=== PATIENT | male | born 1960 | race African-American/Black ===

== ENCOUNTER 2016-03-03 19:45 | Emergency (ER) | payer SELFPAY ==
[~2016-03-03 19:45] MED LIST: AZIT250T6 PO; BUDE10.2 IH; LABE100T3 PO; LISI1TAB7 PO; PRED-220 PO; PRED20TA PO; PRED50TA PO; PROAIR HFA8.5 GM INH; SIMV10TA PO; TIOT18CA IH
[2016-03-03] MEDS ORDERED: IPRATRPIUM/ALBUTEROL 0.5/2.5MG 3 ML NEBU. NEB ONE (22:30)
[2016-03-03] MEDS ORDERED: methylPREDNISolone SOD SUCC PF 125 MG/2 ML VIAL. IV ONE (22:30)
[2016-03-03 23:04] LABS: BASO % 1 % (0-3); EOS % 3 % (0-3); HEMATOCRIT 41.1 % (39.0-53.0); HEMOGLOBIN 13.9 g/dL (13.0-17.5); LYMPH # 0.8 x10^3/uL (1.0-4.8); LYMPH % 23 % (24-48); MEAN CORPUSCULAR HEMOGLOBIN 31 pg (25-35); MEAN CORPUSCULAR HGB CONC 34 g/dL (31-37); MEAN CORPUSCULAR VOLUME 92 fL (79-100); MONO % 16 % (0-9); NEUT % 58 % (31-73); PLATELET COUNT 128 x10^3/uL (140-400); RED BLOOD COUNT 4.46 x10^6/uL (4.30-5.70); RED CELL DISTRIBUTION WIDTH 13.7 % (11.5-14.5); WHITE BLOOD COUNT 3.3 x10^3/uL (4.0-11.0)
[2016-03-03 23:14] LABS: CALCIUM 8.5 mg/dL (8.5-10.1); CREATININE 0.9 mg/dL (0.7-1.3); GFR 105.6; POTASSIUM 3.8 mmol/L (3.5-5.1)
[2016-03-03 23:22] LABS: ALBUMIN 3.4 g/dL (3.4-5.0); ALBUMIN/GLOBULIN RATIO 1.1 (1.0-1.7); TOTAL BILIRUBIN 0.8 mg/dL (0.2-1.0); TOTAL PROTEIN 6.5 g/dL (6.4-8.2)
[2016-03-03 23:29] LABS: OBC FLU VALID
[2016-03-03 23:55] VITALS: BP 125/71
[2016-03-04] MEDS ORDERED: PRED50TA PO (00:05)
--- NOTE | 2016-03-04 00:05 | PHYS DOC ---
Past Medical History Past Medical History: Bronchitis, CHF, COPD, High Cholesterol, Hypertension, Other Additional Past Medical Histor: EMPHESEMA Past Surgical History: Other Additional Past Surgical Histo: HERNIAS Alcohol Use: None Drug Use: None Adult General Chief Complaint Chief Complaint: SHORTNESS OF BREATH HPI HPI Patient is a 55 year old gentleman with a history significant for COPD presents to the ER today complaining of shortness of breath. Patient reports that increasing shortness of breath over the last several days. Patient does have a history of hypertension and severe COPD. Patient denies any history of diabetes liver or kidney problems. Patient denies any history of coronary artery disease in the past. Patient reports he stopped smoking approximately one year ago. Patient denies any alcohol or drugs. Patient reports his only surgery in the past with an inguinal hernia repair. Patient has any fever or shaking chills. Patient denies any change in his cough. Patient denies any change in chest pain. Patient has any nausea vomiting diarrhea. Patient denies any rhinorrhea. Patient reports that he has MDIs at home however he does not use any nebulizers. Patient's primary care physicians at [facility]. Patient reports that he does have an allergy to Solu-Medrol is refusing IV site Medrol here in the ER however he has agreed to take by mouth prednisone. Review of Systems Review of Systems Constitutional: Denies fever or chills [] Eyes: Denies change in visual acuity, redness, or eye pain [] Review of systems are negative except as documented in history of present illness portion. Current Medications Current Medications Current Medications Medications (Trade) Dose Ordered Sig/Candy Start Time Stop Time Status Last Admin Dose Admin Albuterol/ Ipratropium (Duoneb) 3 ml 1X ONCE 03/03/16 22:30 03/03/16 22:31 DC 03/03/16 22:36 3 ML Methylprednisolone Sodium Succinate (Solu-Medrol 125mg Vial) 125 mg 1X ONCE 03/03/16 22:30 03/03/16 22:31 DC Allergies Allergies Allergies Coded Allergies Type Severity Reaction Last Updated Verified methylprednisolone Adverse Reaction Severe Shortness of Air 02/08/16 Yes Physical Exam Physical Exam Constitutional: Well developed, well nourished, no acute distress, non-toxic appearance. [] HENT: Normocephalic, atraumatic, bilateral external ears normal, oropharynx moist, no oral exudates, nose normal. [] Eyes: PERRLA, EOMI, conjunctiva normal, no discharge. [] Neck: Normal range of motion, no tenderness, supple, no stridor. [] Cardiovascular:Heart rate regular rhythm, no murmur [] Lungs & Thorax: Bilateral breath sounds inspiratory and expiratory wheezing. Abdomen: Bowel sounds normal, soft, no tenderness, no masses, no pulsatile masses. [] Skin: Warm, dry, no erythema, no rash. [] Back: No tenderness, no CVA tenderness. [] Extremities: No tenderness, no cyanosis, no clubbing, ROM intact, no edema. [] Neurologic: Alert and oriented X 3, normal motor function, normal sensory function, no focal deficits noted. [] Psychologic: Affect normal, judgement normal, mood normal. [] Current Patient Data Vital Signs Vital Signs Date Time Temp Pulse Resp B/P Pulse Ox O2 Delivery O2 Flow Rate FiO2 03/03/16 22:34 96 Nasal Cannula 2.0 03/03/16 21:30 98.6 100 22 132/66 98.6 Lab Values Laboratory Tests Test 03/03/16 22:53 03/03/16 23:05 White Blood Count 3.3x10^3/uL (4.0-11.0) L Red Blood Count 4.46x10^6/uL (4.30-5.70) Hemoglobin 13.9g/dL (13.0-17.5) Hematocrit 41.1% (39.0-53.0) Mean Corpuscular Volume 92fL (79-100) Mean Corpuscular Hemoglobin 31pg (25-35) Mean Corpuscular Hemoglobin Concent 34g/dL (31-37) Red Cell Distribution Width 13.7% (11.5-14.5) Platelet Count 128x10^3/uL (140-400) L Neutrophils (%) (Auto) 58% (31-73) Lymphocytes (%) (Auto) 23% (24-48) L Monocytes (%) (Auto) 16% (0-9) H Eosinophils (%) (Auto) 3% (0-3) Basophils (%) (Auto) 1% (0-3) Neutrophils # (Auto) 1.9x10^3uL (1.8-7.7) Lymphocytes # (Auto) 0.8x10^3/uL (1.0-4.8) L Monocytes # (Auto) 0.5x10^3/uL (0.0-1.1) Eosinophils # (Auto) 0.1x10^3/uL (0.0-0.7) Basophils # (Auto) 0.0x10^3/uL (0.0-0.2) Sodium Level 142mmol/L (136-145) Potassium Level 3.8mmol/L (3.5-5.1) Chloride Level 107mmol/L (98-107) Carbon Dioxide Level 29mmol/L (21-32) Anion Gap 6 (6-14) Blood Urea Nitrogen 15mg/dL (8-26) Creatinine 0.9mg/dL (0.7-1.3) Estimated GFR (Cockcroft-Gault) 105.6 BUN/Creatinine Ratio 17 (6-20) Glucose Level 97mg/dL (70-99) Calcium Level 8.5mg/dL (8.5-10.1) Total Bilirubin 0.8mg/dL (0.2-1.0) Aspartate Amino Transferase (AST) 28U/L (15-37) Alanine Aminotransferase (ALT) 38U/L (16-63) Alkaline Phosphatase 60U/L (46-116) Troponin I Quantitative 0.031ng/mL (0.000-0.055) Total Protein 6.5g/dL (6.4-8.2) Albumin 3.4g/dL (3.4-5.0) Albumin/Globulin Ratio 1.1 (1.0-1.7) Influenza Type A Antigen Negative (NEGATIVE) Influenza Type B Antigen Negative (NEGATIVE) Laboratory Tests 03/03/16 22:53 Laboratory Tests 03/03/16 22:53 EKG EKG EKG reveals normal sinus rhythm and heart rate is 76. Normal intervals. No evidence of ischemia. Scrap Bunch Maker by Linda. [] Radiology/Procedures Radiology/Procedures [] Chest x-ray reveals bullous disease in the left upper lobe. This does not appear to be a pneumothorax. No infiltrates or effusions. No significant change from prior chest x-ray of November 2015. Course & Med Decision Making Course & Med Decision Making Pertinent Labs and Imaging studies reviewed. (See chart for details) [] A/P #1 COPD exacerbation. This is a 55-year-old woman with a history significant for severe COPD presents here today complaining of shortness of breath. Patient reports that he utilizes 2 L of O2 at home. Patient reports his pulse ox here on 2 L is 93-95%. Patient reports he is significantly feeling better after the nebulizer treatment here in the ER. Patient's Corinne Porter without any discomfort at this time. Patient appears very comfortable. Patient speaking in full sentences. Patient is sitting up watching his iPhone without any distress. Dragon Disclaimer Dragon Disclaimer This electronic medical record was generated, in whole or in part, using a voice recognition dictation system. Departure Departure Impression: Primary Impression: COPD with exacerbation Disposition: HOME, SELF-CARE Condition: IMPROVED Referrals: NO PCP (PCP) Patient Instructions: Chronic Obstructive Pulmonary Disease Exacerbation Scripts Prednisone 50 Mg Tablet1 Tab PO DAILY #5 TAB Prov:STEFANIE BOND MD 03/04/16 STEFANIE BOND MD Mar 04, 2016 00:05
[2016-03-04] MEDS ORDERED: PREDNISONE 20 MG TABLET PO ONE (00:30)
--- NOTE | 2016-03-04 08:36 | RAD ---
Portable chest, 03/03/2016: History: Shortness of breath Comparison is made to a study from 02/08/2016. The heart size is normal. There is decreased vascularity in the left upper chest as noted on the previous study, probably due to emphysema. There is mild parenchymal scarring. No acute infiltrates are seen. There is no evidence of pleural fluid. IMPRESSION: 1. Emphysema with parenchymal scarring. 2. No acute abnormality is detected.
--- NOTE | 2016-03-04 12:23 | EKG ---
[facility] [address] [place] [address] Test Date: 2016-03-03 Test Time: 23:05:22 Pat Name: KAYLA JONES Department: Room: Gender: M Meeting Planner: : 1960 Requested By: STEFANIE BOND Order Number: [id number] Reading MD: Saba Perez Measurements Intervals [place] Rate: 76 P: 77 [place]: 212 QRS: 31 QRSD: 82 T: 69 QT: 392 QTc: 445 Interpretive Statements SINUS RHYTHM T ABNORMALITY IN HIGH LATERAL LEADS ABNORMAL ECG RI6.01 No previous ECG available for comparison Electronically Signed On 03-06-2016 0:26:10 BLOCK MECHANIC by Saba Perez
== END 2016-03-04 00:35 | disposition home or self-care (01) ==
LOC: ER 19:45
DX: J44.1 Chronic obstructive pulmonary disease with (acute) exacerbation (principal); E78.00 Pure hypercholesterolemia, unspecified; I11.0 Hypertensive heart disease with heart failure; I50.9 Heart failure, unspecified; Z87.891 Personal history of nicotine dependence; Z88.8 Allergy status to other drugs, medicaments and biological substances
CPT/HCPCS: 36415; 71010; 80053; 84484; 85027; 87804; 93005; 94250; 94640; 99285; J7512; J7620

== ENCOUNTER 2016-03-23 19:37 | Inpatient (IN) | payer MEDICAID ==
[~2016-03-23] VITALS: Ht 180.3 cm; Wt 78.5 kg
[2016-03-23 21:27] LABS: BASO % 1 % (0-3); EOS % 2 % (0-3); HEMATOCRIT 43.8 % (39.0-53.0); HEMOGLOBIN 14.8 g/dL (13.0-17.5); LYMPH # 0.6 x10^3/uL (1.0-4.8); LYMPH % 18 % (24-48); MEAN CORPUSCULAR HEMOGLOBIN 31 pg (25-35); MEAN CORPUSCULAR HGB CONC 34 g/dL (31-37); MEAN CORPUSCULAR VOLUME 92 fL (79-100); MONO % 13 % (0-9); NEUT % 67 % (31-73); PLATELET COUNT 165 x10^3/uL (140-400); RED BLOOD COUNT 4.77 x10^6/uL (4.30-5.70); RED CELL DISTRIBUTION WIDTH 13.5 % (11.5-14.5); WHITE BLOOD COUNT 3.4 x10^3/uL (4.0-11.0)
[2016-03-23 21:45] LABS: CALCIUM 8.5 mg/dL (8.5-10.1); CREATININE 1.1 mg/dL (0.7-1.3); GFR 83.8; POTASSIUM 3.5 mmol/L (3.5-5.1)
[2016-03-23 21:50] LABS: ALBUMIN 3.5 g/dL (3.4-5.0); DIRECT BILIRUBIN 0.3 mg/dL (0.0-0.2); TOTAL BILIRUBIN 0.9 mg/dL (0.2-1.0); TOTAL PROTEIN 6.7 g/dL (6.4-8.2)
[2016-03-23] MEDS ORDERED: ONDANSETRON PF 4 MG/2 ML VIAL. IV PRN (23:15)
--- NOTE | 2016-03-23 23:20 | RAD ---
PROCEDURE CT chest without contrast HISTORY Hypoxia, COPD, congestive heart failure, abnormal chest x-ray TECHNIQUE Helical noncontrast CT imaging of the chest was acquired Exposure: One or more of the following individualized dose reduction techniques were utilized for this exam: 1. Automated exposure control. 2. Adjustment of the mA and/or kV according to patient size. 3. Use of iterative reconstruction technique. COMPARISON No priors available at time of exam FINDINGS Calcified plaque of the coronary arteries. Thoracic aorta and pulmonary vessels are unremarkable. Heart size is normal. No adenopathy in the chest. 4 millimeter right upper lobe posterior segment pulmonary nodule axial image 23 which likely has central calcification. Pulmonary emphysema. There is a large left upper lobe apical posterior segment bulla displacing the remainder of the upper lobe and lingula anteriorly. Two small nodules within the lingula largest measuring 4 millimeters on image 42. Inferior lingula subpleural linear atelectasis or scar measures 2 centimeters in length and 4 millimeters in thickness. No pleural effusions. Bones are unremarkable. IMPRESSION 1. No acute process. 2. Pulmonary emphysema. There is a large left upper lobe apical posterior bulla displacing the remainder of the upper lobe and lingula anteriorly. 3. Pulmonary nodules largest measuring 4 millimeters. Management per the Fleischner guidelines may be of benefit. Electronically signed by: Donnie Nicole MD (Mar 23, 2016 23:18:32)
[2016-03-23] MEDS ORDERED: IPRATRPIUM/ALBUTEROL 0.5/2.5MG 3 ML NEBU. NEB ONE (23:45)
--- NOTE | 2016-03-24 00:39 | PHYS DOC ---
Past Medical History Past Medical History: Bronchitis, CHF, COPD, High Cholesterol, Hypertension, Other Additional Past Medical Histor: EMPHESEMA Past Surgical History: Other Additional Past Surgical Histo: HERNIAS Alcohol Use: None Drug Use: None Adult General Chief Complaint Chief Complaint: LOWER EXTREMITY SWELLING HPI HPI 55-year-old male presenting to the emergency department today with worsening shortness of breath and bilateral lower extremity edema started 2 days ago. He reports history of COPD and CHF. The patient was hypoxic on initial triage at approximate 7885% on room air. He denies chest pain. Onset 2 days. Location chest. Duration intermittent. Worse with walking. Associated with leg swelling. Review of systems is negative for fevers chills nausea vomiting or diaphoresis. All other review of systems is negative unless otherwise noted in history of present illness. Review of Systems Review of Systems SEE ABOVE. Allergies Allergies Allergies Coded Allergies Type Severity Reaction Last Updated Verified methylprednisolone Adverse Reaction Severe Shortness of Air 02/08/16 Yes Physical Exam Physical Exam Constitutional: Well developed, well nourished, no acute distress, non-toxic appearance. HENT: Normocephalic, atraumatic, bilateral external ears normal, oropharynx moist, no oral exudates, nose normal. [] Eyes: PERRLA, EOMI, conjunctiva normal, no discharge. Neck: Normal range of motion, no tenderness, supple, no stridor. [] Cardiovascular:Heart rate regular rhythm, no murmur Lungs & Thorax: Bilateral breath sounds clear to auscultation. no wheezing or crackles present. Abdomen: Bowel sounds normal, soft, no tenderness, no masses, no pulsatile masses. [] Skin: Warm, dry, no erythema, no rash. [] Back: No tenderness, no CVA tenderness. Extremities: No tenderness, no cyanosis, no clubbing, ROM intact, no edema. Neurologic: Alert and oriented X 3, normal motor function, normal sensory function, no focal deficits noted. Psychologic: Affect normal, judgement normal, mood normal. [] Current Patient Data Vital Signs Vital Signs Date Time Temp Pulse Resp B/P Pulse Ox O2 Delivery O2 Flow Rate FiO2 03/23/16 20:56 98.5 94 22 158/95 94 Nasal Cannula 2 98.5 Lab Values Laboratory Tests Test 03/23/16 21:10 White Blood Count 3.4x10^3/uL (4.0-11.0) L Red Blood Count 4.77x10^6/uL (4.30-5.70) Hemoglobin 14.8g/dL (13.0-17.5) Hematocrit 43.8% (39.0-53.0) Mean Corpuscular Volume 92fL (79-100) Mean Corpuscular Hemoglobin 31pg (25-35) Mean Corpuscular Hemoglobin Concent 34g/dL (31-37) Red Cell Distribution Width 13.5% (11.5-14.5) Platelet Count 165x10^3/uL (140-400) Neutrophils (%) (Auto) 67% (31-73) Lymphocytes (%) (Auto) 18% (24-48) L Monocytes (%) (Auto) 13% (0-9) H Eosinophils (%) (Auto) 2% (0-3) Basophils (%) (Auto) 1% (0-3) Neutrophils # (Auto) 2.3x10^3uL (1.8-7.7) Lymphocytes # (Auto) 0.6x10^3/uL (1.0-4.8) L Monocytes # (Auto) 0.5x10^3/uL (0.0-1.1) Eosinophils # (Auto) 0.1x10^3/uL (0.0-0.7) Basophils # (Auto) 0.0x10^3/uL (0.0-0.2) Sodium Level 145mmol/L (136-145) Potassium Level 3.5mmol/L (3.5-5.1) Chloride Level 107mmol/L (98-107) Carbon Dioxide Level 31mmol/L (21-32) Anion Gap 7 (6-14) Blood Urea Nitrogen 17mg/dL (8-26) Creatinine 1.1mg/dL (0.7-1.3) Estimated GFR (Cockcroft-Gault) 83.8 Glucose Level 132mg/dL (70-99) H Calcium Level 8.5mg/dL (8.5-10.1) Total Bilirubin 0.9mg/dL (0.2-1.0) Direct Bilirubin 0.3mg/dL (0.0-0.2) H Aspartate Amino Transferase (AST) 34U/L (15-37) Alanine Aminotransferase (ALT) 39U/L (16-63) Alkaline Phosphatase 70U/L (46-116) Troponin I Quantitative 0.025ng/mL (0.000-0.055) VI-Bah-D-Type Natriuretic Peptide 46pg/mL (0-124) Total Protein 6.7g/dL (6.4-8.2) Albumin 3.5g/dL (3.4-5.0) Lipase 183U/L (73-393) Laboratory Tests 03/23/16 21:10 Laboratory Tests 03/23/16 21:10 EKG EKG EKG shows sinus rhythm with regular rate. Normal intervals. Normal axis. ST segments are congruent. Not suggestive of ACS. Reviewed by myself.[] Radiology/Procedures Radiology/Procedures Chest x-ray shows no obvious infiltrate or pneumothorax. [] Course & Med Decision Making Course & Med Decision Making Pertinent Labs and Imaging studies reviewed. (See chart for details) [] 55-year-old male presenting to the emergency department today with hypoxia bilateral lower extremity pain and shortness of breath. On examination the patient was hypoxic and placed on nasal cannula. Otherwise mildly hypertensive. Physical exam was otherwise unremarkable. Duo neb given in the emergency department. EKG franki. Chest x-ray shows blood in the left upper lobe confirmed by CT. Otherwise blood work shows mild leukopenia chemistry panel mostly unremarkable. Troponin within the reference range of normal. The patient was subsequently admitted to our hospital for further evaluation workup and care. Pulmonology consult placed. Dragon Disclaimer Dragon Disclaimer This electronic medical record was generated, in whole or in part, using a voice recognition dictation system. Departure Departure Impression: Primary Impression: Hypoxemia Additional Impression: Hypoxia Disposition: ADMITTED INPATIENT Admitting Physician: Dar Hathaway Condition: STABLE Referrals: UNKNOWN PCP NAME (PCP) Problem Qualifiers ALCIRA SANTANA MD Mar 24, 2016 00:39
[2016-03-24] MEDS ORDERED: HYDR50TA6 PO (01:43)
[2016-03-24] MEDS: MORPHINE SULFATE 2 MG/ML DISP.SYRIN. IV PRN ×3 (01:57→16:41)
[2016-03-24 05:25] LABS: BASO % 1 % (0-3); EOS % 3 % (0-3); HEMATOCRIT 41.3 % (39.0-53.0); HEMOGLOBIN 13.7 g/dL (13.0-17.5); LYMPH # 0.5 x10^3/uL (1.0-4.8); LYMPH % 22 % (24-48); MEAN CORPUSCULAR HEMOGLOBIN 31 pg (25-35); MEAN CORPUSCULAR HGB CONC 33 g/dL (31-37); MEAN CORPUSCULAR VOLUME 93 fL (79-100); MONO % 17 % (0-9); NEUT % 58 % (31-73); PLATELET COUNT 140 x10^3/uL (140-400); RED BLOOD COUNT 4.44 x10^6/uL (4.30-5.70); RED CELL DISTRIBUTION WIDTH 13.6 % (11.5-14.5); WHITE BLOOD COUNT 2.3 x10^3/uL (4.0-11.0)
[2016-03-24 05:26] LABS: CALCIUM 8.2 mg/dL (8.5-10.1); CREATININE 0.9 mg/dL (0.7-1.3); GFR 105.6; POTASSIUM 3.6 mmol/L (3.5-5.1)
--- NOTE | 2016-03-24 06:30 | EKG ---
[facility] [address] [place] [address] Test Date: 2016-03-23 Test Time: 21:01:02 Pat Name: KAYLA JONES Department: Room: 536 1 Gender: M Outpatient Case Manager: : 1960 Requested By: ALCIRA SANTANA Order Number: [id number] Reading MD: Saba Perez Measurements Intervals [place] Rate: 77 P: 118 [place]: 198 QRS: 1 QRSD: 86 T: 68 QT: 378 QTc: 430 Interpretive Statements SINUS RHYTHM NORMAL EKG Electronically Signed On 03-26-2016 18:24:42 DYE COLORIST FORMULATOR by Saba Perez
--- NOTE | 2016-03-24 07:35 | RAD ---
Portable AP upright view CXR: Clinical indications: Bilateral leg swelling. Chest pain. Comparison: March 03, 2016. Findings: Emphysema is seen within the left upper lobe. No acute lung infiltrate or pleural effusion or pulmonary edema or lung mass or pneumothorax is seen. The heart size, pulmonary vasculature, mediastinum and both maye are unremarkable. Impression: No acute radiographic abnormality is seen.
[2016-03-24 07:57] VITALS: BP 136/88
[2016-03-24] MEDS ORDERED: IPRATRPIUM/ALBUTEROL 0.5/2.5MG 3 ML NEBU. NEB SCH (08:00)
--- NOTE | 2016-03-24 08:43 | PDOC ---
Provider Note Provider Note dictated VIN MEAD MD Mar 24, 2016 08:43
[2016-03-24] MEDS ORDERED: PREDNISONE 20 MG TABLET PO SCH (09:00)
--- NOTE | 2016-03-24 09:12 | PDOC1 ---
History and Physical Date of Admission Date of Admission DATE: 03/24/16 TIME: 09:11 Identification/Chief Complaint Chief Complaint short of breath Source Source: Chart review, Patient History of Present Illness History of Present Illness 55-year-old male presenting to the emergency department today with worsening shortness of breath and bilateral lower extremity edema started 2 days ago. He reports history of COPD and CHF. The patient was hypoxic on initial triage at approximate 7885% on room air. He denies chest pain. Onset 2 days. Location chest. Duration intermittent. Worse with walking. Associated with leg swelling. Review of systems is negative for fevers chills nausea vomiting or diaphoresis. All other review of systems is negative unless otherwise noted in history of present illness. Past Medical History Cardiovascular: CAD, HTN Pulmonary: COPD CENTRAL NERVOUS SYSTEM: Other GI: No pertinent hx Heme/Onc: No pertinent hx Hepatobiliary: No pertinent hx Psych: No pertinent hx Musculoskeletal: No pain Rheumatologic: No pertinent hx Infectious disease: No pertinent hx Renal/: No pertinent hx Endocrine: No pertinent hx Past Surgical History Past Surgical History: Hernia Repair Family History Family History: Coronary Artery Disease Social History ALCOHOL: none Drugs: None Current Problem List Problem List Problems Medical Problems: (1) Hypoxemia Status: Acute (2) Hypoxia Status: Acute Problems: Current Medications Current Medications Current Medications Ondansetron HCl (Zofran) 4 mg PRN Q8HRS PRN IV NAUSEA/VOMITING; Start 03/23/16 at 23:15; Stop 03/24/16 at 23:14 Morphine Sulfate 2 mg PRN Q2HR PRN IV PAIN Last administered on 03/24/16 01:57 ; Start 03/23/16 at 23:15; Stop 03/24/16 at 23:14 Albuterol/ Ipratropium (Duoneb) 3 ml RTQID NEB ; Start 03/24/16 at 08:00; Stop 03/24/16 at 09:02; Status DC Albuterol/ Ipratropium (Duoneb) 3 ml 1X ONCE NEB Last administered on 23:42; Start 03/23/16 at 23:45; Stop 03/23/16 at 23:46; Status DC Albuterol/ Ipratropium (Duoneb) 3 ml Q4HRS W/A NEB ; Start 03/24/16 at 10:00; Status UNV Budesonide (Pulmicort) 0.5 mg RTBID NEB ; Start 03/24/16 at 09:00; Status UNV Prednisone (Prednisone) 40 mg DAILY PO ; Start 03/24/16 at 09:00; Stop 03/24/16 at 09:04; Status DC Simvastatin (Zocor) 10 mg QHS PO ; Start 03/24/16 at 21:00; Status UNV Non-Formulary Medication 2 inh DAILY IH ; Start 03/25/16 at 09:00; Status UNV Prednisone (Prednisone) 60 mg DAILY PO ; Start 03/25/16 at 09:00; Status UNV Active Scripts Active Proair Hfa Inhaler (Albuterol Sulfate) 8.5 Gm Hfa.aer.ad 2 Puff INH Q4HRS PRN Prednisone 20 Mg Tablet 20 Mg PO DAILY 5 Days Reported Hydrochlorothiazide Tablet (Hydrochlorothiazide) 50 Mg Tablet 25 Mg PO DAILY Symbicort 160-4.5 Mcg Inhaler (Budesonide/Formoterol Fumarate) 10.2 Gm Hfa.aer.ad 2 Puff IH BID Spiriva (Tiotropium Waterfall) 18 Mcg Cap.w.dev 2 Inh IH DAILY Zocor (Simvastatin) 10 Mg Tablet 1 Tab PO QHS Allergies Allergies: Coded Allergies: methylprednisolone (Verified Adverse Reaction, Severe, Shortness of Air, 02/08/16) Vitals Vitals Vital Signs Date Time Temp Pulse Resp B/P Pulse Ox O2 Delivery O2 Flow Rate FiO2 03/24/16 07:57 97.7 74 20 136/88 95 Room Air 97.7 03/24/16 02:27 2.0 Labs Labs Laboratory Tests Test 03/23/16 21:10 03/24/16 04:45 White Blood Count 3.4x10^3/uL (4.0-11.0) 2.3x10^3/uL (4.0-11.0) Red Blood Count 4.77x10^6/uL (4.30-5.70) 4.44x10^6/uL (4.30-5.70) Hemoglobin 14.8g/dL (13.0-17.5) 13.7g/dL (13.0-17.5) Hematocrit 43.8% (39.0-53.0) 41.3% (39.0-53.0) Mean Corpuscular Volume 92fL (79-100) 93fL (79-100) Mean Corpuscular Hemoglobin 31pg (25-35) 31pg (25-35) Mean Corpuscular Hemoglobin Concent 34g/dL (31-37) 33g/dL (31-37) Red Cell Distribution Width 13.5% (11.5-14.5) 13.6% (11.5-14.5) Platelet Count 165x10^3/uL (140-400) 140x10^3/uL (140-400) Neutrophils (%) (Auto) 67% (31-73) 58% (31-73) Lymphocytes (%) (Auto) 18% (24-48) 22% (24-48) Monocytes (%) (Auto) 13% (0-9) 17% (0-9) Eosinophils (%) (Auto) 2% (0-3) 3% (0-3) Basophils (%) (Auto) 1% (0-3) 1% (0-3) Neutrophils # (Auto) 2.3x10^3uL (1.8-7.7) 1.4x10^3uL (1.8-7.7) Lymphocytes # (Auto) 0.6x10^3/uL (1.0-4.8) 0.5x10^3/uL (1.0-4.8) Monocytes # (Auto) 0.5x10^3/uL (0.0-1.1) 0.4x10^3/uL (0.0-1.1) Eosinophils # (Auto) 0.1x10^3/uL (0.0-0.7) 0.1x10^3/uL (0.0-0.7) Basophils # (Auto) 0.0x10^3/uL (0.0-0.2) 0.0x10^3/uL (0.0-0.2) Sodium Level 145mmol/L (136-145) 145mmol/L (136-145) Potassium Level 3.5mmol/L (3.5-5.1) 3.6mmol/L (3.5-5.1) Chloride Level 107mmol/L (98-107) 109mmol/L (98-107) Carbon Dioxide Level 31mmol/L (21-32) 32mmol/L (21-32) Anion Gap 7 (6-14) 4 (6-14) Blood Urea Nitrogen 17mg/dL (8-26) 15mg/dL (8-26) Creatinine 1.1mg/dL (0.7-1.3) 0.9mg/dL (0.7-1.3) Estimated GFR (Cockcroft-Gault) 83.8 105.6 Glucose Level 132mg/dL (70-99) 125mg/dL (70-99) Calcium Level 8.5mg/dL (8.5-10.1) 8.2mg/dL (8.5-10.1) Total Bilirubin 0.9mg/dL (0.2-1.0) Direct Bilirubin 0.3mg/dL (0.0-0.2) Aspartate Amino Transf (AST/SGOT) 34U/L (15-37) Alanine Aminotransferase (ALT/SGPT) 39U/L (16-63) Alkaline Phosphatase 70U/L (46-116) Troponin I Quantitative 0.025ng/mL (0.000-0.055) 0.028ng/mL (0.000-0.055) LK-Gpd-D-Type Natriuretic Peptide 46pg/mL (0-124) Total Protein 6.7g/dL (6.4-8.2) Albumin 3.5g/dL (3.4-5.0) Lipase 183U/L (73-393) Laboratory Tests Test 03/23/16 21:10 03/24/16 04:45 White Blood Count 3.4x10^3/uL (4.0-11.0) 2.3x10^3/uL (4.0-11.0) Red Blood Count 4.77x10^6/uL (4.30-5.70) 4.44x10^6/uL (4.30-5.70) Hemoglobin 14.8g/dL (13.0-17.5) 13.7g/dL (13.0-17.5) Hematocrit 43.8% (39.0-53.0) 41.3% (39.0-53.0) Mean Corpuscular Volume 92fL (79-100) 93fL (79-100) Mean Corpuscular Hemoglobin 31pg (25-35) 31pg (25-35) Mean Corpuscular Hemoglobin Concent 34g/dL (31-37) 33g/dL (31-37) Red Cell Distribution Width 13.5% (11.5-14.5) 13.6% (11.5-14.5) Platelet Count 165x10^3/uL (140-400) 140x10^3/uL (140-400) Neutrophils (%) (Auto) 67% (31-73) 58% (31-73) Lymphocytes (%) (Auto) 18% (24-48) 22% (24-48) Monocytes (%) (Auto) 13% (0-9) 17% (0-9) Eosinophils (%) (Auto) 2% (0-3) 3% (0-3) Basophils (%) (Auto) 1% (0-3) 1% (0-3) Neutrophils # (Auto) 2.3x10^3uL (1.8-7.7) 1.4x10^3uL (1.8-7.7) Lymphocytes # (Auto) 0.6x10^3/uL (1.0-4.8) 0.5x10^3/uL (1.0-4.8) Monocytes # (Auto) 0.5x10^3/uL (0.0-1.1) 0.4x10^3/uL (0.0-1.1) Eosinophils # (Auto) 0.1x10^3/uL (0.0-0.7) 0.1x10^3/uL (0.0-0.7) Basophils # (Auto) 0.0x10^3/uL (0.0-0.2) 0.0x10^3/uL (0.0-0.2) Sodium Level 145mmol/L (136-145) 145mmol/L (136-145) Potassium Level 3.5mmol/L (3.5-5.1) 3.6mmol/L (3.5-5.1) Chloride Level 107mmol/L (98-107) 109mmol/L (98-107) Carbon Dioxide Level 31mmol/L (21-32) 32mmol/L (21-32) Anion Gap 7 (6-14) 4 (6-14) Blood Urea Nitrogen 17mg/dL (8-26) 15mg/dL (8-26) Creatinine 1.1mg/dL (0.7-1.3) 0.9mg/dL (0.7-1.3) Estimated GFR (Cockcroft-Gault) 83.8 105.6 Glucose Level 132mg/dL (70-99) 125mg/dL (70-99) Calcium Level 8.5mg/dL (8.5-10.1) 8.2mg/dL (8.5-10.1) Total Bilirubin 0.9mg/dL (0.2-1.0) Direct Bilirubin 0.3mg/dL (0.0-0.2) Aspartate Amino Transf (AST/SGOT) 34U/L (15-37) Alanine Aminotransferase (ALT/SGPT) 39U/L (16-63) Alkaline Phosphatase 70U/L (46-116) Troponin I Quantitative 0.025ng/mL (0.000-0.055) 0.028ng/mL (0.000-0.055) EO-Qec-Y-Type Natriuretic Peptide 46pg/mL (0-124) Total Protein 6.7g/dL (6.4-8.2) Albumin 3.5g/dL (3.4-5.0) Lipase 183U/L (73-393) VTE Prophylaxis Ordered VTE Prophylaxis Devices: Yes PATRIA SHIELDS MD Mar 24, 2016 09:12
[2016-03-24] MEDS: IPRATRPIUM/ALBUTEROL 0.5/2.5MG 3 ML NEBU. NEB SCH ×4 (09:46→20:35)
[2016-03-24] MEDS: BUDESONIDE 0.5 MG/2 ML NEBU NEB SCH ×2 (09:46→20:35)
--- NOTE | 2016-03-24 10:14 | CONS ---
DATE OF CONSULTATION: 03/23/2016 ATTENDING PHYSICIAN: Dr. Hathaway. REASON FOR CONSULTATION: Lower extremity edema and dyspnea. HISTORY OF PRESENT ILLNESS: The patient is a 55-year-old male who has no significant history of tobacco use. He presented to Emergency Room with complaint of lower extremity edema that started few days ago. He has some mild shortness of breath. Mild cough. He has no history of pulmonary embolism, but he reports history of DVT 2 years ago on the right side. He thinks that he took 3 months of Coumadin. Initial evaluation in the ER showed an oxygen saturation of 94% on 2 liters. Reportedly, it was in the high 80s on room air. Currently, he is saturating 94% on 2 liters. His blood pressure is stable. He is on room air. His CT chest without contrast was reviewed by me and it shows a large bullous emphysema in the left upper lobe. There was probably tiny questionable 4-mm nodule in the lingula. Otherwise, no definite infiltrates seen, may be minimal parenchymal scarring in the right lower lobe. Consultation requested for further evaluation and management. PAST MEDICAL HISTORY: No significant history of tobacco use, but has evidence of bullous emphysema. History of dyslipidemia, hypertension. PAST SURGICAL HISTORY: Hernias. MEDICATION ALLERGIES: METHYLPREDNISONE. CURRENT MEDICATIONS: Reviewed including DuoNeb. REVIEW OF SYSTEMS: Twelve-point systems obtained. Pertinent positives discussed in history of present illness, otherwise noncontributory. All systems that were negative were reviewed as well. SOCIAL HISTORY: Denies history of significant tobacco use. 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 FAMILY HISTORY: Noncontributory to lungs. PHYSICAL EXAMINATION: VITAL SIGNS: Stable, pulse ox 94% on room air. NECK: Supple. LUNGS: With diminished breath sounds. No crackles, no wheezes. CARDIOVASCULAR: Regular rate and rhythm. ABDOMEN: Soft, obese. EXTREMITIES: With bilateral 2+ pitting edema. LABORATORY DATA: Reviewed. White cell count 2.3, hemoglobin 13.7 and platelets are 140. BUN is 15, creatinine 0.9. IMPRESSION: 1. Lower extremity edema in a patient who has history of deep vein thrombosis in the right leg 2 years ago. I would recommend repeating venous Dopplers of the lower extremities to rule out any recurrent deep vein thrombosis. 2. Mild dyspnea on admission, currently asymptomatic and on room air saturations are 94%. If deep vein thrombosis is positive for any thrombus, then we will consider doing a CT angiogram. 3. Underlying severe bullous lung disease in a patient who has no significant tobacco use. We will consider doing an alpha 1 antitrypsin level. 4. Mild leukopenia, could be viral induced. RECOMMENDATIONS: 1. Obtain venous Dopplers of the lower extremities. 2. If they are positive for DVT, then consider CT angiogram. 3. Continue bronchodilators. 4. Obtain an alpha 1 antitrypsin level. 5. If there is no DVT in the lower extremities, repeat echocardiogram to rule out any LV dysfunction. Previous echo in 2016 is normal ejection fraction. 6. We will follow along with you. Monitor white cell count. VIN MEAD MD DR: ALTAGRACIA/efrain JOB#: [id number] / [id number]
[2016-03-24] MEDS: PREDNISONE 20 MG TABLET PO SCH (10:19)
[2016-03-24 10:49] VITALS: BP 125/93
--- NOTE | 2016-03-24 13:49 | PDOC2 ---
CHARLES HUFFMAN BAND TACKER 03/24/16 1349: CARDIAC CONSULT DATE OF CONSULT Date of Consult DATE: 03/24/16 TIME: 13:31 REASON FOR CONSULT Reason for Consult: CHF CAD REFERRING PHYSICIAN Referring Physician: Frandy SOURCE Source: Chart review, Patient HISTORY OF PRESENT ILLNESS HISTORY OF PRESENT ILLNESS This is a pleasant 55 yo male admitted for complains of SOA and leg swelling. What is bothering him more is his leg swelling. Reports of some SOA in the last week and has been having sinus congestion in the last 3 days in which he has been taking decongestants. He also has been noticing his legs becoming more swollen and worse yesterday at work. Denies any chest pain, palpitations, dizziness. Denies any CAD, he had an EKG in the past and somebody told him of possible DC basing only on EKG but no stress test nor echo was performed at that time. He has HTN, HLP and he is compliant with his medications. He had DVT 2 yrs ago and is not currently on any OAC nor ASA. Currently he is feeling better but worries about his legs. 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 He has had some sinus congestion in the last 3 days and has been taking decongestants. Denies any leg pain, has some SORIANO. PAST MEDICAL HISTORY Cardiovascular: HTN, Hyperlipidemia Pulmonary: COPD CENTRAL NERVOUS SYSTEM: Other (No pertinent history) GI: No pertinent hx Heme/Onc: No pertinent hx, Other (RLE DVT 2 yrs ago) Hepatobiliary: No pertinent hx Psych: No pertinent hx Musculoskeletal: Osteoarthritis Rheumatologic: No pertinent hx PAST SURGICAL HISTORY Past Surgical History: Hernia Repair (right inguinal) FAMILY HISTORY Family History: Coronary Artery Disease (grandmother) SOCIAL HISTORY ALCOHOL: none Drugs: None Lives: with Family CURRENT MEDICATIONS CURRENT MEDICATIONS Current Medications Medications (Trade) Dose Ordered Sig/Candy Route PRN Reason Start Time Stop Time Status Last Admin Dose Admin Morphine Sulfate 2 mg PRN Q2HR PRN IV PAIN 03/23/16 23:15 03/24/16 23:14 03/24/16 10:20 Albuterol/ Ipratropium (Duoneb) 3 ml 1X ONCE NEB 03/23/16 23:45 03/23/16 23:46 DC 03/23/16 23:42 Albuterol/ Ipratropium (Duoneb) 3 ml Q4HRS W/A NEB 03/24/16 10:00 03/24/16 13:08 Budesonide (Pulmicort) 0.5 mg RTBID NEB 03/24/16 09:00 03/24/16 09:46 Prednisone (Prednisone) 60 mg DAILY PO 03/24/16 10:00 03/24/16 10:19 ALLERGIES ALLERGIES: Coded Allergies: methylprednisolone (Verified Adverse Reaction, Severe, Shortness of Air, 02/08/16) ROS Review of System 14 point ROS evaluated with pertinent positives noted per HPI PHYSICAL EXAM General: Alert, Oriented X3, Cooperative, No acute distress HEENT: Atraumatic, Mucous membr. moist/pink Lungs: Other (diminished bases) Heart: Regular rate, Normal S1, Normal S2, Other (2/6 systolic murmur to LLS border) Abdomen: Soft, No tenderness Extremities: No cyanosis, Other (3+ to LLE and 2+ to RLE pitting) Skin: No breakdown, No significant lesion Neuro: Normal speech, Sensation intact Psych/Mental Status: Mental status NL, Mood NL MUSCULOSKELETAL: Osteoarthritic changes both hands VITALS VITALS Vital Signs Date Time Temp Pulse Resp B/P Pulse Ox O2 Delivery O2 Flow Rate FiO2 03/24/16 13:08 96 Nasal Cannula 2.0 03/24/16 10:49 97.7 67 21 125/93 97.7 LABS Lab: Laboratory Tests Test 03/23/16 21:10 03/24/16 04:45 03/24/16 11:20 White Blood Count 3.4x10^3/uL (4.0-11.0) 2.3x10^3/uL (4.0-11.0) Red Blood Count 4.77x10^6/uL (4.30-5.70) 4.44x10^6/uL (4.30-5.70) Hemoglobin 14.8g/dL (13.0-17.5) 13.7g/dL (13.0-17.5) Hematocrit 43.8% (39.0-53.0) 41.3% (39.0-53.0) Mean Corpuscular Volume 92fL (79-100) 93fL (79-100) Mean Corpuscular Hemoglobin 31pg (25-35) 31pg (25-35) Mean Corpuscular Hemoglobin Concent 34g/dL (31-37) 33g/dL (31-37) Red Cell Distribution Width 13.5% (11.5-14.5) 13.6% (11.5-14.5) Platelet Count 165x10^3/uL (140-400) 140x10^3/uL (140-400) Neutrophils (%) (Auto) 67% (31-73) 58% (31-73) Lymphocytes (%) (Auto) 18% (24-48) 22% (24-48) Monocytes (%) (Auto) 13% (0-9) 17% (0-9) Eosinophils (%) (Auto) 2% (0-3) 3% (0-3) Basophils (%) (Auto) 1% (0-3) 1% (0-3) Neutrophils # (Auto) 2.3x10^3uL (1.8-7.7) 1.4x10^3uL (1.8-7.7) Lymphocytes # (Auto) 0.6x10^3/uL (1.0-4.8) 0.5x10^3/uL (1.0-4.8) Monocytes # (Auto) 0.5x10^3/uL (0.0-1.1) 0.4x10^3/uL (0.0-1.1) Eosinophils # (Auto) 0.1x10^3/uL (0.0-0.7) 0.1x10^3/uL (0.0-0.7) Basophils # (Auto) 0.0x10^3/uL (0.0-0.2) 0.0x10^3/uL (0.0-0.2) Sodium Level 145mmol/L (136-145) 145mmol/L (136-145) Potassium Level 3.5mmol/L (3.5-5.1) 3.6mmol/L (3.5-5.1) Chloride Level 107mmol/L (98-107) 109mmol/L (98-107) Carbon Dioxide Level 31mmol/L (21-32) 32mmol/L (21-32) Anion Gap 7 (6-14) 4 (6-14) Blood Urea Nitrogen 17mg/dL (8-26) 15mg/dL (8-26) Creatinine 1.1mg/dL (0.7-1.3) 0.9mg/dL (0.7-1.3) Estimated GFR (Cockcroft-Gault) 83.8 105.6 Glucose Level 132mg/dL (70-99) 125mg/dL (70-99) Calcium Level 8.5mg/dL (8.5-10.1) 8.2mg/dL (8.5-10.1) Total Bilirubin 0.9mg/dL (0.2-1.0) Direct Bilirubin 0.3mg/dL (0.0-0.2) Aspartate Amino Transf (AST/SGOT) 34U/L (15-37) Alanine Aminotransferase (ALT/SGPT) 39U/L (16-63) Alkaline Phosphatase 70U/L (46-116) Troponin I Quantitative 0.025ng/mL (0.000-0.055) 0.028ng/mL (0.000-0.055) 0.030ng/mL (0.000-0.055) HR-Uyf-T-Type Natriuretic Peptide 46pg/mL (0-124) Total Protein 6.7g/dL (6.4-8.2) Albumin 3.5g/dL (3.4-5.0) Lipase 183U/L (73-393) ECHOCARDIOGRAM ECHOCARDIOGRAM <Conclusion> The left ventricle is normal size. The left ventricular systolic function is normal and the ejection fraction is within normal range. The Ejection Fraction is 60-65%. There is no significant aortic valvular stenosis. Doppler and Color Flow revealed trace aortic regurgitation. Doppler and Color Flow revealed no mitral valve regurgitation noted. Doppler and Color Flow revealed trace tricuspid regurgitation. The PA pressure was estimated at 26 mmHg. DATE: 10/29/15 1511 ASSESSMENT/PLAN ASSESSMENT/PLAN 1. AECOPD: mild with likely viral syndrome. No CHF. No prior CAD. 2. Leg edema with past hx of DVT 2 yrs ago 3. HTN 4. HLP 5. Past tobaccoism: quit in 2016 Recommendations 1. TTE today and will note right side gradients 2. Agree with LE venous doppler 3. TSH, lipid panel. 4. Not on any OAC nor antiplatelets. Start on ECASA for primary prevention if no OAC. 5. Continue with home routine HTN/HLP regimen Problems: AVERY ALFARO MD 03/24/16 1903: CARDIAC CONSULT ALLERGIES ALLERGIES: Coded Allergies: methylprednisolone (Verified Adverse Reaction, Severe, Shortness of Air, 02/08/16) ASSESSMENT/PLAN ASSESSMENT/PLAN Patient seen and examined. Agree with DIRECTOR OF STRATEGIC SALES's assessment and plan. Pulm team following for acute COPD exacerbation. Agree with venous duplex scan to evaluate LE edema. No clinical evidence for CHF. Continue current medical regimen. Thank you for your consultation. Problems: CHARLES HUFFMAN APRN Mar 24, 2016 13:49 AVERY ALFARO MD Mar 24, 2016 19:03
--- NOTE | 2016-03-24 14:42 | RAD ---
Indication bilateral leg swelling. Grayscale color Doppler and spectral imaging was performed. Examination was targeted to the veins of the lower extremities. Bilaterally the common femoral, femoral and popliteal vessels demonstrate normal flow compressibility and augmentation. No thrombus is seen. The visualized calf veins, bilaterally, appeared normal. IMPRESSION: Negative bilateral lower extremity venous analysis for DVT
[2016-03-24 15:43] VITALS: BP 132/87
[2016-03-24] MEDS ORDERED: MORPHINE SULFATE 2 MG/ML DISP.SYRIN. IV PRN (16:45)
[2016-03-24] MEDS: OXYCODONE/APAP 7.5/325 TABLET. PO PRN ×2 (17:58→21:55)
[2016-03-24 19:00] VITALS: BP 126/73
[2016-03-24] MEDS: SIMVASTATIN 10 MG TABLET PO SCH (21:55)
[2016-03-24] MEDS ORDERED: DIPHENHYDRAMINE HCL 25 MG CAPSULE PO ONE (22:00)
[2016-03-24 23:00] VITALS: BP 139/85
[2016-03-25 03:00] VITALS: BP 139/85
[2016-03-25] MEDS: OXYCODONE/APAP 7.5/325 TABLET. PO PRN ×2 (06:36→22:18)
[2016-03-25 07:06] LABS: ALBUMIN 3.3 g/dL (3.4-5.0); ALBUMIN/GLOBULIN RATIO 1.2 (1.0-1.7); CALCIUM 8.7 mg/dL (8.5-10.1); GFR 93.5; POTASSIUM 3.6 mmol/L (3.5-5.1); TOTAL PROTEIN 6.1 g/dL (6.4-8.2)
[2016-03-25 07:21] LABS: BASO % 0 % (0-3); EOS % 0 % (0-3); HEMATOCRIT 40.2 % (39.0-53.0); HEMOGLOBIN 13.5 g/dL (13.0-17.5); LYMPH # 0.5 x10^3/uL (1.0-4.8); LYMPH % 11 % (24-48); MEAN CORPUSCULAR HEMOGLOBIN 31 pg (25-35); MEAN CORPUSCULAR HGB CONC 34 g/dL (31-37); MEAN CORPUSCULAR VOLUME 92 fL (79-100); MONO % 12 % (0-9); NEUT % 76 % (31-73); PLATELET COUNT 145 x10^3/uL (140-400); RED BLOOD COUNT 4.38 x10^6/uL (4.30-5.70); RED CELL DISTRIBUTION WIDTH 13.4 % (11.5-14.5); WHITE BLOOD COUNT 4.8 x10^3/uL (4.0-11.0)
--- NOTE | 2016-03-25 07:30 | CARD ---
APPROVED REPORT EXAM: Two-dimensional and M-mode echocardiogram with Doppler and color Doppler. Other Information Quality : GoodHR: 115bpm Rhythm : Tachycardia INDICATION CHF, CAD 2D DIMENSIONS RVDd2.8 (2.9-3.5cm)Left Atrium(2D)3.4 (1.6-4.0cm) IVSd0.6 (0.7-1.1cm)Aortic Root(2D)2.8 (2.0-3.7cm) LVDd4.8 (3.9-5.9cm)LVOT Diameter2.4 (1.8-2.4cm) PWd0.6 (0.7-1.1cm)LVDs3.0 (2.5-4.0cm) FS (%) 38.1 %SV74.0 ml LVEF(%)68.2 (>50%) Aortic Valve AoV Peak Hema.95.6cm/sAoV VTI17.9cm AO Peak GR.3.7mmHgLVOT Peak Hema.101.8cm/s AO Mean GR.2mmHgAVA (VMAX)4.74cm2 Mitral Valve MV E Ynyqcinm58.6cm/sMV E Peak Gr.3mmHg MV DECEL [id number] A Ulhmzjvx77.3cm/s MV E Mean Gr.1mmHgE/A Ratio1.3 MV A [id number] Pulmonary Valve PV Peak Jlngziyl57.9cm/s Tricuspid Valve TR P. Ulwwkixv344nh/sTR Peak Gr.60mmHg Pulmonary Vein S1 Ndbbeorj97.0cm/sD2 Iorxlsau20.7cm/s PVa vqavmbss59cbgq LEFT VENTRICLE The left ventricle is normal size. There is normal left ventricular wall thickness. The left ventricu lar systolic function is normal and the ejection fraction is within normal range. The Ejection Fracti on is 65-70%. There is normal LV segmental wall motion. The left ventricular diastolic function and f illing is normal for age. RIGHT VENTRICLE The right ventricle is mildly dilated. There is normal right ventricular wall thickness. The right ve ntricular systolic function is normal. ATRIA The left atrium size is normal. The right atrium size is normal. The interatrial septum is intact wit h no evidence for an atrial septal defect or patent foramen ovale as noted on 2-D or Doppler imaging. AORTIC VALVE The aortic valve is normal in structure and function. Doppler and Color Flow revealed no significant aortic regurgitation. There is no significant aortic valvular stenosis. MITRAL VALVE The mitral valve is normal in structure and function. There is no evidence of mitral valve prolapse. There is no mitral valve stenosis. Doppler and Color Flow revealed trace mitral regurgitation. TRICUSPID VALVE Doppler and Color Flow revealed mild tricuspid regurgitation.The pulmonary artery systolic pressure i s estimated at 65 mmHg. There is moderate pulmonary hypertension. PULMONIC VALVE Doppler and Color Flow revealed no pulmonic valvular regurgitation. There is no pulmonic valvular dov nosis. GREAT VESSELS The aortic root is normal in size. The ascending aorta is normal in size. The IVC is normal in size a nd collapses >50% with inspiration. PERICARDIAL EFFUSION There is no evidence of significant pericardial effusion. Critical Notification Critical Value: No <Conclusion> The left ventricular systolic function is normal and the ejection fraction is within normal range. Th e Ejection Fraction is 65-70%. There is normal LV segmental wall motion. The right ventricle is mildly dilated. Doppler and Color Flow revealed mild tricuspid regurgitation.The pulmonary artery systolic pressure i s estimated at 65 mmHg. There is moderate pulmonary hypertension.
[2016-03-25] MEDS: IPRATRPIUM/ALBUTEROL 0.5/2.5MG 3 ML NEBU. NEB SCH ×4 (08:04→19:58)
[2016-03-25] MEDS: BUDESONIDE 0.5 MG/2 ML NEBU NEB SCH ×2 (08:05→19:58)
[2016-03-25] MEDS: PREDNISONE 20 MG TABLET PO SCH (08:40)
--- NOTE | 2016-03-25 08:53 | PDOC ---
PULMONARY PROGRESS NOTES Subjective sob, better. no cough, has back pain Vitals Vital Signs Date Time Temp Pulse Resp B/P Pulse Ox O2 Delivery O2 Flow Rate FiO2 03/25/16 08:09 94 Room Air 03/25/16 07:36 8 03/25/16 03:00 98.5 105 139/85 98.5 03/24/16 13:08 2.0 Comments ros as mentioned as above other sys otherwise neg. General: Alert, Oriented X4 HEENT: Other (nc at perrl, throat nose clear. ) Lungs: Crackles Cardiovascular: S2 Abdomen: Soft, Non-tender Neuro Exam: Alert, Oriented Extremities: Other (edema) Skin: Warm Labs Laboratory Tests Test 03/23/16 21:10 03/24/16 04:45 03/24/16 11:20 03/25/16 02:45 White Blood Count 3.4x10^3/uL (4.0-11.0) 2.3x10^3/uL (4.0-11.0) 4.8x10^3/uL (4.0-11.0) Red Blood Count 4.77x10^6/uL (4.30-5.70) 4.44x10^6/uL (4.30-5.70) 4.38x10^6/uL (4.30-5.70) Hemoglobin 14.8g/dL (13.0-17.5) 13.7g/dL (13.0-17.5) 13.5g/dL (13.0-17.5) Hematocrit 43.8% (39.0-53.0) 41.3% (39.0-53.0) 40.2% (39.0-53.0) Mean Corpuscular Volume 92fL (79-100) 93fL (79-100) 92fL (79-100) Mean Corpuscular Hemoglobin 31pg (25-35) 31pg (25-35) 31pg (25-35) Mean Corpuscular Hemoglobin Concent 34g/dL (31-37) 33g/dL (31-37) 34g/dL (31-37) Red Cell Distribution Width 13.5% (11.5-14.5) 13.6% (11.5-14.5) 13.4% (11.5-14.5) Platelet Count 165x10^3/uL (140-400) 140x10^3/uL (140-400) 145x10^3/uL (140-400) Neutrophils (%) (Auto) 67% (31-73) 58% (31-73) 76% (31-73) Lymphocytes (%) (Auto) 18% (24-48) 22% (24-48) 11% (24-48) Monocytes (%) (Auto) 13% (0-9) 17% (0-9) 12% (0-9) Eosinophils (%) (Auto) 2% (0-3) 3% (0-3) 0% (0-3) Basophils (%) (Auto) 1% (0-3) 1% (0-3) 0% (0-3) Neutrophils # (Auto) 2.3x10^3uL (1.8-7.7) 1.4x10^3uL (1.8-7.7) 3.6x10^3uL (1.8-7.7) Lymphocytes # (Auto) 0.6x10^3/uL (1.0-4.8) 0.5x10^3/uL (1.0-4.8) 0.5x10^3/uL (1.0-4.8) Monocytes # (Auto) 0.5x10^3/uL (0.0-1.1) 0.4x10^3/uL (0.0-1.1) 0.6x10^3/uL (0.0-1.1) Eosinophils # (Auto) 0.1x10^3/uL (0.0-0.7) 0.1x10^3/uL (0.0-0.7) 0.0x10^3/uL (0.0-0.7) Basophils # (Auto) 0.0x10^3/uL (0.0-0.2) 0.0x10^3/uL (0.0-0.2) 0.0x10^3/uL (0.0-0.2) Sodium Level 145mmol/L (136-145) 145mmol/L (136-145) 141mmol/L (136-145) Potassium Level 3.5mmol/L (3.5-5.1) 3.6mmol/L (3.5-5.1) 3.6mmol/L (3.5-5.1) Chloride Level 107mmol/L (98-107) 109mmol/L (98-107) 104mmol/L (98-107) Carbon Dioxide Level 31mmol/L (21-32) 32mmol/L (21-32) 30mmol/L (21-32) Anion Gap 7 (6-14) 4 (6-14) 7 (6-14) Blood Urea Nitrogen 17mg/dL (8-26) 15mg/dL (8-26) 16mg/dL (8-26) Creatinine 1.1mg/dL (0.7-1.3) 0.9mg/dL (0.7-1.3) 1.0mg/dL (0.7-1.3) Estimated GFR (Cockcroft-Gault) 83.8 105.6 93.5 Glucose Level 132mg/dL (70-99) 125mg/dL (70-99) 96mg/dL (70-99) Calcium Level 8.5mg/dL (8.5-10.1) 8.2mg/dL (8.5-10.1) 8.7mg/dL (8.5-10.1) Total Bilirubin 0.9mg/dL (0.2-1.0) 1.0mg/dL (0.2-1.0) Direct Bilirubin 0.3mg/dL (0.0-0.2) Aspartate Amino Transf (AST/SGOT) 34U/L (15-37) 34U/L (15-37) Alanine Aminotransferase (ALT/SGPT) 39U/L (16-63) 43U/L (16-63) Alkaline Phosphatase 70U/L (46-116) 52U/L (46-116) Troponin I Quantitative 0.025ng/mL (0.000-0.055) 0.028ng/mL (0.000-0.055) 0.030ng/mL (0.000-0.055) VW-Clm-Z-Type Natriuretic Peptide 46pg/mL (0-124) Total Protein 6.7g/dL (6.4-8.2) 6.1g/dL (6.4-8.2) Albumin 3.5g/dL (3.4-5.0) 3.3g/dL (3.4-5.0) Lipase 183U/L (73-393) BUN/Creatinine Ratio 16 (6-20) Albumin/Globulin Ratio 1.2 (1.0-1.7) Laboratory Tests Test 03/24/16 11:20 03/25/16 02:45 Troponin I Quantitative 0.030ng/mL (0.000-0.055) White Blood Count 4.8x10^3/uL (4.0-11.0) Red Blood Count 4.38x10^6/uL (4.30-5.70) Hemoglobin 13.5g/dL (13.0-17.5) Hematocrit 40.2% (39.0-53.0) Mean Corpuscular Volume 92fL (79-100) Mean Corpuscular Hemoglobin 31pg (25-35) Mean Corpuscular Hemoglobin Concent 34g/dL (31-37) Red Cell Distribution Width 13.4% (11.5-14.5) Platelet Count 145x10^3/uL (140-400) Neutrophils (%) (Auto) 76% (31-73) Lymphocytes (%) (Auto) 11% (24-48) Monocytes (%) (Auto) 12% (0-9) Eosinophils (%) (Auto) 0% (0-3) Basophils (%) (Auto) 0% (0-3) Neutrophils # (Auto) 3.6x10^3uL (1.8-7.7) Lymphocytes # (Auto) 0.5x10^3/uL (1.0-4.8) Monocytes # (Auto) 0.6x10^3/uL (0.0-1.1) Eosinophils # (Auto) 0.0x10^3/uL (0.0-0.7) Basophils # (Auto) 0.0x10^3/uL (0.0-0.2) Sodium Level 141mmol/L (136-145) Potassium Level 3.6mmol/L (3.5-5.1) Chloride Level 104mmol/L (98-107) Carbon Dioxide Level 30mmol/L (21-32) Anion Gap 7 (6-14) Blood Urea Nitrogen 16mg/dL (8-26) Creatinine 1.0mg/dL (0.7-1.3) Estimated GFR (Cockcroft-Gault) 93.5 BUN/Creatinine Ratio 16 (6-20) Glucose Level 96mg/dL (70-99) Calcium Level 8.7mg/dL (8.5-10.1) Total Bilirubin 1.0mg/dL (0.2-1.0) Aspartate Amino Transf (AST/SGOT) 34U/L (15-37) Alanine Aminotransferase (ALT/SGPT) 43U/L (16-63) Alkaline Phosphatase 52U/L (46-116) Total Protein 6.1g/dL (6.4-8.2) Albumin 3.3g/dL (3.4-5.0) Albumin/Globulin Ratio 1.2 (1.0-1.7) Medications Active Scripts Medications Dose Route/Sig Days Date Category Hydrochlorothiazide Tablet (Hydrochlorothiazide) 50 Mg Tablet 25 Mg PO DAILY 03/24/16 Reported Proair Hfa Inhaler (Albuterol Sulfate) 8.5 Gm Hfa.aer.ad 2 Puff INH Q4HRS PRN 02/09/16 Rx Prednisone 20 Mg Tablet 20 Mg PO DAILY 5 10/30/15 Rx Symbicort 160-4.5 Mcg Inhaler (Budesonide/Formoterol Fumarate) 10.2 Gm Hfa.aer.ad 2 Puff IH BID 09/21/15 Reported Spiriva (Tiotropium Ware) 18 Mcg Cap.w.dev 2 Inh IH DAILY 09/21/15 Reported Zocor (Simvastatin) 10 Mg Tablet 1 Tab PO QHS 09/21/[address] reviewed. 1. No acute process. 2. Pulmonary emphysema. There is a large left upper lobe apical posterior bulla displacing the remainder of the upper lobe and lingula anteriorly. 3. Pulmonary nodules largest measuring 4 millimeters. Management per the Fleischner guidelines may be of benefit. Impression . IMPRESSION: 1. Lower extremity edema in a patient who has history of deep vein thrombosis in the right leg 2 years ago. le doppler neg for dvt 2. Mild dyspnea on admission, currently asymptomatic and on room air saturations are 94%. 3. Underlying severe bullous lung disease in a patient who has no significant tobacco use. We will consider doing an alpha 1 antitrypsin level. 4. Mild leukopenia, could be viral induced. 5. abnl cxr and ct of chest. Plan . RECOMMENDATIONS: 1. Dopplers of the lower extremities, neg. 2. pain control 3. Continue bronchodilators, ics 4. Obtain an alpha 1 antitrypsin level. 5. repeat echocardiogram to rule out any LV dysfunction. Previous echo in 2016 is normal ejection fraction. 6. Monitor white cell count. discussed w pt and rn TAMAR RING MD Mar 25, 2016 08:53
[2016-03-25 08:58] VITALS: BP 127/75
[2016-03-25] MEDS ORDERED: NON FORMULARY ITEM (Tiotropium Bromide (Spiriva) 2 INH) IH SCH (09:00)
--- NOTE | 2016-03-25 11:32 | PDOC ---
PROGRESS NOTES Chief Complaint Chief Complaint 1. Shortness of breath 2. Dyspnea of exertion 3. Bilateral LE edema and pain 4. Hypoxia 5. COPD without significant smoking history 6. Hypertension 7. Hyperlipidemia History of Present Illness History of Present Illness Patient awake, alert, and oriented when seen this AM for evaluation. Pt states that he feeling "better". Pt denies any current CP and his SOA is getting better. Pt does have complaint of new onset back pain. All questions and concerns answered and addressed. Vitals Vitals Vital Signs Date Time Temp Pulse Resp B/P Pulse Ox O2 Delivery O2 Flow Rate FiO2 03/25/16 09:00 94 Nasal Cannula 2.0 03/25/16 08:58 100.0 112 20 127/75 100.0 Physical Exam General: Alert, Oriented X3, Cooperative, No acute distress Heart: Regular rate, Normal S1, Normal S2, Other (2/6 systolic murmur to LLS border) Lungs: Clear Abdomen: Soft, No tenderness Extremities: No clubbing, No cyanosis, Other (3+ to LLE and 2+ to RLE pitting) Skin: No breakdown, No significant lesion Labs LABS Laboratory Tests Test 03/25/16 02:45 White Blood Count 4.8x10^3/uL (4.0-11.0) Red Blood Count 4.38x10^6/uL (4.30-5.70) Hemoglobin 13.5g/dL (13.0-17.5) Hematocrit 40.2% (39.0-53.0) Mean Corpuscular Volume 92fL (79-100) Mean Corpuscular Hemoglobin 31pg (25-35) Mean Corpuscular Hemoglobin Concent 34g/dL (31-37) Red Cell Distribution Width 13.4% (11.5-14.5) Platelet Count 145x10^3/uL (140-400) Neutrophils (%) (Auto) 76% (31-73) Lymphocytes (%) (Auto) 11% (24-48) Monocytes (%) (Auto) 12% (0-9) Eosinophils (%) (Auto) 0% (0-3) Basophils (%) (Auto) 0% (0-3) Neutrophils # (Auto) 3.6x10^3uL (1.8-7.7) Lymphocytes # (Auto) 0.5x10^3/uL (1.0-4.8) Monocytes # (Auto) 0.6x10^3/uL (0.0-1.1) Eosinophils # (Auto) 0.0x10^3/uL (0.0-0.7) Basophils # (Auto) 0.0x10^3/uL (0.0-0.2) Sodium Level 141mmol/L (136-145) Potassium Level 3.6mmol/L (3.5-5.1) Chloride Level 104mmol/L (98-107) Carbon Dioxide Level 30mmol/L (21-32) Anion Gap 7 (6-14) Blood Urea Nitrogen 16mg/dL (8-26) Creatinine 1.0mg/dL (0.7-1.3) Estimated GFR (Cockcroft-Gault) 93.5 BUN/Creatinine Ratio 16 (6-20) Glucose Level 96mg/dL (70-99) Calcium Level 8.7mg/dL (8.5-10.1) Total Bilirubin 1.0mg/dL (0.2-1.0) Aspartate Amino Transf (AST/SGOT) 34U/L (15-37) Alanine Aminotransferase (ALT/SGPT) 43U/L (16-63) Alkaline Phosphatase 52U/L (46-116) Total Protein 6.1g/dL (6.4-8.2) Albumin 3.3g/dL (3.4-5.0) Albumin/Globulin Ratio 1.2 (1.0-1.7) Review of Systems Review of Systems Patient complaint of hunger Patient complaint of back pain Assessment and Plan Assessmemt and Plan Problems Medical Problems: (1) Hypoxemia Status: Acute (2) Hypoxia Status: Acute Assessment: 1. Shortness of breath 2. Dyspnea of exertion 3. Bilateral LE edema and pain 4. Hypoxia 5. COPD without significant smoking history 6. Hypertension 7. Hyperlipidemia Plan: Continue to monitor the patient per floor protocol Continue to monitor daily labs- CBC, CMP Daily PTOT Continue steroids Breathing treatments Appreciate pulmonary and Cardiology input and evaluation. MARILEE RN Problems: Comment Review of Relevant I have reviewed the following items franki (where applicable) has been applied. Labs Laboratory Tests Test 03/23/16 21:10 03/24/16 04:45 03/24/16 11:20 03/25/16 02:45 White Blood Count 3.4x10^3/uL (4.0-11.0) 2.3x10^3/uL (4.0-11.0) 4.8x10^3/uL (4.0-11.0) Red Blood Count 4.77x10^6/uL (4.30-5.70) 4.44x10^6/uL (4.30-5.70) 4.38x10^6/uL (4.30-5.70) Hemoglobin 14.8g/dL (13.0-17.5) 13.7g/dL (13.0-17.5) 13.5g/dL (13.0-17.5) Hematocrit 43.8% (39.0-53.0) 41.3% (39.0-53.0) 40.2% (39.0-53.0) Mean Corpuscular Volume 92fL (79-100) 93fL (79-100) 92fL (79-100) Mean Corpuscular Hemoglobin 31pg (25-35) 31pg (25-35) 31pg (25-35) Mean Corpuscular Hemoglobin Concent 34g/dL (31-37) 33g/dL (31-37) 34g/dL (31-37) Red Cell Distribution Width 13.5% (11.5-14.5) 13.6% (11.5-14.5) 13.4% (11.5-14.5) Platelet Count 165x10^3/uL (140-400) 140x10^3/uL (140-400) 145x10^3/uL (140-400) Neutrophils (%) (Auto) 67% (31-73) 58% (31-73) 76% (31-73) Lymphocytes (%) (Auto) 18% (24-48) 22% (24-48) 11% (24-48) Monocytes (%) (Auto) 13% (0-9) 17% (0-9) 12% (0-9) Eosinophils (%) (Auto) 2% (0-3) 3% (0-3) 0% (0-3) Basophils (%) (Auto) 1% (0-3) 1% (0-3) 0% (0-3) Neutrophils # (Auto) 2.3x10^3uL (1.8-7.7) 1.4x10^3uL (1.8-7.7) 3.6x10^3uL (1.8-7.7) Lymphocytes # (Auto) 0.6x10^3/uL (1.0-4.8) 0.5x10^3/uL (1.0-4.8) 0.5x10^3/uL (1.0-4.8) Monocytes # (Auto) 0.5x10^3/uL (0.0-1.1) 0.4x10^3/uL (0.0-1.1) 0.6x10^3/uL (0.0-1.1) Eosinophils # (Auto) 0.1x10^3/uL (0.0-0.7) 0.1x10^3/uL (0.0-0.7) 0.0x10^3/uL (0.0-0.7) Basophils # (Auto) 0.0x10^3/uL (0.0-0.2) 0.0x10^3/uL (0.0-0.2) 0.0x10^3/uL (0.0-0.2) Sodium Level 145mmol/L (136-145) 145mmol/L (136-145) 141mmol/L (136-145) Potassium Level 3.5mmol/L (3.5-5.1) 3.6mmol/L (3.5-5.1) 3.6mmol/L (3.5-5.1) Chloride Level 107mmol/L (98-107) 109mmol/L (98-107) 104mmol/L (98-107) Carbon Dioxide Level 31mmol/L (21-32) 32mmol/L (21-32) 30mmol/L (21-32) Anion Gap 7 (6-14) 4 (6-14) 7 (6-14) Blood Urea Nitrogen 17mg/dL (8-26) 15mg/dL (8-26) 16mg/dL (8-26) Creatinine 1.1mg/dL (0.7-1.3) 0.9mg/dL (0.7-1.3) 1.0mg/dL (0.7-1.3) Estimated GFR (Cockcroft-Gault) 83.8 105.6 93.5 Glucose Level 132mg/dL (70-99) 125mg/dL (70-99) 96mg/dL (70-99) Calcium Level 8.5mg/dL (8.5-10.1) 8.2mg/dL (8.5-10.1) 8.7mg/dL (8.5-10.1) Total Bilirubin 0.9mg/dL (0.2-1.0) 1.0mg/dL (0.2-1.0) Direct Bilirubin 0.3mg/dL (0.0-0.2) Aspartate Amino Transf (AST/SGOT) 34U/L (15-37) 34U/L (15-37) Alanine Aminotransferase (ALT/SGPT) 39U/L (16-63) 43U/L (16-63) Alkaline Phosphatase 70U/L (46-116) 52U/L (46-116) Troponin I Quantitative 0.025ng/mL (0.000-0.055) 0.028ng/mL (0.000-0.055) 0.030ng/mL (0.000-0.055) XN-Ffd-F-Type Natriuretic Peptide 46pg/mL (0-124) Total Protein 6.7g/dL (6.4-8.2) 6.1g/dL (6.4-8.2) Albumin 3.5g/dL (3.4-5.0) 3.3g/dL (3.4-5.0) Lipase 183U/L (73-393) BUN/Creatinine Ratio 16 (6-20) Albumin/Globulin Ratio 1.2 (1.0-1.7) Laboratory Tests Test 03/25/16 02:45 White Blood Count 4.8x10^3/uL (4.0-11.0) Red Blood Count 4.38x10^6/uL (4.30-5.70) Hemoglobin 13.5g/dL (13.0-17.5) Hematocrit 40.2% (39.0-53.0) Mean Corpuscular Volume 92fL (79-100) Mean Corpuscular Hemoglobin 31pg (25-35) Mean Corpuscular Hemoglobin Concent 34g/dL (31-37) Red Cell Distribution Width 13.4% (11.5-14.5) Platelet Count 145x10^3/uL (140-400) Neutrophils (%) (Auto) 76% (31-73) Lymphocytes (%) (Auto) 11% (24-48) Monocytes (%) (Auto) 12% (0-9) Eosinophils (%) (Auto) 0% (0-3) Basophils (%) (Auto) 0% (0-3) Neutrophils # (Auto) 3.6x10^3uL (1.8-7.7) Lymphocytes # (Auto) 0.5x10^3/uL (1.0-4.8) Monocytes # (Auto) 0.6x10^3/uL (0.0-1.1) Eosinophils # (Auto) 0.0x10^3/uL (0.0-0.7) Basophils # (Auto) 0.0x10^3/uL (0.0-0.2) Sodium Level 141mmol/L (136-145) Potassium Level 3.6mmol/L (3.5-5.1) Chloride Level 104mmol/L (98-107) Carbon Dioxide Level 30mmol/L (21-32) Anion Gap 7 (6-14) Blood Urea Nitrogen 16mg/dL (8-26) Creatinine 1.0mg/dL (0.7-1.3) Estimated GFR (Cockcroft-Gault) 93.5 BUN/Creatinine Ratio 16 (6-20) Glucose Level 96mg/dL (70-99) Calcium Level 8.7mg/dL (8.5-10.1) Total Bilirubin 1.0mg/dL (0.2-1.0) Aspartate Amino Transf (AST/SGOT) 34U/L (15-37) Alanine Aminotransferase (ALT/SGPT) 43U/L (16-63) Alkaline Phosphatase 52U/L (46-116) Total Protein 6.1g/dL (6.4-8.2) Albumin 3.3g/dL (3.4-5.0) Albumin/Globulin Ratio 1.2 (1.0-1.7) Medications Current Medications Ondansetron HCl (Zofran) 4 mg PRN Q8HRS PRN IV NAUSEA/VOMITING; Start 03/23/16 at 23:15; Stop 03/24/16 at 23:14; Status DC Morphine Sulfate 2 mg PRN Q2HR PRN IV PAIN Last administered on 03/24/16 16:41 ; Start 03/23/16 at 23:15; Stop 03/24/16 at 16:43; Status DC Albuterol/ Ipratropium (Duoneb) 3 ml RTQID NEB ; Start 03/24/16 at 08:00; Stop 03/24/16 at 09:02; Status DC Albuterol/ Ipratropium (Duoneb) 3 ml 1X ONCE NEB Last administered on 23:42; Start 03/23/16 at 23:45; Stop 03/23/16 at 23:46; Status DC Albuterol/ Ipratropium (Duoneb) 3 ml Q4HRS W/A NEB Last administered on 08:04; Start 03/24/16 at 10:00 Budesonide (Pulmicort) 0.5 mg RTBID NEB Last administered on 03/25/16 08:05; Start 03/24/16 at 09:00 Prednisone (Prednisone) 40 mg DAILY PO ; Start 03/24/16 at 09:00; Stop 03/24/16 at 09:04; Status DC Simvastatin (Zocor) 10 mg QHS PO Last administered on 03/24/16 21:55; Start at 21:00 Non-Formulary Medication 2 inh DAILY IH ; Start 03/25/16 at 09:00; Stop at 09:00; Status DC Prednisone (Prednisone) 60 mg DAILY PO Last administered on 03/25/16 08:40; Start 03/24/16 at 10:00 Morphine Sulfate 4 mg PRN Q2HR PRN IV PAIN; Start 03/24/16 at 16:45 Oxycodone/ Acetaminophen (Percocet 7.5/ 325) 1 tab PRN Q4HRS PRN PO PAIN Last administered on 03/25/16 06:36; Start 03/24/16 at 16:45 Diphenhydramine HCl (Benadryl) 25 mg 1X ONCE PO Last administered on t 21:55; Start 03/24/16 at 22:00; Stop 03/24/16 at 22:01; Status DC Active Scripts Active Proair Hfa Inhaler (Albuterol Sulfate) 8.5 Gm Hfa.aer.ad 2 Puff INH Q4HRS PRN Prednisone 20 Mg Tablet 20 Mg PO DAILY 5 Days Reported Hydrochlorothiazide Tablet (Hydrochlorothiazide) 50 Mg Tablet 25 Mg PO DAILY Symbicort 160-4.5 Mcg Inhaler (Budesonide/Formoterol Fumarate) 10.2 Gm Hfa.aer.ad 2 Puff IH BID Spiriva (Tiotropium [place]) 18 Mcg Cap.w.dev 2 Inh IH DAILY Zocor (Simvastatin) 10 Mg Tablet 1 Tab PO QHS Vitals/I & O Vital Sign - Last 24 Hours 03/24/16 03/24/16 03/24/16 03/24/16 13:08 15:43 16:56 17:58 Temp 97.7 97.7 Pulse 72 Resp 21 B/P 132/87 Pulse Ox 96 90 O2 Delivery Nasal Cannula Room Air Room Air Room Air O2 Flow Rate 2.0 03/24/16 03/24/16 03/24/16 03/24/16 19:00 20:00 20:37 21:55 Temp 98.6 98.6 Pulse 95 Resp 21 B/P 126/73 Pulse Ox 91 89 O2 Delivery Room Air Room Air Room Air Room Air 03/24/16 03/25/16 03/25/16 03/25/16 23:00 03:00 06:36 07:36 Temp 98.5 98.5 98.5 98.5 Pulse 105 105 Resp 20 20 8 B/P 139/85 139/85 Pulse Ox 100 100 O2 Delivery Room Air Room Air Room Air Room Air 03/25/16 03/25/16 03/25/16 03/25/16 08:00 08:06 08:09 08:58 Temp 100.0 100.0 Pulse 112 Resp 20 B/P 127/75 Pulse Ox 94 94 85 O2 Delivery Room Air Room Air Room Air Room Air 03/25/16 09:00 Pulse Ox 94 O2 Delivery Nasal Cannula O2 Flow Rate 2.0 Intake and Output 03/24/16 03/24/16 03/25/16 15:00 23:00 07:00 Intake Total 240 ml Balance 240 ml TAMMY MARKS III DO Mar 25, 2016 11:32
[2016-03-25 11:50] VITALS: BP 117/74
[2016-03-25 15:45] VITALS: BP 150/83
[2016-03-25] MEDS: HYDROCHLOROTHIAZIDE 25 MG TABLET PO SCH (16:09)
[2016-03-25] MEDS ORDERED: HYDROCHLOROTHIAZIDE 25 MG TABLET PO SCH (16:15)
[2016-03-25 19:00] VITALS: BP 145/92
[2016-03-25] MEDS: SIMVASTATIN 10 MG TABLET PO SCH (22:19)
[2016-03-25 23:00] VITALS: BP 128/76
[2016-03-26 03:00] VITALS: BP 123/80
[2016-03-26] MEDS: IPRATRPIUM/ALBUTEROL 0.5/2.5MG 3 ML NEBU. NEB SCH ×5 (06:00→19:34)
[2016-03-26 06:25] LABS: BASO % 0 % (0-3); EOS % 0 % (0-3); HEMOGLOBIN 13.9 g/dL (13.0-17.5); LYMPH # 0.6 x10^3/uL (1.0-4.8); LYMPH % 11 % (24-48); MEAN CORPUSCULAR HEMOGLOBIN 31 pg (25-35); MEAN CORPUSCULAR HGB CONC 34 g/dL (31-37); MEAN CORPUSCULAR VOLUME 92 fL (79-100); MONO % 12 % (0-9); NEUT % 76 % (31-73); PLATELET COUNT 139 x10^3/uL (140-400); RED BLOOD COUNT 4.47 x10^6/uL (4.30-5.70); RED CELL DISTRIBUTION WIDTH 13.5 % (11.5-14.5); WHITE BLOOD COUNT 5.4 x10^3/uL (4.0-11.0)
[2016-03-26 07:00] VITALS: BP 143/88
[2016-03-26 07:01] LABS: ALBUMIN 3.4 g/dL (3.4-5.0); ALBUMIN/GLOBULIN RATIO 1.1 (1.0-1.7); CALCIUM 9.2 mg/dL (8.5-10.1); GFR 93.5; POTASSIUM 3.7 mmol/L (3.5-5.1); TOTAL PROTEIN 6.4 g/dL (6.4-8.2)
[2016-03-26] MEDS: BUDESONIDE 0.5 MG/2 ML NEBU NEB SCH ×2 (07:43→19:34)
--- NOTE | 2016-03-26 08:38 | PDOC ---
PULMONARY PROGRESS NOTES Subjective sob, better. no cough, has back pain Vitals Vital Signs Date Time Temp Pulse Resp B/P Pulse Ox O2 Delivery O2 Flow Rate FiO2 03/26/16 07:44 97 Nasal Cannula 2.0 03/26/16 03:00 97.9 80 20 123/80 97.9 Comments ros as mentioned as above other sys otherwise neg. General: Alert, Oriented X4 HEENT: Other (nc at perrl, throat nose clear. ) Lungs: Crackles Cardiovascular: S2 Abdomen: Soft, Non-tender Neuro Exam: Alert, Oriented Extremities: Other (edema) Skin: Warm Labs Laboratory Tests Test 03/24/16 11:20 03/25/16 02:45 03/26/16 06:00 Troponin I Quantitative 0.030ng/mL (0.000-0.055) White Blood Count 4.8x10^3/uL (4.0-11.0) 5.4x10^3/uL (4.0-11.0) Red Blood Count 4.38x10^6/uL (4.30-5.70) 4.47x10^6/uL (4.30-5.70) Hemoglobin 13.5g/dL (13.0-17.5) 13.9g/dL (13.0-17.5) Hematocrit 40.2% (39.0-53.0) 41.0% (39.0-53.0) Mean Corpuscular Volume 92fL (79-100) 92fL (79-100) Mean Corpuscular Hemoglobin 31pg (25-35) 31pg (25-35) Mean Corpuscular Hemoglobin Concent 34g/dL (31-37) 34g/dL (31-37) Red Cell Distribution Width 13.4% (11.5-14.5) 13.5% (11.5-14.5) Platelet Count 145x10^3/uL (140-400) 139x10^3/uL (140-400) Neutrophils (%) (Auto) 76% (31-73) 76% (31-73) Lymphocytes (%) (Auto) 11% (24-48) 11% (24-48) Monocytes (%) (Auto) 12% (0-9) 12% (0-9) Eosinophils (%) (Auto) 0% (0-3) 0% (0-3) Basophils (%) (Auto) 0% (0-3) 0% (0-3) Neutrophils # (Auto) 3.6x10^3uL (1.8-7.7) 4.1x10^3uL (1.8-7.7) Lymphocytes # (Auto) 0.5x10^3/uL (1.0-4.8) 0.6x10^3/uL (1.0-4.8) Monocytes # (Auto) 0.6x10^3/uL (0.0-1.1) 0.6x10^3/uL (0.0-1.1) Eosinophils # (Auto) 0.0x10^3/uL (0.0-0.7) 0.0x10^3/uL (0.0-0.7) Basophils # (Auto) 0.0x10^3/uL (0.0-0.2) 0.0x10^3/uL (0.0-0.2) Sodium Level 141mmol/L (136-145) 141mmol/L (136-145) Potassium Level 3.6mmol/L (3.5-5.1) 3.7mmol/L (3.5-5.1) Chloride Level 104mmol/L (98-107) 103mmol/L (98-107) Carbon Dioxide Level 30mmol/L (21-32) 32mmol/L (21-32) Anion Gap 7 (6-14) 6 (6-14) Blood Urea Nitrogen 16mg/dL (8-26) 17mg/dL (8-26) Creatinine 1.0mg/dL (0.7-1.3) 1.0mg/dL (0.7-1.3) Estimated GFR (Cockcroft-Gault) 93.5 93.5 BUN/Creatinine Ratio 16 (6-20) 17 (6-20) Glucose Level 96mg/dL (70-99) 89mg/dL (70-99) Calcium Level 8.7mg/dL (8.5-10.1) 9.2mg/dL (8.5-10.1) Total Bilirubin 1.0mg/dL (0.2-1.0) 1.0mg/dL (0.2-1.0) Aspartate Amino Transf (AST/SGOT) 34U/L (15-37) 38U/L (15-37) Alanine Aminotransferase (ALT/SGPT) 43U/L (16-63) 39U/L (16-63) Alkaline Phosphatase 52U/L (46-116) 53U/L (46-116) Total Protein 6.1g/dL (6.4-8.2) 6.4g/dL (6.4-8.2) Albumin 3.3g/dL (3.4-5.0) 3.4g/dL (3.4-5.0) Albumin/Globulin Ratio 1.2 (1.0-1.7) 1.1 (1.0-1.7) Laboratory Tests Test 03/26/16 06:00 White Blood Count 5.4x10^3/uL (4.0-11.0) Red Blood Count 4.47x10^6/uL (4.30-5.70) Hemoglobin 13.9g/dL (13.0-17.5) Hematocrit 41.0% (39.0-53.0) Mean Corpuscular Volume 92fL (79-100) Mean Corpuscular Hemoglobin 31pg (25-35) Mean Corpuscular Hemoglobin Concent 34g/dL (31-37) Red Cell Distribution Width 13.5% (11.5-14.5) Platelet Count 139x10^3/uL (140-400) Neutrophils (%) (Auto) 76% (31-73) Lymphocytes (%) (Auto) 11% (24-48) Monocytes (%) (Auto) 12% (0-9) Eosinophils (%) (Auto) 0% (0-3) Basophils (%) (Auto) 0% (0-3) Neutrophils # (Auto) 4.1x10^3uL (1.8-7.7) Lymphocytes # (Auto) 0.6x10^3/uL (1.0-4.8) Monocytes # (Auto) 0.6x10^3/uL (0.0-1.1) Eosinophils # (Auto) 0.0x10^3/uL (0.0-0.7) Basophils # (Auto) 0.0x10^3/uL (0.0-0.2) Sodium Level 141mmol/L (136-145) Potassium Level 3.7mmol/L (3.5-5.1) Chloride Level 103mmol/L (98-107) Carbon Dioxide Level 32mmol/L (21-32) Anion Gap 6 (6-14) Blood Urea Nitrogen 17mg/dL (8-26) Creatinine 1.0mg/dL (0.7-1.3) Estimated GFR (Cockcroft-Gault) 93.5 BUN/Creatinine Ratio 17 (6-20) Glucose Level 89mg/dL (70-99) Calcium Level 9.2mg/dL (8.5-10.1) Total Bilirubin 1.0mg/dL (0.2-1.0) Aspartate Amino Transf (AST/SGOT) 38U/L (15-37) Alanine Aminotransferase (ALT/SGPT) 39U/L (16-63) Alkaline Phosphatase 53U/L (46-116) Total Protein 6.4g/dL (6.4-8.2) Albumin 3.4g/dL (3.4-5.0) Albumin/Globulin Ratio 1.1 (1.0-1.7) Medications Active Scripts Medications Dose Route/Sig Days Date Category Hydrochlorothiazide Tablet (Hydrochlorothiazide) 50 Mg Tablet 25 Mg PO DAILY 03/24/16 Reported Proair Hfa Inhaler (Albuterol Sulfate) 8.5 Gm Hfa.aer.ad 2 Puff INH Q4HRS PRN 02/09/16 Rx Prednisone 20 Mg Tablet 20 Mg PO DAILY 5 10/30/15 Rx Symbicort 160-4.5 Mcg Inhaler (Budesonide/Formoterol Fumarate) 10.2 Gm Hfa.aer.ad 2 Puff IH BID 09/21/15 Reported Spiriva (Tiotropium [place]) 18 Mcg Cap.w.dev 2 Inh IH DAILY 09/21/15 Reported Zocor (Simvastatin) 10 Mg Tablet 1 Tab PO QHS 09/21/[address] reviewed. 1. No acute process. 2. Pulmonary emphysema. There is a large left upper lobe apical posterior bulla displacing the remainder of the upper lobe and lingula anteriorly. 3. Pulmonary nodules largest measuring 4 millimeters. Management per the Fleischner guidelines may be of benefit. echo, The left ventricular systolic function is normal and the ejection fraction is within normal range. The Ejection Fraction is 65-70%. There is normal LV segmental wall motion. The right ventricle is mildly dilated. Doppler and Color Flow revealed mild tricuspid regurgitation.The pulmonary artery systolic pressure is estimated at 65 mmHg. There is moderate pulmonary hypertension. Impression . IMPRESSION: 1. Lower extremity edema in a patient who has history of deep vein thrombosis in the right leg 2 years ago. le doppler neg for dvt 2. Mild dyspnea on admission, currently asymptomatic 3. Underlying severe bullous lung disease in a patient who has no significant tobacco use. We will consider doing an alpha 1 antitrypsin level. 4. Mild leukopenia, could be viral induced. 5. abnl cxr and ct of chest. 6. mod pulm htn, ? etiology, could be severe emphysema, hypoxemia, ? pe, ? alexey, vs others. Plan . RECOMMENDATIONS: 1. Dopplers of the lower extremities, neg. 2. pain control 3. Continue bronchodilators, ics 4. Obtain an alpha 1 antitrypsin level. 5. repeat echocardiogram to rule out any LV dysfunction. Previous echo in 2016 is normal ejection fraction. 6. Monitor white cell count. 7. need abbasi for pulm htn, ct done not cta, will do v/q scan to ro pe. check abg discussed w pt and TAMAR Blue MD Mar 26, 2016 08:37
[2016-03-26] MEDS: HYDROCHLOROTHIAZIDE 25 MG TABLET PO SCH (08:52)
[2016-03-26] MEDS: PREDNISONE 20 MG TABLET PO SCH (08:52)
[2016-03-26 11:00] VITALS: BP 140/73
--- NOTE | 2016-03-26 12:46 | RAD ---
Two view chest History:Shortness of air . PA and lateral views of the chest are submitted. Comparison: None Findings: There is no significant infiltrate, pleural effusion, or pneumothorax. The pericardial cardiac silhouette is within normal limits in size. The trachea is in the midline. No acute osseous abnormality is identified. There is emphysema. Impression: There is emphysema. There is no infiltrate.
--- NOTE | 2016-03-26 12:54 | RAD ---
LUNG VENT/PERFUSION SCAN(VQ) History:Hypoxia, COPD Comparison: Chest radiographs the same day, no previous similar exam available Findings:Patient could not tolerate ventilation portion of exam. Patient was injected with 5.5 mCi of technetium 99 MAA, perfusion images acquired. There is a large perfusion defect of the left upper lobe, smaller defects on the right in region of the superior right lower lobe and also of the superior lingual left upper lobe. Impression: 1.Ventilation images could not be obtained to accurately classify probability for pulmonary embolism. There are bilateral perfusion defects most notable of the left upper lobe although the patient has emphysema.
[2016-03-26 15:00] VITALS: BP 129/80
--- NOTE | 2016-03-26 15:22 | PDOC ---
PROGRESS NOTES Chief Complaint Chief Complaint 1. Shortness of breath 2. Dyspnea of exertion 3. Bilateral LE edema and pain 4. Hypoxia 5. COPD without significant smoking history 6. Hypertension 7. Hyperlipidemia History of Present Illness History of Present Illness Patient awake, alert, and oriented when seen this AM for evaluation. Pt states that he feeling "better". Pt denies any current CP and his SOA is getting better. Pt does have complaint of new onset back pain. All questions and concerns answered and addressed. Vitals Vitals Vital Signs Date Time Temp Pulse Resp B/P Pulse Ox O2 Delivery O2 Flow Rate FiO2 03/26/16 11:00 97.9 79 18 140/73 97 Nasal Cannula 2.0 97.9 Physical Exam General: Alert, Oriented X3, Cooperative, No acute distress Heart: Regular rate, Normal S1, Normal S2, Other (2/6 systolic murmur to LLS border) Lungs: Crackles Abdomen: Soft, No tenderness Extremities: No clubbing, No cyanosis, Other (3+ to LLE and 2+ to RLE pitting) Skin: No rashes, No breakdown, No significant lesion Labs LABS Laboratory Tests Test 03/26/16 06:00 White Blood Count 5.4x10^3/uL (4.0-11.0) Red Blood Count 4.47x10^6/uL (4.30-5.70) Hemoglobin 13.9g/dL (13.0-17.5) Hematocrit 41.0% (39.0-53.0) Mean Corpuscular Volume 92fL (79-100) Mean Corpuscular Hemoglobin 31pg (25-35) Mean Corpuscular Hemoglobin Concent 34g/dL (31-37) Red Cell Distribution Width 13.5% (11.5-14.5) Platelet Count 139x10^3/uL (140-400) Neutrophils (%) (Auto) 76% (31-73) Lymphocytes (%) (Auto) 11% (24-48) Monocytes (%) (Auto) 12% (0-9) Eosinophils (%) (Auto) 0% (0-3) Basophils (%) (Auto) 0% (0-3) Neutrophils # (Auto) 4.1x10^3uL (1.8-7.7) Lymphocytes # (Auto) 0.6x10^3/uL (1.0-4.8) Monocytes # (Auto) 0.6x10^3/uL (0.0-1.1) Eosinophils # (Auto) 0.0x10^3/uL (0.0-0.7) Basophils # (Auto) 0.0x10^3/uL (0.0-0.2) Sodium Level 141mmol/L (136-145) Potassium Level 3.7mmol/L (3.5-5.1) Chloride Level 103mmol/L (98-107) Carbon Dioxide Level 32mmol/L (21-32) Anion Gap 6 (6-14) Blood Urea Nitrogen 17mg/dL (8-26) Creatinine 1.0mg/dL (0.7-1.3) Estimated GFR (Cockcroft-Gault) 93.5 BUN/Creatinine Ratio 17 (6-20) Glucose Level 89mg/dL (70-99) Calcium Level 9.2mg/dL (8.5-10.1) Total Bilirubin 1.0mg/dL (0.2-1.0) Aspartate Amino Transf (AST/SGOT) 38U/L (15-37) Alanine Aminotransferase (ALT/SGPT) 39U/L (16-63) Alkaline Phosphatase 53U/L (46-116) Total Protein 6.4g/dL (6.4-8.2) Albumin 3.4g/dL (3.4-5.0) Albumin/Globulin Ratio 1.1 (1.0-1.7) Review of Systems Review of Systems Patient complaint of hunger Patient complaint of fatigue Assessment and Plan Assessmemt and Plan Problems Medical Problems: (1) Hypoxemia Status: Acute (2) Hypoxia Status: Acute Assessment: 1. Shortness of breath 2. Dyspnea of exertion 3. Bilateral LE edema and pain 4. Hypoxia 5. COPD without significant smoking history 6. Hypertension 7. Hyperlipidemia Plan: Continue to monitor the patient per floor protocol Daily labs- CBC, CMP, BUN, Cr Add Miralax PRN for constipation Recheck liver function tests Continue breathing treatments PRN Check Alpha One Antitrypsin level Await results of VQ scan Appreciate Pulm and Cards input and recommendations MARILEE RN Problems: Comment Review of Relevant I have reviewed the following items franki (where applicable) has been applied. Labs Laboratory Tests Test 03/25/16 02:45 03/26/16 06:00 White Blood Count 4.8x10^3/uL (4.0-11.0) 5.4x10^3/uL (4.0-11.0) Red Blood Count 4.38x10^6/uL (4.30-5.70) 4.47x10^6/uL (4.30-5.70) Hemoglobin 13.5g/dL (13.0-17.5) 13.9g/dL (13.0-17.5) Hematocrit 40.2% (39.0-53.0) 41.0% (39.0-53.0) Mean Corpuscular Volume 92fL (79-100) 92fL (79-100) Mean Corpuscular Hemoglobin 31pg (25-35) 31pg (25-35) Mean Corpuscular Hemoglobin Concent 34g/dL (31-37) 34g/dL (31-37) Red Cell Distribution Width 13.4% (11.5-14.5) 13.5% (11.5-14.5) Platelet Count 145x10^3/uL (140-400) 139x10^3/uL (140-400) Neutrophils (%) (Auto) 76% (31-73) 76% (31-73) Lymphocytes (%) (Auto) 11% (24-48) 11% (24-48) Monocytes (%) (Auto) 12% (0-9) 12% (0-9) Eosinophils (%) (Auto) 0% (0-3) 0% (0-3) Basophils (%) (Auto) 0% (0-3) 0% (0-3) Neutrophils # (Auto) 3.6x10^3uL (1.8-7.7) 4.1x10^3uL (1.8-7.7) Lymphocytes # (Auto) 0.5x10^3/uL (1.0-4.8) 0.6x10^3/uL (1.0-4.8) Monocytes # (Auto) 0.6x10^3/uL (0.0-1.1) 0.6x10^3/uL (0.0-1.1) Eosinophils # (Auto) 0.0x10^3/uL (0.0-0.7) 0.0x10^3/uL (0.0-0.7) Basophils # (Auto) 0.0x10^3/uL (0.0-0.2) 0.0x10^3/uL (0.0-0.2) Sodium Level 141mmol/L (136-145) 141mmol/L (136-145) Potassium Level 3.6mmol/L (3.5-5.1) 3.7mmol/L (3.5-5.1) Chloride Level 104mmol/L (98-107) 103mmol/L (98-107) Carbon Dioxide Level 30mmol/L (21-32) 32mmol/L (21-32) Anion Gap 7 (6-14) 6 (6-14) Blood Urea Nitrogen 16mg/dL (8-26) 17mg/dL (8-26) Creatinine 1.0mg/dL (0.7-1.3) 1.0mg/dL (0.7-1.3) Estimated GFR (Cockcroft-Gault) 93.5 93.5 BUN/Creatinine Ratio 16 (6-20) 17 (6-20) Glucose Level 96mg/dL (70-99) 89mg/dL (70-99) Calcium Level 8.7mg/dL (8.5-10.1) 9.2mg/dL (8.5-10.1) Total Bilirubin 1.0mg/dL (0.2-1.0) 1.0mg/dL (0.2-1.0) Aspartate Amino Transf (AST/SGOT) 34U/L (15-37) 38U/L (15-37) Alanine Aminotransferase (ALT/SGPT) 43U/L (16-63) 39U/L (16-63) Alkaline Phosphatase 52U/L (46-116) 53U/L (46-116) Total Protein 6.1g/dL (6.4-8.2) 6.4g/dL (6.4-8.2) Albumin 3.3g/dL (3.4-5.0) 3.4g/dL (3.4-5.0) Albumin/Globulin Ratio 1.2 (1.0-1.7) 1.1 (1.0-1.7) Laboratory Tests Test 03/26/16 06:00 White Blood Count 5.4x10^3/uL (4.0-11.0) Red Blood Count 4.47x10^6/uL (4.30-5.70) Hemoglobin 13.9g/dL (13.0-17.5) Hematocrit 41.0% (39.0-53.0) Mean Corpuscular Volume 92fL (79-100) Mean Corpuscular Hemoglobin 31pg (25-35) Mean Corpuscular Hemoglobin Concent 34g/dL (31-37) Red Cell Distribution Width 13.5% (11.5-14.5) Platelet Count 139x10^3/uL (140-400) Neutrophils (%) (Auto) 76% (31-73) Lymphocytes (%) (Auto) 11% (24-48) Monocytes (%) (Auto) 12% (0-9) Eosinophils (%) (Auto) 0% (0-3) Basophils (%) (Auto) 0% (0-3) Neutrophils # (Auto) 4.1x10^3uL (1.8-7.7) Lymphocytes # (Auto) 0.6x10^3/uL (1.0-4.8) Monocytes # (Auto) 0.6x10^3/uL (0.0-1.1) Eosinophils # (Auto) 0.0x10^3/uL (0.0-0.7) Basophils # (Auto) 0.0x10^3/uL (0.0-0.2) Sodium Level 141mmol/L (136-145) Potassium Level 3.7mmol/L (3.5-5.1) Chloride Level 103mmol/L (98-107) Carbon Dioxide Level 32mmol/L (21-32) Anion Gap 6 (6-14) Blood Urea Nitrogen 17mg/dL (8-26) Creatinine 1.0mg/dL (0.7-1.3) Estimated GFR (Cockcroft-Gault) 93.5 BUN/Creatinine Ratio 17 (6-20) Glucose Level 89mg/dL (70-99) Calcium Level 9.2mg/dL (8.5-10.1) Total Bilirubin 1.0mg/dL (0.2-1.0) Aspartate Amino Transf (AST/SGOT) 38U/L (15-37) Alanine Aminotransferase (ALT/SGPT) 39U/L (16-63) Alkaline Phosphatase 53U/L (46-116) Total Protein 6.4g/dL (6.4-8.2) Albumin 3.4g/dL (3.4-5.0) Albumin/Globulin Ratio 1.1 (1.0-1.7) Medications Current Medications Ondansetron HCl (Zofran) 4 mg PRN Q8HRS PRN IV NAUSEA/VOMITING; Start 03/23/16 at 23:15; Stop 03/24/16 at 23:14; Status DC Morphine Sulfate 2 mg PRN Q2HR PRN IV PAIN Last administered on 03/24/16 16:41 ; Start 03/23/16 at 23:15; Stop 03/24/16 at 16:43; Status DC Albuterol/ Ipratropium (Duoneb) 3 ml RTQID NEB ; Start 03/24/16 at 08:00; Stop 03/24/16 at 09:02; Status DC Albuterol/ Ipratropium (Duoneb) 3 ml 1X ONCE NEB Last administered on 23:42; Start 03/23/16 at 23:45; Stop 03/23/16 at 23:46; Status DC Albuterol/ Ipratropium (Duoneb) 3 ml Q4HRS W/A NEB Last administered on 06:00; Start 03/24/16 at 10:00 Budesonide (Pulmicort) 0.5 mg RTBID NEB Last administered on 03/26/16 07:43; Start 03/24/16 at 09:00 Prednisone (Prednisone) 40 mg DAILY PO ; Start 03/24/16 at 09:00; Stop 03/24/16 at 09:04; Status DC Simvastatin (Zocor) 10 mg QHS PO Last administered on 03/25/16 22:19; Start at 21:00 Non-Formulary Medication 2 inh DAILY IH ; Start 03/25/16 at 09:00; Stop at 09:00; Status DC Prednisone (Prednisone) 60 mg DAILY PO Last administered on 03/26/16 08:52; Start 03/24/16 at 10:00 Morphine Sulfate 4 mg PRN Q2HR PRN IV PAIN; Start 03/24/16 at 16:45 Oxycodone/ Acetaminophen (Percocet 7.5/ 325) 1 tab PRN Q4HRS PRN PO PAIN Last administered on 03/25/16 22:18; Start 03/24/16 at 16:45 Diphenhydramine HCl (Benadryl) 25 mg 1X ONCE PO Last administered on 21:55; Start 03/24/16 at 22:00; Stop 03/24/16 at 22:01; Status DC Hydrochlorothiazide (Hydrodiuril) 50 mg DAILY PO ; Start 03/25/16 at 16:15; Stop 03/25/16 at 16:15; Status DC Hydrochlorothiazide (Hydrodiuril) 25 mg DAILY PO Last administered on 08:52; Start 03/25/16 at 16:15 Active Scripts Active Proair Hfa Inhaler (Albuterol Sulfate) 8.5 Gm Hfa.aer.ad 2 Puff INH Q4HRS PRN Prednisone 20 Mg Tablet 20 Mg PO DAILY 5 Days Reported Hydrochlorothiazide Tablet (Hydrochlorothiazide) 50 Mg Tablet 25 Mg PO DAILY Symbicort 160-4.5 Mcg Inhaler (Budesonide/Formoterol Fumarate) 10.2 Gm Hfa.aer.ad 2 Puff IH BID Spiriva (Tiotropium [place]) 18 Mcg Cap.w.dev 2 Inh IH DAILY Zocor (Simvastatin) 10 Mg Tablet 1 Tab PO QHS Vitals/I & O Vital Sign - Last 24 Hours 03/25/16 03/25/16 03/25/16 03/25/16 15:45 16:49 19:00 19:58 Temp 97.7 98.1 97.7 98.1 Pulse 95 82 Resp 20 20 B/P 150/83 145/92 Pulse Ox 90 94 96 O2 Delivery Room Air Room Air Room Air Room Air 03/25/16 03/25/16 03/25/16 03/25/16 20:00 22:18 23:00 23:18 Temp 99.7 99.7 Pulse 81 Resp 20 B/P 128/76 Pulse Ox 94 93 O2 Delivery Room Air Room Air Room Air Room Air 03/26/16 03/26/16 03/26/16 03/26/16 03:00 07:00 07:44 08:00 Temp 97.9 97.0 97.9 97.0 Pulse 80 74 Resp 20 18 B/P 123/80 143/88 Pulse Ox 96 97 97 O2 Delivery Room Air Nasal Cannula Nasal Cannula Nasal Cannula O2 Flow Rate 2.0 2.0 2.0 03/26/16 11:00 Temp 97.9 97.9 Pulse 79 Resp 18 B/P 140/73 Pulse Ox 97 O2 Delivery Nasal Cannula O2 Flow Rate 2.0 Intake and Output 03/25/16 03/25/16 03/26/16 15:00 23:00 07:00 Intake Total 360 ml 180 ml Balance 360 ml 180 ml TAMMY MARKS III DO Mar 26, 2016 15:22
[2016-03-26] MEDS ORDERED: POLYETHYLENE GLYCOL 3350 17 GM PACKET. PO PRN (15:30)
[2016-03-26 17:06] LABS: HCO3 ABG 29 mmol/L (21-28); PCO2 ABG 49 mmHg (35-46); PO2 ABG 66 mmHg (75-108); SAT O2 ABG 92 % (92-99)
[2016-03-26 17:08] LABS: FIO2 ABG 21%
[2016-03-26 19:00] VITALS: BP 129/79
[2016-03-26] MEDS: OXYCODONE/APAP 7.5/325 TABLET. PO PRN (20:56)
[2016-03-26] MEDS: SIMVASTATIN 10 MG TABLET PO SCH (20:56)
[2016-03-26 23:00] VITALS: BP 126/85
[2016-03-27 03:00] VITALS: BP 135/79
[2016-03-27] MEDS: OXYCODONE/APAP 7.5/325 TABLET. PO PRN (04:46)
[2016-03-27 05:51] LABS: BASO % 0 % (0-3); EOS % 1 % (0-3); HEMATOCRIT 42.4 % (39.0-53.0); HEMOGLOBIN 14.5 g/dL (13.0-17.5); LYMPH # 0.8 x10^3/uL (1.0-4.8); LYMPH % 11 % (24-48); MEAN CORPUSCULAR HEMOGLOBIN 31 pg (25-35); MEAN CORPUSCULAR HGB CONC 34 g/dL (31-37); MEAN CORPUSCULAR VOLUME 92 fL (79-100); MONO % 10 % (0-9); NEUT % 78 % (31-73); PLATELET COUNT 153 x10^3/uL (140-400); RED BLOOD COUNT 4.63 x10^6/uL (4.30-5.70); RED CELL DISTRIBUTION WIDTH 13.7 % (11.5-14.5); WHITE BLOOD COUNT 6.9 x10^3/uL (4.0-11.0)
[2016-03-27 06:27] LABS: ALBUMIN 3.3 g/dL (3.4-5.0); ALBUMIN/GLOBULIN RATIO 1.1 (1.0-1.7); CALCIUM 9.2 mg/dL (8.5-10.1); GFR 93.5; POTASSIUM 3.7 mmol/L (3.5-5.1); TOTAL BILIRUBIN 0.8 mg/dL (0.2-1.0); TOTAL PROTEIN 6.4 g/dL (6.4-8.2)
[2016-03-27 07:05] VITALS: BP 133/90
[2016-03-27] MEDS: BUDESONIDE 0.5 MG/2 ML NEBU NEB SCH (08:11)
[2016-03-27] MEDS: IPRATRPIUM/ALBUTEROL 0.5/2.5MG 3 ML NEBU. NEB SCH ×3 (08:11→14:00)
[2016-03-27] MEDS: HYDROCHLOROTHIAZIDE 25 MG TABLET PO SCH (08:32)
[2016-03-27] MEDS: PREDNISONE 20 MG TABLET PO SCH (08:32)
[2016-03-27 10:37] VITALS: BP 120/74
--- NOTE | 2016-03-27 12:55 | PDOC ---
PROGRESS NOTES Chief Complaint Chief Complaint Hypoxic, hypercarbic respir distress ASSESSMENT AND PLAN: 1. Severe emphysema: incongruent with 15 p/y hx. r/o antitrypsin deficiency. appreciate Pulm F/U. home O2 dependent since last admit 2. COPD exacerbation: on nebs, steroids, suppl O2. ok for D/C home 3. Pulm HTN: unclear etiology, aside from COPD. no evidence of CHF on echo last year 4. Pulm nodules: rpt CT in 6-12 mo as per Carmen criteria 5. HTN: well controlled on home regimen 6. HLD: on statin 7. Dispo: home today, F/U with pulm on O/P basis History of Present Illness History of Present Illness Vitals Vitals Vital Signs Date Time Temp Pulse Resp B/P Pulse Ox O2 Delivery O2 Flow Rate FiO2 03/27/16 12:42 Nasal Cannula 2.0 03/27/16 10:37 97.7 90 18 120/74 95 97.7 Physical Exam General: Alert, Oriented X3, Cooperative, No acute distress Heart: Regular rate, Other (2/6 systolic murmur to LLS border) Lungs: Crackles Abdomen: Soft, No tenderness Extremities: No clubbing, No cyanosis, Other (2+ edema B LE) Skin: No rashes, No breakdown, No significant lesion Labs LABS Laboratory Tests Test 03/26/16 15:58 03/27/16 05:35 O2 Saturation 92% (92-99) Arterial Blood pH 7.40 (7.35-7.45) Arterial Blood pCO2 at Patient Temp 49mmHg (35-46) Arterial Blood pO2 at Patient Temp 66mmHg (75-108) Arterial Blood HCO3 29mmol/L (21-28) Arterial Blood Base Excess 3mmol/L (-3-3) FiO2 21% White Blood Count 6.9x10^3/uL (4.0-11.0) Red Blood Count 4.63x10^6/uL (4.30-5.70) Hemoglobin 14.5g/dL (13.0-17.5) Hematocrit 42.4% (39.0-53.0) Mean Corpuscular Volume 92fL (79-100) Mean Corpuscular Hemoglobin 31pg (25-35) Mean Corpuscular Hemoglobin Concent 34g/dL (31-37) Red Cell Distribution Width 13.7% (11.5-14.5) Platelet Count 153x10^3/uL (140-400) Neutrophils (%) (Auto) 78% (31-73) Lymphocytes (%) (Auto) 11% (24-48) Monocytes (%) (Auto) 10% (0-9) Eosinophils (%) (Auto) 1% (0-3) Basophils (%) (Auto) 0% (0-3) Neutrophils # (Auto) 5.4x10^3uL (1.8-7.7) Lymphocytes # (Auto) 0.8x10^3/uL (1.0-4.8) Monocytes # (Auto) 0.7x10^3/uL (0.0-1.1) Eosinophils # (Auto) 0.0x10^3/uL (0.0-0.7) Basophils # (Auto) 0.0x10^3/uL (0.0-0.2) Sodium Level 142mmol/L (136-145) Potassium Level 3.7mmol/L (3.5-5.1) Chloride Level 101mmol/L (98-107) Carbon Dioxide Level 33mmol/L (21-32) Anion Gap 8 (6-14) Blood Urea Nitrogen 16mg/dL (8-26) Creatinine 1.0mg/dL (0.7-1.3) Estimated GFR (Cockcroft-Gault) 93.5 BUN/Creatinine Ratio 16 (6-20) Glucose Level 112mg/dL (70-99) Calcium Level 9.2mg/dL (8.5-10.1) Total Bilirubin 0.8mg/dL (0.2-1.0) Aspartate Amino Transf (AST/SGOT) 33U/L (15-37) Alanine Aminotransferase (ALT/SGPT) 47U/L (16-63) Alkaline Phosphatase 65U/L (46-116) Total Protein 6.4g/dL (6.4-8.2) Albumin 3.3g/dL (3.4-5.0) Albumin/Globulin Ratio 1.1 (1.0-1.7) Review of Systems Review of Systems feels ready to be d/c.ed Comment Review of Relevant ILEANA BEAUCHAMP MD Mar 27, 2016 12:55
[2016-03-27] MEDS ORDERED: PRED-220 PO (13:37)
[2016-03-27 14:55] VITALS: BP 125/78
--- NOTE | 2016-03-30 18:21 | DS ---
DATE OF DISCHARGE: 03/27/2016 CHIEF COMPLAINT: Hypoxic hypercarbic respiratory distress. HOSPITAL COURSE: The patient is a 55-year-old gentleman with severe emphysema who presented to the Emergency Room with severe shortness of breath. He was found both hypoxic as well as hypercarbic and admitted for COPD exacerbation. He was treated with steroids, nebulizers, supplemental O2. Pulmonology consult was obtained as well. He recovered appropriately and was discharged back to home when respiratory status had stabilized. PHYSICAL EXAMINATION: Please refer to progress note from same day. DISCHARGE DATE: 03/27/2016. DISCHARGE CONDITION: Improved. DISCHARGE DISPOSITION: To home. DISCHARGE MEDICATIONS: Please refer to MAR. DISCHARGE DIAGNOSIS: Chronic obstructive pulmonary disease exacerbation. 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 ILEANA BEAUCHAMP MD DR: UR/nts JOB#: [id number] / [id number] JOHANNE
== END 2016-03-27 16:20 | disposition home or self-care (01) | DRG 189 ==
LOC: ER 19:37 → 5 NORTH 22:52
PROVIDERS: ADMIT Internal Medicine; ATTEND Internal Medicine
DX: J96.21 Acute and chronic respiratory failure with hypoxia (principal); J44.1 Chronic obstructive pulmonary disease with (acute) exacerbation; I25.10 Atherosclerotic heart disease of native coronary artery without angina pectoris; D72.819 Decreased white blood cell count, unspecified; I50.9 Heart failure, unspecified; E78.00 Pure hypercholesterolemia, unspecified; I27.2 Other secondary pulmonary hypertension; I11.0 Hypertensive heart disease with heart failure; M19.90 Unspecified osteoarthritis, unspecified site; E78.5 Hyperlipidemia, unspecified; Z82.49 Family history of ischemic heart disease and other diseases of the circulatory system; Z86.718 Personal history of other venous thrombosis and embolism; Z88.8 Allergy status to other drugs, medicaments and biological substances; Z79.899 Other long term (current) drug therapy
CPT/HCPCS: 36415; 36600; 71010; 71020; 71250; 78582; 80048; 80053; 80076; 82805; 83690; 83880; 84484; 85027; 93005; 93306; 93970; 94250; 94640; 94760; 96374; A9540; J2270; J7512; J7620; Q0163; 99285-25

== ENCOUNTER 2016-08-07 00:05 | Emergency (ER) | payer MEDICAID ==
[~2016-08-07] VITALS: Ht 180.3 cm; Wt 74.8 kg
[~2016-08-07 00:05] MED LIST changes: +HYDR50TA6 PO
[2016-08-07] MEDS ORDERED: IPRATRPIUM/ALBUTEROL 0.5/2.5MG 3 ML NEBU. ONE (00:13)
[2016-08-07] MEDS ORDERED: IPRATRPIUM/ALBUTEROL 0.5/2.5MG 3 ML NEBU. NEB ONE (00:45)
[2016-08-07] MEDS ORDERED: predniSONE 20 MG TABLET PO ONE (00:45)
[2016-08-07 01:10] VITALS: BP 125/75
[2016-08-07] MEDS ORDERED: PRED-220 PO (01:13)
--- NOTE | 2016-08-07 01:14 | PHYS DOC ---
Past Medical History Past Medical History: Bronchitis, CHF, COPD, High Cholesterol, Hypertension, Other Additional Past Medical Histor: EMPHESEMA Past Surgical History: Other Additional Past Surgical Histo: HERNIAS Alcohol Use: None Drug Use: None Adult General Chief Complaint Chief Complaint: SHORTNESS OF BREATH HPI HPI Patient is a 56 year old male with oxygen dependent COPD who presents with increased cough and dyspnea over the past few days. States he finished steroids and azithromycin within the past week; this was prescribed by an outside hospital where he had an overnight stay. He denies change in sputum color, but has slight increase in sputum production. He denies leg pain or swelling, hemoptysis, fever or chills, palpitations, chest pain, abdominal pain, nausea or vomiting, back pain, rash, sore throat, rhinorrhea, nasal congestion. He is using albuterol inhalers/nebulizers at home with intermittent relief. Review of Systems Review of Systems Constitutional: Denies fever or chills [] Eyes: Denies change in visual acuity, redness, or eye pain [] HENT: Denies nasal congestion or sore throat [] Respiratory: Has cough and shortness of breath [] Cardiovascular: No additional information not addressed in HPI [] GI: Denies abdominal pain, nausea, vomiting, bloody stools or diarrhea [] : Denies dysuria or hematuria [] Musculoskeletal: Denies back pain or joint pain [] Integument: Denies rash or skin lesions [] Neurologic: Denies headache, focal weakness or sensory changes [] Endocrine: Denies polyuria or polydipsia [] Current Medications Current Medications Current Medications Medications (Trade) Dose Ordered Sig/[facility] Start Time Stop Time Status Last Admin Dose Admin Albuterol/ Ipratropium (Duoneb) 3 ml 1X ONCE 08/07/16 00:45 08/07/16 00:46 DC 08/07/16 00:45 3 ML Prednisone (Prednisone) 60 mg 1X ONCE 08/07/16 00:45 08/07/16 00:46 DC 08/07/16 00:44 60 MG Allergies Allergies Allergies Coded Allergies Type Severity Reaction Last Updated Verified methylprednisolone Adverse Reaction Severe Shortness of Air 02/08/16 Yes Physical Exam Physical Exam Constitutional: Well developed, well nourished, no acute distress, non-toxic appearance. [] HENT: Normocephalic, atraumatic, bilateral external ears normal, oropharynx moist, no oral exudates, nose normal. [] Eyes: PERRLA, EOMI, conjunctiva normal, no discharge. [] Neck: Normal range of motion, no tenderness, supple, no stridor. [] Cardiovascular:Heart rate regular rhythm [] Lungs & Thorax: Bilateral wheezing with [] Abdomen: Bowel sounds normal, soft, no tenderness. [] Skin: Warm, dry, no erythema, no rash. [] Back: Normal range of motion. [] Extremities: No tenderness, ROM intact, no edema. [] Neurologic: Alert and oriented X 3, normal motor function, normal sensory function, no focal deficits noted. [] Psychologic: Affect normal, judgement normal, mood normal. [] Current Patient Data Vital Signs Vital Signs Date Time Temp Pulse Resp B/P (MAP) Pulse Ox O2 Delivery O2 Flow Rate FiO2 08/07/16 01:10 86 125/75 (92) 96 Nasal Cannula 2.0 08/07/16 00:25 99.5 24 99.5 Radiology/Procedures Radiology/Procedures Chest x-ray as interpreted by me as hyperexpanded, but otherwise nonacute Course & Med Decision Making Course & Med Decision Making Pertinent Labs and Imaging studies reviewed. (See chart for details) He is feeling better after medications here. Discussed need for steroid taper and to follow-up closely with his doctor. Return precautions given. He understands and agrees with plan. Dragon Disclaimer Dragon Disclaimer This electronic medical record was generated, in whole or in part, using a voice recognition dictation system. Departure Departure Impression: Primary Impression: COPD with exacerbation Disposition: 01 HOME, SELF-CARE Condition: STABLE Referrals: NO PCP (PCP) Patient Instructions: Chronic Obstructive Pulmonary Disease Exacerbation, Easy- to-Read Additional Instructions: Take prednisone as prescribed. Follow-up with your primary care doctor within one week. Return for any concerns. Scripts Prednisone (PREDNISONE) 10 Mg Tablet 10 MG PO see instructions, #55 TAB Take 50 mg (5 pills) daily for 5 days, then take 40 mg (4 pills) daily for 4 days, then take 30 mg (3 pills) daily for 3 days, then take 20 mg (2 pills) daily for 2 days, then take 10 mg on last day. Prov: Genesis SARGENT MD 08/07/16 Genesis SARGENT MD Aug 07, 2016 01:14
--- NOTE | 2016-08-07 07:18 | RAD ---
Indication: Dyspnea and cough. Time of exam 0040 hours. Correlation is made with prior exam from 03/26/2016. The heart size is stable. The lungs are clear. The lungs do appear to be hyperinflated. No infiltrate is detected. There is no effusion or pneumothorax. Impression: No acute cardiopulmonary process is detected.
== END 2016-08-07 01:31 | disposition home or self-care (01) ==
LOC: ER 00:05
DX: J44.1 Chronic obstructive pulmonary disease with (acute) exacerbation (principal); E78.00 Pure hypercholesterolemia, unspecified; I11.0 Hypertensive heart disease with heart failure; I50.9 Heart failure, unspecified; Z99.81 Dependence on supplemental oxygen; Z88.8 Allergy status to other drugs, medicaments and biological substances
CPT/HCPCS: 71010; 94250; 94640; 99284; J7512; J7620

== ENCOUNTER 2017-01-06 01:39 | Inpatient (IN) | payer MEDICAID ==
[~2017-01-06] VITALS: Ht 180.3 cm; Wt 77.1 kg
--- NOTE | 2017-01-06 01:43 | PHYS DOC ---
Past Medical History Past Medical History: Bronchitis, CHF, COPD, High Cholesterol, Hypertension, Other Additional Past Medical Histor: EMPHESEMA Past Surgical History: Other Additional Past Surgical Histo: HERNIAS Alcohol Use: None Drug Use: None Adult General Chief Complaint Chief Complaint: SHORTNESS OF BREATH [facility] HPI Patient is a 56 year old -[place] male who presents with shortness of breath over the last 2 days. He states he's been having a white productive cough. He denies any fevers chills nausea or vomiting. He denies any chest discomfort. He states his been compliant with his medicines at home. He does state he has an allergy to Solu-Medrol and made it difficult for him to breathe. Review of Systems Review of Systems Constitutional: Denies fever or chills [] Eyes: Denies change in visual acuity, redness, or eye pain [] HENT: Denies nasal congestion or sore throat [] Respiratory: Positive for cough and shortness of breath Cardiovascular: No additional information not addressed in HPI [] GI: Denies abdominal pain, nausea, vomiting, bloody stools or diarrhea [] : Denies dysuria or hematuria [] Musculoskeletal: Denies back pain or joint pain [] Integument: Denies rash or skin lesions [] Neurologic: Denies headache, focal weakness or sensory changes [] Endocrine: Denies polyuria or polydipsia [] All other systems were reviewed and found to be within normal limits, except as documented in this note. Current Medications Current Medications Current Medications Medications (Trade) Dose Ordered Sig/Candy Start Time Stop Time Status Last Admin Dose Admin Albuterol/ Ipratropium (Duoneb) 3 ml 1X ONCE 01/06/17 03:00 01/06/17 03:01 DC 01/06/17 02:53 3 ML Azithromycin 250 ml @ 250 mls/hr 1X ONCE 01/06/17 04:00 01/06/17 04:59 Potassium Chloride (Klor-Con) 40 meq 1X ONCE 01/06/17 03:45 01/06/17 03:46 UNV Prednisone (Prednisone) 50 mg 1X ONCE 01/06/17 03:45 01/06/17 03:46 UNV Allergies Allergies Allergies Coded Allergies Type Severity Reaction Last Updated Verified methylprednisolone Adverse Reaction Severe Shortness of Air 02/08/16 Yes Physical Exam Physical Exam Constitutional: Well developed, well nourished, no acute distress, non-toxic appearance. [] HENT: Normocephalic, atraumatic, bilateral external ears normal, oropharynx moist, no oral exudates, nose normal. [] Eyes: PERRLA, EOMI, conjunctiva normal, no discharge. [] Neck: Normal range of motion, no tenderness, supple, no stridor. [] Cardiovascular:Heart rate regular rhythm, no murmur [] Lungs & Thorax: Decreased breath sounds at the bases with moderate expiratory wheezes bilaterally Abdomen: Bowel sounds normal, soft, no tenderness, no masses, no pulsatile masses. [] Skin: Warm, dry, no erythema, no rash. [] Back: No tenderness, no CVA tenderness. [] Extremities: No tenderness, no cyanosis, no clubbing, ROM intact, no edema. [] Neurologic: Alert and oriented X 3, normal motor function, normal sensory function, no focal deficits noted. [] Psychologic: Affect normal, judgement normal, mood normal. [] Current Patient Data Vital Signs Vital Signs Date Time Temp Pulse Resp B/P (MAP) Pulse Ox O2 Delivery O2 Flow Rate FiO2 01/06/17 03:06 95 Nasal Cannula 2.0 01/06/17 02:45 99.5 88 24 113/80 (91) 99.5 Lab Values Laboratory Tests Test 01/06/17 02:30 White Blood Count 5.4 x10^3/uL (4.0-11.0) Red Blood Count 4.56 x10^6/uL (4.30-5.70) Hemoglobin 14.7 g/dL (13.0-17.5) Hematocrit 43.4 % (39.0-53.0) Mean Corpuscular Volume 95 fL (79-100) Mean Corpuscular Hemoglobin 32 pg (25-35) Mean Corpuscular Hemoglobin Concent 34 g/dL (31-37) Red Cell Distribution Width 13.3 % (11.5-14.5) Platelet Count 133 x10^3/uL (140-400) L Neutrophils (%) (Auto) 76 % (31-73) H Lymphocytes (%) (Auto) 12 % (24-48) L Monocytes (%) (Auto) 10 % (0-9) H Eosinophils (%) (Auto) 2 % (0-3) Basophils (%) (Auto) 1 % (0-3) Neutrophils # (Auto) 4.1 x10^3uL (1.8-7.7) Lymphocytes # (Auto) 0.6 x10^3/uL (1.0-4.8) L Monocytes # (Auto) 0.5 x10^3/uL (0.0-1.1) Eosinophils # (Auto) 0.1 x10^3/uL (0.0-0.7) Basophils # (Auto) 0.0 x10^3/uL (0.0-0.2) Sodium Level 142 mmol/L (136-145) Potassium Level 2.9 mmol/L (3.5-5.1) *L Chloride Level 102 mmol/L (98-107) Carbon Dioxide Level 35 mmol/L (21-32) H Anion Gap 5 (6-14) L Blood Urea Nitrogen 14 mg/dL (8-26) Creatinine 1.2 mg/dL (0.7-1.3) Estimated GFR (Cockcroft-Gault) 75.5 Glucose Level 83 mg/dL (70-99) Calcium Level 8.3 mg/dL (8.5-10.1) L Total Bilirubin 1.1 mg/dL (0.2-1.0) H Direct Bilirubin 0.4 mg/dL (0.0-0.2) H Aspartate Amino Transferase (AST) 24 U/L (15-37) Alanine Aminotransferase (ALT) 49 U/L (16-63) Alkaline Phosphatase 58 U/L (46-116) Creatine Kinase 221 U/L (39-308) Creatine Kinase MB (Mass) 2.4 ng/mL (0.0-3.6) Creatine Kinase MB Relative Index 1.1 % (0-4) Troponin I Quantitative 0.045 ng/mL (0.000-0.055) TC-Unn-O-Type Natriuretic Peptide 61 pg/mL (0-124) Total Protein 6.3 g/dL (6.4-8.2) L Albumin 3.6 g/dL (3.4-5.0) Laboratory Tests 01/06/17 02:30 Laboratory Tests 01/06/17 02:30 EKG EKG EKG shows sinus rhythm with rate of [address] elevations or concerning T-wave inversions, normal axis, QTC 427 ms, as interpreted by me. Radiology/Procedures Radiology/Procedures Chest x-ray did not show any focal salt elevations, bony abnormality's, pneumothorax, as interpreted by me. Impressions: COPD exacerbation Hypokalemia Course & Med Decision Making Course & Med Decision Making Pertinent Labs and Imaging studies reviewed. (See chart for details) She has an allergy Solu-Medrol studies given 50 prednisone 1, azithromycin and DuoNeb. He is being admitted secondary to his shortness of breath and hypokalemia. He is stable condition at this time. Potassium is being replaced orally. Magnesium is pending. Dragon Disclaimer Dragon Disclaimer This electronic medical record was generated, in whole or in part, using a voice recognition dictation system. Departure Departure Impression: Primary Impression: COPD with exacerbation Disposition: ADMITTED INPATIENT Admitting Physician: Dar Hathaway Condition: STABLE Referrals: UNKNOWN PCP NAME (PCP) ODALIS LÓPEZ MD Jan 06, 2017 01:43
[2017-01-06] MEDS ORDERED: IPRATRPIUM/ALBUTEROL 0.5/2.5MG 3 ML NEBU. NEB ONE ×2 (02:00→03:00)
[2017-01-06 02:49] LABS: BASO % 1 % (0-3); EOS % 2 % (0-3); HEMATOCRIT 43.4 % (39.0-53.0); HEMOGLOBIN 14.7 g/dL (13.0-17.5); LYMPH # 0.6 x10^3/uL (1.0-4.8); LYMPH % 12 % (24-48); MEAN CORPUSCULAR HEMOGLOBIN 32 pg (25-35); MEAN CORPUSCULAR HGB CONC 34 g/dL (31-37); MEAN CORPUSCULAR VOLUME 95 fL (79-100); MONO % 10 % (0-9); NEUT % 76 % (31-73); PLATELET COUNT 133 x10^3/uL (140-400); RED BLOOD COUNT 4.56 x10^6/uL (4.30-5.70); RED CELL DISTRIBUTION WIDTH 13.3 % (11.5-14.5); WHITE BLOOD COUNT 5.4 x10^3/uL (4.0-11.0)
[2017-01-06 03:22] LABS: ALBUMIN 3.6 g/dL (3.4-5.0); CALCIUM 8.3 mg/dL (8.5-10.1); CKMB MASS 2.4 ng/mL (0.0-3.6); CREATININE 1.2 mg/dL (0.7-1.3); DIRECT BILIRUBIN 0.4 mg/dL (0.0-0.2); GFR 75.5; TOTAL BILIRUBIN 1.1 mg/dL (0.2-1.0); TOTAL PROTEIN 6.3 g/dL (6.4-8.2)
[2017-01-06 03:25] LABS: POTASSIUM 2.9 mmol/L (3.5-5.1)
[2017-01-06 03:27] LABS: INR 0.9 (0.8-1.1); PROTHROMBIN TIME PATIENT 11.7 SEC (11.7-14.0)
[2017-01-06] MEDS ORDERED: ONDANSETRON PF 4 MG/2 ML VIAL. IV PRN ×2 (03:45→08:45)
[2017-01-06] MEDS ORDERED: AZITHRMYCN 500MG IVPB FOR OMNI 250 ML IV ONE (04:00)
[2017-01-06] MEDS ORDERED: predniSONE 20 MG TABLET PO ONE (04:00)
[2017-01-06] MEDS ORDERED: POTASSIUM CHLORIDE 20 MEQ TABLET.ER. PO ONE ×2 (04:00→09:00)
[2017-01-06 04:52] VITALS: BP 129/89
[2017-01-06 07:00] VITALS: BP 120/85
--- NOTE | 2017-01-06 07:54 | RAD ---
Single view chest History:Shortness of air An AP view of the chest is submitted. Comparison: 12/17/2016. Findings: There is again emphysema most notable left apex. There is no pneumothorax, pleural fluid, lobar infiltrate. Heart size is stable, within normal limits. Impression: 1. There is emphysema, no infiltrate identified.
[2017-01-06] MEDS: IPRATRPIUM/ALBUTEROL 0.5/2.5MG 3 ML NEBU. NEB SCH ×4 (08:06→19:29)
[2017-01-06] MEDS ORDERED: MAGNESIUM SULFATE 2GM 50 ML IV ONE (09:00)
--- NOTE | 2017-01-06 10:10 | PDOC1 ---
History and Physical Date of Admission Date of Admission DATE: 01/06/17 TIME: 10:06 Identification/Chief Complaint Chief Complaint soa Problems: Source Source: Caregiver, Chart review, Patient History of Present Illness History of Present Illness 56 y.o AA male, prev heavy smoker, quit in 2014 coming in with COPD sxs, cough, no fevers, no CP, hx CHF. CXR shows emphysema but no acute infiltrate. K was critically low at 2.9, Got 40 PO at ER, I will give miore, Mag also low 1,7. WBC 5. Admitted for COPD and critical hypokal,emia, NO recent travels or sick contact, NO flu like sxs. EKG reasuring Past Medical History Cardiovascular: HTN, Hyperlipidemia Pulmonary: COPD CENTRAL NERVOUS SYSTEM: Other GI: No pertinent hx Heme/Onc: No pertinent hx, Other Hepatobiliary: No pertinent hx Psych: No pertinent hx Musculoskeletal: Osteoarthritis Rheumatologic: No pertinent hx Infectious disease: No pertinent hx Renal/: No pertinent hx Endocrine: No pertinent hx Past Surgical History Past Surgical History: Hernia Repair, No pertinent history Family History Family History: Coronary Artery Disease, Hypertension Social History Smoke: Quit ALCOHOL: occassional Drugs: None Current Problem List Problem List Problems Medical Problems: (1) COPD with exacerbation Status: Acute Problems: Current Medications Current Medications Current Medications Albuterol/ Ipratropium (Duoneb) 3 ml 1X ONCE NEB Last administered on 02:32; Start 01/06/17 at 02:00; Stop 01/06/17 at 02:01; Status DC Albuterol/ Ipratropium (Duoneb) 3 ml 1X ONCE NEB Last administered on 02:53; Start 01/06/17 at 03:00; Stop 01/06/17 at 03:01; Status DC Azithromycin 250 ml @ 250 mls/hr 1X ONCE IV Last administered on 01/06/17 04:00; Start 01/06/17 at 04:00; Stop 01/06/17 at 04:59; Status DC Prednisone (Prednisone) 50 mg 1X ONCE PO Last administered on 01/06/17 04:00 ; Start 01/06/17 at 04:00; Stop 01/06/17 at 04:01; Status DC Potassium Chloride (Klor-Con) 40 meq 1X ONCE PO Last administered on 04:00; Start 01/06/17 at 04:00; Stop 01/06/17 at 04:01; Status DC Ondansetron HCl (Zofran) 4 mg PRN Q8HRS PRN IV NAUSEA/VOMITING; Start at 03:45; Stop 01/06/17 at 08:39; Status DC Albuterol/ Ipratropium (Duoneb) 3 ml RTQID NEB Last administered on 01/06/17 08:06; Start 01/06/17 at 08:00 Ondansetron HCl (Zofran) 4 mg PRN Q6HRS PRN IV NAUSEA/VOMITING; Start at 08:45; Stop 01/07/17 at 08:44 Guaifenesin (Robitussin Dm) 10 ml PRN Q6HRS PRN PO COUGH; Start 01/06/17 at 08 :45 Potassium Chloride (Klor-Con) 40 meq 1X ONCE PO Last administered on 09:27; Start 01/06/17 at 09:00; Stop 01/06/17 at 09:01; Status DC Magnesium Sulfate/ Dextrose 50 ml @ 25 mls/hr 1X ONCE IV Last administered on 01/06/17 09:28; Start 01/06/17 at 09:00; Stop 01/06/17 at 10:59 Active Scripts Active Prednisone 50 Mg Tablet 1 Tab PO DAILY Azithromycin Tablet (Azithromycin) 250 Mg Tablet 1 Pkg PO UD Prednisone 10 Mg Tablet 10 Mg PO SEE INSTRUCTIONS Take 50 mg (5 pills) daily for 5 days, then take 40 mg (4 pills) daily for 4 days, then take 30 mg (3 pills) daily for 3 days, then take 20 mg (2 pills) daily for 2 days, then take 10 mg on last day. Prednisone 10 Mg Tablet 10 Mg PO UD Proair Hfa Inhaler (Albuterol Sulfate) 8.5 Gm Hfa.aer.ad 2 Puff INH Q4HRS PRN Prednisone 20 Mg Tablet 20 Mg PO DAILY 5 Days Reported Hydrochlorothiazide Tablet (Hydrochlorothiazide) 50 Mg Tablet 25 Mg PO DAILY Symbicort 160-4.5 Mcg Inhaler (Budesonide/Formoterol Fumarate) 10.2 Gm Hfa.aer.ad 2 Puff IH BID Spiriva (Tiotropium [place]) 18 Mcg Cap.w.dev 2 Inh IH DAILY Zocor (Simvastatin) 10 Mg Tablet 1 Tab PO QHS Allergies Allergies: Coded Allergies: methylprednisolone (Verified Adverse Reaction, Severe, Shortness of Air, 02/08/16) ROS Review of System as per HPI, all 14 pt neg Physical Exam General: Alert HEENT: Atraumatic, PERRLA Lungs: Normal air movement, Other (some minimal wheezing, crackles) Cardiovascular: S1, S2 Breasts: Normal, Rt breast nml w/o mass, Lt breast nml w/o mass, Nipples normal Abdomen: Normal bowel sounds, Soft, No tenderness, No hepatosplenomegaly, No masses Male Genitals Exam: normal genitalia, normal prostate Rectal Exam: not examined PELVIC: Nml ext genitalia Extremities: No clubbing, No cyanosis, No edema, Normal pulses, No tenderness/ swelling Skin: No rashes, No breakdown, No significant lesion Neuro: Normal gait, Normal speech, Strength at 5/5 X4 ext, Normal tone, Sensation intact, Cranial nerves 3-12 NL, Reflexes 2+ Psych/Mental Status: Mental status NL, Mood NL Vitals Vitals Vital Signs Date Time Temp Pulse Resp B/P (MAP) Pulse Ox O2 Delivery O2 Flow Rate FiO2 01/06/17 08:08 98 Nasal Cannula 2.0 01/06/17 07:00 97.9 83 19 120/85 (97) 97.9 Labs Labs Laboratory Tests Test 01/06/17 02:30 White Blood Count 5.4 x10^3/uL (4.0-11.0) Red Blood Count 4.56 x10^6/uL (4.30-5.70) Hemoglobin 14.7 g/dL (13.0-17.5) Hematocrit 43.4 % (39.0-53.0) Mean Corpuscular Volume 95 fL (79-100) Mean Corpuscular Hemoglobin 32 pg (25-35) Mean Corpuscular Hemoglobin Concent 34 g/dL (31-37) Red Cell Distribution Width 13.3 % (11.5-14.5) Platelet Count 133 x10^3/uL (140-400) Neutrophils (%) (Auto) 76 % (31-73) Lymphocytes (%) (Auto) 12 % (24-48) Monocytes (%) (Auto) 10 % (0-9) Eosinophils (%) (Auto) 2 % (0-3) Basophils (%) (Auto) 1 % (0-3) Neutrophils # (Auto) 4.1 x10^3uL (1.8-7.7) Lymphocytes # (Auto) 0.6 x10^3/uL (1.0-4.8) Monocytes # (Auto) 0.5 x10^3/uL (0.0-1.1) Eosinophils # (Auto) 0.1 x10^3/uL (0.0-0.7) Basophils # (Auto) 0.0 x10^3/uL (0.0-0.2) Prothrombin Time 11.7 SEC (11.7-14.0) Prothromb Time International Ratio 0.9 (0.8-1.1) Sodium Level 142 mmol/L (136-145) Potassium Level 2.9 mmol/L (3.5-5.1) Chloride Level 102 mmol/L (98-107) Carbon Dioxide Level 35 mmol/L (21-32) Anion Gap 5 (6-14) Blood Urea Nitrogen 14 mg/dL (8-26) Creatinine 1.2 mg/dL (0.7-1.3) Estimated GFR (Cockcroft-Gault) 75.5 Glucose Level 83 mg/dL (70-99) Calcium Level 8.3 mg/dL (8.5-10.1) Magnesium Level 1.5 mg/dL (1.8-2.4) Total Bilirubin 1.1 mg/dL (0.2-1.0) Direct Bilirubin 0.4 mg/dL (0.0-0.2) Aspartate Amino Transf (AST/SGOT) 24 U/L (15-37) Alanine Aminotransferase (ALT/SGPT) 49 U/L (16-63) Alkaline Phosphatase 58 U/L (46-116) Creatine Kinase 221 U/L (39-308) Creatine Kinase MB (Mass) 2.4 ng/mL (0.0-3.6) Creatine Kinase MB Relative Index 1.1 % (0-4) Troponin I Quantitative 0.045 ng/mL (0.000-0.055) PV-Xpr-T-Type Natriuretic Peptide 61 pg/mL (0-124) Total Protein 6.3 g/dL (6.4-8.2) Albumin 3.6 g/dL (3.4-5.0) Laboratory Tests Test 01/06/17 02:30 White Blood Count 5.4 x10^3/uL (4.0-11.0) Red Blood Count 4.56 x10^6/uL (4.30-5.70) Hemoglobin 14.7 g/dL (13.0-17.5) Hematocrit 43.4 % (39.0-53.0) Mean Corpuscular Volume 95 fL (79-100) Mean Corpuscular Hemoglobin 32 pg (25-35) Mean Corpuscular Hemoglobin Concent 34 g/dL (31-37) Red Cell Distribution Width 13.3 % (11.5-14.5) Platelet Count 133 x10^3/uL (140-400) Neutrophils (%) (Auto) 76 % (31-73) Lymphocytes (%) (Auto) 12 % (24-48) Monocytes (%) (Auto) 10 % (0-9) Eosinophils (%) (Auto) 2 % (0-3) Basophils (%) (Auto) 1 % (0-3) Neutrophils # (Auto) 4.1 x10^3uL (1.8-7.7) Lymphocytes # (Auto) 0.6 x10^3/uL (1.0-4.8) Monocytes # (Auto) 0.5 x10^3/uL (0.0-1.1) Eosinophils # (Auto) 0.1 x10^3/uL (0.0-0.7) Basophils # (Auto) 0.0 x10^3/uL (0.0-0.2) Prothrombin Time 11.7 SEC (11.7-14.0) Prothromb Time International Ratio 0.9 (0.8-1.1) Sodium Level 142 mmol/L (136-145) Potassium Level 2.9 mmol/L (3.5-5.1) Chloride Level 102 mmol/L (98-107) Carbon Dioxide Level 35 mmol/L (21-32) Anion Gap 5 (6-14) Blood Urea Nitrogen 14 mg/dL (8-26) Creatinine 1.2 mg/dL (0.7-1.3) Estimated GFR (Cockcroft-Gault) 75.5 Glucose Level 83 mg/dL (70-99) Calcium Level 8.3 mg/dL (8.5-10.1) Magnesium Level 1.5 mg/dL (1.8-2.4) Total Bilirubin 1.1 mg/dL (0.2-1.0) Direct Bilirubin 0.4 mg/dL (0.0-0.2) Aspartate Amino Transf (AST/SGOT) 24 U/L (15-37) Alanine Aminotransferase (ALT/SGPT) 49 U/L (16-63) Alkaline Phosphatase 58 U/L (46-116) Creatine Kinase 221 U/L (39-308) Creatine Kinase MB (Mass) 2.4 ng/mL (0.0-3.6) Creatine Kinase MB Relative Index 1.1 % (0-4) Troponin I Quantitative 0.045 ng/mL (0.000-0.055) DR-Zjp-M-Type Natriuretic Peptide 61 pg/mL (0-124) Total Protein 6.3 g/dL (6.4-8.2) Albumin 3.6 g/dL (3.4-5.0) VTE Prophylaxis Ordered VTE Prophylaxis Devices: Yes VTE Pharmacological Prophylaxi: Yes Assessment/Plan Assessment/Plan 1. COPD exacerb, emphysematous type 2. Ex smoker, quit 2014 3, Critical hYPOKAlemia (no GI loss) 4. Hypokelemia 5. Thrombocytopenia, mild 133 PLAN: Admit 2 MN Duoneb, cough med Replace K 40 another dose Recheck K 1 pm Mag 2 gms now Recheck levels tmr PTOT Montior low platelets Furtehr recs pending course Dw RN at bedside RAI DURANT MD Jan 06, 2017 10:10
[2017-01-06] MEDS ORDERED: NON FORMULARY ITEM (Albuterol Sulfate (Proair Hfa Inhaler) 2 PUFF) INH PRN (10:15)
[2017-01-06] MEDS ORDERED: ALBUTEROL SULFATE 2.5 MG/3 ML NEBU. NEB PRN (10:30)
[2017-01-06 11:00] VITALS: BP 125/61
[2017-01-06] MEDS: hydroCHLOROthiazide 25 MG TABLET PO SCH ×2 (11:00→12:12)
--- NOTE | 2017-01-06 11:22 | EKG ---
[facility] [address] [place] [address] Test Date: 2017-01-06 Test Time: 02:12:40 Pat Name: KAYLA JONES Department: Room: 528 1 Gender: M Registered Sales Assistant: : [id number] Requested By: ODALIS LÓPEZ Order Number: [id number] Reading MD: Young Mejia Measurements Intervals [place] Rate: 88 P: 70 NM: 176 QRS: 18 QRSD: 82 T: 67 QT: 350 QTc: 427 Interpretive Statements SINUS RHYTHM ATRIAL PREMATURE COMPLEX(ES) QRS(T) CONTOUR ABNORMALITY CONSIDER ANTEROSEPTAL MYOCARDIAL DAMAGE POSSIBLY ABNORMAL ECG Electronically Signed On 01-15-2017 14:16:00 CENSUS CLERK by Young Mejia
[2017-01-06] MEDS ORDERED: IBUPROFEN 600 MG TABLET. PO PRN (11:45)
[2017-01-06] MEDS ORDERED: ACETAMINOPHEN 500 MG TABLET PO PRN (11:45)
[2017-01-06] MEDS: BUDESONIDE 0.5 MG/2 ML NEBU. NEB SCH ×2 (11:54→20:00)
[2017-01-06] MEDS ORDERED: IPRATRPIUM/ALBUTEROL 0.5/2.5MG 3 ML NEBU. NEB SCH (12:00)
[2017-01-06] MEDS: AZITHROMYCIN 250 MG TABLET. PO SCH (12:12)
[2017-01-06] MEDS: predniSONE 10 MG TABLET PO SCH (12:13)
[2017-01-06 15:00] VITALS: BP 110/77
--- NOTE | 2017-01-06 17:37 | PDOC ---
PULMONARY PROGRESS NOTES Vitals Vital Signs Date Time Temp Pulse Resp B/P (MAP) Pulse Ox O2 Delivery O2 Flow Rate FiO2 01/06/17 15:12 94 Nasal Cannula 2.0 01/06/17 15:00 97.7 89 19 110/77 (88) 97.7 General: Alert, Oriented X4 HEENT: Other Lungs: Crackles Cardiovascular: S1, S2 Abdomen: Soft, Non-tender Extremities: Other Labs Laboratory Tests Test 01/06/17 02:30 01/06/17 09:45 01/06/17 13:00 01/06/17 15:44 White Blood Count 5.4 x10^3/uL (4.0-11.0) Red Blood Count 4.56 x10^6/uL (4.30-5.70) Hemoglobin 14.7 g/dL (13.0-17.5) Hematocrit 43.4 % (39.0-53.0) Mean Corpuscular Volume 95 fL (79-100) Mean Corpuscular Hemoglobin 32 pg (25-35) Mean Corpuscular Hemoglobin Concent 34 g/dL (31-37) Red Cell Distribution Width 13.3 % (11.5-14.5) Platelet Count 133 x10^3/uL (140-400) Neutrophils (%) (Auto) 76 % (31-73) Lymphocytes (%) (Auto) 12 % (24-48) Monocytes (%) (Auto) 10 % (0-9) Eosinophils (%) (Auto) 2 % (0-3) Basophils (%) (Auto) 1 % (0-3) Neutrophils # (Auto) 4.1 x10^3uL (1.8-7.7) Lymphocytes # (Auto) 0.6 x10^3/uL (1.0-4.8) Monocytes # (Auto) 0.5 x10^3/uL (0.0-1.1) Eosinophils # (Auto) 0.1 x10^3/uL (0.0-0.7) Basophils # (Auto) 0.0 x10^3/uL (0.0-0.2) Prothrombin Time 11.7 SEC (11.7-14.0) Prothromb Time International Ratio 0.9 (0.8-1.1) Sodium Level 142 mmol/L (136-145) Potassium Level 2.9 mmol/L (3.5-5.1) 4.5 mmol/L (3.5-5.1) Chloride Level 102 mmol/L (98-107) Carbon Dioxide Level 35 mmol/L (21-32) Anion Gap 5 (6-14) Blood Urea Nitrogen 14 mg/dL (8-26) Creatinine 1.2 mg/dL (0.7-1.3) Estimated GFR (Cockcroft-Gault) 75.5 Glucose Level 83 mg/dL (70-99) Calcium Level 8.3 mg/dL (8.5-10.1) Magnesium Level 1.5 mg/dL (1.8-2.4) Total Bilirubin 1.1 mg/dL (0.2-1.0) Direct Bilirubin 0.4 mg/dL (0.0-0.2) Aspartate Amino Transf (AST/SGOT) 24 U/L (15-37) Alanine Aminotransferase (ALT/SGPT) 49 U/L (16-63) Alkaline Phosphatase 58 U/L (46-116) Creatine Kinase 221 U/L (39-308) Creatine Kinase MB (Mass) 2.4 ng/mL (0.0-3.6) Creatine Kinase MB Relative Index 1.1 % (0-4) Troponin I Quantitative 0.045 ng/mL (0.000-0.055) 0.041 ng/mL (0.000-0.055) 0.023 ng/mL (0.000-0.055) NF-Miy-O-Type Natriuretic Peptide 61 pg/mL (0-124) Total Protein 6.3 g/dL (6.4-8.2) Albumin 3.6 g/dL (3.4-5.0) Laboratory Tests Test 01/06/17 02:30 01/06/17 09:45 01/06/17 13:00 01/06/17 15:44 White Blood Count 5.4 x10^3/uL (4.0-11.0) Red Blood Count 4.56 x10^6/uL (4.30-5.70) Hemoglobin 14.7 g/dL (13.0-17.5) Hematocrit 43.4 % (39.0-53.0) Mean Corpuscular Volume 95 fL (79-100) Mean Corpuscular Hemoglobin 32 pg (25-35) Mean Corpuscular Hemoglobin Concent 34 g/dL (31-37) Red Cell Distribution Width 13.3 % (11.5-14.5) Platelet Count 133 x10^3/uL (140-400) Neutrophils (%) (Auto) 76 % (31-73) Lymphocytes (%) (Auto) 12 % (24-48) Monocytes (%) (Auto) 10 % (0-9) Eosinophils (%) (Auto) 2 % (0-3) Basophils (%) (Auto) 1 % (0-3) Neutrophils # (Auto) 4.1 x10^3uL (1.8-7.7) Lymphocytes # (Auto) 0.6 x10^3/uL (1.0-4.8) Monocytes # (Auto) 0.5 x10^3/uL (0.0-1.1) Eosinophils # (Auto) 0.1 x10^3/uL (0.0-0.7) Basophils # (Auto) 0.0 x10^3/uL (0.0-0.2) Prothrombin Time 11.7 SEC (11.7-14.0) Prothromb Time International Ratio 0.9 (0.8-1.1) Sodium Level 142 mmol/L (136-145) Potassium Level 2.9 mmol/L (3.5-5.1) 4.5 mmol/L (3.5-5.1) Chloride Level 102 mmol/L (98-107) Carbon Dioxide Level 35 mmol/L (21-32) Anion Gap 5 (6-14) Blood Urea Nitrogen 14 mg/dL (8-26) Creatinine 1.2 mg/dL (0.7-1.3) Estimated GFR (Cockcroft-Gault) 75.5 Glucose Level 83 mg/dL (70-99) Calcium Level 8.3 mg/dL (8.5-10.1) Magnesium Level 1.5 mg/dL (1.8-2.4) Total Bilirubin 1.1 mg/dL (0.2-1.0) Direct Bilirubin 0.4 mg/dL (0.0-0.2) Aspartate Amino Transf (AST/SGOT) 24 U/L (15-37) Alanine Aminotransferase (ALT/SGPT) 49 U/L (16-63) Alkaline Phosphatase 58 U/L (46-116) Creatine Kinase 221 U/L (39-308) Creatine Kinase MB (Mass) 2.4 ng/mL (0.0-3.6) Creatine Kinase MB Relative Index 1.1 % (0-4) Troponin I Quantitative 0.045 ng/mL (0.000-0.055) 0.041 ng/mL (0.000-0.055) 0.023 ng/mL (0.000-0.055) BU-Jpw-H-Type Natriuretic Peptide 61 pg/mL (0-124) Total Protein 6.3 g/dL (6.4-8.2) Albumin 3.6 g/dL (3.4-5.0) Medications Active Scripts Medications Dose Route/Sig Max Daily Dose Days Date Category Dose Instructions Prednisone 50 Mg Tablet 1 Tab PO DAILY 12/17/16 Rx Azithromycin Tablet (Azithromycin) 250 Mg Tablet 1 Pkg PO UD 12/17/16 Rx Prednisone 10 Mg Tablet 10 Mg PO SEE INSTRUCTIONS 08/07/16 Rx Take 50 mg (5 pills) daily for 5 days, then take 40 mg (4 pills) daily for 4 days, then take 30 mg (3 pills) daily for 3 days, then take 20 mg (2 pills) daily for 2 days, then take 10 mg on last day. Prednisone 10 Mg Tablet 10 Mg PO UD 03/27/16 Rx Hydrochlorothiazide Tablet (Hydrochlorothiazide) 50 Mg Tablet 25 Mg PO DAILY 03/24/16 Reported Proair Hfa Inhaler (Albuterol Sulfate) 8.5 Gm Hfa.aer.ad 2 Puff INH Q4HRS PRN 02/09/16 Rx Prednisone 20 Mg Tablet 20 Mg PO DAILY 5 10/30/15 Rx Symbicort 160-4.5 Mcg Inhaler (Budesonide/Formoterol Fumarate) 10.2 Gm Hfa.aer.ad 2 Puff IH BID 09/21/15 Reported Spiriva (Tiotropium [place]) 18 Mcg Cap.w.dev 2 Inh IH DAILY 09/21/15 Reported Zocor (Simvastatin) 10 Mg Tablet 1 Tab PO QHS 09/21/15 Reported Impression . DICTATED RESP FAILURE AECOPD AGREE WITH CURRENT RX THANKS SCOTT COOK MD Jan 06, 2017 17:37
[2017-01-06 19:00] VITALS: BP 124/70
[2017-01-06] MEDS: SIMVASTATIN 10 MG TABLET PO SCH (20:44)
[2017-01-06] MEDS: LACTOBACILLUS RHAMNOSUS GG 1 CAPSULE. PO SCH (20:44)
[2017-01-06] MEDS ORDERED: NON FORMULARY ITEM (Budesonide/Formoterol Fumarate (Symbicort 160-4.5 Mcg Inhaler) 2 PUFF) IH SCH (21:00)
--- NOTE | 2017-01-06 21:10 | CONS ---
DATE OF CONSULTATION: 01/06/2017 ATTENDING PHYSICIAN: Dr. Craft. REASON FOR CONSULTATION: The patient seen in Pulmonary consultation at the request of Dr. Craft for increasing shortness of air. 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 No fever, chills or night sweats. 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 He has been advised to seek consultation at [facility] for the possibility of bilateral lung transplant. He quit tobacco in 2014. He denies any sick contacts. No inhalation of any toxic fumes or dust. He is up to date on his flu and pneumonia vaccination. PAST MEDICAL HISTORY: Chronic respiratory failure, chronic obstructive pulmonary disease of the emphysematous type, hypertension, hyperlipidemia, osteoarthritis. PAST SURGICAL HISTORY: Hernia repair. FAMILY HISTORY: No family history of early lung disorders or emphysema. REVIEW OF SYSTEMS: CONSTITUTIONAL: No fever or chills. EYES: No changes in visual acuity. HENT: No nasal congestion, no sore throat. PULMONARY: As indicated above. CARDIOVASCULAR: No chest pain or pressure. GASTROINTESTINAL: No nausea, vomiting, diarrhea. GENITOURINARY: No urinary frequency or burning. NEUROLOGIC: No headaches, diplopia or blurred vision. SKIN: No new skin lesions. CURRENT MEDICATIONS: List was reviewed. ALLERGIES: METHYLPREDNISOLONE. PHYSICAL EXAMINATION: VITAL SIGNS: The patient was in no respiratory distress, currently on 2 L of oxygen supplementation, saturation greater than 92%. HEENT: Eyes, the sclerae were nonicteric. NECK: Jugular venous distention was not elevated. No lymphadenopathy. CHEST: Full expansion. LUNGS: Very poor airway flow with no wheezes. CARDIOVASCULAR: Regular rate and rhythm with S1, S2, no S3. ABDOMEN: Soft, nontender, nondistended. EXTREMITIES: No clubbing, cyanosis or pitting edema. NEUROLOGIC: The patient was awake, alert, following commands. A detailed neuro exam was not performed. LABORATORY DATA: White count was normal. Hemoglobin and hematocrit noted. Potassium was 2.9. Chest x-ray revealed no acute cardiopulmonary process. IMPRESSION: 1. Acute on chronic respiratory failure secondary to acute exacerbation of chronic obstructive pulmonary disease. 2. Acute exacerbation of chronic obstructive pulmonary disease. 3. Nonspecific bronchitis. 4. Hypokalemia. 5. Tobacco dependent, in remission. PLAN: 1. Recommend continued oxygen supplementation. 2. Nebulized treatments. 3. Pulmicort. 4. Prednisone. 5. Zithromax. 6. The patient instructed on continued followup at [facility] for the possibility of lung transplant. I do appreciate the privilege in sharing in the patient's care. SCOTT COOK MD DR: MAVERICK/efrain JOB#: [id number] / [id number]
[2017-01-06 23:03] VITALS: BP 125/81
[2017-01-07 03:00] VITALS: BP 121/78
[2017-01-07 06:05] LABS: BASO % 0 % (0-3); EOS % 0 % (0-3); HEMATOCRIT 43.2 % (39.0-53.0); HEMOGLOBIN 14.7 g/dL (13.0-17.5); LYMPH # 0.4 x10^3/uL (1.0-4.8); LYMPH % 3 % (24-48); MEAN CORPUSCULAR HEMOGLOBIN 32 pg (25-35); MEAN CORPUSCULAR HGB CONC 34 g/dL (31-37); MEAN CORPUSCULAR VOLUME 95 fL (79-100); MONO % 6 % (0-9); NEUT % 91 % (31-73); PLATELET COUNT 154 x10^3/uL (140-400); RED BLOOD COUNT 4.57 x10^6/uL (4.30-5.70); RED CELL DISTRIBUTION WIDTH 13.4 % (11.5-14.5); WHITE BLOOD COUNT 10.5 x10^3/uL (4.0-11.0)
[2017-01-07 06:12] LABS: CREATININE 0.8 mg/dL (0.7-1.3); GFR 120.6; POTASSIUM 3.7 mmol/L (3.5-5.1)
[2017-01-07 07:00] VITALS: BP 117/83
[2017-01-07] MEDS: IPRATRPIUM/ALBUTEROL 0.5/2.5MG 3 ML NEBU. NEB SCH ×4 (07:52→19:44)
[2017-01-07] MEDS: BUDESONIDE 0.5 MG/2 ML NEBU. NEB SCH ×2 (07:52→19:44)
[2017-01-07 07:58] LABS: PLT ESTIMATE ADEQUATE (ADEQUATE)
[2017-01-07] MEDS: LACTOBACILLUS RHAMNOSUS GG 1 CAPSULE. PO SCH ×2 (08:10→20:49)
[2017-01-07] MEDS: AZITHROMYCIN 250 MG TABLET. PO SCH (08:10)
[2017-01-07] MEDS: predniSONE 10 MG TABLET PO SCH (08:10)
[2017-01-07] MEDS: guaiFENesin DM 200MG/20MG 10 ML SYRUP PO PRN ×2 (08:10→17:18)
[2017-01-07] MEDS: hydroCHLOROthiazide 25 MG TABLET PO SCH ×2 (08:10→20:50)
--- NOTE | 2017-01-07 08:10 | PDOC ---
PULMONARY PROGRESS NOTES Subjective PT FEELS BETTER Vitals Vital Signs Date Time Temp Pulse Resp B/P (MAP) Pulse Ox O2 Delivery O2 Flow Rate FiO2 01/07/17 07:54 99 Nasal Cannula 3.0 01/07/17 03:00 97.9 79 18 121/78 (92) 97.9 ROS: No Nausea, No Chest Pain, No Abdominal Pain, No Increase Cough General: Alert HEENT: Other Lungs: Clear Cardiovascular: S1, S2 Abdomen: Soft, Non-tender Neuro Exam: Alert Extremities: No Edema, Other Skin: Warm Labs Laboratory Tests Test 01/06/17 02:30 01/06/17 09:45 01/06/17 13:00 01/06/17 15:44 White Blood Count 5.4 x10^3/uL (4.0-11.0) Red Blood Count 4.56 x10^6/uL (4.30-5.70) Hemoglobin 14.7 g/dL (13.0-17.5) Hematocrit 43.4 % (39.0-53.0) Mean Corpuscular Volume 95 fL (79-100) Mean Corpuscular Hemoglobin 32 pg (25-35) Mean Corpuscular Hemoglobin Concent 34 g/dL (31-37) Red Cell Distribution Width 13.3 % (11.5-14.5) Platelet Count 133 x10^3/uL (140-400) Neutrophils (%) (Auto) 76 % (31-73) Lymphocytes (%) (Auto) 12 % (24-48) Monocytes (%) (Auto) 10 % (0-9) Eosinophils (%) (Auto) 2 % (0-3) Basophils (%) (Auto) 1 % (0-3) Neutrophils # (Auto) 4.1 x10^3uL (1.8-7.7) Lymphocytes # (Auto) 0.6 x10^3/uL (1.0-4.8) Monocytes # (Auto) 0.5 x10^3/uL (0.0-1.1) Eosinophils # (Auto) 0.1 x10^3/uL (0.0-0.7) Basophils # (Auto) 0.0 x10^3/uL (0.0-0.2) Prothrombin Time 11.7 SEC (11.7-14.0) Prothromb Time International Ratio 0.9 (0.8-1.1) Sodium Level 142 mmol/L (136-145) Potassium Level 2.9 mmol/L (3.5-5.1) 4.5 mmol/L (3.5-5.1) Chloride Level 102 mmol/L (98-107) Carbon Dioxide Level 35 mmol/L (21-32) Anion Gap 5 (6-14) Blood Urea Nitrogen 14 mg/dL (8-26) Creatinine 1.2 mg/dL (0.7-1.3) Estimated GFR (Cockcroft-Gault) 75.5 Glucose Level 83 mg/dL (70-99) Calcium Level 8.3 mg/dL (8.5-10.1) Magnesium Level 1.5 mg/dL (1.8-2.4) Total Bilirubin 1.1 mg/dL (0.2-1.0) Direct Bilirubin 0.4 mg/dL (0.0-0.2) Aspartate Amino Transf (AST/SGOT) 24 U/L (15-37) Alanine Aminotransferase (ALT/SGPT) 49 U/L (16-63) Alkaline Phosphatase 58 U/L (46-116) Creatine Kinase 221 U/L (39-308) Creatine Kinase MB (Mass) 2.4 ng/mL (0.0-3.6) Creatine Kinase MB Relative Index 1.1 % (0-4) Troponin I Quantitative 0.045 ng/mL (0.000-0.055) 0.041 ng/mL (0.000-0.055) 0.023 ng/mL (0.000-0.055) XR-Tmb-[id number]-Type Natriuretic Peptide 61 pg/mL (0-124) Total Protein 6.3 g/dL (6.4-8.2) Albumin 3.6 g/dL (3.4-5.0) Test 01/07/17 05:20 White Blood Count 10.5 x10^3/uL (4.0-11.0) Red Blood Count 4.57 x10^6/uL (4.30-5.70) Hemoglobin 14.7 g/dL (13.0-17.5) Hematocrit 43.2 % (39.0-53.0) Mean Corpuscular Volume 95 fL (79-100) Mean Corpuscular Hemoglobin 32 pg (25-35) Mean Corpuscular Hemoglobin Concent 34 g/dL (31-37) Red Cell Distribution Width 13.4 % (11.5-14.5) Platelet Count 154 x10^3/uL (140-400) Neutrophils (%) (Auto) 91 % (31-73) Lymphocytes (%) (Auto) 3 % (24-48) Monocytes (%) (Auto) 6 % (0-9) Eosinophils (%) (Auto) 0 % (0-3) Basophils (%) (Auto) 0 % (0-3) Neutrophils # (Auto) 9.5 x10^3uL (1.8-7.7) Lymphocytes # (Auto) 0.4 x10^3/uL (1.0-4.8) Monocytes # (Auto) 0.6 x10^3/uL (0.0-1.1) Eosinophils # (Auto) 0.0 x10^3/uL (0.0-0.7) Basophils # (Auto) 0.0 x10^3/uL (0.0-0.2) Segmented Neutrophils % 87 % (35-66) Band Neutrophils % 2 % (0-9) Lymphocytes % 3 % (24-48) Monocytes % 8 % (0-10) Platelet Estimate Adequate (ADEQUATE) Sodium Level 139 mmol/L (136-145) Potassium Level 3.7 mmol/L (3.5-5.1) Chloride Level 103 mmol/L (98-107) Carbon Dioxide Level 31 mmol/L (21-32) Anion Gap 5 (6-14) Blood Urea Nitrogen 17 mg/dL (8-26) Creatinine 0.8 mg/dL (0.7-1.3) Estimated GFR (Cockcroft-Gault) 120.6 Glucose Level 113 mg/dL (70-99) Calcium Level 9.0 mg/dL (8.5-10.1) Laboratory Tests Test 01/06/17 09:45 01/06/17 13:00 01/06/17 15:44 01/07/17 05:20 Troponin I Quantitative 0.041 ng/mL (0.000-0.055) 0.023 ng/mL (0.000-0.055) Potassium Level 4.5 mmol/L (3.5-5.1) 3.7 mmol/L (3.5-5.1) White Blood Count 10.5 x10^3/uL (4.0-11.0) Red Blood Count 4.57 x10^6/uL (4.30-5.70) Hemoglobin 14.7 g/dL (13.0-17.5) Hematocrit 43.2 % (39.0-53.0) Mean Corpuscular Volume 95 fL (79-100) Mean Corpuscular Hemoglobin 32 pg (25-35) Mean Corpuscular Hemoglobin Concent 34 g/dL (31-37) Red Cell Distribution Width 13.4 % (11.5-14.5) Platelet Count 154 x10^3/uL (140-400) Neutrophils (%) (Auto) 91 % (31-73) Lymphocytes (%) (Auto) 3 % (24-48) Monocytes (%) (Auto) 6 % (0-9) Eosinophils (%) (Auto) 0 % (0-3) Basophils (%) (Auto) 0 % (0-3) Neutrophils # (Auto) 9.5 x10^3uL (1.8-7.7) Lymphocytes # (Auto) 0.4 x10^3/uL (1.0-4.8) Monocytes # (Auto) 0.6 x10^3/uL (0.0-1.1) Eosinophils # (Auto) 0.0 x10^3/uL (0.0-0.7) Basophils # (Auto) 0.0 x10^3/uL (0.0-0.2) Segmented Neutrophils % 87 % (35-66) Band Neutrophils % 2 % (0-9) Lymphocytes % 3 % (24-48) Monocytes % 8 % (0-10) Platelet Estimate Adequate (ADEQUATE) Sodium Level 139 mmol/L (136-145) Chloride Level 103 mmol/L (98-107) Carbon Dioxide Level 31 mmol/L (21-32) Anion Gap 5 (6-14) Blood Urea Nitrogen 17 mg/dL (8-26) Creatinine 0.8 mg/dL (0.7-1.3) Estimated GFR (Cockcroft-Gault) 120.6 Glucose Level 113 mg/dL (70-99) Calcium Level 9.0 mg/dL (8.5-10.1) Medications Active Scripts Medications Dose Route/Sig Max Daily Dose Days Date Category Dose Instructions Prednisone 50 Mg Tablet 1 Tab PO DAILY 12/17/16 Rx Azithromycin Tablet (Azithromycin) 250 Mg Tablet 1 Pkg PO UD 12/17/16 Rx Prednisone 10 Mg Tablet 10 Mg PO SEE INSTRUCTIONS 08/07/16 Rx Take 50 mg (5 pills) daily for 5 days, then take 40 mg (4 pills) daily for 4 days, then take 30 mg (3 pills) daily for 3 days, then take 20 mg (2 pills) daily for 2 days, then take 10 mg on last day. Prednisone 10 Mg Tablet 10 Mg PO UD 03/27/16 Rx Hydrochlorothiazide Tablet (Hydrochlorothiazide) 50 Mg Tablet 25 Mg PO DAILY 03/24/16 Reported Proair Hfa Inhaler (Albuterol Sulfate) 8.5 Gm Hfa.aer.ad 2 Puff INH Q4HRS PRN 02/09/16 Rx Prednisone 20 Mg Tablet 20 Mg PO DAILY 5 10/30/15 Rx Symbicort 160-4.5 Mcg Inhaler (Budesonide/Formoterol Fumarate) 10.2 Gm Hfa.aer.ad 2 Puff IH BID 09/21/15 Reported Spiriva (Tiotropium [place]) 18 Mcg Cap.w.dev 2 Inh IH DAILY 09/21/15 Reported Zocor (Simvastatin) 10 Mg Tablet 1 Tab PO QHS 09/21/15 Reported Impression . 1. Acute on chronic respiratory failure secondary to acute exacerbation of chronic obstructive pulmonary disease. 2. Acute exacerbation of chronic obstructive pulmonary disease. 3. Nonspecific bronchitis. 4. Hypokalemia. 5. Tobacco dependent, in remission. Plan . PT IMPROVING D/C IN AM OK FOLLOW UP AT [facility] 1. Recommend continued oxygen supplementation. 2. Nebulized treatments. 3. Pulmicort. 4. Prednisone. 5. Zithromax. 6. The patient instructed on continued followup at [place] for the possibility of lung transplant. SCOTT COOK MD Jan 07, 2017 08:10
[2017-01-07] MEDS ORDERED: NON FORMULARY ITEM (Tiotropium Bromide (Spiriva) 2 INH) IH SCH (09:00)
[2017-01-07 11:10] VITALS: BP 130/71
[2017-01-07] MEDS ORDERED: traMADol 50 MG TABLET PO PRN (12:45)
--- NOTE | 2017-01-07 13:26 | PDOC ---
PROGRESS NOTES Chief Complaint Chief Complaint 1. COPD exacerb, emphysematous type 2. Ex smoker, quit 2014 3, Critical hYPOKAlemia (no GI loss), resolved 4. Thrombocytopenia, mild 133 History of Present Illness History of Present Illness Requests 1 more night to stay Scheduled to go to [place], [place] sunday to lung transplant ctr to have him evaluated for lung transplant K has corrected ( was low) All on PO meds, PO azithromycin PLAN Dc tmr Vitals Vitals Vital Signs Date Time Temp Pulse Resp B/P (MAP) Pulse Ox O2 Delivery O2 Flow Rate FiO2 01/07/17 12:50 Room Air 01/07/17 12:00 3.0 01/07/17 11:10 97.7 105 18 130/71 (90) 95 97.7 Physical Exam General: Alert Lungs: Clear Abdomen: Normal bowel sounds, Soft, No tenderness, No hepatosplenomegaly, No masses Extremities: No clubbing, No cyanosis, No edema, Normal pulses, No tenderness/ swelling Skin: No rashes, No breakdown, No significant lesion Labs LABS Laboratory Tests Test 01/06/17 15:44 01/07/17 05:20 Troponin I Quantitative 0.023 ng/mL (0.000-0.055) White Blood Count 10.5 x10^3/uL (4.0-11.0) Red Blood Count 4.57 x10^6/uL (4.30-5.70) Hemoglobin 14.7 g/dL (13.0-17.5) Hematocrit 43.2 % (39.0-53.0) Mean Corpuscular Volume 95 fL (79-100) Mean Corpuscular Hemoglobin 32 pg (25-35) Mean Corpuscular Hemoglobin Concent 34 g/dL (31-37) Red Cell Distribution Width 13.4 % (11.5-14.5) Platelet Count 154 x10^3/uL (140-400) Neutrophils (%) (Auto) 91 % (31-73) Lymphocytes (%) (Auto) 3 % (24-48) Monocytes (%) (Auto) 6 % (0-9) Eosinophils (%) (Auto) 0 % (0-3) Basophils (%) (Auto) 0 % (0-3) Neutrophils # (Auto) 9.5 x10^3uL (1.8-7.7) Lymphocytes # (Auto) 0.4 x10^3/uL (1.0-4.8) Monocytes # (Auto) 0.6 x10^3/uL (0.0-1.1) Eosinophils # (Auto) 0.0 x10^3/uL (0.0-0.7) Basophils # (Auto) 0.0 x10^3/uL (0.0-0.2) Segmented Neutrophils % 87 % (35-66) Band Neutrophils % 2 % (0-9) Lymphocytes % 3 % (24-48) Monocytes % 8 % (0-10) Platelet Estimate Adequate (ADEQUATE) Sodium Level 139 mmol/L (136-145) Potassium Level 3.7 mmol/L (3.5-5.1) Chloride Level 103 mmol/L (98-107) Carbon Dioxide Level 31 mmol/L (21-32) Anion Gap 5 (6-14) Blood Urea Nitrogen 17 mg/dL (8-26) Creatinine 0.8 mg/dL (0.7-1.3) Estimated GFR (Cockcroft-Gault) 120.6 Glucose Level 113 mg/dL (70-99) Calcium Level 9.0 mg/dL (8.5-10.1) Review of Systems Review of Systems no soa, cp, abd pain, emesis Assessment and Plan Assessmemt and Plan Problems Medical Problems: (1) COPD with exacerbation Status: Acute Problems: Comment Review of Relevant I have reviewed the following items franki (where applicable) has been applied. Labs Laboratory Tests Test 01/06/17 02:30 01/06/17 09:45 01/06/17 13:00 01/06/17 15:44 White Blood Count 5.4 x10^3/uL (4.0-11.0) Red Blood Count 4.56 x10^6/uL (4.30-5.70) Hemoglobin 14.7 g/dL (13.0-17.5) Hematocrit 43.4 % (39.0-53.0) Mean Corpuscular Volume 95 fL (79-100) Mean Corpuscular Hemoglobin 32 pg (25-35) Mean Corpuscular Hemoglobin Concent 34 g/dL (31-37) Red Cell Distribution Width 13.3 % (11.5-14.5) Platelet Count 133 x10^3/uL (140-400) Neutrophils (%) (Auto) 76 % (31-73) Lymphocytes (%) (Auto) 12 % (24-48) Monocytes (%) (Auto) 10 % (0-9) Eosinophils (%) (Auto) 2 % (0-3) Basophils (%) (Auto) 1 % (0-3) Neutrophils # (Auto) 4.1 x10^3uL (1.8-7.7) Lymphocytes # (Auto) 0.6 x10^3/uL (1.0-4.8) Monocytes # (Auto) 0.5 x10^3/uL (0.0-1.1) Eosinophils # (Auto) 0.1 x10^3/uL (0.0-0.7) Basophils # (Auto) 0.0 x10^3/uL (0.0-0.2) Prothrombin Time 11.7 SEC (11.7-14.0) Prothromb Time International Ratio 0.9 (0.8-1.1) Sodium Level 142 mmol/L (136-145) Potassium Level 2.9 mmol/L (3.5-5.1) 4.5 mmol/L (3.5-5.1) Chloride Level 102 mmol/L (98-107) Carbon Dioxide Level 35 mmol/L (21-32) Anion Gap 5 (6-14) Blood Urea Nitrogen 14 mg/dL (8-26) Creatinine 1.2 mg/dL (0.7-1.3) Estimated GFR (Cockcroft-Gault) 75.5 Glucose Level 83 mg/dL (70-99) Calcium Level 8.3 mg/dL (8.5-10.1) Magnesium Level 1.5 mg/dL (1.8-2.4) Total Bilirubin 1.1 mg/dL (0.2-1.0) Direct Bilirubin 0.4 mg/dL (0.0-0.2) Aspartate Amino Transf (AST/SGOT) 24 U/L (15-37) Alanine Aminotransferase (ALT/SGPT) 49 U/L (16-63) Alkaline Phosphatase 58 U/L (46-116) Creatine Kinase 221 U/L (39-308) Creatine Kinase MB (Mass) 2.4 ng/mL (0.0-3.6) Creatine Kinase MB Relative Index 1.1 % (0-4) Troponin I Quantitative 0.045 ng/mL (0.000-0.055) 0.041 ng/mL (0.000-0.055) 0.023 ng/mL (0.000-0.055) VA-Dkj-[id number]-Type Natriuretic Peptide 61 pg/mL (0-124) Total Protein 6.3 g/dL (6.4-8.2) Albumin 3.6 g/dL (3.4-5.0) Test 01/07/17 05:20 White Blood Count 10.5 x10^3/uL (4.0-11.0) Red Blood Count 4.57 x10^6/uL (4.30-5.70) Hemoglobin 14.7 g/dL (13.0-17.5) Hematocrit 43.2 % (39.0-53.0) Mean Corpuscular Volume 95 fL (79-100) Mean Corpuscular Hemoglobin 32 pg (25-35) Mean Corpuscular Hemoglobin Concent 34 g/dL (31-37) Red Cell Distribution Width 13.4 % (11.5-14.5) Platelet Count 154 x10^3/uL (140-400) Neutrophils (%) (Auto) 91 % (31-73) Lymphocytes (%) (Auto) 3 % (24-48) Monocytes (%) (Auto) 6 % (0-9) Eosinophils (%) (Auto) 0 % (0-3) Basophils (%) (Auto) 0 % (0-3) Neutrophils # (Auto) 9.5 x10^3uL (1.8-7.7) Lymphocytes # (Auto) 0.4 x10^3/uL (1.0-4.8) Monocytes # (Auto) 0.6 x10^3/uL (0.0-1.1) Eosinophils # (Auto) 0.0 x10^3/uL (0.0-0.7) Basophils # (Auto) 0.0 x10^3/uL (0.0-0.2) Segmented Neutrophils % 87 % (35-66) Band Neutrophils % 2 % (0-9) Lymphocytes % 3 % (24-48) Monocytes % 8 % (0-10) Platelet Estimate Adequate (ADEQUATE) Sodium Level 139 mmol/L (136-145) Potassium Level 3.7 mmol/L (3.5-5.1) Chloride Level 103 mmol/L (98-107) Carbon Dioxide Level 31 mmol/L (21-32) Anion Gap 5 (6-14) Blood Urea Nitrogen 17 mg/dL (8-26) Creatinine 0.8 mg/dL (0.7-1.3) Estimated GFR (Cockcroft-Gault) 120.6 Glucose Level 113 mg/dL (70-99) Calcium Level 9.0 mg/dL (8.5-10.1) Laboratory Tests Test 01/06/17 15:44 01/07/17 05:20 Troponin I Quantitative 0.023 ng/mL (0.000-0.055) White Blood Count 10.5 x10^3/uL (4.0-11.0) Red Blood Count 4.57 x10^6/uL (4.30-5.70) Hemoglobin 14.7 g/dL (13.0-17.5) Hematocrit 43.2 % (39.0-53.0) Mean Corpuscular Volume 95 fL (79-100) Mean Corpuscular Hemoglobin 32 pg (25-35) Mean Corpuscular Hemoglobin Concent 34 g/dL (31-37) Red Cell Distribution Width 13.4 % (11.5-14.5) Platelet Count 154 x10^3/uL (140-400) Neutrophils (%) (Auto) 91 % (31-73) Lymphocytes (%) (Auto) 3 % (24-48) Monocytes (%) (Auto) 6 % (0-9) Eosinophils (%) (Auto) 0 % (0-3) Basophils (%) (Auto) 0 % (0-3) Neutrophils # (Auto) 9.5 x10^3uL (1.8-7.7) Lymphocytes # (Auto) 0.4 x10^3/uL (1.0-4.8) Monocytes # (Auto) 0.6 x10^3/uL (0.0-1.1) Eosinophils # (Auto) 0.0 x10^3/uL (0.0-0.7) Basophils # (Auto) 0.0 x10^3/uL (0.0-0.2) Segmented Neutrophils % 87 % (35-66) Band Neutrophils % 2 % (0-9) Lymphocytes % 3 % (24-48) Monocytes % 8 % (0-10) Platelet Estimate Adequate (ADEQUATE) Sodium Level 139 mmol/L (136-145) Potassium Level 3.7 mmol/L (3.5-5.1) Chloride Level 103 mmol/L (98-107) Carbon Dioxide Level 31 mmol/L (21-32) Anion Gap 5 (6-14) Blood Urea Nitrogen 17 mg/dL (8-26) Creatinine 0.8 mg/dL (0.7-1.3) Estimated GFR (Cockcroft-Gault) 120.6 Glucose Level 113 mg/dL (70-99) Calcium Level 9.0 mg/dL (8.5-10.1) Medications Current Medications Albuterol/ Ipratropium (Duoneb) 3 ml 1X ONCE NEB Last administered on 02:32; Start 01/06/17 at 02:00; Stop 01/06/17 at 02:01; Status DC Albuterol/ Ipratropium (Duoneb) 3 ml 1X ONCE NEB Last administered on 02:53; Start 01/06/17 at 03:00; Stop 01/06/17 at 03:01; Status DC Azithromycin 250 ml @ 250 mls/hr 1X ONCE IV Last administered on 01/06/17 04:00; Start 01/06/17 at 04:00; Stop 01/06/17 at 04:59; Status DC Prednisone (Prednisone) 50 mg 1X ONCE PO Last administered on 01/06/17 04:00 ; Start 01/06/17 at 04:00; Stop 01/06/17 at 04:01; Status DC Potassium Chloride (Klor-Con) 40 meq 1X ONCE PO Last administered on 04:00; Start 01/06/17 at 04:00; Stop 01/06/17 at 04:01; Status DC Ondansetron HCl (Zofran) 4 mg PRN Q8HRS PRN IV NAUSEA/VOMITING; Start at 03:45; Stop 01/06/17 at 08:39; Status DC Albuterol/ Ipratropium (Duoneb) 3 ml RTQID NEB Last administered on 01/07/17 11:59; Start 01/06/17 at 08:00 Ondansetron HCl (Zofran) 4 mg PRN Q6HRS PRN IV NAUSEA/VOMITING; Start at 08:45; Stop 01/07/17 at 08:44; Status DC Guaifenesin (Robitussin Dm) 10 ml PRN Q6HRS PRN PO COUGH Last administered on 01/07/17 08:10; Start 01/06/17 at 08:45 Potassium Chloride (Klor-Con) 40 meq 1X ONCE PO Last administered on 09:27; Start 01/06/17 at 09:00; Stop 01/06/17 at 09:01; Status DC Magnesium Sulfate/ Dextrose 50 ml @ 25 mls/hr 1X ONCE IV Last administered on 01/06/17 09:28; Start 01/06/17 at 09:00; Stop 01/06/17 at 10:59; Status DC Azithromycin (Zithromax) 250 mg DAILY PO Last administered on 01/07/17 08:10 ; Start 01/06/17 at 11:00 Simvastatin (Zocor) 10 mg QHS PO Last administered on 01/06/17 20:44; Start 01/06/17 at 21:00 Non-Formulary Medication 2 puff Q4HRS PRN INH SHORTNESS OF BREATH; Start 01/06 at 10:15; Stop 01/06/17 at 10:37; Status DC Non-Formulary Medication 2 puff BID IH ; Start 01/06/17 at 21:00; Stop at 21:00; Status DC Hydrochlorothiazide (Hydrodiuril) 25 mg DAILY PO ; Start 01/06/17 at 11:00 Prednisone (Prednisone) 50 mg DAILY PO Last administered on 01/07/17 08:10; Start 01/06/17 at 11:00 Non-Formulary Medication 2 inh DAILY IH ; Start 01/07/17 at 09:00; Stop at 09:00; Status DC Albuterol Sulfate (Ventolin Neb Soln) 2.5 mg PRN Q4HRS PRN NEB SHORTNESS OF BREATH; Start 01/06/17 at 10:30 Albuterol/ Ipratropium (Duoneb) 3 ml RTQID NEB ; Start 01/06/17 at 12:00; Stop 01/06/17 at 12:00; Status DC Budesonide (Pulmicort) 0.5 mg RTBID NEB Last administered on 01/07/17 07:52; Start 01/06/17 at 11:00 Ibuprofen (Motrin) 600 mg PRN Q6HRS PRN PO INFLAMMATION; Start 01/06/17 at 11: 45 Acetaminophen (Tylenol) 500 mg PRN Q6HRS PRN PO MILD PAIN / TEMP Last administered on 01/06/17 12:13; Start 01/06/17 at 11:45 Lactobacillus Rhamnosus (Culturelle) 1 cap BID PO Last administered on 08:10; Start 01/06/17 at 21:00 Tramadol HCl (Ultram) 50 mg PRN Q6HRS PRN PO PAIN Last administered on 12:50; Start 01/07/17 at 12:45 Active Scripts Active Prednisone 50 Mg Tablet 1 Tab PO DAILY Azithromycin Tablet (Azithromycin) 250 Mg Tablet 1 Pkg PO UD Prednisone 10 Mg Tablet 10 Mg PO SEE INSTRUCTIONS Take 50 mg (5 pills) daily for 5 days, then take 40 mg (4 pills) daily for 4 days, then take 30 mg (3 pills) daily for 3 days, then take 20 mg (2 pills) daily for 2 days, then take 10 mg on last day. Prednisone 10 Mg Tablet 10 Mg PO UD Proair Hfa Inhaler (Albuterol Sulfate) 8.5 Gm Hfa.aer.ad 2 Puff INH Q4HRS PRN Prednisone 20 Mg Tablet 20 Mg PO DAILY 5 Days Reported Hydrochlorothiazide Tablet (Hydrochlorothiazide) 50 Mg Tablet 25 Mg PO DAILY Symbicort 160-4.5 Mcg Inhaler (Budesonide/Formoterol Fumarate) 10.2 Gm Hfa.aer.ad 2 Puff IH BID Spiriva (Tiotropium [place]) 18 Mcg Cap.w.dev 2 Inh IH DAILY Zocor (Simvastatin) 10 Mg Tablet 1 Tab PO QHS Vitals/I & O Vital Sign - Last 24 Hours 01/06/17 01/06/17 01/06/17 01/06/17 15:00 15:12 19:00 19:30 Temp 97.7 96.6 97.7 96.6 Pulse 89 92 Resp 19 20 B/P (MAP) 110/77 (88) 124/70 (88) Pulse Ox 90 94 93 97 O2 Delivery Room Air Nasal Cannula Room Air Nasal Cannula O2 Flow Rate 2.0 2.0 01/06/17 01/06/17 01/07/17 01/07/17 19:52 23:03 03:00 07:00 Temp 96.1 97.9 97.9 96.1 97.9 97.9 Pulse 78 79 87 Resp 18 18 18 B/P (MAP) 125/81 (96) 121/78 (92) 117/83 (94) Pulse Ox 96 97 97 O2 Delivery Nasal Cannula Nasal Cannula Nasal Cannula Nasal Cannula O2 Flow Rate 2.0 3.0 3.0 3.0 01/07/17 01/07/17 01/07/17 01/07/17 07:54 08:00 11:10 12:00 Temp 97.7 97.7 Pulse 105 Resp 18 B/P (MAP) 130/71 (90) Pulse Ox 99 95 O2 Delivery Nasal Cannula Nasal Cannula Nasal Cannula Nasal Cannula O2 Flow Rate 3.0 2.0 3.0 3.0 01/07/17 12:50 O2 Delivery Room Air Intake and Output 01/06/17 01/06/17 01/07/17 15:00 23:00 07:00 Intake Total 762 ml 250 ml 960 ml Balance 762 ml 250 ml 960 ml RAI DURANT MD Jan 07, 2017 13:26
[2017-01-07 15:00] VITALS: BP 121/53
[2017-01-07] MEDS ORDERED: oxyCODONE/APAP 5/325 1 TAB TABLET PO PRN (16:45)
[2017-01-07] MEDS: HYDROcodone/APAP 10/325 1 TAB TABLET PO PRN (17:18)
[2017-01-07 19:00] VITALS: BP 118/80
[2017-01-07] MEDS: SIMVASTATIN 10 MG TABLET PO SCH (20:49)
[2017-01-07 23:00] VITALS: BP 150/89
[2017-01-08] MEDS: HYDROcodone/APAP 10/325 1 TAB TABLET PO PRN (01:26)
[2017-01-08 03:29] VITALS: BP 128/78
[2017-01-08 07:00] VITALS: BP 143/88
[2017-01-08] MEDS: IPRATRPIUM/ALBUTEROL 0.5/2.5MG 3 ML NEBU. NEB SCH (08:04)
[2017-01-08] MEDS: BUDESONIDE 0.5 MG/2 ML NEBU. NEB SCH (08:04)
[2017-01-08] MEDS: LACTOBACILLUS RHAMNOSUS GG 1 CAPSULE. PO SCH (08:18)
[2017-01-08] MEDS: hydroCHLOROthiazide 25 MG TABLET PO SCH (08:18)
[2017-01-08] MEDS: predniSONE 10 MG TABLET PO SCH (08:19)
[2017-01-08] MEDS: AZITHROMYCIN 250 MG TABLET. PO SCH (08:19)
--- NOTE | 2017-01-08 08:51 | PDOC3 ---
Discharge Summary Visit Information Date of Admission: Jan 06, 2017 Date of Discharge: Jan 08, 2017 Admitting Diagnosis Comment: 1. COPD exacerb, emphysematous type 2. Ex smoker, quit 2014 3, Critical hYPOKAlemia (no GI loss), resolved 4. Thrombocytopenia, mild 133 Final Diagnosis Problems Medical Problems: (1) COPD with exacerbation Status: Acute Brief Hospital Course Allergies Allergies Coded Allergies Type Severity Reaction Last Updated Verified methylprednisolone Adverse Reaction Severe Shortness of Air 02/08/16 Yes Vital Signs Vital Signs Date Time Temp Pulse Resp B/P (MAP) Pulse Ox O2 Delivery O2 Flow Rate FiO2 01/08/17 07:20 99 Nasal Cannula 3.0 01/08/17 07:00 97.5 73 18 143/88 (106) 97.5 Lab Results Laboratory Tests Test 01/06/17 09:45 01/06/17 13:00 01/06/17 15:44 01/07/17 05:20 Troponin I Quantitative 0.041 ng/mL (0.000-0.055) 0.023 ng/mL (0.000-0.055) Potassium Level 4.5 mmol/L (3.5-5.1) 3.7 mmol/L (3.5-5.1) White Blood Count 10.5 x10^3/uL (4.0-11.0) Red Blood Count 4.57 x10^6/uL (4.30-5.70) Hemoglobin 14.7 g/dL (13.0-17.5) Hematocrit 43.2 % (39.0-53.0) Mean Corpuscular Volume 95 fL (79-100) Mean Corpuscular Hemoglobin 32 pg (25-35) Mean Corpuscular Hemoglobin Concent 34 g/dL (31-37) Red Cell Distribution Width 13.4 % (11.5-14.5) Platelet Count 154 x10^3/uL (140-400) Neutrophils (%) (Auto) 91 % (31-73) Lymphocytes (%) (Auto) 3 % (24-48) Monocytes (%) (Auto) 6 % (0-9) Eosinophils (%) (Auto) 0 % (0-3) Basophils (%) (Auto) 0 % (0-3) Neutrophils # (Auto) 9.5 x10^3uL (1.8-7.7) Lymphocytes # (Auto) 0.4 x10^3/uL (1.0-4.8) Monocytes # (Auto) 0.6 x10^3/uL (0.0-1.1) Eosinophils # (Auto) 0.0 x10^3/uL (0.0-0.7) Basophils # (Auto) 0.0 x10^3/uL (0.0-0.2) Segmented Neutrophils % 87 % (35-66) Band Neutrophils % 2 % (0-9) Lymphocytes % 3 % (24-48) Monocytes % 8 % (0-10) Platelet Estimate Adequate (ADEQUATE) Sodium Level 139 mmol/L (136-145) Chloride Level 103 mmol/L (98-107) Carbon Dioxide Level 31 mmol/L (21-32) Anion Gap 5 (6-14) Blood Urea Nitrogen 17 mg/dL (8-26) Creatinine 0.8 mg/dL (0.7-1.3) Estimated GFR (Cockcroft-Gault) 120.6 Glucose Level 113 mg/dL (70-99) Calcium Level 9.0 mg/dL (8.5-10.1) Brief Hospital Course Mr. Nash is a 56 old AA male admitted for acute bronchitis, no PNA on CXR , on lung transplant eval list in [facility], Stayed 3 mN, co managed with pulmo, Ready for home, PO pred, zithromycin and percocet for back pain given to pt, Pt has ff up already Sunday for [place], [place], lung transplant team,. Ex smoker., Seen and examined Discharge Information Condition at Discharge: Improved, Stable Disposition/Orders: D/C to Home Scheduled Azithromycin (Azithromycin Tablet), 1 PKG PO UD Budesonide/Formoterol Fumarate (Symbicort 160-4.5 Mcg Inhaler), 2 PUFF IH BID, ( Reported) Hydrochlorothiazide (Hydrochlorothiazide Tablet), 25 MG PO DAILY, (Reported) Prednisone (Prednisone), 20 MG PO DAILY Prednisone (Prednisone), 10 MG PO UD Prednisone (Prednisone), 10 MG PO see instructions Prednisone (Prednisone), 1 TAB PO DAILY Simvastatin (Zocor), 1 TAB PO QHS, (Reported) Tiotropium [place] (Spiriva), 2 INH IH DAILY, (Reported) Scheduled PRN Albuterol Sulfate (Proair Hfa Inhaler), 2 PUFF INH Q4HRS PRN for SHORTNESS OF BREATH RAI DURANT MD Jan 08, 2017 08:51
--- NOTE | 2017-01-08 09:29 | PDOC ---
PULMONARY PROGRESS NOTES Subjective PT FEELS BETTER Vitals Vital Signs Date Time Temp Pulse Resp B/P (MAP) Pulse Ox O2 Delivery O2 Flow Rate FiO2 01/08/17 08:00 Nasal Cannula 2.0 01/08/17 07:20 99 01/08/17 07:00 97.5 73 18 143/88 (106) 97.5 ROS: No Nausea, No Chest Pain, No Abdominal Pain, No Increase Cough General: Alert HEENT: Other Lungs: Other (poor air entry) Cardiovascular: S1, S2 Abdomen: Soft, Non-tender Neuro Exam: Alert Extremities: No Edema, Other Skin: Warm Labs Laboratory Tests Test 01/06/17 09:45 01/06/17 13:00 01/06/17 15:44 01/07/17 05:20 Troponin I Quantitative 0.041 ng/mL (0.000-0.055) 0.023 ng/mL (0.000-0.055) Potassium Level 4.5 mmol/L (3.5-5.1) 3.7 mmol/L (3.5-5.1) White Blood Count 10.5 x10^3/uL (4.0-11.0) Red Blood Count 4.57 x10^6/uL (4.30-5.70) Hemoglobin 14.7 g/dL (13.0-17.5) Hematocrit 43.2 % (39.0-53.0) Mean Corpuscular Volume 95 fL (79-100) Mean Corpuscular Hemoglobin 32 pg (25-35) Mean Corpuscular Hemoglobin Concent 34 g/dL (31-37) Red Cell Distribution Width 13.4 % (11.5-14.5) Platelet Count 154 x10^3/uL (140-400) Neutrophils (%) (Auto) 91 % (31-73) Lymphocytes (%) (Auto) 3 % (24-48) Monocytes (%) (Auto) 6 % (0-9) Eosinophils (%) (Auto) 0 % (0-3) Basophils (%) (Auto) 0 % (0-3) Neutrophils # (Auto) 9.5 x10^3uL (1.8-7.7) Lymphocytes # (Auto) 0.4 x10^3/uL (1.0-4.8) Monocytes # (Auto) 0.6 x10^3/uL (0.0-1.1) Eosinophils # (Auto) 0.0 x10^3/uL (0.0-0.7) Basophils # (Auto) 0.0 x10^3/uL (0.0-0.2) Segmented Neutrophils % 87 % (35-66) Band Neutrophils % 2 % (0-9) Lymphocytes % 3 % (24-48) Monocytes % 8 % (0-10) Platelet Estimate Adequate (ADEQUATE) Sodium Level 139 mmol/L (136-145) Chloride Level 103 mmol/L (98-107) Carbon Dioxide Level 31 mmol/L (21-32) Anion Gap 5 (6-14) Blood Urea Nitrogen 17 mg/dL (8-26) Creatinine 0.8 mg/dL (0.7-1.3) Estimated GFR (Cockcroft-Gault) 120.6 Glucose Level 113 mg/dL (70-99) Calcium Level 9.0 mg/dL (8.5-10.1) Medications Active Scripts Medications Dose Route/Sig Max Daily Dose Days Date Category Dose Instructions Prednisone 50 Mg Tablet 1 Tab PO DAILY 12/17/16 Rx Azithromycin Tablet (Azithromycin) 250 Mg Tablet 1 Pkg PO UD 12/17/16 Rx Prednisone 10 Mg Tablet 10 Mg PO SEE INSTRUCTIONS 08/07/16 Rx Take 50 mg (5 pills) daily for 5 days, then take 40 mg (4 pills) daily for 4 days, then take 30 mg (3 pills) daily for 3 days, then take 20 mg (2 pills) daily for 2 days, then take 10 mg on last day. Prednisone 10 Mg Tablet 10 Mg PO UD 03/27/16 Rx Hydrochlorothiazide Tablet (Hydrochlorothiazide) 50 Mg Tablet 25 Mg PO DAILY 03/24/16 Reported Proair Hfa Inhaler (Albuterol Sulfate) 8.5 Gm Hfa.aer.ad 2 Puff INH Q4HRS PRN 02/09/16 Rx Prednisone 20 Mg Tablet 20 Mg PO DAILY 5 10/30/15 Rx Symbicort 160-4.5 Mcg Inhaler (Budesonide/Formoterol Fumarate) 10.2 Gm Hfa.aer.ad 2 Puff IH BID 09/21/15 Reported Spiriva (Tiotropium Sun[place]) 18 Mcg Cap.w.dev 2 Inh IH DAILY 09/21/15 Reported Zocor (Simvastatin) 10 Mg Tablet 1 Tab PO QHS 09/21/15 Reported Impression . 1. Acute on chronic respiratory failure secondary to acute exacerbation of chronic obstructive pulmonary disease. 2. Acute exacerbation of chronic obstructive pulmonary disease. 3. Nonspecific bronchitis. 4. Hypokalemia. 5. Tobacco dependent, in remission. Plan . 1. Recommend continued oxygen supplementation. 2. Nebulized treatments. 3. Pulmicort. 4. Prednisone. 5. Zithromax. 6. The patient instructed on continued followup at [facility] for the possibility of lung transplant.He sees pulmonary at [facility] Cerv[facility] MD Jan 08, 2017 09:29
== END 2017-01-08 09:22 | disposition home or self-care (01) | DRG 189 ==
LOC: ER 01:39 → 5 NORTH 03:13
PROVIDERS: ADMIT Internal Medicine; ATTEND Internal Medicine
DX: J96.20 Acute and chronic respiratory failure, unspecified whether with hypoxia or hypercapnia (principal); R65.11 Systemic inflammatory response syndrome (SIRS) of non-infectious origin with acute organ dysfunction; D69.6 Thrombocytopenia, unspecified; J44.0 Chronic obstructive pulmonary disease with (acute) lower respiratory infection; J44.1 Chronic obstructive pulmonary disease with (acute) exacerbation; I50.9 Heart failure, unspecified; I11.0 Hypertensive heart disease with heart failure; J20.9 Acute bronchitis, unspecified; E78.5 Hyperlipidemia, unspecified; E87.6 Hypokalemia; F17.201 Nicotine dependence, unspecified, in remission; Z82.49 Family history of ischemic heart disease and other diseases of the circulatory system; M19.90 Unspecified osteoarthritis, unspecified site; E78.00 Pure hypercholesterolemia, unspecified; Z88.8 Allergy status to other drugs, medicaments and biological substances
CPT/HCPCS: 36415; 71010; 80048; 80076; 82553; 83735; 83880; 84132; 84484; 85007; 85025; 85610; 93005; 94640; 94760; J0456; J7060; J7512; J7620; J7626; Q0144; 99285-25

== ENCOUNTER 2017-02-24 20:01 | Emergency (ER) | payer MEDICAID ==
[2017-02-24 20:32] LABS: ADD MAN DIFF? NO
[2017-02-24 20:36] LABS: BASO % 1 % (0-3); EOS # 0.2 x10^3/uL (0.0-0.7); EOS % 3 % (0-3); HEMOGLOBIN 14.8 g/dL (13.0-17.5); LYMPH # 0.6 x10^3/uL (1.0-4.8); LYMPH % 12 % (24-48); MEAN CORPUSCULAR HEMOGLOBIN 32 pg (25-35); MEAN CORPUSCULAR HGB CONC 34 g/dL (31-37); MEAN CORPUSCULAR VOLUME 94 fL (79-100); MONO # 0.4 x10^3/uL (0.0-1.1); MONO % 8 % (0-9); NEUT # 3.5 x10^3uL (1.8-7.7); NEUT % 76 % (31-73); PLATELET COUNT 174 x10^3/uL (140-400); RED BLOOD COUNT 4.68 x10^6/uL (4.30-5.70); WHITE BLOOD COUNT 4.6 x10^3/uL (4.0-11.0)
[2017-02-24] MEDS: IPRATRPIUM/ALBUTEROL 0.5/2.5MG 3 ML NEBU. NEB (20:44)
[2017-02-24 20:49] LABS: ANION GAP 8 (6-14); BLOOD UREA NITROGEN 13 mg/dL (8-26); CALCIUM 8.4 mg/dL (8.5-10.1); CARBON DIOXIDE 32 mmol/L (21-32); CHLORIDE 105 mmol/L (98-107); CREATININE 0.9 mg/dL (0.7-1.3); GFR 105.2; GLUCOSE 105 mg/dL (70-99); POTASSIUM 3.8 mmol/L (3.5-5.1); SODIUM 145 mmol/L (136-145)
[2017-02-24 20:54] LABS: ALBUMIN 3.1 g/dL (3.4-5.0); ALK PHOS 72 U/L (46-116); ALT (SGPT) 29 U/L (16-63); AST (SGOT) 26 U/L (15-37); DIRECT BILIRUBIN 0.2 mg/dL (0.0-0.2); LIPASE 159 U/L (73-393); TOTAL BILIRUBIN 0.7 mg/dL (0.2-1.0); TOTAL PROTEIN 6.3 g/dL (6.4-8.2)
[2017-02-24 20:59] LABS: TROPONINI < 0.017 ng/mL (0.000-0.055)
[2017-02-24 21:00] LABS: NT-PRO BNP 33 pg/mL (0-124)
[2017-02-24] MEDS: HYDROcodone/APAP 5/325MG 1 TAB TABLET PO (21:29)
== END 2017-02-24 22:32 | disposition home or self-care (01) ==
LOC: ER 20:01
DX: J44.1 Chronic obstructive pulmonary disease with (acute) exacerbation (principal); I11.0 Hypertensive heart disease with heart failure; I50.9 Heart failure, unspecified; E78.00 Pure hypercholesterolemia, unspecified; G89.29 Other chronic pain; Z88.8 Allergy status to other drugs, medicaments and biological substances
CPT/HCPCS: 36415; 71045; 80048; 80076; 83690; 83880; 84484; 85025; 93005; 94640; 99285-25; J7620

== ENCOUNTER 2017-03-07 16:13 | Emergency (ER) | payer MEDICAID ==
[2017-03-07 17:05] LABS: ADD MAN DIFF? NO
[2017-03-07 17:07] LABS: BASO % 0 % (0-3); EOS # 0.1 x10^3/uL (0.0-0.7); EOS % 1 % (0-3); HEMATOCRIT 46.3 % (39.0-53.0); HEMOGLOBIN 15.9 g/dL (13.0-17.5); LYMPH # 0.6 x10^3/uL (1.0-4.8); LYMPH % 12 % (24-48); MEAN CORPUSCULAR HEMOGLOBIN 32 pg (25-35); MEAN CORPUSCULAR HGB CONC 34 g/dL (31-37); MEAN CORPUSCULAR VOLUME 93 fL (79-100); MONO # 0.8 x10^3/uL (0.0-1.1); MONO % 15 % (0-9); NEUT # 3.8 x10^3uL (1.8-7.7); NEUT % 72 % (31-73); PLATELET COUNT 144 x10^3/uL (140-400); WHITE BLOOD COUNT 5.3 x10^3/uL (4.0-11.0)
[2017-03-07 17:29] LABS: TROPONINI < 0.017 ng/mL (0.000-0.055)
[2017-03-07 17:37] LABS: ALBUMIN 3.5 g/dL (3.4-5.0); ALK PHOS 72 U/L (46-116); ALT (SGPT) 20 U/L (16-63); ANION GAP 7 (6-14); AST (SGOT) 21 U/L (15-37); BLOOD UREA NITROGEN 13 mg/dL (8-26); BUN/CREATININE RATIO 12 (6-20); CALCIUM 8.9 mg/dL (8.5-10.1); CARBON DIOXIDE 33 mmol/L (21-32); CHLORIDE 101 mmol/L (98-107); CREATININE 1.1 mg/dL (0.7-1.3); GFR 83.5; GLUCOSE 100 mg/dL (70-99); SODIUM 141 mmol/L (136-145); TOTAL BILIRUBIN 1.9 mg/dL (0.2-1.0)
[2017-03-07] MEDS ORDERED: CONTRAST GIVEN MC (19:45)
[2017-03-07] MEDS: IOHEXOL 300 MG/ML 100ML VIAL. IV (19:53)
[2017-03-07] MEDS: ONDANSETRON PF 4 MG/2 ML VIAL. IV ×2 (20:30→20:37)
[2017-03-07] MEDS: HYDROmorphone 2 MG/ML VIAL IV ×2 (20:30→20:38)
[2017-03-07 20:39] LABS: BILIRUBIN,URINE NEGATIVE (NEG); CLARITY,URINE CLOUDY; COLOR,URINE YELLOW; GLUCOSE,URINE NEGATIVE (NEG); NITRITE,URINE NEGATIVE (NEG); PROTEIN,URINE NEGATIVE (NEG-TRACE)
[2017-03-07 20:47] LABS: BACTERIA,URINE 0 /HPF (0-FEW); RBC,URINE 0 /HPF (0-2); SQUAMOUS EPITHELIAL CELL,UR OCC /LPF; WBC,URINE 0 /HPF (0-4)
[2017-03-07] MEDS: predniSONE 10 MG TABLET PO (21:58)
[2017-03-07] MEDS: IPRATRPIUM/ALBUTEROL 0.5/2.5MG 3 ML NEBU. NEB (22:08)
== END 2017-03-07 22:32 | disposition home or self-care (01) ==
LOC: ER 16:13
DX: J44.1 Chronic obstructive pulmonary disease with (acute) exacerbation (principal); R07.9 Chest pain, unspecified; I11.0 Hypertensive heart disease with heart failure; I50.9 Heart failure, unspecified; E11.9 Type 2 diabetes mellitus without complications; E78.00 Pure hypercholesterolemia, unspecified; Z99.81 Dependence on supplemental oxygen; Z88.8 Allergy status to other drugs, medicaments and biological substances
CPT/HCPCS: 36415; 71045; 71275; 80053; 81001; 84484; 85025; 93005; 94640; 96374; 96375; 99285-25; J1170; J2405; J7512; J7620; Q9967

== ENCOUNTER 2017-04-21 22:44 | Emergency (ER) | payer MEDICAID ==
[2017-04-21] MEDS: predniSONE 20 MG TABLET PO (23:02)
[2017-04-21] MEDS: IPRATRPIUM/ALBUTEROL 0.5/2.5MG 3 ML NEBU. NEB (23:21)
[2017-04-22] MEDS: ACETAMINOPHEN/CODEINE 300/30MG TABLET. PO (00:21)
== END 2017-04-22 00:45 | disposition home or self-care (01) ==
LOC: ER 22:44
DX: J44.1 Chronic obstructive pulmonary disease with (acute) exacerbation (principal); E78.00 Pure hypercholesterolemia, unspecified; I11.0 Hypertensive heart disease with heart failure; I50.9 Heart failure, unspecified; Z87.891 Personal history of nicotine dependence; Z88.8 Allergy status to other drugs, medicaments and biological substances
CPT/HCPCS: 71046; 93005; 94640; 99284; J7512; J7620

== ENCOUNTER 2017-05-29 22:09 | Emergency (ER) | payer MEDICAID ==
[2017-05-29] MEDS: DEXAMETHASONE SOD PHOS 20 MG/5 ML VIAL. IV (23:14)
[2017-05-29 23:17] LABS: BASO % 0 % (0-3); EOS % 0 % (0-3); HEMOGLOBIN 13.7 g/dL (13.0-17.5); LYMPH # 0.3 x10^3/uL (1.0-4.8); LYMPH % 4 % (24-48); MEAN CORPUSCULAR HEMOGLOBIN 31 pg (25-35); MEAN CORPUSCULAR HGB CONC 34 g/dL (31-37); MEAN CORPUSCULAR VOLUME 92 fL (79-100); MONO # 0.5 x10^3/uL (0.0-1.1); MONO % 7 % (0-9); NEUT # 7.1 x10^3uL (1.8-7.7); NEUT % 89 % (31-73); PLATELET COUNT 147 x10^3/uL (140-400); RED BLOOD COUNT 4.37 x10^6/uL (4.30-5.70); RED CELL DISTRIBUTION WIDTH 14.5 % (11.5-14.5); WHITE BLOOD COUNT 7.9 x10^3/uL (4.0-11.0)
[2017-05-29 23:21] LABS: ADD MAN DIFF? YES
[2017-05-29 23:29] LABS: ANION GAP 6 (6-14); BLOOD UREA NITROGEN 18 mg/dL (8-26); CALCIUM 8.7 mg/dL (8.5-10.1); CARBON DIOXIDE 33 mmol/L (21-32); CHLORIDE 103 mmol/L (98-107); CREATININE 1.1 mg/dL (0.7-1.3); GFR 83.5; GLUCOSE 116 mg/dL (70-99); POTASSIUM 3.9 mmol/L (3.5-5.1); SODIUM 142 mmol/L (136-145)
[2017-05-29] MEDS: IPRATRPIUM/ALBUTEROL 0.5/2.5MG 3 ML NEBU. NEB (23:38)
[2017-05-29 23:39] LABS: TROPONINI < 0.017 ng/mL (0.000-0.055)
[2017-05-29 23:42] LABS: NT-PRO BNP 63 pg/mL (0-124)
[2017-05-30] MEDS: HYDROcodone/APAP 5/325MG 1 TAB TABLET PO (00:29)
[2017-05-30] MEDS: KETOROLAC 30 MG/ML INJ. IV (00:29)
[2017-05-30] MEDS: IPRATRPIUM/ALBUTEROL 0.5/2.5MG 3 ML NEBU. NEB (01:36)
[2017-05-30] MEDS: AZITHROMYCIN 250 MG TABLET. PO (01:48)
[2017-05-30 04:04] LABS: % ATYL 2 % (0-0); % BANDS 1 % (0-9); % EOS 1 % (0-5); % LYMPHS 2 % (24-48); % METAS 1 % (0-0); % MONOS 7 % (0-10); % SEGS 86 % (35-66)
[2017-05-30 04:09] LABS: PLT ESTIMATE ADEQUATE (ADEQUATE)
== END 2017-05-30 01:55 | disposition home or self-care (01) ==
LOC: ER 05-30 01:55
DX: J44.1 Chronic obstructive pulmonary disease with (acute) exacerbation (principal); E78.00 Pure hypercholesterolemia, unspecified; I11.0 Hypertensive heart disease with heart failure; I50.9 Heart failure, unspecified; Z87.891 Personal history of nicotine dependence; Z88.5 Allergy status to narcotic agent
CPT/HCPCS: 36415; 71045; 80048; 83880; 84484; 85007; 85025; 93005; 94640; 96374; 96375; 99285-25; J1100; J1885; J7620; Q0144

== ENCOUNTER 2017-07-09 23:53 | Emergency (ER) | payer MEDICAID ==
[2017-07-10 00:13] LABS: BASO % 0 % (0-3); EOS % 0 % (0-3); HEMATOCRIT 38.3 % (39.0-53.0); HEMOGLOBIN 13.2 g/dL (13.0-17.5); LYMPH # 0.2 x10^3/uL (1.0-4.8); LYMPH % 3 % (24-48); MEAN CORPUSCULAR HEMOGLOBIN 31 pg (25-35); MEAN CORPUSCULAR HGB CONC 34 g/dL (31-37); MEAN CORPUSCULAR VOLUME 91 fL (79-100); MONO # 0.2 x10^3/uL (0.0-1.1); MONO % 3 % (0-9); NEUT # 6.9 x10^3uL (1.8-7.7); NEUT % 94 % (31-73); PLATELET COUNT 147 x10^3/uL (140-400); RED BLOOD COUNT 4.21 x10^6/uL (4.30-5.70); RED CELL DISTRIBUTION WIDTH 14.7 % (11.5-14.5); WHITE BLOOD COUNT 7.4 x10^3/uL (4.0-11.0)
[2017-07-10] MEDS: IPRATRPIUM/ALBUTEROL 0.5/2.5MG 3 ML NEBU. NEB (00:13)
[2017-07-10 00:17] LABS: ADD MAN DIFF? YES
[2017-07-10 00:27] LABS: ANION GAP 10 (6-14); BLOOD UREA NITROGEN 12 mg/dL (8-26); BUN/CREATININE RATIO 10 (6-20); CALCIUM 8.4 mg/dL (8.5-10.1); CARBON DIOXIDE 30 mmol/L (21-32); CHLORIDE 104 mmol/L (98-107); CREATININE 1.2 mg/dL (0.7-1.3); GFR 75.2; GLUCOSE 167 mg/dL (70-99); POTASSIUM 3.2 mmol/L (3.5-5.1); SODIUM 144 mmol/L (136-145)
[2017-07-10] MEDS ORDERED: methylPREDNISolone SOD SUCC PF 125 MG/2 ML VIAL. IV (00:30)
[2017-07-10 00:33] LABS: ALBUMIN 3.4 g/dL (3.4-5.0); ALBUMIN/GLOBULIN RATIO 1.1 (1.0-1.7); ALK PHOS 80 U/L (46-116); ALT (SGPT) 32 U/L (16-63); AST (SGOT) 19 U/L (15-37); TOTAL BILIRUBIN 0.7 mg/dL (0.2-1.0); TOTAL PROTEIN 6.4 g/dL (6.4-8.2)
[2017-07-10 00:36] LABS: TROPONINI < 0.017 ng/mL (0.000-0.055)
[2017-07-10 00:39] LABS: NT-PRO BNP 76 pg/mL (0-124)
[2017-07-10] MEDS: predniSONE 20 MG TABLET PO (00:39)
[2017-07-10 04:26] LABS: % LYMPHS 7 % (24-48); % MONOS 2 % (0-10); % SEGS 91 % (35-66)
[2017-07-10 04:27] LABS: PLT ESTIMATE ADEQUATE (ADEQUATE)
== END 2017-07-10 02:15 | disposition home or self-care (01) ==
LOC: ER 23:53
DX: J44.1 Chronic obstructive pulmonary disease with (acute) exacerbation (principal); I11.0 Hypertensive heart disease with heart failure; I50.9 Heart failure, unspecified; Z79.899 Other long term (current) drug therapy; Z88.8 Allergy status to other drugs, medicaments and biological substances
CPT/HCPCS: 36415; 71045; 80053; 83880; 84484; 85007; 85025; 93005; 94640; 99285; J7512; J7620

== ENCOUNTER 2017-07-18 20:22 | Emergency (ER) | payer MEDICAID ==
[2017-07-18] MEDS: IPRATRPIUM/ALBUTEROL 0.5/2.5MG 3 ML NEBU. NEB (20:45)
[2017-07-18] MEDS: predniSONE 20 MG TABLET PO (21:03)
[2017-07-18 21:41] LABS: ADD MAN DIFF? YES; BASO # 0.2 x10^3/uL (0.0-0.2); BASO % 0 % (0-3); EOS # 0.2 x10^3/uL (0.0-0.7); EOS % 0 % (0-3); HEMATOCRIT 40.3 % (39.0-53.0); HEMOGLOBIN 13.9 g/dL (13.0-17.5); LYMPH # 0.2 x10^3/uL (1.0-4.8); LYMPH % 3 % (24-48); MEAN CORPUSCULAR HEMOGLOBIN 32 pg (25-35); MEAN CORPUSCULAR HGB CONC 35 g/dL (31-37); MEAN CORPUSCULAR VOLUME 91 fL (79-100); MONO # 0.3 x10^3/uL (0.0-1.1); MONO % 4 % (0-9); NEUT # 6.6 x10^3uL (1.8-7.7); NEUT % 92 % (31-73); PLATELET COUNT 163 x10^3/uL (140-400); RED CELL DISTRIBUTION WIDTH 14.7 % (11.5-14.5); WHITE BLOOD COUNT 7.2 x10^3/uL (4.0-11.0)
[2017-07-18 21:42] LABS: % LYMPHS 6 % (24-48); % MONOS 5 % (0-10); % SEGS 89 % (35-66); PLT ESTIMATE ADEQUATE (ADEQUATE)
[2017-07-18 21:50] LABS: ALBUMIN 3.6 g/dL (3.4-5.0); ALK PHOS 76 U/L (46-116); ALT (SGPT) 33 U/L (16-63); ANION GAP 10 (6-14); AST (SGOT) 26 U/L (15-37); BLOOD UREA NITROGEN 12 mg/dL (8-26); BUN/CREATININE RATIO 11 (6-20); CALCIUM 9.3 mg/dL (8.5-10.1); CARBON DIOXIDE 30 mmol/L (21-32); CHLORIDE 102 mmol/L (98-107); CREATININE 1.1 mg/dL (0.7-1.3); GFR 83.2; GLUCOSE 137 mg/dL (70-99); POTASSIUM 3.5 mmol/L (3.5-5.1); SODIUM 142 mmol/L (136-145); TOTAL BILIRUBIN 0.8 mg/dL (0.2-1.0); TOTAL PROTEIN 7.1 g/dL (6.4-8.2)
[2017-07-18 21:51] LABS: TROPONINI < 0.017 ng/mL (0.000-0.055)
[2017-07-18 21:52] LABS: NT-PRO BNP 44 pg/mL (0-124)
== END 2017-07-18 22:18 | disposition home or self-care (01) ==
LOC: ER 20:22
DX: J44.1 Chronic obstructive pulmonary disease with (acute) exacerbation (principal); I11.0 Hypertensive heart disease with heart failure; I50.9 Heart failure, unspecified; Z99.81 Dependence on supplemental oxygen
CPT/HCPCS: 36415; 80053; 83880; 84484; 85007; 85025; 94640; 99283; 99284; J7512; J7620

== ENCOUNTER 2017-08-20 21:30 | Inpatient (IN) | payer MEDICAID ==
[2017-08-20 22:57] LABS: ADD MAN DIFF? NO
[2017-08-20 23:01] LABS: BASO % 1 % (0-3); EOS # 0.1 x10^3/uL (0.0-0.7); EOS % 1 % (0-3); HEMATOCRIT 42.7 % (39.0-53.0); HEMOGLOBIN 14.6 g/dL (13.0-17.5); LYMPH # 0.4 x10^3/uL (1.0-4.8); LYMPH % 9 % (24-48); MEAN CORPUSCULAR HEMOGLOBIN 32 pg (25-35); MEAN CORPUSCULAR HGB CONC 34 g/dL (31-37); MEAN CORPUSCULAR VOLUME 93 fL (79-100); MONO # 0.4 x10^3/uL (0.0-1.1); MONO % 8 % (0-9); NEUT # 3.7 x10^3uL (1.8-7.7); NEUT % 81 % (31-73); PLATELET COUNT 130 x10^3/uL (140-400); RED BLOOD COUNT 4.59 x10^6/uL (4.30-5.70); RED CELL DISTRIBUTION WIDTH 14.6 % (11.5-14.5); WHITE BLOOD COUNT 4.6 x10^3/uL (4.0-11.0)
[2017-08-20 23:13] LABS: ANION GAP 4 (6-14); BLOOD UREA NITROGEN 11 mg/dL (8-26); CALCIUM 8.2 mg/dL (8.5-10.1); CARBON DIOXIDE 32 mmol/L (21-32); CHLORIDE 106 mmol/L (98-107); CREATININE 1.5 mg/dL (0.7-1.3); GFR 58.2; GLUCOSE 109 mg/dL (70-99); POTASSIUM 3.6 mmol/L (3.5-5.1); SODIUM 142 mmol/L (136-145)
[2017-08-20 23:14] LABS: MAGNESIUM 1.7 mg/dL (1.8-2.4)
[2017-08-20 23:20] LABS: TROPONINI 0.034 ng/mL (0.000-0.055)
[2017-08-20 23:26] LABS: THYROID STIM HORMONE (TSH) 0.557 uIU/mL (0.358-3.74)
[2017-08-20 23:28] LABS: NT-PRO BNP 77 pg/mL (0-124)
[2017-08-20 23:28] LABS: CKMB INDEX 0.5 % (0-4); CKMB MASS 4.3 ng/mL (0.0-3.6); CREATINE KINASE 818 U/L (39-308)
[2017-08-20] MEDS: predniSONE 20 MG TABLET PO (23:40)
[2017-08-20] MEDS: PIPERACILLIN/TAZOBACTAM 3.375 GM in IV NORMAL SALINE 50ML 50 ML IV (23:40)
[2017-08-20] MEDS: IBUPROFEN 800 MG TABLET. PO (23:41)
[2017-08-20] MEDS: ACETAMINOPHEN 500 MG TABLET PO (23:41)
[2017-08-21] MEDS ORDERED: ONDANSETRON PF 4 MG/2 ML VIAL. IV (00:15)
[2017-08-21] MEDS ORDERED: ACETAMINOPHEN 325 MG TABLET. PO (00:15)
[2017-08-21 00:33] LABS: LACTIC ACID 1.7 mmol/L (0.4-2.0)
[2017-08-21] MEDS: VANCOMYCIN 2 GM in IV 1/2 NORMAL SALINE 500 ML IV (01:01)
[2017-08-21] MEDS: IV NORMAL SALINE 1000ML BAG 1,000 ML IV (01:01)
[2017-08-21] MEDS: PROMETH/CODEINE 6.25/10MG 5 ML SYRUP. PO ×2 (01:02→10:29)
[2017-08-21] MEDS: fentaNYL PF VIAL 100 MCG/2 ML VIAL IV ×3 (01:02→22:27)
[2017-08-21] MEDS: VANCOMYCIN PER PHARMACY MC (02:25)
[2017-08-21] MEDS: IPRATRPIUM/ALBUTEROL 0.5/2.5MG 3 ML NEBU. NEB ×4 (07:51→18:23)
[2017-08-21] MEDS ORDERED: NON FORMULARY ITEM (Tiotropium Bromide (Spiriva) 2 INH) IH (09:00)
[2017-08-21] MEDS: ASPIRIN ENTERIC COATED 81 MG TABLET.DR. PO (10:29)
[2017-08-21] MEDS: LACTOBACILLUS RHAMNOSUS GG 1 CAPSULE. PO ×2 (10:30→20:30)
[2017-08-21] MEDS: FUROSEMIDE 20 MG TABLET PO (10:30)
[2017-08-21] MEDS: LISINOPRIL 10 MG TABLET PO (10:31)
[2017-08-21] MEDS: FAMOTIDINE 20 MG TABLET. PO (10:31)
[2017-08-21] MEDS: BENZONATATE 100 MG CAPSULE. PO ×3 (10:31→20:30)
[2017-08-21] MEDS: IBUPROFEN 600 MG TABLET. PO (10:32)
[2017-08-21 13:03] LABS: CREATINE KINASE 559 U/L (39-308)
[2017-08-21] MEDS: traMADol 50 MG TABLET PO (17:22)
[2017-08-21] MEDS: VANCOMYCIN 1.25 GM in IV NORMAL SALINE 250ML 250 ML IV (20:29)
[2017-08-21] MEDS: ATORVASTATIN CALCIUM 10 MG TABLET. PO (20:30)
[2017-08-21] MEDS: DICLOFENAC SODIUM 1% TOPICAL GEL 100GM TUBE. TP (20:30)
[2017-08-22] MEDS: PROMETH/CODEINE 6.25/10MG 5 ML SYRUP. PO ×2 (00:33→20:33)
[2017-08-22] MEDS: traMADol 50 MG TABLET PO ×2 (04:11→13:39)
[2017-08-22 04:15] LABS: ADD MAN DIFF? NO
[2017-08-22] MEDS: ALBUTEROL SULFATE 2.5 MG/3 ML NEBU. NEB ×2 (04:18→10:32)
[2017-08-22 04:22] LABS: BASO % 0 % (0-3); EOS # 0.1 x10^3/uL (0.0-0.7); EOS % 1 % (0-3); HEMATOCRIT 40.1 % (39.0-53.0); HEMOGLOBIN 13.6 g/dL (13.0-17.5); LYMPH # 0.4 x10^3/uL (1.0-4.8); LYMPH % 9 % (24-48); MEAN CORPUSCULAR HEMOGLOBIN 32 pg (25-35); MEAN CORPUSCULAR HGB CONC 34 g/dL (31-37); MEAN CORPUSCULAR VOLUME 93 fL (79-100); MONO # 0.5 x10^3/uL (0.0-1.1); MONO % 10 % (0-9); NEUT # 3.9 x10^3uL (1.8-7.7); NEUT % 80 % (31-73); PLATELET COUNT 122 x10^3/uL (140-400); RED CELL DISTRIBUTION WIDTH 14.2 % (11.5-14.5); WHITE BLOOD COUNT 4.9 x10^3/uL (4.0-11.0)
[2017-08-22 05:13] LABS: ANION GAP 5 (6-14); BLOOD UREA NITROGEN 13 mg/dL (8-26); CALCIUM 8.2 mg/dL (8.5-10.1); CARBON DIOXIDE 28 mmol/L (21-32); CHLORIDE 104 mmol/L (98-107); CREATININE 1.1 mg/dL (0.7-1.3); GFR 83.2; GLUCOSE 110 mg/dL (70-99); SODIUM 137 mmol/L (136-145)
[2017-08-22] MEDS: IPRATRPIUM/ALBUTEROL 0.5/2.5MG 3 ML NEBU. NEB ×4 (08:08→20:07)
[2017-08-22] MEDS: FAMOTIDINE 20 MG TABLET. PO (08:30)
[2017-08-22] MEDS: LACTOBACILLUS RHAMNOSUS GG 1 CAPSULE. PO ×2 (08:30→20:28)
[2017-08-22] MEDS: HYDROcodone/APAP 7.5/325MG 1 TAB TABLET PO ×2 (08:30→21:54)
[2017-08-22] MEDS: BENZONATATE 100 MG CAPSULE. PO ×3 (08:31→20:28)
[2017-08-22] MEDS: LISINOPRIL 10 MG TABLET PO (08:32)
[2017-08-22] MEDS: ASPIRIN ENTERIC COATED 81 MG TABLET.DR. PO (08:33)
[2017-08-22] MEDS: FUROSEMIDE 20 MG TABLET PO (08:34)
[2017-08-22] MEDS: DICLOFENAC SODIUM 1% TOPICAL GEL 100GM TUBE. TP ×2 (09:00→20:30)
[2017-08-22] MEDS: VANCOMYCIN RANDOM LEVEL. MC (13:30)
[2017-08-22 14:28] LABS: VANC TR 6.8 mcg/mL (10.0-20.0)
[2017-08-22] MEDS: VANCOMYCIN 1.25 GM in IV NORMAL SALINE 250ML 250 ML IV (15:42)
[2017-08-22] MEDS: VANCOMYCIN PER PHARMACY MC ×2 (15:51→16:02)
[2017-08-22] MEDS: ATORVASTATIN CALCIUM 10 MG TABLET. PO (20:29)
[2017-08-23 02:15] LABS: ALDOLASE 13.1 U/L (3.3-10.3)
[2017-08-23] MEDS: traMADol 50 MG TABLET PO ×3 (03:24→20:21)
[2017-08-23] MEDS: VANCOMYCIN 1.25 GM in IV NORMAL SALINE 250ML 250 ML IV ×2 (03:25→15:57)
[2017-08-23] MEDS: ALBUTEROL SULFATE 2.5 MG/3 ML NEBU. NEB (05:05)
[2017-08-23] MEDS: HYDROcodone/APAP 7.5/325MG 1 TAB TABLET PO ×3 (07:31→23:14)
[2017-08-23] MEDS: BENZONATATE 100 MG CAPSULE. PO ×3 (08:26→20:17)
[2017-08-23] MEDS: LACTOBACILLUS RHAMNOSUS GG 1 CAPSULE. PO ×2 (08:26→20:16)
[2017-08-23] MEDS: FAMOTIDINE 20 MG TABLET. PO (08:26)
[2017-08-23] MEDS: LISINOPRIL 10 MG TABLET PO (08:26)
[2017-08-23] MEDS: FUROSEMIDE 20 MG TABLET PO (08:27)
[2017-08-23] MEDS: ASPIRIN ENTERIC COATED 81 MG TABLET.DR. PO (08:27)
[2017-08-23] MEDS: DICLOFENAC SODIUM 1% TOPICAL GEL 100GM TUBE. TP ×2 (08:28→20:18)
[2017-08-23] MEDS: IPRATRPIUM/ALBUTEROL 0.5/2.5MG 3 ML NEBU. NEB ×4 (08:36→19:57)
[2017-08-23] MEDS: FUROSEMIDE 40 MG/4 ML VIAL. IVP (10:51)
[2017-08-23] MEDS: DOXYCYCLINE HYCLATE 100 MG TABLET PO ×2 (10:51→20:17)
[2017-08-23] MEDS: VANCOMYCIN PER PHARMACY MC (11:20)
[2017-08-23] MEDS: ATORVASTATIN CALCIUM 10 MG TABLET. PO (20:17)
[2017-08-23] MEDS: PROMETH/CODEINE 6.25/10MG 5 ML SYRUP. PO (20:18)
[2017-08-24] MEDS: ALBUTEROL SULFATE 2.5 MG/3 ML NEBU. NEB (03:37)
[2017-08-24 04:08] LABS: VANC TR 13.9 mcg/mL (10.0-20.0)
[2017-08-24] MEDS: VANCOMYCIN 1.25 GM in IV NORMAL SALINE 250ML 250 ML IV (04:23)
[2017-08-24] MEDS: VANCOMYCIN PER PHARMACY MC (05:53)
[2017-08-24] MEDS: IPRATRPIUM/ALBUTEROL 0.5/2.5MG 3 ML NEBU. NEB ×2 (07:23→11:24)
[2017-08-24] MEDS: BENZONATATE 100 MG CAPSULE. PO (07:32)
[2017-08-24] MEDS: LACTOBACILLUS RHAMNOSUS GG 1 CAPSULE. PO (07:32)
[2017-08-24] MEDS: FAMOTIDINE 20 MG TABLET. PO (07:32)
[2017-08-24] MEDS: ASPIRIN ENTERIC COATED 81 MG TABLET.DR. PO (07:32)
[2017-08-24] MEDS: FUROSEMIDE 20 MG TABLET PO (07:33)
[2017-08-24] MEDS: HYDROcodone/APAP 7.5/325MG 1 TAB TABLET PO (07:33)
[2017-08-24] MEDS: LISINOPRIL 10 MG TABLET PO (07:33)
[2017-08-24] MEDS: DOXYCYCLINE HYCLATE 100 MG TABLET PO (07:33)
[2017-08-24] MEDS: DICLOFENAC SODIUM 1% TOPICAL GEL 100GM TUBE. TP (07:34)
[2017-08-24] MEDS: IBUPROFEN 600 MG TABLET. PO (12:00)
[2017-08-24] MEDS ORDERED: VANCOMYCIN 1.5 GM in IV NORMAL SALINE 500ML BAG 500 ML IV (16:00)
== END 2017-08-24 13:41 | disposition home or self-care (01) | DRG 177 ==
LOC: 6 SOUTH 08-21 → ER 21:30
DX: J15.6 Pneumonia due to other Gram-negative bacteria (principal); N17.0 Acute kidney failure with tubular necrosis; B15.9 Hepatitis A without hepatic coma; J44.1 Chronic obstructive pulmonary disease with (acute) exacerbation; J44.0 Chronic obstructive pulmonary disease with (acute) lower respiratory infection; J96.11 Chronic respiratory failure with hypoxia; G72.0 Drug-induced myopathy; J18.9 Pneumonia, unspecified organism; I50.9 Heart failure, unspecified; I11.0 Hypertensive heart disease with heart failure; Z88.8 Allergy status to other drugs, medicaments and biological substances; I27.20 Pulmonary hypertension, unspecified; E78.5 Hyperlipidemia, unspecified; Z82.49 Family history of ischemic heart disease and other diseases of the circulatory system; Z87.891 Personal history of nicotine dependence; E83.42 Hypomagnesemia; Z99.81 Dependence on supplemental oxygen; D70.9 Neutropenia, unspecified; Z79.52 Long term (current) use of systemic steroids; T38.0X5A Adverse effect of glucocorticoids and synthetic analogues, initial encounter; G89.29 Other chronic pain; M54.5 Low back pain
CPT/HCPCS: 36415; 71045; 71250; 80048; 80202; 82085; 82550; 82553; 83605; 83735; 83880; 84443; 84484; 85025; 87040; 93005; 93970; 94640; 94760; 96365; 97110-GP; 97162-GP; 97530-GP; 99285; 99285-25; J1940; J2543; J3010; J3370; J7030; J7050; J7512; J7613; J7620

== ENCOUNTER 2017-08-25 04:48 | Emergency (ER) | payer MEDICAID ==
[2017-08-25] MEDS: IPRATRPIUM/ALBUTEROL 0.5/2.5MG 3 ML NEBU. NEB (05:39)
[2017-08-25 05:45] LABS: ADD MAN DIFF? NO
[2017-08-25 05:49] LABS: BASO % 1 % (0-3); EOS # 0.1 x10^3/uL (0.0-0.7); EOS % 2 % (0-3); HEMATOCRIT 40.6 % (39.0-53.0); HEMOGLOBIN 13.9 g/dL (13.0-17.5); LYMPH # 0.7 x10^3/uL (1.0-4.8); LYMPH % 16 % (24-48); MEAN CORPUSCULAR HEMOGLOBIN 31 pg (25-35); MEAN CORPUSCULAR HGB CONC 34 g/dL (31-37); MEAN CORPUSCULAR VOLUME 92 fL (79-100); MONO # 0.6 x10^3/uL (0.0-1.1); MONO % 14 % (0-9); NEUT # 2.9 x10^3uL (1.8-7.7); NEUT % 68 % (31-73); PLATELET COUNT 146 x10^3/uL (140-400); RED BLOOD COUNT 4.43 x10^6/uL (4.30-5.70); RED CELL DISTRIBUTION WIDTH 14.2 % (11.5-14.5); WHITE BLOOD COUNT 4.3 x10^3/uL (4.0-11.0)
[2017-08-25 06:02] LABS: BILIRUBIN,URINE NEGATIVE (NEG); CLARITY,URINE CLEAR; COLOR,URINE YELLOW; GLUCOSE,URINE NEGATIVE (NEG); NITRITE,URINE NEGATIVE (NEG); PH,URINE 7.5; PROTEIN,URINE NEGATIVE (NEG-TRACE)
[2017-08-25 06:05] LABS: ANION GAP 4 (6-14); BACTERIA,URINE 0 /HPF (0-FEW); BLOOD UREA NITROGEN 10 mg/dL (8-26); BUN/CREATININE RATIO 10 (6-20); CALCIUM 9.4 mg/dL (8.5-10.1); CARBON DIOXIDE 35 mmol/L (21-32); CHLORIDE 100 mmol/L (98-107); GFR 92.9; GLUCOSE 119 mg/dL (70-99); POTASSIUM 3.5 mmol/L (3.5-5.1); RBC,URINE OCC /HPF (0-2); SODIUM 139 mmol/L (136-145); SQUAMOUS EPITHELIAL CELL,UR FEW /LPF; WBC,URINE OCC /HPF (0-4)
[2017-08-25 06:11] LABS: ALBUMIN 3.6 g/dL (3.4-5.0); ALBUMIN/GLOBULIN RATIO 1.1 (1.0-1.7); ALK PHOS 85 U/L (46-116); ALT (SGPT) 34 U/L (16-63); AST (SGOT) 31 U/L (15-37); TOTAL BILIRUBIN 1.2 mg/dL (0.2-1.0); TOTAL PROTEIN 6.9 g/dL (6.4-8.2)
== END 2017-08-25 06:47 | disposition home or self-care (01) ==
LOC: ER 04:48
DX: K59.00 Constipation, unspecified (principal); R06.02 Shortness of breath; J44.9 Chronic obstructive pulmonary disease, unspecified; I11.0 Hypertensive heart disease with heart failure; I50.9 Heart failure, unspecified
CPT/HCPCS: 36415; 71046; 74018; 80053; 81001; 85025; 93005; 94640; 99285-25; J7620

== ENCOUNTER 2017-09-09 23:29 | Emergency (ER) | payer MEDICAID ==
[2017-09-09] MEDS: IPRATRPIUM/ALBUTEROL 0.5/2.5MG 3 ML NEBU. NEB (23:48)
[2017-09-10 00:37] LABS: ADD MAN DIFF? NO
[2017-09-10 00:41] LABS: BASO % 1 % (0-3); EOS % 1 % (0-3); HEMATOCRIT 40.8 % (39.0-53.0); HEMOGLOBIN 14.3 g/dL (13.0-17.5); LYMPH # 0.5 x10^3/uL (1.0-4.8); LYMPH % 9 % (24-48); MEAN CORPUSCULAR HEMOGLOBIN 32 pg (25-35); MEAN CORPUSCULAR HGB CONC 35 g/dL (31-37); MEAN CORPUSCULAR VOLUME 92 fL (79-100); MONO # 0.5 x10^3/uL (0.0-1.1); MONO % 9 % (0-9); NEUT # 4.2 x10^3uL (1.8-7.7); NEUT % 81 % (31-73); PLATELET COUNT 176 x10^3/uL (140-400); RED BLOOD COUNT 4.43 x10^6/uL (4.30-5.70); RED CELL DISTRIBUTION WIDTH 13.8 % (11.5-14.5); WHITE BLOOD COUNT 5.2 x10^3/uL (4.0-11.0)
[2017-09-10 00:59] LABS: ANION GAP 3 (6-14); BLOOD UREA NITROGEN 16 mg/dL (8-26); CALCIUM 8.7 mg/dL (8.5-10.1); CARBON DIOXIDE 35 mmol/L (21-32); CHLORIDE 104 mmol/L (98-107); CREATININE 1.1 mg/dL (0.7-1.3); GFR 83.2; GLUCOSE 90 mg/dL (70-99); SODIUM 142 mmol/L (136-145)
[2017-09-10 01:01] LABS: POTASSIUM 2.8 mmol/L (3.5-5.1)
[2017-09-10] MEDS: predniSONE 20 MG TABLET PO (01:07)
[2017-09-10 01:10] LABS: TROPONINI < 0.017 ng/mL (0.000-0.055)
[2017-09-10] MEDS: ALBUTEROL SULFATE 2.5 MG/3 ML NEBU. NEB ×2 (01:11→03:06)
[2017-09-10 01:13] LABS: NT-PRO BNP 23 pg/mL (0-124)
[2017-09-10] MEDS ORDERED: ALBUTEROL SULFATE 2.5 MG/3 ML NEBU. CONT NEB (01:30)
[2017-09-10] MEDS: HYDROcodone/APAP 5/325MG 1 TAB TABLET PO (01:55)
[2017-09-10] MEDS: POTASSIUM CHLORIDE 20 MEQ/15 ML ORAL LIQUID. PO ×2 (01:58→04:27)
== END 2017-09-10 04:53 | disposition home or self-care (01) ==
LOC: ER 23:29
DX: R06.2 Wheezing (principal); R06.00 Dyspnea, unspecified; J43.9 Emphysema, unspecified; I11.0 Hypertensive heart disease with heart failure; I50.9 Heart failure, unspecified; Z88.5 Allergy status to narcotic agent
CPT/HCPCS: 36415; 71045; 80048; 83880; 84484; 85025; 93005; 94640; 99285-25; J7512; J7613; J7620

== ENCOUNTER 2017-10-10 09:29 | Emergency (ER) | payer MEDICAID ==
[~2017-10-10] VITALS: Ht 180.3 cm; Wt 84.9 kg
[~2017-10-10 09:29] MED LIST changes: +ALBU0.63 NEB; +ALBU2.5V5 NEB; +AMOX1TAB11 PO; +ASPI-482 PO; +ATOR10TA60 PO; +AZIT1PAC PO; +B12/1TAB PO; +BENZ100C PO; +CEFP100T PO; +DOXY100T PO; +DOXY100T9 PO; +FAMO20TA5 PO; +FURO-69 PO; +FURO20TA3 PO; +HYDR-2758 PO; -LABE100T3 PO; +LABE100T5 PO; +LACT20SO PO; +LEVO750T31 PO; +LISI10TA2 PO; +OXYC-323 PO
[2017-10-10] MEDS: IPRATRPIUM/ALBUTEROL 0.5/2.5MG 3 ML NEBU. NEB ONE (10:08)
[2017-10-10 10:10] LABS: BASO % 0 % (0-3); EOS % 0 % (0-3); HEMATOCRIT 43.2 % (39.0-53.0); HEMOGLOBIN 15.2 g/dL (13.0-17.5); LYMPH # 0.3 x10^3/uL (1.0-4.8); LYMPH % 4 % (24-48); MEAN CORPUSCULAR HEMOGLOBIN 32 pg (25-35); MEAN CORPUSCULAR HGB CONC 35 g/dL (31-37); MEAN CORPUSCULAR VOLUME 91 fL (79-100); MONO # 0.1 x10^3/uL (0.0-1.1); MONO % 2 % (0-9); NEUT # 6.7 x10^3uL (1.8-7.7); NEUT % 94 % (31-73); PLATELET COUNT 173 x10^3/uL (140-400); RED BLOOD COUNT 4.77 x10^6/uL (4.30-5.70); RED CELL DISTRIBUTION WIDTH 13.8 % (11.5-14.5); WHITE BLOOD COUNT 7.2 x10^3/uL (4.0-11.0)
--- NOTE | 2017-10-10 10:23 | PHYS DOC ---
Past Medical History Past Medical History: Bronchitis, CHF, COPD, Hypertension Additional Past Medical Histor: EMPHYSEMA-on 3 L NC Past Surgical History: Other Additional Past Surgical Histo: HERNIA Alcohol Use: None Drug Use: None Adult General Chief Complaint Chief Complaint: SHORTNESS OF BREATH HPI HPI Patient is a 57 year old male with history of emphysema who is presenting with shortness of breath. 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 No chest pain he does have dull center back pain may be from coughing yellow sputum increase in productive cough over the last 24 hours no fever apparently was 89% on 5 L when he was at triage but he is in the mid 90s on 3 L a minute evaluation symptoms are moderate slowly worsening with time somewhat of previous COPD exacerbations he is planning to try to go to [facility] for a lung transplant. Review of Systems Review of Systems Constitutional: Denies fever or chills [] Eyes: Denies change in visual acuity, redness, or eye pain [] HENT: Denies nasal congestion or sore throat [] Cardiovascular: No additional information not addressed in HPI [] GI: Denies abdominal pain, nausea, vomiting, bloody stools or diarrhea [] Neurologic: Denies headache, focal weakness or sensory changes [] Endocrine: Denies polyuria or polydipsia [] All other systems were reviewed and found to be within normal limits, except as documented in this note. Current Medications Current Medications Current Medications Medications (Trade) Dose Ordered Sig/[facility] Start Time Stop Time Status Last Admin Dose Admin Albuterol/ Ipratropium (Duoneb) 3 ml 1X ONCE 10/10/17 10:00 10/10/17 10:01 DC 10/10/17 10:08 3 ML Prednisone (Prednisone) 50 mg 1X ONCE 10/10/17 10:00 10/10/17 10:01 DC 10/10/17 10:43 50 MG Allergies Allergies Allergies Coded Allergies Type Severity Reaction Last Updated Verified methylprednisolone Adverse Reaction Severe Shortness of Air; TOLERATES PREDNISONE, BUDESONIDE 06/11/17 Yes Physical Exam Physical Exam Constitutional: Well developed, well nourished, no acute distress, non-toxic appearance. [] HENT: Normocephalic, atraumatic, bilateral external ears normal, oropharynx moist, no oral exudates, nose normal. [] Eyes: PERRLA, EOMI, conjunctiva normal, no discharge. [] Neck: Normal range of motion, no tenderness, supple, no stridor. [] Cardiovascular:Heart rate regular rhythm, no murmur [] Lungs & Thorax: Wheezing noted bilaterally patient is speaking full sentences appears to have mild shortness of breath. Compared to last few times have seen him in the emergency room he is actually stable. Abdomen: Bowel sounds normal, soft, no tenderness, no masses, no pulsatile masses. [] Skin: Warm, dry, no erythema, no rash. [] Back: No tenderness, no CVA tenderness. [] Extremities: No tenderness, no cyanosis, no clubbing, ROM intact, 1+ edema Neurologic: Alert and oriented X 3, normal motor function, normal sensory function, no focal deficits noted. [] Psychologic: Affect normal, judgement normal, mood normal. [] Current Patient Data Vital Signs Vital Signs Date Time Temp Pulse Resp B/P (MAP) Pulse Ox O2 Delivery O2 Flow Rate FiO2 10/10/17 10:13 96 Nasal Cannula 3.0 10/10/17 09:30 117 19 115/84 (94) Lab Values Laboratory Tests Test 10/10/17 09:46 White Blood Count 7.2 x10^3/uL (4.0-11.0) Red Blood Count 4.77 x10^6/uL (4.30-5.70) Hemoglobin 15.2 g/dL (13.0-17.5) Hematocrit 43.2 % (39.0-53.0) Mean Corpuscular Volume 91 fL (79-100) Mean Corpuscular Hemoglobin 32 pg (25-35) Mean Corpuscular Hemoglobin Concent 35 g/dL (31-37) Red Cell Distribution Width 13.8 % (11.5-14.5) Platelet Count 173 x10^3/uL (140-400) Neutrophils (%) (Auto) 94 % (31-73) H Lymphocytes (%) (Auto) 4 % (24-48) L Monocytes (%) (Auto) 2 % (0-9) Eosinophils (%) (Auto) 0 % (0-3) Basophils (%) (Auto) 0 % (0-3) Neutrophils # (Auto) 6.7 x10^3uL (1.8-7.7) Lymphocytes # (Auto) 0.3 x10^3/uL (1.0-4.8) L Monocytes # (Auto) 0.1 x10^3/uL (0.0-1.1) Eosinophils # (Auto) 0.0 x10^3/uL (0.0-0.7) Basophils # (Auto) 0.0 x10^3/uL (0.0-0.2) Segmented Neutrophils % 94 % (35-66) H Lymphocytes % 3 % (24-48) L Monocytes % 3 % (0-10) Platelet Estimate Adequate (ADEQUATE) Prothrombin Time 11.8 SEC (11.7-14.0) Prothrombin Time INR 0.9 (0.8-1.1) Sodium Level 142 mmol/L (136-145) Potassium Level 3.7 mmol/L (3.5-5.1) Chloride Level 101 mmol/L (98-107) Carbon Dioxide Level 34 mmol/L (21-32) H Anion Gap 7 (6-14) Blood Urea Nitrogen 17 mg/dL (8-26) Creatinine 1.2 mg/dL (0.7-1.3) Estimated GFR (Cockcroft-Gault) 75.2 BUN/Creatinine Ratio 14 (6-20) Glucose Level 129 mg/dL (70-99) H Calcium Level 8.8 mg/dL (8.5-10.1) Total Bilirubin 0.7 mg/dL (0.2-1.0) Aspartate Amino Transferase (AST) 21 U/L (15-37) Alanine Aminotransferase (ALT) 33 U/L (16-63) Alkaline Phosphatase 83 U/L (46-116) Troponin I Quantitative < 0.017 ng/mL (0.000-0.055) RE-Kly-B-Type Natriuretic Peptide 44 pg/mL (0-124) Total Protein 6.9 g/dL (6.4-8.2) Albumin 3.8 g/dL (3.4-5.0) Albumin/Globulin Ratio 1.2 (1.0-1.7) Laboratory Tests 10/10/17 09:46 Laboratory Tests 10/10/17 09:46 EKG EKG [] Interpretation Time: EKG shows a normal sinus rhythm rate of 95 no acute ischemic changes noted intervals normal interpreted by me time of encounter Radiology/Procedures Radiology/Procedures [] Impressions: IMPRESSION: 1. Extensive bullous emphysema with parenchymal scarring. A component of chronic pneumonitis/bronchitis on the right cannot be excluded. 2. No significant change since 09/10/2017. Electronically signed by: Ciro Becerra MD (10/10/2017 11:20 AM) [facility] DICTATED and SIGNED BY: CIRO BECERRA MD DATE: 10/10/17 1110 Course & Med Decision Making Course & Med Decision Making Pertinent Labs and Imaging studies reviewed. (See chart for details) []Albuterol prednisone were given patient felt better in the emergency room suspect COPD exacerbation he is on currently in the mid 90s on his home oxygen. I think it was because he ran out of his albuterol. PA and lateral chest x-ray does not show a clear pneumonia. Patient is doing better after breathing treatment in the ER his sat is in the mid to high 90s on his home oxygen level 3 L. He was instructed to continue albuterol continuous prednisone he is also on daily prophylactic antibiotics she was told to continue these. He requested cough syrup this was given for short course. He was instructed to follow-up with his primary care doctor the next few days for reevaluation. I don't think that he needs admission criteria at this time he does have severe end-stage COPD at baseline he also wants to stay out of hospitals much as possible. Dragon Disclaimer Dragon Disclaimer This electronic medical record was generated, in whole or in part, using a voice recognition dictation system. Departure Departure Impression: Primary Impression: COPD with exacerbation Disposition: HOME, SELF-CARE Condition: STABLE Referrals: UNKNOWN PCP NAME (PCP) Scripts Guaifenesin/Codeine Phosphate (GUAIFENESIN-CODEINE SYRUP) 118 Ml Liquid 5 ML PO Q6HRS, #120 ML Prov: TEVIN GOODWIN MD 10/10/17 Prednisone (PREDNISONE) 50 Mg Tablet 1 TAB PO DAILY, #5 TAB Prov: TEVIN GOODWIN MD 10/10/17 TEVNI GOODWIN MD Oct 10, 2017 10:23
[2017-10-10 10:27] LABS: CALCIUM 8.8 mg/dL (8.5-10.1); CREATININE 1.2 mg/dL (0.7-1.3); GFR 75.2; POTASSIUM 3.7 mmol/L (3.5-5.1)
--- NOTE | 2017-10-10 10:27 | EKG ---
[facility] [address] [place] [address] Test Date: 2017-10-10 Test Time: 09:37:40 Pat Name: KAYLA JONES Department: Room: Gender: Video Operator: KELVIN : 1960 Requested By: TEVIN GOODWIN Order Number: [id number] Reading MD: Luis Manuel Thornton MD Measurements Intervals Allen Rate: 95 P: 71 WI: 156 QRS: 47 QRSD: 82 T: 64 QT: 336 QTc: 425 Interpretive Statements SINUS RHYTHM Electronically Signed On 10-10-2017 12:42:09 CDT by Luis Manuel Thornton MD
[2017-10-10 10:29] LABS: PROTHROMBIN TIME PATIENT 11.8 SEC (11.7-14.0)
[2017-10-10 10:31] LABS: ALBUMIN 3.8 g/dL (3.4-5.0); ALBUMIN/GLOBULIN RATIO 1.2 (1.0-1.7); TOTAL BILIRUBIN 0.7 mg/dL (0.2-1.0); TOTAL PROTEIN 6.9 g/dL (6.4-8.2)
--- NOTE | 2017-10-10 10:35 | RAD ---
EXAM: Chest, single view. HISTORY: Difficulty breathing. COMPARISON: 09/10/2017 FINDINGS: A frontal view of the chest obtained. There is increased bilateral lower lobe interstitial opacity due to atelectasis or infiltrate. The right costophrenic angle is excluded from the [id number]. No left pleural effusion is seen. There is lucency within the left upper lobe due to bolus emphysema. No pneumothorax is seen. The heart is normal in size. IMPRESSION: 1. Suspected bilateral lower lobe atelectasis or interstitial infiltrate. 2. Left upper lobe predominant bullous emphysema. Electronically signed by: Unique Sepulveda MD (10/10/2017 10:32 AM) [facility]
[2017-10-10] MEDS: predniSONE 20 MG TABLET PO ONE (10:43)
--- NOTE | 2017-10-10 11:22 | RAD ---
Chest, 2 views, 10/10/2017: HISTORY: Shortness of breath Comparison is made to a portable exam from earlier in the day. The heart is within normal limits in size. There is an unchanged prominent lucency in the left upper chest compatible with bullous emphysema. Both hemidiaphragms are flattened due to hyperexpansion. Prominent pulmonary markings in the lower chest bilaterally are unchanged since study from 09/10/2017 and05/02/2017 suggesting scarring versus chronic pneumonitis. No new pulmonary abnormality is seen. There is no evidence of pleural fluid. IMPRESSION: 1. Extensive bullous emphysema with parenchymal scarring. A component of chronic pneumonitis/bronchitis on the right cannot be excluded. 2. No significant change since 09/10/2017. Electronically signed by: Ciro Becerra MD (10/10/2017 11:20 AM) [facility]
[2017-10-10 11:32] LABS: % LYMPHS 3 % (24-48); % MONOS 3 % (0-10); % SEGS 94 % (35-66); PLT ESTIMATE ADEQUATE (ADEQUATE)
[2017-10-10] MEDS ORDERED: PRED50TA PO (11:34)
[2017-10-10] MEDS ORDERED: GUAI118L13 PO (11:40)
[2017-10-10 12:06] VITALS: BP 126/79
== END 2017-10-10 12:20 | disposition home or self-care (01) ==
LOC: ER 09:29
DX: J44.1 Chronic obstructive pulmonary disease with (acute) exacerbation (principal); I11.0 Hypertensive heart disease with heart failure; I50.9 Heart failure, unspecified; Z88.5 Allergy status to narcotic agent
CPT/HCPCS: 36415; 71045; 71046; 80053; 83880; 84484; 85007; 85025; 85610; 93005; 94640; 99285; J7512; J7620

== ENCOUNTER 2017-10-13 15:52 | Inpatient (IN) | payer MEDICAID ==
[~2017-10-13] VITALS: Ht 180.3 cm; Wt 86.2 kg
[~2017-10-13 15:52] MED LIST changes: +GUAI118L13 PO
[2017-10-13] MEDS ORDERED: IPRATRPIUM/ALBUTEROL 0.5/2.5MG 3 ML NEBU. NEB ONE (16:30)
[2017-10-13] MEDS ORDERED: methylPREDNISolone SOD SUCC PF 125 MG/2 ML VIAL. IV ONE (16:30)
[2017-10-13 16:37] LABS: BASO # 0.1 x10^3/uL (0.0-0.2); BASO % 0 % (0-3); EOS % 0 % (0-3); HEMATOCRIT 41.3 % (39.0-53.0); LYMPH # 0.3 x10^3/uL (1.0-4.8); LYMPH % 2 % (24-48); MEAN CORPUSCULAR HEMOGLOBIN 31 pg (25-35); MEAN CORPUSCULAR HGB CONC 34 g/dL (31-37); MEAN CORPUSCULAR VOLUME 92 fL (79-100); MONO # 0.5 x10^3/uL (0.0-1.1); MONO % 4 % (0-9); NEUT # 12.3 x10^3uL (1.8-7.7); NEUT % 93 % (31-73); PLATELET COUNT 157 x10^3/uL (140-400); RED BLOOD COUNT 4.52 x10^6/uL (4.30-5.70); RED CELL DISTRIBUTION WIDTH 13.9 % (11.5-14.5); WHITE BLOOD COUNT 13.3 x10^3/uL (4.0-11.0)
[2017-10-13] MEDS ORDERED: ALBUTEROL SULFATE 2.5 MG/3 ML NEBU. CONT NEB ONE ×2 (16:45→18:15)
[2017-10-13 16:55] LABS: % BANDS 2 % (0-9); % LYMPHS 5 % (24-48); % MONOS 4 % (0-10); % SEGS 89 % (35-66); PLT ESTIMATE ADEQUATE (ADEQUATE)
--- NOTE | 2017-10-13 16:58 | PHYS DOC ---
Past Medical History Past Medical History: Bronchitis, CHF, COPD, Lung Disease Additional Past Medical Histor: EMPHYSEMA-on 3 L NC Past Surgical History: Other Additional Past Surgical Histo: INGUINAL HERNIA REPAIR X2 Additional Information: QUIT 3 YEARS AGO Alcohol Use: None Drug Use: None Adult General Chief Complaint Chief Complaint: SHORTNESS OF BREATH HPI HPI Patient is a 57 year old male who presents with COPD flare. The patient has known severe COPD. He presents today complaining of ongoing dyspnea. He was in this emergency department 3 days earlier with the same complaint. At that time, he was encouraged to continue his daily antibiotics which she takes prophylactically. He was also given a course of prednisone. He returns to the ER today for ongoing symptoms that are unrelieved by his albuterol treatments at home. He does have worsening cough that is productive of sputum intermittently. He denies fever. He is not have chest pain. Review of Systems Review of Systems Constitutional: Denies fever Eyes: Denies change in visual acuity HENT: Denies nasal congestion Respiratory: Denies cough or shortness of breath Cardiovascular: No additional information not addressed in HPI GI: Denies abdominal pain : Denies dysuria Musculoskeletal: Denies back pain Integument: Denies rash Neurologic: Denies headache Endocrine: Denies polyuria All other systems were reviewed and found to be within normal limits, except as documented in this note. Current Medications Current Medications Current Medications Medications (Trade) Dose Ordered Sig/Candy Start Time Stop Time Status Last Admin Dose Admin Albuterol/ Ipratropium (Duoneb) 3 ml 1X ONCE 10/13/17 16:30 10/13/17 16:35 DC 10/13/17 16:45 3 ML Methylprednisolone Sodium Succinate (SOLU-Medrol 125MG VIAL) 125 mg 1X ONCE 10/13/17 16:30 10/13/17 16:34 DC 10/13/17 17:04 125 MG Allergies Allergies Physical Exam Physical Exam Constitutional: Well developed, well nourished, HENT: Normocephalic, atraumatic, bilateral external ears normal, oropharynx moist Neck: Normal range of motion Cardiovascular: tachy regular rhythm, no murmur Lungs & Thorax: diminished in all lira with prolonged exp phase and wheezes throughout Abdomen: Bowel sounds normal, soft Skin: Warm, dry, no erythema, no rash. Extremities: No edema Neurologic: Alert and oriented X 3 Psychologic: Affect normal Current Patient Data Vital Signs Vital Signs Date Time Temp Pulse Resp B/P (MAP) Pulse Ox O2 Delivery O2 Flow Rate FiO2 10/13/17 16:11 98.3 110 30 144/85 (104) 98 Nasal Cannula 4.0 98.3 Lab Values Laboratory Tests Test 10/13/17 16:20 White Blood Count 13.3 x10^3/uL (4.0-11.0) H Red Blood Count 4.52 x10^6/uL (4.30-5.70) Hemoglobin 14.0 g/dL (13.0-17.5) Hematocrit 41.3 % (39.0-53.0) Mean Corpuscular Volume 92 fL (79-100) Mean Corpuscular Hemoglobin 31 pg (25-35) Mean Corpuscular Hemoglobin Concent 34 g/dL (31-37) Red Cell Distribution Width 13.9 % (11.5-14.5) Platelet Count 157 x10^3/uL (140-400) Neutrophils (%) (Auto) 93 % (31-73) H Lymphocytes (%) (Auto) 2 % (24-48) L Monocytes (%) (Auto) 4 % (0-9) Eosinophils (%) (Auto) 0 % (0-3) Basophils (%) (Auto) 0 % (0-3) Neutrophils # (Auto) 12.3 x10^3uL (1.8-7.7) H Lymphocytes # (Auto) 0.3 x10^3/uL (1.0-4.8) L Monocytes # (Auto) 0.5 x10^3/uL (0.0-1.1) Eosinophils # (Auto) 0.0 x10^3/uL (0.0-0.7) Basophils # (Auto) 0.1 x10^3/uL (0.0-0.2) Segmented Neutrophils % 89 % (35-66) H Band Neutrophils % 2 % (0-9) Lymphocytes % 5 % (24-48) L Monocytes % 4 % (0-10) Platelet Estimate Adequate (ADEQUATE) Laboratory Tests 10/13/17 16:20 EKG EKG [] Radiology/Procedures Radiology/Procedures CXR three days earlier with severe emphysematous changes for no acute Course & Med Decision Making Course & Med Decision Making Pertinent Labs and Imaging studies reviewed. (See chart for details) 16:30: Patient is seen and examined. Failure of outpatient treatment of his COPD exacerbation. Plan today is to admit. Solumedrol ordered (patient not allergic). Duoneb. Baseline labs. 17:30: Hour-long continuous nebulized treatment in progress. The patient is improving but only mildly. He failed outpatient therapy. Plan is to admit. Patient is agreeable. I discussed this patient with Dr. Craft. The patient's primary laboratory assistant is at [facility], Dr. Duncan. Consult was placed for him to be evaluated as inpatient by pulmonology here. Dragon Disclaimer Dragon Disclaimer This electronic medical record was generated, in whole or in part, using a voice recognition dictation system. Departure Departure Referrals: UNKNOWN PCP NAME (PCP) ACE BARRY DO Oct 13, 2017 16:58
[2017-10-13 17:10] LABS: CALCIUM 8.8 mg/dL (8.5-10.1); CREATININE 1.3 mg/dL (0.7-1.3); GFR 68.6; POTASSIUM 3.3 mmol/L (3.5-5.1)
[2017-10-13] MEDS ORDERED: ACETAMINOPHEN 325 MG TABLET. PO PRN (17:30)
[2017-10-13] MEDS ORDERED: ONDANSETRON PF 4 MG/2 ML VIAL. IV PRN ×2 (17:30→17:45)
[2017-10-13] MEDS ORDERED: MORPHINE SULFATE 4 MG/ML VIAL. IV ONE (17:30)
[2017-10-13] MEDS ORDERED: ALBUTEROL SULFATE 2.5 MG/3 ML NEBU. NEB PRN ×2 (17:45→18:15)
[2017-10-13] MEDS ORDERED: NON FORMULARY ITEM (Albuterol Sulfate (Proair Hfa Inhaler) 2 PUFF) INH PRN (17:45)
[2017-10-13] MEDS ORDERED: diphenhydrAMINE HCL 25 MG CAPSULE PO PRN (17:45)
[2017-10-13] MEDS ORDERED: NICOTINE 21MG PATCH. TD PRN (17:45)
[2017-10-13] MEDS ORDERED: guaiFENesin DM 200MG/20MG 10 ML SYRUP PO PRN (17:45)
[2017-10-13] MEDS ORDERED: LABETALOL 20 MG/4 ML DISP.SYRIN. IVP PRN (17:45)
[2017-10-13] MEDS ORDERED: IBUPROFEN 600 MG TABLET. PO PRN (17:45)
[2017-10-13 18:30] VITALS: BP 128/80
[2017-10-13] MEDS ORDERED: ALBUTEROL SULFATE 2.5 MG/3 ML NEBU. NEB ONE (18:45)
[2017-10-13] MEDS: guaiFENesin/CODEINE 100mg/10mg 5 ML LIQUID PO SCH (19:24)
[2017-10-13] MEDS: IPRATRPIUM/ALBUTEROL 0.5/2.5MG 3 ML NEBU. NEB SCH (19:50)
[2017-10-13] MEDS ORDERED: IPRATRPIUM/ALBUTEROL 0.5/2.5MG 3 ML NEBU. NEB SCH (20:00)
[2017-10-13] MEDS: ATORVASTATIN CALCIUM 10 MG TABLET. PO SCH (20:37)
[2017-10-13 23:28] VITALS: BP 117/81
[2017-10-14] MEDS: guaiFENesin/CODEINE 100mg/10mg 5 ML LIQUID PO SCH ×4 (00:19→17:26)
[2017-10-14] MEDS: MORPHINE SULFATE 4 MG/ML VIAL. IV PRN ×3 (00:19→13:59)
[2017-10-14 03:14] VITALS: BP 154/84
[2017-10-14 04:20] LABS: BASO % 0 % (0-3); EOS % 0 % (0-3); HEMATOCRIT 40.2 % (39.0-53.0); HEMOGLOBIN 13.9 g/dL (13.0-17.5); LYMPH # 0.3 x10^3/uL (1.0-4.8); LYMPH % 3 % (24-48); MEAN CORPUSCULAR HEMOGLOBIN 31 pg (25-35); MEAN CORPUSCULAR HGB CONC 35 g/dL (31-37); MEAN CORPUSCULAR VOLUME 91 fL (79-100); MONO # 0.5 x10^3/uL (0.0-1.1); MONO % 4 % (0-9); NEUT # 12.1 x10^3uL (1.8-7.7); NEUT % 94 % (31-73); PLATELET COUNT 140 x10^3/uL (140-400); RED BLOOD COUNT 4.43 x10^6/uL (4.30-5.70); RED CELL DISTRIBUTION WIDTH 14.1 % (11.5-14.5); WHITE BLOOD COUNT 12.9 x10^3/uL (4.0-11.0)
[2017-10-14 04:41] LABS: CALCIUM 9.3 mg/dL (8.5-10.1); CREATININE 1.2 mg/dL (0.7-1.3); GFR 75.2
[2017-10-14 07:00] VITALS: BP 138/91
[2017-10-14] MEDS: IPRATRPIUM/ALBUTEROL 0.5/2.5MG 3 ML NEBU. NEB SCH ×4 (07:44→19:57)
[2017-10-14] MEDS: ASPIRIN ENTERIC COATED 81 MG TABLET.DR. PO SCH (08:10)
[2017-10-14] MEDS: FAMOTIDINE 20 MG TABLET. PO SCH (08:10)
[2017-10-14] MEDS: LISINOPRIL 10 MG TABLET PO SCH (08:13)
[2017-10-14] MEDS: FUROSEMIDE 20 MG TABLET PO SCH (08:13)
[2017-10-14] MEDS: LACTULOSE 20 GM/30 ML SOLUTION. PO SCH (08:13)
[2017-10-14] MEDS ORDERED: NON FORMULARY ITEM (Tiotropium Bromide (Spiriva) 2 INH) IH SCH (09:00)
--- NOTE | 2017-10-14 10:49 | PDOC ---
PULMONARY PROGRESS NOTES Vitals Vital Signs Date Time Temp Pulse Resp B/P (MAP) Pulse Ox O2 Delivery O2 Flow Rate FiO2 10/14/17 08:18 18 Nasal Cannula 2.5 10/14/17 08:13 82 138/91 10/14/17 07:46 98 10/14/17 07:00 98.0 98.0 General: Alert Cardiovascular: S1, S2 Abdomen: Soft, Non-tender Extremities: Other Labs Laboratory Tests Test 10/13/17 16:20 10/13/17 16:50 10/14/17 03:25 White Blood Count 13.3 x10^3/uL (4.0-11.0) 12.9 x10^3/uL (4.0-11.0) Red Blood Count 4.52 x10^6/uL (4.30-5.70) 4.43 x10^6/uL (4.30-5.70) Hemoglobin 14.0 g/dL (13.0-17.5) 13.9 g/dL (13.0-17.5) Hematocrit 41.3 % (39.0-53.0) 40.2 % (39.0-53.0) Mean Corpuscular Volume 92 fL (79-100) 91 fL (79-100) Mean Corpuscular Hemoglobin 31 pg (25-35) 31 pg (25-35) Mean Corpuscular Hemoglobin Concent 34 g/dL (31-37) 35 g/dL (31-37) Red Cell Distribution Width 13.9 % (11.5-14.5) 14.1 % (11.5-14.5) Platelet Count 157 x10^3/uL (140-400) 140 x10^3/uL (140-400) Neutrophils (%) (Auto) 93 % (31-73) 94 % (31-73) Lymphocytes (%) (Auto) 2 % (24-48) 3 % (24-48) Monocytes (%) (Auto) 4 % (0-9) 4 % (0-9) Eosinophils (%) (Auto) 0 % (0-3) 0 % (0-3) Basophils (%) (Auto) 0 % (0-3) 0 % (0-3) Neutrophils # (Auto) 12.3 x10^3uL (1.8-7.7) 12.1 x10^3uL (1.8-7.7) Lymphocytes # (Auto) 0.3 x10^3/uL (1.0-4.8) 0.3 x10^3/uL (1.0-4.8) Monocytes # (Auto) 0.5 x10^3/uL (0.0-1.1) 0.5 x10^3/uL (0.0-1.1) Eosinophils # (Auto) 0.0 x10^3/uL (0.0-0.7) 0.0 x10^3/uL (0.0-0.7) Basophils # (Auto) 0.1 x10^3/uL (0.0-0.2) 0.0 x10^3/uL (0.0-0.2) Segmented Neutrophils % 89 % (35-66) Band Neutrophils % 2 % (0-9) Lymphocytes % 5 % (24-48) Monocytes % 4 % (0-10) Platelet Estimate Adequate (ADEQUATE) Sodium Level 139 mmol/L (136-145) 135 mmol/L (136-145) Potassium Level 3.3 mmol/L (3.5-5.1) 4.0 mmol/L (3.5-5.1) Chloride Level 101 mmol/L (98-107) 98 mmol/L (98-107) Carbon Dioxide Level 32 mmol/L (21-32) 31 mmol/L (21-32) Anion Gap 6 (6-14) 6 (6-14) Blood Urea Nitrogen 17 mg/dL (8-26) 17 mg/dL (8-26) Creatinine 1.3 mg/dL (0.7-1.3) 1.2 mg/dL (0.7-1.3) Estimated GFR (Cockcroft-Gault) 68.6 75.2 Glucose Level 205 mg/dL (70-99) 168 mg/dL (70-99) Calcium Level 8.8 mg/dL (8.5-10.1) 9.3 mg/dL (8.5-10.1) Troponin I Quantitative < 0.017 ng/mL (0.000-0.055) ZL-Sby-H-Type Natriuretic Peptide 69 pg/mL (0-124) Laboratory Tests Test 10/13/17 16:20 9/1/18 16:50 10/14/17 03:25 White Blood Count 13.3 x10^3/uL (4.0-11.0) 12.9 x10^3/uL (4.0-11.0) Red Blood Count 4.52 x10^6/uL (4.30-5.70) 4.43 x10^6/uL (4.30-5.70) Hemoglobin 14.0 g/dL (13.0-17.5) 13.9 g/dL (13.0-17.5) Hematocrit 41.3 % (39.0-53.0) 40.2 % (39.0-53.0) Mean Corpuscular Volume 92 fL (79-100) 91 fL (79-100) Mean Corpuscular Hemoglobin 31 pg (25-35) 31 pg (25-35) Mean Corpuscular Hemoglobin Concent 34 g/dL (31-37) 35 g/dL (31-37) Red Cell Distribution Width 13.9 % (11.5-14.5) 14.1 % (11.5-14.5) Platelet Count 157 x10^3/uL (140-400) 140 x10^3/uL (140-400) Neutrophils (%) (Auto) 93 % (31-73) 94 % (31-73) Lymphocytes (%) (Auto) 2 % (24-48) 3 % (24-48) Monocytes (%) (Auto) 4 % (0-9) 4 % (0-9) Eosinophils (%) (Auto) 0 % (0-3) 0 % (0-3) Basophils (%) (Auto) 0 % (0-3) 0 % (0-3) Neutrophils # (Auto) 12.3 x10^3uL (1.8-7.7) 12.1 x10^3uL (1.8-7.7) Lymphocytes # (Auto) 0.3 x10^3/uL (1.0-4.8) 0.3 x10^3/uL (1.0-4.8) Monocytes # (Auto) 0.5 x10^3/uL (0.0-1.1) 0.5 x10^3/uL (0.0-1.1) Eosinophils # (Auto) 0.0 x10^3/uL (0.0-0.7) 0.0 x10^3/uL (0.0-0.7) Basophils # (Auto) 0.1 x10^3/uL (0.0-0.2) 0.0 x10^3/uL (0.0-0.2) Segmented Neutrophils % 89 % (35-66) Band Neutrophils % 2 % (0-9) Lymphocytes % 5 % (24-48) Monocytes % 4 % (0-10) Platelet Estimate Adequate (ADEQUATE) Sodium Level 139 mmol/L (136-145) 135 mmol/L (136-145) Potassium Level 3.3 mmol/L (3.5-5.1) 4.0 mmol/L (3.5-5.1) Chloride Level 101 mmol/L (98-107) 98 mmol/L (98-107) Carbon Dioxide Level 32 mmol/L (21-32) 31 mmol/L (21-32) Anion Gap 6 (6-14) 6 (6-14) Blood Urea Nitrogen 17 mg/dL (8-26) 17 mg/dL (8-26) Creatinine 1.3 mg/dL (0.7-1.3) 1.2 mg/dL (0.7-1.3) Estimated GFR (Cockcroft-Gault) 68.6 75.2 Glucose Level 205 mg/dL (70-99) 168 mg/dL (70-99) Calcium Level 8.8 mg/dL (8.5-10.1) 9.3 mg/dL (8.5-10.1) Troponin I Quantitative < 0.017 ng/mL (0.000-0.055) NY-Qsv-Y-Type Natriuretic Peptide 69 pg/mL (0-124) Medications Active Scripts Medications Dose Route/Sig Max Daily Dose Days Date Category Dose Instructions Guaifenesin-Codeine Syrup (Guaifenesin/Codeine Phosphate) 118 Ml Liquid 5 Ml PO Q6HRS 10/10/17 Rx Prednisone 50 Mg Tablet 1 Tab PO DAILY 10/10/17 Rx Proair Hfa Inhaler (Albuterol Sulfate) 8.5 Gm Hfa.aer.ad 2 Puff INH PRN Q6HRS PRN 09/10/17 Rx Furosemide 20 Mg Tablet 1 Tab PO DAILY 09/10/17 Rx Prednisone (Prednisone) 10 Mg Tablet 10 Mg PO DAILY 09/10/17 Rx Take 5 tablets daily for the next 5 days. After that, resume her normal dose of one tablet daily. Lactulose 20 Gm/30 Ml Solution 20 Gm PO DAILY 08/25/17 Rx Doxycycline Hyclate 100 Mg Tablet 100 Mg PO BID 10 08/24/17 Rx Azithromycin Tablet (Azithromycin) 250 Mg Tablet 250 Mg PO DAILY 08/21/17 Reported Lisinopril 10 Mg Tablet 1 Tab PO DAILY 08/21/17 Reported Prednisone 20 Mg Tablet 10 Mg PO DAILY 08/21/17 Reported Atorvastatin Calcium 10 Mg Tablet 10 Mg PO HS 08/21/17 Reported Albuterol Sulfate Neb Soln (Albuterol Sulfate) 2.5 Mg/3 Ml Vial.neb 1 Vial NEB PRN Q4HRS 07/10/17 Rx Famotidine 20 Mg Tablet 20 Mg PO DAILY 30 06/14/17 Rx Furosemide 20 Mg Tablet 0.5 Tab PO DAILY 06/09/17 Reported Aspir 81 (Aspirin) 81 Mg Tablet.dr 1 Tab PO DAILY 06/09/17 Reported Foltx Tablet (B12/Levomefolate Calcium/B-6) 1 Each Tablet 1 Each PO 06/09/17 Reported Albuterol Sulfate Neb Soln (Albuterol Sulfate) 0.63 Mg/3 Ml Vial.neb 0.63 Mg NEB PRN Q4HRS PRN 05/30/17 Rx Proair Hfa Inhaler (Albuterol Sulfate) 8.5 Gm Hfa.aer.ad 2 Puff INH Q4HRS PRN 02/09/16 Rx Symbicort 160-4.5 Mcg Inhaler (Budesonide/Formoterol Fumarate) 10.2 Gm Hfa.aer.ad 2 Puff IH BID 09/21/15 Reported Spiriva (Tiotropium [place]) 18 Mcg Cap.w.dev 2 Inh IH DAILY 09/21/15 Reported Impression . AECOPD CONTINUE THE SAME SCOTT COOK MD Oct 14, 2017 10:49
--- NOTE | 2017-10-14 10:56 | PDOC1 ---
History and Physical Date of Admission Date of Admission DATE: 10/14/17 TIME: 10:52 Identification/Chief Complaint Chief Complaint could not breathe Source Source: Caregiver, Chart review, Patient History of Present Illness History of Present Illness 57-year-old -Citizen Of [place] male, history of COPD. On O2 as needed, comes in to the ER because he could not breathe. Needing O2 more than usual. He has coughing fits but no chronic dry cough. Wheezing on admission but much better now but still SOA at short distances. Follows with pulmonary over at [place]. Chest x-ray is negative for pneumonia. We are doing empiric antibiotic, DuoNeb's , cough medicines etc. Has not yet ambulated today to see if he's S OA but he is sitting up bed. I have consulted pulmonary. Continue present management. Not ready to DC yet today. NO leukocytosis, no fever. Quit cigarettes 2014 Past Medical History Cardiovascular: CHF, HTN, Hyperlipidemia, Pulmonary hypertension Pulmonary: COPD, Pneumonia CENTRAL NERVOUS SYSTEM: Other GI: Other Heme/Onc: No pertinent hx Hepatobiliary: Hep A/B/C Psych: No pertinent hx Musculoskeletal: low back pain, Osteoarthritis Rheumatologic: No pertinent hx Infectious disease: No pertinent hx Renal/: No pertinent hx Endocrine: No pertinent hx Past Surgical History Past Surgical History: Hernia Repair Family History Family History: Heart Disease Social History Smoke: Quit ALCOHOL: none Drugs: None Current Problem List Problem List Problems Medical Problems: (1) COPD with exacerbation Status: Acute Current Medications Current Medications Current Medications Methylprednisolone Sodium Succinate (SOLU-Medrol 125MG VIAL) 125 mg 1X ONCE IV Last administered on 10/13/17at 17:04; Start 10/13/17 at 16:30; Stop 10/13/17 at 16:34; Status DC Albuterol/ Ipratropium (Duoneb) 3 ml 1X ONCE NEB Last administered on at 16:45; Start 10/13/17 at 16:30; Stop 10/13/17 at 16:35; Status DC Albuterol Sulfate (Ventolin Neb Soln) 10 mg 1X ONCE CONT NEB Last administered on 10/13/17at 16:45; Start 10/13/17 at 16:45; Stop 10/13/17 at 16:46; Status DC Morphine Sulfate (Morphine Sulfate) 4 mg 1X ONCE IV Last administered on at 19:24; Start 10/13/17 at 17:30; Stop 10/13/17 at 17:31; Status DC Ondansetron HCl (Zofran) 4 mg PRN Q8HRS PRN IV NAUSEA/VOMITING; Start 10/13/17 at 17:30; Stop 10/13/17 at 17:37; Status DC Morphine Sulfate (Morphine Sulfate) 4 mg PRN Q2HR PRN IV PAIN Last administered on 10/14/17at 08:18; Start 10/13/17 at 17:30 Acetaminophen (Tylenol) 650 mg PRN Q4HRS PRN PO FEVER; Start 10/13/17 at 17:30; Stop 10/14/17 at 17:29 Albuterol/ Ipratropium (Duoneb) 3 ml RTQID NEB ; Start 10/13/17 at 20:00; Stop at 19:59; Status Cancel Ondansetron HCl (Zofran) 4 mg PRN Q6HRS PRN IV NAUSEA/VOMITING; Start 10/13/17 at 17:45 Ibuprofen (Motrin) 600 mg PRN Q6HRS PRN PO INFLAMMATION; Start 10/13/17 at 17:45 Guaifenesin (Robitussin Dm) 10 ml PRN Q6HRS PRN PO COUGH; Start 10/13/17 at 17: 45 Diphenhydramine HCl (Benadryl) 25 mg PRN QHS PRN PO INSOMNIA; Start 10/13/17 at 17:45 Labetalol HCl (Normodyne Iv Push) 20 mg PRN Q2HR PRN IVP HYPERTENSION, SEE COMMENTS; Start 10/13/17 at 17:45 Acetaminophen/ Hydrocodone Bitart (Lortab 5/325) 1 tab PRN Q4HRS PRN PO MODERATE PAIN; Start 10/13/17 at 17:45 Albuterol Sulfate (Ventolin Neb Soln) 2.5 mg PRN Q4HRS PRN NEB SHORTNESS OF BREATH Last administered on 10/14/17at 02:03; Start 10/13/17 at 17:45 Aspirin (Ecotrin) 81 mg DAILY PO Last administered on 10/14/17at 08:10; Start 10/14/17 at 09:00 Atorvastatin Calcium (Lipitor) 10 mg HS PO Last administered on 10/13/17at 20:37 ; Start 10/13/17 at 21:00 Famotidine (Pepcid) 20 mg DAILY PO Last administered on 10/14/17at 08:10; Start 10/14/17 at 09:00 Furosemide (Lasix) 20 mg DAILY PO Last administered on 10/14/17at 08:13; Start at 09:00 Lactulose (Lactulose) 20 gm DAILY PO Last administered on 10/14/17at 08:13; Start 10/14/17 at 09:00 Lisinopril (Prinivil) 10 mg DAILY PO Last administered on 10/14/17at 08:13; Start 10/14/17 at 09:00 Non-Formulary Medication (Albuterol Sulfate (Proair Hfa Inhaler)) 2 puff Q4HRS PRN INH SHORTNESS OF BREATH; Start 10/13/17 at 17:45; Status UNV Guaifenesin/ Codeine Phosphate (Robitussin Ac) 5 ml Q6HRS PO Last administered on 10/14/17at 06:04; Start 10/13/17 at 18:15 Non-Formulary Medication (Tiotropium [place] (Spiriva)) 2 inh DAILY IH ; Start 10/14/17 at 09:00; Status UNV Nicotine (Nicoderm Cq 21mg) 1 patch PRN DAILY PRN TD SMOKING CESSATION; Start 10/13/17 at 17:45 Albuterol/ Ipratropium (Duoneb) 3 ml RTQID NEB Last administered on 10/14/17at 07 :44; Start 10/13/17 at 20:00 Albuterol Sulfate (Ventolin Neb Soln) 2.5 mg PRN Q4HRS PRN NEB SHORTNESS OF BREATH; Start 10/13/17 at 18:15; Status UNV Albuterol Sulfate (Ventolin Neb Soln) 10 mg 1X ONCE CONT NEB ; Start 10/13/17 at 18:15; Stop 10/13/17 at 18:25; Status DC Albuterol Sulfate (Ventolin Neb Soln) 5 mg 1X ONCE NEB ; Start 10/13/17 at 18:45 ; Stop 10/13/17 at 18:46; Status DC Active Scripts Active Guaifenesin-Codeine Syrup (Guaifenesin/Codeine Phosphate) 118 Ml Liquid 5 Ml PO Q6HRS Prednisone 50 Mg Tablet 1 Tab PO DAILY Proair Hfa Inhaler (Albuterol Sulfate) 8.5 Gm Hfa.aer.ad 2 Puff INH PRN Q6HRS PRN Furosemide 20 Mg Tablet 1 Tab PO DAILY Prednisone (Prednisone) 10 Mg Tablet 10 Mg PO DAILY Take 5 tablets daily for the next 5 days. After that, resume her normal dose of one tablet daily. Lactulose 20 Gm/30 Ml Solution 20 Gm PO DAILY Doxycycline Hyclate 100 Mg Tablet 100 Mg PO BID 10 Days Albuterol Sulfate Neb Soln (Albuterol Sulfate) 2.5 Mg/3 Ml Vial.neb 1 Vial NEB PRN Q4HRS Famotidine 20 Mg Tablet 20 Mg PO DAILY 30 Days Albuterol Sulfate Neb Soln (Albuterol Sulfate) 0.63 Mg/3 Ml Vial.neb 0.63 Mg NEB PRN Q4HRS PRN Proair Hfa Inhaler (Albuterol Sulfate) 8.5 Gm Hfa.aer.ad 2 Puff INH Q4HRS PRN Reported Azithromycin Tablet (Azithromycin) 250 Mg Tablet 250 Mg PO DAILY Lisinopril 10 Mg Tablet 1 Tab PO DAILY Prednisone 20 Mg Tablet 10 Mg PO DAILY Atorvastatin Calcium 10 Mg Tablet 10 Mg PO HS Furosemide 20 Mg Tablet 0.5 Tab PO DAILY Aspir 81 (Aspirin) 81 Mg Tablet.dr 1 Tab PO DAILY Foltx Tablet (B12/Levomefolate Calcium/B-6) 1 Each Tablet 1 Each PO Symbicort 160-4.5 Mcg Inhaler (Budesonide/Formoterol Fumarate) 10.2 Gm Hfa.aer.ad 2 Puff IH BID Spiriva (Tiotropium [place]) 18 Mcg Cap.w.dev 2 Inh IH DAILY Allergies Allergies: Coded Allergies: No Known Drug Allergies (Unverified , 10/13/17) ROS Review of System As per history of present illness, the rest of ROS 14 point negative Physical Exam General: Alert, Oriented X3, Cooperative, No acute distress HEENT: Atraumatic, PERRLA, EOMI, Mucous membr. moist/pink Lungs: Normal air movement, Other (diminished bases, wheezing posterior auscultation, no crackles) Heart: S1S2, RRR, no thrills, no rubs, no gallops, no murmurs Cardiovascular: S1, S2 Rectal Exam: not examined PELVIC: Nml ext genitalia Extremities: No clubbing, No cyanosis, No edema, Normal pulses, No tenderness/ swelling Skin: No rashes, No breakdown, No significant lesion Neuro: Normal gait, Normal speech, Strength at 5/5 X4 ext, Normal tone, Sensation intact, Cranial nerves 3-12 NL, Reflexes 2+ Psych/Mental Status: Mental status NL, Mood NL Vitals Vitals Vital Signs Date Time Temp Pulse Resp B/P (MAP) Pulse Ox O2 Delivery O2 Flow Rate FiO2 10/14/17 08:18 18 Nasal Cannula 2.5 10/14/17 08:13 82 138/91 10/14/17 07:46 98 10/14/17 07:00 98.0 98.0 Labs Labs Laboratory Tests Test 10/13/17 16:20 10/13/17 16:50 10/14/17 03:25 White Blood Count 13.3 x10^3/uL (4.0-11.0) 12.9 x10^3/uL (4.0-11.0) Red Blood Count 4.52 x10^6/uL (4.30-5.70) 4.43 x10^6/uL (4.30-5.70) Hemoglobin 14.0 g/dL (13.0-17.5) 13.9 g/dL (13.0-17.5) Hematocrit 41.3 % (39.0-53.0) 40.2 % (39.0-53.0) Mean Corpuscular Volume 92 fL (79-100) 91 fL (79-100) Mean Corpuscular Hemoglobin 31 pg (25-35) 31 pg (25-35) Mean Corpuscular Hemoglobin Concent 34 g/dL (31-37) 35 g/dL (31-37) Red Cell Distribution Width 13.9 % (11.5-14.5) 14.1 % (11.5-14.5) Platelet Count 157 x10^3/uL (140-400) 140 x10^3/uL (140-400) Neutrophils (%) (Auto) 93 % (31-73) 94 % (31-73) Lymphocytes (%) (Auto) 2 % (24-48) 3 % (24-48) Monocytes (%) (Auto) 4 % (0-9) 4 % (0-9) Eosinophils (%) (Auto) 0 % (0-3) 0 % (0-3) Basophils (%) (Auto) 0 % (0-3) 0 % (0-3) Neutrophils # (Auto) 12.3 x10^3uL (1.8-7.7) 12.1 x10^3uL (1.8-7.7) Lymphocytes # (Auto) 0.3 x10^3/uL (1.0-4.8) 0.3 x10^3/uL (1.0-4.8) Monocytes # (Auto) 0.5 x10^3/uL (0.0-1.1) 0.5 x10^3/uL (0.0-1.1) Eosinophils # (Auto) 0.0 x10^3/uL (0.0-0.7) 0.0 x10^3/uL (0.0-0.7) Basophils # (Auto) 0.1 x10^3/uL (0.0-0.2) 0.0 x10^3/uL (0.0-0.2) Segmented Neutrophils % 89 % (35-66) Band Neutrophils % 2 % (0-9) Lymphocytes % 5 % (24-48) Monocytes % 4 % (0-10) Platelet Estimate Adequate (ADEQUATE) Sodium Level 139 mmol/L (136-145) 135 mmol/L (136-145) Potassium Level 3.3 mmol/L (3.5-5.1) 4.0 mmol/L (3.5-5.1) Chloride Level 101 mmol/L (98-107) 98 mmol/L (98-107) Carbon Dioxide Level 32 mmol/L (21-32) 31 mmol/L (21-32) Anion Gap 6 (6-14) 6 (6-14) Blood Urea Nitrogen 17 mg/dL (8-26) 17 mg/dL (8-26) Creatinine 1.3 mg/dL (0.7-1.3) 1.2 mg/dL (0.7-1.3) Estimated GFR (Cockcroft-Gault) 68.6 75.2 Glucose Level 205 mg/dL (70-99) 168 mg/dL (70-99) Calcium Level 8.8 mg/dL (8.5-10.1) 9.3 mg/dL (8.5-10.1) Troponin I Quantitative < 0.017 ng/mL (0.000-0.055) HR-Kon-R-Type Natriuretic Peptide 69 pg/mL (0-124) Laboratory Tests Test 10/13/17 16:20 10/13/17 16:50 10/14/17 03:25 White Blood Count 13.3 x10^3/uL (4.0-11.0) 12.9 x10^3/uL (4.0-11.0) Red Blood Count 4.52 x10^6/uL (4.30-5.70) 4.43 x10^6/uL (4.30-5.70) Hemoglobin 14.0 g/dL (13.0-17.5) 13.9 g/dL (13.0-17.5) Hematocrit 41.3 % (39.0-53.0) 40.2 % (39.0-53.0) Mean Corpuscular Volume 92 fL (79-100) 91 fL (79-100) Mean Corpuscular Hemoglobin 31 pg (25-35) 31 pg (25-35) Mean Corpuscular Hemoglobin Concent 34 g/dL (31-37) 35 g/dL (31-37) Red Cell Distribution Width 13.9 % (11.5-14.5) 14.1 % (11.5-14.5) Platelet Count 157 x10^3/uL (140-400) 140 x10^3/uL (140-400) Neutrophils (%) (Auto) 93 % (31-73) 94 % (31-73) Lymphocytes (%) (Auto) 2 % (24-48) 3 % (24-48) Monocytes (%) (Auto) 4 % (0-9) 4 % (0-9) Eosinophils (%) (Auto) 0 % (0-3) 0 % (0-3) Basophils (%) (Auto) 0 % (0-3) 0 % (0-3) Neutrophils # (Auto) 12.3 x10^3uL (1.8-7.7) 12.1 x10^3uL (1.8-7.7) Lymphocytes # (Auto) 0.3 x10^3/uL (1.0-4.8) 0.3 x10^3/uL (1.0-4.8) Monocytes # (Auto) 0.5 x10^3/uL (0.0-1.1) 0.5 x10^3/uL (0.0-1.1) Eosinophils # (Auto) 0.0 x10^3/uL (0.0-0.7) 0.0 x10^3/uL (0.0-0.7) Basophils # (Auto) 0.1 x10^3/uL (0.0-0.2) 0.0 x10^3/uL (0.0-0.2) Segmented Neutrophils % 89 % (35-66) Band Neutrophils % 2 % (0-9) Lymphocytes % 5 % (24-48) Monocytes % 4 % (0-10) Platelet Estimate Adequate (ADEQUATE) Sodium Level 139 mmol/L (136-145) 135 mmol/L (136-145) Potassium Level 3.3 mmol/L (3.5-5.1) 4.0 mmol/L (3.5-5.1) Chloride Level 101 mmol/L (98-107) 98 mmol/L (98-107) Carbon Dioxide Level 32 mmol/L (21-32) 31 mmol/L (21-32) Anion Gap 6 (6-14) 6 (6-14) Blood Urea Nitrogen 17 mg/dL (8-26) 17 mg/dL (8-26) Creatinine 1.3 mg/dL (0.7-1.3) 1.2 mg/dL (0.7-1.3) Estimated GFR (Cockcroft-Gault) 68.6 75.2 Glucose Level 205 mg/dL (70-99) 168 mg/dL (70-99) Calcium Level 8.8 mg/dL (8.5-10.1) 9.3 mg/dL (8.5-10.1) Troponin I Quantitative < 0.017 ng/mL (0.000-0.055) XS-Hzj-O-Type Natriuretic Peptide 69 pg/mL (0-124) VTE Prophylaxis Ordered VTE Prophylaxis Devices: Yes VTE Pharmacological Prophylaxi: Yes Assessment/Plan Assessment/Plan Acute bronchitis, no pneumonia on chest x-ray COPD exacerbation, home O2 dependent as needed [id number] 2014 SIRS secondary to above, no sepsis Hypertension, controlled Plan: Admit 2 midnight DuoNeb's, cough medicine Steroids pulmo consult Home meds have been reconciled gustabo RINCON and RAI Julien MD Oct 14, 2017 10:56
[2017-10-14 11:00] VITALS: BP 142/84
[2017-10-14] MEDS: HYDROcodone/APAP 5/325MG 1 TAB TABLET PO PRN ×2 (12:24→17:26)
[2017-10-14 15:00] VITALS: BP 138/89
[2017-10-14 19:00] VITALS: BP 125/75
[2017-10-14] MEDS: ATORVASTATIN CALCIUM 10 MG TABLET. PO SCH (20:37)
[2017-10-14 23:05] VITALS: BP 142/82
--- NOTE | 2017-10-14 23:31 | CONS ---
DATE OF CONSULTATION: 10/14/2017 ATTENDING PHYSICIAN: Em Craft M.D. REASON FOR CONSULTATION: The patient was seen in pulmonary consultation at the request of Dr. Craft for [id number] respiratory failure, increasing shortness of air. HISTORY OF PRESENT ILLNESS: The patient is a 57-year-old with severe COPD, chronic respiratory failure on 3 liters of oxygen supplementation and had been seen in the Emergency Department 3 days ago and given some antibiotics and prednisone. He did not improve and subsequently, came back in through the Emergency Room. He states at home he was unable to complete full sentences. He was unable to move from one room to the other. He normally wears 3 liters of oxygen supplementation. He had a chest x-ray, which I personally reviewed revealing no acute infiltrates. He does have some severe emphysematous changes on previous CAT scan of the chest. He normally sees a carry out clerk at [facility]. He is also on chronic steroid use and Zithromax on a daily basis. REVIEW OF SYSTEMS: CONSTITUTIONAL: No fever or chills. EYES: No change in visual acuity. HEENT: No nasal congestion or sore throat. RESPIRATORY: As indicated above. CARDIOVASCULAR: As indicated above. GASTROINTESTINAL: No nausea, vomiting or diarrhea. GENITOURINARY: No dysuria or frequency. MUSCULOSKELETAL: No localized muscle aches or joint pains. SKIN: No new skin rashes. NEUROLOGICAL: No headaches, diplopia or blurred vision. SOCIAL HISTORY: Socially, he quit tobacco in 2014. FAMILY HISTORY: No family history of early lung disorders. CURRENT MEDICATIONS: List was reviewed. ALLERGIES: No known drug allergies. PHYSICAL EXAMINATION: GENERAL: The patient was in no respiratory distress. VITAL SIGNS: At one point, he required 4 liters of oxygen supplementation. He is currently back down to his normal at 3. HEENT: Eyes, the sclerae were nonicteric. NECK: Jugular venous distention was not elevated. No lymphadenopathy. CHEST: Full expansion. LUNGS: Very poor airway flow with prolonged expiratory phase and wheeze. CARDIOVASCULAR: Regular rate and rhythm with S1 and S2. No S3. ABDOMEN: Soft, nontender and nondistended. EXTREMITIES: No clubbing or cyanosis. Minimal edema. NEUROLOGICAL: The patient was awake, alert and following commands. A detailed neuro exam was not performed. LABORATORY DATA: Labs were reviewed. White count was elevated. Hemoglobin and hematocrit were noted. Electrolytes were noted. IMPRESSION: 1. [id number] respiratory failure. 2. Acute exacerbation of chronic obstructive pulmonary disease. 3. Acute nonspecific bronchitis. 4. Severe bullous emphysema seen on previous scan of the chest. I do appreciate the privilege in sharing in the patient's care. SCOTT COOK MD DR: MAVERICK/efrain JOB#: [id number] / [id number]
[2017-10-15] MEDS: guaiFENesin/CODEINE 100mg/10mg 5 ML LIQUID PO SCH ×5 (00:07→23:52)
[2017-10-15 03:05] VITALS: BP 117/82
[2017-10-15] MEDS: HYDROcodone/APAP 5/325MG 1 TAB TABLET PO PRN ×2 (06:14→20:43)
[2017-10-15] MEDS: IPRATRPIUM/ALBUTEROL 0.5/2.5MG 3 ML NEBU. NEB SCH ×4 (06:57→19:40)
[2017-10-15 07:00] VITALS: BP 108/66
[2017-10-15] MEDS: LACTULOSE 20 GM/30 ML SOLUTION. PO SCH (08:38)
[2017-10-15] MEDS: LISINOPRIL 10 MG TABLET PO SCH (08:42)
[2017-10-15] MEDS: ASPIRIN ENTERIC COATED 81 MG TABLET.DR. PO SCH (08:43)
[2017-10-15] MEDS: FUROSEMIDE 20 MG TABLET PO SCH (08:43)
[2017-10-15] MEDS: FAMOTIDINE 20 MG TABLET. PO SCH (08:43)
[2017-10-15 11:00] VITALS: BP 105/70
--- NOTE | 2017-10-15 12:59 | PDOC ---
PROGRESS NOTES Chief Complaint Chief Complaint Acute bronchitis, no pneumonia on chest x-ray COPD exacerbation, home O2 dependent as needed [id number] 2014 SIRS secondary to above, no sepsis Hypertension, controlled Plan: fu with pulm cont home meds, on lasix low dose not on lisinopril at home refused to take today, i told nurse if BP >140, needs to take it since it was high yesterday add prednisone cont duoneb, albuterol prn dvt ppx History of Present Illness History of Present Illness ROS: no fever, chills chest pain not feeling better still cough, some sob Vitals Vitals Vital Signs Date Time Temp Pulse Resp B/P (MAP) Pulse Ox O2 Delivery O2 Flow Rate FiO2 10/15/17 11:18 95 Nasal Cannula 2.0 10/15/17 11:00 97.9 102 20 105/70 (82) 97.9 Physical Exam General: Alert, Oriented X3, Cooperative, No acute distress Heart: Regular rate, Normal S1, Normal S2 Lungs: Other (bl decreased bs with mild wheezing) Abdomen: Normal bowel sounds, Soft, No tenderness Extremities: No clubbing, No cyanosis, No edema, Normal pulses, No tenderness/ swelling Skin: No rashes, No breakdown, No significant lesion Assessment and Plan Assessmemt and Plan Problems Medical Problems: (1) COPD with exacerbation Status: Acute Comment Review of Relevant I have reviewed the following items franki (where applicable) has been applied. Labs Laboratory Tests Test 10/13/17 16:20 10/13/17 16:50 10/14/17 03:25 White Blood Count 13.3 x10^3/uL (4.0-11.0) 12.9 x10^3/uL (4.0-11.0) Red Blood Count 4.52 x10^6/uL (4.30-5.70) 4.43 x10^6/uL (4.30-5.70) Hemoglobin 14.0 g/dL (13.0-17.5) 13.9 g/dL (13.0-17.5) Hematocrit 41.3 % (39.0-53.0) 40.2 % (39.0-53.0) Mean Corpuscular Volume 92 fL (79-100) 91 fL (79-100) Mean Corpuscular Hemoglobin 31 pg (25-35) 31 pg (25-35) Mean Corpuscular Hemoglobin Concent 34 g/dL (31-37) 35 g/dL (31-37) Red Cell Distribution Width 13.9 % (11.5-14.5) 14.1 % (11.5-14.5) Platelet Count 157 x10^3/uL (140-400) 140 x10^3/uL (140-400) Neutrophils (%) (Auto) 93 % (31-73) 94 % (31-73) Lymphocytes (%) (Auto) 2 % (24-48) 3 % (24-48) Monocytes (%) (Auto) 4 % (0-9) 4 % (0-9) Eosinophils (%) (Auto) 0 % (0-3) 0 % (0-3) Basophils (%) (Auto) 0 % (0-3) 0 % (0-3) Neutrophils # (Auto) 12.3 x10^3uL (1.8-7.7) 12.1 x10^3uL (1.8-7.7) Lymphocytes # (Auto) 0.3 x10^3/uL (1.0-4.8) 0.3 x10^3/uL (1.0-4.8) Monocytes # (Auto) 0.5 x10^3/uL (0.0-1.1) 0.5 x10^3/uL (0.0-1.1) Eosinophils # (Auto) 0.0 x10^3/uL (0.0-0.7) 0.0 x10^3/uL (0.0-0.7) Basophils # (Auto) 0.1 x10^3/uL (0.0-0.2) 0.0 x10^3/uL (0.0-0.2) Segmented Neutrophils % 89 % (35-66) Band Neutrophils % 2 % (0-9) Lymphocytes % 5 % (24-48) Monocytes % 4 % (0-10) Platelet Estimate Adequate (ADEQUATE) Sodium Level 139 mmol/L (136-145) 135 mmol/L (136-145) Potassium Level 3.3 mmol/L (3.5-5.1) 4.0 mmol/L (3.5-5.1) Chloride Level 101 mmol/L (98-107) 98 mmol/L (98-107) Carbon Dioxide Level 32 mmol/L (21-32) 31 mmol/L (21-32) Anion Gap 6 (6-14) 6 (6-14) Blood Urea Nitrogen 17 mg/dL (8-26) 17 mg/dL (8-26) Creatinine 1.3 mg/dL (0.7-1.3) 1.2 mg/dL (0.7-1.3) Estimated GFR (Cockcroft-Gault) 68.6 75.2 Glucose Level 205 mg/dL (70-99) 168 mg/dL (70-99) Calcium Level 8.8 mg/dL (8.5-10.1) 9.3 mg/dL (8.5-10.1) Troponin I Quantitative < 0.017 ng/mL (0.000-0.055) EK-Fph-G-Type Natriuretic Peptide 69 pg/mL (0-124) Medications Current Medications Methylprednisolone Sodium Succinate (SOLU-Medrol 125MG VIAL) 125 mg 1X ONCE IV Last administered on 10/13/17at 17:04; Start 10/13/17 at 16:30; Stop 10/13/17 at 16:34; Status DC Albuterol/ Ipratropium (Duoneb) 3 ml 1X ONCE NEB Last administered on at 16:45; Start 10/13/17 at 16:30; Stop 10/13/17 at 16:35; Status DC Albuterol Sulfate (Ventolin Neb Soln) 10 mg 1X ONCE CONT NEB Last administered on 10/13/17at 16:45; Start 10/13/17 at 16:45; Stop 10/13/17 at 16:46; Status DC Morphine Sulfate (Morphine Sulfate) 4 mg 1X ONCE IV Last administered on at 19:24; Start 10/13/17 at 17:30; Stop 10/13/17 at 17:31; Status DC Ondansetron HCl (Zofran) 4 mg PRN Q8HRS PRN IV NAUSEA/VOMITING; Start 10/13/17 at 17:30; Stop 10/13/17 at 17:37; Status DC Morphine Sulfate (Morphine Sulfate) 4 mg PRN Q2HR PRN IV PAIN Last administered on 10/14/17at 13:59; Start 10/13/17 at 17:30 Acetaminophen (Tylenol) 650 mg PRN Q4HRS PRN PO FEVER; Start 10/13/17 at 17:30; Stop 10/14/17 at 17:29; Status DC Albuterol/ Ipratropium (Duoneb) 3 ml RTQID NEB ; Start 10/13/17 at 20:00; Stop at 19:59; Status Cancel Ondansetron HCl (Zofran) 4 mg PRN Q6HRS PRN IV NAUSEA/VOMITING; Start 10/13/17 at 17:45 Ibuprofen (Motrin) 600 mg PRN Q6HRS PRN PO INFLAMMATION; Start 10/13/17 at 17:45 Guaifenesin (Robitussin Dm) 10 ml PRN Q6HRS PRN PO COUGH; Start 10/13/17 at 17: 45 Diphenhydramine HCl (Benadryl) 25 mg PRN QHS PRN PO INSOMNIA; Start 10/13/17 at 17:45 Labetalol HCl (Normodyne Iv Push) 20 mg PRN Q2HR PRN IVP HYPERTENSION, SEE COMMENTS; Start 10/13/17 at 17:45 Acetaminophen/ Hydrocodone Bitart (Lortab 5/325) 1 tab PRN Q4HRS PRN PO MODERATE PAIN Last administered on 10/15/17at 06:14; Start 10/13/17 at 17:45 Albuterol Sulfate (Ventolin Neb Soln) 2.5 mg PRN Q4HRS PRN NEB SHORTNESS OF BREATH Last administered on 10/14/17at 02:03; Start 10/13/17 at 17:45 Aspirin (Ecotrin) 81 mg DAILY PO Last administered on 10/15/17 08:43; Start 10/14/17 at 09:00 Atorvastatin Calcium (Lipitor) 10 mg HS PO Last administered on 10/14/17at 20:37 ; Start 10/13/17 at 21:00 Famotidine (Pepcid) 20 mg DAILY PO Last administered on 10/15/17at 08:43; Start 10/14/17 at 09:00 Furosemide (Lasix) 20 mg DAILY PO Last administered on 10/15/17at 08:43; Start at 09:00 Lactulose (Lactulose) 20 gm DAILY PO Last administered on 10/15/17at 08:38; Start 10/14/17 at 09:00 Lisinopril (Prinivil) 10 mg DAILY PO Last administered on 10/14/17at 08:13; Start 10/14/17 at 09:00 Non-Formulary Medication (Albuterol Sulfate (Proair Hfa Inhaler)) 2 puff Q4HRS PRN INH SHORTNESS OF BREATH; Start 10/13/17 at 17:45; Status UNV Guaifenesin/ Codeine Phosphate (Robitussin Ac) 5 ml Q6HRS PO Last administered on 10/15/17at 12:12; Start 10/13/17 at 18:15 Non-Formulary Medication (Tiotropium [place] (Spiriva)) 2 inh DAILY IH ; Start 10/14/17 at 09:00; Status UNV Nicotine (Nicoderm Cq 21mg) 1 patch PRN DAILY PRN TD SMOKING CESSATION; Start 10/13/17 at 17:45 Albuterol/ Ipratropium (Duoneb) 3 ml RTQID NEB Last administered on 10/15/17at 11 :17; Start 10/13/17 at 20:00 Albuterol Sulfate (Ventolin Neb Soln) 2.5 mg PRN Q4HRS PRN NEB SHORTNESS OF BREATH; Start 10/13/17 at 18:15; Status UNV Albuterol Sulfate (Ventolin Neb Soln) 10 mg 1X ONCE CONT NEB ; Start 10/13/17 at 18:15; Stop 10/13/17 at 18:25; Status DC Albuterol Sulfate (Ventolin Neb Soln) 5 mg 1X ONCE NEB ; Start 10/13/17 at 18:45 ; Stop 10/13/17 at 18:46; Status DC Active Scripts Active Guaifenesin-Codeine Syrup (Guaifenesin/Codeine Phosphate) 118 Ml Liquid 5 Ml PO Q6HRS Prednisone 50 Mg Tablet 1 Tab PO DAILY Proair Hfa Inhaler (Albuterol Sulfate) 8.5 Gm Hfa.aer.ad 2 Puff INH PRN Q6HRS PRN Furosemide 20 Mg Tablet 1 Tab PO DAILY Prednisone (Prednisone) 10 Mg Tablet 10 Mg PO DAILY Take 5 tablets daily for the next 5 days. After that, resume her normal dose of one tablet daily. Lactulose 20 Gm/30 Ml Solution 20 Gm PO DAILY Doxycycline Hyclate 100 Mg Tablet 100 Mg PO BID 10 Days Albuterol Sulfate Neb Soln (Albuterol Sulfate) 2.5 Mg/3 Ml Vial.neb 1 Vial NEB PRN Q4HRS Famotidine 20 Mg Tablet 20 Mg PO DAILY 30 Days Albuterol Sulfate Neb Soln (Albuterol Sulfate) 0.63 Mg/3 Ml Vial.neb 0.63 Mg NEB PRN Q4HRS PRN Proair Hfa Inhaler (Albuterol Sulfate) 8.5 Gm Hfa.aer.ad 2 Puff INH Q4HRS PRN Reported Azithromycin Tablet (Azithromycin) 250 Mg Tablet 250 Mg PO DAILY Lisinopril 10 Mg Tablet 1 Tab PO DAILY Prednisone 20 Mg Tablet 10 Mg PO DAILY Atorvastatin Calcium 10 Mg Tablet 10 Mg PO HS Furosemide 20 Mg Tablet 0.5 Tab PO DAILY Aspir 81 (Aspirin) 81 Mg Tablet.dr 1 Tab PO DAILY Foltx Tablet (B12/Levomefolate Calcium/B-6) 1 Each Tablet 1 Each PO Symbicort 160-4.5 Mcg Inhaler (Budesonide/Formoterol Fumarate) 10.2 Gm Hfa.aer.ad 2 Puff IH BID Spiriva (Tiotropium [place]) 18 Mcg Cap.w.dev 2 Inh IH DAILY Vitals/I & O Vital Sign - Last 24 Hours 10/14/17 10/14/17 10/14/17 10/14/17 13:59 15:00 16:24 19:00 Temp 97.9 97.7 97.9 97.7 Pulse 80 91 Resp 20 20 B/P (MAP) 138/89 (105) 125/75 (92) Pulse Ox 97 98 94 O2 Delivery Nasal Cannula Nasal Cannula Nasal Cannula Nasal Cannula O2 Flow Rate 2.5 4.0 3.0 10/14/17 10/14/17 10/14/17 10/15/17 19:55 20:00 23:05 03:05 Temp 97.8 97.7 97.8 97.7 Pulse 100 88 Resp 20 20 B/P (MAP) 142/82 (102) 117/82 (94) Pulse Ox 96 98 98 O2 Delivery Nasal Cannula Nasal Cannula Nasal Cannula Nasal Cannula O2 Flow Rate 2.0 2.0 10/15/17 10/15/17 10/15/173/18 06:14 06:59 07:00 07:14 Temp 97.5 97.5 Pulse 98 Resp 20 B/P (MAP) 108/66 (80) Pulse Ox 95 98 O2 Delivery Nasal Cannula Nasal Cannula Nasal Cannula Nasal Cannula O2 Flow Rate 2.0 1.0 4.0 1.0 10/15/17 10/15/17 10/15/17 10/15/17 08:00 08:42 11:00 11:18 Temp 97.9 97.9 Pulse 98 102 Resp 20 B/P (MAP) 108/66 105/70 (82) Pulse Ox 93 95 O2 Delivery Nasal Cannula Nasal Cannula Nasal Cannula O2 Flow Rate 3.0 2.0 2.0 Intake and Output 10/14/17 10/14/17 10/15/17 15:00 23:00 07:00 Intake Total 600 ml 1100 ml Output Total 600 ml 800 ml Balance 600 ml 500 ml -800 ml HERMELINDO RICHARDSON MD Oct 15, 2017 12:59
[2017-10-15] MEDS ORDERED: ENOXAPARIN 40 MG/0.4 ML SYRINGE. SQ SCH ×2 (13:30→21:00)
[2017-10-15] MEDS: predniSONE 20 MG TABLET PO SCH (14:41)
[2017-10-15 15:00] VITALS: BP 110/69
--- NOTE | 2017-10-15 17:52 | PDOC ---
PULMONARY PROGRESS NOTES Vitals Vital Signs Date Time Temp Pulse Resp B/P (MAP) Pulse Ox O2 Delivery O2 Flow Rate FiO2 10/15/17 16:04 98 Nasal Cannula 2.0 10/15/17 15:00 97.9 94 20 110/69 (83) 97.9 General: Alert Lungs: Other (bl decreased bs with mild wheezing) Cardiovascular: S1, S2 Abdomen: Soft, Non-tender Extremities: Other Labs Laboratory Tests Test 10/14/17 03:25 White Blood Count 12.9 x10^3/uL (4.0-11.0) Red Blood Count 4.43 x10^6/uL (4.30-5.70) Hemoglobin 13.9 g/dL (13.0-17.5) Hematocrit 40.2 % (39.0-53.0) Mean Corpuscular Volume 91 fL (79-100) Mean Corpuscular Hemoglobin 31 pg (25-35) Mean Corpuscular Hemoglobin Concent 35 g/dL (31-37) Red Cell Distribution Width 14.1 % (11.5-14.5) Platelet Count 140 x10^3/uL (140-400) Neutrophils (%) (Auto) 94 % (31-73) Lymphocytes (%) (Auto) 3 % (24-48) Monocytes (%) (Auto) 4 % (0-9) Eosinophils (%) (Auto) 0 % (0-3) Basophils (%) (Auto) 0 % (0-3) Neutrophils # (Auto) 12.1 x10^3uL (1.8-7.7) Lymphocytes # (Auto) 0.3 x10^3/uL (1.0-4.8) Monocytes # (Auto) 0.5 x10^3/uL (0.0-1.1) Eosinophils # (Auto) 0.0 x10^3/uL (0.0-0.7) Basophils # (Auto) 0.0 x10^3/uL (0.0-0.2) Sodium Level 135 mmol/L (136-145) Potassium Level 4.0 mmol/L (3.5-5.1) Chloride Level 98 mmol/L (98-107) Carbon Dioxide Level 31 mmol/L (21-32) Anion Gap 6 (6-14) Blood Urea Nitrogen 17 mg/dL (8-26) Creatinine 1.2 mg/dL (0.7-1.3) Estimated GFR (Cockcroft-Gault) 75.2 Glucose Level 168 mg/dL (70-99) Calcium Level 9.3 mg/dL (8.5-10.1) Medications Active Scripts Medications Dose Route/Sig Max Daily Dose Days Date Category Dose Instructions Guaifenesin-Codeine Syrup (Guaifenesin/Codeine Phosphate) 118 Ml Liquid 5 Ml PO Q6HRS 10/10/17 Rx Prednisone 50 Mg Tablet 1 Tab PO DAILY 10/10/17 Rx Proair Hfa Inhaler (Albuterol Sulfate) 8.5 Gm Hfa.aer.ad 2 Puff INH PRN Q6HRS PRN 09/10/17 Rx Furosemide 20 Mg Tablet 1 Tab PO DAILY 09/10/17 Rx Prednisone (Prednisone) 10 Mg Tablet 10 Mg PO DAILY 09/10/17 Rx Take 5 tablets daily for the next 5 days. After that, resume her normal dose of one tablet daily. Lactulose 20 Gm/30 Ml Solution 20 Gm PO DAILY 08/25/17 Rx Doxycycline Hyclate 100 Mg Tablet 100 Mg PO BID 10 08/24/17 Rx Azithromycin Tablet (Azithromycin) 250 Mg Tablet 250 Mg PO DAILY 08/21/17 Reported Lisinopril 10 Mg Tablet 1 Tab PO DAILY 08/21/17 Reported Prednisone 20 Mg Tablet 10 Mg PO DAILY 08/21/17 Reported Atorvastatin Calcium 10 Mg Tablet 10 Mg PO HS 08/21/17 Reported Albuterol Sulfate Neb Soln (Albuterol Sulfate) 2.5 Mg/3 Ml Vial.neb 1 Vial NEB PRN Q4HRS 07/10/17 Rx Famotidine 20 Mg Tablet 20 Mg PO DAILY 30 06/14/17 Rx Furosemide 20 Mg Tablet 0.5 Tab PO DAILY 06/09/17 Reported Aspir 81 (Aspirin) 81 Mg Tablet. 1 Tab PO DAILY 06/09/17 Reported Foltx Tablet (B12/Levomefolate Calcium/B-6) 1 Each Tablet 1 Each PO 06/09/17 Reported Albuterol Sulfate Neb Soln (Albuterol Sulfate) 0.63 Mg/3 Ml Vial.neb 0.63 Mg NEB PRN Q4HRS PRN 05/30/17 Rx Proair Hfa Inhaler (Albuterol Sulfate) 8.5 Gm Hfa.aer.ad 2 Puff INH Q4HRS PRN 02/09/16 Rx Symbicort 160-4.5 Mcg Inhaler (Budesonide/Formoterol Fumarate) 10.2 Gm Hfa.aer.ad 2 Puff IH BID 09/21/15 Reported Spiriva (Tiotropium [place]) 18 Mcg Cap.w.dev 2 Inh IH DAILY 09/21/15 Reported Impression . IMPRESSION: 1. Abuph-kd-vmbjfof respiratory failure. 2. Acute exacerbation of chronic obstructive pulmonary disease. 3. Acute nonspecific bronchitis. 4. Severe bullous emphysema seen on previous scan of the chest. SCOTT COOK MD Oct 15, 2017 17:52
[2017-10-15 19:49] VITALS: BP 95/72
[2017-10-15] MEDS: ATORVASTATIN CALCIUM 10 MG TABLET. PO SCH (20:43)
[2017-10-15 23:41] VITALS: BP 122/82
[2017-10-16 03:23] VITALS: BP 120/80
[2017-10-16] MEDS: HYDROcodone/APAP 5/325MG 1 TAB TABLET PO PRN ×2 (05:09→14:01)
[2017-10-16] MEDS: guaiFENesin/CODEINE 100mg/10mg 5 ML LIQUID PO SCH ×2 (05:09→13:55)
[2017-10-16 07:00] VITALS: BP 135/87
[2017-10-16 07:37] LABS: BASO % 0 % (0-3); EOS % 0 % (0-3); HEMATOCRIT 40.4 % (39.0-53.0); HEMOGLOBIN 14.1 g/dL (13.0-17.5); LYMPH # 0.3 x10^3/uL (1.0-4.8); LYMPH % 4 % (24-48); MEAN CORPUSCULAR HEMOGLOBIN 32 pg (25-35); MEAN CORPUSCULAR HGB CONC 35 g/dL (31-37); MEAN CORPUSCULAR VOLUME 90 fL (79-100); MONO # 0.6 x10^3/uL (0.0-1.1); MONO % 7 % (0-9); NEUT # 7.4 x10^3uL (1.8-7.7); NEUT % 89 % (31-73); PLATELET COUNT 127 x10^3/uL (140-400); RED BLOOD COUNT 4.46 x10^6/uL (4.30-5.70); RED CELL DISTRIBUTION WIDTH 13.9 % (11.5-14.5); WHITE BLOOD COUNT 8.3 x10^3/uL (4.0-11.0)
[2017-10-16] MEDS: IPRATRPIUM/ALBUTEROL 0.5/2.5MG 3 ML NEBU. NEB SCH ×3 (07:38→15:13)
[2017-10-16 08:03] LABS: CALCIUM 8.8 mg/dL (8.5-10.1); CREATININE 1.1 mg/dL (0.7-1.3); GFR 83.2; POTASSIUM 3.7 mmol/L (3.5-5.1)
[2017-10-16] MEDS: LISINOPRIL 10 MG TABLET PO SCH (09:00)
[2017-10-16] MEDS: ASPIRIN ENTERIC COATED 81 MG TABLET.DR. PO SCH (09:08)
[2017-10-16] MEDS: FAMOTIDINE 20 MG TABLET. PO SCH (09:08)
[2017-10-16] MEDS: LACTULOSE 20 GM/30 ML SOLUTION. PO SCH (09:08)
[2017-10-16] MEDS: predniSONE 20 MG TABLET PO SCH (09:08)
[2017-10-16] MEDS: FUROSEMIDE 20 MG TABLET PO SCH (09:09)
--- NOTE | 2017-10-16 09:51 | PDOC ---
PULMONARY PROGRESS NOTES Subjective feels better Vitals Vital Signs Date Time Temp Pulse Resp B/P (MAP) Pulse Ox O2 Delivery O2 Flow Rate FiO2 10/16/17 09:22 Nasal Cannula 2.0 10/16/17 07:43 98 10/16/17 07:00 97.7 70 16 135/87 (103) 97.7 General: Alert, No acute distress Lungs: Clear Cardiovascular: S1, S2 Abdomen: Soft, Non-tender Neuro Exam: Alert Extremities: Other Skin: Warm Labs Laboratory Tests Test 10/16/17 06:37 White Blood Count 8.3 x10^3/uL (4.0-11.0) Red Blood Count 4.46 x10^6/uL (4.30-5.70) Hemoglobin 14.1 g/dL (13.0-17.5) Hematocrit 40.4 % (39.0-53.0) Mean Corpuscular Volume 90 fL (79-100) Mean Corpuscular Hemoglobin 32 pg (25-35) Mean Corpuscular Hemoglobin Concent 35 g/dL (31-37) Red Cell Distribution Width 13.9 % (11.5-14.5) Platelet Count 127 x10^3/uL (140-400) Neutrophils (%) (Auto) 89 % (31-73) Lymphocytes (%) (Auto) 4 % (24-48) Monocytes (%) (Auto) 7 % (0-9) Eosinophils (%) (Auto) 0 % (0-3) Basophils (%) (Auto) 0 % (0-3) Neutrophils # (Auto) 7.4 x10^3uL (1.8-7.7) Lymphocytes # (Auto) 0.3 x10^3/uL (1.0-4.8) Monocytes # (Auto) 0.6 x10^3/uL (0.0-1.1) Eosinophils # (Auto) 0.0 x10^3/uL (0.0-0.7) Basophils # (Auto) 0.0 x10^3/uL (0.0-0.2) Sodium Level 138 mmol/L (136-145) Potassium Level 3.7 mmol/L (3.5-5.1) Chloride Level 98 mmol/L (98-107) Carbon Dioxide Level 36 mmol/L (21-32) Anion Gap 4 (6-14) Blood Urea Nitrogen 14 mg/dL (8-26) Creatinine 1.1 mg/dL (0.7-1.3) Estimated GFR (Cockcroft-Gault) 83.2 Glucose Level 99 mg/dL (70-99) Calcium Level 8.8 mg/dL (8.5-10.1) Laboratory Tests Test 10/16/17 06:37 White Blood Count 8.3 x10^3/uL (4.0-11.0) Red Blood Count 4.46 x10^6/uL (4.30-5.70) Hemoglobin 14.1 g/dL (13.0-17.5) Hematocrit 40.4 % (39.0-53.0) Mean Corpuscular Volume 90 fL (79-100) Mean Corpuscular Hemoglobin 32 pg (25-35) Mean Corpuscular Hemoglobin Concent 35 g/dL (31-37) Red Cell Distribution Width 13.9 % (11.5-14.5) Platelet Count 127 x10^3/uL (140-400) Neutrophils (%) (Auto) 89 % (31-73) Lymphocytes (%) (Auto) 4 % (24-48) Monocytes (%) (Auto) 7 % (0-9) Eosinophils (%) (Auto) 0 % (0-3) Basophils (%) (Auto) 0 % (0-3) Neutrophils # (Auto) 7.4 x10^3uL (1.8-7.7) Lymphocytes # (Auto) 0.3 x10^3/uL (1.0-4.8) Monocytes # (Auto) 0.6 x10^3/uL (0.0-1.1) Eosinophils # (Auto) 0.0 x10^3/uL (0.0-0.7) Basophils # (Auto) 0.0 x10^3/uL (0.0-0.2) Sodium Level 138 mmol/L (136-145) Potassium Level 3.7 mmol/L (3.5-5.1) Chloride Level 98 mmol/L (98-107) Carbon Dioxide Level 36 mmol/L (21-32) Anion Gap 4 (6-14) Blood Urea Nitrogen 14 mg/dL (8-26) Creatinine 1.1 mg/dL (0.7-1.3) Estimated GFR (Cockcroft-Gault) 83.2 Glucose Level 99 mg/dL (70-99) Calcium Level 8.8 mg/dL (8.5-10.1) Medications Active Scripts Medications Dose Route/Sig Max Daily Dose Days Date Category Dose Instructions Guaifenesin-Codeine Syrup (Guaifenesin/Codeine Phosphate) 118 Ml Liquid 5 Ml PO Q6HRS 10/10/17 Rx Prednisone 50 Mg Tablet 1 Tab PO DAILY 10/10/17 Rx Proair Hfa Inhaler (Albuterol Sulfate) 8.5 Gm Hfa.aer.ad 2 Puff INH PRN Q6HRS PRN 09/10/17 Rx Furosemide 20 Mg Tablet 1 Tab PO DAILY 09/10/17 Rx Prednisone (Prednisone) 10 Mg Tablet 10 Mg PO DAILY 09/10/17 Rx Take 5 tablets daily for the next 5 days. After that, resume her normal dose of one tablet daily. Lactulose 20 Gm/30 Ml Solution 20 Gm PO DAILY 08/25/17 Rx Doxycycline Hyclate 100 Mg Tablet 100 Mg PO BID 10 08/24/17 Rx Azithromycin Tablet (Azithromycin) 250 Mg Tablet 250 Mg PO DAILY 08/21/17 Reported Lisinopril 10 Mg Tablet 1 Tab PO DAILY 08/21/17 Reported Prednisone 20 Mg Tablet 10 Mg PO DAILY 08/21/17 Reported Atorvastatin Calcium 10 Mg Tablet 10 Mg PO HS 08/21/17 Reported Albuterol Sulfate Neb Soln (Albuterol Sulfate) 2.5 Mg/3 Ml Vial.neb 1 Vial NEB PRN Q4HRS 07/10/17 Rx Famotidine 20 Mg Tablet 20 Mg PO DAILY 30 06/14/17 Rx Furosemide 20 Mg Tablet 0.5 Tab PO DAILY 06/09/17 Reported Aspir 81 (Aspirin) 81 Mg Tablet. 1 Tab PO DAILY 06/09/17 Reported Foltx Tablet (B12/Levomefolate Calcium/B-6) 1 Each Tablet 1 Each PO 06/09/17 Reported Albuterol Sulfate Neb Soln (Albuterol Sulfate) 0.63 Mg/3 Ml Vial.neb 0.63 Mg NEB PRN Q4HRS PRN 05/30/17 Rx Proair Hfa Inhaler (Albuterol Sulfate) 8.5 Gm Hfa.aer.ad 2 Puff INH Q4HRS PRN 02/09/16 Rx Symbicort 160-4.5 Mcg Inhaler (Budesonide/Formoterol Fumarate) 10.2 Gm Hfa.aer.ad 2 Puff IH BID 09/21/15 Reported Spiriva (Tiotropium [place]) 18 Mcg Cap.w.dev 2 Inh IH DAILY 09/21/15 Reported Impression . 1. Klmca-bi-aigshzi respiratory failure. 2. Acute exacerbation of chronic obstructive pulmonary disease. improved 3. Acute nonspecific bronchitis. 4. Severe bullous emphysema seen on previous scan of the chest. Plan . clinically better continue Nebs home oxygen at 2-3 litres PO steroid taper ok with dc home today VIN MEAD MD Oct 16, 2017 09:51
[2017-10-16] MEDS ORDERED: DOXY100T PO (10:46)
[2017-10-16] MEDS ORDERED: PRED20TA PO (10:46)
[2017-10-16 11:00] VITALS: BP 142/86
--- NOTE | 2017-10-16 12:21 | PDOC3 ---
Discharge Summary [facility] Date of Admission: Oct 13, 2017 Discharge Date: Oct 16, 2017 Admitting Diagnosis Acute bronchitis, no pneumonia on chest x-ray COPD exacerbation, home O2 dependent as needed [id number] 2014 SIRS secondary to above, no sepsis Hypertension, controlled Final Diagnosis CONSULTS pulm Brief Hospital Course Mr. Nash is a 57 old M, copd, emphysema, on home o2 2L, COMES For cough, sob. better with steroid. dc with steroid taper and abx. dc time 35min. lortab 10 pills given for chronic OA back pain. General: Alert, Oriented X3, Cooperative, No acute distress Heart: Regular rate, Normal S1, Normal S2 Lungs: Other (bl decreased bs with mild wheezing) Abdomen: Normal bowel sounds, Soft, No tenderness Extremities: No clubbing, No cyanosis, No edema, Normal pulses, No tenderness/ swelling Skin: No rashes, No breakdown, No significant lesion Patient History: FH: HTN (hypertension) 33 FATHER 32 MOTHER Family history: Cardiovascular disease (situation) 33 FATHER Tumor 32 MOTHER Unknown Disposition home CONDITION AT DISCHARGE: Improved, Stable Scheduled Albuterol Sulfate (Albuterol Sulfate Neb Soln), 1 VIAL NEB PRN Q4HRS Aspirin (Aspir 81), 1 TAB PO DAILY, (Reported) Atorvastatin Calcium (Atorvastatin Calcium), 10 MG PO HS, (Reported) Budesonide/Formoterol Fumarate (Symbicort 160-4.5 Mcg Inhaler), 2 PUFF IH BID, ( Reported) Doxycycline Hyclate (Doxycycline Hyclate), 100 MG PO BID Famotidine (Famotidine), 20 MG PO DAILY Furosemide (Furosemide), 1 TAB PO DAILY Guaifenesin/Codeine Phosphate (Guaifenesin-Codeine Syrup), 5 ML PO Q6HRS Lactulose (Lactulose), 20 GM PO DAILY Prednisone (Prednisone), 40 MG PO DAILY Tiotropium [place] (Spiriva), 2 INH IH DAILY, (Reported) Miscellaneous Medications B12/Levomefolate Calcium/B-6 (Foltx Tablet), 1 EACH PO, (Reported) Discontinued Medications Albuterol Sulfate (Proair Hfa Inhaler), 2 PUFF INH Q4HRS PRN for SHORTNESS OF BREATH Albuterol Sulfate (Albuterol Sulfate Neb Soln), 0.63 MG NEB PRN Q4HRS PRN for FOR ASTHMA Albuterol Sulfate (Proair Hfa Inhaler), 2 PUFF INH PRN Q6HRS PRN for SHORTNESS OF BREATH Azithromycin (Azithromycin Tablet), 250 MG PO DAILY, (Reported) Furosemide (Furosemide), 0.5 TAB PO DAILY, (Reported) Lisinopril (Lisinopril), 1 TAB PO DAILY, (Reported) Prednisone (Prednisone), 10 MG PO DAILY, (Reported) Prednisone (Prednisone ), 10 MG PO DAILY Prednisone (Prednisone), 1 TAB PO DAILY HERMELINDO RICHARDSON MD Oct 16, 2017 12:21
== END 2017-10-16 15:34 | disposition home or self-care (01) | DRG 189 ==
LOC: ER 15:52 → 6 SOUTH 16:30
PROVIDERS: ADMIT Internal Medicine; ATTEND Internal Medicine
DX: J96.20 Acute and chronic respiratory failure, unspecified whether with hypoxia or hypercapnia (principal); J44.0 Chronic obstructive pulmonary disease with (acute) lower respiratory infection; R65.10 Systemic inflammatory response syndrome (SIRS) of non-infectious origin without acute organ dysfunction; J44.1 Chronic obstructive pulmonary disease with (acute) exacerbation; J20.9 Acute bronchitis, unspecified; J43.9 Emphysema, unspecified; Z87.891 Personal history of nicotine dependence; E78.5 Hyperlipidemia, unspecified; I11.0 Hypertensive heart disease with heart failure; I27.20 Pulmonary hypertension, unspecified; I50.9 Heart failure, unspecified; M47.9 Spondylosis, unspecified; Z79.52 Long term (current) use of systemic steroids; Z82.49 Family history of ischemic heart disease and other diseases of the circulatory system; Z99.81 Dependence on supplemental oxygen
CPT/HCPCS: 36415; 80048; 83880; 84484; 85007; 85025; 94618; 94640; 94644; 94760; 96374; J2270; J2930; J7512; J7613; J7620; 99285-25

== ENCOUNTER 2017-11-24 03:27 | Inpatient (IN) | payer MEDICAID ==
[~2017-11-24] VITALS: Ht 180.3 cm; Wt 89.0 kg
[~2017-11-24 03:27] MED LIST changes: +FLUT9.9S NS; +PANT20TA2 PO
[2017-11-24 04:00] LABS: BASO % 0 % (0-3); EOS % 0 % (0-3); HEMATOCRIT 39.6 % (39.0-53.0); HEMOGLOBIN 13.5 g/dL (13.0-17.5); LYMPH # 0.3 x10^3/uL (1.0-4.8); LYMPH % 4 % (24-48); MEAN CORPUSCULAR HEMOGLOBIN 31 pg (25-35); MEAN CORPUSCULAR HGB CONC 34 g/dL (31-37); MEAN CORPUSCULAR VOLUME 91 fL (79-100); MONO # 0.1 x10^3/uL (0.0-1.1); MONO % 1 % (0-9); NEUT # 7.3 x10^3uL (1.8-7.7); NEUT % 95 % (31-73); PLATELET COUNT 134 x10^3/uL (140-400); RED BLOOD COUNT 4.36 x10^6/uL (4.30-5.70); RED CELL DISTRIBUTION WIDTH 14.8 % (11.5-14.5); WHITE BLOOD COUNT 7.8 x10^3/uL (4.0-11.0)
[2017-11-24 04:14] LABS: CALCIUM 8.7 mg/dL (8.5-10.1); CREATININE 1.3 mg/dL (0.7-1.3); GFR 68.6; POTASSIUM 4.4 mmol/L (3.5-5.1)
[2017-11-24 04:17] LABS: ALBUMIN 3.4 g/dL (3.4-5.0); ALBUMIN/GLOBULIN RATIO 1.1 (1.0-1.7); TOTAL BILIRUBIN 0.8 mg/dL (0.2-1.0); TOTAL PROTEIN 6.4 g/dL (6.4-8.2)
--- NOTE | 2017-11-24 05:13 | PHYS DOC ---
Past Medical History Past Medical History: Bronchitis, CHF, COPD, Lung Disease Additional Past Medical Histor: EMPHYSEMA-on 3 L NC Past Surgical History: Other Additional Past Surgical Histo: INGUINAL HERNIA REPAIR X2 Alcohol Use: None Drug Use: None Adult General Chief Complaint Chief Complaint: SHORTNESS OF BREATH HPI HPI Patient is a 57 year old male who presents with COPD exacerbation. Patient had just been seen earlier this evening at [place] for COPD exacerbation and was driving back home to get an extra tanked. Apparently he was having increased difficulty breathing and the drive away driver was concerned enough to bring him to the closest facility which was here. Patient arrived on his O2 with a saturation of 84% in triage. Patient was most recently admitted November 18 with the following discharge diagnosis and hospital course [From his Pulmonary Consult by Dr. Villavicencio on 2017: This is a 57-year-old male who is referred for evaluation of respiratory status. He smoked tobacco between the ages of 20 and 56. When smoking, he typically smoked approximately three-quarters of a pack of cigarettes per day. He has been on oxygen chronically and has had multiple hospital admissions for COPD exacerbation. Of note, the patient states that he is to be evaluated tomorrow in [place] at [facility] for lung transplantation. He is anxious to minimize his stay here. As noted above, the patient is on chronic oxygen therapy. He takes Spiriva, Symbicort and p.r.n. albuterol. He typically is followed at [facility]. He notes that for the past several days, he has had more difficulty breathing. He noticed a yellow sputum without fever. He came in to the [facility] last night. He was given systemic steroids, antibiotics and bronchodilators along with oxygen. He believes that he is feeling somewhat better. PAST MEDICAL HISTORY: Positive for congestive heart failure and heart attack per his history in [address] [facility]. Patient states that after being discharged on Sunday from [facility] he did follow up at [facility] following day on Sunday of this week and had pulmonary function testing for evaluation of a lung transplant. Sadly he states that he was told that he was not a candidate for a lung transplant that he would likely on the table. Review of Systems Review of Systems Constitutional: Denies fever or chills [] Eyes: Denies change in visual acuity, redness, or eye pain [] HENT: Denies nasal congestion or sore throat [] Respiratory: Denies cough, positive for shortness of breath [] Cardiovascular: No additional information not addressed in HPI [] GI: Denies abdominal pain, nausea, vomiting, bloody stools or diarrhea [] : Denies dysuria or hematuria [] Musculoskeletal: Denies back pain or joint pain [] Integument: Denies rash or skin lesions [] Neurologic: Denies headache, focal weakness or sensory changes [] Endocrine: Denies polyuria or polydipsia [] All other systems were reviewed and found to be within normal limits, except as documented in this note. Allergies Allergies Allergies Coded Allergies Type Severity Reaction Last Updated Verified No Known Drug Allergies 10/13/17 No Physical Exam Physical Exam Constitutional: Well developed, well nourished, no acute distress, non-toxic appearance. [] HENT: Normocephalic, atraumatic, bilateral external ears normal, oropharynx moist, no oral exudates, nose normal. [] Eyes: PERRLA, EOMI, conjunctiva normal, no discharge. [] Neck: Normal range of motion, no tenderness, supple, no stridor. [] Cardiovascular:Heart rate regular rhythm, no murmur [] Lungs & Thorax: Bilateral breath sounds with inspiratory and expiratory wheezes [] Abdomen: Bowel sounds normal, soft, no tenderness, no masses, no pulsatile masses. [] Skin: Warm, dry, no erythema, no rash. [] Back: No tenderness, no CVA tenderness. [] Extremities: No tenderness, no cyanosis, no clubbing, ROM intact, no edema. [] Neurologic: Alert and oriented X 3, normal motor function, normal sensory function, no focal deficits noted. [] Psychologic: Affect normal, judgement normal, mood normal. [] Current Patient Data Vital Signs Vital Signs Date Time Temp Pulse Resp B/P (MAP) Pulse Ox O2 Delivery O2 Flow Rate FiO2 11/24/17 04:27 96 22 123/81 (95) 97 Nasal Cannula 4.0 11/24/17 03:30 98.5 98.5 Lab Values Laboratory Tests Test 11/24/17 03:40 White Blood Count 7.8 x10^3/uL (4.0-11.0) Red Blood Count 4.36 x10^6/uL (4.30-5.70) Hemoglobin 13.5 g/dL (13.0-17.5) Hematocrit 39.6 % (39.0-53.0) Mean Corpuscular Volume 91 fL (79-100) Mean Corpuscular Hemoglobin 31 pg (25-35) Mean Corpuscular Hemoglobin Concent 34 g/dL (31-37) Red Cell Distribution Width 14.8 % (11.5-14.5) H Platelet Count 134 x10^3/uL (140-400) L Neutrophils (%) (Auto) 95 % (31-73) H Lymphocytes (%) (Auto) 4 % (24-48) L Monocytes (%) (Auto) 1 % (0-9) Eosinophils (%) (Auto) 0 % (0-3) Basophils (%) (Auto) 0 % (0-3) Neutrophils # (Auto) 7.3 x10^3uL (1.8-7.7) Lymphocytes # (Auto) 0.3 x10^3/uL (1.0-4.8) L Monocytes # (Auto) 0.1 x10^3/uL (0.0-1.1) Eosinophils # (Auto) 0.0 x10^3/uL (0.0-0.7) Basophils # (Auto) 0.0 x10^3/uL (0.0-0.2) Platelet Estimate Pending Sodium Level 138 mmol/L (136-145) Potassium Level 4.4 mmol/L (3.5-5.1) Chloride Level 101 mmol/L (98-107) Carbon Dioxide Level 25 mmol/L (21-32) Anion Gap 12 (6-14) Blood Urea Nitrogen 15 mg/dL (8-26) Creatinine 1.3 mg/dL (0.7-1.3) Estimated GFR (Cockcroft-Gault) 68.6 BUN/Creatinine Ratio 12 (6-20) Glucose Level 243 mg/dL (70-99) H Calcium Level 8.7 mg/dL (8.5-10.1) Total Bilirubin 0.8 mg/dL (0.2-1.0) Aspartate Amino Transferase (AST) 27 U/L (15-37) Alanine Aminotransferase (ALT) 35 U/L (16-63) Alkaline Phosphatase 78 U/L (46-116) Troponin I Quantitative < 0.017 ng/mL (0.000-0.055) Total Protein 6.4 g/dL (6.4-8.2) Albumin 3.4 g/dL (3.4-5.0) Albumin/Globulin Ratio 1.1 (1.0-1.7) Laboratory Tests 11/24/17 03:40 Laboratory Tests 11/24/17 03:40 EKG EKG Sinus tachycardia at a rate of 105[] Radiology/Procedures Radiology/Procedures Portable chest x-ray apical bulla emphysema with no acute change from previous chest x-ray on November 18, 2017[] Course & Med Decision Making Course & Med Decision Making Pertinent Labs and Imaging studies reviewed. (See chart for details) [] Dragon Disclaimer Dragon Disclaimer This electronic medical record was generated, in whole or in part, using a voice recognition dictation system. Departure Departure Impression: Primary Impression: COPD with exacerbation Disposition: ADMITTED INPATIENT Admitting Physician: Xie. Fields Condition: STABLE Referrals: UNKNOWN PCP NAME (PCP) PILAR SORTO MD Nov 24, 2017 05:13
[2017-11-24] MEDS ORDERED: ONDANSETRON PF 4 MG/2 ML VIAL. IV PRN (05:45)
[2017-11-24] MEDS ORDERED: MORPHINE SULFATE 2 MG/ML VIAL. IV PRN (05:45)
[2017-11-24 05:51] LABS: BILIRUBIN,URINE NEGATIVE (NEG); CLARITY,URINE CLEAR; COLOR,URINE YELLOW; NITRITE,URINE NEGATIVE (NEG); PROTEIN,URINE NEGATIVE (NEG-TRACE)
[2017-11-24] MEDS ORDERED: IPRATRPIUM/ALBUTEROL 0.5/2.5MG 3 ML NEBU. NEB ONE (06:00)
--- NOTE | 2017-11-24 06:06 | RAD ---
Chest AP portable at 0416: Reason for examination: Short of breath with cough. Comparison is made to previous studies dated 11/18/2017 and 10/10/2017. The heart size is normal. Mediastinum is unremarkable. Lung lira are hyperaerated. There continues to be lucency in the left upper lobe consistent with bullous emphysema. There are chronic interstitial type changes at the lung bases bilaterally which probably reflects some interstitial fibrosis. No acute infiltrates or pleural effusions are evident. No acute bony abnormalities are seen. Impression: Bullous emphysematous changes in the left upper lobe. Changes consistent with interstitial fibrosis of the lung bases. No acute infiltrates or pleural effusions evident. Electronically signed by: Renée Mcknight MD (11/24/2017 6:03 AM) [facility]
[2017-11-24 06:08] LABS: BACTERIA,URINE 0 /HPF (0-FEW); RBC,URINE 0 /HPF (0-2); SQUAMOUS EPITHELIAL CELL,UR FEW /LPF; WBC,URINE 0 /HPF (0-4)
[2017-11-24 07:00] VITALS: BP_SYST 123; BP_SYST 125; BP_DIAS 83; BP_DIAS 88
--- NOTE | 2017-11-24 07:16 | EKG ---
[facility] [address] [place] [address] Test Date: 2017-11-24 Test Time: 04:10:14 Pat Name: KAYLA JONES Department: Room: 584 1 Gender: M [employer] K[employer] Tender: : 1960 Requested By: PILAR SORTO Order Number: [id number] Reading MD: Luis Manuel Thornton MD Measurements Intervals [place] Rate: 105 P: 57 IN: 150 QRS: 57 QRSD: 86 T: 64 QT: 346 QTc: 461 Interpretive Statements SINUS TACHYCARDIA VENTRICULAR PREMATURE COMPLEX(ES) PAC'S Electronically Signed On 11-26-2017 9:00:48 CDT by Luis Manuel Thornton MD
--- NOTE | 2017-11-24 09:51 | PDOC ---
Provider Note Provider Note [id number] a/c resp fail ae of copd acute bronchitis vs pneumonia see orders TAMAR RING MD Nov 24, 2017 09:51
[2017-11-24 10:28] LABS: % BANDS 2 % (0-9); % LYMPHS 4 % (24-48); % MONOS 1 % (0-10); % SEGS 93 % (35-66); ANISOCYTOSIS SLIGHT; POIKILOCYTOSIS SLIGHT
[2017-11-24 10:29] LABS: PLT ESTIMATE ADEQUATE (ADEQUATE)
[2017-11-24] MEDS ORDERED: IOHEXOL 300 MG/ML 100ML VIAL. IV ONE (10:30)
[2017-11-24] MEDS ORDERED: CONTRAST GIVEN. MC PRN (10:30)
[2017-11-24 11:00] VITALS: BP 138/89
[2017-11-24] MEDS ORDERED: VANCOMYCIN 2 GM in IV NORMAL SALINE 500ML BAG 500 ML IV ONE (11:00)
[2017-11-24] MEDS: IPRATRPIUM/ALBUTEROL 0.5/2.5MG 3 ML NEBU. NEB SCH ×3 (11:37→18:19)
[2017-11-24] MEDS: BUDESONIDE 0.5 MG/2 ML NEBU. NEB SCH ×2 (11:37→18:19)
--- NOTE | 2017-11-24 12:06 | CONS ---
DATE OF CONSULTATION: 11/24/2017 REASON FOR CONSULTATION: I was asked to see this 57-year-old gentleman for jujmx-ba-uppoetw respiratory failure, acute exacerbation of COPD. HISTORY OF PRESENT ILLNESS: He does have history of 30-40 pack year smoking, quit smoking in 2017. He is on oxygen 2 liters per minute via nasal cannula continuously. He has been on transplant list. He was seen in [facility] this week, and transplant physician stated that transplant is very risky. He will talk to their surgeons regarding lung volume resection. He has had increased shortness of breath for the past 2 days, has had increased cough with thick sputum production and wheezing. He went to [facility] last night and was discharged, but he got worse, was brought to Emergency Room. He does have runny nose, but denies gastroesophageal reflux symptoms. PAST MEDICAL HISTORY: Chronic respiratory failure, COPD, CHF. ALLERGIES: No known drug allergies. MEDICATIONS: Bronchodilator. SOCIAL HISTORY: History of 30-40 pack year smoking, stopped smoking in 2017. FAMILY HISTORY: Hypertension. REVIEW OF SYSTEMS: As mentioned as above, other systems otherwise negative. PHYSICAL EXAMINATION: GENERAL: An overweight gentleman. VITAL SIGNS: O2 saturation on 4 liters of oxygen is 94%, respiratory rate 20, heart rate 86, blood pressure 125/81, temperature 98.5. HEENT: Normocephalic, atraumatic. Pupils equal, round, reactive to light. There is shallow oropharynx. Nose is clear. NECK: There is no JVD, lymphadenopathy or thyromegaly. CARDIOVASCULAR: Regular rate and rhythm. Distant heart sounds. CHEST: Inspection is normal. LUNGS: There are bibasilar crackles and expiratory wheezing. ABDOMEN: Soft and obese. Bowel sounds are good. There is no mass. EXTREMITIES: There is no edema. LYMPHATICS: There is no lymphadenopathy. SKIN: Chronic changes. NEUROLOGIC: Alert and oriented. LABORATORY DATA: I reviewed the following lab data: Chest x-ray shows bilateral hyperinflation ?right lower lobe infiltrate, bullous emphysematous changes in left upper lobe Sodium 138, potassium 4.4, chloride 101, CO2 of 25, glucose 243, BUN 15, creatinine 1.3. WBC 7.8, hemoglobin 13.5, platelet 134. IMPRESSION: 1. Acute on chronic respiratory failure with hypoxemia secondary to acute exacerbation of chronic obstructive pulmonary disease, acute bronchitis versus pneumonia,?pulmonary embolism, ?congestive heart failure versus others. 2. Abnormal chest x-ray. 3. Acute exacerbation of chronic obstructive pulmonary disease. 4. Acute bronchitis versus pneumonia. 5. Ex-smoker. 6. Obesity ?obstructive sleep apnea-hypopnea syndrome. 7. History of congestive heart failure. PLAN AND RECOMMENDATIONS: 1. Titrate FiO2 to keep O2 saturation 92%. 2. I will check nasal swab for influenza A and B and legionella and Strep pneumoniae antigen. 3. Start Zosyn and vancomycin. The patient has had multiple courses of antibiotic and still is on doxycycline. 4. Start Solu-Medrol 40 mg IV every 12. 5. CT angiogram of the chest. 6. Lovenox for DVT prophylaxis. 7. Protonix for stress ulcer prophylaxis. 8. I do recommend a sleep study as an outpatient. 9. Bronchodilator. 10. Inhaled corticosteroid. 11. Continue not smoking. Thank you very much for allowing me to participate in care of this very nice gentleman. The findings and recommendations were discussed with the patient. He understood and agreed to proceed with the plan. I have answered all of his questions. TAMAR RING M.D. DR: JOLENE/efrain JOB#: [id number] / [id number]
--- NOTE | 2017-11-24 12:20 | HP ---
ADMIT DATE: 11/24/2017 CHIEF COMPLAINT: Shortness of breath. HISTORY OF PRESENT ILLNESS: The patient is a pleasant 57-year-old male who has known COPD. He presents with shortness of breath. He was apparently seen at [facility] earlier last night, sent back home. Rates his symptoms at 9/10. He has associated anxiety. I discussed the case with the ER physician. It appears the patient is hypoxic with a sat of 84. We are going to admit the patient with COPD exacerbation with consultation of Pulmonary. PAST MEDICAL HISTORY: COPD, CHF, bronchitis, inguinal hernia repair x 2. ALLERGIES: None. FAMILY HISTORY: COPD. SOCIAL HISTORY: He smokes. No drinking or drugs. MEDICATIONS: Reviewed, please refer to the MRAD. REVIEW OF SYSTEMS: GENERAL: No history of weight change, weakness or fevers. SKIN: No bruising, hair changes or rashes. EYES: No blurred, double or loss of vision. NOSE AND THROAT: No history of nosebleeds, hoarseness or sore throat. HEART: No history of palpitations, chest pain or shortness of breath on exertion. LUNGS: He complains of shortness of breath. GASTROINTESTINAL: Denies changes in appetite, nausea, vomiting, diarrhea or constipation. GENITOURINARY: No history of frequency, urgency, hesitancy or nocturia. NEUROLOGIC: Denies history of numbness, tingling, tremor or weakness. PSYCHIATRIC: No history of panic, anxiety or depression. ENDOCRINE: No history of heat or cold intolerance, polyuria or polydipsia. EXTREMITIES: Denies muscle weakness, joint pain, pain on walking or stiffness. PHYSICAL EXAMINATION: VITAL SIGNS: Temperature afebrile, pulse 80, respirations 18, blood pressure 105/60. His O2 sat is 94% on 4 liters. GENERAL: He is sleeping. He awakens. HEART: Normal S1, S2. LUNGS: Coarse with wheezing. ABDOMEN: Soft. EXTREMITIES: No edema. SKIN: No rash. ENDOCRINE: No thyromegaly. LYMPHATICS: No cervical nodes. HEMATOPOIETIC: No bruising. LABORATORY DATA: White count 7.8. Electrolytes are normal. ASSESSMENT AND PLAN: Respiratory failure and chronic obstructive pulmonary disease exacerbation. We will treat with IV steroids, breathing treatments, oxygen and consult Dr. Lynch. PT, OT, home meds, frequent labs. NIAL Hemanth MARKS DO DR: Jermaine JOB#: [id number] / [id number]
--- NOTE | 2017-11-24 14:11 | RAD ---
PQRS Compliance Statement: One or more of the following individualized dose reduction techniques were utilized for this examination: 1. Automated exposure control 2. Adjustment of the mA and/or kV according to patient size 3. Use of iterative reconstruction technique CT CHEST WITH CONTRAST, PULMONARY ANGIOGRAM History: SHORTNESS OF BREATH. Comparison: CT chest without contrast, August 21, 2017. Technique: Helical CT of the chest was performed after the administration of 75 cc Omnipaque 300 intravenous contrast according to PE protocol. Axial and coronal reconstructions were obtained. 3-D MIP images were constructed to better evaluate the pulmonary arteries. Findings: Pulmonary arteries are adequately opacified. There is no evidence of pulmonary embolism. No thoracic aortic dissection. There is no mediastinal adenopathy. Mildly enlarged right hilar lymph node. There is coronary artery disease. Cardiac size normal, no pericardial effusion. No pleural effusion. Respiratory motion artifact. The central airways are patent. There is centrilobular emphysema. There is severe bullous disease in the left lung. There is patchy consolidation in the posterior and lateral right lower lobe. There is peribronchial thickening in the right middle and bilateral lower lobes. Respiratory motion artifact limits evaluation of the upper abdomen. Small probable left renal cyst. No compression fracture in the thoracic spine. IMPRESSION: 1. There is no CT evidence of pulmonary embolus. 2. There is bilateral lower and right middle lobe bronchitis. Patchy consolidations in the lateral and posterior right lower lobe may be atelectasis or pneumonia. 3. Severe bullous emphysema in the left lung. Electronically signed by: Teofilo Mueller MD (11/24/2017 2:08 PM) [facility]
[2017-11-24 15:13] VITALS: BP 126/79
[2017-11-24] MEDS: methylPREDNISolone SOD SUCC PF 40 MG/ML VIAL. IV SCH ×2 (15:32→20:46)
[2017-11-24] MEDS: ENOXAPARIN 40 MG/0.4 ML SYRINGE. SQ SCH (15:32)
[2017-11-24] MEDS: PANTOPRAZOLE 40 MG TABLET.DR. PO SCH (15:32)
[2017-11-24] MEDS: VANCOMYCIN PER PHARMACY MC PRN (16:01)
[2017-11-24] MEDS: PIPERACILLIN/TAZOBACTAM 3.375 GM in IV NORMAL SALINE 50ML 50 ML IV SCH ×2 (18:00→18:12)
[2017-11-24 18:03] LABS: INFLUENZA A PATIENT NEGATIVE (NEGATIVE); INFLUENZA B PATIENT NEGATIVE (NEGATIVE)
[2017-11-24 19:00] VITALS: BP 100/67
[2017-11-24] MEDS ORDERED: ERYT250C8 PO (20:12)
[2017-11-24 22:49] VITALS: BP 100/57
[2017-11-25] MEDS: PIPERACILLIN/TAZOBACTAM 3.375 GM in IV NORMAL SALINE 50ML 50 ML IV SCH ×4 (00:03→18:14)
[2017-11-25] MEDS: ALBUTEROL SULFATE 2.5 MG/3 ML NEBU. NEB PRN (00:30)
[2017-11-25] MEDS: FLUTICASONE 50MCG/NASAL SPRAY 16GM BOTTLE. NS PRN (01:15)
[2017-11-25] MEDS ORDERED: FUROSEMIDE 20 MG TABLET PO ONE (01:30)
[2017-11-25 03:00] VITALS: BP 117/81
[2017-11-25] MEDS: VANCOMYCIN 1.25 GM in IV NORMAL SALINE 250ML 250 ML IV SCH ×2 (04:10→16:40)
[2017-11-25 06:36] LABS: BASO % 0 % (0-3); EOS % 0 % (0-3); HEMATOCRIT 37.7 % (39.0-53.0); LYMPH # 0.3 x10^3/uL (1.0-4.8); LYMPH % 5 % (24-48); MEAN CORPUSCULAR HEMOGLOBIN 31 pg (25-35); MEAN CORPUSCULAR HGB CONC 35 g/dL (31-37); MEAN CORPUSCULAR VOLUME 90 fL (79-100); MONO # 0.2 x10^3/uL (0.0-1.1); MONO % 3 % (0-9); NEUT # 6.3 x10^3uL (1.8-7.7); NEUT % 93 % (31-73); PLATELET COUNT 124 x10^3/uL (140-400); RED BLOOD COUNT 4.19 x10^6/uL (4.30-5.70); RED CELL DISTRIBUTION WIDTH 14.6 % (11.5-14.5); WHITE BLOOD COUNT 6.8 x10^3/uL (4.0-11.0)
[2017-11-25 07:07] LABS: ALBUMIN 3.2 g/dL (3.4-5.0); ALBUMIN/GLOBULIN RATIO 0.9 (1.0-1.7); CALCIUM 9.3 mg/dL (8.5-10.1); CREATININE 1.1 mg/dL (0.7-1.3); GFR 83.2; POTASSIUM 4.6 mmol/L (3.5-5.1); TOTAL BILIRUBIN 0.9 mg/dL (0.2-1.0); TOTAL PROTEIN 6.7 g/dL (6.4-8.2)
[2017-11-25] MEDS ORDERED: MORPHINE SULFATE 2 MG/ML VIAL. IV PRN (07:30)
[2017-11-25 07:45] VITALS: BP 125/82
[2017-11-25] MEDS: BUDESONIDE 0.5 MG/2 ML NEBU. NEB SCH ×2 (07:51→20:05)
[2017-11-25] MEDS: IPRATRPIUM/ALBUTEROL 0.5/2.5MG 3 ML NEBU. NEB SCH ×4 (07:51→20:05)
[2017-11-25] MEDS: PANTOPRAZOLE 40 MG TABLET.DR. PO SCH (08:10)
[2017-11-25] MEDS: HYDROcodone/APAP 5/325MG 1 TAB TABLET PO PRN ×2 (08:10→16:39)
[2017-11-25] MEDS: methylPREDNISolone SOD SUCC PF 40 MG/ML VIAL. IV SCH ×2 (08:11→20:15)
--- NOTE | 2017-11-25 08:40 | PDOC ---
PULMONARY PROGRESS NOTES Subjective sob slightly better, has cough, no pain Vitals Vital Signs Date Time Temp Pulse Resp B/P (MAP) Pulse Ox O2 Delivery O2 Flow Rate FiO2 11/25/17 08:10 95 Nasal Cannula 2.0 11/25/17 03:00 97.9 107 19 117/81 (93) 97.9 ROS: No Nausea General: Alert, No acute distress Lungs: Wheezing Cardiovascular: S1, S2 Abdomen: Soft, Non-tender Neuro Exam: Alert Extremities: No Edema, Other Skin: Warm Labs Laboratory Tests Test 11/24/17 03:40 11/24/17 05:22 11/24/17 16:00 11/25/17 06:05 White Blood Count 7.8 x10^3/uL (4.0-11.0) 6.8 x10^3/uL (4.0-11.0) Red Blood Count 4.36 x10^6/uL (4.30-5.70) 4.19 x10^6/uL (4.30-5.70) Hemoglobin 13.5 g/dL (13.0-17.5) 13.0 g/dL (13.0-17.5) Hematocrit 39.6 % (39.0-53.0) 37.7 % (39.0-53.0) Mean Corpuscular Volume 91 fL (79-100) 90 fL (79-100) Mean Corpuscular Hemoglobin 31 pg (25-35) 31 pg (25-35) Mean Corpuscular Hemoglobin Concent 34 g/dL (31-37) 35 g/dL (31-37) Red Cell Distribution Width 14.8 % (11.5-14.5) 14.6 % (11.5-14.5) Platelet Count 134 x10^3/uL (140-400) 124 x10^3/uL (140-400) Neutrophils (%) (Auto) 95 % (31-73) 93 % (31-73) Lymphocytes (%) (Auto) 4 % (24-48) 5 % (24-48) Monocytes (%) (Auto) 1 % (0-9) 3 % (0-9) Eosinophils (%) (Auto) 0 % (0-3) 0 % (0-3) Basophils (%) (Auto) 0 % (0-3) 0 % (0-3) Neutrophils # (Auto) 7.3 x10^3uL (1.8-7.7) 6.3 x10^3uL (1.8-7.7) Lymphocytes # (Auto) 0.3 x10^3/uL (1.0-4.8) 0.3 x10^3/uL (1.0-4.8) Monocytes # (Auto) 0.1 x10^3/uL (0.0-1.1) 0.2 x10^3/uL (0.0-1.1) Eosinophils # (Auto) 0.0 x10^3/uL (0.0-0.7) 0.0 x10^3/uL (0.0-0.7) Basophils # (Auto) 0.0 x10^3/uL (0.0-0.2) 0.0 x10^3/uL (0.0-0.2) Segmented Neutrophils % 93 % (35-66) Band Neutrophils % 2 % (0-9) Lymphocytes % 4 % (24-48) Monocytes % 1 % (0-10) Platelet Estimate Adequate (ADEQUATE) Poikilocytosis Slight Anisocytosis Slight Sodium Level 138 mmol/L (136-145) 137 mmol/L (136-145) Potassium Level 4.4 mmol/L (3.5-5.1) 4.6 mmol/L (3.5-5.1) Chloride Level 101 mmol/L (98-107) 101 mmol/L (98-107) Carbon Dioxide Level 25 mmol/L (21-32) 30 mmol/L (21-32) Anion Gap 12 (6-14) 6 (6-14) Blood Urea Nitrogen 15 mg/dL (8-26) 13 mg/dL (8-26) Creatinine 1.3 mg/dL (0.7-1.3) 1.1 mg/dL (0.7-1.3) Estimated GFR (Cockcroft-Gault) 68.6 83.2 BUN/Creatinine Ratio 12 (6-20) 12 (6-20) Glucose Level 243 mg/dL (70-99) 146 mg/dL (70-99) Calcium Level 8.7 mg/dL (8.5-10.1) 9.3 mg/dL (8.5-10.1) Total Bilirubin 0.8 mg/dL (0.2-1.0) 0.9 mg/dL (0.2-1.0) Aspartate Amino Transf (AST/SGOT) 27 U/L (15-37) 19 U/L (15-37) Alanine Aminotransferase (ALT/SGPT) 35 U/L (16-63) 34 U/L (16-63) Alkaline Phosphatase 78 U/L (46-116) 66 U/L (46-116) Troponin I Quantitative < 0.017 ng/mL (0.000-0.055) Total Protein 6.4 g/dL (6.4-8.2) 6.7 g/dL (6.4-8.2) Albumin 3.4 g/dL (3.4-5.0) 3.2 g/dL (3.4-5.0) Albumin/Globulin Ratio 1.1 (1.0-1.7) 0.9 (1.0-1.7) Urine Collection Type Void Urine Color Yellow Urine Clarity Clear Urine pH 7.0 Urine Specific [place] >=1.030 Urine Protein Negative mg/dL (NEG-TRACE) Urine Glucose (UA) 100 mg/dL (NEG) Urine Ketones (Stick) Negative mg/dL (NEG) Urine Blood Negative (NEG) Urine Nitrite Negative (NEG) Urine Bilirubin Negative (NEG) Urine Urobilinogen Dipstick 2.0 mg/dL (0.2 mg/dL) Urine Leukocyte Esterase Negative (NEG) Urine RBC 0 /HPF (0-2) Urine WBC 0 /HPF (0-4) Urine Squamous Epithelial Cells Few /LPF Urine Bacteria 0 /HPF (0-FEW) Influenza Type A Antigen Negative (NEGATIVE) Influenza Type B Antigen Negative (NEGATIVE) Laboratory Tests Test 11/24/17 16:00 11/25/17 06:05 Influenza Type A Antigen Negative (NEGATIVE) Influenza Type B Antigen Negative (NEGATIVE) White Blood Count 6.8 x10^3/uL (4.0-11.0) Red Blood Count 4.19 x10^6/uL (4.30-5.70) Hemoglobin 13.0 g/dL (13.0-17.5) Hematocrit 37.7 % (39.0-53.0) Mean Corpuscular Volume 90 fL (79-100) Mean Corpuscular Hemoglobin 31 pg (25-35) Mean Corpuscular Hemoglobin Concent 35 g/dL (31-37) Red Cell Distribution Width 14.6 % (11.5-14.5) Platelet Count 124 x10^3/uL (140-400) Neutrophils (%) (Auto) 93 % (31-73) Lymphocytes (%) (Auto) 5 % (24-48) Monocytes (%) (Auto) 3 % (0-9) Eosinophils (%) (Auto) 0 % (0-3) Basophils (%) (Auto) 0 % (0-3) Neutrophils # (Auto) 6.3 x10^3uL (1.8-7.7) Lymphocytes # (Auto) 0.3 x10^3/uL (1.0-4.8) Monocytes # (Auto) 0.2 x10^3/uL (0.0-1.1) Eosinophils # (Auto) 0.0 x10^3/uL (0.0-0.7) Basophils # (Auto) 0.0 x10^3/uL (0.0-0.2) Sodium Level 137 mmol/L (136-145) Potassium Level 4.6 mmol/L (3.5-5.1) Chloride Level 101 mmol/L (98-107) Carbon Dioxide Level 30 mmol/L (21-32) Anion Gap 6 (6-14) Blood Urea Nitrogen 13 mg/dL (8-26) Creatinine 1.1 mg/dL (0.7-1.3) Estimated GFR (Cockcroft-Gault) 83.2 BUN/Creatinine Ratio 12 (6-20) Glucose Level 146 mg/dL (70-99) Calcium Level 9.3 mg/dL (8.5-10.1) Total Bilirubin 0.9 mg/dL (0.2-1.0) Aspartate Amino Transf (AST/SGOT) 19 U/L (15-37) Alanine Aminotransferase (ALT/SGPT) 34 U/L (16-63) Alkaline Phosphatase 66 U/L (46-116) Total Protein 6.7 g/dL (6.4-8.2) Albumin 3.2 g/dL (3.4-5.0) Albumin/Globulin Ratio 0.9 (1.0-1.7) Medications Active Scripts Medications Dose Route/Sig Max Daily Dose Days Date Category Erythromycin (Erythromycin Base) 250 Mg Capsule.dr Unknown Dose PO 11/24/17 Reported Protonix (Pantoprazole Sodium) 20 Mg Tablet.dr 1 Tab PO DAILY 11/18/17 Reported Prednisone 20 Mg Tablet 10 Mg PO DAILY 11/18/17 Reported Flonase Allergy Relief (Fluticasone Propionate) 9.9 Ml [place].susp 2 Sprays NS DAILY 11/18/17 Reported Guaifenesin-Codeine Syrup (Guaifenesin/Codeine Phosphate) 118 Ml Liquid 5 Ml PO Q6HRS 10/10/17 Rx Furosemide 20 Mg Tablet 1 Tab PO DAILY 09/10/17 Rx Lactulose 20 Gm/30 Ml Solution 20 Gm PO DAILY 08/25/17 Rx Atorvastatin Calcium 10 Mg Tablet 10 Mg PO HS 08/21/17 Reported Albuterol Sulfate Neb Soln (Albuterol Sulfate) 2.5 Mg/3 Ml Vial.neb 1 Vial NEB PRN Q4HRS 07/10/17 Rx Famotidine 20 Mg Tablet 20 Mg PO DAILY 30 06/14/17 Rx Aspir 81 (Aspirin) 81 Mg Tablet.dr 1 Tab PO DAILY 06/09/17 Reported Foltx Tablet (B12/Levomefolate Calcium/B-6) 1 Each Tablet 1 Each PO 06/09/17 Reported Symbicort 160-4.5 Mcg Inhaler (Budesonide/Formoterol Fumarate) 10.2 Gm Hfa.aer.ad 2 Puff IH BID 09/21/15 Reported Spiriva (Tiotropium [place]) 18 Mcg Cap.w.dev 2 Inh IH DAILY 09/21/15 Reported Impression . IMPRESSION: 1. Acute on chronic respiratory failure with hypoxemia secondary to acute exacerbation of chronic obstructive pulmonary disease, acute bronchitis versus pneumonia,?pulmonary embolism, ?congestive heart failure versus others. 2. Abnormal chest x-ray. 3. Acute exacerbation of chronic obstructive pulmonary disease. 4. Acute bronchitis versus pneumonia. 5. Ex-smoker. 6. Obesity ?obstructive sleep apnea-hypopnea syndrome. 7. History of congestive heart failure. Plan . PLAN AND RECOMMENDATIONS: 1. Titrate FiO2 to keep O2 saturation 92%. 2. nasal swab for influenza A and B neg. urine legionella and Strep pneumoniae antigen pending. 3. cont Zosyn and vancomycin. The patient has had multiple courses of antibiotic. deescalate soon. 4. cont Solu-Medrol 40 mg IV every 12. 5. CT angiogram of the chest, reviewed. 6. Lovenox for DVT prophylaxis. 7. Protonix for stress ulcer prophylaxis. 8. I do recommend a sleep study as an outpatient. 9. Bronchodilator. 10. Inhaled corticosteroid. 11. Continue not smoking. discussed w pt TAMAR RING MD Nov 25, 2017 08:40
[2017-11-25] MEDS: ENOXAPARIN 40 MG/0.4 ML SYRINGE. SQ SCH (10:17)
[2017-11-25 11:46] VITALS: BP 120/79
[2017-11-25] MEDS: VANCOMYCIN PER PHARMACY MC PRN (13:27)
--- NOTE | 2017-11-25 13:34 | PDOC ---
PROGRESS NOTES Vitals Vitals Vital Signs Date Time Temp Pulse Resp B/P (MAP) Pulse Ox O2 Delivery O2 Flow Rate FiO2 11/25/17 11:59 Nasal Cannula 3.0 11/25/17 11:46 98.0 86 18 120/79 (93) 95 98.0 Physical Exam Lungs: Wheezing Labs LABS Laboratory Tests Test 11/24/17 16:00 11/25/17 06:05 Influenza Type A Antigen Negative (NEGATIVE) Influenza Type B Antigen Negative (NEGATIVE) White Blood Count 6.8 x10^3/uL (4.0-11.0) Red Blood Count 4.19 x10^6/uL (4.30-5.70) Hemoglobin 13.0 g/dL (13.0-17.5) Hematocrit 37.7 % (39.0-53.0) Mean Corpuscular Volume 90 fL (79-100) Mean Corpuscular Hemoglobin 31 pg (25-35) Mean Corpuscular Hemoglobin Concent 35 g/dL (31-37) Red Cell Distribution Width 14.6 % (11.5-14.5) Platelet Count 124 x10^3/uL (140-400) Neutrophils (%) (Auto) 93 % (31-73) Lymphocytes (%) (Auto) 5 % (24-48) Monocytes (%) (Auto) 3 % (0-9) Eosinophils (%) (Auto) 0 % (0-3) Basophils (%) (Auto) 0 % (0-3) Neutrophils # (Auto) 6.3 x10^3uL (1.8-7.7) Lymphocytes # (Auto) 0.3 x10^3/uL (1.0-4.8) Monocytes # (Auto) 0.2 x10^3/uL (0.0-1.1) Eosinophils # (Auto) 0.0 x10^3/uL (0.0-0.7) Basophils # (Auto) 0.0 x10^3/uL (0.0-0.2) Sodium Level 137 mmol/L (136-145) Potassium Level 4.6 mmol/L (3.5-5.1) Chloride Level 101 mmol/L (98-107) Carbon Dioxide Level 30 mmol/L (21-32) Anion Gap 6 (6-14) Blood Urea Nitrogen 13 mg/dL (8-26) Creatinine 1.1 mg/dL (0.7-1.3) Estimated GFR (Cockcroft-Gault) 83.2 BUN/Creatinine Ratio 12 (6-20) Glucose Level 146 mg/dL (70-99) Calcium Level 9.3 mg/dL (8.5-10.1) Total Bilirubin 0.9 mg/dL (0.2-1.0) Aspartate Amino Transf (AST/SGOT) 19 U/L (15-37) Alanine Aminotransferase (ALT/SGPT) 34 U/L (16-63) Alkaline Phosphatase 66 U/L (46-116) Total Protein 6.7 g/dL (6.4-8.2) Albumin 3.2 g/dL (3.4-5.0) Albumin/Globulin Ratio 0.9 (1.0-1.7) Assessment and Plan Assessmemt and Plan Problems Medical Problems: (1) COPD with exacerbation Status: Acute Comment Review of Relevant I have reviewed the following items franki (where applicable) has been applied. Labs Laboratory Tests Test 11/24/17 03:40 11/24/17 05:22 11/24/17 16:00 11/25/17 06:05 White Blood Count 7.8 x10^3/uL (4.0-11.0) 6.8 x10^3/uL (4.0-11.0) Red Blood Count 4.36 x10^6/uL (4.30-5.70) 4.19 x10^6/uL (4.30-5.70) Hemoglobin 13.5 g/dL (13.0-17.5) 13.0 g/dL (13.0-17.5) Hematocrit 39.6 % (39.0-53.0) 37.7 % (39.0-53.0) Mean Corpuscular Volume 91 fL (79-100) 90 fL (79-100) Mean Corpuscular Hemoglobin 31 pg (25-35) 31 pg (25-35) Mean Corpuscular Hemoglobin Concent 34 g/dL (31-37) 35 g/dL (31-37) Red Cell Distribution Width 14.8 % (11.5-14.5) 14.6 % (11.5-14.5) Platelet Count 134 x10^3/uL (140-400) 124 x10^3/uL (140-400) Neutrophils (%) (Auto) 95 % (31-73) 93 % (31-73) Lymphocytes (%) (Auto) 4 % (24-48) 5 % (24-48) Monocytes (%) (Auto) 1 % (0-9) 3 % (0-9) Eosinophils (%) (Auto) 0 % (0-3) 0 % (0-3) Basophils (%) (Auto) 0 % (0-3) 0 % (0-3) Neutrophils # (Auto) 7.3 x10^3uL (1.8-7.7) 6.3 x10^3uL (1.8-7.7) Lymphocytes # (Auto) 0.3 x10^3/uL (1.0-4.8) 0.3 x10^3/uL (1.0-4.8) Monocytes # (Auto) 0.1 x10^3/uL (0.0-1.1) 0.2 x10^3/uL (0.0-1.1) Eosinophils # (Auto) 0.0 x10^3/uL (0.0-0.7) 0.0 x10^3/uL (0.0-0.7) Basophils # (Auto) 0.0 x10^3/uL (0.0-0.2) 0.0 x10^3/uL (0.0-0.2) Segmented Neutrophils % 93 % (35-66) Band Neutrophils % 2 % (0-9) Lymphocytes % 4 % (24-48) Monocytes % 1 % (0-10) Platelet Estimate Adequate (ADEQUATE) Poikilocytosis Slight Anisocytosis Slight Sodium Level 138 mmol/L (136-145) 137 mmol/L (136-145) Potassium Level 4.4 mmol/L (3.5-5.1) 4.6 mmol/L (3.5-5.1) Chloride Level 101 mmol/L (98-107) 101 mmol/L (98-107) Carbon Dioxide Level 25 mmol/L (21-32) 30 mmol/L (21-32) Anion Gap 12 (6-14) 6 (6-14) Blood Urea Nitrogen 15 mg/dL (8-26) 13 mg/dL (8-26) Creatinine 1.3 mg/dL (0.7-1.3) 1.1 mg/dL (0.7-1.3) Estimated GFR (Cockcroft-Gault) 68.6 83.2 BUN/Creatinine Ratio 12 (6-20) 12 (6-20) Glucose Level 243 mg/dL (70-99) 146 mg/dL (70-99) Calcium Level 8.7 mg/dL (8.5-10.1) 9.3 mg/dL (8.5-10.1) Total Bilirubin 0.8 mg/dL (0.2-1.0) 0.9 mg/dL (0.2-1.0) Aspartate Amino Transf (AST/SGOT) 27 U/L (15-37) 19 U/L (15-37) Alanine Aminotransferase (ALT/SGPT) 35 U/L (16-63) 34 U/L (16-63) Alkaline Phosphatase 78 U/L (46-116) 66 U/L (46-116) Troponin I Quantitative < 0.017 ng/mL (0.000-0.055) Total Protein 6.4 g/dL (6.4-8.2) 6.7 g/dL (6.4-8.2) Albumin 3.4 g/dL (3.4-5.0) 3.2 g/dL (3.4-5.0) Albumin/Globulin Ratio 1.1 (1.0-1.7) 0.9 (1.0-1.7) Urine Collection Type Void Urine Color Yellow Urine Clarity Clear Urine pH 7.0 Urine Specific [place] >=1.030 Urine Protein Negative mg/dL (NEG-TRACE) Urine Glucose (UA) 100 mg/dL (NEG) Urine Ketones (Stick) Negative mg/dL (NEG) Urine Blood Negative (NEG) Urine Nitrite Negative (NEG) Urine Bilirubin Negative (NEG) Urine Urobilinogen Dipstick 2.0 mg/dL (0.2 mg/dL) Urine Leukocyte Esterase Negative (NEG) Urine RBC 0 /HPF (0-2) Urine WBC 0 /HPF (0-4) Urine Squamous Epithelial Cells Few /LPF Urine Bacteria 0 /HPF (0-FEW) Influenza Type A Antigen Negative (NEGATIVE) Influenza Type B Antigen Negative (NEGATIVE) Laboratory Tests Test 11/24/17 16:00 11/25/17 06:05 Influenza Type A Antigen Negative (NEGATIVE) Influenza Type B Antigen Negative (NEGATIVE) White Blood Count 6.8 x10^3/uL (4.0-11.0) Red Blood Count 4.19 x10^6/uL (4.30-5.70) Hemoglobin 13.0 g/dL (13.0-17.5) Hematocrit 37.7 % (39.0-53.0) Mean Corpuscular Volume 90 fL (79-100) Mean Corpuscular Hemoglobin 31 pg (25-35) Mean Corpuscular Hemoglobin Concent 35 g/dL (31-37) Red Cell Distribution Width 14.6 % (11.5-14.5) Platelet Count 124 x10^3/uL (140-400) Neutrophils (%) (Auto) 93 % (31-73) Lymphocytes (%) (Auto) 5 % (24-48) Monocytes (%) (Auto) 3 % (0-9) Eosinophils (%) (Auto) 0 % (0-3) Basophils (%) (Auto) 0 % (0-3) Neutrophils # (Auto) 6.3 x10^3uL (1.8-7.7) Lymphocytes # (Auto) 0.3 x10^3/uL (1.0-4.8) Monocytes # (Auto) 0.2 x10^3/uL (0.0-1.1) Eosinophils # (Auto) 0.0 x10^3/uL (0.0-0.7) Basophils # (Auto) 0.0 x10^3/uL (0.0-0.2) Sodium Level 137 mmol/L (136-145) Potassium Level 4.6 mmol/L (3.5-5.1) Chloride Level 101 mmol/L (98-107) Carbon Dioxide Level 30 mmol/L (21-32) Anion Gap 6 (6-14) Blood Urea Nitrogen 13 mg/dL (8-26) Creatinine 1.1 mg/dL (0.7-1.3) Estimated GFR (Cockcroft-Gault) 83.2 BUN/Creatinine Ratio 12 (6-20) Glucose Level 146 mg/dL (70-99) Calcium Level 9.3 mg/dL (8.5-10.1) Total Bilirubin 0.9 mg/dL (0.2-1.0) Aspartate Amino Transf (AST/SGOT) 19 U/L (15-37) Alanine Aminotransferase (ALT/SGPT) 34 U/L (16-63) Alkaline Phosphatase 66 U/L (46-116) Total Protein 6.7 g/dL (6.4-8.2) Albumin 3.2 g/dL (3.4-5.0) Albumin/Globulin Ratio 0.9 (1.0-1.7) Medications Current Medications Albuterol/ Ipratropium (Duoneb) 3 ml 1X ONCE NEB Last administered on at 05:41; Start 11/24/17 at 06:00; Stop 11/24/17 at 06:01; Status DC Ondansetron HCl (Zofran) 4 mg PRN Q8HRS PRN IV NAUSEA/VOMITING 1ST CHOICE; Start 11/24/17 at 05:45; Stop 11/25/17 at 05:44; Status DC Morphine Sulfate (Morphine Sulfate) 2 mg PRN Q2HR PRN IV SEVERE PAIN Last administered on 11/24/17at 16:02; Start 11/24/17 at 05:45; Stop 11/25/17 at 05 :44; Status DC Albuterol Sulfate (Ventolin Neb Soln) 2.5 mg PRN Q6HRS PRN NEB SHORTNESS OF BREATH Last administered on 11/25/17at 00:30; Start 11/24/17 at 06:00 Albuterol/ Ipratropium (Duoneb) 3 ml RTQID NEB Last administered on 11/25/17at 11:58; Start 11/24/17 at 12:00 Methylprednisolone Sodium Succinate (SOLU-Medrol 40MG VIAL) 40 mg Q12HR IV Last administered on 11/25/17at 08:11; Start 11/24/17 at 09:45 Piperacillin Sod/ Tazobactam Sod 3.375 gm/Sodium Chloride 50 ml @ 100 mls/hr Q6HRS IV Last administered on 11/25/17at 12:53; Start 11/24/17 at 10:01 Vancomycin HCl (Vanco Per Pharmacy) 1 each PRN DAILY PRN MC SEE COMMENTS Last administered on 11/25/17at 13:27; Start 11/24/17 at 09:45 Enoxaparin Sodium (Lovenox 40mg Syringe) 40 mg Q24H SQ Last administered on at 10:17; Start 11/24/17 at 10:00 Pantoprazole Sodium (Protonix) 40 mg DAILYAC PO Last administered on at 08:10; Start 11/24/17 at 10:00 Budesonide (Pulmicort) 0.5 mg RTBID NEB Last administered on 11/25/17at 07:51; Start 11/24/17 at 10:00 Vancomycin HCl 2 gm/Sodium Chloride 500 ml @ 250 mls/hr 1X ONCE IV Last administered on 11/24/17at 15:37; Start 11/24/17 at 11:00; Stop 11/24/17 at 12 :59; Status DC Iohexol (Omnipaque 300 Mg/ml) 75 ml 1X ONCE IV Last administered on at 10:30; Start 11/24/17 at 10:30; Stop 11/24/17 at 10:31; Status DC Info (CONTRAST GIVEN -- Rx MONITORING) 1 each PRN DAILY PRN MC SEE COMMENTS; Start 11/24/17 at 10:30; Stop 11/26/17 at 10:29 Vancomycin HCl 1.25 gm/Sodium Chloride 250 ml @ 167 mls/hr Q12H IV Last administered on 11/25/17at 04:10; Start 11/25/17 at 04:00 Vancomycin HCl (Vancomycin Trough Level) 1 each 1X ONCE MC ; Start 11/26/17 at 03:30; Stop 11/26/17 at 03:31 Fluticasone Propionate (Flonase) 1 spray PRN DAILY PRN NS Congestion Last administered on 11/25/17at 01:15; Start 11/25/17 at 01:15 Furosemide (Lasix) 20 mg 1X ONCE PO Last administered on 11/25/17at 01:15; Start 11/25/17 at 01:30; Stop 11/25/17 at 01:31; Status DC Acetaminophen/ Hydrocodone Bitart (Lortab 5/325) 1 tab PRN Q4HRS PRN PO MODERATE PAIN Last administered on 11/25/17at 08:10; Start 11/25/17 at 07:30 Morphine Sulfate (Morphine Sulfate) 2 mg PRN Q2HR PRN IV SEVERE PAIN; Start at 07:30 Lactobacillus Rhamnosus (Culturelle) 1 cap BID PO ; Start 11/25/17 at 15:00 Active Scripts Active Guaifenesin-Codeine Syrup (Guaifenesin/Codeine Phosphate) 118 Ml Liquid 5 Ml PO Q6HRS Furosemide 20 Mg Tablet 1 Tab PO DAILY Lactulose 20 Gm/30 Ml Solution 20 Gm PO DAILY Albuterol Sulfate Neb Soln (Albuterol Sulfate) 2.5 Mg/3 Ml Vial.neb 1 Vial NEB PRN Q4HRS Famotidine 20 Mg Tablet 20 Mg PO DAILY 30 Days Reported Erythromycin (Erythromycin Base) 250 Mg Capsule.dr Unknown Dose PO Protonix (Pantoprazole Sodium) 20 Mg Tablet.dr 1 Tab PO DAILY Prednisone 20 Mg Tablet 10 Mg PO DAILY Flonase Allergy Relief (Fluticasone Propionate) 9.9 Ml [place].susp 2 Sprays NS DAILY Atorvastatin Calcium 10 Mg Tablet 10 Mg PO HS Aspir 81 (Aspirin) 81 Mg Tablet.dr 1 Tab PO DAILY Foltx Tablet (B12/Levomefolate Calcium/B-6) 1 Each Tablet 1 Each PO Symbicort 160-4.5 Mcg Inhaler (Budesonide/Formoterol Fumarate) 10.2 Gm Hfa.aer.ad 2 Puff IH BID Spiriva (Tiotropium [place]) 18 Mcg Cap.w.dev 2 Inh IH DAILY Vitals/I & O Vital Sign - Last 24 Hours 11/24/17 11/24/17 11/24/17 11/24/17 15:13 15:37 16:02 16:32 Temp 98.1 98.1 Pulse 100 Resp 18 20 20 B/P (MAP) 126/79 (95) Pulse Ox 99 99 99 O2 Delivery Nasal Cannula Nasal Cannula Nasal Cannula O2 Flow Rate 3.0 4.0 4.0 11/24/17 11/24/17 11/24/17 11/24/17 18:20 18:21 19:00 20:00 Temp 97.9 97.9 Pulse 85 Resp 18 B/P (MAP) 100/67 (78) Pulse Ox 97 O2 Delivery Nasal Cannula Nasal Cannula Nasal Cannula Nasal Cannula O2 Flow Rate 3.0 3.0 3.0 3.0 10/13/18 10/14/18 10/14/18 10/14/18 22:49 00:31 03:00 07:45 Temp 98.2 97.9 97.6 98.2 97.9 97.6 Pulse 93 107 79 Resp 18 19 19 B/P (MAP) 100/57 (71) 117/81 (93) 125/82 (96) Pulse Ox 96 97 98 O2 Delivery Nasal Cannula Nasal Cannula Nasal Cannula Nasal Cannula O2 Flow Rate 3.0 3.0 3.0 3.0 11/25/17 11/25/17 11/25/17 11/25/17 07:50 07:53 07:56 08:10 Pulse Ox 95 95 95 O2 Delivery Nasal Cannula Nasal Cannula Nasal Cannula Nasal Cannula O2 Flow Rate 2.0 3.0 3.0 2.0 11/25/17 11/25/17 11/25/17 09:10 11:46 11:59 Temp 98.0 98.0 Pulse 86 Resp 18 B/P (MAP) 120/79 (93) Pulse Ox 95 95 O2 Delivery Nasal Cannula Nasal Cannula Nasal Cannula O2 Flow Rate 2.0 3.0 3.0 Intake and Output 11/24/17 11/24/17 11/25/17 15:00 23:00 07:00 Intake Total 500 ml 220 ml Balance 500 ml 220 ml TAMMY MARKS III DO Nov 25, 2017 13:34
--- NOTE | 2017-11-25 13:40 | PDOC ---
PROGRESS NOTES Chief Complaint Chief Complaint Acute on chronic respiratory failure COPD exacerbation Severe ballous emphysema No PE History of Present Illness History of Present Illness Pt seen and examined Dw RN Able to take shower Vitals Vitals Vital Signs Date Time Temp Pulse Resp B/P (MAP) Pulse Ox O2 Delivery O2 Flow Rate FiO2 11/25/17 11:59 Nasal Cannula 3.0 11/25/17 11:46 98.0 86 18 120/79 (93) 95 98.0 Physical Exam General: Alert, Oriented X3 Heart: Regular rate, Normal S1 Lungs: Wheezing Abdomen: Normal bowel sounds, Soft Extremities: No clubbing, No edema Skin: No rashes, No breakdown Labs LABS Laboratory Tests Test 11/24/17 16:00 11/25/17 06:05 Influenza Type A Antigen Negative (NEGATIVE) Influenza Type B Antigen Negative (NEGATIVE) White Blood Count 6.8 x10^3/uL (4.0-11.0) Red Blood Count 4.19 x10^6/uL (4.30-5.70) Hemoglobin 13.0 g/dL (13.0-17.5) Hematocrit 37.7 % (39.0-53.0) Mean Corpuscular Volume 90 fL (79-100) Mean Corpuscular Hemoglobin 31 pg (25-35) Mean Corpuscular Hemoglobin Concent 35 g/dL (31-37) Red Cell Distribution Width 14.6 % (11.5-14.5) Platelet Count 124 x10^3/uL (140-400) Neutrophils (%) (Auto) 93 % (31-73) Lymphocytes (%) (Auto) 5 % (24-48) Monocytes (%) (Auto) 3 % (0-9) Eosinophils (%) (Auto) 0 % (0-3) Basophils (%) (Auto) 0 % (0-3) Neutrophils # (Auto) 6.3 x10^3uL (1.8-7.7) Lymphocytes # (Auto) 0.3 x10^3/uL (1.0-4.8) Monocytes # (Auto) 0.2 x10^3/uL (0.0-1.1) Eosinophils # (Auto) 0.0 x10^3/uL (0.0-0.7) Basophils # (Auto) 0.0 x10^3/uL (0.0-0.2) Sodium Level 137 mmol/L (136-145) Potassium Level 4.6 mmol/L (3.5-5.1) Chloride Level 101 mmol/L (98-107) Carbon Dioxide Level 30 mmol/L (21-32) Anion Gap 6 (6-14) Blood Urea Nitrogen 13 mg/dL (8-26) Creatinine 1.1 mg/dL (0.7-1.3) Estimated GFR (Cockcroft-Gault) 83.2 BUN/Creatinine Ratio 12 (6-20) Glucose Level 146 mg/dL (70-99) Calcium Level 9.3 mg/dL (8.5-10.1) Total Bilirubin 0.9 mg/dL (0.2-1.0) Aspartate Amino Transf (AST/SGOT) 19 U/L (15-37) Alanine Aminotransferase (ALT/SGPT) 34 U/L (16-63) Alkaline Phosphatase 66 U/L (46-116) Total Protein 6.7 g/dL (6.4-8.2) Albumin 3.2 g/dL (3.4-5.0) Albumin/Globulin Ratio 0.9 (1.0-1.7) Review of Systems Review of Systems Denies fever Mild hunger pains Assessment and Plan Assessmemt and Plan Assessment: Acute on chronic respiratory failure COPD exacerbation Severe ballous emphysema No PE Plan: Antibiotics Steroids O2 nc Lovenox Duo Nebs Labs Home meds Await pulmonary input Comment Review of Relevant I have reviewed the following items franki (where applicable) has been applied. Labs Laboratory Tests Test 11/24/17 03:40 11/24/17 05:22 11/24/17 16:00 11/25/17 06:05 White Blood Count 7.8 x10^3/uL (4.0-11.0) 6.8 x10^3/uL (4.0-11.0) Red Blood Count 4.36 x10^6/uL (4.30-5.70) 4.19 x10^6/uL (4.30-5.70) Hemoglobin 13.5 g/dL (13.0-17.5) 13.0 g/dL (13.0-17.5) Hematocrit 39.6 % (39.0-53.0) 37.7 % (39.0-53.0) Mean Corpuscular Volume 91 fL (79-100) 90 fL (79-100) Mean Corpuscular Hemoglobin 31 pg (25-35) 31 pg (25-35) Mean Corpuscular Hemoglobin Concent 34 g/dL (31-37) 35 g/dL (31-37) Red Cell Distribution Width 14.8 % (11.5-14.5) 14.6 % (11.5-14.5) Platelet Count 134 x10^3/uL (140-400) 124 x10^3/uL (140-400) Neutrophils (%) (Auto) 95 % (31-73) 93 % (31-73) Lymphocytes (%) (Auto) 4 % (24-48) 5 % (24-48) Monocytes (%) (Auto) 1 % (0-9) 3 % (0-9) Eosinophils (%) (Auto) 0 % (0-3) 0 % (0-3) Basophils (%) (Auto) 0 % (0-3) 0 % (0-3) Neutrophils # (Auto) 7.3 x10^3uL (1.8-7.7) 6.3 x10^3uL (1.8-7.7) Lymphocytes # (Auto) 0.3 x10^3/uL (1.0-4.8) 0.3 x10^3/uL (1.0-4.8) Monocytes # (Auto) 0.1 x10^3/uL (0.0-1.1) 0.2 x10^3/uL (0.0-1.1) Eosinophils # (Auto) 0.0 x10^3/uL (0.0-0.7) 0.0 x10^3/uL (0.0-0.7) Basophils # (Auto) 0.0 x10^3/uL (0.0-0.2) 0.0 x10^3/uL (0.0-0.2) Segmented Neutrophils % 93 % (35-66) Band Neutrophils % 2 % (0-9) Lymphocytes % 4 % (24-48) Monocytes % 1 % (0-10) Platelet Estimate Adequate (ADEQUATE) Poikilocytosis Slight Anisocytosis Slight Sodium Level 138 mmol/L (136-145) 137 mmol/L (136-145) Potassium Level 4.4 mmol/L (3.5-5.1) 4.6 mmol/L (3.5-5.1) Chloride Level 101 mmol/L (98-107) 101 mmol/L (98-107) Carbon Dioxide Level 25 mmol/L (21-32) 30 mmol/L (21-32) Anion Gap 12 (6-14) 6 (6-14) Blood Urea Nitrogen 15 mg/dL (8-26) 13 mg/dL (8-26) Creatinine 1.3 mg/dL (0.7-1.3) 1.1 mg/dL (0.7-1.3) Estimated GFR (Cockcroft-Gault) 68.6 83.2 BUN/Creatinine Ratio 12 (6-20) 12 (6-20) Glucose Level 243 mg/dL (70-99) 146 mg/dL (70-99) Calcium Level 8.7 mg/dL (8.5-10.1) 9.3 mg/dL (8.5-10.1) Total Bilirubin 0.8 mg/dL (0.2-1.0) 0.9 mg/dL (0.2-1.0) Aspartate Amino Transf (AST/SGOT) 27 U/L (15-37) 19 U/L (15-37) Alanine Aminotransferase (ALT/SGPT) 35 U/L (16-63) 34 U/L (16-63) Alkaline Phosphatase 78 U/L (46-116) 66 U/L (46-116) Troponin I Quantitative < 0.017 ng/mL (0.000-0.055) Total Protein 6.4 g/dL (6.4-8.2) 6.7 g/dL (6.4-8.2) Albumin 3.4 g/dL (3.4-5.0) 3.2 g/dL (3.4-5.0) Albumin/Globulin Ratio 1.1 (1.0-1.7) 0.9 (1.0-1.7) Urine Collection Type Void Urine Color Yellow Urine Clarity Clear Urine pH 7.0 Urine Specific [place] >=1.030 Urine Protein Negative mg/dL (NEG-TRACE) Urine Glucose (UA) 100 mg/dL (NEG) Urine Ketones (Stick) Negative mg/dL (NEG) Urine Blood Negative (NEG) Urine Nitrite Negative (NEG) Urine Bilirubin Negative (NEG) Urine Urobilinogen Dipstick 2.0 mg/dL (0.2 mg/dL) Urine Leukocyte Esterase Negative (NEG) Urine RBC 0 /HPF (0-2) Urine WBC 0 /HPF (0-4) Urine Squamous Epithelial Cells Few /LPF Urine Bacteria 0 /HPF (0-FEW) Influenza Type A Antigen Negative (NEGATIVE) Influenza Type B Antigen Negative (NEGATIVE) Laboratory Tests Test 11/24/17 16:00 11/25/17 06:05 Influenza Type A Antigen Negative (NEGATIVE) Influenza Type B Antigen Negative (NEGATIVE) White Blood Count 6.8 x10^3/uL (4.0-11.0) Red Blood Count 4.19 x10^6/uL (4.30-5.70) Hemoglobin 13.0 g/dL (13.0-17.5) Hematocrit 37.7 % (39.0-53.0) Mean Corpuscular Volume 90 fL (79-100) Mean Corpuscular Hemoglobin 31 pg (25-35) Mean Corpuscular Hemoglobin Concent 35 g/dL (31-37) Red Cell Distribution Width 14.6 % (11.5-14.5) Platelet Count 124 x10^3/uL (140-400) Neutrophils (%) (Auto) 93 % (31-73) Lymphocytes (%) (Auto) 5 % (24-48) Monocytes (%) (Auto) 3 % (0-9) Eosinophils (%) (Auto) 0 % (0-3) Basophils (%) (Auto) 0 % (0-3) Neutrophils # (Auto) 6.3 x10^3uL (1.8-7.7) Lymphocytes # (Auto) 0.3 x10^3/uL (1.0-4.8) Monocytes # (Auto) 0.2 x10^3/uL (0.0-1.1) Eosinophils # (Auto) 0.0 x10^3/uL (0.0-0.7) Basophils # (Auto) 0.0 x10^3/uL (0.0-0.2) Sodium Level 137 mmol/L (136-145) Potassium Level 4.6 mmol/L (3.5-5.1) Chloride Level 101 mmol/L (98-107) Carbon Dioxide Level 30 mmol/L (21-32) Anion Gap 6 (6-14) Blood Urea Nitrogen 13 mg/dL (8-26) Creatinine 1.1 mg/dL (0.7-1.3) Estimated GFR (Cockcroft-Gault) 83.2 BUN/Creatinine Ratio 12 (6-20) Glucose Level 146 mg/dL (70-99) Calcium Level 9.3 mg/dL (8.5-10.1) Total Bilirubin 0.9 mg/dL (0.2-1.0) Aspartate Amino Transf (AST/SGOT) 19 U/L (15-37) Alanine Aminotransferase (ALT/SGPT) 34 U/L (16-63) Alkaline Phosphatase 66 U/L (46-116) Total Protein 6.7 g/dL (6.4-8.2) Albumin 3.2 g/dL (3.4-5.0) Albumin/Globulin Ratio 0.9 (1.0-1.7) Medications Current Medications Albuterol/ Ipratropium (Duoneb) 3 ml 1X ONCE NEB Last administered on at 05:41; Start 11/24/17 at 06:00; Stop 11/24/17 at 06:01; Status DC Ondansetron HCl (Zofran) 4 mg PRN Q8HRS PRN IV NAUSEA/VOMITING 1ST CHOICE; Start 11/24/17 at 05:45; Stop 11/25/17 at 05:44; Status DC Morphine Sulfate (Morphine Sulfate) 2 mg PRN Q2HR PRN IV SEVERE PAIN Last administered on 11/24/17at 16:02; Start 11/24/17 at 05:45; Stop 11/25/17 at 05 :44; Status DC Albuterol Sulfate (Ventolin Neb Soln) 2.5 mg PRN Q6HRS PRN NEB SHORTNESS OF BREATH Last administered on 11/25/17at 00:30; Start 11/24/17 at 06:00 Albuterol/ Ipratropium (Duoneb) 3 ml RTQID NEB Last administered on 11/25/17at 11:58; Start 11/24/17 at 12:00 Methylprednisolone Sodium Succinate (SOLU-Medrol 40MG VIAL) 40 mg Q12HR IV Last administered on 11/25/17at 08:11; Start 11/24/17 at 09:45 Piperacillin Sod/ Tazobactam Sod 3.375 gm/Sodium Chloride 50 ml @ 100 mls/hr Q6HRS IV Last administered on 11/25/17at 12:53; Start 11/24/17 at 10:01 Vancomycin HCl (Vanco Per Pharmacy) 1 each PRN DAILY PRN MC SEE COMMENTS Last administered on 11/25/17at 13:27; Start 11/24/17 at 09:45 Enoxaparin Sodium (Lovenox 40mg Syringe) 40 mg Q24H SQ Last administered on at 10:17; Start 11/24/17 at 10:00 Pantoprazole Sodium (Protonix) 40 mg DAILYAC PO Last administered on at 08:10; Start 11/24/17 at 10:00 Budesonide (Pulmicort) 0.5 mg RTBID NEB Last administered on 11/25/17at 07:51; Start 11/24/17 at 10:00 Vancomycin HCl 2 gm/Sodium Chloride 500 ml @ 250 mls/hr 1X ONCE IV Last administered on 11/24/17at 15:37; Start 11/24/17 at 11:00; Stop 11/24/17 at 12 :59; Status DC Iohexol (Omnipaque 300 Mg/ml) 75 ml 1X ONCE IV Last administered on at 10:30; Start 11/24/17 at 10:30; Stop 11/24/17 at 10:31; Status DC Info (CONTRAST GIVEN -- Rx MONITORING) 1 each PRN DAILY PRN MC SEE COMMENTS; Start 11/24/17 at 10:30; Stop 11/26/17 at 10:29 Vancomycin HCl 1.25 gm/Sodium Chloride 250 ml @ 167 mls/hr Q12H IV Last administered on 11/25/17at 04:10; Start 11/25/17 at 04:00 Vancomycin HCl (Vancomycin Trough Level) 1 each 1X ONCE MC ; Start 11/26/17 at 03:30; Stop 11/26/17 at 03:31 Fluticasone Propionate (Flonase) 1 spray PRN DAILY PRN NS Congestion Last administered on 11/25/17at 01:15; Start 10/14/18 at 01:15 Furosemide (Lasix) 20 mg 1X ONCE PO Last administered on 11/25/17at 01:15; Start 11/25/17 at 01:30; Stop 11/25/17 at 01:31; Status DC Acetaminophen/ Hydrocodone Bitart (Lortab 5/325) 1 tab PRN Q4HRS PRN PO MODERATE PAIN Last administered on 11/25/17at 08:10; Start 11/25/17 at 07:30 Morphine Sulfate (Morphine Sulfate) 2 mg PRN Q2HR PRN IV SEVERE PAIN; Start at 07:30 Lactobacillus Rhamnosus (Culturelle) 1 cap BID PO ; Start 11/25/17 at 15:00 Active Scripts Active Guaifenesin-Codeine Syrup (Guaifenesin/Codeine Phosphate) 118 Ml Liquid 5 Ml PO Q6HRS Furosemide 20 Mg Tablet 1 Tab PO DAILY Lactulose 20 Gm/30 Ml Solution 20 Gm PO DAILY Albuterol Sulfate Neb Soln (Albuterol Sulfate) 2.5 Mg/3 Ml Vial.neb 1 Vial NEB PRN Q4HRS Famotidine 20 Mg Tablet 20 Mg PO DAILY 30 Days Reported Erythromycin (Erythromycin Base) 250 Mg Capsule.dr Unknown Dose PO Protonix (Pantoprazole Sodium) 20 Mg Tablet.dr 1 Tab PO DAILY Prednisone 20 Mg Tablet 10 Mg PO DAILY Flonase Allergy Relief (Fluticasone Propionate) 9.9 Ml [place].susp 2 Sprays NS DAILY Atorvastatin Calcium 10 Mg Tablet 10 Mg PO HS Aspir 81 (Aspirin) 81 Mg Tablet.dr 1 Tab PO DAILY Foltx Tablet (B12/Levomefolate Calcium/B-6) 1 Each Tablet 1 Each PO Symbicort 160-4.5 Mcg Inhaler (Budesonide/Formoterol Fumarate) 10.2 Gm Hfa.aer.ad 2 Puff IH BID Spiriva (Tiotropium [place]) 18 Mcg Cap.w.dev 2 Inh IH DAILY Vitals/I & O Vital Sign - Last 24 Hours 11/24/17 11/24/17 11/24/17 11/24/17 15:13 15:37 16:02 16:32 Temp 98.1 98.1 Pulse 100 Resp 18 20 20 B/P (MAP) 126/79 (95) Pulse Ox 99 99 99 O2 Delivery Nasal Cannula Nasal Cannula Nasal Cannula O2 Flow Rate 3.0 4.0 4.0 11/24/17 11/24/17 11/24/17 11/24/17 18:20 18:21 19:00 20:00 Temp 97.9 97.9 Pulse 85 Resp 18 B/P (MAP) 100/67 (78) Pulse Ox 97 O2 Delivery Nasal Cannula Nasal Cannula Nasal Cannula Nasal Cannula O2 Flow Rate 3.0 3.0 3.0 3.0 11/24/17 11/25/17 11/25/17 11/25/17 22:49 00:31 03:00 07:45 Temp 98.2 97.9 97.6 98.2 97.9 97.6 Pulse 93 107 79 Resp 18 19 19 B/P (MAP) 100/57 (71) 117/81 (93) 125/82 (96) Pulse Ox 96 97 98 O2 Delivery Nasal Cannula Nasal Cannula Nasal Cannula Nasal Cannula O2 Flow Rate 3.0 3.0 3.0 3.0 11/25/17 11/25/17 11/25/17 11/25/17 07:50 07:53 07:56 08:10 Pulse Ox 95 95 95 O2 Delivery Nasal Cannula Nasal Cannula Nasal Cannula Nasal Cannula O2 Flow Rate 2.0 3.0 3.0 2.0 11/25/17 11/25/17 11/25/17 09:10 11:46 11:59 Temp 98.0 98.0 Pulse 86 Resp 18 B/P (MAP) 120/79 (93) Pulse Ox 95 95 O2 Delivery Nasal Cannula Nasal Cannula Nasal Cannula O2 Flow Rate 2.0 3.0 3.0 Intake and Output 11/24/17 11/24/17 11/25/17 15:00 23:00 07:00 Intake Total 500 ml 220 ml Balance 500 ml 220 ml KENDRICK,NIAL K III DO Nov 25, 2017 13:40
[2017-11-25 15:40] VITALS: BP 118/73
[2017-11-25] MEDS: LACTOBACILLUS RHAMNOSUS GG 1 CAPSULE. PO SCH ×2 (16:39→20:16)
[2017-11-25 19:00] VITALS: BP 117/76
[2017-11-25] MEDS: guaiFENesin/CODEINE 100mg/10mg 5 ML LIQUID PO PRN (20:15)
[2017-11-25] MEDS: ATORVASTATIN CALCIUM 10 MG TABLET. PO SCH (20:15)
[2017-11-25 23:00] VITALS: BP 123/70
[2017-11-26] MEDS: PIPERACILLIN/TAZOBACTAM 3.375 GM in IV NORMAL SALINE 50ML 50 ML IV SCH ×4 (00:16→19:40)
[2017-11-26] MEDS: HYDROcodone/APAP 5/325MG 1 TAB TABLET PO PRN ×3 (03:14→20:29)
[2017-11-26] MEDS: ALBUTEROL SULFATE 2.5 MG/3 ML NEBU. NEB PRN (03:29)
[2017-11-26 03:35] VITALS: BP 117/70
[2017-11-26 04:03] LABS: BASO % 0 % (0-3); EOS % 0 % (0-3); HEMATOCRIT 38.1 % (39.0-53.0); HEMOGLOBIN 13.4 g/dL (13.0-17.5); LYMPH # 0.4 x10^3/uL (1.0-4.8); LYMPH % 4 % (24-48); MEAN CORPUSCULAR HEMOGLOBIN 31 pg (25-35); MEAN CORPUSCULAR HGB CONC 35 g/dL (31-37); MEAN CORPUSCULAR VOLUME 89 fL (79-100); MONO # 0.2 x10^3/uL (0.0-1.1); MONO % 3 % (0-9); NEUT # 8.4 x10^3uL (1.8-7.7); NEUT % 93 % (31-73); PLATELET COUNT 126 x10^3/uL (140-400); RED BLOOD COUNT 4.28 x10^6/uL (4.30-5.70); RED CELL DISTRIBUTION WIDTH 14.8 % (11.5-14.5)
[2017-11-26 04:33] LABS: ALBUMIN 3.2 g/dL (3.4-5.0); ALBUMIN/GLOBULIN RATIO 1.1 (1.0-1.7); CALCIUM 9.4 mg/dL (8.5-10.1); CREATININE 1.2 mg/dL (0.7-1.3); GFR 75.2; POTASSIUM 4.4 mmol/L (3.5-5.1); TOTAL BILIRUBIN 0.6 mg/dL (0.2-1.0); TOTAL PROTEIN 6.2 g/dL (6.4-8.2)
[2017-11-26 04:44] LABS: VANC TR 12.5 mcg/mL (10.0-20.0)
[2017-11-26] MEDS: VANCOMYCIN 1.25 GM in IV NORMAL SALINE 250ML 250 ML IV SCH ×2 (05:04→16:00)
[2017-11-26] MEDS: VANCOMYCIN PER PHARMACY MC PRN (05:09)
[2017-11-26 07:00] VITALS: BP 156/92
[2017-11-26] MEDS: PANTOPRAZOLE 40 MG TABLET.DR. PO SCH ×2 (07:30→09:19)
[2017-11-26] MEDS: BUDESONIDE 0.5 MG/2 ML NEBU. NEB SCH ×2 (07:53→19:44)
[2017-11-26] MEDS: IPRATRPIUM/ALBUTEROL 0.5/2.5MG 3 ML NEBU. NEB SCH ×4 (07:53→19:44)
[2017-11-26] MEDS ORDERED: FAMOTIDINE 20 MG TABLET. PO SCH (09:00)
[2017-11-26] MEDS: ASPIRIN ENTERIC COATED 81 MG TABLET.DR. PO SCH (09:18)
[2017-11-26] MEDS: FUROSEMIDE 20 MG TABLET PO SCH (09:20)
[2017-11-26] MEDS: LACTOBACILLUS RHAMNOSUS GG 1 CAPSULE. PO SCH ×2 (09:21→20:29)
[2017-11-26] MEDS: guaiFENesin/CODEINE 100mg/10mg 5 ML LIQUID PO PRN ×2 (09:22→20:29)
[2017-11-26] MEDS: FLUTICASONE 50MCG/NASAL SPRAY 16GM BOTTLE. NS PRN (09:23)
[2017-11-26] MEDS: VITAMIN B12,B9,B6 COMPLEX 1 TABLET. PO SCH (09:24)
[2017-11-26] MEDS: LACTULOSE 20 GM/30 ML SOLUTION. PO SCH (09:27)
[2017-11-26] MEDS: methylPREDNISolone SOD SUCC PF 40 MG/ML VIAL. IV SCH (09:36)
--- NOTE | 2017-11-26 10:42 | PDOC ---
PULMONARY PROGRESS NOTES Subjective sob better, has cough, no pain Vitals Vital Signs Date Time Temp Pulse Resp B/P (MAP) Pulse Ox O2 Delivery O2 Flow Rate FiO2 11/26/17 07:53 95 Nasal Cannula 2.0 11/26/17 07:00 97.7 75 20 156/92 (113) 97.7 ROS: No Nausea General: Alert, No acute distress Lungs: Other (decrease bs) Cardiovascular: S1, S2 Abdomen: Soft, Non-tender Neuro Exam: Alert Extremities: No Edema, Other Skin: Warm Labs Laboratory Tests Test 11/24/17 16:00 11/25/17 06:05 11/26/17 03:45 Influenza Type A Antigen Negative (NEGATIVE) Influenza Type B Antigen Negative (NEGATIVE) White Blood Count 6.8 x10^3/uL (4.0-11.0) 9.0 x10^3/uL (4.0-11.0) Red Blood Count 4.19 x10^6/uL (4.30-5.70) 4.28 x10^6/uL (4.30-5.70) Hemoglobin 13.0 g/dL (13.0-17.5) 13.4 g/dL (13.0-17.5) Hematocrit 37.7 % (39.0-53.0) 38.1 % (39.0-53.0) Mean Corpuscular Volume 90 fL (79-100) 89 fL (79-100) Mean Corpuscular Hemoglobin 31 pg (25-35) 31 pg (25-35) Mean Corpuscular Hemoglobin Concent 35 g/dL (31-37) 35 g/dL (31-37) Red Cell Distribution Width 14.6 % (11.5-14.5) 14.8 % (11.5-14.5) Platelet Count 124 x10^3/uL (140-400) 126 x10^3/uL (140-400) Neutrophils (%) (Auto) 93 % (31-73) 93 % (31-73) Lymphocytes (%) (Auto) 5 % (24-48) 4 % (24-48) Monocytes (%) (Auto) 3 % (0-9) 3 % (0-9) Eosinophils (%) (Auto) 0 % (0-3) 0 % (0-3) Basophils (%) (Auto) 0 % (0-3) 0 % (0-3) Neutrophils # (Auto) 6.3 x10^3uL (1.8-7.7) 8.4 x10^3uL (1.8-7.7) Lymphocytes # (Auto) 0.3 x10^3/uL (1.0-4.8) 0.4 x10^3/uL (1.0-4.8) Monocytes # (Auto) 0.2 x10^3/uL (0.0-1.1) 0.2 x10^3/uL (0.0-1.1) Eosinophils # (Auto) 0.0 x10^3/uL (0.0-0.7) 0.0 x10^3/uL (0.0-0.7) Basophils # (Auto) 0.0 x10^3/uL (0.0-0.2) 0.0 x10^3/uL (0.0-0.2) Sodium Level 137 mmol/L (136-145) 139 mmol/L (136-145) Potassium Level 4.6 mmol/L (3.5-5.1) 4.4 mmol/L (3.5-5.1) Chloride Level 101 mmol/L (98-107) 102 mmol/L (98-107) Carbon Dioxide Level 30 mmol/L (21-32) 30 mmol/L (21-32) Anion Gap 6 (6-14) 7 (6-14) Blood Urea Nitrogen 13 mg/dL (8-26) 15 mg/dL (8-26) Creatinine 1.1 mg/dL (0.7-1.3) 1.2 mg/dL (0.7-1.3) Estimated GFR (Cockcroft-Gault) 83.2 75.2 BUN/Creatinine Ratio 12 (6-20) 13 (6-20) Glucose Level 146 mg/dL (70-99) 192 mg/dL (70-99) Calcium Level 9.3 mg/dL (8.5-10.1) 9.4 mg/dL (8.5-10.1) Total Bilirubin 0.9 mg/dL (0.2-1.0) 0.6 mg/dL (0.2-1.0) Aspartate Amino Transf (AST/SGOT) 19 U/L (15-37) 15 U/L (15-37) Alanine Aminotransferase (ALT/SGPT) 34 U/L (16-63) 31 U/L (16-63) Alkaline Phosphatase 66 U/L (46-116) 68 U/L (46-116) Total Protein 6.7 g/dL (6.4-8.2) 6.2 g/dL (6.4-8.2) Albumin 3.2 g/dL (3.4-5.0) 3.2 g/dL (3.4-5.0) Albumin/Globulin Ratio 0.9 (1.0-1.7) 1.1 (1.0-1.7) Vancomycin Level Trough 12.5 mcg/mL (10.0-20.0) Vancomycin Last Dose Date Vancomycin Last Dose Time Laboratory Tests Test 11/26/17 03:45 White Blood Count 9.0 x10^3/uL (4.0-11.0) Red Blood Count 4.28 x10^6/uL (4.30-5.70) Hemoglobin 13.4 g/dL (13.0-17.5) Hematocrit 38.1 % (39.0-53.0) Mean Corpuscular Volume 89 fL (79-100) Mean Corpuscular Hemoglobin 31 pg (25-35) Mean Corpuscular Hemoglobin Concent 35 g/dL (31-37) Red Cell Distribution Width 14.8 % (11.5-14.5) Platelet Count 126 x10^3/uL (140-400) Neutrophils (%) (Auto) 93 % (31-73) Lymphocytes (%) (Auto) 4 % (24-48) Monocytes (%) (Auto) 3 % (0-9) Eosinophils (%) (Auto) 0 % (0-3) Basophils (%) (Auto) 0 % (0-3) Neutrophils # (Auto) 8.4 x10^3uL (1.8-7.7) Lymphocytes # (Auto) 0.4 x10^3/uL (1.0-4.8) Monocytes # (Auto) 0.2 x10^3/uL (0.0-1.1) Eosinophils # (Auto) 0.0 x10^3/uL (0.0-0.7) Basophils # (Auto) 0.0 x10^3/uL (0.0-0.2) Sodium Level 139 mmol/L (136-145) Potassium Level 4.4 mmol/L (3.5-5.1) Chloride Level 102 mmol/L (98-107) Carbon Dioxide Level 30 mmol/L (21-32) Anion Gap 7 (6-14) Blood Urea Nitrogen 15 mg/dL (8-26) Creatinine 1.2 mg/dL (0.7-1.3) Estimated GFR (Cockcroft-Gault) 75.2 BUN/Creatinine Ratio 13 (6-20) Glucose Level 192 mg/dL (70-99) Calcium Level 9.4 mg/dL (8.5-10.1) Total Bilirubin 0.6 mg/dL (0.2-1.0) Aspartate Amino Transf (AST/SGOT) 15 U/L (15-37) Alanine Aminotransferase (ALT/SGPT) 31 U/L (16-63) Alkaline Phosphatase 68 U/L (46-116) Total Protein 6.2 g/dL (6.4-8.2) Albumin 3.2 g/dL (3.4-5.0) Albumin/Globulin Ratio 1.1 (1.0-1.7) Vancomycin Level Trough 12.5 mcg/mL (10.0-20.0) Vancomycin Last Dose Date Vancomycin Last Dose Time Medications Active Scripts Medications Dose Route/Sig Max Daily Dose Days Date Category Erythromycin (Erythromycin Base) 250 Mg Capsule.dr Unknown Dose PO 11/24/17 Reported Protonix (Pantoprazole Sodium) 20 Mg Tablet.dr 1 Tab PO DAILY 11/18/17 Reported Prednisone 20 Mg Tablet 10 Mg PO DAILY 11/18/17 Reported Flonase Allergy Relief (Fluticasone Propionate) 9.9 Ml [place].susp 2 Sprays NS DAILY 11/18/17 Reported Guaifenesin-Codeine Syrup (Guaifenesin/Codeine Phosphate) 118 Ml Liquid 5 Ml PO Q6HRS 10/10/17 Rx Furosemide 20 Mg Tablet 1 Tab PO DAILY 09/10/17 Rx Lactulose 20 Gm/30 Ml Solution 20 Gm PO DAILY 08/25/17 Rx Atorvastatin Calcium 10 Mg Tablet 10 Mg PO HS 08/21/17 Reported Albuterol Sulfate Neb Soln (Albuterol Sulfate) 2.5 Mg/3 Ml Vial.neb 1 Vial NEB PRN Q4HRS 07/10/17 Rx Famotidine 20 Mg Tablet 20 Mg PO DAILY 30 06/14/17 Rx Aspir 81 (Aspirin) 81 Mg Tablet. 1 Tab PO DAILY 06/09/17 Reported Foltx Tablet (B12/Levomefolate Calcium/B-6) 1 Each Tablet 1 Each PO 06/09/17 Reported Symbicort 160-4.5 Mcg Inhaler (Budesonide/Formoterol Fumarate) 10.2 Gm Hfa.aer.ad 2 Puff IH BID 09/21/15 Reported Spiriva (Tiotropium [place]) 18 Mcg Cap.w.dev 2 Inh IH DAILY 09/21/[address] CHEST . There is no CT evidence of pulmonary embolus. 2. There is bilateral lower and right middle lobe bronchitis. Patchy consolidations in the lateral and posterior right lower lobe may be atelectasis or pneumonia. 3. Severe bullous emphysema in the left lung. Impression . 1. Acute on chronic respiratory failure with hypoxemia secondary to acute exacerbation of chronic obstructive pulmonary disease / RLL pneumonia, 2. Abnormal chest x-ray and ct chest 3. Acute exacerbation of chronic obstructive pulmonary disease. 4. RLL pneumonia , best seen on ct chest 5. Ex-smoker. 6. Obesity ?obstructive sleep apnea-hypopnea syndrome. 7. History of congestive heart failure. Plan . 1. Titrate FiO2 to keep O2 saturation 92%. 2. nasal swab for influenza A and B neg. urine legionella and Strep pneumoniae antigen pending. 3. cont Zosyn and vancomycin. The patient has had multiple courses of antibiotic. deescalate IN AM 4. Taper steroids 5. CT angiogram of the chest, reviewed. 6. Lovenox for DVT prophylaxis. 7. Protonix for stress ulcer prophylaxis. 8. I do recommend a sleep study as an outpatient. 9. Bronchodilator. 10. Inhaled corticosteroid. 11. Continue not smoking. discussed w pt/ possible dc home in 24 hrs VIN MEAD MD Nov 26, 2017 10:41
[2017-11-26 11:00] VITALS: BP 128/84
[2017-11-26] MEDS: ENOXAPARIN 40 MG/0.4 ML SYRINGE. SQ SCH (12:22)
--- NOTE | 2017-11-26 14:59 | PDOC ---
PROGRESS NOTES Chief Complaint Chief Complaint Acute on chronic respiratory failure COPD exacerbation Severe ballous emphysema No PE plan; fu with pulm on vanco, blessingn duoneb, taper steroid cont home meds dc soon History of Present Illness History of Present Illness Pt seen and examined Dw RN on NC 3L, home o2 2-3L Vitals Vitals Vital Signs Date Time Temp Pulse Resp B/P (MAP) Pulse Ox O2 Delivery O2 Flow Rate FiO2 11/26/17 12:28 16 97 Nasal Cannula 2.5 11/26/17 11:00 98.6 80 128/84 (99) 98.6 Physical Exam General: Alert, Oriented X3 Heart: Regular rate, Normal S1 Lungs: Other (bl severe decrased bs , no wheezing or crackles) Abdomen: Normal bowel sounds, Soft Extremities: No clubbing, Other (bl leg 1+ edema) Skin: No rashes, No breakdown Labs LABS Laboratory Tests Test 11/26/17 03:45 White Blood Count 9.0 x10^3/uL (4.0-11.0) Red Blood Count 4.28 x10^6/uL (4.30-5.70) Hemoglobin 13.4 g/dL (13.0-17.5) Hematocrit 38.1 % (39.0-53.0) Mean Corpuscular Volume 89 fL (79-100) Mean Corpuscular Hemoglobin 31 pg (25-35) Mean Corpuscular Hemoglobin Concent 35 g/dL (31-37) Red Cell Distribution Width 14.8 % (11.5-14.5) Platelet Count 126 x10^3/uL (140-400) Neutrophils (%) (Auto) 93 % (31-73) Lymphocytes (%) (Auto) 4 % (24-48) Monocytes (%) (Auto) 3 % (0-9) Eosinophils (%) (Auto) 0 % (0-3) Basophils (%) (Auto) 0 % (0-3) Neutrophils # (Auto) 8.4 x10^3uL (1.8-7.7) Lymphocytes # (Auto) 0.4 x10^3/uL (1.0-4.8) Monocytes # (Auto) 0.2 x10^3/uL (0.0-1.1) Eosinophils # (Auto) 0.0 x10^3/uL (0.0-0.7) Basophils # (Auto) 0.0 x10^3/uL (0.0-0.2) Sodium Level 139 mmol/L (136-145) Potassium Level 4.4 mmol/L (3.5-5.1) Chloride Level 102 mmol/L (98-107) Carbon Dioxide Level 30 mmol/L (21-32) Anion Gap 7 (6-14) Blood Urea Nitrogen 15 mg/dL (8-26) Creatinine 1.2 mg/dL (0.7-1.3) Estimated GFR (Cockcroft-Gault) 75.2 BUN/Creatinine Ratio 13 (6-20) Glucose Level 192 mg/dL (70-99) Calcium Level 9.4 mg/dL (8.5-10.1) Total Bilirubin 0.6 mg/dL (0.2-1.0) Aspartate Amino Transf (AST/SGOT) 15 U/L (15-37) Alanine Aminotransferase (ALT/SGPT) 31 U/L (16-63) Alkaline Phosphatase 68 U/L (46-116) Total Protein 6.2 g/dL (6.4-8.2) Albumin 3.2 g/dL (3.4-5.0) Albumin/Globulin Ratio 1.1 (1.0-1.7) Vancomycin Level Trough 12.5 mcg/mL (10.0-20.0) Vancomycin Last Dose Date Vancomycin Last Dose Time Assessment and Plan Assessmemt and Plan Problems Medical Problems: (1) COPD with exacerbation Status: Acute Comment Review of Relevant I have reviewed the following items franki (where applicable) has been applied. Labs Laboratory Tests Test 11/24/17 16:00 11/25/17 06:05 11/26/17 03:45 Influenza Type A Antigen Negative (NEGATIVE) Influenza Type B Antigen Negative (NEGATIVE) White Blood Count 6.8 x10^3/uL (4.0-11.0) 9.0 x10^3/uL (4.0-11.0) Red Blood Count 4.19 x10^6/uL (4.30-5.70) 4.28 x10^6/uL (4.30-5.70) Hemoglobin 13.0 g/dL (13.0-17.5) 13.4 g/dL (13.0-17.5) Hematocrit 37.7 % (39.0-53.0) 38.1 % (39.0-53.0) Mean Corpuscular Volume 90 fL (79-100) 89 fL (79-100) Mean Corpuscular Hemoglobin 31 pg (25-35) 31 pg (25-35) Mean Corpuscular Hemoglobin Concent 35 g/dL (31-37) 35 g/dL (31-37) Red Cell Distribution Width 14.6 % (11.5-14.5) 14.8 % (11.5-14.5) Platelet Count 124 x10^3/uL (140-400) 126 x10^3/uL (140-400) Neutrophils (%) (Auto) 93 % (31-73) 93 % (31-73) Lymphocytes (%) (Auto) 5 % (24-48) 4 % (24-48) Monocytes (%) (Auto) 3 % (0-9) 3 % (0-9) Eosinophils (%) (Auto) 0 % (0-3) 0 % (0-3) Basophils (%) (Auto) 0 % (0-3) 0 % (0-3) Neutrophils # (Auto) 6.3 x10^3uL (1.8-7.7) 8.4 x10^3uL (1.8-7.7) Lymphocytes # (Auto) 0.3 x10^3/uL (1.0-4.8) 0.4 x10^3/uL (1.0-4.8) Monocytes # (Auto) 0.2 x10^3/uL (0.0-1.1) 0.2 x10^3/uL (0.0-1.1) Eosinophils # (Auto) 0.0 x10^3/uL (0.0-0.7) 0.0 x10^3/uL (0.0-0.7) Basophils # (Auto) 0.0 x10^3/uL (0.0-0.2) 0.0 x10^3/uL (0.0-0.2) Sodium Level 137 mmol/L (136-145) 139 mmol/L (136-145) Potassium Level 4.6 mmol/L (3.5-5.1) 4.4 mmol/L (3.5-5.1) Chloride Level 101 mmol/L (98-107) 102 mmol/L (98-107) Carbon Dioxide Level 30 mmol/L (21-32) 30 mmol/L (21-32) Anion Gap 6 (6-14) 7 (6-14) Blood Urea Nitrogen 13 mg/dL (8-26) 15 mg/dL (8-26) Creatinine 1.1 mg/dL (0.7-1.3) 1.2 mg/dL (0.7-1.3) Estimated GFR (Cockcroft-Gault) 83.2 75.2 BUN/Creatinine Ratio 12 (6-20) 13 (6-20) Glucose Level 146 mg/dL (70-99) 192 mg/dL (70-99) Calcium Level 9.3 mg/dL (8.5-10.1) 9.4 mg/dL (8.5-10.1) Total Bilirubin 0.9 mg/dL (0.2-1.0) 0.6 mg/dL (0.2-1.0) Aspartate Amino Transf (AST/SGOT) 19 U/L (15-37) 15 U/L (15-37) Alanine Aminotransferase (ALT/SGPT) 34 U/L (16-63) 31 U/L (16-63) Alkaline Phosphatase 66 U/L (46-116) 68 U/L (46-116) Total Protein 6.7 g/dL (6.4-8.2) 6.2 g/dL (6.4-8.2) Albumin 3.2 g/dL (3.4-5.0) 3.2 g/dL (3.4-5.0) Albumin/Globulin Ratio 0.9 (1.0-1.7) 1.1 (1.0-1.7) Vancomycin Level Trough 12.5 mcg/mL (10.0-20.0) Vancomycin Last Dose Date Vancomycin Last Dose Time Laboratory Tests Test 11/26/17 03:45 White Blood Count 9.0 x10^3/uL (4.0-11.0) Red Blood Count 4.28 x10^6/uL (4.30-5.70) Hemoglobin 13.4 g/dL (13.0-17.5) Hematocrit 38.1 % (39.0-53.0) Mean Corpuscular Volume 89 fL (79-100) Mean Corpuscular Hemoglobin 31 pg (25-35) Mean Corpuscular Hemoglobin Concent 35 g/dL (31-37) Red Cell Distribution Width 14.8 % (11.5-14.5) Platelet Count 126 x10^3/uL (140-400) Neutrophils (%) (Auto) 93 % (31-73) Lymphocytes (%) (Auto) 4 % (24-48) Monocytes (%) (Auto) 3 % (0-9) Eosinophils (%) (Auto) 0 % (0-3) Basophils (%) (Auto) 0 % (0-3) Neutrophils # (Auto) 8.4 x10^3uL (1.8-7.7) Lymphocytes # (Auto) 0.4 x10^3/uL (1.0-4.8) Monocytes # (Auto) 0.2 x10^3/uL (0.0-1.1) Eosinophils # (Auto) 0.0 x10^3/uL (0.0-0.7) Basophils # (Auto) 0.0 x10^3/uL (0.0-0.2) Sodium Level 139 mmol/L (136-145) Potassium Level 4.4 mmol/L (3.5-5.1) Chloride Level 102 mmol/L (98-107) Carbon Dioxide Level 30 mmol/L (21-32) Anion Gap 7 (6-14) Blood Urea Nitrogen 15 mg/dL (8-26) Creatinine 1.2 mg/dL (0.7-1.3) Estimated GFR (Cockcroft-Gault) 75.2 BUN/Creatinine Ratio 13 (6-20) Glucose Level 192 mg/dL (70-99) Calcium Level 9.4 mg/dL (8.5-10.1) Total Bilirubin 0.6 mg/dL (0.2-1.0) Aspartate Amino Transf (AST/SGOT) 15 U/L (15-37) Alanine Aminotransferase (ALT/SGPT) 31 U/L (16-63) Alkaline Phosphatase 68 U/L (46-116) Total Protein 6.2 g/dL (6.4-8.2) Albumin 3.2 g/dL (3.4-5.0) Albumin/Globulin Ratio 1.1 (1.0-1.7) Vancomycin Level Trough 12.5 mcg/mL (10.0-20.0) Vancomycin Last Dose Date Vancomycin Last Dose Time Medications Current Medications Albuterol/ Ipratropium (Duoneb) 3 ml 1X ONCE NEB Last administered on 05:41; Start 11/24/17 at 06:00; Stop 11/24/17 at 06:01; Status DC Ondansetron HCl (Zofran) 4 mg PRN Q8HRS PRN IV NAUSEA/VOMITING 1ST CHOICE; Start 11/24/17 at 05:45; Stop 11/25/17 at 05:44; Status DC Morphine Sulfate (Morphine Sulfate) 2 mg PRN Q2HR PRN IV SEVERE PAIN Last administered on 11/24/17at 16:02; Start 11/24/17 at 05:45; Stop 11/25/17 at 05 :44; Status DC Albuterol Sulfate (Ventolin Neb Soln) 2.5 mg PRN Q6HRS PRN NEB SHORTNESS OF BREATH Last administered on 11/26/17at 03:29; Start 11/24/17 at 06:00 Albuterol/ Ipratropium (Duoneb) 3 ml RTQID NEB Last administered on 11/26/17at 11:16; Start 11/24/17 at 12:00 Methylprednisolone Sodium Succinate (SOLU-Medrol 40MG VIAL) 40 mg Q12HR IV Last administered on 11/26/17at 09:36; Start 11/24/17 at 09:45; Stop 11/26/17 at 10:42; Status DC Piperacillin Sod/ Tazobactam Sod 3.375 gm/Sodium Chloride 50 ml @ 100 mls/hr Q6HRS IV Last administered on 11/26/17 12:22; Start 11/24/17 at 10:01 Vancomycin HCl (Vanco Per Pharmacy) 1 each PRN DAILY PRN MC SEE COMMENTS Last administered on 11/26/17 05:09; Start 11/24/17 at 09:45 Enoxaparin Sodium (Lovenox 40mg Syringe) 40 mg Q24H SQ Last administered on at 12:22; Start 11/24/17 at 10:00 Pantoprazole Sodium (Protonix) 40 mg DAILYAC PO Last administered on 09:19; Start 11/24/17 at 10:00 Budesonide (Pulmicort) 0.5 mg RTBID NEB Last administered on 11/26/17at 07:53; Start 11/24/17 at 10:00 Vancomycin HCl 2 gm/Sodium Chloride 500 ml @ 250 mls/hr 1X ONCE IV Last administered on 11/24/17at 15:37; Start 11/24/17 at 11:00; Stop 11/24/17 at 12 :59; Status DC Iohexol (Omnipaque 300 Mg/ml) 75 ml 1X ONCE IV Last administered on at 10:30; Start 11/24/17 at 10:30; Stop 11/24/17 at 10:31; Status DC Info (CONTRAST GIVEN -- Rx MONITORING) 1 each PRN DAILY PRN MC SEE COMMENTS; Start 11/24/17 at 10:30; Stop 11/26/17 at 10:29; Status DC Vancomycin HCl 1.25 gm/Sodium Chloride 250 ml @ 167 mls/hr Q12H IV Last administered on 11/26/17at 05:04; Start 11/25/17 at 04:00 Vancomycin HCl (Vancomycin Trough Level) 1 each 1X ONCE MC Last administered on 11/26/17at 03:46; Start 11/26/17 at 03:30; Stop 11/26/17 at 03:31; Status DC Fluticasone Propionate (Flonase) 1 spray PRN DAILY PRN NS Congestion Last administered on 11/26/17 09:23; Start 11/25/17 at 01:15 Furosemide (Lasix) 20 mg 1X ONCE PO Last administered on 11/25/17at 01:15; Start 11/25/17 at 01:30; Stop 11/25/17 at 01:31; Status DC Acetaminophen/ Hydrocodone Bitart (Lortab 5/325) 1 tab PRN Q4HRS PRN PO MODERATE PAIN Last administered on 11/26/17at 12:28; Start 11/25/17 at 07:30 Morphine Sulfate (Morphine Sulfate) 2 mg PRN Q2HR PRN IV SEVERE PAIN; Start at 07:30 Lactobacillus Rhamnosus (Culturelle) 1 cap BID PO Last administered on at 09:21; Start 11/25/17 at 15:00 Aspirin (Ecotrin) 81 mg DAILY PO Last administered on 11/26/17at 09:18; Start 11/26/17 at 09:00 Atorvastatin Calcium (Lipitor) 10 mg HS PO Last administered on 11/25/17at 20: 15; Start 11/25/17 at 21:00 Famotidine (Pepcid) 20 mg DAILY PO Last administered on 11/26/17at 09:17; Start 11/26/17 at 09:00 Furosemide (Lasix) 20 mg DAILY PO Last administered on 11/26/17at 09:20; Start 11/26/17 at 09:00 Lactulose (Lactulose) 20 gm DAILY PO Last administered on 11/26/17at 09:27; Start 11/26/17 at 09:00 Guaifenesin/ Codeine Phosphate (Robitussin Ac) 5 ml PRN Q6HRS PRN PO COUGH Last administered on 11/26/17at 09:22; Start 11/25/17 at 19:30 Pantoprazole Sodium (Protonix) 20 mg DAILYAC PO ; Start 11/26/17 at 07:30 Vitamin B Complex (Folbic Tablet) 1 tab DAILY PO Last administered on at 09:24; Start 11/26/17 at 09:00 Prednisone (Prednisone) 30 mg DAILY PO ; Start 11/27/17 at 09:00 Active Scripts Active Guaifenesin-Codeine Syrup (Guaifenesin/Codeine Phosphate) 118 Ml Liquid 5 Ml PO Q6HRS Furosemide 20 Mg Tablet 1 Tab PO DAILY Lactulose 20 Gm/30 Ml Solution 20 Gm PO DAILY Albuterol Sulfate Neb Soln (Albuterol Sulfate) 2.5 Mg/3 Ml Vial.neb 1 Vial NEB PRN Q4HRS Famotidine 20 Mg Tablet 20 Mg PO DAILY 30 Days Reported Erythromycin (Erythromycin Base) 250 Mg Capsule.dr Unknown Dose PO Protonix (Pantoprazole Sodium) 20 Mg Tablet.dr 1 Tab PO DAILY Prednisone 20 Mg Tablet 10 Mg PO DAILY Flonase Allergy Relief (Fluticasone Propionate) 9.9 Ml [place].susp 2 Sprays NS DAILY Atorvastatin Calcium 10 Mg Tablet 10 Mg PO HS Aspir 81 (Aspirin) 81 Mg Tablet.dr 1 Tab PO DAILY Foltx Tablet (B12/Levomefolate Calcium/B-6) 1 Each Tablet 1 Each PO Symbicort 160-4.5 Mcg Inhaler (Budesonide/Formoterol Fumarate) 10.2 Gm Hfa.aer.ad 2 Puff IH BID Spiriva (Tiotropium [place]) 18 Mcg Cap.w.dev 2 Inh IH DAILY Vitals/I & O Vital Sign - Last 24 Hours 11/25/17 11/25/17 11/25/17 11/25/17 15:40 15:53 16:39 19:00 Temp 98.1 98.1 98.1 98.1 Pulse 81 89 Resp 19 17 B/P (MAP) 118/73 (88) 117/76 (90) Pulse Ox 95 95 94 O2 Delivery Nasal Cannula Nasal Cannula Nasal Cannula Room Air O2 Flow Rate 3.0 3.0 3.0 11/25/17 11/25/17 11/25/17 11/26/17 19:45 20:06 23:00 03:14 Temp 98.2 98.2 Pulse 86 Resp 16 19 B/P (MAP) 123/70 (87) Pulse Ox 95 96 96 O2 Delivery Nasal Cannula Nasal Cannula Nasal Cannula Nasal Cannula O2 Flow Rate 2.0 2.0 3.0 3.0 11/26/17 11/26/17 11/26/17 11/26/17 03:29 03:35 04:30 07:00 Temp 97.7 97.7 97.7 97.7 Pulse 77 75 Resp 18 16 20 B/P (MAP) 117/70 (86) 156/92 (113) Pulse Ox 95 99 99 98 O2 Delivery Nasal Cannula Nasal Cannula Nasal Cannula Nasal Cannula O2 Flow Rate 2.0 3.0 3.0 3.0 11/26/17 11/26/17 11/26/17 11/26/17 07:53 11:00 11:17 12:28 Temp 98.6 98.6 Pulse 80 Resp 17 16 B/P (MAP) 128/84 (99) Pulse Ox 95 95 97 97 O2 Delivery Nasal Cannula Nasal Cannula Nasal Cannula Nasal Cannula O2 Flow Rate 2.0 3.0 2.5 2.5 Intake and Output 11/25/17 11/25/17 11/26/17 15:00 23:00 07:00 Intake Total 3400 ml 670 ml Output Total 2400 ml 1850 ml Balance 1000 ml -1180 ml HERMELINDO RICHARDSON MD Nov 26, 2017 14:59
[2017-11-26 15:48] VITALS: BP 137/91
[2017-11-26 19:40] VITALS: BP 161/86
[2017-11-26] MEDS: ATORVASTATIN CALCIUM 10 MG TABLET. PO SCH (20:29)
[2017-11-26 23:15] VITALS: BP 147/92
[2017-11-27] MEDS: PIPERACILLIN/TAZOBACTAM 3.375 GM in IV NORMAL SALINE 50ML 50 ML IV SCH ×3 (00:20→12:00)
[2017-11-27] MEDS: ALBUTEROL SULFATE 2.5 MG/3 ML NEBU. NEB PRN (00:50)
[2017-11-27] MEDS: HYDROcodone/APAP 5/325MG 1 TAB TABLET PO PRN ×3 (01:12→14:39)
[2017-11-27 03:52] VITALS: BP 143/78
[2017-11-27] MEDS: VANCOMYCIN 1.25 GM in IV NORMAL SALINE 250ML 250 ML IV SCH (04:10)
[2017-11-27 04:18] LABS: BASO % 0 % (0-3); EOS % 0 % (0-3); HEMATOCRIT 39.1 % (39.0-53.0); HEMOGLOBIN 13.3 g/dL (13.0-17.5); LYMPH # 0.4 x10^3/uL (1.0-4.8); LYMPH % 5 % (24-48); MEAN CORPUSCULAR HEMOGLOBIN 31 pg (25-35); MEAN CORPUSCULAR HGB CONC 34 g/dL (31-37); MEAN CORPUSCULAR VOLUME 90 fL (79-100); MONO # 0.5 x10^3/uL (0.0-1.1); MONO % 6 % (0-9); NEUT # 7.8 x10^3uL (1.8-7.7); NEUT % 89 % (31-73); PLATELET COUNT 126 x10^3/uL (140-400); RED BLOOD COUNT 4.33 x10^6/uL (4.30-5.70); RED CELL DISTRIBUTION WIDTH 14.8 % (11.5-14.5); WHITE BLOOD COUNT 8.8 x10^3/uL (4.0-11.0)
[2017-11-27 04:37] LABS: ALBUMIN 3.3 g/dL (3.4-5.0); ALBUMIN/GLOBULIN RATIO 0.9 (1.0-1.7); CALCIUM 9.3 mg/dL (8.5-10.1); CREATININE 1.2 mg/dL (0.7-1.3); GFR 75.2; POTASSIUM 3.9 mmol/L (3.5-5.1); TOTAL BILIRUBIN 0.5 mg/dL (0.2-1.0)
[2017-11-27 07:00] VITALS: BP 120/84
[2017-11-27] MEDS: PANTOPRAZOLE 40 MG TABLET.DR. PO SCH ×2 (07:30→09:29)
[2017-11-27] MEDS: BUDESONIDE 0.5 MG/2 ML NEBU. NEB SCH (07:50)
[2017-11-27] MEDS: IPRATRPIUM/ALBUTEROL 0.5/2.5MG 3 ML NEBU. NEB SCH ×3 (07:50→14:48)
[2017-11-27] MEDS ORDERED: predniSONE 10 MG TABLET PO SCH (09:00)
[2017-11-27] MEDS: FLUTICASONE 50MCG/NASAL SPRAY 16GM BOTTLE. NS PRN (09:26)
[2017-11-27] MEDS: VITAMIN B12,B9,B6 COMPLEX 1 TABLET. PO SCH (09:28)
[2017-11-27] MEDS: LACTOBACILLUS RHAMNOSUS GG 1 CAPSULE. PO SCH (09:28)
[2017-11-27] MEDS: guaiFENesin/CODEINE 100mg/10mg 5 ML LIQUID PO PRN (09:28)
[2017-11-27] MEDS: LACTULOSE 20 GM/30 ML SOLUTION. PO SCH (09:28)
[2017-11-27] MEDS: ASPIRIN ENTERIC COATED 81 MG TABLET.DR. PO SCH (09:28)
[2017-11-27] MEDS: FUROSEMIDE 20 MG TABLET PO SCH (09:29)
[2017-11-27] MEDS: ENOXAPARIN 40 MG/0.4 ML SYRINGE. SQ SCH (09:35)
--- NOTE | 2017-11-27 09:48 | PDOC ---
PULMONARY PROGRESS NOTES Subjective sob better, has cough, no pain Vitals Vital Signs Date Time Temp Pulse Resp B/P (MAP) Pulse Ox O2 Delivery O2 Flow Rate FiO2 11/27/17 09:32 16 Nasal Cannula 3.0 11/27/17 07:51 96 11/27/17 07:00 97.9 73 120/84 (96) 97.9 ROS: No Nausea General: Alert, No acute distress Lungs: Other (bl severe decrased bs , no wheezing or crackles) Cardiovascular: S1, S2 Abdomen: Soft, Non-tender Neuro Exam: Alert Extremities: No Edema, Other Skin: Warm Labs Laboratory Tests Test 11/26/17 03:45 11/27/17 04:10 White Blood Count 9.0 x10^3/uL (4.0-11.0) 8.8 x10^3/uL (4.0-11.0) Red Blood Count 4.28 x10^6/uL (4.30-5.70) 4.33 x10^6/uL (4.30-5.70) Hemoglobin 13.4 g/dL (13.0-17.5) 13.3 g/dL (13.0-17.5) Hematocrit 38.1 % (39.0-53.0) 39.1 % (39.0-53.0) Mean Corpuscular Volume 89 fL (79-100) 90 fL (79-100) Mean Corpuscular Hemoglobin 31 pg (25-35) 31 pg (25-35) Mean Corpuscular Hemoglobin Concent 35 g/dL (31-37) 34 g/dL (31-37) Red Cell Distribution Width 14.8 % (11.5-14.5) 14.8 % (11.5-14.5) Platelet Count 126 x10^3/uL (140-400) 126 x10^3/uL (140-400) Neutrophils (%) (Auto) 93 % (31-73) 89 % (31-73) Lymphocytes (%) (Auto) 4 % (24-48) 5 % (24-48) Monocytes (%) (Auto) 3 % (0-9) 6 % (0-9) Eosinophils (%) (Auto) 0 % (0-3) 0 % (0-3) Basophils (%) (Auto) 0 % (0-3) 0 % (0-3) Neutrophils # (Auto) 8.4 x10^3uL (1.8-7.7) 7.8 x10^3uL (1.8-7.7) Lymphocytes # (Auto) 0.4 x10^3/uL (1.0-4.8) 0.4 x10^3/uL (1.0-4.8) Monocytes # (Auto) 0.2 x10^3/uL (0.0-1.1) 0.5 x10^3/uL (0.0-1.1) Eosinophils # (Auto) 0.0 x10^3/uL (0.0-0.7) 0.0 x10^3/uL (0.0-0.7) Basophils # (Auto) 0.0 x10^3/uL (0.0-0.2) 0.0 x10^3/uL (0.0-0.2) Sodium Level 139 mmol/L (136-145) 140 mmol/L (136-145) Potassium Level 4.4 mmol/L (3.5-5.1) 3.9 mmol/L (3.5-5.1) Chloride Level 102 mmol/L (98-107) 102 mmol/L (98-107) Carbon Dioxide Level 30 mmol/L (21-32) 30 mmol/L (21-32) Anion Gap 7 (6-14) 8 (6-14) Blood Urea Nitrogen 15 mg/dL (8-26) 15 mg/dL (8-26) Creatinine 1.2 mg/dL (0.7-1.3) 1.2 mg/dL (0.7-1.3) Estimated GFR (Cockcroft-Gault) 75.2 75.2 BUN/Creatinine Ratio 13 (6-20) 13 (6-20) Glucose Level 192 mg/dL (70-99) 142 mg/dL (70-99) Calcium Level 9.4 mg/dL (8.5-10.1) 9.3 mg/dL (8.5-10.1) Total Bilirubin 0.6 mg/dL (0.2-1.0) 0.5 mg/dL (0.2-1.0) Aspartate Amino Transf (AST/SGOT) 15 U/L (15-37) 13 U/L (15-37) Alanine Aminotransferase (ALT/SGPT) 31 U/L (16-63) 31 U/L (16-63) Alkaline Phosphatase 68 U/L (46-116) 72 U/L (46-116) Total Protein 6.2 g/dL (6.4-8.2) 7.0 g/dL (6.4-8.2) Albumin 3.2 g/dL (3.4-5.0) 3.3 g/dL (3.4-5.0) Albumin/Globulin Ratio 1.1 (1.0-1.7) 0.9 (1.0-1.7) Vancomycin Level Trough 12.5 mcg/mL (10.0-20.0) Vancomycin Last Dose Date Vancomycin Last Dose Time Laboratory Tests Test 11/27/17 04:10 White Blood Count 8.8 x10^3/uL (4.0-11.0) Red Blood Count 4.33 x10^6/uL (4.30-5.70) Hemoglobin 13.3 g/dL (13.0-17.5) Hematocrit 39.1 % (39.0-53.0) Mean Corpuscular Volume 90 fL (79-100) Mean Corpuscular Hemoglobin 31 pg (25-35) Mean Corpuscular Hemoglobin Concent 34 g/dL (31-37) Red Cell Distribution Width 14.8 % (11.5-14.5) Platelet Count 126 x10^3/uL (140-400) Neutrophils (%) (Auto) 89 % (31-73) Lymphocytes (%) (Auto) 5 % (24-48) Monocytes (%) (Auto) 6 % (0-9) Eosinophils (%) (Auto) 0 % (0-3) Basophils (%) (Auto) 0 % (0-3) Neutrophils # (Auto) 7.8 x10^3uL (1.8-7.7) Lymphocytes # (Auto) 0.4 x10^3/uL (1.0-4.8) Monocytes # (Auto) 0.5 x10^3/uL (0.0-1.1) Eosinophils # (Auto) 0.0 x10^3/uL (0.0-0.7) Basophils # (Auto) 0.0 x10^3/uL (0.0-0.2) Sodium Level 140 mmol/L (136-145) Potassium Level 3.9 mmol/L (3.5-5.1) Chloride Level 102 mmol/L (98-107) Carbon Dioxide Level 30 mmol/L (21-32) Anion Gap 8 (6-14) Blood Urea Nitrogen 15 mg/dL (8-26) Creatinine 1.2 mg/dL (0.7-1.3) Estimated GFR (Cockcroft-Gault) 75.2 BUN/Creatinine Ratio 13 (6-20) Glucose Level 142 mg/dL (70-99) Calcium Level 9.3 mg/dL (8.5-10.1) Total Bilirubin 0.5 mg/dL (0.2-1.0) Aspartate Amino Transf (AST/SGOT) 13 U/L (15-37) Alanine Aminotransferase (ALT/SGPT) 31 U/L (16-63) Alkaline Phosphatase 72 U/L (46-116) Total Protein 7.0 g/dL (6.4-8.2) Albumin 3.3 g/dL (3.4-5.0) Albumin/Globulin Ratio 0.9 (1.0-1.7) Medications Active Scripts Medications Dose Route/Sig Max Daily Dose Days Date Category Erythromycin (Erythromycin Base) 250 Mg Capsule.dr Unknown Dose PO 11/24/17 Reported Protonix (Pantoprazole Sodium) 20 Mg Tablet.dr 1 Tab PO DAILY 11/18/17 Reported Prednisone 20 Mg Tablet 10 Mg PO DAILY 11/18/17 Reported Flonase Allergy Relief (Fluticasone Propionate) 9.9 Ml [place].susp 2 Sprays NS DAILY 11/18/17 Reported Guaifenesin-Codeine Syrup (Guaifenesin/Codeine Phosphate) 118 Ml Liquid 5 Ml PO Q6HRS 10/10/17 Rx Furosemide 20 Mg Tablet 1 Tab PO DAILY 09/10/17 Rx Lactulose 20 Gm/30 Ml Solution 20 Gm PO DAILY 08/25/17 Rx Atorvastatin Calcium 10 Mg Tablet 10 Mg PO HS 08/21/17 Reported Albuterol Sulfate Neb Soln (Albuterol Sulfate) 2.5 Mg/3 Ml Vial.neb 1 Vial NEB PRN Q4HRS 07/10/17 Rx Famotidine 20 Mg Tablet 20 Mg PO DAILY 30 06/14/17 Rx Aspir 81 (Aspirin) 81 Mg Tablet. 1 Tab PO DAILY 06/09/17 Reported Foltx Tablet (B12/Levomefolate Calcium/B-6) 1 Each Tablet 1 Each PO 06/09/17 Reported Symbicort 160-4.5 Mcg Inhaler (Budesonide/Formoterol Fumarate) 10.2 Gm Hfa.aer.ad 2 Puff IH BID 09/21/15 Reported Spiriva (Tiotropium [place]) 18 Mcg Cap.w.dev 2 Inh IH DAILY 09/21/[address] CHEST . There is no CT evidence of pulmonary embolus. 2. There is bilateral lower and right middle lobe bronchitis. Patchy consolidations in the lateral and posterior right lower lobe may be atelectasis or pneumonia. 3. Severe bullous emphysema in the left lung. Impression . 1. Acute on chronic respiratory failure with hypoxemia secondary to acute exacerbation of chronic obstructive pulmonary disease / RLL pneumonia, 2. Abnormal chest x-ray and ct chest 3. Acute exacerbation of chronic obstructive pulmonary disease. 4. RLL pneumonia , best seen on ct chest 5. Ex-smoker. 6. Obesity ?obstructive sleep apnea-hypopnea syndrome. 7. History of congestive heart failure. Plan . 1. Titrate FiO2 to keep O2 saturation 92%. 2. nasal swab for influenza A and B neg. urine legionella and Strep pneumoniae antigen pending. 3. CAN CHANGE TO ABX 4. Taper steroids 5. CT angiogram of the chest, reviewed. 6. Lovenox for DVT prophylaxis. 7. Protonix for stress ulcer prophylaxis. 8. I do recommend a sleep study as an outpatient. 9. Bronchodilator. 10. Inhaled corticosteroid. 11. Continue not smoking. discussed w pt/ AND DR RICHARDSON/ ok with [facility] home today VIN MEAD MD Nov 27, 2017 09:47
[2017-11-27] MEDS ORDERED: LEVO750T31 PO (11:06)
[2017-11-27] MEDS ORDERED: HYDR-2758 PO (11:06)
[2017-11-27] MEDS ORDERED: PRED-220 PO (11:06)
[2017-11-27] MEDS ORDERED: guaiFENesin/CODEINE 100mg/10mg PO (11:08)
[2017-11-27 11:29] VITALS: BP 129/79
--- NOTE | 2017-11-27 13:07 | PDOC3 ---
Discharge Summary [facility] Date of Admission: Nov 24, 2017 Discharge Date: Nov 27, 2017 Admitting Diagnosis Acute on chronic respiratory failure COPD exacerbation Severe ballous emphysema No PE cap Final Diagnosis CONSULTS pulm Brief Hospital Course Mr. Nash is a 57 old M, copd, on home o2 2-4L, came here for cough, with yellow sputum. CTA showed possible RLL PNA and emphysema. pt still coughing, on NC 3L now. mild dizzy. stable to dc home as per pulm. dc home with cough meds, taper steroid, levaquin. dc time 35min. General: Alert, Oriented X3 Heart: Regular rate, Normal S1 Lungs: Other (bl moderate decrased bs , no wheezing or crackles) Abdomen: Normal bowel sounds, Soft Extremities: No clubbing, Other (bl leg 1+ edema) Skin: No rashes, No breakdown Patient History: FH: HTN (hypertension) 33 FATHER 32 MOTHER Family history: Cardiovascular disease (situation) 33 FATHER Tumor 32 MOTHER Unknown Disposition home CONDITION AT DISCHARGE: Improved, Stable Scheduled Albuterol Sulfate (Albuterol Sulfate Neb Soln), 1 VIAL NEB PRN Q4HRS Aspirin (Aspir 81), 1 TAB PO DAILY, (Reported) Atorvastatin Calcium (Atorvastatin Calcium), 10 MG PO HS, (Reported) Budesonide/Formoterol Fumarate (Symbicort 160-4.5 Mcg Inhaler), 2 PUFF IH BID, ( Reported) Fluticasone Propionate (Flonase Allergy Relief), 2 SPRAYS NS DAILY, (Reported) Furosemide (Furosemide), 1 TAB PO DAILY Guaifenesin/Codeine Phosphate (Guaifenesin-Codeine Syrup), 5 ML PO Q6HRS Lactulose (Lactulose), 20 GM PO DAILY Levofloxacin (Levaquin), 750 MG PO DAILY06 Pantoprazole Sodium (Protonix), 1 TAB PO DAILY, (Reported) Prednisone (Prednisone), 10 MG PO DAILY, (Reported) Prednisone (Prednisone ), 30 MG PO DAILY Tiotropium [place] (Spiriva), 2 INH IH DAILY, (Reported) Scheduled PRN Hydrocodone Bit/Acetaminophen (Hydrocodone-Apap 5-325 ), 1 TAB PO PRN Q4HRS PRN for MODERATE PAIN [guaiFENesin/CODEINE 100mg/10mg], 5 ML PO PRN Q6HRS PRN for COUGH Miscellaneous Medications B12/Levomefolate Calcium/B-6 (Foltx Tablet), 1 EACH PO, (Reported) Discontinued Medications Erythromycin Base (Erythromycin), Unknown Dose PO, (Reported) Famotidine (Famotidine), 20 MG PO DAILY HERMELINDO RICHARDSON MD Nov 27, 2017 13:07
== END 2017-11-27 15:00 | disposition home or self-care (01) | DRG 871 ==
LOC: ER 03:27 → 5 SOUTH 06:21
PROVIDERS: ADMIT Internal Medicine; ATTEND Internal Medicine
DX: A41.9 Sepsis, unspecified organism (principal); J96.21 Acute and chronic respiratory failure with hypoxia; J18.9 Pneumonia, unspecified organism; I26.99 Other pulmonary embolism without acute cor pulmonale; J44.0 Chronic obstructive pulmonary disease with (acute) lower respiratory infection; J44.1 Chronic obstructive pulmonary disease with (acute) exacerbation; E66.9 Obesity, unspecified; F17.210 Nicotine dependence, cigarettes, uncomplicated; F41.9 Anxiety disorder, unspecified; G47.33 Obstructive sleep apnea (adult) (pediatric); I50.9 Heart failure, unspecified; I11.0 Hypertensive heart disease with heart failure; I25.2 Old myocardial infarction; Z76.82 Awaiting organ transplant status; Z82.49 Family history of ischemic heart disease and other diseases of the circulatory system; Z82.5 Family history of asthma and other chronic lower respiratory diseases; Z99.81 Dependence on supplemental oxygen
CPT/HCPCS: 36415; 71045; 71275; 80053; 80202; 81001; 84484; 85007; 85025; 87449; 87804; 93005; 94640; 94760; 96365; 96375; J1650; J2270; J2543; J2920; J3370; J7040; J7050; J7512; J7613; J7620; J7626; Q9967; 99285-25; J7030

== ENCOUNTER 2017-12-06 20:51 | Inpatient (IN) | payer MEDICAID ==
[~2017-12-06] VITALS: Ht 180.3 cm; Wt 85.3 kg
[~2017-12-06 20:51] MED LIST changes: +ERYT250C8 PO; +guaiFENesin/CODEINE 100mg/10mg PO
[2017-12-06 21:39] LABS: BASO % 0 % (0-3); EOS % 1 % (0-3); HEMATOCRIT 42.3 % (39.0-53.0); HEMOGLOBIN 14.7 g/dL (13.0-17.5); LYMPH # 0.4 x10^3/uL (1.0-4.8); LYMPH % 5 % (24-48); MEAN CORPUSCULAR HEMOGLOBIN 31 pg (25-35); MEAN CORPUSCULAR HGB CONC 35 g/dL (31-37); MEAN CORPUSCULAR VOLUME 90 fL (79-100); MONO # 0.5 x10^3/uL (0.0-1.1); MONO % 6 % (0-9); NEUT # 7.2 x10^3uL (1.8-7.7); NEUT % 88 % (31-73); PLATELET COUNT 171 x10^3/uL (140-400); RED BLOOD COUNT 4.71 x10^6/uL (4.30-5.70); RED CELL DISTRIBUTION WIDTH 15.1 % (11.5-14.5); WHITE BLOOD COUNT 8.2 x10^3/uL (4.0-11.0)
[2017-12-06 21:48] LABS: CALCIUM 9.5 mg/dL (8.5-10.1); CREATININE 1.3 mg/dL (0.7-1.3); GFR 68.6; POTASSIUM 3.5 mmol/L (3.5-5.1); PROTHROMBIN TIME PATIENT 12.3 SEC (11.7-14.0)
[2017-12-06 21:53] LABS: D-DIMER 0.73 ug/mlFEU (0.00-0.50)
[2017-12-06] MEDS ORDERED: IPRATRPIUM/ALBUTEROL 0.5/2.5MG 3 ML NEBU. NEB ONE (22:00)
[2017-12-06 22:06] LABS: % LYMPHS 4 % (24-48); % MONOS 7 % (0-10); % SEGS 89 % (35-66); PLT ESTIMATE ADEQUATE (ADEQUATE)
[2017-12-06] MEDS ORDERED: fentaNYL PF VIAL 100 MCG/2 ML VIAL IV ONE (22:30)
[2017-12-06] MEDS ORDERED: ALBUTEROL SULFATE 2.5 MG/3 ML NEBU. NEB ONE (22:30)
[2017-12-06] MEDS ORDERED: IV NORMAL SALINE 1000ML BAG 1,000 ML IV ONE (23:00)
[2017-12-06] MEDS ORDERED: ACETAMINOPHEN 500 MG TABLET PO ONE (23:00)
--- NOTE | 2017-12-06 23:00 | PHYS DOC ---
Past Medical History Past Medical History: Bronchitis, CHF, COPD, Lung Disease Additional Past Medical Histor: EMPHYSEMA-on 3 L NC Past Surgical History: Other Additional Past Surgical Histo: INGUINAL HERNIA REPAIR X2 Alcohol Use: None Drug Use: None Adult General Chief Complaint Chief Complaint: SHORTNESS OF BREATH HPI HPI Patient is a 57 year old male who presents with dyspnea. He is known to have COPD. He endorses worsening cough and sputum. Production over the last 48 hours. He denies chest pain. Patient came by ambulance and was given albuterol and route. He has no lower extremity edema. No orthopnea. Patient has been using medications at home but his symptoms continue to worsen. Patient does use 2-3 L per nasal cannula at home at baseline. Review of Systems Review of Systems Constitutional: Denies fever Eyes: Denies change in visual acuity HENT: Denies nasal congestion or sore throat Respiratory: as documented above Cardiovascular: No additional information not addressed in HPI GI: Denies abdominal pain : Denies dysuria Musculoskeletal: Denies back pain Integument: Denies rash or skin lesions Neurologic: Denies headache Endocrine: Denies polyuria All other systems were reviewed and found to be within normal limits, except as documented in this note. Current Medications Current Medications Current Medications Medications (Trade) Dose Ordered Sig/Candy Start Time Stop Time Status Last Admin Dose Admin Albuterol Sulfate (Ventolin Neb Soln) 2.5 mg 1X ONCE 12/06/17 22:30 12/06/17 22:31 DC Albuterol/ Ipratropium (Duoneb) 3 ml 1X ONCE 12/06/17 22:00 12/06/17 22:01 DC 12/06/17 21:48 3 ML Fentanyl Citrate (Fentanyl 2ml Vial) 75 mcg 1X ONCE 12/06/17 22:30 12/06/17 22:31 DC 12/06/17 22:57 75 MCG Allergies Allergies Allergies Coded Allergies Type Severity Reaction Last Updated Verified No Known Drug Allergies 10/13/17 No Physical Exam Physical Exam Constitutional: Well developed, well nourished, no acute distress, non-toxic appearance HENT: Normocephalic, atraumatic, bilateral external ears normal, oropharynx moist Eyes: PERRLA, EOMI, conjunctiva normal Neck: Normal range of motion, no tenderness Cardiovascular:Heart rate regular rhythm Lungs & Thorax: Diminished airflow bilaterally with a long expiratory phase and wheezes in all lira. Mild increased work of breathing. Abdomen: Bowel sounds normal, soft Skin: Warm, dry, no erythema Back: No tenderness Extremities: No tenderness, no edema Neurologic: Alert and oriented X 3 Psychologic: Affect normal Current Patient Data Vital Signs Vital Signs Date Time Temp Pulse Resp B/P (MAP) Pulse Ox O2 Delivery O2 Flow Rate FiO2 12/06/17 21:59 93 Nasal Cannula 2.0 12/06/17 20:52 101.5 130 28 121/78 (92) 101.5 Lab Values Laboratory Tests Test 12/06/17 21:25 White Blood Count 8.2 x10^3/uL (4.0-11.0) Red Blood Count 4.71 x10^6/uL (4.30-5.70) Hemoglobin 14.7 g/dL (13.0-17.5) Hematocrit 42.3 % (39.0-53.0) Mean Corpuscular Volume 90 fL (79-100) Mean Corpuscular Hemoglobin 31 pg (25-35) Mean Corpuscular Hemoglobin Concent 35 g/dL (31-37) Red Cell Distribution Width 15.1 % (11.5-14.5) H Platelet Count 171 x10^3/uL (140-400) Neutrophils (%) (Auto) 88 % (31-73) H Lymphocytes (%) (Auto) 5 % (24-48) L Monocytes (%) (Auto) 6 % (0-9) Eosinophils (%) (Auto) 1 % (0-3) Basophils (%) (Auto) 0 % (0-3) Neutrophils # (Auto) 7.2 x10^3uL (1.8-7.7) Lymphocytes # (Auto) 0.4 x10^3/uL (1.0-4.8) L Monocytes # (Auto) 0.5 x10^3/uL (0.0-1.1) Eosinophils # (Auto) 0.0 x10^3/uL (0.0-0.7) Basophils # (Auto) 0.0 x10^3/uL (0.0-0.2) Segmented Neutrophils % 89 % (35-66) H Lymphocytes % 4 % (24-48) L Monocytes % 7 % (0-10) Platelet Estimate Adequate (ADEQUATE) Prothrombin Time 12.3 SEC (11.7-14.0) Prothrombin Time INR 1.0 (0.8-1.1) PTT 25 SEC (24-38) D-Dimer (Almita) 0.73 ug/mlFEU (0.00-0.50) H Sodium Level 132 mmol/L (136-145) L Potassium Level 3.5 mmol/L (3.5-5.1) Chloride Level 95 mmol/L (98-107) L Carbon Dioxide Level 34 mmol/L (21-32) H Anion Gap 3 (6-14) L Blood Urea Nitrogen 16 mg/dL (8-26) Creatinine 1.3 mg/dL (0.7-1.3) Estimated GFR (Cockcroft-Gault) 68.6 Glucose Level 92 mg/dL (70-99) Calcium Level 9.5 mg/dL (8.5-10.1) Troponin I Quantitative 0.028 ng/mL (0.000-0.055) KX-Tpj-U-Type Natriuretic Peptide 61 pg/mL (0-124) Laboratory Tests 12/06/17 21:25 Laboratory Tests 12/06/17 21:25 EKG EKG Sinus Tachy Interpretation Time: 21:10 Radiology/Procedures Radiology/Procedures CXR Course & Med Decision Making Course & Med Decision Making Pertinent Labs and Imaging studies reviewed. (See chart for details) Patient is seen and examined for dyspnea and COPD exacerbation. He is noted to be febrile on arrival and received albuterol neb en route to the hospital. He does have tachycardia but no chest pain. Dimer was done and is elevated. Consideration is given for CT angiography but patient just underwent a study about 10 days earlier. There is low suspicion for pulmonary embolus and the patient has multiple reasons for her tachycardia. Given his fever and COPD exacerbation, patient is admitted. Possibly has pneumonia on chest x-ray. Rocephin and azithromycin are started. Patient is agreeable to the plan of care. Trop is not elevated. EKG non-acute. Dragon Disclaimer Dragon Disclaimer This electronic medical record was generated, in whole or in part, using a voice recognition dictation system. Departure Departure Referrals: UNKNOWN PCP NAME (PCP) ACE BARRY DO Dec 06, 2017 23:00
[2017-12-06] MEDS ORDERED: ACETAMINOPHEN 500 MG TABLET PO PRN (23:15)
[2017-12-06] MEDS ORDERED: ONDANSETRON PF 4 MG/2 ML VIAL. IV PRN (23:15)
[2017-12-06] MEDS ORDERED: fentaNYL PF VIAL 100 MCG/2 ML VIAL IV PRN (23:15)
[2017-12-06] MEDS ORDERED: AZITHRMYCN 500MG IVPB FOR OMNI 250 ML IV ONE (23:30)
[2017-12-06] MEDS ORDERED: methylPREDNISolone SOD SUCC PF 125 MG/2 ML VIAL. IV ONE (23:30)
--- NOTE | 2017-12-06 23:30 | RAD ---
Indication:Chest pain and short of breath TECHNIQUE:Portable AP chest X-ray COMPARISON:11/24/2017 FINDINGS: Heart is normal in size. Large bulla seen in the left lung. No pneumothorax or effusion. Mild bibasilar reticular opacities, nonspecific. Visualized bony thorax within normal limits. IMPRESSION: 1. No acute pulmonary process. 2. Stable Large left upper lobe bulla. Electronically signed by: Luke Yoo DO (12/06/2017 11:27 PM) [facility]
[2017-12-07] VITALS (7 sets, daily range): BP systolic 103–118; BP diastolic 52–78
[2017-12-07] MEDS: ALBUTEROL SULFATE 2.5 MG/3 ML NEBU. NEB SCH ×5 (02:15→12:00)
[2017-12-07 04:57] LABS: BASO % 0 % (0-3); EOS % 0 % (0-3); HEMATOCRIT 36.8 % (39.0-53.0); HEMOGLOBIN 12.7 g/dL (13.0-17.5); LYMPH # 0.2 x10^3/uL (1.0-4.8); LYMPH % 3 % (24-48); MEAN CORPUSCULAR HEMOGLOBIN 31 pg (25-35); MEAN CORPUSCULAR HGB CONC 35 g/dL (31-37); MEAN CORPUSCULAR VOLUME 90 fL (79-100); MONO # 0.1 x10^3/uL (0.0-1.1); MONO % 2 % (0-9); NEUT # 7.8 x10^3uL (1.8-7.7); NEUT % 96 % (31-73); PLATELET COUNT 151 x10^3/uL (140-400); RED BLOOD COUNT 4.09 x10^6/uL (4.30-5.70); RED CELL DISTRIBUTION WIDTH 14.6 % (11.5-14.5); WHITE BLOOD COUNT 8.2 x10^3/uL (4.0-11.0)
[2017-12-07 05:25] LABS: CALCIUM 8.5 mg/dL (8.5-10.1); CREATININE 1.2 mg/dL (0.7-1.3); GFR 75.2; POTASSIUM 4.2 mmol/L (3.5-5.1)
--- NOTE | 2017-12-07 07:18 | EKG ---
[facility] [address] [place] [address] Test Date: 2017-12-06 Test Time: 21:05:35 Pat Name: KAYLA JONES Department: Room: 8 1 Gender: M [employer]: : 1960 Requested By: ACE BARRY Order Number: [id number] Reading MD: Luis Manuel Thornton MD Measurements Intervals [place] Rate: 127 P: 61 UT: 152 QRS: 5 QRSD: 84 T: 54 QT: 286 QTc: 420 Interpretive Statements SINUS TACHYCARDIA ATRIAL PREMATURE COMPLEX(ES) NON-SPECIFIC ST/T CHANGES Electronically Signed On 12-10-2017 11:07:52 CDT by Luis Manuel Thornton MD
[2017-12-07] MEDS ORDERED: ONDANSETRON PF 4 MG/2 ML VIAL. IV PRN (09:45)
[2017-12-07] MEDS ORDERED: guaiFENesin DM 200MG/20MG 10 ML SYRUP PO PRN (09:45)
[2017-12-07] MEDS: FLUTICASONE 50MCG/NASAL SPRAY 16GM BOTTLE. NS SCH (11:00)
--- NOTE | 2017-12-07 12:19 | PDOC1 ---
History and Physical Date of Admission Date of Admission DATE: 12/07/17 TIME: 12:15 Identification/Chief Complaint Chief Complaint SOA, yellow phlegm Source Source: Caregiver, Chart review, Patient History of Present Illness History of Present Illness 57-year-old -Macedonian male known to me, this is his third admission for this month for same problems. He is COPD with known large left upper bullae. He is known to us, chronic home O2 2-4 L nasal cannula, coming in because of another COPD exacerbation. Known to pulmonary service. Chest x-ray is negative for acute consolidation. Denies fever. Claims new yellowish phlegm which is new to him. Breathing better after ER mx. Chronically on steroids at home prednisone unknown dose. Looking at home meds should be either 30 or 50 mg once a day. Very minimal breath sounds, no wheezing appreciable, very diminished but no crackles. No leg edema. Not smoking anymore Past Medical History Cardiovascular: CHF, HTN, Hyperlipidemia, Pulmonary hypertension Pulmonary: COPD, Pneumonia CENTRAL NERVOUS SYSTEM: Other GI: Other Heme/Onc: No pertinent hx Hepatobiliary: Hep A/B/C Psych: No pertinent hx Musculoskeletal: low back pain, Osteoarthritis Rheumatologic: No pertinent hx Infectious disease: No pertinent hx Renal/: No pertinent hx Endocrine: No pertinent hx Past Surgical History Past Surgical History: Hernia Repair Family History Family History: Heart Disease Social History Smoke: Quit ALCOHOL: none Drugs: None Current Problem List Problem List Problems Medical Problems: (1) COPD with exacerbation Status: Acute Current Medications Current Medications Current Medications Albuterol/ Ipratropium (Duoneb) 3 ml 1X ONCE NEB Last administered on at 21:48; Start 12/06/17 at 22:00; Stop 12/06/17 at 22:01; Status DC Albuterol Sulfate (Ventolin Neb Soln) 2.5 mg 1X ONCE NEB ; Start 12/06/17 at 22:30; Stop 12/06/17 at 22:31; Status DC Fentanyl Citrate (Fentanyl 2ml Vial) 75 mcg 1X ONCE IV Last administered on at 22:57; Start 12/06/17 at 22:30; Stop 12/06/17 at 22:31; Status DC Acetaminophen (Tylenol) 1,000 mg 1X ONCE PO Last administered on 12/06/17at 22 :57; Start 12/06/17 at 23:00; Stop 12/06/17 at 23:01; Status DC Sodium Chloride 1,000 ml @ 1,000 mls/hr 1X ONCE IV Last administered on 12/06at 22:56; Start 12/06/17 at 23:00; Stop 12/06/17 at 23:59; Status DC Ceftriaxone Sodium 50 ml @ 100 mls/hr 1X ONCE IV Last administered on at 22:56; Start 12/06/17 at 23:00; Stop 12/06/17 at 23:29; Status DC Azithromycin 250 ml @ 250 mls/hr 1X ONCE IV Last administered on 12/07/17at 00:09; Start 12/06/17 at 23:30; Stop 12/07/17 at 00:29; Status DC Ondansetron HCl (Zofran) 4 mg PRN Q8HRS PRN IV NAUSEA/VOMITING 1ST CHOICE; Start 12/06/17 at 23:15; Stop 12/07/17 at 09:38; Status DC Fentanyl Citrate (Fentanyl 2ml Vial) 50 mcg PRN Q1HR PRN IV SEVERE PAIN Last administered on 12/07/17at 10:01; Start 12/06/17 at 23:15; Stop 12/07/17 at 23 :14 Acetaminophen (Tylenol) 1,000 mg PRN Q6HRS PRN PO FEVER; Start 12/06/17 at 23: 15 Albuterol Sulfate (Ventolin Neb Soln) 2.5 mg Q3HRS NEB Last administered on at 07:57; Start 12/07/17 at 00:00 Methylprednisolone Sodium Succinate (SOLU-Medrol 125MG VIAL) 125 mg 1X ONCE IV Last administered on 12/07/17at 00:08; Start 12/06/17 at 23:30; Stop at 23:31; Status DC Ondansetron HCl (Zofran) 4 mg PRN Q6HRS PRN IV NAUSEA/VOMITING 1ST CHOICE; Start 12/07/17 at 09:45 Benzonatate (Tessalon Perle) 100 mg [id number] PO ; Start 12/07/17 at 14:00 Guaifenesin (Robitussin Dm) 10 ml PRN Q6HRS PRN PO COUGH; Start 12/07/17 at 09 :45 Aspirin (Ecotrin) 81 mg DAILY PO ; Start 12/07/17 at 11:00 Atorvastatin Calcium (Lipitor) 10 mg HS PO ; Start 12/07/17 at 21:00 Furosemide (Lasix) 20 mg DAILY PO ; Start 12/07/17 at 11:00 Acetaminophen/ Hydrocodone Bitart (Lortab 5/325) 1 tab PRN Q4HRS PRN PO MODERATE PAIN; Start 12/07/17 at 09:45 Lactulose (Lactulose) 20 gm DAILY PO ; Start 12/07/17 at 11:00 Fluticasone Propionate (Flonase) 2 spray DAILY NS ; Start 12/07/17 at 11:00 Guaifenesin/ Codeine Phosphate (Robitussin Ac) 5 ml Q6HRS PO ; Start 12/07/17 at 12:00 Pantoprazole Sodium (Protonix) 40 mg DAILYAC PO ; Start 12/07/17 at 11:00 Non-Formulary Medication (Tiotropium [place] (Spiriva)) 2 inh DAILY IH ; Start 12/08/17 at 09:00; Status UNV Albuterol/ Ipratropium (Duoneb) 3 ml RTQID NEB ; Start 12/07/17 at 12:00 Active Scripts Active [guaiFENesin/CODEINE 100mg/10mg] 5 ML Liquid 5 Ml PO PRN Q6HRS PRN Prednisone (Prednisone) 10 Mg Tablet 30 Mg PO DAILY Hydrocodone-Apap 5-325 (Hydrocodone Bit/Acetaminophen) 1 Each Tablet 1 Tab PO PRN Q4HRS PRN Levaquin (Levofloxacin) 750 Mg Tablet 750 Mg PO DAILY06 7 Days Guaifenesin-Codeine Syrup (Guaifenesin/Codeine Phosphate) 118 Ml Liquid 5 Ml PO Q6HRS Furosemide 20 Mg Tablet 1 Tab PO DAILY Lactulose 20 Gm/30 Ml Solution 20 Gm PO DAILY Albuterol Sulfate Neb Soln (Albuterol Sulfate) 2.5 Mg/3 Ml Vial.neb 1 Vial NEB PRN Q4HRS Reported Protonix (Pantoprazole Sodium) 20 Mg Tablet.dr 1 Tab PO DAILY Prednisone 20 Mg Tablet 10 Mg PO DAILY Flonase Allergy Relief (Fluticasone Propionate) 9.9 Ml Tuttle.susp 2 Sprays NS DAILY Atorvastatin Calcium 10 Mg Tablet 10 Mg PO HS Aspir 81 (Aspirin) 81 Mg Tablet. 1 Tab PO DAILY Foltx Tablet (B12/Levomefolate Calcium/B-6) 1 Each Tablet 1 Each PO Symbicort 160-4.5 Mcg Inhaler (Budesonide/Formoterol Fumarate) 10.2 Gm Hfa.aer.ad 2 Puff IH BID Spiriva (Tiotropium [place]) 18 Mcg Cap.w.dev 2 Inh IH DAILY Allergies Allergies: Coded Allergies: No Known Drug Allergies (Unverified , 10/13/17) ROS Review of System Asper history of present illness, the rest of ROS 14 point negative Physical Exam HEENT: Atraumatic, PERRLA Lungs: Normal air movement, Other (symmetrical chest expansion but very diminished, no wheezing, no crackles) Heart: S1S2, RRR, no thrills, no rubs Cardiovascular: S1, S2 Abdomen: Normal bowel sounds, Soft, No tenderness, No hepatosplenomegaly, No masses Male Genitals Exam: normal genitalia, normal prostate Extremities: No clubbing, No cyanosis, No edema, Normal pulses Skin: No breakdown, No significant lesion, Other (very dry skin) Neuro: Normal gait, Normal speech, Strength at 5/5 X4 ext, Normal tone, Sensation intact, Cranial nerves 3-12 NL, Reflexes 2+ Psych/Mental Status: Mental status NL, Mood NL Vitals Vitals Vital Signs Date Time Temp Pulse Resp B/P (MAP) Pulse Ox O2 Delivery O2 Flow Rate FiO2 12/07/17 11:00 97.7 95 20 118/70 (86) 97 Nasal Cannula 3.0 97.7 Labs Labs Laboratory Tests Test 12/06/17 21:25 12/07/17 03:40 White Blood Count 8.2 x10^3/uL (4.0-11.0) 8.2 x10^3/uL (4.0-11.0) Red Blood Count 4.71 x10^6/uL (4.30-5.70) 4.09 x10^6/uL (4.30-5.70) Hemoglobin 14.7 g/dL (13.0-17.5) 12.7 g/dL (13.0-17.5) Hematocrit 42.3 % (39.0-53.0) 36.8 % (39.0-53.0) Mean Corpuscular Volume 90 fL (79-100) 90 fL (79-100) Mean Corpuscular Hemoglobin 31 pg (25-35) 31 pg (25-35) Mean Corpuscular Hemoglobin Concent 35 g/dL (31-37) 35 g/dL (31-37) Red Cell Distribution Width 15.1 % (11.5-14.5) 14.6 % (11.5-14.5) Platelet Count 171 x10^3/uL (140-400) 151 x10^3/uL (140-400) Neutrophils (%) (Auto) 88 % (31-73) 96 % (31-73) Lymphocytes (%) (Auto) 5 % (24-48) 3 % (24-48) Monocytes (%) (Auto) 6 % (0-9) 2 % (0-9) Eosinophils (%) (Auto) 1 % (0-3) 0 % (0-3) Basophils (%) (Auto) 0 % (0-3) 0 % (0-3) Neutrophils # (Auto) 7.2 x10^3uL (1.8-7.7) 7.8 x10^3uL (1.8-7.7) Lymphocytes # (Auto) 0.4 x10^3/uL (1.0-4.8) 0.2 x10^3/uL (1.0-4.8) Monocytes # (Auto) 0.5 x10^3/uL (0.0-1.1) 0.1 x10^3/uL (0.0-1.1) Eosinophils # (Auto) 0.0 x10^3/uL (0.0-0.7) 0.0 x10^3/uL (0.0-0.7) Basophils # (Auto) 0.0 x10^3/uL (0.0-0.2) 0.0 x10^3/uL (0.0-0.2) Segmented Neutrophils % 89 % (35-66) Lymphocytes % 4 % (24-48) Monocytes % 7 % (0-10) Platelet Estimate Adequate (ADEQUATE) Prothrombin Time 12.3 SEC (11.7-14.0) Prothromb Time International Ratio 1.0 (0.8-1.1) Activated Partial Thromboplast Time 25 SEC (24-38) D-Dimer (Almita) 0.73 ug/mlFEU (0.00-0.50) Sodium Level 132 mmol/L (136-145) 136 mmol/L (136-145) Potassium Level 3.5 mmol/L (3.5-5.1) 4.2 mmol/L (3.5-5.1) Chloride Level 95 mmol/L (98-107) 99 mmol/L (98-107) Carbon Dioxide Level 34 mmol/L (21-32) 30 mmol/L (21-32) Anion Gap 3 (6-14) 7 (6-14) Blood Urea Nitrogen 16 mg/dL (8-26) 14 mg/dL (8-26) Creatinine 1.3 mg/dL (0.7-1.3) 1.2 mg/dL (0.7-1.3) Estimated GFR (Cockcroft-Gault) 68.6 75.2 Glucose Level 92 mg/dL (70-99) 194 mg/dL (70-99) Calcium Level 9.5 mg/dL (8.5-10.1) 8.5 mg/dL (8.5-10.1) Troponin I Quantitative 0.028 ng/mL (0.000-0.055) QV-Djn-T-Type Natriuretic Peptide 61 pg/mL (0-124) Procalcitonin 0.17 ng/mL (0.00-0.10) Laboratory Tests Test 12/06/17 21:25 12/07/17 03:40 White Blood Count 8.2 x10^3/uL (4.0-11.0) 8.2 x10^3/uL (4.0-11.0) Red Blood Count 4.71 x10^6/uL (4.30-5.70) 4.09 x10^6/uL (4.30-5.70) Hemoglobin 14.7 g/dL (13.0-17.5) 12.7 g/dL (13.0-17.5) Hematocrit 42.3 % (39.0-53.0) 36.8 % (39.0-53.0) Mean Corpuscular Volume 90 fL (79-100) 90 fL (79-100) Mean Corpuscular Hemoglobin 31 pg (25-35) 31 pg (25-35) Mean Corpuscular Hemoglobin Concent 35 g/dL (31-37) 35 g/dL (31-37) Red Cell Distribution Width 15.1 % (11.5-14.5) 14.6 % (11.5-14.5) Platelet Count 171 x10^3/uL (140-400) 151 x10^3/uL (140-400) Neutrophils (%) (Auto) 88 % (31-73) 96 % (31-73) Lymphocytes (%) (Auto) 5 % (24-48) 3 % (24-48) Monocytes (%) (Auto) 6 % (0-9) 2 % (0-9) Eosinophils (%) (Auto) 1 % (0-3) 0 % (0-3) Basophils (%) (Auto) 0 % (0-3) 0 % (0-3) Neutrophils # (Auto) 7.2 x10^3uL (1.8-7.7) 7.8 x10^3uL (1.8-7.7) Lymphocytes # (Auto) 0.4 x10^3/uL (1.0-4.8) 0.2 x10^3/uL (1.0-4.8) Monocytes # (Auto) 0.5 x10^3/uL (0.0-1.1) 0.1 x10^3/uL (0.0-1.1) Eosinophils # (Auto) 0.0 x10^3/uL (0.0-0.7) 0.0 x10^3/uL (0.0-0.7) Basophils # (Auto) 0.0 x10^3/uL (0.0-0.2) 0.0 x10^3/uL (0.0-0.2) Segmented Neutrophils % 89 % (35-66) Lymphocytes % 4 % (24-48) Monocytes % 7 % (0-10) Platelet Estimate Adequate (ADEQUATE) Prothrombin Time 12.3 SEC (11.7-14.0) Prothromb Time International Ratio 1.0 (0.8-1.1) Activated Partial Thromboplast Time 25 SEC (24-38) D-Dimer (Almita) 0.73 ug/mlFEU (0.00-0.50) Sodium Level 132 mmol/L (136-145) 136 mmol/L (136-145) Potassium Level 3.5 mmol/L (3.5-5.1) 4.2 mmol/L (3.5-5.1) Chloride Level 95 mmol/L (98-107) 99 mmol/L (98-107) Carbon Dioxide Level 34 mmol/L (21-32) 30 mmol/L (21-32) Anion Gap 3 (6-14) 7 (6-14) Blood Urea Nitrogen 16 mg/dL (8-26) 14 mg/dL (8-26) Creatinine 1.3 mg/dL (0.7-1.3) 1.2 mg/dL (0.7-1.3) Estimated GFR (Cockcroft-Gault) 68.6 75.2 Glucose Level 92 mg/dL (70-99) 194 mg/dL (70-99) Calcium Level 9.5 mg/dL (8.5-10.1) 8.5 mg/dL (8.5-10.1) Troponin I Quantitative 0.028 ng/mL (0.000-0.055) JU-Wdf-P-Type Natriuretic Peptide 61 pg/mL (0-124) Procalcitonin 0.17 ng/mL (0.00-0.10) VTE Prophylaxis Ordered VTE Prophylaxis Devices: Yes VTE Pharmacological Prophylaxi: Yes Assessment/Plan Assessment/Plan COPD flare Known large left upper lobe bullae NO PNA on CXR Acute bronchitis Chronic O2 [id number] L nasal cannula 24 7 Hypertension, CHF, chronic stable PLAN: Add pulmonary consult Cough medicine Resume home medications especially chronic prednisone by mouth PT/OT Dw him 2 MN admit RAI DURANT MD Dec 07, 2017 12:19
[2017-12-07] MEDS: IPRATRPIUM/ALBUTEROL 0.5/2.5MG 3 ML NEBU. NEB SCH ×3 (12:22→21:01)
[2017-12-07] MEDS: PANTOPRAZOLE 40 MG TABLET.DR. PO SCH (14:34)
[2017-12-07] MEDS: guaiFENesin/CODEINE 100mg/10mg 5 ML LIQUID PO SCH ×2 (14:34→17:21)
[2017-12-07] MEDS: BENZONATATE 100 MG CAPSULE. PO SCH ×2 (14:34→19:56)
[2017-12-07] MEDS: FUROSEMIDE 20 MG TABLET PO SCH (14:35)
[2017-12-07] MEDS: ASPIRIN ENTERIC COATED 81 MG TABLET.DR. PO SCH (14:35)
[2017-12-07] MEDS: LACTULOSE 20 GM/30 ML SOLUTION. PO SCH (14:35)
[2017-12-07] MEDS: predniSONE 20 MG TABLET PO SCH (14:40)
[2017-12-07] MEDS: HYDROcodone/APAP 5/325MG 1 TAB TABLET PO PRN (17:23)
--- NOTE | 2017-12-07 18:09 | PDOC ---
PULMONARY PROGRESS NOTES Vitals Vital Signs Date Time Temp Pulse Resp B/P (MAP) Pulse Ox O2 Delivery O2 Flow Rate FiO2 12/07/17 17:23 96 Nasal Cannula 2.0 12/07/17 15:00 97.9 90 18 117/78 (91) 97.9 General: Alert, No acute distress Lungs: Other Cardiovascular: S1, S2 Abdomen: Soft, Non-tender Extremities: No Edema, Other Labs Laboratory Tests Test 12/06/17 21:25 12/07/17 03:40 White Blood Count 8.2 x10^3/uL (4.0-11.0) 8.2 x10^3/uL (4.0-11.0) Red Blood Count 4.71 x10^6/uL (4.30-5.70) 4.09 x10^6/uL (4.30-5.70) Hemoglobin 14.7 g/dL (13.0-17.5) 12.7 g/dL (13.0-17.5) Hematocrit 42.3 % (39.0-53.0) 36.8 % (39.0-53.0) Mean Corpuscular Volume 90 fL (79-100) 90 fL (79-100) Mean Corpuscular Hemoglobin 31 pg (25-35) 31 pg (25-35) Mean Corpuscular Hemoglobin Concent 35 g/dL (31-37) 35 g/dL (31-37) Red Cell Distribution Width 15.1 % (11.5-14.5) 14.6 % (11.5-14.5) Platelet Count 171 x10^3/uL (140-400) 151 x10^3/uL (140-400) Neutrophils (%) (Auto) 88 % (31-73) 96 % (31-73) Lymphocytes (%) (Auto) 5 % (24-48) 3 % (24-48) Monocytes (%) (Auto) 6 % (0-9) 2 % (0-9) Eosinophils (%) (Auto) 1 % (0-3) 0 % (0-3) Basophils (%) (Auto) 0 % (0-3) 0 % (0-3) Neutrophils # (Auto) 7.2 x10^3uL (1.8-7.7) 7.8 x10^3uL (1.8-7.7) Lymphocytes # (Auto) 0.4 x10^3/uL (1.0-4.8) 0.2 x10^3/uL (1.0-4.8) Monocytes # (Auto) 0.5 x10^3/uL (0.0-1.1) 0.1 x10^3/uL (0.0-1.1) Eosinophils # (Auto) 0.0 x10^3/uL (0.0-0.7) 0.0 x10^3/uL (0.0-0.7) Basophils # (Auto) 0.0 x10^3/uL (0.0-0.2) 0.0 x10^3/uL (0.0-0.2) Segmented Neutrophils % 89 % (35-66) Lymphocytes % 4 % (24-48) Monocytes % 7 % (0-10) Platelet Estimate Adequate (ADEQUATE) Prothrombin Time 12.3 SEC (11.7-14.0) Prothromb Time International Ratio 1.0 (0.8-1.1) Activated Partial Thromboplast Time 25 SEC (24-38) D-Dimer (Almita) 0.73 ug/mlFEU (0.00-0.50) Sodium Level 132 mmol/L (136-145) 136 mmol/L (136-145) Potassium Level 3.5 mmol/L (3.5-5.1) 4.2 mmol/L (3.5-5.1) Chloride Level 95 mmol/L (98-107) 99 mmol/L (98-107) Carbon Dioxide Level 34 mmol/L (21-32) 30 mmol/L (21-32) Anion Gap 3 (6-14) 7 (6-14) Blood Urea Nitrogen 16 mg/dL (8-26) 14 mg/dL (8-26) Creatinine 1.3 mg/dL (0.7-1.3) 1.2 mg/dL (0.7-1.3) Estimated GFR (Cockcroft-Gault) 68.6 75.2 Glucose Level 92 mg/dL (70-99) 194 mg/dL (70-99) Calcium Level 9.5 mg/dL (8.5-10.1) 8.5 mg/dL (8.5-10.1) Troponin I Quantitative 0.028 ng/mL (0.000-0.055) EH-Ozp-E-Type Natriuretic Peptide 61 pg/mL (0-124) Procalcitonin 0.17 ng/mL (0.00-0.10) Laboratory Tests Test 12/06/17 21:25 12/07/17 03:40 White Blood Count 8.2 x10^3/uL (4.0-11.0) 8.2 x10^3/uL (4.0-11.0) Red Blood Count 4.71 x10^6/uL (4.30-5.70) 4.09 x10^6/uL (4.30-5.70) Hemoglobin 14.7 g/dL (13.0-17.5) 12.7 g/dL (13.0-17.5) Hematocrit 42.3 % (39.0-53.0) 36.8 % (39.0-53.0) Mean Corpuscular Volume 90 fL (79-100) 90 fL (79-100) Mean Corpuscular Hemoglobin 31 pg (25-35) 31 pg (25-35) Mean Corpuscular Hemoglobin Concent 35 g/dL (31-37) 35 g/dL (31-37) Red Cell Distribution Width 15.1 % (11.5-14.5) 14.6 % (11.5-14.5) Platelet Count 171 x10^3/uL (140-400) 151 x10^3/uL (140-400) Neutrophils (%) (Auto) 88 % (31-73) 96 % (31-73) Lymphocytes (%) (Auto) 5 % (24-48) 3 % (24-48) Monocytes (%) (Auto) 6 % (0-9) 2 % (0-9) Eosinophils (%) (Auto) 1 % (0-3) 0 % (0-3) Basophils (%) (Auto) 0 % (0-3) 0 % (0-3) Neutrophils # (Auto) 7.2 x10^3uL (1.8-7.7) 7.8 x10^3uL (1.8-7.7) Lymphocytes # (Auto) 0.4 x10^3/uL (1.0-4.8) 0.2 x10^3/uL (1.0-4.8) Monocytes # (Auto) 0.5 x10^3/uL (0.0-1.1) 0.1 x10^3/uL (0.0-1.1) Eosinophils # (Auto) 0.0 x10^3/uL (0.0-0.7) 0.0 x10^3/uL (0.0-0.7) Basophils # (Auto) 0.0 x10^3/uL (0.0-0.2) 0.0 x10^3/uL (0.0-0.2) Segmented Neutrophils % 89 % (35-66) Lymphocytes % 4 % (24-48) Monocytes % 7 % (0-10) Platelet Estimate Adequate (ADEQUATE) Prothrombin Time 12.3 SEC (11.7-14.0) Prothromb Time International Ratio 1.0 (0.8-1.1) Activated Partial Thromboplast Time 25 SEC (24-38) D-Dimer ([place]) 0.73 ug/mlFEU (0.00-0.50) Sodium Level 132 mmol/L (136-145) 136 mmol/L (136-145) Potassium Level 3.5 mmol/L (3.5-5.1) 4.2 mmol/L (3.5-5.1) Chloride Level 95 mmol/L (98-107) 99 mmol/L (98-107) Carbon Dioxide Level 34 mmol/L (21-32) 30 mmol/L (21-32) Anion Gap 3 (6-14) 7 (6-14) Blood Urea Nitrogen 16 mg/dL (8-26) 14 mg/dL (8-26) Creatinine 1.3 mg/dL (0.7-1.3) 1.2 mg/dL (0.7-1.3) Estimated GFR (Cockcroft-Gault) 68.6 75.2 Glucose Level 92 mg/dL (70-99) 194 mg/dL (70-99) Calcium Level 9.5 mg/dL (8.5-10.1) 8.5 mg/dL (8.5-10.1) Troponin I Quantitative 0.028 ng/mL (0.000-0.055) XI-Eap-F-Type Natriuretic Peptide 61 pg/mL (0-124) Procalcitonin 0.17 ng/mL (0.00-0.10) Medications Active Scripts Medications Dose Route/Sig Max Daily Dose Days Date Category [guaiFENesin/CODEINE 100mg/10mg] 5 ML Liquid 5 Ml PO PRN Q6HRS PRN 11/27/17 Rx Prednisone (Prednisone) 10 Mg Tablet 30 Mg PO DAILY 11/27/17 Rx Hydrocodone-Apap 5-325 (Hydrocodone Bit/Acetaminophen) 1 Each Tablet 1 Tab PO PRN Q4HRS PRN 11/27/17 Rx Levaquin (Levofloxacin) 750 Mg Tablet 750 Mg PO DAILY06 7 11/27/17 Rx Protonix (Pantoprazole Sodium) 20 Mg Tablet.dr 1 Tab PO DAILY 11/18/17 Reported Prednisone 20 Mg Tablet 10 Mg PO DAILY 11/18/17 Reported Flonase Allergy Relief (Fluticasone Propionate) 9.9 Ml [place].susp 2 Sprays NS DAILY 11/18/17 Reported Guaifenesin-Codeine Syrup (Guaifenesin/Codeine Phosphate) 118 Ml Liquid 5 Ml PO Q6HRS 10/10/17 Rx Furosemide 20 Mg Tablet 1 Tab PO DAILY 09/10/17 Rx Lactulose 20 Gm/30 Ml Solution 20 Gm PO DAILY 08/25/17 Rx Atorvastatin Calcium 10 Mg Tablet 10 Mg PO HS 08/21/17 Reported Albuterol Sulfate Neb Soln (Albuterol Sulfate) 2.5 Mg/3 Ml Vial.neb 1 Vial NEB PRN Q4HRS 07/10/17 Rx Aspir 81 (Aspirin) 81 Mg Tablet.dr 1 Tab PO DAILY 06/09/17 Reported Foltx Tablet (B12/Levomefolate Calcium/B-6) 1 Each Tablet 1 Each PO 06/09/17 Reported Symbicort 160-4.5 Mcg Inhaler (Budesonide/Formoterol Fumarate) 10.2 Gm Hfa.aer.ad 2 Puff IH BID 09/21/15 Reported Spiriva (Tiotropium [place]) 18 Mcg Cap.w.dev 2 Inh IH DAILY 09/21/15 Reported Impression . DICTATED AGREE WITH CURRENT RX THANKS SCOTT COOK MD Dec 07, 2017 18:09
[2017-12-07] MEDS: ENOXAPARIN 40 MG/0.4 ML SYRINGE. SQ SCH (19:55)
[2017-12-07] MEDS: ATORVASTATIN CALCIUM 10 MG TABLET. PO SCH (19:56)
[2017-12-08] MEDS: guaiFENesin/CODEINE 100mg/10mg 5 ML LIQUID PO SCH ×5 (00:10→23:22)
--- NOTE | 2017-12-08 01:26 | CONS ---
DATE OF CONSULTATION: 12/07/2017 ATTENDING PHYSICIAN: Dr. Craft. REASON FOR CONSULTATION: The patient seen in pulmonary consultation at the request of Dr. Craft for acute respiratory distress. HISTORY OF PRESENT ILLNESS: The patient is a 57-year-old male who has history of chronic respiratory failure, severe COPD of the emphysematous type. He has got a large left bullae. He is actually being considered for transplant. He presented with increasing shortness of breath, no fever, chills, cough productive of discolored sputum. A chest x-ray was reviewed. There is no acute infiltrates. He was admitted. I was asked to see him in consultation. PAST MEDICAL HISTORY: 1. Remarkable for chronic respiratory failure, chronically on 2 liters. COPD of the emphysematous type with a large bullae on the left upper lobe. 2. Chronic heart failure. 3. Tobacco dependence, in remission. 4. The patient has a history of secondary pulmonary hypertension, hepatitis. ALLERGIES: No known drug allergies. SOCIAL HISTORY: He denies any tobacco, quit in 2017. FAMILY HISTORY: Heart disease. No family history of lung disorders. CURRENT MEDICATIONS: List was reviewed. REVIEW OF SYSTEMS: As indicated above, otherwise, a 10-point system was reviewed and negative. CONSTITUTIONAL: No fever or chills. EYES: No change in visual acuity. HEENT: No nasal congestion or sore throat. PULMONARY: As indicated above. CARDIOVASCULAR: No chest pain or pressure. GASTROINTESTINAL: No nausea, vomiting, or diarrhea. GENITOURINARY: No dysuria or frequency. MUSCULOSKELETAL: No localized muscle aches or joint pain. SKIN: No new skin lesions. NEUROLOGIC: No headaches, diplopia or blurred vision. PHYSICAL EXAMINATION: VITAL SIGNS: Stable. O2 saturation was greater than 92%. He had a fever yesterday of 100.1. HEENT: Eyes, the sclerae were nonicteric. NECK: Jugular venous distention was not elevated. No lymphadenopathy. CHEST: Full expansion. LUNGS: Poor airway flow with no wheezes. CARDIOVASCULAR: Regular rate and rhythm with S1, S2, no S3. ABDOMEN: Soft, nontender, nondistended. EXTREMITIES: No clubbing, cyanosis or edema. NEUROLOGIC: The patient was awake, alert, following commands. A detailed neuro exam was not performed. LABORATORY DATA: White count was noted to be normal. Hemoglobin and hematocrit were noted. Electrolytes were noted. Sodium was low. Procalcitonin was 0.17. IMPRESSION: 1. Acute on chronic respiratory failure. 2. Clinical pneumonia. 3. 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 4. Chronic obstructive pulmonary disease exacerbation. 5. Fever. PLAN: 1. Recommend continue current antibiotics. 2. Nebulized treatments. 3. The patient is currently being evaluated for transplant. 4. We will refer him to [facility] for possible bullectomy as an outpatient. Dr. Craft, I do appreciate the privilege in sharing this patient's care. SCOTT COOK MD DR: MAVERICK/efrain JOB#: [id number] / [id number]
[2017-12-08 03:57] VITALS: BP 114/75
[2017-12-08] MEDS: HYDROcodone/APAP 5/325MG 1 TAB TABLET PO PRN ×3 (05:02→23:25)
[2017-12-08] MEDS: IPRATRPIUM/ALBUTEROL 0.5/2.5MG 3 ML NEBU. NEB SCH ×4 (07:21→20:03)
[2017-12-08 07:42] VITALS: BP 133/87
--- NOTE | 2017-12-08 07:54 | PDOC ---
PULMONARY PROGRESS NOTES Vitals Vital Signs Date Time Temp Pulse Resp B/P (MAP) Pulse Ox O2 Delivery O2 Flow Rate FiO2 12/08/17 07:42 98.2 102 18 133/87 (102) 98 Nasal Cannula 3.0 98.2 General: Alert, No acute distress Lungs: Other Cardiovascular: S1, S2 Abdomen: Soft, Non-tender Extremities: No Edema, Other Labs Laboratory Tests Test 12/06/17 21:25 12/07/17 03:40 White Blood Count 8.2 x10^3/uL (4.0-11.0) 8.2 x10^3/uL (4.0-11.0) Red Blood Count 4.71 x10^6/uL (4.30-5.70) 4.09 x10^6/uL (4.30-5.70) Hemoglobin 14.7 g/dL (13.0-17.5) 12.7 g/dL (13.0-17.5) Hematocrit 42.3 % (39.0-53.0) 36.8 % (39.0-53.0) Mean Corpuscular Volume 90 fL (79-100) 90 fL (79-100) Mean Corpuscular Hemoglobin 31 pg (25-35) 31 pg (25-35) Mean Corpuscular Hemoglobin Concent 35 g/dL (31-37) 35 g/dL (31-37) Red Cell Distribution Width 15.1 % (11.5-14.5) 14.6 % (11.5-14.5) Platelet Count 171 x10^3/uL (140-400) 151 x10^3/uL (140-400) Neutrophils (%) (Auto) 88 % (31-73) 96 % (31-73) Lymphocytes (%) (Auto) 5 % (24-48) 3 % (24-48) Monocytes (%) (Auto) 6 % (0-9) 2 % (0-9) Eosinophils (%) (Auto) 1 % (0-3) 0 % (0-3) Basophils (%) (Auto) 0 % (0-3) 0 % (0-3) Neutrophils # (Auto) 7.2 x10^3uL (1.8-7.7) 7.8 x10^3uL (1.8-7.7) Lymphocytes # (Auto) 0.4 x10^3/uL (1.0-4.8) 0.2 x10^3/uL (1.0-4.8) Monocytes # (Auto) 0.5 x10^3/uL (0.0-1.1) 0.1 x10^3/uL (0.0-1.1) Eosinophils # (Auto) 0.0 x10^3/uL (0.0-0.7) 0.0 x10^3/uL (0.0-0.7) Basophils # (Auto) 0.0 x10^3/uL (0.0-0.2) 0.0 x10^3/uL (0.0-0.2) Segmented Neutrophils % 89 % (35-66) Lymphocytes % 4 % (24-48) Monocytes % 7 % (0-10) Platelet Estimate Adequate (ADEQUATE) Prothrombin Time 12.3 SEC (11.7-14.0) Prothromb Time International Ratio 1.0 (0.8-1.1) Activated Partial Thromboplast Time 25 SEC (24-38) D-Dimer (Almita) 0.73 ug/mlFEU (0.00-0.50) Sodium Level 132 mmol/L (136-145) 136 mmol/L (136-145) Potassium Level 3.5 mmol/L (3.5-5.1) 4.2 mmol/L (3.5-5.1) Chloride Level 95 mmol/L (98-107) 99 mmol/L (98-107) Carbon Dioxide Level 34 mmol/L (21-32) 30 mmol/L (21-32) Anion Gap 3 (6-14) 7 (6-14) Blood Urea Nitrogen 16 mg/dL (8-26) 14 mg/dL (8-26) Creatinine 1.3 mg/dL (0.7-1.3) 1.2 mg/dL (0.7-1.3) Estimated GFR (Cockcroft-Gault) 68.6 75.2 Glucose Level 92 mg/dL (70-99) 194 mg/dL (70-99) Calcium Level 9.5 mg/dL (8.5-10.1) 8.5 mg/dL (8.5-10.1) Troponin I Quantitative 0.028 ng/mL (0.000-0.055) AI-Iot-O-Type Natriuretic Peptide 61 pg/mL (0-124) Procalcitonin 0.17 ng/mL (0.00-0.10) Medications Active Scripts Medications Dose Route/Sig Max Daily Dose Days Date Category [guaiFENesin/CODEINE 100mg/10mg] 5 ML Liquid 5 Ml PO PRN Q6HRS PRN 11/27/17 Rx Prednisone (Prednisone) 10 Mg Tablet 30 Mg PO DAILY 11/27/17 Rx Hydrocodone-Apap 5-325 (Hydrocodone Bit/Acetaminophen) 1 Each Tablet 1 Tab PO PRN Q4HRS PRN 11/27/17 Rx Levaquin (Levofloxacin) 750 Mg Tablet 750 Mg PO DAILY06 7 11/27/17 Rx Protonix (Pantoprazole Sodium) 20 Mg Tablet.dr 1 Tab PO DAILY 11/18/17 Reported Prednisone 20 Mg Tablet 10 Mg PO DAILY 11/18/17 Reported Flonase Allergy Relief (Fluticasone Propionate) 9.9 Ml [place].susp 2 Sprays NS DAILY 11/18/17 Reported Guaifenesin-Codeine Syrup (Guaifenesin/Codeine Phosphate) 118 Ml Liquid 5 Ml PO Q6HRS 10/10/17 Rx Furosemide 20 Mg Tablet 1 Tab PO DAILY 09/10/17 Rx Lactulose 20 Gm/30 Ml Solution 20 Gm PO DAILY 08/25/17 Rx Atorvastatin Calcium 10 Mg Tablet 10 Mg PO HS 08/21/17 Reported Albuterol Sulfate Neb Soln (Albuterol Sulfate) 2.5 Mg/3 Ml Vial.neb 1 Vial NEB PRN Q4HRS 07/10/17 Rx Aspir 81 (Aspirin) 81 Mg Tablet.dr 1 Tab PO DAILY 06/09/17 Reported Foltx Tablet (B12/Levomefolate Calcium/B-6) 1 Each Tablet 1 Each PO 06/09/17 Reported Symbicort 160-4.5 Mcg Inhaler (Budesonide/Formoterol Fumarate) 10.2 Gm Hfa.aer.ad 2 Puff IH BID 09/21/15 Reported Spiriva (Tiotropium [place]) 18 Mcg Cap.w.dev 2 Inh IH DAILY 09/21/15 Reported Impression . IMPRESSION: 1. Acute on chronic respiratory failure. 2. Clinical pneumonia. 3. 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 4. Chronic obstructive pulmonary disease exacerbation. 5. Fever. Plan . 1. Recommend continue current antibiotics. 2. Nebulized treatments. 3. The patient is currently being evaluated for transplant. 4. We will refer him to [facility] for possible bullectomy as an outpatient. SCOTT COOK MD Dec 08, 2017 07:54
[2017-12-08] MEDS ORDERED: NON FORMULARY ITEM (Tiotropium Bromide (Spiriva) 2 INH) IH SCH (09:00)
[2017-12-08] MEDS: LACTULOSE 20 GM/30 ML SOLUTION. PO SCH (09:19)
[2017-12-08] MEDS: FLUTICASONE 50MCG/NASAL SPRAY 16GM BOTTLE. NS SCH (09:19)
[2017-12-08] MEDS: PANTOPRAZOLE 40 MG TABLET.DR. PO SCH (09:19)
[2017-12-08] MEDS: FUROSEMIDE 20 MG TABLET PO SCH (09:19)
[2017-12-08] MEDS: BENZONATATE 100 MG CAPSULE. PO SCH ×3 (09:20→20:41)
[2017-12-08] MEDS: ASPIRIN ENTERIC COATED 81 MG TABLET.DR. PO SCH (09:20)
[2017-12-08] MEDS: predniSONE 20 MG TABLET PO SCH (09:20)
[2017-12-08 11:33] VITALS: BP 149/71
[2017-12-08] MEDS ORDERED: PRED20TA PO (12:30)
[2017-12-08] MEDS ORDERED: HYDR-2758 PO (12:30)
--- NOTE | 2017-12-08 12:34 | PDOC3 ---
Discharge Summary Visit Information Date of Admission: Dec 07, 2017 Date of Discharge: Dec 08, 2017 Admitting Diagnosis Comment: COPD flare Known large left upper lobe bullae NO PNA on CXR Acute bronchitis Chronic O2 [id number] L nasal cannula 24 7 Hypertension, CHF, chronic stable Final Diagnosis Problems Medical Problems: (1) COPD with exacerbation Status: Acute Brief Hospital Course Allergies Allergies Coded Allergies Type Severity Reaction Last Updated Verified No Known Drug Allergies 10/13/17 No Vital Signs Vital Signs Date Time Temp Pulse Resp B/P (MAP) Pulse Ox O2 Delivery O2 Flow Rate FiO2 12/08/17 12:09 97 Nasal Cannula 3.0 12/08/17 11:33 97.9 97 19 149/71 (97) 97.9 Lab Results Laboratory Tests Test 12/06/17 21:25 12/07/17 03:40 White Blood Count 8.2 x10^3/uL (4.0-11.0) 8.2 x10^3/uL (4.0-11.0) Red Blood Count 4.71 x10^6/uL (4.30-5.70) 4.09 x10^6/uL (4.30-5.70) Hemoglobin 14.7 g/dL (13.0-17.5) 12.7 g/dL (13.0-17.5) Hematocrit 42.3 % (39.0-53.0) 36.8 % (39.0-53.0) Mean Corpuscular Volume 90 fL (79-100) 90 fL (79-100) Mean Corpuscular Hemoglobin 31 pg (25-35) 31 pg (25-35) Mean Corpuscular Hemoglobin Concent 35 g/dL (31-37) 35 g/dL (31-37) Red Cell Distribution Width 15.1 % (11.5-14.5) 14.6 % (11.5-14.5) Platelet Count 171 x10^3/uL (140-400) 151 x10^3/uL (140-400) Neutrophils (%) (Auto) 88 % (31-73) 96 % (31-73) Lymphocytes (%) (Auto) 5 % (24-48) 3 % (24-48) Monocytes (%) (Auto) 6 % (0-9) 2 % (0-9) Eosinophils (%) (Auto) 1 % (0-3) 0 % (0-3) Basophils (%) (Auto) 0 % (0-3) 0 % (0-3) Neutrophils # (Auto) 7.2 x10^3uL (1.8-7.7) 7.8 x10^3uL (1.8-7.7) Lymphocytes # (Auto) 0.4 x10^3/uL (1.0-4.8) 0.2 x10^3/uL (1.0-4.8) Monocytes # (Auto) 0.5 x10^3/uL (0.0-1.1) 0.1 x10^3/uL (0.0-1.1) Eosinophils # (Auto) 0.0 x10^3/uL (0.0-0.7) 0.0 x10^3/uL (0.0-0.7) Basophils # (Auto) 0.0 x10^3/uL (0.0-0.2) 0.0 x10^3/uL (0.0-0.2) Segmented Neutrophils % 89 % (35-66) Lymphocytes % 4 % (24-48) Monocytes % 7 % (0-10) Platelet Estimate Adequate (ADEQUATE) Prothrombin Time 12.3 SEC (11.7-14.0) Prothromb Time International Ratio 1.0 (0.8-1.1) Activated Partial Thromboplast Time 25 SEC (24-38) D-Dimer (Almita) 0.73 ug/mlFEU (0.00-0.50) Sodium Level 132 mmol/L (136-145) 136 mmol/L (136-145) Potassium Level 3.5 mmol/L (3.5-5.1) 4.2 mmol/L (3.5-5.1) Chloride Level 95 mmol/L (98-107) 99 mmol/L (98-107) Carbon Dioxide Level 34 mmol/L (21-32) 30 mmol/L (21-32) Anion Gap 3 (6-14) 7 (6-14) Blood Urea Nitrogen 16 mg/dL (8-26) 14 mg/dL (8-26) Creatinine 1.3 mg/dL (0.7-1.3) 1.2 mg/dL (0.7-1.3) Estimated GFR (Cockcroft-Gault) 68.6 75.2 Glucose Level 92 mg/dL (70-99) 194 mg/dL (70-99) Calcium Level 9.5 mg/dL (8.5-10.1) 8.5 mg/dL (8.5-10.1) Troponin I Quantitative 0.028 ng/mL (0.000-0.055) BY-Igl-V-Type Natriuretic Peptide 61 pg/mL (0-124) Procalcitonin 0.17 ng/mL (0.00-0.10) Brief Hospital Course Mr. Nash is a 57 old known to us, admitted for another COPD flare. On inhalers, possibly ex-smoker but not anymore. Known to have a very large left bullae. Already following up at [facility] for possible bullectomy some time before the year ends. No pneumonia on x-ray, acute bronchitis. Has some money issues, chronic home O2 Medicaid.pays for his oxygen. He already has scripts but cannot afford Nebules. Needed to taper some steroids I have Rx'd steroid taper and along with pain medicines per his request, 20 pills Conuslts performed pulmonary Procedures performed none Time spent discharging less than 30 minutes Discharge Information Condition at Discharge: Improved, Stable Disposition/Orders: D/C to Home Scheduled Albuterol Sulfate (Albuterol Sulfate Neb Soln) 2.5 Mg/3 Ml Vial.neb, 1 VIAL NEB PRN Q4HRS, #50 Prescribed by: TEVIN GOODWIN MD on 07/10/17 0144 Last Action: HELD on 12/07/17937 by RAI DURANT Aspirin (Aspir 81) 81 Mg Tablet., 1 TAB PO DAILY, #30 Ref 5 (Reported) Entered as Reported by: Rebecca Miller on 06/09/17 0251 Last Action: Continued on 12/07/17937 by RAI DURANT Atorvastatin Calcium (Atorvastatin Calcium) 10 Mg Tablet, 10 MG PO HS for FOR CHOLESTEROL, #30 Ref 0 (Reported) Entered as Reported by: Romero Bland on 08/21/17 0246 Last Action: Continued on 12/07/17937 by RAI DURANT Budesonide/Formoterol Fumarate (Symbicort 160-4.5 Mcg Inhaler) 10.2 Gm Hfa.aer.ad, 2 PUFF IH BID, #10.6 Ref 3 (Reported) Entered as Reported by: IMELDA PENNY on 09/21/152225 Last Action: HELD on 12/07/17937 by RAIMartín DURANT Fluticasone Propionate (Flonase Allergy Relief) 9.9 Ml [place].susp, 2 SPRAYS NS DAILY, (Reported) Entered as Reported by: FREDA SUAREZ on 11/18/172350 Last Action: Converted on 12/07/17937 by RAIMartín DURANT Furosemide (Furosemide) 20 Mg Tablet, 1 TAB PO DAILY, #90 Ref 1 Prescribed by: ACE BARRY D.O. on 09/10/17 0407 Last Action: Continued on 12/07/17937 by RAIMartín DURANT Guaifenesin/Codeine Phosphate (Guaifenesin-Codeine Syrup) 118 Ml Liquid, 5 ML PO Q6HRS, #120 Prescribed by: TEVIN GOODWIN MD on 10/10/17 1140 Last Action: Converted on 12/07/17937 by RAIMartín DURANT Lactulose (Lactulose) 20 Gm/30 Ml Solution, 20 GM PO DAILY, #480 Prescribed by: JULIETA DAWSON D.O. on 08/25/17 06 Last Action: Continued on 12/07/17937 by RAIMartín DURANT Levofloxacin (Levaquin) 750 Mg Tablet, 750 MG PO DAILY06 for 7 Days, #7 Prescribed by: HERMELINDO RICHARDSON MD on 11/27/17 1106 Last Action: HELD on 12/07/17937 by RAI BHARGAV Pantoprazole Sodium (Protonix) 20 Mg Tablet.dr, 1 TAB PO DAILY, #30 (Reported) Entered as Reported by: FREDA SUAREZ on 11/18/172350 Last Action: Converted on 12/07/17937 by RAIMartín DURANT Prednisone (Prednisone) 20 Mg Tablet, 10 MG PO DAILY, (Reported) Entered as Reported by: FREDA SUAREZ on 11/18/172350 Last Action: HELD on 12/07/17937 by RAIMartín DURANT Prednisone (Prednisone ) 10 Mg Tablet, 30 MG PO DAILY, #20 Prescribed by: HERMELINDO RICHARDSON MD on 11/27/17 1106 Last Action: HELD on 12/07/17937 by RAI DURANT Prednisone (Prednisone) 20 Mg Tablet, 50 MG PO DAILY for 7 Days, #18 Prescribed by: RAI DURANT on 12/08/17 1230 Tiotropium [place] (Spiriva) 18 Mcg Cap.w.dev, 2 INH IH DAILY, #1 Ref 0 ( Reported) Entered as Reported by: IMELDA PENNY on 09/21/152223 Last Action: Converted on 12/07/17937 by RAI DURANT Scheduled PRN Hydrocodone Bit/Acetaminophen (Hydrocodone-Apap 5-325 ) 1 Each Tablet, 1 TAB PO PRN Q4HRS PRN for MODERATE PAIN, #20 Prescribed by: RAI DURANT on 12/08/17 1230 [guaiFENesin/CODEINE 100mg/10mg] 5 ML LIQUID, 5 ML PO PRN Q6HRS PRN for COUGH, # 100 Prescribed by: HERMELINDO RICHARDSON MD on 11/27/17 1108 Last Action: HELD on 12/07/17937 by RAI DURANT Miscellaneous Medications B12/Levomefolate Calcium/B-6 (Foltx Tablet) 1 Each Tablet, 1 EACH PO, (Reported) Entered as Reported by: Rebecca Miller on 06/09/17 0251 Last Action: HELD on 12/07/17937 by RAI COOK MD Dec 08, 2017 12:34
[2017-12-08 15:55] VITALS: BP 119/83
[2017-12-08 19:35] VITALS: BP 122/80
[2017-12-08] MEDS: ATORVASTATIN CALCIUM 10 MG TABLET. PO SCH (20:41)
[2017-12-08] MEDS: ENOXAPARIN 40 MG/0.4 ML SYRINGE. SQ SCH (20:42)
[2017-12-08 23:43] VITALS: BP 137/89
[2017-12-09 03:17] VITALS: BP 140/81
[2017-12-09] MEDS: ALBUTEROL SULFATE 2.5 MG/3 ML NEBU. NEB PRN ×2 (03:32→20:24)
[2017-12-09] MEDS: guaiFENesin/CODEINE 100mg/10mg 5 ML LIQUID PO SCH ×3 (06:16→17:56)
[2017-12-09 07:52] VITALS: BP 108/79
[2017-12-09] MEDS: IPRATRPIUM/ALBUTEROL 0.5/2.5MG 3 ML NEBU. NEB SCH ×3 (08:30→16:10)
[2017-12-09] MEDS: predniSONE 20 MG TABLET PO SCH (08:39)
[2017-12-09] MEDS: LACTULOSE 20 GM/30 ML SOLUTION. PO SCH (08:39)
[2017-12-09] MEDS: PANTOPRAZOLE 40 MG TABLET.DR. PO SCH (08:39)
[2017-12-09] MEDS: ASPIRIN ENTERIC COATED 81 MG TABLET.DR. PO SCH (08:40)
[2017-12-09] MEDS: FLUTICASONE 50MCG/NASAL SPRAY 16GM BOTTLE. NS SCH (08:40)
[2017-12-09] MEDS: BENZONATATE 100 MG CAPSULE. PO SCH ×3 (08:40→20:47)
[2017-12-09] MEDS: FUROSEMIDE 20 MG TABLET PO SCH (08:40)
[2017-12-09 11:16] VITALS: BP 119/80
--- NOTE | 2017-12-09 11:56 | PDOC ---
PROGRESS NOTES Chief Complaint Chief Complaint COPD flare Known large left upper lobe bullae - planned for bullectomy [facility] NO PNA on CXR Acute bronchitis Chronic O2 fvgymbnic-8-9 L nasal cannula 24 7 Hypertension, CHF, chronic stable History of Present Illness History of Present Illness NO Increase in SOA Pulmonary has requested one more day-we are trying to arrange for [facility] (NOT a transfer)-he has a planned bullectomy sometime before the year ends Patient is on home O2, quit smoking already PLAN: CPM 1 more night PAllned for bullectomy - [facility] with [facility];es Vitals Vitals Vital Signs Date Time Temp Pulse Resp B/P (MAP) Pulse Ox O2 Delivery O2 Flow Rate FiO2 12/09/17 11:16 98.2 89 18 119/80 (93) 97 Nasal Cannula 3.0 98.2 Physical Exam General: Alert, Oriented X3, Cooperative Heart: Regular rate, Normal S1, Normal S2 Lungs: Wheezing, Other Abdomen: Normal bowel sounds, Soft, No tenderness, No hepatosplenomegaly, No masses Extremities: No clubbing, No cyanosis, No edema, Normal pulses Skin: No breakdown, No significant lesion, Other (very dry skin) Review of Systems Review of Systems A 14 point ROS was completed with the following noted as positive: Other systems reviewed and negative. \CONSTITUTIONAL: No fever or chills EYES: No recent changes SKIN: No rash or itching CARDIOVASCULAR: No chest pain, syncope, palpitations, or edema RESPIRATORY: No SOB or cough GASTROINTESTINAL: No nausea, vomiting or abdominal pain NEUROLOGICAL: No headaches or weakness ENDOCRINE: No cold or heat intolerance GENITOURINARY: No urgency or frequency of urination MUSCULOSKELETAL: No back pain or joint pain LYMPHATICS: No enlarged lymph nodes PSYCHIATRIC: No anxiety or depression Assessment and Plan Assessmemt and Plan Problems Medical Problems: (1) COPD with exacerbation Status: Acute Comment Review of Relevant I have reviewed the following items franki (where applicable) has been applied. Labs Microbiology 12/06/17 Blood Culture - Preliminary, Resulted NO GROWTH AFTER 2 DAYS Medications Current Medications Albuterol/ Ipratropium (Duoneb) 3 ml 1X ONCE NEB Last administered on at 21:48; Start 12/06/17 at 22:00; Stop 12/06/17 at 22:01; Status DC Albuterol Sulfate (Ventolin Neb Soln) 2.5 mg 1X ONCE NEB ; Start 12/06/17 at 22:30; Stop 12/06/17 at 22:31; Status DC Fentanyl Citrate (Fentanyl 2ml Vial) 75 mcg 1X ONCE IV Last administered on at 22:57; Start 12/06/17 at 22:30; Stop 12/06/17 at 22:31; Status DC Acetaminophen (Tylenol) 1,000 mg 1X ONCE PO Last administered on 12/06/17at 22 :57; Start 12/06/17 at 23:00; Stop 12/06/17 at 23:01; Status DC Sodium Chloride 1,000 ml @ 1,000 mls/hr 1X ONCE IV Last administered on 12/06at 22:56; Start 12/06/17 at 23:00; Stop 12/06/17 at 23:59; Status DC Ceftriaxone Sodium 50 ml @ 100 mls/hr 1X ONCE IV Last administered on at 22:56; Start 12/06/17 at 23:00; Stop 12/06/17 at 23:29; Status DC Azithromycin 250 ml @ 250 mls/hr 1X ONCE IV Last administered on 12/07/17at 00:09; Start 12/06/17 at 23:30; Stop 12/07/17 at 00:29; Status DC Ondansetron HCl (Zofran) 4 mg PRN Q8HRS PRN IV NAUSEA/VOMITING 1ST CHOICE; Start 12/06/17 at 23:15; Stop 12/07/17 at 09:38; Status DC Fentanyl Citrate (Fentanyl 2ml Vial) 50 mcg PRN Q1HR PRN IV SEVERE PAIN Last administered on 12/07/17at 10:01; Start 12/06/17 at 23:15; Stop 12/07/17 at 23 :14; Status DC Acetaminophen (Tylenol) 1,000 mg PRN Q6HRS PRN PO FEVER; Start 12/06/17 at 23: 15 Albuterol Sulfate (Ventolin Neb Soln) 2.5 mg Q3HRS NEB Last administered on at 07:57; Start 12/07/17 at 00:00; Stop 12/07/17 at 12:34; Status DC Methylprednisolone Sodium Succinate (SOLU-Medrol 125MG VIAL) 125 mg 1X ONCE IV Last administered on 12/07/17at 00:08; Start 12/06/17 at 23:30; Stop at 23:31; Status DC Ondansetron HCl (Zofran) 4 mg PRN Q6HRS PRN IV NAUSEA/VOMITING 1ST CHOICE; Start 12/07/17 at 09:45 Benzonatate (Tessalon Perle) 100 mg [id number] PO Last administered on 12/09/17at 08:40; Start 12/07/17 at 14:00 Guaifenesin (Robitussin Dm) 10 ml PRN Q6HRS PRN PO COUGH; Start 12/07/17 at 09 :45 Aspirin (Ecotrin) 81 mg DAILY PO Last administered on 12/09/17at 08:40; Start 12/07/17 at 11:00 Atorvastatin Calcium (Lipitor) 10 mg HS PO Last administered on 12/08/17at 20: 41; Start 12/07/17 at 21:00 Furosemide (Lasix) 20 mg DAILY PO Last administered on 12/09/17at 08:40; Start 12/07/17 at 11:00 Acetaminophen/ Hydrocodone Bitart (Lortab 5/325) 1 tab PRN Q4HRS PRN PO MODERATE PAIN Last administered on 12/08/17at 23:25; Start 12/07/17 at 09:45 Lactulose (Lactulose) 20 gm DAILY PO Last administered on 12/09/17at 08:39; Start 12/07/17 at 11:00 Fluticasone Propionate (Flonase) 2 spray DAILY NS Last administered on at 08:40; Start 12/07/17 at 11:00 Guaifenesin/ Codeine Phosphate (Robitussin Ac) 5 ml Q6HRS PO Last administered on 12/09/17at 06:16; Start 12/07/17 at 12:00 Pantoprazole Sodium (Protonix) 40 mg DAILYAC PO Last administered on at 08:39; Start 12/07/17 at 11:00 Non-Formulary Medication (Tiotropium [place] (Spiriva)) 2 inh DAILY IH ; Start 12/08/17 at 09:00; Status UNV Albuterol/ Ipratropium (Duoneb) 3 ml RTQID NEB Last administered on 12/09/17at 08:30; Start 12/07/17 at 12:00 Prednisone (Prednisone) 50 mg DAILY PO Last administered on 12/09/17at 08:39; Start 12/07/17 at 13:30 Enoxaparin Sodium (Lovenox 40mg Syringe) 40 mg Q24H SQ ; Start 12/07/17 at 21: 00 Albuterol Sulfate (Ventolin Neb Soln) 2.5 mg PRN Q6HRS PRN NEB SHORTNESS OF BREATH Last administered on 12/09/17at 03:32; Start 12/09/17 at 03:15 Active Scripts Active Prednisone 20 Mg Tablet 50 Mg PO DAILY 7 Days Hydrocodone-Apap 5-325 (Hydrocodone Bit/Acetaminophen) 1 Each Tablet 1 Tab PO PRN Q4HRS PRN [guaiFENesin/CODEINE 100mg/10mg] 5 ML Liquid 5 Ml PO PRN Q6HRS PRN Prednisone (Prednisone) 10 Mg Tablet 30 Mg PO DAILY Levaquin (Levofloxacin) 750 Mg Tablet 750 Mg PO DAILY06 7 Days Guaifenesin-Codeine Syrup (Guaifenesin/Codeine Phosphate) 118 Ml Liquid 5 Ml PO Q6HRS Furosemide 20 Mg Tablet 1 Tab PO DAILY Lactulose 20 Gm/30 Ml Solution 20 Gm PO DAILY Albuterol Sulfate Neb Soln (Albuterol Sulfate) 2.5 Mg/3 Ml Vial.neb 1 Vial NEB PRN Q4HRS Reported Protonix (Pantoprazole Sodium) 20 Mg Tablet.dr 1 Tab PO DAILY Prednisone 20 Mg Tablet 10 Mg PO DAILY Flonase Allergy Relief (Fluticasone Propionate) 9.9 Ml [place].susp 2 Sprays NS DAILY Atorvastatin Calcium 10 Mg Tablet 10 Mg PO HS Aspir 81 (Aspirin) 81 Mg Tablet.dr 1 Tab PO DAILY Foltx Tablet (B12/Levomefolate Calcium/B-6) 1 Each Tablet 1 Each PO Symbicort 160-4.5 Mcg Inhaler (Budesonide/Formoterol Fumarate) 10.2 Gm Hfa.aer.ad 2 Puff IH BID Spiriva (Tiotropium [place]) 18 Mcg Cap.w.dev 2 Inh IH DAILY Vitals/I & O Vital Sign - Last 24 Hours 12/08/17 12/08/17 12/08/17 12/08/17 12:09 14:32 15:30 15:55 Temp 98.6 98.6 Pulse 93 Resp 20 19 19 B/P (MAP) 119/83 (95) Pulse Ox 97 96 O2 Delivery Nasal Cannula Nasal Cannula Nasal Cannula Nasal Cannula O2 Flow Rate 3.0 3.0 3.0 3.0 12/08/17 12/08/17 12/08/17 12/08/17 16:13 19:35 20:04 20:15 Temp 98.3 98.3 Pulse 97 Resp 18 B/P (MAP) 122/80 (94) Pulse Ox 98 98 98 O2 Delivery Nasal Cannula Nasal Cannula Nasal Cannula Nasal Cannula O2 Flow Rate 3.0 3.0 3.0 3.0 12/08/17 12/09/17 12/09/17 12/09/17 23:43 03:17 03:33 07:52 Temp 98.1 98.1 97.9 98.1 98.1 97.9 Pulse 103 88 Resp 18 18 19 B/P (MAP) 137/89 (105) 140/81 (100) 108/79 (89) Pulse Ox 97 97 98 100 O2 Delivery Nasal Cannula Nasal Cannula Nasal Cannula Nasal Cannula O2 Flow Rate 3.0 3.0 3.0 3.0 12/09/17 12/09/17 08:30 11:16 Temp 98.2 98.2 Pulse 89 Resp 18 B/P (MAP) 119/80 (93) Pulse Ox 98 97 O2 Delivery Nasal Cannula Nasal Cannula O2 Flow Rate 3.0 3.0 Intake and Output 12/08/17 12/08/17 12/09/17 15:00 23:00 07:00 Intake Total 660 ml 480 ml 900 ml Output Total 600 ml 400 ml Balance 60 ml 80 ml 900 ml RAI DURANT MD Dec 09, 2017 11:56
--- NOTE | 2017-12-09 13:40 | PDOC ---
PULMONARY PROGRESS NOTES Subjective PT STILL SOA Vitals Vital Signs Date Time Temp Pulse Resp B/P (MAP) Pulse Ox O2 Delivery O2 Flow Rate FiO2 12/09/17 12:02 98 Nasal Cannula 3.0 12/09/17 11:16 98.2 89 18 119/80 (93) 98.2 General: Alert, No acute distress Lungs: Wheezing, Other Cardiovascular: S1, S2 Abdomen: Soft, Non-tender Extremities: No Edema, Other Medications Active Scripts Medications Dose Route/Sig Max Daily Dose Days Date Category [guaiFENesin/CODEINE 100mg/10mg] 5 ML Liquid 5 Ml PO PRN Q6HRS PRN 11/27/17 Rx Prednisone (Prednisone) 10 Mg Tablet 30 Mg PO DAILY 11/27/17 Rx Hydrocodone-Apap 5-325 (Hydrocodone Bit/Acetaminophen) 1 Each Tablet 1 Tab PO PRN Q4HRS PRN 11/27/17 Rx Levaquin (Levofloxacin) 750 Mg Tablet 750 Mg PO DAILY06 7 11/27/17 Rx Protonix (Pantoprazole Sodium) 20 Mg Tablet.dr 1 Tab PO DAILY 11/18/17 Reported Prednisone 20 Mg Tablet 10 Mg PO DAILY 11/18/17 Reported Flonase Allergy Relief (Fluticasone Propionate) 9.9 Ml [place].susp 2 Sprays NS DAILY 11/18/17 Reported Guaifenesin-Codeine Syrup (Guaifenesin/Codeine Phosphate) 118 Ml Liquid 5 Ml PO Q6HRS 10/10/17 Rx Furosemide 20 Mg Tablet 1 Tab PO DAILY 09/10/17 Rx Lactulose 20 Gm/30 Ml Solution 20 Gm PO DAILY 08/25/17 Rx Atorvastatin Calcium 10 Mg Tablet 10 Mg PO HS 08/21/17 Reported Albuterol Sulfate Neb Soln (Albuterol Sulfate) 2.5 Mg/3 Ml Vial.neb 1 Vial NEB PRN Q4HRS 07/10/17 Rx Aspir 81 (Aspirin) 81 Mg Tablet.dr 1 Tab PO DAILY 06/09/17 Reported Foltx Tablet (B12/Levomefolate Calcium/B-6) 1 Each Tablet 1 Each PO 06/09/17 Reported Symbicort 160-4.5 Mcg Inhaler (Budesonide/Formoterol Fumarate) 10.2 Gm Hfa.aer.ad 2 Puff IH BID 09/21/15 Reported Spiriva (Tiotropium [place]) 18 Mcg Cap.w.dev 2 Inh IH DAILY 09/21/15 Reported Impression . IMPRESSION: 1. Acute on chronic respiratory failure. 2. Clinical pneumonia. 3. 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 4. Chronic obstructive pulmonary disease exacerbation. 5. Fever. Plan . D/C IN AM FOLLOW UP IN MY OFFICE 1. Recommend continue current antibiotics. 2. Nebulized treatments. 3. The patient is currently being evaluated for transplant. 4. We will refer him to [facility] for possible bullectomy as an outpatient. SCOTT COOK MD Dec 09, 2017 13:40
[2017-12-09] MEDS: HYDROcodone/APAP 5/325MG 1 TAB TABLET PO PRN (15:01)
[2017-12-09 15:21] VITALS: BP 125/86
[2017-12-09 19:40] VITALS: BP 112/69
[2017-12-09] MEDS: ATORVASTATIN CALCIUM 10 MG TABLET. PO SCH (20:47)
[2017-12-09] MEDS: ENOXAPARIN 40 MG/0.4 ML SYRINGE. SQ SCH (21:00)
[2017-12-09 21:57] LABS: INFLUENZA A PATIENT NEGATIVE (NEGATIVE); INFLUENZA B PATIENT NEGATIVE (NEGATIVE)
[2017-12-09 23:51] VITALS: BP 112/79
[2017-12-10 03:40] VITALS: BP 131/73
[2017-12-10] MEDS: guaiFENesin/CODEINE 100mg/10mg 5 ML LIQUID PO SCH ×3 (05:19→11:56)
[2017-12-10] MEDS: HYDROcodone/APAP 5/325MG 1 TAB TABLET PO PRN (05:19)
[2017-12-10 07:38] VITALS: BP 130/88
[2017-12-10] MEDS: IPRATRPIUM/ALBUTEROL 0.5/2.5MG 3 ML NEBU. NEB SCH ×2 (07:43→11:06)
[2017-12-10] MEDS: PANTOPRAZOLE 40 MG TABLET.DR. PO SCH (07:50)
[2017-12-10] MEDS: FLUTICASONE 50MCG/NASAL SPRAY 16GM BOTTLE. NS SCH (07:50)
[2017-12-10] MEDS: BENZONATATE 100 MG CAPSULE. PO SCH (07:50)
[2017-12-10] MEDS: LACTULOSE 20 GM/30 ML SOLUTION. PO SCH (07:50)
[2017-12-10] MEDS: ASPIRIN ENTERIC COATED 81 MG TABLET.DR. PO SCH (07:51)
[2017-12-10] MEDS: FUROSEMIDE 20 MG TABLET PO SCH (07:51)
[2017-12-10] MEDS: predniSONE 20 MG TABLET PO SCH (07:51)
--- NOTE | 2017-12-10 09:18 | PDOC ---
PULMONARY PROGRESS NOTES Subjective PT STILL SOA Vitals Vital Signs Date Time Temp Pulse Resp B/P (MAP) Pulse Ox O2 Delivery O2 Flow Rate FiO2 12/10/17 08:00 Nasal Cannula 2.5 12/10/17 07:44 98 12/10/17 07:38 98.1 78 20 130/88 (102) 98.1 General: Alert, No acute distress Lungs: Wheezing, Other Cardiovascular: S1, S2 Abdomen: Soft, Non-tender Extremities: No Edema, Other Labs Laboratory Tests Test 12/09/17 21:15 Influenza Type A Antigen Negative (NEGATIVE) Influenza Type B Antigen Negative (NEGATIVE) Laboratory Tests Test 12/09/17 21:15 Influenza Type A Antigen Negative (NEGATIVE) Influenza Type B Antigen Negative (NEGATIVE) Medications Active Scripts Medications Dose Route/Sig Max Daily Dose Days Date Category [guaiFENesin/CODEINE 100mg/10mg] 5 ML Liquid 5 Ml PO PRN Q6HRS PRN 11/27/17 Rx Prednisone (Prednisone) 10 Mg Tablet 30 Mg PO DAILY 11/27/17 Rx Hydrocodone-Apap 5-325 (Hydrocodone Bit/Acetaminophen) 1 Each Tablet 1 Tab PO PRN Q4HRS PRN 11/27/17 Rx Levaquin (Levofloxacin) 750 Mg Tablet 750 Mg PO DAILY06 7 11/27/17 Rx Protonix (Pantoprazole Sodium) 20 Mg Tablet.dr 1 Tab PO DAILY 11/18/17 Reported Prednisone 20 Mg Tablet 10 Mg PO DAILY 11/18/17 Reported Flonase Allergy Relief (Fluticasone Propionate) 9.9 Ml [place].susp 2 Sprays NS DAILY 11/18/17 Reported Guaifenesin-Codeine Syrup (Guaifenesin/Codeine Phosphate) 118 Ml Liquid 5 Ml PO Q6HRS 10/10/17 Rx Furosemide 20 Mg Tablet 1 Tab PO DAILY 09/10/17 Rx Lactulose 20 Gm/30 Ml Solution 20 Gm PO DAILY 08/25/17 Rx Atorvastatin Calcium 10 Mg Tablet 10 Mg PO HS 08/21/17 Reported Albuterol Sulfate Neb Soln (Albuterol Sulfate) 2.5 Mg/3 Ml Vial.neb 1 Vial NEB PRN Q4HRS 07/10/17 Rx Aspir 81 (Aspirin) 81 Mg Tablet.dr 1 Tab PO DAILY 06/09/17 Reported Foltx Tablet (B12/Levomefolate Calcium/B-6) 1 Each Tablet 1 Each PO 06/09/17 Reported Symbicort 160-4.5 Mcg Inhaler (Budesonide/Formoterol Fumarate) 10.2 Gm Hfa.aer.ad 2 Puff IH BID 09/21/15 Reported Spiriva (Tiotropium [place]) 18 Mcg Cap.w.dev 2 Inh IH DAILY 09/21/15 Reported Impression . IMPRESSION: 1. Acute on chronic respiratory failure. 2. Clinical pneumonia. 3. 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 4. Chronic obstructive pulmonary disease exacerbation. 5. Fever. Plan . D/C FOLLOW IN OFFICE [facility] REFERRAL FOR POSSIBLE BULLECTOMY SCOTT COOK MD Dec 10, 2017 09:18
[2017-12-10 11:07] VITALS: BP 129/92
--- NOTE | 2017-12-20 12:55 | PDOC3 ---
Discharge Summary Visit Information Date of Admission: Dec 07, 2017 Date of Discharge: Dec 10, 2017 Admitting Diagnosis Comment: COPD flare Known large left upper lobe bullae NO PNA on CXR Acute bronchitis Chronic O2 [id number] L nasal cannula 24 7 Hypertension, CHF, chronic stable Final Diagnosis Problems Medical Problems: (1) COPD with exacerbation Status: Acute Brief Hospital Course Allergies Allergies Coded Allergies Type Severity Reaction Last Updated Verified No Known Drug Allergies 10/13/17 No Brief Hospital Course Mr. Nash is a 57 old [sex] who presented with [ ] Mr. Nash is a 57 old known to us, admitted for another COPD flare. On inhalers, possibly ex-smoker but not anymore. Known to have a very large left bullae. Already following up at [facility] for possible bullectomy some time before the year ends. No pneumonia on x-ray, acute bronchitis. Has some money issues, chronic home O2 Medicaid.pays for his oxygen. He already has scripts but cannot afford Nebules. Needed to taper some steroids I have Rx'd steroid taper and along with pain medicines per his request, 20 pills Conuslts performed pulmonary Procedures performed none Time spent discharging less than 30 minutes Discharge Information Condition at Discharge: Improved, Stable Scheduled Albuterol Sulfate (Albuterol Sulfate Neb Soln) 2.5 Mg/3 Ml Vial.neb, 1 VIAL NEB PRN Q4HRS, #50 Prescribed by: TEVIN GOODWIN MD on 07/10/17 0144 Last Action: HELD on 12/07/17937 by RAI DURANT Aspirin (Aspir 81) 81 Mg Tablet.dr, 1 TAB PO DAILY, #30 Ref 5 (Reported) Entered as Reported by: Rebecca Miller on 06/09/17 0251 Last Action: Continued on 12/07/17937 by RAI DURANT Atorvastatin Calcium (Atorvastatin Calcium) 10 Mg Tablet, 10 MG PO HS for FOR CHOLESTEROL, #30 Ref 0 (Reported) Entered as Reported by: Romero Bland on 08/21/17 0246 Last Action: Continued on 12/07/17937 by RAI DURANT Budesonide/Formoterol Fumarate (Symbicort 160-4.5 Mcg Inhaler) 10.2 Gm Hfa.aer.ad, 2 PUFF IH BID, #10.6 Ref 3 (Reported) Entered as Reported by: IMELDA PENNY on 09/21/152225 Last Action: HELD on 12/07/17937 by RAI DURANT Fluticasone Propionate (Flonase Allergy Relief) 9.9 Ml [place].susp, 2 SPRAYS NS DAILY, (Reported) Entered as Reported by: FREDA SUAREZ on 11/18/172350 Last Action: Converted on 12/07/17937 by RAI DURANT Furosemide (Furosemide) 20 Mg Tablet, 1 TAB PO DAILY, #90 Ref 1 Prescribed by: ACE BARRY D.O. on 09/10/17 0407 Last Action: Continued on 12/07/17937 by RAI DURANT Guaifenesin/Codeine Phosphate (Guaifenesin-Codeine Syrup) 118 Ml Liquid, 5 ML PO Q6HRS, #120 Prescribed by: TEVIN GOODWIN MD on 10/10/17 1140 Last Action: Converted on 12/07/17937 by RAI DURANT Lactulose (Lactulose) 20 Gm/30 Ml Solution, 20 GM PO DAILY, #480 Prescribed by: JULIETA DAWSON D.O. on 08/25/17 06 Last Action: Continued on 12/07/17937 by RAI DURANT Levofloxacin (Levaquin) 750 Mg Tablet, 750 MG PO DAILY06 for 7 Days, #7 Prescribed by: HERMELINDO RICHARDSON MD on 11/27/171105 Last Action: HELD on 12/07/17937 by RAI DURANT Pantoprazole Sodium (Protonix) 20 Mg Tablet.dr, 1 TAB PO DAILY, #30 (Reported) Entered as Reported by: FREDA SUAREZ on 11/18/172350 Last Action: Converted on 12/07/17937 by RAI DURANT Prednisone (Prednisone) 20 Mg Tablet, 10 MG PO DAILY, (Reported) Entered as Reported by: FREDA SUAREZ on 11/18/172350 Last Action: HELD on 12/07/17937 by RAI DURANT Prednisone (Prednisone ) 10 Mg Tablet, 30 MG PO DAILY, #20 Prescribed by: HERMELINDO RICHARDSON MD on 10/16/18 1106 Last Action: HELD on 12/07/17937 by RAI DURANT Prednisone (Prednisone) 20 Mg Tablet, 50 MG PO DAILY for 7 Days, #18 Prescribed by: RAI DURANT on 12/08/17 1230 Tiotropium [place] (Spiriva) 18 Mcg Cap.w.dev, 2 INH IH DAILY, #1 Ref 0 ( Reported) Entered as Reported by: IMELDA PENNY on 09/21/152223 Last Action: Converted on 12/07/17937 by RAI DURANT Scheduled PRN Hydrocodone Bit/Acetaminophen (Hydrocodone-Apap 5-325 ) 1 Each Tablet, 1 TAB PO PRN Q4HRS PRN for MODERATE PAIN, #20 Prescribed by: RAI DURANT on 12/08/17 1230 [guaiFENesin/CODEINE 100mg/10mg] 5 ML LIQUID, 5 ML PO PRN Q6HRS PRN for COUGH, # 100 Prescribed by: HERMELINDO RICHARDSON MD on 11/27/17 1108 Last Action: HELD on 12/07/17937 by RAI DURANT Miscellaneous Medications B12/Levomefolate Calcium/B-6 (Foltx Tablet) 1 Each Tablet, 1 EACH PO, (Reported) Entered as Reported by: Rebecca Miller on 06/09/17 0251 Last Action: HELD on 12/07/17937 by RAI COOK MD Dec 20, 2017 12:55
== END 2017-12-10 13:47 | disposition home or self-care (01) | DRG 871 ==
LOC: ER 20:51 → 6 SOUTH 22:50
PROVIDERS: ADMIT Family Medicine; ATTEND Family Medicine
DX: A41.9 Sepsis, unspecified organism (principal); J18.9 Pneumonia, unspecified organism; J96.20 Acute and chronic respiratory failure, unspecified whether with hypoxia or hypercapnia; I50.9 Heart failure, unspecified; I11.0 Hypertensive heart disease with heart failure; J43.0 Unilateral pulmonary emphysema [MacLeod's syndrome]; I27.29 Other secondary pulmonary hypertension; E78.5 Hyperlipidemia, unspecified; M19.90 Unspecified osteoarthritis, unspecified site; J20.9 Acute bronchitis, unspecified; Z99.81 Dependence on supplemental oxygen; Z79.52 Long term (current) use of systemic steroids; Z82.49 Family history of ischemic heart disease and other diseases of the circulatory system; Z87.891 Personal history of nicotine dependence; Z79.51 Long term (current) use of inhaled steroids; Z79.82 Long term (current) use of aspirin
CPT/HCPCS: 36415; 71045; 80048; 83880; 84145; 84484; 85007; 85025; 85379; 85610; 85730; 87040; 87804; 93005; 94640; 94760; 96365; 96375; J0456; J0690; J2930; J3010; J7030; J7512; J7613; J7620; 97116; 99285-25

== ENCOUNTER 2018-02-08 03:52 | Emergency (ER) | payer MEDICARE, MEDICAID ==
[~2018-02-08] VITALS: Ht 180.3 cm; Wt 77.1 kg
[~2018-02-08 03:52] MED LIST changes: +ALBU2.5V8 INH; +ALPR0.5T PO; -HYDR-2758 PO; +HYDR-2761 PO; +HYDR-2765 PO; +NYST100054 SWSW; -OXYC-323 PO; +OXYC1TAB15 PO; +POTA20TA82 PO; -PROAIR HFA8.5 GM INH
[2018-02-08] MEDS ORDERED: IV NORMAL SALINE 1000ML BAG 1,000 ML IV SCH (04:03)
[2018-02-08 04:14] LABS: BASO % 0 % (0-3); EOS % 0 % (0-3); HEMATOCRIT 39.9 % (39.0-53.0); HEMOGLOBIN 14.1 g/dL (13.0-17.5); LYMPH # 0.4 x10^3/uL (1.0-4.8); LYMPH % 5 % (24-48); MEAN CORPUSCULAR HEMOGLOBIN 32 pg (25-35); MEAN CORPUSCULAR HGB CONC 35 g/dL (31-37); MEAN CORPUSCULAR VOLUME 89 fL (79-100); MONO # 0.4 x10^3/uL (0.0-1.1); MONO % 5 % (0-9); NEUT # 7.3 x10^3uL (1.8-7.7); NEUT % 90 % (31-73); PLATELET COUNT 168 x10^3/uL (140-400); RED BLOOD COUNT 4.47 x10^6/uL (4.30-5.70); RED CELL DISTRIBUTION WIDTH 15.5 % (11.5-14.5); WHITE BLOOD COUNT 8.2 x10^3/uL (4.0-11.0)
[2018-02-08] MEDS ORDERED: IPRATRPIUM/ALBUTEROL 0.5/2.5MG 3 ML NEBU. NEB ONE (04:15)
[2018-02-08] MEDS ORDERED: methylPREDNISolone SOD SUCC PF 125 MG/2 ML VIAL. IV ONE (04:15)
--- NOTE | 2018-02-08 04:21 | PHYS DOC ---
Past Medical History Past Medical History: Anxiety, Bronchitis, CHF, COPD, Lung Disease, Other Additional Past Medical Histor: EMPHYSEMA-on 3 L NC, PREDIABETIC Past Surgical History: Other Additional Past Surgical Histo: INGUINAL HERNIA REPAIR X2 Alcohol Use: None Drug Use: None Adult General Chief Complaint Chief Complaint: DIFFICULTY SWALLOWING HPI HPI Patient is a 57-year-old male, who is familiar to me from an ER visit earlier this week, who presents to the emergency room for evaluation. He states he awakened, and began having some shortness of breath as well as some inability to swallow some water. This has been a recurrent problem with the patient, in terms of his difficulty with swallowing, which has been previously evaluated during his recent hospital stay here, notes have been reviewed. The patient was found to be wheezing by EMS who administered a DuoNeb. The patient does report some pleuritic left-sided chest discomfort. He has been evaluated several times for pulmonary embolism in the past. He is noted to be tachycardic, but this is somewhat of a typical presentation for the patient. He does have apparent anxiety issues as well. There are no alleviating or exacerbating factors to the patient's symptoms otherwise, except that deep breathing seems to worsen his left-sided chest discomfort. Review of Systems Review of Systems Constitutional: Denies fever or chills [] Eyes: Denies change in visual acuity, redness, or eye pain [] HENT: Denies nasal congestion or sore throat [] Respiratory: No additional information not addressed in HPI [] Cardiovascular: No additional information not addressed in HPI [] GI: Denies abdominal pain, nausea, vomiting, bloody stools or diarrhea. Does report difficulty swallowing. [] : Denies dysuria or hematuria [] Musculoskeletal: Denies back pain or joint pain [] Integument: Denies rash or skin lesions [] Neurologic: Denies headache, focal weakness or sensory changes [] Endocrine: Denies polyuria or polydipsia [] All other systems were reviewed and found to be within normal limits, except as documented in this note. Current Medications Current Medications Current Medications Medications (Trade) Dose Ordered Sig/Candy Start Time Stop Time Status Last Admin Dose Admin Albuterol/ Ipratropium (Duoneb) 3 ml 1X ONCE 02/08/18 04:15 02/08/18 04:16 DC 02/08/18 04:22 3 ML Lorazepam (Ativan) 1 mg 1X ONCE 02/08/18 04:15 02/08/18 04:16 DC 02/08/18 04:22 1 MG Methylprednisolone Sodium Succinate (SOLU-Medrol 125MG VIAL) 125 mg 1X ONCE 02/08/18 04:15 02/08/18 04:16 DC 02/08/18 04:22 125 MG Sodium Chloride 1,000 ml @ 1,000 mls/hr Q1H 02/08/18 04:03 02/08/18 05:02 DC 02/08/18 04:22 1,000 MLS/HR Allergies Allergies Allergies Coded Allergies Type Severity Reaction Last Updated Verified acetaminophen Allergy Intermediate TAKES NORCO AT HOME 01/29/18 Yes aspirin Allergy Intermediate 01/29/18 Yes Physical Exam Physical Exam PHYSICAL EXAM: CONSTITUTIONAL: Well developed, well nourished HEAD: normocephalic, atraumatic EENT: PERRL, EOMI. Conjunctivae normal color, sclerae non-icteric; moist mucous membranes. The oropharynx is normal, without any edema or abnormality or airway obstruction. NECK: Supple, non-tender; no meningismus. LUNGS: There are globally diminished breath sounds in all lung lira, with mild scattered wheezes, there is symmetrical chest rise. HEART: Regular tachycardia, no murmur CHEST: No deformity; non-tender ABDOMEN: The abdomen is soft, and non-tender, no masses or bruits. EXTREM: Normal ROM; no deformity, no calf tenderness. Normal pulses palpable in all extremities. There is no pedal edema. SKIN: No rash; no diaphoresis NEURO: Alert; normal speech and cognition; CN's grossly intact; strength grossly intact without focal deficit. BACK: No CVA TTP. PSYCHIATRIC: Patient does exhibit an anxious affect. Current Patient Data Vital Signs Vital Signs Date Time Temp Pulse Resp B/P (MAP) Pulse Ox O2 Delivery O2 Flow Rate FiO2 02/08/18 04:54 112 20 133/93 (106) 97 Nasal Cannula 3.0 02/08/18 03:52 98.6 98.6 Lab Values Laboratory Tests Test 02/08/18 04:02 White Blood Count 8.2 x10^3/uL (4.0-11.0) Red Blood Count 4.47 x10^6/uL (4.30-5.70) Hemoglobin 14.1 g/dL (13.0-17.5) Hematocrit 39.9 % (39.0-53.0) Mean Corpuscular Volume 89 fL (79-100) Mean Corpuscular Hemoglobin 32 pg (25-35) Mean Corpuscular Hemoglobin Concent 35 g/dL (31-37) Red Cell Distribution Width 15.5 % (11.5-14.5) H Platelet Count 168 x10^3/uL (140-400) Neutrophils (%) (Auto) 90 % (31-73) H Lymphocytes (%) (Auto) 5 % (24-48) L Monocytes (%) (Auto) 5 % (0-9) Eosinophils (%) (Auto) 0 % (0-3) Basophils (%) (Auto) 0 % (0-3) Neutrophils # (Auto) 7.3 x10^3uL (1.8-7.7) Lymphocytes # (Auto) 0.4 x10^3/uL (1.0-4.8) L Monocytes # (Auto) 0.4 x10^3/uL (0.0-1.1) Eosinophils # (Auto) 0.0 x10^3/uL (0.0-0.7) Basophils # (Auto) 0.0 x10^3/uL (0.0-0.2) Segmented Neutrophils % 87 % (35-66) H Lymphocytes % 10 % (24-48) L Monocytes % 3 % (0-10) Platelet Estimate Adequate (ADEQUATE) Sodium Level 138 mmol/L (136-145) Potassium Level 4.2 mmol/L (3.5-5.1) Chloride Level 97 mmol/L (98-107) L Carbon Dioxide Level 31 mmol/L (21-32) Anion Gap 10 (6-14) Blood Urea Nitrogen 17 mg/dL (8-26) Creatinine 1.5 mg/dL (0.7-1.3) H Estimated GFR (Cockcroft-Gault) 58.2 BUN/Creatinine Ratio 11 (6-20) Glucose Level 129 mg/dL (70-99) H Calcium Level 9.6 mg/dL (8.5-10.1) Magnesium Level 1.8 mg/dL (1.8-2.4) Total Bilirubin 1.1 mg/dL (0.2-1.0) H Aspartate Amino Transferase (AST) 27 U/L (15-37) Alanine Aminotransferase (ALT) 41 U/L (16-63) Alkaline Phosphatase 74 U/L (46-116) Creatine Kinase 228 U/L (39-308) Creatine Kinase MB (Mass) 3.2 ng/mL (0.0-3.6) Creatine Kinase MB Relative Index 1.4 % (0-4) Troponin I Quantitative < 0.017 ng/mL (0.000-0.055) UN-Nyq-N-Type Natriuretic Peptide 33 pg/mL (0-124) Total Protein 7.3 g/dL (6.4-8.2) Albumin 3.6 g/dL (3.4-5.0) Albumin/Globulin Ratio 1.0 (1.0-1.7) Laboratory Tests 02/08/18 04:02 Laboratory Tests 02/08/18 04:02 EKG EKG [Sinus tachycardia at a rate of 113 beats for minute, borderline left axis deviation, occasional APCs, there are no acute ischemic ST/T changes.] Radiology/Procedures Radiology/Procedures [PROCEDURE: PORTABLE CHEST 1V AP portable chest 02/08/2018. Reason for exam: Shortness of breath. COPD. Comparison is made with a study of 01/29/2018. The lungs remain hyperinflated. Lucency on the left is consistent with emphysema. There are crowded basilar markings. No new infiltrate is seen. There is less evidence of subpulmonic fluid. The heart is not grossly enlarged. There is a healed or healing posterior right eighth rib fracture. IMPRESSION: COPD. No acute findings. ] Course & Med Decision Making Course & Med Decision Making Pertinent Labs and Imaging studies reviewed. (See chart for details) [5:35 AM: The patient's condition remained stable. His heart rate is in the 90s , his breath sounds have improved. Unfortunate, he did not follow up with Dr. Cook as instructed during his last visit. He states he was itching in between. I discussed importance of close follow-up and return precautions. I will not refill the patient's anxiety medication during this visit.]Patient states she is currently on a steroid taper. The patient does have beta agonist at home, both inhaler and nebulizer. Dragon Disclaimer Dragon Disclaimer This electronic medical record was generated, in whole or in part, using a voice recognition dictation system. Departure Departure Impression: Primary Impression: COPD with exacerbation Disposition: 01 HOME, SELF-CARE Condition: STABLE Referrals: UNKNOWN PCP NAME (PCP) SCOTT COOK MD Patient Instructions: Anxiety and Panic Attacks, Chronic Obstructive Pulmonary Disease SHAYY GRIFFITH MD Feb 08, 2018 04:21
[2018-02-08 04:24] LABS: CALCIUM 9.6 mg/dL (8.5-10.1); CREATININE 1.5 mg/dL (0.7-1.3); GFR 58.2; POTASSIUM 4.2 mmol/L (3.5-5.1)
[2018-02-08 04:29] LABS: ALBUMIN 3.6 g/dL (3.4-5.0); MAGNESIUM 1.8 mg/dL (1.8-2.4); TOTAL BILIRUBIN 1.1 mg/dL (0.2-1.0); TOTAL PROTEIN 7.3 g/dL (6.4-8.2)
[2018-02-08 04:54] VITALS: BP 133/93
--- NOTE | 2018-02-08 04:56 | RAD ---
AP portable chest 02/08/2018. Reason for exam: Shortness of breath. COPD. Comparison is made with a study of 01/29/2018. The lungs remain hyperinflated. Lucency on the left is consistent with emphysema. There are crowded basilar markings. No new infiltrate is seen. There is less evidence of subpulmonic fluid. The heart is not grossly enlarged. There is a healed or healing posterior right eighth rib fracture. IMPRESSION: COPD. No acute findings. Electronically signed by: Evens Sigala Jr., MD (02/08/2018 4:52 AM) [facility]
[2018-02-08 04:58] LABS: % LYMPHS 10 % (24-48); % MONOS 3 % (0-10); % SEGS 87 % (35-66); PLT ESTIMATE ADEQUATE (ADEQUATE)
--- NOTE | 2018-02-08 06:22 | EKG ---
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 Electronically Signed On 02-13-2018 15:11:51 OIL PROSPECTING OBSERVER by Evens Jain
[2018-02-14] MEDS ORDERED: METO10TA81 PO (14:37)
[2018-02-14] MEDS ORDERED: DOXY100C14 PO (14:42)
== END 2018-02-08 05:40 | disposition home or self-care (01) ==
LOC: ER 03:52
DX: J44.1 Chronic obstructive pulmonary disease with (acute) exacerbation (principal); F41.9 Anxiety disorder, unspecified; I50.9 Heart failure, unspecified; R00.0 Tachycardia, unspecified; Z88.6 Allergy status to analgesic agent; Z88.8 Allergy status to other drugs, medicaments and biological substances
CPT/HCPCS: 36415; 71045; 80053; 82553; 83735; 83880; 84484; 85007; 85025; 93005; 94640; 96374; 96375; 99284; J2060; J2930; J7030; J7620

== ENCOUNTER 2018-03-07 20:48 | Emergency (ER) | payer MEDICARE, MEDICAID ==
[~2018-03-07] VITALS: Ht 180.3 cm; Wt 69.4 kg
[~2018-03-07 20:48] MED LIST changes: +DOXY100C14 PO; +METO10TA81 PO
[2018-03-07] MEDS ORDERED: IPRATRPIUM/ALBUTEROL 0.5/2.5MG 3 ML NEBU. NEB ONE (21:15)
[2018-03-07] MEDS ORDERED: methylPREDNISolone SOD SUCC PF 125 MG/2 ML VIAL. IM ONE (21:30)
--- NOTE | 2018-03-07 23:22 | PHYS DOC ---
Past Medical History Past Medical History: Anxiety, Bronchitis, CHF, COPD, Lung Disease, Other Additional Past Medical Histor: EMPHYSEMA-on 3 L NC, PREDIABETIC Past Surgical History: Other Additional Past Surgical Histo: INGUINAL HERNIA REPAIR X2 Alcohol Use: None Drug Use: None Adult General Chief Complaint Chief Complaint: DIFFICULTY SWALLOWING HPI HPI Patient is a 57 year old male who presents with anxiety and some perceived difficulty with swallowing. Patient was recently admitted for similar symptoms. He is on hospice for end-stage COPD. He also has a known anxiety.Today ,he presents to the ER c/o difficulty swallowing 2/2 copious secretions. He has been recently treated for thrush which has caused some irritation of his upper airway and esophagus. At baseline, he does have known GERD. Patient was discharged from this hospital yesterday for similar presentation. He does not have chest pain. He uses 3 L of oxygen at baseline. He does not endorse worsening dyspnea compared to baseline. The patient has been compliant with all medications. Review of Systems Review of Systems Constitutional: Denies fever or chills Eyes: Denies change in visual acuity, redness HENT: Denies nasal congestion o Respiratory: Denies cough or shortness of breath Cardiovascular: No additional information not addressed in HPI GI: Denies nausea or emesis Musculoskeletal: Denies back pain Integument: Denies rash or skin lesions Neurologic: Denies focal neurologic complaints All other systems were reviewed and found to be within normal limits, except as documented in this note. Current Medications Current Medications Current Medications Medications (Trade) Dose Ordered Sig/Candy Start Time Stop Time Status Last Admin Dose Admin Albuterol/ Ipratropium (Duoneb) 3 ml 1X ONCE 03/08/18 01:15 03/08/18 01:16 DC Lorazepam (Ativan) 2 mg 1X ONCE 03/07/18 21:15 03/07/18 21:16 DC 03/07/18 21:31 2 MG Methylprednisolone Sodium Succinate (SOLU-Medrol 125MG VIAL) 125 mg 1X ONCE 03/07/18 21:30 03/07/18 21:31 DC 03/07/18 21:31 125 MG Allergies Allergies Allergies Coded Allergies Type Severity Reaction Last Updated Verified acetaminophen Allergy Intermediate TAKES NORCO AT HOME 01/29/18 Yes Physical Exam Physical Exam Constitutional: Well developed, well nourished, no acute distress, non-toxic appearance HENT: Normocephalic, atraumatic, bilateral external ears normal, oropharynx moist, some erythema in oral pharynx but no swelling of lips, tongue, posterior oral pharynx Eyes: PERRLA, EOMI Neck: Normal range of motion, no tenderness, no JVD Cardiovascular:Heart rate regular rhythm, Lungs & Thorax: few scattered wheezes but good air movement in all lira Abdomen: Bowel sounds normal, soft, no tenderness Skin: Warm, dry, no erythema Extremities: No tenderness, no edema Neurologic: Alert and oriented X 3 Psychologic: Patient is extremely anxious Current Patient Data Vital Signs Vital Signs Date Time Temp Pulse Resp B/P (MAP) Pulse Ox O2 Delivery O2 Flow Rate FiO2 03/08/18 01:28 98 Nasal Cannula 4.0 03/07/18 20:48 98.6 138 23 155/104 (121) 98.6 EKG EKG [] Radiology/Procedures Radiology/Procedures [] Course & Med Decision Making Course & Med Decision Making Pertinent Labs and Imaging studies reviewed. (See chart for details) ED summary: Patient arrives to the ER with acute anxiety and has increased work of breathing that is out of proportion to his physical exam. The examination of his oral pharynx does not reveal any acute findings that would cause his symptoms. His lungs are minimally wheezy but most likely baseline for this patient. He has preserved air movement in all lira. Patient is gagging and coughing a lot on a lot of secretions that he is coughing up. Patient is primarily requesting medication for anxiety on arrival to the ER. He was given 2 mg of Ativan intramuscularly. I did review his electronic medical record and he did have a CT soft tissue of the neck about one month earlier that was suspicious for some inflammation of the esophagus. In the ER this evening, CT was repeated and there were no new findings. He continued to have similar findings but they were stable. Following a dose of a van, the patient's symptoms completely resolved. He was given 1 DuoNeb treatment in the ER on arrival. He was given an additional treatment prior to discharge. He was also given 125 mg of Solu-Medrol early in the ER course and case he indeed did cuff turner to have some sort of acute swelling in the airway or esophagus. This was not the case. Patient was in the emergency department for an extended. Of time due to some delay in getting imaging back but the patient warranted close observation. At the time of discharge, the patient had baseline vital signs. He had good air movement in all lira. He had no distress. He was agreeable to the plan of care. He was provided transport to home and encouraged to come back to the ER for any new or worsening symptoms. Dragon Disclaimer Dragon Disclaimer This electronic medical record was generated, in whole or in part, using a voice recognition dictation system. Departure Departure Disposition: 01 HOME, SELF-CARE Condition: GOOD Referrals: UNKNOWN PCP NAME (PCP) ACE BARRY DO Mar 07, 2018 23:22
--- NOTE | 2018-03-08 00:07 | RAD ---
Examination: CT SOFT TISSUE NECK WO CONTRST History: SWELLING TO THROAT; PREVIOUS STUDY X 1 MONTH AGO Comparison/Correlation: None Findings: Axial images of the neck were obtained without contrast. Sagittal and coronal reformatted images were provided. Fluid level in the right maxillary sinus is moderate size. Mucosal thickening and partial opacification. Small left maxillary sinus fluid level. Parotid and submandibular glands are unremarkable. No inflammatory changes about the pharynx. True and false cords are symmetric. Thyroid gland is unremarkable. Inflammatory changes about the superior thoracic esophagus noted. No enlarged lymph nodes identified. Significant degenerative disc space narrowing of the cervical spine multiple levels evident. Prevertebral soft tissues are unremarkable. Visualized trachea is unremarkable. Severe bullous emphysematous involvement of the lung lira noted greater on the left. Impression: Inflammatory findings about the superior thoracic esophagus. Correlate for underlying esophagitis or neoplastic process. Consider correlation with direct visualization. Significant emphysematous involvement of the upper lung lira. This is especially evident on the left. Consider two-view chest x-ray exam when able for more complete assessment. Acute bilateral maxillary sinusitis. Chronic sinusitis also seen. Electronically signed by: Carlos Lorenzana MD (03/08/2018 12:02 AM) [facility]
[2018-03-08 00:53] VITALS: BP 139/86
[2018-03-08] MEDS ORDERED: IPRATRPIUM/ALBUTEROL 0.5/2.5MG 3 ML NEBU. NEB ONE ×2 (01:15)
[2018-05-30] MEDS ORDERED: AMOX1TAB11 PO (16:45)
[2018-05-30] MEDS ORDERED: ACET325T9 PO (16:45)
[2018-05-30] MEDS ORDERED: GUAI100L12 PO (16:45)
[2018-05-30] MEDS ORDERED: MAG30ORA2 PO (16:45)
[2018-05-30] MEDS ORDERED: DOCU-109 PO (16:45)
[2018-08-07] MEDS ORDERED: DOXY100T PO (11:45)
[2018-08-07] MEDS ORDERED: PRED2.5T PO (11:45)
[2018-08-07] MEDS ORDERED: PRED50TA PO (11:45)
[2018-08-07] MEDS ORDERED: PRED20TA PO (11:45)
[2018-08-07] MEDS ORDERED: TRAM1TAB4 PO (13:45)
[2018-08-25] MEDS ORDERED: METH40VI IJ (23:10)
[2018-08-25] MEDS ORDERED: ALBU2.5V5 NEB (23:10)
[2018-08-25] MEDS ORDERED: BUDE0.253 NEB (23:10)
[2018-08-28] MEDS ORDERED: INSU100I11 SQ (12:31)
[2018-08-28] MEDS ORDERED: ASPI-612 PO (12:31)
[2018-08-28] MEDS ORDERED: DILT30TA26 PO (12:31)
[2018-09-09] MEDS ORDERED: TIZA4TAB2 PO (14:18)
[2018-09-09] MEDS ORDERED: METF500T16 PO (14:18)
[2018-09-09] MEDS ORDERED: AZIT500T4 PO (14:18)
[2018-09-09] MEDS ORDERED: RIVA20TA2 PO (14:18)
[2018-09-11] MEDS ORDERED: LORA-434 PO (09:14)
[2018-09-11] MEDS ORDERED: LIDO700A21 TP (10:58)
== END 2018-03-08 03:05 | disposition home or self-care (01) ==
LOC: ER 20:48
DX: F41.9 Anxiety disorder, unspecified (principal); R13.10 Dysphagia, unspecified; J43.9 Emphysema, unspecified; Z86.79 Personal history of other diseases of the circulatory system; K21.9 Gastro-esophageal reflux disease without esophagitis; Z98.890 Other specified postprocedural states; Z88.6 Allergy status to analgesic agent
CPT/HCPCS: 70490; 94640; 96372; 99284; J2060; J2930; J7620

== ENCOUNTER 2018-03-15 12:40 | Inpatient (IN) | payer MEDICARE, MEDICAID ==
[~2018-03-15] VITALS: Ht 180.3 cm; Wt 71.8 kg
[2018-03-15] MEDS ORDERED: ASPIRIN 325 MG TABLET PO ONE (13:30)
[2018-03-15] MEDS ORDERED: IV NORMAL SALINE 1000ML BAG 1,000 ML IV ONE (13:30)
--- NOTE | 2018-03-15 13:31 | PHYS DOC ---
Past Medical History Past Medical History: Anxiety, Bronchitis, CHF, COPD, High Cholesterol, Hypertension, Lung Disease, Other Additional Past Medical Histor: EMPHYSEMA-on 3 L NC, PREDIABETIC Past Surgical History: Other Additional Past Surgical Histo: INGUINAL HERNIA REPAIR X2 Smoking: Quit Greater Than 1 Year Alcohol Use: None Drug Use: None Adult General Chief Complaint Chief Complaint: SHORTNESS OF BREATH HPI HPI Patient is a 57 YO M that is presenting with one day of increasing shortness of breath and increased sputum production. Patient reports that he was discharged from [facility] on Sunday with COPD exacerbation and viral respiratory infection. He says that he was feeling better when he was discharge but yesterday he got much worse, he reports subjective fevers, increased sputum production, increased SOB, and chest pain on coughing. He denies sick contacts, nausea, vomiting, and heart palpitations. He reports that he is on 3L of oxygen all the time at home. Patient denies trauma. Review of Systems Review of Systems Constitutional: Reports subjective fever and chills [] Eyes: Denies change in visual acuity, redness, or eye pain [] HENT: Denies nasal congestion or sore throat [] Respiratory: Reports cough and shortness of breath [] Cardiovascular: Reports chest pain on coughing and denies palpitations [] GI: Denies abdominal pain, nausea, vomiting, or diarrhea [] : Denies dysuria or hematuria [] Integument: Denies rash or skin lesions [] Neurologic: Denies headache, focal weakness or sensory changes [] Complete systems were reviewed and found to be within normal limits, except as documented in this note. Current Medications Current Medications Current Medications Medications (Trade) Dose Ordered Sig/Candy Start Time Stop Time Status Last Admin Dose Admin Albuterol Sulfate (Ventolin Neb Soln) 2.5 mg PRN Q4HRS PRN 03/15/18 17:30 Albuterol/ Ipratropium (Duoneb) 3 ml RTQID 03/15/18 20:00 Alprazolam (Xanax) 0.5 mg BID 03/15/18 21:00 Aspirin (Billy Aspirin) 325 mg 1X ONCE 03/15/18 13:30 03/15/18 13:31 DC 03/15/18 13:51 325 MG Aspirin (Ecotrin) 81 mg DAILY 03/16/18 09:00 UNV Atorvastatin Calcium (Lipitor) 10 mg HS 03/15/18 21:00 UNV Dexamethasone Sodium Phosphate (Decadron) 10 mg 1X ONCE 03/15/18 16:00 03/15/18 16:01 DC 03/15/18 16:16 10 MG Diphenhydramine HCl (Benadryl) 25 mg PRN QHS PRN 03/15/18 17:30 Furosemide (Lasix) 20 mg DAILY 03/16/18 09:00 UNV Guaifenesin (Robitussin Dm) 10 ml PRN Q6HRS PRN 03/15/18 17:30 Info (CONTRAST GIVEN -- Rx MONITORING) 1 each PRN DAILY PRN 03/15/18 14:45 03/17/18 14:44 Iohexol (Omnipaque 350 Mg/ml) 90 ml 1X ONCE 03/15/18 14:45 03/15/18 14:46 DC 03/15/18 14:57 90 ML Lactulose (Lactulose) 20 gm DAILY 03/16/18 09:00 UNV Levofloxacin/ Dextrose 150 ml @ 100 mls/hr 1X ONCE 03/15/18 17:30 03/15/18 18:59 Magnesium Sulfate 50 ml @ 25 mls/hr 1X ONCE 03/15/18 17:30 03/15/18 19:29 Magnesium Sulfate/ Dextrose 100 ml @ 100 mls/hr 1X ONCE 03/15/18 17:30 03/15/18 18:29 Methylprednisolone Sodium Succinate (SOLU-Medrol 40MG VIAL) 40 mg Q8HRS 03/15/18 22:00 Metoclopramide HCl (Reglan) 5 mg QID 03/15/18 21:00 UNV Nicotine (Nicoderm Cq 21mg) 1 patch PRN DAILY PRN 03/15/18 17:30 UNV Non-Formulary Medication (Budesonide/ Formoterol Fumarate (Symbicort 160-4.5 Mcg Inhaler)) 2 puff BID 03/15/18 21:00 UNV Non-Formulary Medication (Fluticasone Propionate (Flonase Allergy Relief)) 2 sprays DAILY 03/16/18 09:00 UNV Non-Formulary Medication (Guaifenesin/ Codeine Phosphate (Guaifenesin-Codeine Syrup)) 5 ml Q6HRS 03/15/18 18:00 UNV Non-Formulary Medication (Nystatin ) 5 ml [id number] 03/15/18 21:00 UNV Non-Formulary Medication (Pantoprazole Sodium (Protonix)) 1 tab DAILY 03/16/18 09:00 UNV Non-Formulary Medication (Tiotropium [place] (Spiriva)) 2 inh DAILY 03/16/18 09:00 UNV Potassium Chloride (Klor-Con) 20 meq [id number] 03/16/18 08:00 UNV Sodium Chloride 1,000 ml @ 1,000 mls/hr 1X ONCE 03/15/18 13:30 03/15/18 14:29 DC 03/15/18 13:48 1,000 MLS/HR Allergies Allergies Allergies Coded Allergies Type Severity Reaction Last Updated Verified acetaminophen Allergy Intermediate TAKES NORCO AT HOME 01/29/18 Yes Physical Exam Physical Exam Constitutional: Well developed, well nourished, no acute distress, non-toxic appearance. [] HENT: Normocephalic, atraumatic, nose normal. [] Eyes: Conjunctiva normal, no discharge. [] Neck: Normal range of motion, no tenderness, supple. [] Cardiovascular: Heart rate regular rhythm, no murmur [] Lungs & Thorax: Bilateral wheezing, no crackles [] Abdomen: Soft, no tenderness. [] Skin: Warm, dry, no erythema, no rash. [] Extremities: No tenderness, 2+ pitting edema. [] Neurologic: Alert and oriented X 3, no focal deficits noted. [] Psychologic: Affect normal, judgement normal, mood normal. [] Current Patient Data Vital Signs Vital Signs Date Time Temp Pulse Resp B/P (MAP) Pulse Ox O2 Delivery O2 Flow Rate FiO2 03/15/18 16:38 80 18 124/80 (95) 100 Nasal Cannula 3.0 03/15/18 12:41 99.5 99.5 Lab Values Laboratory Tests Test 03/15/18 13:33 03/15/18 13:50 White Blood Count 6.9 x10^3/uL (4.0-11.0) Red Blood Count 3.83 x10^6/uL (4.30-5.70) L Hemoglobin 11.6 g/dL (13.0-17.5) L Hematocrit 34.3 % (39.0-53.0) L Mean Corpuscular Volume 90 fL (79-100) Mean Corpuscular Hemoglobin 30 pg (25-35) Mean Corpuscular Hemoglobin Concent 34 g/dL (31-37) Red Cell Distribution Width 15.6 % (11.5-14.5) H Platelet Count 160 x10^3/uL (140-400) Neutrophils (%) (Auto) 97 % (31-73) H Lymphocytes (%) (Auto) 2 % (24-48) L Monocytes (%) (Auto) 2 % (0-9) Eosinophils (%) (Auto) 0 % (0-3) Basophils (%) (Auto) 0 % (0-3) Neutrophils # (Auto) 6.6 x10^3uL (1.8-7.7) Lymphocytes # (Auto) 0.1 x10^3/uL (1.0-4.8) L Monocytes # (Auto) 0.1 x10^3/uL (0.0-1.1) Eosinophils # (Auto) 0.0 x10^3/uL (0.0-0.7) Basophils # (Auto) 0.0 x10^3/uL (0.0-0.2) Segmented Neutrophils % 95 % (35-66) H Band Neutrophils % 1 % (0-9) Lymphocytes % 3 % (24-48) L Monocytes % 1 % (0-10) Platelet Estimate Adequate (ADEQUATE) Sodium Level 139 mmol/L (136-145) Potassium Level 3.1 mmol/L (3.5-5.1) L Chloride Level 99 mmol/L (98-107) Carbon Dioxide Level 31 mmol/L (21-32) Anion Gap 9 (6-14) Blood Urea Nitrogen 12 mg/dL (8-26) Creatinine 1.0 mg/dL (0.7-1.3) Estimated GFR (Cockcroft-Gault) 92.9 BUN/Creatinine Ratio 12 (6-20) Glucose Level 148 mg/dL (70-99) H Calcium Level 9.3 mg/dL (8.5-10.1) Magnesium Level 1.7 mg/dL (1.8-2.4) L Total Bilirubin 0.8 mg/dL (0.2-1.0) Aspartate Amino Transferase (AST) 23 U/L (15-37) Alanine Aminotransferase (ALT) 37 U/L (16-63) Alkaline Phosphatase 68 U/L (46-116) Creatine Kinase 138 U/L (39-308) Creatine Kinase MB (Mass) 1.7 ng/mL (0.0-3.6) Creatine Kinase MB Relative Index 1.2 % (0-4) Troponin I Quantitative < 0.017 ng/mL (0.000-0.055) TV-Bsc-G-Type Natriuretic Peptide 127 pg/mL (0-124) H Total Protein 6.4 g/dL (6.4-8.2) Albumin 3.3 g/dL (3.4-5.0) L Albumin/Globulin Ratio 1.1 (1.0-1.7) Influenza Type A Antigen Negative (NEGATIVE) Influenza Type B Antigen Negative (NEGATIVE) Laboratory Tests 03/15/18 13:33 Laboratory Tests 03/15/18 13:33 EKG EKG @1301 sinus tachycardia at 105 BPM, premature atrial complexes, QRS contour abnormality, no ST elevation Radiology/Procedures Radiology/Procedures PROCEDURE: CT ANGIOGRAPHY CHEST CTA chest with contrast dated 03/15/2018. Comparison made to 01/13/2018. CLINICAL INDICATION: Dyspnea. Possible pulmonary embolus. TECHNIQUE: Per contiguous axial imaging of the chest performed following the intravenous administration of 90 cc Omnipaque 350. Study was performed as dedicated PE protocol with thin cut coronal MIPS 3-D reconstruction. One or more of the following individualized dose reduction techniques were utilized for this examination: 1. Automated exposure control 2. Adjustment of the mA and/or kV according to patient size 3. Use of iterative reconstruction technique. FINDINGS: Study is limited due to motion artifact. Contrast bolus is adequate. There is no evidence of central, lobar or proximal segmental pulmonary embolus. The distal segmental and subsegmental branches are not well evaluated based on technique. Heart size is within normal limits. No significant pericardial effusion. Coronary artery calcifications. No mediastinal, hilar or axillary lymphadenopathy. Thyroid gland unremarkable. Central airways are patent. Severe upper zone emphysema with large bulla at the left apex, unchanged. There is mild patchy groundglass opacity throughout both lungs with reticular nodular densities along the bronchovascular bundle of the lower lobes, similar to slightly improved. No pleural effusion. No pneumothorax. Limited images of the upper abdomen unremarkable. No significant bony abnormality. Multilevel spondylosis. IMPRESSION: 1. Limited exam due to motion artifact. No evidence of central, lobar or proximal segmental pulmonary embolus. The distal segmental and subsegmental branches are not well evaluated. 2. Severe emphysema with large bulla at the left apex, unchanged. 3. Patchy groundglass opacity throughout both lungs with some increasing reticulonodular opacity along the bronchovascular bundles of the lower lobes. Consider infectious or inflammatory processes or chronic aspiration. 4. Coronary artery calcifications. Electronically signed by: Mikael Torres MD (03/15/2018 3:31 PM) [facility] Course & Med Decision Making Course & Med Decision Making Pertinent Labs and Imaging studies reviewed. (See chart for details) Patient is a 57 YO M that is presenting with one day of increasing shortness of breath and increased sputum production. Patient has a past medical history of COPD and CHF and was discharge from [facility] on Sunday with a diagnosis of COPD exacerbation and viral respiratory infection. Labs were obtained and posted to chart. CTA showed no evidence of central, lobar or proximal segmental pulmonary embolus, severe emphysema with large bulla at the left apex, unchanged, and patchy ground glass opacity throughout both lungs with some increasing reticulonodular opacity along the bronchovascular bundles of the lower lobes. EKG was WNL, no ST segment elevation. Initial troponin WNL. Rapid flu negative. Potassium low at 3.1, PO replacement initiated. Breathing treatments and PO steroids given. Magnesium low at 1.7, replacement initiated. Antibiotics added on top of azithromycin to cover for possible pneumonia. Patient requiring admission for further evaluation and treatment. Discussed with Dr. Craft (hospitalist) who is in agreement with admission. Discussed findings and plan with patient and family, who acknowledge understanding and agreement. Dragon Disclaimer Dragon Disclaimer This electronic medical record was generated, in whole or in part, using a voice recognition dictation system. Departure Departure Impression: Primary Impression: COPD with exacerbation Additional Impressions: Hypokalemia Hypomagnesemia Failure of outpatient treatment Disposition: ADMITTED INPATIENT (Med/Surg) Admitting Physician: Em Craft Condition: STABLE Referrals: UNKNOWN PCP NAME (PCP) Problem Qualifiers MIKAEL JONES DO Mar 15, 2018 13:31
[2018-03-15 13:50] LABS: BASO % 0 % (0-3); EOS % 0 % (0-3); HEMATOCRIT 34.3 % (39.0-53.0); HEMOGLOBIN 11.6 g/dL (13.0-17.5); LYMPH # 0.1 x10^3/uL (1.0-4.8); LYMPH % 2 % (24-48); MEAN CORPUSCULAR HEMOGLOBIN 30 pg (25-35); MEAN CORPUSCULAR HGB CONC 34 g/dL (31-37); MEAN CORPUSCULAR VOLUME 90 fL (79-100); MONO # 0.1 x10^3/uL (0.0-1.1); MONO % 2 % (0-9); NEUT # 6.6 x10^3uL (1.8-7.7); NEUT % 97 % (31-73); PLATELET COUNT 160 x10^3/uL (140-400); RED BLOOD COUNT 3.83 x10^6/uL (4.30-5.70); RED CELL DISTRIBUTION WIDTH 15.6 % (11.5-14.5); WHITE BLOOD COUNT 6.9 x10^3/uL (4.0-11.0)
[2018-03-15 14:14] LABS: ALBUMIN 3.3 g/dL (3.4-5.0); ALBUMIN/GLOBULIN RATIO 1.1 (1.0-1.7); CALCIUM 9.3 mg/dL (8.5-10.1); GFR 92.9; MAGNESIUM 1.7 mg/dL (1.8-2.4); TOTAL BILIRUBIN 0.8 mg/dL (0.2-1.0); TOTAL PROTEIN 6.4 g/dL (6.4-8.2)
--- NOTE | 2018-03-15 14:17 | EKG ---
[facility] [address] [place] [address] Test Date: 2018-03-15 Test Time: 13:01:49 Pat Name: KAYLA JONES Department: Room: Gender: [employer] Work[employer]: : 1960 Requested By: BONILLA JONES Order Number: [id number] Reading MD: Evens Jain Measurements Intervals [place] Rate: 105 P: 65 MO: 170 QRS: 58 QRSD: 82 T: 62 QT: 348 QTc: 464 Interpretive Statements SINUS TACHYCARDIA ATRIAL PREMATURE COMPLEX(ES) NONSPECIFIC ST-T WAVE CHANGES Electronically Signed On 03-18-2018 9:49:07 MANAGED CARE LIAISON by Evens Jain
[2018-03-15 14:24] LABS: INFLUENZA A PATIENT NEGATIVE (NEGATIVE); INFLUENZA B PATIENT NEGATIVE (NEGATIVE)
[2018-03-15 14:43] LABS: POTASSIUM 3.1 mmol/L (3.5-5.1)
[2018-03-15] MEDS ORDERED: IOHEXOL 350 MG/ML 100 ML VIAL. IV ONE (14:45)
[2018-03-15] MEDS ORDERED: CONTRAST GIVEN. MC PRN (14:45)
[2018-03-15 15:16] LABS: % BANDS 1 % (0-9); % LYMPHS 3 % (24-48); % MONOS 1 % (0-10); % SEGS 95 % (35-66)
[2018-03-15 15:17] LABS: PLT ESTIMATE ADEQUATE (ADEQUATE)
--- NOTE | 2018-03-15 15:35 | RAD ---
CTA chest with contrast dated 03/15/2018. Comparison made to 01/13/2018. CLINICAL INDICATION: Dyspnea. Possible pulmonary embolus. TECHNIQUE: Per contiguous axial imaging of the chest performed following the intravenous administration of 90 cc Omnipaque 350. Study was performed as dedicated PE protocol with thin cut coronal MIPS 3-D reconstruction. One or more of the following individualized dose reduction techniques were utilized for this examination: 1. Automated exposure control 2. Adjustment of the mA and/or kV according to patient size 3. Use of iterative reconstruction technique. FINDINGS: Study is limited due to motion artifact. Contrast bolus is adequate. There is no evidence of central, lobar or proximal segmental pulmonary embolus. The distal segmental and subsegmental branches are not well evaluated based on technique. Heart size is within normal limits. No significant pericardial effusion. Coronary artery calcifications. No mediastinal, hilar or axillary lymphadenopathy. Thyroid gland unremarkable. Central airways are patent. Severe upper zone emphysema with large bulla at the left apex, unchanged. There is mild patchy groundglass opacity throughout both lungs with reticular nodular densities along the bronchovascular bundle of the lower lobes, similar to slightly improved. No pleural effusion. No pneumothorax. Limited images of the upper abdomen unremarkable. No significant bony abnormality. Multilevel spondylosis. IMPRESSION: 1. Limited exam due to motion artifact. No evidence of central, lobar or proximal segmental pulmonary embolus. The distal segmental and subsegmental branches are not well evaluated. 2. Severe emphysema with large bulla at the left apex, unchanged. 3. Patchy groundglass opacity throughout both lungs with some increasing reticulonodular opacity along the bronchovascular bundles of the lower lobes. Consider infectious or inflammatory processes or chronic aspiration. 4. Coronary artery calcifications. Electronically signed by: Mikael Torres MD (03/15/2018 3:31 PM) [facility]
[2018-03-15] MEDS ORDERED: IPRATRPIUM/ALBUTEROL 0.5/2.5MG 3 ML NEBU. NEB ONE (16:00)
[2018-03-15] MEDS ORDERED: POTASSIUM CHLORIDE 20 MEQ TABLET.ER. PO ONE ×2 (16:00→17:30)
[2018-03-15] MEDS ORDERED: DEXAMETHASONE SOD PHOS 20 MG/5 ML VIAL. IV ONE (16:00)
[2018-03-15] MEDS ORDERED: MAGNESIUM SULFATE 2GM 50 ML IV ONE (17:30)
[2018-03-15] MEDS ORDERED: NICOTINE 21MG PATCH. TD PRN (17:30)
[2018-03-15] MEDS ORDERED: diphenhydrAMINE HCL 25 MG CAPSULE PO PRN (17:30)
[2018-03-15] MEDS ORDERED: ALBUTEROL SULFATE 2.5 MG/3 ML NEBU. NEB PRN (17:30)
[2018-03-15] MEDS ORDERED: guaiFENesin DM 200MG/20MG 10 ML SYRUP PO PRN (17:30)
[2018-03-15] MEDS ORDERED: MAGNESIUM SULFATE 1GM 100 ML IV ONE (17:30)
[2018-03-15] MEDS ORDERED: levOFLOXacin PER PHARMACY. MC PRN (18:15)
[2018-03-15] MEDS ORDERED: guaiFENesin/CODEINE 100mg/10mg 5 ML LIQUID PO PRN (18:45)
[2018-03-15] MEDS ORDERED: IPRATRPIUM/ALBUTEROL 0.5/2.5MG 3 ML NEBU. NEB SCH (20:00)
[2018-03-15] MEDS: IPRATRPIUM/ALBUTEROL 0.5/2.5MG 3 ML NEBU. NEB SCH (20:23)
[2018-03-15] MEDS: BUDESONIDE 0.5 MG/2 ML NEBU. NEB SCH (20:23)
[2018-03-15 20:33] VITALS: BP 107/69
[2018-03-15] MEDS ORDERED: NON FORMULARY ITEM (Budesonide/Formoterol Fumarate (Symbicort 160-4.5 Mcg Inhaler) 2 PUFF) IH SCH (21:00)
[2018-03-15] MEDS ORDERED: CHOL500016 PO (21:33)
[2018-03-15] MEDS ORDERED: ERYT500T17 PO (21:35)
[2018-03-15] MEDS ORDERED: ERYT250T14 PO (21:35)
[2018-03-15] MEDS: METOCLOPRAMIDE 10 MG TABLET. PO SCH (22:14)
[2018-03-15] MEDS: ALPRAZolam 0.5 MG TABLET PO SCH (22:14)
[2018-03-15] MEDS: NYSTATIN 100,000 UNITS/ML 5 ML ORAL.SUSP. SWSW SCH (22:14)
[2018-03-15] MEDS: ATORVASTATIN CALCIUM 10 MG TABLET. PO SCH (22:14)
[2018-03-15] MEDS: methylPREDNISolone SOD SUCC PF 40 MG/ML VIAL. IV SCH (22:14)
[2018-03-15 23:59] VITALS: BP 114/77
[2018-03-16 03:59] VITALS: BP 136/90
[2018-03-16] MEDS: methylPREDNISolone SOD SUCC PF 40 MG/ML VIAL. IV SCH ×3 (05:46→21:03)
[2018-03-16 06:11] LABS: MAGNESIUM 2.5 mg/dL (1.8-2.4); POTASSIUM 4.1 mmol/L (3.5-5.1)
[2018-03-16] MEDS: BUDESONIDE 0.5 MG/2 ML NEBU. NEB SCH ×2 (06:15→20:29)
[2018-03-16] MEDS: IPRATRPIUM/ALBUTEROL 0.5/2.5MG 3 ML NEBU. NEB SCH ×4 (06:15→20:29)
[2018-03-16 07:30] VITALS: BP 118/73
[2018-03-16] MEDS: FLUTICASONE 50MCG/NASAL SPRAY 16GM BOTTLE. NS SCH (08:20)
[2018-03-16] MEDS: METOCLOPRAMIDE 10 MG TABLET. PO SCH ×4 (08:21→21:03)
[2018-03-16] MEDS: PANTOPRAZOLE 40 MG TABLET.DR. PO SCH (08:22)
[2018-03-16] MEDS: POTASSIUM CHLORIDE 20 MEQ TABLET.ER. PO SCH (08:22)
[2018-03-16] MEDS: ASPIRIN ENTERIC COATED 81 MG TABLET.DR. PO SCH (08:22)
[2018-03-16] MEDS: ALPRAZolam 0.5 MG TABLET PO SCH ×2 (08:23→21:03)
[2018-03-16] MEDS: FUROSEMIDE 20 MG TABLET PO SCH (08:23)
[2018-03-16] MEDS: LACTULOSE 20 GM/30 ML SOLUTION. PO SCH (08:24)
[2018-03-16] MEDS: LACTOBACILLUS RHAMNOSUS GG 1 CAPSULE. PO SCH ×2 (08:30→21:03)
[2018-03-16] MEDS: NYSTATIN 100,000 UNITS/ML 5 ML ORAL.SUSP. SWSW SCH ×4 (08:30→21:03)
[2018-03-16] MEDS: traMADol 50 MG TABLET PO PRN ×2 (08:30→16:45)
[2018-03-16] MEDS ORDERED: NON FORMULARY ITEM (Tiotropium Bromide (Spiriva) 2 INH) IH SCH (09:00)
[2018-03-16 11:17] VITALS: BP 111/71
--- NOTE | 2018-03-16 12:23 | HP ---
ADMIT DATE: 03/16/2018 CHIEF COMPLAINT: Shortness of breath. HISTORY OF PRESENT ILLNESS: The patient is a pleasant 57-year-old male who quit smoking 5 years ago, but has end-stage COPD. We just discharged him a week or two ago after being treated for COPD and pneumonia. I guess since then he has been doing reasonably well, but then ended up at [facility] where he was admitted for a while. He was just discharged, I believe yesterday. He came to our ER with increasing fever, shortness of breath, sputum production, cough, rates it at 9/10, has associated weakness. Moving makes it worse. Home meds did not seem to help. I discussed the case with the ER physician. We have admitted the patient. We are consulting Pulmonary. He does have COPD and maybe pneumonia at this time again. PAST MEDICAL HISTORY: Previous bronchitis, pneumonia, chronic obstructive pulmonary disease, tobacco abuse but he quit smoking 5 years ago, anxiety, CHF, hyperlipidemia, hypertension, inguinal hernia x 2. ALLERGIES: TYLENOL. FAMILY HISTORY: Coronary artery disease. SOCIAL HISTORY: He quit smoking 5 years ago. No drinking or drugs. MEDICATIONS: Reviewed, he is on 18 including erythromycin, doxycycline, nystatin, Spiriva, albuterol, atorvastatin, Xanax, lactulose, potassium, Lasix, guaifenesin, fluticasone, Protonix, Reglan, and vitamins. REVIEW OF SYSTEMS: GENERAL: No history of weight change, weakness or fevers. SKIN: No bruising, hair changes or rashes. EYES: No blurred, double or loss of vision. NOSE AND THROAT: No history of nosebleeds, hoarseness or sore throat. HEART: No history of palpitations, chest pain or shortness of breath on exertion. LUNGS: He complains of loss of shortness of breath, cough and sputum production. GASTROINTESTINAL: Denies changes in appetite, nausea, vomiting, diarrhea or constipation. GENITOURINARY: No history of frequency, urgency, hesitancy or nocturia. NEUROLOGIC: Denies history of numbness, tingling, tremor or weakness. PSYCHIATRIC: No history of panic, anxiety or depression. ENDOCRINE: No history of heat or cold intolerance, polyuria or polydipsia. EXTREMITIES: Denies muscle weakness, joint pain, pain on walking or stiffness. PHYSICAL EXAMINATION: VITAL SIGNS: Temperature is afebrile, pulse 98, respirations 18, blood pressure 118/73, O2 sat 99% on 3 liters. GENERAL: He is alert, cooperative, short of breath. HEART: Normal S1, S2. LUNGS: Diminished, but with wheezing. ABDOMEN: Soft, positive bowel sounds. EXTREMITIES: Trace edema. SKIN: No rash. ENDOCRINE: No thyromegaly. LYMPHATICS: No cervical nodes. HEMATOPOIETIC: No bruising. PSYCHIATRIC: He is stable. LABORATORY DATA: Hemoglobin is 11.6, potassium is 3.1. CT of the chest showing possible pneumonia, but no PEs and severe COPD. ASSESSMENT AND PLAN: Severe COPD and probable clinical pneumonia. The patient has been admitted. We will start IV antibiotics, breathing treatments, oxygen, steroids consult Pulmonary. Home meds, PT, OT, frequent labs. PROGNOSIS: Guarded. TAMMY MARKS DO DR: HEATHER/efrain JOB#: [id number] / [id number]
--- NOTE | 2018-03-16 14:13 | PDOC ---
PULMONARY PROGRESS NOTES Vitals Vital Signs Date Time Temp Pulse Resp B/P (MAP) Pulse Ox O2 Delivery O2 Flow Rate FiO2 03/16/18 11:34 Nasal Cannula 3.0 03/16/18 11:17 97.9 82 19 111/71 (84) 97 97.9 General: Alert, No acute distress Lungs: Other Cardiovascular: S1, S2 Abdomen: Soft, Non-tender Extremities: No Edema, Other Labs Laboratory Tests Test 03/15/18 13:33 03/15/18 13:50 03/16/18 00:05 03/16/18 05:20 White Blood Count 6.9 x10^3/uL (4.0-11.0) Red Blood Count 3.83 x10^6/uL (4.30-5.70) Hemoglobin 11.6 g/dL (13.0-17.5) Hematocrit 34.3 % (39.0-53.0) Mean Corpuscular Volume 90 fL (79-100) Mean Corpuscular Hemoglobin 30 pg (25-35) Mean Corpuscular Hemoglobin Concent 34 g/dL (31-37) Red Cell Distribution Width 15.6 % (11.5-14.5) Platelet Count 160 x10^3/uL (140-400) Neutrophils (%) (Auto) 97 % (31-73) Lymphocytes (%) (Auto) 2 % (24-48) Monocytes (%) (Auto) 2 % (0-9) Eosinophils (%) (Auto) 0 % (0-3) Basophils (%) (Auto) 0 % (0-3) Neutrophils # (Auto) 6.6 x10^3uL (1.8-7.7) Lymphocytes # (Auto) 0.1 x10^3/uL (1.0-4.8) Monocytes # (Auto) 0.1 x10^3/uL (0.0-1.1) Eosinophils # (Auto) 0.0 x10^3/uL (0.0-0.7) Basophils # (Auto) 0.0 x10^3/uL (0.0-0.2) Segmented Neutrophils % 95 % (35-66) Band Neutrophils % 1 % (0-9) Lymphocytes % 3 % (24-48) Monocytes % 1 % (0-10) Platelet Estimate Adequate (ADEQUATE) Sodium Level 139 mmol/L (136-145) Potassium Level 3.1 mmol/L (3.5-5.1) 4.1 mmol/L (3.5-5.1) Chloride Level 99 mmol/L (98-107) Carbon Dioxide Level 31 mmol/L (21-32) Anion Gap 9 (6-14) Blood Urea Nitrogen 12 mg/dL (8-26) Creatinine 1.0 mg/dL (0.7-1.3) Estimated GFR (Cockcroft-Gault) 92.9 BUN/Creatinine Ratio 12 (6-20) Glucose Level 148 mg/dL (70-99) Calcium Level 9.3 mg/dL (8.5-10.1) Magnesium Level 1.7 mg/dL (1.8-2.4) 2.5 mg/dL (1.8-2.4) Total Bilirubin 0.8 mg/dL (0.2-1.0) Aspartate Amino Transf (AST/SGOT) 23 U/L (15-37) Alanine Aminotransferase (ALT/SGPT) 37 U/L (16-63) Alkaline Phosphatase 68 U/L (46-116) Creatine Kinase 138 U/L (39-308) Creatine Kinase MB (Mass) 1.7 ng/mL (0.0-3.6) Creatine Kinase MB Relative Index 1.2 % (0-4) Troponin I Quantitative < 0.017 ng/mL (0.000-0.055) < 0.017 ng/mL (0.000-0.055) QJ-Rty-V-Type Natriuretic Peptide 127 pg/mL (0-124) Total Protein 6.4 g/dL (6.4-8.2) Albumin 3.3 g/dL (3.4-5.0) Albumin/Globulin Ratio 1.1 (1.0-1.7) Influenza Type A Antigen Negative (NEGATIVE) Influenza Type B Antigen Negative (NEGATIVE) Laboratory Tests Test 03/16/18 00:05 03/16/18 05:20 Troponin I Quantitative < 0.017 ng/mL (0.000-0.055) Potassium Level 4.1 mmol/L (3.5-5.1) Magnesium Level 2.5 mg/dL (1.8-2.4) Medications Active Scripts Medications Dose Route/Sig Max Daily Dose Days Date Category Erythromycin (Erythromycin Base) 500 Mg Tablet 500 Mg PO DAILY 5 03/15/18 Reported Erythromycin (Erythromycin Base) 250 Mg Tablet 250 Mg PO DAILY 03/15/18 Reported Vitamin D3 (Cholecalciferol (Vitamin D3)) 5,000 Unit Tablet 5,000 Unit PO DAILY 03/15/18 Reported Doxycycline Monohydrate 100 Mg Capsule 1 Cap PO BID 02/14/18 Rx Reglan (Metoclopramide Hcl) 10 Mg Tablet 0.5 Tab PO QID 30 02/14/18 Rx Xanax (Alprazolam) 0.5 Mg Tablet 1 Tab PO BID 02/03/18 Rx Nystatin 100,000 Unit/1 Ml Oral.susp 5 Ml SWSW [id number] 01/31/18 Rx Prednisone 20 Mg Tablet 40 Mg PO DAILY 01/31/18 Rx Potassium Chloride 20 Meq Tablet.er 20 Meq PO DAILY 01/13/18 Reported Protonix (Pantoprazole Sodium) 20 Mg Tablet.dr 1 Tab PO DAILY 11/18/17 Reported Flonase Allergy Relief (Fluticasone Propionate) 9.9 Ml [place].susp 2 Sprays NS DAILY 11/18/17 Reported Guaifenesin-Codeine Syrup (Guaifenesin/Codeine Phosphate) 118 Ml Liquid 5 Ml PO Q6HRS 10/10/17 Rx Furosemide 20 Mg Tablet 1 Tab PO DAILY 09/10/17 Rx Lactulose 20 Gm/30 Ml Solution 20 Gm PO DAILY 08/25/17 Rx Atorvastatin Calcium 10 Mg Tablet 10 Mg PO HS 08/21/17 Reported Albuterol Sulfate Neb Soln (Albuterol Sulfate) 2.5 Mg/3 Ml Vial.neb 1 Vial NEB PRN Q4HRS 07/10/17 Rx Symbicort 160-4.5 Mcg Inhaler (Budesonide/Formoterol Fumarate) 10.2 Gm Hfa.aer.ad 2 Puff IH BID 09/21/15 Reported Spiriva (Tiotropium [place]) 18 Mcg Cap.w.dev 2 Inh IH DAILY 09/21/15 Reported Impression . DICTATED ASPIRATION PNEUMONIA SCOTT COOK MD Mar 16, 2018 14:13
[2018-03-16 14:54] VITALS: BP 104/66
[2018-03-16 19:00] VITALS: BP 133/70
--- NOTE | 2018-03-16 19:44 | CONS ---
DATE OF CONSULTATION: 03/16/2018 ATTENDING PHYSICIAN: Dr. Hathaway. CONSULTING PHYSICIAN: Scott Cook MD. REASON FOR CONSULTATION: The patient is seen in pulmonary consultation at the request of Dr. Hathaway for increasing shortness of air. HISTORY OF PRESENT ILLNESS: The patient is well known to me from previous consultation, a 52-year-old with severe bullous emphysema, end-stage, FEV1 less than 1 liter, chronic oxygen supplementation for chronic respiratory failure, presented with increasing shortness of breath. Apparently, the patient was recently hospitalized at [facility] with RSV, was discharged home. A couple of days after being home, he was more short of breath. He was unable to tolerate activities of daily living, unable to take in a deep breath, wheezing, coughing, mostly nonproductive. No fever, chills, nausea, or vomiting. PAST MEDICAL HISTORY: As indicated above, severe end-stage bullous emphysema, chronic respiratory failure. He has had previous difficulty with esophagitis in the past including Rosanne esophagitis. He has been scoped. He has prior history of tobacco dependence, in remission. Otherwise, anxiety, depression. PAST SURGICAL HISTORY: Status post hernia repair. ALLERGIES: ACETAMINOPHEN. REVIEW OF SYSTEMS: CONSTITUTIONAL: No fever or chills. EYES: No change in visual acuity. HENT: No nasal congestion or sore throat. PULMONARY: As indicated above. CARDIOVASCULAR: No chest pain, no pressure. GASTROINTESTINAL: No nausea, vomiting, or diarrhea. GENITOURINARY: No dysuria or frequency. MUSCULOSKELETAL: No localized muscle aches or joint pain. SKIN: No new skin rashes. NEUROLOGIC: No headaches, diplopia or blurred vision. MEDICATIONS: List was reviewed. SOCIAL HISTORY: He is currently not smoking, denies any alcohol intake. PHYSICAL EXAMINATION: VITAL SIGNS: Stable. O2 saturation was greater than 92%, currently on 3 liters of oxygen supplementation. HEENT: Eyes: The sclerae were nonicteric. NECK: Jugular venous distention was not elevated. No lymphadenopathy. CHEST: Full expansion. LUNGS: Very poor airway flow with no wheezes. CARDIOVASCULAR: Regular rate and rhythm with S1, S2. No S3. ABDOMEN: Soft, nontender, nondistended. EXTREMITIES: No clubbing, cyanosis or edema. LABORATORY DATA: Reviewed. White count was normal. Electrolytes were noted. Serology for influenza was negative. CT angiogram was obtained. There is bilateral infiltrates compatible with aspiration pneumonia. IMPRESSION: 1. Aspiration pneumonia. 2. Acute exacerbation of chronic obstructive pulmonary disease. 3. Acute on chronic respiratory failure. 4. Dysphagia with prior history of Rosanne esophagitis. PLAN: 1. We will initiate continued Levaquin. 2. Discharge home on Augmentin. 3. The patient is to follow up with cardiothoracic surgeon at [facility]. He may be a candidate for bullectomy. I do appreciate the privilege in sharing in patient sharing in the patient's care. SCOTT COOK MD DR: MAVERICK/efrain JOB#: [id number] / [id number]
[2018-03-16] MEDS: ATORVASTATIN CALCIUM 10 MG TABLET. PO SCH (21:03)
[2018-03-16 23:00] VITALS: BP 118/77
[2018-03-17] MEDS: traMADol 50 MG TABLET PO PRN (01:23)
[2018-03-17 03:00] VITALS: BP 130/80
[2018-03-17] MEDS: methylPREDNISolone SOD SUCC PF 40 MG/ML VIAL. IV SCH ×3 (05:31→21:03)
[2018-03-17 07:00] VITALS: BP 99/79
[2018-03-17] MEDS: IPRATRPIUM/ALBUTEROL 0.5/2.5MG 3 ML NEBU. NEB SCH ×4 (07:21→20:25)
[2018-03-17] MEDS: BUDESONIDE 0.5 MG/2 ML NEBU. NEB SCH ×2 (07:21→20:25)
[2018-03-17] MEDS: NYSTATIN 100,000 UNITS/ML 5 ML ORAL.SUSP. SWSW SCH ×4 (08:06→21:03)
[2018-03-17] MEDS: FLUTICASONE 50MCG/NASAL SPRAY 16GM BOTTLE. NS SCH (08:06)
[2018-03-17] MEDS: METOCLOPRAMIDE 10 MG TABLET. PO SCH ×4 (08:07→20:06)
[2018-03-17] MEDS: ASPIRIN ENTERIC COATED 81 MG TABLET.DR. PO SCH (08:07)
[2018-03-17] MEDS: FUROSEMIDE 20 MG TABLET PO SCH (08:07)
[2018-03-17] MEDS: PANTOPRAZOLE 40 MG TABLET.DR. PO SCH (08:07)
[2018-03-17] MEDS: ALPRAZolam 0.5 MG TABLET PO SCH ×2 (08:07→20:06)
[2018-03-17] MEDS: POTASSIUM CHLORIDE 20 MEQ TABLET.ER. PO SCH (08:07)
[2018-03-17] MEDS: LACTOBACILLUS RHAMNOSUS GG 1 CAPSULE. PO SCH ×2 (08:08→20:06)
[2018-03-17] MEDS: LACTULOSE 20 GM/30 ML SOLUTION. PO SCH (08:08)
[2018-03-17 11:00] VITALS: BP 104/58
--- NOTE | 2018-03-17 12:20 | PDOC ---
PROGRESS NOTES Chief Complaint Chief Complaint CC: COPD exacerbation History of Present Illness History of Present Illness Patient was seen and examined. Complains of back pain today. Vitals Vitals Vital Signs Date Time Temp Pulse Resp B/P (MAP) Pulse Ox O2 Delivery O2 Flow Rate FiO2 03/17/18 11:05 99 Nasal Cannula 3.0 03/17/18 11:00 98.5 89 16 104/58 (73) 98.5 Physical Exam General: Alert, Oriented X3, Cooperative, No acute distress Heart: Regular rate Lungs: Wheezing, Other Abdomen: No hepatosplenomegaly, No masses Extremities: No clubbing, No edema Skin: No rashes, No significant lesion Review of Systems Review of Systems Heart: denies chest pain Integument: denies rashes Assessment and Plan Assessmemt and Plan Assessment: 1.Severe COPD 2. probable clinical pneumonia. 4. Hypokalemia 5. Hypomagnesemia Plan: 1. IV antibiotics 2. breathing treatments 3. oxygen, 4. steroids 5. consult Pulmonary. 6. Home meds, 7. PT, OT, 8.frequent labs. 9. Oxycodone prn pain 9. Probable discharge tomorrow Comment Review of Relevant I have reviewed the following items franki (where applicable) has been applied. Labs Laboratory Tests Test 03/15/18 13:33 03/15/18 13:50 03/16/18 00:05 03/16/18 05:20 White Blood Count 6.9 x10^3/uL (4.0-11.0) Red Blood Count 3.83 x10^6/uL (4.30-5.70) Hemoglobin 11.6 g/dL (13.0-17.5) Hematocrit 34.3 % (39.0-53.0) Mean Corpuscular Volume 90 fL (79-100) Mean Corpuscular Hemoglobin 30 pg (25-35) Mean Corpuscular Hemoglobin Concent 34 g/dL (31-37) Red Cell Distribution Width 15.6 % (11.5-14.5) Platelet Count 160 x10^3/uL (140-400) Neutrophils (%) (Auto) 97 % (31-73) Lymphocytes (%) (Auto) 2 % (24-48) Monocytes (%) (Auto) 2 % (0-9) Eosinophils (%) (Auto) 0 % (0-3) Basophils (%) (Auto) 0 % (0-3) Neutrophils # (Auto) 6.6 x10^3uL (1.8-7.7) Lymphocytes # (Auto) 0.1 x10^3/uL (1.0-4.8) Monocytes # (Auto) 0.1 x10^3/uL (0.0-1.1) Eosinophils # (Auto) 0.0 x10^3/uL (0.0-0.7) Basophils # (Auto) 0.0 x10^3/uL (0.0-0.2) Segmented Neutrophils % 95 % (35-66) Band Neutrophils % 1 % (0-9) Lymphocytes % 3 % (24-48) Monocytes % 1 % (0-10) Platelet Estimate Adequate (ADEQUATE) Sodium Level 139 mmol/L (136-145) Potassium Level 3.1 mmol/L (3.5-5.1) 4.1 mmol/L (3.5-5.1) Chloride Level 99 mmol/L (98-107) Carbon Dioxide Level 31 mmol/L (21-32) Anion Gap 9 (6-14) Blood Urea Nitrogen 12 mg/dL (8-26) Creatinine 1.0 mg/dL (0.7-1.3) Estimated GFR (Cockcroft-Gault) 92.9 BUN/Creatinine Ratio 12 (6-20) Glucose Level 148 mg/dL (70-99) Calcium Level 9.3 mg/dL (8.5-10.1) Magnesium Level 1.7 mg/dL (1.8-2.4) 2.5 mg/dL (1.8-2.4) Total Bilirubin 0.8 mg/dL (0.2-1.0) Aspartate Amino Transf (AST/SGOT) 23 U/L (15-37) Alanine Aminotransferase (ALT/SGPT) 37 U/L (16-63) Alkaline Phosphatase 68 U/L (46-116) Creatine Kinase 138 U/L (39-308) Creatine Kinase MB (Mass) 1.7 ng/mL (0.0-3.6) Creatine Kinase MB Relative Index 1.2 % (0-4) Troponin I Quantitative < 0.017 ng/mL (0.000-0.055) < 0.017 ng/mL (0.000-0.055) OH-Hfd-M-Type Natriuretic Peptide 127 pg/mL (0-124) Total Protein 6.4 g/dL (6.4-8.2) Albumin 3.3 g/dL (3.4-5.0) Albumin/Globulin Ratio 1.1 (1.0-1.7) Influenza Type A Antigen Negative (NEGATIVE) Influenza Type B Antigen Negative (NEGATIVE) Microbiology 03/15/18 Blood Culture - Preliminary, Resulted NO GROWTH AFTER 1 DAY Medications Current Medications Sodium Chloride 1,000 ml @ 1,000 mls/hr 1X ONCE IV Last administered on at 13:48; Start 03/15/18 at 13:30; Stop 03/15/18 at 14:29; Status DC Aspirin ([email or web address] Aspirin) 325 mg 1X ONCE PO Last administered on 03/15/18at 13:51 ; Start 03/15/18 at 13:30; Stop 03/15/18 at 13:31; Status DC Iohexol (Omnipaque 350 Mg/ml) 90 ml 1X ONCE IV Last administered on 03/15/18at 14:57; Start 03/15/18 at 14:45; Stop 03/15/18 at 14:46; Status DC Info (CONTRAST GIVEN -- Rx MONITORING) 1 each PRN DAILY PRN MC SEE COMMENTS; Start 03/15/18 at 14:45; Stop 03/17/18 at 14:44 Albuterol/ Ipratropium (Duoneb) 3 ml 1X ONCE NEB Last administered on at 16:27; Start 03/15/18 at 16:00; Stop 03/15/18 at 16:01; Status DC Dexamethasone Sodium Phosphate (Decadron) 10 mg 1X ONCE IV Last administered on 03/15/18at 16:16; Start 03/15/18 at 16:00; Stop 03/15/18 at 16:01; Status DC Potassium Chloride (Klor-Con) 40 meq 1X ONCE PO Last administered on 03/15/18at 16:11; Start 03/15/18 at 16:00; Stop 03/15/18 at 16:01; Status DC Levofloxacin/ Dextrose 150 ml @ 100 mls/hr 1X ONCE IV Last administered on 03/15/18at 18:54; Start 03/15/18 at 17:30; Stop 03/15/18 at 18:59; Status DC Magnesium Sulfate 50 ml @ 25 mls/hr 1X ONCE IV Last administered on 03/15/18at 19:51; Start 03/15/18 at 17:30; Stop 03/15/18 at 19:29; Status DC Magnesium Sulfate/ Dextrose 100 ml @ 100 mls/hr 1X ONCE IV Last administered on 03/15/18at 18:36; Start 03/15/18 at 17:30; Stop 03/15/18 at 18:29; Status DC Potassium Chloride (Klor-Con) 40 meq 1X ONCE PO Last administered on 03/15/18at 18:35; Start 03/15/18 at 17:30; Stop 03/15/18 at 17:32; Status DC Diphenhydramine HCl (Benadryl) 25 mg PRN QHS PRN PO INSOMNIA; Start 03/15/18 at 17:30 Guaifenesin (Robitussin Dm) 10 ml PRN Q6HRS PRN PO COUGH, 1ST CHOICE Last administered on 03/15/18at 22:14; Start 03/15/18 at 17:30 Albuterol/ Ipratropium (Duoneb) 3 ml RTQID NEB Last administered on 03/17/18 11 :04; Start 03/15/18 at 20:00 Nicotine (Nicoderm Cq 21mg) 1 patch PRN DAILY PRN TD SMOKING CESSATION; Start 03/15/18 at 17:30 Methylprednisolone Sodium Succinate (SOLU-Medrol 40MG VIAL) 40 mg Q8HRS IV Last administered on 03/17/18 12:14; Start 03/15/18 at 22:00 Albuterol Sulfate (Ventolin Neb Soln) 2.5 mg PRN Q4HRS PRN NEB SOA; Start at 17:30 Alprazolam (Xanax) 0.5 mg BID PO Last administered on 03/17/18 08:07; Start 03/15/18 at 21:00 Aspirin (Ecotrin) 81 mg DAILY08 PO Last administered on 03/17/18 08:07; Start 03/16/18 at 08:00 Atorvastatin Calcium (Lipitor) 10 mg HS PO Last administered on 03/16/18at 21:03 ; Start 03/15/18 at 21:00 Furosemide (Lasix) 20 mg DAILY PO Last administered on 03/17/18 08:07; Start at 09:00 Lactulose (Lactulose) 20 gm DAILY PO Last administered on 03/17/18 08:08; Start 03/16/18 at 09:00 Metoclopramide HCl (Reglan) 5 mg QIDACHS PO Last administered on 03/17/18 12:14 ; Start 03/15/18 at 21:00 Non-Formulary Medication (Budesonide/ Formoterol Fumarate (Symbicort 160-4.5 Mcg Inhaler)) 2 puff BID IH ; Start 03/15/18 at 21:00; Status UNV Fluticasone Propionate (Flonase) 2 spray DAILY NS Last administered on 08:06; Start 03/16/18 at 09:00 Guaifenesin/ Codeine Phosphate (Robitussin Ac) 5 ml PRN Q6HRS PRN PO COUGH, 2ND CHOICE; Start 03/15/18 at 18:45 Nystatin (Nystatin Oral Susp) 5 ml [id number] Last administered on 03/17/18 12:14; Start 03/15/18 at 21:00 Pantoprazole Sodium (Protonix) 40 mg DAILYAC PO Last administered on 03/17/18 08:07; Start 03/16/18 at 07:30 Non-Formulary Medication (Tiotropium [place] (Spiriva)) 2 inh DAILY IH ; Start 03/16/18 at 09:00; Status UNV Potassium Chloride (Klor-Con) 20 meq [id number] PO Last administered on 08:07; Start 03/16/18 at 08:00 Levofloxacin/ Dextrose (Levaquin Per Pharmacy) 1 each PRN DAILY PRN MC SEE COMMENTS; Start 03/15/18 at 18:15; Stop 03/16/18 at 13:46; Status DC Levofloxacin/ Dextrose 150 ml @ 100 mls/hr Q24H IV Last administered on at 16:49; Start 03/16/18 at 18:00 Budesonide (Pulmicort) 0.5 mg RTBID NEB Last administered on 03/17/18 07:21; Start 03/15/18 at 20:00 Albuterol/ Ipratropium (Duoneb) 3 ml RTQID NEB ; Start 03/15/18 at 20:00; Status UNV Lactobacillus Rhamnosus (Culturelle) 1 cap BID PO Last administered on at 08:08; Start 03/16/18 at 09:00 Tramadol HCl (Ultram) 50 mg PRN Q6HRS PRN PO MILD TO MODERATE PAIN Last administered on 03/17/18at 01:23; Start 03/16/18 at 08:15 Active Scripts Active Doxycycline Monohydrate 100 Mg Capsule 1 Cap PO BID Reglan (Metoclopramide Hcl) 10 Mg Tablet 0.5 Tab PO QID 30 Days Xanax (Alprazolam) 0.5 Mg Tablet 1 Tab PO BID Nystatin 100,000 Unit/1 Ml Oral.susp 5 Ml SWSW [id number] 7 Days Prednisone 20 Mg Tablet 40 Mg PO DAILY Guaifenesin-Codeine Syrup (Guaifenesin/Codeine Phosphate) 118 Ml Liquid 5 Ml PO Q6HRS Furosemide 20 Mg Tablet 1 Tab PO DAILY Lactulose 20 Gm/30 Ml Solution 20 Gm PO DAILY Albuterol Sulfate Neb Soln (Albuterol Sulfate) 2.5 Mg/3 Ml Vial.neb 1 Vial NEB PRN Q4HRS Reported Erythromycin (Erythromycin Base) 500 Mg Tablet 500 Mg PO DAILY 5 Days Erythromycin (Erythromycin Base) 250 Mg Tablet 250 Mg PO DAILY Vitamin D3 (Cholecalciferol (Vitamin D3)) 5,000 Unit Tablet 5,000 Unit PO DAILY Potassium Chloride 20 Meq Tablet.er 20 Meq PO DAILY Protonix (Pantoprazole Sodium) 20 Mg Tablet.dr 1 Tab PO DAILY Flonase Allergy Relief (Fluticasone Propionate) 9.9 Ml [place].susp 2 Sprays NS DAILY Atorvastatin Calcium 10 Mg Tablet 10 Mg PO HS Symbicort 160-4.5 Mcg Inhaler (Budesonide/Formoterol Fumarate) 10.2 Gm Hfa.aer.ad 2 Puff IH BID Spiriva (Tiotropium [place]) 18 Mcg Cap.w.dev 2 Inh IH DAILY Vitals/I & O Vital Sign - Last 24 Hours 03/16/18 03/16/18 03/16/18 03/16/18 14:54 15:25 16:45 19:00 Temp 98.6 98.3 98.6 98.3 Pulse 79 72 Resp 19 20 B/P (MAP) 104/66 (79) 133/70 (91) Pulse Ox 99 94 O2 Delivery Nasal Cannula Nasal Cannula Nasal Cannula Nasal Cannula O2 Flow Rate 3.0 3.0 3.0 3.0 03/16/18 03/16/18 03/16/18 03/17/18 20:00 20:30 23:00 01:23 Temp 98.0 98.0 Pulse 99 Resp 20 B/P (MAP) 118/77 (91) Pulse Ox 96 O2 Delivery Nasal Cannula Nasal Cannula Room Air Nasal Cannula O2 Flow Rate 3.0 3.0 3.0 03/17/18 03/17/18 03/17/18 03/17/18 02:26 03:00 07:00 07:24 Temp 97.9 98.4 97.9 98.4 Pulse 65 77 Resp 20 16 B/P (MAP) 130/80 (97) 99/79 (86) Pulse Ox 100 98 100 O2 Delivery Nasal Cannula Room Air Room Air Nasal Cannula O2 Flow Rate 3.0 3.0 3.0 3.0 03/17/18 03/17/18 03/17/18 08:00 11:00 11:05 Temp 98.5 98.5 Pulse 89 Resp 16 B/P (MAP) 104/58 (73) Pulse Ox 95 99 O2 Delivery Nasal Cannula Room Air Nasal Cannula O2 Flow Rate 3.0 3.0 3.0 Intake and Output 03/16/18 03/16/18 03/17/18 15:01 23:01 07:01 Intake Total 540 ml 320 ml 470 ml Balance 540 ml 320 ml 470 ml REBECA MARKSL K III DO Mar 17, 2018 12:20
--- NOTE | 2018-03-17 12:22 | PDOC ---
PULMONARY PROGRESS NOTES Subjective LESS SOA Vitals Vital Signs Date Time Temp Pulse Resp B/P (MAP) Pulse Ox O2 Delivery O2 Flow Rate FiO2 03/17/18 11:05 99 Nasal Cannula 3.0 03/17/18 11:00 98.5 89 16 104/58 (73) 98.5 ROS: No Nausea, No Chest Pain, No Abdominal Pain, No Increase Cough General: Alert, No acute distress Lungs: Wheezing Cardiovascular: S1, S2 Abdomen: Soft, Non-tender Extremities: No Edema, Other Labs Laboratory Tests Test 03/15/18 13:33 03/15/18 13:50 03/16/18 00:05 03/16/18 05:20 White Blood Count 6.9 x10^3/uL (4.0-11.0) Red Blood Count 3.83 x10^6/uL (4.30-5.70) Hemoglobin 11.6 g/dL (13.0-17.5) Hematocrit 34.3 % (39.0-53.0) Mean Corpuscular Volume 90 fL (79-100) Mean Corpuscular Hemoglobin 30 pg (25-35) Mean Corpuscular Hemoglobin Concent 34 g/dL (31-37) Red Cell Distribution Width 15.6 % (11.5-14.5) Platelet Count 160 x10^3/uL (140-400) Neutrophils (%) (Auto) 97 % (31-73) Lymphocytes (%) (Auto) 2 % (24-48) Monocytes (%) (Auto) 2 % (0-9) Eosinophils (%) (Auto) 0 % (0-3) Basophils (%) (Auto) 0 % (0-3) Neutrophils # (Auto) 6.6 x10^3uL (1.8-7.7) Lymphocytes # (Auto) 0.1 x10^3/uL (1.0-4.8) Monocytes # (Auto) 0.1 x10^3/uL (0.0-1.1) Eosinophils # (Auto) 0.0 x10^3/uL (0.0-0.7) Basophils # (Auto) 0.0 x10^3/uL (0.0-0.2) Segmented Neutrophils % 95 % (35-66) Band Neutrophils % 1 % (0-9) Lymphocytes % 3 % (24-48) Monocytes % 1 % (0-10) Platelet Estimate Adequate (ADEQUATE) Sodium Level 139 mmol/L (136-145) Potassium Level 3.1 mmol/L (3.5-5.1) 4.1 mmol/L (3.5-5.1) Chloride Level 99 mmol/L (98-107) Carbon Dioxide Level 31 mmol/L (21-32) Anion Gap 9 (6-14) Blood Urea Nitrogen 12 mg/dL (8-26) Creatinine 1.0 mg/dL (0.7-1.3) Estimated GFR (Cockcroft-Gault) 92.9 BUN/Creatinine Ratio 12 (6-20) Glucose Level 148 mg/dL (70-99) Calcium Level 9.3 mg/dL (8.5-10.1) Magnesium Level 1.7 mg/dL (1.8-2.4) 2.5 mg/dL (1.8-2.4) Total Bilirubin 0.8 mg/dL (0.2-1.0) Aspartate Amino Transf (AST/SGOT) 23 U/L (15-37) Alanine Aminotransferase (ALT/SGPT) 37 U/L (16-63) Alkaline Phosphatase 68 U/L (46-116) Creatine Kinase 138 U/L (39-308) Creatine Kinase MB (Mass) 1.7 ng/mL (0.0-3.6) Creatine Kinase MB Relative Index 1.2 % (0-4) Troponin I Quantitative < 0.017 ng/mL (0.000-0.055) < 0.017 ng/mL (0.000-0.055) GO-Azj-R-Type Natriuretic Peptide 127 pg/mL (0-124) Total Protein 6.4 g/dL (6.4-8.2) Albumin 3.3 g/dL (3.4-5.0) Albumin/Globulin Ratio 1.1 (1.0-1.7) Influenza Type A Antigen Negative (NEGATIVE) Influenza Type B Antigen Negative (NEGATIVE) Medications Active Scripts Medications Dose Route/Sig Max Daily Dose Days Date Category Erythromycin (Erythromycin Base) 500 Mg Tablet 500 Mg PO DAILY 5 03/15/18 Reported Erythromycin (Erythromycin Base) 250 Mg Tablet 250 Mg PO DAILY 03/15/18 Reported Vitamin D3 (Cholecalciferol (Vitamin D3)) 5,000 Unit Tablet 5,000 Unit PO DAILY 03/15/18 Reported Doxycycline Monohydrate 100 Mg Capsule 1 Cap PO BID 02/14/18 Rx Reglan (Metoclopramide Hcl) 10 Mg Tablet 0.5 Tab PO QID 30 02/14/18 Rx Xanax (Alprazolam) 0.5 Mg Tablet 1 Tab PO BID 02/03/18 Rx Nystatin 100,000 Unit/1 Ml Oral.susp 5 Ml SWSW [id number] 01/31/18 Rx Prednisone 20 Mg Tablet 40 Mg PO DAILY 01/31/18 Rx Potassium Chloride 20 Meq Tablet.er 20 Meq PO DAILY 01/13/18 Reported Protonix (Pantoprazole Sodium) 20 Mg Tablet.dr 1 Tab PO DAILY 11/18/17 Reported Flonase Allergy Relief (Fluticasone Propionate) 9.9 Ml [place].susp 2 Sprays NS DAILY 11/18/17 Reported Guaifenesin-Codeine Syrup (Guaifenesin/Codeine Phosphate) 118 Ml Liquid 5 Ml PO Q6HRS 10/10/17 Rx Furosemide 20 Mg Tablet 1 Tab PO DAILY 09/10/17 Rx Lactulose 20 Gm/30 Ml Solution 20 Gm PO DAILY 08/25/17 Rx Atorvastatin Calcium 10 Mg Tablet 10 Mg PO HS 08/21/17 Reported Albuterol Sulfate Neb Soln (Albuterol Sulfate) 2.5 Mg/3 Ml Vial.neb 1 Vial NEB PRN Q4HRS 07/10/17 Rx Symbicort 160-4.5 Mcg Inhaler (Budesonide/Formoterol Fumarate) 10.2 Gm Hfa.aer.ad 2 Puff IH BID 09/21/15 Reported Spiriva (Tiotropium [place]) 18 Mcg Cap.w.dev 2 Inh IH DAILY 09/21/15 Reported Impression . IMPRESSION: 1. Aspiration pneumonia. 2. Acute exacerbation of chronic obstructive pulmonary disease. 3. Acute on chronic respiratory failure. 4. Dysphagia with prior history of Rosanne esophagitis. Plan . BETTER HOME IN AM 1. We will initiate continued Levaquin. 2. Discharge home on Augmentin. 3. The patient is to follow up with cardiothoracic surgeon at [facility]. He may be a candidate for bullectomy. SCOTT COOK MD Mar 17, 2018 12:22
[2018-03-17 15:13] VITALS: BP 106/63
--- NOTE | 2018-03-17 16:46 | NUR ---
Patient had been walking around the unit with a portable oxygen tank, stating that he was hot and "the stuff was caught up in his throat." I called respiratory and had them administer a nebulizer treatment for him and we got him a fan in his room. He kept repeating that his throat was dry and he needed his "swish & swallow" (Nystatin oral solution). I tried to explain to him that the swish & swallow was for the treatment of thrush and that I did not think it was going to help his dry throat, but he wanted it anyway. I administered that to him, which he had no difficulty swallowing. I then tried to encourage him to sit in front of the fan in his room for a while (since walking around on the unit was causing him to get short of breath and the portable oxygen tank does not have a humidifier) and to try using the oxygen coming from the wall with the humidifier. He replied with, "I'll try it, but y'all are gonna have to call a rapid on me." He said, "I've been through this before and y'all are gonna have to either put me on bi-pap or put a tube down my throat." After a little more discussion, he agreed to try relaxing in front of the fan, so I left his room and about 5 minutes later, he asked us to call a rapid. I activated a rapid response around [address]ath[address]. Dr. Hathaway gave me an order for IV Ativan 1mg Q6H for anxiety. Respiratory therapy administered another breathing treatment and placed the patient on a cool mister to see if that would help with his dry throat. At this time the patient is sitting on the side of his bed, inhaling the cool mist. PRN Ativan 1mg was administered IV.
[2018-03-17 19:00] VITALS: BP 133/77
[2018-03-17] MEDS: ATORVASTATIN CALCIUM 10 MG TABLET. PO SCH (20:06)
[2018-03-17] MEDS: oxyCODONE IR 5 MG TABLET PO PRN (20:07)
[2018-03-17 23:00] VITALS: BP 132/84
[2018-03-18 03:00] VITALS: BP 133/93
[2018-03-18] MEDS: methylPREDNISolone SOD SUCC PF 40 MG/ML VIAL. IV SCH ×2 (06:14→13:10)
[2018-03-18] MEDS: IPRATRPIUM/ALBUTEROL 0.5/2.5MG 3 ML NEBU. NEB SCH ×3 (06:33→15:16)
[2018-03-18] MEDS: BUDESONIDE 0.5 MG/2 ML NEBU. NEB SCH (06:36)
[2018-03-18 07:00] VITALS: BP 138/93
[2018-03-18] MEDS: POTASSIUM CHLORIDE 20 MEQ TABLET.ER. PO SCH (08:00)
[2018-03-18] MEDS: FLUTICASONE 50MCG/NASAL SPRAY 16GM BOTTLE. NS SCH (09:05)
[2018-03-18] MEDS: LACTOBACILLUS RHAMNOSUS GG 1 CAPSULE. PO SCH (09:05)
[2018-03-18] MEDS: PANTOPRAZOLE 40 MG TABLET.DR. PO SCH (09:05)
[2018-03-18] MEDS: METOCLOPRAMIDE 10 MG TABLET. PO SCH ×3 (09:06→16:55)
[2018-03-18] MEDS: FUROSEMIDE 20 MG TABLET PO SCH (09:06)
[2018-03-18] MEDS: ASPIRIN ENTERIC COATED 81 MG TABLET.DR. PO SCH (09:06)
[2018-03-18] MEDS: ALPRAZolam 0.5 MG TABLET PO SCH (09:07)
[2018-03-18] MEDS: LACTULOSE 20 GM/30 ML SOLUTION. PO SCH (09:07)
[2018-03-18] MEDS: NYSTATIN 100,000 UNITS/ML 5 ML ORAL.SUSP. SWSW SCH ×3 (09:10→16:55)
--- NOTE | 2018-03-18 09:48 | PDOC ---
PULMONARY PROGRESS NOTES Subjective LESS SOA Vitals Vital Signs Date Time Temp Pulse Resp B/P (MAP) Pulse Ox O2 Delivery O2 Flow Rate FiO2 03/18/18 07:00 98.0 82 16 138/93 (108) 100 Nasal Cannula 3.0 98.0 ROS: No Nausea, No Chest Pain, No Abdominal Pain, No Increase Cough General: Alert, No acute distress Lungs: Wheezing Cardiovascular: S1, S2 Abdomen: Soft, Non-tender Extremities: No Edema, Other Medications Active Scripts Medications Dose Route/Sig Max Daily Dose Days Date Category Erythromycin (Erythromycin Base) 500 Mg Tablet 500 Mg PO DAILY 5 03/15/18 Reported Erythromycin (Erythromycin Base) 250 Mg Tablet 250 Mg PO DAILY 03/15/18 Reported Vitamin D3 (Cholecalciferol (Vitamin D3)) 5,000 Unit Tablet 5,000 Unit PO DAILY 03/15/18 Reported Doxycycline Monohydrate 100 Mg Capsule 1 Cap PO BID 02/14/18 Rx Reglan (Metoclopramide Hcl) 10 Mg Tablet 0.5 Tab PO QID 30 02/14/18 Rx Xanax (Alprazolam) 0.5 Mg Tablet 1 Tab PO BID 02/03/18 Rx Nystatin 100,000 Unit/1 Ml Oral.susp 5 Ml SWSW [id number] 01/31/18 Rx Prednisone 20 Mg Tablet 40 Mg PO DAILY 01/31/18 Rx Potassium Chloride 20 Meq Tablet.er 20 Meq PO DAILY 01/13/18 Reported Protonix (Pantoprazole Sodium) 20 Mg Tablet.dr 1 Tab PO DAILY 11/18/17 Reported Flonase Allergy Relief (Fluticasone Propionate) 9.9 Ml [place].susp 2 Sprays NS DAILY 11/18/17 Reported Guaifenesin-Codeine Syrup (Guaifenesin/Codeine Phosphate) 118 Ml Liquid 5 Ml PO Q6HRS 10/10/17 Rx Furosemide 20 Mg Tablet 1 Tab PO DAILY 09/10/17 Rx Lactulose 20 Gm/30 Ml Solution 20 Gm PO DAILY 08/25/17 Rx Atorvastatin Calcium 10 Mg Tablet 10 Mg PO HS 08/21/17 Reported Albuterol Sulfate Neb Soln (Albuterol Sulfate) 2.5 Mg/3 Ml Vial.neb 1 Vial NEB PRN Q4HRS 07/10/17 Rx Symbicort 160-4.5 Mcg Inhaler (Budesonide/Formoterol Fumarate) 10.2 Gm Hfa.aer.ad 2 Puff IH BID 09/21/15 Reported Spiriva (Tiotropium [place]) 18 Mcg Cap.w.dev 2 Inh IH DAILY 09/21/15 Reported Impression . IMPRESSION: 1. Aspiration pneumonia. 2. Acute exacerbation of chronic obstructive pulmonary disease. 3. Acute on chronic respiratory failure. 4. Dysphagia with prior history of Rosanne esophagitis. Plan . PT NOT SEEN SPOKE WITH RN HOME WITH AUGMENTIN 875 BID FOR 14 DAYS FOLLOW UP IN MY OFFICE SCOTT COOK MD Mar 18, 2018 09:48
[2018-03-18 11:05] VITALS: BP 113/72
--- NOTE | 2018-03-18 12:37 | PDOC ---
PROGRESS NOTES Chief Complaint Chief Complaint CC: COPD exacerbation History of Present Illness History of Present Illness Patient was seen and examined. States he is breathing better but is having trouble clearing mucous. Discussed with him about starting some Mucinex. He is currently on 3L O2. He wants something for pain. I discussed pt care and discharge with his RN. She stated that he was choking yesterday while trying to swallow pills. We will consult ST and D/C him if he is cleared. Vitals Vitals Vital Signs Date Time Temp Pulse Resp B/P (MAP) Pulse Ox O2 Delivery O2 Flow Rate FiO2 03/18/18 11:07 100 Nasal Cannula 3.0 03/18/18 11:05 98.0 103 18 113/72 (86) 98.0 Physical Exam General: Alert, Oriented X3, Cooperative, No acute distress Heart: Regular rate Lungs: Wheezing, Other (No crackles or rhonchi) Abdomen: Normal bowel sounds, No hepatosplenomegaly, No masses Extremities: No clubbing, No edema Skin: No rashes, No significant lesion Review of Systems Review of Systems Gen: denies weight change, fatigue, fever, chills HEENT: denies trauma, SORIANO, blurry vision, ear pain, loss of vision, congestion, or rhinorrhea Heart: denies CP, palpitations, or dyspnea on exertion Lung: denies SOA, wheeze, cough GI: denies nausea, vomiting, or pain Assessment and Plan Assessmemt and Plan Assessment: 1. Severe COPD 2. Probable clinical pneumonia. 4. Hypokalemia 5. Hypomagnesemia Plan: Start Mucinex 1200mg BID Vicoprofen 7.5/200 mg PO q4-6h for pain Consult ST Probable D/C today if okay by pulmonology and speech therapy IV antibiotics Breathing treatments Oxygen Steroids Home meds, PT, OT, Repeat labs. Comment Review of Relevant I have reviewed the following items franki (where applicable) has been applied. Labs Microbiology 03/15/18 Blood Culture - Preliminary, Resulted NO GROWTH AFTER 2 DAYS Medications Current Medications Sodium Chloride 1,000 ml @ 1,000 mls/hr 1X ONCE IV Last administered on at 13:48; Start 03/15/18 at 13:30; Stop 03/15/18 at 14:29; Status DC Aspirin (Billy Aspirin) 325 mg 1X ONCE PO Last administered on 03/15/18at 13:51 ; Start 03/15/18 at 13:30; Stop 03/15/18 at 13:31; Status DC Iohexol (Omnipaque 350 Mg/ml) 90 ml 1X ONCE IV Last administered on 03/15/18at 14:57; Start 03/15/18 at 14:45; Stop 03/15/18 at 14:46; Status DC Info (CONTRAST GIVEN -- Rx MONITORING) 1 each PRN DAILY PRN MC SEE COMMENTS; Start 03/15/18 at 14:45; Stop 03/17/18 at 14:44; Status DC Albuterol/ Ipratropium (Duoneb) 3 ml 1X ONCE NEB Last administered on at 16:27; Start 03/15/18 at 16:00; Stop 03/15/18 at 16:01; Status DC Dexamethasone Sodium Phosphate (Decadron) 10 mg 1X ONCE IV Last administered on 03/15/18at 16:16; Start 03/15/18 at 16:00; Stop 03/15/18 at 16:01; Status DC Potassium Chloride (Klor-Con) 40 meq 1X ONCE PO Last administered on 03/15/18at 16:11; Start 03/15/18 at 16:00; Stop 03/15/18 at 16:01; Status DC Levofloxacin/ Dextrose 150 ml @ 100 mls/hr 1X ONCE IV Last administered on 03/15/18at 18:54; Start 03/15/18 at 17:30; Stop 03/15/18 at 18:59; Status DC Magnesium Sulfate 50 ml @ 25 mls/hr 1X ONCE IV Last administered on 03/15/18at 19:51; Start 03/15/18 at 17:30; Stop 03/15/18 at 19:29; Status DC Magnesium Sulfate/ Dextrose 100 ml @ 100 mls/hr 1X ONCE IV Last administered on 03/15/18at 18:36; Start 03/15/18 at 17:30; Stop 03/15/18 at 18:29; Status DC Potassium Chloride (Klor-Con) 40 meq 1X ONCE PO Last administered on 03/15/18at 18:35; Start 03/15/18 at 17:30; Stop 03/15/18 at 17:32; Status DC Diphenhydramine HCl (Benadryl) 25 mg PRN QHS PRN PO INSOMNIA; Start 03/15/18 at 17:30 Guaifenesin (Robitussin Dm) 10 ml PRN Q6HRS PRN PO COUGH, 1ST CHOICE Last administered on 03/15/18 22:14; Start 03/15/18 at 17:30 Albuterol/ Ipratropium (Duoneb) 3 ml RTQID NEB Last administered on 03/18/18 11 :07; Start 03/15/18 at 20:00 Nicotine (Nicoderm Cq 21mg) 1 patch PRN DAILY PRN TD SMOKING CESSATION; Start 03/15/18 at 17:30 Methylprednisolone Sodium Succinate (SOLU-Medrol 40MG VIAL) 40 mg Q8HRS IV Last administered on 03/18/18 06:14; Start 03/15/18 at 22:00 Albuterol Sulfate (Ventolin Neb Soln) 2.5 mg PRN Q4HRS PRN NEB SOA Last administered on 03/17/18 16:28; Start 03/15/18 at 17:30 Alprazolam (Xanax) 0.5 mg BID PO Last administered on 03/18/18 09:07; Start 03/15/18 at 21:00 Aspirin (Ecotrin) 81 mg DAILY08 PO Last administered on 03/18/18 09:06; Start 03/16/18 at 08:00 Atorvastatin Calcium (Lipitor) 10 mg HS PO Last administered on 03/17/18 20:06 ; Start 03/15/18 at 21:00 Furosemide (Lasix) 20 mg DAILY PO Last administered on 03/18/18 09:06; Start at 09:00 Lactulose (Lactulose) 20 gm DAILY PO Last administered on 03/18/18 09:07; Start 03/16/18 at 09:00 Metoclopramide HCl (Reglan) 5 mg QIDACHS PO Last administered on 03/18/18 11:09 ; Start 03/15/18 at 21:00 Non-Formulary Medication (Budesonide/ Formoterol Fumarate (Symbicort 160-4.5 Mcg Inhaler)) 2 puff BID IH ; Start 03/15/18 at 21:00; Status UNV Fluticasone Propionate (Flonase) 2 spray DAILY NS Last administered on 09:05; Start 03/16/18 at 09:00 Guaifenesin/ Codeine Phosphate (Robitussin Ac) 5 ml PRN Q6HRS PRN PO COUGH, 2ND CHOICE; Start 03/15/18 at 18:45 Nystatin (Nystatin Oral Susp) 5 ml [id number] Last administered on 03/18/18 09:10; Start 03/15/18 at 21:00 Pantoprazole Sodium (Protonix) 40 mg DAILYAC PO Last administered on 03/18/18 09:05; Start 03/16/18 at 07:30 Non-Formulary Medication (Tiotropium [place] (Spiriva)) 2 inh DAILY IH ; Start 03/16/18 at 09:00; Status UNV Potassium Chloride (Klor-Con) 20 meq [id number] PO Last administered on 08:07; Start 03/16/18 at 08:00 Levofloxacin/ Dextrose (Levaquin Per Pharmacy) 1 each PRN DAILY PRN MC SEE COMMENTS; Start 03/15/18 at 18:15; Stop 03/16/18 at 13:46; Status DC Levofloxacin/ Dextrose 150 ml @ 100 mls/hr Q24H IV Last administered on 16:04; Start 03/16/18 at 18:00 Budesonide (Pulmicort) 0.5 mg RTBID NEB Last administered on 03/18/18 06:36; Start 03/15/18 at 20:00 Albuterol/ Ipratropium (Duoneb) 3 ml RTQID NEB ; Start 03/15/18 at 20:00; Status UNV Lactobacillus Rhamnosus (Culturelle) 1 cap BID PO Last administered on 09:05; Start 03/16/18 at 09:00 Tramadol HCl (Ultram) 50 mg PRN Q6HRS PRN PO MILD TO MODERATE PAIN Last administered on 03/17/18 01:23; Start 03/16/18 at 08:15 Lorazepam (Ativan) 1 mg PRN Q6HRS PRN IV ANXIETY / AGITATION Last administered on 03/17/18 16:34; Start 03/17/18 at 16:30 Oxycodone HCl (Roxicodone) 5 mg PRN Q6HRS PRN PO SEVERE PAIN Last administered on 03/17/18at 20:07; Start 03/17/18 at 19:15 Active Scripts Active Doxycycline Monohydrate 100 Mg Capsule 1 Cap PO BID Reglan (Metoclopramide Hcl) 10 Mg Tablet 0.5 Tab PO QID 30 Days Xanax (Alprazolam) 0.5 Mg Tablet 1 Tab PO BID Nystatin 100,000 Unit/1 Ml Oral.susp 5 Ml SWSW [id number] 7 Days Prednisone 20 Mg Tablet 40 Mg PO DAILY Guaifenesin-Codeine Syrup (Guaifenesin/Codeine Phosphate) 118 Ml Liquid 5 Ml PO Q6HRS Furosemide 20 Mg Tablet 1 Tab PO DAILY Lactulose 20 Gm/30 Ml Solution 20 Gm PO DAILY Albuterol Sulfate Neb Soln (Albuterol Sulfate) 2.5 Mg/3 Ml Vial.neb 1 Vial NEB PRN Q4HRS Reported Erythromycin (Erythromycin Base) 500 Mg Tablet 500 Mg PO DAILY 5 Days Erythromycin (Erythromycin Base) 250 Mg Tablet 250 Mg PO DAILY Vitamin D3 (Cholecalciferol (Vitamin D3)) 5,000 Unit Tablet 5,000 Unit PO DAILY Potassium Chloride 20 Meq Tablet.er 20 Meq PO DAILY Protonix (Pantoprazole Sodium) 20 Mg Tablet.dr 1 Tab PO DAILY Flonase Allergy Relief (Fluticasone Propionate) 9.9 Ml [place].susp 2 Sprays NS DAILY Atorvastatin Calcium 10 Mg Tablet 10 Mg PO HS Symbicort 160-4.5 Mcg Inhaler (Budesonide/Formoterol Fumarate) 10.2 Gm Hfa.aer.ad 2 Puff IH BID Spiriva (Tiotropium [place]) 18 Mcg Cap.w.dev 2 Inh IH DAILY Vitals/I & O Vital Sign - Last 24 Hours 03/17/18 03/17/18 03/17/18 03/17/18 15:13 15:32 16:30 19:00 Temp 97.8 98.2 97.8 98.2 Pulse 84 81 Resp 16 20 B/P (MAP) 106/63 (77) 133/77 (95) Pulse Ox 98 99 98 100 O2 Delivery Room Air Nasal Cannula Aerosol Mask Room Air O2 Flow Rate 3.0 3.0 8.0 03/17/18 03/17/18 03/17/18 03/17/18 20:00 20:07 20:28 20:29 O2 Delivery Mask Nasal Cannula Aerosol Mask Aerosol Mask O2 Flow Rate 8.0 3.0 8.0 8.0 03/17/18 03/17/18 03/18/18 03/18/18 21:44 23:00 03:00 06:37 Temp 97.6 97.7 97.6 97.7 Pulse 70 76 Resp 20 20 B/P (MAP) 132/84 (100) 133/93 (106) Pulse Ox 98 100 100 O2 Delivery Nasal Cannula Nasal Cannula Nasal Cannula O2 Flow Rate 3.0 3.0 3.0 3.0 03/18/18 03/18/18 03/18/18 03/18/18 07:00 08:00 11:05 11:07 Temp 98.0 98.0 98.0 98.0 Pulse 82 103 Resp 16 18 B/P (MAP) 138/93 (108) 113/72 (86) Pulse Ox 100 99 100 O2 Delivery Nasal Cannula Mask Nasal Cannula Nasal Cannula O2 Flow Rate 3.0 3.0 3.0 Intake and Output 03/17/18 03/17/18 03/18/18 15:01 23:01 07:01 Intake Total 480 ml 120 ml 350 ml Output Total 475 ml Balance 480 ml -355 ml 350 ml TAMMY MARKS III DO Mar 18, 2018 12:37
--- NOTE | 2018-03-18 12:54 | NUR ---
SW following for discharge planning. Discussed with RN, pt was having trouble swallowing, and has been having breathing treatments. RN advised pt is discharging home with self care. No SW needs.
[2018-03-18] MEDS: oxyCODONE IR 5 MG TABLET PO PRN (13:17)
[2018-03-18 15:00] VITALS: BP 137/91
--- NOTE | 2018-03-18 19:31 | NUR ---
Discharge Note: [facility] Discharge instructions and discharge home medications reviewed with Patient and a copy given. All questions have been answered and understanding verbalized. The following instructions and handouts were given: COPD exasterbation, SOB, hypoxemia, hypomagnesemia, budesonide;formoterol, hydrocodone;ibuprofen, MDI, Methylprednisolone Discontinued lines and drains: 20G Right FA removed. Catheter intact. Patient discharged to home with self-care via WC to private vehicle. Pt. told Dr. Hathaway this afternoon that he was ready to go home.
--- NOTE | 2018-03-20 11:14 | DS ---
DATE OF DISCHARGE: 03/18/2018 ADMISSION DIAGNOSIS: Chronic obstructive pulmonary disease exacerbation. DISCHARGE DIAGNOSES: Resolving chronic obstructive pulmonary disease exacerbation with resolving respiratory failure. HOSPITAL COURSE: The patient is a pleasant 57-year-old male presented with COPD exacerbation. He was admitted. We gave him IV antibiotics, IV steroids, breathing treatments, oxygen, did some physical therapy and occupational therapy. We continued his home meds. We did consult Pulmonary. Over the next couple of days, he returned to his baseline. We discharged to home with close outpatient followup. DISPOSITION: Home. ACTIVITY: As tolerated. DIET: Low sodium. MEDICATIONS: Please see the MRAD. TOTAL TIME: 36 minutes. TAMMY MARKS DO DR: HEATHER/efrain JOB#: [id number] / [id number]
[2018-05-30] MEDS ORDERED: DOCU-109 PO (16:45)
[2018-05-30] MEDS ORDERED: MAG30ORA2 PO (16:45)
[2018-05-30] MEDS ORDERED: ACET325T9 PO (16:45)
[2018-05-30] MEDS ORDERED: AMOX1TAB11 PO (16:45)
[2018-05-30] MEDS ORDERED: GUAI100L12 PO (16:45)
[2018-08-07] MEDS ORDERED: PRED2.5T PO (11:45)
[2018-08-07] MEDS ORDERED: PRED50TA PO (11:45)
[2018-08-07] MEDS ORDERED: DOXY100T PO (11:45)
[2018-08-07] MEDS ORDERED: PRED20TA PO (11:45)
[2018-08-07] MEDS ORDERED: TRAM1TAB4 PO (13:45)
[2018-08-25] MEDS ORDERED: ALBU2.5V5 NEB (23:10)
[2018-08-25] MEDS ORDERED: METH40VI IJ (23:10)
[2018-08-25] MEDS ORDERED: BUDE0.253 NEB (23:10)
[2018-08-28] MEDS ORDERED: DILT30TA26 PO (12:31)
[2018-08-28] MEDS ORDERED: ASPI-612 PO (12:31)
[2018-08-28] MEDS ORDERED: INSU100I11 SQ (12:31)
[2018-09-09] MEDS ORDERED: AZIT500T4 PO (14:18)
[2018-09-09] MEDS ORDERED: RIVA20TA2 PO (14:18)
[2018-09-09] MEDS ORDERED: METF500T16 PO (14:18)
[2018-09-09] MEDS ORDERED: TIZA4TAB2 PO (14:18)
[2018-09-11] MEDS ORDERED: LORA-434 PO (09:14)
[2018-09-11] MEDS ORDERED: LIDO700A21 TP (10:58)
== END 2018-03-18 17:45 | disposition home or self-care (01) | DRG 177 ==
LOC: ER 12:40 → 5 SOUTH 17:30
PROVIDERS: ADMIT Internal Medicine; ATTEND Internal Medicine
DX: J69.0 Pneumonitis due to inhalation of food and vomit (principal); J96.20 Acute and chronic respiratory failure, unspecified whether with hypoxia or hypercapnia; J44.1 Chronic obstructive pulmonary disease with (acute) exacerbation; J44.0 Chronic obstructive pulmonary disease with (acute) lower respiratory infection; I11.0 Hypertensive heart disease with heart failure; E87.6 Hypokalemia; E83.42 Hypomagnesemia; R13.10 Dysphagia, unspecified; I50.9 Heart failure, unspecified; E78.00 Pure hypercholesterolemia, unspecified; I25.10 Atherosclerotic heart disease of native coronary artery without angina pectoris; Z82.49 Family history of ischemic heart disease and other diseases of the circulatory system; Z99.81 Dependence on supplemental oxygen; F17.201 Nicotine dependence, unspecified, in remission; F32.9 Major depressive disorder, single episode, unspecified; F41.9 Anxiety disorder, unspecified
CPT/HCPCS: 36415; 71275; 80053; 82553; 83735; 83880; 84132; 84484; 85007; 85025; 87040; 87804; 93005; 94640; 94760; 96361; 96365; 96375; J1100; J1956; J2060; J2920; J3475; J7030; J7613; J7620; J7626; J8597; Q9967; 92610; 99285-25; G0378

== ENCOUNTER 2018-03-25 14:00 | Emergency (ER) | payer MEDICARE, MEDICAID ==
[~2018-03-25] VITALS: Ht 180.3 cm; Wt 72.1 kg
[~2018-03-25 14:00] MED LIST changes: +CHOL500016 PO; +ERYT250T14 PO; +ERYT500T17 PO
[2018-03-25] MEDS ORDERED: ALBUTEROL SULFATE 2.5 MG/3 ML NEBU. CONT NEB ONE (15:15)
--- NOTE | 2018-03-25 15:45 | RAD ---
CHEST PA LATERAL Clinical indications: Shortness of air. Cough. COMPARISON: March 06, 2018. Findings: Hyperexpansion is seen on the left side with decrease in pulmonary markings consistent with emphysema. This results in crowding of bronchopulmonary markings within the left lung base. This is unchanged. There is persistent atelectasis or infiltrate within the medial right lung base which has improved. No pleural effusion or pneumothorax is seen. The heart size and mediastinum and pulmonary vasculature and both maye are stable. IMPRESSION: Improving medial right lung base infiltrate or atelectasis. Electronically signed by: Fransico Lindsey MD (03/25/2018 3:40 PM) [id number]
[2018-03-25 15:57] LABS: BASO % 0 % (0-3); EOS % 0 % (0-3); HEMATOCRIT 37.8 % (39.0-53.0); HEMOGLOBIN 12.6 g/dL (13.0-17.5); LYMPH # 0.1 x10^3/uL (1.0-4.8); LYMPH % 2 % (24-48); MEAN CORPUSCULAR HEMOGLOBIN 30 pg (25-35); MEAN CORPUSCULAR HGB CONC 33 g/dL (31-37); MEAN CORPUSCULAR VOLUME 91 fL (79-100); MONO # 0.1 x10^3/uL (0.0-1.1); MONO % 1 % (0-9); NEUT % 97 % (31-73); PLATELET COUNT 178 x10^3/uL (140-400); RED BLOOD COUNT 4.16 x10^6/uL (4.30-5.70); RED CELL DISTRIBUTION WIDTH 15.7 % (11.5-14.5); WHITE BLOOD COUNT 8.2 x10^3/uL (4.0-11.0)
[2018-03-25 16:10] LABS: CALCIUM 9.6 mg/dL (8.5-10.1); GFR 92.9; POTASSIUM 4.1 mmol/L (3.5-5.1)
[2018-03-25 16:14] VITALS: BP 101/70
[2018-03-25 16:15] LABS: ALBUMIN 3.5 g/dL (3.4-5.0); ALBUMIN/GLOBULIN RATIO 1.1 (1.0-1.7); TOTAL BILIRUBIN 0.8 mg/dL (0.2-1.0); TOTAL PROTEIN 6.8 g/dL (6.4-8.2)
--- NOTE | 2018-03-25 16:39 | PHYS DOC ---
Past Medical History Past Medical History: Anxiety, Bronchitis, CHF, COPD, High Cholesterol, Hypertension, Lung Disease, Other Additional Past Medical Histor: EMPHYSEMA-on 3 L NC, PREDIABETIC Past Surgical History: Other Additional Past Surgical Histo: INGUINAL HERNIA REPAIR X2 Alcohol Use: None Drug Use: None Adult General Chief Complaint Chief Complaint: SHORTNESS OF BREATH HPI HPI Patient is a 57 year old male who presents with shortness of air. The patient states that he has been short of air worsening throughout the day today. He was recently hospitalized at [place]. He was discharged from this facility and went to [facility] and was admitted. He was discharged from [place] yesterday and has follow-up scheduled for tomorrow. He states that he used his breathing treatment at home and didn't feel like it was working well for him. The patient does have at home oxygen, as well as steroids and antibiotics. Review of Systems Review of Systems Constitutional: Denies fever or chills [] Eyes: Denies change in visual acuity, redness, or eye pain [] HENT: Denies nasal congestion or sore throat [] Respiratory: See history of present illness Cardiovascular: No additional information not addressed in HPI [] GI: Denies abdominal pain, nausea, vomiting, bloody stools or diarrhea [] : Denies dysuria or hematuria [] Musculoskeletal: Denies back pain or joint pain [] Integument: Denies rash or skin lesions [] Neurologic: Denies headache, focal weakness or sensory changes [] Endocrine: Denies polyuria or polydipsia [] All other systems were reviewed and found to be within normal limits, except as documented in this note. Current Medications Current Medications Current Medications Medications (Trade) Dose Ordered Sig/Candy Start Time Stop Time Status Last Admin Dose Admin Albuterol Sulfate (Ventolin Neb Soln) 10 mg 1X ONCE 03/25/18 15:15 03/25/18 15:16 DC 03/25/18 15:19 10 MG Allergies Allergies Allergies Coded Allergies Type Severity Reaction Last Updated Verified acetaminophen Allergy Intermediate TAKES NORCO AT HOME 01/29/18 Yes Physical Exam Physical Exam Constitutional: Well developed, well nourished, no acute distress, non-toxic appearance. [] HENT: Normocephalic, atraumatic, bilateral external ears normal, oropharynx moist, no oral exudates, nose normal. [] Eyes: PERRLA, EOMI, conjunctiva normal, no discharge. [] Neck: Normal range of motion, no tenderness, supple, no stridor. [] Cardiovascular:Heart rate regular rhythm, no murmur [] Lungs & Thorax: Bilateral breath sounds decreased throughout Abdomen: Bowel sounds normal, soft, no tenderness, no masses, no pulsatile masses. [] Skin: Warm, dry, no erythema, no rash. [] Back: No tenderness, no CVA tenderness. [] Extremities: No tenderness, no cyanosis, no clubbing, ROM intact, no edema. [] Neurologic: Alert and oriented X 3, normal motor function, normal sensory function, no focal deficits noted. [] Psychologic: Affect normal, judgement normal, mood normal. [] Current Patient Data Vital Signs Vital Signs Date Time Temp Pulse Resp B/P (MAP) Pulse Ox O2 Delivery O2 Flow Rate FiO2 03/25/18 15:19 100 Nasal Cannula 3.0 03/25/18 14:21 98.7 102 16 104/76 (85) 98.7 Lab Values Laboratory Tests Test 03/25/18 15:38 White Blood Count 8.2 x10^3/uL (4.0-11.0) Red Blood Count 4.16 x10^6/uL (4.30-5.70) L Hemoglobin 12.6 g/dL (13.0-17.5) L Hematocrit 37.8 % (39.0-53.0) L Mean Corpuscular Volume 91 fL (79-100) Mean Corpuscular Hemoglobin 30 pg (25-35) Mean Corpuscular Hemoglobin Concent 33 g/dL (31-37) Red Cell Distribution Width 15.7 % (11.5-14.5) H Platelet Count 178 x10^3/uL (140-400) Neutrophils (%) (Auto) 97 % (31-73) H Lymphocytes (%) (Auto) 2 % (24-48) L Monocytes (%) (Auto) 1 % (0-9) Eosinophils (%) (Auto) 0 % (0-3) Basophils (%) (Auto) 0 % (0-3) Neutrophils # (Auto) 8.0 x10^3uL (1.8-7.7) H Lymphocytes # (Auto) 0.1 x10^3/uL (1.0-4.8) L Monocytes # (Auto) 0.1 x10^3/uL (0.0-1.1) Eosinophils # (Auto) 0.0 x10^3/uL (0.0-0.7) Basophils # (Auto) 0.0 x10^3/uL (0.0-0.2) Platelet Estimate Pending Sodium Level 142 mmol/L (136-145) Potassium Level 4.1 mmol/L (3.5-5.1) Chloride Level 103 mmol/L (98-107) Carbon Dioxide Level 30 mmol/L (21-32) Anion Gap 9 (6-14) Blood Urea Nitrogen 14 mg/dL (8-26) Creatinine 1.0 mg/dL (0.7-1.3) Estimated GFR (Cockcroft-Gault) 92.9 BUN/Creatinine Ratio 14 (6-20) Glucose Level 153 mg/dL (70-99) H Calcium Level 9.6 mg/dL (8.5-10.1) Total Bilirubin 0.8 mg/dL (0.2-1.0) Aspartate Amino Transferase (AST) 31 U/L (15-37) Alanine Aminotransferase (ALT) 41 U/L (16-63) Alkaline Phosphatase 74 U/L (46-116) Total Protein 6.8 g/dL (6.4-8.2) Albumin 3.5 g/dL (3.4-5.0) Albumin/Globulin Ratio 1.1 (1.0-1.7) Laboratory Tests 03/25/18 15:38 Laboratory Tests 03/25/18 15:38 EKG EKG [] Radiology/Procedures Radiology/Procedures [] Course & Med Decision Making Course & Med Decision Making Pertinent Labs and Imaging studies reviewed. (See chart for details) []The patient was given an hour-long albuterol treatment in the emergency department. This has helped with his symptoms. His x-ray shows that his pneumonia is improving. 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 He is to take his medications as prescribed at home. Dragon Disclaimer Dragon Disclaimer This electronic medical record was generated, in whole or in part, using a voice recognition dictation system. Departure Departure Impression: Primary Impression: Shortness of breath Disposition: HOME, SELF-CARE Condition: STABLE Referrals: UNKNOWN PCP NAME (PCP) Patient Instructions: Pneumonia, Adult Additional Instructions: Continue your at-home therapy. Take your antibiotics and steroids as directed. Keep your follow-up appointments that are currently scheduled. If worsening return to the emergency department. THALIA SELF APRN Mar 25, 2018 16:39
[2018-03-25 16:48] LABS: % LYMPHS 2 % (24-48); % MONOS 2 % (0-10); % SEGS 96 % (35-66)
[2018-03-25 16:49] LABS: PLT ESTIMATE ADEQUATE (ADEQUATE); TOXIC VACUOLATION SLIGHT
== END 2018-03-25 17:42 | disposition home or self-care (01) ==
LOC: ER 14:00
DX: R06.02 Shortness of breath (principal); F41.9 Anxiety disorder, unspecified; J44.9 Chronic obstructive pulmonary disease, unspecified; E78.00 Pure hypercholesterolemia, unspecified; I11.0 Hypertensive heart disease with heart failure; I50.9 Heart failure, unspecified; Z88.6 Allergy status to analgesic agent
CPT/HCPCS: 36415; 71046; 80053; 85007; 85025; 94644; 99285; J7613; 94640; 99284-25

== ENCOUNTER 2018-03-27 02:16 | Emergency (ER) | payer MEDICARE, MEDICAID ==
[~2018-03-27] VITALS: Ht 180.3 cm; Wt 72.1 kg
[2018-03-27] MEDS ORDERED: FAMOTIDINE 20 MG/2 ML VIAL IVP ONE (02:45)
[2018-03-27 03:29] LABS: BASO % 0 % (0-3); EOS % 0 % (0-3); HEMOGLOBIN 11.4 g/dL (13.0-17.5); LYMPH # 0.3 x10^3/uL (1.0-4.8); LYMPH % 5 % (24-48); MEAN CORPUSCULAR HEMOGLOBIN 30 pg (25-35); MEAN CORPUSCULAR HGB CONC 33 g/dL (31-37); MEAN CORPUSCULAR VOLUME 91 fL (79-100); MONO # 0.5 x10^3/uL (0.0-1.1); MONO % 7 % (0-9); NEUT # 5.7 x10^3uL (1.8-7.7); NEUT % 87 % (31-73); PLATELET COUNT 166 x10^3/uL (140-400); RED BLOOD COUNT 3.75 x10^6/uL (4.30-5.70); RED CELL DISTRIBUTION WIDTH 15.9 % (11.5-14.5); WHITE BLOOD COUNT 6.6 x10^3/uL (4.0-11.0)
[2018-03-27 03:44] LABS: CALCIUM 8.7 mg/dL (8.5-10.1); CREATININE 0.8 mg/dL (0.7-1.3); GFR 120.1; POTASSIUM 3.5 mmol/L (3.5-5.1)
[2018-03-27 03:49] LABS: ALBUMIN 3.2 g/dL (3.4-5.0); ALBUMIN/GLOBULIN RATIO 1.2 (1.0-1.7); TOTAL BILIRUBIN 0.6 mg/dL (0.2-1.0); TOTAL PROTEIN 5.8 g/dL (6.4-8.2)
[2018-03-27] MEDS ORDERED: PRED50TA PO (05:01)
--- NOTE | 2018-03-27 05:33 | PHYS DOC ---
Past Medical History Past Medical History: Anxiety, Bronchitis, CHF, COPD, High Cholesterol, Hypertension, Lung Disease, Other Additional Past Medical Histor: EMPHYSEMA-on 3 L NC, PREDIABETIC Past Surgical History: Other Additional Past Surgical Histo: INGUINAL HERNIA REPAIR X2 Alcohol Use: None Drug Use: None Adult General Chief Complaint Chief Complaint: DYSPNEA/RESPIRATOY DISTRESS HPI HPI Patient is a 57 year old -[place]er male with history of chronic respiratory failure requiring 3 L nasal cannula baseline presents with increased shortness of air acute onset 30 minutes prior to ED arrival. Patient states he felt as though water was stuck in his throat and has been regurgitating it. Denies choking episode. Patient states he is unable to her throat or vomit fluid and as such has become more short of breath. Denies chest pain, nausea, increased leg pain or swelling. No fever chills, sweats. No other acute symptoms or complaints.[] Review of Systems Review of Systems ROS as per HPI All other systems were reviewed and found to be within normal limits, except as documented in this note. Current Medications Current Medications Current Medications Medications (Trade) Dose Ordered Sig/Candy Start Time Stop Time Status Last Admin Dose Admin Famotidine (Pepcid Vial) 20 mg 1X ONCE 03/27/18 02:45 03/27/18 02:46 DC 03/27/18 03:12 20 MG Lorazepam (Ativan) 1 mg 1X ONCE 03/27/18 02:45 03/27/18 02:46 DC 03/27/18 03:13 1 MG Allergies Allergies Allergies Coded Allergies Type Severity Reaction Last Updated Verified acetaminophen Allergy Intermediate TAKES NORCO AT HOME 01/29/18 Yes Physical Exam Physical Exam Constitutional: Anxious, Increased work of breathing, patient gagging unable to regurgitate phlegm.. [] HENT: Normocephalic, atraumatic, bilateral external ears normal, oropharynx moist, no oral exudates, nose normal. [] Eyes: PERRLA, EOMI, conjunctiva normal, no discharge. [] Neck: Normal range of motion, no tenderness, supple, no stridor. [] Cardiovascular:Heart rate regular rhythm, no murmur [] Lungs & Thorax: Breathing, diminished coarse breath sounds bilaterally[] Abdomen: Bowel sounds normal, soft, no tenderness, no masses. [] Skin: Warm, dry, no erythema, no rash. [] Back: No tenderness. [] Extremities: No tenderness, no clubbing, ROM intact, no edema. [] Neurologic: Alert and oriented, normal motor function, normal sensory function, no focal deficits noted. [] Psychologic: Affect, anxious. [] Current Patient Data Lab Values Laboratory Tests Test 03/27/18 03:00 03/27/18 03:15 Sodium Level 145 mmol/L (136-145) Potassium Level 3.5 mmol/L (3.5-5.1) Chloride Level 105 mmol/L (98-107) Carbon Dioxide Level 33 mmol/L (21-32) H Anion Gap 7 (6-14) Blood Urea Nitrogen 11 mg/dL (8-26) Creatinine 0.8 mg/dL (0.7-1.3) Estimated GFR (Cockcroft-Gault) 120.1 BUN/Creatinine Ratio 14 (6-20) Glucose Level 82 mg/dL (70-99) Calcium Level 8.7 mg/dL (8.5-10.1) Total Bilirubin 0.6 mg/dL (0.2-1.0) Aspartate Amino Transferase (AST) 26 U/L (15-37) Alanine Aminotransferase (ALT) 39 U/L (16-63) Alkaline Phosphatase 66 U/L (46-116) Troponin I Quantitative < 0.017 ng/mL (0.000-0.055) [id number]-Xwx-C-Type Natriuretic Peptide 53 pg/mL (0-124) Total Protein 5.8 g/dL (6.4-8.2) L Albumin 3.2 g/dL (3.4-5.0) L Albumin/Globulin Ratio 1.2 (1.0-1.7) White Blood Count 6.6 x10^3/uL (4.0-11.0) Red Blood Count 3.75 x10^6/uL (4.30-5.70) L Hemoglobin 11.4 g/dL (13.0-17.5) L Hematocrit 34.0 % (39.0-53.0) L Mean Corpuscular Volume 91 fL (79-100) Mean Corpuscular Hemoglobin 30 pg (25-35) Mean Corpuscular Hemoglobin Concent 33 g/dL (31-37) Red Cell Distribution Width 15.9 % (11.5-14.5) H Platelet Count 166 x10^3/uL (140-400) Neutrophils (%) (Auto) 87 % (31-73) H Lymphocytes (%) (Auto) 5 % (24-48) L Monocytes (%) (Auto) 7 % (0-9) Eosinophils (%) (Auto) 0 % (0-3) Basophils (%) (Auto) 0 % (0-3) Neutrophils # (Auto) 5.7 x10^3uL (1.8-7.7) Lymphocytes # (Auto) 0.3 x10^3/uL (1.0-4.8) L Monocytes # (Auto) 0.5 x10^3/uL (0.0-1.1) Eosinophils # (Auto) 0.0 x10^3/uL (0.0-0.7) Basophils # (Auto) 0.0 x10^3/uL (0.0-0.2) Platelet Estimate Pending Laboratory Tests 03/27/18 03:15 Laboratory Tests 03/27/18 03:00 EKG EKG [EKG: Reviewed] Radiology/Procedures Radiology/Procedures [Chest x-ray: Of your emphysematous changes present on previous chest x-ray.] Course & Med Decision Making Course & Med Decision Making Pertinent Labs and Imaging studies reviewed. (See chart for details) [Patient given breathing treatment, nausea medication and Ativan. Breathing is more relaxed without nausea or regurgitation is returned to baseline. Lab, and imaging studies reviewed. Will discharge home with COPD exacerbation. Return precautions reviewed.] Dragon Disclaimer Dragon Disclaimer This electronic medical record was generated, in whole or in part, using a voice recognition dictation system. Departure Departure Impression: Primary Impression: COPD (chronic obstructive pulmonary disease) Disposition: 01 HOME, SELF-CARE Condition: GOOD Patient Instructions: Chronic Obstructive Pulmonary Disease Exacerbation, Easy- to-Read Additional Instructions: Please take steroids and mucinex as directed and follow up with your PCP in 1-2 days for re-evaluation. Continue home breathing treatments every 2-4 hours while awake as needed. Return to the ED if new or worsening symptoms. Scripts Prednisone (PREDNISONE) 50 Mg Tablet 1 TAB PO DAILY, #5 TAB Prov: ELLI TOMPKINS DO 03/27/18 ELLI TOMPKINS DO Mar 27, 2018 05:33
[2018-03-27 05:52] VITALS: BP 140/95
[2018-03-27 06:17] LABS: % ATYL 1 % (0-0); % BANDS 1 % (0-9); % LYMPHS 4 % (24-48); % MONOS 4 % (0-10); % SEGS 90 % (35-66)
[2018-03-27 06:18] LABS: MICROCYTOSIS SLIGHT; PLT ESTIMATE ADEQUATE (ADEQUATE); SPHEROCYTES OCC
[2018-03-27 06:19] LABS: OVALOCYTES OCC; POIKILOCYTOSIS SLIGHT; POLYCHROMASIA SLIGHT
--- NOTE | 2018-03-27 07:47 | RAD ---
Portable chest, 03/27/2018: HISTORY: Shortness of breath Comparison is made to a study from 03/25/2018. There are emphysematous changes in the lungs with a large bulla on the left. The heart size is normal. There is slight prominence of the right basilar pulmonary markings which is unchanged. No consolidating infiltrate is seen. There is no evidence of pleural fluid. IMPRESSION: 1. Severe emphysema. 2. No acute abnormality is detected with no significant change since 03/25/2018. Electronically signed by: Ciro Becerra MD (03/27/2018 7:44 AM) [facility]
--- NOTE | 2018-03-27 14:33 | EKG ---
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
== END 2018-03-27 05:56 | disposition home or self-care (01) ==
LOC: ER 02:16
DX: J44.9 Chronic obstructive pulmonary disease, unspecified (principal); F41.9 Anxiety disorder, unspecified; E78.00 Pure hypercholesterolemia, unspecified; I11.0 Hypertensive heart disease with heart failure; I50.9 Heart failure, unspecified; Z88.6 Allergy status to analgesic agent
CPT/HCPCS: 36415; 71045; 80053; 83880; 84484; 85007; 85025; 93005; 96374; 96375; 99284; J2060; J3490

== ENCOUNTER 2018-03-27 23:50 | Emergency (ER) | payer MEDICARE, MEDICAID ==
[~2018-03-27] VITALS: Ht 180.3 cm; Wt 72.1 kg
[2018-03-28 00:01] VITALS: BP 117/78
--- NOTE | 2018-03-28 00:42 | PHYS DOC ---
Past Medical History Past Medical History: Anxiety, Bronchitis, CHF, COPD, High Cholesterol, Hypertension, Lung Disease, Other Additional Past Medical Histor: EMPHYSEMA-on 3 L NC, PREDIABETIC Past Surgical History: Other Additional Past Surgical Histo: INGUINAL HERNIA REPAIR X2 Alcohol Use: None Drug Use: None Adult General Chief Complaint Chief Complaint: SHORTNESS OF BREATH HPI HPI Patient is a 57 year old male who presents with shortness of breath. This is his usual shortness of breath that he gets with anxiety when he takes breathing treatments for his COPD. No worse than usual. Patient is on chronic home oxygen therapy. No recent fever. Patient was seen earlier, in the past 24 hours, for the same thing. Patient reports that he is taking his medicines as prescribed. Symptoms are currently mild.[] Review of Systems Review of Systems Constitutional: Denies fever or chills [] Eyes: Denies change in visual acuity, redness, or eye pain [] HENT: Denies nasal congestion or sore throat [] Respiratory: See history of present illness[] Cardiovascular: No chest pain or palpitations[] GI: Denies abdominal pain, nausea, vomiting, bloody stools or diarrhea [] : Denies dysuria or hematuria [] Musculoskeletal: Denies back pain or joint pain [] Integument: Denies rash or skin lesions [] Neurologic: Denies headache, focal weakness or sensory changes [] Endocrine: Denies polyuria or polydipsia [] All other systems were reviewed and found to be within normal limits, except as documented in this note. Current Medications Current Medications Current Medications Medications (Trade) Dose Ordered Sig/Candy Start Time Stop Time Status Last Admin Dose Admin Albuterol/ Ipratropium (Duoneb) 3 ml STK-MED ONCE 03/28/18 01:49 03/28/18 01:50 DC Allergies Allergies Allergies Coded Allergies Type Severity Reaction Last Updated Verified acetaminophen Allergy Intermediate TAKES NORCO AT HOME 01/29/18 Yes Physical Exam Physical Exam Constitutional: Well developed, well nourished, no acute distress, non-toxic appearance. [] HENT: Normocephalic, atraumatic, bilateral external ears normal, oropharynx moist, no oral exudates, nose normal. [] Eyes: PERRLA, EOMI, conjunctiva normal, no discharge. [] Neck: Normal range of motion, no tenderness, supple, no stridor. [] Cardiovascular:Heart rate regular rhythm, no murmur [] Lungs & Thorax: Scattered end expiratory wheezes[] Abdomen: Bowel sounds normal, soft, no tenderness, no masses, no pulsatile masses. [] Skin: Warm, dry, no erythema, no rash. [] Back: No tenderness, no CVA tenderness. [] Extremities: No tenderness, no cyanosis, no clubbing, ROM intact, no edema. [] Neurologic: Alert and oriented X 3, normal motor function, normal sensory function, no focal deficits noted. [] Psychologic: Affect normal, judgement normal, mood normal. [] Current Patient Data Vital Signs Vital Signs Date Time Temp Pulse Resp B/P (MAP) Pulse Ox O2 Delivery O2 Flow Rate FiO2 03/28/18 01:59 98 Nasal Cannula 2.0 03/28/18 00:01 98.1 92 14 117/78 (91) 98.1 Lab Values Laboratory Tests Test 03/28/18 01:05 White Blood Count 6.6 x10^3/uL (4.0-11.0) Red Blood Count 3.79 x10^6/uL (4.30-5.70) L Hemoglobin 11.5 g/dL (13.0-17.5) L Hematocrit 34.2 % (39.0-53.0) L Mean Corpuscular Volume 90 fL (79-100) Mean Corpuscular Hemoglobin 30 pg (25-35) Mean Corpuscular Hemoglobin Concent 34 g/dL (31-37) Red Cell Distribution Width 16.1 % (11.5-14.5) H Platelet Count 177 x10^3/uL (140-400) Neutrophils (%) (Auto) 88 % (31-73) H Lymphocytes (%) (Auto) 5 % (24-48) L Monocytes (%) (Auto) 7 % (0-9) Eosinophils (%) (Auto) 0 % (0-3) Basophils (%) (Auto) 0 % (0-3) Neutrophils # (Auto) 5.8 x10^3uL (1.8-7.7) Lymphocytes # (Auto) 0.3 x10^3/uL (1.0-4.8) L Monocytes # (Auto) 0.4 x10^3/uL (0.0-1.1) Eosinophils # (Auto) 0.0 x10^3/uL (0.0-0.7) Basophils # (Auto) 0.0 x10^3/uL (0.0-0.2) Segmented Neutrophils % 89 % (35-66) H Lymphocytes % 9 % (24-48) L Monocytes % 2 % (0-10) Platelet Estimate Adequate (ADEQUATE) Anisocytosis Slight Ovalocytes Occ Helmet Cells Occ Sodium Level 141 mmol/L (136-145) Potassium Level 3.4 mmol/L (3.5-5.1) L Chloride Level 103 mmol/L (98-107) Carbon Dioxide Level 34 mmol/L (21-32) H Anion Gap 4 (6-14) L Blood Urea Nitrogen 16 mg/dL (8-26) Creatinine 1.0 mg/dL (0.7-1.3) Estimated GFR (Cockcroft-Gault) 92.9 Glucose Level 86 mg/dL (70-99) Calcium Level 9.2 mg/dL (8.5-10.1) Troponin I Quantitative < 0.017 ng/mL (0.000-0.055) Laboratory Tests 03/28/18 01:05 Laboratory Tests 03/28/18 01:05 EKG EKG [] Radiology/Procedures Radiology/Procedures [] Course & Med Decision Making Course & Med Decision Making Pertinent Labs and Imaging studies reviewed. (See chart for details) Emergency department course and medical decision making: Patient arrived, was placed in bed, tolerated exam well. Patient wanted to see how he was doing before getting a breathing treatment after approximately an hour into his emergency department stay he decided that he would like a nebulized medication treatment which she received. Lungs were clear to auscultation after the breathing treatment. Elected not to repeat chest x-ray since one was performed within the past 24 hours. Patient's cardiac enzymes were negative do not see this as being acute coronary syndrome. Do not see any evidence of hypoxia. Not see based on prior x-ray and current laboratory testing any evidence of pneumonia or pneumothorax. Discussed findings and plan with patient who voiced understanding. All questions were answered.[] Dragon Disclaimer Dragon Disclaimer This electronic medical record was generated, in whole or in part, using a voice recognition dictation system. Departure Departure Impression: Primary Impression: COPD with exacerbation Disposition: HOME, SELF-CARE Condition: IMPROVED Referrals: UNKNOWN PCP NAME (PCP) Patient Instructions: Chronic Obstructive Pulmonary Disease Exacerbation Additional Instructions: Follow-up with your regular doctor within 2 days. Call today to set up the appointment. Return to the ER if worsening difficulty breathing or any other concerns. CHARLES HAHN DO Mar 28, 2018 00:42
[2018-03-28 01:20] LABS: BASO % 0 % (0-3); EOS % 0 % (0-3); HEMATOCRIT 34.2 % (39.0-53.0); HEMOGLOBIN 11.5 g/dL (13.0-17.5); LYMPH # 0.3 x10^3/uL (1.0-4.8); LYMPH % 5 % (24-48); MEAN CORPUSCULAR HEMOGLOBIN 30 pg (25-35); MEAN CORPUSCULAR HGB CONC 34 g/dL (31-37); MEAN CORPUSCULAR VOLUME 90 fL (79-100); MONO # 0.4 x10^3/uL (0.0-1.1); MONO % 7 % (0-9); NEUT # 5.8 x10^3uL (1.8-7.7); NEUT % 88 % (31-73); PLATELET COUNT 177 x10^3/uL (140-400); RED BLOOD COUNT 3.79 x10^6/uL (4.30-5.70); RED CELL DISTRIBUTION WIDTH 16.1 % (11.5-14.5); WHITE BLOOD COUNT 6.6 x10^3/uL (4.0-11.0)
[2018-03-28 01:32] LABS: CALCIUM 9.2 mg/dL (8.5-10.1); GFR 92.9; POTASSIUM 3.4 mmol/L (3.5-5.1)
[2018-03-28] MEDS ORDERED: IPRATRPIUM/ALBUTEROL 0.5/2.5MG 3 ML NEBU. ONE (01:49)
[2018-03-28 02:06] LABS: % LYMPHS 9 % (24-48); % MONOS 2 % (0-10); % SEGS 89 % (35-66); PLT ESTIMATE ADEQUATE (ADEQUATE)
[2018-03-28 02:07] LABS: ANISOCYTOSIS SLIGHT; HELMET CELLS OCC; OVALOCYTES OCC
[2018-03-28] MEDS ORDERED: IPRATRPIUM/ALBUTEROL 0.5/2.5MG 3 ML NEBU. NEB ONE (02:15)
--- NOTE | 2018-04-03 11:35 | EKG ---
[facility] [address] [place] [address] Test Date: 2018-03-28 Test Time: 00:59:08 Pat Name: KAYLA JONES Department: Room: Gender: Test Preparer: : 1960 Requested By: CHARLES HAHN Order Number: [id number] Reading MD: Luis Manuel Thornton MD Measurements Intervals [place] Rate: P: MO: QRS: QRSD: T: QT: QTc: Interpretive Statements SR NON-SPECIFIC ST/T CHANGES Electronically Signed On 04-15-2018 10:17:18 [employer]C [employer]AD [employer]ATE [employer] by Luis Manuel Thornton MD
[2018-05-30] MEDS ORDERED: GUAI100L12 PO (16:45)
[2018-05-30] MEDS ORDERED: AMOX1TAB11 PO (16:45)
[2018-05-30] MEDS ORDERED: DOCU-109 PO (16:45)
[2018-05-30] MEDS ORDERED: ACET325T9 PO (16:45)
[2018-05-30] MEDS ORDERED: MAG30ORA2 PO (16:45)
== END 2018-03-28 03:29 | disposition home or self-care (01) ==
LOC: ER 23:50
DX: J44.1 Chronic obstructive pulmonary disease with (acute) exacerbation (principal); E78.00 Pure hypercholesterolemia, unspecified; I11.0 Hypertensive heart disease with heart failure; I50.9 Heart failure, unspecified; F41.9 Anxiety disorder, unspecified; Z88.6 Allergy status to analgesic agent
CPT/HCPCS: 36415; 80048; 84484; 85007; 85025; 93005; 94640; 99284; J7620

== ENCOUNTER 2018-04-08 00:25 | Emergency (ER) | payer MEDICARE, MEDICAID ==
[~2018-04-08] VITALS: Ht 180.3 cm; Wt 74.8 kg
--- NOTE | 2018-04-08 01:23 | PHYS DOC ---
Past Medical History Past Medical History: Bronchitis, CHF, COPD, Diabetes-Type II, Heart Disease, Hypertension Additional Past Medical Histor: EMPHYSEMA-on 3 L NC, PREDIABETIC Past Surgical History: Other Additional Past Surgical Histo: HERNIA REPAIR Alcohol Use: None Drug Use: None Adult General Chief Complaint Chief Complaint: BACK PAIN OR INJURY HPI HPI Patient is a 57 year old male who presents with chief complaint of back pain. He feels that he is having posterior pain with twisting from [id number] when he twists Direction He Actually Feels a Little Bit Better. He Says When He Breathes out Hard the Pain Is Okay but When He Tries to Take a Regular Breath He Feels a Sharp Pain Bilateral Upper Back Area. Of Note He Recently Had a CT PE Protocol mar 15 is a of This Year. He Says He Went to [facility] That Did X-Rays 3 Days Ago They Gave Him a Medication Lidocaine Patches but They It Is Not Really Helping and He Is Worried about His Lungs He Wants to Make Sure He Doesn't Have Pneumonia so He Came Back in for Reevaluation. pt has chronic edema b/l lower ext usually left greater than right he tells me Review of Systems Review of Systems Constitutional: Denies fever or chills [] Eyes: Denies change in visual acuity, redness, or eye pain [] HENT: Denies nasal congestion or sore throat [] sob similar no change in sputum Cardiovascular: No additional information not addressed in HPI [] GI: Denies abdominal pain, nausea, vomiting, bloody stools or diarrhea [] : Denies dysuria or hematuria [] Musculoskeletal: Integument: Denies rash or skin lesions [] Neurologic: Denies headache, focal weakness or sensory changes [] Endocrine: Denies polyuria or polydipsia [] All other systems were reviewed and found to be within normal limits, except as documented in this note. Current Medications Current Medications Current Medications Medications (Trade) Dose Ordered Sig/Candy Start Time Stop Time Status Last Admin Dose Admin Lorazepam (Ativan) 2 mg 1X ONCE 04/08/18 02:00 04/08/18 02:01 DC 04/08/18 01:52 2 MG Oxycodone HCl (Roxicodone) 10 mg 1X ONCE 04/08/18 01:30 04/08/18 01:33 DC 04/08/18 01:50 10 MG Allergies Allergies Allergies Coded Allergies Type Severity Reaction Last Updated Verified acetaminophen Allergy Intermediate TAKES NORCO AT HOME 01/29/18 Yes Physical Exam Physical Exam Constitutional: Well developed, well nourished, no acute distress, non-toxic appearance. [] HENT: Normocephalic, atraumatic, bilateral external ears normal, oropharynx moist, no oral exudates, nose normal. [] Eyes: PERRLA, EOMI, conjunctiva normal, no discharge. [] Neck: Normal range of motion, no tenderness, supple, no stridor. [] Cardiovascular:Heart rate regular rhythm, no murmur [] Lungs & Thorax: Distant breath sounds mild increase in respiratory effort baseline for this patient. Abdomen: Bowel sounds normal, soft, no tenderness, no masses, no pulsatile masses. [] Skin: Warm, dry, no erythema, no rash. [] Back: There is reproducible bilateral paraspinous tenderness to palpation no focal midline tenderness really Extremities: No tenderness, no cyanosis, no clubbing, ROM intact, no edema. [] Neurologic: Alert and oriented X 3, normal motor function, normal sensory function, no focal deficits noted. [] Psychologic: Affect normal, judgement normal, mood anxiety noted Current Patient Data Vital Signs Vital Signs Date Time Temp Pulse Resp B/P (MAP) Pulse Ox O2 Delivery O2 Flow Rate FiO2 04/08/18 03:24 88 20 130/82 (98) 97 Nasal Cannula 3.0 04/08/18 00:31 97.7 97.7 Lab Values Laboratory Tests Test 04/08/18 01:35 White Blood Count 6.0 x10^3/uL (4.0-11.0) Red Blood Count 3.68 x10^6/uL (4.30-5.70) L Hemoglobin 11.1 g/dL (13.0-17.5) L Hematocrit 33.3 % (39.0-53.0) L Mean Corpuscular Volume 90 fL (79-100) Mean Corpuscular Hemoglobin 30 pg (25-35) Mean Corpuscular Hemoglobin Concent 33 g/dL (31-37) Red Cell Distribution Width 15.4 % (11.5-14.5) H Platelet Count 185 x10^3/uL (140-400) Neutrophils (%) (Auto) 89 % (31-73) H Lymphocytes (%) (Auto) 4 % (24-48) L Monocytes (%) (Auto) 8 % (0-9) Eosinophils (%) (Auto) 0 % (0-3) Basophils (%) (Auto) 0 % (0-3) Neutrophils # (Auto) 5.3 x10^3uL (1.8-7.7) Lymphocytes # (Auto) 0.2 x10^3/uL (1.0-4.8) L Monocytes # (Auto) 0.5 x10^3/uL (0.0-1.1) Eosinophils # (Auto) 0.0 x10^3/uL (0.0-0.7) Basophils # (Auto) 0.0 x10^3/uL (0.0-0.2) Segmented Neutrophils % 84 % (35-66) H Lymphocytes % 8 % (24-48) L Monocytes % 8 % (0-10) Platelet Estimate Adequate (ADEQUATE) Sodium Level 141 mmol/L (136-145) Potassium Level 4.0 mmol/L (3.5-5.1) Chloride Level 99 mmol/L (98-107) Carbon Dioxide Level 35 mmol/L (21-32) H Anion Gap 7 (6-14) Blood Urea Nitrogen 20 mg/dL (8-26) Creatinine 1.2 mg/dL (0.7-1.3) Estimated GFR (Cockcroft-Gault) 75.2 BUN/Creatinine Ratio 17 (6-20) Glucose Level 111 mg/dL (70-99) H Calcium Level 8.9 mg/dL (8.5-10.1) Total Bilirubin 0.7 mg/dL (0.2-1.0) Aspartate Amino Transferase (AST) 18 U/L (15-37) Alanine Aminotransferase (ALT) 32 U/L (16-63) Alkaline Phosphatase 72 U/L (46-116) Total Protein 6.5 g/dL (6.4-8.2) Albumin 3.5 g/dL (3.4-5.0) Albumin/Globulin Ratio 1.2 (1.0-1.7) Laboratory Tests 04/08/18 01:35 Laboratory Tests 04/08/18 01:35 EKG EKG [] Radiology/Procedures Radiology/Procedures [] Impressions: my read neg acute. Course & Med Decision Making Course & Med Decision Making Pertinent Labs and Imaging studies reviewed. (See chart for details) 57-year-old male severe COPD on home oxygen history of anxiety frequent ER visits presenting with back pain reproducible on examination reproducible with twisting certain positions. I considered PE as a possible diagnosis however the patient has definite reproducibility on exam his symptoms essentially resolved after a muscle relaxant in the emergency room and he recently had a negative PE study on March 15 I don't think that it's worse 3 scanning him again when I have overall low suspicion he was given Flexeril and return precautions to come back for any new or worsening symptoms he is not tachycardic his oxygen level was stable on his home nasal cannula as per usual he looks stable to me based on my previous evaluations this patient Dragon Disclaimer Dragon Disclaimer This electronic medical record was generated, in whole or in part, using a voice recognition dictation system. Departure Departure Impression: Primary Impression: Back pain Disposition: 01 HOME, SELF-CARE Condition: STABLE Referrals: UNKNOWN PCP NAME (PCP) Scripts Cyclobenzaprine Hcl (CYCLOBENZAPRINE HCL) 5 Mg Tablet 5 MG PO PRN TID PRN for PAIN, #15 TAB Prov: TEVIN GOODWIN MD 04/08/18 TEVIN GOODWIN MD Apr 08, 2018 01:23
[2018-04-08] MEDS ORDERED: oxyCODONE IR 5 MG TABLET PO ONE (01:30)
[2018-04-08 01:48] LABS: BASO % 0 % (0-3); EOS % 0 % (0-3); HEMATOCRIT 33.3 % (39.0-53.0); HEMOGLOBIN 11.1 g/dL (13.0-17.5); LYMPH # 0.2 x10^3/uL (1.0-4.8); LYMPH % 4 % (24-48); MEAN CORPUSCULAR HEMOGLOBIN 30 pg (25-35); MEAN CORPUSCULAR HGB CONC 33 g/dL (31-37); MEAN CORPUSCULAR VOLUME 90 fL (79-100); MONO # 0.5 x10^3/uL (0.0-1.1); MONO % 8 % (0-9); NEUT # 5.3 x10^3uL (1.8-7.7); NEUT % 89 % (31-73); PLATELET COUNT 185 x10^3/uL (140-400); RED BLOOD COUNT 3.68 x10^6/uL (4.30-5.70); RED CELL DISTRIBUTION WIDTH 15.4 % (11.5-14.5)
[2018-04-08 01:58] LABS: CALCIUM 8.9 mg/dL (8.5-10.1); CREATININE 1.2 mg/dL (0.7-1.3); GFR 75.2
[2018-04-08 02:05] LABS: ALBUMIN 3.5 g/dL (3.4-5.0); ALBUMIN/GLOBULIN RATIO 1.2 (1.0-1.7); TOTAL BILIRUBIN 0.7 mg/dL (0.2-1.0); TOTAL PROTEIN 6.5 g/dL (6.4-8.2)
[2018-04-08 02:29] LABS: % LYMPHS 8 % (24-48); % MONOS 8 % (0-10); % SEGS 84 % (35-66); PLT ESTIMATE ADEQUATE (ADEQUATE)
[2018-04-08] MEDS ORDERED: CYCL5TAB PO (03:14)
[2018-04-08 03:24] VITALS: BP 130/82
--- NOTE | 2018-04-08 06:42 | RAD ---
EXAM: AP View of the chest DATE: 04/08/2018 1:33 AM INDICATION: Shortness of breath, back pain, COPD COMPARISON: 03/27/2018 FINDINGS/ IMPRESSION: Heart is top normal in size. Aorta is tortuous. Advanced bilateral emphysematous changes are seen. No definite pneumothorax. Right pleural thickening versus small pleural effusion. Electronically signed by: Francisco Griggs MD (04/08/2018 6:39 AM) [facility]
[2018-05-30] MEDS ORDERED: GUAI100L12 PO (16:45)
[2018-05-30] MEDS ORDERED: DOCU-109 PO (16:45)
[2018-05-30] MEDS ORDERED: MAG30ORA2 PO (16:45)
[2018-05-30] MEDS ORDERED: AMOX1TAB11 PO (16:45)
[2018-05-30] MEDS ORDERED: ACET325T9 PO (16:45)
== END 2018-04-08 03:25 | disposition home or self-care (01) ==
LOC: ER 00:25
DX: M54.6 Pain in thoracic spine (principal); I11.0 Hypertensive heart disease with heart failure; I50.9 Heart failure, unspecified; J43.9 Emphysema, unspecified; Z98.890 Other specified postprocedural states; Z88.6 Allergy status to analgesic agent
CPT/HCPCS: 36415; 71045; 80053; 85007; 85025; 96372; 99284; J2060

== ENCOUNTER 2018-04-11 22:20 | Inpatient (IN) | payer MEDICARE, MEDICAID ==
[~2018-04-11] VITALS: Ht 180.3 cm; Wt 78.0 kg
[~2018-04-11 22:20] MED LIST changes: +CYCL5TAB PO
[2018-04-11] MEDS ORDERED: MORPHINE SULFATE 2 MG/ML VIAL. IV/SQ PRN (23:00)
[2018-04-11] MEDS ORDERED: IPRATROPIUM BROMIDE 0.5 MG/2.5 ML NEBU. NEB ONE (23:30)
[2018-04-11] MEDS ORDERED: methylPREDNISolone SOD SUCC PF 125 MG/2 ML VIAL. IV ONE (23:30)
[2018-04-11] MEDS ORDERED: ALBUTEROL SULFATE 2.5 MG/3 ML NEBU. NEB ONE (23:30)
[2018-04-12 00:12] LABS: BASO % 0 % (0-3); EOS % 0 % (0-3); HEMATOCRIT 30.9 % (39.0-53.0); HEMOGLOBIN 10.4 g/dL (13.0-17.5); LYMPH # 0.2 x10^3/uL (1.0-4.8); LYMPH % 3 % (24-48); MEAN CORPUSCULAR HEMOGLOBIN 31 pg (25-35); MEAN CORPUSCULAR HGB CONC 34 g/dL (31-37); MEAN CORPUSCULAR VOLUME 91 fL (79-100); MONO # 0.4 x10^3/uL (0.0-1.1); MONO % 7 % (0-9); NEUT # 5.1 x10^3uL (1.8-7.7); NEUT % 89 % (31-73); PLATELET COUNT 187 x10^3/uL (140-400); RED BLOOD COUNT 3.41 x10^6/uL (4.30-5.70); RED CELL DISTRIBUTION WIDTH 15.8 % (11.5-14.5); WHITE BLOOD COUNT 5.7 x10^3/uL (4.0-11.0)
[2018-04-12 00:20] LABS: CALCIUM 8.4 mg/dL (8.5-10.1); CREATININE 0.9 mg/dL (0.7-1.3); GFR 104.9; POTASSIUM 3.3 mmol/L (3.5-5.1)
[2018-04-12 00:27] LABS: ALBUMIN 2.9 g/dL (3.4-5.0); TOTAL BILIRUBIN 0.4 mg/dL (0.2-1.0); TOTAL PROTEIN 5.8 g/dL (6.4-8.2)
[2018-04-12 00:29] LABS: INFLUENZA A PATIENT NEGATIVE (NEGATIVE); INFLUENZA B PATIENT NEGATIVE (NEGATIVE)
[2018-04-12 00:44] LABS: % BANDS 1 % (0-9); % EOS 1 % (0-5); % LYMPHS 4 % (24-48); % METAS 1 % (0-0); % MONOS 7 % (0-10); % MYELOS 1 % (0-0); % SEGS 85 % (35-66); ANISOCYTOSIS SLIGHT; OVALOCYTES FEW; PLT ESTIMATE ADEQUATE (ADEQUATE); POIKILOCYTOSIS SLIGHT; POLYCHROMASIA SLIGHT; TOXIC VACUOLATION SLIGHT
--- NOTE | 2018-04-12 01:03 | PHYS DOC ---
Past Medical History Past Medical History: Bronchitis, CHF, COPD, Diabetes-Type II, Heart Disease, Hypertension Additional Past Medical Histor: EMPHYSEMA-on 3 L NC, PREDIABETIC Past Surgical History: Other Additional Past Surgical Histo: HERNIA REPAIR Alcohol Use: None Drug Use: None Adult General Chief Complaint Chief Complaint: SHORTNESS OF BREATH [facility] HPI Patient is a 57-year-old male who presents with complaint of cough and shortness of breath for the last several days that has been worsening throughout the last 2 days. Patient states that he normally wears 2-3 L of oxygen at home. He states that his shortness breath is getting to the point where the oxygen is just not managing things well. He also complains of productive cough and states that his chest is getting very sore so that it is painful to breathe. He denies any fever. He also denies any abdominal pain, nausea or vomiting. He states that symptoms are worsened with exertion and improved by nothing. Review of Systems Review of Systems Constitutional: Denies fever or chills [] Respiratory: Complains of cough and shortness of breath [] Cardiovascular: No additional information not addressed in HPI [] GI: Denies abdominal pain, nausea, vomiting or diarrhea [] Musculoskeletal: Complains of midthoracic back pain [] Integument: Denies rash or skin lesions [] All other systems were reviewed and found to be within normal limits, except as documented in this note. Current Medications Current Medications Current Medications Medications (Trade) Dose Ordered Sig/[facility] Start Time Stop Time Status Last Admin Dose Admin Albuterol Sulfate (Ventolin Neb Soln) 5 mg 1X ONCE 04/11/18 23:30 04/11/18 23:31 DC 04/11/18 23:34 5 MG Ipratropium [place] (Atrovent) 0.5 mg 1X ONCE 04/11/18 23:30 04/11/18 23:31 DC 04/11/18 23:34 0.5 MG Methylprednisolone Sodium Succinate (SOLU-Medrol 125MG VIAL) 125 mg 1X ONCE 04/11/18 23:30 04/11/18 23:31 DC Morphine Sulfate (Morphine Sulfate) 2 mg PRN Q15MIN PRN 04/11/18 23:00 04/12/18 22:59 Allergies Allergies Allergies Coded Allergies Type Severity Reaction Last Updated Verified acetaminophen Allergy Intermediate TAKES NORCO AT HOME 01/29/18 Yes Physical Exam Physical Exam Constitutional: Well developed, well nourished, no acute distress, non-toxic appearance. [] HENT: Normocephalic, atraumatic, bilateral external ears normal, oropharynx moist, no oral exudates, nose normal. [] Eyes: PERRLA, EOMI, conjunctiva normal, no discharge. [] Neck: Normal range of motion, no tenderness, supple, no stridor. [] Cardiovascular: Regular rate and rhythm[] Lungs & Thorax: Decreased breath sounds are noted bilaterally with inspiratory and expiratory wheezes[] Abdomen: Bowel sounds normal, soft, no tenderness. [] Skin: Warm, dry, no erythema, no rash. [] Extremities: No tenderness, no cyanosis, no clubbing, ROM intact, no edema. [] Neurologic: Alert and oriented X 3, no focal deficits noted. [] Current Patient Data Vital Signs Vital Signs Date Time Temp Pulse Resp B/P (MAP) Pulse Ox O2 Delivery O2 Flow Rate FiO2 04/11/18 23:38 95 Nasal Cannula 3.0 04/11/18 22:25 98.8 107 26 137/77 (97) 98.8 Lab Values Laboratory Tests Test 04/12/18 00:05 White Blood Count 5.7 x10^3/uL (4.0-11.0) Red Blood Count 3.41 x10^6/uL (4.30-5.70) L Hemoglobin 10.4 g/dL (13.0-17.5) L Hematocrit 30.9 % (39.0-53.0) L Mean Corpuscular Volume 91 fL (79-100) Mean Corpuscular Hemoglobin 31 pg (25-35) Mean Corpuscular Hemoglobin Concent 34 g/dL (31-37) Red Cell Distribution Width 15.8 % (11.5-14.5) H Platelet Count 187 x10^3/uL (140-400) Neutrophils (%) (Auto) 89 % (31-73) H Lymphocytes (%) (Auto) 3 % (24-48) L Monocytes (%) (Auto) 7 % (0-9) Eosinophils (%) (Auto) 0 % (0-3) Basophils (%) (Auto) 0 % (0-3) Neutrophils # (Auto) 5.1 x10^3uL (1.8-7.7) Lymphocytes # (Auto) 0.2 x10^3/uL (1.0-4.8) L Monocytes # (Auto) 0.4 x10^3/uL (0.0-1.1) Eosinophils # (Auto) 0.0 x10^3/uL (0.0-0.7) Basophils # (Auto) 0.0 x10^3/uL (0.0-0.2) Segmented Neutrophils % 85 % (35-66) H Band Neutrophils % 1 % (0-9) Lymphocytes % 4 % (24-48) L Monocytes % 7 % (0-10) Eosinophils % 1 % (0-5) Metamyelocytes % 1 % (0-0) H Myelocytes % 1 % (0-0) H Toxic Vacuolation Slight Platelet Estimate Adequate (ADEQUATE) Polychromasia Slight Poikilocytosis Slight Anisocytosis Slight Ovalocytes Few Sodium Level 145 mmol/L (136-145) Potassium Level 3.3 mmol/L (3.5-5.1) L Chloride Level 104 mmol/L (98-107) Carbon Dioxide Level 36 mmol/L (21-32) H Anion Gap 5 (6-14) L Blood Urea Nitrogen 18 mg/dL (8-26) Creatinine 0.9 mg/dL (0.7-1.3) Estimated GFR (Cockcroft-Gault) 104.9 BUN/Creatinine Ratio 20 (6-20) Glucose Level 104 mg/dL (70-99) H Calcium Level 8.4 mg/dL (8.5-10.1) L Total Bilirubin 0.4 mg/dL (0.2-1.0) Aspartate Amino Transferase (AST) 15 U/L (15-37) Alanine Aminotransferase (ALT) 23 U/L (16-63) Alkaline Phosphatase 71 U/L (46-116) Troponin I Quantitative < 0.017 ng/mL (0.000-0.055) YM-Ppk-J-Type Natriuretic Peptide 104 pg/mL (0-124) Total Protein 5.8 g/dL (6.4-8.2) L Albumin 2.9 g/dL (3.4-5.0) L Albumin/Globulin Ratio 1.0 (1.0-1.7) Influenza Type A Antigen Negative (NEGATIVE) Influenza Type B Antigen Negative (NEGATIVE) Laboratory Tests 04/12/18 00:05 Laboratory Tests 04/12/18 00:05 EKG EKG [] Interpretation Time: EKG demonstrates normal sinus rhythm with rate of 76. Radiology/Procedures Radiology/Procedures [] Impressions: Chest x-ray demonstrates no acute process. Course & Med Decision Making Course & Med Decision Making Pertinent Labs and Imaging studies reviewed. (See chart for details) [] Dragon Disclaimer Dragon Disclaimer This electronic medical record was generated, in whole or in part, using a voice recognition dictation system. Departure Departure Impression: Primary Impression: COPD with exacerbation Additional Impression: Acute bronchitis Disposition: ADMITTED INPATIENT Admitting Physician: Lico Pressley Condition: IMPROVED Referrals: UNKNOWN PCP NAME (PCP) Problem Qualifiers Additional Impression: Acute bronchitis Bronchitis organism: unspecified organism Qualified Codes: J20.9 - Acute bronchitis, unspecified JULIETA DAWSON Jr. DO Apr 12, 2018 01:03
[2018-04-12] MEDS ORDERED: ONDANSETRON PF 4 MG/2 ML VIAL. IV PRN (01:15)
[2018-04-12] MEDS ORDERED: cefTRIAXone IV Push 1 GM VIAL. IVP ONE (01:30)
--- NOTE | 2018-04-12 02:16 | RAD ---
EXAM: AP View of the chest DATE: 04/11/2018 11:12 PM INDICATION: DIFFICULTY BREATHING COMPARISON: No Prior FINDINGS/ IMPRESSION: The heart is not enlarged. Mediastinal and hilar contours are normal. Patchy opacities right lung base likely atelectasis/scarring. Marked emphysematous changes are seen left greater than right, with prominent lucency in the left apex, stable No pleural effusion or pneumothorax. Electronically signed by: Francisco Griggs MD (04/12/2018 2:13 AM) [place] [id number]
--- NOTE | 2018-04-12 02:30 | NUR ---
The patient, KAYLA JONES, 57 y/o, M admitted by TOMAS BAIG MD, was given written information regarding hospital policies, unit procedures and contact persons. Valuables were checked and all questions answered. VSS. Will continue to monitor.
[2018-04-12] MEDS: MORPHINE SULFATE 2 MG/ML VIAL. IV PRN ×3 (02:49→17:05)
[2018-04-12 03:00] VITALS: BP 154/50
[2018-04-12] MEDS ORDERED: C.DIFF MED SCREEN BY RX. MC ONE (03:15)
[2018-04-12 07:00] VITALS: BP 148/98
[2018-04-12] MEDS: IPRATRPIUM/ALBUTEROL 0.5/2.5MG 3 ML NEBU. NEB SCH ×4 (07:53→19:18)
[2018-04-12] MEDS ORDERED: PANTOPRAZOLE 40 MG TABLET.DR. PO ONE (10:30)
--- NOTE | 2018-04-12 10:58 | EKG ---
[facility] [address] [place] [address] Test Date: 2018-04-11 Test Time: 23:48:34 Pat Name: KAYLA JONES Department: Room: 528 1 Gender: M [employer]: AALIYAH : 1960 Requested By: JULIETA DAWSON Order Number: [id number] Reading MD: Luis Manuel Thornton MD Measurements Intervals [place] Rate: 76 P: 60 SD: 168 QRS: 23 QRSD: 84 T: 59 QT: 372 QTc: 418 Interpretive Statements SINUS RHYTHM ATRIAL PREMATURE COMPLEX(ES) Electronically Signed On 04-16-2018 7:59:17 [employer]IOR [employer]IA [employer] by Luis Manuel Thornton MD
[2018-04-12 11:00] VITALS: BP 128/80
--- NOTE | 2018-04-12 12:29 | PDOC1 ---
History and Physical Date of Admission Date of Admission DATE: 04/12/18 TIME: 12:27 Identification/Chief Complaint Chief Complaint cough and shortness of breath for the last several days that has been worsening throughout the last 2 days. Patient states that he normally wears 2-3 L of oxygen at home. He states that his shortness breath is getting to the point where the oxygen is just not HELPING HIS SYMPTOMS HE can barely walk without struggling to breathe, his aDL' have been affected recent echo demonstrates DD RECENT CT CHEST CONFIRMS SEVERE EMPHYSEMA Past Medical History Past Medical History Past Medical History Past Medical History: Bronchitis, CHF, COPD, Diabetes-Type II, Heart Disease, Hypertension Additional Past Medical Histor: EMPHYSEMA-on 3 L NC, PREDIABETIC Past Surgical History: Other Additional Past Surgical Histo: HERNIA REPAIR Alcohol Use: None Drug Use: None FAMILY HX ASHD PAST MEDICAL HISTORY: Previous bronchitis, pneumonia, chronic obstructive pulmonary disease, tobacco abuse , quit smoking 5 years ago, anxiety, CHF, hyperlipidemia, hypertension, inguinal hernia x 2. ALLERGIES: TYLENOL. FAMILY HISTORY: Coronary artery disease. SOCIAL HISTORY: He quit smoking 5 years ago. No drinking or drugs. Cardiovascular: CHF, HTN, Hyperlipidemia, Pulmonary hypertension Pulmonary: Bronchitis, COPD, Pneumonia CENTRAL NERVOUS SYSTEM: Other GI: GERD, Gastritis, Other Heme/Onc: No pertinent hx Hepatobiliary: Hep A/B/C Psych: No pertinent hx, Anxiety Musculoskeletal: low back pain, Osteoarthritis Rheumatologic: No pertinent hx Infectious disease: No pertinent hx Renal/: No pertinent hx Endocrine: No pertinent hx Past Surgical History Past Surgical History: Hernia Repair Family History Family History: Chronic Bronchitis, Heart Disease, Hypertension Social History Smoke: Quit ALCOHOL: none Drugs: None, Marijuana Current Problem List Problem List Problems Medical Problems: (1) COPD with exacerbation Status: Acute Current Medications Current Medications Current Medications Albuterol Sulfate (Ventolin Neb Soln) 5 mg 1X ONCE NEB Last administered on at 23:34; Start 04/11/18 at 23:30; Stop 04/11/18 at 23:31; Status DC Ipratropium [place] (Atrovent) 0.5 mg 1X ONCE NEB Last administered on at 23:34; Start 04/11/18 at 23:30; Stop 04/11/18 at 23:31; Status DC Methylprednisolone Sodium Succinate (SOLU-Medrol 125MG VIAL) 125 mg 1X ONCE IV Last administered on 04/12/18at 02:03; Start 04/11/18 at 23:30; Stop 04/11/18 at 23:31; Status DC Morphine Sulfate (Morphine Sulfate) 2 mg PRN Q15MIN PRN IV/SQ PAIN GREATER THAN 3/10; Start 04/11/18 at 23:00; Stop 04/12/18 at 22:59 Ondansetron HCl (Zofran) 4 mg PRN Q8HRS PRN IV NAUSEA/VOMITING 1ST CHOICE; Start 04/12/18 at 01:15; Stop 04/13/18 at 01:14 Morphine Sulfate (Morphine Sulfate) 2 mg PRN Q2HR PRN IV SEVERE PAIN Last administered on 04/12/18at 09:58; Start 04/12/18 at 01:15; Stop 04/13/18 at 01:14 Albuterol/ Ipratropium (Duoneb) 3 ml RTQID NEB Last administered on 04/12/18at 11 :50; Start 04/12/18 at 08:00; Stop 04/13/18 at 07:59 Ceftriaxone Sodium (Rocephin) 1 gm 1X ONCE IVP Last administered on 04/12/18at 02:05; Start 04/12/18 at 01:30; Stop 04/12/18 at 01:31; Status DC Pharmacy Consult (C.diff Med Screen By Rx) 1 each 1X ONCE [facility] ; Start 04/12/18 at 03:15; Stop 04/12/18 at 03:16; Status DC Pantoprazole Sodium (Protonix) 40 mg 1X ONCE PO Last administered on 04/12/18at 10:35; Start 04/12/18 at 10:30; Stop 04/12/18 at 10:31; Status DC Pantoprazole Sodium (Protonix) 40 mg DAILYAC PO ; Start 04/13/18 at 07:30 Active Scripts Active Cyclobenzaprine Hcl 5 Mg Tablet 5 Mg PO PRN TID PRN Prednisone 50 Mg Tablet 1 Tab PO DAILY Reglan (Metoclopramide Hcl) 10 Mg Tablet 0.5 Tab PO QID 30 Days Xanax (Alprazolam) 0.5 Mg Tablet 1 Tab PO BID Prednisone 20 Mg Tablet 40 Mg PO DAILY Furosemide 20 Mg Tablet 1 Tab PO DAILY Albuterol Sulfate Neb Soln (Albuterol Sulfate) 2.5 Mg/3 Ml Vial.neb 1 Vial NEB PRN Q4HRS Reported Erythromycin (Erythromycin Base) 250 Mg Tablet 250 Mg PO DAILY Vitamin D3 (Cholecalciferol (Vitamin D3)) 5,000 Unit Tablet 5,000 Unit PO DAILY Potassium Chloride 20 Meq Tablet.er 20 Meq PO DAILY Protonix (Pantoprazole Sodium) 20 Mg Tablet.dr 1 Tab PO DAILY Flonase Allergy Relief (Fluticasone Propionate) 9.9 Ml [place].susp 2 Sprays NS DAILY Atorvastatin Calcium 10 Mg Tablet 10 Mg PO HS Symbicort 160-4.5 Mcg Inhaler (Budesonide/Formoterol Fumarate) 10.2 Gm Hfa.aer.ad 2 Puff IH BID Spiriva (Tiotropium [place]) 18 Mcg Cap.w.dev 2 Inh IH DAILY Allergies Allergies: Coded Allergies: acetaminophen (Verified Allergy, Intermediate, TAKES NORCO AT HOME, ) ROS Review of System Review of Systems Review of Systems Constitutional: Denies fever or chills [] Respiratory: Complains of cough and shortness of breath [] Cardiovascular: No additional information not addressed in HPI [] GI: Denies abdominal pain, nausea, vomiting or diarrhea [] Musculoskeletal: Complains of midthoracic back pain [] Integument: Denies rash or skin lesions [] 14 PT systems were reviewed and found to be within normal limits, except as documented Respiratory: YES: Cough, Shortness of breath, SOB with excertion Physical Exam Physical Exam Physical Exam Physical Exam Constitutional: Well developed, well nourished, no acute distress, non-toxic appearance. [] HENT: Normocephalic, atraumatic, bilateral external ears normal, oropharynx moist, no oral exudates, nose normal. [] Eyes: PERRLA, EOMI, conjunctiva normal, no discharge. [] Neck: Normal range of motion, no tenderness, supple, no stridor. [] Cardiovascular: Regular rate and rhythm[] Lungs & Thorax: Decreased breath sounds are noted bilaterally with inspiratory and expiratory wheezes[] Abdomen: Bowel sounds normal, soft, no tenderness. [] Skin: Warm, dry, no erythema, no rash. [] Extremities: No tenderness, no cyanosis, no clubbing, ROM intact, no edema. [] Neurologic: Alert and oriented X 3, no focal deficits noted. [] General: Oriented X3, Cooperative, mild distress HEENT: Atraumatic, PERRLA, EOMI, Mucous membr. moist/pink Heart: RRR Rectal Exam: not examined Neuro: Normal speech, Cranial nerves 3-12 NL Psych/Mental Status: Mental status NL Vitals Vitals Vital Signs Date Time Temp Pulse Resp B/P (MAP) Pulse Ox O2 Delivery O2 Flow Rate FiO2 04/12/18 11:52 100 Nasal Cannula 1.0 04/12/18 11:00 98.2 71 18 128/80 (96) 98.2 Labs Labs Laboratory Tests Test 04/12/18 00:05 White Blood Count 5.7 x10^3/uL (4.0-11.0) Red Blood Count 3.41 x10^6/uL (4.30-5.70) Hemoglobin 10.4 g/dL (13.0-17.5) Hematocrit 30.9 % (39.0-53.0) Mean Corpuscular Volume 91 fL (79-100) Mean Corpuscular Hemoglobin 31 pg (25-35) Mean Corpuscular Hemoglobin Concent 34 g/dL (31-37) Red Cell Distribution Width 15.8 % (11.5-14.5) Platelet Count 187 x10^3/uL (140-400) Neutrophils (%) (Auto) 89 % (31-73) Lymphocytes (%) (Auto) 3 % (24-48) Monocytes (%) (Auto) 7 % (0-9) Eosinophils (%) (Auto) 0 % (0-3) Basophils (%) (Auto) 0 % (0-3) Neutrophils # (Auto) 5.1 x10^3uL (1.8-7.7) Lymphocytes # (Auto) 0.2 x10^3/uL (1.0-4.8) Monocytes # (Auto) 0.4 x10^3/uL (0.0-1.1) Eosinophils # (Auto) 0.0 x10^3/uL (0.0-0.7) Basophils # (Auto) 0.0 x10^3/uL (0.0-0.2) Segmented Neutrophils % 85 % (35-66) Band Neutrophils % 1 % (0-9) Lymphocytes % 4 % (24-48) Monocytes % 7 % (0-10) Eosinophils % 1 % (0-5) Metamyelocytes % 1 % (0-0) Myelocytes % 1 % (0-0) Toxic Vacuolation Slight Platelet Estimate Adequate (ADEQUATE) Polychromasia Slight Poikilocytosis Slight Anisocytosis Slight Ovalocytes Few Sodium Level 145 mmol/L (136-145) Potassium Level 3.3 mmol/L (3.5-5.1) Chloride Level 104 mmol/L (98-107) Carbon Dioxide Level 36 mmol/L (21-32) Anion Gap 5 (6-14) Blood Urea Nitrogen 18 mg/dL (8-26) Creatinine 0.9 mg/dL (0.7-1.3) Estimated GFR (Cockcroft-Gault) 104.9 BUN/Creatinine Ratio 20 (6-20) Glucose Level 104 mg/dL (70-99) Calcium Level 8.4 mg/dL (8.5-10.1) Total Bilirubin 0.4 mg/dL (0.2-1.0) Aspartate Amino Transf (AST/SGOT) 15 U/L (15-37) Alanine Aminotransferase (ALT/SGPT) 23 U/L (16-63) Alkaline Phosphatase 71 U/L (46-116) Troponin I Quantitative < 0.017 ng/mL (0.000-0.055) XZ-Shh-N-Type Natriuretic Peptide 104 pg/mL (0-124) Total Protein 5.8 g/dL (6.4-8.2) Albumin 2.9 g/dL (3.4-5.0) Albumin/Globulin Ratio 1.0 (1.0-1.7) Influenza Type A Antigen Negative (NEGATIVE) Influenza Type B Antigen Negative (NEGATIVE) Laboratory Tests Test 04/12/18 00:05 White Blood Count 5.7 x10^3/uL (4.0-11.0) Red Blood Count 3.41 x10^6/uL (4.30-5.70) Hemoglobin 10.4 g/dL (13.0-17.5) Hematocrit 30.9 % (39.0-53.0) Mean Corpuscular Volume 91 fL (79-100) Mean Corpuscular Hemoglobin 31 pg (25-35) Mean Corpuscular Hemoglobin Concent 34 g/dL (31-37) Red Cell Distribution Width 15.8 % (11.5-14.5) Platelet Count 187 x10^3/uL (140-400) Neutrophils (%) (Auto) 89 % (31-73) Lymphocytes (%) (Auto) 3 % (24-48) Monocytes (%) (Auto) 7 % (0-9) Eosinophils (%) (Auto) 0 % (0-3) Basophils (%) (Auto) 0 % (0-3) Neutrophils # (Auto) 5.1 x10^3uL (1.8-7.7) Lymphocytes # (Auto) 0.2 x10^3/uL (1.0-4.8) Monocytes # (Auto) 0.4 x10^3/uL (0.0-1.1) Eosinophils # (Auto) 0.0 x10^3/uL (0.0-0.7) Basophils # (Auto) 0.0 x10^3/uL (0.0-0.2) Segmented Neutrophils % 85 % (35-66) Band Neutrophils % 1 % (0-9) Lymphocytes % 4 % (24-48) Monocytes % 7 % (0-10) Eosinophils % 1 % (0-5) Metamyelocytes % 1 % (0-0) Myelocytes % 1 % (0-0) Toxic Vacuolation Slight Platelet Estimate Adequate (ADEQUATE) Polychromasia Slight Poikilocytosis Slight Anisocytosis Slight Ovalocytes Few Sodium Level 145 mmol/L (136-145) Potassium Level 3.3 mmol/L (3.5-5.1) Chloride Level 104 mmol/L (98-107) Carbon Dioxide Level 36 mmol/L (21-32) Anion Gap 5 (6-14) Blood Urea Nitrogen 18 mg/dL (8-26) Creatinine 0.9 mg/dL (0.7-1.3) Estimated GFR (Cockcroft-Gault) 104.9 BUN/Creatinine Ratio 20 (6-20) Glucose Level 104 mg/dL (70-99) Calcium Level 8.4 mg/dL (8.5-10.1) Total Bilirubin 0.4 mg/dL (0.2-1.0) Aspartate Amino Transf (AST/SGOT) 15 U/L (15-37) Alanine Aminotransferase (ALT/SGPT) 23 U/L (16-63) Alkaline Phosphatase 71 U/L (46-116) Troponin I Quantitative < 0.017 ng/mL (0.000-0.055) QT-Cai-Q-Type Natriuretic Peptide 104 pg/mL (0-124) Total Protein 5.8 g/dL (6.4-8.2) Albumin 2.9 g/dL (3.4-5.0) Albumin/Globulin Ratio 1.0 (1.0-1.7) Influenza Type A Antigen Negative (NEGATIVE) Influenza Type B Antigen Negative (NEGATIVE) Images Images CTA chest with contrast dated 03/15/2018. Comparison made to 01/13/2018. CLINICAL INDICATION: Dyspnea. Possible pulmonary embolus. TECHNIQUE: Per contiguous axial imaging of the chest performed following the intravenous administration of 90 cc Omnipaque 350. Study was performed as dedicated PE protocol with thin cut coronal MIPS 3-D reconstruction. One or more of the following individualized dose reduction techniques were utilized for this examination: 1. Automated exposure control 2. Adjustment of the mA and/or kV according to patient size 3. Use of iterative reconstruction technique. FINDINGS: Study is limited due to motion artifact. Contrast bolus is adequate. There is no evidence of central, lobar or proximal segmental pulmonary embolus. The distal segmental and subsegmental branches are not well evaluated based on technique. Heart size is within normal limits. No significant pericardial effusion. Coronary artery calcifications. No mediastinal, hilar or axillary lymphadenopathy. Thyroid gland unremarkable. Central airways are patent. Severe upper zone emphysema with large bulla at the left apex, unchanged. There is mild patchy groundglass opacity throughout both lungs with reticular nodular densities along the bronchovascular bundle of the lower lobes, similar to slightly improved. No pleural effusion. No pneumothorax. Limited images of the upper abdomen unremarkable. No significant bony abnormality. Multilevel spondylosis. IMPRESSION: 1. Limited exam due to motion artifact. No evidence of central, lobar or proximal segmental pulmonary embolus. The distal segmental and subsegmental branches are not well evaluated. 2. Severe emphysema with large bulla at the left apex, unchanged. 3. Patchy groundglass opacity throughout both lungs with some increasing reticulonodular opacity along the bronchovascular bundles of the lower lobes. Consider infectious or inflammatory processes or chronic aspiration. 4. Coronary artery calcifications. Electronically signed by: Mikael Torres MD (03/15/2018 3:31 PM) [id number] History: SWELLING TO THROAT; PREVIOUS STUDY X 1 MONTH AGO Comparison/Correlation: None Findings: Axial images of the neck were obtained without contrast. Sagittal and coronal reformatted images were provided. Fluid level in the right maxillary sinus is moderate size. Mucosal thickening and partial opacification. Small left maxillary sinus fluid level. Parotid and submandibular glands are unremarkable. No inflammatory changes about the pharynx. True and false cords are symmetric. Thyroid gland is unremarkable. Inflammatory changes about the superior thoracic esophagus noted. No enlarged lymph nodes identified. Significant degenerative disc space narrowing of the cervical spine multiple levels evident. Prevertebral soft tissues are unremarkable. Visualized trachea is unremarkable. Severe bullous emphysematous involvement of the lung lira noted greater on the left. Impression: Inflammatory findings about the superior thoracic esophagus. Correlate for underlying esophagitis or neoplastic process. Consider correlation with direct visualization. Significant emphysematous involvement of the upper lung lira. This is especially evident on the left. Consider two-view chest x-ray exam when able for more complete assessment. Acute bilateral maxillary sinusitis. Chronic sinusitis also seen. Electronically signed by: Carlos Roth MD (03/08/2018 12:02 AM) [facility] DICTATED and SIGNED BY: CARLOS ROTH MD DATE: 03/07/18 [id number] PROCEDURE Procedure EGD Indication: "Dysphagia", hypersalivation, Foreign body? Meds: Per anesthesia Findings: ET placed to protect airway. E--apparent yeast in hypopharynx. some irregularity of SQ junction c/w reflux, though healed. NO food, etc. G--Few pre-pyloric erosions. D--Normal to second portion. Nellie. well. IMP: Oral candidiasis; cause of problem? Mostly healed reflux Gastric erosions. REC: Continue PPI, IV for now. Try nystatin swish and swallow; if can't, IV diflucan. MIKAEL GARCIA MD Jan 29, 2018 16:49 SIGNED BY: MIKAEL GARCIA MD DATE: 01/29/18 1649 ATRIA The left atrium size is normal. The right atrium size is normal. The interatrial septum is intact with no evidence for an atrial septal defect or patent foramen ovale as noted on 2-D or Doppler imaging. AORTIC VALVE The aortic valve is calcified but opens well. Doppler and Color Flow revealed no significant aortic regurgitation. There is no significant aortic valvular stenosis. MITRAL VALVE The mitral valve is calcified but opens well. There is no evidence of mitral valve prolapse. There is no mitral valve stenosis. Doppler and Color Flow revealed no mitral valve regurgitation noted. TRICUSPID VALVE The tricuspid valve is normal in structure and function. Doppler and Color Flow revealed no tricuspid valve regurgitation noted. There is no tricuspid valve stenosis. PULMONIC VALVE The pulmonic valve is not well visualized. Doppler and Color Flow revealed trace pulmonic valvular regurgitation. There is no pulmonic valvular stenosis. GREAT VESSELS The aortic root is normal in size. The ascending aorta is not well seen. The IVC is normal in size and collapses >50% with inspiration. PERICARDIAL EFFUSION There is no evidence of significant pericardial effusion. Critical Notification Critical Value: No <Conclusion> Left ventricle systolic function is low normal. The Ejection Fraction is 50%. Transmitral Doppler flow pattern is Grade II-pseudonormal filling dynamics. The left atrium size is normal. The right atrium size is normal. The aortic valve is calcified but opens well. The mitral valve is calcified but opens well. Doppler and Color Flow revealed no mitral valve regurgitation noted. The tricuspid valve is normal in structure and function. The pulmonic valve is not well visualized. There is no evidence of significant pericardial effusion. Signed by : Luke Palomares MD Electronically Approved : 01/18/2018 17:19:09 VTE Prophylaxis Ordered VTE Prophylaxis Devices: Yes VTE Pharmacological Prophylaxi: Yes Assessment/Plan Assessment/Plan IMPRESSION Acute on chronic HYPOXIC AND HYPERCAPNIC RESP FAILURE Dysphagia with prior history of Rosanne esophagitis. HYPERTENSION CHF EXAC GERD SEVERE EMPHYSEMA Left ventricle systolic function is low normal. The Ejection Fraction is 50%. Transmitral Doppler flow pattern is Grade II-pseudonormal filling dynamics. 2018 ECHO Inflammatory findings about the superior thoracic esophagus. Correlate for underlying esophagitis or neoplastic process. Consider correlation with direct visualization. Significant emphysematous involvement of the upper lung lira. This is especially evident on the left. NORMOCYTIC ANEMIA HYPOKALEMIA Severe emphysema with large bulla at the left apex, unchanged. Patchy groundglass opacity throughout both lungs with some increasing reticulonodular opacity along the bronchovascular bundles of the lower lobes. Consider infectious or inflammatory processes or chronic aspiration. PLAN IV STEROIDS SOLUMEDROL 100MG IV Q 8 HRS IV ZITHROMAX, ZOSYN PULM CONSULT CARDS CONSULT GI PROPHYLAXIS DVT PROPHYLAXIS TOMAS RHODES MD Apr 12, 2018 12:29
[2018-04-12] MEDS: FUROSEMIDE 20 MG TABLET PO SCH (12:59)
[2018-04-12] MEDS: METOCLOPRAMIDE 5 MG TABLET. PO SCH ×3 (12:59→20:46)
[2018-04-12] MEDS: ALPRAZolam 0.5 MG TABLET PO SCH ×2 (12:59→20:46)
[2018-04-12] MEDS: CHOLECALCIFEROL (VITAMIN D3) 5,000 UNIT CAPSULE PO SCH (12:59)
[2018-04-12] MEDS ORDERED: POTASSIUM CHLORIDE 20 MEQ TABLET.ER. PO ONE ×2 (13:00→16:45)
[2018-04-12] MEDS ORDERED: POTASSIUM CHLORIDE 20 MEQ TABLET.ER. PO SCH (13:00)
[2018-04-12] MEDS: methylPREDNISolone SOD SUCC PF 125 MG/2 ML VIAL. IV SCH ×2 (13:00→20:46)
[2018-04-12] MEDS ORDERED: PIPERACILLIN/TAZOBACTAM 3.375 GM in IV NORMAL SALINE 50ML 50 ML IV SCH (13:00)
[2018-04-12] MEDS ORDERED: ERYTHROMYCIN BASE 250 MG TABLET PO SCH (13:00)
--- NOTE | 2018-04-12 13:37 | PDOC2 ---
CARDIAC CONSULT DATE OF CONSULT Date of Consult DATE: 04/12/18 TIME: 13:33 REASON FOR CONSULT Reason for Consult: History of diastolic dysfunction with dyspnea. REFERRING PHYSICIAN Referring Physician: Dr. Mccormick SOURCE Source: Chart review, Patient HISTORY OF PRESENT ILLNESS HISTORY OF PRESENT ILLNESS This is a 57 yo male who presented secondary to cough and shortness of breath over the last couple of days and back pain. More SOA today so her came into the ED for further evaluation and treatment. Reports cough productive of green sputum for the last week. No fevers. No CP, dizziness, diaphoresis, palpitations , orthopnea, or LE edema. PAST MEDICAL HISTORY Cardiovascular: CHF, HTN, Hyperlipidemia Pulmonary: Asthma, COPD (chronic O2), Pneumonia CENTRAL NERVOUS SYSTEM: Other (no pertinent hx) GI: GERD Heme/Onc: No pertinent hx Hepatobiliary: No pertinent hx Psych: No pertinent hx Musculoskeletal: low back pain, Osteoarthritis Infectious disease: No pertinent hx ENT: No pertinent hx Renal/: No pertinent hx Endocrine: Diabetes Dermatology: No pertinent hx PAST SURGICAL HISTORY Past Surgical History: Hernia Repair FAMILY HISTORY Family History: Heart Disease, Hypertension SOCIAL HISTORY Smoke: Quit (2013) ALCOHOL: none Drugs: None Lives: with Family CURRENT MEDICATIONS CURRENT MEDICATIONS Current Medications Medications (Trade) Dose Ordered Sig/Candy Route PRN Reason Start Time Stop Time Status Last Admin Dose Admin Albuterol Sulfate (Ventolin Neb Soln) 5 mg 1X ONCE NEB 04/11/18 23:30 04/11/18 23:31 DC 04/11/18 23:34 Ipratropium [place] (Atrovent) 0.5 mg 1X ONCE NEB 04/11/18 23:30 04/11/18 23:31 DC 04/11/18 23:34 Methylprednisolone Sodium Succinate (SOLU-Medrol 125MG VIAL) 125 mg 1X ONCE IV 04/11/18 23:30 04/11/18 23:31 DC 04/12/18 02:03 Morphine Sulfate (Morphine Sulfate) 2 mg PRN Q2HR PRN IV SEVERE PAIN 04/12/18 01:15 04/13/18 01:14 04/12/18 09:58 Albuterol/ Ipratropium (Duoneb) 3 ml RTQID NEB 04/12/18 08:00 04/12/18 12:41 DC 04/12/18 11:50 Ceftriaxone Sodium (Rocephin) 1 gm 1X ONCE IVP 04/12/18 01:30 04/12/18 01:31 DC 04/12/18 02:05 Pantoprazole Sodium (Protonix) 40 mg 1X ONCE PO 04/12/18 10:30 04/12/18 10:31 DC 04/12/18 10:35 Alprazolam (Xanax) 0.5 mg BID PO 04/12/18 13:00 04/12/18 12:59 Furosemide (Lasix) 20 mg DAILY PO 04/12/18 13:00 04/12/18 12:59 Metoclopramide HCl (Reglan) 5 mg QIDACHS PO 04/12/18 13:00 04/12/18 12:59 Vitamin D (Vitamin D3) 5,000 unit DAILY PO 04/12/18 13:00 04/12/18 12:59 Potassium Chloride (Klor-Con) 40 meq 1X ONCE PO 04/12/18 13:00 04/12/18 13:01 DC 04/12/18 13:00 Methylprednisolone Sodium Succinate (SOLU-Medrol 125MG VIAL) 100 mg Q8HRS IV 04/12/18 14:00 04/12/18 13:00 ALLERGIES ALLERGIES: Coded Allergies: acetaminophen (Verified Allergy, Intermediate, TAKES NORCO AT HOME, ) ROS Review of System 14 point ROS conducted with pertinent positives noted above in HPI. PHYSICAL EXAM General: Alert, Oriented X3, Cooperative, No acute distress HEENT: Atraumatic Lungs: Other (coarse throughout ) Heart: Regular rate (SR/ST), Normal S1, Normal S2 Abdomen: Soft, No tenderness Extremities: No edema, Normal pulses Skin: No breakdown, No significant lesion Neuro: Normal speech, Sensation intact Psych/Mental Status: Mental status NL, Mood NL MUSCULOSKELETAL: Osteoarthritic changes both hands VITALS VITALS Vital Signs Date Time Temp Pulse Resp B/P (MAP) Pulse Ox O2 Delivery O2 Flow Rate FiO2 04/12/18 11:52 100 Nasal Cannula 1.0 04/12/18 11:00 98.2 71 18 128/80 (96) 98.2 LABS Lab: Laboratory Tests Test 04/12/18 00:05 White Blood Count 5.7 x10^3/uL (4.0-11.0) Red Blood Count 3.41 x10^6/uL (4.30-5.70) Hemoglobin 10.4 g/dL (13.0-17.5) Hematocrit 30.9 % (39.0-53.0) Mean Corpuscular Volume 91 fL (79-100) Mean Corpuscular Hemoglobin 31 pg (25-35) Mean Corpuscular Hemoglobin Concent 34 g/dL (31-37) Red Cell Distribution Width 15.8 % (11.5-14.5) Platelet Count 187 x10^3/uL (140-400) Neutrophils (%) (Auto) 89 % (31-73) Lymphocytes (%) (Auto) 3 % (24-48) Monocytes (%) (Auto) 7 % (0-9) Eosinophils (%) (Auto) 0 % (0-3) Basophils (%) (Auto) 0 % (0-3) Neutrophils # (Auto) 5.1 x10^3uL (1.8-7.7) Lymphocytes # (Auto) 0.2 x10^3/uL (1.0-4.8) Monocytes # (Auto) 0.4 x10^3/uL (0.0-1.1) Eosinophils # (Auto) 0.0 x10^3/uL (0.0-0.7) Basophils # (Auto) 0.0 x10^3/uL (0.0-0.2) Segmented Neutrophils % 85 % (35-66) Band Neutrophils % 1 % (0-9) Lymphocytes % 4 % (24-48) Monocytes % 7 % (0-10) Eosinophils % 1 % (0-5) Metamyelocytes % 1 % (0-0) Myelocytes % 1 % (0-0) Toxic Vacuolation Slight Platelet Estimate Adequate (ADEQUATE) Polychromasia Slight Poikilocytosis Slight Anisocytosis Slight Ovalocytes Few Sodium Level 145 mmol/L (136-145) Potassium Level 3.3 mmol/L (3.5-5.1) Chloride Level 104 mmol/L (98-107) Carbon Dioxide Level 36 mmol/L (21-32) Anion Gap 5 (6-14) Blood Urea Nitrogen 18 mg/dL (8-26) Creatinine 0.9 mg/dL (0.7-1.3) Estimated GFR (Cockcroft-Gault) 104.9 BUN/Creatinine Ratio 20 (6-20) Glucose Level 104 mg/dL (70-99) Calcium Level 8.4 mg/dL (8.5-10.1) Total Bilirubin 0.4 mg/dL (0.2-1.0) Aspartate Amino Transf (AST/SGOT) 15 U/L (15-37) Alanine Aminotransferase (ALT/SGPT) 23 U/L (16-63) Alkaline Phosphatase 71 U/L (46-116) Troponin I Quantitative < 0.017 ng/mL (0.000-0.055) OD-Hmt-G-Type Natriuretic Peptide 104 pg/mL (0-124) Total Protein 5.8 g/dL (6.4-8.2) Albumin 2.9 g/dL (3.4-5.0) Albumin/Globulin Ratio 1.0 (1.0-1.7) Influenza Type A Antigen Negative (NEGATIVE) Influenza Type B Antigen Negative (NEGATIVE) ECHOCARDIOGRAM ECHOCARDIOGRAM <Conclusion> Left ventricle systolic function is low normal. The Ejection Fraction is 50%. Transmitral Doppler flow pattern is Grade II-pseudonormal filling dynamics. The left atrium size is normal. The right atrium size is normal. The aortic valve is calcified but opens well. The mitral valve is calcified but opens well. Doppler and Color Flow revealed no mitral valve regurgitation noted. The tricuspid valve is normal in structure and function. The pulmonic valve is not well visualized. There is no evidence of significant pericardial effusion. 01/18/2018 17:19:09 ASSESSMENT/PLAN ASSESSMENT/PLAN 1. Acute on chronic respiratory failure with AE COPD. Pulmonary consulted 2. Chronic diastolic HF; LVEF 50% as noted above. CXR without vascular congestion. No JVD. NT Pro BNP WNL. Doubt acute HF 3. Hypertension; low-normotensive 4. Hyperlipidemia; statin 5. ELVIN- home CPAP 6. Hypokalemia; replaced Recommendations Check Mg- replace as warranted Lung optimization as per pulmonary Supportive care from a CV standpoint. Please call with questions. . ANETA KIRAN APRN Apr 12, 2018 13:37
--- NOTE | 2018-04-12 13:49 | PDOC2 ---
GI CONSULT Reason For Consult: Esophagitis/chest discomfort HPI: HPI: 57 y/o male who we have seen in the past for abnormal swallowing. EGD in 2017 showed oral candidiasis, healed reflux, and gastric erosion. Esophagram in 02/2018 showed GERD and slightly delayed esophageal motility. Was treated w/ Nystatin in the past, takes chronic PPI (pantoprazole 40mg QD), and also tried Reglan 5mg TIDAC during last admission (though I don't believe has continued at home - but is getting here). Tells me back to the ER w/ mid to lower back back that began the other day on his way to the [facility] to get a breathing treatment. Denies injury. Worse w/ deep breathing. Not associated w/ eating or stooling. We were asked to see re: chest discomfort. He denies this along w / swallowing issues (other than occasionally with pills), reporting he now "talks himself into swallowing" because it was suggested that past swallowing issues might have been related to anxiety. As in the past, describes coughing up "a lot of phlegm." Denies odynophagia, bleeding, abd pain, diarrhea, constipation, n/v. RN points out primary has ordered Clotrimazole. PMH: PMH: CHF, OH, COPD/emphysema, pneumonia, GERD, pre-DM, anxiety bilateral inguinal hernia repair FH: Family History: Cancer (mother - brain tumor) Social History: Smoke: Quit ALCOHOL: none Drugs: None, Marijuana ROS: GEN: Denies fevers, chills, sweats HEENT: Denies blurred vision, sore throat CV: Denies chest pain RESP: +SOA +cough GI: Per HPI : Denies hematuria, dysuria ENDO: Denies weight changes NEURO: Denies confusion, dizziness MSK: +back pain SKIN: Denies jaundice, pruritus Vitals: Vitals: Vital Signs Date Time Temp Pulse Resp B/P (MAP) Pulse Ox O2 Delivery O2 Flow Rate FiO2 04/12/18 11:52 100 Nasal Cannula 1.0 04/12/18 11:00 98.2 71 18 128/80 (96) 98.2 Labs: Labs: Laboratory Tests Test 04/12/18 00:05 White Blood Count 5.7 x10^3/uL (4.0-11.0) Red Blood Count 3.41 x10^6/uL (4.30-5.70) Hemoglobin 10.4 g/dL (13.0-17.5) Hematocrit 30.9 % (39.0-53.0) Mean Corpuscular Volume 91 fL (79-100) Mean Corpuscular Hemoglobin 31 pg (25-35) Mean Corpuscular Hemoglobin Concent 34 g/dL (31-37) Red Cell Distribution Width 15.8 % (11.5-14.5) Platelet Count 187 x10^3/uL (140-400) Neutrophils (%) (Auto) 89 % (31-73) Lymphocytes (%) (Auto) 3 % (24-48) Monocytes (%) (Auto) 7 % (0-9) Eosinophils (%) (Auto) 0 % (0-3) Basophils (%) (Auto) 0 % (0-3) Neutrophils # (Auto) 5.1 x10^3uL (1.8-7.7) Lymphocytes # (Auto) 0.2 x10^3/uL (1.0-4.8) Monocytes # (Auto) 0.4 x10^3/uL (0.0-1.1) Eosinophils # (Auto) 0.0 x10^3/uL (0.0-0.7) Basophils # (Auto) 0.0 x10^3/uL (0.0-0.2) Segmented Neutrophils % 85 % (35-66) Band Neutrophils % 1 % (0-9) Lymphocytes % 4 % (24-48) Monocytes % 7 % (0-10) Eosinophils % 1 % (0-5) Metamyelocytes % 1 % (0-0) Myelocytes % 1 % (0-0) Toxic Vacuolation Slight Platelet Estimate Adequate (ADEQUATE) Polychromasia Slight Poikilocytosis Slight Anisocytosis Slight Ovalocytes Few Sodium Level 145 mmol/L (136-145) Potassium Level 3.3 mmol/L (3.5-5.1) Chloride Level 104 mmol/L (98-107) Carbon Dioxide Level 36 mmol/L (21-32) Anion Gap 5 (6-14) Blood Urea Nitrogen 18 mg/dL (8-26) Creatinine 0.9 mg/dL (0.7-1.3) Estimated GFR (Cockcroft-Gault) 104.9 BUN/Creatinine Ratio 20 (6-20) Glucose Level 104 mg/dL (70-99) Calcium Level 8.4 mg/dL (8.5-10.1) Total Bilirubin 0.4 mg/dL (0.2-1.0) Aspartate Amino Transf (AST/SGOT) 15 U/L (15-37) Alanine Aminotransferase (ALT/SGPT) 23 U/L (16-63) Alkaline Phosphatase 71 U/L (46-116) Troponin I Quantitative < 0.017 ng/mL (0.000-0.055) TC-Egg-F-Type Natriuretic Peptide 104 pg/mL (0-124) Total Protein 5.8 g/dL (6.4-8.2) Albumin 2.9 g/dL (3.4-5.0) Albumin/Globulin Ratio 1.0 (1.0-1.7) Influenza Type A Antigen Negative (NEGATIVE) Influenza Type B Antigen Negative (NEGATIVE) Allergies: Coded Allergies: acetaminophen (Verified Allergy, Intermediate, TAKES NORCO AT HOME, ) Medications: Current Medications Medications (Trade) Dose Ordered Sig/Candy Route PRN Reason Start Time Stop Time Status Last Admin Dose Admin Albuterol Sulfate (Ventolin Neb Soln) 5 mg 1X ONCE NEB 04/11/18 23:30 04/11/18 23:31 DC 04/11/18 23:34 Ipratropium [place] (Atrovent) 0.5 mg 1X ONCE NEB 04/11/18 23:30 04/11/18 23:31 DC 04/11/18 23:34 Methylprednisolone Sodium Succinate (SOLU-Medrol 125MG VIAL) 125 mg 1X ONCE IV 04/11/18 23:30 04/11/18 23:31 DC 04/12/18 02:03 Morphine Sulfate (Morphine Sulfate) 2 mg PRN Q2HR PRN IV SEVERE PAIN 04/12/18 01:15 04/13/18 01:14 04/12/18 09:58 Albuterol/ Ipratropium (Duoneb) 3 ml RTQID NEB 04/12/18 08:00 04/12/18 12:41 DC 04/12/18 11:50 Ceftriaxone Sodium (Rocephin) 1 gm 1X ONCE IVP 04/12/18 01:30 04/12/18 01:31 DC 04/12/18 02:05 Pantoprazole Sodium (Protonix) 40 mg 1X ONCE PO 04/12/18 10:30 04/12/18 10:31 DC 04/12/18 10:35 Alprazolam (Xanax) 0.5 mg BID PO 04/12/18 13:00 04/12/18 12:59 Furosemide (Lasix) 20 mg DAILY PO 04/12/18 13:00 04/12/18 12:59 Metoclopramide HCl (Reglan) 5 mg QIDACHS PO 04/12/18 13:00 04/12/18 12:59 Vitamin D (Vitamin D3) 5,000 unit DAILY PO 04/12/18 13:00 04/12/18 12:59 Potassium Chloride (Klor-Con) 40 meq 1X ONCE PO 04/12/18 13:00 04/12/18 13:01 DC 04/12/18 13:00 Methylprednisolone Sodium Succinate (SOLU-Medrol 125MG VIAL) 100 mg Q8HRS IV 04/12/18 14:00 04/12/18 13:00 Imaging: Imaging: CXR 04/11 FINDINGS/ IMPRESSION: The heart is not enlarged. Mediastinal and hilar contours are normal. Patchy opacities right lung base likely atelectasis/scarring. Marked emphysematous changes are seen left greater than right, with prominent lucency in the left apex, stable No pleural effusion or pneumothorax. PE: GEN: NAD HEENT: Atraumatic, PERRL LUNGS: NC HEART: RRR ABD: NABS, S/ND/NT EXTREMITY: No edema SKIN: No rashes, no jaundice NEURO/PSYCH: A & O 3, clam A/P: A/P: Back pain, COPD/emphysema H/o abnormal swallowing CRC screen - [place] [facility] Anemia - Hgb a bit below baseline, no obvious bleeding Anxiety -- Seems improved from the last time we saw him - currently denies GI complaints. Continue PPI. Will review Ashli trammell/ Dr. Bryson. Check iron profile. ROBBIE ESCAMILLA Apr 12, 2018 13:49
[2018-04-12] MEDS: FLUTICASONE 50MCG/NASAL SPRAY 16GM BOTTLE. NS SCH (13:54)
[2018-04-12] MEDS: CLOTRIMAZOLE 10 MG TROCHE. MM SCH ×3 (13:55→20:46)
[2018-04-12] MEDS: AZITHROMYCIN 500 MG in IV NORMAL SALINE 250ML 250 ML IV SCH (14:44)
[2018-04-12 15:00] VITALS: BP 96/62
[2018-04-12] MEDS: BUDESONIDE 0.5 MG/2 ML NEBU. NEB SCH ×2 (15:49→19:18)
--- NOTE | 2018-04-12 16:04 | NUR ---
JACOB responding to a referral regarding living condition and transportation problem. Spoke with pt at bedside who reported he usually lives in [place] but came to stay with his sister in [place] yesterday. SW informed him if he intends to live in [place] to follow up with area of aging to get case management services. SW also informed pt he can use his Medicaid for medical transportation. Pt verbalized understanding.
--- NOTE | 2018-04-12 16:52 | PDOC ---
PULMONARY PROGRESS NOTES Vitals Vital Signs Date Time Temp Pulse Resp B/P (MAP) Pulse Ox O2 Delivery O2 Flow Rate FiO2 04/12/18 15:51 100 Nasal Cannula 1.0 04/12/18 15:00 98.4 98 18 96/62 (73) 98.4 General: Alert, No acute distress Lungs: Wheezing, Other Cardiovascular: S1, S2 Abdomen: Soft, Non-tender Extremities: No Edema, Other Labs Laboratory Tests Test 04/12/18 00:05 White Blood Count 5.7 x10^3/uL (4.0-11.0) Red Blood Count 3.41 x10^6/uL (4.30-5.70) Hemoglobin 10.4 g/dL (13.0-17.5) Hematocrit 30.9 % (39.0-53.0) Mean Corpuscular Volume 91 fL (79-100) Mean Corpuscular Hemoglobin 31 pg (25-35) Mean Corpuscular Hemoglobin Concent 34 g/dL (31-37) Red Cell Distribution Width 15.8 % (11.5-14.5) Platelet Count 187 x10^3/uL (140-400) Neutrophils (%) (Auto) 89 % (31-73) Lymphocytes (%) (Auto) 3 % (24-48) Monocytes (%) (Auto) 7 % (0-9) Eosinophils (%) (Auto) 0 % (0-3) Basophils (%) (Auto) 0 % (0-3) Neutrophils # (Auto) 5.1 x10^3uL (1.8-7.7) Lymphocytes # (Auto) 0.2 x10^3/uL (1.0-4.8) Monocytes # (Auto) 0.4 x10^3/uL (0.0-1.1) Eosinophils # (Auto) 0.0 x10^3/uL (0.0-0.7) Basophils # (Auto) 0.0 x10^3/uL (0.0-0.2) Segmented Neutrophils % 85 % (35-66) Band Neutrophils % 1 % (0-9) Lymphocytes % 4 % (24-48) Monocytes % 7 % (0-10) Eosinophils % 1 % (0-5) Metamyelocytes % 1 % (0-0) Myelocytes % 1 % (0-0) Toxic Vacuolation Slight Platelet Estimate Adequate (ADEQUATE) Polychromasia Slight Poikilocytosis Slight Anisocytosis Slight Ovalocytes Few Sodium Level 145 mmol/L (136-145) Potassium Level 3.3 mmol/L (3.5-5.1) Chloride Level 104 mmol/L (98-107) Carbon Dioxide Level 36 mmol/L (21-32) Anion Gap 5 (6-14) Blood Urea Nitrogen 18 mg/dL (8-26) Creatinine 0.9 mg/dL (0.7-1.3) Estimated GFR (Cockcroft-Gault) 104.9 BUN/Creatinine Ratio 20 (6-20) Glucose Level 104 mg/dL (70-99) Calcium Level 8.4 mg/dL (8.5-10.1) Total Bilirubin 0.4 mg/dL (0.2-1.0) Aspartate Amino Transf (AST/SGOT) 15 U/L (15-37) Alanine Aminotransferase (ALT/SGPT) 23 U/L (16-63) Alkaline Phosphatase 71 U/L (46-116) Troponin I Quantitative < 0.017 ng/mL (0.000-0.055) UD-Njr-D-Type Natriuretic Peptide 104 pg/mL (0-124) Total Protein 5.8 g/dL (6.4-8.2) Albumin 2.9 g/dL (3.4-5.0) Albumin/Globulin Ratio 1.0 (1.0-1.7) Influenza Type A Antigen Negative (NEGATIVE) Influenza Type B Antigen Negative (NEGATIVE) Laboratory Tests Test 04/12/18 00:05 White Blood Count 5.7 x10^3/uL (4.0-11.0) Red Blood Count 3.41 x10^6/uL (4.30-5.70) Hemoglobin 10.4 g/dL (13.0-17.5) Hematocrit 30.9 % (39.0-53.0) Mean Corpuscular Volume 91 fL (79-100) Mean Corpuscular Hemoglobin 31 pg (25-35) Mean Corpuscular Hemoglobin Concent 34 g/dL (31-37) Red Cell Distribution Width 15.8 % (11.5-14.5) Platelet Count 187 x10^3/uL (140-400) Neutrophils (%) (Auto) 89 % (31-73) Lymphocytes (%) (Auto) 3 % (24-48) Monocytes (%) (Auto) 7 % (0-9) Eosinophils (%) (Auto) 0 % (0-3) Basophils (%) (Auto) 0 % (0-3) Neutrophils # (Auto) 5.1 x10^3uL (1.8-7.7) Lymphocytes # (Auto) 0.2 x10^3/uL (1.0-4.8) Monocytes # (Auto) 0.4 x10^3/uL (0.0-1.1) Eosinophils # (Auto) 0.0 x10^3/uL (0.0-0.7) Basophils # (Auto) 0.0 x10^3/uL (0.0-0.2) Segmented Neutrophils % 85 % (35-66) Band Neutrophils % 1 % (0-9) Lymphocytes % 4 % (24-48) Monocytes % 7 % (0-10) Eosinophils % 1 % (0-5) Metamyelocytes % 1 % (0-0) Myelocytes % 1 % (0-0) Toxic Vacuolation Slight Platelet Estimate Adequate (ADEQUATE) Polychromasia Slight Poikilocytosis Slight Anisocytosis Slight Ovalocytes Few Sodium Level 145 mmol/L (136-145) Potassium Level 3.3 mmol/L (3.5-5.1) Chloride Level 104 mmol/L (98-107) Carbon Dioxide Level 36 mmol/L (21-32) Anion Gap 5 (6-14) Blood Urea Nitrogen 18 mg/dL (8-26) Creatinine 0.9 mg/dL (0.7-1.3) Estimated GFR (Cockcroft-Gault) 104.9 BUN/Creatinine Ratio 20 (6-20) Glucose Level 104 mg/dL (70-99) Calcium Level 8.4 mg/dL (8.5-10.1) Total Bilirubin 0.4 mg/dL (0.2-1.0) Aspartate Amino Transf (AST/SGOT) 15 U/L (15-37) Alanine Aminotransferase (ALT/SGPT) 23 U/L (16-63) Alkaline Phosphatase 71 U/L (46-116) Troponin I Quantitative < 0.017 ng/mL (0.000-0.055) EM-Sbd-D-Type Natriuretic Peptide 104 pg/mL (0-124) Total Protein 5.8 g/dL (6.4-8.2) Albumin 2.9 g/dL (3.4-5.0) Albumin/Globulin Ratio 1.0 (1.0-1.7) Influenza Type A Antigen Negative (NEGATIVE) Influenza Type B Antigen Negative (NEGATIVE) Medications Active Scripts Medications Dose Route/Sig Max Daily Dose Days Date Category Cyclobenzaprine Hcl 5 Mg Tablet 5 Mg PO PRN TID PRN 04/08/18 Rx Prednisone 50 Mg Tablet 1 Tab PO DAILY 03/27/18 Rx Erythromycin (Erythromycin Base) 250 Mg Tablet 250 Mg PO DAILY 03/15/18 Reported Vitamin D3 (Cholecalciferol (Vitamin D3)) 5,000 Unit Tablet 5,000 Unit PO DAILY 03/15/18 Reported Reglan (Metoclopramide Hcl) 10 Mg Tablet 0.5 Tab PO QID 30 02/14/18 Rx Xanax (Alprazolam) 0.5 Mg Tablet 1 Tab PO BID 02/03/18 Rx Prednisone 20 Mg Tablet 40 Mg PO DAILY 01/31/18 Rx Potassium Chloride 20 Meq Tablet.er 20 Meq PO DAILY 01/13/18 Reported Protonix (Pantoprazole Sodium) 20 Mg Tablet.dr 1 Tab PO DAILY 11/18/17 Reported Flonase Allergy Relief (Fluticasone Propionate) 9.9 Ml [place].susp 2 Sprays NS DAILY 11/18/17 Reported Furosemide 20 Mg Tablet 1 Tab PO DAILY 09/10/17 Rx Atorvastatin Calcium 10 Mg Tablet 10 Mg PO HS 08/21/17 Reported Albuterol Sulfate Neb Soln (Albuterol Sulfate) 2.5 Mg/3 Ml Vial.neb 1 Vial NEB PRN Q4HRS 07/10/17 Rx Symbicort 160-4.5 Mcg Inhaler (Budesonide/Formoterol Fumarate) 10.2 Gm Hfa.aer.ad 2 Puff IH BID 09/21/15 Reported Spiriva (Tiotropium [place]) 18 Mcg Cap.w.dev 2 Inh IH DAILY 09/21/15 Reported Impression . FULL NOTE DICTATED THANKS AECOPSCOTT FULLER MD Apr 12, 2018 16:52
[2018-04-12 19:00] VITALS: BP 128/71
[2018-04-12] MEDS: LACTOBACILLUS RHAMNOSUS GG 1 CAPSULE. PO SCH (20:45)
[2018-04-12] MEDS: ATORVASTATIN CALCIUM 10 MG TABLET. PO SCH (20:45)
[2018-04-12] MEDS: FAMOTIDINE 20 MG TABLET. PO SCH (20:46)
[2018-04-12] MEDS ORDERED: NON FORMULARY ITEM (Budesonide/Formoterol Fumarate (Symbicort 160-4.5 Mcg Inhaler) 2 PUFF) IH SCH (21:00)
[2018-04-12] MEDS: traMADol 50 MG TABLET PO PRN (21:46)
[2018-04-12 23:00] VITALS: BP 145/82
[2018-04-13 03:00] VITALS: BP 139/82
[2018-04-13] MEDS: traMADol 50 MG TABLET PO PRN ×3 (03:17→20:59)
--- NOTE | 2018-04-13 04:45 | CONS ---
DATE OF CONSULTATION: 04/12/2018 ATTENDING PHYSICIAN: Dr. Mccormick. REASON FOR CONSULTATION: The patient seen in pulmonary consultation at the request of Dr. Mccormick for acute on chronic respiratory failure. HISTORY OF PRESENT ILLNESS: The patient is a 57-year-old well known to me with end-stage COPD of the emphysematous type. He has also had significant bullous emphysema and a large bulla that was seen on CT chest. He was due to see a surgeon at [facility] for possible bullectomy. He has been hospitalized since then. His appointment has been rescheduled. He denied fever, chills, or night sweats. PAST MEDICAL HISTORY: Chronic respiratory failure, COPD, type 2 diabetes, hypertension, tobacco dependence, in remission. PAST SURGICAL HISTORY: Status post hernia repair. REVIEW OF SYSTEMS: CONSTITUTIONAL: No fever or chills. EYES: No change in visual acuity. HEENT: No nasal congestion or sore throat. PULMONARY: As indicated above. CARDIOVASCULAR: No chest pain, no pressure. GASTROINTESTINAL: No nausea, vomiting, diarrhea. GENITOURINARY: No dysuria or frequency. MUSCULOSKELETAL: No localized muscle aches or joint pains. SKIN: No new skin rashes. ALLERGIES: ACETAMINOPHEN. CURRENT MEDICATIONS: List was reviewed. SOCIAL HISTORY: He quit tobacco. Denies any alcohol intake. PHYSICAL EXAMINATION: VITAL SIGNS: He was in no significant respiratory distress, currently on 1 liter of oxygen supplementation. HEENT: Eyes, the sclerae were nonicteric. NECK: Jugular venous distention was not elevated. No lymphadenopathy. CHEST: Full expansion. LUNGS: Poor airway flow with no wheezes. CARDIOVASCULAR: Regular rate and rhythm with S1, S2, no S3. ABDOMEN: Soft, nontender, nondistended. EXTREMITIES: No clubbing, cyanosis or edema. NEUROLOGIC: The patient was awake, alert, following commands. A detailed neuro exam was not performed. LABORATORY DATA: Reviewed. Serology for influenza was negative. White count was normal. Chest x-ray: No acute infiltrates. IMPRESSION: 1. Acute on chronic respiratory failure. 2. Acute exacerbation of chronic obstructive pulmonary disease. 3. End-stage bullous emphysema. The patient is scheduled to undergo bullectomy at [facility]. PLAN: 1. Continue current support. 2. The patient instructed on continuing oxygen supplementation, nebulized treatments, steroids. I do appreciate the privilege in sharing this patient's care. SCOTT COOK MD DR: Ophelia JOB#: [id number] / [id number]
[2018-04-13] MEDS: CLOTRIMAZOLE 10 MG TROCHE. MM SCH ×3 (04:59→13:28)
[2018-04-13] MEDS: methylPREDNISolone SOD SUCC PF 125 MG/2 ML VIAL. IV SCH ×3 (05:08→21:00)
[2018-04-13 05:48] LABS: BASO % 0 % (0-3); EOS % 0 % (0-3); HEMOGLOBIN 11.2 g/dL (13.0-17.5); LYMPH # 0.2 x10^3/uL (1.0-4.8); LYMPH % 2 % (24-48); MEAN CORPUSCULAR HEMOGLOBIN 31 pg (25-35); MEAN CORPUSCULAR HGB CONC 34 g/dL (31-37); MEAN CORPUSCULAR VOLUME 90 fL (79-100); MONO # 0.4 x10^3/uL (0.0-1.1); MONO % 4 % (0-9); NEUT # 8.5 x10^3uL (1.8-7.7); NEUT % 94 % (31-73); PLATELET COUNT 211 x10^3/uL (140-400); RED BLOOD COUNT 3.65 x10^6/uL (4.30-5.70); RED CELL DISTRIBUTION WIDTH 15.7 % (11.5-14.5); WHITE BLOOD COUNT 9.1 x10^3/uL (4.0-11.0)
[2018-04-13 06:04] LABS: CREATININE 0.9 mg/dL (0.7-1.3); GFR 104.9; POTASSIUM 4.3 mmol/L (3.5-5.1)
[2018-04-13 07:26] VITALS: BP 158/97
[2018-04-13] MEDS: BUDESONIDE 0.5 MG/2 ML NEBU. NEB SCH ×2 (07:29→19:29)
[2018-04-13] MEDS: IPRATRPIUM/ALBUTEROL 0.5/2.5MG 3 ML NEBU. NEB SCH ×4 (07:29→19:29)
[2018-04-13] MEDS ORDERED: PANTOPRAZOLE 40 MG TABLET.DR. PO SCH ×2 (07:30)
[2018-04-13] MEDS: FAMOTIDINE 20 MG TABLET. PO SCH ×2 (07:42→21:00)
[2018-04-13] MEDS: METOCLOPRAMIDE 5 MG TABLET. PO SCH ×5 (07:42→21:12)
[2018-04-13] MEDS ORDERED: POTASSIUM CHLORIDE 20 MEQ TABLET.ER. PO SCH (08:00)
[2018-04-13] MEDS: FLUTICASONE 50MCG/NASAL SPRAY 16GM BOTTLE. NS SCH (08:14)
[2018-04-13] MEDS: POTASSIUM CHLORIDE 20 MEQ TABLET.ER. PO SCH (08:15)
[2018-04-13] MEDS: CHOLECALCIFEROL (VITAMIN D3) 5,000 UNIT CAPSULE PO SCH (08:15)
[2018-04-13] MEDS: LACTOBACILLUS RHAMNOSUS GG 1 CAPSULE. PO SCH ×2 (08:15→20:59)
[2018-04-13] MEDS: FUROSEMIDE 20 MG TABLET PO SCH (08:16)
[2018-04-13] MEDS: ALPRAZolam 0.5 MG TABLET PO SCH ×2 (08:17→21:00)
[2018-04-13] MEDS ORDERED: NON FORMULARY ITEM (Tiotropium Bromide (Spiriva) 2 INH) IH SCH (09:00)
[2018-04-13] MEDS ORDERED: NON FORMULARY ITEM (Pantoprazole Sodium (Protonix) 1 TAB) PO SCH (09:00)
[2018-04-13] MEDS: CYCLOBENZAPRINE 10 MG TABLET. PO PRN ×2 (09:08→22:46)
[2018-04-13 11:39] VITALS: BP 122/59
[2018-04-13] MEDS: guaiFENesin DM 200MG/20MG 10 ML SYRUP PO PRN (11:47)
[2018-04-13] MEDS: BENZONATATE 100 MG CAPSULE. PO SCH ×2 (13:27→20:59)
[2018-04-13] MEDS: AZITHROMYCIN 500 MG in IV NORMAL SALINE 250ML 250 ML IV SCH (13:28)
--- NOTE | 2018-04-13 13:33 | PDOC ---
PROGRESS NOTES Chief Complaint Chief Complaint Acute on chronic combined respiratory failue COPD with exacerbation and acute bronchitis, Dysphagia with prior history of Rosanne esophagitis. htn CHF chronic combined, EF 50% GERD anemia hypokalmia History of Present Illness History of Present Illness cont steroids, nebs an dsupport on abx, pulm following cont current start antitussives x2 Vitals Vitals Vital Signs Date Time Temp Pulse Resp B/P (MAP) Pulse Ox O2 Delivery O2 Flow Rate FiO2 04/13/18 11:50 100 Nasal Cannula 1.0 04/13/18 11:39 98.5 81 18 122/59 (80) 98.5 Physical Exam General: Alert, Oriented X3, Cooperative, No acute distress Heart: Regular rate (SR/ST), Normal S1, Normal S2 Lungs: Wheezing, Other (end squeak) Abdomen: Soft, No tenderness Extremities: No edema, Normal pulses Skin: No breakdown, No significant lesion Labs LABS Laboratory Tests Test 04/13/18 04:48 White Blood Count 9.1 x10^3/uL (4.0-11.0) Red Blood Count 3.65 x10^6/uL (4.30-5.70) Hemoglobin 11.2 g/dL (13.0-17.5) Hematocrit 33.0 % (39.0-53.0) Mean Corpuscular Volume 90 fL (79-100) Mean Corpuscular Hemoglobin 31 pg (25-35) Mean Corpuscular Hemoglobin Concent 34 g/dL (31-37) Red Cell Distribution Width 15.7 % (11.5-14.5) Platelet Count 211 x10^3/uL (140-400) Neutrophils (%) (Auto) 94 % (31-73) Lymphocytes (%) (Auto) 2 % (24-48) Monocytes (%) (Auto) 4 % (0-9) Eosinophils (%) (Auto) 0 % (0-3) Basophils (%) (Auto) 0 % (0-3) Neutrophils # (Auto) 8.5 x10^3uL (1.8-7.7) Lymphocytes # (Auto) 0.2 x10^3/uL (1.0-4.8) Monocytes # (Auto) 0.4 x10^3/uL (0.0-1.1) Eosinophils # (Auto) 0.0 x10^3/uL (0.0-0.7) Basophils # (Auto) 0.0 x10^3/uL (0.0-0.2) Sodium Level 142 mmol/L (136-145) Potassium Level 4.3 mmol/L (3.5-5.1) Chloride Level 103 mmol/L (98-107) Carbon Dioxide Level 32 mmol/L (21-32) Anion Gap 7 (6-14) Blood Urea Nitrogen 17 mg/dL (8-26) Creatinine 0.9 mg/dL (0.7-1.3) Estimated GFR (Cockcroft-Gault) 104.9 Glucose Level 173 mg/dL (70-99) Calcium Level 9.0 mg/dL (8.5-10.1) Iron Level 40 ug/dL (65-175) Total Iron Binding Capacity 268 ug/dL (250-450) Iron Saturation 15 % (15-34) Review of Systems Review of Systems cough, dyspnea, wheeze, weakness Assessment and Plan Assessmemt and Plan Problems Medical Problems: (1) COPD with exacerbation Status: Acute Comment Review of Relevant I have reviewed the following items franki (where applicable) has been applied. Labs Laboratory Tests Test 04/12/18 00:05 04/12/18 05:00 04/13/18 04:48 White Blood Count 5.7 x10^3/uL (4.0-11.0) 9.1 x10^3/uL (4.0-11.0) Red Blood Count 3.41 x10^6/uL (4.30-5.70) 3.65 x10^6/uL (4.30-5.70) Hemoglobin 10.4 g/dL (13.0-17.5) 11.2 g/dL (13.0-17.5) Hematocrit 30.9 % (39.0-53.0) 33.0 % (39.0-53.0) Mean Corpuscular Volume 91 fL (79-100) 90 fL (79-100) Mean Corpuscular Hemoglobin 31 pg (25-35) 31 pg (25-35) Mean Corpuscular Hemoglobin Concent 34 g/dL (31-37) 34 g/dL (31-37) Red Cell Distribution Width 15.8 % (11.5-14.5) 15.7 % (11.5-14.5) Platelet Count 187 x10^3/uL (140-400) 211 x10^3/uL (140-400) Neutrophils (%) (Auto) 89 % (31-73) 94 % (31-73) Lymphocytes (%) (Auto) 3 % (24-48) 2 % (24-48) Monocytes (%) (Auto) 7 % (0-9) 4 % (0-9) Eosinophils (%) (Auto) 0 % (0-3) 0 % (0-3) Basophils (%) (Auto) 0 % (0-3) 0 % (0-3) Neutrophils # (Auto) 5.1 x10^3uL (1.8-7.7) 8.5 x10^3uL (1.8-7.7) Lymphocytes # (Auto) 0.2 x10^3/uL (1.0-4.8) 0.2 x10^3/uL (1.0-4.8) Monocytes # (Auto) 0.4 x10^3/uL (0.0-1.1) 0.4 x10^3/uL (0.0-1.1) Eosinophils # (Auto) 0.0 x10^3/uL (0.0-0.7) 0.0 x10^3/uL (0.0-0.7) Basophils # (Auto) 0.0 x10^3/uL (0.0-0.2) 0.0 x10^3/uL (0.0-0.2) Segmented Neutrophils % 85 % (35-66) Band Neutrophils % 1 % (0-9) Lymphocytes % 4 % (24-48) Monocytes % 7 % (0-10) Eosinophils % 1 % (0-5) Metamyelocytes % 1 % (0-0) Myelocytes % 1 % (0-0) Toxic Vacuolation Slight Platelet Estimate Adequate (ADEQUATE) Polychromasia Slight Poikilocytosis Slight Anisocytosis Slight Ovalocytes Few Sodium Level 145 mmol/L (136-145) 142 mmol/L (136-145) Potassium Level 3.3 mmol/L (3.5-5.1) 4.3 mmol/L (3.5-5.1) Chloride Level 104 mmol/L (98-107) 103 mmol/L (98-107) Carbon Dioxide Level 36 mmol/L (21-32) 32 mmol/L (21-32) Anion Gap 5 (6-14) 7 (6-14) Blood Urea Nitrogen 18 mg/dL (8-26) 17 mg/dL (8-26) Creatinine 0.9 mg/dL (0.7-1.3) 0.9 mg/dL (0.7-1.3) Estimated GFR (Cockcroft-Gault) 104.9 104.9 BUN/Creatinine Ratio 20 (6-20) Glucose Level 104 mg/dL (70-99) 173 mg/dL (70-99) Calcium Level 8.4 mg/dL (8.5-10.1) 9.0 mg/dL (8.5-10.1) Total Bilirubin 0.4 mg/dL (0.2-1.0) Aspartate Amino Transf (AST/SGOT) 15 U/L (15-37) Alanine Aminotransferase (ALT/SGPT) 23 U/L (16-63) Alkaline Phosphatase 71 U/L (46-116) Troponin I Quantitative < 0.017 ng/mL (0.000-0.055) KG-Nwy-[id number]-Type Natriuretic Peptide 104 pg/mL (0-124) Total Protein 5.8 g/dL (6.4-8.2) Albumin 2.9 g/dL (3.4-5.0) Albumin/Globulin Ratio 1.0 (1.0-1.7) Influenza Type A Antigen Negative (NEGATIVE) Influenza Type B Antigen Negative (NEGATIVE) Magnesium Level 1.8 mg/dL (1.8-2.4) Iron Level 40 ug/dL (65-175) Total Iron Binding Capacity 268 ug/dL (250-450) Iron Saturation 15 % (15-34) Laboratory Tests Test 04/13/18 04:48 White Blood Count 9.1 x10^3/uL (4.0-11.0) Red Blood Count 3.65 x10^6/uL (4.30-5.70) Hemoglobin 11.2 g/dL (13.0-17.5) Hematocrit 33.0 % (39.0-53.0) Mean Corpuscular Volume 90 fL (79-100) Mean Corpuscular Hemoglobin 31 pg (25-35) Mean Corpuscular Hemoglobin Concent 34 g/dL (31-37) Red Cell Distribution Width 15.7 % (11.5-14.5) Platelet Count 211 x10^3/uL (140-400) Neutrophils (%) (Auto) 94 % (31-73) Lymphocytes (%) (Auto) 2 % (24-48) Monocytes (%) (Auto) 4 % (0-9) Eosinophils (%) (Auto) 0 % (0-3) Basophils (%) (Auto) 0 % (0-3) Neutrophils # (Auto) 8.5 x10^3uL (1.8-7.7) Lymphocytes # (Auto) 0.2 x10^3/uL (1.0-4.8) Monocytes # (Auto) 0.4 x10^3/uL (0.0-1.1) Eosinophils # (Auto) 0.0 x10^3/uL (0.0-0.7) Basophils # (Auto) 0.0 x10^3/uL (0.0-0.2) Sodium Level 142 mmol/L (136-145) Potassium Level 4.3 mmol/L (3.5-5.1) Chloride Level 103 mmol/L (98-107) Carbon Dioxide Level 32 mmol/L (21-32) Anion Gap 7 (6-14) Blood Urea Nitrogen 17 mg/dL (8-26) Creatinine 0.9 mg/dL (0.7-1.3) Estimated GFR (Cockcroft-Gault) 104.9 Glucose Level 173 mg/dL (70-99) Calcium Level 9.0 mg/dL (8.5-10.1) Iron Level 40 ug/dL (65-175) Total Iron Binding Capacity 268 ug/dL (250-450) Iron Saturation 15 % (15-34) Medications Current Medications Albuterol Sulfate (Ventolin Neb Soln) 5 mg 1X ONCE NEB Last administered on at 23:34; Start 04/11/18 at 23:30; Stop 04/11/18 at 23:31; Status DC Ipratropium [place] (Atrovent) 0.5 mg 1X ONCE NEB Last administered on at 23:34; Start 04/11/18 at 23:30; Stop 04/11/18 at 23:31; Status DC Methylprednisolone Sodium Succinate (SOLU-Medrol 125MG VIAL) 125 mg 1X ONCE IV Last administered on 04/12/18at 02:03; Start 04/11/18 at 23:30; Stop 04/11/18 at 23:31; Status DC Morphine Sulfate (Morphine Sulfate) 2 mg PRN Q15MIN PRN IV/SQ PAIN GREATER THAN 3/10; Start 04/11/18 at 23:00; Stop 04/12/18 at 22:59; Status DC Ondansetron HCl (Zofran) 4 mg PRN Q8HRS PRN IV NAUSEA/VOMITING 1ST CHOICE; Start 04/12/18 at 01:15; Stop 04/13/18 at 01:14; Status DC Morphine Sulfate (Morphine Sulfate) 2 mg PRN Q2HR PRN IV SEVERE PAIN Last administered on 04/12/18at 17:05; Start 04/12/18 at 01:15; Stop 04/13/18 at 01:14; Status DC Albuterol/ Ipratropium (Duoneb) 3 ml RTQID NEB Last administered on 04/12/18at 11 :50; Start 04/12/18 at 08:00; Stop 04/12/18 at 12:41; Status DC Ceftriaxone Sodium (Rocephin) 1 gm 1X ONCE IVP Last administered on 04/12/18at 02:05; Start 04/12/18 at 01:30; Stop 04/12/18 at 01:31; Status DC Pharmacy Consult (C.diff Med Screen By Rx) 1 each 1X ONCE [facility] ; Start 04/12/18 at 03:15; Stop 04/12/18 at 03:16; Status DC Pantoprazole Sodium (Protonix) 40 mg 1X ONCE PO Last administered on 04/12/18at 10:35; Start 04/12/18 at 10:30; Stop 04/12/18 at 10:31; Status DC Pantoprazole Sodium (Protonix) 40 mg DAILYAC PO ; Start 04/13/18 at 07:30; Stop 04/13/18 at 07:30; Status DC Albuterol Sulfate (Ventolin Neb Soln) 2.5 mg PRN Q4HRS PRN NEB SHORTNESS OF BREATH; Start 04/12/18 at 12:30 Alprazolam (Xanax) 0.5 mg BID PO Last administered on 04/13/18 08:17; Start 04/12/18 at 13:00 Atorvastatin Calcium (Lipitor) 10 mg HS PO Last administered on 04/12/18at 20:45 ; Start 04/12/18 at 21:00 Erythromycin (E-Mycin) 250 mg DAILY PO ; Start 04/12/18 at 13:00; Stop 04/12/18 at 13:00; Status DC Furosemide (Lasix) 20 mg DAILY PO Last administered on 04/13/18at 08:16; Start at 13:00 Metoclopramide HCl (Reglan) 5 mg QIDACHS PO Last administered on 04/13/18at 11:46 ; Start 04/12/18 at 13:00 Non-Formulary Medication (Budesonide/ Formoterol Fumarate (Symbicort 160-4.5 Mcg Inhaler)) 2 puff BID IH ; Start 04/12/18 at 21:00; Status UNV Vitamin D (Vitamin D3) 5,000 unit DAILY PO Last administered on 04/13/18 08:15 ; Start 04/12/18 at 13:00 Cyclobenzaprine HCl (Flexeril) 5 mg PRN TID PRN PO MUSCLE SPASMS Last administered on 04/13/18 09:08; Start 04/12/18 at 12:45 Fluticasone Propionate (Flonase) 2 spray DAILY NS Last administered on 08:14; Start 04/12/18 at 13:00 Non-Formulary Medication (Pantoprazole Sodium (Protonix)) 1 tab DAILY PO ; Start 04/13/18 at 09:00; Status UNV Potassium Chloride (Klor-Con) 20 meq DAILYWBKFT PO ; Start 04/12/18 at 13:00; Status Cancel Non-Formulary Medication (Tiotropium [place] (Spiriva)) 2 inh DAILY IH ; Start 04/13/18 at 09:00; Status UNV Potassium Chloride (Klor-Con) 40 meq 1X ONCE PO Last administered on 04/12/18at 13:00; Start 04/12/18 at 13:00; Stop 04/12/18 at 13:01; Status DC Potassium Chloride (Klor-Con) 20 meq DAILYWBKFT PO ; Start 04/13/18 at 08:00; Stop 04/13/18 at 08:00; Status DC Azithromycin 500 mg/Sodium Chloride 250 ml @ 250 mls/hr Q24H IV Last administered on 04/13/18 13:28; Start 04/12/18 at 13:00 Methylprednisolone Sodium Succinate (SOLU-Medrol 125MG VIAL) 100 mg Q8HRS IV Last administered on 04/13/18 13:28; Start 04/12/18 at 14:00 Pantoprazole Sodium (Protonix) 40 mg DAILYAC PO ; Start 04/13/18 at 07:30; Status UNV Piperacillin Sod/ Tazobactam Sod 3.375 gm/Sodium Chloride 50 ml @ 100 mls/hr Q6HRS IV Last administered on 04/12/18 13:50; Start 04/12/18 at 13:00; Stop 04/12 at 16:51; Status DC Budesonide (Pulmicort) 0.5 mg RTBID NEB Last administered on 04/13/18 07:29; Start 04/12/18 at 13:00 Albuterol/ Ipratropium (Duoneb) 3 ml RTQID NEB Last administered on 04/13/18 11 :48; Start 04/12/18 at 16:00 Clotrimazole (Mycelex) 10 mg 5XDAY MM ; Start 04/12/18 at 14:00 Potassium Chloride (Klor-Con) 40 meq 1X ONCE PO Last administered on 04/12/18 17:00; Start 04/12/18 at 16:45; Stop 04/12/18 at 16:46; Status DC Potassium Chloride (Klor-Con) 20 meq DAILYWBKFT PO Last administered on 08:15; Start 04/13/18 at 08:00 Lactobacillus Rhamnosus (Culturelle) 1 cap BID PO Last administered on 08:15; Start 04/12/18 at 21:00 Famotidine (Pepcid) 20 mg BID PO Last administered on 04/13/18 07:42; Start 04/12/18 at 21:00 Tramadol HCl (Ultram) 50 mg PRN Q6HRS PRN PO MODERATE PAIN Last administered on 3/2/19at 08:19; Start 04/12/18 at 21:45 Guaifenesin (Robitussin Dm) 10 ml PRN Q6HRS PRN PO COUGH Last administered on at 11:47; Start 04/13/18 at 11:45 Benzonatate (Tessalon Perle) 100 mg [id number] PO Last administered on 04/13/18at 13: 27; Start 04/13/18 at 12:00 Active Scripts Active Cyclobenzaprine Hcl 5 Mg Tablet 5 Mg PO PRN TID PRN Prednisone 50 Mg Tablet 1 Tab PO DAILY Reglan (Metoclopramide Hcl) 10 Mg Tablet 0.5 Tab PO QID 30 Days Xanax (Alprazolam) 0.5 Mg Tablet 1 Tab PO BID Prednisone 20 Mg Tablet 40 Mg PO DAILY Furosemide 20 Mg Tablet 1 Tab PO DAILY Albuterol Sulfate Neb Soln (Albuterol Sulfate) 2.5 Mg/3 Ml Vial.neb 1 Vial NEB PRN Q4HRS Reported Erythromycin (Erythromycin Base) 250 Mg Tablet 250 Mg PO DAILY Vitamin D3 (Cholecalciferol (Vitamin D3)) 5,000 Unit Tablet 5,000 Unit PO DAILY Potassium Chloride 20 Meq Tablet.er 20 Meq PO DAILY Protonix (Pantoprazole Sodium) 20 Mg Tablet.dr 1 Tab PO DAILY Flonase Allergy Relief (Fluticasone Propionate) 9.9 Ml [place].susp 2 Sprays NS DAILY Atorvastatin Calcium 10 Mg Tablet 10 Mg PO HS Symbicort 160-4.5 Mcg Inhaler (Budesonide/Formoterol Fumarate) 10.2 Gm Hfa.aer.ad 2 Puff IH BID Spiriva (Tiotropium [place]) 18 Mcg Cap.w.dev 2 Inh IH DAILY Vitals/I & O Vital Sign - Last 24 Hours 04/12/18 04/12/18 04/12/18 04/12/18 15:00 15:51 17:05 17:35 Temp 98.4 98.4 Pulse 98 Resp 18 20 20 B/P (MAP) 96/62 (73) Pulse Ox 97 100 100 100 O2 Delivery Nasal Cannula Nasal Cannula Nasal Cannula Nasal Cannula O2 Flow Rate 2.0 1.0 1.0 1.0 04/12/18 04/12/18 04/12/18 04/12/18 19:00 19:20 19:22 19:38 Temp 98.1 98.1 Pulse 73 Resp 18 B/P (MAP) 128/71 (90) Pulse Ox 99 96 96 O2 Delivery Nasal Cannula Nasal Cannula Nasal Cannula Nasal Cannula O2 Flow Rate 5.0 1.0 1.0 1.0 04/12/18 04/12/18 04/13/18 04/13/18 21:46 23:00 03:00 03:17 Temp 98.1 98.6 98.1 98.6 Pulse 88 66 Resp 20 18 B/P (MAP) 145/82 (103) 139/82 (101) Pulse Ox 96 98 98 98 O2 Delivery Nasal Cannula Nasal Cannula Nasal Cannula Nasal Cannula O2 Flow Rate 1.0 5.0 2.0 1.0 04/13/18 04/13/18 04/13/18 04/13/18 04:17 07:26 07:31 07:32 Temp 98.1 98.1 Pulse 106 Resp 19 B/P (MAP) 158/97 (117) Pulse Ox 98 97 100 100 O2 Delivery Nasal Cannula Nasal Cannula Nasal Cannula O2 Flow Rate 1.0 2.0 1.0 1.0 04/13/18 04/13/18 04/13/18 04/13/18 08:00 08:19 09:19 11:39 Temp 98.5 98.5 Pulse 81 Resp 18 B/P (MAP) 122/59 (80) Pulse Ox 98 O2 Delivery Nasal Cannula Nasal Cannula Nasal Cannula Nasal Cannula O2 Flow Rate 1.0 2.0 04/13/18 11:50 Pulse Ox 100 O2 Delivery Nasal Cannula O2 Flow Rate 1.0 Intake and Output 04/12/18 04/12/18 04/13/18 15:00 23:00 07:00 Intake Total 80 ml 780 ml 480 ml Output Total 400 ml 600 ml Balance 80 ml 380 ml -120 ml PATRIA SHIELDS MD Apr 13, 2018 13:33
[2018-04-13 15:07] VITALS: BP 128/71
--- NOTE | 2018-04-13 15:07 | PDOC ---
PULMONARY PROGRESS NOTES Subjective PT LESS SOA Vitals Vital Signs Date Time Temp Pulse Resp B/P (MAP) Pulse Ox O2 Delivery O2 Flow Rate FiO2 04/13/18 11:50 100 Nasal Cannula 1.0 04/13/18 11:39 98.5 81 18 122/59 (80) 98.5 ROS: No Nausea, No Chest Pain, No Abdominal Pain, No Increase Cough General: Alert, No acute distress Lungs: Wheezing Cardiovascular: S1, S2 Abdomen: Soft, Non-tender Neuro Exam: Alert Extremities: No Edema, Other Skin: Warm Labs Laboratory Tests Test 04/12/18 00:05 04/12/18 05:00 04/13/18 04:48 04/13/18 14:49 White Blood Count 5.7 x10^3/uL (4.0-11.0) 9.1 x10^3/uL (4.0-11.0) Red Blood Count 3.41 x10^6/uL (4.30-5.70) 3.65 x10^6/uL (4.30-5.70) Hemoglobin 10.4 g/dL (13.0-17.5) 11.2 g/dL (13.0-17.5) Hematocrit 30.9 % (39.0-53.0) 33.0 % (39.0-53.0) Mean Corpuscular Volume 91 fL (79-100) 90 fL (79-100) Mean Corpuscular Hemoglobin 31 pg (25-35) 31 pg (25-35) Mean Corpuscular Hemoglobin Concent 34 g/dL (31-37) 34 g/dL (31-37) Red Cell Distribution Width 15.8 % (11.5-14.5) 15.7 % (11.5-14.5) Platelet Count 187 x10^3/uL (140-400) 211 x10^3/uL (140-400) Neutrophils (%) (Auto) 89 % (31-73) 94 % (31-73) Lymphocytes (%) (Auto) 3 % (24-48) 2 % (24-48) Monocytes (%) (Auto) 7 % (0-9) 4 % (0-9) Eosinophils (%) (Auto) 0 % (0-3) 0 % (0-3) Basophils (%) (Auto) 0 % (0-3) 0 % (0-3) Neutrophils # (Auto) 5.1 x10^3uL (1.8-7.7) 8.5 x10^3uL (1.8-7.7) Lymphocytes # (Auto) 0.2 x10^3/uL (1.0-4.8) 0.2 x10^3/uL (1.0-4.8) Monocytes # (Auto) 0.4 x10^3/uL (0.0-1.1) 0.4 x10^3/uL (0.0-1.1) Eosinophils # (Auto) 0.0 x10^3/uL (0.0-0.7) 0.0 x10^3/uL (0.0-0.7) Basophils # (Auto) 0.0 x10^3/uL (0.0-0.2) 0.0 x10^3/uL (0.0-0.2) Segmented Neutrophils % 85 % (35-66) Band Neutrophils % 1 % (0-9) Lymphocytes % 4 % (24-48) Monocytes % 7 % (0-10) Eosinophils % 1 % (0-5) Metamyelocytes % 1 % (0-0) Myelocytes % 1 % (0-0) Toxic Vacuolation Slight Platelet Estimate Adequate (ADEQUATE) Polychromasia Slight Poikilocytosis Slight Anisocytosis Slight Ovalocytes Few Sodium Level 145 mmol/L (136-145) 142 mmol/L (136-145) Potassium Level 3.3 mmol/L (3.5-5.1) 4.3 mmol/L (3.5-5.1) Chloride Level 104 mmol/L (98-107) 103 mmol/L (98-107) Carbon Dioxide Level 36 mmol/L (21-32) 32 mmol/L (21-32) Anion Gap 5 (6-14) 7 (6-14) Blood Urea Nitrogen 18 mg/dL (8-26) 17 mg/dL (8-26) Creatinine 0.9 mg/dL (0.7-1.3) 0.9 mg/dL (0.7-1.3) Estimated GFR (Cockcroft-Gault) 104.9 104.9 BUN/Creatinine Ratio 20 (6-20) Glucose Level 104 mg/dL (70-99) 173 mg/dL (70-99) Calcium Level 8.4 mg/dL (8.5-10.1) 9.0 mg/dL (8.5-10.1) Total Bilirubin 0.4 mg/dL (0.2-1.0) Aspartate Amino Transf (AST/SGOT) 15 U/L (15-37) Alanine Aminotransferase (ALT/SGPT) 23 U/L (16-63) Alkaline Phosphatase 71 U/L (46-116) Troponin I Quantitative < 0.017 ng/mL (0.000-0.055) UV-Bir-O-Type Natriuretic Peptide 104 pg/mL (0-124) Total Protein 5.8 g/dL (6.4-8.2) Albumin 2.9 g/dL (3.4-5.0) Albumin/Globulin Ratio 1.0 (1.0-1.7) Influenza Type A Antigen Negative (NEGATIVE) Influenza Type B Antigen Negative (NEGATIVE) Magnesium Level 1.8 mg/dL (1.8-2.4) Iron Level 40 ug/dL (65-175) Total Iron Binding Capacity 268 ug/dL (250-450) Iron Saturation 15 % (15-34) Glucose (Fingerstick) 216 mg/dL (70-99) Laboratory Tests Test 04/13/18 04:48 04/13/18 14:49 White Blood Count 9.1 x10^3/uL (4.0-11.0) Red Blood Count 3.65 x10^6/uL (4.30-5.70) Hemoglobin 11.2 g/dL (13.0-17.5) Hematocrit 33.0 % (39.0-53.0) Mean Corpuscular Volume 90 fL (79-100) Mean Corpuscular Hemoglobin 31 pg (25-35) Mean Corpuscular Hemoglobin Concent 34 g/dL (31-37) Red Cell Distribution Width 15.7 % (11.5-14.5) Platelet Count 211 x10^3/uL (140-400) Neutrophils (%) (Auto) 94 % (31-73) Lymphocytes (%) (Auto) 2 % (24-48) Monocytes (%) (Auto) 4 % (0-9) Eosinophils (%) (Auto) 0 % (0-3) Basophils (%) (Auto) 0 % (0-3) Neutrophils # (Auto) 8.5 x10^3uL (1.8-7.7) Lymphocytes # (Auto) 0.2 x10^3/uL (1.0-4.8) Monocytes # (Auto) 0.4 x10^3/uL (0.0-1.1) Eosinophils # (Auto) 0.0 x10^3/uL (0.0-0.7) Basophils # (Auto) 0.0 x10^3/uL (0.0-0.2) Sodium Level 142 mmol/L (136-145) Potassium Level 4.3 mmol/L (3.5-5.1) Chloride Level 103 mmol/L (98-107) Carbon Dioxide Level 32 mmol/L (21-32) Anion Gap 7 (6-14) Blood Urea Nitrogen 17 mg/dL (8-26) Creatinine 0.9 mg/dL (0.7-1.3) Estimated GFR (Cockcroft-Gault) 104.9 Glucose Level 173 mg/dL (70-99) Calcium Level 9.0 mg/dL (8.5-10.1) Iron Level 40 ug/dL (65-175) Total Iron Binding Capacity 268 ug/dL (250-450) Iron Saturation 15 % (15-34) Glucose (Fingerstick) 216 mg/dL (70-99) Medications Active Scripts Medications Dose Route/Sig Max Daily Dose Days Date Category Cyclobenzaprine Hcl 5 Mg Tablet 5 Mg PO PRN TID PRN 04/08/18 Rx Prednisone 50 Mg Tablet 1 Tab PO DAILY 03/27/18 Rx Erythromycin (Erythromycin Base) 250 Mg Tablet 250 Mg PO DAILY 03/15/18 Reported Vitamin D3 (Cholecalciferol (Vitamin D3)) 5,000 Unit Tablet 5,000 Unit PO DAILY 03/15/18 Reported Reglan (Metoclopramide Hcl) 10 Mg Tablet 0.5 Tab PO QID 30 02/14/18 Rx Xanax (Alprazolam) 0.5 Mg Tablet 1 Tab PO BID 02/03/18 Rx Prednisone 20 Mg Tablet 40 Mg PO DAILY 01/31/18 Rx Potassium Chloride 20 Meq Tablet.er 20 Meq PO DAILY 01/13/18 Reported Protonix (Pantoprazole Sodium) 20 Mg Tablet.dr 1 Tab PO DAILY 11/18/17 Reported Flonase Allergy Relief (Fluticasone Propionate) 9.9 Ml [place].susp 2 Sprays NS DAILY 11/18/17 Reported Furosemide 20 Mg Tablet 1 Tab PO DAILY 09/10/17 Rx Atorvastatin Calcium 10 Mg Tablet 10 Mg PO HS 08/21/17 Reported Albuterol Sulfate Neb Soln (Albuterol Sulfate) 2.5 Mg/3 Ml Vial.neb 1 Vial NEB PRN Q4HRS 07/10/17 Rx Symbicort 160-4.5 Mcg Inhaler (Budesonide/Formoterol Fumarate) 10.2 Gm Hfa.aer.ad 2 Puff IH BID 09/21/15 Reported Spiriva (Tiotropium [place]) 18 Mcg Cap.w.dev 2 Inh IH DAILY 09/21/15 Reported Impression . IMPRESSION: 1. Acute on chronic respiratory failure. 2. Acute exacerbation of chronic obstructive pulmonary disease. 3. End-stage bullous emphysema. The patient is scheduled to undergo bullectomy at [facility]. Plan . CONTINUE THE SAME 1. Continue current support. 2. The patient instructed on continuing oxygen supplementation, nebulized treatments, steroids. SCOTT COOK MD Apr 13, 2018 15:07
[2018-04-13] MEDS ORDERED: DEXTROSE 50% 25 GM / 50ML DISP.SYRIN. IV PRN ×2 (17:15)
[2018-04-13] MEDS ORDERED: INSULIN GLARGINE 300 UNITS/3 ML INSULN.PEN. SQ ONE (17:30)
[2018-04-13] MEDS: INSULIN LISPRO 300 UNITS/3 ML INSULN.PEN. SQ SCH (17:37)
[2018-04-13 18:57] VITALS: BP 130/64
[2018-04-13] MEDS: ATORVASTATIN CALCIUM 10 MG TABLET. PO SCH (20:59)
[2018-04-13 22:01] VITALS: BP 119/77
[2018-04-14 02:03] VITALS: BP 138/73
[2018-04-14] MEDS: oxyCODONE IR 5 MG TABLET PO PRN ×4 (02:14→21:19)
[2018-04-14] MEDS: ALBUTEROL SULFATE 2.5 MG/3 ML NEBU. NEB PRN (03:14)
[2018-04-14] MEDS: methylPREDNISolone SOD SUCC PF 125 MG/2 ML VIAL. IV SCH ×3 (05:37→21:19)
[2018-04-14 07:00] VITALS: BP 138/84
[2018-04-14] MEDS: IPRATRPIUM/ALBUTEROL 0.5/2.5MG 3 ML NEBU. NEB SCH ×4 (07:31→19:39)
[2018-04-14] MEDS: BUDESONIDE 0.5 MG/2 ML NEBU. NEB SCH ×2 (07:31→19:40)
[2018-04-14] MEDS: FAMOTIDINE 20 MG TABLET. PO SCH ×2 (07:32→21:20)
[2018-04-14] MEDS: METOCLOPRAMIDE 5 MG TABLET. PO SCH ×4 (07:32→21:19)
[2018-04-14] MEDS ORDERED: INSULIN LISPRO 300 UNITS/3 ML INSULN.PEN. SQ SCH ×2 (08:00)
[2018-04-14] MEDS: POTASSIUM CHLORIDE 20 MEQ TABLET.ER. PO SCH (08:01)
[2018-04-14] MEDS: BENZONATATE 100 MG CAPSULE. PO SCH ×3 (08:01→21:20)
[2018-04-14] MEDS: LACTOBACILLUS RHAMNOSUS GG 1 CAPSULE. PO SCH ×2 (08:01→21:18)
[2018-04-14] MEDS: FLUTICASONE 50MCG/NASAL SPRAY 16GM BOTTLE. NS SCH (08:01)
[2018-04-14] MEDS: CHOLECALCIFEROL (VITAMIN D3) 5,000 UNIT CAPSULE PO SCH (08:01)
[2018-04-14] MEDS: ALPRAZolam 0.5 MG TABLET PO SCH ×2 (08:01→21:20)
[2018-04-14] MEDS: FUROSEMIDE 20 MG TABLET PO SCH (08:02)
[2018-04-14] MEDS: CYCLOBENZAPRINE 10 MG TABLET. PO PRN ×2 (08:03→21:20)
[2018-04-14] MEDS: INSULIN LISPRO 300 UNITS/3 ML INSULN.PEN. SQ SCH ×3 (08:12→16:59)
[2018-04-14 11:00] VITALS: BP 103/65
--- NOTE | 2018-04-14 12:18 | PDOC ---
PROGRESS NOTES Chief Complaint Chief Complaint Acute on chronic combined respiratory failue COPD with exacerbation and acute bronchitis, Dysphagia with prior history of Rosanne esophagitis. htn CHF chronic combined, EF 50% GERD anemia hypokalmia History of Present Illness History of Present Illness cont steroids, nebs an dsupport on abx, pulm following cont current start antitussives x2 Vitals Vitals Vital Signs Date Time Temp Pulse Resp B/P (MAP) Pulse Ox O2 Delivery O2 Flow Rate FiO2 04/14/18 11:45 98 Nasal Cannula 1.0 04/14/18 11:00 98.7 102 20 103/65 (78) 98.7 Physical Exam General: Alert, Oriented X3, Cooperative, No acute distress Heart: Regular rate (SR/ST), Normal S1, Normal S2 Lungs: Wheezing Abdomen: Soft, No tenderness Extremities: No edema, Normal pulses Skin: No breakdown, No significant lesion Labs LABS Laboratory Tests Test 04/13/18 14:49 04/13/18 16:48 04/13/18 21:14 04/14/18 07:24 Glucose (Fingerstick) 216 mg/dL (70-99) 253 mg/dL (70-99) 121 mg/dL (70-99) 187 mg/dL (70-99) Test 04/14/18 11:43 Glucose (Fingerstick) 295 mg/dL (70-99) Review of Systems Review of Systems cough better, still weakness, + dyspnea Assessment and Plan Assessmemt and Plan Problems Medical Problems: (1) COPD with exacerbation Status: Acute Comment Review of Relevant I have reviewed the following items franki (where applicable) has been applied. Labs Laboratory Tests Test 04/13/18 04:48 04/13/18 14:49 04/13/18 16:48 04/13/18 21:14 White Blood Count 9.1 x10^3/uL (4.0-11.0) Red Blood Count 3.65 x10^6/uL (4.30-5.70) Hemoglobin 11.2 g/dL (13.0-17.5) Hematocrit 33.0 % (39.0-53.0) Mean Corpuscular Volume 90 fL (79-100) Mean Corpuscular Hemoglobin 31 pg (25-35) Mean Corpuscular Hemoglobin Concent 34 g/dL (31-37) Red Cell Distribution Width 15.7 % (11.5-14.5) Platelet Count 211 x10^3/uL (140-400) Neutrophils (%) (Auto) 94 % (31-73) Lymphocytes (%) (Auto) 2 % (24-48) Monocytes (%) (Auto) 4 % (0-9) Eosinophils (%) (Auto) 0 % (0-3) Basophils (%) (Auto) 0 % (0-3) Neutrophils # (Auto) 8.5 x10^3uL (1.8-7.7) Lymphocytes # (Auto) 0.2 x10^3/uL (1.0-4.8) Monocytes # (Auto) 0.4 x10^3/uL (0.0-1.1) Eosinophils # (Auto) 0.0 x10^3/uL (0.0-0.7) Basophils # (Auto) 0.0 x10^3/uL (0.0-0.2) Sodium Level 142 mmol/L (136-145) Potassium Level 4.3 mmol/L (3.5-5.1) Chloride Level 103 mmol/L (98-107) Carbon Dioxide Level 32 mmol/L (21-32) Anion Gap 7 (6-14) Blood Urea Nitrogen 17 mg/dL (8-26) Creatinine 0.9 mg/dL (0.7-1.3) Estimated GFR (Cockcroft-Gault) 104.9 Glucose Level 173 mg/dL (70-99) Calcium Level 9.0 mg/dL (8.5-10.1) Iron Level 40 ug/dL (65-175) Total Iron Binding Capacity 268 ug/dL (250-450) Iron Saturation 15 % (15-34) Glucose (Fingerstick) 216 mg/dL (70-99) 253 mg/dL (70-99) 121 mg/dL (70-99) Test 04/14/18 07:24 04/14/18 11:43 Glucose (Fingerstick) 187 mg/dL (70-99) 295 mg/dL (70-99) Laboratory Tests Test 04/13/18 14:49 04/13/18 16:48 04/13/18 21:14 04/14/18 07:24 Glucose (Fingerstick) 216 mg/dL (70-99) 253 mg/dL (70-99) 121 mg/dL (70-99) 187 mg/dL (70-99) Test 04/14/18 11:43 Glucose (Fingerstick) 295 mg/dL (70-99) Medications Current Medications Albuterol Sulfate (Ventolin Neb Soln) 5 mg 1X ONCE NEB Last administered on at 23:34; Start 04/11/18 at 23:30; Stop 04/11/18 at 23:31; Status DC Ipratropium [place] (Atrovent) 0.5 mg 1X ONCE NEB Last administered on at 23:34; Start 04/11/18 at 23:30; Stop 04/11/18 at 23:31; Status DC Methylprednisolone Sodium Succinate (SOLU-Medrol 125MG VIAL) 125 mg 1X ONCE IV Last administered on 04/12/18at 02:03; Start 04/11/18 at 23:30; Stop 04/11/18 at 23:31; Status DC Morphine Sulfate (Morphine Sulfate) 2 mg PRN Q15MIN PRN IV/SQ PAIN GREATER THAN 3/10; Start 04/11/18 at 23:00; Stop 04/12/18 at 22:59; Status DC Ondansetron HCl (Zofran) 4 mg PRN Q8HRS PRN IV NAUSEA/VOMITING 1ST CHOICE; Start 04/12/18 at 01:15; Stop 04/13/18 at 01:14; Status DC Morphine Sulfate (Morphine Sulfate) 2 mg PRN Q2HR PRN IV SEVERE PAIN Last administered on 04/12/18at 17:05; Start 04/12/18 at 01:15; Stop 04/13/18 at 01:14; Status DC Albuterol/ Ipratropium (Duoneb) 3 ml RTQID NEB Last administered on 04/12/18at 11 :50; Start 04/12/18 at 08:00; Stop 04/12/18 at 12:41; Status DC Ceftriaxone Sodium (Rocephin) 1 gm 1X ONCE IVP Last administered on 04/12/18at 02:05; Start 04/12/18 at 01:30; Stop 04/12/18 at 01:31; Status DC Pharmacy Consult (C.diff Med Screen By Rx) 1 each 1X ONCE [facility] ; Start 04/12/18 at 03:15; Stop 04/12/18 at 03:16; Status DC Pantoprazole Sodium (Protonix) 40 mg 1X ONCE PO Last administered on 04/12/18 10:35; Start 04/12/18 at 10:30; Stop 04/12/18 at 10:31; Status DC Pantoprazole Sodium (Protonix) 40 mg DAILYAC PO ; Start 04/13/18 at 07:30; Stop 04/13/18 at 07:30; Status DC Albuterol Sulfate (Ventolin Neb Soln) 2.5 mg PRN Q4HRS PRN NEB SHORTNESS OF BREATH Last administered on 04/14/18 03:14; Start 04/12/18 at 12:30 Alprazolam (Xanax) 0.5 mg BID PO Last administered on 04/14/18 08:01; Start 04/12/18 at 13:00 Atorvastatin Calcium (Lipitor) 10 mg HS PO Last administered on 04/13/18 20:59 ; Start 04/12/18 at 21:00 Erythromycin (E-Mycin) 250 mg DAILY PO ; Start 04/12/18 at 13:00; Stop 04/12/18 at 13:00; Status DC Furosemide (Lasix) 20 mg DAILY PO Last administered on 04/14/18 08:02; Start at 13:00 Metoclopramide HCl (Reglan) 5 mg QIDACHS PO Last administered on 04/14/18 11:10 ; Start 04/12/18 at 13:00 Non-Formulary Medication (Budesonide/ Formoterol Fumarate (Symbicort 160-4.5 Mcg Inhaler)) 2 puff BID IH ; Start 04/12/18 at 21:00; Status UNV Vitamin D (Vitamin D3) 5,000 unit DAILY PO Last administered on 04/14/18 08:01 ; Start 04/12/18 at 13:00 Cyclobenzaprine HCl (Flexeril) 5 mg PRN TID PRN PO MUSCLE SPASMS Last administered on 04/14/18 08:03; Start 04/12/18 at 12:45 Fluticasone Propionate (Flonase) 2 spray DAILY NS Last administered on 08:01; Start 04/12/18 at 13:00 Non-Formulary Medication (Pantoprazole Sodium (Protonix)) 1 tab DAILY PO ; Start 04/13/18 at 09:00; Status UNV Potassium Chloride (Klor-Con) 20 meq DAILYWBKFT PO ; Start 04/12/18 at 13:00; Status Cancel Non-Formulary Medication (Tiotropium [place] (Spiriva)) 2 inh DAILY IH ; Start 04/13/18 at 09:00; Status UNV Potassium Chloride (Klor-Con) 40 meq 1X ONCE PO Last administered on 04/12/18at 13:00; Start 04/12/18 at 13:00; Stop 04/12/18 at 13:01; Status DC Potassium Chloride (Klor-Con) 20 meq DAILYWBKFT PO ; Start 04/13/18 at 08:00; Stop 04/13/18 at 08:00; Status DC Azithromycin 500 mg/Sodium Chloride 250 ml @ 250 mls/hr Q24H IV Last administered on 04/13/18at 13:28; Start 04/12/18 at 13:00 Methylprednisolone Sodium Succinate (SOLU-Medrol 125MG VIAL) 100 mg Q8HRS IV Last administered on 04/14/18at 05:37; Start 04/12/18 at 14:00 Pantoprazole Sodium (Protonix) 40 mg DAILYAC PO ; Start 04/13/18 at 07:30; Status UNV Piperacillin Sod/ Tazobactam Sod 3.375 gm/Sodium Chloride 50 ml @ 100 mls/hr Q6HRS IV Last administered on 04/12/18at 13:50; Start 04/12/18 at 13:00; Stop 04/12 at 16:51; Status DC Budesonide (Pulmicort) 0.5 mg RTBID NEB Last administered on 04/14/18at 07:31; Start 04/12/18 at 13:00 Albuterol/ Ipratropium (Duoneb) 3 ml RTQID NEB Last administered on 04/14/18at 11 :44; Start 04/12/18 at 16:00 Clotrimazole (Mycelex) 10 mg 5XDAY MM ; Start 04/12/18 at 14:00; Stop 04/13/18 at 13:47; Status DC Potassium Chloride (Klor-Con) 40 meq 1X ONCE PO Last administered on 04/12/18at 17:00; Start 04/12/18 at 16:45; Stop 04/12/18 at 16:46; Status DC Potassium Chloride (Klor-Con) 20 meq DAILYWBKFT PO Last administered on at 08:01; Start 04/13/18 at 08:00 Lactobacillus Rhamnosus (Culturelle) 1 cap BID PO Last administered on 08:01; Start 04/12/18 at 21:00 Famotidine (Pepcid) 20 mg BID PO Last administered on 04/14/18at 07:32; Start 04/12/18 at 21:00 Tramadol HCl (Ultram) 50 mg PRN Q6HRS PRN PO MODERATE PAIN Last administered on 04/13/18at 20:59; Start 04/12/18 at 21:45 Guaifenesin (Robitussin Dm) 10 ml PRN Q6HRS PRN PO COUGH Last administered on 11:47; Start 04/13/18 at 11:45 Benzonatate (Tessalon Per[place]) 100 mg [id number] PO Last administered on 04/14/18 08: 01; Start 04/13/18 at 12:00 Insulin Human Lispro (HumaLOG) 0-9 UNITS TIDWMEALS SQ ; Start 04/14/18 at 08:00; Stop 04/14/18 at 08:00; Status DC Dextrose (Dextrose 50%-Water Syringe) 12.5 gm PRN Q15MIN PRN IV SEE COMMENTS; Start 04/13/18 at 17:15 Insulin Glargine (Lantus) 10 units 1X ONCE SQ Last administered on 04/13/18at 17 :38; Start 04/13/18 at 17:30; Stop 04/13/18 at 17:31; Status DC Insulin Human Lispro (HumaLOG) 0-7 UNITS TIDWMEALS SQ ; Start 04/14/18 at 08:00; Stop 04/14/18 at 08:00; Status DC Dextrose (Dextrose 50%-Water Syringe) 12.5 gm PRN Q15MIN PRN IV SEE COMMENTS; Start 04/13/18 at 17:15; Status UNV Insulin Human Lispro (HumaLOG) 0-7 UNITS TIDWMEALS SQ Last administered on at 11:53; Start 04/13/18 at 17:30 Oxycodone HCl (Roxicodone) 10 mg PRN Q6HRS PRN PO SEVERE PAIN Last administered on 04/14/18at 08:02; Start 04/13/18 at 23:45 Active Scripts Active Cyclobenzaprine Hcl 5 Mg Tablet 5 Mg PO PRN TID PRN Prednisone 50 Mg Tablet 1 Tab PO DAILY Reglan (Metoclopramide Hcl) 10 Mg Tablet 0.5 Tab PO QID 30 Days Xanax (Alprazolam) 0.5 Mg Tablet 1 Tab PO BID Prednisone 20 Mg Tablet 40 Mg PO DAILY Furosemide 20 Mg Tablet 1 Tab PO DAILY Albuterol Sulfate Neb Soln (Albuterol Sulfate) 2.5 Mg/3 Ml Vial.neb 1 Vial NEB PRN Q4HRS Reported Erythromycin (Erythromycin Base) 250 Mg Tablet 250 Mg PO DAILY Vitamin D3 (Cholecalciferol (Vitamin D3)) 5,000 Unit Tablet 5,000 Unit PO DAILY Potassium Chloride 20 Meq Tablet.er 20 Meq PO DAILY Protonix (Pantoprazole Sodium) 20 Mg Tablet.dr 1 Tab PO DAILY Flonase Allergy Relief (Fluticasone Propionate) 9.9 Ml [place].susp 2 Sprays NS DAILY Atorvastatin Calcium 10 Mg Tablet 10 Mg PO HS Symbicort 160-4.5 Mcg Inhaler (Budesonide/Formoterol Fumarate) 10.2 Gm Hfa.aer.ad 2 Puff IH BID Spiriva (Tiotropium [place]) 18 Mcg Cap.w.dev 2 Inh IH DAILY Vitals/I & O Vital Sign - Last 24 Hours 04/13/18 04/13/18 04/13/18 04/13/18 15:07 15:32 18:57 19:30 Temp 98.3 98.4 98.3 98.4 Pulse 90 72 Resp 18 16 B/P (MAP) 128/71 (90) 130/64 (86) Pulse Ox 96 98 98 O2 Delivery Nasal Cannula Nasal Cannula Nasal Cannula Nasal Cannula O2 Flow Rate 2.0 1.0 2.0 2.0 04/13/18 04/13/18 04/13/18 04/13/18 19:30 19:44 20:59 22:01 Temp 98.4 98.4 Pulse 83 Resp 16 B/P (MAP) 119/77 (91) Pulse Ox 98 98 O2 Delivery Nasal Cannula Nasal Cannula Nasal Cannula Nasal Cannula O2 Flow Rate 2.0 2.0 2.0 2.0 04/13/18 04/14/18 04/14/18 04/14/18 22:11 02:03 02:14 03:15 Temp 97.5 97.5 Pulse 80 Resp 16 B/P (MAP) 138/73 (94) Pulse Ox 98 98 98 98 O2 Delivery Nasal Cannula Nasal Cannula Nasal Cannula O2 Flow Rate 2.0 2.0 2.0 2.0 04/14/18 04/14/18 04/14/18 04/14/18 03:15 07:00 07:34 08:02 Temp 98.4 98.4 Pulse 66 Resp 16 B/P (MAP) 138/84 (102) Pulse Ox 100 97 98 O2 Delivery Nasal Cannula Nasal Cannula Nasal Cannula Nasal Cannula O2 Flow Rate 2.0 2.0 1.0 04/14/18 04/14/18 04/14/18 04/14/18 08:12 09:03 11:00 11:45 Temp 98.7 98.7 Pulse 102 Resp 20 B/P (MAP) 103/65 (78) Pulse Ox 97 98 O2 Delivery Nasal Cannula Nasal Cannula Nasal Cannula Nasal Cannula O2 Flow Rate 2.0 2.0 1.0 Intake and Output 04/13/18 04/13/18 04/14/18 15:00 23:00 07:00 Intake Total 1020 ml 860 ml 1000 ml Output Total 650 ml 400 ml Balance 370 ml 460 ml 1000 ml PATRIA SHIELDS MD Apr 14, 2018 12:18
[2018-04-14] MEDS: traMADol 50 MG TABLET PO PRN (13:35)
[2018-04-14] MEDS: AZITHROMYCIN 500 MG in IV NORMAL SALINE 250ML 250 ML IV SCH (13:40)
--- NOTE | 2018-04-14 14:42 | PDOC ---
PULMONARY PROGRESS NOTES Subjective PT LESS SOA Vitals Vital Signs Date Time Temp Pulse Resp B/P (MAP) Pulse Ox O2 Delivery O2 Flow Rate FiO2 04/14/18 13:35 Nasal Cannula 04/14/18 11:45 98 1.0 04/14/18 11:00 98.7 102 20 103/65 (78) 98.7 ROS: No Nausea, No Chest Pain, No Abdominal Pain, No Increase Cough General: Alert, No acute distress Lungs: Wheezing Cardiovascular: S1, S2 Abdomen: Soft, Non-tender Neuro Exam: Alert Extremities: No Edema, Other Skin: Warm Labs Laboratory Tests Test 04/13/18 04:48 04/13/18 14:49 04/13/18 16:48 04/13/18 21:14 White Blood Count 9.1 x10^3/uL (4.0-11.0) Red Blood Count 3.65 x10^6/uL (4.30-5.70) Hemoglobin 11.2 g/dL (13.0-17.5) Hematocrit 33.0 % (39.0-53.0) Mean Corpuscular Volume 90 fL (79-100) Mean Corpuscular Hemoglobin 31 pg (25-35) Mean Corpuscular Hemoglobin Concent 34 g/dL (31-37) Red Cell Distribution Width 15.7 % (11.5-14.5) Platelet Count 211 x10^3/uL (140-400) Neutrophils (%) (Auto) 94 % (31-73) Lymphocytes (%) (Auto) 2 % (24-48) Monocytes (%) (Auto) 4 % (0-9) Eosinophils (%) (Auto) 0 % (0-3) Basophils (%) (Auto) 0 % (0-3) Neutrophils # (Auto) 8.5 x10^3uL (1.8-7.7) Lymphocytes # (Auto) 0.2 x10^3/uL (1.0-4.8) Monocytes # (Auto) 0.4 x10^3/uL (0.0-1.1) Eosinophils # (Auto) 0.0 x10^3/uL (0.0-0.7) Basophils # (Auto) 0.0 x10^3/uL (0.0-0.2) Sodium Level 142 mmol/L (136-145) Potassium Level 4.3 mmol/L (3.5-5.1) Chloride Level 103 mmol/L (98-107) Carbon Dioxide Level 32 mmol/L (21-32) Anion Gap 7 (6-14) Blood Urea Nitrogen 17 mg/dL (8-26) Creatinine 0.9 mg/dL (0.7-1.3) Estimated GFR (Cockcroft-Gault) 104.9 Glucose Level 173 mg/dL (70-99) Calcium Level 9.0 mg/dL (8.5-10.1) Iron Level 40 ug/dL (65-175) Total Iron Binding Capacity 268 ug/dL (250-450) Iron Saturation 15 % (15-34) Glucose (Fingerstick) 216 mg/dL (70-99) 253 mg/dL (70-99) 121 mg/dL (70-99) Test 04/14/18 07:24 04/14/18 11:43 Glucose (Fingerstick) 187 mg/dL (70-99) 295 mg/dL (70-99) Laboratory Tests Test 04/13/18 14:49 04/13/18 16:48 04/13/18 21:14 04/14/18 07:24 Glucose (Fingerstick) 216 mg/dL (70-99) 253 mg/dL (70-99) 121 mg/dL (70-99) 187 mg/dL (70-99) Test 04/14/18 11:43 Glucose (Fingerstick) 295 mg/dL (70-99) Medications Active Scripts Medications Dose Route/Sig Max Daily Dose Days Date Category Cyclobenzaprine Hcl 5 Mg Tablet 5 Mg PO PRN TID PRN 04/08/18 Rx Prednisone 50 Mg Tablet 1 Tab PO DAILY 03/27/18 Rx Erythromycin (Erythromycin Base) 250 Mg Tablet 250 Mg PO DAILY 03/15/18 Reported Vitamin D3 (Cholecalciferol (Vitamin D3)) 5,000 Unit Tablet 5,000 Unit PO DAILY 03/15/18 Reported Reglan (Metoclopramide Hcl) 10 Mg Tablet 0.5 Tab PO QID 30 02/14/18 Rx Xanax (Alprazolam) 0.5 Mg Tablet 1 Tab PO BID 02/03/18 Rx Prednisone 20 Mg Tablet 40 Mg PO DAILY 01/31/18 Rx Potassium Chloride 20 Meq Tablet.er 20 Meq PO DAILY 01/13/18 Reported Protonix (Pantoprazole Sodium) 20 Mg Tablet.dr 1 Tab PO DAILY 11/18/17 Reported Flonase Allergy Relief (Fluticasone Propionate) 9.9 Ml [place].susp 2 Sprays NS DAILY 11/18/17 Reported Furosemide 20 Mg Tablet 1 Tab PO DAILY 09/10/17 Rx Atorvastatin Calcium 10 Mg Tablet 10 Mg PO HS 08/21/17 Reported Albuterol Sulfate Neb Soln (Albuterol Sulfate) 2.5 Mg/3 Ml Vial.neb 1 Vial NEB PRN Q4HRS 07/10/17 Rx Symbicort 160-4.5 Mcg Inhaler (Budesonide/Formoterol Fumarate) 10.2 Gm Hfa.aer.ad 2 Puff IH BID 09/21/15 Reported Spiriva (Tiotropium [place]) 18 Mcg Cap.w.dev 2 Inh IH DAILY 09/21/15 Reported Impression . IMPRESSION: 1. Acute on chronic respiratory failure. 2. Acute exacerbation of chronic obstructive pulmonary disease. 3. End-stage bullous emphysema. The patient is scheduled to undergo bullectomy at [facility]. Plan . CONTINUE THE SAME POSSIBLE D/C IN AM 1. Continue current support. 2. The patient instructed on continuing oxygen supplementation, nebulized treatments, steroids. SCOTT COOK MD Apr 14, 2018 14:42
[2018-04-14 15:00] VITALS: BP 129/78
[2018-04-14 19:00] VITALS: BP 143/77
[2018-04-14] MEDS: ATORVASTATIN CALCIUM 10 MG TABLET. PO SCH (21:20)
[2018-04-14 22:42] VITALS: BP 160/96
[2018-04-15 02:52] VITALS: BP 137/89
[2018-04-15] MEDS: METOCLOPRAMIDE 5 MG TABLET. PO SCH ×4 (06:37→21:26)
[2018-04-15] MEDS: methylPREDNISolone SOD SUCC PF 125 MG/2 ML VIAL. IV SCH ×3 (06:38→21:28)
[2018-04-15] MEDS: traMADol 50 MG TABLET PO PRN (06:40)
[2018-04-15 07:00] VITALS: BP 143/83
[2018-04-15] MEDS: IPRATRPIUM/ALBUTEROL 0.5/2.5MG 3 ML NEBU. NEB SCH ×4 (07:09→20:46)
[2018-04-15] MEDS: BUDESONIDE 0.5 MG/2 ML NEBU. NEB SCH ×2 (07:11→20:46)
--- NOTE | 2018-04-15 08:21 | PDOC ---
PROGRESS NOTES Chief Complaint Chief Complaint Acute on chronic combined respiratory failue COPD with exacerbation and acute bronchitis, Dysphagia with prior history of Rosanne esophagitis. htn CHF chronic combined, EF 50% GERD anemia hypokalmia History of Present Illness History of Present Illness Admitted with COPD exacerbation with precipitous drop in temperature. Seen by pulmonology. cont steroids, nebs and support on abx A/P: cont current started antitussives x2 For his End-stage bullous emphysema the patient is scheduled to undergo bullectomy at [facility]. Ok for d/c likely tomorrow, he is not near his baseline yet. Vitals Vitals Vital Signs Date Time Temp Pulse Resp B/P (MAP) Pulse Ox O2 Delivery O2 Flow Rate FiO2 04/15/18 07:11 97 Nasal Cannula 2.0 04/15/18 06:40 18 04/15/18 02:52 98.3 86 137/89 (105) 98.3 Physical Exam General: Alert, Oriented X3, Cooperative, No acute distress Heart: Regular rate (SR/ST), Normal S1, Normal S2 Lungs: Wheezing Abdomen: Soft, No tenderness Extremities: No edema, Normal pulses Skin: No breakdown, No significant lesion Labs LABS Laboratory Tests Test 04/14/18 11:43 04/14/18 16:45 04/14/18 20:08 04/15/18 07:45 Glucose (Fingerstick) 295 mg/dL (70-99) 167 mg/dL (70-99) 269 mg/dL (70-99) 184 mg/dL (70-99) Assessment and Plan Assessmemt and Plan Problems Medical Problems: (1) COPD with exacerbation Status: Acute Comment Review of Relevant I have reviewed the following items franki (where applicable) has been applied. Labs Laboratory Tests Test 04/13/18 14:49 04/13/18 16:48 04/13/18 21:14 04/14/18 07:24 Glucose (Fingerstick) 216 mg/dL (70-99) 253 mg/dL (70-99) 121 mg/dL (70-99) 187 mg/dL (70-99) Test 04/14/18 11:43 04/14/18 16:45 04/14/18 20:08 04/15/18 07:45 Glucose (Fingerstick) 295 mg/dL (70-99) 167 mg/dL (70-99) 269 mg/dL (70-99) 184 mg/dL (70-99) Laboratory Tests Test 04/14/18 11:43 04/14/18 16:45 04/14/18 20:08 04/15/18 07:45 Glucose (Fingerstick) 295 mg/dL (70-99) 167 mg/dL (70-99) 269 mg/dL (70-99) 184 mg/dL (70-99) Medications Current Medications Albuterol Sulfate (Ventolin Neb Soln) 5 mg 1X ONCE NEB Last administered on at 23:34; Start 04/11/18 at 23:30; Stop 04/11/18 at 23:31; Status DC Ipratropium [place] (Atrovent) 0.5 mg 1X ONCE NEB Last administered on at 23:34; Start 04/11/18 at 23:30; Stop 04/11/18 at 23:31; Status DC Methylprednisolone Sodium Succinate (SOLU-Medrol 125MG VIAL) 125 mg 1X ONCE IV Last administered on 04/12/18at 02:03; Start 04/11/18 at 23:30; Stop 04/11/18 at 23:31; Status DC Morphine Sulfate (Morphine Sulfate) 2 mg PRN Q15MIN PRN IV/SQ PAIN GREATER THAN 3/10; Start 04/11/18 at 23:00; Stop 04/12/18 at 22:59; Status DC Ondansetron HCl (Zofran) 4 mg PRN Q8HRS PRN IV NAUSEA/VOMITING 1ST CHOICE; Start 04/12/18 at 01:15; Stop 04/13/18 at 01:14; Status DC Morphine Sulfate (Morphine Sulfate) 2 mg PRN Q2HR PRN IV SEVERE PAIN Last administered on 04/12/18at 17:05; Start 04/12/18 at 01:15; Stop 04/13/18 at 01:14; Status DC Albuterol/ Ipratropium (Duoneb) 3 ml RTQID NEB Last administered on 04/12/18at 11 :50; Start 04/12/18 at 08:00; Stop 04/12/18 at 12:41; Status DC Ceftriaxone Sodium (Rocephin) 1 gm 1X ONCE IVP Last administered on 04/12/18at 02:05; Start 04/12/18 at 01:30; Stop 04/12/18 at 01:31; Status DC Pharmacy Consult (C.diff Med Screen By Rx) 1 each 1X ONCE [facility] ; Start 04/12/18 at 03:15; Stop 04/12/18 at 03:16; Status DC Pantoprazole Sodium (Protonix) 40 mg 1X ONCE PO Last administered on 04/12/18at 10:35; Start 04/12/18 at 10:30; Stop 04/12/18 at 10:31; Status DC Pantoprazole Sodium (Protonix) 40 mg DAILYAC PO ; Start 04/13/18 at 07:30; Stop 04/13/18 at 07:30; Status DC Albuterol Sulfate (Ventolin Neb Soln) 2.5 mg PRN Q4HRS PRN NEB SHORTNESS OF BREATH Last administered on 04/14/18at 03:14; Start 04/12/18 at 12:30 Alprazolam (Xanax) 0.5 mg BID PO Last administered on 04/14/18at 21:20; Start 04/12/18 at 13:00 Atorvastatin Calcium (Lipitor) 10 mg HS PO Last administered on 04/14/18 21:20 ; Start 04/12/18 at 21:00 Erythromycin (E-Mycin) 250 mg DAILY PO ; Start 04/12/18 at 13:00; Stop 04/12/18 at 13:00; Status DC Furosemide (Lasix) 20 mg DAILY PO Last administered on 04/14/18at 08:02; Start at 13:00 Metoclopramide HCl (Reglan) 5 mg QIDACHS PO Last administered on 04/15/18at 06:37 ; Start 04/12/18 at 13:00 Non-Formulary Medication (Budesonide/ Formoterol Fumarate (Symbicort 160-4.5 Mcg Inhaler)) 2 puff BID IH ; Start 04/12/18 at 21:00; Status UNV Vitamin D (Vitamin D3) 5,000 unit DAILY PO Last administered on 04/14/18at 08:01 ; Start 04/12/18 at 13:00 Cyclobenzaprine HCl (Flexeril) 5 mg PRN TID PRN PO MUSCLE SPASMS Last administered on 04/14/18 21:20; Start 04/12/18 at 12:45 Fluticasone Propionate (Flonase) 2 spray DAILY NS Last administered on at 08:01; Start 04/12/18 at 13:00 Non-Formulary Medication (Pantoprazole Sodium (Protonix)) 1 tab DAILY PO ; Start 04/13/18 at 09:00; Status UNV Potassium Chloride (Klor-Con) 20 meq DAILYWBKFT PO ; Start 04/12/18 at 13:00; Status Cancel Non-Formulary Medication (Tiotropium [place] (Spiriva)) 2 inh DAILY IH ; Start 04/13/18 at 09:00; Status UNV Potassium Chloride (Klor-Con) 40 meq 1X ONCE PO Last administered on 04/12/18at 13:00; Start 04/12/18 at 13:00; Stop 04/12/18 at 13:01; Status DC Potassium Chloride (Klor-Con) 20 meq DAILYWBKFT PO ; Start 04/13/18 at 08:00; Stop 04/13/18 at 08:00; Status DC Azithromycin 500 mg/Sodium Chloride 250 ml @ 250 mls/hr Q24H IV Last administered on 04/14/18at 13:40; Start 04/12/18 at 13:00 Methylprednisolone Sodium Succinate (SOLU-Medrol 125MG VIAL) 100 mg Q8HRS IV Last administered on 04/15/18at 06:38; Start 04/12/18 at 14:00 Pantoprazole Sodium (Protonix) 40 mg DAILYAC PO ; Start 04/13/18 at 07:30; Status UNV Piperacillin Sod/ Tazobactam Sod 3.375 gm/Sodium Chloride 50 ml @ 100 mls/hr Q6HRS IV Last administered on 04/12/18at 13:50; Start 04/12/18 at 13:00; Stop 04/12 at 16:51; Status DC Budesonide (Pulmicort) 0.5 mg RTBID NEB Last administered on 04/15/18at 07:11; Start 04/12/18 at 13:00 Albuterol/ Ipratropium (Duoneb) 3 ml RTQID NEB Last administered on 04/15/18at 07 :09; Start 04/12/18 at 16:00 Clotrimazole (Mycelex) 10 mg 5XDAY MM ; Start 04/12/18 at 14:00; Stop 04/13/18 at 13:47; Status DC Potassium Chloride (Klor-Con) 40 meq 1X ONCE PO Last administered on 04/12/18at 17:00; Start 04/12/18 at 16:45; Stop 04/12/18 at 16:46; Status DC Potassium Chloride (Klor-Con) 20 meq DAILYWBKFT PO Last administered on at 08:01; Start 04/13/18 at 08:00 Lactobacillus Rhamnosus (Culturelle) 1 cap BID PO Last administered on 21:18; Start 04/12/18 at 21:00 Famotidine (Pepcid) 20 mg BID PO Last administered on 04/14/18at 21:20; Start 04/12/18 at 21:00 Tramadol HCl (Ultram) 50 mg PRN Q6HRS PRN PO MODERATE PAIN Last administered on 04/15/18at 06:40; Start 04/12/18 at 21:45 Guaifenesin (Robitussin Dm) 10 ml PRN Q6HRS PRN PO COUGH Last administered on at 11:47; Start 04/13/18 at 11:45 Benzonatate (Tessalon [place]) 100 mg [id number] PO Last administered on 04/14/18at 21: 20; Start 04/13/18 at 12:00 Insulin Human Lispro (HumaLOG) 0-9 UNITS TIDWMEALS SQ ; Start 04/14/18 at 08:00; Stop 04/14/18 at 08:00; Status DC Dextrose (Dextrose 50%-Water Syringe) 12.5 gm PRN Q15MIN PRN IV SEE COMMENTS; Start 04/13/18 at 17:15 Insulin Glargine (Lantus) 10 units 1X ONCE SQ Last administered on 04/13/18at 17 :38; Start 04/13/18 at 17:30; Stop 04/13/18 at 17:31; Status DC Insulin Human Lispro (HumaLOG) 0-7 UNITS TIDWMEALS SQ ; Start 04/14/18 at 08:00; Stop 04/14/18 at 08:00; Status DC Dextrose (Dextrose 50%-Water Syringe) 12.5 gm PRN Q15MIN PRN IV SEE COMMENTS; Start 04/13/18 at 17:15; Status UNV Insulin Human Lispro (HumaLOG) 0-7 UNITS TIDWMEALS SQ Last administered on at 16:59; Start 04/13/18 at 17:30 Oxycodone HCl (Roxicodone) 10 mg PRN Q6HRS PRN PO SEVERE PAIN Last administered on 04/14/18at 21:19; Start 04/13/18 at 23:45 Active Scripts Active Cyclobenzaprine Hcl 5 Mg Tablet 5 Mg PO PRN TID PRN Prednisone 50 Mg Tablet 1 Tab PO DAILY Reglan (Metoclopramide Hcl) 10 Mg Tablet 0.5 Tab PO QID 30 Days Xanax (Alprazolam) 0.5 Mg Tablet 1 Tab PO BID Prednisone 20 Mg Tablet 40 Mg PO DAILY Furosemide 20 Mg Tablet 1 Tab PO DAILY Albuterol Sulfate Neb Soln (Albuterol Sulfate) 2.5 Mg/3 Ml Vial.neb 1 Vial NEB PRN Q4HRS Reported Erythromycin (Erythromycin Base) 250 Mg Tablet 250 Mg PO DAILY Vitamin D3 (Cholecalciferol (Vitamin D3)) 5,000 Unit Tablet 5,000 Unit PO DAILY Potassium Chloride 20 Meq Tablet.er 20 Meq PO DAILY Protonix (Pantoprazole Sodium) 20 Mg Tablet.dr 1 Tab PO DAILY Flonase Allergy Relief (Fluticasone Propionate) 9.9 Ml [place].susp 2 Sprays NS DAILY Atorvastatin Calcium 10 Mg Tablet 10 Mg PO HS Symbicort 160-4.5 Mcg Inhaler (Budesonide/Formoterol Fumarate) 10.2 Gm Hfa.aer.ad 2 Puff IH BID Spiriva (Tiotropium [place]) 18 Mcg Cap.w.dev 2 Inh IH DAILY Vitals/I & O Vital Sign - Last 24 Hours 04/14/18 04/14/18 04/14/18 04/14/18 11:00 11:45 13:35 14:35 Temp 98.7 98.7 Pulse 102 Resp 20 B/P (MAP) 103/65 (78) Pulse Ox 97 98 O2 Delivery Nasal Cannula Nasal Cannula Nasal Cannula Nasal Cannula O2 Flow Rate 2.0 1.0 04/14/18 04/14/18 04/14/18 04/14/18 15:00 16:17 17:09 19:00 Temp 98.6 98.1 98.6 98.1 Pulse 52 77 Resp B/P (MAP) 129/78 (95) 143/77 (99) Pulse Ox 100 96 O2 Delivery Nasal Cannula Nasal Cannula Nasal Cannula Nasal Cannula O2 Flow Rate 2.0 1.0 2.0 04/14/18 04/14/18 04/14/18 04/14/18 19:31 19:40 19:41 21:19 Resp 18 Pulse Ox 98 98 98 O2 Delivery Nasal Cannula Nasal Cannula Nasal Cannula Nasal Cannula O2 Flow Rate 2.0 2.0 2.0 2.0 04/14/18 04/14/18 04/15/18 04/15/18 22:19 22:42 02:52 06:40 Temp 98.2 98.3 98.2 98.3 Pulse 69 86 Resp 18 16 B/P (MAP) 160/96 (117) 137/89 (105) Pulse Ox 98 99 99 99 O2 Delivery Nasal Cannula Nasal Cannula Nasal Cannula Nasal Cannula O2 Flow Rate 2.0 2.0 2.0 2.0 04/15/18 07:11 Pulse Ox 97 O2 Delivery Nasal Cannula O2 Flow Rate 2.0 Intake and Output 04/14/18 04/14/18 04/15/18 14:59 22:59 06:59 Intake Total 1050 ml 500 ml 120 ml Output Total 1100 ml 350 ml Balance 1050 ml -600 ml -230 ml KIRSTIE TREVINO MD Apr 15, 2018 08:21
[2018-04-15] MEDS: ALPRAZolam 0.5 MG TABLET PO SCH ×2 (08:36→21:27)
[2018-04-15] MEDS: POTASSIUM CHLORIDE 20 MEQ TABLET.ER. PO SCH (08:36)
[2018-04-15] MEDS: guaiFENesin DM 200MG/20MG 10 ML SYRUP PO PRN (08:36)
[2018-04-15] MEDS: FAMOTIDINE 20 MG TABLET. PO SCH ×2 (08:36→21:27)
[2018-04-15] MEDS: CHOLECALCIFEROL (VITAMIN D3) 5,000 UNIT CAPSULE PO SCH (08:36)
[2018-04-15] MEDS: FUROSEMIDE 20 MG TABLET PO SCH (08:36)
[2018-04-15] MEDS: BENZONATATE 100 MG CAPSULE. PO SCH ×3 (08:36→21:26)
[2018-04-15] MEDS: LACTOBACILLUS RHAMNOSUS GG 1 CAPSULE. PO SCH ×2 (08:36→21:26)
[2018-04-15] MEDS: FLUTICASONE 50MCG/NASAL SPRAY 16GM BOTTLE. NS SCH (08:37)
[2018-04-15] MEDS: oxyCODONE IR 5 MG TABLET PO PRN ×3 (08:37→21:26)
[2018-04-15] MEDS: INSULIN LISPRO 300 UNITS/3 ML INSULN.PEN. SQ SCH ×3 (08:52→17:51)
--- NOTE | 2018-04-15 09:48 | PDOC ---
Subjective: Subjective: Thinks breathing better but still "coughing up some green stuff." Tolerating PO, denies swallowing or other GI complaints. Objective: Vital Signs: Vital Signs Date Time Temp Pulse Resp B/P (MAP) Pulse Ox O2 Delivery O2 Flow Rate FiO2 04/15/18 08:37 20 97 Nasal Cannula 2.0 04/15/18 07:00 98.1 89 143/83 (103) 98.1 Labs: Laboratory Tests Test 04/14/18 11:43 04/14/18 16:45 04/14/18 20:08 04/15/18 07:45 Glucose (Fingerstick) 295 mg/dL 167 mg/dL 269 mg/dL 184 mg/dL PE: GEN: NAD, up to chair eating breakfast LUNGS: NC HEART: RRR ABD: S/ND/NT NEURO/PSYCH: A & O 3, maybe a little depressed A/P: COPD/emphysema Anemia - stable Anxiety H/o abnormal swallowing - past workup per GI consult note 04/12/18 -- Currently without GI complaints. Has been continued on Reglan - ?need for this. Note was changed from PPI to H2 kwasi - not sure why. DC per primary/pulm - note plans for follow-up @ [facility] for bullectomy. ROBBIE ESCAMILLA Apr 15, 2018 09:48
--- NOTE | 2018-04-15 09:58 | PDOC ---
PULMONARY PROGRESS NOTES Subjective PT LESS SOA Vitals Vital Signs Date Time Temp Pulse Resp B/P (MAP) Pulse Ox O2 Delivery O2 Flow Rate FiO2 04/15/18 08:37 20 97 Nasal Cannula 2.0 04/15/18 07:00 98.1 89 143/83 (103) 98.1 ROS: No Nausea, No Chest Pain, No Abdominal Pain, No Increase Cough General: Alert, No acute distress Lungs: Wheezing Cardiovascular: S1, S2 Abdomen: Soft, Non-tender Neuro Exam: Alert Extremities: No Edema, Other Skin: Warm Labs Laboratory Tests Test 04/13/18 14:49 04/13/18 16:48 04/13/18 21:14 04/14/18 07:24 Glucose (Fingerstick) 216 mg/dL (70-99) 253 mg/dL (70-99) 121 mg/dL (70-99) 187 mg/dL (70-99) Test 04/14/18 11:43 04/14/18 16:45 04/14/18 20:08 04/15/18 07:45 Glucose (Fingerstick) 295 mg/dL (70-99) 167 mg/dL (70-99) 269 mg/dL (70-99) 184 mg/dL (70-99) Laboratory Tests Test 04/14/18 11:43 04/14/18 16:45 04/14/18 20:08 04/15/18 07:45 Glucose (Fingerstick) 295 mg/dL (70-99) 167 mg/dL (70-99) 269 mg/dL (70-99) 184 mg/dL (70-99) Medications Active Scripts Medications Dose Route/Sig Max Daily Dose Days Date Category Cyclobenzaprine Hcl 5 Mg Tablet 5 Mg PO PRN TID PRN 04/08/18 Rx Prednisone 50 Mg Tablet 1 Tab PO DAILY 03/27/18 Rx Erythromycin (Erythromycin Base) 250 Mg Tablet 250 Mg PO DAILY 03/15/18 Reported Vitamin D3 (Cholecalciferol (Vitamin D3)) 5,000 Unit Tablet 5,000 Unit PO DAILY 03/15/18 Reported Reglan (Metoclopramide Hcl) 10 Mg Tablet 0.5 Tab PO QID 30 02/14/18 Rx Xanax (Alprazolam) 0.5 Mg Tablet 1 Tab PO BID 02/03/18 Rx Prednisone 20 Mg Tablet 40 Mg PO DAILY 01/31/18 Rx Potassium Chloride 20 Meq Tablet.er 20 Meq PO DAILY 01/13/18 Reported Protonix (Pantoprazole Sodium) 20 Mg Tablet.dr 1 Tab PO DAILY 11/18/17 Reported Flonase Allergy Relief (Fluticasone Propionate) 9.9 Ml [place].susp 2 Sprays NS DAILY 11/18/17 Reported Furosemide 20 Mg Tablet 1 Tab PO DAILY 09/10/17 Rx Atorvastatin Calcium 10 Mg Tablet 10 Mg PO HS 08/21/17 Reported Albuterol Sulfate Neb Soln (Albuterol Sulfate) 2.5 Mg/3 Ml Vial.neb 1 Vial NEB PRN Q4HRS 07/10/17 Rx Symbicort 160-4.5 Mcg Inhaler (Budesonide/Formoterol Fumarate) 10.2 Gm Hfa.aer.ad 2 Puff IH BID 09/21/15 Reported Spiriva (Tiotropium [place]) 18 Mcg Cap.w.dev 2 Inh IH DAILY 09/21/15 Reported Impression . IMPRESSION: 1. Acute on chronic respiratory failure. 2. Acute exacerbation of chronic obstructive pulmonary disease. 3. End-stage bullous emphysema. The patient is scheduled to undergo bullectomy at [facility]. Plan . STILL SOA NOT SAFE TO D/C WILL REEVALUATE IN [place] SIMMS MD Apr 15, 2018 09:58
[2018-04-15 11:00] VITALS: BP 137/79
[2018-04-15] MEDS: AZITHROMYCIN 500 MG in IV NORMAL SALINE 250ML 250 ML IV SCH (13:50)
[2018-04-15 15:00] VITALS: BP 146/90
[2018-04-15] MEDS ORDERED: DEXTROSE 50% 25 GM / 50ML DISP.SYRIN. IV PRN (15:15)
[2018-04-15 19:00] VITALS: BP 122/74
[2018-04-15] MEDS: ATORVASTATIN CALCIUM 10 MG TABLET. PO SCH (21:27)
[2018-04-15] MEDS: INSULIN GLARGINE 300 UNITS/3 ML INSULN.PEN. SQ SCH (21:41)
[2018-04-15 23:00] VITALS: BP 135/70
[2018-04-16] MEDS: CYCLOBENZAPRINE 10 MG TABLET. PO PRN ×3 (01:31→19:37)
[2018-04-16] MEDS: guaiFENesin DM 200MG/20MG 10 ML SYRUP PO PRN (01:35)
[2018-04-16 03:00] VITALS: BP 139/83
[2018-04-16] MEDS: oxyCODONE IR 5 MG TABLET PO PRN ×3 (03:28→19:38)
[2018-04-16] MEDS: methylPREDNISolone SOD SUCC PF 125 MG/2 ML VIAL. IV SCH ×3 (06:06→21:44)
[2018-04-16 07:00] VITALS: BP 158/95
[2018-04-16] MEDS: IPRATRPIUM/ALBUTEROL 0.5/2.5MG 3 ML NEBU. NEB SCH ×4 (07:32→19:31)
[2018-04-16] MEDS: BUDESONIDE 0.5 MG/2 ML NEBU. NEB SCH ×2 (07:32→19:31)
[2018-04-16] MEDS: METOCLOPRAMIDE 5 MG TABLET. PO SCH ×4 (07:57→21:46)
[2018-04-16] MEDS: BENZONATATE 100 MG CAPSULE. PO SCH ×3 (07:58→21:45)
[2018-04-16] MEDS: FAMOTIDINE 20 MG TABLET. PO SCH ×2 (07:58→21:45)
[2018-04-16] MEDS: CHOLECALCIFEROL (VITAMIN D3) 5,000 UNIT CAPSULE PO SCH (07:58)
[2018-04-16] MEDS: LACTOBACILLUS RHAMNOSUS GG 1 CAPSULE. PO SCH ×2 (07:58→21:45)
[2018-04-16] MEDS: ALPRAZolam 0.5 MG TABLET PO SCH ×2 (07:59→21:45)
[2018-04-16] MEDS: POTASSIUM CHLORIDE 20 MEQ TABLET.ER. PO SCH (07:59)
[2018-04-16] MEDS: FUROSEMIDE 20 MG TABLET PO SCH (07:59)
[2018-04-16] MEDS: INSULIN LISPRO 300 UNITS/3 ML INSULN.PEN. SQ SCH ×3 (08:00→18:11)
[2018-04-16] MEDS: traMADol 50 MG TABLET PO PRN (08:00)
[2018-04-16] MEDS: FLUTICASONE 50MCG/NASAL SPRAY 16GM BOTTLE. NS SCH (08:01)
--- NOTE | 2018-04-16 09:17 | PDOC ---
PULMONARY PROGRESS NOTES Subjective PT LESS SOA Vitals Vital Signs Date Time Temp Pulse Resp B/P (MAP) Pulse Ox O2 Delivery O2 Flow Rate FiO2 04/16/18 08:00 20 97 Nasal Cannula 04/16/18 07:34 2.0 04/16/18 03:00 98.4 72 139/83 (101) 98.4 ROS: No Nausea, No Chest Pain, No Abdominal Pain, No Increase Cough General: Alert, No acute distress Lungs: Wheezing Cardiovascular: S1, S2 Abdomen: Soft, Non-tender Neuro Exam: Alert Extremities: No Edema, Other Skin: Warm Labs Laboratory Tests Test 04/14/18 11:43 04/14/18 16:45 04/14/18 20:08 04/15/18 07:45 Glucose (Fingerstick) 295 mg/dL (70-99) 167 mg/dL (70-99) 269 mg/dL (70-99) 184 mg/dL (70-99) Test 04/15/18 11:33 04/15/18 16:38 04/15/18 21:21 04/16/18 08:06 Glucose (Fingerstick) 241 mg/dL (70-99) 231 mg/dL (70-99) 273 mg/dL (70-99) 205 mg/dL (70-99) Laboratory Tests Test 04/15/18 11:33 04/15/18 16:38 04/15/18 21:21 04/16/18 08:06 Glucose (Fingerstick) 241 mg/dL (70-99) 231 mg/dL (70-99) 273 mg/dL (70-99) 205 mg/dL (70-99) Medications Active Scripts Medications Dose Route/Sig Max Daily Dose Days Date Category Cyclobenzaprine Hcl 5 Mg Tablet 5 Mg PO PRN TID PRN 04/08/18 Rx Prednisone 50 Mg Tablet 1 Tab PO DAILY 03/27/18 Rx Erythromycin (Erythromycin Base) 250 Mg Tablet 250 Mg PO DAILY 03/15/18 Reported Vitamin D3 (Cholecalciferol (Vitamin D3)) 5,000 Unit Tablet 5,000 Unit PO DAILY 03/15/18 Reported Reglan (Metoclopramide Hcl) 10 Mg Tablet 0.5 Tab PO QID 30 02/14/18 Rx Xanax (Alprazolam) 0.5 Mg Tablet 1 Tab PO BID 02/03/18 Rx Prednisone 20 Mg Tablet 40 Mg PO DAILY 01/31/18 Rx Potassium Chloride 20 Meq Tablet.er 20 Meq PO DAILY 01/13/18 Reported Protonix (Pantoprazole Sodium) 20 Mg Tablet.dr 1 Tab PO DAILY 11/18/17 Reported Flonase Allergy Relief (Fluticasone Propionate) 9.9 Ml [place].susp 2 Sprays NS DAILY 11/18/17 Reported Furosemide 20 Mg Tablet 1 Tab PO DAILY 09/10/17 Rx Atorvastatin Calcium 10 Mg Tablet 10 Mg PO HS 08/21/17 Reported Albuterol Sulfate Neb Soln (Albuterol Sulfate) 2.5 Mg/3 Ml Vial.neb 1 Vial NEB PRN Q4HRS 07/10/17 Rx Symbicort 160-4.5 Mcg Inhaler (Budesonide/Formoterol Fumarate) 10.2 Gm Hfa.aer.ad 2 Puff IH BID 09/21/15 Reported Spiriva (Tiotropium [place]) 18 Mcg Cap.w.dev 2 Inh IH DAILY 09/21/15 Reported Impression . IMPRESSION: 1. Acute on chronic respiratory failure. 2. Acute exacerbation of chronic obstructive pulmonary disease. 3. End-stage bullous emphysema. The patient is scheduled to undergo bullectomy at [facility]. 4. BACK PAIN Plan . FILM ON [facility] IN [place] SIMMS MD Apr 16, 2018 09:17
[2018-04-16 11:00] VITALS: BP 151/90
--- NOTE | 2018-04-16 13:04 | PDOC ---
Subjective: Subjective: No swallowing issues. Objective: Vital Signs: Vital Signs Date Time Temp Pulse Resp B/P (MAP) Pulse Ox O2 Delivery O2 Flow Rate FiO2 04/16/18 12:53 20 98 Nasal Cannula 2.0 04/16/18 11:00 97.3 88 151/90 (110) 97.3 Labs: Laboratory Tests Test 04/15/18 16:38 04/15/18 21:21 04/16/18 08:06 04/16/18 11:34 Glucose (Fingerstick) 231 mg/dL 273 mg/dL 205 mg/dL 253 mg/dL PE: GEN: in recliner, NAD LUNGS: NC NEURO/PSYCH: was asleep, doesn't talk much today A/P: COPD/emphysema H/o abnormal swallowing - past workup per GI consult note 04/12/18, currently asymptomatic -- Stable from our standpoint. ROBBIE ESCAMILLA Apr 16, 2018 13:04
[2018-04-16] MEDS: AZITHROMYCIN 500 MG in IV NORMAL SALINE 250ML 250 ML IV SCH (13:31)
[2018-04-16 15:00] VITALS: BP 126/56
--- NOTE | 2018-04-16 16:10 | PDOC ---
PROGRESS NOTES Chief Complaint Chief Complaint Acute on chronic combined respiratory failue COPD with exacerbation and acute bronchitis, Severe emphysematous disease, he is considered for bullectomy in the near future at tertiary center. Dysphagia with prior history of Rosanne esophagitis. htn CHF chronic combined, EF 50% GERD anemia hypokalemia replaced History of Present Illness History of Present Illness For his End-stage bullous emphysema the patient is scheduled to undergo bullectomy at [facility]. No new complaints no fever or acute events reported overnight currently medically optimized and stable Vitals Vitals Vital Signs Date Time Temp Pulse Resp B/P (MAP) Pulse Ox O2 Delivery O2 Flow Rate FiO2 04/16/18 15:33 98 Nasal Cannula 2.0 04/16/18 12:53 20 04/16/18 11:00 97.3 88 151/90 (110) 97.3 Physical Exam General: Alert, Oriented X3, Cooperative, No acute distress Heart: Regular rate (SR/ST), Normal S1, Normal S2 Lungs: Wheezing Abdomen: Soft, No tenderness Extremities: No edema, Normal pulses Skin: No breakdown, No significant lesion Labs LABS Laboratory Tests Test 04/15/18 16:38 04/15/18 21:21 04/16/18 08:06 04/16/18 11:34 Glucose (Fingerstick) 231 mg/dL (70-99) 273 mg/dL (70-99) 205 mg/dL (70-99) 253 mg/dL (70-99) Review of Systems Review of Systems no new complaints, only pertinent as per hpi otherwise 10 point review is negative Assessment and Plan Assessmemt and Plan Problems Medical Problems: (1) COPD with exacerbation Status: Acute Comment Review of Relevant I have reviewed the following items franki (where applicable) has been applied. Labs Laboratory Tests Test 04/14/18 16:45 04/14/18 20:08 04/15/18 07:45 04/15/18 11:33 Glucose (Fingerstick) 167 mg/dL (70-99) 269 mg/dL (70-99) 184 mg/dL (70-99) 241 mg/dL (70-99) Test 04/15/18 16:38 04/15/18 21:21 04/16/18 08:06 04/16/18 11:34 Glucose (Fingerstick) 231 mg/dL (70-99) 273 mg/dL (70-99) 205 mg/dL (70-99) 253 mg/dL (70-99) Laboratory Tests Test 04/15/18 16:38 04/15/18 21:21 04/16/18 08:06 04/16/18 11:34 Glucose (Fingerstick) 231 mg/dL (70-99) 273 mg/dL (70-99) 205 mg/dL (70-99) 253 mg/dL (70-99) Medications Current Medications Albuterol Sulfate (Ventolin Neb Soln) 5 mg 1X ONCE NEB Last administered on at 23:34; Start 04/11/18 at 23:30; Stop 04/11/18 at 23:31; Status DC Ipratropium [place] (Atrovent) 0.5 mg 1X ONCE NEB Last administered on at 23:34; Start 04/11/18 at 23:30; Stop 04/11/18 at 23:31; Status DC Methylprednisolone Sodium Succinate (SOLU-Medrol 125MG VIAL) 125 mg 1X ONCE IV Last administered on 04/12/18at 02:03; Start 04/11/18 at 23:30; Stop 04/11/18 at 23:31; Status DC Morphine Sulfate (Morphine Sulfate) 2 mg PRN Q15MIN PRN IV/SQ PAIN GREATER THAN 3/10; Start 04/11/18 at 23:00; Stop 04/12/18 at 22:59; Status DC Ondansetron HCl (Zofran) 4 mg PRN Q8HRS PRN IV NAUSEA/VOMITING 1ST CHOICE; Start 04/12/18 at 01:15; Stop 04/13/18 at 01:14; Status DC Morphine Sulfate (Morphine Sulfate) 2 mg PRN Q2HR PRN IV SEVERE PAIN Last administered on 04/12/18at 17:05; Start 04/12/18 at 01:15; Stop 04/13/18 at 01:14; Status DC Albuterol/ Ipratropium (Duoneb) 3 ml RTQID NEB Last administered on 04/12/18at 11 :50; Start 04/12/18 at 08:00; Stop 04/12/18 at 12:41; Status DC Ceftriaxone Sodium (Rocephin) 1 gm 1X ONCE IVP Last administered on 04/12/18at 02:05; Start 04/12/18 at 01:30; Stop 04/12/18 at 01:31; Status DC Pharmacy Consult (C.diff Med Screen By Rx) 1 each 1X ONCE [facility] ; Start 04/12/18 at 03:15; Stop 04/12/18 at 03:16; Status DC Pantoprazole Sodium (Protonix) 40 mg 1X ONCE PO Last administered on 04/12/18at 10:35; Start 04/12/18 at 10:30; Stop 04/12/18 at 10:31; Status DC Pantoprazole Sodium (Protonix) 40 mg DAILYAC PO ; Start 04/13/18 at 07:30; Stop 04/13/18 at 07:30; Status DC Albuterol Sulfate (Ventolin Neb Soln) 2.5 mg PRN Q4HRS PRN NEB SHORTNESS OF BREATH Last administered on 04/14/18 03:14; Start 04/12/18 at 12:30 Alprazolam (Xanax) 0.5 mg BID PO Last administered on 04/16/18 07:59; Start 04/12/18 at 13:00 Atorvastatin Calcium (Lipitor) 10 mg HS PO Last administered on 04/15/18 21:27 ; Start 04/12/18 at 21:00 Erythromycin (E-Mycin) 250 mg DAILY PO ; Start 04/12/18 at 13:00; Stop 04/12/18 at 13:00; Status DC Furosemide (Lasix) 20 mg DAILY PO Last administered on 04/16/18 07:59; Start at 13:00 Metoclopramide HCl (Reglan) 5 mg QIDACHS PO Last administered on 04/16/18 12:51 ; Start 04/12/18 at 13:00 Non-Formulary Medication (Budesonide/ Formoterol Fumarate (Symbicort 160-4.5 Mcg Inhaler)) 2 puff BID IH ; Start 04/12/18 at 21:00; Status UNV Vitamin D (Vitamin D3) 5,000 unit DAILY PO Last administered on 04/16/18 07:58 ; Start 04/12/18 at 13:00 Cyclobenzaprine HCl (Flexeril) 5 mg PRN TID PRN PO MUSCLE SPASMS Last administered on 3/5/19at 07:58; Start 04/12/18 at 12:45 Fluticasone Propionate (Flonase) 2 spray DAILY NS Last administered on 08:01; Start 04/12/18 at 13:00 Non-Formulary Medication (Pantoprazole Sodium (Protonix)) 1 tab DAILY PO ; Start 04/13/18 at 09:00; Status UNV Potassium Chloride (Klor-Con) 20 meq DAILYWBKFT PO ; Start 04/12/18 at 13:00; Status Cancel Non-Formulary Medication (Tiotropium [place] (Spiriva)) 2 inh DAILY IH ; Start 04/13/18 at 09:00; Status UNV Potassium Chloride (Klor-Con) 40 meq 1X ONCE PO Last administered on 04/12/18 13:00; Start 04/12/18 at 13:00; Stop 04/12/18 at 13:01; Status DC Potassium Chloride (Klor-Con) 20 meq DAILYWBKFT PO ; Start 04/13/18 at 08:00; Stop 04/13/18 at 08:00; Status DC Azithromycin 500 mg/Sodium Chloride 250 ml @ 250 mls/hr Q24H IV Last administered on 04/16/18at 13:31; Start 04/12/18 at 13:00 Methylprednisolone Sodium Succinate (SOLU-Medrol 125MG VIAL) 100 mg Q8HRS IV Last administered on 04/16/18at 13:31; Start 04/12/18 at 14:00 Pantoprazole Sodium (Protonix) 40 mg DAILYAC PO ; Start 04/13/18 at 07:30; Status UNV Piperacillin Sod/ Tazobactam Sod 3.375 gm/Sodium Chloride 50 ml @ 100 mls/hr Q6HRS IV Last administered on 04/12/18at 13:50; Start 04/12/18 at 13:00; Stop 04/12 at 16:51; Status DC Budesonide (Pulmicort) 0.5 mg RTBID NEB Last administered on 04/16/18at 07:32; Start 04/12/18 at 13:00 Albuterol/ Ipratropium (Duoneb) 3 ml RTQID NEB Last administered on 04/16/18at 15 :31; Start 04/12/18 at 16:00 Clotrimazole (Mycelex) 10 mg 5XDAY MM ; Start 04/12/18 at 14:00; Stop 04/13/18 at 13:47; Status DC Potassium Chloride (Klor-Con) 40 meq 1X ONCE PO Last administered on 04/12/18at 17:00; Start 04/12/18 at 16:45; Stop 04/12/18 at 16:46; Status DC Potassium Chloride (Klor-Con) 20 meq DAILYWBKFT PO Last administered on at 07:59; Start 04/13/18 at 08:00 Lactobacillus Rhamnosus (Culturelle) 1 cap BID PO Last administered on 07:58; Start 04/12/18 at 21:00 Famotidine (Pepcid) 20 mg BID PO Last administered on 04/16/18 07:58; Start 04/12/18 at 21:00 Tramadol HCl (Ultram) 50 mg PRN Q6HRS PRN PO MODERATE PAIN Last administered on 04/16/18at 08:00; Start 04/12/18 at 21:45 Guaifenesin (Robitussin Dm) 10 ml PRN Q6HRS PRN PO COUGH Last administered on at 01:35; Start 04/13/18 at 11:45 Benzonatate (Tessalon Perle) 100 mg [id number] PO Last administered on 04/16/18at 13: 31; Start 04/13/18 at 12:00 Insulin Human Lispro (HumaLOG) 0-9 UNITS TIDWMEALS SQ ; Start 04/14/18 at 08:00; Stop 04/14/18 at 08:00; Status DC Dextrose (Dextrose 50%-Water Syringe) 12.5 gm PRN Q15MIN PRN IV SEE COMMENTS; Start 04/13/18 at 17:15; Stop 04/15/18 at 15:30; Status DC Insulin Glargine (Lantus) 10 units 1X ONCE SQ Last administered on 04/13/18at 17 :38; Start 04/13/18 at 17:30; Stop 04/13/18 at 17:31; Status DC Insulin Human Lispro (HumaLOG) 0-7 UNITS TIDWMEALS SQ ; Start 04/14/18 at 08:00; Stop 04/14/18 at 08:00; Status DC Dextrose (Dextrose 50%-Water Syringe) 12.5 gm PRN Q15MIN PRN IV SEE COMMENTS; Start 04/13/18 at 17:15; Status UNV Insulin Human Lispro (HumaLOG) 0-7 UNITS TIDWMEALS SQ Last administered on at 12:59; Start 04/13/18 at 17:30 Oxycodone HCl (Roxicodone) 10 mg PRN Q6HRS PRN PO SEVERE PAIN Last administered on 04/16/18at 12:53; Start 04/13/18 at 23:45 Insulin Glargine (Lantus) 8 units QHS SQ Last administered on 04/15/18at 21:41; Start 04/15/18 at 21:00 Dextrose (Dextrose 50%-Water Syringe) 12.5 gm PRN Q15MIN PRN IV SEE COMMENTS; Start 04/15/18 at 15:15 Active Scripts Active Cyclobenzaprine Hcl 5 Mg Tablet 5 Mg PO PRN TID PRN Prednisone 50 Mg Tablet 1 Tab PO DAILY Reglan (Metoclopramide Hcl) 10 Mg Tablet 0.5 Tab PO QID 30 Days Xanax (Alprazolam) 0.5 Mg Tablet 1 Tab PO BID Prednisone 20 Mg Tablet 40 Mg PO DAILY Furosemide 20 Mg Tablet 1 Tab PO DAILY Albuterol Sulfate Neb Soln (Albuterol Sulfate) 2.5 Mg/3 Ml Vial.neb 1 Vial NEB PRN Q4HRS Reported Erythromycin (Erythromycin Base) 250 Mg Tablet 250 Mg PO DAILY Vitamin D3 (Cholecalciferol (Vitamin D3)) 5,000 Unit Tablet 5,000 Unit PO DAILY Potassium Chloride 20 Meq Tablet.er 20 Meq PO DAILY Protonix (Pantoprazole Sodium) 20 Mg Tablet.dr 1 Tab PO DAILY Flonase Allergy Relief (Fluticasone Propionate) 9.9 Ml [place].susp 2 Sprays NS DAILY Atorvastatin Calcium 10 Mg Tablet 10 Mg PO HS Symbicort 160-4.5 Mcg Inhaler (Budesonide/Formoterol Fumarate) 10.2 Gm Hfa.aer.ad 2 Puff IH BID Spiriva (Tiotropium [place]) 18 Mcg Cap.w.dev 2 Inh IH DAILY Vitals/I & O Vital Sign - Last 24 Hours 04/15/18 04/15/18 04/15/1804/15/19 16:09 19:00 20:00 20:47 Temp 98.3 98.3 Pulse 104 Resp 18 B/P (MAP) 122/74 (90) Pulse Ox 93 97 O2 Delivery Nasal Cannula Nasal Cannula Nasal Cannula Nasal Cannula O2 Flow Rate 2.0 2.0 3.0 2.0 04/15/18 04/15/18 04/16/18 04/16/18 21:26 23:00 03:00 03:28 Temp 98.0 98.4 98.0 98.4 Pulse 96 72 Resp 18 18 B/P (MAP) 135/70 (91) 139/83 (101) Pulse Ox 97 96 99 96 O2 Delivery Nasal Cannula Nasal Cannula Nasal Cannula Nasal Cannula O2 Flow Rate 2.0 2.0 2.0 2.0 04/16/18 04/16/18 04/16/18 04/16/18 04:28 07:00 07:34 08:00 Temp 97.5 97.5 Pulse 64 Resp 12 20 B/P (MAP) 158/95 (116) Pulse Ox 96 94 99 97 O2 Delivery Nasal Cannula Nasal Cannula Nasal Cannula Nasal Cannula O2 Flow Rate 2.0 2.0 2.0 04/16/18 04/16/18 04/16/18 04/16/18 08:00 09:00 11:00 11:48 Temp 97.3 97.3 Pulse 88 Resp 20 12 B/P (MAP) 151/90 (110) Pulse Ox 97 97 98 O2 Delivery Nasal Cannula Nasal Cannula Nasal Cannula Nasal Cannula O2 Flow Rate 3.0 2.0 2.0 2.0 04/16/18 04/16/18 12:53 15:33 Resp 20 Pulse Ox 98 98 O2 Delivery Nasal Cannula Nasal Cannula O2 Flow Rate 2.0 2.0 Intake and Output 04/15/18 04/15/18 04/16/18 15:00 23:00 07:00 Intake Total 510 ml 1500 ml 550 ml Output Total 1040 ml 470 ml 1500 ml Balance -530 ml 1030 ml -950 ml ALIZA OLIVA MD Apr 16, 2018 16:10
[2018-04-16 19:00] VITALS: BP 130/82
[2018-04-16] MEDS: ATORVASTATIN CALCIUM 10 MG TABLET. PO SCH (21:45)
[2018-04-16] MEDS: INSULIN GLARGINE 300 UNITS/3 ML INSULN.PEN. SQ SCH (21:59)
[2018-04-16 23:00] VITALS: BP 157/82
--- NOTE | 2018-04-16 23:39 | RAD ---
THORACIC SPINE 3V History: UPPER BACK PAIN BETWEEN SHOULDERS, COUGH, COPD, CHF Comparison: None. Findings: 4 views thoracic spine are submitted. There is very mild reverse S-shaped scoliosis of the thoracic spine. Superior 3 thoracic vertebral bodies are poorly visualized on lateral view due to overlying bone and soft tissues. Thoracic vertebral body stature is overall maintained. No acute osseous abnormality is identified by radiographs. Impression: 1. No acute osseous abnormality is identified by radiographs. Electronically signed by: Nehemias Kingsley MD (04/16/2018 11:36 PM) [facility]
[2018-04-17] VITALS: BP 156/82
[2018-04-17] MEDS: ALBUTEROL SULFATE 2.5 MG/3 ML NEBU. NEB PRN (00:36)
[2018-04-17 03:00] VITALS: BP 156/82
[2018-04-17] MEDS: methylPREDNISolone SOD SUCC PF 125 MG/2 ML VIAL. IV SCH (05:58)
[2018-04-17 07:00] VITALS: BP 160/94
[2018-04-17] MEDS: IPRATRPIUM/ALBUTEROL 0.5/2.5MG 3 ML NEBU. NEB SCH ×2 (07:13→11:04)
[2018-04-17] MEDS: BUDESONIDE 0.5 MG/2 ML NEBU. NEB SCH (07:13)
[2018-04-17] MEDS: METOCLOPRAMIDE 5 MG TABLET. PO SCH ×2 (08:47→10:54)
[2018-04-17] MEDS: CHOLECALCIFEROL (VITAMIN D3) 5,000 UNIT CAPSULE PO SCH (08:47)
[2018-04-17] MEDS: FUROSEMIDE 20 MG TABLET PO SCH (08:47)
[2018-04-17] MEDS: oxyCODONE IR 5 MG TABLET PO PRN (08:47)
[2018-04-17] MEDS: BENZONATATE 100 MG CAPSULE. PO SCH (08:48)
[2018-04-17] MEDS: POTASSIUM CHLORIDE 20 MEQ TABLET.ER. PO SCH (08:48)
[2018-04-17] MEDS: FAMOTIDINE 20 MG TABLET. PO SCH (08:48)
[2018-04-17] MEDS: ALPRAZolam 0.5 MG TABLET PO SCH (08:48)
[2018-04-17] MEDS: LACTOBACILLUS RHAMNOSUS GG 1 CAPSULE. PO SCH (08:48)
[2018-04-17] MEDS: FLUTICASONE 50MCG/NASAL SPRAY 16GM BOTTLE. NS SCH (08:49)
[2018-04-17] MEDS: INSULIN LISPRO 300 UNITS/3 ML INSULN.PEN. SQ SCH ×2 (08:53→11:35)
[2018-04-17] MEDS ORDERED: MELO7.5T5 PO (09:52)
[2018-04-17] MEDS ORDERED: TIZA4CAP PO (09:52)
[2018-04-17] MEDS ORDERED: tiZANidine 4 MG TABLET. PO PRN (10:00)
--- NOTE | 2018-04-17 10:12 | PDOC ---
PULMONARY PROGRESS NOTES Subjective PT LESS SOA Vitals Vital Signs Date Time Temp Pulse Resp B/P (MAP) Pulse Ox O2 Delivery O2 Flow Rate FiO2 04/17/18 09:52 Nasal Cannula 1.0 04/17/18 07:15 99 04/17/18 07:00 97.4 89 14 160/94 (116) 97.4 ROS: No Nausea, No Chest Pain, No Abdominal Pain, No Increase Cough General: Alert, No acute distress Lungs: Wheezing Cardiovascular: S1, S2 Abdomen: Soft, Non-tender Neuro Exam: Alert Extremities: No Edema, Other Skin: Warm Labs Laboratory Tests Test 04/15/18 11:33 04/15/18 16:38 04/15/18 21:21 04/16/18 08:06 Glucose (Fingerstick) 241 mg/dL (70-99) 231 mg/dL (70-99) 273 mg/dL (70-99) 205 mg/dL (70-99) Test 04/16/18 11:34 04/16/18 17:19 04/16/18 20:13 04/17/18 08:04 Glucose (Fingerstick) 253 mg/dL (70-99) 156 mg/dL (70-99) 272 mg/dL (70-99) 160 mg/dL (70-99) Laboratory Tests Test 04/16/18 11:34 04/16/18 17:19 04/16/18 20:13 04/17/18 08:04 Glucose (Fingerstick) 253 mg/dL (70-99) 156 mg/dL (70-99) 272 mg/dL (70-99) 160 mg/dL (70-99) Medications Active Scripts Medications Dose Route/Sig Max Daily Dose Days Date Category Cyclobenzaprine Hcl 5 Mg Tablet 5 Mg PO PRN TID PRN 04/08/18 Rx Prednisone 50 Mg Tablet 1 Tab PO DAILY 03/27/18 Rx Erythromycin (Erythromycin Base) 250 Mg Tablet 250 Mg PO DAILY 03/15/18 Reported Vitamin D3 (Cholecalciferol (Vitamin D3)) 5,000 Unit Tablet 5,000 Unit PO DAILY 03/15/18 Reported Reglan (Metoclopramide Hcl) 10 Mg Tablet 0.5 Tab PO QID 30 02/14/18 Rx Xanax (Alprazolam) 0.5 Mg Tablet 1 Tab PO BID 02/03/18 Rx Prednisone 20 Mg Tablet 40 Mg PO DAILY 01/31/18 Rx Potassium Chloride 20 Meq Tablet.er 20 Meq PO DAILY 01/13/18 Reported Protonix (Pantoprazole Sodium) 20 Mg Tablet.dr 1 Tab PO DAILY 11/18/17 Reported Flonase Allergy Relief (Fluticasone Propionate) 9.9 Ml [place].susp 2 Sprays NS DAILY 11/18/17 Reported Furosemide 20 Mg Tablet 1 Tab PO DAILY 09/10/17 Rx Atorvastatin Calcium 10 Mg Tablet 10 Mg PO HS 08/21/17 Reported Albuterol Sulfate Neb Soln (Albuterol Sulfate) 2.5 Mg/3 Ml Vial.neb 1 Vial NEB PRN Q4HRS 07/10/17 Rx Symbicort 160-4.5 Mcg Inhaler (Budesonide/Formoterol Fumarate) 10.2 Gm Hfa.aer.ad 2 Puff IH BID 09/21/15 Reported Spiriva (Tiotropium [place]) 18 Mcg Cap.w.dev 2 Inh IH DAILY 09/21/15 Reported Impression . IMPRESSION: 1. Acute on chronic respiratory failure. 2. Acute exacerbation of chronic obstructive pulmonary disease. 3. End-stage bullous emphysema. The patient is scheduled to undergo bullectomy at [facility]. 4. BACK PAIN Plan . FILM ON THORACIC SPINE HOME IN [place] SIMMS MD Apr 17, 2018 10:11
[2018-04-17] MEDS ORDERED: KETOROLAC 30 MG/ML VIAL. IV ONE (10:30)
[2018-04-17] MEDS ORDERED: DOXY100C2 PO (10:36)
[2018-04-17] MEDS ORDERED: METH4TAB2 PO (10:36)
--- NOTE | 2018-04-17 10:38 | PDOC3 ---
Discharge Summary Visit Information Date of Admission: Apr 12, 2018 Date of Discharge: Apr 17, 2018 Admitting Diagnosis: Acute COPD exacerbation Final Diagnosis Acute on chronic combined respiratory failure COPD with exacerbation and acute bronchitis, Severe emphysematous disease, he is considered for bullectomy in the near future at tertiary center. Dysphagia with prior history of Rosanne esophagitis. htn CHF chronic combined, EF 50% GERD anemia hypokalemia replaced Muscle spasm Brief Hospital Course Allergies Allergies Coded Allergies Type Severity Reaction Last Updated Verified acetaminophen Allergy Intermediate TAKES NORCO AT HOME 01/29/18 Yes Vital Signs Vital Signs Date Time Temp Pulse Resp B/P (MAP) Pulse Ox O2 Delivery O2 Flow Rate FiO2 04/17/18 09:52 Nasal Cannula 1.0 04/17/18 07:15 99 04/17/18 07:00 97.4 89 14 160/94 (116) 97.4 Lab Results Laboratory Tests Test 04/15/18 11:33 04/15/18 16:38 04/15/18 21:21 04/16/18 08:06 Glucose (Fingerstick) 241 mg/dL (70-99) 231 mg/dL (70-99) 273 mg/dL (70-99) 205 mg/dL (70-99) Test 04/16/18 11:34 04/16/18 17:19 04/16/18 20:13 04/17/18 08:04 Glucose (Fingerstick) 253 mg/dL (70-99) 156 mg/dL (70-99) 272 mg/dL (70-99) 160 mg/dL (70-99) Laboratory Tests Test 04/16/18 11:34 04/16/18 17:19 04/16/18 20:13 04/17/18 08:04 Glucose (Fingerstick) 253 mg/dL (70-99) 156 mg/dL (70-99) 272 mg/dL (70-99) 160 mg/dL (70-99) Brief Hospital Course cough and shortness of breath for the last several days that has been worsening throughout the last 2 days. Patient states that he normally wears 2-3 L of oxygen at home. He states that his shortness breath is getting to the point where the oxygen is just not HELPING HIS SYMPTOMS HE can barely walk without struggling to breathe, his aDL' have been affected recent echo demonstrates DD RECENT CT CHEST CONFIRMS SEVERE EMPHYSEMA Patient admitted for further treatment in the inpatient setting. Patient was seen in consultation by pulmonology, he was started on broad-spectrum antibiotics and steroids. Patient had a very low recovery given his significant COPD with severe emphysema which is scheduled for bul[facility] at [facility]. The patient on the day of discharge complain of back pain which most likely is a muscular spasm with the much of his symptoms arising from frequent cough episodes. Reassurance has been provided in a muscle relaxant was recommended the patient will also have a Medrol Dosepak and doxycycline for 5 more days to complete a course of antibiotics at home. CONCERNS WERE ADDRESSED TO THE BEST OF MY ABILITIES GREATER THAN 35 MINUTES WERE SPENT IN THE DISCHARGE PROCESS THE PATIENT IN COUNSELING COGNITION OF CARE AND ARRANGEMENTS WERE SAFE DISCHARGE PHYSICAL EXAM: LUNGS WITH DIMINISHED BREATH SOUNDS NO ACCESSORY MUSCLE USE SEEN CARDIOVASCULAR THE S1-S2 REGULAR RHYTHM NO MURMURS GALLOPS OR RUBS Discharge Information Condition at Discharge: Improved (1 week with primary care) Follow Up: Weeks Disposition/Orders: D/C to Home Scheduled Albuterol Sulfate (Albuterol Sulfate Neb Soln) 2.5 Mg/3 Ml Vial.neb, 1 VIAL NEB PRN Q4HRS, #50 Prescribed by: TEVIN GOODWIN MD on 07/10/17 0144 Last Action: Continued on 04/12/18 1231 by TOMAS BAIG MD Alprazolam (Xanax) 0.5 Mg Tablet, 1 TAB PO BID, #28 Prescribed by: SHAYY GRIFFITH MD on 02/03/18 1306 Last Action: Continued on 04/12/18 1231 by TOMAS BAIG MD Atorvastatin Calcium (Atorvastatin Calcium) 10 Mg Tablet, 10 MG PO HS for FOR CHOLESTEROL, #30 Ref 0 (Reported) Entered as Reported by: Romero Bland on 08/21/17 0246 Last Action: Continued on 04/12/18 1231 by TOMAS BAIG MD Budesonide/Formoterol Fumarate (Symbicort 160-4.5 Mcg Inhaler) 10.2 Gm Hfa.aer.ad, 2 PUFF IH BID, #10.6 Ref 3 (Reported) Entered as Reported by: IMELDA PENNY on 09/21/15 2226 Last Action: Converted on 04/12/18 1231 by TOMAS BAIG MD Cholecalciferol (Vitamin D3) (Vitamin D3) 5,000 Unit Tablet, 5,000 UNIT PO DAILY for supplement, (Reported) Entered as Reported by: DOE NAGY on 03/15/182132 Last Action: Converted on 04/12/181230 by TOMAS BAIG MD Erythromycin Base (Erythromycin) 250 Mg Tablet, 250 MG PO DAILY for keep pneumonia down, (Reported) Entered as Reported by: DOE NAGY on 03/15/182134 Last Action: Continued on 04/12/181230 by TOMAS BAIG MD Fluticasone Propionate (Flonase Allergy Relief) 9.9 Ml [place].susp, 2 SPRAYS NS DAILY, (Reported) Entered as Reported by: FREDA SUAREZ on 11/18/172350 Last Action: Converted on 04/12/181230 by TOMAS BAIG MD Furosemide (Furosemide) 20 Mg Tablet, 1 TAB PO DAILY, #90 Ref 1 Prescribed by: AEC BARRY D.O. on 09/10/17 0407 Last Action: Continued on 04/12/181230 by TOMAS BAIG MD Meloxicam (Mobic) 7.5 Mg Tablet, 1-2 TAB PO DAILY for pain for 5 Days, Ref 1 Prescribed by: ALIZA OLIVA MD on 04/17/18 0952 Metoclopramide Hcl (Reglan) 10 Mg Tablet, 0.5 TAB PO QID for gerd for 30 Days, # 60 Prescribed by: TOMAS BAIG MD on 02/14/18 1437 Last Action: Continued on 04/12/181230 by TOMAS BAIG MD Pantoprazole Sodium (Protonix) 20 Mg Tablet.dr, 1 TAB PO DAILY, #30 (Reported) Entered as Reported by: FREDA SUAREZ on 11/18/172350 Last Action: Converted on 04/12/181230 by TOMAS BAIG MD Potassium Chloride (Potassium Chloride) 20 Meq Tablet.er, 20 MEQ PO DAILY for supplement, (Reported) Entered as Reported by: NANCY CHAPMAN on 01/13/182020 Last Action: Converted on 04/12/181230 by TOMAS BAIG MD Prednisone (Prednisone) 20 Mg Tablet, 40 MG PO DAILY for copd, #20 Prescribed by: HERMELINDO RICHARDSON MD on 01/31/18 1251 Last Action: HELD on 04/12/18 123 by TOMAS BAIG MD Prednisone (Prednisone) 50 Mg Tablet, 1 TAB PO DAILY, #5 Prescribed by: ELLI TOMPKINS on 03/27/18 0501 Last Action: HELD on 04/12/181230 by TOMAS BAIG MD Tiotropium [place] (Spiriva) 18 Mcg Cap.w.dev, 2 INH IH DAILY, #1 Ref 0 ( Reported) Entered as Reported by: IMELDA PENNY on 09/21/15 2224 Last Action: Converted on 04/12/181230 by TOMAS BAIG MD Scheduled PRN Cyclobenzaprine Hcl (Cyclobenzaprine Hcl) 5 Mg Tablet, 5 MG PO PRN TID PRN for PAIN, #15 Prescribed by: TEVIN GOODWIN MD on 04/08/18 0314 Last Action: Converted on 04/12/181230 by TOMAS BAIG MD Tizanidine Hcl (Tizanidine Hcl) 4 Mg Capsule, 4 MG PO QID PRN for MUSCLE SPASMS for 10 Days, #40 Prescribed by: ALIZA OLIVA MD on 04/17/18 0952 ALIZA OLIVA MD Apr 17, 2018 10:38
[2018-04-17 11:00] VITALS: BP 144/82
--- NOTE | 2018-04-17 12:25 | PDOC ---
Subjective: Subjective: Swallowing okay, coughing up green stuff, thinks he gets to go home. Objective: Vital Signs: Vital Signs Date Time Temp Pulse Resp B/P (MAP) Pulse Ox O2 Delivery O2 Flow Rate FiO2 04/17/18 11:05 Nasal Cannula 1.0 04/17/18 11:00 98.0 100 18 144/82 (102) 97 98.0 Labs: Laboratory Tests Test 04/16/18 17:19 04/16/18 20:13 04/17/18 08:04 04/17/18 11:23 Glucose (Fingerstick) 156 mg/dL 272 mg/dL 160 mg/dL 298 mg/dL Imaging: Thoracic spine x-ray Impression: 1. No acute osseous abnormality is identified by radiographs. PE: GEN: NAD LUNGS: NC NEURO/PSYCH: A & O 3 A/P: COPD/emphysema H/o abnormal swallowing -- Currently w/o GI complaints. DC per primary. ROBBIE ESCAMILLA Apr 17, 2018 12:25
--- NOTE | 2018-04-17 12:32 | NUR ---
Patient discharged- self care. Patient understands discharge instructions and new prescriptions. Patient has home oxygen tank with him to utilize upon discharge. Patient alert and stable upon discharge. IV line discontinued. All belongings with patient, patient accompanied by friend upon discharge.
== END 2018-04-17 13:25 | disposition home or self-care (01) | DRG 871 ==
LOC: ER 22:20 → 5 NORTH 04-12 00:58
PROVIDERS: ADMIT Family Medicine; ATTEND Family Medicine
DX: A41.9 Sepsis, unspecified organism (principal); J96.21 Acute and chronic respiratory failure with hypoxia; J96.22 Acute and chronic respiratory failure with hypercapnia; I50.43 Acute on chronic combined systolic (congestive) and diastolic (congestive) heart failure; J44.1 Chronic obstructive pulmonary disease with (acute) exacerbation; J44.0 Chronic obstructive pulmonary disease with (acute) lower respiratory infection; B15.9 Hepatitis A without hepatic coma; I11.0 Hypertensive heart disease with heart failure; J20.9 Acute bronchitis, unspecified; E87.6 Hypokalemia; D64.9 Anemia, unspecified; E11.9 Type 2 diabetes mellitus without complications; E78.5 Hyperlipidemia, unspecified; F41.9 Anxiety disorder, unspecified; G47.33 Obstructive sleep apnea (adult) (pediatric); I25.10 Atherosclerotic heart disease of native coronary artery without angina pectoris; I27.20 Pulmonary hypertension, unspecified; J32.0 Chronic maxillary sinusitis; K21.0 Gastro-esophageal reflux disease with esophagitis; R13.10 Dysphagia, unspecified; Z80.9 Family history of malignant neoplasm, unspecified; Z82.49 Family history of ischemic heart disease and other diseases of the circulatory system; Z82.5 Family history of asthma and other chronic lower respiratory diseases; Z87.891 Personal history of nicotine dependence; Z87.11 Personal history of peptic ulcer disease; Z99.81 Dependence on supplemental oxygen; Z88.8 Allergy status to other drugs, medicaments and biological substances
CPT/HCPCS: 36415; 71045; 72072; 80048; 80053; 82962; 83540; 83550; 83735; 83880; 84484; 85007; 85025; 87804; 93005; 94640; 94760; J0456; J0696; J1815; J1885; J2270; J2543; J2930; J7050; J7613; J7620; J7626; J7644; J8597; 99285-25; J7030

== ENCOUNTER 2018-04-18 18:51 | Emergency (ER) | payer MEDICARE, MEDICAID ==
[~2018-04-18] VITALS: Ht 180.3 cm; Wt 74.4 kg
[~2018-04-18 18:51] MED LIST changes: +DOXY100C2 PO; +MELO7.5T5 PO; +METH4TAB2 PO; +TIZA4CAP PO
--- NOTE | 2018-04-18 19:16 | PHYS DOC ---
Past Medical History Past Medical History: Bronchitis, CHF, COPD, Diabetes-Type II, Heart Disease, Hypertension Additional Past Medical Histor: EMPHYSEMA-on 3 L NC, PREDIABETIC Past Surgical History: Other Additional Past Surgical Histo: HERNIA REPAIR Alcohol Use: None Drug Use: None Adult General Chief Complaint Chief Complaint: HYPERGLYCEMIA HPI HPI Patient is a 57 year old male who presents with anxiety induced from a home glucometer reading of 340. POC glucose reading in ED was 121. He had no complaints other than anxiety for his home glucose reading and blurred vision that corrects with his glasses. He was discharged from [facility] 04/17/18 and has recovered from an acute exacerbation of his COPD. Pt is on prednisone chronically. His COPD is stable. Review of Systems Review of Systems Constitutional: Denies fever or chills Eyes: Denies change in visual acuity, redness, or eye pain [] HENT: Denies nasal congestion or sore throat [] RESP: Chronic shortness of breath/COPD - stable, under control Cardiovascular: denies chest pain GI: Denies abdominal pain, nausea, vomiting, bloody stools or diarrhea [] : Denies dysuria or hematuria [] Musculoskeletal: Denies back pain or joint pain [] Endocrine: Admits to polydipsia, denies numbness/tingling, polyuria. Neurologic: Denies headache, focal weakness or sensory changes. Admits to blurred vision but notes it improves when he puts on his glasses.[] All other systems were reviewed and found to be within normal limits, except as documented in this note. Allergies Allergies Allergies Coded Allergies Type Severity Reaction Last Updated Verified acetaminophen Allergy Intermediate TAKES NORCO AT HOME 01/29/18 Yes Physical Exam Physical Exam Constitutional: Well developed, well nourished, mild distress, non-toxic appearance. [] HENT: Normocephalic, atraumatic, bilateral external ears normal, oropharynx moist, no oral exudates, nose normal. [] Eyes: PERRLA, EOMI, conjunctiva normal, no discharge. [] Neck: Normal range of motion, no tenderness, supple, no stridor. [] Cardiovascular:Heart rate regular rhythm, no murmur [] Lungs & Thorax: Bilateral breath sounds clear to auscultation [] Abdomen: Bowel sounds normal, soft, no tenderness, no masses, no pulsatile masses. [] Skin: Warm, dry, no erythema, no rash. [] Back: No tenderness, no CVA tenderness. [] Extremities: No tenderness, no cyanosis, no clubbing, ROM intact, no edema. [] Neurologic: Alert and oriented X 3, normal motor function, normal sensory function, no focal deficits noted. [] Psychologic: Affect normal, judgement normal, mood normal. [] Current Patient Data Vital Signs Vital Signs Date Time Temp Pulse Resp B/P (MAP) Pulse Ox O2 Delivery O2 Flow Rate FiO2 04/18/18 19:43 88 20 143/81 (101) 98 Nasal Cannula 3.0 04/18/18 19:05 98.3 98.3 Lab Values Laboratory Tests Test 04/18/18 19:08 Glucose (Fingerstick) 121 mg/dL (70-99) H Radiology/Procedures Radiology/Procedures [] Course & Med Decision Making Course & Med Decision Making []Mr. Marcus Coleman Jr. is a 57 yo male presenting to the ED for asymptomatic hyperglycemia, with a reading of 340 on his home glucometer. Pt has no history of diabetes, but was told by another hospital following him to measure his glucose levels as they were worried he may have prediabetes and he is treated with steroids chronically for COPD. He reported blurriness but notes it is when he is not wearing his glasses. He denies polyuria, change in appetite, numbness/ tingling in extremities, and recent weight loss. He reports polyuria. Fingerstick blood glucose reading in ER (04/18/18) was 121. On PE his heart had RRR with no m. He has a known history of COPD. He is on prednisone, 4 LO2, Ipratropium, albuterol, and has CPAP machine for sleep apnea. His COPD is currently stable and he is at baseline. On PE his lungs were CTAB. Discussed with patient glucose levels measured in ED and how it should not be concerning for him. It is unclear why his home reading was so much higher, pt clinically stable in ER. Feel comfortable allowing pt to go home and told him to return should he have more high readings or become symptomatic. Dragon Disclaimer Dragon Disclaimer This electronic medical record was generated, in whole or in part, using a voice recognition dictation system. Departure Departure Impression: Primary Impression: Hyperglycemia Disposition: HOME, SELF-CARE Condition: STABLE Referrals: UNKNOWN PCP NAME (PCP) TEVIN GOODWIN MD Apr 18, 2018 19:16
[2018-04-18 19:43] VITALS: BP 143/81
[2018-05-30] MEDS ORDERED: GUAI100L12 PO (16:45)
[2018-05-30] MEDS ORDERED: DOCU-109 PO (16:45)
[2018-05-30] MEDS ORDERED: ACET325T9 PO (16:45)
[2018-05-30] MEDS ORDERED: AMOX1TAB11 PO (16:45)
[2018-05-30] MEDS ORDERED: MAG30ORA2 PO (16:45)
== END 2018-04-18 19:46 | disposition home or self-care (01) ==
LOC: ER 18:51
DX: E11.65 Type 2 diabetes mellitus with hyperglycemia (principal); I11.9 Hypertensive heart disease without heart failure; I50.9 Heart failure, unspecified; J43.9 Emphysema, unspecified; F41.9 Anxiety disorder, unspecified; Z88.6 Allergy status to analgesic agent
CPT/HCPCS: 82962; 99283

== ENCOUNTER 2018-04-28 16:52 | Inpatient (IN) | payer MEDICARE, MEDICAID ==
[~2018-04-28] VITALS: Ht 180.3 cm; Wt 74.0 kg
[2018-04-28 10:30] VITALS: BP 119/83
--- NOTE | 2018-04-28 17:47 | PHYS DOC ---
Past Medical History Past Medical History: Bronchitis, CHF, COPD, Diabetes-Type II, Heart Disease, Hypertension Additional Past Medical Histor: EMPHYSEMA-on 3 L NC, PREDIABETIC Past Surgical History: Other Additional Past Surgical Histo: HERNIA REPAIR Alcohol Use: None Drug Use: None Adult General Chief Complaint Chief Complaint: SHORTNESS OF BREATH HPI HPI Patient is a 57 year old AA male who presents to the ER with complaints of shortness of breath, productive cough with thick clear sputum, and increased need for O2 since last night. Pt states he has a hx of COPD, emphysema, and CHF. He denies any chest pain he reports mid back pain that increases with breathing. He denies any fever, nausea, vomiting, diarrhea, abdominal pain, sore throat, or ear pain. Pt states he has had to increase his oxygen at home to 4L because of his saturation being in the 80's. On arrival, pt's room air O2 is 88% with O2 at 2L/NC sat increased to 97-100%. Pt is speaking 3-4 words at a time. Review of Systems Review of Systems Constitutional: Denies fever or chills [] Eyes: Denies changes HENT: Denies nasal congestion or sore throat [] Respiratory: See HPI Cardiovascular: No additional information not addressed in HPI [] GI: Denies abdominal pain, nausea, vomiting, or diarrhea [] Musculoskeletal: See HPI Integument: Denies rash or skin lesions [] Neurologic: Denies headache, focal weakness or sensory changes [] Complete systems were reviewed and found to be within normal limits, except as documented in this note. Current Medications Current Medications Current Medications Medications (Trade) Dose Ordered Sig/Candy Start Time Stop Time Status Last Admin Dose Admin Albuterol Sulfate (Ventolin Neb Soln) 2.5 mg PRN Q4HRS PRN 04/28/18 20:30 Albuterol/ Ipratropium (Duoneb) 3 ml RTQID 04/28/18 21:00 04/28/18 23:20 3 ML Alprazolam (Xanax) 0.5 mg BID 04/28/18 21:00 04/28/18 23:09 0.5 MG Atorvastatin Calcium (Lipitor) 10 mg HS 04/28/18 21:00 04/28/18 23:09 10 MG Budesonide (Pulmicort) 0.5 mg RTBID 04/28/18 21:00 04/28/18 23:20 0.5 MG Cyclobenzaprine HCl (Flexeril) 5 mg PRN TID PRN 04/28/18 20:45 Dexamethasone Sodium Phosphate (Decadron) 10 mg 1X ONCE 04/28/18 18:15 04/28/18 18:16 DC 04/28/18 18:27 10 MG Doxycycline Hyclate (Vibra-Tab) 100 mg BID 04/28/18 21:00 04/28/18 23:09 100 MG Guaifenesin (Robitussin Dm) 10 ml PRN Q6HRS PRN 04/28/18 20:30 Metoclopramide HCl (Reglan) 5 mg QIDACHS 04/28/18 21:00 04/28/18 23:09 5 MG Morphine Sulfate (Morphine Sulfate) 4 mg 1X ONCE 04/28/18 19:30 04/28/18 19:31 DC 04/28/18 19:10 4 MG Nicotine (Nicoderm Cq 21mg) 1 patch PRN DAILY PRN 04/28/18 20:30 Ondansetron HCl (Zofran Odt) 4 mg PRN Q6HRS PRN 04/28/18 20:30 Ondansetron HCl (Zofran) 4 mg PRN Q6HRS PRN 04/28/18 20:30 Tizanidine HCl (Zanaflex) 4 mg PRN QID PRN 04/28/18 20:45 Tramadol HCl (Ultram) 50 mg PRN Q6HRS PRN 04/28/18 20:30 04/28/18 23:11 50 MG Allergies Allergies Allergies Coded Allergies Type Severity Reaction Last Updated Verified acetaminophen Allergy Intermediate TAKES NORCO AT HOME 01/29/18 Yes Physical Exam Physical Exam Constitutional: Well developed, well nourished, mild distress, non-toxic appearance. [] HENT: Normocephalic, atraumatic, bilateral external ears normal, oropharynx moist, nose normal. [] Eyes: conjunctiva normal, no discharge. [] Neck: Normal range of motion, no stridor. [] Cardiovascular:Heart rate regular rhythm, no murmur [] Lungs & Thorax: Bilateral breath sounds diminished throughout and coarse Abdomen: soft, no tenderness Skin: Warm, dry, no erythema, no rash. [] Back: No bony tenderness Extremities: No cyanosis, no clubbing, ROM intact, no edema. [] Neurologic: Alert and oriented X 3, no focal deficits noted. [] Psychologic: Affect normal, judgement normal, mood normal. [] Current Patient Data Vital Signs Vital Signs Date Time Temp Pulse Resp B/P (MAP) Pulse Ox O2 Delivery O2 Flow Rate FiO2 04/28/18 19:10 22 04/28/18 19:02 98 118/71 (87) 99 Nasal Cannula 3.0 04/28/18 17:00 98.8 98.8 Lab Values Laboratory Tests Test 04/28/18 18:07 White Blood Count 9.5 x10^3/uL (4.0-11.0) Red Blood Count 4.28 x10^6/uL (4.30-5.70) L Hemoglobin 13.0 g/dL (13.0-17.5) Hematocrit 39.5 % (39.0-53.0) Mean Corpuscular Volume 92 fL (79-100) Mean Corpuscular Hemoglobin 30 pg (25-35) Mean Corpuscular Hemoglobin Concent 33 g/dL (31-37) Red Cell Distribution Width 16.2 % (11.5-14.5) H Platelet Count 161 x10^3/uL (140-400) Neutrophils (%) (Auto) 95 % (31-73) H Lymphocytes (%) (Auto) 2 % (24-48) L Monocytes (%) (Auto) 3 % (0-9) Eosinophils (%) (Auto) 0 % (0-3) Basophils (%) (Auto) 0 % (0-3) Neutrophils # (Auto) 8.9 x10^3uL (1.8-7.7) H Lymphocytes # (Auto) 0.2 x10^3/uL (1.0-4.8) L Monocytes # (Auto) 0.3 x10^3/uL (0.0-1.1) Eosinophils # (Auto) 0.0 x10^3/uL (0.0-0.7) Basophils # (Auto) 0.0 x10^3/uL (0.0-0.2) Segmented Neutrophils % 92 % (35-66) H Lymphocytes % 2 % (24-48) L Monocytes % 6 % (0-10) Toxic Vacuolation Slight Platelet Estimate Adequate (ADEQUATE) Large Platelets Occ Sodium Level 142 mmol/L (136-145) Potassium Level 4.6 mmol/L (3.5-5.1) Chloride Level 97 mmol/L (98-107) L Carbon Dioxide Level 37 mmol/L (21-32) H Anion Gap 8 (6-14) Blood Urea Nitrogen 23 mg/dL (8-26) Creatinine 1.5 mg/dL (0.7-1.3) H Estimated GFR (Cockcroft-Gault) 58.2 BUN/Creatinine Ratio 15 (6-20) Glucose Level 119 mg/dL (70-99) H Calcium Level 9.4 mg/dL (8.5-10.1) Magnesium Level 2.3 mg/dL (1.8-2.4) Total Bilirubin 0.7 mg/dL (0.2-1.0) Aspartate Amino Transferase (AST) 28 U/L (15-37) Alanine Aminotransferase (ALT) 56 U/L (16-63) Alkaline Phosphatase 115 U/L (46-116) Troponin I Quantitative < 0.017 ng/mL (0.000-0.055) PK-Qps-N-Type Natriuretic Peptide 77 pg/mL (0-124) Total Protein 7.2 g/dL (6.4-8.2) Albumin 3.8 g/dL (3.4-5.0) Albumin/Globulin Ratio 1.1 (1.0-1.7) Laboratory Tests 04/28/18 18:07 Laboratory Tests 04/28/18 18:07 EKG EKG 1822- SR rate 92, no STEMI, read by Dr. Silva.[] Radiology/Procedures Radiology/Procedures CXR Emphysema changes and R pleural thickening, no acute findings read by Dr. Silva[] Course & Med Decision Making Course & Med Decision Making Pertinent Labs and Imaging studies reviewed. (See chart for details) [] Dragon Disclaimer Dragon Disclaimer This electronic medical record was generated, in whole or in part, using a voice recognition dictation system. Departure Departure Impression: Primary Impression: COPD with exacerbation Additional Impression: [id number] kidney injury Disposition: ADMITTED INPATIENT Admitting Physician: Em Craft Condition: STABLE Referrals: UNKNOWN PCP NAME (PCP) Problem Qualifiers Additional Impression: [id number] kidney injury Acute renal failure type: unspecified Chronic kidney disease stage: unspecified stage Qualified Codes: N17.9 - Acute kidney failure, unspecified; N18.9 - Chronic kidney disease, unspecified MARGARET JI APRN Apr 28, 2018 17:47
[2018-04-28] MEDS ORDERED: IPRATRPIUM/ALBUTEROL 0.5/2.5MG 3 ML NEBU. NEB ONE (18:15)
[2018-04-28] MEDS ORDERED: DEXAMETHASONE SOD PHOS 20 MG/5 ML VIAL. IV ONE (18:15)
[2018-04-28 18:22] LABS: BASO % 0 % (0-3); EOS % 0 % (0-3); HEMATOCRIT 39.5 % (39.0-53.0); LYMPH # 0.2 x10^3/uL (1.0-4.8); LYMPH % 2 % (24-48); MEAN CORPUSCULAR HEMOGLOBIN 30 pg (25-35); MEAN CORPUSCULAR HGB CONC 33 g/dL (31-37); MEAN CORPUSCULAR VOLUME 92 fL (79-100); MONO # 0.3 x10^3/uL (0.0-1.1); MONO % 3 % (0-9); NEUT # 8.9 x10^3uL (1.8-7.7); NEUT % 95 % (31-73); PLATELET COUNT 161 x10^3/uL (140-400); RED BLOOD COUNT 4.28 x10^6/uL (4.30-5.70); RED CELL DISTRIBUTION WIDTH 16.2 % (11.5-14.5); WHITE BLOOD COUNT 9.5 x10^3/uL (4.0-11.0)
[2018-04-28 18:34] LABS: CALCIUM 9.4 mg/dL (8.5-10.1); CREATININE 1.5 mg/dL (0.7-1.3); GFR 58.2; POTASSIUM 4.6 mmol/L (3.5-5.1)
[2018-04-28 18:40] LABS: ALBUMIN 3.8 g/dL (3.4-5.0); ALBUMIN/GLOBULIN RATIO 1.1 (1.0-1.7); MAGNESIUM 2.3 mg/dL (1.8-2.4); TOTAL BILIRUBIN 0.7 mg/dL (0.2-1.0); TOTAL PROTEIN 7.2 g/dL (6.4-8.2)
[2018-04-28 19:03] LABS: % LYMPHS 2 % (24-48); % MONOS 6 % (0-10); % SEGS 92 % (35-66); PLT ESTIMATE ADEQUATE (ADEQUATE); TOXIC VACUOLATION SLIGHT
[2018-04-28] MEDS ORDERED: MORPHINE SULFATE 4 MG/ML VIAL. IV ONE (19:30)
[2018-04-28] MEDS ORDERED: ONDANSETRON PF 4 MG/2 ML VIAL. IV ONE (19:30)
[2018-04-28] MEDS ORDERED: guaiFENesin DM 200MG/20MG 10 ML SYRUP PO PRN (20:30)
[2018-04-28] MEDS ORDERED: NICOTINE 21MG PATCH. TD PRN (20:30)
[2018-04-28] MEDS ORDERED: ALBUTEROL SULFATE 2.5 MG/3 ML NEBU. NEB PRN (20:30)
[2018-04-28] MEDS ORDERED: ONDANSETRON PF 4 MG/2 ML VIAL. IV PRN (20:30)
[2018-04-28] MEDS ORDERED: ONDANSETRON ODT 4 MG TAB.RAPDIS. PO PRN (20:30)
[2018-04-28] MEDS ORDERED: tiZANidine 4 MG TABLET. PO PRN (20:45)
[2018-04-28 23:00] VITALS: BP 114/82
--- NOTE | 2018-04-28 23:04 | NUR ---
The patient, KAYLA JONES, 57 y/o, M admitted by RAI DURANT MD, was given written information regarding hospital policies, unit procedures and contact persons. Valuables were checked and all questions answered. This RN assisted Ivette RINCON with admission and handed pt off at this time.
[2018-04-28] MEDS: ALPRAZolam 0.5 MG TABLET PO SCH (23:09)
[2018-04-28] MEDS: ATORVASTATIN CALCIUM 10 MG TABLET. PO SCH (23:09)
[2018-04-28] MEDS: METOCLOPRAMIDE 10 MG TABLET. PO SCH (23:09)
[2018-04-28] MEDS: DOXYCYCLINE HYCLATE 100 MG TABLET PO SCH (23:09)
[2018-04-28] MEDS: traMADol 50 MG TABLET PO PRN (23:11)
[2018-04-28] MEDS: IPRATRPIUM/ALBUTEROL 0.5/2.5MG 3 ML NEBU. NEB SCH (23:20)
[2018-04-28] MEDS: BUDESONIDE 0.5 MG/2 ML NEBU. NEB SCH (23:20)
[2018-04-29 03:00] VITALS: BP 119/81
[2018-04-29] MEDS: traMADol 50 MG TABLET PO PRN ×2 (05:46→17:28)
[2018-04-29 07:00] VITALS: BP 123/90
--- NOTE | 2018-04-29 07:00 | EKG ---
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
--- NOTE | 2018-04-29 07:49 | PDOC1 ---
History and Physical Date of Admission Date of Admission DATE: 04/29/18 TIME: 07:48 Identification/Chief Complaint Chief Complaint Shortness of breath Source Source: Patient History of Present Illness History of Present Illness 57 year old AA male who presents to the ER with complaints of shortness of breath, productive cough with thick clear sputum, and increased need for O2 since last night. Pt states he has a hx of COPD, emphysema, and CHF. He denies any chest pain he reports mid back pain that increases with breathing. He denies any fever, nausea, vomiting, diarrhea, abdominal pain, sore throat, or ear pain. Pt states he has had to increase his oxygen at home to 4L because of his saturation being in the 80's. On arrival, pt's room air O2 is 88% with O2 at 2L/NC sat increased to 97-100%. Pt is speaking 3-4 words at a time. He had a cr jump from 0.9 to 1.5 as well. Past Medical History Cardiovascular: CHF, HTN, Hyperlipidemia Pulmonary: Asthma, COPD, Pneumonia CENTRAL NERVOUS SYSTEM: Other GI: GERD Heme/Onc: No pertinent hx Hepatobiliary: No pertinent hx Psych: No pertinent hx Musculoskeletal: low back pain, Osteoarthritis Rheumatologic: No pertinent hx Infectious disease: No pertinent hx Renal/: No pertinent hx Endocrine: Diabetes Past Surgical History Past Surgical History: Hernia Repair Family History Family History: Heart Disease, Hypertension Social History ALCOHOL: none Drugs: None Current Problem List Problem List Problems Medical Problems: (1) COPD with exacerbation Status: Acute Current Medications Current Medications Current Medications Albuterol/ Ipratropium (Duoneb) 3 ml 1X ONCE NEB Last administered on at 17:59; Start 04/28/18 at 18:15; Stop 04/28/18 at 18:16; Status DC Dexamethasone Sodium Phosphate (Decadron) 10 mg 1X ONCE IV Last administered on 04/28/18at 18:27; Start 04/28/18 at 18:15; Stop 04/28/18 at 18:16; Status DC Morphine Sulfate (Morphine Sulfate) 4 mg 1X ONCE IV Last administered on at 19:10; Start 04/28/18 at 19:30; Stop 04/28/18 at 19:31; Status DC Ondansetron HCl (Zofran) 4 mg 1X ONCE IV Last administered on 04/28/18at 19:14 ; Start 04/28/18 at 19:30; Stop 04/28/18 at 19:31; Status DC Albuterol/ Ipratropium (Duoneb) 3 ml RTQID NEB Last administered on 04/28/18at 23:20; Start 04/28/18 at 21:00 Guaifenesin (Robitussin Dm) 10 ml PRN Q6HRS PRN PO COUGH; Start 04/28/18 at 20: 30 Nicotine (Nicoderm Cq 21mg) 1 patch PRN DAILY PRN TD SMOKING CESSATION; Start 04/28/18 at 20:30 Tramadol HCl (Ultram) 50 mg PRN Q6HRS PRN PO PAIN Last administered on at 05:46; Start 04/28/18 at 20:30 Ondansetron HCl (Zofran) 4 mg PRN Q6HRS PRN IV NAUSEA/VOMITING; Start 04/28/18 at 20:30 Ondansetron HCl (Zofran Odt) 4 mg PRN Q6HRS PRN PO NAUSEA/VOMITING; Start 04/28 at 20:30 Albuterol Sulfate (Ventolin Neb Soln) 2.5 mg PRN Q4HRS PRN NEB SHORTNESS OF BREATH; Start 04/28/18 at 20:30 Alprazolam (Xanax) 0.5 mg BID PO Last administered on 04/28/18at 23:09; Start at 21:00 Atorvastatin Calcium (Lipitor) 10 mg HS PO Last administered on 04/28/18at 23:09 ; Start 04/28/18 at 21:00 Erythromycin (E-Mycin) 250 mg DAILY PO ; Start 04/29/18 at 09:00 Furosemide (Lasix) 20 mg DAILY PO ; Start 04/29/18 at 09:00 Metoclopramide HCl (Reglan) 5 mg QIDACHS PO Last administered on 04/28/18at 23: 09; Start 04/28/18 at 21:00 Prednisone (Prednisone) 40 mg DAILY PO ; Start 04/29/18 at 09:00 Budesonide (Pulmicort) 0.5 mg RTBID NEB Last administered on 04/28/18at 23:20; Start 04/28/18 at 21:00 Vitamin D (Vitamin D3) 5,000 unit DAILY PO ; Start 04/29/18 at 09:00 Cyclobenzaprine HCl (Flexeril) 5 mg PRN TID PRN PO MUSCLE SPASMS; Start at 20:45 Doxycycline Hyclate (Vibra-Tab) 100 mg BID PO Last administered on 04/28/18at 23 :09; Start 04/28/18 at 21:00 Fluticasone Propionate (Flonase) 2 spray DAILY NS ; Start 04/29/18 at 09:00 Meloxicam (Mobic) 7.5 mg DAILY PO ; Start 04/29/18 at 09:00 Pantoprazole Sodium (Protonix) 40 mg DAILYAC PO ; Start 04/29/18 at 07:30 Non-Formulary Medication (Tiotropium Closplint (Spiriva)) 2 inh DAILY IH ; Start 04/29/18 at 09:00; Status UNV Tizanidine HCl (Zanaflex) 4 mg PRN QID PRN PO MUSCLE SPASMS; Start 04/28/18 at 20:45 Albuterol/ Ipratropium (Duoneb) 3 ml RTQID NEB ; Start 04/29/18 at 08:00; Stop 04/29/18 at 08:00; Status DC Active Scripts Active Doxycycline Hyclate 100 Mg Capsule 1 Cap PO BID Medrol (Methylprednisolone) 4 Mg Tab.ds.pk 1 Pkg PO UD Tizanidine Hcl 4 Mg Capsule 4 Mg PO QID PRN 10 Days Mobic (Meloxicam) 7.5 Mg Tablet 1-2 Tab PO DAILY 5 Days Cyclobenzaprine Hcl 5 Mg Tablet 5 Mg PO PRN TID PRN Prednisone 50 Mg Tablet 1 Tab PO DAILY Reglan (Metoclopramide Hcl) 10 Mg Tablet 0.5 Tab PO QID 30 Days Xanax (Alprazolam) 0.5 Mg Tablet 1 Tab PO BID Prednisone 20 Mg Tablet 40 Mg PO DAILY Furosemide 20 Mg Tablet 1 Tab PO DAILY Albuterol Sulfate Neb Soln (Albuterol Sulfate) 2.5 Mg/3 Ml Vial.neb 1 Vial NEB PRN Q4HRS Reported Erythromycin (Erythromycin Base) 250 Mg Tablet 250 Mg PO DAILY Vitamin D3 (Cholecalciferol (Vitamin D3)) 5,000 Unit Tablet 5,000 Unit PO DAILY Potassium Chloride 20 Meq Tablet.er 20 Meq PO DAILY Protonix (Pantoprazole Sodium) 20 Mg Tablet.dr 1 Tab PO DAILY Flonase Allergy Relief (Fluticasone Propionate) 9.9 Ml [place].susp 2 Sprays NS DAILY Atorvastatin Calcium 10 Mg Tablet 10 Mg PO HS Symbicort 160-4.5 Mcg Inhaler (Budesonide/Formoterol Fumarate) 10.2 Gm Hfa.aer.ad 2 Puff IH BID Spiriva (Tiotropium Closplint) 18 Mcg Cap.w.dev 2 Inh IH DAILY Allergies Allergies: Coded Allergies: acetaminophen (Verified Allergy, Intermediate, TAKES NORCO AT HOME, ) ROS General: YES: Fatigue, Malaise; No: Chills, Night Sweats, Appetite, Other PSYCHOLOGICAL ROS: No: Anxiety, Behavioral Disorder, Concentration difficultie , Decreased libido, Depression, Disorientation, Hallucinations, Hostility, Irritablity, Memory difficulties, Mood Swings, Obsessive thoughts, Physical abuse, Sexual abuse, Sleep disturbances, Suicidal ideation, Other Eyes: No Blurry vision, No Decreased vision, No Double vision, No Dry eyes, No Excessive tearing, No Eye Pain, No Itchy Eyes, No Loss of vision, No Photophobia , No Scotomata, No Uses contacts, No Uses glasses, No Other HEENT: No: Heacaches, Visual Changes, Hearing change, Nasal congestion, Nasal discharge, Oral lesions, Sinus pain, Sore Throat, Epistaxis, Sneezing, Snoring, Tinnitus, Vertigo, Vocal changes, Other ALLERGY AND IMMUNOLOGY: No: Hives, Insect Bite Sensitivity, Itchy/Watery Eyes, Nasal Congestion, Post Nasal Drip, Seasonal Allergies, Other Hematological and Lymphatic: No: Bleeding Problems, Blood Clots, Blood Transfusions, Brusing, Night Sweats, Pallor, Swollen Lymph Nodes, Other ENDOCRINE: No: Breast Changes, Galactorrhea, Hair Pattern Changes, Hot Flashes , Malaise/lethargy, Mood Swings, Palpitations, Polydipsia/polyuria, Skin Changes , Temperature Intolerance, Unexpected Weight Changes, Other Breast: No New/Changing Breast Lumps, No Nipple changes, No Nipple discharge, No Other Respiratory: YES: Cough, Shortness of breath, SOB with excertion, Tachypnea, Wheezing; No: Hemoptysis, Orthopnea, Pleuritic Pain, Sputum Changes, Stridor, Other Cardiovascular: No Chest Pain, No Palpitations, No Orthopnea, No Paroxysmal Noc. Dyspnea, No Edema, No Lt Headedness, No Other Gastrointestinal: No Nausea, No Vomiting, No Abdominal Pain, No Diarrhea, No Constipation, No Melena, No Hematochezia, No Other Genitourinary: No Dysuria, No Frequency, No Incontinence, No Hematuria, No Retention, No Discharge, No Urgency, No Pain, No Flank Pain, No Other, No , No , No , No , No , No , No Musculoskeletal: No Gait Disturbance, No Joint Pain, No Joint Stiffness, No Joint Swelling, No Muscle Pain, No Muscular Weakness, No Pain In:, No Swelling In:, No Other Neurological: No Behavorial Changes, No Bowel/Bladder ControlChng, No Confusion , No Dizziness, No Gait Disturbance, No Headaches, No Impaired Coord/balance, No Memory Loss, No Numbness/Tingling, No Seizures, No Speech Problems, No Tremors, No Visual Changes, No Weakness, No Other Skin: No Dry Skin, No Eczema, No Hair Changes, No Lumps, No Mole Changes, No Mottling, No Nail Changes, No Pruritus, No Rash, No Skin Lesion Changes, No Other, No Acne Physical Exam General: Alert, Oriented X3, Cooperative, No acute distress HEENT: Atraumatic, PERRLA, EOMI, Mucous membr. moist/pink Lungs: Other (Diffuse wheezes) Heart: S1S2, RRR Abdomen: Normal bowel sounds, Soft, No tenderness, No hepatosplenomegaly, No masses Extremities: No clubbing, No cyanosis, No edema, Normal pulses, No tenderness/ swelling Skin: No rashes, No breakdown, No significant lesion Neuro: Normal gait, Normal speech, Strength at 5/5 X4 ext, Normal tone, Sensation intact, Cranial nerves 3-12 NL, Reflexes 2+ Psych/Mental Status: Mental status NL, Mood NL Vitals Vitals Vital Signs Date Time Temp Pulse Resp B/P (MAP) Pulse Ox O2 Delivery O2 Flow Rate FiO2 04/29/18 07:31 18 99 Nasal Cannula 2.0 04/29/18 03:00 98.6 108 119/81 (94) 98.6 Labs Labs Laboratory Tests Test 04/28/18 18:07 White Blood Count 9.5 x10^3/uL (4.0-11.0) Red Blood Count 4.28 x10^6/uL (4.30-5.70) Hemoglobin 13.0 g/dL (13.0-17.5) Hematocrit 39.5 % (39.0-53.0) Mean Corpuscular Volume 92 fL (79-100) Mean Corpuscular Hemoglobin 30 pg (25-35) Mean Corpuscular Hemoglobin Concent 33 g/dL (31-37) Red Cell Distribution Width 16.2 % (11.5-14.5) Platelet Count 161 x10^3/uL (140-400) Neutrophils (%) (Auto) 95 % (31-73) Lymphocytes (%) (Auto) 2 % (24-48) Monocytes (%) (Auto) 3 % (0-9) Eosinophils (%) (Auto) 0 % (0-3) Basophils (%) (Auto) 0 % (0-3) Neutrophils # (Auto) 8.9 x10^3uL (1.8-7.7) Lymphocytes # (Auto) 0.2 x10^3/uL (1.0-4.8) Monocytes # (Auto) 0.3 x10^3/uL (0.0-1.1) Eosinophils # (Auto) 0.0 x10^3/uL (0.0-0.7) Basophils # (Auto) 0.0 x10^3/uL (0.0-0.2) Segmented Neutrophils % 92 % (35-66) Lymphocytes % 2 % (24-48) Monocytes % 6 % (0-10) Toxic Vacuolation Slight Platelet Estimate Adequate (ADEQUATE) Large Platelets Occ Sodium Level 142 mmol/L (136-145) Potassium Level 4.6 mmol/L (3.5-5.1) Chloride Level 97 mmol/L (98-107) Carbon Dioxide Level 37 mmol/L (21-32) Anion Gap 8 (6-14) Blood Urea Nitrogen 23 mg/dL (8-26) Creatinine 1.5 mg/dL (0.7-1.3) Estimated GFR (Cockcroft-Gault) 58.2 BUN/Creatinine Ratio 15 (6-20) Glucose Level 119 mg/dL (70-99) Calcium Level 9.4 mg/dL (8.5-10.1) Magnesium Level 2.3 mg/dL (1.8-2.4) Total Bilirubin 0.7 mg/dL (0.2-1.0) Aspartate Amino Transf (AST/SGOT) 28 U/L (15-37) Alanine Aminotransferase (ALT/SGPT) 56 U/L (16-63) Alkaline Phosphatase 115 U/L (46-116) Troponin I Quantitative < 0.017 ng/mL (0.000-0.055) SZ-Roy-C-Type Natriuretic Peptide 77 pg/mL (0-124) Total Protein 7.2 g/dL (6.4-8.2) Albumin 3.8 g/dL (3.4-5.0) Albumin/Globulin Ratio 1.1 (1.0-1.7) Laboratory Tests Test 04/28/18 18:07 White Blood Count 9.5 x10^3/uL (4.0-11.0) Red Blood Count 4.28 x10^6/uL (4.30-5.70) Hemoglobin 13.0 g/dL (13.0-17.5) Hematocrit 39.5 % (39.0-53.0) Mean Corpuscular Volume 92 fL (79-100) Mean Corpuscular Hemoglobin 30 pg (25-35) Mean Corpuscular Hemoglobin Concent 33 g/dL (31-37) Red Cell Distribution Width 16.2 % (11.5-14.5) Platelet Count 161 x10^3/uL (140-400) Neutrophils (%) (Auto) 95 % (31-73) Lymphocytes (%) (Auto) 2 % (24-48) Monocytes (%) (Auto) 3 % (0-9) Eosinophils (%) (Auto) 0 % (0-3) Basophils (%) (Auto) 0 % (0-3) Neutrophils # (Auto) 8.9 x10^3uL (1.8-7.7) Lymphocytes # (Auto) 0.2 x10^3/uL (1.0-4.8) Monocytes # (Auto) 0.3 x10^3/uL (0.0-1.1) Eosinophils # (Auto) 0.0 x10^3/uL (0.0-0.7) Basophils # (Auto) 0.0 x10^3/uL (0.0-0.2) Segmented Neutrophils % 92 % (35-66) Lymphocytes % 2 % (24-48) Monocytes % 6 % (0-10) Toxic Vacuolation Slight Platelet Estimate Adequate (ADEQUATE) Large Platelets Occ Sodium Level 142 mmol/L (136-145) Potassium Level 4.6 mmol/L (3.5-5.1) Chloride Level 97 mmol/L (98-107) Carbon Dioxide Level 37 mmol/L (21-32) Anion Gap 8 (6-14) Blood Urea Nitrogen 23 mg/dL (8-26) Creatinine 1.5 mg/dL (0.7-1.3) Estimated GFR (Cockcroft-Gault) 58.2 BUN/Creatinine Ratio 15 (6-20) Glucose Level 119 mg/dL (70-99) Calcium Level 9.4 mg/dL (8.5-10.1) Magnesium Level 2.3 mg/dL (1.8-2.4) Total Bilirubin 0.7 mg/dL (0.2-1.0) Aspartate Amino Transf (AST/SGOT) 28 U/L (15-37) Alanine Aminotransferase (ALT/SGPT) 56 U/L (16-63) Alkaline Phosphatase 115 U/L (46-116) Troponin I Quantitative < 0.017 ng/mL (0.000-0.055) MM-Err-V-Type Natriuretic Peptide 77 pg/mL (0-124) Total Protein 7.2 g/dL (6.4-8.2) Albumin 3.8 g/dL (3.4-5.0) Albumin/Globulin Ratio 1.1 (1.0-1.7) Images Images CXR - Findings of COPD worse on the left side it may be secondary to bullous disease. VTE Prophylaxis Ordered VTE Prophylaxis Devices: Yes VTE Pharmacological Prophylaxi: Yes Assessment/Plan Assessment/Plan A/P: Acute on chronic combined respiratory failure - will give steroids, aggressive nebs COPD with exacerbation and acute bronchitis - doxycycline, consult pulm. Needs bullectomy consideration at [facility] as has previously been discussed Dysphagia with prior history of Rosanne esophagitis - stable today htn - will cont home meds CHF chronic combined, EF 50% - may be in acute exacerbation, difficult to tell and less likely with negative BNP GERD - cont PPI Anemia - of chronic disease. WILNER - new onset, likely vasomotor due to poor PO intake with his COPD exacerbation. Avoid nephrotoxic meds, IVF FEN - IVF, general diet PPX - lovenox FULL CODE Inpatient for WILNER and acute COPD exacerbation KIRSTIE TREVINO MD Apr 29, 2018 07:49
[2018-04-29] MEDS ORDERED: IPRATRPIUM/ALBUTEROL 0.5/2.5MG 3 ML NEBU. NEB SCH (08:00)
[2018-04-29] MEDS: BUDESONIDE 0.5 MG/2 ML NEBU. NEB SCH ×2 (08:02→19:24)
[2018-04-29] MEDS: IPRATRPIUM/ALBUTEROL 0.5/2.5MG 3 ML NEBU. NEB SCH ×4 (08:02→19:24)
--- NOTE | 2018-04-29 08:02 | RAD ---
CHEST PA LATERAL CLINICAL INDICATION: soa COMPARISON: 04/11/2018 FINDINGS: Heart is normal in size. Hyperlucent left lung is seen. Lungs are hyperinflated. No pneumothorax or pleural effusion. Visualized bony thorax is within normal limits. IMPRESSION: Findings of COPD worse on the left side it may be secondary to bullous disease. Electronically signed by: Luke Yoo DO (04/29/2018 7:59 AM) [facility]
[2018-04-29] MEDS ORDERED: NON FORMULARY ITEM (Tiotropium Bromide (Spiriva) 2 INH) IH SCH (09:00)
[2018-04-29] MEDS: FUROSEMIDE 20 MG TABLET PO SCH (09:33)
[2018-04-29] MEDS: CHOLECALCIFEROL (VITAMIN D3) 5,000 UNIT CAPSULE PO SCH (09:33)
[2018-04-29] MEDS: CYCLOBENZAPRINE 10 MG TABLET. PO PRN ×2 (09:33→17:42)
[2018-04-29] MEDS: ERYTHROMYCIN BASE 250 MG TABLET PO SCH (09:33)
[2018-04-29] MEDS: PANTOPRAZOLE 40 MG TABLET.DR. PO SCH (09:34)
[2018-04-29] MEDS: ALPRAZolam 0.5 MG TABLET PO SCH ×2 (09:34→20:39)
[2018-04-29] MEDS: MELOXICAM 7.5 MG TABLET PO SCH ×2 (09:35→14:46)
[2018-04-29] MEDS: METOCLOPRAMIDE 10 MG TABLET. PO SCH ×4 (09:36→20:39)
[2018-04-29] MEDS: FLUTICASONE 50MCG/NASAL SPRAY 16GM BOTTLE. NS SCH (09:37)
[2018-04-29] MEDS: DOXYCYCLINE HYCLATE 100 MG TABLET PO SCH ×2 (09:42→20:39)
[2018-04-29] MEDS: predniSONE 20 MG TABLET PO SCH (09:42)
[2018-04-29 11:00] VITALS: BP 125/84
[2018-04-29 15:00] VITALS: BP 128/80
[2018-04-29 19:00] VITALS: BP 130/88
[2018-04-29] MEDS: ATORVASTATIN CALCIUM 10 MG TABLET. PO SCH (20:39)
[2018-04-29 23:00] VITALS: BP_SYST 134; BP_DIAS 101; BP_DIAS 83
[2018-04-30] MEDS: traMADol 50 MG TABLET PO PRN ×3 (01:15→15:51)
[2018-04-30 03:00] VITALS: BP 101/73
[2018-04-30] MEDS: CYCLOBENZAPRINE 10 MG TABLET. PO PRN ×2 (06:01→15:51)
[2018-04-30] MEDS: BUDESONIDE 0.5 MG/2 ML NEBU. NEB SCH (06:06)
[2018-04-30] MEDS: IPRATRPIUM/ALBUTEROL 0.5/2.5MG 3 ML NEBU. NEB SCH ×3 (06:06→15:28)
[2018-04-30 07:00] VITALS: BP 122/54
[2018-04-30] MEDS: predniSONE 20 MG TABLET PO SCH (07:43)
[2018-04-30] MEDS: CHOLECALCIFEROL (VITAMIN D3) 5,000 UNIT CAPSULE PO SCH (07:43)
[2018-04-30] MEDS: ERYTHROMYCIN BASE 250 MG TABLET PO SCH (07:43)
[2018-04-30] MEDS: ALPRAZolam 0.5 MG TABLET PO SCH (07:44)
[2018-04-30] MEDS: FUROSEMIDE 20 MG TABLET PO SCH (07:44)
[2018-04-30] MEDS: DOXYCYCLINE HYCLATE 100 MG TABLET PO SCH (07:44)
[2018-04-30] MEDS: PANTOPRAZOLE 40 MG TABLET.DR. PO SCH (07:44)
[2018-04-30] MEDS: METOCLOPRAMIDE 10 MG TABLET. PO SCH ×2 (07:44→12:15)
[2018-04-30] MEDS: FLUTICASONE 50MCG/NASAL SPRAY 16GM BOTTLE. NS SCH (07:46)
--- NOTE | 2018-04-30 08:10 | PDOC ---
PROGRESS NOTES Chief Complaint Chief Complaint A/P: Acute on chronic combined respiratory failure - will give steroids, aggressive nebs COPD with exacerbation and acute bronchitis - doxycycline, consult pulm. Needs bullectomy consideration at [facility] as has previously been discussed Dysphagia with prior history of Rosanne esophagitis - stable today htn - will cont home meds CHF chronic combined, EF 50% - may be in acute exacerbation, difficult to tell and less likely with negative BNP GERD - cont PPI Anemia - of chronic disease. WILNER - new onset, likely vasomotor due to poor PO intake with his COPD exacerbation. Avoid nephrotoxic meds, IVF FEN - IVF, general diet PPX - lovenox FULL CODE Inpatient for WILNER and acute COPD exacerbation History of Present Illness History of Present Illness 57 year old AA male who presents to the ER with complaints of shortness of breath, productive cough with thick clear sputum, and increased need for O2 since last night. Pt states he has a hx of COPD, emphysema, and CHF. He denies any chest pain he reports mid back pain that increases with breathing. He denies any fever, nausea, vomiting, diarrhea, abdominal pain, sore throat, or ear pain. Pt states he has had to increase his oxygen at home to 4L because of his saturation being in the 80's. On arrival, pt's room air O2 is 88% with O2 at 2L/NC sat increased to 97-100%. Pt is speaking 3-4 words at a time. He had a cr jump from 0.9 to 1.5 as well which improved to 1 with IVF resuscitation and changing from NSAIDs to tramadol for his back pain. His breathing improved with aggressive pulm toileting. Seen by pulmonology, will have outpatient f/u at [facility]. Seen ambulating the halls going to the refrigerator. Plan: Ok for d/c with renal function improved to baseline and COPD still severe at his baseline Vitals Vitals Vital Signs Date Time Temp Pulse Resp B/P (MAP) Pulse Ox O2 Delivery O2 Flow Rate FiO2 04/30/18 07:45 20 96 Nasal Cannula 2.0 04/30/18 03:00 98.8 104 101/73 (82) 98.8 Physical Exam General: Alert, Oriented X3, Cooperative, No acute distress Lungs: Wheezing Abdomen: Normal bowel sounds, Soft, No tenderness, No hepatosplenomegaly, No masses Extremities: No clubbing, No cyanosis, No edema, Normal pulses, No tenderness/ swelling Skin: No rashes, No breakdown, No significant lesion Assessment and Plan Assessmemt and Plan Problems Medical Problems: (1) COPD with exacerbation Status: Acute Comment Review of Relevant I have reviewed the following items franki (where applicable) has been applied. Labs Laboratory Tests Test 04/28/18 18:07 White Blood Count 9.5 x10^3/uL (4.0-11.0) Red Blood Count 4.28 x10^6/uL (4.30-5.70) Hemoglobin 13.0 g/dL (13.0-17.5) Hematocrit 39.5 % (39.0-53.0) Mean Corpuscular Volume 92 fL (79-100) Mean Corpuscular Hemoglobin 30 pg (25-35) Mean Corpuscular Hemoglobin Concent 33 g/dL (31-37) Red Cell Distribution Width 16.2 % (11.5-14.5) Platelet Count 161 x10^3/uL (140-400) Neutrophils (%) (Auto) 95 % (31-73) Lymphocytes (%) (Auto) 2 % (24-48) Monocytes (%) (Auto) 3 % (0-9) Eosinophils (%) (Auto) 0 % (0-3) Basophils (%) (Auto) 0 % (0-3) Neutrophils # (Auto) 8.9 x10^3uL (1.8-7.7) Lymphocytes # (Auto) 0.2 x10^3/uL (1.0-4.8) Monocytes # (Auto) 0.3 x10^3/uL (0.0-1.1) Eosinophils # (Auto) 0.0 x10^3/uL (0.0-0.7) Basophils # (Auto) 0.0 x10^3/uL (0.0-0.2) Segmented Neutrophils % 92 % (35-66) Lymphocytes % 2 % (24-48) Monocytes % 6 % (0-10) Toxic Vacuolation Slight Platelet Estimate Adequate (ADEQUATE) Large Platelets Occ Sodium Level 142 mmol/L (136-145) Potassium Level 4.6 mmol/L (3.5-5.1) Chloride Level 97 mmol/L (98-107) Carbon Dioxide Level 37 mmol/L (21-32) Anion Gap 8 (6-14) Blood Urea Nitrogen 23 mg/dL (8-26) Creatinine 1.5 mg/dL (0.7-1.3) Estimated GFR (Cockcroft-Gault) 58.2 BUN/Creatinine Ratio 15 (6-20) Glucose Level 119 mg/dL (70-99) Calcium Level 9.4 mg/dL (8.5-10.1) Magnesium Level 2.3 mg/dL (1.8-2.4) Total Bilirubin 0.7 mg/dL (0.2-1.0) Aspartate Amino Transf (AST/SGOT) 28 U/L (15-37) Alanine Aminotransferase (ALT/SGPT) 56 U/L (16-63) Alkaline Phosphatase 115 U/L (46-116) Troponin I Quantitative < 0.017 ng/mL (0.000-0.055) MB-Yeo-V-Type Natriuretic Peptide 77 pg/mL (0-124) Total Protein 7.2 g/dL (6.4-8.2) Albumin 3.8 g/dL (3.4-5.0) Albumin/Globulin Ratio 1.1 (1.0-1.7) Medications Current Medications Albuterol/ Ipratropium (Duoneb) 3 ml 1X ONCE NEB Last administered on at 17:59; Start 04/28/18 at 18:15; Stop 04/28/18 at 18:16; Status DC Dexamethasone Sodium Phosphate (Decadron) 10 mg 1X ONCE IV Last administered on 04/28/18at 18:27; Start 04/28/18 at 18:15; Stop 04/28/18 at 18:16; Status DC Morphine Sulfate (Morphine Sulfate) 4 mg 1X ONCE IV Last administered on at 19:10; Start 04/28/18 at 19:30; Stop 04/28/18 at 19:31; Status DC Ondansetron HCl (Zofran) 4 mg 1X ONCE IV Last administered on 04/28/18at 19:14 ; Start 04/28/18 at 19:30; Stop 04/28/18 at 19:31; Status DC Albuterol/ Ipratropium (Duoneb) 3 ml RTQID NEB Last administered on 04/30/18at 06:06; Start 04/28/18 at 21:00 Guaifenesin (Robitussin Dm) 10 ml PRN Q6HRS PRN PO COUGH; Start 04/28/18 at 20: 30 Nicotine (Nicoderm Cq 21mg) 1 patch PRN DAILY PRN TD SMOKING CESSATION; Start 04/28/18 at 20:30 Tramadol HCl (Ultram) 50 mg PRN Q6HRS PRN PO PAIN Last administered on at 07:45; Start 04/28/18 at 20:30 Ondansetron HCl (Zofran) 4 mg PRN Q6HRS PRN IV NAUSEA/VOMITING; Start 04/28/18 at 20:30 Ondansetron HCl (Zofran Odt) 4 mg PRN Q6HRS PRN PO NAUSEA/VOMITING; Start 04/28 at 20:30 Albuterol Sulfate (Ventolin Neb Soln) 2.5 mg PRN Q4HRS PRN NEB SHORTNESS OF BREATH; Start 04/28/18 at 20:30 Alprazolam (Xanax) 0.5 mg BID PO Last administered on 04/30/18 07:44; Start at 21:00 Atorvastatin Calcium (Lipitor) 10 mg HS PO Last administered on 04/29/18at 20:39 ; Start 04/28/18 at 21:00 Erythromycin (E-Mycin) 250 mg DAILY PO Last administered on 04/30/18 07:43; Start 04/29/18 at 09:00 Furosemide (Lasix) 20 mg DAILY PO Last administered on 04/30/18 07:44; Start 04/29/18 at 09:00 Metoclopramide HCl (Reglan) 5 mg QIDACHS PO Last administered on 04/30/18 07: 44; Start 04/28/18 at 21:00 Prednisone (Prednisone) 40 mg DAILY PO Last administered on 04/30/18 07:43; Start 04/29/18 at 09:00 Budesonide (Pulmicort) 0.5 mg RTBID NEB Last administered on 04/30/18 06:06; Start 04/28/18 at 21:00 Vitamin D (Vitamin D3) 5,000 unit DAILY PO Last administered on 04/30/18 07:43 ; Start 04/29/18 at 09:00 Cyclobenzaprine HCl (Flexeril) 5 mg PRN TID PRN PO MUSCLE SPASMS Last administered on 04/30/18at 06:01; Start 04/28/18 at 20:45 Doxycycline Hyclate (Vibra-Tab) 100 mg BID PO Last administered on 04/30/18at 07 :44; Start 04/28/18 at 21:00 Fluticasone Propionate (Flonase) 2 spray DAILY NS Last administered on at 07:46; Start 04/29/18 at 09:00 Meloxicam (Mobic) 7.5 mg DAILY PO Last administered on 04/29/18at 09:35; Start 04/29/18 at 09:00 Pantoprazole Sodium (Protonix) 40 mg DAILYAC PO Last administered on 04/30/18at 07:44; Start 04/29/18 at 07:30 Non-Formulary Medication (Tiotropium Paden (Spiriva)) 2 inh DAILY IH ; Start 04/29/18 at 09:00; Status UNV Tizanidine HCl (Zanaflex) 4 mg PRN QID PRN PO MUSCLE SPASMS; Start 04/28/18 at 20:45 Albuterol/ Ipratropium (Duoneb) 3 ml RTQID NEB ; Start 04/29/18 at 08:00; Stop 04/29/18 at 08:00; Status DC Active Scripts Active Doxycycline Hyclate 100 Mg Capsule 1 Cap PO BID Medrol (Methylprednisolone) 4 Mg Tab.ds.pk 1 Pkg PO UD Tizanidine Hcl 4 Mg Capsule 4 Mg PO QID PRN 10 Days Mobic (Meloxicam) 7.5 Mg Tablet 1-2 Tab PO DAILY 5 Days Cyclobenzaprine Hcl 5 Mg Tablet 5 Mg PO PRN TID PRN Prednisone 50 Mg Tablet 1 Tab PO DAILY Reglan (Metoclopramide Hcl) 10 Mg Tablet 0.5 Tab PO QID 30 Days Xanax (Alprazolam) 0.5 Mg Tablet 1 Tab PO BID Prednisone 20 Mg Tablet 40 Mg PO DAILY Furosemide 20 Mg Tablet 1 Tab PO DAILY Albuterol Sulfate Neb Soln (Albuterol Sulfate) 2.5 Mg/3 Ml Vial.neb 1 Vial NEB PRN Q4HRS Reported Erythromycin (Erythromycin Base) 250 Mg Tablet 250 Mg PO DAILY Vitamin D3 (Cholecalciferol (Vitamin D3)) 5,000 Unit Tablet 5,000 Unit PO DAILY Potassium Chloride 20 Meq Tablet.er 20 Meq PO DAILY Protonix (Pantoprazole Sodium) 20 Mg Tablet.dr 1 Tab PO DAILY Flonase Allergy Relief (Fluticasone Propionate) 9.9 Ml [place].susp 2 Sprays NS DAILY Atorvastatin Calcium 10 Mg Tablet 10 Mg PO HS Symbicort 160-4.5 Mcg Inhaler (Budesonide/Formoterol Fumarate) 10.2 Gm Hfa.aer.ad 2 Puff IH BID Spiriva (Tiotropium Paden) 18 Mcg Cap.w.dev 2 Inh IH DAILY Vitals/I & O Vital Sign - Last 24 Hours 04/29/18 04/29/18 04/29/18 04/29/18 11:00 12:02 15:00 15:46 Temp 98.2 98.0 98.2 98.0 Pulse 94 90 Resp 18 18 B/P (MAP) 125/84 (98) 128/80 (96) Pulse Ox 95 94 O2 Delivery Nasal Cannula Nasal Cannula Nasal Cannula Nasal Cannula O2 Flow Rate 3.0 2.0 3.0 2.0 04/29/18 04/29/18 04/29/18 04/29/18 17:28 19:00 19:20 19:24 Temp 97.9 97.9 Pulse 117 Resp 20 18 B/P (MAP) 130/88 (102) Pulse Ox 94 96 97 O2 Delivery Nasal Cannula Nasal Cannula Nasal Cannula Nasal Cannula O2 Flow Rate 2.0 3.0 2.0 2.0 04/29/18 04/30/18 04/30/18 04/30/18 23:00 01:15 02:50 03:00 Temp 98.2 98.8 98.2 98.8 Pulse 101 104 Resp 18 18 16 18 B/P (MAP) 134/83 (100) 101/73 (82) Pulse Ox 88 88 88 96 O2 Delivery Room Air Nasal Cannula Nasal Cannula Nasal Cannula O2 Flow Rate 2.0 2.0 3.0 04/30/18 04/30/18 06:06 07:45 Resp 20 Pulse Ox 96 O2 Delivery Nasal Cannula Nasal Cannula O2 Flow Rate 2.0 2.0 Intake and Output 04/29/18 04/29/18 04/30/18 15:00 23:00 07:00 Intake Total 600 ml 300 ml 360 ml Output Total 875 ml Balance 600 ml 300 ml -515 ml KIRSTIE TREVINO MD Apr 30, 2018 08:10
[2018-04-30 11:00] VITALS: BP 129/77
[2018-04-30] MEDS ORDERED: TRAM50TA PO (11:05)
--- NOTE | 2018-04-30 11:33 | PDOC3 ---
Discharge Summary Visit Information Date of Admission: Apr 28, 2018 Date of Discharge: Apr 30, 2018 Admitting Diagnosis: WILNER, COPD exacerbation Final Diagnosis Problems Medical Problems: (1) COPD with exacerbation Status: Acute Brief Hospital Course Allergies Allergies Coded Allergies Type Severity Reaction Last Updated Verified acetaminophen Allergy Intermediate TAKES NORCO AT HOME 01/29/18 Yes Vital Signs Vital Signs Date Time Temp Pulse Resp B/P (MAP) Pulse Ox O2 Delivery O2 Flow Rate FiO2 04/30/18 11:20 98 Nasal Cannula 2.0 04/30/18 07:45 20 04/30/18 07:00 98.5 118 122/54 (76) 98.5 Lab Results Laboratory Tests Test 04/28/18 18:07 White Blood Count 9.5 x10^3/uL (4.0-11.0) Red Blood Count 4.28 x10^6/uL (4.30-5.70) Hemoglobin 13.0 g/dL (13.0-17.5) Hematocrit 39.5 % (39.0-53.0) Mean Corpuscular Volume 92 fL (79-100) Mean Corpuscular Hemoglobin 30 pg (25-35) Mean Corpuscular Hemoglobin Concent 33 g/dL (31-37) Red Cell Distribution Width 16.2 % (11.5-14.5) Platelet Count 161 x10^3/uL (140-400) Neutrophils (%) (Auto) 95 % (31-73) Lymphocytes (%) (Auto) 2 % (24-48) Monocytes (%) (Auto) 3 % (0-9) Eosinophils (%) (Auto) 0 % (0-3) Basophils (%) (Auto) 0 % (0-3) Neutrophils # (Auto) 8.9 x10^3uL (1.8-7.7) Lymphocytes # (Auto) 0.2 x10^3/uL (1.0-4.8) Monocytes # (Auto) 0.3 x10^3/uL (0.0-1.1) Eosinophils # (Auto) 0.0 x10^3/uL (0.0-0.7) Basophils # (Auto) 0.0 x10^3/uL (0.0-0.2) Segmented Neutrophils % 92 % (35-66) Lymphocytes % 2 % (24-48) Monocytes % 6 % (0-10) Toxic Vacuolation Slight Platelet Estimate Adequate (ADEQUATE) Large Platelets Occ Sodium Level 142 mmol/L (136-145) Potassium Level 4.6 mmol/L (3.5-5.1) Chloride Level 97 mmol/L (98-107) Carbon Dioxide Level 37 mmol/L (21-32) Anion Gap 8 (6-14) Blood Urea Nitrogen 23 mg/dL (8-26) Creatinine 1.5 mg/dL (0.7-1.3) Estimated GFR (Cockcroft-Gault) 58.2 BUN/Creatinine Ratio 15 (6-20) Glucose Level 119 mg/dL (70-99) Calcium Level 9.4 mg/dL (8.5-10.1) Magnesium Level 2.3 mg/dL (1.8-2.4) Total Bilirubin 0.7 mg/dL (0.2-1.0) Aspartate Amino Transf (AST/SGOT) 28 U/L (15-37) Alanine Aminotransferase (ALT/SGPT) 56 U/L (16-63) Alkaline Phosphatase 115 U/L (46-116) Troponin I Quantitative < 0.017 ng/mL (0.000-0.055) JJ-Ypu-I-Type Natriuretic Peptide 77 pg/mL (0-124) Total Protein 7.2 g/dL (6.4-8.2) Albumin 3.8 g/dL (3.4-5.0) Albumin/Globulin Ratio 1.1 (1.0-1.7) Brief Hospital Course 57 year old AA male who presents to the ER with complaints of shortness of breath, productive cough with thick clear sputum, and increased need for O2 since last night. Pt states he has a hx of COPD, emphysema, and CHF. He denies any chest pain he reports mid back pain that increases with breathing. He denies any fever, nausea, vomiting, diarrhea, abdominal pain, sore throat, or ear pain. Pt states he has had to increase his oxygen at home to 4L because of his saturation being in the 80's. On arrival, pt's room air O2 is 88% with O2 at 2L/NC sat increased to 97-100%. Pt is speaking 3-4 words at a time. He had a cr jump from 0.9 to 1.5 as well which improved to 1 with IVF resuscitation and changing from NSAIDs to tramadol for his back pain. His breathing improved with aggressive pulm toileting. Seen by pulmonology, will have outpatient f/u at [facility]. Seen ambulating the halls going to the refrigerator. Plan: Ok for d/c with renal function improved to baseline and COPD still severe at his baseline Greater than 30 minutes spent on discharge including coordinating f/u. A/P: Acute on chronic combined respiratory failure - will give steroids, aggressive nebs COPD with exacerbation and acute bronchitis - doxycycline, consult pulm. 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 WILNER - new onset, likely vasomotor due to poor PO intake with his COPD exacerbation. Avoid nephrotoxic meds, IVF FEN - IVF, general diet Discharge Information Condition at Discharge: Improved Follow Up: Weeks (2) Disposition/Orders: D/C to Home Scheduled Albuterol Sulfate (Albuterol Sulfate Neb Soln) 2.5 Mg/3 Ml Vial.neb, 1 VIAL NEB PRN Q4HRS, #50 Prescribed by: TEVIN GOODWIN MD on 07/10/17 0144 Last Action: Continued on 04/28/182020 by RAI DURANT Alprazolam (Xanax) 0.5 Mg Tablet, 1 TAB PO BID, #28 Prescribed by: SHAYY GRIFFTIH MD on 02/03/18 1306 Last Action: Continued on 04/28/182020 by RAI DURANT Atorvastatin Calcium (Atorvastatin Calcium) 10 Mg Tablet, 10 MG PO HS for FOR CHOLESTEROL, #30 Ref 0 (Reported) Entered as Reported by: Romero Bland on 08/21/17 0246 Last Action: Continued on 04/28/182020 by RAI DURANT Budesonide/Formoterol Fumarate (Symbicort 160-4.5 Mcg Inhaler) 10.2 Gm Hfa.aer.ad, 2 PUFF IH BID, #10.6 Ref 3 (Reported) Entered as Reported by: IMELDA PENNY on 09/21/15 2226 Last Action: Converted on 04/28/182020 by RAI DURANT Cholecalciferol (Vitamin D3) (Vitamin D3) 5,000 Unit Tablet, 5,000 UNIT PO DAILY for supplement, (Reported) Entered as Reported by: DOE NAGY on 03/15/182132 Last Action: Converted on 04/28/182020 by RAI DURANT Doxycycline Hyclate (Doxycycline Hyclate) 100 Mg Capsule, 1 CAP PO BID for COPD , #10 Prescribed by: ALIZA OLIVA MD on 04/17/18 1036 Last Action: Converted on 04/28/182020 by RAI DURANT Erythromycin Base (Erythromycin) 250 Mg Tablet, 250 MG PO DAILY for keep pneumonia down, (Reported) Entered as Reported by: DOE NAGY on 03/15/182134 Last Action: Continued on 04/28/182020 by RAI DURANT Fluticasone Propionate (Flonase Allergy Relief) 9.9 Ml [place].susp, 2 SPRAYS NS DAILY, (Reported) Entered as Reported by: FREDA SUAREZ on 11/18/17 2351 Last Action: Converted on 04/28/182020 by RAI DURANT Furosemide (Furosemide) 20 Mg Tablet, 1 TAB PO DAILY, #90 Ref 1 Prescribed by: ACE BARRY D.O. on 09/10/17 0407 Last Action: Continued on 04/28/182020 by RAI DURANT Meloxicam (Mobic) 7.5 Mg Tablet, 1-2 TAB PO DAILY for pain for 5 Days, Ref 1 Prescribed by: ALIZA OLIVA MD on 04/17/18 0905 Last Action: Converted on 04/28/182020 by RAI DURANT Methylprednisolone (Medrol) 4 Mg Tab.ds.pk, 1 PKG PO UD for COPD, #1 Prescribed by: ALIZA OLIVA MD on 04/17/18 1036 Last Action: HELD on 04/28/182020 by RAI DURANT Metoclopramide Hcl (Reglan) 10 Mg Tablet, 0.5 TAB PO QID for gerd for 30 Days, # 60 Prescribed by: TOMAS BAIG MD on 02/14/18 1437 Last Action: Continued on 04/28/182020 by RAI DURANT Pantoprazole Sodium (Protonix) 20 Mg Tablet.dr, 1 TAB PO DAILY, #30 (Reported) Entered as Reported by: FREDA SUAREZ on 11/18/172350 Last Action: Converted on 04/28/182020 by RAI DURANT Potassium Chloride (Potassium Chloride) 20 Meq Tablet.er, 20 MEQ PO DAILY for supplement, (Reported) Entered as Reported by: NANCY CHAPMAN on 01/13/182020 Last Action: HELD on 04/28/182020 by RAI DURANT Prednisone (Prednisone) 20 Mg Tablet, 40 MG PO DAILY for copd, #20 Prescribed by: HERMELINDO RICHARDSON MD on 01/31/18 1251 Last Action: Continued on 04/28/182020 by RAI DURANT Prednisone (Prednisone) 50 Mg Tablet, 1 TAB PO DAILY, #5 Prescribed by: ELLI TOMPKINS on 03/27/18 0501 Last Action: HELD on 04/28/182020 by RAI DURANT Tiotropium [place] (Spiriva) 18 Mcg Cap.w.dev, 2 INH IH DAILY, #1 Ref 0 ( Reported) Entered as Reported by: IMELDA PENNY on 09/21/152223 Last Action: Converted on 04/28/182020 by RAI DURANT Scheduled PRN Cyclobenzaprine Hcl (Cyclobenzaprine Hcl) 5 Mg Tablet, 5 MG PO PRN TID PRN for PAIN, #15 Prescribed by: TEVIN GOODWIN MD on 04/08/18 0314 Last Action: Converted on 04/28/182020 by RAI DURANT Tizanidine Hcl (Tizanidine Hcl) 4 Mg Capsule, 4 MG PO QID PRN for MUSCLE SPASMS for 10 Days, #40 Prescribed by: ALIZA OLIVA MD on 04/17/18 7744 Last Action: Converted on 04/28/182020 by RAI DURANT Tramadol Hcl (Tramadol Hcl) 50 Mg Tablet, 50-100 MG PO PRN Q6HRS PRN for PAIN for 6 Days, #32 Prescribed by: KIRSTIE TREVINO MD on 04/30/18 0780 KIRSTIE TREVINO MD Apr 30, 2018 11:33
--- NOTE | 2018-04-30 11:38 | CONS ---
DATE OF CONSULTATION: ATTENDING PHYSICIAN: Dr. Craft. REASON FOR CONSULTATION: Dyspnea. HISTORY OF PRESENT ILLNESS: The patient is a 57-year-old with history of end-stage COPD. He is on home oxygen on a 24-hour basis at 3 liters and also uses BiPAP p.r.n. at bedtime and not on a regular basis. He smoked for about 35-40 years before quitting in 2016. He has extensive bullous lung disease. He was brought into the hospital with increased shortness of breath. He has a cough, which is productive of white sputum. The patient had no chest pain. No headaches, no nausea or vomiting or diarrhea. No dysuria. No focal weakness. No lower extremity edema. On arrival, his saturations were in the 80s. I have been asked to see him for further evaluation. I have reviewed his chest x-ray and it shows evidence of emphysema and bullous lung disease. PAST MEDICAL HISTORY: Significant for history of severe COPD, history of chronic respiratory failure, history of bullous lung disease and worse on the left, CHF, hypertension, pneumonia and osteoarthritis. PAST SURGICAL HISTORY: Hernia repair. FAMILY HISTORY: Hypertension, heart disease. SOCIAL HISTORY: Smoked for about 35-40 years before quitting in 2013. ALLERGIES: ACETAMINOPHEN. MEDICATIONS: All reviewed, as listed in the MRAD, including oral prednisone, oral Lasix, DuoNebs. REVIEW OF SYSTEMS: Twelve-point system obtained. Pertinent positives discussed in my history of present illness, otherwise noncontributory. All systems that were negative were reviewed as well. PHYSICAL EXAMINATION: VITAL SIGNS: Stable. Pulse ox 96% on 3 liters. NECK: Supple. LUNGS: Show diminished breath sounds bilaterally. CARDIOVASCULAR: Regular rate. ABDOMEN: Soft, nontender. EXTREMITIES: With no pitting edema. LABORATORY DATA: Reviewed. White cell count 9.5, hemoglobin 13.0, platelets are 161. BUN and creatinine is 23 and 1.5. IMPRESSION: 1. Wlggo-gx-uvemnvz hypoxic respiratory failure secondary to acute exacerbation of chronic obstructive pulmonary disease. 2. Abnormal chest x-ray and previously abnormal CT chest with extensive bullous emphysema on the left and also minimally in the right. He may be a candidate for bullectomy. Currently, he has been referred to and is supposed to see a thoracic surgeon. 3. No definite pneumonia seen. RECOMMENDATIONS: 1. Discussed with the patient the importance of using BiPAP on a regular basis at night time. He understands that. 2. Continue with present oxygen. 3. Continue DuoNebs. 4. Continue oral steroids. 5. Antibiotic orally was initiated. Clinically, less likely pneumonia. Would recommend for a few days. 6. Discussed with the patient to follow up with Thoracic Surgery at for evaluation for bullectomy. VIN MEAD MD DR: ALTAGRACIA/efrain JOB#: [id number] / [id number]
[2018-04-30 12:43] LABS: CALCIUM 9.2 mg/dL (8.5-10.1); GFR 92.9; POTASSIUM 4.5 mmol/L (3.5-5.1)
--- NOTE | 2018-04-30 15:01 | NUR ---
JACOB consulted to provide assistance with AD and address living situation. Pt is well known to SW from previous admission and has been provided with community resources in the past. Pt lives with family [facility] and [facility]. Pt also has home oxygen. JACOB spoke with pt in room and provided with area of aging info for case management services. Pt stated 'he had too much paperwork last time and did not call to request assistance'. SW provided pt with AD form and pt reported he is not ready to complete AD form at this time. Pt stated he has transportation.
[2018-05-30] MEDS ORDERED: MAG30ORA2 PO (16:45)
[2018-05-30] MEDS ORDERED: DOCU-109 PO (16:45)
[2018-05-30] MEDS ORDERED: ACET325T9 PO (16:45)
[2018-05-30] MEDS ORDERED: AMOX1TAB11 PO (16:45)
[2018-05-30] MEDS ORDERED: GUAI100L12 PO (16:45)
== END 2018-04-30 16:55 | disposition home or self-care (01) | DRG 682 ==
LOC: ER 16:52 → 5 NORTH 21:55
PROVIDERS: ADMIT Internal Medicine; ATTEND Internal Medicine
DX: N17.0 Acute kidney failure with tubular necrosis (principal); J96.21 Acute and chronic respiratory failure with hypoxia; I13.0 Hypertensive heart and chronic kidney disease with heart failure and stage 1 through stage 4 chronic kidney disease, or unspecified chronic kidney disease; J44.1 Chronic obstructive pulmonary disease with (acute) exacerbation; I50.42 Chronic combined systolic (congestive) and diastolic (congestive) heart failure; J44.0 Chronic obstructive pulmonary disease with (acute) lower respiratory infection; J43.9 Emphysema, unspecified; J20.9 Acute bronchitis, unspecified; N18.9 Chronic kidney disease, unspecified; E11.22 Type 2 diabetes mellitus with diabetic chronic kidney disease; E78.5 Hyperlipidemia, unspecified; K21.9 Gastro-esophageal reflux disease without esophagitis; M19.90 Unspecified osteoarthritis, unspecified site; R13.10 Dysphagia, unspecified; D63.8 Anemia in other chronic diseases classified elsewhere; Z99.81 Dependence on supplemental oxygen; Z88.6 Allergy status to analgesic agent; Z82.49 Family history of ischemic heart disease and other diseases of the circulatory system; Z87.891 Personal history of nicotine dependence
CPT/HCPCS: 36415; 71046; 80048; 80053; 83735; 83880; 84484; 85007; 85025; 93005; 94640; 94760; 96374; 96375; J1100; J2270; J2405; J7512; J7620; J7626; J8597; 99285-25

== ENCOUNTER 2018-05-04 22:49 | Emergency (ER) | payer MEDICARE, MEDICAID ==
[~2018-05-04] VITALS: Ht 180.3 cm; Wt 73.9 kg
[~2018-05-04 22:49] MED LIST changes: +TRAM50TA PO
[2018-05-04] MEDS ORDERED: IPRATRPIUM/ALBUTEROL 0.5/2.5MG 3 ML NEBU. NEB ONE (23:45)
[2018-05-05 00:19] LABS: BASO % 0 % (0-3); EOS % 0 % (0-3); HEMATOCRIT 34.5 % (39.0-53.0); HEMOGLOBIN 11.4 g/dL (13.0-17.5); LYMPH # 0.3 x10^3/uL (1.0-4.8); LYMPH % 4 % (24-48); MEAN CORPUSCULAR HEMOGLOBIN 31 pg (25-35); MEAN CORPUSCULAR HGB CONC 33 g/dL (31-37); MEAN CORPUSCULAR VOLUME 93 fL (79-100); MONO # 0.4 x10^3/uL (0.0-1.1); MONO % 7 % (0-9); NEUT # 5.5 x10^3uL (1.8-7.7); NEUT % 89 % (31-73); PLATELET COUNT 128 x10^3/uL (140-400); RED BLOOD COUNT 3.72 x10^6/uL (4.30-5.70); RED CELL DISTRIBUTION WIDTH 16.1 % (11.5-14.5); WHITE BLOOD COUNT 6.2 x10^3/uL (4.0-11.0)
[2018-05-05 00:39] LABS: CALCIUM 9.1 mg/dL (8.5-10.1); CREATININE 0.8 mg/dL (0.7-1.3); GFR 120.1; POTASSIUM 3.9 mmol/L (3.5-5.1)
[2018-05-05 00:44] LABS: ALBUMIN/GLOBULIN RATIO 0.9 (1.0-1.7); TOTAL BILIRUBIN 0.4 mg/dL (0.2-1.0); TOTAL PROTEIN 6.2 g/dL (6.4-8.2)
[2018-05-05] MEDS ORDERED: oxyCODONE IR 5 MG TABLET PO ONE (01:15)
[2018-05-05 01:20] VITALS: BP 140/96
[2018-05-05] MEDS ORDERED: PRED20TA PO (01:39)
--- NOTE | 2018-05-05 02:17 | RAD ---
AP portable chest radiograph 05/05/2018 Clinical History: Shortness of breath. Two AP erect portable digital radiographs of the chest were obtained. Comparison study is dated 04/28/2018. The cardiac silhouette is normal in size. The thoracic aorta is tortuous. Patchy right lower lobe subsegmental atelectasis and/or infiltrate is noted. No pneumothorax or pleural effusion is seen. The osseous structures are unchanged. Impression: Patchy right lower lobe atelectasis and/or infiltrate. Electronically signed by: Herminio Blevins MD (05/05/2018 2:14 AM) [facility]
[2018-05-05 02:23] LABS: INFLUENZA A PATIENT NEGATIVE (NEGATIVE); INFLUENZA B PATIENT NEGATIVE (NEGATIVE)
--- NOTE | 2018-05-05 02:41 | PHYS DOC ---
Past Medical History Past Medical History: Bronchitis, CHF, COPD, Diabetes-Type II, Heart Disease, Hypertension Additional Past Medical Histor: EMPHYSEMA-on 3 L NC, PREDIABETIC Past Surgical History: Other Additional Past Surgical Histo: HERNIA REPAIR Alcohol Use: None Drug Use: None Adult General Chief Complaint Chief Complaint: SHORTNESS OF BREATH [facility] HPI Patient is a 57 year old [male who presents with shortness of breath. He is a frequent visitor to this emergency room he has end-stage COPD on home oxygen at baseline. He says he thinks he is getting an upper respiratory infection he has had some cough with increasing green-colored sputum no real fevers he does have occasional chest pain with coughing. This is a pretty common presentation he looks actually better to me then he has before when I have seen him in the emergency room Review of Systems Review of Systems Constitutional: Denies fever or chills [] Eyes: Denies change in visual acuity, redness, or eye pain [] HENT Respiratory: Cardiovascular: No additional information not addressed in HPI [] GI: Musculoskeletal: Denies back pain or joint pain [] Integument: Denies rash or skin lesions [] Neurologic: Denies headache, focal weakness or sensory changes [] Endocrine: Denies polyuria or polydipsia [] All other systems were reviewed and found to be within normal limits, except as documented in this note. Current Medications Current Medications Current Medications Medications (Trade) Dose Ordered Sig/[facility] Start Time Stop Time Status Last Admin Dose Admin Albuterol/ Ipratropium (Duoneb) 3 ml 1X ONCE 05/04/18 23:45 05/04/18 23:46 DC 05/04/18 23:56 3 ML Lorazepam (Ativan) 1 mg 1X ONCE 05/04/18 23:45 05/04/18 23:46 DC 05/05/18 00:09 1 MG Oxycodone HCl (Roxicodone) 10 mg 1X ONCE 05/05/18 01:15 05/05/18 01:16 DC 05/05/18 01:17 10 MG Allergies Allergies Allergies Coded Allergies Type Severity Reaction Last Updated Verified acetaminophen Allergy Intermediate TAKES NORCO AT HOME 01/29/18 Yes Physical Exam Physical Exam Constitutional: Well developed chronically ill-appearing HENT: Normocephalic, atraumatic, bilateral external ears normal, oropharynx moist, no oral exudates, nose normal. [] Eyes: PERRLA, EOMI, conjunctiva normal, no discharge. [] Neck: Normal range of motion, no tenderness, supple, no stridor. [] Cardiovascular:Heart rate regular rhythm, no murmur [] Lungs & Thorax: Patient has decreased breath sounds bilaterally some faint wheezing noted rib really speaking full sentences not really any significant distress Abdomen: Bowel sounds normal, soft, no tenderness, no masses, no pulsatile masses. [] Skin: Warm, dry, no erythema, no rash. [] Back: No tenderness, no CVA tenderness. [] Extremities: No tenderness, no cyanosis, no clubbing, ROM intact, 1+ edema Neurologic: Alert and oriented X 3, normal motor function, normal sensory function, no focal deficits noted. [] Psychologic: Affect normal, judgement normal, mood normal. [] Current Patient Data Vital Signs Vital Signs Date Time Temp Pulse Resp B/P (MAP) Pulse Ox O2 Delivery O2 Flow Rate FiO2 05/05/18 01:20 110 20 140/96 (111) 100 Nasal Cannula 3.0 05/04/18 22:57 98.8 98.8 Lab Values Laboratory Tests Test 05/05/18 00:00 05/05/18 01:18 White Blood Count 6.2 x10^3/uL (4.0-11.0) Red Blood Count 3.72 x10^6/uL (4.30-5.70) L Hemoglobin 11.4 g/dL (13.0-17.5) L Hematocrit 34.5 % (39.0-53.0) L Mean Corpuscular Volume 93 fL (79-100) Mean Corpuscular Hemoglobin 31 pg (25-35) Mean Corpuscular Hemoglobin Concent 33 g/dL (31-37) Red Cell Distribution Width 16.1 % (11.5-14.5) H Platelet Count 128 x10^3/uL (140-400) L Neutrophils (%) (Auto) 89 % (31-73) H Lymphocytes (%) (Auto) 4 % (24-48) L Monocytes (%) (Auto) 7 % (0-9) Eosinophils (%) (Auto) 0 % (0-3) Basophils (%) (Auto) 0 % (0-3) Neutrophils # (Auto) 5.5 x10^3uL (1.8-7.7) Lymphocytes # (Auto) 0.3 x10^3/uL (1.0-4.8) L Monocytes # (Auto) 0.4 x10^3/uL (0.0-1.1) Eosinophils # (Auto) 0.0 x10^3/uL (0.0-0.7) Basophils # (Auto) 0.0 x10^3/uL (0.0-0.2) Platelet Estimate Pending Sodium Level 141 mmol/L (136-145) Potassium Level 3.9 mmol/L (3.5-5.1) Chloride Level 102 mmol/L (98-107) Carbon Dioxide Level 33 mmol/L (21-32) H Anion Gap 6 (6-14) Blood Urea Nitrogen 16 mg/dL (8-26) Creatinine 0.8 mg/dL (0.7-1.3) Estimated GFR (Cockcroft-Gault) 120.1 BUN/Creatinine Ratio 20 (6-20) Glucose Level 252 mg/dL (70-99) H Calcium Level 9.1 mg/dL (8.5-10.1) Total Bilirubin 0.4 mg/dL (0.2-1.0) Aspartate Amino Transferase (AST) 22 U/L (15-37) Alanine Aminotransferase (ALT) 44 U/L (16-63) Alkaline Phosphatase 101 U/L (46-116) Troponin I Quantitative 0.023 ng/mL (0.000-0.055) Total Protein 6.2 g/dL (6.4-8.2) L Albumin 3.0 g/dL (3.4-5.0) L Albumin/Globulin Ratio 0.9 (1.0-1.7) L Influenza Type A Antigen Negative (NEGATIVE) Influenza Type B Antigen Negative (NEGATIVE) Laboratory Tests 05/05/18 00:00 Laboratory Tests 05/05/18 00:00 EKG EKG EKG shows a sinus tachycardia rate of 117 V2 is not interpretable but otherwise there is no obvious ST elevation CO.[] Radiology/Procedures Radiology/Procedures [] Impressions: Comparison study is dated 04/28/2018. The cardiac silhouette is normal in size. The thoracic aorta is tortuous. Patchy right lower lobe subsegmental atelectasis and/or infiltrate is noted. No pneumothorax or pleural effusion is seen. The osseous structures are unchanged. Impression: Patchy right lower lobe atelectasis and/or infiltrate. Electronically signed by: Herminio Cano MD (05/05/2018 2:14 AM) [facility] DICTATED and SIGNED BY: HERMINIO CANO MD DATE: 05/05/18 0214 Course & Med Decision Making Course & Med Decision Making Pertinent Labs and Imaging studies reviewed. (See chart for details) []Labs are basically stable in summary this is a 57-year-old male with history of end-stage COPD presenting with a possible mild exacerbation of his baseline symptoms. Noted the chest x-ray reading I did on my preliminary read feel that there may be a small lung nodule they're so I asked him to get a repeat x-ray with his primary once he is feeling better. In addition I asked him to take his azithromycin which he has at home on hand for infections. We gave him prednisone asked him to continue his albuterol and his mild tachycardia appears to be his usual baseline. He looked stable he was discharged in stable condition Dragon Disclaimer Dragon Disclaimer This electronic medical record was generated, in whole or in part, using a voice recognition dictation system. Departure Departure Impression: Primary Impression: COPD with exacerbation Disposition: HOME, SELF-CARE Condition: STABLE Referrals: UNKNOWN PCP NAME (PCP) Patient Instructions: Chronic Obstructive Pulmonary Disease Exacerbation, Easy- to-Read Additional Instructions: YOU APPEAR TO HAVE LUNG NODULE IN THE RIGHT LUNG. PLESAE FOLLOW UP WITH PRIMARY ABOUT THIS. Scripts Prednisone (PREDNISONE) 20 Mg Tablet 1 TAB PO DAILY, #5 TAB Prov: TEVIN GOODWIN MD 05/05/18 TEVIN GOODWIN MD May 05, 2018 02:41
[2018-05-05 05:26] LABS: % BANDS 4 % (0-9); % LYMPHS 4 % (24-48); % MONOS 3 % (0-10); % SEGS 89 % (35-66)
[2018-05-05 05:27] LABS: PLT ESTIMATE DECREASED (ADEQUATE)
--- NOTE | 2018-05-06 10:26 | EKG ---
[address] [place] [address] Test Date: 2018-05-05 Test Time: 00:16:54 Pat Name: KAYLA JONES Department: Room: Gender: M Management Trainer: : 1960 Requested By: TEVIN GOODWIN Order Number: [id number] Reading MD: Luis Manuel Thornton MD Measurements Intervals [place] Rate: 117 P: 64 [place]: 158 QRS: 8 QRSD: 84 T: 64 QT: 312 QTc: 439 Interpretive Statements SINUS TACHYCARDIA Electronically Signed On 05-06-2018 10:50:09 CDT by Luis Manuel Thornton MD
[2018-05-30] MEDS ORDERED: AMOX1TAB11 PO (16:45)
[2018-05-30] MEDS ORDERED: DOCU-109 PO (16:45)
[2018-05-30] MEDS ORDERED: ACET325T9 PO (16:45)
[2018-05-30] MEDS ORDERED: MAG30ORA2 PO (16:45)
[2018-05-30] MEDS ORDERED: GUAI100L12 PO (16:45)
== END 2018-05-05 01:49 | disposition home or self-care (01) ==
LOC: ER 22:49
DX: J44.1 Chronic obstructive pulmonary disease with (acute) exacerbation (principal); I11.0 Hypertensive heart disease with heart failure; I50.9 Heart failure, unspecified; E11.9 Type 2 diabetes mellitus without complications; Z88.6 Allergy status to analgesic agent
CPT/HCPCS: 36415; 71045; 80053; 84484; 85007; 85025; 87804; 93005; 94640; 96374; 99285; J2060; J7620

== ENCOUNTER 2018-05-10 17:08 | Emergency (ER) | payer MEDICARE, MEDICAID ==
[~2018-05-10] VITALS: Ht 180.3 cm; Wt 74.4 kg
--- NOTE | 2018-05-10 17:43 | PHYS DOC ---
Past Medical History Past Medical History: Bronchitis, CHF, COPD, Diabetes-Type II, Heart Disease, Hypertension Additional Past Medical Histor: EMPHYSEMA-on 3 L NC, (SD JON APRN) Past Surgical History: Other Additional Past Surgical Histo: HERNIA REPAIR (SD JON APRN) Alcohol Use: None Drug Use: None (SD JNO APRN) Adult General Chief Complaint Chief Complaint: SHORTNESS OF BREATH HPI HPI Patient is a 57 year old male with history of COPD, diabetes, hypertension, CHF , who presents to the ED today complaining of shortness of breath, patient states is chronic but got worse this afternoon when he was shopping at the grocery store. He states he had to increase his oxygen use from 3 L to 6 L while at the store. Patient denies any chest pain. Denies any fever. He states is a chronic cough from COPD. Patient is well known to this ED for COPD. (SD JON APRN) Review of Systems Review of Systems Constitutional: Denies fever or chills [] Eyes: Denies change in visual acuity, redness, or eye pain [] HENT: Denies nasal congestion or sore throat [] Respiratory: Reports cough and shortness of breath [] Cardiovascular: No additional information not addressed in HPI [] GI: Denies abdominal pain, nausea, vomiting, bloody stools or diarrhea [] : Denies dysuria or hematuria [] Musculoskeletal: Denies back pain or joint pain [] Integument: Denies rash or skin lesions [] Neurologic: Denies headache, focal weakness or sensory changes [] All other systems were reviewed and found to be within normal limits, except as documented in this note. (SD JON APRN) Current Medications Current Medications Current Medications Medications (Trade) Dose Ordered Sig/Candy Start Time Stop Time Status Last Admin Dose Admin Albuterol/ Ipratropium (Duoneb) 3 ml 1X ONCE 05/10/18 19:15 05/10/18 19:16 DC 05/10/18 19:12 3 ML Lorazepam (Ativan) 1 mg 1X ONCE 05/10/18 17:45 05/10/18 17:46 DC 05/10/18 17:57 1 MG Methylprednisolone Sodium Succinate (SOLU-Medrol 125MG VIAL) 125 mg 1X ONCE 05/10/18 17:45 05/10/18 17:46 DC 05/10/18 17:57 125 MG Oxycodone HCl (Roxicodone) 10 mg 1X ONCE 05/10/18 18:30 05/10/18 18:31 DC 05/10/18 18:29 10 MG (BONILLA JONES DO) Allergies Allergies Allergies Coded Allergies Type Severity Reaction Last Updated Verified acetaminophen Allergy Intermediate TAKES NORCO AT HOME 01/29/18 Yes (BONILLA JONES DO) Physical Exam Physical Exam Constitutional: Well developed, well nourished, no acute distress, non-toxic appearance. [] HENT: Normocephalic, atraumatic, bilateral external ears normal, oropharynx moist, no oral exudates, nose normal. [] Eyes: PERRLA, EOMI, conjunctiva normal, no discharge. [] Neck: Normal range of motion, no tenderness, supple, no stridor. [] Cardiovascular:Heart rate regular rhythm, no murmur [] Lungs & Thorax: Scattered wheezing throughout the lung bases. Patient appears to have increased work of breathing. Abdomen: Bowel sounds normal, soft, no tenderness, no masses, no pulsatile masses. [] Skin: Warm, dry, no erythema, no rash. [] Back: No tenderness, no CVA tenderness. [] Extremities: No tenderness, no cyanosis, no clubbing, ROM intact, no edema. [] Neurologic: Alert and oriented X 3, normal motor function, normal sensory function, no focal deficits noted. [] Psychologic: Affect normal, judgement normal, mood normal. [] (SD JON APRN) Current Patient Data Vital Signs Vital Signs Date Time Temp Pulse Resp B/P (MAP) Pulse Ox O2 Delivery O2 Flow Rate FiO2 05/10/18 19:12 Nasal Cannula 3.0 05/10/18 18:29 110 18 133/86 (102) 99 05/10/18 17:20 98.7 98.7 (BONILLA JONES DO) Lab Values Laboratory Tests Test 05/10/18 17:50 White Blood Count 7.0 x10^3/uL (4.0-11.0) Red Blood Count 3.68 x10^6/uL (4.30-5.70) L Hemoglobin 11.3 g/dL (13.0-17.5) L Hematocrit 33.8 % (39.0-53.0) L Mean Corpuscular Volume 92 fL (79-100) Mean Corpuscular Hemoglobin 31 pg (25-35) Mean Corpuscular Hemoglobin Concent 34 g/dL (31-37) Red Cell Distribution Width 15.6 % (11.5-14.5) H Platelet Count 133 x10^3/uL (140-400) L Neutrophils (%) (Auto) 93 % (31-73) H Lymphocytes (%) (Auto) 2 % (24-48) L Monocytes (%) (Auto) 4 % (0-9) Eosinophils (%) (Auto) 0 % (0-3) Basophils (%) (Auto) 1 % (0-3) Neutrophils # (Auto) 6.5 x10^3uL (1.8-7.7) Lymphocytes # (Auto) 0.2 x10^3/uL (1.0-4.8) L Monocytes # (Auto) 0.3 x10^3/uL (0.0-1.1) Eosinophils # (Auto) 0.0 x10^3/uL (0.0-0.7) Basophils # (Auto) 0.0 x10^3/uL (0.0-0.2) Segmented Neutrophils % 87 % (35-66) H Band Neutrophils % 4 % (0-9) Lymphocytes % 2 % (24-48) L Monocytes % 6 % (0-10) Metamyelocytes % 1 % (0-0) H Platelet Estimate Decreased (ADEQUATE) Sodium Level 138 mmol/L (136-145) Potassium Level 4.3 mmol/L (3.5-5.1) Chloride Level 96 mmol/L (98-107) L Carbon Dioxide Level 32 mmol/L (21-32) Anion Gap 10 (6-14) Blood Urea Nitrogen 16 mg/dL (8-26) Creatinine 1.3 mg/dL (0.7-1.3) Estimated GFR (Cockcroft-Gault) 68.6 BUN/Creatinine Ratio 12 (6-20) Glucose Level 364 mg/dL (70-99) H Calcium Level 8.7 mg/dL (8.5-10.1) Magnesium Level 1.9 mg/dL (1.8-2.4) Total Bilirubin 0.5 mg/dL (0.2-1.0) Aspartate Amino Transferase (AST) 17 U/L (15-37) Alanine Aminotransferase (ALT) 43 U/L (16-63) Alkaline Phosphatase 115 U/L (46-116) Troponin I Quantitative < 0.017 ng/mL (0.000-0.055) TA-Omy-Z-Type Natriuretic Peptide 34 pg/mL (0-124) Total Protein 6.1 g/dL (6.4-8.2) L Albumin 3.2 g/dL (3.4-5.0) L Albumin/Globulin Ratio 1.1 (1.0-1.7) Laboratory Tests 05/10/18 17:50 Laboratory Tests 05/10/18 17:50 (BONILLA JONES DO) Lab Values Laboratory Tests Test 05/10/18 17:50 White Blood Count 7.0 x10^3/uL (4.0-11.0) Red Blood Count 3.68 x10^6/uL (4.30-5.70) L Hemoglobin 11.3 g/dL (13.0-17.5) L Hematocrit 33.8 % (39.0-53.0) L Mean Corpuscular Volume 92 fL (79-100) Mean Corpuscular Hemoglobin 31 pg (25-35) Mean Corpuscular Hemoglobin Concent 34 g/dL (31-37) Red Cell Distribution Width 15.6 % (11.5-14.5) H Platelet Count 133 x10^3/uL (140-400) L Neutrophils (%) (Auto) 93 % (31-73) H Lymphocytes (%) (Auto) 2 % (24-48) L Monocytes (%) (Auto) 4 % (0-9) Eosinophils (%) (Auto) 0 % (0-3) Basophils (%) (Auto) 1 % (0-3) Neutrophils # (Auto) 6.5 x10^3uL (1.8-7.7) Lymphocytes # (Auto) 0.2 x10^3/uL (1.0-4.8) L Monocytes # (Auto) 0.3 x10^3/uL (0.0-1.1) Eosinophils # (Auto) 0.0 x10^3/uL (0.0-0.7) Basophils # (Auto) 0.0 x10^3/uL (0.0-0.2) Platelet Estimate Pending Sodium Level 138 mmol/L (136-145) Potassium Level 4.3 mmol/L (3.5-5.1) Chloride Level 96 mmol/L (98-107) L Carbon Dioxide Level 32 mmol/L (21-32) Anion Gap 10 (6-14) Blood Urea Nitrogen 16 mg/dL (8-26) Creatinine 1.3 mg/dL (0.7-1.3) Estimated GFR (Cockcroft-Gault) 68.6 BUN/Creatinine Ratio 12 (6-20) Glucose Level 364 mg/dL (70-99) H Calcium Level 8.7 mg/dL (8.5-10.1) Magnesium Level 1.9 mg/dL (1.8-2.4) Total Bilirubin 0.5 mg/dL (0.2-1.0) Aspartate Amino Transferase (AST) 17 U/L (15-37) Alanine Aminotransferase (ALT) 43 U/L (16-63) Alkaline Phosphatase 115 U/L (46-116) Troponin I Quantitative < 0.017 ng/mL (0.000-0.055) OC-Vuh-I-Type Natriuretic Peptide 34 pg/mL (0-124) Total Protein 6.1 g/dL (6.4-8.2) L Albumin 3.2 g/dL (3.4-5.0) L Albumin/Globulin Ratio 1.1 (1.0-1.7) Laboratory Tests 05/10/18 17:50 Laboratory Tests 05/10/18 17:50 (SD JON APRN) EKG EKG 17:[address] Montiel sinus tachycardia HR 116 no STEMI (SD JON APRN) Radiology/Procedures Radiology/Procedures []PROCEDURE: PORTABLE CHEST 1V EXAM: AP View of the chest DATE: 05/10/2018 5:54 PM INDICATION: SHORTNESS OF AIR. Hx COPD. COMPARISON: 05/05/2018 FINDINGS- IMPRESSION: The heart is top normal in size. The aorta is tortuous. Emphysematous changes of the left lung with bullous change and relative lack of lung markings the left apex, unchanged. Minimal patchy opacities in the right lung base has significantly improved with minimal residual, possibly residual atelectasis or consolidation. No pleural effusion or pneumothorax. Electronically signed by: Francisco Han MD (05/10/2018 6:43 PM) [facility] DICTATED and SIGNED BY: FRANCISCO HAN MD DATE: 05/10/181842 (SD JON APRN) Course & Med Decision Making Course & Med Decision Making Pertinent Labs and Imaging studies reviewed. (See chart for details) This is a 57-year-old male patient well known to this ED for COPD presenting today with shortness of breath, symptoms got worse this afternoon while at the grocery store shopping. Patient was given a DuoNeb treatment, Solu-Medrol, he states is feeling better, lungs have cleared up, O2 sats 98% on 3 L of oxygen which is his normal use of oxygen, he requested one more treatment before going home, breathing treatment was provided. Labs are negative, chest x-ray shows improving pneumonia. Patient states he is already on Levaquin. He states he has a couple more days to go. Encouraged him to continue taking Levaquin. Discharged with prednisone and albuterol inhaler. (SD JON APRN) Dragon Disclaimer Dragon Disclaimer This electronic medical record was generated, in whole or in part, using a voice recognition dictation system. (SD JON APRN) Departure Departure Impression: Primary Impression: COPD with exacerbation Disposition: HOME, SELF-CARE Condition: STABLE Referrals: UNKNOWN PCP NAME (PCP) Follow-up with your doctor in the course of next week Patient Instructions: Chronic Obstructive Pulmonary Disease Exacerbation, Easy- to-Read Additional Instructions: You were evaluated for COPD exacerbation, continue getting breathing treatments as prescribed by your doctor. Continue the Levaquin until completed. Take the pain medicine as needed. Follow-up with your doctor Sunday next week. Scripts Prednisone (PREDNISONE) 50 Mg Tablet 1 TAB PO DAILY, #5 TAB Prov: SD JON APRN 05/10/18 Albuterol Sulfate (VENTOLIN HFA INHALER) 18 Gm Hfa.aer.ad 2 PUFF INH Q4HRS for FOR ASTHMA, #1 INHALER 0 Refills Prov: SD JON APRN 05/10/18 Tramadol Hcl (TRAMADOL HCL) 50 Mg Tablet 50 MG PO Q6HRS PRN for PAIN, #30 TAB Prov: SD JON APRN 05/10/18 Attending Signature Attending Signature I have reviewed the PA/CRM ADMINISTRATOR's note and plan of care. I was available for consultation as needed during the patient's visit in the emergency department. I agree with the clinical impression, plan, and disposition. (BONILLA JONES DO) SD JON INSTITUTIONAL NUTRITION CONSULTANT May 10, 2018 17:43 BONILLA JONES DO May 11, 2018 02:20
[2018-05-10] MEDS ORDERED: IPRATRPIUM/ALBUTEROL 0.5/2.5MG 3 ML NEBU. NEB ONE ×2 (17:45→19:15)
[2018-05-10] MEDS ORDERED: methylPREDNISolone SOD SUCC PF 125 MG/2 ML VIAL. IV ONE (17:45)
[2018-05-10 18:10] LABS: BASO % 1 % (0-3); EOS % 0 % (0-3); HEMATOCRIT 33.8 % (39.0-53.0); HEMOGLOBIN 11.3 g/dL (13.0-17.5); LYMPH # 0.2 x10^3/uL (1.0-4.8); LYMPH % 2 % (24-48); MEAN CORPUSCULAR HEMOGLOBIN 31 pg (25-35); MEAN CORPUSCULAR HGB CONC 34 g/dL (31-37); MEAN CORPUSCULAR VOLUME 92 fL (79-100); MONO # 0.3 x10^3/uL (0.0-1.1); MONO % 4 % (0-9); NEUT # 6.5 x10^3uL (1.8-7.7); NEUT % 93 % (31-73); PLATELET COUNT 133 x10^3/uL (140-400); RED BLOOD COUNT 3.68 x10^6/uL (4.30-5.70); RED CELL DISTRIBUTION WIDTH 15.6 % (11.5-14.5)
[2018-05-10 18:15] LABS: CALCIUM 8.7 mg/dL (8.5-10.1); CREATININE 1.3 mg/dL (0.7-1.3); GFR 68.6; POTASSIUM 4.3 mmol/L (3.5-5.1)
[2018-05-10 18:21] LABS: ALBUMIN 3.2 g/dL (3.4-5.0); ALBUMIN/GLOBULIN RATIO 1.1 (1.0-1.7); MAGNESIUM 1.9 mg/dL (1.8-2.4); TOTAL BILIRUBIN 0.5 mg/dL (0.2-1.0); TOTAL PROTEIN 6.1 g/dL (6.4-8.2)
[2018-05-10 18:29] VITALS: BP 133/86
[2018-05-10] MEDS ORDERED: oxyCODONE IR 5 MG TABLET PO ONE (18:30)
--- NOTE | 2018-05-10 18:46 | RAD ---
EXAM: AP View of the chest DATE: 05/10/2018 5:54 PM INDICATION: SHORTNESS OF AIR. Hx COPD. COMPARISON: 05/05/2018 FINDINGS- IMPRESSION: The heart is top normal in size. The aorta is tortuous. Emphysematous changes of the left lung with bullous change and relative lack of lung markings the left apex, unchanged. Minimal patchy opacities in the right lung base has significantly improved with minimal residual, possibly residual atelectasis or consolidation. No pleural effusion or pneumothorax. Electronically signed by: Francisco Griggs MD (05/10/2018 6:43 PM) [facility]
[2018-05-10] MEDS ORDERED: PRED50TA PO (19:20)
[2018-05-10] MEDS ORDERED: VENTOLIN HFA18 GM INH (19:20)
[2018-05-10] MEDS ORDERED: TRAM50TA PO (19:20)
[2018-05-10 19:36] LABS: % BANDS 4 % (0-9); % LYMPHS 2 % (24-48); % METAS 1 % (0-0); % MONOS 6 % (0-10); % SEGS 87 % (35-66); PLT ESTIMATE DECREASED (ADEQUATE)
--- NOTE | 2018-05-11 09:21 | EKG ---
[facility] [address] [place] [address] Test Date: 2018-05-10 Test Time: 17:33:21 Pat Name: KAYLA JONES Department: Room: Gender: M Java Lead: : 1960 Requested By: SD JON Order Number: [id number] Reading MD: Luis Manuel Thornton MD Measurements Intervals [place] Rate: 115 P: 66 WV: 160 QRS: 55 QRSD: 82 T: 59 QT: 310 QTc: 430 Interpretive Statements SINUS TACHYCARDIA NON-SPECIFIC ST/T CHANGES Electronically Signed On 05-13-2018 14:26:10 CDT by Luis Manuel Thornton MD
[2018-05-30] MEDS ORDERED: AMOX1TAB11 PO (16:45)
[2018-05-30] MEDS ORDERED: ACET325T9 PO (16:45)
[2018-05-30] MEDS ORDERED: DOCU-109 PO (16:45)
[2018-05-30] MEDS ORDERED: GUAI100L12 PO (16:45)
[2018-05-30] MEDS ORDERED: MAG30ORA2 PO (16:45)
== END 2018-05-10 19:30 | disposition home or self-care (01) ==
LOC: ER 17:08
DX: J44.1 Chronic obstructive pulmonary disease with (acute) exacerbation (principal); I11.0 Hypertensive heart disease with heart failure; I50.9 Heart failure, unspecified; E11.9 Type 2 diabetes mellitus without complications; Z88.6 Allergy status to analgesic agent
CPT/HCPCS: 36415; 71045; 80053; 83735; 83880; 84484; 85007; 85025; 93005; 94640; 96374; 96375; 99284; J2060; J2930; J7620

== ENCOUNTER 2018-05-25 13:03 | Inpatient (IN) | payer MEDICARE, MEDICAID ==
[~2018-05-25] VITALS: Ht 180.3 cm; Wt 85.0 kg
[~2018-05-25 13:03] MED LIST changes: +VENTOLIN HFA18 GM INH
[2018-05-25] MEDS ORDERED: IV NORMAL SALINE 1000ML BAG 1,000 ML IV SCH (13:22)
[2018-05-25] MEDS ORDERED: methylPREDNISolone SOD SUCC PF 125 MG/2 ML VIAL. IV ONE (13:30)
[2018-05-25] MEDS ORDERED: IPRATRPIUM/ALBUTEROL 0.5/2.5MG 3 ML NEBU. NEB ONE (13:30)
[2018-05-25 13:36] LABS: BASO % 0 % (0-3); EOS % 0 % (0-3); HEMATOCRIT 36.6 % (39.0-53.0); LYMPH # 0.4 x10^3/uL (1.0-4.8); LYMPH % 5 % (24-48); MEAN CORPUSCULAR HEMOGLOBIN 30 pg (25-35); MEAN CORPUSCULAR HGB CONC 33 g/dL (31-37); MEAN CORPUSCULAR VOLUME 92 fL (79-100); MONO # 0.2 x10^3/uL (0.0-1.1); MONO % 3 % (0-9); NEUT # 7.3 x10^3uL (1.8-7.7); NEUT % 92 % (31-73); PLATELET COUNT 212 x10^3/uL (140-400); RED BLOOD COUNT 3.97 x10^6/uL (4.30-5.70); WHITE BLOOD COUNT 7.8 x10^3/uL (4.0-11.0)
[2018-05-25 13:46] LABS: CALCIUM 9.1 mg/dL (8.5-10.1); CREATININE 1.2 mg/dL (0.7-1.3); GFR 75.2; POTASSIUM 4.1 mmol/L (3.5-5.1)
--- NOTE | 2018-05-25 13:51 | RAD ---
AP chest. HISTORY: Short of air, history of pneumonia AP view was taken of the chest. Patient is rotated to the right. Left lung is lucent suggesting emphysema and chronic obstructive pulmonary disease. There are no confluent infiltrates. There is no effusion. The pattern is similar to the study from May 10. Heart is within normal limits without heart failure. IMPRESSION: 1. COPD. 2. No acute infiltrates. Electronically signed by: Tomer Rodríguez MD (05/25/2018 1:48 PM) [facility]
[2018-05-25 13:52] LABS: ALBUMIN 3.6 g/dL (3.4-5.0); TOTAL BILIRUBIN 0.7 mg/dL (0.2-1.0); TOTAL PROTEIN 7.1 g/dL (6.4-8.2)
[2018-05-25] MEDS ORDERED: cefTRIAXone IV Push 1 GM VIAL. IVP ONE (14:15)
[2018-05-25] MEDS ORDERED: IV NORMAL SALINE 1000ML BAG 1,000 ML IV ONE ×3 (14:15→15:30)
[2018-05-25] MEDS ORDERED: VANCOMYCIN 1GM IVPB FOR OMNI 250 ML IV ONE (14:15)
[2018-05-25] MEDS ORDERED: PIPERACILLIN/TAZOBACTAM 3.375 GM in IV NORMAL SALINE 50ML 50 ML IV ONE (14:15)
[2018-05-25] MEDS: IV NORMAL SALINE 1000ML BAG 1,000 ML IV SCH ×2 (14:21→21:01)
--- NOTE | 2018-05-25 14:21 | PHYS DOC ---
Past Medical History Past Medical History: Bronchitis, CHF, COPD, Heart Disease, Hypertension Additional Past Medical Histor: EMPHYSEMA-on 3 L NC, "prediabetes" Past Surgical History: Other Additional Past Surgical Histo: HERNIA REPAIR Additional Information: quit smoking 2013 Alcohol Use: None Drug Use: None Adult General Chief Complaint Chief Complaint: SHORTNESS OF BREATH HPI HPI Patient is a 57 year old male who presents with complaining of shortness of breath. Patient has history of COPD on 3 L of home oxygen and complaining of increasing chronic shortness of breath for the last 3 days that getting worse with exertion. Patient complaining of productive cough with green sputum without and chills, chest pain, sick contact, nausea and vomiting, sore throat and earache. Patient states he had to increase his home oxygen to 5 L to improve his shortness of breath. 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 Review of Systems Review of Systems Constitutional: Denies fever or chills [] Eyes: Denies change in visual acuity, redness, or eye pain [] HENT: Denies nasal congestion or sore throat [] Respiratory: Reports cough and shortness of breath Cardiovascular: No additional information not addressed in HPI [] GI: Denies abdominal pain, nausea, vomiting, bloody stools or diarrhea [] : Denies dysuria or hematuria [] Musculoskeletal: Denies back pain or joint pain [] Integument: Denies rash or skin lesions [] Neurologic: Denies headache, focal weakness or sensory changes [] Endocrine: Denies polyuria or polydipsia [] All other systems were reviewed and found to be within normal limits, except as documented in this note. Current Medications Current Medications Current Medications Medications (Trade) Dose Ordered Sig/Candy Start Time Stop Time Status Last Admin Dose Admin Albuterol/ Ipratropium (Duoneb) 3 ml 1X ONCE 05/25/18 13:30 05/25/18 13:31 DC Methylprednisolone Sodium Succinate (SOLU-Medrol 125MG VIAL) 125 mg 1X ONCE 05/25/18 13:30 05/25/18 13:31 DC 05/25/18 13:47 125 MG Sodium Chloride 1,000 ml @ 1,000 mls/hr Q1H 05/25/18 13:22 05/25/18 14:21 05/25/18 13:48 1,000 MLS/HR Allergies Allergies Allergies Coded Allergies Type Severity Reaction Last Updated Verified acetaminophen Allergy Intermediate TAKES NORCO AT HOME 01/29/18 Yes Physical Exam Physical Exam Constitutional: Well developed, well nourished, mild distress, non-toxic appearance. [] HENT: Normocephalic, atraumatic, oropharynx moist, no oral exudates, nose normal. [] Eyes: PERRLA, EOMI, conjunctiva normal, no discharge. [] Neck: Normal range of motion, no tenderness, supple, no stridor. [] Cardiovascular: Tachycardia, no murmur [] Lungs & Thorax: Mild respiratory distress with intercostal retraction, O2 sat of 94% on 3 L of oxygen, his air movement in right basilar lung. Abdomen: Bowel sounds normal, soft, no tenderness, no masses, no pulsatile masses. [] Skin: Warm, dry, no erythema, no rash. [] Back: No tenderness, no CVA tenderness. [] Extremities: No tenderness, no cyanosis, no clubbing, ROM intact, trace bilateral lower extremity edema. [] Neurologic: Alert and oriented X 3, normal motor function, normal sensory function, no focal deficits noted. [] Psychologic: Affect normal, judgement normal, mood normal. [] Current Patient Data Vital Signs Vital Signs Date Time Temp Pulse Resp B/P (MAP) Pulse Ox O2 Delivery O2 Flow Rate FiO2 05/25/18 13:10 98.2 119 24 142/103 (116) 98 Nasal Cannula 3.0 98.2 Lab Values Laboratory Tests Test 05/25/18 13:20 White Blood Count 7.8 x10^3/uL (4.0-11.0) Red Blood Count 3.97 x10^6/uL (4.30-5.70) L Hemoglobin 12.0 g/dL (13.0-17.5) L Hematocrit 36.6 % (39.0-53.0) L Mean Corpuscular Volume 92 fL (79-100) Mean Corpuscular Hemoglobin 30 pg (25-35) Mean Corpuscular Hemoglobin Concent 33 g/dL (31-37) Red Cell Distribution Width 16.0 % (11.5-14.5) H Platelet Count 212 x10^3/uL (140-400) Neutrophils (%) (Auto) 92 % (31-73) H Lymphocytes (%) (Auto) 5 % (24-48) L Monocytes (%) (Auto) 3 % (0-9) Eosinophils (%) (Auto) 0 % (0-3) Basophils (%) (Auto) 0 % (0-3) Neutrophils # (Auto) 7.3 x10^3uL (1.8-7.7) Lymphocytes # (Auto) 0.4 x10^3/uL (1.0-4.8) L Monocytes # (Auto) 0.2 x10^3/uL (0.0-1.1) Eosinophils # (Auto) 0.0 x10^3/uL (0.0-0.7) Basophils # (Auto) 0.0 x10^3/uL (0.0-0.2) Platelet Estimate Pending D-Dimer (Almita) 0.77 ug/mlFEU (0.00-0.50) H Sodium Level 141 mmol/L (136-145) Potassium Level 4.1 mmol/L (3.5-5.1) Chloride Level 100 mmol/L (98-107) Carbon Dioxide Level 32 mmol/L (21-32) Anion Gap 9 (6-14) Blood Urea Nitrogen 14 mg/dL (8-26) Creatinine 1.2 mg/dL (0.7-1.3) Estimated GFR (Cockcroft-Gault) 75.2 BUN/Creatinine Ratio 12 (6-20) Glucose Level 153 mg/dL (70-99) H Calcium Level 9.1 mg/dL (8.5-10.1) Total Bilirubin Pending Aspartate Amino Transferase (AST) Pending Alanine Aminotransferase (ALT) Pending Alkaline Phosphatase Pending Creatine Kinase Pending Total Protein Pending Albumin Pending Albumin/Globulin Ratio Pending Laboratory Tests 05/25/18 13:20 Laboratory Tests 05/25/18 13:20 EKG EKG EKG interpreted by me. EKG at 1815 showed sinus tachycardia at rate of 114, otherwise unremarkable EKG. Radiology/Procedures Radiology/Procedures [facility] [address] [place] [address] IMAGING REPORT Signed PATIENT: KAYLA JONES ACCOUNT: [id number] : 1960 LOCATION: ER AGE: 57 SEX: M EXAM STATUS: PRE ER ORD. PHYSICIAN: ZOIE CHARLES MD REASON: shortness of breath PROCEDURE: PORTABLE CHEST 1V AP chest. HISTORY: Short of air, history of pneumonia AP view was taken of the chest. Patient is rotated to the right. Left lung is lucent suggesting emphysema and chronic obstructive pulmonary disease. There are no confluent infiltrates. There is no effusion. The pattern is similar to the study from May 10. Heart is within normal limits without heart failure. IMPRESSION: 1. COPD. 2. No acute infiltrates. Electronically signed by: Tomer Rodríguez MD (05/25/2018 1:48 PM) [facility] DICTATED and SIGNED BY: TOMER RODRÍGUEZ MD DATE: 05/25/18 134 Course & Med Decision Making Course & Med Decision Making Pertinent Labs and Imaging studies reviewed. (See chart for details) Evaluation of patient in ER showed 57-year-old male patient history of COPD on home oxygen complaining of increasing shortness of breath with productive cough for 3 days. Patient had tachycardia without hypertension or fever or confusion. EKG, chest x-ray and labs was unremarkable except for lactic acid of 4.2. Patient treated with IV fluid, DuoNeb, Solu-Medrol, antibiotic after obtaining blood culture Patient requiring admission for further evaluation and treatment. Discussed with who is in agreement with admission. Discussed findings and plan with patient and family, who acknowledge understanding and agreement. Dragon Disclaimer Dragon Disclaimer This electronic medical record was generated, in whole or in part, using a voice recognition dictation system. Departure Departure Impression: Primary Impression: Severe sepsis Additional Impression: COPD exacerbation Disposition: ADMITTED INPATIENT (at 1417) Admitting Physician: Lico Pressley (accepted admission at 1416) Condition: GUARDED Referrals: UNKNOWN PCP NAME (PCP) Problem Qualifiers ZOIE CHARLES MD May 25, 2018 14:21
--- NOTE | 2018-05-25 14:39 | EKG ---
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
[2018-05-25 14:54] LABS: % BANDS 1 % (0-9); % LYMPHS 7 % (24-48); % MONOS 1 % (0-10); % SEGS 91 % (35-66); ANISOCYTOSIS SLIGHT; NUCLEATED RBC 2; PLT ESTIMATE ADEQUATE (ADEQUATE)
--- NOTE | 2018-05-25 15:16 | PDOC1 ---
History and Physical Date of Admission Date of Admission DATE: 05/25/18 TIME: 15:08 Identification/Chief Complaint Chief Complaint SEEN IN ER WITH increasing chronic shortness of breath for the last 3 days that getting worse with exertion. Patient complaining of productive cough with green sputum without and chills, chest pain, sick contact, nausea and vomiting, sore throat and earache. Patient states he had to increase his home oxygen to 5 L to improve his shortness of breath. Patient had O2 sat of 80s at arrival to ER , dark sputum, feels like he cannot catch his breath Past Medical History Past Medical History Past Medical History Past Medical History Past Medical History: Bronchitis, CHF, COPD, Heart Disease, Hypertension Additional Past Medical Histor: EMPHYSEMA-on 3 L NC, "prediabetes" Past Surgical History: Other Additional Past Surgical Histo: HERNIA REPAIR Additional Information: quit smoking 2013 Alcohol Use: None Drug Use: None family hx copd Cardiovascular: CHF, HTN, Hyperlipidemia Pulmonary: Asthma, COPD, Pneumonia CENTRAL NERVOUS SYSTEM: Other GI: GERD Heme/Onc: No pertinent hx Hepatobiliary: No pertinent hx Psych: No pertinent hx Musculoskeletal: low back pain, Osteoarthritis Rheumatologic: No pertinent hx Infectious disease: No pertinent hx Renal/: No pertinent hx Endocrine: Diabetes Past Surgical History Past Surgical History: Hernia Repair Family History Family History: Heart Disease, Hypertension Social History Smoke: Quit ALCOHOL: none Drugs: None Current Problem List Problem List Problems Medical Problems: (1) COPD exacerbation Status: Acute (2) Severe sepsis Status: Acute Current Medications Current Medications Current Medications Sodium Chloride 1,000 ml @ 1,000 mls/hr Q1H IV Last administered on 05/25/18at 13:48; Start 05/25/18 at 13:22; Stop 05/25/18 at 14:21; Status DC Albuterol/ Ipratropium (Duoneb) 3 ml 1X ONCE NEB Last administered on at 13:57; Start 05/25/18 at 13:30; Stop 05/25/18 at 13:31; Status DC Methylprednisolone Sodium Succinate (SOLU-Medrol 125MG VIAL) 125 mg 1X ONCE IV Last administered on 05/25/18at 13:47; Start 05/25/18 at 13:30; Stop 05/25/18 at 13:31; Status DC Ceftriaxone Sodium (Rocephin) 1 gm 1X ONCE IVP ; Start 05/25/18 at 14:15; Stop 05/25/18 at 14:15; Status DC Piperacillin Sod/ Tazobactam Sod 3.375 gm/Sodium Chloride 50 ml @ 100 mls/hr 1X ONCE IV Last administered on 05/25/18at 15:02; Start 05/25/18 at 14:15; Stop 05/25/18 at 14:44; Status DC Vancomycin HCl 250 ml @ 250 mls/hr 1X ONCE IV ; Start 05/25/18 at 14:15; Stop 05/25/18 at 15:14 Sodium Chloride 1,000 ml @ 1,000 mls/hr 1X ONCE IV ; Start 05/25/18 at 14:15; Stop 05/25/18 at 15:14 Sodium Chloride 1,000 ml @ 1,000 mls/hr 1X ONCE IV ; Start 05/25/18 at 14:15; Stop 05/25/18 at 15:14 Sodium Chloride 1,000 ml @ 150 mls/hr Q6H40M IV ; Start 05/25/18 at 14:21; Stop 05/26/18 at 14:20 Active Scripts Active Prednisone 50 Mg Tablet 1 Tab PO DAILY Ventolin Hfa Inhaler (Albuterol Sulfate) 18 Gm Hfa.aer.ad 2 Puff INH Q4HRS Tramadol Hcl 50 Mg Tablet 50 Mg PO Q6HRS PRN Prednisone 20 Mg Tablet 1 Tab PO DAILY Tramadol Hcl 50 Mg Tablet 50-100 Mg PO PRN Q6HRS PRN 6 Days Doxycycline Hyclate 100 Mg Capsule 1 Cap PO BID Medrol (Methylprednisolone) 4 Mg Tab.ds.pk 1 Pkg PO UD Tizanidine Hcl 4 Mg Capsule 4 Mg PO QID PRN 10 Days Mobic (Meloxicam) 7.5 Mg Tablet 1-2 Tab PO DAILY 5 Days Cyclobenzaprine Hcl 5 Mg Tablet 5 Mg PO PRN TID PRN Prednisone 50 Mg Tablet 1 Tab PO DAILY Reglan (Metoclopramide Hcl) 10 Mg Tablet 0.5 Tab PO QID 30 Days Xanax (Alprazolam) 0.5 Mg Tablet 1 Tab PO BID Prednisone 20 Mg Tablet 40 Mg PO DAILY Furosemide 20 Mg Tablet 1 Tab PO DAILY Albuterol Sulfate Neb Soln (Albuterol Sulfate) 2.5 Mg/3 Ml Vial.neb 1 Vial NEB PRN Q4HRS Reported Erythromycin (Erythromycin Base) 250 Mg Tablet 250 Mg PO DAILY Vitamin D3 (Cholecalciferol (Vitamin D3)) 5,000 Unit Tablet 5,000 Unit PO DAILY Potassium Chloride 20 Meq Tablet.er 20 Meq PO DAILY Protonix (Pantoprazole Sodium) 20 Mg Tablet.dr 1 Tab PO DAILY Flonase Allergy Relief (Fluticasone Propionate) 9.9 Ml [place].susp 2 Sprays NS DAILY Atorvastatin Calcium 10 Mg Tablet 10 Mg PO HS Symbicort 160-4.5 Mcg Inhaler (Budesonide/Formoterol Fumarate) 10.2 Gm Hfa.aer.ad 2 Puff IH BID Spiriva (Tiotropium [place]) 18 Mcg Cap.w.dev 2 Inh IH DAILY Allergies Allergies: Coded Allergies: acetaminophen (Verified Allergy, Intermediate, TAKES NORCO AT HOME, ) ROS Review of System Review of Systems Review of Systems Constitutional: Denies fever or chills [] Eyes: Denies change in visual acuity, redness, or eye pain [] HENT: Denies nasal congestion or sore throat [] Respiratory: Reports cough and shortness of breath Cardiovascular: No additional information not addressed in HPI [] GI: Denies abdominal pain, nausea, vomiting, bloody stools or diarrhea [] : Denies dysuria or hematuria [] Musculoskeletal: Denies back pain or joint pain [] Integument: Denies rash or skin lesions [] Neurologic: Denies headache, focal weakness or sensory changes [] Endocrine: Denies polyuria or polydipsia [] 14 PT systems were reviewed and found to be within normal limits, except as documented General: YES: Fatigue PSYCHOLOGICAL ROS: YES: Anxiety Respiratory: YES: Cough, Shortness of breath, SOB with excertion, Sputum Changes Gastrointestinal: No Nausea, No Vomiting, No Abdominal Pain, No Diarrhea, No Constipation, No Melena, No Hematochezia, No Other Musculoskeletal: Yes Joint Stiffness Physical Exam Physical Exam Physical Exam Physical Exam Constitutional: Well developed, well nourished, mild distress, non-toxic appearance. [] HENT: Normocephalic, atraumatic, oropharynx moist, no oral exudates, nose normal. [] Eyes: PERRLA, EOMI, conjunctiva normal, no discharge. [] Neck: Normal range of motion, no tenderness, supple, no stridor. [] Cardiovascular: Tachycardia, no murmur [] Lungs & Thorax: Mild respiratory distress with intercostal retraction, O2 sat of 94% on 3 L of oxygen, his air movement in right basilar lung. Abdomen: Bowel sounds normal, soft, no tenderness, no masses, no pulsatile masses. [] Skin: Warm, dry, no erythema, no rash. [] Back: No tenderness, no CVA tenderness. [] Extremities: No tenderness, no cyanosis, no clubbing, ROM intact, trace bilateral lower extremity edema. [] Neurologic: Alert and oriented X 3, normal motor function, normal sensory function, no focal deficits noted. [] Psychologic: Affect normal, judgement normal, mood normal. [] General: Oriented X3, Cooperative, mild distress HEENT: Atraumatic, PERRLA Lungs: Other (diminished bs few rhonchi) Heart: RRR, no thrills Breasts: Not examined Rectal Exam: not examined Neuro: Normal speech, Sensation intact, Cranial nerves 3-12 NL Psych/Mental Status: Mental status NL, Mood NL Vitals Vitals Vital Signs Date Time Temp Pulse Resp B/P (MAP) Pulse Ox O2 Delivery O2 Flow Rate FiO2 05/25/18 13:57 98 Nasal Cannula 3.0 05/25/18 13:10 98.2 119 24 142/103 (116) 98.2 Labs Labs Laboratory Tests Test 05/25/18 13:20 White Blood Count 7.8 x10^3/uL (4.0-11.0) Red Blood Count 3.97 x10^6/uL (4.30-5.70) Hemoglobin 12.0 g/dL (13.0-17.5) Hematocrit 36.6 % (39.0-53.0) Mean Corpuscular Volume 92 fL (79-100) Mean Corpuscular Hemoglobin 30 pg (25-35) Mean Corpuscular Hemoglobin Concent 33 g/dL (31-37) Red Cell Distribution Width 16.0 % (11.5-14.5) Platelet Count 212 x10^3/uL (140-400) Neutrophils (%) (Auto) 92 % (31-73) Lymphocytes (%) (Auto) 5 % (24-48) Monocytes (%) (Auto) 3 % (0-9) Eosinophils (%) (Auto) 0 % (0-3) Basophils (%) (Auto) 0 % (0-3) Neutrophils # (Auto) 7.3 x10^3uL (1.8-7.7) Lymphocytes # (Auto) 0.4 x10^3/uL (1.0-4.8) Monocytes # (Auto) 0.2 x10^3/uL (0.0-1.1) Eosinophils # (Auto) 0.0 x10^3/uL (0.0-0.7) Basophils # (Auto) 0.0 x10^3/uL (0.0-0.2) Segmented Neutrophils % 91 % (35-66) Band Neutrophils % 1 % (0-9) Lymphocytes % 7 % (24-48) Monocytes % 1 % (0-10) Nucleated Red Blood Cells 2 Platelet Estimate Adequate (ADEQUATE) Anisocytosis Slight D-Dimer (Almita) 0.77 ug/mlFEU (0.00-0.50) Sodium Level 141 mmol/L (136-145) Potassium Level 4.1 mmol/L (3.5-5.1) Chloride Level 100 mmol/L (98-107) Carbon Dioxide Level 32 mmol/L (21-32) Anion Gap 9 (6-14) Blood Urea Nitrogen 14 mg/dL (8-26) Creatinine 1.2 mg/dL (0.7-1.3) Estimated GFR (Cockcroft-Gault) 75.2 BUN/Creatinine Ratio 12 (6-20) Glucose Level 153 mg/dL (70-99) Lactic Acid Level 4.4 mmol/L (0.4-2.0) Calcium Level 9.1 mg/dL (8.5-10.1) Total Bilirubin 0.7 mg/dL (0.2-1.0) Aspartate Amino Transf (AST/SGOT) 22 U/L (15-37) Alanine Aminotransferase (ALT/SGPT) 37 U/L (16-63) Alkaline Phosphatase 116 U/L (46-116) Creatine Kinase 140 U/L (39-308) Troponin I Quantitative 0.026 ng/mL (0.000-0.055) BH-Quf-F-Type Natriuretic Peptide 198 pg/mL (0-124) Total Protein 7.1 g/dL (6.4-8.2) Albumin 3.6 g/dL (3.4-5.0) Albumin/Globulin Ratio 1.0 (1.0-1.7) Laboratory Tests Test 05/25/18 13:20 White Blood Count 7.8 x10^3/uL (4.0-11.0) Red Blood Count 3.97 x10^6/uL (4.30-5.70) Hemoglobin 12.0 g/dL (13.0-17.5) Hematocrit 36.6 % (39.0-53.0) Mean Corpuscular Volume 92 fL (79-100) Mean Corpuscular Hemoglobin 30 pg (25-35) Mean Corpuscular Hemoglobin Concent 33 g/dL (31-37) Red Cell Distribution Width 16.0 % (11.5-14.5) Platelet Count 212 x10^3/uL (140-400) Neutrophils (%) (Auto) 92 % (31-73) Lymphocytes (%) (Auto) 5 % (24-48) Monocytes (%) (Auto) 3 % (0-9) Eosinophils (%) (Auto) 0 % (0-3) Basophils (%) (Auto) 0 % (0-3) Neutrophils # (Auto) 7.3 x10^3uL (1.8-7.7) Lymphocytes # (Auto) 0.4 x10^3/uL (1.0-4.8) Monocytes # (Auto) 0.2 x10^3/uL (0.0-1.1) Eosinophils # (Auto) 0.0 x10^3/uL (0.0-0.7) Basophils # (Auto) 0.0 x10^3/uL (0.0-0.2) Segmented Neutrophils % 91 % (35-66) Band Neutrophils % 1 % (0-9) Lymphocytes % 7 % (24-48) Monocytes % 1 % (0-10) Nucleated Red Blood Cells 2 Platelet Estimate Adequate (ADEQUATE) Anisocytosis Slight D-Dimer ([place]) 0.77 ug/mlFEU (0.00-0.50) Sodium Level 141 mmol/L (136-145) Potassium Level 4.1 mmol/L (3.5-5.1) Chloride Level 100 mmol/L (98-107) Carbon Dioxide Level 32 mmol/L (21-32) Anion Gap 9 (6-14) Blood Urea Nitrogen 14 mg/dL (8-26) Creatinine 1.2 mg/dL (0.7-1.3) Estimated GFR (Cockcroft-Gault) 75.2 BUN/Creatinine Ratio 12 (6-20) Glucose Level 153 mg/dL (70-99) Lactic Acid Level 4.4 mmol/L (0.4-2.0) Calcium Level 9.1 mg/dL (8.5-10.1) Total Bilirubin 0.7 mg/dL (0.2-1.0) Aspartate Amino Transf (AST/SGOT) 22 U/L (15-37) Alanine Aminotransferase (ALT/SGPT) 37 U/L (16-63) Alkaline Phosphatase 116 U/L (46-116) Creatine Kinase 140 U/L (39-308) Troponin I Quantitative 0.026 ng/mL (0.000-0.055) JH-Raq-S-Type Natriuretic Peptide 198 pg/mL (0-124) Total Protein 7.1 g/dL (6.4-8.2) Albumin 3.6 g/dL (3.4-5.0) Albumin/Globulin Ratio 1.0 (1.0-1.7) Images Images LEFT VENTRICLE The left ventricle is normal size. There is normal left ventricular wall thickness. Left ventricle systolic function is low normal. The Ejection Fraction is 50%. There is normal LV segmental wall motion. Transmitral Doppler flow pattern is Grade II-pseudonormal filling dynamics. RIGHT VENTRICLE The right ventricle is normal size. The right ventricular systolic function is normal. ATRIA The left atrium size is normal. The right atrium size is normal. The interatrial septum is intact with no evidence for an atrial septal defect or patent foramen ovale as noted on 2-D or Doppler imaging. AORTIC VALVE The aortic valve is calcified but opens well. Doppler and Color Flow revealed no significant aortic regurgitation. There is no significant aortic valvular stenosis. MITRAL VALVE The mitral valve is calcified but opens well. There is no evidence of mitral valve prolapse. There is no mitral valve stenosis. Doppler and Color Flow revealed no mitral valve regurgitation noted. TRICUSPID VALVE The tricuspid valve is normal in structure and function. Doppler and Color Flow revealed no tricuspid valve regurgitation noted. There is no tricuspid valve stenosis. PULMONIC VALVE The pulmonic valve is not well visualized. Doppler and Color Flow revealed trace pulmonic valvular regurgitation. There is no pulmonic valvular stenosis. GREAT VESSELS The aortic root is normal in size. The ascending aorta is not well seen. The IVC is normal in size and collapses >50% with inspiration. PERICARDIAL EFFUSION There is no evidence of significant pericardial effusion. Critical Notification Critical Value: No <Conclusion> Left ventricle systolic function is low normal. The Ejection Fraction is 50%. Transmitral Doppler flow pattern is Grade II-pseudonormal filling dynamics. The left atrium size is normal. The right atrium size is normal. The aortic valve is calcified but opens well. The mitral valve is calcified but opens well. Doppler and Color Flow revealed no mitral valve regurgitation noted. The tricuspid valve is normal in structure and function. The pulmonic valve is not well visualized. There is no evidence of significant pericardial effusion. Signed by : Luke Palomares MD Electronically Approved : 01/18/2018 17:19:09 Comparison made to 01/13/2018. CLINICAL INDICATION: Dyspnea. Possible pulmonary embolus. TECHNIQUE: Per contiguous axial imaging of the chest performed following the intravenous administration of 90 cc Omnipaque 350. Study was performed as dedicated PE protocol with thin cut coronal MIPS 3-D reconstruction. One or more of the following individualized dose reduction techniques were utilized for this examination: 1. Automated exposure control 2. Adjustment of the mA and/or kV according to patient size 3. Use of iterative reconstruction technique. FINDINGS: Study is limited due to motion artifact. Contrast bolus is adequate. There is no evidence of central, lobar or proximal segmental pulmonary embolus. The distal segmental and subsegmental branches are not well evaluated based on technique. Heart size is within normal limits. No significant pericardial effusion. Coronary artery calcifications. No mediastinal, hilar or axillary lymphadenopathy. Thyroid gland unremarkable. Central airways are patent. Severe upper zone emphysema with large bulla at the left apex, unchanged. There is mild patchy groundglass opacity throughout both lungs with reticular nodular densities along the bronchovascular bundle of the lower lobes, similar to slightly improved. No pleural effusion. No pneumothorax. Limited images of the upper abdomen unremarkable. No significant bony abnormality. Multilevel spondylosis. IMPRESSION: 1. Limited exam due to motion artifact. No evidence of central, lobar or proximal segmental pulmonary embolus. The distal segmental and subsegmental branches are not well evaluated. 2. Severe emphysema with large bulla at the left apex, unchanged. 3. Patchy groundglass opacity throughout both lungs with some increasing reticulonodular opacity along the bronchovascular bundles of the lower lobes. Consider infectious or inflammatory processes or chronic aspiration. 4. Coronary artery calcifications. Electronically signed by: Mikael Torres MD (03/15/2018 3:31 PM) [id number] CLINICAL INDICATION: Dysphagia COMPARISON: None. TECHNIQUE: The patient was given effervescent granules and thick consistency barium and subsequently thin consistency barium and images of the esophagus and stomach were obtained under fluoroscopic guidance. FINDINGS: Swallowing is normal resulting in no aspiration of contrast. The esophagus is normal in caliber. Esophageal motility is mildly delayed although there is normal gastric emptying. No definite tertiary contractions are identified. The mucosa of the esophagus was limited in evaluation as the patient was unable to tolerate effervescent granules however within these limitations, no discrete mucosal abnormalities were identified. Visualized portions of the proximal stomach are unremarkable. There is gastroesophageal reflux to level of the upper- mid thoracic esophagus. IMPRESSION: 1. Gastroesophageal reflux to the level of the upper-mid thoracic esophagus. 2. Slightly delayed esophageal motility although no tertiary contractions were identified. Electronically signed by: Francisco Griggs MD (02/13/2018 11:54 AM) [facility] STATUS: PRE ER ORD. PHYSICIAN: ZOIE CHARLES MD REASON: shortness of breath PROCEDURE: PORTABLE CHEST 1V AP chest. HISTORY: Short of air, history of pneumonia AP view was taken of the chest. Patient is rotated to the right. Left lung is lucent suggesting emphysema and chronic obstructive pulmonary disease. There are no confluent infiltrates. There is no effusion. The pattern is similar to the study from May 10. Heart is within normal limits without heart failure. IMPRESSION: 1. COPD. 2. No acute infiltrates. Electronically signed by: Tomer Rodríguez MD (05/25/2018 1:48 PM) [facility] DICTATED and SIGNED BY: TOMER RODRÍGUEZ MD DATE: 05/25/18 1348 VTE Prophylaxis Ordered VTE Prophylaxis Devices: Yes VTE Pharmacological Prophylaxi: Yes Assessment/Plan Assessment/Plan impression/ plan Acute on chronic respiratory failure - will give steroids, qid nebs Left ventricle systolic function is low normal. The Ejection Fraction is 50%. Transmitral Doppler flow pattern is Grade II-pseudonormal filling dynamics. The left atrium size is normal. COPD with exacerbation and acute bronchitis - iv doxycycline, consult pulm. Needs bullectomy consideration at [facility] as has previously been discussed Severe emphysema with large bulla at the left apex, recent ct Patchy groundglass opacity throughout both lungs with some increasing reticulonodular opacity along the bronchovascular bundles of the lower lobes. Consider infectious or inflammatory processes or chronic aspiration. Dysphagia with prior history of Rosanne esophagitis - hypertension CHF chronic combined, EF 50% acute exacerbation, GERD - cont PPI1. reflux to the level of the upper-mid thoracic esophagus. Anemia - of chronic disease. Avoid nephrotoxic meds, IVF CHRONIC HYPERCAPNIC RESP FAILURE Lactic acidosis sec volume depletion plan blood cult pulm consult duonebs qid o2 support iv doxycycline 100mg bid dvt prophylaxis HOB AT 30 DEGREES to avoid reflux FOLLOW LACTIC ACID TELE ECHO abg 73 MIN PT EXAM, CHART REVIEW,> 50% OF time spent with exam, chart review, pt care coordination TOMAS BAIG MD May 25, 2018 15:15
[2018-05-25] MEDS ORDERED: TIZANIDINE HCL 4 MG PO PRN (15:30)
[2018-05-25] MEDS ORDERED: ALBUTEROL SULFATE 2.5 MG/3 ML NEBU. NEB PRN (15:30)
[2018-05-25 15:39] VITALS: BP 130/91
[2018-05-25] MEDS ORDERED: DOCUSATE SODIUM 100 MG CAPSULE. PO PRN (15:45)
[2018-05-25] MEDS ORDERED: LORazepam 0.5 MG TABLET PO PRN (15:45)
[2018-05-25] MEDS ORDERED: 0.9 % SODIUM CHLORIDE 3ML DISP.SYRIN. IV PRN (15:45)
[2018-05-25] MEDS ORDERED: ZOLPIDEM 5 MG TABLET. PO PRN (15:45)
[2018-05-25] MEDS ORDERED: guaiFENesin ORAL 200 MG/10 ML LIQUID. PO PRN (15:45)
[2018-05-25] MEDS ORDERED: ACETAMINOPHEN 325 MG TABLET. PO PRN (15:45)
[2018-05-25] MEDS ORDERED: MAG HYDROX/ALUMINUM HYD/SIMETH 30 ML ORAL.SUSP PO PRN (15:45)
[2018-05-25] MEDS ORDERED: cloNIDine HCL 0.1 MG TABLET PO PRN (15:45)
[2018-05-25] MEDS ORDERED: ONDANSETRON PF 4 MG/2 ML VIAL. IV PRN (15:45)
[2018-05-25 18:13] LABS: BILIRUBIN,URINE NEGATIVE (NEG); CLARITY,URINE CLEAR; COLOR,URINE YELLOW; NITRITE,URINE NEGATIVE (NEG); PH,URINE 6.5; PROTEIN,URINE NEGATIVE (NEG-TRACE)
[2018-05-25 18:20] LABS: AMPHETAMINE/METHAMPHETAMINE NEG (NEG); BARBITURATES NEG (NEG); BENZODIAZEPINES NEG (NEG); CANNABINOIDS NEG (NEG); COCAINE NEG (NEG); METHADONE NEG (NEG); OPIATES NEG (NEG); PHENCYCLIDINE NEG (NEG)
[2018-05-25] MEDS: DOXYCYCLINE HYCLATE 100 MG in IV DEXTROSE 5% 100ML 100 ML IV SCH (18:21)
[2018-05-25] MEDS: METOCLOPRAMIDE 10 MG TABLET. PO SCH ×2 (18:21→20:42)
[2018-05-25] MEDS: ENOXAPARIN 40 MG/0.4 ML SYRINGE. SQ SCH (18:21)
[2018-05-25 18:26] LABS: HYALINE CASTS, URINE MODERATE /HPF; SQUAMOUS EPITHELIAL CELL,UR FEW /LPF
[2018-05-25 18:27] LABS: BACTERIA,URINE 0 /HPF (0-FEW); WBC,URINE OCC /HPF (0-4)
[2018-05-25 19:38] VITALS: BP 130/88
[2018-05-25] MEDS: ALBUTEROL SULFATE 2.5 MG/3 ML NEBU. NEB SCH ×2 (20:00→23:44)
[2018-05-25] MEDS: ALPRAZolam 0.5 MG TABLET PO SCH (20:42)
[2018-05-25] MEDS: ATORVASTATIN CALCIUM 10 MG TABLET. PO SCH (20:42)
[2018-05-25] MEDS: BUDESONIDE 0.5 MG/2 ML NEBU. NEB SCH (20:45)
[2018-05-25 23:34] VITALS: BP 124/83
[2018-05-26 03:28] VITALS: BP 126/90
[2018-05-26] MEDS: IV NORMAL SALINE 1000ML BAG 1,000 ML IV SCH ×2 (03:41→17:58)
[2018-05-26] MEDS: ALBUTEROL SULFATE 2.5 MG/3 ML NEBU. NEB SCH ×6 (04:20→23:39)
[2018-05-26 07:00] VITALS: BP 128/85
[2018-05-26] MEDS: BUDESONIDE 0.5 MG/2 ML NEBU. NEB SCH ×2 (07:23→20:22)
[2018-05-26 08:10] LABS: BASO % 0 % (0-3); EOS % 0 % (0-3); HEMATOCRIT 32.4 % (39.0-53.0); HEMOGLOBIN 10.7 g/dL (13.0-17.5); LYMPH # 0.4 x10^3/uL (1.0-4.8); LYMPH % 5 % (24-48); MEAN CORPUSCULAR HEMOGLOBIN 30 pg (25-35); MEAN CORPUSCULAR HGB CONC 33 g/dL (31-37); MEAN CORPUSCULAR VOLUME 91 fL (79-100); MONO # 0.5 x10^3/uL (0.0-1.1); MONO % 7 % (0-9); NEUT # 6.6 x10^3uL (1.8-7.7); NEUT % 88 % (31-73); PLATELET COUNT 166 x10^3/uL (140-400); RED BLOOD COUNT 3.57 x10^6/uL (4.30-5.70); RED CELL DISTRIBUTION WIDTH 15.9 % (11.5-14.5); WHITE BLOOD COUNT 7.5 x10^3/uL (4.0-11.0)
[2018-05-26 08:25] LABS: CALCIUM 8.4 mg/dL (8.5-10.1); CREATININE 0.9 mg/dL (0.7-1.3); GFR 104.9; POTASSIUM 4.2 mmol/L (3.5-5.1); TOTAL BILIRUBIN 0.5 mg/dL (0.2-1.0); TOTAL PROTEIN 5.9 g/dL (6.4-8.2)
--- NOTE | 2018-05-26 08:29 | PDOC ---
Provider Note Provider Note [id number] acute on chronic resp fail ae of copd acute bronchitis sepsis see orders TAMAR RING MD May 26, 2018 08:29
[2018-05-26] MEDS ORDERED: ENOXAPARIN 40 MG/0.4 ML SYRINGE. SQ SCH (08:30)
[2018-05-26] MEDS: ERYTHROMYCIN BASE 250 MG TABLET PO SCH (08:36)
[2018-05-26] MEDS: ALPRAZolam 0.5 MG TABLET PO SCH ×2 (08:36→21:59)
[2018-05-26] MEDS: CHOLECALCIFEROL (VITAMIN D3) 5,000 UNIT CAPSULE PO SCH (08:37)
[2018-05-26] MEDS: POTASSIUM CHLORIDE 20 MEQ TABLET.ER. PO SCH (08:37)
[2018-05-26] MEDS: predniSONE 20 MG TABLET PO SCH (08:37)
[2018-05-26] MEDS: MELOXICAM 7.5 MG TABLET PO SCH (08:37)
[2018-05-26] MEDS: FLUTICASONE 50MCG/NASAL SPRAY 16GM BOTTLE. NS SCH (08:38)
[2018-05-26] MEDS: METOCLOPRAMIDE 10 MG TABLET. PO SCH ×4 (08:38→21:59)
[2018-05-26] MEDS: DOXYCYCLINE HYCLATE 100 MG in IV DEXTROSE 5% 100ML 100 ML IV SCH ×2 (08:39→22:01)
--- NOTE | 2018-05-26 08:54 | CONS ---
DATE OF CONSULTATION: 05/26/2018 I was asked to see this 57-year-old gentleman for rykni-[id number]-pculrqt respiratory failure. HISTORY OF PRESENT ILLNESS: He has history of 21-mgcc-ksmc smoking, stopped smoking in 2013. He has COPD. He is on oxygen 3 liters per minute via nasal cannula continuously. He presented to the Emergency Room with increased shortness of breath, cough with greenish sputum production and wheezing for the past few days. He feels nauseous now. He denies diarrhea. He has gastroesophageal reflux symptoms. He denies fever. His lactic acid was 4.4. He is started on IV fluid and antibiotic. PAST MEDICAL HISTORY: CHF, COPD, chronic respiratory failure, and hypertension. ALLERGIES: TYLENOL. MEDICATIONS: Currently, he is on IV fluid, Flonase, vitamin D, prednisone 40 mg daily, erythromycin, potassium, Xanax, Pulmicort, albuterol, doxycycline IV. SOCIAL HISTORY: History of [id number] smoking, stopped smoking in 2013. FAMILY HISTORY: Hypertension. REVIEW OF SYSTEMS: As mentioned as above, other systems otherwise negative. PHYSICAL EXAMINATION: GENERAL: This is an overweight gentleman. VITAL SIGNS: His O2 saturation is 96%, respiratory rate 18, heart rate 95, blood pressure 126/90, temperature 97.9. HEENT: Normocephalic, atraumatic. Pupils equal, round, reactive to light. There is shallow oropharynx. Nose is clear. NECK: There is no JVD, lymphadenopathy or thyromegaly. CARDIOVASCULAR: Regular rate and rhythm. PMI is nondisplaced. CHEST: Inspection is normal. LUNGS: Few bibasilar crackles, a few end-expiratory wheezing. Percussion is within normal limit. ABDOMEN: Soft and obese. Bowel sounds are good. There is no mass. EXTREMITIES: There is trace edema. LYMPHATICS: There is no lymphadenopathy. SKIN: Chronic changes. NEUROLOGIC: Alert and oriented. LABORATORY DATA: I reviewed the following lab data: Chest x-ray shows COPD changes, no infiltrate. Lactic acid on admission 4.4, this morning 2.2. Sodium 141, potassium 4.1, chloride 100, CO2 32, glucose 153, BUN 14, creatinine 1.2. Troponin 0.026. BNP 198. Urine drug screen negative. IMPRESSION: 1. [id number] respiratory failure secondary to acute bronchitis, acute exacerbation of chronic obstructive pulmonary disease, sepsis versus others. 2. Sepsis. 3. Acute bronchitis. 4. Acute exacerbation of chronic obstructive pulmonary disease. 5. History of congestive heart failure. 6. Hypertension. 7. Ex-smoker. PLAN AND RECOMMENDATIONS: 1. Titrate FiO2 to keep oxygen saturation 92%. 2. Continue bronchodilator. 3. Continue prednisone. 4. Start Protonix for stress ulcer prophylaxis. 5. Start Lovenox for DVT prophylaxis. 6. Nasal swab for influenza A and B. 7. Continue doxycycline, may change to p.o. I will add Rocephin. 8. Continue not smoking. 9. I agree with IV fluid. 10. Monitor lactic acid. 11. The findings and recommendations were discussed with the patient who understood and agreed to proceed with the plan. I have answered all of his questions. Thank you very much for allowing me to participate in care of this very nice gentleman. TAMAR RING M.D. : JOLENE/efrain JOB#: [id number] / [id number]
[2018-05-26] MEDS: CYCLOBENZAPRINE 10 MG TABLET. PO PRN ×2 (10:06→21:59)
[2018-05-26] MEDS: traMADol 50 MG TABLET PO PRN (10:06)
[2018-05-26 11:00] VITALS: BP 148/92
--- NOTE | 2018-05-26 11:14 | PDOC ---
PROGRESS NOTES History of Present Illness History of Present Illness VTE Prophylaxis Ordered VTE Prophylaxis Devices: Yes VTE Pharmacological Prophylaxi: Yes Assessment/Plan Assessment/Plan impression/ plan Acute on chronic respiratory failure - will give steroids, qid nebs Left ventricle systolic function is low normal. The Ejection Fraction is 50%. Transmitral Doppler flow pattern is Grade OV-[id number] filling dynamics. The left atrium size is normal. COPD with exacerbation and acute bronchitis - iv doxycycline, consult pulm. Needs bullectomy consideration at [facility] as has previously been discussed Severe emphysema with large bulla at the left apex, recent ct Patchy ground-glass opacity throughout both lungs with some increasing reticulonodular opacity along the bronchovascular bundles of the lower lobes. Consider infectious or inflammatory processes or chronic aspiration. Dysphagia with prior history of Rosanne esophagitis - hypertension CHF chronic combined, EF 50% acute exacerbation, GERD - cont PPI1. reflux to the level of the upper-mid thoracic esophagus. Anemia - of chronic disease. Avoid nephrotoxic meds, IVF CHRONIC HYPERCAPNIC RESP FAILURE Lactic acidosis sec volume depletion Chronic sinusitis plan blood cult pulm consult duonebs qid o2 support iv doxycycline 100mg bid, rocephin IV Q 24 HRS 1 GM dvt prophylaxis HOB AT 30 DEGREES to avoid reflux FOLLOW LACTIC ACID TELE ECHO abg ID CONSULT 47 MIN PT EXAM, CHART REVIEW,> 50% OF time spent with exam, chart review, pt care coordination Vitals Vitals Vital Signs Date Time Temp Pulse Resp B/P (MAP) Pulse Ox O2 Delivery O2 Flow Rate FiO2 05/26/18 10:06 16 Nasal Cannula 3.0 05/26/18 07:24 99 05/26/18 07:00 97.5 92 128/85 (99) 97.5 Physical Exam General: Alert, Oriented X3, Cooperative, mild distress Heart: Regular rate Lungs: Wheezing Abdomen: Soft Extremities: No cyanosis Skin: No significant lesion Labs LABS REASON: Pt c/o inability to swallow, handle secretions, throat swelling PROCEDURE: CT SOFT TISSUE NECK WO CONTRST Examination: CT SOFT TISSUE NECK WO CONTRST History: SWELLING TO THROAT; PREVIOUS STUDY X 1 MONTH AGO Comparison/Correlation: None Findings: Axial images of the neck were obtained without contrast. Sagittal and coronal reformatted images were provided. Fluid level in the right maxillary sinus is moderate size. Mucosal thickening and partial opacification. Small left maxillary sinus fluid level. Parotid and submandibular glands are unremarkable. No inflammatory changes about the pharynx. True and false cords are symmetric. Thyroid gland is unremarkable. Inflammatory changes about the superior thoracic esophagus noted. No enlarged lymph nodes identified. Significant degenerative disc space narrowing of the cervical spine multiple levels evident. Prevertebral soft tissues are unremarkable. Visualized trachea is unremarkable. Severe bullous emphysematous involvement of the lung lira noted greater on the left. Impression: Inflammatory findings about the superior thoracic esophagus. Correlate for underlying esophagitis or neoplastic process. Consider correlation with direct visualization. Significant emphysematous involvement of the upper lung lira. This is especially evident on the left. Consider two-view chest x-ray exam when able for more complete assessment. Acute bilateral maxillary sinusitis. Chronic sinusitis also seen. Electronically signed by: Carlos Roth MD (03/08/2018 12:02 AM) [facility] DICTATED and SIGNED BY: CARLOS ROTH MD DATE: 03/07/18 0069 Laboratory Tests Test 05/25/18 13:20 05/25/18 16:25 05/25/18 18:00 05/26/18 07:55 White Blood Count 7.8 x10^3/uL (4.0-11.0) 7.5 x10^3/uL (4.0-11.0) Red Blood Count 3.97 x10^6/uL (4.30-5.70) 3.57 x10^6/uL (4.30-5.70) Hemoglobin 12.0 g/dL (13.0-17.5) 10.7 g/dL (13.0-17.5) Hematocrit 36.6 % (39.0-53.0) 32.4 % (39.0-53.0) Mean Corpuscular Volume 92 fL (79-100) 91 fL (79-100) Mean Corpuscular Hemoglobin 30 pg (25-35) 30 pg (25-35) Mean Corpuscular Hemoglobin Concent 33 g/dL (31-37) 33 g/dL (31-37) Red Cell Distribution Width 16.0 % (11.5-14.5) 15.9 % (11.5-14.5) Platelet Count 212 x10^3/uL (140-400) 166 x10^3/uL (140-400) Neutrophils (%) (Auto) 92 % (31-73) 88 % (31-73) Lymphocytes (%) (Auto) 5 % (24-48) 5 % (24-48) Monocytes (%) (Auto) 3 % (0-9) 7 % (0-9) Eosinophils (%) (Auto) 0 % (0-3) 0 % (0-3) Basophils (%) (Auto) 0 % (0-3) 0 % (0-3) Neutrophils # (Auto) 7.3 x10^3uL (1.8-7.7) 6.6 x10^3uL (1.8-7.7) Lymphocytes # (Auto) 0.4 x10^3/uL (1.0-4.8) 0.4 x10^3/uL (1.0-4.8) Monocytes # (Auto) 0.2 x10^3/uL (0.0-1.1) 0.5 x10^3/uL (0.0-1.1) Eosinophils # (Auto) 0.0 x10^3/uL (0.0-0.7) 0.0 x10^3/uL (0.0-0.7) Basophils # (Auto) 0.0 x10^3/uL (0.0-0.2) 0.0 x10^3/uL (0.0-0.2) Segmented Neutrophils % 91 % (35-66) Band Neutrophils % 1 % (0-9) Lymphocytes % 7 % (24-48) Monocytes % 1 % (0-10) Nucleated Red Blood Cells 2 Platelet Estimate Adequate (ADEQUATE) Anisocytosis Slight D-Dimer (Almita) 0.77 ug/mlFEU (0.00-0.50) Sodium Level 141 mmol/L (136-145) 140 mmol/L (136-145) Potassium Level 4.1 mmol/L (3.5-5.1) 4.2 mmol/L (3.5-5.1) Chloride Level 100 mmol/L (98-107) 101 mmol/L (98-107) Carbon Dioxide Level 32 mmol/L (21-32) 31 mmol/L (21-32) Anion Gap 9 (6-14) 8 (6-14) Blood Urea Nitrogen 14 mg/dL (8-26) 16 mg/dL (8-26) Creatinine 1.2 mg/dL (0.7-1.3) 0.9 mg/dL (0.7-1.3) Estimated GFR (Cockcroft-Gault) 75.2 104.9 BUN/Creatinine Ratio 12 (6-20) 18 (6-20) Glucose Level 153 mg/dL (70-99) 127 mg/dL (70-99) Lactic Acid Level 4.4 mmol/L (0.4-2.0) 2.2 mmol/L (0.4-2.0) Calcium Level 9.1 mg/dL (8.5-10.1) 8.4 mg/dL (8.5-10.1) Magnesium Level 2.0 mg/dL (1.8-2.4) Total Bilirubin 0.7 mg/dL (0.2-1.0) 0.5 mg/dL (0.2-1.0) Aspartate Amino Transf (AST/SGOT) 22 U/L (15-37) 16 U/L (15-37) Alanine Aminotransferase (ALT/SGPT) 37 U/L (16-63) 31 U/L (16-63) Alkaline Phosphatase 116 U/L (46-116) 98 U/L (46-116) Creatine Kinase 140 U/L (39-308) Troponin I Quantitative 0.026 ng/mL (0.000-0.055) UT-Sdn-O-Type Natriuretic Peptide 198 pg/mL (0-124) Total Protein 7.1 g/dL (6.4-8.2) 5.9 g/dL (6.4-8.2) Albumin 3.6 g/dL (3.4-5.0) 3.0 g/dL (3.4-5.0) Albumin/Globulin Ratio 1.0 (1.0-1.7) 1.0 (1.0-1.7) Urine Collection Type Unknown Urine Color Yellow Urine Clarity Clear Urine pH 6.5 Urine Specific [place] 1.025 Urine Protein Negative mg/dL (NEG-TRACE) Urine Glucose (UA) 100 mg/dL (NEG) Urine Ketones (Stick) Negative mg/dL (NEG) Urine Blood Negative (NEG) Urine Nitrite Negative (NEG) Urine Bilirubin Negative (NEG) Urine Urobilinogen Dipstick 1.0 mg/dL (0.2 mg/dL) Urine Leukocyte Esterase Negative (NEG) Urine RBC 1-2 /HPF (0-2) Urine WBC Occ /HPF (0-4) Urine Squamous Epithelial Cells Few /LPF Urine Bacteria 0 /HPF (0-FEW) Urine Hyaline Casts Moderate /HPF Urine Mucus Mod /LPF Urine Opiates Screen Neg (NEG) Urine Methadone Screen Neg (NEG) Urine Barbiturates Neg (NEG) Urine Phencyclidine Screen Neg (NEG) Urine Amphetamine/Methamphetamine Neg (NEG) Urine Benzodiazepines Screen Neg (NEG) Urine Cocaine Screen Neg (NEG) Urine Cannabinoids Screen Neg (NEG) Urine Ethyl Alcohol Neg (NEG) Assessment and Plan Assessmemt and Plan Problems Medical Problems: (1) COPD exacerbation Status: Acute (2) Severe sepsis Status: Acute AORTIC VALVE The aortic valve is calcified but opens well. Doppler and Color Flow revealed no significant aortic regurgitation. There is no significant aortic valvular stenosis. MITRAL VALVE The mitral valve is calcified but opens well. There is no evidence of mitral valve prolapse. There is no mitral valve stenosis. Doppler and Color Flow revealed no mitral valve regurgitation noted. TRICUSPID VALVE The tricuspid valve is normal in structure and function. Doppler and Color Flow revealed no tricuspid valve regurgitation noted. There is no tricuspid valve stenosis. PULMONIC VALVE The pulmonic valve is not well visualized. Doppler and Color Flow revealed trace pulmonic valvular regurgitation. There is no pulmonic valvular stenosis. GREAT VESSELS The aortic root is normal in size. The ascending aorta is not well seen. The IVC is normal in size and collapses >50% with inspiration. PERICARDIAL EFFUSION There is no evidence of significant pericardial effusion. Critical Notification Critical Value: No <Conclusion> Left ventricle systolic function is low normal. The Ejection Fraction is 50%. Transmitral Doppler flow pattern is Grade II-pseudonormal filling dynamics. The left atrium size is normal. The right atrium size is normal. The aortic valve is calcified but opens well. The mitral valve is calcified but opens well. Doppler and Color Flow revealed no mitral valve regurgitation noted. The tricuspid valve is normal in structure and function. The pulmonic valve is not well visualized. There is no evidence of significant pericardial effusion. Signed by : Luke Palomares MD Electronically Approved : 01/18/2018 17:19:09 DICTATED and SIGNED BY: LUKE PALOMARES MD DATE: 01/18/18 [id number] Comment Review of Relevant I have reviewed the following items franki (where applicable) has been applied. Labs Laboratory Tests Test 05/25/18 13:20 05/25/18 16:25 05/25/18 18:00 05/26/18 07:55 White Blood Count 7.8 x10^3/uL (4.0-11.0) 7.5 x10^3/uL (4.0-11.0) Red Blood Count 3.97 x10^6/uL (4.30-5.70) 3.57 x10^6/uL (4.30-5.70) Hemoglobin 12.0 g/dL (13.0-17.5) 10.7 g/dL (13.0-17.5) Hematocrit 36.6 % (39.0-53.0) 32.4 % (39.0-53.0) Mean Corpuscular Volume 92 fL (79-100) 91 fL (79-100) Mean Corpuscular Hemoglobin 30 pg (25-35) 30 pg (25-35) Mean Corpuscular Hemoglobin Concent 33 g/dL (31-37) 33 g/dL (31-37) Red Cell Distribution Width 16.0 % (11.5-14.5) 15.9 % (11.5-14.5) Platelet Count 212 x10^3/uL (140-400) 166 x10^3/uL (140-400) Neutrophils (%) (Auto) 92 % (31-73) 88 % (31-73) Lymphocytes (%) (Auto) 5 % (24-48) 5 % (24-48) Monocytes (%) (Auto) 3 % (0-9) 7 % (0-9) Eosinophils (%) (Auto) 0 % (0-3) 0 % (0-3) Basophils (%) (Auto) 0 % (0-3) 0 % (0-3) Neutrophils # (Auto) 7.3 x10^3uL (1.8-7.7) 6.6 x10^3uL (1.8-7.7) Lymphocytes # (Auto) 0.4 x10^3/uL (1.0-4.8) 0.4 x10^3/uL (1.0-4.8) Monocytes # (Auto) 0.2 x10^3/uL (0.0-1.1) 0.5 x10^3/uL (0.0-1.1) Eosinophils # (Auto) 0.0 x10^3/uL (0.0-0.7) 0.0 x10^3/uL (0.0-0.7) Basophils # (Auto) 0.0 x10^3/uL (0.0-0.2) 0.0 x10^3/uL (0.0-0.2) Segmented Neutrophils % 91 % (35-66) Band Neutrophils % 1 % (0-9) Lymphocytes % 7 % (24-48) Monocytes % 1 % (0-10) Nucleated Red Blood Cells 2 Platelet Estimate Adequate (ADEQUATE) Anisocytosis Slight D-Dimer (Almita) 0.77 ug/mlFEU (0.00-0.50) Sodium Level 141 mmol/L (136-145) 140 mmol/L (136-145) Potassium Level 4.1 mmol/L (3.5-5.1) 4.2 mmol/L (3.5-5.1) Chloride Level 100 mmol/L (98-107) 101 mmol/L (98-107) Carbon Dioxide Level 32 mmol/L (21-32) 31 mmol/L (21-32) Anion Gap 9 (6-14) 8 (6-14) Blood Urea Nitrogen 14 mg/dL (8-26) 16 mg/dL (8-26) Creatinine 1.2 mg/dL (0.7-1.3) 0.9 mg/dL (0.7-1.3) Estimated GFR (Cockcroft-Gault) 75.2 104.9 BUN/Creatinine Ratio 12 (6-20) 18 (6-20) Glucose Level 153 mg/dL (70-99) 127 mg/dL (70-99) Lactic Acid Level 4.4 mmol/L (0.4-2.0) 2.2 mmol/L (0.4-2.0) Calcium Level 9.1 mg/dL (8.5-10.1) 8.4 mg/dL (8.5-10.1) Magnesium Level 2.0 mg/dL (1.8-2.4) Total Bilirubin 0.7 mg/dL (0.2-1.0) 0.5 mg/dL (0.2-1.0) Aspartate Amino Transf (AST/SGOT) 22 U/L (15-37) 16 U/L (15-37) Alanine Aminotransferase (ALT/SGPT) 37 U/L (16-63) 31 U/L (16-63) Alkaline Phosphatase 116 U/L (46-116) 98 U/L (46-116) Creatine Kinase 140 U/L (39-308) Troponin I Quantitative 0.026 ng/mL (0.000-0.055) NS-Mct-T-Type Natriuretic Peptide 198 pg/mL (0-124) Total Protein 7.1 g/dL (6.4-8.2) 5.9 g/dL (6.4-8.2) Albumin 3.6 g/dL (3.4-5.0) 3.0 g/dL (3.4-5.0) Albumin/Globulin Ratio 1.0 (1.0-1.7) 1.0 (1.0-1.7) Urine Collection Type Unknown Urine Color Yellow Urine Clarity Clear Urine pH 6.5 Urine Specific [place] 1.025 Urine Protein Negative mg/dL (NEG-TRACE) Urine Glucose (UA) 100 mg/dL (NEG) Urine Ketones (Stick) Negative mg/dL (NEG) Urine Blood Negative (NEG) Urine Nitrite Negative (NEG) Urine Bilirubin Negative (NEG) Urine Urobilinogen Dipstick 1.0 mg/dL (0.2 mg/dL) Urine Leukocyte Esterase Negative (NEG) Urine RBC 1-2 /HPF (0-2) Urine WBC Occ /HPF (0-4) Urine Squamous Epithelial Cells Few /LPF Urine Bacteria 0 /HPF (0-FEW) Urine Hyaline Casts Moderate /HPF Urine Mucus Mod /LPF Urine Opiates Screen Neg (NEG) Urine Methadone Screen Neg (NEG) Urine Barbiturates Neg (NEG) Urine Phencyclidine Screen Neg (NEG) Urine Amphetamine/Methamphetamine Neg (NEG) Urine Benzodiazepines Screen Neg (NEG) Urine Cocaine Screen Neg (NEG) Urine Cannabinoids Screen Neg (NEG) Urine Ethyl Alcohol Neg (NEG) Laboratory Tests Test 05/25/18 13:20 05/25/18 16:25 05/25/18 18:00 05/26/18 07:55 White Blood Count 7.8 x10^3/uL (4.0-11.0) 7.5 x10^3/uL (4.0-11.0) Red Blood Count 3.97 x10^6/uL (4.30-5.70) 3.57 x10^6/uL (4.30-5.70) Hemoglobin 12.0 g/dL (13.0-17.5) 10.7 g/dL (13.0-17.5) Hematocrit 36.6 % (39.0-53.0) 32.4 % (39.0-53.0) Mean Corpuscular Volume 92 fL (79-100) 91 fL (79-100) Mean Corpuscular Hemoglobin 30 pg (25-35) 30 pg (25-35) Mean Corpuscular Hemoglobin Concent 33 g/dL (31-37) 33 g/dL (31-37) Red Cell Distribution Width 16.0 % (11.5-14.5) 15.9 % (11.5-14.5) Platelet Count 212 x10^3/uL (140-400) 166 x10^3/uL (140-400) Neutrophils (%) (Auto) 92 % (31-73) 88 % (31-73) Lymphocytes (%) (Auto) 5 % (24-48) 5 % (24-48) Monocytes (%) (Auto) 3 % (0-9) 7 % (0-9) Eosinophils (%) (Auto) 0 % (0-3) 0 % (0-3) Basophils (%) (Auto) 0 % (0-3) 0 % (0-3) Neutrophils # (Auto) 7.3 x10^3uL (1.8-7.7) 6.6 x10^3uL (1.8-7.7) Lymphocytes # (Auto) 0.4 x10^3/uL (1.0-4.8) 0.4 x10^3/uL (1.0-4.8) Monocytes # (Auto) 0.2 x10^3/uL (0.0-1.1) 0.5 x10^3/uL (0.0-1.1) Eosinophils # (Auto) 0.0 x10^3/uL (0.0-0.7) 0.0 x10^3/uL (0.0-0.7) Basophils # (Auto) 0.0 x10^3/uL (0.0-0.2) 0.0 x10^3/uL (0.0-0.2) Segmented Neutrophils % 91 % (35-66) Band Neutrophils % 1 % (0-9) Lymphocytes % 7 % (24-48) Monocytes % 1 % (0-10) Nucleated Red Blood Cells 2 Platelet Estimate Adequate (ADEQUATE) Anisocytosis Slight D-Dimer (Almita) 0.77 ug/mlFEU (0.00-0.50) Sodium Level 141 mmol/L (136-145) 140 mmol/L (136-145) Potassium Level 4.1 mmol/L (3.5-5.1) 4.2 mmol/L (3.5-5.1) Chloride Level 100 mmol/L (98-107) 101 mmol/L (98-107) Carbon Dioxide Level 32 mmol/L (21-32) 31 mmol/L (21-32) Anion Gap 9 (6-14) 8 (6-14) Blood Urea Nitrogen 14 mg/dL (8-26) 16 mg/dL (8-26) Creatinine 1.2 mg/dL (0.7-1.3) 0.9 mg/dL (0.7-1.3) Estimated GFR (Cockcroft-Gault) 75.2 104.9 BUN/Creatinine Ratio 12 (6-20) 18 (6-20) Glucose Level 153 mg/dL (70-99) 127 mg/dL (70-99) Lactic Acid Level 4.4 mmol/L (0.4-2.0) 2.2 mmol/L (0.4-2.0) Calcium Level 9.1 mg/dL (8.5-10.1) 8.4 mg/dL (8.5-10.1) Magnesium Level 2.0 mg/dL (1.8-2.4) Total Bilirubin 0.7 mg/dL (0.2-1.0) 0.5 mg/dL (0.2-1.0) Aspartate Amino Transf (AST/SGOT) 22 U/L (15-37) 16 U/L (15-37) Alanine Aminotransferase (ALT/SGPT) 37 U/L (16-63) 31 U/L (16-63) Alkaline Phosphatase 116 U/L (46-116) 98 U/L (46-116) Creatine Kinase 140 U/L (39-308) Troponin I Quantitative 0.026 ng/mL (0.000-0.055) AC-Ghs-R-Type Natriuretic Peptide 198 pg/mL (0-124) Total Protein 7.1 g/dL (6.4-8.2) 5.9 g/dL (6.4-8.2) Albumin 3.6 g/dL (3.4-5.0) 3.0 g/dL (3.4-5.0) Albumin/Globulin Ratio 1.0 (1.0-1.7) 1.0 (1.0-1.7) Urine Collection Type Unknown Urine Color Yellow Urine Clarity Clear Urine pH 6.5 Urine Specific [place] 1.025 Urine Protein Negative mg/dL (NEG-TRACE) Urine Glucose (UA) 100 mg/dL (NEG) Urine Ketones (Stick) Negative mg/dL (NEG) Urine Blood Negative (NEG) Urine Nitrite Negative (NEG) Urine Bilirubin Negative (NEG) Urine Urobilinogen Dipstick 1.0 mg/dL (0.2 mg/dL) Urine Leukocyte Esterase Negative (NEG) Urine RBC 1-2 /HPF (0-2) Urine WBC Occ /HPF (0-4) Urine Squamous Epithelial Cells Few /LPF Urine Bacteria 0 /HPF (0-FEW) Urine Hyaline Casts Moderate /HPF Urine Mucus Mod /LPF Urine Opiates Screen Neg (NEG) Urine Methadone Screen Neg (NEG) Urine Barbiturates Neg (NEG) Urine Phencyclidine Screen Neg (NEG) Urine Amphetamine/Methamphetamine Neg (NEG) Urine Benzodiazepines Screen Neg (NEG) Urine Cocaine Screen Neg (NEG) Urine Cannabinoids Screen Neg (NEG) Urine Ethyl Alcohol Neg (NEG) Medications Current Medications Sodium Chloride 1,000 ml @ 1,000 mls/hr Q1H IV Last administered on 05/25/18at 13:48; Start 05/25/18 at 13:22; Stop 05/25/18 at 14:21; Status DC Albuterol/ Ipratropium (Duoneb) 3 ml 1X ONCE NEB Last administered on at 13:57; Start 05/25/18 at 13:30; Stop 05/25/18 at 13:31; Status DC Methylprednisolone Sodium Succinate (SOLU-Medrol 125MG VIAL) 125 mg 1X ONCE IV Last administered on 05/25/18at 13:47; Start 05/25/18 at 13:30; Stop 05/25/18 at 13:31; Status DC Ceftriaxone Sodium (Rocephin) 1 gm 1X ONCE IVP ; Start 05/25/18 at 14:15; Stop 05/25/18 at 14:15; Status DC Piperacillin Sod/ Tazobactam Sod 3.375 gm/Sodium Chloride 50 ml @ 100 mls/hr 1X ONCE IV Last administered on 05/25/18at 15:02; Start 05/25/18 at 14:15; Stop 05/25/18 at 14:44; Status DC Vancomycin HCl 250 ml @ 250 mls/hr 1X ONCE IV ; Start 05/25/18 at 14:15; Stop 05/25/18 at 15:14; Status DC Sodium Chloride 1,000 ml @ 1,000 mls/hr 1X ONCE IV ; Start 05/25/18 at 14:15; Stop 05/25/18 at 15:14; Status DC Sodium Chloride 1,000 ml @ 1,000 mls/hr 1X ONCE IV ; Start 05/25/18 at 14:15; Stop 05/25/18 at 15:14; Status DC Sodium Chloride 1,000 ml @ 150 mls/hr Q6H40M IV Last administered on at 03:41; Start 05/25/18 at 14:21; Stop 05/26/18 at 14:20 Albuterol Sulfate (Ventolin Neb Soln) 2.5 mg PRN Q4HRS PRN NEB SHORTNESS OF BREATH Last administered on 05/25/18at 16:16; Start 05/25/18 at 15:30 Alprazolam (Xanax) 0.5 mg BID PO Last administered on 05/26/18at 08:36; Start at 21:00 Atorvastatin Calcium (Lipitor) 10 mg HS PO Last administered on 05/25/18at 20:42 ; Start 05/25/18 at 21:00 Erythromycin (E-Mycin) 250 mg DAILY PO Last administered on 05/26/18at 08:36; Start 05/26/18 at 09:00 Metoclopramide HCl (Reglan) 5 mg QID PO Last administered on 05/26/18 08:38; Start 05/25/18 at 17:00 Prednisone (Prednisone) 40 mg DAILY PO Last administered on 05/26/18 08:37; Start 05/26/18 at 09:00 Tramadol HCl (Ultram) 50 mg PRN Q6HRS PRN PO PAIN Last administered on 10:06; Start 05/25/18 at 15:30 Albuterol Sulfate (Ventolin Neb Soln) 2.5 mg Q4HRS NEB Last administered on 07:23; Start 05/25/18 at 20:00 Budesonide (Pulmicort) 0.5 mg RTBID NEB Last administered on 05/26/18 07:23; Start 05/25/18 at 20:00 Vitamin D (Vitamin D3) 5,000 unit DAILY PO Last administered on 05/26/18 08:37 ; Start 05/26/18 at 09:00 Cyclobenzaprine HCl (Flexeril) 5 mg PRN TID PRN PO MUSCLE SPASMS Last administered on 05/26/18 10:06; Start 05/25/18 at 16:00 Fluticasone Propionate (Flonase) 2 spray DAILY NS Last administered on 08:38; Start 05/26/18 at 09:00 Meloxicam (Mobic) 7.5 mg DAILY PO Last administered on 05/26/18 08:37; Start 05/26/18 at 09:00 Potassium Chloride (Klor-Con) 20 meq DAILYWBKFT PO Last administered on 08:37; Start 05/26/18 at 08:00 Non-Formulary Medication (Tizanidine Hcl ) 4 mg QID PRN PO MUSCLE SPASMS; Start 05/25/18 at 15:30; Stop 05/25/18 at 16:44; Status DC Doxycycline Hyclate 100 mg/ Dextrose 100 ml @ 50 mls/hr Q12HR IV Last administered on 05/26/18 08:39; Start 05/25/18 at 16:00 Sodium Chloride 1,000 ml @ 125 mls/hr 1X ONCE IV Last administered on 4/13/ 19at 18:20; Start 05/25/18 at 15:30; Stop 05/25/18 at 23:29; Status DC Enoxaparin Sodium (Lovenox 40mg Syringe) 40 mg Q24H SQ Last administered on at 18:21; Start 05/25/18 at 16:00 Sodium Chloride (Normal Saline Flush 3ml) 3 ml QSHIFT PRN IV AFTER MEDS AND BLOOD DRAWS; Start 05/25/18 at 15:45 Ondansetron HCl (Zofran) 4 mg PRN Q4HRS PRN IV NAUSEA/VOMITING; Start 05/25/18 at 15:45 Zolpidem Tartrate (Ambien) 5 mg PRN QHS PRN PO INSOMNIA; Start 05/25/18 at 15: 45 Acetaminophen (Tylenol) 650 mg PRN Q4HRS PRN PO TEMP OVER 100.4F OR MILD PAIN; Start 05/25/18 at 15:45 Al Hydroxide/Mg Hydroxide (Mylanta Plus Xs) 30 ml PRN DAILY PRN PO HEARTBURN / GAS; Start 05/25/18 at 15:45 Clonidine HCl (Catapres) 0.1 mg PRN Q6HRS PRN PO SBP>160 OR DBP>90; Start 05/25 at 15:45 Docusate Sodium (Colace) 100 mg PRN BID PRN PO CONSTIPATION; Start 05/25/18 at 15:45 Guaifenesin (Robitussin) 200 mg PRN Q4HRS PRN PO COUGH; Start 05/25/18 at 15:45 Lorazepam (Ativan) 0.5 mg PRN Q4HRS PRN PO ANXIETY / AGITATION; Start 05/25/18 at 15:45 Ceftriaxone Sodium (Rocephin) 1 gm Q24H IVP ; Start 05/26/18 at 13:00 Pantoprazole Sodium (Protonix) 40 mg DAILYAC PO ; Start 05/26/18 at 13:00 Enoxaparin Sodium (Lovenox 40mg Syringe) 40 mg Q24H SQ ; Start 05/26/18 at 08:30 ; Status UNV Active Scripts Active Prednisone 50 Mg Tablet 1 Tab PO DAILY Ventolin Hfa Inhaler (Albuterol Sulfate) 18 Gm Hfa.aer.ad 2 Puff INH Q4HRS Tramadol Hcl 50 Mg Tablet 50 Mg PO Q6HRS PRN Prednisone 20 Mg Tablet 1 Tab PO DAILY Tramadol Hcl 50 Mg Tablet 50-100 Mg PO PRN Q6HRS PRN 6 Days Doxycycline Hyclate 100 Mg Capsule 1 Cap PO BID Medrol (Methylprednisolone) 4 Mg Tab.ds.pk 1 Pkg PO UD Mobic (Meloxicam) 7.5 Mg Tablet 1-2 Tab PO DAILY 5 Days Cyclobenzaprine Hcl 5 Mg Tablet 5 Mg PO PRN TID PRN Prednisone 50 Mg Tablet 1 Tab PO DAILY Reglan (Metoclopramide Hcl) 10 Mg Tablet 0.5 Tab PO QID 30 Days Xanax (Alprazolam) 0.5 Mg Tablet 1 Tab PO BID Prednisone 20 Mg Tablet 40 Mg PO DAILY Furosemide 20 Mg Tablet 1 Tab PO DAILY Albuterol Sulfate Neb Soln (Albuterol Sulfate) 2.5 Mg/3 Ml Vial.neb 1 Vial NEB PRN Q4HRS Reported Erythromycin (Erythromycin Base) 250 Mg Tablet 250 Mg PO DAILY Vitamin D3 (Cholecalciferol (Vitamin D3)) 5,000 Unit Tablet 5,000 Unit PO DAILY Potassium Chloride 20 Meq Tablet.er 20 Meq PO DAILY Protonix (Pantoprazole Sodium) 20 Mg Tablet.dr 1 Tab PO DAILY Flonase Allergy Relief (Fluticasone Propionate) 9.9 Ml Rule.susp 2 Sprays NS DAILY Atorvastatin Calcium 10 Mg Tablet 10 Mg PO HS Symbicort 160-4.5 Mcg Inhaler (Budesonide/Formoterol Fumarate) 10.2 Gm Hfa.aer.ad 2 Puff IH BID Spiriva (Tiotropium Marshall) 18 Mcg Cap.w.dev 2 Inh IH DAILY Vitals/I & O Vital Sign - Last 24 Hours 05/25/18 05/25/18 05/25/18 05/25/18 13:10 13:30 13:57 14:00 Temp 98.2 98.2 Pulse 119 132 102 Resp 24 11 18 B/P (MAP) 142/103 (116) 174/90 (118) 158/93 (114) Pulse Ox 98 100 98 100 O2 Delivery Nasal Cannula Nasal Cannula Nasal Cannula Nasal Cannula O2 Flow Rate 3.0 3.0 3.0 3.0 05/25/18 05/25/18 05/25/18 05/25/18 14:30 15:39 16:16 19:38 Temp 97.4 98.1 97.4 98.1 Pulse 100 98 106 Resp 12 18 20 B/P (MAP) 142/88 (106) 130/91 (104) 130/88 (102) Pulse Ox 100 91 98 92 O2 Delivery Nasal Cannula Nasal Cannula Nasal Cannula Nasal Cannula O2 Flow Rate 3.0 3.0 3.0 3.0 05/25/18 05/25/18 05/25/18 05/26/18 20:48 23:34 23:44 03:28 Temp 98.1 97.9 98.1 97.9 Pulse 88 95 Resp 18 18 B/P (MAP) 124/83 (97) 126/90 (102) Pulse Ox 98 95 94 O2 Delivery Nasal Cannula Nasal Cannula Nasal Cannula Nasal Cannula O2 Flow Rate 3.0 3.0 3.0 3.0 05/26/18 05/26/18 05/26/18 05/26/18 07:00 07:24 08:00 10:06 Temp 97.5 97.5 Pulse 92 Resp 18 16 B/P (MAP) 128/85 (99) Pulse Ox 100 99 O2 Delivery Breathing Treatment Nasal Cannula Nasal Cannula Nasal Cannula O2 Flow Rate 3.0 3.0 3.0 Intake and Output 05/25/18 05/25/18 05/26/18 14:59 22:59 06:59 Intake Total 250 ml 450 ml Output Total 320 ml Balance -70 ml 450 ml TOMAS BAIG MD May 26, 2018 11:14
--- NOTE | 2018-05-26 12:20 | PDOC ---
Infectious Disease Note Vital Sign Vital Signs Vital Signs Date Time Temp Pulse Resp B/P (MAP) Pulse Ox O2 Delivery O2 Flow Rate FiO2 05/26/18 11:00 98.7 118 20 148/92 (110) 94 Room Air 98.7 05/26/18 10:06 3.0 Labs Lab Laboratory Tests Test 05/25/18 13:20 05/25/18 16:25 05/25/18 18:00 05/26/18 07:55 White Blood Count 7.8 x10^3/uL (4.0-11.0) 7.5 x10^3/uL (4.0-11.0) Red Blood Count 3.97 x10^6/uL (4.30-5.70) 3.57 x10^6/uL (4.30-5.70) Hemoglobin 12.0 g/dL (13.0-17.5) 10.7 g/dL (13.0-17.5) Hematocrit 36.6 % (39.0-53.0) 32.4 % (39.0-53.0) Mean Corpuscular Volume 92 fL (79-100) 91 fL (79-100) Mean Corpuscular Hemoglobin 30 pg (25-35) 30 pg (25-35) Mean Corpuscular Hemoglobin Concent 33 g/dL (31-37) 33 g/dL (31-37) Red Cell Distribution Width 16.0 % (11.5-14.5) 15.9 % (11.5-14.5) Platelet Count 212 x10^3/uL (140-400) 166 x10^3/uL (140-400) Neutrophils (%) (Auto) 92 % (31-73) 88 % (31-73) Lymphocytes (%) (Auto) 5 % (24-48) 5 % (24-48) Monocytes (%) (Auto) 3 % (0-9) 7 % (0-9) Eosinophils (%) (Auto) 0 % (0-3) 0 % (0-3) Basophils (%) (Auto) 0 % (0-3) 0 % (0-3) Neutrophils # (Auto) 7.3 x10^3uL (1.8-7.7) 6.6 x10^3uL (1.8-7.7) Lymphocytes # (Auto) 0.4 x10^3/uL (1.0-4.8) 0.4 x10^3/uL (1.0-4.8) Monocytes # (Auto) 0.2 x10^3/uL (0.0-1.1) 0.5 x10^3/uL (0.0-1.1) Eosinophils # (Auto) 0.0 x10^3/uL (0.0-0.7) 0.0 x10^3/uL (0.0-0.7) Basophils # (Auto) 0.0 x10^3/uL (0.0-0.2) 0.0 x10^3/uL (0.0-0.2) Segmented Neutrophils % 91 % (35-66) Band Neutrophils % 1 % (0-9) Lymphocytes % 7 % (24-48) Monocytes % 1 % (0-10) Nucleated Red Blood Cells 2 Platelet Estimate Adequate (ADEQUATE) Anisocytosis Slight D-Dimer ([place]) 0.77 ug/mlFEU (0.00-0.50) Sodium Level 141 mmol/L (136-145) 140 mmol/L (136-145) Potassium Level 4.1 mmol/L (3.5-5.1) 4.2 mmol/L (3.5-5.1) Chloride Level 100 mmol/L (98-107) 101 mmol/L (98-107) Carbon Dioxide Level 32 mmol/L (21-32) 31 mmol/L (21-32) Anion Gap 9 (6-14) 8 (6-14) Blood Urea Nitrogen 14 mg/dL (8-26) 16 mg/dL (8-26) Creatinine 1.2 mg/dL (0.7-1.3) 0.9 mg/dL (0.7-1.3) Estimated GFR (Cockcroft-Gault) 75.2 104.9 BUN/Creatinine Ratio 12 (6-20) 18 (6-20) Glucose Level 153 mg/dL (70-99) 127 mg/dL (70-99) Lactic Acid Level 4.4 mmol/L (0.4-2.0) 2.2 mmol/L (0.4-2.0) Calcium Level 9.1 mg/dL (8.5-10.1) 8.4 mg/dL (8.5-10.1) Magnesium Level 2.0 mg/dL (1.8-2.4) Total Bilirubin 0.7 mg/dL (0.2-1.0) 0.5 mg/dL (0.2-1.0) Aspartate Amino Transf (AST/SGOT) 22 U/L (15-37) 16 U/L (15-37) Alanine Aminotransferase (ALT/SGPT) 37 U/L (16-63) 31 U/L (16-63) Alkaline Phosphatase 116 U/L (46-116) 98 U/L (46-116) Creatine Kinase 140 U/L (39-308) Troponin I Quantitative 0.026 ng/mL (0.000-0.055) HV-Nog-P-Type Natriuretic Peptide 198 pg/mL (0-124) Total Protein 7.1 g/dL (6.4-8.2) 5.9 g/dL (6.4-8.2) Albumin 3.6 g/dL (3.4-5.0) 3.0 g/dL (3.4-5.0) Albumin/Globulin Ratio 1.0 (1.0-1.7) 1.0 (1.0-1.7) Urine Collection Type Unknown Urine Color Yellow Urine Clarity Clear Urine pH 6.5 Urine Specific [place] 1.025 Urine Protein Negative mg/dL (NEG-TRACE) Urine Glucose (UA) 100 mg/dL (NEG) Urine Ketones (Stick) Negative mg/dL (NEG) Urine Blood Negative (NEG) Urine Nitrite Negative (NEG) Urine Bilirubin Negative (NEG) Urine Urobilinogen Dipstick 1.0 mg/dL (0.2 mg/dL) Urine Leukocyte Esterase Negative (NEG) Urine RBC 1-2 /HPF (0-2) Urine WBC Occ /HPF (0-4) Urine Squamous Epithelial Cells Few /LPF Urine Bacteria 0 /HPF (0-FEW) Urine Hyaline Casts Moderate /HPF Urine Mucus Mod /LPF Urine Opiates Screen Neg (NEG) Urine Methadone Screen Neg (NEG) Urine Barbiturates Neg (NEG) Urine Phencyclidine Screen Neg (NEG) Urine Amphetamine/Methamphetamine Neg (NEG) Urine Benzodiazepines Screen Neg (NEG) Urine Cocaine Screen Neg (NEG) Urine Cannabinoids Screen Neg (NEG) Urine Ethyl Alcohol Neg (NEG) Objective Assessment Acute on chronic respiratory failure, O2 dependent 3L Exacerbation COPD Bullous emphysema Lactic acidosis HTN Plan Plan of Care Doxy and Rocephin Sputum culture Influenza screen pending Supportive care Thank you [id number] Patient seen and examined. Chart reviewed in detail. Case discussed with KITCHEN ASSISTANT. Agree with above plan. EVIE MARISCAL HONING MACHINE OPERATOR PRODUCTION May 26, 2018 12:20 IRASEMA MALONE MD May 26, 2018 18:57
[2018-05-26] MEDS: PANTOPRAZOLE 40 MG TABLET.DR. PO SCH (12:28)
[2018-05-26] MEDS: cefTRIAXone IV Push 1 GM VIAL. IVP SCH (12:29)
[2018-05-26 13:46] LABS: INFLUENZA A PATIENT NEGATIVE (NEGATIVE); INFLUENZA B PATIENT NEGATIVE (NEGATIVE)
[2018-05-26 15:00] VITALS: BP 121/79
[2018-05-26] MEDS: ENOXAPARIN 40 MG/0.4 ML SYRINGE. SQ SCH (16:00)
--- NOTE | 2018-05-26 19:57 | CARD ---
MR#: [id number] Date of Study: 05/26/2018 Ordering Physician: TOMAS BAIG, Referring Physician: TOMAS BAIG, Tech: Emma Michel APPROVED REPORT EXAM: Two-dimensional and M-mode echocardiogram with Doppler and color Doppler. Other Information Quality : AverageHR: 101bpm INDICATION COPD Dyspnea Chest Pain Congestive Heart Failure RISK FACTORS Hypertension 2D DIMENSIONS RVDd3.1 (2.9-3.5cm)Left Atrium(2D)3.1 (1.6-4.0cm) IVSd1.1 (0.7-1.1cm)Aortic Root(2D)3.5 (2.0-3.7cm) LVDd4.1 (3.9-5.9cm)LVOT Diameter2.2 (1.8-2.4cm) PWd1.4 (0.7-1.1cm)LVDs3.0 (2.5-4.0cm) FS (%) 27.6 %SV41.2 ml LVEF(%)54.0 (>50%) Aortic Valve AoV Peak Hema.111.6cm/sAoV VTI22.7cm AO Peak GR.5.0mmHgLVOT VTI 14.38cm AO Mean GR.5mmHg TDI Lateral E' P. V9.40cm/sMedial E' P. V8.88cm/s Pulmonary Vein S1 Dqlmgtoe36.7cm/sS2 Meoirlsf19.07cm/s D2 Xbesdiah56.1cm/sPVa [id number] LEFT VENTRICLE The left ventricle is normal size. There is moderate concentric left ventricular hypertrophy. The lef t ventricular systolic function is normal and the ejection fraction is within normal range. The Eject ion Fraction is >55%. There is normal LV segmental wall motion. Transmitral Doppler flow pattern is G rade I-abnormal relaxation pattern. RIGHT VENTRICLE The right ventricle is moderately dilated. There is normal right ventricular wall thickness. The righ t ventricular systolic function is normal. ATRIA The left atrium is mildly dilated. The right atrium size is normal. The interatrial septum is intact with no evidence for an atrial septal defect or patent foramen ovale as noted on 2-D or Doppler imagi ng. AORTIC VALVE The aortic valve is not well visualized. Doppler and Color Flow revealed no significant aortic regurg itation. There is no significant aortic valvular stenosis. MITRAL VALVE The mitral valve is normal in structure and function. There is no evidence of mitral valve prolapse. There is no mitral valve stenosis. Doppler and Color Flow revealed no mitral valve regurgitation note d. TRICUSPID VALVE The tricuspid valve is normal in structure and function. Doppler and Color Flow revealed no tricuspid valve regurgitation noted. There is no tricuspid valve stenosis. PULMONIC VALVE The pulmonic valve is not well visualized. Doppler and Color Flow revealed no pulmonic valvular regur gitation. There is no pulmonic valvular stenosis. GREAT VESSELS The aortic root is normal in size. The IVC is dilated and collapses >50% with inspiration. PERICARDIAL EFFUSION There is no evidence of significant pericardial effusion. Critical Notification Critical Value: No <Conclusion> The left ventricular systolic function is normal and the ejection fraction is within normal range. Th e Ejection Fraction is >55%. There is normal LV segmental wall motion. The right ventricle is moderately dilated. The right ventricular systolic function is normal. Signed by : Luis Manuel Thornton, Electronically Approved : 05/26/2018 19:57:37
[2018-05-26 19:58] VITALS: BP 123/76
[2018-05-26] MEDS: ATORVASTATIN CALCIUM 10 MG TABLET. PO SCH (22:00)
[2018-05-26] MEDS: LACTOBACILLUS RHAMNOSUS GG 1 CAPSULE. PO SCH (22:00)
[2018-05-26 23:56] VITALS: BP 138/85
--- NOTE | 2018-05-27 03:23 | CONS ---
DATE OF CONSULTATION: 05/26/2018 REFERRING PHYSICIAN: Lico Mccormick MD REASON FOR CONSULTATION: COPD exacerbation and aspiration pneumonitis. HISTORY OF PRESENT ILLNESS: This patient is a 57-year-old -[place] male with PMH of chronic respiratory failure and severe COPD with extensive bullous emphysema, oxygen dependent on 3 L. He has had multiple hospitalizations and ER visits over the last few months. He says he was at his sister's house just sitting when he suddenly, "I couldn't catch my breath." He has been having increased shortness of air, productive cough and wheezing for the last few days. He denies chest pain, palpitations, fever, chills or sweats. Chest x-ray showed no acute infiltrates, effusion or pneumothorax. He had a normal white blood cell count and a lactic acid level of 4.4. He was treated with DuoNeb, Solu-Medrol, and a one-time dose of vancomycin and Zosyn. He is now currently on doxycycline and ceftriaxone. ID has been asked to consult for further evaluation and antibiotic management. The patient says his work of breathing is less. He did have to increase his oxygen level for low saturations, but is now back to baseline of 3 L oxygen. He says he has not followed up with [facility] for possible pneumonectomy as of yet. PAST MEDICAL HISTORY: Severe chronic obstructive pulmonary disease, bullous emphysema, lung disease, chronic respiratory failure, myocardial infarction, congestive heart failure, hyperlipidemia, hypertension, GERD, chronic renal disease, prediabetes, anxiety, sleep apnea. PAST SURGICAL HISTORY: No significant past surgical history. SOCIAL HISTORY: Former smoker. FAMILY HISTORY: Positive for tumor, hypertension and cardiovascular disease. ALLERGIES: ACETAMINOPHEN. MEDICATIONS: Doxycycline, ceftriaxone, 1 time dose of vancomycin, 1 time dose of Zosyn, erythromycin, guaifenesin, DuoNeb, Solu-Medrol. Other medications are available and have been reviewed on the APR. REVIEW OF SYSTEMS: Per HPI, otherwise all other review of systems are negative. PHYSICAL EXAMINATION: VITAL SIGNS: Temperature 98.7, blood pressure 148/92, heart rate 118, respiratory rate 20, pulse oximetry 94% on 3 L of oxygen, BMI 23. GENERAL: The patient is slightly propped up in bed, alert, relaxed appearance. HEENT: Pupils equally round. Normal conjunctivae. Oral cavity: Pharynx pink and dry. NECK: Supple. LUNGS: Diminished aeration throughout. HEART: S1, S2. ABDOMEN: Obese, soft, nontender with bowel sounds present. EXTREMITIES: 2+ edema in lower extremities bilaterally. No cyanosis. SKIN: Warm and dry. NEUROLOGIC: Alert and responds appropriately. LABORATORY DATA: Today's WBC 7.5, hemoglobin 10.7, platelets 166,000. Creatinine 0.9, BUN 16. Electrolytes unremarkable. Glucose 127. Lactic acid 2.2 from 4.4, AST 16, ALT 31, albumin 3.0. Urine toxicology negative. Urinalysis unremarkable for infection. Blood cultures are pending. Influenza screen pending. IMAGING DATA: Chest x-ray per HPI. IMPRESSION: 1. Acute on chronic respiratory failure. 2. Exacerbation of chronic obstructive pulmonary disease. 3. Bullous emphysema. 4. Lactic acidosis. 5. Hypertension. PLAN: Continue the doxycycline and ceftriaxone empirically. Obtain a sputum culture. Influenza screen has been ordered. We will follow up on blood culture results. Supportive care. Thank you, Dr. Mccormick, for asking us to participate in this patient's care. Should you have further questions or concerns, please call. IRASEMA MALONE MD DR: BRIANNA/efrain JOB#: [id number] / [id number]
[2018-05-27] MEDS: ALBUTEROL SULFATE 2.5 MG/3 ML NEBU. NEB SCH ×6 (03:36→23:50)
[2018-05-27 03:41] VITALS: BP 134/72
[2018-05-27 04:54] LABS: BASO % 0 % (0-3); EOS % 0 % (0-3); HEMOGLOBIN 10.6 g/dL (13.0-17.5); LYMPH # 0.4 x10^3/uL (1.0-4.8); LYMPH % 6 % (24-48); MEAN CORPUSCULAR HEMOGLOBIN 31 pg (25-35); MEAN CORPUSCULAR HGB CONC 33 g/dL (31-37); MEAN CORPUSCULAR VOLUME 92 fL (79-100); MONO # 0.5 x10^3/uL (0.0-1.1); MONO % 7 % (0-9); NEUT # 5.8 x10^3uL (1.8-7.7); NEUT % 87 % (31-73); PLATELET COUNT 154 x10^3/uL (140-400); RED BLOOD COUNT 3.47 x10^6/uL (4.30-5.70); WHITE BLOOD COUNT 6.7 x10^3/uL (4.0-11.0)
[2018-05-27 05:07] LABS: ALBUMIN 2.8 g/dL (3.4-5.0); CALCIUM 8.3 mg/dL (8.5-10.1); CREATININE 0.8 mg/dL (0.7-1.3); GFR 120.1; POTASSIUM 3.6 mmol/L (3.5-5.1); TOTAL BILIRUBIN 0.3 mg/dL (0.2-1.0); TOTAL PROTEIN 5.7 g/dL (6.4-8.2)
[2018-05-27 07:04] VITALS: BP 129/86
[2018-05-27] MEDS: BUDESONIDE 0.5 MG/2 ML NEBU. NEB SCH ×2 (07:53→19:30)
[2018-05-27] MEDS: CHOLECALCIFEROL (VITAMIN D3) 5,000 UNIT CAPSULE PO SCH (08:26)
[2018-05-27] MEDS: ERYTHROMYCIN BASE 250 MG TABLET PO SCH (08:26)
[2018-05-27] MEDS: POTASSIUM CHLORIDE 20 MEQ TABLET.ER. PO SCH (08:26)
[2018-05-27] MEDS: ALPRAZolam 0.5 MG TABLET PO SCH ×2 (08:27→20:45)
[2018-05-27] MEDS: PANTOPRAZOLE 40 MG TABLET.DR. PO SCH (08:27)
[2018-05-27] MEDS: predniSONE 20 MG TABLET PO SCH (08:27)
[2018-05-27] MEDS: MELOXICAM 7.5 MG TABLET PO SCH (08:27)
[2018-05-27] MEDS: LACTOBACILLUS RHAMNOSUS GG 1 CAPSULE. PO SCH ×2 (08:27→20:45)
[2018-05-27] MEDS: METOCLOPRAMIDE 10 MG TABLET. PO SCH ×4 (08:27→20:45)
[2018-05-27] MEDS: FLUTICASONE 50MCG/NASAL SPRAY 16GM BOTTLE. NS SCH (08:28)
[2018-05-27] MEDS: DOXYCYCLINE HYCLATE 100 MG in IV DEXTROSE 5% 100ML 100 ML IV SCH ×2 (08:28→21:31)
[2018-05-27] MEDS: traMADol 50 MG TABLET PO PRN ×2 (08:30→14:39)
--- NOTE | 2018-05-27 09:33 | PDOC ---
PROGRESS NOTES History of Present Illness History of Present Illness VTE Prophylaxis Ordered VTE Prophylaxis Devices: Yes VTE Pharmacological Prophylaxi: Yes Assessment/Plan Assessment/Plan impression/ plan Acute on chronic respiratory failure - will give steroids, qid nebs Left ventricle systolic function is low normal. The Ejection Fraction is 50%. Transmitral Doppler flow pattern is Grade [id number] filling dynamics. The left atrium size is normal. COPD with exacerbation and acute bronchitis - iv doxycycline, consult pulm. Needs bullectomy consideration at [facility] as has previously been discussed Severe emphysema with large bulla at the left apex, recent ct Patchy ground-glass opacity throughout both lungs with some increasing reticulonodular opacity along the bronchovascular bundles of the lower lobes. Consider infectious or inflammatory processes or chronic aspiration. Dysphagia with prior history of Rosanne esophagitis - hypertension CHF chronic combined, EF 50% acute exacerbation, GERD - cont PPI1. reflux to the level of the upper-mid thoracic esophagus. Anemia - of chronic disease. Avoid nephrotoxic meds, IVF CHRONIC HYPERCAPNIC RESP FAILURE Lactic acidosis sec volume depletion Chronic sinusitis NORMOCYTIC ANEMIA plan blood cult pulm consult duonebs qid o2 support iv doxycycline 100mg bid, rocephin IV Q 24 HRS 1 GM dvt prophylaxis HOB AT 30 DEGREES to avoid reflux FOLLOW LACTIC ACID TELE ECHO abg ID CONSULT 42 MIN PT EXAM, CHART REVIEW,> 50% OF time spent with exam, chart review, pt care coordination Vitals Vitals Vital Signs Date Time Temp Pulse Resp B/P (MAP) Pulse Ox O2 Delivery O2 Flow Rate FiO2 05/27/18 08:30 18 Nasal Cannula 3.0 05/27/18 07:55 97 05/27/18 07:04 97.9 100 129/86 (100) 97.9 Physical Exam General: Alert, Oriented X3, Cooperative, mild distress Heart: Regular rate, No murmurs Lungs: Wheezing, Crackles Abdomen: Soft Extremities: No cyanosis Skin: No significant lesion Labs LABS Laboratory Tests Test 05/26/18 12:30 05/26/18 18:47 05/26/18 23:20 05/27/18 03:55 Influenza Type A Antigen Negative (NEGATIVE) Influenza Type B Antigen Negative (NEGATIVE) Glucose (Fingerstick) 186 mg/dL (70-99) 239 mg/dL (70-99) White Blood Count 6.7 x10^3/uL (4.0-11.0) Red Blood Count 3.47 x10^6/uL (4.30-5.70) Hemoglobin 10.6 g/dL (13.0-17.5) Hematocrit 32.0 % (39.0-53.0) Mean Corpuscular Volume 92 fL (79-100) Mean Corpuscular Hemoglobin 31 pg (25-35) Mean Corpuscular Hemoglobin Concent 33 g/dL (31-37) Red Cell Distribution Width 16.0 % (11.5-14.5) Platelet Count 154 x10^3/uL (140-400) Neutrophils (%) (Auto) 87 % (31-73) Lymphocytes (%) (Auto) 6 % (24-48) Monocytes (%) (Auto) 7 % (0-9) Eosinophils (%) (Auto) 0 % (0-3) Basophils (%) (Auto) 0 % (0-3) Neutrophils # (Auto) 5.8 x10^3uL (1.8-7.7) Lymphocytes # (Auto) 0.4 x10^3/uL (1.0-4.8) Monocytes # (Auto) 0.5 x10^3/uL (0.0-1.1) Eosinophils # (Auto) 0.0 x10^3/uL (0.0-0.7) Basophils # (Auto) 0.0 x10^3/uL (0.0-0.2) Sodium Level 144 mmol/L (136-145) Potassium Level 3.6 mmol/L (3.5-5.1) Chloride Level 106 mmol/L (98-107) Carbon Dioxide Level 30 mmol/L (21-32) Anion Gap 8 (6-14) Blood Urea Nitrogen 15 mg/dL (8-26) Creatinine 0.8 mg/dL (0.7-1.3) Estimated GFR (Cockcroft-Gault) 120.1 BUN/Creatinine Ratio 19 (6-20) Glucose Level 233 mg/dL (70-99) Calcium Level 8.3 mg/dL (8.5-10.1) Total Bilirubin 0.3 mg/dL (0.2-1.0) Aspartate Amino Transf (AST/SGOT) 15 U/L (15-37) Alanine Aminotransferase (ALT/SGPT) 27 U/L (16-63) Alkaline Phosphatase 110 U/L (46-116) Total Protein 5.7 g/dL (6.4-8.2) Albumin 2.8 g/dL (3.4-5.0) Albumin/Globulin Ratio 1.0 (1.0-1.7) Test 05/27/18 07:05 Glucose (Fingerstick) 186 mg/dL (70-99) Assessment and Plan Assessmemt and Plan Problems Medical Problems: (1) COPD exacerbation Status: Acute (2) Severe sepsis Status: Acute Comment Review of Relevant I have reviewed the following items franki (where applicable) has been applied. Labs Laboratory Tests Test 05/25/18 13:20 05/25/18 16:25 05/25/18 18:00 05/26/18 07:55 White Blood Count 7.8 x10^3/uL (4.0-11.0) 7.5 x10^3/uL (4.0-11.0) Red Blood Count 3.97 x10^6/uL (4.30-5.70) 3.57 x10^6/uL (4.30-5.70) Hemoglobin 12.0 g/dL (13.0-17.5) 10.7 g/dL (13.0-17.5) Hematocrit 36.6 % (39.0-53.0) 32.4 % (39.0-53.0) Mean Corpuscular Volume 92 fL (79-100) 91 fL (79-100) Mean Corpuscular Hemoglobin 30 pg (25-35) 30 pg (25-35) Mean Corpuscular Hemoglobin Concent 33 g/dL (31-37) 33 g/dL (31-37) Red Cell Distribution Width 16.0 % (11.5-14.5) 15.9 % (11.5-14.5) Platelet Count 212 x10^3/uL (140-400) 166 x10^3/uL (140-400) Neutrophils (%) (Auto) 92 % (31-73) 88 % (31-73) Lymphocytes (%) (Auto) 5 % (24-48) 5 % (24-48) Monocytes (%) (Auto) 3 % (0-9) 7 % (0-9) Eosinophils (%) (Auto) 0 % (0-3) 0 % (0-3) Basophils (%) (Auto) 0 % (0-3) 0 % (0-3) Neutrophils # (Auto) 7.3 x10^3uL (1.8-7.7) 6.6 x10^3uL (1.8-7.7) Lymphocytes # (Auto) 0.4 x10^3/uL (1.0-4.8) 0.4 x10^3/uL (1.0-4.8) Monocytes # (Auto) 0.2 x10^3/uL (0.0-1.1) 0.5 x10^3/uL (0.0-1.1) Eosinophils # (Auto) 0.0 x10^3/uL (0.0-0.7) 0.0 x10^3/uL (0.0-0.7) Basophils # (Auto) 0.0 x10^3/uL (0.0-0.2) 0.0 x10^3/uL (0.0-0.2) Segmented Neutrophils % 91 % (35-66) Band Neutrophils % 1 % (0-9) Lymphocytes % 7 % (24-48) Monocytes % 1 % (0-10) Nucleated Red Blood Cells 2 Platelet Estimate Adequate (ADEQUATE) Anisocytosis Slight D-Dimer ([place]) 0.77 ug/mlFEU (0.00-0.50) Sodium Level 141 mmol/L (136-145) 140 mmol/L (136-145) Potassium Level 4.1 mmol/L (3.5-5.1) 4.2 mmol/L (3.5-5.1) Chloride Level 100 mmol/L (98-107) 101 mmol/L (98-107) Carbon Dioxide Level 32 mmol/L (21-32) 31 mmol/L (21-32) Anion Gap 9 (6-14) 8 (6-14) Blood Urea Nitrogen 14 mg/dL (8-26) 16 mg/dL (8-26) Creatinine 1.2 mg/dL (0.7-1.3) 0.9 mg/dL (0.7-1.3) Estimated GFR (Cockcroft-Gault) 75.2 104.9 BUN/Creatinine Ratio 12 (6-20) 18 (6-20) Glucose Level 153 mg/dL (70-99) 127 mg/dL (70-99) Lactic Acid Level 4.4 mmol/L (0.4-2.0) 2.2 mmol/L (0.4-2.0) Calcium Level 9.1 mg/dL (8.5-10.1) 8.4 mg/dL (8.5-10.1) Magnesium Level 2.0 mg/dL (1.8-2.4) Total Bilirubin 0.7 mg/dL (0.2-1.0) 0.5 mg/dL (0.2-1.0) Aspartate Amino Transf (AST/SGOT) 22 U/L (15-37) 16 U/L (15-37) Alanine Aminotransferase (ALT/SGPT) 37 U/L (16-63) 31 U/L (16-63) Alkaline Phosphatase 116 U/L (46-116) 98 U/L (46-116) Creatine Kinase 140 U/L (39-308) Troponin I Quantitative 0.026 ng/mL (0.000-0.055) GF-Ifg-P-Type Natriuretic Peptide 198 pg/mL (0-124) Total Protein 7.1 g/dL (6.4-8.2) 5.9 g/dL (6.4-8.2) Albumin 3.6 g/dL (3.4-5.0) 3.0 g/dL (3.4-5.0) Albumin/Globulin Ratio 1.0 (1.0-1.7) 1.0 (1.0-1.7) Urine Collection Type Unknown Urine Color Yellow Urine Clarity Clear Urine pH 6.5 Urine Specific [place] 1.025 Urine Protein Negative mg/dL (NEG-TRACE) Urine Glucose (UA) 100 mg/dL (NEG) Urine Ketones (Stick) Negative mg/dL (NEG) Urine Blood Negative (NEG) Urine Nitrite Negative (NEG) Urine Bilirubin Negative (NEG) Urine Urobilinogen Dipstick 1.0 mg/dL (0.2 mg/dL) Urine Leukocyte Esterase Negative (NEG) Urine RBC 1-2 /HPF (0-2) Urine WBC Occ /HPF (0-4) Urine Squamous Epithelial Cells Few /LPF Urine Bacteria 0 /HPF (0-FEW) Urine Hyaline Casts Moderate /HPF Urine Mucus Mod /LPF Urine Opiates Screen Neg (NEG) Urine Methadone Screen Neg (NEG) Urine Barbiturates Neg (NEG) Urine Phencyclidine Screen Neg (NEG) Urine Amphetamine/Methamphetamine Neg (NEG) Urine Benzodiazepines Screen Neg (NEG) Urine Cocaine Screen Neg (NEG) Urine Cannabinoids Screen Neg (NEG) Urine Ethyl Alcohol Neg (NEG) Test 05/26/18 12:30 05/26/18 18:47 05/26/18 23:20 05/27/18 03:55 Influenza Type A Antigen Negative (NEGATIVE) Influenza Type B Antigen Negative (NEGATIVE) Glucose (Fingerstick) 186 mg/dL (70-99) 239 mg/dL (70-99) White Blood Count 6.7 x10^3/uL (4.0-11.0) Red Blood Count 3.47 x10^6/uL (4.30-5.70) Hemoglobin 10.6 g/dL (13.0-17.5) Hematocrit 32.0 % (39.0-53.0) Mean Corpuscular Volume 92 fL (79-100) Mean Corpuscular Hemoglobin 31 pg (25-35) Mean Corpuscular Hemoglobin Concent 33 g/dL (31-37) Red Cell Distribution Width 16.0 % (11.5-14.5) Platelet Count 154 x10^3/uL (140-400) Neutrophils (%) (Auto) 87 % (31-73) Lymphocytes (%) (Auto) 6 % (24-48) Monocytes (%) (Auto) 7 % (0-9) Eosinophils (%) (Auto) 0 % (0-3) Basophils (%) (Auto) 0 % (0-3) Neutrophils # (Auto) 5.8 x10^3uL (1.8-7.7) Lymphocytes # (Auto) 0.4 x10^3/uL (1.0-4.8) Monocytes # (Auto) 0.5 x10^3/uL (0.0-1.1) Eosinophils # (Auto) 0.0 x10^3/uL (0.0-0.7) Basophils # (Auto) 0.0 x10^3/uL (0.0-0.2) Sodium Level 144 mmol/L (136-145) Potassium Level 3.6 mmol/L (3.5-5.1) Chloride Level 106 mmol/L (98-107) Carbon Dioxide Level 30 mmol/L (21-32) Anion Gap 8 (6-14) Blood Urea Nitrogen 15 mg/dL (8-26) Creatinine 0.8 mg/dL (0.7-1.3) Estimated GFR (Cockcroft-Gault) 120.1 BUN/Creatinine Ratio 19 (6-20) Glucose Level 233 mg/dL (70-99) Calcium Level 8.3 mg/dL (8.5-10.1) Total Bilirubin 0.3 mg/dL (0.2-1.0) Aspartate Amino Transf (AST/SGOT) 15 U/L (15-37) Alanine Aminotransferase (ALT/SGPT) 27 U/L (16-63) Alkaline Phosphatase 110 U/L (46-116) Total Protein 5.7 g/dL (6.4-8.2) Albumin 2.8 g/dL (3.4-5.0) Albumin/Globulin Ratio 1.0 (1.0-1.7) Test 05/27/18 07:05 Glucose (Fingerstick) 186 mg/dL (70-99) Laboratory Tests Test 05/26/18 12:30 05/26/18 18:47 05/26/18 23:20 05/27/18 03:55 Influenza Type A Antigen Negative (NEGATIVE) Influenza Type B Antigen Negative (NEGATIVE) Glucose (Fingerstick) 186 mg/dL (70-99) 239 mg/dL (70-99) White Blood Count 6.7 x10^3/uL (4.0-11.0) Red Blood Count 3.47 x10^6/uL (4.30-5.70) Hemoglobin 10.6 g/dL (13.0-17.5) Hematocrit 32.0 % (39.0-53.0) Mean Corpuscular Volume 92 fL (79-100) Mean Corpuscular Hemoglobin 31 pg (25-35) Mean Corpuscular Hemoglobin Concent 33 g/dL (31-37) Red Cell Distribution Width 16.0 % (11.5-14.5) Platelet Count 154 x10^3/uL (140-400) Neutrophils (%) (Auto) 87 % (31-73) Lymphocytes (%) (Auto) 6 % (24-48) Monocytes (%) (Auto) 7 % (0-9) Eosinophils (%) (Auto) 0 % (0-3) Basophils (%) (Auto) 0 % (0-3) Neutrophils # (Auto) 5.8 x10^3uL (1.8-7.7) Lymphocytes # (Auto) 0.4 x10^3/uL (1.0-4.8) Monocytes # (Auto) 0.5 x10^3/uL (0.0-1.1) Eosinophils # (Auto) 0.0 x10^3/uL (0.0-0.7) Basophils # (Auto) 0.0 x10^3/uL (0.0-0.2) Sodium Level 144 mmol/L (136-145) Potassium Level 3.6 mmol/L (3.5-5.1) Chloride Level 106 mmol/L (98-107) Carbon Dioxide Level 30 mmol/L (21-32) Anion Gap 8 (6-14) Blood Urea Nitrogen 15 mg/dL (8-26) Creatinine 0.8 mg/dL (0.7-1.3) Estimated GFR (Cockcroft-Gault) 120.1 BUN/Creatinine Ratio 19 (6-20) Glucose Level 233 mg/dL (70-99) Calcium Level 8.3 mg/dL (8.5-10.1) Total Bilirubin 0.3 mg/dL (0.2-1.0) Aspartate Amino Transf (AST/SGOT) 15 U/L (15-37) Alanine Aminotransferase (ALT/SGPT) 27 U/L (16-63) Alkaline Phosphatase 110 U/L (46-116) Total Protein 5.7 g/dL (6.4-8.2) Albumin 2.8 g/dL (3.4-5.0) Albumin/Globulin Ratio 1.0 (1.0-1.7) Test 05/27/18 07:05 Glucose (Fingerstick) 186 mg/dL (70-99) Microbiology 05/25/18 Blood Culture - Preliminary, Resulted NO GROWTH AFTER 1 DAY Medications Current Medications Sodium Chloride 1,000 ml @ 1,000 mls/hr Q1H IV Last administered on 05/25/18at 13:48; Start 05/25/18 at 13:22; Stop 05/25/18 at 14:21; Status DC Albuterol/ Ipratropium (Duoneb) 3 ml 1X ONCE NEB Last administered on at 13:57; Start 05/25/18 at 13:30; Stop 05/25/18 at 13:31; Status DC Methylprednisolone Sodium Succinate (SOLU-Medrol 125MG VIAL) 125 mg 1X ONCE IV Last administered on 05/25/18at 13:47; Start 05/25/18 at 13:30; Stop 05/25/18 at 13:31; Status DC Ceftriaxone Sodium (Rocephin) 1 gm 1X ONCE IVP ; Start 05/25/18 at 14:15; Stop 05/25/18 at 14:15; Status DC Piperacillin Sod/ Tazobactam Sod 3.375 gm/Sodium Chloride 50 ml @ 100 mls/hr 1X ONCE IV Last administered on 05/25/18at 15:02; Start 05/25/18 at 14:15; Stop 05/25/18 at 14:44; Status DC Vancomycin HCl 250 ml @ 250 mls/hr 1X ONCE IV ; Start 05/25/18 at 14:15; Stop 05/25/18 at 15:14; Status DC Sodium Chloride 1,000 ml @ 1,000 mls/hr 1X ONCE IV ; Start 05/25/18 at 14:15; Stop 05/25/18 at 15:14; Status DC Sodium Chloride 1,000 ml @ 1,000 mls/hr 1X ONCE IV ; Start 05/25/18 at 14:15; Stop 05/25/18 at 15:14; Status DC Sodium Chloride 1,000 ml @ 150 mls/hr Q6H40M IV Last administered on at 17:58; Start 05/25/18 at 14:21; Stop 05/26/18 at 14:20; Status DC Albuterol Sulfate (Ventolin Neb Soln) 2.5 mg PRN Q4HRS PRN NEB SHORTNESS OF BREATH Last administered on 05/25/18at 16:16; Start 05/25/18 at 15:30 Alprazolam (Xanax) 0.5 mg BID PO Last administered on 05/27/18at 08:27; Start at 21:00 Atorvastatin Calcium (Lipitor) 10 mg HS PO Last administered on 05/26/18 22:00 ; Start 05/25/18 at 21:00 Erythromycin (E-Mycin) 250 mg DAILY PO Last administered on 05/27/18 08:26; Start 05/26/18 at 09:00 Metoclopramide HCl (Reglan) 5 mg QID PO Last administered on 05/27/18 08:27; Start 05/25/18 at 17:00 Prednisone (Prednisone) 40 mg DAILY PO Last administered on 05/27/18 08:27; Start 05/26/18 at 09:00 Tramadol HCl (Ultram) 50 mg PRN Q6HRS PRN PO PAIN Last administered on 08:30; Start 05/25/18 at 15:30 Albuterol Sulfate (Ventolin Neb Soln) 2.5 mg Q4HRS NEB Last administered on 07:53; Start 05/25/18 at 20:00 Budesonide (Pulmicort) 0.5 mg RTBID NEB Last administered on 05/27/18 07:53; Start 05/25/18 at 20:00 Vitamin D (Vitamin D3) 5,000 unit DAILY PO Last administered on 05/27/18 08:26 ; Start 05/26/18 at 09:00 Cyclobenzaprine HCl (Flexeril) 5 mg PRN TID PRN PO MUSCLE SPASMS Last administered on 05/26/18 21:59; Start 05/25/18 at 16:00 Fluticasone Propionate (Flonase) 2 spray DAILY NS Last administered on 08:38; Start 05/26/18 at 09:00 Meloxicam (Mobic) 7.5 mg DAILY PO Last administered on 05/27/18 08:27; Start 05/26/18 at 09:00 Potassium Chloride (Klor-Con) 20 meq [id number] PO Last administered on 08:26; Start 05/26/18 at 08:00 Non-Formulary Medication (Tizanidine Hcl ) 4 mg QID PRN PO MUSCLE SPASMS; Start 05/25/18 at 15:30; Stop 05/25/18 at 16:44; Status DC Doxycycline Hyclate 100 mg/ Dextrose 100 ml @ 50 mls/hr Q12HR IV Last administered on 05/27/18at 08:28; Start 05/25/18 at 16:00 Sodium Chloride 1,000 ml @ 125 mls/hr 1X ONCE IV Last administered on at 18:20; Start 05/25/18 at 15:30; Stop 05/25/18 at 23:29; Status DC Enoxaparin Sodium (Lovenox 40mg Syringe) 40 mg Q24H SQ Last administered on at 18:21; Start 05/25/18 at 16:00 Sodium Chloride (Normal Saline Flush 3ml) 3 ml QSHIFT PRN IV AFTER MEDS AND BLOOD DRAWS; Start 05/25/18 at 15:45 Ondansetron HCl (Zofran) 4 mg PRN Q4HRS PRN IV NAUSEA/VOMITING; Start 05/25/18 at 15:45 Zolpidem Tartrate (Ambien) 5 mg PRN QHS PRN PO INSOMNIA; Start 05/25/18 at 15: 45 Acetaminophen (Tylenol) 650 mg PRN Q4HRS PRN PO TEMP OVER 100.4F OR MILD PAIN; Start 05/25/18 at 15:45 Al Hydroxide/Mg Hydroxide (Mylanta Plus Xs) 30 ml PRN DAILY PRN PO HEARTBURN / GAS; Start 05/25/18 at 15:45 Clonidine HCl (Catapres) 0.1 mg PRN Q6HRS PRN PO SBP>160 OR DBP>90; Start 05/25 at 15:45 Docusate Sodium (Colace) 100 mg PRN BID PRN PO CONSTIPATION; Start 05/25/18 at 15:45 Guaifenesin (Robitussin) 200 mg PRN Q4HRS PRN PO COUGH; Start 05/25/18 at 15:45 Lorazepam (Ativan) 0.5 mg PRN Q4HRS PRN PO ANXIETY / AGITATION; Start 05/25/18 at 15:45 Ceftriaxone Sodium (Rocephin) 1 gm Q24H IVP Last administered on 05/26/18at 12: 29; Start 05/26/18 at 13:00 Pantoprazole Sodium (Protonix) 40 mg DAILYAC PO Last administered on 05/27/18at 08:27; Start 05/26/18 at 13:00 Enoxaparin Sodium (Lovenox 40mg Syringe) 40 mg Q24H SQ ; Start 05/26/18 at 08:30 ; Status UNV Lactobacillus Rhamnosus (Culturelle) 1 cap BID PO Last administered on at 08:27; Start 05/26/18 at 21:00 Active Scripts Active Prednisone 50 Mg Tablet 1 Tab PO DAILY Ventolin Hfa Inhaler (Albuterol Sulfate) 18 Gm Hfa.aer.ad 2 Puff INH Q4HRS Tramadol Hcl 50 Mg Tablet 50 Mg PO Q6HRS PRN Prednisone 20 Mg Tablet 1 Tab PO DAILY Tramadol Hcl 50 Mg Tablet 50-100 Mg PO PRN Q6HRS PRN 6 Days Doxycycline Hyclate 100 Mg Capsule 1 Cap PO BID Medrol (Methylprednisolone) 4 Mg Tab.ds.pk 1 Pkg PO UD Mobic (Meloxicam) 7.5 Mg Tablet 1-2 Tab PO DAILY 5 Days Cyclobenzaprine Hcl 5 Mg Tablet 5 Mg PO PRN TID PRN Prednisone 50 Mg Tablet 1 Tab PO DAILY Reglan (Metoclopramide Hcl) 10 Mg Tablet 0.5 Tab PO QID 30 Days Xanax (Alprazolam) 0.5 Mg Tablet 1 Tab PO BID Prednisone 20 Mg Tablet 40 Mg PO DAILY Furosemide 20 Mg Tablet 1 Tab PO DAILY Albuterol Sulfate Neb Soln (Albuterol Sulfate) 2.5 Mg/3 Ml Vial.neb 1 Vial NEB PRN Q4HRS Reported Erythromycin (Erythromycin Base) 250 Mg Tablet 250 Mg PO DAILY Vitamin D3 (Cholecalciferol (Vitamin D3)) 5,000 Unit Tablet 5,000 Unit PO DAILY Potassium Chloride 20 Meq Tablet.er 20 Meq PO DAILY Protonix (Pantoprazole Sodium) 20 Mg Tablet.dr 1 Tab PO DAILY Flonase Allergy Relief (Fluticasone Propionate) 9.9 Ml [place].susp 2 Sprays NS DAILY Atorvastatin Calcium 10 Mg Tablet 10 Mg PO HS Symbicort 160-4.5 Mcg Inhaler (Budesonide/Formoterol Fumarate) 10.2 Gm Hfa.aer.ad 2 Puff IH BID Spiriva (Tiotropium [place]) 18 Mcg Cap.w.dev 2 Inh IH DAILY Vitals/I & O Vital Sign - Last 24 Hours 05/26/18 05/26/18 05/26/18 05/26/18 10:06 11:00 11:06 12:05 Temp 98.7 98.7 Pulse 118 Resp 16 20 17 B/P (MAP) 148/92 (110) Pulse Ox 94 O2 Delivery Nasal Cannula Room Air Nasal Cannula Nasal Cannula O2 Flow Rate 3.0 3.0 3.0 05/26/18 05/26/18 05/26/18 05/26/18 15:00 16:25 19:58 20:00 Temp 97.7 98.5 97.7 98.5 Pulse 92 109 Resp 18 20 B/P (MAP) 121/79 (93) 123/76 (92) Pulse Ox 98 99 93 O2 Delivery Nasal Cannula Nasal Cannula Nasal Cannula Nasal Cannula O2 Flow Rate 3.0 3.0 3.0 3.0 05/26/18 05/26/18 05/26/18 05/26/18 20:23 20:24 23:39 23:56 Temp 98.3 98.3 Pulse 128 Resp 20 B/P (MAP) 138/85 (102) Pulse Ox 97 97 97 96 O2 Delivery Nasal Cannula Nasal Cannula Nasal Cannula Nasal Cannula O2 Flow Rate 2.0 2.0 2.0 3.0 05/27/18 05/27/18 05/27/18 05/27/18 03:36 03:41 07:04 07:55 Temp 98.4 97.9 98.4 97.9 Pulse 118 100 Resp 20 20 B/P (MAP) 134/72 (92) 129/86 (100) Pulse Ox 97 96 98 97 O2 Delivery Nasal Cannula Nasal Cannula Nasal Cannula Nasal Cannula O2 Flow Rate 2.0 3.0 3.0 2.0 05/27/18 08:30 Resp 18 O2 Delivery Nasal Cannula O2 Flow Rate 3.0 Intake and Output 05/26/18 05/26/18 05/27/18 14:59 22:59 06:59 Intake Total 200 ml 690 ml Output Total 300 ml 450 ml Balance -100 ml 240 ml TOMAS BAIG MD May 27, 2018 09:33
[2018-05-27 10:33] VITALS: BP 112/76
--- NOTE | 2018-05-27 11:14 | PDOC ---
Infectious Disease Note Subjective: Subjective pt says feels a little better sob and cough are improving Vital Signs: Vital Signs Vital Signs Date Time Temp Pulse Resp B/P (MAP) Pulse Ox O2 Delivery O2 Flow Rate FiO2 05/27/18 10:33 97.7 115 19 112/76 (88) 100 Nasal Cannula 3.0 97.7 Physical Exam: PHYSICAL EXAM GENERAL: The patient is slightly propped up in bed, alert, relaxed appearance. HEENT: Pupils equally round. Normal conjunctivae. Oral cavity: Pharynx pink and dry. NECK: Supple. LUNGS: Diminished aeration throughout. HEART: S1, S2. ABDOMEN: Obese, soft, nontender with bowel sounds present. EXTREMITIES: 2+ edema in lower extremities bilaterally. No cyanosis. SKIN: Warm and dry. NEUROLOGIC: Alert and responds appropriately. Medications: Inpatient Meds: Current Medications Medications (Trade) Dose Ordered Sig/Candy Start Time Stop Time Status Last Admin Dose Admin Acetaminophen (Tylenol) 650 mg PRN Q4HRS PRN 05/25/18 15:45 Al Hydroxide/Mg Hydroxide (Mylanta Plus Xs) 30 ml PRN DAILY PRN 05/25/18 15:45 Albuterol Sulfate (Ventolin Neb Soln) 2.5 mg Q4HRS 05/25/18 20:00 05/27/18 07:53 2.5 MG Albuterol/ Ipratropium (Duoneb) 3 ml 1X ONCE 05/25/18 13:30 05/25/18 13:31 DC 05/25/18 13:57 3 ML Alprazolam (Xanax) 0.5 mg BID 05/25/18 21:00 05/27/18 08:27 0.5 MG Atorvastatin Calcium (Lipitor) 10 mg HS 05/25/18 21:00 05/26/18 22:00 10 MG Budesonide (Pulmicort) 0.5 mg RTBID 05/25/18 20:00 05/27/18 07:53 0.5 MG Ceftriaxone Sodium (Rocephin) 1 gm Q24H 05/26/18 13:00 05/26/18 12:29 1 GM Clonidine HCl (Catapres) 0.1 mg PRN Q6HRS PRN 05/25/18 15:45 Cyclobenzaprine HCl (Flexeril) 5 mg PRN TID PRN 05/25/18 16:00 05/26/18 21:59 5 MG Docusate Sodium (Colace) 100 mg PRN BID PRN 05/25/18 15:45 Doxycycline Hyclate 100 mg/ Dextrose 100 ml @ 50 mls/hr Q12HR 05/25/18 16:00 05/27/18 08:28 50 MLS/HR Enoxaparin Sodium (Lovenox 40mg Syringe) 40 mg Q24H 05/26/18 08:30 UNV Erythromycin (E-Mycin) 250 mg DAILY 05/26/18 09:00 05/27/18 08:26 250 MG Fluticasone Propionate (Flonase) 2 spray DAILY 05/26/18 09:00 05/26/18 08:38 2 SPRAY Guaifenesin (Robitussin) 200 mg PRN Q4HRS PRN 05/25/18 15:45 Lactobacillus Rhamnosus (Culturelle) 1 cap BID 05/26/18 21:00 05/27/18 08:27 1 CAP Lorazepam (Ativan) 0.5 mg PRN Q4HRS PRN 05/25/18 15:45 Meloxicam (Mobic) 7.5 mg DAILY 05/26/18 09:00 05/27/18 08:27 7.5 MG Methylprednisolone Sodium Succinate (SOLU-Medrol 125MG VIAL) 125 mg 1X ONCE 05/25/18 13:30 05/25/18 13:31 DC 05/25/18 13:47 125 MG Metoclopramide HCl (Reglan) 5 mg QID 05/25/18 17:00 05/27/18 08:27 5 MG Non-Formulary Medication (Tizanidine Hcl ) 4 mg QID PRN 05/25/18 15:30 05/25/18 16:44 DC Ondansetron HCl (Zofran) 4 mg PRN Q4HRS PRN 05/25/18 15:45 Pantoprazole Sodium (Protonix) 40 mg DAILYAC 05/26/18 13:00 05/27/18 08:27 40 MG Piperacillin Sod/ Tazobactam Sod 3.375 gm/Sodium Chloride 50 ml @ 100 mls/hr 1X ONCE 05/25/18 14:15 05/25/18 14:44 DC 05/25/18 15:02 100 MLS/HR Potassium Chloride (Klor-Con) 20 meq [id number] 05/26/18 08:00 05/27/18 08:26 20 MEQ Prednisone (Prednisone) 40 mg DAILY 05/26/18 09:00 05/27/18 08:27 40 MG Sodium Chloride (Normal Saline Flush 3ml) 3 ml QSHIFT PRN 05/25/18 15:45 Tramadol HCl (Ultram) 50 mg PRN Q6HRS PRN 05/25/18 15:30 05/27/18 08:30 50 MG Vancomycin HCl 250 ml @ 250 mls/hr 1X ONCE 05/25/18 14:15 05/25/18 15:14 DC Vitamin D (Vitamin D3) 5,000 unit DAILY 05/26/18 09:00 05/27/18 08:26 5,000 UNIT Zolpidem Tartrate (Ambien) 5 mg PRN QHS PRN 05/25/18 15:45 Labs: Lab Laboratory Tests Test 05/26/18 12:30 05/26/18 18:47 05/26/18 23:20 05/27/18 03:55 Influenza Type A Antigen Negative (NEGATIVE) Influenza Type B Antigen Negative (NEGATIVE) Glucose (Fingerstick) 186 mg/dL (70-99) 239 mg/dL (70-99) White Blood Count 6.7 x10^3/uL (4.0-11.0) Red Blood Count 3.47 x10^6/uL (4.30-5.70) Hemoglobin 10.6 g/dL (13.0-17.5) Hematocrit 32.0 % (39.0-53.0) Mean Corpuscular Volume 92 fL (79-100) Mean Corpuscular Hemoglobin 31 pg (25-35) Mean Corpuscular Hemoglobin Concent 33 g/dL (31-37) Red Cell Distribution Width 16.0 % (11.5-14.5) Platelet Count 154 x10^3/uL (140-400) Neutrophils (%) (Auto) 87 % (31-73) Lymphocytes (%) (Auto) 6 % (24-48) Monocytes (%) (Auto) 7 % (0-9) Eosinophils (%) (Auto) 0 % (0-3) Basophils (%) (Auto) 0 % (0-3) Neutrophils # (Auto) 5.8 x10^3uL (1.8-7.7) Lymphocytes # (Auto) 0.4 x10^3/uL (1.0-4.8) Monocytes # (Auto) 0.5 x10^3/uL (0.0-1.1) Eosinophils # (Auto) 0.0 x10^3/uL (0.0-0.7) Basophils # (Auto) 0.0 x10^3/uL (0.0-0.2) Sodium Level 144 mmol/L (136-145) Potassium Level 3.6 mmol/L (3.5-5.1) Chloride Level 106 mmol/L (98-107) Carbon Dioxide Level 30 mmol/L (21-32) Anion Gap 8 (6-14) Blood Urea Nitrogen 15 mg/dL (8-26) Creatinine 0.8 mg/dL (0.7-1.3) Estimated GFR (Cockcroft-Gault) 120.1 BUN/Creatinine Ratio 19 (6-20) Glucose Level 233 mg/dL (70-99) Calcium Level 8.3 mg/dL (8.5-10.1) Total Bilirubin 0.3 mg/dL (0.2-1.0) Aspartate Amino Transf (AST/SGOT) 15 U/L (15-37) Alanine Aminotransferase (ALT/SGPT) 27 U/L (16-63) Alkaline Phosphatase 110 U/L (46-116) Total Protein 5.7 g/dL (6.4-8.2) Albumin 2.8 g/dL (3.4-5.0) Albumin/Globulin Ratio 1.0 (1.0-1.7) Test 05/27/18 07:05 Glucose (Fingerstick) 186 mg/dL (70-99) Objective: Assessment: Acute on chronic respiratory failure, O2 dependent 3L Exacerbation COPD Bullous emphysema Lactic acidosis HTN Plan: Plan of Care Doxy and Rocephin Sputum culture Influenza screen BC pending Supportive care WARNER GONZALEZ MD May 27, 2018 11:14
[2018-05-27] MEDS ORDERED: DEXTROSE 50% 25 GM / 50ML DISP.SYRIN. IV PRN (11:45)
[2018-05-27] MEDS: cefTRIAXone IV Push 1 GM VIAL. IVP SCH (11:51)
[2018-05-27] MEDS: INSULIN LISPRO 300 UNITS/3 ML INSULN.PEN. SQ SCH ×2 (11:56→17:00)
--- NOTE | 2018-05-27 13:35 | PDOC ---
PULMONARY PROGRESS NOTES Subjective feels better Vitals Vital Signs Date Time Temp Pulse Resp B/P (MAP) Pulse Ox O2 Delivery O2 Flow Rate FiO2 05/27/18 11:33 99 Nasal Cannula 2.0 05/27/18 10:33 97.7 115 19 112/76 (88) 97.7 General: Alert, No acute distress Lungs: Other Cardiovascular: S1, S2 Abdomen: Soft, Non-tender Neuro Exam: Alert Extremities: No Edema, Other Skin: Warm Labs Laboratory Tests Test 05/25/18 16:25 05/25/18 18:00 05/26/18 07:55 05/26/18 12:30 Lactic Acid Level 2.2 mmol/L (0.4-2.0) Urine Collection Type Unknown Urine Color Yellow Urine Clarity Clear Urine pH 6.5 Urine Specific [place] 1.025 Urine Protein Negative mg/dL (NEG-TRACE) Urine Glucose (UA) 100 mg/dL (NEG) Urine Ketones (Stick) Negative mg/dL (NEG) Urine Blood Negative (NEG) Urine Nitrite Negative (NEG) Urine Bilirubin Negative (NEG) Urine Urobilinogen Dipstick 1.0 mg/dL (0.2 mg/dL) Urine Leukocyte Esterase Negative (NEG) Urine RBC 1-2 /HPF (0-2) Urine WBC Occ /HPF (0-4) Urine Squamous Epithelial Cells Few /LPF Urine Bacteria 0 /HPF (0-FEW) Urine Hyaline Casts Moderate /HPF Urine Mucus Mod /LPF Urine Opiates Screen Neg (NEG) Urine Methadone Screen Neg (NEG) Urine Barbiturates Neg (NEG) Urine Phencyclidine Screen Neg (NEG) Urine Amphetamine/Methamphetamine Neg (NEG) Urine Benzodiazepines Screen Neg (NEG) Urine Cocaine Screen Neg (NEG) Urine Cannabinoids Screen Neg (NEG) Urine Ethyl Alcohol Neg (NEG) White Blood Count 7.5 x10^3/uL (4.0-11.0) Red Blood Count 3.57 x10^6/uL (4.30-5.70) Hemoglobin 10.7 g/dL (13.0-17.5) Hematocrit 32.4 % (39.0-53.0) Mean Corpuscular Volume 91 fL (79-100) Mean Corpuscular Hemoglobin 30 pg (25-35) Mean Corpuscular Hemoglobin Concent 33 g/dL (31-37) Red Cell Distribution Width 15.9 % (11.5-14.5) Platelet Count 166 x10^3/uL (140-400) Neutrophils (%) (Auto) 88 % (31-73) Lymphocytes (%) (Auto) 5 % (24-48) Monocytes (%) (Auto) 7 % (0-9) Eosinophils (%) (Auto) 0 % (0-3) Basophils (%) (Auto) 0 % (0-3) Neutrophils # (Auto) 6.6 x10^3uL (1.8-7.7) Lymphocytes # (Auto) 0.4 x10^3/uL (1.0-4.8) Monocytes # (Auto) 0.5 x10^3/uL (0.0-1.1) Eosinophils # (Auto) 0.0 x10^3/uL (0.0-0.7) Basophils # (Auto) 0.0 x10^3/uL (0.0-0.2) Sodium Level 140 mmol/L (136-145) Potassium Level 4.2 mmol/L (3.5-5.1) Chloride Level 101 mmol/L (98-107) Carbon Dioxide Level 31 mmol/L (21-32) Anion Gap 8 (6-14) Blood Urea Nitrogen 16 mg/dL (8-26) Creatinine 0.9 mg/dL (0.7-1.3) Estimated GFR (Cockcroft-Gault) 104.9 BUN/Creatinine Ratio 18 (6-20) Glucose Level 127 mg/dL (70-99) Calcium Level 8.4 mg/dL (8.5-10.1) Total Bilirubin 0.5 mg/dL (0.2-1.0) Aspartate Amino Transf (AST/SGOT) 16 U/L (15-37) Alanine Aminotransferase (ALT/SGPT) 31 U/L (16-63) Alkaline Phosphatase 98 U/L (46-116) Total Protein 5.9 g/dL (6.4-8.2) Albumin 3.0 g/dL (3.4-5.0) Albumin/Globulin Ratio 1.0 (1.0-1.7) Influenza Type A Antigen Negative (NEGATIVE) Influenza Type B Antigen Negative (NEGATIVE) Test 05/26/18 18:47 05/26/18 23:20 05/27/18 03:55 05/27/18 07:05 Glucose (Fingerstick) 186 mg/dL (70-99) 239 mg/dL (70-99) 186 mg/dL (70-99) White Blood Count 6.7 x10^3/uL (4.0-11.0) Red Blood Count 3.47 x10^6/uL (4.30-5.70) Hemoglobin 10.6 g/dL (13.0-17.5) Hematocrit 32.0 % (39.0-53.0) Mean Corpuscular Volume 92 fL (79-100) Mean Corpuscular Hemoglobin 31 pg (25-35) Mean Corpuscular Hemoglobin Concent 33 g/dL (31-37) Red Cell Distribution Width 16.0 % (11.5-14.5) Platelet Count 154 x10^3/uL (140-400) Neutrophils (%) (Auto) 87 % (31-73) Lymphocytes (%) (Auto) 6 % (24-48) Monocytes (%) (Auto) 7 % (0-9) Eosinophils (%) (Auto) 0 % (0-3) Basophils (%) (Auto) 0 % (0-3) Neutrophils # (Auto) 5.8 x10^3uL (1.8-7.7) Lymphocytes # (Auto) 0.4 x10^3/uL (1.0-4.8) Monocytes # (Auto) 0.5 x10^3/uL (0.0-1.1) Eosinophils # (Auto) 0.0 x10^3/uL (0.0-0.7) Basophils # (Auto) 0.0 x10^3/uL (0.0-0.2) Sodium Level 144 mmol/L (136-145) Potassium Level 3.6 mmol/L (3.5-5.1) Chloride Level 106 mmol/L (98-107) Carbon Dioxide Level 30 mmol/L (21-32) Anion Gap 8 (6-14) Blood Urea Nitrogen 15 mg/dL (8-26) Creatinine 0.8 mg/dL (0.7-1.3) Estimated GFR (Cockcroft-Gault) 120.1 BUN/Creatinine Ratio 19 (6-20) Glucose Level 233 mg/dL (70-99) Calcium Level 8.3 mg/dL (8.5-10.1) Total Bilirubin 0.3 mg/dL (0.2-1.0) Aspartate Amino Transf (AST/SGOT) 15 U/L (15-37) Alanine Aminotransferase (ALT/SGPT) 27 U/L (16-63) Alkaline Phosphatase 110 U/L (46-116) Total Protein 5.7 g/dL (6.4-8.2) Albumin 2.8 g/dL (3.4-5.0) Albumin/Globulin Ratio 1.0 (1.0-1.7) Test 05/27/18 11:15 Glucose (Fingerstick) 247 mg/dL (70-99) Laboratory Tests Test 05/26/18 18:47 05/26/18 23:20 05/27/18 03:55 05/27/18 07:05 Glucose (Fingerstick) 186 mg/dL (70-99) 239 mg/dL (70-99) 186 mg/dL (70-99) White Blood Count 6.7 x10^3/uL (4.0-11.0) Red Blood Count 3.47 x10^6/uL (4.30-5.70) Hemoglobin 10.6 g/dL (13.0-17.5) Hematocrit 32.0 % (39.0-53.0) Mean Corpuscular Volume 92 fL (79-100) Mean Corpuscular Hemoglobin 31 pg (25-35) Mean Corpuscular Hemoglobin Concent 33 g/dL (31-37) Red Cell Distribution Width 16.0 % (11.5-14.5) Platelet Count 154 x10^3/uL (140-400) Neutrophils (%) (Auto) 87 % (31-73) Lymphocytes (%) (Auto) 6 % (24-48) Monocytes (%) (Auto) 7 % (0-9) Eosinophils (%) (Auto) 0 % (0-3) Basophils (%) (Auto) 0 % (0-3) Neutrophils # (Auto) 5.8 x10^3uL (1.8-7.7) Lymphocytes # (Auto) 0.4 x10^3/uL (1.0-4.8) Monocytes # (Auto) 0.5 x10^3/uL (0.0-1.1) Eosinophils # (Auto) 0.0 x10^3/uL (0.0-0.7) Basophils # (Auto) 0.0 x10^3/uL (0.0-0.2) Sodium Level 144 mmol/L (136-145) Potassium Level 3.6 mmol/L (3.5-5.1) Chloride Level 106 mmol/L (98-107) Carbon Dioxide Level 30 mmol/L (21-32) Anion Gap 8 (6-14) Blood Urea Nitrogen 15 mg/dL (8-26) Creatinine 0.8 mg/dL (0.7-1.3) Estimated GFR (Cockcroft-Gault) 120.1 BUN/Creatinine Ratio 19 (6-20) Glucose Level 233 mg/dL (70-99) Calcium Level 8.3 mg/dL (8.5-10.1) Total Bilirubin 0.3 mg/dL (0.2-1.0) Aspartate Amino Transf (AST/SGOT) 15 U/L (15-37) Alanine Aminotransferase (ALT/SGPT) 27 U/L (16-63) Alkaline Phosphatase 110 U/L (46-116) Total Protein 5.7 g/dL (6.4-8.2) Albumin 2.8 g/dL (3.4-5.0) Albumin/Globulin Ratio 1.0 (1.0-1.7) Test 05/27/18 11:15 Glucose (Fingerstick) 247 mg/dL (70-99) Medications Active Scripts Medications Dose Route/Sig Max Daily Dose Days Date Category Prednisone 50 Mg Tablet 1 Tab PO DAILY 05/10/18 Rx Ventolin Hfa Inhaler (Albuterol Sulfate) 18 Gm Hfa.aer.ad 2 Puff INH Q4HRS 05/10/18 Rx Tramadol Hcl 50 Mg Tablet 50 Mg PO Q6HRS PRN 05/10/18 Rx Prednisone 20 Mg Tablet 1 Tab PO DAILY 05/05/18 Rx Tramadol Hcl 50 Mg Tablet 50-100 Mg PO PRN Q6HRS PRN 6 04/30/18 Rx Doxycycline Hyclate 100 Mg Capsule 1 Cap PO BID 04/17/18 Rx Medrol (Methylprednisolone) 4 Mg Tab.ds.pk 1 Pkg PO UD 04/17/18 Rx Mobic (Meloxicam) 7.5 Mg Tablet 1-2 Tab PO DAILY 5 04/17/18 Rx Cyclobenzaprine Hcl 5 Mg Tablet 5 Mg PO PRN TID PRN 04/08/18 Rx Prednisone 50 Mg Tablet 1 Tab PO DAILY 03/27/18 Rx Erythromycin (Erythromycin Base) 250 Mg Tablet 250 Mg PO DAILY 03/15/18 Reported Vitamin D3 (Cholecalciferol (Vitamin D3)) 5,000 Unit Tablet 5,000 Unit PO DAILY 03/15/18 Reported Reglan (Metoclopramide Hcl) 10 Mg Tablet 0.5 Tab PO QID 30 02/14/18 Rx Xanax (Alprazolam) 0.5 Mg Tablet 1 Tab PO BID 02/03/18 Rx Prednisone 20 Mg Tablet 40 Mg PO DAILY 01/31/18 Rx Potassium Chloride 20 Meq Tablet.er 20 Meq PO DAILY 01/13/18 Reported Protonix (Pantoprazole Sodium) 20 Mg Tablet.dr 1 Tab PO DAILY 11/18/17 Reported Flonase Allergy Relief (Fluticasone Propionate) 9.9 Ml [place].susp 2 Sprays NS DAILY 11/18/17 Reported Furosemide 20 Mg Tablet 1 Tab PO DAILY 09/10/17 Rx Atorvastatin Calcium 10 Mg Tablet 10 Mg PO HS 08/21/17 Reported Albuterol Sulfate Neb Soln (Albuterol Sulfate) 2.5 Mg/3 Ml Vial.neb 1 Vial NEB PRN Q4HRS 07/10/17 Rx Symbicort 160-4.5 Mcg Inhaler (Budesonide/Formoterol Fumarate) 10.2 Gm Hfa.aer.ad 2 Puff IH BID 09/21/15 Reported Spiriva (Tiotropium [place]) 18 Mcg Cap.w.dev 2 Inh IH DAILY 09/21/15 Reported Impression . 1. Kbeek-vw-iabrldv respiratory failure secondary to acute bronchitis, acute exacerbation of chronic obstructive pulmonary disease, . 2. ? Sepsis. 3. Acute bronchitis. 4. Acute exacerbation of chronic obstructive pulmonary disease. 5. History of congestive heart failure. 6. Hypertension. 7. Ex-smoker. Plan . 1. Titrate FiO2 to keep oxygen saturation 92%. 2. Continue bronchodilator. 3. Continue prednisone. 4. Encouraged pt to use home CPAP regularly 5. Lovenox for DVT prophylaxis. 6. Nasal swab for influenza A and B. 7. Continue abx 8. Continue not smoking. VIN MEAD MD May 27, 2018 13:35
[2018-05-27 14:24] VITALS: BP 141/79
--- NOTE | 2018-05-27 15:52 | NUR ---
JACOB consulted for limited resources/ access to transportation. Pt is well known to SW from previous admission and has been provided with community resources/area of aging information in the past. Pt lives with family between [facility] and [facility]. Pt also has home oxygen. Pt has been notified he is able to get medicaid taxi for doctor appointments but has to call number listed at the back of his [place] Medicaid card. MARILEE RINCON.
[2018-05-27] MEDS: ENOXAPARIN 40 MG/0.4 ML SYRINGE. SQ SCH (16:00)
[2018-05-27] MEDS: CYCLOBENZAPRINE 10 MG TABLET. PO PRN (16:03)
[2018-05-27 19:44] VITALS: BP 133/74
[2018-05-27] MEDS: ATORVASTATIN CALCIUM 10 MG TABLET. PO SCH (20:45)
[2018-05-27 23:05] VITALS: BP 139/87
[2018-05-28 03:12] VITALS: BP 134/95
[2018-05-28] MEDS: ALBUTEROL SULFATE 2.5 MG/3 ML NEBU. NEB SCH ×6 (04:00→23:06)
[2018-05-28 06:59] VITALS: BP 134/96
[2018-05-28] MEDS: BUDESONIDE 0.5 MG/2 ML NEBU. NEB SCH ×2 (07:05→19:36)
[2018-05-28] MEDS: INSULIN LISPRO 300 UNITS/3 ML INSULN.PEN. SQ SCH ×3 (08:00→17:48)
[2018-05-28 08:33] LABS: BASO % 0 % (0-3); EOS % 1 % (0-3); HEMATOCRIT 33.9 % (39.0-53.0); HEMOGLOBIN 11.3 g/dL (13.0-17.5); LYMPH # 0.5 x10^3/uL (1.0-4.8); LYMPH % 9 % (24-48); MEAN CORPUSCULAR HEMOGLOBIN 30 pg (25-35); MEAN CORPUSCULAR HGB CONC 33 g/dL (31-37); MEAN CORPUSCULAR VOLUME 91 fL (79-100); MONO # 0.4 x10^3/uL (0.0-1.1); MONO % 6 % (0-9); NEUT # 5.5 x10^3uL (1.8-7.7); NEUT % 85 % (31-73); PLATELET COUNT 152 x10^3/uL (140-400); RED BLOOD COUNT 3.71 x10^6/uL (4.30-5.70); RED CELL DISTRIBUTION WIDTH 16.5 % (11.5-14.5); WHITE BLOOD COUNT 6.4 x10^3/uL (4.0-11.0)
[2018-05-28] MEDS: MELOXICAM 7.5 MG TABLET PO SCH (08:33)
[2018-05-28] MEDS: LACTOBACILLUS RHAMNOSUS GG 1 CAPSULE. PO SCH ×2 (08:33→21:23)
[2018-05-28] MEDS: POTASSIUM CHLORIDE 20 MEQ TABLET.ER. PO SCH (08:33)
[2018-05-28] MEDS: METOCLOPRAMIDE 10 MG TABLET. PO SCH ×4 (08:34→21:23)
[2018-05-28] MEDS: PANTOPRAZOLE 40 MG TABLET.DR. PO SCH (08:35)
[2018-05-28] MEDS: ALPRAZolam 0.5 MG TABLET PO SCH ×2 (08:35→21:23)
[2018-05-28] MEDS: ERYTHROMYCIN BASE 250 MG TABLET PO SCH (08:35)
[2018-05-28] MEDS: CHOLECALCIFEROL (VITAMIN D3) 5,000 UNIT CAPSULE PO SCH (08:35)
[2018-05-28] MEDS: DOXYCYCLINE HYCLATE 100 MG in IV DEXTROSE 5% 100ML 100 ML IV SCH ×2 (08:35→21:23)
[2018-05-28] MEDS: predniSONE 20 MG TABLET PO SCH (08:35)
[2018-05-28] MEDS: FLUTICASONE 50MCG/NASAL SPRAY 16GM BOTTLE. NS SCH (08:37)
[2018-05-28 08:47] LABS: CALCIUM 8.7 mg/dL (8.5-10.1); CREATININE 0.8 mg/dL (0.7-1.3); GFR 120.1; POTASSIUM 3.7 mmol/L (3.5-5.1)
[2018-05-28 10:36] VITALS: BP 128/77
--- NOTE | 2018-05-28 10:42 | PDOC ---
PROGRESS NOTES History of Present Illness History of Present Illness VTE Prophylaxis Ordered VTE Prophylaxis Devices: Yes VTE Pharmacological Prophylaxi: Yes Assessment/Plan Assessment/Plan impression/ plan Acute on chronic respiratory failure - will give steroids, qid nebs Left ventricle systolic function is low normal. The Ejection Fraction is 50%. Transmitral Doppler flow pattern is Grade [id number] filling dynamics. The left atrium size is normal. COPD with exacerbation and acute bronchitis - iv doxycycline, consult pulm. Needs bullectomy consideration at [facility] as has previously been discussed Severe emphysema with large bulla at the left apex, recent ct Patchy ground-glass opacity throughout both lungs with some increasing reticulonodular opacity along the bronchovascular bundles of the lower lobes. Consider infectious or inflammatory processes or chronic aspiration. Dysphagia with prior history of Rosanne esophagitis - hypertension CHF chronic combined, EF 50% acute exacerbation, GERD - cont PPI1. reflux to the level of the upper-mid thoracic esophagus. Anemia - of chronic disease. Avoid nephrotoxic meds, IVF CHRONIC HYPERCAPNIC RESP FAILURE Lactic acidosis sec volume depletion Chronic sinusitis NORMOCYTIC ANEMIA 05/28 feeling better, but not back to baseline per patient plan blood cult pulm consult duonebs qid o2 support iv doxycycline 100mg bid, rocephin IV Q 24 HRS 1 GM dvt prophylaxis HOB AT 30 DEGREES to avoid reflux FOLLOW LACTIC ACID TELE ECHO abg ID CONSULT 32 MIN PT EXAM, CHART REVIEW,> 50% OF time spent with exam, chart review, pt care coordination Vitals Vitals Vital Signs Date Time Temp Pulse Resp B/P (MAP) Pulse Ox O2 Delivery O2 Flow Rate FiO2 05/28/18 10:36 98.6 106 18 128/77 (94) 95 Nasal Cannula 3.0 98.6 Physical Exam General: Alert, Oriented X3, Cooperative, mild distress Heart: Regular rate, No murmurs Lungs: Other Abdomen: Soft Extremities: No cyanosis Skin: No significant lesion Labs LABS Laboratory Tests Test 05/27/18 11:15 05/27/18 17:26 05/27/18 20:06 05/28/18 06:51 Glucose (Fingerstick) 247 mg/dL (70-99) 183 mg/dL (70-99) 160 mg/dL (70-99) 106 mg/dL (70-99) Test 05/28/18 08:15 White Blood Count 6.4 x10^3/uL (4.0-11.0) Red Blood Count 3.71 x10^6/uL (4.30-5.70) Hemoglobin 11.3 g/dL (13.0-17.5) Hematocrit 33.9 % (39.0-53.0) Mean Corpuscular Volume 91 fL (79-100) Mean Corpuscular Hemoglobin 30 pg (25-35) Mean Corpuscular Hemoglobin Concent 33 g/dL (31-37) Red Cell Distribution Width 16.5 % (11.5-14.5) Platelet Count 152 x10^3/uL (140-400) Neutrophils (%) (Auto) 85 % (31-73) Lymphocytes (%) (Auto) 9 % (24-48) Monocytes (%) (Auto) 6 % (0-9) Eosinophils (%) (Auto) 1 % (0-3) Basophils (%) (Auto) 0 % (0-3) Neutrophils # (Auto) 5.5 x10^3uL (1.8-7.7) Lymphocytes # (Auto) 0.5 x10^3/uL (1.0-4.8) Monocytes # (Auto) 0.4 x10^3/uL (0.0-1.1) Eosinophils # (Auto) 0.0 x10^3/uL (0.0-0.7) Basophils # (Auto) 0.0 x10^3/uL (0.0-0.2) Sodium Level 142 mmol/L (136-145) Potassium Level 3.7 mmol/L (3.5-5.1) Chloride Level 105 mmol/L (98-107) Carbon Dioxide Level 32 mmol/L (21-32) Anion Gap 5 (6-14) Blood Urea Nitrogen 11 mg/dL (8-26) Creatinine 0.8 mg/dL (0.7-1.3) Estimated GFR (Cockcroft-Gault) 120.1 Glucose Level 109 mg/dL (70-99) Calcium Level 8.7 mg/dL (8.5-10.1) Assessment and Plan Assessmemt and Plan Problems Medical Problems: (1) COPD exacerbation Status: Acute (2) Severe sepsis Status: Acute Comment Review of Relevant I have reviewed the following items franki (where applicable) has been applied. Labs Laboratory Tests Test 05/26/18 12:30 05/26/18 18:47 05/26/18 23:20 05/27/18 03:55 Influenza Type A Antigen Negative (NEGATIVE) Influenza Type B Antigen Negative (NEGATIVE) Glucose (Fingerstick) 186 mg/dL (70-99) 239 mg/dL (70-99) White Blood Count 6.7 x10^3/uL (4.0-11.0) Red Blood Count 3.47 x10^6/uL (4.30-5.70) Hemoglobin 10.6 g/dL (13.0-17.5) Hematocrit 32.0 % (39.0-53.0) Mean Corpuscular Volume 92 fL (79-100) Mean Corpuscular Hemoglobin 31 pg (25-35) Mean Corpuscular Hemoglobin Concent 33 g/dL (31-37) Red Cell Distribution Width 16.0 % (11.5-14.5) Platelet Count 154 x10^3/uL (140-400) Neutrophils (%) (Auto) 87 % (31-73) Lymphocytes (%) (Auto) 6 % (24-48) Monocytes (%) (Auto) 7 % (0-9) Eosinophils (%) (Auto) 0 % (0-3) Basophils (%) (Auto) 0 % (0-3) Neutrophils # (Auto) 5.8 x10^3uL (1.8-7.7) Lymphocytes # (Auto) 0.4 x10^3/uL (1.0-4.8) Monocytes # (Auto) 0.5 x10^3/uL (0.0-1.1) Eosinophils # (Auto) 0.0 x10^3/uL (0.0-0.7) Basophils # (Auto) 0.0 x10^3/uL (0.0-0.2) Sodium Level 144 mmol/L (136-145) Potassium Level 3.6 mmol/L (3.5-5.1) Chloride Level 106 mmol/L (98-107) Carbon Dioxide Level 30 mmol/L (21-32) Anion Gap 8 (6-14) Blood Urea Nitrogen 15 mg/dL (8-26) Creatinine 0.8 mg/dL (0.7-1.3) Estimated GFR (Cockcroft-Gault) 120.1 BUN/Creatinine Ratio 19 (6-20) Glucose Level 233 mg/dL (70-99) Calcium Level 8.3 mg/dL (8.5-10.1) Total Bilirubin 0.3 mg/dL (0.2-1.0) Aspartate Amino Transf (AST/SGOT) 15 U/L (15-37) Alanine Aminotransferase (ALT/SGPT) 27 U/L (16-63) Alkaline Phosphatase 110 U/L (46-116) Total Protein 5.7 g/dL (6.4-8.2) Albumin 2.8 g/dL (3.4-5.0) Albumin/Globulin Ratio 1.0 (1.0-1.7) Test 05/27/18 07:05 05/27/18 11:15 05/27/18 17:26 05/27/18 20:06 Glucose (Fingerstick) 186 mg/dL (70-99) 247 mg/dL (70-99) 183 mg/dL (70-99) 160 mg/dL (70-99) Test 05/28/18 06:51 05/28/18 08:15 Glucose (Fingerstick) 106 mg/dL (70-99) White Blood Count 6.4 x10^3/uL (4.0-11.0) Red Blood Count 3.71 x10^6/uL (4.30-5.70) Hemoglobin 11.3 g/dL (13.0-17.5) Hematocrit 33.9 % (39.0-53.0) Mean Corpuscular Volume 91 fL (79-100) Mean Corpuscular Hemoglobin 30 pg (25-35) Mean Corpuscular Hemoglobin Concent 33 g/dL (31-37) Red Cell Distribution Width 16.5 % (11.5-14.5) Platelet Count 152 x10^3/uL (140-400) Neutrophils (%) (Auto) 85 % (31-73) Lymphocytes (%) (Auto) 9 % (24-48) Monocytes (%) (Auto) 6 % (0-9) Eosinophils (%) (Auto) 1 % (0-3) Basophils (%) (Auto) 0 % (0-3) Neutrophils # (Auto) 5.5 x10^3uL (1.8-7.7) Lymphocytes # (Auto) 0.5 x10^3/uL (1.0-4.8) Monocytes # (Auto) 0.4 x10^3/uL (0.0-1.1) Eosinophils # (Auto) 0.0 x10^3/uL (0.0-0.7) Basophils # (Auto) 0.0 x10^3/uL (0.0-0.2) Sodium Level 142 mmol/L (136-145) Potassium Level 3.7 mmol/L (3.5-5.1) Chloride Level 105 mmol/L (98-107) Carbon Dioxide Level 32 mmol/L (21-32) Anion Gap 5 (6-14) Blood Urea Nitrogen 11 mg/dL (8-26) Creatinine 0.8 mg/dL (0.7-1.3) Estimated GFR (Cockcroft-Gault) 120.1 Glucose Level 109 mg/dL (70-99) Calcium Level 8.7 mg/dL (8.5-10.1) Laboratory Tests Test 05/27/18 11:15 05/27/18 17:26 05/27/18 20:06 05/28/18 06:51 Glucose (Fingerstick) 247 mg/dL (70-99) 183 mg/dL (70-99) 160 mg/dL (70-99) 106 mg/dL (70-99) Test 05/28/18 08:15 White Blood Count 6.4 x10^3/uL (4.0-11.0) Red Blood Count 3.71 x10^6/uL (4.30-5.70) Hemoglobin 11.3 g/dL (13.0-17.5) Hematocrit 33.9 % (39.0-53.0) Mean Corpuscular Volume 91 fL (79-100) Mean Corpuscular Hemoglobin 30 pg (25-35) Mean Corpuscular Hemoglobin Concent 33 g/dL (31-37) Red Cell Distribution Width 16.5 % (11.5-14.5) Platelet Count 152 x10^3/uL (140-400) Neutrophils (%) (Auto) 85 % (31-73) Lymphocytes (%) (Auto) 9 % (24-48) Monocytes (%) (Auto) 6 % (0-9) Eosinophils (%) (Auto) 1 % (0-3) Basophils (%) (Auto) 0 % (0-3) Neutrophils # (Auto) 5.5 x10^3uL (1.8-7.7) Lymphocytes # (Auto) 0.5 x10^3/uL (1.0-4.8) Monocytes # (Auto) 0.4 x10^3/uL (0.0-1.1) Eosinophils # (Auto) 0.0 x10^3/uL (0.0-0.7) Basophils # (Auto) 0.0 x10^3/uL (0.0-0.2) Sodium Level 142 mmol/L (136-145) Potassium Level 3.7 mmol/L (3.5-5.1) Chloride Level 105 mmol/L (98-107) Carbon Dioxide Level 32 mmol/L (21-32) Anion Gap 5 (6-14) Blood Urea Nitrogen 11 mg/dL (8-26) Creatinine 0.8 mg/dL (0.7-1.3) Estimated GFR (Cockcroft-Gault) 120.1 Glucose Level 109 mg/dL (70-99) Calcium Level 8.7 mg/dL (8.5-10.1) Microbiology 05/25/18 Blood Culture - Preliminary, Resulted NO GROWTH AFTER 2 DAYS Medications Current Medications Sodium Chloride 1,000 ml @ 1,000 mls/hr Q1H IV Last administered on 05/25/18at 13:48; Start 05/25/18 at 13:22; Stop 05/25/18 at 14:21; Status DC Albuterol/ Ipratropium (Duoneb) 3 ml 1X ONCE NEB Last administered on at 13:57; Start 05/25/18 at 13:30; Stop 05/25/18 at 13:31; Status DC Methylprednisolone Sodium Succinate (SOLU-Medrol 125MG VIAL) 125 mg 1X ONCE IV Last administered on 05/25/18at 13:47; Start 05/25/18 at 13:30; Stop 05/25/18 at 13:31; Status DC Ceftriaxone Sodium (Rocephin) 1 gm 1X ONCE IVP ; Start 05/25/18 at 14:15; Stop 05/25/18 at 14:15; Status DC Piperacillin Sod/ Tazobactam Sod 3.375 gm/Sodium Chloride 50 ml @ 100 mls/hr 1X ONCE IV Last administered on 05/25/18at 15:02; Start 05/25/18 at 14:15; Stop 05/25/18 at 14:44; Status DC Vancomycin HCl 250 ml @ 250 mls/hr 1X ONCE IV ; Start 05/25/18 at 14:15; Stop 05/25/18 at 15:14; Status DC Sodium Chloride 1,000 ml @ 1,000 mls/hr 1X ONCE IV ; Start 05/25/18 at 14:15; Stop 05/25/18 at 15:14; Status DC Sodium Chloride 1,000 ml @ 1,000 mls/hr 1X ONCE IV ; Start 05/25/18 at 14:15; Stop 05/25/18 at 15:14; Status DC Sodium Chloride 1,000 ml @ 150 mls/hr Q6H40M IV Last administered on at 17:58; Start 05/25/18 at 14:21; Stop 05/26/18 at 14:20; Status DC Albuterol Sulfate (Ventolin Neb Soln) 2.5 mg PRN Q4HRS PRN NEB SHORTNESS OF BREATH Last administered on 05/25/18at 16:16; Start 05/25/18 at 15:30 Alprazolam (Xanax) 0.5 mg BID PO Last administered on 05/28/18at 08:35; Start at 21:00 Atorvastatin Calcium (Lipitor) 10 mg HS PO Last administered on 05/27/18at 20:45 ; Start 05/25/18 at 21:00 Erythromycin (E-Mycin) 250 mg DAILY PO Last administered on 05/28/18at 08:35; Start 05/26/18 at 09:00 Metoclopramide HCl (Reglan) 5 mg QID PO Last administered on 05/28/18at 08:34; Start 05/25/18 at 17:00 Prednisone (Prednisone) 40 mg DAILY PO Last administered on 05/28/18at 08:35; Start 05/26/18 at 09:00 Tramadol HCl (Ultram) 50 mg PRN Q6HRS PRN PO PAIN Last administered on at 14:39; Start 05/25/18 at 15:30 Albuterol Sulfate (Ventolin Neb Soln) 2.5 mg Q4HRS NEB Last administered on 07:05; Start 05/25/18 at 20:00 Budesonide (Pulmicort) 0.5 mg RTBID NEB Last administered on 05/28/18 07:05; Start 05/25/18 at 20:00 Vitamin D (Vitamin D3) 5,000 unit DAILY PO Last administered on 05/28/18 08:35 ; Start 05/26/18 at 09:00 Cyclobenzaprine HCl (Flexeril) 5 mg PRN TID PRN PO MUSCLE SPASMS Last administered on 05/27/18 16:03; Start 05/25/18 at 16:00 Fluticasone Propionate (Flonase) 2 spray DAILY NS Last administered on 08:38; Start 05/26/18 at 09:00 Meloxicam (Mobic) 7.5 mg DAILY PO Last administered on 05/28/18 08:33; Start 05/26/18 at 09:00 Potassium Chloride (Klor-Con) 20 meq DAILYWBKFT PO Last administered on 08:33; Start 05/26/18 at 08:00 Non-Formulary Medication (Tizanidine Hcl ) 4 mg QID PRN PO MUSCLE SPASMS; Start 05/25/18 at 15:30; Stop 05/25/18 at 16:44; Status DC Doxycycline Hyclate 100 mg/ Dextrose 100 ml @ 50 mls/hr Q12HR IV Last administered on 05/28/18 08:35; Start 05/25/18 at 16:00 Sodium Chloride 1,000 ml @ 125 mls/hr 1X ONCE IV Last administered on 18:20; Start 05/25/18 at 15:30; Stop 05/25/18 at 23:29; Status DC Enoxaparin Sodium (Lovenox 40mg Syringe) 40 mg Q24H SQ Last administered on 18:21; Start 05/25/18 at 16:00 Sodium Chloride (Normal Saline Flush 3ml) 3 ml QSHIFT PRN IV AFTER MEDS AND BLOOD DRAWS; Start 05/25/18 at 15:45 Ondansetron HCl (Zofran) 4 mg PRN Q4HRS PRN IV NAUSEA/VOMITING; Start 05/25/18 at 15:45 Zolpidem Tartrate (Ambien) 5 mg PRN QHS PRN PO INSOMNIA; Start 05/25/18 at 15: 45 Acetaminophen (Tylenol) 650 mg PRN Q4HRS PRN PO TEMP OVER 100.4F OR MILD PAIN; Start 05/25/18 at 15:45 Al Hydroxide/Mg Hydroxide (Mylanta Plus Xs) 30 ml PRN DAILY PRN PO HEARTBURN / GAS; Start 05/25/18 at 15:45 Clonidine HCl (Catapres) 0.1 mg PRN Q6HRS PRN PO SBP>160 OR DBP>90; Start 05/25 at 15:45 Docusate Sodium (Colace) 100 mg PRN BID PRN PO CONSTIPATION; Start 05/25/18 at 15:45 Guaifenesin (Robitussin) 200 mg PRN Q4HRS PRN PO COUGH; Start 05/25/18 at 15:45 Lorazepam (Ativan) 0.5 mg PRN Q4HRS PRN PO ANXIETY / AGITATION; Start 05/25/18 at 15:45 Ceftriaxone Sodium (Rocephin) 1 gm Q24H IVP Last administered on 05/27/18at 11: 51; Start 05/26/18 at 13:00 Pantoprazole Sodium (Protonix) 40 mg DAILYAC PO Last administered on 05/28/18at 08:35; Start 05/26/18 at 13:00 Enoxaparin Sodium (Lovenox 40mg Syringe) 40 mg Q24H SQ ; Start 05/26/18 at 08:30 ; Status UNV Lactobacillus Rhamnosus (Culturelle) 1 cap BID PO Last administered on at 08:33; Start 05/26/18 at 21:00 Insulin Human Lispro (HumaLOG) 0-5 UNITS TIDWMEALS SQ Last administered on 05/27at 17:00; Start 05/27/18 at 12:00 Dextrose (Dextrose 50%-Water Syringe) 12.5 gm PRN Q15MIN PRN IV SEE COMMENTS; Start 05/27/18 at 11:45 Active Scripts Active Prednisone 50 Mg Tablet 1 Tab PO DAILY Ventolin Hfa Inhaler (Albuterol Sulfate) 18 Gm Hfa.aer.ad 2 Puff INH Q4HRS Tramadol Hcl 50 Mg Tablet 50 Mg PO Q6HRS PRN Prednisone 20 Mg Tablet 1 Tab PO DAILY Tramadol Hcl 50 Mg Tablet 50-100 Mg PO PRN Q6HRS PRN 6 Days Doxycycline Hyclate 100 Mg Capsule 1 Cap PO BID Medrol (Methylprednisolone) 4 Mg Tab.ds.pk 1 Pkg PO UD Mobic (Meloxicam) 7.5 Mg Tablet 1-2 Tab PO DAILY 5 Days Cyclobenzaprine Hcl 5 Mg Tablet 5 Mg PO PRN TID PRN Prednisone 50 Mg Tablet 1 Tab PO DAILY Reglan (Metoclopramide Hcl) 10 Mg Tablet 0.5 Tab PO QID 30 Days Xanax (Alprazolam) 0.5 Mg Tablet 1 Tab PO BID Prednisone 20 Mg Tablet 40 Mg PO DAILY Furosemide 20 Mg Tablet 1 Tab PO DAILY Albuterol Sulfate Neb Soln (Albuterol Sulfate) 2.5 Mg/3 Ml Vial.neb 1 Vial NEB PRN Q4HRS Reported Erythromycin (Erythromycin Base) 250 Mg Tablet 250 Mg PO DAILY Vitamin D3 (Cholecalciferol (Vitamin D3)) 5,000 Unit Tablet 5,000 Unit PO DAILY Potassium Chloride 20 Meq Tablet.er 20 Meq PO DAILY Protonix (Pantoprazole Sodium) 20 Mg Tablet.dr 1 Tab PO DAILY Flonase Allergy Relief (Fluticasone Propionate) 9.9 Ml [place].susp 2 Sprays NS DAILY Atorvastatin Calcium 10 Mg Tablet 10 Mg PO HS Symbicort 160-4.5 Mcg Inhaler (Budesonide/Formoterol Fumarate) 10.2 Gm Hfa.aer.ad 2 Puff IH BID Spiriva (Tiotropium [place]) 18 Mcg Cap.w.dev 2 Inh IH DAILY Vitals/I & O Vital Sign - Last 24 Hours 05/27/18 05/27/18 05/27/18 05/27/18 11:33 14:24 19:31 19:33 Temp 97.5 97.5 Pulse 110 Resp 20 B/P (MAP) 141/79 (99) Pulse Ox 99 94 92 92 O2 Delivery Nasal Cannula Nasal Cannula Nasal Cannula Nasal Cannula O2 Flow Rate 2.0 3.0 2.0 2.0 05/27/18 05/27/18 05/27/18 05/27/18 19:44 20:30 23:05 23:50 Temp 98.2 97.9 98.2 97.9 Pulse 114 93 Resp 20 16 B/P (MAP) 133/74 (93) 139/87 (104) Pulse Ox 93 95 O2 Delivery Nasal Cannula Nasal Cannula Nasal Cannula Nasal Cannula O2 Flow Rate 3.0 3.0 3.0 2.0 05/28/18 05/28/18 05/28/18 05/28/18 03:12 06:59 07:06 10:36 Temp 97.9 98.1 98.6 97.9 98.1 98.6 Pulse 65 84 106 Resp 16 19 18 B/P (MAP) 134/95 (108) 134/96 (109) 128/77 (94) Pulse Ox 98 99 99 95 O2 Delivery Nasal Cannula Nasal Cannula Nasal Cannula Nasal Cannula O2 Flow Rate 3.0 3.0 2.0 3.0 Intake and Output 05/27/18 05/27/18 05/28/18 15:00 23:00 07:00 Intake Total 320 ml 1140 ml 100 ml Output Total 300 ml 500 ml 100 ml Balance 20 ml 640 ml 0 ml TOMAS BAIG MD May 28, 2018 10:42
--- NOTE | 2018-05-28 11:54 | PDOC ---
PULMONARY PROGRESS NOTES Subjective feels better Vitals Vital Signs Date Time Temp Pulse Resp B/P (MAP) Pulse Ox O2 Delivery O2 Flow Rate FiO2 05/28/18 11:35 93 Nasal Cannula 2.0 05/28/18 10:36 98.6 106 18 128/77 (94) 98.6 General: Alert, No acute distress Lungs: Other Cardiovascular: S1, S2 Abdomen: Soft, Non-tender Neuro Exam: Alert Extremities: No Edema, Other Skin: Warm Labs Laboratory Tests Test 05/26/18 12:30 05/26/18 18:47 05/26/18 23:20 05/27/18 03:55 Influenza Type A Antigen Negative (NEGATIVE) Influenza Type B Antigen Negative (NEGATIVE) Glucose (Fingerstick) 186 mg/dL (70-99) 239 mg/dL (70-99) White Blood Count 6.7 x10^3/uL (4.0-11.0) Red Blood Count 3.47 x10^6/uL (4.30-5.70) Hemoglobin 10.6 g/dL (13.0-17.5) Hematocrit 32.0 % (39.0-53.0) Mean Corpuscular Volume 92 fL (79-100) Mean Corpuscular Hemoglobin 31 pg (25-35) Mean Corpuscular Hemoglobin Concent 33 g/dL (31-37) Red Cell Distribution Width 16.0 % (11.5-14.5) Platelet Count 154 x10^3/uL (140-400) Neutrophils (%) (Auto) 87 % (31-73) Lymphocytes (%) (Auto) 6 % (24-48) Monocytes (%) (Auto) 7 % (0-9) Eosinophils (%) (Auto) 0 % (0-3) Basophils (%) (Auto) 0 % (0-3) Neutrophils # (Auto) 5.8 x10^3uL (1.8-7.7) Lymphocytes # (Auto) 0.4 x10^3/uL (1.0-4.8) Monocytes # (Auto) 0.5 x10^3/uL (0.0-1.1) Eosinophils # (Auto) 0.0 x10^3/uL (0.0-0.7) Basophils # (Auto) 0.0 x10^3/uL (0.0-0.2) Sodium Level 144 mmol/L (136-145) Potassium Level 3.6 mmol/L (3.5-5.1) Chloride Level 106 mmol/L (98-107) Carbon Dioxide Level 30 mmol/L (21-32) Anion Gap 8 (6-14) Blood Urea Nitrogen 15 mg/dL (8-26) Creatinine 0.8 mg/dL (0.7-1.3) Estimated GFR (Cockcroft-Gault) 120.1 BUN/Creatinine Ratio 19 (6-20) Glucose Level 233 mg/dL (70-99) Calcium Level 8.3 mg/dL (8.5-10.1) Total Bilirubin 0.3 mg/dL (0.2-1.0) Aspartate Amino Transf (AST/SGOT) 15 U/L (15-37) Alanine Aminotransferase (ALT/SGPT) 27 U/L (16-63) Alkaline Phosphatase 110 U/L (46-116) Total Protein 5.7 g/dL (6.4-8.2) Albumin 2.8 g/dL (3.4-5.0) Albumin/Globulin Ratio 1.0 (1.0-1.7) Test 05/27/18 07:05 05/27/18 11:15 05/27/18 17:26 05/27/18 20:06 Glucose (Fingerstick) 186 mg/dL (70-99) 247 mg/dL (70-99) 183 mg/dL (70-99) 160 mg/dL (70-99) Test 05/28/18 06:51 05/28/18 08:15 05/28/18 11:22 Glucose (Fingerstick) 106 mg/dL (70-99) 203 mg/dL (70-99) White Blood Count 6.4 x10^3/uL (4.0-11.0) Red Blood Count 3.71 x10^6/uL (4.30-5.70) Hemoglobin 11.3 g/dL (13.0-17.5) Hematocrit 33.9 % (39.0-53.0) Mean Corpuscular Volume 91 fL (79-100) Mean Corpuscular Hemoglobin 30 pg (25-35) Mean Corpuscular Hemoglobin Concent 33 g/dL (31-37) Red Cell Distribution Width 16.5 % (11.5-14.5) Platelet Count 152 x10^3/uL (140-400) Neutrophils (%) (Auto) 85 % (31-73) Lymphocytes (%) (Auto) 9 % (24-48) Monocytes (%) (Auto) 6 % (0-9) Eosinophils (%) (Auto) 1 % (0-3) Basophils (%) (Auto) 0 % (0-3) Neutrophils # (Auto) 5.5 x10^3uL (1.8-7.7) Lymphocytes # (Auto) 0.5 x10^3/uL (1.0-4.8) Monocytes # (Auto) 0.4 x10^3/uL (0.0-1.1) Eosinophils # (Auto) 0.0 x10^3/uL (0.0-0.7) Basophils # (Auto) 0.0 x10^3/uL (0.0-0.2) Sodium Level 142 mmol/L (136-145) Potassium Level 3.7 mmol/L (3.5-5.1) Chloride Level 105 mmol/L (98-107) Carbon Dioxide Level 32 mmol/L (21-32) Anion Gap 5 (6-14) Blood Urea Nitrogen 11 mg/dL (8-26) Creatinine 0.8 mg/dL (0.7-1.3) Estimated GFR (Cockcroft-Gault) 120.1 Glucose Level 109 mg/dL (70-99) Calcium Level 8.7 mg/dL (8.5-10.1) Laboratory Tests Test 05/27/18 17:26 05/27/18 20:06 05/28/18 06:51 05/28/18 08:15 Glucose (Fingerstick) 183 mg/dL (70-99) 160 mg/dL (70-99) 106 mg/dL (70-99) White Blood Count 6.4 x10^3/uL (4.0-11.0) Red Blood Count 3.71 x10^6/uL (4.30-5.70) Hemoglobin 11.3 g/dL (13.0-17.5) Hematocrit 33.9 % (39.0-53.0) Mean Corpuscular Volume 91 fL (79-100) Mean Corpuscular Hemoglobin 30 pg (25-35) Mean Corpuscular Hemoglobin Concent 33 g/dL (31-37) Red Cell Distribution Width 16.5 % (11.5-14.5) Platelet Count 152 x10^3/uL (140-400) Neutrophils (%) (Auto) 85 % (31-73) Lymphocytes (%) (Auto) 9 % (24-48) Monocytes (%) (Auto) 6 % (0-9) Eosinophils (%) (Auto) 1 % (0-3) Basophils (%) (Auto) 0 % (0-3) Neutrophils # (Auto) 5.5 x10^3uL (1.8-7.7) Lymphocytes # (Auto) 0.5 x10^3/uL (1.0-4.8) Monocytes # (Auto) 0.4 x10^3/uL (0.0-1.1) Eosinophils # (Auto) 0.0 x10^3/uL (0.0-0.7) Basophils # (Auto) 0.0 x10^3/uL (0.0-0.2) Sodium Level 142 mmol/L (136-145) Potassium Level 3.7 mmol/L (3.5-5.1) Chloride Level 105 mmol/L (98-107) Carbon Dioxide Level 32 mmol/L (21-32) Anion Gap 5 (6-14) Blood Urea Nitrogen 11 mg/dL (8-26) Creatinine 0.8 mg/dL (0.7-1.3) Estimated GFR (Cockcroft-Gault) 120.1 Glucose Level 109 mg/dL (70-99) Calcium Level 8.7 mg/dL (8.5-10.1) Test 05/28/18 11:22 Glucose (Fingerstick) 203 mg/dL (70-99) Medications Active Scripts Medications Dose Route/Sig Max Daily Dose Days Date Category Prednisone 50 Mg Tablet 1 Tab PO DAILY 05/10/18 Rx Ventolin Hfa Inhaler (Albuterol Sulfate) 18 Gm Hfa.aer.ad 2 Puff INH Q4HRS 05/10/18 Rx Tramadol Hcl 50 Mg Tablet 50 Mg PO Q6HRS PRN 05/10/18 Rx Prednisone 20 Mg Tablet 1 Tab PO DAILY 05/05/18 Rx Tramadol Hcl 50 Mg Tablet 50-100 Mg PO PRN Q6HRS PRN 6 04/30/18 Rx Doxycycline Hyclate 100 Mg Capsule 1 Cap PO BID 04/17/18 Rx Medrol (Methylprednisolone) 4 Mg Tab.ds.pk 1 Pkg PO UD 04/17/18 Rx Mobic (Meloxicam) 7.5 Mg Tablet 1-2 Tab PO DAILY 5 04/17/18 Rx Cyclobenzaprine Hcl 5 Mg Tablet 5 Mg PO PRN TID PRN 04/08/18 Rx Prednisone 50 Mg Tablet 1 Tab PO DAILY 03/27/18 Rx Erythromycin (Erythromycin Base) 250 Mg Tablet 250 Mg PO DAILY 03/15/18 Reported Vitamin D3 (Cholecalciferol (Vitamin D3)) 5,000 Unit Tablet 5,000 Unit PO DAILY 03/15/18 Reported Reglan (Metoclopramide Hcl) 10 Mg Tablet 0.5 Tab PO QID 30 02/14/18 Rx Xanax (Alprazolam) 0.5 Mg Tablet 1 Tab PO BID 02/03/18 Rx Prednisone 20 Mg Tablet 40 Mg PO DAILY 01/31/18 Rx Potassium Chloride 20 Meq Tablet.er 20 Meq PO DAILY 01/13/18 Reported Protonix (Pantoprazole Sodium) 20 Mg Tablet.dr 1 Tab PO DAILY 11/18/17 Reported Flonase Allergy Relief (Fluticasone Propionate) 9.9 Ml [place].susp 2 Sprays NS DAILY 11/18/17 Reported Furosemide 20 Mg Tablet 1 Tab PO DAILY 09/10/17 Rx Atorvastatin Calcium 10 Mg Tablet 10 Mg PO HS 08/21/17 Reported Albuterol Sulfate Neb Soln (Albuterol Sulfate) 2.5 Mg/3 Ml Vial.neb 1 Vial NEB PRN Q4HRS 07/10/17 Rx Symbicort 160-4.5 Mcg Inhaler (Budesonide/Formoterol Fumarate) 10.2 Gm Hfa.aer.ad 2 Puff IH BID 09/21/15 Reported Spiriva (Tiotropium [place]) 18 Mcg Cap.w.dev 2 Inh IH DAILY 09/21/15 Reported Impression . 1. [id number] respiratory failure secondary to acute bronchitis, acute exacerbation of chronic obstructive pulmonary disease, . 2. ? Sepsis. 3. Acute bronchitis. 4. Acute exacerbation of chronic obstructive pulmonary disease. 5. History of congestive heart failure. 6. Hypertension. 7. Ex-smoker. Plan . 1. Titrate FiO2 to keep oxygen saturation 92%. 2. Continue bronchodilator. 3. Continue prednisone. 4. Encouraged pt to use home CPAP regularly/ BIPAP while in house qhs 5. Lovenox for DVT prophylaxis. 6. Nasal swab for influenza A and B. 7. Continue abx 8. Continue not smoking. d/w RT VIN MEAD MD May 28, 2018 11:54
--- NOTE | 2018-05-28 12:12 | PDOC ---
Infectious Disease Note Subjective: Subjective pt says feels a little better sob and cough are improving Vital Signs: Vital Signs Vital Signs Date Time Temp Pulse Resp B/P (MAP) Pulse Ox O2 Delivery O2 Flow Rate FiO2 05/28/18 11:35 93 Nasal Cannula 2.0 05/28/18 10:36 98.6 106 18 128/77 (94) 98.6 Physical Exam: PHYSICAL EXAM GENERAL: The patient is slightly propped up in bed, alert, relaxed appearance. HEENT: Pupils equally round. Normal conjunctivae. Oral cavity: Pharynx pink and dry. NECK: Supple. LUNGS: Diminished aeration throughout. HEART: S1, S2. ABDOMEN: Obese, soft, nontender with bowel sounds present. EXTREMITIES: 2+ edema in lower extremities bilaterally. No cyanosis. SKIN: Warm and dry. NEUROLOGIC: Alert and responds appropriately. Medications: Inpatient Meds: Current Medications Medications (Trade) Dose Ordered Sig/Candy Start Time Stop Time Status Last Admin Dose Admin Acetaminophen (Tylenol) 650 mg PRN Q4HRS PRN 05/25/18 15:45 Al Hydroxide/Mg Hydroxide (Mylanta Plus Xs) 30 ml PRN DAILY PRN 05/25/18 15:45 Albuterol Sulfate (Ventolin Neb Soln) 2.5 mg Q4HRS 05/25/18 20:00 05/28/18 11:35 2.5 MG Albuterol/ Ipratropium (Duoneb) 3 ml 1X ONCE 05/25/18 13:30 05/25/18 13:31 DC 05/25/18 13:57 3 ML Alprazolam (Xanax) 0.5 mg BID 05/25/18 21:00 05/28/18 08:35 0.5 MG Atorvastatin Calcium (Lipitor) 10 mg HS 05/25/18 21:00 05/27/18 20:45 10 MG Budesonide (Pulmicort) 0.5 mg RTBID 05/25/18 20:00 05/28/18 07:05 0.5 MG Ceftriaxone Sodium (Rocephin) 1 gm Q24H 05/26/18 13:00 05/27/18 11:51 1 GM Clonidine HCl (Catapres) 0.1 mg PRN Q6HRS PRN 05/25/18 15:45 Cyclobenzaprine HCl (Flexeril) 5 mg PRN TID PRN 05/25/18 16:00 05/27/18 16:03 5 MG Dextrose (Dextrose 50%-Water Syringe) 12.5 gm PRN Q15MIN PRN 05/27/18 11:45 Docusate Sodium (Colace) 100 mg PRN BID PRN 05/25/18 15:45 Doxycycline Hyclate 100 mg/ Dextrose 100 ml @ 50 mls/hr Q12HR 05/25/18 16:00 05/28/18 08:35 50 MLS/HR Enoxaparin Sodium (Lovenox 40mg Syringe) 40 mg Q24H 05/26/18 08:30 UNV Erythromycin (E-Mycin) 250 mg DAILY 05/26/18 09:00 05/28/18 08:35 250 MG Fluticasone Propionate (Flonase) 2 spray DAILY 05/26/18 09:00 05/26/18 08:38 2 SPRAY Guaifenesin (Robitussin) 200 mg PRN Q4HRS PRN 05/25/18 15:45 Insulin Human Lispro (HumaLOG) 0-5 UNITS TIDWMEALS 05/27/18 12:00 05/27/18 17:00 2 UNITS Lactobacillus Rhamnosus (Culturelle) 1 cap BID 05/26/18 21:00 05/28/18 08:33 1 CAP Lorazepam (Ativan) 0.5 mg PRN Q4HRS PRN 05/25/18 15:45 Meloxicam (Mobic) 7.5 mg DAILY 05/26/18 09:00 05/28/18 08:33 7.5 MG Methylprednisolone Sodium Succinate (SOLU-Medrol 125MG VIAL) 125 mg 1X ONCE 05/25/18 13:30 05/25/18 13:31 DC 05/25/18 13:47 125 MG Metoclopramide HCl (Reglan) 5 mg QID 05/25/18 17:00 05/28/18 08:34 5 MG Non-Formulary Medication (Tizanidine Hcl ) 4 mg QID PRN 05/25/18 15:30 05/25/18 16:44 DC Ondansetron HCl (Zofran) 4 mg PRN Q4HRS PRN 05/25/18 15:45 Pantoprazole Sodium (Protonix) 40 mg DAILYAC 05/26/18 13:00 05/28/18 08:35 40 MG Piperacillin Sod/ Tazobactam Sod 3.375 gm/Sodium Chloride 50 ml @ 100 mls/hr 1X ONCE 05/25/18 14:15 05/25/18 14:44 DC 05/25/18 15:02 100 MLS/HR Potassium Chloride (Klor-Con) 20 meq [id number] 05/26/18 08:00 05/28/18 08:33 20 MEQ Prednisone (Prednisone) 40 mg DAILY 05/26/18 09:00 05/28/18 08:35 40 MG Sodium Chloride (Normal Saline Flush 3ml) 3 ml QSHIFT PRN 05/25/18 15:45 Tramadol HCl (Ultram) 50 mg PRN Q6HRS PRN 05/25/18 15:30 05/27/18 14:39 50 MG Vancomycin HCl 250 ml @ 250 mls/hr 1X ONCE 05/25/18 14:15 05/25/18 15:14 DC Vitamin D (Vitamin D3) 5,000 unit DAILY 05/26/18 09:00 05/28/18 08:35 5,000 UNIT Zolpidem Tartrate (Ambien) 5 mg PRN QHS PRN 05/25/18 15:45 Labs: Lab Laboratory Tests Test 05/27/18 17:26 05/27/18 20:06 05/28/18 06:51 05/28/18 08:15 Glucose (Fingerstick) 183 mg/dL (70-99) 160 mg/dL (70-99) 106 mg/dL (70-99) White Blood Count 6.4 x10^3/uL (4.0-11.0) Red Blood Count 3.71 x10^6/uL (4.30-5.70) Hemoglobin 11.3 g/dL (13.0-17.5) Hematocrit 33.9 % (39.0-53.0) Mean Corpuscular Volume 91 fL (79-100) Mean Corpuscular Hemoglobin 30 pg (25-35) Mean Corpuscular Hemoglobin Concent 33 g/dL (31-37) Red Cell Distribution Width 16.5 % (11.5-14.5) Platelet Count 152 x10^3/uL (140-400) Neutrophils (%) (Auto) 85 % (31-73) Lymphocytes (%) (Auto) 9 % (24-48) Monocytes (%) (Auto) 6 % (0-9) Eosinophils (%) (Auto) 1 % (0-3) Basophils (%) (Auto) 0 % (0-3) Neutrophils # (Auto) 5.5 x10^3uL (1.8-7.7) Lymphocytes # (Auto) 0.5 x10^3/uL (1.0-4.8) Monocytes # (Auto) 0.4 x10^3/uL (0.0-1.1) Eosinophils # (Auto) 0.0 x10^3/uL (0.0-0.7) Basophils # (Auto) 0.0 x10^3/uL (0.0-0.2) Sodium Level 142 mmol/L (136-145) Potassium Level 3.7 mmol/L (3.5-5.1) Chloride Level 105 mmol/L (98-107) Carbon Dioxide Level 32 mmol/L (21-32) Anion Gap 5 (6-14) Blood Urea Nitrogen 11 mg/dL (8-26) Creatinine 0.8 mg/dL (0.7-1.3) Estimated GFR (Cockcroft-Gault) 120.1 Glucose Level 109 mg/dL (70-99) Calcium Level 8.7 mg/dL (8.5-10.1) Test 05/28/18 11:22 Glucose (Fingerstick) 203 mg/dL (70-99) Objective: Assessment: Acute on chronic respiratory failure, O2 dependent 3L Exacerbation COPD Bullous emphysema Lactic acidosis HTN Plan: Plan of Care Doxy and Luiseptoshian for now transition to po augmentin and doxycycline when ready for dc Influenza screen Supportive care WARNER GONZALEZ MD May 28, 2018 12:11
[2018-05-28] MEDS: cefTRIAXone IV Push 1 GM VIAL. IVP SCH (12:58)
[2018-05-28 14:30] VITALS: BP 131/90
[2018-05-28] MEDS: ENOXAPARIN 40 MG/0.4 ML SYRINGE. SQ SCH (16:00)
[2018-05-28 19:00] VITALS: BP 129/80
[2018-05-28] MEDS: ATORVASTATIN CALCIUM 10 MG TABLET. PO SCH (21:22)
[2018-05-28] MEDS: traMADol 50 MG TABLET PO PRN (21:26)
[2018-05-28] MEDS: CYCLOBENZAPRINE 10 MG TABLET. PO PRN (21:26)
[2018-05-28 23:00] VITALS: BP 119/89
[2018-05-29 03:00] VITALS: BP 128/90
[2018-05-29] MEDS: ALBUTEROL SULFATE 2.5 MG/3 ML NEBU. NEB SCH ×6 (04:20→23:30)
--- NOTE | 2018-05-29 04:36 | NUR ---
ATTEMPTED MULTIPLE TIMES TO HAVE PATIENT WEAR BIPAP (ALSO OFFERED CPAP BECAUSE HE SAID HE COULDN'T TOLERATE BIPAP) BUT PATIENT SAID HE WAS TO AWAKE TO WEAR IT
[2018-05-29 07:17] VITALS: BP 130/95
[2018-05-29] MEDS: BUDESONIDE 0.5 MG/2 ML NEBU. NEB SCH ×2 (07:55→20:20)
[2018-05-29] MEDS: INSULIN LISPRO 300 UNITS/3 ML INSULN.PEN. SQ SCH ×3 (08:00→17:37)
[2018-05-29] MEDS: FLUTICASONE 50MCG/NASAL SPRAY 16GM BOTTLE. NS SCH (08:26)
[2018-05-29] MEDS: ALPRAZolam 0.5 MG TABLET PO SCH ×2 (08:27→21:34)
[2018-05-29] MEDS: LACTOBACILLUS RHAMNOSUS GG 1 CAPSULE. PO SCH ×2 (08:27→21:33)
[2018-05-29] MEDS: PANTOPRAZOLE 40 MG TABLET.DR. PO SCH (08:27)
[2018-05-29] MEDS: predniSONE 20 MG TABLET PO SCH (08:27)
[2018-05-29] MEDS: METOCLOPRAMIDE 10 MG TABLET. PO SCH ×4 (08:27→21:34)
[2018-05-29] MEDS: MELOXICAM 7.5 MG TABLET PO SCH (08:27)
[2018-05-29] MEDS: ERYTHROMYCIN BASE 250 MG TABLET PO SCH (08:27)
[2018-05-29] MEDS: CHOLECALCIFEROL (VITAMIN D3) 5,000 UNIT CAPSULE PO SCH (08:27)
[2018-05-29] MEDS: POTASSIUM CHLORIDE 20 MEQ TABLET.ER. PO SCH (08:28)
[2018-05-29] MEDS: DOXYCYCLINE HYCLATE 100 MG in IV DEXTROSE 5% 100ML 100 ML IV SCH (08:29)
--- NOTE | 2018-05-29 10:13 | PDOC ---
PROGRESS NOTES History of Present Illness History of Present Illness VTE Prophylaxis Ordered VTE Prophylaxis Devices: Yes VTE Pharmacological Prophylaxi: Yes Assessment/Plan Assessment/Plan impression/ plan Acute on chronic respiratory failure - will give steroids, qid nebs Left ventricle systolic function is low normal. The Ejection Fraction is 50%. Transmitral Doppler flow pattern is Grade [id number] filling dynamics. The left atrium size is normal. COPD with exacerbation and acute bronchitis - iv doxycycline, consult pulm. Needs bullectomy consideration at [facility] as has previously been discussed Severe emphysema with large bulla at the left apex, recent ct Patchy ground-glass opacity throughout both lungs with some increasing reticulonodular opacity along the bronchovascular bundles of the lower lobes. Consider infectious or inflammatory processes or chronic aspiration. Dysphagia with prior history of Rosanne esophagitis - hypertension CHF chronic combined, EF 50% acute exacerbation, GERD - cont PPI1. reflux to the level of the upper-mid thoracic esophagus. Anemia - of chronic disease. Avoid nephrotoxic meds, IVF CHRONIC HYPERCAPNIC RESP FAILURE Lactic acidosis sec volume depletion Chronic sinusitis NORMOCYTIC ANEMIA 05/28 feeling better, but not back to baseline per patient 05/29, STATES HE HAD A BAD NIGHT NOT SLEEPNG WELL, WEAK plan blood cult pulm consult duonebs qid o2 support iv doxycycline 100mg bid, rocephin IV Q 24 HRS 1 GM dvt prophylaxis HOB AT 30 DEGREES to avoid reflux FOLLOW LACTIC ACID TELE ECHO abg ID FOLLOWING 36 MIN PT EXAM, CHART REVIEW,> 50% OF time spent with exam, chart review, pt care coordination Vitals Vitals Vital Signs Date Time Temp Pulse Resp B/P (MAP) Pulse Ox O2 Delivery O2 Flow Rate FiO2 05/29/18 07:55 98 Nasal Cannula 2.0 05/29/18 07:17 98.1 70 19 130/95 (107) 98.1 Physical Exam Physical Exam GENERAL: The patient is slightly propped up in bed, alert, relaxed appearance. HEENT: Pupils equally round. Normal conjunctivae. Oral cavity: Pharynx pink and dry. NECK: Supple. LUNGS: Diminished aeration throughout. HEART: S1, S2. ABDOMEN: Obese, soft, nontender with bowel sounds present. EXTREMITIES: 2+ edema in lower extremities bilaterally. No cyanosis. SKIN: Warm and dry. NEUROLOGIC: Alert and responds appropriately. General: Alert, Oriented X3, Cooperative, mild distress, moderate distress Heart: Regular rate, Normal S1, No murmurs Lungs: Other Abdomen: Soft Extremities: No cyanosis Skin: No significant lesion Labs LABS Laboratory Tests Test 05/28/18 11:22 05/28/18 16:49 05/28/18 20:37 05/29/18 07:11 Glucose (Fingerstick) 203 mg/dL (70-99) 330 mg/dL (70-99) 193 mg/dL (70-99) 150 mg/dL (70-99) Assessment and Plan Assessmemt and Plan Problems Medical Problems: (1) COPD exacerbation Status: Acute (2) Severe sepsis Status: Acute Comment Review of Relevant I have reviewed the following items franki (where applicable) has been applied. Labs Laboratory Tests Test 05/27/18 11:15 05/27/18 17:26 05/27/18 20:06 05/28/18 06:51 Glucose (Fingerstick) 247 mg/dL (70-99) 183 mg/dL (70-99) 160 mg/dL (70-99) 106 mg/dL (70-99) Test 05/28/18 08:15 05/28/18 11:22 05/28/18 16:49 05/28/18 20:37 White Blood Count 6.4 x10^3/uL (4.0-11.0) Red Blood Count 3.71 x10^6/uL (4.30-5.70) Hemoglobin 11.3 g/dL (13.0-17.5) Hematocrit 33.9 % (39.0-53.0) Mean Corpuscular Volume 91 fL (79-100) Mean Corpuscular Hemoglobin 30 pg (25-35) Mean Corpuscular Hemoglobin Concent 33 g/dL (31-37) Red Cell Distribution Width 16.5 % (11.5-14.5) Platelet Count 152 x10^3/uL (140-400) Neutrophils (%) (Auto) 85 % (31-73) Lymphocytes (%) (Auto) 9 % (24-48) Monocytes (%) (Auto) 6 % (0-9) Eosinophils (%) (Auto) 1 % (0-3) Basophils (%) (Auto) 0 % (0-3) Neutrophils # (Auto) 5.5 x10^3uL (1.8-7.7) Lymphocytes # (Auto) 0.5 x10^3/uL (1.0-4.8) Monocytes # (Auto) 0.4 x10^3/uL (0.0-1.1) Eosinophils # (Auto) 0.0 x10^3/uL (0.0-0.7) Basophils # (Auto) 0.0 x10^3/uL (0.0-0.2) Sodium Level 142 mmol/L (136-145) Potassium Level 3.7 mmol/L (3.5-5.1) Chloride Level 105 mmol/L (98-107) Carbon Dioxide Level 32 mmol/L (21-32) Anion Gap 5 (6-14) Blood Urea Nitrogen 11 mg/dL (8-26) Creatinine 0.8 mg/dL (0.7-1.3) Estimated GFR (Cockcroft-Gault) 120.1 Glucose Level 109 mg/dL (70-99) Calcium Level 8.7 mg/dL (8.5-10.1) Glucose (Fingerstick) 203 mg/dL (70-99) 330 mg/dL (70-99) 193 mg/dL (70-99) Test 05/29/18 07:11 Glucose (Fingerstick) 150 mg/dL (70-99) Laboratory Tests Test 05/28/18 11:22 05/28/18 16:49 05/28/18 20:37 05/29/18 07:11 Glucose (Fingerstick) 203 mg/dL (70-99) 330 mg/dL (70-99) 193 mg/dL (70-99) 150 mg/dL (70-99) Microbiology 05/25/18 Blood Culture - Preliminary, Resulted NO GROWTH AFTER 3 DAYS Medications Current Medications Sodium Chloride 1,000 ml @ 1,000 mls/hr Q1H IV Last administered on 05/25/18at 13:48; Start 05/25/18 at 13:22; Stop 05/25/18 at 14:21; Status DC Albuterol/ Ipratropium (Duoneb) 3 ml 1X ONCE NEB Last administered on at 13:57; Start 05/25/18 at 13:30; Stop 05/25/18 at 13:31; Status DC Methylprednisolone Sodium Succinate (SOLU-Medrol 125MG VIAL) 125 mg 1X ONCE IV Last administered on 05/25/18at 13:47; Start 05/25/18 at 13:30; Stop 05/25/18 at 13:31; Status DC Ceftriaxone Sodium (Rocephin) 1 gm 1X ONCE IVP ; Start 05/25/18 at 14:15; Stop 05/25/18 at 14:15; Status DC Piperacillin Sod/ Tazobactam Sod 3.375 gm/Sodium Chloride 50 ml @ 100 mls/hr 1X ONCE IV Last administered on 05/25/18at 15:02; Start 05/25/18 at 14:15; Stop 05/25/18 at 14:44; Status DC Vancomycin HCl 250 ml @ 250 mls/hr 1X ONCE IV ; Start 05/25/18 at 14:15; Stop 05/25/18 at 15:14; Status DC Sodium Chloride 1,000 ml @ 1,000 mls/hr 1X ONCE IV ; Start 05/25/18 at 14:15; Stop 05/25/18 at 15:14; Status DC Sodium Chloride 1,000 ml @ 1,000 mls/hr 1X ONCE IV ; Start 05/25/18 at 14:15; Stop 05/25/18 at 15:14; Status DC Sodium Chloride 1,000 ml @ 150 mls/hr Q6H40M IV Last administered on at 17:58; Start 05/25/18 at 14:21; Stop 05/26/18 at 14:20; Status DC Albuterol Sulfate (Ventolin Neb Soln) 2.5 mg PRN Q4HRS PRN NEB SHORTNESS OF BREATH Last administered on 05/25/18at 16:16; Start 05/25/18 at 15:30 Alprazolam (Xanax) 0.5 mg BID PO Last administered on 05/29/18at 08:27; Start at 21:00 Atorvastatin Calcium (Lipitor) 10 mg HS PO Last administered on 05/28/18at 21:22 ; Start 05/25/18 at 21:00 Erythromycin (E-Mycin) 250 mg DAILY PO Last administered on 05/29/18at 08:27; Start 05/26/18 at 09:00 Metoclopramide HCl (Reglan) 5 mg QID PO Last administered on 05/29/18 08:27; Start 05/25/18 at 17:00 Prednisone (Prednisone) 40 mg DAILY PO Last administered on 05/29/18 08:27; Start 05/26/18 at 09:00 Tramadol HCl (Ultram) 50 mg PRN Q6HRS PRN PO PAIN Last administered on 21:26; Start 05/25/18 at 15:30 Albuterol Sulfate (Ventolin Neb Soln) 2.5 mg Q4HRS NEB Last administered on 07:55; Start 05/25/18 at 20:00 Budesonide (Pulmicort) 0.5 mg RTBID NEB Last administered on 05/29/18 07:55; Start 05/25/18 at 20:00 Vitamin D (Vitamin D3) 5,000 unit DAILY PO Last administered on 05/29/18 08:27 ; Start 05/26/18 at 09:00 Cyclobenzaprine HCl (Flexeril) 5 mg PRN TID PRN PO MUSCLE SPASMS Last administered on 05/28/18 21:26; Start 05/25/18 at 16:00 Fluticasone Propionate (Flonase) 2 spray DAILY NS Last administered on 08:26; Start 05/26/18 at 09:00 Meloxicam (Mobic) 7.5 mg DAILY PO Last administered on 05/29/18 08:27; Start 05/26/18 at 09:00 Potassium Chloride (Klor-Con) 20 meq DAILYWBKFT PO Last administered on 08:28; Start 05/26/18 at 08:00 Non-Formulary Medication (Tizanidine Hcl ) 4 mg QID PRN PO MUSCLE SPASMS; Start 05/25/18 at 15:30; Stop 05/25/18 at 16:44; Status DC Doxycycline Hyclate 100 mg/ Dextrose 100 ml @ 50 mls/hr Q12HR IV Last administered on 05/29/18 08:29; Start 05/25/18 at 16:00 Sodium Chloride 1,000 ml @ 125 mls/hr 1X ONCE IV Last administered on 18:20; Start 05/25/18 at 15:30; Stop 05/25/18 at 23:29; Status DC Enoxaparin Sodium (Lovenox 40mg Syringe) 40 mg Q24H SQ Last administered on at 18:21; Start 05/25/18 at 16:00 Sodium Chloride (Normal Saline Flush 3ml) 3 ml QSHIFT PRN IV AFTER MEDS AND BLOOD DRAWS; Start 05/25/18 at 15:45 Ondansetron HCl (Zofran) 4 mg PRN Q4HRS PRN IV NAUSEA/VOMITING; Start 05/25/18 at 15:45 Zolpidem Tartrate (Ambien) 5 mg PRN QHS PRN PO INSOMNIA; Start 05/25/18 at 15: 45 Acetaminophen (Tylenol) 650 mg PRN Q4HRS PRN PO TEMP OVER 100.4F OR MILD PAIN; Start 05/25/18 at 15:45 Al Hydroxide/Mg Hydroxide (Mylanta Plus Xs) 30 ml PRN DAILY PRN PO HEARTBURN / GAS; Start 05/25/18 at 15:45 Clonidine HCl (Catapres) 0.1 mg PRN Q6HRS PRN PO SBP>160 OR DBP>90; Start 05/25 at 15:45 Docusate Sodium (Colace) 100 mg PRN BID PRN PO CONSTIPATION; Start 05/25/18 at 15:45 Guaifenesin (Robitussin) 200 mg PRN Q4HRS PRN PO COUGH; Start 05/25/18 at 15:45 Lorazepam (Ativan) 0.5 mg PRN Q4HRS PRN PO ANXIETY / AGITATION; Start 05/25/18 at 15:45 Ceftriaxone Sodium (Rocephin) 1 gm Q24H IVP Last administered on 05/28/18at 12: 58; Start 05/26/18 at 13:00 Pantoprazole Sodium (Protonix) 40 mg DAILYAC PO Last administered on 05/29/18at 08:27; Start 05/26/18 at 13:00 Enoxaparin Sodium (Lovenox 40mg Syringe) 40 mg Q24H SQ ; Start 05/26/18 at 08:30 ; Status UNV Lactobacillus Rhamnosus (Culturelle) 1 cap BID PO Last administered on at 08:27; Start 05/26/18 at 21:00 Insulin Human Lispro (HumaLOG) 0-5 UNITS TIDWMEALS SQ Last administered on 05/28at 17:48; Start 05/27/18 at 12:00 Dextrose (Dextrose 50%-Water Syringe) 12.5 gm PRN Q15MIN PRN IV SEE COMMENTS; Start 05/27/18 at 11:45 Active Scripts Active Prednisone 50 Mg Tablet 1 Tab PO DAILY Ventolin Hfa Inhaler (Albuterol Sulfate) 18 Gm Hfa.aer.ad 2 Puff INH Q4HRS Tramadol Hcl 50 Mg Tablet 50 Mg PO Q6HRS PRN Prednisone 20 Mg Tablet 1 Tab PO DAILY Tramadol Hcl 50 Mg Tablet 50-100 Mg PO PRN Q6HRS PRN 6 Days Doxycycline Hyclate 100 Mg Capsule 1 Cap PO BID Medrol (Methylprednisolone) 4 Mg Tab.ds.pk 1 Pkg PO UD Mobic (Meloxicam) 7.5 Mg Tablet 1-2 Tab PO DAILY 5 Days Cyclobenzaprine Hcl 5 Mg Tablet 5 Mg PO PRN TID PRN Prednisone 50 Mg Tablet 1 Tab PO DAILY Reglan (Metoclopramide Hcl) 10 Mg Tablet 0.5 Tab PO QID 30 Days Xanax (Alprazolam) 0.5 Mg Tablet 1 Tab PO BID Prednisone 20 Mg Tablet 40 Mg PO DAILY Furosemide 20 Mg Tablet 1 Tab PO DAILY Albuterol Sulfate Neb Soln (Albuterol Sulfate) 2.5 Mg/3 Ml Vial.neb 1 Vial NEB PRN Q4HRS Reported Erythromycin (Erythromycin Base) 250 Mg Tablet 250 Mg PO DAILY Vitamin D3 (Cholecalciferol (Vitamin D3)) 5,000 Unit Tablet 5,000 Unit PO DAILY Potassium Chloride 20 Meq Tablet.er 20 Meq PO DAILY Protonix (Pantoprazole Sodium) 20 Mg Tablet.dr 1 Tab PO DAILY Flonase Allergy Relief (Fluticasone Propionate) 9.9 Ml [place].susp 2 Sprays NS DAILY Atorvastatin Calcium 10 Mg Tablet 10 Mg PO HS Symbicort 160-4.5 Mcg Inhaler (Budesonide/Formoterol Fumarate) 10.2 Gm Hfa.aer.ad 2 Puff IH BID Spiriva (Tiotropium [place]) 18 Mcg Cap.w.dev 2 Inh IH DAILY Vitals/I & O Vital Sign - Last 24 Hours 05/28/18 05/28/18 05/28/18 05/28/18 10:36 11:35 14:30 15:45 Temp 98.6 98.5 98.6 98.5 Pulse 106 84 Resp 18 20 B/P (MAP) 128/77 (94) 131/90 (104) Pulse Ox 95 93 96 99 O2 Delivery Nasal Cannula Nasal Cannula Nasal Cannula Nasal Cannula O2 Flow Rate 3.0 2.0 3.0 2.0 05/28/18 05/28/18 05/28/18 05/28/18 19:00 19:36 20:00 21:26 Temp 97.9 97.9 Pulse 82 Resp 16 18 B/P (MAP) 129/80 (96) Pulse Ox 97 99 99 O2 Delivery Nasal Cannula Nasal Cannula Nasal Cannula Nasal Cannula O2 Flow Rate 3.0 2.0 3.0 2.0 05/28/18 05/28/18 05/28/18 05/29/18 22:26 23:00 23:06 03:00 Temp 97.7 98.2 97.7 98.2 Pulse 102 95 Resp 18 16 16 B/P (MAP) 119/89 (99) 128/90 (103) Pulse Ox 99 100 96 O2 Delivery Nasal Cannula Nasal Cannula Nasal Cannula Nasal Cannula O2 Flow Rate 2.0 3.0 2.0 3.0 05/29/18 05/29/18 05/29/18 04:25 07:17 07:55 Temp 98.1 98.1 Pulse 70 Resp 19 B/P (MAP) 130/95 (107) Pulse Ox 96 98 O2 Delivery Nasal Cannula Nasal Cannula Nasal Cannula O2 Flow Rate 2.0 3.0 2.0 Intake and Output 05/28/18 05/28/18 05/29/18 14:59 22:59 06:59 Intake Total 500 ml 640 ml Output Total 400 ml 600 ml 0 ml Balance 100 ml 40 ml 0 ml TOMAS BAIG MD May 29, 2018 10:13
[2018-05-29 10:28] VITALS: BP 113/75
--- NOTE | 2018-05-29 10:28 | PDOC ---
Infectious Disease Note Subjective: Subjective pt without complaints no f/c/n/v/d ROS: ROS Negative except for above. Vital Signs: Vital Signs Vital Signs Date Time Temp Pulse Resp B/P (MAP) Pulse Ox O2 Delivery O2 Flow Rate FiO2 05/29/18 07:55 98 Nasal Cannula 2.0 05/29/18 07:17 98.1 70 19 130/95 (107) 98.1 Physical Exam: PHYSICAL EXAM GENERAL: The patient is slightly propped up in bed, alert, relaxed appearance. HEENT: Pupils equally round. Normal conjunctivae. Oral cavity: Pharynx pink and dry. NECK: Supple. LUNGS: dec bs at bases, no wheezing HEART: S1, S2. ABDOMEN: Obese, soft, nontender with bowel sounds present. EXTREMITIES: 2+ edema in lower extremities bilaterally. No cyanosis. SKIN: Warm and dry. NEUROLOGIC: Alert and responds appropriately. Medications: Inpatient Meds: Current Medications Medications (Trade) Dose Ordered Sig/Candy Start Time Stop Time Status Last Admin Dose Admin Acetaminophen (Tylenol) 650 mg PRN Q4HRS PRN 05/25/18 15:45 Al Hydroxide/Mg Hydroxide (Mylanta Plus Xs) 30 ml PRN DAILY PRN 05/25/18 15:45 Albuterol Sulfate (Ventolin Neb Soln) 2.5 mg Q4HRS 05/25/18 20:00 05/29/18 07:55 2.5 MG Albuterol/ Ipratropium (Duoneb) 3 ml 1X ONCE 05/25/18 13:30 05/25/18 13:31 DC 05/25/18 13:57 3 ML Alprazolam (Xanax) 0.5 mg BID 05/25/18 21:00 05/29/18 08:27 0.5 MG Atorvastatin Calcium (Lipitor) 10 mg HS 05/25/18 21:00 05/28/18 21:22 10 MG Budesonide (Pulmicort) 0.5 mg RTBID 05/25/18 20:00 05/29/18 07:55 0.5 MG Ceftriaxone Sodium (Rocephin) 1 gm Q24H 05/26/18 13:00 05/28/18 12:58 1 GM Clonidine HCl (Catapres) 0.1 mg PRN Q6HRS PRN 05/25/18 15:45 Cyclobenzaprine HCl (Flexeril) 5 mg PRN TID PRN 05/25/18 16:00 05/28/18 21:26 5 MG Dextrose (Dextrose 50%-Water Syringe) 12.5 gm PRN Q15MIN PRN 05/27/18 11:45 Docusate Sodium (Colace) 100 mg PRN BID PRN 05/25/18 15:45 Doxycycline Hyclate 100 mg/ Dextrose 100 ml @ 50 mls/hr Q12HR 05/25/18 16:00 05/29/18 08:29 50 MLS/HR Enoxaparin Sodium (Lovenox 40mg Syringe) 40 mg Q24H 05/26/18 08:30 UNV Erythromycin (E-Mycin) 250 mg DAILY 05/26/18 09:00 05/29/18 08:27 250 MG Fluticasone Propionate (Flonase) 2 spray DAILY 05/26/18 09:00 05/29/18 08:26 2 SPRAY Guaifenesin (Robitussin) 200 mg PRN Q4HRS PRN 05/25/18 15:45 Insulin Human Lispro (HumaLOG) 0-5 UNITS TIDWMEALS 05/27/18 12:00 05/28/18 17:48 5 UNITS Lactobacillus Rhamnosus (Culturelle) 1 cap BID 05/26/18 21:00 05/29/18 08:27 1 CAP Lorazepam (Ativan) 0.5 mg PRN Q4HRS PRN 05/25/18 15:45 Meloxicam (Mobic) 7.5 mg DAILY 05/26/18 09:00 05/29/18 08:27 7.5 MG Methylprednisolone Sodium Succinate (SOLU-Medrol 125MG VIAL) 125 mg 1X ONCE 05/25/18 13:30 05/25/18 13:31 DC 05/25/18 13:47 125 MG Metoclopramide HCl (Reglan) 5 mg QID 05/25/18 17:00 05/29/18 08:27 5 MG Non-Formulary Medication (Tizanidine Hcl ) 4 mg QID PRN 05/25/18 15:30 05/25/18 16:44 DC Ondansetron HCl (Zofran) 4 mg PRN Q4HRS PRN 05/25/18 15:45 Pantoprazole Sodium (Protonix) 40 mg DAILYAC 05/26/18 13:00 05/29/18 08:27 40 MG Piperacillin Sod/ Tazobactam Sod 3.375 gm/Sodium Chloride 50 ml @ 100 mls/hr 1X ONCE 05/25/18 14:15 05/25/18 14:44 DC 05/25/18 15:02 100 MLS/HR Potassium Chloride (Klor-Con) 20 meq DAILYWBKFT 05/26/18 08:00 05/29/18 08:28 20 MEQ Prednisone (Prednisone) 40 mg DAILY 05/26/18 09:00 05/29/18 08:27 40 MG Sodium Chloride (Normal Saline Flush 3ml) 3 ml QSHIFT PRN 05/25/18 15:45 Tramadol HCl (Ultram) 50 mg PRN Q6HRS PRN 05/25/18 15:30 05/28/18 21:26 50 MG Vancomycin HCl 250 ml @ 250 mls/hr 1X ONCE 05/25/18 14:15 05/25/18 15:14 DC Vitamin D (Vitamin D3) 5,000 unit DAILY 05/26/18 09:00 05/29/18 08:27 5,000 UNIT Zolpidem Tartrate (Ambien) 5 mg PRN QHS PRN 05/25/18 15:45 Labs: Lab Laboratory Tests Test 05/28/18 11:22 05/28/18 16:49 05/28/18 20:37 05/29/18 07:11 Glucose (Fingerstick) 203 mg/dL (70-99) 330 mg/dL (70-99) 193 mg/dL (70-99) 150 mg/dL (70-99) Objective: Assessment: Acute on chronic respiratory failure, O2 dependent 3L resolved Exacerbation COPD improving Bullous emphysema Lactic acidosis HTN Plan: Plan of Care Doxy and Rocephin for today transition to po augmentin and doxycycline starting tomorrow script in chart Influenza screen Supportive care D/W WARNER CARVER MD May 29, 2018 10:28
[2018-05-29] MEDS: traMADol 50 MG TABLET PO PRN ×2 (10:40→21:38)
[2018-05-29] MEDS: CYCLOBENZAPRINE 10 MG TABLET. PO PRN (10:40)
--- NOTE | 2018-05-29 12:12 | PDOC ---
PULMONARY PROGRESS NOTES Subjective tired did not used BIPAP Vitals Vital Signs Date Time Temp Pulse Resp B/P (MAP) Pulse Ox O2 Delivery O2 Flow Rate FiO2 05/29/18 11:46 Nasal Cannula 2.0 05/29/18 10:28 98.5 106 20 113/75 (88) 97 98.5 General: Alert, No acute distress Lungs: Other Cardiovascular: S1, S2 Abdomen: Soft, Non-tender Neuro Exam: Alert Extremities: No Edema, Other Skin: Warm Labs Laboratory Tests Test 05/27/18 17:26 05/27/18 20:06 05/28/18 06:51 05/28/18 08:15 Glucose (Fingerstick) 183 mg/dL (70-99) 160 mg/dL (70-99) 106 mg/dL (70-99) White Blood Count 6.4 x10^3/uL (4.0-11.0) Red Blood Count 3.71 x10^6/uL (4.30-5.70) Hemoglobin 11.3 g/dL (13.0-17.5) Hematocrit 33.9 % (39.0-53.0) Mean Corpuscular Volume 91 fL (79-100) Mean Corpuscular Hemoglobin 30 pg (25-35) Mean Corpuscular Hemoglobin Concent 33 g/dL (31-37) Red Cell Distribution Width 16.5 % (11.5-14.5) Platelet Count 152 x10^3/uL (140-400) Neutrophils (%) (Auto) 85 % (31-73) Lymphocytes (%) (Auto) 9 % (24-48) Monocytes (%) (Auto) 6 % (0-9) Eosinophils (%) (Auto) 1 % (0-3) Basophils (%) (Auto) 0 % (0-3) Neutrophils # (Auto) 5.5 x10^3uL (1.8-7.7) Lymphocytes # (Auto) 0.5 x10^3/uL (1.0-4.8) Monocytes # (Auto) 0.4 x10^3/uL (0.0-1.1) Eosinophils # (Auto) 0.0 x10^3/uL (0.0-0.7) Basophils # (Auto) 0.0 x10^3/uL (0.0-0.2) Sodium Level 142 mmol/L (136-145) Potassium Level 3.7 mmol/L (3.5-5.1) Chloride Level 105 mmol/L (98-107) Carbon Dioxide Level 32 mmol/L (21-32) Anion Gap 5 (6-14) Blood Urea Nitrogen 11 mg/dL (8-26) Creatinine 0.8 mg/dL (0.7-1.3) Estimated GFR (Cockcroft-Gault) 120.1 Glucose Level 109 mg/dL (70-99) Calcium Level 8.7 mg/dL (8.5-10.1) Test 05/28/18 11:22 05/28/18 16:49 05/28/18 20:37 05/29/18 07:11 Glucose (Fingerstick) 203 mg/dL (70-99) 330 mg/dL (70-99) 193 mg/dL (70-99) 150 mg/dL (70-99) Test 05/29/18 11:16 Glucose (Fingerstick) 146 mg/dL (70-99) Laboratory Tests Test 05/28/18 16:49 05/28/18 20:37 05/29/18 07:11 05/29/18 11:16 Glucose (Fingerstick) 330 mg/dL (70-99) 193 mg/dL (70-99) 150 mg/dL (70-99) 146 mg/dL (70-99) Medications Active Scripts Medications Dose Route/Sig Max Daily Dose Days Date Category Prednisone 50 Mg Tablet 1 Tab PO DAILY 05/10/18 Rx Ventolin Hfa Inhaler (Albuterol Sulfate) 18 Gm Hfa.aer.ad 2 Puff INH Q4HRS 05/10/18 Rx Tramadol Hcl 50 Mg Tablet 50 Mg PO Q6HRS PRN 05/10/18 Rx Prednisone 20 Mg Tablet 1 Tab PO DAILY 05/05/18 Rx Tramadol Hcl 50 Mg Tablet 50-100 Mg PO PRN Q6HRS PRN 6 04/30/18 Rx Doxycycline Hyclate 100 Mg Capsule 1 Cap PO BID 04/17/18 Rx Medrol (Methylprednisolone) 4 Mg Tab.ds.pk 1 Pkg PO UD 04/17/18 Rx Mobic (Meloxicam) 7.5 Mg Tablet 1-2 Tab PO DAILY 5 04/17/18 Rx Cyclobenzaprine Hcl 5 Mg Tablet 5 Mg PO PRN TID PRN 04/08/18 Rx Prednisone 50 Mg Tablet 1 Tab PO DAILY 03/27/18 Rx Erythromycin (Erythromycin Base) 250 Mg Tablet 250 Mg PO DAILY 03/15/18 Reported Vitamin D3 (Cholecalciferol (Vitamin D3)) 5,000 Unit Tablet 5,000 Unit PO DAILY 03/15/18 Reported Reglan (Metoclopramide Hcl) 10 Mg Tablet 0.5 Tab PO QID 30 02/14/18 Rx Xanax (Alprazolam) 0.5 Mg Tablet 1 Tab PO BID 02/03/18 Rx Prednisone 20 Mg Tablet 40 Mg PO DAILY 01/31/18 Rx Potassium Chloride 20 Meq Tablet.er 20 Meq PO DAILY 01/13/18 Reported Protonix (Pantoprazole Sodium) 20 Mg Tablet.dr 1 Tab PO DAILY 11/18/17 Reported Flonase Allergy Relief (Fluticasone Propionate) 9.9 Ml [place].susp 2 Sprays NS DAILY 11/18/17 Reported Furosemide 20 Mg Tablet 1 Tab PO DAILY 09/10/17 Rx Atorvastatin Calcium 10 Mg Tablet 10 Mg PO HS 08/21/17 Reported Albuterol Sulfate Neb Soln (Albuterol Sulfate) 2.5 Mg/3 Ml Vial.neb 1 Vial NEB PRN Q4HRS 07/10/17 Rx Symbicort 160-4.5 Mcg Inhaler (Budesonide/Formoterol Fumarate) 10.2 Gm Hfa.aer.ad 2 Puff IH BID 09/21/15 Reported Spiriva (Tiotropium [place]) 18 Mcg Cap.w.dev 2 Inh IH DAILY 09/21/15 Reported Impression . 1. [id number] respiratory failure secondary to acute bronchitis, acute exacerbation of chronic obstructive pulmonary disease, . 2. ? Sepsis. 3. Acute bronchitis. 4. Acute exacerbation of chronic obstructive pulmonary disease. 5. History of congestive heart failure. 6. Hypertension. 7. Ex-smoker 8. Abnormal ct chest in Feb with large left upper lobe bullae and interstitial infiltrates right lung. Respiratory bronchiolitis ILD related to tobacco vs inflammatory. would repeat ct in am. Plan . 1. Titrate FiO2 to keep oxygen saturation 92%. 2. Continue bronchodilator. 3. Continue prednisone with gradual taper 4. Encouraged pt to use home CPAP regularly/ BIPAP while in house qhs 5. Lovenox for DVT prophylaxis. 6. repeat chest ct in am 7. Continue PO abx 8. smoking cessation counseling provided 9. Pt would benefit with evaluation for bullectomy at [facility] VIN MEAD MD May 29, 2018 12:12
[2018-05-29] MEDS: cefTRIAXone IV Push 1 GM VIAL. IVP SCH (13:00)
[2018-05-29 15:10] VITALS: BP 126/84
[2018-05-29] MEDS: ENOXAPARIN 40 MG/0.4 ML SYRINGE. SQ SCH (16:00)
--- NOTE | 2018-05-29 16:26 | NUR ---
Spoke with pt regarding HH and currently he is declining HH services. Pt stated he has been staying with his sister in [facility] and still lives in [place] side sometimes as well. SW discussed that could be a potential barrier in setting up HH as well. MARILEE RINCON.
[2018-05-29 19:57] VITALS: BP 127/75
[2018-05-29] MEDS: AMOXICILLIN/K CLAV 875/125MG TABLET. PO SCH (21:33)
[2018-05-29] MEDS: ATORVASTATIN CALCIUM 10 MG TABLET. PO SCH (21:33)
[2018-05-29] MEDS: DOXYCYCLINE HYCLATE 100 MG TABLET PO SCH (21:33)
[2018-05-29 23:17] VITALS: BP 130/95
[2018-05-30 03:25] VITALS: BP 145/88
[2018-05-30] MEDS: ALBUTEROL SULFATE 2.5 MG/3 ML NEBU. NEB SCH ×5 (04:00→20:43)
[2018-05-30 07:13] LABS: BASO % 0 % (0-3); EOS % 0 % (0-3); HEMOGLOBIN 10.2 g/dL (13.0-17.5); LYMPH # 0.4 x10^3/uL (1.0-4.8); LYMPH % 6 % (24-48); MEAN CORPUSCULAR HEMOGLOBIN 31 pg (25-35); MEAN CORPUSCULAR HGB CONC 33 g/dL (31-37); MEAN CORPUSCULAR VOLUME 92 fL (79-100); MONO # 0.3 x10^3/uL (0.0-1.1); MONO % 5 % (0-9); NEUT # 5.4 x10^3uL (1.8-7.7); NEUT % 89 % (31-73); PLATELET COUNT 156 x10^3/uL (140-400); RED BLOOD COUNT 3.35 x10^6/uL (4.30-5.70); RED CELL DISTRIBUTION WIDTH 16.2 % (11.5-14.5); WHITE BLOOD COUNT 6.1 x10^3/uL (4.0-11.0)
[2018-05-30 07:22] VITALS: BP 133/89
[2018-05-30 07:34] LABS: ALBUMIN 2.7 g/dL (3.4-5.0); ALBUMIN/GLOBULIN RATIO 0.9 (1.0-1.7); CALCIUM 8.7 mg/dL (8.5-10.1); CREATININE 0.7 mg/dL (0.7-1.3); GFR 140.2; POTASSIUM 3.7 mmol/L (3.5-5.1); TOTAL BILIRUBIN 0.3 mg/dL (0.2-1.0); TOTAL PROTEIN 5.6 g/dL (6.4-8.2)
[2018-05-30] MEDS: INSULIN LISPRO 300 UNITS/3 ML INSULN.PEN. SQ SCH ×3 (08:00→17:28)
[2018-05-30] MEDS: BUDESONIDE 0.5 MG/2 ML NEBU. NEB SCH ×2 (08:06→20:43)
[2018-05-30] MEDS: AMOXICILLIN/K CLAV 875/125MG TABLET. PO SCH (08:45)
[2018-05-30] MEDS: POTASSIUM CHLORIDE 20 MEQ TABLET.ER. PO SCH (08:47)
[2018-05-30] MEDS: predniSONE 20 MG TABLET PO SCH (08:47)
[2018-05-30] MEDS: traMADol 50 MG TABLET PO PRN ×2 (08:49→17:22)
[2018-05-30] MEDS: MELOXICAM 7.5 MG TABLET PO SCH (08:50)
[2018-05-30] MEDS: CHOLECALCIFEROL (VITAMIN D3) 5,000 UNIT CAPSULE PO SCH (08:50)
[2018-05-30] MEDS: FLUTICASONE 50MCG/NASAL SPRAY 16GM BOTTLE. NS SCH (08:50)
[2018-05-30] MEDS: ERYTHROMYCIN BASE 250 MG TABLET PO SCH (08:51)
[2018-05-30] MEDS: METOCLOPRAMIDE 10 MG TABLET. PO SCH ×3 (08:51→17:23)
[2018-05-30] MEDS: DOXYCYCLINE HYCLATE 100 MG TABLET PO SCH (08:52)
[2018-05-30] MEDS: LACTOBACILLUS RHAMNOSUS GG 1 CAPSULE. PO SCH (08:53)
[2018-05-30] MEDS: PANTOPRAZOLE 40 MG TABLET.DR. PO SCH (08:53)
[2018-05-30] MEDS: ALPRAZolam 0.5 MG TABLET PO SCH (08:55)
--- NOTE | 2018-05-30 09:29 | RAD ---
CT of the chest without contrast, 05/30/2018: HISTORY: Interstitial lung disease, COPD Noncontrast scans were obtained and compared to a study from 03/15/2018. There are emphysematous changes in both lungs. These are most severe on the left with a large bulla in the left upper chest. There is mild associated [id number] shift of the mediastinum. Scattered linear opacities in both lungs are compatible with scars. Mild infiltrate present posteriorly in the right lung base on the previous study has largely cleared. There is a 12 mm spiculated part solid nodule in the posterolateral aspect of the right lower lobe as seen on image 34 of series #2 which was not evident on the previous study. The thoracic aorta is of normal caliber. Minimal coronary artery calcifications are noted. Several small mediastinal lymph nodes are identified without pathologic enlargement. There is no evidence of pleural fluid. IMPRESSION: 1. Severe emphysema with a prominent bullous component on the left. 2. Chronic pleural/parenchymal scarring. 3. New small spiculated opacity in the right lower lobe which may be inflammatory or neoplastic. CT follow-up is suggested. PQRS Compliance Statement: One or more of the following individualized dose reduction techniques were utilized for this examination: 1. Automated exposure control 2. Adjustment of the mA and/or kV according to patient size 3. Use of iterative reconstruction technique Electronically signed by: Ciro Becerra MD (05/30/2018 9:26 AM) [facility]
[2018-05-30 10:58] VITALS: BP 143/80
--- NOTE | 2018-05-30 11:12 | PDOC ---
PROGRESS NOTES History of Present Illness History of Present Illness VTE Prophylaxis Ordered VTE Prophylaxis Devices: Yes VTE Pharmacological Prophylaxi: Yes DISCHARGE DX Assessment/Plan impression/ plan Acute on chronic respiratory failure - will give steroids, qid nebs Left ventricle systolic function is low normal. The Ejection Fraction is 50%. Transmitral Doppler flow pattern is Grade [id number] filling dynamics. The left atrium size is normal. COPD with exacerbation and acute bronchitis - iv doxycycline, consult pulm. Needs bullectomy consideration at [facility] as has previously been discussed Severe emphysema with large bulla at the left apex, recent ct Patchy ground-glass opacity throughout both lungs with some increasing reticulonodular opacity along the bronchovascular bundles of the lower lobes. Consider infectious or inflammatory processes or chronic aspiration. Dysphagia with prior history of Rosanne esophagitis - hypertension CHF chronic combined, EF 50% acute exacerbation, GERD - cont PPI1. reflux to the level of the upper-mid thoracic esophagus. Anemia - of chronic disease. Avoid nephrotoxic meds, IVF CHRONIC HYPERCAPNIC RESP FAILURE Lactic acidosis sec volume depletion Chronic sinusitis NORMOCYTIC ANEMIA 05/28 feeling better, but not back to baseline per patient 05/29, STATES HE HAD A BAD NIGHT NOT SLEEPNG WELL, WEAK plan blood cult pulm consult duonebs qid o2 support iv doxycycline 100mg bid, rocephin IV Q 24 HRS 1 GM dvt prophylaxis HOB AT 30 DEGREES to avoid reflux FOLLOW LACTIC ACID TELE ECHO abg ID FOLLOWING D/W DR BOSTON BERNSTEIN TO D/C TODAY, HOME HEALTH 33 MIN PT EXAM, D/C PLANNING CHART REVIEW,> 50% OF time spent with exam, chart review, pt care coordination Vitals Vitals Vital Signs Date Time Temp Pulse Resp B/P (MAP) Pulse Ox O2 Delivery O2 Flow Rate FiO2 05/30/18 10:58 97.9 113 20 143/80 (101) 92 Room Air 97.9 05/30/18 10:00 2.0 Physical Exam Physical Exam GENERAL: The patient is slightly propped up in bed, alert, relaxed appearance. HEENT: Pupils equally round. Normal conjunctivae. Oral cavity: Pharynx pink and dry. NECK: Supple. LUNGS: dec bs at bases, no wheezing HEART: S1, S2. ABDOMEN: Obese, soft, nontender with bowel sounds present. EXTREMITIES: 2+ edema in lower extremities bilaterally. No cyanosis. SKIN: Warm and dry. NEUROLOGIC: Alert and responds appropriately. General: Alert, Oriented X3, Cooperative, mild distress, moderate distress Heart: Regular rate, Normal S1, No murmurs Lungs: Other Abdomen: Soft Extremities: No cyanosis Skin: No significant lesion Labs LABS Laboratory Tests Test 05/29/18 11:16 05/29/18 17:10 05/29/18 20:29 05/30/18 05:30 Glucose (Fingerstick) 146 mg/dL (70-99) 309 mg/dL (70-99) 154 mg/dL (70-99) White Blood Count 6.1 x10^3/uL (4.0-11.0) Red Blood Count 3.35 x10^6/uL (4.30-5.70) Hemoglobin 10.2 g/dL (13.0-17.5) Hematocrit 31.0 % (39.0-53.0) Mean Corpuscular Volume 92 fL (79-100) Mean Corpuscular Hemoglobin 31 pg (25-35) Mean Corpuscular Hemoglobin Concent 33 g/dL (31-37) Red Cell Distribution Width 16.2 % (11.5-14.5) Platelet Count 156 x10^3/uL (140-400) Neutrophils (%) (Auto) 89 % (31-73) Lymphocytes (%) (Auto) 6 % (24-48) Monocytes (%) (Auto) 5 % (0-9) Eosinophils (%) (Auto) 0 % (0-3) Basophils (%) (Auto) 0 % (0-3) Neutrophils # (Auto) 5.4 x10^3uL (1.8-7.7) Lymphocytes # (Auto) 0.4 x10^3/uL (1.0-4.8) Monocytes # (Auto) 0.3 x10^3/uL (0.0-1.1) Eosinophils # (Auto) 0.0 x10^3/uL (0.0-0.7) Basophils # (Auto) 0.0 x10^3/uL (0.0-0.2) Sodium Level 142 mmol/L (136-145) Potassium Level 3.7 mmol/L (3.5-5.1) Chloride Level 103 mmol/L (98-107) Carbon Dioxide Level 33 mmol/L (21-32) Anion Gap 6 (6-14) Blood Urea Nitrogen 16 mg/dL (8-26) Creatinine 0.7 mg/dL (0.7-1.3) Estimated GFR (Cockcroft-Gault) 140.2 BUN/Creatinine Ratio 23 (6-20) Glucose Level 198 mg/dL (70-99) Calcium Level 8.7 mg/dL (8.5-10.1) Total Bilirubin 0.3 mg/dL (0.2-1.0) Aspartate Amino Transf (AST/SGOT) 13 U/L (15-37) Alanine Aminotransferase (ALT/SGPT) 27 U/L (16-63) Alkaline Phosphatase 103 U/L (46-116) Total Protein 5.6 g/dL (6.4-8.2) Albumin 2.7 g/dL (3.4-5.0) Albumin/Globulin Ratio 0.9 (1.0-1.7) Test 05/30/18 07:29 Glucose (Fingerstick) 142 mg/dL (70-99) Assessment and Plan Assessmemt and Plan Problems Medical Problems: (1) COPD exacerbation Status: Acute (2) Severe sepsis Status: Acute Comment Review of Relevant I have reviewed the following items franki (where applicable) has been applied. Labs Laboratory Tests Test 05/28/18 11:22 05/28/18 16:49 05/28/18 20:37 05/29/18 07:11 Glucose (Fingerstick) 203 mg/dL (70-99) 330 mg/dL (70-99) 193 mg/dL (70-99) 150 mg/dL (70-99) Test 05/29/18 11:16 05/29/18 17:10 05/29/18 20:29 05/30/18 05:30 Glucose (Fingerstick) 146 mg/dL (70-99) 309 mg/dL (70-99) 154 mg/dL (70-99) White Blood Count 6.1 x10^3/uL (4.0-11.0) Red Blood Count 3.35 x10^6/uL (4.30-5.70) Hemoglobin 10.2 g/dL (13.0-17.5) Hematocrit 31.0 % (39.0-53.0) Mean Corpuscular Volume 92 fL (79-100) Mean Corpuscular Hemoglobin 31 pg (25-35) Mean Corpuscular Hemoglobin Concent 33 g/dL (31-37) Red Cell Distribution Width 16.2 % (11.5-14.5) Platelet Count 156 x10^3/uL (140-400) Neutrophils (%) (Auto) 89 % (31-73) Lymphocytes (%) (Auto) 6 % (24-48) Monocytes (%) (Auto) 5 % (0-9) Eosinophils (%) (Auto) 0 % (0-3) Basophils (%) (Auto) 0 % (0-3) Neutrophils # (Auto) 5.4 x10^3uL (1.8-7.7) Lymphocytes # (Auto) 0.4 x10^3/uL (1.0-4.8) Monocytes # (Auto) 0.3 x10^3/uL (0.0-1.1) Eosinophils # (Auto) 0.0 x10^3/uL (0.0-0.7) Basophils # (Auto) 0.0 x10^3/uL (0.0-0.2) Sodium Level 142 mmol/L (136-145) Potassium Level 3.7 mmol/L (3.5-5.1) Chloride Level 103 mmol/L (98-107) Carbon Dioxide Level 33 mmol/L (21-32) Anion Gap 6 (6-14) Blood Urea Nitrogen 16 mg/dL (8-26) Creatinine 0.7 mg/dL (0.7-1.3) Estimated GFR (Cockcroft-Gault) 140.2 BUN/Creatinine Ratio 23 (6-20) Glucose Level 198 mg/dL (70-99) Calcium Level 8.7 mg/dL (8.5-10.1) Total Bilirubin 0.3 mg/dL (0.2-1.0) Aspartate Amino Transf (AST/SGOT) 13 U/L (15-37) Alanine Aminotransferase (ALT/SGPT) 27 U/L (16-63) Alkaline Phosphatase 103 U/L (46-116) Total Protein 5.6 g/dL (6.4-8.2) Albumin 2.7 g/dL (3.4-5.0) Albumin/Globulin Ratio 0.9 (1.0-1.7) Test 05/30/18 07:29 Glucose (Fingerstick) 142 mg/dL (70-99) Laboratory Tests Test 05/29/18 11:16 05/29/18 17:10 05/29/18 20:29 05/30/18 05:30 Glucose (Fingerstick) 146 mg/dL (70-99) 309 mg/dL (70-99) 154 mg/dL (70-99) White Blood Count 6.1 x10^3/uL (4.0-11.0) Red Blood Count 3.35 x10^6/uL (4.30-5.70) Hemoglobin 10.2 g/dL (13.0-17.5) Hematocrit 31.0 % (39.0-53.0) Mean Corpuscular Volume 92 fL (79-100) Mean Corpuscular Hemoglobin 31 pg (25-35) Mean Corpuscular Hemoglobin Concent 33 g/dL (31-37) Red Cell Distribution Width 16.2 % (11.5-14.5) Platelet Count 156 x10^3/uL (140-400) Neutrophils (%) (Auto) 89 % (31-73) Lymphocytes (%) (Auto) 6 % (24-48) Monocytes (%) (Auto) 5 % (0-9) Eosinophils (%) (Auto) 0 % (0-3) Basophils (%) (Auto) 0 % (0-3) Neutrophils # (Auto) 5.4 x10^3uL (1.8-7.7) Lymphocytes # (Auto) 0.4 x10^3/uL (1.0-4.8) Monocytes # (Auto) 0.3 x10^3/uL (0.0-1.1) Eosinophils # (Auto) 0.0 x10^3/uL (0.0-0.7) Basophils # (Auto) 0.0 x10^3/uL (0.0-0.2) Sodium Level 142 mmol/L (136-145) Potassium Level 3.7 mmol/L (3.5-5.1) Chloride Level 103 mmol/L (98-107) Carbon Dioxide Level 33 mmol/L (21-32) Anion Gap 6 (6-14) Blood Urea Nitrogen 16 mg/dL (8-26) Creatinine 0.7 mg/dL (0.7-1.3) Estimated GFR (Cockcroft-Gault) 140.2 BUN/Creatinine Ratio 23 (6-20) Glucose Level 198 mg/dL (70-99) Calcium Level 8.7 mg/dL (8.5-10.1) Total Bilirubin 0.3 mg/dL (0.2-1.0) Aspartate Amino Transf (AST/SGOT) 13 U/L (15-37) Alanine Aminotransferase (ALT/SGPT) 27 U/L (16-63) Alkaline Phosphatase 103 U/L (46-116) Total Protein 5.6 g/dL (6.4-8.2) Albumin 2.7 g/dL (3.4-5.0) Albumin/Globulin Ratio 0.9 (1.0-1.7) Test 05/30/18 07:29 Glucose (Fingerstick) 142 mg/dL (70-99) Microbiology 05/25/18 Blood Culture - Preliminary, Resulted NO GROWTH AFTER 4 DAYS Medications Current Medications Sodium Chloride 1,000 ml @ 1,000 mls/hr Q1H IV Last administered on 05/25/18at 13:48; Start 05/25/18 at 13:22; Stop 05/25/18 at 14:21; Status DC Albuterol/ Ipratropium (Duoneb) 3 ml 1X ONCE NEB Last administered on at 13:57; Start 05/25/18 at 13:30; Stop 05/25/18 at 13:31; Status DC Methylprednisolone Sodium Succinate (SOLU-Medrol 125MG VIAL) 125 mg 1X ONCE IV Last administered on 05/25/18at 13:47; Start 05/25/18 at 13:30; Stop 05/25/18 at 13:31; Status DC Ceftriaxone Sodium (Rocephin) 1 gm 1X ONCE IVP ; Start 05/25/18 at 14:15; Stop 05/25/18 at 14:15; Status DC Piperacillin Sod/ Tazobactam Sod 3.375 gm/Sodium Chloride 50 ml @ 100 mls/hr 1X ONCE IV Last administered on 05/25/18at 15:02; Start 05/25/18 at 14:15; Stop 05/25/18 at 14:44; Status DC Vancomycin HCl 250 ml @ 250 mls/hr 1X ONCE IV ; Start 05/25/18 at 14:15; Stop 05/25/18 at 15:14; Status DC Sodium Chloride 1,000 ml @ 1,000 mls/hr 1X ONCE IV ; Start 05/25/18 at 14:15; Stop 05/25/18 at 15:14; Status DC Sodium Chloride 1,000 ml @ 1,000 mls/hr 1X ONCE IV ; Start 05/25/18 at 14:15; Stop 05/25/18 at 15:14; Status DC Sodium Chloride 1,000 ml @ 150 mls/hr Q6H40M IV Last administered on at 17:58; Start 05/25/18 at 14:21; Stop 05/26/18 at 14:20; Status DC Albuterol Sulfate (Ventolin Neb Soln) 2.5 mg PRN Q4HRS PRN NEB SHORTNESS OF BREATH Last administered on 05/25/18at 16:16; Start 05/25/18 at 15:30 Alprazolam (Xanax) 0.5 mg BID PO Last administered on 05/29/18at 21:34; Start at 21:00 Atorvastatin Calcium (Lipitor) 10 mg HS PO Last administered on 05/29/18 21:33 ; Start 05/25/18 at 21:00 Erythromycin (E-Mycin) 250 mg DAILY PO Last administered on 05/30/18at 08:51; Start 05/26/18 at 09:00 Metoclopramide HCl (Reglan) 5 mg QID PO Last administered on 05/30/18 08:51; Start 05/25/18 at 17:00 Prednisone (Prednisone) 40 mg DAILY PO Last administered on 05/30/18 08:47; Start 05/26/18 at 09:00 Tramadol HCl (Ultram) 50 mg PRN Q6HRS PRN PO PAIN Last administered on 08:49; Start 05/25/18 at 15:30 Albuterol Sulfate (Ventolin Neb Soln) 2.5 mg Q4HRS NEB Last administered on at 08:06; Start 05/25/18 at 20:00 Budesonide (Pulmicort) 0.5 mg RTBID NEB Last administered on 05/30/18 08:06; Start 05/25/18 at 20:00 Vitamin D (Vitamin D3) 5,000 unit DAILY PO Last administered on 05/30/18 08:50 ; Start 05/26/18 at 09:00 Cyclobenzaprine HCl (Flexeril) 5 mg PRN TID PRN PO MUSCLE SPASMS Last administered on 05/29/18at 10:40; Start 05/25/18 at 16:00 Fluticasone Propionate (Flonase) 2 spray DAILY NS Last administered on 08:50; Start 05/26/18 at 09:00 Meloxicam (Mobic) 7.5 mg DAILY PO Last administered on 05/30/18 08:50; Start 05/26/18 at 09:00 Potassium Chloride (Klor-Con) 20 meq [id number] PO Last administered on 08:47; Start 05/26/18 at 08:00 Non-Formulary Medication (Tizanidine Hcl ) 4 mg QID PRN PO MUSCLE SPASMS; Start 05/25/18 at 15:30; Stop 05/25/18 at 16:44; Status DC Doxycycline Hyclate 100 mg/ Dextrose 100 ml @ 50 mls/hr Q12HR IV Last administered on 05/29/18 08:29; Start 05/25/18 at 16:00; Stop 05/29/18 at 16:06 ; Status DC Sodium Chloride 1,000 ml @ 125 mls/hr 1X ONCE IV Last administered on 18:20; Start 05/25/18 at 15:30; Stop 05/25/18 at 23:29; Status DC Enoxaparin Sodium (Lovenox 40mg Syringe) 40 mg Q24H SQ Last administered on at 18:21; Start 05/25/18 at 16:00 Sodium Chloride (Normal Saline Flush 3ml) 3 ml QSHIFT PRN IV AFTER MEDS AND BLOOD DRAWS; Start 05/25/18 at 15:45 Ondansetron HCl (Zofran) 4 mg PRN Q4HRS PRN IV NAUSEA/VOMITING; Start 05/25/18 at 15:45 Zolpidem Tartrate (Ambien) 5 mg PRN QHS PRN PO INSOMNIA; Start 05/25/18 at 15: 45 Acetaminophen (Tylenol) 650 mg PRN Q4HRS PRN PO TEMP OVER 100.4F OR MILD PAIN; Start 05/25/18 at 15:45 Al Hydroxide/Mg Hydroxide (Mylanta Plus Xs) 30 ml PRN DAILY PRN PO HEARTBURN / GAS; Start 05/25/18 at 15:45 Clonidine HCl (Catapres) 0.1 mg PRN Q6HRS PRN PO SBP>160 OR DBP>90; Start 05/25 at 15:45 Docusate Sodium (Colace) 100 mg PRN BID PRN PO CONSTIPATION; Start 05/25/18 at 15:45 Guaifenesin (Robitussin) 200 mg PRN Q4HRS PRN PO COUGH; Start 05/25/18 at 15:45 Lorazepam (Ativan) 0.5 mg PRN Q4HRS PRN PO ANXIETY / AGITATION; Start 05/25/18 at 15:45 Ceftriaxone Sodium (Rocephin) 1 gm Q24H IVP Last administered on 05/28/18at 12: 58; Start 05/26/18 at 13:00; Stop 05/29/18 at 16:06; Status DC Pantoprazole Sodium (Protonix) 40 mg DAILYAC PO Last administered on 05/30/18at 08:53; Start 05/26/18 at 13:00 Enoxaparin Sodium (Lovenox 40mg Syringe) 40 mg Q24H SQ ; Start 05/26/18 at 08:30 ; Status UNV Lactobacillus Rhamnosus (Culturelle) 1 cap BID PO Last administered on at 08:53; Start 05/26/18 at 21:00 Insulin Human Lispro (HumaLOG) 0-5 UNITS TIDWMEALS SQ Last administered on 05/29at 17:37; Start 05/27/18 at 12:00 Dextrose (Dextrose 50%-Water Syringe) 12.5 gm PRN Q15MIN PRN IV SEE COMMENTS; Start 05/27/18 at 11:45 Doxycycline Hyclate (Vibra-Tab) 100 mg BID PO Last administered on 05/30/18at 08 :52; Start 05/29/18 at 21:00 Amoxicillin/ Clavulanate Potassium (Augmentin 875/ 125mg) 1 tab BID PO Last administered on 05/30/18at 08:45; Start 05/29/18 at 21:00 Active Scripts Active Prednisone 50 Mg Tablet 1 Tab PO DAILY Ventolin Hfa Inhaler (Albuterol Sulfate) 18 Gm Hfa.aer.ad 2 Puff INH Q4HRS Tramadol Hcl 50 Mg Tablet 50 Mg PO Q6HRS PRN Prednisone 20 Mg Tablet 1 Tab PO DAILY Tramadol Hcl 50 Mg Tablet 50-100 Mg PO PRN Q6HRS PRN 6 Days Doxycycline Hyclate 100 Mg Capsule 1 Cap PO BID Medrol (Methylprednisolone) 4 Mg Tab.ds.pk 1 Pkg PO UD Mobic (Meloxicam) 7.5 Mg Tablet 1-2 Tab PO DAILY 5 Days Cyclobenzaprine Hcl 5 Mg Tablet 5 Mg PO PRN TID PRN Prednisone 50 Mg Tablet 1 Tab PO DAILY Reglan (Metoclopramide Hcl) 10 Mg Tablet 0.5 Tab PO QID 30 Days Xanax (Alprazolam) 0.5 Mg Tablet 1 Tab PO BID Prednisone 20 Mg Tablet 40 Mg PO DAILY Furosemide 20 Mg Tablet 1 Tab PO DAILY Albuterol Sulfate Neb Soln (Albuterol Sulfate) 2.5 Mg/3 Ml Vial.neb 1 Vial NEB PRN Q4HRS Reported Erythromycin (Erythromycin Base) 250 Mg Tablet 250 Mg PO DAILY Vitamin D3 (Cholecalciferol (Vitamin D3)) 5,000 Unit Tablet 5,000 Unit PO DAILY Potassium Chloride 20 Meq Tablet.er 20 Meq PO DAILY Protonix (Pantoprazole Sodium) 20 Mg Tablet.dr 1 Tab PO DAILY Flonase Allergy Relief (Fluticasone Propionate) 9.9 Ml [place].susp 2 Sprays NS DAILY Atorvastatin Calcium 10 Mg Tablet 10 Mg PO HS Symbicort 160-4.5 Mcg Inhaler (Budesonide/Formoterol Fumarate) 10.2 Gm Hfa.aer.ad 2 Puff IH BID Spiriva (Tiotropium Carrizozo) 18 Mcg Cap.w.dev 2 Inh IH DAILY Vitals/I & O Vital Sign - Last 24 Hours 05/29/18 05/29/18 05/29/18 05/29/18 11:46 15:10 16:38 19:57 Temp 97.9 98.0 97.9 98.0 Pulse 119 110 Resp 18 20 B/P (MAP) 126/84 (98) 127/75 (92) Pulse Ox 100 97 O2 Delivery Nasal Cannula Nasal Cannula Nasal Cannula Nasal Cannula O2 Flow Rate 2.0 3.0 2.0 3.0 05/29/18 05/29/18 05/29/18 05/29/18 20:00 20:21 20:22 21:38 Resp 20 Pulse Ox 96 O2 Delivery Nasal Cannula Nasal Cannula Nasal Cannula Room Air O2 Flow Rate 2.0 2.0 2.0 2.0 05/29/18 05/29/18 05/29/18 05/30/18 22:38 23:17 23:30 03:25 Temp 98.3 97.7 98.3 97.7 Pulse 94 86 Resp 20 16 16 B/P (MAP) 130/95 (107) 145/88 (107) Pulse Ox 96 98 O2 Delivery Nasal Cannula Nasal Cannula Nasal Cannula O2 Flow Rate 3.0 2.0 3.0 05/30/18 05/30/18 05/30/18 05/30/18 04:10 04:18 07:22 08:13 Temp 97.7 97.7 Pulse 93 Resp 20 B/P (MAP) 133/89 (104) Pulse Ox 99 98 O2 Delivery Nasal Cannula BiPAP/CPAP BiPAP/CPAP Nasal Cannula O2 Flow Rate 2.0 2.0 05/30/18 05/30/18 05/30/18 08:49 10:00 10:58 Temp 97.9 97.9 Pulse 113 Resp 20 B/P (MAP) 143/80 (101) Pulse Ox 98 98 92 O2 Delivery Nasal Cannula Nasal Cannula Room Air O2 Flow Rate 2.0 2.0 Intake and Output 05/29/18 05/29/18 05/30/18 14:59 22:59 06:59 Intake Total 700 ml 2140 ml 340 ml Output Total 1000 ml Balance 700 ml 1140 ml 340 ml TOMAS BAIG MD May 30, 2018 11:12
--- NOTE | 2018-05-30 11:16 | PDOC ---
PULMONARY PROGRESS NOTES Subjective tired no soa, used for few hrs BIPAP last night Vitals Vital Signs Date Time Temp Pulse Resp B/P (MAP) Pulse Ox O2 Delivery O2 Flow Rate FiO2 05/30/18 10:58 97.9 113 20 143/80 (101) 92 Room Air 97.9 05/30/18 10:00 2.0 General: Alert, No acute distress Lungs: Other Cardiovascular: S1, S2 Abdomen: Soft, Non-tender Neuro Exam: Alert Extremities: No Edema, Other Skin: Warm Labs Laboratory Tests Test 05/28/18 11:22 05/28/18 16:49 05/28/18 20:37 05/29/18 07:11 Glucose (Fingerstick) 203 mg/dL (70-99) 330 mg/dL (70-99) 193 mg/dL (70-99) 150 mg/dL (70-99) Test 05/29/18 11:16 05/29/18 17:10 05/29/18 20:29 05/30/18 05:30 Glucose (Fingerstick) 146 mg/dL (70-99) 309 mg/dL (70-99) 154 mg/dL (70-99) White Blood Count 6.1 x10^3/uL (4.0-11.0) Red Blood Count 3.35 x10^6/uL (4.30-5.70) Hemoglobin 10.2 g/dL (13.0-17.5) Hematocrit 31.0 % (39.0-53.0) Mean Corpuscular Volume 92 fL (79-100) Mean Corpuscular Hemoglobin 31 pg (25-35) Mean Corpuscular Hemoglobin Concent 33 g/dL (31-37) Red Cell Distribution Width 16.2 % (11.5-14.5) Platelet Count 156 x10^3/uL (140-400) Neutrophils (%) (Auto) 89 % (31-73) Lymphocytes (%) (Auto) 6 % (24-48) Monocytes (%) (Auto) 5 % (0-9) Eosinophils (%) (Auto) 0 % (0-3) Basophils (%) (Auto) 0 % (0-3) Neutrophils # (Auto) 5.4 x10^3uL (1.8-7.7) Lymphocytes # (Auto) 0.4 x10^3/uL (1.0-4.8) Monocytes # (Auto) 0.3 x10^3/uL (0.0-1.1) Eosinophils # (Auto) 0.0 x10^3/uL (0.0-0.7) Basophils # (Auto) 0.0 x10^3/uL (0.0-0.2) Sodium Level 142 mmol/L (136-145) Potassium Level 3.7 mmol/L (3.5-5.1) Chloride Level 103 mmol/L (98-107) Carbon Dioxide Level 33 mmol/L (21-32) Anion Gap 6 (6-14) Blood Urea Nitrogen 16 mg/dL (8-26) Creatinine 0.7 mg/dL (0.7-1.3) Estimated GFR (Cockcroft-Gault) 140.2 BUN/Creatinine Ratio 23 (6-20) Glucose Level 198 mg/dL (70-99) Calcium Level 8.7 mg/dL (8.5-10.1) Total Bilirubin 0.3 mg/dL (0.2-1.0) Aspartate Amino Transf (AST/SGOT) 13 U/L (15-37) Alanine Aminotransferase (ALT/SGPT) 27 U/L (16-63) Alkaline Phosphatase 103 U/L (46-116) Total Protein 5.6 g/dL (6.4-8.2) Albumin 2.7 g/dL (3.4-5.0) Albumin/Globulin Ratio 0.9 (1.0-1.7) Test 05/30/18 07:29 Glucose (Fingerstick) 142 mg/dL (70-99) Laboratory Tests Test 05/29/18 11:16 05/29/18 17:10 05/29/18 20:29 05/30/18 05:30 Glucose (Fingerstick) 146 mg/dL (70-99) 309 mg/dL (70-99) 154 mg/dL (70-99) White Blood Count 6.1 x10^3/uL (4.0-11.0) Red Blood Count 3.35 x10^6/uL (4.30-5.70) Hemoglobin 10.2 g/dL (13.0-17.5) Hematocrit 31.0 % (39.0-53.0) Mean Corpuscular Volume 92 fL (79-100) Mean Corpuscular Hemoglobin 31 pg (25-35) Mean Corpuscular Hemoglobin Concent 33 g/dL (31-37) Red Cell Distribution Width 16.2 % (11.5-14.5) Platelet Count 156 x10^3/uL (140-400) Neutrophils (%) (Auto) 89 % (31-73) Lymphocytes (%) (Auto) 6 % (24-48) Monocytes (%) (Auto) 5 % (0-9) Eosinophils (%) (Auto) 0 % (0-3) Basophils (%) (Auto) 0 % (0-3) Neutrophils # (Auto) 5.4 x10^3uL (1.8-7.7) Lymphocytes # (Auto) 0.4 x10^3/uL (1.0-4.8) Monocytes # (Auto) 0.3 x10^3/uL (0.0-1.1) Eosinophils # (Auto) 0.0 x10^3/uL (0.0-0.7) Basophils # (Auto) 0.0 x10^3/uL (0.0-0.2) Sodium Level 142 mmol/L (136-145) Potassium Level 3.7 mmol/L (3.5-5.1) Chloride Level 103 mmol/L (98-107) Carbon Dioxide Level 33 mmol/L (21-32) Anion Gap 6 (6-14) Blood Urea Nitrogen 16 mg/dL (8-26) Creatinine 0.7 mg/dL (0.7-1.3) Estimated GFR (Cockcroft-Gault) 140.2 BUN/Creatinine Ratio 23 (6-20) Glucose Level 198 mg/dL (70-99) Calcium Level 8.7 mg/dL (8.5-10.1) Total Bilirubin 0.3 mg/dL (0.2-1.0) Aspartate Amino Transf (AST/SGOT) 13 U/L (15-37) Alanine Aminotransferase (ALT/SGPT) 27 U/L (16-63) Alkaline Phosphatase 103 U/L (46-116) Total Protein 5.6 g/dL (6.4-8.2) Albumin 2.7 g/dL (3.4-5.0) Albumin/Globulin Ratio 0.9 (1.0-1.7) Test 05/30/18 07:29 Glucose (Fingerstick) 142 mg/dL (70-99) Medications Active Scripts Medications Dose Route/Sig Max Daily Dose Days Date Category Prednisone 50 Mg Tablet 1 Tab PO DAILY 05/10/18 Rx Ventolin Hfa Inhaler (Albuterol Sulfate) 18 Gm Hfa.aer.ad 2 Puff INH Q4HRS 05/10/18 Rx Tramadol Hcl 50 Mg Tablet 50 Mg PO Q6HRS PRN 05/10/18 Rx Prednisone 20 Mg Tablet 1 Tab PO DAILY 05/05/18 Rx Tramadol Hcl 50 Mg Tablet 50-100 Mg PO PRN Q6HRS PRN 6 04/30/18 Rx Doxycycline Hyclate 100 Mg Capsule 1 Cap PO BID 04/17/18 Rx Medrol (Methylprednisolone) 4 Mg Tab.ds.pk 1 Pkg PO UD 04/17/18 Rx Mobic (Meloxicam) 7.5 Mg Tablet 1-2 Tab PO DAILY 5 04/17/18 Rx Cyclobenzaprine Hcl 5 Mg Tablet 5 Mg PO PRN TID PRN 04/08/18 Rx Prednisone 50 Mg Tablet 1 Tab PO DAILY 03/27/18 Rx Erythromycin (Erythromycin Base) 250 Mg Tablet 250 Mg PO DAILY 03/15/18 Reported Vitamin D3 (Cholecalciferol (Vitamin D3)) 5,000 Unit Tablet 5,000 Unit PO DAILY 03/15/18 Reported Reglan (Metoclopramide Hcl) 10 Mg Tablet 0.5 Tab PO QID 30 02/14/18 Rx Xanax (Alprazolam) 0.5 Mg Tablet 1 Tab PO BID 02/03/18 Rx Prednisone 20 Mg Tablet 40 Mg PO DAILY 01/31/18 Rx Potassium Chloride 20 Meq Tablet.er 20 Meq PO DAILY 01/13/18 Reported Protonix (Pantoprazole Sodium) 20 Mg Tablet.dr 1 Tab PO DAILY 11/18/17 Reported Flonase Allergy Relief (Fluticasone Propionate) 9.9 Ml [place].susp 2 Sprays NS DAILY 11/18/17 Reported Furosemide 20 Mg Tablet 1 Tab PO DAILY 09/10/17 Rx Atorvastatin Calcium 10 Mg Tablet 10 Mg PO HS 08/21/17 Reported Albuterol Sulfate Neb Soln (Albuterol Sulfate) 2.5 Mg/3 Ml Vial.neb 1 Vial NEB PRN Q4HRS 07/10/17 Rx Symbicort 160-4.5 Mcg Inhaler (Budesonide/Formoterol Fumarate) 10.2 Gm Hfa.aer.ad 2 Puff IH BID 09/21/15 Reported Spiriva (Tiotropium [place]) 18 Mcg Cap.w.dev 2 Inh IH DAILY 09/21/[address] CHEST IMPRESSION: 1. Severe emphysema with a prominent bullous component on the left. 2. Chronic pleural/parenchymal scarring. 3. New small spiculated opacity in the right lower lobe which may be inflammatory or neoplastic. CT follow-up is suggested. Impression . 1. [id number] respiratory failure secondary to acute bronchitis, acute exacerbation of chronic obstructive pulmonary disease, . 3. Acute bronchitis. 4. Acute exacerbation of chronic obstructive pulmonary disease. 5. History of congestive heart failure. NORMAL EF 6. Hypertension. 7. smoker 8. Abnormal ct chest in Feb with large left upper lobe bullae and interstitial infiltrates right lung. Respiratory bronchiolitis ILD related to tobacco vs inflammatory. repeat ct 05/30 with resolution of interstitial infiltrates, severe left lung bullae and new SPICULATED RIGHT LUNG NODULE 12 MM ( Inflammatory vs neoplastic) Plan . 1. Titrate FiO2 to keep oxygen saturation 92%. 2. Continue bronchodilator. 3. Continue prednisone with gradual taper 4. Encouraged pt to use home CPAP regularly/ BIPAP while in house qhs 5. Lovenox for DVT prophylaxis. 6. repeat chest in June, appointment given with DR COOK 7. Continue PO abx 8. smoking cessation counseling provided 9. Pt would benefit with evaluation for bullectomy / was supposed to go to [facility] but has not made it yet 10. Abx per ID NEEDS REH[facility] VIN MEAD MD May 30, 2018 11:16
--- NOTE | 2018-05-30 11:54 | PDOC ---
Infectious Disease Note Subjective: Subjective pt cont to have sob and cough no f/c/n/v/d ROS: ROS Negative except for above. Vital Signs: Vital Signs Vital Signs Date Time Temp Pulse Resp B/P (MAP) Pulse Ox O2 Delivery O2 Flow Rate FiO2 05/30/18 10:58 97.9 113 20 143/80 (101) 92 Room Air 97.9 05/30/18 10:00 2.0 Physical Exam: PHYSICAL EXAM GENERAL: The patient is slightly propped up in bed, alert, relaxed appearance. HEENT: Pupils equally round. Normal conjunctivae. Oral cavity: Pharynx pink and dry. NECK: Supple. LUNGS: dec bs at bases, no wheezing HEART: S1, S2. ABDOMEN: Obese, soft, nontender with bowel sounds present. EXTREMITIES: 2+ edema in lower extremities bilaterally. No cyanosis. SKIN: Warm and dry. NEUROLOGIC: Alert and responds appropriately. Medications: Inpatient Meds: Current Medications Medications (Trade) Dose Ordered Sig/Candy Start Time Stop Time Status Last Admin Dose Admin Acetaminophen (Tylenol) 650 mg PRN Q4HRS PRN 05/25/18 15:45 Al Hydroxide/Mg Hydroxide (Mylanta Plus Xs) 30 ml PRN DAILY PRN 05/25/18 15:45 Albuterol Sulfate (Ventolin Neb Soln) 2.5 mg Q4HRS 05/25/18 20:00 05/30/18 08:06 2.5 MG Albuterol/ Ipratropium (Duoneb) 3 ml 1X ONCE 05/25/18 13:30 05/25/18 13:31 DC 05/25/18 13:57 3 ML Alprazolam (Xanax) 0.5 mg BID 05/25/18 21:00 05/29/18 21:34 0.5 MG Amoxicillin/ Clavulanate Potassium (Augmentin 875/ 125mg) 1 tab BID 05/29/18 21:00 05/30/18 08:45 1 TAB Atorvastatin Calcium (Lipitor) 10 mg HS 05/25/18 21:00 05/29/18 21:33 10 MG Budesonide (Pulmicort) 0.5 mg RTBID 05/25/18 20:00 05/30/18 08:06 0.5 MG Ceftriaxone Sodium (Rocephin) 1 gm Q24H 05/26/18 13:00 4/17/19 16:06 DC 05/28/18 12:58 1 GM Clonidine HCl (Catapres) 0.1 mg PRN Q6HRS PRN 05/25/18 15:45 Cyclobenzaprine HCl (Flexeril) 5 mg PRN TID PRN 05/25/18 16:00 05/29/18 10:40 5 MG Dextrose (Dextrose 50%-Water Syringe) 12.5 gm PRN Q15MIN PRN 05/27/18 11:45 Docusate Sodium (Colace) 100 mg PRN BID PRN 05/25/18 15:45 Doxycycline Hyclate (Vibra-Tab) 100 mg BID 05/29/18 21:00 05/30/18 08:52 100 MG Doxycycline Hyclate 100 mg/ Dextrose 100 ml @ 50 mls/hr Q12HR 05/25/18 16:00 05/29/18 16:06 DC 05/29/18 08:29 50 MLS/HR Enoxaparin Sodium (Lovenox 40mg Syringe) 40 mg Q24H 05/26/18 08:30 UNV Erythromycin (E-Mycin) 250 mg DAILY 05/26/18 09:00 05/30/18 08:51 250 MG Fluticasone Propionate (Flonase) 2 spray DAILY 05/26/18 09:00 05/30/18 08:50 2 SPRAY Guaifenesin (Robitussin) 200 mg PRN Q4HRS PRN 05/25/18 15:45 Insulin Human Lispro (HumaLOG) 0-5 UNITS TIDWMEALS 05/27/18 12:00 05/29/18 17:37 5 UNITS Lactobacillus Rhamnosus (Culturelle) 1 cap BID 05/26/18 21:00 05/30/18 08:53 1 CAP Lorazepam (Ativan) 0.5 mg PRN Q4HRS PRN 05/25/18 15:45 Meloxicam (Mobic) 7.5 mg DAILY 05/26/18 09:00 05/30/18 08:50 7.5 MG Methylprednisolone Sodium Succinate (SOLU-Medrol 125MG VIAL) 125 mg 1X ONCE 05/25/18 13:30 05/25/18 13:31 DC 05/25/18 13:47 125 MG Metoclopramide HCl (Reglan) 5 mg QID 05/25/18 17:00 05/30/18 08:51 5 MG Non-Formulary Medication (Tizanidine Hcl ) 4 mg QID PRN 05/25/18 15:30 05/25/18 16:44 DC Ondansetron HCl (Zofran) 4 mg PRN Q4HRS PRN 05/25/18 15:45 Pantoprazole Sodium (Protonix) 40 mg DAILYAC 05/26/18 13:00 05/30/18 08:53 40 MG Piperacillin Sod/ Tazobactam Sod 3.375 gm/Sodium Chloride 50 ml @ 100 mls/hr 1X ONCE 05/25/18 14:15 05/25/18 14:44 DC 05/25/18 15:02 100 MLS/HR Potassium Chloride (Klor-Con) 20 meq DAILYWBKFT 05/26/18 08:00 05/30/18 08:47 20 MEQ Prednisone (Prednisone) 40 mg DAILY 05/26/18 09:00 05/30/18 08:47 40 MG Sodium Chloride (Normal Saline Flush 3ml) 3 ml QSHIFT PRN 05/25/18 15:45 Tramadol HCl (Ultram) 50 mg PRN Q6HRS PRN 05/25/18 15:30 05/30/18 08:49 50 MG Vancomycin HCl 250 ml @ 250 mls/hr 1X ONCE 05/25/18 14:15 05/25/18 15:14 DC Vitamin D (Vitamin D3) 5,000 unit DAILY 05/26/18 09:00 05/30/18 08:50 5,000 UNIT Zolpidem Tartrate (Ambien) 5 mg PRN QHS PRN 05/25/18 15:45 Labs: Lab Laboratory Tests Test 05/29/18 17:10 05/29/18 20:29 05/30/18 05:30 05/30/18 07:29 Glucose (Fingerstick) 309 mg/dL (70-99) 154 mg/dL (70-99) 142 mg/dL (70-99) White Blood Count 6.1 x10^3/uL (4.0-11.0) Red Blood Count 3.35 x10^6/uL (4.30-5.70) Hemoglobin 10.2 g/dL (13.0-17.5) Hematocrit 31.0 % (39.0-53.0) Mean Corpuscular Volume 92 fL (79-100) Mean Corpuscular Hemoglobin 31 pg (25-35) Mean Corpuscular Hemoglobin Concent 33 g/dL (31-37) Red Cell Distribution Width 16.2 % (11.5-14.5) Platelet Count 156 x10^3/uL (140-400) Neutrophils (%) (Auto) 89 % (31-73) Lymphocytes (%) (Auto) 6 % (24-48) Monocytes (%) (Auto) 5 % (0-9) Eosinophils (%) (Auto) 0 % (0-3) Basophils (%) (Auto) 0 % (0-3) Neutrophils # (Auto) 5.4 x10^3uL (1.8-7.7) Lymphocytes # (Auto) 0.4 x10^3/uL (1.0-4.8) Monocytes # (Auto) 0.3 x10^3/uL (0.0-1.1) Eosinophils # (Auto) 0.0 x10^3/uL (0.0-0.7) Basophils # (Auto) 0.0 x10^3/uL (0.0-0.2) Sodium Level 142 mmol/L (136-145) Potassium Level 3.7 mmol/L (3.5-5.1) Chloride Level 103 mmol/L (98-107) Carbon Dioxide Level 33 mmol/L (21-32) Anion Gap 6 (6-14) Blood Urea Nitrogen 16 mg/dL (8-26) Creatinine 0.7 mg/dL (0.7-1.3) Estimated GFR (Cockcroft-Gault) 140.2 BUN/Creatinine Ratio 23 (6-20) Glucose Level 198 mg/dL (70-99) Calcium Level 8.7 mg/dL (8.5-10.1) Total Bilirubin 0.3 mg/dL (0.2-1.0) Aspartate Amino Transf (AST/SGOT) 13 U/L (15-37) Alanine Aminotransferase (ALT/SGPT) 27 U/L (16-63) Alkaline Phosphatase 103 U/L (46-116) Total Protein 5.6 g/dL (6.4-8.2) Albumin 2.7 g/dL (3.4-5.0) Albumin/Globulin Ratio 0.9 (1.0-1.7) Objective: Assessment: Acute on chronic respiratory failure, O2 dependent 3L resolved Exacerbation COPD improving Bullous emphysema awaiting bullectomy per pulm Lactic acidosis HTN Plan: Plan of Care pt has been transitioned to po augmentin and doxycycline as no iv access per rn 05/29 monitor closely pulm following needs rehab Influenza screen Supportive care D/W WARNER CARVER MD May 30, 2018 11:53
[2018-05-30] MEDS: CYCLOBENZAPRINE 10 MG TABLET. PO PRN (12:59)
[2018-05-30 15:15] VITALS: BP 131/94
[2018-05-30] MEDS: ENOXAPARIN 40 MG/0.4 ML SYRINGE. SQ SCH (16:00)
--- NOTE | 2018-05-30 16:41 | PDOC3 ---
Discharge Summary Date of Admission: May 25, 2018 Date of Discharge: May 30, 2018 Follow-Up: 1-2 days, 3-5 days Admitting Diagnosis comment: DISCHARGE DX Assessment/Plan impression/ plan Acute on chronic respiratory failure - will give steroids, qid nebs Left ventricle systolic function is low normal. The Ejection Fraction is 50%. Transmitral Doppler flow pattern is Grade [id number] filling dynamics. The left atrium size is normal. COPD with exacerbation and acute bronchitis - iv doxycycline, consult pulm. Needs bullectomy consideration at [facility] as has previously been discussed Severe emphysema with large bulla at the left apex, recent ct Patchy ground-glass opacity throughout both lungs with some increasing reticulonodular opacity along the bronchovascular bundles of the lower lobes. Consider infectious or inflammatory processes or chronic aspiration. Dysphagia with prior history of Rosanne esophagitis - hypertension CHF chronic combined, EF 50% acute exacerbation, GERD - cont PPI1. reflux to the level of the upper-mid thoracic esophagus. Anemia - of chronic disease. Avoid nephrotoxic meds, IVF CHRONIC HYPERCAPNIC RESP FAILURE Lactic acidosis sec volume depletion Chronic sinusitis NORMOCYTIC ANEMIA 05/28 feeling better, but not back to baseline per patient 05/29, STATES HE HAD A BAD NIGHT NOT SLEEPNG WELL, WEAK plan blood cult pulm consult araceli qid o2 support PO doxycycline 100mg bid, AUGMENTIN 500MG PO BID X 7 DAYS, SEE PCP NEXT WEEK JUSTINO dvt prophylaxis HOB AT 30 DEGREES to avoid reflux FOLLOW LACTIC ACID TELE ECHO abg ID FOLLOWING D/W DR MEAD IN [place] TO D/C TODAY, HOME HEALTH TODAY 33 MIN PT EXAM, D/C PLANNING CHART REVIEW,> 50% OF time spent with exam, chart review, pt care coordination Vitals Vitals Vital Signs Date Time Temp Pulse Resp B/P (MAP) Pulse Ox O2 Delivery O2 Flow Rate FiO2 05/30/18 10:58 97.9 113 20 143/80 (101) 92 Room Air 97.9 05/30/18 10:00 2.0 Physical Exam Physical Exam GENERAL: The patient is slightly propped up in bed, alert, relaxed appearance. HEENT: Pupils equally round. Normal conjunctivae. Oral cavity: Pharynx pink and dry. NECK: Supple. LUNGS: dec bs at bases, no wheezing HEART: S1, S2. ABDOMEN: Obese, soft, nontender with bowel sounds present. EXTREMITIES: 2+ edema in lower extremities bilaterally. No cyanosis. SKIN: Warm and dry. NEUROLOGIC: Alert and responds appropriately. General: Alert, Oriented X3, Cooperative, mild distress, moderate distress Heart: Regular rate, Normal S1, No murmurs Lungs: Other Abdomen: Soft Extremities: No cyanosis Skin: No significant lesion CT of the chest without contrast, 05/30/2018: HISTORY: Interstitial lung disease, COPD Noncontrast scans were obtained and compared to a study from 03/15/2018. There are emphysematous changes in both lungs. These are most severe on the left with a large bulla in the left upper chest. There is mild associated [id number] shift of the mediastinum. Scattered linear opacities in both lungs are compatible with scars. Mild infiltrate present posteriorly in the right lung base on the previous study has largely cleared. There is a 12 mm spiculated part solid nodule in the posterolateral aspect of the right lower lobe as seen on image 34 of series #2 which was not evident on the previous study. The thoracic aorta is of normal caliber. Minimal coronary artery calcifications are noted. Several small mediastinal lymph nodes are identified without pathologic enlargement. There is no evidence of pleural fluid. IMPRESSION: 1. Severe emphysema with a prominent bullous component on the left. 2. Chronic pleural/parenchymal scarring. 3. New small spiculated opacity in the right lower lobe which may be inflammatory or neoplastic. CT follow-up is suggested. PQRS Compliance Statement: FINAL DIAGNOSIS Problems Medical Problems: (1) COPD exacerbation Status: Acute (2) Severe sepsis Status: Acute Brief Hospital Course Mr. Nash is a 57 old [sex] who presented with [ PNEUMONIA] CONDITION AT DISCHARGE: Improved Discharge Medications Current Medications Sodium Chloride 1,000 ml @ 1,000 mls/hr Q1H IV Last administered on 05/25/18at 13:48; Start 05/25/18 at 13:22; Stop 05/25/18 at 14:21; Status DC Albuterol/ Ipratropium (Duoneb) 3 ml 1X ONCE NEB Last administered on at 13:57; Start 05/25/18 at 13:30; Stop 05/25/18 at 13:31; Status DC Methylprednisolone Sodium Succinate (SOLU-Medrol 125MG VIAL) 125 mg 1X ONCE IV Last administered on 05/25/18at 13:47; Start 05/25/18 at 13:30; Stop 05/25/18 at 13:31; Status DC Ceftriaxone Sodium (Rocephin) 1 gm 1X ONCE IVP ; Start 05/25/18 at 14:15; Stop 05/25/18 at 14:15; Status DC Piperacillin Sod/ Tazobactam Sod 3.375 gm/Sodium Chloride 50 ml @ 100 mls/hr 1X ONCE IV Last administered on 05/25/18at 15:02; Start 05/25/18 at 14:15; Stop 05/25/18 at 14:44; Status DC Vancomycin HCl 250 ml @ 250 mls/hr 1X ONCE IV ; Start 05/25/18 at 14:15; Stop 05/25/18 at 15:14; Status DC Sodium Chloride 1,000 ml @ 1,000 mls/hr 1X ONCE IV ; Start 05/25/18 at 14:15; Stop 05/25/18 at 15:14; Status DC Sodium Chloride 1,000 ml @ 1,000 mls/hr 1X ONCE IV ; Start 05/25/18 at 14:15; Stop 05/25/18 at 15:14; Status DC Sodium Chloride 1,000 ml @ 150 mls/hr Q6H40M IV Last administered on at 17:58; Start 05/25/18 at 14:21; Stop 05/26/18 at 14:20; Status DC Albuterol Sulfate (Ventolin Neb Soln) 2.5 mg PRN Q4HRS PRN NEB SHORTNESS OF BREATH Last administered on 05/25/18at 16:16; Start 05/25/18 at 15:30 Alprazolam (Xanax) 0.5 mg BID PO Last administered on 05/29/18at 21:34; Start at 21:00 Atorvastatin Calcium (Lipitor) 10 mg HS PO Last administered on 05/29/18at 21:33 ; Start 05/25/18 at 21:00 Erythromycin (E-Mycin) 250 mg DAILY PO Last administered on 05/30/18at 08:51; Start 05/26/18 at 09:00 Metoclopramide HCl (Reglan) 5 mg QID PO Last administered on 05/30/18 13:01; Start 05/25/18 at 17:00 Prednisone (Prednisone) 40 mg DAILY PO Last administered on 05/30/18 08:47; Start 05/26/18 at 09:00 Tramadol HCl (Ultram) 50 mg PRN Q6HRS PRN PO PAIN MODERATE Last administered on 05/30/18 08:49; Start 05/25/18 at 15:30 Albuterol Sulfate (Ventolin Neb Soln) 2.5 mg Q4HRS NEB Last administered on 16:28; Start 05/25/18 at 20:00 Budesonide (Pulmicort) 0.5 mg RTBID NEB Last administered on 05/30/18 08:06; Start 05/25/18 at 20:00 Vitamin D (Vitamin D3) 5,000 unit DAILY PO Last administered on 05/30/18 08:50 ; Start 05/26/18 at 09:00 Cyclobenzaprine HCl (Flexeril) 5 mg PRN TID PRN PO MUSCLE SPASMS Last administered on 05/30/18 12:59; Start 05/25/18 at 16:00 Fluticasone Propionate (Flonase) 2 spray DAILY NS Last administered on 08:50; Start 05/26/18 at 09:00 Meloxicam (Mobic) 7.5 mg DAILY PO Last administered on 05/30/18 08:50; Start 05/26/18 at 09:00 Potassium Chloride (Klor-Con) 20 meq DAILYWBKFT PO Last administered on 08:47; Start 05/26/18 at 08:00 Non-Formulary Medication (Tizanidine Hcl ) 4 mg QID PRN PO MUSCLE SPASMS; Start 05/25/18 at 15:30; Stop 05/25/18 at 16:44; Status DC Doxycycline Hyclate 100 mg/ Dextrose 100 ml @ 50 mls/hr Q12HR IV Last administered on 05/29/18 08:29; Start 05/25/18 at 16:00; Stop 05/29/18 at 16:06 ; Status DC Sodium Chloride 1,000 ml @ 125 mls/hr 1X ONCE IV Last administered on 4/13/ 19at 18:20; Start 05/25/18 at 15:30; Stop 05/25/18 at 23:29; Status DC Enoxaparin Sodium (Lovenox 40mg Syringe) 40 mg Q24H SQ Last administered on at 18:21; Start 05/25/18 at 16:00 Sodium Chloride (Normal Saline Flush 3ml) 3 ml QSHIFT PRN IV AFTER MEDS AND BLOOD DRAWS; Start 05/25/18 at 15:45 Ondansetron HCl (Zofran) 4 mg PRN Q4HRS PRN IV NAUSEA/VOMITING; Start 05/25/18 at 15:45 Zolpidem Tartrate (Ambien) 5 mg PRN QHS PRN PO INSOMNIA; Start 05/25/18 at 15: 45 Acetaminophen (Tylenol) 650 mg PRN Q4HRS PRN PO TEMP OVER 100.4F OR MILD PAIN; Start 05/25/18 at 15:45 Al Hydroxide/Mg Hydroxide (Mylanta Plus Xs) 30 ml PRN DAILY PRN PO HEARTBURN / GAS; Start 05/25/18 at 15:45 Clonidine HCl (Catapres) 0.1 mg PRN Q6HRS PRN PO SBP>160 OR DBP>90; Start 05/25 at 15:45 Docusate Sodium (Colace) 100 mg PRN BID PRN PO CONSTIPATION; Start 05/25/18 at 15:45 Guaifenesin (Robitussin) 200 mg PRN Q4HRS PRN PO COUGH; Start 05/25/18 at 15:45 Lorazepam (Ativan) 0.5 mg PRN Q4HRS PRN PO ANXIETY / AGITATION; Start 05/25/18 at 15:45 Ceftriaxone Sodium (Rocephin) 1 gm Q24H IVP Last administered on 05/28/18at 12: 58; Start 05/26/18 at 13:00; Stop 05/29/18 at 16:06; Status DC Pantoprazole Sodium (Protonix) 40 mg DAILYAC PO Last administered on 05/30/18at 08:53; Start 05/26/18 at 13:00 Enoxaparin Sodium (Lovenox 40mg Syringe) 40 mg Q24H SQ ; Start 05/26/18 at 08:30 ; Status UNV Lactobacillus Rhamnosus (Culturelle) 1 cap BID PO Last administered on 08:53; Start 05/26/18 at 21:00 Insulin Human Lispro (HumaLOG) 0-5 UNITS TIDWMEALS SQ Last administered on 05/30at 13:08; Start 05/27/18 at 12:00 Dextrose (Dextrose 50%-Water Syringe) 12.5 gm PRN Q15MIN PRN IV SEE COMMENTS; Start 05/27/18 at 11:45 Doxycycline Hyclate (Vibra-Tab) 100 mg BID PO Last administered on 05/30/18at 08 :52; Start 05/29/18 at 21:00 Amoxicillin/ Clavulanate Potassium (Augmentin 875/ 125mg) 1 tab BID PO Last administered on 05/30/18 08:45; Start 05/29/18 at 21:00 Active Scripts Active Prednisone 50 Mg Tablet 1 Tab PO DAILY Ventolin Hfa Inhaler (Albuterol Sulfate) 18 Gm Hfa.aer.ad 2 Puff INH Q4HRS Tramadol Hcl 50 Mg Tablet 50 Mg PO Q6HRS PRN Prednisone 20 Mg Tablet 1 Tab PO DAILY Tramadol Hcl 50 Mg Tablet 50-100 Mg PO PRN Q6HRS PRN 6 Days Doxycycline Hyclate 100 Mg Capsule 1 Cap PO BID Medrol (Methylprednisolone) 4 Mg Tab.ds.pk 1 Pkg PO UD Mobic (Meloxicam) 7.5 Mg Tablet 1-2 Tab PO DAILY 5 Days Cyclobenzaprine Hcl 5 Mg Tablet 5 Mg PO PRN TID PRN Prednisone 50 Mg Tablet 1 Tab PO DAILY Reglan (Metoclopramide Hcl) 10 Mg Tablet 0.5 Tab PO QID 30 Days Xanax (Alprazolam) 0.5 Mg Tablet 1 Tab PO BID Prednisone 20 Mg Tablet 40 Mg PO DAILY Furosemide 20 Mg Tablet 1 Tab PO DAILY Albuterol Sulfate Neb Soln (Albuterol Sulfate) 2.5 Mg/3 Ml Vial.neb 1 Vial NEB PRN Q4HRS Reported Erythromycin (Erythromycin Base) 250 Mg Tablet 250 Mg PO DAILY Vitamin D3 (Cholecalciferol (Vitamin D3)) 5,000 Unit Tablet 5,000 Unit PO DAILY Potassium Chloride 20 Meq Tablet.er 20 Meq PO DAILY Protonix (Pantoprazole Sodium) 20 Mg Tablet.dr 1 Tab PO DAILY Flonase Allergy Relief (Fluticasone Propionate) 9.9 Ml Ovid.susp 2 Sprays NS DAILY Atorvastatin Calcium 10 Mg Tablet 10 Mg PO HS Symbicort 160-4.5 Mcg Inhaler (Budesonide/Formoterol Fumarate) 10.2 Gm Hfa.aer.ad 2 Puff IH BID Spiriva (Tiotropium [place]) 18 Mcg Cap.w.dev 2 Inh IH DAILY Vital Signs Vital Signs Date Time Temp Pulse Resp B/P (MAP) Pulse Ox O2 Delivery O2 Flow Rate FiO2 05/30/18 16:29 Nasal Cannula 2.0 05/30/18 15:15 98.8 101 18 131/94 (106) 97 98.8 Labs Laboratory Tests Test 05/28/18 16:49 05/28/18 20:37 05/29/18 07:11 05/29/18 11:16 Glucose (Fingerstick) 330 mg/dL (70-99) 193 mg/dL (70-99) 150 mg/dL (70-99) 146 mg/dL (70-99) Test 05/29/18 17:10 05/29/18 20:29 05/30/18 05:30 05/30/18 07:29 Glucose (Fingerstick) 309 mg/dL (70-99) 154 mg/dL (70-99) 142 mg/dL (70-99) White Blood Count 6.1 x10^3/uL (4.0-11.0) Red Blood Count 3.35 x10^6/uL (4.30-5.70) Hemoglobin 10.2 g/dL (13.0-17.5) Hematocrit 31.0 % (39.0-53.0) Mean Corpuscular Volume 92 fL (79-100) Mean Corpuscular Hemoglobin 31 pg (25-35) Mean Corpuscular Hemoglobin Concent 33 g/dL (31-37) Red Cell Distribution Width 16.2 % (11.5-14.5) Platelet Count 156 x10^3/uL (140-400) Neutrophils (%) (Auto) 89 % (31-73) Lymphocytes (%) (Auto) 6 % (24-48) Monocytes (%) (Auto) 5 % (0-9) Eosinophils (%) (Auto) 0 % (0-3) Basophils (%) (Auto) 0 % (0-3) Neutrophils # (Auto) 5.4 x10^3uL (1.8-7.7) Lymphocytes # (Auto) 0.4 x10^3/uL (1.0-4.8) Monocytes # (Auto) 0.3 x10^3/uL (0.0-1.1) Eosinophils # (Auto) 0.0 x10^3/uL (0.0-0.7) Basophils # (Auto) 0.0 x10^3/uL (0.0-0.2) Sodium Level 142 mmol/L (136-145) Potassium Level 3.7 mmol/L (3.5-5.1) Chloride Level 103 mmol/L (98-107) Carbon Dioxide Level 33 mmol/L (21-32) Anion Gap 6 (6-14) Blood Urea Nitrogen 16 mg/dL (8-26) Creatinine 0.7 mg/dL (0.7-1.3) Estimated GFR (Cockcroft-Gault) 140.2 BUN/Creatinine Ratio 23 (6-20) Glucose Level 198 mg/dL (70-99) Calcium Level 8.7 mg/dL (8.5-10.1) Total Bilirubin 0.3 mg/dL (0.2-1.0) Aspartate Amino Transf (AST/SGOT) 13 U/L (15-37) Alanine Aminotransferase (ALT/SGPT) 27 U/L (16-63) Alkaline Phosphatase 103 U/L (46-116) Total Protein 5.6 g/dL (6.4-8.2) Albumin 2.7 g/dL (3.4-5.0) Albumin/Globulin Ratio 0.9 (1.0-1.7) Test 05/30/18 11:45 Glucose (Fingerstick) 223 mg/dL (70-99) Laboratory Tests Test 05/29/18 17:10 05/29/18 20:29 05/30/18 05:30 05/30/18 07:29 Glucose (Fingerstick) 309 mg/dL (70-99) 154 mg/dL (70-99) 142 mg/dL (70-99) White Blood Count 6.1 x10^3/uL (4.0-11.0) Red Blood Count 3.35 x10^6/uL (4.30-5.70) Hemoglobin 10.2 g/dL (13.0-17.5) Hematocrit 31.0 % (39.0-53.0) Mean Corpuscular Volume 92 fL (79-100) Mean Corpuscular Hemoglobin 31 pg (25-35) Mean Corpuscular Hemoglobin Concent 33 g/dL (31-37) Red Cell Distribution Width 16.2 % (11.5-14.5) Platelet Count 156 x10^3/uL (140-400) Neutrophils (%) (Auto) 89 % (31-73) Lymphocytes (%) (Auto) 6 % (24-48) Monocytes (%) (Auto) 5 % (0-9) Eosinophils (%) (Auto) 0 % (0-3) Basophils (%) (Auto) 0 % (0-3) Neutrophils # (Auto) 5.4 x10^3uL (1.8-7.7) Lymphocytes # (Auto) 0.4 x10^3/uL (1.0-4.8) Monocytes # (Auto) 0.3 x10^3/uL (0.0-1.1) Eosinophils # (Auto) 0.0 x10^3/uL (0.0-0.7) Basophils # (Auto) 0.0 x10^3/uL (0.0-0.2) Sodium Level 142 mmol/L (136-145) Potassium Level 3.7 mmol/L (3.5-5.1) Chloride Level 103 mmol/L (98-107) Carbon Dioxide Level 33 mmol/L (21-32) Anion Gap 6 (6-14) Blood Urea Nitrogen 16 mg/dL (8-26) Creatinine 0.7 mg/dL (0.7-1.3) Estimated GFR (Cockcroft-Gault) 140.2 BUN/Creatinine Ratio 23 (6-20) Glucose Level 198 mg/dL (70-99) Calcium Level 8.7 mg/dL (8.5-10.1) Total Bilirubin 0.3 mg/dL (0.2-1.0) Aspartate Amino Transf (AST/SGOT) 13 U/L (15-37) Alanine Aminotransferase (ALT/SGPT) 27 U/L (16-63) Alkaline Phosphatase 103 U/L (46-116) Total Protein 5.6 g/dL (6.4-8.2) Albumin 2.7 g/dL (3.4-5.0) Albumin/Globulin Ratio 0.9 (1.0-1.7) Test 05/30/18 11:45 Glucose (Fingerstick) 223 mg/dL (70-99) Allergies Allergies Coded Allergies Type Severity Reaction Last Updated Verified acetaminophen Allergy Intermediate TAKES [facility]CO AT HOME 01/29/18 Yes Disposition/Orders: D/C to Home w/ HH Patient Instructions D/C PLANNING 32 MIN TOMAS BAIG MD May 30, 2018 16:41
[2018-05-30] MEDS ORDERED: MAG30ORA2 PO (16:45)
[2018-05-30] MEDS ORDERED: GUAI100L12 PO (16:45)
[2018-05-30] MEDS ORDERED: ACET325T9 PO (16:45)
[2018-05-30] MEDS ORDERED: AMOX1TAB11 PO (16:45)
[2018-05-30] MEDS ORDERED: DOCU-109 PO (16:45)
--- NOTE | 2018-05-30 16:47 | SNU/HH DC ---
DISCHARGE WITH HOME HEALTH DISCHARGE INFORMATION: Final Diagnosis: Problems Medical Problems: (1) COPD exacerbation Status: Acute (2) Severe sepsis Status: Acute Condition on Discharge: Guarded CODE STATUS: Code Status: Full HOME HEALTH: Face to Face: I certify this patient is under my care and that I, or a nurse practitioner or physician's respiratory therapist assistant working with me, had a face to face encounter that meets the physician face to face encounter requirements with this patient on []. Medical Complications: COPD, Pneumonia RN For Eval/Treatment: Yes Physical Therapy For: Evalulation/Treatment Occupational Therapy For: Evaluation/Treatment Speech Language Pathology For: Evaluation/Treatment Home Health Aide For: Self-care TUBE COVERER For: Community Resources Pt Meets Homebound Status: Poor coordination w/ amb. POST DISCHARGE ORDERS: Activity Instructions for Disc: Activity as tolerated Weight Bearing Status after Di: As tolerated DIET AFTER DISCHARGE: Cardiac CHECKS AFTER DISCHARGE: Checks after discharge: Check blood press - daily, Check blood sugar, ac/hs, Check your Temp as needed, Weigh Yourself Daily FOLLOW-UP: PCP to follow Home Health: NOW Follow up with: DR MEAD NEXT WEEK Follow Up With: PCP ONE WEEK TREATMENT/EQUIPMENT ORDERS: Adaptive Equipment Issued: None Discharge Respiratory Equipmen: Oxygen CERTIFICATION STATEMENT: Certification Statement: Certification Statement: Based on the above finding, I certify that this patient is confined to the home and needs intermittent retirement care, physical therapy and/or speech therapy, or continues to need occupational therapy.~ This patient is under my care, and I have initiated the establishment of the plan of care.~ This patient will be followed by myself or a community physician who will periodically review the plan of care. Home Meds Active Scripts Docusate Sodium (COLACE) 100 Mg Capsule, 100 MG PO PRN BID PRN for CONSTIPATION for 30 Days, #60 CAP Prov:TOMAS BAIG MD 05/30/18 Mag Hydrox/Al Hydrox/Simeth (MAG-AL PLUS XS SUSPENSION) 30 Ml Oral.susp, 30 ML PO PRN DAILY PRN for HEARTBURN / GAS for 10 Days, #120 MISC Prov:TOMAS BAIG MD 05/30/18 Guaifenesin (GUAIFENESIN) 100 Mg/5 Ml Liquid, 200 MG PO PRN Q4HRS PRN for COUGH for 30 Days, #120 LIQUID Prov:TOMAS BAIG MD 05/30/18 Acetaminophen (TYLENOL) 325 Mg Tablet, 650 MG PO PRN Q4HRS PRN for TEMP OVER 100.4F OR MILD PAIN for 10 Days, #30 TAB Prov:TOMAS BAIG MD 05/30/18 Amoxicillin/Potassium Clav (AMOX TR-K CLV 875-125 MG TAB) 1 Each Tablet, 1 TAB PO BID for PNEUMONIA for 10 Days, #20 TAB Prov:TOMAS BAIG MD 05/30/18 Albuterol Sulfate (VENTOLIN HFA INHALER) 18 Gm Hfa.aer.ad, 2 PUFF INH Q4HRS for FOR ASTHMA, #1 INHALER 0 Refills Prov:SD JON APRN 05/10/18 Doxycycline Hyclate (DOXYCYCLINE HYCLATE) 100 Mg Capsule, 1 CAP PO BID for COPD , #10 CAP Prov:ALIZA OLIVA MD 04/17/18 Meloxicam (MOBIC) 7.5 Mg Tablet, 1-2 TAB PO DAILY for pain for 5 Days, TAB 1 Refill Prov:ALIZA OLIVA MD 04/17/18 Metoclopramide Hcl (REGLAN) 10 Mg Tablet, 0.5 TAB PO QID for gerd for 30 Days, # 60 TAB Prov:TOMAS BAIG MD 02/14/18 Prednisone (PREDNISONE) 20 Mg Tablet, 40 MG PO DAILY for copd, #20 TAB Prov:HERMELINDO RICHARDSON MD 01/31/18 Furosemide (FUROSEMIDE) 20 Mg Tablet, 1 TAB PO DAILY, #90 TAB 1 Refill Prov:ACE BARRY DO 09/10/17 Albuterol Sulfate (ALBUTEROL SULFATE NEB SOLN) 2.5 Mg/3 Ml Vial.neb, 1 VIAL NEB PRN Q4HRS, #50 VIAL Prov:TEVIN GOODWIN MD 07/10/17 Reported Medications Cholecalciferol (Vitamin D3) (VITAMIN D3) 5,000 Unit Tablet, 5000 UNIT PO DAILY for supplement, TAB 03/15/18 Potassium Chloride (POTASSIUM CHLORIDE) 20 Meq Tablet.er, 20 MEQ PO DAILY for supplement, TAB.SR 01/13/18 Pantoprazole Sodium (PROTONIX) 20 Mg Tablet.dr, 1 TAB PO DAILY, #30 TAB 11/18/17 Fluticasone Propionate (Flonase Allergy Relief) 9.9 Ml [place].susp, 2 SPRAYS NS DAILY, BOTTLE 11/18/17 Atorvastatin Calcium (ATORVASTATIN CALCIUM) 10 Mg Tablet, 10 MG PO HS for FOR CHOLESTEROL, #30 TAB 0 Refills 08/21/17 Budesonide/Formoterol Fumarate (SYMBICORT 160-4.5 MCG INHALER) 10.2 Gm Hfa.aer.ad, 2 PUFF IH BID, #10.6 GM 3 Refills 09/21/15 Tiotropium [place] (SPIRIVA) 18 Mcg Cap.w.dev, 2 INH IH DAILY, #1 INH 0 Refills 09/21/15 Discontinued Reported Medications Erythromycin Base (ERYTHROMYCIN) 250 Mg Tablet, 250 MG PO DAILY for keep pneumonia down, TAB 03/15/18 Discontinued Scripts Prednisone (PREDNISONE) 50 Mg Tablet, 1 TAB PO DAILY, #5 TAB Prov:SD JON APRN 05/10/18 Tramadol Hcl (TRAMADOL HCL) 50 Mg Tablet, 50 MG PO Q6HRS PRN for PAIN, #30 TAB Prov:SD JON APRN 05/10/18 Prednisone (PREDNISONE) 20 Mg Tablet, 1 TAB PO DAILY, #5 TAB Prov:TEVIN GOODWIN MD 05/05/18 Tramadol Hcl (TRAMADOL HCL) 50 Mg Tablet, 50-100 MG PO PRN Q6HRS PRN for PAIN for 6 Days, #32 TAB Prov:KIRSTIE TREVINO MD 04/30/18 Methylprednisolone (MEDROL) 4 Mg Tab.ds.pk, 1 PKG PO UD for COPD, #1 PKG Prov:ALIZA OLIVA MD 04/17/18 Cyclobenzaprine Hcl (CYCLOBENZAPRINE HCL) 5 Mg Tablet, 5 MG PO PRN TID PRN for PAIN, #15 TAB Prov:TEVIN GOODWIN MD 04/08/18 Prednisone (PREDNISONE) 50 Mg Tablet, 1 TAB PO DAILY, #5 TAB Prov:ELLI TOMPKINS DO 03/27/18 Alprazolam (XANAX) 0.5 Mg Tablet, 1 TAB PO BID, #28 TAB Prov:SHAYY GRIFFITH MD 02/03/18 Tizanidine Hcl (TIZANIDINE HCL) 4 Mg Capsule, 4 MG PO QID PRN for MUSCLE SPASMS for 10 Days, #40 CAP Prov:ALIZA OLIVA MD 04/17/18 TOMAS BAIG MD May 30, 2018 16:47
--- NOTE | 2018-05-30 20:00 | NUR ---
Pt ready to discharge to home with HH after reviewing all pertinent information including education, medications, follow up and at home care. All paperwork signed, personal belongings in [facility] provided bags, IV removed without any complications, pt awaiting family member to come pick him up and drive him home, pt has been notified that HH will call him in the AM. Night nurse will continue to monitor pt until he leaves.
== END 2018-05-30 21:30 | disposition home health service (06) | DRG 871 ==
LOC: ER 13:03 → 6 SOUTH 14:07
PROVIDERS: ADMIT Family Medicine; ATTEND Family Medicine
PROC: 5A09357 Assistance with Respiratory Ventilation, Less than 24 Consecutive Hours, Continuous Positive Airway Pressure (ICD-10-PCS; principal; 2018-05-29)
DX: A41.9 Sepsis, unspecified organism (principal); J96.20 Acute and chronic respiratory failure, unspecified whether with hypoxia or hypercapnia; I13.0 Hypertensive heart and chronic kidney disease with heart failure and stage 1 through stage 4 chronic kidney disease, or unspecified chronic kidney disease; I50.42 Chronic combined systolic (congestive) and diastolic (congestive) heart failure; J44.0 Chronic obstructive pulmonary disease with (acute) lower respiratory infection; J44.1 Chronic obstructive pulmonary disease with (acute) exacerbation; E87.2 Acidosis; N18.9 Chronic kidney disease, unspecified; R65.20 Severe sepsis without septic shock; F41.9 Anxiety disorder, unspecified; D63.8 Anemia in other chronic diseases classified elsewhere; E11.22 Type 2 diabetes mellitus with diabetic chronic kidney disease; E78.5 Hyperlipidemia, unspecified; E86.9 Volume depletion, unspecified; F17.200 Nicotine dependence, unspecified, uncomplicated; G47.30 Sleep apnea, unspecified; I25.10 Atherosclerotic heart disease of native coronary artery without angina pectoris; J20.9 Acute bronchitis, unspecified; K21.9 Gastro-esophageal reflux disease without esophagitis; R13.10 Dysphagia, unspecified; Z82.49 Family history of ischemic heart disease and other diseases of the circulatory system; Z87.01 Personal history of pneumonia (recurrent); I25.2 Old myocardial infarction; Z99.81 Dependence on supplemental oxygen; Z88.8 Allergy status to other drugs, medicaments and biological substances; Z71.6 Tobacco abuse counseling
CPT/HCPCS: 36415; 71045; 71250; 80048; 80053; 80307; 81001; 82550; 82962; 83605; 83735; 83880; 84484; 85007; 85025; 85379; 87040; 87804; 93005; 93306; 94640; 94660; 94760; 96361; 96374; J0696; J1650; J1815; J2543; J2930; J3490; J7030; J7512; J7613; J7620; J7626; J8597; 97110; 97116; 97530; 97535; 99285-25

== ENCOUNTER 2018-06-11 19:34 | Emergency (ER) | payer MEDICARE, MEDICAID ==
[~2018-06-11] VITALS: Ht 180.3 cm; Wt 84.8 kg
[~2018-06-11 19:34] MED LIST changes: +ACET325T9 PO; +DOCU-109 PO; +GUAI100L12 PO; +MAG30ORA2 PO
[2018-06-11 19:35] VITALS: BP 129/82
[2018-06-11] MEDS ORDERED: IPRATRPIUM/ALBUTEROL 0.5/2.5MG 3 ML NEBU. NEB ONE (19:45)
[2018-06-11] MEDS ORDERED: predniSONE 10 MG TABLET PO ONE (20:45)
--- NOTE | 2018-06-11 22:34 | PHYS DOC ---
Past Medical History Past Medical History: Bronchitis, CHF, COPD, Heart Disease, Hypertension Additional Past Medical Histor: EMPHYSEMA-on 3 L NC, "prediabetes" Past Surgical History: Other Additional Past Surgical Histo: HERNIA REPAIR Alcohol Use: None Drug Use: None Adult General Chief Complaint Chief Complaint: MEDICATION REFILL HPI HPI Patient is a 57 year old female presenting with chief complaint of systems medication refill. Apparently he has MEDICATIONS at the pharmacy ready to be refilled BUT he doesn't get his money until june 12. he is short of breath, a little bit worse than normal but he is pretty much like this most of the time he is coughing no fever. He said he really just needs a breathing treatment to get him through until midnight when he can go get his medications refilled he also asked for a dose of prednisone as well. No fever symptoms are moderate they're slightly worse than baseline but not that far off he tells me Review of Systems Review of Systems Constitutional: Denies fever or chills [] Eyes: Denies change in visual acuity, redness, or eye pain [] Respiratory: GI: Musculoskeletal: Denies back pain or joint pain [] Integument: Denies rash or skin lesions [] Neurologic: Denies headache, focal weakness or sensory changes [] All other systems were reviewed and found to be within normal limits, except as documented in this note. Current Medications Current Medications Current Medications Medications (Trade) Dose Ordered Sig/Candy Start Time Stop Time Status Last Admin Dose Admin Albuterol/ Ipratropium (Duoneb) 3 ml 1X ONCE 06/11/18 19:45 06/11/18 19:48 DC 06/11/18 19:51 3 ML Prednisone (Prednisone) 50 mg 1X ONCE 06/11/18 20:45 06/11/18 20:46 DC 06/11/18 20:40 50 MG Allergies Allergies Allergies Coded Allergies Type Severity Reaction Last Updated Verified acetaminophen Allergy Intermediate TAKES NORCO AT HOME 01/29/18 Yes Physical Exam Physical Exam Constitutional: Well developed, well nourished, no acute distress, non-toxic appearance. [] HENT: Normocephalic, atraumatic, bilateral external ears normal, oropharynx moist, no oral exudates, nose normal. [] Eyes: PERRLA, EOMI, conjunctiva normal, no discharge. [] Neck: Normal range of motion, no tenderness, supple, no stridor. [] Cardiovascular mild tachycardia no murmurs. On repeat evaluation mildly evaluation of his radial posterior heart rate approximately 100 Lungs & Thorax faint distant breath sounds bilaterally this is similar to my multiple prior exams on previous visits. He seems to be at his baseline to me speaking full sentences with mild dyspnea: Back: No tenderness, no CVA tenderness. [] Extremities: No tenderness, no cyanosis, no clubbing, ROM intact, no edema. [] Neurologic: Alert and oriented X 3, normal motor function, normal sensory function, no focal deficits noted. [] Psychologic: Affect normal, judgement normal, mood normal. [] Current Patient Data Vital Signs Vital Signs Date Time Temp Pulse Resp B/P (MAP) Pulse Ox O2 Delivery O2 Flow Rate FiO2 06/11/18 19:52 96 Nasal Cannula 4.0 06/11/18 19:35 98.5 126 24 129/82 (98) 98.5 EKG EKG [] Radiology/Procedures Radiology/Procedures [] Course & Med Decision Making Course & Med Decision Making Pertinent Labs and Imaging studies reviewed. (See chart for details) []Patient felt better after breathing treatment he was discharged in stable condition he does have end-stage COPD but this is how he normally presents to the emergency room I don't think that he is having a significant change from his usual baseline Dragon Disclaimer Dragon Disclaimer This electronic medical record was generated, in whole or in part, using a voice recognition dictation system. Departure Departure Impression: Primary Impression: Emphysema of lung Disposition: 01 HOME, SELF-CARE Condition: STABLE Referrals: UNKNOWN PCP NAME (PCP) Patient Instructions: Chronic Obstructive Pulmonary Disease TEVIN GOODWIN MD Jun 11, 2018 22:34
== END 2018-06-11 20:49 | disposition home or self-care (01) ==
LOC: ER 19:34
DX: J43.9 Emphysema, unspecified (principal); R00.0 Tachycardia, unspecified; I11.0 Hypertensive heart disease with heart failure; I50.9 Heart failure, unspecified; Z88.6 Allergy status to analgesic agent
CPT/HCPCS: 94640; 99283; J7512; J7620

== ENCOUNTER 2018-06-15 16:55 | Emergency (ER) | payer MEDICARE, MEDICAID ==
[~2018-06-15] VITALS: Ht 180.3 cm; Wt 79.4 kg
[2018-06-15] MEDS ORDERED: methylPREDNISolone SOD SUCC PF 125 MG/2 ML VIAL. IV ONE (17:15)
[2018-06-15] MEDS ORDERED: IPRATRPIUM/ALBUTEROL 0.5/2.5MG 3 ML NEBU. NEB ONE (17:15)
[2018-06-15 17:21] LABS: BASO % 1 % (0-3); EOS % 0 % (0-3); HEMATOCRIT 34.1 % (39.0-53.0); HEMOGLOBIN 11.4 g/dL (13.0-17.5); LYMPH # 0.2 x10^3/uL (1.0-4.8); LYMPH % 3 % (24-48); MEAN CORPUSCULAR HEMOGLOBIN 30 pg (25-35); MEAN CORPUSCULAR HGB CONC 34 g/dL (31-37); MEAN CORPUSCULAR VOLUME 89 fL (79-100); MONO # 0.5 x10^3/uL (0.0-1.1); MONO % 6 % (0-9); NEUT # 6.7 x10^3uL (1.8-7.7); NEUT % 91 % (31-73); PLATELET COUNT 206 x10^3/uL (140-400); RED BLOOD COUNT 3.84 x10^6/uL (4.30-5.70); RED CELL DISTRIBUTION WIDTH 15.5 % (11.5-14.5); WHITE BLOOD COUNT 7.4 x10^3/uL (4.0-11.0)
[2018-06-15 17:30] LABS: CALCIUM 9.6 mg/dL (8.5-10.1); CREATININE 1.3 mg/dL (0.7-1.3); GFR 68.4; POTASSIUM 3.8 mmol/L (3.5-5.1)
[2018-06-15 17:36] LABS: ALBUMIN 3.6 g/dL (3.4-5.0); ALBUMIN/GLOBULIN RATIO 1.2 (1.0-1.7); TOTAL BILIRUBIN 0.7 mg/dL (0.2-1.0); TOTAL PROTEIN 6.7 g/dL (6.4-8.2)
[2018-06-15 17:42] LABS: BASE EXCESS ABG 7 mmol/L (-3-3); HCO3 ABG 32 mmol/L (21-28); PCO2 ABG 50 mmHg (35-46); PO2 ABG 89 mmHg (65-108); SAT O2 ABG 96 % (92-99)
[2018-06-15 17:52] LABS: % BANDS 1 % (0-9); % LYMPHS 2 % (24-48); % MONOS 4 % (0-10); % SEGS 93 % (35-66); PLT ESTIMATE ADEQUATE (ADEQUATE)
[2018-06-15 17:53] LABS: TOXIC VACUOLATION SLIGHT
--- NOTE | 2018-06-15 18:04 | PHYS DOC ---
Past Medical History Past Medical History: Bronchitis, CHF, COPD, Heart Disease, Hypertension, Other Additional Past Medical Histor: EMPHYSEMA-on 3 L NC, "prediabetes" (ZOIE CHARLES MD) Past Surgical History: Other Additional Past Surgical Histo: HERNIA REPAIR (ZOIE CHARLES MD) Alcohol Use: None Drug Use: None (ZOIE CHARLES MD) Adult General Chief Complaint Chief Complaint: SHORTNESS OF BREATH HPI HPI Patient is a 58 year old with history of COPD on home oxygen and frequent emergency room visits with shortness of breath brought in by a friend because of shortness of breath. Patient complaining of sudden onset of shortness of breath while he was at home an hour ago and increased his home oxygen from 3 L to 5 L with partial improvement of his shortness of breath. Patient denies chest pain and cough, fever and chills, nausea and vomiting, sick contact. (ZOIE CHARLES MD) Review of Systems Review of Systems Constitutional: Denies fever or chills [] Eyes: Denies change in visual acuity, redness, or eye pain [] HENT: Denies nasal congestion or sore throat [] Respiratory: Denies cough, reports shortness of breath [] Cardiovascular: No additional information not addressed in HPI [] GI: Denies abdominal pain, nausea, vomiting, bloody stools or diarrhea [] : Denies dysuria or hematuria [] Musculoskeletal: Denies back pain or joint pain [] Integument: Denies rash or skin lesions [] Neurologic: Denies headache, focal weakness or sensory changes [] Endocrine: Denies polyuria or polydipsia [] All other systems were reviewed and found to be within normal limits, except as documented in this note. (ZOIE CHARLES MD) Current Medications Current Medications Current Medications Medications (Trade) Dose Ordered Sig/Candy Start Time Stop Time Status Last Admin Dose Admin Albuterol/ Ipratropium (Duoneb) 3 ml 1X ONCE 06/15/18 17:15 06/15/18 17:16 DC 06/15/18 17:37 3 ML Methylprednisolone Sodium Succinate (SOLU-Medrol 125MG VIAL) 125 mg 1X ONCE 06/15/18 17:15 06/15/18 17:16 DC 06/15/18 17:22 125 MG Sodium Chloride 1,000 ml @ 1,000 mls/hr 1X ONCE 06/15/18 18:45 06/15/18 19:44 DC 06/15/18 18:50 1,000 MLS/HR (TEVIN GOODWIN MD) Allergies Allergies Allergies Coded Allergies Type Severity Reaction Last Updated Verified acetaminophen Allergy Intermediate TAKES NORCO AT HOME 01/29/18 Yes (TEVIN GOODWIN MD) Physical Exam Physical Exam Constitutional: Well nourished, mild distress, non-toxic appearance. [] HENT: Normocephalic, atraumatic, oropharynx moist. Eyes: PERRLA, EOMI, conjunctiva normal, no discharge. [] Neck: Normal range of motion, no tenderness, supple, no stridor. [] Cardiovascular: Tachycardia, no murmur [] Lungs & Thorax: Decrease of air movement bilaterally with mild respiratory distress. Abdomen: Bowel sounds normal, soft, no tenderness, no masses, no pulsatile masses. [] Skin: Warm, dry, no erythema, no rash. [] Back: No tenderness, no CVA tenderness. [] Extremities: No tenderness, no cyanosis, no clubbing, ROM intact, no edema. [] Neurologic: Alert and oriented X 3, normal motor function, normal sensory function, no focal deficits noted. [] Psychologic: Affect normal, judgement normal, mood normal. [] (ZOIE CHARLES MD) Current Patient Data Vital Signs Vital Signs Date Time Temp Pulse Resp B/P (MAP) Pulse Ox O2 Delivery O2 Flow Rate FiO2 06/15/18 21:12 76 20 155/96 (115) 97 Nasal Cannula 3.0 06/15/18 17:00 98.2 98.2 (TEVIN GOODWIN MD) Lab Values Laboratory Tests Test 06/15/18 17:10 06/15/18 17:30 06/15/18 18:00 06/15/18 20:01 White Blood Count 7.4 x10^3/uL (4.0-11.0) Red Blood Count 3.84 x10^6/uL (4.30-5.70) L Hemoglobin 11.4 g/dL (13.0-17.5) L Hematocrit 34.1 % (39.0-53.0) L Mean Corpuscular Volume 89 fL (79-100) Mean Corpuscular Hemoglobin 30 pg (25-35) Mean Corpuscular Hemoglobin Concent 34 g/dL (31-37) Red Cell Distribution Width 15.5 % (11.5-14.5) H Platelet Count 206 x10^3/uL (140-400) Neutrophils (%) (Auto) 91 % (31-73) H Lymphocytes (%) (Auto) 3 % (24-48) L Monocytes (%) (Auto) 6 % (0-9) Eosinophils (%) (Auto) 0 % (0-3) Basophils (%) (Auto) 1 % (0-3) Neutrophils # (Auto) 6.7 x10^3uL (1.8-7.7) Lymphocytes # (Auto) 0.2 x10^3/uL (1.0-4.8) L Monocytes # (Auto) 0.5 x10^3/uL (0.0-1.1) Eosinophils # (Auto) 0.0 x10^3/uL (0.0-0.7) Basophils # (Auto) 0.0 x10^3/uL (0.0-0.2) Segmented Neutrophils % 93 % (35-66) H Band Neutrophils % 1 % (0-9) Lymphocytes % 2 % (24-48) L Monocytes % 4 % (0-10) Myelocytes % % (0-0) Toxic Vacuolation Slight Platelet Estimate Adequate (ADEQUATE) Large Platelets Occ Sodium Level 139 mmol/L (136-145) Potassium Level 3.8 mmol/L (3.5-5.1) Chloride Level 99 mmol/L (98-107) Carbon Dioxide Level 31 mmol/L (21-32) Anion Gap 9 (6-14) Blood Urea Nitrogen 20 mg/dL (8-26) Creatinine 1.3 mg/dL (0.7-1.3) Estimated GFR (Cockcroft-Gault) 68.4 BUN/Creatinine Ratio 15 (6-20) Glucose Level 187 mg/dL (70-99) H Calcium Level 9.6 mg/dL (8.5-10.1) Total Bilirubin 0.7 mg/dL (0.2-1.0) Aspartate Amino Transferase (AST) 26 U/L (15-37) Alanine Aminotransferase (ALT) 32 U/L (16-63) Alkaline Phosphatase 116 U/L (46-116) Creatine Kinase 301 U/L (39-308) Troponin I Quantitative 0.036 ng/mL (0.000-0.055) UI-Ojp-V-Type Natriuretic Peptide 52 pg/mL (0-124) Total Protein 6.7 g/dL (6.4-8.2) Albumin 3.6 g/dL (3.4-5.0) Albumin/Globulin Ratio 1.2 (1.0-1.7) O2 Saturation 96 % (92-99) Arterial Blood pH 7.43 (7.35-7.45) Arterial Blood pCO2 at Patient Temp 50 mmHg (35-46) H Arterial Blood pO2 at Patient Temp 89 mmHg (65-108) Arterial Blood HCO3 32 mmol/L (21-28) H Arterial Blood Base Excess 7 mmol/L (-3-3) H FiO2 3 lpm nc Lactic Acid Level 3.2 mmol/L (0.4-2.0) H 1.5 mmol/L (0.4-2.0) Laboratory Tests 06/15/18 17:10 Laboratory Tests 06/15/18 17:10 (TEVIN GOODWIN MD) EKG EKG EKG interpreted by me. EKG at 1708 showed sinus tachycardia at rate of 110, PVCs, normal IA and QT intervals, poor R-wave progress in anteroseptal leads, no acute ST and T-wave abnormalities. (ZOIE CHARLES MD) Radiology/Procedures Radiology/Procedures [] (ZOIE CHARLES MD) Course & Med Decision Making Course & Med Decision Making Pertinent Labs and Imaging studies reviewed. (See chart for details) Sign out given to at 1800 for further evaluation and final disposition. Discussed current findings and plan with patient and family, who acknowledge understanding and agreement. (ZOIE CHARLES MD) Course & Med Decision Making I RE-EVAL HE FEELS BETTER, HE IS WATCHING TV, APPEARS AT HIS BASELINE. LACTI C WAS ELEV, ORDERED PRIOR TO MY EVALUATION. LIKELY FROM BETA AGONIST, HYDRATED AND REPEATED IT WENT DOWN, NO PNA ON CXR. PT GIVEN PREDNISONE AND ATIVAN RX FOR IMPROVEMENT. (TEVIN GOODWIN MD) Dragon Disclaimer Dragon Disclaimer This electronic medical record was generated, in whole or in part, using a voice recognition dictation system. (ZOIE CHARLES MD) Departure Departure Impression: Primary Impression: Shortness of breath Disposition: 01 HOME, SELF-CARE Condition: STABLE Referrals: UNKNOWN PCP NAME (PCP) Scripts Lorazepam (ATIVAN) 1 Mg Tablet 1 MG PO BID, #20 TAB Prov: TEVIN GOODWIN MD 06/15/18 Prednisone (PREDNISONE ) 10 Mg Tablet 10 MG PO UD for PREDNISONE TAPER, #39 TAB 0 Refills Take 3 tablets by mouth twice a day for 3 days, then take 2 tablets by mouth twice a day for 3 days, then take 1 tablet by mouth twice a day for 3 days, then take 1 tablet by mouth daily x 3 days, then stop. Prov: TEVIN GOODWIN MD 06/15/18 ZOIE CHARLES MD June 15, 2018 18:04 TEVIN GOODWIN MD June 16, 2018 04:24
--- NOTE | 2018-06-15 18:38 | RAD ---
PORTABLE CHEST 1V Clinical History: Technique: AP view of the chest was obtained at 06/15/2018 5:18 PM. Comparison: None. Findings: The cardiomediastinal silhouette is normal. The pulmonary vasculature is normal. There is emphysematous changes in the upper left lung. Linear opacities lung bases are likely discoid atelectasis. Impression: Emphysematous changes in the upper left lung. No acute findings. Electronically signed by: Luigi Herrera III, MD (06/15/2018 6:36 PM) [facility]
[2018-06-15] MEDS ORDERED: IV NORMAL SALINE 1000ML BAG 1,000 ML IV ONE (18:45)
[2018-06-15] MEDS ORDERED: LORA-434 PO (19:57)
[2018-06-15] MEDS ORDERED: PRED-220 PO (19:57)
[2018-06-15 21:12] VITALS: BP 155/96
--- NOTE | 2018-06-16 09:56 | EKG ---
[facility] [address] [place] [address] Test Date: 2018-06-15 Test Time: 17:08:57 Pat Name: KAYLA JONES Department: Room: Gender: [employer] Fire[employer]: : [id number] Requested By: ZOIE CHARLES Order Number: [id number] Reading MD: Luis Manuel Thornton MD Measurements Intervals [place] Rate: 110 P: 68 [place]: 158 QRS: 37 QRSD: 82 T: 54 QT: 322 QTc: 441 Interpretive Statements SINUS TACHYCARDIA NON-SPECIFIC ST/T CHANGES Electronically Signed On 06-18-2018 14:10:03 CDT by Luis Manuel Thornton MD
== END 2018-06-15 21:19 | disposition home or self-care (01) ==
LOC: ER 16:55
DX: R06.02 Shortness of breath (principal); I11.0 Hypertensive heart disease with heart failure; I50.9 Heart failure, unspecified; J43.9 Emphysema, unspecified; Z88.6 Allergy status to analgesic agent
CPT/HCPCS: 36415; 36600; 71045; 80053; 82550; 82805; 83605; 83880; 84484; 85007; 85025; 93005; 94640; 96374; 99285; J2930; J7030; J7620; 96361

== ENCOUNTER 2018-06-20 16:16 | Inpatient (IN) | payer MEDICARE, MEDICAID ==
[~2018-06-20] VITALS: Ht 180.3 cm; Wt 75.1 kg
[~2018-06-20 16:16] MED LIST changes: +LORA-434 PO
[2018-06-20] MEDS ORDERED: methylPREDNISolone SOD SUCC PF 125 MG/2 ML VIAL. IV ONE (16:30)
[2018-06-20] MEDS ORDERED: IPRATRPIUM/ALBUTEROL 0.5/2.5MG 3 ML NEBU. NEB ONE (16:30)
[2018-06-20 17:02] LABS: BASO % 0 % (0-3); EOS % 0 % (0-3); HEMATOCRIT 34.7 % (39.0-53.0); HEMOGLOBIN 11.7 g/dL (13.0-17.5); LYMPH # 0.3 x10^3/uL (1.0-4.8); LYMPH % 3 % (24-48); MEAN CORPUSCULAR HEMOGLOBIN 30 pg (25-35); MEAN CORPUSCULAR HGB CONC 34 g/dL (31-37); MEAN CORPUSCULAR VOLUME 89 fL (79-100); MONO # 0.5 x10^3/uL (0.0-1.1); MONO % 6 % (0-9); NEUT % 90 % (31-73); PLATELET COUNT 200 x10^3/uL (140-400); RED BLOOD COUNT 3.89 x10^6/uL (4.30-5.70); RED CELL DISTRIBUTION WIDTH 15.9 % (11.5-14.5); WHITE BLOOD COUNT 7.7 x10^3/uL (4.0-11.0)
--- NOTE | 2018-06-20 17:08 | PHYS DOC ---
Past Medical History Past Medical History: Bronchitis, CHF, COPD, Heart Disease, Hypertension, Other Additional Past Medical Histor: EMPHYSEMA-on 3 L NC, "prediabetes" Past Surgical History: Other Additional Past Surgical Histo: HERNIA REPAIR Alcohol Use: None Drug Use: None Adult General Chief Complaint Chief Complaint: SHORTNESS OF BREATH HPI HPI Patient is a 58 year old male presented to ER today for evaluation of trouble breathing since this morning. Patient also complaint of productive cough with green sputum yesterday but became clear this morning. Patient has history of COPD, he is on 3 L of oxygen at home. He had tried neb treatment at home but did not get better so he came here for evaluation. Patient is a former smoker, he stopped smoking about 5 years ago. Patient denies any chest pain, no fever. Review of Systems Review of Systems Constitutional: Denies fever or chills [] Eyes: Denies change in visual acuity, redness, or eye pain [] HENT: Denies nasal congestion or sore throat [] Respiratory: Positive for cough and shortness of breath [] Cardiovascular: No additional information not addressed in HPI [] GI: Denies abdominal pain, nausea, vomiting, bloody stools or diarrhea [] : Denies dysuria or hematuria [] Musculoskeletal: Denies back pain or joint pain [] Integument: Denies rash or skin lesions [] Neurologic: Denies headache, focal weakness or sensory changes [] Endocrine: Denies polyuria or polydipsia [] All other systems were reviewed and found to be within normal limits, except as documented in this note. Current Medications Current Medications Current Medications Medications (Trade) Dose Ordered Sig/Candy Start Time Stop Time Status Last Admin Dose Admin Albuterol/ Ipratropium (Duoneb) 3 ml 1X ONCE 06/20/18 16:30 06/20/18 16:31 DC 06/20/18 16:52 3 ML Methylprednisolone Sodium Succinate (SOLU-Medrol 125MG VIAL) 125 mg 1X ONCE 06/20/18 16:30 06/20/18 16:31 DC 06/20/18 17:35 125 MG Allergies Allergies Allergies Coded Allergies Type Severity Reaction Last Updated Verified acetaminophen Allergy Intermediate TAKES NORCO AT HOME 01/29/18 Yes Physical Exam Physical Exam Constitutional: Well developed, well nourished, no acute distress, non-toxic appearance. [] HENT: Normocephalic, atraumatic, bilateral external ears normal, oropharynx m oist, no oral exudates, nose normal. [] Eyes: PERRLA, EOMI, conjunctiva normal, no discharge. [] Neck: Normal range of motion, no tenderness, supple, no stridor. [] Cardiovascular:Heart rate regular rhythm, no murmur [] Lungs & Thorax: decrease breath sound Bilaterally, moderate expiratory and inspiratory wheezing diffusely. Abdomen: Bowel sounds normal, soft, no tenderness, no masses, no pulsatile masses. [] Skin: Warm, dry, no erythema, no rash. [] Back: No tenderness, no CVA tenderness. [] Extremities: No tenderness, no cyanosis, no clubbing, ROM intact, no edema. [] Neurologic: Alert and oriented X 3, normal motor function, normal sensory function, no focal deficits noted. [] Psychologic: Affect normal, judgement normal, mood normal. [] Current Patient Data Vital Signs Vital Signs Date Time Temp Pulse Resp B/P (MAP) Pulse Ox O2 Delivery O2 Flow Rate FiO2 06/20/18 17:27 100 18 127/89 (102) 98 Room Air 06/20/18 16:52 5.0 06/20/18 16:40 98.3 98.3 Lab Values Laboratory Tests Test 06/20/18 16:45 White Blood Count 7.7 x10^3/uL (4.0-11.0) Red Blood Count 3.89 x10^6/uL (4.30-5.70) L Hemoglobin 11.7 g/dL (13.0-17.5) L Hematocrit 34.7 % (39.0-53.0) L Mean Corpuscular Volume 89 fL (79-100) Mean Corpuscular Hemoglobin 30 pg (25-35) Mean Corpuscular Hemoglobin Concent 34 g/dL (31-37) Red Cell Distribution Width 15.9 % (11.5-14.5) H Platelet Count 200 x10^3/uL (140-400) Neutrophils (%) (Auto) 90 % (31-73) H Lymphocytes (%) (Auto) 3 % (24-48) L Monocytes (%) (Auto) 6 % (0-9) Eosinophils (%) (Auto) 0 % (0-3) Basophils (%) (Auto) 0 % (0-3) Neutrophils # (Auto) 7.0 x10^3uL (1.8-7.7) Lymphocytes # (Auto) 0.3 x10^3/uL (1.0-4.8) L Monocytes # (Auto) 0.5 x10^3/uL (0.0-1.1) Eosinophils # (Auto) 0.0 x10^3/uL (0.0-0.7) Basophils # (Auto) 0.0 x10^3/uL (0.0-0.2) Segmented Neutrophils % 87 % (35-66) H Lymphocytes % 7 % (24-48) L Monocytes % 5 % (0-10) Eosinophils % 1 % (0-5) Platelet Estimate Adequate (ADEQUATE) Polychromasia Slight Anisocytosis Slight Schistocytes Few Sodium Level 141 mmol/L (136-145) Potassium Level 3.4 mmol/L (3.5-5.1) L Chloride Level 100 mmol/L (98-107) Carbon Dioxide Level 32 mmol/L (21-32) Anion Gap 9 (6-14) Blood Urea Nitrogen 10 mg/dL (8-26) Creatinine 1.0 mg/dL (0.7-1.3) Estimated GFR (Cockcroft-Gault) 92.5 BUN/Creatinine Ratio 10 (6-20) Glucose Level 128 mg/dL (70-99) H Calcium Level 8.8 mg/dL (8.5-10.1) Total Bilirubin 0.5 mg/dL (0.2-1.0) Aspartate Amino Transferase (AST) 22 U/L (15-37) Alanine Aminotransferase (ALT) 32 U/L (16-63) Alkaline Phosphatase 99 U/L (46-116) Creatine Kinase 167 U/L (39-308) Creatine Kinase MB (Mass) 2.4 ng/mL (0.0-3.6) Creatine Kinase MB Relative Index 1.4 % (0-4) Troponin I Quantitative < 0.017 ng/mL (0.000-0.055) WT-Tlr-X-Type Natriuretic Peptide 106 pg/mL (0-124) Total Protein 6.4 g/dL (6.4-8.2) Albumin 3.3 g/dL (3.4-5.0) L Albumin/Globulin Ratio 1.1 (1.0-1.7) Laboratory Tests 06/20/18 16:45 Laboratory Tests 06/20/18 16:45 EKG EKG ekg was read by this physician at 1633, rate of 118 BPM, SINUS TACHYCARDIA, NO STEMI. [] Radiology/Procedures Radiology/Procedures [[facility] [address] [place] [address] IMAGING REPORT Signed PATIENT: KAYLA JONES ACCOUNT: [id number] : 1960 LOCATION: ER AGE: 58 SEX: M EXAM STATUS: REG ER ORD. PHYSICIAN: JUSTYN PAL DO REASON: Short of breath, hx of COPD PROCEDURE: PORTABLE CHEST 1V EXAM: Chest, single view. HISTORY: Short of breath. COMPARISON: 06/15/2018 FINDINGS: A frontal view of the chest is obtained. There is severe left upper lobe predominant emphysema with a large left upper lobe bulla. There is stable blunting of the costophrenic angles likely due to basilar pleural thickening. There is bilateral lower lobe atelectasis or interstitial infiltrate. There is no pneumothorax. The heart is normal in size. IMPRESSION: 1. Severe left upper lobe predominant emphysema with large left upper lobe bulla. 2. Stable bilateral basilar pleural parenchymal scarring superimposed on atelectasis or interstitial infiltrate. 3. Note is made that a spiculated nodular opacity within the right lower lobe demonstrated on a prior CT dated 05/30/2018 is not well seen radiographically. Please refer to the CT report for follow-up recommendations. Electronically signed by: Unique Pereyra MD (06/20/2018 5:11 PM) [facility] DICTATED and SIGNED BY: UNIQUE PEREYRA MD DATE: 06/20/18 0163 ] Course & Med Decision Making Course & Med Decision Making Pertinent Labs and Imaging studies reviewed. (See chart for details) [] Dragon Disclaimer Dragon Disclaimer This electronic medical record was generated, in whole or in part, using a voice recognition dictation system. Departure Departure Impression: Primary Impression: COPD with exacerbation Disposition: ADMITTED INPATIENT Admitting Physician: Dar Hathaway Condition: STABLE Referrals: UNKNOWN PCP NAME (PCP) JUSTYN PAL DO June 20, 2018 17:08
[2018-06-20 17:14] LABS: CALCIUM 8.8 mg/dL (8.5-10.1); GFR 92.5; POTASSIUM 3.4 mmol/L (3.5-5.1)
--- NOTE | 2018-06-20 17:14 | RAD ---
EXAM: Chest, single view. HISTORY: Short of breath. COMPARISON: 06/15/2018 FINDINGS: A frontal view of the chest is obtained. There is severe left upper lobe predominant emphysema with a large left upper lobe bulla. There is stable blunting of the costophrenic angles likely due to basilar pleural thickening. There is bilateral lower lobe atelectasis or interstitial infiltrate. There is no pneumothorax. The heart is normal in size. IMPRESSION: 1. Severe left upper lobe predominant emphysema with large left upper lobe bulla. 2. Stable bilateral basilar pleural parenchymal scarring superimposed on atelectasis or interstitial infiltrate. 3. Note is made that a spiculated nodular opacity within the right lower lobe demonstrated on a prior CT dated 05/30/2018 is not well seen radiographically. Please refer to the CT report for follow-up recommendations. Electronically signed by: Unique Sepulveda MD (06/20/2018 5:11 PM) [facility]
[2018-06-20 17:20] LABS: ALBUMIN 3.3 g/dL (3.4-5.0); ALBUMIN/GLOBULIN RATIO 1.1 (1.0-1.7); TOTAL BILIRUBIN 0.5 mg/dL (0.2-1.0); TOTAL PROTEIN 6.4 g/dL (6.4-8.2)
[2018-06-20 17:33] LABS: % EOS 1 % (0-5); % LYMPHS 7 % (24-48); % MONOS 5 % (0-10); % SEGS 87 % (35-66)
[2018-06-20 17:38] LABS: ANISOCYTOSIS SLIGHT; PLT ESTIMATE ADEQUATE (ADEQUATE); POLYCHROMASIA SLIGHT; SCHISTOCYTES FEW
--- NOTE | 2018-06-20 19:14 | PDOC1 ---
History and Physical Date of Admission: Date of Admission DATE: 06/20/18 TIME: 19:11 Chief Complaint: Problems: (1) Essential hypertension (2) Healthcare-associated pneumonia (3) Hypoxia (4) Left sided chest pain (5) HCAP (healthcare-associated pneumonia) (6) Elevated troponin (7) Fever (8) Acute renal failure (9) Left lower lobe pneumonia (10) Community acquired pneumonia (11) Dysphagia (12) Hypoxemia (13) Hypokalemia (14) Back pain (15) Acute bronchitis (16) Rgswg-ni-dpigqgj kidney injury (17) Hyperglycemia (18) Emphysema of lung (19) Shortness of breath (20) Emphysema lung (21) COPD with exacerbation Chief Complain: Shortness breath and cough History of Present Illness: HPI: Middle-aged -[place] male who has near end-stage COPD He states he wants to go to [place] to the [facility] to get a lobectomy to help with his COPD He can afford to do that Lately reviewed we admitted him several times with COPD exacerbations Once again he presents with cough shortness of breath weakness wheezing He states he did quit smoking Describes as agonizing rated at 10 out 10 Has associated anxiety He increase his home meds for that and work Chest x-ray showing severe COPD and emphysema I discussed the case with the ER physician were going to admit the patient and consult pulmonary give him some IV antibiotic steroids breathing treatments and oxygen Past Medical/Surgical History: PMH/PSH: Past Medical History: Bronchitis, CHF, COPD, Heart Disease, Hypertension, Other Additional Past Medical Histor: EMPHYSEMA-on 3 L NC, "prediabetes" Past Surgical History: Other Additional Past Surgical Histo: HERNIA REPAIR Alcohol Use: None Drug Use: None Allergies: Allergies: Coded Allergies: acetaminophen (Verified Allergy, Intermediate, TAKES NORCO AT HOME, 01/29/18) Family History: Family History: Hypertension Social History: Social Hisoty: He quit smoking no drinking or drugs he is retired Current Medications: Current Medications Current Medications Methylprednisolone Sodium Succinate (SOLU-Medrol 125MG VIAL) 125 mg 1X ONCE IV Last administered on 06/20/18at 17:35; Start 06/20/18 at 16:30; Stop 06/20/18 at 16:31; Status DC Albuterol/ Ipratropium (Duoneb) 3 ml 1X ONCE NEB Last administered on 06/20/18at 16:52; Start 06/20/18 at 16:30; Stop 06/20/18 at 16:31; Status DC Albuterol/ Ipratropium (Duoneb) 3 ml RTQID NEB ; Start 06/20/18 at 20:00; Stop 06/21/18 at 19:59 Active Scripts Active Ativan (Lorazepam) 1 Mg Tablet 1 Mg PO BID Prednisone (Prednisone) 10 Mg Tablet 10 Mg PO UD Take 3 tablets by mouth twice a day for 3 days, then take 2 tablets by mouth twice a day for 3 days, then take 1 tablet by mouth twice a day for 3 days, then take 1 tablet by mouth daily x 3 days, then stop. Colace (Docusate Sodium) 100 Mg Capsule 100 Mg PO PRN BID PRN 30 Days Mag-Al Plus Xs Suspension (Mag Hydrox/Al Hydrox/Simeth) 30 Ml Oral.susp 30 Ml PO PRN DAILY PRN 10 Days Guaifenesin 100 Mg/5 Ml Liquid 200 Mg PO PRN Q4HRS PRN 30 Days Tylenol (Acetaminophen) 325 Mg Tablet 650 Mg PO PRN Q4HRS PRN 10 Days Amox Tr-K Clv 875-125 Mg Tab (Amoxicillin/Potassium Clav) 1 Each Tablet 1 Tab PO BID 10 Days Ventolin Hfa Inhaler (Albuterol Sulfate) 18 Gm Hfa.aer.ad 2 Puff INH Q4HRS Doxycycline Hyclate 100 Mg Capsule 1 Cap PO BID Mobic (Meloxicam) 7.5 Mg Tablet 1-2 Tab PO DAILY 5 Days Reglan (Metoclopramide Hcl) 10 Mg Tablet 0.5 Tab PO QID 30 Days Prednisone 20 Mg Tablet 40 Mg PO DAILY Furosemide 20 Mg Tablet 1 Tab PO DAILY Albuterol Sulfate Neb Soln (Albuterol Sulfate) 2.5 Mg/3 Ml Vial.neb 1 Vial NEB PRN Q4HRS Reported Vitamin D3 (Cholecalciferol (Vitamin D3)) 5,000 Unit Tablet 5,000 Unit PO DAILY Potassium Chloride 20 Meq Tablet.er 20 Meq PO DAILY Protonix (Pantoprazole Sodium) 20 Mg Tablet.dr 1 Tab PO DAILY Flonase Allergy Relief (Fluticasone Propionate) 9.9 Ml [place].susp 2 Sprays NS DAILY Atorvastatin Calcium 10 Mg Tablet 10 Mg PO HS Symbicort 160-4.5 Mcg Inhaler (Budesonide/Formoterol Fumarate) 10.2 Gm Hfa.aer.ad 2 Puff IH BID Spiriva (Tiotropium [place]) 18 Mcg Cap.w.dev 2 Inh IH DAILY ROS: Review of Systems Review of System REVIEW OF SYSTEMS: GENERAL: Denies weakness SKIN: No bruising, hair changes or rashes. EYES: No blurred, double or loss of vision. NOSE AND THROAT: No history of nosebleeds, hoarseness or sore throat. HEART: No history of palpitations, chest pain or shortness of breath on exertion. LUNGS: He complains of severe shortness of breath cough and wheezing GASTROINTESTINAL: Denies changes in appetite, nausea, vomiting, diarrhea or constipation. GENITOURINARY: No history of frequency, urgency, hesitancy or nocturia. NEUROLOGIC: Denies history of numbness, tingling, tremor or weakness. PSYCHIATRIC: No history of panic, anxiety or depression. ENDOCRINE: No history of heat or cold intolerance, polyuria or polydipsia. EXTREMITIES: Denies muscle weakness, joint pain, pain on walking or stiffness. Physical Exam: Vital Signs: Vital Signs Date Time Temp Pulse Resp B/P (MAP) Pulse Ox O2 Delivery O2 Flow Rate FiO2 06/20/18 18:27 104 139/82 (101) 96 06/20/18 17:57 25 Room Air 06/20/18 16:52 5.0 06/20/18 16:40 98.3 98.3 Physcial Exam: GEN.: No apparent distress. Alert and oriented. HEENT: Head is normocephalic, atraumatic NECK: Supple, no JVD LUNGS: Diminished breath sounds with diffuse wheezing HEART: RRR, S1, S2 present. Peripheral pulses intact ABDOMEN: Soft, nontender. Positive bowel sounds no organomegaly EXTREMITIES: Without any cyanosis, clubbing, or edema. Pedal pulses intact NEUROLOGIC: Normal speech, normal tone. A&O x 3 PSYCHIATRIC: Normal affect, normal mood. Stable SKIN: No ulcerations or rashes VASCULAR: Good capillary refill Labs: Labs: Laboratory Tests Test 06/20/18 16:45 White Blood Count 7.7 x10^3/uL (4.0-11.0) Red Blood Count 3.89 x10^6/uL (4.30-5.70) Hemoglobin 11.7 g/dL (13.0-17.5) Hematocrit 34.7 % (39.0-53.0) Mean Corpuscular Volume 89 fL (79-100) Mean Corpuscular Hemoglobin 30 pg (25-35) Mean Corpuscular Hemoglobin Concent 34 g/dL (31-37) Red Cell Distribution Width 15.9 % (11.5-14.5) Platelet Count 200 x10^3/uL (140-400) Neutrophils (%) (Auto) 90 % (31-73) Lymphocytes (%) (Auto) 3 % (24-48) Monocytes (%) (Auto) 6 % (0-9) Eosinophils (%) (Auto) 0 % (0-3) Basophils (%) (Auto) 0 % (0-3) Neutrophils # (Auto) 7.0 x10^3uL (1.8-7.7) Lymphocytes # (Auto) 0.3 x10^3/uL (1.0-4.8) Monocytes # (Auto) 0.5 x10^3/uL (0.0-1.1) Eosinophils # (Auto) 0.0 x10^3/uL (0.0-0.7) Basophils # (Auto) 0.0 x10^3/uL (0.0-0.2) Segmented Neutrophils % 87 % (35-66) Lymphocytes % 7 % (24-48) Monocytes % 5 % (0-10) Eosinophils % 1 % (0-5) Platelet Estimate Adequate (ADEQUATE) Polychromasia Slight Anisocytosis Slight Schistocytes Few Sodium Level 141 mmol/L (136-145) Potassium Level 3.4 mmol/L (3.5-5.1) Chloride Level 100 mmol/L (98-107) Carbon Dioxide Level 32 mmol/L (21-32) Anion Gap 9 (6-14) Blood Urea Nitrogen 10 mg/dL (8-26) Creatinine 1.0 mg/dL (0.7-1.3) Estimated GFR (Cockcroft-Gault) 92.5 BUN/Creatinine Ratio 10 (6-20) Glucose Level 128 mg/dL (70-99) Calcium Level 8.8 mg/dL (8.5-10.1) Total Bilirubin 0.5 mg/dL (0.2-1.0) Aspartate Amino Transf (AST/SGOT) 22 U/L (15-37) Alanine Aminotransferase (ALT/SGPT) 32 U/L (16-63) Alkaline Phosphatase 99 U/L (46-116) Creatine Kinase 167 U/L (39-308) Creatine Kinase MB (Mass) 2.4 ng/mL (0.0-3.6) Creatine Kinase MB Relative Index 1.4 % (0-4) Troponin I Quantitative < 0.017 ng/mL (0.000-0.055) QC-Cvz-A-Type Natriuretic Peptide 106 pg/mL (0-124) Total Protein 6.4 g/dL (6.4-8.2) Albumin 3.3 g/dL (3.4-5.0) Albumin/Globulin Ratio 1.1 (1.0-1.7) Laboratory Tests Test 06/20/18 16:45 White Blood Count 7.7 x10^3/uL (4.0-11.0) Red Blood Count 3.89 x10^6/uL (4.30-5.70) Hemoglobin 11.7 g/dL (13.0-17.5) Hematocrit 34.7 % (39.0-53.0) Mean Corpuscular Volume 89 fL (79-100) Mean Corpuscular Hemoglobin 30 pg (25-35) Mean Corpuscular Hemoglobin Concent 34 g/dL (31-37) Red Cell Distribution Width 15.9 % (11.5-14.5) Platelet Count 200 x10^3/uL (140-400) Neutrophils (%) (Auto) 90 % (31-73) Lymphocytes (%) (Auto) 3 % (24-48) Monocytes (%) (Auto) 6 % (0-9) Eosinophils (%) (Auto) 0 % (0-3) Basophils (%) (Auto) 0 % (0-3) Neutrophils # (Auto) 7.0 x10^3uL (1.8-7.7) Lymphocytes # (Auto) 0.3 x10^3/uL (1.0-4.8) Monocytes # (Auto) 0.5 x10^3/uL (0.0-1.1) Eosinophils # (Auto) 0.0 x10^3/uL (0.0-0.7) Basophils # (Auto) 0.0 x10^3/uL (0.0-0.2) Segmented Neutrophils % 87 % (35-66) Lymphocytes % 7 % (24-48) Monocytes % 5 % (0-10) Eosinophils % 1 % (0-5) Platelet Estimate Adequate (ADEQUATE) Polychromasia Slight Anisocytosis Slight Schistocytes Few Sodium Level 141 mmol/L (136-145) Potassium Level 3.4 mmol/L (3.5-5.1) Chloride Level 100 mmol/L (98-107) Carbon Dioxide Level 32 mmol/L (21-32) Anion Gap 9 (6-14) Blood Urea Nitrogen 10 mg/dL (8-26) Creatinine 1.0 mg/dL (0.7-1.3) Estimated GFR (Cockcroft-Gault) 92.5 BUN/Creatinine Ratio 10 (6-20) Glucose Level 128 mg/dL (70-99) Calcium Level 8.8 mg/dL (8.5-10.1) Total Bilirubin 0.5 mg/dL (0.2-1.0) Aspartate Amino Transf (AST/SGOT) 22 U/L (15-37) Alanine Aminotransferase (ALT/SGPT) 32 U/L (16-63) Alkaline Phosphatase 99 U/L (46-116) Creatine Kinase 167 U/L (39-308) Creatine Kinase MB (Mass) 2.4 ng/mL (0.0-3.6) Creatine Kinase MB Relative Index 1.4 % (0-4) Troponin I Quantitative < 0.017 ng/mL (0.000-0.055) CN-Ixj-T-Type Natriuretic Peptide 106 pg/mL (0-124) Total Protein 6.4 g/dL (6.4-8.2) Albumin 3.3 g/dL (3.4-5.0) Albumin/Globulin Ratio 1.1 (1.0-1.7) Images: Images Chest x-ray shows severe COPD Assessment/Plan Assessment/Plan Severe COPD exacerbation with hypoxia and respiratory failure middle-aged male with the above-noted comorbidities Plan Chronic monitoring IV steroids Breathing treatments oxygen Consult pulmonary IV antibiotics Home meds Full code DVT prophylaxis Frequent labs Prognosis long-term is guarded TAMMY MARKS III DO June 20, 2018 19:14
[2018-06-20] MEDS ORDERED: IPRATRPIUM/ALBUTEROL 0.5/2.5MG 3 ML NEBU. NEB SCH (20:00)
[2018-06-20] MEDS ORDERED: FURO40TA4 PO (20:44)
--- NOTE | 2018-06-20 22:02 | EKG ---
[facility] [address] [place] [address] Test Date: 2018-06-20 Test Time: 16:31:26 Pat Name: KAYLA JONES Department: Room: 646 1 Gender: M [employer]: : 1960 Requested By: JUSTYN PAL Order Number: [id number] Reading MD: Young Mejia Measurements Intervals [place] Rate: 117 P: [place]: QRS: 36 QRSD: 80 T: 28 QT: 326 QTc: 459 Interpretive Statements SINUS TACHYCARDIA T ABNORMALITY IN ANTEROSEPTAL LEADS Electronically Signed On 07-18-2018 13:14:47 CDT by Young Mejia
[2018-06-20] MEDS ORDERED: guaiFENesin ORAL 200 MG/10 ML LIQUID. PO PRN (22:30)
[2018-06-20] MEDS ORDERED: ALBUTEROL SULFATE 2.5 MG/3 ML NEBU. NEB PRN (22:30)
[2018-06-20] MEDS: LORazepam 1 MG TABLET PO SCH (23:00)
[2018-06-20] MEDS: cefTRIAXone IV Push 1 GM VIAL. IVP SCH (23:00)
[2018-06-20] MEDS: ATORVASTATIN CALCIUM 10 MG TABLET. PO SCH (23:00)
[2018-06-20] MEDS ORDERED: TRAM50TA PO (23:09)
[2018-06-20 23:11] VITALS: BP 96/57
[2018-06-20] MEDS: traMADol 50 MG TABLET PO PRN (23:24)
[2018-06-21 03:00] VITALS: BP 133/88
[2018-06-21] MEDS ORDERED: methylPREDNISolone SOD SUCC PF 40 MG/ML VIAL. IV SCH (06:00)
[2018-06-21 07:00] VITALS: BP 147/87
[2018-06-21] MEDS: IPRATRPIUM/ALBUTEROL 0.5/2.5MG 3 ML NEBU. NEB SCH ×4 (07:30→20:00)
[2018-06-21] MEDS: BUDESONIDE 0.5 MG/2 ML NEBU. NEB SCH ×2 (07:30→20:00)
[2018-06-21] MEDS: LORazepam 1 MG TABLET PO SCH ×2 (08:24→20:40)
[2018-06-21] MEDS: METOCLOPRAMIDE 5 MG TABLET. PO SCH ×4 (08:24→20:40)
[2018-06-21] MEDS: FUROSEMIDE 40 MG TABLET. PO SCH (08:24)
[2018-06-21] MEDS: traMADol 50 MG TABLET PO PRN ×2 (08:24→19:16)
[2018-06-21] MEDS: POTASSIUM CHLORIDE 20 MEQ TABLET.ER. PO SCH (08:24)
[2018-06-21] MEDS: PANTOPRAZOLE 40 MG TABLET.DR. PO SCH (08:24)
[2018-06-21] MEDS: CHOLECALCIFEROL (VITAMIN D3) 5,000 UNIT CAPSULE PO SCH (08:25)
[2018-06-21] MEDS: FLUTICASONE 50MCG/NASAL SPRAY 16GM BOTTLE. NS SCH (09:00)
[2018-06-21] MEDS ORDERED: predniSONE 20 MG TABLET PO SCH (09:00)
[2018-06-21] MEDS ORDERED: POTASSIUM CHLORIDE 20 MEQ TABLET.ER. PO ONE (09:15)
--- NOTE | 2018-06-21 11:46 | PDOC ---
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 Chronic steroid use Weight loss Insomnia, mood swings in the background of chronic steroid use Hx diastolic heart failure HTN on meds, dyslipidemia on statin Ex smoker hypokalemia Back pain History of Present Illness History of Present Illness He feels crappy Just walking to the bathroom is SOA Known to me He has frequent hospitalizations and frequent COPD exacerbations Looks like this is end stage COPD has quit smoking because of significant COPD X-ray does not show pneumonia but shows emphysematous lung with known left upper lobe large bullae echo: 05/2018: <Conclusion> The left ventricular systolic function is normal and the ejection fraction is within normal range. The Ejection Fraction is >55%. There is normal LV segmental wall motion. The right ventricle is moderately dilated. The right ventricular systolic function is normal. K 3.4 PLAN: COPD treatment Overall prognosis is poor Technically could be a hospice candidate with active medical treatment but I don't think he is there yet in mind Back pain-Lidoderm patch KCl [id number] Vitals Vitals Vital Signs Date Time Temp Pulse Resp B/P (MAP) Pulse Ox O2 Delivery O2 Flow Rate FiO2 06/21/18 10:50 Nasal Cannula 2.5 06/21/18 07:31 100 06/21/18 07:00 97.9 85 22 147/87 (107) 97.9 Physical Exam General: Alert, Oriented X3, Cooperative, mild distress Heart: Regular rate, Normal S1, Normal S2, Other (sinus tachycardia) Lungs: Wheezing Abdomen: Normal bowel sounds, Soft Extremities: No clubbing, No cyanosis Skin: Other (onychomycosis both feet) Labs LABS Laboratory Tests Test 06/20/18 16:45 White Blood Count 7.7 x10^3/uL (4.0-11.0) Red Blood Count 3.89 x10^6/uL (4.30-5.70) Hemoglobin 11.7 g/dL (13.0-17.5) Hematocrit 34.7 % (39.0-53.0) Mean Corpuscular Volume 89 fL (79-100) Mean Corpuscular Hemoglobin 30 pg (25-35) Mean Corpuscular Hemoglobin Concent 34 g/dL (31-37) Red Cell Distribution Width 15.9 % (11.5-14.5) Platelet Count 200 x10^3/uL (140-400) Neutrophils (%) (Auto) 90 % (31-73) Lymphocytes (%) (Auto) 3 % (24-48) Monocytes (%) (Auto) 6 % (0-9) Eosinophils (%) (Auto) 0 % (0-3) Basophils (%) (Auto) 0 % (0-3) Neutrophils # (Auto) 7.0 x10^3uL (1.8-7.7) Lymphocytes # (Auto) 0.3 x10^3/uL (1.0-4.8) Monocytes # (Auto) 0.5 x10^3/uL (0.0-1.1) Eosinophils # (Auto) 0.0 x10^3/uL (0.0-0.7) Basophils # (Auto) 0.0 x10^3/uL (0.0-0.2) Segmented Neutrophils % 87 % (35-66) Lymphocytes % 7 % (24-48) Monocytes % 5 % (0-10) Eosinophils % 1 % (0-5) Platelet Estimate Adequate (ADEQUATE) Polychromasia Slight Anisocytosis Slight Schistocytes Few Sodium Level 141 mmol/L (136-145) Potassium Level 3.4 mmol/L (3.5-5.1) Chloride Level 100 mmol/L (98-107) Carbon Dioxide Level 32 mmol/L (21-32) Anion Gap 9 (6-14) Blood Urea Nitrogen 10 mg/dL (8-26) Creatinine 1.0 mg/dL (0.7-1.3) Estimated GFR (Cockcroft-Gault) 92.5 BUN/Creatinine Ratio 10 (6-20) Glucose Level 128 mg/dL (70-99) Calcium Level 8.8 mg/dL (8.5-10.1) Total Bilirubin 0.5 mg/dL (0.2-1.0) Aspartate Amino Transf (AST/SGOT) 22 U/L (15-37) Alanine Aminotransferase (ALT/SGPT) 32 U/L (16-63) Alkaline Phosphatase 99 U/L (46-116) Creatine Kinase 167 U/L (39-308) Creatine Kinase MB (Mass) 2.4 ng/mL (0.0-3.6) Creatine Kinase MB Relative Index 1.4 % (0-4) Troponin I Quantitative < 0.017 ng/mL (0.000-0.055) GW-Yhf-A-Type Natriuretic Peptide 106 pg/mL (0-124) Total Protein 6.4 g/dL (6.4-8.2) Albumin 3.3 g/dL (3.4-5.0) Albumin/Globulin Ratio 1.1 (1.0-1.7) Review of Systems Review of Systems Weak, fatigued, SOA, no chest pain, no fever, no abdominal symptoms Assessment and Plan Assessmemt and Plan Problems Medical Problems: (1) COPD with exacerbation Status: Acute Comment Review of Relevant I have reviewed the following items franki (where applicable) has been applied. Labs Laboratory Tests Test 06/20/18 16:45 White Blood Count 7.7 x10^3/uL (4.0-11.0) Red Blood Count 3.89 x10^6/uL (4.30-5.70) Hemoglobin 11.7 g/dL (13.0-17.5) Hematocrit 34.7 % (39.0-53.0) Mean Corpuscular Volume 89 fL (79-100) Mean Corpuscular Hemoglobin 30 pg (25-35) Mean Corpuscular Hemoglobin Concent 34 g/dL (31-37) Red Cell Distribution Width 15.9 % (11.5-14.5) Platelet Count 200 x10^3/uL (140-400) Neutrophils (%) (Auto) 90 % (31-73) Lymphocytes (%) (Auto) 3 % (24-48) Monocytes (%) (Auto) 6 % (0-9) Eosinophils (%) (Auto) 0 % (0-3) Basophils (%) (Auto) 0 % (0-3) Neutrophils # (Auto) 7.0 x10^3uL (1.8-7.7) Lymphocytes # (Auto) 0.3 x10^3/uL (1.0-4.8) Monocytes # (Auto) 0.5 x10^3/uL (0.0-1.1) Eosinophils # (Auto) 0.0 x10^3/uL (0.0-0.7) Basophils # (Auto) 0.0 x10^3/uL (0.0-0.2) Segmented Neutrophils % 87 % (35-66) Lymphocytes % 7 % (24-48) Monocytes % 5 % (0-10) Eosinophils % 1 % (0-5) Platelet Estimate Adequate (ADEQUATE) Polychromasia Slight Anisocytosis Slight Schistocytes Few Sodium Level 141 mmol/L (136-145) Potassium Level 3.4 mmol/L (3.5-5.1) Chloride Level 100 mmol/L (98-107) Carbon Dioxide Level 32 mmol/L (21-32) Anion Gap 9 (6-14) Blood Urea Nitrogen 10 mg/dL (8-26) Creatinine 1.0 mg/dL (0.7-1.3) Estimated GFR (Cockcroft-Gault) 92.5 BUN/Creatinine Ratio 10 (6-20) Glucose Level 128 mg/dL (70-99) Calcium Level 8.8 mg/dL (8.5-10.1) Total Bilirubin 0.5 mg/dL (0.2-1.0) Aspartate Amino Transf (AST/SGOT) 22 U/L (15-37) Alanine Aminotransferase (ALT/SGPT) 32 U/L (16-63) Alkaline Phosphatase 99 U/L (46-116) Creatine Kinase 167 U/L (39-308) Creatine Kinase MB (Mass) 2.4 ng/mL (0.0-3.6) Creatine Kinase MB Relative Index 1.4 % (0-4) Troponin I Quantitative < 0.017 ng/mL (0.000-0.055) NO-Mbb-G-Type Natriuretic Peptide 106 pg/mL (0-124) Total Protein 6.4 g/dL (6.4-8.2) Albumin 3.3 g/dL (3.4-5.0) Albumin/Globulin Ratio 1.1 (1.0-1.7) Laboratory Tests Test 06/20/18 16:45 White Blood Count 7.7 x10^3/uL (4.0-11.0) Red Blood Count 3.89 x10^6/uL (4.30-5.70) Hemoglobin 11.7 g/dL (13.0-17.5) Hematocrit 34.7 % (39.0-53.0) Mean Corpuscular Volume 89 fL (79-100) Mean Corpuscular Hemoglobin 30 pg (25-35) Mean Corpuscular Hemoglobin Concent 34 g/dL (31-37) Red Cell Distribution Width 15.9 % (11.5-14.5) Platelet Count 200 x10^3/uL (140-400) Neutrophils (%) (Auto) 90 % (31-73) Lymphocytes (%) (Auto) 3 % (24-48) Monocytes (%) (Auto) 6 % (0-9) Eosinophils (%) (Auto) 0 % (0-3) Basophils (%) (Auto) 0 % (0-3) Neutrophils # (Auto) 7.0 x10^3uL (1.8-7.7) Lymphocytes # (Auto) 0.3 x10^3/uL (1.0-4.8) Monocytes # (Auto) 0.5 x10^3/uL (0.0-1.1) Eosinophils # (Auto) 0.0 x10^3/uL (0.0-0.7) Basophils # (Auto) 0.0 x10^3/uL (0.0-0.2) Segmented Neutrophils % 87 % (35-66) Lymphocytes % 7 % (24-48) Monocytes % 5 % (0-10) Eosinophils % 1 % (0-5) Platelet Estimate Adequate (ADEQUATE) Polychromasia Slight Anisocytosis Slight Schistocytes Few Sodium Level 141 mmol/L (136-145) Potassium Level 3.4 mmol/L (3.5-5.1) Chloride Level 100 mmol/L (98-107) Carbon Dioxide Level 32 mmol/L (21-32) Anion Gap 9 (6-14) Blood Urea Nitrogen 10 mg/dL (8-26) Creatinine 1.0 mg/dL (0.7-1.3) Estimated GFR (Cockcroft-Gault) 92.5 BUN/Creatinine Ratio 10 (6-20) Glucose Level 128 mg/dL (70-99) Calcium Level 8.8 mg/dL (8.5-10.1) Total Bilirubin 0.5 mg/dL (0.2-1.0) Aspartate Amino Transf (AST/SGOT) 22 U/L (15-37) Alanine Aminotransferase (ALT/SGPT) 32 U/L (16-63) Alkaline Phosphatase 99 U/L (46-116) Creatine Kinase 167 U/L (39-308) Creatine Kinase MB (Mass) 2.4 ng/mL (0.0-3.6) Creatine Kinase MB Relative Index 1.4 % (0-4) Troponin I Quantitative < 0.017 ng/mL (0.000-0.055) LC-Ngn-M-Type Natriuretic Peptide 106 pg/mL (0-124) Total Protein 6.4 g/dL (6.4-8.2) Albumin 3.3 g/dL (3.4-5.0) Albumin/Globulin Ratio 1.1 (1.0-1.7) Medications Current Medications Methylprednisolone Sodium Succinate (SOLU-Medrol 125MG VIAL) 125 mg 1X ONCE IV Last administered on 06/20/18 17:35; Start 06/20/18 at 16:30; Stop 06/20/18 at 16:31; Status DC Albuterol/ Ipratropium (Duoneb) 3 ml 1X ONCE NEB Last administered on 06/20/18 16:52; Start 06/20/18 at 16:30; Stop 06/20/18 at 16:31; Status DC Albuterol/ Ipratropium (Duoneb) 3 ml RTQID NEB Last administered on 06/20/18 20:38; Start 06/20/18 at 20:00; Stop 06/20/18 at 22:33; Status DC Atorvastatin Calcium (Lipitor) 10 mg HS PO Last administered on 06/20/18 23:00; Start 06/21/18 at 00:00 Furosemide (Lasix) 40 mg DAILY PO Last administered on 06/21/18 08:24; Start 06/21/18 at 09:00 Guaifenesin (Robitussin) 200 mg PRN Q4HRS PRN PO COUGH 1ST CHOICE Last administered on 06/20/18 22:59; Start 06/20/18 at 22:30 Lorazepam (Ativan) 1 mg BID PO Last administered on 06/21/18 08:24; Start 06/21/18 at 00:00 Metoclopramide HCl (Reglan) 5 mg QIDACHS PO Last administered on 06/21/18 08:24; Start 06/21/18 at 07:30 Prednisone (Prednisone) 40 mg DAILY PO Last administered on 06/21/18 08:24; Start 06/21/18 at 09:00 Albuterol Sulfate (Ventolin Neb Soln) 2.5 mg PRN Q4HRS PRN NEB SHORTNESS OF BREATH; Start 06/20/18 at 22:30 Budesonide (Pulmicort) 0.5 mg RTBID NEB Last administered on 06/21/18at 07:30; Start 06/21/18 at 08:00 Vitamin D (Vitamin D3) 5,000 unit DAILY PO Last administered on 06/21/18 08:25; Start 06/21/18 at 09:00 Fluticasone Propionate (Flonase) 2 spray DAILY NS Last administered on 06/21/18 09:00; Start 06/21/18 at 09:00 Pantoprazole Sodium (Protonix) 40 mg DAILYAC PO Last administered on 06/21/18 08:24; Start 06/21/18 at 07:30 Potassium Chloride (Klor-Con) 20 meq DAILYWBKFT PO Last administered on 06/21/18 08:24; Start 06/21/18 at 08:00 Ceftriaxone Sodium (Rocephin) 1 gm Q24H IVP Last administered on 06/20/18at 23:00; Start 06/20/18 at 23:00 Methylprednisolone Sodium Succinate (SOLU-Medrol 40MG VIAL) 60 mg Q8HRS IV Last administered on 06/21/18at 05:06; Start 06/21/18 at 06:00 Albuterol/ Ipratropium (Duoneb) 3 ml RTQID NEB Last administered on 06/21/18at 10:50; Start 06/21/18 at 08:00 Albuterol Sulfate (Ventolin Neb Soln) 2.5 mg RTQID NEB ; Start 06/21/18 at 20:00; Status Cancel Tramadol HCl (Ultram) 50 mg PRN Q6HRS PRN PO MODERATE PAIN Last administered on 06/21/18 08:24; Start 06/20/18 at 23:15 Potassium Chloride (Klor-Con) 40 meq 1X ONCE PO Last administered on 06/21/18 09:15; Start 06/21/18 at 09:15; Stop 06/21/18 at 09:18; Status DC Active Scripts Active Ativan (Lorazepam) 1 Mg Tablet 1 Mg PO BID Prednisone (Prednisone) 10 Mg Tablet 10 Mg PO UD Take 3 tablets by mouth twice a day for 3 days, then take 2 tablets by mouth twice a day for 3 days, then take 1 tablet by mouth twice a day for 3 days, then take 1 tablet by mouth daily x 3 days, then stop. Guaifenesin 100 Mg/5 Ml Liquid 200 Mg PO PRN Q4HRS PRN 30 Days Tylenol (Acetaminophen) 325 Mg Tablet 650 Mg PO PRN Q4HRS PRN 10 Days Ventolin Hfa Inhaler (Albuterol Sulfate) 18 Gm Hfa.aer.ad 2 Puff INH Q4HRS Reglan (Metoclopramide Hcl) 10 Mg Tablet 0.5 Tab PO QID 30 Days Prednisone 20 Mg Tablet 40 Mg PO DAILY Albuterol Sulfate Neb Soln (Albuterol Sulfate) 2.5 Mg/3 Ml Vial.neb 1 Vial NEB PRN Q4HRS Reported Tramadol Hcl 50 Mg Tablet 50 Mg PO Q6HRS PRN Furosemide 40 Mg Tablet 1 Tab PO DAILY Vitamin D3 (Cholecalciferol (Vitamin D3)) 5,000 Unit Tablet 5,000 Unit PO DAILY Potassium Chloride 20 Meq Tablet.er 20 Meq PO DAILY Protonix (Pantoprazole Sodium) 20 Mg Tablet.dr 1 Tab PO DAILY Flonase Allergy Relief (Fluticasone Propionate) 9.9 Ml [place].susp 2 Sprays NS DAILY Atorvastatin Calcium 10 Mg Tablet 10 Mg PO HS Symbicort 160-4.5 Mcg Inhaler (Budesonide/Formoterol Fumarate) 10.2 Gm Hfa.aer.ad 2 Puff IH BID Vitals/I & O Vital Sign - Last 24 Hours 06/20/18 06/20/18 06/20/18 06/20/18 16:40 16:52 16:57 17:27 Temp 98.3 98.3 Pulse 111 122 100 Resp 25 18 B/P (MAP) 141/86 (104) 148/90 (109) 127/89 (102) Pulse Ox 95 100 100 98 O2 Delivery Nasal Cannula Nasal Cannula Room Air Room Air O2 Flow Rate 4.0 5.0 06/20/18 06/20/18 06/20/18 06/20/18 17:57 18:27 20:30 20:41 Pulse 104 104 Resp 25 B/P (MAP) 136/79 (98) 139/82 (101) Pulse Ox 98 96 99 O2 Delivery Room Air Nasal Cannula Nasal Cannula O2 Flow Rate 2.0 3.0 06/20/18 06/20/18 06/21/18 06/21/18 23:11 23:24 00:24 03:00 Temp 98.7 98.6 98.7 98.6 Pulse 121 89 Resp 16 16 16 20 B/P (MAP) 96/57 (70) 133/88 (103) Pulse Ox 96 96 96 100 O2 Delivery Nasal Cannula Nasal Cannula Nasal Cannula O2 Flow Rate 4.0 3.0 3.0 4.0 06/21/18 06/21/18 06/21/18 06/21/18 07:00 07:31 08:00 08:24 Temp 97.9 97.9 Pulse 85 Resp 22 B/P (MAP) 147/87 (107) Pulse Ox 100 100 O2 Delivery Nasal Cannula Nasal Cannula Nasal Cannula Nasal Cannula O2 Flow Rate 4.0 3.0 3.0 06/21/18 06/21/18 09:42 10:50 O2 Delivery Nasal Cannula Nasal Cannula O2 Flow Rate 2.5 Intake and Output 06/20/18 06/20/18 06/21/18 15:00 23:00 07:00 Intake Total 400 ml Output Total 200 ml Balance 200 ml RAI DURANT MD June 21, 2018 11:46
[2018-06-21] MEDS: LIDOCAINE (700MG/PATCH) PATCH. TD SCH (11:57)
[2018-06-21 12:19] VITALS: BP 122/86
[2018-06-21] MEDS: methylPREDNISolone SOD SUCC PF 40 MG/ML VIAL. IV SCH ×2 (14:45→22:38)
[2018-06-21 15:00] VITALS: BP 116/81
--- NOTE | 2018-06-21 16:51 | PDOC ---
PULMONARY PROGRESS NOTES Vitals Vital Signs Date Time Temp Pulse Resp B/P (MAP) Pulse Ox O2 Delivery O2 Flow Rate FiO2 06/21/18 15:45 100 Nasal Cannula 2.5 06/21/18 15:00 98.1 97 20 116/81 (93) 98.1 General: Alert, No acute distress Lungs: Wheezing Cardiovascular: S1, S2 Abdomen: Soft, Non-tender Extremities: No Edema, Other Labs Laboratory Tests Test 06/20/18 16:45 White Blood Count 7.7 x10^3/uL (4.0-11.0) Red Blood Count 3.89 x10^6/uL (4.30-5.70) Hemoglobin 11.7 g/dL (13.0-17.5) Hematocrit 34.7 % (39.0-53.0) Mean Corpuscular Volume 89 fL (79-100) Mean Corpuscular Hemoglobin 30 pg (25-35) Mean Corpuscular Hemoglobin Concent 34 g/dL (31-37) Red Cell Distribution Width 15.9 % (11.5-14.5) Platelet Count 200 x10^3/uL (140-400) Neutrophils (%) (Auto) 90 % (31-73) Lymphocytes (%) (Auto) 3 % (24-48) Monocytes (%) (Auto) 6 % (0-9) Eosinophils (%) (Auto) 0 % (0-3) Basophils (%) (Auto) 0 % (0-3) Neutrophils # (Auto) 7.0 x10^3uL (1.8-7.7) Lymphocytes # (Auto) 0.3 x10^3/uL (1.0-4.8) Monocytes # (Auto) 0.5 x10^3/uL (0.0-1.1) Eosinophils # (Auto) 0.0 x10^3/uL (0.0-0.7) Basophils # (Auto) 0.0 x10^3/uL (0.0-0.2) Segmented Neutrophils % 87 % (35-66) Lymphocytes % 7 % (24-48) Monocytes % 5 % (0-10) Eosinophils % 1 % (0-5) Platelet Estimate Adequate (ADEQUATE) Polychromasia Slight Anisocytosis Slight Schistocytes Few Sodium Level 141 mmol/L (136-145) Potassium Level 3.4 mmol/L (3.5-5.1) Chloride Level 100 mmol/L (98-107) Carbon Dioxide Level 32 mmol/L (21-32) Anion Gap 9 (6-14) Blood Urea Nitrogen 10 mg/dL (8-26) Creatinine 1.0 mg/dL (0.7-1.3) Estimated GFR (Cockcroft-Gault) 92.5 BUN/Creatinine Ratio 10 (6-20) Glucose Level 128 mg/dL (70-99) Calcium Level 8.8 mg/dL (8.5-10.1) Total Bilirubin 0.5 mg/dL (0.2-1.0) Aspartate Amino Transf (AST/SGOT) 22 U/L (15-37) Alanine Aminotransferase (ALT/SGPT) 32 U/L (16-63) Alkaline Phosphatase 99 U/L (46-116) Creatine Kinase 167 U/L (39-308) Creatine Kinase MB (Mass) 2.4 ng/mL (0.0-3.6) Creatine Kinase MB Relative Index 1.4 % (0-4) Troponin I Quantitative < 0.017 ng/mL (0.000-0.055) MS-Ziu-T-Type Natriuretic Peptide 106 pg/mL (0-124) Total Protein 6.4 g/dL (6.4-8.2) Albumin 3.3 g/dL (3.4-5.0) Albumin/Globulin Ratio 1.1 (1.0-1.7) Medications Active Scripts Medications Dose Route/Sig Max Daily Dose Days Date Category Dose Instructions Tramadol Hcl 50 Mg Tablet 50 Mg PO Q6HRS PRN 06/20/18 Reported Furosemide 40 Mg Tablet 1 Tab PO DAILY 06/20/18 Reported Ativan (Lorazepam) 1 Mg Tablet 1 Mg PO BID 06/15/18 Rx Prednisone (Prednisone) 10 Mg Tablet 10 Mg PO UD 06/15/18 Rx Take 3 tablets by mouth twice a day for 3 days, then take 2 tablets by mouth twice a day for 3 days, then take 1 tablet by mouth twice a day for 3 days, then take 1 tablet by mouth daily x 3 days, then stop. Guaifenesin 100 Mg/5 Ml Liquid 200 Mg PO PRN Q4HRS PRN 30 05/30/18 Rx Tylenol (Acetaminophen) 325 Mg Tablet 650 Mg PO PRN Q4HRS PRN 10 05/30/18 Rx Ventolin Hfa Inhaler (Albuterol Sulfate) 18 Gm Hfa.aer.ad 2 Puff INH Q4HRS 05/10/18 Rx Vitamin D3 (Cholecalciferol (Vitamin D3)) 5,000 Unit Tablet 5,000 Unit PO DAILY 03/15/18 Reported Reglan (Metoclopramide Hcl) 10 Mg Tablet 0.5 Tab PO QID 30 02/14/18 Rx Prednisone 20 Mg Tablet 40 Mg PO DAILY 01/31/18 Rx Potassium Chloride 20 Meq Tablet.er 20 Meq PO DAILY 01/13/18 Reported Protonix (Pantoprazole Sodium) 20 Mg Tablet.dr 1 Tab PO DAILY 11/18/17 Reported Flonase Allergy Relief (Fluticasone Propionate) 9.9 Ml [place].susp 2 Sprays NS DAILY 11/18/17 Reported Atorvastatin Calcium 10 Mg Tablet 10 Mg PO HS 08/21/17 Reported Albuterol Sulfate Neb Soln (Albuterol Sulfate) 2.5 Mg/3 Ml Vial.neb 1 Vial NEB PRN Q4HRS 07/10/17 Rx Symbicort 160-4.5 Mcg Inhaler (Budesonide/Formoterol Fumarate) 10.2 Gm Hfa.aer.ad 2 Puff IH BID 09/21/15 Reported Impression . DICTATED AECOPD POSSIBLE PNEUMONIA SCOTT COOK MD June 21, 2018 16:51
[2018-06-21 19:00] VITALS: BP 125/74
[2018-06-21] MEDS ORDERED: ALBUTEROL SULFATE 2.5 MG/3 ML NEBU. NEB SCH (20:00)
[2018-06-21] MEDS: ATORVASTATIN CALCIUM 10 MG TABLET. PO SCH (20:40)
[2018-06-21] MEDS: PATCH REMOVAL. MC SCH (20:40)
[2018-06-21] MEDS: LACTOBACILLUS RHAMNOSUS GG 1 CAPSULE. PO SCH (20:40)
[2018-06-21] MEDS: cefTRIAXone IV Push 1 GM VIAL. IVP SCH (22:38)
[2018-06-21 23:16] VITALS: BP 104/75
[2018-06-22 03:25] VITALS: BP 135/92
[2018-06-22] MEDS: methylPREDNISolone SOD SUCC PF 40 MG/ML VIAL. IV SCH ×3 (05:15→20:38)
[2018-06-22] MEDS: PANTOPRAZOLE 40 MG TABLET.DR. PO SCH (05:19)
[2018-06-22] MEDS: traMADol 50 MG TABLET PO PRN ×3 (05:19→20:37)
[2018-06-22] MEDS: METOCLOPRAMIDE 5 MG TABLET. PO SCH ×4 (05:19→20:38)
--- NOTE | 2018-06-22 06:48 | CONS ---
DATE OF CONSULTATION: 06/21/2018 ATTENDING PHYSICIAN: Dar Hathaway D.O. CONSULTING PHYSICIAN: Scott Cook M.D. HISTORY OF PRESENT ILLNESS: The patient is a 58-year-old, well known to me from previous hospitalization, underlying COPD with significant bullous emphysema. He has actually been evaluated in the past for bullectomy but he was not a candidate. Apparently, he is on track for possible lung transplant in [place]. The patient presented with increasing shortness of breath, cough, mostly nonproductive. No fever or chills. He is having evidence of reflux. He continues to drink carbonated beverages despite our efforts to encourage water intake. X-ray was reviewed. There is no acute cardiopulmonary process. X-ray was reviewed. There is bilateral basilar pleural parenchymal scarring and interstitial infiltrates. The patient was unable to tolerate activities of daily living. He was severely short of breath, unable to breathe get any relief with his bronchodilators and as a consequence, he was admitted. PAST MEDICAL HISTORY: Otherwise remarkable for severe COPD of the emphysematous. He has also had some bullous changes, severe esophagitis, chronic reflux, chronic respiratory failure and hypertension. ALLERGIES: To TYLENOL and ACETAMINOPHEN. MEDICATIONS: List was reviewed. SOCIAL HISTORY: Socially, he quit tobacco in 2013. FAMILY HISTORY: Hypertension. REVIEW OF SYSTEMS: As indicated above, otherwise, a 10-point system was reviewed and negative. CONSTITUTIONAL: No fever or chills. EYES: No change in visual acuity. PULMONARY: As indicated above. CARDIOVASCULAR: No chest pain. No pressure. GASTROINTESTINAL: No nausea, vomiting or diarrhea. GENITOURINARY: No dysuria or frequency. MUSCULOSKELETAL: No localized muscle aches or joint pains. SKIN: No new skin rashes. NEUROLOGICAL: No headaches, diplopia or blurred vision. PHYSICAL EXAMINATION: GENERAL: The patient was in no respiratory distress. VITAL SIGNS: Stable. O2 saturation currently on 2.5 liters was 92%. HEENT: Eyes, the sclerae were nonicteric. NECK: Jugular venous distention was not elevated. No lymphadenopathy. CHEST: Full expansion. LUNGS: Poor airway flow with no wheezes. CARDIOVASCULAR: Regular rate and rhythm with S1 and S2. No S3. ABDOMEN: Soft, nontender and nondistended. EXTREMITIES: No clubbing, cyanosis or edema. RADIOLOGICAL DATA: Chest x-ray revealed possible new infiltrate. LABORATORY DATA: White count was normal. Hemoglobin and hematocrit were noted. Electrolytes were noted. Potassium was low. Albumin was slightly low. IMPRESSION: 1. [id number] respiratory failure. 2. Acute exacerbation of chronic obstructive pulmonary disease. 3. Severe bullous emphysema, FEV1 less than 1 liter, last time checked of 350 mL. 4. Tobacco dependence, in remission. 5. Severe esophagitis. 6. Gastroesophageal reflux. PLAN: The patient failed outpatient therapy has been seen in the Emergency Room on 2 separate occasions prior to this admission, he was struggling to maintain his saturations. He was unable to complete full sentence upon arrival to the Emergency Room. He will continue current steroids, antibiotics and nebulized treatments. He is also on the waiting list for lung transplant. I do appreciate the privilege in sharing in the patient's care. SCOTT COOK MD DR: MAVERICK/efrain JOB#: [id number] / [id number]
[2018-06-22 07:00] VITALS: BP 137/82
[2018-06-22] MEDS: IPRATRPIUM/ALBUTEROL 0.5/2.5MG 3 ML NEBU. NEB SCH ×4 (08:12→19:54)
[2018-06-22] MEDS: BUDESONIDE 0.5 MG/2 ML NEBU. NEB SCH ×2 (08:12→19:54)
[2018-06-22] MEDS: LORazepam 1 MG TABLET PO SCH ×2 (08:29→20:38)
[2018-06-22] MEDS: POTASSIUM CHLORIDE 20 MEQ TABLET.ER. PO SCH (08:29)
[2018-06-22] MEDS: CHOLECALCIFEROL (VITAMIN D3) 5,000 UNIT CAPSULE PO SCH (08:29)
[2018-06-22] MEDS: LACTOBACILLUS RHAMNOSUS GG 1 CAPSULE. PO SCH ×2 (08:29→20:38)
[2018-06-22] MEDS: FUROSEMIDE 40 MG TABLET. PO SCH (08:29)
[2018-06-22] MEDS: LIDOCAINE (700MG/PATCH) PATCH. TD SCH (08:31)
[2018-06-22] MEDS: FLUTICASONE 50MCG/NASAL SPRAY 16GM BOTTLE. NS SCH (09:00)
[2018-06-22 11:00] VITALS: BP 121/78
--- NOTE | 2018-06-22 11:17 | PDOC ---
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 The Ejection Fraction is >55%. There is normal LV segmental wall motion. The right ventricle is moderately dilated. The right ventricular systolic function is normal. PLAN: cont COPD treatment LAsix 20 IV x 1 for leg swelling Overall prognosis is poor Technically could be a hospice candidate with active medical treatment but I don't think he is there yet in mind Back pain-Lidoderm patch - helping some Add some PTOT today Vitals Vitals Vital Signs Date Time Temp Pulse Resp B/P (MAP) Pulse Ox O2 Delivery O2 Flow Rate FiO2 06/22/18 08:15 100 Nasal Cannula 3.0 06/22/18 07:00 98.3 86 18 137/82 (100) 98.3 Physical Exam General: Alert, Oriented X3, Cooperative, mild distress Heart: Regular rate, Normal S1, Normal S2, Other (sinus tachycardia) Lungs: Wheezing Abdomen: Normal bowel sounds, Soft Extremities: No clubbing, No cyanosis Skin: Other (onychomycosis both feet) Review of Systems Review of Systems Back pain, SOA, fatigue, weak, the rest of ROS 14 point negative Assessment and Plan Assessmemt and Plan Problems Medical Problems: (1) COPD with exacerbation Status: Acute Comment Review of Relevant I have reviewed the following items franki (where applicable) has been applied. Labs Laboratory Tests Test 06/20/18 16:45 White Blood Count 7.7 x10^3/uL (4.0-11.0) Red Blood Count 3.89 x10^6/uL (4.30-5.70) Hemoglobin 11.7 g/dL (13.0-17.5) Hematocrit 34.7 % (39.0-53.0) Mean Corpuscular Volume 89 fL (79-100) Mean Corpuscular Hemoglobin 30 pg (25-35) Mean Corpuscular Hemoglobin Concent 34 g/dL (31-37) Red Cell Distribution Width 15.9 % (11.5-14.5) Platelet Count 200 x10^3/uL (140-400) Neutrophils (%) (Auto) 90 % (31-73) Lymphocytes (%) (Auto) 3 % (24-48) Monocytes (%) (Auto) 6 % (0-9) Eosinophils (%) (Auto) 0 % (0-3) Basophils (%) (Auto) 0 % (0-3) Neutrophils # (Auto) 7.0 x10^3uL (1.8-7.7) Lymphocytes # (Auto) 0.3 x10^3/uL (1.0-4.8) Monocytes # (Auto) 0.5 x10^3/uL (0.0-1.1) Eosinophils # (Auto) 0.0 x10^3/uL (0.0-0.7) Basophils # (Auto) 0.0 x10^3/uL (0.0-0.2) Segmented Neutrophils % 87 % (35-66) Lymphocytes % 7 % (24-48) Monocytes % 5 % (0-10) Eosinophils % 1 % (0-5) Platelet Estimate Adequate (ADEQUATE) Polychromasia Slight Anisocytosis Slight Schistocytes Few Sodium Level 141 mmol/L (136-145) Potassium Level 3.4 mmol/L (3.5-5.1) Chloride Level 100 mmol/L (98-107) Carbon Dioxide Level 32 mmol/L (21-32) Anion Gap 9 (6-14) Blood Urea Nitrogen 10 mg/dL (8-26) Creatinine 1.0 mg/dL (0.7-1.3) Estimated GFR (Cockcroft-Gault) 92.5 BUN/Creatinine Ratio 10 (6-20) Glucose Level 128 mg/dL (70-99) Calcium Level 8.8 mg/dL (8.5-10.1) Total Bilirubin 0.5 mg/dL (0.2-1.0) Aspartate Amino Transf (AST/SGOT) 22 U/L (15-37) Alanine Aminotransferase (ALT/SGPT) 32 U/L (16-63) Alkaline Phosphatase 99 U/L (46-116) Creatine Kinase 167 U/L (39-308) Creatine Kinase MB (Mass) 2.4 ng/mL (0.0-3.6) Creatine Kinase MB Relative Index 1.4 % (0-4) Troponin I Quantitative < 0.017 ng/mL (0.000-0.055) RN-Mad-S-Type Natriuretic Peptide 106 pg/mL (0-124) Total Protein 6.4 g/dL (6.4-8.2) Albumin 3.3 g/dL (3.4-5.0) Albumin/Globulin Ratio 1.1 (1.0-1.7) Medications Current Medications Methylprednisolone Sodium Succinate (SOLU-Medrol 125MG VIAL) 125 mg 1X ONCE IV Last administered on 06/20/18 17:35; Start 06/20/18 at 16:30; Stop 06/20/18 at 16:31; Status DC Albuterol/ Ipratropium (Duoneb) 3 ml 1X ONCE NEB Last administered on 06/20/18 16:52; Start 06/20/18 at 16:30; Stop 06/20/18 at 16:31; Status DC Albuterol/ Ipratropium (Duoneb) 3 ml RTQID NEB Last administered on 06/20/18 20:38; Start 06/20/18 at 20:00; Stop 06/20/18 at 22:33; Status DC Atorvastatin Calcium (Lipitor) 10 mg HS PO Last administered on 06/21/18 20:40; Start 06/21/18 at 00:00 Furosemide (Lasix) 40 mg DAILY PO Last administered on 06/22/18 08:29; Start 06/21/18 at 09:00 Guaifenesin (Robitussin) 200 mg PRN Q4HRS PRN PO COUGH 1ST CHOICE Last administered on 06/20/18 22:59; Start 06/20/18 at 22:30 Lorazepam (Ativan) 1 mg BID PO Last administered on 06/22/18 08:29; Start 06/21/18 at 00:00 Metoclopramide HCl (Reglan) 5 mg QIDACHS PO Last administered on 06/22/18 0 5:19; Start 06/21/18 at 07:30 Prednisone (Prednisone) 40 mg DAILY PO Last administered on 06/21/18 08:24; Start 06/21/18 at 09:00; Stop 06/21/18 at 11:48; Status DC Albuterol Sulfate (Ventolin Neb Soln) 2.5 mg PRN Q4HRS PRN NEB SHORTNESS OF BREATH Last administered on 06/22/18 04:29; Start 06/20/18 at 22:30 Budesonide (Pulmicort) 0.5 mg RTBID NEB Last administered on 06/22/18 08:12; Start 06/21/18 at 08:00 Vitamin D (Vitamin D3) 5,000 unit DAILY PO Last administered on 06/22/18 08:29; Start 06/21/18 at 09:00 Fluticasone Propionate (Flonase) 2 spray DAILY NS Last administered on 06/22/18 09:00; Start 06/21/18 at 09:00 Pantoprazole Sodium (Protonix) 40 mg DAILYAC PO Last administered on 06/22/18 05:19; Start 06/21/18 at 07:30 Potassium Chloride (Klor-Con) 20 meq DAILYWBKFT PO Last administered on 06/22/18 08:29; Start 06/21/18 at 08:00 Ceftriaxone Sodium (Rocephin) 1 gm Q24H IVP Last administered on 06/21/18 22:38; Start 06/20/18 at 23:00 Methylprednisolone Sodium Succinate (SOLU-Medrol 40MG VIAL) 60 mg Q8HRS IV Last administered on 06/21/18 05:06; Start 06/21/18 at 06:00; Stop 06/21/18 at 11:48; Status DC Albuterol/ Ipratropium (Duoneb) 3 ml RTQID NEB Last administered on 06/22/18 08:12; Start 06/21/18 at 08:00 Albuterol Sulfate (Ventolin Neb Soln) 2.5 mg RTQID NEB ; Start 06/21/18 at 20:00; Status Cancel Tramadol HCl (Ultram) 50 mg PRN Q6HRS PRN PO MODERATE PAIN Last administered on 06/22/18 05:19; Start 06/20/18 at 23:15 Potassium Chloride (Klor-Con) 40 meq 1X ONCE PO Last administered on 06/21/18 09:15; Start 06/21/18 at 09:15; Stop 06/21/18 at 09:18; Status DC Methylprednisolone Sodium Succinate (SOLU-Medrol 40MG VIAL) 40 mg Q8HRS IV Last administered on 06/22/18at 05:15; Start 06/21/18 at 14:00 Lidocaine (Lidoderm) 1 patch DAILY TD Last administered on 06/22/18at 08:31; Start 06/21/18 at 11:45 Miscellaneous (Lidoderm Patch Removal) 1 ea QHS MC ; Start 06/21/18 at 21:00 Lactobacillus Rhamnosus (Culturelle) 1 cap BID PO Last administered on 06/22/18at 08:29; Start 06/21/18 at 21:00 Active Scripts Active Ativan (Lorazepam) 1 Mg Tablet 1 Mg PO BID Prednisone (Prednisone) 10 Mg Tablet 10 Mg PO UD Take 3 tablets by mouth twice a day for 3 days, then take 2 tablets by mouth twice a day for 3 days, then take 1 tablet by mouth twice a day for 3 days, then take 1 tablet by mouth daily x 3 days, then stop. Guaifenesin 100 Mg/5 Ml Liquid 200 Mg PO PRN Q4HRS PRN 30 Days Tylenol (Acetaminophen) 325 Mg Tablet 650 Mg PO PRN Q4HRS PRN 10 Days Ventolin Hfa Inhaler (Albuterol Sulfate) 18 Gm Hfa.aer.ad 2 Puff INH Q4HRS Reglan (Metoclopramide Hcl) 10 Mg Tablet 0.5 Tab PO QID 30 Days Prednisone 20 Mg Tablet 40 Mg PO DAILY Albuterol Sulfate Neb Soln (Albuterol Sulfate) 2.5 Mg/3 Ml Vial.neb 1 Vial NEB PRN Q4HRS Reported Tramadol Hcl 50 Mg Tablet 50 Mg PO Q6HRS PRN Furosemide 40 Mg Tablet 1 Tab PO DAILY Vitamin D3 (Cholecalciferol (Vitamin D3)) 5,000 Unit Tablet 5,000 Unit PO DAILY Potassium Chloride 20 Meq Tablet.er 20 Meq PO DAILY Protonix (Pantoprazole Sodium) 20 Mg Tablet.dr 1 Tab PO DAILY Flonase Allergy Relief (Fluticasone Propionate) 9.9 Ml [place].susp 2 Sprays NS DAILY Atorvastatin Calcium 10 Mg Tablet 10 Mg PO HS Symbicort 160-4.5 Mcg Inhaler (Budesonide/Formoterol Fumarate) 10.2 Gm Hfa.aer.ad 2 Puff IH BID Vitals/I & O Vital Sign - Last 24 Hours 06/21/18 06/21/18 06/21/18 06/21/18 12:19 15:00 15:45 19:00 Temp 98.2 98.1 98.4 98.2 98.1 98.4 Pulse 94 97 97 Resp 22 20 20 B/P (MAP) 122/86 (98) 116/81 (93) 125/74 (91) Pulse Ox 95 98 100 98 O2 Delivery Nasal Cannula Nasal Cannula Nasal Cannula Nasal Cannula O2 Flow Rate 4.0 3.0 2.5 3.0 06/21/18 06/21/18 06/21/18 06/21/18 19:16 20:01 20:05 20:16 Resp 18 18 Pulse Ox 100 100 100 O2 Delivery Nasal Cannula Nasal Cannula Nasal Cannula Nasal Cannula O2 Flow Rate 2.5 2.5 3.0 2.5 06/21/18 06/22/18 06/22/18 06/22/18 23:16 03:25 04:30 05:19 Temp 97.8 97.9 97.8 97.9 Pulse 121 80 Resp 20 16 16 B/P (MAP) 104/75 (85) 135/92 (106) Pulse Ox 96 98 98 98 O2 Delivery Nasal Cannula Nasal Cannula Nasal Cannula Nasal Cannula O2 Flow Rate 3.0 3.0 3.0 3.0 06/22/18 06/22/18 06/22/18 07:00 08:13 08:15 Temp 98.3 98.3 Pulse 86 Resp 18 B/P (MAP) 137/82 (100) Pulse Ox 97 100 100 O2 Delivery Nasal Cannula Nasal Cannula Nasal Cannula O2 Flow Rate 3.0 3.0 3.0 Intake and Output 06/21/18 06/21/18 06/22/18 15:00 23:00 07:00 Intake Total 480 ml 840 ml Output Total 800 ml 1000 ml 200 ml Balance -320 ml -160 ml -200 ml RAI DURANT MD June 22, 2018 11:17
[2018-06-22] MEDS ORDERED: DEXTROSE 50% 25 GM / 50ML DISP.SYRIN. IV PRN (11:30)
[2018-06-22] MEDS ORDERED: FUROSEMIDE 20 MG/2 ML VIAL. IVP ONE (12:00)
[2018-06-22] MEDS: INSULIN LISPRO 300 UNITS/3 ML INSULN.PEN. SQ SCH ×2 (12:00→17:00)
--- NOTE | 2018-06-22 14:02 | PDOC ---
PULMONARY PROGRESS NOTES Subjective PT STILL SOA UNABLE TO WALK IN ROOM WITHOUT DYSPNEA "LUNG BURN" Vitals Vital Signs Date Time Temp Pulse Resp B/P (MAP) Pulse Ox O2 Delivery O2 Flow Rate FiO2 06/22/18 11:34 98 Nasal Cannula 3.0 06/22/18 11:00 98.1 105 18 121/78 (92) 98.1 ROS: No Nausea, No Abdominal Pain General: Alert, No acute distress Lungs: Wheezing, Other (VERY POOR AIRFLOW) Cardiovascular: S1, S2 Abdomen: Soft, Non-tender Extremities: No Edema, Other Labs Laboratory Tests Test 06/20/18 16:45 06/22/18 10:06 White Blood Count 7.7 x10^3/uL (4.0-11.0) Red Blood Count 3.89 x10^6/uL (4.30-5.70) Hemoglobin 11.7 g/dL (13.0-17.5) Hematocrit 34.7 % (39.0-53.0) Mean Corpuscular Volume 89 fL (79-100) Mean Corpuscular Hemoglobin 30 pg (25-35) Mean Corpuscular Hemoglobin Concent 34 g/dL (31-37) Red Cell Distribution Width 15.9 % (11.5-14.5) Platelet Count 200 x10^3/uL (140-400) Neutrophils (%) (Auto) 90 % (31-73) Lymphocytes (%) (Auto) 3 % (24-48) Monocytes (%) (Auto) 6 % (0-9) Eosinophils (%) (Auto) 0 % (0-3) Basophils (%) (Auto) 0 % (0-3) Neutrophils # (Auto) 7.0 x10^3uL (1.8-7.7) Lymphocytes # (Auto) 0.3 x10^3/uL (1.0-4.8) Monocytes # (Auto) 0.5 x10^3/uL (0.0-1.1) Eosinophils # (Auto) 0.0 x10^3/uL (0.0-0.7) Basophils # (Auto) 0.0 x10^3/uL (0.0-0.2) Segmented Neutrophils % 87 % (35-66) Lymphocytes % 7 % (24-48) Monocytes % 5 % (0-10) Eosinophils % 1 % (0-5) Platelet Estimate Adequate (ADEQUATE) Polychromasia Slight Anisocytosis Slight Schistocytes Few Sodium Level 141 mmol/L (136-145) Potassium Level 3.4 mmol/L (3.5-5.1) Chloride Level 100 mmol/L (98-107) Carbon Dioxide Level 32 mmol/L (21-32) Anion Gap 9 (6-14) Blood Urea Nitrogen 10 mg/dL (8-26) Creatinine 1.0 mg/dL (0.7-1.3) Estimated GFR (Cockcroft-Gault) 92.5 BUN/Creatinine Ratio 10 (6-20) Glucose Level 128 mg/dL (70-99) Calcium Level 8.8 mg/dL (8.5-10.1) Total Bilirubin 0.5 mg/dL (0.2-1.0) Aspartate Amino Transf (AST/SGOT) 22 U/L (15-37) Alanine Aminotransferase (ALT/SGPT) 32 U/L (16-63) Alkaline Phosphatase 99 U/L (46-116) Creatine Kinase 167 U/L (39-308) Creatine Kinase MB (Mass) 2.4 ng/mL (0.0-3.6) Creatine Kinase MB Relative Index 1.4 % (0-4) Troponin I Quantitative < 0.017 ng/mL (0.000-0.055) JF-Lva-B-Type Natriuretic Peptide 106 pg/mL (0-124) Total Protein 6.4 g/dL (6.4-8.2) Albumin 3.3 g/dL (3.4-5.0) Albumin/Globulin Ratio 1.1 (1.0-1.7) Glucose (Fingerstick) 282 mg/dL (70-99) Laboratory Tests Test 06/22/18 10:06 Glucose (Fingerstick) 282 mg/dL (70-99) Medications Active Scripts Medications Dose Route/Sig Max Daily Dose Days Date Category Dose Instructions Tramadol Hcl 50 Mg Tablet 50 Mg PO Q6HRS PRN 06/20/18 Reported Furosemide 40 Mg Tablet 1 Tab PO DAILY 06/20/18 Reported Ativan (Lorazepam) 1 Mg Tablet 1 Mg PO BID 06/15/18 Rx Prednisone (Prednisone) 10 Mg Tablet 10 Mg PO UD 06/15/18 Rx Take 3 tablets by mouth twice a day for 3 days, then take 2 tablets by mouth twice a day for 3 days, then take 1 tablet by mouth twice a day for 3 days, then take 1 tablet by mouth daily x 3 days, then stop. Guaifenesin 100 Mg/5 Ml Liquid 200 Mg PO PRN Q4HRS PRN 30 05/30/18 Rx Tylenol (Acetaminophen) 325 Mg Tablet 650 Mg PO PRN Q4HRS PRN 10 05/30/18 Rx Ventolin Hfa Inhaler (Albuterol Sulfate) 18 Gm Hfa.aer.ad 2 Puff INH Q4HRS 05/10/18 Rx Vitamin D3 (Cholecalciferol (Vitamin D3)) 5,000 Unit Tablet 5,000 Unit PO DAILY 03/15/18 Reported Reglan (Metoclopramide Hcl) 10 Mg Tablet 0.5 Tab PO QID 30 02/14/18 Rx Prednisone 20 Mg Tablet 40 Mg PO DAILY 01/31/18 Rx Potassium Chloride 20 Meq Tablet.er 20 Meq PO DAILY 01/13/18 Reported Protonix (Pantoprazole Sodium) 20 Mg Tablet.dr 1 Tab PO DAILY 11/18/17 Reported Flonase Allergy Relief (Fluticasone Propionate) 9.9 Ml [place].susp 2 Sprays NS DAILY 11/18/17 Reported Atorvastatin Calcium 10 Mg Tablet 10 Mg PO HS 08/21/17 Reported Albuterol Sulfate Neb Soln (Albuterol Sulfate) 2.5 Mg/3 Ml Vial.neb 1 Vial NEB PRN Q4HRS 07/10/17 Rx Symbicort 160-4.5 Mcg Inhaler (Budesonide/Formoterol Fumarate) 10.2 Gm Hfa.aer.ad 2 Puff IH BID 09/21/15 Reported Impression . IMPRESSION: 1. Owfyn-kv-[id number] respiratory failure. 2. Acute exacerbation of chronic obstructive pulmonary disease. 3. Severe bullous emphysema, FEV1 less than 1 liter, last time checked of 350 mL. 4. Tobacco dependence, in remission. 5. Severe esophagitis. 6. Gastroesophageal reflux. Plan . 06/22 DIFFICULT SITUATION PT GET READMITTED EVERY MONTH HAS BEEN IN ER ON MULTIPLE ADMISSION FAILED OUT PT TREATMENT LUNGS BURNING WHEN HE BREATHS, REVIEWED LIFESTYLE MODIFICATION TO PREVENT GERD HE DOES SUFFER FROM ESOPHAGITIS COMPLEX DECISION MAKING FRUSTRATING FOR PHYSICIAN AND PATIENT WILL CHECK COVERAGE FOR HOME BIPAP 06/21 PLAN: The patient failed outpatient therapy has been seen in the Emergency Room on 2 separate occasions prior to this admission, he was struggling to maintain his saturations. He was unable to complete full sentence upon arrival to the Emergency Room. He will continue current steroids, antibiotics and nebulized treatments. He is also on the waiting list for lung transplant. SCOTT COOK MD June 22, 2018 14:02
[2018-06-22 14:33] VITALS: BP 115/75
[2018-06-22 19:00] VITALS: BP 114/66
[2018-06-22] MEDS: ATORVASTATIN CALCIUM 10 MG TABLET. PO SCH (20:38)
[2018-06-22] MEDS: PATCH REMOVAL. MC SCH (21:00)
[2018-06-22 23:25] VITALS: BP 138/89
[2018-06-23] MEDS: cefTRIAXone IV Push 1 GM VIAL. IVP SCH ×2 (00:21→23:51)
[2018-06-23 03:41] VITALS: BP 135/96
[2018-06-23] MEDS: methylPREDNISolone SOD SUCC PF 40 MG/ML VIAL. IV SCH ×3 (06:00→21:19)
[2018-06-23] MEDS: IPRATRPIUM/ALBUTEROL 0.5/2.5MG 3 ML NEBU. NEB SCH ×4 (07:27→19:32)
[2018-06-23] MEDS: BUDESONIDE 0.5 MG/2 ML NEBU. NEB SCH ×2 (07:28→19:32)
[2018-06-23] MEDS: PANTOPRAZOLE 40 MG TABLET.DR. PO SCH (07:30)
[2018-06-23 07:57] VITALS: BP_SYST 138; BP_SYST 164; BP_DIAS 109; BP_DIAS 84
[2018-06-23] MEDS: INSULIN LISPRO 300 UNITS/3 ML INSULN.PEN. SQ SCH ×3 (08:00→17:14)
[2018-06-23] MEDS: FLUTICASONE 50MCG/NASAL SPRAY 16GM BOTTLE. NS SCH (09:21)
[2018-06-23] MEDS: FUROSEMIDE 40 MG TABLET. PO SCH (09:22)
[2018-06-23] MEDS: CHOLECALCIFEROL (VITAMIN D3) 5,000 UNIT CAPSULE PO SCH (09:22)
[2018-06-23] MEDS: LACTOBACILLUS RHAMNOSUS GG 1 CAPSULE. PO SCH ×2 (09:22→21:19)
[2018-06-23] MEDS: METOCLOPRAMIDE 5 MG TABLET. PO SCH ×4 (09:22→21:19)
[2018-06-23] MEDS: LORazepam 1 MG TABLET PO SCH ×2 (09:22→21:19)
[2018-06-23] MEDS: POTASSIUM CHLORIDE 20 MEQ TABLET.ER. PO SCH (09:22)
[2018-06-23] MEDS: LIDOCAINE (700MG/PATCH) PATCH. TD SCH (09:25)
--- NOTE | 2018-06-23 11:35 | PDOC ---
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 Chronic steroid use Weight loss Insomnia, mood swings in the background of chronic steroid use Hx diastolic heart failure HTN on meds, dyslipidemia on statin Ex smoker hypokalemia Back pain History of Present Illness History of Present Illness About the same, SOA short distances, some leg swelling Very dry legs/skin End-stage COPD frequent hospitalizations Known severe emphysema with left upper lobe bullae I did introduce hospice-apparently somebody before has also introduced hospice- he is thinking about it but he seems not ready based on his body language to me this morning echo: 05/2018: <Conclusion> The left ventricular systolic function is normal and the ejection fraction is within normal range. The Ejection Fraction is >55%. There is normal LV segmental wall motion. The right ventricle is moderately dilated. The right ventricular systolic function is normal. PLAN: cont COPD treatment s/p lasix 20 IV x 1 sunday Add eucerin lotion Overall prognosis is poor Technically could be a hospice candidate with active medical treatment but I don't think he is there yet in mind Back pain-Lidoderm patch - helping some cont pT OT Vitals Vitals Vital Signs Date Time Temp Pulse Resp B/P (MAP) Pulse Ox O2 Delivery O2 Flow Rate FiO2 06/23/18 08:00 Nasal Cannula 3.0 06/23/18 07:57 98.1 90 16 138/84 (102) 98 98.1 Physical Exam General: Alert, Oriented X3, Cooperative, mild distress Heart: Regular rate, Normal S1, Normal S2, Other (sinus tachycardia) Lungs: Wheezing, Other (VERY POOR AIRFLOW) Abdomen: Normal bowel sounds, Soft Extremities: No clubbing, No cyanosis Skin: Other (onychomycosis both feet) Labs LABS Laboratory Tests Test 06/22/18 16:24 06/22/18 19:07 06/23/18 07:08 Glucose (Fingerstick) 114 mg/dL (70-99) 263 mg/dL (70-99) 150 mg/dL (70-99) Review of Systems Review of Systems SOA, fatigue, no chest pain, fair appetite, the rest of ROS 14 point negative Assessment and Plan Assessmemt and Plan Problems Medical Problems: (1) COPD with exacerbation Status: Acute Comment Review of Relevant I have reviewed the following items franki (where applicable) has been applied. Labs Laboratory Tests Test 06/22/18 10:06 06/22/18 16:24 06/22/18 19:07 06/23/18 07:08 Glucose (Fingerstick) 282 mg/dL (70-99) 114 mg/dL (70-99) 263 mg/dL (70-99) 150 mg/dL (70-99) Laboratory Tests Test 06/22/18 16:24 06/22/18 19:07 06/23/18 07:08 Glucose (Fingerstick) 114 mg/dL (70-99) 263 mg/dL (70-99) 150 mg/dL (70-99) Medications Current Medications Methylprednisolone Sodium Succinate (SOLU-Medrol 125MG VIAL) 125 mg 1X ONCE IV Last administered on 06/20/18 17:35; Start 06/20/18 at 16:30; Stop 06/20/18 at 16:31; Status DC Albuterol/ Ipratropium (Duoneb) 3 ml 1X ONCE NEB Last administered on 06/20/18at 16:52; Start 06/20/18 at 16:30; Stop 06/20/18 at 16:31; Status DC Albuterol/ Ipratropium (Duoneb) 3 ml RTQID NEB Last administered on 06/20/18 20:38; Start 06/20/18 at 20:00; Stop 06/20/18 at 22:33; Status DC Atorvastatin Calcium (Lipitor) 10 mg HS PO Last administered on 06/22/18at 20:38; Start 06/21/18 at 00:00 Furosemide (Lasix) 40 mg DAILY PO Last administered on 06/23/18 09:22; Start 06/21/18 at 09:00 Guaifenesin (Robitussin) 200 mg PRN Q4HRS PRN PO COUGH 1ST CHOICE Last administered on 06/20/18 22:59; Start 06/20/18 at 22:30 Lorazepam (Ativan) 1 mg BID PO Last administered on 06/23/18 09:22; Start 06/21/18 at 00:00 Metoclopramide HCl (Reglan) 5 mg QIDACHS PO Last administered on 06/23/18at 09:22; Start 06/21/18 at 07:30 Prednisone (Prednisone) 40 mg DAILY PO Last administered on 06/21/18 08:24; Start 06/21/18 at 09:00; Stop 06/21/18 at 11:48; Status DC Albuterol Sulfate (Ventolin Neb Soln) 2.5 mg PRN Q4HRS PRN NEB SHORTNESS OF BREATH Last administered on 06/22/18 04:29; Start 06/20/18 at 22:30 Budesonide (Pulmicort) 0.5 mg RTBID NEB Last administered on 06/23/18 07:28; Start 06/21/18 at 08:00 Vitamin D (Vitamin D3) 5,000 unit DAILY PO Last administered on 06/23/18 09:22; Start 06/21/18 at 09:00 Fluticasone Propionate (Flonase) 2 spray DAILY NS Last administered on 06/23/18 09:21; Start 06/21/18 at 09:00 Pantoprazole Sodium (Protonix) 40 mg DAILYAC PO Last administered on 06/23/18 07:30; Start 06/21/18 at 07:30 Potassium Chloride (Klor-Con) 20 meq DAILYWBKFT PO Last administered on 06/23/18 09:22; Start 06/21/18 at 08:00 Ceftriaxone Sodium (Rocephin) 1 gm Q24H IVP Last administered on 06/23/18 00:21; Start 06/20/18 at 23:00 Methylprednisolone Sodium Succinate (SOLU-Medrol 40MG VIAL) 60 mg Q8HRS IV Last administered on 06/21/18 05:06; Start 06/21/18 at 06:00; Stop 06/21/18 at 11: 48; Status DC Albuterol/ Ipratropium (Duoneb) 3 ml RTQID NEB Last administered on 06/23/18 11:11; Start 06/21/18 at 08:00 Albuterol Sulfate (Ventolin Neb Soln) 2.5 mg RTQID NEB ; Start 06/21/18 at 20:00; Status Cancel Tramadol HCl (Ultram) 50 mg PRN Q6HRS PRN PO MODERATE PAIN Last administered on 06/22/18at 20:37; Start 06/20/18 at 23:15 Potassium Chloride (Klor-Con) 40 meq 1X ONCE PO Last administered on 06/21/18at 09:15; Start 06/21/18 at 09:15; Stop 06/21/18 at 09:18; Status DC Methylprednisolone Sodium Succinate (SOLU-Medrol 40MG VIAL) 40 mg Q8HRS IV Last administered on 06/23/18at 06:00; Start 06/21/18 at 14:00 Lidocaine (Lidoderm) 1 patch DAILY TD Last administered on 06/23/18at 09:25; Start 06/21/18 at 11:45 Miscellaneous (Lidoderm Patch Removal) 1 ea QHS MC ; Start 06/21/18 at 21:00 Lactobacillus Rhamnosus (Culturelle) 1 cap BID PO Last administered on 06/23/18at 09:22; Start 06/21/18 at 21:00 Furosemide (Lasix) 20 mg 1X ONCE IVP Last administered on 06/22/18at 12:00; Start 06/22/18 at 12:00; Stop 06/22/18 at 12:01; Status DC Insulin Human Lispro (HumaLOG) 0-9 UNITS TIDWMEALS SQ Last administered on 06/22/18at 12:00; Start 06/22/18 at 12:00 Dextrose (Dextrose 50%-Water Syringe) 12.5 gm PRN Q15MIN PRN IV SEE COMMENTS; Start 06/22/18 at 11:30 Active Scripts Active Ativan (Lorazepam) 1 Mg Tablet 1 Mg PO BID Prednisone (Prednisone) 10 Mg Tablet 10 Mg PO UD Take 3 tablets by mouth twice a day for 3 days, then take 2 tablets by mouth twice a day for 3 days, then take 1 tablet by mouth twice a day for 3 days, then take 1 tablet by mouth daily x 3 days, then stop. Guaifenesin 100 Mg/5 Ml Liquid 200 Mg PO PRN Q4HRS PRN 30 Days Tylenol (Acetaminophen) 325 Mg Tablet 650 Mg PO PRN Q4HRS PRN 10 Days Ventolin Hfa Inhaler (Albuterol Sulfate) 18 Gm Hfa.aer.ad 2 Puff INH Q4HRS Reglan (Metoclopramide Hcl) 10 Mg Tablet 0.5 Tab PO QID 30 Days Prednisone 20 Mg Tablet 40 Mg PO DAILY Albuterol Sulfate Neb Soln (Albuterol Sulfate) 2.5 Mg/3 Ml Vial.neb 1 Vial NEB PRN Q4HRS Reported Tramadol Hcl 50 Mg Tablet 50 Mg PO Q6HRS PRN Furosemide 40 Mg Tablet 1 Tab PO DAILY Vitamin D3 (Cholecalciferol (Vitamin D3)) 5,000 Unit Tablet 5,000 Unit PO DAILY Potassium Chloride 20 Meq Tablet.er 20 Meq PO DAILY Protonix (Pantoprazole Sodium) 20 Mg Tablet.dr 1 Tab PO DAILY Flonase Allergy Relief (Fluticasone Propionate) 9.9 Ml [place].susp 2 Sprays NS DAILY Atorvastatin Calcium 10 Mg Tablet 10 Mg PO HS Symbicort 160-4.5 Mcg Inhaler (Budesonide/Formoterol Fumarate) 10.2 Gm Hfa.aer.ad 2 Puff IH BID Vitals/I & O Vital Sign - Last 24 Hours 06/22/18 06/22/18 06/22/18 06/22/18 13:54 13:58 14:33 16:56 Temp 98.7 98.7 Pulse 100 Resp 18 B/P (MAP) 115/75 (88) Pulse Ox 99 98 99 99 O2 Delivery Nasal Cannula Nasal Cannula Nasal Cannula Nasal Cannula O2 Flow Rate 3.0 3.0 3.0 3.0 06/22/18 06/22/18 06/22/18 06/22/18 19:00 19:54 20:00 20:37 Temp 98.1 98.1 Pulse 96 Resp 16 B/P (MAP) 114/66 (82) Pulse Ox 97 99 O2 Delivery Nasal Cannula Nasal Cannula Nasal Cannula Nasal Cannula O2 Flow Rate 3.0 3.0 3.0 06/22/18 06/22/18 06/23/18 06/23/18 21:37 23:25 03:41 07:28 Temp 97.5 97.8 97.5 97.8 Pulse 98 74 Resp 16 12 B/P (MAP) 138/89 (105) 135/96 (109) Pulse Ox 100 99 97 O2 Delivery Room Air Nasal Cannula Nasal Cannula Nasal Cannula O2 Flow Rate 3.0 3.0 3.0 06/23/18 06/23/18 07:57 08:00 Temp 98.1 98.1 Pulse 90 Resp 16 B/P (MAP) 138/84 (102) Pulse Ox 98 O2 Delivery Nasal Cannula Nasal Cannula O2 Flow Rate 3.0 3.0 Intake and Output 06/22/18 06/22/1819 15:00 23:00 07:00 Intake Total 440 ml 500 ml 500 ml Output Total 2050 ml 575 ml Balance -1610 ml -75 ml 500 ml RAI DURANT MD June 23, 2018 11:35
[2018-06-23 11:38] VITALS: BP 115/75
[2018-06-23] MEDS ORDERED: MINERAL OIL/PETROLATUM TOPICAL CREAM 113GM JAR. TP PRN (11:45)
--- NOTE | 2018-06-23 14:38 | PDOC ---
PULMONARY PROGRESS NOTES Subjective PT STILL SOA LESS PAIN "LUNG BURN" Vitals Vital Signs Date Time Temp Pulse Resp B/P (MAP) Pulse Ox O2 Delivery O2 Flow Rate FiO2 06/23/18 11:38 98.5 99 16 115/75 (88) 97 Nasal Cannula 3.0 98.5 ROS: No Nausea, No Abdominal Pain General: Alert, No acute distress Lungs: Wheezing, Other (VERY POOR AIRFLOW) Cardiovascular: S1, S2 Abdomen: Soft, Non-tender Extremities: No Edema, Other Labs Laboratory Tests Test 06/22/18 10:06 06/22/18 16:24 06/22/18 19:07 06/23/18 07:08 Glucose (Fingerstick) 282 mg/dL (70-99) 114 mg/dL (70-99) 263 mg/dL (70-99) 150 mg/dL (70-99) Test 06/23/18 11:18 Glucose (Fingerstick) 246 mg/dL (70-99) Laboratory Tests Test 06/22/18 16:24 06/22/18 19:07 06/23/18 07:08 06/23/18 11:18 Glucose (Fingerstick) 114 mg/dL (70-99) 263 mg/dL (70-99) 150 mg/dL (70-99) 246 mg/dL (70-99) Medications Active Scripts Medications Dose Route/Sig Max Daily Dose Days Date Category Dose Instructions Tramadol Hcl 50 Mg Tablet 50 Mg PO Q6HRS PRN 06/20/18 Reported Furosemide 40 Mg Tablet 1 Tab PO DAILY 06/20/18 Reported Ativan (Lorazepam) 1 Mg Tablet 1 Mg PO BID 06/15/18 Rx Prednisone (Prednisone) 10 Mg Tablet 10 Mg PO UD 06/15/18 Rx Take 3 tablets by mouth twice a day for 3 days, then take 2 tablets by mouth twice a day for 3 days, then take 1 tablet by mouth twice a day for 3 days, then take 1 tablet by mouth daily x 3 days, then stop. Guaifenesin 100 Mg/5 Ml Liquid 200 Mg PO PRN Q4HRS PRN 30 05/30/18 Rx Tylenol (Acetaminophen) 325 Mg Tablet 650 Mg PO PRN Q4HRS PRN 10 05/30/18 Rx Ventolin Hfa Inhaler (Albuterol Sulfate) 18 Gm Hfa.aer.ad 2 Puff INH Q4HRS 05/10/18 Rx Vitamin D3 (Cholecalciferol (Vitamin D3)) 5,000 Unit Tablet 5,000 Unit PO DAILY 03/15/18 Reported Reglan (Metoclopramide Hcl) 10 Mg Tablet 0.5 Tab PO QID 30 02/14/18 Rx Prednisone 20 Mg Tablet 40 Mg PO DAILY 01/31/18 Rx Potassium Chloride 20 Meq Tablet.er 20 Meq PO DAILY 01/13/18 Reported Protonix (Pantoprazole Sodium) 20 Mg Tablet.dr 1 Tab PO DAILY 11/18/17 Reported Flonase Allergy Relief (Fluticasone Propionate) 9.9 Ml [place].susp 2 Sprays NS DAILY 11/18/17 Reported Atorvastatin Calcium 10 Mg Tablet 10 Mg PO HS 08/21/17 Reported Albuterol Sulfate Neb Soln (Albuterol Sulfate) 2.5 Mg/3 Ml Vial.neb 1 Vial NEB PRN Q4HRS 07/10/17 Rx Symbicort 160-4.5 Mcg Inhaler (Budesonide/Formoterol Fumarate) 10.2 Gm Hfa.aer.ad 2 Puff IH BID 09/21/15 Reported Impression . IMPRESSION: 1. Slsus-lm-hdnosxa respiratory failure. 2. Acute exacerbation of chronic obstructive pulmonary disease. 3. Severe bullous emphysema, FEV1 less than 1 liter, last time checked of 350 mL. 4. Tobacco dependence, in remission. 5. Severe esophagitis. 6. Gastroesophageal reflux. Plan . 06/23 SPOKE WTT PT REGARDING LUNG TRANSPLANT HE WAS NOT A CANDIDATE FOR BULLECTOMY AT [facility], HE IS THINKING OF MOVING TO [place] TO BE CLOSER TO FAMILY..I WILL HELP HIM FIND A CENTER FOR TRANSPLANT ONCE DECISION IS FINALIZED 06/22 DIFFICULT SITUATION PT GET READMITTED EVERY MONTH HAS BEEN IN ER ON MULTIPLE ADMISSION FAILED OUT PT TREATMENT LUNGS BURNING WHEN HE BREATHS, REVIEWED LIFESTYLE MODIFICATION TO PREVENT GERD HE DOES SUFFER FROM ESOPHAGITIS COMPLEX DECISION MAKING FRUSTRATING FOR PHYSICIAN AND PATIENT WILL CHECK COVERAGE FOR HOME BIPAP 06/21 PLAN: The patient failed outpatient therapy has been seen in the Emergency Room on 2 separate occasions prior to this admission, he was struggling to maintain his saturations. He was unable to complete full sentence upon arrival to the Emergency Room. He will continue current steroids, antibiotics and nebulized treatments. He is also on the waiting list for lung transplant. SCOTT COOK MD June 23, 2018 14:38
[2018-06-23 15:00] VITALS: BP 119/71
[2018-06-23 19:05] VITALS: BP 137/81
[2018-06-23] MEDS: PATCH REMOVAL. MC SCH (21:00)
[2018-06-23] MEDS: traMADol 50 MG TABLET PO PRN (21:18)
[2018-06-23] MEDS: ATORVASTATIN CALCIUM 10 MG TABLET. PO SCH (21:19)
[2018-06-23 23:38] VITALS: BP 157/87
[2018-06-24 03:42] VITALS: BP 151/100
[2018-06-24] MEDS: methylPREDNISolone SOD SUCC PF 40 MG/ML VIAL. IV SCH ×3 (05:19→22:52)
[2018-06-24] MEDS: BUDESONIDE 0.5 MG/2 ML NEBU. NEB SCH ×2 (06:20→19:04)
[2018-06-24] MEDS: IPRATRPIUM/ALBUTEROL 0.5/2.5MG 3 ML NEBU. NEB SCH ×4 (06:20→19:04)
[2018-06-24 07:00] VITALS: BP 145/80
--- NOTE | 2018-06-24 08:31 | NUR ---
SW following Pt for anticipated dc needs. Chart reviewed. Pt lives at home with family and does not have skilled needs. Pt also has home 02. No SW/dc needs noted at this time.
[2018-06-24] MEDS: PANTOPRAZOLE 40 MG TABLET.DR. PO SCH (08:35)
[2018-06-24] MEDS: LORazepam 1 MG TABLET PO SCH ×2 (08:35→20:26)
[2018-06-24] MEDS: FLUTICASONE 50MCG/NASAL SPRAY 16GM BOTTLE. NS SCH (08:35)
[2018-06-24] MEDS: CHOLECALCIFEROL (VITAMIN D3) 5,000 UNIT CAPSULE PO SCH (08:36)
[2018-06-24] MEDS: LACTOBACILLUS RHAMNOSUS GG 1 CAPSULE. PO SCH ×2 (08:36→20:26)
[2018-06-24] MEDS: traMADol 50 MG TABLET PO PRN ×3 (08:36→22:52)
[2018-06-24] MEDS: METOCLOPRAMIDE 5 MG TABLET. PO SCH ×4 (08:36→20:26)
[2018-06-24] MEDS: POTASSIUM CHLORIDE 20 MEQ TABLET.ER. PO SCH (08:37)
[2018-06-24] MEDS: FUROSEMIDE 40 MG TABLET. PO SCH (08:37)
[2018-06-24] MEDS: LIDOCAINE (700MG/PATCH) PATCH. TD SCH (08:37)
--- NOTE | 2018-06-24 08:39 | PDOC ---
PULMONARY PROGRESS NOTES Subjective LOWER BACK HURTS CANNOT BREATH PT STILL SOA LESS PAIN "LUNG BURN" Vitals Vital Signs Date Time Temp Pulse Resp B/P (MAP) Pulse Ox O2 Delivery O2 Flow Rate FiO2 06/24/18 07:00 98.3 90 22 145/80 (101) 100 Nasal Cannula 3.0 98.3 ROS: No Nausea, No Abdominal Pain General: Alert, No acute distress Lungs: Wheezing, Other (VERY POOR AIRFLOW) Cardiovascular: S1, S2 Abdomen: Soft, Non-tender Extremities: No Edema, Other Labs Laboratory Tests Test 06/22/18 10:06 06/22/18 16:24 06/22/18 19:07 06/23/18 07:08 Glucose (Fingerstick) 282 mg/dL (70-99) 114 mg/dL (70-99) 263 mg/dL (70-99) 150 mg/dL (70-99) Test 06/23/18 11:18 06/23/18 16:36 06/23/18 19:28 06/24/18 07:13 Glucose (Fingerstick) 246 mg/dL (70-99) 182 mg/dL (70-99) 316 mg/dL (70-99) 151 mg/dL (70-99) Laboratory Tests Test 06/23/18 11:18 06/23/18 16:36 06/23/18 19:28 06/24/18 07:13 Glucose (Fingerstick) 246 mg/dL (70-99) 182 mg/dL (70-99) 316 mg/dL (70-99) 151 mg/dL (70-99) Medications Active Scripts Medications Dose Route/Sig Max Daily Dose Days Date Category Dose Instructions Tramadol Hcl 50 Mg Tablet 50 Mg PO Q6HRS PRN 06/20/18 Reported Furosemide 40 Mg Tablet 1 Tab PO DAILY 06/20/18 Reported Ativan (Lorazepam) 1 Mg Tablet 1 Mg PO BID 06/15/18 Rx Prednisone (Prednisone) 10 Mg Tablet 10 Mg PO UD 06/15/18 Rx Take 3 tablets by mouth twice a day for 3 days, then take 2 tablets by mouth twice a day for 3 days, then take 1 tablet by mouth twice a day for 3 days, then take 1 tablet by mouth daily x 3 days, then stop. Guaifenesin 100 Mg/5 Ml Liquid 200 Mg PO PRN Q4HRS PRN 30 05/30/18 Rx Tylenol (Acetaminophen) 325 Mg Tablet 650 Mg PO PRN Q4HRS PRN 10 05/30/18 Rx Ventolin Hfa Inhaler (Albuterol Sulfate) 18 Gm Hfa.aer.ad 2 Puff INH Q4HRS 05/10/18 Rx Vitamin D3 (Cholecalciferol (Vitamin D3)) 5,000 Unit Tablet 5,000 Unit PO DAILY 03/15/18 Reported Reglan (Metoclopramide Hcl) 10 Mg Tablet 0.5 Tab PO QID 30 02/14/18 Rx Prednisone 20 Mg Tablet 40 Mg PO DAILY 01/31/18 Rx Potassium Chloride 20 Meq Tablet.er 20 Meq PO DAILY 01/13/18 Reported Protonix (Pantoprazole Sodium) 20 Mg Tablet.dr 1 Tab PO DAILY 11/18/17 Reported Flonase Allergy Relief (Fluticasone Propionate) 9.9 Ml [place].susp 2 Sprays NS DAILY 11/18/17 Reported Atorvastatin Calcium 10 Mg Tablet 10 Mg PO HS 08/21/17 Reported Albuterol Sulfate Neb Soln (Albuterol Sulfate) 2.5 Mg/3 Ml Vial.neb 1 Vial NEB PRN Q4HRS 07/10/17 Rx Symbicort 160-4.5 Mcg Inhaler (Budesonide/Formoterol Fumarate) 10.2 Gm Hfa.aer.ad 2 Puff IH BID 09/21/15 Reported Impression . IMPRESSION: 1. Iilul-mp-zwdwjal respiratory failure. 2. Acute exacerbation of chronic obstructive pulmonary disease. 3. Severe bullous emphysema, FEV1 less than 1 liter, last time checked of 350 mL. 4. Tobacco dependence, in remission. 5. Severe esophagitis. 6. Gastroesophageal reflux. 7. LOWER BACK SPASM Plan . 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 He was unable to complete full sentence upon arrival to the Emergency Room. He will continue current steroids, antibiotics and nebulized treatments. He is also on the waiting list for lung transplant. SCOTT COOK MD June 24, 2018 08:39
[2018-06-24] MEDS: INSULIN LISPRO 300 UNITS/3 ML INSULN.PEN. SQ SCH ×3 (08:44→17:00)
[2018-06-24] MEDS ORDERED: guaiFENesin/CODEINE 100mg/10mg 5 ML LIQUID PO PRN (10:30)
--- NOTE | 2018-06-24 10:30 | PDOC ---
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 i offered DC soon if he feels able, he will consider Vitals Vitals Vital Signs Date Time Temp Pulse Resp B/P (MAP) Pulse Ox O2 Delivery O2 Flow Rate FiO2 06/24/18 08:36 18 Nasal Cannula 3.0 06/24/18 07:00 98.3 90 145/80 (101) 100 98.3 Physical Exam General: Alert, Oriented X3, Cooperative, mild distress Heart: Regular rate, Normal S1, Normal S2, Other (sinus tachycardia) Lungs: Wheezing, Other (VERY POOR AIRFLOW) Abdomen: Normal bowel sounds, Soft Extremities: No clubbing, No cyanosis Skin: Other (onychomycosis both feet) Labs LABS Laboratory Tests Test 06/23/18 11:18 06/23/18 16:36 06/23/18 19:28 06/24/18 07:13 Glucose (Fingerstick) 246 mg/dL (70-99) 182 mg/dL (70-99) 316 mg/dL (70-99) 151 mg/dL (70-99) Review of Systems Review of Systems cough, dyspnea, pain, wweakness, Assessment and Plan Assessmemt and Plan Problems Medical Problems: (1) COPD with exacerbation Status: Acute Comment Review of Relevant I have reviewed the following items franki (where applicable) has been applied. Labs Laboratory Tests Test 06/22/18 16:24 06/22/18 19:07 06/23/18 07:08 06/23/18 11:18 Glucose (Fingerstick) 114 mg/dL (70-99) 263 mg/dL (70-99) 150 mg/dL (70-99) 246 mg/dL (70-99) Test 06/23/18 16:36 06/23/18 19:28 06/24/18 07:13 Glucose (Fingerstick) 182 mg/dL (70-99) 316 mg/dL (70-99) 151 mg/dL (70-99) Laboratory Tests Test 06/23/18 11:18 06/23/18 16:36 06/23/18 19:28 06/24/18 07:13 Glucose (Fingerstick) 246 mg/dL (70-99) 182 mg/dL (70-99) 316 mg/dL (70-99) 151 mg/dL (70-99) Medications Current Medications Methylprednisolone Sodium Succinate (SOLU-Medrol 125MG VIAL) 125 mg 1X ONCE IV Last administered on 06/20/18 17:35; Start 06/20/18 at 16:30; Stop 06/20/18 at 16:31; Status DC Albuterol/ Ipratropium (Duoneb) 3 ml 1X ONCE NEB Last administered on 06/20/18at 16:52; Start 06/20/18 at 16:30; Stop 06/20/18 at 16:31; Status DC Albuterol/ Ipratropium (Duoneb) 3 ml RTQID NEB Last administered on 06/20/18at 20:38; Start 06/20/18 at 20:00; Stop 06/20/18 at 22:33; Status DC Atorvastatin Calcium (Lipitor) 10 mg HS PO Last administered on 06/23/18 21:19; Start 06/21/18 at 00:00 Furosemide (Lasix) 40 mg DAILY PO Last administered on 06/24/18at 08:37; Start 06/21/18 at 09:00 Guaifenesin (Robitussin) 200 mg PRN Q4HRS PRN PO COUGH 1ST CHOICE Last adm inistered on 06/20/18at 22:59; Start 06/20/18 at 22:30 Lorazepam (Ativan) 1 mg BID PO Last administered on 06/24/18 08:35; Start 06/21/18 at 00:00 Metoclopramide HCl (Reglan) 5 mg QIDACHS PO Last administered on 06/24/18 08:36; Start 06/21/18 at 07:30 Prednisone (Prednisone) 40 mg DAILY PO Last administered on 06/21/18 08:24; Start 06/21/18 at 09:00; Stop 06/21/18 at 11:48; Status DC Albuterol Sulfate (Ventolin Neb Soln) 2.5 mg PRN Q4HRS PRN NEB SHORTNESS OF BREATH Last administered on 06/22/18 04:29; Start 06/20/18 at 22:30 Budesonide (Pulmicort) 0.5 mg RTBID NEB Last administered on 06/24/18 06:20; Start 06/21/18 at 08:00 Vitamin D (Vitamin D3) 5,000 unit DAILY PO Last administered on 06/24/18 08:36; Start 06/21/18 at 09:00 Fluticasone Propionate (Flonase) 2 spray DAILY NS Last administered on 06/24/18 08:35; Start 06/21/18 at 09:00 Pantoprazole Sodium (Protonix) 40 mg DAILYAC PO Last administered on 06/24/18 08:35; Start 06/21/18 at 07:30 Potassium Chloride (Klor-Con) 20 meq DAILYWBKFT PO Last administered on 06/24/18 08:37; Start 06/21/18 at 08:00 Ceftriaxone Sodium (Rocephin) 1 gm Q24H IVP Last administered on 06/23/18 23:51; Start 06/20/18 at 23:00 Methylprednisolone Sodium Succinate (SOLU-Medrol 40MG VIAL) 60 mg Q8HRS IV Last administered on 06/21/18 05:06; Start 06/21/18 at 06:00; Stop 06/21/18 at 11:48; Status DC Albuterol/ Ipratropium (Duoneb) 3 ml RTQID NEB Last administered on 06/24/18 06:20; Start 06/21/18 at 08:00 Albuterol Sulfate (Ventolin Neb Soln) 2.5 mg RTQID NEB ; Start 06/21/18 at 20:00; Status Cancel Tramadol HCl (Ultram) 50 mg PRN Q6HRS PRN PO MODERATE PAIN Last administered on 06/24/18 08:36; Start 06/20/18 at 23:15 Potassium Chloride (Klor-Con) 40 meq 1X ONCE PO Last administered on 06/21/18 09:15; Start 06/21/18 at 09:15; Stop 5/10/19 at 09:18; Status DC Methylprednisolone Sodium Succinate (SOLU-Medrol 40MG VIAL) 40 mg Q8HRS IV Last administered on 06/24/18at 05:19; Start 06/21/18 at 14:00 Lidocaine (Lidoderm) 1 patch DAILY TD Last administered on 06/24/18at 08:37; Start 06/21/18 at 11:45 Miscellaneous (Lidoderm Patch Removal) 1 ea QHS MC ; Start 06/21/18 at 21:00 Lactobacillus Rhamnosus (Culturelle) 1 cap BID PO Last administered on 06/24/18at 08:36; Start 06/21/18 at 21:00 Furosemide (Lasix) 20 mg 1X ONCE IVP Last administered on 06/22/18at 12:00; Start 06/22/18 at 12:00; Stop 06/22/18 at 12:01; Status DC Insulin Human Lispro (HumaLOG) 0-9 UNITS TIDWMEALS SQ Last administered on 06/24/18at 08:44; Start 06/22/18 at 12:00 Dextrose (Dextrose 50%-Water Syringe) 12.5 gm PRN Q15MIN PRN IV SEE COMMENTS; Start 06/22/18 at 11:30 Multi-Ingred Cream/Lotion/Oil/ Oint (Hydrocerin Cream) 1 elieser PRN Q1HR PRN TP DRY SKIN / SCALING; Start 06/23/18 at 11:45 Active Scripts Active Ativan (Lorazepam) 1 Mg Tablet 1 Mg PO BID Prednisone (Prednisone) 10 Mg Tablet 10 Mg PO UD Take 3 tablets by mouth twice a day for 3 days, then take 2 tablets by mouth twice a day for 3 days, then take 1 tablet by mouth twice a day for 3 days, then take 1 tablet by mouth daily x 3 days, then stop. Guaifenesin 100 Mg/5 Ml Liquid 200 Mg PO PRN Q4HRS PRN 30 Days Tylenol (Acetaminophen) 325 Mg Tablet 650 Mg PO PRN Q4HRS PRN 10 Days Ventolin Hfa Inhaler (Albuterol Sulfate) 18 Gm Hfa.aer.ad 2 Puff INH Q4HRS Reglan (Metoclopramide Hcl) 10 Mg Tablet 0.5 Tab PO QID 30 Days Prednisone 20 Mg Tablet 40 Mg PO DAILY Albuterol Sulfate Neb Soln (Albuterol Sulfate) 2.5 Mg/3 Ml Vial.neb 1 Vial NEB PRN Q4HRS Reported Tramadol Hcl 50 Mg Tablet 50 Mg PO Q6HRS PRN Furosemide 40 Mg Tablet 1 Tab PO DAILY Vitamin D3 (Cholecalciferol (Vitamin D3)) 5,000 Unit Tablet 5,000 Unit PO DAILY Potassium Chloride 20 Meq Tablet.er 20 Meq PO DAILY Protonix (Pantoprazole Sodium) 20 Mg Tablet.dr 1 Tab PO DAILY Flonase Allergy Relief (Fluticasone Propionate) 9.9 Ml [place].susp 2 Sprays NS DAILY Atorvastatin Calcium 10 Mg Tablet 10 Mg PO HS Symbicort 160-4.5 Mcg Inhaler (Budesonide/Formoterol Fumarate) 10.2 Gm Hfa.aer.ad 2 Puff IH BID Vitals/I & O Vital Sign - Last 24 Hours 06/23/18 06/23/18 06/23/18 06/23/18 11:11 11:38 15:00 15:39 Temp 98.5 99.6 98.5 99.6 Pulse 99 93 Resp 16 16 B/P (MAP) 115/75 (88) 119/71 (87) Pulse Ox 97 97 O2 Delivery Nasal Cannula Nasal Cannula Nasal Cannula Nasal Cannula O2 Flow Rate 3.0 3.0 3.0 3.0 06/23/18 06/23/18 06/23/18 06/23/18 19:05 20:00 21:18 22:18 Temp 98.5 98.5 Pulse 116 Resp 18 B/P (MAP) 137/81 (99) Pulse Ox 95 95 O2 Delivery Nasal Cannula Nasal Cannula Nasal Cannula Nasal Cannula O2 Flow Rate 3.0 3.0 3.0 3.0 06/23/18 06/24/18 06/24/18 06/24/18 23:38 03:42 06:21 07:00 Temp 98.3 98.1 98.3 98.3 98.1 98.3 Pulse 92 94 90 Resp 18 18 22 B/P (MAP) 157/87 (110) 151/100 (117) 145/80 (101) Pulse Ox 98 92 100 100 O2 Delivery Nasal Cannula Nasal Cannula Nasal Cannula Nasal Cannula O2 Flow Rate 3.0 3.0 3.0 3.0 06/24/18 08:36 Resp 18 O2 Delivery Nasal Cannula O2 Flow Rate 3.0 Intake and Output 506/23/18 06/24/18 15:00 23:00 07:00 Intake Total 900 ml 750 ml 100 ml Output Total 450 ml 300 ml Balance 450 ml 450 ml 100 ml PATRIA SHIELDS MD June 24, 2018 10:30
[2018-06-24 11:00] VITALS: BP 135/83
[2018-06-24 14:46] VITALS: BP 119/68
[2018-06-24 19:12] VITALS: BP 140/76
[2018-06-24] MEDS: ATORVASTATIN CALCIUM 10 MG TABLET. PO SCH (20:26)
[2018-06-24] MEDS: PATCH REMOVAL. MC SCH (20:26)
[2018-06-24] MEDS: cefTRIAXone IV Push 1 GM VIAL. IVP SCH (22:52)
[2018-06-24 23:40] VITALS: BP 123/89
[2018-06-25] MEDS: methylPREDNISolone SOD SUCC PF 40 MG/ML VIAL. IV SCH (06:25)
[2018-06-25 07:00] VITALS: BP 124/88
[2018-06-25] MEDS: IPRATRPIUM/ALBUTEROL 0.5/2.5MG 3 ML NEBU. NEB SCH ×2 (07:07→11:02)
[2018-06-25] MEDS: BUDESONIDE 0.5 MG/2 ML NEBU. NEB SCH (07:07)
[2018-06-25] MEDS: PANTOPRAZOLE 40 MG TABLET.DR. PO SCH (07:49)
[2018-06-25] MEDS: METOCLOPRAMIDE 5 MG TABLET. PO SCH ×2 (07:49→11:52)
[2018-06-25] MEDS: FLUTICASONE 50MCG/NASAL SPRAY 16GM BOTTLE. NS SCH (08:34)
[2018-06-25] MEDS: LIDOCAINE (700MG/PATCH) PATCH. TD SCH (08:35)
[2018-06-25] MEDS: POTASSIUM CHLORIDE 20 MEQ TABLET.ER. PO SCH (08:35)
[2018-06-25] MEDS: CHOLECALCIFEROL (VITAMIN D3) 5,000 UNIT CAPSULE PO SCH (08:35)
[2018-06-25] MEDS: FUROSEMIDE 40 MG TABLET. PO SCH (08:35)
[2018-06-25] MEDS: traMADol 50 MG TABLET PO PRN (08:36)
[2018-06-25] MEDS: LORazepam 1 MG TABLET PO SCH (08:36)
[2018-06-25] MEDS: LACTOBACILLUS RHAMNOSUS GG 1 CAPSULE. PO SCH (08:36)
[2018-06-25] MEDS: INSULIN LISPRO 300 UNITS/3 ML INSULN.PEN. SQ SCH ×2 (08:43→11:54)
[2018-06-25] MEDS ORDERED: PRED-220 PO (09:15)
[2018-06-25] MEDS ORDERED: TRAM50TA PO (09:15)
[2018-06-25] MEDS ORDERED: AMOX1TAB61 PO (09:15)
--- NOTE | 2018-06-25 09:16 | SNU/HH DC ---
DISCHARGE WITH HOME HEALTH DISCHARGE INFORMATION: Discharge Date: June 25, 2018 Final Diagnosis: Problems Medical Problems: (1) COPD with exacerbation Status: Acute Condition on Discharge: Stable CODE STATUS: Code Status: Full HOME HEALTH: Face to Face: I certify this patient is under my care and that I, had a face to face encounter that meets the physician face to face encounter requirements with this patient o n 06/25 Medical Complications: COPD RN For Eval/Treatment: Yes Physical Therapy For: Evalulation/Treatment Pt Meets Homebound Status: Fatigue w/ amb., Other: (need resp therapist eval) POST DISCHARGE ORDERS: Activity Instructions for Disc: Activity as tolerated Weight Bearing Status after Di: As tolerated DIET AFTER DISCHARGE: Cardiac CHECKS AFTER DISCHARGE: Checks after discharge: Check blood press - daily, Check blood sugar, ac/hs, Check your Temp as needed, Weigh Yourself Daily TREATMENT/EQUIPMENT ORDERS: Adaptive Equipment Issued: None Discharge Respiratory Equipmen: Oxygen CERTIFICATION STATEMENT: Certification Statement: Certification Statement: Based on the above finding, I certify that this patient is confined to the home and needs intermittent [place] [facility] care, physical therapy and/or speech therapy, or continues to need occupational therapy.~ This patient is under my care, and I have initiated the establishment of the plan of care.~ This patient will be followed by myself or a community physician who will periodically review the plan of care. Home Meds Active Scripts Amoxicillin/Potassium Clav (AUGMENTIN 875-125 TABLET) 1 Each Tablet, 1 TAB PO BID for bronchitis, #12 TAB Prov:PATRIA SHIELDS MD 06/25/18 Tramadol Hcl (TRAMADOL HCL) 50 Mg Tablet, 50 MG PO Q6HRS PRN for PAIN, #30 TAB Prov:PATRIA SHIELDS MD 06/25/18 Prednisone (PREDNISONE ) 10 Mg Tablet, 10 MG PO UD for PREDNISONE TAPER, #39 TAB 0 Refills Take 3 tablets by mouth twice a day for 3 days, then take 2 tablets by mouth twice a day for 3 days, then take 1 tablet by mouth twice a day for 3 days, then take 1 tablet by mouth daily x 3 days, then stop. Prov:PATRIA SHIELDS MD 06/25/18 Lorazepam (ATIVAN) 1 Mg Tablet, 1 MG PO BID, #20 TAB Prov:TEVIN GOODWIN MD 06/15/18 Guaifenesin (GUAIFENESIN) 100 Mg/5 Ml Liquid, 200 MG PO PRN Q4HRS PRN for COUGH for 30 Days, #120 LIQUID Prov:TOMAS BAIG MD 05/30/18 Acetaminophen (TYLENOL) 325 Mg Tablet, 650 MG PO PRN Q4HRS PRN for TEMP OVER 100.4F OR MILD PAIN for 10 Days, #30 TAB Prov:TOMAS BAIG MD 05/30/18 Albuterol Sulfate (VENTOLIN HFA INHALER) 18 Gm Hfa.aer.ad, 2 PUFF INH Q4HRS for FOR ASTHMA, #1 INHALER 0 Refills Prov:SD JON APRN 05/10/18 Metoclopramide Hcl (REGLAN) 10 Mg Tablet, 0.5 TAB PO QID for gerd for 30 Days, #60 TAB Prov:TOMAS BAIG MD 02/14/18 Albuterol Sulfate (ALBUTEROL SULFATE NEB SOLN) 2.5 Mg/3 Ml Vial.neb, 1 VIAL NEB PRN Q4HRS, #50 VIAL Prov:TEVIN GOODWIN MD 07/10/17 Reported Medications Furosemide (FUROSEMIDE) 40 Mg Tablet, 1 TAB PO DAILY for water, #30 TAB 5 Refills 06/20/18 Cholecalciferol (Vitamin D3) (VITAMIN D3) 5,000 Unit Tablet, 5000 UNIT PO DAILY for supplement, TAB 03/15/18 Potassium Chloride (POTASSIUM CHLORIDE) 20 Meq Tablet.er, 20 MEQ PO DAILY for s upplement, TAB.SR 01/13/18 Pantoprazole Sodium (PROTONIX) 20 Mg Tablet.dr, 1 TAB PO DAILY, #30 TAB 11/18/17 Fluticasone Propionate (Flonase Allergy Relief) 9.9 Ml [place].susp, 2 SPRAYS NS DAILY, BOTTLE 11/18/17 Atorvastatin Calcium (ATORVASTATIN CALCIUM) 10 Mg Tablet, 10 MG PO HS for FOR CHOLESTEROL, #30 TAB 0 Refills 08/21/17 Budesonide/Formoterol Fumarate (SYMBICORT 160-4.5 MCG INHALER) 10.2 Gm Hfa.aer.ad, 2 PUFF IH BID, #10.6 GM 3 Refills 09/21/15 Discontinued Reported Medications Tiotropium [place] (SPIRIVA) 18 Mcg Cap.w.dev, 2 INH IH DAILY, #1 INH 0 Refills 09/21/15 Discontinued Scripts Prednisone (PREDNISONE) 20 Mg Tablet, 40 MG PO DAILY for copd, #20 TAB Prov:HERMELINDO RICHARDSON MD 01/31/18 PATRIA SHIELDS MD June 25, 2018 09:16
--- NOTE | 2018-06-25 09:33 | PDOC ---
PULMONARY PROGRESS NOTES Subjective LESS SOA LESS PAIN Vitals Vital Signs Date Time Temp Pulse Resp B/P (MAP) Pulse Ox O2 Delivery O2 Flow Rate FiO2 06/25/18 08:36 18 100 Nasal Cannula 3.0 06/25/18 07:01 77 06/25/18 07:00 98.0 124/88 (100) 98.0 ROS: No Nausea, No Abdominal Pain General: Alert, No acute distress Lungs: Other (VERY POOR AIRFLOW) Cardiovascular: S1, S2 Abdomen: Soft, Non-tender Extremities: No Edema, Other Labs Laboratory Tests Test 06/23/18 11:18 06/23/18 16:36 06/23/18 19:28 06/24/18 07:13 Glucose (Fingerstick) 246 mg/dL (70-99) 182 mg/dL (70-99) 316 mg/dL (70-99) 151 mg/dL (70-99) Test 06/24/18 11:55 06/24/18 17:01 06/25/18 07:55 Glucose (Fingerstick) 173 mg/dL (70-99) 129 mg/dL (70-99) 202 mg/dL (70-99) Laboratory Tests Test 06/24/18 11:55 06/24/18 17:01 06/25/18 07:55 Glucose (Fingerstick) 173 mg/dL (70-99) 129 mg/dL (70-99) 202 mg/dL (70-99) Medications Active Scripts Medications Dose Route/Sig Max Daily Dose Days Date Category Dose Instructions Tramadol Hcl 50 Mg Tablet 50 Mg PO Q6HRS PRN 06/20/18 Reported Furosemide 40 Mg Tablet 1 Tab PO DAILY 06/20/18 Reported Ativan (Lorazepam) 1 Mg Tablet 1 Mg PO BID 06/15/18 Rx Prednisone (Prednisone) 10 Mg Tablet 10 Mg PO UD 06/15/18 Rx Take 3 tablets by mouth twice a day for 3 days, then take 2 tablets by mouth twice a day for 3 days, then take 1 tablet by mouth twice a day for 3 days, then take 1 tablet by mouth daily x 3 days, then stop. Guaifenesin 100 Mg/5 Ml Liquid 200 Mg PO PRN Q4HRS PRN 30 05/30/18 Rx Tylenol (Acetaminophen) 325 Mg Tablet 650 Mg PO PRN Q4HRS PRN 10 05/30/18 Rx Ventolin Hfa Inhaler (Albuterol Sulfate) 18 Gm Hfa.aer.ad 2 Puff INH Q4HRS 05/10/18 Rx Vitamin D3 (Cholecalciferol (Vitamin D3)) 5,000 Unit Tablet 5,000 Unit PO DAILY 03/15/18 Reported Reglan (Metoclopramide Hcl) 10 Mg Tablet 0.5 Tab PO QID 30 02/14/18 Rx Prednisone 20 Mg Tablet 40 Mg PO DAILY 01/31/18 Rx Potassium Chloride 20 Meq Tablet.er 20 Meq PO DAILY 01/13/18 Reported Protonix (Pantoprazole Sodium) 20 Mg Tablet.dr 1 Tab PO DAILY 11/18/17 Reported Flonase Allergy Relief (Fluticasone Propionate) 9.9 Ml [place].susp 2 Sprays NS DAILY 11/18/17 Reported Atorvastatin Calcium 10 Mg Tablet 10 Mg PO HS 08/21/17 Reported Albuterol Sulfate Neb Soln (Albuterol Sulfate) 2.5 Mg/3 Ml Vial.neb 1 Vial NEB PRN Q4HRS 07/10/17 Rx Symbicort 160-4.5 Mcg Inhaler (Budesonide/Formoterol Fumarate) 10.2 Gm Hfa.aer.ad 2 Puff IH BID 09/21/15 Reported Impression . IMPRESSION: 1. Hqfiz-pl-bekqlup respiratory failure. 2. Acute exacerbation of chronic obstructive pulmonary disease. 3. Severe bullous emphysema, FEV1 less than 1 liter, last time checked of 350 mL. 4. Tobacco dependence, in remission. 5. Severe esophagitis. 6. Gastroesophageal reflux. 7. LOWER BACK SPASM Plan . OK TO D/C FROM MY STANDPOINT PT TO FOLLOW UP WITH DR COOK IN OFFICE DIFFICULT SITUATION PT GET READMITTED EVERY MONTH HAS BEEN IN ER ON MULTIPLE ADMISSION FAILED OUT PT TREATMENT LUNGS BURNING WHEN HE BREATHS, REVIEWED LIFESTYLE MODIFICATION TO PREVENT GERD HE DOES SUFFER FROM ESOPHAGITIS COMPLEX DECISION MAKING FRUSTRATING FOR PHYSICIAN AND PATIENT WILL CHECK COVERAGE FOR HOME BIPAP 06/21 PLAN: The patient failed outpatient therapy has been seen in the Emergency Room on 2 separate occasions prior to this admission, he was struggling to maintain his saturations. He was unable to complete full sentence upon arrival to the Emergency Room. He will continue current steroids, antibiotics and nebulized treatments. He is also on the waiting list for lung transplant. Pt to re-schedule appointment at [facility] MD June 25, 2018 09:32
[2018-06-25 09:56] LABS: BASO % 0 % (0-3); EOS % 0 % (0-3); HEMATOCRIT 35.6 % (39.0-53.0); HEMOGLOBIN 12.1 g/dL (13.0-17.5); LYMPH # 0.2 x10^3/uL (1.0-4.8); LYMPH % 2 % (24-48); MEAN CORPUSCULAR HEMOGLOBIN 30 pg (25-35); MEAN CORPUSCULAR HGB CONC 34 g/dL (31-37); MEAN CORPUSCULAR VOLUME 89 fL (79-100); MONO # 0.1 x10^3/uL (0.0-1.1); MONO % 2 % (0-9); NEUT # 8.5 x10^3uL (1.8-7.7); NEUT % 96 % (31-73); PLATELET COUNT 203 x10^3/uL (140-400); RED BLOOD COUNT 4.02 x10^6/uL (4.30-5.70); RED CELL DISTRIBUTION WIDTH 15.5 % (11.5-14.5); WHITE BLOOD COUNT 8.9 x10^3/uL (4.0-11.0)
[2018-06-25 10:16] LABS: ALBUMIN 3.3 g/dL (3.4-5.0); CALCIUM 9.2 mg/dL (8.5-10.1); GFR 92.5; POTASSIUM 4.5 mmol/L (3.5-5.1); TOTAL BILIRUBIN 0.4 mg/dL (0.2-1.0); TOTAL PROTEIN 6.6 g/dL (6.4-8.2)
[2018-06-25 11:00] VITALS: BP 126/76
--- NOTE | 2018-06-25 12:19 | NUR ---
Discharge Note: KAYLA ROMAN JR [address] [place] [address] Discharge instructions and discharge home w/ HH, medications reviewed with Patient and a copy given. All questions have been answered and understanding verbalized. The following instructions and handouts were given: COPD ABT&R Discontinued lines and drains: peripheral IV. Patient discharged to Home or Self Care with Transport Personnel via Wheelchair
--- NOTE | 2018-06-25 16:10 | PDOC3 ---
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 acute on chronic hypoxic and hypercarbic respiratory failure Chronic steroid use Insomnia, mood swings in the background of chronic steroid use Hx diastolic heart failure HTN on meds, dyslipidemia on statin hypokalemia Back pain, pleuritic End-stage COPD frequent hospitalizations not interested in hospice discussion Problems Medical Problems: (1) COPD with exacerbation Status: Acute Brief Hospital Course Allergies Allergies Coded Allergies Type Severity Reaction Last Updated Verified acetaminophen Allergy Intermediate TAKES NORCO AT HOME 01/29/18 Yes Vital Signs Vital Signs Date Time Temp Pulse Resp B/P (MAP) Pulse Ox O2 Delivery O2 Flow Rate FiO2 06/25/18 11:03 Nasal Cannula 3.0 06/25/18 11:00 97.7 120 18 126/76 (93) 97 97.7 Lab Results Laboratory Tests Test 06/23/18 16:36 06/23/18 19:28 06/24/18 07:13 06/24/18 11:55 Glucose (Fingerstick) 182 mg/dL (70-99) 316 mg/dL (70-99) 151 mg/dL (70-99) 173 mg/dL (70-99) Test 06/24/18 17:01 06/25/18 07:55 06/25/18 09:20 06/25/18 11:40 Glucose (Fingerstick) 129 mg/dL (70-99) 202 mg/dL (70-99) 246 mg/dL (70-99) White Blood Count 8.9 x10^3/uL (4.0-11.0) Red Blood Count 4.02 x10^6/uL (4.30-5.70) Hemoglobin 12.1 g/dL (13.0-17.5) Hematocrit 35.6 % (39.0-53.0) Mean Corpuscular Volume 89 fL (79-100) Mean Corpuscular Hemoglobin 30 pg (25-35) Mean Corpuscular Hemoglobin Concent 34 g/dL (31-37) Red Cell Distribution Width 15.5 % (11.5-14.5) Platelet Count 203 x10^3/uL (140-400) Neutrophils (%) (Auto) 96 % (31-73) Lymphocytes (%) (Auto) 2 % (24-48) Monocytes (%) (Auto) 2 % (0-9) Eosinophils (%) (Auto) 0 % (0-3) Basophils (%) (Auto) 0 % (0-3) Neutrophils # (Auto) 8.5 x10^3uL (1.8-7.7) Lymphocytes # (Auto) 0.2 x10^3/uL (1.0-4.8) Monocytes # (Auto) 0.1 x10^3/uL (0.0-1.1) Eosinophils # (Auto) 0.0 x10^3/uL (0.0-0.7) Basophils # (Auto) 0.0 x10^3/uL (0.0-0.2) Sodium Level 136 mmol/L (136-145) Potassium Level 4.5 mmol/L (3.5-5.1) Chloride Level 94 mmol/L (98-107) Carbon Dioxide Level 34 mmol/L (21-32) Anion Gap 8 (6-14) Blood Urea Nitrogen 21 mg/dL (8-26) Creatinine 1.0 mg/dL (0.7-1.3) Estimated GFR (Cockcroft-Gault) 92.5 BUN/Creatinine Ratio 21 (6-20) Glucose Level 347 mg/dL (70-99) Calcium Level 9.2 mg/dL (8.5-10.1) Total Bilirubin 0.4 mg/dL (0.2-1.0) Aspartate Amino Transf (AST/SGOT) 12 U/L (15-37) Alanine Aminotransferase (ALT/SGPT) 30 U/L (16-63) Alkaline Phosphatase 100 U/L (46-116) Total Protein 6.6 g/dL (6.4-8.2) Albumin 3.3 g/dL (3.4-5.0) Albumin/Globulin Ratio 1.0 (1.0-1.7) Laboratory Tests Test 06/24/18 17:01 06/25/18 07:55 06/25/18 09:20 06/25/18 11:40 Glucose (Fingerstick) 129 mg/dL (70-99) 202 mg/dL (70-99) 246 mg/dL (70-99) White Blood Count 8.9 x10^3/uL (4.0-11.0) Red Blood Count 4.02 x10^6/uL (4.30-5.70) Hemoglobin 12.1 g/dL (13.0-17.5) Hematocrit 35.6 % (39.0-53.0) Mean Corpuscular Volume 89 fL (79-100) Mean Corpuscular Hemoglobin 30 pg (25-35) Mean Corpuscular Hemoglobin Concent 34 g/dL (31-37) Red Cell Distribution Width 15.5 % (11.5-14.5) Platelet Count 203 x10^3/uL (140-400) Neutrophils (%) (Auto) 96 % (31-73) Lymphocytes (%) (Auto) 2 % (24-48) Monocytes (%) (Auto) 2 % (0-9) Eosinophils (%) (Auto) 0 % (0-3) Basophils (%) (Auto) 0 % (0-3) Neutrophils # (Auto) 8.5 x10^3uL (1.8-7.7) Lymphocytes # (Auto) 0.2 x10^3/uL (1.0-4.8) Monocytes # (Auto) 0.1 x10^3/uL (0.0-1.1) Eosinophils # (Auto) 0.0 x10^3/uL (0.0-0.7) Basophils # (Auto) 0.0 x10^3/uL (0.0-0.2) Sodium Level 136 mmol/L (136-145) Potassium Level 4.5 mmol/L (3.5-5.1) Chloride Level 94 mmol/L (98-107) Carbon Dioxide Level 34 mmol/L (21-32) Anion Gap 8 (6-14) Blood Urea Nitrogen 21 mg/dL (8-26) Creatinine 1.0 mg/dL (0.7-1.3) Estimated GFR (Cockcroft-Gault) 92.5 BUN/Creatinine Ratio 21 (6-20) Glucose Level 347 mg/dL (70-99) Calcium Level 9.2 mg/dL (8.5-10.1) Total Bilirubin 0.4 mg/dL (0.2-1.0) Aspartate Amino Transf (AST/SGOT) 12 U/L (15-37) Alanine Aminotransferase (ALT/SGPT) 30 U/L (16-63) Alkaline Phosphatase 100 U/L (46-116) Total Protein 6.6 g/dL (6.4-8.2) Albumin 3.3 g/dL (3.4-5.0) Albumin/Globulin Ratio 1.0 (1.0-1.7) Brief Hospital Course Mr. Nash is a 58 old admti with chest pain and dyspnea, worsening of chroinc with exac of COPD, similar to prev, steroid burst, nebs Discharge Information Condition at Discharge: Improved Follow Up: Weeks Disposition/Orders: D/C to Home w/ HH Scheduled Albuterol Sulfate (Albuterol Sulfate Neb Soln) 2.5 Mg/3 Ml Vial.neb, 1 VIAL NEB PRN Q4HRS, #50 Prescribed by: TEVIN GOODWIN MD on 07/10/17 0144 Albuterol Sulfate (Ventolin Hfa Inhaler) 18 Gm Hfa.aer.ad, 2 PUFF INH Q4HRS for FOR ASTHMA, #1 Ref 0 Prescribed by: Crys Guthrie APRN on 05/10/181919 Last Action: Converted on 06/20/182223 by Romero Bland Amoxicillin/Potassium Clav (Augmentin 875-125 Tablet) 1 Each Tablet, 1 TAB PO BID for bronchitis, #12 Prescribed by: PATRIA SHIELDS on 06/25/18 0915 Atorvastatin Calcium (Atorvastatin Calcium) 10 Mg Tablet, 10 MG PO HS for FOR CHOLESTEROL, #30 Ref 0 (Reported) Entered as Reported by: Romero Bland on 08/21/17 0246 Last Action: Continued on 06/20/182223 by Romero Bland Budesonide/Formoterol Fumarate (Symbicort 160-4.5 Mcg Inhaler) 10.2 Gm Hfa.aer.ad, 2 PUFF IH BID, #10.6 Ref 3 (Reported) Entered as Reported by: IMELDA PENNY on 09/21/152225 Last Action: Converted on 06/20/182223 by Romero Bland Cholecalciferol (Vitamin D3) (Vitamin D3) 5,000 Unit Tablet, 5,000 UNIT PO DAILY for supplement, (Reported) Entered as Reported by: DOE NAGY on 03/15/182132 Last Action: Converted on 06/20/182223 by Romero Bland Fluticasone Propionate (Flonase Allergy Relief) 9.9 Ml [place].susp, 2 SPRAYS NS DAILY, (Reported) Entered as Reported by: FREDA SUAREZ on 11/18/172350 Last Action: Converted on 06/20/182223 by Romero Bland Furosemide (Furosemide) 40 Mg Tablet, 1 TAB PO DAILY for water, #30 Ref 5 (Reported) Entered as Reported by: Romero Bland on 06/20/182043 Last Action: Continued on 06/20/182223 by Romero Bland Lorazepam (Ativan) 1 Mg Tablet, 1 MG PO BID, #20 Prescribed by: TEVIN GOODWIN MD on 06/15/181956 Last Action: Continued on 06/20/182223 by Romero Bland Metoclopramide Hcl (Reglan) 10 Mg Tablet, 0.5 TAB PO QID for gerd for 30 Days, #60 Prescribed by: TOMAS BAIG MD on 02/14/18 1437 Last Action: Continued on 06/20/182223 by Romero Bland Pantoprazole Sodium (Protonix) 20 Mg Tablet.dr, 1 TAB PO DAILY, #30 (Reported) Entered as Reported by: FREDA SUAREZ on 11/18/172350 Last Action: Converted on 06/20/182223 by oRmero Bland Potassium Chloride (Potassium Chloride) 20 Meq Tablet.er, 20 MEQ PO DAILY for supplement, (Reported) Entered as Reported by: NANCY CHAPMAN on 01/13/182020 Last Action: Converted on 06/20/182223 by Romero Bland Prednisone (Prednisone ) 10 Mg Tablet, 10 MG PO UD for PREDNISONE TAPER, #39 Ref 0 Take 3 tablets by mouth twice a day for 3 days, then take 2 tablets by mouth twice a day for 3 days, then take 1 tablet by mouth twice a day for 3 days, then take 1 tablet by mouth daily x 3 days, then stop. Prescribed by: PATRIA SHIELDS on 06/25/18 0915 Scheduled PRN Acetaminophen (Tylenol) 325 Mg Tablet, 650 MG PO PRN Q4HRS PRN for TEMP OVER 100.4F OR MILD PAIN for 10 Days, #30 Prescribed by: TOMAS BAIG MD on 05/30/18 1645 Guaifenesin (Guaifenesin) 100 Mg/5 Ml Liquid, 200 MG PO PRN Q4HRS PRN for COUGH for 30 Days, #120 Prescribed by: TOMAS BAIG MD on 05/30/18 1645 Last Action: Continued on 06/20/182223 by Romero Bland Tramadol Hcl (Tramadol Hcl) 50 Mg Tablet, 50 MG PO Q6HRS PRN for PAIN, #30 Prescribed by: PATRIA SHIELDS on 06/25/18 0915 Discontinued Medications Prednisone (Prednisone) 20 Mg Tablet, 40 MG PO DAILY for copd, #20 Prescribed by: HERMELINDO RICHARDSON MD on 01/31/18 1251 Last Action: Continued on 06/20/182223 by Romero Bland Tiotropium [place] (Spiriva) 18 Mcg Cap.w.dev, 2 INH IH DAILY, #1 Ref 0 (Reported) Entered as Reported by: IMELDA PENNY on 09/21/152223 Last Action: Discontinued on 06/20/182031 by Romero Bland Patient Instructions Patient Instructions DC < 30 min echo: 05/2018: The Ejection Fraction is >55%. PATRIA SHIELDS MD June 25, 2018 16:10
== END 2018-06-25 13:08 | disposition home health service (06) | DRG 189 ==
LOC: ER 16:16 → 6 SOUTH 17:30
PROVIDERS: ADMIT Internal Medicine; ATTEND Internal Medicine
DX: J96.21 Acute and chronic respiratory failure with hypoxia (principal); I50.32 Chronic diastolic (congestive) heart failure; J96.22 Acute and chronic respiratory failure with hypercapnia; J43.9 Emphysema, unspecified; E87.6 Hypokalemia; F41.9 Anxiety disorder, unspecified; F17.201 Nicotine dependence, unspecified, in remission; K21.0 Gastro-esophageal reflux disease with esophagitis; G47.00 Insomnia, unspecified; E78.5 Hyperlipidemia, unspecified; I11.0 Hypertensive heart disease with heart failure; Z99.81 Dependence on supplemental oxygen; Z88.6 Allergy status to analgesic agent; Z82.49 Family history of ischemic heart disease and other diseases of the circulatory system; Z79.52 Long term (current) use of systemic steroids
CPT/HCPCS: 36415; 71045; 80053; 82550; 82553; 82962; 83880; 84484; 85007; 85025; 93005; 94640; 94760; 96374; J0696; J1815; J1940; J2920; J2930; J7512; J7613; J7620; J7626; J8597; 99285-25

== ENCOUNTER 2018-07-04 16:02 | Inpatient (IN) | payer MEDICARE, MEDICAID ==
[~2018-07-04] VITALS: Ht 180.3 cm; Wt 74.0 kg
[~2018-07-04 16:02] MED LIST changes: +AMOX1TAB61 PO; +FURO40TA4 PO
--- NOTE | 2018-07-04 16:29 | PHYS DOC ---
Past Medical History Past Medical History: Bronchitis, CHF, COPD, Heart Disease, Hypertension, Other Additional Past Medical Histor: EMPHYSEMA-on 3 L NC, "prediabetes" Past Surgical History: Other Additional Past Surgical Histo: HERNIA REPAIR Alcohol Use: None Drug Use: None Adult General Chief Complaint Chief Complaint: SHORTNESS OF BREATH HPI HPI Patient is a 58 year old male with history of CHF, COPD, stopped smoking 5 years ago, and oxygen 3 L at home, hypertension, heart disease, who presents to the ED today complaining of shortness of breath that has been going on since Sunday. Patient states he was seen at [facility] on Sunday was admitted was noted to have blood loss in his lungs, was started on Xarelto. . He states he just got discharged from [facility] today and feels he is having more difficulty breathing hence came back to the ED to be evaluated. Patient denies any fever. Denies any chest pain. He appears to have increased work of breathing. Patient states he no longer smokes. He states he stopped smoking 5 years ago. Review of Systems Review of Systems Constitutional: Denies fever or chills [] Eyes: Denies change in visual acuity, redness, or eye pain [] HENT: Denies nasal congestion or sore throat [] Respiratory: Reports shortness of breath. Denies cough Cardiovascular: No additional information not addressed in HPI [] GI: Denies abdominal pain, nausea, vomiting, bloody stools or diarrhea [] : Denies dysuria or hematuria [] Musculoskeletal: Denies back pain or joint pain [] Integument: Denies rash or skin lesions [] Neurologic: Denies headache, focal weakness or sensory changes [] All other systems were reviewed and found to be within normal limits, except as documented in this note. Current Medications Current Medications Current Medications Medications (Trade) Dose Ordered Sig/Candy Start Time Stop Time Status Last Admin Dose Admin Acetaminophen (Tylenol) 650 mg PRN Q4HRS PRN 07/04/18 17:00 UNV Acetaminophen/ Hydrocodone Bitart (Lortab 5/325) 2 tab 1X ONCE 07/04/18 16:30 07/04/18 16:31 DC 07/04/18 16:54 2 TAB Albuterol/ Ipratropium (Duoneb) 3 ml RTQID 07/04/18 20:00 Atorvastatin Calcium (Lipitor) 10 mg HS 07/04/18 21:00 UNV Ceftriaxone Sodium (Rocephin) 1 gm 1X ONCE 07/04/18 17:15 07/04/18 17:23 DC Fluticasone Propionate (Flonase) 2 spray DAILY 07/05/18 09:00 UNV Furosemide (Lasix) 40 mg DAILY 07/05/18 09:00 UNV Guaifenesin (Robitussin Dm) 10 ml PRN Q6HRS PRN 07/04/18 17:00 UNV Lidocaine (Lidoderm) 1 patch DAILY 07/05/18 09:00 UNV Lorazepam (Ativan) 1 mg BID 07/04/18 21:00 UNV Methylprednisolone Sodium Succinate (SOLU-Medrol 125MG VIAL) 125 mg 1X ONCE 07/04/18 16:30 07/04/18 16:31 DC 07/04/18 16:55 125 MG Metoclopramide HCl (Reglan) 5 mg QIDACHS 07/04/18 18:00 UNV Pantoprazole Sodium (Protonix) 40 mg DAILYAC 07/05/18 07:30 UNV Potassium Chloride (Klor-Con) 20 meq DAILYWBKFT 07/05/18 08:00 UNV Prednisone (Prednisone) 60 mg DAILY 07/05/18 09:00 UNV Rivaroxaban (Xarelto) 15 mg BIDWMEALS 07/05/18 08:00 UNV Sodium Chloride 1,000 ml @ 1,000 mls/hr 1X ONCE 07/04/18 17:15 07/04/18 18:14 Temazepam (Restoril) 7.5 mg PRN QHS PRN 07/04/18 17:15 UNV Tramadol HCl (Ultram) 50 mg PRN Q6HRS PRN 07/04/18 17:00 Vitamin D (Vitamin D3) 5,000 unit DAILY 07/05/18 09:00 UNV Allergies Allergies Allergies Coded Allergies Type Severity Reaction Last Updated Verified acetaminophen Allergy Intermediate TAKES NORCO AT HOME 01/29/18 Yes Physical Exam Physical Exam Constitutional: Well developed, well nourished, no acute distress, non-toxic appearance. [] HENT: Normocephalic, atraumatic, bilateral external ears normal, oropharynx moist, no oral exudates, nose normal. [] Eyes: PERRLA, EOMI, conjunctiva normal, no discharge. [] Neck: Normal range of motion, no tenderness, supple, no stridor. [] Cardiovascular:Heart rate regular rhythm, no murmur [] Lungs & Thorax: Patient arrives in the ED short of breath, on oxygen 3 L. Has increased work of breathing. Abdomen: Bowel sounds normal, soft, no tenderness, no masses, no pulsatile masses. [] Skin: Warm, dry, no erythema, no rash. [] Back: No tenderness, no CVA tenderness. [] Extremities: No tenderness, no cyanosis, no clubbing, ROM intact, no edema. [] Neurologic: Alert and oriented X 3, normal motor function, normal sensory function, no focal deficits noted. [] Psychologic: Affect normal, judgement normal, mood normal. [] Current Patient Data Vital Signs Vital Signs Date Time Temp Pulse Resp B/P (MAP) Pulse Ox O2 Delivery O2 Flow Rate FiO2 07/04/18 17:37 100 BiPAP/CPAP 07/04/18 16:16 4.0 07/04/18 16:05 98.0 127 24 131/82 (98) 98.0 Lab Values Laboratory Tests Test 07/04/18 16:14 07/04/18 16:20 O2 Saturation 89 % (92-99) L Arterial Blood pH 7.42 (7.35-7.45) Arterial Blood pCO2 at Patient Temp 50 mmHg (35-46) H Arterial Blood pO2 at Patient Temp 59 mmHg (65-108) L Arterial Blood HCO3 32 mmol/L (21-28) H Arterial Blood Base Excess 6 mmol/L (-3-3) H Oxyhemoglobin 88.7 % Methemoglobin 0.3 % (0.0-1.9) Carbon Monoxide, Quantitative 0.1 % (0.0-1.9) FiO2 36 White Blood Count 11.8 x10^3/uL (4.0-11.0) H Red Blood Count 4.16 x10^6/uL (4.30-5.70) L Hemoglobin 11.9 g/dL (13.0-17.5) L Hematocrit 36.7 % (39.0-53.0) L Mean Corpuscular Volume 88 fL (79-100) Mean Corpuscular Hemoglobin 29 pg (25-35) Mean Corpuscular Hemoglobin Concent 32 g/dL (31-37) Red Cell Distribution Width 15.6 % (11.5-14.5) H Platelet Count 187 x10^3/uL (140-400) Neutrophils (%) (Auto) 96 % (31-73) H Lymphocytes (%) (Auto) 2 % (24-48) L Monocytes (%) (Auto) 2 % (0-9) Eosinophils (%) (Auto) 0 % (0-3) Basophils (%) (Auto) 0 % (0-3) Neutrophils # (Auto) 11.3 x10^3uL (1.8-7.7) H Lymphocytes # (Auto) 0.2 x10^3/uL (1.0-4.8) L Monocytes # (Auto) 0.2 x10^3/uL (0.0-1.1) Eosinophils # (Auto) 0.0 x10^3/uL (0.0-0.7) Basophils # (Auto) 0.0 x10^3/uL (0.0-0.2) Segmented Neutrophils % 94 % (35-66) H Lymphocytes % 4 % (24-48) L Monocytes % 2 % (0-10) Platelet Estimate Adequate (ADEQUATE) Poikilocytosis Slight Anisocytosis Slight Ovalocytes Occ Prothrombin Time 21.6 SEC (11.7-14.0) H Prothrombin Time INR 1.9 (0.8-1.1) H PTT 34 SEC (24-38) Sodium Level 137 mmol/L (136-145) Potassium Level 4.4 mmol/L (3.5-5.1) Chloride Level 94 mmol/L (98-107) L Carbon Dioxide Level 34 mmol/L (21-32) H Anion Gap 9 (6-14) Blood Urea Nitrogen 20 mg/dL (8-26) Creatinine 1.3 mg/dL (0.7-1.3) Estimated GFR (Cockcroft-Gault) 68.4 BUN/Creatinine Ratio 15 (6-20) Glucose Level 219 mg/dL (70-99) H Lactic Acid Level 4.5 mmol/L (0.4-2.0) *H Calcium Level 9.9 mg/dL (8.5-10.1) Magnesium Level 1.8 mg/dL (1.8-2.4) Total Bilirubin 0.7 mg/dL (0.2-1.0) Aspartate Amino Transferase (AST) 24 U/L (15-37) Alanine Aminotransferase (ALT) 36 U/L (16-63) Alkaline Phosphatase 100 U/L (46-116) Creatine Kinase 131 U/L (39-308) Creatine Kinase MB (Mass) 1.9 ng/mL (0.0-3.6) Creatine Kinase MB Relative Index 1.5 % (0-4) Troponin I Quantitative < 0.017 ng/mL (0.000-0.055) FA-Gkg-H-Type Natriuretic Peptide 61 pg/mL (0-124) Total Protein 7.2 g/dL (6.4-8.2) Albumin 3.6 g/dL (3.4-5.0) Albumin/Globulin Ratio 1.0 (1.0-1.7) Thyroid Stimulating Hormone (TSH) 0.675 uIU/mL (0.358-3.74) Laboratory Tests 07/04/18 16:20 Laboratory Tests 07/04/18 16:20 EKG EKG 16:[address] Casillas sinus tachycardia, HR 120 no STEMI[] Radiology/Procedures Radiology/Procedures []PROCEDURE: PORTABLE CHEST 1V PORTABLE CHEST 1V History: Dyspnea Comparison: June 20, 2018 chest radiograph; chest CT May 30, 2018 Findings: Single view of the chest is submitted. There is no new lobar consolidation, pneumothorax, significant pleural fluid. As seen on CT, there is a right lower lobe spiculated nodule not well visualized radiographically. There is again severe emphysema of the left hemithorax Impression: 1. There is again severe emphysema left, no new lobar consolidation or pleural fluid. 2. There is a right lower lobe pulmonary nodule on CT poorly seen radiographically, CT follow-up recommended as per May 30, 2018 exam. Electronically signed by: Sarah Lew MD (07/04/2018 5:32 PM) [facility] DICTATED and SIGNED BY: SARAH LEW MD DATE: 07/04/18 1739 Course & Med Decision Making Course & Med Decision Making Pertinent Labs and Imaging studies reviewed. (See chart for details) This is a 58-year-old male patient presenting to the ED today for shortness of breath. Patient is well-known to this ED for COPD. He was just discharged from [facility] today after being diagnosed with blood clots in his lungs and was started on Xarelto. Vitals on arrival to the ED temperature 98.0 heart rate 122 respiration 24 on 3 L of oxygen, O2 sats 92%, blood pressure 131/82. On arrival to the ED patient was short of breath and tachycardic. He was put on oxygen 4 L, he uses oxygen 3 L at home. He was given a DuoNeb treatment. Labs are still pending but will follow-up on them. 16:30 Dr. Craft will accepted patient for admission Lactic 4.5, this will be repeated because nursing staff believe this is an issue to do with how they buddy the lab. WBC 11.8, glucose 219 with normal anion gap. Dragon Disclaimer Dragon Disclaimer This electronic medical record was generated, in whole or in part, using a voice recognition dictation system. Departure Departure Impression: Primary Impression: COPD with exacerbation Additional Impressions: Shortness of breath Pulmonary embolism Hyperglycemia Disposition: 09 ADMITTED INPATIENT Condition: STABLE Referrals: UNKNOWN PCP NAME (PCP) Problem Qualifiers Additional Impressions: Pulmonary embolism Pulmonary embolism type: unspecified Chronicity: acute Acute cor pulm onale presence: without acute cor pulmonale Qualified Codes: I26.99 - Other pulmonary embolism without acute cor pulmonale SD JON APRN July 04, 2018 16:29
[2018-07-04] MEDS ORDERED: methylPREDNISolone SOD SUCC PF 125 MG/2 ML VIAL. IV ONE (16:30)
[2018-07-04] MEDS ORDERED: HYDROcodone/APAP 5/325MG 1 TAB TABLET PO ONE (16:30)
[2018-07-04] MEDS ORDERED: IPRATRPIUM/ALBUTEROL 0.5/2.5MG 3 ML NEBU. NEB ONE (16:30)
[2018-07-04 16:36] LABS: BASO % 0 % (0-3); EOS % 0 % (0-3); HEMATOCRIT 36.7 % (39.0-53.0); HEMOGLOBIN 11.9 g/dL (13.0-17.5); LYMPH # 0.2 x10^3/uL (1.0-4.8); LYMPH % 2 % (24-48); MEAN CORPUSCULAR HEMOGLOBIN 29 pg (25-35); MEAN CORPUSCULAR HGB CONC 32 g/dL (31-37); MEAN CORPUSCULAR VOLUME 88 fL (79-100); MONO # 0.2 x10^3/uL (0.0-1.1); MONO % 2 % (0-9); NEUT # 11.3 x10^3uL (1.8-7.7); NEUT % 96 % (31-73); PLATELET COUNT 187 x10^3/uL (140-400); RED BLOOD COUNT 4.16 x10^6/uL (4.30-5.70); RED CELL DISTRIBUTION WIDTH 15.6 % (11.5-14.5); WHITE BLOOD COUNT 11.8 x10^3/uL (4.0-11.0)
[2018-07-04 16:40] LABS: BASE EXCESS COOX 6 mmol/L (-3-3); HCO3 COOX 32 mmol/L (21-28); METHEMOGLOBIN 0.3 % (0.0-1.9); OXYHEMOGLOBIN 88.7 %; PCO2 COOX 50 mmHg (35-46); PO2 COOX 59 mmHg (65-108); SAT O2 COOX 89 % (92-99)
[2018-07-04 16:46] LABS: PROTHROMBIN TIME PATIENT 21.6 SEC (11.7-14.0)
[2018-07-04 16:55] LABS: CALCIUM 9.9 mg/dL (8.5-10.1); CREATININE 1.3 mg/dL (0.7-1.3); GFR 68.4; POTASSIUM 4.4 mmol/L (3.5-5.1)
[2018-07-04] MEDS ORDERED: ACETAMINOPHEN 325 MG TABLET. PO PRN ×2 (17:00→18:30)
[2018-07-04] MEDS ORDERED: guaiFENesin DM 200MG/20MG 10 ML SYRUP PO PRN (17:00)
[2018-07-04 17:01] LABS: ALBUMIN 3.6 g/dL (3.4-5.0); MAGNESIUM 1.8 mg/dL (1.8-2.4); TOTAL BILIRUBIN 0.7 mg/dL (0.2-1.0); TOTAL PROTEIN 7.2 g/dL (6.4-8.2)
--- NOTE | 2018-07-04 17:13 | PDOC1 ---
History and Physical Date of Admission Date of Admission DATE: 07/04/18 TIME: 17:03 Identification/Chief Complaint Chief Complaint S OA Source Source: Caregiver, Chart review, Patient History of Present Illness History of Present Illness Well-known to the hospital because of frequency of admissions because of his end-stage COPD. He is a 58 old -F[place]ish male, not ready for hospice but after my visit today seems to be more open to it. Previous ex-smoker but not anymore. End-stage COPD on home O2. Refuses SNU. Seems to be more open to it after my discussion today. But still verifies to be a full code. All his family or at least son is in [place] and he becomes teary-eyed to me when I ask him about family support. In any case he was just admitted at [facility] last Sunday, discharged today and came back here because of SOA. He was diagnosed with 2 clots - PE in [facility] and started on Xarelto. He has a little bit of minor bleeding in his gums and nose. He has some left conjunctival hemorrhage which is not causing any pain. The rest of the labs still pending. We are admitting, this time I'm consulted palliative and he is agreeable to it. He will think about SNU. I am resuming Xarelto usually 15mg twice a day for 7 days then 20 mg once a day indefinitely. We'll also consult pulmonary. Minimal breath sounds but no significant wheezing, okay for by mouth pred No antibiotics needed at this point Past Medical History Cardiovascular: CHF, HTN, Hyperlipidemia Pulmonary: Asthma, COPD, Pneumonia CENTRAL NERVOUS SYSTEM: Other GI: GERD Heme/Onc: No pertinent hx Hepatobiliary: No pertinent hx Psych: No pertinent hx Musculoskeletal: low back pain, Osteoarthritis Rheumatologic: No pertinent hx Infectious disease: No pertinent hx Renal/: No pertinent hx Endocrine: Diabetes Past Surgical History Past Surgical History: Hernia Repair Family History Family History: Heart Disease, Hypertension Social History Smoke: Quit ALCOHOL: none Drugs: None Current Medications Current Medications Current Medications Albuterol/ Ipratropium (Duoneb) 3 ml 1X ONCE NEB Last administered on 07/04/18at 16:30; Start 07/04/18 at 16:30; Stop 07/04/18 at 16:31; Status DC Methylprednisolone Sodium Succinate (SOLU-Medrol 125MG VIAL) 125 mg 1X ONCE IV Last administered on 07/04/18at 16:55; Start 07/04/18 at 16:30; Stop 07/04/18 at 16:31; Status DC Acetaminophen/ Hydrocodone Bitart (Lortab 5/325) 2 tab 1X ONCE PO Last administered on 07/04/18at 16:54; Start 07/04/18 at 16:30; Stop 07/04/18 at 16:31; Status DC Albuterol/ Ipratropium (Duoneb) 3 ml RTQID NEB ; Start 07/04/18 at 20:00; Status UNV Guaifenesin (Robitussin Dm) 10 ml PRN Q6HRS PRN PO COUGH; Start 07/04/18 at 17:00; Status UNV Acetaminophen (Tylenol) 650 mg PRN Q4HRS PRN PO TEMP OVER 100.4F OR MILD PAIN; Start 07/04/18 at 17:00; Status UNV Atorvastatin Calcium (Lipitor) 10 mg HS PO ; Start 07/04/18 at 21:00; Status UNV Furosemide (Lasix) 40 mg DAILY PO ; Start 07/05/18 at 09:00; Status UNV Lorazepam (Ativan) 1 mg BID PO ; Start 07/04/18 at 21:00; Status UNV Metoclopramide HCl (Reglan) 5 mg QID PO ; Start 07/04/18 at 17:00; Status UNV Tramadol HCl (Ultram) 50 mg Q6HRS PRN PO PAIN; Start 07/04/18 at 17:00; Status UNV Non-Formulary Medication (Cholecalciferol (Vitamin D3) (Vitamin D3)) 5,000 unit DAILY PO ; Start 07/05/18 at 09:00; Status UNV Non-Formulary Medication (Fluticasone Propionate (Flonase Allergy Relief)) 2 sprays DAILY NS ; Start 07/05/18 at 09:00; Status UNV Non-Formulary Medication (Pantoprazole Sodium (Protonix)) 1 tab DAILY PO ; Start 07/05/18 at 09:00; Status UNV Non-Formulary Medication (Potassium Chloride ) 20 meq DAILY PO ; Start 07/05/18 at 09:00; Status UNV Prednisone (Prednisone) 60 mg DAILY PO ; Start 07/05/18 at 09:00; Status UNV Temazepam (Restoril) 7.5 mg PRN QHS PRN PO INSOMNIA; Start 07/04/18 at 17:15; Status UNV Active Scripts Active Augmentin 875-125 Tablet (Amoxicillin/Potassium Clav) 1 Each Tablet 1 Tab PO BID Tramadol Hcl 50 Mg Tablet 50 Mg PO Q6HRS PRN Prednisone (Prednisone) 10 Mg Tablet 10 Mg PO UD Take 3 tablets by mouth twice a day for 3 days, then take 2 tablets by mouth twice a day for 3 days, then take 1 tablet by mouth twice a day for 3 days, then take 1 tablet by mouth daily x 3 days, then stop. Ativan (Lorazepam) 1 Mg Tablet 1 Mg PO BID Guaifenesin 100 Mg/5 Ml Liquid 200 Mg PO PRN Q4HRS PRN 30 Days Tylenol (Acetaminophen) 325 Mg Tablet 650 Mg PO PRN Q4HRS PRN 10 Days Ventolin Hfa Inhaler (Albuterol Sulfate) 18 Gm Hfa.aer.ad 2 Puff INH Q4HRS Reglan (Metoclopramide Hcl) 10 Mg Tablet 0.5 Tab PO QID 30 Days Albuterol Sulfate Neb Soln (Albuterol Sulfate) 2.5 Mg/3 Ml Vial.neb 1 Vial NEB PRN Q4HRS Reported Furosemide 40 Mg Tablet 1 Tab PO DAILY Vitamin D3 (Cholecalciferol (Vitamin D3)) 5,000 Unit Tablet 5,000 Unit PO DAILY Potassium Chloride 20 Meq Tablet.er 20 Meq PO DAILY Protonix (Pantoprazole Sodium) 20 Mg Tablet.dr 1 Tab PO DAILY Flonase Allergy Relief (Fluticasone Propionate) 9.9 Ml [place].susp 2 Sprays NS DAILY Atorvastatin Calcium 10 Mg Tablet 10 Mg PO HS Symbicort 160-4.5 Mcg Inhaler (Budesonide/Formoterol Fumarate) 10.2 Gm Hfa.aer.ad 2 Puff IH BID Allergies Allergies: Coded Allergies: acetaminophen (Verified Allergy, Intermediate, TAKES NORCO AT HOME, 01/29/18) ROS Review of System easily fatigued, weak, chronic SOA, chronic cough, no SOA, epistaxis, subconjunctival hemorrhage, minor gum bleeding Physical Exam General: No acute distress HEENT: Atraumatic, PERRLA, EOMI, Other (left subconjunctival hemorrhage, visible gum bleeds minor) Lungs: Normal air movement, Other (diminished breath sounds, but no crackles, minimal wheezing) Heart: S1S2, RRR, no thrills, no rubs, no gallops, no murmurs Cardiovascular: S1, S2 Abdomen: Normal bowel sounds, Soft, No tenderness, No hepatosplenomegaly, No masses Male Genitals Exam: normal genitalia, normal prostate Rectal Exam: not examined PELVIC: Nml ext genitalia Extremities: No clubbing, No cyanosis, No edema, Normal pulses, No tenderness/swelling Skin: Other (very dry skin, skin atrophy visible from chronic steroid use) Neuro: Normal gait, Normal speech, Strength at 5/5 X4 ext, Normal tone, S ensation intact, Cranial nerves 3-12 NL, Reflexes 2+ Psych/Mental Status: Mental status NL, Mood NL Vitals Vitals Vital Signs Date Time Temp Pulse Resp B/P (MAP) Pulse Ox O2 Delivery O2 Flow Rate FiO2 07/04/18 16:16 91 Nasal Cannula 4.0 07/04/18 16:05 98.0 127 24 131/82 (98) 98.0 Labs Labs Laboratory Tests Test 07/04/18 16:14 07/04/18 16:20 O2 Saturation 89 % (92-99) Arterial Blood pH 7.42 (7.35-7.45) Arterial Blood pCO2 at Patient Temp 50 mmHg (35-46) Arterial Blood pO2 at Patient Temp 59 mmHg (65-108) Arterial Blood HCO3 32 mmol/L (21-28) Arterial Blood Base Excess 6 mmol/L (-3-3) Oxyhemoglobin 88.7 % Methemoglobin 0.3 % (0.0-1.9) Carbon Monoxide, Quantitative 0.1 % (0.0-1.9) FiO2 36 White Blood Count 11.8 x10^3/uL (4.0-11.0) Red Blood Count 4.16 x10^6/uL (4.30-5.70) Hemoglobin 11.9 g/dL (13.0-17.5) Hematocrit 36.7 % (39.0-53.0) Mean Corpuscular Volume 88 fL (79-100) Mean Corpuscular Hemoglobin 29 pg (25-35) Mean Corpuscular Hemoglobin Concent 32 g/dL (31-37) Red Cell Distribution Width 15.6 % (11.5-14.5) Platelet Count 187 x10^3/uL (140-400) Neutrophils (%) (Auto) 96 % (31-73) Lymphocytes (%) (Auto) 2 % (24-48) Monocytes (%) (Auto) 2 % (0-9) Eosinophils (%) (Auto) 0 % (0-3) Basophils (%) (Auto) 0 % (0-3) Neutrophils # (Auto) 11.3 x10^3uL (1.8-7.7) Lymphocytes # (Auto) 0.2 x10^3/uL (1.0-4.8) Monocytes # (Auto) 0.2 x10^3/uL (0.0-1.1) Eosinophils # (Auto) 0.0 x10^3/uL (0.0-0.7) Basophils # (Auto) 0.0 x10^3/uL (0.0-0.2) Prothrombin Time 21.6 SEC (11.7-14.0) Prothromb Time International Ratio 1.9 (0.8-1.1) Activated Partial Thromboplast Time 34 SEC (24-38) Sodium Level 137 mmol/L (136-145) Potassium Level 4.4 mmol/L (3.5-5.1) Chloride Level 94 mmol/L (98-107) Carbon Dioxide Level 34 mmol/L (21-32) Anion Gap 9 (6-14) Blood Urea Nitrogen 20 mg/dL (8-26) Creatinine 1.3 mg/dL (0.7-1.3) Estimated GFR (Cockcroft-Gault) 68.4 BUN/Creatinine Ratio 15 (6-20) Glucose Level 219 mg/dL (70-99) Calcium Level 9.9 mg/dL (8.5-10.1) Magnesium Level 1.8 mg/dL (1.8-2.4) Total Bilirubin 0.7 mg/dL (0.2-1.0) Aspartate Amino Transf (AST/SGOT) 24 U/L (15-37) Alanine Aminotransferase (ALT/SGPT) 36 U/L (16-63) Alkaline Phosphatase 100 U/L (46-116) Troponin I Quantitative < 0.017 ng/mL (0.000-0.055) Total Protein 7.2 g/dL (6.4-8.2) Albumin 3.6 g/dL (3.4-5.0) Albumin/Globulin Ratio 1.0 (1.0-1.7) Laboratory Tests Test 07/04/18 16:14 07/04/18 16:20 O2 Saturation 89 % (92-99) Arterial Blood pH 7.42 (7.35-7.45) Arterial Blood pCO2 at Patient Temp 50 mmHg (35-46) Arterial Blood pO2 at Patient Temp 59 mmHg (65-108) Arterial Blood HCO3 32 mmol/L (21-28) Arterial Blood Base Excess 6 mmol/L (-3-3) Oxyhemoglobin 88.7 % Methemoglobin 0.3 % (0.0-1.9) Carbon Monoxide, Quantitative 0.1 % (0.0-1.9) FiO2 36 White Blood Count 11.8 x10^3/uL (4.0-11.0) Red Blood Count 4.16 x10^6/uL (4.30-5.70) Hemoglobin 11.9 g/dL (13.0-17.5) Hematocrit 36.7 % (39.0-53.0) Mean Corpuscular Volume 88 fL (79-100) Mean Corpuscular Hemoglobin 29 pg (25-35) Mean Corpuscular Hemoglobin Concent 32 g/dL (31-37) Red Cell Distribution Width 15.6 % (11.5-14.5) Platelet Count 187 x10^3/uL (140-400) Neutrophils (%) (Auto) 96 % (31-73) Lymphocytes (%) (Auto) 2 % (24-48) Monocytes (%) (Auto) 2 % (0-9) Eosinophils (%) (Auto) 0 % (0-3) Basophils (%) (Auto) 0 % (0-3) Neutrophils # (Auto) 11.3 x10^3uL (1.8-7.7) Lymphocytes # (Auto) 0.2 x10^3/uL (1.0-4.8) Monocytes # (Auto) 0.2 x10^3/uL (0.0-1.1) Eosinophils # (Auto) 0.0 x10^3/uL (0.0-0.7) Basophils # (Auto) 0.0 x10^3/uL (0.0-0.2) Prothrombin Time 21.6 SEC (11.7-14.0) Prothromb Time International Ratio 1.9 (0.8-1.1) Activated Partial Thromboplast Time 34 SEC (24-38) Sodium Level 137 mmol/L (136-145) Potassium Level 4.4 mmol/L (3.5-5.1) Chloride Level 94 mmol/L (98-107) Carbon Dioxide Level 34 mmol/L (21-32) Anion Gap 9 (6-14) Blood Urea Nitrogen 20 mg/dL (8-26) Creatinine 1.3 mg/dL (0.7-1.3) Estimated GFR (Cockcroft-Gault) 68.4 BUN/Creatinine Ratio 15 (6-20) Glucose Level 219 mg/dL (70-99) Calcium Level 9.9 mg/dL (8.5-10.1) Magnesium Level 1.8 mg/dL (1.8-2.4) Total Bilirubin 0.7 mg/dL (0.2-1.0) Aspartate Amino Transf (AST/SGOT) 24 U/L (15-37) Alanine Aminotransferase (ALT/SGPT) 36 U/L (16-63) Alkaline Phosphatase 100 U/L (46-116) Troponin I Quantitative < 0.017 ng/mL (0.000-0.055) Total Protein 7.2 g/dL (6.4-8.2) Albumin 3.6 g/dL (3.4-5.0) Albumin/Globulin Ratio 1.0 (1.0-1.7) VTE Prophylaxis Ordered VTE Prophylaxis Devices: Yes VTE Pharmacological Prophylaxi: Yes Assessment/Plan Assessment/Plan END Stage COPD, Home O2 dependent Acute hypoxic respiratory failure-recent PE diagnosis at [facility]-started on Xarelto Epistaxis, left subconjunctival hemorrhage from coughing and in the background of OAC use HTN, controlled Full code Depression NOS-second to medical illness Previous [id number] quit long time ago Skin atrophy secondary to chronic steroid use Status candidate Plan Admit 2 midnights Consult palliative- he is open to it now He will reconsider SNU-PTOT Regular diet DuoNeb's, I have reconciled home meds Okay for by mouth Pred for now No need for antibiotics for now He was very teary-eyed emotional to me at the ER which usually he is not MAy consult Pulmo Seen at ER [facility] MD July 04, 2018 17:13
[2018-07-04] MEDS ORDERED: cefTRIAXone IV Push 1 GM VIAL. IVP ONE (17:15)
[2018-07-04] MEDS ORDERED: IV NORMAL SALINE 1000ML BAG 1,000 ML IV ONE ×2 (17:15)
[2018-07-04 17:28] LABS: % LYMPHS 4 % (24-48); % MONOS 2 % (0-10); % SEGS 94 % (35-66)
[2018-07-04 17:29] LABS: ANISOCYTOSIS SLIGHT; OVALOCYTES OCC; PLT ESTIMATE ADEQUATE (ADEQUATE); POIKILOCYTOSIS SLIGHT
--- NOTE | 2018-07-04 17:36 | RAD ---
PORTABLE CHEST 1V History: Dyspnea Comparison: June 20, 2018 chest radiograph; chest CT May 30, 2018 Findings: Single view of the chest is submitted. There is no new lobar consolidation, pneumothorax, significant pleural fluid. As seen on CT, there is a right lower lobe spiculated nodule not well visualized radiographically. There is again severe emphysema of the left hemithorax Impression: 1. There is again severe emphysema left, no new lobar consolidation or pleural fluid. 2. There is a right lower lobe pulmonary nodule on CT poorly seen radiographically, CT follow-up recommended as per May 30, 2018 exam. Electronically signed by: Nehemias Kingsley MD (07/04/2018 5:32 PM) [facility]
[2018-07-04 18:04] LABS: BILIRUBIN,URINE NEGATIVE (NEG); CLARITY,URINE TURBID; COLOR,URINE YELLOW; NITRITE,URINE NEGATIVE (NEG); PROTEIN,URINE NEGATIVE (NEG-TRACE); UROBILINOGEN,URINE 0.2 mg/dL (0.2 mg/dL)
[2018-07-04 18:15] LABS: BACTERIA,URINE FEW /HPF (0-FEW); RBC,URINE OCC /HPF (0-2); SQUAMOUS EPITHELIAL CELL,UR FEW /LPF; WBC,URINE OCC /HPF (0-4)
[2018-07-04 18:16] LABS: HYALINE CASTS, URINE FEW /HPF
[2018-07-04] MEDS ORDERED: ONDANSETRON PF 4 MG/2 ML VIAL. IV PRN (18:30)
[2018-07-04] MEDS ORDERED: MORPHINE SULFATE 2 MG/ML VIAL. IV PRN (18:30)
[2018-07-04] MEDS: IPRATRPIUM/ALBUTEROL 0.5/2.5MG 3 ML NEBU. NEB SCH (19:47)
[2018-07-04] MEDS ORDERED: IPRATRPIUM/ALBUTEROL 0.5/2.5MG 3 ML NEBU. NEB SCH (20:00)
[2018-07-04] MEDS: METOCLOPRAMIDE 10 MG TABLET. PO SCH ×2 (20:03→21:25)
[2018-07-04 20:55] VITALS: BP 144/80
[2018-07-04] MEDS: ATORVASTATIN CALCIUM 10 MG TABLET. PO SCH (21:25)
[2018-07-04] MEDS: RIVAROXABAN 15 MG TABLET. PO SCH (21:25)
[2018-07-04] MEDS: LORazepam 1 MG TABLET PO SCH (21:25)
--- NOTE | 2018-07-04 21:52 | NUR ---
The patient, KAYLA JONES, 58 y/o, M admitted by RAI D[facility] MD, was given written information regarding hospital policies, unit procedures and contact persons. Valuables were checked and left in room with patient. Patient resting in bed, call light in reach, vitals stable, will continue to monitor.
[2018-07-04 23:46] VITALS: BP 148/88
[2018-07-05] MEDS: traMADol 50 MG TABLET PO PRN ×3 (00:02→19:02)
[2018-07-05 03:42] VITALS: BP 130/90
--- NOTE | 2018-07-05 06:23 | EKG ---
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
[2018-07-05 07:00] VITALS: BP 112/78
[2018-07-05] MEDS: IPRATRPIUM/ALBUTEROL 0.5/2.5MG 3 ML NEBU. NEB SCH ×4 (07:20→19:10)
[2018-07-05] MEDS: RIVAROXABAN 15 MG TABLET. PO SCH ×2 (08:11→17:13)
[2018-07-05] MEDS: LORazepam 1 MG TABLET PO SCH ×2 (08:11→21:21)
[2018-07-05] MEDS: predniSONE 20 MG TABLET PO SCH (08:11)
[2018-07-05] MEDS: POTASSIUM CHLORIDE 20 MEQ TABLET.ER. PO SCH (08:12)
[2018-07-05] MEDS: CHOLECALCIFEROL (VITAMIN D3) 5,000 UNIT CAPSULE PO SCH (08:12)
[2018-07-05] MEDS: FUROSEMIDE 40 MG TABLET. PO SCH (08:12)
[2018-07-05] MEDS: PANTOPRAZOLE 40 MG TABLET.DR. PO SCH (08:12)
[2018-07-05] MEDS: METOCLOPRAMIDE 10 MG TABLET. PO SCH ×4 (08:13→21:21)
[2018-07-05] MEDS: LIDOCAINE (700MG/PATCH) PATCH. TD SCH (08:13)
[2018-07-05] MEDS: FLUTICASONE 50MCG/NASAL SPRAY 16GM BOTTLE. NS SCH (08:16)
[2018-07-05] MEDS: ANTI-COAG MONITOR BY PHARMACY. MC PRN (09:41)
--- NOTE | 2018-07-05 10:50 | PDOC2 ---
PALLIATIVE CARE Palliative Care Note Palliative Care Consult requested by Dr. Craft to address code status and hospice. 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 sitting up on edge of bed. non-productive cough. is able to speak in sentences. States he was walking to his sister house when he become SOB and had to call for ambulance. States he is not a candidate for lung transplant. Discussed Code Status; Requests Full code. Not interested in comfort care discussion now. may consider later. If SNU were recommended he would consider. "Just too many things are coming at me now" Plan: Full Code. Continue current treatment plan Is open to more discussion later. LAXMI LOBATO July 05, 2018 10:50
[2018-07-05 11:00] VITALS: BP 139/97
--- NOTE | 2018-07-05 11:19 | PDOC ---
[employer] PROGRESS NOTE Chief Complaint Chief Complaint Stage COPD, end stage. 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 History of Present Illness History of Present Illness Patient seen and examined Patient states he is considering SNU, previously had been opposed On 4L NC in NAD Recent PE dx at [facility] Last Sat, 2 clots Vitals Vitals Vital Signs Date Time Temp Pulse Resp B/P (MAP) Pulse Ox O2 Delivery O2 Flow Rate FiO2 07/05/18 09:10 22 97 Nasal Cannula 4.0 07/05/18 03:42 98.0 96 130/90 (103) 98.0 Physical Exam General: Alert, Oriented X3, Cooperative, No acute distress Lungs: Other (difuse crakles, wheezes more apparent on L) Abdomen: Normal bowel sounds, Soft, No tenderness, No hepatosplenomegaly, No masses Extremities: No clubbing, No cyanosis, No edema, Normal pulses, No tenderness/swelling Skin: Other (very dry skin, skin atrophy visible from chronic steroid use) Labs Labs: Laboratory Tests Test 07/04/18 16:14 07/04/18 16:20 07/04/18 17:45 07/04/18 18:00 O2 Saturation 89 % (92-99) Arterial Blood pH 7.42 (7.35-7.45) Arterial Blood pCO2 at Patient Temp 50 mmHg (35-46) Arterial Blood pO2 at Patient Temp 59 mmHg (65-108) Arterial Blood HCO3 32 mmol/L (21-28) Arterial Blood Base Excess 6 mmol/L (-3-3) Oxyhemoglobin 88.7 % Methemoglobin 0.3 % (0.0-1.9) Carbon Monoxide, Quantitative 0.1 % (0.0-1.9) FiO2 36 White Blood Count 11.8 x10^3/uL (4.0-11.0) Red Blood Count 4.16 x10^6/uL (4.30-5.70) Hemoglobin 11.9 g/dL (13.0-17.5) Hematocrit 36.7 % (39.0-53.0) Mean Corpuscular Volume 88 fL (79-100) Mean Corpuscular Hemoglobin 29 pg (25-35) Mean Corpuscular Hemoglobin Concent 32 g/dL (31-37) Red Cell Distribution Width 15.6 % (11.5-14.5) Platelet Count 187 x10^3/uL (140-400) Neutrophils (%) (Auto) 96 % (31-73) Lymphocytes (%) (Auto) 2 % (24-48) Monocytes (%) (Auto) 2 % (0-9) Eosinophils (%) (Auto) 0 % (0-3) Basophils (%) (Auto) 0 % (0-3) Neutrophils # (Auto) 11.3 x10^3uL (1.8-7.7) Lymphocytes # (Auto) 0.2 x10^3/uL (1.0-4.8) Monocytes # (Auto) 0.2 x10^3/uL (0.0-1.1) Eosinophils # (Auto) 0.0 x10^3/uL (0.0-0.7) Basophils # (Auto) 0.0 x10^3/uL (0.0-0.2) Segmented Neutrophils % 94 % (35-66) Lymphocytes % 4 % (24-48) Monocytes % 2 % (0-10) Platelet Estimate Adequate (ADEQUATE) Poikilocytosis Slight Anisocytosis Slight Ovalocytes Occ Prothrombin Time 21.6 SEC (11.7-14.0) Prothromb Time International Ratio 1.9 (0.8-1.1) Activated Partial Thromboplast Time 34 SEC (24-38) Sodium Level 137 mmol/L (136-145) Potassium Level 4.4 mmol/L (3.5-5.1) Chloride Level 94 mmol/L (98-107) Carbon Dioxide Level 34 mmol/L (21-32) Anion Gap 9 (6-14) Blood Urea Nitrogen 20 mg/dL (8-26) Creatinine 1.3 mg/dL (0.7-1.3) Estimated GFR (Cockcroft-Gault) 68.4 BUN/Creatinine Ratio 15 (6-20) Glucose Level 219 mg/dL (70-99) Lactic Acid Level 4.5 mmol/L (0.4-2.0) 4.0 mmol/L (0.4-2.0) Calcium Level 9.9 mg/dL (8.5-10.1) Magnesium Level 1.8 mg/dL (1.8-2.4) Total Bilirubin 0.7 mg/dL (0.2-1.0) Aspartate Amino Transf (AST/SGOT) 24 U/L (15-37) Alanine Aminotransferase (ALT/SGPT) 36 U/L (16-63) Alkaline Phosphatase 100 U/L (46-116) Creatine Kinase 131 U/L (39-308) Creatine Kinase MB (Mass) 1.9 ng/mL (0.0-3.6) Creatine Kinase MB Relative Index 1.5 % (0-4) Troponin I Quantitative < 0.017 ng/mL (0.000-0.055) AZ-Zgz-M-Type Natriuretic Peptide 61 pg/mL (0-124) Total Protein 7.2 g/dL (6.4-8.2) Albumin 3.6 g/dL (3.4-5.0) Albumin/Globulin Ratio 1.0 (1.0-1.7) Thyroid Stimulating Hormone (TSH) 0.675 uIU/mL (0.358-3.74) Urine Collection Type Void Urine Color Yellow Urine Clarity Turbid Urine pH 6.0 Urine Specific [place] 1.015 Urine Protein Negative mg/dL (NEG-TRACE) Urine Glucose (UA) 250 mg/dL (NEG) Urine Ketones (Stick) Negative mg/dL (NEG) Urine Blood Negative (NEG) Urine Nitrite Negative (NEG) Urine Bilirubin Negative (NEG) Urine Urobilinogen Dipstick 0.2 mg/dL (0.2 mg/dL) Urine Leukocyte Esterase Negative (NEG) Urine RBC Occ /HPF (0-2) Urine WBC Occ /HPF (0-4) Urine Squamous Epithelial Cells Few /LPF Urine Bacteria Few /HPF (0-FEW) Urine Hyaline Casts Few /HPF Urine Mucus Slight /LPF Review of Systems Review of Systems Patient denies LE swelling Patient SORIANO Assessment and Plan Assessmemt and Plan Problems Medical Problems: (1) COPD with exacerbation Status: Acute (2) Hyperglycemia Status: Acute (3) Pulmonary embolism Status: Acute (4) Shortness of breath Status: Acute Assessment: Stage COPD, end stage. 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 Labs Laboratory Tests Test 07/04/18 16:14 07/04/18 16:20 07/04/18 17:45 07/04/18 18:00 O2 Saturation 89 % (92-99) Arterial Blood pH 7.42 (7.35-7.45) Arterial Blood pCO2 at Patient Temp 50 mmHg (35-46) Arterial Blood pO2 at Patient Temp 59 mmHg (65-108) Arterial Blood HCO3 32 mmol/L (21-28) Arterial Blood Base Excess 6 mmol/L (-3-3) Oxyhemoglobin 88.7 % Methemoglobin 0.3 % (0.0-1.9) Carbon Monoxide, Quantitative 0.1 % (0.0-1.9) FiO2 36 White Blood Count 11.8 x10^3/uL (4.0-11.0) Red Blood Count 4.16 x10^6/uL (4.30-5.70) Hemoglobin 11.9 g/dL (13.0-17.5) Hematocrit 36.7 % (39.0-53.0) Mean Corpuscular Volume 88 fL (79-100) Mean Corpuscular Hemoglobin 29 pg (25-35) Mean Corpuscular Hemoglobin Concent 32 g/dL (31-37) Red Cell Distribution Width 15.6 % (11.5-14.5) Platelet Count 187 x10^3/uL (140-400) Neutrophils (%) (Auto) 96 % (31-73) Lymphocytes (%) (Auto) 2 % (24-48) Monocytes (%) (Auto) 2 % (0-9) Eosinophils (%) (Auto) 0 % (0-3) Basophils (%) (Auto) 0 % (0-3) Neutrophils # (Auto) 11.3 x10^3uL (1.8-7.7) Lymphocytes # (Auto) 0.2 x10^3/uL (1.0-4.8) Monocytes # (Auto) 0.2 x10^3/uL (0.0-1.1) Eosinophils # (Auto) 0.0 x10^3/uL (0.0-0.7) Basophils # (Auto) 0.0 x10^3/uL (0.0-0.2) Segmented Neutrophils % 94 % (35-66) Lymphocytes % 4 % (24-48) Monocytes % 2 % (0-10) Platelet Estimate Adequate (ADEQUATE) Poikilocytosis Slight Anisocytosis Slight Ovalocytes Occ Prothrombin Time 21.6 SEC (11.7-14.0) Prothromb Time International Ratio 1.9 (0.8-1.1) Activated Partial Thromboplast Time 34 SEC (24-38) Sodium Level 137 mmol/L (136-145) Potassium Level 4.4 mmol/L (3.5-5.1) Chloride Level 94 mmol/L (98-107) Carbon Dioxide Level 34 mmol/L (21-32) Anion Gap 9 (6-14) Blood Urea Nitrogen 20 mg/dL (8-26) Creatinine 1.3 mg/dL (0.7-1.3) Estimated GFR (Cockcroft-Gault) 68.4 BUN/Creatinine Ratio 15 (6-20) Glucose Level 219 mg/dL (70-99) Lactic Acid Level 4.5 mmol/L (0.4-2.0) 4.0 mmol/L (0.4-2.0) Calcium Level 9.9 mg/dL (8.5-10.1) Magnesium Level 1.8 mg/dL (1.8-2.4) Total Bilirubin 0.7 mg/dL (0.2-1.0) Aspartate Amino Transf (AST/SGOT) 24 U/L (15-37) Alanine Aminotransferase (ALT/SGPT) 36 U/L (16-63) Alkaline Phosphatase 100 U/L (46-116) Creatine Kinase 131 U/L (39-308) Creatine Kinase MB (Mass) 1.9 ng/mL (0.0-3.6) Creatine Kinase MB Relative Index 1.5 % (0-4) Troponin I Quantitative < 0.017 ng/mL (0.000-0.055) BG-Snq-G-Type Natriuretic Peptide 61 pg/mL (0-124) Total Protein 7.2 g/dL (6.4-8.2) Albumin 3.6 g/dL (3.4-5.0) Albumin/Globulin Ratio 1.0 (1.0-1.7) Thyroid Stimulating Hormone (TSH) 0.675 uIU/mL (0.358-3.74) Urine Collection Type Void Urine Color Yellow Urine Clarity Turbid Urine pH 6.0 Urine Specific [place] 1.015 Urine Protein Negative mg/dL (NEG-TRACE) Urine Glucose (UA) 250 mg/dL (NEG) Urine Ketones (Stick) Negative mg/dL (NEG) Urine Blood Negative (NEG) Urine Nitrite Negative (NEG) Urine Bilirubin Negative (NEG) Urine Urobilinogen Dipstick 0.2 mg/dL (0.2 mg/dL) Urine Leukocyte Esterase Negative (NEG) Urine RBC Occ /HPF (0-2) Urine WBC Occ /HPF (0-4) Urine Squamous Epithelial Cells Few /LPF Urine Bacteria Few /HPF (0-FEW) Urine Hyaline Casts Few /HPF Urine Mucus Slight /LPF Laboratory Tests Test 07/04/18 16:14 07/04/18 16:20 07/04/18 17:45 07/04/18 18:00 O2 Saturation 89 % (92-99) Arterial Blood pH 7.42 (7.35-7.45) Arterial Blood pCO2 at Patient Temp 50 mmHg (35-46) Arterial Blood pO2 at Patient Temp 59 mmHg (65-108) Arterial Blood HCO3 32 mmol/L (21-28) Arterial Blood Base Excess 6 mmol/L (-3-3) Oxyhemoglobin 88.7 % Methemoglobin 0.3 % (0.0-1.9) Carbon Monoxide, Quantitative 0.1 % (0.0-1.9) FiO2 36 White Blood Count 11.8 x10^3/uL (4.0-11.0) Red Blood Count 4.16 x10^6/uL (4.30-5.70) Hemoglobin 11.9 g/dL (13.0-17.5) Hematocrit 36.7 % (39.0-53.0) Mean Corpuscular Volume 88 fL (79-100) Mean Corpuscular Hemoglobin 29 pg (25-35) Mean Corpuscular Hemoglobin Concent 32 g/dL (31-37) Red Cell Distribution Width 15.6 % (11.5-14.5) Platelet Count 187 x10^3/uL (140-400) Neutrophils (%) (Auto) 96 % (31-73) Lymphocytes (%) (Auto) 2 % (24-48) Monocytes (%) (Auto) 2 % (0-9) Eosinophils (%) (Auto) 0 % (0-3) Basophils (%) (Auto) 0 % (0-3) Neutrophils # (Auto) 11.3 x10^3uL (1.8-7.7) Lymphocytes # (Auto) 0.2 x10^3/uL (1.0-4.8) Monocytes # (Auto) 0.2 x10^3/uL (0.0-1.1) Eosinophils # (Auto) 0.0 x10^3/uL (0.0-0.7) Basophils # (Auto) 0.0 x10^3/uL (0.0-0.2) Segmented Neutrophils % 94 % (35-66) Lymphocytes % 4 % (24-48) Monocytes % 2 % (0-10) Platelet Estimate Adequate (ADEQUATE) Poikilocytosis Slight Anisocytosis Slight Ovalocytes Occ Prothrombin Time 21.6 SEC (11.7-14.0) Prothromb Time International Ratio 1.9 (0.8-1.1) Activated Partial Thromboplast Time 34 SEC (24-38) Sodium Level 137 mmol/L (136-145) Potassium Level 4.4 mmol/L (3.5-5.1) Chloride Level 94 mmol/L (98-107) Carbon Dioxide Level 34 mmol/L (21-32) Anion Gap 9 (6-14) Blood Urea Nitrogen 20 mg/dL (8-26) Creatinine 1.3 mg/dL (0.7-1.3) Estimated GFR (Cockcroft-Gault) 68.4 BUN/Creatinine Ratio 15 (6-20) Glucose Level 219 mg/dL (70-99) Lactic Acid Level 4.5 mmol/L (0.4-2.0) 4.0 mmol/L (0.4-2.0) Calcium Level 9.9 mg/dL (8.5-10.1) Magnesium Level 1.8 mg/dL (1.8-2.4) Total Bilirubin 0.7 mg/dL (0.2-1.0) Aspartate Amino Transf (AST/SGOT) 24 U/L (15-37) Alanine Aminotransferase (ALT/SGPT) 36 U/L (16-63) Alkaline Phosphatase 100 U/L (46-116) Creatine Kinase 131 U/L (39-308) Creatine Kinase MB (Mass) 1.9 ng/mL (0.0-3.6) Creatine Kinase MB Relative Index 1.5 % (0-4) Troponin I Quantitative < 0.017 ng/mL (0.000-0.055) JN-Dhz-O-Type Natriuretic Peptide 61 pg/mL (0-124) Total Protein 7.2 g/dL (6.4-8.2) Albumin 3.6 g/dL (3.4-5.0) Albumin/Globulin Ratio 1.0 (1.0-1.7) Thyroid Stimulating Hormone (TSH) 0.675 uIU/mL (0.358-3.74) Urine Collection Type Void Urine Color Yellow Urine Clarity Turbid Urine pH 6.0 Urine Specific [place] 1.015 Urine Protein Negative mg/dL (NEG-TRACE) Urine Glucose (UA) 250 mg/dL (NEG) Urine Ketones (Stick) Negative mg/dL (NEG) Urine Blood Negative (NEG) Urine Nitrite Negative (NEG) Urine Bilirubin Negative (NEG) Urine Urobilinogen Dipstick 0.2 mg/dL (0.2 mg/dL) Urine Leukocyte Esterase Negative (NEG) Urine RBC Occ /HPF (0-2) Urine WBC Occ /HPF (0-4) Urine Squamous Epithelial Cells Few /LPF Urine Bacteria Few /HPF (0-FEW) Urine Hyaline Casts Few /HPF Urine Mucus Slight /LPF Medications Current Medications Albuterol/ Ipratropium (Duoneb) 3 ml 1X ONCE NEB Last administered on 07/04/18at 16:30; Start 07/04/18 at 16:30; Stop 07/04/18 at 16:31; Status DC Methylprednisolone Sodium Succinate (SOLU-Medrol 125MG VIAL) 125 mg 1X ONCE IV Last administered on 07/04/18at 16:55; Start 07/04/18 at 16:30; Stop 07/04/18 at 16:31; Status DC Acetaminophen/ Hydrocodone Bitart (Lortab 5/325) 2 tab 1X ONCE PO Last administered on 07/04/18at 16:54; Start 07/04/18 at 16:30; Stop 07/04/18 at 16:31; Status DC Albuterol/ Ipratropium (Duoneb) 3 ml RTQID NEB Last administered on 07/05/18 07:20; Start 07/04/18 at 20:00 Guaifenesin (Robitussin Dm) 10 ml PRN Q6HRS PRN PO COUGH; Start 07/04/18 at 17:00 Acetaminophen (Tylenol) 650 mg PRN Q4HRS PRN PO TEMP OVER 100.4F OR MILD PAIN; Start 07/04/18 at 17:00; Status UNV Atorvastatin Calcium (Lipitor) 10 mg HS PO Last administered on 07/04/18 21:25; Start 07/04/18 at 21:00 Furosemide (Lasix) 40 mg DAILY PO Last administered on 07/05/18 08:12; Start 07/05/18 at 09:00 Lorazepam (Ativan) 1 mg BID PO Last administered on 07/05/18 08:11; Start 07/04/18 at 21:00 Metoclopramide HCl (Reglan) 5 mg QIDACHS PO Last administered on 07/05/18 08:13; Start 07/04/18 at 18:00 Tramadol HCl (Ultram) 50 mg PRN Q6HRS PRN PO PAIN Last administered on 07/05/18 08:12; Start 07/04/18 at 17:00 Vitamin D (Vitamin D3) 5,000 unit DAILY PO Last administered on 07/05/18 08:12; Start 07/05/18 at 09:00 Fluticasone Propionate (Flonase) 2 spray DAILY NS ; Start 07/05/18 at 09:00 Pantoprazole Sodium (Protonix) 40 mg DAILYAC PO Last administered on 07/05/18 08:12; Start 07/05/18 at 07:30 Potassium Chloride (Klor-Con) 20 meq DAILYWBKFT PO Last administered on 07/05/18 08:12; Start 07/05/18 at 08:00 Prednisone (Prednisone) 60 mg DAILY PO Last administered on 07/05/18 08:11; Start 07/05/18 at 09:00 Temazepam (Restoril) 7.5 mg PRN QHS PRN PO INSOMNIA; Start 07/04/18 at 17:15 Lidocaine (Lidoderm) 1 patch DAILY TD Last administered on 07/05/18 08:13; Start 07/05/18 at 09:00 Rivaroxaban (Xarelto) 15 mg BIDWMEALS PO Last administered on 07/05/18at 08:11; Start 07/04/18 at 21:00 Sodium Chloride 1,000 ml @ 1,000 mls/hr 1X ONCE IV Last administered on 07/04/18at 18:35; Start 07/04/18 at 17:15; Stop 07/04/18 at 18:14; Status DC Sodium Chloride 1,000 ml @ 1,000 mls/hr 1X ONCE IV Last administered on 07/04/18at 20:05; Start 07/04/18 at 17:15; Stop 07/04/18 at 18:14; Status DC Ceftriaxone Sodium (Rocephin) 1 gm 1X ONCE IVP Last administered on 07/04/18at 20:21; Start 07/04/18 at 17:15; Stop 07/04/18 at 17:23; Status DC Ondansetron HCl (Zofran) 4 mg PRN Q8HRS PRN IV NAUSEA/VOMITING; Start 07/04/18 at 18:30; Stop 07/05/18 at 18:29 Morphine Sulfate (Morphine Sulfate) 2 mg PRN Q2HR PRN IV PAIN; Start 07/04/18 at 18:30; Stop 07/05/18 at 18:29 Acetaminophen (Tylenol) 650 mg PRN Q4HRS PRN PO FEVER; Start 07/04/18 at 18:30; Stop 07/05/18 at 18:29 Albuterol/ Ipratropium (Duoneb) 3 ml RTQID NEB ; Start 07/04/18 at 20:00; Stop 07/05/18 at 19:59; Status UNV Info (Anti-Coagulation Monitoring By Pharmacy) 1 each PRN DAILY PRN MC SEE COMMENTS Last administered on 07/05/18at 09:41; Start 07/04/18 at 20:45 Active Scripts Active Augmentin 875-125 Tablet (Amoxicillin/Potassium Clav) 1 Each Tablet 1 Tab PO BID Tramadol Hcl 50 Mg Tablet 50 Mg PO Q6HRS PRN Prednisone (Prednisone) 10 Mg Tablet 10 Mg PO UD Take 3 tablets by mouth twice a day for 3 days, then take 2 tablets by mouth twice a day for 3 days, then take 1 tablet by mouth twice a day for 3 days, then take 1 tablet by mouth daily x 3 days, then stop. Ativan (Lorazepam) 1 Mg Tablet 1 Mg PO BID Guaifenesin 100 Mg/5 Ml Liquid 200 Mg PO PRN Q4HRS PRN 30 Days Tylenol (Acetaminophen) 325 Mg Tablet 650 Mg PO PRN Q4HRS PRN 10 Days Ventolin Hfa Inhaler (Albuterol Sulfate) 18 Gm Hfa.aer.ad 2 Puff INH Q4HRS Reglan (Metoclopramide Hcl) 10 Mg Tablet 0.5 Tab PO QID 30 Days Albuterol Sulfate Neb Soln (Albuterol Sulfate) 2.5 Mg/3 Ml Vial.neb 1 Vial NEB PRN Q4HRS Reported Furosemide 40 Mg Tablet 1 Tab PO DAILY Vitamin D3 (Cholecalciferol (Vitamin D3)) 5,000 Unit Tablet 5,000 Unit PO DAILY Potassium Chloride 20 Meq Tablet.er 20 Meq PO DAILY Protonix (Pantoprazole Sodium) 20 Mg Tablet.dr 1 Tab PO DAILY Flonase Allergy Relief (Fluticasone Propionate) 9.9 Ml [place].susp 2 Sprays NS DAILY Atorvastatin Calcium 10 Mg Tablet 10 Mg PO HS Symbicort 160-4.5 Mcg Inhaler (Budesonide/Formoterol Fumarate) 10.2 Gm Hfa.aer.ad 2 Puff IH BID Vitals/I & O Vital Sign - Last 24 Hours 07/04/18 07/04/18 07/04/18 07/04/18 16:05 16:16 16:30 16:49 Temp 98.0 98.0 Pulse 127 128 Resp 24 24 B/P (MAP) 131/82 (98) 131/82 (98) Pulse Ox 92 91 95 89 O2 Delivery Nasal Cannula Nasal Cannula Nasal Cannula BiPAP/CPAP O2 Flow Rate 3.0 4.0 4.0 07/04/18 07/04/18 07/04/18 07/04/18 17:00 17:30 17:37 18:00 Pulse 116 103 101 Resp 23 24 24 B/P (MAP) 112/72 (85) 103/77 (86) 124/87 (99) Pulse Ox 98 98 100 98 O2 Delivery BiPAP/CPAP BiPAP/CPAP BiPAP/CPAP BiPAP/CPAP 07/04/18 07/04/18 07/04/18 07/04/18 18:30 19:00 19:30 19:45 Pulse 99 101 90 Resp 22 B/P (MAP) 114/80 (91) 116/82 (93) 119/89 (99) Pulse Ox 98 96 100 96 O2 Delivery BiPAP/CPAP Nasal Cannula Nasal Cannula Nasal Cannula O2 Flow Rate 4.0 4.0 4.0 07/04/18 07/04/18 07/04/18 07/04/18 20:00 20:30 20:55 21:00 Temp 98.1 98.1 Pulse 106 Resp 17 17 24 38 B/P (MAP) 118/80 (93) 107/77 (87) 144/80 (101) 119/88 (98) Pulse Ox 100 100 98 99 O2 Delivery Nasal Cannula Nasal Cannula Nasal Cannula Nasal Cannula O2 Flow Rate 4.0 4.0 4.0 4.0 07/04/18 07/04/18 07/05/18 07/05/18 21:29 23:46 00:02 03:42 Temp 97.9 98.0 97.9 98.0 Pulse 109 96 Resp 16 B/P (MAP) 148/88 (108) 130/90 (103) Pulse Ox 97 98 O2 Delivery Nasal Cannula Nasal Cannula Nasal Cannula Nasal Cannula O2 Flow Rate 4.0 4.0 4.0 4.0 07/05/18 07/05/18 07/05/18 07/05/18 07:25 08:00 08:12 09:10 Resp 22 Pulse Ox 97 97 97 O2 Delivery Nasal Cannula Nasal Cannula Nasal Cannula Nasal Cannula O2 Flow Rate 4.0 4.0 4.0 4.0 Intake and Output 07/04/18 07/04/18 07/05/18 15:00 23:00 07:00 Intake Total 480 ml Balance 480 ml CASTLE,NIAL K III DO July 05, 2018 11:19
--- NOTE | 2018-07-05 14:16 | NUR ---
SS following for discharge planning. SS reviewed pt's chart. Pt is from home with family and requires oxygen. PT/OT recommended [facility]. SS met with pt to discuss discharge planning and [facility]. Pt reported that he has oxygen set up at home with [employer]. Pt reported that he would be agreeable to [facility] unit. SS discussed options. Pt chose [facility], ; fax [phone]. SS phoned and faxed referrals. SS will await acceptance decision and will proceed accordingly.
--- NOTE | 2018-07-05 14:58 | RAD ---
Thoracic spine-limited, lateral view, 07/05/2018: HISTORY: Back pain, possible fracture Lateral views of the thoracic spine were obtained as requested. There is spurring in the lower drastic spine. The lower thoracic vertebral bodies are not clearly defined due to obliquity related to the patient's known scoliosis. No definite fracture or subluxation is evident on this limited exam. Electronically signed by: Ciro Becerra MD (07/05/2018 2:56 PM) [facility]
[2018-07-05 15:00] VITALS: BP 118/71
[2018-07-05 19:43] VITALS: BP 130/83
[2018-07-05] MEDS: ATORVASTATIN CALCIUM 10 MG TABLET. PO SCH (21:21)
[2018-07-05] MEDS: DOXYCYCLINE HYCLATE 100 MG TABLET PO SCH (21:21)
[2018-07-05] MEDS: TEMAZEPAM 7.5 MG CAPSULE PO PRN (21:23)
[2018-07-05 23:12] VITALS: BP 114/75
--- NOTE | 2018-07-05 23:57 | CONS ---
DATE OF CONSULTATION: 07/05/2018 ATTENDING PHYSICIAN: Dr. Craft. The patient was seen at the request of Dr. Craft for rehab evaluation. HISTORY OF PRESENT ILLNESS: This is a 58-year-old right-handed male known to me. The patient with end-stage chronic obstructive pulmonary disease, uses oxygen by nasal cannula usually around 3 liters per minute. The patient lives with his family. The patient has stairs to climb, to go down to the basement where washer and dryer are located. The patient with known congestive heart failure, hypertension, hyperlipidemia, asthmatic bronchitis, previous pneumonia, gastroesophageal reflux disease, chronic back pain, osteoarthritis, diabetes mellitus, status post hernia repair. FAMILY HISTORY: Heart disease and hypertension. ALLERGIES: KNOWN ALLERGIC TO ACETAMINOPHEN. The patient quit smoking. The patient admits to some radiation of the mid back pain to the anterior chest wall. The patient admits to some numbness, tingling in his feet. PHYSICAL EXAMINATION: Today revealed a middle-aged male. He is alert, oriented to time, place, person and circumstance and follows commands appropriately, moves all 4 extremities voluntarily. He is using oxygen by nasal cannula. He is walking around using his oxygen cart. He had painful limited movements of thoracic spine with tenderness to palpation over mid thoracic paraspinal muscles. Straight leg raising test is negative bilaterally. He had muscle atrophy involving thenar eminence muscles with deformity of both thumbs. Negative Tinel sign over median nerve at the wrist and over ulnar nerve at the wrist and elbow. Overall, he had 4+/5 grade muscle strength. Deep tendon reflexes are absent at right knee and left ankle. He is independent with bed mobility, transfers and up walking. He is not using proper body mechanics during mobility. He is using oxygen by nasal cannula. He had somewhat atrophied skin. ASSESSMENT: A middle-aged male with chronic obstructive pulmonary disease with recent exacerbation, chronic mid back pain to rule out associated compression fractures with thoracic radiculitis, diabetes mellitus, hypertension, congestive heart failure, hyperlipidemia and gastroesophageal reflux disease. RECOMMENDATIONS: Agree with the plan for physical therapy and occupational therapy. He can benefit from roller walker with seat rest and breaks for use at home. Dr. Craft, I appreciate asking me to participate in the care of this interesting patient. I will be glad to follow him with you as needed for the rehabilitation. SHELLY GOOD MD DR: DARLENE/efarin JOB#: [id number] / [id number]
--- NOTE | 2018-07-06 00:17 | CONS ---
DATE OF CONSULTATION: REASON FOR CONSULTATION: The patient is seen in Pulmonary consultation at the request of Dr. Hathaway for increasing shortness of air. HISTORY OF PRESENT ILLNESS: The patient is a 58-year-old male with a history of COPD, quit tobacco 5 years ago. He is well known to our service. He has severe emphysema along with a large bulla. He has been evaluated in the past for bullectomy, but he was deemed not a surgical candidate. He has also been evaluated for lung transplant. The patient presented with increasing shortness of breath. He was at [facility] last Sunday, admitted and had a pulmonary embolism. He was started on Xarelto. He was discharged from [facility] and presented here with increasing shortness of air. He underwent a chest x-ray revealing evidence of emphysema, possibly right lower lobe pulmonary nodule. The patient is currently coughing up some mucus mixed in with blood. No fever, chills or night sweats. PAST MEDICAL HISTORY: Chronic respiratory failure, COPD, bullous emphysema, recent PE, chronic bronchitis and hypertension. The patient has had an alpha-1 antitrypsin in the past, which was negative. PAST SURGICAL HISTORY: No recent surgeries. ALLERGIES: TO ACETAMINOPHEN. REVIEW OF SYSTEMS: CONSTITUTIONAL: No fever or chills. EYES: No change in visual acuity. HEENT: No nasal congestion or sore throat. PULMONARY: As indicated above. CARDIOVASCULAR: No chest pain or pressure. GASTROINTESTINAL: No nausea, vomiting or diarrhea. GENITOURINARY: No dysuria or frequency. MUSCULOSKELETAL: Chronic back pain. SKIN: No new skin rashes. NEUROLOGIC: No headaches. MEDICATIONS: Current medication list was reviewed. FAMILY HISTORY: No family history of early emphysema. PHYSICAL EXAMINATION: VITAL SIGNS: On examination, he was in no respiratory distress, currently on 4 liters. HEENT: Eyes, the sclerae were nonicteric. NECK: Jugular venous distention was not elevated. LUNGS: Coarse breath sounds, expiratory wheeze. CARDIOVASCULAR EXAMINATION: Regular rate and rhythm with S1, S2. No S3. ABDOMEN: Soft, nontender and nondistended. EXTREMITIES: No clubbing, cyanosis or edema. NEUROLOGIC: The patient was awake, alert and following commands. A detailed neuro exam was not performed. LABORATORY DATA: White count was 11,000. Arterial blood gas revealed a pH of 7.42, PaCO2 of 50 and pO2 of 59. INR was 1.9. Lactic acid level was slightly elevated. IMPRESSION: 1. [id number] hypoxemic hypercapnic respiratory failure. 2. Acute exacerbation of chronic obstructive pulmonary disease. 3. Recent pulmonary embolism diagnosed at [facility] approximately a week ago. The patient presented on Xarelto. 4. Epistaxis and left subconjunctival hemorrhage, resulting from cough and increased pressure. 5. Hypertension. 6. Depression. 7. Tobacco dependence, in remission. PLAN: 1. We will continue current steroids. 2. Oxygen supplementation. 3. Xarelto. 4. Doxycycline for acute nonspecific bronchitis. I do appreciate the privilege in sharing in the patient's care. SCOTT COOK MD DR: MAVERICK/efrain JOB#: [id number] / [id number]
[2018-07-06 03:48] VITALS: BP 116/73
[2018-07-06] MEDS: traMADol 50 MG TABLET PO PRN ×3 (05:26→21:29)
[2018-07-06 07:00] VITALS: BP 148/82
--- NOTE | 2018-07-06 07:39 | PDOC ---
PULMONARY PROGRESS NOTES Subjective sob slightly better, has cough, has back pain Vitals Vital Signs Date Time Temp Pulse Resp B/P (MAP) Pulse Ox O2 Delivery O2 Flow Rate FiO2 07/06/18 05:26 24 Nasal Cannula 3.0 07/06/18 03:48 98.1 92 116/73 (87) 93 98.1 ROS: No Nausea General: Alert, No acute distress HEENT: Other (nc at perrl ) Lungs: Wheezing, Other (difuse crakles, wheezes more apparent on L) Cardiovascular: S1, S2 Abdomen: Soft, Non-tender Neuro Exam: Alert Extremities: No Edema, Other Skin: Warm Labs Laboratory Tests Test 07/04/18 16:14 07/04/18 16:20 07/04/18 17:45 07/04/18 18:00 O2 Saturation 89 % (92-99) Arterial Blood pH 7.42 (7.35-7.45) Arterial Blood pCO2 at Patient Temp 50 mmHg (35-46) Arterial Blood pO2 at Patient Temp 59 mmHg (65-108) Arterial Blood HCO3 32 mmol/L (21-28) Arterial Blood Base Excess 6 mmol/L (-3-3) Oxyhemoglobin 88.7 % Methemoglobin 0.3 % (0.0-1.9) Carbon Monoxide, Quantitative 0.1 % (0.0-1.9) FiO2 36 White Blood Count 11.8 x10^3/uL (4.0-11.0) Red Blood Count 4.16 x10^6/uL (4.30-5.70) Hemoglobin 11.9 g/dL (13.0-17.5) Hematocrit 36.7 % (39.0-53.0) Mean Corpuscular Volume 88 fL (79-100) Mean Corpuscular Hemoglobin 29 pg (25-35) Mean Corpuscular Hemoglobin Concent 32 g/dL (31-37) Red Cell Distribution Width 15.6 % (11.5-14.5) Platelet Count 187 x10^3/uL (140-400) Neutrophils (%) (Auto) 96 % (31-73) Lymphocytes (%) (Auto) 2 % (24-48) Monocytes (%) (Auto) 2 % (0-9) Eosinophils (%) (Auto) 0 % (0-3) Basophils (%) (Auto) 0 % (0-3) Neutrophils # (Auto) 11.3 x10^3uL (1.8-7.7) Lymphocytes # (Auto) 0.2 x10^3/uL (1.0-4.8) Monocytes # (Auto) 0.2 x10^3/uL (0.0-1.1) Eosinophils # (Auto) 0.0 x10^3/uL (0.0-0.7) Basophils # (Auto) 0.0 x10^3/uL (0.0-0.2) Segmented Neutrophils % 94 % (35-66) Lymphocytes % 4 % (24-48) Monocytes % 2 % (0-10) Platelet Estimate Adequate (ADEQUATE) Poikilocytosis Slight Anisocytosis Slight Ovalocytes Occ Prothrombin Time 21.6 SEC (11.7-14.0) Prothromb Time International Ratio 1.9 (0.8-1.1) Activated Partial Thromboplast Time 34 SEC (24-38) Sodium Level 137 mmol/L (136-145) Potassium Level 4.4 mmol/L (3.5-5.1) Chloride Level 94 mmol/L (98-107) Carbon Dioxide Level 34 mmol/L (21-32) Anion Gap 9 (6-14) Blood Urea Nitrogen 20 mg/dL (8-26) Creatinine 1.3 mg/dL (0.7-1.3) Estimated GFR (Cockcroft-Gault) 68.4 BUN/Creatinine Ratio 15 (6-20) Glucose Level 219 mg/dL (70-99) Lactic Acid Level 4.5 mmol/L (0.4-2.0) 4.0 mmol/L (0.4-2.0) Calcium Level 9.9 mg/dL (8.5-10.1) Magnesium Level 1.8 mg/dL (1.8-2.4) Total Bilirubin 0.7 mg/dL (0.2-1.0) Aspartate Amino Transf (AST/SGOT) 24 U/L (15-37) Alanine Aminotransferase (ALT/SGPT) 36 U/L (16-63) Alkaline Phosphatase 100 U/L (46-116) Creatine Kinase 131 U/L (39-308) Creatine Kinase MB (Mass) 1.9 ng/mL (0.0-3.6) Creatine Kinase MB Relative Index 1.5 % (0-4) Troponin I Quantitative < 0.017 ng/mL (0.000-0.055) BF-Lje-K-Type Natriuretic Peptide 61 pg/mL (0-124) Total Protein 7.2 g/dL (6.4-8.2) Albumin 3.6 g/dL (3.4-5.0) Albumin/Globulin Ratio 1.0 (1.0-1.7) Thyroid Stimulating Hormone (TSH) 0.675 uIU/mL (0.358-3.74) Urine Collection Type Void Urine Color Yellow Urine Clarity Turbid Urine pH 6.0 Urine Specific [place] 1.015 Urine Protein Negative mg/dL (NEG-TRACE) Urine Glucose (UA) 250 mg/dL (NEG) Urine Ketones (Stick) Negative mg/dL (NEG) Urine Blood Negative (NEG) Urine Nitrite Negative (NEG) Urine Bilirubin Negative (NEG) Urine Urobilinogen Dipstick 0.2 mg/dL (0.2 mg/dL) Urine Leukocyte Esterase Negative (NEG) Urine RBC Occ /HPF (0-2) Urine WBC Occ /HPF (0-4) Urine Squamous Epithelial Cells Few /LPF Urine Bacteria Few /HPF (0-FEW) Urine Hyaline Casts Few /HPF Urine Mucus Slight /LPF Medications Active Scripts Medications Dose Route/Sig Max Daily Dose Days Date Category Dose Instructions Augmentin 875-125 Tablet (Amoxicillin/Potassium Clav) 1 Each Tablet 1 Tab PO BID 06/25/18 Rx Tramadol Hcl 50 Mg Tablet 50 Mg PO Q6HRS PRN 06/25/18 Rx Prednisone (Prednisone) 10 Mg Tablet 10 Mg PO UD 06/25/18 Rx Take 3 tablets by mouth twice a day for 3 days, then take 2 tablets by mouth twice a day for 3 days, then take 1 tablet by mouth twice a day for 3 days, then take 1 tablet by mouth daily x 3 days, then stop. Furosemide 40 Mg Tablet 1 Tab PO DAILY 06/20/18 Reported Ativan (Lorazepam) 1 Mg Tablet 1 Mg PO BID 06/15/18 Rx Guaifenesin 100 Mg/5 Ml Liquid 200 Mg PO PRN Q4HRS PRN 30 05/30/18 Rx Tylenol (Acetaminophen) 325 Mg Tablet 650 Mg PO PRN Q4HRS PRN 10 05/30/18 Rx Ventolin Hfa Inhaler (Albuterol Sulfate) 18 Gm Hfa.aer.ad 2 Puff INH Q4HRS 05/10/18 Rx Vitamin D3 (Cholecalciferol (Vitamin D3)) 5,000 Unit Tablet 5,000 Unit PO DAILY 03/15/18 Reported Reglan (Metoclopramide Hcl) 10 Mg Tablet 0.5 Tab PO QID 30 02/14/18 Rx Potassium Chloride 20 Meq Tablet.er 20 Meq PO DAILY 01/13/18 Reported Protonix (Pantoprazole Sodium) 20 Mg Tablet.dr 1 Tab PO DAILY 11/18/17 Reported Flonase Allergy Relief (Fluticasone Propionate) 9.9 Ml [place].susp 2 Sprays NS DAILY 11/18/17 Reported Atorvastatin Calcium 10 Mg Tablet 10 Mg PO HS 08/21/17 Reported Albuterol Sulfate Neb Soln (Albuterol Sulfate) 2.5 Mg/3 Ml Vial.neb 1 Vial NEB PRN Q4HRS 07/10/17 Rx Symbicort 160-4.5 Mcg Inhaler (Budesonide/Formoterol Fumarate) 10.2 Gm Hfa.aer.ad 2 Puff IH BID 09/21/15 Reported Comments reviewed, 05/30/18 ct 1. Severe emphysema with a prominent bullous component on the left. 2. Chronic pleural/parenchymal scarring. 3. New small spiculated opacity in the right lower lobe which may be inflammatory or neoplastic. CT follow-up is suggested. Impression . IMPRESSION: 1. Twjef-vp-umxyowo hypoxemic hypercapnic respiratory failure. 2. Acute exacerbation of chronic obstructive pulmonary disease. 3. Recent pulmonary embolism diagnosed at [facility] approximately a week ago. The patient presented on Xarelto. 4. Epistaxis and left subconjunctival hemorrhage, resulting from cough and increased pressure. resolved 5. Hypertension. 6. Depression. 7. Tobacco dependence, in remission. 8. abnl ct of chest, rll density Plan . PLAN: 1. cont prednisone 60 mg daily, no dose change still wheezing 2. Oxygen supplementation. 3. Xarelto. 4. Doxycycline for acute nonspecific bronchitis. 5. 05/30/18 ct showed rll denity, need fu ct 6. BD discussed w pt TAMAR RING MD July 06, 2018 07:39
[2018-07-06 07:41] LABS: BASO % 1 % (0-3); EOS % 0 % (0-3); HEMATOCRIT 30.2 % (39.0-53.0); LYMPH # 0.3 x10^3/uL (1.0-4.8); LYMPH % 4 % (24-48); MEAN CORPUSCULAR HEMOGLOBIN 29 pg (25-35); MEAN CORPUSCULAR HGB CONC 33 g/dL (31-37); MEAN CORPUSCULAR VOLUME 88 fL (79-100); MONO # 0.4 x10^3/uL (0.0-1.1); MONO % 6 % (0-9); NEUT # 6.2 x10^3uL (1.8-7.7); NEUT % 90 % (31-73); PLATELET COUNT 136 x10^3/uL (140-400); RED BLOOD COUNT 3.43 x10^6/uL (4.30-5.70); RED CELL DISTRIBUTION WIDTH 15.4 % (11.5-14.5); WHITE BLOOD COUNT 6.9 x10^3/uL (4.0-11.0)
[2018-07-06] MEDS: IPRATRPIUM/ALBUTEROL 0.5/2.5MG 3 ML NEBU. NEB SCH ×4 (07:46→20:00)
[2018-07-06 08:00] LABS: CALCIUM 8.8 mg/dL (8.5-10.1); CREATININE 0.8 mg/dL (0.7-1.3); GFR 119.7; POTASSIUM 3.7 mmol/L (3.5-5.1)
[2018-07-06] MEDS: DOXYCYCLINE HYCLATE 100 MG TABLET PO SCH ×2 (08:35→21:24)
[2018-07-06] MEDS: LORazepam 1 MG TABLET PO SCH ×2 (08:35→21:24)
[2018-07-06] MEDS: FUROSEMIDE 40 MG TABLET. PO SCH (08:35)
[2018-07-06] MEDS: POTASSIUM CHLORIDE 20 MEQ TABLET.ER. PO SCH (08:35)
[2018-07-06] MEDS: METOCLOPRAMIDE 10 MG TABLET. PO SCH ×4 (08:35→21:24)
[2018-07-06] MEDS: RIVAROXABAN 15 MG TABLET. PO SCH ×2 (08:35→17:10)
[2018-07-06] MEDS: PANTOPRAZOLE 40 MG TABLET.DR. PO SCH (08:35)
[2018-07-06] MEDS: CHOLECALCIFEROL (VITAMIN D3) 5,000 UNIT CAPSULE PO SCH (08:35)
[2018-07-06] MEDS: FLUTICASONE 50MCG/NASAL SPRAY 16GM BOTTLE. NS SCH (08:36)
[2018-07-06] MEDS: predniSONE 20 MG TABLET PO SCH (08:36)
[2018-07-06] MEDS: LIDOCAINE (700MG/PATCH) PATCH. TD SCH (08:36)
--- NOTE | 2018-07-06 10:55 | PDOC ---
PROGRESS NOTES Subjective Subjective He admits continued mid back pain. Objective Objective Vital Signs Date Time Temp Pulse Resp B/P (MAP) Pulse Ox O2 Delivery O2 Flow Rate FiO2 07/06/18 07:48 100 Nasal Cannula 2.0 07/06/18 07:00 97.8 95 16 148/82 (104) 97.8 Intake and Output 07/06/18 07:00 Intake Total 900 ml Output Total 1740 ml Balance -840 ml Intake Oral 900 ml Output Urine Total 1740 ml # Voids 1 Physical Exam Physical Exam He is supine in bed and using oxygen by nasal canula and continues with tenderness to palpation over lower thoracic paraspinal muscles. Assessment Assessment Problems Medical Problems: (1) COPD with exacerbation Status: Acute (2) Hyperglycemia Status: Acute (3) Pulmonary embolism Status: Acute (4) Shortness of breath Status: Acute Plan Plan of Care To obtain ct thoracic spine to rule out any pathology. Comment Review of Relevant I have reviewed the following items franki (where applicable) has been applied. Labs Laboratory Tests Test 07/04/18 16:14 07/04/18 16:20 07/04/18 17:45 07/04/18 18:00 O2 Saturation 89 % (92-99) Arterial Blood pH 7.42 (7.35-7.45) Arterial Blood pCO2 at Patient Temp 50 mmHg (35-46) Arterial Blood pO2 at Patient Temp 59 mmHg (65-108) Arterial Blood HCO3 32 mmol/L (21-28) Arterial Blood Base Excess 6 mmol/L (-3-3) Oxyhemoglobin 88.7 % Methemoglobin 0.3 % (0.0-1.9) Carbon Monoxide, Quantitative 0.1 % (0.0-1.9) FiO2 36 White Blood Count 11.8 x10^3/uL (4.0-11.0) Red Blood Count 4.16 x10^6/uL (4.30-5.70) Hemoglobin 11.9 g/dL (13.0-17.5) Hematocrit 36.7 % (39.0-53.0) Mean Corpuscular Volume 88 fL (79-100) Mean Corpuscular Hemoglobin 29 pg (25-35) Mean Corpuscular Hemoglobin Concent 32 g/dL (31-37) Red Cell Distribution Width 15.6 % (11.5-14.5) Platelet Count 187 x10^3/uL (140-400) Neutrophils (%) (Auto) 96 % (31-73) Lymphocytes (%) (Auto) 2 % (24-48) Monocytes (%) (Auto) 2 % (0-9) Eosinophils (%) (Auto) 0 % (0-3) Basophils (%) (Auto) 0 % (0-3) Neutrophils # (Auto) 11.3 x10^3uL (1.8-7.7) Lymphocytes # (Auto) 0.2 x10^3/uL (1.0-4.8) Monocytes # (Auto) 0.2 x10^3/uL (0.0-1.1) Eosinophils # (Auto) 0.0 x10^3/uL (0.0-0.7) Basophils # (Auto) 0.0 x10^3/uL (0.0-0.2) Segmented Neutrophils % 94 % (35-66) Lymphocytes % 4 % (24-48) Monocytes % 2 % (0-10) Platelet Estimate Adequate (ADEQUATE) Poikilocytosis Slight Anisocytosis Slight Ovalocytes Occ Prothrombin Time 21.6 SEC (11.7-14.0) Prothromb Time International Ratio 1.9 (0.8-1.1) Activated Partial Thromboplast Time 34 SEC (24-38) Sodium Level 137 mmol/L (136-145) Potassium Level 4.4 mmol/L (3.5-5.1) Chloride Level 94 mmol/L (98-107) Carbon Dioxide Level 34 mmol/L (21-32) Anion Gap 9 (6-14) Blood Urea Nitrogen 20 mg/dL (8-26) Creatinine 1.3 mg/dL (0.7-1.3) Estimated GFR (Cockcroft-Gault) 68.4 BUN/Creatinine Ratio 15 (6-20) Glucose Level 219 mg/dL (70-99) Lactic Acid Level 4.5 mmol/L (0.4-2.0) 4.0 mmol/L (0.4-2.0) Calcium Level 9.9 mg/dL (8.5-10.1) Magnesium Level 1.8 mg/dL (1.8-2.4) Total Bilirubin 0.7 mg/dL (0.2-1.0) Aspartate Amino Transf (AST/SGOT) 24 U/L (15-37) Alanine Aminotransferase (ALT/SGPT) 36 U/L (16-63) Alkaline Phosphatase 100 U/L (46-116) Creatine Kinase 131 U/L (39-308) Creatine Kinase MB (Mass) 1.9 ng/mL (0.0-3.6) Creatine Kinase MB Relative Index 1.5 % (0-4) Troponin I Quantitative < 0.017 ng/mL (0.000-0.055) FL-Leq-A-Type Natriuretic Peptide 61 pg/mL (0-124) Total Protein 7.2 g/dL (6.4-8.2) Albumin 3.6 g/dL (3.4-5.0) Albumin/Globulin Ratio 1.0 (1.0-1.7) Thyroid Stimulating Hormone (TSH) 0.675 uIU/mL (0.358-3.74) Urine Collection Type Void Urine Color Yellow Urine Clarity Turbid Urine pH 6.0 Urine Specific [place] 1.015 Urine Protein Negative mg/dL (NEG-TRACE) Urine Glucose (UA) 250 mg/dL (NEG) Urine Ketones (Stick) Negative mg/dL (NEG) Urine Blood Negative (NEG) Urine Nitrite Negative (NEG) Urine Bilirubin Negative (NEG) Urine Urobilinogen Dipstick 0.2 mg/dL (0.2 mg/dL) Urine Leukocyte Esterase Negative (NEG) Urine RBC Occ /HPF (0-2) Urine WBC Occ /HPF (0-4) Urine Squamous Epithelial Cells Few /LPF Urine Bacteria Few /HPF (0-FEW) Urine Hyaline Casts Few /HPF Urine Mucus Slight /LPF Test 07/06/18 07:04 White Blood Count 6.9 x10^3/uL (4.0-11.0) Red Blood Count 3.43 x10^6/uL (4.30-5.70) Hemoglobin 10.0 g/dL (13.0-17.5) Hematocrit 30.2 % (39.0-53.0) Mean Corpuscular Volume 88 fL (79-100) Mean Corpuscular Hemoglobin 29 pg (25-35) Mean Corpuscular Hemoglobin Concent 33 g/dL (31-37) Red Cell Distribution Width 15.4 % (11.5-14.5) Platelet Count 136 x10^3/uL (140-400) Neutrophils (%) (Auto) 90 % (31-73) Lymphocytes (%) (Auto) 4 % (24-48) Monocytes (%) (Auto) 6 % (0-9) Eosinophils (%) (Auto) 0 % (0-3) Basophils (%) (Auto) 1 % (0-3) Neutrophils # (Auto) 6.2 x10^3uL (1.8-7.7) Lymphocytes # (Auto) 0.3 x10^3/uL (1.0-4.8) Monocytes # (Auto) 0.4 x10^3/uL (0.0-1.1) Eosinophils # (Auto) 0.0 x10^3/uL (0.0-0.7) Basophils # (Auto) 0.0 x10^3/uL (0.0-0.2) Sodium Level 141 mmol/L (136-145) Potassium Level 3.7 mmol/L (3.5-5.1) Chloride Level 103 mmol/L (98-107) Carbon Dioxide Level 34 mmol/L (21-32) Anion Gap 4 (6-14) Blood Urea Nitrogen 15 mg/dL (8-26) Creatinine 0.8 mg/dL (0.7-1.3) Estimated GFR (Cockcroft-Gault) 119.7 Glucose Level 128 mg/dL (70-99) Calcium Level 8.8 mg/dL (8.5-10.1) Laboratory Tests Test 07/06/18 07:04 White Blood Count 6.9 x10^3/uL (4.0-11.0) Red Blood Count 3.43 x10^6/uL (4.30-5.70) Hemoglobin 10.0 g/dL (13.0-17.5) Hematocrit 30.2 % (39.0-53.0) Mean Corpuscular Volume 88 fL (79-100) Mean Corpuscular Hemoglobin 29 pg (25-35) Mean Corpuscular Hemoglobin Concent 33 g/dL (31-37) Red Cell Distribution Width 15.4 % (11.5-14.5) Platelet Count 136 x10^3/uL (140-400) Neutrophils (%) (Auto) 90 % (31-73) Lymphocytes (%) (Auto) 4 % (24-48) Monocytes (%) (Auto) 6 % (0-9) Eosinophils (%) (Auto) 0 % (0-3) Basophils (%) (Auto) 1 % (0-3) Neutrophils # (Auto) 6.2 x10^3uL (1.8-7.7) Lymphocytes # (Auto) 0.3 x10^3/uL (1.0-4.8) Monocytes # (Auto) 0.4 x10^3/uL (0.0-1.1) Eosinophils # (Auto) 0.0 x10^3/uL (0.0-0.7) Basophils # (Auto) 0.0 x10^3/uL (0.0-0.2) Sodium Level 141 mmol/L (136-145) Potassium Level 3.7 mmol/L (3.5-5.1) Chloride Level 103 mmol/L (98-107) Carbon Dioxide Level 34 mmol/L (21-32) Anion Gap 4 (6-14) Blood Urea Nitrogen 15 mg/dL (8-26) Creatinine 0.8 mg/dL (0.7-1.3) Estimated GFR (Cockcroft-Gault) 119.7 Glucose Level 128 mg/dL (70-99) Calcium Level 8.8 mg/dL (8.5-10.1) Microbiology 07/05/18 Blood Culture - Preliminary, Resulted NO GROWTH AFTER 1 DAY Medications Current Medications Albuterol/ Ipratropium (Duoneb) 3 ml 1X ONCE NEB Last administered on 07/04/18at 16:30; Start 07/04/18 at 16:30; Stop 07/04/18 at 16:31; Status DC Methylprednisolone Sodium Succinate (SOLU-Medrol 125MG VIAL) 125 mg 1X ONCE IV Last administered on 07/04/18at 16:55; Start 07/04/18 at 16:30; Stop 07/04/18 at 16:31; Status DC Acetaminophen/ Hydrocodone Bitart (Lortab 5/325) 2 tab 1X ONCE PO Last administered on 07/04/18at 16:54; Start 07/04/18 at 16:30; Stop 07/04/18 at 16 :31; Status DC Albuterol/ Ipratropium (Duoneb) 3 ml RTQID NEB Last administered on 07/06/18 07:46; Start 07/04/18 at 20:00 Guaifenesin (Robitussin Dm) 10 ml PRN Q6HRS PRN PO COUGH; Start 07/04/18 at 17:00 Acetaminophen (Tylenol) 650 mg PRN Q4HRS PRN PO TEMP OVER 100.4F OR MILD PAIN; Start 07/04/18 at 17:00; Status UNV Atorvastatin Calcium (Lipitor) 10 mg HS PO Last administered on 07/05/18 21:21; Start 07/04/18 at 21:00 Furosemide (Lasix) 40 mg DAILY PO Last administered on 07/06/18 08:35; Start 07/05/18 at 09:00 Lorazepam (Ativan) 1 mg BID PO Last administered on 07/06/18 08:35; Start 07/04/18 at 21:00 Metoclopramide HCl (Reglan) 5 mg QIDACHS PO Last administered on 07/06/18 08:35; Start 07/04/18 at 18:00 Tramadol HCl (Ultram) 50 mg PRN Q6HRS PRN PO PAIN Last administered on 07/06/18 05:26; Start 07/04/18 at 17:00 Vitamin D (Vitamin D3) 5,000 unit DAILY PO Last administered on 07/06/18 08:35; Start 07/05/18 at 09:00 Fluticasone Propionate (Flonase) 2 spray DAILY NS Last administered on 06/13 08:36; Start 07/05/18 at 09:00 Pantoprazole Sodium (Protonix) 40 mg DAILYAC PO Last administered on 07/06/18 08:35; Start 07/05/18 at 07:30 Potassium Chloride (Klor-Con) 20 meq [id number] PO Last administered on 07/06/18 08:35; Start 07/05/18 at 08:00 Prednisone (Prednisone) 60 mg DAILY PO Last administered on 07/06/18 08:36; Start 07/05/18 at 09:00 Temazepam (Restoril) 7.5 mg PRN QHS PRN PO INSOMNIA Last administered on 07/05/18 21:23; Start 07/04/18 at 17:15 Lidocaine (Lidoderm) 1 patch DAILY TD Last administered on 07/06/18 08:36; Start 07/05/18 at 09:00 Rivaroxaban (Xarelto) 15 mg BIDWMEALS PO Last administered on 07/06/18 08:35; Start 07/04/18 at 21:00 Sodium Chloride 1,000 ml @ 1,000 mls/hr 1X ONCE IV Last administered on 07/04/18at 18:35; Start 07/04/18 at 17:15; Stop 07/04/18 at 18:14; Status DC Sodium Chloride 1,000 ml @ 1,000 mls/hr 1X ONCE IV Last administered on 07/04/18at 20:05; Start 07/04/18 at 17:15; Stop 07/04/18 at 18:14; Status DC Ceftriaxone Sodium (Rocephin) 1 gm 1X ONCE IVP Last administered on 07/04/18 20:21; Start 07/04/18 at 17:15; Stop 07/04/18 at 17:23; Status DC Ondansetron HCl (Zofran) 4 mg PRN Q8HRS PRN IV NAUSEA/VOMITING; Start 07/04/18 at 18:30; Stop 07/05/18 at 18:29; Status DC Morphine Sulfate (Morphine Sulfate) 2 mg PRN Q2HR PRN IV PAIN; Start 07/04/18 at 18:30; Stop 07/05/18 at 18:29; Status DC Acetaminophen (Tylenol) 650 mg PRN Q4HRS PRN PO FEVER; Start 07/04/18 at 18:30; Stop 07/05/18 at 18:29; Status DC Albuterol/ Ipratropium (Duoneb) 3 ml RTQID NEB ; Start 07/04/18 at 20:00; Stop 07/05/18 at 19:59; Status UNV Info (Anti-Coagulation Monitoring By Pharmacy) 1 each PRN DAILY PRN MC SEE COMMENTS Last administered on 07/05/18at 09:41; Start 07/04/18 at 20:45 Doxycycline Hyclate (Vibra-Tab) 100 mg BID PO Last administered on 07/06/18 08:35; Start 07/05/18 at 21:00 Active Scripts Active Augmentin 875-125 Tablet (Amoxicillin/Potassium Clav) 1 Each Tablet 1 Tab PO BID Tramadol Hcl 50 Mg Tablet 50 Mg PO Q6HRS PRN Prednisone (Prednisone) 10 Mg Tablet 10 Mg PO UD Take 3 tablets by mouth twice a day for 3 days, then take 2 tablets by mouth twice a day for 3 days, then take 1 tablet by mouth twice a day for 3 days, then take 1 tablet by mouth daily x 3 days, then stop. Ativan (Lorazepam) 1 Mg Tablet 1 Mg PO BID Guaifenesin 100 Mg/5 Ml Liquid 200 Mg PO PRN Q4HRS PRN 30 Days Tylenol (Acetaminophen) 325 Mg Tablet 650 Mg PO PRN Q4HRS PRN 10 Days Ventolin Hfa Inhaler (Albuterol Sulfate) 18 Gm Hfa.aer.ad 2 Puff INH Q4HRS Reglan (Metoclopramide Hcl) 10 Mg Tablet 0.5 Tab PO QID 30 Days Albuterol Sulfate Neb Soln (Albuterol Sulfate) 2.5 Mg/3 Ml Vial.neb 1 Vial NEB PRN Q4HRS Reported Furosemide 40 Mg Tablet 1 Tab PO DAILY Vitamin D3 (Cholecalciferol (Vitamin D3)) 5,000 Unit Tablet 5,000 Unit PO DAILY Potassium Chloride 20 Meq Tablet.er 20 Meq PO DAILY Protonix (Pantoprazole Sodium) 20 Mg Tablet.dr 1 Tab PO DAILY Flonase Allergy Relief (Fluticasone Propionate) 9.9 Ml [place].susp 2 Sprays NS DAILY Atorvastatin Calcium 10 Mg Tablet 10 Mg PO HS Symbicort 160-4.5 Mcg Inhaler (Budesonide/Formoterol Fumarate) 10.2 Gm Hf a.aer.ad 2 Puff IH BID Vitals/I & O Vital Sign - Last 24 Hours 07/05/18 07/05/18 07/05/18 07/05/18 11:00 11:24 15:00 15:17 Temp 98.0 97.9 98.0 97.9 Pulse 88 93 Resp B/P (MAP) 139/97 (111) 118/71 (87) Pulse Ox 97 97 97 O2 Delivery Room Air Nasal Cannula Room Air Nasal Cannula O2 Flow Rate 4.0 4.0 07/05/18 07/05/18 07/05/18 07/05/18 19:02 19:12 19:43 20:00 Temp 98.8 98.8 Pulse 115 Resp 22 B/P (MAP) 130/83 (99) Pulse Ox 97 100 97 O2 Delivery Nasal Cannula Nasal Cannula Nasal Cannula Nasal Cannula O2 Flow Rate 4.0 4.0 3.0 3.0 07/05/18 07/06/18 07/06/18 07/06/18 23:12 03:48 05:26 07:00 Temp 98.5 98.1 97.8 98.5 98.1 97.8 Pulse 100 92 95 Resp 20 18 24 16 B/P (MAP) 114/75 (88) 116/73 (87) 148/82 (104) Pulse Ox 98 93 99 O2 Delivery Nasal Cannula Nasal Cannula Nasal Cannula Nasal Cannula O2 Flow Rate 3.0 3.0 3.0 4.0 07/06/18 07:48 Pulse Ox 100 O2 Delivery Nasal Cannula O2 Flow Rate 2.0 Intake and Output 07/05/18 07/05/18 07/06/18 15:00 23:00 07:00 Intake Total 400 ml 300 ml 200 ml Output Total 790 ml 625 ml 325 ml Balance -390 ml -325 ml -125 ml SHELLY GOOD MD July 06, 2018 10:55
[2018-07-06 11:00] VITALS: BP 114/84
--- NOTE | 2018-07-06 11:22 | PDOC ---
[employer] PROGRESS NOTE Chief Complaint Chief Complaint Stage COPD, end stage. 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 Constipation Back pain History of Present Illness History of Present Illness Patient seen and examined Patient complains of constipation He denies SOA He states he is willing to go to SNU Recent PE dx at [facility] Last Sat, 2 clots Vitals Vitals Vital Signs Date Time Temp Pulse Resp B/P (MAP) Pulse Ox O2 Delivery O2 Flow Rate FiO2 07/06/18 07:48 100 Nasal Cannula 2.0 07/06/18 07:00 97.8 95 16 148/82 (104) 97.8 Physical Exam General: Alert, Oriented X3, Cooperative, No acute distress Lungs: Wheezing, Other (difuse crakles, wheezes more apparent on L) Abdomen: Normal bowel sounds, Soft, No tenderness, No hepatosplenomegaly, No masses Extremities: No clubbing, No cyanosis, No edema, Normal pulses, No tenderness/swelling Skin: Other (very dry skin, skin atrophy visible from chronic steroid use) Labs Labs: Laboratory Tests Test 07/06/18 07:04 White Blood Count 6.9 x10^3/uL (4.0-11.0) Red Blood Count 3.43 x10^6/uL (4.30-5.70) Hemoglobin 10.0 g/dL (13.0-17.5) Hematocrit 30.2 % (39.0-53.0) Mean Corpuscular Volume 88 fL (79-100) Mean Corpuscular Hemoglobin 29 pg (25-35) Mean Corpuscular Hemoglobin Concent 33 g/dL (31-37) Red Cell Distribution Width 15.4 % (11.5-14.5) Platelet Count 136 x10^3/uL (140-400) Neutrophils (%) (Auto) 90 % (31-73) Lymphocytes (%) (Auto) 4 % (24-48) Monocytes (%) (Auto) 6 % (0-9) Eosinophils (%) (Auto) 0 % (0-3) Basophils (%) (Auto) 1 % (0-3) Neutrophils # (Auto) 6.2 x10^3uL (1.8-7.7) Lymphocytes # (Auto) 0.3 x10^3/uL (1.0-4.8) Monocytes # (Auto) 0.4 x10^3/uL (0.0-1.1) Eosinophils # (Auto) 0.0 x10^3/uL (0.0-0.7) Basophils # (Auto) 0.0 x10^3/uL (0.0-0.2) Sodium Level 141 mmol/L (136-145) Potassium Level 3.7 mmol/L (3.5-5.1) Chloride Level 103 mmol/L (98-107) Carbon Dioxide Level 34 mmol/L (21-32) Anion Gap 4 (6-14) Blood Urea Nitrogen 15 mg/dL (8-26) Creatinine 0.8 mg/dL (0.7-1.3) Estimated GFR (Cockcroft-Gault) 119.7 Glucose Level 128 mg/dL (70-99) Calcium Level 8.8 mg/dL (8.5-10.1) Review of Systems Review of Systems Patient complains of constipation Patient complains of back pain Assessment and Plan Assessmemt and Plan Problems Medical Problems: (1) COPD with exacerbation Status: Acute (2) Hyperglycemia Status: Acute (3) Pulmonary embolism Status: Acute (4) Shortness of breath Status: Acute Assessment: Stage COPD, end stage. 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 Labs Laboratory Tests Test 07/04/18 16:14 07/04/18 16:20 07/04/18 17:45 07/04/18 18:00 O2 Saturation 89 % (92-99) Arterial Blood pH 7.42 (7.35-7.45) Arterial Blood pCO2 at Patient Temp 50 mmHg (35-46) Arterial Blood pO2 at Patient Temp 59 mmHg (65-108) Arterial Blood HCO3 32 mmol/L (21-28) Arterial Blood Base Excess 6 mmol/L (-3-3) Oxyhemoglobin 88.7 % Methemoglobin 0.3 % (0.0-1.9) Carbon Monoxide, Quantitative 0.1 % (0.0-1.9) FiO2 36 White Blood Count 11.8 x10^3/uL (4.0-11.0) Red Blood Count 4.16 x10^6/uL (4.30-5.70) Hemoglobin 11.9 g/dL (13.0-17.5) Hematocrit 36.7 % (39.0-53.0) Mean Corpuscular Volume 88 fL (79-100) Mean Corpuscular Hemoglobin 29 pg (25-35) Mean Corpuscular Hemoglobin Concent 32 g/dL (31-37) Red Cell Distribution Width 15.6 % (11.5-14.5) Platelet Count 187 x10^3/uL (140-400) Neutrophils (%) (Auto) 96 % (31-73) Lymphocytes (%) (Auto) 2 % (24-48) Monocytes (%) (Auto) 2 % (0-9) Eosinophils (%) (Auto) 0 % (0-3) Basophils (%) (Auto) 0 % (0-3) Neutrophils # (Auto) 11.3 x10^3uL (1.8-7.7) Lymphocytes # (Auto) 0.2 x10^3/uL (1.0-4.8) Monocytes # (Auto) 0.2 x10^3/uL (0.0-1.1) Eosinophils # (Auto) 0.0 x10^3/uL (0.0-0.7) Basophils # (Auto) 0.0 x10^3/uL (0.0-0.2) Segmented Neutrophils % 94 % (35-66) Lymphocytes % 4 % (24-48) Monocytes % 2 % (0-10) Platelet Estimate Adequate (ADEQUATE) Poikilocytosis Slight Anisocytosis Slight Ovalocytes Occ Prothrombin Time 21.6 SEC (11.7-14.0) Prothromb Time International Ratio 1.9 (0.8-1.1) Activated Partial Thromboplast Time 34 SEC (24-38) Sodium Level 137 mmol/L (136-145) Potassium Level 4.4 mmol/L (3.5-5.1) Chloride Level 94 mmol/L (98-107) Carbon Dioxide Level 34 mmol/L (21-32) Anion Gap 9 (6-14) Blood Urea Nitrogen 20 mg/dL (8-26) Creatinine 1.3 mg/dL (0.7-1.3) Estimated GFR (Cockcroft-Gault) 68.4 BUN/Creatinine Ratio 15 (6-20) Glucose Level 219 mg/dL (70-99) Lactic Acid Level 4.5 mmol/L (0.4-2.0) 4.0 mmol/L (0.4-2.0) Calcium Level 9.9 mg/dL (8.5-10.1) Magnesium Level 1.8 mg/dL (1.8-2.4) Total Bilirubin 0.7 mg/dL (0.2-1.0) Aspartate Amino Transf (AST/SGOT) 24 U/L (15-37) Alanine Aminotransferase (ALT/SGPT) 36 U/L (16-63) Alkaline Phosphatase 100 U/L (46-116) Creatine Kinase 131 U/L (39-308) Creatine Kinase MB (Mass) 1.9 ng/mL (0.0-3.6) Creatine Kinase MB Relative Index 1.5 % (0-4) Troponin I Quantitative < 0.017 ng/mL (0.000-0.055) YC-Lgv-K-Type Natriuretic Peptide 61 pg/mL (0-124) Total Protein 7.2 g/dL (6.4-8.2) Albumin 3.6 g/dL (3.4-5.0) Albumin/Globulin Ratio 1.0 (1.0-1.7) Thyroid Stimulating Hormone (TSH) 0.675 uIU/mL (0.358-3.74) Urine Collection Type Void Urine Color Yellow Urine Clarity Turbid Urine pH 6.0 Urine Specific [place] 1.015 Urine Protein Negative mg/dL (NEG-TRACE) Urine Glucose (UA) 250 mg/dL (NEG) Urine Ketones (Stick) Negative mg/dL (NEG) Urine Blood Negative (NEG) Urine Nitrite Negative (NEG) Urine Bilirubin Negative (NEG) Urine Urobilinogen Dipstick 0.2 mg/dL (0.2 mg/dL) Urine Leukocyte Esterase Negative (NEG) Urine RBC Occ /HPF (0-2) Urine WBC Occ /HPF (0-4) Urine Squamous Epithelial Cells Few /LPF Urine Bacteria Few /HPF (0-FEW) Urine Hyaline Casts Few /HPF Urine Mucus Slight /LPF Test 07/06/18 07:04 White Blood Count 6.9 x10^3/uL (4.0-11.0) Red Blood Count 3.43 x10^6/uL (4.30-5.70) Hemoglobin 10.0 g/dL (13.0-17.5) Hematocrit 30.2 % (39.0-53.0) Mean Corpuscular Volume 88 fL (79-100) Mean Corpuscular Hemoglobin 29 pg (25-35) Mean Corpuscular Hemoglobin Concent 33 g/dL (31-37) Red Cell Distribution Width 15.4 % (11.5-14.5) Platelet Count 136 x10^3/uL (140-400) Neutrophils (%) (Auto) 90 % (31-73) Lymphocytes (%) (Auto) 4 % (24-48) Monocytes (%) (Auto) 6 % (0-9) Eosinophils (%) (Auto) 0 % (0-3) Basophils (%) (Auto) 1 % (0-3) Neutrophils # (Auto) 6.2 x10^3uL (1.8-7.7) Lymphocytes # (Auto) 0.3 x10^3/uL (1.0-4.8) Monocytes # (Auto) 0.4 x10^3/uL (0.0-1.1) Eosinophils # (Auto) 0.0 x10^3/uL (0.0-0.7) Basophils # (Auto) 0.0 x10^3/uL (0.0-0.2) Sodium Level 141 mmol/L (136-145) Potassium Level 3.7 mmol/L (3.5-5.1) Chloride Level 103 mmol/L (98-107) Carbon Dioxide Level 34 mmol/L (21-32) Anion Gap 4 (6-14) Blood Urea Nitrogen 15 mg/dL (8-26) Creatinine 0.8 mg/dL (0.7-1.3) Estimated GFR (Cockcroft-Gault) 119.7 Glucose Level 128 mg/dL (70-99) Calcium Level 8.8 mg/dL (8.5-10.1) Laboratory Tests Test 07/06/18 07:04 White Blood Count 6.9 x10^3/uL (4.0-11.0) Red Blood Count 3.43 x10^6/uL (4.30-5.70) Hemoglobin 10.0 g/dL (13.0-17.5) Hematocrit 30.2 % (39.0-53.0) Mean Corpuscular Volume 88 fL (79-100) Mean Corpuscular Hemoglobin 29 pg (25-35) Mean Corpuscular Hemoglobin Concent 33 g/dL (31-37) Red Cell Distribution Width 15.4 % (11.5-14.5) Platelet Count 136 x10^3/uL (140-400) Neutrophils (%) (Auto) 90 % (31-73) Lymphocytes (%) (Auto) 4 % (24-48) Monocytes (%) (Auto) 6 % (0-9) Eosinophils (%) (Auto) 0 % (0-3) Basophils (%) (Auto) 1 % (0-3) Neutrophils # (Auto) 6.2 x10^3uL (1.8-7.7) Lymphocytes # (Auto) 0.3 x10^3/uL (1.0-4.8) Monocytes # (Auto) 0.4 x10^3/uL (0.0-1.1) Eosinophils # (Auto) 0.0 x10^3/uL (0.0-0.7) Basophils # (Auto) 0.0 x10^3/uL (0.0-0.2) Sodium Level 141 mmol/L (136-145) Potassium Level 3.7 mmol/L (3.5-5.1) Chloride Level 103 mmol/L (98-107) Carbon Dioxide Level 34 mmol/L (21-32) Anion Gap 4 (6-14) Blood Urea Nitrogen 15 mg/dL (8-26) Creatinine 0.8 mg/dL (0.7-1.3) Estimated GFR (Cockcroft-Gault) 119.7 Glucose Level 128 mg/dL (70-99) Calcium Level 8.8 mg/dL (8.5-10.1) Microbiology 07/05/18 Blood Culture - Preliminary, Resulted NO GROWTH AFTER 1 DAY Medications Current Medications Albuterol/ Ipratropium (Duoneb) 3 ml 1X ONCE NEB Last administered on 07/04/18 16:30; Start 07/04/18 at 16:30; Stop 07/04/18 at 16:31; Status DC Methylprednisolone Sodium Succinate (SOLU-Medrol 125MG VIAL) 125 mg 1X ONCE IV Last administered on 07/04/18 16:55; Start 07/04/18 at 16:30; Stop 07/04/18 at 16:31; Status DC Acetaminophen/ Hydrocodone Bitart (Lortab 5/325) 2 tab 1X ONCE PO Last administered on 07/04/18 16:54; Start 07/04/18 at 16:30; Stop 07/04/18 at 16:31; Status DC Albuterol/ Ipratropium (Duoneb) 3 ml RTQID NEB Last administered on 07/06/18 07:46; Start 07/04/18 at 20:00 Guaifenesin (Robitussin Dm) 10 ml PRN Q6HRS PRN PO COUGH; Start 07/04/18 at 17:00 Acetaminophen (Tylenol) 650 mg PRN Q4HRS PRN PO TEMP OVER 100.4F OR MILD PAIN; Start 07/04/18 at 17:00; Status UNV Atorvastatin Calcium (Lipitor) 10 mg HS PO Last administered on 07/05/18at 21:21; Start 07/04/18 at 21:00 Furosemide (Lasix) 40 mg DAILY PO Last administered on 07/06/18 08:35; Start 07/05/18 at 09:00 Lorazepam (Ativan) 1 mg BID PO Last administered on 07/06/18 08:35; Start 07/04/18 at 21:00 Metoclopramide HCl (Reglan) 5 mg QIDACHS PO Last administered on 07/06/18 08:35; Start 07/04/18 at 18:00 Tramadol HCl (Ultram) 50 mg PRN Q6HRS PRN PO PAIN Last administered on 07/06/18 05:26; Start 07/04/18 at 17:00 Vitamin D (Vitamin D3) 5,000 unit DAILY PO Last administered on 07/06/18 08:35; Start 07/05/18 at 09:00 Fluticasone Propionate (Flonase) 2 spray DAILY NS Last administered on 07/06/18 08:36; Start 07/05/18 at 09:00 Pantoprazole Sodium (Protonix) 40 mg DAILYAC PO Last administered on 07/06/18 08:35; Start 07/05/18 at 07:30 Potassium Chloride (Klor-Con) 20 meq DAILYWBKFT PO Last administered on 07/06/18 08:35; Start 07/05/18 at 08:00 Prednisone (Prednisone) 60 mg DAILY PO Last administered on 07/06/18 08:36; Start 07/05/18 at 09:00 Temazepam (Restoril) 7.5 mg PRN QHS PRN PO INSOMNIA Last administered on 07/05/18 21:23; Start 07/04/18 at 17:15 Lidocaine (Lidoderm) 1 patch DAILY TD Last administered on 07/06/18 08:36; Start 07/05/18 at 09:00 Rivaroxaban (Xarelto) 15 mg BIDWMEALS PO Last administered on 07/06/18 08:35; Start 07/04/18 at 21:00 Sodium Chloride 1,000 ml @ 1,000 mls/hr 1X ONCE IV Last administered on 07/04/18 18:35; Start 07/04/18 at 17:15; Stop 07/04/18 at 18:14; Status DC Sodium Chloride 1,000 ml @ 1,000 mls/hr 1X ONCE IV Last administered on 07/04/18 20:05; Start 07/04/18 at 17:15; Stop 07/04/18 at 18:14; Status DC Ceftriaxone Sodium (Rocephin) 1 gm 1X ONCE IVP Last administered on 07/04/18 20:21; Start 07/04/18 at 17:15; Stop 07/04/18 at 17:23; Status DC Ondansetron HCl (Zofran) 4 mg PRN Q8HRS PRN IV NAUSEA/VOMITING; Start 07/04/18 at 18:30; Stop 07/05/18 at 18:29; Status DC Morphine Sulfate (Morphine Sulfate) 2 mg PRN Q2HR PRN IV PAIN; Start 07/04/18 at 18:30; Stop 07/05/18 at 18:29; Status DC Acetaminophen (Tylenol) 650 mg PRN Q4HRS PRN PO FEVER; Start 07/04/18 at 18:30; Stop 07/05/18 at 18:29; Status DC Albuterol/ Ipratropium (Duoneb) 3 ml RTQID NEB ; Start 07/04/18 at 20:00; Stop 07/05/18 at 19:59; Status UNV Info (Anti-Coagulation Monitoring By Pharmacy) 1 each PRN DAILY PRN MC SEE COMMENTS Last administered on 07/05/18at 09:41; Start 07/04/18 at 20:45 Doxycycline Hyclate (Vibra-Tab) 100 mg BID PO Last administered on 07/06/18at 08:35; Start 07/05/18 at 21:00 Active Scripts Active Augmentin 875-125 Tablet (Amoxicillin/Potassium Clav) 1 Each Tablet 1 Tab PO BID Tramadol Hcl 50 Mg Tablet 50 Mg PO Q6HRS PRN Prednisone (Prednisone) 10 Mg Tablet 10 Mg PO UD Take 3 tablets by mouth twice a day for 3 days, then take 2 tablets by mouth twice a day for 3 days, then take 1 tablet by mouth twice a day for 3 days, then take 1 tablet by mouth daily x 3 days, then stop. Ativan (Lorazepam) 1 Mg Tablet 1 Mg PO BID Guaifenesin 100 Mg/5 Ml Liquid 200 Mg PO PRN Q4HRS PRN 30 Days Tylenol (Acetaminophen) 325 Mg Tablet 650 Mg PO PRN Q4HRS PRN 10 Days Ventolin Hfa Inhaler (Albuterol Sulfate) 18 Gm Hfa.aer.ad 2 Puff INH Q4HRS Reglan (Metoclopramide Hcl) 10 Mg Tablet 0.5 Tab PO QID 30 Days Albuterol Sulfate Neb Soln (Albuterol Sulfate) 2.5 Mg/3 Ml Vial.neb 1 Vial NEB PRN Q4HRS Reported Furosemide 40 Mg Tablet 1 Tab PO DAILY Vitamin D3 (Cholecalciferol (Vitamin D3)) 5,000 Unit Tablet 5,000 Unit PO DAILY Potassium Chloride 20 Meq Tablet.er 20 Meq PO DAILY Protonix (Pantoprazole Sodium) 20 Mg Tablet.dr 1 Tab PO DAILY Flonase Allergy Relief (Fluticasone Propionate) 9.9 Ml [place].susp 2 Sprays NS DAILY Atorvastatin Calcium 10 Mg Tablet 10 Mg PO HS Symbicort 160-4.5 Mcg Inhaler (Budesonide/Formoterol Fumarate) 10.2 Gm Hfa.aer.ad 2 Puff IH BID Vitals/I & O Vital Sign - Last 24 Hours 07/05/18 07/05/18 07/05/18 07/05/18 11:24 15:00 15:17 19:02 Temp 97.9 97.9 Pulse 93 Resp 22 B/P (MAP) 118/71 (87) Pulse Ox 97 97 97 O2 Delivery Nasal Cannula Room Air Nasal Cannula Nasal Cannula O2 Flow Rate 4.0 4.0 4.0 07/05/18 07/05/18 07/05/18 07/05/18 19:12 19:43 20:00 23:12 Temp 98.8 98.5 98.8 98.5 Pulse 115 100 Resp 20 B/P (MAP) 130/83 (99) 114/75 (88) Pulse Ox 100 97 98 O2 Delivery Nasal Cannula Nasal Cannula Nasal Cannula Nasal Cannula O2 Flow Rate 4.0 3.0 3.0 3.0 07/06/18 07/06/18 07/06/18 07/06/18 03:48 05:26 07:00 07:48 Temp 98.1 97.8 98.1 97.8 Pulse 92 95 Resp 18 24 16 B/P (MAP) 116/73 (87) 148/82 (104) Pulse Ox 93 99 100 O2 Delivery Nasal Cannula Nasal Cannula Nasal Cannula Nasal Cannula O2 Flow Rate 3.0 3.0 4.0 2.0 Intake and Output 07/05/18 07/05/18 07/06/18 15:00 23:00 07:00 Intake Total 400 ml 300 ml 200 ml Output Total 790 ml 625 ml 325 ml Balance -390 ml -325 ml -125 ml TAMMY MARKS K III DO July 06, 2018 11:22
[2018-07-06] MEDS: DOCUSATE SODIUM 100 MG CAPSULE. PO SCH ×2 (12:58→21:24)
--- NOTE | 2018-07-06 13:29 | RAD ---
Thoracic spine CT without contrast Clinical indications: Mid back pain with radiation to chest wall. TECHNIQUE: Noncontrast helical CT scanning of the thoracic spine was performed. Multiplanar 2-D reconstructions were generated. PQRS compliance Statement One or more of the following individualized dose reduction techniques were utilized for this study: 1. Automated exposure control 2. Adjustment of the mA and/or kV according to patient size 3. Use of iterative reconstruction technique COMPARISON: Chest CT dated May 30, 2018. FINDINGS: Scoliosis is evident. Only 11 ribs are evident. There is a mild compression deformity of the superior endplate of T1. There is a mild to moderate wedge compression deformity of T6. There is a moderate wedge compression deformity of T9. There is a mild compression deformity of the superior endplate of T12. The T1 and T6 compression fractures are unchanged. The T9 compression fracture is new. The T12 compression fracture appears more prominent than on the previous study and therefore has increased. No lytic process or discitis is seen. No posterior protrusion of bony elements into the spinal canal are seen. No focal disc protrusion or significant spinal canal stenosis is evident. Again noted is bullous emphysema of the left lung field which could be seen on the previous chest CT. IMPRESSION: Only 11 ribs are present. Based on this, there is a mild compression fracture of the superior endplate of T12 which has increased from the prior chest CT dated May 30, 2018. New compression fracture of T9. Old stable compression fractures of T1 and T6. Electronically signed by: Fransico Lindsey MD (07/06/2018 1:26 PM) [facility]
[2018-07-06 15:00] VITALS: BP 126/74
[2018-07-06 19:14] VITALS: BP 115/75
[2018-07-06] MEDS: ATORVASTATIN CALCIUM 10 MG TABLET. PO SCH (21:24)
[2018-07-06] MEDS: TEMAZEPAM 7.5 MG CAPSULE PO PRN (21:28)
[2018-07-06 22:23] VITALS: BP 126/78
[2018-07-07 02:03] VITALS: BP 125/91
[2018-07-07 07:00] VITALS: BP 116/80
--- NOTE | 2018-07-07 07:37 | PDOC ---
PULMONARY PROGRESS NOTES Subjective sob slightly better, has cough, nasal congestion Vitals Vital Signs Date Time Temp Pulse Resp B/P (MAP) Pulse Ox O2 Delivery O2 Flow Rate FiO2 07/07/18 02:03 98.0 91 18 125/91 (102) 99 Nasal Cannula 3.0 98.0 ROS: No Nausea General: Alert, No acute distress HEENT: Other (nc at perrl ) Lungs: Crackles (a few end exp wheezing), Other (end exp wheezing) Cardiovascular: S1, S2 Abdomen: Soft, Non-tender Neuro Exam: Alert Extremities: No Edema, Other Skin: Warm Labs Laboratory Tests Test 07/06/18 07:04 White Blood Count 6.9 x10^3/uL (4.0-11.0) Red Blood Count 3.43 x10^6/uL (4.30-5.70) Hemoglobin 10.0 g/dL (13.0-17.5) Hematocrit 30.2 % (39.0-53.0) Mean Corpuscular Volume 88 fL (79-100) Mean Corpuscular Hemoglobin 29 pg (25-35) Mean Corpuscular Hemoglobin Concent 33 g/dL (31-37) Red Cell Distribution Width 15.4 % (11.5-14.5) Platelet Count 136 x10^3/uL (140-400) Neutrophils (%) (Auto) 90 % (31-73) Lymphocytes (%) (Auto) 4 % (24-48) Monocytes (%) (Auto) 6 % (0-9) Eosinophils (%) (Auto) 0 % (0-3) Basophils (%) (Auto) 1 % (0-3) Neutrophils # (Auto) 6.2 x10^3uL (1.8-7.7) Lymphocytes # (Auto) 0.3 x10^3/uL (1.0-4.8) Monocytes # (Auto) 0.4 x10^3/uL (0.0-1.1) Eosinophils # (Auto) 0.0 x10^3/uL (0.0-0.7) Basophils # (Auto) 0.0 x10^3/uL (0.0-0.2) Sodium Level 141 mmol/L (136-145) Potassium Level 3.7 mmol/L (3.5-5.1) Chloride Level 103 mmol/L (98-107) Carbon Dioxide Level 34 mmol/L (21-32) Anion Gap 4 (6-14) Blood Urea Nitrogen 15 mg/dL (8-26) Creatinine 0.8 mg/dL (0.7-1.3) Estimated GFR (Cockcroft-Gault) 119.7 Glucose Level 128 mg/dL (70-99) Calcium Level 8.8 mg/dL (8.5-10.1) Medications Active Scripts Medications Dose Route/Sig Max Daily Dose Days Date Category Dose Instructions Augmentin 875-125 Tablet (Amoxicillin/Potassium Clav) 1 Each Tablet 1 Tab PO BID 06/25/18 Rx Tramadol Hcl 50 Mg Tablet 50 Mg PO Q6HRS PRN 06/25/18 Rx Prednisone (Prednisone) 10 Mg Tablet 10 Mg PO UD 06/25/18 Rx Take 3 tablets by mouth twice a day for 3 days, then take 2 tablets by mouth twice a day for 3 days, then take 1 tablet by mouth twice a day for 3 days, then take 1 tablet by mouth daily x 3 days, then stop. Furosemide 40 Mg Tablet 1 Tab PO DAILY 06/20/18 Reported Ativan (Lorazepam) 1 Mg Tablet 1 Mg PO BID 06/15/18 Rx Guaifenesin 100 Mg/5 Ml Liquid 200 Mg PO PRN Q4HRS PRN 30 05/30/18 Rx Tylenol (Acetaminophen) 325 Mg Tablet 650 Mg PO PRN Q4HRS PRN 10 05/30/18 Rx Ventolin Hfa Inhaler (Albuterol Sulfate) 18 Gm Hfa.aer.ad 2 Puff INH Q4HRS 05/10/18 Rx Vitamin D3 (Cholecalciferol (Vitamin D3)) 5,000 Unit Tablet 5,000 Unit PO DAILY 03/15/18 Reported Reglan (Metoclopramide Hcl) 10 Mg Tablet 0.5 Tab PO QID 30 02/14/18 Rx Potassium Chloride 20 Meq Tablet.er 20 Meq PO DAILY 01/13/18 Reported Protonix (Pantoprazole Sodium) 20 Mg Tablet.dr 1 Tab PO DAILY 11/18/17 Reported Flonase Allergy Relief (Fluticasone Propionate) 9.9 Ml [place].susp 2 Sprays NS DAILY 11/18/17 Reported Atorvastatin Calcium 10 Mg Tablet 10 Mg PO HS 08/21/17 Reported Albuterol Sulfate Neb Soln (Albuterol Sulfate) 2.5 Mg/3 Ml Vial.neb 1 Vial NEB PRN Q4HRS 07/10/17 Rx Symbicort 160-4.5 Mcg Inhaler (Budesonide/Formoterol Fumarate) 10.2 Gm Hfa.aer.ad 2 Puff IH BID 09/21/15 Reported Comments reviewed, 05/30/18 ct 1. Severe emphysema with a prominent bullous component on the left. 2. Chronic pleural/parenchymal scarring. 3. New small spiculated opacity in the right lower lobe which may be inflammatory or neoplastic. CT follow-up is suggested. Impression . IMPRESSION: 1. Xobyw-un-ifeyqih hypoxemic hypercapnic respiratory failure. 2. Acute exacerbation of chronic obstructive pulmonary disease. 3. Recent pulmonary embolism diagnosed at [facility] approximately a week ago. The patient presented on Xarelto. 4. Epistaxis and left subconjunctival hemorrhage, resulting from cough and increased pressure. resolved 5. Hypertension. 6. Depression. 7. Tobacco dependence, in remission. 8. abnl ct of chest, rll density 9. allergic rhinitis Plan . PLAN: 1. cont prednisone 60 mg daily, no dose change, still wheezing 2. Oxygen supplementation. 3. Xarelto. 4. Doxycycline for acute nonspecific bronchitis. 5. 05/30/18 ct showed rll denity, will do ct 6. BD 7. add flonase for nasal congestion discussed w TAMAR Hedrick MD July 07, 2018 07:37
[2018-07-07 07:42] LABS: BASO % 0 % (0-3); EOS % 1 % (0-3); HEMATOCRIT 30.6 % (39.0-53.0); HEMOGLOBIN 10.1 g/dL (13.0-17.5); LYMPH # 0.2 x10^3/uL (1.0-4.8); LYMPH % 3 % (24-48); MEAN CORPUSCULAR HEMOGLOBIN 29 pg (25-35); MEAN CORPUSCULAR HGB CONC 33 g/dL (31-37); MEAN CORPUSCULAR VOLUME 87 fL (79-100); MONO # 0.4 x10^3/uL (0.0-1.1); MONO % 6 % (0-9); NEUT # 5.9 x10^3uL (1.8-7.7); NEUT % 90 % (31-73); PLATELET COUNT 145 x10^3/uL (140-400); RED BLOOD COUNT 3.51 x10^6/uL (4.30-5.70); RED CELL DISTRIBUTION WIDTH 15.6 % (11.5-14.5); WHITE BLOOD COUNT 6.6 x10^3/uL (4.0-11.0)
[2018-07-07 07:55] LABS: CREATININE 0.8 mg/dL (0.7-1.3); GFR 119.7; POTASSIUM 3.6 mmol/L (3.5-5.1)
[2018-07-07] MEDS: IPRATRPIUM/ALBUTEROL 0.5/2.5MG 3 ML NEBU. NEB SCH ×4 (07:56→19:41)
[2018-07-07] MEDS: LIDOCAINE (700MG/PATCH) PATCH. TD SCH (08:04)
[2018-07-07] MEDS: RIVAROXABAN 15 MG TABLET. PO SCH ×2 (08:05→17:14)
[2018-07-07] MEDS: FLUTICASONE 50MCG/NASAL SPRAY 16GM BOTTLE. NS SCH (08:05)
[2018-07-07] MEDS: CHOLECALCIFEROL (VITAMIN D3) 5,000 UNIT CAPSULE PO SCH (08:05)
[2018-07-07] MEDS: PANTOPRAZOLE 40 MG TABLET.DR. PO SCH (08:05)
[2018-07-07] MEDS: DOXYCYCLINE HYCLATE 100 MG TABLET PO SCH ×2 (08:05→20:52)
[2018-07-07] MEDS: LORazepam 1 MG TABLET PO SCH ×2 (08:05→20:52)
[2018-07-07] MEDS: predniSONE 20 MG TABLET PO SCH (08:05)
[2018-07-07] MEDS: POTASSIUM CHLORIDE 20 MEQ TABLET.ER. PO SCH (08:05)
[2018-07-07] MEDS: FUROSEMIDE 40 MG TABLET. PO SCH (08:06)
[2018-07-07] MEDS: DOCUSATE SODIUM 100 MG CAPSULE. PO SCH ×2 (08:06→20:52)
[2018-07-07] MEDS: METOCLOPRAMIDE 10 MG TABLET. PO SCH ×4 (08:06→20:52)
[2018-07-07] MEDS: traMADol 50 MG TABLET PO PRN ×3 (08:06→20:53)
[2018-07-07] MEDS ORDERED: FLUTICASONE 50MCG/NASAL SPRAY 16GM BOTTLE. NS SCH (09:00)
--- NOTE | 2018-07-07 10:17 | RAD ---
CT study of the chest without contrast Clinical indications: Follow-up of right lower lobe density. COMPARISON: May 30, [address] TECHNIQUE: Noncontrast helical CT scanning of the chest was performed. Without IV contrast, the sensitivity to detect organ pathology is decreased. PQRS compliance Statement One or more of the following individualized dose reduction techniques were utilized for this study: 1. Automated exposure control 2. Adjustment of the mA and/or kV according to patient size 3. Use of iterative reconstruction technique FINDINGS: No enlarged thoracic lymphadenopathy is evident. No focal aneurysmal dilatation of the thoracic aorta is seen. The heart size is normal. Minimal pericardial effusion is seen. Calcified atheromatous disease of the coronary arteries is seen. Bilateral emphysema is seen. Severe bullous emphysema is again noted within the left upper lung region. The previously seen spiculated nodule of the anterior aspect of the superior segment right lower lobe has resolved. There is a new finding of mild groundglass lung infiltrate within the posterior right lower lobe. Subcentimeter bilateral pleural-based nodule is seen within the posterior aspect of the right upper lobe which is stable. No pneumothorax or pleural effusion is seen. The proximal bronchial tree is patent. Again seen is a compression fracture of T12 note-only 11 ribs are present and a compression fracture of T6 which have not changed significantly. There is a new compression fracture of T9 however. There is an old healed fracture of the lateral aspect of the right eighth rib. IMPRESSION: Resolution of previously seen spiculated nodule consistent with a benign inflammatory or infectious nodule. There is a new small groundglass lung infiltrate within the posterior right lower lobe most likely representing atelectasis. Stable compression fractures of T1 and T6. Increase in compression fracture of the superior endplate of T12. New compression fracture of T9. The latter 2 findings are stable from CT study of the thoracic spine performed on July 06, 2018. Note-only 11 ribs. Electronically signed by: Fransico Lindsey MD (07/07/2018 10:14 AM) [facility]
[2018-07-07 11:00] VITALS: BP 128/82
--- NOTE | 2018-07-07 13:37 | PDOC ---
[employer] PROGRESS NOTE Chief Complaint Chief Complaint Stage COPD, end stage. 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 Constipation Back pain History of Present Illness History of Present Illness Patient seen and examined Thoracic CT showed new T9 compression fracture Recent PE dx at [facility] over a week ago, 2 clots Patient reports constipation resolved Agreeable to SNU placement Vitals Vitals Vital Signs Date Time Temp Pulse Resp B/P (MAP) Pulse Ox O2 Delivery O2 Flow Rate FiO2 07/07/18 11:49 Nasal Cannula 3.0 07/07/18 11:00 98.7 116 18 128/82 (97) 97 98.7 Physical Exam General: Alert, Oriented X3, Cooperative, No acute distress Lungs: Crackles (a few end exp wheezing), Other (end exp wheezing) Abdomen: Normal bowel sounds, Soft, No tenderness, No hepatosplenomegaly, No masses Extremities: No clubbing, No cyanosis, No edema, Normal pulses, No tenderness/swelling Skin: Other (very dry skin, skin atrophy visible from chronic steroid use) Labs Labs: Laboratory Tests Test 07/07/18 07:17 White Blood Count 6.6 x10^3/uL (4.0-11.0) Red Blood Count 3.51 x10^6/uL (4.30-5.70) Hemoglobin 10.1 g/dL (13.0-17.5) Hematocrit 30.6 % (39.0-53.0) Mean Corpuscular Volume 87 fL (79-100) Mean Corpuscular Hemoglobin 29 pg (25-35) Mean Corpuscular Hemoglobin Concent 33 g/dL (31-37) Red Cell Distribution Width 15.6 % (11.5-14.5) Platelet Count 145 x10^3/uL (140-400) Neutrophils (%) (Auto) 90 % (31-73) Lymphocytes (%) (Auto) 3 % (24-48) Monocytes (%) (Auto) 6 % (0-9) Eosinophils (%) (Auto) 1 % (0-3) Basophils (%) (Auto) 0 % (0-3) Neutrophils # (Auto) 5.9 x10^3uL (1.8-7.7) Lymphocytes # (Auto) 0.2 x10^3/uL (1.0-4.8) Monocytes # (Auto) 0.4 x10^3/uL (0.0-1.1) Eosinophils # (Auto) 0.0 x10^3/uL (0.0-0.7) Basophils # (Auto) 0.0 x10^3/uL (0.0-0.2) Sodium Level 141 mmol/L (136-145) Potassium Level 3.6 mmol/L (3.5-5.1) Chloride Level 101 mmol/L (98-107) Carbon Dioxide Level 37 mmol/L (21-32) Anion Gap 3 (6-14) Blood Urea Nitrogen 15 mg/dL (8-26) Creatinine 0.8 mg/dL (0.7-1.3) Estimated GFR (Cockcroft-Gault) 119.7 Glucose Level 113 mg/dL (70-99) Calcium Level 9.0 mg/dL (8.5-10.1) Review of Systems Review of Systems Denies constipation Denies n/v Assessment and Plan Assessmemt and Plan Problems Medical Problems: (1) COPD with exacerbation Status: Acute (2) Hyperglycemia Status: Acute (3) Pulmonary embolism Status: Acute (4) Shortness of breath Status: Acute Assessment: Stage COPD, end stage. 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 Labs Laboratory Tests Test 07/06/18 07:04 07/07/18 07:17 White Blood Count 6.9 x10^3/uL (4.0-11.0) 6.6 x10^3/uL (4.0-11.0) Red Blood Count 3.43 x10^6/uL (4.30-5.70) 3.51 x10^6/uL (4.30-5.70) Hemoglobin 10.0 g/dL (13.0-17.5) 10.1 g/dL (13.0-17.5) Hematocrit 30.2 % (39.0-53.0) 30.6 % (39.0-53.0) Mean Corpuscular Volume 88 fL (79-100) 87 fL (79-100) Mean Corpuscular Hemoglobin 29 pg (25-35) 29 pg (25-35) Mean Corpuscular Hemoglobin Concent 33 g/dL (31-37) 33 g/dL (31-37) Red Cell Distribution Width 15.4 % (11.5-14.5) 15.6 % (11.5-14.5) Platelet Count 136 x10^3/uL (140-400) 145 x10^3/uL (140-400) Neutrophils (%) (Auto) 90 % (31-73) 90 % (31-73) Lymphocytes (%) (Auto) 4 % (24-48) 3 % (24-48) Monocytes (%) (Auto) 6 % (0-9) 6 % (0-9) Eosinophils (%) (Auto) 0 % (0-3) 1 % (0-3) Basophils (%) (Auto) 1 % (0-3) 0 % (0-3) Neutrophils # (Auto) 6.2 x10^3uL (1.8-7.7) 5.9 x10^3uL (1.8-7.7) Lymphocytes # (Auto) 0.3 x10^3/uL (1.0-4.8) 0.2 x10^3/uL (1.0-4.8) Monocytes # (Auto) 0.4 x10^3/uL (0.0-1.1) 0.4 x10^3/uL (0.0-1.1) Eosinophils # (Auto) 0.0 x10^3/uL (0.0-0.7) 0.0 x10^3/uL (0.0-0.7) Basophils # (Auto) 0.0 x10^3/uL (0.0-0.2) 0.0 x10^3/uL (0.0-0.2) Sodium Level 141 mmol/L (136-145) 141 mmol/L (136-145) Potassium Level 3.7 mmol/L (3.5-5.1) 3.6 mmol/L (3.5-5.1) Chloride Level 103 mmol/L (98-107) 101 mmol/L (98-107) Carbon Dioxide Level 34 mmol/L (21-32) 37 mmol/L (21-32) Anion Gap 4 (6-14) 3 (6-14) Blood Urea Nitrogen 15 mg/dL (8-26) 15 mg/dL (8-26) Creatinine 0.8 mg/dL (0.7-1.3) 0.8 mg/dL (0.7-1.3) Estimated GFR (Cockcroft-Gault) 119.7 119.7 Glucose Level 128 mg/dL (70-99) 113 mg/dL (70-99) Calcium Level 8.8 mg/dL (8.5-10.1) 9.0 mg/dL (8.5-10.1) Laboratory Tests Test 07/07/18 07:17 White Blood Count 6.6 x10^3/uL (4.0-11.0) Red Blood Count 3.51 x10^6/uL (4.30-5.70) Hemoglobin 10.1 g/dL (13.0-17.5) Hematocrit 30.6 % (39.0-53.0) Mean Corpuscular Volume 87 fL (79-100) Mean Corpuscular Hemoglobin 29 pg (25-35) Mean Corpuscular Hemoglobin Concent 33 g/dL (31-37) Red Cell Distribution Width 15.6 % (11.5-14.5) Platelet Count 145 x10^3/uL (140-400) Neutrophils (%) (Auto) 90 % (31-73) Lymphocytes (%) (Auto) 3 % (24-48) Monocytes (%) (Auto) 6 % (0-9) Eosinophils (%) (Auto) 1 % (0-3) Basophils (%) (Auto) 0 % (0-3) Neutrophils # (Auto) 5.9 x10^3uL (1.8-7.7) Lymphocytes # (Auto) 0.2 x10^3/uL (1.0-4.8) Monocytes # (Auto) 0.4 x10^3/uL (0.0-1.1) Eosinophils # (Auto) 0.0 x10^3/uL (0.0-0.7) Basophils # (Auto) 0.0 x10^3/uL (0.0-0.2) Sodium Level 141 mmol/L (136-145) Potassium Level 3.6 mmol/L (3.5-5.1) Chloride Level 101 mmol/L (98-107) Carbon Dioxide Level 37 mmol/L (21-32) Anion Gap 3 (6-14) Blood Urea Nitrogen 15 mg/dL (8-26) Creatinine 0.8 mg/dL (0.7-1.3) Estimated GFR (Cockcroft-Gault) 119.7 Glucose Level 113 mg/dL (70-99) Calcium Level 9.0 mg/dL (8.5-10.1) Microbiology 07/05/18 Blood Culture - Final, Complete Medications Current Medications Albuterol/ Ipratropium (Duoneb) 3 ml 1X ONCE NEB Last administered on 07/04/18at 16:30; Start 07/04/18 at 16:30; Stop 07/04/18 at 16:31; Status DC Methylprednisolone Sodium Succinate (SOLU-Medrol 125MG VIAL) 125 mg 1X ONCE IV Last administered on 07/04/18at 16:55; Start 07/04/18 at 16:30; Stop 07/04/18 at 16:31; Status DC Acetaminophen/ Hydrocodone Bitart (Lortab 5/325) 2 tab 1X ONCE PO Last administered on 07/04/18at 16:54; Start 07/04/18 at 16:30; Stop 07/04/18 at 16:31; Status DC Albuterol/ Ipratropium (Duoneb) 3 ml RTQID NEB Last administered on 07/07/18at 11:49; Start 07/04/18 at 20:00 Guaifenesin (Robitussin Dm) 10 ml PRN Q6HRS PRN PO COUGH; Start 07/04/18 at 17:00 Acetaminophen (Tylenol) 650 mg PRN Q4HRS PRN PO TEMP OVER 100.4F OR MILD PAIN; Start 07/04/18 at 17:00; Status UNV Atorvastatin Calcium (Lipitor) 10 mg HS PO Last administered on 07/06/18at 21:24; Start 07/04/18 at 21:00 Furosemide (Lasix) 40 mg DAILY PO Last administered on 07/07/18 08:06; Start 07/05/18 at 09:00 Lorazepam (Ativan) 1 mg BID PO Last administered on 07/07/18 08:05; Start 07/04/18 at 21:00 Metoclopramide HCl (Reglan) 5 mg QIDACHS PO Last administered on 07/07/18 12:08; Start 07/04/18 at 18:00 Tramadol HCl (Ultram) 50 mg PRN Q6HRS PRN PO PAIN Last administered on 07/07/18 08:06; Start 07/04/18 at 17:00 Vitamin D (Vitamin D3) 5,000 unit DAILY PO Last administered on 07/07/18 08:05; Start 07/05/18 at 09:00 Fluticasone Propionate (Flonase) 2 spray DAILY NS Last administered on 07/07/18 08:05; Start 07/05/18 at 09:00 Pantoprazole Sodium (Protonix) 40 mg DAILYAC PO Last administered on 07/07/18 08:05; Start 07/05/18 at 07:30 Potassium Chloride (Klor-Con) 20 meq DAILYWBKFT PO Last administered on 07/07/18 08:05; Start 07/05/18 at 08:00 Prednisone (Prednisone) 60 mg DAILY PO Last administered on 07/07/18 08:05; Start 07/05/18 at 09:00 Temazepam (Restoril) 7.5 mg PRN QHS PRN PO INSOMNIA Last administered on 07/06/18 21:28; Start 07/04/18 at 17:15 Lidocaine (Lidoderm) 1 patch DAILY TD Last administered on 07/07/18 08:04; Start 07/05/18 at 09:00 Rivaroxaban (Xarelto) 15 mg BIDWMEALS PO Last administered on 07/07/18 08:05; Start 07/04/18 at 21:00 Sodium Chloride 1,000 ml @ 1,000 mls/hr 1X ONCE IV Last administered on 07/04/18 18:35; Start 07/04/18 at 17:15; Stop 07/04/18 at 18:14; Status DC Sodium Chloride 1,000 ml @ 1,000 mls/hr 1X ONCE IV Last administered on 07/04/18at 20:05; Start 07/04/18 at 17:15; Stop 07/04/18 at 18:14; Status DC Ceftriaxone Sodium (Rocephin) 1 gm 1X ONCE IVP Last administered on 07/04/18at 20:21; Start 07/04/18 at 17:15; Stop 07/04/18 at 17:23; Status DC Ondansetron HCl (Zofran) 4 mg PRN Q8HRS PRN IV NAUSEA/VOMITING; Start 07/04/18 at 18:30; Stop 07/05/18 at 18:29; Status DC Morphine Sulfate (Morphine Sulfate) 2 mg PRN Q2HR PRN IV PAIN; Start 07/04/18 at 18:30; Stop 07/05/18 at 18:29; Status DC Acetaminophen (Tylenol) 650 mg PRN Q4HRS PRN PO FEVER; Start 07/04/18 at 18:30; Stop 07/05/18 at 18:29; Status DC Albuterol/ Ipratropium (Duoneb) 3 ml RTQID NEB ; Start 07/04/18 at 20:00; Stop 07/05/18 at 19:59; Status UNV Info (Anti-Coagulation Monitoring By Pharmacy) 1 each PRN DAILY PRN MC SEE COMMENTS Last administered on 07/05/18at 09:41; Start 07/04/18 at 20:45 Doxycycline Hyclate (Vibra-Tab) 100 mg BID PO Last administered on 07/07/18at 08:05; Start 07/05/18 at 21:00 Docusate Sodium (Colace) 100 mg BID PO Last administered on 07/07/18at 08:06; Start 07/06/18 at 12:00 Fluticasone Propionate (Flonase) 2 spray DAILY NS ; Start 07/07/18 at 09:00; Status UNV Lactobacillus Rhamnosus (Culturelle) 1 cap BID PO ; Start 07/07/18 at 21:00 Active Scripts Active Augmentin 875-125 Tablet (Amoxicillin/Potassium Clav) 1 Each Tablet 1 Tab PO BID Tramadol Hcl 50 Mg Tablet 50 Mg PO Q6HRS PRN Prednisone (Prednisone) 10 Mg Tablet 10 Mg PO UD Take 3 tablets by mouth twice a day for 3 days, then take 2 tablets by mouth twice a day for 3 days, then take 1 tablet by mouth twice a day for 3 days, then take 1 tablet by mouth daily x 3 days, then stop. Ativan (Lorazepam) 1 Mg Tablet 1 Mg PO BID Guaifenesin 100 Mg/5 Ml Liquid 200 Mg PO PRN Q4HRS PRN 30 Days Tylenol (Acetaminophen) 325 Mg Tablet 650 Mg PO PRN Q4HRS PRN 10 Days Ventolin Hfa Inhaler (Albuterol Sulfate) 18 Gm Hfa.aer.ad 2 Puff INH Q4HRS Reglan (Metoclopramide Hcl) 10 Mg Tablet 0.5 Tab PO QID 30 Days Albuterol Sulfate Neb Soln (Albuterol Sulfate) 2.5 Mg/3 Ml Vial.neb 1 Vial NEB PRN Q4HRS Reported Furosemide 40 Mg Tablet 1 Tab PO DAILY Vitamin D3 (Cholecalciferol (Vitamin D3)) 5,000 Unit Tablet 5,000 Unit PO DAILY Potassium Chloride 20 Meq Tablet.er 20 Meq PO DAILY Protonix (Pantoprazole Sodium) 20 Mg Tablet.dr 1 Tab PO DAILY Flonase Allergy Relief (Fluticasone Propionate) 9.9 Ml [place].susp 2 Sprays NS DAILY Atorvastatin Calcium 10 Mg Tablet 10 Mg PO HS Symbicort 160-4.5 Mcg Inhaler (Budesonide/Formoterol Fumarate) 10.2 Gm Hfa.aer.ad 2 Puff IH BID Vitals/I & O Vital Sign - Last 24 Hours 07/06/18 07/06/18 07/06/18 07/06/18 15:00 16:12 19:14 20:04 Temp 98.4 99.0 98.4 99.0 Pulse 114 83 Resp 14 18 B/P (MAP) 126/74 (91) 115/75 (88) Pulse Ox 97 98 O2 Delivery Nasal Cannula Nasal Cannula Nasal Cannula Nasal Cannula O2 Flow Rate 4.0 3.0 3.0 3.0 07/06/18 07/06/18 07/06/18 07/07/18 20:40 21:29 22:23 02:03 Temp 98.3 98.0 98.3 98.0 Pulse 98 91 Resp 18 20 18 B/P (MAP) 126/78 (94) 125/91 (102) Pulse Ox 99 99 O2 Delivery Nasal Cannula Nasal Cannula Nasal Cannula Nasal Cannula O2 Flow Rate 3.0 3.0 3.0 3.0 07/07/18 07/07/18 07/07/18 07/07/18 07:00 07:56 08:00 11:00 Temp 98.3 98.7 98.3 98.7 Pulse 87 116 Resp 14 18 B/P (MAP) 116/80 (92) 128/82 (97) Pulse Ox 99 97 O2 Delivery Nasal Cannula Nasal Cannula Nasal Cannula Nasal Cannula O2 Flow Rate 4.0 3.0 3.0 4.0 07/07/18 11:49 O2 Delivery Nasal Cannula O2 Flow Rate 3.0 l Intake and Output 07/06/18 07/06/18 07/07/18 15:00 23:00 07:00 Intake Total 236 ml 236 ml 720 ml Output Total 1150 ml 425 ml 650 ml Balance -914 ml -189 ml 70 ml TAMMY MARKS III DO July 07, 2018 13:37
[2018-07-07] MEDS: cefTRIAXone IV Push 1 GM VIAL. IVP SCH (14:33)
[2018-07-07 15:00] VITALS: BP 120/72
[2018-07-07] MEDS ORDERED: INSULIN LISPRO 300 UNITS/3 ML INSULN.PEN. SQ SCH (17:30)
[2018-07-07] MEDS ORDERED: DEXTROSE 50% 25 GM / 50ML DISP.SYRIN. IV PRN ×3 (17:30→18:00)
[2018-07-07] MEDS: INSULIN LISPRO 300 UNITS/3 ML INSULN.PEN. SQ SCH (18:23)
[2018-07-07 19:00] VITALS: BP 121/74
[2018-07-07] MEDS: LACTOBACILLUS RHAMNOSUS GG 1 CAPSULE. PO SCH (20:52)
[2018-07-07] MEDS: ATORVASTATIN CALCIUM 10 MG TABLET. PO SCH (20:52)
[2018-07-07] MEDS: TEMAZEPAM 7.5 MG CAPSULE PO PRN (20:52)
[2018-07-07 23:14] VITALS: BP 120/81
[2018-07-08 03:46] VITALS: BP 136/96
[2018-07-08 04:43] LABS: BASO % 0 % (0-3); EOS % 0 % (0-3); HEMATOCRIT 29.6 % (39.0-53.0); HEMOGLOBIN 9.8 g/dL (13.0-17.5); LYMPH # 0.3 x10^3/uL (1.0-4.8); LYMPH % 4 % (24-48); MEAN CORPUSCULAR HEMOGLOBIN 29 pg (25-35); MEAN CORPUSCULAR HGB CONC 33 g/dL (31-37); MEAN CORPUSCULAR VOLUME 87 fL (79-100); MONO # 0.4 x10^3/uL (0.0-1.1); MONO % 6 % (0-9); NEUT # 6.1 x10^3uL (1.8-7.7); NEUT % 89 % (31-73); PLATELET COUNT 149 x10^3/uL (140-400); RED BLOOD COUNT 3.38 x10^6/uL (4.30-5.70); RED CELL DISTRIBUTION WIDTH 15.6 % (11.5-14.5); WHITE BLOOD COUNT 6.9 x10^3/uL (4.0-11.0)
[2018-07-08 05:18] LABS: CREATININE 0.8 mg/dL (0.7-1.3); GFR 119.7; POTASSIUM 3.6 mmol/L (3.5-5.1)
[2018-07-08 07:00] VITALS: BP 105/81
[2018-07-08] MEDS: IPRATRPIUM/ALBUTEROL 0.5/2.5MG 3 ML NEBU. NEB SCH ×4 (07:16→19:50)
[2018-07-08] MEDS: INSULIN LISPRO 300 UNITS/3 ML INSULN.PEN. SQ SCH ×3 (08:00→20:58)
[2018-07-08] MEDS: CHOLECALCIFEROL (VITAMIN D3) 5,000 UNIT CAPSULE PO SCH (08:26)
[2018-07-08] MEDS: LIDOCAINE (700MG/PATCH) PATCH. TD SCH (08:27)
[2018-07-08] MEDS: predniSONE 20 MG TABLET PO SCH (08:28)
[2018-07-08] MEDS: METOCLOPRAMIDE 10 MG TABLET. PO SCH ×4 (08:28→20:49)
[2018-07-08] MEDS: LORazepam 1 MG TABLET PO SCH ×2 (08:28→20:48)
[2018-07-08] MEDS: DOCUSATE SODIUM 100 MG CAPSULE. PO SCH ×2 (08:28→20:48)
[2018-07-08] MEDS: DOXYCYCLINE HYCLATE 100 MG TABLET PO SCH ×2 (08:29→20:49)
[2018-07-08] MEDS: PANTOPRAZOLE 40 MG TABLET.DR. PO SCH (08:29)
[2018-07-08] MEDS: LACTOBACILLUS RHAMNOSUS GG 1 CAPSULE. PO SCH (08:29)
[2018-07-08] MEDS: POTASSIUM CHLORIDE 20 MEQ TABLET.ER. PO SCH (08:29)
[2018-07-08] MEDS: RIVAROXABAN 15 MG TABLET. PO SCH (08:29)
[2018-07-08] MEDS: FUROSEMIDE 40 MG TABLET. PO SCH (08:29)
[2018-07-08] MEDS: FLUTICASONE 50MCG/NASAL SPRAY 16GM BOTTLE. NS SCH (08:39)
--- NOTE | 2018-07-08 08:40 | PDOC ---
PROGRESS NOTES Chief Complaint Chief Complaint Stage COPD, end stage. 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 Constipation Back pain - T9 fracture History of Present Illness History of Present Illness Patient seen and examined Thoracic CT showed new T9 compression fracture - to IR tomorrow if Recent PE dx at [place] over a week ago, 2 clots, on anticoagulation now Patient reports constipation resolved Agreeable to SNU placement Will be difficult, have to d/w IR for kyphoplasty because he needs anticoagulation as well, has been continued on his xarelto Vitals Vitals Vital Signs Date Time Temp Pulse Resp B/P (MAP) Pulse Ox O2 Delivery O2 Flow Rate FiO2 07/08/18 07:16 99 Nasal Cannula 3.0 07/08/18 07:00 98.0 101 18 105/81 (89) 98.0 Physical Exam General: Alert, Oriented X3, Cooperative, No acute distress Lungs: Crackles (a few end exp wheezing), Other (end exp wheezing) Abdomen: Normal bowel sounds, Soft, No tenderness, No hepatosplenomegaly, No masses Extremities: No clubbing, No cyanosis, No edema, Normal pulses, No tenderness/swelling Skin: Other (very dry skin, skin atrophy visible from chronic steroid use) Labs LABS Laboratory Tests Test 07/07/18 15:44 07/07/18 17:16 07/07/18 22:35 07/08/18 03:25 Glucose (Fingerstick) 328 mg/dL (70-99) 218 mg/dL (70-99) 197 mg/dL (70-99) White Blood Count 6.9 x10^3/uL (4.0-11.0) Red Blood Count 3.38 x10^6/uL (4.30-5.70) Hemoglobin 9.8 g/dL (13.0-17.5) Hematocrit 29.6 % (39.0-53.0) Mean Corpuscular Volume 87 fL (79-100) Mean Corpuscular Hemoglobin 29 pg (25-35) Mean Corpuscular Hemoglobin Concent 33 g/dL (31-37) Red Cell Distribution Width 15.6 % (11.5-14.5) Platelet Count 149 x10^3/uL (140-400) Neutrophils (%) (Auto) 89 % (31-73) Lymphocytes (%) (Auto) 4 % (24-48) Monocytes (%) (Auto) 6 % (0-9) Eosinophils (%) (Auto) 0 % (0-3) Basophils (%) (Auto) 0 % (0-3) Neutrophils # (Auto) 6.1 x10^3uL (1.8-7.7) Lymphocytes # (Auto) 0.3 x10^3/uL (1.0-4.8) Monocytes # (Auto) 0.4 x10^3/uL (0.0-1.1) Eosinophils # (Auto) 0.0 x10^3/uL (0.0-0.7) Basophils # (Auto) 0.0 x10^3/uL (0.0-0.2) Sodium Level 140 mmol/L (136-145) Potassium Level 3.6 mmol/L (3.5-5.1) Chloride Level 100 mmol/L (98-107) Carbon Dioxide Level 36 mmol/L (21-32) Anion Gap 4 (6-14) Blood Urea Nitrogen 14 mg/dL (8-26) Creatinine 0.8 mg/dL (0.7-1.3) Estimated GFR (Cockcroft-Gault) 119.7 Glucose Level 145 mg/dL (70-99) Calcium Level 9.0 mg/dL (8.5-10.1) Test 07/08/18 07:30 Glucose (Fingerstick) 128 mg/dL (70-99) Assessment and Plan Assessmemt and Plan Problems Medical Problems: (1) COPD with exacerbation Status: Acute (2) Hyperglycemia Status: Acute (3) Pulmonary embolism Status: Acute (4) Shortness of breath Status: Acute Comment Review of Relevant I have reviewed the following items franki (where applicable) has been applied. Labs Laboratory Tests Test 07/07/18 07:17 07/07/18 15:44 07/07/18 17:16 07/07/18 22:35 White Blood Count 6.6 x10^3/uL (4.0-11.0) Red Blood Count 3.51 x10^6/uL (4.30-5.70) Hemoglobin 10.1 g/dL (13.0-17.5) Hematocrit 30.6 % (39.0-53.0) Mean Corpuscular Volume 87 fL (79-100) Mean Corpuscular Hemoglobin 29 pg (25-35) Mean Corpuscular Hemoglobin Concent 33 g/dL (31-37) Red Cell Distribution Width 15.6 % (11.5-14.5) Platelet Count 145 x10^3/uL (140-400) Neutrophils (%) (Auto) 90 % (31-73) Lymphocytes (%) (Auto) 3 % (24-48) Monocytes (%) (Auto) 6 % (0-9) Eosinophils (%) (Auto) 1 % (0-3) Basophils (%) (Auto) 0 % (0-3) Neutrophils # (Auto) 5.9 x10^3uL (1.8-7.7) Lymphocytes # (Auto) 0.2 x10^3/uL (1.0-4.8) Monocytes # (Auto) 0.4 x10^3/uL (0.0-1.1) Eosinophils # (Auto) 0.0 x10^3/uL (0.0-0.7) Basophils # (Auto) 0.0 x10^3/uL (0.0-0.2) Sodium Level 141 mmol/L (136-145) Potassium Level 3.6 mmol/L (3.5-5.1) Chloride Level 101 mmol/L (98-107) Carbon Dioxide Level 37 mmol/L (21-32) Anion Gap 3 (6-14) Blood Urea Nitrogen 15 mg/dL (8-26) Creatinine 0.8 mg/dL (0.7-1.3) Estimated GFR (Cockcroft-Gault) 119.7 Glucose Level 113 mg/dL (70-99) Calcium Level 9.0 mg/dL (8.5-10.1) Glucose (Fingerstick) 328 mg/dL (70-99) 218 mg/dL (70-99) 197 mg/dL (70-99) Test 07/08/18 03:25 07/08/18 07:30 White Blood Count 6.9 x10^3/uL (4.0-11.0) Red Blood Count 3.38 x10^6/uL (4.30-5.70) Hemoglobin 9.8 g/dL (13.0-17.5) Hematocrit 29.6 % (39.0-53.0) Mean Corpuscular Volume 87 fL (79-100) Mean Corpuscular Hemoglobin 29 pg (25-35) Mean Corpuscular Hemoglobin Concent 33 g/dL (31-37) Red Cell Distribution Width 15.6 % (11.5-14.5) Platelet Count 149 x10^3/uL (140-400) Neutrophils (%) (Auto) 89 % (31-73) Lymphocytes (%) (Auto) 4 % (24-48) Monocytes (%) (Auto) 6 % (0-9) Eosinophils (%) (Auto) 0 % (0-3) Basophils (%) (Auto) 0 % (0-3) Neutrophils # (Auto) 6.1 x10^3uL (1.8-7.7) Lymphocytes # (Auto) 0.3 x10^3/uL (1.0-4.8) Monocytes # (Auto) 0.4 x10^3/uL (0.0-1.1) Eosinophils # (Auto) 0.0 x10^3/uL (0.0-0.7) Basophils # (Auto) 0.0 x10^3/uL (0.0-0.2) Sodium Level 140 mmol/L (136-145) Potassium Level 3.6 mmol/L (3.5-5.1) Chloride Level 100 mmol/L (98-107) Carbon Dioxide Level 36 mmol/L (21-32) Anion Gap 4 (6-14) Blood Urea Nitrogen 14 mg/dL (8-26) Creatinine 0.8 mg/dL (0.7-1.3) Estimated GFR (Cockcroft-Gault) 119.7 Glucose Level 145 mg/dL (70-99) Calcium Level 9.0 mg/dL (8.5-10.1) Glucose (Fingerstick) 128 mg/dL (70-99) Laboratory Tests Test 07/07/18 15:44 07/07/18 17:16 07/07/18 22:35 07/08/18 03:25 Glucose (Fingerstick) 328 mg/dL (70-99) 218 mg/dL (70-99) 197 mg/dL (70-99) White Blood Count 6.9 x10^3/uL (4.0-11.0) Red Blood Count 3.38 x10^6/uL (4.30-5.70) Hemoglobin 9.8 g/dL (13.0-17.5) Hematocrit 29.6 % (39.0-53.0) Mean Corpuscular Volume 87 fL (79-100) Mean Corpuscular Hemoglobin 29 pg (25-35) Mean Corpuscular Hemoglobin Concent 33 g/dL (31-37) Red Cell Distribution Width 15.6 % (11.5-14.5) Platelet Count 149 x10^3/uL (140-400) Neutrophils (%) (Auto) 89 % (31-73) Lymphocytes (%) (Auto) 4 % (24-48) Monocytes (%) (Auto) 6 % (0-9) Eosinophils (%) (Auto) 0 % (0-3) Basophils (%) (Auto) 0 % (0-3) Neutrophils # (Auto) 6.1 x10^3uL (1.8-7.7) Lymphocytes # (Auto) 0.3 x10^3/uL (1.0-4.8) Monocytes # (Auto) 0.4 x10^3/uL (0.0-1.1) Eosinophils # (Auto) 0.0 x10^3/uL (0.0-0.7) Basophils # (Auto) 0.0 x10^3/uL (0.0-0.2) Sodium Level 140 mmol/L (136-145) Potassium Level 3.6 mmol/L (3.5-5.1) Chloride Level 100 mmol/L (98-107) Carbon Dioxide Level 36 mmol/L (21-32) Anion Gap 4 (6-14) Blood Urea Nitrogen 14 mg/dL (8-26) Creatinine 0.8 mg/dL (0.7-1.3) Estimated GFR (Cockcroft-Gault) 119.7 Glucose Level 145 mg/dL (70-99) Calcium Level 9.0 mg/dL (8.5-10.1) Test 07/08/18 07:30 Glucose (Fingerstick) 128 mg/dL (70-99) Microbiology 07/05/18 Blood Culture - Final, Complete Medications Current Medications Albuterol/ Ipratropium (Duoneb) 3 ml 1X ONCE NEB Last administered on 07/04/18 16:30; Start 07/04/18 at 16:30; Stop 07/04/18 at 16:31; Status DC Methylprednisolone Sodium Succinate (SOLU-Medrol 125MG VIAL) 125 mg 1X ONCE IV Last administered on 07/04/18 16:55; Start 07/04/18 at 16:30; Stop 07/04/18 at 16:31; Status DC Acetaminophen/ Hydrocodone Bitart (Lortab 5/325) 2 tab 1X ONCE PO Last administered on 07/04/18 16:54; Start 07/04/18 at 16:30; Stop 07/04/18 at 16:31 ; Status DC Albuterol/ Ipratropium (Duoneb) 3 ml RTQID NEB Last administered on 07/08/18 07:16; Start 07/04/18 at 20:00 Guaifenesin (Robitussin Dm) 10 ml PRN Q6HRS PRN PO COUGH; Start 07/04/18 at 17:00 Acetaminophen (Tylenol) 650 mg PRN Q4HRS PRN PO TEMP OVER 100.4F OR MILD PAIN; Start 07/04/18 at 17:00; Status UNV Atorvastatin Calcium (Lipitor) 10 mg HS PO Last administered on 07/07/18 20:52; Start 07/04/18 at 21:00 Furosemide (Lasix) 40 mg DAILY PO Last administered on 07/07/18 08:06; Start 07/05/18 at 09:00 Lorazepam (Ativan) 1 mg BID PO Last administered on 07/07/18 20:52; Start 07/04/18 at 21:00 Metoclopramide HCl (Reglan) 5 mg QIDACHS PO Last administered on 07/07/18 20:52; Start 07/04/18 at 18:00 Tramadol HCl (Ultram) 50 mg PRN Q6HRS PRN PO PAIN Last administered on 07/07/18 20:53; Start 07/04/18 at 17:00 Vitamin D (Vitamin D3) 5,000 unit DAILY PO Last administered on 07/07/18 08:05; Start 07/05/18 at 09:00 Fluticasone Propionate (Flonase) 2 spray DAILY NS Last administered on 9at 08:05; Start 07/05/18 at 09:00 Pantoprazole Sodium (Protonix) 40 mg DAILYAC PO Last administered on 07/07/18 08:05; Start 07/05/18 at 07:30 Potassium Chloride (Klor-Con) 20 meq DAILYWBKFT PO Last administered on 07/07/18 08:05; Start 07/05/18 at 08:00 Prednisone (Prednisone) 60 mg DAILY PO Last administered on 07/07/18 08:05; Start 07/05/18 at 09:00 Temazepam (Restoril) 7.5 mg PRN QHS PRN PO INSOMNIA Last administered on 07/07/18 20:52; Start 07/04/18 at 17:15 Lidocaine (Lidoderm) 1 patch DAILY TD Last administered on 07/07/18 08:04; Start 07/05/18 at 09:00 Rivaroxaban (Xarelto) 15 mg BIDWMEALS PO Last administered on 07/07/18 17:14; Start 07/04/18 at 21:00 Sodium Chloride 1,000 ml @ 1,000 mls/hr 1X ONCE IV Last administered on 07/04/18at 18:35; Start 07/04/18 at 17:15; Stop 07/04/18 at 18:14; Status DC Sodium Chloride 1,000 ml @ 1,000 mls/hr 1X ONCE IV Last administered on 07/04/18 20:05; Start 07/04/18 at 17:15; Stop 07/04/18 at 18:14; Status DC Ceftriaxone Sodium (Rocephin) 1 gm 1X ONCE IVP Last administered on 07/04/18at 20:21; Start 07/04/18 at 17:15; Stop 07/04/18 at 17:23; Status DC Ondansetron HCl (Zofran) 4 mg PRN Q8HRS PRN IV NAUSEA/VOMITING; Start 07/04/18 at 18:30; Stop 07/05/18 at 18:29; Status DC Morphine Sulfate (Morphine Sulfate) 2 mg PRN Q2HR PRN IV PAIN; Start 07/04/18 at 18:30; Stop 07/05/18 at 18:29; Status DC Acetaminophen (Tylenol) 650 mg PRN Q4HRS PRN PO FEVER; Start 07/04/18 at 18:30; Stop 07/05/18 at 18:29; Status DC Albuterol/ Ipratropium (Duoneb) 3 ml RTQID NEB ; Start 07/04/18 at 20:00; Stop 07/05/18 at 19:59; Status UNV Info (Anti-Coagulation Monitoring By Pharmacy) 1 each PRN DAILY PRN MC SEE COMMENTS Last administered on 07/05/18at 09:41; Start 07/04/18 at 20:45 Doxycycline Hyclate (Vibra-Tab) 100 mg BID PO Last administered on 07/07/18at 20:52; Start 07/05/18 at 21:00 Docusate Sodium (Colace) 100 mg BID PO Last administered on 07/07/18at 20:52; Start 07/06/18 at 12:00 Fluticasone Propionate (Flonase) 2 spray DAILY NS ; Start 07/07/18 at 09:00; Status UNV Lactobacillus Rhamnosus (Culturelle) 1 cap BID PO Last administered on 07/07/18at 20:52; Start 07/07/18 at 21:00 Ceftriaxone Sodium (Rocephin) 1 gm Q24H IVP Last administered on 07/07/18at 14:33; Start 07/07/18 at 14:00 Dextrose (Dextrose 50%-Water Syringe) 12.5 gm PRN Q15MIN PRN IV SEE COMMENTS; Start 07/07/18 at 17:30; Status UNV Insulin Human Lispro (HumaLOG) 0-7 UNITS QIDACHS SQ ; Start 07/07/18 at 17:30; Stop 07/07/18 at 17:53; Status DC Dextrose (Dextrose 50%-Water Syringe) 12.5 gm PRN Q15MIN PRN IV SEE COMMENTS; Start 07/07/18 at 17:30 Insulin Human Lispro (HumaLOG) 0-5 UNITS TIDWMEALS SQ Last administered on 07/07at 18:23; Start 07/07/18 at 18:00 Dextrose (Dextrose 50%-Water Syringe) 12.5 gm PRN Q15MIN PRN IV SEE COMMENTS; Start 07/07/18 at 18:00; Status UNV Active Scripts Active Augmentin 875-125 Tablet (Amoxicillin/Potassium Clav) 1 Each Tablet 1 Tab PO BID Tramadol Hcl 50 Mg Tablet 50 Mg PO Q6HRS PRN Prednisone (Prednisone) 10 Mg Tablet 10 Mg PO UD Take 3 tablets by mouth twice a day for 3 days, then take 2 tablets by mouth twice a day for 3 days, then take 1 tablet by mouth twice a day for 3 days, then take 1 tablet by mouth daily x 3 days, then stop. Ativan (Lorazepam) 1 Mg Tablet 1 Mg PO BID Guaifenesin 100 Mg/5 Ml Liquid 200 Mg PO PRN Q4HRS PRN 30 Days Tylenol (Acetaminophen) 325 Mg Tablet 650 Mg PO PRN Q4HRS PRN 10 Days Ventolin Hfa Inhaler (Albuterol Sulfate) 18 Gm Hfa.aer.ad 2 Puff INH Q4HRS Reglan (Metoclopramide Hcl) 10 Mg Tablet 0.5 Tab PO QID 30 Days Albuterol Sulfate Neb Soln (Albuterol Sulfate) 2.5 Mg/3 Ml Vial.neb 1 Vial NEB PRN Q4HRS Reported Furosemide 40 Mg Tablet 1 Tab PO DAILY Vitamin D3 (Cholecalciferol (Vitamin D3)) 5,000 Unit Tablet 5,000 Unit PO DAILY Potassium Chloride 20 Meq Tablet.er 20 Meq PO DAILY Protonix (Pantoprazole Sodium) 20 Mg Tablet.dr 1 Tab PO DAILY Flonase Allergy Relief (Fluticasone Propionate) 9.9 Ml Etlan.susp 2 Sprays NS DAILY Atorvastatin Calcium 10 Mg Tablet 10 Mg PO HS Symbicort 160-4.5 Mcg Inhaler (Budesonide/Formoterol Fumarate) 10.2 Gm Hfa.aer.ad 2 Puff IH BID Vitals/I & O Vital Sign - Last 24 Hours 07/07/18 07/07/18 07/07/18 07/07/18 11:00 11:49 15:00 16:41 Temp 98.7 98.6 98.7 98.6 Pulse 116 101 Resp 18 16 B/P (MAP) 128/82 (97) 120/72 (88) Pulse Ox 97 98 98 O2 Delivery Nasal Cannula Nasal Cannula Nasal Cannula Nasal Cannula O2 Flow Rate 4.0 3.0 4.0 3.0 07/07/18 07/07/18 07/07/18 07/07/18 19:00 19:42 19:54 20:53 Temp 98.5 98.5 Pulse 98 Resp 16 18 B/P (MAP) 121/74 (90) Pulse Ox 98 98 O2 Delivery Nasal Cannula Nasal Cannula Nasal Cannula Nasal Cannula O2 Flow Rate 3.0 3.0 3.0 3.0 07/07/18 07/08/18 07/08/18 07/08/18 23:14 03:46 07:00 07:16 Temp 98.1 98.1 98.0 98.1 98.1 98.0 Pulse 95 89 101 Resp 19 18 18 B/P (MAP) 120/81 (94) 136/96 (109) 105/81 (89) Pulse Ox 98 99 99 99 O2 Delivery Nasal Cannula Nasal Cannula Nasal Cannula Nasal Cannula O2 Flow Rate 3.0 3.0 3.0 3.0 Intake and Output 07/07/18 07/07/18 07/08/18 15:00 23:00 07:00 Intake Total 1075 ml 1050 ml 500 ml Output Total 1800 ml 950 ml 300 ml Balance -725 ml 100 ml [address] Chest - Resolution of previously seen spiculated nodule consistent with a benign inflammatory or infectious nodule. There is a new small groundglass lung infiltrate within the posterior right lower lobe most likely representing atelectasis. Stable compression fractures of T1 and T6. Increase in compression fracture of the superior endplate of T12. New compression fracture of T9. The latter 2 findings are stable from CT study of the thoracic spine performed on July 06, 2018. Note-only 11 ribs. KIRSTIE TREVINO MD July 08, 2018 08:40
--- NOTE | 2018-07-08 11:00 | PDOC ---
PROGRESS NOTES Subjective Subjective He admits continued back pain. Objective Objective Vital Signs Date Time Temp Pulse Resp B/P (MAP) Pulse Ox O2 Delivery O2 Flow Rate FiO2 07/08/18 08:00 Nasal Cannula 3.0 07/08/18 07:16 99 07/08/18 07:00 98.0 101 18 105/81 (89) 98.0 Intake and Output 07/08/18 06:59 Intake Total 2625 ml Output Total 3050 ml Balance -425 ml Intake Oral 2625 ml Output Urine Total 3050 ml # Voids 1 Physical Exam Physical Exam He is sittin at edge of bed and continues with painfully limited thoracic spine and tenderness to palpation over mid thoracic paraspinal muscles and he remains independent with his mobility. Ct scan revealed new T7 vertebral body co mpression fracture. Assessment Assessment Problems Medical Problems: (1) COPD with exacerbation Status: Acute (2) Hyperglycemia Status: Acute (3) Pulmonary embolism Status: Acute (4) Shortness of breath Status: Acute Plan Plan of Care To ask interventional radiology for consideration of T 7 kyphoplasty. Comment Review of Relevant I have reviewed the following items franki (where applicable) has been applied. Labs Laboratory Tests Test 07/07/18 07:17 07/07/18 15:44 07/07/18 17:16 07/07/18 22:35 White Blood Count 6.6 x10^3/uL (4.0-11.0) Red Blood Count 3.51 x10^6/uL (4.30-5.70) Hemoglobin 10.1 g/dL (13.0-17.5) Hematocrit 30.6 % (39.0-53.0) Mean Corpuscular Volume 87 fL (79-100) Mean Corpuscular Hemoglobin 29 pg (25-35) Mean Corpuscular Hemoglobin Concent 33 g/dL (31-37) Red Cell Distribution Width 15.6 % (11.5-14.5) Platelet Count 145 x10^3/uL (140-400) Neutrophils (%) (Auto) 90 % (31-73) Lymphocytes (%) (Auto) 3 % (24-48) Monocytes (%) (Auto) 6 % (0-9) Eosinophils (%) (Auto) 1 % (0-3) Basophils (%) (Auto) 0 % (0-3) Neutrophils # (Auto) 5.9 x10^3uL (1.8-7.7) Lymphocytes # (Auto) 0.2 x10^3/uL (1.0-4.8) Monocytes # (Auto) 0.4 x10^3/uL (0.0-1.1) Eosinophils # (Auto) 0.0 x10^3/uL (0.0-0.7) Basophils # (Auto) 0.0 x10^3/uL (0.0-0.2) Sodium Level 141 mmol/L (136-145) Potassium Level 3.6 mmol/L (3.5-5.1) Chloride Level 101 mmol/L (98-107) Carbon Dioxide Level 37 mmol/L (21-32) Anion Gap 3 (6-14) Blood Urea Nitrogen 15 mg/dL (8-26) Creatinine 0.8 mg/dL (0.7-1.3) Estimated GFR (Cockcroft-Gault) 119.7 Glucose Level 113 mg/dL (70-99) Calcium Level 9.0 mg/dL (8.5-10.1) Glucose (Fingerstick) 328 mg/dL (70-99) 218 mg/dL (70-99) 197 mg/dL (70-99) Test 07/08/18 03:25 07/08/18 07:30 White Blood Count 6.9 x10^3/uL (4.0-11.0) Red Blood Count 3.38 x10^6/uL (4.30-5.70) Hemoglobin 9.8 g/dL (13.0-17.5) Hematocrit 29.6 % (39.0-53.0) Mean Corpuscular Volume 87 fL (79-100) Mean Corpuscular Hemoglobin 29 pg (25-35) Mean Corpuscular Hemoglobin Concent 33 g/dL (31-37) Red Cell Distribution Width 15.6 % (11.5-14.5) Platelet Count 149 x10^3/uL (140-400) Neutrophils (%) (Auto) 89 % (31-73) Lymphocytes (%) (Auto) 4 % (24-48) Monocytes (%) (Auto) 6 % (0-9) Eosinophils (%) (Auto) 0 % (0-3) Basophils (%) (Auto) 0 % (0-3) Neutrophils # (Auto) 6.1 x10^3uL (1.8-7.7) Lymphocytes # (Auto) 0.3 x10^3/uL (1.0-4.8) Monocytes # (Auto) 0.4 x10^3/uL (0.0-1.1) Eosinophils # (Auto) 0.0 x10^3/uL (0.0-0.7) Basophils # (Auto) 0.0 x10^3/uL (0.0-0.2) Sodium Level 140 mmol/L (136-145) Potassium Level 3.6 mmol/L (3.5-5.1) Chloride Level 100 mmol/L (98-107) Carbon Dioxide Level 36 mmol/L (21-32) Anion Gap 4 (6-14) Blood Urea Nitrogen 14 mg/dL (8-26) Creatinine 0.8 mg/dL (0.7-1.3) Estimated GFR (Cockcroft-Gault) 119.7 Glucose Level 145 mg/dL (70-99) Calcium Level 9.0 mg/dL (8.5-10.1) Glucose (Fingerstick) 128 mg/dL (70-99) Laboratory Tests Test 07/07/18 15:44 07/07/18 17:16 07/07/18 22:35 07/08/18 03:25 Glucose (Fingerstick) 328 mg/dL (70-99) 218 mg/dL (70-99) 197 mg/dL (70-99) White Blood Count 6.9 x10^3/uL (4.0-11.0) Red Blood Count 3.38 x10^6/uL (4.30-5.70) Hemoglobin 9.8 g/dL (13.0-17.5) Hematocrit 29.6 % (39.0-53.0) Mean Corpuscular Volume 87 fL (79-100) Mean Corpuscular Hemoglobin 29 pg (25-35) Mean Corpuscular Hemoglobin Concent 33 g/dL (31-37) Red Cell Distribution Width 15.6 % (11.5-14.5) Platelet Count 149 x10^3/uL (140-400) Neutrophils (%) (Auto) 89 % (31-73) Lymphocytes (%) (Auto) 4 % (24-48) Monocytes (%) (Auto) 6 % (0-9) Eosinophils (%) (Auto) 0 % (0-3) Basophils (%) (Auto) 0 % (0-3) Neutrophils # (Auto) 6.1 x10^3uL (1.8-7.7) Lymphocytes # (Auto) 0.3 x10^3/uL (1.0-4.8) Monocytes # (Auto) 0.4 x10^3/uL (0.0-1.1) Eosinophils # (Auto) 0.0 x10^3/uL (0.0-0.7) Basophils # (Auto) 0.0 x10^3/uL (0.0-0.2) Sodium Level 140 mmol/L (136-145) Potassium Level 3.6 mmol/L (3.5-5.1) Chloride Level 100 mmol/L (98-107) Carbon Dioxide Level 36 mmol/L (21-32) Anion Gap 4 (6-14) Blood Urea Nitrogen 14 mg/dL (8-26) Creatinine 0.8 mg/dL (0.7-1.3) Estimated GFR (Cockcroft-Gault) 119.7 Glucose Level 145 mg/dL (70-99) Calcium Level 9.0 mg/dL (8.5-10.1) Test 07/08/18 07:30 Glucose (Fingerstick) 128 mg/dL (70-99) Microbiology 07/05/18 Blood Culture - Final, Complete Medications Current Medications Albuterol/ Ipratropium (Duoneb) 3 ml 1X ONCE NEB Last administered on 07/04/18at 16:30; Start 07/04/18 at 16:30; Stop 07/04/18 at 16:31; Status DC Methylprednisolone Sodium Succinate (SOLU-Medrol 125MG VIAL) 125 mg 1X ONCE IV Last administered on 07/04/18at 16:55; Start 07/04/18 at 16:30; Stop 07/04/18 at 16:31; Status DC Acetaminophen/ Hydrocodone Bitart (Lortab 5325) 2 tab 1X ONCE PO Last administered on 07/04/18at 16:54; Start 07/04/18 at 16:30; Stop 07/04/18 at 16:31; Status DC Albuterol/ Ipratropium (Duoneb) 3 ml RTQID NEB Last administered on 07/08/18 07:16; Start 07/04/18 at 20:00 Guaifenesin (Robitussin Dm) 10 ml PRN Q6HRS PRN PO COUGH; Start 07/04/18 at 17:00 Acetaminophen (Tylenol) 650 mg PRN Q4HRS PRN PO TEMP OVER 100.4F OR MILD PAIN; Start 07/04/18 at 17:00; Status UNV Atorvastatin Calcium (Lipitor) 10 mg HS PO Last administered on 07/07/18 20:52; Start 07/04/18 at 21:00 Furosemide (Lasix) 40 mg DAILY PO Last administered on 07/08/18 08:29; Start 07/05/18 at 09:00 Lorazepam (Ativan) 1 mg BID PO Last administered on 07/08/18 08:28; Start 07/04/18 at 21:00 Metoclopramide HCl (Reglan) 5 mg QIDACHS PO Last administered on 07/08/18 08:28; Start 07/04/18 at 18:00 Tramadol HCl (Ultram) 50 mg PRN Q6HRS PRN PO PAIN Last administered on 07/07/18 20:53; Start 07/04/18 at 17:00 Vitamin D (Vitamin D3) 5,000 unit DAILY PO Last administered on 07/08/18 08:26; Start 07/05/18 at 09:00 Fluticasone Propionate (Flonase) 2 spray DAILY NS Last administered on 07/08/18 08:39; Start 07/05/18 at 09:00 Pantoprazole Sodium (Protonix) 40 mg DAILYAC PO Last administered on 07/08/18 08:29; Start 07/05/18 at 07:30 Potassium Chloride (Klor-Con) 20 meq DAILYWBKFT PO Last administered on 07/08/18 08:29; Start 07/05/18 at 08:00 Prednisone (Prednisone) 60 mg DAILY PO Last administered on 07/08/18 08:28; Start 07/05/18 at 09:00 Temazepam (Restoril) 7.5 mg PRN QHS PRN PO INSOMNIA Last administered on 07/07/18 20:52; Start 07/04/18 at 17:15 Lidocaine (Lidoderm) 1 patch DAILY TD Last administered on 07/08/18at 08:27; Start 07/05/18 at 09:00 Rivaroxaban (Xarelto) 15 mg BIDWMEALS PO Last administered on 07/08/18at 08:29; Start 07/04/18 at 21:00 Sodium Chloride 1,000 ml @ 1,000 mls/hr 1X ONCE IV Last administered on 07/04/18at 18:35; Start 07/04/18 at 17:15; Stop 07/04/18 at 18:14; Status DC Sodium Chloride 1,000 ml @ 1,000 mls/hr 1X ONCE IV Last administered on 07/04/18at 20:05; Start 07/04/18 at 17:15; Stop 07/04/18 at 18:14; Status DC Ceftriaxone Sodium (Rocephin) 1 gm 1X ONCE IVP Last administered on 07/04/18at 20:21; Start 07/04/18 at 17:15; Stop 07/04/18 at 17:23; Status DC Ondansetron HCl (Zofran) 4 mg PRN Q8HRS PRN IV NAUSEA/VOMITING; Start 07/04/18 at 18:30; Stop 07/05/18 at 18:29; Status DC Morphine Sulfate (Morphine Sulfate) 2 mg PRN Q2HR PRN IV PAIN; Start 07/04/18 at 18:30; Stop 07/05/18 at 18:29; Status DC Acetaminophen (Tylenol) 650 mg PRN Q4HRS PRN PO FEVER; Start 07/04/18 at 18:30; Stop 07/05/18 at 18:29; Status DC Albuterol/ Ipratropium (Duoneb) 3 ml RTQID NEB ; Start 07/04/18 at 20:00; Stop 07/05/18 at 19:59; Status UNV Info (Anti-Coagulation Monitoring By Pharmacy) 1 each PRN DAILY PRN MC SEE COMMENTS Last administered on 07/05/18at 09:41; Start 07/04/18 at 20:45 Doxycycline Hyclate (Vibra-Tab) 100 mg BID PO Last administered on 07/08/18at 08:29; Start 07/05/18 at 21:00 Docusate Sodium (Colace) 100 mg BID PO Last administered on 07/08/18at 08:28; Start 07/06/18 at 12:00 Fluticasone Propionate (Flonase) 2 spray DAILY NS ; Start 07/07/18 at 09:00; Status UNV Lactobacillus Rhamnosus (Culturelle) 1 cap BID PO Last administered on 07/08/18at 08:29; Start 07/07/18 at 21:00 Ceftriaxone Sodium (Rocephin) 1 gm Q24H IVP Last administered on 07/07/18at 14:33; Start 07/07/18 at 14:00 Dextrose (Dextrose 50%-Water Syringe) 12.5 gm PRN Q15MIN PRN IV SEE COMMENTS; Start 07/07/18 at 17:30; Status UNV Insulin Human Lispro (HumaLOG) 0-7 UNITS QIDACHS SQ ; Start 07/07/18 at 17:30; Stop 07/07/18 at 17:53; Status DC Dextrose (Dextrose 50%-Water Syringe) 12.5 gm PRN Q15MIN PRN IV SEE COMMENTS; Start 07/07/18 at 17:30 Insulin Human Lispro (HumaLOG) 0-5 UNITS TIDWMEALS SQ Last administered on 07/07/18at 18:23; Start 07/07/18 at 18:00 Dextrose (Dextrose 50%-Water Syringe) 12.5 gm PRN Q15MIN PRN IV SEE COMMENTS; Start 07/07/18 at 18:00; Status UNV Active Scripts Active Augmentin 875-125 Tablet (Amoxicillin/Potassium Clav) 1 Each Tablet 1 Tab PO BID Tramadol Hcl 50 Mg Tablet 50 Mg PO Q6HRS PRN Prednisone (Prednisone) 10 Mg Tablet 10 Mg PO UD Take 3 tablets by mouth twice a day for 3 days, then take 2 tablets by mouth twice a day for 3 days, then take 1 tablet by mouth twice a day for 3 days, then take 1 tablet by mouth daily x 3 days, then stop. Ativan (Lorazepam) 1 Mg Tablet 1 Mg PO BID Guaifenesin 100 Mg/5 Ml Liquid 200 Mg PO PRN Q4HRS PRN 30 Days Tylenol (Acetaminophen) 325 Mg Tablet 650 Mg PO PRN Q4HRS PRN 10 Days Ventolin Hfa Inhaler (Albuterol Sulfate) 18 Gm Hfa.aer.ad 2 Puff INH Q4HRS Reglan (Metoclopramide Hcl) 10 Mg Tablet 0.5 Tab PO QID 30 Days Albuterol Sulfate Neb Soln (Albuterol Sulfate) 2.5 Mg/3 Ml Vial.neb 1 Vial NEB PRN Q4HRS Reported Furosemide 40 Mg Tablet 1 Tab PO DAILY Vitamin D3 (Cholecalciferol (Vitamin D3)) 5,000 Unit Tablet 5,000 Unit PO DAILY Potassium Chloride 20 Meq Tablet.er 20 Meq PO DAILY Protonix (Pantoprazole Sodium) 20 Mg Tablet.dr 1 Tab PO DAILY Flonase Allergy Relief (Fluticasone Propionate) 9.9 Ml [place].susp 2 Sprays NS DAILY Atorvastatin Calcium 10 Mg Tablet 10 Mg PO HS Symbicort 160-4.5 Mcg Inhaler (Budesonide/Formoterol Fumarate) 10.2 Gm Hfa.aer.ad 2 Puff IH BID Vitals/I & O Vital Sign - Last 24 Hours 07/07/18 07/07/18 07/07/18 07/07/18 11:00 11:49 15:00 16:41 Temp 98.7 98.6 98.7 98.6 Pulse 116 101 Resp 18 16 B/P (MAP) 128/82 (97) 120/72 (88) Pulse Ox 97 98 98 O2 Delivery Nasal Cannula Nasal Cannula Nasal Cannula Nasal Cannula O2 Flow Rate 4.0 3.0 4.0 3.0 07/07/18 07/07/18 07/07/18 07/07/18 19:00 19:42 19:54 20:53 Temp 98.5 98.5 Pulse 98 Resp 18 B/P (MAP) 121/74 (90) Pulse Ox 98 98 O2 Delivery Nasal Cannula Nasal Cannula Nasal Cannula Nasal Cannula O2 Flow Rate 3.0 3.0 3.0 3.0 07/07/18 07/08/18 07/08/18 07/08/18 23:14 03:46 07:00 07:16 Temp 98.1 98.1 98.0 98.1 98.1 98.0 Pulse 95 89 101 Resp 18 18 B/P (MAP) 120/81 (94) 136/96 (109) 105/81 (89) Pulse Ox 98 99 99 99 O2 Delivery Nasal Cannula Nasal Cannula Nasal Cannula Nasal Cannula O2 Flow Rate 3.0 3.0 3.0 3.0 07/08/18 08:00 O2 Delivery Nasal Cannula O2 Flow Rate 3.0 Intake and Output 07/07/18 07/07/18 07/08/18 14:59 22:59 06:59 Intake Total 1075 ml 1050 ml 500 ml Output Total 1800 ml 950 ml 300 ml Balance -725 ml 100 ml 200 ml SHELLY GOOD MD July 08, 2018 11:00
[2018-07-08 11:05] VITALS: BP 131/87
[2018-07-08] MEDS: traMADol 50 MG TABLET PO PRN ×2 (11:09→16:39)
[2018-07-08] MEDS: cefTRIAXone IV Push 1 GM VIAL. IVP SCH (14:25)
[2018-07-08 15:03] VITALS: BP 103/70
--- NOTE | 2018-07-08 16:14 | PDOC ---
PULMONARY PROGRESS NOTES Subjective still soa at times back pain not helping Vitals Vital Signs Date Time Temp Pulse Resp B/P (MAP) Pulse Ox O2 Delivery O2 Flow Rate FiO2 07/08/18 16:02 98 Nasal Cannula 3.0 07/08/18 15:03 99.0 114 18 103/70 (81) 99.0 ROS: No Nausea General: Alert, No acute distress Lungs: Crackles (a few end exp wheezing), Other Cardiovascular: S1, S2 Abdomen: Soft, Non-tender Neuro Exam: Alert Extremities: No Edema, Other Skin: Warm Labs Laboratory Tests Test 07/07/18 07:17 07/07/18 15:44 07/07/18 17:16 07/07/18 22:35 White Blood Count 6.6 x10^3/uL (4.0-11.0) Red Blood Count 3.51 x10^6/uL (4.30-5.70) Hemoglobin 10.1 g/dL (13.0-17.5) Hematocrit 30.6 % (39.0-53.0) Mean Corpuscular Volume 87 fL (79-100) Mean Corpuscular Hemoglobin 29 pg (25-35) Mean Corpuscular Hemoglobin Concent 33 g/dL (31-37) Red Cell Distribution Width 15.6 % (11.5-14.5) Platelet Count 145 x10^3/uL (140-400) Neutrophils (%) (Auto) 90 % (31-73) Lymphocytes (%) (Auto) 3 % (24-48) Monocytes (%) (Auto) 6 % (0-9) Eosinophils (%) (Auto) 1 % (0-3) Basophils (%) (Auto) 0 % (0-3) Neutrophils # (Auto) 5.9 x10^3uL (1.8-7.7) Lymphocytes # (Auto) 0.2 x10^3/uL (1.0-4.8) Monocytes # (Auto) 0.4 x10^3/uL (0.0-1.1) Eosinophils # (Auto) 0.0 x10^3/uL (0.0-0.7) Basophils # (Auto) 0.0 x10^3/uL (0.0-0.2) Sodium Level 141 mmol/L (136-145) Potassium Level 3.6 mmol/L (3.5-5.1) Chloride Level 101 mmol/L (98-107) Carbon Dioxide Level 37 mmol/L (21-32) Anion Gap 3 (6-14) Blood Urea Nitrogen 15 mg/dL (8-26) Creatinine 0.8 mg/dL (0.7-1.3) Estimated GFR (Cockcroft-Gault) 119.7 Glucose Level 113 mg/dL (70-99) Calcium Level 9.0 mg/dL (8.5-10.1) Glucose (Fingerstick) 328 mg/dL (70-99) 218 mg/dL (70-99) 197 mg/dL (70-99) Test 07/08/18 03:25 07/08/18 07:30 07/08/18 11:28 White Blood Count 6.9 x10^3/uL (4.0-11.0) Red Blood Count 3.38 x10^6/uL (4.30-5.70) Hemoglobin 9.8 g/dL (13.0-17.5) Hematocrit 29.6 % (39.0-53.0) Mean Corpuscular Volume 87 fL (79-100) Mean Corpuscular Hemoglobin 29 pg (25-35) Mean Corpuscular Hemoglobin Concent 33 g/dL (31-37) Red Cell Distribution Width 15.6 % (11.5-14.5) Platelet Count 149 x10^3/uL (140-400) Neutrophils (%) (Auto) 89 % (31-73) Lymphocytes (%) (Auto) 4 % (24-48) Monocytes (%) (Auto) 6 % (0-9) Eosinophils (%) (Auto) 0 % (0-3) Basophils (%) (Auto) 0 % (0-3) Neutrophils # (Auto) 6.1 x10^3uL (1.8-7.7) Lymphocytes # (Auto) 0.3 x10^3/uL (1.0-4.8) Monocytes # (Auto) 0.4 x10^3/uL (0.0-1.1) Eosinophils # (Auto) 0.0 x10^3/uL (0.0-0.7) Basophils # (Auto) 0.0 x10^3/uL (0.0-0.2) Sodium Level 140 mmol/L (136-145) Potassium Level 3.6 mmol/L (3.5-5.1) Chloride Level 100 mmol/L (98-107) Carbon Dioxide Level 36 mmol/L (21-32) Anion Gap 4 (6-14) Blood Urea Nitrogen 14 mg/dL (8-26) Creatinine 0.8 mg/dL (0.7-1.3) Estimated GFR (Cockcroft-Gault) 119.7 Glucose Level 145 mg/dL (70-99) Calcium Level 9.0 mg/dL (8.5-10.1) Glucose (Fingerstick) 128 mg/dL (70-99) 346 mg/dL (70-99) Laboratory Tests Test 07/07/18 17:16 07/07/18 22:35 07/08/18 03:25 07/08/18 07:30 Glucose (Fingerstick) 218 mg/dL (70-99) 197 mg/dL (70-99) 128 mg/dL (70-99) White Blood Count 6.9 x10^3/uL (4.0-11.0) Red Blood Count 3.38 x10^6/uL (4.30-5.70) Hemoglobin 9.8 g/dL (13.0-17.5) Hematocrit 29.6 % (39.0-53.0) Mean Corpuscular Volume 87 fL (79-100) Mean Corpuscular Hemoglobin 29 pg (25-35) Mean Corpuscular Hemoglobin Concent 33 g/dL (31-37) Red Cell Distribution Width 15.6 % (11.5-14.5) Platelet Count 149 x10^3/uL (140-400) Neutrophils (%) (Auto) 89 % (31-73) Lymphocytes (%) (Auto) 4 % (24-48) Monocytes (%) (Auto) 6 % (0-9) Eosinophils (%) (Auto) 0 % (0-3) Basophils (%) (Auto) 0 % (0-3) Neutrophils # (Auto) 6.1 x10^3uL (1.8-7.7) Lymphocytes # (Auto) 0.3 x10^3/uL (1.0-4.8) Monocytes # (Auto) 0.4 x10^3/uL (0.0-1.1) Eosinophils # (Auto) 0.0 x10^3/uL (0.0-0.7) Basophils # (Auto) 0.0 x10^3/uL (0.0-0.2) Sodium Level 140 mmol/L (136-145) Potassium Level 3.6 mmol/L (3.5-5.1) Chloride Level 100 mmol/L (98-107) Carbon Dioxide Level 36 mmol/L (21-32) Anion Gap 4 (6-14) Blood Urea Nitrogen 14 mg/dL (8-26) Creatinine 0.8 mg/dL (0.7-1.3) Estimated GFR (Cockcroft-Gault) 119.7 Glucose Level 145 mg/dL (70-99) Calcium Level 9.0 mg/dL (8.5-10.1) Test 07/08/18 11:28 Glucose (Fingerstick) 346 mg/dL (70-99) Medications Active Scripts Medications Dose Route/Sig Max Daily Dose Days Date Category Dose Instructions Augmentin 875-125 Tablet (Amoxicillin/Potassium Clav) 1 Each Tablet 1 Tab PO BID 06/25/18 Rx Tramadol Hcl 50 Mg Tablet 50 Mg PO Q6HRS PRN 06/25/18 Rx Prednisone (Prednisone) 10 Mg Tablet 10 Mg PO UD 06/25/18 Rx Take 3 tablets by mouth twice a day for 3 days, then take 2 tablets by mouth twice a day for 3 days, then take 1 tablet by mouth twice a day for 3 days, then take 1 tablet by mouth daily x 3 days, then stop. Furosemide 40 Mg Tablet 1 Tab PO DAILY 06/20/18 Reported Ativan (Lorazepam) 1 Mg Tablet 1 Mg PO BID 06/15/18 Rx Guaifenesin 100 Mg/5 Ml Liquid 200 Mg PO PRN Q4HRS PRN 30 05/30/18 Rx Tylenol (Acetaminophen) 325 Mg Tablet 650 Mg PO PRN Q4HRS PRN 10 05/30/18 Rx Ventolin Hfa Inhaler (Albuterol Sulfate) 18 Gm Hfa.aer.ad 2 Puff INH Q4HRS 05/10/18 Rx Vitamin D3 (Cholecalciferol (Vitamin D3)) 5,000 Unit Tablet 5,000 Unit PO DAILY 03/15/18 Reported Reglan (Metoclopramide Hcl) 10 Mg Tablet 0.5 Tab PO QID 30 02/14/18 Rx Potassium Chloride 20 Meq Tablet.er 20 Meq PO DAILY 01/13/18 Reported Protonix (Pantoprazole Sodium) 20 Mg Tablet.dr 1 Tab PO DAILY 11/18/17 Reported Flonase Allergy Relief (Fluticasone Propionate) 9.9 Ml [place].susp 2 Sprays NS DAILY 11/18/17 Reported Atorvastatin Calcium 10 Mg Tablet 10 Mg PO HS 08/21/17 Reported Albuterol Sulfate Neb Soln (Albuterol Sulfate) 2.5 Mg/3 Ml Vial.neb 1 Vial NEB PRN Q4HRS 07/10/17 Rx Symbicort 160-4.5 Mcg Inhaler (Budesonide/Formoterol Fumarate) 10.2 Gm Hfa.aer.ad 2 Puff IH BID 09/21/15 Reported Comments reviewed, 05/30/18 ct 1. Severe emphysema with a prominent bullous component on the left. 2. Chronic pleural/parenchymal scarring. 3. New small spiculated opacity in the right lower lobe which may be inflammatory or neoplastic. CT follow-up is suggested. Impression . IMPRESSION: 1. [id number] hypoxemic hypercapnic respiratory failure. 2. Acute exacerbation of chronic obstructive pulmonary disease. 3. Recent pulmonary embolism diagnosed at [facility] approximately a week ago. The patient presented on Xarelto. 4. Epistaxis and left subconjunctival hemorrhage, resulting from cough and increased pressure. resolved 5. Hypertension. 6. Depression. 7. Tobacco dependence, in remission. 8. abnl ct of chest, rll density 9. allergic rhinitis 10. compressive fracture lower back 07/07 IMPRESSION: Resolution of previously seen spiculated nodule consistent with a benign inflammatory or infectious nodule. There is a new small groundglass lung infiltrate within the posterior right lower lobe most likely representing atelectasis. Stable compression fractures of T1 and T6. Increase in compression fracture of the superior endplate of T12. New compression fracture of T9. The latter 2 findings are stable from CT study of the thoracic spine performed on July 06, 2018. Note-only 11 ribs. Plan . decrease pred possible kyphoplasty nebs continue same otherwise SCOTT COOK MD July 08, 2018 16:14
[2018-07-08] MEDS ORDERED: INSULIN LISPRO 300 UNITS/3 ML INSULN.PEN. SQ ONE (17:00)
[2018-07-08] MEDS ORDERED: DEXTROSE 50% 25 GM / 50ML DISP.SYRIN. IV PRN (17:00)
[2018-07-08] MEDS ORDERED: [UNRECOGNIZED DRUG - REMARK] MC PRN (17:00)
[2018-07-08 19:56] VITALS: BP 127/82
[2018-07-08] MEDS: ATORVASTATIN CALCIUM 10 MG TABLET. PO SCH (20:49)
[2018-07-08 22:27] VITALS: BP 152/78
[2018-07-09 03:15] VITALS: BP 127/88
[2018-07-09 04:41] LABS: BASO % 0 % (0-3); EOS % 0 % (0-3); HEMATOCRIT 29.3 % (39.0-53.0); HEMOGLOBIN 9.7 g/dL (13.0-17.5); LYMPH # 0.3 x10^3/uL (1.0-4.8); LYMPH % 4 % (24-48); MEAN CORPUSCULAR HEMOGLOBIN 29 pg (25-35); MEAN CORPUSCULAR HGB CONC 33 g/dL (31-37); MEAN CORPUSCULAR VOLUME 87 fL (79-100); MONO # 0.4 x10^3/uL (0.0-1.1); MONO % 6 % (0-9); NEUT # 6.2 x10^3uL (1.8-7.7); NEUT % 89 % (31-73); PLATELET COUNT 141 x10^3/uL (140-400); RED BLOOD COUNT 3.38 x10^6/uL (4.30-5.70); RED CELL DISTRIBUTION WIDTH 15.2 % (11.5-14.5); WHITE BLOOD COUNT 6.9 x10^3/uL (4.0-11.0)
[2018-07-09 04:55] LABS: CALCIUM 8.9 mg/dL (8.5-10.1); CREATININE 0.8 mg/dL (0.7-1.3); GFR 119.7; POTASSIUM 3.6 mmol/L (3.5-5.1)
[2018-07-09] MEDS: IPRATRPIUM/ALBUTEROL 0.5/2.5MG 3 ML NEBU. NEB SCH ×3 (06:10→20:34)
[2018-07-09 07:00] VITALS: BP 112/84
[2018-07-09] MEDS: INSULIN LISPRO 300 UNITS/3 ML INSULN.PEN. SQ SCH ×4 (07:30→21:00)
--- NOTE | 2018-07-09 08:15 | PDOC ---
PROGRESS NOTES Chief Complaint Chief Complaint Stage COPD, end stage. 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 Still short of breath and having back pain Agreeable to SNU placement Will be difficult, have to d/w IR for kyphoplasty because he needs a nticoagulation as well, has been continued on his xarelto which was held 07/08/18, transition to lovenox today, hold in the morning for kyphoplasty tomorrow Vitals Vitals Vital Signs Date Time Temp Pulse Resp B/P (MAP) Pulse Ox O2 Delivery O2 Flow Rate FiO2 07/09/18 07:00 98.0 89 14 112/84 (93) 98 Nasal Cannula 3.0 98.0 Physical Exam General: Alert, Oriented X3, Cooperative, No acute distress Lungs: Crackles (a few end exp wheezing), Other Abdomen: Normal bowel sounds, Soft, No tenderness, No hepatosplenomegaly, No masses Extremities: No clubbing, No cyanosis, No edema, Normal pulses, No t enderness/swelling Skin: Other (very dry skin, skin atrophy visible from chronic steroid use) Labs LABS Laboratory Tests Test 07/08/18 11:28 07/08/18 16:46 07/08/18 20:24 07/09/18 04:00 Glucose (Fingerstick) 346 mg/dL (70-99) 373 mg/dL (70-99) 334 mg/dL (70-99) White Blood Count 6.9 x10^3/uL (4.0-11.0) Red Blood Count 3.38 x10^6/uL (4.30-5.70) Hemoglobin 9.7 g/dL (13.0-17.5) Hematocrit 29.3 % (39.0-53.0) Mean Corpuscular Volume 87 fL (79-100) Mean Corpuscular Hemoglobin 29 pg (25-35) Mean Corpuscular Hemoglobin Concent 33 g/dL (31-37) Red Cell Distribution Width 15.2 % (11.5-14.5) Platelet Count 141 x10^3/uL (140-400) Neutrophils (%) (Auto) 89 % (31-73) Lymphocytes (%) (Auto) 4 % (24-48) Monocytes (%) (Auto) 6 % (0-9) Eosinophils (%) (Auto) 0 % (0-3) Basophils (%) (Auto) 0 % (0-3) Neutrophils # (Auto) 6.2 x10^3uL (1.8-7.7) Lymphocytes # (Auto) 0.3 x10^3/uL (1.0-4.8) Monocytes # (Auto) 0.4 x10^3/uL (0.0-1.1) Eosinophils # (Auto) 0.0 x10^3/uL (0.0-0.7) Basophils # (Auto) 0.0 x10^3/uL (0.0-0.2) Sodium Level 141 mmol/L (136-145) Potassium Level 3.6 mmol/L (3.5-5.1) Chloride Level 100 mmol/L (98-107) Carbon Dioxide Level 36 mmol/L (21-32) Anion Gap 5 (6-14) Blood Urea Nitrogen 14 mg/dL (8-26) Creatinine 0.8 mg/dL (0.7-1.3) Estimated GFR (Cockcroft-Gault) 119.7 Glucose Level 137 mg/dL (70-99) Calcium Level 8.9 mg/dL (8.5-10.1) Test 07/09/18 07:12 Glucose (Fingerstick) 124 mg/dL (70-99) Assessment and Plan Assessmemt and Plan Problems Medical Problems: (1) COPD with exacerbation Status: Acute (2) Hyperglycemia Status: Acute (3) Pulmonary embolism Status: Acute (4) Shortness of breath Status: Acute Comment Review of Relevant I have reviewed the following items franki (where applicable) has been applied. Labs Laboratory Tests Test 07/07/18 15:44 07/07/18 17:16 07/07/18 22:35 07/08/18 03:25 Glucose (Fingerstick) 328 mg/dL (70-99) 218 mg/dL (70-99) 197 mg/dL (70-99) White Blood Count 6.9 x10^3/uL (4.0-11.0) Red Blood Count 3.38 x10^6/uL (4.30-5.70) Hemoglobin 9.8 g/dL (13.0-17.5) Hematocrit 29.6 % (39.0-53.0) Mean Corpuscular Volume 87 fL (79-100) Mean Corpuscular Hemoglobin 29 pg (25-35) Mean Corpuscular Hemoglobin Concent 33 g/dL (31-37) Red Cell Distribution Width 15.6 % (11.5-14.5) Platelet Count 149 x10^3/uL (140-400) Neutrophils (%) (Auto) 89 % (31-73) Lymphocytes (%) (Auto) 4 % (24-48) Monocytes (%) (Auto) 6 % (0-9) Eosinophils (%) (Auto) 0 % (0-3) Basophils (%) (Auto) 0 % (0-3) Neutrophils # (Auto) 6.1 x10^3uL (1.8-7.7) Lymphocytes # (Auto) 0.3 x10^3/uL (1.0-4.8) Monocytes # (Auto) 0.4 x10^3/uL (0.0-1.1) Eosinophils # (Auto) 0.0 x10^3/uL (0.0-0.7) Basophils # (Auto) 0.0 x10^3/uL (0.0-0.2) Sodium Level 140 mmol/L (136-145) Potassium Level 3.6 mmol/L (3.5-5.1) Chloride Level 100 mmol/L (98-107) Carbon Dioxide Level 36 mmol/L (21-32) Anion Gap 4 (6-14) Blood Urea Nitrogen 14 mg/dL (8-26) Creatinine 0.8 mg/dL (0.7-1.3) Estimated GFR (Cockcroft-Gault) 119.7 Glucose Level 145 mg/dL (70-99) Calcium Level 9.0 mg/dL (8.5-10.1) Test 07/08/18 07:30 07/08/18 11:28 07/08/18 16:46 07/08/18 20:24 Glucose (Fingerstick) 128 mg/dL (70-99) 346 mg/dL (70-99) 373 mg/dL (70-99) 334 mg/dL (70-99) Test 07/09/18 04:00 07/09/18 07:12 White Blood Count 6.9 x10^3/uL (4.0-11.0) Red Blood Count 3.38 x10^6/uL (4.30-5.70) Hemoglobin 9.7 g/dL (13.0-17.5) Hematocrit 29.3 % (39.0-53.0) Mean Corpuscular Volume 87 fL (79-100) Mean Corpuscular Hemoglobin 29 pg (25-35) Mean Corpuscular Hemoglobin Concent 33 g/dL (31-37) Red Cell Distribution Width 15.2 % (11.5-14.5) Platelet Count 141 x10^3/uL (140-400) Neutrophils (%) (Auto) 89 % (31-73) Lymphocytes (%) (Auto) 4 % (24-48) Monocytes (%) (Auto) 6 % (0-9) Eosinophils (%) (Auto) 0 % (0-3) Basophils (%) (Auto) 0 % (0-3) Neutrophils # (Auto) 6.2 x10^3uL (1.8-7.7) Lymphocytes # (Auto) 0.3 x10^3/uL (1.0-4.8) Monocytes # (Auto) 0.4 x10^3/uL (0.0-1.1) Eosinophils # (Auto) 0.0 x10^3/uL (0.0-0.7) Basophils # (Auto) 0.0 x10^3/uL (0.0-0.2) Sodium Level 141 mmol/L (136-145) Potassium Level 3.6 mmol/L (3.5-5.1) Chloride Level 100 mmol/L (98-107) Carbon Dioxide Level 36 mmol/L (21-32) Anion Gap 5 (6-14) Blood Urea Nitrogen 14 mg/dL (8-26) Creatinine 0.8 mg/dL (0.7-1.3) Estimated GFR (Cockcroft-Gault) 119.7 Glucose Level 137 mg/dL (70-99) Calcium Level 8.9 mg/dL (8.5-10.1) Glucose (Fingerstick) 124 mg/dL (70-99) Laboratory Tests Test 07/08/18 11:28 07/08/18 16:46 07/08/18 20:24 07/09/18 04:00 Glucose (Fingerstick) 346 mg/dL (70-99) 373 mg/dL (70-99) 334 mg/dL (70-99) White Blood Count 6.9 x10^3/uL (4.0-11.0) Red Blood Count 3.38 x10^6/uL (4.30-5.70) Hemoglobin 9.7 g/dL (13.0-17.5) Hematocrit 29.3 % (39.0-53.0) Mean Corpuscular Volume 87 fL (79-100) Mean Corpuscular Hemoglobin 29 pg (25-35) Mean Corpuscular Hemoglobin Concent 33 g/dL (31-37) Red Cell Distribution Width 15.2 % (11.5-14.5) Platelet Count 141 x10^3/uL (140-400) Neutrophils (%) (Auto) 89 % (31-73) Lymphocytes (%) (Auto) 4 % (24-48) Monocytes (%) (Auto) 6 % (0-9) Eosinophils (%) (Auto) 0 % (0-3) Basophils (%) (Auto) 0 % (0-3) Neutrophils # (Auto) 6.2 x10^3uL (1.8-7.7) Lymphocytes # (Auto) 0.3 x10^3/uL (1.0-4.8) Monocytes # (Auto) 0.4 x10^3/uL (0.0-1.1) Eosinophils # (Auto) 0.0 x10^3/uL (0.0-0.7) Basophils # (Auto) 0.0 x10^3/uL (0.0-0.2) Sodium Level 141 mmol/L (136-145) Potassium Level 3.6 mmol/L (3.5-5.1) Chloride Level 100 mmol/L (98-107) Carbon Dioxide Level 36 mmol/L (21-32) Anion Gap 5 (6-14) Blood Urea Nitrogen 14 mg/dL (8-26) Creatinine 0.8 mg/dL (0.7-1.3) Estimated GFR (Cockcroft-Gault) 119.7 Glucose Level 137 mg/dL (70-99) Calcium Level 8.9 mg/dL (8.5-10.1) Test 07/09/18 07:12 Glucose (Fingerstick) 124 mg/dL (70-99) Microbiology 07/05/18 Blood Culture - Final, Complete Medications Current Medications Albuterol/ Ipratropium (Duoneb) 3 ml 1X ONCE NEB Last administered on 07/04/18 16:30; Start 07/04/18 at 16:30; Stop 07/04/18 at 16:31; Status DC Methylprednisolone Sodium Succinate (SOLU-Medrol 125MG VIAL) 125 mg 1X ONCE IV Last administered on 07/04/18 16:55; Start 07/04/18 at 16:30; Stop 07/04/18 at 16:31; Status DC Acetaminophen/ Hydrocodone Bitart (Lortab 5/325) 2 tab 1X ONCE PO Last administered on 07/04/18at 16:54; Start 07/04/18 at 16:30; Stop 07/04/18 at 16: 31; Status DC Albuterol/ Ipratropium (Duoneb) 3 ml RTQID NEB Last administered on 07/09/18 06:10; Start 07/04/18 at 20:00 Guaifenesin (Robitussin Dm) 10 ml PRN Q6HRS PRN PO COUGH; Start 07/04/18 at 17:00 Acetaminophen (Tylenol) 650 mg PRN Q4HRS PRN PO TEMP OVER 100.4F OR MILD PAIN; Start 07/04/18 at 17:00; Status UNV Atorvastatin Calcium (Lipitor) 10 mg HS PO Last administered on 07/08/18 20:49; Start 07/04/18 at 21:00 Furosemide (Lasix) 40 mg DAILY PO Last administered on 07/08/18at 08:29; Start 07/05/18 at 09:00 Lorazepam (Ativan) 1 mg BID PO Last administered on 07/08/18 20:48; Start 07/04/18 at 21:00 Metoclopramide HCl (Reglan) 5 mg QIDACHS PO Last administered on 07/08/18at 20:49; Start 07/04/18 at 18:00 Tramadol HCl (Ultram) 50 mg PRN Q6HRS PRN PO PAIN Last administered on 07/08/18 16:39; Start 07/04/18 at 17:00 Vitamin D (Vitamin D3) 5,000 unit DAILY PO Last administered on 07/08/18 08:26; Start 07/05/18 at 09:00 Fluticasone Propionate (Flonase) 2 spray DAILY NS Last administered on 07/08 08:39; Start 07/05/18 at 09:00 Pantoprazole Sodium (Protonix) 40 mg DAILYAC PO Last administered on 07/08/18 08:29; Start 07/05/18 at 07:30 Potassium Chloride (Klor-Con) 20 meq DAILYWBKFT PO Last administered on 07/08/18 08:29; Start 07/05/18 at 08:00 Prednisone (Prednisone) 60 mg DAILY PO Last administered on 07/08/18 08:28; Start 07/05/18 at 09:00; Stop 07/08/18 at 16:15; Status DC Temazepam (Restoril) 7.5 mg PRN QHS PRN PO INSOMNIA Last administered on 07/07/18 20:52; Start 07/04/18 at 17:15 Lidocaine (Lidoderm) 1 patch DAILY TD Last administered on 07/08/18 08:27; Start 07/05/18 at 09:00 Rivaroxaban (Xarelto) 15 mg BIDWMEALS PO Last administered on 07/08/18 08:29; Start 07/04/18 at 21:00; Stop 07/08/18 at 16:58; Status DC Sodium Chloride 1,000 ml @ 1,000 mls/hr 1X ONCE IV Last administered on 07/04/18 18:35; Start 07/04/18 at 17:15; Stop 07/04/18 at 18:14; Status DC Sodium Chloride 1,000 ml @ 1,000 mls/hr 1X ONCE IV Last administered on 07/04/18 20:05; Start 07/04/18 at 17:15; Stop 07/04/18 at 18:14; Status DC Ceftriaxone Sodium (Rocephin) 1 gm 1X ONCE IVP Last administered on 5/23/19at 20:21; Start 07/04/18 at 17:15; Stop 07/04/18 at 17:23; Status DC Ondansetron HCl (Zofran) 4 mg PRN Q8HRS PRN IV NAUSEA/VOMITING; Start 07/04/18 at 18:30; Stop 07/05/18 at 18:29; Status DC Morphine Sulfate (Morphine Sulfate) 2 mg PRN Q2HR PRN IV PAIN; Start 07/04/18 at 18:30; Stop 07/05/18 at 18:29; Status DC Acetaminophen (Tylenol) 650 mg PRN Q4HRS PRN PO FEVER; Start 07/04/18 at 18:30; Stop 07/05/18 at 18:29; Status DC Albuterol/ Ipratropium (Duoneb) 3 ml RTQID NEB ; Start 07/04/18 at 20:00; Stop 07/05/18 at 19:59; Status UNV Info (Anti-Coagulation Monitoring By Pharmacy) 1 each PRN DAILY PRN MC SEE COMMENTS Last administered on 07/05/18at 09:41; Start 07/04/18 at 20:45 Doxycycline Hyclate (Vibra-Tab) 100 mg BID PO Last administered on 07/08/18at 20:49; Start 07/05/18 at 21:00 Docusate Sodium (Colace) 100 mg BID PO Last administered on 07/08/18at 20:48; Start 07/06/18 at 12:00 Fluticasone Propionate (Flonase) 2 spray DAILY NS ; Start 07/07/18 at 09:00; Status UNV Lactobacillus Rhamnosus (Culturelle) 1 cap BID PO Last administered on 07/08/18at 08:29; Start 07/07/18 at 21:00; Stop 07/08/18 at 12:57; Status DC Ceftriaxone Sodium (Rocephin) 1 gm Q24H IVP Last administered on 07/08/18at 14:25; Start 07/07/18 at 14:00 Dextrose (Dextrose 50%-Water Syringe) 12.5 gm PRN Q15MIN PRN IV SEE COMMENTS; Start 07/07/18 at 17:30; Status UNV Insulin Human Lispro (HumaLOG) 0-7 UNITS QIDACHS SQ ; Start 07/07/18 at 17:30; Stop 07/07/18 at 17:53; Status DC Dextrose (Dextrose 50%-Water Syringe) 12.5 gm PRN Q15MIN PRN IV SEE COMMENTS; Start 07/07/18 at 17:30 Insulin Human Lispro (HumaLOG) 0-5 UNITS TIDWMEALS SQ Last administered on 07/08/18at 12:15; Start 07/07/18 at 18:00; Stop 07/08/18 at 16:55; Status DC Dextrose (Dextrose 50%-Water Syringe) 12.5 gm PRN Q15MIN PRN IV SEE COMMENTS; Start 07/07/18 at 18:00; Status UNV Prednisone (Prednisone) 20 mg DAILY PO ; Start 07/09/18 at 09:00 Insulin Human Lispro (HumaLOG) 0-7 UNITS QIDACHS SQ Last administered on 07/08/18at 20:58; Start 07/08/18 at 21:00 Dextrose (Dextrose 50%-Water Syringe) 12.5 gm PRN Q15MIN PRN IV SEE COMMENTS; Start 07/08/18 at 17:00; Status UNV Info (Hold Preop Anti-Coag Meds) 1 ea CONT PRN PRN MC SEE COMMENTS; Start 07/08/18 at 17:00 Insulin Human Lispro (HumaLOG) 8 units 1X ONCE SQ Last administered on 07/08/18 at 17:31; Start 07/08/18 at 17:00; Stop 07/08/18 at 17:02; Status DC Active Scripts Active Augmentin 875-125 Tablet (Amoxicillin/Potassium Clav) 1 Each Tablet 1 Tab PO BID Tramadol Hcl 50 Mg Tablet 50 Mg PO Q6HRS PRN Prednisone (Prednisone) 10 Mg Tablet 10 Mg PO UD Take 3 tablets by mouth twice a day for 3 days, then take 2 tablets by mouth twice a day for 3 days, then take 1 tablet by mouth twice a day for 3 days, then take 1 tablet by mouth daily x 3 days, then stop. Ativan (Lorazepam) 1 Mg Tablet 1 Mg PO BID Guaifenesin 100 Mg/5 Ml Liquid 200 Mg PO PRN Q4HRS PRN 30 Days Tylenol (Acetaminophen) 325 Mg Tablet 650 Mg PO PRN Q4HRS PRN 10 Days Ventolin Hfa Inhaler (Albuterol Sulfate) 18 Gm Hfa.aer.ad 2 Puff INH Q4HRS Reglan (Metoclopramide Hcl) 10 Mg Tablet 0.5 Tab PO QID 30 Days Albuterol Sulfate Neb Soln (Albuterol Sulfate) 2.5 Mg/3 Ml Vial.neb 1 Vial NEB PRN Q4HRS Reported Furosemide 40 Mg Tablet 1 Tab PO DAILY Vitamin D3 (Cholecalciferol (Vitamin D3)) 5,000 Unit Tablet 5,000 Unit PO DAILY Potassium Chloride 20 Meq Tablet.er 20 Meq PO DAILY Protonix (Pantoprazole Sodium) 20 Mg Tablet.dr 1 Tab PO DAILY Flonase Allergy Relief (Fluticasone Propionate) 9.9 Ml [employer] Mdl.susp 2 Sprays NS DA DELORIS Atorvastatin Calcium 10 Mg Tablet 10 Mg PO HS Symbicort 160-4.5 Mcg Inhaler (Budesonide/Formoterol Fumarate) 10.2 Gm Hfa.aer .ad 2 Puff IH BID Vitals/I & O Vital Sign - Last 24 Hours 07/08/18 07/08/18 07/08/18 07/08/18 11:05 11:09 12:06 15:03 Temp 98.3 99.0 98.3 99.0 Pulse 116 114 Resp 18 18 B/P (MAP) 131/87 (102) 103/70 (81) Pulse Ox 97 97 97 O2 Delivery Nasal Cannula Nasal Cannula Nasal Cannula Nasal Cannula O2 Flow Rate 3.0 3.0 3.0 3.0 07/08/18 07/08/18 07/08/18 07/08/18 16:02 16:39 17:39 19:52 Pulse Ox 98 97 O2 Delivery Nasal Cannula Nasal Cannula Nasal Cannula Nasal Cannula O2 Flow Rate 3.0 3.0 3.0 3.0 07/08/18 07/08/18 07/08/18 07/09/18 19:56 20:00 22:27 03:15 Temp 99.0 98.9 98.0 99.0 98.9 98.0 Pulse 114 108 95 Resp 19 19 18 B/P (MAP) 127/82 (97) 152/78 (102) 127/88 (101) Pulse Ox 100 100 99 O2 Delivery Nasal Cannula Nasal Cannula Nasal Cannula Nasal Cannula O2 Flow Rate 3.0 3.0 3.0 3.0 07/09/18 07/09/18 06:10 07:00 Temp 98.0 98.0 Pulse 89 Resp 14 B/P (MAP) 112/84 (93) Pulse Ox 98 O2 Delivery Nasal Cannula Nasal Cannula O2 Flow Rate 3.0 3.0 Intake and Output 07/08/18 07/08/18 07/09/18 15:00 23:00 07:00 Intake Total 910 ml 240 ml 1000 ml Output Total 950 ml 1250 ml 300 ml Balance -40 ml -1010 ml 700 ml KIRSTIE TREVINO MD July 09, 2018 08:15
[2018-07-09] MEDS: FLUTICASONE 50MCG/NASAL SPRAY 16GM BOTTLE. NS SCH (09:17)
[2018-07-09] MEDS: DOCUSATE SODIUM 100 MG CAPSULE. PO SCH ×2 (09:18→21:00)
[2018-07-09] MEDS: PANTOPRAZOLE 40 MG TABLET.DR. PO SCH (09:18)
[2018-07-09] MEDS: LORazepam 1 MG TABLET PO SCH ×2 (09:18→21:14)
[2018-07-09] MEDS: CHOLECALCIFEROL (VITAMIN D3) 5,000 UNIT CAPSULE PO SCH (09:18)
[2018-07-09 09:19] LABS: PROTHROMBIN TIME PATIENT 13.4 SEC (11.7-14.0)
[2018-07-09] MEDS: METOCLOPRAMIDE 10 MG TABLET. PO SCH ×4 (09:19→21:15)
[2018-07-09] MEDS: predniSONE 20 MG TABLET PO SCH (09:19)
[2018-07-09] MEDS: traMADol 50 MG TABLET PO PRN ×2 (09:19→17:54)
[2018-07-09] MEDS: DOXYCYCLINE HYCLATE 100 MG TABLET PO SCH ×2 (09:19→21:14)
[2018-07-09] MEDS: FUROSEMIDE 40 MG TABLET. PO SCH (09:19)
[2018-07-09] MEDS: POTASSIUM CHLORIDE 20 MEQ TABLET.ER. PO SCH (09:22)
[2018-07-09] MEDS: LIDOCAINE (700MG/PATCH) PATCH. TD SCH (09:22)
--- NOTE | 2018-07-09 09:32 | PDOC ---
PROGRESS NOTES Subjective Subjective He admits continued back pain. Objective Objective Vital Signs Date Time Temp Pulse Resp B/P (MAP) Pulse Ox O2 Delivery O2 Flow Rate FiO2 07/09/18 09:19 Nasal Cannula 3.0 07/09/18 07:00 98.0 89 14 112/84 (93) 98 98.0 Intake and Output 07/09/18 07:00 Intake Total 2150 ml Output Total 2500 ml Balance -350 ml Intake Oral 1150 ml Other 1000 ml Output Urine Total 2500 ml Physical Exam Physical Exam He is supine in bed with oxygen by nasal canula and continues with tenderness to palpation over mid thoracic spine area but remains independent with his mobility. Assessment Assessment Problems Medical Problems: (1) COPD with exacerbation Status: Acute (2) Hyperglycemia Status: Acute (3) Pulmonary embolism Status: Acute (4) Shortness of breath Status: Acute Plan Plan of Care IR is waiting for INR to be low to proceed with T9 kyphoplasty. Comment Review of Relevant I have reviewed the following items franki (where applicable) has been applied. Labs Laboratory Tests Test 07/07/18 15:44 07/07/18 17:16 07/07/18 22:35 07/08/18 03:25 Glucose (Fingerstick) 328 mg/dL (70-99) 218 mg/dL (70-99) 197 mg/dL (70-99) White Blood Count 6.9 x10^3/uL (4.0-11.0) Red Blood Count 3.38 x10^6/uL (4.30-5.70) Hemoglobin 9.8 g/dL (13.0-17.5) Hematocrit 29.6 % (39.0-53.0) Mean Corpuscular Volume 87 fL (79-100) Mean Corpuscular Hemoglobin 29 pg (25-35) Mean Corpuscular Hemoglobin Concent 33 g/dL (31-37) Red Cell Distribution Width 15.6 % (11.5-14.5) Platelet Count 149 x10^3/uL (140-400) Neutrophils (%) (Auto) 89 % (31-73) Lymphocytes (%) (Auto) 4 % (24-48) Monocytes (%) (Auto) 6 % (0-9) Eosinophils (%) (Auto) 0 % (0-3) Basophils (%) (Auto) 0 % (0-3) Neutrophils # (Auto) 6.1 x10^3uL (1.8-7.7) Lymphocytes # (Auto) 0.3 x10^3/uL (1.0-4.8) Monocytes # (Auto) 0.4 x10^3/uL (0.0-1.1) Eosinophils # (Auto) 0.0 x10^3/uL (0.0-0.7) Basophils # (Auto) 0.0 x10^3/uL (0.0-0.2) Sodium Level 140 mmol/L (136-145) Potassium Level 3.6 mmol/L (3.5-5.1) Chloride Level 100 mmol/L (98-107) Carbon Dioxide Level 36 mmol/L (21-32) Anion Gap 4 (6-14) Blood Urea Nitrogen 14 mg/dL (8-26) Creatinine 0.8 mg/dL (0.7-1.3) Estimated GFR (Cockcroft-Gault) 119.7 Glucose Level 145 mg/dL (70-99) Calcium Level 9.0 mg/dL (8.5-10.1) Test 07/08/18 07:30 07/08/18 11:28 07/08/18 16:46 07/08/18 20:24 Glucose (Fingerstick) 128 mg/dL (70-99) 346 mg/dL (70-99) 373 mg/dL (70-99) 334 mg/dL (70-99) Test 07/09/18 04:00 07/09/18 07:12 White Blood Count 6.9 x10^3/uL (4.0-11.0) Red Blood Count 3.38 x10^6/uL (4.30-5.70) Hemoglobin 9.7 g/dL (13.0-17.5) Hematocrit 29.3 % (39.0-53.0) Mean Corpuscular Volume 87 fL (79-100) Mean Corpuscular Hemoglobin 29 pg (25-35) Mean Corpuscular Hemoglobin Concent 33 g/dL (31-37) Red Cell Distribution Width 15.2 % (11.5-14.5) Platelet Count 141 x10^3/uL (140-400) Neutrophils (%) (Auto) 89 % (31-73) Lymphocytes (%) (Auto) 4 % (24-48) Monocytes (%) (Auto) 6 % (0-9) Eosinophils (%) (Auto) 0 % (0-3) Basophils (%) (Auto) 0 % (0-3) Neutrophils # (Auto) 6.2 x10^3uL (1.8-7.7) Lymphocytes # (Auto) 0.3 x10^3/uL (1.0-4.8) Monocytes # (Auto) 0.4 x10^3/uL (0.0-1.1) Eosinophils # (Auto) 0.0 x10^3/uL (0.0-0.7) Basophils # (Auto) 0.0 x10^3/uL (0.0-0.2) Prothrombin Time 13.4 SEC (11.7-14.0) Prothromb Time International Ratio 1.1 (0.8-1.1) Activated Partial Thromboplast Time 24 SEC (24-38) Sodium Level 141 mmol/L (136-145) Potassium Level 3.6 mmol/L (3.5-5.1) Chloride Level 100 mmol/L (98-107) Carbon Dioxide Level 36 mmol/L (21-32) Anion Gap 5 (6-14) Blood Urea Nitrogen 14 mg/dL (8-26) Creatinine 0.8 mg/dL (0.7-1.3) Estimated GFR (Cockcroft-Gault) 119.7 Glucose Level 137 mg/dL (70-99) Calcium Level 8.9 mg/dL (8.5-10.1) Glucose (Fingerstick) 124 mg/dL (70-99) Laboratory Tests Test 07/08/18 11:28 07/08/18 16:46 07/08/18 20:24 07/09/18 04:00 Glucose (Fingerstick) 346 mg/dL (70-99) 373 mg/dL (70-99) 334 mg/dL (70-99) White Blood Count 6.9 x10^3/uL (4.0-11.0) Red Blood Count 3.38 x10^6/uL (4.30-5.70) Hemoglobin 9.7 g/dL (13.0-17.5) Hematocrit 29.3 % (39.0-53.0) Mean Corpuscular Volume 87 fL (79-100) Mean Corpuscular Hemoglobin 29 pg (25-35) Mean Corpuscular Hemoglobin Concent 33 g/dL (31-37) Red Cell Distribution Width 15.2 % (11.5-14.5) Platelet Count 141 x10^3/uL (140-400) Neutrophils (%) (Auto) 89 % (31-73) Lymphocytes (%) (Auto) 4 % (24-48) Monocytes (%) (Auto) 6 % (0-9) Eosinophils (%) (Auto) 0 % (0-3) Basophils (%) (Auto) 0 % (0-3) Neutrophils # (Auto) 6.2 x10^3uL (1.8-7.7) Lymphocytes # (Auto) 0.3 x10^3/uL (1.0-4.8) Monocytes # (Auto) 0.4 x10^3/uL (0.0-1.1) Eosinophils # (Auto) 0.0 x10^3/uL (0.0-0.7) Basophils # (Auto) 0.0 x10^3/uL (0.0-0.2) Prothrombin Time 13.4 SEC (11.7-14.0) Prothromb Time International Ratio 1.1 (0.8-1.1) Activated Partial Thromboplast Time 24 SEC (24-38) Sodium Level 141 mmol/L (136-145) Potassium Level 3.6 mmol/L (3.5-5.1) Chloride Level 100 mmol/L (98-107) Carbon Dioxide Level 36 mmol/L (21-32) Anion Gap 5 (6-14) Blood Urea Nitrogen 14 mg/dL (8-26) Creatinine 0.8 mg/dL (0.7-1.3) Estimated GFR (Cockcroft-Gault) 119.7 Glucose Level 137 mg/dL (70-99) Calcium Level 8.9 mg/dL (8.5-10.1) Test 07/09/18 07:12 Glucose (Fingerstick) 124 mg/dL (70-99) Microbiology 07/05/18 Blood Culture - Final, Complete Medications Current Medications Albuterol/ Ipratropium (Duoneb) 3 ml 1X ONCE NEB Last administered on 07/04/18at 16:30; Start 07/04/18 at 16:30; Stop 07/04/18 at 16:31; Status DC Methylprednisolone Sodium Succinate (SOLU-Medrol 125MG VIAL) 125 mg 1X ONCE IV Last administered on 07/04/18 16:55; Start 07/04/18 at 16:30; Stop 07/04/18 at 16:31; Status DC Acetaminophen/ Hydrocodone Bitart (Lortab 5/325) 2 tab 1X ONCE PO Last administered on 07/04/18at 16:54; Start 07/04/18 at 16:30; Stop 07/04/18 at 16:31; Status DC Albuterol/ Ipratropium (Duoneb) 3 ml RTQID NEB Last administered on 07/09/18 06:10; Start 07/04/18 at 20:00 Guaifenesin (Robitussin Dm) 10 ml PRN Q6HRS PRN PO COUGH; Start 07/04/18 at 17:00 Acetaminophen (Tylenol) 650 mg PRN Q4HRS PRN PO TEMP OVER 100.4F OR MILD PAIN; Start 07/04/18 at 17:00; Status UNV Atorvastatin Calcium (Lipitor) 10 mg HS PO Last administered on 07/08/18at 20:49; Start 07/04/18 at 21:00 Furosemide (Lasix) 40 mg DAILY PO Last administered on 07/09/18 09:19; Start 07/05/18 at 09:00 Lorazepam (Ativan) 1 mg BID PO Last administered on 07/09/18 09:18; Start 07/04/18 at 21:00 Metoclopramide HCl (Reglan) 5 mg QIDACHS PO Last administered on 07/09/18 09:19; Start 07/04/18 at 18:00 Tramadol HCl (Ultram) 50 mg PRN Q6HRS PRN PO PAIN Last administered on 07/09/18 09:19; Start 07/04/18 at 17:00 Vitamin D (Vitamin D3) 5,000 unit DAILY PO Last administered on 07/09/18 09:18; Start 07/05/18 at 09:00 Fluticasone Propionate (Flonase) 2 spray DAILY NS Last administered on 07/09/18 09:17; Start 07/05/18 at 09:00 Pantoprazole Sodium (Protonix) 40 mg DAILYAC PO Last administered on 07/09/18 09:18; Start 07/05/18 at 07:30 Potassium Chloride (Klor-Con) 20 meq DAILYWBKFT PO Last administered on 09:22; Start 07/05/18 at 08:00 Prednisone (Prednisone) 60 mg DAILY PO Last administered on 07/08/18 08:28; Start 07/05/18 at 09:00; Stop 07/08/18 at 16:15; Status DC Temazepam (Restoril) 7.5 mg PRN QHS PRN PO INSOMNIA Last administered on 07/07/18 20:52; Start 07/04/18 at 17:15 Lidocaine (Lidoderm) 1 patch DAILY TD Last administered on 07/09/18 09:22; Start 07/05/18 at 09:00 Rivaroxaban (Xarelto) 15 mg BIDWMEALS PO Last administered on 07/08/18 08:29; Start 07/04/18 at 21:00; Stop 07/08/18 at 16:58; Status DC Sodium Chloride 1,000 ml @ 1,000 mls/hr 1X ONCE IV Last administered on 07/04/18at 18:35; Start 07/04/18 at 17:15; Stop 07/04/18 at 18:14; Status DC Sodium Chloride 1,000 ml @ 1,000 mls/hr 1X ONCE IV Last administered on 07/04/18at 20:05; Start 07/04/18 at 17:15; Stop 07/04/18 at 18:14; Status DC Ceftriaxone Sodium (Rocephin) 1 gm 1X ONCE IVP Last administered on 07/04/18at 20:21; Start 07/04/18 at 17:15; Stop 07/04/18 at 17:23; Status DC Ondansetron HCl (Zofran) 4 mg PRN Q8HRS PRN IV NAUSEA/VOMITING; Start 07/04/18 at 18:30; Stop 07/05/18 at 18:29; Status DC Morphine Sulfate (Morphine Sulfate) 2 mg PRN Q2HR PRN IV PAIN; Start 07/04/18 at 18:30; Stop 07/05/18 at 18:29; Status DC Acetaminophen (Tylenol) 650 mg PRN Q4HRS PRN PO FEVER; Start 07/04/18 at 18:30; Stop 07/05/18 at 18:29; Status DC Albuterol/ Ipratropium (Duoneb) 3 ml RTQID NEB ; Start 07/04/18 at 20:00; Stop 07/05/18 at 19:59; Status UNV Info (Anti-Coagulation Monitoring By Pharmacy) 1 each PRN DAILY PRN MC SEE COMM ENTS Last administered on 07/05/18at 09:41; Start 07/04/18 at 20:45 Doxycycline Hyclate (Vibra-Tab) 100 mg BID PO Last administered on 07/09/18at 09:19; Start 07/05/18 at 21:00 Docusate Sodium (Colace) 100 mg BID PO Last administered on 07/09/18at 09:18; S tart 07/06/18 at 12:00 Fluticasone Propionate (Flonase) 2 spray DAILY NS ; Start 07/07/18 at 09:00; Status UNV Lactobacillus Rhamnosus (Culturelle) 1 cap BID PO Last administered on 07/08/18at 08:29; Start 07/07/18 at 21:00; Stop 07/08/18 at 12:57; Status DC Ceftriaxone Sodium (Rocephin) 1 gm Q24H IVP Last administered on 07/08/18at 14:25; Start 07/07/18 at 14:00 Dextrose (Dextrose 50%-Water Syringe) 12.5 gm PRN Q15MIN PRN IV SEE COMMENTS; Start 07/07/18 at 17:30; Status UNV Insulin Human Lispro (HumaLOG) 0-7 UNITS QIDACHS SQ ; Start 07/07/18 at 17:30; Stop 07/07/18 at 17:53; Status DC Dextrose (Dextrose 50%-Water Syringe) 12.5 gm PRN Q15MIN PRN IV SEE COMMENTS; Start 07/07/18 at 17:30 Insulin Human Lispro (HumaLOG) 0-5 UNITS TIDWMEALS SQ Last administered on 07/08/18at 12:15; Start 07/07/18 at 18:00; Stop 07/08/18 at 16:55; Status DC Dextrose (Dextrose 50%-Water Syringe) 12.5 gm PRN Q15MIN PRN IV SEE COMMENTS; Start 07/07/18 at 18:00; Status UNV Prednisone (Prednisone) 20 mg DAILY PO Last administered on 07/09/18at 09:19; Start 07/09/18 at 09:00 Insulin Human Lispro (HumaLOG) 0-7 UNITS QIDACHS SQ Last administered on 07/08/18at 20:58; Start 07/08/18 at 21:00 Dextrose (Dextrose 50%-Water Syringe) 12.5 gm PRN Q15MIN PRN IV SEE COMMENTS; Start 07/08/18 at 17:00; Status UNV Info (Hold Preop Anti-Coag Meds) 1 ea CONT PRN PRN MC SEE COMMENTS; Start 07/08/18 at 17:00 Insulin Human Lispro (HumaLOG) 8 units 1X ONCE SQ Last administered on 07/08/18at 17:31; Start 07/08/18 at 17:00; Stop 07/08/18 at 17:02; Status DC Lactobacillus Rhamnosus (Culturelle) 1 cap BID PO ; Start 07/09/18 at 21:00; Status Cancel Active Scripts Active Augmentin 683-125 Tablet (Amoxicillin/Potassium Clav) 1 Each Tablet 1 Tab PO BID Tramadol Hcl 50 Mg Tablet 50 Mg PO Q6HRS PRN Prednisone (Prednisone) 10 Mg Tablet 10 Mg PO UD Take 3 tablets by mouth twice a day for 3 days, then take 2 tablets by mouth twice a day for 3 days, then take 1 tablet by mouth twice a day for 3 days, then take 1 tablet by mouth daily x 3 days, then stop. Ativan (Lorazepam) 1 Mg Tablet 1 Mg PO BID Guaifenesin 100 Mg/5 Ml Liquid 200 Mg PO PRN Q4HRS PRN 30 Days Tylenol (Acetaminophen) 325 Mg Tablet 650 Mg PO PRN Q4HRS PRN 10 Days Ventolin Hfa Inhaler (Albuterol Sulfate) 18 Gm Hfa.aer.ad 2 Puff INH Q4HRS Reglan (Metoclopramide Hcl) 10 Mg Tablet 0.5 Tab PO QID 30 Days Albuterol Sulfate Neb Soln (Albuterol Sulfate) 2.5 Mg/3 Ml Vial.neb 1 Vial NEB PRN Q4HRS Reported Furosemide 40 Mg Tablet 1 Tab PO DAILY Vitamin D3 (Cholecalciferol (Vitamin D3)) 5,000 Unit Tablet 5,000 Unit PO DAILY Potassium Chloride 20 Meq Tablet.er 20 Meq PO DAILY Protonix (Pantoprazole Sodium) 20 Mg Tablet.dr 1 Tab PO DAILY Flonase Allergy Relief (Fluticasone Propionate) 9.9 Ml [place].susp 2 Sprays NS DAILY Atorvastatin Calcium 10 Mg Tablet 10 Mg PO HS Symbicort 160-4.5 Mcg Inhaler (Budesonide/Formoterol Fumarate) 10.2 Gm Hfa.aer.ad 2 Puff IH BID Vitals/I & O Vital Sign - Last 24 Hours 07/08/18 07/08/18 07/08/18 07/08/18 11:05 11:09 12:06 15:03 Temp 98.3 99.0 98.3 99.0 Pulse 116 114 Resp 18 18 B/P (MAP) 131/87 (102) 103/70 (81) Pulse Ox 97 97 97 O2 Delivery Nasal Cannula Nasal Cannula Nasal Cannula Nasal Cannula O2 Flow Rate 3.0 3.0 3.0 3.0 07/08/18 07/08/18 07/08/18 07/08/18 16:02 16:39 17:39 19:52 Pulse Ox 98 97 O2 Delivery Nasal Cannula Nasal Cannula Nasal Cannula Nasal Cannula O2 Flow Rate 3.0 3.0 3.0 3.0 07/08/18 07/08/18 07/08/18 07/09/18 19:56 20:00 22:27 03:15 Temp 99.0 98.9 98.0 99.0 98.9 98.0 Pulse 114 108 95 Resp 19 19 18 B/P (MAP) 127/82 (97) 152/78 (102) 127/88 (101) Pulse Ox 100 100 99 O2 Delivery Nasal Cannula Nasal Cannula Nasal Cannula Nasal Cannula O2 Flow Rate 3.0 3.0 3.0 3.0 07/09/18 07/09/18 07/09/18 07/09/18 06:10 07:00 08:00 09:19 Temp 98.0 98.0 Pulse 89 Resp 14 B/P (MAP) 112/84 (93) Pulse Ox 98 O2 Delivery Nasal Cannula Nasal Cannula Nasal Cannula Nasal Cannula O2 Flow Rate 3.0 3.0 3.0 3.0 Intake and Output 07/08/18 07/08/18 07/09/18 15:00 23:00 07:00 Intake Total 910 ml 240 ml 1000 ml Output Total 950 ml 1250 ml 300 ml Balance -40 ml -1010 ml 700 ml SHELLY GOOD MD July 09, 2018 09:32
[2018-07-09 11:00] VITALS: BP 114/75
--- NOTE | 2018-07-09 12:01 | NUR ---
SS following up with discharge planning. Pt declined at [facility]. SS met with pt and discussed other options. Pt chose [facility], ; fax [phone]. SS phoned and faxed referral to [facility]. SS will await acceptance decision and will proceed accordingly.
--- NOTE | 2018-07-09 12:45 | PDOC ---
PULMONARY PROGRESS NOTES Subjective still soa at times back pain not helping Vitals Vital Signs Date Time Temp Pulse Resp B/P (MAP) Pulse Ox O2 Delivery O2 Flow Rate FiO2 07/09/18 11:00 98.2 118 16 114/75 (88) 98 Nasal Cannula 3.0 98.2 ROS: No Nausea General: Alert, No acute distress Lungs: Other (poor air flow) Cardiovascular: S1, S2 Abdomen: Soft, Non-tender Neuro Exam: Alert Extremities: No Edema, Other Skin: Warm Labs Laboratory Tests Test 07/07/18 15:44 07/07/18 17:16 07/07/18 22:35 07/08/18 03:25 Glucose (Fingerstick) 328 mg/dL (70-99) 218 mg/dL (70-99) 197 mg/dL (70-99) White Blood Count 6.9 x10^3/uL (4.0-11.0) Red Blood Count 3.38 x10^6/uL (4.30-5.70) Hemoglobin 9.8 g/dL (13.0-17.5) Hematocrit 29.6 % (39.0-53.0) Mean Corpuscular Volume 87 fL (79-100) Mean Corpuscular Hemoglobin 29 pg (25-35) Mean Corpuscular Hemoglobin Concent 33 g/dL (31-37) Red Cell Distribution Width 15.6 % (11.5-14.5) Platelet Count 149 x10^3/uL (140-400) Neutrophils (%) (Auto) 89 % (31-73) Lymphocytes (%) (Auto) 4 % (24-48) Monocytes (%) (Auto) 6 % (0-9) Eosinophils (%) (Auto) 0 % (0-3) Basophils (%) (Auto) 0 % (0-3) Neutrophils # (Auto) 6.1 x10^3uL (1.8-7.7) Lymphocytes # (Auto) 0.3 x10^3/uL (1.0-4.8) Monocytes # (Auto) 0.4 x10^3/uL (0.0-1.1) Eosinophils # (Auto) 0.0 x10^3/uL (0.0-0.7) Basophils # (Auto) 0.0 x10^3/uL (0.0-0.2) Sodium Level 140 mmol/L (136-145) Potassium Level 3.6 mmol/L (3.5-5.1) Chloride Level 100 mmol/L (98-107) Carbon Dioxide Level 36 mmol/L (21-32) Anion Gap 4 (6-14) Blood Urea Nitrogen 14 mg/dL (8-26) Creatinine 0.8 mg/dL (0.7-1.3) Estimated GFR (Cockcroft-Gault) 119.7 Glucose Level 145 mg/dL (70-99) Calcium Level 9.0 mg/dL (8.5-10.1) Test 07/08/18 07:30 07/08/18 11:28 07/08/18 16:46 07/08/18 20:24 Glucose (Fingerstick) 128 mg/dL (70-99) 346 mg/dL (70-99) 373 mg/dL (70-99) 334 mg/dL (70-99) Test 07/09/18 04:00 07/09/18 07:12 07/09/18 11:43 White Blood Count 6.9 x10^3/uL (4.0-11.0) Red Blood Count 3.38 x10^6/uL (4.30-5.70) Hemoglobin 9.7 g/dL (13.0-17.5) Hematocrit 29.3 % (39.0-53.0) Mean Corpuscular Volume 87 fL (79-100) Mean Corpuscular Hemoglobin 29 pg (25-35) Mean Corpuscular Hemoglobin Concent 33 g/dL (31-37) Red Cell Distribution Width 15.2 % (11.5-14.5) Platelet Count 141 x10^3/uL (140-400) Neutrophils (%) (Auto) 89 % (31-73) Lymphocytes (%) (Auto) 4 % (24-48) Monocytes (%) (Auto) 6 % (0-9) Eosinophils (%) (Auto) 0 % (0-3) Basophils (%) (Auto) 0 % (0-3) Neutrophils # (Auto) 6.2 x10^3uL (1.8-7.7) Lymphocytes # (Auto) 0.3 x10^3/uL (1.0-4.8) Monocytes # (Auto) 0.4 x10^3/uL (0.0-1.1) Eosinophils # (Auto) 0.0 x10^3/uL (0.0-0.7) Basophils # (Auto) 0.0 x10^3/uL (0.0-0.2) Prothrombin Time 13.4 SEC (11.7-14.0) Prothromb Time International Ratio 1.1 (0.8-1.1) Activated Partial Thromboplast Time 24 SEC (24-38) Sodium Level 141 mmol/L (136-145) Potassium Level 3.6 mmol/L (3.5-5.1) Chloride Level 100 mmol/L (98-107) Carbon Dioxide Level 36 mmol/L (21-32) Anion Gap 5 (6-14) Blood Urea Nitrogen 14 mg/dL (8-26) Creatinine 0.8 mg/dL (0.7-1.3) Estimated GFR (Cockcroft-Gault) 119.7 Glucose Level 137 mg/dL (70-99) Calcium Level 8.9 mg/dL (8.5-10.1) Glucose (Fingerstick) 124 mg/dL (70-99) 269 mg/dL (70-99) Laboratory Tests Test 07/08/18 16:46 07/08/18 20:24 07/09/18 04:00 07/09/18 07:12 Glucose (Fingerstick) 373 mg/dL (70-99) 334 mg/dL (70-99) 124 mg/dL (70-99) White Blood Count 6.9 x10^3/uL (4.0-11.0) Red Blood Count 3.38 x10^6/uL (4.30-5.70) Hemoglobin 9.7 g/dL (13.0-17.5) Hematocrit 29.3 % (39.0-53.0) Mean Corpuscular Volume 87 fL (79-100) Mean Corpuscular Hemoglobin 29 pg (25-35) Mean Corpuscular Hemoglobin Concent 33 g/dL (31-37) Red Cell Distribution Width 15.2 % (11.5-14.5) Platelet Count 141 x10^3/uL (140-400) Neutrophils (%) (Auto) 89 % (31-73) Lymphocytes (%) (Auto) 4 % (24-48) Monocytes (%) (Auto) 6 % (0-9) Eosinophils (%) (Auto) 0 % (0-3) Basophils (%) (Auto) 0 % (0-3) Neutrophils # (Auto) 6.2 x10^3uL (1.8-7.7) Lymphocytes # (Auto) 0.3 x10^3/uL (1.0-4.8) Monocytes # (Auto) 0.4 x10^3/uL (0.0-1.1) Eosinophils # (Auto) 0.0 x10^3/uL (0.0-0.7) Basophils # (Auto) 0.0 x10^3/uL (0.0-0.2) Prothrombin Time 13.4 SEC (11.7-14.0) Prothromb Time International Ratio 1.1 (0.8-1.1) Activated Partial Thromboplast Time 24 SEC (24-38) Sodium Level 141 mmol/L (136-145) Potassium Level 3.6 mmol/L (3.5-5.1) Chloride Level 100 mmol/L (98-107) Carbon Dioxide Level 36 mmol/L (21-32) Anion Gap 5 (6-14) Blood Urea Nitrogen 14 mg/dL (8-26) Creatinine 0.8 mg/dL (0.7-1.3) Estimated GFR (Cockcroft-Gault) 119.7 Glucose Level 137 mg/dL (70-99) Calcium Level 8.9 mg/dL (8.5-10.1) Test 07/09/18 11:43 Glucose (Fingerstick) 269 mg/dL (70-99) Medications Active Scripts Medications Dose Route/Sig Max Daily Dose Days Date Category Dose Instructions Augmentin 875-125 Tablet (Amoxicillin/Potassium Clav) 1 Each Tablet 1 Tab PO BID 06/25/18 Rx Tramadol Hcl 50 Mg Tablet 50 Mg PO Q6HRS PRN 06/25/18 Rx Prednisone (Prednisone) 10 Mg Tablet 10 Mg PO UD 06/25/18 Rx Take 3 tablets by mouth twice a day for 3 days, then take 2 tablets by mouth twice a day for 3 days, then take 1 tablet by mouth twice a day for 3 days, then take 1 tablet by mouth daily x 3 days, then stop. Furosemide 40 Mg Tablet 1 Tab PO DAILY 06/20/18 Reported Ativan (Lorazepam) 1 Mg Tablet 1 Mg PO BID 06/15/18 Rx Guaifenesin 100 Mg/5 Ml Liquid 200 Mg PO PRN Q4HRS PRN 30 05/30/18 Rx Tylenol (Acetaminophen) 325 Mg Tablet 650 Mg PO PRN Q4HRS PRN 10 05/30/18 Rx Ventolin Hfa Inhaler (Albuterol Sulfate) 18 Gm Hfa.aer.ad 2 Puff INH Q4HRS 05/10/18 Rx Vitamin D3 (Cholecalciferol (Vitamin D3)) 5,000 Unit Tablet 5,000 Unit PO DAILY 03/15/18 Reported Reglan (Metoclopramide Hcl) 10 Mg Tablet 0.5 Tab PO QID 30 02/14/18 Rx Potassium Chloride 20 Meq Tablet.er 20 Meq PO DAILY 01/13/18 Reported Protonix (Pantoprazole Sodium) 20 Mg Tablet.dr 1 Tab PO DAILY 11/18/17 Reported Flonase Allergy Relief (Fluticasone Propionate) 9.9 Ml [place].susp 2 Sprays NS DAILY 11/18/17 Reported Atorvastatin Calcium 10 Mg Tablet 10 Mg PO HS 08/21/17 Reported Albuterol Sulfate Neb Soln (Albuterol Sulfate) 2.5 Mg/3 Ml Vial.neb 1 Vial NEB PRN Q4HRS 07/10/17 Rx Symbicort 160-4.5 Mcg Inhaler (Budesonide/Formoterol Fumarate) 10.2 Gm Hfa.aer.ad 2 Puff IH BID 09/21/15 Reported Comments reviewed, 05/30/18 ct 1. Severe emphysema with a prominent bullous component on the left. 2. Chronic pleural/parenchymal scarring. 3. New small spiculated opacity in the right lower lobe which may be inflammatory or neoplastic. CT follow-up is suggested. Impression . IMPRESSION: 1. [id number] hypoxemic hypercapnic respiratory failure. 2. Acute exacerbation of chronic obstructive pulmonary disease. 3. Recent pulmonary embolism diagnosed at [facility] approximately a week ago. The patient presented on Xarelto. 4. Epistaxis and left subconjunctival hemorrhage, resulting from cough and increased pressure. resolved 5. Hypertension. 6. Depression. 7. Tobacco dependence, in remission. 8. abnl ct of chest, rll density 9. allergic rhinitis 10. compressive fracture lower back 07/07 IMPRESSION: Resolution of previously seen spiculated nodule consistent with a benign inflammatory or infectious nodule. There is a new small groundglass lung infiltrate within the posterior right lower lobe most likely representing atelectasis. Stable compression fractures of T1 and T6. Increase in compression fracture of the superior endplate of T12. New compression fracture of T9. The latter 2 findings are stable from CT study of the thoracic spine performed on July 06, 2018. Note-only 11 ribs. Plan . decrease pred possible kyphoplasty in am nebs continue same otherwise AC after nusrato VIN MEAD MD July 09, 2018 12:45
[2018-07-09] MEDS: cefTRIAXone IV Push 1 GM VIAL. IVP SCH (14:32)
[2018-07-09 15:00] VITALS: BP 128/83
[2018-07-09 20:15] VITALS: BP 126/85
[2018-07-09] MEDS ORDERED: LACTOBACILLUS RHAMNOSUS GG 1 CAPSULE. PO SCH (21:00)
[2018-07-09] MEDS: ATORVASTATIN CALCIUM 10 MG TABLET. PO SCH (21:15)
[2018-07-09] MEDS: TEMAZEPAM 7.5 MG CAPSULE PO PRN (21:15)
[2018-07-09 22:41] VITALS: BP 118/76
[2018-07-10] MEDS: ALBUTEROL SULFATE 2.5 MG/3 ML NEBU. NEB PRN (02:50)
[2018-07-10 03:18] VITALS: BP 129/70
[2018-07-10 07:00] VITALS: BP 131/83
[2018-07-10] MEDS: IPRATRPIUM/ALBUTEROL 0.5/2.5MG 3 ML NEBU. NEB SCH ×4 (07:19→20:49)
[2018-07-10] MEDS: INSULIN LISPRO 300 UNITS/3 ML INSULN.PEN. SQ SCH ×4 (07:30→22:02)
--- NOTE | 2018-07-10 08:05 | PDOC ---
PROGRESS NOTES Chief Complaint Chief Complaint Stage COPD, end stage. 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 Still short of breath and having back pain Agreeable to SNU placement Will be difficult, have to d/w IR for kyphoplasty because he needs a nticoagulation as well, has been continued on his xarelto which was held 07/08/18, transition to lovenox today, hold in the morning for kyphoplasty tomorrow as MRI was not available. Vitals Vitals Vital Signs Date Time Temp Pulse Resp B/P (MAP) Pulse Ox O2 Delivery O2 Flow Rate FiO2 07/10/18 07:22 99 Nasal Cannula 3.0 07/10/18 03:18 98.7 97 18 129/70 (89) 98.7 Physical Exam General: Alert, Oriented X3, Cooperative, No acute distress Lungs: Other (poor air flow) Abdomen: Normal bowel sounds, Soft, No tenderness, No hepatosplenomegaly, No masses Extremities: No clubbing, No cyanosis, No edema, Normal pulses, No tenderness/swelling Skin: Other (very dry skin, skin atrophy visible from chronic steroid use) Labs LABS Laboratory Tests Test 07/09/18 11:43 07/09/18 17:33 07/09/18 20:48 07/10/18 07:35 Glucose (Fingerstick) 269 mg/dL (70-99) 323 mg/dL (70-99) 185 mg/dL (70-99) 106 mg/dL (70-99) Assessment and Plan Assessmemt and Plan Problems Medical Problems: (1) COPD with exacerbation Status: Acute (2) Hyperglycemia Status: Acute (3) Pulmonary embolism Status: Acute (4) Shortness of breath Status: Acute Comment Review of Relevant I have reviewed the following items franki (where applicable) has been applied. Labs Laboratory Tests Test 07/08/18 11:28 07/08/18 16:46 07/08/18 20:24 07/09/18 04:00 Glucose (Fingerstick) 346 mg/dL (70-99) 373 mg/dL (70-99) 334 mg/dL (70-99) White Blood Count 6.9 x10^3/uL (4.0-11.0) Red Blood Count 3.38 x10^6/uL (4.30-5.70) Hemoglobin 9.7 g/dL (13.0-17.5) Hematocrit 29.3 % (39.0-53.0) Mean Corpuscular Volume 87 fL (79-100) Mean Corpuscular Hemoglobin 29 pg (25-35) Mean Corpuscular Hemoglobin Concent 33 g/dL (31-37) Red Cell Distribution Width 15.2 % (11.5-14.5) Platelet Count 141 x10^3/uL (140-400) Neutrophils (%) (Auto) 89 % (31-73) Lymphocytes (%) (Auto) 4 % (24-48) Monocytes (%) (Auto) 6 % (0-9) Eosinophils (%) (Auto) 0 % (0-3) Basophils (%) (Auto) 0 % (0-3) Neutrophils # (Auto) 6.2 x10^3uL (1.8-7.7) Lymphocytes # (Auto) 0.3 x10^3/uL (1.0-4.8) Monocytes # (Auto) 0.4 x10^3/uL (0.0-1.1) Eosinophils # (Auto) 0.0 x10^3/uL (0.0-0.7) Basophils # (Auto) 0.0 x10^3/uL (0.0-0.2) Prothrombin Time 13.4 SEC (11.7-14.0) Prothromb Time International Ratio 1.1 (0.8-1.1) Activated Partial Thromboplast Time 24 SEC (24-38) Sodium Level 141 mmol/L (136-145) Potassium Level 3.6 mmol/L (3.5-5.1) Chloride Level 100 mmol/L (98-107) Carbon Dioxide Level 36 mmol/L (21-32) Anion Gap 5 (6-14) Blood Urea Nitrogen 14 mg/dL (8-26) Creatinine 0.8 mg/dL (0.7-1.3) Estimated GFR (Cockcroft-Gault) 119.7 Glucose Level 137 mg/dL (70-99) Calcium Level 8.9 mg/dL (8.5-10.1) Test 07/09/18 07:12 07/09/18 11:43 07/09/18 17:33 07/09/18 20:48 Glucose (Fingerstick) 124 mg/dL (70-99) 269 mg/dL (70-99) 323 mg/dL (70-99) 185 mg/dL (70-99) Test 07/10/18 07:35 Glucose (Fingerstick) 106 mg/dL (70-99) Laboratory Tests Test 07/09/18 11:43 07/09/18 17:33 07/09/18 20:48 07/10/18 07:35 Glucose (Fingerstick) 269 mg/dL (70-99) 323 mg/dL (70-99) 185 mg/dL (70-99) 106 mg/dL (70-99) Microbiology 07/05/18 Blood Culture - Final, Complete Medications Current Medications Albuterol/ Ipratropium (Duoneb) 3 ml 1X ONCE NEB Last administered on 07/04/18at 16:30; Start 07/04/18 at 16:30; Stop 07/04/18 at 16:31; Status DC Methylprednisolone Sodium Succinate (SOLU-Medrol 125MG VIAL) 125 mg 1X ONCE IV Last administered on 07/04/18at 16:55; Start 07/04/18 at 16:30; Stop 07/04/18 at 16:31; Status DC Acetaminophen/ Hydrocodone Bitart (Lortab 5/325) 2 tab 1X ONCE PO Last administered on 07/04/18at 16:54; Start 07/04/18 at 16:30; Stop 07/04/18 at 16:31; Status DC Albuterol/ Ipratropium (Duoneb) 3 ml RTQID NEB Last administered on 07/10/18at 07:19; Start 07/04/18 at 20:00 Guaifenesin (Robitussin Dm) 10 ml PRN Q6HRS PRN PO COUGH; Start 07/04/18 at 17:00 Acetaminophen (Tylenol) 650 mg PRN Q4HRS PRN PO TEMP OVER 100.4F OR MILD PAIN; Start 07/04/18 at 17:00; Status UNV Atorvastatin Calcium (Lipitor) 10 mg HS PO Last administered on 07/09/18 21:15; Start 07/04/18 at 21:00 Furosemide (Lasix) 40 mg DAILY PO Last administered on 07/09/18 09:19; Start 07/05/18 at 09:00 Lorazepam (Ativan) 1 mg BID PO Last administered on 07/09/18 21:14; Start 07/04/18 at 21:00 Metoclopramide HCl (Reglan) 5 mg QIDACHS PO Last administered on 07/09/18 21:15; Start 07/04/18 at 18:00 Tramadol HCl (Ultram) 50 mg PRN Q6HRS PRN PO PAIN Last administered on 07/09/18 17:54; Start 07/04/18 at 17:00 Vitamin D (Vitamin D3) 5,000 unit DAILY PO Last administered on 07/09/18 09:18; Start 07/05/18 at 09:00 Fluticasone Propionate (Flonase) 2 spray DAILY NS Last administered on 07/09/18 09:17; Start 07/05/18 at 09:00 Pantoprazole Sodium (Protonix) 40 mg DAILYAC PO Last administered on 07/09/18 09:18; Start 07/05/18 at 07:30 Potassium Chloride (Klor-Con) 20 meq DAILYWBKFT PO Last administered on 07/09/18 09:22; Start 07/05/18 at 08:00 Prednisone (Prednisone) 60 mg DAILY PO Last administered on 07/08/18 08:28; Start 07/05/18 at 09:00; Stop 07/08/18 at 16:15; Status DC Temazepam (Restoril) 7.5 mg PRN QHS PRN PO INSOMNIA Last administered on 07/09/18 21:15; Start 07/04/18 at 17:15 Lidocaine (Lidoderm) 1 patch DAILY TD Last administered on 07/09/18 09:22; Start 07/05/18 at 09:00 Rivaroxaban (Xarelto) 15 mg BIDWMEALS PO Last administered on 07/08/18 08:29; Start 07/04/18 at 21:00; Stop 07/08/18 at 16:58; Status DC Sodium Chloride 1,000 ml @ 1,000 mls/hr 1X ONCE IV Last administered on 07/04/18at 18:35; Start 07/04/18 at 17:15; Stop 07/04/18 at 18:14; Status DC Sodium Chloride 1,000 ml @ 1,000 mls/hr 1X ONCE IV Last administered on 07/04/18at 20:05; Start 07/04/18 at 17:15; Stop 07/04/18 at 18:14; Status DC Ceftriaxone Sodium (Rocephin) 1 gm 1X ONCE IVP Last administered on 07/04/18at 20:21; Start 07/04/18 at 17:15; Stop 07/04/18 at 17:23; Status DC Ondansetron HCl (Zofran) 4 mg PRN Q8HRS PRN IV NAUSEA/VOMITING; Start 07/04/18 at 18:30; Stop 07/05/18 at 18:29; Status DC Morphine Sulfate (Morphine Sulfate) 2 mg PRN Q2HR PRN IV PAIN; Start 07/04/18 at 18:30; Stop 07/05/18 at 18:29; Status DC Acetaminophen (Tylenol) 650 mg PRN Q4HRS PRN PO FEVER; Start 07/04/18 at 18:30; Stop 07/05/18 at 18:29; Status DC Albuterol/ Ipratropium (Duoneb) 3 ml RTQID NEB ; Start 07/04/18 at 20:00; Stop 07/05/18 at 19:59; Status UNV Info (Anti-Coagulation Monitoring By Pharmacy) 1 each PRN DAILY PRN MC SEE COMMENTS Last administered on 07/05/18at 09:41; Start 07/04/18 at 20:45 Doxycycline Hyclate (Vibra-Tab) 100 mg BID PO Last administered on 07/09/18at 21:14; Start 07/05/18 at 21:00 Docusate Sodium (Colace) 100 mg BID PO Last administered on 07/09/18at 09:18; Start 07/06/18 at 12:00 Fluticasone Propionate (Flonase) 2 spray DAILY NS ; Start 07/07/18 at 09:00; Status UNV Lactobacillus Rhamnosus (Culturelle) 1 cap BID PO Last administered on 07/08/18at 08:29; Start 07/07/18 at 21:00; Stop 07/08/18 at 12:57; Status DC Ceftriaxone Sodium (Rocephin) 1 gm Q24H IVP Last administered on 07/09/18at 14:32; Start 07/07/18 at 14:00 Dextrose (Dextrose 50%-Water Syringe) 12.5 gm PRN Q15MIN PRN IV SEE COMMENTS; Start 07/07/18 at 17:30; Status UNV Insulin Human Lispro (HumaLOG) 0-7 UNITS QIDACHS SQ ; Start 07/07/18 at 17:30; Stop 07/07/18 at 17:53; Status DC Dextrose (Dextrose 50%-Water Syringe) 12.5 gm PRN Q15MIN PRN IV SEE COMMENTS; Start 07/07/18 at 17:30 Insulin Human Lispro (HumaLOG) 0-5 UNITS TIDWMEALS SQ Last administered on 07/08/18at 12:15; Start 07/07/18 at 18:00; Stop 07/08/18 at 16:55; Status DC Dextrose (Dextrose 50%-Water Syringe) 12.5 gm PRN Q15MIN PRN IV SEE COMMENTS; Start 07/07/18 at 18:00; Status UNV Prednisone (Prednisone) 20 mg DAILY PO Last administered on 07/09/18at 09:19; Start 07/09/18 at 09:00 Insulin Human Lispro (HumaLOG) 0-7 UNITS QIDACHS SQ Last administered on 07/09/18at 17:59; Start 07/08/18 at 21:00 Dextrose (Dextrose 50%-Water Syringe) 12.5 gm PRN Q15MIN PRN IV SEE COMMENTS; Start 07/08/18 at 17:00; Status UNV Info (Hold Preop Anti-Coag Meds) 1 ea CONT PRN PRN MC SEE COMMENTS; Start 07/08/18 at 17:00 Insulin Human Lispro (HumaLOG) 8 units 1X ONCE SQ Last administered on 07/08/18at 17:31; Start 07/08/18 at 17:00; Stop 07/08/18 at 17:02; Status DC Lactobacillus Rhamnosus (Culturelle) 1 cap BID PO ; Start 07/09/18 at 21:00; Status Cancel Enoxaparin Sodium (Lovenox 80mg Syringe) 80 mg Q12HR SQ Last administered on 07/09/18at 21:16; Start 07/09/18 at 13:00 Albuterol Sulfate (Ventolin Neb Soln) 2.5 mg PRN Q4HRS PRN NEB SHORTNESS OF BREATH Last administered on 07/10/18at 02:50; Start 07/09/18 at 14:15 Active Scripts Active Augmentin 875-125 Tablet (Amoxicillin/Potassium Clav) 1 Each Tablet 1 Tab PO BID Tramadol Hcl 50 Mg Tablet 50 Mg PO Q6HRS PRN Prednisone (Prednisone) 10 Mg Tablet 10 Mg PO UD Take 3 tablets by mouth twice a day for 3 days, then take 2 tablets by mouth twice a day for 3 days, then take 1 tablet by mouth twice a day for 3 days, then take 1 tablet by mouth daily x 3 days, then stop. Ativan (Lorazepam) 1 Mg Tablet 1 Mg PO BID Guaifenesin 100 Mg/5 Ml Liquid 200 Mg PO PRN Q4HRS PRN 30 Days Tylenol (Acetaminophen) 325 Mg Tablet 650 Mg PO PRN Q4HRS PRN 10 Days Ventolin Hfa Inhaler (Albuterol Sulfate) 18 Gm Hfa.aer.ad 2 Puff INH Q4HRS Reglan (Metoclopramide Hcl) 10 Mg Tablet 0.5 Tab PO QID 30 Days Albuterol Sulfate Neb Soln (Albuterol Sulfate) 2.5 Mg/3 Ml Vial.neb 1 Vial NEB PRN Q4HRS Reported Furosemide 40 Mg Tablet 1 Tab PO DAILY Vitamin D3 (Cholecalciferol (Vitamin D3)) 5,000 Unit Tablet 5,000 Unit PO DAILY Potassium Chloride 20 Meq Tablet.er 20 Meq PO DAILY Protonix (Pantoprazole Sodium) 20 Mg Tablet.dr 1 Tab PO DAILY Flonase Allergy Relief (Fluticasone Propionate) 9.9 Ml [place].susp 2 Sprays NS DAILY Atorvastatin Calcium 10 Mg Tablet 10 Mg PO HS Symbicort 160-4.5 Mcg Inhaler (Budesonide/Formoterol Fumarate) 10.2 Gm Hfa.aer.ad 2 Puff IH BID Vitals/I & O Vital Sign - Last 24 Hours 07/09/18 07/09/18 07/09/18 07/09/18 09:19 11:00 15:00 15:17 Temp 98.2 98.3 98.2 98.3 Pulse 118 109 Resp 16 14 B/P (MAP) 114/75 (88) 128/83 (98) Pulse Ox 98 98 O2 Delivery Nasal Cannula Nasal Cannula Nasal Cannula Nasal Cannula O2 Flow Rate 3.0 3.0 3.0 3.0 07/09/18 07/09/18 07/09/18 07/09/18 17:54 18:54 19:45 20:15 Temp 99.2 99.2 Pulse 64 Resp 20 B/P (MAP) 126/85 (99) Pulse Ox 100 O2 Delivery Nasal Cannula Nasal Cannula Nasal Cannula Nasal Cannula O2 Flow Rate 3.0 4.0 3.0 4.0 07/09/18 07/09/18 07/10/18 07/10/18 20:34 22:41 02:50 03:18 Temp 98.6 98.7 98.6 98.7 Pulse 105 97 Resp 18 18 B/P (MAP) 118/76 (90) 129/70 (89) Pulse Ox 98 99 O2 Delivery Nasal Cannula Nasal Cannula Nasal Cannula Nasal Cannula O2 Flow Rate 3.0 3.0 3.0 3.0 07/10/18 07:22 Pulse Ox 99 O2 Delivery Nasal Cannula O2 Flow Rate 3.0 l Intake and Output 07/09/18 07/09/18 07/10/18 15:00 23:00 07:00 Intake Total 300 ml Output Total 1225 ml 525 ml 175 ml Balance -1225 ml -525 ml 125 ml KIRSTIE TREVINO MD July 10, 2018 08:05
[2018-07-10] MEDS: POTASSIUM CHLORIDE 20 MEQ TABLET.ER. PO SCH (08:31)
[2018-07-10] MEDS: CHOLECALCIFEROL (VITAMIN D3) 5,000 UNIT CAPSULE PO SCH (08:31)
[2018-07-10] MEDS: LORazepam 1 MG TABLET PO SCH ×2 (08:31→21:57)
[2018-07-10] MEDS: predniSONE 20 MG TABLET PO SCH (08:31)
[2018-07-10] MEDS: DOCUSATE SODIUM 100 MG CAPSULE. PO SCH ×2 (08:31→21:00)
[2018-07-10] MEDS: METOCLOPRAMIDE 10 MG TABLET. PO SCH ×4 (08:32→21:57)
[2018-07-10] MEDS: PANTOPRAZOLE 40 MG TABLET.DR. PO SCH (08:32)
[2018-07-10] MEDS: DOXYCYCLINE HYCLATE 100 MG TABLET PO SCH ×2 (08:32→21:57)
[2018-07-10] MEDS: FUROSEMIDE 40 MG TABLET. PO SCH (08:32)
[2018-07-10] MEDS: FLUTICASONE 50MCG/NASAL SPRAY 16GM BOTTLE. NS SCH (08:33)
[2018-07-10] MEDS: LIDOCAINE (700MG/PATCH) PATCH. TD SCH (08:37)
[2018-07-10] MEDS: traMADol 50 MG TABLET PO PRN ×3 (08:40→21:58)
[2018-07-10 09:49] LABS: BASO % 0 % (0-3); EOS # 0.1 x10^3/uL (0.0-0.7); EOS % 1 % (0-3); HEMOGLOBIN 10.9 g/dL (13.0-17.5); LYMPH # 0.3 x10^3/uL (1.0-4.8); LYMPH % 5 % (24-48); MEAN CORPUSCULAR HEMOGLOBIN 29 pg (25-35); MEAN CORPUSCULAR HGB CONC 33 g/dL (31-37); MEAN CORPUSCULAR VOLUME 88 fL (79-100); MONO # 0.2 x10^3/uL (0.0-1.1); MONO % 4 % (0-9); NEUT # 5.2 x10^3uL (1.8-7.7); NEUT % 90 % (31-73); PLATELET COUNT 135 x10^3/uL (140-400); RED BLOOD COUNT 3.75 x10^6/uL (4.30-5.70); RED CELL DISTRIBUTION WIDTH 15.8 % (11.5-14.5); WHITE BLOOD COUNT 5.8 x10^3/uL (4.0-11.0)
[2018-07-10 10:19] LABS: CALCIUM 8.9 mg/dL (8.5-10.1); CREATININE 0.9 mg/dL (0.7-1.3); GFR 104.5; POTASSIUM 3.8 mmol/L (3.5-5.1)
--- NOTE | 2018-07-10 10:25 | NUR ---
SS following up with discharge planning. Pt accepted at [facility], ; fax [phone]. Physician notified.
[2018-07-10 11:00] VITALS: BP 131/75
--- NOTE | 2018-07-10 11:45 | PDOC ---
PULMONARY PROGRESS NOTES Subjective still soa at times Vitals Vital Signs Date Time Temp Pulse Resp B/P (MAP) Pulse Ox O2 Delivery O2 Flow Rate FiO2 07/10/18 11:17 99 Nasal Cannula 3.0 07/10/18 11:00 99.3 117 12 131/75 (93) 99.3 ROS: No Nausea General: Alert, No acute distress Lungs: Other (poor air flow) Cardiovascular: S1, S2 Abdomen: Soft, Non-tender Neuro Exam: Alert Extremities: No Edema, Other Skin: Warm Labs Laboratory Tests Test 07/08/18 16:46 07/08/18 20:24 07/09/18 04:00 07/09/18 07:12 Glucose (Fingerstick) 373 mg/dL (70-99) 334 mg/dL (70-99) 124 mg/dL (70-99) White Blood Count 6.9 x10^3/uL (4.0-11.0) Red Blood Count 3.38 x10^6/uL (4.30-5.70) Hemoglobin 9.7 g/dL (13.0-17.5) Hematocrit 29.3 % (39.0-53.0) Mean Corpuscular Volume 87 fL (79-100) Mean Corpuscular Hemoglobin 29 pg (25-35) Mean Corpuscular Hemoglobin Concent 33 g/dL (31-37) Red Cell Distribution Width 15.2 % (11.5-14.5) Platelet Count 141 x10^3/uL (140-400) Neutrophils (%) (Auto) 89 % (31-73) Lymphocytes (%) (Auto) 4 % (24-48) Monocytes (%) (Auto) 6 % (0-9) Eosinophils (%) (Auto) 0 % (0-3) Basophils (%) (Auto) 0 % (0-3) Neutrophils # (Auto) 6.2 x10^3uL (1.8-7.7) Lymphocytes # (Auto) 0.3 x10^3/uL (1.0-4.8) Monocytes # (Auto) 0.4 x10^3/uL (0.0-1.1) Eosinophils # (Auto) 0.0 x10^3/uL (0.0-0.7) Basophils # (Auto) 0.0 x10^3/uL (0.0-0.2) Prothrombin Time 13.4 SEC (11.7-14.0) Prothromb Time International Ratio 1.1 (0.8-1.1) Activated Partial Thromboplast Time 24 SEC (24-38) Sodium Level 141 mmol/L (136-145) Potassium Level 3.6 mmol/L (3.5-5.1) Chloride Level 100 mmol/L (98-107) Carbon Dioxide Level 36 mmol/L (21-32) Anion Gap 5 (6-14) Blood Urea Nitrogen 14 mg/dL (8-26) Creatinine 0.8 mg/dL (0.7-1.3) Estimated GFR (Cockcroft-Gault) 119.7 Glucose Level 137 mg/dL (70-99) Calcium Level 8.9 mg/dL (8.5-10.1) Test 07/09/18 11:43 07/09/18 17:33 07/09/18 20:48 07/10/18 07:35 Glucose (Fingerstick) 269 mg/dL (70-99) 323 mg/dL (70-99) 185 mg/dL (70-99) 106 mg/dL (70-99) Test 07/10/18 08:54 White Blood Count 5.8 x10^3/uL (4.0-11.0) Red Blood Count 3.75 x10^6/uL (4.30-5.70) Hemoglobin 10.9 g/dL (13.0-17.5) Hematocrit 33.0 % (39.0-53.0) Mean Corpuscular Volume 88 fL (79-100) Mean Corpuscular Hemoglobin 29 pg (25-35) Mean Corpuscular Hemoglobin Concent 33 g/dL (31-37) Red Cell Distribution Width 15.8 % (11.5-14.5) Platelet Count 135 x10^3/uL (140-400) Neutrophils (%) (Auto) 90 % (31-73) Lymphocytes (%) (Auto) 5 % (24-48) Monocytes (%) (Auto) 4 % (0-9) Eosinophils (%) (Auto) 1 % (0-3) Basophils (%) (Auto) 0 % (0-3) Neutrophils # (Auto) 5.2 x10^3uL (1.8-7.7) Lymphocytes # (Auto) 0.3 x10^3/uL (1.0-4.8) Monocytes # (Auto) 0.2 x10^3/uL (0.0-1.1) Eosinophils # (Auto) 0.1 x10^3/uL (0.0-0.7) Basophils # (Auto) 0.0 x10^3/uL (0.0-0.2) Sodium Level 140 mmol/L (136-145) Potassium Level 3.8 mmol/L (3.5-5.1) Chloride Level 99 mmol/L (98-107) Carbon Dioxide Level 32 mmol/L (21-32) Anion Gap 9 (6-14) Blood Urea Nitrogen 13 mg/dL (8-26) Creatinine 0.9 mg/dL (0.7-1.3) Estimated GFR (Cockcroft-Gault) 104.5 Glucose Level 126 mg/dL (70-99) Calcium Level 8.9 mg/dL (8.5-10.1) Laboratory Tests Test 07/09/18 17:33 07/09/18 20:48 07/10/18 07:35 07/10/18 08:54 Glucose (Fingerstick) 323 mg/dL (70-99) 185 mg/dL (70-99) 106 mg/dL (70-99) White Blood Count 5.8 x10^3/uL (4.0-11.0) Red Blood Count 3.75 x10^6/uL (4.30-5.70) Hemoglobin 10.9 g/dL (13.0-17.5) Hematocrit 33.0 % (39.0-53.0) Mean Corpuscular Volume 88 fL (79-100) Mean Corpuscular Hemoglobin 29 pg (25-35) Mean Corpuscular Hemoglobin Concent 33 g/dL (31-37) Red Cell Distribution Width 15.8 % (11.5-14.5) Platelet Count 135 x10^3/uL (140-400) Neutrophils (%) (Auto) 90 % (31-73) Lymphocytes (%) (Auto) 5 % (24-48) Monocytes (%) (Auto) 4 % (0-9) Eosinophils (%) (Auto) 1 % (0-3) Basophils (%) (Auto) 0 % (0-3) Neutrophils # (Auto) 5.2 x10^3uL (1.8-7.7) Lymphocytes # (Auto) 0.3 x10^3/uL (1.0-4.8) Monocytes # (Auto) 0.2 x10^3/uL (0.0-1.1) Eosinophils # (Auto) 0.1 x10^3/uL (0.0-0.7) Basophils # (Auto) 0.0 x10^3/uL (0.0-0.2) Sodium Level 140 mmol/L (136-145) Potassium Level 3.8 mmol/L (3.5-5.1) Chloride Level 99 mmol/L (98-107) Carbon Dioxide Level 32 mmol/L (21-32) Anion Gap 9 (6-14) Blood Urea Nitrogen 13 mg/dL (8-26) Creatinine 0.9 mg/dL (0.7-1.3) Estimated GFR (Cockcroft-Gault) 104.5 Glucose Level 126 mg/dL (70-99) Calcium Level 8.9 mg/dL (8.5-10.1) Medications Active Scripts Medications Dose Route/Sig Max Daily Dose Days Date Category Dose Instructions Augmentin 875-125 Tablet (Amoxicillin/Potassium Clav) 1 Each Tablet 1 Tab PO BID 06/25/18 Rx Tramadol Hcl 50 Mg Tablet 50 Mg PO Q6HRS PRN 06/25/18 Rx Prednisone (Prednisone) 10 Mg Tablet 10 Mg PO UD 06/25/18 Rx Take 3 tablets by mouth twice a day for 3 days, then take 2 tablets by mouth twice a day for 3 days, then take 1 tablet by mouth twice a day for 3 days, then take 1 tablet by mouth daily x 3 days, then stop. Furosemide 40 Mg Tablet 1 Tab PO DAILY 06/20/18 Reported Ativan (Lorazepam) 1 Mg Tablet 1 Mg PO BID 06/15/18 Rx Guaifenesin 100 Mg/5 Ml Liquid 200 Mg PO PRN Q4HRS PRN 30 05/30/18 Rx Tylenol (Acetaminophen) 325 Mg Tablet 650 Mg PO PRN Q4HRS PRN 10 05/30/18 Rx Ventolin Hfa Inhaler (Albuterol Sulfate) 18 Gm Hfa.aer.ad 2 Puff INH Q4HRS 05/10/18 Rx Vitamin D3 (Cholecalciferol (Vitamin D3)) 5,000 Unit Tablet 5,000 Unit PO DAILY 03/15/18 Reported Reglan (Metoclopramide Hcl) 10 Mg Tablet 0.5 Tab PO QID 30 02/14/18 Rx Potassium Chloride 20 Meq Tablet.er 20 Meq PO DAILY 01/13/18 Reported Protonix (Pantoprazole Sodium) 20 Mg Tablet.dr 1 Tab PO DAILY 11/18/17 Reported Flonase Allergy Relief (Fluticasone Propionate) 9.9 Ml [place].susp 2 Sprays NS DAILY 11/18/17 Reported Atorvastatin Calcium 10 Mg Tablet 10 Mg PO HS 08/21/17 Reported Albuterol Sulfate Neb Soln (Albuterol Sulfate) 2.5 Mg/3 Ml Vial.neb 1 Vial NEB PRN Q4HRS 07/10/17 Rx Symbicort 160-4.5 Mcg Inhaler (Budesonide/Formoterol Fumarate) 10.2 Gm Hfa.aer.ad 2 Puff IH BID 09/21/15 Reported Comments reviewed, 05/30/18 ct 1. Severe emphysema with a prominent bullous component on the left. 2. Chronic pleural/parenchymal scarring. 3. New small spiculated opacity in the right lower lobe which may be inflammatory or neoplastic. CT follow-up is suggested. Impression . IMPRESSION: 1. [id number] hypoxemic hypercapnic respiratory failure. 2. Acute exacerbation of chronic obstructive pulmonary disease. 3. Recent pulmonary embolism diagnosed at [facility] approximately a week ago. The patient presented on Xarelto. 4. Epistaxis and left subconjunctival hemorrhage, resulting from cough and increased pressure. resolved 5. Hypertension. 6. Depression. 7. Tobacco dependence, in remission. 8. abnl ct of chest, rll density 9. allergic rhinitis 10. compressive fracture lower back 07/07 IMPRESSION: Resolution of previously seen spiculated nodule consistent with a benign inflammatory or infectious nodule. There is a new small groundglass lung infiltrate within the posterior right lower lobe most likely representing atelectasis. Stable compression fractures of T1 and T6. Increase in compression fracture of the superior endplate of T12. New compression fracture of T9. The latter 2 findings are stable from CT study of the thoracic spine performed on July 06, 2018. Note-only 11 ribs. Plan . d/w patient/ RT add BIPAP qhs and prn decrease pred kyphoplasty per IR nebs continue same otherwise AntiCoag after kypho VIN MEAD MD July 10, 2018 11:45
--- NOTE | 2018-07-10 12:27 | PDOC ---
PROGRESS NOTES Subjective Subjective He admits continued back pain. Objective Objective Vital Signs Date Time Temp Pulse Resp B/P (MAP) Pulse Ox O2 Delivery O2 Flow Rate FiO2 07/10/18 11:17 99 Nasal Cannula 3.0 07/10/18 11:00 99.3 117 12 131/75 (93) 99.3 Intake and Output 07/10/18 07:00 Intake Total 300 ml Output Total 1925 ml Balance -1625 ml Intake Oral 300 ml Output Urine Total 1925 ml Physical Exam Physical Exam He is alert and in no acute distress and he continues to be independent with his mobility. Assessment Assessment Problems Medical Problems: (1) COPD with exacerbation Status: Acute (2) Hyperglycemia Status: Acute (3) Pulmonary embolism Status: Acute (4) Shortness of breath Status: Acute Plan Plan of Care waiting for mri and T9 kyphoplasty. Comment Review of Relevant I have reviewed the following items franki (where applicable) has been applied. Labs Laboratory Tests Test 07/08/18 16:46 07/08/18 20:24 07/09/18 04:00 07/09/18 07:12 Glucose (Fingerstick) 373 mg/dL (70-99) 334 mg/dL (70-99) 124 mg/dL (70-99) White Blood Count 6.9 x10^3/uL (4.0-11.0) Red Blood Count 3.38 x10^6/uL (4.30-5.70) Hemoglobin 9.7 g/dL (13.0-17.5) Hematocrit 29.3 % (39.0-53.0) Mean Corpuscular Volume 87 fL (79-100) Mean Corpuscular Hemoglobin 29 pg (25-35) Mean Corpuscular Hemoglobin Concent 33 g/dL (31-37) Red Cell Distribution Width 15.2 % (11.5-14.5) Platelet Count 141 x10^3/uL (140-400) Neutrophils (%) (Auto) 89 % (31-73) Lymphocytes (%) (Auto) 4 % (24-48) Monocytes (%) (Auto) 6 % (0-9) Eosinophils (%) (Auto) 0 % (0-3) Basophils (%) (Auto) 0 % (0-3) Neutrophils # (Auto) 6.2 x10^3uL (1.8-7.7) Lymphocytes # (Auto) 0.3 x10^3/uL (1.0-4.8) Monocytes # (Auto) 0.4 x10^3/uL (0.0-1.1) Eosinophils # (Auto) 0.0 x10^3/uL (0.0-0.7) Basophils # (Auto) 0.0 x10^3/uL (0.0-0.2) Prothrombin Time 13.4 SEC (11.7-14.0) Prothromb Time International Ratio 1.1 (0.8-1.1) Activated Partial Thromboplast Time 24 SEC (24-38) Sodium Level 141 mmol/L (136-145) Potassium Level 3.6 mmol/L (3.5-5.1) Chloride Level 100 mmol/L (98-107) Carbon Dioxide Level 36 mmol/L (21-32) Anion Gap 5 (6-14) Blood Urea Nitrogen 14 mg/dL (8-26) Creatinine 0.8 mg/dL (0.7-1.3) Estimated GFR (Cockcroft-Gault) 119.7 Glucose Level 137 mg/dL (70-99) Calcium Level 8.9 mg/dL (8.5-10.1) Test 07/09/18 11:43 07/09/18 17:33 07/09/18 20:48 07/10/18 07:35 Glucose (Fingerstick) 269 mg/dL (70-99) 323 mg/dL (70-99) 185 mg/dL (70-99) 106 mg/dL (70-99) Test 07/10/18 08:54 07/10/18 12:00 White Blood Count 5.8 x10^3/uL (4.0-11.0) Red Blood Count 3.75 x10^6/uL (4.30-5.70) Hemoglobin 10.9 g/dL (13.0-17.5) Hematocrit 33.0 % (39.0-53.0) Mean Corpuscular Volume 88 fL (79-100) Mean Corpuscular Hemoglobin 29 pg (25-35) Mean Corpuscular Hemoglobin Concent 33 g/dL (31-37) Red Cell Distribution Width 15.8 % (11.5-14.5) Platelet Count 135 x10^3/uL (140-400) Neutrophils (%) (Auto) 90 % (31-73) Lymphocytes (%) (Auto) 5 % (24-48) Monocytes (%) (Auto) 4 % (0-9) Eosinophils (%) (Auto) 1 % (0-3) Basophils (%) (Auto) 0 % (0-3) Neutrophils # (Auto) 5.2 x10^3uL (1.8-7.7) Lymphocytes # (Auto) 0.3 x10^3/uL (1.0-4.8) Monocytes # (Auto) 0.2 x10^3/uL (0.0-1.1) Eosinophils # (Auto) 0.1 x10^3/uL (0.0-0.7) Basophils # (Auto) 0.0 x10^3/uL (0.0-0.2) Sodium Level 140 mmol/L (136-145) Potassium Level 3.8 mmol/L (3.5-5.1) Chloride Level 99 mmol/L (98-107) Carbon Dioxide Level 32 mmol/L (21-32) Anion Gap 9 (6-14) Blood Urea Nitrogen 13 mg/dL (8-26) Creatinine 0.9 mg/dL (0.7-1.3) Estimated GFR (Cockcroft-Gault) 104.5 Glucose Level 126 mg/dL (70-99) Calcium Level 8.9 mg/dL (8.5-10.1) Glucose (Fingerstick) 268 mg/dL (70-99) Laboratory Tests Test 07/09/18 17:33 07/09/18 20:48 07/10/18 07:35 07/10/18 08:54 Glucose (Fingerstick) 323 mg/dL (70-99) 185 mg/dL (70-99) 106 mg/dL (70-99) White Blood Count 5.8 x10^3/uL (4.0-11.0) Red Blood Count 3.75 x10^6/uL (4.30-5.70) Hemoglobin 10.9 g/dL (13.0-17.5) Hematocrit 33.0 % (39.0-53.0) Mean Corpuscular Volume 88 fL (79-100) Mean Corpuscular Hemoglobin 29 pg (25-35) Mean Corpuscular Hemoglobin Concent 33 g/dL (31-37) Red Cell Distribution Width 15.8 % (11.5-14.5) Platelet Count 135 x10^3/uL (140-400) Neutrophils (%) (Auto) 90 % (31-73) Lymphocytes (%) (Auto) 5 % (24-48) Monocytes (%) (Auto) 4 % (0-9) Eosinophils (%) (Auto) 1 % (0-3) Basophils (%) (Auto) 0 % (0-3) Neutrophils # (Auto) 5.2 x10^3uL (1.8-7.7) Lymphocytes # (Auto) 0.3 x10^3/uL (1.0-4.8) Monocytes # (Auto) 0.2 x10^3/uL (0.0-1.1) Eosinophils # (Auto) 0.1 x10^3/uL (0.0-0.7) Basophils # (Auto) 0.0 x10^3/uL (0.0-0.2) Sodium Level 140 mmol/L (136-145) Potassium Level 3.8 mmol/L (3.5-5.1) Chloride Level 99 mmol/L (98-107) Carbon Dioxide Level 32 mmol/L (21-32) Anion Gap 9 (6-14) Blood Urea Nitrogen 13 mg/dL (8-26) Creatinine 0.9 mg/dL (0.7-1.3) Estimated GFR (Cockcroft-Gault) 104.5 Glucose Level 126 mg/dL (70-99) Calcium Level 8.9 mg/dL (8.5-10.1) Test 07/10/18 12:00 Glucose (Fingerstick) 268 mg/dL (70-99) Microbiology 07/05/18 Blood Culture - Final, Complete Medications Current Medications Albuterol/ Ipratropium (Duoneb) 3 ml 1X ONCE NEB Last administered on 07/04/18at 16:30; Start 07/04/18 at 16:30; Stop 07/04/18 at 16:31; Status DC Methylprednisolone Sodium Succinate (SOLU-Medrol 125MG VIAL) 125 mg 1X ONCE IV Last administered on 07/04/18at 16:55; Start 07/04/18 at 16:30; Stop 07/04/18 at 16:31; Status DC Acetaminophen/ Hydrocodone Bitart (Lortab 5/325) 2 tab 1X ONCE PO Last administered on 07/04/18 16:54; Start 07/04/18 at 16:30; Stop 07/04/18 at 16:31; Status DC Albuterol/ Ipratropium (Duoneb) 3 ml RTQID NEB Last administered on 07/10/18 11:16; Start 07/04/18 at 20:00 Guaifenesin (Robitussin Dm) 10 ml PRN Q6HRS PRN PO COUGH; Start 07/04/18 at 17:00 Acetaminophen (Tylenol) 650 mg PRN Q4HRS PRN PO TEMP OVER 100.4F OR MILD PAIN; Start 07/04/18 at 17:00; Status UNV Atorvastatin Calcium (Lipitor) 10 mg HS PO Last administered on 07/09/18 21:15; Start 07/04/18 at 21:00 Furosemide (Lasix) 40 mg DAILY PO Last administered on 07/10/18 08:32; Start 07/05/18 at 09:00 Lorazepam (Ativan) 1 mg BID PO Last administered on 07/10/18 08:31; Start 07/04/18 at 21:00 Metoclopramide HCl (Reglan) 5 mg QIDACHS PO Last administered on 07/10/18 12:14; Start 07/04/18 at 18:00 Tramadol HCl (Ultram) 50 mg PRN Q6HRS PRN PO PAIN Last administered on 07/10/18 08:40; Start 07/04/18 at 17:00 Vitamin D (Vitamin D3) 5,000 unit DAILY PO Last administered on 07/10/18 08:31; Start 07/05/18 at 09:00 Fluticasone Propionate (Flonase) 2 spray DAILY NS Last administered on 09:17; Start 07/05/18 at 09:00 Pantoprazole Sodium (Protonix) 40 mg DAILYAC PO Last administered on 07/10/18 08:32; Start 07/05/18 at 07:30 Potassium Chloride (Klor-Con) 20 meq DAILYWBKFT PO Last administered on 07/10/18 08:31; Start 07/05/18 at 08:00 Prednisone (Prednisone) 60 mg DAILY PO Last administered on 07/08/18at 08:28; Start 07/05/18 at 09:00; Stop 07/08/18 at 16:15; Status DC Temazepam (Restoril) 7.5 mg PRN QHS PRN PO INSOMNIA Last administered on 07/09/18 21:15; Start 07/04/18 at 17:15 Lidocaine (Lidoderm) 1 patch DAILY TD Last administered on 07/10/18at 08:37; Start 07/05/18 at 09:00 Rivaroxaban (Xarelto) 15 mg BIDWMEALS PO Last administered on 07/08/18at 08:29; Start 07/04/18 at 21:00; Stop 07/08/18 at 16:58; Status DC Sodium Chloride 1,000 ml @ 1,000 mls/hr 1X ONCE IV Last administered on 07/04/18at 18:35; Start 07/04/18 at 17:15; Stop 07/04/18 at 18:14; Status DC Sodium Chloride 1,000 ml @ 1,000 mls/hr 1X ONCE IV Last administered on 07/04/18at 20:05; Start 07/04/18 at 17:15; Stop 07/04/18 at 18:14; Status DC Ceftriaxone Sodium (Rocephin) 1 gm 1X ONCE IVP Last administered on 07/04/18at 20:21; Start 07/04/18 at 17:15; Stop 07/04/18 at 17:23; Status DC Ondansetron HCl (Zofran) 4 mg PRN Q8HRS PRN IV NAUSEA/VOMITING; Start 07/04/18 at 18:30; Stop 07/05/18 at 18:29; Status DC Morphine Sulfate (Morphine Sulfate) 2 mg PRN Q2HR PRN IV PAIN; Start 07/04/18 at 18:30; Stop 07/05/18 at 18:29; Status DC Acetaminophen (Tylenol) 650 mg PRN Q4HRS PRN PO FEVER; Start 07/04/18 at 18:30; Stop 07/05/18 at 18:29; Status DC Albuterol/ Ipratropium (Duoneb) 3 ml RTQID NEB ; Start 07/04/18 at 20:00; Stop 07/05/18 at 19:59; Status UNV Info (Anti-Coagulation Monitoring By Pharmacy) 1 each PRN DAILY PRN MC SEE COMMENTS Last administered on 07/05/18at 09:41; Start 07/04/18 at 20:45 Doxycycline Hyclate (Vibra-Tab) 100 mg BID PO Last administered on 07/10/18 08:32; Start 07/05/18 at 21:00 Docusate Sodium (Colace) 100 mg BID PO Last administered on 07/10/18at 08:31; Start 07/06/18 at 12:00 Fluticasone Propionate (Flonase) 2 spray DAILY NS ; Start 07/07/18 at 09:00; Status UNV Lactobacillus Rhamnosus (Culturelle) 1 cap BID PO Last administered on 07/08/18at 08:29; Start 07/07/18 at 21:00; Stop 07/08/18 at 12:57; Status DC Ceftriaxone Sodium (Rocephin) 1 gm Q24H IVP Last administered on 07/09/18at 14:32; Start 07/07/18 at 14:00 Dextrose (Dextrose 50%-Water Syringe) 12.5 gm PRN Q15MIN PRN IV SEE COMMENTS; Start 07/07/18 at 17:30; Status UNV Insulin Human Lispro (HumaLOG) 0-7 UNITS QIDACHS SQ ; Start 07/07/18 at 17:30; Stop 07/07/18 at 17:53; Status DC Dextrose (Dextrose 50%-Water Syringe) 12.5 gm PRN Q15MIN PRN IV SEE COMMENTS; Start 07/07/18 at 17:30 Insulin Human Lispro (HumaLOG) 0-5 UNITS TIDWMEALS SQ Last administered on 07/08/18at 12:15; Start 07/07/18 at 18:00; Stop 07/08/18 at 16:55; Status DC Dextrose (Dextrose 50%-Water Syringe) 12.5 gm PRN Q15MIN PRN IV SEE COMMENTS; Start 07/07/18 at 18:00; Status UNV Prednisone (Prednisone) 20 mg DAILY PO Last administered on 07/10/18at 08:31; Start 07/09/18 at 09:00 Insulin Human Lispro (HumaLOG) 0-7 UNITS QIDACHS SQ Last administered on 07/10/18at 12:19; Start 07/08/18 at 21:00 Dextrose (Dextrose 50%-Water Syringe) 12.5 gm PRN Q15MIN PRN IV SEE COMMENTS; Start 07/08/18 at 17:00; Status UNV Info (Hold Preop Anti-Coag Meds) 1 ea CONT PRN PRN MC SEE COMMENTS; Start 07/08/18 at 17:00 Insulin Human Lispro (HumaLOG) 8 units 1X ONCE SQ Last administered on 07/08/18at 17:31; Start 07/08/18 at 17:00; Stop 07/08/18 at 17:02; Status DC Lactobacillus Rhamnosus (Culturelle) 1 cap BID PO ; Start 07/09/18 at 21:00; Status Cancel Enoxaparin Sodium (Lovenox 80mg Syringe) 80 mg Q12HR SQ Last administered on 07/09/18at 21:16; Start 07/09/18 at 13:00 Albuterol Sulfate (Ventolin Neb Soln) 2.5 mg PRN Q4HRS PRN NEB SHORTNESS OF BREATH Last administered on 07/10/18at 02:50; Start 07/09/18 at 14:15 Active Scripts Active Augmentin 875-125 Tablet (Amoxicillin/Potassium Clav) 1 Each Tablet 1 Tab PO BID Tramadol Hcl 50 Mg Tablet 50 Mg PO Q6HRS PRN Prednisone (Prednisone) 10 Mg Tablet 10 Mg PO UD Take 3 tablets by mouth twice a day for 3 days, then take 2 tablets by mouth twice a day for 3 days, then take 1 tablet by mouth twice a day for 3 days, then take 1 tablet by mouth daily x 3 days, then stop. Ativan (Lorazepam) 1 Mg Tablet 1 Mg PO BID Guaifenesin 100 Mg/5 Ml Liquid 200 Mg PO PRN Q4HRS PRN 30 Days Tylenol (Acetaminophen) 325 Mg Tablet 650 Mg PO PRN Q4HRS PRN 10 Days Ventolin Hfa Inhaler (Albuterol Sulfate) 18 Gm Hfa.aer.ad 2 Puff INH Q4HRS Reglan (Metoclopramide Hcl) 10 Mg Tablet 0.5 Tab PO QID 30 Days Albuterol Sulfate Neb Soln (Albuterol Sulfate) 2.5 Mg/3 Ml Vial.neb 1 Vial NEB PRN Q4HRS Reported Furosemide 40 Mg Tablet 1 Tab PO DAILY Vitamin D3 (Cholecalciferol (Vitamin D3)) 5,000 Unit Tablet 5,000 Unit PO DAILY Potassium Chloride 20 Meq Tablet.er 20 Meq PO DAILY Protonix (Pantoprazole Sodium) 20 Mg Tablet.dr 1 Tab PO DAILY Flonase Allergy Relief (Fluticasone Propionate) 9.9 Ml [place].susp 2 Sprays NS DAILY Atorvastatin Calcium 10 Mg Tablet 10 Mg PO HS Symbicort 160-4.5 Mcg Inhaler (Budesonide/Formoterol Fumarate) 10.2 Gm Hfa.aer.ad 2 Puff IH BID Vitals/I & O Vital Sign - Last 24 Hours 07/09/18 07/09/18 07/09/18 07/09/18 15:00 15:17 17:54 19:45 Temp 98.3 98.3 Pulse 109 Resp 14 B/P (MAP) 128/83 (98) Pulse Ox 98 O2 Delivery Nasal Cannula Nasal Cannula Nasal Cannula Nasal Cannula O2 Flow Rate 3.0 3.0 3.0 3.0 07/09/18 07/09/18 07/09/18 07/10/18 20:15 20:34 22:41 02:50 Temp 99.2 98.6 99.2 98.6 Pulse 64 105 Resp 20 18 B/P (MAP) 126/85 (99) 118/76 (90) Pulse Ox 100 98 O2 Delivery Nasal Cannula Nasal Cannula Nasal Cannula Nasal Cannula O2 Flow Rate 4.0 3.0 3.0 3.0 07/10/18 07/10/18 07/10/18 07/10/18 03:18 07:00 07:22 08:00 Temp 98.7 98.7 98.7 98.7 Pulse 97 103 Resp 18 14 B/P (MAP) 129/70 (89) 131/83 (99) Pulse Ox 99 100 99 O2 Delivery Nasal Cannula Nasal Cannula Nasal Cannula Nasal Cannula O2 Flow Rate 3.0 3.0 3.0 3.0 07/10/18 07/10/18 07/10/18 07/10/18 08:40 09:40 11:00 11:17 Temp 99.3 99.3 Pulse 117 Resp 12 B/P (MAP) 131/75 (93) Pulse Ox 99 99 88 99 O2 Delivery Nasal Cannula Nasal Cannula Nasal Cannula Nasal Cannula O2 Flow Rate 3.0 3.0 3.0 3.0 Intake and Output 07/09/18 07/09/18 07/10/18 15:00 23:00 07:00 Intake Total 300 ml Output Total 1225 ml 525 ml 175 ml Balance -1225 ml -525 ml 125 ml SHELLY GOOD MD July 10, 2018 12:27
[2018-07-10] MEDS: cefTRIAXone IV Push 1 GM VIAL. IVP SCH (14:38)
[2018-07-10 15:00] VITALS: BP 119/80
[2018-07-10 19:03] VITALS: BP 112/75
[2018-07-10] MEDS: TEMAZEPAM 7.5 MG CAPSULE PO PRN (21:57)
[2018-07-10] MEDS: ATORVASTATIN CALCIUM 10 MG TABLET. PO SCH (21:57)
[2018-07-10 22:38] VITALS: BP 119/76
[2018-07-11 03:51] VITALS: BP 119/88
[2018-07-11] MEDS: traMADol 50 MG TABLET PO PRN ×4 (04:04→22:02)
[2018-07-11 06:22] VITALS: BP 128/85
[2018-07-11] MEDS: IPRATRPIUM/ALBUTEROL 0.5/2.5MG 3 ML NEBU. NEB SCH ×4 (06:35→18:26)
[2018-07-11] MEDS: METOCLOPRAMIDE 10 MG TABLET. PO SCH ×4 (07:30→21:50)
[2018-07-11] MEDS: INSULIN LISPRO 300 UNITS/3 ML INSULN.PEN. SQ SCH ×4 (07:30→21:57)
--- NOTE | 2018-07-11 07:52 | PDOC ---
PROGRESS NOTES Chief Complaint Chief Complaint Stage COPD, end stage. 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 Still short of breath and having back pain Agreeable to SNU placement Will be difficult, have to d/w IR for kyphoplasty because he needs a nticoagulation as well, has been continued on his xarelto which was held 07/08/18, transition to lovenox today, hold in the morning for kyphoplasty tomorrow as MRI was not available. Will start fentanyl patch as he cannot lay flat. Vitals Vitals Vital Signs Date Time Temp Pulse Resp B/P (MAP) Pulse Ox O2 Delivery O2 Flow Rate FiO2 07/11/18 06:35 100 Nasal Cannula 3.0 07/11/18 06:22 97.7 101 20 128/85 (99) 97.7 Physical Exam General: Alert, Oriented X3, Cooperative, No acute distress Lungs: Other (poor air flow) Abdomen: Normal bowel sounds, Soft, No tenderness, No hepatosplenomegaly, No masses Extremities: No clubbing, No cyanosis, No edema, Normal pulses, No tenderness/swelling Skin: Other (very dry skin, skin atrophy visible from chronic steroid use) Labs LABS Laboratory Tests Test 07/10/18 08:54 07/10/18 12:00 07/10/18 17:11 07/10/18 20:58 White Blood Count 5.8 x10^3/uL (4.0-11.0) Red Blood Count 3.75 x10^6/uL (4.30-5.70) Hemoglobin 10.9 g/dL (13.0-17.5) Hematocrit 33.0 % (39.0-53.0) Mean Corpuscular Volume 88 fL (79-100) Mean Corpuscular Hemoglobin 29 pg (25-35) Mean Corpuscular Hemoglobin Concent 33 g/dL (31-37) Red Cell Distribution Width 15.8 % (11.5-14.5) Platelet Count 135 x10^3/uL (140-400) Neutrophils (%) (Auto) 90 % (31-73) Lymphocytes (%) (Auto) 5 % (24-48) Monocytes (%) (Auto) 4 % (0-9) Eosinophils (%) (Auto) 1 % (0-3) Basophils (%) (Auto) 0 % (0-3) Neutrophils # (Auto) 5.2 x10^3uL (1.8-7.7) Lymphocytes # (Auto) 0.3 x10^3/uL (1.0-4.8) Monocytes # (Auto) 0.2 x10^3/uL (0.0-1.1) Eosinophils # (Auto) 0.1 x10^3/uL (0.0-0.7) Basophils # (Auto) 0.0 x10^3/uL (0.0-0.2) Sodium Level 140 mmol/L (136-145) Potassium Level 3.8 mmol/L (3.5-5.1) Chloride Level 99 mmol/L (98-107) Carbon Dioxide Level 32 mmol/L (21-32) Anion Gap 9 (6-14) Blood Urea Nitrogen 13 mg/dL (8-26) Creatinine 0.9 mg/dL (0.7-1.3) Estimated GFR (Cockcroft-Gault) 104.5 Glucose Level 126 mg/dL (70-99) Calcium Level 8.9 mg/dL (8.5-10.1) Glucose (Fingerstick) 268 mg/dL (70-99) 161 mg/dL (70-99) 253 mg/dL (70-99) Test 07/11/18 07:13 Glucose (Fingerstick) 131 mg/dL (70-99) Assessment and Plan Assessmemt and Plan Problems Medical Problems: (1) COPD with exacerbation Status: Acute (2) Hyperglycemia Status: Acute (3) Pulmonary embolism Status: Acute (4) Shortness of breath Status: Acute Comment Review of Relevant I have reviewed the following items franki (where applicable) has been applied. Labs Laboratory Tests Test 07/09/18 11:43 07/09/18 17:33 07/09/18 20:48 07/10/18 07:35 Glucose (Fingerstick) 269 mg/dL (70-99) 323 mg/dL (70-99) 185 mg/dL (70-99) 106 mg/dL (70-99) Test 07/10/18 08:54 07/10/18 12:00 07/10/18 17:11 07/10/18 20:58 White Blood Count 5.8 x10^3/uL (4.0-11.0) Red Blood Count 3.75 x10^6/uL (4.30-5.70) Hemoglobin 10.9 g/dL (13.0-17.5) Hematocrit 33.0 % (39.0-53.0) Mean Corpuscular Volume 88 fL (79-100) Mean Corpuscular Hemoglobin 29 pg (25-35) Mean Corpuscular Hemoglobin Concent 33 g/dL (31-37) Red Cell Distribution Width 15.8 % (11.5-14.5) Platelet Count 135 x10^3/uL (140-400) Neutrophils (%) (Auto) 90 % (31-73) Lymphocytes (%) (Auto) 5 % (24-48) Monocytes (%) (Auto) 4 % (0-9) Eosinophils (%) (Auto) 1 % (0-3) Basophils (%) (Auto) 0 % (0-3) Neutrophils # (Auto) 5.2 x10^3uL (1.8-7.7) Lymphocytes # (Auto) 0.3 x10^3/uL (1.0-4.8) Monocytes # (Auto) 0.2 x10^3/uL (0.0-1.1) Eosinophils # (Auto) 0.1 x10^3/uL (0.0-0.7) Basophils # (Auto) 0.0 x10^3/uL (0.0-0.2) Sodium Level 140 mmol/L (136-145) Potassium Level 3.8 mmol/L (3.5-5.1) Chloride Level 99 mmol/L (98-107) Carbon Dioxide Level 32 mmol/L (21-32) Anion Gap 9 (6-14) Blood Urea Nitrogen 13 mg/dL (8-26) Creatinine 0.9 mg/dL (0.7-1.3) Estimated GFR (Cockcroft-Gault) 104.5 Glucose Level 126 mg/dL (70-99) Calcium Level 8.9 mg/dL (8.5-10.1) Glucose (Fingerstick) 268 mg/dL (70-99) 161 mg/dL (70-99) 253 mg/dL (70-99) Test 07/11/18 07:13 Glucose (Fingerstick) 131 mg/dL (70-99) Laboratory Tests Test 07/10/18 08:54 07/10/18 12:00 07/10/18 17:11 07/10/18 20:58 White Blood Count 5.8 x10^3/uL (4.0-11.0) Red Blood Count 3.75 x10^6/uL (4.30-5.70) Hemoglobin 10.9 g/dL (13.0-17.5) Hematocrit 33.0 % (39.0-53.0) Mean Corpuscular Volume 88 fL (79-100) Mean Corpuscular Hemoglobin 29 pg (25-35) Mean Corpuscular Hemoglobin Concent 33 g/dL (31-37) Red Cell Distribution Width 15.8 % (11.5-14.5) Platelet Count 135 x10^3/uL (140-400) Neutrophils (%) (Auto) 90 % (31-73) Lymphocytes (%) (Auto) 5 % (24-48) Monocytes (%) (Auto) 4 % (0-9) Eosinophils (%) (Auto) 1 % (0-3) Basophils (%) (Auto) 0 % (0-3) Neutrophils # (Auto) 5.2 x10^3uL (1.8-7.7) Lymphocytes # (Auto) 0.3 x10^3/uL (1.0-4.8) Monocytes # (Auto) 0.2 x10^3/uL (0.0-1.1) Eosinophils # (Auto) 0.1 x10^3/uL (0.0-0.7) Basophils # (Auto) 0.0 x10^3/uL (0.0-0.2) Sodium Level 140 mmol/L (136-145) Potassium Level 3.8 mmol/L (3.5-5.1) Chloride Level 99 mmol/L (98-107) Carbon Dioxide Level 32 mmol/L (21-32) Anion Gap 9 (6-14) Blood Urea Nitrogen 13 mg/dL (8-26) Creatinine 0.9 mg/dL (0.7-1.3) Estimated GFR (Cockcroft-Gault) 104.5 Glucose Level 126 mg/dL (70-99) Calcium Level 8.9 mg/dL (8.5-10.1) Glucose (Fingerstick) 268 mg/dL (70-99) 161 mg/dL (70-99) 253 mg/dL (70-99) Test 07/11/18 07:13 Glucose (Fingerstick) 131 mg/dL (70-99) Microbiology 07/05/18 Blood Culture - Preliminary, Resulted 07/05/18 Blood Culture Result 1 (TIM) - Preliminary, Resulted Medications Current Medications Albuterol/ Ipratropium (Duoneb) 3 ml 1X ONCE NEB Last administered on 07/04/18at 16:30; Start 07/04/18 at 16:30; Stop 07/04/18 at 16:31; Status DC Methylprednisolone Sodium Succinate (SOLU-Medrol 125MG VIAL) 125 mg 1X ONCE IV Last administered on 07/04/18at 16:55; Start 07/04/18 at 16:30; Stop 07/04/18 at 16:31; Status DC Acetaminophen/ Hydrocodone Bitart (Lortab 5/325) 2 tab 1X ONCE PO Last administered on 07/04/18at 16:54; Start 07/04/18 at 16:30; Stop 07/04/18 at 16:31; Status DC Albuterol/ Ipratropium (Duoneb) 3 ml RTQID NEB Last administered on 07/11/18at 06:35; Start 07/04/18 at 20:00 Guaifenesin (Robitussin Dm) 10 ml PRN Q6HRS PRN PO COUGH; Start 07/04/18 at 17:00 Acetaminophen (Tylenol) 650 mg PRN Q4HRS PRN PO TEMP OVER 100.4F OR MILD PAIN; Start 07/04/18 at 17:00; Status UNV Atorvastatin Calcium (Lipitor) 10 mg HS PO Last administered on 07/10/18at 21 :57; Start 07/04/18 at 21:00 Furosemide (Lasix) 40 mg DAILY PO Last administered on 07/10/18at 08:32; Start 07/05/18 at 09:00 Lorazepam (Ativan) 1 mg BID PO Last administered on 07/10/18 21:57; Start 07/04/18 at 21:00 Metoclopramide HCl (Reglan) 5 mg QIDACHS PO Last administered on 07/10/18 21:57; Start 07/04/18 at 18:00 Tramadol HCl (Ultram) 50 mg PRN Q6HRS PRN PO PAIN Last administered on 07/11/18 04:04; Start 07/04/18 at 17:00 Vitamin D (Vitamin D3) 5,000 unit DAILY PO Last administered on 07/10/18 08:31; Start 07/05/18 at 09:00 Fluticasone Propionate (Flonase) 2 spray DAILY NS Last administered on 07/09/18 09:17; Start 07/05/18 at 09:00 Pantoprazole Sodium (Protonix) 40 mg DAILYAC PO Last administered on 07/10/18 08:32; Start 07/05/18 at 07:30 Potassium Chloride (Klor-Con) 20 meq DAILYWBKFT PO Last administered on 07/10/18 08:31; Start 07/05/18 at 08:00 Prednisone (Prednisone) 60 mg DAILY PO Last administered on 07/08/18 08:28; Start 07/05/18 at 09:00; Stop 07/08/18 at 16:15; Status DC Temazepam (Restoril) 7.5 mg PRN QHS PRN PO INSOMNIA Last administered on 07/10/18 21:57; Start 07/04/18 at 17:15 Lidocaine (Lidoderm) 1 patch DAILY TD Last administered on 07/10/18 08:37; Start 07/05/18 at 09:00 Rivaroxaban (Xarelto) 15 mg BIDWMEALS PO Last administered on 07/08/18 08:29; Start 07/04/18 at 21:00; Stop 07/08/18 at 16:58; Status DC Sodium Chloride 1,000 ml @ 1,000 mls/hr 1X ONCE IV Last administered on 07/04/18 18:35; Start 07/04/18 at 17:15; Stop 07/04/18 at 18:14; Status DC Sodium Chloride 1,000 ml @ 1,000 mls/hr 1X ONCE IV Last administered on 07/04/18 20:05; Start 07/04/18 at 17:15; Stop 07/04/18 at 18:14; Status DC Ceftriaxone Sodium (Rocephin) 1 gm 1X ONCE IVP Last administered on 07/04/18at 20:21; Start 07/04/18 at 17:15; Stop 07/04/18 at 17:23; Status DC Ondansetron HCl (Zofran) 4 mg PRN Q8HRS PRN IV NAUSEA/VOMITING; Start 07/04/18 at 18:30; Stop 07/05/18 at 18:29; Status DC Morphine Sulfate (Morphine Sulfate) 2 mg PRN Q2HR PRN IV PAIN; Start 07/04/18 at 18:30; Stop 07/05/18 at 18:29; Status DC Acetaminophen (Tylenol) 650 mg PRN Q4HRS PRN PO FEVER; Start 07/04/18 at 18:30; Stop 07/05/18 at 18:29; Status DC Albuterol/ Ipratropium (Duoneb) 3 ml RTQID NEB ; Start 07/04/18 at 20:00; Stop 07/05/18 at 19:59; Status UNV Info (Anti-Coagulation Monitoring By Pharmacy) 1 each PRN DAILY PRN MC SEE COMMENTS Last administered on 07/05/18at 09:41; Start 07/04/18 at 20:45 Doxycycline Hyclate (Vibra-Tab) 100 mg BID PO Last administered on 07/10/18 21:57; Start 07/05/18 at 21:00 Docusate Sodium (Colace) 100 mg BID PO Last administered on 07/10/18at 08:31; Start 07/06/18 at 12:00 Fluticasone Propionate (Flonase) 2 spray DAILY NS ; Start 07/07/18 at 09:00; Status UNV Lactobacillus Rhamnosus (Culturelle) 1 cap BID PO Last administered on 07/08/18 08:29; Start 07/07/18 at 21:00; Stop 07/08/18 at 12:57; Status DC Ceftriaxone Sodium (Rocephin) 1 gm Q24H IVP Last administered on 07/10/18at 14:38; Start 07/07/18 at 14:00 Dextrose (Dextrose 50%-Water Syringe) 12.5 gm PRN Q15MIN PRN IV SEE COMMENTS; Start 07/07/18 at 17:30; Status UNV Insulin Human Lispro (HumaLOG) 0-7 UNITS QIDACHS SQ ; Start 07/07/18 at 17:30; Stop 07/07/18 at 17:53; Status DC Dextrose (Dextrose 50%-Water Syringe) 12.5 gm PRN Q15MIN PRN IV SEE COMMENTS; Start 07/07/18 at 17:30 Insulin Human Lispro (HumaLOG) 0-5 UNITS TIDWMEALS SQ Last administered on 07/08/18at 12:15; Start 07/07/18 at 18:00; Stop 07/08/18 at 16:55; Status DC Dextrose (Dextrose 50%-Water Syringe) 12.5 gm PRN Q15MIN PRN IV SEE COMMENTS; Start 07/07/18 at 18:00; Status UNV Prednisone (Prednisone) 20 mg DAILY PO Last administered on 07/10/18at 08:31; Start 07/09/18 at 09:00 Insulin Human Lispro (HumaLOG) 0-7 UNITS QIDACHS SQ Last administered on 07/10/18at 22:02; Start 07/08/18 at 21:00 Dextrose (Dextrose 50%-Water Syringe) 12.5 gm PRN Q15MIN PRN IV SEE COMMENTS; Start 07/08/18 at 17:00; Status UNV Info (Hold Preop Anti-Coag Meds) 1 ea CONT PRN PRN MC SEE COMMENTS; Start 07/08/18 at 17:00 Insulin Human Lispro (HumaLOG) 8 units 1X ONCE SQ Last administered on 07/08/18at 17:31; Start 07/08/18 at 17:00; Stop 07/08/18 at 17:02; Status DC Lactobacillus Rhamnosus (Culturelle) 1 cap BID PO ; Start 07/09/18 at 21:00; Status Cancel Enoxaparin Sodium (Lovenox 80mg Syringe) 80 mg Q12HR SQ Last administered on 07/09/18at 21:16; Start 07/09/18 at 13:00 Albuterol Sulfate (Ventolin Neb Soln) 2.5 mg PRN Q4HRS PRN NEB SHORTNESS OF BREATH Last administered on 07/10/18at 02:50; Start 07/09/18 at 14:15 Active Scripts Active Augmentin 875-125 Tablet (Amoxicillin/Potassium Clav) 1 Each Tablet 1 Tab PO BID Tramadol Hcl 50 Mg Tablet 50 Mg PO Q6HRS PRN Prednisone (Prednisone) 10 Mg Tablet 10 Mg PO UD Take 3 tablets by mouth twice a day for 3 days, then take 2 tablets by mouth twice a day for 3 days, then take 1 tablet by mouth twice a day for 3 days, then take 1 tablet by mouth daily x 3 days, then stop. Ativan (Lorazepam) 1 Mg Tablet 1 Mg PO BID Guaifenesin 100 Mg/5 Ml Liquid 200 Mg PO PRN Q4HRS PRN 30 Days Tylenol (Acetaminophen) 325 Mg Tablet 650 Mg PO PRN Q4HRS PRN 10 Days Ventolin Hfa Inhaler (Albuterol Sulfate) 18 Gm Hfa.aer.ad 2 Puff INH Q4HRS Reglan (Metoclopramide Hcl) 10 Mg Tablet 0.5 Tab PO QID 30 Days Albuterol Sulfate Neb Soln (Albuterol Sulfate) 2.5 Mg/3 Ml Vial.neb 1 Vial NEB PRN Q4HRS Reported Furosemide 40 Mg Tablet 1 Tab PO DAILY Vitamin D3 (Cholecalciferol (Vitamin D3)) 5,000 Unit Tablet 5,000 Unit PO DAILY Potassium Chloride 20 Meq Tablet.er 20 Meq PO DAILY Protonix (Pantoprazole Sodium) 20 Mg Tablet.dr 1 Tab PO DAILY Flonase Allergy Relief (Fluticasone Propionate) 9.9 Ml [place].susp 2 Sprays NS DAILY Atorvastatin Calcium 10 Mg Tablet 10 Mg PO HS Symbicort 160-4.5 Mcg Inhaler (Budesonide/Formoterol Fumarate) 10.2 Gm Hfa.aer.ad 2 Puff IH BID Vitals/I & O Vital Sign - Last 24 Hours 07/10/18 07/10/18 07/10/18 07/10/18 08:00 08:40 11:00 11:17 Temp 99.3 99.3 Pulse 117 Resp 12 B/P (MAP) 131/75 (93) Pulse Ox 99 88 99 O2 Delivery Nasal Cannula Nasal Cannula Nasal Cannula Nasal Cannula O2 Flow Rate 3.0 3.0 3.0 3.0 07/10/18 07/10/18 07/10/18 07/10/18 15:00 16:55 19:03 20:05 Temp 97.4 99.0 97.4 99.0 Pulse 103 110 Resp 14 18 B/P (MAP) 119/80 (93) 112/75 (87) Pulse Ox 99 98 O2 Delivery Nasal Cannula Nasal Cannula Nasal Cannula Nasal Cannula O2 Flow Rate 4.0 3.0 4.0 4.0 07/10/18 07/10/18 07/10/18 07/10/18 20:50 21:58 22:38 22:58 Temp 98.2 98.2 Pulse 111 Resp 20 B/P (MAP) 119/76 (90) Pulse Ox 97 97 O2 Delivery Nasal Cannula Nasal Cannula Nasal Cannula O2 Flow Rate 4.0 4.0 3.0 3.0 07/11/18 07/11/18 07/11/18 07/11/18 03:51 04:04 05:04 06:22 Temp 98.4 97.7 98.4 97.7 Pulse 89 101 Resp 20 20 B/P (MAP) 119/88 (98) 128/85 (99) Pulse Ox 100 100 O2 Delivery Nasal Cannula Nasal Cannula Nasal Cannula Nasal Cannula O2 Flow Rate 3.0 3.0 3.0 07/11/18 06:35 Pulse Ox 100 O2 Delivery Nasal Cannula O2 Flow Rate 3.0 Intake and Output 07/10/18 07/10/18 07/11/18 15:00 23:00 07:00 Intake Total 1000 ml 640 ml 0 ml Output Total 775 ml 650 ml 325 ml Balance 225 ml -10 ml -325 ml KIRSTIE TREVINO MD July 11, 2018 07:52
[2018-07-11 08:50] LABS: BASO % 0 % (0-3); EOS % 1 % (0-3); HEMATOCRIT 31.6 % (39.0-53.0); HEMOGLOBIN 10.7 g/dL (13.0-17.5); LYMPH # 0.3 x10^3/uL (1.0-4.8); LYMPH % 5 % (24-48); MEAN CORPUSCULAR HEMOGLOBIN 29 pg (25-35); MEAN CORPUSCULAR HGB CONC 34 g/dL (31-37); MEAN CORPUSCULAR VOLUME 87 fL (79-100); MONO # 0.2 x10^3/uL (0.0-1.1); MONO % 4 % (0-9); NEUT # 4.9 x10^3uL (1.8-7.7); NEUT % 90 % (31-73); PLATELET COUNT 128 x10^3/uL (140-400); RED BLOOD COUNT 3.64 x10^6/uL (4.30-5.70); RED CELL DISTRIBUTION WIDTH 15.6 % (11.5-14.5); WHITE BLOOD COUNT 5.4 x10^3/uL (4.0-11.0)
[2018-07-11] MEDS: FLUTICASONE 50MCG/NASAL SPRAY 16GM BOTTLE. NS SCH (09:00)
[2018-07-11 09:07] LABS: CALCIUM 9.2 mg/dL (8.5-10.1); CREATININE 0.9 mg/dL (0.7-1.3); GFR 104.5; POTASSIUM 4.1 mmol/L (3.5-5.1)
--- NOTE | 2018-07-11 09:20 | PDOC ---
PROGRESS NOTES Subjective Subjective No new complaints. Objective Objective Vital Signs Date Time Temp Pulse Resp B/P (MAP) Pulse Ox O2 Delivery O2 Flow Rate FiO2 07/11/18 08:00 Nasal Cannula 3.0 07/11/18 06:35 100 07/11/18 06:22 97.7 101 20 128/85 (99) 97.7 Intake and Output 07/11/18 06:59 Intake Total 1640 ml Output Total 1750 ml Balance -110 ml Intake Oral 1640 ml Output Urine Total 1750 ml # Voids 1 Physical Exam Physical Exam He is sitting at edge of bed and he remains independent with his mobility. Assessment Assessment Problems Medical Problems: (1) COPD with exacerbation Status: Acute (2) Hyperglycemia Status: Acute (3) Pulmonary embolism Status: Acute (4) Shortness of breath Status: Acute Plan Plan of Care He is to have mri scan of thoracic vertebrae and T9 kyphoplasty this morning. Comment Review of Relevant I have reviewed the following items franki (where applicable) has been applied. Labs Laboratory Tests Test 07/09/18 11:43 07/09/18 17:33 07/09/18 20:48 07/10/18 07:35 Glucose (Fingerstick) 269 mg/dL (70-99) 323 mg/dL (70-99) 185 mg/dL (70-99) 106 mg/dL (70-99) Test 07/10/18 08:54 07/10/18 12:00 07/10/18 17:11 07/10/18 20:58 White Blood Count 5.8 x10^3/uL (4.0-11.0) Red Blood Count 3.75 x10^6/uL (4.30-5.70) Hemoglobin 10.9 g/dL (13.0-17.5) Hematocrit 33.0 % (39.0-53.0) Mean Corpuscular Volume 88 fL (79-100) Mean Corpuscular Hemoglobin 29 pg (25-35) Mean Corpuscular Hemoglobin Concent 33 g/dL (31-37) Red Cell Distribution Width 15.8 % (11.5-14.5) Platelet Count 135 x10^3/uL (140-400) Neutrophils (%) (Auto) 90 % (31-73) Lymphocytes (%) (Auto) 5 % (24-48) Monocytes (%) (Auto) 4 % (0-9) Eosinophils (%) (Auto) 1 % (0-3) Basophils (%) (Auto) 0 % (0-3) Neutrophils # (Auto) 5.2 x10^3uL (1.8-7.7) Lymphocytes # (Auto) 0.3 x10^3/uL (1.0-4.8) Monocytes # (Auto) 0.2 x10^3/uL (0.0-1.1) Eosinophils # (Auto) 0.1 x10^3/uL (0.0-0.7) Basophils # (Auto) 0.0 x10^3/uL (0.0-0.2) Sodium Level 140 mmol/L (136-145) Potassium Level 3.8 mmol/L (3.5-5.1) Chloride Level 99 mmol/L (98-107) Carbon Dioxide Level 32 mmol/L (21-32) Anion Gap 9 (6-14) Blood Urea Nitrogen 13 mg/dL (8-26) Creatinine 0.9 mg/dL (0.7-1.3) Estimated GFR (Cockcroft-Gault) 104.5 Glucose Level 126 mg/dL (70-99) Calcium Level 8.9 mg/dL (8.5-10.1) Glucose (Fingerstick) 268 mg/dL (70-99) 161 mg/dL (70-99) 253 mg/dL (70-99) Test 07/11/18 07:13 07/11/18 08:35 Glucose (Fingerstick) 131 mg/dL (70-99) White Blood Count 5.4 x10^3/uL (4.0-11.0) Red Blood Count 3.64 x10^6/uL (4.30-5.70) Hemoglobin 10.7 g/dL (13.0-17.5) Hematocrit 31.6 % (39.0-53.0) Mean Corpuscular Volume 87 fL (79-100) Mean Corpuscular Hemoglobin 29 pg (25-35) Mean Corpuscular Hemoglobin Concent 34 g/dL (31-37) Red Cell Distribution Width 15.6 % (11.5-14.5) Platelet Count 128 x10^3/uL (140-400) Neutrophils (%) (Auto) 90 % (31-73) Lymphocytes (%) (Auto) 5 % (24-48) Monocytes (%) (Auto) 4 % (0-9) Eosinophils (%) (Auto) 1 % (0-3) Basophils (%) (Auto) 0 % (0-3) Neutrophils # (Auto) 4.9 x10^3uL (1.8-7.7) Lymphocytes # (Auto) 0.3 x10^3/uL (1.0-4.8) Monocytes # (Auto) 0.2 x10^3/uL (0.0-1.1) Eosinophils # (Auto) 0.0 x10^3/uL (0.0-0.7) Basophils # (Auto) 0.0 x10^3/uL (0.0-0.2) Sodium Level 143 mmol/L (136-145) Potassium Level 4.1 mmol/L (3.5-5.1) Chloride Level 101 mmol/L (98-107) Carbon Dioxide Level 37 mmol/L (21-32) Anion Gap 5 (6-14) Blood Urea Nitrogen 13 mg/dL (8-26) Creatinine 0.9 mg/dL (0.7-1.3) Estimated GFR (Cockcroft-Gault) 104.5 Glucose Level 130 mg/dL (70-99) Calcium Level 9.2 mg/dL (8.5-10.1) Laboratory Tests Test 07/10/18 12:00 07/10/18 17:11 07/10/18 20:58 07/11/18 07:13 Glucose (Fingerstick) 268 mg/dL (70-99) 161 mg/dL (70-99) 253 mg/dL (70-99) 131 mg/dL (70-99) Test 07/11/18 08:35 White Blood Count 5.4 x10^3/uL (4.0-11.0) Red Blood Count 3.64 x10^6/uL (4.30-5.70) Hemoglobin 10.7 g/dL (13.0-17.5) Hematocrit 31.6 % (39.0-53.0) Mean Corpuscular Volume 87 fL (79-100) Mean Corpuscular Hemoglobin 29 pg (25-35) Mean Corpuscular Hemoglobin Concent 34 g/dL (31-37) Red Cell Distribution Width 15.6 % (11.5-14.5) Platelet Count 128 x10^3/uL (140-400) Neutrophils (%) (Auto) 90 % (31-73) Lymphocytes (%) (Auto) 5 % (24-48) Monocytes (%) (Auto) 4 % (0-9) Eosinophils (%) (Auto) 1 % (0-3) Basophils (%) (Auto) 0 % (0-3) Neutrophils # (Auto) 4.9 x10^3uL (1.8-7.7) Lymphocytes # (Auto) 0.3 x10^3/uL (1.0-4.8) Monocytes # (Auto) 0.2 x10^3/uL (0.0-1.1) Eosinophils # (Auto) 0.0 x10^3/uL (0.0-0.7) Basophils # (Auto) 0.0 x10^3/uL (0.0-0.2) Sodium Level 143 mmol/L (136-145) Potassium Level 4.1 mmol/L (3.5-5.1) Chloride Level 101 mmol/L (98-107) Carbon Dioxide Level 37 mmol/L (21-32) Anion Gap 5 (6-14) Blood Urea Nitrogen 13 mg/dL (8-26) Creatinine 0.9 mg/dL (0.7-1.3) Estimated GFR (Cockcroft-Gault) 104.5 Glucose Level 130 mg/dL (70-99) Calcium Level 9.2 mg/dL (8.5-10.1) Microbiology 07/05/18 Blood Culture - Preliminary, Resulted 07/05/18 Blood Culture Result 1 (TIM) - Preliminary, Resulted Medications Current Medications Albuterol/ Ipratropium (Duoneb) 3 ml 1X ONCE NEB Last administered on 07/04/18at 16:30; Start 07/04/18 at 16:30; Stop 07/04/18 at 16:31; Status DC Methylprednisolone Sodium Succinate (SOLU-Medrol 125MG VIAL) 125 mg 1X ONCE IV Last administered on 07/04/18at 16:55; Start 07/04/18 at 16:30; Stop 07/04/18 at 16:31; Status DC Acetaminophen/ Hydrocodone Bitart (Lortab 5/325) 2 tab 1X ONCE PO Last administered on 07/04/18 16:54; Start 07/04/18 at 16:30; Stop 07/04/18 at 16:31; Status DC Albuterol/ Ipratropium (Duoneb) 3 ml RTQID NEB Last administered on 07/11/18 06:35; Start 07/04/18 at 20:00 Guaifenesin (Robitussin Dm) 10 ml PRN Q6HRS PRN PO COUGH; Start 07/04/18 at 17:00 Acetaminophen (Tylenol) 650 mg PRN Q4HRS PRN PO TEMP OVER 100.4F OR MILD PAIN; Start 07/04/18 at 17:00; Status UNV Atorvastatin Calcium (Lipitor) 10 mg HS PO Last administered on 07/10/18 21:57; Start 07/04/18 at 21:00 Furosemide (Lasix) 40 mg DAILY PO Last administered on 07/10/18 08:32; Start 07/05/18 at 09:00 Lorazepam (Ativan) 1 mg BID PO Last administered on 07/10/18 21:57; Start 07/04/18 at 21:00 Metoclopramide HCl (Reglan) 5 mg QIDACHS PO Last administered on 07/10/18 21:57; Start 07/04/18 at 18:00 Tramadol HCl (Ultram) 50 mg PRN Q6HRS PRN PO PAIN Last administered on 07/11/18 04:04; Start 07/04/18 at 17:00 Vitamin D (Vitamin D3) 5,000 unit DAILY PO Last administered on 07/10/18 08:31; Start 07/05/18 at 09:00 Fluticasone Propionate (Flonase) 2 spray DAILY NS Last administered on 07/09/18 09:17; Start 07/05/18 at 09:00 Pantoprazole Sodium (Protonix) 40 mg DAILYAC PO Last administered on 07/10/18 08:32; Start 07/05/18 at 07:30 Potassium Chloride (Klor-Con) 20 meq DAILYWBKFT PO Last administered on 07/10/18 08:31; Start 07/05/18 at 08:00 Prednisone (Prednisone) 60 mg DAILY PO Last administered on 5/27/19at 08:28; Start 07/05/18 at 09:00; Stop 07/08/18 at 16:15; Status DC Temazepam (Restoril) 7.5 mg PRN QHS PRN PO INSOMNIA Last administered on 07/10/18 21:57; Start 07/04/18 at 17:15 Lidocaine (Lidoderm) 1 patch DAILY TD Last administered on 07/10/18 08:37; Start 07/05/18 at 09:00 Rivaroxaban (Xarelto) 15 mg BIDWMEALS PO Last administered on 07/08/18 08:29; Start 07/04/18 at 21:00; Stop 07/08/18 at 16:58; Status DC Sodium Chloride 1,000 ml @ 1,000 mls/hr 1X ONCE IV Last administered on at 18:35; Start 07/04/18 at 17:15; Stop 07/04/18 at 18:14; Status DC Sodium Chloride 1,000 ml @ 1,000 mls/hr 1X ONCE IV Last administered on 07/04/18at 20:05; Start 07/04/18 at 17:15; Stop 07/04/18 at 18:14; Status DC Ceftriaxone Sodium (Rocephin) 1 gm 1X ONCE IVP Last administered on 07/04/18at 20:21; Start 07/04/18 at 17:15; Stop 07/04/18 at 17:23; Status DC Ondansetron HCl (Zofran) 4 mg PRN Q8HRS PRN IV NAUSEA/VOMITING; Start 07/04/18 at 18:30; Stop 07/05/18 at 18:29; Status DC Morphine Sulfate (Morphine Sulfate) 2 mg PRN Q2HR PRN IV PAIN; Start 07/04/18 at 18:30; Stop 07/05/18 at 18:29; Status DC Acetaminophen (Tylenol) 650 mg PRN Q4HRS PRN PO FEVER; Start 07/04/18 at 18:30; Stop 07/05/18 at 18:29; Status DC Albuterol/ Ipratropium (Duoneb) 3 ml RTQID NEB ; Start 07/04/18 at 20:00; Stop 07/05/18 at 19:59; Status UNV Info (Anti-Coagulation Monitoring By Pharmacy) 1 each PRN DAILY PRN MC SEE COMMENTS Last administered on 07/05/18at 09:41; Start 07/04/18 at 20:45 Doxycycline Hyclate (Vibra-Tab) 100 mg BID PO Last administered on 07/10/18at 21:57; Start 07/05/18 at 21:00 Docusate Sodium (Colace) 100 mg BID PO Last administered on 07/10/18at 08:31; Start 07/06/18 at 12:00 Fluticasone Propionate (Flonase) 2 spray DAILY NS ; Start 07/07/18 at 09:00; Status UNV Lactobacillus Rhamnosus (Culturelle) 1 cap BID PO Last administered on 07/08/18at 08:29; Start 07/07/18 at 21:00; Stop 07/08/18 at 12:57; Status DC Ceftriaxone Sodium (Rocephin) 1 gm Q24H IVP Last administered on 07/10/18at 14:38; Start 07/07/18 at 14:00 Dextrose (Dextrose 50%-Water Syringe) 12.5 gm PRN Q15MIN PRN IV SEE COMMENTS; Start 07/07/18 at 17:30; Status UNV Insulin Human Lispro (HumaLOG) 0-7 UNITS QIDACHS SQ ; Start 07/07/18 at 17:30; Stop 07/07/18 at 17:53; Status DC Dextrose (Dextrose 50%-Water Syringe) 12.5 gm PRN Q15MIN PRN IV SEE COMMENTS; Start 07/07/18 at 17:30 Insulin Human Lispro (HumaLOG) 0-5 UNITS TIDWMEALS SQ Last administered on 07/08/18at 12:15; Start 07/07/18 at 18:00; Stop 07/08/18 at 16:55; Status DC Dextrose (Dextrose 50%-Water Syringe) 12.5 gm PRN Q15MIN PRN IV SEE COMMENTS; Start 07/07/18 at 18:00; Status UNV Prednisone (Prednisone) 20 mg DAILY PO Last administered on 07/10/18at 08:31; Start 07/09/18 at 09:00 Insulin Human Lispro (HumaLOG) 0-7 UNITS QIDACHS SQ Last administered on 07/10/18at 22:02; Start 07/08/18 at 21:00 Dextrose (Dextrose 50%-Water Syringe) 12.5 gm PRN Q15MIN PRN IV SEE COMMENTS; Start 07/08/18 at 17:00; Status UNV Info (Hold Preop Anti-Coag Meds) 1 ea CONT PRN PRN MC SEE COMMENTS; Start 07/08/18 at 17:00 Insulin Human Lispro (HumaLOG) 8 units 1X ONCE SQ Last administered on 07/08/18at 17:31; Start 07/08/18 at 17:00; Stop 07/08/18 at 17:02; Status DC Lactobacillus Rhamnosus (Culturelle) 1 cap BID PO ; Start 07/09/18 at 21:00; Status Cancel Enoxaparin Sodium (Lovenox 80mg Syringe) 80 mg Q12HR SQ Last administered on 07/09/18at 21:16; Start 07/09/18 at 13:00 Albuterol Sulfate (Ventolin Neb Soln) 2.5 mg PRN Q4HRS PRN NEB SHORTNESS OF BREATH Last administered on 07/10/18at 02:50; Start 07/09/18 at 14:15 Active Scripts Active Augmentin 235125 Tablet (Amoxicillin/Potassium Clav) 1 Each Tablet 1 Tab PO BID Tramadol Hcl 50 Mg Tablet 50 Mg PO Q6HRS PRN Prednisone (Prednisone) 10 Mg Tablet 10 Mg PO UD Take 3 tablets by mouth twice a day for 3 days, then take 2 tablets by mouth twice a day for 3 days, then take 1 tablet by mouth twice a day for 3 days, then take 1 tablet by mouth daily x 3 days, then stop. Ativan (Lorazepam) 1 Mg Tablet 1 Mg PO BID Guaifenesin 100 Mg/5 Ml Liquid 200 Mg PO PRN Q4HRS PRN 30 Days Tylenol (Acetaminophen) 325 Mg Tablet 650 Mg PO PRN Q4HRS PRN 10 Days Ventolin Hfa Inhaler (Albuterol Sulfate) 18 Gm Hfa.aer.ad 2 Puff INH Q4HRS Reglan (Metoclopramide Hcl) 10 Mg Tablet 0.5 Tab PO QID 30 Days Albuterol Sulfate Neb Soln (Albuterol Sulfate) 2.5 Mg/3 Ml Vial.neb 1 Vial NEB PRN Q4HRS Reported Furosemide 40 Mg Tablet 1 Tab PO DAILY Vitamin D3 (Cholecalciferol (Vitamin D3)) 5,000 Unit Tablet 5,000 Unit PO DAILY Potassium Chloride 20 Meq Tablet.er 20 Meq PO DAILY Protonix (Pantoprazole Sodium) 20 Mg Tablet.dr 1 Tab PO DAILY Flonase Allergy Relief (Fluticasone Propionate) 9.9 Ml [place].susp 2 Sprays NS DAILY Atorvastatin Calcium 10 Mg Tablet 10 Mg PO HS Symbicort 160-4.5 Mcg Inhaler (Budesonide/Formoterol Fumarate) 10.2 Gm Hfa.aer.ad 2 Puff IH BID Vitals/I & O Vital Sign - Last 24 Hours 07/10/18 07/10/18 07/10/18 07/10/18 11:00 11:17 15:00 16:55 Temp 99.3 97.4 99.3 97.4 Pulse 117 103 Resp 12 14 B/P (MAP) 131/75 (93) 119/80 (93) Pulse Ox 88 99 99 O2 Delivery Nasal Cannula Nasal Cannula Nasal Cannula Nasal Cannula O2 Flow Rate 3.0 3.0 4.0 3.0 07/10/18 07/10/18 07/10/18 07/10/18 19:03 20:05 20:50 21:58 Temp 99.0 99.0 Pulse 110 Resp 18 B/P (MAP) 112/75 (87) Pulse Ox 98 O2 Delivery Nasal Cannula Nasal Cannula Nasal Cannula Nasal Cannula O2 Flow Rate 4.0 4.0 4.0 4.0 07/10/18 07/10/18 07/11/18 07/11/18 22:38 22:58 03:51 04:04 Temp 98.2 98.4 98.2 98.4 Pulse 111 89 Resp 20 20 B/P (MAP) 119/76 (90) 119/88 (98) Pulse Ox 97 97 100 O2 Delivery Nasal Cannula Nasal Cannula Nasal Cannula O2 Flow Rate 3.0 3.0 3.0 3.0 07/11/18 07/11/18 07/11/18 07/11/18 05:04 06:22 06:35 08:00 Temp 97.7 97.7 Pulse 101 Resp 20 B/P (MAP) 128/85 (99) Pulse Ox 100 100 O2 Delivery Nasal Cannula Nasal Cannula Nasal Cannula Nasal Cannula O2 Flow Rate 3.0 3.0 3.0 Intake and Output 07/10/18 07/10/18 07/11/18 14:59 22:59 06:59 Intake Total 1000 ml 640 ml 0 ml Output Total 775 ml 650 ml 325 ml Balance 225 ml -10 ml -325 ml SHELLY GOOD MD July 11, 2018 09:20
--- NOTE | 2018-07-11 10:38 | RAD ---
MRI Thoracic Spine without contrast History: Compression fracture, pain Technique: Multiplanar, multi sequential noncontrast MR imaging was performed of the thoracic spine. No axial images could be obtained due to claustrophobia and patient's pain Comparison: July 06, 2018 CT thoracic spine exam Findings: There is motion degradation. Exam is also somewhat limited without any axial images available. Numbering is based on counting from above. There is more recent superior T9 compression deformity with associated marrow edema signified by STIR hyperintense and T1 hypointense signal, no significant osseous retropulsion. There is degree of superior T12 endplate concavity although not associated with significant STIR hyperintense signal, somewhat limited evaluation due to location at the inferior aspect of exam. There is also mild old superior T6 compression deformity. Thoracic cord caliber is within normal limits without expansile signal change, cannot accurately evaluate for more subtle signal change on this motion degraded exam. Thoracic vertebral body AP alignment is maintained. Thoracic intervertebral disc spaces are relatively preserved, multilevel mild disc desiccation. There is no significant thoracic spinal stenosis. There is negligible protrusion/bulge at T9-10. There is somewhat diffuse narrowing of the thoracic spinal canal on a developmental basis. There is minimal disc osteophyte complex posteriorly at T5-T6. Facet degenerative change contributes to likely ytzq-ne-svajerso narrowing of the left T8-9 neural foramen. There is cervical degenerative disc disease greatest C4-5 and C6-7. Impression: 1. There is more recent superior T9 compression fracture without osseous retropulsion. There is old superior T6 and T12 compression deformity. Electronically signed by: Nehemias Kingsley MD (07/11/2018 10:35 AM) [id number]
[2018-07-11 11:00] VITALS: BP 139/81
[2018-07-11] MEDS: ANTI-COAG MONITOR BY PHARMACY. MC PRN (11:14)
[2018-07-11] MEDS ORDERED: IOHEXOL 240 MG/ML 50ML VIAL. ONE (13:06)
[2018-07-11] MEDS ORDERED: LIDOCAINE WITH 8.4% SOD BICARB 3 ML DISP.SYRIN. ONE (13:06)
[2018-07-11] MEDS ORDERED: MIDAZOLAM HCL/PF 5 MG/5 ML VIAL. ONE (13:07)
[2018-07-11] MEDS ORDERED: fentaNYL PF VIAL 250 MCG/5 ML VIAL ONE (13:08)
[2018-07-11] MEDS ORDERED: fentaNYL PF VIAL 250 MCG/5 ML VIAL IV ONE (13:45)
--- NOTE | 2018-07-11 13:49 | NUR ---
After attempting to lie prone, pt became very dyspneic and \o2 sat dropped. \returned to bed without incident. O2 sat and breathing pattern eventually returned to normal.
[2018-07-11] MEDS: DOCUSATE SODIUM 100 MG CAPSULE. PO SCH ×2 (14:18→21:50)
[2018-07-11] MEDS: PANTOPRAZOLE 40 MG TABLET.DR. PO SCH (14:18)
[2018-07-11] MEDS: FUROSEMIDE 40 MG TABLET. PO SCH (14:19)
[2018-07-11] MEDS: POTASSIUM CHLORIDE 20 MEQ TABLET.ER. PO SCH (14:19)
[2018-07-11] MEDS: DOXYCYCLINE HYCLATE 100 MG TABLET PO SCH ×2 (14:19→21:50)
[2018-07-11] MEDS: CHOLECALCIFEROL (VITAMIN D3) 5,000 UNIT CAPSULE PO SCH (14:19)
[2018-07-11] MEDS: LORazepam 1 MG TABLET PO SCH ×2 (14:19→21:49)
[2018-07-11] MEDS: predniSONE 20 MG TABLET PO SCH (14:19)
[2018-07-11] MEDS: LIDOCAINE (700MG/PATCH) PATCH. TD SCH (14:20)
[2018-07-11] MEDS: cefTRIAXone IV Push 1 GM VIAL. IVP SCH (14:24)
[2018-07-11 15:00] VITALS: BP 104/64
[2018-07-11] MEDS ORDERED: fentaNYL 25MCG/HR PATCH 1 PATCH PATCH.TD72 TD SCH (15:15)
[2018-07-11] MEDS: ALBUTEROL SULFATE 2.5 MG/3 ML NEBU. NEB PRN (18:28)
[2018-07-11 19:28] VITALS: BP 112/66
[2018-07-11] MEDS ORDERED: IBUPROFEN 200 MG TABLET. PO PRN (19:30)
[2018-07-11] MEDS: TEMAZEPAM 7.5 MG CAPSULE PO PRN ×2 (21:49→22:02)
[2018-07-11] MEDS: ATORVASTATIN CALCIUM 10 MG TABLET. PO SCH (21:50)
[2018-07-11 22:47] VITALS: BP 133/63
--- NOTE | 2018-07-11 23:47 | PDOC ---
PULMONARY PROGRESS NOTES Subjective became hypoxic on the table prior to kyphoplasty procedure cancelled Vitals Vital Signs Date Time Temp Pulse Resp B/P (MAP) Pulse Ox O2 Delivery O2 Flow Rate FiO2 07/11/18 23:02 96 Nasal Cannula 4.0 07/11/18 22:47 100.6 124 22 133/63 (86) 100.6 ROS: No Nausea General: Alert, No acute distress Lungs: Other (poor air flow) Cardiovascular: S1, S2 Abdomen: Soft, Non-tender Neuro Exam: Alert Extremities: No Edema, Other Skin: Warm Labs Laboratory Tests Test 07/10/18 07:35 07/10/18 08:54 07/10/18 12:00 07/10/18 17:11 Glucose (Fingerstick) 106 mg/dL (70-99) 268 mg/dL (70-99) 161 mg/dL (70-99) White Blood Count 5.8 x10^3/uL (4.0-11.0) Red Blood Count 3.75 x10^6/uL (4.30-5.70) Hemoglobin 10.9 g/dL (13.0-17.5) Hematocrit 33.0 % (39.0-53.0) Mean Corpuscular Volume 88 fL (79-100) Mean Corpuscular Hemoglobin 29 pg (25-35) Mean Corpuscular Hemoglobin Concent 33 g/dL (31-37) Red Cell Distribution Width 15.8 % (11.5-14.5) Platelet Count 135 x10^3/uL (140-400) Neutrophils (%) (Auto) 90 % (31-73) Lymphocytes (%) (Auto) 5 % (24-48) Monocytes (%) (Auto) 4 % (0-9) Eosinophils (%) (Auto) 1 % (0-3) Basophils (%) (Auto) 0 % (0-3) Neutrophils # (Auto) 5.2 x10^3uL (1.8-7.7) Lymphocytes # (Auto) 0.3 x10^3/uL (1.0-4.8) Monocytes # (Auto) 0.2 x10^3/uL (0.0-1.1) Eosinophils # (Auto) 0.1 x10^3/uL (0.0-0.7) Basophils # (Auto) 0.0 x10^3/uL (0.0-0.2) Sodium Level 140 mmol/L (136-145) Potassium Level 3.8 mmol/L (3.5-5.1) Chloride Level 99 mmol/L (98-107) Carbon Dioxide Level 32 mmol/L (21-32) Anion Gap 9 (6-14) Blood Urea Nitrogen 13 mg/dL (8-26) Creatinine 0.9 mg/dL (0.7-1.3) Estimated GFR (Cockcroft-Gault) 104.5 Glucose Level 126 mg/dL (70-99) Calcium Level 8.9 mg/dL (8.5-10.1) Test 07/10/18 20:58 07/11/18 07:13 07/11/18 08:35 07/11/18 11:59 Glucose (Fingerstick) 253 mg/dL (70-99) 131 mg/dL (70-99) 115 mg/dL (70-99) White Blood Count 5.4 x10^3/uL (4.0-11.0) Red Blood Count 3.64 x10^6/uL (4.30-5.70) Hemoglobin 10.7 g/dL (13.0-17.5) Hematocrit 31.6 % (39.0-53.0) Mean Corpuscular Volume 87 fL (79-100) Mean Corpuscular Hemoglobin 29 pg (25-35) Mean Corpuscular Hemoglobin Concent 34 g/dL (31-37) Red Cell Distribution Width 15.6 % (11.5-14.5) Platelet Count 128 x10^3/uL (140-400) Neutrophils (%) (Auto) 90 % (31-73) Lymphocytes (%) (Auto) 5 % (24-48) Monocytes (%) (Auto) 4 % (0-9) Eosinophils (%) (Auto) 1 % (0-3) Basophils (%) (Auto) 0 % (0-3) Neutrophils # (Auto) 4.9 x10^3uL (1.8-7.7) Lymphocytes # (Auto) 0.3 x10^3/uL (1.0-4.8) Monocytes # (Auto) 0.2 x10^3/uL (0.0-1.1) Eosinophils # (Auto) 0.0 x10^3/uL (0.0-0.7) Basophils # (Auto) 0.0 x10^3/uL (0.0-0.2) Sodium Level 143 mmol/L (136-145) Potassium Level 4.1 mmol/L (3.5-5.1) Chloride Level 101 mmol/L (98-107) Carbon Dioxide Level 37 mmol/L (21-32) Anion Gap 5 (6-14) Blood Urea Nitrogen 13 mg/dL (8-26) Creatinine 0.9 mg/dL (0.7-1.3) Estimated GFR (Cockcroft-Gault) 104.5 Glucose Level 130 mg/dL (70-99) Calcium Level 9.2 mg/dL (8.5-10.1) Test 07/11/18 17:13 07/11/18 20:58 Glucose (Fingerstick) 187 mg/dL (70-99) 248 mg/dL (70-99) Laboratory Tests Test 07/11/18 07:13 07/11/18 08:35 07/11/18 11:59 07/11/18 17:13 Glucose (Fingerstick) 131 mg/dL (70-99) 115 mg/dL (70-99) 187 mg/dL (70-99) White Blood Count 5.4 x10^3/uL (4.0-11.0) Red Blood Count 3.64 x10^6/uL (4.30-5.70) Hemoglobin 10.7 g/dL (13.0-17.5) Hematocrit 31.6 % (39.0-53.0) Mean Corpuscular Volume 87 fL (79-100) Mean Corpuscular Hemoglobin 29 pg (25-35) Mean Corpuscular Hemoglobin Concent 34 g/dL (31-37) Red Cell Distribution Width 15.6 % (11.5-14.5) Platelet Count 128 x10^3/uL (140-400) Neutrophils (%) (Auto) 90 % (31-73) Lymphocytes (%) (Auto) 5 % (24-48) Monocytes (%) (Auto) 4 % (0-9) Eosinophils (%) (Auto) 1 % (0-3) Basophils (%) (Auto) 0 % (0-3) Neutrophils # (Auto) 4.9 x10^3uL (1.8-7.7) Lymphocytes # (Auto) 0.3 x10^3/uL (1.0-4.8) Monocytes # (Auto) 0.2 x10^3/uL (0.0-1.1) Eosinophils # (Auto) 0.0 x10^3/uL (0.0-0.7) Basophils # (Auto) 0.0 x10^3/uL (0.0-0.2) Sodium Level 143 mmol/L (136-145) Potassium Level 4.1 mmol/L (3.5-5.1) Chloride Level 101 mmol/L (98-107) Carbon Dioxide Level 37 mmol/L (21-32) Anion Gap 5 (6-14) Blood Urea Nitrogen 13 mg/dL (8-26) Creatinine 0.9 mg/dL (0.7-1.3) Estimated GFR (Cockcroft-Gault) 104.5 Glucose Level 130 mg/dL (70-99) Calcium Level 9.2 mg/dL (8.5-10.1) Test 07/11/18 20:58 Glucose (Fingerstick) 248 mg/dL (70-99) Medications Active Scripts Medications Dose Route/Sig Max Daily Dose Days Date Category Dose Instructions Augmentin 875-125 Tablet (Amoxicillin/Potassium Clav) 1 Each Tablet 1 Tab PO BID 06/25/18 Rx Tramadol Hcl 50 Mg Tablet 50 Mg PO Q6HRS PRN 06/25/18 Rx Prednisone (Prednisone) 10 Mg Tablet 10 Mg PO UD 06/25/18 Rx Take 3 tablets by mouth twice a day for 3 days, then take 2 tablets by mouth twice a day for 3 days, then take 1 tablet by mouth twice a day for 3 days, then take 1 tablet by mouth daily x 3 days, then stop. Furosemide 40 Mg Tablet 1 Tab PO DAILY 06/20/18 Reported Ativan (Lorazepam) 1 Mg Tablet 1 Mg PO BID 06/15/18 Rx Guaifenesin 100 Mg/5 Ml Liquid 200 Mg PO PRN Q4HRS PRN 30 05/30/18 Rx Tylenol (Acetaminophen) 325 Mg Tablet 650 Mg PO PRN Q4HRS PRN 10 05/30/18 Rx Ventolin Hfa Inhaler (Albuterol Sulfate) 18 Gm Hfa.aer.ad 2 Puff INH Q4HRS 05/10/18 Rx Vitamin D3 (Cholecalciferol (Vitamin D3)) 5,000 Unit Tablet 5,000 Unit PO DAILY 03/15/18 Reported Reglan (Metoclopramide Hcl) 10 Mg Tablet 0.5 Tab PO QID 30 02/14/18 Rx Potassium Chloride 20 Meq Tablet.er 20 Meq PO DAILY 01/13/18 Reported Protonix (Pantoprazole Sodium) 20 Mg Tablet.dr 1 Tab PO DAILY 11/18/17 Reported Flonase Allergy Relief (Fluticasone Propionate) 9.9 Ml [place].susp 2 Sprays NS DAILY 11/18/17 Reported Atorvastatin Calcium 10 Mg Tablet 10 Mg PO HS 08/21/17 Reported Albuterol Sulfate Neb Soln (Albuterol Sulfate) 2.5 Mg/3 Ml Vial.neb 1 Vial NEB PRN Q4HRS 07/10/17 Rx Symbicort 160-4.5 Mcg Inhaler (Budesonide/Formoterol Fumarate) 10.2 Gm Hfa.aer.ad 2 Puff IH BID 09/21/15 Reported Comments reviewed, 05/30/18 ct 1. Severe emphysema with a prominent bullous component on the left. 2. Chronic pleural/parenchymal scarring. 3. New small spiculated opacity in the right lower lobe which may be inflammatory or neoplastic. CT follow-up is suggested. Impression . IMPRESSION: 1. Hollu-mz-wahmncd hypoxemic hypercapnic respiratory failure. 2. Acute exacerbation of chronic obstructive pulmonary disease./ end stage 3. Recent pulmonary embolism diagnosed at [facility] approximately a week ago. Rx with Xarelto. 4. Epistaxis and left subconjunctival hemorrhage, resulting from cough and increased pressure. resolved 5. Hypertension. 6. Depression. 7. Tobacco dependence, in remission. 8. abnl ct of chest, rll density 9. allergic rhinitis 10. compressive fracture lower back 07/07 IMPRESSION: Resolution of previously seen spiculated nodule consistent with a benign inflammatory or infectious nodule. There is a new small groundglass lung infiltrate within the posterior right lower lobe most likely representing atelectasis. Stable compression fractures of T1 and T6. Increase in compression fracture of the superior endplate of T12. New compression fracture of T9. The latter 2 findings are stable from CT study of the thoracic spine performed on July 06, 2018. Note-only 11 ribs. Plan . d/w patient/ IR Patient is at very high risk of respiratory failure with sedation/ may need trach/vent He does not want to persue kyphoplasty as he does not want to be on vent cancel surgery conservative Rx BIPAP qhs and prn decrease pred nebs continue same otherwise Resume AntiCoag with Xarelto in am and dc Lovenox VIN MEAD MD July 11, 2018 23:47
[2018-07-12 03:32] VITALS: BP 126/86
[2018-07-12 03:50] LABS: BASO % 0 % (0-3); EOS % 0 % (0-3); HEMATOCRIT 31.2 % (39.0-53.0); HEMOGLOBIN 10.3 g/dL (13.0-17.5); LYMPH # 0.2 x10^3/uL (1.0-4.8); LYMPH % 3 % (24-48); MEAN CORPUSCULAR HEMOGLOBIN 29 pg (25-35); MEAN CORPUSCULAR HGB CONC 33 g/dL (31-37); MEAN CORPUSCULAR VOLUME 87 fL (79-100); MONO # 0.3 x10^3/uL (0.0-1.1); MONO % 5 % (0-9); NEUT # 6.2 x10^3uL (1.8-7.7); NEUT % 92 % (31-73); PLATELET COUNT 142 x10^3/uL (140-400); RED BLOOD COUNT 3.57 x10^6/uL (4.30-5.70); RED CELL DISTRIBUTION WIDTH 15.8 % (11.5-14.5); WHITE BLOOD COUNT 6.8 x10^3/uL (4.0-11.0)
[2018-07-12 04:05] LABS: CALCIUM 9.5 mg/dL (8.5-10.1); CREATININE 1.1 mg/dL (0.7-1.3); GFR 82.9; POTASSIUM 4.4 mmol/L (3.5-5.1)
[2018-07-12 05:22] LABS: % BANDS 1 % (0-9); % LYMPHS 3 % (24-48); % METAS 1 % (0-0); % MONOS 4 % (0-10); % SEGS 91 % (35-66); NUCLEATED RBC 2; PLT ESTIMATE ADEQUATE (ADEQUATE)
[2018-07-12 07:00] VITALS: BP 121/84
[2018-07-12] MEDS ORDERED: MORPHINE SULFATE 2 MG/ML VIAL. IV PRN (07:00)
[2018-07-12] MEDS ORDERED: LIDOCAINE 1% PF 2 ML VIAL. ID PRN (07:00)
[2018-07-12] MEDS ORDERED: fentaNYL PF VIAL 100 MCG/2 ML VIAL IV PRN ×2 (07:00)
[2018-07-12] MEDS ORDERED: ONDANSETRON PF 4 MG/2 ML VIAL. IV PRN (07:00)
[2018-07-12] MEDS ORDERED: HYDROmorphone 2 MG/ML VIAL IV PRN (07:00)
[2018-07-12] MEDS ORDERED: IV RINGERS,LACTATED 1000ML 1,000 ML IV SCH (07:00)
[2018-07-12] MEDS: INSULIN LISPRO 300 UNITS/3 ML INSULN.PEN. SQ SCH ×2 (07:30→12:10)
--- NOTE | 2018-07-12 08:08 | PDOC ---
PROGRESS NOTES Chief Complaint Chief Complaint Stage COPD, end stage. 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 Still short of breath and having back pain Agreeable to SNU placement Will be difficult, have to d/w IR for kyphoplasty because he needs a nticoagulation as well, has been continued on his xarelto which was held 07/08/18, transition to lovenox today, hold in the morning for kyphoplasty tomorrow as MRI was not available. Will start fentanyl patch as he cannot lay flat. Vitals Vitals Vital Signs Date Time Temp Pulse Resp B/P (MAP) Pulse Ox O2 Delivery O2 Flow Rate FiO2 07/12/18 07:00 98.2 90 18 121/84 (96) 99 Nasal Cannula 4.0 98.2 Physical Exam General: Alert, Oriented X3, Cooperative, No acute distress Lungs: Other (poor air flow) Abdomen: Normal bowel sounds, Soft, No tenderness, No hepatosplenomegaly, No masses Extremities: No clubbing, No cyanosis, No edema, Normal pulses, No tenderness/swelling Skin: Other (very dry skin, skin atrophy visible from chronic steroid use) Labs LABS Laboratory Tests Test 07/11/18 08:35 07/11/18 11:59 07/11/18 17:13 07/11/18 20:58 White Blood Count 5.4 x10^3/uL (4.0-11.0) Red Blood Count 3.64 x10^6/uL (4.30-5.70) Hemoglobin 10.7 g/dL (13.0-17.5) Hematocrit 31.6 % (39.0-53.0) Mean Corpuscular Volume 87 fL (79-100) Mean Corpuscular Hemoglobin 29 pg (25-35) Mean Corpuscular Hemoglobin Concent 34 g/dL (31-37) Red Cell Distribution Width 15.6 % (11.5-14.5) Platelet Count 128 x10^3/uL (140-400) Neutrophils (%) (Auto) 90 % (31-73) Lymphocytes (%) (Auto) 5 % (24-48) Monocytes (%) (Auto) 4 % (0-9) Eosinophils (%) (Auto) 1 % (0-3) Basophils (%) (Auto) 0 % (0-3) Neutrophils # (Auto) 4.9 x10^3uL (1.8-7.7) Lymphocytes # (Auto) 0.3 x10^3/uL (1.0-4.8) Monocytes # (Auto) 0.2 x10^3/uL (0.0-1.1) Eosinophils # (Auto) 0.0 x10^3/uL (0.0-0.7) Basophils # (Auto) 0.0 x10^3/uL (0.0-0.2) Sodium Level 143 mmol/L (136-145) Potassium Level 4.1 mmol/L (3.5-5.1) Chloride Level 101 mmol/L (98-107) Carbon Dioxide Level 37 mmol/L (21-32) Anion Gap 5 (6-14) Blood Urea Nitrogen 13 mg/dL (8-26) Creatinine 0.9 mg/dL (0.7-1.3) Estimated GFR (Cockcroft-Gault) 104.5 Glucose Level 130 mg/dL (70-99) Calcium Level 9.2 mg/dL (8.5-10.1) Glucose (Fingerstick) 115 mg/dL (70-99) 187 mg/dL (70-99) 248 mg/dL (70-99) Test 07/12/18 02:40 07/12/18 07:14 White Blood Count 6.8 x10^3/uL (4.0-11.0) Red Blood Count 3.57 x10^6/uL (4.30-5.70) Hemoglobin 10.3 g/dL (13.0-17.5) Hematocrit 31.2 % (39.0-53.0) Mean Corpuscular Volume 87 fL (79-100) Mean Corpuscular Hemoglobin 29 pg (25-35) Mean Corpuscular Hemoglobin Concent 33 g/dL (31-37) Red Cell Distribution Width 15.8 % (11.5-14.5) Platelet Count 142 x10^3/uL (140-400) Neutrophils (%) (Auto) 92 % (31-73) Lymphocytes (%) (Auto) 3 % (24-48) Monocytes (%) (Auto) 5 % (0-9) Eosinophils (%) (Auto) 0 % (0-3) Basophils (%) (Auto) 0 % (0-3) Neutrophils # (Auto) 6.2 x10^3uL (1.8-7.7) Lymphocytes # (Auto) 0.2 x10^3/uL (1.0-4.8) Monocytes # (Auto) 0.3 x10^3/uL (0.0-1.1) Eosinophils # (Auto) 0.0 x10^3/uL (0.0-0.7) Basophils # (Auto) 0.0 x10^3/uL (0.0-0.2) Segmented Neutrophils % 91 % (35-66) Band Neutrophils % 1 % (0-9) Lymphocytes % 3 % (24-48) Monocytes % 4 % (0-10) Metamyelocytes % 1 % (0-0) Nucleated Red Blood Cells 2 Platelet Estimate Adequate (ADEQUATE) Sodium Level 139 mmol/L (136-145) Potassium Level 4.4 mmol/L (3.5-5.1) Chloride Level 98 mmol/L (98-107) Carbon Dioxide Level 36 mmol/L (21-32) Anion Gap 5 (6-14) Blood Urea Nitrogen 18 mg/dL (8-26) Creatinine 1.1 mg/dL (0.7-1.3) Estimated GFR (Cockcroft-Gault) 82.9 Glucose Level 134 mg/dL (70-99) Calcium Level 9.5 mg/dL (8.5-10.1) Glucose (Fingerstick) 141 mg/dL (70-99) Assessment and Plan Assessmemt and Plan Problems Medical Problems: (1) COPD with exacerbation Status: Acute (2) Hyperglycemia Status: Acute (3) Pulmonary embolism Status: Acute (4) Shortness of breath Status: Acute Comment Review of Relevant I have reviewed the following items franki (where applicable) has been applied. Labs Laboratory Tests Test 07/10/18 08:54 07/10/18 12:00 07/10/18 17:11 5/29/19 20:58 White Blood Count 5.8 x10^3/uL (4.0-11.0) Red Blood Count 3.75 x10^6/uL (4.30-5.70) Hemoglobin 10.9 g/dL (13.0-17.5) Hematocrit 33.0 % (39.0-53.0) Mean Corpuscular Volume 88 fL (79-100) Mean Corpuscular Hemoglobin 29 pg (25-35) Mean Corpuscular Hemoglobin Concent 33 g/dL (31-37) Red Cell Distribution Width 15.8 % (11.5-14.5) Platelet Count 135 x10^3/uL (140-400) Neutrophils (%) (Auto) 90 % (31-73) Lymphocytes (%) (Auto) 5 % (24-48) Monocytes (%) (Auto) 4 % (0-9) Eosinophils (%) (Auto) 1 % (0-3) Basophils (%) (Auto) 0 % (0-3) Neutrophils # (Auto) 5.2 x10^3uL (1.8-7.7) Lymphocytes # (Auto) 0.3 x10^3/uL (1.0-4.8) Monocytes # (Auto) 0.2 x10^3/uL (0.0-1.1) Eosinophils # (Auto) 0.1 x10^3/uL (0.0-0.7) Basophils # (Auto) 0.0 x10^3/uL (0.0-0.2) Sodium Level 140 mmol/L (136-145) Potassium Level 3.8 mmol/L (3.5-5.1) Chloride Level 99 mmol/L (98-107) Carbon Dioxide Level 32 mmol/L (21-32) Anion Gap 9 (6-14) Blood Urea Nitrogen 13 mg/dL (8-26) Creatinine 0.9 mg/dL (0.7-1.3) Estimated GFR (Cockcroft-Gault) 104.5 Glucose Level 126 mg/dL (70-99) Calcium Level 8.9 mg/dL (8.5-10.1) Glucose (Fingerstick) 268 mg/dL (70-99) 161 mg/dL (70-99) 253 mg/dL (70-99) Test 07/11/18 07:13 07/11/18 08:35 07/11/18 11:59 07/11/18 17:13 Glucose (Fingerstick) 131 mg/dL (70-99) 115 mg/dL (70-99) 187 mg/dL (70-99) White Blood Count 5.4 x10^3/uL (4.0-11.0) Red Blood Count 3.64 x10^6/uL (4.30-5.70) Hemoglobin 10.7 g/dL (13.0-17.5) Hematocrit 31.6 % (39.0-53.0) Mean Corpuscular Volume 87 fL (79-100) Mean Corpuscular Hemoglobin 29 pg (25-35) Mean Corpuscular Hemoglobin Concent 34 g/dL (31-37) Red Cell Distribution Width 15.6 % (11.5-14.5) Platelet Count 128 x10^3/uL (140-400) Neutrophils (%) (Auto) 90 % (31-73) Lymphocytes (%) (Auto) 5 % (24-48) Monocytes (%) (Auto) 4 % (0-9) Eosinophils (%) (Auto) 1 % (0-3) Basophils (%) (Auto) 0 % (0-3) Neutrophils # (Auto) 4.9 x10^3uL (1.8-7.7) Lymphocytes # (Auto) 0.3 x10^3/uL (1.0-4.8) Monocytes # (Auto) 0.2 x10^3/uL (0.0-1.1) Eosinophils # (Auto) 0.0 x10^3/uL (0.0-0.7) Basophils # (Auto) 0.0 x10^3/uL (0.0-0.2) Sodium Level 143 mmol/L (136-145) Potassium Level 4.1 mmol/L (3.5-5.1) Chloride Level 101 mmol/L (98-107) Carbon Dioxide Level 37 mmol/L (21-32) Anion Gap 5 (6-14) Blood Urea Nitrogen 13 mg/dL (8-26) Creatinine 0.9 mg/dL (0.7-1.3) Estimated GFR (Cockcroft-Gault) 104.5 Glucose Level 130 mg/dL (70-99) Calcium Level 9.2 mg/dL (8.5-10.1) Test 07/11/18 20:58 07/12/18 02:40 07/12/18 07:14 Glucose (Fingerstick) 248 mg/dL (70-99) 141 mg/dL (70-99) White Blood Count 6.8 x10^3/uL (4.0-11.0) Red Blood Count 3.57 x10^6/uL (4.30-5.70) Hemoglobin 10.3 g/dL (13.0-17.5) Hematocrit 31.2 % (39.0-53.0) Mean Corpuscular Volume 87 fL (79-100) Mean Corpuscular Hemoglobin 29 pg (25-35) Mean Corpuscular Hemoglobin Concent 33 g/dL (31-37) Red Cell Distribution Width 15.8 % (11.5-14.5) Platelet Count 142 x10^3/uL (140-400) Neutrophils (%) (Auto) 92 % (31-73) Lymphocytes (%) (Auto) 3 % (24-48) Monocytes (%) (Auto) 5 % (0-9) Eosinophils (%) (Auto) 0 % (0-3) Basophils (%) (Auto) 0 % (0-3) Neutrophils # (Auto) 6.2 x10^3uL (1.8-7.7) Lymphocytes # (Auto) 0.2 x10^3/uL (1.0-4.8) Monocytes # (Auto) 0.3 x10^3/uL (0.0-1.1) Eosinophils # (Auto) 0.0 x10^3/uL (0.0-0.7) Basophils # (Auto) 0.0 x10^3/uL (0.0-0.2) Segmented Neutrophils % 91 % (35-66) Band Neutrophils % 1 % (0-9) Lymphocytes % 3 % (24-48) Monocytes % 4 % (0-10) Metamyelocytes % 1 % (0-0) Nucleated Red Blood Cells 2 Platelet Estimate Adequate (ADEQUATE) Sodium Level 139 mmol/L (136-145) Potassium Level 4.4 mmol/L (3.5-5.1) Chloride Level 98 mmol/L (98-107) Carbon Dioxide Level 36 mmol/L (21-32) Anion Gap 5 (6-14) Blood Urea Nitrogen 18 mg/dL (8-26) Creatinine 1.1 mg/dL (0.7-1.3) Estimated GFR (Cockcroft-Gault) 82.9 Glucose Level 134 mg/dL (70-99) Calcium Level 9.5 mg/dL (8.5-10.1) Laboratory Tests Test 07/11/18 08:35 07/11/18 11:59 07/11/18 17:13 07/11/18 20:58 White Blood Count 5.4 x10^3/uL (4.0-11.0) Red Blood Count 3.64 x10^6/uL (4.30-5.70) Hemoglobin 10.7 g/dL (13.0-17.5) Hematocrit 31.6 % (39.0-53.0) Mean Corpuscular Volume 87 fL (79-100) Mean Corpuscular Hemoglobin 29 pg (25-35) Mean Corpuscular Hemoglobin Concent 34 g/dL (31-37) Red Cell Distribution Width 15.6 % (11.5-14.5) Platelet Count 128 x10^3/uL (140-400) Neutrophils (%) (Auto) 90 % (31-73) Lymphocytes (%) (Auto) 5 % (24-48) Monocytes (%) (Auto) 4 % (0-9) Eosinophils (%) (Auto) 1 % (0-3) Basophils (%) (Auto) 0 % (0-3) Neutrophils # (Auto) 4.9 x10^3uL (1.8-7.7) Lymphocytes # (Auto) 0.3 x10^3/uL (1.0-4.8) Monocytes # (Auto) 0.2 x10^3/uL (0.0-1.1) Eosinophils # (Auto) 0.0 x10^3/uL (0.0-0.7) Basophils # (Auto) 0.0 x10^3/uL (0.0-0.2) Sodium Level 143 mmol/L (136-145) Potassium Level 4.1 mmol/L (3.5-5.1) Chloride Level 101 mmol/L (98-107) Carbon Dioxide Level 37 mmol/L (21-32) Anion Gap 5 (6-14) Blood Urea Nitrogen 13 mg/dL (8-26) Creatinine 0.9 mg/dL (0.7-1.3) Estimated GFR (Cockcroft-Gault) 104.5 Glucose Level 130 mg/dL (70-99) Calcium Level 9.2 mg/dL (8.5-10.1) Glucose (Fingerstick) 115 mg/dL (70-99) 187 mg/dL (70-99) 248 mg/dL (70-99) Test 07/12/18 02:40 07/12/18 07:14 White Blood Count 6.8 x10^3/uL (4.0-11.0) Red Blood Count 3.57 x10^6/uL (4.30-5.70) Hemoglobin 10.3 g/dL (13.0-17.5) Hematocrit 31.2 % (39.0-53.0) Mean Corpuscular Volume 87 fL (79-100) Mean Corpuscular Hemoglobin 29 pg (25-35) Mean Corpuscular Hemoglobin Concent 33 g/dL (31-37) Red Cell Distribution Width 15.8 % (11.5-14.5) Platelet Count 142 x10^3/uL (140-400) Neutrophils (%) (Auto) 92 % (31-73) Lymphocytes (%) (Auto) 3 % (24-48) Monocytes (%) (Auto) 5 % (0-9) Eosinophils (%) (Auto) 0 % (0-3) Basophils (%) (Auto) 0 % (0-3) Neutrophils # (Auto) 6.2 x10^3uL (1.8-7.7) Lymphocytes # (Auto) 0.2 x10^3/uL (1.0-4.8) Monocytes # (Auto) 0.3 x10^3/uL (0.0-1.1) Eosinophils # (Auto) 0.0 x10^3/uL (0.0-0.7) Basophils # (Auto) 0.0 x10^3/uL (0.0-0.2) Segmented Neutrophils % 91 % (35-66) Band Neutrophils % 1 % (0-9) Lymphocytes % 3 % (24-48) Monocytes % 4 % (0-10) Metamyelocytes % 1 % (0-0) Nucleated Red Blood Cells 2 Platelet Estimate Adequate (ADEQUATE) Sodium Level 139 mmol/L (136-145) Potassium Level 4.4 mmol/L (3.5-5.1) Chloride Level 98 mmol/L (98-107) Carbon Dioxide Level 36 mmol/L (21-32) Anion Gap 5 (6-14) Blood Urea Nitrogen 18 mg/dL (8-26) Creatinine 1.1 mg/dL (0.7-1.3) Estimated GFR (Cockcroft-Gault) 82.9 Glucose Level 134 mg/dL (70-99) Calcium Level 9.5 mg/dL (8.5-10.1) Glucose (Fingerstick) 141 mg/dL (70-99) Microbiology 07/05/18 Blood Culture - Final, Complete 07/05/18 Blood Culture Result 1 (TIM) - Final, Complete 07/05/18 Antimicrobic Susceptibility - Final, Complete Medications Current Medications Albuterol/ Ipratropium (Duoneb) 3 ml 1X ONCE NEB Last administered on 07/04/18at 16:30; Start 07/04/18 at 16:30; Stop 07/04/18 at 16:31; Status DC Methylprednisolone Sodium Succinate (SOLU-Medrol 125MG VIAL) 125 mg 1X ONCE IV Last administered on 07/04/18at 16:55; Start 07/04/18 at 16:30; Stop 07/04/18 at 16:31; Status DC Acetaminophen/ Hydrocodone Bitart (Lortab 5/325) 2 tab 1X ONCE PO Last admini stered on 07/04/18at 16:54; Start 07/04/18 at 16:30; Stop 07/04/18 at 16:31; Status DC Albuterol/ Ipratropium (Duoneb) 3 ml RTQID NEB Last administered on 07/11/18at 18:26; Start 07/04/18 at 20:00 Guaifenesin (Robitussin Dm) 10 ml PRN Q6HRS PRN PO COUGH; Start 07/04/18 at 17:00 Acetaminophen (Tylenol) 650 mg PRN Q4HRS PRN PO TEMP OVER 100.4F OR MILD PAIN; Start 07/04/18 at 17:00; Status UNV Atorvastatin Calcium (Lipitor) 10 mg HS PO Last administered on 07/11/18 21:50; Start 07/04/18 at 21:00 Furosemide (Lasix) 40 mg DAILY PO Last administered on 07/11/18 14:19; Start 07/05/18 at 09:00 Lorazepam (Ativan) 1 mg BID PO Last administered on 07/11/18 21:49; Start 07/04/18 at 21:00 Metoclopramide HCl (Reglan) 5 mg QIDACHS PO Last administered on 07/11/18 21:50; Start 07/04/18 at 18:00 Tramadol HCl (Ultram) 50 mg PRN Q6HRS PRN PO PAIN Last administered on 07/11/18 22:02; Start 07/04/18 at 17:00 Vitamin D (Vitamin D3) 5,000 unit DAILY PO Last administered on 07/11/18 14:19; Start 07/05/18 at 09:00 Fluticasone Propionate (Flonase) 2 spray DAILY NS Last administered on 07/09/18 09:17; Start 07/05/18 at 09:00 Pantoprazole Sodium (Protonix) 40 mg DAILYAC PO Last administered on 07/11/18 14:18; Start 07/05/18 at 07:30 Potassium Chloride (Klor-Con) 20 meq DAILYWBKFT PO Last administered on 07/11/18 14:19; Start 07/05/18 at 08:00 Prednisone (Prednisone) 60 mg DAILY PO Last administered on 07/08/18 08:28; Start 07/05/18 at 09:00; Stop 07/08/18 at 16:15; Status DC Temazepam (Restoril) 7.5 mg PRN QHS PRN PO INSOMNIA Last administered on 07/11/18 22:02; Start 07/04/18 at 17:15 Lidocaine (Lidoderm) 1 patch DAILY TD Last administered on 07/11/18 14:20; Start 07/05/18 at 09:00 Rivaroxaban (Xarelto) 15 mg BIDWMEALS PO Last administered on 07/08/18 08:29; Start 07/04/18 at 21:00; Stop 07/08/18 at 16:58; Status DC Sodium Chloride 1,000 ml @ 1,000 mls/hr 1X ONCE IV Last administered on 07/04/18at 18:35; Start 07/04/18 at 17:15; Stop 07/04/18 at 18:14; Status DC Sodium Chloride 1,000 ml @ 1,000 mls/hr 1X ONCE IV Last administered on 07/04/18at 20:05; Start 07/04/18 at 17:15; Stop 07/04/18 at 18:14; Status DC Ceftriaxone Sodium (Rocephin) 1 gm 1X ONCE IVP Last administered on 07/04/18at 20:21; Start 07/04/18 at 17:15; Stop 07/04/18 at 17:23; Status DC Ondansetron HCl (Zofran) 4 mg PRN Q8HRS PRN IV NAUSEA/VOMITING; Start 07/04/18 at 18:30; Stop 07/05/18 at 18:29; Status DC Morphine Sulfate (Morphine Sulfate) 2 mg PRN Q2HR PRN IV PAIN; Start 07/04/18 at 18:30; Stop 07/05/18 at 18:29; Status DC Acetaminophen (Tylenol) 650 mg PRN Q4HRS PRN PO FEVER; Start 07/04/18 at 18:30; Stop 07/05/18 at 18:29; Status DC Albuterol/ Ipratropium (Duoneb) 3 ml RTQID NEB ; Start 07/04/18 at 20:00; Stop 07/05/18 at 19:59; Status UNV Info (Anti-Coagulation Monitoring By Pharmacy) 1 each PRN DAILY PRN MC SEE COMMENTS Last administered on 07/11/18at 11:14; Start 07/04/18 at 20:45 Doxycycline Hyclate (Vibra-Tab) 100 mg BID PO Last administered on 07/11/18at 21:50; Start 07/05/18 at 21:00 Docusate Sodium (Colace) 100 mg BID PO Last administered on 07/11/18at 21:50; Start 07/06/18 at 12:00 Fluticasone Propionate (Flonase) 2 spray DAILY NS ; Start 07/07/18 at 09:00; Status UNV Lactobacillus Rhamnosus (Culturelle) 1 cap BID PO Last administered on 07/08/18at 08:29; Start 07/07/18 at 21:00; Stop 07/08/18 at 12:57; Status DC Ceftriaxone Sodium (Rocephin) 1 gm Q24H IVP Last administered on 07/11/18at 14:24; Start 07/07/18 at 14:00 Dextrose (Dextrose 50%-Water Syringe) 12.5 gm PRN Q15MIN PRN IV SEE COMMENTS; Start 07/07/18 at 17:30; Status UNV Insulin Human Lispro (HumaLOG) 0-7 UNITS QIDACHS SQ ; Start 07/07/18 at 17:30; Stop 07/07/18 at 17:53; Status DC Dextrose (Dextrose 50%-Water Syringe) 12.5 gm PRN Q15MIN PRN IV SEE COMMENTS; Start 07/07/18 at 17:30 Insulin Human Lispro (HumaLOG) 0-5 UNITS TIDWMEALS SQ Last administered on 07/08/18at 12:15; Start 07/07/18 at 18:00; Stop 07/08/18 at 16:55; Status DC Dextrose (Dextrose 50%-Water Syringe) 12.5 gm PRN Q15MIN PRN IV SEE COMMENTS; Start 07/07/18 at 18:00; Status UNV Prednisone (Prednisone) 20 mg DAILY PO Last administered on 07/11/18at 14:19; Start 07/09/18 at 09:00 Insulin Human Lispro (HumaLOG) 0-7 UNITS QIDACHS SQ Last administered on 07/11/18at 21:57; Start 07/08/18 at 21:00 Dextrose (Dextrose 50%-Water Syringe) 12.5 gm PRN Q15MIN PRN IV SEE COMMENTS; Start 07/08/18 at 17:00; Status UNV Info (Hold Preop Anti-Coag Meds) 1 ea CONT PRN PRN MC SEE COMMENTS; Start 07/08/18 at 17:00 Insulin Human Lispro (HumaLOG) 8 units 1X ONCE SQ Last administered on 07/08/18at 17:31; Start 07/08/18 at 17:00; Stop 07/08/18 at 17:02; Status DC Lactobacillus Rhamnosus (Culturelle) 1 cap BID PO ; Start 07/09/18 at 21:00; Status Cancel Enoxaparin Sodium (Lovenox 80mg Syringe) 80 mg Q12HR SQ Last administered on 07/11/18at 21:49; Start 07/09/18 at 13:00 Albuterol Sulfate (Ventolin Neb Soln) 2.5 mg PRN Q4HRS PRN NEB SHORTNESS OF BREATH Last administered on 07/11/18at 18:28; Start 07/09/18 at 14:15 Lidocaine/Sodium Bicarbonate (Buffered Lidocaine 1%) 3 ml STK-MED ONCE .ROUTE ; Start 07/11/18 at 13:06; Stop 07/11/18 at 13:07; Status DC Iohexol (Omnipaque 240 Mg/ml) 50 ml STK-MED ONCE .ROUTE ; Start 07/11/18 at 13:06; Stop 07/11/18 at 13:07; Status DC Midazolam HCl (Versed) 5 mg STK-MED ONCE .ROUTE ; Start 07/11/18 at 13:07; Stop 07/11/18 at 13:08; Status DC Fentanyl Citrate (Fentanyl 5ml Vial) 250 mcg STK-MED ONCE .ROUTE ; Start 07/11/18 at 13:08; Stop 07/11/18 at 13:09; Status DC Cefazolin Sodium 50 ml @ 100 mls/hr STAT ONCE IV ; Start 07/11/18 at 13:45; Stop 07/11/18 at 14:14; Status DC Fentanyl Citrate (Fentanyl 5ml Vial) 50 mcg 1X ONCE IV Last administered on 07/11/18at 13:45; Start 07/11/18 at 13:45; Stop 07/11/18 at 13:49; Status DC Ondansetron HCl (Zofran) 4 mg PRN Q6HRS PRN IV NAUSEA/VOMITING; Start 07/12/18 at 07:00; Stop 07/12/18 at 20:00 Fentanyl Citrate (Fentanyl 2ml Vial) 25 mcg PRN Q5MIN PRN IV MILD PAIN 1-3; Start 07/12/18 at 07:00; Stop 07/12/18 at 20:00 Fentanyl Citrate (Fentanyl 2ml Vial) 50 mcg PRN Q5MIN PRN IV MODERATE TO SEVERE PAIN; Start 07/12/18 at 07:00; Stop 07/12/18 at 20:00 Morphine Sulfate (Morphine Sulfate) 1 mg PRN Q10MIN PRN IV SEVERE PAIN 7-10; Start 07/12/18 at 07:00; Stop 07/12/18 at 20:00 Ringer's Solution 1,000 ml @ 30 mls/hr Q24H IV ; Start 07/12/18 at 07:00; Stop 07/12/18 at 18:59 Lidocaine HCl (Xylocaine-Mpf 1% 2ml Vial) 2 ml PRN 1X PRN ID PRIOR TO IV START; Start 07/12/18 at 07:00; Stop 07/12/18 at 20:00 Hydromorphone HCl (Dilaudid) 0.5 mg PRN Q10MIN PRN IV SEV PAIN, Second choice; Start 07/12/18 at 07:00; Stop 07/12/18 at 20:00 Fentanyl (Duragesic 25mcg/ Hr Patch) 1 patch Q3DAYS TD Last administered on 07/11/18at 16:55; Start 07/11/18 at 15:15 Ibuprofen (Motrin) 600 mg PRN Q6HRS PRN PO INFLAMMATION; Start 07/11/18 at 19:30 Guaifenesin (Mucinex) 1,200 mg BID PO Last administered on 07/11/18at 21:50; S tart 07/11/18 at 21:00 Active Scripts Active Augmentin 875-125 Tablet (Amoxicillin/Potassium Clav) 1 Each Tablet 1 Tab PO BID Tramadol Hcl 50 Mg Tablet 50 Mg PO Q6HRS PRN Prednisone (Prednisone) 10 Mg Tablet 10 Mg PO UD Take 3 tablets by mouth twice a day for 3 days, then take 2 tablets by mouth twice a day for 3 days, then take 1 tablet by mouth twice a day for 3 days, then take 1 tablet by mouth daily x 3 days, then stop. Ativan (Lorazepam) 1 Mg Tablet 1 Mg PO BID Guaifenesin 100 Mg/5 Ml Liquid 200 Mg PO PRN Q4HRS PRN 30 Days Tylenol (Acetaminophen) 325 Mg Tablet 650 Mg PO PRN Q4HRS PRN 10 Days Ventolin Hfa Inhaler (Albuterol Sulfate) 18 Gm Hfa.aer.ad 2 Puff INH Q4HRS Reglan (Metoclopramide Hcl) 10 Mg Tablet 0.5 Tab PO QID 30 Days Albuterol Sulfate Neb Soln (Albuterol Sulfate) 2.5 Mg/3 Ml Vial.neb 1 Vial NEB PRN Q4HRS Reported Furosemide 40 Mg Tablet 1 Tab PO DAILY Vitamin D3 (Cholecalciferol (Vitamin D3)) 5,000 Unit Tablet 5,000 Unit PO DAILY Potassium Chloride 20 Meq Tablet.er 20 Meq PO DAILY Protonix (Pantoprazole Sodium) 20 Mg Tablet.dr 1 Tab PO DAILY Flonase Allergy Relief (Fluticasone Propionate) 9.9 Ml [place].susp 2 Sprays NS DAILY Atorvastatin Calcium 10 Mg Tablet 10 Mg PO HS Symbicort 160-4.5 Mcg Inhaler (Budesonide/Formoterol Fumarate) 10.2 Gm Hfa.aer.ad 2 Puff IH BID Vitals/I & O Vital Sign - Last 24 Hours 07/11/18 07/11/18 07/11/18 07/11/18 10:39 11:00 13:45 15:00 Temp 98.6 99.1 98.6 99.1 Pulse 114 123 Resp 18 26 20 B/P (MAP) 139/81 (100) 104/64 (77) Pulse Ox 100 100 71 O2 Delivery Nasal Cannula Nasal Cannula Nasal Cannula O2 Flow Rate 3.0 4.0 4.0 07/11/18 07/11/18 07/11/18 07/11/18 15:05 15:08 18:28 19:28 Temp 100.7 100.7 Pulse 124 Resp 20 B/P (MAP) 112/66 (81) Pulse Ox 87 95 O2 Delivery Nasal Cannula Nasal Cannula Nasal Cannula Nasal Cannula O2 Flow Rate 5.0 3.0 4.0 4.0 07/11/18 07/11/18 07/11/18 07/11/18 19:30 20:55 21:49 22:02 O2 Delivery Nasal Cannula Nasal Cannula Nasal Cannula Nasal Cannula O2 Flow Rate 4.0 4.0 07/11/18 07/11/18 07/12/18 07/12/18 22:47 23:02 03:32 07:00 Temp 100.6 98.3 98.2 100.6 98.3 98.2 Pulse 124 95 90 Resp 22 18 18 B/P (MAP) 133/63 (86) 126/86 (99) 121/84 (96) Pulse Ox 96 96 100 99 O2 Delivery Nasal Cannula Nasal Cannula Nasal Cannula Nasal Cannula O2 Flow Rate 4.0 4.0 4.0 4.0 Intake and Output 07/11/18 07/11/18 07/12/18 15:00 23:00 07:00 Intake Total 420 ml Output Total 375 ml 325 ml Balance -375 ml 95 ml KIRSTIE TREVINO MD July 12, 2018 08:08
[2018-07-12] MEDS: IPRATRPIUM/ALBUTEROL 0.5/2.5MG 3 ML NEBU. NEB SCH ×2 (08:29→11:38)
[2018-07-12] MEDS: METOCLOPRAMIDE 10 MG TABLET. PO SCH ×2 (08:48→12:01)
[2018-07-12] MEDS: DOCUSATE SODIUM 100 MG CAPSULE. PO SCH (08:48)
[2018-07-12] MEDS: PANTOPRAZOLE 40 MG TABLET.DR. PO SCH (08:48)
[2018-07-12] MEDS: CHOLECALCIFEROL (VITAMIN D3) 5,000 UNIT CAPSULE PO SCH (08:49)
[2018-07-12] MEDS: POTASSIUM CHLORIDE 20 MEQ TABLET.ER. PO SCH (08:49)
[2018-07-12] MEDS: DOXYCYCLINE HYCLATE 100 MG TABLET PO SCH (08:49)
[2018-07-12] MEDS: predniSONE 20 MG TABLET PO SCH (08:49)
[2018-07-12] MEDS: FUROSEMIDE 40 MG TABLET. PO SCH (08:49)
[2018-07-12] MEDS: LORazepam 1 MG TABLET PO SCH (08:50)
[2018-07-12] MEDS: FLUTICASONE 50MCG/NASAL SPRAY 16GM BOTTLE. NS SCH (08:50)
[2018-07-12] MEDS: LIDOCAINE (700MG/PATCH) PATCH. TD SCH (09:00)
--- NOTE | 2018-07-12 10:05 | PDOC ---
PROGRESS NOTES Subjective Subjective He continues with mid back pain. Objective Objective Vital Signs Date Time Temp Pulse Resp B/P (MAP) Pulse Ox O2 Delivery O2 Flow Rate FiO2 07/12/18 08:30 100 Nasal Cannula 4.0 07/12/18 07:00 98.2 90 18 121/84 (96) 98.2 Intake and Output 07/12/18 06:59 Intake Total 420 ml Output Total 700 ml Balance -280 ml Intake Oral 420 ml Output Urine Total 700 ml Physical Exam Physical Exam He is somewhat lethargic this AM. He could not tolerate lying in position required for kyphoplasty. Assessment Assessment Problems Medical Problems: (1) COPD with exacerbation Status: Acute (2) Hyperglycemia Status: Acute (3) Pulmonary embolism Status: Acute (4) Shortness of breath Status: Acute Plan Plan of Care To continue present medicines to control his back pain. Comment Review of Relevant I have reviewed the following items franki (where applicable) has been applied. Labs Laboratory Tests Test 07/10/18 12:00 07/10/18 17:11 07/10/18 20:58 07/11/18 07:13 Glucose (Fingerstick) 268 mg/dL (70-99) 161 mg/dL (70-99) 253 mg/dL (70-99) 131 mg/dL (70-99) Test 07/11/18 08:35 07/11/18 11:59 07/11/18 17:13 07/11/18 20:58 White Blood Count 5.4 x10^3/uL (4.0-11.0) Red Blood Count 3.64 x10^6/uL (4.30-5.70) Hemoglobin 10.7 g/dL (13.0-17.5) Hematocrit 31.6 % (39.0-53.0) Mean Corpuscular Volume 87 fL (79-100) Mean Corpuscular Hemoglobin 29 pg (25-35) Mean Corpuscular Hemoglobin Concent 34 g/dL (31-37) Red Cell Distribution Width 15.6 % (11.5-14.5) Platelet Count 128 x10^3/uL (140-400) Neutrophils (%) (Auto) 90 % (31-73) Lymphocytes (%) (Auto) 5 % (24-48) Monocytes (%) (Auto) 4 % (0-9) Eosinophils (%) (Auto) 1 % (0-3) Basophils (%) (Auto) 0 % (0-3) Neutrophils # (Auto) 4.9 x10^3uL (1.8-7.7) Lymphocytes # (Auto) 0.3 x10^3/uL (1.0-4.8) Monocytes # (Auto) 0.2 x10^3/uL (0.0-1.1) Eosinophils # (Auto) 0.0 x10^3/uL (0.0-0.7) Basophils # (Auto) 0.0 x10^3/uL (0.0-0.2) Sodium Level 143 mmol/L (136-145) Potassium Level 4.1 mmol/L (3.5-5.1) Chloride Level 101 mmol/L (98-107) Carbon Dioxide Level 37 mmol/L (21-32) Anion Gap 5 (6-14) Blood Urea Nitrogen 13 mg/dL (8-26) Creatinine 0.9 mg/dL (0.7-1.3) Estimated GFR (Cockcroft-Gault) 104.5 Glucose Level 130 mg/dL (70-99) Calcium Level 9.2 mg/dL (8.5-10.1) Glucose (Fingerstick) 115 mg/dL (70-99) 187 mg/dL (70-99) 248 mg/dL (70-99) Test 07/12/18 02:40 07/12/18 07:14 White Blood Count 6.8 x10^3/uL (4.0-11.0) Red Blood Count 3.57 x10^6/uL (4.30-5.70) Hemoglobin 10.3 g/dL (13.0-17.5) Hematocrit 31.2 % (39.0-53.0) Mean Corpuscular Volume 87 fL (79-100) Mean Corpuscular Hemoglobin 29 pg (25-35) Mean Corpuscular Hemoglobin Concent 33 g/dL (31-37) Red Cell Distribution Width 15.8 % (11.5-14.5) Platelet Count 142 x10^3/uL (140-400) Neutrophils (%) (Auto) 92 % (31-73) Lymphocytes (%) (Auto) 3 % (24-48) Monocytes (%) (Auto) 5 % (0-9) Eosinophils (%) (Auto) 0 % (0-3) Basophils (%) (Auto) 0 % (0-3) Neutrophils # (Auto) 6.2 x10^3uL (1.8-7.7) Lymphocytes # (Auto) 0.2 x10^3/uL (1.0-4.8) Monocytes # (Auto) 0.3 x10^3/uL (0.0-1.1) Eosinophils # (Auto) 0.0 x10^3/uL (0.0-0.7) Basophils # (Auto) 0.0 x10^3/uL (0.0-0.2) Segmented Neutrophils % 91 % (35-66) Band Neutrophils % 1 % (0-9) Lymphocytes % 3 % (24-48) Monocytes % 4 % (0-10) Metamyelocytes % 1 % (0-0) Nucleated Red Blood Cells 2 Platelet Estimate Adequate (ADEQUATE) Sodium Level 139 mmol/L (136-145) Potassium Level 4.4 mmol/L (3.5-5.1) Chloride Level 98 mmol/L (98-107) Carbon Dioxide Level 36 mmol/L (21-32) Anion Gap 5 (6-14) Blood Urea Nitrogen 18 mg/dL (8-26) Creatinine 1.1 mg/dL (0.7-1.3) Estimated GFR (Cockcroft-Gault) 82.9 Glucose Level 134 mg/dL (70-99) Calcium Level 9.5 mg/dL (8.5-10.1) Glucose (Fingerstick) 141 mg/dL (70-99) Laboratory Tests Test 07/11/18 11:59 07/11/18 17:13 07/11/18 20:58 07/12/18 02:40 Glucose (Fingerstick) 115 mg/dL (70-99) 187 mg/dL (70-99) 248 mg/dL (70-99) White Blood Count 6.8 x10^3/uL (4.0-11.0) Red Blood Count 3.57 x10^6/uL (4.30-5.70) Hemoglobin 10.3 g/dL (13.0-17.5) Hematocrit 31.2 % (39.0-53.0) Mean Corpuscular Volume 87 fL (79-100) Mean Corpuscular Hemoglobin 29 pg (25-35) Mean Corpuscular Hemoglobin Concent 33 g/dL (31-37) Red Cell Distribution Width 15.8 % (11.5-14.5) Platelet Count 142 x10^3/uL (140-400) Neutrophils (%) (Auto) 92 % (31-73) Lymphocytes (%) (Auto) 3 % (24-48) Monocytes (%) (Auto) 5 % (0-9) Eosinophils (%) (Auto) 0 % (0-3) Basophils (%) (Auto) 0 % (0-3) Neutrophils # (Auto) 6.2 x10^3uL (1.8-7.7) Lymphocytes # (Auto) 0.2 x10^3/uL (1.0-4.8) Monocytes # (Auto) 0.3 x10^3/uL (0.0-1.1) Eosinophils # (Auto) 0.0 x10^3/uL (0.0-0.7) Basophils # (Auto) 0.0 x10^3/uL (0.0-0.2) Segmented Neutrophils % 91 % (35-66) Band Neutrophils % 1 % (0-9) Lymphocytes % 3 % (24-48) Monocytes % 4 % (0-10) Metamyelocytes % 1 % (0-0) Nucleated Red Blood Cells 2 Platelet Estimate Adequate (ADEQUATE) Sodium Level 139 mmol/L (136-145) Potassium Level 4.4 mmol/L (3.5-5.1) Chloride Level 98 mmol/L (98-107) Carbon Dioxide Level 36 mmol/L (21-32) Anion Gap 5 (6-14) Blood Urea Nitrogen 18 mg/dL (8-26) Creatinine 1.1 mg/dL (0.7-1.3) Estimated GFR (Cockcroft-Gault) 82.9 Glucose Level 134 mg/dL (70-99) Calcium Level 9.5 mg/dL (8.5-10.1) Test 07/12/18 07:14 Glucose (Fingerstick) 141 mg/dL (70-99) Microbiology 07/05/18 Blood Culture - Final, Complete 07/05/18 Blood Culture Result 1 (TIM) - Final, Complete 07/05/18 Antimicrobic Susceptibility - Final, Complete Medications Current Medications Albuterol/ Ipratropium (Duoneb) 3 ml 1X ONCE NEB Last administered on 07/04/18 16:30; Start 07/04/18 at 16:30; Stop 07/04/18 at 16:31; Status DC Methylprednisolone Sodium Succinate (SOLU-Medrol 125MG VIAL) 125 mg 1X ONCE IV Last administered on 07/04/18 16:55; Start 07/04/18 at 16:30; Stop 07/04/18 at 16:31; Status DC Acetaminophen/ Hydrocodone Bitart (Lortab 5/325) 2 tab 1X ONCE PO Last administered on 07/04/18 16:54; Start 07/04/18 at 16:30; Stop 07/04/18 at 16:31; Status DC Albuterol/ Ipratropium (Duoneb) 3 ml RTQID NEB Last administered on 07/12/18 08:29; Start 07/04/18 at 20:00 Guaifenesin (Robitussin Dm) 10 ml PRN Q6HRS PRN PO COUGH; Start 07/04/18 at 17:00 Acetaminophen (Tylenol) 650 mg PRN Q4HRS PRN PO TEMP OVER 100.4F OR MILD PAIN; Start 07/04/18 at 17:00; Status UNV Atorvastatin Calcium (Lipitor) 10 mg HS PO Last administered on 07/11/18 21:50; Start 07/04/18 at 21:00 Furosemide (Lasix) 40 mg DAILY PO Last administered on 07/12/18 08:49; Start 07/05/18 at 09:00 Lorazepam (Ativan) 1 mg BID PO Last administered on 07/12/18 08:50; Start 07/04/18 at 21:00 Metoclopramide HCl (Reglan) 5 mg QIDACHS PO Last administered on 07/12/18 08:48; Start 07/04/18 at 18:00 Tramadol HCl (Ultram) 50 mg PRN Q6HRS PRN PO PAIN Last administered on 07/11/18 22:02; Start 07/04/18 at 17:00 Vitamin D (Vitamin D3) 5,000 unit DAILY PO Last administered on 07/12/18 08:49; Start 07/05/18 at 09:00 Fluticasone Propionate (Flonase) 2 spray DAILY NS Last administered on 07/12/18 08:50; Start 07/05/18 at 09:00 Pantoprazole Sodium (Protonix) 40 mg DAILYAC PO Last administered on 07/12/18 08:48; Start 07/05/18 at 07:30 Potassium Chloride (Klor-Con) 20 meq DAILYWBKFT PO Last administered on 07/12/18 08:49; Start 07/05/18 at 08:00 Prednisone (Prednisone) 60 mg DAILY PO Last administered on 07/08/18 08:28; Start 07/05/18 at 09:00; Stop 07/08/18 at 16:15; Status DC Temazepam (Restoril) 7.5 mg PRN QHS PRN PO INSOMNIA Last administered on 07/11/18 22:02; Start 07/04/18 at 17:15 Lidocaine (Lidoderm) 1 patch DAILY TD Last administered on 07/11/18 14:20; Start 07/05/18 at 09:00 Rivaroxaban (Xarelto) 15 mg BIDWMEALS PO Last administered on 07/08/18 08:29; Start 07/04/18 at 21:00; Stop 07/08/18 at 16:58; Status DC Sodium Chloride 1,000 ml @ 1,000 mls/hr 1X ONCE IV Last administered on 07/04/18 18:35; Start 07/04/18 at 17:15; Stop 07/04/18 at 18:14; Status DC Sodium Chloride 1,000 ml @ 1,000 mls/hr 1X ONCE IV Last administered on 07/04/18 20:05; Start 07/04/18 at 17:15; Stop 07/04/18 at 18:14; Status DC Ceftriaxone Sodium (Rocephin) 1 gm 1X ONCE IVP Last administered on 07/04/18 20:21; Start 07/04/18 at 17:15; Stop 07/04/18 at 17:23; Status DC Ondansetron HCl (Zofran) 4 mg PRN Q8HRS PRN IV NAUSEA/VOMITING; Start 07/04/18 at 18:30; Stop 07/05/18 at 18:29; Status DC Morphine Sulfate (Morphine Sulfate) 2 mg PRN Q2HR PRN IV PAIN; Start 07/04/18 at 18:30; Stop 07/05/18 at 18:29; Status DC Acetaminophen (Tylenol) 650 mg PRN Q4HRS PRN PO FEVER; Start 07/04/18 at 18:30; Stop 07/05/18 at 18:29; Status DC Albuterol/ Ipratropium (Duoneb) 3 ml RTQID NEB ; Start 07/04/18 at 20:00; Stop 07/05/18 at 19:59; Status UNV Info (Anti-Coagulation Monitoring By Pharmacy) 1 each PRN DAILY PRN MC SEE COMMENTS Last administered on 07/11/18at 11:14; Start 07/04/18 at 20:45 Doxycycline Hyclate (Vibra-Tab) 100 mg BID PO Last administered on 07/12/18at 08:49; Start 07/05/18 at 21:00 Docusate Sodium (Colace) 100 mg BID PO Last administered on 07/12/18at 08:48; Start 07/06/18 at 12:00 Fluticasone Propionate (Flonase) 2 spray DAILY NS ; Start 07/07/18 at 09:00; Status UNV Lactobacillus Rhamnosus (Culturelle) 1 cap BID PO Last administered on 07/08/18at 08:29; Start 07/07/18 at 21:00; Stop 07/08/18 at 12:57; Status DC Ceftriaxone Sodium (Rocephin) 1 gm Q24H IVP Last administered on 07/11/18at 14:24; Start 07/07/18 at 14:00; Stop 07/12/18 at 08:08; Status DC Dextrose (Dextrose 50%-Water Syringe) 12.5 gm PRN Q15MIN PRN IV SEE COMMENTS; Start 07/07/18 at 17:30; Status UNV Insulin Human Lispro (HumaLOG) 0-7 UNITS QIDACHS SQ ; Start 07/07/18 at 17:30; Stop 07/07/18 at 17:53; Status DC Dextrose (Dextrose 50%-Water Syringe) 12.5 gm PRN Q15MIN PRN IV SEE COMMENTS; Start 07/07/18 at 17:30 Insulin Human Lispro (HumaLOG) 0-5 UNITS TIDWMEALS SQ Last administered on 07/08/18at 12:15; Start 07/07/18 at 18:00; Stop 07/08/18 at 16:55; Status DC Dextrose (Dextrose 50%-Water Syringe) 12.5 gm PRN Q15MIN PRN IV SEE COMMENTS; Start 07/07/18 at 18:00; Status UNV Prednisone (Prednisone) 20 mg DAILY PO Last administered on 07/12/18at 08:49; Start 07/09/18 at 09:00 Insulin Human Lispro (HumaLOG) 0-7 UNITS QIDACHS SQ Last administered on 07/11/18at 21:57; Start 07/08/18 at 21:00 Dextrose (Dextrose 50%-Water Syringe) 12.5 gm PRN Q15MIN PRN IV SEE COMMENTS; Start 07/08/18 at 17:00; Status UNV Info (Hold Preop Anti-Coag Meds) 1 ea CONT PRN PRN MC SEE COMMENTS; Start 07/08/18 at 17:00 Insulin Human Lispro (HumaLOG) 8 units 1X ONCE SQ Last administered on 07/08/18at 17:31; Start 07/08/18 at 17:00; Stop 07/08/18 at 17:02; Status DC Lactobacillus Rhamnosus (Culturelle) 1 cap BID PO ; Start 07/09/18 at 21:00; Status Cancel Enoxaparin Sodium (Lovenox 80mg Syringe) 80 mg Q12HR SQ Last administered on 07/11/18at 21:49; Start 07/09/18 at 13:00 Albuterol Sulfate (Ventolin Neb Soln) 2.5 mg PRN Q4HRS PRN NEB SHORTNESS OF BREATH Last administered on 07/11/18at 18:28; Start 07/09/18 at 14:15 Lidocaine/Sodium Bicarbonate (Buffered Lidocaine 1%) 3 ml STK-MED ONCE .ROUTE ; Start 07/11/18 at 13:06; Stop 07/11/18 at 13:07; Status DC Iohexol (Omnipaque 240 Mg/ml) 50 ml STK-MED ONCE .ROUTE ; Start 07/11/18 at 13:06; Stop 07/11/18 at 13:07; Status DC Midazolam HCl (Versed) 5 mg STK-MED ONCE .ROUTE ; Start 07/11/18 at 13:07; Stop 07/11/18 at 13:08; Status DC Fentanyl Citrate (Fentanyl 5ml Vial) 250 mcg STK-MED ONCE .ROUTE ; Start 07/11/18 at 13:08; Stop 07/11/18 at 13:09; Status DC Cefazolin Sodium 50 ml @ 100 mls/hr STAT ONCE IV ; Start 07/11/18 at 13:45; Stop 07/11/18 at 14:14; Status DC Fentanyl Citrate (Fentanyl 5ml Vial) 50 mcg 1X ONCE IV Last administered on 07/11/18at 13:45; Start 07/11/18 at 13:45; Stop 07/11/18 at 13:49; Status DC Ondansetron HCl (Zofran) 4 mg PRN Q6HRS PRN IV NAUSEA/VOMITING; Start 07/12/18 at 07:00; Stop 07/12/18 at 20:00 Fentanyl Citrate (Fentanyl 2ml Vial) 25 mcg PRN Q5MIN PRN IV MILD PAIN 1-3; Start 07/12/18 at 07:00; Stop 07/12/18 at 20:00 Fentanyl Citrate (Fentanyl 2ml Vial) 50 mcg PRN Q5MIN PRN IV MODERATE TO SEVERE PAIN; Start 07/12/18 at 07:00; Stop 07/12/18 at 20:00 Morphine Sulfate (Morphine Sulfate) 1 mg PRN Q10MIN PRN IV SEVERE PAIN 7-10; Start 07/12/18 at 07:00; Stop 07/12/18 at 20:00 Ringer's Solution 1,000 ml @ 30 mls/hr Q24H IV ; Start 07/12/18 at 07:00; Stop 07/12/18 at 09:46; Status DC Lidocaine HCl (Xylocaine-Mpf 1% 2ml Vial) 2 ml PRN 1X PRN ID PRIOR TO IV START; Start 07/12/18 at 07:00; Stop 07/12/18 at 20:00 Hydromorphone HCl (Dilaudid) 0.5 mg PRN Q10MIN PRN IV SEV PAIN, Second choice; Start 07/12/18 at 07:00; Stop 07/12/18 at 20:00 Fentanyl (Duragesic 25mcg/ Hr Patch) 1 patch Q3DAYS TD Last administered on 07/11/18at 16:55; Start 07/11/18 at 15:15 Ibuprofen (Motrin) 600 mg PRN Q6HRS PRN PO INFLAMMATION; Start 07/11/18 at 19:30 Guaifenesin (Mucinex) 1,200 mg BID PO Last administered on 07/12/18at 08:48; Start 07/11/18 at 21:00 Levofloxacin/ Dextrose 150 ml @ 100 mls/hr Q24H IV Last administered on 07/12/18at 09:51; Start 07/12/18 at 09:00 Active Scripts Active Augmentin 875-125 Tablet (Amoxicillin/Potassium Clav) 1 Each Tablet 1 Tab PO BID Tramadol Hcl 50 Mg Tablet 50 Mg PO Q6HRS PRN Prednisone (Prednisone) 10 Mg Tablet 10 Mg PO UD Take 3 tablets by mouth twice a day for 3 days, then take 2 tablets by mouth twice a day for 3 days, then take 1 tablet by mouth twice a day for 3 days, then take 1 tablet by mouth daily x 3 days, then stop. Ativan (Lorazepam) 1 Mg Tablet 1 Mg PO BID Guaifenesin 100 Mg/5 Ml Liquid 200 Mg PO PRN Q4HRS PRN 30 Days Tylenol (Acetaminophen) 325 Mg Tablet 650 Mg PO PRN Q4HRS PRN 10 Days Ventolin Hfa Inhaler (Albuterol Sulfate) 18 Gm Hfa.aer.ad 2 Puff INH Q4HRS Reglan (Metoclopramide Hcl) 10 Mg Tablet 0.5 Tab PO QID 30 Days Albuterol Sulfate Neb Soln (Albuterol Sulfate) 2.5 Mg/3 Ml Vial.neb 1 Vial NEB PRN Q4HRS Reported Furosemide 40 Mg Tablet 1 Tab PO DAILY Vitamin D3 (Cholecalciferol (Vitamin D3)) 5,000 Unit Tablet 5,000 Unit PO DAILY Potassium Chloride 20 Meq Tablet.er 20 Meq PO DAILY Protonix (Pantoprazole Sodium) 20 Mg Tablet.dr 1 Tab PO DAILY Flonase Allergy Relief (Fluticasone Propionate) 9.9 Ml [place].susp 2 Sprays NS DAILY Atorvastatin Calcium 10 Mg Tablet 10 Mg PO HS Symbicort 160-4.5 Mcg Inhaler (Budesonide/Formoterol Fumarate) 10.2 Gm Hfa.aer.ad 2 Puff IH BID Vitals/I & O Vital Sign - Last 24 Hours 07/11/18 07/11/18 07/11/1830/19 10:39 11:00 13:45 15:00 Temp 98.6 99.1 98.6 99.1 Pulse 114 123 Resp 18 26 20 B/P (MAP) 139/81 (100) 104/64 (77) Pulse Ox 100 100 71 O2 Delivery Nasal Cannula Nasal Cannula Nasal Cannula O2 Flow Rate 3.0 4.0 4.0 07/11/18 07/11/18 07/11/18 07/11/18 15:05 15:08 18:28 19:28 Temp 100.7 100.7 Pulse 124 Resp 20 B/P (MAP) 112/66 (81) Pulse Ox 87 95 O2 Delivery Nasal Cannula Nasal Cannula Nasal Cannula Nasal Cannula O2 Flow Rate 5.0 3.0 4.0 4.0 07/11/18 07/11/18 07/11/18 07/11/18 19:30 20:55 21:49 22:02 O2 Delivery Nasal Cannula Nasal Cannula Nasal Cannula Nasal Cannula O2 Flow Rate 4.0 4.0 07/11/18 07/11/18 07/12/18 07/12/18 22:47 23:02 03:32 07:00 Temp 100.6 98.3 98.2 100.6 98.3 98.2 Pulse 124 95 90 Resp 22 18 18 B/P (MAP) 133/63 (86) 126/86 (99) 121/84 (96) Pulse Ox 96 96 100 99 O2 Delivery Nasal Cannula Nasal Cannula Nasal Cannula Nasal Cannula O2 Flow Rate 4.0 4.0 4.0 4.0 07/12/18 08:30 Pulse Ox 100 O2 Delivery Nasal Cannula O2 Flow Rate 4.0 Intake and Output 07/11/18 07/11/18 07/12/18 14:59 22:59 06:59 Intake Total 420 ml Output Total 375 ml 325 ml Balance -375 ml 95 ml SHELLY GOOD MD July 12, 2018 10:05
[2018-07-12] MEDS ORDERED: RIVAROXABAN 15 MG TABLET. PO SCH (10:30)
[2018-07-12] MEDS ORDERED: FENT1PAT15 TD (11:07)
[2018-07-12] MEDS ORDERED: RIVA20TA2 PO (11:07)
[2018-07-12] MEDS ORDERED: RIVA15TA PO (11:07)
[2018-07-12] MEDS ORDERED: DOXY100T PO (11:07)
[2018-07-12] MEDS ORDERED: TRAM50TA PO (11:08)
[2018-07-12] MEDS ORDERED: LORA-434 PO (11:08)
--- NOTE | 2018-07-12 11:11 | SNU/HH DC ---
DISCHARGE ORDERS DISCHARGE INFORMATION: DISCHARGE DATE: July 12, 2018 FINAL DIAGNOSIS Problems Medical Problems: (1) COPD with exacerbation Status: Acute (2) Hyperglycemia Status: Acute (3) Pulmonary embolism Status: Acute (4) Shortness of breath Status: Acute CONDITION ON DISCHARGE: Stable CODE STATUS: Code Status: Full SENIOR LIVING: SNF STAY <30 DAYS: Yes POST DISCHARGE ORDERS: ACTIVITY ORDERS: Activity as tolerated WEIGHT BEARING STATUS: As tolerated DIET AFTER DISCHARGE: Cardiac WOUND/INCISION CARE: No wound care needed CHECKS AFTER DISCHARGE: CHECKS AFTER DISCHARGE: Check blood press - daily, Check blood sugar, ac/hs, Check your Temp as needed, Weigh Yourself Daily FOLLOW-UP: PHYSICIAN FOLLOW-UP: Pulmonology TREATMENT/EQUIPMENT ORDERS: ADAPTIVE EQUIPMENT NEEDED: None RESPIRATORY EQUIPMENT NEEDED: Oxygen Physical Therapy For: Evalulation/Treatment Occupational Therapy For: Evaluation/Treatment Speech Language Pathology For: Evaluation/Treatment DISCHARGE MEDICATIONS: Home Meds Active Scripts Tramadol Hcl (TRAMADOL HCL) 50 Mg Tablet, 50 MG PO PRN Q6HRS PRN for PAIN for 6 Days, #24 TAB Prov:KIRSTIE TREVINO MD 07/12/18 Lorazepam (ATIVAN) 1 Mg Tablet, 1 MG PO PRN BID PRN for ANXIETY / AGITATION for 6 Days, #12 TAB Prov:KIRSTIE TREVINO MD 07/12/18 Rivaroxaban (XARELTO) 20 Mg Tablet, 20 MG PO DAILY for PE for 30 Days, #30 TAB START on 07/20/2018 Prov:KIRSTIE TREVINO MD 07/12/18 Fentanyl (FENTANYL 25mcg/hr) 1 Each Patch.td72, 1 PATCH TD Q3DAYS for T9 compression fx for 30 Days, #10 PATCH Prov:KIRSTIE TREVINO MD 07/12/18 Rivaroxaban (XARELTO) 15 Mg Tablet, 15 MG PO BIDWMEALS for PE for 7 Days, #14 TAB On Day 8 transition to 20mg Xarelto Prov:KIRSTIE TREVINO MD 07/12/18 Doxycycline Hyclate (DOXYCYCLINE HYCLATE) 100 Mg Tablet, 100 MG PO BID for Bacteremia for 5 Days, #10 TAB Prov:KIRSTIE TREVINO MD 07/12/18 Prednisone (PREDNISONE ) 10 Mg Tablet, 10 MG PO UD for PREDNISONE TAPER, #39 TAB 0 Refills Take 3 tablets by mouth twice a day for 3 days, then take 2 tablets by mouth twice a day for 3 days, then take 1 tablet by mouth twice a day for 3 days, then take 1 tablet by mouth daily x 3 days, then stop. Prov:PATRIA SHIELDS MD 06/25/18 Guaifenesin (GUAIFENESIN) 100 Mg/5 Ml Liquid, 200 MG PO PRN Q4HRS PRN for COUGH for 30 Days, #120 LIQUID Prov:TOMAS BAIG MD 05/30/18 Acetaminophen (TYLENOL) 325 Mg Tablet, 650 MG PO PRN Q4HRS PRN for TEMP OVER 100.4F OR MILD PAIN for 10 Days, #30 TAB Prov:TOMAS BAIG MD 05/30/18 Albuterol Sulfate (VENTOLIN HFA INHALER) 18 Gm Hfa.aer.ad, 2 PUFF INH Q4HRS for FOR ASTHMA, #1 INHALER 0 Refills Prov:SD JON APRN 05/10/18 Metoclopramide Hcl (REGLAN) 10 Mg Tablet, 0.5 TAB PO QID for gerd for 30 Days, #60 TAB Prov:TOMAS BAIG MD 02/14/18 Albuterol Sulfate (ALBUTEROL SULFATE NEB SOLN) 2.5 Mg/3 Ml Vial.neb, 1 VIAL NEB PRN Q4HRS, #50 VIAL Prov:TEVIN GOODWIN MD 07/10/17 Reported Medications Furosemide (FUROSEMIDE) 40 Mg Tablet, 1 TAB PO DAILY for water, #30 TAB 5 Refills 06/20/18 Cholecalciferol (Vitamin D3) (VITAMIN D3) 5,000 Unit Tablet, 5000 UNIT PO DAILY for supplement, TAB 03/15/18 Potassium Chloride (POTASSIUM CHLORIDE) 20 Meq Tablet.er, 20 MEQ PO DAILY for supplement, TAB.SR 01/13/18 Pantoprazole Sodium (PROTONIX) 20 Mg Tablet.dr, 1 TAB PO DAILY, #30 TAB 11/18/17 Fluticasone Propionate (Flonase Allergy Relief) 9.9 Ml [place].susp, 2 SPRAYS NS DAILY, BOTTLE 11/18/17 Atorvastatin Calcium (ATORVASTATIN CALCIUM) 10 Mg Tablet, 10 MG PO HS for FOR CHOLESTEROL, #30 TAB 0 Refills 08/21/17 Budesonide/Formoterol Fumarate (SYMBICORT 160-4.5 MCG INHALER) 10.2 Gm Hfa.aer.ad, 2 PUFF IH BID, #10.6 GM 3 Refills 09/21/15 Discontinued Scripts Amoxicillin/Potassium Clav (AUGMENTIN 875-125 TABLET) 1 Each Tablet, 1 TAB PO BID for bronchitis, #12 TAB Prov:PATRIA SHIELDS MD 06/25/18 KIRSTIE TREVINO MD July 12, 2018 11:11
--- NOTE | 2018-07-12 11:16 | PDOC3 ---
Discharge Summary Visit Information Date of Admission: July 04, 2018 Date of Discharge: July 12, 2018 Admitting Diagnosis: T9 compression fracture, PE, COPD exacerbation Final Diagnosis Problems Medical Problems: (1) COPD with exacerbation Status: Acute (2) Hyperglycemia Status: Acute (3) Pulmonary embolism Status: Acute (4) Shortness of breath Status: Acute Brief Hospital Course Allergies Allergies Coded Allergies Type Severity Reaction Last Updated Verified acetaminophen Allergy Intermediate TAKES NORCO AT HOME 01/29/18 Yes Vital Signs Vital Signs Date Time Temp Pulse Resp B/P (MAP) Pulse Ox O2 Delivery O2 Flow Rate FiO2 07/12/18 08:30 100 Nasal Cannula 4.0 07/12/18 07:00 98.2 90 18 121/84 (96) 98.2 Lab Results Laboratory Tests Test 07/10/18 12:00 07/10/18 17:11 07/10/18 20:58 07/11/18 07:13 Glucose (Fingerstick) 268 mg/dL (70-99) 161 mg/dL (70-99) 253 mg/dL (70-99) 131 mg/dL (70-99) Test 07/11/18 08:35 07/11/18 11:59 07/11/18 17:13 07/11/18 20:58 White Blood Count 5.4 x10^3/uL (4.0-11.0) Red Blood Count 3.64 x10^6/uL (4.30-5.70) Hemoglobin 10.7 g/dL (13.0-17.5) Hematocrit 31.6 % (39.0-53.0) Mean Corpuscular Volume 87 fL (79-100) Mean Corpuscular Hemoglobin 29 pg (25-35) Mean Corpuscular Hemoglobin Concent 34 g/dL (31-37) Red Cell Distribution Width 15.6 % (11.5-14.5) Platelet Count 128 x10^3/uL (140-400) Neutrophils (%) (Auto) 90 % (31-73) Lymphocytes (%) (Auto) 5 % (24-48) Monocytes (%) (Auto) 4 % (0-9) Eosinophils (%) (Auto) 1 % (0-3) Basophils (%) (Auto) 0 % (0-3) Neutrophils # (Auto) 4.9 x10^3uL (1.8-7.7) Lymphocytes # (Auto) 0.3 x10^3/uL (1.0-4.8) Monocytes # (Auto) 0.2 x10^3/uL (0.0-1.1) Eosinophils # (Auto) 0.0 x10^3/uL (0.0-0.7) Basophils # (Auto) 0.0 x10^3/uL (0.0-0.2) Sodium Level 143 mmol/L (136-145) Potassium Level 4.1 mmol/L (3.5-5.1) Chloride Level 101 mmol/L (98-107) Carbon Dioxide Level 37 mmol/L (21-32) Anion Gap 5 (6-14) Blood Urea Nitrogen 13 mg/dL (8-26) Creatinine 0.9 mg/dL (0.7-1.3) Estimated GFR (Cockcroft-Gault) 104.5 Glucose Level 130 mg/dL (70-99) Calcium Level 9.2 mg/dL (8.5-10.1) Glucose (Fingerstick) 115 mg/dL (70-99) 187 mg/dL (70-99) 248 mg/dL (70-99) Test 07/12/18 02:40 07/12/18 07:14 White Blood Count 6.8 x10^3/uL (4.0-11.0) Red Blood Count 3.57 x10^6/uL (4.30-5.70) Hemoglobin 10.3 g/dL (13.0-17.5) Hematocrit 31.2 % (39.0-53.0) Mean Corpuscular Volume 87 fL (79-100) Mean Corpuscular Hemoglobin 29 pg (25-35) Mean Corpuscular Hemoglobin Concent 33 g/dL (31-37) Red Cell Distribution Width 15.8 % (11.5-14.5) Platelet Count 142 x10^3/uL (140-400) Neutrophils (%) (Auto) 92 % (31-73) Lymphocytes (%) (Auto) 3 % (24-48) Monocytes (%) (Auto) 5 % (0-9) Eosinophils (%) (Auto) 0 % (0-3) Basophils (%) (Auto) 0 % (0-3) Neutrophils # (Auto) 6.2 x10^3uL (1.8-7.7) Lymphocytes # (Auto) 0.2 x10^3/uL (1.0-4.8) Monocytes # (Auto) 0.3 x10^3/uL (0.0-1.1) Eosinophils # (Auto) 0.0 x10^3/uL (0.0-0.7) Basophils # (Auto) 0.0 x10^3/uL (0.0-0.2) Segmented Neutrophils % 91 % (35-66) Band Neutrophils % 1 % (0-9) Lymphocytes % 3 % (24-48) Monocytes % 4 % (0-10) Metamyelocytes % 1 % (0-0) Nucleated Red Blood Cells 2 Platelet Estimate Adequate (ADEQUATE) Sodium Level 139 mmol/L (136-145) Potassium Level 4.4 mmol/L (3.5-5.1) Chloride Level 98 mmol/L (98-107) Carbon Dioxide Level 36 mmol/L (21-32) Anion Gap 5 (6-14) Blood Urea Nitrogen 18 mg/dL (8-26) Creatinine 1.1 mg/dL (0.7-1.3) Estimated GFR (Cockcroft-Gault) 82.9 Glucose Level 134 mg/dL (70-99) Calcium Level 9.5 mg/dL (8.5-10.1) Glucose (Fingerstick) 141 mg/dL (70-99) Laboratory Tests Test 07/11/18 11:59 07/11/18 17:13 07/11/18 20:58 07/12/18 02:40 Glucose (Fingerstick) 115 mg/dL (70-99) 187 mg/dL (70-99) 248 mg/dL (70-99) White Blood Count 6.8 x10^3/uL (4.0-11.0) Red Blood Count 3.57 x10^6/uL (4.30-5.70) Hemoglobin 10.3 g/dL (13.0-17.5) Hematocrit 31.2 % (39.0-53.0) Mean Corpuscular Volume 87 fL (79-100) Mean Corpuscular Hemoglobin 29 pg (25-35) Mean Corpuscular Hemoglobin Concent 33 g/dL (31-37) Red Cell Distribution Width 15.8 % (11.5-14.5) Platelet Count 142 x10^3/uL (140-400) Neutrophils (%) (Auto) 92 % (31-73) Lymphocytes (%) (Auto) 3 % (24-48) Monocytes (%) (Auto) 5 % (0-9) Eosinophils (%) (Auto) 0 % (0-3) Basophils (%) (Auto) 0 % (0-3) Neutrophils # (Auto) 6.2 x10^3uL (1.8-7.7) Lymphocytes # (Auto) 0.2 x10^3/uL (1.0-4.8) Monocytes # (Auto) 0.3 x10^3/uL (0.0-1.1) Eosinophils # (Auto) 0.0 x10^3/uL (0.0-0.7) Basophils # (Auto) 0.0 x10^3/uL (0.0-0.2) Segmented Neutrophils % 91 % (35-66) Band Neutrophils % 1 % (0-9) Lymphocytes % 3 % (24-48) Monocytes % 4 % (0-10) Metamyelocytes % 1 % (0-0) Nucleated Red Blood Cells 2 Platelet Estimate Adequate (ADEQUATE) Sodium Level 139 mmol/L (136-145) Potassium Level 4.4 mmol/L (3.5-5.1) Chloride Level 98 mmol/L (98-107) Carbon Dioxide Level 36 mmol/L (21-32) Anion Gap 5 (6-14) Blood Urea Nitrogen 18 mg/dL (8-26) Creatinine 1.1 mg/dL (0.7-1.3) Estimated GFR (Cockcroft-Gault) 82.9 Glucose Level 134 mg/dL (70-99) Calcium Level 9.5 mg/dL (8.5-10.1) Test 07/12/18 07:14 Glucose (Fingerstick) 141 mg/dL (70-99) Brief Hospital Course 57 year old AA male who presents to the ER with complaints of shortness of breath, productive cough with thick clear sputum, and increased need for O2 since last night. Pt states he has a hx of COPD, emphysema, and CHF. He denies any chest pain he reports mid back pain that increases with breathing. He denies any fever, nausea, vomiting, diarrhea, abdominal pain, sore throat, or ear pain. Pt states he has had to increase his oxygen at home to 4L because of his saturation being in the 80's. On arrival, pt's room air O2 is 88% with O2 at 2L/NC sat increased to 97-100%.. Thoracic CT showed new T9 compression fracture - unable to tolerate laying flat for MRI or for kyphoplasty Recent PE dx at [place] over a week ago, 2 clots, on anticoagulation now Patient reports constipation resolved. Still short of breath and having back pain. Fentanyl patch helps Blood culture positive for 1 bottle of staph epidermidis, placed on levaquin and doxy, will continue for 5 days with steroid taper Agreeable to SNU placement at healthcare resort Will be difficult, have to d/w IR for kyphoplasty because he needs anticoagulation as well, has been continued on his xarelto which was held 07/08/18. Plan for d/c to [facility] for rehab. F/u in [place] for eventual bullectomy and [facility] for his PE. Stage COPD, end stage. 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 Constipation Back pain - T9 fracture Discharge Information Condition at Discharge: Improved Follow Up: Weeks (2) Disposition/Orders: D/C to Another Facility ([facility]) Scheduled Albuterol Sulfate (Albuterol Sulfate Neb Soln) 2.5 Mg/3 Ml Vial.neb, 1 VIAL NEB PRN Q4HRS, #50 Prescribed by: TEVIN GOODWIN MD on 07/10/17 0144 Last Action: Reviewed on 07/04/181700 by RAI DURANT Albuterol Sulfate (Ventolin Hfa Inhaler) 18 Gm Hfa.aer.ad, 2 PUFF INH Q4HRS for FOR ASTHMA, #1 Ref 0 Prescribed by: Crys Guthrie APRN on 05/10/181919 Last Action: Reviewed on 07/04/181700 by RAI DURANT Atorvastatin Calcium (Atorvastatin Calcium) 10 Mg Tablet, 10 MG PO HS for FOR CHOLESTEROL, #30 Ref 0 (Reported) Entered as Reported by: Romero Bland on 08/21/17 0246 Last Action: Continued on 07/04/181700 by RAI DURANT Budesonide/Formoterol Fumarate (Symbicort 160-4.5 Mcg Inhaler) 10.2 Gm Hfa.aer.ad, 2 PUFF IH BID, #10.6 Ref 3 (Reported) Entered as Reported by: IMELDA PENNY on 09/21/152225 Last Action: HELD on 07/04/181700 by RAI DURANT Cholecalciferol (Vitamin D3) (Vitamin D3) 5,000 Unit Tablet, 5,000 UNIT PO DAILY for supplement, (Reported) Entered as Reported by: DOE NAGY on 03/15/182132 Last Action: Converted on 07/04/181700 by RAI DURANT Doxycycline Hyclate (Doxycycline Hyclate) 100 Mg Tablet, 100 MG PO BID for Bacteremia for 5 Days, #10 Prescribed by: KIRSTIE TREVINO MD on 07/12/18 1107 Fentanyl (FENTANYL 25mcg/hr) 1 Each Patch.td72, 1 PATCH TD Q3DAYS for T9 compression fx for 30 Days, #10 Prescribed by: KIRSTIE TREVINO MD on 07/12/18 1107 Fluticasone Propionate (Flonase Allergy Relief) 9.9 Ml [place].susp, 2 SPRAYS NS DAILY, (Reported) Entered as Reported by: FREDA SUAREZ on 11/18/172350 Last Action: Converted on 07/04/181700 by RAI DURANT Furosemide (Furosemide) 40 Mg Tablet, 1 TAB PO DAILY for water, #30 Ref 5 (Reported) Entered as Reported by: Romero Bland on 06/20/182043 Last Action: Continued on 07/04/181700 by RAI DURANT Metoclopramide Hcl (Reglan) 10 Mg Tablet, 0.5 TAB PO QID for gerd for 30 Days, # 60 Prescribed by: TOMAS BAIG MD on 02/14/18 1437 Last Action: Continued on 07/04/181700 by RAI DURANT Pantoprazole Sodium (Protonix) 20 Mg Tablet.dr, 1 TAB PO DAILY, #30 (Reported) Entered as Reported by: FREDA SUAREZ on 11/18/172350 Last Action: Converted on 07/04/181700 by RAI DURANT Potassium Chloride (Potassium Chloride) 20 Meq Tablet.er, 20 MEQ PO DAILY for supplement, (Reported) Entered as Reported by: NANCY CHAPMAN on 01/13/182020 Last Action: Converted on 07/04/181700 by RAI DURANT Prednisone (Prednisone ) 10 Mg Tablet, 10 MG PO UD for PREDNISONE TAPER, #39 Ref 0 Take 3 tablets by mouth twice a day for 3 days, then take 2 tablets by mouth twice a day for 3 days, then take 1 tablet by mouth twice a day for 3 days, then take 1 tablet by mouth daily x 3 days, then stop. Prescribed by: PATRIA SHIELDS on 06/25/1815 Last Action: HELD on 07/04/181700 by RAI DURANT Rivaroxaban (Xarelto) 15 Mg Tablet, 15 MG PO BIDWMEALS for PE for 7 Days, #14 On Day 8 transition to 20mg Xarelto Prescribed by: KIRSTIE TREVINO MD on 07/12/18 1107 Rivaroxaban (Xarelto) 20 Mg Tablet, 20 MG PO DAILY for PE for 30 Days, #30 START on 07/20/2018 Prescribed by: KIRSTIE TREVINO MD on 07/12/18 1107 Scheduled PRN Acetaminophen (Tylenol) 325 Mg Tablet, 650 MG PO PRN Q4HRS PRN for TEMP OVER 100.4F OR MILD PAIN for 10 Days, #30 Prescribed by: TOMAS BAIG MD on 05/30/181644 Last Action: Continued on 07/04/181700 by RAI DURANT Guaifenesin (Guaifenesin) 100 Mg/5 Ml Liquid, 200 MG PO PRN Q4HRS PRN for COUGH for 30 Days, #120 Prescribed by: TOMAS BAIG MD on 05/30/181644 Last Action: HELD on 07/04/181700 by RAI DURANT Lorazepam (Ativan) 1 Mg Tablet, 1 MG PO PRN BID PRN for ANXIETY / AGITATION for 6 Days, #12 Prescribed by: KIRSTIE TREVINO MD on 07/12/18 110 Tramadol Hcl (Tramadol Hcl) 50 Mg Tablet, 50 MG PO PRN Q6HRS PRN for PAIN for 6 Days, #24 Prescribed by: KIRSTIE TREVINO MD on 07/12/18 1108 Discontinued Medications Amoxicillin/Potassium Clav (Augmentin 875-125 Tablet) 1 Each Tablet, 1 TAB PO BID for bronchitis, #12 Prescribed by: PATRIA SHIELDS on 06/25/18 0915 Last Action: HELD on 07/04/18 1701 by KIRSTIE GODOY MD July 12, 2018 11:16
--- NOTE | 2018-07-12 11:16 | NUR ---
SS following up with discharge planning. Discharge orders received for fci unit at [facility], ; fax [phone]. Discharge orders faxed to [facility]. Pt will discharge today and [facility] 1330[facility] Pt, pt's RN, and pt's sister notified.
[2018-07-12 11:20] VITALS: BP 105/76
--- NOTE | 2018-07-12 12:08 | PDOC ---
PULMONARY PROGRESS NOTES Subjective became hypoxic on the table prior to kyphoplasty procedure cancelled 07/11 less soa Vitals Vital Signs Date Time Temp Pulse Resp B/P (MAP) Pulse Ox O2 Delivery O2 Flow Rate FiO2 07/12/18 11:40 100 Nasal Cannula 4.0 07/12/18 11:20 98.2 101 18 105/76 (86) 98.2 ROS: No Nausea General: Alert, No acute distress Lungs: Other (poor air flow) Cardiovascular: S1, S2 Abdomen: Soft, Non-tender Neuro Exam: Alert Extremities: No Edema, Other Skin: Warm Labs Laboratory Tests Test 07/10/18 17:11 07/10/18 20:58 07/11/18 07:13 07/11/18 08:35 Glucose (Fingerstick) 161 mg/dL (70-99) 253 mg/dL (70-99) 131 mg/dL (70-99) White Blood Count 5.4 x10^3/uL (4.0-11.0) Red Blood Count 3.64 x10^6/uL (4.30-5.70) Hemoglobin 10.7 g/dL (13.0-17.5) Hematocrit 31.6 % (39.0-53.0) Mean Corpuscular Volume 87 fL (79-100) Mean Corpuscular Hemoglobin 29 pg (25-35) Mean Corpuscular Hemoglobin Concent 34 g/dL (31-37) Red Cell Distribution Width 15.6 % (11.5-14.5) Platelet Count 128 x10^3/uL (140-400) Neutrophils (%) (Auto) 90 % (31-73) Lymphocytes (%) (Auto) 5 % (24-48) Monocytes (%) (Auto) 4 % (0-9) Eosinophils (%) (Auto) 1 % (0-3) Basophils (%) (Auto) 0 % (0-3) Neutrophils # (Auto) 4.9 x10^3uL (1.8-7.7) Lymphocytes # (Auto) 0.3 x10^3/uL (1.0-4.8) Monocytes # (Auto) 0.2 x10^3/uL (0.0-1.1) Eosinophils # (Auto) 0.0 x10^3/uL (0.0-0.7) Basophils # (Auto) 0.0 x10^3/uL (0.0-0.2) Sodium Level 143 mmol/L (136-145) Potassium Level 4.1 mmol/L (3.5-5.1) Chloride Level 101 mmol/L (98-107) Carbon Dioxide Level 37 mmol/L (21-32) Anion Gap 5 (6-14) Blood Urea Nitrogen 13 mg/dL (8-26) Creatinine 0.9 mg/dL (0.7-1.3) Estimated GFR (Cockcroft-Gault) 104.5 Glucose Level 130 mg/dL (70-99) Calcium Level 9.2 mg/dL (8.5-10.1) Test 07/11/18 11:59 07/11/18 17:13 07/11/18 20:58 07/12/18 02:40 Glucose (Fingerstick) 115 mg/dL (70-99) 187 mg/dL (70-99) 248 mg/dL (70-99) White Blood Count 6.8 x10^3/uL (4.0-11.0) Red Blood Count 3.57 x10^6/uL (4.30-5.70) Hemoglobin 10.3 g/dL (13.0-17.5) Hematocrit 31.2 % (39.0-53.0) Mean Corpuscular Volume 87 fL (79-100) Mean Corpuscular Hemoglobin 29 pg (25-35) Mean Corpuscular Hemoglobin Concent 33 g/dL (31-37) Red Cell Distribution Width 15.8 % (11.5-14.5) Platelet Count 142 x10^3/uL (140-400) Neutrophils (%) (Auto) 92 % (31-73) Lymphocytes (%) (Auto) 3 % (24-48) Monocytes (%) (Auto) 5 % (0-9) Eosinophils (%) (Auto) 0 % (0-3) Basophils (%) (Auto) 0 % (0-3) Neutrophils # (Auto) 6.2 x10^3uL (1.8-7.7) Lymphocytes # (Auto) 0.2 x10^3/uL (1.0-4.8) Monocytes # (Auto) 0.3 x10^3/uL (0.0-1.1) Eosinophils # (Auto) 0.0 x10^3/uL (0.0-0.7) Basophils # (Auto) 0.0 x10^3/uL (0.0-0.2) Segmented Neutrophils % 91 % (35-66) Band Neutrophils % 1 % (0-9) Lymphocytes % 3 % (24-48) Monocytes % 4 % (0-10) Metamyelocytes % 1 % (0-0) Nucleated Red Blood Cells 2 Platelet Estimate Adequate (ADEQUATE) Sodium Level 139 mmol/L (136-145) Potassium Level 4.4 mmol/L (3.5-5.1) Chloride Level 98 mmol/L (98-107) Carbon Dioxide Level 36 mmol/L (21-32) Anion Gap 5 (6-14) Blood Urea Nitrogen 18 mg/dL (8-26) Creatinine 1.1 mg/dL (0.7-1.3) Estimated GFR (Cockcroft-Gault) 82.9 Glucose Level 134 mg/dL (70-99) Calcium Level 9.5 mg/dL (8.5-10.1) Test 07/12/18 07:14 07/12/18 11:50 Glucose (Fingerstick) 141 mg/dL (70-99) 211 mg/dL (70-99) Laboratory Tests Test 07/11/18 17:13 07/11/18 20:58 07/12/18 02:40 07/12/18 07:14 Glucose (Fingerstick) 187 mg/dL (70-99) 248 mg/dL (70-99) 141 mg/dL (70-99) White Blood Count 6.8 x10^3/uL (4.0-11.0) Red Blood Count 3.57 x10^6/uL (4.30-5.70) Hemoglobin 10.3 g/dL (13.0-17.5) Hematocrit 31.2 % (39.0-53.0) Mean Corpuscular Volume 87 fL (79-100) Mean Corpuscular Hemoglobin 29 pg (25-35) Mean Corpuscular Hemoglobin Concent 33 g/dL (31-37) Red Cell Distribution Width 15.8 % (11.5-14.5) Platelet Count 142 x10^3/uL (140-400) Neutrophils (%) (Auto) 92 % (31-73) Lymphocytes (%) (Auto) 3 % (24-48) Monocytes (%) (Auto) 5 % (0-9) Eosinophils (%) (Auto) 0 % (0-3) Basophils (%) (Auto) 0 % (0-3) Neutrophils # (Auto) 6.2 x10^3uL (1.8-7.7) Lymphocytes # (Auto) 0.2 x10^3/uL (1.0-4.8) Monocytes # (Auto) 0.3 x10^3/uL (0.0-1.1) Eosinophils # (Auto) 0.0 x10^3/uL (0.0-0.7) Basophils # (Auto) 0.0 x10^3/uL (0.0-0.2) Segmented Neutrophils % 91 % (35-66) Band Neutrophils % 1 % (0-9) Lymphocytes % 3 % (24-48) Monocytes % 4 % (0-10) Metamyelocytes % 1 % (0-0) Nucleated Red Blood Cells 2 Platelet Estimate Adequate (ADEQUATE) Sodium Level 139 mmol/L (136-145) Potassium Level 4.4 mmol/L (3.5-5.1) Chloride Level 98 mmol/L (98-107) Carbon Dioxide Level 36 mmol/L (21-32) Anion Gap 5 (6-14) Blood Urea Nitrogen 18 mg/dL (8-26) Creatinine 1.1 mg/dL (0.7-1.3) Estimated GFR (Cockcroft-Gault) 82.9 Glucose Level 134 mg/dL (70-99) Calcium Level 9.5 mg/dL (8.5-10.1) Test 07/12/18 11:50 Glucose (Fingerstick) 211 mg/dL (70-99) Medications Active Scripts Medications Dose Route/Sig Max Daily Dose Days Date Category Dose Instructions Augmentin 875-125 Tablet (Amoxicillin/Potassium Clav) 1 Each Tablet 1 Tab PO BID 06/25/18 Rx Tramadol Hcl 50 Mg Tablet 50 Mg PO Q6HRS PRN 06/25/18 Rx Prednisone (Prednisone) 10 Mg Tablet 10 Mg PO UD 06/25/18 Rx Take 3 tablets by mouth twice a day for 3 days, then take 2 tablets by mouth twice a day for 3 days, then take 1 tablet by mouth twice a day for 3 days, then take 1 tablet by mouth daily x 3 days, then stop. Furosemide 40 Mg Tablet 1 Tab PO DAILY 06/20/18 Reported Ativan (Lorazepam) 1 Mg Tablet 1 Mg PO BID 06/15/18 Rx Guaifenesin 100 Mg/5 Ml Liquid 200 Mg PO PRN Q4HRS PRN 30 05/30/18 Rx Tylenol (Acetaminophen) 325 Mg Tablet 650 Mg PO PRN Q4HRS PRN 10 05/30/18 Rx Ventolin Hfa Inhaler (Albuterol Sulfate) 18 Gm Hfa.aer.ad 2 Puff INH Q4HRS 05/10/18 Rx Vitamin D3 (Cholecalciferol (Vitamin D3)) 5,000 Unit Tablet 5,000 Unit PO DAILY 03/15/18 Reported Reglan (Metoclopramide Hcl) 10 Mg Tablet 0.5 Tab PO QID 30 02/14/18 Rx Potassium Chloride 20 Meq Tablet.er 20 Meq PO DAILY 01/13/18 Reported Protonix (Pantoprazole Sodium) 20 Mg Tablet.dr 1 Tab PO DAILY 11/18/17 Reported Flonase Allergy Relief (Fluticasone Propionate) 9.9 Ml [place].susp 2 Sprays NS DAILY 11/18/17 Reported Atorvastatin Calcium 10 Mg Tablet 10 Mg PO HS 08/21/17 Reported Albuterol Sulfate Neb Soln (Albuterol Sulfate) 2.5 Mg/3 Ml Vial.neb 1 Vial NEB PRN Q4HRS 07/10/17 Rx Symbicort 160-4.5 Mcg Inhaler (Budesonide/Formoterol Fumarate) 10.2 Gm Hfa.aer.ad 2 Puff IH BID 09/21/15 Reported Comments reviewed, 05/30/18 ct 1. Severe emphysema with a prominent bullous component on the left. 2. Chronic pleural/parenchymal scarring. 3. New small spiculated opacity in the right lower lobe which may be inflammatory or neoplastic. CT follow-up is suggested. Impression . IMPRESSION: 1. [id number] hypoxemic hypercapnic respiratory failure. 2. Acute exacerbation of chronic obstructive pulmonary disease./ end stage 3. Recent pulmonary embolism diagnosed at [facility] approximately a week ago. Rx with Xarelto. 4. Epistaxis and left subconjunctival hemorrhage, resulting from cough and increased pressure. resolved 5. Hypertension. 6. Depression. 7. Tobacco dependence, in remission. 8. abnl ct of chest, rll density 9. allergic rhinitis 10. compressive fracture lower back 07/07 IMPRESSION: Resolution of previously seen spiculated nodule consistent with a benign inflammatory or infectious nodule. There is a new small groundglass lung infiltrate within the posterior right lower lobe most likely representing atelectasis. Stable compression fractures of T1 and T6. Increase in compression fracture of the superior endplate of T12. New compression fracture of T9. The latter 2 findings are stable from CT study of the thoracic spine performed on July 06, 2018. Note-only 11 ribs. Plan . d/w patient/ IR Patient is at very high risk of respiratory failure with sedation/ may need trach/vent He does not want to persue kyphoplasty as he does not want to be on vent cancelled surgery conservative Rx BIPAP qhs and prn decrease pred nebs continue same otherwise Resume AntiCoag with Xarelto ok with skill d/w PCP VIN MEAD MD July 12, 2018 12:08
[2018-07-12] MEDS: ANTI-COAG MONITOR BY PHARMACY. MC PRN ×2 (12:23→12:31)
--- NOTE | 2018-07-12 14:45 | NUR ---
Discharge Note: OLVIN [facility]ES [employer] Discharge instructions and discharge home medications reviewed with Other facility and a copy given. All questions have been answered and understanding verbalized. The following instructions and handouts were given: medication list, labs, written prescriptions Discontinued lines and drains: discontinued IV at left foremrm with dressing intact. [facility] to [facility] with transportation via wheelchair van
== END 2018-07-12 13:45 | DRG 189 ==
LOC: ER 16:02 → ED HOLD 16:32 → 2 NORTH 20:27
PROVIDERS: ADMIT Internal Medicine; ATTEND Internal Medicine
PROC: 5A09357 Assistance with Respiratory Ventilation, Less than 24 Consecutive Hours, Continuous Positive Airway Pressure (ICD-10-PCS; principal; 2018-07-04)
DX: J96.21 Acute and chronic respiratory failure with hypoxia (principal); J96.22 Acute and chronic respiratory failure with hypercapnia; E11.65 Type 2 diabetes mellitus with hyperglycemia; E78.5 Hyperlipidemia, unspecified; F17.201 Nicotine dependence, unspecified, in remission; F32.9 Major depressive disorder, single episode, unspecified; H11.32 Conjunctival hemorrhage, left eye; I50.9 Heart failure, unspecified; I11.0 Hypertensive heart disease with heart failure; J43.9 Emphysema, unspecified; K21.9 Gastro-esophageal reflux disease without esophagitis; K59.00 Constipation, unspecified; R04.0 Epistaxis; G89.29 Other chronic pain; M19.90 Unspecified osteoarthritis, unspecified site; Z51.5 Encounter for palliative care; J30.9 Allergic rhinitis, unspecified; T38.0X5A Adverse effect of glucocorticoids and synthetic analogues, initial encounter; Z53.9 Procedure and treatment not carried out, unspecified reason; Z79.01 Long term (current) use of anticoagulants; Z79.52 Long term (current) use of systemic steroids; Z82.49 Family history of ischemic heart disease and other diseases of the circulatory system; Z87.01 Personal history of pneumonia (recurrent); Z99.81 Dependence on supplemental oxygen; Z79.899 Other long term (current) drug therapy; Y92.89 Other specified places as the place of occurrence of the external cause; Z86.711 Personal history of pulmonary embolism; S22.079D Unspecified fracture of T9-T10 vertebra, subsequent encounter for fracture with routine healing
CPT/HCPCS: 36415; 36600; 71045; 71250; 72020; 72128; 72146; 80048; 80053; 81001; 82553; 82805; 82962; 83605; 83735; 83880; 84443; 84484; 85007; 85025; 85610; 85730; 87040; 87077; 87205; 93005; 94640; 94660; 94760; 96361; 96374; J0696; J1650; J1815; J1956; J2930; J3010; J7030; J7512; J7613; J7620; J8597; 97116; 97535; 99285-25

== ENCOUNTER 2018-07-13 07:54 | Emergency (ER) | payer MEDICARE, MEDICAID ==
[~2018-07-13] VITALS: Ht 180.3 cm; Wt 74.8 kg
[~2018-07-13 07:54] MED LIST changes: +FENT1PAT15 TD; +RIVA15TA PO; +RIVA20TA2 PO
--- NOTE | 2018-07-13 08:26 | PHYS DOC ---
Past Medical History Past Medical History: Bronchitis, CHF, COPD, Heart Disease, Hypertension, Other Additional Past Medical Histor: EMPHYSEMA-on 3 L NC, "prediabetes" Past Surgical History: Other Additional Past Surgical Histo: HERNIA REPAIR Alcohol Use: None Drug Use: None Adult General Chief Complaint Chief Complaint: NOSEBLEED HPI HPI Patient is a 58 year old male with hx of Chronic respiratory failure, COPD, bullous emphysema, recent PE on Xarelto, chronic bronchitis and hypertension who presents to the ED today complaining of nose bleeding specifically the right nose that has been going on since yesterday. Patient states it is a slow trickle of blood. He states he was seen in the ED yesterday but we cannot find any notes. He is on oxygen 3 L of states it is had to put pressure on his nose when he needs to breath. Denies any trauma. Review of Systems Review of Systems Constitutional: Denies fever or chills [] Eyes: Denies change in visual acuity, redness, or eye pain [] HENT: Reports nose bleeding right nose. Denies nasal congestion or sore throat [] Respiratory: Reports chronic cough and shortness of breath Cardiovascular: No additional information not addressed in HPI [] GI: Denies abdominal pain, nausea, vomiting, bloody stools or diarrhea [] : Denies dysuria or hematuria [] Musculoskeletal: Denies back pain or joint pain [] Integument: Denies rash or skin lesions [] Neurologic: Denies headache, focal weakness or sensory changes [] Current Medications Current Medications Current Medications Medications (Trade) Dose Ordered Sig/Candy Start Time Stop Time Status Last Admin Dose Admin Albuterol/ Ipratropium (Duoneb) 3 ml 1X ONCE 07/13/18 08:45 07/13/18 08:46 DC Oxymetazoline HCl (Afrin) 2 spray 1X ONCE 07/13/18 08:30 07/13/18 08:31 DC 07/13/18 08:56 2 SPRAY Allergies Allergies Allergies Coded Allergies Type Severity Reaction Last Updated Verified acetaminophen Allergy Intermediate TAKES NORCO AT HOME 01/29/18 Yes Physical Exam Physical Exam Constitutional: Well developed, well nourished, no acute distress, non-toxic appearance. [] HENT: Normocephalic, atraumatic, bilateral external ears normal, oropharynx moist, no oral exudates, Right nasal cavity with trace amount of trickling blood. No bleeding to the left nose. Eyes: PERRLA, EOMI, conjunctiva normal, no discharge. [] Neck: Normal range of motion, no tenderness, supple, no stridor. [] Cardiovascular:Heart rate regular rhythm, no murmur [] Lungs & Thorax: slight wheezing to posterior lung bases. hx of COPD Abdomen: Bowel sounds normal, soft, no tenderness, no masses, no pulsatile masses. [] Skin: Warm, dry peeling skin no rash Back: No tenderness, no CVA tenderness. [] Extremities: No tenderness, no cyanosis, no clubbing, ROM intact, no edema. [] Neurologic: Alert and oriented X 3, normal motor function, normal sensory function, no focal deficits noted. [] Psychologic: Affect normal, judgement normal, mood normal. [] Current Patient Data Vital Signs Vital Signs Date Time Temp Pulse Resp B/P (MAP) Pulse Ox O2 Delivery O2 Flow Rate FiO2 07/13/18 10:00 98 26 139/89 (106) 99 Nasal Cannula 3.0 07/13/18 07:57 98.4 98.4 Lab Values Laboratory Tests Test 07/13/18 08:30 07/13/18 08:55 Prothrombin Time 14.3 SEC (11.7-14.0) H Prothrombin Time INR 1.1 (0.8-1.1) PTT 29 SEC (24-38) White Blood Count 7.4 x10^3/uL (4.0-11.0) Red Blood Count 3.89 x10^6/uL (4.30-5.70) L Hemoglobin 10.9 g/dL (13.0-17.5) L Hematocrit 34.0 % (39.0-53.0) L Mean Corpuscular Volume 87 fL (79-100) Mean Corpuscular Hemoglobin 28 pg (25-35) Mean Corpuscular Hemoglobin Concent 32 g/dL (31-37) Red Cell Distribution Width 15.9 % (11.5-14.5) H Platelet Count 169 x10^3/uL (140-400) Neutrophils (%) (Auto) 91 % (31-73) H Lymphocytes (%) (Auto) 3 % (24-48) L Monocytes (%) (Auto) 5 % (0-9) Eosinophils (%) (Auto) 0 % (0-3) Basophils (%) (Auto) 1 % (0-3) Neutrophils # (Auto) 6.7 x10^3uL (1.8-7.7) Lymphocytes # (Auto) 0.2 x10^3/uL (1.0-4.8) L Monocytes # (Auto) 0.4 x10^3/uL (0.0-1.1) Eosinophils # (Auto) 0.0 x10^3/uL (0.0-0.7) Basophils # (Auto) 0.0 x10^3/uL (0.0-0.2) Segmented Neutrophils % 93 % (35-66) H Lymphocytes % 3 % (24-48) L Monocytes % 4 % (0-10) Platelet Estimate Adequate (ADEQUATE) Laboratory Tests 07/13/18 08:55 EKG EKG [] Radiology/Procedures Radiology/Procedures [] Course & Med Decision Making Course & Med Decision Making Pertinent Labs and Imaging studies reviewed. (See chart for details) This is a 58-year-old male patient on Xarelto for recent dx of PE, COPD on o xygen 3 L presenting to the ED today with nose bleeding since yesterday. No trouble to the ED patient had trace amount of blood from the right nasal cavity. Afrin was used to stop the bleeding completely. Patient's hemoglobin is 10.9 with hematocrit of 34.0, this is around his baseline. PT 14.3, INR 1.1 and a PTT 29. Patient state they tried using humidified oxygen and that made him have a running nose and worsen the bleeding. [facility] Provided return precautions and discharged in stable condition. Instructed to follow-up with his own PCP, supervisor molding and ENT next week. Dragon Disclaimer Dragon Disclaimer This electronic medical record was generated, in whole or in part, using a voice recognition dictation system. Departure Departure Impression: Primary Impression: Epistaxis Disposition: 01 HOME, SELF-CARE Condition: STABLE Referrals: UNKNOWN PCP NAME (PCP) RADHA SOLITARIO MD follow up next week SCOTT COOK MD follow up next week Patient Instructions: Nosebleed Additional Instructions: You were evaluated in the emergency room for nose bleeding. Please follow up with your doctor in 1 week as well as the provided speciality doctors. SD JON APRN 1, 2019 08:26
[2018-07-13] MEDS ORDERED: OXYMETAZOLINE 0.05% NASAL SPRAY 30ML BOTTLE. NS ONE (08:30)
[2018-07-13] MEDS ORDERED: IPRATRPIUM/ALBUTEROL 0.5/2.5MG 3 ML NEBU. NEB ONE (08:45)
[2018-07-13 09:10] LABS: BASO % 1 % (0-3); EOS % 0 % (0-3); HEMOGLOBIN 10.9 g/dL (13.0-17.5); LYMPH # 0.2 x10^3/uL (1.0-4.8); LYMPH % 3 % (24-48); MEAN CORPUSCULAR HEMOGLOBIN 28 pg (25-35); MEAN CORPUSCULAR HGB CONC 32 g/dL (31-37); MEAN CORPUSCULAR VOLUME 87 fL (79-100); MONO # 0.4 x10^3/uL (0.0-1.1); MONO % 5 % (0-9); NEUT # 6.7 x10^3uL (1.8-7.7); NEUT % 91 % (31-73); PLATELET COUNT 169 x10^3/uL (140-400); RED BLOOD COUNT 3.89 x10^6/uL (4.30-5.70); RED CELL DISTRIBUTION WIDTH 15.9 % (11.5-14.5); WHITE BLOOD COUNT 7.4 x10^3/uL (4.0-11.0)
[2018-07-13 09:37] LABS: PROTHROMBIN TIME PATIENT 14.3 SEC (11.7-14.0)
[2018-07-13 10:00] VITALS: BP 139/89
[2018-07-13 10:52] LABS: % LYMPHS 3 % (24-48); % MONOS 4 % (0-10); % SEGS 93 % (35-66); PLT ESTIMATE ADEQUATE (ADEQUATE)
== END 2018-07-13 10:28 | disposition home or self-care (01) ==
LOC: ER 07:54
DX: R04.0 Epistaxis (principal); I11.0 Hypertensive heart disease with heart failure; I50.9 Heart failure, unspecified; J43.9 Emphysema, unspecified; Z87.09 Personal history of other diseases of the respiratory system; Z86.711 Personal history of pulmonary embolism; Z88.6 Allergy status to analgesic agent
CPT/HCPCS: 36415; 85007; 85025; 85610; 85730; 94640; 99284

== ENCOUNTER 2018-07-14 15:14 | Inpatient (IN) | payer MEDICARE, MEDICAID ==
[~2018-07-14] VITALS: Ht 180.3 cm; Wt 77.3 kg
[2018-07-14] MEDS ORDERED: IPRATRPIUM/ALBUTEROL 0.5/2.5MG 3 ML NEBU. NEB ONE (15:30)
[2018-07-14] MEDS ORDERED: methylPREDNISolone SOD SUCC PF 125 MG/2 ML VIAL. IV ONE (15:30)
--- NOTE | 2018-07-14 15:46 | PHYS DOC ---
Past Medical History Past Medical History: Bronchitis, CHF, COPD, High Cholesterol, Heart Disease, Hypertension, Other Additional Past Medical Histor: EMPHYSEMA-on 3 L NC, "prediabetes", mdd,PE Past Surgical History: Other Additional Past Surgical Histo: HERNIA REPAIR Alcohol Use: None Drug Use: None Adult General Chief Complaint Chief Complaint: SHORTNESS OF BREATH HPI HPI Patient is a 58 year old male who presents with shortness of breath that became severe several hours prior to arrival. [facility] and became severely short of breath. EMS reports that when they arrived at scene he was on 15 L of non-humidified oxygen on a nasal cannula. The patient was unable to speak in full sentences. EMS gave breathing treatment which helped patient. Patient is able to speak in full sentences on arrival to ER. He reports pain of 9/10 from chronic back pain. He was also in the ER yesterday for the same complaint. He reports that he was diagnosed with a blood clot at [place] but is not sure when that was. Review of Systems Review of Systems Constitutional: Denies fever or chills [] Eyes: Denies change in visual acuity, redness, or eye pain [] HENT: Denies nasal congestion or sore throat [] Respiratory: Denies cough but reports shortness of breath [] Cardiovascular: No additional information not addressed in HPI [] GI: Denies abdominal pain, nausea, vomiting, bloody stools or diarrhea [] : Denies dysuria or hematuria [] Musculoskeletal: Reports back pain but denies joint pain [] Integument: Denies rash or skin lesions [] Neurologic: Denies headache, focal weakness or sensory changes [] Endocrine: Denies polyuria or polydipsia [] Complete systems were reviewed and found to be within normal limits, except as documented in this note. Current Medications Current Medications Current Medications Medications (Trade) Dose Ordered Sig/Candy Start Time Stop Time Status Last Admin Dose Admin Albuterol/ Ipratropium (Duoneb) 3 ml 1X ONCE 07/14/18 15:30 07/14/18 15:31 DC 07/14/18 15:30 3 ML Azithromycin 250 ml @ 250 mls/hr 1X ONCE 07/14/18 17:15 07/14/18 18:14 Azithromycin 500 mg/Sodium Chloride 250 ml @ 250 mls/hr 1X ONCE 07/14/18 17:15 07/14/18 18:14 UNV Info (CONTRAST GIVEN -- Rx MONITORING) 1 each PRN DAILY PRN 07/14/18 16:30 07/16/18 16:29 Iohexol (Omnipaque 350 Mg/ml) 100 ml 1X ONCE 07/14/18 16:30 07/14/18 16:31 DC Methylprednisolone Sodium Succinate (SOLU-Medrol 125MG VIAL) 125 mg 1X ONCE 07/14/18 15:30 07/14/18 15:31 DC 07/14/18 15:50 125 MG Morphine Sulfate (Morphine Sulfate) 2 mg PRN Q2HR PRN 07/14/18 17:30 07/15/18 17:29 Ondansetron HCl (Zofran) 4 mg PRN Q8HRS PRN 07/14/18 17:30 07/15/18 17:29 Sodium Chloride 500 ml @ 500 mls/hr 1X ONCE 07/14/18 17:15 07/14/18 18:14 Allergies Allergies Allergies Coded Allergies Type Severity Reaction Last Updated Verified acetaminophen Allergy Intermediate TAKES NORCO AT HOME 01/29/18 Yes Physical Exam Physical Exam Constitutional: Well developed, well nourished, no acute distress, non-toxic appearance. [] HENT: Normocephalic, atraumatic, bilateral external ears normal, oropharynx moist, no oral exudates, nose normal. [] Eyes: PERRLA, EOMI, conjunctiva normal, no discharge. [] Neck: Normal range of motion, no tenderness, supple, no stridor. [] Cardiovascular:Heart rate regular rhythm, no murmur [] Lungs & Thorax: Bilateral breath sounds has rhonchi throughout but is moving air. Abdomen: Bowel sounds normal, soft, no tenderness, no masses, no pulsatile masses. [] Skin: Warm, dry, no erythema, no rash. [] Back: No tenderness, no CVA tenderness. [] Extremities: No tenderness, no cyanosis, no clubbing, ROM intact, no edema. [] Neurologic: Alert and oriented X 3, normal motor function, normal sensory function, no focal deficits noted. [] Psychologic: Affect normal, judgement normal, mood normal. [] Current Patient Data Vital Signs Vital Signs Date Time Temp Pulse Resp B/P (MAP) Pulse Ox O2 Delivery O2 Flow Rate FiO2 07/14/18 16:00 94 16 102/70 (81) 98 Nasal Cannula 3.0 07/14/18 15:21 98.3 98.3 Lab Values Laboratory Tests Test 07/14/18 15:30 White Blood Count 8.5 x10^3/uL (4.0-11.0) Red Blood Count 3.56 x10^6/uL (4.30-5.70) L Hemoglobin 10.2 g/dL (13.0-17.5) L Hematocrit 31.0 % (39.0-53.0) L Mean Corpuscular Volume 87 fL (79-100) Mean Corpuscular Hemoglobin 29 pg (25-35) Mean Corpuscular Hemoglobin Concent 33 g/dL (31-37) Red Cell Distribution Width 16.2 % (11.5-14.5) H Platelet Count 180 x10^3/uL (140-400) Neutrophils (%) (Auto) 90 % (31-73) H Lymphocytes (%) (Auto) 4 % (24-48) L Monocytes (%) (Auto) 6 % (0-9) Eosinophils (%) (Auto) 0 % (0-3) Basophils (%) (Auto) 0 % (0-3) Neutrophils # (Auto) 7.7 x10^3uL (1.8-7.7) Lymphocytes # (Auto) 0.3 x10^3/uL (1.0-4.8) L Monocytes # (Auto) 0.5 x10^3/uL (0.0-1.1) Eosinophils # (Auto) 0.0 x10^3/uL (0.0-0.7) Basophils # (Auto) 0.0 x10^3/uL (0.0-0.2) Platelet Estimate Pending Prothrombin Time 20.7 SEC (11.7-14.0) H Prothrombin Time INR 1.8 (0.8-1.1) H Sodium Level 141 mmol/L (136-145) Potassium Level 4.7 mmol/L (3.5-5.1) Chloride Level 97 mmol/L (98-107) L Carbon Dioxide Level 31 mmol/L (21-32) Anion Gap 13 (6-14) Blood Urea Nitrogen 19 mg/dL (8-26) Creatinine 1.0 mg/dL (0.7-1.3) Estimated GFR (Cockcroft-Gault) 92.5 BUN/Creatinine Ratio 19 (6-20) Glucose Level 177 mg/dL (70-99) H Calcium Level 10.1 mg/dL (8.5-10.1) Total Bilirubin 0.3 mg/dL (0.2-1.0) Aspartate Amino Transferase (AST) 17 U/L (15-37) Alanine Aminotransferase (ALT) 30 U/L (16-63) Alkaline Phosphatase 97 U/L (46-116) Troponin I Quantitative < 0.017 ng/mL (0.000-0.055) JR-[id number]-Type Natriuretic Peptide 24 pg/mL (0-124) Total Protein 6.5 g/dL (6.4-8.2) Albumin 3.4 g/dL (3.4-5.0) Albumin/Globulin Ratio 1.1 (1.0-1.7) Laboratory Tests 07/14/18 15:30 Laboratory Tests 07/14/18 15:30 EKG EKG EKG interpreted by Dr. Casillas Shows NO STEMI with sinus tachycardia at rate of 105.[] Radiology/Procedures Radiology/Procedures Chest x-ray interpreted by Dr. Casillas shows widening of the Mediastinum that appears baseline compared to other x- rays. No acute abnormalities. Course & Med Decision Making Course & Med Decision Making Pertinent Labs and Imaging studies reviewed. (See chart for details) Will order labs, breathing treatment, chest x-ray and steroid. Depending on labs will order CT of Chest for PE rule out if Kidney function does allow. Attempted to order CT of Chest. Nursing staff was unable to get an IV for the CT contrast. Will call Dr. Hathaway for admission. Dr. Hathaway agreed to admit. Todd Disclaimer Todd Disclaimer This electronic medical record was generated, in whole or in part, using a voice recognition dictation system. Departure Departure Impression: Primary Impression: COPD exacerbation Disposition: ADMITTED INPATIENT Admitting Physician: ALINE hogue) Condition: STABLE Referrals: UNKNOWN PCP NAME (PCP) BONILLA BRAND APRN Jul 14, 2018 15:46
[2018-07-14 15:54] LABS: BASO % 0 % (0-3); EOS % 0 % (0-3); HEMOGLOBIN 10.2 g/dL (13.0-17.5); LYMPH # 0.3 x10^3/uL (1.0-4.8); LYMPH % 4 % (24-48); MEAN CORPUSCULAR HEMOGLOBIN 29 pg (25-35); MEAN CORPUSCULAR HGB CONC 33 g/dL (31-37); MEAN CORPUSCULAR VOLUME 87 fL (79-100); MONO # 0.5 x10^3/uL (0.0-1.1); MONO % 6 % (0-9); NEUT # 7.7 x10^3uL (1.8-7.7); NEUT % 90 % (31-73); PLATELET COUNT 180 x10^3/uL (140-400); RED BLOOD COUNT 3.56 x10^6/uL (4.30-5.70); RED CELL DISTRIBUTION WIDTH 16.2 % (11.5-14.5); WHITE BLOOD COUNT 8.5 x10^3/uL (4.0-11.0)
[2018-07-14 16:06] LABS: CALCIUM 10.1 mg/dL (8.5-10.1); GFR 92.5; POTASSIUM 4.7 mmol/L (3.5-5.1)
[2018-07-14 16:12] LABS: ALBUMIN 3.4 g/dL (3.4-5.0); ALBUMIN/GLOBULIN RATIO 1.1 (1.0-1.7); TOTAL BILIRUBIN 0.3 mg/dL (0.2-1.0); TOTAL PROTEIN 6.5 g/dL (6.4-8.2)
[2018-07-14 16:13] LABS: PROTHROMBIN TIME PATIENT 20.7 SEC (11.7-14.0)
[2018-07-14] MEDS ORDERED: CONTRAST GIVEN. MC PRN (16:30)
[2018-07-14] MEDS ORDERED: IOHEXOL 350 MG/ML 100 ML VIAL. IV ONE (16:30)
[2018-07-14] MEDS ORDERED: AZITHRMYCN 500MG IVPB FOR OMNI 250 ML IV ONE (17:15)
[2018-07-14] MEDS ORDERED: IV NORMAL SALINE 500ML BAG 500 ML IV ONE (17:15)
[2018-07-14] MEDS ORDERED: AZITHROMYCIN 500 MG in IV NORMAL SALINE 250ML 250 ML IV ONE (17:15)
[2018-07-14] MEDS ORDERED: ONDANSETRON PF 4 MG/2 ML VIAL. IV PRN (17:30)
[2018-07-14] MEDS ORDERED: MORPHINE SULFATE 2 MG/ML VIAL. IV PRN (17:30)
[2018-07-14 17:58] LABS: % LYMPHS 2 % (24-48); % MONOS 6 % (0-10); % SEGS 92 % (35-66); PLT ESTIMATE ADEQUATE (ADEQUATE)
[2018-07-14 18:20] VITALS: BP 137/84
--- NOTE | 2018-07-14 19:11 | NUR ---
Pt arrived from Ed per w/c to room 665. Has mild bloody nose. VSS taken and head to toe assessment completed. Pt arrived at 1805.
[2018-07-14] MEDS: IPRATRPIUM/ALBUTEROL 0.5/2.5MG 3 ML NEBU. NEB SCH (20:28)
[2018-07-14 21:23] LABS: BILIRUBIN,URINE NEGATIVE (NEG); CLARITY,URINE CLEAR; COLOR,URINE AMBER; NITRITE,URINE NEGATIVE (NEG); PROTEIN,URINE NEGATIVE (NEG-TRACE)
[2018-07-14 21:30] LABS: BACTERIA,URINE 0 /HPF (0-FEW); RBC,URINE OCC /HPF (0-2); WBC,URINE OCC /HPF (0-4)
[2018-07-14] MEDS ORDERED: ACETAMINOPHEN 325 MG TABLET. PO PRN (21:30)
[2018-07-14 21:31] LABS: HYALINE CASTS, URINE OCCASIONAL /HPF; SQUAMOUS EPITHELIAL CELL,UR OCC /LPF
--- NOTE | 2018-07-14 21:37 | HP ---
ADMIT DATE: 07/14/2018 CHIEF COMPLAINT: Shortness of breath. HISTORY OF PRESENT ILLNESS: The patient is a pleasant 58-year-old male who we have been admitting quite a bit lately. He has got end-stage COPD and heart failure. Basically, he was just discharged 2 days ago. He keeps coming back to the ER every day with shortness of breath. He has been apparently at a intermediate, they called EMS. He was noted to be hypoxic and was placed on 15 liters of non-humidified oxygen per nasal cannula. We did a chest x-ray here in the Emergency Room; it is showing probable vascular congestion and COPD. I have discussed the case with ER physician. We are going to admit the patient and consult Pulmonary. It should be noted that the patient rates his symptoms at 10/10, it is worse with movement, better with sitting still, described it as agonizing. PAST MEDICAL HISTORY: CHF, bronchitis, COPD, hyperlipidemia, coronary artery disease, hypertension, diabetes, pulmonary embolism, hernia repair, chronic anticoagulation (he was just diagnosed with a pulmonary embolism bilaterally 2 weeks ago at another healthcare facility). ALLERGIES: TYLENOL. FAMILY HISTORY: Coronary artery disease. SOCIAL HISTORY: He quit smoking a couple of years ago. He does not drink or take drugs. Currently, he is at a intermediate. MEDICATIONS: Reviewed, please refer to the MRAD. REVIEW OF SYSTEMS: GENERAL: No history of weight change, weakness or fevers. SKIN: No bruising, hair changes or rashes. EYES: No blurred, double or loss of vision. NOSE AND THROAT: No history of nosebleeds, hoarseness or sore throat. HEART: No history of palpitations, chest pain or shortness of breath on exertion. LUNGS: He complains of shortness of breath. GASTROINTESTINAL: Denies changes in appetite, nausea, vomiting, diarrhea or constipation. GENITOURINARY: No history of frequency, urgency, hesitancy or nocturia. NEUROLOGIC: Denies history of numbness, tingling, tremor or weakness. PSYCHIATRIC: No history of panic, anxiety or depression. ENDOCRINE: No history of heat or cold intolerance, polyuria or polydipsia. EXTREMITIES: Denies muscle weakness, joint pain, pain on walking or stiffness. PHYSICAL EXAMINATION: VITAL SIGNS: Temperature afebrile, pulse is 98, respirations 20, blood pressure 102/70, O2 sat 98% on 3 liters. GENERAL: He is alert, cooperative. HEART: Normal S1, S2 with a soft S3. LUNGS: Very diminished with slight crackles. ABDOMEN: Soft, positive bowel sounds. EXTREMITIES: Trace edema. SKIN: No rash. ENDOCRINE: No thyromegaly. LYMPHATICS: No cervical nodes. HEMATOPOIETIC: No bruising. PSYCHIATRIC: He is depressed. LABORATORY DATA: White count is 8, hemoglobin 10, platelets 180. Electrolytes are normal. Troponin is 0. INR is 1.8. ASSESSMENT AND PLAN: Respiratory failure, multifactorial including probable heart failure, chronic obstructive pulmonary disease, and recent pulmonary emboli. The patient is being admitted. We will consult Pulmonary and Cardiology. Serial enzymes, serial EKGs, cardiac monitoring, O2 per nasal cannula, home meds. Continue the anticoagulation. PROGNOSIS: Long-term guarded. TAMMY MARKS DO DR: HEATHER/efrain JOB#: [id number] / [id number]
[2018-07-14 23:14] VITALS: BP 119/88
[2018-07-14] MEDS: ATORVASTATIN CALCIUM 10 MG TABLET. PO SCH (23:40)
[2018-07-14] MEDS: DOXYCYCLINE HYCLATE 100 MG TABLET PO SCH (23:41)
[2018-07-14] MEDS: METOCLOPRAMIDE 10 MG TABLET. PO SCH (23:42)
[2018-07-14] MEDS: traMADol 50 MG TABLET PO PRN (23:59)
[2018-07-15] MEDS ORDERED: NON FORMULARY ITEM (Albuterol Sulfate (Ventolin Hfa Inhaler) 2 PUFF) INH SCH
[2018-07-15] MEDS ORDERED: ALBUTEROL SULFATE 2.5 MG/3 ML NEBU. NEB SCH
--- NOTE | 2018-07-15 00:06 | NUR ---
Pt with PICC line placed in right upper arm. Ok to use and draw blood. IV bolus given and antibiotics given according to orders. Pt continues with mild bloody nose at this time. Pt instructed on using ice pack and pinching nose for 10min. However pt only able to tolerate 5 min. Blood did slow down. Pt also wanted bubbler removed from oxygen to see if that will help. Pt instructed that the bubbler is used for dryness in the nose however pt still wants it off for a little while. Pt home medications ordered. Will continue to monitor pt closely. Pt on telemonitor at this time.
[2018-07-15] MEDS: LORazepam 1 MG TABLET PO PRN ×2 (00:54→21:45)
[2018-07-15] MEDS: ALBUTEROL SULFATE 2.5 MG/3 ML NEBU. NEB PRN (01:06)
--- NOTE | 2018-07-15 01:30 | NUR ---
Pt restless and states having a hard time breathing. Called RT and pt received breathing tx. Pt called out after 5 min of receiving treatment and requested BIPAP. Called Dr. Hathaway and received ok orders for bipap. Spoke to RT and pt placed on bipap. Pt also given solumedrol IV and ativan to help pt to relax. Pt states slightly feeling better.
[2018-07-15] MEDS ORDERED: SODIUM CHL/ALOE VERA NASAL GEL 14.1GM TUBE. NS PRN (01:45)
[2018-07-15] MEDS: methylPREDNISolone SOD SUCC PF 125 MG/2 ML VIAL. IV SCH ×2 (01:53→08:33)
--- NOTE | 2018-07-15 02:42 | NUR ---
Reassessed pt and pt currently resting with eyes closed lying in bed with hob elevated. No further bleeding noted from nose however pt does have AYR gel available prn. Pt continues ST on monitor however HR decreased to 100-110's.
--- NOTE | 2018-07-15 06:38 | EKG ---
[facility] [address] [place] [address] Test Date: 2018-07-14 Test Time: 15:36:27 Pat Name: KAYLA JONES Department: Room: Gender: M Support Technician: : 1960 Requested By: BONILLA BRAND Order Number: [id number] Reading MD: Measurements Intervals Brule Rate: 105 P: -4 NH: 150 QRS: 39 QRSD: 78 T: 57 QT: 312 QTc: 416 Interpretive Statements SINUS TACHYCARDIA ATRIAL PREMATURE COMPLEX(ES) QRS(T) CONTOUR ABNORMALITY CANNOT RULE OUT ANTEROSEPTAL MYOCARDIAL DAMAGE BORDERLINE ECG No previous ECG available for comparison
[2018-07-15 07:00] VITALS: BP 139/81
[2018-07-15] MEDS ORDERED: BUDESONIDE 0.5 MG/2 ML NEBU. NEB SCH (08:00)
[2018-07-15] MEDS: CHOLECALCIFEROL (VITAMIN D3) 5,000 UNIT CAPSULE PO SCH (08:28)
[2018-07-15] MEDS: POTASSIUM CHLORIDE 20 MEQ TABLET.ER. PO SCH (08:28)
[2018-07-15] MEDS: FUROSEMIDE 40 MG TABLET. PO SCH (08:28)
[2018-07-15] MEDS: METOCLOPRAMIDE 10 MG TABLET. PO SCH ×4 (08:29→21:45)
[2018-07-15] MEDS: PANTOPRAZOLE 40 MG TABLET.DR. PO SCH (08:29)
[2018-07-15] MEDS: DOXYCYCLINE HYCLATE 100 MG TABLET PO SCH ×2 (08:29→21:45)
[2018-07-15] MEDS: FLUTICASONE 50MCG/NASAL SPRAY 16GM BOTTLE. NS SCH (08:30)
[2018-07-15] MEDS: fentaNYL 25MCG/HR PATCH 1 PATCH PATCH.TD72 TD SCH (08:32)
[2018-07-15] MEDS: ANTI-COAG MONITOR BY PHARMACY. MC PRN (09:22)
[2018-07-15] MEDS: IPRATRPIUM/ALBUTEROL 0.5/2.5MG 3 ML NEBU. NEB SCH ×4 (09:26→21:16)
--- NOTE | 2018-07-15 10:42 | PDOC ---
[employer] PROGRESS NOTE Chief Complaint Chief Complaint Multifactorial respiratory failure with Recent bilateral pulmonary emboli on chronic anticoagulation CHF COPD Bronchitis Probable LEVIN Multiple comorbidities History of Present Illness History of Present Illness Patient seen and examined with his RN He tolerated BiPAP last night apparently he doesn't have BiPAP at home but does have CPAP prefer to have BiPAP Vitals Vitals Vital Signs Date Time Temp Pulse Resp B/P (MAP) Pulse Ox O2 Delivery O2 Flow Rate FiO2 07/15/18 09:28 100 Nasal Cannula 2.0 07/15/18 08:32 18 07/15/18 07:00 98.1 105 139/81 (100) 98.1 Physical Exam General: Alert, Oriented X3 Heart: Regular rate, Normal S1 Lungs: Crackles, Other Abdomen: Normal bowel sounds, Soft Extremities: No clubbing, No cyanosis Skin: No rashes, No breakdown Labs Labs: Laboratory Tests Test 07/14/18 15:30 07/14/18 21:15 White Blood Count 8.5 x10^3/uL (4.0-11.0) Red Blood Count 3.56 x10^6/uL (4.30-5.70) Hemoglobin 10.2 g/dL (13.0-17.5) Hematocrit 31.0 % (39.0-53.0) Mean Corpuscular Volume 87 fL (79-100) Mean Corpuscular Hemoglobin 29 pg (25-35) Mean Corpuscular Hemoglobin Concent 33 g/dL (31-37) Red Cell Distribution Width 16.2 % (11.5-14.5) Platelet Count 180 x10^3/uL (140-400) Neutrophils (%) (Auto) 90 % (31-73) Lymphocytes (%) (Auto) 4 % (24-48) Monocytes (%) (Auto) 6 % (0-9) Eosinophils (%) (Auto) 0 % (0-3) Basophils (%) (Auto) 0 % (0-3) Neutrophils # (Auto) 7.7 x10^3uL (1.8-7.7) Lymphocytes # (Auto) 0.3 x10^3/uL (1.0-4.8) Monocytes # (Auto) 0.5 x10^3/uL (0.0-1.1) Eosinophils # (Auto) 0.0 x10^3/uL (0.0-0.7) Basophils # (Auto) 0.0 x10^3/uL (0.0-0.2) Segmented Neutrophils % 92 % (35-66) Lymphocytes % 2 % (24-48) Monocytes % 6 % (0-10) Platelet Estimate Adequate (ADEQUATE) Prothrombin Time 20.7 SEC (11.7-14.0) Prothromb Time International Ratio 1.8 (0.8-1.1) Sodium Level 141 mmol/L (136-145) Potassium Level 4.7 mmol/L (3.5-5.1) Chloride Level 97 mmol/L (98-107) Carbon Dioxide Level 31 mmol/L (21-32) Anion Gap 13 (6-14) Blood Urea Nitrogen 19 mg/dL (8-26) Creatinine 1.0 mg/dL (0.7-1.3) Estimated GFR (Cockcroft-Gault) 92.5 BUN/Creatinine Ratio 19 (6-20) Glucose Level 177 mg/dL (70-99) Calcium Level 10.1 mg/dL (8.5-10.1) Total Bilirubin 0.3 mg/dL (0.2-1.0) Aspartate Amino Transf (AST/SGOT) 17 U/L (15-37) Alanine Aminotransferase (ALT/SGPT) 30 U/L (16-63) Alkaline Phosphatase 97 U/L (46-116) Troponin I Quantitative < 0.017 ng/mL (0.000-0.055) CL-Qmq-W-Type Natriuretic Peptide 24 pg/mL (0-124) Total Protein 6.5 g/dL (6.4-8.2) Albumin 3.4 g/dL (3.4-5.0) Albumin/Globulin Ratio 1.1 (1.0-1.7) Urine Collection Type Unknown Urine Color Corinne Urine Clarity Clear Urine pH 6.0 Urine Specific [place] 1.025 Urine Protein Negative mg/dL (NEG-TRACE) Urine Glucose (UA) 100 mg/dL (NEG) Urine Ketones (Stick) Negative mg/dL (NEG) Urine Blood Negative (NEG) Urine Nitrite Negative (NEG) Urine Bilirubin Negative (NEG) Urine Urobilinogen Dipstick 1.0 mg/dL (0.2 mg/dL) Urine Leukocyte Esterase Negative (NEG) Urine RBC Occ /HPF (0-2) Urine WBC Occ /HPF (0-4) Urine Squamous Epithelial Cells Occ /LPF Urine Bacteria 0 /HPF (0-FEW) Urine Hyaline Casts Occasional /HPF Urine Mucus Mod /LPF Assessment and Plan Assessmemt and Plan Respiratory failure, multifactorial including recent pulmonary emboli on chronic anticoagulation probable heart failure, chronic obstructive pulmonary disease, and recent pulmonary emboli. Plan Consult Pulmonary and Cardiology. Serial enzymes, serial EKGs, cardiac monitoring, O2 per nasal cannula with BiPAP at night Home meds. Continue the anticoagulation. Comment Review of Relevant I have reviewed the following items franki (where applicable) has been applied. Labs Laboratory Tests Test 07/14/18 15:30 07/14/18 21:15 White Blood Count 8.5 x10^3/uL (4.0-11.0) Red Blood Count 3.56 x10^6/uL (4.30-5.70) Hemoglobin 10.2 g/dL (13.0-17.5) Hematocrit 31.0 % (39.0-53.0) Mean Corpuscular Volume 87 fL (79-100) Mean Corpuscular Hemoglobin 29 pg (25-35) Mean Corpuscular Hemoglobin Concent 33 g/dL (31-37) Red Cell Distribution Width 16.2 % (11.5-14.5) Platelet Count 180 x10^3/uL (140-400) Neutrophils (%) (Auto) 90 % (31-73) Lymphocytes (%) (Auto) 4 % (24-48) Monocytes (%) (Auto) 6 % (0-9) Eosinophils (%) (Auto) 0 % (0-3) Basophils (%) (Auto) 0 % (0-3) Neutrophils # (Auto) 7.7 x10^3uL (1.8-7.7) Lymphocytes # (Auto) 0.3 x10^3/uL (1.0-4.8) Monocytes # (Auto) 0.5 x10^3/uL (0.0-1.1) Eosinophils # (Auto) 0.0 x10^3/uL (0.0-0.7) Basophils # (Auto) 0.0 x10^3/uL (0.0-0.2) Segmented Neutrophils % 92 % (35-66) Lymphocytes % 2 % (24-48) Monocytes % 6 % (0-10) Platelet Estimate Adequate (ADEQUATE) Prothrombin Time 20.7 SEC (11.7-14.0) Prothromb Time International Ratio 1.8 (0.8-1.1) Sodium Level 141 mmol/L (136-145) Potassium Level 4.7 mmol/L (3.5-5.1) Chloride Level 97 mmol/L (98-107) Carbon Dioxide Level 31 mmol/L (21-32) Anion Gap 13 (6-14) Blood Urea Nitrogen 19 mg/dL (8-26) Creatinine 1.0 mg/dL (0.7-1.3) Estimated GFR (Cockcroft-Gault) 92.5 BUN/Creatinine Ratio 19 (6-20) Glucose Level 177 mg/dL (70-99) Calcium Level 10.1 mg/dL (8.5-10.1) Total Bilirubin 0.3 mg/dL (0.2-1.0) Aspartate Amino Transf (AST/SGOT) 17 U/L (15-37) Alanine Aminotransferase (ALT/SGPT) 30 U/L (16-63) Alkaline Phosphatase 97 U/L (46-116) Troponin I Quantitative < 0.017 ng/mL (0.000-0.055) XH-Vjx-V-Type Natriuretic Peptide 24 pg/mL (0-124) Total Protein 6.5 g/dL (6.4-8.2) Albumin 3.4 g/dL (3.4-5.0) Albumin/Globulin Ratio 1.1 (1.0-1.7) Urine Collection Type Unknown Urine Color Corinne Urine Clarity Clear Urine pH 6.0 Urine Specific [place] 1.025 Urine Protein Negative mg/dL (NEG-TRACE) Urine Glucose (UA) 100 mg/dL (NEG) Urine Ketones (Stick) Negative mg/dL (NEG) Urine Blood Negative (NEG) Urine Nitrite Negative (NEG) Urine Bilirubin Negative (NEG) Urine Urobilinogen Dipstick 1.0 mg/dL (0.2 mg/dL) Urine Leukocyte Esterase Negative (NEG) Urine RBC Occ /HPF (0-2) Urine WBC Occ /HPF (0-4) Urine Squamous Epithelial Cells Occ /LPF Urine Bacteria 0 /HPF (0-FEW) Urine Hyaline Casts Occasional /HPF Urine Mucus Mod /LPF Laboratory Tests Test 07/14/18 15:30 07/14/18 21:15 White Blood Count 8.5 x10^3/uL (4.0-11.0) Red Blood Count 3.56 x10^6/uL (4.30-5.70) Hemoglobin 10.2 g/dL (13.0-17.5) Hematocrit 31.0 % (39.0-53.0) Mean Corpuscular Volume 87 fL (79-100) Mean Corpuscular Hemoglobin 29 pg (25-35) Mean Corpuscular Hemoglobin Concent 33 g/dL (31-37) Red Cell Distribution Width 16.2 % (11.5-14.5) Platelet Count 180 x10^3/uL (140-400) Neutrophils (%) (Auto) 90 % (31-73) Lymphocytes (%) (Auto) 4 % (24-48) Monocytes (%) (Auto) 6 % (0-9) Eosinophils (%) (Auto) 0 % (0-3) Basophils (%) (Auto) 0 % (0-3) Neutrophils # (Auto) 7.7 x10^3uL (1.8-7.7) Lymphocytes # (Auto) 0.3 x10^3/uL (1.0-4.8) Monocytes # (Auto) 0.5 x10^3/uL (0.0-1.1) Eosinophils # (Auto) 0.0 x10^3/uL (0.0-0.7) Basophils # (Auto) 0.0 x10^3/uL (0.0-0.2) Segmented Neutrophils % 92 % (35-66) Lymphocytes % 2 % (24-48) Monocytes % 6 % (0-10) Platelet Estimate Adequate (ADEQUATE) Prothrombin Time 20.7 SEC (11.7-14.0) Prothromb Time International Ratio 1.8 (0.8-1.1) Sodium Level 141 mmol/L (136-145) Potassium Level 4.7 mmol/L (3.5-5.1) Chloride Level 97 mmol/L (98-107) Carbon Dioxide Level 31 mmol/L (21-32) Anion Gap 13 (6-14) Blood Urea Nitrogen 19 mg/dL (8-26) Creatinine 1.0 mg/dL (0.7-1.3) Estimated GFR (Cockcroft-Gault) 92.5 BUN/Creatinine Ratio 19 (6-20) Glucose Level 177 mg/dL (70-99) Calcium Level 10.1 mg/dL (8.5-10.1) Total Bilirubin 0.3 mg/dL (0.2-1.0) Aspartate Amino Transf (AST/SGOT) 17 U/L (15-37) Alanine Aminotransferase (ALT/SGPT) 30 U/L (16-63) Alkaline Phosphatase 97 U/L (46-116) Troponin I Quantitative < 0.017 ng/mL (0.000-0.055) GU-Jop-D-Type Natriuretic Peptide 24 pg/mL (0-124) Total Protein 6.5 g/dL (6.4-8.2) Albumin 3.4 g/dL (3.4-5.0) Albumin/Globulin Ratio 1.1 (1.0-1.7) Urine Collection Type Unknown Urine Color Corinne Urine Clarity Clear Urine pH 6.0 Urine Specific [place] 1.025 Urine Protein Negative mg/dL (NEG-TRACE) Urine Glucose (UA) 100 mg/dL (NEG) Urine Ketones (Stick) Negative mg/dL (NEG) Urine Blood Negative (NEG) Urine Nitrite Negative (NEG) Urine Bilirubin Negative (NEG) Urine Urobilinogen Dipstick 1.0 mg/dL (0.2 mg/dL) Urine Leukocyte Esterase Negative (NEG) Urine RBC Occ /HPF (0-2) Urine WBC Occ /HPF (0-4) Urine Squamous Epithelial Cells Occ /LPF Urine Bacteria 0 /HPF (0-FEW) Urine Hyaline Casts Occasional /HPF Urine Mucus Mod /LPF Medications Current Medications Albuterol/ Ipratropium (Duoneb) 3 ml 1X ONCE NEB Last administered on 07/14/18at 15:30; Start 07/14/18 at 15:30; Stop 07/14/18 at 15:31; Status DC Methylprednisolone Sodium Succinate (SOLU-Medrol 125MG VIAL) 125 mg 1X ONCE IV Last administered on 07/14/18at 15:50; Start 07/14/18 at 15:30; Stop 07/14/18 at 15:31; Status DC Iohexol (Omnipaque 350 Mg/ml) 100 ml 1X ONCE IV ; Start 07/14/18 at 16:30; Stop 07/14/18 at 16:31; Status DC Info (CONTRAST GIVEN -- Rx MONITORING) 1 each PRN DAILY PRN MC SEE COMMENTS; Start 07/14/18 at 16:30; Stop 07/16/18 at 16:29 Sodium Chloride 500 ml @ 500 mls/hr 1X ONCE IV Last administered on 07/14/18at 23:40; Start 07/14/18 at 17:15; Stop 07/14/18 at 18:14; Status DC Azithromycin 500 mg/Sodium Chloride 250 ml @ 250 mls/hr 1X ONCE IV ; Start 07/14/18 at 17:15; Stop 07/14/18 at 18:14; Status UNV Azithromycin 250 ml @ 250 mls/hr 1X ONCE IV Last administered on 07/14/18at 23:40; Start 07/14/18 at 17:15; Stop 07/14/18 at 18:14; Status DC Ondansetron HCl (Zofran) 4 mg PRN Q8HRS PRN IV NAUSEA/VOMITING; Start 07/14/18 at 17:30; Stop 07/15/18 at 17:29 Morphine Sulfate (Morphine Sulfate) 2 mg PRN Q2HR PRN IV PAIN; Start 07/14/18 at 17:30; Stop 07/15/18 at 17:29 Albuterol/ Ipratropium (Duoneb) 3 ml RTQID NEB Last administered on 07/15/18 09:26; Start 07/14/18 at 20:00 Albuterol Sulfate (Ventolin Neb Soln) 2.5 mg PRN Q4HRS PRN NEB SHORTNESS OF BREATH Last administered on 07/15/18at 01:06; Start 07/14/18 at 20:15 Atorvastatin Calcium (Lipitor) 10 mg HS PO Last administered on 07/14/18 23:40; Start 07/14/18 at 21:00 Doxycycline Hyclate (Vibra-Tab) 100 mg BID PO Last administered on 07/15/18 08:29; Start 07/14/18 at 21:00 Fentanyl (Duragesic 25mcg/ Hr Patch) 1 patch Q3DAYS TD Last administered on 07/15/18 08:32; Start 07/15/18 at 09:00 Furosemide (Lasix) 40 mg DAILY PO Last administered on 07/15/18at 08:28; Start 07/15/18 at 09:00 Guaifenesin (Robitussin) 200 mg PRN Q4HRS PRN PO COUGH; Start 07/14/18 at 20:45 Lorazepam (Ativan) 1 mg PRN BID PRN PO ANXIETY / AGITATION Last administered on 07/15/18at 00:54; Start 07/14/18 at 20:45 Metoclopramide HCl (Reglan) 5 mg QIDACHS PO Last administered on 07/15/18at 08:29; Start 07/14/18 at 21:00 Budesonide (Pulmicort) 0.5 mg RTBID NEB ; Start 07/15/18 at 08:00; Stop 07/15/18 at 08:00; Status DC Vitamin D (Vitamin D3) 5,000 unit DAILY PO Last administered on 07/15/18at 08:28; Start 07/15/18 at 09:00 Fluticasone Propionate (Flonase) 2 spray DAILY NS Last administered on 07/15/18 08:30; Start 07/15/18 at 09:00 Pantoprazole Sodium (Protonix) 40 mg DAILYAC PO Last administered on 07/15/18 08:29; Start 07/15/18 at 07:30 Potassium Chloride (Klor-Con) 20 meq DAILYWBKFT PO Last administered on 07/15/18at 08:28; Start 07/15/18 at 08:00 Acetaminophen (Tylenol) 650 mg PRN Q4HRS PRN PO TEMP OVER 100.4F OR MILD PAIN; Start 07/14/18 at 21:30 Rivaroxaban (Xarelto) 15 mg BIDWMEALS PO ; Start 07/15/18 at 08:00; Stop 07/18/18 at 18:00 Tramadol HCl (Ultram) 50 mg PRN Q6HRS PRN PO PAIN Last administered on 07/14/18at 23:59; Start 07/14/18 at 21:30 Non-Formulary Medication (Albuterol Sulfate (Ventolin Hfa Inhaler)) 2 puff Q4HRS INH ; Start 07/15/18 at 00:00; Status UNV Rivaroxaban (Xarelto) 20 mg DAILY PO ; Start 07/19/18 at 09:00 Albuterol Sulfate (Ventolin Neb Soln) 2.5 mg Q4H NEB ; Start 07/15/18 at 00:00; Stop 07/15/18 at 00:00; Status DC Methylprednisolone Sodium Succinate (SOLU-Medrol 125MG VIAL) 60 mg Q12HR IV Last administered on 07/15/18at 08:33; Start 07/15/18 at 01:45 Sodium Chloride ([place] Saline Nasal) 1 elieser PRN DAILY PRN NS NASAL CONGESTION Last administered on 07/15/18at 08:30; Start 07/15/18 at 01:45 Info (Anti-Coagulation Monitoring By Pharmacy) 1 each PRN DAILY PRN MC SEE COMMENTS Last administered on 07/15/18at 09:22; Start 07/15/18 at 09:30 Lactobacillus Rhamnosus (Culturelle) 1 cap BID PO ; Start 07/15/18 at 21:00 Active Scripts Active Tramadol Hcl 50 Mg Tablet 50 Mg PO PRN Q6HRS PRN 6 Days Ativan (Lorazepam) 1 Mg Tablet 1 Mg PO PRN BID PRN 6 Days Xarelto (Rivaroxaban) 20 Mg Tablet 20 Mg PO DAILY 30 Days START on 07/20/2018 FENTANYL 25mcg/hr (Fentanyl) 1 Each Patch.td72 1 Patch TD Q3DAYS 30 Days Xarelto (Rivaroxaban) 15 Mg Tablet 15 Mg PO BIDWMEALS 7 Days On Day 8 transition to 20mg Xarelto Doxycycline Hyclate 100 Mg Tablet 100 Mg PO BID 5 Days Prednisone (Prednisone) 10 Mg Tablet 10 Mg PO UD Take 3 tablets by mouth twice a day for 3 days, then take 2 tablets by mouth twice a day for 3 days, then take 1 tablet by mouth twice a day for 3 days, then take 1 tablet by mouth daily x 3 days, then stop. Guaifenesin 100 Mg/5 Ml Liquid 200 Mg PO PRN Q4HRS PRN 30 Days Tylenol (Acetaminophen) 325 Mg Tablet 650 Mg PO PRN Q4HRS PRN 10 Days Ventolin Hfa Inhaler (Albuterol Sulfate) 18 Gm Hfa.aer.ad 2 Puff INH Q4HRS Reglan (Metoclopramide Hcl) 10 Mg Tablet 0.5 Tab PO QID 30 Days Albuterol Sulfate Neb Soln (Albuterol Sulfate) 2.5 Mg/3 Ml Vial.neb 1 Vial NEB PRN Q4HRS Reported Furosemide 40 Mg Tablet 1 Tab PO DAILY Vitamin D3 (Cholecalciferol (Vitamin D3)) 5,000 Unit Tablet 5,000 Unit PO DAILY Potassium Chloride 20 Meq Tablet.er 20 Meq PO DAILY Protonix (Pantoprazole Sodium) 20 Mg Tablet.dr 1 Tab PO DAILY Flonase Allergy Relief (Fluticasone Propionate) 9.9 Ml Guinda.susp 2 Sprays NS DAILY Atorvastatin Calcium 10 Mg Tablet 10 Mg PO HS Symbicort 160-4.5 Mcg Inhaler (Budesonide/Formoterol Fumarate) 10.2 Gm Hfa.aer.ad 2 Puff IH BID Vitals/I & O Vital Sign - Last 24 Hours 07/14/18 07/14/18 07/14/18 07/14/18 15:21 15:49 16:00 17:30 Temp 98.3 98.3 Pulse 121 94 106 Resp 22 16 18 B/P (MAP) 116/79 (91) 102/70 (81) 143/88 (106) Pulse Ox 100 95 98 99 O2 Delivery Nasal Cannula Nasal Cannula Nasal Cannula Nasal Cannula O2 Flow Rate 3.0 3.0 3.0 3.0 07/14/18 07/14/18 07/14/18 07/14/18 18:20 18:20 20:00 20:31 Temp 98.1 98.1 Pulse 108 Resp 20 B/P (MAP) 137/84 (101) Pulse Ox 98 97 O2 Delivery Nasal Cannula Nasal Cannula Nasal Cannula Nasal Cannula O2 Flow Rate 2.0 3.0 3.0 3.0 07/14/18 07/14/18 07/15/18 07/15/18 23:14 23:59 00:59 01:08 Temp 98.0 98.0 Pulse 114 Resp 18 B/P (MAP) 119/88 (98) Pulse Ox 94 100 O2 Delivery Nasal Cannula Nasal Cannula Room Air Nasal Cannula O2 Flow Rate 2.0 3.0 3.0 07/15/18 07/15/18 07/15/18 07/15/18 01:54 03:00 07:00 08:00 Temp 98.1 98.1 Pulse 97 105 Resp 18 16 B/P (MAP) 139/81 (100) Pulse Ox 100 99 O2 Delivery BiPAP/CPAP BiPAP/CPAP Nasal Cannula Nasal Cannula O2 Flow Rate 2.0 2.0 07/15/18 07/15/18 08:32 09:28 Resp 18 Pulse Ox 100 O2 Delivery Nasal Cannula Nasal Cannula O2 Flow Rate 3.0 2.0 Intake and Output 07/14/18 07/14/18 07/15/18 14:59 22:59 06:59 Output Total 100 ml 200 ml Balance -100 ml -200 ml TAMMY MARKS III DO Jul 15, 2018 10:41
[2018-07-15 11:00] VITALS: BP 125/74
--- NOTE | 2018-07-15 11:43 | PDOC2 ---
CARDIAC CONSULT DATE OF CONSULT Date of Consult DATE: 07/15/18 TIME: 11:32 REASON FOR CONSULT Reason for Consult: ? CHF REFERRING PHYSICIAN Referring Physician: Dr. Hathaway SOURCE Source: Chart review, Patient HISTORY OF PRESENT ILLNESS HISTORY OF PRESENT ILLNESS This is a 58 yo male, with a history of COPD on chronic oxygen therapy, who presented from nursing rehab facility secondary to shortness of breath. Patient reports breathing has been worse for the last week. Progressively worse the last couple of days. This morning, as in significant distress so EMS was called. No chest pain, palpitations, dizziness, diaphoresis, or nausea/vomiting. Has had some trace edema in his bilateral LE. PAST MEDICAL HISTORY Cardiovascular: HTN, Hyperlipidemia Pulmonary: COPD, Other (ELVIN) GI: GERD Psych: Anxiety Renal/: Chronic renal insuff Endocrine: Diabetes PAST SURGICAL HISTORY Past Surgical History: Hernia Repair FAMILY HISTORY Family History: Heart Disease, Hypertension SOCIAL HISTORY Smoke: Quit (2013) ALCOHOL: none Drugs: None Lives: [facility] CURRENT MEDICATIONS CURRENT MEDICATIONS Current Medications Medications (Trade) Dose Ordered Sig/Candy Route PRN Reason Start Time Stop Time Status Last Admin Dose Admin Albuterol/ Ipratropium (Duoneb) 3 ml 1X ONCE NEB 07/14/18 15:30 07/14/18 15:31 DC 07/14/18 15:30 Methylprednisolone Sodium Succinate (SOLU-Medrol 125MG VIAL) 125 mg 1X ONCE IV 07/14/18 15:30 07/14/18 15:31 DC 07/14/18 15:50 Sodium Chloride 500 ml @ 500 mls/hr 1X ONCE IV 07/14/18 17:15 07/14/18 18:14 DC 07/14/18 23:40 Azithromycin 250 ml @ 250 mls/hr 1X ONCE IV 07/14/18 17:15 07/14/18 18:14 DC 07/14/18 23:40 Albuterol/ Ipratropium (Duoneb) 3 ml RTQID NEB 07/14/18 20:00 07/15/18 09:26 Albuterol Sulfate (Ventolin Neb Soln) 2.5 mg PRN Q4HRS PRN NEB SHORTNESS OF BREATH 07/14/18 20:15 07/15/18 01:06 Atorvastatin Calcium (Lipitor) 10 mg HS PO 07/14/18 21:00 07/14/18 23:40 Doxycycline Hyclate (Vibra-Tab) 100 mg BID PO 07/14/18 21:00 07/15/18 08:29 Fentanyl (Duragesic 25mcg/ Hr Patch) 1 patch Q3DAYS TD 07/15/18 09:00 07/15/18 08:32 Furosemide (Lasix) 40 mg DAILY PO 07/15/18 09:00 07/15/18 08:28 Lorazepam (Ativan) 1 mg PRN BID PRN PO ANXIETY / AGITATION 07/14/18 20:45 07/15/18 00:54 Metoclopramide HCl (Reglan) 5 mg QIDACHS PO 07/14/18 21:00 07/15/18 08:29 Vitamin D (Vitamin D3) 5,000 unit DAILY PO 07/15/18 09:00 07/15/18 08:28 Fluticasone Propionate (Flonase) 2 spray DAILY NS 07/15/18 09:00 07/15/18 08:30 Pantoprazole Sodium (Protonix) 40 mg DAILYAC PO 07/15/18 07:30 07/15/18 08:29 Potassium Chloride (Klor-Con) 20 meq DAILYWBKFT PO 07/15/18 08:00 07/15/18 08:28 Tramadol HCl (Ultram) 50 mg PRN Q6HRS PRN PO PAIN 07/14/18 21:30 07/14/18 23:59 Methylprednisolone Sodium Succinate (SOLU-Medrol 125MG VIAL) 60 mg Q12HR IV 07/15/18 01:45 07/15/18 08:33 Sodium Chloride ([place] Saline Nasal) 1 elieser PRN DAILY PRN NS NASAL CONGESTION 07/15/18 01:45 07/15/18 08:30 Info (Anti-Coagulation Monitoring By Pharmacy) 1 each PRN DAILY PRN MC SEE COMMENTS 07/15/18 09:30 07/15/18 09:22 ALLERGIES ALLERGIES: Coded Allergies: acetaminophen (Verified Allergy, Intermediate, TAKES [facility]CO AT HOME, 01/29/18) ROS Review of System 14 point ROS conducted with pertinent positives noted above in HPI. PHYSICAL EXAM General: Alert, Oriented X3, Cooperative, No acute distress HEENT: Atraumatic, Mucous membr. moist/pink Lungs: Other (crackles bilaterally ) Heart: Regular rate (SR/ST), Normal S1, Normal S2 Abdomen: Soft Extremities: Normal pulses, Other (trace bilateral pedal edema ) Skin: No significant lesion Neuro: Normal speech, Sensation intact Psych/Mental Status: Mental status NL, Mood NL MUSCULOSKELETAL: Osteoarthritic changes both hands VITALS VITALS Vital Signs Date Time Temp Pulse Resp B/P (MAP) Pulse Ox O2 Delivery O2 Flow Rate FiO2 07/15/18 11:00 97.8 125 18 125/74 (91) 98 Nasal Cannula 2.0 97.8 LABS Lab: Laboratory Tests Test 07/14/18 15:30 07/14/18 21:15 White Blood Count 8.5 x10^3/uL (4.0-11.0) Red Blood Count 3.56 x10^6/uL (4.30-5.70) Hemoglobin 10.2 g/dL (13.0-17.5) Hematocrit 31.0 % (39.0-53.0) Mean Corpuscular Volume 87 fL (79-100) Mean Corpuscular Hemoglobin 29 pg (25-35) Mean Corpuscular Hemoglobin Concent 33 g/dL (31-37) Red Cell Distribution Width 16.2 % (11.5-14.5) Platelet Count 180 x10^3/uL (140-400) Neutrophils (%) (Auto) 90 % (31-73) Lymphocytes (%) (Auto) 4 % (24-48) Monocytes (%) (Auto) 6 % (0-9) Eosinophils (%) (Auto) 0 % (0-3) Basophils (%) (Auto) 0 % (0-3) Neutrophils # (Auto) 7.7 x10^3uL (1.8-7.7) Lymphocytes # (Auto) 0.3 x10^3/uL (1.0-4.8) Monocytes # (Auto) 0.5 x10^3/uL (0.0-1.1) Eosinophils # (Auto) 0.0 x10^3/uL (0.0-0.7) Basophils # (Auto) 0.0 x10^3/uL (0.0-0.2) Segmented Neutrophils % 92 % (35-66) Lymphocytes % 2 % (24-48) Monocytes % 6 % (0-10) Platelet Estimate Adequate (ADEQUATE) Prothrombin Time 20.7 SEC (11.7-14.0) Prothromb Time International Ratio 1.8 (0.8-1.1) Sodium Level 141 mmol/L (136-145) Potassium Level 4.7 mmol/L (3.5-5.1) Chloride Level 97 mmol/L (98-107) Carbon Dioxide Level 31 mmol/L (21-32) Anion Gap 13 (6-14) Blood Urea Nitrogen 19 mg/dL (8-26) Creatinine 1.0 mg/dL (0.7-1.3) Estimated GFR (Cockcroft-Gault) 92.5 BUN/Creatinine Ratio 19 (6-20) Glucose Level 177 mg/dL (70-99) Calcium Level 10.1 mg/dL (8.5-10.1) Total Bilirubin 0.3 mg/dL (0.2-1.0) Aspartate Amino Transf (AST/SGOT) 17 U/L (15-37) Alanine Aminotransferase (ALT/SGPT) 30 U/L (16-63) Alkaline Phosphatase 97 U/L (46-116) Troponin I Quantitative < 0.017 ng/mL (0.000-0.055) OH-Tpd-P-Type Natriuretic Peptide 24 pg/mL (0-124) Total Protein 6.5 g/dL (6.4-8.2) Albumin 3.4 g/dL (3.4-5.0) Albumin/Globulin Ratio 1.1 (1.0-1.7) Urine Collection Type Unknown Urine Color Corinne Urine Clarity Clear Urine pH 6.0 Urine Specific [place] 1.025 Urine Protein Negative mg/dL (NEG-TRACE) Urine Glucose (UA) 100 mg/dL (NEG) Urine Ketones (Stick) Negative mg/dL (NEG) Urine Blood Negative (NEG) Urine Nitrite Negative (NEG) Urine Bilirubin Negative (NEG) Urine Urobilinogen Dipstick 1.0 mg/dL (0.2 mg/dL) Urine Leukocyte Esterase Negative (NEG) Urine RBC Occ /HPF (0-2) Urine WBC Occ /HPF (0-4) Urine Squamous Epithelial Cells Occ /LPF Urine Bacteria 0 /HPF (0-FEW) Urine Hyaline Casts Occasional /HPF Urine Mucus Mod /LPF ECHOCARDIOGRAM ECHOCARDIOGRAM <Conclusion> The left ventricular systolic function is normal and the ejection fraction is w ithin normal range. The Ejection Fraction is >55%. There is normal LV segmental wall motion. The right ventricle is moderately dilated. The right ventricular systolic function is normal. DATE: 05/26/181956 ASSESSMENT/PLAN ASSESSMENT/PLAN 1. Acute respiratory failure secondary to AECOPD 2. Recent diagnosis of bilateral PE; on Xarelto 3. Chronic diastolic HF. Recent echo with preserved LV systolic function. CXR without significant vascular congestion. NT Pro BNP WNL. Doubt overt HF 4. ELVIN 5. Hypertension; controlled 7. Hyperlipidemia; statin 8. Tachycardia, sinus. reactive Recommendations Continue optimization therapy including oral lasix Lung optimization as per pulmonary ANETA KIRAN APRN Jul 15, 2018 11:43
[2018-07-15] MEDS: RIVAROXABAN 15 MG TABLET. PO SCH ×2 (12:09→16:46)
--- NOTE | 2018-07-15 13:51 | NUR ---
JACOB following for discharge planning. Discussed with RN, pt is from [facility] confirmed (ph: [phone], fax: [phone]). Pt has already had his 3 midnights from prior admission. SW will continue to follow for discharge planning.
--- NOTE | 2018-07-15 14:06 | RAD ---
Examination: Single frontal view of the chest HISTORY: History of shortness of breath COMPARISON: 07/04/2018 FINDINGS: The cardiomediastinal silhouette grossly appears unremarkable. Emphysematous changes identified in the lungs particularly in the left upper lobe of the lung similar to prior exam. Bibasilar lung airspace opacities likely atelectasis or infiltrates. IMPRESSION: 1. Emphysematous changes identified in the lungs particularly in the left upper lobe of the lung with a large bulla similar to prior exam. 2. Bibasilar lung airspace opacities likely atelectasis or infiltrates. Electronically signed by: Vinh Mcintyre MD (07/15/2018 2:03 PM) [facility]
[2018-07-15 15:00] VITALS: BP 118/71
--- NOTE | 2018-07-15 15:26 | PDOC ---
PULMONARY PROGRESS NOTES Vitals Vital Signs Date Time Temp Pulse Resp B/P (MAP) Pulse Ox O2 Delivery O2 Flow Rate FiO2 07/15/18 12:41 100 Nasal Cannula 2.0 07/15/18 11:00 97.8 125 18 125/74 (91) 97.8 General: Alert, No acute distress Lungs: Crackles, Other Cardiovascular: S1, S2 Abdomen: Soft, Non-tender Extremities: No Edema, Other Labs Laboratory Tests Test 07/14/18 15:30 07/14/18 21:15 White Blood Count 8.5 x10^3/uL (4.0-11.0) Red Blood Count 3.56 x10^6/uL (4.30-5.70) Hemoglobin 10.2 g/dL (13.0-17.5) Hematocrit 31.0 % (39.0-53.0) Mean Corpuscular Volume 87 fL (79-100) Mean Corpuscular Hemoglobin 29 pg (25-35) Mean Corpuscular Hemoglobin Concent 33 g/dL (31-37) Red Cell Distribution Width 16.2 % (11.5-14.5) Platelet Count 180 x10^3/uL (140-400) Neutrophils (%) (Auto) 90 % (31-73) Lymphocytes (%) (Auto) 4 % (24-48) Monocytes (%) (Auto) 6 % (0-9) Eosinophils (%) (Auto) 0 % (0-3) Basophils (%) (Auto) 0 % (0-3) Neutrophils # (Auto) 7.7 x10^3uL (1.8-7.7) Lymphocytes # (Auto) 0.3 x10^3/uL (1.0-4.8) Monocytes # (Auto) 0.5 x10^3/uL (0.0-1.1) Eosinophils # (Auto) 0.0 x10^3/uL (0.0-0.7) Basophils # (Auto) 0.0 x10^3/uL (0.0-0.2) Segmented Neutrophils % 92 % (35-66) Lymphocytes % 2 % (24-48) Monocytes % 6 % (0-10) Platelet Estimate Adequate (ADEQUATE) Prothrombin Time 20.7 SEC (11.7-14.0) Prothromb Time International Ratio 1.8 (0.8-1.1) Sodium Level 141 mmol/L (136-145) Potassium Level 4.7 mmol/L (3.5-5.1) Chloride Level 97 mmol/L (98-107) Carbon Dioxide Level 31 mmol/L (21-32) Anion Gap 13 (6-14) Blood Urea Nitrogen 19 mg/dL (8-26) Creatinine 1.0 mg/dL (0.7-1.3) Estimated GFR (Cockcroft-Gault) 92.5 BUN/Creatinine Ratio 19 (6-20) Glucose Level 177 mg/dL (70-99) Calcium Level 10.1 mg/dL (8.5-10.1) Total Bilirubin 0.3 mg/dL (0.2-1.0) Aspartate Amino Transf (AST/SGOT) 17 U/L (15-37) Alanine Aminotransferase (ALT/SGPT) 30 U/L (16-63) Alkaline Phosphatase 97 U/L (46-116) Troponin I Quantitative < 0.017 ng/mL (0.000-0.055) CY-Wnb-H-Type Natriuretic Peptide 24 pg/mL (0-124) Total Protein 6.5 g/dL (6.4-8.2) Albumin 3.4 g/dL (3.4-5.0) Albumin/Globulin Ratio 1.1 (1.0-1.7) Urine Collection Type Unknown Urine Color [place] Urine Clarity Clear Urine pH 6.0 Urine Specific [place] 1.025 Urine Protein Negative mg/dL (NEG-TRACE) Urine Glucose (UA) 100 mg/dL (NEG) Urine Ketones (Stick) Negative mg/dL (NEG) Urine Blood Negative (NEG) Urine Nitrite Negative (NEG) Urine Bilirubin Negative (NEG) Urine Urobilinogen Dipstick 1.0 mg/dL (0.2 mg/dL) Urine Leukocyte Esterase Negative (NEG) Urine RBC Occ /HPF (0-2) Urine WBC Occ /HPF (0-4) Urine Squamous Epithelial Cells Occ /LPF Urine Bacteria 0 /HPF (0-FEW) Urine Hyaline Casts Occasional /HPF Urine Mucus Mod /LPF Laboratory Tests Test 07/14/18 15:30 07/14/18 21:15 White Blood Count 8.5 x10^3/uL (4.0-11.0) Red Blood Count 3.56 x10^6/uL (4.30-5.70) Hemoglobin 10.2 g/dL (13.0-17.5) Hematocrit 31.0 % (39.0-53.0) Mean Corpuscular Volume 87 fL (79-100) Mean Corpuscular Hemoglobin 29 pg (25-35) Mean Corpuscular Hemoglobin Concent 33 g/dL (31-37) Red Cell Distribution Width 16.2 % (11.5-14.5) Platelet Count 180 x10^3/uL (140-400) Neutrophils (%) (Auto) 90 % (31-73) Lymphocytes (%) (Auto) 4 % (24-48) Monocytes (%) (Auto) 6 % (0-9) Eosinophils (%) (Auto) 0 % (0-3) Basophils (%) (Auto) 0 % (0-3) Neutrophils # (Auto) 7.7 x10^3uL (1.8-7.7) Lymphocytes # (Auto) 0.3 x10^3/uL (1.0-4.8) Monocytes # (Auto) 0.5 x10^3/uL (0.0-1.1) Eosinophils # (Auto) 0.0 x10^3/uL (0.0-0.7) Basophils # (Auto) 0.0 x10^3/uL (0.0-0.2) Segmented Neutrophils % 92 % (35-66) Lymphocytes % 2 % (24-48) Monocytes % 6 % (0-10) Platelet Estimate Adequate (ADEQUATE) Prothrombin Time 20.7 SEC (11.7-14.0) Prothromb Time International Ratio 1.8 (0.8-1.1) Sodium Level 141 mmol/L (136-145) Potassium Level 4.7 mmol/L (3.5-5.1) Chloride Level 97 mmol/L (98-107) Carbon Dioxide Level 31 mmol/L (21-32) Anion Gap 13 (6-14) Blood Urea Nitrogen 19 mg/dL (8-26) Creatinine 1.0 mg/dL (0.7-1.3) Estimated GFR (Cockcroft-Gault) 92.5 BUN/Creatinine Ratio 19 (6-20) Glucose Level 177 mg/dL (70-99) Calcium Level 10.1 mg/dL (8.5-10.1) Total Bilirubin 0.3 mg/dL (0.2-1.0) Aspartate Amino Transf (AST/SGOT) 17 U/L (15-37) Alanine Aminotransferase (ALT/SGPT) 30 U/L (16-63) Alkaline Phosphatase 97 U/L (46-116) Troponin I Quantitative < 0.017 ng/mL (0.000-0.055) MV-Dbt-P-Type Natriuretic Peptide 24 pg/mL (0-124) Total Protein 6.5 g/dL (6.4-8.2) Albumin 3.4 g/dL (3.4-5.0) Albumin/Globulin Ratio 1.1 (1.0-1.7) Urine Collection Type Unknown Urine Color [place] Urine Clarity Clear Urine pH 6.0 Urine Specific [place] 1.025 Urine Protein Negative mg/dL (NEG-TRACE) Urine Glucose (UA) 100 mg/dL (NEG) Urine Ketones (Stick) Negative mg/dL (NEG) Urine Blood Negative (NEG) Urine Nitrite Negative (NEG) Urine Bilirubin Negative (NEG) Urine Urobilinogen Dipstick 1.0 mg/dL (0.2 mg/dL) Urine Leukocyte Esterase Negative (NEG) Urine RBC Occ /HPF (0-2) Urine WBC Occ /HPF (0-4) Urine Squamous Epithelial Cells Occ /LPF Urine Bacteria 0 /HPF (0-FEW) Urine Hyaline Casts Occasional /HPF Urine Mucus Mod /LPF Medications Active Scripts Medications Dose Route/Sig Max Daily Dose Days Date Category Dose Instructions Tramadol Hcl 50 Mg Tablet 50 Mg PO PRN Q6HRS PRN 6 07/12/18 Rx Ativan (Lorazepam) 1 Mg Tablet 1 Mg PO PRN BID PRN 6 07/12/18 Rx Xarelto (Rivaroxaban) 20 Mg Tablet 20 Mg PO DAILY 30 07/12/18 Rx START on 07/20/2018 FENTANYL 25mcg/hr (Fentanyl) 1 Each Patch.td72 1 Patch TD Q3DAYS 30 07/12/18 Rx Xarelto (Rivaroxaban) 15 Mg Tablet 15 Mg PO BIDWMEALS 7 07/12/18 Rx On Day 8 transition to 20mg Xarelto Doxycycline Hyclate 100 Mg Tablet 100 Mg PO BID 5 07/12/18 Rx Prednisone (Prednisone) 10 Mg Tablet 10 Mg PO UD 06/25/18 Rx Take 3 tablets by mouth twice a day for 3 days, then take 2 tablets by mouth twice a day for 3 days, then take 1 tablet by mouth twice a day for 3 days, then take 1 tablet by mouth daily x 3 days, then stop. Furosemide 40 Mg Tablet 1 Tab PO DAILY 06/20/18 Reported Guaifenesin 100 Mg/5 Ml Liquid 200 Mg PO PRN Q4HRS PRN 30 05/30/18 Rx Tylenol (Acetaminophen) 325 Mg Tablet 650 Mg PO PRN Q4HRS PRN 10 05/30/18 Rx Ventolin Hfa Inhaler (Albuterol Sulfate) 18 Gm Hfa.aer.ad 2 Puff INH Q4HRS 05/10/18 Rx Vitamin D3 (Cholecalciferol (Vitamin D3)) 5,000 Unit Tablet 5,000 Unit PO DAILY 03/15/18 Reported Reglan (Metoclopramide Hcl) 10 Mg Tablet 0.5 Tab PO QID 30 02/14/18 Rx Potassium Chloride 20 Meq Tablet.er 20 Meq PO DAILY 01/13/18 Reported Protonix (Pantoprazole Sodium) 20 Mg Tablet.dr 1 Tab PO DAILY 11/18/17 Reported Flonase Allergy Relief (Fluticasone Propionate) 9.9 Ml [place].susp 2 Sprays NS DAILY 11/18/17 Reported Atorvastatin Calcium 10 Mg Tablet 10 Mg PO HS 08/21/17 Reported Albuterol Sulfate Neb Soln (Albuterol Sulfate) 2.5 Mg/3 Ml Vial.neb 1 Vial NEB PRN Q4HRS 07/10/17 Rx Symbicort 160-4.5 Mcg Inhaler (Budesonide/Formoterol Fumarate) 10.2 Gm Hfa.aer.ad 2 Puff IH BID 09/21/15 Reported Impression . FULL NOTE DICTATED AGREE WITH CURRENT RX THANKS SCOTT COOK MD Jul 15, 2018 15:26
--- NOTE | 2018-07-15 16:43 | RAD ---
CHEST AP ONLY 10:25 PM Clinical indications: PICC line placement. COMPARISON: July 04, 2018. IMPRESSION: A right upper extremity PICC line is in place and tip is seen within the lower SVC just above the level of the right atrium. Chronic interstitial lung disease is seen bilaterally. 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 Electronically signed by: Fransico Lindsey MD (07/15/2018 4:40 PM) [id number]
[2018-07-15] MEDS: traMADol 50 MG TABLET PO PRN ×2 (16:47→23:12)
[2018-07-15 19:00] VITALS: BP 142/82
[2018-07-15] MEDS: LACTOBACILLUS RHAMNOSUS GG 1 CAPSULE. PO SCH (21:45)
[2018-07-15] MEDS: ATORVASTATIN CALCIUM 10 MG TABLET. PO SCH (21:45)
[2018-07-15 22:47] VITALS: BP 141/86
[2018-07-15] MEDS: MORPHINE SULFATE 2 MG/ML VIAL. IV PRN (23:12)
[2018-07-15] MEDS: tiZANidine 4 MG TABLET. PO PRN (23:12)
--- NOTE | 2018-07-16 02:30 | CONS ---
DATE OF CONSULTATION: 07/15/2018 ATTENDING PHYSICIAN: Dar Hathaway DO. CONSULTING PHYSICIAN: Scott Cook M.D. REASON FOR CONSULTATION: The patient is seen in Pulmonary consultation at the request of Dr. Hathaway for increasing shortness of air. 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 He has been evaluated in the past for bullectomy, was a nonsurgical candidate. He has chronic respiratory failure, on oxygen supplementation. He was at a snf, rehabilitating and became more short of breath. He was placed on a nonrebreather and transferred to the Emergency Department. The patient, upon admission, was unable to complete full sentences. He also had severe chronic back pain. He denies fever or chills. He has a cough, mostly nonproductive. PAST MEDICAL HISTORY: Chronic respiratory failure, as stated above. The patient has been hospitalized on several occasions with similar problem. He has bullous emphysema. He has end-stage COPD, currently being evaluated for the possibility of lung transplant. Unfortunately, he does not have social support or support. Chronic bronchitis. He has had previous alpha-1 antitrypsin in the past which was negative. There is chronic back pain recently diagnosed with compressive fracture. Kyphoplasty was attempted, but he could not lie down without becoming severely short of air. He also has a history of chronic heart failure. PAST SURGICAL HISTORY: No recent major surgeries. REVIEW OF SYSTEMS: CONSTITUTIONAL: No fever or chills. EYES: No change in visual acuity. ENT: No nasal congestion or sore throat. PULMONARY: As indicated above. CARDIOVASCULAR: No chest pain or pressure. GASTROINTESTINAL: No nausea, vomiting or diarrhea. GENITOURINARY: No dysuria. MUSCULOSKELETAL: Chronic back pain. ALLERGIES: ACETAMINOPHEN. MEDICATIONS: Current medication list was reviewed. FAMILY HISTORY: No family history of lung cancer. PHYSICAL EXAMINATION: GENERAL: On examination, the patient was in no respiratory distress. VITAL SIGNS: Stable. O2 saturation greater than 92%. HEENT: Eyes, sclerae were nonicteric. NECK: Jugular venous distention could not be assessed secondary to body habitus. CHEST: Full expansion. LUNGS: Poor airway flow, with no wheezes. CARDIOVASCULAR EXAMINATION: Regular rate and rhythm with S1, S2. No S3. ABDOMEN: Soft, nontender and nondistended. EXTREMITIES: No clubbing, cyanosis or edema. IMPRESSION: 1. Ckyzn-cy-hnmvcyw hypoxemic respiratory failure. 2. Acute exacerbation of chronic obstructive pulmonary disease. 3. Chronic back pain with evidence of compression fracture. 4. Severe bullous emphysema. 5. Chronic right-sided heart failure. PLAN: 1. Continue current support with steroids and oxygen. 2. P.r.n. BiPAP. 3. Diurese. 4. Control pain. I do appreciate the privilege in sharing in the patient's care. SCOTT COOK MD DR: MAVERICK/efrain JOB#: [id number] / [id number]
[2018-07-16 02:52] VITALS: BP 127/52
[2018-07-16 07:00] VITALS: BP 129/75
[2018-07-16] MEDS: IPRATRPIUM/ALBUTEROL 0.5/2.5MG 3 ML NEBU. NEB SCH ×4 (07:34→20:47)
[2018-07-16] MEDS: guaiFENesin ORAL 200 MG/10 ML LIQUID. PO PRN (08:33)
[2018-07-16] MEDS: CHOLECALCIFEROL (VITAMIN D3) 5,000 UNIT CAPSULE PO SCH (08:34)
[2018-07-16] MEDS: DOXYCYCLINE HYCLATE 100 MG TABLET PO SCH ×2 (08:34→21:17)
[2018-07-16] MEDS: POTASSIUM CHLORIDE 20 MEQ TABLET.ER. PO SCH (08:34)
[2018-07-16] MEDS: METOCLOPRAMIDE 10 MG TABLET. PO SCH ×4 (08:34→21:18)
[2018-07-16] MEDS: RIVAROXABAN 15 MG TABLET. PO SCH ×2 (08:34→16:58)
[2018-07-16] MEDS: LACTOBACILLUS RHAMNOSUS GG 1 CAPSULE. PO SCH ×2 (08:34→21:18)
[2018-07-16] MEDS: PANTOPRAZOLE 40 MG TABLET.DR. PO SCH (08:34)
[2018-07-16] MEDS: tiZANidine 4 MG TABLET. PO PRN ×2 (08:34→15:28)
[2018-07-16] MEDS: FUROSEMIDE 40 MG TABLET. PO SCH (08:34)
[2018-07-16] MEDS: traMADol 50 MG TABLET PO PRN ×2 (08:35→15:28)
[2018-07-16] MEDS: methylPREDNISolone SOD SUCC PF 125 MG/2 ML VIAL. IV SCH (08:35)
[2018-07-16] MEDS: FLUTICASONE 50MCG/NASAL SPRAY 16GM BOTTLE. NS SCH (08:35)
--- NOTE | 2018-07-16 08:46 | PDOC ---
PULMONARY PROGRESS NOTES Subjective PT ABOUT THE SAME Vitals Vital Signs Date Time Temp Pulse Resp B/P (MAP) Pulse Ox O2 Delivery O2 Flow Rate FiO2 07/16/18 07:34 97 Nasal Cannula 3.0 07/16/18 07:00 97.7 93 18 129/75 (93) 97.7 ROS: No Nausea, No Abdominal Pain, No Increase Cough General: Alert, No acute distress Lungs: Crackles, Other Cardiovascular: S1, S2 Abdomen: Soft, Non-tender Extremities: No Edema, Other Labs Laboratory Tests Test 07/14/18 15:30 07/14/18 21:15 07/15/18 21:54 White Blood Count 8.5 x10^3/uL (4.0-11.0) Red Blood Count 3.56 x10^6/uL (4.30-5.70) Hemoglobin 10.2 g/dL (13.0-17.5) Hematocrit 31.0 % (39.0-53.0) Mean Corpuscular Volume 87 fL (79-100) Mean Corpuscular Hemoglobin 29 pg (25-35) Mean Corpuscular Hemoglobin Concent 33 g/dL (31-37) Red Cell Distribution Width 16.2 % (11.5-14.5) Platelet Count 180 x10^3/uL (140-400) Neutrophils (%) (Auto) 90 % (31-73) Lymphocytes (%) (Auto) 4 % (24-48) Monocytes (%) (Auto) 6 % (0-9) Eosinophils (%) (Auto) 0 % (0-3) Basophils (%) (Auto) 0 % (0-3) Neutrophils # (Auto) 7.7 x10^3uL (1.8-7.7) Lymphocytes # (Auto) 0.3 x10^3/uL (1.0-4.8) Monocytes # (Auto) 0.5 x10^3/uL (0.0-1.1) Eosinophils # (Auto) 0.0 x10^3/uL (0.0-0.7) Basophils # (Auto) 0.0 x10^3/uL (0.0-0.2) Segmented Neutrophils % 92 % (35-66) Lymphocytes % 2 % (24-48) Monocytes % 6 % (0-10) Platelet Estimate Adequate (ADEQUATE) Prothrombin Time 20.7 SEC (11.7-14.0) Prothromb Time International Ratio 1.8 (0.8-1.1) Sodium Level 141 mmol/L (136-145) Potassium Level 4.7 mmol/L (3.5-5.1) Chloride Level 97 mmol/L (98-107) Carbon Dioxide Level 31 mmol/L (21-32) Anion Gap 13 (6-14) Blood Urea Nitrogen 19 mg/dL (8-26) Creatinine 1.0 mg/dL (0.7-1.3) Estimated GFR (Cockcroft-Gault) 92.5 BUN/Creatinine Ratio 19 (6-20) Glucose Level 177 mg/dL (70-99) Calcium Level 10.1 mg/dL (8.5-10.1) Total Bilirubin 0.3 mg/dL (0.2-1.0) Aspartate Amino Transf (AST/SGOT) 17 U/L (15-37) Alanine Aminotransferase (ALT/SGPT) 30 U/L (16-63) Alkaline Phosphatase 97 U/L (46-116) Troponin I Quantitative < 0.017 ng/mL (0.000-0.055) KQ-Nxc-Z-Type Natriuretic Peptide 24 pg/mL (0-124) Total Protein 6.5 g/dL (6.4-8.2) Albumin 3.4 g/dL (3.4-5.0) Albumin/Globulin Ratio 1.1 (1.0-1.7) Urine Collection Type Unknown Urine Color [place] Urine Clarity Clear Urine pH 6.0 Urine Specific [place] 1.025 Urine Protein Negative mg/dL (NEG-TRACE) Urine Glucose (UA) 100 mg/dL (NEG) Urine Ketones (Stick) Negative mg/dL (NEG) Urine Blood Negative (NEG) Urine Nitrite Negative (NEG) Urine Bilirubin Negative (NEG) Urine Urobilinogen Dipstick 1.0 mg/dL (0.2 mg/dL) Urine Leukocyte Esterase Negative (NEG) Urine RBC Occ /HPF (0-2) Urine WBC Occ /HPF (0-4) Urine Squamous Epithelial Cells Occ /LPF Urine Bacteria 0 /HPF (0-FEW) Urine Hyaline Casts Occasional /HPF Urine Mucus Mod /LPF Glucose (Fingerstick) 196 mg/dL (70-99) Laboratory Tests Test 07/15/18 21:54 Glucose (Fingerstick) 196 mg/dL (70-99) Medications Active Scripts Medications Dose Route/Sig Max Daily Dose Days Date Category Dose Instructions Tramadol Hcl 50 Mg Tablet 50 Mg PO PRN Q6HRS PRN 6 07/12/18 Rx Ativan (Lorazepam) 1 Mg Tablet 1 Mg PO PRN BID PRN 6 07/12/18 Rx Xarelto (Rivaroxaban) 20 Mg Tablet 20 Mg PO DAILY 30 07/12/18 Rx START on 07/20/2018 FENTANYL 25mcg/hr (Fentanyl) 1 Each Patch.td72 1 Patch TD Q3DAYS 30 07/12/18 Rx Xarelto (Rivaroxaban) 15 Mg Tablet 15 Mg PO BIDWMEALS 7 07/12/18 Rx On Day 8 transition to 20mg Xarelto Doxycycline Hyclate 100 Mg Tablet 100 Mg PO BID 5 07/12/18 Rx Prednisone (Prednisone) 10 Mg Tablet 10 Mg PO UD 06/25/18 Rx Take 3 tablets by mouth twice a day for 3 days, then take 2 tablets by mouth twice a day for 3 days, then take 1 tablet by mouth twice a day for 3 days, then take 1 tablet by mouth daily x 3 days, then stop. Furosemide 40 Mg Tablet 1 Tab PO DAILY 06/20/18 Reported Guaifenesin 100 Mg/5 Ml Liquid 200 Mg PO PRN Q4HRS PRN 30 05/30/18 Rx Tylenol (Acetaminophen) 325 Mg Tablet 650 Mg PO PRN Q4HRS PRN 10 05/30/18 Rx Ventolin Hfa Inhaler (Albuterol Sulfate) 18 Gm Hfa.aer.ad 2 Puff INH Q4HRS 05/10/18 Rx Vitamin D3 (Cholecalciferol (Vitamin D3)) 5,000 Unit Tablet 5,000 Unit PO DAILY 03/15/18 Reported Reglan (Metoclopramide Hcl) 10 Mg Tablet 0.5 Tab PO QID 30 02/14/18 Rx Potassium Chloride 20 Meq Tablet.er 20 Meq PO DAILY 01/13/18 Reported Protonix (Pantoprazole Sodium) 20 Mg Tablet.dr 1 Tab PO DAILY 11/18/17 Reported Flonase Allergy Relief (Fluticasone Propionate) 9.9 Ml [place].susp 2 Sprays NS DAILY 11/18/17 Reported Atorvastatin Calcium 10 Mg Tablet 10 Mg PO HS 08/21/17 Reported Albuterol Sulfate Neb Soln (Albuterol Sulfate) 2.5 Mg/3 Ml Vial.neb 1 Vial NEB PRN Q4HRS 07/10/17 Rx Symbicort 160-4.5 Mcg Inhaler (Budesonide/Formoterol Fumarate) 10.2 Gm Hfa.aer.ad 2 Puff IH BID 09/21/15 Reported Impression . IMPRESSION: 1. Vljki-gz-gosesir hypoxemic respiratory failure. 2. Acute exacerbation of chronic obstructive pulmonary disease. 3. Chronic back pain with evidence of compression fracture. 4. Severe bullous emphysema. 5. Chronic right-sided heart failure. Plan . D/W ANESTHESIA WILL SET UP OUT PT KYPHOPLASTY WITH INTUBATION WILL D/W DR REYES NEXT WEEK PRN BIPAP WILL CHECK TO SEE IF BIPAP WILL BE COVERED BY INSURANCE FOR HOME USE, PT WITH RECURRENT HYPERCAPNIA RESP FAILURE I THINK NIV WITH BIPAP OR TRILOGY WILL PREVENT READMISSION SCOTT COOK MD Jul 16, 2018 08:46
[2018-07-16] MEDS: ANTI-COAG MONITOR BY PHARMACY. MC PRN (10:41)
[2018-07-16] MEDS: LIDOCAINE (700MG/PATCH) PATCH. TD SCH (10:41)
[2018-07-16 11:00] VITALS: BP 99/59
--- NOTE | 2018-07-16 11:22 | PDOC ---
[facility] [facility] PROGRESS NOTE Chief Complaint Chief Complaint Multifactorial respiratory failure with Recent bilateral pulmonary emboli on chronic anticoagulation CHF COPD Bronchitis Probable ELVIN Multiple comorbidities History of Present Illness History of Present Illness Patient seen and examined. Discussed with case management and Dr. Viera Tolerated BiPAP last each night while here , apparently he doesn't have BiPAP at home but does have CPAP prefer to have BiPAP. Case management, try to arrange home BiPAP Vitals Vitals Vital Signs Date Time Temp Pulse Resp B/P (MAP) Pulse Ox O2 Delivery O2 Flow Rate FiO2 07/16/18 11:00 98.6 102 14 99/59 (72) 99 Nasal Cannula 3.0 98.6 Physical Exam General: Alert, Oriented X3, Cooperative, No acute distress Heart: Regular rate (SR/ST), Normal S1, Normal S2 Lungs: Crackles, Other Abdomen: Soft Extremities: Normal pulses, Other (trace bilateral pedal edema ) Skin: No significant lesion Labs Labs: Laboratory Tests Test 07/15/18 21:54 Glucose (Fingerstick) 196 mg/dL (70-99) Review of Systems Review of Systems Complains of severe shortness breath and weakness Assessment and Plan Assessmemt and Plan Respiratory failure, multifactorial including recent pulmonary emboli on chronic anticoagulation probable heart failure, chronic obstructive pulmonary disease, and recent pulmonary emboli. Plan Hope to arrange home BiPAP if insurance will pay for?? Pulmonary and Cardiology. Following. Serial enzymes, serial EKGs, Cardiac monitoring, IV antibiotics Steroids Nebs O2 per nasal cannula with BiPAP at night Home meds. Continue the anticoagulation. Comment Review of Relevant I have reviewed the following items franki (where applicable) has been applied. Labs Laboratory Tests Test 07/14/18 15:30 07/14/18 21:15 07/15/18 21:54 White Blood Count 8.5 x10^3/uL (4.0-11.0) Red Blood Count 3.56 x10^6/uL (4.30-5.70) Hemoglobin 10.2 g/dL (13.0-17.5) Hematocrit 31.0 % (39.0-53.0) Mean Corpuscular Volume 87 fL (79-100) Mean Corpuscular Hemoglobin 29 pg (25-35) Mean Corpuscular Hemoglobin Concent 33 g/dL (31-37) Red Cell Distribution Width 16.2 % (11.5-14.5) Platelet Count 180 x10^3/uL (140-400) Neutrophils (%) (Auto) 90 % (31-73) Lymphocytes (%) (Auto) 4 % (24-48) Monocytes (%) (Auto) 6 % (0-9) Eosinophils (%) (Auto) 0 % (0-3) Basophils (%) (Auto) 0 % (0-3) Neutrophils # (Auto) 7.7 x10^3uL (1.8-7.7) Lymphocytes # (Auto) 0.3 x10^3/uL (1.0-4.8) Monocytes # (Auto) 0.5 x10^3/uL (0.0-1.1) Eosinophils # (Auto) 0.0 x10^3/uL (0.0-0.7) Basophils # (Auto) 0.0 x10^3/uL (0.0-0.2) Segmented Neutrophils % 92 % (35-66) Lymphocytes % 2 % (24-48) Monocytes % 6 % (0-10) Platelet Estimate Adequate (ADEQUATE) Prothrombin Time 20.7 SEC (11.7-14.0) Prothromb Time International Ratio 1.8 (0.8-1.1) Sodium Level 141 mmol/L (136-145) Potassium Level 4.7 mmol/L (3.5-5.1) Chloride Level 97 mmol/L (98-107) Carbon Dioxide Level 31 mmol/L (21-32) Anion Gap 13 (6-14) Blood Urea Nitrogen 19 mg/dL (8-26) Creatinine 1.0 mg/dL (0.7-1.3) Estimated GFR (Cockcroft-Gault) 92.5 BUN/Creatinine Ratio 19 (6-20) Glucose Level 177 mg/dL (70-99) Calcium Level 10.1 mg/dL (8.5-10.1) Total Bilirubin 0.3 mg/dL (0.2-1.0) Aspartate Amino Transf (AST/SGOT) 17 U/L (15-37) Alanine Aminotransferase (ALT/SGPT) 30 U/L (16-63) Alkaline Phosphatase 97 U/L (46-116) Troponin I Quantitative < 0.017 ng/mL (0.000-0.055) ZN-Ugx-B-Type Natriuretic Peptide 24 pg/mL (0-124) Total Protein 6.5 g/dL (6.4-8.2) Albumin 3.4 g/dL (3.4-5.0) Albumin/Globulin Ratio 1.1 (1.0-1.7) Urine Collection Type Unknown Urine Color [place] Urine Clarity Clear Urine pH 6.0 Urine Specific [place] 1.025 Urine Protein Negative mg/dL (NEG-TRACE) Urine Glucose (UA) 100 mg/dL (NEG) Urine Ketones (Stick) Negative mg/dL (NEG) Urine Blood Negative (NEG) Urine Nitrite Negative (NEG) Urine Bilirubin Negative (NEG) Urine Urobilinogen Dipstick 1.0 mg/dL (0.2 mg/dL) Urine Leukocyte Esterase Negative (NEG) Urine RBC Occ /HPF (0-2) Urine WBC Occ /HPF (0-4) Urine Squamous Epithelial Cells Occ /LPF Urine Bacteria 0 /HPF (0-FEW) Urine Hyaline Casts Occasional /HPF Urine Mucus Mod /LPF Glucose (Fingerstick) 196 mg/dL (70-99) Laboratory Tests Test 07/15/18 21:54 Glucose (Fingerstick) 196 mg/dL (70-99) Medications Current Medications Albuterol/ Ipratropium (Duoneb) 3 ml 1X ONCE NEB Last administered on 07/14/18at 15:30; Start 07/14/18 at 15:30; Stop 07/14/18 at 15:31; Status DC Methylprednisolone Sodium Succinate (SOLU-Medrol 125MG VIAL) 125 mg 1X ONCE IV Last administered on 07/14/18at 15:50; Start 07/14/18 at 15:30; Stop 07/14/18 at 15:31; Status DC Iohexol (Omnipaque 350 Mg/ml) 100 ml 1X ONCE IV ; Start 07/14/18 at 16:30; Stop 07/14/18 at 16:31; Status DC Info (CONTRAST GIVEN -- Rx MONITORING) 1 each PRN DAILY PRN MC SEE COMMENTS; Start 07/14/18 at 16:30; Stop 07/16/18 at 16:29 Sodium Chloride 500 ml @ 500 mls/hr 1X ONCE IV Last administered on 07/14/18at 23:40; Start 07/14/18 at 17:15; Stop 07/14/18 at 18:14; Status DC Azithromycin 500 mg/Sodium Chloride 250 ml @ 250 mls/hr 1X ONCE IV ; Start 07/14/18 at 17:15; Stop 07/14/18 at 18:14; Status UNV Azithromycin 250 ml @ 250 mls/hr 1X ONCE IV Last administered on 07/14/18 23:40; Start 07/14/18 at 17:15; Stop 07/14/18 at 18:14; Status DC Ondansetron HCl (Zofran) 4 mg PRN Q8HRS PRN IV NAUSEA/VOMITING; Start 07/14/18 at 17:30; Stop 07/15/18 at 17:29; Status DC Morphine Sulfate (Morphine Sulfate) 2 mg PRN Q2HR PRN IV PAIN; Start 07/14/18 at 17:30; Stop 07/15/18 at 17:29; Status DC Albuterol/ Ipratropium (Duoneb) 3 ml RTQID NEB Last administered on 07/16/18 07:34; Start 07/14/18 at 20:00 Albuterol Sulfate (Ventolin Neb Soln) 2.5 mg PRN Q4HRS PRN NEB SHORTNESS OF BREATH Last administered on 07/15/18 01:06; Start 07/14/18 at 20:15 Atorvastatin Calcium (Lipitor) 10 mg HS PO Last administered on 07/15/18 21:45; Start 07/14/18 at 21:00 Doxycycline Hyclate (Vibra-Tab) 100 mg BID PO Last administered on 07/16/18 08:34; Start 07/14/18 at 21:00 Fentanyl (Duragesic 25mcg/ Hr Patch) 1 patch Q3DAYS TD Last administered on 07/15/18 08:32; Start 07/15/18 at 09:00 Furosemide (Lasix) 40 mg DAILY PO Last administered on 07/16/18 08:34; Start 07/15/18 at 09:00 Guaifenesin (Robitussin) 200 mg PRN Q4HRS PRN PO COUGH Last administered on 07/16/18 08:33; Start 07/14/18 at 20:45 Lorazepam (Ativan) 1 mg PRN BID PRN PO ANXIETY / AGITATION Last administered on 07/15/18 21:45; Start 07/14/18 at 20:45 Metoclopramide HCl (Reglan) 5 mg QIDACHS PO Last administered on 07/16/18 08:34; Start 07/14/18 at 21:00 Budesonide (Pulmicort) 0.5 mg RTBID NEB ; Start 07/15/18 at 08:00; Stop 07/15/18 at 08:00; Status DC Vitamin D (Vitamin D3) 5,000 unit DAILY PO Last administered on 07/16/18 08:34; Start 07/15/18 at 09:00 Fluticasone Propionate (Flonase) 2 spray DAILY NS Last administered on 07/16/18 08:35; Start 07/15/18 at 09:00 Pantoprazole Sodium (Protonix) 40 mg DAILYAC PO Last administered on 07/16/18 08:34; Start 07/15/18 at 07:30 Potassium Chloride (Klor-Con) 20 meq DAILYWBKFT PO Last administered on 07/16/18 08:34; Start 07/15/18 at 08:00 Acetaminophen (Tylenol) 650 mg PRN Q4HRS PRN PO TEMP OVER 100.4F OR MILD PAIN; Start 07/14/18 at 21:30 Rivaroxaban (Xarelto) 15 mg BIDWMEALS PO Last administered on 07/16/18 08:34; Start 07/15/18 at 08:00; Stop 07/18/18 at 18:00 Tramadol HCl (Ultram) 50 mg PRN Q6HRS PRN PO MODERATE PAIN Last administered on 07/16/18 08:35; Start 07/14/18 at 21:30 Non-Formulary Medication (Albuterol Sulfate (Ventolin Hfa Inhaler)) 2 puff Q4HRS INH ; Start 07/15/18 at 00:00; Status UNV Rivaroxaban (Xarelto) 20 mg DAILY PO ; Start 07/19/18 at 09:00 Albuterol Sulfate (Ventolin Neb Soln) 2.5 mg Q4H NEB ; Start 07/15/18 at 00:00; Stop 07/15/18 at 00:00; Status DC Methylprednisolone Sodium Succinate (SOLU-Medrol 125MG VIAL) 60 mg Q12HR IV Last administered on 07/15/18 08:33; Start 07/15/18 at 01:45; Stop 07/15/18 at 15:26; Status DC Sodium Chloride ([place] Saline Nasal) 1 elieser PRN DAILY PRN NS NASAL CONGESTION Last administered on 07/15/18 08:30; Start 07/15/18 at 01:45 Info (Anti-Coagulation Monitoring By Pharmacy) 1 each PRN DAILY PRN MC SEE COMMENTS Last administered on 07/16/18 10:41; Start 07/15/18 at 09:30 Lactobacillus Rhamnosus (Culturelle) 1 cap BID PO Last administered on 07/16/18 08:34; Start 07/15/18 at 21:00 Methylprednisolone Sodium Succinate (SOLU-Medrol 125MG VIAL) 60 mg DAILY IV Last administered on 07/16/18 08:35; Start 07/16/18 at 09:00 Morphine Sulfate (Morphine Sulfate) 2 mg PRN Q2HR PRN IV PAIN Last administered on 07/15/18 23:12; Start 07/15/18 at 22:30 Tizanidine HCl (Zanaflex) 4 mg PRN Q6HRS PRN PO MUSCLE SPASMS Last administered on 07/16/18 08:34; Start 07/15/18 at 22:30 Lidocaine (Lidoderm) 1 patch DAILY TD Last administered on 07/16/18 10:41; Start 07/16/18 at 10:30 Miscellaneous (Lidoderm Patch Removal) 1 ea QHS ; Start 07/16/18 at 21:00 Active Scripts Active Tramadol Hcl 50 Mg Tablet 50 Mg PO PRN Q6HRS PRN 6 Days Ativan (Lorazepam) 1 Mg Tablet 1 Mg PO PRN BID PRN 6 Days Xarelto (Rivaroxaban) 20 Mg Tablet 20 Mg PO DAILY 30 Days START on 07/20/2018 FENTANYL 25mcg/hr (Fentanyl) 1 Each Patch.td72 1 Patch TD Q3DAYS 30 Days Xarelto (Rivaroxaban) 15 Mg Tablet 15 Mg PO BIDWMEALS 7 Days On Day 8 transition to 20mg Xarelto Doxycycline Hyclate 100 Mg Tablet 100 Mg PO BID 5 Days Prednisone (Prednisone) 10 Mg Tablet 10 Mg PO UD Take 3 tablets by mouth twice a day for 3 days, then take 2 tablets by mouth twice a day for 3 days, then take 1 tablet by mouth twice a day for 3 days, then take 1 tablet by mouth daily x 3 days, then stop. Guaifenesin 100 Mg/5 Ml Liquid 200 Mg PO PRN Q4HRS PRN 30 Days Tylenol (Acetaminophen) 325 Mg Tablet 650 Mg PO PRN Q4HRS PRN 10 Days Ventolin Hfa Inhaler (Albuterol Sulfate) 18 Gm Hfa.aer.ad 2 Puff INH Q4HRS Reglan (Metoclopramide Hcl) 10 Mg Tablet 0.5 Tab PO QID 30 Days Albuterol Sulfate Neb Soln (Albuterol Sulfate) 2.5 Mg/3 Ml Vial.neb 1 Vial NEB PRN Q4HRS Reported Furosemide 40 Mg Tablet 1 Tab PO DAILY Vitamin D3 (Cholecalciferol (Vitamin D3)) 5,000 Unit Tablet 5,000 Unit PO DAILY Potassium Chloride 20 Meq Tablet.er 20 Meq PO DAILY Protonix (Pantoprazole Sodium) 20 Mg Tablet.dr 1 Tab PO DAILY Flonase Allergy Relief (Fluticasone Propionate) 9.9 Ml [place].susp 2 Sprays NS DAILY Atorvastatin Calcium 10 Mg Tablet 10 Mg PO HS Symbicort 160-4.5 Mcg Inhaler (Budesonide/Formoterol Fumarate) 10.2 Gm Hfa.aer.ad 2 Puff IH BID Vitals/I & O Vital Sign - Last 24 Hours 07/15/18 07/15/18 07/15/18 07/15/18 12:32 12:41 15:00 16:09 Temp 97.3 97.3 Pulse 122 Resp 20 B/P (MAP) 118/71 (87) Pulse Ox 100 100 96 100 O2 Delivery Nasal Cannula Nasal Cannula Nasal Cannula Nasal Cannula O2 Flow Rate 3.0 2.0 2.0 2.0 07/15/18 07/15/18 07/15/18 07/15/18 16:47 17:47 19:00 20:17 Temp 98.5 98.5 Pulse 61 Resp 18 17 18 B/P (MAP) 142/82 (102) Pulse Ox 98 O2 Delivery Nasal Cannula Nasal Cannula Nasal Cannula O2 Flow Rate 3.0 3.0 3.0 07/15/18 07/15/18 07/15/18 07/15/18 21:17 22:15 22:47 23:12 Temp 98.5 98.5 Pulse 82 Resp 18 B/P (MAP) 141/86 (104) Pulse Ox 97 100 100 O2 Delivery Nasal Cannula BiPAP/CPAP Nasal Cannula Nasal Cannula O2 Flow Rate 3.0 3.0 3.0 07/15/18 07/16/18 07/16/18 07/16/18 23:12 00:16 00:16 02:52 Temp 98.4 98.4 Pulse 100 Resp 18 B/P (MAP) 127/52 (77) Pulse Ox 98 O2 Delivery Nasal Cannula Nasal Cannula Nasal Cannula Nasal Cannula O2 Flow Rate 3.0 3.0 3.0 3.0 07/16/18 07/16/18 07/16/18 07:00 07:34 11:00 Temp 97.7 98.6 97.7 98.6 Pulse 93 102 Resp 18 14 B/P (MAP) 129/75 (93) 99/59 (72) Pulse Ox 100 97 99 O2 Delivery Nasal Cannula Nasal Cannula Nasal Cannula O2 Flow Rate 3.0 3.0 3.0 Intake and Output 07/15/18 07/15/18 07/16/18 15:00 23:00 07:00 Intake Total 850 ml 350 ml 200 ml Output Total 900 ml 400 ml Balance -50 ml -50 ml 200 ml TAMMY MARKS III DO Jul 16, 2018 11:22
[2018-07-16 15:00] VITALS: BP 111/78
--- NOTE | 2018-07-16 15:48 | NUR ---
SW following pt. Spoke with pt and pt stated he would like to return to [facility] upon dc. Discussed regarding trilogy with Minerva from [facility] and order form is left on pt's chart for Physician to sign. JACOB faxed clinicals to [facility]. Discussed with RN and Physician notified.
[2018-07-16] MEDS ORDERED: DEXTROSE 50% 25 GM / 50ML DISP.SYRIN. IV PRN (16:15)
[2018-07-16] MEDS: INSULIN LISPRO 300 UNITS/3 ML INSULN.PEN. SQ SCH (17:01)
[2018-07-16 19:00] VITALS: BP 121/78
[2018-07-16] MEDS: MORPHINE SULFATE 2 MG/ML VIAL. IV PRN (20:12)
[2018-07-16] MEDS: PATCH REMOVAL. MC SCH (21:00)
[2018-07-16] MEDS: ATORVASTATIN CALCIUM 10 MG TABLET. PO SCH (21:17)
[2018-07-16] MEDS: INSULIN GLARGINE 300 UNITS/3 ML INSULN.PEN. SQ SCH (21:22)
[2018-07-16 23:00] VITALS: BP 113/79
[2018-07-17] MEDS: traMADol 50 MG TABLET PO PRN ×4 (01:03→21:27)
[2018-07-17] MEDS: tiZANidine 4 MG TABLET. PO PRN ×4 (01:03→21:14)
[2018-07-17 03:00] VITALS: BP 129/88
[2018-07-17] MEDS: IPRATRPIUM/ALBUTEROL 0.5/2.5MG 3 ML NEBU. NEB SCH ×4 (05:34→20:00)
[2018-07-17] MEDS: MORPHINE SULFATE 2 MG/ML VIAL. IV PRN ×2 (05:34→12:22)
[2018-07-17] MEDS: guaiFENesin ORAL 200 MG/10 ML LIQUID. PO PRN ×3 (05:37→21:26)
[2018-07-17 07:00] VITALS: BP 130/78
[2018-07-17] MEDS: ALBUTEROL SULFATE 2.5 MG/3 ML NEBU. NEB PRN (07:57)
[2018-07-17] MEDS: INSULIN LISPRO 300 UNITS/3 ML INSULN.PEN. SQ SCH ×3 (08:00→16:54)
--- NOTE | 2018-07-17 08:46 | PDOC ---
PULMONARY PROGRESS NOTES Subjective patient still SOA minimal exertion Vitals Vital Signs Date Time Temp Pulse Resp B/P (MAP) Pulse Ox O2 Delivery O2 Flow Rate FiO2 07/17/18 07:58 99 Nasal Cannula 3.0 07/17/18 07:00 98.0 106 18 130/78 (95) 98.0 ROS: No Nausea, No Abdominal Pain, No Increase Cough General: Alert, No acute distress Lungs: Crackles, Other Cardiovascular: S1, S2 Abdomen: Soft, Non-tender Extremities: No Edema, Other Labs Laboratory Tests Test 07/15/18 21:54 07/16/18 11:56 07/16/18 16:37 07/16/18 20:34 Glucose (Fingerstick) 196 mg/dL (70-99) 284 mg/dL (70-99) 232 mg/dL (70-99) 163 mg/dL (70-99) Test 07/17/18 07:22 Glucose (Fingerstick) 114 mg/dL (70-99) Laboratory Tests Test 07/16/18 11:56 07/16/18 16:37 07/16/18 20:34 07/17/18 07:22 Glucose (Fingerstick) 284 mg/dL (70-99) 232 mg/dL (70-99) 163 mg/dL (70-99) 114 mg/dL (70-99) Medications Active Scripts Medications Dose Route/Sig Max Daily Dose Days Date Category Dose Instructions Tramadol Hcl 50 Mg Tablet 50 Mg PO PRN Q6HRS PRN 6 07/12/18 Rx Ativan (Lorazepam) 1 Mg Tablet 1 Mg PO PRN BID PRN 6 07/12/18 Rx Xarelto (Rivaroxaban) 20 Mg Tablet 20 Mg PO DAILY 30 07/12/18 Rx START on 07/20/2018 FENTANYL 25mcg/hr (Fentanyl) 1 Each Patch.td72 1 Patch TD Q3DAYS 30 07/12/18 Rx Xarelto (Rivaroxaban) 15 Mg Tablet 15 Mg PO BIDWMEALS 7 07/12/18 Rx On Day 8 transition to 20mg Xarelto Doxycycline Hyclate 100 Mg Tablet 100 Mg PO BID 07/12/18 Rx Prednisone (Prednisone) 10 Mg Tablet 10 Mg PO UD 06/25/18 Rx Take 3 tablets by mouth twice a day for 3 days, then take 2 tablets by mouth twice a day for 3 days, then take 1 tablet by mouth twice a day for 3 days, then take 1 tablet by mouth daily x 3 days, then stop. Furosemide 40 Mg Tablet 1 Tab PO DAILY 06/20/18 Reported Guaifenesin 100 Mg/5 Ml Liquid 200 Mg PO PRN Q4HRS PRN 30 05/30/18 Rx Tylenol (Acetaminophen) 325 Mg Tablet 650 Mg PO PRN Q4HRS PRN 10 05/30/18 Rx Ventolin Hfa Inhaler (Albuterol Sulfate) 18 Gm Hfa.aer.ad 2 Puff INH Q4HRS 05/10/18 Rx Vitamin D3 (Cholecalciferol (Vitamin D3)) 5,000 Unit Tablet 5,000 Unit PO DAILY 03/15/18 Reported Reglan (Metoclopramide Hcl) 10 Mg Tablet 0.5 Tab PO QID 30 02/14/18 Rx Potassium Chloride 20 Meq Tablet.er 20 Meq PO DAILY 01/13/18 Reported Protonix (Pantoprazole Sodium) 20 Mg Tablet.dr 1 Tab PO DAILY 11/18/17 Reported Flonase Allergy Relief (Fluticasone Propionate) 9.9 Ml [place].susp 2 Sprays NS DAILY 11/18/17 Reported Atorvastatin Calcium 10 Mg Tablet 10 Mg PO HS 08/21/17 Reported Albuterol Sulfate Neb Soln (Albuterol Sulfate) 2.5 Mg/3 Ml Vial.neb 1 Vial NEB PRN Q4HRS 07/10/17 Rx Symbicort 160-4.5 Mcg Inhaler (Budesonide/Formoterol Fumarate) 10.2 Gm Hfa.aer.ad 2 Puff IH BID 09/21/15 Reported Impression . IMPRESSION: 1. [id number] hypoxemic respiratory failure. 2. Acute exacerbation of chronic obstructive pulmonary disease. 3. Chronic back pain with evidence of compression fracture. 4. Severe bullous emphysema. 5. Chronic right-sided heart failure. Plan . filed out form for noninvasive ventilation at home. patient will greatly benefit from noninvasive ventilation, to prevent readmissions. acute cor pulmonale SCOTT COOK MD Jul 17, 2018 08:46
[2018-07-17] MEDS: FLUTICASONE 50MCG/NASAL SPRAY 16GM BOTTLE. NS SCH (09:00)
[2018-07-17] MEDS: RIVAROXABAN 15 MG TABLET. PO SCH ×2 (09:33→16:51)
[2018-07-17] MEDS: PANTOPRAZOLE 40 MG TABLET.DR. PO SCH (09:33)
[2018-07-17] MEDS: FUROSEMIDE 40 MG TABLET. PO SCH (09:34)
[2018-07-17] MEDS: POTASSIUM CHLORIDE 20 MEQ TABLET.ER. PO SCH (09:34)
[2018-07-17] MEDS: METOCLOPRAMIDE 10 MG TABLET. PO SCH ×4 (09:34→21:11)
[2018-07-17] MEDS: LACTOBACILLUS RHAMNOSUS GG 1 CAPSULE. PO SCH ×2 (09:34→21:11)
[2018-07-17] MEDS: DOXYCYCLINE HYCLATE 100 MG TABLET PO SCH ×2 (09:34→21:11)
[2018-07-17] MEDS: CHOLECALCIFEROL (VITAMIN D3) 5,000 UNIT CAPSULE PO SCH (09:34)
[2018-07-17] MEDS: LIDOCAINE (700MG/PATCH) PATCH. TD SCH (09:35)
[2018-07-17] MEDS: methylPREDNISolone SOD SUCC PF 125 MG/2 ML VIAL. IV SCH (09:35)
[2018-07-17 11:00] VITALS: BP 99/66
--- NOTE | 2018-07-17 12:29 | PDOC ---
[employer] PROGRESS NOTE Chief Complaint Chief Complaint Multifactorial respiratory failure with Recent bilateral pulmonary emboli on chronic anticoagulation CHF COPD Bronchitis Probable ELVIN Multiple comorbidities History of Present Illness History of Present Illness Patient seen and examined. Discussed with RN Tolerated BiPAP last each night while here , apparently he doesn't have BiPAP at home but does have CPAP prefer to have BiPAP. Case management, try to arrange home BiPAP Vitals Vitals Vital Signs Date Time Temp Pulse Resp B/P (MAP) Pulse Ox O2 Delivery O2 Flow Rate FiO2 07/17/18 11:44 93 Nasal Cannula 3.0 07/17/18 11:00 98.4 101 18 99/66 (77) 98.4 Physical Exam General: Alert, Oriented X3, Cooperative, No acute distress Heart: Regular rate (SR/ST), Normal S1, Normal S2 Lungs: Crackles, Other Abdomen: Soft Extremities: Normal pulses, Other (trace bilateral pedal edema ) Skin: No significant lesion Labs Labs: Laboratory Tests Test 07/16/18 16:37 07/16/18 20:34 07/17/18 07:22 07/17/18 11:22 Glucose (Fingerstick) 232 mg/dL (70-99) 163 mg/dL (70-99) 114 mg/dL (70-99) 160 mg/dL (70-99) Review of Systems Review of Systems Complaining of back pain despite starting the lidocaine patch Assessment and Plan Assessmemt and Plan Multifactorial respiratory failure with Recent bilateral pulmonary emboli on chronic anticoagulation CHF COPD Bronchitis Probable ELVIN Multiple comorbidities Plan Duo nebs and oxygen Pulmonary following Home meds Continue lidocaine patch Add when necessary Lortab Home meds DVT prophylaxis Full code Steroids and antibiotics if pulmonary agrees Comment Review of Relevant I have reviewed the following items franki (where applicable) has been applied. Labs Laboratory Tests Test 07/15/18 21:54 07/16/18 11:56 07/16/18 16:37 07/16/18 20:34 Glucose (Fingerstick) 196 mg/dL (70-99) 284 mg/dL (70-99) 232 mg/dL (70-99) 163 mg/dL (70-99) Test 07/17/18 07:22 07/17/18 11:22 Glucose (Fingerstick) 114 mg/dL (70-99) 160 mg/dL (70-99) Laboratory Tests Test 07/16/18 16:37 07/16/18 20:34 07/17/18 07:22 07/17/18 11:22 Glucose (Fingerstick) 232 mg/dL (70-99) 163 mg/dL (70-99) 114 mg/dL (70-99) 160 mg/dL (70-99) Medications Current Medications Albuterol/ Ipratropium (Duoneb) 3 ml 1X ONCE NEB Last administered on 07/14/18at 15:30; Start 07/14/18 at 15:30; Stop 07/14/18 at 15:31; Status DC Methylprednisolone Sodium Succinate (SOLU-Medrol 125MG VIAL) 125 mg 1X ONCE IV Last administered on 07/14/18at 15:50; Start 07/14/18 at 15:30; Stop 07/14/18 at 15:31; Status DC Iohexol (Omnipaque 350 Mg/ml) 100 ml 1X ONCE IV ; Start 07/14/18 at 16:30; Stop 07/14/18 at 16:31; Status DC Info (CONTRAST GIVEN -- Rx MONITORING) 1 each PRN DAILY PRN MC SEE COMMENTS; Start 07/14/18 at 16:30; Stop 07/16/18 at 16:29; Status DC Sodium Chloride 500 ml @ 500 mls/hr 1X ONCE IV Last administered on 07/14/18at 23:40; Start 07/14/18 at 17:15; Stop 07/14/18 at 18:14; Status DC Azithromycin 500 mg/Sodium Chloride 250 ml @ 250 mls/hr 1X ONCE IV ; Start 07/14/18 at 17:15; Stop 07/14/18 at 18:14; Status UNV Azithromycin 250 ml @ 250 mls/hr 1X ONCE IV Last administered on 07/14/18at 23:40; Start 07/14/18 at 17:15; Stop 07/14/18 at 18:14; Status DC Ondansetron HCl (Zofran) 4 mg PRN Q8HRS PRN IV NAUSEA/VOMITING; Start 07/14/18 at 17:30; Stop 07/15/18 at 17:29; Status DC Morphine Sulfate (Morphine Sulfate) 2 mg PRN Q2HR PRN IV PAIN; Start 07/14/18 at 17:30; Stop 07/15/18 at 17:29; Status DC Albuterol/ Ipratropium (Duoneb) 3 ml RTQID NEB Last administered on 07/17/18 11:42; Start 07/14/18 at 20:00 Albuterol Sulfate (Ventolin Neb Soln) 2.5 mg PRN Q4HRS PRN NEB SHORTNESS OF BREATH Last administered on 07/17/18 07:57; Start 07/14/18 at 20:15 Atorvastatin Calcium (Lipitor) 10 mg HS PO Last administered on 07/16/18 21:17; Start 07/14/18 at 21:00 Doxycycline Hyclate (Vibra-Tab) 100 mg BID PO Last administered on 07/17/18 09:34; Start 07/14/18 at 21:00 Fentanyl (Duragesic 25mcg/ Hr Patch) 1 patch Q3DAYS TD Last administered on 07/15/18 08:32; Start 07/15/18 at 09:00 Furosemide (Lasix) 40 mg DAILY PO Last administered on 07/17/18 09:34; Start 07/15/18 at 09:00 Guaifenesin (Robitussin) 200 mg PRN Q4HRS PRN PO COUGH Last administered on 07/17/18 05:37; Start 07/14/18 at 20:45 Lorazepam (Ativan) 1 mg PRN BID PRN PO ANXIETY / AGITATION Last administered on 07/15/18 21:45; Start 07/14/18 at 20:45 Metoclopramide HCl (Reglan) 5 mg QIDACHS PO Last administered on 07/17/18 12:21; Start 07/14/18 at 21:00 Budesonide (Pulmicort) 0.5 mg RTBID NEB ; Start 07/15/18 at 08:00; Stop 07/15/18 at 08:00; Status DC Vitamin D (Vitamin D3) 5,000 unit DAILY PO Last administered on 07/17/18 09:34; Start 07/15/18 at 09:00 Fluticasone Propionate (Flonase) 2 spray DAILY NS Last administered on 07/17/18 09:00; Start 07/15/18 at 09:00 Pantoprazole Sodium (Protonix) 40 mg DAILYAC PO Last administered on 07/17/18 09:33; Start 07/15/18 at 07:30 Potassium Chloride (Klor-Con) 20 meq DAILYWBKFT PO Last administered on 07/17/18 09:34; Start 07/15/18 at 08:00 Acetaminophen (Tylenol) 650 mg PRN Q4HRS PRN PO TEMP OVER 100.4F OR MILD PAIN; Start 07/14/18 at 21:30 Rivaroxaban (Xarelto) 15 mg BIDWMEALS PO Last administered on 07/17/18 09:33; Start 07/15/18 at 08:00; Stop 07/18/18 at 18:00 Tramadol HCl (Ultram) 50 mg PRN Q6HRS PRN PO MODERATE PAIN Last administered on 07/17/18 09:33; Start 07/14/18 at 21:30 Non-Formulary Medication (Albuterol Sulfate (Ventolin Hfa Inhaler)) 2 puff Q4HRS INH ; Start 07/15/18 at 00:00; Status UNV Rivaroxaban (Xarelto) 20 mg DAILY PO ; Start 07/19/18 at 09:00 Albuterol Sulfate (Ventolin Neb Soln) 2.5 mg Q4H NEB ; Start 07/15/18 at 00:00; Stop 07/15/18 at 00:00; Status DC Methylprednisolone Sodium Succinate (SOLU-Medrol 125MG VIAL) 60 mg Q12HR IV Last administered on 07/15/18 08:33; Start 07/15/18 at 01:45; Stop 07/15/18 at 15:26; Status DC Sodium Chloride ([place] Saline Nasal) 1 elieser PRN DAILY PRN NS NASAL CONGESTION Last administered on 07/15/18 08:30; Start 07/15/18 at 01:45 Info (Anti-Coagulation Monitoring By Pharmacy) 1 each PRN DAILY PRN MC SEE COMMENTS Last administered on 07/16/18 10:41; Start 07/15/18 at 09:30 Lactobacillus Rhamnosus (Culturelle) 1 cap BID PO Last administered on 07/17/18 09:34; Start 07/15/18 at 21:00 Methylprednisolone Sodium Succinate (SOLU-Medrol 125MG VIAL) 60 mg DAILY IV Last administered on 07/17/18 09:35; Start 07/16/18 at 09:00 Morphine Sulfate (Morphine Sulfate) 2 mg PRN Q2HR PRN IV PAIN Last administered on 07/17/18 12:22; Start 07/15/18 at 22:30 Tizanidine HCl (Zanaflex) 4 mg PRN Q6HRS PRN PO MUSCLE SPASMS Last administered on 07/17/18 09:34; Start 07/15/18 at 22:30 Lidocaine (Lidoderm) 1 patch DAILY TD Last administered on 07/17/18 09:35; Start 07/16/18 at 10:30 Miscellaneous (Lidoderm Patch Removal) 1 ea QHS MC Last administered on 07/16/18 21:00; Start 07/16/18 at 21:00 Insulin Glargine (Lantus) 5 units QHS SQ Last administered on 07/16/18 21:22; Start 07/16/18 at 21:00 Insulin Human Lispro (HumaLOG) 0-7 UNITS TIDWMEALS SQ Last administered on 07/16/18 17:01; Start 07/16/18 at 17:00 Dextrose (Dextrose 50%-Water Syringe) 12.5 gm PRN Q15MIN PRN IV SEE COMMENTS; Start 07/16/18 at 16:15 Active Scripts Active Tramadol Hcl 50 Mg Tablet 50 Mg PO PRN Q6HRS PRN 6 Days Ativan (Lorazepam) 1 Mg Tablet 1 Mg PO PRN BID PRN 6 Days Xarelto (Rivaroxaban) 20 Mg Tablet 20 Mg PO DAILY 30 Days START on 07/20/2018 FENTANYL 25mcg/hr (Fentanyl) 1 Each Patch.td72 1 Patch TD Q3DAYS 30 Days Xarelto (Rivaroxaban) 15 Mg Tablet 15 Mg PO BIDWMEALS 7 Days On Day 8 transition to 20mg Xarelto Doxycycline Hyclate 100 Mg Tablet 100 Mg PO BID 5 Days Prednisone (Prednisone) 10 Mg Tablet 10 Mg PO UD Take 3 tablets by mouth twice a day for 3 days, then take 2 tablets by mouth twice a day for 3 days, then take 1 tablet by mouth twice a day for 3 days, then take 1 tablet by mouth daily x 3 days, then stop. Guaifenesin 100 Mg/5 Ml Liquid 200 Mg PO PRN Q4HRS PRN 30 Days Tylenol (Acetaminophen) 325 Mg Tablet 650 Mg PO PRN Q4HRS PRN 10 Days Ventolin Hfa Inhaler (Albuterol Sulfate) 18 Gm Hfa.aer.ad 2 Puff INH Q4HRS Reglan (Metoclopramide Hcl) 10 Mg Tablet 0.5 Tab PO QID 30 Days Albuterol Sulfate Neb Soln (Albuterol Sulfate) 2.5 Mg/3 Ml Vial.neb 1 Vial NEB PRN Q4HRS Reported Furosemide 40 Mg Tablet 1 Tab PO DAILY Vitamin D3 (Cholecalciferol (Vitamin D3)) 5,000 Unit Tablet 5,000 Unit PO DAILY Potassium Chloride 20 Meq Tablet.er 20 Meq PO DAILY Protonix (Pantoprazole Sodium) 20 Mg Tablet.dr 1 Tab PO DAILY Flonase Allergy Relief (Fluticasone Propionate) 9.9 Ml [place].susp 2 Sprays NS DAILY Atorvastatin Calcium 10 Mg Tablet 10 Mg PO HS Symbicort 160-4.5 Mcg Inhaler (Budesonide/Formoterol Fumarate) 10.2 Gm Hfa.aer.ad 2 Puff IH BID Vitals/I & O Vital Sign - Last 24 Hours 07/16/18 07/16/18 07/16/18 07/16/18 15:00 15:49 19:00 20:00 Temp 98.6 98.0 98.6 98.0 Pulse 104 94 Resp 16 20 B/P (MAP) 111/78 (89) 121/78 (92) Pulse Ox 98 99 98 O2 Delivery Nasal Cannula Nasal Cannula Nasal Cannula Nasal Cannula O2 Flow Rate 3.0 3.0 3.0 3.0 07/16/18 07/16/18 07/16/18 07/17/18 20:12 20:49 23:00 00:50 Temp 97.8 97.8 Pulse 124 Resp 20 B/P (MAP) 113/79 (90) Pulse Ox 97 97 O2 Delivery Nasal Cannula Nasal Cannula Nasal Cannula Nasal Cannula O2 Flow Rate 3.0 3.0 3.0 3.0 07/17/18 07/17/18 07/17/18 07/17/18 01:03 02:08 03:00 05:34 Temp 98.0 98.0 Pulse 99 Resp 18 B/P (MAP) 129/88 (102) Pulse Ox 100 O2 Delivery Nasal Cannula Nasal Cannula Nasal Cannula Nasal Cannula O2 Flow Rate 3.0 3.0 3.0 3.0 607/17/18 07/17/18 07/17/18 05:34 06:28 07:00 07:58 Temp 98.0 98.0 Pulse 106 Resp 18 B/P (MAP) 130/78 (95) Pulse Ox 99 99 O2 Delivery Nasal Cannula Nasal Cannula Nasal Cannula Nasal Cannula O2 Flow Rate 3.0 3.0 3.0 3.0 07/17/18 07/17/18 07/17/18 08:00 11:00 11:44 Temp 98.4 98.4 Pulse 101 Resp 18 B/P (MAP) 99/66 (77) Pulse Ox 99 93 O2 Delivery Nasal Cannula Nasal Cannula Nasal Cannula O2 Flow Rate 3.0 3.0 3.0 Intake and Output 07/16/18 07/16/18 07/17/18 15:00 23:00 07:00 Intake Total 800 ml 400 ml Output Total 1450 ml 450 ml 400 ml Balance -650 ml -50 ml -400 ml TAMMY MARKS III DO Jul 17, 2018 12:29
[2018-07-17 15:00] VITALS: BP 134/87
[2018-07-17 19:02] VITALS: BP 129/84
[2018-07-17] MEDS: PATCH REMOVAL. MC SCH (21:00)
[2018-07-17] MEDS: ATORVASTATIN CALCIUM 10 MG TABLET. PO SCH (21:11)
[2018-07-17] MEDS: INSULIN GLARGINE 300 UNITS/3 ML INSULN.PEN. SQ SCH (21:28)
[2018-07-17 23:53] VITALS: BP 115/72
[2018-07-18] MEDS: ALBUTEROL SULFATE 2.5 MG/3 ML NEBU. NEB PRN (03:17)
[2018-07-18 03:42] VITALS: BP 142/84
[2018-07-18 07:20] VITALS: BP 133/70
[2018-07-18] MEDS: INSULIN LISPRO 300 UNITS/3 ML INSULN.PEN. SQ SCH ×3 (08:00→17:13)
[2018-07-18] MEDS: IPRATRPIUM/ALBUTEROL 0.5/2.5MG 3 ML NEBU. NEB SCH ×4 (08:21→19:17)
--- NOTE | 2018-07-18 08:37 | NUR ---
Late Note: JACOB faxed orders for Trilogy to [facility] on 07/17/18 and left a message for Minerva.
[2018-07-18] MEDS: FLUTICASONE 50MCG/NASAL SPRAY 16GM BOTTLE. NS SCH (09:00)
--- NOTE | 2018-07-18 09:12 | PDOC ---
PULMONARY PROGRESS NOTES Subjective Better today Vitals Vital Signs Date Time Temp Pulse Resp B/P (MAP) Pulse Ox O2 Delivery O2 Flow Rate FiO2 07/18/18 08:23 97 Nasal Cannula 3.0 07/18/18 07:20 98.1 102 18 133/70 (91) 98.1 ROS: No Nausea, No Abdominal Pain, No Increase Cough General: Alert, No acute distress Lungs: Crackles, Other Cardiovascular: S1, S2 Abdomen: Soft, Non-tender Extremities: No Edema, Other Labs Laboratory Tests Test 07/16/18 09:40 07/16/18 11:56 07/16/18 16:37 07/16/18 20:34 Nasal Screen MRSA (PCR) Negative (Negative) Glucose (Fingerstick) 284 mg/dL (70-99) 232 mg/dL (70-99) 163 mg/dL (70-99) Test 07/17/18 07:22 07/17/18 11:22 07/17/18 16:33 07/17/18 20:30 Glucose (Fingerstick) 114 mg/dL (70-99) 160 mg/dL (70-99) 261 mg/dL (70-99) 234 mg/dL (70-99) Test 07/18/18 08:04 Glucose (Fingerstick) 160 mg/dL (70-99) Laboratory Tests Test 07/17/18 11:22 07/17/18 16:33 07/17/18 20:30 07/18/18 08:04 Glucose (Fingerstick) 160 mg/dL (70-99) 261 mg/dL (70-99) 234 mg/dL (70-99) 160 mg/dL (70-99) Medications Active Scripts Medications Dose Route/Sig Max Daily Dose Days Date Category Dose Instructions Tramadol Hcl 50 Mg Tablet 50 Mg PO PRN Q6HRS PRN 6 07/12/18 Rx Ativan (Lorazepam) 1 Mg Tablet 1 Mg PO PRN BID PRN 6 07/12/18 Rx Xarelto (Rivaroxaban) 20 Mg Tablet 20 Mg PO DAILY 30 07/12/18 Rx START on 07/20/2018 FENTANYL 25mcg/hr (Fentanyl) 1 Each Patch.td72 1 Patch TD Q3DAYS 30 07/12/18 Rx Xarelto (Rivaroxaban) 15 Mg Tablet 15 Mg PO BIDWMEALS 7 07/12/18 Rx On Day 8 transition to 20mg Xarelto Doxycycline Hyclate 100 Mg Tablet 100 Mg PO BID 5 07/12/18 Rx Prednisone (Prednisone) 10 Mg Tablet 10 Mg PO UD 06/25/18 Rx Take 3 tablets by mouth twice a day for 3 days, then take 2 tablets by mouth twice a day for 3 days, then take 1 tablet by mouth twice a day for 3 days, then take 1 tablet by mouth daily x 3 days, then stop. Furosemide 40 Mg Tablet 1 Tab PO DAILY 06/20/18 Reported Guaifenesin 100 Mg/5 Ml Liquid 200 Mg PO PRN Q4HRS PRN 30 05/30/18 Rx Tylenol (Acetaminophen) 325 Mg Tablet 650 Mg PO PRN Q4HRS PRN 10 05/30/18 Rx Ventolin Hfa Inhaler (Albuterol Sulfate) 18 Gm Hfa.aer.ad 2 Puff INH Q4HRS 05/10/18 Rx Vitamin D3 (Cholecalciferol (Vitamin D3)) 5,000 Unit Tablet 5,000 Unit PO DAILY 03/15/18 Reported Reglan (Metoclopramide Hcl) 10 Mg Tablet 0.5 Tab PO QID 30 02/14/18 Rx Potassium Chloride 20 Meq Tablet.er 20 Meq PO DAILY 01/13/18 Reported Protonix (Pantoprazole Sodium) 20 Mg Tablet.dr 1 Tab PO DAILY 11/18/17 Reported Flonase Allergy Relief (Fluticasone Propionate) 9.9 Ml [place].susp 2 Sprays NS DAILY 11/18/17 Reported Atorvastatin Calcium 10 Mg Tablet 10 Mg PO HS 08/21/17 Reported Albuterol Sulfate Neb Soln (Albuterol Sulfate) 2.5 Mg/3 Ml Vial.neb 1 Vial NEB PRN Q4HRS 07/10/17 Rx Symbicort 160-4.5 Mcg Inhaler (Budesonide/Formoterol Fumarate) 10.2 Gm Hfa.aer.ad 2 Puff IH BID 09/21/15 Reported Impression . IMPRESSION: 1. [id number]-[id number] hypoxemic respiratory failure. 2. Acute exacerbation of chronic obstructive pulmonary disease. 3. Chronic back pain with evidence of compression fracture. 4. Severe bullous emphysema. 5. Chronic right-sided heart failure. 6. A/C Cor pulmonale Plan . Pt is benefiting from mechanical ventilation Will set up at home to avoid readmission and hypercapnia This will also help manage the Acute/ Chronic Cor pulmonale SCOTT COOK MD Jul 18, 2018 09:12
[2018-07-18] MEDS: METOCLOPRAMIDE 10 MG TABLET. PO SCH ×4 (09:23→21:21)
[2018-07-18] MEDS: DOXYCYCLINE HYCLATE 100 MG TABLET PO SCH ×2 (09:23→21:21)
[2018-07-18] MEDS: LIDOCAINE (700MG/PATCH) PATCH. TD SCH (09:23)
[2018-07-18] MEDS: CHOLECALCIFEROL (VITAMIN D3) 5,000 UNIT CAPSULE PO SCH (09:23)
[2018-07-18] MEDS: RIVAROXABAN 15 MG TABLET. PO SCH ×2 (09:24→17:03)
[2018-07-18] MEDS: FUROSEMIDE 40 MG TABLET. PO SCH (09:24)
[2018-07-18] MEDS: traMADol 50 MG TABLET PO PRN ×2 (09:24→19:38)
[2018-07-18] MEDS: POTASSIUM CHLORIDE 20 MEQ TABLET.ER. PO SCH (09:24)
[2018-07-18] MEDS: tiZANidine 4 MG TABLET. PO PRN ×2 (09:24→19:37)
[2018-07-18] MEDS: PANTOPRAZOLE 40 MG TABLET.DR. PO SCH (09:24)
[2018-07-18] MEDS: fentaNYL 25MCG/HR PATCH 1 PATCH PATCH.TD72 TD SCH (09:25)
[2018-07-18] MEDS: LACTOBACILLUS RHAMNOSUS GG 1 CAPSULE. PO SCH ×2 (09:26→21:21)
[2018-07-18] MEDS: methylPREDNISolone SOD SUCC PF 125 MG/2 ML VIAL. IV SCH (09:26)
[2018-07-18 11:17] VITALS: BP 103/71
--- NOTE | 2018-07-18 11:24 | SNU/HH DC ---
DISCHARGE ORDERS DISCHARGE INFORMATION: CONDITION ON DISCHARGE: Stable CODE STATUS: Code Status: Full SENIOR CARE: SNF STAY <30 DAYS: Yes HOSPICE: HOSPICE: No HOSPICE EVAL & TREAT: No POST DISCHARGE ORDERS: ACTIVITY ORDERS: Activity as tolerated, Bedrest today DIET AFTER DISCHARGE: Cardiac WOUND/INCISION CARE: No wound care needed CHECKS AFTER DISCHARGE: CHECKS AFTER DISCHARGE: Check blood sugar, ac/hs TREATMENT/EQUIPMENT ORDERS: ADAPTIVE EQUIPMENT NEEDED: None RESPIRATORY EQUIPMENT NEEDED: Oxygen Physical Therapy For: Evalulation/Treatment Occupational Therapy For: Evaluation/Treatment Speech Language Pathology For: Evaluation/Treatment DISCHARGE MEDICATIONS: Home Meds Active Scripts Tramadol Hcl (TRAMADOL HCL) 50 Mg Tablet, 50 MG PO PRN Q6HRS PRN for PAIN for 6 Days, #24 TAB Prov:KIRSTIE TREVINO MD 07/12/18 Lorazepam (ATIVAN) 1 Mg Tablet, 1 MG PO PRN BID PRN for ANXIETY / AGITATION for 6 Days, #12 TAB Prov:KIRSTIE TREVINO MD 07/12/18 Rivaroxaban (XARELTO) 20 Mg Tablet, 20 MG PO DAILY for PE for 30 Days, #30 TAB START on 07/20/2018 Prov:KIRSTIE TREVINO MD 07/12/18 Fentanyl (FENTANYL 25mcg/hr) 1 Each Patch.td72, 1 PATCH TD Q3DAYS for T9 compression fx for 30 Days, #10 PATCH Prov:KIRSTIE TREVINO MD 07/12/18 Rivaroxaban (XARELTO) 15 Mg Tablet, 15 MG PO BIDWMEALS for PE for 7 Days, #14 TAB On Day 8 transition to 20mg Xarelto Prov:KIRSTIE TREVINO MD 07/12/18 Doxycycline Hyclate (DOXYCYCLINE HYCLATE) 100 Mg Tablet, 100 MG PO BID for Bacteremia for 5 Days, #10 TAB Prov:KIRSTIE TREVINO MD 07/12/18 Prednisone (PREDNISONE ) 10 Mg Tablet, 10 MG PO UD for PREDNISONE TAPER, #39 TAB 0 Refills Take 3 tablets by mouth twice a day for 3 days, then take 2 tablets by mouth twice a day for 3 days, then take 1 tablet by mouth twice a day for 3 days, then take 1 tablet by mouth daily x 3 days, then stop. Prov:PATRIA SHIELDS MD 06/25/18 Guaifenesin (GUAIFENESIN) 100 Mg/5 Ml Liquid, 200 MG PO PRN Q4HRS PRN for COUGH for 30 Days, #120 LIQUID Prov:TOMAS BAIG MD 05/30/18 Acetaminophen (TYLENOL) 325 Mg Tablet, 650 MG PO PRN Q4HRS PRN for TEMP OVER 100.4F OR MILD PAIN for 10 Days, #30 TAB Prov:TOMAS BAIG MD 05/30/18 Albuterol Sulfate (VENTOLIN HFA INHALER) 18 Gm Hfa.aer.ad, 2 PUFF INH Q4HRS for FOR ASTHMA, #1 INHALER 0 Refills Prov:SD JON APRN 05/10/18 Metoclopramide Hcl (REGLAN) 10 Mg Tablet, 0.5 TAB PO QID for gerd for 30 Days, #60 TAB Prov:TOMAS BAIG MD 02/14/18 Albuterol Sulfate (ALBUTEROL SULFATE NEB SOLN) 2.5 Mg/3 Ml Vial.neb, 1 VIAL NEB PRN Q4HRS, #50 VIAL Prov:TEVIN GOODWIN MD 07/10/17 Reported Medications Furosemide (FUROSEMIDE) 40 Mg Tablet, 1 TAB PO DAILY for water, #30 TAB 5 Refills 06/20/18 Cholecalciferol (Vitamin D3) (VITAMIN D3) 5,000 Unit Tablet, 5000 UNIT PO DAILY for supplement, TAB 03/15/18 Potassium Chloride (POTASSIUM CHLORIDE) 20 Meq Tablet.er, 20 MEQ PO DAILY for supplement, TAB.SR 01/13/18 Pantoprazole Sodium (PROTONIX) 20 Mg Tablet.dr, 1 TAB PO DAILY, #30 TAB 11/18/17 Fluticasone Propionate (Flonase Allergy Relief) 9.9 Ml [place].susp, 2 SPRAYS NS DAILY, BOTTLE 11/18/17 Atorvastatin Calcium (ATORVASTATIN CALCIUM) 10 Mg Tablet, 10 MG PO HS for FOR CHOLESTEROL, #30 TAB 0 Refills 08/21/17 Budesonide/Formoterol Fumarate (SYMBICORT 160-4.5 MCG INHALER) 10.2 Gm Hfa.aer.ad, 2 PUFF IH BID, #10.6 GM 3 Refills 09/21/15 Discontinued Scripts Amoxicillin/Potassium Clav (AUGMENTIN 875-125 TABLET) 1 Each Tablet, 1 TAB PO BID for bronchitis, #12 TAB Prov:PATRIA SHIELDS MD 06/25/18 TAMMY MARKS III DO Jul 18, 2018 11:24
[2018-07-18] MEDS: ANTI-COAG MONITOR BY PHARMACY. MC PRN (12:48)
--- NOTE | 2018-07-18 14:07 | NUR ---
JACOB following. SW phoned and faxed orders to [facility] but they reported pt will need to come with his own trilogy and setting. JACOB spoke with Minerva at [facility] and faxed updated notes from Pulmonary. Awaiting to see if equipment can be delivered to [facility] today.
[2018-07-18 15:15] VITALS: BP 119/72
--- NOTE | 2018-07-18 16:24 | NUR ---
JACOB following pt. JACOB spoke with Minerva at [facility] and they are not able to get equipment delivered to [facility] today due to issue in regards to insurance coverage setting up trilogy in SNF vs home. Minerva reported they are trying to get insurance approval for this and should get it by tomorrow. [facility] report they can not provide a Bipap since their RT are required to take a training by 07/27/18 and there is no one to set up bipap once pt arrives. MARILEE RN.
[2018-07-18 19:05] VITALS: BP 114/73
--- NOTE | 2018-07-18 20:43 | DS ---
DATE OF DISCHARGE: 07/18/2018 ADMISSION DIAGNOSES: Respiratory failure secondary to chronic obstructive pulmonary disease. DISCHARGE DIAGNOSIS: Resolving respiratory failure. CONSULTS: Dr. Crook. PROCEDURES: None. HOSPITAL COURSE: The patient is a pleasant 58-year-old male who has end-stage COPD. Once again, he was hypoxic and presented to the ER. He was in respiratory failure. We admitted the patient, gave him steroids, breathing treatments, oxygen, antibiotics. I consulted Pulmonary. PHYSICAL EXAMINATION: This morning when I saw him: HEART: Tones were normal. LUNGS: Much clearer. He is doing well. EXTREMITIES: Trace edema. SKIN: No obvious rashes. We plan to discharge to correction at the [facility]. DISPOSITION: Skilled. ACTIVITY: As tolerated. DIET: Low sodium. MEDICATIONS: We are resuming his previous home medications. TOTAL TIME: 34 minutes. TAMMY MARKS DO DR: HEATHER/efrain JOB#: [id number] / [id number]
[2018-07-18] MEDS ORDERED: HYDROcodone/APAP 5/325MG 1 TAB TABLET PO PRN (21:00)
[2018-07-18] MEDS: ATORVASTATIN CALCIUM 10 MG TABLET. PO SCH (21:21)
[2018-07-18] MEDS: INSULIN GLARGINE 300 UNITS/3 ML INSULN.PEN. SQ SCH (21:26)
[2018-07-18] MEDS: PATCH REMOVAL. MC SCH (21:27)
[2018-07-18 23:20] VITALS: BP 115/75
[2018-07-19 03:30] VITALS: BP 139/84
[2018-07-19] MEDS: IPRATRPIUM/ALBUTEROL 0.5/2.5MG 3 ML NEBU. NEB SCH ×3 (06:20→15:33)
[2018-07-19 07:15] VITALS: BP 114/82
[2018-07-19] MEDS: INSULIN LISPRO 300 UNITS/3 ML INSULN.PEN. SQ SCH ×3 (08:00→17:04)
[2018-07-19] MEDS ORDERED: RIVAROXABAN 10 MG TABLET. PO SCH (09:00)
[2018-07-19] MEDS: FLUTICASONE 50MCG/NASAL SPRAY 16GM BOTTLE. NS SCH (09:00)
[2018-07-19] MEDS: methylPREDNISolone SOD SUCC PF 125 MG/2 ML VIAL. IV SCH (09:39)
[2018-07-19] MEDS: METOCLOPRAMIDE 10 MG TABLET. PO SCH ×3 (09:40→16:35)
[2018-07-19] MEDS: DOXYCYCLINE HYCLATE 100 MG TABLET PO SCH (09:40)
[2018-07-19] MEDS: CHOLECALCIFEROL (VITAMIN D3) 5,000 UNIT CAPSULE PO SCH (09:40)
[2018-07-19] MEDS: FUROSEMIDE 40 MG TABLET. PO SCH (09:40)
[2018-07-19] MEDS: tiZANidine 4 MG TABLET. PO PRN (09:40)
[2018-07-19] MEDS: POTASSIUM CHLORIDE 20 MEQ TABLET.ER. PO SCH (09:41)
[2018-07-19] MEDS: PANTOPRAZOLE 40 MG TABLET.DR. PO SCH (09:41)
[2018-07-19] MEDS: traMADol 50 MG TABLET PO PRN ×2 (09:41→17:55)
[2018-07-19] MEDS: LACTOBACILLUS RHAMNOSUS GG 1 CAPSULE. PO SCH (09:41)
[2018-07-19] MEDS: LIDOCAINE (700MG/PATCH) PATCH. TD SCH (09:42)
[2018-07-19 11:05] VITALS: BP 88/62
--- NOTE | 2018-07-19 11:08 | PDOC ---
PULMONARY PROGRESS NOTES Subjective ON NON INVASIVE VENTILATOR AT NIGHT 02 N/C DAY Vitals Vital Signs Date Time Temp Pulse Resp B/P (MAP) Pulse Ox O2 Delivery O2 Flow Rate FiO2 07/19/18 07:15 98.1 98 18 114/82 (93) 95 Nasal Cannula 3.0 98.1 ROS: No Nausea, No Abdominal Pain, No Increase Cough General: Alert, No acute distress Lungs: Crackles, Other Cardiovascular: S1, S2 Abdomen: Soft, Non-tender Extremities: No Edema, Other Labs Laboratory Tests Test 07/17/18 11:22 07/17/18 16:33 07/17/18 20:30 07/18/18 08:04 Glucose (Fingerstick) 160 mg/dL (70-99) 261 mg/dL (70-99) 234 mg/dL (70-99) 160 mg/dL (70-99) Test 07/18/18 11:00 07/18/18 17:03 07/18/18 20:36 07/19/18 07:24 Glucose (Fingerstick) 193 mg/dL (70-99) 293 mg/dL (70-99) 163 mg/dL (70-99) 89 mg/dL (70-99) Laboratory Tests Test 07/18/18 17:03 07/18/18 20:36 07/19/18 07:24 Glucose (Fingerstick) 293 mg/dL (70-99) 163 mg/dL (70-99) 89 mg/dL (70-99) Medications Active Scripts Medications Dose Route/Sig Max Daily Dose Days Date Category Dose Instructions Tramadol Hcl 50 Mg Tablet 50 Mg PO PRN Q6HRS PRN 6 07/12/18 Rx Ativan (Lorazepam) 1 Mg Tablet 1 Mg PO PRN BID PRN 6 07/12/18 Rx Xarelto (Rivaroxaban) 20 Mg Tablet 20 Mg PO DAILY 30 07/12/18 Rx START on 07/20/2018 FENTANYL 25mcg/hr (Fentanyl) 1 Each Patch.td72 1 Patch TD Q3DAYS 30 07/12/18 Rx Xarelto (Rivaroxaban) 15 Mg Tablet 15 Mg PO BIDWMEALS 7 07/12/18 Rx On Day 8 transition to 20mg Xarelto Doxycycline Hyclate 100 Mg Tablet 100 Mg PO BID 07/12/18 Rx Prednisone (Prednisone) 10 Mg Tablet 10 Mg PO UD 5/14/19 Rx Take 3 tablets by mouth twice a day for 3 days, then take 2 tablets by mouth twice a day for 3 days, then take 1 tablet by mouth twice a day for 3 days, then take 1 tablet by mouth daily x 3 days, then stop. Furosemide 40 Mg Tablet 1 Tab PO DAILY 06/20/18 Reported Guaifenesin 100 Mg/5 Ml Liquid 200 Mg PO PRN Q4HRS PRN 30 05/30/18 Rx Tylenol (Acetaminophen) 325 Mg Tablet 650 Mg PO PRN Q4HRS PRN 10 05/30/18 Rx Ventolin Hfa Inhaler (Albuterol Sulfate) 18 Gm Hfa.aer.ad 2 Puff INH Q4HRS 05/10/18 Rx Vitamin D3 (Cholecalciferol (Vitamin D3)) 5,000 Unit Tablet 5,000 Unit PO DAILY 03/15/18 Reported Reglan (Metoclopramide Hcl) 10 Mg Tablet 0.5 Tab PO QID 30 02/14/18 Rx Potassium Chloride 20 Meq Tablet.er 20 Meq PO DAILY 01/13/18 Reported Protonix (Pantoprazole Sodium) 20 Mg Tablet.dr 1 Tab PO DAILY 11/18/17 Reported Flonase Allergy Relief (Fluticasone Propionate) 9.9 Ml [place].susp 2 Sprays NS DAILY 11/18/17 Reported Atorvastatin Calcium 10 Mg Tablet 10 Mg PO HS 08/21/17 Reported Albuterol Sulfate Neb Soln (Albuterol Sulfate) 2.5 Mg/3 Ml Vial.neb 1 Vial NEB PRN Q4HRS 07/10/17 Rx Symbicort 160-4.5 Mcg Inhaler (Budesonide/Formoterol Fumarate) 10.2 Gm Hfa.aer.ad 2 Puff IH BID 09/21/15 Reported Impression . IMPRESSION: 1. Jihpv-ba-kydxjrd hypoxemic respiratory failure. REQUIRING BIPAP HERE IN HOSPITAL NON INVASIVE VENTILATOR 2. Acute exacerbation of chronic obstructive pulmonary disease. 3. Chronic back pain with evidence of compression fracture. 4. Severe bullous emphysema. 5. Chronic right-sided heart failure. 6. A/C Cor pulmonale Plan . PT IS BENEFITING FROM MECHANICAL VENTILATOR Will set up at home to avoid readmission and hypercapnia This will also help manage the Acute/ Chronic Cor pulmonale SCOTT COOK MD Jul 19, 2018 11:08
--- NOTE | 2018-07-19 13:05 | SNU/HH DC ---
DISCHARGE WITH HOME HEALTH DISCHARGE INFORMATION: Discharge Date: Jul 19, 2018 Final Diagnosis: COPD, end stage Condition on Discharge: Stable CODE STATUS: Code Status: Full HOME HEALTH: Face to Face: I certify this patient is under my care and that I, or a nurse practitioner or physician's investigative assistant working with me, had a face to face encounter that meets the physician face to face encounter requirements with this patient on []. RN For Eval/Treatment: Yes Physical Therapy For: Evalulation/Treatment Occupational Therapy For: Evaluation/Treatment Home Health Aide For: Self-care SANITATION SUPERVISOR For: Community Resources Pt Meets Homebound Status: Poor coordination w/ amb., Unsteady balance w/ amb, POST DISCHARGE ORDERS: Activity Instructions for Disc: Activity as tolerated, Bedrest today DIET AFTER DISCHARGE: Cardiac Wound/Incision Care: No wound care needed CHECKS AFTER DISCHARGE: Checks after discharge: Check blood sugar, ac/hs TREATMENT/EQUIPMENT ORDERS: Adaptive Equipment Issued: None Discharge Respiratory Equipmen: Oxygen CERTIFICATION STATEMENT: Certification Statement: Certification Statement: Based on the above finding, I certify that this patient is confined to the home and needs intermittent [place] [facility] care, physical therapy and/or speech therapy, or continues to need occupational therapy.~ This patient is under my care, and I have initiated the establishment of the plan of care.~ This patient will be followed by myself or a community physician who will periodically review the plan of care. Home Meds Active Scripts Tramadol Hcl (TRAMADOL HCL) 50 Mg Tablet, 50 MG PO PRN Q6HRS PRN for PAIN for 6 Days, #24 TAB Prov:KIRSTIE TREVINO MD 07/12/18 Lorazepam (ATIVAN) 1 Mg Tablet, 1 MG PO PRN BID PRN for ANXIETY / AGITATION for 6 Days, #12 TAB Prov:KIRSTIE TREVINO MD 07/12/18 Rivaroxaban (XARELTO) 20 Mg Tablet, 20 MG PO DAILY for PE for 30 Days, #30 TAB START on 07/20/2018 Prov:KIRSTIE TREVINO MD 07/12/18 Fentanyl (FENTANYL 25mcg/hr) 1 Each Patch.td72, 1 PATCH TD Q3DAYS for T9 compression fx for 30 Days, #10 PATCH Prov:KIRSTIE TREVINO MD 07/12/18 Rivaroxaban (XARELTO) 15 Mg Tablet, 15 MG PO BIDWMEALS for PE for 7 Days, #14 TAB On Day 8 transition to 20mg Xarelto Prov:KIRSTIE TREVINO MD 07/12/18 Doxycycline Hyclate (DOXYCYCLINE HYCLATE) 100 Mg Tablet, 100 MG PO BID for Bacteremia for 5 Days, #10 TAB Prov:KIRSTIE TREVINO MD 07/12/18 Prednisone (PREDNISONE ) 10 Mg Tablet, 10 MG PO UD for PREDNISONE TAPER, #39 TAB 0 Refills Take 3 tablets by mouth twice a day for 3 days, then take 2 tablets by mouth twice a day for 3 days, then take 1 tablet by mouth twice a day for 3 days, then take 1 tablet by mouth daily x 3 days, then stop. Prov:PATRIA SHIELDS MD 06/25/18 Guaifenesin (GUAIFENESIN) 100 Mg/5 Ml Liquid, 200 MG PO PRN Q4HRS PRN for COUGH for 30 Days, #120 LIQUID Prov:TOMAS BAIG MD 05/30/18 Acetaminophen (TYLENOL) 325 Mg Tablet, 650 MG PO PRN Q4HRS PRN for TEMP OVER 100.4F OR MILD PAIN for 10 Days, #30 TAB Prov:TOMAS BAIG MD 05/30/18 Albuterol Sulfate (VENTOLIN HFA INHALER) 18 Gm Hfa.aer.ad, 2 PUFF INH Q4HRS for FOR ASTHMA, #1 INHALER 0 Refills Prov:SD JON APRN 05/10/18 Metoclopramide Hcl (REGLAN) 10 Mg Tablet, 0.5 TAB PO QID for gerd for 30 Days, #60 TAB Prov:TOMAS BAIG MD 02/14/18 Albuterol Sulfate (ALBUTEROL SULFATE NEB SOLN) 2.5 Mg/3 Ml Vial.neb, 1 VIAL NEB PRN Q4HRS, #50 VIAL Prov:TEVIN GOODWIN MD 07/10/17 Reported Medications Furosemide (FUROSEMIDE) 40 Mg Tablet, 1 TAB PO DAILY for water, #30 TAB 5 Refills 06/20/18 Cholecalciferol (Vitamin D3) (VITAMIN D3) 5,000 Unit Tablet, 5000 UNIT PO DAILY for supplement, TAB 03/15/18 Potassium Chloride (POTASSIUM CHLORIDE) 20 Meq Tablet.er, 20 MEQ PO DAILY for supplement, TAB.SR 01/13/18 Pantoprazole Sodium (PROTONIX) 20 Mg Tablet.dr, 1 TAB PO DAILY, #30 TAB 11/18/17 Fluticasone Propionate (Flonase Allergy Relief) 9.9 Ml [place].susp, 2 SPRAYS NS DAILY, BOTTLE 11/18/17 Atorvastatin Calcium (ATORVASTATIN CALCIUM) 10 Mg Tablet, 10 MG PO HS for FOR CHOLESTEROL, #30 TAB 0 Refills 08/21/17 Budesonide/Formoterol Fumarate (SYMBICORT 160-4.5 MCG INHALER) 10.2 Gm Hfa.aer.ad, 2 PUFF IH BID, #10.6 GM 3 Refills 09/21/15 Discontinued Scripts Amoxicillin/Potassium Clav (AUGMENTIN 875-125 TABLET) 1 Each Tablet, 1 TAB PO BID for bronchitis, #12 TAB Prov:PATRIA SHIELDS MD 06/25/18 RAI DURANT MD Jul 19, 2018 13:05
--- NOTE | 2018-07-19 14:19 | PDOC ---
Provider Note Provider Note Pt did not DC yesterday-some social issues Arranging for BiPAP at home [facility] there is back here Not ready for hospice I have Rx'd medications may be last week when he was here for the same We'll change Solu-Medrol to prednisone oral RAI DURANT MD Jul 19, 2018 14:19
[2018-07-19 15:05] VITALS: BP 133/80
--- NOTE | 2018-07-19 16:18 | NUR ---
SW following pt. Insurance denying home ventilator due to ABG results. Discussed with Pulmonary and pt to dc home. [facility] reported they cant take pt due to not having a bipap machine/RT staff. Pt had declined to go to another facility and HH earlier this morning. Pt discharging home with self care. Discussed with RN.
--- NOTE | 2018-07-19 19:41 | NUR ---
Patient discharged to home. Discharge instructions, medications, and follow up appointments discussed with patient. Patient verbalized understanding. Discharge papers and prescription given to patient. PICC discontinued. Pressure dressing applied. Patients daughter here with patient to bring him home.
[2018-07-20] MEDS ORDERED: predniSONE 20 MG TABLET PO SCH (09:00)
== END 2018-07-19 20:00 | disposition home or self-care (01) | DRG 871 ==
LOC: ER 15:14 → 6 SOUTH 17:14
PROVIDERS: ADMIT Internal Medicine; ATTEND Internal Medicine
PROC: 5A09357 Assistance with Respiratory Ventilation, Less than 24 Consecutive Hours, Continuous Positive Airway Pressure (ICD-10-PCS; principal; 2018-07-15)
PROC: 02HV33Z Insertion of Infusion Device into Superior Vena Cava, Percutaneous Approach (ICD-10-PCS; 2018-07-15)
DX: A41.9 Sepsis, unspecified organism (principal); J96.21 Acute and chronic respiratory failure with hypoxia; I13.0 Hypertensive heart and chronic kidney disease with heart failure and stage 1 through stage 4 chronic kidney disease, or unspecified chronic kidney disease; I50.32 Chronic diastolic (congestive) heart failure; J44.1 Chronic obstructive pulmonary disease with (acute) exacerbation; N18.9 Chronic kidney disease, unspecified; E11.22 Type 2 diabetes mellitus with diabetic chronic kidney disease; E78.00 Pure hypercholesterolemia, unspecified; E78.5 Hyperlipidemia, unspecified; G47.33 Obstructive sleep apnea (adult) (pediatric); G89.29 Other chronic pain; I25.10 Atherosclerotic heart disease of native coronary artery without angina pectoris; F41.9 Anxiety disorder, unspecified; F32.9 Major depressive disorder, single episode, unspecified; I27.81 Cor pulmonale (chronic); I50.82 Biventricular heart failure; K21.9 Gastro-esophageal reflux disease without esophagitis; Z79.01 Long term (current) use of anticoagulants; Z82.49 Family history of ischemic heart disease and other diseases of the circulatory system; Z86.711 Personal history of pulmonary embolism; Z87.891 Personal history of nicotine dependence; Z99.81 Dependence on supplemental oxygen; Z88.8 Allergy status to other drugs, medicaments and biological substances
CPT/HCPCS: 36415; 36569; 71045; 80053; 81001; 82962; 83880; 84484; 85007; 85025; 85610; 85730; 87641; 93005; 94640; 94660; 94760; 96374; J0456; J1815; J2270; J2930; J7040; J7613; J7620; J8597; 99285-25

== ENCOUNTER 2018-07-26 02:30 | Inpatient (IN) | payer MEDICARE, MEDICAID ==
[~2018-07-26] VITALS: Ht 180.3 cm; Wt 70.8 kg
[2018-07-26] MEDS ORDERED: DEXAMETHASONE 4 MG TABLET PO ONE (02:45)
[2018-07-26 03:04] LABS: PROTHROMBIN TIME PATIENT 14.8 SEC (11.7-14.0)
[2018-07-26 03:06] LABS: CALCIUM 9.1 mg/dL (8.5-10.1); GFR 92.5; POTASSIUM 4.8 mmol/L (3.5-5.1)
[2018-07-26 03:12] LABS: ALBUMIN 3.5 g/dL (3.4-5.0); ALBUMIN/GLOBULIN RATIO 1.2 (1.0-1.7); TOTAL BILIRUBIN 0.5 mg/dL (0.2-1.0); TOTAL PROTEIN 6.5 g/dL (6.4-8.2)
[2018-07-26] MEDS ORDERED: IPRATRPIUM/ALBUTEROL 0.5/2.5MG 3 ML NEBU. NEB ONE (04:00)
[2018-07-26 04:06] LABS: BASO % 0 % (0-3); EOS % 0 % (0-3); HEMATOCRIT 28.9 % (39.0-53.0); HEMOGLOBIN 9.6 g/dL (13.0-17.5); LYMPH # 0.2 x10^3/uL (1.0-4.8); LYMPH % 2 % (24-48); MEAN CORPUSCULAR HEMOGLOBIN 29 pg (25-35); MEAN CORPUSCULAR HGB CONC 33 g/dL (31-37); MEAN CORPUSCULAR VOLUME 85 fL (79-100); MONO # 0.5 x10^3/uL (0.0-1.1); MONO % 6 % (0-9); NEUT # 7.3 x10^3uL (1.8-7.7); NEUT % 92 % (31-73); PLATELET COUNT 227 x10^3/uL (140-400); RED BLOOD COUNT 3.39 x10^6/uL (4.30-5.70); RED CELL DISTRIBUTION WIDTH 16.2 % (11.5-14.5); WHITE BLOOD COUNT 7.9 x10^3/uL (4.0-11.0)
[2018-07-26 04:27] LABS: % BANDS 1 % (0-9); % LYMPHS 3 % (24-48); % MONOS 5 % (0-10); % SEGS 91 % (35-66); ANISOCYTOSIS SLIGHT; HYPOCHROMIA SLIGHT; PLT ESTIMATE ADEQUATE (ADEQUATE); POLYCHROMASIA SLIGHT
[2018-07-26 04:28] LABS: HELMET CELLS OCC; OVALOCYTES FEW; SPHEROCYTES OCC
--- NOTE | 2018-07-26 04:45 | PHYS DOC ---
Past Medical History Past Medical History: Bronchitis, CHF, COPD, High Cholesterol, Heart Disease, Hypertension, Other Additional Past Medical Histor: EMPHYSEMA-on 3 L NC, "prediabetes", mdd,PE Past Surgical History: Other Additional Past Surgical Histo: HERNIA REPAIR Smoking: Quit Greater Than 1 Year Alcohol Use: None Drug Use: None Adult General Chief Complaint Chief Complaint: SHORTNESS OF BREATH HPI HPI 58-year-old male with past medical history of COPD presents with report of sudden dyspnea and wheezing upon waking tonight. Patient does wear 3 L of supplemental O2 via nasal cannula. Patient denies known sick contacts. Denies leg swelling or calf tenderness. Denies fever or chills. Past reports giving DuoNeb's 2 prior to arrival without significant improvement of symptoms. Patient reports recent hospitalization for chronic back pain. Denies trauma. Review of Systems Review of Systems Constitutional: Denies fever or chills Eyes: Denies redness or eye pain HENT: Denies nasal congestion or sore throat Respiratory: Reports cough, wheezing, and shortness of breath Cardiovascular: Denies chest pain or palpitations GI: Denies abdominal pain, nausea, or vomiting : Denies dysuria or hematuria Musculoskeletal: Reports back pain Integument: Denies rash or skin lesions Neurologic: Denies headache, focal weakness or sensory changes Complete systems were reviewed and found to be within normal limits, except as documented in this note. Current Medications Current Medications Current Medications Medications (Trade) Dose Ordered Sig/Candy Start Time Stop Time Status Last Admin Dose Admin Albuterol/ Ipratropium (Duoneb) 3 ml 1X ONCE 07/26/18 04:00 07/26/18 04:01 DC 07/26/18 04:09 3 ML Dexamethasone (Decadron) 10 mg 1X ONCE 07/26/18 02:45 07/26/18 02:46 DC 07/26/18 02:56 10 MG Lorazepam (Ativan Inj) 1 mg 1X ONCE 07/26/18 02:45 07/26/18 02:46 DC 07/26/18 02:55 1 MG Ondansetron HCl (Zofran) 4 mg PRN Q8HRS PRN 07/26/18 05:00 07/27/18 04:59 Orphenadrine Citrate (Norflex) 60 mg 1X ONCE 07/26/18 05:00 07/26/18 05:01 DC 07/26/18 05:28 60 MG Allergies Allergies Allergies Coded Allergies Type Severity Reaction Last Updated Verified acetaminophen Allergy Intermediate TAKES NORCO AT HOME 01/29/18 Yes Physical Exam Physical Exam Constitutional: Well developed, well nourished, mild distress, non-toxic appearance, anxious HENT: Normocephalic, atraumatic, oropharynx moist Eyes: Conjunctiva normal, no discharge Neck: Normal range of motion, no tenderness, supple, no meningeal signs Cardiovascular: Heart rate normal, regular rhythm Lungs & Thorax: Bilateral breath sounds clear to auscultation, no wheezing Abdomen: Soft, no tenderness Skin: Warm, dry, no erythema, no rash Back: No midline tenderness, no CVA tenderness, right upper-mid lumbar pain to paraspinal area Extremities: No tenderness, ROM intact, no edema Neurologic: Alert and oriented X 3, no focal deficits noted Psychologic: Affect normal, judgement normal Current Patient Data Vital Signs Vital Signs Date Time Temp Pulse Resp B/P (MAP) Pulse Ox O2 Delivery O2 Flow Rate FiO2 07/26/18 04:12 99 Nasal Cannula 3.0 07/26/18 02:30 99.1 115 24 117/83 (94) 99.1 Lab Values Laboratory Tests Test 07/26/18 02:45 07/26/18 04:00 Prothrombin Time 14.8 SEC (11.7-14.0) H Prothrombin Time INR 1.2 (0.8-1.1) H PTT 28 SEC (24-38) Sodium Level 138 mmol/L (136-145) Potassium Level 4.8 mmol/L (3.5-5.1) Chloride Level 97 mmol/L (98-107) L Carbon Dioxide Level 29 mmol/L (21-32) Anion Gap 12 (6-14) Blood Urea Nitrogen 18 mg/dL (8-26) Creatinine 1.0 mg/dL (0.7-1.3) Estimated GFR (Cockcroft-Gault) 92.5 BUN/Creatinine Ratio 18 (6-20) Glucose Level 160 mg/dL (70-99) H Calcium Level 9.1 mg/dL (8.5-10.1) Magnesium Level 2.0 mg/dL (1.8-2.4) Total Bilirubin 0.5 mg/dL (0.2-1.0) Aspartate Amino Transferase (AST) 33 U/L (15-37) Alanine Aminotransferase (ALT) 35 U/L (16-63) Alkaline Phosphatase 106 U/L (46-116) Creatine Kinase 248 U/L (39-308) Creatine Kinase MB (Mass) 4.4 ng/mL (0.0-3.6) H Creatine Kinase MB Relative Index 1.8 % (0-4) Troponin I Quantitative 0.017 ng/mL (0.000-0.055) ID-Vko-F-Type Natriuretic Peptide 58 pg/mL (0-124) Total Protein 6.5 g/dL (6.4-8.2) Albumin 3.5 g/dL (3.4-5.0) Albumin/Globulin Ratio 1.2 (1.0-1.7) Lipase 178 U/L (73-393) White Blood Count 7.9 x10^3/uL (4.0-11.0) Red Blood Count 3.39 x10^6/uL (4.30-5.70) L Hemoglobin 9.6 g/dL (13.0-17.5) L Hematocrit 28.9 % (39.0-53.0) L Mean Corpuscular Volume 85 fL (79-100) Mean Corpuscular Hemoglobin 29 pg (25-35) Mean Corpuscular Hemoglobin Concent 33 g/dL (31-37) Red Cell Distribution Width 16.2 % (11.5-14.5) H Platelet Count 227 x10^3/uL (140-400) Neutrophils (%) (Auto) 92 % (31-73) H Lymphocytes (%) (Auto) 2 % (24-48) L Monocytes (%) (Auto) 6 % (0-9) Eosinophils (%) (Auto) 0 % (0-3) Basophils (%) (Auto) 0 % (0-3) Neutrophils # (Auto) 7.3 x10^3uL (1.8-7.7) Lymphocytes # (Auto) 0.2 x10^3/uL (1.0-4.8) L Monocytes # (Auto) 0.5 x10^3/uL (0.0-1.1) Eosinophils # (Auto) 0.0 x10^3/uL (0.0-0.7) Basophils # (Auto) 0.0 x10^3/uL (0.0-0.2) Segmented Neutrophils % 91 % (35-66) H Band Neutrophils % 1 % (0-9) Lymphocytes % 3 % (24-48) L Monocytes % 5 % (0-10) Platelet Estimate Adequate (ADEQUATE) Polychromasia Slight Hypochromasia Slight Anisocytosis Slight Spherocytes Occ Ovalocytes Few Helmet Cells Occ Lactic Acid Level 1.6 mmol/L (0.4-2.0) Laboratory Tests 07/26/18 04:00 Laboratory Tests 07/26/18 02:45 EKG EKG @0239 Sinus tachycardia at 106bpm, NO ST elevation Radiology/Procedures Radiology/Procedures CXR 2 view (preliminary interpretation by ED physician): No acute process. Chronic interstitial lung disease. Course & Med Decision Making Course & Med Decision Making Pertinent Labs and Imaging studies reviewed. (See chart for details) Patient presents with history of present illness and physical exam consistent for acute exacerbation of COPD. EMS had provided DuoNeb's 2 with limited improvement. Additional DuoNeb provided in ED again with limited improvement. Empiric steroid also provided. Labs obtained and posted to chart. Troponin within normal limits. Lactic acid and white count within normal limits. EKG stable. Chest x-ray without acute process. Patient also reporting some chronic back pain. Symptomatic treatment provided. Given the lack of improvement of symptoms, patient requiring admission for further evaluation and treatment. Discussed with Dr. Keene (hospitalist) who is in agreement with admission. Discussed findings and plan with patient, who acknowledges understanding and agreement. Dragon Disclaimer Dragon Disclaimer This electronic medical record was generated, in whole or in part, using a voice recognition dictation system. Departure Departure Impression: Primary Impression: COPD with exacerbation Additional Impression: Chronic back pain Disposition: ADMITTED INPATIENT Admitting Physician: ALINE ([place]) Condition: GUARDED Referrals: UNKNOWN PCP NAME (PCP) Problem Qualifiers Additional Impression: Chronic back pain Back pain location: low back pain Back pain laterality: right Sciatica presence: without sciatica Qualified Codes: M54.5 - Low back pain; G89.29 - Other chronic pain BONILLA JONES DO Jul 26, 2018 04:45
[2018-07-26] MEDS ORDERED: ORPHENADRINE CITRATE 60 MG/2 ML VIAL. IV ONE (05:00)
[2018-07-26] MEDS ORDERED: ONDANSETRON PF 4 MG/2 ML VIAL. IV PRN (05:00)
[2018-07-26 05:45] VITALS: BP 128/93
--- NOTE | 2018-07-26 05:59 | RAD ---
Chest PA and lateral: Reason for examination: Short of breath. Comparison is made to previous study dated 07/14/2018. Lung lira are hyperaerated with bullous changes in the upper lobes bilaterally. There is some linear density consistent with probable atelectasis at the left lung base and there are some chronic appearing interstitial type changes at the bases bilaterally. No gross pleural effusions are seen. No acute bony abnormalities are evident. IMPRESSION: Bullous emphysema with some linear atelectasis at the left lung base and some chronic interstitial changes at the lung bases. No acute process evident. The heart size is normal. Mediastinum is unremarkable. Lung lira are clear. No acute bony abnormalities are seen. Impression: No acute cardiopulmonary disease. Electronically signed by: Renée Mcknight MD (07/26/2018 5:56 AM) [facility]
--- NOTE | 2018-07-26 06:23 | EKG ---
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
--- NOTE | 2018-07-26 06:42 | NUR ---
The patient, KAYLA JONES, 58 y/o, M admitted by TAMMY MARKS III, DO, was given written information regarding hospital policies, unit procedures and contact persons. Valuables were checked and left with patient. Patient is resting call light within reach.
[2018-07-26 07:00] VITALS: BP 135/94
[2018-07-26] MEDS ORDERED: guaiFENesin ORAL 200 MG/10 ML LIQUID. PO PRN (09:00)
[2018-07-26] MEDS ORDERED: LORazepam 1 MG TABLET PO PRN (09:00)
[2018-07-26] MEDS: traMADol 50 MG TABLET PO PRN ×3 (09:54→23:39)
[2018-07-26] MEDS: METOCLOPRAMIDE 10 MG TABLET. PO SCH ×4 (09:54→21:02)
[2018-07-26] MEDS: CHOLECALCIFEROL (VITAMIN D3) 5,000 UNIT CAPSULE PO SCH (09:54)
[2018-07-26] MEDS: POTASSIUM CHLORIDE 20 MEQ TABLET.ER. PO SCH (09:54)
[2018-07-26] MEDS: FUROSEMIDE 40 MG TABLET. PO SCH (09:55)
[2018-07-26] MEDS: PANTOPRAZOLE 40 MG TABLET.DR. PO SCH (09:55)
[2018-07-26] MEDS: RIVAROXABAN 10 MG TABLET. PO SCH (10:23)
--- NOTE | 2018-07-26 10:31 | PDOC1 ---
History and Physical Date of Admission: Date of Admission DATE: 07/26/18 TIME: 10:27 Chief Complaint: Problems: (1) Emphysema of lung (2) Hypokalemia (3) Fever (4) Essential hypertension (5) Acute renal failure (6) Hypoxemia (7) Back pain (8) Dysphagia (9) Emphysema lung (10) Acute bronchitis (11) Hypoxia (12) Community acquired pneumonia (13) Healthcare-associated pneumonia (14) Elevated troponin (15) Left lower lobe pneumonia (16) HCAP (healthcare-associated pneumonia) (17) Guzqx-oi-fpoxtxe kidney injury (18) Left sided chest pain (19) Pulmonary embolism Chief Complain: Shortness of breath History of Present Illness: HPI: This is a middle-aged -[place] male who is discharged and readmitted multiple times this month We've even had him go to the assisted unit at [facility] but that doesn't seem to help Basically he needs a custodial he has end-stage COPD Once again presents with shortness of breath He did quit smoking a couple years ago but may have been to light Rates his symptoms at 10 out 10 Has associated pain Increase his home meds with that and work Describes as symptoms as agonizing He clearly has respiratory failure I discussed case with ER physician were going to admit the patient consult pulmonary give him IV steroids breathing treatments and oxygen and antibiotics Past Medical/Surgical History: PMH/PSH: Past Medical History: Bronchitis, CHF, COPD, High Cholesterol, Heart Disease, Hypertension, Other Additional Past Medical Histor: EMPHYSEMA-on 3 L NC, "prediabetes", mdd,PE Past Surgical History: Other Additional Past Surgical Histo: HERNIA REPAIR Smoking: Quit Greater Than 1 Year Alcohol Use: None Drug Use: None Allergies: Allergies: Coded Allergies: acetaminophen (Verified Allergy, Intermediate, TAKES NORCO AT HOME, 01/29/18) Family History: Family History: Hypertension Social History: Social Hisoty: He quit smoking a couple years ago no drinker drugs Current Medications: Current Medications Current Medications Dexamethasone (Decadron) 10 mg 1X ONCE PO Last administered on 07/26/18at 02:56; Start 07/26/18 at 02:45; Stop 07/26/18 at 02:46; Status DC Lorazepam (Ativan Inj) 1 mg 1X ONCE IV Last administered on 07/26/18at 02:55; Start 07/26/18 at 02:45; Stop 07/26/18 at 02:46; Status DC Albuterol/ Ipratropium (Duoneb) 3 ml 1X ONCE NEB Last administered on 07/26/18at 04:09; Start 07/26/18 at 04:00; Stop 07/26/18 at 04:01; Status DC Orphenadrine Citrate (Norflex) 60 mg 1X ONCE IV Last administered on 07/26/18at 05:28; Start 07/26/18 at 05:00; Stop 07/26/18 at 05:01; Status DC Ondansetron HCl (Zofran) 4 mg PRN Q8HRS PRN IV NAUSEA/VOMITING; Start 07/26/18 at 05:00; Stop 07/27/18 at 04:59 Albuterol Sulfate (Ventolin Neb Soln) 2.5 mg PRN Q4HRS PRN NEB SHORTNESS OF BREATH; Start 07/26/18 at 09:00 Atorvastatin Calcium (Lipitor) 10 mg HS PO ; Start 07/26/18 at 21:00 Furosemide (Lasix) 40 mg DAILY PO Last administered on 07/26/18at 09:55; Start 07/26/18 at 09:00 Guaifenesin (Robitussin) 200 mg PRN Q4HRS PRN PO COUGH; Start 07/26/18 at 09:00 Lorazepam (Ativan) 1 mg PRN BID PRN PO ANXIETY / AGITATION; Start 07/26/18 at 09:00 Metoclopramide HCl (Reglan) 5 mg QID PO Last administered on 07/26/18at 09:54; Start 07/26/18 at 09:00 Albuterol Sulfate (Ventolin Neb Soln) 2.5 mg Q4HRS NEB ; Start 07/26/18 at 12:00 Budesonide (Pulmicort) 0.5 mg RTBID NEB ; Start 07/26/18 at 09:30 Vitamin D (Vitamin D3) 5,000 unit DAILY PO Last administered on 07/26/18at 09:54; Start 07/26/18 at 09:30 Pantoprazole Sodium (Protonix) 40 mg DAILYAC PO Last administered on 07/26/18at 09:55; Start 07/26/18 at 09:30 Potassium Chloride (Klor-Con) 20 meq DAILYWBKFT PO Last administered on 07/26/18at 09:54; Start 07/26/18 at 09:30 Rivaroxaban (Xarelto) 20 mg DAILYWSUP PO ; Start 07/26/18 at 17:00; Stop 07/26/18 at 17:00; Status DC Tramadol HCl (Ultram) 50 mg PRN Q6HRS PRN PO PAIN Last administered on 07/26/18at 09:54; Start 07/26/18 at 09:15 Rivaroxaban (Xarelto) 20 mg DAILY PO Last administered on 07/26/18at 10:23; Start 07/26/18 at 11:00 Active Scripts Active Tramadol Hcl 50 Mg Tablet 50 Mg PO PRN Q6HRS PRN 6 Days Ativan (Lorazepam) 1 Mg Tablet 1 Mg PO PRN BID PRN 6 Days Xarelto (Rivaroxaban) 20 Mg Tablet 20 Mg PO DAILY 30 Days START on 07/20/2018 Guaifenesin 100 Mg/5 Ml Liquid 200 Mg PO PRN Q4HRS PRN 30 Days Tylenol (Acetaminophen) 325 Mg Tablet 650 Mg PO PRN Q4HRS PRN 10 Days Ventolin Hfa Inhaler (Albuterol Sulfate) 18 Gm Hfa.aer.ad 2 Puff INH Q4HRS Reglan (Metoclopramide Hcl) 10 Mg Tablet 0.5 Tab PO QID 30 Days Albuterol Sulfate Neb Soln (Albuterol Sulfate) 2.5 Mg/3 Ml Vial.neb 1 Vial NEB PRN Q4HRS Reported Furosemide 40 Mg Tablet 1 Tab PO DAILY Vitamin D3 (Cholecalciferol (Vitamin D3)) 5,000 Unit Tablet 5,000 Unit PO DAILY Potassium Chloride 20 Meq Tablet.er 20 Meq PO DAILY Protonix (Pantoprazole Sodium) 20 Mg Tablet.dr 1 Tab PO DAILY Atorvastatin Calcium 10 Mg Tablet 10 Mg PO HS Symbicort 160-4.5 Mcg Inhaler (Budesonide/Formoterol Fumarate) 10.2 Gm Hfa.aer.ad 2 Puff IH BID ROS: Review of Systems Review of System REVIEW OF SYSTEMS: GENERAL: Complains of weakness SKIN: No bruising, hair changes or rashes. EYES: No blurred, double or loss of vision. NOSE AND THROAT: No history of nosebleeds, hoarseness or sore throat. HEART: No history of palpitations, chest pain or shortness of breath on exertion. LUNGS: Complains of shortness of breath and cough GASTROINTESTINAL: Denies changes in appetite, nausea, vomiting, diarrhea or constipation. GENITOURINARY: No history of frequency, urgency, hesitancy or nocturia. NEUROLOGIC: Denies history of numbness, tingling, tremor or weakness. PSYCHIATRIC: No history of panic, anxiety or depression. ENDOCRINE: No history of heat or cold intolerance, polyuria or polydipsia. EXTREMITIES: Denies muscle weakness, joint pain, pain on walking or stiffness. Physical Exam: Vital Signs: Vital Signs Date Time Temp Pulse Resp B/P (MAP) Pulse Ox O2 Delivery O2 Flow Rate FiO2 07/26/18 09:54 Nasal Cannula 2.0 07/26/18 07:00 97.7 75 16 135/94 (108) 95 97.7 Physcial Exam: GEN.: Very weak seems depressed HEENT: Head is normocephalic, atraumatic NECK: Supple, no JVD LUNGS: Decreased breath sounds some slight crackles HEART: Distant S1-S2 ABDOMEN: Soft, nontender. Positive bowel sounds no organomegaly EXTREMITIES: Without any cyanosis, clubbing, or edema. Pedal pulses intact NEUROLOGIC: Normal speech, normal tone. A&O x 3 PSYCHIATRIC: Normal affect, normal mood. Stable SKIN: No ulcerations or rashes VASCULAR: Good capillary refill Labs: Labs: Laboratory Tests Test 07/26/18 02:45 07/26/18 04:00 Prothrombin Time 14.8 SEC (11.7-14.0) Prothromb Time International Ratio 1.2 (0.8-1.1) Activated Partial Thromboplast Time 28 SEC (24-38) Sodium Level 138 mmol/L (136-145) Potassium Level 4.8 mmol/L (3.5-5.1) Chloride Level 97 mmol/L (98-107) Carbon Dioxide Level 29 mmol/L (21-32) Anion Gap 12 (6-14) Blood Urea Nitrogen 18 mg/dL (8-26) Creatinine 1.0 mg/dL (0.7-1.3) Estimated GFR (Cockcroft-Gault) 92.5 BUN/Creatinine Ratio 18 (6-20) Glucose Level 160 mg/dL (70-99) Calcium Level 9.1 mg/dL (8.5-10.1) Magnesium Level 2.0 mg/dL (1.8-2.4) Total Bilirubin 0.5 mg/dL (0.2-1.0) Aspartate Amino Transf (AST/SGOT) 33 U/L (15-37) Alanine Aminotransferase (ALT/SGPT) 35 U/L (16-63) Alkaline Phosphatase 106 U/L (46-116) Creatine Kinase 248 U/L (39-308) Creatine Kinase MB (Mass) 4.4 ng/mL (0.0-3.6) Creatine Kinase MB Relative Index 1.8 % (0-4) Troponin I Quantitative 0.017 ng/mL (0.000-0.055) ZM-Fyw-O-Type Natriuretic Peptide 58 pg/mL (0-124) Total Protein 6.5 g/dL (6.4-8.2) Albumin 3.5 g/dL (3.4-5.0) Albumin/Globulin Ratio 1.2 (1.0-1.7) Lipase 178 U/L (73-393) White Blood Count 7.9 x10^3/uL (4.0-11.0) Red Blood Count 3.39 x10^6/uL (4.30-5.70) Hemoglobin 9.6 g/dL (13.0-17.5) Hematocrit 28.9 % (39.0-53.0) Mean Corpuscular Volume 85 fL (79-100) Mean Corpuscular Hemoglobin 29 pg (25-35) Mean Corpuscular Hemoglobin Concent 33 g/dL (31-37) Red Cell Distribution Width 16.2 % (11.5-14.5) Platelet Count 227 x10^3/uL (140-400) Neutrophils (%) (Auto) 92 % (31-73) Lymphocytes (%) (Auto) 2 % (24-48) Monocytes (%) (Auto) 6 % (0-9) Eosinophils (%) (Auto) 0 % (0-3) Basophils (%) (Auto) 0 % (0-3) Neutrophils # (Auto) 7.3 x10^3uL (1.8-7.7) Lymphocytes # (Auto) 0.2 x10^3/uL (1.0-4.8) Monocytes # (Auto) 0.5 x10^3/uL (0.0-1.1) Eosinophils # (Auto) 0.0 x10^3/uL (0.0-0.7) Basophils # (Auto) 0.0 x10^3/uL (0.0-0.2) Segmented Neutrophils % 91 % (35-66) Band Neutrophils % 1 % (0-9) Lymphocytes % 3 % (24-48) Monocytes % 5 % (0-10) Platelet Estimate Adequate (ADEQUATE) Polychromasia Slight Hypochromasia Slight Anisocytosis Slight Spherocytes Occ Ovalocytes Few Helmet Cells Occ Lactic Acid Level 1.6 mmol/L (0.4-2.0) Laboratory Tests Test 07/26/18 02:45 07/26/18 04:00 Prothrombin Time 14.8 SEC (11.7-14.0) Prothromb Time International Ratio 1.2 (0.8-1.1) Activated Partial Thromboplast Time 28 SEC (24-38) Sodium Level 138 mmol/L (136-145) Potassium Level 4.8 mmol/L (3.5-5.1) Chloride Level 97 mmol/L (98-107) Carbon Dioxide Level 29 mmol/L (21-32) Anion Gap 12 (6-14) Blood Urea Nitrogen 18 mg/dL (8-26) Creatinine 1.0 mg/dL (0.7-1.3) Estimated GFR (Cockcroft-Gault) 92.5 BUN/Creatinine Ratio 18 (6-20) Glucose Level 160 mg/dL (70-99) Calcium Level 9.1 mg/dL (8.5-10.1) Magnesium Level 2.0 mg/dL (1.8-2.4) Total Bilirubin 0.5 mg/dL (0.2-1.0) Aspartate Amino Transf (AST/SGOT) 33 U/L (15-37) Alanine Aminotransferase (ALT/SGPT) 35 U/L (16-63) Alkaline Phosphatase 106 U/L (46-116) Creatine Kinase 248 U/L (39-308) Creatine Kinase MB (Mass) 4.4 ng/mL (0.0-3.6) Creatine Kinase MB Relative Index 1.8 % (0-4) Troponin I Quantitative 0.017 ng/mL (0.000-0.055) EP-Iym-Y-Type Natriuretic Peptide 58 pg/mL (0-124) Total Protein 6.5 g/dL (6.4-8.2) Albumin 3.5 g/dL (3.4-5.0) Albumin/Globulin Ratio 1.2 (1.0-1.7) Lipase 178 U/L (73-393) White Blood Count 7.9 x10^3/uL (4.0-11.0) Red Blood Count 3.39 x10^6/uL (4.30-5.70) Hemoglobin 9.6 g/dL (13.0-17.5) Hematocrit 28.9 % (39.0-53.0) Mean Corpuscular Volume 85 fL (79-100) Mean Corpuscular Hemoglobin 29 pg (25-35) Mean Corpuscular Hemoglobin Concent 33 g/dL (31-37) Red Cell Distribution Width 16.2 % (11.5-14.5) Platelet Count 227 x10^3/uL (140-400) Neutrophils (%) (Auto) 92 % (31-73) Lymphocytes (%) (Auto) 2 % (24-48) Monocytes (%) (Auto) 6 % (0-9) Eosinophils (%) (Auto) 0 % (0-3) Basophils (%) (Auto) 0 % (0-3) Neutrophils # (Auto) 7.3 x10^3uL (1.8-7.7) Lymphocytes # (Auto) 0.2 x10^3/uL (1.0-4.8) Monocytes # (Auto) 0.5 x10^3/uL (0.0-1.1) Eosinophils # (Auto) 0.0 x10^3/uL (0.0-0.7) Basophils # (Auto) 0.0 x10^3/uL (0.0-0.2) Segmented Neutrophils % 91 % (35-66) Band Neutrophils % 1 % (0-9) Lymphocytes % 3 % (24-48) Monocytes % 5 % (0-10) Platelet Estimate Adequate (ADEQUATE) Polychromasia Slight Hypochromasia Slight Anisocytosis Slight Spherocytes Occ Ovalocytes Few Helmet Cells Occ Lactic Acid Level 1.6 mmol/L (0.4-2.0) Images: Images History x-ray shows COPD Assessment/Plan Assessment/Plan Respiratory failure secondary to end-stage COPD Plan IV steroids Duo nebs O2 per nasal cannula Consult pulmonary Plus minus antibiotics if pulmonary agrees DVT prophylaxis Full code Cardiac monitoring Prognosis long-term is not good We'll consult palliative care as well long-term goals of care TAMMY MARKS III, DO Jul 26, 2018 10:30
[2018-07-26 11:00] VITALS: BP 128/81
[2018-07-26] MEDS: BUDESONIDE 0.5 MG/2 ML NEBU. NEB SCH ×2 (11:16→18:29)
[2018-07-26] MEDS: ALBUTEROL SULFATE 2.5 MG/3 ML NEBU. NEB SCH ×4 (11:16→23:33)
[2018-07-26 11:30] LABS: BASE EXCESS ABG 0 mmol/L (-3-3); HCO3 ABG 25 mmol/L (21-28); PCO2 ABG 41 mmHg (35-46); PO2 ABG 95 mmHg (65-108); SAT O2 ABG 96 % (92-99)
[2018-07-26 11:33] LABS: FIO2 ABG 32
--- NOTE | 2018-07-26 12:16 | PDOC2 ---
PALLIATIVE CARE Palliative Care Note Palliative Care Consult requested by Dr. Hathaway to address goals of care. Medical Assessment per Medical Record (1) Emphysema of lung (2) Hypokalemia (3) Fever (4) Essential hypertension (5) Acute renal failure (6) Hypoxemia (7) Back pain (8) Dysphagia (9) Emphysema lung (10) Acute bronchitis (11) Hypoxia (12) Community acquired pneumonia (13) Healthcare-associated pneumonia (14) Elevated troponin (15) Left lower lobe pneumonia (16) HCAP (healthcare-associated pneumonia) (17) Odobm-sa-vyxyhvo kidney injury (18) Left sided chest pain (19) Pulmonary embolism Chief Complain: Shortness of breath Code Status; Full Code; Patient known to PC form previous admission. Patient again wants full code and full aggressive care. Patient with 11 admissions since 2018. Will attempt to talk with patient again and include family if possible. LAXMI LOBATO Jul 26, 2018 12:16
--- NOTE | 2018-07-26 13:59 | NUR ---
SW following pt for dc needs. Chart reviewed. Pt is well known to SW and is a frequent admit. Palliative care consulted and SW requested for ABG and results show pt still does not meet criteria for home Mechanical Ventilation. Pt has 02 with Aline and gets case management services through [facility] outpatient case management program. SW will continue to follow pt pending discharge needs.
--- NOTE | 2018-07-26 14:21 | PDOC ---
PULMONARY PROGRESS NOTES Vitals Vital Signs Date Time Temp Pulse Resp B/P (MAP) Pulse Ox O2 Delivery O2 Flow Rate FiO2 07/26/18 11:19 99 Nasal Cannula 3.0 07/26/18 11:00 98.3 66 16 128/81 (97) 98.3 General: Alert, No acute distress Lungs: Crackles, Other Cardiovascular: S1, S2 Abdomen: Soft, Non-tender Extremities: No Edema, Other Labs Laboratory Tests Test 07/26/18 02:45 07/26/18 04:00 07/26/18 11:10 Prothrombin Time 14.8 SEC (11.7-14.0) Prothromb Time International Ratio 1.2 (0.8-1.1) Activated Partial Thromboplast Time 28 SEC (24-38) Sodium Level 138 mmol/L (136-145) Potassium Level 4.8 mmol/L (3.5-5.1) Chloride Level 97 mmol/L (98-107) Carbon Dioxide Level 29 mmol/L (21-32) Anion Gap 12 (6-14) Blood Urea Nitrogen 18 mg/dL (8-26) Creatinine 1.0 mg/dL (0.7-1.3) Estimated GFR (Cockcroft-Gault) 92.5 BUN/Creatinine Ratio 18 (6-20) Glucose Level 160 mg/dL (70-99) Calcium Level 9.1 mg/dL (8.5-10.1) Magnesium Level 2.0 mg/dL (1.8-2.4) Total Bilirubin 0.5 mg/dL (0.2-1.0) Aspartate Amino Transf (AST/SGOT) 33 U/L (15-37) Alanine Aminotransferase (ALT/SGPT) 35 U/L (16-63) Alkaline Phosphatase 106 U/L (46-116) Creatine Kinase 248 U/L (39-308) Creatine Kinase MB (Mass) 4.4 ng/mL (0.0-3.6) Creatine Kinase MB Relative Index 1.8 % (0-4) Troponin I Quantitative 0.017 ng/mL (0.000-0.055) FG-Fmc-J-Type Natriuretic Peptide 58 pg/mL (0-124) Total Protein 6.5 g/dL (6.4-8.2) Albumin 3.5 g/dL (3.4-5.0) Albumin/Globulin Ratio 1.2 (1.0-1.7) Lipase 178 U/L (73-393) White Blood Count 7.9 x10^3/uL (4.0-11.0) Red Blood Count 3.39 x10^6/uL (4.30-5.70) Hemoglobin 9.6 g/dL (13.0-17.5) Hematocrit 28.9 % (39.0-53.0) Mean Corpuscular Volume 85 fL (79-100) Mean Corpuscular Hemoglobin 29 pg (25-35) Mean Corpuscular Hemoglobin Concent 33 g/dL (31-37) Red Cell Distribution Width 16.2 % (11.5-14.5) Platelet Count 227 x10^3/uL (140-400) Neutrophils (%) (Auto) 92 % (31-73) Lymphocytes (%) (Auto) 2 % (24-48) Monocytes (%) (Auto) 6 % (0-9) Eosinophils (%) (Auto) 0 % (0-3) Basophils (%) (Auto) 0 % (0-3) Neutrophils # (Auto) 7.3 x10^3uL (1.8-7.7) Lymphocytes # (Auto) 0.2 x10^3/uL (1.0-4.8) Monocytes # (Auto) 0.5 x10^3/uL (0.0-1.1) Eosinophils # (Auto) 0.0 x10^3/uL (0.0-0.7) Basophils # (Auto) 0.0 x10^3/uL (0.0-0.2) Segmented Neutrophils % 91 % (35-66) Band Neutrophils % 1 % (0-9) Lymphocytes % 3 % (24-48) Monocytes % 5 % (0-10) Platelet Estimate Adequate (ADEQUATE) Polychromasia Slight Hypochromasia Slight Anisocytosis Slight Spherocytes Occ Ovalocytes Few Helmet Cells Occ Lactic Acid Level 1.6 mmol/L (0.4-2.0) O2 Saturation 96 % (92-99) Arterial Blood pH 7.39 (7.35-7.45) Arterial Blood pCO2 at Patient Temp 41 mmHg (35-46) Arterial Blood pO2 at Patient Temp 95 mmHg (65-108) Arterial Blood HCO3 25 mmol/L (21-28) Arterial Blood Base Excess 0 mmol/L (-3-3) FiO2 32 Laboratory Tests Test 07/26/18 02:45 07/26/18 04:00 07/26/18 11:10 Prothrombin Time 14.8 SEC (11.7-14.0) Prothromb Time International Ratio 1.2 (0.8-1.1) Activated Partial Thromboplast Time 28 SEC (24-38) Sodium Level 138 mmol/L (136-145) Potassium Level 4.8 mmol/L (3.5-5.1) Chloride Level 97 mmol/L (98-107) Carbon Dioxide Level 29 mmol/L (21-32) Anion Gap 12 (6-14) Blood Urea Nitrogen 18 mg/dL (8-26) Creatinine 1.0 mg/dL (0.7-1.3) Estimated GFR (Cockcroft-Gault) 92.5 BUN/Creatinine Ratio 18 (6-20) Glucose Level 160 mg/dL (70-99) Calcium Level 9.1 mg/dL (8.5-10.1) Magnesium Level 2.0 mg/dL (1.8-2.4) Total Bilirubin 0.5 mg/dL (0.2-1.0) Aspartate Amino Transf (AST/SGOT) 33 U/L (15-37) Alanine Aminotransferase (ALT/SGPT) 35 U/L (16-63) Alkaline Phosphatase 106 U/L (46-116) Creatine Kinase 248 U/L (39-308) Creatine Kinase MB (Mass) 4.4 ng/mL (0.0-3.6) Creatine Kinase MB Relative Index 1.8 % (0-4) Troponin I Quantitative 0.017 ng/mL (0.000-0.055) ND-Bdo-T-Type Natriuretic Peptide 58 pg/mL (0-124) Total Protein 6.5 g/dL (6.4-8.2) Albumin 3.5 g/dL (3.4-5.0) Albumin/Globulin Ratio 1.2 (1.0-1.7) Lipase 178 U/L (73-393) White Blood Count 7.9 x10^3/uL (4.0-11.0) Red Blood Count 3.39 x10^6/uL (4.30-5.70) Hemoglobin 9.6 g/dL (13.0-17.5) Hematocrit 28.9 % (39.0-53.0) Mean Corpuscular Volume 85 fL (79-100) Mean Corpuscular Hemoglobin 29 pg (25-35) Mean Corpuscular Hemoglobin Concent 33 g/dL (31-37) Red Cell Distribution Width 16.2 % (11.5-14.5) Platelet Count 227 x10^3/uL (140-400) Neutrophils (%) (Auto) 92 % (31-73) Lymphocytes (%) (Auto) 2 % (24-48) Monocytes (%) (Auto) 6 % (0-9) Eosinophils (%) (Auto) 0 % (0-3) Basophils (%) (Auto) 0 % (0-3) Neutrophils # (Auto) 7.3 x10^3uL (1.8-7.7) Lymphocytes # (Auto) 0.2 x10^3/uL (1.0-4.8) Monocytes # (Auto) 0.5 x10^3/uL (0.0-1.1) Eosinophils # (Auto) 0.0 x10^3/uL (0.0-0.7) Basophils # (Auto) 0.0 x10^3/uL (0.0-0.2) Segmented Neutrophils % 91 % (35-66) Band Neutrophils % 1 % (0-9) Lymphocytes % 3 % (24-48) Monocytes % 5 % (0-10) Platelet Estimate Adequate (ADEQUATE) Polychromasia Slight Hypochromasia Slight Anisocytosis Slight Spherocytes Occ Ovalocytes Few Helmet Cells Occ Lactic Acid Level 1.6 mmol/L (0.4-2.0) O2 Saturation 96 % (92-99) Arterial Blood pH 7.39 (7.35-7.45) Arterial Blood pCO2 at Patient Temp 41 mmHg (35-46) Arterial Blood pO2 at Patient Temp 95 mmHg (65-108) Arterial Blood HCO3 25 mmol/L (21-28) Arterial Blood Base Excess 0 mmol/L (-3-3) FiO2 32 Medications Active Scripts Medications Dose Route/Sig Max Daily Dose Days Date Category Dose Instructions Tramadol Hcl 50 Mg Tablet 50 Mg PO PRN Q6HRS PRN 6 07/12/18 Rx Ativan (Lorazepam) 1 Mg Tablet 1 Mg PO PRN BID PRN 6 5/31/19 Rx Xarelto (Rivaroxaban) 20 Mg Tablet 20 Mg PO DAILY 30 07/12/18 Rx START on 07/20/2018 Furosemide 40 Mg Tablet 1 Tab PO DAILY 06/20/18 Reported Guaifenesin 100 Mg/5 Ml Liquid 200 Mg PO PRN Q4HRS PRN 30 05/30/18 Rx Tylenol (Acetaminophen) 325 Mg Tablet 650 Mg PO PRN Q4HRS PRN 10 05/30/18 Rx Ventolin Hfa Inhaler (Albuterol Sulfate) 18 Gm Hfa.aer.ad 2 Puff INH Q4HRS 05/10/18 Rx Vitamin D3 (Cholecalciferol (Vitamin D3)) 5,000 Unit Tablet 5,000 Unit PO DAILY 03/15/18 Reported Reglan (Metoclopramide Hcl) 10 Mg Tablet 0.5 Tab PO QID 30 02/14/18 Rx Potassium Chloride 20 Meq Tablet.er 20 Meq PO DAILY 01/13/18 Reported Protonix (Pantoprazole Sodium) 20 Mg Tablet.dr 1 Tab PO DAILY 11/18/17 Reported Atorvastatin Calcium 10 Mg Tablet 10 Mg PO HS 08/21/17 Reported Albuterol Sulfate Neb Soln (Albuterol Sulfate) 2.5 Mg/3 Ml Vial.neb 1 Vial NEB PRN Q4HRS 07/10/17 Rx Symbicort 160-4.5 Mcg Inhaler (Budesonide/Formoterol Fumarate) 10.2 Gm Hfa.aer.ad 2 Puff IH BID 09/21/15 Reported Impression . FULL NOTE DICTATED THANKS A[facility]D CLEARED TO START PULM REHAB SCOTT COOK MD Jul 26, 2018 14:21
[2018-07-26 15:00] VITALS: BP 130/82
[2018-07-26] MEDS ORDERED: RIVAROXABAN 10 MG TABLET. PO SCH (17:00)
[2018-07-26 17:07] LABS: BILIRUBIN,URINE NEGATIVE (NEG); CLARITY,URINE CLEAR; COLOR,URINE YELLOW; NITRITE,URINE NEGATIVE (NEG); PH,URINE 6.5; PROTEIN,URINE NEGATIVE (NEG-TRACE)
[2018-07-26 17:20] LABS: BACTERIA,URINE FEW /HPF (0-FEW); RBC,URINE 0 /HPF (0-2); SQUAMOUS EPITHELIAL CELL,UR FEW /LPF; WBC,URINE 0 /HPF (0-4)
[2018-07-26 19:59] VITALS: BP 117/73
[2018-07-26] MEDS: ATORVASTATIN CALCIUM 10 MG TABLET. PO SCH (21:03)
--- NOTE | 2018-07-26 22:24 | CONS ---
DATE OF CONSULTATION: 07/26/2018 REASON FOR CONSULTATION: The patient seen in pulmonary consultation at the request of Dr. Hathaway for increasing shortness of air. HISTORY OF PRESENT ILLNESS: The patient is well known to me from previous hospitalization, 58-year-old with chronic respiratory failure, bullous emphysema. He has had previous evaluation for possibility of bullectomy. The surgeon felt that he was a poor candidate. The patient was discharged home last week some time and the insurance company did not cover home BiPAP or Trilogy. He now presents with progressive dyspnea and tachypnea. He performed several breathing treatments at home with no significant improvement in his symptoms. His arterial blood gas revealed a pH of 7.39, PaCO2 of 41, and paO2 of 95. The patient informed me that he was recently evaluated at for pulmonary rehab. They were concerned about his previous history of PE. As a consequence, he was placed on hold for initiating pulmonary rehab. PAST MEDICAL HISTORY: Otherwise remarkable for chronic respiratory failure, severe centrilobular emphysema. He also has severe bullous emphysema and large bullae, not deemed a surgical candidate. He has had previous chronic right-sided heart failure, chronic back pain with compression fracture, previous history of pulmonary embolism. I do not recall the details. HOME MEDICATIONS: List included nebulized treatments, Xarelto, atorvastatin, tramadol, Tylenol, lorazepam, furosemide, Symbicort, guaifenesin, Protonix, Reglan, and vitamin D3. REVIEW OF SYSTEMS: CONSTITUTIONAL: No fever or chills. EYES: No change in visual acuity. HEENT: No nasal congestion or sore throat. PULMONARY: As indicated above. CARDIOVASCULAR: As indicated above. GASTROINTESTINAL: No nausea, vomiting, diarrhea. GENITOURINARY: No dysuria or frequency. MUSCULOSKELETAL: No localized muscle aches and joint pain. SKIN: No new skin rashes. NEUROLOGIC: No headaches, diplopia, or blurred vision. ALLERGIES: ACETAMINOPHEN. SOCIAL HISTORY: He is not smoking. FAMILY HISTORY: No family history of lung cancer. PHYSICAL EXAMINATION: VITAL SIGNS: Stable. O2 saturation on 2 liters was greater than 95%. HEENT: Eyes, sclerae were nonicteric. NECK: Jugular venous distention was not elevated. No lymphadenopathy. CHEST: Full expansion. LUNGS: Poor airway flow with no expiratory wheeze, prolonged expiratory phase. CARDIOVASCULAR: Regular rate and rhythm with S1, S2, no S3. ABDOMEN: Soft, nontender, slightly distended. EXTREMITIES: No clubbing or cyanosis. Minimal edema. NEUROLOGIC: The patient was awake, alert, following commands. A detailed neuro exam was not performed. LABORATORY DATA: Chest x-ray was reviewed, no acute cardiopulmonary process. Electrolytes were noted. BUN and creatinine were noted. White count was normal. IMPRESSION: 1. Acute exacerbation of chronic obstructive pulmonary disease. 2. Mysom-ef-wndxicj hypoxemic respiratory failure. 3. Verit-bf-pbeswee cor pulmonale. 4. History of pulmonary embolism. 5. Large bullae on the left. 6. Hyperlipidemia. 7. Hypertension. 8. Tobacco dependence, in remission. PLAN: 1. We will continue nebulized treatments, oxygen supplementation. 2. The patient cleared to start pulmonary rehab as an outpatient. 3. The patient instructed on avoiding processed foods and trying to walk as much as possible on a daily basis. I do appreciate the privilege in sharing the patient's care. SCOTT COOK MD DR: MAVERICK/efrain JOB#: [id number] / [id number]
[2018-07-26 23:59] VITALS: BP 124/85
[2018-07-27] MEDS: ALBUTEROL SULFATE 2.5 MG/3 ML NEBU. NEB SCH ×2 (03:27→07:37)
[2018-07-27 03:59] VITALS: BP 118/72
[2018-07-27 07:00] VITALS: BP 114/70
[2018-07-27] MEDS: BUDESONIDE 0.5 MG/2 ML NEBU. NEB SCH ×2 (07:37→19:26)
--- NOTE | 2018-07-27 07:43 | PDOC ---
PULMONARY PROGRESS NOTES Subjective on 02, 3 lpm, sob cough better, has mild back pain, on home 02 3 lpm Vitals Vital Signs Date Time Temp Pulse Resp B/P (MAP) Pulse Ox O2 Delivery O2 Flow Rate FiO2 07/27/18 07:37 100 Nasal Cannula 3.0 07/27/18 03:59 97.9 99 20 118/72 (87) 97.9 ROS: No Nausea General: Alert, No acute distress Lungs: Crackles, Other Cardiovascular: S1, S2 Abdomen: Soft, Non-tender Neuro Exam: Alert Extremities: No Edema, Other Skin: Warm Labs Laboratory Tests Test 07/26/18 02:45 07/26/18 04:00 07/26/18 11:10 07/26/18 16:52 Prothrombin Time 14.8 SEC (11.7-14.0) Prothromb Time International Ratio 1.2 (0.8-1.1) Activated Partial Thromboplast Time 28 SEC (24-38) Sodium Level 138 mmol/L (136-145) Potassium Level 4.8 mmol/L (3.5-5.1) Chloride Level 97 mmol/L (98-107) Carbon Dioxide Level 29 mmol/L (21-32) Anion Gap 12 (6-14) Blood Urea Nitrogen 18 mg/dL (8-26) Creatinine 1.0 mg/dL (0.7-1.3) Estimated GFR (Cockcroft-Gault) 92.5 BUN/Creatinine Ratio 18 (6-20) Glucose Level 160 mg/dL (70-99) Calcium Level 9.1 mg/dL (8.5-10.1) Magnesium Level 2.0 mg/dL (1.8-2.4) Total Bilirubin 0.5 mg/dL (0.2-1.0) Aspartate Amino Transf (AST/SGOT) 33 U/L (15-37) Alanine Aminotransferase (ALT/SGPT) 35 U/L (16-63) Alkaline Phosphatase 106 U/L (46-116) Creatine Kinase 248 U/L (39-308) Creatine Kinase MB (Mass) 4.4 ng/mL (0.0-3.6) Creatine Kinase MB Relative Index 1.8 % (0-4) Troponin I Quantitative 0.017 ng/mL (0.000-0.055) OR-Pod-N-Type Natriuretic Peptide 58 pg/mL (0-124) Total Protein 6.5 g/dL (6.4-8.2) Albumin 3.5 g/dL (3.4-5.0) Albumin/Globulin Ratio 1.2 (1.0-1.7) Lipase 178 U/L (73-393) White Blood Count 7.9 x10^3/uL (4.0-11.0) Red Blood Count 3.39 x10^6/uL (4.30-5.70) Hemoglobin 9.6 g/dL (13.0-17.5) Hematocrit 28.9 % (39.0-53.0) Mean Corpuscular Volume 85 fL (79-100) Mean Corpuscular Hemoglobin 29 pg (25-35) Mean Corpuscular Hemoglobin Concent 33 g/dL (31-37) Red Cell Distribution Width 16.2 % (11.5-14.5) Platelet Count 227 x10^3/uL (140-400) Neutrophils (%) (Auto) 92 % (31-73) Lymphocytes (%) (Auto) 2 % (24-48) Monocytes (%) (Auto) 6 % (0-9) Eosinophils (%) (Auto) 0 % (0-3) Basophils (%) (Auto) 0 % (0-3) Neutrophils # (Auto) 7.3 x10^3uL (1.8-7.7) Lymphocytes # (Auto) 0.2 x10^3/uL (1.0-4.8) Monocytes # (Auto) 0.5 x10^3/uL (0.0-1.1) Eosinophils # (Auto) 0.0 x10^3/uL (0.0-0.7) Basophils # (Auto) 0.0 x10^3/uL (0.0-0.2) Segmented Neutrophils % 91 % (35-66) Band Neutrophils % 1 % (0-9) Lymphocytes % 3 % (24-48) Monocytes % 5 % (0-10) Platelet Estimate Adequate (ADEQUATE) Polychromasia Slight Hypochromasia Slight Anisocytosis Slight Spherocytes Occ Ovalocytes Few Helmet Cells Occ Lactic Acid Level 1.6 mmol/L (0.4-2.0) O2 Saturation 96 % (92-99) Arterial Blood pH 7.39 (7.35-7.45) Arterial Blood pCO2 at Patient Temp 41 mmHg (35-46) Arterial Blood pO2 at Patient Temp 95 mmHg (65-108) Arterial Blood HCO3 25 mmol/L (21-28) Arterial Blood Base Excess 0 mmol/L (-3-3) FiO2 32 Urine Collection Type Unknown Urine Color Yellow Urine Clarity Clear Urine pH 6.5 Urine Specific [place] 1.010 Urine Protein Negative mg/dL (NEG-TRACE) Urine Glucose (UA) Negative mg/dL (NEG) Urine Ketones (Stick) Negative mg/dL (NEG) Urine Blood Negative (NEG) Urine Nitrite Negative (NEG) Urine Bilirubin Negative (NEG) Urine Urobilinogen Dipstick 1.0 mg/dL (0.2 mg/dL) Urine Leukocyte Esterase Negative (NEG) Urine RBC 0 /HPF (0-2) Urine WBC 0 /HPF (0-4) Urine Squamous Epithelial Cells Few /LPF Urine Bacteria Few /HPF (0-FEW) Laboratory Tests Test 07/26/18 11:10 07/26/18 16:52 O2 Saturation 96 % (92-99) Arterial Blood pH 7.39 (7.35-7.45) Arterial Blood pCO2 at Patient Temp 41 mmHg (35-46) Arterial Blood pO2 at Patient Temp 95 mmHg (65-108) Arterial Blood HCO3 25 mmol/L (21-28) Arterial Blood Base Excess 0 mmol/L (-3-3) FiO2 32 Urine Collection Type Unknown Urine Color Yellow Urine Clarity Clear Urine pH 6.5 Urine Specific [place] 1.010 Urine Protein Negative mg/dL (NEG-TRACE) Urine Glucose (UA) Negative mg/dL (NEG) Urine Ketones (Stick) Negative mg/dL (NEG) Urine Blood Negative (NEG) Urine Nitrite Negative (NEG) Urine Bilirubin Negative (NEG) Urine Urobilinogen Dipstick 1.0 mg/dL (0.2 mg/dL) Urine Leukocyte Esterase Negative (NEG) Urine RBC 0 /HPF (0-2) Urine WBC 0 /HPF (0-4) Urine Squamous Epithelial Cells Few /LPF Urine Bacteria Few /HPF (0-FEW) Medications Active Scripts Medications Dose Route/Sig Max Daily Dose Days Date Category Dose Instructions Tramadol Hcl 50 Mg Tablet 50 Mg PO PRN Q6HRS PRN 6 07/12/18 Rx Ativan (Lorazepam) 1 Mg Tablet 1 Mg PO PRN BID PRN 6 07/12/18 Rx Xarelto (Rivaroxaban) 20 Mg Tablet 20 Mg PO DAILY 30 07/12/18 Rx START on 07/20/2018 Furosemide 40 Mg Tablet 1 Tab PO DAILY 06/20/18 Reported Guaifenesin 100 Mg/5 Ml Liquid 200 Mg PO PRN Q4HRS PRN 30 05/30/18 Rx Tylenol (Acetaminophen) 325 Mg Tablet 650 Mg PO PRN Q4HRS PRN 10 05/30/18 Rx Ventolin Hfa Inhaler (Albuterol Sulfate) 18 Gm Hfa.aer.ad 2 Puff INH Q4HRS 05/10/18 Rx Vitamin D3 (Cholecalciferol (Vitamin D3)) 5,000 Unit Tablet 5,000 Unit PO DAILY 03/15/18 Reported Reglan (Metoclopramide Hcl) 10 Mg Tablet 0.5 Tab PO QID 30 02/14/18 Rx Potassium Chloride 20 Meq Tablet.er 20 Meq PO DAILY 01/13/18 Reported Protonix (Pantoprazole Sodium) 20 Mg Tablet.dr 1 Tab PO DAILY 11/18/17 Reported Atorvastatin Calcium 10 Mg Tablet 10 Mg PO HS 08/21/17 Reported Albuterol Sulfate Neb Soln (Albuterol Sulfate) 2.5 Mg/3 Ml Vial.neb 1 Vial NEB PRN Q4HRS 07/10/17 Rx Symbicort 160-4.5 Mcg Inhaler (Budesonide/Formoterol Fumarate) 10.2 Gm Hfa.aer.ad 2 Puff IH BID 09/21/15 Reported Impression . IMPRESSION: 1. Acute exacerbation of chronic obstructive pulmonary disease. 2. Jelaw-ko-rmujszz hypoxemic respiratory failure. 3. Yeqbs-wq-dwahuvc cor pulmonale. 4. History of pulmonary embolism. 5. Large bullae on the left. 6. Hyperlipidemia. 7. Hypertension. 8. Tobacco dependence, in remission. Plan . PLAN: 1. We will continue nebulized treatments, change alb to duo neb, oxygen supplementation. 2. The patient cleared to start pulmonary rehab as an outpatient. 3. The patient instructed on avoiding processed foods and trying to walk as much as possible on a daily basis. 4. ICS 5. advised to quit smoking for ever 6. xeralto discussed w pt, rt TAMAR RING MD Jul 27, 2018 07:43
[2018-07-27] MEDS: RIVAROXABAN 10 MG TABLET. PO SCH (08:18)
[2018-07-27] MEDS: PANTOPRAZOLE 40 MG TABLET.DR. PO SCH (08:18)
[2018-07-27] MEDS: POTASSIUM CHLORIDE 20 MEQ TABLET.ER. PO SCH (08:18)
[2018-07-27] MEDS: CHOLECALCIFEROL (VITAMIN D3) 5,000 UNIT CAPSULE PO SCH (08:18)
[2018-07-27] MEDS: FUROSEMIDE 40 MG TABLET. PO SCH (08:18)
[2018-07-27] MEDS: METOCLOPRAMIDE 10 MG TABLET. PO SCH ×4 (08:19→21:18)
--- NOTE | 2018-07-27 09:59 | PDOC ---
[facility] PROGRESS NOTE Chief Complaint Chief Complaint Respiratory failure End stage COPD CHF Debility Multiple comorbidities History of Present Illness History of Present Illness Patient seen and examined this morning He is sitting up in the chair watching TV on his phone Appears very debilitated depressed week short of breath probably needs hospice Discussed with the healthcare team Reviewed the notes in the chart Vitals Vitals Vital Signs Date Time Temp Pulse Resp B/P (MAP) Pulse Ox O2 Delivery O2 Flow Rate FiO2 07/27/18 07:37 100 Nasal Cannula 3.0 07/27/18 07:00 97.4 89 17 114/70 (85) 97.4 Physical Exam General: Alert, Oriented X3, mild distress Heart: Regular rate, Normal S1 Lungs: Crackles, Other Abdomen: Normal bowel sounds, Other Extremities: No clubbing, No cyanosis Skin: No rashes, No breakdown Labs Labs: Laboratory Tests Test 07/26/18 11:10 07/26/18 16:52 O2 Saturation 96 % (92-99) Arterial Blood pH 7.39 (7.35-7.45) Arterial Blood pCO2 at Patient Temp 41 mmHg (35-46) Arterial Blood pO2 at Patient Temp 95 mmHg (65-108) Arterial Blood HCO3 25 mmol/L (21-28) Arterial Blood Base Excess 0 mmol/L (-3-3) FiO2 32 Urine Collection Type Unknown Urine Color Yellow Urine Clarity Clear Urine pH 6.5 Urine Specific [place] 1.010 Urine Protein Negative mg/dL (NEG-TRACE) Urine Glucose (UA) Negative mg/dL (NEG) Urine Ketones (Stick) Negative mg/dL (NEG) Urine Blood Negative (NEG) Urine Nitrite Negative (NEG) Urine Bilirubin Negative (NEG) Urine Urobilinogen Dipstick 1.0 mg/dL (0.2 mg/dL) Urine Leukocyte Esterase Negative (NEG) Urine RBC 0 /HPF (0-2) Urine WBC 0 /HPF (0-4) Urine Squamous Epithelial Cells Few /LPF Urine Bacteria Few /HPF (0-FEW) Assessment and Plan Assessmemt and Plan Problems Medical Problems: (1) Chronic back pain Status: Acute (2) COPD with exacerbation Status: Acute IMPRESSION Acute on chronic respiratory failure Acute on chronic systolic and diastolic heart failure Acute exacerbation of chronic obstructive pulmonary disease. Siocn-dg-dkwkjhi hypoxemic respiratory failure. Fewnd-uy-vanbrhv cor pulmonale. History of pulmonary embolism. Large bullae on the left. Hyperlipidemia. Hypertension. Tobacco dependence, in remission Depression Debility Multiple comorbidities Unable to take care of himself. Plan Plan . PLAN: Appreciate subspecialist input Cardiac monitoring DVT prophylaxis Full code Per pulmonary we'll continue the following 1. We will continue nebulized treatments, change to duo neb, oxygen supplementation. 2. The patient cleared to start pulmonary rehab as an outpatient. 3. The patient instructed on avoiding processed foods and trying to walk as much as possible on a daily basis. 4. ICS 5. advised to quit smoking for ever discussed w pt, rt Suspect he will eventually need hospice as he keeps getting readmitted for the same problems and appears to have end-stage disease Comment Review of Relevant I have reviewed the following items franki (where applicable) has been applied. Labs Laboratory Tests Test 07/26/18 02:45 07/26/18 04:00 07/26/18 11:10 07/26/18 16:52 Prothrombin Time 14.8 SEC (11.7-14.0) Prothromb Time International Ratio 1.2 (0.8-1.1) Activated Partial Thromboplast Time 28 SEC (24-38) Sodium Level 138 mmol/L (136-145) Potassium Level 4.8 mmol/L (3.5-5.1) Chloride Level 97 mmol/L (98-107) Carbon Dioxide Level 29 mmol/L (21-32) Anion Gap 12 (6-14) Blood Urea Nitrogen 18 mg/dL (8-26) Creatinine 1.0 mg/dL (0.7-1.3) Estimated GFR (Cockcroft-Gault) 92.5 BUN/Creatinine Ratio 18 (6-20) Glucose Level 160 mg/dL (70-99) Calcium Level 9.1 mg/dL (8.5-10.1) Magnesium Level 2.0 mg/dL (1.8-2.4) Total Bilirubin 0.5 mg/dL (0.2-1.0) Aspartate Amino Transf (AST/SGOT) 33 U/L (15-37) Alanine Aminotransferase (ALT/SGPT) 35 U/L (16-63) Alkaline Phosphatase 106 U/L (46-116) Creatine Kinase 248 U/L (39-308) Creatine Kinase MB (Mass) 4.4 ng/mL (0.0-3.6) Creatine Kinase MB Relative Index 1.8 % (0-4) Troponin I Quantitative 0.017 ng/mL (0.000-0.055) ZN-[id number]-Type Natriuretic Peptide 58 pg/mL (0-124) Total Protein 6.5 g/dL (6.4-8.2) Albumin 3.5 g/dL (3.4-5.0) Albumin/Globulin Ratio 1.2 (1.0-1.7) Lipase 178 U/L (73-393) White Blood Count 7.9 x10^3/uL (4.0-11.0) Red Blood Count 3.39 x10^6/uL (4.30-5.70) Hemoglobin 9.6 g/dL (13.0-17.5) Hematocrit 28.9 % (39.0-53.0) Mean Corpuscular Volume 85 fL (79-100) Mean Corpuscular Hemoglobin 29 pg (25-35) Mean Corpuscular Hemoglobin Concent 33 g/dL (31-37) Red Cell Distribution Width 16.2 % (11.5-14.5) Platelet Count 227 x10^3/uL (140-400) Neutrophils (%) (Auto) 92 % (31-73) Lymphocytes (%) (Auto) 2 % (24-48) Monocytes (%) (Auto) 6 % (0-9) Eosinophils (%) (Auto) 0 % (0-3) Basophils (%) (Auto) 0 % (0-3) Neutrophils # (Auto) 7.3 x10^3uL (1.8-7.7) Lymphocytes # (Auto) 0.2 x10^3/uL (1.0-4.8) Monocytes # (Auto) 0.5 x10^3/uL (0.0-1.1) Eosinophils # (Auto) 0.0 x10^3/uL (0.0-0.7) Basophils # (Auto) 0.0 x10^3/uL (0.0-0.2) Segmented Neutrophils % 91 % (35-66) Band Neutrophils % 1 % (0-9) Lymphocytes % 3 % (24-48) Monocytes % 5 % (0-10) Platelet Estimate Adequate (ADEQUATE) Polychromasia Slight Hypochromasia Slight Anisocytosis Slight Spherocytes Occ Ovalocytes Few Helmet Cells Occ Lactic Acid Level 1.6 mmol/L (0.4-2.0) O2 Saturation 96 % (92-99) Arterial Blood pH 7.39 (7.35-7.45) Arterial Blood pCO2 at Patient Temp 41 mmHg (35-46) Arterial Blood pO2 at Patient Temp 95 mmHg (65-108) Arterial Blood HCO3 25 mmol/L (21-28) Arterial Blood Base Excess 0 mmol/L (-3-3) FiO2 32 Urine Collection Type Unknown Urine Color Yellow Urine Clarity Clear Urine pH 6.5 Urine Specific [place] 1.010 Urine Protein Negative mg/dL (NEG-TRACE) Urine Glucose (UA) Negative mg/dL (NEG) Urine Ketones (Stick) Negative mg/dL (NEG) Urine Blood Negative (NEG) Urine Nitrite Negative (NEG) Urine Bilirubin Negative (NEG) Urine Urobilinogen Dipstick 1.0 mg/dL (0.2 mg/dL) Urine Leukocyte Esterase Negative (NEG) Urine RBC 0 /HPF (0-2) Urine WBC 0 /HPF (0-4) Urine Squamous Epithelial Cells Few /LPF Urine Bacteria Few /HPF (0-FEW) Laboratory Tests Test 07/26/18 11:10 07/26/18 16:52 O2 Saturation 96 % (92-99) Arterial Blood pH 7.39 (7.35-7.45) Arterial Blood pCO2 at Patient Temp 41 mmHg (35-46) Arterial Blood pO2 at Patient Temp 95 mmHg (65-108) Arterial Blood HCO3 25 mmol/L (21-28) Arterial Blood Base Excess 0 mmol/L (-3-3) FiO2 32 Urine Collection Type Unknown Urine Color Yellow Urine Clarity Clear Urine pH 6.5 Urine Specific [place] 1.010 Urine Protein Negative mg/dL (NEG-TRACE) Urine Glucose (UA) Negative mg/dL (NEG) Urine Ketones (Stick) Negative mg/dL (NEG) Urine Blood Negative (NEG) Urine Nitrite Negative (NEG) Urine Bilirubin Negative (NEG) Urine Urobilinogen Dipstick 1.0 mg/dL (0.2 mg/dL) Urine Leukocyte Esterase Negative (NEG) Urine RBC 0 /HPF (0-2) Urine WBC 0 /HPF (0-4) Urine Squamous Epithelial Cells Few /LPF Urine Bacteria Few /HPF (0-FEW) Medications Current Medications Dexamethasone (Decadron) 10 mg 1X ONCE PO Last administered on 07/26/18at 02:56; Start 07/26/18 at 02:45; Stop 07/26/18 at 02:46; Status DC Lorazepam (Ativan Inj) 1 mg 1X ONCE IV Last administered on 07/26/18at 02:55; Start 07/26/18 at 02:45; Stop 07/26/18 at 02:46; Status DC Albuterol/ Ipratropium (Duoneb) 3 ml 1X ONCE NEB Last administered on 07/26/18at 04:09; Start 07/26/18 at 04:00; Stop 07/26/18 at 04:01; Status DC Orphenadrine Citrate (Norflex) 60 mg 1X ONCE IV Last administered on 07/26/18at 05:28; Start 07/26/18 at 05:00; Stop 07/26/18 at 05:01; Status DC Ondansetron HCl (Zofran) 4 mg PRN Q8HRS PRN IV NAUSEA/VOMITING Last administered on 07/27/18at 00:11; Start 07/26/18 at 05:00; Stop 07/27/18 at 04:59; Status DC Albuterol Sulfate (Ventolin Neb Soln) 2.5 mg PRN Q4HRS PRN NEB SHORTNESS OF BREATH; Start 07/26/18 at 09:00 Atorvastatin Calcium (Lipitor) 10 mg HS PO Last administered on 07/26/18at 21:03; Start 07/26/18 at 21:00 Furosemide (Lasix) 40 mg DAILY PO Last administered on 07/27/18at 08:18; Start 07/26/18 at 09:00 Guaifenesin (Robitussin) 200 mg PRN Q4HRS PRN PO COUGH; Start 07/26/18 at 09:00 Lorazepam (Ativan) 1 mg PRN BID PRN PO ANXIETY / AGITATION; Start 07/26/18 at 09:00 Metoclopramide HCl (Reglan) 5 mg QID PO Last administered on 07/27/18at 08:19; Start 07/26/18 at 09:00 Albuterol Sulfate (Ventolin Neb Soln) 2.5 mg Q4HRS NEB Last administered on 07/27/18at 07:37; Start 07/26/18 at 12:00; Stop 07/27/18 at 07:44; Status DC Budesonide (Pulmicort) 0.5 mg RTBID NEB Last administered on 07/27/18at 07:37; Start 07/26/18 at 09:30 Vitamin D (Vitamin D3) 5,000 unit DAILY PO Last administered on 07/27/18at 08:18; Start 07/26/18 at 09:30 Pantoprazole Sodium (Protonix) 40 mg DAILYAC PO Last administered on 07/27/18at 08:18; Start 07/26/18 at 09:30 Potassium Chloride (Klor-Con) 20 meq DAILYWBKFT PO Last administered on 07/27/18at 08:18; Start 07/26/18 at 09:30 Rivaroxaban (Xarelto) 20 mg DAILYWSUP PO ; Start 07/26/18 at 17:00; Stop 07/26/18 at 17:00; Status DC Tramadol HCl (Ultram) 50 mg PRN Q6HRS PRN PO PAIN Last administered on 07/26/18at 23:39; Start 07/26/18 at 09:15 Rivaroxaban (Xarelto) 20 mg DAILY PO Last administered on 07/27/18at 08:18; St art 07/26/18 at 11:00 Info (Anti-Coagulation Monitoring By Pharmacy) 1 each PRN DAILY PRN MC SEE COMMENTS; Start 07/26/18 at 14:30 Albuterol/ Ipratropium (Duoneb) 3 ml RTQID NEB ; Start 07/27/18 at 08:00 Active Scripts Active Tramadol Hcl 50 Mg Tablet 50 Mg PO PRN Q6HRS PRN 6 Days Ativan (Lorazepam) 1 Mg Tablet 1 Mg PO PRN BID PRN 6 Days Xarelto (Rivaroxaban) 20 Mg Tablet 20 Mg PO DAILY 30 Days START on 07/20/2018 Guaifenesin 100 Mg/5 Ml Liquid 200 Mg PO PRN Q4HRS PRN 30 Days Tylenol (Acetaminophen) 325 Mg Tablet 650 Mg PO PRN Q4HRS PRN 10 Days Ventolin Hfa Inhaler (Albuterol Sulfate) 18 Gm Hfa.aer.ad 2 Puff INH Q4HRS Reglan (Metoclopramide Hcl) 10 Mg Tablet 0.5 Tab PO QID 30 Days Albuterol Sulfate Neb Soln (Albuterol Sulfate) 2.5 Mg/3 Ml Vial.neb 1 Vial NEB PRN Q4HRS Reported Furosemide 40 Mg Tablet 1 Tab PO DAILY Vitamin D3 (Cholecalciferol (Vitamin D3)) 5,000 Unit Tablet 5,000 Unit PO DAILY Potassium Chloride 20 Meq Tablet.er 20 Meq PO DAILY Protonix (Pantoprazole Sodium) 20 Mg Tablet.dr 1 Tab PO DAILY Atorvastatin Calcium 10 Mg Tablet 10 Mg PO HS Symbicort 160-4.5 Mcg Inhaler (Budesonide/Formoterol Fumarate) 10.2 Gm Hfa.aer.ad 2 Puff IH BID Vitals/I & O Vital Sign - Last 24 Hours 07/26/18 07/26/18 07/26/18 07/26/18 11:00 11:19 15:00 15:13 Temp 98.3 98.1 98.3 98.1 Pulse 66 63 Resp 16 14 B/P (MAP) 128/81 (97) 130/82 (98) Pulse Ox 98 99 96 O2 Delivery Nasal Cannula Nasal Cannula Nasal Cannula Nasal Cannula O2 Flow Rate 3.0 3.0 3.0 3.0 07/26/18 07/26/18 07/26/18 07/26/18 16:35 17:46 18:30 18:31 Pulse Ox 96 O2 Delivery Nasal Cannula Nasal Cannula Nasal Cannula Nasal Cannula O2 Flow Rate 3.0 3.0 3.0 3.0 07/26/18 07/26/18 07/26/18 07/26/18 19:59 20:00 23:33 23:59 Temp 98.1 98.2 98.1 98.2 Pulse 110 104 Resp 19 B/P (MAP) 117/73 (88) 124/85 (98) Pulse Ox 94 96 O2 Delivery Nasal Cannula Nasal Cannula Nasal Cannula Nasal Cannula O2 Flow Rate 3.0 3.0 3.0 3.0 07/27/18 07/27/18 07/27/18 07/27/18 03:27 03:59 07:00 07:37 Temp 97.9 97.4 97.9 97.4 Pulse 99 89 Resp 20 17 B/P (MAP) 118/72 (87) 114/70 (85) Pulse Ox 96 99 100 O2 Delivery Nasal Cannula Nasal Cannula Nasal Cannula Nasal Cannula O2 Flow Rate 3.0 3.0 3.0 3.0 Intake and Output 07/26/18 07/26/18 07/27/18 15:00 23:00 07:00 Intake Total 480 ml 120 ml 0 ml Output Total 0 ml 825 ml 150 ml Balance 480 ml -705 ml -150 ml TAMMY MARKS III DO Jul 27, 2018 09:59
[2018-07-27] MEDS: traMADol 50 MG TABLET PO PRN ×2 (10:25→21:21)
[2018-07-27 11:00] VITALS: BP 109/57
[2018-07-27] MEDS: IPRATRPIUM/ALBUTEROL 0.5/2.5MG 3 ML NEBU. NEB SCH ×3 (11:35→19:26)
[2018-07-27] MEDS: ANTI-COAG MONITOR BY PHARMACY. MC PRN (12:37)
[2018-07-27 15:00] VITALS: BP 100/66
[2018-07-27] MEDS: oxyCODONE IR 5 MG TABLET PO PRN (16:12)
[2018-07-27 19:00] VITALS: BP 98/68
[2018-07-27] MEDS: ATORVASTATIN CALCIUM 10 MG TABLET. PO SCH (21:18)
[2018-07-27 23:04] VITALS: BP 94/66
[2018-07-28] VITALS (9 sets, daily range): BP systolic 107–157; BP diastolic 69–107
[2018-07-28] MEDS: oxyCODONE IR 5 MG TABLET PO PRN ×2 (01:51→08:18)
[2018-07-28] MEDS: traMADol 50 MG TABLET PO PRN ×2 (03:39→11:22)
[2018-07-28] MEDS: BUDESONIDE 0.5 MG/2 ML NEBU. NEB SCH ×2 (05:12→20:12)
[2018-07-28] MEDS: IPRATRPIUM/ALBUTEROL 0.5/2.5MG 3 ML NEBU. NEB SCH ×4 (05:12→20:12)
--- NOTE | 2018-07-28 07:37 | PDOC ---
PULMONARY PROGRESS NOTES Subjective on 02, 3 lpm, sob better, has cough, sputum, has sinus pressure, nasal congestion, rocha. on home 02 3 lpm Vitals Vital Signs Date Time Temp Pulse Resp B/P (MAP) Pulse Ox O2 Delivery O2 Flow Rate FiO2 07/28/18 05:12 100 Nasal Cannula 3.0 07/28/18 03:05 98.9 114 20 119/69 (86) 98.9 ROS: No Nausea General: Alert, No acute distress Lungs: Wheezing, Crackles Cardiovascular: S1, S2 Abdomen: Soft, Non-tender Neuro Exam: Alert Extremities: No Edema, Other Skin: Warm Labs Laboratory Tests Test 07/26/18 11:10 07/26/18 16:52 O2 Saturation 96 % (92-99) Arterial Blood pH 7.39 (7.35-7.45) Arterial Blood pCO2 at Patient Temp 41 mmHg (35-46) Arterial Blood pO2 at Patient Temp 95 mmHg (65-108) Arterial Blood HCO3 25 mmol/L (21-28) Arterial Blood Base Excess 0 mmol/L (-3-3) FiO2 32 Urine Collection Type Unknown Urine Color Yellow Urine Clarity Clear Urine pH 6.5 Urine Specific [place] 1.010 Urine Protein Negative mg/dL (NEG-TRACE) Urine Glucose (UA) Negative mg/dL (NEG) Urine Ketones (Stick) Negative mg/dL (NEG) Urine Blood Negative (NEG) Urine Nitrite Negative (NEG) Urine Bilirubin Negative (NEG) Urine Urobilinogen Dipstick 1.0 mg/dL (0.2 mg/dL) Urine Leukocyte Esterase Negative (NEG) Urine RBC 0 /HPF (0-2) Urine WBC 0 /HPF (0-4) Urine Squamous Epithelial Cells Few /LPF Urine Bacteria Few /HPF (0-FEW) Medications Active Scripts Medications Dose Route/Sig Max Daily Dose Days Date Category Dose Instructions Tramadol Hcl 50 Mg Tablet 50 Mg PO PRN Q6HRS PRN 6 07/12/18 Rx Ativan (Lorazepam) 1 Mg Tablet 1 Mg PO PRN BID PRN 6 07/12/18 Rx Xarelto (Rivaroxaban) 20 Mg Tablet 20 Mg PO DAILY 30 07/12/18 Rx START on 07/20/2018 Furosemide 40 Mg Tablet 1 Tab PO DAILY 06/20/18 Reported Guaifenesin 100 Mg/5 Ml Liquid 200 Mg PO PRN Q4HRS PRN 30 05/30/18 Rx Tylenol (Acetaminophen) 325 Mg Tablet 650 Mg PO PRN Q4HRS PRN 10 05/30/18 Rx Ventolin Hfa Inhaler (Albuterol Sulfate) 18 Gm Hfa.aer.ad 2 Puff INH Q4HRS 05/10/18 Rx Vitamin D3 (Cholecalciferol (Vitamin D3)) 5,000 Unit Tablet 5,000 Unit PO DAILY 03/15/18 Reported Reglan (Metoclopramide Hcl) 10 Mg Tablet 0.5 Tab PO QID 30 02/14/18 Rx Potassium Chloride 20 Meq Tablet.er 20 Meq PO DAILY 01/13/18 Reported Protonix (Pantoprazole Sodium) 20 Mg Tablet.dr 1 Tab PO DAILY 11/18/17 Reported Atorvastatin Calcium 10 Mg Tablet 10 Mg PO HS 08/21/17 Reported Albuterol Sulfate Neb Soln (Albuterol Sulfate) 2.5 Mg/3 Ml Vial.neb 1 Vial NEB PRN Q4HRS 07/10/17 Rx Symbicort 160-4.5 Mcg Inhaler (Budesonide/Formoterol Fumarate) 10.2 Gm Hfa.aer.ad 2 Puff IH BID 09/21/15 Reported Impression . IMPRESSION: 1. Acute exacerbation of chronic obstructive pulmonary disease. 2. Timfz-vj-zdtrznj hypoxemic respiratory failure. 3. Jgayt-jr-mhometq cor pulmonale. 4. History of pulmonary embolism. 5. Large bullae on the left. 6. Hyperlipidemia. 7. Hypertension. 8. Tobacco dependence, in remission. Plan . PLAN: 1. continue nebulized treatments, duo neb, oxygen supplementation. 2. The patient cleared to start pulmonary rehab as an outpatient. 3. The patient instructed on avoiding processed foods and trying to walk as much as possible on a daily basis. 4. ICS 5. advised to quit smoking for ever 6. xeralto 7. add flonase, side effects discussed 8. has wheezing add prednisone 40 mg daily w taper by 10 mg q 3d discussed w pt, rt TAMAR RING MD Jul 28, 2018 07:37
[2018-07-28] MEDS: CHOLECALCIFEROL (VITAMIN D3) 5,000 UNIT CAPSULE PO SCH (08:15)
[2018-07-28] MEDS: POTASSIUM CHLORIDE 20 MEQ TABLET.ER. PO SCH (08:16)
[2018-07-28] MEDS: FUROSEMIDE 40 MG TABLET. PO SCH (08:17)
[2018-07-28] MEDS: predniSONE 20 MG TABLET PO SCH (08:17)
[2018-07-28] MEDS: RIVAROXABAN 10 MG TABLET. PO SCH (08:17)
[2018-07-28] MEDS: METOCLOPRAMIDE 10 MG TABLET. PO SCH ×4 (08:17→22:08)
[2018-07-28] MEDS: PANTOPRAZOLE 40 MG TABLET.DR. PO SCH (08:17)
[2018-07-28] MEDS: FLUTICASONE 50MCG/NASAL SPRAY 16GM BOTTLE. NS SCH (08:18)
[2018-07-28] MEDS: ALBUTEROL SULFATE 2.5 MG/3 ML NEBU. NEB PRN ×2 (11:15)
[2018-07-28] MEDS ORDERED: IBUPROFEN 400 MG TABLET. PO PRN (11:15)
--- NOTE | 2018-07-28 11:56 | PDOC ---
[facility] PROGRESS NOTE Chief Complaint Chief Complaint Respiratory failure End stage COPD CHF Debility Multiple comorbidities History of Present Illness History of Present Illness [id number] Patient seen and examined twice this morning After examining the first time he then fell He is now having a panic attack I asked respiratory therapy to get him another breathing treatment although he just had one an hour ago He is wheezing He is panicky He short of breath Complains of pain Discussed with his RN's and the rest the healthcare team I plan to consult palliative care tomorrow Patient seen and examined this morning He is sitting up in the chair watching TV on his phone Appears very debilitated depressed week short of breath probably needs hospice Discussed with the healthcare team Reviewed the notes in the chart Vitals Vitals Vital Signs Date Time Temp Pulse Resp B/P (MAP) Pulse Ox O2 Delivery O2 Flow Rate FiO2 07/28/18 11:22 Nasal Cannula 3.0 07/28/18 11:15 96 07/28/18 11:00 98.5 107 18 109/80 (90) 98.5 Physical Exam General: Alert, Oriented X3, moderate distress, Other (anxious short of breath and complaining of pain) Heart: Regular rate, Normal S1 Lungs: Wheezing, Crackles Abdomen: Normal bowel sounds, Other Extremities: No clubbing, No cyanosis Skin: No rashes, No breakdown Assessment and Plan Assessmemt and Plan Problems Medical Problems: (1) Chronic back pain Status: Acute (2) COPD with exacerbation Status: Acute Respiratory failure End stage COPD CHF Debility Multiple comorbidities Plan Schedule duo nebs Plus minus steroids per pulmonary Oxygen therapy Home meds PT OT if possible When necessary narcotics and/or ibuprofen Long-term prognosis appears terminal I think he qualifies for hospice at this point We'll consult palate care Comment Review of Relevant I have reviewed the following items franki (where applicable) has been applied. Labs Laboratory Tests Test 07/26/18 16:52 Urine Collection Type Unknown Urine Color Yellow Urine Clarity Clear Urine pH 6.5 Urine Specific [place] 1.010 Urine Protein Negative mg/dL (NEG-TRACE) Urine Glucose (UA) Negative mg/dL (NEG) Urine Ketones (Stick) Negative mg/dL (NEG) Urine Blood Negative (NEG) Urine Nitrite Negative (NEG) Urine Bilirubin Negative (NEG) Urine Urobilinogen Dipstick 1.0 mg/dL (0.2 mg/dL) Urine Leukocyte Esterase Negative (NEG) Urine RBC 0 /HPF (0-2) Urine WBC 0 /HPF (0-4) Urine Squamous Epithelial Cells Few /LPF Urine Bacteria Few /HPF (0-FEW) Medications Current Medications Dexamethasone (Decadron) 10 mg 1X ONCE PO Last administered on 07/26/18 02:56; Start 07/26/18 at 02:45; Stop 07/26/18 at 02:46; Status DC Lorazepam (Ativan Inj) 1 mg 1X ONCE IV Last administered on 07/26/18at 02:55; Start 07/26/18 at 02:45; Stop 07/26/18 at 02:46; Status DC Albuterol/ Ipratropium (Duoneb) 3 ml 1X ONCE NEB Last administered on 07/26/18 04:09; Start 07/26/18 at 04:00; Stop 07/26/18 at 04:01; Status DC Orphenadrine Citrate (Norflex) 60 mg 1X ONCE IV Last administered on 07/26/18at 05:28; Start 07/26/18 at 05:00; Stop 07/26/18 at 05:01; Status DC Ondansetron HCl (Zofran) 4 mg PRN Q8HRS PRN IV NAUSEA/VOMITING Last administered on 07/27/18at 00:11; Start 07/26/18 at 05:00; Stop 07/27/18 at 04:59; Status DC Albuterol Sulfate (Ventolin Neb Soln) 2.5 mg PRN Q4HRS PRN NEB SHORTNESS OF BREATH Last administered on 07/28/18at 11:15; Start 07/26/18 at 09:00 Atorvastatin Calcium (Lipitor) 10 mg HS PO Last administered on 07/27/18at 21:18; Start 07/26/18 at 21:00 Furosemide (Lasix) 40 mg DAILY PO Last administered on 07/28/18 08:17; Start 07/26/18 at 09:00 Guaifenesin (Robitussin) 200 mg PRN Q4HRS PRN PO COUGH Last administered on 07/27/18 23:20; Start 07/26/18 at 09:00 Lorazepam (Ativan) 1 mg PRN BID PRN PO ANXIETY / AGITATION; Start 07/26/18 at 09:00 Metoclopramide HCl (Reglan) 5 mg QID PO Last administered on 07/28/18 08:17; Start 07/26/18 at 09:00 Albuterol Sulfate (Ventolin Neb Soln) 2.5 mg Q4HRS NEB Last administered on 07/27/18 07:37; Start 07/26/18 at 12:00; Stop 07/27/18 at 07:44; Status DC Budesonide (Pulmicort) 0.5 mg RTBID NEB Last administered on 07/28/18at 05:12; Start 07/26/18 at 09:30 Vitamin D (Vitamin D3) 5,000 unit DAILY PO Last administered on 07/28/18 08:15; Start 07/26/18 at 09:30 Pantoprazole Sodium (Protonix) 40 mg DAILYAC PO Last administered on 07/28/18 08:17; Start 07/26/18 at 09:30 Potassium Chloride (Klor-Con) 20 meq DAILYWBKFT PO Last administered on 07/28/18 08:16; Start 07/26/18 at 09:30 Rivaroxaban (Xarelto) 20 mg DAILYWSUP PO ; Start 07/26/18 at 17:00; Stop 07/26/18 at 17:00; Status DC Tramadol HCl (Ultram) 50 mg PRN Q6HRS PRN PO MILD TO MODERATE PAIN Last administered on 07/28/18 11:22; Start 07/26/18 at 09:15 Rivaroxaban (Xarelto) 20 mg DAILY PO Last administered on 07/28/18 08:17; Start 07/26/18 at 11:00 Info (Anti-Coagulation Monitoring By Pharmacy) 1 each PRN DAILY PRN MC SEE COMMENTS Last administered on 07/27/18 12:37; Start 07/26/18 at 14:30 Albuterol/ Ipratropium (Duoneb) 3 ml RTQID NEB Last administered on 07/28/18at 10:02; Start 07/27/18 at 08:00 Oxycodone HCl (Roxicodone) 5 mg PRN Q4HRS PRN PO SEVERE PAIN Last administered on 07/28/18 08:18; Start 07/27/18 at 16:15 Fluticasone Propionate (Flonase) 2 spray DAILY NS Last administered on 07/28/18at 08:18; Start 07/28/18 at 09:00 Prednisone (Prednisone) 40 mg DAILY PO Last administered on 07/28/18at 08:17; Start 07/28/18 at 09:00 Lorazepam (Ativan Inj) 1 mg 1X ONCE IV Last administered on 07/28/18at 11:21; Start 07/28/18 at 11:30; Stop 07/28/18 at 11:31; Status DC Ibuprofen (Motrin) 400 mg PRN Q8HRS PRN PO INFLAMMATION Last administered on 07/28/18at 11:22; Start 07/28/18 at 11:15 Active Scripts Active Tramadol Hcl 50 Mg Tablet 50 Mg PO PRN Q6HRS PRN 6 Days Ativan (Lorazepam) 1 Mg Tablet 1 Mg PO PRN BID PRN 6 Days Xarelto (Rivaroxaban) 20 Mg Tablet 20 Mg PO DAILY 30 Days START on 07/20/2018 Guaifenesin 100 Mg/5 Ml Liquid 200 Mg PO PRN Q4HRS PRN 30 Days Tylenol (Acetaminophen) 325 Mg Tablet 650 Mg PO PRN Q4HRS PRN 10 Days Ventolin Hfa Inhaler (Albuterol Sulfate) 18 Gm Hfa.aer.ad 2 Puff INH Q4HRS Reglan (Metoclopramide Hcl) 10 Mg Tablet 0.5 Tab PO QID 30 Days Albuterol Sulfate Neb Soln (Albuterol Sulfate) 2.5 Mg/3 Ml Vial.neb 1 Vial NEB PRN Q4HRS Reported Furosemide 40 Mg Tablet 1 Tab PO DAILY Vitamin D3 (Cholecalciferol (Vitamin D3)) 5,000 Unit Tablet 5,000 Unit PO DAILY Potassium Chloride 20 Meq Tablet.er 20 Meq PO DAILY Protonix (Pantoprazole Sodium) 20 Mg Tablet.dr 1 Tab PO DAILY Atorvastatin Calcium 10 Mg Tablet 10 Mg PO HS Symbicort 160-4.5 Mcg Inhaler (Budesonide/Formoterol Fumarate) 10.2 Gm Hfa.aer.ad 2 Puff IH BID Vitals/I & O Vital Sign - Last 24 Hours 07/27/18 07/27/18 07/27/18 07/27/18 15:00 16:02 16:12 19:00 Temp 98.7 99.2 98.7 99.2 Pulse 109 58 Resp 17 20 B/P (MAP) 100/66 (77) 98/68 (78) Pulse Ox 98 100 97 O2 Delivery Nasal Cannula Nasal Cannula Nasal Cannula Nasal Cannula O2 Flow Rate 3.0 3.0 3.0 07/27/18 07/27/18 07/27/18 07/28/18 19:27 20:00 23:04 00:00 Temp 99.3 99.3 Pulse 110 Resp 20 B/P (MAP) 94/66 (75) Pulse Ox 100 96 100 O2 Delivery Nasal Cannula Nasal Cannula Nasal Cannula Nasal Cannula O2 Flow Rate 3.0 3.0 3.0 07/28/18 07/28/18 07/28/18 07/28/18 01:51 03:05 05:12 07:00 Temp 98.9 98.8 98.9 98.8 Pulse 114 111 Resp 20 18 B/P (MAP) 119/69 (86) 107/74 (85) Pulse Ox 96 97 100 95 O2 Delivery Nasal Cannula Nasal Cannula Nasal Cannula Nasal Cannula O2 Flow Rate 3.0 3.0 07/28/18 07/28/18 07/28/18 07/28/18 07:45 08:18 09:30 10:02 Pulse Ox 98 O2 Delivery Nasal Cannula Nasal Cannula Nasal Cannula Nasal Cannula O2 Flow Rate 3.0 3.0 3.0 3.0 07/28/18 07/28/18 07/28/18 11:00 11:15 11:22 Temp 98.5 98.5 Pulse 107 Resp 18 B/P (MAP) 109/80 (90) Pulse Ox 94 96 O2 Delivery Nasal Cannula Nasal Cannula Nasal Cannula O2 Flow Rate 3.0 3.0 Intake and Output 07/27/18 07/27/18 07/28/18 14:59 22:59 06:59 Intake Total 220 ml 110 ml Output Total 150 ml 700 ml Balance 220 ml -40 ml -700 ml TAMMY MARKS III DO Jul 28, 2018 11:56
[2018-07-28] MEDS: ANTI-COAG MONITOR BY PHARMACY. MC PRN (12:27)
--- NOTE | 2018-07-28 15:55 | NUR ---
Patient fell at around 1105. patient stated he couldn't breath, SERGEY Tavarez walking into room when patient fell. Patient immediately got up himself. Patient stating he was having a panic attack. Patients vitals obtained see records. Paged Dr. Hathaway orders for ativan IV, duo-neb, and fall risk precautions. Patient calmed down after the ativan and was able to sleep for a few hours afterwards. Will continue to monitor patient.
[2018-07-28] MEDS: ATORVASTATIN CALCIUM 10 MG TABLET. PO SCH (22:08)
[2018-07-29] MEDS: traMADol 50 MG TABLET PO PRN (01:45)
[2018-07-29 03:12] VITALS: BP 145/79
[2018-07-29 07:00] VITALS: BP 104/82
[2018-07-29] MEDS: BUDESONIDE 0.5 MG/2 ML NEBU. NEB SCH (07:22)
[2018-07-29] MEDS: IPRATRPIUM/ALBUTEROL 0.5/2.5MG 3 ML NEBU. NEB SCH ×3 (07:22→15:14)
[2018-07-29] MEDS: PANTOPRAZOLE 40 MG TABLET.DR. PO SCH (07:50)
[2018-07-29] MEDS: RIVAROXABAN 10 MG TABLET. PO SCH (07:50)
[2018-07-29] MEDS: POTASSIUM CHLORIDE 20 MEQ TABLET.ER. PO SCH (07:50)
[2018-07-29] MEDS: METOCLOPRAMIDE 10 MG TABLET. PO SCH ×3 (07:50→16:38)
[2018-07-29] MEDS: CHOLECALCIFEROL (VITAMIN D3) 5,000 UNIT CAPSULE PO SCH (07:50)
[2018-07-29] MEDS: predniSONE 20 MG TABLET PO SCH (07:50)
[2018-07-29] MEDS: FUROSEMIDE 40 MG TABLET. PO SCH (07:51)
--- NOTE | 2018-07-29 08:54 | PDOC ---
PULMONARY PROGRESS NOTES Subjective PT FEELS BETTER LESS SOA Vitals Vital Signs Date Time Temp Pulse Resp B/P (MAP) Pulse Ox O2 Delivery O2 Flow Rate FiO2 07/29/18 07:22 100 Nasal Cannula 3.0 07/29/18 07:00 98.3 100 14 104/82 (89) 98.3 ROS: No Nausea General: Alert, No acute distress Lungs: Wheezing, Crackles Cardiovascular: S1, S2 Abdomen: Soft, Non-tender Neuro Exam: Alert Extremities: No Edema, Other Skin: Warm Medications Active Scripts Medications Dose Route/Sig Max Daily Dose Days Date Category Dose Instructions Tramadol Hcl 50 Mg Tablet 50 Mg PO PRN Q6HRS PRN 6 07/12/18 Rx Ativan (Lorazepam) 1 Mg Tablet 1 Mg PO PRN BID PRN 6 07/12/18 Rx Xarelto (Rivaroxaban) 20 Mg Tablet 20 Mg PO DAILY 30 07/12/18 Rx START on 07/20/2018 Furosemide 40 Mg Tablet 1 Tab PO DAILY 06/20/18 Reported Guaifenesin 100 Mg/5 Ml Liquid 200 Mg PO PRN Q4HRS PRN 30 05/30/18 Rx Tylenol (Acetaminophen) 325 Mg Tablet 650 Mg PO PRN Q4HRS PRN 10 05/30/18 Rx Ventolin Hfa Inhaler (Albuterol Sulfate) 18 Gm Hfa.aer.ad 2 Puff INH Q4HRS 05/10/18 Rx Vitamin D3 (Cholecalciferol (Vitamin D3)) 5,000 Unit Tablet 5,000 Unit PO DAILY 03/15/18 Reported Reglan (Metoclopramide Hcl) 10 Mg Tablet 0.5 Tab PO QID 30 02/14/18 Rx Potassium Chloride 20 Meq Tablet.er 20 Meq PO DAILY 01/13/18 Reported Protonix (Pantoprazole Sodium) 20 Mg Tablet.dr 1 Tab PO DAILY 11/18/17 Reported Atorvastatin Calcium 10 Mg Tablet 10 Mg PO HS 08/21/17 Reported Albuterol Sulfate Neb Soln (Albuterol Sulfate) 2.5 Mg/3 Ml Vial.neb 1 Vial NEB PRN Q4HRS 07/10/17 Rx Symbicort 160-4.5 Mcg Inhaler (Budesonide/Formoterol Fumarate) 10.2 Gm Hfa.aer.ad 2 Puff IH BID 09/21/15 Reported Impression . IMPRESSION: 1. Acute exacerbation of chronic obstructive pulmonary disease. 2. Rgmii-[id number] hypoxemic respiratory failure. 3. Fpeki-[id number] cor pulmonale. 4. History of pulmonary embolism. DX IN JUNE 2918 5. Large bullae on the left. 6. Hyperlipidemia. 7. Hypertension. 8. Tobacco dependence, in remission. Plan . D/C HOME RX FOR PRED/ATIVAN .5 MG #60 FOLLOW UP IN OFFICE XARELTO TILL DEC CLEARED TO START PULM REHAB SCOTT COOK MD Jul 29, 2018 08:54
[2018-07-29] MEDS: FLUTICASONE 50MCG/NASAL SPRAY 16GM BOTTLE. NS SCH (09:00)
--- NOTE | 2018-07-29 10:12 | PDOC2 ---
PALLIATIVE CARE Palliative Care Note Palliative Care Patient alert. Sitting in bed. Spoke with Ely--sister. Family Meeting tomorrow at 11am. 1145 Spoke with Samson JAMES. Patient has discharge order. Refused to go to SNU. Wants to go home to his sister's home where he has been staying and helping with the children. Spoke with sister-- Ely. She will support his wishes. Discussed Palliative Home Health and hospice. 1245; Spoke with patient. Reviewed his goals. He understands he has only ??10 days of acute care days remaining on his insurance. States he tries to stay out of the hospital as long as he can---waits until the last minute to come to the hospital. He is to start pulmonary Rehab next week. Wants to go home and be able to participate in family activities as much as possible. Discussed Palliative Home Health and Hospice. He would like more information on Palliative Home Health. Has no preference of agencies but need someone that serves both [place] and [place]. Will contact [facility] for home visit. Discussed Code Status; wants remain Full code. Spoke with Precious RINCON and Samson JAMES and updated. LAXMI LOBATO Jul 29, 2018 10:12
--- NOTE | 2018-07-29 10:49 | SNU/HH DC ---
DISCHARGE ORDERS DISCHARGE INFORMATION: DISCHARGE DATE: Jul 29, 2018 FINAL DIAGNOSIS Problems Medical Problems: (1) Chronic back pain Status: Acute (2) COPD with exacerbation Status: Acute CONDITION ON DISCHARGE: Stable CODE STATUS: Code Status: Full GROUP HOME: SNF STAY <30 DAYS: Yes HOSPICE: HOSPICE: No HOSPICE EVAL & TREAT: No LTAC: ADMIT TO LTAC: No POST DISCHARGE ORDERS: ACTIVITY ORDERS: Activity as tolerated, Bedrest today WEIGHT BEARING STATUS: Full weight bearing DIET AFTER DISCHARGE: Cardiac WOUND/INCISION CARE: No wound care needed CHECKS AFTER DISCHARGE: CHECKS AFTER DISCHARGE: Check blood sugar, ac/hs FOLLOW-UP: PHYSICIAN FOLLOW-UP: Dr. Crook as requested- start pulmonary rehab- call [phone] for appt ADDITIONAL FOLLOW-UP: Primary Care Physician in 1-2 weeks or as needed. TREATMENT/EQUIPMENT ORDERS: ADAPTIVE EQUIPMENT NEEDED: None RESPIRATORY EQUIPMENT NEEDED: Oxygen Physical Therapy For: Evalulation/Treatment Occupational Therapy For: Evaluation/Treatment Speech Language Pathology For: Evaluation/Treatment DISCHARGE MEDICATIONS: Home Meds Active Scripts Tramadol Hcl (TRAMADOL HCL) 50 Mg Tablet, 50 MG PO PRN Q6HRS PRN for PAIN for 6 Days, #24 TAB Prov:KIRSTIE TREVINO MD 07/12/18 Lorazepam (ATIVAN) 1 Mg Tablet, 1 MG PO PRN BID PRN for ANXIETY / AGITATION for 6 Days, #12 TAB Prov:KIRSTIE TREVINO MD 07/12/18 Rivaroxaban (XARELTO) 20 Mg Tablet, 20 MG PO DAILY for PE for 30 Days, #30 TAB START on 07/20/2018 Prov:KIRSTIE TREVINO MD 07/12/18 Guaifenesin (GUAIFENESIN) 100 Mg/5 Ml Liquid, 200 MG PO PRN Q4HRS PRN for COUGH for 30 Days, #120 LIQUID Prov:TOMAS BAIG MD 05/30/18 Acetaminophen (TYLENOL) 325 Mg Tablet, 650 MG PO PRN Q4HRS PRN for TEMP OVER 100.4F OR MILD PAIN for 10 Days, #30 TAB Prov:TOMAS BAIG MD 05/30/18 Albuterol Sulfate (VENTOLIN HFA INHALER) 18 Gm Hfa.aer.ad, 2 PUFF INH Q4HRS for FOR ASTHMA, #1 INHALER 0 Refills Prov:SD JON APRN 05/10/18 Metoclopramide Hcl (REGLAN) 10 Mg Tablet, 0.5 TAB PO QID for gerd for 30 Days, #60 TAB Prov:TOMAS BAIG MD 02/14/18 Albuterol Sulfate (ALBUTEROL SULFATE NEB SOLN) 2.5 Mg/3 Ml Vial.neb, 1 VIAL NEB PRN Q4HRS, #50 VIAL Prov:TEVIN GOODWIN MD 07/10/17 Reported Medications Furosemide (FUROSEMIDE) 40 Mg Tablet, 1 TAB PO DAILY for water, #30 TAB 5 Refills 06/20/18 Cholecalciferol (Vitamin D3) (VITAMIN D3) 5,000 Unit Tablet, 5000 UNIT PO DAILY for supplement, TAB 03/15/18 Potassium Chloride (POTASSIUM CHLORIDE) 20 Meq Tablet.er, 20 MEQ PO DAILY for supplement, TAB.SR 01/13/18 Pantoprazole Sodium (PROTONIX) 20 Mg Tablet.dr, 1 TAB PO DAILY, #30 TAB 11/18/17 Atorvastatin Calcium (ATORVASTATIN CALCIUM) 10 Mg Tablet, 10 MG PO HS for FOR CHOLESTEROL, #30 TAB 0 Refills 08/21/17 Budesonide/Formoterol Fumarate (SYMBICORT 160-4.5 MCG INHALER) 10.2 Gm Hfa.aer.ad, 2 PUFF IH BID, #10.6 GM 3 Refills 09/21/15 TAMMY MARKS III DO Jul 29, 2018 10:49
--- NOTE | 2018-07-29 10:52 | PDOC ---
[facility] PROGRESS NOTE Chief Complaint Chief Complaint Respiratory failure End stage COPD CHF Debility Multiple comorbidities History of Present Illness History of Present Illness [id number] Patient seen and examined twice Seems to be at his baseline Plan to discharge [id number] Patient seen and examined twice this morning After examining the first time he then fell He is now having a panic attack I asked respiratory therapy to get him another breathing treatment although he just had one an hour ago He is wheezing He is panicky He short of breath Complains of pain Discussed with his RN's and the rest the healthcare team I plan to consult palliative care tomorrow Patient seen and examined this morning He is sitting up in the chair watching TV on his phone Appears very debilitated depressed week short of breath probably needs hospice Discussed with the healthcare team Reviewed the notes in the chart Vitals Vitals Vital Signs Date Time Temp Pulse Resp B/P (MAP) Pulse Ox O2 Delivery O2 Flow Rate FiO2 07/29/18 07:30 Nasal Cannula 3.0 07/29/18 07:22 100 07/29/18 07:00 98.3 100 14 104/82 (89) 98.3 Physical Exam General: Alert, Oriented X3, No acute distress, Other (anxious short of breath and complaining of pain) Heart: Regular rate, Normal S1 Lungs: Clear, Crackles Abdomen: Normal bowel sounds, Other Extremities: No clubbing, No cyanosis Skin: No rashes, No breakdown Assessment and Plan Assessmemt and Plan Problems Medical Problems: (1) Chronic back pain Status: Acute (2) COPD with exacerbation Status: Acute Respiratory failure End stage COPD CHF Debility Multiple comorbidities Plan Discharge to snf see discharge sheet Comment Review of Relevant I have reviewed the following items franki (where applicable) has been applied. Medications Current Medications Dexamethasone (Decadron) 10 mg 1X ONCE PO Last administered on 07/26/18at 02:56; Start 07/26/18 at 02:45; Stop 07/26/18 at 02:46; Status DC Lorazepam (Ativan Inj) 1 mg 1X ONCE IV Last administered on 07/26/18at 02:55; Start 07/26/18 at 02:45; Stop 07/26/18 at 02:46; Status DC Albuterol/ Ipratropium (Duoneb) 3 ml 1X ONCE NEB Last administered on 07/26/18at 04:09; Start 07/26/18 at 04:00; Stop 07/26/18 at 04:01; Status DC Orphenadrine Citrate (Norflex) 60 mg 1X ONCE IV Last administered on 07/26/18at 05:28; Start 07/26/18 at 05:00; Stop 07/26/18 at 05:01; Status DC Ondansetron HCl (Zofran) 4 mg PRN Q8HRS PRN IV NAUSEA/VOMITING Last administered on 07/27/18at 00:11; Start 07/26/18 at 05:00; Stop 07/27/18 at 04:59; Status DC Albuterol Sulfate (Ventolin Neb Soln) 2.5 mg PRN Q4HRS PRN NEB SHORTNESS OF BREATH Last administered on 07/28/18 11:15; Start 07/26/18 at 09:00 Atorvastatin Calcium (Lipitor) 10 mg HS PO Last administered on 07/28/18 22:08; Start 07/26/18 at 21:00 Furosemide (Lasix) 40 mg DAILY PO Last administered on 07/29/18at 07:51; Start 07/26/18 at 09:00 Guaifenesin (Robitussin) 200 mg PRN Q4HRS PRN PO COUGH Last administered on 07/27/18 23:20; Start 07/26/18 at 09:00 Lorazepam (Ativan) 1 mg PRN BID PRN PO ANXIETY / AGITATION; Start 07/26/18 at 09:00 Metoclopramide HCl (Reglan) 5 mg QID PO Last administered on 07/29/18at 07:50; Start 07/26/18 at 09:00 Albuterol Sulfate (Ventolin Neb Soln) 2.5 mg Q4HRS NEB Last administered on 07/27/18at 07:37; Start 07/26/18 at 12:00; Stop 07/27/18 at 07:44; Status DC Budesonide (Pulmicort) 0.5 mg RTBID NEB Last administered on 07/29/18 07:22; Start 07/26/18 at 09:30 Vitamin D (Vitamin D3) 5,000 unit DAILY PO Last administered on 07/29/18at 07:50; Start 07/26/18 at 09:30 Pantoprazole Sodium (Protonix) 40 mg DAILYAC PO Last administered on 07/29/18 07:50; Start 07/26/18 at 09:30 Potassium Chloride (Klor-Con) 20 meq DAILYWBKFT PO Last administered on 07/29/18 07:50; Start 07/26/18 at 09:30 Rivaroxaban (Xarelto) 20 mg DAILYWSUP PO ; Start 07/26/18 at 17:00; Stop 07/26/18 at 17:00; Status DC Tramadol HCl (Ultram) 50 mg PRN Q6HRS PRN PO MILD TO MODERATE PAIN Last administered on 07/29/18 01:45; Start 07/26/18 at 09:15 Rivaroxaban (Xarelto) 20 mg DAILY PO Last administered on 07/29/18 07:50; Start 07/26/18 at 11:00 Info (Anti-Coagulation Monitoring By Pharmacy) 1 each PRN DAILY PRN MC SEE COMMENTS Last administered on 07/28/18 12:27; Start 07/26/18 at 14:30 Albuterol/ Ipratropium (Duoneb) 3 ml RTQID NEB Last administered on 07/29/18 0 7:22; Start 07/27/18 at 08:00 Oxycodone HCl (Roxicodone) 5 mg PRN Q4HRS PRN PO SEVERE PAIN Last administered on 07/28/18 08:18; Start 07/27/18 at 16:15 Fluticasone Propionate (Flonase) 2 spray DAILY NS Last administered on 07/28/18 08:18; Start 07/28/18 at 09:00 Prednisone (Prednisone) 40 mg DAILY PO Last administered on 07/29/18 07:50; Start 07/28/18 at 09:00 Lorazepam (Ativan Inj) 1 mg 1X ONCE IV Last administered on 07/28/18 11:21; Start 07/28/18 at 11:30; Stop 07/28/18 at 11:31; Status DC Ibuprofen (Motrin) 400 mg PRN Q8HRS PRN PO INFLAMMATION Last administered on 07/28/18 11:22; Start 07/28/18 at 11:15 Active Scripts Active Tramadol Hcl 50 Mg Tablet 50 Mg PO PRN Q6HRS PRN 6 Days Ativan (Lorazepam) 1 Mg Tablet 1 Mg PO PRN BID PRN 6 Days Xarelto (Rivaroxaban) 20 Mg Tablet 20 Mg PO DAILY 30 Days START on 07/20/2018 Guaifenesin 100 Mg/5 Ml Liquid 200 Mg PO PRN Q4HRS PRN 30 Days Tylenol (Acetaminophen) 325 Mg Tablet 650 Mg PO PRN Q4HRS PRN 10 Days Ventolin Hfa Inhaler (Albuterol Sulfate) 18 Gm Hfa.aer.ad 2 Puff INH Q4HRS Reglan (Metoclopramide Hcl) 10 Mg Tablet 0.5 Tab PO QID 30 Days Albuterol Sulfate Neb Soln (Albuterol Sulfate) 2.5 Mg/3 Ml Vial.neb 1 Vial NEB PRN Q4HRS Reported Furosemide 40 Mg Tablet 1 Tab PO DAILY Vitamin D3 (Cholecalciferol (Vitamin D3)) 5,000 Unit Tablet 5,000 Unit PO DAILY Potassium Chloride 20 Meq Tablet.er 20 Meq PO DAILY Protonix (Pantoprazole Sodium) 20 Mg Tablet.dr 1 Tab PO DAILY Atorvastatin Calcium 10 Mg Tablet 10 Mg PO HS Symbicort 160-4.5 Mcg Inhaler (Budesonide/Formoterol Fumarate) 10.2 Gm Hfa.aer.ad 2 Puff IH BID Vitals/I & O Vital Sign - Last 24 Hours 07/28/18 07/28/18 07/28/18 07/28/18 11:00 11:05 11:15 11:20 Temp 98.5 98.5 Pulse 107 131 112 Resp 18 25 25 B/P (MAP) 109/80 (90) 157/107 (124) 141/77 (98) Pulse Ox 94 100 96 94 O2 Delivery Nasal Cannula Nasal Cannula Nasal Cannula Nasal Cannula O2 Flow Rate 3.0 3.0 3.0 07/28/18 07/28/18 07/28/18 07/28/18 11:22 11:35 11:50 12:30 Pulse 119 109 Resp 22 20 B/P (MAP) 130/86 (101) 121/94 (103) Pulse Ox 93 97 O2 Delivery Nasal Cannula Nasal Cannula Nasal Cannula O2 Flow Rate 3.0 3.0 3.0 3.0 07/28/18 07/28/18 07/28/18 07/28/18 14:43 19:00 20:00 20:13 Temp 98.0 98.0 Pulse 95 Resp 20 B/P (MAP) 129/81 (97) Pulse Ox 98 98 100 O2 Delivery Nasal Cannula Nasal Cannula Nasal Cannula Nasal Cannula O2 Flow Rate 3.0 3.0 3.0 07/28/18 07/28/18 07/29/18 07/29/18 20:13 23:00 03:12 07:00 Temp 98.3 98.5 98.3 98.3 98.5 98.3 Pulse 95 105 100 Resp 20 20 14 B/P (MAP) 134/93 (107) 145/79 (101) 104/82 (89) Pulse Ox 100 99 100 100 O2 Delivery Nasal Cannula Nasal Cannula Nasal Cannula Nasal Cannula O2 Flow Rate 3.0 3.0 07/29/18 07/29/18 07:22 07:30 Pulse Ox 100 O2 Delivery Nasal Cannula Nasal Cannula O2 Flow Rate 3.0 3.0 Intake and Output 07/28/18 07/28/18 07/29/18 14:59 22:59 06:59 Intake Total 300 ml 180 ml Output Total 2 ml 3 ml 450 ml Balance 298 ml 177 ml -450 ml TAMMY MARKS III DO Jul 29, 2018 10:52
[2018-07-29 11:00] VITALS: BP 124/84
--- NOTE | 2018-07-29 11:15 | NUR ---
JACOB following pt. SW discussed with Pt if he had conversation with Physician regarding going to SNU today and pt reported he did not know he was discharging and informed JACOB, his sister had a meeting with Palliative care nurse tomorrow at 1100. JACOB informed pt there is a dc order for today and he could either go to SNU or home with home health. Pt stated he does not want to go to SNU and wants to go home instead. JACOB spoke with Pat from Palliative care and she will meet with pt again today prior dc. Discussed with RN.
[2018-07-29] MEDS: oxyCODONE IR 5 MG TABLET PO PRN (13:16)
--- NOTE | 2018-07-29 13:53 | NUR ---
Discussed with Palliative care and pt is agreeable with [facility]. SW phoned and faxed orders. Awaiting to hear back if they are able to accept pt. Will continue to follow.
[2018-07-29 15:00] VITALS: BP 108/80
--- NOTE | 2018-07-29 15:12 | NUR ---
JACOB following pt. Orders faxed to [facility]. Patricia from [facility] reported she will reach out to pt tonight or tomorrow morning. RN notified. Addendum: 07/29/18 at 1514 by PADMINI JAMES Pt provided with both agencies contact info and agreeable with plans.
--- NOTE | 2018-07-29 17:20 | NUR ---
Discharge Note: DESTINY JONES [place] Discharge instructions and discharge home medications reviewed with Patient and a copy given. All questions have been answered and understanding verbalized. The following instructions and handouts were given: discharge instructions, new prescriptions, education and follow up recommendations. Discontinued lines and drains: Peripheral IV discontinued intact. Patient discharged to Home or Self Care with Family Member via Wheelchair off unit by BUILDING CODE INSPECTOR.
== END 2018-07-29 17:22 | disposition home health service (06) | DRG 291 ==
LOC: ER 02:30 → 5 NORTH 05:02
PROVIDERS: ADMIT Internal Medicine; ATTEND Internal Medicine
DX: I13.0 Hypertensive heart and chronic kidney disease with heart failure and stage 1 through stage 4 chronic kidney disease, or unspecified chronic kidney disease (principal); I26.09 Other pulmonary embolism with acute cor pulmonale; J96.21 Acute and chronic respiratory failure with hypoxia; I50.43 Acute on chronic combined systolic (congestive) and diastolic (congestive) heart failure; N17.9 Acute kidney failure, unspecified; E78.00 Pure hypercholesterolemia, unspecified; E78.5 Hyperlipidemia, unspecified; E87.6 Hypokalemia; J43.9 Emphysema, unspecified; G89.29 Other chronic pain; F32.9 Major depressive disorder, single episode, unspecified; F41.0 Panic disorder [episodic paroxysmal anxiety]; F17.201 Nicotine dependence, unspecified, in remission; I50.82 Biventricular heart failure; J20.9 Acute bronchitis, unspecified; N18.9 Chronic kidney disease, unspecified; R13.10 Dysphagia, unspecified; Y95 Nosocomial condition; Z86.711 Personal history of pulmonary embolism; Z79.899 Other long term (current) drug therapy; Z82.49 Family history of ischemic heart disease and other diseases of the circulatory system; Z88.8 Allergy status to other drugs, medicaments and biological substances
CPT/HCPCS: 36415; 36600; 71046; 80053; 81001; 82553; 82805; 83605; 83690; 83735; 83880; 84484; 85007; 85025; 85610; 85730; 93005; 94640; 94760; 96374; 96375; J2060; J2360; J2405; J7512; J7613; J7620; J7626; J8540; J8597; 99285-25

== ENCOUNTER 2018-08-19 23:23 | Emergency (ER) | payer MEDICARE, MEDICAID ==
[~2018-08-19] VITALS: Ht 165.1 cm; Wt 68.9 kg
[~2018-08-19 23:23] MED LIST changes: +PRED2.5T PO; +TRAM1TAB4 PO
[2018-08-19] MEDS ORDERED: ALBUTEROL SULFATE 2.5 MG/3 ML NEBU. NEB ONE (23:45)
[2018-08-20 00:59] VITALS: BP 117/78
[2018-08-20] MEDS ORDERED: ALBUTEROL SULFATE 2.5 MG/3 ML NEBU. NEB ONE (01:00)
[2018-08-20] MEDS ORDERED: oxyCODONE IR 5 MG TABLET PO ONE (01:00)
[2018-08-20] MEDS ORDERED: CYCL5TAB PO (02:19)
--- NOTE | 2018-08-20 02:47 | PHYS DOC ---
Past Medical History Past Medical History: Bronchitis, CHF, COPD, High Cholesterol, Heart Disease, Hypertension, Other Additional Past Medical Histor: EMPHYSEMA-on 3 L NC, "prediabetes", mdd,PE Past Surgical History: Other Additional Past Surgical Histo: HERNIA REPAIR Alcohol Use: None Drug Use: None Adult General Chief Complaint Chief Complaint: SHORTNESS OF BREATH HPI HPI Patient is a 58 year oldm p/w sob not too bad he tells me but he wanted to come in before it got worse. he took extra prednisone today. he is on prophylactic abx daily. no fever coughing but pretty typical for him. he doesn't feel as bad as when he was here last time Review of Systems Review of Systems Constitutional: Denies fever or chills [] Eyes: Denies change in visual acuity, redness, or eye pain [] HENT: Denies nasal congestion or sore throat [] Respiratory: Denies cough or shortness of breath [] Cardiovascular: No additional information not addressed in HPI [] GI: Denies abdominal pain, nausea, vomiting, bloody stools or diarrhea [] : Denies dysuria or hematuria [] Musculoskeletal: Denies back pain or joint pain [] Integument: Denies rash or skin lesions [] Neurologic: Denies headache, focal weakness or sensory changes [] Endocrine: Denies polyuria or polydipsia [] All other systems were reviewed and found to be within normal limits, except as documented in this note. Current Medications Current Medications Current Medications Medications (Trade) Dose Ordered Sig/Candy Start Time Stop Time Status Last Admin Dose Admin Albuterol Sulfate (Ventolin Neb Soln) 2.5 mg 1X ONCE 08/20/18 01:00 08/20/18 01:01 DC 08/20/18 00:45 2.5 MG Oxycodone HCl (Roxicodone) 10 mg 1X ONCE 08/20/18 01:00 08/20/18 01:01 DC 08/20/18 00:59 10 MG Allergies Allergies Allergies Coded Allergies Type Severity Reaction Last Updated Verified acetaminophen Allergy Intermediate TAKES NORCO AT HOME 01/29/18 Yes Physical Exam Physical Exam Constitutional: Well developed, well nourished, no acute distress, non-toxic appearance. [] HENT: Normocephalic, atraumatic, bilateral external ears normal, oropharynx moist, no oral exudates, nose normal. [] Eyes: PERRLA, EOMI, conjunctiva normal, no discharge. [] Neck: Normal range of motion, no tenderness, supple, no stridor. [] Cardiovascular:Heart rate regular rhythm, no murmur [] Lungs & Thorax:decreased bibasilar breath sounds prolonged expiratory phase Abdomen: Bowel sounds normal, soft, no tenderness, no masses, no pulsatile masses. [] Skin: Warm, dry, no erythema, no rash. [] Back: No tenderness, no CVA tenderness. [] Extremities: No tenderness, no cyanosis, no clubbing, ROM intact, chronic edema. Neurologic: Alert and oriented X 3, normal motor function, normal sensory function, no focal deficits noted. [] Psychologic: Affect normal, judgement normal, mood anxious Current Patient Data Vital Signs Vital Signs Date Time Temp Pulse Resp B/P (MAP) Pulse Ox O2 Delivery O2 Flow Rate FiO2 08/20/18 00:59 91 22 117/78 (91) 99 Room Air 08/20/18 00:45 3.0 08/19/18 23:32 98.0 98.0 Lab Values Laboratory Tests Test 08/19/18 23:40 Glucose (Fingerstick) 185 mg/dL (70-99) H EKG EKG [] Radiology/Procedures Radiology/Procedures [] Impressions: cxr overall probably unchanged. there is bibasilar probably atelectasis Course & Med Decision Making Course & Med Decision Making Pertinent Labs and Imaging studies reviewed. (See chart for details) []pt got two nebs and felt better long standing hx of copd frequent er user well known to me and this dept pt is bascially at baseline even better than seymour seen him before. got nebs was doing better flexeril given for back pain pt reassured, d/c in stable condition. Dragon Disclaimer Dragon Disclaimer This electronic medical record was generated, in whole or in part, using a voice recognition dictation system. Departure Departure Impression: Primary Impression: COPD with exacerbation Disposition: HOME, SELF-CARE Condition: STABLE Referrals: UNKNOWN PCP NAME (PCP) Patient Instructions: Chronic Obstructive Pulmonary Disease Exacerbation Scripts Cyclobenzaprine Hcl (CYCLOBENZAPRINE HCL) 5 Mg Tablet 5 MG PO PRN TID PRN for PAIN, #15 TAB Prov: TEVIN GOODWIN MD 08/20/18 TEVIN GOODWIN MD Aug 20, 2018 02:47
[2018-08-20] MEDS ORDERED: DOXY100T PO (05:32)
--- NOTE | 2018-08-20 06:01 | RAD ---
INDICATION: Shortness of breath COMPARISON: August 04, 2018 FINDINGS: Single view of chest obtained. Repeat demonstration of hyperlucency of the lung parenchyma most severe at the left upper lung where there is very little lung markings again seen. Coarse interstitial opacities at the right greater than left lung base. Cardiac silhouette is enlarged IMPRESSION: 1. Coarse interstitial markings within the right greater than left lung base which could be secondary to atelectasis or infiltrate. Portion of this is likely chronic in nature. 2. Repeat demonstration of hyperlucency most severe at the left upper lung. This can be seen with emphysema. Electronically signed by: Matthew Agee MD (08/20/2018 5:58 AM) [facility]
[2018-08-25] MEDS ORDERED: METH40VI IJ (23:10)
[2018-08-25] MEDS ORDERED: ALBU2.5V5 NEB (23:10)
[2018-08-25] MEDS ORDERED: BUDE0.253 NEB (23:10)
== END 2018-08-20 01:20 | disposition home or self-care (01) ==
LOC: ER 23:23
DX: J44.1 Chronic obstructive pulmonary disease with (acute) exacerbation (principal); E78.00 Pure hypercholesterolemia, unspecified; I11.0 Hypertensive heart disease with heart failure; I50.9 Heart failure, unspecified; Z88.6 Allergy status to analgesic agent
CPT/HCPCS: 71045; 82962; 94640; 99285; J7613

== ENCOUNTER 2018-08-20 05:02 | Emergency (ER) | payer MEDICARE, MEDICAID ==
[~2018-08-20] VITALS: Ht 180.3 cm; Wt 68.9 kg
[2018-08-20 05:16] VITALS: BP 150/87
[2018-08-20] MEDS ORDERED: DOXY100T PO (05:32)
--- NOTE | 2018-08-20 05:53 | PHYS DOC ---
Past Medical History Past Medical History: Bronchitis, CHF, COPD, High Cholesterol, Heart Disease, Hypertension, Other Additional Past Medical Histor: EMPHYSEMA-on 3 L NC, "prediabetes", mdd,PE Past Surgical History: Other Additional Past Surgical Histo: HERNIA REPAIR Alcohol Use: None Drug Use: None Adult General Chief Complaint Chief Complaint: SHORTNESS OF BREATH HPI HPI Patient is a 58 year old male p/w chief complaint of shortness of breath. The patient was seen here a few hours ago he was in the waiting room waiting for a taxi he said he was due for another neb was getting short of breath he checked back into the emergency room for reevaluation. Of note this is a common pattern of behavior for this patient. Review of Systems Review of Systems Constitutional: Denies fever or chills [] Eyes: Denies change in visual acuity, redness, or eye pain [] HENT: Denies nasal congestion or sore throat [] Musculoskeletal: Denies back pain or joint pain [] Integument: Denies rash or skin lesions [] Neurologic: Denies headache, focal weakness or sensory changes [] Endocrine: Denies polyuria or polydipsia [] All other systems were reviewed and found to be within normal limits, except as documented in this note. Current Medications Current Medications Current Medications Medications (Trade) Dose Ordered Sig/Candy Start Time Stop Time Status Last Admin Dose Admin Albuterol Sulfate (Ventolin Neb Soln) 2.5 mg 1X ONCE 08/20/18 06:00 08/20/18 06:01 DC 08/20/18 05:39 2.5 MG Allergies Allergies Allergies Coded Allergies Type Severity Reaction Last Updated Verified acetaminophen Allergy Intermediate TAKES NORCO AT HOME 01/29/18 Yes Physical Exam Physical Exam Constitutional: Well developed, well nourished, no acute distress, non-toxic appearance. [] HENT: Normocephalic, atraumatic, bilateral external ears normal, oropharynx moist, no oral exudates, nose normal. [] Eyes: PERRLA, EOMI, conjunctiva normal, no discharge. [] Neck: Normal range of motion, no tenderness, supple, no stridor. [] Cardiovascular: Mild tachycardia Lungs & Thorax: Mild tachypnea pursed lip breathing patient has distant breath sounds bilaterally this is unchanged exam Abdomen: Bowel sounds normal, soft, no tenderness, no masses, no pulsatile masses. [] Skin: Warm, dry, no erythema, no rash. [] Back: No tenderness, no CVA tenderness. [] Extremities: No tenderness, no cyanosis, no clubbing, ROM intact, no edema. [] Neurologic: Alert and oriented X 3, normal motor function, normal sensory function, no focal deficits noted. [] Current Patient Data Vital Signs Vital Signs Date Time Temp Pulse Resp B/P (MAP) Pulse Ox O2 Delivery O2 Flow Rate FiO2 08/20/18 05:40 99 Nasal Cannula 3.0 08/20/18 05:16 98.2 107 20 150/87 (108) 98.2 EKG EKG [] Radiology/Procedures Radiology/Procedures [] Course & Med Decision Making Course & Med Decision Making Pertinent Labs and Imaging studies reviewed. (See chart for details) []Patient was given albuterol nebulizer at this point time we are searching for a ride home he is going to call his brother we are looking for a taxi to get him home in a reasonable time frame so he can continue his beta agonist therapy there. We will also give a prescription for doxycycline maybe to help with the likely COPD exacerbation no definite pneumonia was identified on chest x-ray but there was some bibasilar probably atelectasis that I suppose there could be a faint underlying pneumonia so try doxycycline as well final read pending still from previous ER visit Todd Disclaimer Todd Disclaimer This electronic medical record was generated, in whole or in part, using a voice recognition dictation system. Departure Departure Impression: Primary Impression: Acute exacerbation of chronic obstructive pulmonary disease (C... Disposition: 01 HOME, SELF-CARE Condition: STABLE Referrals: UNKNOWN PCP NAME (PCP) Patient Instructions: Chronic Obstructive Pulmonary Disease Exacerbation, [id number] Scripts Doxycycline Hyclate (DOXYCYCLINE HYCLATE) 100 Mg Tablet 1 TAB PO BID, #14 TAB Prov: TEVIN GOODWIN MD 08/20/18 TEVIN GOODWIN MD Aug 20, 2018 05:53
[2018-08-20] MEDS ORDERED: ALBUTEROL SULFATE 2.5 MG/3 ML NEBU. NEB ONE (06:00)
[2018-08-25] MEDS ORDERED: METH40VI IJ (23:10)
[2018-08-25] MEDS ORDERED: ALBU2.5V5 NEB (23:10)
[2018-08-25] MEDS ORDERED: BUDE0.253 NEB (23:10)
== END 2018-08-20 06:27 | disposition home or self-care (01) ==
LOC: ER 05:02
DX: J44.1 Chronic obstructive pulmonary disease with (acute) exacerbation (principal); I11.0 Hypertensive heart disease with heart failure; I50.9 Heart failure, unspecified; E78.00 Pure hypercholesterolemia, unspecified; Z88.6 Allergy status to analgesic agent
CPT/HCPCS: 94640; 99283; J7613

== ENCOUNTER 2018-09-02 20:19 | Emergency (ER) | payer MEDICARE, MEDICAID ==
[~2018-09-02] VITALS: Ht 180.3 cm; Wt 72.1 kg
[~2018-09-02 20:19] MED LIST changes: +ASPI-612 PO; +BUDE0.253 NEB; +DILT30TA26 PO; +INSU100I11 SQ; +METH40VI IJ
[2018-09-02] MEDS ORDERED: IPRATRPIUM/ALBUTEROL 0.5/2.5MG 3 ML NEBU. NEB ONE ×2 (21:15→22:00)
[2018-09-02 21:30] VITALS: BP 152/96
--- NOTE | 2018-09-02 21:55 | PHYS DOC ---
Past Medical History Past Medical History: Bronchitis, CHF, COPD, High Cholesterol, Heart Disease, Hypertension, Other Additional Past Medical Histor: EMPHYSEMA-on 3 L NC, "prediabetes", mdd,PE Past Surgical History: Other Additional Past Surgical Histo: HERNIA REPAIR Alcohol Use: None Drug Use: None Adult General Chief Complaint Chief Complaint: SHORTNESS OF BREATH HPI HPI Patient is a 58 year old [f__sex] who presents with [] Review of Systems Review of Systems Constitutional: Denies fever or chills [] Eyes: Denies change in visual acuity, redness, or eye pain [] HENT: Denies nasal congestion or sore throat [] Respiratory: Denies cough or shortness of breath [] Cardiovascular: No additional information not addressed in HPI [] GI: Denies abdominal pain, nausea, vomiting, bloody stools or diarrhea [] : Denies dysuria or hematuria [] Musculoskeletal: Denies back pain or joint pain [] Integument: Denies rash or skin lesions [] Neurologic: Denies headache, focal weakness or sensory changes [] Endocrine: Denies polyuria or polydipsia [] All other systems were reviewed and found to be within normal limits, except as documented in this note. Current Medications Current Medications Current Medications Medications (Trade) Dose Ordered Sig/Candy Start Time Stop Time Status Last Admin Dose Admin Albuterol/ Ipratropium (Duoneb) 3 ml 1X ONCE 09/02/18 22:00 09/02/18 22:01 DC 09/02/18 21:34 3 ML Tramadol HCl (Ultram) 50 mg 1X ONCE 09/02/18 22:30 09/02/18 22:30 DC 09/02/18 22:06 50 MG Allergies Allergies Allergies Coded Allergies Type Severity Reaction Last Updated Verified No Known Medication Allergies Allergy Unknown 08/26/18 Yes Physical Exam Physical Exam Constitutional: Well developed, well nourished, no acute distress, non-toxic appearance. [] HENT: Normocephalic, atraumatic, bilateral external ears normal, oropharynx kamar [address], no oral exudates, nose normal. [] Eyes: PERRLA, EOMI, conjunctiva normal, no discharge. [] Neck: Normal range of motion, no tenderness, supple, no stridor. [] Cardiovascular:Heart rate regular rhythm, no murmur [] Lungs & Thorax: Bilateral breath sounds clear to auscultation [] Abdomen: Bowel sounds normal, soft, no tenderness, no masses, no pulsatile masses. [] Skin: Warm, dry, no erythema, no rash. [] Back: No tenderness, no CVA tenderness. [] Extremities: No tenderness, no cyanosis, no clubbing, ROM intact, no edema. [] Neurologic: Alert and oriented X 3, normal motor function, normal sensory function, no focal deficits noted. [] Psychologic: Affect normal, judgement normal, mood normal. [] Current Patient Data Vital Signs Vital Signs Date Time Temp Pulse Resp B/P (MAP) Pulse Ox O2 Delivery O2 Flow Rate FiO2 09/02/18 22:06 Room Air 09/02/18 21:35 4.0 09/02/18 21:30 113 18 152/96 (114) 98 09/02/18 20:25 98.3 98.3 EKG EKG @2046 Sinus tachycardia at 107bpm, baseline artifact noted, NO ST elevation Radiology/Procedures Radiology/Procedures [] Course & Med Decision Making Course & Med Decision Making Pertinent Labs and Imaging studies reviewed. (See chart for details) [] Dragon Disclaimer Dragon Disclaimer This electronic medical record was generated, in whole or in part, using a voice recognition dictation system. Departure Departure Impression: Primary Impression: COPD exacerbation Disposition: 01 HOME, SELF-CARE Condition: IMPROVED Referrals: UNKNOWN PCP NAME (PCP) Patient Instructions: Chronic Obstructive Pulmonary Disease Exacerbation, [id number] Additional Instructions: Continue previously prescribed steroids and nebulizer treatments. BONILLA JONES DO Sep 02, 2018 21:55
[2018-09-02] MEDS ORDERED: traMADol 50 MG TABLET PO ONE (22:30)
--- NOTE | 2018-09-03 05:39 | EKG ---
[facility] [address] [place] [address] Test Date: 2018-09-02 Test Time: 20:46:40 Pat Name: KAYLA JONES Department: Room: Gender: M [employer] Wel[employer]: : 1960 Requested By: BONILLA JONES Order Number: [id number] Reading MD: Measurements Intervals [place] Rate: 106 P: 8 LA: 166 QRS: 59 QRSD: 82 T: 75 QT: 312 QTc: 416 Interpretive Statements SINUS TACHYCARDIA COMPLEX(ES) WITH ABERRANT INTRAVENTRICULAR CONDUCTION CONSIDER RIGHT VENTRICULAR HYPERTROPHY NON SPECIFIC ST-T ABNORMALITY (ELEVATION) NON SPECIFIC ST DEPRESSION ABNORMAL ECG No previous ECG available for comparison
--- NOTE | 2018-09-03 08:05 | RAD ---
EXAM: PA and Lateral Views of the Chest DATE: 09/02/2018 9:07 PM INDICATION: Shortness of breath COMPARISON: CT 08/27/2018, radiograph 08/25/2018 FINDINGS- IMPRESSION: The heart is not enlarged. Aorta is mildly tortuous. Mediastinal and hilar contours are stable. Marked emphysematous changes with large bulla/blebs in the left apex and midlung, stable to prior CT 08/27/2018 without definite associated pneumothorax. Minimal patchy opacities right lung base likely atelectasis. No pleural effusion. Electronically signed by: Francisco Griggs MD (09/03/2018 8:02 AM) [facility]
[2018-09-09] MEDS ORDERED: AZIT500T4 PO (14:18)
[2018-09-09] MEDS ORDERED: RIVA20TA2 PO (14:18)
[2018-09-09] MEDS ORDERED: TIZA4TAB PO (14:18)
[2018-09-09] MEDS ORDERED: METF500T16 PO (14:18)
== END 2018-09-02 21:57 | disposition home or self-care (01) ==
LOC: ER 20:19
DX: J44.1 Chronic obstructive pulmonary disease with (acute) exacerbation (principal); I11.0 Hypertensive heart disease with heart failure; I50.9 Heart failure, unspecified; E78.00 Pure hypercholesterolemia, unspecified
CPT/HCPCS: 71046; 93005; 94640; 99284; J7620

== ENCOUNTER 2018-09-08 17:26 | Emergency (ER) | payer MEDICARE, MEDICAID ==
[~2018-09-08] VITALS: Ht 180.3 cm; Wt 72.6 kg
[2018-09-08 17:59] LABS: BASO % 0 % (0-3); EOS % 0 % (0-3); HEMOGLOBIN 8.6 g/dL (13.0-17.5); LYMPH # 0.1 x10^3/uL (1.0-4.8); LYMPH % 2 % (24-48); MEAN CORPUSCULAR HEMOGLOBIN 25 pg (25-35); MEAN CORPUSCULAR HGB CONC 32 g/dL (31-37); MEAN CORPUSCULAR VOLUME 78 fL (79-100); MONO # 0.4 x10^3/uL (0.0-1.1); MONO % 4 % (0-9); NEUT # 8.3 x10^3/uL (1.8-7.7); NEUT % 94 % (31-73); PLATELET COUNT 198 x10^3/uL (140-400); RED BLOOD COUNT 3.48 x10^6/uL (4.30-5.70); RED CELL DISTRIBUTION WIDTH 18.3 % (11.5-14.5); WHITE BLOOD COUNT 8.8 x10^3/uL (4.0-11.0)
--- NOTE | 2018-09-08 18:08 | PHYS DOC ---
Past Medical History Past Medical History: Bronchitis, CHF, COPD, High Cholesterol, Heart Disease, Hypertension, Other Additional Past Medical Histor: EMPHYSEMA-on 3 L NC, "prediabetes", mdd,PE (MAURA SEGURA APRN) Past Surgical History: Other Additional Past Surgical Histo: HERNIA REPAIR (MAURA SEGURA APRN) Alcohol Use: None Drug Use: None (MAURA SEGURA APRN) Adult General Chief Complaint Chief Complaint: SHORTNESS OF BREATH HPI HPI Patient is a 58 year old male who presents with has COPD, CHF, bronchitis, high cholesterol, heart disease, hypertension, history of a PE that comes in today with after leaning over to check his oxygen tank he felt a pop in her left rib directly under his breastbone and then suddenly started having increased shortness of air and pain that is sharp when he takes deep breath. He rates his pain as 10 9 out of 10. Patient states he took a tramadol, prednisone, 2 nebulizer treatments, uses an inhaler, Zanaflex. Patient is usually on 3 L of oxygen and he is currently on 3 L of oxygen satting at 98% on room air. (MAURA SEGURA PERFORMANCE TEST ENGINEER) Review of Systems Review of Systems Constitutional: Denies fever or chills [] Eyes: Denies change in visual acuity, redness, or eye pain [] HENT: Denies nasal congestion or sore throat [] Respiratory: Denies cough. Increased shortness of breath [] Cardiovascular: No additional information not addressed in HPI [] GI: Denies abdominal pain, nausea, vomiting, bloody stools or diarrhea [] : Denies dysuria or hematuria [] Musculoskeletal: Left Rib pain. Denies back pain or joint pain [] Integument: Denies rash or skin lesions [] Neurologic: Denies headache, focal weakness or sensory changes [] Endocrine: Denies polyuria or polydipsia [] All other systems were reviewed and found to be within normal limits, except as documented in this note. (MAURA SEGURA APRN) Current Medications Current Medications Current Medications Medications (Trade) Dose Ordered Sig/Candy Start Time Stop Time Status Last Admin Dose Admin Lorazepam (Ativan Inj) 0.5 mg 1X ONCE 09/08/18 19:15 09/08/18 19:16 DC 09/08/18 19:29 0.5 MG (BONILLA JONES DO) Allergies Allergies Allergies Coded Allergies Type Severity Reaction Last Updated Verified No Known Medication Allergies Allergy Unknown 08/26/18 Yes (BONILLA JONES DO) Physical Exam Physical Exam Constitutional: Well developed, well nourished, no acute distress, non-toxic appearance. [] HENT: Normocephalic, atraumatic, bilateral external ears normal, oropharynx moist, no oral exudates, nose normal. [] Eyes: PERRLA, EOMI, conjunctiva normal, no discharge. [] Neck: Normal range of motion, no tenderness, supple, no stridor. [] Cardiovascular:Heart rate regular rhythm, no murmur [] Lungs & Thorax: Right upper breath sounds clear to auscultation and lower are diminished. Left upper and lower diminished. Tenderness to rib 5 or 6. [] Abdomen: Bowel sounds normal, soft, no tenderness, no masses, no pulsatile masses. [] Skin: Warm, dry, no erythema, no rash. [] Back: No tenderness, no CVA tenderness. [] Extremities: No tenderness, no cyanosis, no clubbing, ROM intact, no edema. [] Neurologic: Alert and oriented X 3, normal motor function, normal sensory function, no focal deficits noted. [] Psychologic: Affect normal, judgement normal, mood normal. [] (MAURA SEGURA APRN) Current Patient Data Vital Signs Vital Signs Date Time Temp Pulse Resp B/P (MAP) Pulse Ox O2 Delivery O2 Flow Rate FiO2 09/08/18 18:29 92 20 126/91 (103) 98 Nasal Cannula 3.0 09/08/18 17:34 98.4 98.4 (BONILLA JONES DO) Lab Values Laboratory Tests Test 09/08/18 17:35 White Blood Count 8.8 x10^3/uL (4.0-11.0) Red Blood Count 3.48 x10^6/uL (4.30-5.70) L Hemoglobin 8.6 g/dL (13.0-17.5) L Hematocrit 27.0 % (39.0-53.0) L Mean Corpuscular Volume 78 fL (79-100) L Mean Corpuscular Hemoglobin 25 pg (25-35) Mean Corpuscular Hemoglobin Concent 32 g/dL (31-37) Red Cell Distribution Width 18.3 % (11.5-14.5) H Platelet Count 198 x10^3/uL (140-400) Neutrophils (%) (Auto) 94 % (31-73) H Lymphocytes (%) (Auto) 2 % (24-48) L Monocytes (%) (Auto) 4 % (0-9) Eosinophils (%) (Auto) 0 % (0-3) Basophils (%) (Auto) 0 % (0-3) Neutrophils # (Auto) 8.3 x10^3/uL (1.8-7.7) H Lymphocytes # (Auto) 0.1 x10^3/uL (1.0-4.8) L Monocytes # (Auto) 0.4 x10^3/uL (0.0-1.1) Eosinophils # (Auto) 0.0 x10^3/uL (0.0-0.7) Basophils # (Auto) 0.0 x10^3/uL (0.0-0.2) Segmented Neutrophils % 96 % (35-66) H Lymphocytes % 1 % (24-48) L Monocytes % 3 % (0-10) Toxic Granulation Slight Platelet Estimate Adequate (ADEQUATE) Polychromasia Slight Hypochromasia Slight Anisocytosis Slight Microcytosis Slight D-Dimer (Almita) < 0.27 ug/mlFEU Sodium Level 140 mmol/L (136-145) Potassium Level 3.8 mmol/L (3.5-5.1) Chloride Level 100 mmol/L (98-107) Carbon Dioxide Level 32 mmol/L (21-32) Anion Gap 8 (6-14) Blood Urea Nitrogen 21 mg/dL (8-26) Creatinine 1.1 mg/dL (0.7-1.3) Estimated GFR (Cockcroft-Gault) 82.9 BUN/Creatinine Ratio 19 (6-20) Glucose Level 150 mg/dL (70-99) H Calcium Level 9.2 mg/dL (8.5-10.1) Total Bilirubin 0.5 mg/dL (0.2-1.0) Aspartate Amino Transferase (AST) 22 U/L (15-37) Alanine Aminotransferase (ALT) 38 U/L (16-63) Alkaline Phosphatase 85 U/L (46-116) Troponin I Quantitative < 0.017 ng/mL (0.000-0.055) UO-Bjd-G-Type Natriuretic Peptide 88 pg/mL (0-124) Total Protein 6.5 g/dL (6.4-8.2) Albumin 3.4 g/dL (3.4-5.0) Albumin/Globulin Ratio 1.1 (1.0-1.7) Laboratory Tests 09/08/18 17:35 Laboratory Tests 09/08/18 17:35 (BONILLA JONES DO) Lab Values Laboratory Tests Test 09/08/18 17:35 White Blood Count 8.8 x10^3/uL (4.0-11.0) Red Blood Count 3.48 x10^6/uL (4.30-5.70) L Hemoglobin 8.6 g/dL (13.0-17.5) L Hematocrit 27.0 % (39.0-53.0) L Mean Corpuscular Volume 78 fL (79-100) L Mean Corpuscular Hemoglobin 25 pg (25-35) Mean Corpuscular Hemoglobin Concent 32 g/dL (31-37) Red Cell Distribution Width 18.3 % (11.5-14.5) H Platelet Count 198 x10^3/uL (140-400) Neutrophils (%) (Auto) 94 % (31-73) H Lymphocytes (%) (Auto) 2 % (24-48) L Monocytes (%) (Auto) 4 % (0-9) Eosinophils (%) (Auto) 0 % (0-3) Basophils (%) (Auto) 0 % (0-3) Neutrophils # (Auto) 8.3 x10^3/uL (1.8-7.7) H Lymphocytes # (Auto) 0.1 x10^3/uL (1.0-4.8) L Monocytes # (Auto) 0.4 x10^3/uL (0.0-1.1) Eosinophils # (Auto) 0.0 x10^3/uL (0.0-0.7) Basophils # (Auto) 0.0 x10^3/uL (0.0-0.2) Segmented Neutrophils % 96 % (35-66) H Lymphocytes % 1 % (24-48) L Monocytes % 3 % (0-10) Toxic Granulation Slight Platelet Estimate Adequate (ADEQUATE) Polychromasia Slight Hypochromasia Slight Anisocytosis Slight Microcytosis Slight D-Dimer (Almita) < 0.27 ug/mlFEU Sodium Level 140 mmol/L (136-145) Potassium Level 3.8 mmol/L (3.5-5.1) Chloride Level 100 mmol/L (98-107) Carbon Dioxide Level 32 mmol/L (21-32) Anion Gap 8 (6-14) Blood Urea Nitrogen 21 mg/dL (8-26) Creatinine 1.1 mg/dL (0.7-1.3) Estimated GFR (Cockcroft-Gault) 82.9 BUN/Creatinine Ratio 19 (6-20) Glucose Level 150 mg/dL (70-99) H Calcium Level 9.2 mg/dL (8.5-10.1) Total Bilirubin 0.5 mg/dL (0.2-1.0) Aspartate Amino Transferase (AST) 22 U/L (15-37) Alanine Aminotransferase (ALT) 38 U/L (16-63) Alkaline Phosphatase 85 U/L (46-116) Troponin I Quantitative < 0.017 ng/mL (0.000-0.055) CE-Hah-M-Type Natriuretic Peptide 88 pg/mL (0-124) Total Protein 6.5 g/dL (6.4-8.2) Albumin 3.4 g/dL (3.4-5.0) Albumin/Globulin Ratio 1.1 (1.0-1.7) Laboratory Tests 09/08/18 17:35 Laboratory Tests 09/08/18 17:35 (MAURA SEGURA APRN) EKG EKG Sinus Tachycardia[] Interpretation Time: [address] Tavarez (MAURA SEGURA APRN) Radiology/Procedures Radiology/Procedures [] (MAURA SEGURA APRN) Impressions: [facility] [address] [place] [address] IMAGING REPORT Signed PATIENT: KAYLA JONES ACCOUNT: [id number] : 1960 LOCATION: ER AGE: 58 SEX: M EXAM STATUS: REG ER ORD. PHYSICIAN: MAURA SEGURA APRN REASON: CHEST XRAY APPEARS ABNORMAL PROCEDURE: CT CHEST WO CONTRAST Exam performed: CT scan of the chest without contrast. Indication: Shortness of breath, COPD, abnormal chest x-ray Date of Service: 09/08/2018. Chest x-ray performed earlier today Technique: Contiguous helical acquisitions are obtained through the chest without IV contrast. Sagittal and coronal reformatted images are obtained and reviewed. CT chest findings: Diffuse biapical emphysematous changes are seen with a large emphysematous bulla. Prominent interstitial markings are seen in the right lung base with few small airspace opacities likely infiltrates. Lack of IV contrast limits evaluation of neck and intrathoracic great vessels, however they appear grossly normal in course and caliber. No dominant mediastinal, hilar or axillary lymphadenopathy seen. The central airway is patent.There is no pleural effusion or pneumothorax. Limited evaluation of the upper abdominal structures is unremarkable. Impression CT chest: 1. Emphysematous changes both lungs with a dominant emphysematous bullae in the left upper lobe. 2. Small patchy airspace opacities right lower lobe likely developing infiltrates or atelectasis. PQRS Compliance Statement: One or more of the following individualized dose reduction techniques were utilized for this examination: 1. Automated exposure control 2. Adjustment of the mA and/or kV according to patient size 3. Use of iterative reconstruction technique Electronically signed by: Doreen Hayden MD (09/08/2018 7:39 PM) [facility] DICTATED and SIGNED BY: DOREEN HAYDEN MD DATE: 09/08/181938 (MAURA SEGURA APRN) Course & Med Decision Making Course & Med Decision Making Patient is a 58 year old male who presents with has COPD, CHF, bronchitis, high cholesterol, heart disease, hypertension, history of a PE that comes in today with after leaning over to check his oxygen tank he felt a pop in her left rib directly under his breastbone and then suddenly started having increased shortness of air and pain that is sharp when he takes deep breath. He rates his pain as sharp 9 out of 10. Patient states he took a tramadol, prednisone, 2 nebulizer treatments, uses an inhaler, Zanaflex and nothing has helped. Patient is usually on 3 L of oxygen and he is currently on 3 L of oxygen satting at 98% on room air. Alert and oriented. Speaks in full clear sentences. Skin is pink warm and dry. Right lung sounds are clear in upper lobes slightly diminished in lower lobes. Left lung sounds are diminished in upper and lower lobes. Patient has tenderness at the rib on the left side directly under his breast at rib 5 or 6. No deformity or crepitus is felt palpating the ribs or the chest. Patient denies any chest pain. Patient states is sharp and hurts worse when he takes a deep breath. Patient states he has not been running fevers and he was feeling at his baseline his disease processes until this occurred. EKG does show tachycardia at 108. No extremity swelling. Signs are otherwise normal. Patient denies abdominal pain, nausea, vomiting, diarrhea, fever, increased cough, chest pain, numbness or tingling, dizziness. Patient's blood work is comparable to blood work that was done about 10 days ago. Patient states his doctors know that he is anemic. Patient's chest x-rays were read by Dr. Jones and look slightly abnormal. CT chest is ordered to rule out a pneumothorax. CT chest shows 1. Emphysematous changes both lungs with a dominant emphysematous bullae in the left upper lobe. 2. Small patchy airspace opacities right lower lobe likely developing infiltrates or atelectasis. Patient states he is taking prednisone every day. Vital signs are within normal limits. Patient to be discharged home on a antibiotic and to follow up with primary care. (MAURA SEGURA APRN) Dragon Disclaimer Dragon Disclaimer This electronic medical record was generated, in whole or in part, using a voice recognition dictation system. (MAURA SEGURA APRN) Departure Departure Impression: Primary Impression: COPD exacerbation Disposition: 01 HOME, SELF-CARE Condition: STABLE Referrals: UNKNOWN PCP NAME (PCP) Patient Instructions: Pneumonia, Adult Additional Instructions: Follow up with your doctor this coming week. Take medications as prescribed. Scripts Tramadol Hcl (TRAMADOL HCL) 50 Mg Tablet 50 MG PO Q6HRS PRN for PAIN, #10 TAB Prov: MAURA SEGURA APRN 09/08/18 Doxycycline Hyclate (DOXYCYCLINE HYCLATE) 100 Mg Tablet 1 TAB PO BID, #20 TAB Prov: MAURA SEGURA APRN 09/08/18 Attending Signature Attending Signature I have reviewed the PA/PRINTED CIRCUIT BOARD DRAFTER's note and plan of care. I was available for consultation as needed during the patient's visit in the emergency department. I agree with the clinical impression, plan, and disposition. (BONILLA JONES DO) MAURA SEGURA APRN Sep 08, 2018 18:07 BONILLA JONES DO Sep 10, 2018 04:00
[2018-09-08 18:12] LABS: CALCIUM 9.2 mg/dL (8.5-10.1); CREATININE 1.1 mg/dL (0.7-1.3); GFR 82.9; POTASSIUM 3.8 mmol/L (3.5-5.1)
[2018-09-08 18:18] LABS: ALBUMIN 3.4 g/dL (3.4-5.0); ALBUMIN/GLOBULIN RATIO 1.1 (1.0-1.7); TOTAL BILIRUBIN 0.5 mg/dL (0.2-1.0); TOTAL PROTEIN 6.5 g/dL (6.4-8.2)
[2018-09-08 18:29] VITALS: BP 126/91
[2018-09-08 18:39] LABS: % LYMPHS 1 % (24-48); % MONOS 3 % (0-10); % SEGS 96 % (35-66); PLT ESTIMATE ADEQUATE (ADEQUATE)
[2018-09-08 18:41] LABS: ANISOCYTOSIS SLIGHT; HYPOCHROMIA SLIGHT; MICROCYTOSIS SLIGHT; POLYCHROMASIA SLIGHT; TOXIC GRANULATION SLIGHT
--- NOTE | 2018-09-08 19:41 | RAD ---
Exam performed: CT scan of the chest without contrast. Indication: Shortness of breath, COPD, abnormal chest x-ray Date of Service: 09/08/2018. Chest x-ray performed earlier today Technique: Contiguous helical acquisitions are obtained through the chest without IV contrast. Sagittal and coronal reformatted images are obtained and reviewed. CT chest findings: Diffuse biapical emphysematous changes are seen with a large emphysematous bulla. Prominent interstitial markings are seen in the right lung base with few small airspace opacities likely infiltrates. Lack of IV contrast limits evaluation of neck and intrathoracic great vessels, however they appear grossly normal in course and caliber. No dominant mediastinal, hilar or axillary lymphadenopathy seen. The central airway is patent.There is no pleural effusion or pneumothorax. Limited evaluation of the upper abdominal structures is unremarkable. Impression CT chest: 1. Emphysematous changes both lungs with a dominant emphysematous bullae in the left upper lobe. 2. Small patchy airspace opacities right lower lobe likely developing infiltrates or atelectasis. PQRS Compliance Statement: One or more of the following individualized dose reduction techniques were utilized for this examination: 1. Automated exposure control 2. Adjustment of the mA and/or kV according to patient size 3. Use of iterative reconstruction technique Electronically signed by: Doreen Hayden MD (09/08/2018 7:39 PM) [facility]
[2018-09-08] MEDS ORDERED: METH4TAB2 PO (20:01)
[2018-09-08] MEDS ORDERED: DOXY100T PO (20:01)
[2018-09-08] MEDS ORDERED: TRAM50TA PO (20:36)
--- NOTE | 2018-09-09 07:42 | EKG ---
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
--- NOTE | 2018-09-09 08:19 | RAD ---
PORTABLE CHEST 1V History: Shortness of breath, COPD Comparison: September 02, 2018 Findings: Single view of the chest is submitted. There is again emphysema most notable on the left. No convincing pneumothorax is identified. Pericardial cardiac silhouette is stable. There is mild blunting of the right costophrenic sulcus as seen previously. There is no new lobar consolidation. Impression: 1. There is again emphysema greater on the left, no new lobar consolidation identified by radiograph. Electronically signed by: Nehemias Kingsley MD (09/09/2018 8:16 AM) [id number]
--- NOTE | 2018-09-09 08:20 | RAD ---
Exam performed: Left rib series. Indication: Left chest pain Date of service: 09/08/2018. Comparison: None available. Procedure: Left rib series is obtained. Findings: No rib fractures identified. The visualized left lung is clear. IMPRESSION: No definite rib fractures identified. Electronically signed by: Doreen Hayden MD (09/09/2018 8:17 AM) [facility]
[2018-09-09] MEDS ORDERED: TIZA4TAB2 PO (14:18)
[2018-09-09] MEDS ORDERED: RIVA20TA2 PO (14:18)
[2018-09-09] MEDS ORDERED: METF500T16 PO (14:18)
[2018-09-09] MEDS ORDERED: AZIT500T4 PO (14:18)
[2018-09-11] MEDS ORDERED: LORA-434 PO (09:14)
[2018-09-11] MEDS ORDERED: LIDO700A21 TP (10:58)
== END 2018-09-08 20:43 | disposition home or self-care (01) ==
LOC: ER 17:26
DX: J44.1 Chronic obstructive pulmonary disease with (acute) exacerbation (principal); R07.81 Pleurodynia; I11.0 Hypertensive heart disease with heart failure; I50.9 Heart failure, unspecified; E78.00 Pure hypercholesterolemia, unspecified
CPT/HCPCS: 36415; 71045; 71100; 71250; 80053; 83880; 84484; 85007; 85025; 85379; 93005; 96374; J2060; 99285-25

== ENCOUNTER 2018-10-01 04:30 | Emergency (ER) | payer MEDICARE, MEDICAID ==
[~2018-10-01] VITALS: Ht 180.3 cm; Wt 72.6 kg
[~2018-10-01 04:30] MED LIST changes: +AZIT500T4 PO; +LIDO700A21 TP; +METF500T16 PO; +TIZA4TAB2 PO
[2018-10-01] MEDS ORDERED: LORazepam 0.5 MG TABLET PO ONE (05:00)
[2018-10-01] MEDS ORDERED: oxyCODONE/APAP 5/325 1 TAB TABLET PO ONE (05:00)
[2018-10-01] MEDS ORDERED: IPRATRPIUM/ALBUTEROL 0.5/2.5MG 3 ML NEBU. NEB ONE (05:00)
[2018-10-01 05:03] LABS: BASO % 0 % (0-3); EOS % 0 % (0-3); HEMATOCRIT 23.8 % (39.0-53.0); HEMOGLOBIN 7.7 g/dL (13.0-17.5); LYMPH # 0.1 x10^3/uL (1.0-4.8); LYMPH % 3 % (24-48); MEAN CORPUSCULAR HEMOGLOBIN 24 pg (25-35); MEAN CORPUSCULAR HGB CONC 33 g/dL (31-37); MEAN CORPUSCULAR VOLUME 74 fL (79-100); MONO # 0.3 x10^3/uL (0.0-1.1); MONO % 5 % (0-9); NEUT # 4.9 x10^3/uL (1.8-7.7); NEUT % 92 % (31-73); PLATELET COUNT 389 x10^3/uL (140-400); RED BLOOD COUNT 3.24 x10^6/uL (4.30-5.70); RED CELL DISTRIBUTION WIDTH 19.1 % (11.5-14.5); WHITE BLOOD COUNT 5.3 x10^3/uL (4.0-11.0)
[2018-10-01 05:15] LABS: CALCIUM 9.1 mg/dL (8.5-10.1); CREATININE 0.9 mg/dL (0.7-1.3); GFR 104.5; POTASSIUM 3.8 mmol/L (3.5-5.1)
[2018-10-01 05:21] LABS: ALBUMIN 3.3 g/dL (3.4-5.0); TOTAL BILIRUBIN 0.5 mg/dL (0.2-1.0); TOTAL PROTEIN 6.6 g/dL (6.4-8.2)
[2018-10-01 05:29] VITALS: BP 134/79
--- NOTE | 2018-10-01 05:31 | PHYS DOC ---
Past Medical History Past Medical History: Anxiety, Bronchitis, CHF, COPD Additional Past Medical Histor: EMPHYSEMA, OSTEOPOROSIS Past Surgical History: No Surgical History Additional Past Surgical Histo: HERNIA REPAIR Additional Information: QUIT 6YRS AGO. Alcohol Use: None Drug Use: None Adult General Chief Complaint Chief Complaint: SHORTNESS OF BREATH HPI HPI Patient is a 58 year old [male brought in by ambulance with shortness of breath well-known to this department history of COPD on home oxygen pretty end-stage COPD overall multiple visits also history of anxiety and chronic back pain presenting with increased shortness of breath throughout the night some yellowish colored sputum no fever that he knows of tried his nebulizers that did not seem to be working so came to the ER for evaluation no recent fevers he actually has been doing well last couple weeks overall. Review of Systems Review of Systems Constitutional: Denies fever or chills [] Eyes: Denies change in visual acuity, redness, or eye pain [] HENT: Denies nasal congestion or sore throat [] Respiratory: Cardiovascular: No additional information not addressed in HPI [] GI: Musculoskeletal: Integument: Denies rash or skin lesions [] Neurologic: Denies headache, focal weakness or sensory changes [] Endocrine: Denies polyuria or polydipsia [] All other systems were reviewed and found to be within normal limits, except as documented in this note. Current Medications Current Medications Current Medications Medications (Trade) Dose Ordered Sig/Candy Start Time Stop Time Status Last Admin Dose Admin Albuterol/ Ipratropium (Duoneb) 3 ml 1X ONCE 10/01/18 05:00 10/01/18 05:01 DC 10/01/18 04:55 3 ML Lorazepam (Ativan) 0.5 mg 1X ONCE 10/01/18 05:00 10/01/18 05:01 DC 10/01/18 05:18 0.5 MG Oxycodone/ Acetaminophen (Percocet 5/325) 2 tab 1X ONCE 10/01/18 05:00 10/01/18 05:01 DC 10/01/18 05:18 2 TAB Allergies Allergies Allergies Coded Allergies Type Severity Reaction Last Updated Verified No Known Medication Allergies Allergy Unknown 08/26/18 Yes Physical Exam Physical Exam Constitutional: Well developed chronically ill appearing. HENT: Normocephalic, atraumatic, bilateral external ears normal, oropharynx moist, no oral exudates, nose normal. [] Eyes: PERRLA, EOMI, conjunctiva normal, no discharge. [] Neck: Normal range of motion, no tenderness, supple, no stridor. [] Cardiovascular:Heart rate regular rhythm, 2/6 murmur [] Lungs & Thorax: decreased breath sounds throughout Abdomen: Bowel sounds normal, soft, no tenderness, no masses, no pulsatile masses. [] Skin: chronic dry skin. Back: No tenderness, no CVA tenderness. [] Extremities: No tenderness, no cyanosis, no clubbing, ROM intact, one plus edema. Neurologic: Alert and oriented X 3, normal motor function, normal sensory funct ion, no focal deficits noted. [] Psychologic: Affect normal, judgement normal, mood normal. [] Current Patient Data Vital Signs Vital Signs Date Time Temp Pulse Resp B/P (MAP) Pulse Ox O2 Delivery O2 Flow Rate FiO2 10/01/18 05:18 19 99 Nasal Cannula 10/01/18 04:57 4.0 10/01/18 04:33 98.0 99 138/76 (96) 98.0 Lab Values Laboratory Tests Test 10/01/18 04:55 White Blood Count 5.3 x10^3/uL (4.0-11.0) Red Blood Count 3.24 x10^6/uL (4.30-5.70) L Hemoglobin 7.7 g/dL (13.0-17.5) L Hematocrit 23.8 % (39.0-53.0) L Mean Corpuscular Volume 74 fL (79-100) L Mean Corpuscular Hemoglobin 24 pg (25-35) L Mean Corpuscular Hemoglobin Concent 33 g/dL (31-37) Red Cell Distribution Width 19.1 % (11.5-14.5) H Platelet Count 389 x10^3/uL (140-400) Neutrophils (%) (Auto) 92 % (31-73) H Lymphocytes (%) (Auto) 3 % (24-48) L Monocytes (%) (Auto) 5 % (0-9) Eosinophils (%) (Auto) 0 % (0-3) Basophils (%) (Auto) 0 % (0-3) Neutrophils # (Auto) 4.9 x10^3/uL (1.8-7.7) Lymphocytes # (Auto) 0.1 x10^3/uL (1.0-4.8) L Monocytes # (Auto) 0.3 x10^3/uL (0.0-1.1) Eosinophils # (Auto) 0.0 x10^3/uL (0.0-0.7) Basophils # (Auto) 0.0 x10^3/uL (0.0-0.2) Platelet Estimate Pending Sodium Level 139 mmol/L (136-145) Potassium Level 3.8 mmol/L (3.5-5.1) Chloride Level 99 mmol/L (98-107) Carbon Dioxide Level 33 mmol/L (21-32) H Anion Gap 7 (6-14) Blood Urea Nitrogen 16 mg/dL (8-26) Creatinine 0.9 mg/dL (0.7-1.3) Estimated GFR (Cockcroft-Gault) 104.5 BUN/Creatinine Ratio 18 (6-20) Glucose Level 128 mg/dL (70-99) H Calcium Level 9.1 mg/dL (8.5-10.1) Total Bilirubin 0.5 mg/dL (0.2-1.0) Aspartate Amino Transferase (AST) 25 U/L (15-37) Alanine Aminotransferase (ALT) 26 U/L (16-63) Alkaline Phosphatase 86 U/L (46-116) Total Protein 6.6 g/dL (6.4-8.2) Albumin 3.3 g/dL (3.4-5.0) L Albumin/Globulin Ratio 1.0 (1.0-1.7) Laboratory Tests 10/01/18 04:55 Laboratory Tests 10/01/18 04:55 EKG EKG []nsr rate 92 no actue ischemic changes, no stemi. Radiology/Procedures Radiology/Procedures [] Impressions: My interpretation chest x-ray overall is pretty similar I think the infiltrates of the lung bases are about stable maybe slightly improved compared to prior. Large bullae left lung unchanged Course & Med Decision Making Course & Med Decision Making Pertinent Labs and Imaging studies reviewed. (See chart for details) []58-year-old male known COPD on home oxygen presenting with shortness of breath. Similar to prior presentation there were basically decreased breath sounds throughout actually looks pretty good to me. He was given a nebulizer and Ativan and Percocet and he rested comfortably he was ready to go home at that time. Reassurance was provided return precautions discussed for now continue home treatment Dragon Disclaimer Dragon Disclaimer This electronic medical record was generated, in whole or in part, using a voice recognition dictation system. Departure Departure Impression: Primary Impression: Shortness of breath Disposition: HOME, SELF-CARE Condition: STABLE Referrals: UNKNOWN PCP NAME (PCP) Patient Instructions: Chronic Obstructive Pulmonary Disease Exacerbation, [id number] TEVIN GOODWIN MD Oct 01, 2018 05:31
--- NOTE | 2018-10-01 05:35 | EKG ---
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 Electronically Signed On 10-04-2018 10:04:42 CDT by Evens Jain
[2018-10-01 05:36] LABS: % BANDS 1 % (0-9); % LYMPHS 5 % (24-48); % MONOS 2 % (0-10); % SEGS 92 % (35-66); ANISOCYTOSIS SLIGHT; HYPOCHROMIA SLIGHT; MICROCYTOSIS SLIGHT; PLT ESTIMATE ADEQUATE (ADEQUATE)
--- NOTE | 2018-10-01 06:18 | RAD ---
EXAM: CHEST ONE VIEW. HISTORY: Shortness of breath. COMPARISON: 09/09/2018. FINDINGS: A frontal view of the chest is obtained. There are changes of advanced chronic obstructive pulmonary disease. A large bulla is suspected in the left apex with mild right volume loss. Linear opacities in the right greater than left bases are unchanged and may represent atelectasis or scarring. There is no pneumothorax or pleural effusion. The heart is mildly enlarged. There is a chronic right lateral rib fracture. IMPRESSION: 1. Chronic obstructive pulmonary disease with a large bulla in the left apex. Right greater than left basilar atelectasis or scarring. 2. Mild cardiomegaly. Electronically signed by: Zurdo Valiente MD (10/01/2018 6:15 AM) [id number]
== END 2018-10-01 05:51 | disposition home or self-care (01) ==
LOC: ER 04:30
DX: R06.02 Shortness of breath (principal); J44.9 Chronic obstructive pulmonary disease, unspecified; Z87.891 Personal history of nicotine dependence
CPT/HCPCS: 36415; 71045; 80053; 85007; 85025; 93005; 94640; 99285; J7620

== ENCOUNTER 2018-10-22 13:47 | Emergency (ER) | payer MEDICARE, MEDICAID ==
[~2018-10-22] VITALS: Ht 180.3 cm; Wt 68.0 kg
[~2018-10-22 13:47] MED LIST changes: +LISI1TAB20 PO; -LISI1TAB7 PO
--- NOTE | 2018-10-22 14:12 | PHYS DOC ---
Past Medical History Past Medical History: Anxiety, Bronchitis, CHF, COPD Additional Past Medical Histor: EMPHYSEMA, OSTEOPOROSIS Additional Past Surgical Histo: HERNIA REPAIR Alcohol Use: None Drug Use: None Adult General Chief Complaint Chief Complaint: SHORTNESS OF BREATH HPI HPI Patient is a 58-year-old male, who is well known to me from prior ER visits, as well as numerous ER visits and hospitalizations for end-stage COPD. In fact, the patient states that he just got out of [facility] about 2 hours prior to coming to this facility. He was also hospitalized at this facility for shortness of breath earlier this month. He states that he got home, but the air-conditioning was not working in his home, which causes COPD to flareup and he presented to the emergency department. He reports his usual left-sided pleuritic chest pain, has been evaluated for pulmonary embolism numerous times in the past without evidence of such. He also is having a nonproductive cough, which is chronic for him as well. His heart rate is 107 at the time of my initial assessment. He does have a history of recurrent tachycardia on presentation to the emergency department. He is not exhibiting any significant dyspnea. He states that he does have the ability to try and go to his brother's house where there is air-conditioning. There are no alleviating or exacerbating factors to his symptoms. Review of Systems Review of Systems Constitutional: Denies fever or chills [] Eyes: Denies change in visual acuity, redness, or eye pain [] HENT: Denies nasal congestion or sore throat [] Respiratory:No additional information not addressed in HPI [] Cardiovascular: No additional information not addressed in HPI [] GI: Denies abdominal pain, nausea, vomiting, bloody stools or diarrhea [] : Denies dysuria or hematuria [] Musculoskeletal: Denies back pain or joint pain [] Integument: Denies rash or skin lesions [] Neurologic: Denies headache, focal weakness or sensory changes [] Endocrine: Denies polyuria or polydipsia [] All other systems were reviewed and found to be within normal limits, except as documented in this note. Current Medications Current Medications Current Medications Medications (Trade) Dose Ordered Sig/Candy Start Time Stop Time Status Last Admin Dose Admin Lorazepam (Ativan) 1 mg 1X ONCE 10/22/18 14:30 10/22/18 14:31 DC 10/22/18 14:25 1 MG Allergies Allergies Allergies Coded Allergies Type Severity Reaction Last Updated Verified No Known Medication Allergies Allergy Unknown 08/26/18 Yes Physical Exam Physical Exam PHYSICAL EXAM: CONSTITUTIONAL: Well developed, well nourished HEAD: normocephalic, atraumatic EENT: PERRL, EOMI. Conjunctivae normal color, sclerae non-icteric; moist mucous membranes. NECK: Supple, non-tender; no meningismus. LUNGS: Work of breathing is mildly increased, there are no significant wheezes, rales, or rhonchi. HEART: Regular rate and rhythm, no murmur CHEST: No deformity; non-tender ABDOMEN: The abdomen is soft, and non-tender, no masses or bruits. EXTREM: Normal ROM; no deformity, no calf tenderness. Normal pulses palpable in all extremities. There is no pedal edema. SKIN: No rash; no diaphoresis NEURO: Alert; normal speech and cognition; CN's grossly intact; strength grossly intact without focal deficit. BACK: No CVA TTP. PSYCHIATRIC: The patient exhibits moderately anxious affect. Current Patient Data Vital Signs Vital Signs Date Time Temp Pulse Resp B/P (MAP) Pulse Ox O2 Delivery O2 Flow Rate FiO2 10/22/18 14:01 98.7 107 20 151/76 (101) 99 Room Air 98.7 EKG EKG []Normal sinus rhythm at a rate of 109 beats for minute, normal axis, normal intervals. There are no acute ischemic ST/T changes. Radiology/Procedures Radiology/Procedures [PROCEDURE: CHEST PA & LATERAL CHEST PA LATERAL History: Shortness of breath Comparison: October 01, 2018 chest x-ray. CT August 27, 2018 Findings: Large bulla within the left upper and midlung, similar compared to prior. No pneumothorax. Bibasilar linear atelectasis or scarring, similar compared to prior. Normal heart size. No pleural effusion. Hyperinflation. Mid thoracic vertebral body compression fractures, unchanged height loss. Impression: 1. Large left apical bulla, unchanged. No pneumothorax. 2. Bibasilar linear atelectasis or scarring, unchanged. ] Course & Med Decision Making Course & Med Decision Making Pertinent recent Labs and Imaging studies reviewed. (See chart for details) []3:00 PM: Patient remains stable. I discussed test results, the need for close follow-up, and return precautions. Dragon Disclaimer Dragon Disclaimer This electronic medical record was generated, in whole or in part, using a voice recognition dictation system. Departure Departure Impression: Primary Impression: COPD (chronic obstructive pulmonary disease) Additional Impression: Anxiety Disposition: 01 HOME, SELF-CARE Condition: STABLE Referrals: UNKNOWN PCP NAME (PCP) Patient Instructions: Anxiety and Panic Attacks, Chronic Obstructive Pulmonary Disease Additional Instructions: Continue taking your previously prescribed medication. Problem Qualifiers SHAYY GRIFFITH MD Oct 22, 2018 14:12
[2018-10-22] MEDS ORDERED: LORazepam 0.5 MG TABLET PO ONE (14:30)
--- NOTE | 2018-10-22 14:54 | RAD ---
CHEST PA LATERAL History: Shortness of breath Comparison: October 01, 2018 chest x-ray. CT August 27, 2018 Findings: Large bulla within the left upper and midlung, similar compared to prior. No pneumothorax. Bibasilar linear atelectasis or scarring, similar compared to prior. Normal heart size. No pleural effusion. Hyperinflation. Mid thoracic vertebral body compression fractures, unchanged height loss. Impression: 1. Large left apical bulla, unchanged. No pneumothorax. 2. Bibasilar linear atelectasis or scarring, unchanged. Electronically signed by: Shravan Cai DO (10/22/2018 2:51 PM) [facility]
[2018-10-22] MEDS ORDERED: IPRATRPIUM/ALBUTEROL 0.5/2.5MG 3 ML NEBU. NEB ONE (15:15)
--- NOTE | 2018-10-22 15:18 | EKG ---
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
[2018-10-22 15:21] VITALS: BP 142/90
== END 2018-10-22 15:32 | disposition home or self-care (01) ==
LOC: ER 13:47
DX: J44.9 Chronic obstructive pulmonary disease, unspecified (principal); F41.9 Anxiety disorder, unspecified; I50.9 Heart failure, unspecified
CPT/HCPCS: 94640; 99284; J7620; 71046; 93005

== ENCOUNTER 2018-10-23 23:01 | Inpatient (IN) | payer MEDICARE, MEDICAID ==
[~2018-10-23] VITALS: Ht 180.3 cm; Wt 63.2 kg
[2018-10-23] MEDS ORDERED: MORPHINE SULFATE 4 MG/ML VIAL. IV/SQ PRN (23:15)
[2018-10-23] MEDS ORDERED: methylPREDNISolone SOD SUCC PF 125 MG/2 ML VIAL. IV ONE (23:30)
[2018-10-23] MEDS ORDERED: IPRATRPIUM/ALBUTEROL 0.5/2.5MG 3 ML NEBU. NEB ONE (23:30)
[2018-10-23 23:43] LABS: BASO % 0 % (0-3); EOS # 0.1 x10^3/uL (0.0-0.7); EOS % 1 % (0-3); HEMATOCRIT 25.8 % (39.0-53.0); HEMOGLOBIN 8.1 g/dL (13.0-17.5); LYMPH # 0.4 x10^3/uL (1.0-4.8); LYMPH % 6 % (24-48); MEAN CORPUSCULAR HEMOGLOBIN 23 pg (25-35); MEAN CORPUSCULAR HGB CONC 31 g/dL (31-37); MEAN CORPUSCULAR VOLUME 73 fL (79-100); MONO # 0.6 x10^3/uL (0.0-1.1); MONO % 8 % (0-9); NEUT # 6.1 x10^3/uL (1.8-7.7); NEUT % 85 % (31-73); PLATELET COUNT 328 x10^3/uL (140-400); RED BLOOD COUNT 3.55 x10^6/uL (4.30-5.70); WHITE BLOOD COUNT 7.1 x10^3/uL (4.0-11.0)
[2018-10-23 23:51] LABS: CALCIUM 9.1 mg/dL (8.5-10.1); GFR 92.5; POTASSIUM 3.7 mmol/L (3.5-5.1)
--- NOTE | 2018-10-23 23:54 | PHYS DOC ---
Past Medical History Past Medical History: Anxiety, Bronchitis, CHF, COPD Additional Past Medical Histor: EMPHYSEMA, OSTEOPOROSIS Past Surgical History: No Surgical History Additional Past Surgical Histo: HERNIA REPAIR Alcohol Use: None Drug Use: None Adult General Chief Complaint Chief Complaint: SHORTNESS OF BREATH [facility] HPI Patient is a 58 year old male with history of emphysema, end-stage COPD on oxygen 2-4 L chronically, bronchitis, asthma, anxiety, who presents to the ED today to be evaluated for shortness of breath that began at 7 PM this evening. Patient states he has tried using his inhaler 4 times this evening with no relief. He states is on prednisone 10 mg daily though he states he did not take today's dose. He states he was discharged from [facility] yesterday and went home he found his air conditioner was not working he came to the ED because the heat flared up his COPD he was evaluated and discharged to home. He states is currently staying with his sister who also has air-conditioning problems which flared up his COPD. Patient is well known to this ED with multiple visit for COPD exacerbation. He is also complaining of nonproductive cough for over one week. Review of Systems Review of Systems Constitutional: Denies fever or chills [] Eyes: Denies change in visual acuity, redness, or eye pain [] HENT: Denies nasal congestion or sore throat [] Respiratory: Reports cough and shortness of breath [] Cardiovascular: No additional information not addressed in HPI [] GI: Denies abdominal pain, nausea, vomiting, bloody stools or diarrhea [] : Denies dysuria or hematuria [] Musculoskeletal: Denies back pain or joint pain [] Integument: Denies rash or skin lesions [] Neurologic: Denies headache, focal weakness or sensory changes [] All other systems were reviewed and found to be within normal limits, except as documented in this note. Current Medications Current Medications Current Medications Medications (Trade) Dose Ordered Sig/Cnady Start Time Stop Time Status Last Admin Dose Admin Albuterol/ Ipratropium (Duoneb) 3 ml 1X ONCE 10/23/18 23:30 10/23/18 23:31 DC 10/23/18 23:47 3 ML Methylprednisolone Sodium Succinate (SOLU-Medrol 125MG VIAL) 125 mg 1X ONCE 10/23/18 23:30 10/23/18 23:31 DC 10/24/18 00:08 125 MG Morphine Sulfate (Morphine Sulfate) 4 mg PRN Q15MIN PRN 10/23/18 23:15 10/24/18 23:14 10/24/18 00:08 4 MG Allergies Allergies Allergies Coded Allergies Type Severity Reaction Last Updated Verified No Known Medication Allergies Allergy Unknown 08/26/18 Yes Physical Exam Physical Exam Constitutional: Well developed, well nourished, no acute distress, non-toxic appearance. [] HENT: Normocephalic, atraumatic, bilateral external ears normal, oropharynx moist, no oral exudates, nose normal. [] Eyes: PERRLA, EOMI, conjunctiva normal, no discharge. [] Neck: Normal range of motion, no tenderness, supple, no stridor. [] Cardiovascular: Tachycardic Lungs & Thorax: Patient noted to have increased work of breathing, sitting in tripod position, his currently on oxygen 3 L Abdomen: Bowel sounds normal, soft, no tenderness, no masses, no pulsatile masses. [] Skin: Warm, dry, no erythema, no rash. [] Back: No tenderness, no CVA tenderness. [] Extremities: No tenderness, no cyanosis, no clubbing, ROM intact, no edema. [] Neurologic: Alert and oriented X 3, normal motor function, normal sensory function, no focal deficits noted. [] Psychologic: Appears anxious Current Patient Data Vital Signs Lab Values Laboratory Tests Test 10/23/18 23:35 White Blood Count 7.1 x10^3/uL (4.0-11.0) Red Blood Count 3.55 x10^6/uL (4.30-5.70) L Hemoglobin 8.1 g/dL (13.0-17.5) L Hematocrit 25.8 % (39.0-53.0) L Mean Corpuscular Volume 73 fL (79-100) L Mean Corpuscular Hemoglobin 23 pg (25-35) L Mean Corpuscular Hemoglobin Concent 31 g/dL (31-37) Red Cell Distribution Width 20.0 % (11.5-14.5) H Platelet Count 328 x10^3/uL (140-400) Neutrophils (%) (Auto) 85 % (31-73) H Lymphocytes (%) (Auto) 6 % (24-48) L Monocytes (%) (Auto) 8 % (0-9) Eosinophils (%) (Auto) 1 % (0-3) Basophils (%) (Auto) 0 % (0-3) Neutrophils # (Auto) 6.1 x10^3/uL (1.8-7.7) Lymphocytes # (Auto) 0.4 x10^3/uL (1.0-4.8) L Monocytes # (Auto) 0.6 x10^3/uL (0.0-1.1) Eosinophils # (Auto) 0.1 x10^3/uL (0.0-0.7) Basophils # (Auto) 0.0 x10^3/uL (0.0-0.2) Segmented Neutrophils % 93 % (35-66) H Band Neutrophils % 1 % (0-9) Lymphocytes % 4 % (24-48) L Monocytes % 1 % (0-10) Eosinophils % 1 % (0-5) Platelet Estimate Adequate (ADEQUATE) Poikilocytosis Slight Microcytosis Slight Sodium Level 146 mmol/L (136-145) H Potassium Level 3.7 mmol/L (3.5-5.1) Chloride Level 104 mmol/L (98-107) Carbon Dioxide Level 36 mmol/L (21-32) H Anion Gap 6 (6-14) Blood Urea Nitrogen 17 mg/dL (8-26) Creatinine 1.0 mg/dL (0.7-1.3) Estimated GFR (Cockcroft-Gault) 92.5 BUN/Creatinine Ratio 17 (6-20) Glucose Level 136 mg/dL (70-99) H Calcium Level 9.1 mg/dL (8.5-10.1) Magnesium Level 1.9 mg/dL (1.8-2.4) Total Bilirubin 0.6 mg/dL (0.2-1.0) Aspartate Amino Transferase (AST) 24 U/L (15-37) Alanine Aminotransferase (ALT) 31 U/L (16-63) Alkaline Phosphatase 106 U/L (46-116) Creatine Kinase 153 U/L (39-308) Creatine Kinase MB (Mass) 2.3 ng/mL (0.0-3.6) Creatine Kinase MB Relative Index 1.5 % (0-4) Troponin I Quantitative < 0.017 ng/mL (0.000-0.055) WR-Iwn-X-Type Natriuretic Peptide 133 pg/mL (0-124) H Total Protein 6.3 g/dL (6.4-8.2) L Albumin 3.6 g/dL (3.4-5.0) Albumin/Globulin Ratio 1.3 (1.0-1.7) Laboratory Tests 10/23/18 23:35 Laboratory Tests 10/23/18 23:35 EKG EKG [] Radiology/Procedures Radiology/Procedures [] Course & Med Decision Making Course & Med Decision Making Pertinent Labs and Imaging studies reviewed. (See chart for details) This is a 58-year-old male patient well known to this ED for end-stage COPD who presents today complaining of shortness of breath that began at 7 PM today. Patient was admitted at [facility] and discharged yesterday, he went home, noted he had no air conditioner, he COPD flared up, he came to the ED, he was evaluated and discharged to home. He presents today complaining of coughing and shortness of breath, he states is staying with the sister who also does not have a good working air conditioner. Patient has increased work of breathing on arrival to the ED. Solu-Medrol and DuoNeb ordered. Currently requesting to be admitted stating his breathing is not back to baseline. Patient to be admitted under Dr. Hathaway-report to be given in am by Dr. Silva. Todd Disclaimer Todd Disclaimer This electronic medical record was generated, in whole or in part, using a voice recognition dictation system. Departure Departure Impression: Primary Impression: COPD exacerbation Disposition: ADMITTED INPATIENT Condition: STABLE Referrals: UNKNOWN PCP NAME (PCP) SD JON APRN Oct 23, 2018 23:53
[2018-10-23 23:57] LABS: ALBUMIN 3.6 g/dL (3.4-5.0); ALBUMIN/GLOBULIN RATIO 1.3 (1.0-1.7); MAGNESIUM 1.9 mg/dL (1.8-2.4); TOTAL BILIRUBIN 0.6 mg/dL (0.2-1.0); TOTAL PROTEIN 6.3 g/dL (6.4-8.2)
[2018-10-24] VITALS (7 sets, daily range): BP systolic 116–145; BP diastolic 75–86
[2018-10-24 00:06] LABS: % BANDS 1 % (0-9); % EOS 1 % (0-5); % LYMPHS 4 % (24-48); % MONOS 1 % (0-10); % SEGS 93 % (35-66)
[2018-10-24 00:07] LABS: PLT ESTIMATE ADEQUATE (ADEQUATE)
[2018-10-24 00:08] LABS: MICROCYTOSIS SLIGHT; POIKILOCYTOSIS SLIGHT
[2018-10-24] MEDS ORDERED: ACETAMINOPHEN 325 MG TABLET. PO PRN ×2 (00:15→02:45)
[2018-10-24] MEDS ORDERED: ONDANSETRON PF 4 MG/2 ML VIAL. IV PRN ×2 (00:15→08:30)
[2018-10-24] MEDS: MORPHINE SULFATE 4 MG/ML VIAL. IV PRN ×4 (02:31→21:50)
[2018-10-24] MEDS ORDERED: guaiFENesin ORAL 200 MG/10 ML LIQUID. PO PRN (02:45)
[2018-10-24] MEDS ORDERED: LORazepam 1 MG TABLET PO PRN (02:45)
[2018-10-24] MEDS ORDERED: NON FORMULARY ITEM (Albuterol Sulfate (Ventolin Hfa Inhaler) 2 PUFF) INH SCH (04:00)
--- NOTE | 2018-10-24 05:39 | EKG ---
[facility] [address] [place] [address] Test Date: 2018-10-23 Test Time: 23:57:22 Pat Name: KAYLA JONES Department: Room: Gender: Penciller: : 1960 Requested By: SD JON Order Number: [id number] Reading MD: Measurements Intervals [place] Rate: 107 P: 64 MO: 152 QRS: 73 QRSD: 82 T: 69 QT: 326 QTc: 440 Interpretive Statements SINUS TACHYCARDIA S1,S2,S3 PATTERN NON SPECIFIC ST-T ABNORMALITY (ELEVATION) OTHERWISE NORMAL ECG No previous ECG available for comparison
[2018-10-24] MEDS: BUDESONIDE 0.5 MG/2 ML NEBU. NEB SCH ×2 (07:57→20:00)
[2018-10-24] MEDS: IPRATRPIUM/ALBUTEROL 0.5/2.5MG 3 ML NEBU. NEB SCH ×4 (08:00→18:19)
[2018-10-24] MEDS: INSULIN LISPRO 300 UNITS/3 ML VIAL. SQ SCH ×3 (08:00→17:00)
[2018-10-24] MEDS: LIDOCAINE (700MG/PATCH) PATCH. TP SCH (08:56)
[2018-10-24] MEDS: PREGABALIN 25 MG CAPSULE PO SCH ×2 (08:56→21:21)
[2018-10-24] MEDS: ASPIRIN ENTERIC COATED 81 MG TABLET.DR. PO SCH (08:56)
[2018-10-24] MEDS: POTASSIUM CHLORIDE 20 MEQ TABLET.ER. PO SCH (08:57)
[2018-10-24] MEDS: METOCLOPRAMIDE 5 MG TABLET. PO SCH ×4 (08:57→21:21)
[2018-10-24] MEDS: predniSONE 10 MG TABLET PO SCH (08:57)
[2018-10-24] MEDS: LACTOBACILLUS RHAMNOSUS GG 1 CAPSULE. PO SCH ×2 (08:57→21:21)
[2018-10-24] MEDS: CHOLECALCIFEROL (VITAMIN D3) 5,000 UNIT CAPSULE PO SCH (08:57)
[2018-10-24] MEDS: PANTOPRAZOLE 40 MG TABLET.DR. PO SCH (08:57)
[2018-10-24] MEDS: metFORMIN 500 MG TABLET PO SCH (08:57)
[2018-10-24] MEDS: FUROSEMIDE 40 MG TABLET. PO SCH (08:57)
[2018-10-24] MEDS: AZITHROMYCIN 250 MG TABLET. PO SCH (08:57)
[2018-10-24] MEDS: RIVAROXABAN 10 MG TABLET. PO SCH (08:58)
[2018-10-24] MEDS ORDERED: NON FORMULARY ITEM (Budesonide/Formoterol Fumarate (Symbicort 160-4.5 Mcg Inhaler) 2 PUFF) IH SCH (09:00)
[2018-10-24] MEDS ORDERED: DOXYCYCLINE HYCLATE 100 MG TABLET PO SCH (09:00)
[2018-10-24] MEDS ORDERED: NON FORMULARY ITEM (Budesonide (Pulmicort) 1 VIAL) NEB SCH (09:00)
--- NOTE | 2018-10-24 09:49 | RAD ---
PORTABLE CHEST 1V Clinical indications: Shortness of air. Cough. COMPARISON: October 22, 2018. Findings: Chronic hyperinflation is seen consistent with COPD. There is emphysema within the left upper lobe. There is chronic interstitial lung disease bilaterally. However there is an increase in right lung base interstitial lung infiltrate with a new small right-sided pleural effusion and there is an increase in left lung base infiltrate without a pleural effusion. No pneumothorax is seen. The heart size, pulmonary vasculature, mediastinum and both maye are stable. Impression: COPD. Increased interstitial infiltrate within both lung bases with a small right-sided pleural effusion. Electronically signed by: Fransico Lindsey MD (10/24/2018 9:46 AM) [place] [id number]
--- NOTE | 2018-10-24 11:13 | PDOC1 ---
History and Physical Date of Admission Date of Admission DATE: 10/24/18 TIME: 11:06 Identification/Chief Complaint Chief Complaint SOa severe after missing 1 single breathing tx Source Source: Caregiver, Chart review, Patient History of Present Illness History of Present Illness 58 AA male, norbert reis here bec of advanced COPD< technically hospice candidate but he is not ready for that, Was just dcd from [place] after a week stay there for the same, then visited our ER 2 days ago butw as sent home, Then came back to our ER yesterday for the same, he missed a breathing tx and was severely SOA, CXR shows all his chronic lung changes but stable findings or no new pna, HE also has hernia that no one will operate on (tenous respi status) that causes him issues swallowing his meds, Pulmo consulted, interested in rehab, full code, otherwise, just really high chance of readmission, bec of nature of his advanced COPD Past Medical History Cardiovascular: CHF, HTN, Hyperlipidemia, Other Pulmonary: Asthma, COPD, Pneumonia, Other CENTRAL NERVOUS SYSTEM: Other GI: GERD Heme/Onc: No pertinent hx Hepatobiliary: No pertinent hx Psych: Anxiety Musculoskeletal: low back pain, Osteoarthritis Rheumatologic: No pertinent hx Infectious disease: No pertinent hx Renal/: Chronic renal insuff Endocrine: Diabetes Past Surgical History Past Surgical History: Hernia Repair Family History Family History: Heart Disease, Hypertension Social History Smoke: Quit ALCOHOL: none Drugs: None Current Medications Current Medications Current Medications Morphine Sulfate (Morphine Sulfate) 4 mg PRN Q15MIN PRN IV/SQ PAIN GREATER THAN 3/10 Last administered on 10/24/18at 00:08; Start 10/23/18 at 23:15; Stop 9 at 23:14 Methylprednisolone Sodium Succinate (SOLU-Medrol 125MG VIAL) 125 mg 1X ONCE IV Last administered on 10/24/18at 00:08; Start 10/23/18 at 23:30; Stop 10/23/18 at 23:31; Status DC Albuterol/ Ipratropium (Duoneb) 3 ml 1X ONCE NEB Last administered on 10/23/18at 23:47; Start 10/23/18 at 23:30; Stop 10/23/18 at 23:31; Status DC Ondansetron HCl (Zofran) 4 mg PRN Q8HRS PRN IV NAUSEA/VOMITING 1ST CHOICE; Start 10/24/18 at 00:15; Stop 10/25/18 at 00:14 Morphine Sulfate (Morphine Sulfate) 4 mg PRN Q2HR PRN IV SEVERE PAIN 7-10 Last administered on 10/24/18at 10:19; Start 10/24/18 at 00:15; Stop 10/25/18 at 00:14 Acetaminophen (Tylenol) 650 mg PRN Q4HRS PRN PO FEVER; Start 10/24/18 at 00:15; Stop 10/24/18 at 02:48; Status DC Albuterol/ Ipratropium (Duoneb) 3 ml RTQID NEB ; Start 10/24/18 at 08:00; Stop 10/25/18 at 07:59 Pregabalin (Lyrica) 25 mg BID PO Last administered on 10/24/18at 08:58; Start 10/24/18 at 09:00 Prednisone (Prednisone) 10 mg DAILY PO Last administered on 10/24/18at 08:58; Start 10/24/18 at 09:00 Acetaminophen (Tylenol) 650 mg PRN Q4HRS PRN PO TEMP OVER 100.4F OR MILD PAIN; Start 10/24/18 at 02:45 Aspirin (Ecotrin) 81 mg DAILYWBKFT PO Last administered on 10/24/18at 08:58; Start 10/24/18 at 08:00 Atorvastatin Calcium (Lipitor) 10 mg HS PO ; Start 10/24/18 at 21:00 Doxycycline Hyclate (Vibra-Tab) 100 mg BID PO ; Start 10/24/18 at 09:00; Status UNV Furosemide (Lasix) 40 mg DAILY PO Last administered on 10/24/18at 08:58; Start 10/24/18 at 09:00 Guaifenesin (Robitussin) 200 mg PRN Q4HRS PRN PO COUGH 1ST CHOICE; Start 10/24/18 at 02:45 Insulin Human Lispro (HumaLOG) TIDWMEALS SQ ; Start 10/24/18 at 08:00 Lidocaine (Lidoderm) 1 patch DAILY TP Last administered on 10/24/18at 08:58; Start 10/24/18 at 09:00 Lorazepam (Ativan) 1 mg PRN BID PRN PO ANXIETY / AGITATION; Start 10/24/18 at 02:45 Metformin HCl (Glucophage) 500 mg DAILYWBKFT PO Last administered on 10/24/18 08:58; Start 10/24/18 at 08:00 Metoclopramide HCl (Reglan) 5 mg QID PO Last administered on 10/24/18at 08:58; Start 10/24/18 at 09:00 Tramadol HCl (Ultram) 50 mg PRN Q6HRS PRN PO MODERATE PAIN 4-6; Start 10/24/18 at 02:45 Non-Formulary Medication (Albuterol Sulfate (Ventolin Hfa Inhaler)) 2 puff Q4HRS INH ; Start 10/24/18 at 04:00; Status UNV Azithromycin (Zithromax) 500 mg DAILY PO Last administered on 10/24/18at 08:58; Start 10/24/18 at 09:00 Non-Formulary Medication (Budesonide (Pulmicort)) 1 vial BID NEB ; Start 10/24/18 at 09:00; Status UNV Non-Formulary Medication (Budesonide/ Formoterol Fumarate (Symbicort 160-4.5 Mcg Inhaler)) 2 puff BID IH ; Start 10/24/18 at 09:00; Status UNV Vitamin D (Vitamin D3) 5,000 unit DAILY PO Last administered on 10/24/18 08:58; Start 10/24/18 at 09:00 Pantoprazole Sodium (Protonix) 40 mg DAILYAC PO Last administered on 10/24/18 08:58; Start 10/24/18 at 07:30 Potassium Chloride (Klor-Con) 20 meq DAILYWBKFT PO Last administered on 10/24/18at 08:58; Start 10/24/18 at 08:00 Rivaroxaban (Xarelto) 20 mg DAILYWBKFT PO Last administered on 10/24/18at 08:58; Start 10/24/18 at 08:00 Albuterol Sulfate (Ventolin Neb Soln) 2.5 mg PRN Q6HRS PRN NEB SHORTNESS OF BREATH; Start 10/24/18 at 03:00 Albuterol Sulfate (Ventolin Neb Soln) 2.5 mg RTQID NEB ; Start 10/25/18 at 08:00 Budesonide (Pulmicort) 0.5 mg RTBID NEB Last administered on 10/24/18at 07:58; Start 10/24/18 at 08:00 Miscellaneous (Lidoderm Patch Removal) 1 ea QHS MC ; Start 10/24/18 at 21:00 Lactobacillus Rhamnosus (Culturelle) 1 cap BID PO Last administered on 10/24/18at 08:58; Start 10/24/18 at 09:00 Ondansetron HCl (Zofran) 4 mg PRN Q6HRS PRN IV NAUSEA/VOMITING; Start 10/24/18 at 08:30 Active Scripts Active Lidocaine PATCH (Lidocaine) 1 Each Adh..patch 1 Each TP DAILY 30 Days REMOVE AFTER 12 HOURS Ativan (Lorazepam) 1 Mg Tablet 1 Mg PO PRN BID PRN Tramadol Hcl 50 Mg Tablet 50 Mg PO Q6HRS PRN Doxycycline Hyclate 100 Mg Tablet 1 Tab PO BID Humalog (Insulin Lispro) 100 Unit/1 Ml Insuln.pen 0 Units SQ TIDWMEALS 30 Days Aspirin Ec (Aspirin) 81 Mg Tablet.dr 81 Mg PO DAILYWBKFT 30 Days Cyclobenzaprine Hcl 5 Mg Tablet 5 Mg PO PRN TID PRN Tramadol Hcl 50 Mg Tablet 50 Mg PO PRN Q6HRS PRN 6 Days Guaifenesin 100 Mg/5 Ml Liquid 200 Mg PO PRN Q4HRS PRN 30 Days Tylenol (Acetaminophen) 325 Mg Tablet 650 Mg PO PRN Q4HRS PRN 10 Days Ventolin Hfa Inhaler (Albuterol Sulfate) 18 Gm Hfa.aer.ad 2 Puff INH Q4HRS Reglan (Metoclopramide Hcl) 10 Mg Tablet 0.5 Tab PO QID 30 Days Reported Tizanidine Hcl 4 Mg Tablet 4 Mg PO QID PRN Azithromycin Tablet (Azithromycin) 500 Mg Tablet 500 Mg PO DAILY Xarelto (Rivaroxaban) 20 Mg Tablet 20 Mg PO DAILY Metformin Hcl 500 Mg Tablet 500 Mg PO DAILYWBKFT Pulmicort (Budesonide) 0.25 Mg/2 Ml Ampul.neb 1 Vial NEB BID Albuterol Sulfate Neb Soln (Albuterol Sulfate) 2.5 Mg/3 Ml Vial.neb 1 Vial NEB PRN Q2HR PRN Furosemide 40 Mg Tablet 1 Tab PO DAILY Vitamin D3 (Cholecalciferol (Vitamin D3)) 5,000 Unit Tablet 5,000 Unit PO DAILY Potassium Chloride 20 Meq Tablet.er 20 Meq PO DAILY Protonix (Pantoprazole Sodium) 20 Mg Tablet.dr 1 Tab PO DAILY Atorvastatin Calcium 10 Mg Tablet 10 Mg PO HS Symbicort 160-4.5 Mcg Inhaler (Budesonide/Formoterol Fumarate) 10.2 Gm Hfa.aer.ad 2 Puff IH BID Allergies Allergies: Coded Allergies: No Known Medication Allergies (Verified Allergy, Unknown, 08/26/18) ROS Review of System weak, weight loss, fatigued, soa, chronic cough and phlegm, no fevers, no cp, no n,v,d Physical Exam General: mild distress, Other (minimal subq tissue from chronic steroid use) HEENT: Atraumatic Lungs: Normal air movement, Other (sce, wheezing mild to mod, dec BS< ) Heart: S1S2, RRR, no thrills, no rubs, no gallops Abdomen: Normal bowel sounds, Soft, No tenderness, No hepatosplenomegaly, No masses Male Genitals Exam: normal genitalia, normal prostate Vitals Vitals Vital Signs Date Time Temp Pulse Resp B/P (MAP) Pulse Ox O2 Delivery O2 Flow Rate FiO2 10/24/18 10:19 Nasal Cannula 2.0 10/24/18 08:01 100 10/24/18 07:00 97.8 96 18 132/75 (94) 97.8 Labs Labs Laboratory Tests Test 10/23/18 23:35 10/24/18 09:01 White Blood Count 7.1 x10^3/uL (4.0-11.0) Red Blood Count 3.55 x10^6/uL (4.30-5.70) Hemoglobin 8.1 g/dL (13.0-17.5) Hematocrit 25.8 % (39.0-53.0) Mean Corpuscular Volume 73 fL (79-100) Mean Corpuscular Hemoglobin 23 pg (25-35) Mean Corpuscular Hemoglobin Concent 31 g/dL (31-37) Red Cell Distribution Width 20.0 % (11.5-14.5) Platelet Count 328 x10^3/uL (140-400) Neutrophils (%) (Auto) 85 % (31-73) Lymphocytes (%) (Auto) 6 % (24-48) Monocytes (%) (Auto) 8 % (0-9) Eosinophils (%) (Auto) 1 % (0-3) Basophils (%) (Auto) 0 % (0-3) Neutrophils # (Auto) 6.1 x10^3/uL (1.8-7.7) Lymphocytes # (Auto) 0.4 x10^3/uL (1.0-4.8) Monocytes # (Auto) 0.6 x10^3/uL (0.0-1.1) Eosinophils # (Auto) 0.1 x10^3/uL (0.0-0.7) Basophils # (Auto) 0.0 x10^3/uL (0.0-0.2) Segmented Neutrophils % 93 % (35-66) Band Neutrophils % 1 % (0-9) Lymphocytes % 4 % (24-48) Monocytes % 1 % (0-10) Eosinophils % 1 % (0-5) Platelet Estimate Adequate (ADEQUATE) Poikilocytosis Slight Microcytosis Slight Sodium Level 146 mmol/L (136-145) Potassium Level 3.7 mmol/L (3.5-5.1) Chloride Level 104 mmol/L (98-107) Carbon Dioxide Level 36 mmol/L (21-32) Anion Gap 6 (6-14) Blood Urea Nitrogen 17 mg/dL (8-26) Creatinine 1.0 mg/dL (0.7-1.3) Estimated GFR (Cockcroft-Gault) 92.5 BUN/Creatinine Ratio 17 (6-20) Glucose Level 136 mg/dL (70-99) Calcium Level 9.1 mg/dL (8.5-10.1) Magnesium Level 1.9 mg/dL (1.8-2.4) Total Bilirubin 0.6 mg/dL (0.2-1.0) Aspartate Amino Transf (AST/SGOT) 24 U/L (15-37) Alanine Aminotransferase (ALT/SGPT) 31 U/L (16-63) Alkaline Phosphatase 106 U/L (46-116) Creatine Kinase 153 U/L (39-308) Creatine Kinase MB (Mass) 2.3 ng/mL (0.0-3.6) Creatine Kinase MB Relative Index 1.5 % (0-4) Troponin I Quantitative < 0.017 ng/mL (0.000-0.055) BX-Cqs-Y-Type Natriuretic Peptide 133 pg/mL (0-124) Total Protein 6.3 g/dL (6.4-8.2) Albumin 3.6 g/dL (3.4-5.0) Albumin/Globulin Ratio 1.3 (1.0-1.7) Glucose (Fingerstick) 221 mg/dL (70-99) Laboratory Tests Test 10/23/18 23:35 10/24/18 09:01 White Blood Count 7.1 x10^3/uL (4.0-11.0) Red Blood Count 3.55 x10^6/uL (4.30-5.70) Hemoglobin 8.1 g/dL (13.0-17.5) Hematocrit 25.8 % (39.0-53.0) Mean Corpuscular Volume 73 fL (79-100) Mean Corpuscular Hemoglobin 23 pg (25-35) Mean Corpuscular Hemoglobin Concent 31 g/dL (31-37) Red Cell Distribution Width 20.0 % (11.5-14.5) Platelet Count 328 x10^3/uL (140-400) Neutrophils (%) (Auto) 85 % (31-73) Lymphocytes (%) (Auto) 6 % (24-48) Monocytes (%) (Auto) 8 % (0-9) Eosinophils (%) (Auto) 1 % (0-3) Basophils (%) (Auto) 0 % (0-3) Neutrophils # (Auto) 6.1 x10^3/uL (1.8-7.7) Lymphocytes # (Auto) 0.4 x10^3/uL (1.0-4.8) Monocytes # (Auto) 0.6 x10^3/uL (0.0-1.1) Eosinophils # (Auto) 0.1 x10^3/uL (0.0-0.7) Basophils # (Auto) 0.0 x10^3/uL (0.0-0.2) Segmented Neutrophils % 93 % (35-66) Band Neutrophils % 1 % (0-9) Lymphocytes % 4 % (24-48) Monocytes % 1 % (0-10) Eosinophils % 1 % (0-5) Platelet Estimate Adequate (ADEQUATE) Poikilocytosis Slight Microcytosis Slight Sodium Level 146 mmol/L (136-145) Potassium Level 3.7 mmol/L (3.5-5.1) Chloride Level 104 mmol/L (98-107) Carbon Dioxide Level 36 mmol/L (21-32) Anion Gap 6 (6-14) Blood Urea Nitrogen 17 mg/dL (8-26) Creatinine 1.0 mg/dL (0.7-1.3) Estimated GFR (Cockcroft-Gault) 92.5 BUN/Creatinine Ratio 17 (6-20) Glucose Level 136 mg/dL (70-99) Calcium Level 9.1 mg/dL (8.5-10.1) Magnesium Level 1.9 mg/dL (1.8-2.4) Total Bilirubin 0.6 mg/dL (0.2-1.0) Aspartate Amino Transf (AST/SGOT) 24 U/L (15-37) Alanine Aminotransferase (ALT/SGPT) 31 U/L (16-63) Alkaline Phosphatase 106 U/L (46-116) Creatine Kinase 153 U/L (39-308) Creatine Kinase MB (Mass) 2.3 ng/mL (0.0-3.6) Creatine Kinase MB Relative Index 1.5 % (0-4) Troponin I Quantitative < 0.017 ng/mL (0.000-0.055) WX-Ttf-Y-Type Natriuretic Peptide 133 pg/mL (0-124) Total Protein 6.3 g/dL (6.4-8.2) Albumin 3.6 g/dL (3.4-5.0) Albumin/Globulin Ratio 1.3 (1.0-1.7) Glucose (Fingerstick) 221 mg/dL (70-99) VTE Prophylaxis Ordered VTE Prophylaxis Devices: Yes VTE Pharmacological Prophylaxi: Yes Assessment/Plan Assessment/Plan 1. Advanced copd with freq hospitalizations, not ready for hospice, COPD flare, no HCAP on CXR 2. Distant tobaccoism 3. Weight loss 4. Steroid induced skin dermatitis 5. 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 Microcytic anemia, stable PLAN: 2 [place] PUlmo consulted, SW - rehab needs NEbs,cough med, PO pred if at all, hold off abx I reconciled home meds PT.,OT since he is interested rehab Full code TEchnically meets hospice criteria - but he not ready in past conversations with him RAI DURANT MD Oct 24, 2018 11:13
[2018-10-24] MEDS ORDERED: TEMAZEPAM 7.5 MG CAPSULE PO PRN (11:15)
[2018-10-24] MEDS ORDERED: MAG HYDROX/ALUMINUM HYD/SIMETH 30 ML ORAL.SUSP PO PRN (11:15)
--- NOTE | 2018-10-24 12:04 | CONS ---
DATE OF CONSULTATION: ATTENDING PHYSICIAN: Dar Hathaway MD REASON FOR CONSULTATION: Respiratory failure. HISTORY OF PRESENT ILLNESS: The patient is very well known to us. He is a 58-year-old male who has end-stage chronic obstructive pulmonary disease. 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 He very frequently admitted to our hospital as well as [place]. He was just recently discharged from [facility] a week ago. The patient has visited the ER twice since then. He came to our Emergency Room with some shortness of breath. He said he has been belching and bloated as well. He has not had a BM for 2 days. He remains on oxygen at 3 liters. His chest x-ray was reviewed. There has been no change since his last films. 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 Consultation requested for further evaluation and management. PAST MEDICAL HISTORY: Significant for hypertension, history of end-stage COPD, history of chronic respiratory failure, pneumonias, osteoarthritis, chronic renal insufficiency. PAST SURGICAL HISTORY: Including hernia repair. FAMILY HISTORY: Heart disease and hypertension. SOCIAL HISTORY: No longer smokes cigarettes, but has a long history of tobacco use. ALLERGIES: None. MEDICATIONS: Reviewed as listed in MRAD including antibiotic, Zithromax and DuoNebs. REVIEW OF SYSTEMS: Ten-point system obtained. Pertinent positives discussed in my history of present illness, otherwise noncontributory. All systems that were negative were reviewed as well. PHYSICAL EXAMINATION: VITAL SIGNS: Reviewed, pulse oximetry 100% on 3 liters. NECK: Supple. LUNGS: With diminished breath sounds bilaterally. CARDIOVASCULAR: With a regular rate. ABDOMEN: Soft, distended. EXTREMITIES: With no pitting edema. LABORATORY DATA: Reviewed. White cell count 7.1, hemoglobin 8.1 and platelets are 328. BUN 17, creatinine 1.0. IMPRESSION: 1. Acute on chronic respiratory failure secondary to multifactorial etiologies including underlying end-stage chronic obstructive pulmonary disease with exacerbation and increased abdominal distention, bloating, and belching also contributing to his lung condition. Unfortunately, there is not much to do from a lung standpoint. He has end-stage chronic obstructive pulmonary disease. 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 He was referred to for bullectomy and also for lung transplant evaluation, but was denied. 2. Abnormal chest x-ray with giant bullous lung disease on the left and unchanged mild interstitial infiltrate at right base. No significant change. 3. H/o ? PE at [facility]. f/u scan at [facility] on previous admissions with no Pulmonary embolism. Has been on Xarelto. RECOMMENDATIONS: 1. Discussed with RN and RT. Continue with present oxygen at 3 liters. 2. The patient has home CPAP. I would recommend evaluating him for home Trilogy ventilator. 3. Continue present DuoNebs. 4. Minimize the use of narcotics as it would slow down his bowels. 5. PCP to address his constipation and bloating. 6. The patient on Xarelto. Continue per pharmacy. 7. We will follow along with you. Would also recommend to have palliative care again to discuss hospice evaluation. VIN MEAD MD DR: ALTAGRACIA/efrain JOB#: [id number] / [id number] JOHANNE
[2018-10-24] MEDS: guaiFENesin ORAL 200 MG/10 ML LIQUID. PO SCH ×4 (12:05→21:21)
[2018-10-24] MEDS: POLYETHYLENE GLYCOL 3350 17 GM PACKET. PO PRN (12:06)
--- NOTE | 2018-10-24 14:58 | NUR ---
SW consulted for rehab and trilogy. Chart reviewed and d/w RN. Pt is known to SW from previous multiple visits. Pt had declined to work with PT/OT today. SW requested for ABG test to eval trilogy needs.
[2018-10-24] MEDS: PATCH REMOVAL. MC SCH (21:00)
[2018-10-24] MEDS: ATORVASTATIN CALCIUM 10 MG TABLET. PO SCH (21:21)
[2018-10-25] VITALS (7 sets, daily range): BP systolic 113–134; BP diastolic 69–89
[2018-10-25 05:40] LABS: BASO % 0 % (0-3); EOS # 0.1 x10^3/uL (0.0-0.7); EOS % 1 % (0-3); HEMATOCRIT 25.4 % (39.0-53.0); HEMOGLOBIN 7.9 g/dL (13.0-17.5); LYMPH # 0.3 x10^3/uL (1.0-4.8); LYMPH % 7 % (24-48); MEAN CORPUSCULAR HEMOGLOBIN 22 pg (25-35); MEAN CORPUSCULAR HGB CONC 31 g/dL (31-37); MEAN CORPUSCULAR VOLUME 72 fL (79-100); MONO # 0.4 x10^3/uL (0.0-1.1); MONO % 9 % (0-9); NEUT # 3.9 x10^3/uL (1.8-7.7); NEUT % 82 % (31-73); PLATELET COUNT 329 x10^3/uL (140-400); RED BLOOD COUNT 3.53 x10^6/uL (4.30-5.70); RED CELL DISTRIBUTION WIDTH 19.9 % (11.5-14.5); WHITE BLOOD COUNT 4.8 x10^3/uL (4.0-11.0)
[2018-10-25 06:05] LABS: CALCIUM 9.6 mg/dL (8.5-10.1); CREATININE 0.8 mg/dL (0.7-1.3); GFR 119.7; POTASSIUM 3.9 mmol/L (3.5-5.1)
[2018-10-25] MEDS ORDERED: PANTOPRAZOLE 40 MG TABLET.DR. PO SCH (07:30)
[2018-10-25] MEDS: BUDESONIDE 0.5 MG/2 ML NEBU. NEB SCH ×2 (07:32→19:56)
[2018-10-25] MEDS: IPRATRPIUM/ALBUTEROL 0.5/2.5MG 3 ML NEBU. NEB SCH ×3 (07:32→19:57)
[2018-10-25] MEDS: PANTOPRAZOLE 40 MG TABLET.DR. PO SCH (07:54)
[2018-10-25] MEDS: METOCLOPRAMIDE 5 MG TABLET. PO SCH ×4 (08:00→20:55)
[2018-10-25] MEDS: traMADol 50 MG TABLET PO PRN (08:00)
[2018-10-25] MEDS ORDERED: ALBUTEROL SULFATE 2.5 MG/3 ML NEBU. NEB SCH (08:00)
[2018-10-25] MEDS: INSULIN LISPRO 300 UNITS/3 ML VIAL. SQ SCH ×3 (08:00→16:53)
[2018-10-25] MEDS: ASPIRIN ENTERIC COATED 81 MG TABLET.DR. PO SCH (08:01)
[2018-10-25] MEDS: metFORMIN 500 MG TABLET PO SCH (08:01)
[2018-10-25] MEDS: POTASSIUM CHLORIDE 20 MEQ TABLET.ER. PO SCH (08:01)
[2018-10-25] MEDS: RIVAROXABAN 10 MG TABLET. PO SCH (08:02)
[2018-10-25] MEDS: LACTOBACILLUS RHAMNOSUS GG 1 CAPSULE. PO SCH ×2 (09:00→20:57)
[2018-10-25] MEDS: CHOLECALCIFEROL (VITAMIN D3) 5,000 UNIT CAPSULE PO SCH (10:19)
[2018-10-25] MEDS: predniSONE 10 MG TABLET PO SCH (10:19)
[2018-10-25] MEDS: AZITHROMYCIN 250 MG TABLET. PO SCH (10:19)
[2018-10-25] MEDS: FUROSEMIDE 40 MG TABLET. PO SCH (10:20)
[2018-10-25] MEDS: PREGABALIN 25 MG CAPSULE PO SCH ×2 (10:20→20:56)
[2018-10-25] MEDS: guaiFENesin ORAL 200 MG/10 ML LIQUID. PO SCH ×4 (10:20→20:56)
[2018-10-25] MEDS: LIDOCAINE (700MG/PATCH) PATCH. TP SCH (10:21)
--- NOTE | 2018-10-25 10:24 | PDOC ---
PROGRESS NOTES Chief Complaint Chief Complaint 1. Advanced copd with freq hospitalizations, not ready for hospice, COPD flare, no HCAP on CXR 2. Distant tobaccoism 3. Weight loss 4. Steroid induced skin dermatitis 5. 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 Microcytic anemia, stable History of Present Illness History of Present Illness soa cant go to bathroom still coughing freq We need ABG for trilogy set up HE refused pt.ot Feels gassy and constipated - abd tympanitic with his known hernia PLAN: GAs x and MOM now Start bowel regimen ABG by RT to help with trilogy set up Dw SW Start montelukast qhs Vitals Vitals Vital Signs Date Time Temp Pulse Resp B/P (MAP) Pulse Ox O2 Delivery O2 Flow Rate FiO2 10/25/18 08:04 Nasal Cannula 3.0 10/25/18 07:35 97 10/25/18 07:00 93 18 134/89 (104) 10/24/18 23:00 98.0 98.0 Physical Exam General: Alert, Cooperative, mild distress, Other (minimal subq tissue from chronic steroid use) Heart: Regular rate, Normal S1 Lungs: Clear, Wheezing, Other Abdomen: Normal bowel sounds, Soft, No tenderness, No hepatosplenomegaly, No masses Extremities: No clubbing, No cyanosis, No edema, No tenderness/swelling, Other (steroid skin, minimal subQ) Skin: No rashes, No breakdown Labs LABS Laboratory Tests Test 10/24/18 20:48 10/25/18 04:25 Glucose (Fingerstick) 148 mg/dL (70-99) White Blood Count 4.8 x10^3/uL (4.0-11.0) Red Blood Count 3.53 x10^6/uL (4.30-5.70) Hemoglobin 7.9 g/dL (13.0-17.5) Hematocrit 25.4 % (39.0-53.0) Mean Corpuscular Volume 72 fL (79-100) Mean Corpuscular Hemoglobin 22 pg (25-35) Mean Corpuscular Hemoglobin Concent 31 g/dL (31-37) Red Cell Distribution Width 19.9 % (11.5-14.5) Platelet Count 329 x10^3/uL (140-400) Neutrophils (%) (Auto) 82 % (31-73) Lymphocytes (%) (Auto) 7 % (24-48) Monocytes (%) (Auto) 9 % (0-9) Eosinophils (%) (Auto) 1 % (0-3) Basophils (%) (Auto) 0 % (0-3) Neutrophils # (Auto) 3.9 x10^3/uL (1.8-7.7) Lymphocytes # (Auto) 0.3 x10^3/uL (1.0-4.8) Monocytes # (Auto) 0.4 x10^3/uL (0.0-1.1) Eosinophils # (Auto) 0.1 x10^3/uL (0.0-0.7) Basophils # (Auto) 0.0 x10^3/uL (0.0-0.2) Sodium Level 141 mmol/L (136-145) Potassium Level 3.9 mmol/L (3.5-5.1) Chloride Level 100 mmol/L (98-107) Carbon Dioxide Level 36 mmol/L (21-32) Anion Gap 5 (6-14) Blood Urea Nitrogen 20 mg/dL (8-26) Creatinine 0.8 mg/dL (0.7-1.3) Estimated GFR (Cockcroft-Gault) 119.7 Glucose Level 122 mg/dL (70-99) Calcium Level 9.6 mg/dL (8.5-10.1) Review of Systems Review of Systems soa, cough, weak, no cp, constipated, no abd pain, gassy, the rest 14 pt neg Assessment and Plan Assessmemt and Plan Problems Medical Problems: (1) Microcytic anemia Status: Chronic Comment Review of Relevant I have reviewed the following items franki (where applicable) has been applied. Labs Laboratory Tests Test 10/23/18 23:35 10/24/18 09:01 10/24/18 20:48 10/25/18 04:25 White Blood Count 7.1 x10^3/uL (4.0-11.0) 4.8 x10^3/uL (4.0-11.0) Red Blood Count 3.55 x10^6/uL (4.30-5.70) 3.53 x10^6/uL (4.30-5.70) Hemoglobin 8.1 g/dL (13.0-17.5) 7.9 g/dL (13.0-17.5) Hematocrit 25.8 % (39.0-53.0) 25.4 % (39.0-53.0) Mean Corpuscular Volume 73 fL (79-100) 72 fL (79-100) Mean Corpuscular Hemoglobin 23 pg (25-35) 22 pg (25-35) Mean Corpuscular Hemoglobin Concent 31 g/dL (31-37) 31 g/dL (31-37) Red Cell Distribution Width 20.0 % (11.5-14.5) 19.9 % (11.5-14.5) Platelet Count 328 x10^3/uL (140-400) 329 x10^3/uL (140-400) Neutrophils (%) (Auto) 85 % (31-73) 82 % (31-73) Lymphocytes (%) (Auto) 6 % (24-48) 7 % (24-48) Monocytes (%) (Auto) 8 % (0-9) 9 % (0-9) Eosinophils (%) (Auto) 1 % (0-3) 1 % (0-3) Basophils (%) (Auto) 0 % (0-3) 0 % (0-3) Neutrophils # (Auto) 6.1 x10^3/uL (1.8-7.7) 3.9 x10^3/uL (1.8-7.7) Lymphocytes # (Auto) 0.4 x10^3/uL (1.0-4.8) 0.3 x10^3/uL (1.0-4.8) Monocytes # (Auto) 0.6 x10^3/uL (0.0-1.1) 0.4 x10^3/uL (0.0-1.1) Eosinophils # (Auto) 0.1 x10^3/uL (0.0-0.7) 0.1 x10^3/uL (0.0-0.7) Basophils # (Auto) 0.0 x10^3/uL (0.0-0.2) 0.0 x10^3/uL (0.0-0.2) Segmented Neutrophils % 93 % (35-66) Band Neutrophils % 1 % (0-9) Lymphocytes % 4 % (24-48) Monocytes % 1 % (0-10) Eosinophils % 1 % (0-5) Platelet Estimate Adequate (ADEQUATE) Poikilocytosis Slight Microcytosis Slight Sodium Level 146 mmol/L (136-145) 141 mmol/L (136-145) Potassium Level 3.7 mmol/L (3.5-5.1) 3.9 mmol/L (3.5-5.1) Chloride Level 104 mmol/L (98-107) 100 mmol/L (98-107) Carbon Dioxide Level 36 mmol/L (21-32) 36 mmol/L (21-32) Anion Gap 6 (6-14) 5 (6-14) Blood Urea Nitrogen 17 mg/dL (8-26) 20 mg/dL (8-26) Creatinine 1.0 mg/dL (0.7-1.3) 0.8 mg/dL (0.7-1.3) Estimated GFR (Cockcroft-Gault) 92.5 119.7 BUN/Creatinine Ratio 17 (6-20) Glucose Level 136 mg/dL (70-99) 122 mg/dL (70-99) Calcium Level 9.1 mg/dL (8.5-10.1) 9.6 mg/dL (8.5-10.1) Magnesium Level 1.9 mg/dL (1.8-2.4) Total Bilirubin 0.6 mg/dL (0.2-1.0) Aspartate Amino Transf (AST/SGOT) 24 U/L (15-37) Alanine Aminotransferase (ALT/SGPT) 31 U/L (16-63) Alkaline Phosphatase 106 U/L (46-116) Creatine Kinase 153 U/L (39-308) Creatine Kinase MB (Mass) 2.3 ng/mL (0.0-3.6) Creatine Kinase MB Relative Index 1.5 % (0-4) Troponin I Quantitative < 0.017 ng/mL (0.000-0.055) BG-Xyx-B-Type Natriuretic Peptide 133 pg/mL (0-124) Total Protein 6.3 g/dL (6.4-8.2) Albumin 3.6 g/dL (3.4-5.0) Albumin/Globulin Ratio 1.3 (1.0-1.7) Glucose (Fingerstick) 221 mg/dL (70-99) 148 mg/dL (70-99) Laboratory Tests Test 10/24/18 20:48 10/25/18 04:25 Glucose (Fingerstick) 148 mg/dL (70-99) White Blood Count 4.8 x10^3/uL (4.0-11.0) Red Blood Count 3.53 x10^6/uL (4.30-5.70) Hemoglobin 7.9 g/dL (13.0-17.5) Hematocrit 25.4 % (39.0-53.0) Mean Corpuscular Volume 72 fL (79-100) Mean Corpuscular Hemoglobin 22 pg (25-35) Mean Corpuscular Hemoglobin Concent 31 g/dL (31-37) Red Cell Distribution Width 19.9 % (11.5-14.5) Platelet Count 329 x10^3/uL (140-400) Neutrophils (%) (Auto) 82 % (31-73) Lymphocytes (%) (Auto) 7 % (24-48) Monocytes (%) (Auto) 9 % (0-9) Eosinophils (%) (Auto) 1 % (0-3) Basophils (%) (Auto) 0 % (0-3) Neutrophils # (Auto) 3.9 x10^3/uL (1.8-7.7) Lymphocytes # (Auto) 0.3 x10^3/uL (1.0-4.8) Monocytes # (Auto) 0.4 x10^3/uL (0.0-1.1) Eosinophils # (Auto) 0.1 x10^3/uL (0.0-0.7) Basophils # (Auto) 0.0 x10^3/uL (0.0-0.2) Sodium Level 141 mmol/L (136-145) Potassium Level 3.9 mmol/L (3.5-5.1) Chloride Level 100 mmol/L (98-107) Carbon Dioxide Level 36 mmol/L (21-32) Anion Gap 5 (6-14) Blood Urea Nitrogen 20 mg/dL (8-26) Creatinine 0.8 mg/dL (0.7-1.3) Estimated GFR (Cockcroft-Gault) 119.7 Glucose Level 122 mg/dL (70-99) Calcium Level 9.6 mg/dL (8.5-10.1) Medications Current Medications Morphine Sulfate (Morphine Sulfate) 4 mg PRN Q15MIN PRN IV/SQ PAIN GREATER THAN 3/10 Last administered on 10/24/18at 00:08; Start 10/23/18 at 23:15; Stop 10/24/18 at 23:14; Status DC Methylprednisolone Sodium Succinate (SOLU-Medrol 125MG VIAL) 125 mg 1X ONCE IV Last administered on 10/24/18at 00:08; Start 10/23/18 at 23:30; Stop 10/23/18 at 23:31; Status DC Albuterol/ Ipratropium (Duoneb) 3 ml 1X ONCE NEB Last administered on 10/23/18at 23:47; Start 10/23/18 at 23:30; Stop 10/23/18 at 23:31; Status DC Ondansetron HCl (Zofran) 4 mg PRN Q8HRS PRN IV NAUSEA/VOMITING 1ST CHOICE; Start 10/24/18 at 00:15; Stop 10/25/18 at 00:14; Status DC Morphine Sulfate (Morphine Sulfate) 4 mg PRN Q2HR PRN IV SEVERE PAIN 7-10 Last administered on 10/24/18at 21:50; Start 10/24/18 at 00:15; Stop 10/25/18 at 00:14; Status DC Acetaminophen (Tylenol) 650 mg PRN Q4HRS PRN PO FEVER; Start 10/24/18 at 00:15; Stop 10/24/18 at 02:48; Status DC Albuterol/ Ipratropium (Duoneb) 3 ml RTQID NEB Last administered on 10/25/18at 0 7:32; Start 10/24/18 at 08:00; Stop 10/25/18 at 07:59; Status DC Pregabalin (Lyrica) 25 mg BID PO Last administered on 10/24/18at 21:24; Start 10/24/18 at 09:00 Prednisone (Prednisone) 10 mg DAILY PO Last administered on 10/24/18at 08:58; Start 10/24/18 at 09:00 Acetaminophen (Tylenol) 650 mg PRN Q4HRS PRN PO TEMP OVER 100.4F OR MILD PAIN; Start 10/24/18 at 02:45 Aspirin (Ecotrin) 81 mg DAILYWBKFT PO Last administered on 10/25/18 08:04; Start 10/24/18 at 08:00 Atorvastatin Calcium (Lipitor) 10 mg HS PO Last administered on 10/24/18at 21:24; Start 10/24/18 at 21:00 Doxycycline Hyclate (Vibra-Tab) 100 mg BID PO ; Start 10/24/18 at 09:00; Status UNV Furosemide (Lasix) 40 mg DAILY PO Last administered on 10/24/18at 08:58; Start 10/24/18 at 09:00 Guaifenesin (Robitussin) 200 mg PRN Q4HRS PRN PO COUGH 1ST CHOICE; Start 10/24/18 at 02:45; Stop 10/24/18 at 11:15; Status DC Insulin Human Lispro (HumaLOG) TIDWMEALS SQ ; Start 10/24/18 at 08:00 Lidocaine (Lidoderm) 1 patch DAILY TP Last administered on 10/24/18 08:58; Start 10/24/18 at 09:00 Lorazepam (Ativan) 1 mg PRN BID PRN PO ANXIETY / AGITATION Last administered on 10/24/18 12:06; Start 10/24/18 at 02:45 Metformin HCl (Glucophage) 500 mg DAILYWBKFT PO Last administered on 10/25/18 08:04; Start 10/24/18 at 08:00 Metoclopramide HCl (Reglan) 5 mg QID PO Last administered on 10/25/18 08:04; Start 10/24/18 at 09:00 Tramadol HCl (Ultram) 50 mg PRN Q6HRS PRN PO MODERATE PAIN 4-6 Last administered on 10/25/18 08:04; Start 10/24/18 at 02:45 Non-Formulary Medication (Albuterol Sulfate (Ventolin Hfa Inhaler)) 2 puff Q4HRS INH ; Start 10/24/18 at 04:00; Status UNV Azithromycin (Zithromax) 500 mg DAILY PO Last administered on 10/24/18 08:58; Start 10/24/18 at 09:00 Non-Formulary Medication (Budesonide (Pulmicort)) 1 vial BID NEB ; Start 10/24/18 at 09:00; Status UNV Non-Formulary Medication (Budesonide/ Formoterol Fumarate (Symbicort 160-4.5 Mcg Inhaler)) 2 puff BID IH ; Start 10/24/18 at 09:00; Status UNV Vitamin D (Vitamin D3) 5,000 unit DAILY PO Last administered on 10/24/18at 08:58; Start 10/24/18 at 09:00 Pantoprazole Sodium (Protonix) 40 mg DAILYAC PO Last administered on 10/25/18at 08:04; Start 10/24/18 at 07:30 Potassium Chloride (Klor-Con) 20 meq DAILYWBKFT PO Last administered on 10/25/18at 08:04; Start 10/24/18 at 08:00 Rivaroxaban (Xarelto) 20 mg DAILYWBKFT PO Last administered on 10/25/18at 08:04; Start 10/24/18 at 08:00 Albuterol Sulfate (Ventolin Neb Soln) 2.5 mg PRN Q6HRS PRN NEB SHORTNESS OF BREATH; Start 10/24/18 at 03:00 Albuterol Sulfate (Ventolin Neb Soln) 2.5 mg RTQID NEB ; Start 10/25/18 at 08:00 Budesonide (Pulmicort) 0.5 mg RTBID NEB Last administered on 10/25/18at 07:32; Start 10/24/18 at 08:00 Miscellaneous (Lidoderm Patch Removal) 1 ea QHS MC Last administered on 10/24/18at 21:50; Start 10/24/18 at 21:00 Lactobacillus Rhamnosus (Culturelle) 1 cap BID PO Last administered on 10/24/18at 21:24; Start 10/24/18 at 09:00 Ondansetron HCl (Zofran) 4 mg PRN Q6HRS PRN IV NAUSEA/VOMITING; Start 10/24/18 at 08:30 Pantoprazole Sodium (Protonix) 40 mg DAILYAC PO ; Start 10/25/18 at 07:30; Stop 10/24/18 at 11:18; Status DC Al Hydroxide/Mg Hydroxide (Mylanta Plus Xs) 30 ml PRN Q2HR PRN PO HEARTBURN / GAS; Start 10/24/18 at 11:15 Temazepam (Restoril) 7.5 mg PRN QHS PRN PO INSOMNIA; Start 10/24/18 at 11:15 Guaifenesin (Robitussin) 200 mg QID PO Last administered on 10/24/18at 21:24; Start 10/24/18 at 11:15 Polyethylene Glycol (miraLAX PACKET) 17 gm PRN DAILY PRN PO CONSTIPATION Last administered on 10/24/18at 12:06; Start 10/24/18 at 12:00 Montelukast Sodium (Singulair) 10 mg QHS PO ; Start 10/25/18 at 21:00 Active Scripts Active Lidocaine PATCH (Lidocaine) 1 Each Adh..patch 1 Each TP DAILY 30 Days REMOVE AFTER 12 HOURS Ativan (Lorazepam) 1 Mg Tablet 1 Mg PO PRN BID PRN Tramadol Hcl 50 Mg Tablet 50 Mg PO Q6HRS PRN Doxycycline Hyclate 100 Mg Tablet 1 Tab PO BID Humalog (Insulin Lispro) 100 Unit/1 Ml Insuln.pen 0 Units SQ TIDWMEALS 30 Days Aspirin Ec (Aspirin) 81 Mg Tablet.dr 81 Mg PO DAILYWBKFT 30 Days Cyclobenzaprine Hcl 5 Mg Tablet 5 Mg PO PRN TID PRN Tramadol Hcl 50 Mg Tablet 50 Mg PO PRN Q6HRS PRN 6 Days Guaifenesin 100 Mg/5 Ml Liquid 200 Mg PO PRN Q4HRS PRN 30 Days Tylenol (Acetaminophen) 325 Mg Tablet 650 Mg PO PRN Q4HRS PRN 10 Days Ventolin Hfa Inhaler (Albuterol Sulfate) 18 Gm Hfa.aer.ad 2 Puff INH Q4HRS Reglan (Metoclopramide Hcl) 10 Mg Tablet 0.5 Tab PO QID 30 Days Reported Tizanidine Hcl 4 Mg Tablet 4 Mg PO QID PRN Azithromycin Tablet (Azithromycin) 500 Mg Tablet 500 Mg PO DAILY Xarelto (Rivaroxaban) 20 Mg Tablet 20 Mg PO DAILY Metformin Hcl 500 Mg Tablet 500 Mg PO DAILYWBKFT Pulmicort (Budesonide) 0.25 Mg/2 Ml Ampul.neb 1 Vial NEB BID Albuterol Sulfate Neb Soln (Albuterol Sulfate) 2.5 Mg/3 Ml Vial.neb 1 Vial NEB PRN Q2HR PRN Furosemide 40 Mg Tablet 1 Tab PO DAILY Vitamin D3 (Cholecalciferol (Vitamin D3)) 5,000 Unit Tablet 5,000 Unit PO DAILY Potassium Chloride 20 Meq Tablet.er 20 Meq PO DAILY Protonix (Pantoprazole Sodium) 20 Mg Tablet.dr 1 Tab PO DAILY Atorvastatin Calcium 10 Mg Tablet 10 Mg PO HS Symbicort 160-4.5 Mcg Inhaler (Budesonide/Formoterol Fumarate) 10.2 Gm Hfa.aer.ad 2 Puff IH BID Vitals/I & O Vital Sign - Last 24 Hours 10/24/18 10/24/18 10/24/18 10/24/18 10:19 11:00 11:46 11:55 Temp 98.1 98.1 Pulse 109 Resp 23 B/P (MAP) 145/83 (103) Pulse Ox 99 O2 Delivery Nasal Cannula Nasal Cannula Nasal Cannula Nasal Cannula O2 Flow Rate 2.0 3.0 3.0 3.0 10/24/18 10/24/18 10/24/18 10/24/18 15:00 15:33 18:20 19:00 Temp 98.3 98.0 98.3 98.0 Pulse 94 104 Resp 19 19 B/P (MAP) 123/80 (94) 116/86 (96) Pulse Ox 97 94 O2 Delivery Nasal Cannula Nasal Cannula Nasal Cannula Nasal Cannula O2 Flow Rate 2.0 3.0 3.0 2.0 10/24/18 10/24/18 10/24/18 10/24/18 20:00 21:50 22:25 23:00 Temp 98.0 98.0 Pulse 101 Resp 19 B/P (MAP) 121/80 (94) Pulse Ox 3 3 96 O2 Delivery Nasal Cannula Nasal Cannula Nasal Cannula Nasal Cannula O2 Flow Rate 3.0 2.0 10/25/18 10/25/18 10/25/18 10/25/18 03:00 04:00 07:00 07:34 Pulse 91 91 93 Resp 19 19 18 B/P (MAP) 117/75 (89) 117/75 (89) 134/89 (104) Pulse Ox 97 97 97 97 O2 Delivery Nasal Cannula Nasal Cannula Room Air Nasal Cannula O2 Flow Rate 2.0 2.0 3.0 10/25/18 10/25/18 10/25/18 07:35 07:45 08:04 Pulse Ox 97 O2 Delivery Nasal Cannula Nasal Cannula Nasal Cannula O2 Flow Rate 3.0 3.0 3.0 Intake and Output 910/24/18 10/25/18 14:59 22:59 06:59 Intake Total 50 ml Output Total 1200 ml 1150 ml Balance -1200 ml -1150 ml 50 ml RAI DURANT MD Oct 25, 2018 10:24
[2018-10-25] MEDS ORDERED: SIMETHICONE 80 MG TAB.CHEW PO PRN (10:30)
[2018-10-25] MEDS ORDERED: MAGNESIUM HYDROXIDE 2,400 MG/30 ML ORAL.SUSP. PO ONE (10:30)
[2018-10-25] MEDS ORDERED: MAGNESIUM HYDROXIDE 2,400 MG/30 ML ORAL.SUSP. PO PRN (10:30)
[2018-10-25] MEDS: POLYETHYLENE GLYCOL 3350 17 GM PACKET. PO SCH (11:00)
[2018-10-25] MEDS: DOCUSATE SODIUM 100 MG CAPSULE. PO SCH (11:00)
--- NOTE | 2018-10-25 11:14 | PDOC ---
PULMONARY PROGRESS NOTES Subjective still constipated no increase soa Vitals Vital Signs Date Time Temp Pulse Resp B/P (MAP) Pulse Ox O2 Delivery O2 Flow Rate FiO2 10/25/18 10:25 Nasal Cannula 3.0 10/25/18 07:35 97 10/25/18 07:00 93 18 134/89 (104) 10/24/18 23:00 98.0 98.0 General: Alert, No acute distress Lungs: Other (poor air entry) Cardiovascular: S1, S2 Abdomen: Soft, Non-tender Neuro Exam: Alert Extremities: No Edema, Other Skin: Warm Labs Laboratory Tests Test 10/23/18 23:35 10/24/18 09:01 10/24/18 20:48 10/25/18 04:25 White Blood Count 7.1 x10^3/uL (4.0-11.0) 4.8 x10^3/uL (4.0-11.0) Red Blood Count 3.55 x10^6/uL (4.30-5.70) 3.53 x10^6/uL (4.30-5.70) Hemoglobin 8.1 g/dL (13.0-17.5) 7.9 g/dL (13.0-17.5) Hematocrit 25.8 % (39.0-53.0) 25.4 % (39.0-53.0) Mean Corpuscular Volume 73 fL (79-100) 72 fL (79-100) Mean Corpuscular Hemoglobin 23 pg (25-35) 22 pg (25-35) Mean Corpuscular Hemoglobin Concent 31 g/dL (31-37) 31 g/dL (31-37) Red Cell Distribution Width 20.0 % (11.5-14.5) 19.9 % (11.5-14.5) Platelet Count 328 x10^3/uL (140-400) 329 x10^3/uL (140-400) Neutrophils (%) (Auto) 85 % (31-73) 82 % (31-73) Lymphocytes (%) (Auto) 6 % (24-48) 7 % (24-48) Monocytes (%) (Auto) 8 % (0-9) 9 % (0-9) Eosinophils (%) (Auto) 1 % (0-3) 1 % (0-3) Basophils (%) (Auto) 0 % (0-3) 0 % (0-3) Neutrophils # (Auto) 6.1 x10^3/uL (1.8-7.7) 3.9 x10^3/uL (1.8-7.7) Lymphocytes # (Auto) 0.4 x10^3/uL (1.0-4.8) 0.3 x10^3/uL (1.0-4.8) Monocytes # (Auto) 0.6 x10^3/uL (0.0-1.1) 0.4 x10^3/uL (0.0-1.1) Eosinophils # (Auto) 0.1 x10^3/uL (0.0-0.7) 0.1 x10^3/uL (0.0-0.7) Basophils # (Auto) 0.0 x10^3/uL (0.0-0.2) 0.0 x10^3/uL (0.0-0.2) Segmented Neutrophils % 93 % (35-66) Band Neutrophils % 1 % (0-9) Lymphocytes % 4 % (24-48) Monocytes % 1 % (0-10) Eosinophils % 1 % (0-5) Platelet Estimate Adequate (ADEQUATE) Poikilocytosis Slight Microcytosis Slight Sodium Level 146 mmol/L (136-145) 141 mmol/L (136-145) Potassium Level 3.7 mmol/L (3.5-5.1) 3.9 mmol/L (3.5-5.1) Chloride Level 104 mmol/L (98-107) 100 mmol/L (98-107) Carbon Dioxide Level 36 mmol/L (21-32) 36 mmol/L (21-32) Anion Gap 6 (6-14) 5 (6-14) Blood Urea Nitrogen 17 mg/dL (8-26) 20 mg/dL (8-26) Creatinine 1.0 mg/dL (0.7-1.3) 0.8 mg/dL (0.7-1.3) Estimated GFR (Cockcroft-Gault) 92.5 119.7 BUN/Creatinine Ratio 17 (6-20) Glucose Level 136 mg/dL (70-99) 122 mg/dL (70-99) Calcium Level 9.1 mg/dL (8.5-10.1) 9.6 mg/dL (8.5-10.1) Magnesium Level 1.9 mg/dL (1.8-2.4) Total Bilirubin 0.6 mg/dL (0.2-1.0) Aspartate Amino Transf (AST/SGOT) 24 U/L (15-37) Alanine Aminotransferase (ALT/SGPT) 31 U/L (16-63) Alkaline Phosphatase 106 U/L (46-116) Creatine Kinase 153 U/L (39-308) Creatine Kinase MB (Mass) 2.3 ng/mL (0.0-3.6) Creatine Kinase MB Relative Index 1.5 % (0-4) Troponin I Quantitative < 0.017 ng/mL (0.000-0.055) TK-Fbl-J-Type Natriuretic Peptide 133 pg/mL (0-124) Total Protein 6.3 g/dL (6.4-8.2) Albumin 3.6 g/dL (3.4-5.0) Albumin/Globulin Ratio 1.3 (1.0-1.7) Glucose (Fingerstick) 221 mg/dL (70-99) 148 mg/dL (70-99) Laboratory Tests Test 10/24/18 20:48 10/25/18 04:25 Glucose (Fingerstick) 148 mg/dL (70-99) White Blood Count 4.8 x10^3/uL (4.0-11.0) Red Blood Count 3.53 x10^6/uL (4.30-5.70) Hemoglobin 7.9 g/dL (13.0-17.5) Hematocrit 25.4 % (39.0-53.0) Mean Corpuscular Volume 72 fL (79-100) Mean Corpuscular Hemoglobin 22 pg (25-35) Mean Corpuscular Hemoglobin Concent 31 g/dL (31-37) Red Cell Distribution Width 19.9 % (11.5-14.5) Platelet Count 329 x10^3/uL (140-400) Neutrophils (%) (Auto) 82 % (31-73) Lymphocytes (%) (Auto) 7 % (24-48) Monocytes (%) (Auto) 9 % (0-9) Eosinophils (%) (Auto) 1 % (0-3) Basophils (%) (Auto) 0 % (0-3) Neutrophils # (Auto) 3.9 x10^3/uL (1.8-7.7) Lymphocytes # (Auto) 0.3 x10^3/uL (1.0-4.8) Monocytes # (Auto) 0.4 x10^3/uL (0.0-1.1) Eosinophils # (Auto) 0.1 x10^3/uL (0.0-0.7) Basophils # (Auto) 0.0 x10^3/uL (0.0-0.2) Sodium Level 141 mmol/L (136-145) Potassium Level 3.9 mmol/L (3.5-5.1) Chloride Level 100 mmol/L (98-107) Carbon Dioxide Level 36 mmol/L (21-32) Anion Gap 5 (6-14) Blood Urea Nitrogen 20 mg/dL (8-26) Creatinine 0.8 mg/dL (0.7-1.3) Estimated GFR (Cockcroft-Gault) 119.7 Glucose Level 122 mg/dL (70-99) Calcium Level 9.6 mg/dL (8.5-10.1) Medications Active Scripts Medications Dose Route/Sig Max Daily Dose Days Date Category Dose Instructions Lidocaine PATCH (Lidocaine) 1 Each Adh..patch 1 Each TP DAILY 09/11/18 Rx REMOVE AFTER 12 HOURS Ativan (Lorazepam) 1 Mg Tablet 1 Mg PO PRN BID PRN 09/11/18 Rx Tizanidine Hcl 4 Mg Tablet 4 Mg PO QID PRN 09/09/18 Reported Azithromycin Tablet (Azithromycin) 500 Mg Tablet 500 Mg PO DAILY 09/09/18 Reported Xarelto (Rivaroxaban) 20 Mg Tablet 20 Mg PO DAILY 09/09/18 Reported Metformin Hcl 500 Mg Tablet 500 Mg PO DAILYWBKFT 09/09/18 Reported Tramadol Hcl 50 Mg Tablet 50 Mg PO Q6HRS PRN 09/08/18 Rx Doxycycline Hyclate 100 Mg Tablet 1 Tab PO BID 09/08/18 Rx Humalog (Insulin Lispro) 100 Unit/1 Ml Insuln.pen 0 Units SQ TIDWMEALS 08/28/18 Rx Aspirin Ec (Aspirin) 81 Mg Tablet.dr 81 Mg PO DAILYWBKFT 08/28/18 Rx Pulmicort (Budesonide) 0.25 Mg/2 Ml Ampul.neb 1 Vial NEB BID 08/25/18 Reported Albuterol Sulfate Neb Soln (Albuterol Sulfate) 2.5 Mg/3 Ml Vial.neb 1 Vial NEB PRN Q2HR PRN 08/25/18 Reported Cyclobenzaprine Hcl 5 Mg Tablet 5 Mg PO PRN TID PRN 08/20/18 Rx Tramadol Hcl 50 Mg Tablet 50 Mg PO PRN Q6HRS PRN 6 07/12/18 Rx Furosemide 40 Mg Tablet 1 Tab PO DAILY 06/20/18 Reported Guaifenesin 100 Mg/5 Ml Liquid 200 Mg PO PRN Q4HRS PRN 30 05/30/18 Rx Tylenol (Acetaminophen) 325 Mg Tablet 650 Mg PO PRN Q4HRS PRN 10 05/30/18 Rx Ventolin Hfa Inhaler (Albuterol Sulfate) 18 Gm Hfa.aer.ad 2 Puff INH Q4HRS 05/10/18 Rx Vitamin D3 (Cholecalciferol (Vitamin D3)) 5,000 Unit Tablet 5,000 Unit PO DAILY 03/15/18 Reported Reglan (Metoclopramide Hcl) 10 Mg Tablet 0.5 Tab PO QID 30 02/14/18 Rx Potassium Chloride 20 Meq Tablet.er 20 Meq PO DAILY 01/13/18 Reported Protonix (Pantoprazole Sodium) 20 Mg Tablet.dr 1 Tab PO DAILY 11/18/17 Reported Atorvastatin Calcium 10 Mg Tablet 10 Mg PO HS 08/21/17 Reported Symbicort 160-4.5 Mcg Inhaler (Budesonide/Formoterol Fumarate) 10.2 Gm Hfa.aer.ad 2 Puff IH BID 09/21/15 Reported Impression . 1. Acute on chronic respiratory failure secondary to multifactorial etiologies including underlying end-stage chronic obstructive pulmonary disease with exacerbation and increased abdominal distention, bloating, and belching also contributing to his lung condition. Unfortunately, there is not much to do from a lung standpoint. He has end-stage chronic obstructive pulmonary disease. 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 He was referred to for bullectomy and also for lung transplant evaluation, but was denied. 2. Abnormal chest x-ray with giant bullous lung disease on the left and unchanged mild interstitial infiltrate at right base. No significant change. 3. H/o ? PE at [facility]. f/u scan at [facility] on previous admissions with no Pulmonary embolism. Has been on Xarelto. Plan . 1. Discussed with RN . Continue with present oxygen at 3 liters. 2. The patient has home CPAP. I would recommend evaluating him for home Trilogy ventilator.classification case manager aware 3. Continue present DuoNebs. 4. Minimize the use of narcotics as it would slow down his bowels. 5. PCP to address his constipation and bloating. 6. The patient on Xarelto. Continue per pharmacy. 7. We will follow along with you. I did talked to him about advance directives. He agrees for DNR. VIN MEAD MD Oct 25, 2018 11:14
[2018-10-25] MEDS ORDERED: ANTI-COAG MONITOR BY PHARMACY. MC PRN (12:45)
[2018-10-25] MEDS ORDERED: KETOROLAC 15 MG/ML VIAL. IV PRN (14:00)
[2018-10-25 14:34] LABS: BASE EXCESS ABG 8 mmol/L (-3-3); HCO3 ABG 32 mmol/L (21-28); PCO2 ABG 45 mmHg (35-46); PO2 ABG 55 mmHg (65-108); SAT O2 ABG 88 % (92-99)
[2018-10-25] MEDS: oxyCODONE/APAP 5/325 1 TAB TABLET PO PRN ×2 (14:42→21:02)
[2018-10-25 14:49] LABS: FIO2 ABG 21%
--- NOTE | 2018-10-25 16:14 | NUR ---
SW following pt. Clinicals are faxed to [facility]. Spoke with [facility]: [phone]. Approval pending. Spoke with pt about SNU. Pt states he can't go to SNU from hospital and will need to go home first to bring clothes and 'take care of things'. SW asked if his family can bring his clothes but pt states they are not able to. Pt states he will go home and will ask his PCP to get him into Rehab. D/W RN.
[2018-10-25] MEDS: MONTELUKAST SODIUM 10 MG TABLET. PO SCH (20:55)
[2018-10-25] MEDS: ATORVASTATIN CALCIUM 10 MG TABLET. PO SCH (20:56)
[2018-10-25] MEDS: PATCH REMOVAL. MC SCH (21:00)
[2018-10-26 03:00] VITALS: BP 120/79
[2018-10-26] MEDS: POLYETHYLENE GLYCOL 3350 17 GM PACKET. PO PRN (05:05)
[2018-10-26] MEDS: ALBUTEROL SULFATE 2.5 MG/3 ML NEBU. NEB PRN (05:22)
[2018-10-26 07:00] VITALS: BP 106/66
[2018-10-26] MEDS: BUDESONIDE 0.5 MG/2 ML NEBU. NEB SCH ×2 (07:21→19:58)
[2018-10-26] MEDS: IPRATRPIUM/ALBUTEROL 0.5/2.5MG 3 ML NEBU. NEB SCH ×4 (07:21→19:57)
[2018-10-26] MEDS: INSULIN LISPRO 300 UNITS/3 ML VIAL. SQ SCH ×3 (08:00→16:50)
[2018-10-26] MEDS: metFORMIN 500 MG TABLET PO SCH (08:00)
[2018-10-26] MEDS: DOCUSATE SODIUM 100 MG CAPSULE. PO SCH (08:05)
[2018-10-26] MEDS: predniSONE 10 MG TABLET PO SCH (08:06)
[2018-10-26] MEDS: AZITHROMYCIN 250 MG TABLET. PO SCH (08:06)
[2018-10-26] MEDS: POTASSIUM CHLORIDE 20 MEQ TABLET.ER. PO SCH (08:06)
[2018-10-26] MEDS: guaiFENesin ORAL 200 MG/10 ML LIQUID. PO SCH ×4 (08:06→21:00)
[2018-10-26] MEDS: FUROSEMIDE 40 MG TABLET. PO SCH (08:06)
[2018-10-26] MEDS: LACTOBACILLUS RHAMNOSUS GG 1 CAPSULE. PO SCH ×2 (08:06→21:00)
[2018-10-26] MEDS: RIVAROXABAN 10 MG TABLET. PO SCH (08:06)
[2018-10-26] MEDS: POLYETHYLENE GLYCOL 3350 17 GM PACKET. PO SCH (08:06)
[2018-10-26] MEDS: PANTOPRAZOLE 40 MG TABLET.DR. PO SCH (08:06)
[2018-10-26] MEDS: CHOLECALCIFEROL (VITAMIN D3) 5,000 UNIT CAPSULE PO SCH (08:07)
[2018-10-26] MEDS: METOCLOPRAMIDE 5 MG TABLET. PO SCH ×4 (08:07→22:06)
[2018-10-26] MEDS: ASPIRIN ENTERIC COATED 81 MG TABLET.DR. PO SCH (08:07)
[2018-10-26] MEDS: PREGABALIN 25 MG CAPSULE PO SCH ×2 (08:08→22:05)
[2018-10-26] MEDS: LIDOCAINE (700MG/PATCH) PATCH. TP SCH (08:08)
--- NOTE | 2018-10-26 09:01 | PDOC ---
PULMONARY PROGRESS NOTES Subjective still constipated, despite miralax and Colace Remains on 3 liters N/C reports productive cough with yellow sputum. Denies any increased shortness of breath Vitals Vital Signs Date Time Temp Pulse Resp B/P (MAP) Pulse Ox O2 Delivery O2 Flow Rate FiO2 10/26/18 07:22 99 Nasal Cannula 3.0 10/26/18 07:00 98.0 102 20 106/66 (79) 98.0 ROS: No Nausea, No Increase Cough General: Alert, No acute distress Lungs: Other (dimished throughout ) Cardiovascular: S1, S2 Abdomen: Soft, Non-tender Neuro Exam: Alert, Oriented, Normal Speech Extremities: No Edema Skin: Warm, Dry Labs Laboratory Tests Test 10/24/18 09:01 10/24/18 20:48 10/25/18 04:25 10/25/18 10:57 Glucose (Fingerstick) 221 mg/dL (70-99) 148 mg/dL (70-99) White Blood Count 4.8 x10^3/uL (4.0-11.0) Red Blood Count 3.53 x10^6/uL (4.30-5.70) Hemoglobin 7.9 g/dL (13.0-17.5) Hematocrit 25.4 % (39.0-53.0) Mean Corpuscular Volume 72 fL (79-100) Mean Corpuscular Hemoglobin 22 pg (25-35) Mean Corpuscular Hemoglobin Concent 31 g/dL (31-37) Red Cell Distribution Width 19.9 % (11.5-14.5) Platelet Count 329 x10^3/uL (140-400) Neutrophils (%) (Auto) 82 % (31-73) Lymphocytes (%) (Auto) 7 % (24-48) Monocytes (%) (Auto) 9 % (0-9) Eosinophils (%) (Auto) 1 % (0-3) Basophils (%) (Auto) 0 % (0-3) Neutrophils # (Auto) 3.9 x10^3/uL (1.8-7.7) Lymphocytes # (Auto) 0.3 x10^3/uL (1.0-4.8) Monocytes # (Auto) 0.4 x10^3/uL (0.0-1.1) Eosinophils # (Auto) 0.1 x10^3/uL (0.0-0.7) Basophils # (Auto) 0.0 x10^3/uL (0.0-0.2) Sodium Level 141 mmol/L (136-145) Potassium Level 3.9 mmol/L (3.5-5.1) Chloride Level 100 mmol/L (98-107) Carbon Dioxide Level 36 mmol/L (21-32) Anion Gap 5 (6-14) Blood Urea Nitrogen 20 mg/dL (8-26) Creatinine 0.8 mg/dL (0.7-1.3) Estimated GFR (Cockcroft-Gault) 119.7 Glucose Level 122 mg/dL (70-99) Calcium Level 9.6 mg/dL (8.5-10.1) O2 Saturation 88 % (92-99) Arterial Blood pH 7.47 (7.35-7.45) Arterial Blood pCO2 at Patient Temp 45 mmHg (35-46) Arterial Blood pO2 at Patient Temp 55 mmHg (65-108) Arterial Blood HCO3 32 mmol/L (21-28) Arterial Blood Base Excess 8 mmol/L (-3-3) FiO2 21% Test 10/25/18 11:17 10/25/18 16:39 10/26/18 07:57 Glucose (Fingerstick) 93 mg/dL (70-99) 117 mg/dL (70-99) 108 mg/dL (70-99) Laboratory Tests Test 10/25/18 10:57 10/25/18 11:17 10/25/18 16:39 10/26/18 07:57 O2 Saturation 88 % (92-99) Arterial Blood pH 7.47 (7.35-7.45) Arterial Blood pCO2 at Patient Temp 45 mmHg (35-46) Arterial Blood pO2 at Patient Temp 55 mmHg (65-108) Arterial Blood HCO3 32 mmol/L (21-28) Arterial Blood Base Excess 8 mmol/L (-3-3) FiO2 21% Glucose (Fingerstick) 93 mg/dL (70-99) 117 mg/dL (70-99) 108 mg/dL (70-99) Medications Active Scripts Medications Dose Route/Sig Max Daily Dose Days Date Category Dose Instructions Lidocaine PATCH (Lidocaine) 1 Each Adh..patch 1 Each TP DAILY 30 09/11/18 Rx REMOVE AFTER 12 HOURS Ativan (Lorazepam) 1 Mg Tablet 1 Mg PO PRN BID PRN 09/11/18 Rx Tizanidine Hcl 4 Mg Tablet 4 Mg PO QID PRN 09/09/18 Reported Azithromycin Tablet (Azithromycin) 500 Mg Tablet 500 Mg PO DAILY 09/09/18 Reported Xarelto (Rivaroxaban) 20 Mg Tablet 20 Mg PO DAILY 09/09/18 Reported Metformin Hcl 500 Mg Tablet 500 Mg PO DAILYWBKFT 09/09/18 Reported Tramadol Hcl 50 Mg Tablet 50 Mg PO Q6HRS PRN 09/08/18 Rx Doxycycline Hyclate 100 Mg Tablet 1 Tab PO BID 09/08/18 Rx Humalog (Insulin Lispro) 100 Unit/1 Ml Insuln.pen 0 Units SQ TIDWMEALS 30 08/28/18 Rx Aspirin Ec (Aspirin) 81 Mg Tablet.dr 81 Mg PO DAILYWBKFT 30 08/28/18 Rx Pulmicort (Budesonide) 0.25 Mg/2 Ml Ampul.neb 1 Vial NEB BID 08/25/18 Reported Albuterol Sulfate Neb Soln (Albuterol Sulfate) 2.5 Mg/3 Ml Vial.neb 1 Vial NEB PRN Q2HR PRN 08/25/18 Reported Cyclobenzaprine Hcl 5 Mg Tablet 5 Mg PO PRN TID PRN 08/20/18 Rx Tramadol Hcl 50 Mg Tablet 50 Mg PO PRN Q6HRS PRN 6 07/12/18 Rx Furosemide 40 Mg Tablet 1 Tab PO DAILY 06/20/18 Reported Guaifenesin 100 Mg/5 Ml Liquid 200 Mg PO PRN Q4HRS PRN 30 05/30/18 Rx Tylenol (Acetaminophen) 325 Mg Tablet 650 Mg PO PRN Q4HRS PRN 10 05/30/18 Rx Ventolin Hfa Inhaler (Albuterol Sulfate) 18 Gm Hfa.aer.ad 2 Puff INH Q4HRS 05/10/18 Rx Vitamin D3 (Cholecalciferol (Vitamin D3)) 5,000 Unit Tablet 5,000 Unit PO DAILY 03/15/18 Reported Reglan (Metoclopramide Hcl) 10 Mg Tablet 0.5 Tab PO QID 30 02/14/18 Rx Potassium Chloride 20 Meq Tablet.er 20 Meq PO DAILY 01/13/18 Reported Protonix (Pantoprazole Sodium) 20 Mg Tablet.dr 1 Tab PO DAILY 11/18/17 Reported Atorvastatin Calcium 10 Mg Tablet 10 Mg PO HS 08/21/17 Reported Symbicort 160-4.5 Mcg Inhaler (Budesonide/Formoterol Fumarate) 10.2 Gm Hfa.aer.ad 2 Puff IH BID 09/21/15 Reported Impression . 1. Acute on chronic respiratory failure secondary to multifactorial: end-stage chronic obstructive pulmonary disease with exacerbation, increased abdominal distention, bloating, and belching He has end-stage chronic obstructive pulmonary disease. 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 He was referred to for bullectomy and also for lung transplant evaluation, but was denied. 2. Abnormal chest x-ray with giant bullous lung disease on the left and unchanged mild interstitial infiltrate at right base. No significant change. 3. H/o ? PE at [facility]. f/u scan at [facility] on previous admissions with no Pulmonary embolism. Has been on Xarelto. Plan . 1. Continue with present oxygen at 3 liter, continue steroids and azithro 2. The patient has home CPAP, Based on ABG would not qualify for Trilogy ventilator. BIPAP qhs 3. Continue present DuoNebs. 4. Minimize the use of narcotics as it would slow down his bowels 5. PCP to address his constipation and bloating. 6. Continue Xarelto. 7. We will follow along with you. 8. Patient is DNR 9. Discussed with VIN AMAYA MD Oct 26, 2018 09:01
[2018-10-26] MEDS: oxyCODONE/APAP 5/325 1 TAB TABLET PO PRN ×2 (09:21→17:20)
--- NOTE | 2018-10-26 10:28 | PDOC ---
PROGRESS NOTES Chief Complaint Chief Complaint 1. Advanced copd with freq hospitalizations, not ready for hospice, COPD flare, no HCAP on CXR 2. Distant tobaccoism 3. Weight loss 4. Steroid induced skin dermatitis 5. 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 Microcytic anemia, stable 7. COnstipation History of Present Illness History of Present Illness better! CAn talk longer sentences now before he coughs SNU candidate but wishes to go home first to "take care of business" constipated, no resolve with colace or miralax Agreeable to fleet enema finally PLAN: Cont present lung regimen - seems to be working MOM now - ordered yesterday - enema if no BM with MOM Dw pulmo - ABG shows pH 7.44 Co2 45m, O2 88 - might not qualify for trilogy KEep over lui weekend - Home sunday - SNU if he changes his mind (he qualifies)- he has high readmission rates Vitals Vitals Vital Signs Date Time Temp Pulse Resp B/P (MAP) Pulse Ox O2 Delivery O2 Flow Rate FiO2 10/26/18 09:22 Nasal Cannula 3.0 10/26/18 07:22 99 10/26/18 07:00 98.0 102 20 106/66 (79) 98.0 Physical Exam General: Alert, Cooperative, mild distress, Other (minimal subq tissue from chronic steroid use) Heart: Regular rate, Normal S1 Lungs: Other (dimished throughout ) Abdomen: Normal bowel sounds, Soft, No tenderness, No hepatosplenomegaly, No masses Extremities: No clubbing, No cyanosis, No edema, No tenderness/swelling, Other (steroid skin, minimal subQ) Skin: No rashes, No breakdown Labs LABS Laboratory Tests Test 10/25/18 10:57 10/25/18 11:17 10/25/18 16:39 10/26/18 07:57 O2 Saturation 88 % (92-99) Arterial Blood pH 7.47 (7.35-7.45) Arterial Blood pCO2 at Patient Temp 45 mmHg (35-46) Arterial Blood pO2 at Patient Temp 55 mmHg (65-108) Arterial Blood HCO3 32 mmol/L (21-28) Arterial Blood Base Excess 8 mmol/L (-3-3) FiO2 21% Glucose (Fingerstick) 93 mg/dL (70-99) 117 mg/dL (70-99) 108 mg/dL (70-99) Review of Systems Review of Systems constipated, cough, no inc soa, no fever, no cp, gassy, the rest 14 pt neg Assessment and Plan Assessmemt and Plan Problems Medical Problems: (1) Microcytic anemia Status: Chronic Comment Review of Relevant I have reviewed the following items franki (where applicable) has been applied. Labs Laboratory Tests Test 10/24/18 20:48 10/25/18 04:25 10/25/18 10:57 10/25/18 11:17 Glucose (Fingerstick) 148 mg/dL (70-99) 93 mg/dL (70-99) White Blood Count 4.8 x10^3/uL (4.0-11.0) Red Blood Count 3.53 x10^6/uL (4.30-5.70) Hemoglobin 7.9 g/dL (13.0-17.5) Hematocrit 25.4 % (39.0-53.0) Mean Corpuscular Volume 72 fL (79-100) Mean Corpuscular Hemoglobin 22 pg (25-35) Mean Corpuscular Hemoglobin Concent 31 g/dL (31-37) Red Cell Distribution Width 19.9 % (11.5-14.5) Platelet Count 329 x10^3/uL (140-400) Neutrophils (%) (Auto) 82 % (31-73) Lymphocytes (%) (Auto) 7 % (24-48) Monocytes (%) (Auto) 9 % (0-9) Eosinophils (%) (Auto) 1 % (0-3) Basophils (%) (Auto) 0 % (0-3) Neutrophils # (Auto) 3.9 x10^3/uL (1.8-7.7) Lymphocytes # (Auto) 0.3 x10^3/uL (1.0-4.8) Monocytes # (Auto) 0.4 x10^3/uL (0.0-1.1) Eosinophils # (Auto) 0.1 x10^3/uL (0.0-0.7) Basophils # (Auto) 0.0 x10^3/uL (0.0-0.2) Sodium Level 141 mmol/L (136-145) Potassium Level 3.9 mmol/L (3.5-5.1) Chloride Level 100 mmol/L (98-107) Carbon Dioxide Level 36 mmol/L (21-32) Anion Gap 5 (6-14) Blood Urea Nitrogen 20 mg/dL (8-26) Creatinine 0.8 mg/dL (0.7-1.3) Estimated GFR (Cockcroft-Gault) 119.7 Glucose Level 122 mg/dL (70-99) Calcium Level 9.6 mg/dL (8.5-10.1) O2 Saturation 88 % (92-99) Arterial Blood pH 7.47 (7.35-7.45) Arterial Blood pCO2 at Patient Temp 45 mmHg (35-46) Arterial Blood pO2 at Patient Temp 55 mmHg (65-108) Arterial Blood HCO3 32 mmol/L (21-28) Arterial Blood Base Excess 8 mmol/L (-3-3) FiO2 21% Test 10/25/18 16:39 10/26/18 07:57 Glucose (Fingerstick) 117 mg/dL (70-99) 108 mg/dL (70-99) Laboratory Tests Test 10/25/18 10:57 10/25/18 11:17 10/25/18 16:39 10/26/18 07:57 O2 Saturation 88 % (92-99) Arterial Blood pH 7.47 (7.35-7.45) Arterial Blood pCO2 at Patient Temp 45 mmHg (35-46) Arterial Blood pO2 at Patient Temp 55 mmHg (65-108) Arterial Blood HCO3 32 mmol/L (21-28) Arterial Blood Base Excess 8 mmol/L (-3-3) FiO2 21% Glucose (Fingerstick) 93 mg/dL (70-99) 117 mg/dL (70-99) 108 mg/dL (70-99) Medications Current Medications Morphine Sulfate (Morphine Sulfate) 4 mg PRN Q15MIN PRN IV/SQ PAIN GREATER THAN 3/10 Last administered on 10/24/18at 00:08; Start 10/23/18 at 23:15; Stop 10/24/18 at 23:14; Status DC Methylprednisolone Sodium Succinate (SOLU-Medrol 125MG VIAL) 125 mg 1X ONCE IV Last administered on 10/24/18at 00:08; Start 10/23/18 at 23:30; Stop 10/23/18 at 23:31; Status DC Albuterol/ Ipratropium (Duoneb) 3 ml 1X ONCE NEB Last administered on 10/23/18at 23:47; Start 10/23/18 at 23:30; Stop 10/23/18 at 23:31; Status DC Ondansetron HCl (Zofran) 4 mg PRN Q8HRS PRN IV NAUSEA/VOMITING 1ST CHOICE; Start 10/24/18 at 00:15; Stop 10/25/18 at 00:14; Status DC Morphine Sulfate (Morphine Sulfate) 4 mg PRN Q2HR PRN IV SEVERE PAIN 7-10 Last administered on 10/24/18at 21:50; Start 10/24/18 at 00:15; Stop 10/25/18 at 00:14; Status DC Acetaminophen (Tylenol) 650 mg PRN Q4HRS PRN PO FEVER; Start 10/24/18 at 00:15; Stop 10/24/18 at 02:48; Status DC Albuterol/ Ipratropium (Duoneb) 3 ml RTQID NEB Last administered on 10/25/18at 07:32; Start 10/24/18 at 08:00; Stop 10/25/18 at 07:59; Status DC Pregabalin (Lyrica) 25 mg BID PO Last administered on 10/26/18at 08:08; Start 10/24/18 at 09:00 Prednisone (Prednisone) 10 mg DAILY PO Last administered on 10/26/18at 08:08; Start 10/24/18 at 09:00 Acetaminophen (Tylenol) 650 mg PRN Q4HRS PRN PO TEMP OVER 100.4F OR MILD PAIN; Start 10/24/18 at 02:45 Aspirin (Ecotrin) 81 mg DAILYWBKFT PO Last administered on 10/26/18at 08:08; Start 10/24/18 at 08:00 Atorvastatin Calcium (Lipitor) 10 mg HS PO Last administered on 10/25/18at 21:02; Start 10/24/18 at 21:00 Doxycycline Hyclate (Vibra-Tab) 100 mg BID PO ; Start 10/24/18 at 09:00; Status UNV Furosemide (Lasix) 40 mg DAILY PO Last administered on 10/26/18at 08:08; Start 10/24/18 at 09:00 Guaifenesin (Robitussin) 200 mg PRN Q4HRS PRN PO COUGH 1ST CHOICE; Start 10/24/18 at 02:45; Stop 10/24/18 at 11:15; Status DC Insulin Human Lispro (HumaLOG) TIDWMEALS SQ ; Start 10/24/18 at 08:00 Lidocaine (Lidoderm) 1 patch DAILY TP Last administered on 10/26/18 08:08; Start 10/24/18 at 09:00 Lorazepam (Ativan) 1 mg PRN BID PRN PO ANXIETY / AGITATION Last administered on 10/24/18 12:06; Start 10/24/18 at 02:45 Metformin HCl (Glucophage) 500 mg DAILYWBKFT PO Last administered on 10/25/18 08:04; Start 10/24/18 at 08:00 Metoclopramide HCl (Reglan) 5 mg QID PO Last administered on 10/26/18 08:08; Start 10/24/18 at 09:00 Tramadol HCl (Ultram) 50 mg PRN Q6HRS PRN PO MODERATE PAIN 4-6 Last administered on 10/25/18 08:04; Start 10/24/18 at 02:45 Non-Formulary Medication (Albuterol Sulfate (Ventolin Hfa Inhaler)) 2 puff Q4HRS INH ; Start 10/24/18 at 04:00; Status UNV Azithromycin (Zithromax) 500 mg DAILY PO Last administered on 10/26/18 08:08; Start 10/24/18 at 09:00 Non-Formulary Medication (Budesonide (Pulmicort)) 1 vial BID NEB ; Start 10/24/18 at 09:00; Status UNV Non-Formulary Medication (Budesonide/ Formoterol Fumarate (Symbicort 160-4.5 Mcg Inhaler)) 2 puff BID IH ; Start 10/24/18 at 09:00; Status UNV Vitamin D (Vitamin D3) 5,000 unit DAILY PO Last administered on 10/26/18 08:08; Start 10/24/18 at 09:00 Pantoprazole Sodium (Protonix) 40 mg DAILYAC PO Last administered on 10/26/18 08:08; Start 10/24/18 at 07:30 Potassium Chloride (Klor-Con) 20 meq DAILYWBKFT PO Last administered on 10/26/18 08:08; Start 10/24/18 at 08:00 Rivaroxaban (Xarelto) 20 mg DAILYWBKFT PO Last administered on 10/26/18 08:08; Start 10/24/18 at 08:00 Albuterol Sulfate (Ventolin Neb Soln) 2.5 mg PRN Q6HRS PRN NEB SHORTNESS OF BREATH Last administered on 10/26/18 05:22; Start 10/24/18 at 03:00 Albuterol Sulfate (Ventolin Neb Soln) 2.5 mg RTQID NEB ; Start 10/25/18 at 08:00; Stop 10/25/18 at 12:53; Status DC Budesonide (Pulmicort) 0.5 mg RTBID NEB Last administered on 10/26/18 07:21; Start 10/24/18 at 08:00 Miscellaneous (Lidoderm Patch Removal) 1 ea QHS MC Last administered on 10/25/18 21:54; Start 10/24/18 at 21:00 Lactobacillus Rhamnosus (Culturelle) 1 cap BID PO Last administered on 10/13 08:08; Start 10/24/18 at 09:00 Ondansetron HCl (Zofran) 4 mg PRN Q6HRS PRN IV NAUSEA/VOMITING; Start 10/24/18 at 08:30 Pantoprazole Sodium (Protonix) 40 mg DAILYAC PO ; Start 10/25/18 at 07:30; Stop 10/24/18 at 11:18; Status DC Al Hydroxide/Mg Hydroxide (Mylanta Plus Xs) 30 ml PRN Q2HR PRN PO HEARTBURN / GAS; Start 10/24/18 at 11:15 Temazepam (Restoril) 7.5 mg PRN QHS PRN PO INSOMNIA; Start 10/24/18 at 11:15 Guaifenesin (Robitussin) 200 mg QID PO Last administered on 10/26/18 08:08; Start 10/24/18 at 11:15 Polyethylene Glycol (miraLAX PACKET) 17 gm PRN DAILY PRN PO CONSTIPATION Last administered on 10/26/18 05:06; Start 10/24/18 at 12:00 Montelukast Sodium (Singulair) 10 mg QHS PO Last administered on 9/13/19at 21:02; Start 10/25/18 at 21:00 Magnesium Hydroxide (Milk Of Magnesia) 2,400 mg PRN DAILY PRN PO CONSTIPATION; Start 10/25/18 at 10:30 Magnesium Hydroxide (Milk Of Magnesia) 2,400 mg 1X ONCE PO ; Start 10/25/18 at 10:30; Stop 10/25/18 at 10:31; Status DC Simethicone (Gas-X) 80 mg PRN AFTMEALHC PRN PO GAS / BLOATING; Start 10/25/18 at 10:30 Docusate Sodium (Colace) 100 mg DAILY PO Last administered on 10/26/18at 08:08; Start 10/25/18 at 11:00 Polyethylene Glycol (miraLAX PACKET) 17 gm DAILY PO Last administered on 10/26/18at 08:08; Start 10/25/18 at 11:00 Albuterol/ Ipratropium (Duoneb) 3 ml RTQID NEB Last administered on 10/26/18at 07:21; Start 10/25/18 at 12:00 Info (Anti-Coagulation Monitoring By Pharmacy) 1 each PRN DAILY PRN MC SEE COMMENTS Last administered on 10/25/18at 13:00; Start 10/25/18 at 12:45 Oxycodone/ Acetaminophen (Percocet 5/325) 1 tab PRN Q4HRS PRN PO PAIN severe Last administered on 10/26/18at 09:22; Start 10/25/18 at 14:00 Ketorolac Tromethamine (Toradol 15mg Vial) 15 mg PRN Q6HRS PRN IV PAIN; Start 10/25/18 at 14:00; Stop 10/25/18 at 14:14; Status DC Active Scripts Active Lidocaine PATCH (Lidocaine) 1 Each Adh..patch 1 Each TP DAILY 30 Days REMOVE AFTER 12 HOURS Ativan (Lorazepam) 1 Mg Tablet 1 Mg PO PRN BID PRN Tramadol Hcl 50 Mg Tablet 50 Mg PO Q6HRS PRN Doxycycline Hyclate 100 Mg Tablet 1 Tab PO BID Humalog (Insulin Lispro) 100 Unit/1 Ml Insuln.pen 0 Units SQ TIDWMEALS 30 Days Aspirin Ec (Aspirin) 81 Mg Tablet.dr 81 Mg PO DAILYWBKFT 30 Days Cyclobenzaprine Hcl 5 Mg Tablet 5 Mg PO PRN TID PRN Tramadol Hcl 50 Mg Tablet 50 Mg PO PRN Q6HRS PRN 6 Days Guaifenesin 100 Mg/5 Ml Liquid 200 Mg PO PRN Q4HRS PRN 30 Days Tylenol (Acetaminophen) 325 Mg Tablet 650 Mg PO PRN Q4HRS PRN 10 Days Ventolin Hfa Inhaler (Albuterol Sulfate) 18 Gm Hfa.aer.ad 2 Puff INH Q4HRS Reglan (Metoclopramide Hcl) 10 Mg Tablet 0.5 Tab PO QID 30 Days Reported Tizanidine Hcl 4 Mg Tablet 4 Mg PO QID PRN Azithromycin Tablet (Azithromycin) 500 Mg Tablet 500 Mg PO DAILY Xarelto (Rivaroxaban) 20 Mg Tablet 20 Mg PO DAILY Metformin Hcl 500 Mg Tablet 500 Mg PO DAILYWBKFT Pulmicort (Budesonide) 0.25 Mg/2 Ml Ampul.neb 1 Vial NEB BID Albuterol Sulfate Neb Soln (Albuterol Sulfate) 2.5 Mg/3 Ml Vial.neb 1 Vial NEB PRN Q2HR PRN Furosemide 40 Mg Tablet 1 Tab PO DAILY Vitamin D3 (Cholecalciferol (Vitamin D3)) 5,000 Unit Tablet 5,000 Unit PO DAILY Potassium Chloride 20 Meq Tablet.er 20 Meq PO DAILY Protonix (Pantoprazole Sodium) 20 Mg Tablet.dr 1 Tab PO DAILY Atorvastatin Calcium 10 Mg Tablet 10 Mg PO HS Symbicort 160-4.5 Mcg Inhaler (Budesonide/Formoterol Fumarate) 10.2 Gm Hfa.aer.ad 2 Puff IH BID Vitals/I & O Vital Sign - Last 24 Hours 10/25/18 10/25/18 10/25/18 10/25/18 10:25 11:00 11:29 14:30 Temp 98.6 98.6 Pulse 87 Resp 19 B/P (MAP) 127/81 (96) Pulse Ox 96 O2 Delivery Nasal Cannula Nasal Cannula Nasal Cannula Room Air O2 Flow Rate 3.0 3.0 3.0 10/25/18 10/25/18 10/25/18 10/25/18 14:43 15:00 15:21 15:56 Temp 98.4 98.4 Pulse 96 Resp 23 B/P (MAP) 113/74 (87) Pulse Ox 98 96 O2 Delivery Nasal Cannula Nasal Cannula Nasal Cannula Nasal Cannula O2 Flow Rate 3.0 3.0 3.0 3.0 10/25/18 10/25/18 10/25/18 10/25/18 19:00 19:57 19:59 20:00 Temp 98.1 98.1 Pulse 75 Resp 23 B/P (MAP) 116/69 (85) Pulse Ox 100 100 100 O2 Delivery Nasal Cannula Nasal Cannula Nasal Cannula Nasal Cannula O2 Flow Rate 3.0 3.0 3.0 3.0 10/25/18 10/25/18 10/25/18 10/26/18 21:02 22:10 23:00 03:00 Temp 98.1 97.8 98.1 97.8 Pulse 75 75 Resp 23 23 B/P (MAP) 116/69 (85) 120/79 (93) Pulse Ox 100 98 O2 Delivery Nasal Cannula Nasal Cannula Nasal Cannula Nasal Cannula O2 Flow Rate 3.0 3.0 3.0 3.0 10/26/18 10/26/18 10/26/18 10/26/18 05:23 07:00 07:22 09:22 Temp 98.0 98.0 Pulse 102 Resp 20 B/P (MAP) 106/66 (79) Pulse Ox 100 99 O2 Delivery Nasal Cannula Nasal Cannula Nasal Cannula Nasal Cannula O2 Flow Rate 3.0 3.0 3.0 3.0 Intake and Output 10/25/18 10/25/18 10/26/18 14:59 22:59 06:59 Intake Total 150 ml 150 ml Output Total 700 ml Balance -700 ml 150 ml 150 ml RAI DURANT MD Oct 26, 2018 10:28
[2018-10-26] MEDS ORDERED: SODIUM PHOSPHATES 19/7GM 133 ML ENEMA. PR PRN (10:30)
[2018-10-26] MEDS ORDERED: DEXTROSE 50% 25 GM / 50ML DISP.SYRIN. IV PRN (10:30)
[2018-10-26] MEDS ORDERED: IV DEXTROSE 5% 250 ML BAG. IV PRN (10:30)
[2018-10-26 11:00] VITALS: BP 112/75
[2018-10-26] MEDS ORDERED: MAGNESIUM HYDROXIDE 2,400 MG/30 ML ORAL.SUSP. PO ONE (11:00)
[2018-10-26 15:00] VITALS: BP 122/80
--- NOTE | 2018-10-26 16:30 | RAD ---
KUB History: Abdominal pain, nausea Comparison: August 25, 2017 Findings: Single supine AP portable view of the abdomen is submitted. There is retained stool in the right colon. No gas dilated small bowel is identified by this exam. There is mild lumbar levoscoliosis. Exam is insufficient for evaluation for free air. Impression: 1. There is retained stool greater of the right colon. Electronically signed by: Nehemias Kingsley MD (10/26/2018 4:27 PM) [id number]
[2018-10-26] MEDS ORDERED: SODIUM PHOSPHATES 19/7GM 133 ML ENEMA. PR ONE (18:00)
[2018-10-26] MEDS: LACTULOSE 20 GM/30 ML SOLUTION. PO SCH ×2 (18:34→22:06)
[2018-10-26 19:00] VITALS: BP 110/67
[2018-10-26] MEDS: MONTELUKAST SODIUM 10 MG TABLET. PO SCH (21:00)
[2018-10-26] MEDS: ATORVASTATIN CALCIUM 10 MG TABLET. PO SCH (21:00)
[2018-10-26] MEDS: PATCH REMOVAL. MC SCH (21:00)
[2018-10-26] MEDS: traMADol 50 MG TABLET PO PRN (22:08)
[2018-10-26 23:02] VITALS: BP 119/75
[2018-10-27] VITALS (7 sets, daily range): BP systolic 100–125; BP diastolic 65–77
[2018-10-27] MEDS: BUDESONIDE 0.5 MG/2 ML NEBU. NEB SCH ×2 (07:45→20:21)
[2018-10-27] MEDS: IPRATRPIUM/ALBUTEROL 0.5/2.5MG 3 ML NEBU. NEB SCH ×4 (07:45→20:21)
[2018-10-27] MEDS: INSULIN LISPRO 300 UNITS/3 ML VIAL. SQ SCH ×3 (08:00→17:00)
--- NOTE | 2018-10-27 08:40 | PDOC ---
PULMONARY PROGRESS NOTES Subjective Reports being able to have BM today and yesterday. Remains on home oxygen of 3 liters N/C. Denies any increased SOB. reports decrease in cough. Still non- productive in nature. Reports overall feeling better today. Additionally, was not able to rest last night and didn't tolerate wearing BIPAP overnight. Vitals Vital Signs Date Time Temp Pulse Resp B/P (MAP) Pulse Ox O2 Delivery O2 Flow Rate FiO2 10/27/18 07:46 97 Nasal Cannula 3.0 10/27/18 03:07 98.6 102 20 125/77 (93) 98.6 ROS: No Nausea, No Increase Cough General: Alert, Oriented X4, No acute distress Lungs: Wheezing (ex. RUL, RML), Other (dimished in base ) Cardiovascular: S1, S2 Abdomen: Soft, Non-tender Neuro Exam: Alert, Oriented, Normal Speech Extremities: No Edema Skin: Warm, Dry Labs Laboratory Tests Test 10/25/18 10:57 10/25/18 11:17 10/25/18 16:39 10/26/18 07:57 O2 Saturation 88 % (92-99) Arterial Blood pH 7.47 (7.35-7.45) Arterial Blood pCO2 at Patient Temp 45 mmHg (35-46) Arterial Blood pO2 at Patient Temp 55 mmHg (65-108) Arterial Blood HCO3 32 mmol/L (21-28) Arterial Blood Base Excess 8 mmol/L (-3-3) FiO2 21% Glucose (Fingerstick) 93 mg/dL (70-99) 117 mg/dL (70-99) 108 mg/dL (70-99) Test 10/26/18 11:25 10/26/18 16:40 10/26/18 20:34 10/27/18 07:36 Glucose (Fingerstick) 105 mg/dL (70-99) 121 mg/dL (70-99) 126 mg/dL (70-99) 88 mg/dL (70-99) Laboratory Tests Test 10/26/18 11:25 10/26/18 16:40 10/26/18 20:34 10/27/18 07:36 Glucose (Fingerstick) 105 mg/dL (70-99) 121 mg/dL (70-99) 126 mg/dL (70-99) 88 mg/dL (70-99) Medications Active Scripts Medications Dose Route/Sig Max Daily Dose Days Date Category Dose Instructions Lidocaine PATCH (Lidocaine) 1 Each Adh..patch 1 Each TP DAILY 30 09/11/18 Rx REMOVE AFTER 12 HOURS Ativan (Lorazepam) 1 Mg Tablet 1 Mg PO PRN BID PRN 09/11/18 Rx Tizanidine Hcl 4 Mg Tablet 4 Mg PO QID PRN 09/09/18 Reported Azithromycin Tablet (Azithromycin) 500 Mg Tablet 500 Mg PO DAILY 09/09/18 Reported Xarelto (Rivaroxaban) 20 Mg Tablet 20 Mg PO DAILY 09/09/18 Reported Metformin Hcl 500 Mg Tablet 500 Mg PO DAILYWBKFT 09/09/18 Reported Tramadol Hcl 50 Mg Tablet 50 Mg PO Q6HRS PRN 09/08/18 Rx Doxycycline Hyclate 100 Mg Tablet 1 Tab PO BID 09/08/18 Rx Humalog (Insulin Lispro) 100 Unit/1 Ml Insuln.pen 0 Units SQ TIDWMEALS 30 08/28/18 Rx Aspirin Ec (Aspirin) 81 Mg Tablet.dr 81 Mg PO DAILYWBKFT 08/28/18 Rx Pulmicort (Budesonide) 0.25 Mg/2 Ml Ampul.neb 1 Vial NEB BID 08/25/18 Reported Albuterol Sulfate Neb Soln (Albuterol Sulfate) 2.5 Mg/3 Ml Vial.neb 1 Vial NEB PRN Q2HR PRN 08/25/18 Reported Cyclobenzaprine Hcl 5 Mg Tablet 5 Mg PO PRN TID PRN 08/20/18 Rx Tramadol Hcl 50 Mg Tablet 50 Mg PO PRN Q6HRS PRN 6 07/12/18 Rx Furosemide 40 Mg Tablet 1 Tab PO DAILY 06/20/18 Reported Guaifenesin 100 Mg/5 Ml Liquid 200 Mg PO PRN Q4HRS PRN 30 05/30/18 Rx Tylenol (Acetaminophen) 325 Mg Tablet 650 Mg PO PRN Q4HRS PRN 10 05/30/18 Rx Ventolin Hfa Inhaler (Albuterol Sulfate) 18 Gm Hfa.aer.ad 2 Puff INH Q4HRS 05/10/18 Rx Vitamin D3 (Cholecalciferol (Vitamin D3)) 5,000 Unit Tablet 5,000 Unit PO DAILY 03/15/18 Reported Reglan (Metoclopramide Hcl) 10 Mg Tablet 0.5 Tab PO QID 30 02/14/18 Rx Potassium Chloride 20 Meq Tablet.er 20 Meq PO DAILY 01/13/18 Reported Protonix (Pantoprazole Sodium) 20 Mg Tablet.dr 1 Tab PO DAILY 11/18/17 Reported Atorvastatin Calcium 10 Mg Tablet 10 Mg PO HS 08/21/17 Reported Symbicort 160-4.5 Mcg Inhaler (Budesonide/Formoterol Fumarate) 10.2 Gm Hfa.aer.ad 2 Puff IH BID 09/21/15 Reported Impression . 1. Acute on chronic respiratory failure secondary to multifactorial: end stage COPD with ex. in combination with constipation/abdominal fullness 2. End-stage COPD with significant bullous disease on left side: not a candidate for bullectomy or lung transplant evaluated by [facility] in the past 3. Abnormal chest X-ray however unchanged for him 4. Hx. of PE however CTA at [facility] 10/13/18 was (-) remains on [place] 5. DM II Plan . 1. Continue with present oxygen at 3 liter, continue steroids and azithro 2. The patient has home CPAP, cont. BIPAP at HS 3. Continue present DuoNebs. 4. Minimize the use of narcotics as it would slow down his bowels 5. Continue Xarelto. 6. DM II under good control: recs per IM 7. We will follow along with you. 8. Patient is DNR 9. Discussed with [facility] in [place] MD Oct 27, 2018 08:40
[2018-10-27] MEDS: ASPIRIN ENTERIC COATED 81 MG TABLET.DR. PO SCH (08:52)
[2018-10-27] MEDS: LACTULOSE 20 GM/30 ML SOLUTION. PO SCH ×2 (08:52→21:04)
[2018-10-27] MEDS: guaiFENesin ORAL 200 MG/10 ML LIQUID. PO SCH ×4 (08:52→21:07)
[2018-10-27] MEDS: DOCUSATE SODIUM 100 MG CAPSULE. PO SCH (08:52)
[2018-10-27] MEDS: POTASSIUM CHLORIDE 20 MEQ TABLET.ER. PO SCH (08:52)
[2018-10-27] MEDS: PANTOPRAZOLE 40 MG TABLET.DR. PO SCH (08:52)
[2018-10-27] MEDS: metFORMIN 500 MG TABLET PO SCH (08:52)
[2018-10-27] MEDS: PREGABALIN 25 MG CAPSULE PO SCH ×2 (08:53→21:03)
[2018-10-27] MEDS: LACTOBACILLUS RHAMNOSUS GG 1 CAPSULE. PO SCH ×2 (08:53→21:03)
[2018-10-27] MEDS: predniSONE 10 MG TABLET PO SCH (08:53)
[2018-10-27] MEDS: RIVAROXABAN 10 MG TABLET. PO SCH (08:53)
[2018-10-27] MEDS: CHOLECALCIFEROL (VITAMIN D3) 5,000 UNIT CAPSULE PO SCH (08:53)
[2018-10-27] MEDS: AZITHROMYCIN 250 MG TABLET. PO SCH (08:53)
[2018-10-27] MEDS: FUROSEMIDE 40 MG TABLET. PO SCH (08:54)
[2018-10-27] MEDS: traMADol 50 MG TABLET PO PRN ×2 (08:54→19:16)
[2018-10-27] MEDS: METOCLOPRAMIDE 5 MG TABLET. PO SCH ×4 (08:54→21:03)
--- NOTE | 2018-10-27 09:38 | PDOC ---
PROGRESS NOTES Chief Complaint Chief Complaint 1. Advanced copd with freq hospitalizations, not ready for hospice, COPD flare, no HCAP on CXR 2. Distant tobaccoism 3. Weight loss 4. Steroid induced skin dermatitis 5. 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 Microcytic anemia, stable 7. COnstipation History of Present Illness History of Present Illness better! CAn talk longer sentences now before he coughs SNU candidate but wishes to go home first to "take care of business" constipated, resolved with fleet ENEMA!, belly much softer HAd urinary retention yesterday sec to big belly from stools KUB shows stool rt colon PLAN: Cont present lung regimen - seems to be working SW on case for trilogy Dw pulmo - ABG shows pH 7.44 Co2 45m, O2 88 - might not qualify for trilogy KEep over the weekend - Home sunday - SNU if he changes his mind (he qualifies)- he has high readmission rates Will need singulair on dc Vitals Vitals Vital Signs Date Time Temp Pulse Resp B/P (MAP) Pulse Ox O2 Delivery O2 Flow Rate FiO2 10/27/18 08:00 98.0 96 18 117/73 (88) Nasal Cannula 3.0 98.0 10/27/18 07:46 97 Physical Exam General: Alert, Cooperative, mild distress, Other (minimal subq tissue from chronic steroid use) Heart: Regular rate, Normal S1 Lungs: Wheezing (ex. RUL, RML), Other (dimished in base ) Abdomen: Normal bowel sounds, Soft, No tenderness, No hepatosplenomegaly, No masses Extremities: No clubbing, No cyanosis, No edema, No tenderness/swelling, Other (steroid skin, minimal subQ) Skin: No rashes, No breakdown Labs LABS Laboratory Tests Test 10/26/18 11:25 10/26/18 16:40 10/26/18 20:34 10/27/18 07:36 Glucose (Fingerstick) 105 mg/dL (70-99) 121 mg/dL (70-99) 126 mg/dL (70-99) 88 mg/dL (70-99) Review of Systems Review of Systems weak, cough, soa on long distances, no fevers, n,.v.d, constipation is better Assessment and Plan Assessmemt and Plan Problems Medical Problems: (1) Microcytic anemia Status: Chronic Comment Review of Relevant I have reviewed the following items franki (where applicable) has been applied. Labs Laboratory Tests Test 10/25/18 10:57 10/25/18 11:17 10/25/18 16:39 10/26/18 07:57 O2 Saturation 88 % (92-99) Arterial Blood pH 7.47 (7.35-7.45) Arterial Blood pCO2 at Patient Temp 45 mmHg (35-46) Arterial Blood pO2 at Patient Temp 55 mmHg (65-108) Arterial Blood HCO3 32 mmol/L (21-28) Arterial Blood Base Excess 8 mmol/L (-3-3) FiO2 21% Glucose (Fingerstick) 93 mg/dL (70-99) 117 mg/dL (70-99) 108 mg/dL (70-99) Test 10/26/18 11:25 10/26/18 16:40 10/26/18 20:34 10/27/18 07:36 Glucose (Fingerstick) 105 mg/dL (70-99) 121 mg/dL (70-99) 126 mg/dL (70-99) 88 mg/dL (70-99) Laboratory Tests Test 10/26/18 11:25 10/26/18 16:40 10/26/18 20:34 10/27/18 07:36 Glucose (Fingerstick) 105 mg/dL (70-99) 121 mg/dL (70-99) 126 mg/dL (70-99) 88 mg/dL (70-99) Medications Current Medications Morphine Sulfate (Morphine Sulfate) 4 mg PRN Q15MIN PRN IV/SQ PAIN GREATER THAN 3/10 Last administered on 10/24/18at 00:08; Start 10/23/18 at 23:15; Stop 10/24 at 23:14; Status DC Methylprednisolone Sodium Succinate (SOLU-Medrol 125MG VIAL) 125 mg 1X ONCE IV Last administered on 10/24/18at 00:08; Start 10/23/18 at 23:30; Stop 10/23/18 at 23:31; Status DC Albuterol/ Ipratropium (Duoneb) 3 ml 1X ONCE NEB Last administered on 10/23/18at 23:47; Start 10/23/18 at 23:30; Stop 10/23/18 at 23:31; Status DC Ondansetron HCl (Zofran) 4 mg PRN Q8HRS PRN IV NAUSEA/VOMITING 1ST CHOICE; Start 10/24/18 at 00:15; Stop 10/25/18 at 00:14; Status DC Morphine Sulfate (Morphine Sulfate) 4 mg PRN Q2HR PRN IV SEVERE PAIN 7-10 Last administered on 10/24/18at 21:50; Start 10/24/18 at 00:15; Stop 10/25/18 at 00:14; Status DC Acetaminophen (Tylenol) 650 mg PRN Q4HRS PRN PO FEVER; Start 10/24/18 at 00:15; Stop 10/24/18 at 02:48; Status DC Albuterol/ Ipratropium (Duoneb) 3 ml RTQID NEB Last administered on 10/25/18at 07:32; Start 10/24/18 at 08:00; Stop 10/25/18 at 07:59; Status DC Pregabalin (Lyrica) 25 mg BID PO Last administered on 10/27/18at 08:54; Start 10/24/18 at 09:00 Prednisone (Prednisone) 10 mg DAILY PO Last administered on 10/27/18at 08:54; Start 10/24/18 at 09:00 Acetaminophen (Tylenol) 650 mg PRN Q4HRS PRN PO TEMP OVER 100.4F OR MILD PAIN; Start 10/24/18 at 02:45 Aspirin (Ecotrin) 81 mg DAILYWBKFT PO Last administered on 10/27/18at 08:54; Start 10/24/18 at 08:00 Atorvastatin Calcium (Lipitor) 10 mg HS PO Last administered on 10/25/18at 21:02; Start 10/24/18 at 21:00 Doxycycline Hyclate (Vibra-Tab) 100 mg BID PO ; Start 10/24/18 at 09:00; Status UNV Furosemide (Lasix) 40 mg DAILY PO Last administered on 10/27/18at 08:54; Start 10/24/18 at 09:00 Guaifenesin (Robitussin) 200 mg PRN Q4HRS PRN PO COUGH 1ST CHOICE; Start 10/24/18 at 02:45; Stop 10/24/18 at 11:15; Status DC Insulin Human Lispro (HumaLOG) TIDWMEALS SQ ; Start 10/24/18 at 08:00; Stop 10/26/18 at 10:25; Status DC Lidocaine (Lidoderm) 1 patch DAILY TP Last administered on 10/26/18 08:08; Start 10/24/18 at 09:00 Lorazepam (Ativan) 1 mg PRN BID PRN PO ANXIETY / AGITATION Last administered on 10/24/18 12:06; Start 10/24/18 at 02:45 Metformin HCl (Glucophage) 500 mg DAILYWBKFT PO Last administered on 10/27/18 08:54; Start 10/24/18 at 08:00 Metoclopramide HCl (Reglan) 5 mg QID PO Last administered on 10/27/18 08:54; Start 10/24/18 at 09:00 Tramadol HCl (Ultram) 50 mg PRN Q6HRS PRN PO MODERATE PAIN 4-6 Last administered on 10/27/18 08:54; Start 10/24/18 at 02:45 Non-Formulary Medication (Albuterol Sulfate (Ventolin Hfa Inhaler)) 2 puff Q4HRS INH ; Start 10/24/18 at 04:00; Status UNV Azithromycin (Zithromax) 500 mg DAILY PO Last administered on 10/27/18 08:54; Start 10/24/18 at 09:00 Non-Formulary Medication (Budesonide (Pulmicort)) 1 vial BID NEB ; Start 10/24/18 at 09:00; Status UNV Non-Formulary Medication (Budesonide/ Formoterol Fumarate (Symbicort 160-4.5 Mcg Inhaler)) 2 puff BID IH ; Start 10/24/18 at 09:00; Status UNV Vitamin D (Vitamin D3) 5,000 unit DAILY PO Last administered on 10/27/18 08:54; Start 10/24/18 at 09:00 Pantoprazole Sodium (Protonix) 40 mg DAILYAC PO Last administered on 10/27/18 08:54; Start 10/24/18 at 07:30 Potassium Chloride (Klor-Con) 20 meq DAILYWBKFT PO Last administered on 10/27/18 08:54; Start 10/24/18 at 08:00 Rivaroxaban (Xarelto) 20 mg DAILYWBKFT PO Last administered on 10/27/18 08:54; Start 10/24/18 at 08:00 Albuterol Sulfate (Ventolin Neb Soln) 2.5 mg PRN Q6HRS PRN NEB SHORTNESS OF BREATH Last administered on 10/26/18at 05:22; Start 10/24/18 at 03:00 Albuterol Sulfate (Ventolin Neb Soln) 2.5 mg RTQID NEB ; Start 10/25/18 at 08:00; Stop 10/25/18 at 12:53; Status DC Budesonide (Pulmicort) 0.5 mg RTBID NEB Last administered on 10/27/18at 07:45; Start 10/24/18 at 08:00 Miscellaneous (Lidoderm Patch Removal) 1 ea QHS MC Last administered on 10/26/18at 22:08; Start 10/24/18 at 21:00 Lactobacillus Rhamnosus (Culturelle) 1 cap BID PO Last administered on 10/27/18at 08:54; Start 10/24/18 at 09:00 Ondansetron HCl (Zofran) 4 mg PRN Q6HRS PRN IV NAUSEA/VOMITING; Start 10/24/18 at 08:30 Pantoprazole Sodium (Protonix) 40 mg DAILYAC PO ; Start 10/25/18 at 07:30; Stop 10/24/18 at 11:18; Status DC Al Hydroxide/Mg Hydroxide (Mylanta Plus Xs) 30 ml PRN Q2HR PRN PO HEARTBURN / GAS; Start 10/24/18 at 11:15 Temazepam (Restoril) 7.5 mg PRN QHS PRN PO INSOMNIA; Start 10/24/18 at 11:15 Guaifenesin (Robitussin) 200 mg QID PO Last administered on 10/27/18at 08:54; Start 10/24/18 at 11:15 Polyethylene Glycol (miraLAX PACKET) 17 gm PRN DAILY PRN PO CONSTIPATION Last administered on 10/26/18 05:06; Start 10/24/18 at 12:00 Montelukast Sodium (Singulair) 10 mg QHS PO Last administered on 10/25/18at 21:02; Start 10/25/18 at 21:00 Magnesium Hydroxide (Milk Of Magnesia) 2,400 mg PRN DAILY PRN PO CONSTIPATION; Start 10/25/18 at 10:30 Magnesium Hydroxide (Milk Of Magnesia) 2,400 mg 1X ONCE PO ; Start 10/25/18 at 10:30; Stop 10/25/18 at 10:31; Status DC Simethicone (Gas-X) 80 mg PRN AFTMEALHC PRN PO GAS / BLOATING; Start 10/25/18 at 10:30 Docusate Sodium (Colace) 100 mg DAILY PO Last administered on 10/27/18at 08:54; Start 10/25/18 at 11:00 Polyethylene Glycol (miraLAX PACKET) 17 gm DAILY PO Last administered on 10/26/18at 08:08; Start 10/25/18 at 11:00 Albuterol/ Ipratropium (Duoneb) 3 ml RTQID NEB Last administered on 10/27/18at 07:45; Start 10/25/18 at 12:00 Info (Anti-Coagulation Monitoring By Pharmacy) 1 each PRN DAILY PRN MC SEE COMMENTS Last administered on 10/25/18at 13:00; Start 10/25/18 at 12:45 Oxycodone/ Acetaminophen (Percocet 5/325) 1 tab PRN Q4HRS PRN PO PAIN severe Last administered on 10/26/18at 17:20; Start 10/25/18 at 14:00 Ketorolac Tromethamine (Toradol 15mg Vial) 15 mg PRN Q6HRS PRN IV PAIN; Start 10/25/18 at 14:00; Stop 10/25/18 at 14:14; Status DC Insulin Human Lispro (HumaLOG) 0-5 UNITS TIDWMEALS SQ ; Start 10/26/18 at 12:00 Dextrose (Dextrose 50%-Water Syringe) 12.5 gm PRN Q15MIN PRN IV SEE COMMENTS; Start 10/26/18 at 10:30 Dextrose 250 ml PRN Q15MIN PRN IV SEE COMMENTS; Start 10/26/18 at 10:30 Magnesium Hydroxide (Milk Of Magnesia) 2,400 mg 1X ONCE PO Last administered on 10/26/18at 11:57; Start 10/26/18 at 11:00; Stop 10/26/18 at 11:01; Status DC Sodium Monofluorophosphate (Fleet Adult) 133 ml DAILY PRN VT CONSTIPATION; Start 10/26/18 at 10:30 Sodium Monofluorophosphate (Fleet Adult) 133 ml 1X ONCE VT Last administered on 10/26/18at 18:35; Start 10/26/18 at 18:00; Stop 10/26/18 at 18:01; Status DC Lactulose (Lactulose) 20 gm BID PO Last administered on 10/27/18at 08:54; Start 10/26/18 at 18:00 Active Scripts Active Lidocaine PATCH (Lidocaine) 1 Each Adh..patch 1 Each TP DAILY 30 Days REMOVE AFTER 12 HOURS Ativan (Lorazepam) 1 Mg Tablet 1 Mg PO PRN BID PRN Tramadol Hcl 50 Mg Tablet 50 Mg PO Q6HRS PRN Doxycycline Hyclate 100 Mg Tablet 1 Tab PO BID Humalog (Insulin Lispro) 100 Unit/1 Ml Insuln.pen 0 Units SQ TIDWMEALS 30 Days Aspirin Ec (Aspirin) 81 Mg Tablet. 81 Mg PO DAILYWBKFT 30 Days Cyclobenzaprine Hcl 5 Mg Tablet 5 Mg PO PRN TID PRN Tramadol Hcl 50 Mg Tablet 50 Mg PO PRN Q6HRS PRN 6 Days Guaifenesin 100 Mg/5 Ml Liquid 200 Mg PO PRN Q4HRS PRN 30 Days Tylenol (Acetaminophen) 325 Mg Tablet 650 Mg PO PRN Q4HRS PRN 10 Days Ventolin Hfa Inhaler (Albuterol Sulfate) 18 Gm Hfa.aer.ad 2 Puff INH Q4HRS Reglan (Metoclopramide Hcl) 10 Mg Tablet 0.5 Tab PO QID 30 Days Reported Tizanidine Hcl 4 Mg Tablet 4 Mg PO QID PRN Azithromycin Tablet (Azithromycin) 500 Mg Tablet 500 Mg PO DAILY Xarelto (Rivaroxaban) 20 Mg Tablet 20 Mg PO DAILY Metformin Hcl 500 Mg Tablet 500 Mg PO DAILYWBKFT Pulmicort (Budesonide) 0.25 Mg/2 Ml Ampul.neb 1 Vial NEB BID Albuterol Sulfate Neb Soln (Albuterol Sulfate) 2.5 Mg/3 Ml Vial.neb 1 Vial NEB PRN Q2HR PRN Furosemide 40 Mg Tablet 1 Tab PO DAILY Vitamin D3 (Cholecalciferol (Vitamin D3)) 5,000 Unit Tablet 5,000 Unit PO DAILY Potassium Chloride 20 Meq Tablet.er 20 Meq PO DAILY Protonix (Pantoprazole Sodium) 20 Mg Tablet. 1 Tab PO DAILY Atorvastatin Calcium 10 Mg Tablet 10 Mg PO HS Symbicort 160-4.5 Mcg Inhaler (Budesonide/Formoterol Fumarate) 10.2 Gm Hfa.aer.ad 2 Puff IH BID Vitals/I & O Vital Sign - Last 24 Hours 10/26/18 10/26/18 10/26/18 10/26/18 10:30 11:00 11:03 15:00 Temp 98.1 98.5 98.1 98.5 Pulse 99 107 Resp 20 20 B/P (MAP) 112/75 (87) 122/80 (94) Pulse Ox 96 98 100 O2 Delivery Nasal Cannula Nasal Cannula Nasal Cannula Nasal Cannula O2 Flow Rate 3.0 3.0 3.0 3.0 10/26/18 10/26/18 10/26/18 10/26/18 15:09 17:20 18:12 19:00 Temp 98.2 98.2 Pulse 98 Resp 20 B/P (MAP) 110/67 (81) Pulse Ox 100 98 O2 Delivery Nasal Cannula Nasal Cannula Nasal Cannula Nasal Cannula O2 Flow Rate 3.0 3.0 3.0 10/26/18 10/26/18 10/26/18 10/26/18 19:30 19:58 22:08 23:02 Temp 98.0 98.0 Pulse 102 Resp 19 20 B/P (MAP) 119/75 (90) Pulse Ox 100 100 99 O2 Delivery Nasal Cannula Nasal Cannula Nasal Cannula Nasal Cannula O2 Flow Rate 3.0 3.0 3.0 10/26/18 10/27/18 10/27/18 10/27/18 23:56 03:07 07:00 07:46 Temp 98.6 98.0 98.6 98.0 Pulse 102 96 Resp 15 20 18 B/P (MAP) 125/77 (93) 117/73 (88) Pulse Ox 99 100 98 97 O2 Delivery Nasal Cannula Nasal Cannula Nasal Cannula Nasal Cannula O2 Flow Rate 3.0 3.0 3.0 10/27/18 08:00 Temp 98.0 98.0 Pulse 96 Resp 18 B/P (MAP) 117/73 (88) O2 Delivery Nasal Cannula O2 Flow Rate 3.0 Intake and Output 10/26/18 10/26/18 10/27/18 14:59 22:59 06:59 Intake Total 320 ml Output Total 300 ml 200 ml Balance 320 ml -300 ml -200 ml RAI DURANT MD Oct 27, 2018 09:38
[2018-10-27] MEDS: POLYETHYLENE GLYCOL 3350 17 GM PACKET. PO SCH (12:15)
[2018-10-27] MEDS: LIDOCAINE (700MG/PATCH) PATCH. TP SCH (12:15)
[2018-10-27] MEDS: PATCH REMOVAL. MC SCH (21:00)
[2018-10-27] MEDS: ATORVASTATIN CALCIUM 10 MG TABLET. PO SCH (21:03)
[2018-10-27] MEDS: MONTELUKAST SODIUM 10 MG TABLET. PO SCH (21:03)
--- NOTE | 2018-10-27 23:30 | NUR ---
RT Arielle informed this RN that she had just rounded on patient to see if he was ready to put on his BiPAP and go to sleep. RT reported that patient was sleeping when she entered the room and patient told her to come back around 0100, he was just resting his eyes. RN provided education and importance on wearing BiPAP. Patient verbalizes understanding but declines BiPAP at this time.
--- NOTE | 2018-10-28 01:15 | NUR ---
Patient called asking for his BiPAP to be put on. Paged RT, RT placed BiPAP. RT informed this RN that patient refused to wear BiPAP at ordered settings (14) and settings were reduced to 10. Will pass along to day RN and continue to monitor.
[2018-10-28] MEDS: ALBUTEROL SULFATE 2.5 MG/3 ML NEBU. NEB PRN (01:16)
[2018-10-28] MEDS: oxyCODONE/APAP 5/325 1 TAB TABLET PO PRN (01:19)
--- NOTE | 2018-10-28 01:44 | NUR ---
RT Guzmán informed this RN that patient's settings on his treatment card is listed differently than the order that appears in the computer. Settings on card are BiPAP 16/6 rate of 14 30% FiO2. Patient's BiPAP settings were changed to the settings on patient's treatment card. Will pass along to day RN and verify with ordering MD.
[2018-10-28 03:13] VITALS: BP 121/73
[2018-10-28 07:00] VITALS: BP 150/87
[2018-10-28] MEDS: IPRATRPIUM/ALBUTEROL 0.5/2.5MG 3 ML NEBU. NEB SCH ×2 (07:30→11:23)
[2018-10-28] MEDS: BUDESONIDE 0.5 MG/2 ML NEBU. NEB SCH (07:30)
[2018-10-28] MEDS: metFORMIN 500 MG TABLET PO SCH (08:00)
[2018-10-28] MEDS: INSULIN LISPRO 300 UNITS/3 ML VIAL. SQ SCH ×2 (08:00→12:00)
[2018-10-28] MEDS: DOCUSATE SODIUM 100 MG CAPSULE. PO SCH (08:23)
[2018-10-28] MEDS: LACTULOSE 20 GM/30 ML SOLUTION. PO SCH (08:23)
[2018-10-28] MEDS: PANTOPRAZOLE 40 MG TABLET.DR. PO SCH (08:23)
[2018-10-28] MEDS: POLYETHYLENE GLYCOL 3350 17 GM PACKET. PO SCH (08:23)
[2018-10-28] MEDS: guaiFENesin ORAL 200 MG/10 ML LIQUID. PO SCH (08:23)
[2018-10-28] MEDS: FUROSEMIDE 40 MG TABLET. PO SCH (08:24)
[2018-10-28] MEDS: ASPIRIN ENTERIC COATED 81 MG TABLET.DR. PO SCH (08:24)
[2018-10-28] MEDS: RIVAROXABAN 10 MG TABLET. PO SCH (08:24)
[2018-10-28] MEDS: POTASSIUM CHLORIDE 20 MEQ TABLET.ER. PO SCH (08:24)
[2018-10-28] MEDS: AZITHROMYCIN 250 MG TABLET. PO SCH (08:24)
[2018-10-28] MEDS: METOCLOPRAMIDE 5 MG TABLET. PO SCH (08:25)
[2018-10-28] MEDS: LIDOCAINE (700MG/PATCH) PATCH. TP SCH (08:25)
[2018-10-28] MEDS: PREGABALIN 25 MG CAPSULE PO SCH (08:25)
[2018-10-28] MEDS ORDERED: MONT10TA49 PO (08:25)
[2018-10-28] MEDS: predniSONE 10 MG TABLET PO SCH (08:25)
[2018-10-28] MEDS: CHOLECALCIFEROL (VITAMIN D3) 5,000 UNIT CAPSULE PO SCH (08:25)
[2018-10-28] MEDS ORDERED: BENZ100C PO (08:25)
[2018-10-28] MEDS: LACTOBACILLUS RHAMNOSUS GG 1 CAPSULE. PO SCH (08:25)
--- NOTE | 2018-10-28 08:26 | SNU/HH DC ---
DISCHARGE WITH HOME HEALTH DISCHARGE INFORMATION: Discharge Date: Oct 28, 2018 Final Diagnosis: Problems Medical Problems: (1) Microcytic anemia Status: Chronic Condition on Discharge: Stable CODE STATUS: Code Status: Full HOME HEALTH: Face to Face: I certify this patient is under my care and that I, or a nurse practitioner or physician's pediatric assistant working with me, had a face to face encounter that meets the physician face to face encounter requirements with this patient on []. RN For Eval/Treatment: Yes Physical Therapy For: Evalulation/Treatment Occupational Therapy For: Evaluation/Treatment Speech Language Pathology For: Evaluation/Treatment Home Health Aide For: Self-care REC THERAPIST For: Community Resources Pt Meets Homebound Status: Extreme weakness w/ amb. POST DISCHARGE ORDERS: Activity Instructions for Disc: Resume previous activity Weight Bearing Status after Di: No restrictions, As tolerated DIET AFTER DISCHARGE: Cardiac Wound/Incision Care: No wound care needed CHECKS AFTER DISCHARGE: Checks after discharge: Check blood press - daily, Check blood sugar, ac/hs, Weigh Yourself Daily FOLLOW-UP: PCP to follow Home Health: pulmo or pcp re advanced copd - q monthly ff up recommended TREATMENT/EQUIPMENT ORDERS: Adaptive Equipment Issued: None Discharge Respiratory Equipmen: Oxygen CERTIFICATION STATEMENT: Certification Statement: Certification Statement: Based on the above finding, I certify that this patient is confined to the home and needs intermittent penitentiary care, physical therapy and/or speech therapy, or continues to need occupational therapy.~ This patient is under my care, and I have initiated the establishment of the plan of care.~ This patient will be followed by myself or a community physician who will periodically review the plan of care. Home Meds Active Scripts Benzonatate (TESSALON PERLE) 100 Mg Capsule, 1 CAP PO TID for cough, #21 CAP Prov:RAI DURANT MD 10/28/18 Montelukast Sodium (MONTELUKAST SODIUM TABLET ) 10 Mg Tablet, 10 MG PO QHS for copd, #60 TAB Prov:RAI DURANT MD 10/28/18 Lidocaine (Lidocaine PATCH ) 1 Each Adh..patch, 1 EACH TP DAILY for FOR LOCAL PAIN for 30 Days, #30 PATCH REMOVE AFTER 12 HOURS Prov:RAI DURANT MD 09/11/18 Lorazepam (ATIVAN) 1 Mg Tablet, 1 MG PO PRN BID PRN for ANXIETY / AGITATION, #30 TAB Prov:RAI DURANT MD 09/11/18 Insulin Lispro (HUMALOG) 100 Unit/1 Ml Insuln.pen, 0 UNITS SQ TIDWMEALS for glucose for 30 Days, #1 EACH Prov:TOMAS BAIG MD 08/28/18 Aspirin (ASPIRIN EC) 81 Mg Tablet.dr, 81 MG PO DAILYWBKFT for heart for 30 Days, #30 TAB.SR Prov:TOMAS BAGI MD 08/28/18 Cyclobenzaprine Hcl (CYCLOBENZAPRINE HCL) 5 Mg Tablet, 5 MG PO PRN TID PRN for PAIN, #15 TAB Prov:TEVIN GOODWIN MD 08/20/18 Tramadol Hcl (TRAMADOL HCL) 50 Mg Tablet, 50 MG PO PRN Q6HRS PRN for PAIN for 6 Days, #24 TAB Prov:KIRSTIE TREVINO MD 07/12/18 Guaifenesin (GUAIFENESIN) 100 Mg/5 Ml Liquid, 200 MG PO PRN Q4HRS PRN for COUGH for 30 Days, #120 LIQUID Prov:TOMAS BAIG MD 05/30/18 Acetaminophen (TYLENOL) 325 Mg Tablet, 650 MG PO PRN Q4HRS PRN for TEMP OVER 10 0.4F OR MILD PAIN for 10 Days, #30 TAB Prov:TOMAS BAIG MD 05/30/18 Albuterol Sulfate (VENTOLIN HFA INHALER) 18 Gm Hfa.aer.ad, 2 PUFF INH Q4HRS for FOR ASTHMA, #1 INHALER 0 Refills Prov:SD JON APRN 05/10/18 Metoclopramide Hcl (REGLAN) 10 Mg Tablet, 0.5 TAB PO QID for gerd for 30 Days, #60 TAB Prov:TOMAS BAIG MD 02/14/18 Reported Medications Rivaroxaban (XARELTO) 20 Mg Tablet, 20 MG PO DAILY for stroke prevention, TAB 09/09/18 Metformin Hcl (METFORMIN HCL) 500 Mg Tablet, 500 MG PO DAILYWBKFT for ANTI- DIABETIC, TAB 0 Refills 09/09/18 Budesonide (PULMICORT) 0.25 Mg/2 Ml Ampul.neb, 1 VIAL NEB BID for SHORT OF BREATH, #30 VIAL 08/25/18 Albuterol Sulfate (ALBUTEROL SULFATE NEB SOLN) 2.5 Mg/3 Ml Vial.neb, 1 VIAL NEB PRN Q2HR PRN for SEDATION, #50 VIAL 08/25/18 Furosemide (FUROSEMIDE) 40 Mg Tablet, 1 TAB PO DAILY for water, #30 TAB 5 Refills 06/20/18 Cholecalciferol (Vitamin D3) (VITAMIN D3) 5,000 Unit Tablet, 5000 UNIT PO DAILY for supplement, TAB 03/15/18 Potassium Chloride (POTASSIUM CHLORIDE) 20 Meq Tablet.er, 20 MEQ PO DAILY for supplement, TAB.SR 01/13/18 Pantoprazole Sodium (PROTONIX) 20 Mg Tablet.dr, 1 TAB PO DAILY, #30 TAB 11/18/17 Atorvastatin Calcium (ATORVASTATIN CALCIUM) 10 Mg Tablet, 10 MG PO HS for FOR CHOLESTEROL, #30 TAB 0 Refills 08/21/17 Budesonide/Formoterol Fumarate (SYMBICORT 160-4.5 MCG INHALER) 10.2 Gm Hfa.aer.ad, 2 PUFF IH BID, #10.6 GM 3 Refills 09/21/15 Discontinued Reported Medications Tizanidine Hcl (TIZANIDINE HCL) 4 Mg Tablet, 4 MG PO QID PRN for MUSCLE SPASMS, TAB 09/09/18 Azithromycin (AZITHROMYCIN TABLET) 500 Mg Tablet, 500 MG PO DAILY for Chronic PNA, TAB 0 Refills 09/09/18 Discontinued Scripts Tramadol Hcl (TRAMADOL HCL) 50 Mg Tablet, 50 MG PO Q6HRS PRN for PAIN, #10 TAB Prov:MAURA SEGURA APRN 09/08/18 Doxycycline Hyclate (DOXYCYCLINE HYCLATE) 100 Mg Tablet, 1 TAB PO BID, #20 TAB Prov:MAURA SEGURA APRN 09/08/18 RAI DURANT MD Oct 28, 2018 08:26
[2018-10-28] MEDS ORDERED: IPRA3AMP29 NEB (10:20)
--- NOTE | 2018-10-28 10:23 | PDOC3 ---
Discharge Summary Visit Information Date of Admission: Oct 24, 2018 Date of Discharge: Oct 28, 2018 Admitting Diagnosis Comment: 1. Advanced copd with freq hospitalizations, not ready for hospice, COPD flare, no HCAP on CXR 2. Distant tobaccoism 3. Weight loss 4. Steroid induced skin dermatitis 5. 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 Microcytic anemia, stable 7. COnstipation Final Diagnosis Problems Medical Problems: (1) Microcytic anemia Status: Chronic Brief Hospital Course Allergies Allergies Coded Allergies Type Severity Reaction Last Updated Verified No Known Medication Allergies Allergy Unknown 08/26/18 Yes Vital Signs Vital Signs Date Time Temp Pulse Resp B/P (MAP) Pulse Ox O2 Delivery O2 Flow Rate FiO2 10/28/18 08:00 Nasal Cannula 3.0 10/28/18 07:31 100 10/28/18 07:00 97.8 82 18 150/87 (108) 97.8 Lab Results Laboratory Tests Test 10/26/18 11:25 10/26/18 16:40 10/26/18 20:34 10/27/18 07:36 Glucose (Fingerstick) 105 mg/dL (70-99) 121 mg/dL (70-99) 126 mg/dL (70-99) 88 mg/dL (70-99) Test 10/27/18 11:52 10/27/18 16:49 10/27/18 20:14 10/28/18 07:23 Glucose (Fingerstick) 134 mg/dL (70-99) 138 mg/dL (70-99) 170 mg/dL (70-99) 102 mg/dL (70-99) Laboratory Tests Test 10/27/18 11:52 10/27/18 16:49 10/27/18 20:14 10/28/18 07:23 Glucose (Fingerstick) 134 mg/dL (70-99) 138 mg/dL (70-99) 170 mg/dL (70-99) 102 mg/dL (70-99) Brief Hospital Course Mr. Nash is a 58 old AA male, freq flier bec of advanced COPD< no pNA on CXR, Recently was admitted at [facility], on O2 home dependent, co managed pulmo, STayed over the weekend with us, new rx singulair, duonebs, steroid taper, no need for abx, NEeds SNU but does nt want snu or HH Home with sister today PRoc; None, cxr consults: Pulmo Discharge Information Condition at Discharge: Improved, Stable Disposition/Orders: D/C to Home Scheduled Albuterol Sulfate (Ventolin Hfa Inhaler) 18 Gm Hfa.aer.ad, 2 PUFF INH Q4HRS for FOR ASTHMA, #1 Ref 0 Prescribed by: Crys Guthrie APRN on 05/10/18 192 Last Action: Converted on 10/24/18239 by JACE SANCHEZ RN Aspirin (Aspirin Ec) 81 Mg Tablet.dr, 81 MG PO DAILYWBKFT for heart for 30 Days, #30 Prescribed by: TOMAS BAIG MD on 08/28/18 1231 Last Action: Continued on 10/24/18239 by JACE SANCHEZ RN Atorvastatin Calcium (Atorvastatin Calcium) 10 Mg Tablet, 10 MG PO HS for FOR CHOLESTEROL, #30 Ref 0 (Reported) Entered as Reported by: Romero Bland on 08/21/17245 Last Action: Continued on 10/24/18239 by JACE SANCHEZ RN Benzonatate (Tessalon Perle) 100 Mg Capsule, 1 CAP PO TID for cough, #21 Prescribed by: RAI DURANT on 10/28/18 0825 Budesonide (Pulmicort) 0.25 Mg/2 Ml Ampul.neb, 1 VIAL NEB BID for SHORT OF BREATH, #30 (Reported) Entered as Reported by: VINH MURILLO on 08/25/18 2310 Last Action: Converted on 10/24/18239 by JACE SANCHEZ RN Budesonide/Formoterol Fumarate (Symbicort 160-4.5 Mcg Inhaler) 10.2 Gm Hfa.aer.ad, 2 PUFF IH BID, #10.6 Ref 3 (Reported) Entered as Reported by: IMELDA PENNY on 09/21/152225 Last Action: Converted on 10/24/18239 by JACE SANCHEZ RN Cholecalciferol (Vitamin D3) (Vitamin D3) 5,000 Unit Tablet, 5,000 UNIT PO DAILY for supplement, (Reported) Entered as Reported by: DOE NAGY on 03/15/182132 Last Action: Converted on 10/24/18239 by JACE SANCHEZ RN Furosemide (Furosemide) 40 Mg Tablet, 1 TAB PO DAILY for water, #30 Ref 5 (Reported) Entered as Reported by: Romero Bland on 06/20/182043 Last Action: Continued on 10/24/18239 by JACE SANCHEZ RN Insulin Lispro (Humalog) 100 Unit/1 Ml Insuln.pen, 0 UNITS SQ TIDWMEALS for glucose for 30 Days, #1 Prescribed by: TOMAS BAIG MD on 08/28/18 1231 Last Action: Continued on 10/24/18239 by JACE SANCHEZ RN Ipratropium/Albuterol Sulfate (Duoneb 0.5-3(2.5) Mg/3 Ml) 3 Ml Ampul.neb, 3 ML NEB QID for copd, #120 Prescribed by: RAI DURANT on 10/28/18 1020 Lidocaine (Lidocaine PATCH ) 1 Each Adh..patch, 1 EACH TP DAILY for FOR LOCAL PAIN for 30 Days, #30 REMOVE AFTER 12 HOURS Prescribed by: RAI DURANT on 09/11/18 1058 Last Action: Continued on 10/24/18239 by JACE SANCHEZ RN Metformin Hcl (Metformin Hcl) 500 Mg Tablet, 500 MG PO DAILYWBKFT for ANTI- DIABETIC, Ref 0 (Reported) Entered as Reported by: MONICO SIEGEL on 09/09/18 1418 Last Action: Continued on 10/24/18239 by JACE SANCHEZ RN Metoclopramide Hcl (Reglan) 10 Mg Tablet, 0.5 TAB PO QID for gerd for 30 Days, #60 Prescribed by: TOMAS BAIG MD on 02/14/18 1437 Last Action: Continued on 10/24/18239 by JACE SANCHEZ RN Montelukast Sodium (Montelukast Sodium Tablet ) 10 Mg Tablet, 10 MG PO QHS for copd, #60 Prescribed by: RAI DURANT on 10/28/18 0825 Pantoprazole Sodium (Protonix) 20 Mg Tablet.dr, 1 TAB PO DAILY, #30 (Reported) Entered as Reported by: FREDA SUAREZ on 11/18/17 1031 Last Action: Converted on 10/24/18239 by JACE SANCHEZ RN Potassium Chloride (Potassium Chloride) 20 Meq Tablet.er, 20 MEQ PO DAILY for supplement, (Reported) Entered as Reported by: NANCY CHAPMAN on 01/13/182020 Last Action: Converted on 10/24/18239 by JACE SANCHEZ RN Rivaroxaban (Xarelto) 20 Mg Tablet, 20 MG PO DAILY for stroke prevention, (Reported) Entered as Reported by: MONICO SIEGEL on 09/09/18 1418 Last Action: Converted on 10/24/18239 by JACE SANCHEZ RN Scheduled PRN Acetaminophen (Tylenol) 325 Mg Tablet, 650 MG PO PRN Q4HRS PRN for TEMP OVER 100.4F OR MILD PAIN for 10 Days, #30 Prescribed by: TOMAS BAIG MD on 05/30/181644 Last Action: Continued on 10/24/18239 by JACE SANCHEZ RN Albuterol Sulfate (Albuterol Sulfate Neb Soln) 2.5 Mg/3 Ml Vial.neb, 1 VIAL NEB PRN Q2HR PRN for SEDATION, #50 (Reported) Entered as Reported by: VINH MURILLO on 08/25/182309 Last Action: Reviewed on 10/24/18127 by JACE SANCHEZ RN Cyclobenzaprine Hcl (Cyclobenzaprine Hcl) 5 Mg Tablet, 5 MG PO PRN TID PRN for PAIN, #15 Prescribed by: TEVIN GOODWIN MD on 08/20/18218 Guaifenesin (Guaifenesin) 100 Mg/5 Ml Liquid, 200 MG PO PRN Q4HRS PRN for COUGH for 30 Days, #120 Prescribed by: TOMAS BAIG MD on 05/30/181644 Last Action: Continued on 10/24/18239 by JACE SANCHEZ RN Lorazepam (Ativan) 1 Mg Tablet, 1 MG PO PRN BID PRN for ANXIETY / AGITATION, #30 Prescribed by: RAI DURANT on 09/11/18 0914 Last Action: Continued on 10/24/18239 by JACE SANCHEZ RN Tramadol Hcl (Tramadol Hcl) 50 Mg Tablet, 50 MG PO PRN Q6HRS PRN for PAIN for 6 Days, #24 Prescribed by: KIRSTIE TREVINO MD on 07/12/18 1108 Last Action: Continued on 10/24/18239 by JACE SANCHEZ RN Discontinued Medications Azithromycin (Azithromycin Tablet) 500 Mg Tablet, 500 MG PO DAILY for Chronic PNA, Ref 0 (Reported) Entered as Reported by: MONICO SIEGEL on 09/09/181417 Last Action: Converted on 10/24/18239 by JACE SANCHEZ RN Doxycycline Hyclate (Doxycycline Hyclate) 100 Mg Tablet, 1 TAB PO BID, #20 Prescribed by: MAURA SEGURA APRN on 09/08/182000 Last Action: Continued on 10/24/18239 by JACE SANCHEZ RN Tizanidine Hcl (Tizanidine Hcl) 4 Mg Tablet, 4 MG PO QID PRN for MUSCLE SPASMS, (Reported) Entered as Reported by: MONICO SIEGEL on 09/09/181417 Tramadol Hcl (Tramadol Hcl) 50 Mg Tablet, 50 MG PO Q6HRS PRN for PAIN, #10 Prescribed by: MAURA SEGURA APRN on 09/08/182035 RAI DURANT MD Oct 28, 2018 10:23
[2018-10-28 10:54] VITALS: BP 145/82
--- NOTE | 2018-10-28 12:18 | PDOC ---
PULMONARY PROGRESS NOTES Subjective Reports being able to have BM today and yesterday. Remains on home oxygen of 3 liters N/C. Denies any increased SOB. reports decrease in cough. Still non- productive in nature. Reports overall feeling better today. Additionally, was not able to rest last night and didn't tolerate wearing BIPAP overnight. Vitals Vital Signs Date Time Temp Pulse Resp B/P (MAP) Pulse Ox O2 Delivery O2 Flow Rate FiO2 10/28/18 11:25 Nasal Cannula 3.0 10/28/18 10:54 97.8 80 18 145/82 (103) 96 97.8 ROS: No Nausea, No Increase Cough General: Alert, Oriented X4, No acute distress Lungs: Wheezing (ex. RUL, RML), Other (dimished in base ) Cardiovascular: S1, S2 Abdomen: Soft, Non-tender Neuro Exam: Alert, Oriented, Normal Speech Extremities: No Edema Skin: Warm, Dry Labs Laboratory Tests Test 10/26/18 16:40 10/26/18 20:34 10/27/18 07:36 10/27/18 11:52 Glucose (Fingerstick) 121 mg/dL (70-99) 126 mg/dL (70-99) 88 mg/dL (70-99) 134 mg/dL (70-99) Test 10/27/18 16:49 10/27/18 20:14 10/28/18 07:23 10/28/18 11:19 Glucose (Fingerstick) 138 mg/dL (70-99) 170 mg/dL (70-99) 102 mg/dL (70-99) 155 mg/dL (70-99) Laboratory Tests Test 10/27/18 16:49 10/27/18 20:14 10/28/18 07:23 10/28/18 11:19 Glucose (Fingerstick) 138 mg/dL (70-99) 170 mg/dL (70-99) 102 mg/dL (70-99) 155 mg/dL (70-99) Medications Active Scripts Medications Dose Route/Sig Max Daily Dose Days Date Category Dose Instructions Lidocaine PATCH (Lidocaine) 1 Each Adh..patch 1 Each TP DAILY 30 09/11/18 Rx REMOVE AFTER 12 HOURS Ativan (Lorazepam) 1 Mg Tablet 1 Mg PO PRN BID PRN 09/11/18 Rx Tizanidine Hcl 4 Mg Tablet 4 Mg PO QID PRN 09/09/18 Reported Azithromycin Tablet (Azithromycin) 500 Mg Tablet 500 Mg PO DAILY 09/09/18 Reported Xarelto (Rivaroxaban) 20 Mg Tablet 20 Mg PO DAILY 09/09/18 Reported Metformin Hcl 500 Mg Tablet 500 Mg PO DAILYWBKFT 09/09/18 Reported Tramadol Hcl 50 Mg Tablet 50 Mg PO Q6HRS PRN 09/08/18 Rx Doxycycline Hyclate 100 Mg Tablet 1 Tab PO BID 09/08/18 Rx Humalog (Insulin Lispro) 100 Unit/1 Ml Insuln.pen 0 Units SQ TIDWMEALS 30 08/28/18 Rx Aspirin Ec (Aspirin) 81 Mg Tablet.dr 81 Mg PO DAILYWBKFT 30 08/28/18 Rx Pulmicort (Budesonide) 0.25 Mg/2 Ml Ampul.neb 1 Vial NEB BID 08/25/18 Reported Albuterol Sulfate Neb Soln (Albuterol Sulfate) 2.5 Mg/3 Ml Vial.neb 1 Vial NEB PRN Q2HR PRN 08/25/18 Reported Cyclobenzaprine Hcl 5 Mg Tablet 5 Mg PO PRN TID PRN 08/20/18 Rx Tramadol Hcl 50 Mg Tablet 50 Mg PO PRN Q6HRS PRN 6 07/12/18 Rx Furosemide 40 Mg Tablet 1 Tab PO DAILY 06/20/18 Reported Guaifenesin 100 Mg/5 Ml Liquid 200 Mg PO PRN Q4HRS PRN 30 05/30/18 Rx Tylenol (Acetaminophen) 325 Mg Tablet 650 Mg PO PRN Q4HRS PRN 10 05/30/18 Rx Ventolin Hfa Inhaler (Albuterol Sulfate) 18 Gm Hfa.aer.ad 2 Puff INH Q4HRS 05/10/18 Rx Vitamin D3 (Cholecalciferol (Vitamin D3)) 5,000 Unit Tablet 5,000 Unit PO DAILY 03/15/18 Reported Reglan (Metoclopramide Hcl) 10 Mg Tablet 0.5 Tab PO QID 30 02/14/18 Rx Potassium Chloride 20 Meq Tablet.er 20 Meq PO DAILY 01/13/18 Reported Protonix (Pantoprazole Sodium) 20 Mg Tablet.dr 1 Tab PO DAILY 11/18/17 Reported Atorvastatin Calcium 10 Mg Tablet 10 Mg PO HS 08/21/17 Reported Symbicort 160-4.5 Mcg Inhaler (Budesonide/Formoterol Fumarate) 10.2 Gm Hfa.aer.ad 2 Puff IH BID 09/21/15 Reported Impression . 1. Acute on chronic respiratory failure secondary to multifactorial: end stage COPD with ex. in combination with constipation/abdominal fullness 2. End-stage COPD with significant bullous disease on left side: not a candidate for bullectomy or lung transplant evaluated by [facility] in the past 3. Abnormal chest X-ray however unchanged for him 4. Hx. of PE however CTA at [facility] 10/13/18 was (-) remains on [place] 5. DM II Plan . 1. Continue with present oxygen at 3 liter, continue steroids and azithro 2. The patient has home CPAP, cont. BIPAP at HS 3. Continue present DuoNebs. 4. Minimize the use of narcotics as it would slow down his bowels 5. Continue Xarelto. 6. DM II under good control: recs per IM 7. We will follow along with you. 8. Patient is DNR 9. Discussed with SERGEY doe home today VIN MEAD MD Oct 28, 2018 12:18
--- NOTE | 2018-10-28 12:24 | NUR ---
SW following pt. Per Aline and Amari, Pt does not qualify for home trilogy due to ABG results. Discussed with pt about home health but he declined. Pt has transport to take him home and Aline has provided him with a tank to take home. D/W RN and Physician.
--- NOTE | 2018-10-28 13:29 | NUR ---
Discharge Note: PT DISCHARGED HOME WITH SELF CARE. PT LEFT FACILITY VIA PRIVATE VEHICLE WITH FRIEND AT 1240. PT STABLE AND ALERT UPON DISCHARGE. PT EDUCATED ABOUT DISCHARGE MEDICATIONS, DISCHARGE INSTRUCTIONS, AND FOLLOW-UP INSTRUCTIONS. PT GIVEN BACK MEDICATIONS THAT WERE DOWN IN PHARMACY. PT LEFT WITH PORTABLE O2 TANK THAT WAS PROVIDED. PT VOICED NO CONCERNS AT THIS TIME. DESTINY JONES Discharge instructions and discharge home medications reviewed with Patient and a copy given. All questions have been answered and understanding verbalized.
== END 2018-10-28 13:32 | disposition home or self-care (01) | DRG 190 ==
LOC: ER 23:01 → 5 SOUTH 23:41
PROVIDERS: ADMIT Internal Medicine; ATTEND Internal Medicine
PROC: 5A09357 Assistance with Respiratory Ventilation, Less than 24 Consecutive Hours, Continuous Positive Airway Pressure (ICD-10-PCS; principal; 2018-10-28)
DX: J44.1 Chronic obstructive pulmonary disease with (acute) exacerbation (principal); J96.20 Acute and chronic respiratory failure, unspecified whether with hypoxia or hypercapnia; E22.2 Syndrome of inappropriate secretion of antidiuretic hormone; I13.0 Hypertensive heart and chronic kidney disease with heart failure and stage 1 through stage 4 chronic kidney disease, or unspecified chronic kidney disease; D50.9 Iron deficiency anemia, unspecified; E11.22 Type 2 diabetes mellitus with diabetic chronic kidney disease; E78.5 Hyperlipidemia, unspecified; F17.200 Nicotine dependence, unspecified, uncomplicated; F41.9 Anxiety disorder, unspecified; I50.9 Heart failure, unspecified; J43.9 Emphysema, unspecified; K21.9 Gastro-esophageal reflux disease without esophagitis; K59.00 Constipation, unspecified; L30.9 Dermatitis, unspecified; M81.0 Age-related osteoporosis without current pathological fracture; N18.9 Chronic kidney disease, unspecified; T38.0X5A Adverse effect of glucocorticoids and synthetic analogues, initial encounter; Z82.49 Family history of ischemic heart disease and other diseases of the circulatory system; Z82.5 Family history of asthma and other chronic lower respiratory diseases; Z86.711 Personal history of pulmonary embolism; Z99.81 Dependence on supplemental oxygen; M19.90 Unspecified osteoarthritis, unspecified site
CPT/HCPCS: 36415; 36600; 71045; 71046; 74018; 80048; 80053; 82553; 82805; 82962; 83735; 83880; 84484; 85007; 85025; 93005; 94640; 94660; 94760; 96374; 96375; J1815; J2270; J2930; J7512; J7613; J7620; J7626; J8597; Q0144; 97110; 97116; 97530; 97535; 99285-25; G0378

== ENCOUNTER 2018-10-29 16:02 | Inpatient (IN) | payer MEDICARE, MEDICAID ==
[~2018-10-29] VITALS: Ht 180.3 cm; Wt 63.0 kg
[~2018-10-29 16:02] MED LIST changes: +IPRA3AMP29 NEB; +MONT10TA49 PO
--- NOTE | 2018-10-29 16:54 | PHYS DOC ---
Past Medical History Past Medical History: Anxiety, Bronchitis, CHF, COPD Additional Past Medical Histor: EMPHYSEMA, OSTEOPOROSIS Past Surgical History: No Surgical History Additional Past Surgical Histo: HERNIA REPAIR Alcohol Use: None Drug Use: None Adult General Chief Complaint Chief Complaint: [facility] HPI Patient is a 58 year old Male who presents with history of COPD and was at his sister's house where there was no air conditioning. Patient states that all the hot air heat of the fans blowing made his COPD worse. Patient states he's been doing nebulizer and albuterol treatments and using his inhaler and he is even increased his prednisone from 10 mg a day to almost 30 mg a day and he is still having problems breathing. Patient states he feels extremely tight in the chest. Patient states he up his oxygen at home. Patient states usually wears 3 L of oxygen. In the ER he is on 2 L and satting at 95%. Review of Systems Review of Systems Constitutional: Denies fever or chills [] Respiratory: cough or shortness of breath [] Cardiovascular: No additional information not addressed in HPI [] All other systems were reviewed and found to be within normal limits, except as documented in this note. Current Medications Current Medications Current Medications Medications (Trade) Dose Ordered Sig/Candy Start Time Stop Time Status Last Admin Dose Admin Albuterol Sulfate (Ventolin Neb Soln) 2.5 mg 1X ONCE 10/29/18 17:00 10/29/18 17:01 DC 10/29/18 17:01 2.5 MG Methylprednisolone Sodium Succinate (SOLU-Medrol 125MG VIAL) 62.5 mg 1X ONCE 10/29/18 17:00 10/29/18 17:01 DC 10/29/18 17:56 62.5 MG Allergies Allergies Allergies Coded Allergies Type Severity Reaction Last Updated Verified No Known Medication Allergies Allergy Unknown 08/26/18 Yes Physical Exam Physical Exam Constitutional: Well developed, well nourished, no acute distress, non-toxic appearance. [] Eyes: PERRLA, EOMI, conjunctiva normal, no discharge. [] Cardiovascular:Heart rate regular rhythm, no murmur [] Lungs & Thorax: Bilateral breath sounds clear to auscultation [] Skin: Warm, dry, no erythema, no rash. [] Back: No tenderness, no CVA tenderness. [] Extremities: No tenderness, no cyanosis, no clubbing, ROM intact, bilateral lower extremity 1+ edema. [] Neurologic: Alert and oriented X 3, normal motor function, normal sensory function, no focal deficits noted. [] Psychologic: Affect normal, judgement normal, mood normal. [] Current Patient Data Vital Signs Vital Signs Date Time Temp Pulse Resp B/P (MAP) Pulse Ox O2 Delivery O2 Flow Rate FiO2 10/29/18 17:03 98 Nasal Cannula 2.0 10/29/18 16:02 99.2 107 15 119/76 (90) 99.2 Lab Values Laboratory Tests Test 10/29/18 17:09 White Blood Count 6.3 x10^3/uL (4.0-11.0) Red Blood Count 3.85 x10^6/uL (4.30-5.70) L Hemoglobin 8.6 g/dL (13.0-17.5) L Hematocrit 28.0 % (39.0-53.0) L Mean Corpuscular Volume 73 fL (79-100) L Mean Corpuscular Hemoglobin 22 pg (25-35) L Mean Corpuscular Hemoglobin Concent 31 g/dL (31-37) Red Cell Distribution Width 20.4 % (11.5-14.5) H Platelet Count 327 x10^3/uL (140-400) Neutrophils (%) (Auto) 83 % (31-73) H Lymphocytes (%) (Auto) 7 % (24-48) L Monocytes (%) (Auto) 8 % (0-9) Eosinophils (%) (Auto) 0 % (0-3) Basophils (%) (Auto) 2 % (0-3) Neutrophils # (Auto) 5.2 x10^3/uL (1.8-7.7) Lymphocytes # (Auto) 0.5 x10^3/uL (1.0-4.8) L Monocytes # (Auto) 0.5 x10^3/uL (0.0-1.1) Eosinophils # (Auto) 0.0 x10^3/uL (0.0-0.7) Basophils # (Auto) 0.1 x10^3/uL (0.0-0.2) Platelet Estimate Adequate (ADEQUATE) Hypochromasia Slight Anisocytosis Mod Microcytosis Slight Prothrombin Time 21.0 SEC (11.7-14.0) H Prothrombin Time INR 1.8 (0.8-1.1) H Sodium Level 141 mmol/L (136-145) Potassium Level 4.0 mmol/L (3.5-5.1) Chloride Level 101 mmol/L (98-107) Carbon Dioxide Level 34 mmol/L (21-32) H Anion Gap 6 (6-14) Blood Urea Nitrogen 12 mg/dL (8-26) Creatinine 1.1 mg/dL (0.7-1.3) Estimated GFR (Cockcroft-Gault) 82.9 BUN/Creatinine Ratio 11 (6-20) Glucose Level 101 mg/dL (70-99) H Calcium Level 9.5 mg/dL (8.5-10.1) Total Bilirubin 0.7 mg/dL (0.2-1.0) Aspartate Amino Transferase (AST) 23 U/L (15-37) Alanine Aminotransferase (ALT) 29 U/L (16-63) Alkaline Phosphatase 113 U/L (46-116) Troponin I Quantitative < 0.017 ng/mL (0.000-0.055) OP-Cny-W-Type Natriuretic Peptide 101 pg/mL (0-124) Total Protein 7.4 g/dL (6.4-8.2) Albumin 4.1 g/dL (3.4-5.0) Albumin/Globulin Ratio 1.2 (1.0-1.7) Laboratory Tests 10/29/18 17:09 Laboratory Tests 10/29/18 17:09 EKG EKG Sinus Rhythm and no STEMI[] Interpretation Time: [address] Manning Radiology/Procedures Radiology/Procedures [] Impressions: [facility] [address] [place], [place] [id number] IMAGING REPORT Signed PATIENT: KAYLA JONES ACCOUNT: [id number] : 1960 LOCATION: ER AGE: 58 SEX: M EXAM STATUS: REG ER ORD. PHYSICIAN: MAURA SEGURA APRN REASON: soa PROCEDURE: CHEST PA & LATERAL CHEST PA LATERAL History: Shortness of breath Comparison: 10/24/2018 frontal view of the chest. Findings: The cardiomediastinal silhouette is normal. Significant bullous involvement of the left upper lung field.. Pulmonary vasculature is normal. Minimal bibasilar atelectasis improvement in bibasilar aeration is noted. Thickening of the lung basilar interstitium is notably decreased. Pulmonary hyperinflation is identified. No pneumothorax is seen. Decreased costophrenic angle blunting. There is no acute bone abnormality. IMPRESSION: Notable improvement in bibasilar pulmonary aeration with decreased interstitial thickening and decreased pleural effusions. COPD. Electronically signed by: Carlos Roth MD (10/29/2018 5:43 PM) [facility] DICTATED and SIGNED BY: CARLOS ROTH MD DATE: 10/29/18 1741 Course & Med Decision Making Course & Med Decision Making Patient is a 58 year old Male who presents with history of COPD and was at his sister's house where there was no air conditioning. Patient states that all the hot air heat of the fans blowing made his COPD worse. Patient states he's been doing nebulizer and albuterol treatments and using his inhaler and he is even increased his prednisone from 10 mg a day to 30 mg a day and he is still having problems breathing. Patient states he feels extremely tight in the chest. Patient states he up his oxygen at home. Patient states usually wears 3 L of oxygen. In the ER he is on 2 L and satting at 95%. Alert and oriented. Speaks in clear sentences. Ambulatory with steady gait. Mucous membranes moist. Skin pink warm and dry. EKG shows sinus rhythm and no STEMI. 1+ bilateral lower extremity edema. Lungs are diminished in all lobes. Patient denies chest pain, nausea, vomiting, abdominal pain, diarrhea, dizziness, numbness or tingling, syncope, headache, fever, recent illness, dysuria. Patient is admitted for COPD exacerbation. Patient states he is feeling better but his chest is tight. Patient's status remains the same. I have spoken to Dr. Angeles and the patient is admitted. Todd Disclaimer Todd Disclaimer This electronic medical record was generated, in whole or in part, using a voice recognition dictation system. Departure Departure Impression: Primary Impression: COPD exacerbation Disposition: ADMITTED INPATIENT Admitting Physician: HIMS Condition: STABLE Referrals: UNKNOWN PCP NAME (PCP) MAURA SEGURA [employer] Oct 29, 2018 16:54
[2018-10-29] MEDS ORDERED: ALBUTEROL SULFATE 2.5 MG/3 ML NEBU. NEB ONE (17:00)
[2018-10-29] MEDS ORDERED: methylPREDNISolone SOD SUCC PF 125 MG/2 ML VIAL. IV ONE (17:00)
[2018-10-29 17:25] LABS: BASO # 0.1 x10^3/uL (0.0-0.2); BASO % 2 % (0-3); EOS % 0 % (0-3); HEMOGLOBIN 8.6 g/dL (13.0-17.5); LYMPH # 0.5 x10^3/uL (1.0-4.8); LYMPH % 7 % (24-48); MEAN CORPUSCULAR HEMOGLOBIN 22 pg (25-35); MEAN CORPUSCULAR HGB CONC 31 g/dL (31-37); MEAN CORPUSCULAR VOLUME 73 fL (79-100); MONO # 0.5 x10^3/uL (0.0-1.1); MONO % 8 % (0-9); NEUT # 5.2 x10^3/uL (1.8-7.7); NEUT % 83 % (31-73); PLATELET COUNT 327 x10^3/uL (140-400); RED BLOOD COUNT 3.85 x10^6/uL (4.30-5.70); RED CELL DISTRIBUTION WIDTH 20.4 % (11.5-14.5); WHITE BLOOD COUNT 6.3 x10^3/uL (4.0-11.0)
[2018-10-29 17:31] LABS: CALCIUM 9.5 mg/dL (8.5-10.1); CREATININE 1.1 mg/dL (0.7-1.3); GFR 82.9
[2018-10-29 17:37] LABS: ALBUMIN 4.1 g/dL (3.4-5.0); ALBUMIN/GLOBULIN RATIO 1.2 (1.0-1.7); TOTAL BILIRUBIN 0.7 mg/dL (0.2-1.0); TOTAL PROTEIN 7.4 g/dL (6.4-8.2)
--- NOTE | 2018-10-29 17:46 | RAD ---
CHEST PA LATERAL History: Shortness of breath Comparison: 10/24/2018 frontal view of the chest. Findings: The cardiomediastinal silhouette is normal. Significant bullous involvement of the left upper lung field.. Pulmonary vasculature is normal. Minimal bibasilar atelectasis improvement in bibasilar aeration is noted. Thickening of the lung basilar interstitium is notably decreased. Pulmonary hyperinflation is identified. No pneumothorax is seen. Decreased costophrenic angle blunting. There is no acute bone abnormality. IMPRESSION: Notable improvement in bibasilar pulmonary aeration with decreased interstitial thickening and decreased pleural effusions. COPD. Electronically signed by: Carlos Lorenzana MD (10/29/2018 5:43 PM) [facility]
[2018-10-29 18:40] LABS: PLT ESTIMATE ADEQUATE (ADEQUATE)
[2018-10-29 18:41] LABS: ANISOCYTOSIS MOD; HYPOCHROMIA SLIGHT; MICROCYTOSIS SLIGHT
--- NOTE | 2018-10-29 19:02 | EKG ---
[facility] [address] [place] [address] Test Date: 2018-10-29 Test Time: 16:49:15 Pat Name: KAYLA JONES Department: Room: Gender: Manager Social Responsibility: : 1960 Requested By: MAURA SEGURA Order Number: [id number] Reading MD: Measurements Intervals Universal Rate: 96 P: 62 OR: 168 QRS: 27 QRSD: 84 T: 60 QT: 352 QTc: 451 Interpretive Statements SINUS RHYTHM NORMAL ECG No previous ECG available for comparison
[2018-10-29] MEDS ORDERED: fentaNYL PF VIAL 100 MCG/2 ML VIAL IV PRN (20:00)
[2018-10-29] MEDS ORDERED: ONDANSETRON PF 4 MG/2 ML VIAL. IV PRN (20:00)
[2018-10-29] MEDS: IPRATRPIUM/ALBUTEROL 0.5/2.5MG 3 ML NEBU. NEB SCH (20:04)
[2018-10-29] MEDS ORDERED: LORazepam 1 MG TABLET PO PRN (20:45)
[2018-10-29] MEDS ORDERED: ACETAMINOPHEN 325 MG TABLET. PO PRN (20:45)
[2018-10-29] MEDS ORDERED: FAMOTIDINE 20 MG/2 ML VIAL IVP ONE (20:45)
[2018-10-29] MEDS ORDERED: guaiFENesin ORAL 200 MG/10 ML LIQUID. PO PRN (20:45)
[2018-10-29] MEDS: ATORVASTATIN CALCIUM 10 MG TABLET. PO SCH (21:00)
[2018-10-29] MEDS: METOCLOPRAMIDE 10 MG TABLET. PO SCH (21:00)
[2018-10-29] MEDS: BENZONATATE 100 MG CAPSULE. PO SCH (21:00)
[2018-10-29] MEDS: MONTELUKAST SODIUM 10 MG TABLET. PO SCH (21:00)
[2018-10-29] MEDS: BUDESONIDE 0.5 MG/2 ML NEBU. NEB SCH (22:00)
[2018-10-29 22:25] VITALS: BP 117/68
[2018-10-30 03:25] VITALS: BP 138/88
[2018-10-30] MEDS: IPRATRPIUM/ALBUTEROL 0.5/2.5MG 3 ML NEBU. NEB SCH ×4 (06:04→20:09)
[2018-10-30] MEDS: BUDESONIDE 0.5 MG/2 ML NEBU. NEB SCH ×2 (06:05→20:10)
[2018-10-30 07:00] VITALS: BP 127/85
[2018-10-30] MEDS: metFORMIN 500 MG TABLET PO SCH (08:00)
[2018-10-30] MEDS: INSULIN LISPRO 300 UNITS/3 ML VIAL. SQ SCH ×3 (08:00→16:45)
[2018-10-30] MEDS: LIDOCAINE (700MG/PATCH) PATCH. TP SCH (09:00)
--- NOTE | 2018-10-30 09:04 | PDOC1 ---
History and Physical Date of Admission Date of Admission DATE: 10/30/18 TIME: 08:58 Identification/Chief Complaint Chief Complaint Shortness of breath Source Source: Chart review, Patient History of Present Illness History of Present Illness Mr Coleman is a 57 year old male w/ PMHx end stage severe COPD/Emphysema on chronic O2, CHF who presents to the ER with complaints of shortness of breath, productive cough with thick clear sputum, and increased need for O2 since last night. He states he was at his sister's house where there was no air conditioning. Patient states that all the hot air heat of the fans blowing made his COPD worse. Patient states he's been doing nebulizer and albuterol treatments and using his inhaler and he is even increased his prednisone from 10 mg a day to 30 mg a day and he is still having difficulties with breathing. Patient states he feels extremely tight in the chest. Patient states he up his oxygen at home. Patient states usually wears 3 L of oxygen. EKG shows sinus rhythm and no STEMI. Patient denies chest pain, nausea, vomiting, abdominal pain, diarrhea, dizziness, numbness or tingling, syncope, headache, fever, recent illness, dysuria. On prior visit [address] showed new T9 compression fracture - unable to tolerate laying flat for MRI or for kyphoplasty Recent PE dx at [facility] a few months ago, 2 clots, on anticoagulation now on xarelto F/u in [place] for eventual bullectomy and [facility] for his PE. He also c/o right eye irritation and pain on swallowing, particularly large pills, feels he has thrush again Past Medical History Cardiovascular: CHF, HTN, Hyperlipidemia, Other Pulmonary: Asthma, COPD, Pneumonia, Other CENTRAL NERVOUS SYSTEM: Other GI: GERD Heme/Onc: No pertinent hx Hepatobiliary: No pertinent hx Psych: Anxiety Musculoskeletal: low back pain, Osteoarthritis Rheumatologic: No pertinent hx Infectious disease: No pertinent hx Renal/: Chronic renal insuff Endocrine: Diabetes Past Surgical History Past Surgical History: Hernia Repair Family History Family History: Heart Disease, Hypertension Social History Smoke: No ALCOHOL: none Drugs: None Current Medications Current Medications Current Medications Albuterol Sulfate (Ventolin Neb Soln) 2.5 mg 1X ONCE NEB Last administered on 10/29/18at 17:01; Start 10/29/18 at 17:00; Stop 10/29/18 at 17:01; Status DC Methylprednisolone Sodium Succinate (SOLU-Medrol 125MG VIAL) 62.5 mg 1X ONCE IV Last administered on 10/29/18at 17:56; Start 10/29/18 at 17:00; Stop 10/29/18 at 17:01; Status DC Ondansetron HCl (Zofran) 4 mg PRN Q8HRS PRN IV NAUSEA/VOMITING; Start 10/29/18 at 20:00; Stop 10/30/18 at 19:59 Fentanyl Citrate (Fentanyl 2ml Vial) 50 mcg PRN Q1HR PRN IV PAIN; Start 10/29/18 at 20:00; Stop 10/30/18 at 19:59 Albuterol/ Ipratropium (Duoneb) 3 ml RTQID NEB Last administered on 10/30/18at 06:05; Start 10/29/18 at 20:00 Famotidine (Pepcid Vial) 20 mg 1X ONCE IVP Last administered on 10/29/18at 20:18; Start 10/29/18 at 20:45; Stop 10/29/18 at 20:46; Status DC Acetaminophen (Tylenol) 650 mg PRN Q4HRS PRN PO TEMP OVER 100.4F OR MILD PAIN; Start 10/29/18 at 20:45 Albuterol Sulfate (Ventolin Neb Soln) 2.5 mg PRN Q2HR PRN NEB SHORTNESS OF BREATH; Start 10/29/18 at 20:45 Aspirin (Ecotrin) 81 mg DAILYWBKFT PO ; Start 10/30/18 at 08:00 Atorvastatin Calcium (Lipitor) 10 mg HS PO ; Start 10/29/18 at 21:00 Benzonatate (Tessalon Perle) 100 mg TID PO ; Start 10/29/18 at 21:00 Guaifenesin (Robitussin) 200 mg PRN Q4HRS PRN PO COUGH; Start 10/29/18 at 20:45 Insulin Human Lispro (HumaLOG) TIDWMEALS SQ ; Start 10/30/18 at 08:00 Lidocaine (Lidoderm) 1 patch DAILY TP ; Start 10/30/18 at 09:00 Lorazepam (Ativan) 1 mg PRN BID PRN PO ANXIETY / AGITATION; Start 10/29/18 at 20:45 Metformin HCl (Glucophage) 500 mg DAILYWBKFT PO ; Start 10/30/18 at 08:00 Metoclopramide HCl (Reglan) 5 mg QID PO ; Start 10/29/18 at 21:00 Montelukast Sodium (Singulair) 10 mg QHS PO ; Start 10/29/18 at 21:00 Tramadol HCl (Ultram) 50 mg PRN Q6HRS PRN PO PAIN; Start 10/29/18 at 20:45 Budesonide (Pulmicort) 0.5 mg RTBID NEB Last administered on 10/30/18at 06:05; Start 10/29/18 at 22:00 Pantoprazole Sodium (Protonix) 40 mg DAILYAC PO ; Start 10/30/18 at 07:30 Rivaroxaban (Xarelto) 20 mg DAILY PO ; Start 10/30/18 at 09:00 Active Scripts Active Duoneb 0.5-3(2.5) Mg/3 Ml (Albuterol/Ipratropium) 3 Ml Ampul.neb 3 Ml NEB QID Tessalon Perle (Benzonatate) 100 Mg Capsule 1 Cap PO TID Montelukast Sodium Tablet (Montelukast Sodium) 10 Mg Tablet 10 Mg PO QHS Lidocaine PATCH (Lidocaine) 1 Each Adh..patch 1 Each TP DAILY 30 Days REMOVE AFTER 12 HOURS Ativan (Lorazepam) 1 Mg Tablet 1 Mg PO PRN BID PRN Humalog (Insulin Lispro) 100 Unit/1 Ml Insuln.pen 0 Units SQ TIDWMEALS 30 Days Aspirin Ec (Aspirin) 81 Mg Tablet.dr 81 Mg PO DAILYWBKFT 30 Days Cyclobenzaprine Hcl 5 Mg Tablet 5 Mg PO PRN TID PRN Tramadol Hcl 50 Mg Tablet 50 Mg PO PRN Q6HRS PRN 6 Days Guaifenesin 100 Mg/5 Ml Liquid 200 Mg PO PRN Q4HRS PRN 30 Days Tylenol (Acetaminophen) 325 Mg Tablet 650 Mg PO PRN Q4HRS PRN 10 Days Ventolin Hfa Inhaler (Albuterol Sulfate) 18 Gm Hfa.aer.ad 2 Puff INH Q4HRS Reglan (Metoclopramide Hcl) 10 Mg Tablet 0.5 Tab PO QID 30 Days Reported Xarelto (Rivaroxaban) 20 Mg Tablet 20 Mg PO DAILY Metformin Hcl 500 Mg Tablet 500 Mg PO DAILYWBKFT Pulmicort (Budesonide) 0.25 Mg/2 Ml Ampul.neb 1 Vial NEB BID Albuterol Sulfate Neb Soln (Albuterol Sulfate) 2.5 Mg/3 Ml Vial.neb 1 Vial NEB PRN Q2HR PRN Furosemide 40 Mg Tablet 1 Tab PO DAILY Vitamin D3 (Cholecalciferol (Vitamin D3)) 5,000 Unit Tablet 5,000 Unit PO DAILY Potassium Chloride 20 Meq Tablet.er 20 Meq PO DAILY Protonix (Pantoprazole Sodium) 20 Mg Tablet.dr 1 Tab PO DAILY Atorvastatin Calcium 10 Mg Tablet 10 Mg PO HS Symbicort 160-4.5 Mcg Inhaler (Budesonide/Formoterol Fumarate) 10.2 Gm Hfa.aer.ad 2 Puff IH BID Allergies Allergies: Coded Allergies: No Known Medication Allergies (Verified Allergy, Unknown, 08/26/18) ROS General: YES: Fatigue, Malaise; No: Chills, Night Sweats, Appetite, Other PSYCHOLOGICAL ROS: YES: Anxiety; No: Behavioral Disorder, Concentration difficultie, Decreased libido, Depression, Disorientation, Hallucinations, Hostility, Irritablity, Memory difficulties, Mood Swings, Obsessive thoughts, Physical abuse, Sexual abuse, Sleep disturbances, Suicidal ideation, Other Eyes: No Blurry vision, No Decreased vision, No Double vision, No Dry eyes, No Excessive tearing, No Eye Pain, No Itchy Eyes, No Loss of vision, No Photophobia, No Scotomata, No Uses contacts, No Uses glasses, No Other HEENT: No: Heacaches, Visual Changes, Hearing change, Nasal congestion, Nasal discharge, Oral lesions, Sinus pain, Sore Throat, Epistaxis, Sneezing, Snoring, Tinnitus, Vertigo, Vocal changes, Other ALLERGY AND IMMUNOLOGY: No: Hives, Insect Bite Sensitivity, Itchy/Watery Eyes, Nasal Congestion, Post Nasal Drip, Seasonal Allergies, Other Hematological and Lymphatic: No: Bleeding Problems, Blood Clots, Blood Transfusions, Brusing, Night Sweats, Pallor, Swollen Lymph Nodes, Other ENDOCRINE: No: Breast Changes, Galactorrhea, Hair Pattern Changes, Hot Flashes, Malaise/lethargy, Mood Swings, Palpitations, Polydipsia/polyuria, Skin Changes, Temperature Intolerance, Unexpected Weight Changes, Other Breast: No New/Changing Breast Lumps, No Nipple changes, No Nipple discharge, No Other Respiratory: YES: Cough, Shortness of breath, SOB with excertion, Tachypnea, Wheezing; No: Hemoptysis, Orthopnea, Pleuritic Pain, Sputum Changes, Stridor, Other Cardiovascular: No Chest Pain, No Palpitations, No Orthopnea, No Paroxysmal Noc. Dyspnea, No Edema, No Lt Headedness, No Other Gastrointestinal: No Nausea, No Vomiting, No Abdominal Pain, No Diarrhea, No Constipation, No Melena, No Hematochezia, No Other Genitourinary: No Dysuria, No Frequency, No Incontinence, No Hematuria, No Retention, No Discharge, No Urgency, No Pain, No Flank Pain, No Other, No , No , No , No , No , No , No Musculoskeletal: No Gait Disturbance, No Joint Pain, No Joint Stiffness, No Joint Swelling, No Muscle Pain, No Muscular Weakness, No Pain In:, No Swelling In:, No Other Neurological: No Behavorial Changes, No Bowel/Bladder ControlChng, No Confusion, No Dizziness, No Gait Disturbance, No Headaches, No Impaired Coord/balance, No Memory Loss, No Numbness/Tingling, No Seizures, No Speech Problems, No Tremors, No Visual Changes, No Weakness, No Other Skin: No Dry Skin, No Eczema, No Hair Changes, No Lumps, No Mole Changes, No Mottling, No Nail Changes, No Pruritus, No Rash, No Skin Lesion Changes, No Other, No Acne Physical Exam General: Alert, Oriented X3, Cooperative, No acute distress HEENT: Atraumatic, PERRLA, EOMI, Mucous membr. moist/pink, Other (Right conjunctival injection and purulent discharge. Red oropharynx) Lungs: Other (Prolonged expiratory phase, scattered wheezes) Heart: S1S2, RRR, no gallops, no murmurs Abdomen: Normal bowel sounds, Soft, No tenderness, No hepatosplenomegaly, No masses Rectal Exam: not examined Extremities: No clubbing, No cyanosis, No edema, Normal pulses, No tenderness/swelling Skin: No rashes, No breakdown, No significant lesion Neuro: Normal gait, Normal speech, Strength at 5/5 X4 ext, Normal tone, Sensation intact, Cranial nerves 3-12 NL, Reflexes 2+ Psych/Mental Status: Mental status NL, Mood NL Vitals Vitals Vital Signs Date Time Temp Pulse Resp B/P (MAP) Pulse Ox O2 Delivery O2 Flow Rate FiO2 10/30/18 07:00 98.5 68 18 127/85 (99) 98 Nasal Cannula 3.0 98.5 Labs Labs Laboratory Tests Test 10/29/18 17:09 10/30/18 07:27 White Blood Count 6.3 x10^3/uL (4.0-11.0) Red Blood Count 3.85 x10^6/uL (4.30-5.70) Hemoglobin 8.6 g/dL (13.0-17.5) Hematocrit 28.0 % (39.0-53.0) Mean Corpuscular Volume 73 fL (79-100) Mean Corpuscular Hemoglobin 22 pg (25-35) Mean Corpuscular Hemoglobin Concent 31 g/dL (31-37) Red Cell Distribution Width 20.4 % (11.5-14.5) Platelet Count 327 x10^3/uL (140-400) Neutrophils (%) (Auto) 83 % (31-73) Lymphocytes (%) (Auto) 7 % (24-48) Monocytes (%) (Auto) 8 % (0-9) Eosinophils (%) (Auto) 0 % (0-3) Basophils (%) (Auto) 2 % (0-3) Neutrophils # (Auto) 5.2 x10^3/uL (1.8-7.7) Lymphocytes # (Auto) 0.5 x10^3/uL (1.0-4.8) Monocytes # (Auto) 0.5 x10^3/uL (0.0-1.1) Eosinophils # (Auto) 0.0 x10^3/uL (0.0-0.7) Basophils # (Auto) 0.1 x10^3/uL (0.0-0.2) Platelet Estimate Adequate (ADEQUATE) Hypochromasia Slight Anisocytosis Mod Microcytosis Slight Prothrombin Time 21.0 SEC (11.7-14.0) Prothromb Time International Ratio 1.8 (0.8-1.1) Sodium Level 141 mmol/L (136-145) Potassium Level 4.0 mmol/L (3.5-5.1) Chloride Level 101 mmol/L (98-107) Carbon Dioxide Level 34 mmol/L (21-32) Anion Gap 6 (6-14) Blood Urea Nitrogen 12 mg/dL (8-26) Creatinine 1.1 mg/dL (0.7-1.3) Estimated GFR (Cockcroft-Gault) 82.9 BUN/Creatinine Ratio 11 (6-20) Glucose Level 101 mg/dL (70-99) Calcium Level 9.5 mg/dL (8.5-10.1) Total Bilirubin 0.7 mg/dL (0.2-1.0) Aspartate Amino Transf (AST/SGOT) 23 U/L (15-37) Alanine Aminotransferase (ALT/SGPT) 29 U/L (16-63) Alkaline Phosphatase 113 U/L (46-116) Troponin I Quantitative < 0.017 ng/mL (0.000-0.055) BJ-Kgv-E-Type Natriuretic Peptide 101 pg/mL (0-124) Total Protein 7.4 g/dL (6.4-8.2) Albumin 4.1 g/dL (3.4-5.0) Albumin/Globulin Ratio 1.2 (1.0-1.7) Glucose (Fingerstick) 122 mg/dL (70-99) Laboratory Tests Test 10/29/18 17:09 10/30/18 07:27 White Blood Count 6.3 x10^3/uL (4.0-11.0) Red Blood Count 3.85 x10^6/uL (4.30-5.70) Hemoglobin 8.6 g/dL (13.0-17.5) Hematocrit 28.0 % (39.0-53.0) Mean Corpuscular Volume 73 fL (79-100) Mean Corpuscular Hemoglobin 22 pg (25-35) Mean Corpuscular Hemoglobin Concent 31 g/dL (31-37) Red Cell Distribution Width 20.4 % (11.5-14.5) Platelet Count 327 x10^3/uL (140-400) Neutrophils (%) (Auto) 83 % (31-73) Lymphocytes (%) (Auto) 7 % (24-48) Monocytes (%) (Auto) 8 % (0-9) Eosinophils (%) (Auto) 0 % (0-3) Basophils (%) (Auto) 2 % (0-3) Neutrophils # (Auto) 5.2 x10^3/uL (1.8-7.7) Lymphocytes # (Auto) 0.5 x10^3/uL (1.0-4.8) Monocytes # (Auto) 0.5 x10^3/uL (0.0-1.1) Eosinophils # (Auto) 0.0 x10^3/uL (0.0-0.7) Basophils # (Auto) 0.1 x10^3/uL (0.0-0.2) Platelet Estimate Adequate (ADEQUATE) Hypochromasia Slight Anisocytosis Mod Microcytosis Slight Prothrombin Time 21.0 SEC (11.7-14.0) Prothromb Time International Ratio 1.8 (0.8-1.1) Sodium Level 141 mmol/L (136-145) Potassium Level 4.0 mmol/L (3.5-5.1) Chloride Level 101 mmol/L (98-107) Carbon Dioxide Level 34 mmol/L (21-32) Anion Gap 6 (6-14) Blood Urea Nitrogen 12 mg/dL (8-26) Creatinine 1.1 mg/dL (0.7-1.3) Estimated GFR (Cockcroft-Gault) 82.9 BUN/Creatinine Ratio 11 (6-20) Glucose Level 101 mg/dL (70-99) Calcium Level 9.5 mg/dL (8.5-10.1) Total Bilirubin 0.7 mg/dL (0.2-1.0) Aspartate Amino Transf (AST/SGOT) 23 U/L (15-37) Alanine Aminotransferase (ALT/SGPT) 29 U/L (16-63) Alkaline Phosphatase 113 U/L (46-116) Troponin I Quantitative < 0.017 ng/mL (0.000-0.055) TH-Wkj-T-Type Natriuretic Peptide 101 pg/mL (0-124) Total Protein 7.4 g/dL (6.4-8.2) Albumin 4.1 g/dL (3.4-5.0) Albumin/Globulin Ratio 1.2 (1.0-1.7) Glucose (Fingerstick) 122 mg/dL (70-99) Images Images CXR - Notable improvement in bibasilar pulmonary aeration with decreased interstitial thickening and decreased pleural effusions. COPD. VTE Prophylaxis Ordered VTE Prophylaxis Devices: Yes VTE Pharmacological Prophylaxi: Yes Assessment/Plan Assessment/Plan A/P: End Stage COPD with acute exacerbation - Home O2 use Acute hypoxic respiratory failure - seems already a bit improved. 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 Needs to discharge to location with AC given the temperatures this week. KIRSTIE TREVINO MD Oct 30, 2018 09:04
[2018-10-30] MEDS: traMADol 50 MG TABLET PO PRN ×2 (09:06→16:57)
[2018-10-30] MEDS: RIVAROXABAN 10 MG TABLET. PO SCH (09:06)
[2018-10-30] MEDS: BENZONATATE 100 MG CAPSULE. PO SCH ×3 (09:06→21:12)
[2018-10-30] MEDS: PANTOPRAZOLE 40 MG TABLET.DR. PO SCH (09:06)
[2018-10-30] MEDS: ASPIRIN ENTERIC COATED 81 MG TABLET.DR. PO SCH (09:06)
[2018-10-30] MEDS: METOCLOPRAMIDE 10 MG TABLET. PO SCH ×4 (09:06→21:12)
--- NOTE | 2018-10-30 10:56 | CONS ---
DATE OF CONSULTATION: PULMONARY CONSULTATION ATTENDING PHYSICIAN: Dr. Sabino Cheney. REASON FOR CONSULTATION: Dyspnea. HISTORY OF PRESENT ILLNESS: The patient is very well known to us. He is a 58-year-old male who has end-stage COPD with chronic hypoxic respiratory failure. He has frequent hospitalizations recently, mostly due to social issues. He was brought into the hospital after being recently discharged few days ago. He states he went to his sister's house. There was no air conditioning. There was all hot air blowing from the fans and made him dyspneic, and he did not feel any better after doing nebulizer treatments. He denies any increased cough. No fever, no chills, no chest pain, no headaches, no nausea, vomiting, no diarrhea, no dysuria. Chest x-ray was reviewed, no significant changes. Bullous changes on the left side and the mildly prominent interstitial markings on the right, a bit better. PAST MEDICAL HISTORY: History of end-stage COPD with chronic respiratory failure, details of other past medical history in my previous consult. PAST SURGICAL HISTORY: Hernia repair. FAMILY HISTORY: Heart disease and hypertension. SOCIAL HISTORY: No longer smokes cigarettes. ALLERGIES: None. CURRENT MEDICATIONS: Reviewed as listed in the MRAD. REVIEW OF SYSTEMS: Twelve-point system obtained. Pertinent positives discussed in my history of present illness, otherwise noncontributory. All systems that were negative were reviewed as well. PHYSICAL EXAMINATION: VITAL SIGNS: Reviewed, pulse ox 98% on 3 liters. NECK: Supple. LUNGS: Diminished breath sounds bilaterally. CARDIOVASCULAR: Regular rate. ABDOMEN: Soft, nontender. EXTREMITIES: With no pitting edema. LABORATORY DATA: Reviewed. White cell count 6.3, hemoglobin 8.6, platelets are 327. BUN and creatinine normal. IMPRESSION: 1. Chronic respiratory failure with mild exacerbation secondary to hot air coming from the fan. He states that air conditioner stopped working at his sister's house. 2. No new infiltrates or changes seen on the chest x-ray. 3. Chronic hypoxic respiratory failure with end-stage chronic obstructive pulmonary disease and extensive bullous lung disease on the left. Clinically, stable. 4. Recent constipation, which appears to have improved. 5. Previous history of PE at [facility], which on followup CT here had resolved. He is on Xarelto. RECOMMENDATIONS: 1. Continue with present oxygen. 2. Continue present bronchodilators. 3. Continue Xarelto. 4. Supportive treatment. 5. This admission is related to social issues. I will have child support case officer and work to help with his home conditions. From a pulmonary standpoint, he is stable to be discharged. VIN MEAD MD DR: ALTAGRACIA/efrain JOB#: [id number] / [id number]
[2018-10-30 11:00] VITALS: BP 126/79
[2018-10-30] MEDS: NYSTATIN 100,000 UNITS/ML 5 ML ORAL.SUSP. SWSW SCH ×3 (12:12→21:12)
[2018-10-30] MEDS: ERYTHROMYCIN 0.5% OPHTH OINTMENT 1GM TUBE. OD SCH ×3 (12:13→21:12)
[2018-10-30] MEDS: LACTULOSE 20 GM/30 ML SOLUTION. PO PRN (13:59)
[2018-10-30 15:14] VITALS: BP 110/73
[2018-10-30 19:10] VITALS: BP 112/64
[2018-10-30] MEDS: ALBUTEROL SULFATE 2.5 MG/3 ML NEBU. NEB PRN (20:09)
[2018-10-30] MEDS: ATORVASTATIN CALCIUM 10 MG TABLET. PO SCH (21:12)
[2018-10-30] MEDS: MONTELUKAST SODIUM 10 MG TABLET. PO SCH (21:12)
[2018-10-30 23:45] VITALS: BP 117/72
[2018-10-31] MEDS: ALBUTEROL SULFATE 2.5 MG/3 ML NEBU. NEB PRN (00:22)
[2018-10-31] MEDS ORDERED: methylPREDNISolone SOD SUCC PF 125 MG/2 ML VIAL. IV ONE (02:45)
[2018-10-31 03:32] VITALS: BP 135/92
[2018-10-31 07:15] VITALS: BP 118/81
--- NOTE | 2018-10-31 07:26 | PDOC ---
PULMONARY PROGRESS NOTES Subjective resting in bed on N/C reports intermittent Shortness of breath and cough throughout the night. Vitals Vital Signs Date Time Temp Pulse Resp B/P (MAP) Pulse Ox O2 Delivery O2 Flow Rate FiO2 10/31/18 03:32 98.0 90 18 135/92 (106) 100 Nasal Cannula 3.0 98.0 ROS: No Nausea, No Chest Pain, No Increase Cough General: Alert, Oriented X4, No acute distress Lungs: Wheezing (ex.), Other (diminshed ) Cardiovascular: S1, S2 Abdomen: Soft, Non-tender Neuro Exam: Alert, Oriented, Normal Speech Extremities: No Edema Labs Laboratory Tests Test 10/29/18 17:09 10/30/18 07:27 10/30/18 11:10 10/30/18 16:41 White Blood Count 6.3 x10^3/uL (4.0-11.0) Red Blood Count 3.85 x10^6/uL (4.30-5.70) Hemoglobin 8.6 g/dL (13.0-17.5) Hematocrit 28.0 % (39.0-53.0) Mean Corpuscular Volume 73 fL (79-100) Mean Corpuscular Hemoglobin 22 pg (25-35) Mean Corpuscular Hemoglobin Concent 31 g/dL (31-37) Red Cell Distribution Width 20.4 % (11.5-14.5) Platelet Count 327 x10^3/uL (140-400) Neutrophils (%) (Auto) 83 % (31-73) Lymphocytes (%) (Auto) 7 % (24-48) Monocytes (%) (Auto) 8 % (0-9) Eosinophils (%) (Auto) 0 % (0-3) Basophils (%) (Auto) 2 % (0-3) Neutrophils # (Auto) 5.2 x10^3/uL (1.8-7.7) Lymphocytes # (Auto) 0.5 x10^3/uL (1.0-4.8) Monocytes # (Auto) 0.5 x10^3/uL (0.0-1.1) Eosinophils # (Auto) 0.0 x10^3/uL (0.0-0.7) Basophils # (Auto) 0.1 x10^3/uL (0.0-0.2) Platelet Estimate Adequate (ADEQUATE) Hypochromasia Slight Anisocytosis Mod Microcytosis Slight Prothrombin Time 21.0 SEC (11.7-14.0) Prothromb Time International Ratio 1.8 (0.8-1.1) Sodium Level 141 mmol/L (136-145) Potassium Level 4.0 mmol/L (3.5-5.1) Chloride Level 101 mmol/L (98-107) Carbon Dioxide Level 34 mmol/L (21-32) Anion Gap 6 (6-14) Blood Urea Nitrogen 12 mg/dL (8-26) Creatinine 1.1 mg/dL (0.7-1.3) Estimated GFR (Cockcroft-Gault) 82.9 BUN/Creatinine Ratio 11 (6-20) Glucose Level 101 mg/dL (70-99) Calcium Level 9.5 mg/dL (8.5-10.1) Total Bilirubin 0.7 mg/dL (0.2-1.0) Aspartate Amino Transf (AST/SGOT) 23 U/L (15-37) Alanine Aminotransferase (ALT/SGPT) 29 U/L (16-63) Alkaline Phosphatase 113 U/L (46-116) Troponin I Quantitative < 0.017 ng/mL (0.000-0.055) EW-Uth-U-Type Natriuretic Peptide 101 pg/mL (0-124) Total Protein 7.4 g/dL (6.4-8.2) Albumin 4.1 g/dL (3.4-5.0) Albumin/Globulin Ratio 1.2 (1.0-1.7) Glucose (Fingerstick) 122 mg/dL (70-99) 112 mg/dL (70-99) 125 mg/dL (70-99) Test 10/30/18 20:42 Glucose (Fingerstick) 117 mg/dL (70-99) Laboratory Tests Test 10/30/18 07:27 10/30/18 11:10 10/30/18 16:41 10/30/18 20:42 Glucose (Fingerstick) 122 mg/dL (70-99) 112 mg/dL (70-99) 125 mg/dL (70-99) 117 mg/dL (70-99) Medications Active Scripts Medications Dose Route/Sig Max Daily Dose Days Date Category Dose Instructions Duoneb 0.5-3(2.5) Mg/3 Ml (Albuterol/Ipratropium) 3 Ml Ampul.neb 3 Ml NEB QID 10/28/18 Rx Tessalon Perle (Benzonatate) 100 Mg Capsule 1 Cap PO TID 10/28/18 Rx Montelukast Sodium Tablet (Montelukast Sodium) 10 Mg Tablet 10 Mg PO QHS 10/28/18 Rx Lidocaine PATCH (Lidocaine) 1 Each Adh..patch 1 Each TP DAILY 30 09/11/18 Rx REMOVE AFTER 12 HOURS Ativan (Lorazepam) 1 Mg Tablet 1 Mg PO PRN BID PRN 09/11/18 Rx Xarelto (Rivaroxaban) 20 Mg Tablet 20 Mg PO DAILY 09/09/18 Reported Metformin Hcl 500 Mg Tablet 500 Mg PO DAILYWBKFT 09/09/18 Reported Humalog (Insulin Lispro) 100 Unit/1 Ml Insuln.pen 0 Units SQ TIDWMEALS 30 08/28/18 Rx Aspirin Ec (Aspirin) 81 Mg Tablet.dr 81 Mg PO DAILYWBKFT 30 08/28/18 Rx Pulmicort (Budesonide) 0.25 Mg/2 Ml Ampul.neb 1 Vial NEB BID 08/25/18 Reported Albuterol Sulfate Neb Soln (Albuterol Sulfate) 2.5 Mg/3 Ml Vial.neb 1 Vial NEB PRN Q2HR PRN 08/25/18 Reported Cyclobenzaprine Hcl 5 Mg Tablet 5 Mg PO PRN TID PRN 08/20/18 Rx Tramadol Hcl 50 Mg Tablet 50 Mg PO PRN Q6HRS PRN 6 07/12/18 Rx Furosemide 40 Mg Tablet 1 Tab PO DAILY 06/20/18 Reported Guaifenesin 100 Mg/5 Ml Liquid 200 Mg PO PRN Q4HRS PRN 30 05/30/18 Rx Tylenol (Acetaminophen) 325 Mg Tablet 650 Mg PO PRN Q4HRS PRN 10 05/30/18 Rx Ventolin Hfa Inhaler (Albuterol Sulfate) 18 Gm Hfa.aer.ad 2 Puff INH Q4HRS 05/10/18 Rx Vitamin D3 (Cholecalciferol (Vitamin D3)) 5,000 Unit Tablet 5,000 Unit PO DAILY 03/15/18 Reported Reglan (Metoclopramide Hcl) 10 Mg Tablet 0.5 Tab PO QID 30 02/14/18 Rx Potassium Chloride 20 Meq Tablet.er 20 Meq PO DAILY 01/13/18 Reported Protonix (Pantoprazole Sodium) 20 Mg Tablet.dr 1 Tab PO DAILY 11/18/17 Reported Atorvastatin Calcium 10 Mg Tablet 10 Mg PO HS 08/21/17 Reported Symbicort 160-4.5 Mcg Inhaler (Budesonide/Formoterol Fumarate) 10.2 Gm Hfa.aer.ad 2 Puff IH BID 09/21/15 Reported Impression . 1. Chronic respiratory failure with mild exacerbation secondary to hot air coming from the fan. He states that air conditioner stopped working at his sister's house. 2. CXR unchanged from recent admit 3. Chronic hypoxic respiratory failure with end-stage chronic obstructive pulmonary disease and extensive bullous lung disease on the left. Clinically,stable. 4. Recent constipation, which appears to have improved. 5. history of PE at [facility], which on followup CT here had resolved. He is on Xarelto. Plan . 1. Continue with present oxygen. 2. Continue present bronchodilators. 3. Continue Xarelto. 4. Supportive treatment. 5. administrative services manager to assist with D/C planning 6. stable from our standpoint to D/C 7. Discussed with VIN AMAYA MD Oct 31, 2018 07:26
[2018-10-31] MEDS: IPRATRPIUM/ALBUTEROL 0.5/2.5MG 3 ML NEBU. NEB SCH ×4 (07:30→20:30)
[2018-10-31] MEDS: BUDESONIDE 0.5 MG/2 ML NEBU. NEB SCH ×2 (07:30→20:30)
[2018-10-31] MEDS: INSULIN LISPRO 300 UNITS/3 ML VIAL. SQ SCH ×3 (08:00→17:00)
[2018-10-31] MEDS: ASPIRIN ENTERIC COATED 81 MG TABLET.DR. PO SCH (08:31)
[2018-10-31] MEDS: BENZONATATE 100 MG CAPSULE. PO SCH ×3 (08:31→20:51)
[2018-10-31] MEDS: PANTOPRAZOLE 40 MG TABLET.DR. PO SCH (08:31)
[2018-10-31] MEDS: METOCLOPRAMIDE 10 MG TABLET. PO SCH ×4 (08:31→20:52)
[2018-10-31] MEDS: RIVAROXABAN 10 MG TABLET. PO SCH (08:31)
[2018-10-31] MEDS: LIDOCAINE (700MG/PATCH) PATCH. TP SCH (08:31)
[2018-10-31] MEDS: metFORMIN 500 MG TABLET PO SCH (08:32)
[2018-10-31] MEDS: ERYTHROMYCIN 0.5% OPHTH OINTMENT 1GM TUBE. OD SCH ×4 (08:32→20:54)
--- NOTE | 2018-10-31 09:18 | PDOC ---
PROGRESS NOTES Chief Complaint Chief Complaint A/P: End Stage COPD with acute exacerbation - Home O2 use. Steroids IV, nebs. Needs air conditioning Acute hypoxic respiratory failure - seems already a bit improved. 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 Needs to discharge to location with given the temperatures this week. 28 minutes spent on chart review, imaging, coordination of care. Will d/w if he wishes for skilled vs home with voucher for his sister to install air conditioning units History of Present Illness History of Present Illness Mr Coleman is a 57 year old male w/ PMHx end stage severe COPD/Emphysema on chronic O2, CHF who presents to the ER with complaints of shortness of breath, productive cough with thick clear sputum, and increased need for O2 since last night. He states he was at his sister's house where there was no air conditioning. Patient states that all the hot air heat of the fans blowing made his COPD worse. Patient states he's been doing nebulizer and albuterol treatments and using his inhaler and he is even increased his prednisone from 10 mg a day to 30 mg a day and he is still having difficulties with breathing. Patient states he feels extremely tight in the chest. Patient states he up his oxygen at home. Patient states usually wears 3 L of oxygen. EKG shows sinus rhythm and no STEMI. Patient denies chest pain, nausea, vomiting, abdominal pain, diarrhea, dizziness, numbness or tingling, syncope, headache, fever, recent illness, dysuria. On prior visit [address] showed new T9 compression fracture - unable to tolerate laying flat for MRI or for kyphoplasty Recent PE dx at [place] a few months ago, 2 clots, on anticoagulation now on xarelto F/u in [place] for eventual bullectomy and [facility] for his PE. He also c/o right eye irritation and pain on swallowing, particularly large pills, feels he has thrush again Overnight had IV steroids. His breathing is stable today. He states he just isn't having a good day today. He is reconsidering skilled placement today. Vitals Vitals Vital Signs Date Time Temp Pulse Resp B/P (MAP) Pulse Ox O2 Delivery O2 Flow Rate FiO2 10/31/18 07:28 100 Nasal Cannula 3.0 10/31/18 07:15 97.1 97 18 118/81 (93) 97.1 Physical Exam General: Alert, Oriented X3, Cooperative, No acute distress Lungs: Wheezing (ex.), Other (diminshed ) Abdomen: Normal bowel sounds, Soft, No tenderness, No hepatosplenomegaly, No masses Extremities: No clubbing, No cyanosis, No edema, Normal pulses, No tenderness/ swelling Skin: No rashes, No breakdown, No significant lesion Labs LABS Laboratory Tests Test 10/30/18 11:10 10/30/18 16:41 10/30/18 20:42 10/31/18 07:32 Glucose (Fingerstick) 112 mg/dL (70-99) 125 mg/dL (70-99) 117 mg/dL (70-99) 123 mg/dL (70-99) Assessment and Plan Assessmemt and Plan Problems Medical Problems: (1) Chronic respiratory failure Status: Chronic Comment Review of Relevant I have reviewed the following items franki (where applicable) has been applied. Labs Laboratory Tests Test 10/29/18 17:09 10/30/18 07:27 10/30/18 11:10 10/30/18 16:41 White Blood Count 6.3 x10^3/uL (4.0-11.0) Red Blood Count 3.85 x10^6/uL (4.30-5.70) Hemoglobin 8.6 g/dL (13.0-17.5) Hematocrit 28.0 % (39.0-53.0) Mean Corpuscular Volume 73 fL (79-100) Mean Corpuscular Hemoglobin 22 pg (25-35) Mean Corpuscular Hemoglobin Concent 31 g/dL (31-37) Red Cell Distribution Width 20.4 % (11.5-14.5) Platelet Count 327 x10^3/uL (140-400) Neutrophils (%) (Auto) 83 % (31-73) Lymphocytes (%) (Auto) 7 % (24-48) Monocytes (%) (Auto) 8 % (0-9) Eosinophils (%) (Auto) 0 % (0-3) Basophils (%) (Auto) 2 % (0-3) Neutrophils # (Auto) 5.2 x10^3/uL (1.8-7.7) Lymphocytes # (Auto) 0.5 x10^3/uL (1.0-4.8) Monocytes # (Auto) 0.5 x10^3/uL (0.0-1.1) Eosinophils # (Auto) 0.0 x10^3/uL (0.0-0.7) Basophils # (Auto) 0.1 x10^3/uL (0.0-0.2) Platelet Estimate Adequate (ADEQUATE) Hypochromasia Slight Anisocytosis Mod Microcytosis Slight Prothrombin Time 21.0 SEC (11.7-14.0) Prothromb Time International Ratio 1.8 (0.8-1.1) Sodium Level 141 mmol/L (136-145) Potassium Level 4.0 mmol/L (3.5-5.1) Chloride Level 101 mmol/L (98-107) Carbon Dioxide Level 34 mmol/L (21-32) Anion Gap 6 (6-14) Blood Urea Nitrogen 12 mg/dL (8-26) Creatinine 1.1 mg/dL (0.7-1.3) Estimated GFR (Cockcroft-Gault) 82.9 BUN/Creatinine Ratio 11 (6-20) Glucose Level 101 mg/dL (70-99) Calcium Level 9.5 mg/dL (8.5-10.1) Total Bilirubin 0.7 mg/dL (0.2-1.0) Aspartate Amino Transf (AST/SGOT) 23 U/L (15-37) Alanine Aminotransferase (ALT/SGPT) 29 U/L (16-63) Alkaline Phosphatase 113 U/L (46-116) Troponin I Quantitative < 0.017 ng/mL (0.000-0.055) ES-Rdp-V-Type Natriuretic Peptide 101 pg/mL (0-124) Total Protein 7.4 g/dL (6.4-8.2) Albumin 4.1 g/dL (3.4-5.0) Albumin/Globulin Ratio 1.2 (1.0-1.7) Glucose (Fingerstick) 122 mg/dL (70-99) 112 mg/dL (70-99) 125 mg/dL (70-99) Test 10/30/18 20:42 10/31/18 07:32 Glucose (Fingerstick) 117 mg/dL (70-99) 123 mg/dL (70-99) Laboratory Tests Test 10/30/18 11:10 10/30/18 16:41 10/30/18 20:42 10/31/18 07:32 Glucose (Fingerstick) 112 mg/dL (70-99) 125 mg/dL (70-99) 117 mg/dL (70-99) 123 mg/dL (70-99) Medications Current Medications Albuterol Sulfate (Ventolin Neb Soln) 2.5 mg 1X ONCE NEB Last administered on 10/29/18at 17:01; Start 10/29/18 at 17:00; Stop 10/29/18 at 17:01; Status DC Methylprednisolone Sodium Succinate (SOLU-Medrol 125MG VIAL) 62.5 mg 1X ONCE IV Last administered on 10/29/18at 17:56; Start 10/29/18 at 17:00; Stop 10/29/18 at 17:01; Status DC Ondansetron HCl (Zofran) 4 mg PRN Q8HRS PRN IV NAUSEA/VOMITING; Start 10/29/18 at 20:00; Stop 10/30/18 at 19:59; Status DC Fentanyl Citrate (Fentanyl 2ml Vial) 50 mcg PRN Q1HR PRN IV PAIN; Start 10/29/18 at 20:00; Stop 10/30/18 at 19:59; Status DC Albuterol/ Ipratropium (Duoneb) 3 ml RTQID NEB Last administered on 10/31/18at 07:30; Start 10/29/18 at 20:00 Famotidine (Pepcid Vial) 20 mg 1X ONCE IVP Last administered on 10/29/18at 20:18; Start 10/29/18 at 20:45; Stop 10/29/18 at 20:46; Status DC Acetaminophen (Tylenol) 650 mg PRN Q4HRS PRN PO TEMP OVER 100.4F OR MILD PAIN; Start 10/29/18 at 20:45 Albuterol Sulfate (Ventolin Neb Soln) 2.5 mg PRN Q2HR PRN NEB SHORTNESS OF BREATH Last administered on 10/31/18 00:22; Start 10/29/18 at 20:45 Aspirin (Ecotrin) 81 mg DAILYWBKFT PO Last administered on 10/31/18 08:36; Start 10/30/18 at 08:00 Atorvastatin Calcium (Lipitor) 10 mg HS PO Last administered on 10/30/18 21:13; Start 10/29/18 at 21:00 Benzonatate (Tessalon Perle) 100 mg TID PO Last administered on 10/31/18 08:36; Start 10/29/18 at 21:00 Guaifenesin (Robitussin) 200 mg PRN Q4HRS PRN PO COUGH; Start 10/29/18 at 20:45 Insulin Human Lispro (HumaLOG) TIDWMEALS SQ ; Start 10/30/18 at 08:00 Lidocaine (Lidoderm) 1 patch DAILY TP Last administered on 10/31/18 08:36; Start 10/30/18 at 09:00 Lorazepam (Ativan) 1 mg PRN BID PRN PO ANXIETY / AGITATION Last administered on 10/31/18 00:33; Start 10/29/18 at 20:45 Metformin HCl (Glucophage) 500 mg DAILYWBKFT PO Last administered on 10/31/18 08:36; Start 10/30/18 at 08:00 Metoclopramide HCl (Reglan) 5 mg QID PO Last administered on 10/31/18 08:36; Start 10/29/18 at 21:00 Montelukast Sodium (Singulair) 10 mg QHS PO Last administered on 10/30/18 21:13; Start 10/29/18 at 21:00 Tramadol HCl (Ultram) 50 mg PRN Q6HRS PRN PO PAIN Last administered on 10/30/18 16:57; Start 10/29/18 at 20:45 Budesonide (Pulmicort) 0.5 mg RTBID NEB Last administered on 10/31/18 07:30; Start 10/29/18 at 22:00 Pantoprazole Sodium (Protonix) 40 mg DAILYAC PO Last administered on 10/31/18 08:36; Start 10/30/18 at 07:30 Rivaroxaban (Xarelto) 20 mg DAILY PO Last administered on 10/31/18 08:36; Start 10/30/18 at 09:00 Erythromycin (Romycin) 0.25 inch QID OD Last administered on 10/31/18 08:36; Start 10/30/18 at 11:00 Nystatin (Nystatin Oral Susp) 5 ml [id number] Last administered on 10/30/18 21:13; Start 10/30/18 at 11:00 Lactulose (Lactulose) 20 gm PRN DAILY PRN PO CONSTIPATION Last administered on 10/30/18 14:00; Start 10/30/18 at 13:45 Methylprednisolone Sodium Succinate (SOLU-Medrol 125MG VIAL) 62.5 mg 1X ONCE IV Last administered on 10/31/18 02:53; Start 10/31/18 at 02:45; Stop 10/31/18 at 02:46; Status DC Active Scripts Active Duoneb 0.5-3(2.5) Mg/3 Ml (Albuterol/Ipratropium) 3 Ml Ampul.neb 3 Ml NEB QID Tessalon Perle (Benzonatate) 100 Mg Capsule 1 Cap PO TID Montelukast Sodium Tablet (Montelukast Sodium) 10 Mg Tablet 10 Mg PO QHS Lidocaine PATCH (Lidocaine) 1 Each Adh..patch 1 Each TP DAILY 30 Days REMOVE AFTER 12 HOURS Ativan (Lorazepam) 1 Mg Tablet 1 Mg PO PRN BID PRN Humalog (Insulin Lispro) 100 Unit/1 Ml Insuln.pen 0 Units SQ TIDWMEALS 30 Days Aspirin Ec (Aspirin) 81 Mg Tablet.dr 81 Mg PO DAILYWBKFT 30 Days Cyclobenzaprine Hcl 5 Mg Tablet 5 Mg PO PRN TID PRN Tramadol Hcl 50 Mg Tablet 50 Mg PO PRN Q6HRS PRN 6 Days Guaifenesin 100 Mg/5 Ml Liquid 200 Mg PO PRN Q4HRS PRN 30 Days Tylenol (Acetaminophen) 325 Mg Tablet 650 Mg PO PRN Q4HRS PRN 10 Days Ventolin Hfa Inhaler (Albuterol Sulfate) 18 Gm Hfa.aer.ad 2 Puff INH Q4HRS Reglan (Metoclopramide Hcl) 10 Mg Tablet 0.5 Tab PO QID 30 Days Reported Xarelto (Rivaroxaban) 20 Mg Tablet 20 Mg PO DAILY Metformin Hcl 500 Mg Tablet 500 Mg PO DAILYWBKFT Pulmicort (Budesonide) 0.25 Mg/2 Ml Ampul.neb 1 Vial NEB BID Albuterol Sulfate Neb Soln (Albuterol Sulfate) 2.5 Mg/3 Ml Vial.neb 1 Vial NEB PRN Q2HR PRN Furosemide 40 Mg Tablet 1 Tab PO DAILY Vitamin D3 (Cholecalciferol (Vitamin D3)) 5,000 Unit Tablet 5,000 Unit PO DAILY Potassium Chloride 20 Meq Tablet.er 20 Meq PO DAILY Protonix (Pantoprazole Sodium) 20 Mg Tablet.dr 1 Tab PO DAILY Atorvastatin Calcium 10 Mg Tablet 10 Mg PO HS Symbicort 160-4.5 Mcg Inhaler (Budesonide/Formoterol Fumarate) 10.2 Gm Hfa.aer.ad 2 Puff IH BID Vitals/I & O Vital Sign - Last 24 Hours 10/30/18 10/30/18 10/30/18 10/30/18 11:00 12:01 15:14 15:40 Temp 97.9 98.6 97.9 98.6 Pulse 97 103 Resp 18 18 B/P (MAP) 126/79 (95) 110/73 (85) Pulse Ox 98 100 100 O2 Delivery Nasal Cannula Nasal Cannula Nasal Cannula Nasal Cannula O2 Flow Rate 3.0 3.0 3.0 3.0 10/30/18 10/30/18 10/30/18 10/30/18 19:10 20:00 20:12 20:12 Temp 98.6 98.6 Pulse 102 Resp 18 B/P (MAP) 112/64 (80) Pulse Ox 100 98 98 O2 Delivery Nasal Cannula Nasal Cannula Nasal Cannula Nasal Cannula O2 Flow Rate 3.0 3.0 3.0 3.0 10/30/18 10/31/18 10/31/18 10/31/18 23:45 00:23 03:32 07:15 Temp 98.7 98.0 97.1 98.7 98.0 97.1 Pulse 95 90 97 Resp 18 18 18 B/P (MAP) 117/72 (87) 135/92 (106) 118/81 (93) Pulse Ox 100 98 100 100 O2 Delivery Nasal Cannula Nasal Cannula Nasal Cannula Nasal Cannula O2 Flow Rate 3.0 3.0 3.0 3.0 10/31/18 07:28 Pulse Ox 100 O2 Delivery Nasal Cannula O2 Flow Rate 3.0 Intake and Output 10/30/18 10/30/18 10/31/18 15:00 23:00 07:00 Intake Total 300 ml 400 ml Output Total 350 ml 200 ml 200 ml Balance -350 ml 100 ml 200 ml KIRSTIE TREVINO MD Oct 31, 2018 09:18
[2018-10-31 10:56] VITALS: BP 108/73
[2018-10-31] MEDS: predniSONE 10 MG TABLET PO SCH (11:15)
[2018-10-31] MEDS: NYSTATIN 100,000 UNITS/ML 5 ML ORAL.SUSP. SWSW SCH ×4 (11:15→20:51)
[2018-10-31] MEDS: traMADol 50 MG TABLET PO PRN ×2 (12:26→19:53)
[2018-10-31] MEDS: LACTULOSE 20 GM/30 ML SOLUTION. PO PRN (12:29)
--- NOTE | 2018-10-31 14:57 | NUR ---
SW following pt for dc planning. Pt is well known to SW from multiple previous admissions. Pt has PMHx of end stage severe COPD/Emphysema on chronic O2, CHF and admitted for COPD exacerbation. SW spoke with pt at bedside and he states his sister's house has no air conditioning and all the hot air heat made his COPD worse. SW discussed with pt regarding placement (SNU vs LTC). Pt states he has to go home and take care of things and did like to expand beyond that. Pt also denies PT/OT needs. Pt is provided with a list of resources for assistance with utility, AC resources, [facility] and [facility] community resources and cooling centers. SW informed him to discuss with his sister about accessing provided resources to help with AC. Pt verbalized understanding and accepted resources. Pt is still high risk readmission due to unstable housing and poor social conditions. Discussed with Physician.
[2018-10-31] MEDS ORDERED: PRED-220 PO (15:10)
[2018-10-31] MEDS ORDERED: NYST100054 SWSW (15:10)
[2018-10-31 15:16] VITALS: BP 104/75
--- NOTE | 2018-10-31 15:24 | PDOC3 ---
Discharge Summary Visit Information Date of Admission: Oct 29, 2018 Date of Discharge: Nov 01, 2018 Admitting Diagnosis: Acute COPD exacerbation Final Diagnosis Problems Medical Problems: (1) Chronic respiratory failure Status: Chronic Brief Hospital Course Allergies Allergies Coded Allergies Type Severity Reaction Last Updated Verified No Known Medication Allergies Allergy Unknown 08/26/18 Yes Vital Signs Vital Signs Date Time Temp Pulse Resp B/P (MAP) Pulse Ox O2 Delivery O2 Flow Rate FiO2 10/31/18 12:26 Nasal Cannula 3.0 10/31/18 10:56 98.3 103 22 108/73 (85) 100 98.3 Lab Results Laboratory Tests Test 10/29/18 17:09 10/30/18 07:27 10/30/18 11:10 10/30/18 16:41 White Blood Count 6.3 x10^3/uL (4.0-11.0) Red Blood Count 3.85 x10^6/uL (4.30-5.70) Hemoglobin 8.6 g/dL (13.0-17.5) Hematocrit 28.0 % (39.0-53.0) Mean Corpuscular Volume 73 fL (79-100) Mean Corpuscular Hemoglobin 22 pg (25-35) Mean Corpuscular Hemoglobin Concent 31 g/dL (31-37) Red Cell Distribution Width 20.4 % (11.5-14.5) Platelet Count 327 x10^3/uL (140-400) Neutrophils (%) (Auto) 83 % (31-73) Lymphocytes (%) (Auto) 7 % (24-48) Monocytes (%) (Auto) 8 % (0-9) Eosinophils (%) (Auto) 0 % (0-3) Basophils (%) (Auto) 2 % (0-3) Neutrophils # (Auto) 5.2 x10^3/uL (1.8-7.7) Lymphocytes # (Auto) 0.5 x10^3/uL (1.0-4.8) Monocytes # (Auto) 0.5 x10^3/uL (0.0-1.1) Eosinophils # (Auto) 0.0 x10^3/uL (0.0-0.7) Basophils # (Auto) 0.1 x10^3/uL (0.0-0.2) Platelet Estimate Adequate (ADEQUATE) Hypochromasia Slight Anisocytosis Mod Microcytosis Slight Prothrombin Time 21.0 SEC (11.7-14.0) Prothromb Time International Ratio 1.8 (0.8-1.1) Sodium Level 141 mmol/L (136-145) Potassium Level 4.0 mmol/L (3.5-5.1) Chloride Level 101 mmol/L (98-107) Carbon Dioxide Level 34 mmol/L (21-32) Anion Gap 6 (6-14) Blood Urea Nitrogen 12 mg/dL (8-26) Creatinine 1.1 mg/dL (0.7-1.3) Estimated GFR (Cockcroft-Gault) 82.9 BUN/Creatinine Ratio 11 (6-20) Glucose Level 101 mg/dL (70-99) Calcium Level 9.5 mg/dL (8.5-10.1) Total Bilirubin 0.7 mg/dL (0.2-1.0) Aspartate Amino Transf (AST/SGOT) 23 U/L (15-37) Alanine Aminotransferase (ALT/SGPT) 29 U/L (16-63) Alkaline Phosphatase 113 U/L (46-116) Troponin I Quantitative < 0.017 ng/mL (0.000-0.055) FR-Lxb-D-Type Natriuretic Peptide 101 pg/mL (0-124) Total Protein 7.4 g/dL (6.4-8.2) Albumin 4.1 g/dL (3.4-5.0) Albumin/Globulin Ratio 1.2 (1.0-1.7) Glucose (Fingerstick) 122 mg/dL (70-99) 112 mg/dL (70-99) 125 mg/dL (70-99) Test 10/30/18 20:42 10/31/18 07:32 10/31/18 11:35 Glucose (Fingerstick) 117 mg/dL (70-99) 123 mg/dL (70-99) 144 mg/dL (70-99) Laboratory Tests Test 10/30/18 16:41 10/30/18 20:42 10/31/18 07:32 10/31/18 11:35 Glucose (Fingerstick) 125 mg/dL (70-99) 117 mg/dL (70-99) 123 mg/dL (70-99) 144 mg/dL (70-99) Brief Hospital Course Mr Coleman is a 57 year old male w/ PMHx end stage severe COPD/Emphysema on chronic O2, CHF who presents to the ER with complaints of shortness of breath, productive cough with thick clear sputum, and increased need for O2 since last night. He states he was at his sister's house where there was no air conditioning. Patient states that all the hot air heat of the fans blowing made his COPD worse. Patient states he's been doing nebulizer and albuterol treatments and using his inhaler and he is even increased his prednisone from 10 mg a day to 30 mg a day and he is still having difficulties with breathing. Patient states he feels extremely tight in the chest. Patient states he up his oxygen at home. Patient states usually wears 3 L of oxygen. EKG shows sinus rhythm and no STEMI. Patient denies chest pain, nausea, vomiting, abdominal pain, diarrhea, dizziness , numbness or tingling, syncope, headache, fever, recent illness, dysuria. On prior visit [address] showed new T9 compression fracture - unable to tolerate laying flat for MRI or for kyphoplasty Recent PE dx at [place] a few months ago, 2 clots, on anticoagulation now on xarelto F/u in [place] for eventual bullectomy and [facility] for his PE. He also c/o right eye irritation and pain on swallowing, particularly large pills, feels he has thrush again Overnight had IV steroids. His breathing is stable today. He states he just isn't having a good day today, emotionally. His thrush and conjunctivitis as well as breathing improved with 2 days of treatment. Has ambient temp of 72F outdoors today A/P: End Stage COPD with acute exacerbation - Home O2 use. Steroids IV, nebs. Needs air conditioning Acute hypoxic respiratory failure - seems already a bit improved. 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 Constipation - cont meds Back pain - T9 fracture previously, this is improved Right conjunctivitis - erythomycin QID Thrush - nystastin swish and swallow Greater than 30 minutes spent on d/c Discharge Information Condition at Discharge: Improved Follow Up: Weeks (1) Disposition/Orders: D/C to Home Scheduled Albuterol Sulfate (Ventolin Hfa Inhaler) 18 Gm Hfa.aer.ad, 2 PUFF INH Q4HRS for FOR ASTHMA, #1 Ref 0 Prescribed by: Crys Guthrie APRN on 05/10/18 1920 Aspirin (Aspirin Ec) 81 Mg Tablet.dr, 81 MG PO DAILYWBKFT for heart for 30 Days, #30 Prescribed by: TOMAS BAIG MD on 08/28/18 1231 Last Action: Continued on 10/29/182040 by KIRSTIE TREVINO MD Atorvastatin Calcium (Atorvastatin Calcium) 10 Mg Tablet, 10 MG PO HS for FOR CHOLESTEROL, #30 Ref 0 (Reported) Entered as Reported by: Romero Bland on 08/21/17 0246 Last Action: Continued on 10/29/182040 by KIRSTIE TREVINO MD Benzonatate (Tessalon Perle) 100 Mg Capsule, 1 CAP PO TID for cough, #21 Prescribed by: RAI DURANT on 10/28/18 0825 Last Action: Continued on 10/29/182040 by KIRSTIE TREVINO MD Budesonide (Pulmicort) 0.25 Mg/2 Ml Ampul.neb, 1 VIAL NEB BID for SHORT OF BREATH, #30 (Reported) Entered as Reported by: VINH MURILLO on 08/25/18 2310 Last Action: Converted on 10/29/182040 by KIRSTIE TREVINO MD Budesonide/Formoterol Fumarate (Symbicort 160-4.5 Mcg Inhaler) 10.2 Gm Hfa.aer.ad, 2 PUFF IH BID, #10.6 Ref 3 (Reported) Entered as Reported by: IMELDA PENNY on 09/21/156 Cholecalciferol (Vitamin D3) (Vitamin D3) 5,000 Unit Tablet, 5,000 UNIT PO DAILY for supplement, (Reported) Entered as Reported by: DOE NAGY on 03/15/18 2133 Furosemide (Furosemide) 40 Mg Tablet, 1 TAB PO DAILY for water, #30 Ref 5 (Reported) Entered as Reported by: Romero Bland on 06/20/18 2044 Insulin Lispro (Humalog) 100 Unit/1 Ml Insuln.pen, 0 UNITS SQ TIDWMEALS for glucose for 30 Days, #1 Prescribed by: TOMAS BAIG MD on 08/28/18 1231 Last Action: Continued on 10/29/182040 by KIRSTIE TREVINO MD Ipratropium/Albuterol Sulfate (Duoneb 0.5-3(2.5) Mg/3 Ml) 3 Ml Ampul.neb, 3 ML NEB QID for copd, #120 Prescribed by: RAI DURANT on 10/28/18 1020 Lidocaine (Lidocaine PATCH ) 1 Each Adh..patch, 1 EACH TP DAILY for FOR LOCAL PAIN for 30 Days, #30 REMOVE AFTER 12 HOURS Prescribed by: RAI DURANT on 09/11/18 1058 Last Action: Continued on 10/29/182040 by KIRSTIE TREVINO MD Metformin Hcl (Metformin Hcl) 500 Mg Tablet, 500 MG PO DAILYWBKFT for ANTI- DIABETIC, Ref 0 (Reported) Entered as Reported by: MONICO SIEGEL on 09/09/18 1418 Last Action: Continued on 10/29/182040 by KIRSTIE TREVINO MD Metoclopramide Hcl (Reglan) 10 Mg Tablet, 0.5 TAB PO QID for gerd for 30 Days, #60 Prescribed by: TOMAS BAIG MD on 02/14/18 1437 Last Action: Continued on 10/29/182040 by KIRSTIE TREVINO MD Montelukast Sodium (Montelukast Sodium Tablet ) 10 Mg Tablet, 10 MG PO QHS for copd, #60 Prescribed by: RAI DURANT on 10/28/18 0825 Last Action: Continued on 10/29/182040 by KIRSTIE TREVINO MD Nystatin (Nystatin) 100,000 Unit/1 Ml Oral.susp, 5 ML SWSW [id number] for Thrush for 5 Days, #100 Prescribed by: KIRSTIE TREVINO MD on 10/31/18 1510 Pantoprazole Sodium (Protonix) 20 Mg Tablet.dr, 1 TAB PO DAILY, #30 (Reported) Entered as Reported by: FREDA SUAREZ on 11/18/17 2351 Last Action: Converted on 10/29/182040 by KIRSTIE TREVINO MD Potassium Chloride (Potassium Chloride) 20 Meq Tablet.er, 20 MEQ PO DAILY for supplement, (Reported) Entered as Reported by: NANCY CHAPMAN on 01/13/182020 Prednisone (Prednisone ) 10 Mg Tablet, 10 MG PO DAILY for copd for 5 Days, #5 Prescribed by: KIRSTIE TREVINO MD on 10/31/18 1510 Rivaroxaban (Xarelto) 20 Mg Tablet, 20 MG PO DAILY for stroke prevention, (Reported) Entered as Reported by: MONICO SIEGEL on 09/09/18 1418 Last Action: Converted on 10/29/182040 by KIRSTIE TREVINO MD Scheduled PRN Acetaminophen (Tylenol) 325 Mg Tablet, 650 MG PO PRN Q4HRS PRN for TEMP OVER 100.4F OR MILD PAIN for 10 Days, #30 Prescribed by: TOMAS BAIG MD on 05/30/18 164 Last Action: Continued on 10/29/182040 by KIRSTIE TREVINO MD Albuterol Sulfate (Albuterol Sulfate Neb Soln) 2.5 Mg/3 Ml Vial.neb, 1 VIAL NEB PRN Q2HR PRN for SEDATION, #50 (Reported) Entered as Reported by: VINH MURILLO on 08/25/18 2310 Last Action: Continued on 10/29/182040 by KIRSTIE TREVINO MD Cyclobenzaprine Hcl (Cyclobenzaprine Hcl) 5 Mg Tablet, 5 MG PO PRN TID PRN for PAIN, #15 Prescribed by: TEVIN GOODWIN MD on 08/20/18 0219 Guaifenesin (Guaifenesin) 100 Mg/5 Ml Liquid, 200 MG PO PRN Q4HRS PRN for COUGH for 30 Days, #120 Prescribed by: TOMAS BAIG MD on 05/30/18 164 Last Action: Continued on 10/29/182040 by KIRSTIE TREVINO MD Lorazepam (Ativan) 1 Mg Tablet, 1 MG PO PRN BID PRN for ANXIETY / AGITATION, #30 Prescribed by: RAI DURANT on 09/11/18 0914 Last Action: Continued on 10/29/182040 by KIRSTIE TREVINO MD Tramadol Hcl (Tramadol Hcl) 50 Mg Tablet, 50 MG PO PRN Q6HRS PRN for PAIN for 6 Days, #24 Prescribed by: KIRSTIE TREVINO MD on 07/12/18 1108 Last Action: Continued on 10/29/182040 by KIRSTIE TREVINO MD Discontinued Medications Azithromycin (Azithromycin Tablet) 500 Mg Tablet, 500 MG PO DAILY for Chronic PNA, Ref 0 (Reported) Entered as Reported by: MONICO SIEGEL on 09/09/18 141 Doxycycline Hyclate (Doxycycline Hyclate) 100 Mg Tablet, 1 TAB PO BID, #20 Prescribed by: MAURA SEGURA APRN on 09/08/182000 Tizanidine Hcl (Tizanidine Hcl) 4 Mg Tablet, 4 MG PO QID PRN for MUSCLE SPASMS, (Reported) Entered as Reported by: MONICO SIEGEL on 09/09/181417 Tramadol Hcl (Tramadol Hcl) 50 Mg Tablet, 50 MG PO Q6HRS PRN for PAIN, #10 Prescribed by: MAURA SEGURA APRN on 09/08/182035 KIRSTIE TREVINO MD Oct 31, 2018 15:24
--- NOTE | 2018-10-31 17:26 | NUR ---
PM MEDS: given late due to pt sleeping.
[2018-10-31 19:30] VITALS: BP 105/64
[2018-10-31] MEDS: ATORVASTATIN CALCIUM 10 MG TABLET. PO SCH (20:51)
[2018-10-31] MEDS: MONTELUKAST SODIUM 10 MG TABLET. PO SCH (20:52)
[2018-10-31 23:30] VITALS: BP 112/76
[2018-11-01] MEDS: traMADol 50 MG TABLET PO PRN ×2 (03:15→09:37)
[2018-11-01 03:25] VITALS: BP 113/63
[2018-11-01] MEDS: ALBUTEROL SULFATE 2.5 MG/3 ML NEBU. NEB PRN (03:27)
[2018-11-01 07:00] VITALS: BP 132/88
[2018-11-01] MEDS: BUDESONIDE 0.5 MG/2 ML NEBU. NEB SCH (07:57)
[2018-11-01] MEDS: IPRATRPIUM/ALBUTEROL 0.5/2.5MG 3 ML NEBU. NEB SCH ×2 (07:57→11:54)
--- NOTE | 2018-11-01 08:25 | PDOC ---
PROGRESS NOTES Chief Complaint Chief Complaint A/P: End Stage COPD with acute exacerbation - Home O2 use. Steroids IV, nebs. Needs air conditioning Acute hypoxic respiratory failure - seems already a bit improved. 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 Needs to discharge to location with given the temperatures this week. 28 minutes spent on chart review, imaging, coordination of care. Will d/w if he wishes for skilled vs home with voucher for his sister to install air conditioning units History of Present Illness History of Present Illness Mr Coleman is a 57 year old male w/ PMHx end stage severe COPD/Emphysema on chronic O2, CHF who presents to the ER with complaints of shortness of breath, productive cough with thick clear sputum, and increased need for O2 since last night. He states he was at his sister's house where there was no air conditioning. Patient states that all the hot air heat of the fans blowing made his COPD worse. Patient states he's been doing nebulizer and albuterol treatments and using his inhaler and he is even increased his prednisone from 10 mg a day to 30 mg a day and he is still having difficulties with breathing. Patient states he feels extremely tight in the chest. Patient states he up his oxygen at home. Patient states usually wears 3 L of oxygen. EKG shows sinus rhythm and no STEMI. Patient denies chest pain, nausea, vomiting, abdominal pain, diarrhea, dizziness, numbness or tingling, syncope, headache, fever, recent illness, dysuria. On prior visit [address] showed new T9 compression fracture - unable to tolerate laying flat for MRI or for kyphoplasty Recent PE dx at [place] a few months ago, 2 clots, on anticoagulation now on xarelto F/u in [place] for eventual bullectomy and [facility] for his PE. He also c/o right eye irritation and pain on swallowing, particularly large pills, feels he has thrush again Overnight had IV steroids. His breathing is stable today. He states he just isn't having a good day today. He has an appt at 2:45 today and his sister has her AC fixed and the ambient temperature outdoors today is down to 72F from 95F yesterday. Vitals Vitals Vital Signs Date Time Temp Pulse Resp B/P (MAP) Pulse Ox O2 Delivery O2 Flow Rate FiO2 11/01/18 08:03 100 Nasal Cannula 2.5 11/01/18 07:00 98.2 68 20 132/88 (103) 98.2 Physical Exam General: Alert, Oriented X3, Cooperative, No acute distress Lungs: Wheezing (ex.), Other (diminshed ) Abdomen: Normal bowel sounds, Soft, No tenderness, No hepatosplenomegaly, No masses Extremities: No clubbing, No cyanosis, No edema, Normal pulses, No tenderness/swelling Skin: No rashes, No breakdown, No significant lesion Labs LABS Laboratory Tests Test 10/31/18 11:35 10/31/18 16:58 10/31/18 21:10 11/01/18 07:28 Glucose (Fingerstick) 144 mg/dL (70-99) 141 mg/dL (70-99) 144 mg/dL (70-99) 86 mg/dL (70-99) Assessment and Plan Assessmemt and Plan Problems Medical Problems: (1) Chronic respiratory failure Status: Chronic Comment Review of Relevant I have reviewed the following items franki (where applicable) has been applied. Labs Laboratory Tests Test 10/30/18 11:10 10/30/18 16:41 10/30/18 20:42 10/31/18 07:32 Glucose (Fingerstick) 112 mg/dL (70-99) 125 mg/dL (70-99) 117 mg/dL (70-99) 123 mg/dL (70-99) Test 10/31/18 11:35 10/31/18 16:58 10/31/18 21:10 11/01/18 07:28 Glucose (Fingerstick) 144 mg/dL (70-99) 141 mg/dL (70-99) 144 mg/dL (70-99) 86 mg/dL (70-99) Laboratory Tests Test 10/31/18 11:35 10/31/18 16:58 10/31/18 21:10 11/01/18 07:28 Glucose (Fingerstick) 144 mg/dL (70-99) 141 mg/dL (70-99) 144 mg/dL (70-99) 86 mg/dL (70-99) Medications Current Medications Albuterol Sulfate (Ventolin Neb Soln) 2.5 mg 1X ONCE NEB Last administered on 10/29/18at 17:01; Start 10/29/18 at 17:00; Stop 10/29/18 at 17:01; Status DC Methylprednisolone Sodium Succinate (SOLU-Medrol 125MG VIAL) 62.5 mg 1X ONCE IV Last administered on 10/29/18at 17:56; Start 10/29/18 at 17:00; Stop 10/29/18 at 17:01; Status DC Ondansetron HCl (Zofran) 4 mg PRN Q8HRS PRN IV NAUSEA/VOMITING; Start 10/29/18 at 20:00; Stop 10/30/18 at 19:59; Status DC Fentanyl Citrate (Fentanyl 2ml Vial) 50 mcg PRN Q1HR PRN IV PAIN; Start 9 at 20:00; Stop 10/30/18 at 19:59; Status DC Albuterol/ Ipratropium (Duoneb) 3 ml RTQID NEB Last administered on 11/01/18at 07:57; Start 10/29/18 at 20:00 Famotidine (Pepcid Vial) 20 mg 1X ONCE IVP Last administered on 10/29/18at 20:18; Start 10/29/18 at 20:45; Stop 10/29/18 at 20:46; Status DC Acetaminophen (Tylenol) 650 mg PRN Q4HRS PRN PO TEMP OVER 100.4F OR MILD PAIN; Start 10/29/18 at 20:45 Albuterol Sulfate (Ventolin Neb Soln) 2.5 mg PRN Q2HR PRN NEB SHORTNESS OF BREATH Last administered on 11/01/18at 03:27; Start 10/29/18 at 20:45 Aspirin (Ecotrin) 81 mg DAILYWBKFT PO Last administered on 10/31/18at 08:36; Start 10/30/18 at 08:00 Atorvastatin Calcium (Lipitor) 10 mg HS PO Last administered on 10/31/18at 20:54; Start 10/29/18 at 21:00 Benzonatate (Tessalon Perle) 100 mg TID PO Last administered on 10/31/18 20:54; Start 10/29/18 at 21:00 Guaifenesin (Robitussin) 200 mg PRN Q4HRS PRN PO COUGH; Start 10/29/18 at 20:45 Insulin Human Lispro (HumaLOG) TIDWMEALS SQ ; Start 10/30/18 at 08:00 Lidocaine (Lidoderm) 1 patch DAILY TP Last administered on 10/31/18 08:36; Start 10/30/18 at 09:00 Lorazepam (Ativan) 1 mg PRN BID PRN PO ANXIETY / AGITATION Last administered on 10/31/18 00:33; Start 10/29/18 at 20:45 Metformin HCl (Glucophage) 500 mg DAILYWBKFT PO Last administered on 10/31/18 08:36; Start 10/30/18 at 08:00 Metoclopramide HCl (Reglan) 5 mg QID PO Last administered on 10/31/18 20:54; Start 10/29/18 at 21:00 Montelukast Sodium (Singulair) 10 mg QHS PO Last administered on 10/31/18 20:54; Start 10/29/18 at 21:00 Tramadol HCl (Ultram) 50 mg PRN Q6HRS PRN PO PAIN Last administered on 11/01/18 03:15; Start 10/29/18 at 20:45 Budesonide (Pulmicort) 0.5 mg RTBID NEB Last administered on 11/01/18 07:57; Start 10/29/18 at 22:00 Pantoprazole Sodium (Protonix) 40 mg DAILYAC PO Last administered on 10/31/18 08:36; Start 10/30/18 at 07:30 Rivaroxaban (Xarelto) 20 mg DAILY PO Last administered on 10/31/18 08:36; Start 10/30/18 at 09:00 Erythromycin (Romycin) 0.25 inch QID OD Last administered on 10/31/18 20:54; Start 10/30/18 at 11:00 Nystatin (Nystatin Oral Susp) 5 ml [id number] Last administered on 10/31/18 20:54; Start 10/30/18 at 11:00 Lactulose (Lactulose) 20 gm PRN DAILY PRN PO CONSTIPATION Last administered on 10/31/18at 12:29; Start 10/30/18 at 13:45 Methylprednisolone Sodium Succinate (SOLU-Medrol 125MG VIAL) 62.5 mg 1X ONCE IV Last administered on 10/31/18at 02:53; Start 10/31/18 at 02:45; Stop 10/31/18 at 02:46; Status DC Prednisone (Prednisone) 10 mg DAILY PO Last administered on 10/31/18at 11:15; Start 10/31/18 at 10:30 Active Scripts Active Prednisone (Prednisone) 10 Mg Tablet 10 Mg PO DAILY 5 Days Nystatin 100,000 Unit/1 Ml Oral.susp 5 Ml SWSW [id number] 5 Days Duoneb 0.5-3(2.5) Mg/3 Ml (Albuterol/Ipratropium) 3 Ml Ampul.neb 3 Ml NEB QID Tessalon Perle (Benzonatate) 100 Mg Capsule 1 Cap PO TID Montelukast Sodium Tablet (Montelukast Sodium) 10 Mg Tablet 10 Mg PO QHS Lidocaine PATCH (Lidocaine) 1 Each Adh..patch 1 Each TP DAILY 30 Days REMOVE AFTER 12 HOURS Ativan (Lorazepam) 1 Mg Tablet 1 Mg PO PRN BID PRN Humalog (Insulin Lispro) 100 Unit/1 Ml Insuln.pen 0 Units SQ TIDWMEALS 30 Days Aspirin Ec (Aspirin) 81 Mg Tablet.dr 81 Mg PO DAILYWBKFT 30 Days Cyclobenzaprine Hcl 5 Mg Tablet 5 Mg PO PRN TID PRN Tramadol Hcl 50 Mg Tablet 50 Mg PO PRN Q6HRS PRN 6 Days Guaifenesin 100 Mg/5 Ml Liquid 200 Mg PO PRN Q4HRS PRN 30 Days Tylenol (Acetaminophen) 325 Mg Tablet 650 Mg PO PRN Q4HRS PRN 10 Days Ventolin Hfa Inhaler (Albuterol Sulfate) 18 Gm Hfa.aer.ad 2 Puff INH Q4HRS Reglan (Metoclopramide Hcl) 10 Mg Tablet 0.5 Tab PO QID 30 Days Reported Xarelto (Rivaroxaban) 20 Mg Tablet 20 Mg PO DAILY Metformin Hcl 500 Mg Tablet 500 Mg PO DAILYWBKFT Pulmicort (Budesonide) 0.25 Mg/2 Ml Ampul.neb 1 Vial NEB BID Albuterol Sulfate Neb Soln (Albuterol Sulfate) 2.5 Mg/3 Ml Vial.neb 1 Vial NEB PRN Q2HR PRN Furosemide 40 Mg Tablet 1 Tab PO DAILY Vitamin D3 (Cholecalciferol (Vitamin D3)) 5,000 Unit Tablet 5,000 Unit PO DAILY Potassium Chloride 20 Meq Tablet.er 20 Meq PO DAILY Protonix (Pantoprazole Sodium) 20 Mg Tablet.dr 1 Tab PO DAILY Atorvastatin Calcium 10 Mg Tablet 10 Mg PO HS Symbicort 160-4.5 Mcg Inhaler (Budesonide/Formoterol Fumarate) 10.2 Gm Hfa.aer.ad 2 Puff IH BID Vitals/I & O Vital Sign - Last 24 Hours 10/31/18 10/31/18 10/31/18 10/31/18 10:56 11:55 12:26 15:16 Temp 98.3 98.5 98.3 98.5 Pulse 103 108 Resp 22 20 B/P (MAP) 108/73 (85) 104/75 (85) Pulse Ox 100 98 O2 Delivery Nasal Cannula Nasal Cannula Nasal Cannula Nasal Cannula O2 Flow Rate 3.0 3.0 3.0 3.0 10/31/18 10/31/18 10/31/18 10/31/18 15:48 15:52 19:30 19:55 Temp 99.3 99.3 Pulse 109 Resp 18 18 B/P (MAP) 105/64 (78) Pulse Ox 100 O2 Delivery Nasal Cannula Nasal Cannula Nasal Cannula Nasal Cannula O2 Flow Rate 3.0 3.0 3.0 3.0 10/31/18 10/31/18 10/31/18 10/31/18 20:00 20:31 20:59 23:30 Temp 98.0 98.0 Pulse 103 Resp 20 18 B/P (MAP) 112/76 (88) Pulse Ox 100 100 98 O2 Delivery Nasal Cannula Nasal Cannula Nasal Cannula Nasal Cannula O2 Flow Rate 3.0 3.0 3.0 3.0 11/01/18 11/01/18 11/01/18 11/01/18 03:15 03:25 03:27 05:34 Temp 99.0 99.0 Pulse 99 Resp 18 18 B/P (MAP) 113/63 (80) Pulse Ox 98 100 99 99 O2 Delivery Nasal Cannula Nasal Cannula Nasal Cannula Nasal Cannula O2 Flow Rate 3.0 3.0 2.5 3.0 11/01/18 11/01/18 11/01/18 07:00 08:03 08:03 Temp 98.2 98.2 Pulse 68 Resp 20 B/P (MAP) 132/88 (103) Pulse Ox 98 100 100 O2 Delivery Nasal Cannula Nasal Cannula Nasal Cannula O2 Flow Rate 3.0 2.5 2.5 Intake and Output 10/31/18 10/31/18 11/01/18 14:59 22:59 06:59 Intake Total 520 ml 420 ml 700 ml Output Total 300 ml 500 ml 150 ml Balance 220 ml -80 ml 550 ml KIRSTIE TREVINO MD Nov 01, 2018 08:25
[2018-11-01] MEDS: ERYTHROMYCIN 0.5% OPHTH OINTMENT 1GM TUBE. OD SCH ×2 (09:00→12:01)
--- NOTE | 2018-11-01 09:22 | PDOC ---
PULMONARY PROGRESS NOTES Subjective Pt. is resting at edge of bed this am, denies SOA and denies increased cough. Remains on 3 liters N/C which is his baseline requirement. Vitals Vital Signs Date Time Temp Pulse Resp B/P (MAP) Pulse Ox O2 Delivery O2 Flow Rate FiO2 11/01/18 08:03 100 Nasal Cannula 2.5 11/01/18 07:00 98.2 68 20 132/88 (103) 98.2 ROS: No Nausea, No Chest Pain, No Increase Cough General: Alert, Oriented X4, No acute distress Lungs: Clear, Other (diminshed bases ) Cardiovascular: S1, S2 Abdomen: Soft, Non-tender Neuro Exam: Alert, Oriented, Normal Speech Extremities: No Edema Skin: Warm, Dry Labs Laboratory Tests Test 10/30/18 11:10 10/30/18 16:41 10/30/18 20:42 10/31/18 07:32 Glucose (Fingerstick) 112 mg/dL (70-99) 125 mg/dL (70-99) 117 mg/dL (70-99) 123 mg/dL (70-99) Test 10/31/18 11:35 10/31/18 16:58 10/31/18 21:10 11/01/18 07:28 Glucose (Fingerstick) 144 mg/dL (70-99) 141 mg/dL (70-99) 144 mg/dL (70-99) 86 mg/dL (70-99) Laboratory Tests Test 10/31/18 11:35 10/31/18 16:58 10/31/18 21:10 11/01/18 07:28 Glucose (Fingerstick) 144 mg/dL (70-99) 141 mg/dL (70-99) 144 mg/dL (70-99) 86 mg/dL (70-99) Medications Active Scripts Medications Dose Route/Sig Max Daily Dose Days Date Category Dose Instructions Duoneb 0.5-3(2.5) Mg/3 Ml (Albuterol/Ipratropium) 3 Ml Ampul.neb 3 Ml NEB QID 10/28/18 Rx Tessalon Perle (Benzonatate) 100 Mg Capsule 1 Cap PO TID 10/28/18 Rx Montelukast Sodium Tablet (Montelukast Sodium) 10 Mg Tablet 10 Mg PO QHS 10/28/18 Rx Lidocaine PATCH (Lidocaine) 1 Each Adh..patch 1 Each TP DAILY 30 09/11/18 Rx REMOVE AFTER 12 HOURS Ativan (Lorazepam) 1 Mg Tablet 1 Mg PO PRN BID PRN 09/11/18 Rx Xarelto (Rivaroxaban) 20 Mg Tablet 20 Mg PO DAILY 09/09/18 Reported Metformin Hcl 500 Mg Tablet 500 Mg PO DAILYWBKFT 09/09/18 Reported Humalog (Insulin Lispro) 100 Unit/1 Ml Insuln.pen 0 Units SQ TIDWMEALS 08/28/18 Rx Aspirin Ec (Aspirin) 81 Mg Tablet. 81 Mg PO DAILYWBKFT 08/28/18 Rx Pulmicort (Budesonide) 0.25 Mg/2 Ml Ampul.neb 1 Vial NEB BID 08/25/18 Reported Albuterol Sulfate Neb Soln (Albuterol Sulfate) 2.5 Mg/3 Ml Vial.neb 1 Vial NEB PRN Q2HR PRN 08/25/18 Reported Cyclobenzaprine Hcl 5 Mg Tablet 5 Mg PO PRN TID PRN 08/20/18 Rx Tramadol Hcl 50 Mg Tablet 50 Mg PO PRN Q6HRS PRN 6 07/12/18 Rx Furosemide 40 Mg Tablet 1 Tab PO DAILY 06/20/18 Reported Guaifenesin 100 Mg/5 Ml Liquid 200 Mg PO PRN Q4HRS PRN 30 05/30/18 Rx Tylenol (Acetaminophen) 325 Mg Tablet 650 Mg PO PRN Q4HRS PRN 10 05/30/18 Rx Ventolin Hfa Inhaler (Albuterol Sulfate) 18 Gm Hfa.aer.ad 2 Puff INH Q4HRS 05/10/18 Rx Vitamin D3 (Cholecalciferol (Vitamin D3)) 5,000 Unit Tablet 5,000 Unit PO DAILY 03/15/18 Reported Reglan (Metoclopramide Hcl) 10 Mg Tablet 0.5 Tab PO QID 30 02/14/18 Rx Potassium Chloride 20 Meq Tablet.er 20 Meq PO DAILY 01/13/18 Reported Protonix (Pantoprazole Sodium) 20 Mg Tablet. 1 Tab PO DAILY 11/18/17 Reported Atorvastatin Calcium 10 Mg Tablet 10 Mg PO HS 08/21/17 Reported Symbicort 160-4.5 Mcg Inhaler (Budesonide/Formoterol Fumarate) 10.2 Gm Hfa.aer.ad 2 Puff IH BID 09/21/15 Reported Impression . 1. Chronic respiratory failure with mild exacerbation secondary to environmental causes -stable 2. CXR stable 3. Chronic hypoxic respiratory failure with end-stage chronic obstructive pulmonary disease and extensive bullous lung disease on the left. Clinically,stable. 4. constipation, resolved 5. history of PE, followup CT here had resolved. He is on Xarelto. Plan . 1. Continue with present oxygen, 3 liters at baseline 2. Continue present bronchodilators. 3. Continue Xarelto. 4. Supportive treatment. 5. guest services associate to assist with D/C planning 6. stable from our standpoint to D/C 7. Discussed with VIN AMAYA MD Nov 01, 2018 09:22
[2018-11-01] MEDS: metFORMIN 500 MG TABLET PO SCH (09:24)
[2018-11-01] MEDS: PANTOPRAZOLE 40 MG TABLET.DR. PO SCH (09:24)
[2018-11-01] MEDS: ASPIRIN ENTERIC COATED 81 MG TABLET.DR. PO SCH (09:24)
[2018-11-01] MEDS: METOCLOPRAMIDE 10 MG TABLET. PO SCH ×2 (09:25→12:45)
[2018-11-01] MEDS: BENZONATATE 100 MG CAPSULE. PO SCH (09:25)
[2018-11-01] MEDS: predniSONE 10 MG TABLET PO SCH (09:25)
[2018-11-01] MEDS: LIDOCAINE (700MG/PATCH) PATCH. TP SCH (09:26)
[2018-11-01] MEDS: NYSTATIN 100,000 UNITS/ML 5 ML ORAL.SUSP. SWSW SCH ×2 (09:26→12:46)
[2018-11-01] MEDS: RIVAROXABAN 10 MG TABLET. PO SCH (09:26)
[2018-11-01] MEDS: LACTULOSE 20 GM/30 ML SOLUTION. PO PRN (09:36)
[2018-11-01 11:00] VITALS: BP 127/80
--- NOTE | 2018-11-01 14:12 | NUR ---
Discharge teaching provided written and verbal to pt,understanding verbalized. Dismissed to home with all belongings accompanied by his brother. Transported to exit per w/c at 1409.
[2018-11-03] MEDS ORDERED: POLY119P4 PO (12:37)
== END 2018-11-01 14:09 | disposition home or self-care (01) | DRG 190 ==
LOC: ER 16:02 → 6 SOUTH 19:08
PROVIDERS: ADMIT Internal Medicine; ATTEND Internal Medicine
DX: J43.9 Emphysema, unspecified (principal); J96.21 Acute and chronic respiratory failure with hypoxia; I13.0 Hypertensive heart and chronic kidney disease with heart failure and stage 1 through stage 4 chronic kidney disease, or unspecified chronic kidney disease; B37.9 Candidiasis, unspecified; E11.22 Type 2 diabetes mellitus with diabetic chronic kidney disease; E78.5 Hyperlipidemia, unspecified; F32.9 Major depressive disorder, single episode, unspecified; F41.9 Anxiety disorder, unspecified; H10.9 Unspecified conjunctivitis; I50.9 Heart failure, unspecified; K21.9 Gastro-esophageal reflux disease without esophagitis; K59.00 Constipation, unspecified; M81.0 Age-related osteoporosis without current pathological fracture; N18.9 Chronic kidney disease, unspecified; T38.0X5A Adverse effect of glucocorticoids and synthetic analogues, initial encounter; Z79.01 Long term (current) use of anticoagulants; Z79.4 Long term (current) use of insulin; Z79.51 Long term (current) use of inhaled steroids; Z79.52 Long term (current) use of systemic steroids; Z79.899 Other long term (current) drug therapy; Z82.49 Family history of ischemic heart disease and other diseases of the circulatory system; Z87.891 Personal history of nicotine dependence; Z99.81 Dependence on supplemental oxygen; Z86.711 Personal history of pulmonary embolism
CPT/HCPCS: 36415; 71046; 80053; 82962; 83880; 84484; 85025; 85610; 93005; 94640; 94760; 96374; 96375; J1815; J2930; J3490; J7512; J7613; J7620; J7626; J8597; 99285-25; G0378

== ENCOUNTER 2018-11-04 18:25 | Inpatient (IN) | payer MEDICARE, MEDICAID ==
[~2018-11-04] VITALS: Ht 175.3 cm; Wt 63.0 kg
[~2018-11-04 18:25] MED LIST changes: +DOXY-96 PO; -DOXY100T9 PO; +POLY119P4 PO
[2018-11-04] MEDS ORDERED: methylPREDNISolone SOD SUCC PF 125 MG/2 ML VIAL. IV ONE (18:45)
[2018-11-04] MEDS ORDERED: IPRATRPIUM/ALBUTEROL 0.5/2.5MG 3 ML NEBU. NEB ONE (18:45)
--- NOTE | 2018-11-04 18:45 | PHYS DOC ---
Past Medical History Past Medical History: Anxiety, Bronchitis, CHF, COPD Additional Past Medical Histor: EMPHYSEMA, OSTEOPOROSIS Past Surgical History: No Surgical History Additional Past Surgical Histo: HERNIA REPAIR Alcohol Use: None Drug Use: None Adult General HPI HPI 58-year-old male presents to the emergency department with complaints of shortness of breath. Patient's underlying history of chronic respiratory failure, 3 L, COPD. He is well states he has thrush and is currently on nystatin. He describes cough, white phlegm production around 5PM today.He denies any chest pain,patient denies nausea, vomiting, abdominal pain. Movements make his shortness of breath worse. Nothing makes it better. On initial evaluation, EMS states saturations in the 70s, he received 2 treatments prior to his arrival reportedly has saturations up to 100% however 93-94% in the emergency department. Review of Systems Review of Systems Respiratory: Shortness of breath, cough Cardiovascular: No additional information not addressed in HPI [] GI: Denies abdominal pain, nausea, vomiting, bloody stools or diarrhea [] : Denies dysuria or hematuria [] Musculoskeletal: Chronic back pain Neurologic: Denies headache, focal weakness or sensory changes [] All other systems were reviewed and found to be within normal limits, except as documented in this note. Current Medications Current Medications Current Medications Medications (Trade) Dose Ordered Sig/[facility] Start Time Stop Time Status Last Admin Dose Admin Albuterol/ Ipratropium (Duoneb) 3 ml 1X ONCE 11/04/18 18:45 11/04/18 18:46 DC 11/04/18 18:55 3 ML Levofloxacin/ Dextrose 150 ml @ 100 mls/hr 1X ONCE 11/04/18 20:30 11/04/18 21:59 Methylprednisolone Sodium Succinate (SOLU-Medrol 125MG VIAL) 125 mg 1X ONCE 11/04/18 19:45 11/04/18 19:48 DC 11/04/18 19:54 125 MG Allergies Allergies Allergies Coded Allergies Type Severity Reaction Last Updated Verified No Known Medication Allergies Allergy Unknown 08/26/18 Yes Physical Exam Physical Exam Constitutional: Well developed, well nourished, mild distress and shortness of breath, nontoxic appearing HENT: Normocephalic, atraumatic, bilateral external ears normal, oropharynx moist, no oral exudates, nose normal. [ Cardiovascular:Heart rate regular rhythm, no murmur [] Lungs & Thorax: Decreased breath sounds, occasional wheeze Abdomen: Bowel sounds normal, soft, no tenderness, no masses, no pulsatile masses. [] Skin: Warm, dry, no erythema, no rash. [] Extremities: No tenderness, no cyanosis, no edema. [] Neurologic: Alert and oriented X 3, no focal deficits noted. [] Psychologic: Affect normal, judgement normal, mood normal. [] Current Patient Data Vital Signs Vital Signs Date Time Temp Pulse Resp B/P (MAP) Pulse Ox O2 Delivery O2 Flow Rate FiO2 11/04/18 20:00 108 22 142/63 (89) 98 Nasal Cannula 3.0 11/04/18 18:30 99.4 99.4 Lab Values Laboratory Tests Test 11/04/18 17:40 White Blood Count 7.2 x10^3/uL (4.0-11.0) Red Blood Count 3.83 x10^6/uL (4.30-5.70) L Hemoglobin 8.4 g/dL (13.0-17.5) L Hematocrit 27.5 % (39.0-53.0) L Mean Corpuscular Volume 72 fL (79-100) L Mean Corpuscular Hemoglobin 22 pg (25-35) L Mean Corpuscular Hemoglobin Concent 31 g/dL (31-37) Red Cell Distribution Width 20.1 % (11.5-14.5) H Platelet Count 220 x10^3/uL (140-400) Neutrophils (%) (Auto) 87 % (31-73) H Lymphocytes (%) (Auto) 8 % (24-48) L Monocytes (%) (Auto) 4 % (0-9) Eosinophils (%) (Auto) 0 % (0-3) Basophils (%) (Auto) 1 % (0-3) Neutrophils # (Auto) 6.3 x10^3/uL (1.8-7.7) Lymphocytes # (Auto) 0.6 x10^3/uL (1.0-4.8) L Monocytes # (Auto) 0.3 x10^3/uL (0.0-1.1) Eosinophils # (Auto) 0.0 x10^3/uL (0.0-0.7) Basophils # (Auto) 0.0 x10^3/uL (0.0-0.2) Platelet Estimate Pending Sodium Level 138 mmol/L (136-145) Potassium Level 4.2 mmol/L (3.5-5.1) Chloride Level 100 mmol/L (98-107) Carbon Dioxide Level 30 mmol/L (21-32) Anion Gap 8 (6-14) Blood Urea Nitrogen 20 mg/dL (8-26) Creatinine 1.2 mg/dL (0.7-1.3) Estimated GFR (Cockcroft-Gault) 75.0 BUN/Creatinine Ratio 17 (6-20) Glucose Level 118 mg/dL (70-99) H Calcium Level 9.9 mg/dL (8.5-10.1) Total Bilirubin 0.7 mg/dL (0.2-1.0) Aspartate Amino Transferase (AST) 19 U/L (15-37) Alanine Aminotransferase (ALT) 22 U/L (16-63) Alkaline Phosphatase 102 U/L (46-116) Total Protein 6.9 g/dL (6.4-8.2) Albumin 3.7 g/dL (3.4-5.0) Albumin/Globulin Ratio 1.2 (1.0-1.7) Laboratory Tests 11/04/18 17:40 Laboratory Tests 11/04/18 17:40 EKG EKG EKG reviewed, heart rate 99, no evidence of acute ST elevation appreciated, nonspecific changes appreciated[] Interpretation Time: EKG interpretation 1847 Radiology/Procedures Radiology/Procedures [facility] [address] [place], [place] [id number] IMAGING REPORT Signed PATIENT: KAYLA JOENS ACCOUNT: [id number] : 1960 LOCATION: ER AGE: 58 SEX: M EXAM STATUS: PRE ER ORD. PHYSICIAN: SWATHI RAM MD REASON: Dyspnea, soa. US@7:25 PROCEDURE: PORTABLE CHEST 1V Indication:Dyspnea. TECHNIQUE:Portable AP chest X-ray COMPARISON: 10/29/2018. FINDINGS: Heart is normal in size. Severe emphysema in the left lung. Right lung within normal limits. There is mild mediastinal shift to the right side. No pneumothorax or large pleural effusion. Visualized bony thorax within normal limits. IMPRESSION: Severe left lung emphysema or bullous disease. Stable findings. Electronically signed by: Luke Bain DO (11/04/2018 7:31 PM) [facility] DICTATED and SIGNED BY: LUKE BAIN DO DATE: 11/04/181930 [] Course & Med Decision Making Course & Med Decision Making Pertinent Labs and Imaging studies reviewed. (See chart for details) []58-year-old male presents to the emergency department with complaints of shortness of breath. Patient's underlying history of chronic respiratory failure, 3 L, COPD. He is well states he has thrush and is currently on nystatin. He describes cough, white phlegm production around 5PM today.He denies any chest pain,patient denies nausea, vomiting, abdominal pain. Movements make his shortness of breath worse. Nothing makes it better. On initial evaluation, EMS states saturations in the 70s, he received 2 treatments prior to his arrival reportedly has saturations up to 100% however 93-94% in the emergency department. Patient received 2 treatments prior to arrival via EMS, his received one treatment here in the emergency department. Heart rate at rest is 1 teens when patient and when he goes to the bathroom up to 130s - 140s. Saturations actually improving however he is still pretty tachypneic on examination. Chest x-ray reviewed without evidence of acute consolidation, patient had severe bullae appreciated a left upper lobe. This is unchanged. Patient did receive Solu- Medrol 125 mg IM. Discussed admission with hospitalist. Todd Disclaimer Dragon Disclaimer This electronic medical record was generated, in whole or in part, using a voice recognition dictation system. Departure Departure Impression: Primary Impression: COPD with exacerbation Additional Impression: Acute and chronic respiratory failure Disposition: ADMITTED INPATIENT Admitting Physician: ALINE Condition: STABLE Referrals: UNKNOWN PCP NAME (PCP) Problem Qualifiers SWATHI RAM MD Nov 04, 2018 18:44
--- NOTE | 2018-11-04 19:34 | RAD ---
Indication:Dyspnea. TECHNIQUE:Portable AP chest X-ray COMPARISON: 10/29/2018. FINDINGS: Heart is normal in size. Severe emphysema in the left lung. Right lung within normal limits. There is mild mediastinal shift to the right side. No pneumothorax or large pleural effusion. Visualized bony thorax within normal limits. IMPRESSION: Severe left lung emphysema or bullous disease. Stable findings. Electronically signed by: Luke Yoo DO (11/04/2018 7:31 PM) [facility]
[2018-11-04] MEDS ORDERED: methylPREDNISolone SOD SUCC PF 125 MG/2 ML VIAL. IM ONE (19:45)
[2018-11-04 19:52] LABS: BASO % 1 % (0-3); EOS % 0 % (0-3); HEMATOCRIT 27.5 % (39.0-53.0); HEMOGLOBIN 8.4 g/dL (13.0-17.5); LYMPH # 0.6 x10^3/uL (1.0-4.8); LYMPH % 8 % (24-48); MEAN CORPUSCULAR HEMOGLOBIN 22 pg (25-35); MEAN CORPUSCULAR HGB CONC 31 g/dL (31-37); MEAN CORPUSCULAR VOLUME 72 fL (79-100); MONO # 0.3 x10^3/uL (0.0-1.1); MONO % 4 % (0-9); NEUT # 6.3 x10^3/uL (1.8-7.7); NEUT % 87 % (31-73); PLATELET COUNT 220 x10^3/uL (140-400); RED BLOOD COUNT 3.83 x10^6/uL (4.30-5.70); RED CELL DISTRIBUTION WIDTH 20.1 % (11.5-14.5); WHITE BLOOD COUNT 7.2 x10^3/uL (4.0-11.0)
[2018-11-04 19:58] LABS: CALCIUM 9.9 mg/dL (8.5-10.1); CREATININE 1.2 mg/dL (0.7-1.3); POTASSIUM 4.2 mmol/L (3.5-5.1)
[2018-11-04 20:03] LABS: ALBUMIN 3.7 g/dL (3.4-5.0); ALBUMIN/GLOBULIN RATIO 1.2 (1.0-1.7); TOTAL BILIRUBIN 0.7 mg/dL (0.2-1.0); TOTAL PROTEIN 6.9 g/dL (6.4-8.2)
[2018-11-04] MEDS ORDERED: ONDANSETRON PF 4 MG/2 ML VIAL. IV PRN (20:30)
[2018-11-04] MEDS ORDERED: ACETAMINOPHEN 325 MG TABLET. PO PRN ×2 (20:30→22:45)
[2018-11-04 20:36] LABS: % LYMPHS 2 % (24-48); % MONOS 1 % (0-10); % SEGS 97 % (35-66)
[2018-11-04 20:39] LABS: ANISOCYTOSIS MOD; HYPOCHROMIA MOD; MICROCYTOSIS MARKED; OVALOCYTES FEW; PLT ESTIMATE ADEQUATE (ADEQUATE); POLYCHROMASIA SLIGHT; SCHISTOCYTES FEW
[2018-11-04 21:03] VITALS: BP 133/71
--- NOTE | 2018-11-04 21:28 | PDOC1 ---
History and Physical Date of Admission Date of Admission DATE: 11/04/18 TIME: 21:28 History of Present Illness History of Present Illness 58-year-old male presents to the emergency department with complaints of shortness of breath. Patient's underlying history of chronic respiratory failure, 3 L, COPD. He is well states he has thrush and is currently on nystatin. He describes cough, white phlegm production around 5PM today.He d enies any chest pain,patient denies nausea, vomiting, abdominal pain. Movements make his shortness of breath worse. Nothing makes it better. On initial evaluation, EMS states saturations in the 70s, he received 2 treatments prior to his arrival reportedly has saturations up to 100% however 93-94% in the emergency department. Past Medical History Cardiovascular: CHF, HTN, Hyperlipidemia, Other Pulmonary: Asthma, COPD, Pneumonia, Other CENTRAL NERVOUS SYSTEM: Other GI: GERD Heme/Onc: No pertinent hx Hepatobiliary: No pertinent hx Psych: Anxiety Musculoskeletal: low back pain, Osteoarthritis Rheumatologic: No pertinent hx Infectious disease: No pertinent hx Renal/: Chronic renal insuff Endocrine: Diabetes Past Surgical History Past Surgical History: Hernia Repair Family History Family History: Heart Disease, Hypertension Social History ALCOHOL: none Drugs: None Current Problem List Problem List Problems Medical Problems: (1) Acute and chronic respiratory failure Status: Acute (2) Chronic respiratory failure Status: Chronic (3) COPD with exacerbation Status: Acute (4) Tachycardia Status: Acute Current Medications Current Medications Current Medications Albuterol/ Ipratropium (Duoneb) 3 ml 1X ONCE NEB Last administered on 11/04/18at 18:55; Start 11/04/18 at 18:45; Stop 11/04/18 at 18:46; Status DC Methylprednisolone Sodium Succinate (SOLU-Medrol 125MG VIAL) 125 mg 1X ONCE IV ; Start 11/04/18 at 18:45; Stop 11/04/18 at 19:45; Status DC Methylprednisolone Sodium Succinate (SOLU-Medrol 125MG VIAL) 125 mg 1X ONCE IM Last administered on 11/04/18at 19:54; Start 11/04/18 at 19:45; Stop 11/04/18 at 19:48; Status DC Levofloxacin/ Dextrose 150 ml @ 100 mls/hr 1X ONCE IV Last administered on 11/04/18at 20:46; Start 9/23/19 at 20:30; Stop 11/04/18 at 21:59 Ondansetron HCl (Zofran) 4 mg PRN Q8HRS PRN IV NAUSEA/VOMITING; Start 11/04/18 at 20:30; Stop 11/05/18 at 20:29 Acetaminophen (Tylenol) 650 mg PRN Q4HRS PRN PO FEVER; Start 11/04/18 at 20:30; Stop 11/05/18 at 20:29 Albuterol/ Ipratropium (Duoneb) 3 ml RTQID NEB ; Start 11/05/18 at 08:00; Stop 11/06/18 at 07:59 Active Scripts Active Miralax (Polyethylene Glycol 3350) 119 Gm Powder 17 Gm PO BID Prednisone (Prednisone) 10 Mg Tablet 10 Mg PO DAILY 5 Days Nystatin 100,000 Unit/1 Ml Oral.susp 5 Ml SWSW [id number] 5 Days Duoneb 0.5-3(2.5) Mg/3 Ml (Albuterol/Ipratropium) 3 Ml Ampul.neb 3 Ml NEB QID Tessalon Perle (Benzonatate) 100 Mg Capsule 1 Cap PO TID Montelukast Sodium Tablet (Montelukast Sodium) 10 Mg Tablet 10 Mg PO QHS Lidocaine PATCH (Lidocaine) 1 Each Adh..patch 1 Each TP DAILY 30 Days REMOVE AFTER 12 HOURS Ativan (Lorazepam) 1 Mg Tablet 1 Mg PO PRN BID PRN Humalog (Insulin Lispro) 100 Unit/1 Ml Insuln.pen 0 Units SQ TIDWMEALS 30 Days Aspirin Ec (Aspirin) 81 Mg Tablet.dr 81 Mg PO DAILYWBKFT 30 Days Cyclobenzaprine Hcl 5 Mg Tablet 5 Mg PO PRN TID PRN Tramadol Hcl 50 Mg Tablet 50 Mg PO PRN Q6HRS PRN 6 Days Guaifenesin 100 Mg/5 Ml Liquid 200 Mg PO PRN Q4HRS PRN 30 Days Tylenol (Acetaminophen) 325 Mg Tablet 650 Mg PO PRN Q4HRS PRN 10 Days Ventolin Hfa Inhaler (Albuterol Sulfate) 18 Gm Hfa.aer.ad 2 Puff INH Q4HRS Reglan (Metoclopramide Hcl) 10 Mg Tablet 0.5 Tab PO QID 30 Days Reported Xarelto (Rivaroxaban) 20 Mg Tablet 20 Mg PO DAILY Metformin Hcl 500 Mg Tablet 500 Mg PO DAILYWBKFT Pulmicort (Budesonide) 0.25 Mg/2 Ml Ampul.neb 1 Vial NEB BID Albuterol Sulfate Neb Soln (Albuterol Sulfate) 2.5 Mg/3 Ml Vial.neb 1 Vial NEB PRN Q2HR PRN Furosemide 40 Mg Tablet 1 Tab PO DAILY Vitamin D3 (Cholecalciferol (Vitamin D3)) 5,000 Unit Tablet 5,000 Unit PO DAILY Potassium Chloride 20 Meq Tablet.er 20 Meq PO DAILY Protonix (Pantoprazole Sodium) 20 Mg Tablet.dr 1 Tab PO DAILY Atorvastatin Calcium 10 Mg Tablet 10 Mg PO HS Symbicort 160-4.5 Mcg Inhaler (Budesonide/Formoterol Fumarate) 10.2 Gm Hfa.aer.ad 2 Puff IH BID Allergies Allergies: Coded Allergies: No Known Medication Allergies (Verified Allergy, Unknown, 08/26/18) Vitals Vitals Vital Signs Date Time Temp Pulse Resp B/P (MAP) Pulse Ox O2 Delivery O2 Flow Rate FiO2 11/04/18 20:00 108 22 142/63 (89) 98 Nasal Cannula 3.0 11/04/18 18:30 99.4 99.4 Labs Labs Laboratory Tests Test 11/04/18 17:40 White Blood Count 7.2 x10^3/uL (4.0-11.0) Red Blood Count 3.83 x10^6/uL (4.30-5.70) Hemoglobin 8.4 g/dL (13.0-17.5) Hematocrit 27.5 % (39.0-53.0) Mean Corpuscular Volume 72 fL (79-100) Mean Corpuscular Hemoglobin 22 pg (25-35) Mean Corpuscular Hemoglobin Concent 31 g/dL (31-37) Red Cell Distribution Width 20.1 % (11.5-14.5) Platelet Count 220 x10^3/uL (140-400) Neutrophils (%) (Auto) 87 % (31-73) Lymphocytes (%) (Auto) 8 % (24-48) Monocytes (%) (Auto) 4 % (0-9) Eosinophils (%) (Auto) 0 % (0-3) Basophils (%) (Auto) 1 % (0-3) Neutrophils # (Auto) 6.3 x10^3/uL (1.8-7.7) Lymphocytes # (Auto) 0.6 x10^3/uL (1.0-4.8) Monocytes # (Auto) 0.3 x10^3/uL (0.0-1.1) Eosinophils # (Auto) 0.0 x10^3/uL (0.0-0.7) Basophils # (Auto) 0.0 x10^3/uL (0.0-0.2) Segmented Neutrophils % 97 % (35-66) Lymphocytes % 2 % (24-48) Monocytes % 1 % (0-10) Platelet Estimate Adequate (ADEQUATE) Polychromasia Slight Hypochromasia Mod Anisocytosis Mod Microcytosis Marked Ovalocytes Few Schistocytes Few Sodium Level 138 mmol/L (136-145) Potassium Level 4.2 mmol/L (3.5-5.1) Chloride Level 100 mmol/L (98-107) Carbon Dioxide Level 30 mmol/L (21-32) Anion Gap 8 (6-14) Blood Urea Nitrogen 20 mg/dL (8-26) Creatinine 1.2 mg/dL (0.7-1.3) Estimated GFR (Cockcroft-Gault) 75.0 BUN/Creatinine Ratio 17 (6-20) Glucose Level 118 mg/dL (70-99) Calcium Level 9.9 mg/dL (8.5-10.1) Total Bilirubin 0.7 mg/dL (0.2-1.0) Aspartate Amino Transf (AST/SGOT) 19 U/L (15-37) Alanine Aminotransferase (ALT/SGPT) 22 U/L (16-63) Alkaline Phosphatase 102 U/L (46-116) Total Protein 6.9 g/dL (6.4-8.2) Albumin 3.7 g/dL (3.4-5.0) Albumin/Globulin Ratio 1.2 (1.0-1.7) Laboratory Tests Test 11/04/18 17:40 White Blood Count 7.2 x10^3/uL (4.0-11.0) Red Blood Count 3.83 x10^6/uL (4.30-5.70) Hemoglobin 8.4 g/dL (13.0-17.5) Hematocrit 27.5 % (39.0-53.0) Mean Corpuscular Volume 72 fL (79-100) Mean Corpuscular Hemoglobin 22 pg (25-35) Mean Corpuscular Hemoglobin Concent 31 g/dL (31-37) Red Cell Distribution Width 20.1 % (11.5-14.5) Platelet Count 220 x10^3/uL (140-400) Neutrophils (%) (Auto) 87 % (31-73) Lymphocytes (%) (Auto) 8 % (24-48) Monocytes (%) (Auto) 4 % (0-9) Eosinophils (%) (Auto) 0 % (0-3) Basophils (%) (Auto) 1 % (0-3) Neutrophils # (Auto) 6.3 x10^3/uL (1.8-7.7) Lymphocytes # (Auto) 0.6 x10^3/uL (1.0-4.8) Monocytes # (Auto) 0.3 x10^3/uL (0.0-1.1) Eosinophils # (Auto) 0.0 x10^3/uL (0.0-0.7) Basophils # (Auto) 0.0 x10^3/uL (0.0-0.2) Segmented Neutrophils % 97 % (35-66) Lymphocytes % 2 % (24-48) Monocytes % 1 % (0-10) Platelet Estimate Adequate (ADEQUATE) Polychromasia Slight Hypochromasia Mod Anisocytosis Mod Microcytosis Marked Ovalocytes Few Schistocytes Few Sodium Level 138 mmol/L (136-145) Potassium Level 4.2 mmol/L (3.5-5.1) Chloride Level 100 mmol/L (98-107) Carbon Dioxide Level 30 mmol/L (21-32) Anion Gap 8 (6-14) Blood Urea Nitrogen 20 mg/dL (8-26) Creatinine 1.2 mg/dL (0.7-1.3) Estimated GFR (Cockcroft-Gault) 75.0 BUN/Creatinine Ratio 17 (6-20) Glucose Level 118 mg/dL (70-99) Calcium Level 9.9 mg/dL (8.5-10.1) Total Bilirubin 0.7 mg/dL (0.2-1.0) Aspartate Amino Transf (AST/SGOT) 19 U/L (15-37) Alanine Aminotransferase (ALT/SGPT) 22 U/L (16-63) Alkaline Phosphatase 102 U/L (46-116) Total Protein 6.9 g/dL (6.4-8.2) Albumin 3.7 g/dL (3.4-5.0) Albumin/Globulin Ratio 1.2 (1.0-1.7) VTE Prophylaxis Ordered VTE Prophylaxis Devices: Yes VTE Pharmacological Prophylaxi: Yes Assessment/Plan Assessment/Plan End Stage COPD with acute exacerbation - acute on chronic combined respiratory failure recent DC 3 days ago, will treat with broader abx PE diagnosis at [place]-started on Xarelto HTN - cont meds Depression NOS-second to medical illness 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
[2018-11-04] MEDS ORDERED: TIZA4TAB2 PO (21:40)
[2018-11-04] MEDS ORDERED: OXYC1TAB15 PO (21:40)
[2018-11-04] MEDS ORDERED: AZIT250T6 PO (21:40)
[2018-11-04] MEDS ORDERED: PIP/TAZO PER PHARMACY MC PRN (22:00)
[2018-11-04] MEDS ORDERED: VANCOMYCIN 1.5 GM in IV NORMAL SALINE 500ML BAG 500 ML IV ONE (22:00)
--- NOTE | 2018-11-04 22:03 | RAD ---
Indication: Constipation TECHNIQUE: 2 views of the abdomen and pelvis supine COMPARISON: 11/03/2018 FINDINGS: Clear lung bases. No abnormally dilated bowel loops. No significant colonic stool burden. Visualized bones are within normal limits. IMPRESSION: No significant colonic stool burden. No evidence of high-grade bowel obstruction. Electronically signed by: Luke Yoo DO (11/04/2018 10:00 PM) [facility]
[2018-11-04] MEDS ORDERED: tiZANidine 4 MG TABLET. PO PRN (22:45)
[2018-11-04 22:57] VITALS: BP 135/76
[2018-11-04] MEDS: IPRATRPIUM/ALBUTEROL 0.5/2.5MG 3 ML NEBU. NEB SCH (23:03)
[2018-11-04] MEDS: LORazepam 1 MG TABLET PO PRN (23:14)
[2018-11-04] MEDS: traMADol 50 MG TABLET PO PRN (23:14)
[2018-11-04] MEDS: VANCOMYCIN PER PHARMACY MC PRN (23:15)
--- NOTE | 2018-11-04 23:17 | NUR ---
Pharmacy Vancomycin Dosing Note S:Consulted to monitor and dose vancomycin started 11/04/18. O:KAYLA JONES is a 58 year old M with COPD EXACERBATION . Height: 5 feet, 9 inches Weight: 63.890854 kg [place] Body Weight: 70.70 Adjusted Body Weight: 67.62 Dosing Weight: Actual Other Antibiotics: ZOSYN 3.375GM IV Q6H LABS: Last BUN: 20 Last Creatinine: 1.2 Creatinine Clearance: 59 mL/min Last WBC: 7.2 Last Procalcitonin: Tmax (past 24 hours): Microbiology: I/O: Drug Levels: Last level: on at Last dose given at Vancomycin Dosing: Loading Dose: 1500 mg x1 11/04/18 2200 Dosing Weight: Actual Target Trough: 15-20 A: Based on: Actual Wt and CrCl P: 1. 11/05/18 1000 Vancomycin 1000 mg IV q12h 2. Follow up Trough level on 11/06/18 at 0930 3. Pharmacy will continue to monitor, follow and adjust therapy as needed. LOIS BRITTON RPH, 11/04/18 2317 Signed: 11/04/18 at 2318 by LOIS BRITTON RPH PHA
[2018-11-04] MEDS: PIPERACILLIN/TAZOBACTAM 3.375 GM in IV NORMAL SALINE 50ML 50 ML IV SCH (23:46)
[2018-11-05 03:36] VITALS: BP 132/80
[2018-11-05 04:57] LABS: BASO % 0 % (0-3); EOS % 0 % (0-3); HEMATOCRIT 22.9 % (39.0-53.0); HEMOGLOBIN 7.2 g/dL (13.0-17.5); LYMPH # 0.2 x10^3/uL (1.0-4.8); LYMPH % 4 % (24-48); MEAN CORPUSCULAR HEMOGLOBIN 22 pg (25-35); MEAN CORPUSCULAR HGB CONC 32 g/dL (31-37); MEAN CORPUSCULAR VOLUME 71 fL (79-100); MONO # 0.1 x10^3/uL (0.0-1.1); MONO % 1 % (0-9); NEUT # 4.4 x10^3/uL (1.8-7.7); NEUT % 95 % (31-73); PLATELET COUNT 202 x10^3/uL (140-400); RED BLOOD COUNT 3.23 x10^6/uL (4.30-5.70); RED CELL DISTRIBUTION WIDTH 20.2 % (11.5-14.5); WHITE BLOOD COUNT 4.6 x10^3/uL (4.0-11.0)
[2018-11-05 05:28] LABS: ALBUMIN 3.3 g/dL (3.4-5.0); ALBUMIN/GLOBULIN RATIO 1.2 (1.0-1.7); CALCIUM 9.1 mg/dL (8.5-10.1); GFR 92.5; POTASSIUM 4.2 mmol/L (3.5-5.1); TOTAL BILIRUBIN 0.5 mg/dL (0.2-1.0); TOTAL PROTEIN 6.1 g/dL (6.4-8.2)
[2018-11-05] MEDS: IPRATRPIUM/ALBUTEROL 0.5/2.5MG 3 ML NEBU. NEB SCH ×4 (05:48→19:42)
[2018-11-05] MEDS: PIPERACILLIN/TAZOBACTAM 3.375 GM in IV NORMAL SALINE 50ML 50 ML IV SCH ×2 (06:24→12:24)
[2018-11-05 07:00] VITALS: BP 109/73
[2018-11-05] MEDS ORDERED: METOCLOPRAMIDE 10 MG TABLET. ONE (07:28)
[2018-11-05] MEDS: METOCLOPRAMIDE 10 MG TABLET. PO SCH ×4 (07:31→20:59)
[2018-11-05] MEDS: PANTOPRAZOLE 40 MG TABLET.DR. PO SCH (07:31)
[2018-11-05] MEDS ORDERED: IPRATRPIUM/ALBUTEROL 0.5/2.5MG 3 ML NEBU. NEB SCH (08:00)
--- NOTE | 2018-11-05 08:05 | EKG ---
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
[2018-11-05] MEDS: DOCUSATE SODIUM 100 MG CAPSULE. PO SCH (09:00)
[2018-11-05] MEDS: POLYETHYLENE GLYCOL 3350 17 GM PACKET. PO SCH ×3 (09:00→20:59)
[2018-11-05] MEDS ORDERED: predniSONE 10 MG TABLET PO SCH (09:00)
[2018-11-05] MEDS: ASPIRIN ENTERIC COATED 81 MG TABLET.DR. PO SCH (09:28)
[2018-11-05] MEDS: metFORMIN 500 MG TABLET PO SCH (09:29)
[2018-11-05] MEDS: AZITHROMYCIN 250 MG TABLET. PO SCH (09:29)
[2018-11-05] MEDS: methylPREDNISolone SOD SUCC PF 125 MG/2 ML VIAL. IV SCH ×2 (09:29→20:59)
[2018-11-05] MEDS: NYSTATIN 100,000 UNITS/ML 5 ML ORAL.SUSP. SWSW SCH ×4 (09:33→20:59)
[2018-11-05] MEDS ORDERED: VANCOMYCIN 1 GM in IV NORMAL SALINE 250ML 250 ML IV SCH (10:00)
--- NOTE | 2018-11-05 10:38 | CONS ---
DATE OF CONSULTATION: 11/05/2018 PULMONARY CONSULTATION ATTENDING PHYSICIAN: Dr. Tesha Wise. REASON FOR CONSULTATION: Dyspnea. HISTORY OF PRESENT ILLNESS: The patient is a 58-year-old male who has end-stage COPD with chronic hypoxic respiratory failure and has been hospitalized almost on a weekly basis. He was just discharged recently. He states he went to [employer] and the temperature inside the store was cold, as a result he became more short of air. He denies any fever or chills. No chest pains. He has a mild cough with white sputum production. No headaches, no nausea or vomiting, no diarrhea. No focal weakness. His saturations were in the 70s. He received 2 treatments and saturations went up to 93%-94% in the Emergency Department. He normally uses 3-4 liters of oxygen. His chest x-ray shows unchanged findings. He has extensive bullous lung disease with large bulla on the left lung and stable parenchymal scarring in the right lung. PAST MEDICAL HISTORY: Significant for history of end-stage renal disease, history of chronic hypoxic respiratory failure, hypertension, CHF, prior pneumonias, osteoarthritis, prior PE. PAST SURGICAL HISTORY: Hernia repair. FAMILY HISTORY: Heart disease and hypertension. SOCIAL HISTORY: No longer smokes cigarettes. Long history of tobacco use. REVIEW OF SYSTEMS: Twelve-point system obtained. Pertinent positives discussed in my history of present illness, otherwise noncontributory. All systems that were negative were reviewed as well. MEDICATIONS: All reviewed as listed in the MRAD. PHYSICAL EXAMINATION: VITAL SIGNS: Reviewed. Stable. Pulse ox 99% on 3 liters. NECK: Supple. LUNGS: With few rhonchi and occasional wheezes. CARDIOVASCULAR: Regular rate. ABDOMEN: Soft, nontender. EXTREMITIES: With no pitting edema. LABORATORY DATA: Reviewed. White cell count 4.6; hemoglobin 7.2, which was 8.4 on admission; and platelets are 202. BUN 21 and a creatinine of 1.0. Chest x-ray findings are discussed in my history of present illness. I have also reviewed his home medications and they include Xarelto. IMPRESSION: 1. Dyspnea in a patient with end-stage chronic obstructive pulmonary disease and chronic hypoxic respiratory failure. Now comes in with exacerbation of chronic obstructive pulmonary disease triggered by cold temperature when he visited [employer]. 2. No signs of acute infection. 3. Stable, unchanged chest x-ray with extensive large bullous lung disease on the left side. 4. History of pulmonary embolism, which subsequently resolved on followup scans. Currently, on Xarelto. He is anemic. RECOMMENDATIONS: 1. 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 Most of his readmissions are related to social issues. I would recommend that the patient is not capable of living independently at home and should be at the [facility] vice [facility] client services to help regarding that. 2. In the meantime, continue present bronchodilators. 3. Continue steroids. 4. I do not see a need for antibiotics. It can be deescalated or discontinued. 5. Continue Xarelto, but monitor hemoglobin closely. VIN MEAD MD DR: ALTAGRACIA/efrain JOB#: [id number] / [id number]
[2018-11-05 10:50] VITALS: BP 118/71
--- NOTE | 2018-11-05 11:37 | PDOC ---
PROGRESS NOTES Chief Complaint Chief Complaint sob better today. 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 Constipation - cont meds Back pain - T9 fracture previously, this is improved Right conjunctivitis - erythomycin QID Thrush - nystastin swish and swallow Vitals Vitals Vital Signs Date Time Temp Pulse Resp B/P (MAP) Pulse Ox O2 Delivery O2 Flow Rate FiO2 11/05/18 11:25 Nasal Cannula 3.0 11/05/18 10:50 98.2 109 18 118/71 (87) 95 98.2 Physical Exam Lungs: Clear, Other Labs LABS Laboratory Tests Test 11/04/18 17:40 11/05/18 03:45 11/05/18 06:59 11/05/18 11:25 White Blood Count 7.2 x10^3/uL (4.0-11.0) 4.6 x10^3/uL (4.0-11.0) Red Blood Count 3.83 x10^6/uL (4.30-5.70) 3.23 x10^6/uL (4.30-5.70) Hemoglobin 8.4 g/dL (13.0-17.5) 7.2 g/dL (13.0-17.5) Hematocrit 27.5 % (39.0-53.0) 22.9 % (39.0-53.0) Mean Corpuscular Volume 72 fL (79-100) 71 fL (79-100) Mean Corpuscular Hemoglobin 22 pg (25-35) 22 pg (25-35) Mean Corpuscular Hemoglobin Concent 31 g/dL (31-37) 32 g/dL (31-37) Red Cell Distribution Width 20.1 % (11.5-14.5) 20.2 % (11.5-14.5) Platelet Count 220 x10^3/uL (140-400) 202 x10^3/uL (140-400) Neutrophils (%) (Auto) 87 % (31-73) 95 % (31-73) Lymphocytes (%) (Auto) 8 % (24-48) 4 % (24-48) Monocytes (%) (Auto) 4 % (0-9) 1 % (0-9) Eosinophils (%) (Auto) 0 % (0-3) 0 % (0-3) Basophils (%) (Auto) 1 % (0-3) 0 % (0-3) Neutrophils # (Auto) 6.3 x10^3/uL (1.8-7.7) 4.4 x10^3/uL (1.8-7.7) Lymphocytes # (Auto) 0.6 x10^3/uL (1.0-4.8) 0.2 x10^3/uL (1.0-4.8) Monocytes # (Auto) 0.3 x10^3/uL (0.0-1.1) 0.1 x10^3/uL (0.0-1.1) Eosinophils # (Auto) 0.0 x10^3/uL (0.0-0.7) 0.0 x10^3/uL (0.0-0.7) Basophils # (Auto) 0.0 x10^3/uL (0.0-0.2) 0.0 x10^3/uL (0.0-0.2) Segmented Neutrophils % 97 % (35-66) Lymphocytes % 2 % (24-48) Monocytes % 1 % (0-10) Platelet Estimate Adequate (ADEQUATE) Polychromasia Slight Hypochromasia Mod Anisocytosis Mod Microcytosis Marked Ovalocytes Few Schistocytes Few Sodium Level 138 mmol/L (136-145) 139 mmol/L (136-145) Potassium Level 4.2 mmol/L (3.5-5.1) 4.2 mmol/L (3.5-5.1) Chloride Level 100 mmol/L (98-107) 100 mmol/L (98-107) Carbon Dioxide Level 30 mmol/L (21-32) 32 mmol/L (21-32) Anion Gap 8 (6-14) 7 (6-14) Blood Urea Nitrogen 20 mg/dL (8-26) 21 mg/dL (8-26) Creatinine 1.2 mg/dL (0.7-1.3) 1.0 mg/dL (0.7-1.3) Estimated GFR (Cockcroft-Gault) 75.0 92.5 BUN/Creatinine Ratio 17 (6-20) 21 (6-20) Glucose Level 118 mg/dL (70-99) 130 mg/dL (70-99) Calcium Level 9.9 mg/dL (8.5-10.1) 9.1 mg/dL (8.5-10.1) Total Bilirubin 0.7 mg/dL (0.2-1.0) 0.5 mg/dL (0.2-1.0) Aspartate Amino Transf (AST/SGOT) 19 U/L (15-37) 17 U/L (15-37) Alanine Aminotransferase (ALT/SGPT) 22 U/L (16-63) 20 U/L (16-63) Alkaline Phosphatase 102 U/L (46-116) 86 U/L (46-116) Total Protein 6.9 g/dL (6.4-8.2) 6.1 g/dL (6.4-8.2) Albumin 3.7 g/dL (3.4-5.0) 3.3 g/dL (3.4-5.0) Albumin/Globulin Ratio 1.2 (1.0-1.7) 1.2 (1.0-1.7) Glucose (Fingerstick) 136 mg/dL (70-99) 197 mg/dL (70-99) Assessment and Plan Assessmemt and Plan Problems Medical Problems: (1) Acute and chronic respiratory failure Status: Acute (2) Chronic respiratory failure Status: Chronic (3) COPD with exacerbation Status: Acute (4) Depression Status: Chronic (5) Hypertension Status: Chronic (6) Right conjunctivitis Status: Acute (7) Tachycardia Status: Acute Comment Review of Relevant I have reviewed the following items franki (where applicable) has been applied. Labs Laboratory Tests Test 11/04/18 17:40 11/05/18 03:45 11/05/18 06:59 11/05/18 11:25 White Blood Count 7.2 x10^3/uL (4.0-11.0) 4.6 x10^3/uL (4.0-11.0) Red Blood Count 3.83 x10^6/uL (4.30-5.70) 3.23 x10^6/uL (4.30-5.70) Hemoglobin 8.4 g/dL (13.0-17.5) 7.2 g/dL (13.0-17.5) Hematocrit 27.5 % (39.0-53.0) 22.9 % (39.0-53.0) Mean Corpuscular Volume 72 fL (79-100) 71 fL (79-100) Mean Corpuscular Hemoglobin 22 pg (25-35) 22 pg (25-35) Mean Corpuscular Hemoglobin Concent 31 g/dL (31-37) 32 g/dL (31-37) Red Cell Distribution Width 20.1 % (11.5-14.5) 20.2 % (11.5-14.5) Platelet Count 220 x10^3/uL (140-400) 202 x10^3/uL (140-400) Neutrophils (%) (Auto) 87 % (31-73) 95 % (31-73) Lymphocytes (%) (Auto) 8 % (24-48) 4 % (24-48) Monocytes (%) (Auto) 4 % (0-9) 1 % (0-9) Eosinophils (%) (Auto) 0 % (0-3) 0 % (0-3) Basophils (%) (Auto) 1 % (0-3) 0 % (0-3) Neutrophils # (Auto) 6.3 x10^3/uL (1.8-7.7) 4.4 x10^3/uL (1.8-7.7) Lymphocytes # (Auto) 0.6 x10^3/uL (1.0-4.8) 0.2 x10^3/uL (1.0-4.8) Monocytes # (Auto) 0.3 x10^3/uL (0.0-1.1) 0.1 x10^3/uL (0.0-1.1) Eosinophils # (Auto) 0.0 x10^3/uL (0.0-0.7) 0.0 x10^3/uL (0.0-0.7) Basophils # (Auto) 0.0 x10^3/uL (0.0-0.2) 0.0 x10^3/uL (0.0-0.2) Segmented Neutrophils % 97 % (35-66) Lymphocytes % 2 % (24-48) Monocytes % 1 % (0-10) Platelet Estimate Adequate (ADEQUATE) Polychromasia Slight Hypochromasia Mod Anisocytosis Mod Microcytosis Marked Ovalocytes Few Schistocytes Few Sodium Level 138 mmol/L (136-145) 139 mmol/L (136-145) Potassium Level 4.2 mmol/L (3.5-5.1) 4.2 mmol/L (3.5-5.1) Chloride Level 100 mmol/L (98-107) 100 mmol/L (98-107) Carbon Dioxide Level 30 mmol/L (21-32) 32 mmol/L (21-32) Anion Gap 8 (6-14) 7 (6-14) Blood Urea Nitrogen 20 mg/dL (8-26) 21 mg/dL (8-26) Creatinine 1.2 mg/dL (0.7-1.3) 1.0 mg/dL (0.7-1.3) Estimated GFR (Cockcroft-Gault) 75.0 92.5 BUN/Creatinine Ratio 17 (6-20) 21 (6-20) Glucose Level 118 mg/dL (70-99) 130 mg/dL (70-99) Calcium Level 9.9 mg/dL (8.5-10.1) 9.1 mg/dL (8.5-10.1) Total Bilirubin 0.7 mg/dL (0.2-1.0) 0.5 mg/dL (0.2-1.0) Aspartate Amino Transf (AST/SGOT) 19 U/L (15-37) 17 U/L (15-37) Alanine Aminotransferase (ALT/SGPT) 22 U/L (16-63) 20 U/L (16-63) Alkaline Phosphatase 102 U/L (46-116) 86 U/L (46-116) Total Protein 6.9 g/dL (6.4-8.2) 6.1 g/dL (6.4-8.2) Albumin 3.7 g/dL (3.4-5.0) 3.3 g/dL (3.4-5.0) Albumin/Globulin Ratio 1.2 (1.0-1.7) 1.2 (1.0-1.7) Glucose (Fingerstick) 136 mg/dL (70-99) 197 mg/dL (70-99) Laboratory Tests Test 11/04/18 17:40 11/05/18 03:45 11/05/18 06:59 11/05/18 11:25 White Blood Count 7.2 x10^3/uL (4.0-11.0) 4.6 x10^3/uL (4.0-11.0) Red Blood Count 3.83 x10^6/uL (4.30-5.70) 3.23 x10^6/uL (4.30-5.70) Hemoglobin 8.4 g/dL (13.0-17.5) 7.2 g/dL (13.0-17.5) Hematocrit 27.5 % (39.0-53.0) 22.9 % (39.0-53.0) Mean Corpuscular Volume 72 fL (79-100) 71 fL (79-100) Mean Corpuscular Hemoglobin 22 pg (25-35) 22 pg (25-35) Mean Corpuscular Hemoglobin Concent 31 g/dL (31-37) 32 g/dL (31-37) Red Cell Distribution Width 20.1 % (11.5-14.5) 20.2 % (11.5-14.5) Platelet Count 220 x10^3/uL (140-400) 202 x10^3/uL (140-400) Neutrophils (%) (Auto) 87 % (31-73) 95 % (31-73) Lymphocytes (%) (Auto) 8 % (24-48) 4 % (24-48) Monocytes (%) (Auto) 4 % (0-9) 1 % (0-9) Eosinophils (%) (Auto) 0 % (0-3) 0 % (0-3) Basophils (%) (Auto) 1 % (0-3) 0 % (0-3) Neutrophils # (Auto) 6.3 x10^3/uL (1.8-7.7) 4.4 x10^3/uL (1.8-7.7) Lymphocytes # (Auto) 0.6 x10^3/uL (1.0-4.8) 0.2 x10^3/uL (1.0-4.8) Monocytes # (Auto) 0.3 x10^3/uL (0.0-1.1) 0.1 x10^3/uL (0.0-1.1) Eosinophils # (Auto) 0.0 x10^3/uL (0.0-0.7) 0.0 x10^3/uL (0.0-0.7) Basophils # (Auto) 0.0 x10^3/uL (0.0-0.2) 0.0 x10^3/uL (0.0-0.2) Segmented Neutrophils % 97 % (35-66) Lymphocytes % 2 % (24-48) Monocytes % 1 % (0-10) Platelet Estimate Adequate (ADEQUATE) Polychromasia Slight Hypochromasia Mod Anisocytosis Mod Microcytosis Marked Ovalocytes Few Schistocytes Few Sodium Level 138 mmol/L (136-145) 139 mmol/L (136-145) Potassium Level 4.2 mmol/L (3.5-5.1) 4.2 mmol/L (3.5-5.1) Chloride Level 100 mmol/L (98-107) 100 mmol/L (98-107) Carbon Dioxide Level 30 mmol/L (21-32) 32 mmol/L (21-32) Anion Gap 8 (6-14) 7 (6-14) Blood Urea Nitrogen 20 mg/dL (8-26) 21 mg/dL (8-26) Creatinine 1.2 mg/dL (0.7-1.3) 1.0 mg/dL (0.7-1.3) Estimated GFR (Cockcroft-Gault) 75.0 92.5 BUN/Creatinine Ratio 17 (6-20) 21 (6-20) Glucose Level 118 mg/dL (70-99) 130 mg/dL (70-99) Calcium Level 9.9 mg/dL (8.5-10.1) 9.1 mg/dL (8.5-10.1) Total Bilirubin 0.7 mg/dL (0.2-1.0) 0.5 mg/dL (0.2-1.0) Aspartate Amino Transf (AST/SGOT) 19 U/L (15-37) 17 U/L (15-37) Alanine Aminotransferase (ALT/SGPT) 22 U/L (16-63) 20 U/L (16-63) Alkaline Phosphatase 102 U/L (46-116) 86 U/L (46-116) Total Protein 6.9 g/dL (6.4-8.2) 6.1 g/dL (6.4-8.2) Albumin 3.7 g/dL (3.4-5.0) 3.3 g/dL (3.4-5.0) Albumin/Globulin Ratio 1.2 (1.0-1.7) 1.2 (1.0-1.7) Glucose (Fingerstick) 136 mg/dL (70-99) 197 mg/dL (70-99) Medications Current Medications Albuterol/ Ipratropium (Duoneb) 3 ml 1X ONCE NEB Last administered on 11/04/18at 18:55; Start 11/04/18 at 18:45; Stop 11/04/18 at 18:46; Status DC Methylprednisolone Sodium Succinate (SOLU-Medrol 125MG VIAL) 125 mg 1X ONCE IV ; Start 11/04/18 at 18:45; Stop 11/04/18 at 19:45; Status DC Methylprednisolone Sodium Succinate (SOLU-Medrol 125MG VIAL) 125 mg 1X ONCE IM Last administered on 11/04/18at 19:54; Start 11/04/18 at 19:45; Stop 11/04/18 at 19:48; Status DC Levofloxacin/ Dextrose 150 ml @ 100 mls/hr 1X ONCE IV Last administered on 11/04/18at 20:46; Start 11/04/18 at 20:30; Stop 11/04/18 at 21:59; Status DC Ondansetron HCl (Zofran) 4 mg PRN Q8HRS PRN IV NAUSEA/VOMITING; Start 11/04/18 at 20:30; Stop 11/05/18 at 20:29 Acetaminophen (Tylenol) 650 mg PRN Q4HRS PRN PO FEVER; Start 11/04/18 at 20:30; Stop 11/05/18 at 20:29; Status Cancel Albuterol/ Ipratropium (Duoneb) 3 ml RTQID NEB ; Start 11/05/18 at 08:00; Stop 11/04/18 at 21:33; Status DC Methylprednisolone Sodium Succinate (SOLU-Medrol 125MG VIAL) [address] administered on 11/05/18 09:33; Start 11/05/18 at 09:00 Vancomycin HCl (Vanco Per Pharmacy) 1 each PRN DAILY PRN MC SEE COMMENTS Last administered on 11/04/18at 23:15; Start 11/04/18 at 21:30 Piperacillin Sod/ Tazobactam Sod (Zosyn Per Pharmacy) 1 each PRN DAILY PRN MC SEE COMMENTS; Start 11/04/18 at 22:00 Polyethylene Glycol (miraLAX PACKET) 17 gm DAILY PO ; Start 11/05/18 at 09:00 Docusate Sodium (Colace) 100 mg DAILY PO ; Start 11/05/18 at 09:00 Albuterol/ Ipratropium (Duoneb) 3 ml Q4HRS W/A NEB Last administered on 11/05/18at 11:25; Start 11/04/18 at 22:00; Stop 11/05/18 at 21:59 Albuterol Sulfate (Ventolin Neb Soln) 2.5 mg PRN QID PRN NEB dyspnea; Start 11/04/18 at 21:45 Vancomycin HCl 1.5 gm/Sodium Chloride 500 ml @ 250 mls/hr 1X ONCE IV Last administered on 11/04/18at 23:09; Start 11/04/18 at 22:00; Stop 11/04/18 at 23:59; Status DC Piperacillin Sod/ Tazobactam Sod 3.375 gm/Sodium Chloride 50 ml @ 100 mls/hr Q6HRS IV Last administered on 11/05/18at 06:24; Start 11/05/18 at 00:00 Acetaminophen (Tylenol) 650 mg PRN Q4HRS PRN PO TEMP OVER 100.4F OR MILD PAIN; Start 11/04/18 at 22:45 Aspirin (Ecotrin) 81 mg DAILYWBKFT PO Last administered on 11/05/18at 09:33; Start 11/05/18 at 08:00 Lorazepam (Ativan) 1 mg PRN BID PRN PO ANXIETY / AGITATION Last administered on 11/04/18at 23:14; Start 11/04/18 at 22:45 Metformin HCl (Glucophage) 500 mg DAILYWBKFT PO Last administered on 11/05/18at 09:33; Start 11/05/18 at 08:00 Metoclopramide HCl (Reglan) 5 mg QID PO Last administered on 11/05/18at 07:31; Start 11/05/18 at 09:00 Montelukast Sodium (Singulair) 10 mg QHS PO ; Start 11/05/18 at 21:00 Oxycodone/ Acetaminophen (Percocet 5/325) 1 tab PRN Q6HRS PRN PO PAIN; Start 11/04/18 at 22:45 Polyethylene Glycol (miraLAX PACKET) 17 gm BID PO ; Start 11/05/18 at 09:00 Prednisone (Prednisone) 10 mg DAILY PO ; Start 11/05/18 at 09:00; Status UNV Tizanidine HCl (Zanaflex) 4 mg PRN TID PRN PO MUSCLE SPASMS Last administered on 11/05/18 09:33; Start 11/04/18 at 22:45 Azithromycin (Zithromax) 250 mg DAILY PO Last administered on 11/05/18at 09:33; Start 11/05/18 at 09:00 Nystatin (Nystatin Oral Susp) 5 ml [id number] Last administered on 11/05/18at 09:34; Start 11/05/18 at 09:00 Tramadol HCl (Ultram) 50 mg PRN Q6HRS PRN PO PAIN Last administered on 11/04/18at 23:14; Start 11/04/18 at 23:00 Pantoprazole Sodium (Protonix) 20 mg DAILYAC PO Last administered on 11/05/18at 07:31; Start 11/05/18 at 07:30 Vancomycin HCl 1 gm/Sodium Chloride 250 ml @ 250 mls/hr Q12H IV Last administered on 11/05/18 09:33; Start 11/05/18 at 10:00 Vancomycin HCl (Vancomycin Trough Level) 1 each 1X ONCE MC ; Start 11/06/18 at 09:30; Stop 11/06/18 at 09:31 Metoclopramide HCl (Reglan) 10 mg STK-MED ONCE .ROUTE ; Start 11/05/18 at 07:28; Stop 11/05/18 at 07:28; Status DC Active Scripts Active Miralax (Polyethylene Glycol 3350) 119 Gm Powder 17 Gm PO BID Prednisone (Prednisone) 10 Mg Tablet 10 Mg PO DAILY 5 Days Nystatin 100,000 Unit/1 Ml Oral.susp 5 Ml SWSW [id number] 5 Days Duoneb 0.5-3(2.5) Mg/3 Ml (Albuterol/Ipratropium) 3 Ml Ampul.neb 3 Ml NEB QID Tessalon Perle (Benzonatate) 100 Mg Capsule 1 Cap PO TID Montelukast Sodium Tablet (Montelukast Sodium) 10 Mg Tablet 10 Mg PO QHS Lidocaine PATCH (Lidocaine) 1 Each Adh..patch 1 Each TP DAILY 30 Days REMOVE AFTER 12 HOURS Ativan (Lorazepam) 1 Mg Tablet 1 Mg PO PRN BID PRN Humalog (Insulin Lispro) 100 Unit/1 Ml Insuln.pen 0 Units SQ TIDWMEALS 30 Days Aspirin Ec (Aspirin) 81 Mg Tablet.dr 81 Mg PO DAILYWBKFT 30 Days Cyclobenzaprine Hcl 5 Mg Tablet 5 Mg PO PRN TID PRN Tramadol Hcl 50 Mg Tablet 50 Mg PO PRN Q6HRS PRN 6 Days Guaifenesin 100 Mg/5 Ml Liquid 200 Mg PO PRN Q4HRS PRN 30 Days Tylenol (Acetaminophen) 325 Mg Tablet 650 Mg PO PRN Q4HRS PRN 10 Days Ventolin Hfa Inhaler (Albuterol Sulfate) 18 Gm Hfa.aer.ad 2 Puff INH Q4HRS Reglan (Metoclopramide Hcl) 10 Mg Tablet 0.5 Tab PO QID 30 Days Reported Tizanidine Hcl 4 Mg Tablet 4 Mg PO TID PRN Percocet 5-325 Mg Tablet (Oxycodone/Acetaminophen) 1 Each Tablet 1 Tab PO PRN Q6HRS PRN Azithromycin Tablet (Azithromycin) 250 Mg Tablet 250 Mg PO DAILY Xarelto (Rivaroxaban) 20 Mg Tablet 20 Mg PO DAILY Metformin Hcl 500 Mg Tablet 500 Mg PO DAILYWBKFT Pulmicort (Budesonide) 0.25 Mg/2 Ml Ampul.neb 1 Vial NEB BID Albuterol Sulfate Neb Soln (Albuterol Sulfate) 2.5 Mg/3 Ml Vial.neb 1 Vial NEB PRN Q2HR PRN Furosemide 40 Mg Tablet 1 Tab PO DAILY Vitamin D3 (Cholecalciferol (Vitamin D3)) 5,000 Unit Tablet 5,000 Unit PO DAILY Potassium Chloride 20 Meq Tablet.er 20 Meq PO DAILY Protonix (Pantoprazole Sodium) 20 Mg Tablet.dr 1 Tab PO DAILY Atorvastatin Calcium 10 Mg Tablet 10 Mg PO HS Symbicort 160-4.5 Mcg Inhaler (Budesonide/Formoterol Fumarate) 10.2 Gm Hfa.aer.ad 2 Puff IH BID Vitals/I & O Vital Sign - Last 24 Hours 11/04/18 11/04/18 11/04/18 11/04/18 18:30 18:55 19:00 20:00 Temp 99.4 99.4 Pulse 104 112 108 Resp 26 26 22 B/P (MAP) 135/70 (91) 130/79 (96) 142/63 (89) Pulse Ox 97 92 100 98 O2 Delivery Nasal Cannula Nasal Cannula Nasal Cannula Nasal Cannula O2 Flow Rate 3.0 3.5 3.0 3.0 11/04/18 11/04/18 11/04/18 11/04/18 21:03 22:30 22:57 23:04 Temp 98.7 99.0 98.7 99.0 Pulse 74 124 Resp 25 20 B/P (MAP) 133/71 (91) 135/76 (95) Pulse Ox 100 99 95 O2 Delivery Nasal Cannula Nasal Cannula Nasal Cannula O2 Flow Rate 3.0 3.0 3.0 3.0 11/04/18 11/05/18 11/05/18 11/05/18 23:14 01:12 03:36 05:48 Temp 98.3 98.3 Pulse 99 Resp 17 B/P (MAP) 132/80 (97) Pulse Ox 95 95 99 O2 Delivery BiPAP/CPAP Nasal Cannula O2 Flow Rate 3.0 3.0 3.0 3.0 11/05/18 11/05/18 11/05/18 07:00 10:50 11:25 Temp 98.3 98.2 98.3 98.2 Pulse 80 109 Resp 18 18 B/P (MAP) 109/73 (85) 118/71 (87) Pulse Ox 99 95 O2 Delivery Nasal Cannula Nasal Cannula Nasal Cannula O2 Flow Rate 3.0 3.0 3.0 Intake and Output 11/04/18 11/04/18 11/05/18 14:59 22:59 06:59 Intake Total 950 ml Balance 950 ml NICOLASA STOVALL MD Nov 05, 2018 11:37
[2018-11-05] MEDS: VANCOMYCIN PER PHARMACY MC PRN (14:14)
[2018-11-05 14:41] VITALS: BP 107/74
[2018-11-05] MEDS: traMADol 50 MG TABLET PO PRN ×2 (15:40→20:59)
[2018-11-05] MEDS: LACTOBACILLUS RHAMNOSUS GG 1 CAPSULE. PO SCH ×2 (15:41→20:59)
[2018-11-05 19:25] VITALS: BP 117/74
[2018-11-05] MEDS: LORazepam 1 MG TABLET PO PRN (20:59)
[2018-11-05] MEDS: MONTELUKAST SODIUM 10 MG TABLET. PO SCH (20:59)
[2018-11-05 23:46] VITALS: BP 130/81
[2018-11-06 03:40] VITALS: BP 128/73
[2018-11-06] MEDS: ALBUTEROL SULFATE 2.5 MG/3 ML NEBU. NEB PRN (03:50)
[2018-11-06 07:00] VITALS: BP 125/82
[2018-11-06] MEDS: IPRATRPIUM/ALBUTEROL 0.5/2.5MG 3 ML NEBU. NEB SCH ×4 (07:38→19:52)
[2018-11-06] MEDS: METOCLOPRAMIDE 10 MG TABLET. PO SCH ×4 (08:43→19:59)
[2018-11-06] MEDS: metFORMIN 500 MG TABLET PO SCH (08:43)
[2018-11-06] MEDS: PANTOPRAZOLE 40 MG TABLET.DR. PO SCH (08:43)
[2018-11-06] MEDS: DOCUSATE SODIUM 100 MG CAPSULE. PO SCH (08:43)
[2018-11-06] MEDS: NYSTATIN 100,000 UNITS/ML 5 ML ORAL.SUSP. SWSW SCH ×4 (08:43→19:59)
[2018-11-06] MEDS: AZITHROMYCIN 250 MG TABLET. PO SCH (08:43)
[2018-11-06] MEDS: ASPIRIN ENTERIC COATED 81 MG TABLET.DR. PO SCH (08:43)
[2018-11-06] MEDS: LACTOBACILLUS RHAMNOSUS GG 1 CAPSULE. PO SCH ×2 (08:43→19:59)
[2018-11-06] MEDS: POLYETHYLENE GLYCOL 3350 17 GM PACKET. PO SCH ×3 (08:44→19:59)
[2018-11-06] MEDS: methylPREDNISolone SOD SUCC PF 125 MG/2 ML VIAL. IV SCH ×2 (08:44→19:59)
[2018-11-06] MEDS: traMADol 50 MG TABLET PO PRN (09:26)
--- NOTE | 2018-11-06 10:18 | PDOC ---
PULMONARY PROGRESS NOTES Subjective dry cough, no increase soa Vitals Vital Signs Date Time Temp Pulse Resp B/P (MAP) Pulse Ox O2 Delivery O2 Flow Rate FiO2 11/06/18 09:26 100 Nasal Cannula 3.0 11/06/18 07:00 98.2 71 125/82 (96) 98.2 11/06/18 03:40 20 General: Alert, Oriented X4, No acute distress Lungs: Other (poor air entry) Cardiovascular: S1, S2 Abdomen: Soft, Non-tender Neuro Exam: Alert Extremities: Other (1+edema) Labs Laboratory Tests Test 11/04/18 17:40 11/05/18 03:45 11/05/18 06:59 11/05/18 11:25 White Blood Count 7.2 x10^3/uL (4.0-11.0) 4.6 x10^3/uL (4.0-11.0) Red Blood Count 3.83 x10^6/uL (4.30-5.70) 3.23 x10^6/uL (4.30-5.70) Hemoglobin 8.4 g/dL (13.0-17.5) 7.2 g/dL (13.0-17.5) Hematocrit 27.5 % (39.0-53.0) 22.9 % (39.0-53.0) Mean Corpuscular Volume 72 fL (79-100) 71 fL (79-100) Mean Corpuscular Hemoglobin 22 pg (25-35) 22 pg (25-35) Mean Corpuscular Hemoglobin Concent 31 g/dL (31-37) 32 g/dL (31-37) Red Cell Distribution Width 20.1 % (11.5-14.5) 20.2 % (11.5-14.5) Platelet Count 220 x10^3/uL (140-400) 202 x10^3/uL (140-400) Neutrophils (%) (Auto) 87 % (31-73) 95 % (31-73) Lymphocytes (%) (Auto) 8 % (24-48) 4 % (24-48) Monocytes (%) (Auto) 4 % (0-9) 1 % (0-9) Eosinophils (%) (Auto) 0 % (0-3) 0 % (0-3) Basophils (%) (Auto) 1 % (0-3) 0 % (0-3) Neutrophils # (Auto) 6.3 x10^3/uL (1.8-7.7) 4.4 x10^3/uL (1.8-7.7) Lymphocytes # (Auto) 0.6 x10^3/uL (1.0-4.8) 0.2 x10^3/uL (1.0-4.8) Monocytes # (Auto) 0.3 x10^3/uL (0.0-1.1) 0.1 x10^3/uL (0.0-1.1) Eosinophils # (Auto) 0.0 x10^3/uL (0.0-0.7) 0.0 x10^3/uL (0.0-0.7) Basophils # (Auto) 0.0 x10^3/uL (0.0-0.2) 0.0 x10^3/uL (0.0-0.2) Segmented Neutrophils % 97 % (35-66) Lymphocytes % 2 % (24-48) Monocytes % 1 % (0-10) Platelet Estimate Adequate (ADEQUATE) Polychromasia Slight Hypochromasia Mod Anisocytosis Mod Microcytosis Marked Ovalocytes Few Schistocytes Few Sodium Level 138 mmol/L (136-145) 139 mmol/L (136-145) Potassium Level 4.2 mmol/L (3.5-5.1) 4.2 mmol/L (3.5-5.1) Chloride Level 100 mmol/L (98-107) 100 mmol/L (98-107) Carbon Dioxide Level 30 mmol/L (21-32) 32 mmol/L (21-32) Anion Gap 8 (6-14) 7 (6-14) Blood Urea Nitrogen 20 mg/dL (8-26) 21 mg/dL (8-26) Creatinine 1.2 mg/dL (0.7-1.3) 1.0 mg/dL (0.7-1.3) Estimated GFR (Cockcroft-Gault) 75.0 92.5 BUN/Creatinine Ratio 17 (6-20) 21 (6-20) Glucose Level 118 mg/dL (70-99) 130 mg/dL (70-99) Calcium Level 9.9 mg/dL (8.5-10.1) 9.1 mg/dL (8.5-10.1) Total Bilirubin 0.7 mg/dL (0.2-1.0) 0.5 mg/dL (0.2-1.0) Aspartate Amino Transf (AST/SGOT) 19 U/L (15-37) 17 U/L (15-37) Alanine Aminotransferase (ALT/SGPT) 22 U/L (16-63) 20 U/L (16-63) Alkaline Phosphatase 102 U/L (46-116) 86 U/L (46-116) Total Protein 6.9 g/dL (6.4-8.2) 6.1 g/dL (6.4-8.2) Albumin 3.7 g/dL (3.4-5.0) 3.3 g/dL (3.4-5.0) Albumin/Globulin Ratio 1.2 (1.0-1.7) 1.2 (1.0-1.7) Glucose (Fingerstick) 136 mg/dL (70-99) 197 mg/dL (70-99) Test 11/05/18 16:25 11/05/18 20:51 11/06/18 08:40 Glucose (Fingerstick) 145 mg/dL (70-99) 135 mg/dL (70-99) 141 mg/dL (70-99) Laboratory Tests Test 11/05/18 11:25 11/05/18 16:25 11/05/18 20:51 11/06/18 08:40 Glucose (Fingerstick) 197 mg/dL (70-99) 145 mg/dL (70-99) 135 mg/dL (70-99) 141 mg/dL (70-99) Medications Active Scripts Medications Dose Route/Sig Max Daily Dose Days Date Category Dose Instructions Tizanidine Hcl 4 Mg Tablet 4 Mg PO TID PRN 11/04/18 Reported Percocet 5-325 Mg Tablet (Oxycodone/Acetaminophen) 1 Each Tablet 1 Tab PO PRN Q6HRS PRN 11/04/18 Reported Azithromycin Tablet (Azithromycin) 250 Mg Tablet 250 Mg PO DAILY 11/04/18 Reported Miralax (Polyethylene Glycol 3350) 119 Gm Powder 17 Gm PO BID 11/03/18 Rx Prednisone (Prednisone) 10 Mg Tablet 10 Mg PO DAILY 5 10/31/18 Rx Nystatin 100,000 Unit/1 Ml Oral.susp 5 Ml SWSW [id number] 5 10/31/18 Rx Duoneb 0.5-3(2.5) Mg/3 Ml (Albuterol/Ipratropium) 3 Ml Ampul.neb 3 Ml NEB QID 10/28/18 Rx Tessalon Perle (Benzonatate) 100 Mg Capsule 1 Cap PO TID 10/28/18 Rx Montelukast Sodium Tablet (Montelukast Sodium) 10 Mg Tablet 10 Mg PO QHS 10/28/18 Rx Lidocaine PATCH (Lidocaine) 1 Each Adh..patch 1 Each TP DAILY 30 09/11/18 Rx REMOVE AFTER 12 HOURS Ativan (Lorazepam) 1 Mg Tablet 1 Mg PO PRN BID PRN 09/11/18 Rx Xarelto (Rivaroxaban) 20 Mg Tablet 20 Mg PO DAILY 09/09/18 Reported Metformin Hcl 500 Mg Tablet 500 Mg PO DAILYWBKFT 09/09/18 Reported Humalog (Insulin Lispro) 100 Unit/1 Ml Insuln.pen 0 Units SQ TIDWMEALS 30 08/28/18 Rx Aspirin Ec (Aspirin) 81 Mg Tablet.dr 81 Mg PO DAILYWBKFT 30 08/28/18 Rx Pulmicort (Budesonide) 0.25 Mg/2 Ml Ampul.neb 1 Vial NEB BID 08/25/18 Reported Albuterol Sulfate Neb Soln (Albuterol Sulfate) 2.5 Mg/3 Ml Vial.neb 1 Vial NEB PRN Q2HR PRN 08/25/18 Reported Cyclobenzaprine Hcl 5 Mg Tablet 5 Mg PO PRN TID PRN 08/20/18 Rx Tramadol Hcl 50 Mg Tablet 50 Mg PO PRN Q6HRS PRN 6 07/12/18 Rx Furosemide 40 Mg Tablet 1 Tab PO DAILY 06/20/18 Reported Guaifenesin 100 Mg/5 Ml Liquid 200 Mg PO PRN Q4HRS PRN 30 05/30/18 Rx Tylenol (Acetaminophen) 325 Mg Tablet 650 Mg PO PRN Q4HRS PRN 10 05/30/18 Rx Ventolin Hfa Inhaler (Albuterol Sulfate) 18 Gm Hfa.aer.ad 2 Puff INH Q4HRS 05/10/18 Rx Vitamin D3 (Cholecalciferol (Vitamin D3)) 5,000 Unit Tablet 5,000 Unit PO DAILY 03/15/18 Reported Reglan (Metoclopramide Hcl) 10 Mg Tablet 0.5 Tab PO QID 30 02/14/18 Rx Potassium Chloride 20 Meq Tablet.er 20 Meq PO DAILY 01/13/18 Reported Protonix (Pantoprazole Sodium) 20 Mg Tablet.dr 1 Tab PO DAILY 11/18/17 Reported Atorvastatin Calcium 10 Mg Tablet 10 Mg PO HS 08/21/17 Reported Symbicort 160-4.5 Mcg Inhaler (Budesonide/Formoterol Fumarate) 10.2 Gm Hfa.aer.ad 2 Puff IH BID 09/21/15 Reported Impression . 1. Dyspnea in a patient with end-stage chronic obstructive pulmonary disease and chronic hypoxic respiratory failure. Now comes in with exacerbation of chronic obstructive pulmonary disease triggered by cold temperature when he visited [employer]. 2. No signs of acute infection. 3. Stable, unchanged chest x-ray with extensive large bullous lung disease on the left side. 4. History of pulmonary embolism, which subsequently resolved on followup scans. Currently, on Xarelto. He is anemic. Plan . 1. Discussed with the patient and manager social services. Most of his readmissions are related to social issues ans end stage COPD. I would recommend that the patient is not capable of living independently at home and should be at the care home. manager social services to help regarding that. 2. In the meantime, continue present bronchodilators. 3. Continue steroids. 4. I do not see a need for antibiotics. It can be deescalated or discontinued. 5. Continue Xarelto, but monitor hemoglobin closely. VIN MEAD MD Nov 06, 2018 10:17
[2018-11-06 10:50] VITALS: BP 118/64
--- NOTE | 2018-11-06 12:44 | NUR ---
SW following pt for dc planning. Chart reviewed and Pt is known to SWer from multiple visits. Pt states he was at [facility] getting his Rx filled when he became too cold due to AC. Pt currently ambulating hallways independently and does not appear to have skilled PT/OT needs. Discussed about placement and Pt states he has found two places in [place] but still does not have his clothes with him. Pt states his CM at [place] is assisting him with placement but he still has things to take care of prior going to [place]. SW challenged pt's goals, discussed he will need to ask his family to bring him clothes but he says he can't rely on them. Pt always claims he does not have his clothes with him and SWer had discussed to always have a bag with him when he comes to hospital. Pt currently declining placement and wants to return to his sister's place, States the AC is now fixed. Pt is at risk for readmission due to poor living situation and chronic medical condition. SWer provided supportive counseling and encouraged pt to consider LTC placement. SW will be available for dc needs.
[2018-11-06 15:53] VITALS: BP 103/51
--- NOTE | 2018-11-06 17:36 | PDOC ---
PROGRESS NOTES Chief Complaint Chief Complaint sob better today. 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 apprec pulm Vitals Vitals Vital Signs Date Time Temp Pulse Resp B/P (MAP) Pulse Ox O2 Delivery O2 Flow Rate FiO2 11/06/18 15:53 98.9 97 103/51 (68) 88 Nasal Cannula 3.0 98.9 11/06/18 03:40 20 Physical Exam Lungs: Other Labs LABS Laboratory Tests Test 11/05/18 20:51 11/06/18 08:40 11/06/18 12:41 11/06/18 17:03 Glucose (Fingerstick) 135 mg/dL (70-99) 141 mg/dL (70-99) 157 mg/dL (70-99) 159 mg/dL (70-99) Assessment and Plan Assessmemt and Plan Problems Medical Problems: (1) Acute and chronic respiratory failure Status: Acute (2) Chronic respiratory failure Status: Chronic (3) Chronic respiratory failure with hypoxia Status: Chronic (4) COPD with exacerbation Status: Acute (5) Depression Status: Chronic (6) Dyspnea Status: Acute (7) Hypertension Status: Chronic (8) Right conjunctivitis Status: Acute (9) Tachycardia Status: Acute Comment Review of Relevant I have reviewed the following items franki (where applicable) has been applied. Labs Laboratory Tests Test 11/04/18 17:40 11/05/18 03:45 11/05/18 06:59 11/05/18 11:25 White Blood Count 7.2 x10^3/uL (4.0-11.0) 4.6 x10^3/uL (4.0-11.0) Red Blood Count 3.83 x10^6/uL (4.30-5.70) 3.23 x10^6/uL (4.30-5.70) Hemoglobin 8.4 g/dL (13.0-17.5) 7.2 g/dL (13.0-17.5) Hematocrit 27.5 % (39.0-53.0) 22.9 % (39.0-53.0) Mean Corpuscular Volume 72 fL (79-100) 71 fL (79-100) Mean Corpuscular Hemoglobin 22 pg (25-35) 22 pg (25-35) Mean Corpuscular Hemoglobin Concent 31 g/dL (31-37) 32 g/dL (31-37) Red Cell Distribution Width 20.1 % (11.5-14.5) 20.2 % (11.5-14.5) Platelet Count 220 x10^3/uL (140-400) 202 x10^3/uL (140-400) Neutrophils (%) (Auto) 87 % (31-73) 95 % (31-73) Lymphocytes (%) (Auto) 8 % (24-48) 4 % (24-48) Monocytes (%) (Auto) 4 % (0-9) 1 % (0-9) Eosinophils (%) (Auto) 0 % (0-3) 0 % (0-3) Basophils (%) (Auto) 1 % (0-3) 0 % (0-3) Neutrophils # (Auto) 6.3 x10^3/uL (1.8-7.7) 4.4 x10^3/uL (1.8-7.7) Lymphocytes # (Auto) 0.6 x10^3/uL (1.0-4.8) 0.2 x10^3/uL (1.0-4.8) Monocytes # (Auto) 0.3 x10^3/uL (0.0-1.1) 0.1 x10^3/uL (0.0-1.1) Eosinophils # (Auto) 0.0 x10^3/uL (0.0-0.7) 0.0 x10^3/uL (0.0-0.7) Basophils # (Auto) 0.0 x10^3/uL (0.0-0.2) 0.0 x10^3/uL (0.0-0.2) Segmented Neutrophils % 97 % (35-66) Lymphocytes % 2 % (24-48) Monocytes % 1 % (0-10) Platelet Estimate Adequate (ADEQUATE) Polychromasia Slight Hypochromasia Mod Anisocytosis Mod Microcytosis Marked Ovalocytes Few Schistocytes Few Sodium Level 138 mmol/L (136-145) 139 mmol/L (136-145) Potassium Level 4.2 mmol/L (3.5-5.1) 4.2 mmol/L (3.5-5.1) Chloride Level 100 mmol/L (98-107) 100 mmol/L (98-107) Carbon Dioxide Level 30 mmol/L (21-32) 32 mmol/L (21-32) Anion Gap 8 (6-14) 7 (6-14) Blood Urea Nitrogen 20 mg/dL (8-26) 21 mg/dL (8-26) Creatinine 1.2 mg/dL (0.7-1.3) 1.0 mg/dL (0.7-1.3) Estimated GFR (Cockcroft-Gault) 75.0 92.5 BUN/Creatinine Ratio 17 (6-20) 21 (6-20) Glucose Level 118 mg/dL (70-99) 130 mg/dL (70-99) Calcium Level 9.9 mg/dL (8.5-10.1) 9.1 mg/dL (8.5-10.1) Total Bilirubin 0.7 mg/dL (0.2-1.0) 0.5 mg/dL (0.2-1.0) Aspartate Amino Transf (AST/SGOT) 19 U/L (15-37) 17 U/L (15-37) Alanine Aminotransferase (ALT/SGPT) 22 U/L (16-63) 20 U/L (16-63) Alkaline Phosphatase 102 U/L (46-116) 86 U/L (46-116) Total Protein 6.9 g/dL (6.4-8.2) 6.1 g/dL (6.4-8.2) Albumin 3.7 g/dL (3.4-5.0) 3.3 g/dL (3.4-5.0) Albumin/Globulin Ratio 1.2 (1.0-1.7) 1.2 (1.0-1.7) Glucose (Fingerstick) 136 mg/dL (70-99) 197 mg/dL (70-99) Test 9/24/19 16:25 11/05/18 20:51 11/06/18 08:40 11/06/18 12:41 Glucose (Fingerstick) 145 mg/dL (70-99) 135 mg/dL (70-99) 141 mg/dL (70-99) 157 mg/dL (70-99) Test 11/06/18 17:03 Glucose (Fingerstick) 159 mg/dL (70-99) Laboratory Tests Test 11/05/18 20:51 11/06/18 08:40 11/06/18 12:41 11/06/18 17:03 Glucose (Fingerstick) 135 mg/dL (70-99) 141 mg/dL (70-99) 157 mg/dL (70-99) 159 mg/dL (70-99) Medications Current Medications Albuterol/ Ipratropium (Duoneb) 3 ml 1X ONCE NEB Last administered on 11/04/18at 18:55; Start 11/04/18 at 18:45; Stop 11/04/18 at 18:46; Status DC Methylprednisolone Sodium Succinate (SOLU-Medrol 125MG VIAL) 125 mg 1X ONCE IV ; Start 11/04/18 at 18:45; Stop 11/04/18 at 19:45; Status DC Methylprednisolone Sodium Succinate (SOLU-Medrol 125MG VIAL) 125 mg 1X ONCE IM Last administered on 11/04/18at 19:54; Start 11/04/18 at 19:45; Stop 11/04/18 at 19:48; Status DC Levofloxacin/ Dextrose 150 ml @ 100 mls/hr 1X ONCE IV Last administered on 11/04/18at 20:46; Start 11/04/18 at 20:30; Stop 11/04/18 at 21:59; Status DC Ondansetron HCl (Zofran) 4 mg PRN Q8HRS PRN IV NAUSEA/VOMITING; Start 11/04/18 at 20:30; Stop 11/05/18 at 20:29; Status DC Acetaminophen (Tylenol) 650 mg PRN Q4HRS PRN PO FEVER; Start 11/04/18 at 20:30; Stop 11/05/18 at 20:29; Status Cancel Albuterol/ Ipratropium (Duoneb) 3 ml RTQID NEB ; Start 11/05/18 at 08:00; Stop 11/04/18 at 21:33; Status DC Methylprednisolone Sodium Succinate (SOLU-Medrol 125MG VIAL) 125 mg Q12HR IV Last administered on 11/06/18at 08:44; Start 11/05/18 at 09:00 Vancomycin HCl (Vanco Per Pharmacy) 1 each PRN DAILY PRN MC SEE COMMENTS Last administered on 11/05/18at 14:14; Start 11/04/18 at 21:30; Stop 11/05/18 at 14:48; Status DC Piperacillin Sod/ Tazobactam Sod (Zosyn Per Pharmacy) 1 each PRN DAILY PRN MC SEE COMMENTS; Start 11/04/18 at 22:00; Stop 11/05/18 at 14:48; Status DC Polyethylene Glycol (miraLAX PACKET) 17 gm DAILY PO ; Start 11/05/18 at 09:00; Stop 11/06/18 at 09:22; Status DC Docusate Sodium (Colace) 100 mg DAILY PO Last administered on 11/06/18at 08:44; Start 11/05/18 at 09:00 Albuterol/ Ipratropium (Duoneb) 3 ml Q4HRS W/A NEB Last administered on 11/05/18at 15:12; Start 11/04/18 at 22:00; Stop 11/05/18 at 19:00; Status DC Albuterol Sulfate (Ventolin Neb Soln) 2.5 mg PRN QID PRN NEB dyspnea Last administered on 11/06/18at 03:50; Start 11/04/18 at 21:45 Vancomycin HCl 1.5 gm/Sodium Chloride 500 ml @ 250 mls/hr 1X ONCE IV Last administered on 11/04/18at 23:09; Start 11/04/18 at 22:00; Stop 11/04/18 at 23:59; Status DC Piperacillin Sod/ Tazobactam Sod 3.375 gm/Sodium Chloride 50 ml @ 100 mls/hr Q6HRS IV Last administered on 11/05/18at 12:24; Start 11/05/18 at 00:00; Stop 11/05/18 at 14:49; Status DC Acetaminophen (Tylenol) 650 mg PRN Q4HRS PRN PO TEMP OVER 100.4F OR MILD PAIN; Start 11/04/18 at 22:45 Aspirin (Ecotrin) 81 mg DAILYWBKFT PO Last administered on 11/06/18 08:44; Start 11/05/18 at 08:00 Lorazepam (Ativan) 1 mg PRN BID PRN PO ANXIETY / AGITATION Last administered on 11/05/18 21:01; Start 11/04/18 at 22:45 Metformin HCl (Glucophage) 500 mg DAILYWBKFT PO Last administered on 11/06/18 08:44; Start 11/05/18 at 08:00 Metoclopramide HCl (Reglan) 5 mg QID PO Last administered on 11/06/18 17:24; Start 11/05/18 at 09:00 Montelukast Sodium (Singulair) 10 mg QHS PO Last administered on 11/05/18 21:01; Start 11/05/18 at 21:00 Oxycodone/ Acetaminophen (Percocet 5/325) 1 tab PRN Q6HRS PRN PO SEVERE PAIN; Start 11/04/18 at 22:45 Polyethylene Glycol (miraLAX PACKET) 17 gm BID PO Last administered on 11/06/18 08:44; Start 11/05/18 at 09:00 Prednisone (Prednisone) 10 mg DAILY PO ; Start 11/05/18 at 09:00; Status UNV Tizanidine HCl (Zanaflex) 4 mg PRN TID PRN PO MUSCLE SPASMS Last administered on 11/05/18 09:33; Start 11/04/18 at 22:45 Azithromycin (Zithromax) 250 mg DAILY PO Last administered on 11/06/18 08:44; Start 11/05/18 at 09:00 Nystatin (Nystatin Oral Susp) 5 ml [id number] Last administered on 11/06/18 15:27; Start 11/05/18 at 09:00 Tramadol HCl (Ultram) 50 mg PRN Q6HRS PRN PO MODERATE PAIN Last administered on 11/06/18 09:26; Start 11/04/18 at 23:00 Pantoprazole Sodium (Protonix) 20 mg DAILYAC PO Last administered on 11/06/18 08:44; Start 11/05/18 at 07:30 Vancomycin HCl 1 gm/Sodium Chloride 250 ml @ 250 mls/hr Q12H IV Last administered on 11/05/18at 09:33; Start 11/05/18 at 10:00; Stop 11/05/18 at 14:49; Status DC Vancomycin HCl (Vancomycin Trough Level) 1 each 1X ONCE MC ; Start 11/06/18 at 09:30; Stop 11/05/18 at 14:49; Status DC Metoclopramide HCl (Reglan) 10 mg STK-MED ONCE .ROUTE ; Start 11/05/18 at 07:28; Stop 11/05/18 at 07:28; Status DC Lactobacillus Rhamnosus (Culturelle) 1 cap BID PO Last administered on 11/06/18at 08:44; Start 11/05/18 at 15:00 Albuterol/ Ipratropium (Duoneb) 3 ml RTQID NEB Last administered on 11/06/18at 15:29; Start 11/05/18 at 20:00 Active Scripts Active Miralax (Polyethylene Glycol 3350) 119 Gm Powder 17 Gm PO BID Prednisone (Prednisone) 10 Mg Tablet 10 Mg PO DAILY 5 Days Nystatin 100,000 Unit/1 Ml Oral.susp 5 Ml SWSW [id number] 5 Days Duoneb 0.5-3(2.5) Mg/3 Ml (Albuterol/Ipratropium) 3 Ml Ampul.neb 3 Ml NEB QID Tessalon Perle (Benzonatate) 100 Mg Capsule 1 Cap PO TID Montelukast Sodium Tablet (Montelukast Sodium) 10 Mg Tablet 10 Mg PO QHS Lidocaine PATCH (Lidocaine) 1 Each Adh..patch 1 Each TP DAILY 30 Days REMOVE AFTER 12 HOURS Ativan (Lorazepam) 1 Mg Tablet 1 Mg PO PRN BID PRN Humalog (Insulin Lispro) 100 Unit/1 Ml Insuln.pen 0 Units SQ TIDWMEALS 30 Days Aspirin Ec (Aspirin) 81 Mg Tablet.dr 81 Mg PO DAILYWBKFT 30 Days Cyclobenzaprine Hcl 5 Mg Tablet 5 Mg PO PRN TID PRN Tramadol Hcl 50 Mg Tablet 50 Mg PO PRN Q6HRS PRN 6 Days Guaifenesin 100 Mg/5 Ml Liquid 200 Mg PO PRN Q4HRS PRN 30 Days Tylenol (Acetaminophen) 325 Mg Tablet 650 Mg PO PRN Q4HRS PRN 10 Days Ventolin Hfa Inhaler (Albuterol Sulfate) 18 Gm Hfa.aer.ad 2 Puff INH Q4HRS Reglan (Metoclopramide Hcl) 10 Mg Tablet 0.5 Tab PO QID 30 Days Reported Tizanidine Hcl 4 Mg Tablet 4 Mg PO TID PRN Percocet 5-325 Mg Tablet (Oxycodone/Acetaminophen) 1 Each Tablet 1 Tab PO PRN Q6HRS PRN Azithromycin Tablet (Azithromycin) 250 Mg Tablet 250 Mg PO DAILY Xarelto (Rivaroxaban) 20 Mg Tablet 20 Mg PO DAILY Metformin Hcl 500 Mg Tablet 500 Mg PO DAILYWBKFT Pulmicort (Budesonide) 0.25 Mg/2 Ml Ampul.neb 1 Vial NEB BID Albuterol Sulfate Neb Soln (Albuterol Sulfate) 2.5 Mg/3 Ml Vial.neb 1 Vial NEB PRN Q2HR PRN Furosemide 40 Mg Tablet 1 Tab PO DAILY Vitamin D3 (Cholecalciferol (Vitamin D3)) 5,000 Unit Tablet 5,000 Unit PO DAILY Potassium Chloride 20 Meq Tablet.er 20 Meq PO DAILY Protonix (Pantoprazole Sodium) 20 Mg Tablet.dr 1 Tab PO DAILY Atorvastatin Calcium 10 Mg Tablet 10 Mg PO HS Symbicort 160-4.5 Mcg Inhaler (Budesonide/Formoterol Fumarate) 10.2 Gm Hfa.aer.ad 2 Puff IH BID Vitals/I & O Vital Sign - Last 24 Hours 11/05/18 11/05/18 11/05/18 11/05/18 18:25 19:25 19:44 20:00 Temp 99.6 99.6 Pulse 84 Resp 18 20 B/P (MAP) 117/74 (88) Pulse Ox 97 100 O2 Delivery Nasal Cannula Nasal Cannula Nasal Cannula Nasal Cannula O2 Flow Rate 3.0 3.0 3.0 3.0 11/05/18 11/05/18 11/05/18 11/06/18 21:01 23:03 23:46 03:40 Temp 98.1 98.2 98.1 98.2 Pulse 101 75 Resp 19 20 20 B/P (MAP) 130/81 (97) 128/73 (91) Pulse Ox 100 100 95 100 O2 Delivery Nasal Cannula Nasal Cannula Nasal Cannula Nasal Cannula O2 Flow Rate 3.0 3.0 3.0 3.0 11/06/18 11/06/18 11/06/18 11/06/18 03:50 07:00 07:39 08:00 Temp 98.2 98.2 Pulse 71 B/P (MAP) 125/82 (96) Pulse Ox 92 100 O2 Delivery Nasal Cannula Nasal Cannula Nasal Cannula Nasal Cannula O2 Flow Rate 3.0 3.0 3.0 3.0 11/06/18 11/06/18 11/06/18 11/06/18 09:26 10:44 10:50 12:02 Temp 98.2 98.2 Pulse 89 B/P (MAP) 118/64 (82) Pulse Ox 100 100 99 100 O2 Delivery Nasal Cannula Nasal Cannula Nasal Cannula Nasal Cannula O2 Flow Rate 3.0 3.0 3.0 3.0 11/06/18 11/06/18 15:30 15:53 Temp 98.9 98.9 Pulse 97 B/P (MAP) 103/51 (68) Pulse Ox 100 88 O2 Delivery Nasal Cannula Nasal Cannula O2 Flow Rate 3.0 3.0 Intake and Output 11/05/18 11/05/18 11/06/18 15:00 23:00 07:00 Intake Total 600 ml 300 ml 440 ml Output Total 250 ml Balance 600 ml 50 ml 440 ml NICOLASA STOVALL MD Nov 06, 2018 17:36
[2018-11-06 19:25] VITALS: BP 134/77
[2018-11-06] MEDS: LORazepam 1 MG TABLET PO PRN (19:58)
[2018-11-06] MEDS: MONTELUKAST SODIUM 10 MG TABLET. PO SCH (19:59)
[2018-11-06] MEDS: oxyCODONE/APAP 5/325 1 TAB TABLET PO PRN (20:08)
[2018-11-06 23:36] VITALS: BP 138/82
[2018-11-07 03:26] VITALS: BP 143/76
[2018-11-07 07:00] VITALS: BP 127/68
[2018-11-07] MEDS: IPRATRPIUM/ALBUTEROL 0.5/2.5MG 3 ML NEBU. NEB SCH ×4 (07:03→20:07)
[2018-11-07] MEDS: ASPIRIN ENTERIC COATED 81 MG TABLET.DR. PO SCH (08:06)
[2018-11-07] MEDS: LACTOBACILLUS RHAMNOSUS GG 1 CAPSULE. PO SCH ×2 (08:06→21:00)
[2018-11-07] MEDS: PANTOPRAZOLE 40 MG TABLET.DR. PO SCH (08:06)
[2018-11-07] MEDS: metFORMIN 500 MG TABLET PO SCH (08:07)
[2018-11-07] MEDS: AZITHROMYCIN 250 MG TABLET. PO SCH (08:07)
[2018-11-07] MEDS: DOCUSATE SODIUM 100 MG CAPSULE. PO SCH (08:07)
[2018-11-07] MEDS: METOCLOPRAMIDE 10 MG TABLET. PO SCH ×4 (08:07→21:00)
[2018-11-07] MEDS: NYSTATIN 100,000 UNITS/ML 5 ML ORAL.SUSP. SWSW SCH ×4 (08:07→21:00)
[2018-11-07] MEDS: methylPREDNISolone SOD SUCC PF 125 MG/2 ML VIAL. IV SCH ×2 (08:08→21:00)
[2018-11-07] MEDS: oxyCODONE/APAP 5/325 1 TAB TABLET PO PRN ×2 (08:10→17:31)
--- NOTE | 2018-11-07 09:30 | PDOC ---
PROGRESS NOTES Chief Complaint Chief Complaint sob better today. chronically on 2-3 liters of 02 History of Present Illness History of Present Illness IMPRESSION End Stage COPD with acute exacerbation - acute on chronic combined respiratory failure recent DC 3 days ago, per pulm defer IV abx, continue IV steroids, nebs ON RECENT CT CHEST No acute intrathoracic, intra-abdominal, or intrapelvic process identified. Approximately 40 percent T8 vertebral body height loss is new from 09/08/2018 exam. Correlate for point tenderness in the region. MRI thoracic spine could be obtained for further evaluation if there is concern for acute fracture. 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 following with pulm UNDERWEIGHT patient is not capable of living independently at home and should be at the [facility] home. 28 min pt exam, chart review, > 50% of time spent with exam, chart review, pt care coordination Vitals Vitals Vital Signs Date Time Temp Pulse Resp B/P (MAP) Pulse Ox O2 Delivery O2 Flow Rate FiO2 11/07/18 08:10 20 99 Nasal Cannula 3.0 11/07/18 07:00 98.2 78 127/68 (87) 98.2 Physical Exam Physical Exam HENT: Normocephalic, atraumatic, bilateral external ears normal, oropharynx moist, no oral exudates, nose normal. [ Cardiovascular:Heart rate regular rhythm, no murmur [] Lungs & Thorax: Decreased breath sounds, occasional wheeze Abdomen: Bowel sounds normal, soft, no tenderness, no masses, no pulsatile masses. [] Skin: Warm, dry, no erythema, no rash. [] Extremities: No tenderness, no cyanosis, no edema. [] Neurologic: Alert and oriented X 3, no focal deficits noted. [] Psychologic: Affect normal, judgement POOR, mood normal. CAPILLARY REFILL < 2 SEC [] General: Alert, Oriented X3, Cooperative Lungs: Other Abdomen: Normal bowel sounds, Soft, No tenderness Extremities: No cyanosis Skin: No significant lesion Labs LABS REASON: cough, abdominal pain PROCEDURE: CT CHEST ABD PELVIS W/CONTRAST CT CHEST ABDOMEN AND PELVIS WITH IV CONTRAST History: Cough, abdominal pain Comparison: CT chest dated 09/08/2018. Technique: Helical CT of the chest abdomen and pelvis was performed after the administration of intravenous contrast. Sagittal and coronal reconstructions were obtained. 75 mL Omnipaque 300. Chest Findings: The thyroid is symmetric. There is no significant axillary, mediastinal, or hilar adenopathy. The thoracic aorta diameter is normal. The cardiac size is normal. Coronary artery calcifications. There is no pericardial effusion. The upper limits of the bilateral apices are excluded from the [id number]. Redemonstration of large left upper lobe bullous. Otherwise moderate emphysematous changes elsewhere. Mild right apical subpleural fibrosis. Bilateral linear opacities likely related to atelectasis versus scarring. No focal consolidation. No suspicious pulmonary nodule or mass. No pleural effusion or pneumothorax. The central airways are patent. Abdomen Findings: The liver, gallbladder, pancreas, spleen, and bilateral adrenal glands are normal. Small left likely renal cyst, similar to prior. Bilateral kidneys otherwise enhance symmetrically. There is no focal renal mass. There is no hydronephrosis. The visualized loops of small bowel are normal. Moderate colonic stool. The visualized loops of large bowel are otherwise normal. There is no evidence of bowel obstruction. Appendix is normal. There is no free fluid. There is no mesenteric or retroperitoneal adenopathy. Mild atherosclerosis of the tortuous abdominal aorta and its branches. Likely severe stenosis in the proximal left superficial femoral artery, although incompletely visualized. Pelvis Findings: Urinary bladder is underdistended limiting evaluation. No pelvic free fluid. There is no significant pelvic or inguinal adenopathy. Approximately 40 percent T8 vertebral body height loss appears new from prior exam. Additional mild height loss including T7, T9, T10, and T12 appears similar to prior exams. Levocurvature of the lumbar spine. Moderate multilevel degenerative changes of the visualized spine. IMPRESSION: 1. No acute intrathoracic, intra-abdominal, or intrapelvic process identified. 2. Approximately 40 percent T8 vertebral body height loss is new from 09/08/2018 exam. Correlate for point tenderness in the region. MRI thoracic spine could be obtained for further evaluation if there is concern for acute fracture. PQRS Compliance Statement: One or more of the following individualized dose reduction techniques were utilized for this examination: 1. Automated exposure control 2. Adjustment of the mA and/or kV according to patient size 3. Use of iterative reconstruction technique Electronically signed by: Todd Mercedes MD (10/13/2018 10:14 PM) [facility] DICTATED and SIGNED BY: TODD MERCEDES MD DATE: 10/13/182213 Laboratory Tests Test 11/06/18 12:41 11/06/18 17:03 11/06/18 20:57 11/07/18 07:31 Glucose (Fingerstick) 157 mg/dL (70-99) 159 mg/dL (70-99) 129 mg/dL (70-99) 108 mg/dL (70-99) Assessment and Plan Assessmemt and Plan Problems Medical Problems: (1) Acute and chronic respiratory failure Status: Acute (2) Chronic respiratory failure Status: Chronic (3) Chronic respiratory failure with hypoxia Status: Chronic (4) COPD with exacerbation Status: Acute (5) Depression Status: Chronic (6) Dyspnea Status: Acute (7) Hypertension Status: Chronic (8) Right conjunctivitis Status: Acute (9) Tachycardia Status: Acute Comment Review of Relevant I have reviewed the following items franki (where applicable) has been applied. Labs Laboratory Tests Test 11/05/18 11:25 11/05/18 16:25 11/05/18 20:51 11/06/18 08:40 Glucose (Fingerstick) 197 mg/dL (70-99) 145 mg/dL (70-99) 135 mg/dL (70-99) 141 mg/dL (70-99) Test 11/06/18 12:41 11/06/18 17:03 11/06/18 20:57 11/07/18 07:31 Glucose (Fingerstick) 157 mg/dL (70-99) 159 mg/dL (70-99) 129 mg/dL (70-99) 108 mg/dL (70-99) Laboratory Tests Test 11/06/18 12:41 11/06/18 17:03 11/06/18 20:57 11/07/18 07:31 Glucose (Fingerstick) 157 mg/dL (70-99) 159 mg/dL (70-99) 129 mg/dL (70-99) 108 mg/dL (70-99) Medications Current Medications Albuterol/ Ipratropium (Duoneb) 3 ml 1X ONCE NEB Last administered on 11/04/18at 18:55; Start 11/04/18 at 18:45; Stop 11/04/18 at 18:46; Status DC Methylprednisolone Sodium Succinate (SOLU-Medrol 125MG VIAL) 125 mg 1X ONCE IV ; Start 11/04/18 at 18:45; Stop 11/04/18 at 19:45; Status DC Methylprednisolone Sodium Succinate (SOLU-Medrol 125MG VIAL) 125 mg 1X ONCE IM Last administered on 11/04/18at 19:54; Start 11/04/18 at 19:45; Stop 11/04/18 at 19:48; Status DC Levofloxacin/ Dextrose 150 ml @ 100 mls/hr 1X ONCE IV Last administered on 11/04/18at 20:46; Start 11/04/18 at 20:30; Stop 11/04/18 at 21:59; Status DC Ondansetron HCl (Zofran) 4 mg PRN Q8HRS PRN IV NAUSEA/VOMITING; Start 11/04/18 at 20:30; Stop 11/05/18 at 20:29; Status DC Acetaminophen (Tylenol) 650 mg PRN Q4HRS PRN PO FEVER; Start 11/04/18 at 20:30; Stop 11/05/18 at 20:29; Status Cancel Albuterol/ Ipratropium (Duoneb) 3 ml RTQID NEB ; Start 11/05/18 at 08:00; Stop 11/04/18 at 21:33; Status DC Methylprednisolone Sodium Succinate (SOLU-Medrol 125MG VIAL) 125 mg Q12HR IV Last administered on 11/07/18at 08:08; Start 11/05/18 at 09:00 Vancomycin HCl (Vanco Per Pharmacy) 1 each PRN DAILY PRN MC SEE COMMENTS Last administered on 11/05/18at 14:14; Start 11/04/18 at 21:30; Stop 11/05/18 at 14:48; Status DC Piperacillin Sod/ Tazobactam Sod (Zosyn Per Pharmacy) 1 each PRN DAILY PRN MC SEE COMMENTS; Start 11/04/18 at 22:00; Stop 11/05/18 at 14:48; Status DC Polyethylene Glycol (miraLAX PACKET) 17 gm DAILY PO ; Start 11/05/18 at 09:00; Stop 11/06/18 at 09:22; Status DC Docusate Sodium (Colace) 100 mg DAILY PO Last administered on 11/07/18 08:07; Start 11/05/18 at 09:00 Albuterol/ Ipratropium (Duoneb) 3 ml Q4HRS W/A NEB Last administered on 11/05/18 15:12; Start 11/04/18 at 22:00; Stop 11/05/18 at 19:00; Status DC Albuterol Sulfate (Ventolin Neb Soln) 2.5 mg PRN QID PRN NEB dyspnea Last administered on 11/06/18 03:50; Start 11/04/18 at 21:45 Vancomycin HCl 1.5 gm/Sodium Chloride 500 ml @ 250 mls/hr 1X ONCE IV Last administered on 11/04/18 23:09; Start 11/04/18 at 22:00; Stop 11/04/18 at 23:59; Status DC Piperacillin Sod/ Tazobactam Sod 3.375 gm/Sodium Chloride 50 ml @ 100 mls/hr Q6HRS IV Last administered on 11/05/18 12:24; Start 11/05/18 at 00:00; Stop 11/05/18 at 14:49; Status DC Acetaminophen (Tylenol) 650 mg PRN Q4HRS PRN PO TEMP OVER 100.4F OR MILD PAIN; Start 11/04/18 at 22:45 Aspirin (Ecotrin) 81 mg DAILYWBKFT PO Last administered on 11/07/18 08:06; Start 11/05/18 at 08:00 Lorazepam (Ativan) 1 mg PRN BID PRN PO ANXIETY / AGITATION Last administered on 11/06/18 19:58; Start 11/04/18 at 22:45 Metformin HCl (Glucophage) 500 mg DAILYWBKFT PO Last administered on 11/07/18 08:07; Start 11/05/18 at 08:00 Metoclopramide HCl (Reglan) 5 mg QID PO Last administered on 11/07/18 08:07; Start 11/05/18 at 09:00 Montelukast Sodium (Singulair) 10 mg QHS PO Last administered on 11/06/18 19:59; Start 11/05/18 at 21:00 Oxycodone/ Acetaminophen (Percocet 5/325) 1 tab PRN Q6HRS PRN PO SEVERE PAIN Last administered on 11/07/18 08:10; Start 11/04/18 at 22:45 Polyethylene Glycol (miraLAX PACKET) 17 gm BID PO Last administered on 11/06/18 19:59; Start 11/05/18 at 09:00 Prednisone (Prednisone) 10 mg DAILY PO ; Start 11/05/18 at 09:00; Status UNV Tizanidine HCl (Zanaflex) 4 mg PRN TID PRN PO MUSCLE SPASMS Last administered on 11/05/18 09:33; Start 11/04/18 at 22:45 Azithromycin (Zithromax) 250 mg DAILY PO Last administered on 11/07/18 08:07; Start 11/05/18 at 09:00 Nystatin (Nystatin Oral Susp) 5 ml [id number] Last administered on 11/07/18 08:07; Start 11/05/18 at 09:00 Tramadol HCl (Ultram) 50 mg PRN Q6HRS PRN PO MODERATE PAIN Last administered on 11/06/18 09:26; Start 11/04/18 at 23:00 Pantoprazole Sodium (Protonix) 20 mg DAILYAC PO Last administered on 11/07/18 08:06; Start 11/05/18 at 07:30 Vancomycin HCl 1 gm/Sodium Chloride 250 ml @ 250 mls/hr Q12H IV Last administered on 11/05/18 09:33; Start 11/05/18 at 10:00; Stop 11/05/18 at 14:49; Status DC Vancomycin HCl (Vancomycin Trough Level) 1 each 1X ONCE MC ; Start 11/06/18 at 09:30; Stop 11/05/18 at 14:49; Status DC Metoclopramide HCl (Reglan) 10 mg STK-MED ONCE .ROUTE ; Start 11/05/18 at 07:28; Stop 11/05/18 at 07:28; Status DC Lactobacillus Rhamnosus (Culturelle) 1 cap BID PO Last administered on 11/07/18 08:06; Start 11/05/18 at 15:00 Albuterol/ Ipratropium (Duoneb) 3 ml RTQID NEB Last administered on 11/07/18at 07:03; Start 11/05/18 at 20:00 Active Scripts Active Miralax (Polyethylene Glycol 3350) 119 Gm Powder 17 Gm PO BID Prednisone (Prednisone) 10 Mg Tablet 10 Mg PO DAILY 5 Days Nystatin 100,000 Unit/1 Ml Oral.susp 5 Ml SWSW [id number] 5 Days Duoneb 0.5-3(2.5) Mg/3 Ml (Albuterol/Ipratropium) 3 Ml Ampul.neb 3 Ml NEB QID Tessalon Perle (Benzonatate) 100 Mg Capsule 1 Cap PO TID Montelukast Sodium Tablet (Montelukast Sodium) 10 Mg Tablet 10 Mg PO QHS Lidocaine PATCH (Lidocaine) 1 Each Adh..patch 1 Each TP DAILY 30 Days REMOVE AFTER 12 HOURS Ativan (Lorazepam) 1 Mg Tablet 1 Mg PO PRN BID PRN Humalog (Insulin Lispro) 100 Unit/1 Ml Insuln.pen 0 Units SQ TIDWMEALS 30 Days Aspirin Ec (Aspirin) 81 Mg Tablet.dr 81 Mg PO DAILYWBKFT 30 Days Cyclobenzaprine Hcl 5 Mg Tablet 5 Mg PO PRN TID PRN Tramadol Hcl 50 Mg Tablet 50 Mg PO PRN Q6HRS PRN 6 Days Guaifenesin 100 Mg/5 Ml Liquid 200 Mg PO PRN Q4HRS PRN 30 Days Tylenol (Acetaminophen) 325 Mg Tablet 650 Mg PO PRN Q4HRS PRN 10 Days Ventolin Hfa Inhaler (Albuterol Sulfate) 18 Gm Hfa.aer.ad 2 Puff INH Q4HRS Reglan (Metoclopramide Hcl) 10 Mg Tablet 0.5 Tab PO QID 30 Days Reported Tizanidine Hcl 4 Mg Tablet 4 Mg PO TID PRN Percocet 5-325 Mg Tablet (Oxycodone/Acetaminophen) 1 Each Tablet 1 Tab PO PRN Q6HRS PRN Azithromycin Tablet (Azithromycin) 250 Mg Tablet 250 Mg PO DAILY Xarelto (Rivaroxaban) 20 Mg Tablet 20 Mg PO DAILY Metformin Hcl 500 Mg Tablet 500 Mg PO DAILYWBKFT Pulmicort (Budesonide) 0.25 Mg/2 Ml Ampul.neb 1 Vial NEB BID Albuterol Sulfate Neb Soln (Albuterol Sulfate) 2.5 Mg/3 Ml Vial.neb 1 Vial NEB PRN Q2HR PRN Furosemide 40 Mg Tablet 1 Tab PO DAILY Vitamin D3 (Cholecalciferol (Vitamin D3)) 5,000 Unit Tablet 5,000 Unit PO DAILY Potassium Chloride 20 Meq Tablet.er 20 Meq PO DAILY Protonix (Pantoprazole Sodium) 20 Mg Tablet.dr 1 Tab PO DAILY Atorvastatin Calcium 10 Mg Tablet 10 Mg PO HS Symbicort 160-4.5 Mcg Inhaler (Budesonide/Formoterol Fumarate) 10.2 Gm Hfa.aer.ad 2 Puff IH BID Vitals/I & O Vital Sign - Last 24 Hours 11/06/18 11/06/18 11/06/18 11/06/18 10:44 10:50 12:02 15:30 Temp 98.2 98.2 Pulse 89 B/P (MAP) 118/64 (82) Pulse Ox 100 99 100 100 O2 Delivery Nasal Cannula Nasal Cannula Nasal Cannula Nasal Cannula O2 Flow Rate 3.0 3.0 3.0 3.0 11/06/18 11/06/18 11/06/18 11/06/18 15:53 19:25 19:53 20:00 Temp 98.9 98.5 98.9 98.5 Pulse 97 83 Resp 18 B/P (MAP) 103/51 (68) 134/77 (96) Pulse Ox 88 98 99 O2 Delivery Nasal Cannula Nasal Cannula Nasal Cannula Nasal Cannula O2 Flow Rate 3.0 3.0 3.0 3.0 11/06/18 11/06/18 11/06/18 11/07/18 20:08 21:08 23:36 03:26 Temp 98.3 98.4 98.3 98.4 Pulse 92 79 Resp 16 16 20 20 B/P (MAP) 138/82 (100) 143/76 (98) Pulse Ox 99 99 100 O2 Delivery Nasal Cannula Nasal Cannula Nasal Cannula O2 Flow Rate 3.0 3.0 3.0 11/07/18 11/07/18 11/07/18 07:00 07:04 08:10 Temp 98.2 98.2 Pulse 78 Resp 18 20 B/P (MAP) 127/68 (87) Pulse Ox 100 99 99 O2 Delivery Nasal Cannula Nasal Cannula Nasal Cannula O2 Flow Rate 3.0 3.0 3.0 Intake and Output 11/06/18 11/06/18 11/07/18 15:00 23:00 07:00 Intake Total 300 ml 210 ml Output Total 300 ml 500 ml Balance 0 ml -290 ml TOMAS BAIG MD Nov 07, 2018 09:30
[2018-11-07] MEDS: POLYETHYLENE GLYCOL 3350 17 GM PACKET. PO SCH ×2 (10:21→21:00)
[2018-11-07 11:00] VITALS: BP 131/69
--- NOTE | 2018-11-07 12:48 | PDOC ---
PULMONARY PROGRESS NOTES Subjective dry cough, no increase soa Vitals Vital Signs Date Time Temp Pulse Resp B/P (MAP) Pulse Ox O2 Delivery O2 Flow Rate FiO2 11/07/18 11:28 Nasal Cannula 3.0 11/07/18 11:00 98.1 104 18 131/69 (89) 98 98.1 General: Alert, Oriented X4, No acute distress Lungs: Other Cardiovascular: S1, S2 Abdomen: Soft, Non-tender Neuro Exam: Alert Extremities: Other Labs Laboratory Tests Test 11/05/18 16:25 11/05/18 20:51 11/06/18 08:40 11/06/18 12:41 Glucose (Fingerstick) 145 mg/dL (70-99) 135 mg/dL (70-99) 141 mg/dL (70-99) 157 mg/dL (70-99) Test 11/06/18 17:03 11/06/18 20:57 11/07/18 07:31 11/07/18 11:25 Glucose (Fingerstick) 159 mg/dL (70-99) 129 mg/dL (70-99) 108 mg/dL (70-99) 138 mg/dL (70-99) Laboratory Tests Test 11/06/18 17:03 11/06/18 20:57 11/07/18 07:31 11/07/18 11:25 Glucose (Fingerstick) 159 mg/dL (70-99) 129 mg/dL (70-99) 108 mg/dL (70-99) 138 mg/dL (70-99) Medications Active Scripts Medications Dose Route/Sig Max Daily Dose Days Date Category Dose Instructions Tizanidine Hcl 4 Mg Tablet 4 Mg PO TID PRN 11/04/18 Reported Percocet 5-325 Mg Tablet (Oxycodone/Acetaminophen) 1 Each Tablet 1 Tab PO PRN Q6HRS PRN 11/04/18 Reported Azithromycin Tablet (Azithromycin) 250 Mg Tablet 250 Mg PO DAILY 11/04/18 Reported Miralax (Polyethylene Glycol 3350) 119 Gm Powder 17 Gm PO BID 11/03/18 Rx Prednisone (Prednisone) 10 Mg Tablet 10 Mg PO DAILY 5 10/31/18 Rx Nystatin 100,000 Unit/1 Ml Oral.susp 5 Ml SWSW [id number] 5 10/31/18 Rx Duoneb 0.5-3(2.5) Mg/3 Ml (Albuterol/Ipratropium) 3 Ml Ampul.neb 3 Ml NEB QID 10/28/18 Rx Tessalon Perle (Benzonatate) 100 Mg Capsule 1 Cap PO TID 10/28/18 Rx Montelukast Sodium Tablet (Montelukast Sodium) 10 Mg Tablet 10 Mg PO QHS 10/28/18 Rx Lidocaine PATCH (Lidocaine) 1 Each Adh..patch 1 Each TP DAILY 30 09/11/18 Rx REMOVE AFTER 12 HOURS Ativan (Lorazepam) 1 Mg Tablet 1 Mg PO PRN BID PRN 09/11/18 Rx Xarelto (Rivaroxaban) 20 Mg Tablet 20 Mg PO DAILY 09/09/18 Reported Metformin Hcl 500 Mg Tablet 500 Mg PO DAILYWBKFT 09/09/18 Reported Humalog (Insulin Lispro) 100 Unit/1 Ml Insuln.pen 0 Units SQ TIDWMEALS 30 08/28/18 Rx Aspirin Ec (Aspirin) 81 Mg Tablet.dr 81 Mg PO DAILYWBKFT 30 08/28/18 Rx Pulmicort (Budesonide) 0.25 Mg/2 Ml Ampul.neb 1 Vial NEB BID 08/25/18 Reported Albuterol Sulfate Neb Soln (Albuterol Sulfate) 2.5 Mg/3 Ml Vial.neb 1 Vial NEB PRN Q2HR PRN 08/25/18 Reported Cyclobenzaprine Hcl 5 Mg Tablet 5 Mg PO PRN TID PRN 08/20/18 Rx Tramadol Hcl 50 Mg Tablet 50 Mg PO PRN Q6HRS PRN 6 07/12/18 Rx Furosemide 40 Mg Tablet 1 Tab PO DAILY 06/20/18 Reported Guaifenesin 100 Mg/5 Ml Liquid 200 Mg PO PRN Q4HRS PRN 30 05/30/18 Rx Tylenol (Acetaminophen) 325 Mg Tablet 650 Mg PO PRN Q4HRS PRN 10 05/30/18 Rx Ventolin Hfa Inhaler (Albuterol Sulfate) 18 Gm Hfa.aer.ad 2 Puff INH Q4HRS 05/10/18 Rx Vitamin D3 (Cholecalciferol (Vitamin D3)) 5,000 Unit Tablet 5,000 Unit PO DAILY 03/15/18 Reported Reglan (Metoclopramide Hcl) 10 Mg Tablet 0.5 Tab PO QID 30 02/14/18 Rx Potassium Chloride 20 Meq Tablet.er 20 Meq PO DAILY 01/13/18 Reported Protonix (Pantoprazole Sodium) 20 Mg Tablet.dr 1 Tab PO DAILY 11/18/17 Reported Atorvastatin Calcium 10 Mg Tablet 10 Mg PO HS 08/21/17 Reported Symbicort 160-4.5 Mcg Inhaler (Budesonide/Formoterol Fumarate) 10.2 Gm Hfa.aer.ad 2 Puff IH BID 09/21/15 Reported Impression . 1. Dyspnea in a patient with end-stage chronic obstructive pulmonary disease and chronic hypoxic respiratory failure. Now comes in with exacerbation of chronic obstructive pulmonary disease triggered by cold temperature when he visited [facility]. 2. No signs of acute infection. 3. Stable, unchanged chest x-ray with extensive large bullous lung disease on the left side. 4. History of pulmonary embolism, which subsequently resolved on followup scans. Currently, on Xarelto. Plan . 1. Discussed with the patient and social work manager. Most of his readmissions are related to social issues ans end stage COPD. I would recommend that the patient is not capable of living independently at home [facility] director dental services to help regarding that. 2. In the meantime, continue present bronchodilators. 3. Continue steroids. 4. I do not see a need for antibiotics. It can be deescalated or discontinued. 5. Continue Xarelto, but monitor hemoglobin closely. VIN MEAD MD Nov 07, 2018 12:48
[2018-11-07 15:00] VITALS: BP 125/68
[2018-11-07 19:12] VITALS: BP 144/80
[2018-11-07] MEDS: MONTELUKAST SODIUM 10 MG TABLET. PO SCH (21:00)
[2018-11-07 23:29] VITALS: BP 120/69
[2018-11-08] MEDS: ALBUTEROL SULFATE 2.5 MG/3 ML NEBU. NEB PRN (04:37)
[2018-11-08 04:58] LABS: BASO % 0 % (0-3); EOS % 0 % (0-3); HEMATOCRIT 21.5 % (39.0-53.0); LYMPH # 0.1 x10^3/uL (1.0-4.8); LYMPH % 2 % (24-48); MEAN CORPUSCULAR HEMOGLOBIN 22 pg (25-35); MEAN CORPUSCULAR HGB CONC 31 g/dL (31-37); MEAN CORPUSCULAR VOLUME 71 fL (79-100); MONO # 0.2 x10^3/uL (0.0-1.1); MONO % 4 % (0-9); NEUT # 5.3 x10^3/uL (1.8-7.7); NEUT % 94 % (31-73); PLATELET COUNT 180 x10^3/uL (140-400); RED BLOOD COUNT 3.04 x10^6/uL (4.30-5.70); RED CELL DISTRIBUTION WIDTH 20.1 % (11.5-14.5); WHITE BLOOD COUNT 5.7 x10^3/uL (4.0-11.0)
[2018-11-08 05:16] LABS: HEMOGLOBIN 6.7 g/dL (13.0-17.5)
[2018-11-08 05:39] LABS: ALBUMIN/GLOBULIN RATIO 1.1 (1.0-1.7); CALCIUM 8.8 mg/dL (8.5-10.1); CREATININE 0.7 mg/dL (0.7-1.3); GFR 139.7; POTASSIUM 4.2 mmol/L (3.5-5.1); TOTAL BILIRUBIN 0.3 mg/dL (0.2-1.0); TOTAL PROTEIN 5.7 g/dL (6.4-8.2)
[2018-11-08 06:17] LABS: HEMATOCRIT 23.4 % (39.0-53.0); HEMOGLOBIN 7.2 g/dL (13.0-17.5)
[2018-11-08 07:00] VITALS: BP 139/76
--- NOTE | 2018-11-08 07:32 | PDOC ---
PROGRESS NOTES Chief Complaint Chief Complaint sob better today. 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 Approximately 40 percent T8 vertebral body height loss is new from 09/08/2018 exam. Correlate for point tenderness in the region. MRI thoracic spine could be obtained for further evaluation if there is concern for acute fracture. 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 following with pulm UNDERWEIGHT patient is not capable of living independently at home and should be at the [facility]. 26 min pt exam, chart review, > 50% of time spent with exam, chart review, pt care coordination Vitals Vitals Vital Signs Date Time Temp Pulse Resp B/P (MAP) Pulse Ox O2 Delivery O2 Flow Rate FiO2 11/08/18 04:36 Nasal Cannula 3.0 11/07/18 23:29 98.7 86 20 120/69 (86) 97 98.7 Physical Exam Physical Exam HENT: Normocephalic, atraumatic, bilateral external ears normal, oropharynx moist, no oral exudates, nose normal. [ Cardiovascular:Heart rate regular rhythm, no murmur [] Lungs & Thorax: Decreased breath sounds, occasional wheeze Abdomen: Bowel sounds normal, soft, no tenderness, no masses, no pulsatile masses. [] Skin: Warm, dry, no erythema, no rash. [] Extremities: No tenderness, no cyanosis, no edema. [] Neurologic: Alert and oriented X 3, no focal deficits noted. [] Psychologic: Affect normal, judgement POOR, mood normal. CAPILLARY REFILL < 2 SEC [] General: Alert, Oriented X3, Cooperative, No acute distress Heart: Regular rate Lungs: Clear, Other Abdomen: Normal bowel sounds, Soft, No tenderness Extremities: No cyanosis Skin: No significant lesion Labs LABS Laboratory Tests Test 11/07/18 11:25 11/07/18 17:05 11/07/18 20:56 11/08/18 04:05 Glucose (Fingerstick) 138 mg/dL (70-99) 135 mg/dL (70-99) 142 mg/dL (70-99) White Blood Count 5.7 x10^3/uL (4.0-11.0) Red Blood Count 3.04 x10^6/uL (4.30-5.70) Hemoglobin 6.7 g/dL (13.0-17.5) Hematocrit 21.5 % (39.0-53.0) Mean Corpuscular Volume 71 fL (79-100) Mean Corpuscular Hemoglobin 22 pg (25-35) Mean Corpuscular Hemoglobin Concent 31 g/dL (31-37) Red Cell Distribution Width 20.1 % (11.5-14.5) Platelet Count 180 x10^3/uL (140-400) Neutrophils (%) (Auto) 94 % (31-73) Lymphocytes (%) (Auto) 2 % (24-48) Monocytes (%) (Auto) 4 % (0-9) Eosinophils (%) (Auto) 0 % (0-3) Basophils (%) (Auto) 0 % (0-3) Neutrophils # (Auto) 5.3 x10^3/uL (1.8-7.7) Lymphocytes # (Auto) 0.1 x10^3/uL (1.0-4.8) Monocytes # (Auto) 0.2 x10^3/uL (0.0-1.1) Eosinophils # (Auto) 0.0 x10^3/uL (0.0-0.7) Basophils # (Auto) 0.0 x10^3/uL (0.0-0.2) Sodium Level 140 mmol/L (136-145) Potassium Level 4.2 mmol/L (3.5-5.1) Chloride Level 102 mmol/L (98-107) Carbon Dioxide Level 32 mmol/L (21-32) Anion Gap 6 (6-14) Blood Urea Nitrogen 12 mg/dL (8-26) Creatinine 0.7 mg/dL (0.7-1.3) Estimated GFR (Cockcroft-Gault) 139.7 BUN/Creatinine Ratio 17 (6-20) Glucose Level 158 mg/dL (70-99) Calcium Level 8.8 mg/dL (8.5-10.1) Total Bilirubin 0.3 mg/dL (0.2-1.0) Aspartate Amino Transf (AST/SGOT) 11 U/L (15-37) Alanine Aminotransferase (ALT/SGPT) 17 U/L (16-63) Alkaline Phosphatase 72 U/L (46-116) Total Protein 5.7 g/dL (6.4-8.2) Albumin 3.0 g/dL (3.4-5.0) Albumin/Globulin Ratio 1.1 (1.0-1.7) Test 11/08/18 06:05 Hemoglobin 7.2 g/dL (13.0-17.5) Hematocrit 23.4 % (39.0-53.0) Mean Corpuscular Hemoglobin Concent 31 g/dL (31-37) Assessment and Plan Assessmemt and Plan Problems Medical Problems: (1) Acute and chronic respiratory failure Status: Acute (2) Chronic respiratory failure Status: Chronic (3) Chronic respiratory failure with hypoxia Status: Chronic (4) COPD with exacerbation Status: Acute (5) Depression Status: Chronic (6) Dyspnea Status: Acute (7) Hypertension Status: Chronic (8) Right conjunctivitis Status: Acute (9) Tachycardia Status: Acute Comment Review of Relevant I have reviewed the following items franki (where applicable) has been applied. Labs Laboratory Tests Test 11/06/18 08:40 11/06/18 12:41 11/06/18 17:03 11/06/18 20:57 Glucose (Fingerstick) 141 mg/dL (70-99) 157 mg/dL (70-99) 159 mg/dL (70-99) 129 mg/dL (70-99) Test 11/07/18 07:31 11/07/18 11:25 11/07/18 17:05 11/07/18 20:56 Glucose (Fingerstick) 108 mg/dL (70-99) 138 mg/dL (70-99) 135 mg/dL (70-99) 142 mg/dL (70-99) Test 11/08/18 04:05 11/08/18 06:05 White Blood Count 5.7 x10^3/uL (4.0-11.0) Red Blood Count 3.04 x10^6/uL (4.30-5.70) Hemoglobin 6.7 g/dL (13.0-17.5) 7.2 g/dL (13.0-17.5) Hematocrit 21.5 % (39.0-53.0) 23.4 % (39.0-53.0) Mean Corpuscular Volume 71 fL (79-100) Mean Corpuscular Hemoglobin 22 pg (25-35) Mean Corpuscular Hemoglobin Concent 31 g/dL (31-37) 31 g/dL (31-37) Red Cell Distribution Width 20.1 % (11.5-14.5) Platelet Count 180 x10^3/uL (140-400) Neutrophils (%) (Auto) 94 % (31-73) Lymphocytes (%) (Auto) 2 % (24-48) Monocytes (%) (Auto) 4 % (0-9) Eosinophils (%) (Auto) 0 % (0-3) Basophils (%) (Auto) 0 % (0-3) Neutrophils # (Auto) 5.3 x10^3/uL (1.8-7.7) Lymphocytes # (Auto) 0.1 x10^3/uL (1.0-4.8) Monocytes # (Auto) 0.2 x10^3/uL (0.0-1.1) Eosinophils # (Auto) 0.0 x10^3/uL (0.0-0.7) Basophils # (Auto) 0.0 x10^3/uL (0.0-0.2) Sodium Level 140 mmol/L (136-145) Potassium Level 4.2 mmol/L (3.5-5.1) Chloride Level 102 mmol/L (98-107) Carbon Dioxide Level 32 mmol/L (21-32) Anion Gap 6 (6-14) Blood Urea Nitrogen 12 mg/dL (8-26) Creatinine 0.7 mg/dL (0.7-1.3) Estimated GFR (Cockcroft-Gault) 139.7 BUN/Creatinine Ratio 17 (6-20) Glucose Level 158 mg/dL (70-99) Calcium Level 8.8 mg/dL (8.5-10.1) Total Bilirubin 0.3 mg/dL (0.2-1.0) Aspartate Amino Transf (AST/SGOT) 11 U/L (15-37) Alanine Aminotransferase (ALT/SGPT) 17 U/L (16-63) Alkaline Phosphatase 72 U/L (46-116) Total Protein 5.7 g/dL (6.4-8.2) Albumin 3.0 g/dL (3.4-5.0) Albumin/Globulin Ratio 1.1 (1.0-1.7) Laboratory Tests Test 11/07/18 11:25 11/07/18 17:05 11/07/18 20:56 11/08/18 04:05 Glucose (Fingerstick) 138 mg/dL (70-99) 135 mg/dL (70-99) 142 mg/dL (70-99) White Blood Count 5.7 x10^3/uL (4.0-11.0) Red Blood Count 3.04 x10^6/uL (4.30-5.70) Hemoglobin 6.7 g/dL (13.0-17.5) Hematocrit 21.5 % (39.0-53.0) Mean Corpuscular Volume 71 fL (79-100) Mean Corpuscular Hemoglobin 22 pg (25-35) Mean Corpuscular Hemoglobin Concent 31 g/dL (31-37) Red Cell Distribution Width 20.1 % (11.5-14.5) Platelet Count 180 x10^3/uL (140-400) Neutrophils (%) (Auto) 94 % (31-73) Lymphocytes (%) (Auto) 2 % (24-48) Monocytes (%) (Auto) 4 % (0-9) Eosinophils (%) (Auto) 0 % (0-3) Basophils (%) (Auto) 0 % (0-3) Neutrophils # (Auto) 5.3 x10^3/uL (1.8-7.7) Lymphocytes # (Auto) 0.1 x10^3/uL (1.0-4.8) Monocytes # (Auto) 0.2 x10^3/uL (0.0-1.1) Eosinophils # (Auto) 0.0 x10^3/uL (0.0-0.7) Basophils # (Auto) 0.0 x10^3/uL (0.0-0.2) Sodium Level 140 mmol/L (136-145) Potassium Level 4.2 mmol/L (3.5-5.1) Chloride Level 102 mmol/L (98-107) Carbon Dioxide Level 32 mmol/L (21-32) Anion Gap 6 (6-14) Blood Urea Nitrogen 12 mg/dL (8-26) Creatinine 0.7 mg/dL (0.7-1.3) Estimated GFR (Cockcroft-Gault) 139.7 BUN/Creatinine Ratio 17 (6-20) Glucose Level 158 mg/dL (70-99) Calcium Level 8.8 mg/dL (8.5-10.1) Total Bilirubin 0.3 mg/dL (0.2-1.0) Aspartate Amino Transf (AST/SGOT) 11 U/L (15-37) Alanine Aminotransferase (ALT/SGPT) 17 U/L (16-63) Alkaline Phosphatase 72 U/L (46-116) Total Protein 5.7 g/dL (6.4-8.2) Albumin 3.0 g/dL (3.4-5.0) Albumin/Globulin Ratio 1.1 (1.0-1.7) Test 11/08/18 06:05 Hemoglobin 7.2 g/dL (13.0-17.5) Hematocrit 23.4 % (39.0-53.0) Mean Corpuscular Hemoglobin Concent 31 g/dL (31-37) Medications Current Medications Albuterol/ Ipratropium (Duoneb) 3 ml 1X ONCE NEB Last administered on 11/04/18at 18:55; Start 11/04/18 at 18:45; Stop 11/04/18 at 18:46; Status DC Methylprednisolone Sodium Succinate (SOLU-Medrol 125MG VIAL) 125 mg 1X ONCE IV ; Start 11/04/18 at 18:45; Stop 11/04/18 at 19:45; Status DC Methylprednisolone Sodium Succinate (SOLU-Medrol 125MG VIAL) 125 mg 1X ONCE IM Last administered on 11/04/18at 19:54; Start 11/04/18 at 19:45; Stop 11/04/18 at 19:48; Status DC Levofloxacin/ Dextrose 150 ml @ 100 mls/hr 1X ONCE IV Last administered on 11/04/18at 20:46; Start 11/04/18 at 20:30; Stop 11/04/18 at 21:59; Status DC Ondansetron HCl (Zofran) 4 mg PRN Q8HRS PRN IV NAUSEA/VOMITING; Start 11/04/18 at 20:30; Stop 11/05/18 at 20:29; Status DC Acetaminophen (Tylenol) 650 mg PRN Q4HRS PRN PO FEVER; Start 11/04/18 at 20:30; Stop 11/05/18 at 20:29; Status Cancel Albuterol/ Ipratropium (Duoneb) 3 ml RTQID NEB ; Start 11/05/18 at 08:00; Stop 11/04/18 at 21:33; Status DC Methylprednisolone Sodium Succinate (SOLU-Medrol 125MG VIAL) 125 mg Q12HR IV Last administered on 11/07/18at 08:08; Start 11/05/18 at 09:00; Stop 11/07/18 at 12:50; Status DC Vancomycin HCl (Vanco Per Pharmacy) 1 each PRN DAILY PRN MC SEE COMMENTS Last administered on 11/05/18at 14:14; Start 11/04/18 at 21:30; Stop 11/05/18 at 14:48; Status DC Piperacillin Sod/ Tazobactam Sod (Zosyn Per Pharmacy) 1 each PRN DAILY PRN MC SEE COMMENTS; Start 11/04/18 at 22:00; Stop 11/05/18 at 14:48; Status DC Polyethylene Glycol (miraLAX PACKET) 17 gm DAILY PO ; Start 11/05/18 at 09:00; Stop 11/06/18 at 09:22; Status DC Docusate Sodium (Colace) 100 mg DAILY PO Last administered on 11/07/18at 08:07; Start 11/05/18 at 09:00 Albuterol/ Ipratropium (Duoneb) 3 ml Q4HRS W/A NEB Last administered on 11/05/18at 15:12; Start 11/04/18 at 22:00; Stop 11/05/18 at 19:00; Status DC Albuterol Sulfate (Ventolin Neb Soln) 2.5 mg PRN QID PRN NEB dyspnea Last administered on 11/08/18at 04:37; Start 11/04/18 at 21:45 Vancomycin HCl 1.5 gm/Sodium Chloride 500 ml @ 250 mls/hr 1X ONCE IV Last administered on 11/04/18 23:09; Start 11/04/18 at 22:00; Stop 11/04/18 at 23:59; Status DC Piperacillin Sod/ Tazobactam Sod 3.375 gm/Sodium Chloride 50 ml @ 100 mls/hr Q6HRS IV Last administered on 11/05/18 12:24; Start 11/05/18 at 00:00; Stop 11/05/18 at 14:49; Status DC Acetaminophen (Tylenol) 650 mg PRN Q4HRS PRN PO TEMP OVER 100.4F OR MILD PAIN; Start 11/04/18 at 22:45 Aspirin (Ecotrin) 81 mg DAILYWBKFT PO Last administered on 11/07/18 08:06; Start 11/05/18 at 08:00 Lorazepam (Ativan) 1 mg PRN BID PRN PO ANXIETY / AGITATION Last administered on 11/06/18 19:58; Start 11/04/18 at 22:45 Metformin HCl (Glucophage) 500 mg DAILYWBKFT PO Last administered on 11/07/18 08:07; Start 11/05/18 at 08:00 Metoclopramide HCl (Reglan) 5 mg QID PO Last administered on 11/07/18 21:00; Start 11/05/18 at 09:00 Montelukast Sodium (Singulair) 10 mg QHS PO Last administered on 11/07/18 21:00; Start 11/05/18 at 21:00 Oxycodone/ Acetaminophen (Percocet 5/325) 1 tab PRN Q6HRS PRN PO SEVERE PAIN Last administered on 11/07/18 17:31; Start 11/04/18 at 22:45 Polyethylene Glycol (miraLAX PACKET) 17 gm BID PO Last administered on 10:21; Start 11/05/18 at 09:00 Prednisone (Prednisone) 10 mg DAILY PO ; Start 11/05/18 at 09:00; Status UNV Tizanidine HCl (Zanaflex) 4 mg PRN TID PRN PO MUSCLE SPASMS Last administered on 11/05/18 09:33; Start 11/04/18 at 22:45 Azithromycin (Zithromax) 250 mg DAILY PO Last administered on 11/07/18 08:07; Start 11/05/18 at 09:00 Nystatin (Nystatin Oral Susp) 5 ml [id number] Last administered on 11/07/18at 21:00; Start 11/05/18 at 09:00 Tramadol HCl (Ultram) 50 mg PRN Q6HRS PRN PO MODERATE PAIN Last administered on 11/06/18 09:26; Start 11/04/18 at 23:00 Pantoprazole Sodium (Protonix) 20 mg DAILYAC PO Last administered on 11/07/18at 08:06; Start 11/05/18 at 07:30 Vancomycin HCl 1 gm/Sodium Chloride 250 ml @ 250 mls/hr Q12H IV Last administered on 11/05/18at 09:33; Start 11/05/18 at 10:00; Stop 11/05/18 at 14:49; Status DC Vancomycin HCl (Vancomycin Trough Level) 1 each 1X ONCE MC ; Start 11/06/18 at 09:30; Stop 11/05/18 at 14:49; Status DC Metoclopramide HCl (Reglan) 10 mg STK-MED ONCE .ROUTE ; Start 11/05/18 at 07:28; Stop 11/05/18 at 07:28; Status DC Lactobacillus Rhamnosus (Culturelle) 1 cap BID PO Last administered on 11/07/18at 21:00; Start 11/05/18 at 15:00 Albuterol/ Ipratropium (Duoneb) 3 ml RTQID NEB Last administered on 11/07/18at 2 0:07; Start 11/05/18 at 20:00 Methylprednisolone Sodium Succinate (SOLU-Medrol 125MG VIAL) 60 mg Q12HR IV Last administered on 11/07/18at 21:00; Start 11/07/18 at 21:00 Active Scripts Active Miralax (Polyethylene Glycol 3350) 119 Gm Powder 17 Gm PO BID Prednisone (Prednisone) 10 Mg Tablet 10 Mg PO DAILY 5 Days Nystatin 100,000 Unit/1 Ml Oral.susp 5 Ml SWSW [id number] 5 Days Duoneb 0.5-3(2.5) Mg/3 Ml (Albuterol/Ipratropium) 3 Ml Ampul.neb 3 Ml NEB QID Tessalon Perle (Benzonatate) 100 Mg Capsule 1 Cap PO TID Montelukast Sodium Tablet (Montelukast Sodium) 10 Mg Tablet 10 Mg PO QHS Lidocaine PATCH (Lidocaine) 1 Each Adh..patch 1 Each TP DAILY 30 Days REMOVE AFTER 12 HOURS Ativan (Lorazepam) 1 Mg Tablet 1 Mg PO PRN BID PRN Humalog (Insulin Lispro) 100 Unit/1 Ml Insuln.pen 0 Units SQ TIDWMEALS 30 Days Aspirin Ec (Aspirin) 81 Mg Tablet.dr 81 Mg PO DAILYWBKFT 30 Days Cyclobenzaprine Hcl 5 Mg Tablet 5 Mg PO PRN TID PRN Tramadol Hcl 50 Mg Tablet 50 Mg PO PRN Q6HRS PRN 6 Days Guaifenesin 100 Mg/5 Ml Liquid 200 Mg PO PRN Q4HRS PRN 30 Days Tylenol (Acetaminophen) 325 Mg Tablet 650 Mg PO PRN Q4HRS PRN 10 Days Ventolin Hfa Inhaler (Albuterol Sulfate) 18 Gm Hfa.aer.ad 2 Puff INH Q4HRS Reglan (Metoclopramide Hcl) 10 Mg Tablet 0.5 Tab PO QID 30 Days Reported Tizanidine Hcl 4 Mg Tablet 4 Mg PO TID PRN Percocet 5-325 Mg Tablet (Oxycodone/Acetaminophen) 1 Each Tablet 1 Tab PO PRN Q6HRS PRN Azithromycin Tablet (Azithromycin) 250 Mg Tablet 250 Mg PO DAILY Xarelto (Rivaroxaban) 20 Mg Tablet 20 Mg PO DAILY Metformin Hcl 500 Mg Tablet 500 Mg PO DAILYWBKFT Pulmicort (Budesonide) 0.25 Mg/2 Ml Ampul.neb 1 Vial NEB BID Albuterol Sulfate Neb Soln (Albuterol Sulfate) 2.5 Mg/3 Ml Vial.neb 1 Vial NEB PRN Q2HR PRN Furosemide 40 Mg Tablet 1 Tab PO DAILY Vitamin D3 (Cholecalciferol (Vitamin D3)) 5,000 Unit Tablet 5,000 Unit PO DAILY Potassium Chloride 20 Meq Tablet.er 20 Meq PO DAILY Protonix (Pantoprazole Sodium) 20 Mg Tablet. 1 Tab PO DAILY Atorvastatin Calcium 10 Mg Tablet 10 Mg PO HS Symbicort 160-4.5 Mcg Inhaler (Budesonide/Formoterol Fumarate) 10.2 Gm Hfa.aer.ad 2 Puff IH BID Vitals/I & O Vital Sign - Last 24 Hours 9/2611/07/18 11/07/18 11/07/18 08:00 08:10 09:15 11:00 Temp 98.1 98.1 Pulse 104 Resp 20 19 18 B/P (MAP) 131/69 (89) Pulse Ox 99 99 98 O2 Delivery Nasal Cannula Nasal Cannula Nasal Cannula Nasal Cannula O2 Flow Rate 3.0 3.0 3.0 3.0 11/07/18 11/07/18 11/07/18 11/07/18 11:28 15:00 15:14 17:31 Temp 99.0 99.0 Pulse 88 Resp 18 20 B/P (MAP) 125/68 (87) Pulse Ox 98 98 O2 Delivery Nasal Cannula Room Air Nasal Cannula Nasal Cannula O2 Flow Rate 3.0 3.0 3.0 11/07/18 11/07/18 11/07/18 11/07/18 19:12 19:13 19:13 20:05 Temp 99.3 99.3 Pulse 117 Resp 20 B/P (MAP) 144/80 (101) Pulse Ox 97 O2 Delivery Nasal Cannula Nasal Cannula Nasal Cannula Nasal Cannula O2 Flow Rate 3.0 3.0 3.0 3.0 11/07/18 11/08/18 23:29 04:36 Temp 98.7 98.7 Pulse 86 Resp 20 B/P (MAP) 120/69 (86) Pulse Ox 97 O2 Delivery Nasal Cannula Nasal Cannula O2 Flow Rate 3.0 3.0 Intake and Output 11/07/18 11/07/18 11/08/18 15:00 23:00 07:00 Intake Total 350 ml 350 ml Output Total 600 ml Balance -600 ml 350 ml 350 ml TOMAS BAIG MD Nov 08, 2018 07:32
[2018-11-08] MEDS: IPRATRPIUM/ALBUTEROL 0.5/2.5MG 3 ML NEBU. NEB SCH ×4 (07:59→19:28)
[2018-11-08] MEDS: metFORMIN 500 MG TABLET PO SCH (08:16)
[2018-11-08] MEDS: ASPIRIN ENTERIC COATED 81 MG TABLET.DR. PO SCH (08:16)
[2018-11-08] MEDS: LACTOBACILLUS RHAMNOSUS GG 1 CAPSULE. PO SCH ×2 (08:17→21:00)
[2018-11-08] MEDS: AZITHROMYCIN 250 MG TABLET. PO SCH (08:17)
[2018-11-08] MEDS: PANTOPRAZOLE 40 MG TABLET.DR. PO SCH (08:17)
[2018-11-08] MEDS: DOCUSATE SODIUM 100 MG CAPSULE. PO SCH (08:17)
[2018-11-08] MEDS: METOCLOPRAMIDE 10 MG TABLET. PO SCH ×4 (08:18→21:02)
[2018-11-08] MEDS: NYSTATIN 100,000 UNITS/ML 5 ML ORAL.SUSP. SWSW SCH ×4 (08:18→21:03)
[2018-11-08] MEDS: methylPREDNISolone SOD SUCC PF 125 MG/2 ML VIAL. IV SCH ×2 (08:18→21:01)
[2018-11-08] MEDS: oxyCODONE/APAP 5/325 1 TAB TABLET PO PRN (08:23)
[2018-11-08] MEDS: POLYETHYLENE GLYCOL 3350 17 GM PACKET. PO SCH ×2 (10:51→21:00)
[2018-11-08 11:00] VITALS: BP 121/67
--- NOTE | 2018-11-08 11:36 | PDOC ---
PULMONARY PROGRESS NOTES Subjective dry cough, no increase soa Vitals Vital Signs Date Time Temp Pulse Resp B/P (MAP) Pulse Ox O2 Delivery O2 Flow Rate FiO2 11/08/18 08:23 19 98 Nasal Cannula 3.0 11/08/18 07:00 98.1 81 139/76 (97) 98.1 General: Alert, Oriented X4, No acute distress Lungs: Other Cardiovascular: S1, S2 Abdomen: Soft, Non-tender Neuro Exam: Alert Extremities: Other Labs Laboratory Tests Test 11/06/18 12:41 11/06/18 17:03 11/06/18 20:57 11/07/18 07:31 Glucose (Fingerstick) 157 mg/dL (70-99) 159 mg/dL (70-99) 129 mg/dL (70-99) 108 mg/dL (70-99) Test 11/07/18 11:25 11/07/18 17:05 11/07/18 20:56 11/08/18 04:05 Glucose (Fingerstick) 138 mg/dL (70-99) 135 mg/dL (70-99) 142 mg/dL (70-99) White Blood Count 5.7 x10^3/uL (4.0-11.0) Red Blood Count 3.04 x10^6/uL (4.30-5.70) Hemoglobin 6.7 g/dL (13.0-17.5) Hematocrit 21.5 % (39.0-53.0) Mean Corpuscular Volume 71 fL (79-100) Mean Corpuscular Hemoglobin 22 pg (25-35) Mean Corpuscular Hemoglobin Concent 31 g/dL (31-37) Red Cell Distribution Width 20.1 % (11.5-14.5) Platelet Count 180 x10^3/uL (140-400) Neutrophils (%) (Auto) 94 % (31-73) Lymphocytes (%) (Auto) 2 % (24-48) Monocytes (%) (Auto) 4 % (0-9) Eosinophils (%) (Auto) 0 % (0-3) Basophils (%) (Auto) 0 % (0-3) Neutrophils # (Auto) 5.3 x10^3/uL (1.8-7.7) Lymphocytes # (Auto) 0.1 x10^3/uL (1.0-4.8) Monocytes # (Auto) 0.2 x10^3/uL (0.0-1.1) Eosinophils # (Auto) 0.0 x10^3/uL (0.0-0.7) Basophils # (Auto) 0.0 x10^3/uL (0.0-0.2) Sodium Level 140 mmol/L (136-145) Potassium Level 4.2 mmol/L (3.5-5.1) Chloride Level 102 mmol/L (98-107) Carbon Dioxide Level 32 mmol/L (21-32) Anion Gap 6 (6-14) Blood Urea Nitrogen 12 mg/dL (8-26) Creatinine 0.7 mg/dL (0.7-1.3) Estimated GFR (Cockcroft-Gault) 139.7 BUN/Creatinine Ratio 17 (6-20) Glucose Level 158 mg/dL (70-99) Calcium Level 8.8 mg/dL (8.5-10.1) Total Bilirubin 0.3 mg/dL (0.2-1.0) Aspartate Amino Transf (AST/SGOT) 11 U/L (15-37) Alanine Aminotransferase (ALT/SGPT) 17 U/L (16-63) Alkaline Phosphatase 72 U/L (46-116) Total Protein 5.7 g/dL (6.4-8.2) Albumin 3.0 g/dL (3.4-5.0) Albumin/Globulin Ratio 1.1 (1.0-1.7) Test 11/08/18 06:05 11/08/18 07:14 Hemoglobin 7.2 g/dL (13.0-17.5) Hematocrit 23.4 % (39.0-53.0) Mean Corpuscular Hemoglobin Concent 31 g/dL (31-37) Glucose (Fingerstick) 131 mg/dL (70-99) Laboratory Tests Test 11/07/18 17:05 11/07/18 20:56 11/08/18 04:05 11/08/18 06:05 Glucose (Fingerstick) 135 mg/dL (70-99) 142 mg/dL (70-99) White Blood Count 5.7 x10^3/uL (4.0-11.0) Red Blood Count 3.04 x10^6/uL (4.30-5.70) Hemoglobin 6.7 g/dL (13.0-17.5) 7.2 g/dL (13.0-17.5) Hematocrit 21.5 % (39.0-53.0) 23.4 % (39.0-53.0) Mean Corpuscular Volume 71 fL (79-100) Mean Corpuscular Hemoglobin 22 pg (25-35) Mean Corpuscular Hemoglobin Concent 31 g/dL (31-37) 31 g/dL (31-37) Red Cell Distribution Width 20.1 % (11.5-14.5) Platelet Count 180 x10^3/uL (140-400) Neutrophils (%) (Auto) 94 % (31-73) Lymphocytes (%) (Auto) 2 % (24-48) Monocytes (%) (Auto) 4 % (0-9) Eosinophils (%) (Auto) 0 % (0-3) Basophils (%) (Auto) 0 % (0-3) Neutrophils # (Auto) 5.3 x10^3/uL (1.8-7.7) Lymphocytes # (Auto) 0.1 x10^3/uL (1.0-4.8) Monocytes # (Auto) 0.2 x10^3/uL (0.0-1.1) Eosinophils # (Auto) 0.0 x10^3/uL (0.0-0.7) Basophils # (Auto) 0.0 x10^3/uL (0.0-0.2) Sodium Level 140 mmol/L (136-145) Potassium Level 4.2 mmol/L (3.5-5.1) Chloride Level 102 mmol/L (98-107) Carbon Dioxide Level 32 mmol/L (21-32) Anion Gap 6 (6-14) Blood Urea Nitrogen 12 mg/dL (8-26) Creatinine 0.7 mg/dL (0.7-1.3) Estimated GFR (Cockcroft-Gault) 139.7 BUN/Creatinine Ratio 17 (6-20) Glucose Level 158 mg/dL (70-99) Calcium Level 8.8 mg/dL (8.5-10.1) Total Bilirubin 0.3 mg/dL (0.2-1.0) Aspartate Amino Transf (AST/SGOT) 11 U/L (15-37) Alanine Aminotransferase (ALT/SGPT) 17 U/L (16-63) Alkaline Phosphatase 72 U/L (46-116) Total Protein 5.7 g/dL (6.4-8.2) Albumin 3.0 g/dL (3.4-5.0) Albumin/Globulin Ratio 1.1 (1.0-1.7) Test 11/08/18 07:14 Glucose (Fingerstick) 131 mg/dL (70-99) Medications Active Scripts Medications Dose Route/Sig Max Daily Dose Days Date Category Dose Instructions Tizanidine Hcl 4 Mg Tablet 4 Mg PO TID PRN 11/04/18 Reported Percocet 5-325 Mg Tablet (Oxycodone/Acetaminophen) 1 Each Tablet 1 Tab PO PRN Q6HRS PRN 11/04/18 Reported Azithromycin Tablet (Azithromycin) 250 Mg Tablet 250 Mg PO DAILY 11/04/18 Reported Miralax (Polyethylene Glycol 3350) 119 Gm Powder 17 Gm PO BID 11/03/18 Rx Prednisone (Prednisone) 10 Mg Tablet 10 Mg PO DAILY 5 10/31/18 Rx Nystatin 100,000 Unit/1 Ml Oral.susp 5 Ml SWSW [id number] 5 10/31/18 Rx Duoneb 0.5-3(2.5) Mg/3 Ml (Albuterol/Ipratropium) 3 Ml Ampul.neb 3 Ml NEB QID 10/28/18 Rx Tessalon Perle (Benzonatate) 100 Mg Capsule 1 Cap PO TID 10/28/18 Rx Montelukast Sodium Tablet (Montelukast Sodium) 10 Mg Tablet 10 Mg PO QHS 10/28/18 Rx Lidocaine PATCH (Lidocaine) 1 Each Adh..patch 1 Each TP DAILY 30 09/11/18 Rx REMOVE AFTER 12 HOURS Ativan (Lorazepam) 1 Mg Tablet 1 Mg PO PRN BID PRN 09/11/18 Rx Xarelto (Rivaroxaban) 20 Mg Tablet 20 Mg PO DAILY 09/09/18 Reported Metformin Hcl 500 Mg Tablet 500 Mg PO DAILYWBK09/09/18 Reported Humalog (Insulin Lispro) 100 Unit/1 Ml Insuln.pen 0 Units SQ TIDWMEALS 30 08/28/18 Rx Aspirin Ec (Aspirin) 81 Mg Tablet. 81 Mg PO DAILYWBKFT 30 08/28/18 Rx Pulmicort (Budesonide) 0.25 Mg/2 Ml Ampul.neb 1 Vial NEB BID 08/25/18 Reported Albuterol Sulfate Neb Soln (Albuterol Sulfate) 2.5 Mg/3 Ml Vial.neb 1 Vial NEB PRN Q2HR PRN 08/25/18 Reported Cyclobenzaprine Hcl 5 Mg Tablet 5 Mg PO PRN TID PRN 08/20/18 Rx Tramadol Hcl 50 Mg Tablet 50 Mg PO PRN Q6HRS PRN 6 07/12/18 Rx Furosemide 40 Mg Tablet 1 Tab PO DAILY 06/20/18 Reported Guaifenesin 100 Mg/5 Ml Liquid 200 Mg PO PRN Q4HRS PRN 30 05/30/18 Rx Tylenol (Acetaminophen) 325 Mg Tablet 650 Mg PO PRN Q4HRS PRN 10 05/30/18 Rx Ventolin Hfa Inhaler (Albuterol Sulfate) 18 Gm Hfa.aer.ad 2 Puff INH Q4HRS 05/10/18 Rx Vitamin D3 (Cholecalciferol (Vitamin D3)) 5,000 Unit Tablet 5,000 Unit PO DAILY 03/15/18 Reported Reglan (Metoclopramide Hcl) 10 Mg Tablet 0.5 Tab PO QID 30 02/14/18 Rx Potassium Chloride 20 Meq Tablet.er 20 Meq PO DAILY 01/13/18 Reported Protonix (Pantoprazole Sodium) 20 Mg Tablet. 1 Tab PO DAILY 11/18/17 Reported Atorvastatin Calcium 10 Mg Tablet 10 Mg PO HS 08/21/17 Reported Symbicort 160-4.5 Mcg Inhaler (Budesonide/Formoterol Fumarate) 10.2 Gm Hfa.aer.ad 2 Puff IH BID 09/21/15 Reported Impression . 1. Dyspnea in a patient with end-stage chronic obstructive pulmonary disease and chronic hypoxic respiratory failure. Now comes in with exacerbation of chronic obstructive pulmonary disease triggered by cold temperature when he visited [facility]. 2. No signs of acute infection. 3. Stable, unchanged chest x-ray with extensive large bullous lung disease on the left side. 4. History of pulmonary embolism, which subsequently resolved on followup scans. Currently, on Xarelto. Plan . 1. Discussed with the patient and long term care social worker. Most of his readmissions are related to social issues and end stage COPD. I would recommend that the patient is not capable of living independently at home and should be at the [facility]. financial services manager to help regarding that. 2. In the meantime, continue present bronchodilators. 3. Continue steroids with taper 4. PO abx 5. Continue Xarelto, but monitor hemoglobin closely. If anemia continues to be an issue, Xarelto can be dc'd as PE has resolved. VIN MEAD MD Nov 08, 2018 11:36
--- NOTE | 2018-11-08 13:51 | NUR ---
SW following pt. Spoke with pt again, still worried about having clothes to wear at SNU. Explored about getting his family to bring his clothes- he states he is trying but his brother does not answer his phone. SW discussed SW can attempt to eval him for SNU but pt declined. PT/OT recommends HH, pt declined, states he is never home anyway. Encouraged pt to consider LTC placement and pt states he is not ready for that. Physician notified.
[2018-11-08 15:00] VITALS: BP 108/70
[2018-11-08] MEDS ORDERED: MAGNESIUM HYDROXIDE 2,400 MG/30 ML ORAL.SUSP. PO PRN (18:45)
[2018-11-08 19:45] VITALS: BP 123/75
[2018-11-08] MEDS: TEMAZEPAM 7.5 MG CAPSULE PO PRN (21:02)
[2018-11-08] MEDS: RIVAROXABAN 10 MG TABLET. PO SCH (21:02)
[2018-11-08] MEDS: BENZONATATE 100 MG CAPSULE. PO SCH (21:02)
[2018-11-08] MEDS: MONTELUKAST SODIUM 10 MG TABLET. PO SCH (21:02)
[2018-11-08 23:30] VITALS: BP 108/62
[2018-11-09] VITALS (7 sets, daily range): BP systolic 114–134; BP diastolic 63–85
[2018-11-09] MEDS: ALBUTEROL SULFATE 2.5 MG/3 ML NEBU. NEB PRN (03:21)
[2018-11-09] MEDS: IPRATRPIUM/ALBUTEROL 0.5/2.5MG 3 ML NEBU. NEB SCH ×4 (07:27→19:16)
--- NOTE | 2018-11-09 08:10 | PDOC ---
PULMONARY PROGRESS NOTES Subjective sob better, has cough, has nasal congestion Vitals Vital Signs Date Time Temp Pulse Resp B/P (MAP) Pulse Ox O2 Delivery O2 Flow Rate FiO2 11/09/18 07:27 100 Nasal Cannula 3.0 11/09/18 03:30 98.3 76 20 114/63 (80) 98.3 General: Alert, Oriented X4, No acute distress Lungs: Crackles, Other Cardiovascular: S1, S2 Abdomen: Soft, Non-tender Neuro Exam: Alert Extremities: Other Skin: Warm Labs Laboratory Tests Test 11/07/18 11:25 11/07/18 17:05 11/07/18 20:56 11/08/18 04:05 Glucose (Fingerstick) 138 mg/dL (70-99) 135 mg/dL (70-99) 142 mg/dL (70-99) White Blood Count 5.7 x10^3/uL (4.0-11.0) Red Blood Count 3.04 x10^6/uL (4.30-5.70) Hemoglobin 6.7 g/dL (13.0-17.5) Hematocrit 21.5 % (39.0-53.0) Mean Corpuscular Volume 71 fL (79-100) Mean Corpuscular Hemoglobin 22 pg (25-35) Mean Corpuscular Hemoglobin Concent 31 g/dL (31-37) Red Cell Distribution Width 20.1 % (11.5-14.5) Platelet Count 180 x10^3/uL (140-400) Neutrophils (%) (Auto) 94 % (31-73) Lymphocytes (%) (Auto) 2 % (24-48) Monocytes (%) (Auto) 4 % (0-9) Eosinophils (%) (Auto) 0 % (0-3) Basophils (%) (Auto) 0 % (0-3) Neutrophils # (Auto) 5.3 x10^3/uL (1.8-7.7) Lymphocytes # (Auto) 0.1 x10^3/uL (1.0-4.8) Monocytes # (Auto) 0.2 x10^3/uL (0.0-1.1) Eosinophils # (Auto) 0.0 x10^3/uL (0.0-0.7) Basophils # (Auto) 0.0 x10^3/uL (0.0-0.2) Sodium Level 140 mmol/L (136-145) Potassium Level 4.2 mmol/L (3.5-5.1) Chloride Level 102 mmol/L (98-107) Carbon Dioxide Level 32 mmol/L (21-32) Anion Gap 6 (6-14) Blood Urea Nitrogen 12 mg/dL (8-26) Creatinine 0.7 mg/dL (0.7-1.3) Estimated GFR (Cockcroft-Gault) 139.7 BUN/Creatinine Ratio 17 (6-20) Glucose Level 158 mg/dL (70-99) Calcium Level 8.8 mg/dL (8.5-10.1) Total Bilirubin 0.3 mg/dL (0.2-1.0) Aspartate Amino Transf (AST/SGOT) 11 U/L (15-37) Alanine Aminotransferase (ALT/SGPT) 17 U/L (16-63) Alkaline Phosphatase 72 U/L (46-116) Total Protein 5.7 g/dL (6.4-8.2) Albumin 3.0 g/dL (3.4-5.0) Albumin/Globulin Ratio 1.1 (1.0-1.7) Test 11/08/18 06:05 11/08/18 07:14 11/08/18 11:49 11/08/18 17:40 Hemoglobin 7.2 g/dL (13.0-17.5) Hematocrit 23.4 % (39.0-53.0) Mean Corpuscular Hemoglobin Concent 31 g/dL (31-37) Glucose (Fingerstick) 131 mg/dL (70-99) 145 mg/dL (70-99) 159 mg/dL (70-99) Test 11/08/18 20:51 Glucose (Fingerstick) 166 mg/dL (70-99) Laboratory Tests Test 11/08/18 11:49 11/08/18 17:40 11/08/18 20:51 Glucose (Fingerstick) 145 mg/dL (70-99) 159 mg/dL (70-99) 166 mg/dL (70-99) Medications Active Scripts Medications Dose Route/Sig Max Daily Dose Days Date Category Dose Instructions Tizanidine Hcl 4 Mg Tablet 4 Mg PO TID PRN 11/04/18 Reported Percocet 5-325 Mg Tablet (Oxycodone/Acetaminophen) 1 Each Tablet 1 Tab PO PRN Q6HRS PRN 11/04/18 Reported Azithromycin Tablet (Azithromycin) 250 Mg Tablet 250 Mg PO DAILY 11/04/18 Reported Miralax (Polyethylene Glycol 3350) 119 Gm Powder 17 Gm PO BID 11/03/18 Rx Prednisone (Prednisone) 10 Mg Tablet 10 Mg PO DAILY 5 10/31/18 Rx Nystatin 100,000 Unit/1 Ml Oral.susp 5 Ml SWSW [id number] 10/31/18 Rx Duoneb 0.5-3(2.5) Mg/3 Ml (Albuterol/Ipratropium) 3 Ml Ampul.neb 3 Ml NEB QID 10/28/18 Rx Tessalon Perle (Benzonatate) 100 Mg Capsule 1 Cap PO TID 10/28/18 Rx Montelukast Sodium Tablet (Montelukast Sodium) 10 Mg Tablet 10 Mg PO QHS 10/28/18 Rx Lidocaine PATCH (Lidocaine) 1 Each Adh..patch 1 Each TP DAILY 30 09/11/18 Rx REMOVE AFTER 12 HOURS Ativan (Lorazepam) 1 Mg Tablet 1 Mg PO PRN BID PRN 09/11/18 Rx Xarelto (Rivaroxaban) 20 Mg Tablet 20 Mg PO DAILY 09/09/18 Reported Metformin Hcl 500 Mg Tablet 500 Mg PO DAILYWBKFT 09/09/18 Reported Humalog (Insulin Lispro) 100 Unit/1 Ml Insuln.pen 0 Units SQ TIDWMEALS 30 08/28/18 Rx Aspirin Ec (Aspirin) 81 Mg Tablet.dr 81 Mg PO DAILYWBKFT 30 08/28/18 Rx Pulmicort (Budesonide) 0.25 Mg/2 Ml Ampul.neb 1 Vial NEB BID 08/25/18 Reported Albuterol Sulfate Neb Soln (Albuterol Sulfate) 2.5 Mg/3 Ml Vial.neb 1 Vial NEB PRN Q2HR PRN 08/25/18 Reported Cyclobenzaprine Hcl 5 Mg Tablet 5 Mg PO PRN TID PRN 08/20/18 Rx Tramadol Hcl 50 Mg Tablet 50 Mg PO PRN Q6HRS PRN 6 07/12/18 Rx Furosemide 40 Mg Tablet 1 Tab PO DAILY 06/20/18 Reported Guaifenesin 100 Mg/5 Ml Liquid 200 Mg PO PRN Q4HRS PRN 30 05/30/18 Rx Tylenol (Acetaminophen) 325 Mg Tablet 650 Mg PO PRN Q4HRS PRN 10 05/30/18 Rx Ventolin Hfa Inhaler (Albuterol Sulfate) 18 Gm Hfa.aer.ad 2 Puff INH Q4HRS 05/10/18 Rx Vitamin D3 (Cholecalciferol (Vitamin D3)) 5,000 Unit Tablet 5,000 Unit PO DAILY 03/15/18 Reported Reglan (Metoclopramide Hcl) 10 Mg Tablet 0.5 Tab PO QID 30 02/14/18 Rx Potassium Chloride 20 Meq Tablet.er 20 Meq PO DAILY 01/13/18 Reported Protonix (Pantoprazole Sodium) 20 Mg Tablet.dr 1 Tab PO DAILY 11/18/17 Reported Atorvastatin Calcium 10 Mg Tablet 10 Mg PO HS 08/21/17 Reported Symbicort 160-4.5 Mcg Inhaler (Budesonide/Formoterol Fumarate) 10.2 Gm Hfa.aer.ad 2 Puff IH BID 09/21/15 Reported Impression . 1. Dyspnea in a patient with end-stage chronic obstructive pulmonary disease and chronic hypoxic respiratory failure. Now comes in with exacerbation of chronic obstructive pulmonary disease triggered by cold temperature when he visited [facility]. 2. No signs of acute infection. 3. Stable, unchanged chest x-ray with extensive large bullous lung disease on the left side. 4. History of pulmonary embolism, which subsequently resolved on followup scans. Currently, on Xarelto. Plan . 1. dr vu Discussed with the patient and social worker health services. Most of his readmissions are related to social issues and end stage COPD. the patient is not capable of living independently at home and should be at the [facility] fitness services manager to help regarding that. 2. In the meantime, continue present bronchodilators. 3. change solumedrol to 40 bid 4. PO abx 5. Continue Xarelto, but monitor hemoglobin closely. If anemia continues to be an issue, Xarelto can be dc'd as PE has resolved. 6. add flonase for nasal congestion discussed w TAMAR Blue MD Nov 09, 2018 08:10
[2018-11-09] MEDS: POLYETHYLENE GLYCOL 3350 17 GM PACKET. PO SCH ×2 (08:42→08:46)
[2018-11-09] MEDS: METOCLOPRAMIDE 10 MG TABLET. PO SCH ×4 (08:42→21:36)
[2018-11-09] MEDS: metFORMIN 500 MG TABLET PO SCH (08:43)
[2018-11-09] MEDS: LACTOBACILLUS RHAMNOSUS GG 1 CAPSULE. PO SCH ×2 (08:43→21:35)
[2018-11-09] MEDS: methylPREDNISolone SOD SUCC PF 40 MG/ML VIAL. IV SCH ×2 (08:43→21:36)
[2018-11-09] MEDS: NYSTATIN 100,000 UNITS/ML 5 ML ORAL.SUSP. SWSW SCH ×4 (08:43→21:35)
[2018-11-09] MEDS: BENZONATATE 100 MG CAPSULE. PO SCH ×3 (08:43→21:36)
[2018-11-09] MEDS: DOCUSATE SODIUM 100 MG CAPSULE. PO SCH (08:43)
[2018-11-09] MEDS: AZITHROMYCIN 250 MG TABLET. PO SCH (08:44)
[2018-11-09] MEDS: ASPIRIN ENTERIC COATED 81 MG TABLET.DR. PO SCH (08:44)
[2018-11-09] MEDS: PANTOPRAZOLE 40 MG TABLET.DR. PO SCH (08:44)
--- NOTE | 2018-11-09 08:44 | PDOC ---
PROGRESS NOTES Chief Complaint Chief Complaint sob better today. chronically on 2-3 liters of 02 History of Present Illness History of Present Illness IMPRESSION End Stage COPD with acute exacerbation - acute on chronic combined respiratory failure recent DC 3 days motorized [employer] , per pulm defer IV abx, continue IV steroids, nebs ON RECENT CT CHEST No acute intrathoracic, intra-abdominal, or intrapelvic process identified. Approximately 40 percent T8 vertebral body height loss is new from 09/08/2018 exam. Correlate for point tenderness in the region. MRI thoracic spine could be obtained for further evaluation if there is concern for acute fracture. 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 following with pulm UNDERWEIGHT patient is not capable of living independently at home and should be at the [facility]. but no housing is availabe, [employer] WORKING ON PLACEMENT, PT HOMELESS 28 min pt exam, chart review, > 50% of time spent with exam, chart review, pt care coordination Vitals Vitals Vital Signs Date Time Temp Pulse Resp B/P (MAP) Pulse Ox O2 Delivery O2 Flow Rate FiO2 11/09/18 07:27 100 Nasal Cannula 3.0 11/09/18 07:00 98.1 93 16 123/75 (91) 98.1 Physical Exam Physical Exam HENT: Normocephalic, atraumatic, bilateral external ears normal, oropharynx moist, no oral exudates, nose normal. [ Cardiovascular:Heart rate regular rhythm, no murmur [] Lungs & Thorax: Decreased breath sounds, occasional wheeze Abdomen: Bowel sounds normal, soft, no tenderness, no masses, no pulsatile masses. [] Skin: Warm, dry, no erythema, no rash. [] Extremities: No tenderness, no cyanosis, no edema. [] Neurologic: Alert and oriented X 3, no focal deficits noted. [] Psychologic: Affect normal, judgement POOR, mood normal. CAPILLARY REFILL < 2 SEC [] General: Alert, Oriented X3, Cooperative, No acute distress Heart: Regular rate Lungs: Crackles, Other Abdomen: Normal bowel sounds, Soft, No tenderness Extremities: No cyanosis Skin: No significant lesion Labs LABS Laboratory Tests Test 11/08/18 11:49 11/08/18 17:40 11/08/18 20:51 11/09/18 07:56 Glucose (Fingerstick) 145 mg/dL (70-99) 159 mg/dL (70-99) 166 mg/dL (70-99) 117 mg/dL (70-99) Assessment and Plan Assessmemt and Plan Problems Medical Problems: (1) Acute and chronic respiratory failure Status: Acute (2) Chronic respiratory failure Status: Chronic (3) Chronic respiratory failure with hypoxia Status: Chronic (4) COPD with exacerbation Status: Acute (5) Depression Status: Chronic (6) Dyspnea Status: Acute (7) Hypertension Status: Chronic (8) Right conjunctivitis Status: Acute (9) Tachycardia Status: Acute Comment Review of Relevant I have reviewed the following items franki (where applicable) has been applied. Labs Laboratory Tests Test 11/07/18 11:25 11/07/18 17:05 11/07/18 20:56 11/08/18 04:05 Glucose (Fingerstick) 138 mg/dL (70-99) 135 mg/dL (70-99) 142 mg/dL (70-99) White Blood Count 5.7 x10^3/uL (4.0-11.0) Red Blood Count 3.04 x10^6/uL (4.30-5.70) Hemoglobin 6.7 g/dL (13.0-17.5) Hematocrit 21.5 % (39.0-53.0) Mean Corpuscular Volume 71 fL (79-100) Mean Corpuscular Hemoglobin 22 pg (25-35) Mean Corpuscular Hemoglobin Concent 31 g/dL (31-37) Red Cell Distribution Width 20.1 % (11.5-14.5) Platelet Count 180 x10^3/uL (140-400) Neutrophils (%) (Auto) 94 % (31-73) Lymphocytes (%) (Auto) 2 % (24-48) Monocytes (%) (Auto) 4 % (0-9) Eosinophils (%) (Auto) 0 % (0-3) Basophils (%) (Auto) 0 % (0-3) Neutrophils # (Auto) 5.3 x10^3/uL (1.8-7.7) Lymphocytes # (Auto) 0.1 x10^3/uL (1.0-4.8) Monocytes # (Auto) 0.2 x10^3/uL (0.0-1.1) Eosinophils # (Auto) 0.0 x10^3/uL (0.0-0.7) Basophils # (Auto) 0.0 x10^3/uL (0.0-0.2) Sodium Level 140 mmol/L (136-145) Potassium Level 4.2 mmol/L (3.5-5.1) Chloride Level 102 mmol/L (98-107) Carbon Dioxide Level 32 mmol/L (21-32) Anion Gap 6 (6-14) Blood Urea Nitrogen 12 mg/dL (8-26) Creatinine 0.7 mg/dL (0.7-1.3) Estimated GFR (Cockcroft-Gault) 139.7 BUN/Creatinine Ratio 17 (6-20) Glucose Level 158 mg/dL (70-99) Calcium Level 8.8 mg/dL (8.5-10.1) Total Bilirubin 0.3 mg/dL (0.2-1.0) Aspartate Amino Transf (AST/SGOT) 11 U/L (15-37) Alanine Aminotransferase (ALT/SGPT) 17 U/L (16-63) Alkaline Phosphatase 72 U/L (46-116) Total Protein 5.7 g/dL (6.4-8.2) Albumin 3.0 g/dL (3.4-5.0) Albumin/Globulin Ratio 1.1 (1.0-1.7) Test 11/08/18 06:05 11/08/18 07:14 11/08/18 11:49 11/08/18 17:40 Hemoglobin 7.2 g/dL (13.0-17.5) Hematocrit 23.4 % (39.0-53.0) Mean Corpuscular Hemoglobin Concent 31 g/dL (31-37) Glucose (Fingerstick) 131 mg/dL (70-99) 145 mg/dL (70-99) 159 mg/dL (70-99) Test 11/08/18 20:51 11/09/18 07:56 Glucose (Fingerstick) 166 mg/dL (70-99) 117 mg/dL (70-99) Laboratory Tests Test 11/08/18 11:49 11/08/18 17:40 11/08/18 20:51 11/09/18 07:56 Glucose (Fingerstick) 145 mg/dL (70-99) 159 mg/dL (70-99) 166 mg/dL (70-99) 117 mg/dL (70-99) Medications Current Medications Albuterol/ Ipratropium (Duoneb) 3 ml 1X ONCE NEB Last administered on 11/04/18at 18:55; Start 11/04/18 at 18:45; Stop 11/04/18 at 18:46; Status DC Methylprednisolone Sodium Succinate (SOLU-Medrol 125MG VIAL) 125 mg 1X ONCE IV ; Start 11/04/18 at 18:45; Stop 11/04/18 at 19:45; Status DC Methylprednisolone Sodium Succinate (SOLU-Medrol 125MG VIAL) 125 mg 1X ONCE IM Last administered on 11/04/18at 19:54; Start 11/04/18 at 19:45; Stop 11/04/18 at 19:48; Status DC Levofloxacin/ Dextrose 150 ml @ 100 mls/hr 1X ONCE IV Last administered on 11/04/18at 20:46; Start 11/04/18 at 20:30; Stop 11/04/18 at 21:59; Status DC Ondansetron HCl (Zofran) 4 mg PRN Q8HRS PRN IV NAUSEA/VOMITING; Start 11/04/18 at 20:30; Stop 11/05/18 at 20:29; Status DC Acetaminophen (Tylenol) 650 mg PRN Q4HRS PRN PO FEVER; Start 11/04/18 at 20:30; Stop 11/05/18 at 20:29; Status Cancel Albuterol/ Ipratropium (Duoneb) 3 ml RTQID NEB ; Start 11/05/18 at 08:00; Stop 11/04/18 at 21:33; Status DC Methylprednisolone Sodium Succinate (SOLU-Medrol 125MG VIAL) 125 mg Q12HR IV L ast administered on 11/07/18at 08:08; Start 11/05/18 at 09:00; Stop 11/07/18 at 12:50; Status DC Vancomycin HCl (Vanco Per Pharmacy) 1 each PRN DAILY PRN MC SEE COMMENTS Last administered on 11/05/18at 14:14; Start 11/04/18 at 21:30; Stop 11/05/18 at 14:48 ; Status DC Piperacillin Sod/ Tazobactam Sod (Zosyn Per Pharmacy) 1 each PRN DAILY PRN MC SEE COMMENTS; Start 11/04/18 at 22:00; Stop 11/05/18 at 14:48; Status DC Polyethylene Glycol (miraLAX PACKET) 17 gm DAILY PO ; Start 11/05/18 at 09:00; Stop 11/06/18 at 09:22; Status DC Docusate Sodium (Colace) 100 mg DAILY PO Last administered on 11/08/18at 08:17; Start 11/05/18 at 09:00 Albuterol/ Ipratropium (Duoneb) 3 ml Q4HRS W/A NEB Last administered on 11/05/18at 15:12; Start 11/04/18 at 22:00; Stop 11/05/18 at 19:00; Status DC Albuterol Sulfate (Ventolin Neb Soln) 2.5 mg PRN QID PRN NEB dyspnea Last administered on 11/09/18at 03:21; Start 11/04/18 at 21:45 Vancomycin HCl 1.5 gm/Sodium Chloride 500 ml @ 250 mls/hr 1X ONCE IV Last administered on 11/04/18at 23:09; Start 11/04/18 at 22:00; Stop 11/04/18 at 23:59; Status DC Piperacillin Sod/ Tazobactam Sod 3.375 gm/Sodium Chloride 50 ml @ 100 mls/hr Q6HRS IV Last administered on 11/05/18at 12:24; Start 11/05/18 at 00:00; Stop 11/05/18 at 14:49; Status DC Acetaminophen (Tylenol) 650 mg PRN Q4HRS PRN PO TEMP OVER 100.4F OR MILD PAIN; Start 11/04/18 at 22:45 Aspirin (Ecotrin) 81 mg DAILYWBKFT PO Last administered on 11/08/18at 08:16; Start 11/05/18 at 08:00 Lorazepam (Ativan) 1 mg PRN BID PRN PO ANXIETY / AGITATION Last administered on 11/06/18at 19:58; Start 11/04/18 at 22:45 Metformin HCl (Glucophage) 500 mg DAILYWBKFT PO Last administered on 11/08/18 08:16; Start 11/05/18 at 08:00 Metoclopramide HCl (Reglan) 5 mg QID PO Last administered on 11/08/18 21:02; Start 11/05/18 at 09:00 Montelukast Sodium (Singulair) 10 mg QHS PO Last administered on 11/08/18 21:02; Start 11/05/18 at 21:00 Oxycodone/ Acetaminophen (Percocet 5/325) 1 tab PRN Q6HRS PRN PO SEVERE PAIN Last administered on 11/08/18 08:23; Start 11/04/18 at 22:45 Polyethylene Glycol (miraLAX PACKET) 17 gm BID PO Last administered on 11/08/18 21:00; Start 11/05/18 at 09:00 Prednisone (Prednisone) 10 mg DAILY PO ; Start 11/05/18 at 09:00; Status UNV Tizanidine HCl (Zanaflex) 4 mg PRN TID PRN PO MUSCLE SPASMS Last administered on 11/05/18 09:33; Start 11/04/18 at 22:45 Azithromycin (Zithromax) 250 mg DAILY PO Last administered on 11/08/18 08:17; Start 11/05/18 at 09:00 Nystatin (Nystatin Oral Susp) 5 ml [id number] Last administered on 11/08/18 21:03; Start 11/05/18 at 09:00 Tramadol HCl (Ultram) 50 mg PRN Q6HRS PRN PO MODERATE PAIN Last administered on 11/06/18 09:26; Start 11/04/18 at 23:00 Pantoprazole Sodium (Protonix) 20 mg DAILYAC PO Last administered on 11/08/18 08:17; Start 11/05/18 at 07:30 Vancomycin HCl 1 gm/Sodium Chloride 250 ml @ 250 mls/hr Q12H IV Last administered on 11/05/18 09:33; Start 11/05/18 at 10:00; Stop 11/05/18 at 14:49; Status DC Vancomycin HCl (Vancomycin Trough Level) 1 each 1X ONCE MC ; Start 11/06/18 at 09:30; Stop 11/05/18 at 14:49; Status DC Metoclopramide HCl (Reglan) 10 mg STK-MED ONCE .ROUTE ; Start 11/05/18 at 07:28; Stop 11/05/18 at 07:28; Status DC Lactobacillus Rhamnosus (Culturelle) 1 cap BID PO Last administered on 11/08/18at 21:00; Start 11/05/18 at 15:00 Albuterol/ Ipratropium (Duoneb) 3 ml RTQID NEB Last administered on 11/09/18at 07:27; Start 11/05/18 at 20:00 Methylprednisolone Sodium Succinate (SOLU-Medrol 125MG VIAL) 60 mg Q12HR IV Last administered on 11/08/18at 21:01; Start 11/07/18 at 21:00; Stop 11/09/18 at 08:11; Status DC Rivaroxaban (Xarelto) 20 mg DAILYWSUP PO Last administered on 11/08/18at 21:02; Start 11/08/18 at 19:00 Benzonatate (Tessalon Perle) 100 mg [id number] PO Last administered on 11/08/18at 21:02; Start 11/08/18 at 21:00 Temazepam (Restoril) 7.5 mg PRN QHS PRN PO INSOMNIA Last administered on 11/08/18at 21:02; Start 11/08/18 at 18:45 Polyethylene Glycol (miraLAX PACKET) 17 gm DAILY PO ; Start 11/09/18 at 09:00 Magnesium Hydroxide (Milk Of Magnesia) 2,400 mg PRN DAILY PRN PO CONSTIPATION; Start 11/08/18 at 18:45 Methylprednisolone Sodium Succinate (SOLU-Medrol 40MG VIAL) 40 mg Q12HR IV ; Start 11/09/18 at 09:00 Fluticasone Propionate (Flonase) 2 spray DAILY NS ; Start 11/09/18 at 09:00 Active Scripts Active Miralax (Polyethylene Glycol 3350) 119 Gm Powder 17 Gm PO BID Prednisone (Prednisone) 10 Mg Tablet 10 Mg PO DAILY 5 Days Nystatin 100,000 Unit/1 Ml Oral.susp 5 Ml SWSW [id number] 5 Days Duoneb 0.5-3(2.5) Mg/3 Ml (Albuterol/Ipratropium) 3 Ml Ampul.neb 3 Ml NEB QID Tessalon Perle (Benzonatate) 100 Mg Capsule 1 Cap PO TID Montelukast Sodium Tablet (Montelukast Sodium) 10 Mg Tablet 10 Mg PO QHS Lidocaine PATCH (Lidocaine) 1 Each Adh..patch 1 Each TP DAILY 30 Days REMOVE AFTER 12 HOURS Ativan (Lorazepam) 1 Mg Tablet 1 Mg PO PRN BID PRN Humalog (Insulin Lispro) 100 Unit/1 Ml Insuln.pen 0 Units SQ TIDWMEALS 30 Days Aspirin Ec (Aspirin) 81 Mg Tablet.dr 81 Mg PO DAILYWBKFT 30 Days Cyclobenzaprine Hcl 5 Mg Tablet 5 Mg PO PRN TID PRN Tramadol Hcl 50 Mg Tablet 50 Mg PO PRN Q6HRS PRN 6 Days Guaifenesin 100 Mg/5 Ml Liquid 200 Mg PO PRN Q4HRS PRN 30 Days Tylenol (Acetaminophen) 325 Mg Tablet 650 Mg PO PRN Q4HRS PRN 10 Days Ventolin Hfa Inhaler (Albuterol Sulfate) 18 Gm Hfa.aer.ad 2 Puff INH Q4HRS Reglan (Metoclopramide Hcl) 10 Mg Tablet 0.5 Tab PO QID 30 Days Reported Tizanidine Hcl 4 Mg Tablet 4 Mg PO TID PRN Percocet 5-325 Mg Tablet (Oxycodone/Acetaminophen) 1 Each Tablet 1 Tab PO PRN Q6HRS PRN Azithromycin Tablet (Azithromycin) 250 Mg Tablet 250 Mg PO DAILY Xarelto (Rivaroxaban) 20 Mg Tablet 20 Mg PO DAILY Metformin Hcl 500 Mg Tablet 500 Mg PO DAILYWBKFT Pulmicort (Budesonide) 0.25 Mg/2 Ml Ampul.neb 1 Vial NEB BID Albuterol Sulfate Neb Soln (Albuterol Sulfate) 2.5 Mg/3 Ml Vial.neb 1 Vial NEB PRN Q2HR PRN Furosemide 40 Mg Tablet 1 Tab PO DAILY Vitamin D3 (Cholecalciferol (Vitamin D3)) 5,000 Unit Tablet 5,000 Unit PO DAILY Potassium Chloride 20 Meq Tablet.er 20 Meq PO DAILY Protonix (Pantoprazole Sodium) 20 Mg Tablet.dr 1 Tab PO DAILY Atorvastatin Calcium 10 Mg Tablet 10 Mg PO HS Symbicort 160-4.5 Mcg Inhaler (Budesonide/Formoterol Fumarate) 10.2 Gm Hfa.aer.ad 2 Puff IH BID Vitals/I & O Vital Sign - Last 24 Hours 11/08/18 11/08/18 11/08/18 11/08/18 09:25 11:00 12:02 15:00 Temp 98.0 99.8 98.0 99.8 Pulse 85 110 Resp 16 18 20 B/P (MAP) 121/67 (85) 108/70 (83) Pulse Ox 100 100 96 O2 Delivery Nasal Cannula Nasal Cannula Nasal Cannula Nasal Cannula O2 Flow Rate 3.0 3.0 3.0 3.0 11/08/18 11/08/18 11/08/18 11/08/18 16:35 18:40 19:29 19:45 Temp 99.4 99.4 Pulse 97 Resp 20 B/P (MAP) 123/75 (91) Pulse Ox 100 98 O2 Delivery Nasal Cannula Nasal Cannula Nasal Cannula Nasal Cannula O2 Flow Rate 3.0 3.0 3.0 3.0 11/08/18 11/09/18 11/09/18 11/09/18 23:30 03:21 03:30 07:00 Temp 98.3 98.3 98.1 98.3 98.3 98.1 Pulse 94 76 93 Resp 20 20 16 B/P (MAP) 108/62 (77) 114/63 (80) 123/75 (91) Pulse Ox 98 96 100 O2 Delivery Nasal Cannula Nasal Cannula Nasal Cannula Nasal Cannula O2 Flow Rate 3.0 3.0 3.0 3.0 11/09/18 07:27 Pulse Ox 100 O2 Delivery Nasal Cannula O2 Flow Rate 3.0 Intake and Output 11/08/18 11/08/18 11/09/18 15:00 23:00 07:00 Intake Total 320 ml 370 ml 400 ml Output Total 600 ml 400 ml 400 ml Balance -280 ml -30 ml 0 ml TOMAS BAIG MD Nov 09, 2018 08:44
[2018-11-09] MEDS: FLUTICASONE 50MCG/NASAL SPRAY 16GM BOTTLE. NS SCH (08:46)
[2018-11-09] MEDS: ANTI-COAG MONITOR BY PHARMACY. MC PRN (13:36)
[2018-11-09] MEDS: LORazepam 1 MG TABLET PO PRN ×2 (15:49→21:35)
[2018-11-09] MEDS: traMADol 50 MG TABLET PO PRN ×2 (15:54→21:36)
[2018-11-09] MEDS: RIVAROXABAN 10 MG TABLET. PO SCH (17:21)
[2018-11-09] MEDS ORDERED: MAGNESIUM CITRATE 296 ML SOLUTION. PO PRN (21:00)
[2018-11-09] MEDS: MONTELUKAST SODIUM 10 MG TABLET. PO SCH (21:35)
[2018-11-09] MEDS: TEMAZEPAM 7.5 MG CAPSULE PO PRN (21:35)
[2018-11-10] VITALS (9 sets, daily range): BP systolic 111–128; BP diastolic 67–84
[2018-11-10] MEDS: IPRATRPIUM/ALBUTEROL 0.5/2.5MG 3 ML NEBU. NEB SCH ×4 (06:21→20:56)
[2018-11-10 06:35] LABS: BASO % 0 % (0-3); EOS % 0 % (0-3); HEMATOCRIT 21.2 % (39.0-53.0); LYMPH # 0.2 x10^3/uL (1.0-4.8); LYMPH % 3 % (24-48); MEAN CORPUSCULAR HEMOGLOBIN 22 pg (25-35); MEAN CORPUSCULAR HGB CONC 31 g/dL (31-37); MEAN CORPUSCULAR VOLUME 70 fL (79-100); MONO # 0.3 x10^3/uL (0.0-1.1); MONO % 5 % (0-9); NEUT # 5.5 x10^3/uL (1.8-7.7); NEUT % 93 % (31-73); PLATELET COUNT 195 x10^3/uL (140-400); RED BLOOD COUNT 3.01 x10^6/uL (4.30-5.70); RED CELL DISTRIBUTION WIDTH 20.2 % (11.5-14.5)
[2018-11-10 06:46] LABS: HEMOGLOBIN 6.6 g/dL (13.0-17.5)
[2018-11-10 06:59] LABS: CALCIUM 8.7 mg/dL (8.5-10.1); CREATININE 0.7 mg/dL (0.7-1.3); GFR 139.7; POTASSIUM 4.5 mmol/L (3.5-5.1)
[2018-11-10] MEDS: NYSTATIN 100,000 UNITS/ML 5 ML ORAL.SUSP. SWSW SCH ×4 (08:12→21:20)
[2018-11-10] MEDS: BENZONATATE 100 MG CAPSULE. PO SCH ×3 (08:13→21:21)
[2018-11-10] MEDS: PANTOPRAZOLE 40 MG TABLET.DR. PO SCH (08:13)
[2018-11-10] MEDS: ASPIRIN ENTERIC COATED 81 MG TABLET.DR. PO SCH (08:13)
[2018-11-10] MEDS: metFORMIN 500 MG TABLET PO SCH (08:13)
[2018-11-10] MEDS: POLYETHYLENE GLYCOL 3350 17 GM PACKET. PO SCH (08:13)
[2018-11-10] MEDS: LACTOBACILLUS RHAMNOSUS GG 1 CAPSULE. PO SCH ×2 (08:13→21:21)
[2018-11-10] MEDS: methylPREDNISolone SOD SUCC PF 40 MG/ML VIAL. IV SCH (08:14)
[2018-11-10] MEDS: METOCLOPRAMIDE 10 MG TABLET. PO SCH ×4 (08:14→21:21)
[2018-11-10] MEDS: AZITHROMYCIN 250 MG TABLET. PO SCH (08:14)
[2018-11-10] MEDS: DOCUSATE SODIUM 100 MG CAPSULE. PO SCH (08:16)
--- NOTE | 2018-11-10 08:17 | PDOC ---
PULMONARY PROGRESS NOTES Subjective sob better, has cough, nasal congestion better Vitals Vital Signs Date Time Temp Pulse Resp B/P (MAP) Pulse Ox O2 Delivery O2 Flow Rate FiO2 11/10/18 07:00 98.3 101 16 117/71 (86) 100 Nasal Cannula 2.0 98.3 ROS: No Nausea General: Alert, Oriented X4, No acute distress Lungs: Crackles, Other Cardiovascular: S1, S2 Abdomen: Soft, Non-tender Neuro Exam: Alert Extremities: Other Skin: Warm Labs Laboratory Tests Test 11/08/18 11:49 11/08/18 17:40 11/08/18 20:51 11/09/18 07:56 Glucose (Fingerstick) 145 mg/dL (70-99) 159 mg/dL (70-99) 166 mg/dL (70-99) 117 mg/dL (70-99) Test 11/09/18 11:44 11/09/18 16:49 11/09/18 21:01 11/10/18 05:22 Glucose (Fingerstick) 135 mg/dL (70-99) 240 mg/dL (70-99) 187 mg/dL (70-99) White Blood Count 6.0 x10^3/uL (4.0-11.0) Red Blood Count 3.01 x10^6/uL (4.30-5.70) Hemoglobin 6.6 g/dL (13.0-17.5) Hematocrit 21.2 % (39.0-53.0) Mean Corpuscular Volume 70 fL (79-100) Mean Corpuscular Hemoglobin 22 pg (25-35) Mean Corpuscular Hemoglobin Concent 31 g/dL (31-37) Red Cell Distribution Width 20.2 % (11.5-14.5) Platelet Count 195 x10^3/uL (140-400) Neutrophils (%) (Auto) 93 % (31-73) Lymphocytes (%) (Auto) 3 % (24-48) Monocytes (%) (Auto) 5 % (0-9) Eosinophils (%) (Auto) 0 % (0-3) Basophils (%) (Auto) 0 % (0-3) Neutrophils # (Auto) 5.5 x10^3/uL (1.8-7.7) Lymphocytes # (Auto) 0.2 x10^3/uL (1.0-4.8) Monocytes # (Auto) 0.3 x10^3/uL (0.0-1.1) Eosinophils # (Auto) 0.0 x10^3/uL (0.0-0.7) Basophils # (Auto) 0.0 x10^3/uL (0.0-0.2) Sodium Level 141 mmol/L (136-145) Potassium Level 4.5 mmol/L (3.5-5.1) Chloride Level 104 mmol/L (98-107) Carbon Dioxide Level 34 mmol/L (21-32) Anion Gap 3 (6-14) Blood Urea Nitrogen 17 mg/dL (8-26) Creatinine 0.7 mg/dL (0.7-1.3) Estimated GFR (Cockcroft-Gault) 139.7 Glucose Level 142 mg/dL (70-99) Calcium Level 8.7 mg/dL (8.5-10.1) Test 11/10/18 07:40 Glucose (Fingerstick) 134 mg/dL (70-99) Laboratory Tests Test 11/09/18 11:44 11/09/18 16:49 11/09/18 21:01 11/10/18 05:22 Glucose (Fingerstick) 135 mg/dL (70-99) 240 mg/dL (70-99) 187 mg/dL (70-99) White Blood Count 6.0 x10^3/uL (4.0-11.0) Red Blood Count 3.01 x10^6/uL (4.30-5.70) Hemoglobin 6.6 g/dL (13.0-17.5) Hematocrit 21.2 % (39.0-53.0) Mean Corpuscular Volume 70 fL (79-100) Mean Corpuscular Hemoglobin 22 pg (25-35) Mean Corpuscular Hemoglobin Concent 31 g/dL (31-37) Red Cell Distribution Width 20.2 % (11.5-14.5) Platelet Count 195 x10^3/uL (140-400) Neutrophils (%) (Auto) 93 % (31-73) Lymphocytes (%) (Auto) 3 % (24-48) Monocytes (%) (Auto) 5 % (0-9) Eosinophils (%) (Auto) 0 % (0-3) Basophils (%) (Auto) 0 % (0-3) Neutrophils # (Auto) 5.5 x10^3/uL (1.8-7.7) Lymphocytes # (Auto) 0.2 x10^3/uL (1.0-4.8) Monocytes # (Auto) 0.3 x10^3/uL (0.0-1.1) Eosinophils # (Auto) 0.0 x10^3/uL (0.0-0.7) Basophils # (Auto) 0.0 x10^3/uL (0.0-0.2) Sodium Level 141 mmol/L (136-145) Potassium Level 4.5 mmol/L (3.5-5.1) Chloride Level 104 mmol/L (98-107) Carbon Dioxide Level 34 mmol/L (21-32) Anion Gap 3 (6-14) Blood Urea Nitrogen 17 mg/dL (8-26) Creatinine 0.7 mg/dL (0.7-1.3) Estimated GFR (Cockcroft-Gault) 139.7 Glucose Level 142 mg/dL (70-99) Calcium Level 8.7 mg/dL (8.5-10.1) Test 11/10/18 07:40 Glucose (Fingerstick) 134 mg/dL (70-99) Medications Active Scripts Medications Dose Route/Sig Max Daily Dose Days Date Category Dose Instructions Tizanidine Hcl 4 Mg Tablet 4 Mg PO TID PRN 11/04/18 Reported Percocet 5-325 Mg Tablet (Oxycodone/Acetaminophen) 1 Each Tablet 1 Tab PO PRN Q6HRS PRN 11/04/18 Reported Azithromycin Tablet (Azithromycin) 250 Mg Tablet 250 Mg PO DAILY 11/04/18 Reported Miralax (Polyethylene Glycol 3350) 119 Gm Powder 17 Gm PO BID 11/03/18 Rx Prednisone (Prednisone) 10 Mg Tablet 10 Mg PO DAILY 5 10/31/18 Rx Nystatin 100,000 Unit/1 Ml Oral.susp 5 Ml SWSW [id number] 10/31/18 Rx Duoneb 0.5-3(2.5) Mg/3 Ml (Albuterol/Ipratropium) 3 Ml Ampul.neb 3 Ml NEB QID 10/28/18 Rx Tessalon Perle (Benzonatate) 100 Mg Capsule 1 Cap PO TID 10/28/18 Rx Montelukast Sodium Tablet (Montelukast Sodium) 10 Mg Tablet 10 Mg PO QHS 10/28/18 Rx Lidocaine PATCH (Lidocaine) 1 Each Adh..patch 1 Each TP DAILY 30 09/11/18 Rx REMOVE AFTER 12 HOURS Ativan (Lorazepam) 1 Mg Tablet 1 Mg PO PRN BID PRN 09/11/18 Rx Xarelto (Rivaroxaban) 20 Mg Tablet 20 Mg PO DAILY 09/09/18 Reported Metformin Hcl 500 Mg Tablet 500 Mg PO DAILYWBKFT 09/09/18 Reported Humalog (Insulin Lispro) 100 Unit/1 Ml Insuln.pen 0 Units SQ TIDWMEALS 08/28/18 Rx Aspirin Ec (Aspirin) 81 Mg Tablet.dr 81 Mg PO DAILYWBKFT 08/28/18 Rx Pulmicort (Budesonide) 0.25 Mg/2 Ml Ampul.neb 1 Vial NEB BID 08/25/18 Reported Albuterol Sulfate Neb Soln (Albuterol Sulfate) 2.5 Mg/3 Ml Vial.neb 1 Vial NEB PRN Q2HR PRN 08/25/18 Reported Cyclobenzaprine Hcl 5 Mg Tablet 5 Mg PO PRN TID PRN 08/20/18 Rx Tramadol Hcl 50 Mg Tablet 50 Mg PO PRN Q6HRS PRN 6 07/12/18 Rx Furosemide 40 Mg Tablet 1 Tab PO DAILY 06/20/18 Reported Guaifenesin 100 Mg/5 Ml Liquid 200 Mg PO PRN Q4HRS PRN 30 05/30/18 Rx Tylenol (Acetaminophen) 325 Mg Tablet 650 Mg PO PRN Q4HRS PRN 10 05/30/18 Rx Ventolin Hfa Inhaler (Albuterol Sulfate) 18 Gm Hfa.aer.ad 2 Puff INH Q4HRS 05/10/18 Rx Vitamin D3 (Cholecalciferol (Vitamin D3)) 5,000 Unit Tablet 5,000 Unit PO DAILY 03/15/18 Reported Reglan (Metoclopramide Hcl) 10 Mg Tablet 0.5 Tab PO QID 30 02/14/18 Rx Potassium Chloride 20 Meq Tablet.er 20 Meq PO DAILY 01/13/18 Reported Protonix (Pantoprazole Sodium) 20 Mg Tablet.dr 1 Tab PO DAILY 11/18/17 Reported Atorvastatin Calcium 10 Mg Tablet 10 Mg PO HS 08/21/17 Reported Symbicort 160-4.5 Mcg Inhaler (Budesonide/Formoterol Fumarate) 10.2 Gm Hfa.aer.ad 2 Puff IH BID 09/21/15 Reported Impression . 1. Dyspnea in a patient with end-stage chronic obstructive pulmonary disease and chronic hypoxic respiratory failure. Now comes in with exacerbation of chronic obstructive pulmonary disease triggered by cold temperature when he visited [facility]. 2. No signs of acute infection. 3. Stable, unchanged chest x-ray with extensive large bullous lung disease on the left side. 4. History of pulmonary embolism, which subsequently resolved on followup scans. Currently, on Xarelto. Plan . 1. dr vu Discussed with the patient and social work lecturer. Most of his readmissions are related to social issues and end stage COPD. the patient is not capable of living independently at home and should be at the shelter. youth services specialist to help regarding that. 2. In the meantime, continue present bronchodilators. 3. change solumedrol to prednisone 40 mg daily 4. PO abx 5. Xarelto dced, hb 6.8, prbc ordered by primary. 6. cont flonase for nasal congestion discussed w TAMAR Blue MD Nov 10, 2018 08:17
[2018-11-10] MEDS: FLUTICASONE 50MCG/NASAL SPRAY 16GM BOTTLE. NS SCH (08:58)
--- NOTE | 2018-11-10 10:33 | PDOC ---
PROGRESS NOTES Chief Complaint Chief Complaint sob better today. chronically on 2-3 liters of 02 History of Present Illness History of Present Illness IMPRESSION End Stage COPD with acute exacerbation - acute on chronic combined respiratory failure recent DC 3 days [employer] , per pulm defer IV abx, continue IV steroids, nebs ON RECENT CT CHEST No acute intrathoracic, intra-abdominal, or intrapelvic process identified. Approximately 40 percent T8 vertebral body height loss is new from 09/08/2018 exam. Correlate for point tenderness in the region. MRI thoracic spine could be obtained for further evaluation if there is concern for acute fracture. 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 following with pulm UNDERWEIGHT anemia hgb 6.8 transfused 11/10 patient is not capable of living independently at home and [facility], PT HOMELESS 11/10 pt now states he can stay at sisters home 28 min pt exam, chart review, > 50% of time spent with exam, chart review, pt care coordination Vitals Vitals Vital Signs Date Time Temp Pulse Resp B/P (MAP) Pulse Ox O2 Delivery O2 Flow Rate FiO2 11/10/18 07:00 98.3 101 16 117/71 (86) 100 Nasal Cannula 2.0 98.3 Physical Exam Physical Exam HENT: Normocephalic, atraumatic, bilateral external ears normal, oropharynx moist, no oral exudates, nose normal. [ Cardiovascular:Heart rate regular rhythm, no murmur [] Lungs & Thorax: Decreased breath sounds, occasional wheeze Abdomen: Bowel sounds normal, soft, no tenderness, no masses, no pulsatile masses. [] Skin: Warm, dry, no erythema, no rash. [] Extremities: No tenderness, no cyanosis, no edema. [] Neurologic: Alert and oriented X 3, no focal deficits noted. [] Psychologic: Affect normal, judgement POOR, mood normal. CAPILLARY REFILL < 2 SEC [] General: Alert, Oriented X3, Cooperative, No acute distress Heart: Regular rate Lungs: Crackles, Other Abdomen: Normal bowel sounds, Soft, No tenderness Extremities: No cyanosis Skin: No significant lesion Labs LABS Laboratory Tests Test 11/09/18 11:44 11/09/18 16:49 11/09/18 21:01 11/10/18 05:22 Glucose (Fingerstick) 135 mg/dL (70-99) 240 mg/dL (70-99) 187 mg/dL (70-99) White Blood Count 6.0 x10^3/uL (4.0-11.0) Red Blood Count 3.01 x10^6/uL (4.30-5.70) Hemoglobin 6.6 g/dL (13.0-17.5) Hematocrit 21.2 % (39.0-53.0) Mean Corpuscular Volume 70 fL (79-100) Mean Corpuscular Hemoglobin 22 pg (25-35) Mean Corpuscular Hemoglobin Concent 31 g/dL (31-37) Red Cell Distribution Width 20.2 % (11.5-14.5) Platelet Count 195 x10^3/uL (140-400) Neutrophils (%) (Auto) 93 % (31-73) Lymphocytes (%) (Auto) 3 % (24-48) Monocytes (%) (Auto) 5 % (0-9) Eosinophils (%) (Auto) 0 % (0-3) Basophils (%) (Auto) 0 % (0-3) Neutrophils # (Auto) 5.5 x10^3/uL (1.8-7.7) Lymphocytes # (Auto) 0.2 x10^3/uL (1.0-4.8) Monocytes # (Auto) 0.3 x10^3/uL (0.0-1.1) Eosinophils # (Auto) 0.0 x10^3/uL (0.0-0.7) Basophils # (Auto) 0.0 x10^3/uL (0.0-0.2) Sodium Level 141 mmol/L (136-145) Potassium Level 4.5 mmol/L (3.5-5.1) Chloride Level 104 mmol/L (98-107) Carbon Dioxide Level 34 mmol/L (21-32) Anion Gap 3 (6-14) Blood Urea Nitrogen 17 mg/dL (8-26) Creatinine 0.7 mg/dL (0.7-1.3) Estimated GFR (Cockcroft-Gault) 139.7 Glucose Level 142 mg/dL (70-99) Calcium Level 8.7 mg/dL (8.5-10.1) Test 11/10/18 07:40 Glucose (Fingerstick) 134 mg/dL (70-99) Assessment and Plan Assessmemt and Plan Problems Medical Problems: (1) Acute and chronic respiratory failure Status: Acute (2) Chronic respiratory failure Status: Chronic (3) Chronic respiratory failure with hypoxia Status: Chronic (4) COPD with exacerbation Status: Acute (5) Depression Status: Chronic (6) Dyspnea Status: Acute (7) Hypertension Status: Chronic (8) Right conjunctivitis Status: Acute (9) Tachycardia Status: Acute Comment Review of Relevant I have reviewed the following items franki (where applicable) has been applied. Labs Laboratory Tests Test 11/08/18 11:49 11/08/18 17:40 11/08/18 20:51 11/09/18 07:56 Glucose (Fingerstick) 145 mg/dL (70-99) 159 mg/dL (70-99) 166 mg/dL (70-99) 117 mg/dL (70-99) Test 11/09/18 11:44 11/09/18 16:49 11/09/18 21:01 11/10/18 05:22 Glucose (Fingerstick) 135 mg/dL (70-99) 240 mg/dL (70-99) 187 mg/dL (70-99) White Blood Count 6.0 x10^3/uL (4.0-11.0) Red Blood Count 3.01 x10^6/uL (4.30-5.70) Hemoglobin 6.6 g/dL (13.0-17.5) Hematocrit 21.2 % (39.0-53.0) Mean Corpuscular Volume 70 fL (79-100) Mean Corpuscular Hemoglobin 22 pg (25-35) Mean Corpuscular Hemoglobin Concent 31 g/dL (31-37) Red Cell Distribution Width 20.2 % (11.5-14.5) Platelet Count 195 x10^3/uL (140-400) Neutrophils (%) (Auto) 93 % (31-73) Lymphocytes (%) (Auto) 3 % (24-48) Monocytes (%) (Auto) 5 % (0-9) Eosinophils (%) (Auto) 0 % (0-3) Basophils (%) (Auto) 0 % (0-3) Neutrophils # (Auto) 5.5 x10^3/uL (1.8-7.7) Lymphocytes # (Auto) 0.2 x10^3/uL (1.0-4.8) Monocytes # (Auto) 0.3 x10^3/uL (0.0-1.1) Eosinophils # (Auto) 0.0 x10^3/uL (0.0-0.7) Basophils # (Auto) 0.0 x10^3/uL (0.0-0.2) Sodium Level 141 mmol/L (136-145) Potassium Level 4.5 mmol/L (3.5-5.1) Chloride Level 104 mmol/L (98-107) Carbon Dioxide Level 34 mmol/L (21-32) Anion Gap 3 (6-14) Blood Urea Nitrogen 17 mg/dL (8-26) Creatinine 0.7 mg/dL (0.7-1.3) Estimated GFR (Cockcroft-Gault) 139.7 Glucose Level 142 mg/dL (70-99) Calcium Level 8.7 mg/dL (8.5-10.1) Test 11/10/18 07:40 Glucose (Fingerstick) 134 mg/dL (70-99) Laboratory Tests Test 11/09/18 11:44 11/09/18 16:49 11/09/18 21:01 11/10/18 05:22 Glucose (Fingerstick) 135 mg/dL (70-99) 240 mg/dL (70-99) 187 mg/dL (70-99) White Blood Count 6.0 x10^3/uL (4.0-11.0) Red Blood Count 3.01 x10^6/uL (4.30-5.70) Hemoglobin 6.6 g/dL (13.0-17.5) Hematocrit 21.2 % (39.0-53.0) Mean Corpuscular Volume 70 fL (79-100) Mean Corpuscular Hemoglobin 22 pg (25-35) Mean Corpuscular Hemoglobin Concent 31 g/dL (31-37) Red Cell Distribution Width 20.2 % (11.5-14.5) Platelet Count 195 x10^3/uL (140-400) Neutrophils (%) (Auto) 93 % (31-73) Lymphocytes (%) (Auto) 3 % (24-48) Monocytes (%) (Auto) 5 % (0-9) Eosinophils (%) (Auto) 0 % (0-3) Basophils (%) (Auto) 0 % (0-3) Neutrophils # (Auto) 5.5 x10^3/uL (1.8-7.7) Lymphocytes # (Auto) 0.2 x10^3/uL (1.0-4.8) Monocytes # (Auto) 0.3 x10^3/uL (0.0-1.1) Eosinophils # (Auto) 0.0 x10^3/uL (0.0-0.7) Basophils # (Auto) 0.0 x10^3/uL (0.0-0.2) Sodium Level 141 mmol/L (136-145) Potassium Level 4.5 mmol/L (3.5-5.1) Chloride Level 104 mmol/L (98-107) Carbon Dioxide Level 34 mmol/L (21-32) Anion Gap 3 (6-14) Blood Urea Nitrogen 17 mg/dL (8-26) Creatinine 0.7 mg/dL (0.7-1.3) Estimated GFR (Cockcroft-Gault) 139.7 Glucose Level 142 mg/dL (70-99) Calcium Level 8.7 mg/dL (8.5-10.1) Test 11/10/18 07:40 Glucose (Fingerstick) 134 mg/dL (70-99) Medications Current Medications Albuterol/ Ipratropium (Duoneb) 3 ml 1X ONCE NEB Last administered on 11/04/18at 18:55; Start 11/04/18 at 18:45; Stop 11/04/18 at 18:46; Status DC Methylprednisolone Sodium Succinate (SOLU-Medrol 125MG VIAL) 125 mg 1X ONCE IV ; Start 11/04/18 at 18:45; Stop 11/04/18 at 19:45; Status DC Methylprednisolone Sodium Succinate (SOLU-Medrol 125MG VIAL) 125 mg 1X ONCE IM Last administered on 11/04/18at 19:54; Start 11/04/18 at 19:45; Stop 11/04/18 at 19:48; Status DC Levofloxacin/ Dextrose 150 ml @ 100 mls/hr 1X ONCE IV Last administered on 11/04/18at 20:46; Start 11/04/18 at 20:30; Stop 11/04/18 at 21:59; Status DC Ondansetron HCl (Zofran) 4 mg PRN Q8HRS PRN IV NAUSEA/VOMITING; Start 11/04/18 at 20:30; Stop 11/05/18 at 20:29; Status DC Acetaminophen (Tylenol) 650 mg PRN Q4HRS PRN PO FEVER; Start 11/04/18 at 20:30; Stop 11/05/18 at 20:29; Status Cancel Albuterol/ Ipratropium (Duoneb) 3 ml RTQID NEB ; Start 11/05/18 at 08:00; Stop 11/04/18 at 21:33; Status DC Methylprednisolone Sodium Succinate (SOLU-Medrol 125MG VIAL) 125 mg Q12HR IV Last administered on 11/07/18at 08:08; Start 11/05/18 at 09:00; Stop 11/07/18 at 12:50; Status DC Vancomycin HCl (Vanco Per Pharmacy) 1 each PRN DAILY PRN MC SEE COMMENTS Last administered on 11/05/18at 14:14; Start 11/04/18 at 21:30; Stop 11/05/18 at 14:48; Status DC Piperacillin Sod/ Tazobactam Sod (Zosyn Per Pharmacy) 1 each PRN DAILY PRN MC SEE COMMENTS; Start 11/04/18 at 22:00; Stop 11/05/18 at 14:48; Status DC Polyethylene Glycol (miraLAX PACKET) 17 gm DAILY PO ; Start 11/05/18 at 09:00; Stop 11/06/18 at 09:22; Status DC Docusate Sodium (Colace) 100 mg DAILY PO Last administered on 11/10/18at 08:16; Start 11/05/18 at 09:00 Albuterol/ Ipratropium (Duoneb) 3 ml Q4HRS W/A NEB Last administered on 11/05/18at 15:12; Start 11/04/18 at 22:00; Stop 11/05/18 at 19:00; Status DC Albuterol Sulfate (Ventolin Neb Soln) 2.5 mg PRN QID PRN NEB dyspnea Last administered on 11/09/18 03:21; Start 11/04/18 at 21:45 Vancomycin HCl 1.5 gm/Sodium Chloride 500 ml @ 250 mls/hr 1X ONCE IV Last administered on 11/04/18 23:09; Start 11/04/18 at 22:00; Stop 11/04/18 at 23:59; Status DC Piperacillin Sod/ Tazobactam Sod 3.375 gm/Sodium Chloride 50 ml @ 100 mls/hr Q6HRS IV Last administered on 11/05/18 12:24; Start 11/05/18 at 00:00; Stop 11/05/18 at 14:49; Status DC Acetaminophen (Tylenol) 650 mg PRN Q4HRS PRN PO TEMP OVER 100.4F OR MILD PAIN Last administered on 11/09/18 21:35; Start 11/04/18 at 22:45 Aspirin (Ecotrin) 81 mg DAILYWBKFT PO Last administered on 11/10/18 08:13; Start 11/05/18 at 08:00 Lorazepam (Ativan) 1 mg PRN BID PRN PO ANXIETY / AGITATION Last administered on 11/09/18 21:35; Start 11/04/18 at 22:45 Metformin HCl (Glucophage) 500 mg DAILYWBKFT PO Last administered on 11/10/18 08:13; Start 11/05/18 at 08:00 Metoclopramide HCl (Reglan) 5 mg QID PO Last administered on 11/10/18 08:14; Start 11/05/18 at 09:00 Montelukast Sodium (Singulair) 10 mg QHS PO Last administered on 11/09/18 21:35; Start 11/05/18 at 21:00 Oxycodone/ Acetaminophen (Percocet 5/325) 1 tab PRN Q6HRS PRN PO SEVERE PAIN Last administered on 11/08/18 08:23; Start 11/04/18 at 22:45 Polyethylene Glycol (miraLAX PACKET) 17 gm BID PO Last administered on 11/09/18 08:42; Start 11/05/18 at 09:00; Stop 11/09/18 at 13:25; Status DC Prednisone (Prednisone) 10 mg DAILY PO ; Start 11/05/18 at 09:00; Status UNV Tizanidine HCl (Zanaflex) 4 mg PRN TID PRN PO MUSCLE SPASMS Last administered on 11/05/18 09:33; Start 11/04/18 at 22:45 Azithromycin (Zithromax) 250 mg DAILY PO Last administered on 11/10/18 08:14; Start 11/05/18 at 09:00 Nystatin (Nystatin Oral Susp) 5 ml [id number] Last administered on 11/10/18 08:12; Start 11/05/18 at 09:00 Tramadol HCl (Ultram) 50 mg PRN Q6HRS PRN PO MODERATE PAIN Last administered on 11/09/18 21:36; Start 11/04/18 at 23:00 Pantoprazole Sodium (Protonix) 20 mg DAILYAC PO Last administered on 11/10/18 08:13; Start 11/05/18 at 07:30 Vancomycin HCl 1 gm/Sodium Chloride 250 ml @ 250 mls/hr Q12H IV Last administered on 11/05/18 09:33; Start 11/05/18 at 10:00; Stop 11/05/18 at 14:49; Status DC Vancomycin HCl (Vancomycin Trough Level) 1 each 1X ONCE MC ; Start 11/06/18 at 09:30; Stop 11/05/18 at 14:49; Status DC Metoclopramide HCl (Reglan) 10 mg STK-MED ONCE .ROUTE ; Start 11/05/18 at 07:28; Stop 11/05/18 at 07:28; Status DC Lactobacillus Rhamnosus (Culturelle) 1 cap BID PO Last administered on 11/10/18 08:13; Start 11/05/18 at 15:00 Albuterol/ Ipratropium (Duoneb) 3 ml RTQID NEB Last administered on 11/10/18 06:21; Start 11/05/18 at 20:00 Methylprednisolone Sodium Succinate (SOLU-Medrol 125MG VIAL) 60 mg Q12HR IV Last administered on 11/08/18 21:01; Start 11/07/18 at 21:00; Stop 11/09/18 at 08:11; Status DC Rivaroxaban (Xarelto) 20 mg DAILYWSUP PO Last administered on 11/09/18 17:21; Start 11/08/18 at 19:00 Benzonatate (Tessalon Perle) 100 mg [id number] PO Last administered on 11/10/18 08:13; Start 11/08/18 at 21:00 Temazepam (Restoril) 7.5 mg PRN QHS PRN PO INSOMNIA Last administered on 11/09/18 21:35; Start 11/08/18 at 18:45 Polyethylene Glycol (miraLAX PACKET) 17 gm DAILY PO Last administered on 08:13; Start 11/09/18 at 09:00 Magnesium Hydroxide (Milk Of Magnesia) 2,400 mg PRN DAILY PRN PO CONSTIPATION Last administered on 11/09/18 21:35; Start 11/08/18 at 18:45 Methylprednisolone Sodium Succinate (SOLU-Medrol 40MG VIAL) 40 mg Q12HR IV Last administered on 11/10/18 08:14; Start 11/09/18 at 09:00; Stop 11/10/18 at 08:19; Status DC Fluticasone Propionate (Flonase) 2 spray DAILY NS Last administered on 11/09/18 08:46; Start 11/09/18 at 09:00 Info (Anti-Coagulation Monitoring By Pharmacy) 1 each PRN DAILY PRN MC SEE COMMENTS Last administered on 11/09/18 13:36; Start 11/09/18 at 13:30 Magnesium Citrate (Citroma) 296 ml PRN 1X PRN PO CONSTIPATION Last administered on 11/09/18 21:35; Start 11/09/18 at 21:00 Prednisone (Prednisone) 40 mg DAILY PO ; Start 11/10/18 at 09:00 Active Scripts Active Miralax (Polyethylene Glycol 3350) 119 Gm Powder 17 Gm PO BID Prednisone (Prednisone) 10 Mg Tablet 10 Mg PO DAILY 5 Days Nystatin 100,000 Unit/1 Ml Oral.susp 5 Ml SWSW [id number] 5 Days Duoneb 0.5-3(2.5) Mg/3 Ml (Albuterol/Ipratropium) 3 Ml Ampul.neb 3 Ml NEB QID Tessalon Perle (Benzonatate) 100 Mg Capsule 1 Cap PO TID Montelukast Sodium Tablet (Montelukast Sodium) 10 Mg Tablet 10 Mg PO QHS Lidocaine PATCH (Lidocaine) 1 Each Adh..patch 1 Each TP DAILY 30 Days REMOVE AFTER 12 HOURS Ativan (Lorazepam) 1 Mg Tablet 1 Mg PO PRN BID PRN Humalog (Insulin Lispro) 100 Unit/1 Ml Insuln.pen 0 Units SQ TIDWMEALS 30 Days Aspirin Ec (Aspirin) 81 Mg Tablet.dr 81 Mg PO DAILYWBKFT 30 Days Cyclobenzaprine Hcl 5 Mg Tablet 5 Mg PO PRN TID PRN Tramadol Hcl 50 Mg Tablet 50 Mg PO PRN Q6HRS PRN 6 Days Guaifenesin 100 Mg/5 Ml Liquid 200 Mg PO PRN Q4HRS PRN 30 Days Tylenol (Acetaminophen) 325 Mg Tablet 650 Mg PO PRN Q4HRS PRN 10 Days Ventolin Hfa Inhaler (Albuterol Sulfate) 18 Gm Hfa.aer.ad 2 Puff INH Q4HRS Reglan (Metoclopramide Hcl) 10 Mg Tablet 0.5 Tab PO QID 30 Days Reported Tizanidine Hcl 4 Mg Tablet 4 Mg PO TID PRN Percocet 5-325 Mg Tablet (Oxycodone/Acetaminophen) 1 Each Tablet 1 Tab PO PRN Q6HRS PRN Azithromycin Tablet (Azithromycin) 250 Mg Tablet 250 Mg PO DAILY Xarelto (Rivaroxaban) 20 Mg Tablet 20 Mg PO DAILY Metformin Hcl 500 Mg Tablet 500 Mg PO DAILYWBKFT Pulmicort (Budesonide) 0.25 Mg/2 Ml Ampul.neb 1 Vial NEB BID Albuterol Sulfate Neb Soln (Albuterol Sulfate) 2.5 Mg/3 Ml Vial.neb 1 Vial NEB PRN Q2HR PRN Furosemide 40 Mg Tablet 1 Tab PO DAILY Vitamin D3 (Cholecalciferol (Vitamin D3)) 5,000 Unit Tablet 5,000 Unit PO DAILY Potassium Chloride 20 Meq Tablet.er 20 Meq PO DAILY Protonix (Pantoprazole Sodium) 20 Mg Tablet. 1 Tab PO DAILY Atorvastatin Calcium 10 Mg Tablet 10 Mg PO HS Symbicort 160-4.5 Mcg Inhaler (Budesonide/Formoterol Fumarate) 10.2 Gm Hfa.aer.ad 2 Puff IH BID Vitals/I & O Vital Sign - Last 24 Hours 11/09/18 11/09/18 11/09/18 11/09/18 11:00 11:47 15:00 15:23 Temp 98.7 98.4 98.7 98.4 Pulse 87 116 Resp 18 20 B/P (MAP) 127/74 (91) 134/71 (92) Pulse Ox 100 100 100 98 O2 Delivery Nasal Cannula Nasal Cannula Nasal Cannula Nasal Cannula O2 Flow Rate 3.0 3.0 3.0 3.0 11/09/18 11/09/18 11/09/18 11/09/18 15:54 16:45 19:16 19:54 Temp 97.9 97.9 Pulse 91 Resp 18 18 20 B/P (MAP) 126/85 (99) Pulse Ox 100 100 O2 Delivery Nasal Cannula Nasal Cannula Nasal Cannula Nasal Cannula O2 Flow Rate 3.0 3.0 2.0 11/09/18 11/09/18 11/09/18 11/09/18 20:00 21:36 22:36 23:16 Temp 98.2 98.2 Pulse 87 Resp 20 B/P (MAP) 131/71 (91) Pulse Ox 100 100 99 O2 Delivery Nasal Cannula Nasal Cannula Nasal Cannula Nasal Cannula O2 Flow Rate 3.0 2.0 2.0 2.0 11/10/18 11/10/18 06:22 07:00 Temp 98.3 98.3 Pulse 101 Resp 16 B/P (MAP) 117/71 (86) Pulse Ox 100 O2 Delivery Nasal Cannula Nasal Cannula O2 Flow Rate 3.0 2.0 Intake and Output0 11/09/18 11/09/18 11/10/18 15:00 23:00 07:00 Intake Total 220 ml 300 ml 510 ml Balance 220 ml 300 ml 510 ml TOMAS BAIG MD Nov 10, 2018 10:33
[2018-11-10] MEDS: predniSONE 20 MG TABLET PO SCH (11:34)
[2018-11-10] MEDS: traMADol 50 MG TABLET PO PRN ×2 (11:35→17:32)
[2018-11-10] MEDS: ANTI-COAG MONITOR BY PHARMACY. MC PRN (13:47)
[2018-11-10] MEDS: MONTELUKAST SODIUM 10 MG TABLET. PO SCH (21:21)
[2018-11-10] MEDS: LORazepam 1 MG TABLET PO PRN (21:25)
[2018-11-10] MEDS: TEMAZEPAM 7.5 MG CAPSULE PO PRN (21:25)
[2018-11-11 03:48] VITALS: BP 123/79
[2018-11-11] MEDS: IPRATRPIUM/ALBUTEROL 0.5/2.5MG 3 ML NEBU. NEB SCH ×3 (07:20→15:50)
[2018-11-11 07:43] VITALS: BP 132/81
--- NOTE | 2018-11-11 08:32 | PDOC ---
PROGRESS NOTES Chief Complaint Chief Complaint sob better today. chronically on 2-3 liters of 02 History of Present Illness History of Present Illness discharge dx End Stage COPD with acute exacerbation - acute on chronic combined respiratory failure recent DC 3 days [employer] , per pulm defer IV abx, continue IV steroids, nebs ON RECENT CT CHEST No acute intrathoracic, intra-abdominal, or intrapelvic process identified. Approximately 40 percent T8 vertebral body height loss is new from 09/08/2018 exam. Correlate for point tenderness in the region. MRI thoracic spine could be obtained for further evaluation if there is concern for acute fracture. 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 following with pulm UNDERWEIGHT anemia hgb 6.8 transfused 11/10 patient is not capable of living independently at home and should be at the [facility]. but no housing is availMAVERICK brown WORKING ON PLACEMENT, PT HOMELESS 11/10 pt now states he can stay at sisters home 28 min pt exam, chart review d/c planning, > 50% of time spent with exam, chart review, pt care coordination Vitals Vitals Vital Signs Date Time Temp Pulse Resp B/P (MAP) Pulse Ox O2 Delivery O2 Flow Rate FiO2 11/11/18 07:43 98.1 82 20 132/81 (98) 100 Nasal Cannula 2.0 98.1 Physical Exam Physical Exam HENT: Normocephalic, atraumatic, bilateral external ears normal, oropharynx moist, no oral exudates, nose normal. [ Cardiovascular:Heart rate regular rhythm, no murmur [] Lungs & Thorax: Decreased breath sounds, occasional wheeze Abdomen: Bowel sounds normal, soft, no tenderness, no masses, no pulsatile masses. [] Skin: Warm, dry, no erythema, no rash. [] Extremities: No tenderness, no cyanosis, no edema. [] Neurologic: Alert and oriented X 3, no focal deficits noted. [] Psychologic: Affect normal, judgement POOR, mood normal. CAPILLARY REFILL < 2 SEC [] General: Alert, Oriented X3, Cooperative, No acute distress Heart: Regular rate Lungs: Crackles, Other (few mild wheezes no distress) Abdomen: Normal bowel sounds, Soft, No tenderness Extremities: No cyanosis Skin: No significant lesion Labs LABS Laboratory Tests Test 11/10/18 11:49 11/10/18 16:17 11/10/18 19:38 11/11/18 07:36 Glucose (Fingerstick) 148 mg/dL (70-99) 172 mg/dL (70-99) 319 mg/dL (70-99) 105 mg/dL (70-99) Assessment and Plan Assessmemt and Plan Problems Medical Problems: (1) Acute and chronic respiratory failure Status: Acute (2) Chronic respiratory failure Status: Chronic (3) Chronic respiratory failure with hypoxia Status: Chronic (4) COPD with exacerbation Status: Acute (5) Depression Status: Chronic (6) Dyspnea Status: Acute (7) Hypertension Status: Chronic (8) Right conjunctivitis Status: Acute (9) Tachycardia Status: Acute Comment Review of Relevant I have reviewed the following items franki (where applicable) has been applied. Labs Laboratory Tests Test 11/09/18 11:44 11/09/18 16:49 11/09/18 21:01 11/10/18 05:22 Glucose (Fingerstick) 135 mg/dL (70-99) 240 mg/dL (70-99) 187 mg/dL (70-99) White Blood Count 6.0 x10^3/uL (4.0-11.0) Red Blood Count 3.01 x10^6/uL (4.30-5.70) Hemoglobin 6.6 g/dL (13.0-17.5) Hematocrit 21.2 % (39.0-53.0) Mean Corpuscular Volume 70 fL (79-100) Mean Corpuscular Hemoglobin 22 pg (25-35) Mean Corpuscular Hemoglobin Concent 31 g/dL (31-37) Red Cell Distribution Width 20.2 % (11.5-14.5) Platelet Count 195 x10^3/uL (140-400) Neutrophils (%) (Auto) 93 % (31-73) Lymphocytes (%) (Auto) 3 % (24-48) Monocytes (%) (Auto) 5 % (0-9) Eosinophils (%) (Auto) 0 % (0-3) Basophils (%) (Auto) 0 % (0-3) Neutrophils # (Auto) 5.5 x10^3/uL (1.8-7.7) Lymphocytes # (Auto) 0.2 x10^3/uL (1.0-4.8) Monocytes # (Auto) 0.3 x10^3/uL (0.0-1.1) Eosinophils # (Auto) 0.0 x10^3/uL (0.0-0.7) Basophils # (Auto) 0.0 x10^3/uL (0.0-0.2) Sodium Level 141 mmol/L (136-145) Potassium Level 4.5 mmol/L (3.5-5.1) Chloride Level 104 mmol/L (98-107) Carbon Dioxide Level 34 mmol/L (21-32) Anion Gap 3 (6-14) Blood Urea Nitrogen 17 mg/dL (8-26) Creatinine 0.7 mg/dL (0.7-1.3) Estimated GFR (Cockcroft-Gault) 139.7 Glucose Level 142 mg/dL (70-99) Calcium Level 8.7 mg/dL (8.5-10.1) Test 11/10/18 07:40 11/10/18 11:49 11/10/18 16:17 11/10/18 19:38 Glucose (Fingerstick) 134 mg/dL (70-99) 148 mg/dL (70-99) 172 mg/dL (70-99) 319 mg/dL (70-99) Test 11/11/18 07:36 Glucose (Fingerstick) 105 mg/dL (70-99) Laboratory Tests Test 11/10/18 11:49 11/10/18 16:17 11/10/18 19:38 11/11/18 07:36 Glucose (Fingerstick) 148 mg/dL (70-99) 172 mg/dL (70-99) 319 mg/dL (70-99) 105 mg/dL (70-99) Medications Current Medications Albuterol/ Ipratropium (Duoneb) 3 ml 1X ONCE NEB Last administered on 11/04/18at 18:55; Start 11/04/18 at 18:45; Stop 11/04/18 at 18:46; Status DC Methylprednisolone Sodium Succinate (SOLU-Medrol 125MG VIAL) 125 mg 1X ONCE IV ; Start 11/04/18 at 18:45; Stop 11/04/18 at 19:45; Status DC Methylprednisolone Sodium Succinate (SOLU-Medrol 125MG VIAL) 125 mg 1X ONCE IM Last administered on 11/04/18at 19:54; Start 11/04/18 at 19:45; Stop 11/04/18 at 19:48; Status DC Levofloxacin/ Dextrose 150 ml @ 100 mls/hr 1X ONCE IV Last administered on 11/04/18at 20:46; Start 11/04/18 at 20:30; Stop 11/04/18 at 21:59; Status DC Ondansetron HCl (Zofran) 4 mg PRN Q8HRS PRN IV NAUSEA/VOMITING; Start 11/04/18 at 20:30; Stop 11/05/18 at 20:29; Status DC Acetaminophen (Tylenol) 650 mg PRN Q4HRS PRN PO FEVER; Start 11/04/18 at 20:30; Stop 11/05/18 at 20:29; Status Cancel Albuterol/ Ipratropium (Duoneb) 3 ml RTQID NEB ; Start 11/05/18 at 08:00; Stop 11/04/18 at 21:33; Status DC Methylprednisolone Sodium Succinate (SOLU-Medrol 125MG VIAL) 125 mg Q12HR IV Last administered on 11/07/18at 08:08; Start 11/05/18 at 09:00; Stop 11/07/18 at 12:50; Status DC Vancomycin HCl (Vanco Per Pharmacy) 1 each PRN DAILY PRN MC SEE COMMENTS Last administered on 11/05/18at 14:14; Start 11/04/18 at 21:30; Stop 11/05/18 at 14:48; Status DC Piperacillin Sod/ Tazobactam Sod (Zosyn Per Pharmacy) 1 each PRN DAILY PRN MC SEE COMMENTS; Start 11/04/18 at 22:00; Stop 11/05/18 at 14:48; Status DC Polyethylene Glycol (miraLAX PACKET) 17 gm DAILY PO ; Start 11/05/18 at 09:00; Stop 11/06/18 at 09:22; Status DC Docusate Sodium (Colace) 100 mg DAILY PO Last administered on 11/10/18at 08:16; Start 11/05/18 at 09:00 Albuterol/ Ipratropium (Duoneb) 3 ml Q4HRS W/A NEB Last administered on 11/05/18 15:12; Start 11/04/18 at 22:00; Stop 11/05/18 at 19:00; Status DC Albuterol Sulfate (Ventolin Neb Soln) 2.5 mg PRN QID PRN NEB dyspnea Last administered on 11/09/18 03:21; Start 11/04/18 at 21:45 Vancomycin HCl 1.5 gm/Sodium Chloride 500 ml @ 250 mls/hr 1X ONCE IV Last administered on 11/04/18 23:09; Start 11/04/18 at 22:00; Stop 11/04/18 at 23:59; Status DC Piperacillin Sod/ Tazobactam Sod 3.375 gm/Sodium Chloride 50 ml @ 100 mls/hr Q6HRS IV Last administered on 11/05/18 12:24; Start 11/05/18 at 00:00; Stop 11/05/18 at 14:49; Status DC Acetaminophen (Tylenol) 650 mg PRN Q4HRS PRN PO TEMP OVER 100.4F OR MILD PAIN Last administered on 11/09/18 21:35; Start 11/04/18 at 22:45 Aspirin (Ecotrin) 81 mg DAILYWBKFT PO Last administered on 11/10/18 08:13; Start 11/05/18 at 08:00 Lorazepam (Ativan) 1 mg PRN BID PRN PO ANXIETY / AGITATION Last administered on 11/10/18 21:25; Start 11/04/18 at 22:45 Metformin HCl (Glucophage) 500 mg DAILYWBKFT PO Last administered on 11/10/18 08:13; Start 11/05/18 at 08:00 Metoclopramide HCl (Reglan) 5 mg QID PO Last administered on 11/10/18 21:21; Start 11/05/18 at 09:00 Montelukast Sodium (Singulair) 10 mg QHS PO Last administered on 11/10/18 21:21; Start 11/05/18 at 21:00 Oxycodone/ Acetaminophen (Percocet 5/325) 1 tab PRN Q6HRS PRN PO SEVERE PAIN Last administered on 11/08/18 08:23; Start 11/04/18 at 22:45 Polyethylene Glycol (miraLAX PACKET) 17 gm BID PO Last administered on 11/09/18 08:42; Start 11/05/18 at 09:00; Stop 11/09/18 at 13:25; Status DC Prednisone (Prednisone) 10 mg DAILY PO ; Start 11/05/18 at 09:00; Status UNV Tizanidine HCl (Zanaflex) 4 mg PRN TID PRN PO MUSCLE SPASMS Last administered on 11/05/18 09:33; Start 11/04/18 at 22:45 Azithromycin (Zithromax) 250 mg DAILY PO Last administered on 11/10/18 08:14; Start 11/05/18 at 09:00 Nystatin (Nystatin Oral Susp) 5 ml [id number] Last administered on 11/10/18 21:20; Start 11/05/18 at 09:00 Tramadol HCl (Ultram) 50 mg PRN Q6HRS PRN PO MODERATE PAIN Last administered on 11/10/18 17:32; Start 11/04/18 at 23:00 Pantoprazole Sodium (Protonix) 20 mg DAILYAC PO Last administered on 11/10/18 08:13; Start 11/05/18 at 07:30 Vancomycin HCl 1 gm/Sodium Chloride 250 ml @ 250 mls/hr Q12H IV Last administered on 11/05/18 09:33; Start 11/05/18 at 10:00; Stop 11/05/18 at 14:49; Status DC Vancomycin HCl (Vancomycin Trough Level) 1 each 1X ONCE MC ; Start 11/06/18 at 09:30; Stop 11/05/18 at 14:49; Status DC Metoclopramide HCl (Reglan) 10 mg STK-MED ONCE .ROUTE ; Start 11/05/18 at 07:28; Stop 11/05/18 at 07:28; Status DC Lactobacillus Rhamnosus (Culturelle) 1 cap BID PO Last administered on 11/10/18 21:21; Start 11/05/18 at 15:00 Albuterol/ Ipratropium (Duoneb) 3 ml RTQID NEB Last administered on 11/11/18 07:20; Start 11/05/18 at 20:00 Methylprednisolone Sodium Succinate (SOLU-Medrol 125MG VIAL) 60 mg Q12HR IV Last administered on 11/08/18 21:01; Start 11/07/18 at 21:00; Stop 11/09/18 at 08:11; Status DC Rivaroxaban (Xarelto) 20 mg DAILYWSUP PO Last administered on 11/09/18 17:21; Start 11/08/18 at 19:00; Stop 11/10/18 at 13:54; Status DC Benzonatate (Tessalon Perle) 100 mg [id number] PO Last administered on 11/10/18 21:21; Start 11/08/18 at 21:00 Temazepam (Restoril) 7.5 mg PRN QHS PRN PO INSOMNIA Last administered on 11/10/18 21:25; Start 11/08/18 at 18:45 Polyethylene Glycol (miraLAX PACKET) 17 gm DAILY PO Last administered on 11/10/18 08:13; Start 11/09/18 at 09:00 Magnesium Hydroxide (Milk Of Magnesia) 2,400 mg PRN DAILY PRN PO CONSTIPATION Last administered on 11/09/18 21:35; Start 11/08/18 at 18:45 Methylprednisolone Sodium Succinate (SOLU-Medrol 40MG VIAL) 40 mg Q12HR IV Last administered on 11/10/18 08:14; Start 11/09/18 at 09:00; Stop 11/10/18 at 08:19; Status DC Fluticasone Propionate (Flonase) 2 spray DAILY NS Last administered on 11/09/18 08:46; Start 11/09/18 at 09:00 Info (Anti-Coagulation Monitoring By Pharmacy) 1 each PRN DAILY PRN MC SEE COMMENTS Last administered on 11/10/18 13:47; Start 11/09/18 at 13:30; Stop 11/10/18 at 13:59; Status DC Magnesium Citrate (Citroma) 296 ml PRN 1X PRN PO CONSTIPATION Last administered on 11/09/18 21:35; Start 11/09/18 at 21:00 Prednisone (Prednisone) 40 mg DAILY PO Last administered on 11/10/18 11:34; Start 11/10/18 at 09:00 Active Scripts Active Miralax (Polyethylene Glycol 3350) 119 Gm Powder 17 Gm PO BID Prednisone (Prednisone) 10 Mg Tablet 10 Mg PO DAILY 5 Days Nystatin 100,000 Unit/1 Ml Oral.susp 5 Ml SWSW [id number] 5 Days Duoneb 0.5-3(2.5) Mg/3 Ml (Albuterol/Ipratropium) 3 Ml Ampul.neb 3 Ml NEB QID Tessalon Perle (Benzonatate) 100 Mg Capsule 1 Cap PO TID Montelukast Sodium Tablet (Montelukast Sodium) 10 Mg Tablet 10 Mg PO QHS Lidocaine PATCH (Lidocaine) 1 Each Adh..patch 1 Each TP DAILY 30 Days REMOVE AFTER 12 HOURS Ativan (Lorazepam) 1 Mg Tablet 1 Mg PO PRN BID PRN Humalog (Insulin Lispro) 100 Unit/1 Ml Insuln.pen 0 Units SQ TIDWMEALS 30 Days Aspirin Ec (Aspirin) 81 Mg Tablet.dr 81 Mg PO DAILYWBKFT 30 Days Cyclobenzaprine Hcl 5 Mg Tablet 5 Mg PO PRN TID PRN Tramadol Hcl 50 Mg Tablet 50 Mg PO PRN Q6HRS PRN 6 Days Guaifenesin 100 Mg/5 Ml Liquid 200 Mg PO PRN Q4HRS PRN 30 Days Tylenol (Acetaminophen) 325 Mg Tablet 650 Mg PO PRN Q4HRS PRN 10 Days Ventolin Hfa Inhaler (Albuterol Sulfate) 18 Gm Hfa.aer.ad 2 Puff INH Q4HRS Reglan (Metoclopramide Hcl) 10 Mg Tablet 0.5 Tab PO QID 30 Days Reported Tizanidine Hcl 4 Mg Tablet 4 Mg PO TID PRN Percocet 5-325 Mg Tablet (Oxycodone/Acetaminophen) 1 Each Tablet 1 Tab PO PRN Q6HRS PRN Azithromycin Tablet (Azithromycin) 250 Mg Tablet 250 Mg PO DAILY Xarelto (Rivaroxaban) 20 Mg Tablet 20 Mg PO DAILY Metformin Hcl 500 Mg Tablet 500 Mg PO DAILYWBKFT Pulmicort (Budesonide) 0.25 Mg/2 Ml Ampul.neb 1 Vial NEB BID Albuterol Sulfate Neb Soln (Albuterol Sulfate) 2.5 Mg/3 Ml Vial.neb 1 Vial NEB PRN Q2HR PRN Furosemide 40 Mg Tablet 1 Tab PO DAILY Vitamin D3 (Cholecalciferol (Vitamin D3)) 5,000 Unit Tablet 5,000 Unit PO DAILY Potassium Chloride 20 Meq Tablet.er 20 Meq PO DAILY Protonix (Pantoprazole Sodium) 20 Mg Tablet.dr 1 Tab PO DAILY Atorvastatin Calcium 10 Mg Tablet 10 Mg PO HS Symbicort 160-4.5 Mcg Inhaler (Budesonide/Formoterol Fumarate) 10.2 Gm Hfa.aer.ad 2 Puff IH BID Vitals/I & O Vital Sign - Last 24 Hours 11/10/18 11/10/18 11/10/18 11/10/18 11:00 11:10 11:22 11:25 Temp 98.5 98.5 98.5 98.5 98.5 98.5 Pulse 96 96 94 Resp 14 17 18 B/P (MAP) 112/67 (82) 112/67 118/69 Pulse Ox 98 100 O2 Delivery Nasal Cannula Nasal Cannula O2 Flow Rate 2.0 3.0 11/10/18 11/10/18 11/10/18 11/10/18 11:35 11:40 11:55 12:45 Temp 98.5 98.5 Pulse 102 94 Resp 18 18 18 B/P (MAP) 115/84 128/80 Pulse Ox 100 O2 Delivery Nasal Cannula Nasal Cannula O2 Flow Rate 3.0 3.0 11/10/18 11/10/18 11/10/18 11/10/18 15:00 15:11 15:49 17:32 Temp 99.0 99.0 99.0 99.0 Pulse 85 85 Resp 16 16 17 B/P (MAP) 126/82 (97) 126/82 Pulse Ox 94 98 O2 Delivery Nasal Cannula Nasal Cannula Nasal Cannula O2 Flow Rate 2.0 3.0 3.0 11/10/18 11/10/18 11/10/18 11/10/18 18:32 19:30 20:00 20:59 Temp 98.7 98.7 Pulse 102 Resp 18 18 B/P (MAP) 111/75 (87) Pulse Ox 98 99 O2 Delivery Nasal Cannula Nasal Cannula Nasal Cannula Nasal Cannula O2 Flow Rate 2.0 2.0 3.0 11/11/18 11/11/18 11/11/18 03:48 07:20 07:43 Temp 98.8 98.1 98.8 98.1 Pulse 98 82 Resp 20 B/P (MAP) 123/79 (94) 132/81 (98) Pulse Ox 97 99 100 O2 Delivery Nasal Cannula Nasal Cannula O2 Flow Rate 3.0 2.0 Intake and Output 11/10/18 11/10/18 11/11/18 15:00 23:00 07:00 Intake Total 1186 ml 400 ml 0 ml Output Total 975 ml 175 ml Balance 211 ml 225 ml 0 ml TOMAS BAIG MD Nov 11, 2018 08:32
[2018-11-11] MEDS: POLYETHYLENE GLYCOL 3350 17 GM PACKET. PO SCH (08:36)
[2018-11-11] MEDS: NYSTATIN 100,000 UNITS/ML 5 ML ORAL.SUSP. SWSW SCH ×3 (08:36→17:01)
[2018-11-11] MEDS: LACTOBACILLUS RHAMNOSUS GG 1 CAPSULE. PO SCH (08:37)
[2018-11-11] MEDS: ASPIRIN ENTERIC COATED 81 MG TABLET.DR. PO SCH (08:37)
[2018-11-11] MEDS: PANTOPRAZOLE 40 MG TABLET.DR. PO SCH (08:37)
[2018-11-11] MEDS: predniSONE 20 MG TABLET PO SCH (08:37)
[2018-11-11] MEDS: DOCUSATE SODIUM 100 MG CAPSULE. PO SCH (08:39)
[2018-11-11] MEDS: METOCLOPRAMIDE 10 MG TABLET. PO SCH ×3 (08:39→17:01)
[2018-11-11] MEDS: metFORMIN 500 MG TABLET PO SCH (08:39)
[2018-11-11] MEDS: AZITHROMYCIN 250 MG TABLET. PO SCH (08:39)
[2018-11-11] MEDS: BENZONATATE 100 MG CAPSULE. PO SCH ×2 (08:39→13:55)
[2018-11-11] MEDS: FLUTICASONE 50MCG/NASAL SPRAY 16GM BOTTLE. NS SCH (09:00)
[2018-11-11 10:42] LABS: HEMATOCRIT 27.6 % (39.0-53.0); HEMOGLOBIN 8.7 g/dL (13.0-17.5)
--- NOTE | 2018-11-11 11:12 | PDOC3 ---
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 Approximately 40 percent T8 vertebral body height loss is new from 09/08/2018 exam. Correlate for point tenderness in the region. MRI thoracic spine could be obtained for further evaluation if there is concern for acute fracture. 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 following with pulm UNDERWEIGHT anemia hgb 6.8 transfused 11/10 hgb now 8.4 patient is not capable of living independently at home and should be at the correction. but no housing is availabe, WORKING ON PLACEMENT, PT HOMELESS will live at sisters's home, but she smokes 11/10 pt now states he can stay at sisters home 28 min pt exam, chart review d/c planning, > 50% of time spent with exam, chart review, pt care coordination Vitals Vitals Vital Signs Date Time Temp Pulse Resp B/P (MAP) Pulse Ox O2 Delivery O2 Flow Rate FiO2 11/11/18 07:43 98.1 82 20 132/81 (98) 100 Nasal Cannula 2.0 98.1 Physical Exam Physical Exam HENT: Normocephalic, atraumatic, bilateral external ears normal, oropharynx moist, no oral exudates, nose normal. [ Cardiovascular:Heart rate regular rhythm, no murmur [] Lungs & Thorax: Decreased breath sounds, occasional wheeze Abdomen: Bowel sounds normal, soft, no tenderness, no masses, no pulsatile masses. [] Skin: Warm, dry, no erythema, no rash. [] Extremities: No tenderness, no cyanosis, no edema. [] Neurologic: Alert and oriented X 3, no focal deficits noted. [] Psychologic: Affect normal, judgement POOR, mood normal. CAPILLARY REFILL < 2 SEC [] General: Alert, Oriented X3, Cooperative, No acute distress Heart: Regular rate Lungs: Crackles, Other (few mild wheezes no distress) Abdomen: Normal bowel sounds, Soft, No tenderness Extremities: No cyanosis Skin: No significant lesion FINAL DIAGNOSIS Problems Medical Problems: (1) Acute and chronic respiratory failure Status: Acute (2) Chronic respiratory failure Status: Chronic (3) Chronic respiratory failure with hypoxia Status: Chronic (4) COPD with exacerbation Status: Acute (5) Depression Status: Chronic (6) Dyspnea Status: Acute (7) Hypertension Status: Chronic (8) Right conjunctivitis Status: Acute (9) Tachycardia Status: Acute Brief Hospital Course Mr. Nash is a 58 old [sex] who presented with [ ] CONDITION AT DISCHARGE: Improved Discharge Medications Current Medications Albuterol/ Ipratropium (Duoneb) 3 ml 1X ONCE NEB Last administered on 11/04/18at 18:55; Start 11/04/18 at 18:45; Stop 11/04/18 at 18:46; Status DC Methylprednisolone Sodium Succinate (SOLU-Medrol 125MG VIAL) 125 mg 1X ONCE IV ; Start 11/04/18 at 18:45; Stop 11/04/18 at 19:45; Status DC Methylprednisolone Sodium Succinate (SOLU-Medrol 125MG VIAL) 125 mg 1X ONCE IM Last administered on 11/04/18at 19:54; Start 11/04/18 at 19:45; Stop 11/04/18 at 19:48; Status DC Levofloxacin/ Dextrose 150 ml @ 100 mls/hr 1X ONCE IV Last administered on 11/04/18at 20:46; Start 11/04/18 at 20:30; Stop 11/04/18 at 21:59; Status DC Ondansetron HCl (Zofran) 4 mg PRN Q8HRS PRN IV NAUSEA/VOMITING; Start 11/04/18 at 20:30; Stop 11/05/18 at 20:29; Status DC Acetaminophen (Tylenol) 650 mg PRN Q4HRS PRN PO FEVER; Start 11/04/18 at 20:30; Stop 11/05/18 at 20:29; Status Cancel Albuterol/ Ipratropium (Duoneb) 3 ml RTQID NEB ; Start 11/05/18 at 08:00; Stop 11/04/18 at 21:33; Status DC Methylprednisolone Sodium Succinate (SOLU-Medrol 125MG VIAL) 125 mg Q12HR IV Last administered on 11/07/18at 08:08; Start 11/05/18 at 09:00; Stop 11/07/18 at 12:50; Status DC Vancomycin HCl (Vanco Per Pharmacy) 1 each PRN DAILY PRN MC SEE COMMENTS Last administered on 11/05/18at 14:14; Start 11/04/18 at 21:30; Stop 11/05/18 at 14:48; Status DC Piperacillin Sod/ Tazobactam Sod (Zosyn Per Pharmacy) 1 each PRN DAILY PRN MC SEE COMMENTS; Start 11/04/18 at 22:00; Stop 11/05/18 at 14:48; Status DC Polyethylene Glycol (miraLAX PACKET) 17 gm DAILY PO ; Start 11/05/18 at 09:00; Stop 11/06/18 at 09:22; Status DC Docusate Sodium (Colace) 100 mg DAILY PO Last administered on 11/11/18at 08:39; Start 11/05/18 at 09:00 Albuterol/ Ipratropium (Duoneb) 3 ml Q4HRS W/A NEB Last administered on 11/05/18at 15:12; Start 11/04/18 at 22:00; Stop 11/05/18 at 19:00; Status DC Albuterol Sulfate (Ventolin Neb Soln) 2.5 mg PRN QID PRN NEB dyspnea Last administered on 11/09/18at 03:21; Start 11/04/18 at 21:45 Vancomycin HCl 1.5 gm/Sodium Chloride 500 ml @ 250 mls/hr 1X ONCE IV Last administered on 11/04/18at 23:09; Start 11/04/18 at 22:00; Stop 11/04/18 at 2 3:59; Status DC Piperacillin Sod/ Tazobactam Sod 3.375 gm/Sodium Chloride 50 ml @ 100 mls/hr Q6HRS IV Last administered on 11/05/18at 12:24; Start 11/05/18 at 00:00; Stop 11/05/18 at 14:49; Status DC Acetaminophen (Tylenol) 650 mg PRN Q4HRS PRN PO TEMP OVER 100.4F OR MILD PAIN Last administered on 11/09/18 21:35; Start 11/04/18 at 22:45 Aspirin (Ecotrin) 81 mg DAILYWBKFT PO Last administered on 11/11/18 08:37; Start 11/05/18 at 08:00 Lorazepam (Ativan) 1 mg PRN BID PRN PO ANXIETY / AGITATION Last administered on 11/10/18 21:25; Start 11/04/18 at 22:45 Metformin HCl (Glucophage) 500 mg DAILYWBKFT PO Last administered on 11/11/18 08:39; Start 11/05/18 at 08:00 Metoclopramide HCl (Reglan) 5 mg QID PO Last administered on 11/11/18 08:39; Start 11/05/18 at 09:00 Montelukast Sodium (Singulair) 10 mg QHS PO Last administered on 11/10/18 21:21; Start 11/05/18 at 21:00 Oxycodone/ Acetaminophen (Percocet 5/325) 1 tab PRN Q6HRS PRN PO SEVERE PAIN Last administered on 11/08/18 08:23; Start 11/04/18 at 22:45 Polyethylene Glycol (miraLAX PACKET) 17 gm BID PO Last administered on 11/09/18 08:42; Start 11/05/18 at 09:00; Stop 11/09/18 at 13:25; Status DC Prednisone (Prednisone) 10 mg DAILY PO ; Start 11/05/18 at 09:00; Status UNV Tizanidine HCl (Zanaflex) 4 mg PRN TID PRN PO MUSCLE SPASMS Last administered on 11/05/18 09:33; Start 11/04/18 at 22:45 Azithromycin (Zithromax) 250 mg DAILY PO Last administered on 11/11/18 08:39; Start 11/05/18 at 09:00 Nystatin (Nystatin Oral Susp) 5 ml [id number] Last administered on 11/11/18 08:36; Start 11/05/18 at 09:00 Tramadol HCl (Ultram) 50 mg PRN Q6HRS PRN PO MODERATE PAIN Last administered on 11/10/18 17:32; Start 11/04/18 at 23:00 Pantoprazole Sodium (Protonix) 20 mg DAILYAC PO Last administered on 11/11/18 08:37; Start 11/05/18 at 07:30 Vancomycin HCl 1 gm/Sodium Chloride 250 ml @ 250 mls/hr Q12H IV Last administered on 11/05/18 09:33; Start 11/05/18 at 10:00; Stop 11/05/18 at 14:49; Status DC Vancomycin HCl (Vancomycin Trough Level) 1 each 1X ONCE MC ; Start 11/06/18 at 09:30; Stop 11/05/18 at 14:49; Status DC Metoclopramide HCl (Reglan) 10 mg STK-MED ONCE .ROUTE ; Start 11/05/18 at 07:28; Stop 11/05/18 at 07:28; Status DC Lactobacillus Rhamnosus (Culturelle) 1 cap BID PO Last administered on 11/11 08:37; Start 11/05/18 at 15:00 Albuterol/ Ipratropium (Duoneb) 3 ml RTQID NEB Last administered on 11/11/18 07:20; Start 11/05/18 at 20:00 Methylprednisolone Sodium Succinate (SOLU-Medrol 125MG VIAL) 60 mg Q12HR IV Last administered on 11/08/18 21:01; Start 11/07/18 at 21:00; Stop 11/09/18 at 08:11; Status DC Rivaroxaban (Xarelto) 20 mg DAILYWSUP PO Last administered on 11/09/18 17:21; Start 11/08/18 at 19:00; Stop 11/10/18 at 13:54; Status DC Benzonatate (Tessalon Perle) 100 mg [id number] PO Last administered on 11/11/18 08:39; Start 11/08/18 at 21:00 Temazepam (Restoril) 7.5 mg PRN QHS PRN PO INSOMNIA Last administered on 11/10/18 21:25; Start 11/08/18 at 18:45 Polyethylene Glycol (miraLAX PACKET) 17 gm DAILY PO Last administered on 11/11/18 08:36; Start 11/09/18 at 09:00 Magnesium Hydroxide (Milk Of Magnesia) 2,400 mg PRN DAILY PRN PO CONSTIPATION Last administered on 11/09/18 21:35; Start 11/08/18 at 18:45 Methylprednisolone Sodium Succinate (SOLU-Medrol 40MG VIAL) 40 mg Q12HR IV Last administered on 11/10/18at 08:14; Start 11/09/18 at 09:00; Stop 11/10/18 at 08:19; Status DC Fluticasone Propionate (Flonase) 2 spray DAILY NS Last administered on 11/09/18 08:46; Start 11/09/18 at 09:00 Info (Anti-Coagulation Monitoring By Pharmacy) 1 each PRN DAILY PRN MC SEE COMMENTS Last administered on 11/10/18 13:47; Start 11/09/18 at 13:30; Stop 11/10/18 at 13:59; Status DC Magnesium Citrate (Citroma) 296 ml PRN 1X PRN PO CONSTIPATION Last administered on 11/09/18 21:35; Start 11/09/18 at 21:00 Prednisone (Prednisone) 40 mg DAILY PO Last administered on 11/11/18at 08:37; Start 11/10/18 at 09:00 Active Scripts Active Miralax (Polyethylene Glycol 3350) 119 Gm Powder 17 Gm PO BID Prednisone (Prednisone) 10 Mg Tablet 10 Mg PO DAILY 5 Days Nystatin 100,000 Unit/1 Ml Oral.susp 5 Ml SWSW [id number] 5 Days Duoneb 0.5-3(2.5) Mg/3 Ml (Albuterol/Ipratropium) 3 Ml Ampul.neb 3 Ml NEB QID Tessalon Perle (Benzonatate) 100 Mg Capsule 1 Cap PO TID Montelukast Sodium Tablet (Montelukast Sodium) 10 Mg Tablet 10 Mg PO QHS Lidocaine PATCH (Lidocaine) 1 Each Adh..patch 1 Each TP DAILY 30 Days REMOVE AFTER 12 HOURS Ativan (Lorazepam) 1 Mg Tablet 1 Mg PO PRN BID PRN Humalog (Insulin Lispro) 100 Unit/1 Ml Insuln.pen 0 Units SQ TIDWMEALS 30 Days Aspirin Ec (Aspirin) 81 Mg Tablet.dr 81 Mg PO DAILYWBKFT 30 Days Cyclobenzaprine Hcl 5 Mg Tablet 5 Mg PO PRN TID PRN Tramadol Hcl 50 Mg Tablet 50 Mg PO PRN Q6HRS PRN 6 Days Guaifenesin 100 Mg/5 Ml Liquid 200 Mg PO PRN Q4HRS PRN 30 Days Tylenol (Acetaminophen) 325 Mg Tablet 650 Mg PO PRN Q4HRS PRN 10 Days Ventolin Hfa Inhaler (Albuterol Sulfate) 18 Gm Hfa.aer.ad 2 Puff INH Q4HRS Reglan (Metoclopramide Hcl) 10 Mg Tablet 0.5 Tab PO QID 30 Days Reported Tizanidine Hcl 4 Mg Tablet 4 Mg PO TID PRN Percocet 5-325 Mg Tablet (Oxycodone/Acetaminophen) 1 Each Tablet 1 Tab PO PRN Q6HRS PRN Azithromycin Tablet (Azithromycin) 250 Mg Tablet 250 Mg PO DAILY Xarelto (Rivaroxaban) 20 Mg Tablet 20 Mg PO DAILY Metformin Hcl 500 Mg Tablet 500 Mg PO DAILYWBKFT Pulmicort (Budesonide) 0.25 Mg/2 Ml Ampul.neb 1 Vial NEB BID Albuterol Sulfate Neb Soln (Albuterol Sulfate) 2.5 Mg/3 Ml Vial.neb 1 Vial NEB PRN Q2HR PRN Furosemide 40 Mg Tablet 1 Tab PO DAILY Vitamin D3 (Cholecalciferol (Vitamin D3)) 5,000 Unit Tablet 5,000 Unit PO DAILY Potassium Chloride 20 Meq Tablet.er 20 Meq PO DAILY Protonix (Pantoprazole Sodium) 20 Mg Tablet.dr 1 Tab PO DAILY Atorvastatin Calcium 10 Mg Tablet 10 Mg PO HS Symbicort 160-4.5 Mcg Inhaler (Budesonide/Formoterol Fumarate) 10.2 Gm Hfa.aer.ad 2 Puff IH BID Vital Signs Vital Signs Date Time Temp Pulse Resp B/P (MAP) Pulse Ox O2 Delivery O2 Flow Rate FiO2 11/11/18 08:00 Nasal Cannula 2.0 11/11/18 07:43 98.1 82 20 132/81 (98) 100 98.1 Labs Laboratory Tests Test 11/09/18 11:44 11/09/18 16:49 11/09/18 21:01 11/10/18 05:22 Glucose (Fingerstick) 135 mg/dL (70-99) 240 mg/dL (70-99) 187 mg/dL (70-99) White Blood Count 6.0 x10^3/uL (4.0-11.0) Red Blood Count 3.01 x10^6/uL (4.30-5.70) Hemoglobin 6.6 g/dL (13.0-17.5) Hematocrit 21.2 % (39.0-53.0) Mean Corpuscular Volume 70 fL (79-100) Mean Corpuscular Hemoglobin 22 pg (25-35) Mean Corpuscular Hemoglobin Concent 31 g/dL (31-37) Red Cell Distribution Width 20.2 % (11.5-14.5) Platelet Count 195 x10^3/uL (140-400) Neutrophils (%) (Auto) 93 % (31-73) Lymphocytes (%) (Auto) 3 % (24-48) Monocytes (%) (Auto) 5 % (0-9) Eosinophils (%) (Auto) 0 % (0-3) Basophils (%) (Auto) 0 % (0-3) Neutrophils # (Auto) 5.5 x10^3/uL (1.8-7.7) Lymphocytes # (Auto) 0.2 x10^3/uL (1.0-4.8) Monocytes # (Auto) 0.3 x10^3/uL (0.0-1.1) Eosinophils # (Auto) 0.0 x10^3/uL (0.0-0.7) Basophils # (Auto) 0.0 x10^3/uL (0.0-0.2) Sodium Level 141 mmol/L (136-145) Potassium Level 4.5 mmol/L (3.5-5.1) Chloride Level 104 mmol/L (98-107) Carbon Dioxide Level 34 mmol/L (21-32) Anion Gap 3 (6-14) Blood Urea Nitrogen 17 mg/dL (8-26) Creatinine 0.7 mg/dL (0.7-1.3) Estimated GFR (Cockcroft-Gault) 139.7 Glucose Level 142 mg/dL (70-99) Calcium Level 8.7 mg/dL (8.5-10.1) Test 11/10/18 07:40 11/10/18 11:49 11/10/18 16:17 11/10/18 19:38 Glucose (Fingerstick) 134 mg/dL (70-99) 148 mg/dL (70-99) 172 mg/dL (70-99) 319 mg/dL (70-99) Test 11/11/18 07:36 11/11/18 07:44 Glucose (Fingerstick) 105 mg/dL (70-99) Hemoglobin 8.7 g/dL (13.0-17.5) Hematocrit 27.6 % (39.0-53.0) Laboratory Tests Test 11/10/18 11:49 11/10/18 16:17 11/10/18 19:38 11/11/18 07:36 Glucose (Fingerstick) 148 mg/dL (70-99) 172 mg/dL (70-99) 319 mg/dL (70-99) 105 mg/dL (70-99) Test 11/11/18 07:44 Hemoglobin 8.7 g/dL (13.0-17.5) Hematocrit 27.6 % (39.0-53.0) Allergies Allergies Coded Allergies Type Severity Reaction Last Updated Verified No Known Medication Allergies Allergy Unknown 08/26/18 Yes Disposition/Orders: D/C to Home, D/C to Home w/ HH Patient Instructions d/c planning 28 min TOMAS BAIG MD Nov 11, 2018 11:12
[2018-11-11] MEDS ORDERED: FLUT16SP NS (11:18)
[2018-11-11] MEDS ORDERED: PRED20TA PO (11:18)
[2018-11-11] MEDS ORDERED: LACT1CAP19 PO (11:18)
[2018-11-11] MEDS ORDERED: DOCU-109 PO (11:18)
--- NOTE | 2018-11-11 11:20 | SNU/HH DC ---
DISCHARGE WITH HOME HEALTH DISCHARGE INFORMATION: Final Diagnosis: Problems Medical Problems: (1) Acute and chronic respiratory failure Status: Acute (2) Chronic respiratory failure Status: Chronic (3) Chronic respiratory failure with hypoxia Status: Chronic (4) COPD with exacerbation Status: Acute (5) Depression Status: Chronic (6) Dyspnea Status: Acute (7) Hypertension Status: Chronic (8) Right conjunctivitis Status: Acute (9) Tachycardia Status: Acute Condition on Discharge: Guarded CODE STATUS: Code Status: Full HOME HEALTH: Face to Face: I certify this patient is under my care and that I, or a nurse practitioner or physician's fleet administrative assistant working with me, had a face to face encounter that meets the physician face to face encounter requirements with this patient on []. Medical Complications: COPD RN For Eval/Treatment: Yes Physical Therapy For: Evalulation/Treatment Occupational Therapy For: Evaluation/Treatment Speech Language Pathology For: Evaluation/Treatment Home Health Aide For: Self-care POURER OFF For: Community Resources Pt Meets Homebound Status: Unsteady balance w/ amb, POST DISCHARGE ORDERS: Activity Instructions for Disc: Activity as tolerated Weight Bearing Status after Di: No restrictions, Full weight bearing, As tolerated DIET AFTER DISCHARGE: Cardiac Wound/Incision Care: No wound care needed CHECKS AFTER DISCHARGE: Checks after discharge: Check blood press - daily, Check blood sugar, ac/hs TREATMENT/EQUIPMENT ORDERS: Adaptive Equipment Issued: None, Front wheeled walker Discharge Respiratory Equipmen: Oxygen CERTIFICATION STATEMENT: Certification Statement: Certification Statement: Based on the above finding, I certify that this patient is confined to the home and needs intermittent shelter care, physical therapy and/or speech therapy, or continues to need occupational therapy.~ This patient is under my care, and I have initiated the establishment of the plan of care.~ This patient will be followed by myself or a community physician who will periodically review the plan of care. Home Meds Active Scripts Prednisone (PREDNISONE) 20 Mg Tablet, 40 MG PO DAILY for copd for 14 Days, #60 TAB Prov:TOMAS BAIG MD 11/11/18 Lactobacillus Rhamnosus Gg (CULTURELLE) 1 Each Cap.sprink, 1 CAP PO BID for supplement for 30 Days, #60 CAP Prov:TOMAS BAIG MD 11/11/18 Docusate Sodium (COLACE) 100 Mg Capsule, 100 MG PO DAILY for prevent constipation for 30 Days, #30 CAP Prov:TOMAS BAIG MD 11/11/18 Fluticasone Propionate (FLUTICASONE PROPIONATE NASAL SPRAY) 16 Gm [place]ward[place].susp, 2 SPRAY NS DAILY for allergies for 30 Days, #1 SPRAY Prov:TOMAS BAIG MD 11/11/18 Polyethylene Glycol 3350 (MIRALAX) 119 Gm Powder, 17 GM PO BID, #527 GM Prov:SHAYY GRIFFITH MD 11/03/18 Nystatin (NYSTATIN) 100,000 Unit/1 Ml Oral.susp, 5 ML SWSW [id number] for Thrush for 5 Days, #100 MISC Prov:KIRSTIE TREVINO MD 10/31/18 Ipratropium/Albuterol Sulfate (DUONEB 0.5-3(2.5) MG/3 ML) 3 Ml Ampul.neb, 3 ML NEB QID for copd, #120 EACH Prov:RAI DURANT MD 10/28/18 Benzonatate (TESSALON PERLE) 100 Mg Capsule, 1 CAP PO TID for cough, #21 CAP Prov:RAI DURANT MD 10/28/18 Montelukast Sodium (MONTELUKAST SODIUM TABLET ) 10 Mg Tablet, 10 MG PO QHS for copd, #60 TAB Prov:RAI DURANT MD 10/28/18 Lidocaine (Lidocaine PATCH ) 1 Each Adh..patch, 1 EACH TP DAILY for FOR LOCAL PAIN for 30 Days, #30 PATCH REMOVE AFTER 12 HOURS Prov:RAI DURANT MD 09/11/18 Insulin Lispro (HUMALOG) 100 Unit/1 Ml Insuln.pen, 0 UNITS SQ TIDWMEALS for glucose for 30 Days, #1 EACH Prov:TOMAS BAIG MD 08/28/18 Aspirin (ASPIRIN EC) 81 Mg Tablet.dr, 81 MG PO DAILYWBKFT for heart for 30 Days, #30 TAB.SR Prov:TOMAS BAIG MD 08/28/18 Tramadol Hcl (TRAMADOL HCL) 50 Mg Tablet, 50 MG PO PRN Q6HRS PRN for PAIN for 6 Days, #24 TAB Prov:KIRSTIE TREVINO MD 07/12/18 Guaifenesin (GUAIFENESIN) 100 Mg/5 Ml Liquid, 200 MG PO PRN Q4HRS PRN for COUGH for 30 Days, #120 LIQUID Prov:TOMAS BAIG MD 05/30/18 Acetaminophen (TYLENOL) 325 Mg Tablet, 650 MG PO PRN Q4HRS PRN for TEMP OVER 100.4F OR MILD PAIN for 10 Days, #30 TAB Prov:TOMAS BAIG MD 05/30/18 Albuterol Sulfate (VENTOLIN HFA INHALER) 18 Gm Hfa.aer.ad, 2 PUFF INH Q4HRS for FOR ASTHMA, #1 INHALER 0 Refills Prov:SD JON CARDIOGRAPHER 05/10/18 Metoclopramide Hcl (REGLAN) 10 Mg Tablet, 0.5 TAB PO QID for gerd for 30 Days, #60 TAB Prov:TOMAS BAIG MD 02/14/18 Reported Medications Tizanidine Hcl (TIZANIDINE HCL) 4 Mg Tablet, 4 MG PO TID PRN for MUSCLE SPASMS, TAB 11/04/18 Azithromycin (AZITHROMYCIN TABLET) 250 Mg Tablet, 250 MG PO DAILY for ANTI- BIOTIC, TAB 0 Refills 11/04/18 Rivaroxaban (XARELTO) 20 Mg Tablet, 20 MG PO DAILY for stroke prevention, TAB 09/09/18 Metformin Hcl (METFORMIN HCL) 500 Mg Tablet, 500 MG PO DAILYWBKFT for ANTI- DIABETIC, TAB 0 Refills 09/09/18 Budesonide (PULMICORT) 0.25 Mg/2 Ml Ampul.neb, 1 VIAL NEB BID for SHORT OF BREATH, #30 VIAL 08/25/18 Albuterol Sulfate (ALBUTEROL SULFATE NEB SOLN) 2.5 Mg/3 Ml Vial.neb, 1 VIAL NEB PRN Q2HR PRN for SEDATION, #50 VIAL 08/25/18 Furosemide (FUROSEMIDE) 40 Mg Tablet, 1 TAB PO DAILY for water, #30 TAB 5 Refills 06/20/18 Cholecalciferol (Vitamin D3) (VITAMIN D3) 5,000 Unit Tablet, 5000 UNIT PO DAILY for supplement, TAB 03/15/18 Potassium Chloride (POTASSIUM CHLORIDE) 20 Meq Tablet.er, 20 MEQ PO DAILY for supplement, TAB.SR 01/13/18 Pantoprazole Sodium (PROTONIX) 20 Mg Tablet.dr, 1 TAB PO DAILY, #30 TAB 11/18/17 Atorvastatin Calcium (ATORVASTATIN CALCIUM) 10 Mg Tablet, 10 MG PO HS for FOR CHOLESTEROL, #30 TAB 0 Refills 08/21/17 Budesonide/Formoterol Fumarate (SYMBICORT 160-4.5 MCG INHALER) 10.2 Gm Hfa.aer.ad, 2 PUFF IH BID, #10.6 GM 3 Refills 09/21/15 Discontinued Reported Medications Oxycodone/Apap 5-325 (PERCOCET 5-325 MG TABLET ) 1 Each Tablet, 1 TAB PO PRN Q6HRS PRN for PAIN, TAB 0 Refills 11/04/18 Discontinued Scripts Prednisone (PREDNISONE ) 10 Mg Tablet, 10 MG PO DAILY for copd for 5 Days, #5 TAB Prov:KIRSTIE TREVINO MD 10/31/18 Lorazepam (ATIVAN) 1 Mg Tablet, 1 MG PO PRN BID PRN for ANXIETY / AGITATION, #30 TAB Prov:RAI DURANT MD 09/11/18 Cyclobenzaprine Hcl (CYCLOBENZAPRINE HCL) 5 Mg Tablet, 5 MG PO PRN TID PRN for PAIN, #15 TAB Prov:TEVIN GOODWIN MD 08/20/18 TOMAS BAIG MD Nov 11, 2018 11:20
[2018-11-11 11:30] VITALS: BP 111/62
--- NOTE | 2018-11-11 13:07 | PDOC ---
PULMONARY PROGRESS NOTES Subjective sob better, has cough, nasal congestion better Vitals Vital Signs Date Time Temp Pulse Resp B/P (MAP) Pulse Ox O2 Delivery O2 Flow Rate FiO2 11/11/18 11:39 98 Nasal Cannula 3.0 11/11/18 11:30 98.6 99 20 111/62 (78) 98.6 ROS: No Nausea General: Alert, Oriented X4, No acute distress Lungs: Crackles, Other (few mild wheezes no distress) Cardiovascular: S1, S2 Abdomen: Soft, Non-tender Neuro Exam: Alert Extremities: Other Skin: Warm Labs Laboratory Tests Test 11/09/18 16:49 11/09/18 21:01 11/10/18 05:22 11/10/18 07:40 Glucose (Fingerstick) 240 mg/dL (70-99) 187 mg/dL (70-99) 134 mg/dL (70-99) White Blood Count 6.0 x10^3/uL (4.0-11.0) Red Blood Count 3.01 x10^6/uL (4.30-5.70) Hemoglobin 6.6 g/dL (13.0-17.5) Hematocrit 21.2 % (39.0-53.0) Mean Corpuscular Volume 70 fL (79-100) Mean Corpuscular Hemoglobin 22 pg (25-35) Mean Corpuscular Hemoglobin Concent 31 g/dL (31-37) Red Cell Distribution Width 20.2 % (11.5-14.5) Platelet Count 195 x10^3/uL (140-400) Neutrophils (%) (Auto) 93 % (31-73) Lymphocytes (%) (Auto) 3 % (24-48) Monocytes (%) (Auto) 5 % (0-9) Eosinophils (%) (Auto) 0 % (0-3) Basophils (%) (Auto) 0 % (0-3) Neutrophils # (Auto) 5.5 x10^3/uL (1.8-7.7) Lymphocytes # (Auto) 0.2 x10^3/uL (1.0-4.8) Monocytes # (Auto) 0.3 x10^3/uL (0.0-1.1) Eosinophils # (Auto) 0.0 x10^3/uL (0.0-0.7) Basophils # (Auto) 0.0 x10^3/uL (0.0-0.2) Sodium Level 141 mmol/L (136-145) Potassium Level 4.5 mmol/L (3.5-5.1) Chloride Level 104 mmol/L (98-107) Carbon Dioxide Level 34 mmol/L (21-32) Anion Gap 3 (6-14) Blood Urea Nitrogen 17 mg/dL (8-26) Creatinine 0.7 mg/dL (0.7-1.3) Estimated GFR (Cockcroft-Gault) 139.7 Glucose Level 142 mg/dL (70-99) Calcium Level 8.7 mg/dL (8.5-10.1) Test 11/10/18 11:49 11/10/18 16:17 11/10/18 19:38 11/11/18 07:36 Glucose (Fingerstick) 148 mg/dL (70-99) 172 mg/dL (70-99) 319 mg/dL (70-99) 105 mg/dL (70-99) Test 11/11/18 07:44 Hemoglobin 8.7 g/dL (13.0-17.5) Hematocrit 27.6 % (39.0-53.0) Laboratory Tests Test 11/10/18 16:17 11/10/18 19:38 11/11/18 07:36 11/11/18 07:44 Glucose (Fingerstick) 172 mg/dL (70-99) 319 mg/dL (70-99) 105 mg/dL (70-99) Hemoglobin 8.7 g/dL (13.0-17.5) Hematocrit 27.6 % (39.0-53.0) Medications Active Scripts Medications Dose Route/Sig Max Daily Dose Days Date Category Dose Instructions Tizanidine Hcl 4 Mg Tablet 4 Mg PO TID PRN 11/04/18 Reported Percocet 5-325 Mg Tablet (Oxycodone/Acetaminophen) 1 Each Tablet 1 Tab PO PRN Q6HRS PRN 11/04/18 Reported Azithromycin Tablet (Azithromycin) 250 Mg Tablet 250 Mg PO DAILY 11/04/18 Reported Miralax (Polyethylene Glycol 3350) 119 Gm Powder 17 Gm PO BID 11/03/18 Rx Prednisone (Prednisone) 10 Mg Tablet 10 Mg PO DAILY 5 10/31/18 Rx Nystatin 100,000 Unit/1 Ml Oral.susp 5 Ml SWSW [id number] 5 10/31/18 Rx Duoneb 0.5-3(2.5) Mg/3 Ml (Albuterol/Ipratropium) 3 Ml Ampul.neb 3 Ml NEB QID 10/28/18 Rx Tessalon Perle (Benzonatate) 100 Mg Capsule 1 Cap PO TID 10/28/18 Rx Montelukast Sodium Tablet (Montelukast Sodium) 10 Mg Tablet 10 Mg PO QHS 10/28/18 Rx Lidocaine PATCH (Lidocaine) 1 Each Adh..patch 1 Each TP DAILY 30 09/11/18 Rx REMOVE AFTER 12 HOURS Ativan (Lorazepam) 1 Mg Tablet 1 Mg PO PRN BID PRN 09/11/18 Rx Xarelto (Rivaroxaban) 20 Mg Tablet 20 Mg PO DAILY 09/09/18 Reported Metformin Hcl 500 Mg Tablet 500 Mg PO DAILYWBKFT 09/09/18 Reported Humalog (Insulin Lispro) 100 Unit/1 Ml Insuln.pen 0 Units SQ TIDWMEALS 30 08/28/18 Rx Aspirin Ec (Aspirin) 81 Mg Tablet.dr 81 Mg PO DAILYWBKFT 08/28/18 Rx Pulmicort (Budesonide) 0.25 Mg/2 Ml Ampul.neb 1 Vial NEB BID 08/25/18 Reported Albuterol Sulfate Neb Soln (Albuterol Sulfate) 2.5 Mg/3 Ml Vial.neb 1 Vial NEB PRN Q2HR PRN 08/25/18 Reported Cyclobenzaprine Hcl 5 Mg Tablet 5 Mg PO PRN TID PRN 08/20/18 Rx Tramadol Hcl 50 Mg Tablet 50 Mg PO PRN Q6HRS PRN 6 07/12/18 Rx Furosemide 40 Mg Tablet 1 Tab PO DAILY 06/20/18 Reported Guaifenesin 100 Mg/5 Ml Liquid 200 Mg PO PRN Q4HRS PRN 30 05/30/18 Rx Tylenol (Acetaminophen) 325 Mg Tablet 650 Mg PO PRN Q4HRS PRN 10 05/30/18 Rx Ventolin Hfa Inhaler (Albuterol Sulfate) 18 Gm Hfa.aer.ad 2 Puff INH Q4HRS 05/10/18 Rx Vitamin D3 (Cholecalciferol (Vitamin D3)) 5,000 Unit Tablet 5,000 Unit PO DAILY 03/15/18 Reported Reglan (Metoclopramide Hcl) 10 Mg Tablet 0.5 Tab PO QID 30 02/14/18 Rx Potassium Chloride 20 Meq Tablet.er 20 Meq PO DAILY 01/13/18 Reported Protonix (Pantoprazole Sodium) 20 Mg Tablet.dr 1 Tab PO DAILY 11/18/17 Reported Atorvastatin Calcium 10 Mg Tablet 10 Mg PO HS 08/21/17 Reported Symbicort 160-4.5 Mcg Inhaler (Budesonide/Formoterol Fumarate) 10.2 Gm Hfa.aer.ad 2 Puff IH BID 09/21/15 Reported Impression . 1. Dyspnea in a patient with end-stage chronic obstructive pulmonary disease and chronic hypoxic respiratory failure. Now comes in with exacerbation of chronic obstructive pulmonary disease triggered by cold temperature when he visited [facility]. stable for now 2. No signs of acute infection. 3. Stable, unchanged chest x-ray with extensive large bullous lung disease on the left side. 4. History of pulmonary embolism, which subsequently resolved on followup scans. Currently, off Xarelto due to ongoing anemia 5. Anemia Plan . 1. Awaiting placement. Most of his readmissions are related to social issues and end stage COPD. the patient is not capable of living independently at home and should be at the shelter. regulatory services consultant to help regarding that. he plans to go with sister. rehab at [facility] 2. In the meantime, continue present bronchodilators. 3. prednisone 40 mg daily 4. PO abx 5. Xarelto dced, hb 6.8, prbc prn by primary. 6. cont flonase for nasal congestion discussed w VIN Rudolph MD Nov 11, 2018 13:07
[2018-11-11 15:00] VITALS: BP 131/74
[2018-11-11] MEDS: traMADol 50 MG TABLET PO PRN (15:08)
[2018-11-11] MEDS: ALBUTEROL SULFATE 2.5 MG/3 ML NEBU. NEB PRN (15:35)
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
--- NOTE | 2018-11-11 16:08 | NUR ---
Discharge teaching provided written and verbal to pt,understanding verbalized. Pt awaiting a ride from a friend. He is expecting ride around 1630.
--- NOTE | 2018-11-11 17:05 | NUR ---
Pt reports his ride is running late and now expects him around 1830.
--- NOTE | 2018-11-11 18:19 | NUR ---
Pt requested cab voucher as his friend is too busy to pick him up. Cab voucher obtained from nursing cereal supervisor. Pt dismissed to home with all belongings. Transported to exit per w/c at 1810.
[2018-12-20] MEDS ORDERED: LORA-434 PO (02:55)
[2018-12-20] MEDS ORDERED: FERR325T14 PO (02:55)
[2018-12-20] MEDS ORDERED: PRED-220 PO (03:11)
[2018-12-20] MEDS ORDERED: HYDR-2769 PO (08:04)
[2018-12-20] MEDS ORDERED: TRAM50TA PO (08:04)
[2018-12-22] MEDS ORDERED: HYDR-2769 PO (08:30)
[2018-12-25] MEDS ORDERED: HYDR-2769 PO (12:45)
== END 2018-11-11 18:10 | disposition home or self-care (01) | DRG 189 ==
LOC: ER 18:25 → 6 SOUTH 20:15
PROVIDERS: ADMIT Internal Medicine; ATTEND Internal Medicine
PROC: 30233N1 Transfusion of Nonautologous Red Blood Cells into Peripheral Vein, Percutaneous Approach (ICD-10-PCS; principal; 2018-11-10)
DX: J96.21 Acute and chronic respiratory failure with hypoxia (principal); N18.6 End stage renal disease; I13.2 Hypertensive heart and chronic kidney disease with heart failure and with stage 5 chronic kidney disease, or end stage renal disease; I50.9 Heart failure, unspecified; F41.9 Anxiety disorder, unspecified; M81.0 Age-related osteoporosis without current pathological fracture; J43.9 Emphysema, unspecified; M19.90 Unspecified osteoarthritis, unspecified site; K21.9 Gastro-esophageal reflux disease without esophagitis; F32.9 Major depressive disorder, single episode, unspecified; T38.0X5A Adverse effect of glucocorticoids and synthetic analogues, initial encounter; K59.00 Constipation, unspecified; H10.9 Unspecified conjunctivitis; B37.9 Candidiasis, unspecified; D64.9 Anemia, unspecified; E78.5 Hyperlipidemia, unspecified; R63.6 Underweight; E11.22 Type 2 diabetes mellitus with diabetic chronic kidney disease; Z82.49 Family history of ischemic heart disease and other diseases of the circulatory system; Z79.52 Long term (current) use of systemic steroids; Z87.891 Personal history of nicotine dependence; Z86.711 Personal history of pulmonary embolism
CPT/HCPCS: 36415; 36600; 71045; 74018; 74022; 80048; 80053; 82962; 85007; 85014; 85018; 85025; 86850; 86900; 86901; 86920; 93005; 94640; 94760; 96372; J1956; J2543; J2920; J2930; J3370; J7040; J7050; J7512; J7613; J7620; J8597; P9016; Q0144; 97116; 97530; 97535; 99285-25; G0378; J7030

== ENCOUNTER 2018-11-12 10:56 | Inpatient (IN) | payer MEDICARE, MEDICAID ==
[~2018-11-12] VITALS: Ht 180.3 cm; Wt 71.4 kg
[~2018-11-12 10:56] MED LIST changes: +FLUT16SP NS; +LACT1CAP19 PO
[2018-11-12] MEDS ORDERED: methylPREDNISolone SOD SUCC PF 125 MG/2 ML VIAL. IV ONE (11:45)
[2018-11-12] MEDS ORDERED: IPRATRPIUM/ALBUTEROL 0.5/2.5MG 3 ML NEBU. NEB ONE (11:45)
[2018-11-12 11:51] LABS: BASO # 0.1 x10^3/uL (0.0-0.2); BASO % 1 % (0-3); EOS % 0 % (0-3); HEMOGLOBIN 9.5 g/dL (13.0-17.5); LYMPH # 0.2 x10^3/uL (1.0-4.8); LYMPH % 2 % (24-48); MEAN CORPUSCULAR HEMOGLOBIN 23 pg (25-35); MEAN CORPUSCULAR HGB CONC 32 g/dL (31-37); MEAN CORPUSCULAR VOLUME 73 fL (79-100); MONO # 0.5 x10^3/uL (0.0-1.1); MONO % 4 % (0-9); NEUT # 9.4 x10^3/uL (1.8-7.7); NEUT % 92 % (31-73); PLATELET COUNT 231 x10^3/uL (140-400); RED BLOOD COUNT 4.09 x10^6/uL (4.30-5.70); RED CELL DISTRIBUTION WIDTH 21.1 % (11.5-14.5); WHITE BLOOD COUNT 10.2 x10^3/uL (4.0-11.0)
--- NOTE | 2018-11-12 12:00 | PHYS DOC ---
Past Medical History Past Medical History: Anxiety, Bronchitis, CHF, COPD Additional Past Medical Histor: EMPHYSEMA, OSTEOPOROSIS Past Surgical History: No Surgical History Additional Past Surgical Histo: HERNIA REPAIR Alcohol Use: None Drug Use: None Adult General Chief Complaint Chief Complaint: SHORTNESS OF BREATH [facility] HPI Patient is a 58 year old male with history of COPD on home oxygen and frequent hospitalization who was discharged from hospital yesterday presents with complaining of shortness of breath and chronic cough. Patient states he was going to rehabilitation but he felt shortness of breath without chest pain, fever and chills, focal neuro deficit that didn't get better with increasing his home oxygen. Review of Systems Review of Systems Constitutional: Denies fever or chills [] Eyes: Denies change in visual acuity, redness, or eye pain [] HENT: Denies nasal congestion or sore throat [] Respiratory: Reports cough and shortness of breath Cardiovascular: No additional information not addressed in HPI [] GI: Denies abdominal pain, nausea, vomiting, bloody stools or diarrhea [] : Denies dysuria or hematuria [] Musculoskeletal: Denies back pain or joint pain [] Integument: Denies rash or skin lesions [] Neurologic: Denies headache, focal weakness or sensory changes [] Endocrine: Denies polyuria or polydipsia [] All other systems were reviewed and found to be within normal limits, except as documented in this note. Current Medications Current Medications Allergies Allergies Allergies Coded Allergies Type Severity Reaction Last Updated Verified No Known Medication Allergies Allergy Unknown 08/26/18 Yes Physical Exam Physical Exam Constitutional: Well developed, well nourished, mild distress, non-toxic appearance. [] HENT: Normocephalic, atraumatic. Eyes: PERRLA, EOMI, conjunctiva normal, no discharge. [] Neck: Normal range of motion, no tenderness, supple, no stridor. [] Cardiovascular: Tachycardia, no murmur [] Lungs & Thorax: Mild respiratory distress with bilateral intercostal retraction and decrease of air movement and rhonchi Abdomen: Bowel sounds normal, soft, no tenderness, no masses, no pulsatile ma sses. [] Skin: Warm, dry, no erythema, no rash. [] Back: No tenderness, no CVA tenderness. [] Extremities: No tenderness, no cyanosis, no clubbing, ROM intact. Neurologic: Alert and oriented X 3, no focal deficits noted. [] Psychologic: Affect anxious, judgement normal, mood normal. [] Current Patient Data Vital Signs Vital Signs Date Time Temp Pulse Resp B/P (MAP) Pulse Ox O2 Delivery O2 Flow Rate FiO2 11/12/18 11:12 99.2 106 26 128/82 (97) 98 Nasal Cannula 4.0 99.2 Lab Values Laboratory Tests Test 11/12/18 11:40 White Blood Count 10.2 x10^3/uL (4.0-11.0) Red Blood Count 4.09 x10^6/uL (4.30-5.70) L Hemoglobin 9.5 g/dL (13.0-17.5) L Hematocrit 30.0 % (39.0-53.0) L Mean Corpuscular Volume 73 fL (79-100) L Mean Corpuscular Hemoglobin 23 pg (25-35) L Mean Corpuscular Hemoglobin Concent 32 g/dL (31-37) Red Cell Distribution Width 21.1 % (11.5-14.5) H Platelet Count 231 x10^3/uL (140-400) Neutrophils (%) (Auto) 92 % (31-73) H Lymphocytes (%) (Auto) 2 % (24-48) L Monocytes (%) (Auto) 4 % (0-9) Eosinophils (%) (Auto) 0 % (0-3) Basophils (%) (Auto) 1 % (0-3) Neutrophils # (Auto) 9.4 x10^3/uL (1.8-7.7) H Lymphocytes # (Auto) 0.2 x10^3/uL (1.0-4.8) L Monocytes # (Auto) 0.5 x10^3/uL (0.0-1.1) Eosinophils # (Auto) 0.0 x10^3/uL (0.0-0.7) Basophils # (Auto) 0.1 x10^3/uL (0.0-0.2) Segmented Neutrophils % 95 % (35-66) H Lymphocytes % 2 % (24-48) L Monocytes % 3 % (0-10) Platelet Estimate Adequate (ADEQUATE) Hypochromasia Slight Poikilocytosis Present Anisocytosis Mod Microcytosis Present Ovalocytes Present Schistocytes Occ Sodium Level 142 mmol/L (136-145) Potassium Level 3.9 mmol/L (3.5-5.1) Chloride Level 99 mmol/L (98-107) Carbon Dioxide Level 34 mmol/L (21-32) H Anion Gap 9 (6-14) Blood Urea Nitrogen 15 mg/dL (8-26) Creatinine 1.0 mg/dL (0.7-1.3) Estimated GFR (Cockcroft-Gault) 92.5 BUN/Creatinine Ratio 15 (6-20) Glucose Level 118 mg/dL (70-99) H Lactic Acid Level 3.6 mmol/L (0.4-2.0) H Calcium Level 9.7 mg/dL (8.5-10.1) Total Bilirubin 0.7 mg/dL (0.2-1.0) Aspartate Amino Transferase (AST) 16 U/L (15-37) Alanine Aminotransferase (ALT) 24 U/L (16-63) Alkaline Phosphatase 99 U/L (46-116) Creatine Kinase 115 U/L (39-308) Troponin I Quantitative < 0.017 ng/mL (0.000-0.055) KD-Xzi-[id number]-Type Natriuretic Peptide 111 pg/mL (0-124) Total Protein 7.1 g/dL (6.4-8.2) Albumin 3.9 g/dL (3.4-5.0) Albumin/Globulin Ratio 1.2 (1.0-1.7) Laboratory Tests 11/12/18 11:40 Laboratory Tests 11/12/18 11:40 EKG EKG EKG interpreted by me. EKG at 1122 showed sinus tachycardia at rate of 105, otherwise unremarkable EKG. Radiology/Procedures Radiology/Procedures [][facility] [address] [place] [address] IMAGING REPORT Signed PATIENT: KAYLA JONES ACCOUNT: [id number] : 1960 LOCATION: [facility] AGE: 58 SEX: M EXAM STATUS: ADM IN ORD. PHYSICIAN: ZOIE CHARLES MD REASON: shortness of breath PROCEDURE: PORTABLE CHEST 1V PORTABLE CHEST 1V INDICATION: Shortness of breath. COMPARISON STUDY: 11/04/2018. FINDINGS: Rotation to the right. Lungs: Large bulla involving the left mid and upper lung zone. No pulmonary mass or consolidation. The tracheobronchial tree and hilar structures are normal. Pleura: No pleural effusion or pneumothorax. Heart and Mediastinum: The cardiomediastinal silhouette and great vessels are stable. IMPRESSION: No consolidation. Electronically signed by: Sarah Lewis MD (11/12/2018 12:31 PM) [facility] DICTATED and SIGNED BY: SARAH LEWIS MD DATE: 11/12/18 1231 Course & Med Decision Making Course & Med Decision Making Pertinent Labs and Imaging studies reviewed. (See chart for details) Evaluation of patient in ER showed 58-year-old male patient with history of frequent hospitalization because of COPD exacerbation presented to ER with 1 day after discharge from hospital being complaining of shortness of breath and cough.Patient requiring admission for further evaluation and treatment. Discussed with Dr. Hathaway who is in agreement with admission. Discussed findings and plan with patient and family, who acknowledge understanding and agreement. Dragon Disclaimer Dragon Disclaimer This electronic medical record was generated, in whole or in part, using a voice recognition dictation system. Departure Departure Impression: Primary Impression: COPD with exacerbation Additional Impressions: Shortness of breath Anxiety Disposition: 09 ADMITTED INPATIENT (at 1153) Admitting Physician: ALINE (Dr. Hathaway accepted admission at 1152) Condition: IMPROVED Referrals: UNKNOWN PCP NAME (PCP) Problem Qualifiers ZOIE CHARLES MD Nov 12, 2018 12:00
[2018-11-12 12:01] LABS: CALCIUM 9.7 mg/dL (8.5-10.1); GFR 92.5; POTASSIUM 3.9 mmol/L (3.5-5.1)
[2018-11-12 12:16] LABS: ALBUMIN 3.9 g/dL (3.4-5.0); ALBUMIN/GLOBULIN RATIO 1.2 (1.0-1.7); TOTAL BILIRUBIN 0.7 mg/dL (0.2-1.0); TOTAL PROTEIN 7.1 g/dL (6.4-8.2)
--- NOTE | 2018-11-12 12:33 | RAD ---
PORTABLE CHEST 1V INDICATION: Shortness of breath. COMPARISON STUDY: 11/04/2018. FINDINGS: Rotation to the right. Lungs: Large bulla involving the left mid and upper lung zone. No pulmonary mass or consolidation. The tracheobronchial tree and hilar structures are normal. Pleura: No pleural effusion or pneumothorax. Heart and Mediastinum: The cardiomediastinal silhouette and great vessels are stable. IMPRESSION: No consolidation. Electronically signed by: Nehemias Lewis MD (11/12/2018 12:31 PM) [facility]
[2018-11-12] MEDS ORDERED: cefTRIAXone IV Push 1 GM VIAL. IVP ONE (13:00)
[2018-11-12 13:10] LABS: % LYMPHS 2 % (24-48); % MONOS 3 % (0-10); % SEGS 95 % (35-66); ANISOCYTOSIS MOD; HYPOCHROMIA SLIGHT; MICROCYTOSIS PRESENT; PLT ESTIMATE ADEQUATE (ADEQUATE)
--- NOTE | 2018-11-12 13:10 | EKG ---
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
[2018-11-12 13:11] LABS: OVALOCYTES PRESENT; POIKILOCYTOSIS PRESENT; SCHISTOCYTES OCC
[2018-11-12 13:35] VITALS: BP 119/64
--- NOTE | 2018-11-12 13:48 | HP ---
ADMIT DATE: 11/12/2018 CHIEF COMPLAINT: Shortness of breath, cough. HISTORY OF PRESENT ILLNESS: The patient is a pleasant middle-aged male, well known to our service. He has end-stage COPD and heart failure. He was actually on hospice within the past year, but somehow was able to outlive his prognosis. He has now been off hospice and the next problem was that he was having problems finding a place to live. He is currently living in an upstairs room. I think there are a lot of issues with mold and dust and cigarette smoke. He has a stepdaughter here named Alvin, who is helping him. I discussed the case with ER physician. We are going to admit the patient, give him some breathing treatments and oxygen, steroids and antibiotics and consult Pulmonary Medicine. PAST MEDICAL HISTORY: End-stage COPD, CHF, bipolar anxiety, hernia repair. ALLERGIES: None. FAMILY HISTORY: Hypertension. SOCIAL HISTORY: Quit smoking, no drinking or drugs. MEDICATIONS: Reviewed, please refer to the MRAD. REVIEW OF SYSTEMS: GENERAL: No history of weight change, weakness or fevers. SKIN: No bruising, hair changes or rashes. EYES: No blurred, double or loss of vision. NOSE AND THROAT: No history of nosebleeds, hoarseness or sore throat. HEART: No history of palpitations, chest pain or shortness of breath on exertion. LUNGS: He complains of shortness of breath and cough. GASTROINTESTINAL: Denies changes in appetite, nausea, vomiting, diarrhea or constipation. GENITOURINARY: No history of frequency, urgency, hesitancy or nocturia. NEUROLOGIC: Denies history of numbness, tingling, tremor or weakness. PSYCHIATRIC: No history of panic, anxiety or depression. ENDOCRINE: No history of heat or cold intolerance, polyuria or polydipsia. EXTREMITIES: Denies muscle weakness, joint pain, pain on walking or stiffness. PHYSICAL EXAMINATION: VITAL SIGNS: Within normal limits and are stable. GENERAL: No apparent distress. Alert and oriented. HEENT: Head is normocephalic, atraumatic, pupils were equally round and reactive to light and accommodation. NECK: Supple, no JVD, no thyromegaly was noted. LUNGS: He has diffuse wheezing. HEART: RRR, S1, S2 present. Peripheral pulses intact, no obvious murmurs were noted. ABDOMEN: Soft, nontender. Positive bowel sounds no organomegaly, normal bowel sounds. EXTREMITIES: Without any cyanosis, clubbing, or edema. Pedal pulses intact, Homans sign is negative. NEUROLOGIC: Normal speech, normal tone. A & O x3, moves all extremities, no obvious focal deficits. PSYCHIATRIC: Normal affect, normal mood. Stable. SKIN: No ulcerations or rashes, good skin turgor, no jaundice. VASCULAR: Good capillary refill, neurovascular bundle appears to be intact. LABORATORY DATA: White count is 10. Electrolytes are basically normal. DIAGNOSTIC DATA: Chest x-ray shows a large bulla involving the left mid and upper lung zone. No masses. Basically COPD. ASSESSMENT AND PLAN: Respiratory failure. The patient has been admitted. We will start empiric IV antibiotics, steroids, breathing treatments, oxygen. Consult Pulmonary. Deep venous thrombosis prophylaxis. Full code per his choice. Long-term prognosis guarded at best. TAMMY MARKS DO DR: HEATHER/efrain JOB#: [id number] / [id number]
--- NOTE | 2018-11-12 14:46 | CONS ---
DATE OF CONSULTATION: 11/12/2018 PULMONARY CONSULTATION ATTENDING PHYSICIAN: Dar Hathaway MD HISTORY OF PRESENT ILLNESS: The patient is very well known to us. He is a 58-year-old male who has been living at [facility] on and off since past 1 month. He has end-stage chronic obstructive pulmonary disease. He has poor social help and unable to stay at his sister's place. He was discharged yesterday. Now, he comes in to the hospital with dyspnea. He states he was planning on going to rehab place from his sister's house. However, when he was in the car, he just ran out of gas. He states that he was short of breath and instead of going to rehab place, he decided to come into [facility]. He had oxygen saturation in the 80s as was reported to me and was placed on 4 liters, which he is normally on. The patient's lactic acid was elevated at 3.6 and a maximum of 3.9 from increased work of breathing. No fever, no chills. He was just discharged yesterday. Prior ABGs has not qualified him for BiPAP. PAST MEDICAL HISTORY: History of end-stage COPD with bullous lung disease, history of PE and was subsequently resolved and due to his anemia, Xarelto was taken off during his recent hospitalization. PAST SURGICAL HISTORY: No recent surgery. ALLERGIES: None. FAMILY HISTORY: Hypertension. SOCIAL HISTORY: Quit smoking. Smoked heavily in the past. MEDICATIONS: Reviewed as listed in the MRAD including DuoNebs, IV steroids and antibiotic. PHYSICAL EXAMINATION: VITAL SIGNS: Reviewed. Blood pressure stable, pulse ox 93% on 4 liters. NECK: Supple. LUNGS: Diminished breath sounds bilaterally. CARDIOVASCULAR: Regular rate. ABDOMEN: Soft. EXTREMITIES: With no pitting edema. LABORATORY DATA: Reviewed. White cell count 10.2, hemoglobin 9.5 and platelets are 231. BUN 15, creatinine 1.0. IMPRESSION: 1. 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 He has declined to go to skilled care/rehab in the past, but was in the process of going to rehab from his sister's house, but could not make it due to increasing dyspnea, but he is agreeable to go to rehab/skilled facility from this hospitalization. Previously, his ABGs have not qualified him for BiPAP as his pCO2 was within normal limits. We will repeat ABGs again. His chest x-ray did not show any new findings. 2. Lactic acidosis from increased work of breathing and unlikely sepsis. RECOMMENDATIONS: 1. Continue present oxygen. 2. Obtain ABGs. 3. Taper steroids. 4. Continue bronchodilators. 5. Antibiotics can be discontinued in next 24 hours. 6. Discussed with assistant case manager at this point, there is not much we can do in the hospital. He needs licensed master social worker help and social support. At this point, he is agreeable to go to rehab facility and that will be his best option. We will be available for any further recommendations. VIN MEAD MD DR: ALTAGRACIA/efrain JOB#: [id number] / [id number]
[2018-11-12] MEDS: IPRATRPIUM/ALBUTEROL 0.5/2.5MG 3 ML NEBU. NEB SCH ×2 (15:25→19:59)
[2018-11-12 15:30] VITALS: BP 119/66
[2018-11-12 15:56] LABS: BASE EXCESS ABG 1 mmol/L (-3-3); HCO3 ABG 25 mmol/L (21-28); PCO2 ABG 40 mmHg (35-46); PO2 ABG 84 mmHg (65-108); SAT O2 ABG 95 % (92-99)
[2018-11-12] MEDS: methylPREDNISolone SOD SUCC PF 125 MG/2 ML VIAL. IV SCH ×2 (15:57→21:28)
[2018-11-12 16:32] LABS: FIO2 ABG 28
[2018-11-12] MEDS ORDERED: ALBUTEROL SULFATE 2.5 MG/3 ML NEBU. NEB PRN (17:55)
[2018-11-12] MEDS ORDERED: DEXTROSE 50% 25 GM / 50ML DISP.SYRIN. IV PRN (18:00)
[2018-11-12] MEDS ORDERED: ACETAMINOPHEN 325 MG TABLET. PO PRN (18:00)
[2018-11-12] MEDS ORDERED: traMADol 50 MG TABLET PO PRN (18:00)
[2018-11-12] MEDS ORDERED: guaiFENesin ORAL 200 MG/10 ML LIQUID. PO PRN (19:15)
[2018-11-12 19:36] VITALS: BP 124/74
[2018-11-12] MEDS ORDERED: IPRATRPIUM/ALBUTEROL 0.5/2.5MG 3 ML NEBU. NEB SCH (20:00)
[2018-11-12] MEDS: METOCLOPRAMIDE 10 MG TABLET. PO SCH (21:27)
[2018-11-12] MEDS: NYSTATIN 100,000 UNITS/ML 5 ML ORAL.SUSP. SWSW SCH (21:27)
[2018-11-12] MEDS: tiZANidine 4 MG TABLET. PO PRN (21:28)
[2018-11-12] MEDS: traMADol 50 MG TABLET PO PRN (21:28)
[2018-11-12] MEDS: LACTOBACILLUS RHAMNOSUS GG 1 CAPSULE. PO SCH (21:28)
[2018-11-12] MEDS: MONTELUKAST SODIUM 10 MG TABLET. PO SCH (21:28)
[2018-11-12] MEDS: ATORVASTATIN CALCIUM 10 MG TABLET. PO SCH (21:29)
[2018-11-12] MEDS: BENZONATATE 100 MG CAPSULE. PO SCH (21:29)
[2018-11-12] MEDS: POLYETHYLENE GLYCOL 3350 17 GM PACKET. PO SCH (21:40)
[2018-11-12 23:34] VITALS: BP 121/66
[2018-11-13 03:00] VITALS: BP 123/67
[2018-11-13] MEDS: methylPREDNISolone SOD SUCC PF 125 MG/2 ML VIAL. IV SCH ×3 (06:16→21:21)
[2018-11-13 07:00] VITALS: BP 132/77
[2018-11-13] MEDS: IPRATRPIUM/ALBUTEROL 0.5/2.5MG 3 ML NEBU. NEB SCH ×4 (07:24→20:26)
[2018-11-13] MEDS: INSULIN LISPRO 300 UNITS/3 ML VIAL. SQ SCH ×3 (08:00→17:00)
[2018-11-13] MEDS ORDERED: INSULIN LISPRO 300 UNITS/3 ML VIAL. SQ SCH (08:00)
[2018-11-13] MEDS: FUROSEMIDE 40 MG TABLET. PO SCH (08:10)
[2018-11-13] MEDS: METOCLOPRAMIDE 10 MG TABLET. PO SCH ×4 (08:10→20:08)
[2018-11-13] MEDS: DOCUSATE SODIUM 100 MG CAPSULE. PO SCH (08:10)
[2018-11-13] MEDS: metFORMIN 500 MG TABLET PO SCH (08:10)
[2018-11-13] MEDS: LACTOBACILLUS RHAMNOSUS GG 1 CAPSULE. PO SCH ×2 (08:10→20:07)
[2018-11-13] MEDS: BENZONATATE 100 MG CAPSULE. PO SCH ×3 (08:10→20:08)
[2018-11-13] MEDS: ASPIRIN ENTERIC COATED 81 MG TABLET.DR. PO SCH (08:10)
[2018-11-13] MEDS: POLYETHYLENE GLYCOL 3350 17 GM PACKET. PO SCH ×2 (08:10→20:08)
[2018-11-13] MEDS: NYSTATIN 100,000 UNITS/ML 5 ML ORAL.SUSP. SWSW SCH ×4 (08:11→20:08)
[2018-11-13] MEDS: LIDOCAINE (700MG/PATCH) PATCH. TP SCH (08:11)
--- NOTE | 2018-11-13 08:11 | PDOC ---
PROGRESS NOTES History of Present Illness History of Present Illness ASSESSMENT AND PLAN: ACUTE ON CHRONIC Respiratory failure. 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 Approximately 40 percent T8 vertebral body height loss is new from 09/08/2018 exam. Correlate for point tenderness in the region. MRI thoracic spine could be obtained for further evaluation if there is concern for acute fracture. 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 following with pulm UNDERWEIGHT anemia hgb 6.8 transfused 11/10 hgb now 9.5 patient is not capable of living independently at home and should be at the senior living admitted. IV antibiotics, steroids, breathing treatments, oxygen. support Consult Pulmonary. Deep venous thrombosis prophylaxis. Full code 38 MIN PT EXAM, CHART REVIEW, > 50% OF TIME SPENT WITH EXAM, CHART REVIEW, PT CARE COORDINATION Vitals Vitals Vital Signs Date Time Temp Pulse Resp B/P (MAP) Pulse Ox O2 Delivery O2 Flow Rate FiO2 11/13/18 07:24 100 Nasal Cannula 2.0 11/13/18 07:00 97.9 83 18 132/77 (95) 97.9 Physical Exam Lungs: Crackles, Other Labs LABS MR#: [id number] [facility] Date of Study: 05/26/2018 Ordering Physician: TOMAS BAIG, Referring Physician: TOMAS BAIG, Tech: Emma Boone Marilu APPROVED REPORT EXAM: Two-dimensional and M-mode echocardiogram with Doppler and color Doppler. Other Information Quality : Average HR: 101bpm INDICATION COPD Dyspnea Chest Pain Congestive Heart Failure RISK FACTORS Hypertension 2D DIMENSIONS RVDd 3.1 (2.9-3.5cm) Left Atrium(2D) 3.1 (1.6-4.0cm) IVSd 1.1 (0.7-1.1cm) Aortic Root(2D) 3.5 (2.0-3.7cm) LVDd 4.1 (3.9-5.9cm) LVOT Diameter 2.2 (1.8-2.4cm) PWd 1.4 (0.7-1.1cm) LVDs 3.0 (2.5-4.0cm) FS (%) 27.6 % SV 41.2 ml LVEF(%) 54.0 (>50%) Aortic Valve AoV Peak Hema. 111.6cm/s AoV VTI 22.7cm AO Peak GR. 5.0mmHg LVOT VTI 14.38cm AO Mean GR. 5mmHg TDI Lateral E' P. V 9.40cm/s Medial E' P. V 8.88cm/s Pulmonary Vein S1 Velocity 41.7cm/s S2 Velocity 37.07cm/s D2 Velocity 37.1cm/s PVa duration 90msec LEFT VENTRICLE The left ventricle is normal size. There is moderate concentric left ventricular hypertrophy. The left ventricular systolic function is normal and the ejection fraction is within normal range. The Ejection Fraction is >55%. There is normal LV segmental wall motion. Transmitral Doppler flow pattern is Grade I-abnormal relaxation pattern. RIGHT VENTRICLE The right ventricle is moderately dilated. There is normal right ventricular wall thickness. The right ventricular systolic function is normal. ATRIA The left atrium is mildly dilated. The right atrium size is normal. The interatrial septum is intact with no evidence for an atrial septal defect or patent foramen ovale as noted on 2-D or Doppler imaging. AORTIC VALVE The aortic valve is not well visualized. Doppler and Color Flow revealed no significant aortic regurgitation. There is no significant aortic valvular stenosis. MITRAL VALVE The mitral valve is normal in structure and function. There is no evidence of mitral valve prolapse. There is no mitral valve stenosis. Doppler and Color Flow revealed no mitral valve regurgitation noted. TRICUSPID VALVE The tricuspid valve is normal in structure and function. Doppler and Color Flow revealed no tricuspid valve regurgitation noted. There is no tricuspid valve stenosis. PULMONIC VALVE The pulmonic valve is not well visualized. Doppler and Color Flow revealed no pulmonic valvular regurgitation. There is no pulmonic valvular stenosis. GREAT VESSELS The aortic root is normal in size. The IVC is dilated and collapses >50% with inspiration. PERICARDIAL EFFUSION There is no evidence of significant pericardial effusion. Critical Notification Critical Value: No <Conclusion> The left ventricular systolic function is normal and the ejection fraction is within normal range. The Ejection Fraction is >55%. There is normal LV segmental wall motion. The right ventricle is moderately dilated. The right ventricular systolic function is normal. Signed by : Luis Manuel Thornton, Electronically Approved : 05/26/2018 19:57:37 CT CHEST ABDOMEN AND PELVIS WITH IV CONTRAST History: Cough, abdominal pain Comparison: CT chest dated 09/08/2018. Technique: Helical CT of the chest abdomen and pelvis was performed after the administration of intravenous contrast. Sagittal and coronal reconstructions were obtained. 75 mL Omnipaque 300. Chest Findings: The thyroid is symmetric. There is no significant axillary, mediastinal, or hilar adenopathy. The thoracic aorta diameter is normal. The cardiac size is normal. Coronary artery calcifications. There is no pericardial effusion. The upper limits of the bilateral apices are excluded from the [id number]. Redemonstration of large left upper lobe bullous. Otherwise moderate emphysematous changes elsewhere. Mild right apical subpleural fibrosis. Bilateral linear opacities likely related to atelectasis versus scarring. No focal consolidation. No suspicious pulmonary nodule or mass. No pleural effusion or pneumothorax. The central airways are patent. Abdomen Findings: The liver, gallbladder, pancreas, spleen, and bilateral adrenal glands are normal. Small left likely renal cyst, similar to prior. Bilateral kidneys otherwise enhance symmetrically. There is no focal renal mass. There is no hydronephrosis. The visualized loops of small bowel are normal. Moderate colonic stool. The visualized loops of large bowel are otherwise normal. There is no evidence of bowel obstruction. Appendix is normal. There is no free fluid. There is no mesenteric or retroperitoneal adenopathy. Mild atherosclerosis of the tortuous abdominal aorta and its branches. Likely severe stenosis in the proximal left superficial femoral artery, although incompletely visualized. Pelvis Findings: Urinary bladder is underdistended limiting evaluation. No pelvic free fluid. There is no significant pelvic or inguinal adenopathy. Approximately 40 percent T8 vertebral body height loss appears new from prior exam. Additional mild height loss including T7, T9, T10, and T12 appears similar to prior exams. Levocurvature of the lumbar spine. Moderate multilevel degenerative changes of the visualized spine. IMPRESSION: 1. No acute intrathoracic, intra-abdominal, or intrapelvic process identified. 2. Approximately 40 percent T8 vertebral body height loss is new from 09/08/2018 exam. Correlate for point tenderness in the region. MRI thoracic spine could be obtained for further evaluation if there is concern for acute fracture. PQRS Compliance Statement: One or more of the following individualized dose reduction techniques were utilized for this examination: 1. Automated exposure control 2. Adjustment of the mA and/or kV according to patient size 3. Use of iterative reconstruction technique Electronically signed by: Todd Cohen MD (10/13/2018 10:14 PM) [facility] Laboratory Tests Test 11/12/18 11:40 11/12/18 13:35 11/12/18 15:45 11/12/18 16:46 White Blood Count 10.2 x10^3/uL (4.0-11.0) Red Blood Count 4.09 x10^6/uL (4.30-5.70) Hemoglobin 9.5 g/dL (13.0-17.5) Hematocrit 30.0 % (39.0-53.0) Mean Corpuscular Volume 73 fL (79-100) Mean Corpuscular Hemoglobin 23 pg (25-35) Mean Corpuscular Hemoglobin Concent 32 g/dL (31-37) Red Cell Distribution Width 21.1 % (11.5-14.5) Platelet Count 231 x10^3/uL (140-400) Neutrophils (%) (Auto) 92 % (31-73) Lymphocytes (%) (Auto) 2 % (24-48) Monocytes (%) (Auto) 4 % (0-9) Eosinophils (%) (Auto) 0 % (0-3) Basophils (%) (Auto) 1 % (0-3) Neutrophils # (Auto) 9.4 x10^3/uL (1.8-7.7) Lymphocytes # (Auto) 0.2 x10^3/uL (1.0-4.8) Monocytes # (Auto) 0.5 x10^3/uL (0.0-1.1) Eosinophils # (Auto) 0.0 x10^3/uL (0.0-0.7) Basophils # (Auto) 0.1 x10^3/uL (0.0-0.2) Segmented Neutrophils % 95 % (35-66) Lymphocytes % 2 % (24-48) Monocytes % 3 % (0-10) Platelet Estimate Adequate (ADEQUATE) Hypochromasia Slight Poikilocytosis Present Anisocytosis Mod Microcytosis Present Ovalocytes Present Schistocytes Occ Sodium Level 142 mmol/L (136-145) Potassium Level 3.9 mmol/L (3.5-5.1) Chloride Level 99 mmol/L (98-107) Carbon Dioxide Level 34 mmol/L (21-32) Anion Gap 9 (6-14) Blood Urea Nitrogen 15 mg/dL (8-26) Creatinine 1.0 mg/dL (0.7-1.3) Estimated GFR (Cockcroft-Gault) 92.5 BUN/Creatinine Ratio 15 (6-20) Glucose Level 118 mg/dL (70-99) Lactic Acid Level 3.6 mmol/L (0.4-2.0) 3.9 mmol/L (0.4-2.0) Calcium Level 9.7 mg/dL (8.5-10.1) Total Bilirubin 0.7 mg/dL (0.2-1.0) Aspartate Amino Transf (AST/SGOT) 16 U/L (15-37) Alanine Aminotransferase (ALT/SGPT) 24 U/L (16-63) Alkaline Phosphatase 99 U/L (46-116) Creatine Kinase 115 U/L (39-308) Troponin I Quantitative < 0.017 ng/mL (0.000-0.055) PS-Kwp-D-Type Natriuretic Peptide 111 pg/mL (0-124) Total Protein 7.1 g/dL (6.4-8.2) Albumin 3.9 g/dL (3.4-5.0) Albumin/Globulin Ratio 1.2 (1.0-1.7) O2 Saturation 95 % (92-99) Arterial Blood pH 7.41 (7.35-7.45) Arterial Blood pCO2 at Patient Temp 40 mmHg (35-46) Arterial Blood pO2 at Patient Temp 84 mmHg (65-108) Arterial Blood HCO3 25 mmol/L (21-28) Arterial Blood Base Excess 1 mmol/L (-3-3) FiO2 28 Glucose (Fingerstick) 291 mg/dL (70-99) Test 11/12/18 21:19 11/13/18 07:35 Glucose (Fingerstick) 236 mg/dL (70-99) 134 mg/dL (70-99) Assessment and Plan Assessmemt and Plan Problems Medical Problems: (1) Anxiety Status: Acute (2) COPD with exacerbation Status: Acute (3) Shortness of breath Status: Acute Comment Review of Relevant I have reviewed the following items franki (where applicable) has been applied. Labs Laboratory Tests Test 11/12/18 11:40 11/12/18 13:35 11/12/18 15:45 11/12/18 16:46 White Blood Count 10.2 x10^3/uL (4.0-11.0) Red Blood Count 4.09 x10^6/uL (4.30-5.70) Hemoglobin 9.5 g/dL (13.0-17.5) Hematocrit 30.0 % (39.0-53.0) Mean Corpuscular Volume 73 fL (79-100) Mean Corpuscular Hemoglobin 23 pg (25-35) Mean Corpuscular Hemoglobin Concent 32 g/dL (31-37) Red Cell Distribution Width 21.1 % (11.5-14.5) Platelet Count 231 x10^3/uL (140-400) Neutrophils (%) (Auto) 92 % (31-73) Lymphocytes (%) (Auto) 2 % (24-48) Monocytes (%) (Auto) 4 % (0-9) Eosinophils (%) (Auto) 0 % (0-3) Basophils (%) (Auto) 1 % (0-3) Neutrophils # (Auto) 9.4 x10^3/uL (1.8-7.7) Lymphocytes # (Auto) 0.2 x10^3/uL (1.0-4.8) Monocytes # (Auto) 0.5 x10^3/uL (0.0-1.1) Eosinophils # (Auto) 0.0 x10^3/uL (0.0-0.7) Basophils # (Auto) 0.1 x10^3/uL (0.0-0.2) Segmented Neutrophils % 95 % (35-66) Lymphocytes % 2 % (24-48) Monocytes % 3 % (0-10) Platelet Estimate Adequate (ADEQUATE) Hypochromasia Slight Poikilocytosis Present Anisocytosis Mod Microcytosis Present Ovalocytes Present Schistocytes Occ Sodium Level 142 mmol/L (136-145) Potassium Level 3.9 mmol/L (3.5-5.1) Chloride Level 99 mmol/L (98-107) Carbon Dioxide Level 34 mmol/L (21-32) Anion Gap 9 (6-14) Blood Urea Nitrogen 15 mg/dL (8-26) Creatinine 1.0 mg/dL (0.7-1.3) Estimated GFR (Cockcroft-Gault) 92.5 BUN/Creatinine Ratio 15 (6-20) Glucose Level 118 mg/dL (70-99) Lactic Acid Level 3.6 mmol/L (0.4-2.0) 3.9 mmol/L (0.4-2.0) Calcium Level 9.7 mg/dL (8.5-10.1) Total Bilirubin 0.7 mg/dL (0.2-1.0) Aspartate Amino Transf (AST/SGOT) 16 U/L (15-37) Alanine Aminotransferase (ALT/SGPT) 24 U/L (16-63) Alkaline Phosphatase 99 U/L (46-116) Creatine Kinase 115 U/L (39-308) Troponin I Quantitative < 0.017 ng/mL (0.000-0.055) AB-Jhn-I-Type Natriuretic Peptide 111 pg/mL (0-124) Total Protein 7.1 g/dL (6.4-8.2) Albumin 3.9 g/dL (3.4-5.0) Albumin/Globulin Ratio 1.2 (1.0-1.7) O2 Saturation 95 % (92-99) Arterial Blood pH 7.41 (7.35-7.45) Arterial Blood pCO2 at Patient Temp 40 mmHg (35-46) Arterial Blood pO2 at Patient Temp 84 mmHg (65-108) Arterial Blood HCO3 25 mmol/L (21-28) Arterial Blood Base Excess 1 mmol/L (-3-3) FiO2 28 Glucose (Fingerstick) 291 mg/dL (70-99) Test 11/12/18 21:19 11/13/18 07:35 Glucose (Fingerstick) 236 mg/dL (70-99) 134 mg/dL (70-99) Laboratory Tests Test 11/12/18 11:40 11/12/18 13:35 11/12/18 15:45 11/12/18 16:46 White Blood Count 10.2 x10^3/uL (4.0-11.0) Red Blood Count 4.09 x10^6/uL (4.30-5.70) Hemoglobin 9.5 g/dL (13.0-17.5) Hematocrit 30.0 % (39.0-53.0) Mean Corpuscular Volume 73 fL (79-100) Mean Corpuscular Hemoglobin 23 pg (25-35) Mean Corpuscular Hemoglobin Concent 32 g/dL (31-37) Red Cell Distribution Width 21.1 % (11.5-14.5) Platelet Count 231 x10^3/uL (140-400) Neutrophils (%) (Auto) 92 % (31-73) Lymphocytes (%) (Auto) 2 % (24-48) Monocytes (%) (Auto) 4 % (0-9) Eosinophils (%) (Auto) 0 % (0-3) Basophils (%) (Auto) 1 % (0-3) Neutrophils # (Auto) 9.4 x10^3/uL (1.8-7.7) Lymphocytes # (Auto) 0.2 x10^3/uL (1.0-4.8) Monocytes # (Auto) 0.5 x10^3/uL (0.0-1.1) Eosinophils # (Auto) 0.0 x10^3/uL (0.0-0.7) Basophils # (Auto) 0.1 x10^3/uL (0.0-0.2) Segmented Neutrophils % 95 % (35-66) Lymphocytes % 2 % (24-48) Monocytes % 3 % (0-10) Platelet Estimate Adequate (ADEQUATE) Hypochromasia Slight Poikilocytosis Present Anisocytosis Mod Microcytosis Present Ovalocytes Present Schistocytes Occ Sodium Level 142 mmol/L (136-145) Potassium Level 3.9 mmol/L (3.5-5.1) Chloride Level 99 mmol/L (98-107) Carbon Dioxide Level 34 mmol/L (21-32) Anion Gap 9 (6-14) Blood Urea Nitrogen 15 mg/dL (8-26) Creatinine 1.0 mg/dL (0.7-1.3) Estimated GFR (Cockcroft-Gault) 92.5 BUN/Creatinine Ratio 15 (6-20) Glucose Level 118 mg/dL (70-99) Lactic Acid Level 3.6 mmol/L (0.4-2.0) 3.9 mmol/L (0.4-2.0) Calcium Level 9.7 mg/dL (8.5-10.1) Total Bilirubin 0.7 mg/dL (0.2-1.0) Aspartate Amino Transf (AST/SGOT) 16 U/L (15-37) Alanine Aminotransferase (ALT/SGPT) 24 U/L (16-63) Alkaline Phosphatase 99 U/L (46-116) Creatine Kinase 115 U/L (39-308) Troponin I Quantitative < 0.017 ng/mL (0.000-0.055) CQ-Zaj-J-Type Natriuretic Peptide 111 pg/mL (0-124) Total Protein 7.1 g/dL (6.4-8.2) Albumin 3.9 g/dL (3.4-5.0) Albumin/Globulin Ratio 1.2 (1.0-1.7) O2 Saturation 95 % (92-99) Arterial Blood pH 7.41 (7.35-7.45) Arterial Blood pCO2 at Patient Temp 40 mmHg (35-46) Arterial Blood pO2 at Patient Temp 84 mmHg (65-108) Arterial Blood HCO3 25 mmol/L (21-28) Arterial Blood Base Excess 1 mmol/L (-3-3) FiO2 28 Glucose (Fingerstick) 291 mg/dL (70-99) Test 11/12/18 21:19 11/13/18 07:35 Glucose (Fingerstick) 236 mg/dL (70-99) 134 mg/dL (70-99) Medications Current Medications Albuterol/ Ipratropium (Duoneb) 3 ml 1X ONCE NEB Last administered on 11/12/18at 11:48; Start 11/12/18 at 11:45; Stop 11/12/18 at 11:46; Status DC Methylprednisolone Sodium Succinate (SOLU-Medrol 125MG VIAL) 125 mg 1X ONCE IV Last administered on 11/12/18at 11:44; Start 11/12/18 at 11:45; Stop 11/12/18 at 11:46; Status DC Ceftriaxone Sodium (Rocephin) 1 gm 1X ONCE IVP Last administered on 11/12/18at 13:14; Start 11/12/18 at 13:00; Stop 11/12/18 at 13:01; Status DC Methylprednisolone Sodium Succinate (SOLU-Medrol 125MG VIAL) 60 mg Q8HRS IV Last administered on 11/13/18at 06:16; Start 11/12/18 at 14:00 Albuterol/ Ipratropium (Duoneb) 3 ml RTQID NEB Last administered on 11/13/18at 07:24; Start 11/12/18 at 16:00 Ceftriaxone Sodium (Rocephin) 1 gm Q24H IVP ; Start 11/13/18 at 13:00 Insulin Human Lispro (HumaLOG) 0-5 UNITS TIDWMEALS SQ ; Start 11/13/18 at 08:00; Stop 11/12/18 at 19:21; Status DC Dextrose (Dextrose 50%-Water Syringe) 12.5 gm PRN Q15MIN PRN IV SEE COMMENTS; Start 11/12/18 at 18:00 Tramadol HCl (Ultram) 50 mg PRN Q8HRS PRN PO MODERATE PAIN, SEVERE PAIN; Start 11/12/18 at 18:00; Stop 11/12/18 at 19:19; Status DC Acetaminophen (Tylenol) 650 mg PRN Q4HRS PRN PO TEMP OVER 100.4F OR MILD PAIN; Start 11/12/18 at 18:00 Albuterol Sulfate (Ventolin Neb Soln) 2.5 mg PRN Q2HR PRN NEB SHORTNESS OF BREATH; Start 11/12/18 at 17:55 Aspirin (Ecotrin) 81 mg DAILYWBKFT PO ; Start 11/13/18 at 08:00 Atorvastatin Calcium (Lipitor) 10 mg HS PO Last administered on 11/12/18at 21:29; Start 11/12/18 at 21:00 Benzonatate (Tessalon Perle) 100 mg TID PO Last administered on 11/12/18at 21:29; Start 11/12/18 at 21:00 Docusate Sodium (Colace) 100 mg DAILY PO ; Start 11/13/18 at 09:00 Furosemide (Lasix) 40 mg DAILY PO ; Start 11/13/18 at 09:00 Guaifenesin (Robitussin) 200 mg PRN Q4HRS PRN PO COUGH Last administered on 11/12/18 21:28; Start 11/12/18 at 19:15 Insulin Human Lispro (HumaLOG) TIDWMEALS SQ ; Start 11/13/18 at 08:00 Albuterol/ Ipratropium (Duoneb) 3 ml RTQID NEB ; Start 11/12/18 at 20:00; Status UNV Lactobacillus Rhamnosus (Culturelle) 1 cap BID PO Last administered on 11/12/18 21:28; Start 11/12/18 at 21:00 Lidocaine (Lidoderm) 1 patch DAILY TP ; Start 11/13/18 at 09:00 Metformin HCl (Glucophage) 500 mg DAILYWBKFT PO ; Start 11/13/18 at 08:00 Metoclopramide HCl (Reglan) 5 mg QIDACHS PO Last administered on 11/12/18 21:27; Start 11/12/18 at 21:00 Montelukast Sodium (Singulair) 10 mg QHS PO Last administered on 11/12/18 21:28; Start 11/12/18 at 21:00 Nystatin (Nystatin Oral Susp) 5 ml [id number] Last administered on 11/12/18 21:27; Start 11/12/18 at 21:00 Polyethylene Glycol (miraLAX PACKET) 17 gm BID PO Last administered on 11/12/18at 21:40; Start 11/12/18 at 21:00 Prednisone (Prednisone) 40 mg DAILY PO ; Start 11/13/18 at 09:00; Status UNV Tizanidine HCl (Zanaflex) 4 mg TID PRN PO MUSCLE SPASMS Last administered on 11/12/18 21:28; Start 11/12/18 at 19:15 Tramadol HCl (Ultram) 50 mg PRN Q6HRS PRN PO PAIN Last administered on 11/12/18 21:28; Start 11/12/18 at 19:15 Active Scripts Active Prednisone 20 Mg Tablet 40 Mg PO DAILY 14 Days Culturelle (Lactobacillus Rhamnosus Gg) 1 Each Cap.sprink 1 Cap PO BID 30 Days Colace (Docusate Sodium) 100 Mg Capsule 100 Mg PO DAILY 30 Days Fluticasone Propionate Nasal [place] (Fluticasone Propionate) 16 Gm [place].susp 2 [place] NS DAILY 30 Days Miralax (Polyethylene Glycol 3350) 119 Gm Powder 17 Gm PO BID Nystatin 100,000 Unit/1 Ml Oral.susp 5 Ml SWSW [id number] 5 Days Duoneb 0.5-3(2.5) Mg/3 Ml (Albuterol/Ipratropium) 3 Ml Ampul.neb 3 Ml NEB QID Tessalon Perle (Benzonatate) 100 Mg Capsule 1 Cap PO TID Montelukast Sodium Tablet (Montelukast Sodium) 10 Mg Tablet 10 Mg PO QHS Lidocaine PATCH (Lidocaine) 1 Each Adh..patch 1 Each TP DAILY 30 Days REMOVE AFTER 12 HOURS Humalog (Insulin Lispro) 100 Unit/1 Ml Insuln.pen 0 Units SQ TIDWMEALS 30 Days Aspirin Ec (Aspirin) 81 Mg Tablet.dr 81 Mg PO DAILYWBKFT 30 Days Tramadol Hcl 50 Mg Tablet 50 Mg PO PRN Q6HRS PRN 6 Days Guaifenesin 100 Mg/5 Ml Liquid 200 Mg PO PRN Q4HRS PRN 30 Days Tylenol (Acetaminophen) 325 Mg Tablet 650 Mg PO PRN Q4HRS PRN 10 Days Ventolin Hfa Inhaler (Albuterol Sulfate) 18 Gm Hfa.aer.ad 2 Puff INH Q4HRS Reglan (Metoclopramide Hcl) 10 Mg Tablet 0.5 Tab PO QID 30 Days Reported Tizanidine Hcl 4 Mg Tablet 4 Mg PO TID PRN Xarelto (Rivaroxaban) 20 Mg Tablet 20 Mg PO DAILY Metformin Hcl 500 Mg Tablet 500 Mg PO DAILYWBKFT Pulmicort (Budesonide) 0.25 Mg/2 Ml Ampul.neb 1 Vial NEB BID Albuterol Sulfate Neb Soln (Albuterol Sulfate) 2.5 Mg/3 Ml Vial.neb 1 Vial NEB PRN Q2HR PRN Furosemide 40 Mg Tablet 1 Tab PO DAILY Vitamin D3 (Cholecalciferol (Vitamin D3)) 5,000 Unit Tablet 5,000 Unit PO DAILY Potassium Chloride 20 Meq Tablet.er 20 Meq PO DAILY Protonix (Pantoprazole Sodium) 20 Mg Tablet.dr 1 Tab PO DAILY Atorvastatin Calcium 10 Mg Tablet 10 Mg PO HS Symbicort 160-4.5 Mcg Inhaler (Budesonide/Formoterol Fumarate) 10.2 Gm Hfa.aer.ad 2 Puff IH BID Vitals/I & O Vital Sign - Last 24 Hours 11/12/18 11/12/18 11/12/18 11/12/18 11:12 11:44 11:50 12:24 Temp 99.2 99.2 Pulse 106 106 94 Resp 26 22 18 B/P (MAP) 128/82 (97) 108/73 (85) 133/73 (93) Pulse Ox 98 99 100 98 O2 Delivery Nasal Cannula Nasal Cannula Nasal Cannula Nasal Cannula O2 Flow Rate 4.0 4.0 2.0 4.0 11/12/18 11/12/18 11/12/18 11/12/18 12:44 13:14 13:30 13:35 Temp 98.7 98.7 Pulse 91 110 113 Resp 26 26 20 B/P (MAP) 132/79 (96) 144/71 (95) 119/64 (82) Pulse Ox 98 93 98 O2 Delivery Nasal Cannula Nasal Cannula Nasal Cannula Room Air O2 Flow Rate 4.0 4.0 2.0 1.0 11/12/18 11/12/18 11/12/18 11/12/18 15:25 15:30 19:36 19:59 Temp 98.9 98.8 98.9 98.8 Pulse 70 105 Resp 20 20 B/P (MAP) 119/66 (83) 124/74 (91) Pulse Ox 100 97 99 93 O2 Delivery Nasal Cannula Room Air Nasal Cannula Nasal Cannula O2 Flow Rate 2.0 1.0 1.0 2.0 11/12/18 11/12/18 11/12/18 11/13/18 20:00 22:30 23:34 03:00 Temp 98.9 98.9 Pulse 80 81 Resp 20 18 B/P (MAP) 121/66 (84) 123/67 (85) Pulse Ox 98 99 O2 Delivery Nasal Cannula Nasal Cannula Nasal Cannula Nasal Cannula O2 Flow Rate 2.0 2.0 1.0 1.0 11/13/18 11/13/18 07:00 07:24 Temp 97.9 97.9 Pulse 83 Resp 18 B/P (MAP) 132/77 (95) Pulse Ox 94 100 O2 Delivery Nasal Cannula Nasal Cannula O2 Flow Rate 1.0 2.0 Intake and Output 11/12/18 11/12/18 11/13/18 15:00 23:00 07:00 Intake Total 300 ml 520 ml Output Total 400 ml 200 ml Balance -100 ml 320 ml TOMAS BAIG MD Nov 13, 2018 08:11
[2018-11-13] MEDS ORDERED: predniSONE 20 MG TABLET PO SCH (09:00)
[2018-11-13] MEDS: traMADol 50 MG TABLET PO PRN ×2 (09:04→19:14)
--- NOTE | 2018-11-13 09:37 | PDOC ---
PULMONARY PROGRESS NOTES Subjective no new issues Vitals Vital Signs Date Time Temp Pulse Resp B/P (MAP) Pulse Ox O2 Delivery O2 Flow Rate FiO2 11/13/18 09:04 Nasal Cannula 2.0 11/13/18 07:24 100 11/13/18 07:00 97.9 83 18 132/77 (95) 97.9 General: Alert, Oriented X4, No acute distress Lungs: Other (decrease bs) Cardiovascular: S1, S2 Abdomen: Soft, Non-tender Neuro Exam: Alert Extremities: Other Skin: Warm Labs Laboratory Tests Test 11/12/18 11:40 11/12/18 13:35 11/12/18 15:45 11/12/18 16:46 White Blood Count 10.2 x10^3/uL (4.0-11.0) Red Blood Count 4.09 x10^6/uL (4.30-5.70) Hemoglobin 9.5 g/dL (13.0-17.5) Hematocrit 30.0 % (39.0-53.0) Mean Corpuscular Volume 73 fL (79-100) Mean Corpuscular Hemoglobin 23 pg (25-35) Mean Corpuscular Hemoglobin Concent 32 g/dL (31-37) Red Cell Distribution Width 21.1 % (11.5-14.5) Platelet Count 231 x10^3/uL (140-400) Neutrophils (%) (Auto) 92 % (31-73) Lymphocytes (%) (Auto) 2 % (24-48) Monocytes (%) (Auto) 4 % (0-9) Eosinophils (%) (Auto) 0 % (0-3) Basophils (%) (Auto) 1 % (0-3) Neutrophils # (Auto) 9.4 x10^3/uL (1.8-7.7) Lymphocytes # (Auto) 0.2 x10^3/uL (1.0-4.8) Monocytes # (Auto) 0.5 x10^3/uL (0.0-1.1) Eosinophils # (Auto) 0.0 x10^3/uL (0.0-0.7) Basophils # (Auto) 0.1 x10^3/uL (0.0-0.2) Segmented Neutrophils % 95 % (35-66) Lymphocytes % 2 % (24-48) Monocytes % 3 % (0-10) Platelet Estimate Adequate (ADEQUATE) Hypochromasia Slight Poikilocytosis Present Anisocytosis Mod Microcytosis Present Ovalocytes Present Schistocytes Occ Sodium Level 142 mmol/L (136-145) Potassium Level 3.9 mmol/L (3.5-5.1) Chloride Level 99 mmol/L (98-107) Carbon Dioxide Level 34 mmol/L (21-32) Anion Gap 9 (6-14) Blood Urea Nitrogen 15 mg/dL (8-26) Creatinine 1.0 mg/dL (0.7-1.3) Estimated GFR (Cockcroft-Gault) 92.5 BUN/Creatinine Ratio 15 (6-20) Glucose Level 118 mg/dL (70-99) Lactic Acid Level 3.6 mmol/L (0.4-2.0) 3.9 mmol/L (0.4-2.0) Calcium Level 9.7 mg/dL (8.5-10.1) Total Bilirubin 0.7 mg/dL (0.2-1.0) Aspartate Amino Transf (AST/SGOT) 16 U/L (15-37) Alanine Aminotransferase (ALT/SGPT) 24 U/L (16-63) Alkaline Phosphatase 99 U/L (46-116) Creatine Kinase 115 U/L (39-308) Troponin I Quantitative < 0.017 ng/mL (0.000-0.055) UJ-[id number]-[id number]-Type Natriuretic Peptide 111 pg/mL (0-124) Total Protein 7.1 g/dL (6.4-8.2) Albumin 3.9 g/dL (3.4-5.0) Albumin/Globulin Ratio 1.2 (1.0-1.7) O2 Saturation 95 % (92-99) Arterial Blood pH 7.41 (7.35-7.45) Arterial Blood pCO2 at Patient Temp 40 mmHg (35-46) Arterial Blood pO2 at Patient Temp 84 mmHg (65-108) Arterial Blood HCO3 25 mmol/L (21-28) Arterial Blood Base Excess 1 mmol/L (-3-3) FiO2 28 Glucose (Fingerstick) 291 mg/dL (70-99) Test 11/12/18 21:19 11/13/18 07:35 Glucose (Fingerstick) 236 mg/dL (70-99) 134 mg/dL (70-99) Laboratory Tests Test 11/12/18 11:40 11/12/18 13:35 11/12/18 15:45 11/12/18 16:46 White Blood Count 10.2 x10^3/uL (4.0-11.0) Red Blood Count 4.09 x10^6/uL (4.30-5.70) Hemoglobin 9.5 g/dL (13.0-17.5) Hematocrit 30.0 % (39.0-53.0) Mean Corpuscular Volume 73 fL (79-100) Mean Corpuscular Hemoglobin 23 pg (25-35) Mean Corpuscular Hemoglobin Concent 32 g/dL (31-37) Red Cell Distribution Width 21.1 % (11.5-14.5) Platelet Count 231 x10^3/uL (140-400) Neutrophils (%) (Auto) 92 % (31-73) Lymphocytes (%) (Auto) 2 % (24-48) Monocytes (%) (Auto) 4 % (0-9) Eosinophils (%) (Auto) 0 % (0-3) Basophils (%) (Auto) 1 % (0-3) Neutrophils # (Auto) 9.4 x10^3/uL (1.8-7.7) Lymphocytes # (Auto) 0.2 x10^3/uL (1.0-4.8) Monocytes # (Auto) 0.5 x10^3/uL (0.0-1.1) Eosinophils # (Auto) 0.0 x10^3/uL (0.0-0.7) Basophils # (Auto) 0.1 x10^3/uL (0.0-0.2) Segmented Neutrophils % 95 % (35-66) Lymphocytes % 2 % (24-48) Monocytes % 3 % (0-10) Platelet Estimate Adequate (ADEQUATE) Hypochromasia Slight Poikilocytosis Present Anisocytosis Mod Microcytosis Present Ovalocytes Present Schistocytes Occ Sodium Level 142 mmol/L (136-145) Potassium Level 3.9 mmol/L (3.5-5.1) Chloride Level 99 mmol/L (98-107) Carbon Dioxide Level 34 mmol/L (21-32) Anion Gap 9 (6-14) Blood Urea Nitrogen 15 mg/dL (8-26) Creatinine 1.0 mg/dL (0.7-1.3) Estimated GFR (Cockcroft-Gault) 92.5 BUN/Creatinine Ratio 15 (6-20) Glucose Level 118 mg/dL (70-99) Lactic Acid Level 3.6 mmol/L (0.4-2.0) 3.9 mmol/L (0.4-2.0) Calcium Level 9.7 mg/dL (8.5-10.1) Total Bilirubin 0.7 mg/dL (0.2-1.0) Aspartate Amino Transf (AST/SGOT) 16 U/L (15-37) Alanine Aminotransferase (ALT/SGPT) 24 U/L (16-63) Alkaline Phosphatase 99 U/L (46-116) Creatine Kinase 115 U/L (39-308) Troponin I Quantitative < 0.017 ng/mL (0.000-0.055) PE-Soo-I-Type Natriuretic Peptide 111 pg/mL (0-124) Total Protein 7.1 g/dL (6.4-8.2) Albumin 3.9 g/dL (3.4-5.0) Albumin/Globulin Ratio 1.2 (1.0-1.7) O2 Saturation 95 % (92-99) Arterial Blood pH 7.41 (7.35-7.45) Arterial Blood pCO2 at Patient Temp 40 mmHg (35-46) Arterial Blood pO2 at Patient Temp 84 mmHg (65-108) Arterial Blood HCO3 25 mmol/L (21-28) Arterial Blood Base Excess 1 mmol/L (-3-3) FiO2 28 Glucose (Fingerstick) 291 mg/dL (70-99) Test 11/12/18 21:19 11/13/18 07:35 Glucose (Fingerstick) 236 mg/dL (70-99) 134 mg/dL (70-99) Medications Active Scripts Medications Dose Route/Sig Max Daily Dose Days Date Category Dose Instructions Prednisone 20 Mg Tablet 40 Mg PO DAILY 14 11/11/18 Rx Culturelle (Lactobacillus Rhamnosus Gg) 1 Each Cap.sprink 1 Cap PO BID 30 11/11/18 Rx Colace (Docusate Sodium) 100 Mg Capsule 100 Mg PO DAILY 30 11/11/18 Rx Fluticasone Propionate Nasal [place] (Fluticasone Propionate) 16 Gm [place].susp 2 [place] NS DAILY 30 11/11/18 Rx Tizanidine Hcl 4 Mg Tablet 4 Mg PO TID PRN 11/04/18 Reported Miralax (Polyethylene Glycol 3350) 119 Gm Powder 17 Gm PO BID 11/03/18 Rx Nystatin 100,000 Unit/1 Ml Oral.susp 5 Ml SWSW [id number] 10/31/18 Rx Duoneb 0.5-3(2.5) Mg/3 Ml (Albuterol/Ipratropium) 3 Ml Ampul.neb 3 Ml NEB QID 10/28/18 Rx Tessalon Perle (Benzonatate) 100 Mg Capsule 1 Cap PO TID 10/28/18 Rx Montelukast Sodium Tablet (Montelukast Sodium) 10 Mg Tablet 10 Mg PO QHS 10/28/18 Rx Lidocaine PATCH (Lidocaine) 1 Each Adh..patch 1 Each TP DAILY 30 09/11/18 Rx REMOVE AFTER 12 HOURS Xarelto (Rivaroxaban) 20 Mg Tablet 20 Mg PO DAILY 09/09/18 Reported Metformin Hcl 500 Mg Tablet 500 Mg PO DAILYWBKFT 09/09/18 Reported Humalog (Insulin Lispro) 100 Unit/1 Ml Insuln.pen 0 Units SQ TIDWMEALS 08/28/18 Rx Aspirin Ec (Aspirin) 81 Mg Tablet.dr 81 Mg PO DAILYWBKFT 08/28/18 Rx Pulmicort (Budesonide) 0.25 Mg/2 Ml Ampul.neb 1 Vial NEB BID 08/25/18 Reported Albuterol Sulfate Neb Soln (Albuterol Sulfate) 2.5 Mg/3 Ml Vial.neb 1 Vial NEB PRN Q2HR PRN 08/25/18 Reported Tramadol Hcl 50 Mg Tablet 50 Mg PO PRN Q6HRS PRN 6 07/12/18 Rx Furosemide 40 Mg Tablet 1 Tab PO DAILY 06/20/18 Reported Guaifenesin 100 Mg/5 Ml Liquid 200 Mg PO PRN Q4HRS PRN 30 05/30/18 Rx Tylenol (Acetaminophen) 325 Mg Tablet 650 Mg PO PRN Q4HRS PRN 10 05/30/18 Rx Ventolin Hfa Inhaler (Albuterol Sulfate) 18 Gm Hfa.aer.ad 2 Puff INH Q4HRS 05/10/18 Rx Vitamin D3 (Cholecalciferol (Vitamin D3)) 5,000 Unit Tablet 5,000 Unit PO DAILY 03/15/18 Reported Reglan (Metoclopramide Hcl) 10 Mg Tablet 0.5 Tab PO QID 30 02/14/18 Rx Potassium Chloride 20 Meq Tablet.er 20 Meq PO DAILY 01/13/18 Reported Protonix (Pantoprazole Sodium) 20 Mg Tablet.dr 1 Tab PO DAILY 11/18/17 Reported Atorvastatin Calcium 10 Mg Tablet 10 Mg PO HS 08/21/17 Reported Symbicort 160-4.5 Mcg Inhaler (Budesonide/Formoterol Fumarate) 10.2 Gm Hfa.aer.ad 2 Puff IH BID 09/21/15 Reported Impression . 1. 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 He has declined to go to skilled care/rehab in the past, but was in the process of going to rehab from his sister's house, but could not make it due to increasing dyspnea, but he is agreeable to go to rehab/skilled facility from this hospitalization. Previously, his ABGs have not qualified him for BiPAP as his pCO2 was within normal limits. repeat ABGs stable again His chest x-ray did not show any new findings. 2. Lactic acidosis from increased work of breathing and unlikely sepsis. Plan . 1. Continue present oxygen. 2. ABGs. does not qualify for BIPAP 3. Taper steroids. 4. Continue bronchodilators. 5. Antibiotics can be discontinued 6. Discussed with residential case manager at this point, there is not much we can do in the hospital. He needs adoption social worker help and social support. At this point, he is agreeable to go to rehab facility and that will be his best option. We will be available for any further recommendations. VIN MEAD MD Nov 13, 2018 09:37
[2018-11-13] MEDS ORDERED: FLU VAX QS 2019-20 (36MOS+)/PF 0.5 ML SYRINGE. VAX IM ONE (09:45)
[2018-11-13 11:17] VITALS: BP 126/76
[2018-11-13] MEDS ORDERED: cefTRIAXone IV Push 1 GM VIAL. IVP SCH (13:00)
[2018-11-13 14:32] VITALS: BP 133/68
[2018-11-13 19:30] VITALS: BP 129/77
[2018-11-13] MEDS: ATORVASTATIN CALCIUM 10 MG TABLET. PO SCH (20:07)
[2018-11-13] MEDS: MONTELUKAST SODIUM 10 MG TABLET. PO SCH (20:08)
[2018-11-13 23:24] VITALS: BP 131/57
[2018-11-14 03:40] VITALS: BP 147/88
[2018-11-14] MEDS: methylPREDNISolone SOD SUCC PF 125 MG/2 ML VIAL. IV SCH (06:16)
[2018-11-14] MEDS: METOCLOPRAMIDE 10 MG TABLET. PO SCH ×2 (06:17→11:30)
[2018-11-14] MEDS: IPRATRPIUM/ALBUTEROL 0.5/2.5MG 3 ML NEBU. NEB SCH ×3 (07:29→15:08)
[2018-11-14 07:51] VITALS: BP 155/83
[2018-11-14] MEDS: INSULIN LISPRO 300 UNITS/3 ML VIAL. SQ SCH ×2 (08:00→12:00)
[2018-11-14] MEDS: metFORMIN 500 MG TABLET PO SCH (08:36)
[2018-11-14] MEDS: traMADol 50 MG TABLET PO PRN (08:36)
[2018-11-14] MEDS: POLYETHYLENE GLYCOL 3350 17 GM PACKET. PO SCH (08:36)
[2018-11-14] MEDS: ASPIRIN ENTERIC COATED 81 MG TABLET.DR. PO SCH (08:37)
[2018-11-14] MEDS: LACTOBACILLUS RHAMNOSUS GG 1 CAPSULE. PO SCH (08:37)
[2018-11-14] MEDS: FUROSEMIDE 40 MG TABLET. PO SCH (08:37)
[2018-11-14] MEDS: DOCUSATE SODIUM 100 MG CAPSULE. PO SCH (08:37)
[2018-11-14] MEDS: BENZONATATE 100 MG CAPSULE. PO SCH (08:37)
[2018-11-14] MEDS: LIDOCAINE (700MG/PATCH) PATCH. TP SCH (08:39)
--- NOTE | 2018-11-14 08:44 | NUR ---
SW following pt for dc planning. Please review SWer previous admission notes for assessments. Pt now agreeable to go to SNF but does not appear to need PT/OT. SW informed him, it is time he considers LTC placement and pt states he wants to try SNF first. Pt also has a packed bag this time and stated he was trying to go to [place] when his COPD became worse and had to come to [facility]. Plan 1. SW phoned and faxed referral to [facility] in [facility]. Pt acceptance and admission pending 2. Will continue to follow.
[2018-11-14] MEDS: NYSTATIN 100,000 UNITS/ML 5 ML ORAL.SUSP. SWSW SCH ×2 (09:30→13:10)
--- NOTE | 2018-11-14 10:29 | PDOC ---
PROGRESS NOTES History of Present Illness History of Present Illness DISCHARGE DX ACUTE ON CHRONIC Respiratory failure. 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 Approximately 40 percent T8 vertebral body height loss is new from 09/08/2018 exam. Correlate for point tenderness in the region. MRI thoracic spine could be obtained for further evaluation if there is concern for acute fracture. 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 following with pulm UNDERWEIGHT anemia hgb 6.8 transfused 11/10 hgb now 9.5 patient is not capable of living independently at home and should be at the long term admitted. IV antibiotics, steroids, TAPER breathing treatments, oxygen. support Consult Pulmonary. Deep venous thrombosis prophylaxis. Full code D/C SNF TODAY 34 MIN PT EXAM D/C PLANNING , CHART REVIEW, > 50% OF TIME SPENT WITH EXAM, CHART REVIEW, PT CARE COORDINATION Vitals Vitals Vital Signs Date Time Temp Pulse Resp B/P (MAP) Pulse Ox O2 Delivery O2 Flow Rate FiO2 11/14/18 07:51 97.6 64 18 155/83 (107) 100 Nasal Cannula 2.5 97.6 Physical Exam Lungs: Other (decrease bs) Labs LABS Laboratory Tests Test 11/13/18 10:55 11/13/18 17:11 11/13/18 20:10 11/14/18 07:36 Glucose (Fingerstick) 182 mg/dL (70-99) 211 mg/dL (70-99) 151 mg/dL (70-99) 120 mg/dL (70-99) Assessment and Plan Assessmemt and Plan Problems Medical Problems: (1) Anxiety Status: Acute (2) COPD with exacerbation Status: Acute (3) Shortness of breath Status: Acute Comment Review of Relevant I have reviewed the following items franki (where applicable) has been applied. Labs Laboratory Tests Test 11/12/18 11:40 11/12/18 13:35 11/12/18 15:45 11/12/18 16:46 White Blood Count 10.2 x10^3/uL (4.0-11.0) Red Blood Count 4.09 x10^6/uL (4.30-5.70) Hemoglobin 9.5 g/dL (13.0-17.5) Hematocrit 30.0 % (39.0-53.0) Mean Corpuscular Volume 73 fL (79-100) Mean Corpuscular Hemoglobin 23 pg (25-35) Mean Corpuscular Hemoglobin Concent 32 g/dL (31-37) Red Cell Distribution Width 21.1 % (11.5-14.5) Platelet Count 231 x10^3/uL (140-400) Neutrophils (%) (Auto) 92 % (31-73) Lymphocytes (%) (Auto) 2 % (24-48) Monocytes (%) (Auto) 4 % (0-9) Eosinophils (%) (Auto) 0 % (0-3) Basophils (%) (Auto) 1 % (0-3) Neutrophils # (Auto) 9.4 x10^3/uL (1.8-7.7) Lymphocytes # (Auto) 0.2 x10^3/uL (1.0-4.8) Monocytes # (Auto) 0.5 x10^3/uL (0.0-1.1) Eosinophils # (Auto) 0.0 x10^3/uL (0.0-0.7) Basophils # (Auto) 0.1 x10^3/uL (0.0-0.2) Segmented Neutrophils % 95 % (35-66) Lymphocytes % 2 % (24-48) Monocytes % 3 % (0-10) Platelet Estimate Adequate (ADEQUATE) Hypochromasia Slight Poikilocytosis Present Anisocytosis Mod Microcytosis Present Ovalocytes Present Schistocytes Occ Sodium Level 142 mmol/L (136-145) Potassium Level 3.9 mmol/L (3.5-5.1) Chloride Level 99 mmol/L (98-107) Carbon Dioxide Level 34 mmol/L (21-32) Anion Gap 9 (6-14) Blood Urea Nitrogen 15 mg/dL (8-26) Creatinine 1.0 mg/dL (0.7-1.3) Estimated GFR (Cockcroft-Gault) 92.5 BUN/Creatinine Ratio 15 (6-20) Glucose Level 118 mg/dL (70-99) Lactic Acid Level 3.6 mmol/L (0.4-2.0) 3.9 mmol/L (0.4-2.0) Calcium Level 9.7 mg/dL (8.5-10.1) Total Bilirubin 0.7 mg/dL (0.2-1.0) Aspartate Amino Transf (AST/SGOT) 16 U/L (15-37) Alanine Aminotransferase (ALT/SGPT) 24 U/L (16-63) Alkaline Phosphatase 99 U/L (46-116) Creatine Kinase 115 U/L (39-308) Troponin I Quantitative < 0.017 ng/mL (0.000-0.055) HH-Jvl-G-Type Natriuretic Peptide 111 pg/mL (0-124) Total Protein 7.1 g/dL (6.4-8.2) Albumin 3.9 g/dL (3.4-5.0) Albumin/Globulin Ratio 1.2 (1.0-1.7) O2 Saturation 95 % (92-99) Arterial Blood pH 7.41 (7.35-7.45) Arterial Blood pCO2 at Patient Temp 40 mmHg (35-46) Arterial Blood pO2 at Patient Temp 84 mmHg (65-108) Arterial Blood HCO3 25 mmol/L (21-28) Arterial Blood Base Excess 1 mmol/L (-3-3) FiO2 28 Glucose (Fingerstick) 291 mg/dL (70-99) Test 11/12/18 21:19 11/13/18 07:35 11/13/18 10:55 11/13/18 17:11 Glucose (Fingerstick) 236 mg/dL (70-99) 134 mg/dL (70-99) 182 mg/dL (70-99) 211 mg/dL (70-99) Test 11/13/18 20:10 11/14/18 07:36 Glucose (Fingerstick) 151 mg/dL (70-99) 120 mg/dL (70-99) Laboratory Tests Test 11/13/18 10:55 11/13/18 17:11 11/13/18 20:10 11/14/18 07:36 Glucose (Fingerstick) 182 mg/dL (70-99) 211 mg/dL (70-99) 151 mg/dL (70-99) 120 mg/dL (70-99) Microbiology 11/12/18 Blood Culture - Final, Complete Medications Current Medications Albuterol/ Ipratropium (Duoneb) 3 ml 1X ONCE NEB Last administered on 11/12/18at 11:48; Start 11/12/18 at 11:45; Stop 11/12/18 at 11:46; Status DC Methylprednisolone Sodium Succinate (SOLU-Medrol 125MG VIAL) 125 mg 1X ONCE IV Last administered on 11/12/18at 11:44; Start 11/12/18 at 11:45; Stop 11/12/18 at 11:46; Status DC Ceftriaxone Sodium (Rocephin) 1 gm 1X ONCE IVP Last administered on 11/12/18at 13:14; Start 11/12/18 at 13:00; Stop 11/12/18 at 13:01; Status DC Methylprednisolone Sodium Succinate (SOLU-Medrol 125MG VIAL) 60 mg Q8HRS IV Last administered on 11/14/18at 06:16; Start 11/12/18 at 14:00 Albuterol/ Ipratropium (Duoneb) 3 ml RTQID NEB Last administered on 11/14/18at 07:29; Start 11/12/18 at 16:00 Ceftriaxone Sodium (Rocephin) 1 gm Q24H IVP Last administered on 11/13/18at 13:20; Start 11/13/18 at 13:00; Stop 11/13/18 at 16:00; Status DC Insulin Human Lispro (HumaLOG) 0-5 UNITS TIDWMEALS SQ ; Start 11/13/18 at 08:00; Stop 11/12/18 at 19:21; Status DC Dextrose (Dextrose 50%-Water Syringe) 12.5 gm PRN Q15MIN PRN IV SEE COMMENTS; Start 11/12/18 at 18:00 Tramadol HCl (Ultram) 50 mg PRN Q8HRS PRN PO MODERATE PAIN, SEVERE PAIN; Start 11/12/18 at 18:00; Stop 11/12/18 at 19:19; Status DC Acetaminophen (Tylenol) 650 mg PRN Q4HRS PRN PO TEMP OVER 100.4F OR MILD PAIN; Start 11/12/18 at 18:00 Albuterol Sulfate (Ventolin Neb Soln) 2.5 mg PRN Q2HR PRN NEB SHORTNESS OF BREATH; Start 11/12/18 at 17:55 Aspirin (Ecotrin) 81 mg DAILYWBKFT PO Last administered on 11/14/18 08:37; Start 11/13/18 at 08:00 Atorvastatin Calcium (Lipitor) 10 mg HS PO Last administered on 11/13/18 20:07; Start 11/12/18 at 21:00 Benzonatate (Tessalon Perle) 100 mg TID PO Last administered on 11/14/18 08:37; Start 11/12/18 at 21:00 Docusate Sodium (Colace) 100 mg DAILY PO Last administered on 11/14/18 08:37; Start 11/13/18 at 09:00 Furosemide (Lasix) 40 mg DAILY PO Last administered on 11/14/18 08:37; Start 11/13/18 at 09:00 Guaifenesin (Robitussin) 200 mg PRN Q4HRS PRN PO COUGH Last administered on 11/12/18 21:28; Start 11/12/18 at 19:15 Insulin Human Lispro (HumaLOG) TIDWMEALS SQ ; Start 11/13/18 at 08:00 Albuterol/ Ipratropium (Duoneb) 3 ml RTQID NEB ; Start 11/12/18 at 20:00; Status UNV Lactobacillus Rhamnosus (Culturelle) 1 cap BID PO Last administered on 11/14/18 08:37; Start 11/12/18 at 21:00 Lidocaine (Lidoderm) 1 patch DAILY TP Last administered on 11/13/18 08:11; Start 11/13/18 at 09:00 Metformin HCl (Glucophage) 500 mg DAILYWBKFT PO Last administered on 11/14/18 08:36; Start 11/13/18 at 08:00 Metoclopramide HCl (Reglan) 5 mg QIDACHS PO Last administered on 11/14/18 06:17; Start 11/12/18 at 21:00 Montelukast Sodium (Singulair) 10 mg QHS PO Last administered on 10/2/19at 20:08; Start 11/12/18 at 21:00 Nystatin (Nystatin Oral Susp) 5 ml [id number] Last administered on 11/14/18 09:30; Start 11/12/18 at 21:00 Polyethylene Glycol (miraLAX PACKET) 17 gm BID PO Last administered on 11/14/18 08:36; Start 11/12/18 at 21:00 Prednisone (Prednisone) 40 mg DAILY PO ; Start 11/13/18 at 09:00; Status UNV Tizanidine HCl (Zanaflex) 4 mg TID PRN PO MUSCLE SPASMS Last administered on 11/12/18at 21:28; Start 11/12/18 at 19:15 Tramadol HCl (Ultram) 50 mg PRN Q6HRS PRN PO PAIN Last administered on 11/14/18 08:36; Start 11/12/18 at 19:15 Influenza Virus Vaccine Quadrival (Afluria Quad 2019-20 (3yr Up) Syringe) 0.5 ml ONCE ONCE VAX IM Last administered on 11/13/18at 11:27; Start 11/13/18 at 09:45; Stop 11/13/18 at 09:52; Status DC Active Scripts Active Prednisone 20 Mg Tablet 40 Mg PO DAILY 14 Days Culturelle (Lactobacillus Rhamnosus Gg) 1 Each Cap.sprink 1 Cap PO BID 30 Days Colace (Docusate Sodium) 100 Mg Capsule 100 Mg PO DAILY 30 Days Fluticasone Propionate Nasal [place] (Fluticasone Propionate) 16 Gm Enders.susp 2 Enders NS DAILY 30 Days Miralax (Polyethylene Glycol 3350) 119 Gm Powder 17 Gm PO BID Nystatin 100,000 Unit/1 Ml Oral.susp 5 Ml SWSW [id number] 5 Days Duoneb 0.5-3(2.5) Mg/3 Ml (Albuterol/Ipratropium) 3 Ml Ampul.neb 3 Ml NEB QID Tessalon Perle (Benzonatate) 100 Mg Capsule 1 Cap PO TID Montelukast Sodium Tablet (Montelukast Sodium) 10 Mg Tablet 10 Mg PO QHS Lidocaine PATCH (Lidocaine) 1 Each Adh..patch 1 Each TP DAILY 30 Days REMOVE AFTER 12 HOURS Humalog (Insulin Lispro) 100 Unit/1 Ml Insuln.pen 0 Units SQ TIDWMEALS 30 Days Aspirin Ec (Aspirin) 81 Mg Tablet.dr 81 Mg PO DAILYWBKFT 30 Days Tramadol Hcl 50 Mg Tablet 50 Mg PO PRN Q6HRS PRN 6 Days Guaifenesin 100 Mg/5 Ml Liquid 200 Mg PO PRN Q4HRS PRN 30 Days Tylenol (Acetaminophen) 325 Mg Tablet 650 Mg PO PRN Q4HRS PRN 10 Days Ventolin Hfa Inhaler (Albuterol Sulfate) 18 Gm Hfa.aer.ad 2 Puff INH Q4HRS Reglan (Metoclopramide Hcl) 10 Mg Tablet 0.5 Tab PO QID 30 Days Reported Tizanidine Hcl 4 Mg Tablet 4 Mg PO TID PRN Xarelto (Rivaroxaban) 20 Mg Tablet 20 Mg PO DAILY Metformin Hcl 500 Mg Tablet 500 Mg PO DAILYWBKFT Pulmicort (Budesonide) 0.25 Mg/2 Ml Ampul.neb 1 Vial NEB BID Albuterol Sulfate Neb Soln (Albuterol Sulfate) 2.5 Mg/3 Ml Vial.neb 1 Vial NEB PRN Q2HR PRN Furosemide 40 Mg Tablet 1 Tab PO DAILY Vitamin D3 (Cholecalciferol (Vitamin D3)) 5,000 Unit Tablet 5,000 Unit PO DAILY Potassium Chloride 20 Meq Tablet.er 20 Meq PO DAILY Protonix (Pantoprazole Sodium) 20 Mg Tablet.dr 1 Tab PO DAILY Atorvastatin Calcium 10 Mg Tablet 10 Mg PO HS Symbicort 160-4.5 Mcg Inhaler (Budesonide/Formoterol Fumarate) 10.2 Gm Hfa.aer.ad 2 Puff IH BID Vitals/I & O Vital Sign - Last 24 Hours 11/13/18 11/13/18 11/13/18 11/13/18 10:45 11:17 11:24 14:32 Temp 97.7 98.5 97.7 98.5 Pulse 106 106 Resp 18 18 B/P (MAP) 126/76 (93) 133/68 (89) Pulse Ox 98 98 97 O2 Delivery Nasal Cannula Nasal Cannula Nasal Cannula Nasal Cannula O2 Flow Rate 2.0 1.0 2.0 1.0 11/13/18 11/13/18 11/13/18 11/13/18 15:51 19:14 19:30 19:50 Temp 98.7 98.7 Pulse 96 Resp 18 18 B/P (MAP) 129/77 (94) Pulse Ox 99 99 100 O2 Delivery Nasal Cannula Nasal Cannula Nasal Cannula Nasal Cannula O2 Flow Rate 2.0 2.0 1.0 1.0 11/13/18 11/13/18 11/13/18 11/14/18 20:15 20:26 23:24 03:40 Temp 98.1 98.5 98.1 98.5 Pulse 78 82 Resp 18 20 20 B/P (MAP) 131/57 (81) 147/88 (107) Pulse Ox 99 97 97 O2 Delivery Nasal Cannula Nasal Cannula Nasal Cannula Nasal Cannula O2 Flow Rate 2.0 2.0 1.0 2.5 11/14/18 11/14/18 07:30 07:51 Temp 97.6 97.6 Pulse 64 Resp 18 B/P (MAP) 155/83 (107) Pulse Ox 100 100 O2 Delivery Nasal Cannula Nasal Cannula O2 Flow Rate 2.0 2.5 Intake and Output 11/13/18 11/13/18 11/14/18 15:00 23:00 07:00 Intake Total 1170 ml 790 ml 150 ml Output Total 260 ml 150 ml 150 ml Balance 910 ml 640 ml 0 ml TOMAS BAIG MD Nov 14, 2018 10:29
[2018-11-14 11:00] VITALS: BP 128/74
[2018-11-14] MEDS: tiZANidine 4 MG TABLET. PO PRN ×2 (11:25→17:11)
--- NOTE | 2018-11-14 11:42 | PDOC ---
PULMONARY PROGRESS NOTES Subjective no new issues Vitals Vital Signs Date Time Temp Pulse Resp B/P (MAP) Pulse Ox O2 Delivery O2 Flow Rate FiO2 11/14/18 08:00 Room Air 11/14/18 07:51 97.6 64 18 155/83 (107) 100 2.5 97.6 General: Alert, Oriented X4, No acute distress Lungs: Other (decrease bs) Cardiovascular: S1, S2 Abdomen: Soft, Non-tender Neuro Exam: Alert Extremities: Other Skin: Warm Labs Laboratory Tests Test 11/12/18 13:35 11/12/18 15:45 11/12/18 16:46 11/12/18 21:19 Lactic Acid Level 3.9 mmol/L (0.4-2.0) O2 Saturation 95 % (92-99) Arterial Blood pH 7.41 (7.35-7.45) Arterial Blood pCO2 at Patient Temp 40 mmHg (35-46) Arterial Blood pO2 at Patient Temp 84 mmHg (65-108) Arterial Blood HCO3 25 mmol/L (21-28) Arterial Blood Base Excess 1 mmol/L (-3-3) FiO2 28 Glucose (Fingerstick) 291 mg/dL (70-99) 236 mg/dL (70-99) Test 11/13/18 07:35 11/13/18 10:55 11/13/18 17:11 11/13/18 20:10 Glucose (Fingerstick) 134 mg/dL (70-99) 182 mg/dL (70-99) 211 mg/dL (70-99) 151 mg/dL (70-99) Test 11/14/18 07:36 Glucose (Fingerstick) 120 mg/dL (70-99) Laboratory Tests Test 11/13/18 17:11 11/13/18 20:10 11/14/18 07:36 Glucose (Fingerstick) 211 mg/dL (70-99) 151 mg/dL (70-99) 120 mg/dL (70-99) Medications Active Scripts Medications Dose Route/Sig Max Daily Dose Days Date Category Dose Instructions Prednisone 20 Mg Tablet 40 Mg PO DAILY 14 11/11/18 Rx Culturelle (Lactobacillus Rhamnosus Gg) 1 Each Cap.sprink 1 Cap PO BID 30 11/11/18 Rx Colace (Docusate Sodium) 100 Mg Capsule 100 Mg PO DAILY 30 11/11/18 Rx Fluticasone Propionate Nasal [place] (Fluticasone Propionate) 16 Gm [place].susp 2 [place] NS DAILY 30 11/11/18 Rx Tizanidine Hcl 4 Mg Tablet 4 Mg PO TID PRN 11/04/18 Reported Miralax (Polyethylene Glycol 3350) 119 Gm Powder 17 Gm PO BID 11/03/18 Rx Nystatin 100,000 Unit/1 Ml Oral.susp 5 Ml SWSW [id number] 10/31/18 Rx Duoneb 0.5-3(2.5) Mg/3 Ml (Albuterol/Ipratropium) 3 Ml Ampul.neb 3 Ml NEB QID 10/28/18 Rx Tessalon Perle (Benzonatate) 100 Mg Capsule 1 Cap PO TID 10/28/18 Rx Montelukast Sodium Tablet (Montelukast Sodium) 10 Mg Tablet 10 Mg PO QHS 10/28/18 Rx Lidocaine PATCH (Lidocaine) 1 Each Adh..patch 1 Each TP DAILY 30 09/11/18 Rx REMOVE AFTER 12 HOURS Xarelto (Rivaroxaban) 20 Mg Tablet 20 Mg PO DAILY 09/09/18 Reported Metformin Hcl 500 Mg Tablet 500 Mg PO DAILYWBKFT 09/09/18 Reported Humalog (Insulin Lispro) 100 Unit/1 Ml Insuln.pen 0 Units SQ TIDWMEALS 30 08/28/18 Rx Aspirin Ec (Aspirin) 81 Mg Tablet.dr 81 Mg PO DAILYWBKFT 30 08/28/18 Rx Pulmicort (Budesonide) 0.25 Mg/2 Ml Ampul.neb 1 Vial NEB BID 08/25/18 Reported Albuterol Sulfate Neb Soln (Albuterol Sulfate) 2.5 Mg/3 Ml Vial.neb 1 Vial NEB PRN Q2HR PRN 08/25/18 Reported Tramadol Hcl 50 Mg Tablet 50 Mg PO PRN Q6HRS PRN 6 07/12/18 Rx Furosemide 40 Mg Tablet 1 Tab PO DAILY 06/20/18 Reported Guaifenesin 100 Mg/5 Ml Liquid 200 Mg PO PRN Q4HRS PRN 30 05/30/18 Rx Tylenol (Acetaminophen) 325 Mg Tablet 650 Mg PO PRN Q4HRS PRN 10 05/30/18 Rx Ventolin Hfa Inhaler (Albuterol Sulfate) 18 Gm Hfa.aer.ad 2 Puff INH Q4HRS 05/10/18 Rx Vitamin D3 (Cholecalciferol (Vitamin D3)) 5,000 Unit Tablet 5,000 Unit PO DAILY 03/15/18 Reported Reglan (Metoclopramide Hcl) 10 Mg Tablet 0.5 Tab PO QID 30 02/14/18 Rx Potassium Chloride 20 Meq Tablet.er 20 Meq PO DAILY 01/13/18 Reported Protonix (Pantoprazole Sodium) 20 Mg Tablet.dr 1 Tab PO DAILY 11/18/17 Reported Atorvastatin Calcium 10 Mg Tablet 10 Mg PO HS 08/21/17 Reported Symbicort 160-4.5 Mcg Inhaler (Budesonide/Formoterol Fumarate) 10.2 Gm Hfa.aer.ad 2 Puff IH BID 09/21/15 Reported Impression . 1. 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 He has declined to go to skilled care/rehab in the past, but was in the process of going to rehab from his sister's house, but could not make it due to increasing dyspnea, but he is agreeable to go to rehab/skilled facility from this hospitalization. Previously, his ABGs have not qualified him for BiPAP as his pCO2 was within normal limits. repeat ABGs stable again His chest x-ray did not show any new findings. 2. Lactic acidosis from increased work of breathing and unlikely sepsis. Plan . 1. Continue present oxygen. 2. ABGs. does not qualify for BIPAP 3. Taper steroids. 4. Continue bronchodilators. 5. Antibiotics discontinued 6. Discussed with shelter case manager at this point, there is not much we can do in the hospital. He needs support services manager help and social support. At this point, he is agreeable to go to rehab facility and that will be his best option. We will be available for any further recommendations. VIN MEAD MD Nov 14, 2018 11:42
--- NOTE | 2018-11-14 12:29 | NUR ---
No protocol attached to insulin order. Called pharmacy to determine reason and found it is because it was entered without sliding scale protocol from home meds.
--- NOTE | 2018-11-14 13:51 | PDOC3 ---
Discharge Summary Date of Admission: Nov 12, 2018 Date of Discharge: Nov 14, 2018 Follow-Up: 1-2 days Admitting Diagnosis comment: DISCHARGE DX ACUTE ON CHRONIC Respiratory failure. 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 Approximately 40 percent T8 vertebral body height loss is new from 09/08/2018 exam. Correlate for point tenderness in the region. MRI thoracic spine could be obtained for further evaluation if there is concern for acute fracture. PE diagnosis at [place]-started on Xarelto ok to d/c per pulmonary HTN - cont meds Depression NOS-second to medical illness Skin atrophy secondary to chronic steroid use Constipation - cont meds Back pain - T9 fracture previously, this is improved Right conjunctivitis - erythomycin QID Thrush - nystastin swish and swallow sw consult. following with pulm UNDERWEIGHT anemia hgb 6.8 transfused 11/10 hgb now 9.5 patient is not capable of living independently at home and should be at the custodial admitted. IV antibiotics, steroids, TAPER breathing treatments, oxygen. support Consult Pulmonary. Deep venous thrombosis prophylaxis. Full code D/C SNF TODAY 34 MIN PT EXAM D/C PLANNING , CHART REVIEW, > 50% OF TIME SPENT WITH EXAM, CHART REVIEW, PT CARE COORDINATION Vitals Vitals Vital Signs Date Time Temp Pulse Resp B/P (MAP) Pulse Ox O2 Delivery O2 Flow Rate FiO2 11/14/18 07:51 97.6 64 18 155/83 (107) 100 Nasal Cannula 2.5 97.6 Physical Exam Lungs: Other (decrease bs) ALERT NAD Labs LABS FINAL DIAGNOSIS Problems Medical Problems: (1) Anxiety Status: Acute (2) COPD with exacerbation Status: Acute (3) Shortness of breath Status: Acute Brief Hospital Course Mr. Nash is a 58 old [sex] who presented with [ ] CONDITION AT DISCHARGE: Improved Discharge Medications Current Medications Albuterol/ Ipratropium (Duoneb) 3 ml 1X ONCE NEB Last administered on 11/12/18at 11:48; Start 11/12/18 at 11:45; Stop 11/12/18 at 11:46; Status DC Methylprednisolone Sodium Succinate (SOLU-Medrol 125MG VIAL) 125 mg 1X ONCE IV Last administered on 11/12/18at 11:44; Start 11/12/18 at 11:45; Stop 11/12/18 at 11:46; Status DC Ceftriaxone Sodium (Rocephin) 1 gm 1X ONCE IVP Last administered on 11/12/18at 13:14; Start 11/12/18 at 13:00; Stop 11/12/18 at 13:01; Status DC Methylprednisolone Sodium Succinate (SOLU-Medrol 125MG VIAL) 60 mg Q8HRS IV Last administered on 11/14/18at 06:16; Start 11/12/18 at 14:00; Stop 11/14/18 at 11:43; Status DC Albuterol/ Ipratropium (Duoneb) 3 ml RTQID NEB Last administered on 11/14/18at 11:42; Start 11/12/18 at 16:00 Ceftriaxone Sodium (Rocephin) 1 gm Q24H IVP Last administered on 11/13/18at 13:20; Start 11/13/18 at 13:00; Stop 11/13/18 at 16:00; Status DC Insulin Human Lispro (HumaLOG) 0-5 UNITS TIDWMEALS SQ ; Start 11/13/18 at 08:00; Stop 11/12/18 at 19:21; Status DC Dextrose (Dextrose 50%-Water Syringe) 12.5 gm PRN Q15MIN PRN IV SEE COMMENTS; Start 11/12/18 at 18:00 Tramadol HCl (Ultram) 50 mg PRN Q8HRS PRN PO MODERATE PAIN, SEVERE PAIN; Start 11/12/18 at 18:00; Stop 11/12/18 at 19:19; Status DC Acetaminophen (Tylenol) 650 mg PRN Q4HRS PRN PO TEMP OVER 100.4F OR MILD PAIN; Start 11/12/18 at 18:00 Albuterol Sulfate (Ventolin Neb Soln) 2.5 mg PRN Q2HR PRN NEB SHORTNESS OF BREATH; Start 11/12/18 at 17:55 Aspirin (Ecotrin) 81 mg DAILYWBKFT PO Last administered on 11/14/18at 08:37; Start 11/13/18 at 08:00 Atorvastatin Calcium (Lipitor) 10 mg HS PO Last administered on 11/13/18 20:07; Start 11/12/18 at 21:00 Benzonatate (Tessalon Perle) 100 mg TID PO Last administered on 11/14/18 08:37; Start 11/12/18 at 21:00 Docusate Sodium (Colace) 100 mg DAILY PO Last administered on 11/14/18 08:37; Start 11/13/18 at 09:00 Furosemide (Lasix) 40 mg DAILY PO Last administered on 11/14/18 08:37; Start 11/13/18 at 09:00 Guaifenesin (Robitussin) 200 mg PRN Q4HRS PRN PO COUGH Last administered on 11/12/18 21:28; Start 11/12/18 at 19:15 Insulin Human Lispro (HumaLOG) TIDWMEALS SQ ; Start 11/13/18 at 08:00 Albuterol/ Ipratropium (Duoneb) 3 ml RTQID NEB ; Start 11/12/18 at 20:00; Status UNV Lactobacillus Rhamnosus (Culturelle) 1 cap BID PO Last administered on 11/14/18 08:37; Start 11/12/18 at 21:00 Lidocaine (Lidoderm) 1 patch DAILY TP Last administered on 11/13/18 08:11; Start 11/13/18 at 09:00 Metformin HCl (Glucophage) 500 mg DAILYWBKFT PO Last administered on 11/14/18 08:36; Start 11/13/18 at 08:00 Metoclopramide HCl (Reglan) 5 mg QIDACHS PO Last administered on 11/14/18 11:30; Start 11/12/18 at 21:00 Montelukast Sodium (Singulair) 10 mg QHS PO Last administered on 11/13/18 20:08; Start 11/12/18 at 21:00 Nystatin (Nystatin Oral Susp) 5 ml [id number] Last administered on 11/14/18 13:10; Start 11/12/18 at 21:00 Polyethylene Glycol (miraLAX PACKET) 17 gm BID PO Last administered on 11/14/18 08:36; Start 11/12/18 at 21:00 Prednisone (Prednisone) 40 mg DAILY PO ; Start 11/13/18 at 09:00; Status UNV Tizanidine HCl (Zanaflex) 4 mg TID PRN PO MUSCLE SPASMS Last administered on 11/14/18at 11:25; Start 11/12/18 at 19:15 Tramadol HCl (Ultram) 50 mg PRN Q6HRS PRN PO PAIN Last administered on 11/14/18at 08:36; Start 11/12/18 at 19:15 Influenza Virus Vaccine Quadrival (Afluria Quad 2019-20 (3yr Up) Syringe) 0.5 ml ONCE ONCE VAX IM Last administered on 11/13/18at 11:27; Start 11/13/18 at 09:45; Stop 11/13/18 at 09:52; Status DC Methylprednisolone Sodium Succinate (SOLU-Medrol 40MG VIAL) 30 mg Q8HRS IV ; Start 11/14/18 at 14:00 Active Scripts Active Prednisone 20 Mg Tablet 40 Mg PO DAILY 14 Days Culturelle (Lactobacillus Rhamnosus Gg) 1 Each Cap.sprink 1 Cap PO BID 30 Days Colace (Docusate Sodium) 100 Mg Capsule 100 Mg PO DAILY 30 Days Fluticasone Propionate Nasal [place] (Fluticasone Propionate) 16 Gm [place].susp 2 [place] NS DAILY 30 Days Miralax (Polyethylene Glycol 3350) 119 Gm Powder 17 Gm PO BID Nystatin 100,000 Unit/1 Ml Oral.susp 5 Ml SWSW [id number] 5 Days Duoneb 0.5-3(2.5) Mg/3 Ml (Albuterol/Ipratropium) 3 Ml Ampul.neb 3 Ml NEB QID Tessalon Perle (Benzonatate) 100 Mg Capsule 1 Cap PO TID Montelukast Sodium Tablet (Montelukast Sodium) 10 Mg Tablet 10 Mg PO QHS Lidocaine PATCH (Lidocaine) 1 Each Adh..patch 1 Each TP DAILY 30 Days REMOVE AFTER 12 HOURS Humalog (Insulin Lispro) 100 Unit/1 Ml Insuln.pen 0 Units SQ TIDWMEALS 30 Days Aspirin Ec (Aspirin) 81 Mg Tablet.dr 81 Mg PO DAILYWBKFT 30 Days Tramadol Hcl 50 Mg Tablet 50 Mg PO PRN Q6HRS PRN 6 Days Guaifenesin 100 Mg/5 Ml Liquid 200 Mg PO PRN Q4HRS PRN 30 Days Tylenol (Acetaminophen) 325 Mg Tablet 650 Mg PO PRN Q4HRS PRN 10 Days Ventolin Hfa Inhaler (Albuterol Sulfate) 18 Gm Hfa.aer.ad 2 Puff INH Q4HRS Reglan (Metoclopramide Hcl) 10 Mg Tablet 0.5 Tab PO QID 30 Days Reported Tizanidine Hcl 4 Mg Tablet 4 Mg PO TID PRN Xarelto (Rivaroxaban) 20 Mg Tablet 20 Mg PO DAILY Metformin Hcl 500 Mg Tablet 500 Mg PO DAILYWBKFT Pulmicort (Budesonide) 0.25 Mg/2 Ml Ampul.neb 1 Vial NEB BID Albuterol Sulfate Neb Soln (Albuterol Sulfate) 2.5 Mg/3 Ml Vial.neb 1 Vial NEB PRN Q2HR PRN Furosemide 40 Mg Tablet 1 Tab PO DAILY Vitamin D3 (Cholecalciferol (Vitamin D3)) 5,000 Unit Tablet 5,000 Unit PO DAILY Potassium Chloride 20 Meq Tablet.er 20 Meq PO DAILY Protonix (Pantoprazole Sodium) 20 Mg Tablet.dr 1 Tab PO DAILY Atorvastatin Calcium 10 Mg Tablet 10 Mg PO HS Symbicort 160-4.5 Mcg Inhaler (Budesonide/Formoterol Fumarate) 10.2 Gm Hfa.aer. ad 2 Puff IH BID Vital Signs Vital Signs Date Time Temp Pulse Resp B/P (MAP) Pulse Ox O2 Delivery O2 Flow Rate FiO2 11/14/18 11:43 99 Nasal Cannula 2.5 11/14/18 11:00 98.4 88 20 128/74 (92) 98.4 Labs Laboratory Tests Test 11/12/18 15:45 11/12/18 16:46 11/12/18 21:19 11/13/18 07:35 O2 Saturation 95 % (92-99) Arterial Blood pH 7.41 (7.35-7.45) Arterial Blood pCO2 at Patient Temp 40 mmHg (35-46) Arterial Blood pO2 at Patient Temp 84 mmHg (65-108) Arterial Blood HCO3 25 mmol/L (21-28) Arterial Blood Base Excess 1 mmol/L (-3-3) FiO2 28 Glucose (Fingerstick) 291 mg/dL (70-99) 236 mg/dL (70-99) 134 mg/dL (70-99) Test 11/13/18 10:55 11/13/18 17:11 11/13/18 20:10 11/14/18 07:36 Glucose (Fingerstick) 182 mg/dL (70-99) 211 mg/dL (70-99) 151 mg/dL (70-99) 120 mg/dL (70-99) Test 11/14/18 11:13 Glucose (Fingerstick) 151 mg/dL (70-99) Laboratory Tests Test 11/13/18 17:11 11/13/18 20:10 11/14/18 07:36 11/14/18 11:13 Glucose (Fingerstick) 211 mg/dL (70-99) 151 mg/dL (70-99) 120 mg/dL (70-99) 151 mg/dL (70-99) Allergies Allergies Coded Allergies Type Severity Reaction Last Updated Verified No Known Medication Allergies Allergy Unknown 08/26/18 Yes Disposition/Orders: Other (D/C TO SNF) Patient Instructions D/C PLANNING 34 MIN TOMAS BAIG MD Nov 14, 2018 13:51
--- NOTE | 2018-11-14 13:54 | SNU/HH DC ---
DISCHARGE ORDERS DISCHARGE INFORMATION: FINAL DIAGNOSIS Problems Medical Problems: (1) Anxiety Status: Acute (2) COPD with exacerbation Status: Acute (3) Shortness of breath Status: Acute CONDITION ON DISCHARGE: Stable CODE STATUS: Code Status: Full FCI: SNF STAY <30 DAYS: Yes HOSPICE: HOSPICE: No HOSPICE EVAL & TREAT: No LTAC: ADMIT TO LTAC: No POST DISCHARGE ORDERS: ACTIVITY ORDERS: Resume previous activity, Activity as tolerated WEIGHT BEARING STATUS: No restrictions, Full weight bearing, As tolerated DIET AFTER DISCHARGE: ADA WOUND/INCISION CARE: No wound care needed CHECKS AFTER DISCHARGE: CHECKS AFTER DISCHARGE: Check blood press - daily, Check blood sugar, ac/hs TREATMENT/EQUIPMENT ORDERS: ADAPTIVE EQUIPMENT NEEDED: None, Front wheeled walker RESPIRATORY EQUIPMENT NEEDED: Oxygen Physical Therapy For: Evalulation/Treatment Occupational Therapy For: Evaluation/Treatment Speech Language Pathology For: Evaluation/Treatment DISCHARGE MEDICATIONS: Home Meds Active Scripts Prednisone (PREDNISONE) 20 Mg Tablet, 40 MG PO DAILY for copd for 14 Days, #60 TAB Prov:TOMAS BAIG MD 11/11/18 Lactobacillus Rhamnosus Gg (CULTURELLE) 1 Each Cap.sprink, 1 CAP PO BID for supplement for 30 Days, #60 CAP Prov:TOMAS BAIG MD 11/11/18 Docusate Sodium (COLACE) 100 Mg Capsule, 100 MG PO DAILY for prevent constipation for 30 Days, #30 CAP Prov:TOMAS BAIG MD 11/11/18 Fluticasone Propionate (FLUTICASONE PROPIONATE NASAL SPRAY) 16 Gm [place].susp, 2 SPRAY NS DAILY for allergies for 30 Days, #1 SPRAY Prov:TOMAS BAIG MD 11/11/18 Polyethylene Glycol 3350 (MIRALAX) 119 Gm Powder, 17 GM PO BID, #527 GM Prov:SHAYY GRIFFITH MD 11/03/18 Nystatin (NYSTATIN) 100,000 Unit/1 Ml Oral.susp, 5 ML SWSW [id number] for Thrush for 5 Days, #100 MISC Prov:KIRSTIE TREVINO MD 10/31/18 Ipratropium/Albuterol Sulfate (DUONEB 0.5-3(2.5) MG/3 ML) 3 Ml Ampul.neb, 3 ML NEB QID for copd, #120 EACH Prov:RAI DURANT MD 10/28/18 Benzonatate (TESSALON PERLE) 100 Mg Capsule, 1 CAP PO TID for cough, #21 CAP Prov:RAI DURANT MD 10/28/18 Montelukast Sodium (MONTELUKAST SODIUM TABLET ) 10 Mg Tablet, 10 MG PO QHS for copd, #60 TAB Prov:RAI DURANT MD 10/28/18 Lidocaine (Lidocaine PATCH ) 1 Each Adh..patch, 1 EACH TP DAILY for FOR LOCAL PAIN for 30 Days, #30 PATCH REMOVE AFTER 12 HOURS Prov:RAI DURANT MD 09/11/18 Insulin Lispro (HUMALOG) 100 Unit/1 Ml Insuln.pen, 0 UNITS SQ TIDWMEALS for glucose for 30 Days, #1 EACH Prov:TOMAS BAIG MD 08/28/18 Aspirin (ASPIRIN EC) 81 Mg Tablet.dr, 81 MG PO DAILYWBKFT for heart for 30 Days, #30 TAB.SR Prov:TOMAS BAIG MD 08/28/18 Guaifenesin (GUAIFENESIN) 100 Mg/5 Ml Liquid, 200 MG PO PRN Q4HRS PRN for COUGH for 30 Days, #120 LIQUID Prov:TOMAS BAIG MD 05/30/18 Acetaminophen (TYLENOL) 325 Mg Tablet, 650 MG PO PRN Q4HRS PRN for TEMP OVER 100.4F OR MILD PAIN for 10 Days, #30 TAB Prov:TOMAS BAIG MD 05/30/18 Albuterol Sulfate (VENTOLIN HFA INHALER) 18 Gm Hfa.aer.ad, 2 PUFF INH Q4HRS for FOR ASTHMA, #1 INHALER 0 Refills Prov:SD JNO APRN 05/10/18 Metoclopramide Hcl (REGLAN) 10 Mg Tablet, 0.5 TAB PO QID for gerd for 30 Days, #60 TAB Prov:TOMAS BAIG MD 02/14/18 Reported Medications Tizanidine Hcl (TIZANIDINE HCL) 4 Mg Tablet, 4 MG PO TID PRN for MUSCLE SPASMS, TAB 11/04/18 Metformin Hcl (METFORMIN HCL) 500 Mg Tablet, 500 MG PO DAILYWBKFT for ANTI- DIABETIC, TAB 0 Refills 09/09/18 Budesonide (PULMICORT) 0.25 Mg/2 Ml Ampul.neb, 1 VIAL NEB BID for SHORT OF BREATH, #30 VIAL 08/25/18 Albuterol Sulfate (ALBUTEROL SULFATE NEB SOLN) 2.5 Mg/3 Ml Vial.neb, 1 VIAL NEB PRN Q2HR PRN for SEDATION, #50 VIAL 08/25/18 Furosemide (FUROSEMIDE) 40 Mg Tablet, 1 TAB PO DAILY for water, #30 TAB 5 Refills 06/20/18 Cholecalciferol (Vitamin D3) (VITAMIN D3) 5,000 Unit Tablet, 5000 UNIT PO DAILY for supplement, TAB 03/15/18 Potassium Chloride (POTASSIUM CHLORIDE) 20 Meq Tablet.er, 20 MEQ PO DAILY for supplement, TAB.SR 01/13/18 Pantoprazole Sodium (PROTONIX) 20 Mg Tablet.dr, 1 TAB PO DAILY, #30 TAB 11/18/17 Atorvastatin Calcium (ATORVASTATIN CALCIUM) 10 Mg Tablet, 10 MG PO HS for FOR CHOLESTEROL, #30 TAB 0 Refills 08/21/17 Budesonide/Formoterol Fumarate (SYMBICORT 160-4.5 MCG INHALER) 10.2 Gm Hfa.aer.ad, 2 PUFF IH BID, #10.6 GM 3 Refills 09/21/15 Discontinued Reported Medications Rivaroxaban (XARELTO) 20 Mg Tablet, 20 MG PO DAILY for stroke prevention, TAB 09/09/18 Oxycodone/Apap 5-325 (PERCOCET 5-325 MG TABLET ) 1 Each Tablet, 1 TAB PO PRN Q6HRS PRN for PAIN, TAB 0 Refills 11/04/18 Discontinued Scripts Tramadol Hcl (TRAMADOL HCL) 50 Mg Tablet, 50 MG PO PRN Q6HRS PRN for PAIN for 6 Days, #24 TAB Prov:KIRSTIE TREVINO MD 07/12/18 Prednisone (PREDNISONE ) 10 Mg Tablet, 10 MG PO DAILY for copd for 5 Days, #5 TAB Prov:KIRSTIE TREVINO MD 10/31/18 Lorazepam (ATIVAN) 1 Mg Tablet, 1 MG PO PRN BID PRN for ANXIETY / AGITATION, #30 TAB Prov:RAI DURANT MD 09/11/18 Cyclobenzaprine Hcl (CYCLOBENZAPRINE HCL) 5 Mg Tablet, 5 MG PO PRN TID PRN for PAIN, #15 TAB Prov:TEVIN GOODWIN MD 08/20/18 TOMAS BAIG MD Nov 14, 2018 13:54
--- NOTE | 2018-11-14 13:54 | NUR ---
SW following pt. Pt has been accepted at [facility] in [place]. Pt has met with Deborah from [facility] and agreeable to go there today. SW encouraged pt to think about staying at facility permanently after SNF. Pt has already have three midnights on previous admission. Physician notified for orders.
[2018-11-14] MEDS ORDERED: methylPREDNISolone SOD SUCC PF 40 MG/ML VIAL. IV SCH (14:00)
[2018-11-14 14:56] VITALS: BP 115/73
--- NOTE | 2018-11-14 15:00 | NUR ---
SW following pt. SW phoned and faxed orders to [facility]. Pt will transport via facility arranged w/c van at 1600. RN notified. Pt agreeable with plans.
--- NOTE | 2018-11-14 16:29 | NUR ---
Dr Mccormick notified about blood cultures to make sure he didn't want patient to discharge on antibiotics. No orders received.
--- NOTE | 2018-11-14 17:24 | NUR ---
taken to skilled facility van via wheelchair with all personal belongings including all home meds to be discharged to [facility] skilled facility. Report already called to Reji MAURO
[2018-12-20] MEDS ORDERED: LORA-434 PO (02:55)
[2018-12-20] MEDS ORDERED: FERR325T14 PO (02:55)
[2018-12-20] MEDS ORDERED: PRED-220 PO (03:11)
[2018-12-20] MEDS ORDERED: TRAM50TA PO (08:04)
[2018-12-20] MEDS ORDERED: HYDR-2769 PO (08:04)
[2018-12-22] MEDS ORDERED: HYDR-2769 PO (08:30)
[2018-12-25] MEDS ORDERED: HYDR-2769 PO (12:45)
== END 2018-11-14 17:25 | DRG 189 ==
LOC: ER 10:56 → 2 SOUTH 11:41 → 6 SOUTH 13:29
PROVIDERS: ADMIT Internal Medicine; ATTEND Internal Medicine
DX: J96.20 Acute and chronic respiratory failure, unspecified whether with hypoxia or hypercapnia (principal); E87.2 Acidosis; J43.9 Emphysema, unspecified; M81.0 Age-related osteoporosis without current pathological fracture; F41.9 Anxiety disorder, unspecified; I50.9 Heart failure, unspecified; I11.0 Hypertensive heart disease with heart failure; F32.9 Major depressive disorder, single episode, unspecified; K59.00 Constipation, unspecified; B37.9 Candidiasis, unspecified; D64.9 Anemia, unspecified; I27.20 Pulmonary hypertension, unspecified; H10.9 Unspecified conjunctivitis; T38.0X5A Adverse effect of glucocorticoids and synthetic analogues, initial encounter; Y92.89 Other specified places as the place of occurrence of the external cause; Z79.52 Long term (current) use of systemic steroids; Z86.711 Personal history of pulmonary embolism; Z87.891 Personal history of nicotine dependence; Z82.49 Family history of ischemic heart disease and other diseases of the circulatory system; R63.6 Underweight; Z68.21 Body mass index [BMI] 21.0-21.9, adult
CPT/HCPCS: 36415; 36600; 71045; 80053; 82550; 82805; 82962; 83605; 83880; 84484; 85007; 85025; 87040; 87077; 87205; 90471; 90686; 93005; 94640; 94760; 96374; 96375; J0696; J1815; J2930; J7620; J8597; 97110; 99285-25; G0378

== ENCOUNTER 2019-01-03 17:49 | Emergency (ER) | payer MEDICARE, MEDICAID ==
[~2019-01-03] VITALS: Ht 165.1 cm; Wt 70.3 kg
[~2019-01-03 17:49] MED LIST changes: +FERR325T14 PO; +HYDR-2769 PO; +SODI44SP NS
--- NOTE | 2019-01-03 18:11 | PHYS DOC ---
Past Medical History Past Medical History: Anxiety, Bronchitis, CHF, COPD Additional Past Medical Histor: EMPHYSEMA, OSTEOPOROSIS Past Surgical History: No Surgical History Additional Past Surgical Histo: HERNIA REPAIR Alcohol Use: None Drug Use: None Adult General Chief Complaint Chief Complaint: CHEST PAIN HPI HPI 58-year-old male presents to the emergency department with complaints of chest pain. Patient's underlying history of hypertension, COPD, chronic respiratory f ailure. Patient describes the pain center aspect of his chest with radiation his back describes his ongoing all day. Pain is described as achy, sharp sensation. Positive shortness of breath however patient with chronic respiratory failure. He denies any nausea, vomiting, diarrhea, diaphoresis. States that coughing makes his pain worse. Review of Systems Review of Systems Constitutional: Denies fever or chills [] HENT: Denies nasal congestion or sore throat [] Respiratory: + cough/SOB Cardiovascular: No additional information not addressed in HPI [] GI: Denies abdominal pain, nausea, vomiting, bloody stools or diarrhea [] : Denies dysuria or hematuria [] Musculoskeletal: back pain Neurologic: Denies headache, focal weakness or sensory changes [] All other systems were reviewed and found to be within normal limits, except as documented in this note. Current Medications Current Medications Current Medications Medications (Trade) Dose Ordered Sig/Candy Start Time Stop Time Status Last Admin Dose Admin Albuterol/ Ipratropium (Duoneb) 3 ml 1X ONCE 01/03/19 18:15 01/03/19 18:16 DC 01/03/19 18:15 3 ML Aspirin (Children'S Aspirin) 324 mg 1X ONCE 01/03/19 18:15 01/03/19 18:16 DC 01/03/19 18:23 324 MG Ketorolac Tromethamine (Toradol 30mg Vial) 30 mg 1X ONCE 01/03/19 19:00 01/03/19 19:01 DC 01/03/19 19:27 30 MG Nitroglycerin (Nitrostat) 0.4 mg PRN Q5MIN PRN 01/03/19 18:15 01/04/19 18:14 01/03/19 18:24 0.4 MG Allergies Allergies Allergies Coded Allergies Type Severity Reaction Last Updated Verified No Known Medication Allergies Allergy Unknown 08/26/18 Yes Physical Exam Physical Exam Constitutional: Well developed, well nourished, no acute distress, non-toxic appearance. [] HENT: Normocephalic, atraumatic, bilateral external ears normal, oropharynx moist, no oral exudates, nose normal. [] Eyes: PERRLA, EOMI, conjunctiva normal, no discharge. [] Cardiovascular: tachycardia Lungs & Thorax: decreased BS bilaterally, minimal wheeze Abdomen: Bowel sounds normal, soft, no tenderness, no masses, no pulsatile masses. [] Skin: Warm, dry, no erythema, no rash. [] Back: No tenderness, no CVA tenderness. [] Extremities: No tenderness, no edema. [] Neurologic: Alert and oriented X 3, no focal deficits noted. [] Psychologic: Affect normal, judgement normal, mood normal. [] Current Patient Data Vital Signs Vital Signs Date Time Temp Pulse Resp B/P (MAP) Pulse Ox O2 Delivery O2 Flow Rate FiO2 01/03/19 19:29 88 19 111/63 (79) 98 Nasal Cannula 3.0 01/03/19 17:50 98.7 98.7 Lab Values Laboratory Tests Test 01/03/19 18:20 White Blood Count 8.9 x10^3/uL (4.0-11.0) Red Blood Count 4.29 x10^6/uL (4.30-5.70) L Hemoglobin 11.3 g/dL (13.0-17.5) L Hematocrit 35.5 % (39.0-53.0) L Mean Corpuscular Volume 83 fL (79-100) Mean Corpuscular Hemoglobin 26 pg (25-35) Mean Corpuscular Hemoglobin Concent 32 g/dL (31-37) Red Cell Distribution Width 26.3 % (11.5-14.5) H Platelet Count 206 x10^3/uL (140-400) Neutrophils (%) (Auto) 92 % (31-73) H Lymphocytes (%) (Auto) 3 % (24-48) L Monocytes (%) (Auto) 4 % (0-9) Eosinophils (%) (Auto) 0 % (0-3) Basophils (%) (Auto) 1 % (0-3) Neutrophils # (Auto) 8.3 x10^3/uL (1.8-7.7) H Lymphocytes # (Auto) 0.3 x10^3/uL (1.0-4.8) L Monocytes # (Auto) 0.3 x10^3/uL (0.0-1.1) Eosinophils # (Auto) 0.0 x10^3/uL (0.0-0.7) Basophils # (Auto) 0.0 x10^3/uL (0.0-0.2) Segmented Neutrophils % 93 % (35-66) H Lymphocytes % 3 % (24-48) L Monocytes % 4 % (0-10) Platelet Estimate Adequate (ADEQUATE) Poikilocytosis Slight Anisocytosis Mod Ovalocytes Few Sodium Level 140 mmol/L (136-145) Potassium Level 4.0 mmol/L (3.5-5.1) Chloride Level 98 mmol/L (98-107) Carbon Dioxide Level 35 mmol/L (21-32) H Anion Gap 7 (6-14) Blood Urea Nitrogen 13 mg/dL (8-26) Creatinine 1.0 mg/dL (0.7-1.3) Estimated GFR (Cockcroft-Gault) 92.5 BUN/Creatinine Ratio 13 (6-20) Glucose Level 156 mg/dL (70-99) H Calcium Level 9.2 mg/dL (8.5-10.1) Magnesium Level 1.8 mg/dL (1.8-2.4) Total Bilirubin 0.6 mg/dL (0.2-1.0) Aspartate Amino Transferase (AST) 15 U/L (15-37) Alanine Aminotransferase (ALT) 20 U/L (16-63) Alkaline Phosphatase 112 U/L (46-116) Troponin I Quantitative < 0.017 ng/mL (0.000-0.055) BJ-Yzl-J-Type Natriuretic Peptide 44 pg/mL (0-124) Total Protein 7.4 g/dL (6.4-8.2) Albumin 3.5 g/dL (3.4-5.0) Albumin/Globulin Ratio 0.9 (1.0-1.7) L Laboratory Tests 01/03/19 18:20 Laboratory Tests 01/03/19 18:20 EKG EKG EKG reviewed, sinus tachycardia, no evidence of acute ST elevation DE appreciated, normal axis, interpretation time 1801[] Radiology/Procedures Radiology/Procedures EKG interpretation of x-ray reveals no evidence of acute cardiopulmonary process. This was compared to previous evaluations.[] Course & Med Decision Making Course & Med Decision Making Pertinent Labs and Imaging studies reviewed. (See chart for details) []58-year-old male presents to the emergency department with complaints of chest pain. Patient's underlying history of hypertension, COPD, chronic respiratory failure. Patient describes the pain center aspect of his chest with radiation his back describes his ongoing all day. Pain is described as achy, sharp s ensation. Positive shortness of breath however patient with chronic respiratory failure. He denies any nausea, vomiting, diarrhea, diaphoresis. States that coughing makes his pain worse. Reviewed white blood cell count 8.9, hemoglobin 11.3, metabolic profile unremarkable, BNP 44, troponin 0.017 within normal limits, repeat troponin within normal limits. X-ray reviewed without evidence of acute process compared to old. No acute consolidation or pleural effusion. Patient received Toradol for his pain. At this time given patient's normal labs, no evidence of acute pulmonary process no evidence of COPD exacerbation we'll plan for discharge at this time. Discussed return precautions with patient. Todd Disclaimer Todd Disclaimer This electronic medical record was generated, in whole or in part, using a voice recognition dictation system. Departure Departure Impression: Primary Impression: Chest wall pain Additional Impression: COPD without exacerbation Disposition: 01 HOME, SELF-CARE Condition: IMPROVED Referrals: UNKNOWN PCP NAME (PCP) Patient Instructions: Chest Pain (Nonspecific), Bcit-ot-Eglv, Chest Pain Observation Additional Instructions: Recommend follow up with PCP 3 - 5 days Return to the ER with worsening symptoms, intractable pain, fever, altered mental status Tylenol/Motrin as needed for pain Problem Qualifiers SWATHI RAM MD Jan 03, 2019 18:10
[2019-01-03] MEDS ORDERED: IPRATRPIUM/ALBUTEROL 0.5/2.5MG 3 ML NEBU. NEB ONE (18:15)
[2019-01-03] MEDS ORDERED: ASPIRIN CHEWABLE 81 MG TABLET. PO ONE (18:15)
[2019-01-03] MEDS ORDERED: NITROGLYCERIN SUBLINGUAL 0.4 MG BOTTLE OF 25. SL PRN (18:15)
[2019-01-03 18:28] LABS: BASO % 1 % (0-3); EOS % 0 % (0-3); HEMATOCRIT 35.5 % (39.0-53.0); HEMOGLOBIN 11.3 g/dL (13.0-17.5); LYMPH # 0.3 x10^3/uL (1.0-4.8); LYMPH % 3 % (24-48); MEAN CORPUSCULAR HEMOGLOBIN 26 pg (25-35); MEAN CORPUSCULAR HGB CONC 32 g/dL (31-37); MEAN CORPUSCULAR VOLUME 83 fL (79-100); MONO # 0.3 x10^3/uL (0.0-1.1); MONO % 4 % (0-9); NEUT # 8.3 x10^3/uL (1.8-7.7); NEUT % 92 % (31-73); PLATELET COUNT 206 x10^3/uL (140-400); RED BLOOD COUNT 4.29 x10^6/uL (4.30-5.70); RED CELL DISTRIBUTION WIDTH 26.3 % (11.5-14.5); WHITE BLOOD COUNT 8.9 x10^3/uL (4.0-11.0)
[2019-01-03 18:39] LABS: CALCIUM 9.2 mg/dL (8.5-10.1); GFR 92.5
[2019-01-03 18:45] LABS: ALBUMIN 3.5 g/dL (3.4-5.0); ALBUMIN/GLOBULIN RATIO 0.9 (1.0-1.7); MAGNESIUM 1.8 mg/dL (1.8-2.4); TOTAL BILIRUBIN 0.6 mg/dL (0.2-1.0); TOTAL PROTEIN 7.4 g/dL (6.4-8.2)
[2019-01-03] MEDS ORDERED: KETOROLAC 30 MG/ML VIAL. IV ONE (19:00)
[2019-01-03 19:01] LABS: % LYMPHS 3 % (24-48); % MONOS 4 % (0-10); % SEGS 93 % (35-66); PLT ESTIMATE ADEQUATE (ADEQUATE)
[2019-01-03 19:02] LABS: ANISOCYTOSIS MOD; OVALOCYTES FEW; POIKILOCYTOSIS SLIGHT
[2019-01-03 19:29] VITALS: BP 111/63
--- NOTE | 2019-01-03 23:29 | RAD ---
Indication: Chest pain TECHNIQUE:Portable AP chest X-ray COMPARISON: 12/27/2018 FINDINGS: Heart is normal in size. Hyperlucent left lung. Mild interstitial opacities are seen in the bilateral lung bases. No pneumothorax or pleural effusion. Visualized bony thorax within normal limits. IMPRESSION: Extensive emphysema in the left lung. Superimposed atypical/viral infection not ruled out. Electronically signed by: Luke Yoo DO (01/03/2019 11:26 PM) [facility]
--- NOTE | 2019-01-05 06:40 | EKG ---
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
[2019-01-09] MEDS ORDERED: FURO-68 PO (23:20)
[2019-01-09] MEDS ORDERED: FERR325T72 PO (23:20)
[2019-01-09] MEDS ORDERED: TRAM50TA PO (23:20)
== END 2019-01-03 21:17 | disposition home or self-care (01) ==
LOC: ER 17:49
DX: R07.89 Other chest pain (principal); J44.9 Chronic obstructive pulmonary disease, unspecified; I10 Essential (primary) hypertension; Z86.79 Personal history of other diseases of the circulatory system; Z87.09 Personal history of other diseases of the respiratory system
CPT/HCPCS: 36415; 71045; 80053; 83735; 83880; 84484; 85007; 85025; 93005; 94640; 96374; 99285; J1885; J7620

== ENCOUNTER 2019-01-07 01:11 | Emergency (ER) | payer MEDICARE, MEDICAID ==
[~2019-01-07] VITALS: Ht 180.3 cm; Wt 66.2 kg
[2019-01-07] MEDS ORDERED: IPRATRPIUM/ALBUTEROL 0.5/2.5MG 3 ML NEBU. NEB ONE (02:00)
[2019-01-07] MEDS ORDERED: LORazepam 0.5 MG TABLET PO ONE (02:00)
[2019-01-07 02:19] VITALS: BP 128/81
[2019-01-07] MEDS ORDERED: HYDROcodone/APAP 5/325MG 1 TAB TABLET PO ONE (02:30)
--- NOTE | 2019-01-07 04:21 | PHYS DOC ---
Past Medical History Past Medical History: Anxiety, Bronchitis, CHF, COPD Additional Past Medical Histor: EMPHYSEMA, OSTEOPOROSIS Past Surgical History: No Surgical History Additional Past Surgical Histo: HERNIA REPAIR Alcohol Use: None Drug Use: None Adult General Chief Complaint Chief Complaint: SHORTNESS OF BREATH HPI HPI Patient is a 58 year old m p/w sob anxiety chest discomfort he was at [facility] earlier today his card sorter told him to go to er for sat eighty six on three liters usually hes in the low nineties. he said they did xrays and gave him breathing treatemnt and fifty of prednisone and a shot of morphine and everything looked ok. he still wasnt feeling well but they sent him home in a taxi. he bruoght the taxi here to [place]. pain similar to every other visit left side moves to back sharp worse with palpation and deep breathing he is supposed to be staying with his brother but he doesnt know for sure if he will be able to wake him up no fever pos cough wtih sputum production Review of Systems Review of Systems Constitutional: Eyes: Denies change in visual acuity, redness, or eye pain [] Cardiovascular: No additional information not addressed in HPI [] Musculoskeleta Integument: Denies rash or skin lesions [] Neurologic: Denies headache, focal weakness or sensory changes [] Endocrine: Denies polyuria or polydipsia [] All other systems were reviewed and found to be within normal limits, except as documented in this note. Current Medications Current Medications Current Medications Medications (Trade) Dose Ordered Sig/Candy Start Time Stop Time Status Last Admin Dose Admin Acetaminophen/ Hydrocodone Bitart (Lortab 5/325) 1 tab 1X ONCE 01/07/19 02:30 01/07/19 02:31 DC 01/07/19 02:35 1 TAB Albuterol/ Ipratropium (Duoneb) 3 ml 1X ONCE 01/07/19 02:00 01/07/19 02:01 DC 01/07/19 01:55 3 ML Lorazepam (Ativan) 2 mg 1X ONCE 01/07/19 02:00 01/07/19 02:01 DC 01/07/19 01:48 2 MG Allergies Allergies Allergies Coded Allergies Type Severity Reaction Last Updated Verified No Known Medication Allergies Allergy Unknown 08/26/18 Yes Physical Exam Physical Exam Constitutional: Well developed, well nourished, chronically ill appearing HENT: Normocephalic, atraumatic, bilateral external ears normal, oropharynx moist, no oral exudates, nose normal. [] Eyes: PERRLA, EOMI, conjunctiva normal, no discharge. [] Neck: Normal range of motion, no tenderness, supple, no stridor. [] Cardiovascular:mild tachy, typical for him Lungs & Thorax: scattered wheeze. speaking full sentences, actually appears less dyspneic than baseline imo Abdomen: Bowel sounds normal, soft, no tenderness, no masses, no pulsatile masses. [] Skin: dry scaly skin Back: No tenderness, no CVA tenderness. [] Extremities: arthritic changes noted wrist/hands likely from steroid use Neurologic: Alert and oriented X 3, normal motor function, normal sensory function, no focal deficits noted. [] Psychologic:anxiety Current Patient Data Vital Signs Vital Signs Date Time Temp Pulse Resp B/P (MAP) Pulse Ox O2 Delivery O2 Flow Rate FiO2 01/07/19 02:35 99 01/07/19 02:19 115 128/81 (97) Nasal Cannula 3.0 01/07/19 01:14 98.2 21 98.2 Lab Values hr one oh 6 on my evaluation EKG EKG [] Radiology/Procedures Radiology/Procedures [] Course & Med Decision Making Course & Med Decision Making Pertinent Labs and Imaging studies reviewed. (See chart for details) []cxr my read similar large bullae to prior no definite pna awiting final read pt was much better in the er after neb and ativan and will be discharged in stable condition i dont think he is far from his usual baseline Dragon Disclaimer Dragon Disclaimer This electronic medical record was generated, in whole or in part, using a voice recognition dictation system. Departure Departure Impression: Primary Impression: COPD (chronic obstructive pulmonary disease) Disposition: HOME, SELF-CARE Condition: STABLE Referrals: UNKNOWN PCP NAME (PCP) Patient Instructions: Chronic Obstructive Pulmonary Disease Exacerbation TEVIN GOODWIN MD Jan 07, 2019 04:21
--- NOTE | 2019-01-07 06:27 | RAD ---
INDICATION: Infectious symptoms of the lung COMPARISON: January 03, 2019 FINDINGS: Single view of chest obtained. Extensive emphysematous changes the left lung with hyperlucency. There are some disorganized pulmonary markings with mild interstitial opacities predominantly within the right lung with some of the left lung base as well. Cardiac silhouette is near the upper limits of normal in size with some deviation to the right again seen. Could be secondary to hyperexpansion of the left lung with resultant mass effect. IMPRESSION: * Extensive lucency throughout the left lung which could be secondary to emphysematous changes. There is again mediastinal shift to the right which could be secondary to mass effect from the severe emphysematous changes * There is some interstitial opacities within the right lung as well as left lung base. Could be chronic in nature given that this has a similar appearance as on prior but if the patient is having infectious symptoms superimposed bronchitis or pneumonia is possible. Electronically signed by: Matthew Agee MD (01/07/2019 6:23 AM) [facility]
[2019-01-09] MEDS ORDERED: FERR325T72 PO (23:20)
[2019-01-09] MEDS ORDERED: TRAM50TA PO (23:20)
[2019-01-09] MEDS ORDERED: FURO-68 PO (23:20)
== END 2019-01-07 02:45 | disposition home or self-care (01) ==
LOC: ER 01:11
DX: J44.9 Chronic obstructive pulmonary disease, unspecified (principal); F41.9 Anxiety disorder, unspecified; I50.9 Heart failure, unspecified
CPT/HCPCS: 94640; 99284; J7620; 71045

== ENCOUNTER 2019-01-17 09:08 | Emergency (ER) | payer MEDICARE, MEDICAID ==
[~2019-01-17] VITALS: Ht 180.3 cm; Wt 68.0 kg
[~2019-01-17 09:08] MED LIST changes: +FERR325T72 PO; +FURO-68 PO; +POTA20TA4 PO; -POTA20TA82 PO
[2019-01-17] MEDS ORDERED: IPRATRPIUM/ALBUTEROL 0.5/2.5MG 3 ML NEBU. NEB ONE (09:30)
[2019-01-17] MEDS ORDERED: methylPREDNISolone SOD SUCC PF 125 MG/2 ML VIAL. IV ONE (09:30)
--- NOTE | 2019-01-17 09:32 | EKG ---
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
--- NOTE | 2019-01-17 09:39 | RAD ---
PORTABLE CHEST 1V Clinical indications: Shortness of air COMPARISON: January 09, 2019. Findings: Bullous emphysema of the left upper lobe is again seen. Compression of bronchovascular markings is seen within the left lower lung zone as a result. This is stable. There is chronic interstitial lung infiltrates within the right lower lung zone which is stable. No new lung infiltrate or pleural effusion is seen. No pneumothorax is evident. The heart size and mediastinum are stable. Healed right eighth rib fracture is evident. IMPRESSION: No new radiographic abnormality. Electronically signed by: Fransico Lindsey MD (01/17/2019 9:36 AM) [facility]
[2019-01-17 10:23] LABS: BILIRUBIN,URINE NEGATIVE (NEG); CLARITY,URINE CLEAR; COLOR,URINE YELLOW; NITRITE,URINE NEGATIVE (NEG); PH,URINE 7.5; PROTEIN,URINE NEGATIVE (NEG-TRACE); UROBILINOGEN,URINE 0.2 mg/dL (0.2 mg/dL)
[2019-01-17 10:47] LABS: BACTERIA,URINE 0 /HPF (0-FEW); RBC,URINE 0 /HPF (0-2); SQUAMOUS EPITHELIAL CELL,UR OCC /LPF; WBC,URINE 0 /HPF (0-4)
[2019-01-17 10:47] LABS: BASO % 0 % (0-3); EOS % 0 % (0-3); HEMOGLOBIN 11.7 g/dL (13.0-17.5); LYMPH # 0.3 x10^3/uL (1.0-4.8); LYMPH % 3 % (24-48); MEAN CORPUSCULAR HEMOGLOBIN 27 pg (25-35); MEAN CORPUSCULAR HGB CONC 32 g/dL (31-37); MEAN CORPUSCULAR VOLUME 85 fL (79-100); MONO # 0.2 x10^3/uL (0.0-1.1); MONO % 2 % (0-9); NEUT # 10.8 x10^3/uL (1.8-7.7); NEUT % 95 % (31-73); PLATELET COUNT 223 x10^3/uL (140-400); RED BLOOD COUNT 4.34 x10^6/uL (4.30-5.70); RED CELL DISTRIBUTION WIDTH 24.6 % (11.5-14.5); WHITE BLOOD COUNT 11.3 x10^3/uL (4.0-11.0)
[2019-01-17 10:53] LABS: CALCIUM 9.8 mg/dL (8.5-10.1); CREATININE 0.9 mg/dL (0.7-1.3); GFR 104.5; POTASSIUM 4.5 mmol/L (3.5-5.1)
[2019-01-17 10:58] LABS: ALBUMIN 3.8 g/dL (3.4-5.0); MAGNESIUM 2.1 mg/dL (1.8-2.4); TOTAL BILIRUBIN 0.5 mg/dL (0.2-1.0); TOTAL PROTEIN 7.5 g/dL (6.4-8.2)
--- NOTE | 2019-01-17 11:09 | PHYS DOC ---
Past Medical History Past Medical History: Anxiety, Bronchitis, CHF, COPD, Other Additional Past Medical Histor: EMPHYSEMA, OSTEOPOROSIS Past Surgical History: No Surgical History Additional Past Surgical Histo: HERNIA REPAIR Alcohol Use: None Drug Use: None Adult General Chief Complaint Chief Complaint: SHORTNESS OF BREATH [facility] HPI Patient is a 58 year old male who was brought here by EMS for evaluation of trouble breathing since this morning. Patient has history of COPD, he is smoker, he is on 3 L of oxygen at home. Patient denies any cough, no fever, no chest pain. Patient had been evaluated here recently numerous time for COPD exacerbation. Patient was admitted here recently for sepsis, discharged home on January 13. Patient denies any abdominal pain, no nausea vomiting. aLL OTHER ros IS NEGATIVE UNLESS OTHERWISE NOTED IN hpi Review of Systems Review of Systems See above Current Medications Current Medications Current Medications Medications (Trade) Dose Ordered Sig/Candy Start Time Stop Time Status Last Admin Dose Admin Albuterol/ Ipratropium (Duoneb) 3 ml 1X ONCE 01/17/19 09:30 01/17/19 09:31 DC 01/17/19 09:28 3 ML Methylprednisolone Sodium Succinate (SOLU-Medrol 125MG VIAL) 125 mg 1X ONCE 01/17/19 09:30 01/17/19 09:31 DC 01/17/19 10:01 125 MG Allergies Allergies Allergies Coded Allergies Type Severity Reaction Last Updated Verified No Known Medication Allergies Allergy Unknown 08/26/18 Yes Physical Exam Physical Exam See above Constitutional: Well developed, well nourished, no acute distress, non-toxic a ppearance. [] HENT: Normocephalic, atraumatic, bilateral external ears normal, oropharynx moist, no oral exudates, nose normal. [] Eyes: PERRLA, EOMI, conjunctiva normal, no discharge. [] Neck: Normal range of motion, no tenderness, supple, no stridor. [] Cardiovascular:Heart rate regular rhythm, no murmur [] Lungs & Thorax: Bilateral breath sounds WITH EXPIRATORY WHEEZING. Abdomen: Bowel sounds normal, soft, no tenderness, no masses, no pulsatile masses. [] Skin: Warm, dry, no erythema, no rash. [] Back: No tenderness, no CVA tenderness. [] Extremities: No tenderness, no cyanosis, no clubbing, ROM intact, no edema. [] Neurologic: Alert and oriented X 3, normal motor function, normal sensory function, no focal deficits noted. [] Psychologic: Affect normal, judgement normal, mood normal. [] Current Patient Data Vital Signs Vital Signs Date Time Temp Pulse Resp B/P (MAP) Pulse Ox O2 Delivery O2 Flow Rate FiO2 01/17/19 12:21 96 113/78 (90) 96 Nasal Cannula 3.0 01/17/19 11:51 19 01/17/19 09:08 98.4 98.4 Lab Values Laboratory Tests Test 01/17/19 10:00 01/17/19 10:25 Urine Collection Type Unknown Urine Color Yellow Urine Clarity Clear Urine pH 7.5 Urine Specific [place] 1.010 Urine Protein Negative mg/dL (NEG-TRACE) Urine Glucose (UA) Negative mg/dL (NEG) Urine Ketones (Stick) Negative mg/dL (NEG) Urine Blood Negative (NEG) Urine Nitrite Negative (NEG) Urine Bilirubin Negative (NEG) Urine Urobilinogen Dipstick 0.2 mg/dL (0.2 mg/dL) Urine Leukocyte Esterase Negative (NEG) Urine RBC 0 /HPF (0-2) Urine WBC 0 /HPF (0-4) Urine Squamous Epithelial Cells Occ /LPF Urine Bacteria 0 /HPF (0-FEW) White Blood Count 11.3 x10^3/uL (4.0-11.0) H Red Blood Count 4.34 x10^6/uL (4.30-5.70) Hemoglobin 11.7 g/dL (13.0-17.5) L Hematocrit 37.0 % (39.0-53.0) L Mean Corpuscular Volume 85 fL (79-100) Mean Corpuscular Hemoglobin 27 pg (25-35) Mean Corpuscular Hemoglobin Concent 32 g/dL (31-37) Red Cell Distribution Width 24.6 % (11.5-14.5) H Platelet Count 223 x10^3/uL (140-400) Neutrophils (%) (Auto) 95 % (31-73) H Lymphocytes (%) (Auto) 3 % (24-48) L Monocytes (%) (Auto) 2 % (0-9) Eosinophils (%) (Auto) 0 % (0-3) Basophils (%) (Auto) 0 % (0-3) Neutrophils # (Auto) 10.8 x10^3/uL (1.8-7.7) H Lymphocytes # (Auto) 0.3 x10^3/uL (1.0-4.8) L Monocytes # (Auto) 0.2 x10^3/uL (0.0-1.1) Eosinophils # (Auto) 0.0 x10^3/uL (0.0-0.7) Basophils # (Auto) 0.0 x10^3/uL (0.0-0.2) Platelet Estimate Pending Prothrombin Time 11.9 SEC (11.7-14.0) Prothrombin Time INR 0.9 (0.8-1.1) Activated Partial Thromboplast Time 24 SEC (24-38) Sodium Level 136 mmol/L (136-145) Potassium Level 4.5 mmol/L (3.5-5.1) Chloride Level 94 mmol/L (98-107) L Carbon Dioxide Level 33 mmol/L (21-32) H Anion Gap 9 (6-14) Blood Urea Nitrogen 14 mg/dL (8-26) Creatinine 0.9 mg/dL (0.7-1.3) Estimated GFR (Cockcroft-Gault) 104.5 BUN/Creatinine Ratio 16 (6-20) Glucose Level 143 mg/dL (70-99) H Calcium Level 9.8 mg/dL (8.5-10.1) Magnesium Level 2.1 mg/dL (1.8-2.4) Total Bilirubin 0.5 mg/dL (0.2-1.0) Aspartate Amino Transferase (AST) 21 U/L (15-37) Alanine Aminotransferase (ALT) 20 U/L (16-63) Alkaline Phosphatase 96 U/L (46-116) Troponin I Quantitative < 0.017 ng/mL (0.000-0.055) YN-Twx-O-Type Natriuretic Peptide 58 pg/mL (0-124) Total Protein 7.5 g/dL (6.4-8.2) Albumin 3.8 g/dL (3.4-5.0) Albumin/Globulin Ratio 1.0 (1.0-1.7) Laboratory Tests 01/17/19 10:25 Laboratory Tests 01/17/19 10:25 EKG EKG [] Radiology/Procedures Radiology/Procedures EKG WAS DONE, READ BY THIS PHYSICIAN AT 0918, RATE OF 92 BPM, SINUS RHYTHM, NO STEMI. [facility] [address] [place], [place] [id number] IMAGING REPORT Signed PATIENT: KAYLA JONES ACCOUNT: [id number] : 1960 LOCATION: ER AGE: 58 SEX: M EXAM STATUS: PRE ER ORD. PHYSICIAN: JUSTYN PAL DO REASON: soa PROCEDURE: PORTABLE CHEST 1V PORTABLE CHEST 1V Clinical indications: Shortness of air COMPARISON: January 09, 2019. Findings: Bullous emphysema of the left upper lobe is again seen. Compression of bronchovascular markings is seen within the left lower lung zone as a result. This is stable. There is chronic interstitial lung infiltrates within the right lower lung zone which is stable. No new lung infiltrate or pleural effusion is seen. No pneumothorax is evident. The heart size and mediastinum are stable. Healed right eighth rib fracture is evident. IMPRESSION: No new radiographic abnormality. Electronically signed by: Scotty Lindsey MD (01/17/2019 9:36 AM) [facility] DICTATED and SIGNED BY: SCOTTY LINDSEY MD DATE: 01/17/19935 Course & Med Decision Making Course & Med Decision Making Pertinent Labs and Imaging studies reviewed. (See chart for details) [] Dragon Disclaimer Dragon Disclaimer This electronic medical record was generated, in whole or in part, using a voice recognition dictation system. Departure Departure Impression: Primary Impression: COPD with exacerbation Disposition: HOME, SELF-CARE Condition: IMPROVED Referrals: UNKNOWN PCP NAME (PCP) follow up with family doctor on Sunday Patient Instructions: Chronic Obstructive Pulmonary Disease Exacerbation Scripts Albuterol Sulfate (PROAIR HFA INHALER) 8.5 Gm Hfa.aer.ad 2 PUFF IH PRN Q4-6HRS PRN for wheezing for 21 Days, #1 INHALER 0 Refills Prov: JUSTYN PAL DO 01/17/19 Prednisone (PREDNISONE) 20 Mg Tablet 2 TAB PO DAILY, #20 TAB Prov: JUSTYN PAL DO 01/17/19 JUSTYN PAL DO Jan 17, 2019 11:08
[2019-01-17 11:11] LABS: PROTHROMBIN TIME PATIENT 11.9 SEC (11.7-14.0)
[2019-01-17 12:51] VITALS: BP 116/82
[2019-01-17] MEDS ORDERED: PRED20TA PO (12:52)
[2019-01-17] MEDS ORDERED: ALBU2.5V8 IH (12:52)
[2019-01-17 12:55] LABS: % BANDS 1 % (0-9); % LYMPHS 3 % (24-48); % MONOS 3 % (0-10); % SEGS 93 % (35-66); NUCLEATED RBC 1
[2019-01-17 12:57] LABS: ANISOCYTOSIS MOD; PLT ESTIMATE ADEQUATE (ADEQUATE)
[2019-01-17 12:58] LABS: OVALOCYTES PRESENT; POIKILOCYTOSIS PRESENT
[2019-01-17 12:59] LABS: SCHISTOCYTES OCC
== END 2019-01-17 13:20 | disposition home or self-care (01) ==
LOC: ER 09:08
DX: J44.1 Chronic obstructive pulmonary disease with (acute) exacerbation (principal); I50.9 Heart failure, unspecified; F17.200 Nicotine dependence, unspecified, uncomplicated; Z99.81 Dependence on supplemental oxygen
CPT/HCPCS: 36415; 71045; 80053; 81001; 83735; 83880; 84484; 85007; 85025; 85610; 85730; 93005; 94640; 96374; 99285; J2930; J7620

== ENCOUNTER 2019-01-22 22:23 | Inpatient (IN) | payer MEDICARE, MEDICAID ==
[~2019-01-22] VITALS: Ht 180.3 cm; Wt 71.2 kg
[~2019-01-22 22:23] MED LIST changes: +ALBU2.5V8 IH
[2019-01-22] MEDS ORDERED: IPRATRPIUM/ALBUTEROL 0.5/2.5MG 3 ML NEBU. ONE (22:28)
[2019-01-22] MEDS ORDERED: IPRATRPIUM/ALBUTEROL 0.5/2.5MG 3 ML NEBU. NEB ONE (22:30)
[2019-01-22] MEDS ORDERED: methylPREDNISolone SOD SUCC PF 125 MG/2 ML VIAL. IV ONE (22:30)
--- NOTE | 2019-01-22 22:38 | PHYS DOC ---
Past Medical History Past Medical History: Anxiety, Bronchitis, CHF, COPD, Other Additional Past Medical Histor: EMPHYSEMA, OSTEOPOROSIS Past Surgical History: No Surgical History Additional Past Surgical Histo: HERNIA REPAIR Alcohol Use: None Drug Use: None Adult General Chief Complaint Chief Complaint: DYSPNEA/RESPIRATOY DISTRESS HPI HPI 58-year-old male with underlying history of COPD, chronic respiratory failure, congestive heart failure presents to the emergency Department complaints of respiratory distress. Patient states this started prostate 1 hour prior to his arrival. He denies any nausea, vomiting, chest pain. He states is secondary to being too hot in his room. He is well has had noncompliance with regards to medications according to EMS. He arrived on CPAP, was transferred to 4 L of oxygen with saturations 95-97%. Review of Systems Review of Systems Constitutional: Denies fever or chills [] Respiratory: + SOB, COUGH Cardiovascular: No additional information not addressed in HPI [] GI: Denies abdominal pain, nausea, vomiting, bloody stools or diarrhea [] Musculoskeletal: Denies back pain or joint pain [] Neurologic: Denies headache, focal weakness or sensory changes [] All other systems were reviewed and found to be within normal limits, except as documented in this note. Current Medications Current Medications Current Medications Medications (Trade) Dose Ordered Sig/Candy Start Time Stop Time Status Last Admin Dose Admin Albuterol/ Ipratropium (Duoneb) 3 ml 1X ONCE 01/22/19 22:30 01/22/19 22:31 DC 01/22/19 22:32 3 ML Methylprednisolone Sodium Succinate (SOLU-Medrol 125MG VIAL) 125 mg 1X ONCE 01/22/19 22:30 01/22/19 22:32 DC 01/22/19 22:48 125 MG Allergies Allergies Allergies Coded Allergies Type Severity Reaction Last Updated Verified No Known Medication Allergies Allergy Unknown 08/26/18 Yes Physical Exam Physical Exam Constitutional: Well developed, well nourished, mild respiratory distress, non- toxic appearance. [] HENT: Normocephalic, atraumatic, bilateral external ears normal, oropharynx moist, no oral exudates, nose normal. [] Eyes: PERRLA, EOMI, conjunctiva normal, no discharge. [] Cardiovascular: Tachycardia Lungs & Thorax: decreased BS bilaterally Abdomen: Bowel sounds normal, soft, no tenderness, no masses, no pulsatile masses. [] Skin: Warm, dry, no erythema, no rash. [] Back: No tenderness, no CVA tenderness. [] Extremities: No tenderness, no edema. [] Neurologic: Alert and oriented X 3, no focal deficits noted. [] Psychologic: Affect normal, judgement normal, mood normal. [] Current Patient Data Vital Signs Vital Signs Date Time Temp Pulse Resp B/P (MAP) Pulse Ox O2 Delivery O2 Flow Rate FiO2 01/22/19 22:32 99 Nasal Cannula 3.0 01/22/19 22:30 98.8 122 26 152/86 (108) 98.8 Lab Values Laboratory Tests Test 01/22/19 22:41 White Blood Count 10.5 x10^3/uL (4.0-11.0) Red Blood Count 4.32 x10^6/uL (4.30-5.70) Hemoglobin 11.9 g/dL (13.0-17.5) L Hematocrit 37.0 % (39.0-53.0) L Mean Corpuscular Volume 86 fL (79-100) Mean Corpuscular Hemoglobin 28 pg (25-35) Mean Corpuscular Hemoglobin Concent 32 g/dL (31-37) Red Cell Distribution Width 24.9 % (11.5-14.5) H Platelet Count 188 x10^3/uL (140-400) Neutrophils (%) (Auto) 92 % (31-73) H Lymphocytes (%) (Auto) 3 % (24-48) L Monocytes (%) (Auto) 4 % (0-9) Eosinophils (%) (Auto) 0 % (0-3) Basophils (%) (Auto) 1 % (0-3) Neutrophils # (Auto) 9.7 x10^3/uL (1.8-7.7) H Lymphocytes # (Auto) 0.3 x10^3/uL (1.0-4.8) L Monocytes # (Auto) 0.5 x10^3/uL (0.0-1.1) Eosinophils # (Auto) 0.0 x10^3/uL (0.0-0.7) Basophils # (Auto) 0.1 x10^3/uL (0.0-0.2) Segmented Neutrophils % 93 % (35-66) H Band Neutrophils % 1 % (0-9) Lymphocytes % 4 % (24-48) L Monocytes % 2 % (0-10) Platelet Estimate Adequate (ADEQUATE) Poikilocytosis Slight Anisocytosis Mod Tear Drop Cells Occ Ovalocytes Few Schistocytes Occ Sodium Level 138 mmol/L (136-145) Potassium Level 4.4 mmol/L (3.5-5.1) Chloride Level 100 mmol/L (98-107) Carbon Dioxide Level 31 mmol/L (21-32) Anion Gap 7 (6-14) Blood Urea Nitrogen 11 mg/dL (8-26) Creatinine 0.9 mg/dL (0.7-1.3) Estimated GFR (Cockcroft-Gault) 104.5 BUN/Creatinine Ratio 12 (6-20) Glucose Level 101 mg/dL (70-99) H Calcium Level 9.2 mg/dL (8.5-10.1) Total Bilirubin 0.4 mg/dL (0.2-1.0) Aspartate Amino Transferase (AST) 17 U/L (15-37) Alanine Aminotransferase (ALT) 25 U/L (16-63) Alkaline Phosphatase 97 U/L (46-116) IK-Drr-Y-Type Natriuretic Peptide 62 pg/mL (0-124) Total Protein 7.2 g/dL (6.4-8.2) Albumin 3.6 g/dL (3.4-5.0) Albumin/Globulin Ratio 1.0 (1.0-1.7) Laboratory Tests 01/22/19 22:41 Laboratory Tests 01/22/19 22:41 EKG EKG EKG reviewed, tachycardia, normal axis, no evidence of acute ST elevation CT appreciated Rotation time 2234[] Radiology/Procedures Radiology/Procedures [facility] [address] [place] [address] IMAGING REPORT Signed PATIENT: KAYLA JONES ACCOUNT: [id number] : 1960 LOCATION: ER AGE: 58 SEX: M EXAM STATUS: REG ER ORD. PHYSICIAN: SWATHI RAM MD REASON: SOB PROCEDURE: PORTABLE CHEST 1V Study: PORTABLE CHEST 1V Indication: Shortness of breath. Comparison: 01/17/2019 Findings: Unchanged asymmetric lucency of the left lung relative to the right. Unchanged configuration of the cardiomediastinal silhouette and maye. No newly seen abnormality throughout the right lung or basilar aspect of the left lung. Impression: Bullous emphysematous changes of the left more so than right lungs. No superimposed acute abnormality has developed since 01/17/2019. Electronically signed by: AMNA ARCHIBALD MD (01/22/2019 11:02 PM) [id number] DICTATED and SIGNED BY: AMNA ARCHIBALD MD DATE: 01/22/192301 [] Course & Med Decision Making Course & Med Decision Making Pertinent Labs and Imaging studies reviewed. (See chart for details) []58-year-old male with underlying history of COPD, chronic respiratory failure, congestive heart failure presents to the emergency Department complaints of respiratory distress. Patient states this started prostate 1 hour prior to his arrival. He denies any nausea, vomiting, chest pain. He states is secondary to being too hot in his room. He is well has had noncompliance with regards to medications according to EMS. He arrived on CPAP, was transferred to 4 L of oxygen with saturations 95-97%. Patient presented via EMS on CPAP secondary to heart proximal area upon initial arrival. Once patient received in the emergency department CPAP was discontinued, oxygen saturation on 4 L was 90 597%. Patient provided with DuoNeb treatment. BiPAP was held given improvement. Patient was provided with Solu- Medrol as well. Laboratory values and imaging reviewed. Recommend observation. Dragon Disclaimer Dragon Disclaimer This electronic medical record was generated, in whole or in part, using a voice recognition dictation system. Departure Departure Impression: Primary Impression: COPD exacerbation Disposition: ADMITTED INPATIENT Admitting Physician: ALINE Condition: IMPROVED Referrals: UNKNOWN PCP NAME (PCP) SWATHI RAM MD Jan 22, 2019 22:38
[2019-01-22 22:53] LABS: BASO # 0.1 x10^3/uL (0.0-0.2); BASO % 1 % (0-3); EOS % 0 % (0-3); HEMOGLOBIN 11.9 g/dL (13.0-17.5); LYMPH # 0.3 x10^3/uL (1.0-4.8); LYMPH % 3 % (24-48); MEAN CORPUSCULAR HEMOGLOBIN 28 pg (25-35); MEAN CORPUSCULAR HGB CONC 32 g/dL (31-37); MEAN CORPUSCULAR VOLUME 86 fL (79-100); MONO # 0.5 x10^3/uL (0.0-1.1); MONO % 4 % (0-9); NEUT # 9.7 x10^3/uL (1.8-7.7); NEUT % 92 % (31-73); PLATELET COUNT 188 x10^3/uL (140-400); RED BLOOD COUNT 4.32 x10^6/uL (4.30-5.70); RED CELL DISTRIBUTION WIDTH 24.9 % (11.5-14.5); WHITE BLOOD COUNT 10.5 x10^3/uL (4.0-11.0)
--- NOTE | 2019-01-22 23:06 | RAD ---
Study: PORTABLE CHEST 1V Indication: Shortness of breath. Comparison: 01/17/2019 Findings: Unchanged asymmetric lucency of the left lung relative to the right. Unchanged configuration of the cardiomediastinal silhouette and maye. No newly seen abnormality throughout the right lung or basilar aspect of the left lung. Impression: Bullous emphysematous changes of the left more so than right lungs. No superimposed acute abnormality has developed since 01/17/2019. Electronically signed by: AMNA ARCHIBALD MD (01/22/2019 11:02 PM) [id number]
[2019-01-22 23:12] LABS: % BANDS 1 % (0-9); % LYMPHS 4 % (24-48); % MONOS 2 % (0-10); % SEGS 93 % (35-66); PLT ESTIMATE ADEQUATE (ADEQUATE)
[2019-01-22 23:13] LABS: ANISOCYTOSIS MOD; OVALOCYTES FEW; POIKILOCYTOSIS SLIGHT; SCHISTOCYTES OCC
[2019-01-22 23:14] LABS: TEAR DROP CELLS OCC
[2019-01-22 23:25] LABS: CALCIUM 9.2 mg/dL (8.5-10.1); CREATININE 0.9 mg/dL (0.7-1.3); GFR 104.5; POTASSIUM 4.4 mmol/L (3.5-5.1)
[2019-01-22 23:31] LABS: ALBUMIN 3.6 g/dL (3.4-5.0); TOTAL BILIRUBIN 0.4 mg/dL (0.2-1.0); TOTAL PROTEIN 7.2 g/dL (6.4-8.2)
[2019-01-23] MEDS ORDERED: ACETAMINOPHEN 325 MG TABLET. PO PRN ×2 (00:30→13:30)
[2019-01-23] MEDS ORDERED: ONDANSETRON PF 4 MG/2 ML VIAL. IV PRN (00:30)
[2019-01-23 01:01] VITALS: BP 133/76
[2019-01-23] MEDS ORDERED: TRAM50TA PO (01:25)
[2019-01-23] MEDS ORDERED: guaiFENesin ORAL 200 MG/10 ML LIQUID. PO PRN (02:15)
[2019-01-23] MEDS ORDERED: SODIUM CHLORIDE 0.65% NASAL SPRAY 45ML BOTTLE. NS PRN (02:15)
[2019-01-23] MEDS: traMADol 50 MG TABLET PO PRN ×2 (02:34→09:19)
[2019-01-23] MEDS: BUDESONIDE 0.5 MG/2 ML NEBU. NEB SCH ×2 (05:39→20:30)
--- NOTE | 2019-01-23 05:58 | EKG ---
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
[2019-01-23 07:20] VITALS: BP 126/83
[2019-01-23] MEDS ORDERED: IPRATRPIUM/ALBUTEROL 0.5/2.5MG 3 ML NEBU. NEB SCH (08:00)
--- NOTE | 2019-01-23 08:19 | PDOC1 ---
History and Physical Date of Admission Date of Admission DATE: 01/23/19 TIME: 08:19 Identification/Chief Complaint Chief Complaint seen in er , 58-year-old male with underlying history of COPD, chronic respiratory failure, congestive heart failure presents to the emergency Department complaints of respiratory distress. Patient states this started prostate 1 hour prior to his arrival. He denies any nausea, vomiting, chest pain. He states is secondary to being too hot in his room. He is well has had noncompliance with regards to medications according to EMS. He arrived on CPAP, was transferred to 4 L of oxygen HAS REFUSED SNF AMA SEVERAL TIMES Past Medical History Past Medical History Past Medical History Past Medical History Past Medical History: Anxiety, Bronchitis, CHF, COPD, Other Additional Past Medical Histor: EMPHYSEMA, OSTEOPOROSIS Past Surgical History: No Surgical History Additional Past Surgical Histo: HERNIA REPAIR Alcohol Use: None Drug Use: None Past Medical History Past Medical History: Anxiety, Bronchitis, CHF, COPD, Other Additional Past Medical Histor: EMPHYSEMA, OSTEOPOROSIS Past Surgical History: No Surgical History Additional Past Surgical Histo: HERNIA REPAIR Alcohol Use: None Drug Use: None Cardiovascular: CHF, HTN, Hyperlipidemia, Other Pulmonary: Asthma, COPD, Pneumonia, Other CENTRAL NERVOUS SYSTEM: Other GI: GERD Heme/Onc: No pertinent hx Hepatobiliary: No pertinent hx Psych: Anxiety Musculoskeletal: low back pain, Osteoarthritis, Weakness Rheumatologic: No pertinent hx Infectious disease: No pertinent hx Renal/: Chronic renal insuff Endocrine: Diabetes Past Surgical History Past Surgical History: Hernia Repair Family History Family History: Coronary Artery Disease, Hypertension Social History Smoke: Quit ALCOHOL: none Drugs: None Current Medications Current Medications Current Medications Albuterol/ Ipratropium (Duoneb) 3 ml STK-MED ONCE .ROUTE ; Start 01/22/19 at 22:28; Stop 01/22/19 at 22:28; Status DC Albuterol/ Ipratropium (Duoneb) 3 ml 1X ONCE NEB Last administered on 01/22/19at 22:32; Start 01/22/19 at 22:30; Stop 01/22/19 at 22:31; Status DC Methylprednisolone Sodium Succinate (SOLU-Medrol 125MG VIAL) 125 mg 1X ONCE IV Last administered on 01/22/19at 22:48; Start 01/22/19 at 22:30; Stop 01/22/19 at 22:32; Status DC Ondansetron HCl (Zofran) 4 mg PRN Q8HRS PRN IV NAUSEA/VOMITING; Start 01/23/19 at 00:30; Stop 01/24/19 at 00:29 Acetaminophen (Tylenol) 650 mg PRN Q4HRS PRN PO FEVER; Start 01/23/19 at 00:30; Stop 01/24/19 at 00:29 Albuterol/ Ipratropium (Duoneb) 3 ml RTQID NEB Last administered on 01/23/19at 05:39; Start 01/23/19 at 08:00; Stop 01/24/19 at 07:59 Aspirin (Ecotrin) 81 mg DAILYWBKFT PO ; Start 01/23/19 at 08:00 Benzonatate (Tessalon Perle) 100 mg TID PO ; Start 01/23/19 at 09:00 Ferrous Sulfate (Feosol) 325 mg DAILY PO ; Start 01/23/19 at 09:00 Fluticasone Propionate (Flonase) 2 spray DAILY NS ; Start 01/23/19 at 09:00 Furosemide (Lasix) 40 mg DAILY PO ; Start 01/23/19 at 09:00 Guaifenesin (Robitussin) 200 mg PRN Q4HRS PRN PO COUGH Last administered on 01/23/19at 05:22; Start 01/23/19 at 02:15 Lorazepam (Ativan) 1 mg BID PO ; Start 01/23/19 at 09:00 Metformin HCl (Glucophage) 500 mg DAILYWBKFT PO ; Start 01/23/19 at 08:00 Metoclopramide HCl (Reglan) 5 mg QID PO ; Start 01/23/19 at 09:00 Montelukast Sodium (Singulair) 10 mg QHS PO ; Start 01/23/19 at 21:00 Polyethylene Glycol (miraLAX PACKET) 17 gm BID PO ; Start 01/23/19 at 09:00 Potassium Chloride (Klor-Con) 20 meq DAILY PO ; Start 01/23/19 at 09:00 Prednisone (Prednisone) 40 mg DAILY PO ; Start 01/23/19 at 09:00 Sodium Chloride (Saline Mist Nasal) 1 angel PRN Q1HR PRN NS NASAL CONGESTION; Start 01/23/19 at 02:15 Tramadol HCl (Ultram) 100 mg PRN Q6HRS PRN PO PAIN Last administered on 01/23/19at 02:34; Start 01/23/19 at 02:15 Non-Formulary Medication (Budesonide/ Formoterol Fumarate (Symbicort 160-4.5 Mcg Inhaler)) 2 puff BID IH ; Start 01/23/19 at 09:00; Status UNV Vitamin D (Vitamin D3) 5,000 unit DAILY PO ; Start 01/23/19 at 09:00 Pantoprazole Sodium (Protonix) 40 mg DAILYAC PO ; Start 01/23/19 at 07:30 Budesonide (Pulmicort) 0.5 mg RTBID NEB Last administered on 01/23/19at 05:39; Start 01/23/19 at 08:00 Albuterol Sulfate (Ventolin Neb Soln) 2.5 mg RTQID NEB ; Start 01/23/19 at 08:00 Active Scripts Active Proair Hfa Inhaler (Albuterol Sulfate) 8.5 Gm Hfa.aer.ad 2 Puff IH PRN Q4-6HRS PRN 21 Days Prednisone 20 Mg Tablet 2 Tab PO DAILY Mag-Al Plus Xs Suspension (Mag Hydrox/Al Hydrox/Simeth) 30 Ml Oral.susp 30 Ml PO PRN DAILY PRN 10 Days [place] (Sodium Chloride) 44 Ml [place] 1 Angel NS PRN Q1HR PRN 10 Days Doxycycline Hyclate 100 Mg Capsule 1 Cap PO BID Hydrocodone-Apap 10-325 (Hydrocodone Bit/Acetaminophen) 1 Tab Tablet 1 Tab PO PRN Q6HRS PRN Culturelle (Lactobacillus Rhamnosus Gg) 1 Each Cap.sprink 1 Cap PO BID 30 Days Colace (Docusate Sodium) 100 Mg Capsule 100 Mg PO DAILY 30 Days Fluticasone Propionate Nasal [place] (Fluticasone Propionate) 16 Gm [place].susp 2 [place] NS DAILY 30 Days Miralax (Polyethylene Glycol 3350) 119 Gm Powder 17 Gm PO BID Duoneb 0.5-3(2.5) Mg/3 Ml (Albuterol/Ipratropium) 3 Ml Ampul.neb 3 Ml NEB QID Tessalon Perle (Benzonatate) 100 Mg Capsule 1 Cap PO TID Montelukast Sodium Tablet (Montelukast Sodium) 10 Mg Tablet 10 Mg PO QHS Lidocaine PATCH (Lidocaine) 1 Each Adh..patch 1 Each TP DAILY 30 Days REMOVE AFTER 12 HOURS Humalog (Insulin Lispro) 100 Unit/1 Ml Insuln.pen 0 Units SQ TIDWMEALS 30 Days Aspirin Ec (Aspirin) 81 Mg Tablet.dr 81 Mg PO DAILYWBKFT 30 Days Guaifenesin 100 Mg/5 Ml Liquid 200 Mg PO PRN Q4HRS PRN 30 Days Tylenol (Acetaminophen) 325 Mg Tablet 650 Mg PO PRN Q4HRS PRN 10 Days Ventolin Hfa Inhaler (Albuterol Sulfate) 18 Gm Hfa.aer.ad 2 Puff INH Q4HRS Reglan (Metoclopramide Hcl) 10 Mg Tablet 0.5 Tab PO QID 30 Days Reported Tramadol Hcl 50 Mg Tablet 100 Mg PO Q6HRS PRN Lasix (Furosemide) 40 Mg Tablet 1 Tab PO DAILY 30 Days Feosol (Ferrous Sulfate) 325 Mg Tablet 1 Tab PO DAILY 30 Days Tramadol Hcl 50 Mg Tablet 50 Mg PO Q6HRS PRN Prednisone (Prednisone) 10 Mg Tablet 10 Mg PO DAILY Ferrous Sulfate 325 Mg Tablet 325 Mg PO DAILY Ativan (Lorazepam) 1 Mg Tablet 1 Mg PO BID Metformin Hcl 500 Mg Tablet 500 Mg PO DAILYWBKFT Pulmicort (Budesonide) 0.25 Mg/2 Ml Ampul.neb 1 Vial NEB BID Albuterol Sulfate Neb Soln (Albuterol Sulfate) 2.5 Mg/3 Ml Vial.neb 1 Vial NEB PRN Q2HR PRN Furosemide 40 Mg Tablet 1 Tab PO DAILY Vitamin D3 (Cholecalciferol (Vitamin D3)) 5,000 Unit Tablet 5,000 Unit PO DAILY Potassium Chloride (Potassium Chloride) 20 Meq Tablet.er 20 Meq PO DAILY Protonix (Pantoprazole Sodium) 20 Mg Tablet.dr 2 Tab PO DAILY Atorvastatin Calcium 10 Mg Tablet 10 Mg PO HS Symbicort 160-4.5 Mcg Inhaler (Budesonide/Formoterol Fumarate) 10.2 Gm Hfa.a er.ad 2 Puff IH BID Allergies Allergies: Coded Allergies: No Known Medication Allergies (Verified Allergy, Unknown, 08/26/18) ROS Review of System Review of Systems Review of Systems Constitutional: Denies fever or chills [] Respiratory: + SOB, COUGH Cardiovascular: No additional information not addressed in HPI [] GI: Denies abdominal pain, nausea, vomiting, bloody stools or diarrhea [] Musculoskeletal: Denies back pain or joint pain [] Neurologic: Denies headache, focal weakness or sensory changes [] 14 pt systems were reviewed and found to be within normal limits, except as documented General: YES: Fatigue PSYCHOLOGICAL ROS: YES: Anxiety Respiratory: YES: Cough, Shortness of breath, SOB with excertion Cardiovascular: No Chest Pain, No Palpitations, No Orthopnea, No Paroxysmal Noc. Dyspnea, No Edema, No Lt Headedness, No Other Gastrointestinal: No Nausea, No Vomiting, No Abdominal Pain, No Diarrhea, No Constipation, No Melena, No Hematochezia, No Other Musculoskeletal: Yes Joint Stiffness Neurological: Yes Gait Disturbance Physical Exam Physical Exam Physical Exam Physical Exam Constitutional: Well developed, well nourished, mild respiratory distress, non- toxic appearance. [] HENT: Normocephalic, atraumatic, bilateral external ears normal, oropharynx moist, no oral exudates, nose normal. [] Eyes: PERRLA, EOMI, conjunctiva normal, no discharge. [] Cardiovascular: Tachycardia Lungs & Thorax: decreased BS bilaterally Abdomen: Bowel sounds normal, soft, no tenderness, no masses, no pulsatile masses. [] Skin: Warm, dry, no erythema, no rash. [] Back: No tenderness, no CVA tenderness. [] Extremities: No tenderness, no edema. [] Neurologic: Alert and oriented X 3, no focal deficits noted. [] Psychologic: Affect normal, judgement normal, mood normal. [] General: Alert, Oriented X3, Cooperative, mild distress HEENT: Atraumatic Heart: RRR, no gallops Breasts: Not examined Abdomen: Normal bowel sounds, Soft PELVIC: Examination not indicated Extremities: No cyanosis Neuro: Normal speech, Cranial nerves 3-12 NL Psych/Mental Status: Mental status NL, Mood NL Vitals Vitals Vital Signs Date Time Temp Pulse Resp B/P (MAP) Pulse Ox O2 Delivery O2 Flow Rate FiO2 01/23/19 07:20 98.0 84 18 126/83 (97) 99 Nasal Cannula 4.0 98.0 Labs Labs Laboratory Tests Test 01/22/19 22:41 White Blood Count 10.5 x10^3/uL (4.0-11.0) Red Blood Count 4.32 x10^6/uL (4.30-5.70) Hemoglobin 11.9 g/dL (13.0-17.5) Hematocrit 37.0 % (39.0-53.0) Mean Corpuscular Volume 86 fL (79-100) Mean Corpuscular Hemoglobin 28 pg (25-35) Mean Corpuscular Hemoglobin Concent 32 g/dL (31-37) Red Cell Distribution Width 24.9 % (11.5-14.5) Platelet Count 188 x10^3/uL (140-400) Neutrophils (%) (Auto) 92 % (31-73) Lymphocytes (%) (Auto) 3 % (24-48) Monocytes (%) (Auto) 4 % (0-9) Eosinophils (%) (Auto) 0 % (0-3) Basophils (%) (Auto) 1 % (0-3) Neutrophils # (Auto) 9.7 x10^3/uL (1.8-7.7) Lymphocytes # (Auto) 0.3 x10^3/uL (1.0-4.8) Monocytes # (Auto) 0.5 x10^3/uL (0.0-1.1) Eosinophils # (Auto) 0.0 x10^3/uL (0.0-0.7) Basophils # (Auto) 0.1 x10^3/uL (0.0-0.2) Segmented Neutrophils % 93 % (35-66) Band Neutrophils % 1 % (0-9) Lymphocytes % 4 % (24-48) Monocytes % 2 % (0-10) Platelet Estimate Adequate (ADEQUATE) Poikilocytosis Slight Anisocytosis Mod Tear Drop Cells Occ Ovalocytes Few Schistocytes Occ Sodium Level 138 mmol/L (136-145) Potassium Level 4.4 mmol/L (3.5-5.1) Chloride Level 100 mmol/L (98-107) Carbon Dioxide Level 31 mmol/L (21-32) Anion Gap 7 (6-14) Blood Urea Nitrogen 11 mg/dL (8-26) Creatinine 0.9 mg/dL (0.7-1.3) Estimated GFR (Cockcroft-Gault) 104.5 BUN/Creatinine Ratio 12 (6-20) Glucose Level 101 mg/dL (70-99) Calcium Level 9.2 mg/dL (8.5-10.1) Total Bilirubin 0.4 mg/dL (0.2-1.0) Aspartate Amino Transf (AST/SGOT) 17 U/L (15-37) Alanine Aminotransferase (ALT/SGPT) 25 U/L (16-63) Alkaline Phosphatase 97 U/L (46-116) GF-Fnl-V-Type Natriuretic Peptide 62 pg/mL (0-124) Total Protein 7.2 g/dL (6.4-8.2) Albumin 3.6 g/dL (3.4-5.0) Albumin/Globulin Ratio 1.0 (1.0-1.7) Laboratory Tests Test 01/22/19 22:41 White Blood Count 10.5 x10^3/uL (4.0-11.0) Red Blood Count 4.32 x10^6/uL (4.30-5.70) Hemoglobin 11.9 g/dL (13.0-17.5) Hematocrit 37.0 % (39.0-53.0) Mean Corpuscular Volume 86 fL (79-100) Mean Corpuscular Hemoglobin 28 pg (25-35) Mean Corpuscular Hemoglobin Concent 32 g/dL (31-37) Red Cell Distribution Width 24.9 % (11.5-14.5) Platelet Count 188 x10^3/uL (140-400) Neutrophils (%) (Auto) 92 % (31-73) Lymphocytes (%) (Auto) 3 % (24-48) Monocytes (%) (Auto) 4 % (0-9) Eosinophils (%) (Auto) 0 % (0-3) Basophils (%) (Auto) 1 % (0-3) Neutrophils # (Auto) 9.7 x10^3/uL (1.8-7.7) Lymphocytes # (Auto) 0.3 x10^3/uL (1.0-4.8) Monocytes # (Auto) 0.5 x10^3/uL (0.0-1.1) Eosinophils # (Auto) 0.0 x10^3/uL (0.0-0.7) Basophils # (Auto) 0.1 x10^3/uL (0.0-0.2) Segmented Neutrophils % 93 % (35-66) Band Neutrophils % 1 % (0-9) Lymphocytes % 4 % (24-48) Monocytes % 2 % (0-10) Platelet Estimate Adequate (ADEQUATE) Poikilocytosis Slight Anisocytosis Mod Tear Drop Cells Occ Ovalocytes Few Schistocytes Occ Sodium Level 138 mmol/L (136-145) Potassium Level 4.4 mmol/L (3.5-5.1) Chloride Level 100 mmol/L (98-107) Carbon Dioxide Level 31 mmol/L (21-32) Anion Gap 7 (6-14) Blood Urea Nitrogen 11 mg/dL (8-26) Creatinine 0.9 mg/dL (0.7-1.3) Estimated GFR (Cockcroft-Gault) 104.5 BUN/Creatinine Ratio 12 (6-20) Glucose Level 101 mg/dL (70-99) Calcium Level 9.2 mg/dL (8.5-10.1) Total Bilirubin 0.4 mg/dL (0.2-1.0) Aspartate Amino Transf (AST/SGOT) 17 U/L (15-37) Alanine Aminotransferase (ALT/SGPT) 25 U/L (16-63) Alkaline Phosphatase 97 U/L (46-116) YC-Roi-S-Type Natriuretic Peptide 62 pg/mL (0-124) Total Protein 7.2 g/dL (6.4-8.2) Albumin 3.6 g/dL (3.4-5.0) Albumin/Globulin Ratio 1.0 (1.0-1.7) Images Images Aortic Valve AoV Peak Hema. 111.6cm/s AoV VTI 22.7cm AO Peak GR. 5.0mmHg LVOT VTI 14.38cm AO Mean GR. 5mmHg TDI Lateral E' P. V 9.40cm/s Medial E' P. V 8.88cm/s Pulmonary Vein S1 Velocity 41.7cm/s S2 Velocity 37.07cm/s D2 Velocity 37.1cm/s PVa duration 90msec LEFT VENTRICLE The left ventricle is normal size. There is moderate concentric left ventricular hypertrophy. The left ventricular systolic function is normal and the ejection fraction is within normal range. The Ejection Fraction is >55%. There is normal LV segmental wall motion. Transmitral Doppler flow pattern is Grade I-abnormal relaxation pattern. RIGHT VENTRICLE The right ventricle is moderately dilated. There is normal right ventricular wall thickness. The right ventricular systolic function is normal. ATRIA The left atrium is mildly dilated. The right atrium size is normal. The interatrial septum is intact with no evidence for an atrial septal defect or patent foramen ovale as noted on 2-D or Doppler imaging. AORTIC VALVE The aortic valve is not well visualized. Doppler and Color Flow revealed no significant aortic regurgitation. There is no significant aortic valvular stenosis. MITRAL VALVE The mitral valve is normal in structure and function. There is no evidence of mitral valve prolapse. There is no mitral valve stenosis. Doppler and Color Flow revealed no mitral valve regurgitation noted. TRICUSPID VALVE The tricuspid valve is normal in structure and function. Doppler and Color Flow revealed no tricuspid valve regurgitation noted. There is no tricuspid valve stenosis. PULMONIC VALVE The pulmonic valve is not well visualized. Doppler and Color Flow revealed no pulmonic valvular regurgitation. There is no pulmonic valvular stenosis. GREAT VESSELS The aortic root is normal in size. The IVC is dilated and collapses >50% with inspiration. PERICARDIAL EFFUSION There is no evidence of significant pericardial effusion. Critical Notification Critical Value: No <Conclusion> The left ventricular systolic function is normal and the ejection fraction is within normal range. The Ejection Fraction is >55%. There is normal LV segmental wall motion. The right ventricle is moderately dilated. The right ventricular systolic function is normal. Signed by : Luis Manuel Thornton, Electronically Approved : 05/26/2018 19:57:37 CT CHEST ABDOMEN AND PELVIS WITH IV CONTRAST History: Cough, abdominal pain Comparison: CT chest dated 09/08/2018. Technique: Helical CT of the chest abdomen and pelvis was performed after the administration of intravenous contrast. Sagittal and coronal reconstructions were obtained. 75 mL Omnipaque 300. Chest Findings: The thyroid is symmetric. There is no significant axillary, mediastinal, or hilar adenopathy. The thoracic aorta diameter is normal. The cardiac size is normal. Coronary artery calcifications. There is no pericardial effusion. The upper limits of the bilateral apices are excluded from the [id number]. Redemonstration of large left upper lobe bullous. Otherwise moderate emphysematous changes elsewhere. Mild right apical subpleural fibrosis. Bilateral linear opacities likely related to atelectasis versus scarring. No focal consolidation. No suspicious pulmonary nodule or mass. No pleural effusion or pneumothorax. The central airways are patent. Abdomen Findings: The liver, gallbladder, pancreas, spleen, and bilateral adrenal glands are normal. Small left likely renal cyst, similar to prior. Bilateral kidneys otherwise enhance symmetrically. There is no focal renal mass. There is no hydronephrosis. The visualized loops of small bowel are normal. Moderate colonic stool. The visualized loops of large bowel are otherwise normal. There is no evidence of bowel obstruction. Appendix is normal. There is no free fluid. There is no mesenteric or retroperitoneal adenopathy. Mild atherosclerosis of the tortuous abdominal aorta and its branches. Likely severe stenosis in the proximal left superficial femoral artery, although incompletely visualized. Pelvis Findings: Urinary bladder is underdistended limiting evaluation. No pelvic free fluid. There is no significant pelvic or inguinal adenopathy. Approximately 40 percent T8 vertebral body height loss appears new from prior exam. Additional mild height loss including T7, T9, T10, and T12 appears similar to prior exams. Levocurvature of the lumbar spine. Moderate multilevel degenerative changes of the visualized spine. IMPRESSION: 1. No acute intrathoracic, intra-abdominal, or intrapelvic process identified. 2. Approximately 40 percent T8 vertebral body height loss is new from 09/08/2018 exam. Correlate for point tenderness in the region. MRI thoracic spine could be obtained for further evaluation if there is concern for acute fracture. RS Compliance Statement: One or more of the following individualized dose reduction techniques were utilized for this examination: 1. Automated exposure control 2. Adjustment of the mA and/or kV according to patient size 3. Use of iterative reconstruction technique Electronically signed by: Todd Cohen MD (10/13/2018 10:14 PM) [facility] DICTATED and SIGNED BY: TODD COHEN MD DATE: 10/13/18 2214 Study: PORTABLE CHEST 1V Indication: Shortness of breath. Comparison: 01/17/2019 Findings: Unchanged asymmetric lucency of the left lung relative to the right. Unchanged configuration of the cardiomediastinal silhouette and maye. No newly seen abnormality throughout the right lung or basilar aspect of the left lung. Impression: Bullous emphysematous changes of the left more so than right lungs. No superimposed acute abnormality has developed since 01/17/2019. Electronically signed by: MANA ARCHIBALD MD (01/22/2019 11:02 PM) [facility] VTE Prophylaxis Ordered VTE Prophylaxis Devices: No VTE Pharmacological Prophylaxi: Yes Assessment/Plan Assessment/Plan Impression: acute COPD exacerbation PROB ENDSTAGE COPD large left upper lobe bullous. Otherwise moderate emphysematous changes elsewhere. Mild right apical subpleural fibrosis. Bilateral linear opacities likely related to atelectasis versus scarring. acute on chronic resp failure CHF Approximate 40 percent T8 vertebral body height loss is new from 09/08/2018 taina ruggiero. ADMITTED TELE O2 SUPPORT PULM CONSULT HOME MEDS TAPERING IV STEROIDS CHRONIC PAIN TOMAS BAIG MD Jan 23, 2019 08:19
[2019-01-23] MEDS: ALBUTEROL SULFATE 2.5 MG/3 ML NEBU. NEB SCH ×4 (08:41→20:00)
[2019-01-23] MEDS ORDERED: NON FORMULARY ITEM (Budesonide/Formoterol Fumarate (Symbicort 160-4.5 Mcg Inhaler) 2 PUFF) IH SCH (09:00)
[2019-01-23] MEDS: POLYETHYLENE GLYCOL 3350 17 GM PACKET. PO SCH ×2 (09:00→20:37)
[2019-01-23] MEDS: CHOLECALCIFEROL (VITAMIN D3) 5,000 UNIT CAPSULE PO SCH (09:01)
[2019-01-23] MEDS: LORazepam 1 MG TABLET PO SCH ×2 (09:01→20:37)
[2019-01-23] MEDS: FUROSEMIDE 40 MG TABLET. PO SCH ×2 (09:01→13:34)
[2019-01-23] MEDS: metFORMIN 500 MG TABLET PO SCH (09:01)
[2019-01-23] MEDS: BENZONATATE 100 MG CAPSULE. PO SCH ×3 (09:01→20:37)
[2019-01-23] MEDS: METOCLOPRAMIDE 10 MG TABLET. PO SCH ×4 (09:01→20:37)
[2019-01-23] MEDS: PANTOPRAZOLE 40 MG TABLET.DR. PO SCH (09:01)
[2019-01-23] MEDS: FERROUS SULFATE 325 MG TABLET. PO SCH ×2 (09:01→13:34)
[2019-01-23] MEDS: ASPIRIN ENTERIC COATED 81 MG TABLET.DR. PO SCH (09:02)
[2019-01-23] MEDS: FLUTICASONE 50MCG/NASAL SPRAY 16GM BOTTLE. NS SCH (09:02)
[2019-01-23] MEDS: POTASSIUM CHLORIDE 20 MEQ TABLET.ER. PO SCH (09:02)
[2019-01-23] MEDS: predniSONE 20 MG TABLET PO SCH (09:02)
[2019-01-23 11:21] VITALS: BP 128/89
[2019-01-23] MEDS ORDERED: MAG HYDROX/ALUMINUM HYD/SIMETH 30 ML ORAL.SUSP PO PRN (13:30)
[2019-01-23] MEDS ORDERED: HYDROcodone/APAP 10/325 1 TAB TABLET PO PRN (13:30)
[2019-01-23] MEDS ORDERED: traMADol 50 MG TABLET PO PRN (13:30)
[2019-01-23] MEDS ORDERED: ALBUTEROL SULFATE 2.5 MG/3 ML NEBU. NEB PRN ×2 (13:30)
[2019-01-23] MEDS: DOCUSATE SODIUM 100 MG CAPSULE. PO SCH (13:34)
[2019-01-23] MEDS: LIDOCAINE (700MG/PATCH) PATCH. TP SCH (13:34)
[2019-01-23] MEDS: LACTOBACILLUS RHAMNOSUS GG 1 CAPSULE. PO SCH ×2 (13:34→20:37)
--- NOTE | 2019-01-23 13:58 | NUR ---
SS following for discharge planning. SS reviewed pt chart. Pt is from home and has home oxygen services through [facility], [place]. SS will continue to follow for discharge planning.
[2019-01-23 15:08] VITALS: BP 109/64
[2019-01-23] MEDS: INSULIN LISPRO 300 UNITS/3 ML VIAL. SQ SCH (16:43)
[2019-01-23] MEDS: IPRATRPIUM/ALBUTEROL 0.5/2.5MG 3 ML NEBU. NEB SCH ×2 (17:00→20:35)
[2019-01-23 19:25] VITALS: BP 108/71
[2019-01-23] MEDS: MONTELUKAST SODIUM 10 MG TABLET. PO SCH (20:36)
[2019-01-23] MEDS: ATORVASTATIN CALCIUM 10 MG TABLET. PO SCH (20:37)
[2019-01-23 23:25] VITALS: BP 134/84
[2019-01-24 03:25] VITALS: BP 149/92
[2019-01-24] MEDS: traMADol 50 MG TABLET PO PRN ×2 (03:46→18:08)
[2019-01-24 06:10] LABS: BASO % 0 % (0-3); EOS % 0 % (0-3); HEMATOCRIT 33.1 % (39.0-53.0); HEMOGLOBIN 10.8 g/dL (13.0-17.5); LYMPH # 0.3 x10^3/uL (1.0-4.8); LYMPH % 4 % (24-48); MEAN CORPUSCULAR HEMOGLOBIN 28 pg (25-35); MEAN CORPUSCULAR HGB CONC 33 g/dL (31-37); MEAN CORPUSCULAR VOLUME 86 fL (79-100); MONO # 0.5 x10^3/uL (0.0-1.1); MONO % 6 % (0-9); NEUT # 7.3 x10^3/uL (1.8-7.7); NEUT % 90 % (31-73); PLATELET COUNT 165 x10^3/uL (140-400); RED BLOOD COUNT 3.83 x10^6/uL (4.30-5.70); RED CELL DISTRIBUTION WIDTH 24.6 % (11.5-14.5)
[2019-01-24 06:35] LABS: ALBUMIN/GLOBULIN RATIO 0.9 (1.0-1.7); CALCIUM 9.1 mg/dL (8.5-10.1); CREATININE 0.9 mg/dL (0.7-1.3); GFR 104.5; POTASSIUM 3.9 mmol/L (3.5-5.1); TOTAL BILIRUBIN 0.3 mg/dL (0.2-1.0); TOTAL PROTEIN 6.2 g/dL (6.4-8.2)
[2019-01-24 07:00] VITALS: BP 127/78
[2019-01-24] MEDS: ALBUTEROL SULFATE 2.5 MG/3 ML NEBU. NEB SCH ×2 (07:06→11:06)
[2019-01-24] MEDS: IPRATRPIUM/ALBUTEROL 0.5/2.5MG 3 ML NEBU. NEB SCH ×4 (07:14→19:55)
[2019-01-24] MEDS: BUDESONIDE 0.5 MG/2 ML NEBU. NEB SCH ×2 (07:14→19:53)
[2019-01-24] MEDS: INSULIN LISPRO 300 UNITS/3 ML VIAL. SQ SCH ×3 (08:00→17:00)
[2019-01-24] MEDS: FLUTICASONE 50MCG/NASAL SPRAY 16GM BOTTLE. NS SCH (09:00)
[2019-01-24] MEDS: FUROSEMIDE 40 MG TABLET. PO SCH ×2 (09:00→09:43)
[2019-01-24] MEDS: FERROUS SULFATE 325 MG TABLET. PO SCH ×2 (09:00→09:44)
[2019-01-24] MEDS: DOCUSATE SODIUM 100 MG CAPSULE. PO SCH (09:00)
[2019-01-24] MEDS: LIDOCAINE (700MG/PATCH) PATCH. TP SCH (09:00)
[2019-01-24] MEDS: POLYETHYLENE GLYCOL 3350 17 GM PACKET. PO SCH ×2 (09:42→21:17)
[2019-01-24] MEDS: METOCLOPRAMIDE 10 MG TABLET. PO SCH ×4 (09:42→21:17)
[2019-01-24] MEDS: predniSONE 20 MG TABLET PO SCH (09:42)
[2019-01-24] MEDS: LACTOBACILLUS RHAMNOSUS GG 1 CAPSULE. PO SCH ×2 (09:43→21:17)
[2019-01-24] MEDS: CHOLECALCIFEROL (VITAMIN D3) 5,000 UNIT CAPSULE PO SCH (09:43)
[2019-01-24] MEDS: ASPIRIN ENTERIC COATED 81 MG TABLET.DR. PO SCH (09:43)
[2019-01-24] MEDS: POTASSIUM CHLORIDE 20 MEQ TABLET.ER. PO SCH (09:43)
[2019-01-24] MEDS: BENZONATATE 100 MG CAPSULE. PO SCH ×3 (09:43→21:17)
[2019-01-24] MEDS: PANTOPRAZOLE 40 MG TABLET.DR. PO SCH (09:44)
[2019-01-24] MEDS: LORazepam 1 MG TABLET PO SCH ×2 (09:44→21:17)
[2019-01-24] MEDS: metFORMIN 500 MG TABLET PO SCH (09:44)
[2019-01-24 11:00] VITALS: BP 114/71
--- NOTE | 2019-01-24 11:07 | PDOC ---
PROGRESS NOTES History of Present Illness History of Present Illness VTE Prophylaxis Ordered VTE Prophylaxis Devices: No VTE Pharmacological Prophylaxi: Yes Assessment/Plan Assessment/Plan Impression: acute COPD exacerbation PROB ENDSTAGE COPD large left upper lobe bullous. Otherwise moderate emphysematous changes elsewhere. Mild right apical subpleural fibrosis. Bilateral linear opacities likely related to atelectasis versus scarring. acute on chronic resp failure CHF Approximate 40 percent T8 vertebral body height loss is new from 09/08/2018 exam. states that he is in the process of being evaluated for lung transplant through [facility]. He said he will be referred to [place]. ADMITTED TELE O2 SUPPORT PULM CONSULT HOME MEDS TAPERING IV STEROIDS CHRONIC PAIN Vitals Vitals Vital Signs Date Time Temp Pulse Resp B/P (MAP) Pulse Ox O2 Delivery O2 Flow Rate FiO2 01/24/19 08:00 Nasal Cannula 3.0 01/24/19 07:15 98 01/24/19 07:00 98.5 82 20 127/78 (94) 98.5 Physical Exam General: Alert, Oriented X3, Cooperative, mild distress Heart: Regular rate Lungs: Other (diminished) Abdomen: Normal bowel sounds, Soft Extremities: No cyanosis Labs LABS Laboratory Tests Test 01/24/19 04:20 White Blood Count 8.0 x10^3/uL (4.0-11.0) Red Blood Count 3.83 x10^6/uL (4.30-5.70) Hemoglobin 10.8 g/dL (13.0-17.5) Hematocrit 33.1 % (39.0-53.0) Mean Corpuscular Volume 86 fL (79-100) Mean Corpuscular Hemoglobin 28 pg (25-35) Mean Corpuscular Hemoglobin Concent 33 g/dL (31-37) Red Cell Distribution Width 24.6 % (11.5-14.5) Platelet Count 165 x10^3/uL (140-400) Neutrophils (%) (Auto) 90 % (31-73) Lymphocytes (%) (Auto) 4 % (24-48) Monocytes (%) (Auto) 6 % (0-9) Eosinophils (%) (Auto) 0 % (0-3) Basophils (%) (Auto) 0 % (0-3) Neutrophils # (Auto) 7.3 x10^3/uL (1.8-7.7) Lymphocytes # (Auto) 0.3 x10^3/uL (1.0-4.8) Monocytes # (Auto) 0.5 x10^3/uL (0.0-1.1) Eosinophils # (Auto) 0.0 x10^3/uL (0.0-0.7) Basophils # (Auto) 0.0 x10^3/uL (0.0-0.2) Sodium Level 138 mmol/L (136-145) Potassium Level 3.9 mmol/L (3.5-5.1) Chloride Level 98 mmol/L (98-107) Carbon Dioxide Level 35 mmol/L (21-32) Anion Gap 5 (6-14) Blood Urea Nitrogen 16 mg/dL (8-26) Creatinine 0.9 mg/dL (0.7-1.3) Estimated GFR (Cockcroft-Gault) 104.5 BUN/Creatinine Ratio 18 (6-20) Glucose Level 89 mg/dL (70-99) Calcium Level 9.1 mg/dL (8.5-10.1) Total Bilirubin 0.3 mg/dL (0.2-1.0) Aspartate Amino Transf (AST/SGOT) 14 U/L (15-37) Alanine Aminotransferase (ALT/SGPT) 20 U/L (16-63) Alkaline Phosphatase 80 U/L (46-116) Total Protein 6.2 g/dL (6.4-8.2) Albumin 3.0 g/dL (3.4-5.0) Albumin/Globulin Ratio 0.9 (1.0-1.7) Comment Review of Relevant I have reviewed the following items franki (where applicable) has been applied. Labs Laboratory Tests Test 01/22/19 22:41 01/24/19 04:20 White Blood Count 10.5 x10^3/uL (4.0-11.0) 8.0 x10^3/uL (4.0-11.0) Red Blood Count 4.32 x10^6/uL (4.30-5.70) 3.83 x10^6/uL (4.30-5.70) Hemoglobin 11.9 g/dL (13.0-17.5) 10.8 g/dL (13.0-17.5) Hematocrit 37.0 % (39.0-53.0) 33.1 % (39.0-53.0) Mean Corpuscular Volume 86 fL (79-100) 86 fL (79-100) Mean Corpuscular Hemoglobin 28 pg (25-35) 28 pg (25-35) Mean Corpuscular Hemoglobin Concent 32 g/dL (31-37) 33 g/dL (31-37) Red Cell Distribution Width 24.9 % (11.5-14.5) 24.6 % (11.5-14.5) Platelet Count 188 x10^3/uL (140-400) 165 x10^3/uL (140-400) Neutrophils (%) (Auto) 92 % (31-73) 90 % (31-73) Lymphocytes (%) (Auto) 3 % (24-48) 4 % (24-48) Monocytes (%) (Auto) 4 % (0-9) 6 % (0-9) Eosinophils (%) (Auto) 0 % (0-3) 0 % (0-3) Basophils (%) (Auto) 1 % (0-3) 0 % (0-3) Neutrophils # (Auto) 9.7 x10^3/uL (1.8-7.7) 7.3 x10^3/uL (1.8-7.7) Lymphocytes # (Auto) 0.3 x10^3/uL (1.0-4.8) 0.3 x10^3/uL (1.0-4.8) Monocytes # (Auto) 0.5 x10^3/uL (0.0-1.1) 0.5 x10^3/uL (0.0-1.1) Eosinophils # (Auto) 0.0 x10^3/uL (0.0-0.7) 0.0 x10^3/uL (0.0-0.7) Basophils # (Auto) 0.1 x10^3/uL (0.0-0.2) 0.0 x10^3/uL (0.0-0.2) Segmented Neutrophils % 93 % (35-66) Band Neutrophils % 1 % (0-9) Lymphocytes % 4 % (24-48) Monocytes % 2 % (0-10) Platelet Estimate Adequate (ADEQUATE) Poikilocytosis Slight Anisocytosis Mod Tear Drop Cells Occ Ovalocytes Few Schistocytes Occ Sodium Level 138 mmol/L (136-145) 138 mmol/L (136-145) Potassium Level 4.4 mmol/L (3.5-5.1) 3.9 mmol/L (3.5-5.1) Chloride Level 100 mmol/L (98-107) 98 mmol/L (98-107) Carbon Dioxide Level 31 mmol/L (21-32) 35 mmol/L (21-32) Anion Gap 7 (6-14) 5 (6-14) Blood Urea Nitrogen 11 mg/dL (8-26) 16 mg/dL (8-26) Creatinine 0.9 mg/dL (0.7-1.3) 0.9 mg/dL (0.7-1.3) Estimated GFR (Cockcroft-Gault) 104.5 104.5 BUN/Creatinine Ratio 12 (6-20) 18 (6-20) Glucose Level 101 mg/dL (70-99) 89 mg/dL (70-99) Calcium Level 9.2 mg/dL (8.5-10.1) 9.1 mg/dL (8.5-10.1) Total Bilirubin 0.4 mg/dL (0.2-1.0) 0.3 mg/dL (0.2-1.0) Aspartate Amino Transf (AST/SGOT) 17 U/L (15-37) 14 U/L (15-37) Alanine Aminotransferase (ALT/SGPT) 25 U/L (16-63) 20 U/L (16-63) Alkaline Phosphatase 97 U/L (46-116) 80 U/L (46-116) YJ-Bgq-Q-Type Natriuretic Peptide 62 pg/mL (0-124) Total Protein 7.2 g/dL (6.4-8.2) 6.2 g/dL (6.4-8.2) Albumin 3.6 g/dL (3.4-5.0) 3.0 g/dL (3.4-5.0) Albumin/Globulin Ratio 1.0 (1.0-1.7) 0.9 (1.0-1.7) Laboratory Tests Test 01/24/19 04:20 White Blood Count 8.0 x10^3/uL (4.0-11.0) Red Blood Count 3.83 x10^6/uL (4.30-5.70) Hemoglobin 10.8 g/dL (13.0-17.5) Hematocrit 33.1 % (39.0-53.0) Mean Corpuscular Volume 86 fL (79-100) Mean Corpuscular Hemoglobin 28 pg (25-35) Mean Corpuscular Hemoglobin Concent 33 g/dL (31-37) Red Cell Distribution Width 24.6 % (11.5-14.5) Platelet Count 165 x10^3/uL (140-400) Neutrophils (%) (Auto) 90 % (31-73) Lymphocytes (%) (Auto) 4 % (24-48) Monocytes (%) (Auto) 6 % (0-9) Eosinophils (%) (Auto) 0 % (0-3) Basophils (%) (Auto) 0 % (0-3) Neutrophils # (Auto) 7.3 x10^3/uL (1.8-7.7) Lymphocytes # (Auto) 0.3 x10^3/uL (1.0-4.8) Monocytes # (Auto) 0.5 x10^3/uL (0.0-1.1) Eosinophils # (Auto) 0.0 x10^3/uL (0.0-0.7) Basophils # (Auto) 0.0 x10^3/uL (0.0-0.2) Sodium Level 138 mmol/L (136-145) Potassium Level 3.9 mmol/L (3.5-5.1) Chloride Level 98 mmol/L (98-107) Carbon Dioxide Level 35 mmol/L (21-32) Anion Gap 5 (6-14) Blood Urea Nitrogen 16 mg/dL (8-26) Creatinine 0.9 mg/dL (0.7-1.3) Estimated GFR (Cockcroft-Gault) 104.5 BUN/Creatinine Ratio 18 (6-20) Glucose Level 89 mg/dL (70-99) Calcium Level 9.1 mg/dL (8.5-10.1) Total Bilirubin 0.3 mg/dL (0.2-1.0) Aspartate Amino Transf (AST/SGOT) 14 U/L (15-37) Alanine Aminotransferase (ALT/SGPT) 20 U/L (16-63) Alkaline Phosphatase 80 U/L (46-116) Total Protein 6.2 g/dL (6.4-8.2) Albumin 3.0 g/dL (3.4-5.0) Albumin/Globulin Ratio 0.9 (1.0-1.7) Medications Current Medications Albuterol/ Ipratropium (Duoneb) 3 ml STK-MED ONCE .ROUTE ; Start 01/22/19 at 22:28; Stop 01/22/19 at 22:28; Status DC Albuterol/ Ipratropium (Duoneb) 3 ml 1X ONCE NEB Last administered on 01/22/19at 22:32; Start 01/22/19 at 22:30; Stop 01/22/19 at 22:31; Status DC Methylprednisolone Sodium Succinate (SOLU-Medrol 125MG VIAL) 125 mg 1X ONCE IV Last administered on 01/22/19at 22:48; Start 01/22/19 at 22:30; Stop 01/22/19 at 22:32; Status DC Ondansetron HCl (Zofran) 4 mg PRN Q8HRS PRN IV NAUSEA/VOMITING; Start 01/23/19 at 00:30; Stop 01/24/19 at 00:29; Status DC Acetaminophen (Tylenol) 650 mg PRN Q4HRS PRN PO FEVER; Start 01/23/19 at 00:30; Stop 01/24/19 at 00:29; Status DC Albuterol/ Ipratropium (Duoneb) 3 ml RTQID NEB Last administered on 01/23/19at 05:39; Start 01/23/19 at 08:00; Stop 01/23/19 at 10:28; Status DC Aspirin (Ecotrin) 81 mg DAILYWBKFT PO Last administered on 01/24/19at 09:43; Start 01/23/19 at 08:00 Benzonatate (Tessalon Perle) 100 mg TID PO Last administered on 01/24/19 09:43; Start 01/23/19 at 09:00 Ferrous Sulfate (Feosol) 325 mg DAILY PO Last administered on 01/24/19at 09:44; Start 01/23/19 at 09:00 Fluticasone Propionate (Flonase) 2 spray DAILY NS Last administered on 01/23/19 09:02; Start 01/23/19 at 09:00 Furosemide (Lasix) 40 mg DAILY PO Last administered on 01/24/19 09:43; Start 01/23/19 at 09:00 Guaifenesin (Robitussin) 200 mg PRN Q4HRS PRN PO COUGH Last administered on 01/23/19 05:22; Start 01/23/19 at 02:15 Lorazepam (Ativan) 1 mg BID PO Last administered on 01/24/19 09:44; Start 01/23/19 at 09:00 Metformin HCl (Glucophage) 500 mg DAILYWBKFT PO Last administered on 01/24/19 09:44; Start 01/23/19 at 08:00 Metoclopramide HCl (Reglan) 5 mg QID PO Last administered on 01/24/19 09:42; Start 01/23/19 at 09:00 Montelukast Sodium (Singulair) 10 mg QHS PO Last administered on 01/23/19 20:36; Start 01/23/19 at 21:00 Polyethylene Glycol (miraLAX PACKET) 17 gm BID PO Last administered on 01/24/19 09:42; Start 01/23/19 at 09:00 Potassium Chloride (Klor-Con) 20 meq DAILY PO Last administered on 01/24/19 09:43; Start 01/23/19 at 09:00 Prednisone (Prednisone) 40 mg DAILY PO Last administered on 01/24/19 09:42; Start 01/23/19 at 09:00 Sodium Chloride (Saline Mist Nasal) 1 angel PRN Q1HR PRN NS NASAL CONGESTION; Start 01/23/19 at 02:15 Tramadol HCl (Ultram) 100 mg PRN Q6HRS PRN PO PAIN Last administered on 01/24/19 03:46; Start 01/23/19 at 02:15 Non-Formulary Medication (Budesonide/ Formoterol Fumarate (Symbicort 160-4.5 Mcg Inhaler)) 2 puff BID IH ; Start 01/23/19 at 09:00; Status UNV Vitamin D (Vitamin D3) 5,000 unit DAILY PO Last administered on 01/24/19 09:43; Start 01/23/19 at 09:00 Pantoprazole Sodium (Protonix) 40 mg DAILYAC PO Last administered on 01/24/19at 09:44; Start 01/23/19 at 07:30 Budesonide (Pulmicort) 0.5 mg RTBID NEB Last administered on 01/24/19at 07:14; Start 01/23/19 at 08:00 Albuterol Sulfate (Ventolin Neb Soln) 2.5 mg RTQID NEB Last administered on 01/23/19at 14:51; Start 01/23/19 at 08:00 Acetaminophen (Tylenol) 650 mg PRN Q4HRS PRN PO TEMP OVER 100.4F OR MILD PAIN; Start 01/23/19 at 13:30 Albuterol Sulfate (Ventolin Neb Soln) 2.5 mg PRN Q2HR PRN NEB SHORTNESS OF BREATH; Start 01/23/19 at 13:30 Albuterol Sulfate (Ventolin Neb Soln) 2.5 mg PRN Q3HRS PRN NEB wheezing; Start 01/23/19 at 13:30 Atorvastatin Calcium (Lipitor) 10 mg HS PO Last administered on 01/23/19at 20:37; Start 01/23/19 at 21:00 Docusate Sodium (Colace) 100 mg DAILY PO Last administered on 01/23/19at 13:34; Start 01/23/19 at 14:00 Ferrous Sulfate (Feosol) 325 mg DAILY PO Last administered on 01/23/19at 13:34; Start 01/23/19 at 14:00 Furosemide (Lasix) 40 mg DAILY PO Last administered on 01/23/19at 13:34; Start 01/23/19 at 14:00 Acetaminophen/ Hydrocodone Bitart (Lortab 10/325) 1 tab PRN Q6HRS PRN PO MODERATE PAIN; Start 01/23/19 at 13:30 Insulin Human Lispro (HumaLOG) TIDWMEALS SQ ; Start 01/23/19 at 17:00 Albuterol/ Ipratropium (Duoneb) 3 ml QID NEB Last administered on 01/24/19at 07:14; Start 01/23/19 at 17:00 Lactobacillus Rhamnosus (Culturelle) 1 cap BID PO Last administered on 01/24/19at 09:43; Start 01/23/19 at 13:30 Lidocaine (Lidoderm) 1 patch DAILY TP Last administered on 01/23/19at 13:34; Start 01/23/19 at 14:00 Al Hydroxide/Mg Hydroxide (Mylanta Plus Xs) 30 ml PRN DAILY PRN PO HEARTBURN / GAS; Start 01/23/19 at 13:30 Tramadol HCl (Ultram) 50 mg PRN Q6HRS PRN PO MILD TO MODERATE PAIN Last administered on 01/23/19at 18:27; Start 01/23/19 at 13:30 Active Scripts Active Proair Hfa Inhaler (Albuterol Sulfate) 8.5 Gm Hfa.aer.ad 2 Puff IH PRN Q4-6HRS PRN 21 Days Prednisone 20 Mg Tablet 2 Tab PO DAILY Mag-Al Plus Xs Suspension (Mag Hydrox/Al Hydrox/Simeth) 30 Ml Oral.susp 30 Ml PO PRN DAILY PRN 10 Days [place] (Sodium Chloride) 44 Ml [place] 1 Angel NS PRN Q1HR PRN 10 Days Doxycycline Hyclate 100 Mg Capsule 1 Cap PO BID Hydrocodone-Apap 10-325 (Hydrocodone Bit/Acetaminophen) 1 Tab Tablet 1 Tab PO PRN Q6HRS PRN Culturelle (Lactobacillus Rhamnosus Gg) 1 Each Cap.sprink 1 Cap PO BID 30 Days Colace (Docusate Sodium) 100 Mg Capsule 100 Mg PO DAILY 30 Days Fluticasone Propionate Nasal [place] (Fluticasone Propionate) 16 Gm [place].susp 2 [place] NS DAILY 30 Days Miralax (Polyethylene Glycol 3350) 119 Gm Powder 17 Gm PO BID Duoneb 0.5-3(2.5) Mg/3 Ml (Albuterol/Ipratropium) 3 Ml Ampul.neb 3 Ml NEB QID Tessalon Perle (Benzonatate) 100 Mg Capsule 1 Cap PO TID Montelukast Sodium Tablet (Montelukast Sodium) 10 Mg Tablet 10 Mg PO QHS Lidocaine PATCH (Lidocaine) 1 Each Adh..patch 1 Each TP DAILY 30 Days REMOVE AFTER 12 HOURS Humalog (Insulin Lispro) 100 Unit/1 Ml Insuln.pen 0 Units SQ TIDWMEALS 30 Days Aspirin Ec (Aspirin) 81 Mg Tablet.dr 81 Mg PO DAILYWBKFT 30 Days Guaifenesin 100 Mg/5 Ml Liquid 200 Mg PO PRN Q4HRS PRN 30 Days Tylenol (Acetaminophen) 325 Mg Tablet 650 Mg PO PRN Q4HRS PRN 10 Days Ventolin Hfa Inhaler (Albuterol Sulfate) 18 Gm Hfa.aer.ad 2 Puff INH Q4HRS Reglan (Metoclopramide Hcl) 10 Mg Tablet 0.5 Tab PO QID 30 Days Reported Tramadol Hcl 50 Mg Tablet 100 Mg PO Q6HRS PRN Lasix (Furosemide) 40 Mg Tablet 1 Tab PO DAILY 30 Days Feosol (Ferrous Sulfate) 325 Mg Tablet 1 Tab PO DAILY 30 Days Tramadol Hcl 50 Mg Tablet 50 Mg PO Q6HRS PRN Prednisone (Prednisone) 10 Mg Tablet 10 Mg PO DAILY Ferrous Sulfate 325 Mg Tablet 325 Mg PO DAILY Ativan (Lorazepam) 1 Mg Tablet 1 Mg PO BID Metformin Hcl 500 Mg Tablet 500 Mg PO DAILYWBKFT Pulmicort (Budesonide) 0.25 Mg/2 Ml Ampul.neb 1 Vial NEB BID Albuterol Sulfate Neb Soln (Albuterol Sulfate) 2.5 Mg/3 Ml Vial.neb 1 Vial NEB PRN Q2HR PRN Furosemide 40 Mg Tablet 1 Tab PO DAILY Vitamin D3 (Cholecalciferol (Vitamin D3)) 5,000 Unit Tablet 5,000 Unit PO DAILY Potassium Chloride (Potassium Chloride) 20 Meq Tablet.er 20 Meq PO DAILY Protonix (Pantoprazole Sodium) 20 Mg Tablet.dr 2 Tab PO DAILY Atorvastatin Calcium 10 Mg Tablet 10 Mg PO HS Symbicort 160-4.5 Mcg Inhaler (Budesonide/Formoterol Fumarate) 10.2 Gm Hfa.aer.ad 2 Puff IH BID Vitals/I & O Vital Sign - Last 24 Hours 01/23/19 01/23/19 01/23/19 01/23/19 11:21 11:30 14:52 15:08 Temp 98.2 98.2 98.2 98.2 Pulse 109 109 Resp 18 18 B/P (MAP) 128/89 (102) 109/64 (79) Pulse Ox 95 100 95 97 O2 Delivery Nasal Cannula Nasal Cannula Nasal Cannula Nasal Cannula O2 Flow Rate 4.0 4.0 3.0 4.0 01/23/19 01/23/19 01/23/19 01/23/19 18:27 19:25 19:27 20:00 Temp 97.7 97.7 Pulse 104 Resp 16 18 B/P (MAP) 108/71 (83) Pulse Ox 97 O2 Delivery Room Air Nasal Cannula Nasal Cannula Nasal Cannula O2 Flow Rate 4.0 3.0 01/23/19 01/23/19 01/24/19 01/24/19 20:40 23:25 03:25 03:46 Temp 97.7 98.1 97.7 98.1 Pulse 89 88 Resp 18 18 B/P (MAP) 134/84 (101) 149/92 (111) Pulse Ox 98 100 100 O2 Delivery Nasal Cannula Nasal Cannula Nasal Cannula Nasal Cannula O2 Flow Rate 3.0 3.0 3.0 01/24/19 01/24/19 01/24/19 01/24/19 04:46 07:00 07:15 08:00 Temp 98.5 98.5 Pulse 82 Resp 20 B/P (MAP) 127/78 (94) Pulse Ox 95 98 O2 Delivery Nasal Cannula Nasal Cannula Nasal Cannula Nasal Cannula O2 Flow Rate 3.0 3.0 3.0 Intake and Output 01/23/19 01/23/19 01/24/19 15:00 23:00 07:00 Intake Total 360 ml 600 ml Output Total 175 ml 500 ml 600 ml Balance -175 ml -140 ml 0 ml TOMAS BAIG MD Jan 24, 2019 11:07
--- NOTE | 2019-01-24 13:20 | CONS ---
DATE OF CONSULTATION: PULMONARY CONSULTATION ATTENDING PHYSICIAN: Dr. Lico Mccormick. REASON FOR CONSULTATION: Respiratory failure. HISTORY OF PRESENT ILLNESS: The patient is a 58-year-old who has end-stage COPD with chronic hypoxic respiratory failure. He is very well known to us. He pretty much lives in the hospital. He was recently discharged and came back with increased shortness of breath. He states that, when he went to his sister's house, the heating was too much. He has a mild cough, no fever, no chills, no chest pains, no headaches, no nausea, vomiting or diarrhea. Currently, he is on his nasal cannula at 3 liters, saturation 97%. PAST MEDICAL HISTORY: History of end-stage COPD with multiple admissions for exacerbation on a weekly basis, history of chronic bronchitis, history of hernia repair, history of bullous lung disease, and osteoporosis. PAST SURGICAL HISTORY: No recent surgeries. ALLERGIES: None. CURRENT MEDICATIONS: Reviewed as listed in the MRAD including DuoNeb. REVIEW OF SYSTEMS: Ten-point system obtained. Pertinent positives discussed in my history of present illness, otherwise noncontributory. All systems that were negative were reviewed as well. FAMILY HISTORY: Noncontributory to lungs. SOCIAL HISTORY: Long history of tobacco use. PHYSICAL EXAMINATION: VITAL SIGNS: Stable. Pulse ox 97% on 3 liters. NECK: Supple. LUNGS: With diminished breath sounds bilaterally. CARDIOVASCULAR: Regular rate. ABDOMEN: Soft, nontender. EXTREMITIES: With no pitting edema. LABORATORY DATA: Reviewed. White cell count 8.0, hemoglobin 10.8 and platelets 165. IMPRESSION: 1. Dyspnea, secondary to recurrent exacerbation of chronic obstructive pulmonary disease. This is a patient who has end-stage chronic obstructive pulmonary disease with chronic hypoxic respiratory failure and is hospitalized on a weekly basis secondary to multiple exacerbations on a regular basis. 2. Abnormal chest x-ray with evidence of bullous lung disease, especially in the left upper lobe. No change. No new infiltrates. 3. Chronic pain syndrome. RECOMMENDATIONS: 1. Discussed with the patient and RN. At this time, I will continue with present oxygen. 2. Continue bronchodilators. 3. Continue oral prednisone. 4. The patient states that he is in the process of being evaluated for lung transplant through [facility]. He said he will be referred to [place]. 5. Alternate treatment option for long-term management would be consideration of lung volume reduction surgery via endobronchial valve therapy. This is currently being offered at [facility]. 6. We will follow along with you. VIN MEAD MD DR: ALTAGRACIA/efrain JOB#: [id number] / [id number] JOHANNE
[2019-01-24 15:00] VITALS: BP 118/76
[2019-01-24 19:18] VITALS: BP 108/71
[2019-01-24] MEDS: ATORVASTATIN CALCIUM 10 MG TABLET. PO SCH (21:17)
[2019-01-24] MEDS: MONTELUKAST SODIUM 10 MG TABLET. PO SCH (21:17)
[2019-01-24 23:44] VITALS: BP 123/70
[2019-01-25] MEDS: traMADol 50 MG TABLET PO PRN ×3 (00:43→16:28)
[2019-01-25 07:00] VITALS: BP 142/99
[2019-01-25] MEDS: INSULIN LISPRO 300 UNITS/3 ML VIAL. SQ SCH ×3 (08:00→16:51)
[2019-01-25] MEDS: IPRATRPIUM/ALBUTEROL 0.5/2.5MG 3 ML NEBU. NEB SCH ×4 (08:12→19:12)
[2019-01-25] MEDS: BUDESONIDE 0.5 MG/2 ML NEBU. NEB SCH ×2 (08:12→19:12)
[2019-01-25] MEDS: FERROUS SULFATE 325 MG TABLET. PO SCH ×2 (08:52→09:00)
[2019-01-25] MEDS: LACTOBACILLUS RHAMNOSUS GG 1 CAPSULE. PO SCH ×2 (08:52→20:47)
[2019-01-25] MEDS: CHOLECALCIFEROL (VITAMIN D3) 5,000 UNIT CAPSULE PO SCH (08:52)
[2019-01-25] MEDS: LORazepam 1 MG TABLET PO SCH ×2 (08:52→20:47)
[2019-01-25] MEDS: POLYETHYLENE GLYCOL 3350 17 GM PACKET. PO SCH ×2 (08:53→20:47)
[2019-01-25] MEDS: metFORMIN 500 MG TABLET PO SCH (08:53)
[2019-01-25] MEDS: BENZONATATE 100 MG CAPSULE. PO SCH ×3 (08:54→20:47)
[2019-01-25] MEDS: DOCUSATE SODIUM 100 MG CAPSULE. PO SCH (08:54)
[2019-01-25] MEDS: PANTOPRAZOLE 40 MG TABLET.DR. PO SCH (08:54)
[2019-01-25] MEDS: POTASSIUM CHLORIDE 20 MEQ TABLET.ER. PO SCH (08:54)
[2019-01-25] MEDS: FUROSEMIDE 40 MG TABLET. PO SCH ×2 (08:55→09:00)
[2019-01-25] MEDS: METOCLOPRAMIDE 10 MG TABLET. PO SCH ×4 (08:55→20:47)
[2019-01-25] MEDS: predniSONE 20 MG TABLET PO SCH (08:55)
[2019-01-25] MEDS: ASPIRIN ENTERIC COATED 81 MG TABLET.DR. PO SCH (08:58)
[2019-01-25] MEDS: FLUTICASONE 50MCG/NASAL SPRAY 16GM BOTTLE. NS SCH (09:00)
[2019-01-25] MEDS: LIDOCAINE (700MG/PATCH) PATCH. TP SCH (09:00)
--- NOTE | 2019-01-25 09:00 | PDOC ---
PULMONARY PROGRESS NOTES Subjective sob better, has cough, on home 02 3 lpm Vitals Vital Signs Date Time Temp Pulse Resp B/P (MAP) Pulse Ox O2 Delivery O2 Flow Rate FiO2 01/25/19 07:00 98.2 95 16 142/99 (113) 100 Nasal Cannula 3.0 98.2 General: Alert, Oriented X4, No acute distress, Mild Distress Lungs: Other (a few end exp wheezing) Cardiovascular: S1, S2 Abdomen: Soft, Non-tender Extremities: Other Skin: Warm Labs Laboratory Tests Test 01/24/19 04:20 White Blood Count 8.0 x10^3/uL (4.0-11.0) Red Blood Count 3.83 x10^6/uL (4.30-5.70) Hemoglobin 10.8 g/dL (13.0-17.5) Hematocrit 33.1 % (39.0-53.0) Mean Corpuscular Volume 86 fL (79-100) Mean Corpuscular Hemoglobin 28 pg (25-35) Mean Corpuscular Hemoglobin Concent 33 g/dL (31-37) Red Cell Distribution Width 24.6 % (11.5-14.5) Platelet Count 165 x10^3/uL (140-400) Neutrophils (%) (Auto) 90 % (31-73) Lymphocytes (%) (Auto) 4 % (24-48) Monocytes (%) (Auto) 6 % (0-9) Eosinophils (%) (Auto) 0 % (0-3) Basophils (%) (Auto) 0 % (0-3) Neutrophils # (Auto) 7.3 x10^3/uL (1.8-7.7) Lymphocytes # (Auto) 0.3 x10^3/uL (1.0-4.8) Monocytes # (Auto) 0.5 x10^3/uL (0.0-1.1) Eosinophils # (Auto) 0.0 x10^3/uL (0.0-0.7) Basophils # (Auto) 0.0 x10^3/uL (0.0-0.2) Sodium Level 138 mmol/L (136-145) Potassium Level 3.9 mmol/L (3.5-5.1) Chloride Level 98 mmol/L (98-107) Carbon Dioxide Level 35 mmol/L (21-32) Anion Gap 5 (6-14) Blood Urea Nitrogen 16 mg/dL (8-26) Creatinine 0.9 mg/dL (0.7-1.3) Estimated GFR (Cockcroft-Gault) 104.5 BUN/Creatinine Ratio 18 (6-20) Glucose Level 89 mg/dL (70-99) Calcium Level 9.1 mg/dL (8.5-10.1) Total Bilirubin 0.3 mg/dL (0.2-1.0) Aspartate Amino Transf (AST/SGOT) 14 U/L (15-37) Alanine Aminotransferase (ALT/SGPT) 20 U/L (16-63) Alkaline Phosphatase 80 U/L (46-116) Total Protein 6.2 g/dL (6.4-8.2) Albumin 3.0 g/dL (3.4-5.0) Albumin/Globulin Ratio 0.9 (1.0-1.7) Medications Active Scripts Medications Dose Route/Sig Max Daily Dose Days Date Category Dose Instructions Tramadol Hcl 50 Mg Tablet 100 Mg PO Q6HRS PRN 01/23/19 Reported Proair Hfa Inhaler (Albuterol Sulfate) 8.5 Gm Hfa.aer.ad 2 Puff IH PRN Q4-6HRS PRN 21 01/17/19 Rx Prednisone 20 Mg Tablet 2 Tab PO DAILY 01/17/19 Rx Lasix (Furosemide) 40 Mg Tablet 1 Tab PO DAILY 30 01/09/19 Reported Feosol (Ferrous Sulfate) 325 Mg Tablet 1 Tab PO DAILY 30 01/09/19 Reported Tramadol Hcl 50 Mg Tablet 50 Mg PO Q6HRS PRN 01/09/19 Reported Mag-Al Plus Xs Suspension (Mag Hydrox/Al Hydrox/Simeth) 30 Ml Oral.susp 30 Ml PO PRN DAILY PRN 10 12/31/18 Rx Deep Sea (Sodium Chloride) 44 Ml [place] 1 Angel NS PRN Q1HR PRN 10 12/31/18 Rx Doxycycline Hyclate 100 Mg Capsule 1 Cap PO BID 12/31/18 Rx Hydrocodone-Apap 10-325 (Hydrocodone Bit/Acetaminophen) 1 Tab Tablet 1 Tab PO PRN Q6HRS PRN 12/22/18 Rx Prednisone (Prednisone) 10 Mg Tablet 10 Mg PO DAILY 12/20/18 Reported Ferrous Sulfate 325 Mg Tablet 325 Mg PO DAILY 12/20/18 Reported Ativan (Lorazepam) 1 Mg Tablet 1 Mg PO BID 12/20/18 Reported Culturelle (Lactobacillus Rhamnosus Gg) 1 Each Cap.sprink 1 Cap PO BID 30 11/11/18 Rx Colace (Docusate Sodium) 100 Mg Capsule 100 Mg PO DAILY 30 11/11/18 Rx Fluticasone Propionate Nasal [place] (Fluticasone Propionate) 16 Gm [place].susp 2 [place] NS DAILY 30 11/11/18 Rx Miralax (Polyethylene Glycol 3350) 119 Gm Powder 17 Gm PO BID 11/03/18 Rx Duoneb 0.5-3(2.5) Mg/3 Ml (Albuterol/Ipratropium) 3 Ml Ampul.neb 3 Ml NEB QID 10/28/18 Rx Tessalon Perle (Benzonatate) 100 Mg Capsule 1 Cap PO TID 10/28/18 Rx Montelukast Sodium Tablet (Montelukast Sodium) 10 Mg Tablet 10 Mg PO QHS 10/28/18 Rx Lidocaine PATCH (Lidocaine) 1 Each Adh..patch 1 Each TP DAILY 09/11/18 Rx REMOVE AFTER 12 HOURS Metformin Hcl 500 Mg Tablet 500 Mg PO DAILYWBKFT 09/09/18 Reported Humalog (Insulin Lispro) 100 Unit/1 Ml Insuln.pen 0 Units SQ TIDWMEALS 08/28/18 Rx Aspirin Ec (Aspirin) 81 Mg Tablet.dr 81 Mg PO DAILYWBKFT 08/28/18 Rx Pulmicort (Budesonide) 0.25 Mg/2 Ml Ampul.neb 1 Vial NEB BID 08/25/18 Reported Albuterol Sulfate Neb Soln (Albuterol Sulfate) 2.5 Mg/3 Ml Vial.neb 1 Vial NEB PRN Q2HR PRN 08/25/18 Reported Furosemide 40 Mg Tablet 1 Tab PO DAILY 06/20/18 Reported Guaifenesin 100 Mg/5 Ml Liquid 200 Mg PO PRN Q4HRS PRN 30 05/30/18 Rx Tylenol (Acetaminophen) 325 Mg Tablet 650 Mg PO PRN Q4HRS PRN 10 05/30/18 Rx Ventolin Hfa Inhaler (Albuterol Sulfate) 18 Gm Hfa.aer.ad 2 Puff INH Q4HRS 05/10/18 Rx Vitamin D3 (Cholecalciferol (Vitamin D3)) 5,000 Unit Tablet 5,000 Unit PO DAILY 03/15/18 Reported Reglan (Metoclopramide Hcl) 10 Mg Tablet 0.5 Tab PO QID 30 02/14/18 Rx Potassium Chloride (Potassium Chloride) 20 Meq Tablet.er 20 Meq PO DAILY 01/13/18 Reported Protonix (Pantoprazole Sodium) 20 Mg Tablet.dr 2 Tab PO DAILY 11/18/17 Reported Atorvastatin Calcium 10 Mg Tablet 10 Mg PO HS 08/21/17 Reported Symbicort 160-4.5 Mcg Inhaler (Budesonide/Formoterol Fumarate) 10.2 Gm Hfa.aer.ad 2 Puff IH BID 09/21/15 Reported Impression . IMPRESSION: 1. Dyspnea, secondary to recurrent exacerbation of chronic obstructive pulmonary disease. This is a patient who has end-stage chronic obstructive pulmonary disease with chronic hypoxic respiratory failure and is hospitalized on a weekly basis secondary to multiple exacerbations on a regular basis. 2. Abnormal chest x-ray with evidence of bullous lung disease, especially in the left upper lobe. No change. No new infiltrates. 3. Chronic pain syndrome. Plan . RECOMMENDATIONS: 1. continue with present oxygen. 2. Continue bronchodilators. 3. Continue oral prednisone. taper as his resp status improves 4. The patient states that he is in the process of being evaluated for lung transplant through [facility]. He said he will be referred to [facility]. 5. Alternate treatment option for long-term management would be consideration of lung volume reduction surgery via endobronchial valve therapy. This [facility] 6. We will follow along with you. katia trammell pt, TAMAR Blue MD Jan 25, 2019 09:00
--- NOTE | 2019-01-25 09:50 | PDOC ---
PROGRESS NOTES History of Present Illness History of Present Illness VTE Prophylaxis Ordered VTE Prophylaxis Devices: No VTE Pharmacological Prophylaxi: Yes Assessment/Plan Assessment/Plan Impression: acute COPD exacerbation PROB ENDSTAGE COPD large left upper lobe bullous. Otherwise moderate emphysematous changes elsewhere. Mild right apical subpleural fibrosis. Bilateral linear opacities likely related to atelectasis versus scarring. acute on chronic resp failure CHF Approximate 40 percent T8 vertebral body height loss is new from 09/08/2018 exam. states that he is in the process of being evaluated for lung transplant through [facility]. He said he will be referred to [place]. ADMITTED TELE O2 SUPPORT PULM CONSULT HOME MEDS TAPERING po STEROIDS 40 mg prednisone CHRONIC PAIN PT/OT Vitals Vitals Vital Signs Date Time Temp Pulse Resp B/P (MAP) Pulse Ox O2 Delivery O2 Flow Rate FiO2 01/25/19 09:00 99 Nasal Cannula 3.5 01/25/19 07:00 98.2 95 16 142/99 (113) 98.2 Physical Exam General: Alert, Oriented X3, Cooperative, mild distress Heart: Regular rate Lungs: Other (a few end exp wheezing) Abdomen: Normal bowel sounds, Soft Extremities: No cyanosis Labs LABS Study: PORTABLE CHEST 1V Indication: Shortness of breath. Comparison: 01/17/2019 Findings: Unchanged asymmetric lucency of the left lung relative to the right. Unchanged configuration of the cardiomediastinal silhouette and maye. No newly seen abnormality throughout the right lung or basilar aspect of the left lung. Impression: Bullous emphysematous changes of the left more so than right lungs. No superimposed acute abnormality has developed since 01/17/2019. Electronically signed by: AMNA ARCHIBALD MD (01/22/2019 11:02 PM) [facility] [id number] DICTATED and SIGNED BY: AMNA ARCHIBALD MD DATE: 01/22/19 2301 Neb Treatment Type * Hand Held Neb Neb Treatment Mode * Mouthpiece Neb Tx Comments * pulmicot given Pulse * 98 beats/min Respirations * 18 breaths/min Respiratory Pattern * Regular Work of Breathing * No Distress Breath Sounds * Decreased * Crackles Lung Location * Bilateral Cough Description * None Oxygen Flow Rate * 3.5 Lpm Oxygen Delivery Method * Nasal Cannula Bedside Pulse Oximetry * 99 % Comment Review of Relevant I have reviewed the following items franki (where applicable) has been applied. Labs Laboratory Tests Test 12/13/19 04:20 White Blood Count 8.0 x10^3/uL (4.0-11.0) Red Blood Count 3.83 x10^6/uL (4.30-5.70) Hemoglobin 10.8 g/dL (13.0-17.5) Hematocrit 33.1 % (39.0-53.0) Mean Corpuscular Volume 86 fL (79-100) Mean Corpuscular Hemoglobin 28 pg (25-35) Mean Corpuscular Hemoglobin Concent 33 g/dL (31-37) Red Cell Distribution Width 24.6 % (11.5-14.5) Platelet Count 165 x10^3/uL (140-400) Neutrophils (%) (Auto) 90 % (31-73) Lymphocytes (%) (Auto) 4 % (24-48) Monocytes (%) (Auto) 6 % (0-9) Eosinophils (%) (Auto) 0 % (0-3) Basophils (%) (Auto) 0 % (0-3) Neutrophils # (Auto) 7.3 x10^3/uL (1.8-7.7) Lymphocytes # (Auto) 0.3 x10^3/uL (1.0-4.8) Monocytes # (Auto) 0.5 x10^3/uL (0.0-1.1) Eosinophils # (Auto) 0.0 x10^3/uL (0.0-0.7) Basophils # (Auto) 0.0 x10^3/uL (0.0-0.2) Sodium Level 138 mmol/L (136-145) Potassium Level 3.9 mmol/L (3.5-5.1) Chloride Level 98 mmol/L (98-107) Carbon Dioxide Level 35 mmol/L (21-32) Anion Gap 5 (6-14) Blood Urea Nitrogen 16 mg/dL (8-26) Creatinine 0.9 mg/dL (0.7-1.3) Estimated GFR (Cockcroft-Gault) 104.5 BUN/Creatinine Ratio 18 (6-20) Glucose Level 89 mg/dL (70-99) Calcium Level 9.1 mg/dL (8.5-10.1) Total Bilirubin 0.3 mg/dL (0.2-1.0) Aspartate Amino Transf (AST/SGOT) 14 U/L (15-37) Alanine Aminotransferase (ALT/SGPT) 20 U/L (16-63) Alkaline Phosphatase 80 U/L (46-116) Total Protein 6.2 g/dL (6.4-8.2) Albumin 3.0 g/dL (3.4-5.0) Albumin/Globulin Ratio 0.9 (1.0-1.7) Medications Current Medications Albuterol/ Ipratropium (Duoneb) 3 ml STK-MED ONCE .ROUTE ; Start 01/22/19 at 22:28; Stop 01/22/19 at 22:28; Status DC Albuterol/ Ipratropium (Duoneb) 3 ml 1X ONCE NEB Last administered on 01/22/19at 22:32; Start 01/22/19 at 22:30; Stop 01/22/19 at 22:31; Status DC Methylprednisolone Sodium Succinate (SOLU-Medrol 125MG VIAL) 125 mg 1X ONCE IV Last administered on 01/22/19at 22:48; Start 01/22/19 at 22:30; Stop 01/22/19 at 22:32; Status DC Ondansetron HCl (Zofran) 4 mg PRN Q8HRS PRN IV NAUSEA/VOMITING; Start 01/23/19 at 00:30; Stop 01/24/19 at 00:29; Status DC Acetaminophen (Tylenol) 650 mg PRN Q4HRS PRN PO FEVER; Start 01/23/19 at 00:30; Stop 01/24/19 at 00:29; Status DC Albuterol/ Ipratropium (Duoneb) 3 ml RTQID NEB Last administered on 01/23/19at 05:39; Start 01/23/19 at 08:00; Stop 01/23/19 at 10:28; Status DC Aspirin (Ecotrin) 81 mg DAILYWBKFT PO Last administered on 01/25/19at 08:58; Start 01/23/19 at 08:00 Benzonatate (Tessalon Perle) 100 mg TID PO Last administered on 01/25/19at 08:54; Start 01/23/19 at 09:00 Ferrous Sulfate (Feosol) 325 mg DAILY PO Last administered on 01/25/19at 08:52; Start 01/23/19 at 09:00 Fluticasone Propionate (Flonase) 2 spray DAILY NS Last administered on 01/23/19 09:02; Start 01/23/19 at 09:00 Furosemide (Lasix) 40 mg DAILY PO Last administered on 01/25/19 08:55; Start 01/23/19 at 09:00 Guaifenesin (Robitussin) 200 mg PRN Q4HRS PRN PO COUGH Last administered on 01/23/19 05:22; Start 01/23/19 at 02:15 Lorazepam (Ativan) 1 mg BID PO Last administered on 01/25/19 08:52; Start 01/23/19 at 09:00 Metformin HCl (Glucophage) 500 mg DAILYWBKFT PO Last administered on 01/25/19 08:53; Start 01/23/19 at 08:00 Metoclopramide HCl (Reglan) 5 mg QID PO Last administered on 01/25/19 08:55; Start 01/23/19 at 09:00 Montelukast Sodium (Singulair) 10 mg QHS PO Last administered on 01/24/19 21:17; Start 01/23/19 at 21:00 Polyethylene Glycol (miraLAX PACKET) 17 gm BID PO Last administered on 01/25/19 08:53; Start 01/23/19 at 09:00 Potassium Chloride (Klor-Con) 20 meq DAILY PO Last administered on 01/25/19 08:54; Start 01/23/19 at 09:00 Prednisone (Prednisone) 40 mg DAILY PO Last administered on 01/25/19 08:55; Start 01/23/19 at 09:00 Sodium Chloride (Saline Mist Nasal) 1 angel PRN Q1HR PRN NS NASAL CONGESTION; Start 01/23/19 at 02:15 Tramadol HCl (Ultram) 100 mg PRN Q6HRS PRN PO PAIN Last administered on 01/25/19 08:54; Start 01/23/19 at 02:15 Non-Formulary Medication (Budesonide/ Formoterol Fumarate (Symbicort 160-4.5 Mcg Inhaler)) 2 puff BID IH ; Start 01/23/19 at 09:00; Status UNV Vitamin D (Vitamin D3) 5,000 unit DAILY PO Last administered on 01/25/19 08:52; Start 01/23/19 at 09:00 Pantoprazole Sodium (Protonix) 40 mg DAILYAC PO Last administered on 01/25/19 08:54; Start 01/23/19 at 07:30 Budesonide (Pulmicort) 0.5 mg RTBID NEB Last administered on 01/25/19at 08:12; Start 01/23/19 at 08:00 Albuterol Sulfate (Ventolin Neb Soln) 2.5 mg RTQID NEB Last administered on 01/23/19at 14:51; Start 01/23/19 at 08:00; Stop 01/24/19 at 14:29; Status DC Acetaminophen (Tylenol) 650 mg PRN Q4HRS PRN PO TEMP OVER 100.4F OR MILD PAIN; Start 01/23/19 at 13:30; Stop 01/24/19 at 14:28; Status DC Albuterol Sulfate (Ventolin Neb Soln) 2.5 mg PRN Q2HR PRN NEB SHORTNESS OF BREATH; Start 01/23/19 at 13:30 Albuterol Sulfate (Ventolin Neb Soln) 2.5 mg PRN Q3HRS PRN NEB wheezing; Start 01/23/19 at 13:30 Atorvastatin Calcium (Lipitor) 10 mg HS PO Last administered on 01/24/19at 21:17; Start 01/23/19 at 21:00 Docusate Sodium (Colace) 100 mg DAILY PO Last administered on 01/25/19 08:54; Start 01/23/19 at 14:00 Ferrous Sulfate (Feosol) 325 mg DAILY PO Last administered on 01/23/19at 13:34; Start 01/23/19 at 14:00 Furosemide (Lasix) 40 mg DAILY PO Last administered on 01/23/19at 13:34; Start 01/23/19 at 14:00 Acetaminophen/ Hydrocodone Bitart (Lortab 10/325) 1 tab PRN Q6HRS PRN PO MODERATE PAIN; Start 01/23/19 at 13:30 Insulin Human Lispro (HumaLOG) TIDWMEALS SQ ; Start 01/23/19 at 17:00 Albuterol/ Ipratropium (Duoneb) 3 ml QID NEB Last administered on 01/25/19at 08:12; Start 01/23/19 at 17:00 Lactobacillus Rhamnosus (Culturelle) 1 cap BID PO Last administered on 08:52; Start 01/23/19 at 13:30 Lidocaine (Lidoderm) 1 patch DAILY TP Last administered on 01/23/19at 13:34; Start 01/23/19 at 14:00 Al Hydroxide/Mg Hydroxide (Mylanta Plus Xs) 30 ml PRN DAILY PRN PO HEARTBURN / GAS; Start 01/23/19 at 13:30 Tramadol HCl (Ultram) 50 mg PRN Q6HRS PRN PO MILD TO MODERATE PAIN Last administered on 01/23/19at 18:27; Start 01/23/19 at 13:30 Active Scripts Active Proair Hfa Inhaler (Albuterol Sulfate) 8.5 Gm Hfa.aer.ad 2 Puff IH PRN Q4-6HRS PRN 21 Days Prednisone 20 Mg Tablet 2 Tab PO DAILY Mag-Al Plus Xs Suspension (Mag Hydrox/Al Hydrox/Simeth) 30 Ml Oral.susp 30 Ml PO PRN DAILY PRN 10 Days Deep Sea (Sodium Chloride) 44 Ml [place] 1 Angel NS PRN Q1HR PRN 10 Days Doxycycline Hyclate 100 Mg Capsule 1 Cap PO BID Hydrocodone-Apap 10-325 (Hydrocodone Bit/Acetaminophen) 1 Tab Tablet 1 Tab PO PRN Q6HRS PRN Culturelle (Lactobacillus Rhamnosus Gg) 1 Each Cap.sprink 1 Cap PO BID 30 Days Colace (Docusate Sodium) 100 Mg Capsule 100 Mg PO DAILY 30 Days Fluticasone Propionate Nasal [place] (Fluticasone Propionate) 16 Gm [place].susp 2 [place] NS DAILY 30 Days Miralax (Polyethylene Glycol 3350) 119 Gm Powder 17 Gm PO BID Duoneb 0.5-3(2.5) Mg/3 Ml (Albuterol/Ipratropium) 3 Ml Ampul.neb 3 Ml NEB QID Tessalon Perle (Benzonatate) 100 Mg Capsule 1 Cap PO TID Montelukast Sodium Tablet (Montelukast Sodium) 10 Mg Tablet 10 Mg PO QHS Lidocaine PATCH (Lidocaine) 1 Each Adh..patch 1 Each TP DAILY 30 Days REMOVE AFTER 12 HOURS Humalog (Insulin Lispro) 100 Unit/1 Ml Insuln.pen 0 Units SQ TIDWMEALS 30 Days Aspirin Ec (Aspirin) 81 Mg Tablet.dr 81 Mg PO DAILYWBKFT 30 Days Guaifenesin 100 Mg/5 Ml Liquid 200 Mg PO PRN Q4HRS PRN 30 Days Tylenol (Acetaminophen) 325 Mg Tablet 650 Mg PO PRN Q4HRS PRN 10 Days Ventolin Hfa Inhaler (Albuterol Sulfate) 18 Gm Hfa.aer.ad 2 Puff INH Q4HRS Reglan (Metoclopramide Hcl) 10 Mg Tablet 0.5 Tab PO QID 30 Days Reported Tramadol Hcl 50 Mg Tablet 100 Mg PO Q6HRS PRN Lasix (Furosemide) 40 Mg Tablet 1 Tab PO DAILY 30 Days Feosol (Ferrous Sulfate) 325 Mg Tablet 1 Tab PO DAILY 30 Days Tramadol Hcl 50 Mg Tablet 50 Mg PO Q6HRS PRN Prednisone (Prednisone) 10 Mg Tablet 10 Mg PO DAILY Ferrous Sulfate 325 Mg Tablet 325 Mg PO DAILY Ativan (Lorazepam) 1 Mg Tablet 1 Mg PO BID Metformin Hcl 500 Mg Tablet 500 Mg PO DAILYWBKFT Pulmicort (Budesonide) 0.25 Mg/2 Ml Ampul.neb 1 Vial NEB BID Albuterol Sulfate Neb Soln (Albuterol Sulfate) 2.5 Mg/3 Ml Vial.neb 1 Vial NEB PRN Q2HR PRN Furosemide 40 Mg Tablet 1 Tab PO DAILY Vitamin D3 (Cholecalciferol (Vitamin D3)) 5,000 Unit Tablet 5,000 Unit PO DAILY Potassium Chloride (Potassium Chloride) 20 Meq Tablet.er 20 Meq PO DAILY Protonix (Pantoprazole Sodium) 20 Mg Tablet.dr 2 Tab PO DAILY Atorvastatin Calcium 10 Mg Tablet 10 Mg PO HS Symbicort 160-4.5 Mcg Inhaler (Budesonide/Formoterol Fumarate) 10.2 Gm Hfa.aer.ad 2 Puff IH BID Vitals/I & O Vital Sign - Last 24 Hours 01/24/19 01/24/19 01/24/19 01/24/19 11:00 11:07 15:00 17:10 Temp 98.1 98.7 98.1 98.7 Pulse 98 99 Resp 16 20 B/P (MAP) 114/71 (85) 118/76 (90) Pulse Ox 94 97 99 97 O2 Delivery Nasal Cannula Nasal Cannula Nasal Cannula Nasal Cannula O2 Flow Rate 3.0 3.0 3.0 3.0 01/24/19 01/24/19 01/24/19 01/24/19 18:08 19:08 19:18 19:56 Temp 98.0 98.0 Pulse 102 Resp 18 B/P (MAP) 108/71 (83) Pulse Ox 99 99 O2 Delivery Nasal Cannula Nasal Cannula Nasal Cannula Nasal Cannula O2 Flow Rate 3.0 3.5 01/24/19 01/24/19 01/25/19 01/25/19 20:00 23:44 00:43 01:43 Temp 98.3 98.3 Pulse 108 Resp 20 B/P (MAP) 123/70 (87) Pulse Ox 98 O2 Delivery Nasal Cannula Nasal Cannula Room Air Room Air O2 Flow Rate 3.5 3.0 01/25/19 01/25/19 01/25/19 01/25/19 03:52 07:00 08:54 08:59 Temp 98.2 98.2 Pulse 85 95 Resp 20 16 B/P (MAP) 142/99 (113) Pulse Ox 100 99 O2 Delivery Nasal Cannula Nasal Cannula Nasal Cannula Nasal Cannula O2 Flow Rate 3.0 3.5 01/25/19 09:00 Pulse Ox 99 O2 Delivery Nasal Cannula O2 Flow Rate 3.5 Intake and Output 01/24/19 01/24/19 01/25/19 15:00 23:00 07:00 Intake Total 250 ml 450 ml Output Total 1000 ml Balance -1000 ml 250 ml 450 ml TOMAS BAIG MD Jan 25, 2019 09:50
[2019-01-25 11:00] VITALS: BP 111/76
--- NOTE | 2019-01-25 11:56 | EKG ---
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
[2019-01-25 15:00] VITALS: BP 119/78
[2019-01-25] MEDS ORDERED: ALPRAZolam 0.5 MG TABLET PO ONE (16:30)
[2019-01-25 17:13] LABS: BASE EXCESS ABG 3 mmol/L (-3-3); FIO2 ABG 32; HCO3 ABG 29 mmol/L (21-28); PCO2 ABG 47 mmHg (35-46); PO2 ABG 87 mmHg (65-108); SAT O2 ABG 96 % (92-99)
[2019-01-25 20:00] VITALS: BP 128/83
[2019-01-25] MEDS: ATORVASTATIN CALCIUM 10 MG TABLET. PO SCH (20:47)
[2019-01-25] MEDS: MONTELUKAST SODIUM 10 MG TABLET. PO SCH (20:47)
[2019-01-25 22:49] VITALS: BP 144/92
[2019-01-26 02:48] VITALS: BP 133/79
[2019-01-26 07:00] VITALS: BP 134/92
[2019-01-26] MEDS: ASPIRIN ENTERIC COATED 81 MG TABLET.DR. PO SCH (07:51)
[2019-01-26] MEDS: METOCLOPRAMIDE 10 MG TABLET. PO SCH ×4 (07:51→20:42)
[2019-01-26] MEDS: FERROUS SULFATE 325 MG TABLET. PO SCH ×2 (07:51→07:53)
[2019-01-26] MEDS: metFORMIN 500 MG TABLET PO SCH (07:51)
[2019-01-26] MEDS: PANTOPRAZOLE 40 MG TABLET.DR. PO SCH (07:51)
[2019-01-26] MEDS: FUROSEMIDE 40 MG TABLET. PO SCH ×2 (07:51→07:52)
[2019-01-26] MEDS: LACTOBACILLUS RHAMNOSUS GG 1 CAPSULE. PO SCH ×2 (07:51→20:42)
[2019-01-26] MEDS: BENZONATATE 100 MG CAPSULE. PO SCH ×3 (07:51→20:42)
[2019-01-26] MEDS: CHOLECALCIFEROL (VITAMIN D3) 5,000 UNIT CAPSULE PO SCH (07:52)
[2019-01-26] MEDS: predniSONE 20 MG TABLET PO SCH (07:52)
[2019-01-26] MEDS: DOCUSATE SODIUM 100 MG CAPSULE. PO SCH (07:52)
[2019-01-26] MEDS: LORazepam 1 MG TABLET PO SCH ×2 (07:52→20:42)
[2019-01-26] MEDS: traMADol 50 MG TABLET PO PRN ×3 (07:52→20:43)
[2019-01-26] MEDS: POLYETHYLENE GLYCOL 3350 17 GM PACKET. PO SCH ×2 (07:52→20:43)
[2019-01-26] MEDS: POTASSIUM CHLORIDE 20 MEQ TABLET.ER. PO SCH (07:53)
[2019-01-26] MEDS: LIDOCAINE (700MG/PATCH) PATCH. TP SCH (07:53)
[2019-01-26] MEDS: IPRATRPIUM/ALBUTEROL 0.5/2.5MG 3 ML NEBU. NEB SCH ×4 (08:07→19:50)
[2019-01-26] MEDS: BUDESONIDE 0.5 MG/2 ML NEBU. NEB SCH ×2 (08:07→19:50)
[2019-01-26] MEDS: FLUTICASONE 50MCG/NASAL SPRAY 16GM BOTTLE. NS SCH (09:00)
--- NOTE | 2019-01-26 09:24 | PDOC ---
PULMONARY PROGRESS NOTES Subjective sob better, has cough, better, on home 02 3 lpm Vitals Vital Signs Date Time Temp Pulse Resp B/P (MAP) Pulse Ox O2 Delivery O2 Flow Rate FiO2 01/26/19 08:15 97 Nasal Cannula 3.5 01/26/19 07:00 98.5 81 16 134/92 (106) 98.5 General: Alert, Oriented X4, No acute distress, Mild Distress Lungs: Other (deminishe bs) Cardiovascular: S1, S2 Abdomen: Soft, Non-tender Extremities: Other Skin: Warm Labs Laboratory Tests Test 01/25/19 17:10 O2 Saturation 96 % (92-99) Arterial Blood pH 7.41 (7.35-7.45) Arterial Blood pCO2 at Patient Temp 47 mmHg (35-46) Arterial Blood pO2 at Patient Temp 87 mmHg (65-108) Arterial Blood HCO3 29 mmol/L (21-28) Arterial Blood Base Excess 3 mmol/L (-3-3) FiO2 32 Laboratory Tests Test 01/25/19 17:10 O2 Saturation 96 % (92-99) Arterial Blood pH 7.41 (7.35-7.45) Arterial Blood pCO2 at Patient Temp 47 mmHg (35-46) Arterial Blood pO2 at Patient Temp 87 mmHg (65-108) Arterial Blood HCO3 29 mmol/L (21-28) Arterial Blood Base Excess 3 mmol/L (-3-3) FiO2 32 Medications Active Scripts Medications Dose Route/Sig Max Daily Dose Days Date Category Dose Instructions Tramadol Hcl 50 Mg Tablet 100 Mg PO Q6HRS PRN 01/23/19 Reported Proair Hfa Inhaler (Albuterol Sulfate) 8.5 Gm Hfa.aer.ad 2 Puff IH PRN Q4-6HRS PRN 21 01/17/19 Rx Prednisone 20 Mg Tablet 2 Tab PO DAILY 01/17/19 Rx Lasix (Furosemide) 40 Mg Tablet 1 Tab PO DAILY 30 01/09/19 Reported Feosol (Ferrous Sulfate) 325 Mg Tablet 1 Tab PO DAILY 30 01/09/19 Reported Tramadol Hcl 50 Mg Tablet 50 Mg PO Q6HRS PRN 01/09/19 Reported Mag-Al Plus Xs Suspension (Mag Hydrox/Al Hydrox/Simeth) 30 Ml Oral.susp 30 Ml PO PRN DAILY PRN 10 12/31/18 Rx Deep Sea (Sodium Chloride) 44 Ml [place] 1 Angel NS PRN Q1HR PRN 10 12/31/18 Rx Doxycycline Hyclate 100 Mg Capsule 1 Cap PO BID 12/31/18 Rx Hydrocodone-Apap 10-325 (Hydrocodone Bit/Acetaminophen) 1 Tab Tablet 1 Tab PO PRN Q6HRS PRN 12/22/18 Rx Prednisone (Prednisone) 10 Mg Tablet 10 Mg PO DAILY 12/20/18 Reported Ferrous Sulfate 325 Mg Tablet 325 Mg PO DAILY 12/20/18 Reported Ativan (Lorazepam) 1 Mg Tablet 1 Mg PO BID 12/20/18 Reported Culturelle (Lactobacillus Rhamnosus Gg) 1 Each Cap.sprink 1 Cap PO BID 30 11/11/18 Rx Colace (Docusate Sodium) 100 Mg Capsule 100 Mg PO DAILY 30 11/11/18 Rx Fluticasone Propionate Nasal [place] (Fluticasone Propionate) 16 Gm [place].susp 2 [place] NS DAILY 30 11/11/18 Rx Miralax (Polyethylene Glycol 3350) 119 Gm Powder 17 Gm PO BID 11/03/18 Rx Duoneb 0.5-3(2.5) Mg/3 Ml (Albuterol/Ipratropium) 3 Ml Ampul.neb 3 Ml NEB QID 10/28/18 Rx Tessalon Perle (Benzonatate) 100 Mg Capsule 1 Cap PO TID 10/28/18 Rx Montelukast Sodium Tablet (Montelukast Sodium) 10 Mg Tablet 10 Mg PO QHS 10/28/18 Rx Lidocaine PATCH (Lidocaine) 1 Each Adh..patch 1 Each TP DAILY 09/11/18 Rx REMOVE AFTER 12 HOURS Metformin Hcl 500 Mg Tablet 500 Mg PO DAILYWBKFT 09/09/18 Reported Humalog (Insulin Lispro) 100 Unit/1 Ml Insuln.pen 0 Units SQ TIDWMEALS 08/28/18 Rx Aspirin Ec (Aspirin) 81 Mg Tablet.dr 81 Mg PO DAILYWBKFT 08/28/18 Rx Pulmicort (Budesonide) 0.25 Mg/2 Ml Ampul.neb 1 Vial NEB BID 08/25/18 Reported Albuterol Sulfate Neb Soln (Albuterol Sulfate) 2.5 Mg/3 Ml Vial.neb 1 Vial NEB PRN Q2HR PRN 08/25/18 Reported Furosemide 40 Mg Tablet 1 Tab PO DAILY 06/20/18 Reported Guaifenesin 100 Mg/5 Ml Liquid 200 Mg PO PRN Q4HRS PRN 30 05/30/18 Rx Tylenol (Acetaminophen) 325 Mg Tablet 650 Mg PO PRN Q4HRS PRN 10 05/30/18 Rx Ventolin Hfa Inhaler (Albuterol Sulfate) 18 Gm Hfa.aer.ad 2 Puff INH Q4HRS 05/10/18 Rx Vitamin D3 (Cholecalciferol (Vitamin D3)) 5,000 Unit Tablet 5,000 Unit PO DAILY 03/15/18 Reported Reglan (Metoclopramide Hcl) 10 Mg Tablet 0.5 Tab PO QID 30 02/14/18 Rx Potassium Chloride (Potassium Chloride) 20 Meq Tablet.er 20 Meq PO DAILY 01/13/18 Reported Protonix (Pantoprazole Sodium) 20 Mg Tablet.dr 2 Tab PO DAILY 11/18/17 Reported Atorvastatin Calcium 10 Mg Tablet 10 Mg PO HS 08/21/17 Reported Symbicort 160-4.5 Mcg Inhaler (Budesonide/Formoterol Fumarate) 10.2 Gm Hfa.aer.ad 2 Puff IH BID 09/21/15 Reported Impression . IMPRESSION: 1. Dyspnea, secondary to recurrent exacerbation of chronic obstructive pulmonary disease. This is a patient who has end-stage chronic obstructive pulmonary disease with chronic hypoxic respiratory failure and is hospitalized on a weekly basis secondary to multiple exacerbations on a regular basis. 2. Abnormal chest x-ray with evidence of bullous lung disease, especially in the left upper lobe. No change. No new infiltrates. 3. Chronic pain syndrome. Plan . RECOMMENDATIONS: 1. continue with present oxygen. 2. Continue bronchodilators. 3. Continue oral prednisone. taper as his resp status improves 4. The patient states that he is in the process of being evaluated for lung transplant through [facility]. He said he will be referred to [place]. 5. Alternate treatment option for long-term management would be consideration of lung volume reduction surgery via endobronchial valve therapy. This is currently being offered at [facility]. 6. We will follow along with you. katia trammell pt, TAMAR Blue MD Jan 26, 2019 09:23
[2019-01-26 11:00] VITALS: BP 133/90
--- NOTE | 2019-01-26 11:13 | PDOC ---
PROGRESS NOTES History of Present Illness History of Present Illness VTE Prophylaxis Ordered VTE Prophylaxis Devices: No VTE Pharmacological Prophylaxi: Yes Assessment/Plan Assessment/Plan Impression: acute COPD exacerbation PROB ENDSTAGE COPD large left upper lobe bullous. Otherwise moderate emphysematous changes elsewhere. Mild right apical subpleural fibrosis. Bilateral linear opacities likely related to atelectasis versus scarring. acute on chronic resp failure CHF Approximate 40 percent T8 vertebral body height loss is new from 09/08/2018 exam. states that he is in the process of being evaluated for lung transplant through [facility]. He said he will be referred to [facility]. 01/26, VERY ANXIOUS OVERNIGHT, RESPONDED WELL TO XANAX PRN PO ADMITTED TELE O2 SUPPORT PULM CONSULT HOME MEDS TAPERING po STEROIDS 40 mg prednisone CHRONIC PAIN PT/OT 27 MIN PT EXAM, CHART REVIEW, > 50% OF TIME SPENT WITH EXAM, CHART REVIEW, PT CARE COORDINATION Vitals Vitals Vital Signs Date Time Temp Pulse Resp B/P (MAP) Pulse Ox O2 Delivery O2 Flow Rate FiO2 01/26/19 08:52 Nasal Cannula 01/26/19 08:15 97 3.5 01/26/19 07:00 98.5 81 16 134/92 (106) 98.5 Physical Exam General: Alert, Oriented X3, Cooperative, mild distress Heart: Regular rate Lungs: Other (a few end exp wheezing) Abdomen: Normal bowel sounds, Soft Extremities: No cyanosis Labs LABS Laboratory Tests Test 01/25/19 17:10 O2 Saturation 96 % (92-99) Arterial Blood pH 7.41 (7.35-7.45) Arterial Blood pCO2 at Patient Temp 47 mmHg (35-46) Arterial Blood pO2 at Patient Temp 87 mmHg (65-108) Arterial Blood HCO3 29 mmol/L (21-28) Arterial Blood Base Excess 3 mmol/L (-3-3) FiO2 32 Comment Review of Relevant I have reviewed the following items franki (where applicable) has been applied. Labs Laboratory Tests Test 01/25/19 17:10 O2 Saturation 96 % (92-99) Arterial Blood pH 7.41 (7.35-7.45) Arterial Blood pCO2 at Patient Temp 47 mmHg (35-46) Arterial Blood pO2 at Patient Temp 87 mmHg (65-108) Arterial Blood HCO3 29 mmol/L (21-28) Arterial Blood Base Excess 3 mmol/L (-3-3) FiO2 32 Laboratory Tests Test 01/25/19 17:10 O2 Saturation 96 % (92-99) Arterial Blood pH 7.41 (7.35-7.45) Arterial Blood pCO2 at Patient Temp 47 mmHg (35-46) Arterial Blood pO2 at Patient Temp 87 mmHg (65-108) Arterial Blood HCO3 29 mmol/L (21-28) Arterial Blood Base Excess 3 mmol/L (-3-3) FiO2 32 Medications Current Medications Albuterol/ Ipratropium (Duoneb) 3 ml STK-MED ONCE .ROUTE ; Start 01/22/19 at 22:28; Stop 01/22/19 at 22:28; Status DC Albuterol/ Ipratropium (Duoneb) 3 ml 1X ONCE NEB Last administered on 01/22/19at 22:32; Start 01/22/19 at 22:30; Stop 01/22/19 at 22:31; Status DC Methylprednisolone Sodium Succinate (SOLU-Medrol 125MG VIAL) 125 mg 1X ONCE IV Last administered on 01/22/19at 22:48; Start 01/22/19 at 22:30; Stop 01/22/19 at 22:32; Status DC Ondansetron HCl (Zofran) 4 mg PRN Q8HRS PRN IV NAUSEA/VOMITING; Start 01/23/19 at 00:30; Stop 01/24/19 at 00:29; Status DC Acetaminophen (Tylenol) 650 mg PRN Q4HRS PRN PO FEVER; Start 01/23/19 at 00:30; Stop 01/24/19 at 00:29; Status DC Albuterol/ Ipratropium (Duoneb) 3 ml RTQID NEB Last administered on 01/23/19at 05:39; Start 01/23/19 at 08:00; Stop 01/23/19 at 10:28; Status DC Aspirin (Ecotrin) 81 mg DAILYWBKFT PO Last administered on 01/26/19at 07:51; Start 01/23/19 at 08:00 Benzonatate (Tessalon Perle) 100 mg TID PO Last administered on 01/26/19at 07:51; Start 01/23/19 at 09:00 Ferrous Sulfate (Feosol) 325 mg DAILY PO Last administered on 01/26/19at 07:51; Start 01/23/19 at 09:00 Fluticasone Propionate (Flonase) 2 spray DAILY NS Last administered on 01/23/19 09:02; Start 01/23/19 at 09:00 Furosemide (Lasix) 40 mg DAILY PO Last administered on 01/26/19 07:51; Start 01/23/19 at 09:00 Guaifenesin (Robitussin) 200 mg PRN Q4HRS PRN PO COUGH Last administered on 01/23/19 05:22; Start 01/23/19 at 02:15 Lorazepam (Ativan) 1 mg BID PO Last administered on 01/26/19 07:52; Start 01/23/19 at 09:00 Metformin HCl (Glucophage) 500 mg DAILYWBKFT PO Last administered on 01/26/19 07:51; Start 01/23/19 at 08:00 Metoclopramide HCl (Reglan) 5 mg QID PO Last administered on 01/26/19 07:51; Start 01/23/19 at 09:00 Montelukast Sodium (Singulair) 10 mg QHS PO Last administered on 01/25/19 20:47; Start 01/23/19 at 21:00 Polyethylene Glycol (miraLAX PACKET) 17 gm BID PO Last administered on 01/26/19 07:52; Start 01/23/19 at 09:00 Potassium Chloride (Klor-Con) 20 meq DAILY PO Last administered on 01/26/19 07:53; Start 01/23/19 at 09:00 Prednisone (Prednisone) 40 mg DAILY PO Last administered on 01/26/19 07:52; Start 01/23/19 at 09:00 Sodium Chloride (Saline Mist Nasal) 1 angel PRN Q1HR PRN NS NASAL CONGESTION; Start 01/23/19 at 02:15 Tramadol HCl (Ultram) 100 mg PRN Q6HRS PRN PO PAIN Last administered on 01/26/19 07:52; Start 01/23/19 at 02:15 Non-Formulary Medication (Budesonide/ Formoterol Fumarate (Symbicort 160-4.5 Mcg Inhaler)) 2 puff BID IH ; Start 01/23/19 at 09:00; Status UNV Vitamin D (Vitamin D3) 5,000 unit DAILY PO Last administered on 01/26/19at 07:52; Start 01/23/19 at 09:00 Pantoprazole Sodium (Protonix) 40 mg DAILYAC PO Last administered on 01/26/19at 07:51; Start 01/23/19 at 07:30 Budesonide (Pulmicort) 0.5 mg RTBID NEB Last administered on 01/26/19at 08:07; Start 01/23/19 at 08:00 Albuterol Sulfate (Ventolin Neb Soln) 2.5 mg RTQID NEB Last administered on 01/23/19at 14:51; Start 01/23/19 at 08:00; Stop 01/24/19 at 14:29; Status DC Acetaminophen (Tylenol) 650 mg PRN Q4HRS PRN PO TEMP OVER 100.4F OR MILD PAIN; Start 01/23/19 at 13:30; Stop 01/24/19 at 14:28; Status DC Albuterol Sulfate (Ventolin Neb Soln) 2.5 mg PRN Q2HR PRN NEB SHORTNESS OF BREATH; Start 01/23/19 at 13:30 Albuterol Sulfate (Ventolin Neb Soln) 2.5 mg PRN Q3HRS PRN NEB wheezing; Start 01/23/19 at 13:30 Atorvastatin Calcium (Lipitor) 10 mg HS PO Last administered on 01/25/19at 20:47; Start 01/23/19 at 21:00 Docusate Sodium (Colace) 100 mg DAILY PO Last administered on 01/26/19at 07:52; Start 01/23/19 at 14:00 Ferrous Sulfate (Feosol) 325 mg DAILY PO Last administered on 01/23/19at 13:34; Start 01/23/19 at 14:00 Furosemide (Lasix) 40 mg DAILY PO Last administered on 01/23/19at 13:34; Start 01/23/19 at 14:00 Acetaminophen/ Hydrocodone Bitart (Lortab 10/325) 1 tab PRN Q6HRS PRN PO MODERATE PAIN; Start 01/23/19 at 13:30 Insulin Human Lispro (HumaLOG) TIDWMEALS SQ ; Start 01/23/19 at 17:00; Stop 01/25/19 at 16:52; Status DC Albuterol/ Ipratropium (Duoneb) 3 ml QID NEB Last administered on 01/26/19at 08:07; Start 01/23/19 at 17:00 Lactobacillus Rhamnosus (Culturelle) 1 cap BID PO Last administered on 01/26/19at 07:51; Start 01/23/19 at 13:30 Lidocaine (Lidoderm) 1 patch DAILY TP Last administered on 01/23/19at 13:34; Start 01/23/19 at 14:00 Al Hydroxide/Mg Hydroxide (Mylanta Plus Xs) 30 ml PRN DAILY PRN PO HEARTBURN / GAS; Start 01/23/19 at 13:30 Tramadol HCl (Ultram) 50 mg PRN Q6HRS PRN PO MILD TO MODERATE PAIN Last administered on 01/23/19at 18:27; Start 01/23/19 at 13:30 Alprazolam (Xanax) 0.5 mg 1X ONCE PO Last administered on 01/25/19at 16:28; Start 01/25/19 at 16:30; Stop 01/25/19 at 16:31; Status DC Active Scripts Active Proair Hfa Inhaler (Albuterol Sulfate) 8.5 Gm Hfa.aer.ad 2 Puff IH PRN Q4-6HRS PRN 21 Days Prednisone 20 Mg Tablet 2 Tab PO DAILY Mag-Al Plus Xs Suspension (Mag Hydrox/Al Hydrox/Simeth) 30 Ml Oral.susp 30 Ml PO PRN DAILY PRN 10 Days Deep Sea (Sodium Chloride) 44 Ml [facility] 1 Angel NS PRN Q1HR PRN 10 Days Doxycycline Hyclate 100 Mg Capsule 1 Cap PO BID Hydrocodone-Apap 10-325 (Hydrocodone Bit/Acetaminophen) 1 Tab Tablet 1 Tab PO PRN Q6HRS PRN Culturelle (Lactobacillus Rhamnosus Gg) 1 Each Cap.sprink 1 Cap PO BID 30 Days Colace (Docusate Sodium) 100 Mg Capsule 100 Mg PO DAILY 30 Days Fluticasone Propionate Nasal [place] [facility] (Fluticasone Propionate) 16 Gm [facility].susp 2 [place] [facility] NS DAILY 30 Days Miralax (Polyethylene Glycol 3350) 119 Gm Powder 17 Gm PO BID Duoneb 0.5-3(2.5) Mg/3 Ml (Albuterol/Ipratropium) 3 Ml Ampul.neb 3 Ml NEB QID Tessalon Perle (Benzonatate) 100 Mg Capsule 1 Cap PO TID Montelukast Sodium Tablet (Montelukast Sodium) 10 Mg Tablet 10 Mg PO QHS Lidocaine PATCH (Lidocaine) 1 Each Adh..patch 1 Each TP DAILY 30 Days REMOVE AFTER 12 HOURS Humalog (Insulin Lispro) 100 Unit/1 Ml Insuln.pen 0 Units SQ TIDWMEALS 30 Days Aspirin Ec (Aspirin) 81 Mg Tablet.dr 81 Mg PO DAILYWBKFT 30 Days Guaifenesin 100 Mg/5 Ml Liquid 200 Mg PO PRN Q4HRS PRN 30 Days Tylenol (Acetaminophen) 325 Mg Tablet 650 Mg PO PRN Q4HRS PRN 10 Days Ventolin Hfa Inhaler (Albuterol Sulfate) 18 Gm Hfa.aer.ad 2 Puff INH Q4HRS Reglan (Metoclopramide Hcl) 10 Mg Tablet 0.5 Tab PO QID 30 Days Reported Tramadol Hcl 50 Mg Tablet 100 Mg PO Q6HRS PRN Lasix (Furosemide) 40 Mg Tablet 1 Tab PO DAILY 30 Days Feosol (Ferrous Sulfate) 325 Mg Tablet 1 Tab PO DAILY 30 Days Tramadol Hcl 50 Mg Tablet 50 Mg PO Q6HRS PRN Prednisone (Prednisone) 10 Mg Tablet 10 Mg PO DAILY Ferrous Sulfate 325 Mg Tablet 325 Mg PO DAILY Ativan (Lorazepam) 1 Mg Tablet 1 Mg PO BID Metformin Hcl 500 Mg Tablet 500 Mg PO DAILYWBKFT Pulmicort (Budesonide) 0.25 Mg/2 Ml Ampul.neb 1 Vial NEB BID Albuterol Sulfate Neb Soln (Albuterol Sulfate) 2.5 Mg/3 Ml Vial.neb 1 Vial NEB PRN Q2HR PRN Furosemide 40 Mg Tablet 1 Tab PO DAILY Vitamin D3 (Cholecalciferol (Vitamin D3)) 5,000 Unit Tablet 5,000 Unit PO DAILY Potassium Chloride (Potassium Chloride) 20 Meq Tablet.er 20 Meq PO DAILY Protonix (Pantoprazole Sodium) 20 Mg Tablet.dr 2 Tab PO DAILY Atorvastatin Calcium 10 Mg Tablet 10 Mg PO HS Symbicort 160-4.5 Mcg Inhaler (Budesonide/Formoterol Fumarate) 10.2 Gm Hfa.aer.ad 2 Puff IH BID Vitals/I & O Vital Sign - Last 24 Hours 01/25/19 01/25/19 01/25/19 01/25/19 12:04 15:00 15:29 16:28 Temp 98.4 98.4 Pulse 107 Resp 16 B/P (MAP) 119/78 (92) Pulse Ox 99 97 O2 Delivery Nasal Cannula Nasal Cannula Nasal Cannula O2 Flow Rate 3.5 3.0 3.5 01/25/19 01/25/19 01/25/19 01/25/19 17:05 17:28 19:12 20:00 O2 Delivery Nasal Cannula Room Air Nasal Cannula Nasal Cannula O2 Flow Rate 3.0 3.5 3.0 01/25/19 01/25/19 01/26/19 01/26/19 20:00 22:49 02:48 07:00 Temp 97.4 97.9 98.1 98.5 97.4 97.9 98.1 98.5 Pulse 107 91 73 81 Resp 16 14 14 16 B/P (MAP) 128/83 (98) 144/92 (109) 133/79 (97) 134/92 (106) Pulse Ox 96 98 98 98 O2 Delivery Nasal Cannula Nasal Cannula Nasal Cannula Nasal Cannula O2 Flow Rate 3.0 3.0 3.0 3.0 01/26/19 01/26/19 01/26/19 01/26/19 07:52 08:00 08:15 08:15 Pulse Ox 97 97 O2 Delivery Room Air Nasal Cannula Nasal Cannula Nasal Cannula O2 Flow Rate 3.5 3.5 3.5 01/26/19 08:52 O2 Delivery Nasal Cannula Intake and Output 01/25/19 01/25/19 01/26/19 15:00 23:00 07:00 Intake Total 250 ml 250 ml Output Total 350 ml Balance -350 ml 250 ml 250 ml TOMAS BAIG MD Jan 26, 2019 11:13
[2019-01-26 15:00] VITALS: BP 101/72
[2019-01-26 19:29] VITALS: BP 111/63
[2019-01-26] MEDS: MONTELUKAST SODIUM 10 MG TABLET. PO SCH (20:42)
[2019-01-26] MEDS: ATORVASTATIN CALCIUM 10 MG TABLET. PO SCH (20:43)
[2019-01-26 23:55] VITALS: BP 129/95
[2019-01-27 03:20] VITALS: BP 152/86
[2019-01-27 03:40] LABS: BASO % 0 % (0-3); EOS % 0 % (0-3); HEMATOCRIT 33.3 % (39.0-53.0); HEMOGLOBIN 10.7 g/dL (13.0-17.5); LYMPH # 0.3 x10^3/uL (1.0-4.8); LYMPH % 4 % (24-48); MEAN CORPUSCULAR HEMOGLOBIN 28 pg (25-35); MEAN CORPUSCULAR HGB CONC 32 g/dL (31-37); MEAN CORPUSCULAR VOLUME 86 fL (79-100); MONO # 0.5 x10^3/uL (0.0-1.1); MONO % 7 % (0-9); NEUT # 6.3 x10^3/uL (1.8-7.7); NEUT % 88 % (31-73); PLATELET COUNT 149 x10^3/uL (140-400); RED BLOOD COUNT 3.87 x10^6/uL (4.30-5.70); RED CELL DISTRIBUTION WIDTH 23.5 % (11.5-14.5); WHITE BLOOD COUNT 7.2 x10^3/uL (4.0-11.0)
[2019-01-27 04:18] LABS: ALBUMIN 2.8 g/dL (3.4-5.0); ALBUMIN/GLOBULIN RATIO 0.9 (1.0-1.7); CALCIUM 9.3 mg/dL (8.5-10.1); CREATININE 0.8 mg/dL (0.7-1.3); GFR 119.7; POTASSIUM 3.6 mmol/L (3.5-5.1); TOTAL BILIRUBIN 0.2 mg/dL (0.2-1.0); TOTAL PROTEIN 5.9 g/dL (6.4-8.2)
[2019-01-27 07:00] VITALS: BP 115/55
--- NOTE | 2019-01-27 08:18 | PDOC ---
PROGRESS NOTES History of Present Illness History of Present Illness VTE Prophylaxis Ordered VTE Prophylaxis Devices: No VTE Pharmacological Prophylaxi: Yes Assessment/Plan Assessment/Plan Impression: acute COPD exacerbation PROB ENDSTAGE COPD large left upper lobe bullous. Otherwise moderate emphysematous changes elsewhere. Mild right apical subpleural fibrosis. Bilateral linear opacities likely related to atelectasis versus scarring. acute on chronic resp failure CHF Approximate 40 percent T8 vertebral body height loss is new from 09/08/2018 exam. states that he is in the process of being evaluated for lung transplant through [facility]. He said he will be referred to [place]. 01/26, VERY ANXIOUS OVERNIGHT, RESPONDED WELL TO XANAX PRN PO ADMITTED TELE O2 SUPPORT PULM CONSULT HOME MEDS TAPERING po STEROIDS 40 mg prednisone CHRONIC PAIN PT/OT [employer] PROGNOSIS 28 MIN PT EXAM, CHART REVIEW, > 50% OF TIME SPENT WITH EXAM, CHART REVIEW, PT CARE COORDINATION Vitals Vitals Vital Signs Date Time Temp Pulse Resp B/P (MAP) Pulse Ox O2 Delivery O2 Flow Rate FiO2 01/27/19 03:20 98.3 97 20 152/86 (108) 100 Nasal Cannula 3.0 98.3 Physical Exam General: Alert, Oriented X3, Cooperative, mild distress Heart: Regular rate Lungs: Other (deminishe bs) Abdomen: Normal bowel sounds, Soft Extremities: No cyanosis Labs LABS Laboratory Tests Test 01/27/19 02:40 White Blood Count 7.2 x10^3/uL (4.0-11.0) Red Blood Count 3.87 x10^6/uL (4.30-5.70) Hemoglobin 10.7 g/dL (13.0-17.5) Hematocrit 33.3 % (39.0-53.0) Mean Corpuscular Volume 86 fL (79-100) Mean Corpuscular Hemoglobin 28 pg (25-35) Mean Corpuscular Hemoglobin Concent 32 g/dL (31-37) Red Cell Distribution Width 23.5 % (11.5-14.5) Platelet Count 149 x10^3/uL (140-400) Neutrophils (%) (Auto) 88 % (31-73) Lymphocytes (%) (Auto) 4 % (24-48) Monocytes (%) (Auto) 7 % (0-9) Eosinophils (%) (Auto) 0 % (0-3) Basophils (%) (Auto) 0 % (0-3) Neutrophils # (Auto) 6.3 x10^3/uL (1.8-7.7) Lymphocytes # (Auto) 0.3 x10^3/uL (1.0-4.8) Monocytes # (Auto) 0.5 x10^3/uL (0.0-1.1) Eosinophils # (Auto) 0.0 x10^3/uL (0.0-0.7) Basophils # (Auto) 0.0 x10^3/uL (0.0-0.2) Sodium Level 139 mmol/L (136-145) Potassium Level 3.6 mmol/L (3.5-5.1) Chloride Level 99 mmol/L (98-107) Carbon Dioxide Level 36 mmol/L (21-32) Anion Gap 4 (6-14) Blood Urea Nitrogen 14 mg/dL (8-26) Creatinine 0.8 mg/dL (0.7-1.3) Estimated GFR (Cockcroft-Gault) 119.7 BUN/Creatinine Ratio 18 (6-20) Glucose Level 129 mg/dL (70-99) Calcium Level 9.3 mg/dL (8.5-10.1) Total Bilirubin 0.2 mg/dL (0.2-1.0) Aspartate Amino Transf (AST/SGOT) 11 U/L (15-37) Alanine Aminotransferase (ALT/SGPT) 14 U/L (16-63) Alkaline Phosphatase 79 U/L (46-116) Total Protein 5.9 g/dL (6.4-8.2) Albumin 2.8 g/dL (3.4-5.0) Albumin/Globulin Ratio 0.9 (1.0-1.7) Comment Review of Relevant I have reviewed the following items franki (where applicable) has been applied. Labs Laboratory Tests Test 01/25/19 17:10 01/27/19 02:40 O2 Saturation 96 % (92-99) Arterial Blood pH 7.41 (7.35-7.45) Arterial Blood pCO2 at Patient Temp 47 mmHg (35-46) Arterial Blood pO2 at Patient Temp 87 mmHg (65-108) Arterial Blood HCO3 29 mmol/L (21-28) Arterial Blood Base Excess 3 mmol/L (-3-3) FiO2 32 White Blood Count 7.2 x10^3/uL (4.0-11.0) Red Blood Count 3.87 x10^6/uL (4.30-5.70) Hemoglobin 10.7 g/dL (13.0-17.5) Hematocrit 33.3 % (39.0-53.0) Mean Corpuscular Volume 86 fL (79-100) Mean Corpuscular Hemoglobin 28 pg (25-35) Mean Corpuscular Hemoglobin Concent 32 g/dL (31-37) Red Cell Distribution Width 23.5 % (11.5-14.5) Platelet Count 149 x10^3/uL (140-400) Neutrophils (%) (Auto) 88 % (31-73) Lymphocytes (%) (Auto) 4 % (24-48) Monocytes (%) (Auto) 7 % (0-9) Eosinophils (%) (Auto) 0 % (0-3) Basophils (%) (Auto) 0 % (0-3) Neutrophils # (Auto) 6.3 x10^3/uL (1.8-7.7) Lymphocytes # (Auto) 0.3 x10^3/uL (1.0-4.8) Monocytes # (Auto) 0.5 x10^3/uL (0.0-1.1) Eosinophils # (Auto) 0.0 x10^3/uL (0.0-0.7) Basophils # (Auto) 0.0 x10^3/uL (0.0-0.2) Sodium Level 139 mmol/L (136-145) Potassium Level 3.6 mmol/L (3.5-5.1) Chloride Level 99 mmol/L (98-107) Carbon Dioxide Level 36 mmol/L (21-32) Anion Gap 4 (6-14) Blood Urea Nitrogen 14 mg/dL (8-26) Creatinine 0.8 mg/dL (0.7-1.3) Estimated GFR (Cockcroft-Gault) 119.7 BUN/Creatinine Ratio 18 (6-20) Glucose Level 129 mg/dL (70-99) Calcium Level 9.3 mg/dL (8.5-10.1) Total Bilirubin 0.2 mg/dL (0.2-1.0) Aspartate Amino Transf (AST/SGOT) 11 U/L (15-37) Alanine Aminotransferase (ALT/SGPT) 14 U/L (16-63) Alkaline Phosphatase 79 U/L (46-116) Total Protein 5.9 g/dL (6.4-8.2) Albumin 2.8 g/dL (3.4-5.0) Albumin/Globulin Ratio 0.9 (1.0-1.7) Laboratory Tests Test 01/27/19 02:40 White Blood Count 7.2 x10^3/uL (4.0-11.0) Red Blood Count 3.87 x10^6/uL (4.30-5.70) Hemoglobin 10.7 g/dL (13.0-17.5) Hematocrit 33.3 % (39.0-53.0) Mean Corpuscular Volume 86 fL (79-100) Mean Corpuscular Hemoglobin 28 pg (25-35) Mean Corpuscular Hemoglobin Concent 32 g/dL (31-37) Red Cell Distribution Width 23.5 % (11.5-14.5) Platelet Count 149 x10^3/uL (140-400) Neutrophils (%) (Auto) 88 % (31-73) Lymphocytes (%) (Auto) 4 % (24-48) Monocytes (%) (Auto) 7 % (0-9) Eosinophils (%) (Auto) 0 % (0-3) Basophils (%) (Auto) 0 % (0-3) Neutrophils # (Auto) 6.3 x10^3/uL (1.8-7.7) Lymphocytes # (Auto) 0.3 x10^3/uL (1.0-4.8) Monocytes # (Auto) 0.5 x10^3/uL (0.0-1.1) Eosinophils # (Auto) 0.0 x10^3/uL (0.0-0.7) Basophils # (Auto) 0.0 x10^3/uL (0.0-0.2) Sodium Level 139 mmol/L (136-145) Potassium Level 3.6 mmol/L (3.5-5.1) Chloride Level 99 mmol/L (98-107) Carbon Dioxide Level 36 mmol/L (21-32) Anion Gap 4 (6-14) Blood Urea Nitrogen 14 mg/dL (8-26) Creatinine 0.8 mg/dL (0.7-1.3) Estimated GFR (Cockcroft-Gault) 119.7 BUN/Creatinine Ratio 18 (6-20) Glucose Level 129 mg/dL (70-99) Calcium Level 9.3 mg/dL (8.5-10.1) Total Bilirubin 0.2 mg/dL (0.2-1.0) Aspartate Amino Transf (AST/SGOT) 11 U/L (15-37) Alanine Aminotransferase (ALT/SGPT) 14 U/L (16-63) Alkaline Phosphatase 79 U/L (46-116) Total Protein 5.9 g/dL (6.4-8.2) Albumin 2.8 g/dL (3.4-5.0) Albumin/Globulin Ratio 0.9 (1.0-1.7) Medications Current Medications Albuterol/ Ipratropium (Duoneb) 3 ml STK-MED ONCE .ROUTE ; Start 01/22/19 at 22:28; Stop 01/22/19 at 22:28; Status DC Albuterol/ Ipratropium (Duoneb) 3 ml 1X ONCE NEB Last administered on 01/22/19at 22:32; Start 01/22/19 at 22:30; Stop 01/22/19 at 22:31; Status DC Methylprednisolone Sodium Succinate (SOLU-Medrol 125MG VIAL) 125 mg 1X ONCE IV Last administered on 01/22/19at 22:48; Start 01/22/19 at 22:30; Stop 01/22/19 at 22:32; Status DC Ondansetron HCl (Zofran) 4 mg PRN Q8HRS PRN IV NAUSEA/VOMITING; Start 01/23/19 at 00:30; Stop 01/24/19 at 00:29; Status DC Acetaminophen (Tylenol) 650 mg PRN Q4HRS PRN PO FEVER; Start 01/23/19 at 00:30; Stop 01/24/19 at 00:29; Status DC Albuterol/ Ipratropium (Duoneb) 3 ml RTQID NEB Last administered on 01/23/19at 05:39; Start 01/23/19 at 08:00; Stop 01/23/19 at 10:28; Status DC Aspirin (Ecotrin) 81 mg DAILYWBKFT PO Last administered on 01/26/19 07:51; Start 01/23/19 at 08:00 Benzonatate (Tessalon Perle) 100 mg TID PO Last administered on 01/26/19 20:42; Start 01/23/19 at 09:00 Ferrous Sulfate (Feosol) 325 mg DAILY PO Last administered on 01/26/19 07:51; Start 01/23/19 at 09:00 Fluticasone Propionate (Flonase) 2 spray DAILY NS Last administered on 01/12 09:02; Start 01/23/19 at 09:00 Furosemide (Lasix) 40 mg DAILY PO Last administered on 01/26/19 07:51; Start 01/23/19 at 09:00 Guaifenesin (Robitussin) 200 mg PRN Q4HRS PRN PO COUGH Last administered on 01/23/19 05:22; Start 01/23/19 at 02:15 Lorazepam (Ativan) 1 mg BID PO Last administered on 01/26/19 20:42; Start 01/23/19 at 09:00 Metformin HCl (Glucophage) 500 mg DAILYWBKFT PO Last administered on 01/26/19 07:51; Start 01/23/19 at 08:00 Metoclopramide HCl (Reglan) 5 mg QID PO Last administered on 01/26/19 20:42; Start 01/23/19 at 09:00 Montelukast Sodium (Singulair) 10 mg QHS PO Last administered on 01/26/19 20:42; Start 01/23/19 at 21:00 Polyethylene Glycol (miraLAX PACKET) 17 gm BID PO Last administered on 01/26/19 07:52; Start 01/23/19 at 09:00 Potassium Chloride (Klor-Con) 20 meq DAILY PO Last administered on 01/26/19 07:53; Start 01/23/19 at 09:00 Prednisone (Prednisone) 40 mg DAILY PO Last administered on 01/26/19 07:52; Start 01/23/19 at 09:00 Sodium Chloride (Saline Mist Nasal) 1 angel PRN Q1HR PRN NS NASAL CONGESTION; Start 01/23/19 at 02:15 Tramadol HCl (Ultram) 100 mg PRN Q6HRS PRN PO SEVERE PAIN Last administered on 01/26/19 20:43; Start 01/23/19 at 02:15 Non-Formulary Medication (Budesonide/ Formoterol Fumarate (Symbicort 160-4.5 Mcg Inhaler)) 2 puff BID IH ; Start 01/23/19 at 09:00; Status UNV Vitamin D (Vitamin D3) 5,000 unit DAILY PO Last administered on 01/26/19 07:52; Start 01/23/19 at 09:00 Pantoprazole Sodium (Protonix) 40 mg DAILYAC PO Last administered on 01/26/19 07:51; Start 01/23/19 at 07:30 Budesonide (Pulmicort) 0.5 mg RTBID NEB Last administered on 01/26/19 19:50; Start 01/23/19 at 08:00 Albuterol Sulfate (Ventolin Neb Soln) 2.5 mg RTQID NEB Last administered on 01/23/19 14:51; Start 01/23/19 at 08:00; Stop 01/24/19 at 14:29; Status DC Acetaminophen (Tylenol) 650 mg PRN Q4HRS PRN PO TEMP OVER 100.4F OR MILD PAIN; Start 01/23/19 at 13:30; Stop 01/24/19 at 14:28; Status DC Albuterol Sulfate (Ventolin Neb Soln) 2.5 mg PRN Q2HR PRN NEB SHORTNESS OF BREATH; Start 01/23/19 at 13:30 Albuterol Sulfate (Ventolin Neb Soln) 2.5 mg PRN Q3HRS PRN NEB wheezing; Start 01/23/19 at 13:30; Status Cancel Atorvastatin Calcium (Lipitor) 10 mg HS PO Last administered on 01/26/19at 20:43; Start 01/23/19 at 21:00 Docusate Sodium (Colace) 100 mg DAILY PO Last administered on 01/26/19 07:52; Start 01/23/19 at 14:00 Ferrous Sulfate (Feosol) 325 mg DAILY PO Last administered on 01/23/19at 13:34; Start 01/23/19 at 14:00; Stop 01/26/19 at 14:54; Status DC Furosemide (Lasix) 40 mg DAILY PO Last administered on 01/23/19at 13:34; Start 01/23/19 at 14:00; Stop 01/26/19 at 14:55; Status DC Acetaminophen/ Hydrocodone Bitart (Lortab 10/325) 1 tab PRN Q6HRS PRN PO MODERATE PAIN; Start 01/23/19 at 13:30 Insulin Human Lispro (HumaLOG) TIDWMEALS SQ ; Start 01/23/19 at 17:00; Stop 01/25/19 at 16:52; Status DC Albuterol/ Ipratropium (Duoneb) 3 ml QID NEB Last administered on 01/26/19at 19:50; Start 01/23/19 at 17:00 Lactobacillus Rhamnosus (Culturelle) 1 cap BID PO Last administered on 01/26/19at 20:42; Start 01/23/19 at 13:30 Lidocaine (Lidoderm) 1 patch DAILY TP Last administered on 01/23/19at 13:34; Start 01/23/19 at 14:00 Al Hydroxide/Mg Hydroxide (Mylanta Plus Xs) 30 ml PRN DAILY PRN PO HEARTBURN / GAS; Start 01/23/19 at 13:30 Tramadol HCl (Ultram) 50 mg PRN Q6HRS PRN PO MILD TO MODERATE PAIN Last administered on 01/23/19at 18:27; Start 01/23/19 at 13:30 Alprazolam (Xanax) 0.5 mg 1X ONCE PO Last administered on 01/25/19at 16:28; Start 01/25/19 at 16:30; Stop 01/25/19 at 16:31; Status DC Active Scripts Active Proair Hfa Inhaler (Albuterol Sulfate) 8.5 Gm Hfa.aer.ad 2 Puff IH PRN Q4-6HRS PRN 21 Days Prednisone 20 Mg Tablet 2 Tab PO DAILY Mag-Al Plus Xs Suspension (Mag Hydrox/Al Hydrox/Simeth) 30 Ml Oral.susp 30 Ml PO PRN DAILY PRN 10 Days Deep Sea (Sodium Chloride) 44 Ml [place] 1 Angel NS PRN Q1HR PRN 10 Days Doxycycline Hyclate 100 Mg Capsule 1 Cap PO BID Hydrocodone-Apap 10-325 (Hydrocodone Bit/Acetaminophen) 1 Tab Tablet 1 Tab PO PRN Q6HRS PRN Culturelle (Lactobacillus Rhamnosus Gg) 1 Each Cap.sprink 1 Cap PO BID 30 Days Colace (Docusate Sodium) 100 Mg Capsule 100 Mg PO DAILY 30 Days Fluticasone Propionate Nasal [place] (Fluticasone Propionate) 16 Gm [place].susp 2 [place] NS DAILY 30 Days Miralax (Polyethylene Glycol 3350) 119 Gm Powder 17 Gm PO BID Duoneb 0.5-3(2.5) Mg/3 Ml (Albuterol/Ipratropium) 3 Ml Ampul.neb 3 Ml NEB QID Tessalon Perle (Benzonatate) 100 Mg Capsule 1 Cap PO TID Montelukast Sodium Tablet (Montelukast Sodium) 10 Mg Tablet 10 Mg PO QHS Lidocaine PATCH (Lidocaine) 1 Each Adh..patch 1 Each TP DAILY 30 Days REMOVE AFTER 12 HOURS Humalog (Insulin Lispro) 100 Unit/1 Ml Insuln.pen 0 Units SQ TIDWMEALS 30 Days Aspirin Ec (Aspirin) 81 Mg Tablet.dr 81 Mg PO DAILYWBKFT 30 Days Guaifenesin 100 Mg/5 Ml Liquid 200 Mg PO PRN Q4HRS PRN 30 Days Tylenol (Acetaminophen) 325 Mg Tablet 650 Mg PO PRN Q4HRS PRN 10 Days Reglan (Metoclopramide Hcl) 10 Mg Tablet 0.5 Tab PO QID 30 Days Reported Tramadol Hcl 50 Mg Tablet 100 Mg PO Q6HRS PRN Lasix (Furosemide) 40 Mg Tablet 1 Tab PO DAILY 30 Days Feosol (Ferrous Sulfate) 325 Mg Tablet 1 Tab PO DAILY 30 Days Tramadol Hcl 50 Mg Tablet 50 Mg PO Q6HRS PRN Prednisone (Prednisone) 10 Mg Tablet 10 Mg PO DAILY Ativan (Lorazepam) 1 Mg Tablet 1 Mg PO BID Metformin Hcl 500 Mg Tablet 500 Mg PO DAILYWBKFT Pulmicort (Budesonide) 0.25 Mg/2 Ml Ampul.neb 1 Vial NEB BID Vitamin D3 (Cholecalciferol (Vitamin D3)) 5,000 Unit Tablet 5,000 Unit PO DAILY Potassium Chloride (Potassium Chloride) 20 Meq Tablet.er 20 Meq PO DAILY Protonix (Pantoprazole Sodium) 20 Mg Tablet.dr 2 Tab PO DAILY Atorvastatin Calcium 10 Mg Tablet 10 Mg PO HS Symbicort 160-4.5 Mcg Inhaler (Budesonide/Formoterol Fumarate) 10.2 Gm Hfa.aer.ad 2 Puff IH BID Vitals/I & O Vital Sign - Last 24 Hours 01/26/19 01/26/19 01/26/19 01/26/19 08:52 11:00 12:40 13:45 Temp 98.7 98.7 Pulse 100 Resp 16 B/P (MAP) 133/90 (104) Pulse Ox 97 97 O2 Delivery Nasal Cannula Nasal Cannula Nasal Cannula Nasal Cannula O2 Flow Rate 3.0 3.5 01/26/19 01/26/19 01/26/19 01/26/19 14:45 15:00 16:12 19:29 Temp 98.6 98.7 98.6 98.7 Pulse 72 113 Resp 16 22 B/P (MAP) 101/72 (82) 111/63 (79) Pulse Ox 96 97 97 O2 Delivery Nasal Cannula Nasal Cannula Nasal Cannula Nasal Cannula O2 Flow Rate 3.0 3.5 3.0 01/26/19 01/26/19 01/26/19 01/26/19 19:50 20:00 20:43 21:43 Resp 18 18 Pulse Ox 97 97 97 O2 Delivery Nasal Cannula Nasal Cannula Nasal Cannula Nasal Cannula O2 Flow Rate 3.5 3.5 3.5 3.5 01/26/19 01/27/19 23:55 03:20 Temp 98.6 98.3 98.6 98.3 Pulse 98 97 Resp 22 20 B/P (MAP) 129/95 (106) 152/86 (108) Pulse Ox 97 100 O2 Delivery Nasal Cannula Nasal Cannula O2 Flow Rate 3.0 3.0 Intake and Output 01/26/19 01/26/19 01/27/19 14:59 22:59 06:59 Intake Total 580 ml 750 ml Output Total 700 ml 550 ml 700 ml Balance -700 ml 30 ml 50 ml TOMAS BAIG MD Jan 27, 2019 08:18
--- NOTE | 2019-01-27 08:38 | PDOC ---
PULMONARY PROGRESS NOTES Subjective PT STILL SOA [employer]OSING WEIGHT Vitals Vital Signs Date Time Temp Pulse Resp B/P (MAP) Pulse Ox O2 Delivery O2 Flow Rate FiO2 01/27/19 07:00 98.5 62 20 115/55 (75) 99 Nasal Cannula 3.0 98.5 General: Alert, No acute distress, Mild Distress Lungs: Other (DECREASE BS) Cardiovascular: S1, S2 Abdomen: Soft, Non-tender Extremities: Other Skin: Warm Labs Laboratory Tests Test 01/25/19 17:10 01/27/19 02:40 O2 Saturation 96 % (92-99) Arterial Blood pH 7.41 (7.35-7.45) Arterial Blood pCO2 at Patient Temp 47 mmHg (35-46) Arterial Blood pO2 at Patient Temp 87 mmHg (65-108) Arterial Blood HCO3 29 mmol/L (21-28) Arterial Blood Base Excess 3 mmol/L (-3-3) FiO2 32 White Blood Count 7.2 x10^3/uL (4.0-11.0) Red Blood Count 3.87 x10^6/uL (4.30-5.70) Hemoglobin 10.7 g/dL (13.0-17.5) Hematocrit 33.3 % (39.0-53.0) Mean Corpuscular Volume 86 fL (79-100) Mean Corpuscular Hemoglobin 28 pg (25-35) Mean Corpuscular Hemoglobin Concent 32 g/dL (31-37) Red Cell Distribution Width 23.5 % (11.5-14.5) Platelet Count 149 x10^3/uL (140-400) Neutrophils (%) (Auto) 88 % (31-73) Lymphocytes (%) (Auto) 4 % (24-48) Monocytes (%) (Auto) 7 % (0-9) Eosinophils (%) (Auto) 0 % (0-3) Basophils (%) (Auto) 0 % (0-3) Neutrophils # (Auto) 6.3 x10^3/uL (1.8-7.7) Lymphocytes # (Auto) 0.3 x10^3/uL (1.0-4.8) Monocytes # (Auto) 0.5 x10^3/uL (0.0-1.1) Eosinophils # (Auto) 0.0 x10^3/uL (0.0-0.7) Basophils # (Auto) 0.0 x10^3/uL (0.0-0.2) Sodium Level 139 mmol/L (136-145) Potassium Level 3.6 mmol/L (3.5-5.1) Chloride Level 99 mmol/L (98-107) Carbon Dioxide Level 36 mmol/L (21-32) Anion Gap 4 (6-14) Blood Urea Nitrogen 14 mg/dL (8-26) Creatinine 0.8 mg/dL (0.7-1.3) Estimated GFR (Cockcroft-Gault) 119.7 BUN/Creatinine Ratio 18 (6-20) Glucose Level 129 mg/dL (70-99) Calcium Level 9.3 mg/dL (8.5-10.1) Total Bilirubin 0.2 mg/dL (0.2-1.0) Aspartate Amino Transf (AST/SGOT) 11 U/L (15-37) Alanine Aminotransferase (ALT/SGPT) 14 U/L (16-63) Alkaline Phosphatase 79 U/L (46-116) Total Protein 5.9 g/dL (6.4-8.2) Albumin 2.8 g/dL (3.4-5.0) Albumin/Globulin Ratio 0.9 (1.0-1.7) Laboratory Tests Test 01/27/19 02:40 White Blood Count 7.2 x10^3/uL (4.0-11.0) Red Blood Count 3.87 x10^6/uL (4.30-5.70) Hemoglobin 10.7 g/dL (13.0-17.5) Hematocrit 33.3 % (39.0-53.0) Mean Corpuscular Volume 86 fL (79-100) Mean Corpuscular Hemoglobin 28 pg (25-35) Mean Corpuscular Hemoglobin Concent 32 g/dL (31-37) Red Cell Distribution Width 23.5 % (11.5-14.5) Platelet Count 149 x10^3/uL (140-400) Neutrophils (%) (Auto) 88 % (31-73) Lymphocytes (%) (Auto) 4 % (24-48) Monocytes (%) (Auto) 7 % (0-9) Eosinophils (%) (Auto) 0 % (0-3) Basophils (%) (Auto) 0 % (0-3) Neutrophils # (Auto) 6.3 x10^3/uL (1.8-7.7) Lymphocytes # (Auto) 0.3 x10^3/uL (1.0-4.8) Monocytes # (Auto) 0.5 x10^3/uL (0.0-1.1) Eosinophils # (Auto) 0.0 x10^3/uL (0.0-0.7) Basophils # (Auto) 0.0 x10^3/uL (0.0-0.2) Sodium Level 139 mmol/L (136-145) Potassium Level 3.6 mmol/L (3.5-5.1) Chloride Level 99 mmol/L (98-107) Carbon Dioxide Level 36 mmol/L (21-32) Anion Gap 4 (6-14) Blood Urea Nitrogen 14 mg/dL (8-26) Creatinine 0.8 mg/dL (0.7-1.3) Estimated GFR (Cockcroft-Gault) 119.7 BUN/Creatinine Ratio 18 (6-20) Glucose Level 129 mg/dL (70-99) Calcium Level 9.3 mg/dL (8.5-10.1) Total Bilirubin 0.2 mg/dL (0.2-1.0) Aspartate Amino Transf (AST/SGOT) 11 U/L (15-37) Alanine Aminotransferase (ALT/SGPT) 14 U/L (16-63) Alkaline Phosphatase 79 U/L (46-116) Total Protein 5.9 g/dL (6.4-8.2) Albumin 2.8 g/dL (3.4-5.0) Albumin/Globulin Ratio 0.9 (1.0-1.7) Medications Active Scripts Medications Dose Route/Sig Max Daily Dose Days Date Category Dose Instructions Tramadol Hcl 50 Mg Tablet 100 Mg PO Q6HRS PRN 01/23/19 Reported Proair Hfa Inhaler (Albuterol Sulfate) 8.5 Gm Hfa.aer.ad 2 Puff IH PRN Q4-6HRS PRN 21 01/17/19 Rx Prednisone 20 Mg Tablet 2 Tab PO DAILY 01/17/19 Rx Lasix (Furosemide) 40 Mg Tablet 1 Tab PO DAILY 30 01/09/19 Reported Feosol (Ferrous Sulfate) 325 Mg Tablet 1 Tab PO DAILY 30 01/09/19 Reported Tramadol Hcl 50 Mg Tablet 50 Mg PO Q6HRS PRN 01/09/19 Reported Mag-Al Plus Xs Suspension (Mag Hydrox/Al Hydrox/Simeth) 30 Ml Oral.susp 30 Ml PO PRN DAILY PRN 10 12/31/18 Rx Deep Sea (Sodium Chloride) 44 Ml [place] 1 Angel NS PRN Q1HR PRN 10 12/31/18 Rx Doxycycline Hyclate 100 Mg Capsule 1 Cap PO BID 12/31/18 Rx Hydrocodone-Apap 10-325 (Hydrocodone Bit/Acetaminophen) 1 Tab Tablet 1 Tab PO PRN Q6HRS PRN 12/22/18 Rx Prednisone (Prednisone) 10 Mg Tablet 10 Mg PO DAILY 12/20/18 Reported Ferrous Sulfate 325 Mg Tablet 325 Mg PO DAILY 12/20/18 Reported Ativan (Lorazepam) 1 Mg Tablet 1 Mg PO BID 12/20/18 Reported Culturelle (Lactobacillus Rhamnosus Gg) 1 Each Cap.sprink 1 Cap PO BID 30 11/11/18 Rx Colace (Docusate Sodium) 100 Mg Capsule 100 Mg PO DAILY 30 11/11/18 Rx Fluticasone Propionate Nasal [place] (Fluticasone Propionate) 16 Gm [place].susp 2 [place] NS DAILY 30 11/11/18 Rx Miralax (Polyethylene Glycol 3350) 119 Gm Powder 17 Gm PO BID 11/03/18 Rx Duoneb 0.5-3(2.5) Mg/3 Ml (Albuterol/Ipratropium) 3 Ml Ampul.neb 3 Ml NEB QID 10/28/18 Rx Tessalon Perle (Benzonatate) 100 Mg Capsule 1 Cap PO TID 10/28/18 Rx Montelukast Sodium Tablet (Montelukast Sodium) 10 Mg Tablet 10 Mg PO QHS 10/28/18 Rx Lidocaine PATCH (Lidocaine) 1 Each Adh..patch 1 Each TP DAILY 09/11/18 Rx REMOVE AFTER 12 HOURS Metformin Hcl 500 Mg Tablet 500 Mg PO DAILYWBKFT 09/09/18 Reported Humalog (Insulin Lispro) 100 Unit/1 Ml Insuln.pen 0 Units SQ TIDWMEALS 08/28/18 Rx Aspirin Ec (Aspirin) 81 Mg Tablet.dr 81 Mg PO DAILYWBKFT 08/28/18 Rx Pulmicort (Budesonide) 0.25 Mg/2 Ml Ampul.neb 1 Vial NEB BID 08/25/18 Reported Albuterol Sulfate Neb Soln (Albuterol Sulfate) 2.5 Mg/3 Ml Vial.neb 1 Vial NEB PRN Q2HR PRN 08/25/18 Reported Furosemide 40 Mg Tablet 1 Tab PO DAILY 06/20/18 Reported Guaifenesin 100 Mg/5 Ml Liquid 200 Mg PO PRN Q4HRS PRN 30 05/30/18 Rx Tylenol (Acetaminophen) 325 Mg Tablet 650 Mg PO PRN Q4HRS PRN 10 05/30/18 Rx Ventolin Hfa Inhaler (Albuterol Sulfate) 18 Gm Hfa.aer.ad 2 Puff INH Q4HRS 05/10/18 Rx Vitamin D3 (Cholecalciferol (Vitamin D3)) 5,000 Unit Tablet 5,000 Unit PO DAILY 03/15/18 Reported Reglan (Metoclopramide Hcl) 10 Mg Tablet 0.5 Tab PO QID 30 02/14/18 Rx Potassium Chloride (Potassium Chloride) 20 Meq Tablet.er 20 Meq PO DAILY 01/13/18 Reported Protonix (Pantoprazole Sodium) 20 Mg Tablet.dr 2 Tab PO DAILY 11/18/17 Reported Atorvastatin Calcium 10 Mg Tablet 10 Mg PO HS 08/21/17 Reported Symbicort 160-4.5 Mcg Inhaler (Budesonide/Formoterol Fumarate) 10.2 Gm Hfa.aer.ad 2 Puff IH BID 09/21/15 Reported Impression . IMPRESSION: 1. Dyspnea, secondary to recurrent exacerbation of chronic obstructive pulmonary disease. This is a patient who has end-stage chronic obstructive pulmonary disease with chronic hypoxic respiratory failure and is hospitalized on a weekly basis secondary to multiple exacerbations on a regular basis. 2. Abnormal chest x-ray with evidence of bullous lung disease, especially in the left upper lobe. No change. No new infiltrates. 3. Chronic pain syndrome. Plan . WILL CONTINUE THE SAME FOR NOW PT IS NOT A CANDIDATE FOR ENDOBRONCHIAL VALVE, HAD THIS DISCUSSION IN THE PAST PROGNOSIS IS POOR SCOTT COOK MD Jan 27, 2019 08:38
[2019-01-27] MEDS: BUDESONIDE 0.5 MG/2 ML NEBU. NEB SCH ×2 (08:41→19:25)
[2019-01-27] MEDS: IPRATRPIUM/ALBUTEROL 0.5/2.5MG 3 ML NEBU. NEB SCH ×4 (08:41→19:25)
[2019-01-27] MEDS: traMADol 50 MG TABLET PO PRN ×3 (08:50→22:57)
[2019-01-27] MEDS: ASPIRIN ENTERIC COATED 81 MG TABLET.DR. PO SCH (08:50)
[2019-01-27] MEDS: LORazepam 1 MG TABLET PO SCH ×2 (08:50→20:01)
[2019-01-27] MEDS: METOCLOPRAMIDE 10 MG TABLET. PO SCH ×4 (08:50→20:00)
[2019-01-27] MEDS: CHOLECALCIFEROL (VITAMIN D3) 5,000 UNIT CAPSULE PO SCH (08:50)
[2019-01-27] MEDS: FERROUS SULFATE 325 MG TABLET. PO SCH (08:51)
[2019-01-27] MEDS: POTASSIUM CHLORIDE 20 MEQ TABLET.ER. PO SCH (08:51)
[2019-01-27] MEDS: BENZONATATE 100 MG CAPSULE. PO SCH ×3 (08:51→20:01)
[2019-01-27] MEDS: predniSONE 20 MG TABLET PO SCH (08:51)
[2019-01-27] MEDS: PANTOPRAZOLE 40 MG TABLET.DR. PO SCH (08:51)
[2019-01-27] MEDS: LACTOBACILLUS RHAMNOSUS GG 1 CAPSULE. PO SCH ×2 (08:51→20:01)
[2019-01-27] MEDS: FUROSEMIDE 40 MG TABLET. PO SCH (08:51)
[2019-01-27] MEDS: metFORMIN 500 MG TABLET PO SCH (08:51)
[2019-01-27] MEDS: LIDOCAINE (700MG/PATCH) PATCH. TP SCH (08:52)
[2019-01-27] MEDS: POLYETHYLENE GLYCOL 3350 17 GM PACKET. PO SCH ×2 (08:52→20:02)
[2019-01-27] MEDS: FLUTICASONE 50MCG/NASAL SPRAY 16GM BOTTLE. NS SCH (08:52)
[2019-01-27] MEDS: DOCUSATE SODIUM 100 MG CAPSULE. PO SCH (08:52)
[2019-01-27 11:48] VITALS: BP 112/74
--- NOTE | 2019-01-27 14:17 | NUR ---
SS following up with discharge planning. PT evaluated pt and recommended home with assistance. SS will continue to follow for discharge planning.
[2019-01-27 14:39] VITALS: BP 109/68
[2019-01-27 19:12] VITALS: BP 107/75
[2019-01-27] MEDS: MONTELUKAST SODIUM 10 MG TABLET. PO SCH (20:00)
[2019-01-27] MEDS: ATORVASTATIN CALCIUM 10 MG TABLET. PO SCH (20:00)
[2019-01-27 23:18] VITALS: BP 107/72
[2019-01-28] MEDS: traMADol 50 MG TABLET PO PRN ×2 (06:26→12:06)
--- NOTE | 2019-01-28 07:11 | PDOC ---
PULMONARY PROGRESS NOTES Subjective SOA WITH MININMAL EXTERTION Vitals Vital Signs Date Time Temp Pulse Resp B/P (MAP) Pulse Ox O2 Delivery O2 Flow Rate FiO2 01/28/19 06:26 16 01/28/19 03:50 105 01/27/19 23:57 98 Nasal Cannula 3.0 01/27/19 23:18 98.2 107/72 (84) 98.2 General: Alert, No acute distress, Mild Distress Lungs: Other (DECREASE BS) Cardiovascular: S1, S2 Abdomen: Soft, Non-tender Extremities: Other Skin: Warm Labs Laboratory Tests Test 01/27/19 02:40 White Blood Count 7.2 x10^3/uL (4.0-11.0) Red Blood Count 3.87 x10^6/uL (4.30-5.70) Hemoglobin 10.7 g/dL (13.0-17.5) Hematocrit 33.3 % (39.0-53.0) Mean Corpuscular Volume 86 fL (79-100) Mean Corpuscular Hemoglobin 28 pg (25-35) Mean Corpuscular Hemoglobin Concent 32 g/dL (31-37) Red Cell Distribution Width 23.5 % (11.5-14.5) Platelet Count 149 x10^3/uL (140-400) Neutrophils (%) (Auto) 88 % (31-73) Lymphocytes (%) (Auto) 4 % (24-48) Monocytes (%) (Auto) 7 % (0-9) Eosinophils (%) (Auto) 0 % (0-3) Basophils (%) (Auto) 0 % (0-3) Neutrophils # (Auto) 6.3 x10^3/uL (1.8-7.7) Lymphocytes # (Auto) 0.3 x10^3/uL (1.0-4.8) Monocytes # (Auto) 0.5 x10^3/uL (0.0-1.1) Eosinophils # (Auto) 0.0 x10^3/uL (0.0-0.7) Basophils # (Auto) 0.0 x10^3/uL (0.0-0.2) Sodium Level 139 mmol/L (136-145) Potassium Level 3.6 mmol/L (3.5-5.1) Chloride Level 99 mmol/L (98-107) Carbon Dioxide Level 36 mmol/L (21-32) Anion Gap 4 (6-14) Blood Urea Nitrogen 14 mg/dL (8-26) Creatinine 0.8 mg/dL (0.7-1.3) Estimated GFR (Cockcroft-Gault) 119.7 BUN/Creatinine Ratio 18 (6-20) Glucose Level 129 mg/dL (70-99) Calcium Level 9.3 mg/dL (8.5-10.1) Total Bilirubin 0.2 mg/dL (0.2-1.0) Aspartate Amino Transf (AST/SGOT) 11 U/L (15-37) Alanine Aminotransferase (ALT/SGPT) 14 U/L (16-63) Alkaline Phosphatase 79 U/L (46-116) Total Protein 5.9 g/dL (6.4-8.2) Albumin 2.8 g/dL (3.4-5.0) Albumin/Globulin Ratio 0.9 (1.0-1.7) Medications Active Scripts Medications Dose Route/Sig Max Daily Dose Days Date Category Dose Instructions Tramadol Hcl 50 Mg Tablet 100 Mg PO Q6HRS PRN 01/23/19 Reported Proair Hfa Inhaler (Albuterol Sulfate) 8.5 Gm Hfa.aer.ad 2 Puff IH PRN Q4-6HRS PRN 21 01/17/19 Rx Prednisone 20 Mg Tablet 2 Tab PO DAILY 01/17/19 Rx Lasix (Furosemide) 40 Mg Tablet 1 Tab PO DAILY 30 01/09/19 Reported Feosol (Ferrous Sulfate) 325 Mg Tablet 1 Tab PO DAILY 30 01/09/19 Reported Tramadol Hcl 50 Mg Tablet 50 Mg PO Q6HRS PRN 01/09/19 Reported Mag-Al Plus Xs Suspension (Mag Hydrox/Al Hydrox/Simeth) 30 Ml Oral.susp 30 Ml PO PRN DAILY PRN 10 12/31/18 Rx Deep Sea (Sodium Chloride) 44 Ml [place] 1 Angel NS PRN Q1HR PRN 10 12/31/18 Rx Doxycycline Hyclate 100 Mg Capsule 1 Cap PO BID 12/31/18 Rx Hydrocodone-Apap 10-325 (Hydrocodone Bit/Acetaminophen) 1 Tab Tablet 1 Tab PO PRN Q6HRS PRN 12/22/18 Rx Prednisone (Prednisone) 10 Mg Tablet 10 Mg PO DAILY 12/20/18 Reported Ferrous Sulfate 325 Mg Tablet 325 Mg PO DAILY 12/20/18 Reported Ativan (Lorazepam) 1 Mg Tablet 1 Mg PO BID 12/20/18 Reported Culturelle (Lactobacillus Rhamnosus Gg) 1 Each Cap.sprink 1 Cap PO BID 30 11/11/18 Rx Colace (Docusate Sodium) 100 Mg Capsule 100 Mg PO DAILY 30 11/11/18 Rx Fluticasone Propionate Nasal [place] (Fluticasone Propionate) 16 Gm [place].susp 2 [place] NS DAILY 30 11/11/18 Rx Miralax (Polyethylene Glycol 3350) 119 Gm Powder 17 Gm PO BID 11/03/18 Rx Duoneb 0.5-3(2.5) Mg/3 Ml (Albuterol/Ipratropium) 3 Ml Ampul.neb 3 Ml NEB QID 10/28/18 Rx Tessalon Perle (Benzonatate) 100 Mg Capsule 1 Cap PO TID 10/28/18 Rx Montelukast Sodium Tablet (Montelukast Sodium) 10 Mg Tablet 10 Mg PO QHS 10/28/18 Rx Lidocaine PATCH (Lidocaine) 1 Each Adh..patch 1 Each TP DAILY 09/11/18 Rx REMOVE AFTER 12 HOURS Metformin Hcl 500 Mg Tablet 500 Mg PO DAILYWBKFT 09/09/18 Reported Humalog (Insulin Lispro) 100 Unit/1 Ml Insuln.pen 0 Units SQ TIDWMEALS 08/28/18 Rx Aspirin Ec (Aspirin) 81 Mg Tablet.dr 81 Mg PO DAILYWBKFT 08/28/18 Rx Pulmicort (Budesonide) 0.25 Mg/2 Ml Ampul.neb 1 Vial NEB BID 08/25/18 Reported Albuterol Sulfate Neb Soln (Albuterol Sulfate) 2.5 Mg/3 Ml Vial.neb 1 Vial NEB PRN Q2HR PRN 08/25/18 Reported Furosemide 40 Mg Tablet 1 Tab PO DAILY 06/20/18 Reported Guaifenesin 100 Mg/5 Ml Liquid 200 Mg PO PRN Q4HRS PRN 30 05/30/18 Rx Tylenol (Acetaminophen) 325 Mg Tablet 650 Mg PO PRN Q4HRS PRN 10 05/30/18 Rx Ventolin Hfa Inhaler (Albuterol Sulfate) 18 Gm Hfa.aer.ad 2 Puff INH Q4HRS 05/10/18 Rx Vitamin D3 (Cholecalciferol (Vitamin D3)) 5,000 Unit Tablet 5,000 Unit PO DAILY 03/15/18 Reported Reglan (Metoclopramide Hcl) 10 Mg Tablet 0.5 Tab PO QID 30 02/14/18 Rx Potassium Chloride (Potassium Chloride) 20 Meq Tablet.er 20 Meq PO DAILY 01/13/18 Reported Protonix (Pantoprazole Sodium) 20 Mg Tablet.dr 2 Tab PO DAILY 11/18/17 Reported Atorvastatin Calcium 10 Mg Tablet 10 Mg PO HS 08/21/17 Reported Symbicort 160-4.5 Mcg Inhaler (Budesonide/Formoterol Fumarate) 10.2 Gm Hfa.aer.ad 2 Puff IH BID 09/21/15 Reported Impression . IMPRESSION: 1. Dyspnea, secondary to recurrent exacerbation of chronic obstructive pulmonary disease. This is a patient who has end-stage chronic obstructive pulmonary disease with chronic hypoxic respiratory failure and is hospitalized on a weekly basis secondary to multiple exacerbations on a regular basis. 2. Abnormal chest x-ray with evidence of bullous lung disease, especially in the left upper lobe. No change. No new infiltrates. 3. Chronic pain syndrome. Plan . SOCIAL SERVICE TO VISIT WITH PT HOME TODAY PT IS NOT A CANDIDATE FOR ENDOBRONCHIAL VALVE, HAD THIS DISCUSSION IN THE PAST PROGNOSIS IS POOR SCOTT COOK MD Jan 28, 2019 07:11
[2019-01-28 07:57] VITALS: BP 125/87
[2019-01-28] MEDS: IPRATRPIUM/ALBUTEROL 0.5/2.5MG 3 ML NEBU. NEB SCH ×4 (08:20→15:42)
[2019-01-28] MEDS: ASPIRIN ENTERIC COATED 81 MG TABLET.DR. PO SCH (08:41)
[2019-01-28] MEDS: predniSONE 20 MG TABLET PO SCH (08:41)
[2019-01-28] MEDS: LACTOBACILLUS RHAMNOSUS GG 1 CAPSULE. PO SCH (08:41)
[2019-01-28] MEDS: LORazepam 1 MG TABLET PO SCH (08:41)
[2019-01-28] MEDS: metFORMIN 500 MG TABLET PO SCH (08:41)
[2019-01-28] MEDS: POTASSIUM CHLORIDE 20 MEQ TABLET.ER. PO SCH (08:41)
[2019-01-28] MEDS: FUROSEMIDE 40 MG TABLET. PO SCH (08:42)
[2019-01-28] MEDS: BUDESONIDE 0.5 MG/2 ML NEBU. NEB SCH (08:42)
[2019-01-28] MEDS: CHOLECALCIFEROL (VITAMIN D3) 5,000 UNIT CAPSULE PO SCH (08:42)
[2019-01-28] MEDS: METOCLOPRAMIDE 10 MG TABLET. PO SCH ×2 (08:42→12:06)
[2019-01-28] MEDS: PANTOPRAZOLE 40 MG TABLET.DR. PO SCH (08:42)
[2019-01-28] MEDS: BENZONATATE 100 MG CAPSULE. PO SCH ×2 (08:42→12:06)
[2019-01-28] MEDS: DOCUSATE SODIUM 100 MG CAPSULE. PO SCH (08:48)
[2019-01-28] MEDS: POLYETHYLENE GLYCOL 3350 17 GM PACKET. PO SCH (08:48)
[2019-01-28] MEDS: FLUTICASONE 50MCG/NASAL SPRAY 16GM BOTTLE. NS SCH (08:48)
[2019-01-28] MEDS: LIDOCAINE (700MG/PATCH) PATCH. TP SCH (08:49)
[2019-01-28] MEDS: FERROUS SULFATE 325 MG TABLET. PO SCH (08:53)
--- NOTE | 2019-01-28 09:37 | PDOC ---
PROGRESS NOTES History of Present Illness History of Present Illness VTE Prophylaxis Ordered VTE Prophylaxis Devices: No VTE Pharmacological Prophylaxi: Yes Assessment/Plan Assessment/Plan Impression: acute COPD exacerbation PROB ENDSTAGE COPD large left upper lobe bullous. Otherwise moderate emphysematous changes elsewhere. Mild right apical subpleural fibrosis. Bilateral linear opacities likely related to atelectasis versus scarring. acute on chronic resp failure CHF Approximate 40 percent T8 vertebral body height loss is new from 09/08/2018 exam. states that he is in the process of being evaluated for lung transplant through [facility]. He said he will be referred to [place]. 01/26, VERY ANXIOUS OVERNIGHT, RESPONDED WELL TO XANAX PRN PO ADMITTED TELE O2 SUPPORT PULM CONSULT HOME MEDS TAPERING po STEROIDS 40 mg prednisone CHRONIC PAIN PT/OT D/C 01/[address] VITALY [facility]ICKEY PULMON[facility] [employer] PROGNOSIS 28 MIN PT EXAM, CHART REVIEW D/C DX , > 50% OF TIME SPENT WITH EXAM, CHART REVIEW, PT CARE COORDINATION Vitals Vitals Vital Signs Date Time Temp Pulse Resp B/P (MAP) Pulse Ox O2 Delivery O2 Flow Rate FiO2 01/28/19 08:24 100 Nasal Cannula 3.0 01/28/19 07:57 98.4 72 20 125/87 (100) 98.4 Physical Exam General: Alert, Oriented X3, Cooperative, mild distress Heart: Regular rate Lungs: Other (DECREASE BS) Abdomen: Normal bowel sounds, Soft Extremities: No cyanosis Comment Review of Relevant I have reviewed the following items franki (where applicable) has been applied. Labs Laboratory Tests Test 01/27/19 02:40 White Blood Count 7.2 x10^3/uL (4.0-11.0) Red Blood Count 3.87 x10^6/uL (4.30-5.70) Hemoglobin 10.7 g/dL (13.0-17.5) Hematocrit 33.3 % (39.0-53.0) Mean Corpuscular Volume 86 fL (79-100) Mean Corpuscular Hemoglobin 28 pg (25-35) Mean Corpuscular Hemoglobin Concent 32 g/dL (31-37) Red Cell Distribution Width 23.5 % (11.5-14.5) Platelet Count 149 x10^3/uL (140-400) Neutrophils (%) (Auto) 88 % (31-73) Lymphocytes (%) (Auto) 4 % (24-48) Monocytes (%) (Auto) 7 % (0-9) Eosinophils (%) (Auto) 0 % (0-3) Basophils (%) (Auto) 0 % (0-3) Neutrophils # (Auto) 6.3 x10^3/uL (1.8-7.7) Lymphocytes # (Auto) 0.3 x10^3/uL (1.0-4.8) Monocytes # (Auto) 0.5 x10^3/uL (0.0-1.1) Eosinophils # (Auto) 0.0 x10^3/uL (0.0-0.7) Basophils # (Auto) 0.0 x10^3/uL (0.0-0.2) Sodium Level 139 mmol/L (136-145) Potassium Level 3.6 mmol/L (3.5-5.1) Chloride Level 99 mmol/L (98-107) Carbon Dioxide Level 36 mmol/L (21-32) Anion Gap 4 (6-14) Blood Urea Nitrogen 14 mg/dL (8-26) Creatinine 0.8 mg/dL (0.7-1.3) Estimated GFR (Cockcroft-Gault) 119.7 BUN/Creatinine Ratio 18 (6-20) Glucose Level 129 mg/dL (70-99) Calcium Level 9.3 mg/dL (8.5-10.1) Total Bilirubin 0.2 mg/dL (0.2-1.0) Aspartate Amino Transf (AST/SGOT) 11 U/L (15-37) Alanine Aminotransferase (ALT/SGPT) 14 U/L (16-63) Alkaline Phosphatase 79 U/L (46-116) Total Protein 5.9 g/dL (6.4-8.2) Albumin 2.8 g/dL (3.4-5.0) Albumin/Globulin Ratio 0.9 (1.0-1.7) Medications Current Medications Albuterol/ Ipratropium (Duoneb) 3 ml STK-MED ONCE .ROUTE ; Start 01/22/19 at 22:28; Stop 01/22/19 at 22:28; Status DC Albuterol/ Ipratropium (Duoneb) 3 ml 1X ONCE NEB Last administered on 01/22/19at 22:32; Start 01/22/19 at 22:30; Stop 01/22/19 at 22:31; Status DC Methylprednisolone Sodium Succinate (SOLU-Medrol 125MG VIAL) 125 mg 1X ONCE IV Last administered on 01/22/19at 22:48; Start 01/22/19 at 22:30; Stop 01/22/19 at 22:32; Status DC Ondansetron HCl (Zofran) 4 mg PRN Q8HRS PRN IV NAUSEA/VOMITING; Start 01/23/19 at 00:30; Stop 01/24/19 at 00:29; Status DC Acetaminophen (Tylenol) 650 mg PRN Q4HRS PRN PO FEVER; Start 01/23/19 at 00:30; Stop 01/24/19 at 00:29; Status DC Albuterol/ Ipratropium (Duoneb) 3 ml RTQID NEB Last administered on 01/23/19at 05:39; Start 01/23/19 at 08:00; Stop 01/23/19 at 10:28; Status DC Aspirin (Ecotrin) 81 mg DAILYWBKFT PO Last administered on 01/28/19 08:41; Start 01/23/19 at 08:00 Benzonatate (Tessalon Perle) 100 mg TID PO Last administered on 01/28/19 08:42; Start 01/23/19 at 09:00 Ferrous Sulfate (Feosol) 325 mg DAILY PO Last administered on 01/28/19at 08:53; Start 01/23/19 at 09:00 Fluticasone Propionate (Flonase) 2 spray DAILY NS Last administered on 01/23/19 09:02; Start 01/23/19 at 09:00 Furosemide (Lasix) 40 mg DAILY PO Last administered on 01/28/19 08:42; Start 01/23/19 at 09:00 Guaifenesin (Robitussin) 200 mg PRN Q4HRS PRN PO COUGH Last administered on 01/23/19 05:22; Start 01/23/19 at 02:15 Lorazepam (Ativan) 1 mg BID PO Last administered on 01/28/19 08:41; Start 01/23/19 at 09:00 Metformin HCl (Glucophage) 500 mg DAILYWBKFT PO Last administered on 01/28/19 08:41; Start 01/23/19 at 08:00 Metoclopramide HCl (Reglan) 5 mg QID PO Last administered on 01/28/19 08:42; Start 01/23/19 at 09:00 Montelukast Sodium (Singulair) 10 mg QHS PO Last administered on 01/27/19 20:00; Start 01/23/19 at 21:00 Polyethylene Glycol (miraLAX PACKET) 17 gm BID PO Last administered on 01/28/19 08:48; Start 01/23/19 at 09:00 Potassium Chloride (Klor-Con) 20 meq DAILY PO Last administered on 01/28/19 08:41; Start 01/23/19 at 09:00 Prednisone (Prednisone) 40 mg DAILY PO Last administered on 01/28/19 08:41; Start 01/23/19 at 09:00 Sodium Chloride (Saline Mist Nasal) 1 angel PRN Q1HR PRN NS NASAL CONGESTION; Start 01/23/19 at 02:15 Tramadol HCl (Ultram) 100 mg PRN Q6HRS PRN PO SEVERE PAIN Last administered on 01/28/19 06:26; Start 01/23/19 at 02:15 Non-Formulary Medication (Budesonide/ Formoterol Fumarate (Symbicort 160-4.5 Mcg Inhaler)) 2 puff BID IH ; Start 01/23/19 at 09:00; Status UNV Vitamin D (Vitamin D3) 5,000 unit DAILY PO Last administered on 01/28/19 08:42; Start 01/23/19 at 09:00 Pantoprazole Sodium (Protonix) 40 mg DAILYAC PO Last administered on 01/28/19 08:42; Start 01/23/19 at 07:30 Budesonide (Pulmicort) 0.5 mg RTBID NEB Last administered on 01/27/19 19:25; Start 01/23/19 at 08:00 Albuterol Sulfate (Ventolin Neb Soln) 2.5 mg RTQID NEB Last administered on 01/23/19 14:51; Start 01/23/19 at 08:00; Stop 01/24/19 at 14:29; Status DC Acetaminophen (Tylenol) 650 mg PRN Q4HRS PRN PO TEMP OVER 100.4F OR MILD PAIN; Start 01/23/19 at 13:30; Stop 01/24/19 at 14:28; Status DC Albuterol Sulfate (Ventolin Neb Soln) 2.5 mg PRN Q2HR PRN NEB SHORTNESS OF BREATH; Start 01/23/19 at 13:30 Albuterol Sulfate (Ventolin Neb Soln) 2.5 mg PRN Q3HRS PRN NEB wheezing; Start 01/23/19 at 13:30; Status Cancel Atorvastatin Calcium (Lipitor) 10 mg HS PO Last administered on 01/27/19at 20:00; Start 01/23/19 at 21:00 Docusate Sodium (Colace) 100 mg DAILY PO Last administered on 01/26/19at 07:52; Start 01/23/19 at 14:00 Ferrous Sulfate (Feosol) 325 mg DAILY PO Last administered on 01/23/19at 13:34; Start 01/23/19 at 14:00; Stop 01/26/19 at 14:54; Status DC Furosemide (Lasix) 40 mg DAILY PO Last administered on 01/23/19at 13:34; Start 01/23/19 at 14:00; Stop 01/26/19 at 14:55; Status DC Acetaminophen/ Hydrocodone Bitart (Lortab 10/325) 1 tab PRN Q6HRS PRN PO MODERATE PAIN; Start 01/23/19 at 13:30 Insulin Human Lispro (HumaLOG) TIDWMEALS SQ ; Start 01/23/19 at 17:00; Stop 01/25/19 at 16:52; Status DC Albuterol/ Ipratropium (Duoneb) 3 ml QID NEB Last administered on 01/28/19at 08:20; Start 01/23/19 at 17:00 Lactobacillus Rhamnosus (Culturelle) 1 cap BID PO Last administered on 01/28/19at 08:41; Start 01/23/19 at 13:30 Lidocaine (Lidoderm) 1 patch DAILY TP Last administered on 01/23/19at 13:34; Start 01/23/19 at 14:00 Al Hydroxide/Mg Hydroxide (Mylanta Plus Xs) 30 ml PRN DAILY PRN PO HEARTBURN / GAS; Start 01/23/19 at 13:30 Tramadol HCl (Ultram) 50 mg PRN Q6HRS PRN PO MILD TO MODERATE PAIN Last administered on 01/23/19at 18:27; Start 01/23/19 at 13:30 Alprazolam (Xanax) 0.5 mg 1X ONCE PO Last administered on 01/25/19at 16:28; Start 01/25/19 at 16:30; Stop 01/25/19 at 16:31; Status DC Active Scripts Active Proair Hfa Inhaler (Albuterol Sulfate) 8.5 Gm Hfa.aer.ad 2 Puff IH PRN Q4-6HRS PRN 21 Days Prednisone 20 Mg Tablet 2 Tab PO DAILY Mag-Al Plus Xs Suspension (Mag Hydrox/Al Hydrox/Simeth) 30 Ml Oral.susp 30 Ml PO PRN DAILY PRN 10 Days Deep Sea (Sodium Chloride) 44 Ml [place] 1 Angel NS PRN Q1HR PRN 10 Days Doxycycline Hyclate 100 Mg Capsule 1 Cap PO BID Hydrocodone-Apap 10-325 (Hydrocodone Bit/Acetaminophen) 1 Tab Tablet 1 Tab PO PRN Q6HRS PRN Culturelle (Lactobacillus Rhamnosus Gg) 1 Each Cap.sprink 1 Cap PO BID 30 Days Colace (Docusate Sodium) 100 Mg Capsule 100 Mg PO DAILY 30 Days Fluticasone Propionate Nasal [place] (Fluticasone Propionate) 16 Gm [place].susp 2 [place] NS DAILY 30 Days Miralax (Polyethylene Glycol 3350) 119 Gm Powder 17 Gm PO BID Duoneb 0.5-3(2.5) Mg/3 Ml (Albuterol/Ipratropium) 3 Ml Ampul.neb 3 Ml NEB QID Tessalon Perle (Benzonatate) 100 Mg Capsule 1 Cap PO TID Montelukast Sodium Tablet (Montelukast Sodium) 10 Mg Tablet 10 Mg PO QHS Lidocaine PATCH (Lidocaine) 1 Each Adh..patch 1 Each TP DAILY 30 Days REMOVE AFTER 12 HOURS Humalog (Insulin Lispro) 100 Unit/1 Ml Insuln.pen 0 Units SQ TIDWMEALS 30 Days Aspirin Ec (Aspirin) 81 Mg Tablet.dr 81 Mg PO DAILYWBKFT 30 Days Guaifenesin 100 Mg/5 Ml Liquid 200 Mg PO PRN Q4HRS PRN 30 Days Tylenol (Acetaminophen) 325 Mg Tablet 650 Mg PO PRN Q4HRS PRN 10 Days Reglan (Metoclopramide Hcl) 10 Mg Tablet 0.5 Tab PO QID 30 Days Reported Tramadol Hcl 50 Mg Tablet 100 Mg PO Q6HRS PRN Lasix (Furosemide) 40 Mg Tablet 1 Tab PO DAILY 30 Days Feosol (Ferrous Sulfate) 325 Mg Tablet 1 Tab PO DAILY 30 Days Tramadol Hcl 50 Mg Tablet 50 Mg PO Q6HRS PRN Prednisone (Prednisone) 10 Mg Tablet 10 Mg PO DAILY Ativan (Lorazepam) 1 Mg Tablet 1 Mg PO BID Metformin Hcl 500 Mg Tablet 500 Mg PO DAILYWBKFT Pulmicort (Budesonide) 0.25 Mg/2 Ml Ampul.neb 1 Vial NEB BID Vitamin D3 (Cholecalciferol (Vitamin D3)) 5,000 Unit Tablet 5,000 Unit PO DAILY Potassium Chloride (Potassium Chloride) 20 Meq Tablet.er 20 Meq PO DAILY Protonix (Pantoprazole Sodium) 20 Mg Tablet.dr 2 Tab PO DAILY Atorvastatin Calcium 10 Mg Tablet 10 Mg PO HS Symbicort 160-4.5 Mcg Inhaler (Budesonide/Formoterol Fumarate) 10.2 Gm Hfa.aer.ad 2 Puff IH BID Vitals/I & O Vital Sign - Last 24 Hours 01/27/19 01/27/19 01/27/19 01/27/19 11:48 11:53 14:39 19:12 Temp 98.4 99.1 97.9 98.4 99.1 97.9 Pulse 90 111 120 Resp 20 18 20 B/P (MAP) 112/74 (87) 109/68 (82) 107/75 (86) Pulse Ox 98 98 98 96 O2 Delivery Nasal Cannula Nasal Cannula Nasal Cannula Nasal Cannula O2 Flow Rate 3.0 3.0 3.0 3.0 01/27/19 01/27/19 01/27/19 01/27/19 19:26 20:00 22:57 23:18 Temp 98.2 98.2 Pulse 102 Resp 16 20 B/P (MAP) 107/72 (84) Pulse Ox 98 98 98 O2 Delivery Nasal Cannula Nasal Cannula Nasal Cannula Nasal Cannula O2 Flow Rate 3.0 3.0 3.0 3.0 01/27/19 01/28/19 01/28/19 01/28/19 23:57 03:50 06:26 07:57 Temp 98.4 98.4 Pulse 105 72 Resp 16 16 20 B/P (MAP) 125/87 (100) Pulse Ox 98 94 O2 Delivery Nasal Cannula Nasal Cannula O2 Flow Rate 3.0 3.0 01/28/19 01/28/19 08:22 08:24 Pulse Ox 100 100 O2 Delivery Nasal Cannula Nasal Cannula O2 Flow Rate 3.0 3.0 Intake and Output 01/27/19 01/27/19 01/28/19 15:00 23:00 07:00 Intake Total 300 ml 200 ml 200 ml Output Total 850 ml 200 ml Balance -550 ml 200 ml 0 ml TOMAS BAIG MD Jan 28, 2019 09:37
[2019-01-28 11:37] VITALS: BP 133/89
--- NOTE | 2019-01-28 11:55 | PDOC3 ---
Discharge Summary Date of Admission: Jan 23, 2019 Date of Discharge: Jan 28, 2019 Follow-Up: 3-5 days Admitting Diagnosis comment: DISCHARGE DX Assessment/Plan Impression: acute COPD exacerbation PROB ENDSTAGE COPD large left upper lobe bullous. Otherwise moderate emphysematous changes elsewhere. Mild right apical subpleural fibrosis. Bilateral linear opacities likely related to atelectasis versus scarring. acute on chronic resp failure CHF Approximate 40 percent T8 vertebral body height loss is new from 09/08/2018 exam. states that he is in the process of being evaluated for lung transplant [facility]. He said he will be referred to [place]. 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 Nash is a 58 old [sex] who presented with [ ACUTE COPD EXAC ] CONDITION AT DISCHARGE: Improved Discharge Medications Current Medications Albuterol/ Ipratropium (Duoneb) 3 ml STK-MED ONCE .ROUTE ; Start 01/22/19 at 22:28; Stop 01/22/19 at 22:28; Status DC Albuterol/ Ipratropium (Duoneb) 3 ml 1X ONCE NEB Last administered on 01/22/19at 22:32; Start 01/22/19 at 22:30; Stop 01/22/19 at 22:31; Status DC Methylprednisolone Sodium Succinate (SOLU-Medrol 125MG VIAL) 125 mg 1X ONCE IV Last administered on 01/22/19at 22:48; Start 01/22/19 at 22:30; Stop 01/22/19 at 22:32; Status DC Ondansetron HCl (Zofran) 4 mg PRN Q8HRS PRN IV NAUSEA/VOMITING; Start 01/23/19 at 00:30; Stop 01/24/19 at 00:29; Status DC Acetaminophen (Tylenol) 650 mg PRN Q4HRS PRN PO FEVER; Start 01/23/19 at 00:30 ; Stop 01/24/19 at 00:29; Status DC Albuterol/ Ipratropium (Duoneb) 3 ml RTQID NEB Last administered on 01/23/19 05:39; Start 01/23/19 at 08:00; Stop 01/23/19 at 10:28; Status DC Aspirin (Ecotrin) 81 mg DAILYWBKFT PO Last administered on 01/28/19 08:41; Start 01/23/19 at 08:00 Benzonatate (Tessalon Perle) 100 mg TID PO Last administered on 01/28/19 08:42; Start 01/23/19 at 09:00 Ferrous Sulfate (Feosol) 325 mg DAILY PO Last administered on 01/28/19 08:53; Start 01/23/19 at 09:00 Fluticasone Propionate (Flonase) 2 spray DAILY NS Last administered on 01/23/19 09:02; Start 01/23/19 at 09:00 Furosemide (Lasix) 40 mg DAILY PO Last administered on 01/28/19 08:42; Start 01/23/19 at 09:00 Guaifenesin (Robitussin) 200 mg PRN Q4HRS PRN PO COUGH Last administered on 01/23/19 05:22; Start 01/23/19 at 02:15 Lorazepam (Ativan) 1 mg BID PO Last administered on 01/28/19 08:41; Start 01/23/19 at 09:00 Metformin HCl (Glucophage) 500 mg DAILYWBKFT PO Last administered on 01/28/19 08:41; Start 01/23/19 at 08:00 Metoclopramide HCl (Reglan) 5 mg QID PO Last administered on 01/28/19 08:42; Start 01/23/19 at 09:00 Montelukast Sodium (Singulair) 10 mg QHS PO Last administered on 01/27/19 20:00; Start 01/23/19 at 21:00 Polyethylene Glycol (miraLAX PACKET) 17 gm BID PO Last administered on 01/28/19 08:48; Start 01/23/19 at 09:00 Potassium Chloride (Klor-Con) 20 meq DAILY PO Last administered on 01/28/19 08:41; Start 01/23/19 at 09:00 Prednisone (Prednisone) 40 mg DAILY PO Last administered on 01/28/19 08:41; Start 01/23/19 at 09:00 Sodium Chloride (Saline Mist Nasal) 1 angel PRN Q1HR PRN NS NASAL CONGESTION; Start 01/23/19 at 02:15 Tramadol HCl (Ultram) 100 mg PRN Q6HRS PRN PO SEVERE PAIN Last administered on 01/28/19 06:26; Start 01/23/19 at 02:15 Non-Formulary Medication (Budesonide/ Formoterol Fumarate (Symbicort 160-4.5 Mcg Inhaler)) 2 puff BID IH ; Start 01/23/19 at 09:00; Status UNV Vitamin D (Vitamin D3) 5,000 unit DAILY PO Last administered on 01/28/19 08:42; Start 01/23/19 at 09:00 Pantoprazole Sodium (Protonix) 40 mg DAILYAC PO Last administered on 01/28/19at 08:42; Start 01/23/19 at 07:30 Budesonide (Pulmicort) 0.5 mg RTBID NEB Last administered on 01/28/19 08:42; Start 01/23/19 at 08:00 Albuterol Sulfate (Ventolin Neb Soln) 2.5 mg RTQID NEB Last administered on 01/23/19at 14:51; Start 01/23/19 at 08:00; Stop 01/24/19 at 14:29; Status DC Acetaminophen (Tylenol) 650 mg PRN Q4HRS PRN PO TEMP OVER 100.4F OR MILD PAIN; Start 01/23/19 at 13:30; Stop 01/24/19 at 14:28; Status DC Albuterol Sulfate (Ventolin Neb Soln) 2.5 mg PRN Q2HR PRN NEB SHORTNESS OF BREATH; Start 01/23/19 at 13:30 Albuterol Sulfate (Ventolin Neb Soln) 2.5 mg PRN Q3HRS PRN NEB wheezing; Start 01/23/19 at 13:30; Status Cancel Atorvastatin Calcium (Lipitor) 10 mg HS PO Last administered on 01/27/19at 20:00; Start 01/23/19 at 21:00 Docusate Sodium (Colace) 100 mg DAILY PO Last administered on 01/26/19at 07:52; Start 01/23/19 at 14:00 Ferrous Sulfate (Feosol) 325 mg DAILY PO Last administered on 01/23/19at 13:34; Start 01/23/19 at 14:00; Stop 01/26/19 at 14:54; Status DC Furosemide (Lasix) 40 mg DAILY PO Last administered on 01/23/19at 13:34; Start 01/23/19 at 14:00; Stop 01/26/19 at 14:55; Status DC Acetaminophen/ Hydrocodone Bitart (Lortab 10/325) 1 tab PRN Q6HRS PRN PO MODERATE PAIN; Start 01/23/19 at 13:30 Insulin Human Lispro (HumaLOG) TIDWMEALS SQ ; Start 01/23/19 at 17:00; Stop 01/25/19 at 16:52; Status DC Albuterol/ Ipratropium (Duoneb) 3 ml QID NEB Last administered on 01/28/19at 11:45; Start 01/23/19 at 17:00 Lactobacillus Rhamnosus (Culturelle) 1 cap BID PO Last administered on 01/12 08/30at 08:41; Start 01/23/19 at 13:30 Lidocaine (Lidoderm) 1 patch DAILY TP Last administered on 01/23/19at 13:34; Start 01/23/19 at 14:00 Al Hydroxide/Mg Hydroxide (Mylanta Plus Xs) 30 ml PRN DAILY PRN PO HEARTBURN / GAS; Start 01/23/19 at 13:30 Tramadol HCl (Ultram) 50 mg PRN Q6HRS PRN PO MILD TO MODERATE PAIN Last administered on 01/23/19at 18:27; Start 01/23/19 at 13:30 Alprazolam (Xanax) 0.5 mg 1X ONCE PO Last administered on 01/25/19at 16:28; Start 01/25/19 at 16:30; Stop 01/25/19 at 16:31; Status DC Active Scripts Active Proair Hfa Inhaler (Albuterol Sulfate) 8.5 Gm Hfa.aer.ad 2 Puff IH PRN Q4-6HRS PRN 21 Days Prednisone 20 Mg Tablet 2 Tab PO DAILY Mag-Al Plus Xs Suspension (Mag Hydrox/Al Hydrox/Simeth) 30 Ml Oral.susp 30 Ml PO PRN DAILY PRN 10 Days [place] (Sodium Chloride) 44 Ml [place] 1 Angel NS PRN Q1HR PRN 10 Days Doxycycline Hyclate 100 Mg Capsule 1 Cap PO BID Hydrocodone-Apap 10-325 (Hydrocodone Bit/Acetaminophen) 1 Tab Tablet 1 Tab PO PRN Q6HRS PRN Culturelle (Lactobacillus Rhamnosus Gg) 1 Each Cap.sprink 1 Cap PO BID 30 Days Colace (Docusate Sodium) 100 Mg Capsule 100 Mg PO DAILY 30 Days Fluticasone Propionate Nasal [place] (Fluticasone Propionate) 16 Gm [place].susp 2 [place] NS DAILY 30 Days Miralax (Polyethylene Glycol 3350) 119 Gm Powder 17 Gm PO BID Duoneb 0.5-3(2.5) Mg/3 Ml (Albuterol/Ipratropium) 3 Ml Ampul.neb 3 Ml NEB QID Tessalon Perle (Benzonatate) 100 Mg Capsule 1 Cap PO TID Montelukast Sodium Tablet (Montelukast Sodium) 10 Mg Tablet 10 Mg PO QHS Lidocaine PATCH (Lidocaine) 1 Each Adh..patch 1 Each TP DAILY 30 Days REMOVE AFTER 12 HOURS Humalog (Insulin Lispro) 100 Unit/1 Ml Insuln.pen 0 Units SQ TIDWMEALS 30 Days Aspirin Ec (Aspirin) 81 Mg Tablet.dr 81 Mg PO DAILYWBKFT 30 Days Guaifenesin 100 Mg/5 Ml Liquid 200 Mg PO PRN Q4HRS PRN 30 Days Tylenol (Acetaminophen) 325 Mg Tablet 650 Mg PO PRN Q4HRS PRN 10 Days Reglan (Metoclopramide Hcl) 10 Mg Tablet 0.5 Tab PO QID 30 Days Reported Tramadol Hcl 50 Mg Tablet 100 Mg PO Q6HRS PRN Lasix (Furosemide) 40 Mg Tablet 1 Tab PO DAILY 30 Days Feosol (Ferrous Sulfate) 325 Mg Tablet 1 Tab PO DAILY 30 Days Tramadol Hcl 50 Mg Tablet 50 Mg PO Q6HRS PRN Prednisone (Prednisone) 10 Mg Tablet 10 Mg PO DAILY Ativan (Lorazepam) 1 Mg Tablet 1 Mg PO BID Metformin Hcl 500 Mg Tablet 500 Mg PO DAILYWBKFT Pulmicort (Budesonide) 0.25 Mg/2 Ml Ampul.neb 1 Vial NEB BID Vitamin D3 (Cholecalciferol (Vitamin D3)) 5,000 Unit Tablet 5,000 Unit PO DAILY Potassium Chloride (Potassium Chloride) 20 Meq Tablet.er 20 Meq PO DAILY Protonix (Pantoprazole Sodium) 20 Mg Tablet.dr 2 Tab PO DAILY Atorvastatin Calcium 10 Mg Tablet 10 Mg PO HS Symbicort 160-4.5 Mcg Inhaler (Budesonide/Formoterol Fumarate) 10.2 Gm Hfa.aer.ad 2 Puff IH BID Vital Signs Vital Signs Date Time Temp Pulse Resp B/P (MAP) Pulse Ox O2 Delivery O2 Flow Rate FiO2 01/28/19 11:47 Nasal Cannula 3.0 01/28/19 11:37 98.6 97 18 133/89 (104) 92 98.6 Labs Laboratory Tests Test 01/27/19 02:40 White Blood Count 7.2 x10^3/uL (4.0-11.0) Red Blood Count 3.87 x10^6/uL (4.30-5.70) Hemoglobin 10.7 g/dL (13.0-17.5) Hematocrit 33.3 % (39.0-53.0) Mean Corpuscular Volume 86 fL (79-100) Mean Corpuscular Hemoglobin 28 pg (25-35) Mean Corpuscular Hemoglobin Concent 32 g/dL (31-37) Red Cell Distribution Width 23.5 % (11.5-14.5) Platelet Count 149 x10^3/uL (140-400) Neutrophils (%) (Auto) 88 % (31-73) Lymphocytes (%) (Auto) 4 % (24-48) Monocytes (%) (Auto) 7 % (0-9) Eosinophils (%) (Auto) 0 % (0-3) Basophils (%) (Auto) 0 % (0-3) Neutrophils # (Auto) 6.3 x10^3/uL (1.8-7.7) Lymphocytes # (Auto) 0.3 x10^3/uL (1.0-4.8) Monocytes # (Auto) 0.5 x10^3/uL (0.0-1.1) Eosinophils # (Auto) 0.0 x10^3/uL (0.0-0.7) Basophils # (Auto) 0.0 x10^3/uL (0.0-0.2) Sodium Level 139 mmol/L (136-145) Potassium Level 3.6 mmol/L (3.5-5.1) Chloride Level 99 mmol/L (98-107) Carbon Dioxide Level 36 mmol/L (21-32) Anion Gap 4 (6-14) Blood Urea Nitrogen 14 mg/dL (8-26) Creatinine 0.8 mg/dL (0.7-1.3) Estimated GFR (Cockcroft-Gault) 119.7 BUN/Creatinine Ratio 18 (6-20) Glucose Level 129 mg/dL (70-99) Calcium Level 9.3 mg/dL (8.5-10.1) Total Bilirubin 0.2 mg/dL (0.2-1.0) Aspartate Amino Transf (AST/SGOT) 11 U/L (15-37) Alanine Aminotransferase (ALT/SGPT) 14 U/L (16-63) Alkaline Phosphatase 79 U/L (46-116) Total Protein 5.9 g/dL (6.4-8.2) Albumin 2.8 g/dL (3.4-5.0) Albumin/Globulin Ratio 0.9 (1.0-1.7) Allergies Allergies Coded Allergies Type Severity Reaction Last Updated Verified No Known Medication Allergies Allergy Unknown 08/26/18 Yes Disposition/Orders: D/C to Home Patient Instructions D/C PLANNING 28 MIN TOMAS BAIG MD Jan 28, 2019 11:55
[2019-01-28] MEDS ORDERED: PRED20TA PO (11:58)
--- NOTE | 2019-01-28 11:59 | SNU/HH DC ---
DISCHARGE WITH HOME HEALTH DISCHARGE INFORMATION: Condition on Discharge: Stable CODE STATUS: Code Status: Full HOME HEALTH: Face to Face: I certify this patient is under my care and that I, or a nurse practitioner or physician's physician assistant working with me, had a face to face encounter that meets the physician face to face encounter requirements with this patient on []. Medical Complications: COPD RN For Eval/Treatment: Yes Physical Therapy For: Evalulation/Treatment Occupational Therapy For: Evaluation/Treatment Speech Language Pathology For: Evaluation/Treatment Home Health Aide For: Self-care VP OF TECHNOLOGY For: Community Resources Pt Meets Homebound Status: Fatigue w/ amb. POST DISCHARGE ORDERS: Activity Instructions for Disc: Resume previous activity, Activity as tolerated Weight Bearing Status after Di: No restrictions, Full weight bearing, As tolerated DIET AFTER DISCHARGE: ADA Wound/Incision Care: No wound care needed CHECKS AFTER DISCHARGE: Checks after discharge: Check blood press - daily, Check blood sugar, ac/hs, Weigh Yourself Daily TREATMENT/EQUIPMENT ORDERS: Adaptive Equipment Issued: None, Front wheeled walker Discharge Respiratory Equipmen: Oxygen, Nebulizer CERTIFICATION STATEMENT: Certification Statement: Certification Statement: Based on the above finding, I certify that this patient is confined to the home and needs intermittent alf care, physical t herapy and/or speech therapy, or continues to need occupational therapy.~ This patient is under my care, and I have initiated the establishment of the plan of care.~ This patient will be followed by myself or a community physician who will periodically review the plan of care. Home Meds Active Scripts Albuterol Sulfate (PROAIR HFA INHALER) 8.5 Gm Hfa.aer.ad, 2 PUFF IH PRN Q4-6HRS PRN for wheezing for 21 Days, #1 INHALER 0 Refills Prov:JUSTYN PAL DO 01/17/19 Prednisone (PREDNISONE) 20 Mg Tablet, 2 TAB PO DAILY, #20 TAB Prov:JUSTYN PAL DO 01/17/19 Mag Hydrox/Al Hydrox/Simeth (MAG-AL PLUS XS SUSPENSION) 30 Ml Oral.susp, 30 ML PO PRN DAILY PRN for HEARTBURN / GAS for 10 Days, #120 MISC Prov:TOMAS BAIG MD 12/31/18 Sodium Chloride (DEEP SEA) 44 Ml [place], 1 [place] NS PRN Q1HR PRN for NASAL CO NGESTION for 10 Days, #1 SPRAY Prov:TOMAS BAIG MD 12/31/18 Doxycycline Hyclate (DOXYCYCLINE HYCLATE) 100 Mg Capsule, 1 CAP PO BID for COPD, #14 CAP Prov:TOMAS BAIG MD 12/31/18 Hydrocodone Bit/Acetaminophen (HYDROCODONE-APAP 10-325 ) 1 Tab Tablet, 1 TAB PO PRN Q6HRS PRN for PAIN, #15 TAB 0 Refills Prov:RAI DURANT MD 12/22/18 Lactobacillus Rhamnosus Gg (CULTURELLE) 1 Each Cap.sprink, 1 CAP PO BID for supplement for 30 Days, #60 CAP Prov:TOMAS BAIG MD 11/11/18 Docusate Sodium (COLACE) 100 Mg Capsule, 100 MG PO DAILY for prevent constipation for 30 Days, #30 CAP Prov:TOMAS BAIG MD 11/11/18 Fluticasone Propionate (FLUTICASONE PROPIONATE NASAL SPRAY) 16 Gm [place].susp, 2 SPRAY NS DAILY for allergies for 30 Days, #1 SPRAY Prov:TOMAS BAIG MD 11/11/18 Polyethylene Glycol 3350 (MIRALAX) 119 Gm Powder, 17 GM PO BID, #527 GM Prov:SHAYY GRIFFITH MD 11/03/18 Ipratropium/Albuterol Sulfate (DUONEB 0.5-3(2.5) MG/3 ML) 3 Ml Ampul.neb, 3 ML NEB QID for copd, #120 EACH Prov:RAI DURANT MD 10/28/18 Benzonatate (TESSALON PERLE) 100 Mg Capsule, 1 CAP PO TID for cough, #21 CAP Prov:RAI DURANT MD 10/28/18 Montelukast Sodium (MONTELUKAST SODIUM TABLET ) 10 Mg Tablet, 10 MG PO QHS for copd, #60 TAB Prov:RAI DURANT MD 10/28/18 Lidocaine (Lidocaine PATCH ) 1 Each Adh..patch, 1 EACH TP DAILY for FOR LOCAL PAIN for 30 Days, #30 PATCH REMOVE AFTER 12 HOURS Prov:RAI DURANT MD 09/11/18 Insulin Lispro (HUMALOG) 100 Unit/1 Ml Insuln.pen, 0 UNITS SQ TIDWMEALS for glucose for 30 Days, #1 EACH Prov:TOMAS BAIG MD 08/28/18 Aspirin (ASPIRIN EC) 81 Mg Tablet.dr, 81 MG PO DAILYWBKFT for heart for 30 Days, #30 TAB.SR Prov:TOMAS BAIG MD 08/28/18 Guaifenesin (GUAIFENESIN) 100 Mg/5 Ml Liquid, 200 MG PO PRN Q4HRS PRN for COUGH for 30 Days, #120 LIQUID Prov:TOMAS BAIG MD 05/30/18 Acetaminophen (TYLENOL) 325 Mg Tablet, 650 MG PO PRN Q4HRS PRN for TEMP OVER 100.4F OR MILD PAIN for 10 Days, #30 TAB Prov:TOMAS BAIG MD 05/30/18 Metoclopramide Hcl (REGLAN) 10 Mg Tablet, 0.5 TAB PO QID for gerd for 30 Days, #60 TAB Prov:TOMAS BAIG MD 02/14/18 Reported Medications Tramadol Hcl (TRAMADOL HCL) 50 Mg Tablet, 100 MG PO Q6HRS PRN for PAIN, TAB 01/23/19 Furosemide (LASIX) 40 Mg Tablet, 1 TAB PO DAILY for diuretic for 30 Days, #30 TAB 0 Refills 01/09/19 Ferrous Sulfate (FEOSOL) 325 Mg Tablet, 1 TAB PO DAILY for anemia for 30 Days, #30 TAB 0 Refills 01/09/19 Tramadol Hcl (TRAMADOL HCL) 50 Mg Tablet, 50 MG PO Q6HRS PRN for PAIN, TAB 01/09/19 Prednisone (PREDNISONE ) 10 Mg Tablet, 10 MG PO DAILY for breathing, taper dose, TAB 0 Refills 12/20/18 Lorazepam (ATIVAN) 1 Mg Tablet, 1 MG PO BID for anxiety, TAB 12/20/18 Metformin Hcl (METFORMIN HCL) 500 Mg Tablet, 500 MG PO DAILYWBKFT for ANTI- DIABETIC, TAB 0 Refills 09/09/18 Budesonide (PULMICORT) 0.25 Mg/2 Ml Ampul.neb, 1 VIAL NEB BID for SHORT OF BREATH, #30 VIAL 08/25/18 Cholecalciferol (Vitamin D3) (VITAMIN D3) 5,000 Unit Tablet, 5000 UNIT PO DAILY for supplement, TAB 03/15/18 Potassium Chloride (POTASSIUM CHLORIDE ) 20 Meq Tablet.er, 20 MEQ PO DAILY for supplement, TAB.SR 01/13/18 Pantoprazole Sodium (PROTONIX) 20 Mg Tablet.dr, 2 TAB PO DAILY for gi, #30 TAB 11/18/17 Atorvastatin Calcium (ATORVASTATIN CALCIUM) 10 Mg Tablet, 10 MG PO HS for FOR CHOLESTEROL, #30 TAB 0 Refills 08/21/17 Budesonide/Formoterol Fumarate (SYMBICORT 160-4.5 MCG INHALER) 10.2 Gm Hfa.aer.ad, 2 PUFF IH BID, #10.6 GM 3 Refills 09/21/15 TOMAS BAIG MD Jan 28, 2019 11:59
[2019-01-28] MEDS ORDERED: LORazepam 0.5 MG TABLET PO ONE (14:30)
--- NOTE | 2019-01-28 16:20 | NUR ---
Discharge Note: KAYLA ROMAN JR [address] [place] [address] Discharge instructions and discharge home medications reviewed with Patient and a copy given. All questions have been answered and understanding verbalized. The following instructions and handouts were given: F/U with PCP within one week. Discontinued lines and drains: Peripheral IV intact. Patient discharged to Home or Self Care with taxi cab via Wheelchair.
== END 2019-01-28 16:20 | disposition home or self-care (01) | DRG 189 ==
LOC: ER 22:23 → 6 SOUTH 23:33
PROVIDERS: ADMIT Family Medicine; ATTEND Family Medicine
DX: J96.21 Acute and chronic respiratory failure with hypoxia (principal); I13.0 Hypertensive heart and chronic kidney disease with heart failure and stage 1 through stage 4 chronic kidney disease, or unspecified chronic kidney disease; J43.9 Emphysema, unspecified; E11.22 Type 2 diabetes mellitus with diabetic chronic kidney disease; E78.5 Hyperlipidemia, unspecified; G89.4 Chronic pain syndrome; I25.10 Atherosclerotic heart disease of native coronary artery without angina pectoris; I50.9 Heart failure, unspecified; M81.0 Age-related osteoporosis without current pathological fracture; N18.9 Chronic kidney disease, unspecified; N28.1 Cyst of kidney, acquired; Z82.49 Family history of ischemic heart disease and other diseases of the circulatory system; Z87.891 Personal history of nicotine dependence; Z91.14 Patient's other noncompliance with medication regimen; F41.9 Anxiety disorder, unspecified; M54.5 Low back pain; K21.9 Gastro-esophageal reflux disease without esophagitis
CPT/HCPCS: 36415; 36600; 71045; 80053; 82805; 83880; 85007; 85025; 93005; 94640; 94760; 96374; J1815; J2930; J7512; J7613; J7620; J7626; J8597; 97116; 97530; 99285-25; G0378

== ENCOUNTER 2019-02-12 17:01 | Emergency (ER) | payer MEDICARE, MEDICAID ==
[~2019-02-12] VITALS: Ht 180.3 cm; Wt 72.6 kg
[2019-02-12] MEDS ORDERED: DEXAMETHASONE SOD PHOS 4 MG/ML VIAL IVP ONE (17:30)
[2019-02-12] MEDS ORDERED: IPRATRPIUM/ALBUTEROL 0.5/2.5MG 3 ML NEBU. NEB ONE (17:30)
--- NOTE | 2019-02-12 17:37 | PHYS DOC ---
Past Medical History Past Medical History: Anxiety, Bronchitis, CHF, COPD, Other Additional Past Medical Histor: EMPHYSEMA, OSTEOPOROSIS (BONILLA JONES DO) Past Surgical History: No Surgical History Additional Past Surgical Histo: HERNIA REPAIR (BONILLA JONES DO) Smoking: Quit Greater Than 1 Year Alcohol Use: None Drug Use: None (BONILLA JONES DO) Adult General Chief Complaint Chief Complaint: SHORTNESS OF BREATH HPI HPI Patient is a 58 year old with PMH of end stage COPD (on 3L O2 at home) with multiple exacerbation who presents with acute dyspnea. Pt reports having some SOB that began over an hour ago with 84-87% O2 sat. Reports no chest pain, fever, chill. Yesterday, he was discharged from [facility] after being admitted for 1 week due to PNA and COPD exacerbation. He also endorses moi e nausea. Denies any chest pain or palpitation. (BONILLA JONES DO) Review of Systems Review of Systems Constitutional: Denies fever or chills Eyes: Denies redness or eye pain HENT: Denies nasal congestion or sore throat Respiratory: Positive cough and shortness of breath Cardiovascular: Denies chest pain or palpitations GI: Denies abdominal pain or vomiting; reports nausea : Denies dysuria or hematuria Musculoskeletal: Denies back pain or joint pain Integument: Denies rash or skin lesions Neurologic: Denies headache, focal weakness or sensory changes Complete systems were reviewed and found to be within normal limits, except as documented in this note. (BONILLA JONES DO) Current Medications Current Medications Current Medications Medications (Trade) Dose Ordered Sig/Candy Start Time Stop Time Status Last Admin Dose Admin Albuterol/ Ipratropium (Duoneb) 3 ml 1X ONCE 02/12/19 17:30 02/12/19 17:31 DC 02/12/19 17:36 3 ML Dexamethasone Sodium Phosphate (Decadron) 10 mg 1X ONCE 02/12/19 18:15 02/12/19 18:16 DC 02/12/19 18:19 10 MG Metoclopramide HCl (Reglan Vial) 10 mg 1X ONCE 02/12/19 17:45 02/12/19 17:46 DC 02/12/19 18:20 10 MG (SWATHI CHATTERJEE MD) Allergies Allergies Allergies Coded Allergies Type Severity Reaction Last Updated Verified No Known Medication Allergies Allergy Unknown 08/26/18 Yes (SWATHI CHATTERJEE MD) Physical Exam Physical Exam Constitutional: Well developed, well nourished, no acute distress, non-toxic appearance HENT: Normocephalic, atraumatic, oropharynx moist Eyes: Conjunctiva normal, no discharge Neck: Normal range of motion, no tenderness, supple Cardiovascular: Heart rate normal, regular rhythm Lungs & Thorax: Bilateral breath sounds diminished with diffuse wheezing Abdomen: Soft, no tenderness Skin: Warm, dry, no erythema, no rash Extremities: No tenderness, ROM intact, no edema Neurologic: Alert and oriented X 3, no focal deficits noted Psychologic: Affect normal, judgement normal (BONILLA JONES DO) Current Patient Data Vital Signs Vital Signs Date Time Temp Pulse Resp B/P (MAP) Pulse Ox O2 Delivery O2 Flow Rate FiO2 02/12/19 17:37 100 Nasal Cannula 3.0 02/12/19 17:05 98.5 116 20 101/76 (84) 98.5 (SWATHI CHATTERJEE MD) Lab Values Laboratory Tests Test 02/12/19 17:30 White Blood Count 13.7 x10^3/uL (4.0-11.0) H Red Blood Count 4.27 x10^6/uL (4.30-5.70) L Hemoglobin 12.5 g/dL (13.0-17.5) L Hematocrit 37.3 % (39.0-53.0) L Mean Corpuscular Volume 88 fL (79-100) Mean Corpuscular Hemoglobin 29 pg (25-35) Mean Corpuscular Hemoglobin Concent 33 g/dL (31-37) Red Cell Distribution Width 20.5 % (11.5-14.5) H Platelet Count 248 x10^3/uL (140-400) Neutrophils (%) (Auto) 93 % (31-73) H Lymphocytes (%) (Auto) 2 % (24-48) L Monocytes (%) (Auto) 5 % (0-9) Eosinophils (%) (Auto) 0 % (0-3) Basophils (%) (Auto) 0 % (0-3) Neutrophils # (Auto) 12.7 x10^3/uL (1.8-7.7) H Lymphocytes # (Auto) 0.3 x10^3/uL (1.0-4.8) L Monocytes # (Auto) 0.7 x10^3/uL (0.0-1.1) Eosinophils # (Auto) 0.0 x10^3/uL (0.0-0.7) Basophils # (Auto) 0.0 x10^3/uL (0.0-0.2) Segmented Neutrophils % 95 % (35-66) H Lymphocytes % 1 % (24-48) L Monocytes % 4 % (0-10) Toxic Granulation Slight Toxic Vacuolation Slight Platelet Estimate Adequate (ADEQUATE) Anisocytosis Mod Schistocytes Occ Sodium Level 139 mmol/L (136-145) Potassium Level 4.5 mmol/L (3.5-5.1) Chloride Level 99 mmol/L (98-107) Carbon Dioxide Level 38 mmol/L (21-32) H Anion Gap 2 (6-14) L Blood Urea Nitrogen 14 mg/dL (8-26) Creatinine 0.9 mg/dL (0.7-1.3) Estimated GFR (Cockcroft-Gault) 104.5 BUN/Creatinine Ratio 16 (6-20) Glucose Level 89 mg/dL (70-99) Lactic Acid Level 2.5 mmol/L (0.4-2.0) H Calcium Level 9.4 mg/dL (8.5-10.1) Total Bilirubin 0.4 mg/dL (0.2-1.0) Aspartate Amino Transferase (AST) 30 U/L (15-37) Alanine Aminotransferase (ALT) 29 U/L (16-63) Alkaline Phosphatase 89 U/L (46-116) Creatine Kinase 124 U/L (39-308) Creatine Kinase MB (Mass) 1.8 ng/mL (0.0-3.6) Creatine Kinase MB Relative Index 1.5 % (0-4) Troponin I Quantitative < 0.017 ng/mL (0.000-0.055) TX-Hve-Q-Type Natriuretic Peptide 38 pg/mL (0-124) Total Protein 6.4 g/dL (6.4-8.2) Albumin 3.2 g/dL (3.4-5.0) L Albumin/Globulin Ratio 1.0 (1.0-1.7) Laboratory Tests 02/12/19 17:30 Laboratory Tests 02/12/19 17:30 (SWATHI CHATTERJEE MD) Lab Values Laboratory Tests Test 02/12/19 17:30 White Blood Count 13.7 x10^3/uL (4.0-11.0) H Red Blood Count 4.27 x10^6/uL (4.30-5.70) L Hemoglobin 12.5 g/dL (13.0-17.5) L Hematocrit 37.3 % (39.0-53.0) L Mean Corpuscular Volume 88 fL (79-100) Mean Corpuscular Hemoglobin 29 pg (25-35) Mean Corpuscular Hemoglobin Concent 33 g/dL (31-37) Red Cell Distribution Width 20.5 % (11.5-14.5) H Platelet Count 248 x10^3/uL (140-400) Neutrophils (%) (Auto) 93 % (31-73) H Lymphocytes (%) (Auto) 2 % (24-48) L Monocytes (%) (Auto) 5 % (0-9) Eosinophils (%) (Auto) 0 % (0-3) Basophils (%) (Auto) 0 % (0-3) Neutrophils # (Auto) 12.7 x10^3/uL (1.8-7.7) H Lymphocytes # (Auto) 0.3 x10^3/uL (1.0-4.8) L Monocytes # (Auto) 0.7 x10^3/uL (0.0-1.1) Eosinophils # (Auto) 0.0 x10^3/uL (0.0-0.7) Basophils # (Auto) 0.0 x10^3/uL (0.0-0.2) Platelet Estimate Pending Laboratory Tests 02/12/19 17:30 (BONILLA JONES DO) EKG EKG @1754 Sinus tachycadia at 110bpm, NO ST elevation (BONILLA JONES DO) Radiology/Procedures Radiology/Procedures [] (BONILLA JONES DO) Radiology/Procedures Chest xray without acute process identified, no consolidation (SWATHI CHATTERJEE MD) Course & Med Decision Making Course & Med Decision Making Pertinent Labs and Imaging studies pending. (See chart for details) Patient is a 58 year old with PMH of end stage COPD (on 3L O2 at home) presents with acute dyspnea and hypoxia. Most likely recurrent COPD exacerbation. Denies trauma. Denies chest pain. Labs obtained and pending. CXR also pending. Pt is stable and O2 sat at 98%. Symptomatic treatment provided with respiratory neb and dexamethasone. Sig out to Dr. Chatterjee for further evaluation and final disposition. Discussed current findings and plan with patient, who acknowledges understanding and agreement. (BONILLA JONES DO) Course & Med Decision Making Xray and labs reviewed, patient with lactic acidosis however no findings of infection at this time. SOB - secondary to COPD exacerbation. Recommend dc home with follow up as an outpatient. Currently on home 3L of O2. (SWATHI CHATTERJEE MD) Dragon Disclaimer Dragon Disclaimer This electronic medical record was generated, in whole or in part, using a voice recognition dictation system. (BONILLA JONES DO) Departure Departure Impression: Primary Impression: Acute exacerbation of chronic obstructive pulmonary disease (COPD) Disposition: 01 HOME, SELF-CARE Condition: IMPROVED Referrals: UNKNOWN PCP NAME (PCP) Patient Instructions: Chronic Obstructive Pulmonary Disease Exacerbation, [id number] Additional Instructions: Recommend follow up with PCP 3 - 5 days Return to the ER with worsening symptoms, intractable pain, fever, altered mental status Tylenol/Motrin as needed for fever/pain BONILLA JONES DO Feb 12, 2019 17:37 SWATHI CHATTERJEE MD Feb 12, 2019 18:40
[2019-02-12 17:43] LABS: BASO % 0 % (0-3); EOS % 0 % (0-3); HEMATOCRIT 37.3 % (39.0-53.0); HEMOGLOBIN 12.5 g/dL (13.0-17.5); LYMPH # 0.3 x10^3/uL (1.0-4.8); LYMPH % 2 % (24-48); MEAN CORPUSCULAR HEMOGLOBIN 29 pg (25-35); MEAN CORPUSCULAR HGB CONC 33 g/dL (31-37); MEAN CORPUSCULAR VOLUME 88 fL (79-100); MONO # 0.7 x10^3/uL (0.0-1.1); MONO % 5 % (0-9); NEUT # 12.7 x10^3/uL (1.8-7.7); NEUT % 93 % (31-73); PLATELET COUNT 248 x10^3/uL (140-400); RED BLOOD COUNT 4.27 x10^6/uL (4.30-5.70); RED CELL DISTRIBUTION WIDTH 20.5 % (11.5-14.5); WHITE BLOOD COUNT 13.7 x10^3/uL (4.0-11.0)
[2019-02-12] MEDS ORDERED: METOCLOPRAMIDE HCL 10 MG/2 ML VIAL. IVP ONE (17:45)
[2019-02-12 17:55] LABS: CALCIUM 9.4 mg/dL (8.5-10.1); CREATININE 0.9 mg/dL (0.7-1.3); GFR 104.5
--- NOTE | 2019-02-12 17:58 | RAD ---
PORTABLE CHEST 1V 02/12/2019 5:16 PM INDICATION: Dyspnea COMPARISON: 01/22/2019 TECHNIQUE: Portable frontal view of the chest is provided. FINDINGS: The cardiomediastinal silhouette is similar in appearance. Extensive pulmonary emphysematous changes are present, left greater than right. Bibasilar interstitial changes appears similar. No new airspace consolidation. No pleural effusions or pulmonary vascular congestion. Limited evaluation for pneumothorax in the left secondary to pulmonary emphysematous changes. No definite pneumothorax is visualized. IMPRESSION: COPD changes without acute cardiopulmonary process. Electronically signed by: Noa Akbar MD (02/12/2019 5:55 PM) [facility]
[2019-02-12 18:01] LABS: ALBUMIN 3.2 g/dL (3.4-5.0); TOTAL BILIRUBIN 0.4 mg/dL (0.2-1.0); TOTAL PROTEIN 6.4 g/dL (6.4-8.2)
[2019-02-12 18:02] LABS: POTASSIUM 4.5 mmol/L (3.5-5.1)
[2019-02-12 18:06] LABS: % LYMPHS 1 % (24-48); % MONOS 4 % (0-10); % SEGS 95 % (35-66)
[2019-02-12 18:09] LABS: PLT ESTIMATE ADEQUATE (ADEQUATE); TOXIC GRANULATION SLIGHT; TOXIC VACUOLATION SLIGHT
[2019-02-12 18:10] LABS: ANISOCYTOSIS MOD; SCHISTOCYTES OCC
[2019-02-12] MEDS ORDERED: DEXAMETHASONE SOD PHOS 20 MG/5 ML VIAL. ONE (18:10)
[2019-02-12] MEDS ORDERED: DEXAMETHASONE SOD PHOS 20 MG/5 ML VIAL. IV ONE (18:15)
[2019-02-12 18:50] VITALS: BP 123/80
--- NOTE | 2019-02-13 08:11 | EKG ---
[facility] [address] [place] [address] Test Date: 2019-02-12 Test Time: 17:54:06 Pat Name: KAYLA JONES Department: Room: Gender: Rn Relief Charge: : 1960 Requested By: BONILLA JONES Order Number: [id number] Reading MD: Measurements Intervals [place] Rate: 109 P: 56 NV: 148 QRS: 12 QRSD: 84 T: 54 QT: 312 QTc: 427 Interpretive Statements SINUS TACHYCARDIA S1,S2,S3 PATTERN OTHERWISE NORMAL ECG No previous ECG available for comparison
== END 2019-02-12 19:10 | disposition home or self-care (01) ==
LOC: ER 17:01
DX: J44.1 Chronic obstructive pulmonary disease with (acute) exacerbation (principal); Z86.79 Personal history of other diseases of the circulatory system; Z87.891 Personal history of nicotine dependence
CPT/HCPCS: 36415; 71045; 80053; 82553; 83605; 83880; 84484; 85007; 85025; 93005; 94640; 96374; 96375; 99285; J1100; J2765; J7620

== ENCOUNTER 2019-02-15 19:04 | Emergency (ER) | payer MEDICARE, MEDICAID ==
[~2019-02-15] VITALS: Ht 180.3 cm; Wt 72.6 kg
[2019-02-15 19:57] LABS: BASO % 0 % (0-3); EOS % 0 % (0-3); HEMATOCRIT 36.9 % (39.0-53.0); HEMOGLOBIN 11.9 g/dL (13.0-17.5); LYMPH # 0.3 x10^3/uL (1.0-4.8); LYMPH % 3 % (24-48); MEAN CORPUSCULAR HEMOGLOBIN 29 pg (25-35); MEAN CORPUSCULAR HGB CONC 32 g/dL (31-37); MEAN CORPUSCULAR VOLUME 88 fL (79-100); MONO # 0.7 x10^3/uL (0.0-1.1); MONO % 6 % (0-9); NEUT # 9.4 x10^3/uL (1.8-7.7); NEUT % 91 % (31-73); PLATELET COUNT 206 x10^3/uL (140-400); RED CELL DISTRIBUTION WIDTH 20.9 % (11.5-14.5); WHITE BLOOD COUNT 10.4 x10^3/uL (4.0-11.0)
[2019-02-15] MEDS: methylPREDNISolone SOD SUCC PF 125 MG/2 ML VIAL. IV ONE (20:00)
[2019-02-15 20:06] LABS: PROTHROMBIN TIME PATIENT 11.9 SEC (11.7-14.0)
[2019-02-15 20:07] LABS: CALCIUM 9.3 mg/dL (8.5-10.1); GFR 92.5; POTASSIUM 3.7 mmol/L (3.5-5.1)
[2019-02-15 20:13] LABS: ALBUMIN 3.2 g/dL (3.4-5.0); ALBUMIN/GLOBULIN RATIO 1.1 (1.0-1.7); MAGNESIUM 1.5 mg/dL (1.8-2.4); TOTAL BILIRUBIN 0.3 mg/dL (0.2-1.0)
[2019-02-15] MEDS: IPRATRPIUM/ALBUTEROL 0.5/2.5MG 3 ML NEBU. NEB ONE (20:23)
[2019-02-15 20:27] LABS: % BANDS 2 % (0-9); % LYMPHS 3 % (24-48); % MONOS 6 % (0-10); % SEGS 89 % (35-66)
[2019-02-15 20:28] LABS: ANISOCYTOSIS MOD; OVALOCYTES MOD; POLYCHROMASIA SLIGHT
[2019-02-15 20:29] LABS: PLT ESTIMATE ADEQUATE (ADEQUATE)
--- NOTE | 2019-02-15 21:03 | RAD ---
EXAM: CHEST ONE VIEW. HISTORY: Shortness of breath. COMPARISON: 02/12/2019. FINDINGS: A frontal view of the chest is obtained. There appears to be advanced chronic obstructive pulmonary disease. Bullous changes suspected in the left apex. Linear opacities in the bases most likely indicate atelectasis. There is no pneumothorax or clear pleural effusion. The heart is not enlarged. IMPRESSION: 1. Chronic obstructive pulmonary disease with a large left apical bulla. Bibasilar atelectasis. Electronically signed by: Zurdo Valiente MD (02/15/2019 9:00 PM) [facility]
[2019-02-15] MEDS: MAGNESIUM SULFATE 2GM 50 ML IV ONE (22:30)
[2019-02-15] MEDS: SODIUM CHLORIDE 0.65% NASAL SPRAY 45ML BOTTLE. NS PRN (23:23)
[2019-02-15 23:30] VITALS: BP 119/75
[2019-02-15] MEDS ORDERED: ALBU2.5V8 IH (23:40)
[2019-02-15] MEDS ORDERED: PRED20TA PO (23:40)
--- NOTE | 2019-02-15 23:40 | PHYS DOC ---
Past Medical History Past Medical History: Anxiety, Bronchitis, CHF, COPD, Other Additional Past Medical Histor: EMPHYSEMA, OSTEOPOROSIS Past Surgical History: No Surgical History Additional Past Surgical Histo: HERNIA REPAIR Alcohol Use: None Drug Use: Benzodiazepine Adult General Chief Complaint Chief Complaint: SHORTNESS OF BREATH HPI HPI Patient is a 58 year old male who was brought here by EMS for evaluation of trouble breathing. Patient also complaints of back pain. He had been evaluated here numerous time for the same problem, he had history of COPD. continues to smoke. he denies any chest pain, no abdominal pain, no nausea vomiting. Patient denies any cough or fever. he has chronic back pain, he is on tramadol. All other ROS is negative unless otherwise noted in HPI Review of Systems Review of Systems See above Current Medications Current Medications Current Medications Medications (Trade) Dose Ordered Sig/Candy Start Time Stop Time Status Last Admin Dose Admin Albuterol/ Ipratropium (Duoneb) 3 ml 1X ONCE 02/15/19 20:00 02/15/19 20:01 DC 02/15/19 20:23 3 ML Magnesium Sulfate 50 ml @ 25 mls/hr 1X ONCE 02/15/19 22:30 02/16/19 00:14 DC 02/15/19 22:30 25 MLS/HR Methylprednisolone Sodium Succinate (SOLU-Medrol 125MG VIAL) 125 mg 1X ONCE 02/15/19 20:00 02/15/19 20:01 DC 02/15/19 20:00 125 MG Sodium Chloride (Saline Mist Nasal) 1 elieser PRN Q1HR PRN 02/15/19 20:45 02/16/19 00:14 DC 02/15/19 23:23 1 ELIESER Allergies Allergies Allergies Coded Allergies Type Severity Reaction Last Updated Verified No Known Medication Allergies Allergy Unknown 08/26/18 Yes Physical Exam Physical Exam See above Constitutional: Well developed, well nourished, no acute distress, non-toxic appearance. [] HENT: Normocephalic, atraumatic, bilateral external ears normal, oropharynx moist, no oral exudates, nose normal. [] Eyes: PERRLA, EOMI, conjunctiva normal, no discharge. [] Neck: Normal range of motion, no tenderness, supple, no stridor. [] Cardiovascular:Heart rate regular rhythm, no murmur [] Lungs & Thorax: diffuse expiratory and inspiratory wheezing in all lung lira, no respiratory distress. Abdomen: Bowel sounds normal, soft, no tenderness, no masses, no pulsatile masses. [] Skin: Warm, dry, no erythema, no rash. [] Back: No tenderness, no CVA tenderness. [] Extremities: No tenderness, no cyanosis, no clubbing, ROM intact, no edema. [] Neurologic: Alert and oriented X 3, normal motor function, normal sensory function, no focal deficits noted. [] Psychologic: Affect normal, judgement normal, mood normal. [] Current Patient Data Vital Signs Vital Signs Date Time Temp Pulse Resp B/P (MAP) Pulse Ox O2 Delivery O2 Flow Rate FiO2 02/15/19 23:30 104 24 119/75 (90) 97 Nasal Cannula 3.0 02/15/19 19:50 99.1 99.1 Lab Values Laboratory Tests Test 02/15/19 19:40 White Blood Count 10.4 x10^3/uL (4.0-11.0) Red Blood Count 4.20 x10^6/uL (4.30-5.70) L Hemoglobin 11.9 g/dL (13.0-17.5) L Hematocrit 36.9 % (39.0-53.0) L Mean Corpuscular Volume 88 fL (79-100) Mean Corpuscular Hemoglobin 29 pg (25-35) Mean Corpuscular Hemoglobin Concent 32 g/dL (31-37) Red Cell Distribution Width 20.9 % (11.5-14.5) H Platelet Count 206 x10^3/uL (140-400) Neutrophils (%) (Auto) 91 % (31-73) H Lymphocytes (%) (Auto) 3 % (24-48) L Monocytes (%) (Auto) 6 % (0-9) Eosinophils (%) (Auto) 0 % (0-3) Basophils (%) (Auto) 0 % (0-3) Neutrophils # (Auto) 9.4 x10^3/uL (1.8-7.7) H Lymphocytes # (Auto) 0.3 x10^3/uL (1.0-4.8) L Monocytes # (Auto) 0.7 x10^3/uL (0.0-1.1) Eosinophils # (Auto) 0.0 x10^3/uL (0.0-0.7) Basophils # (Auto) 0.0 x10^3/uL (0.0-0.2) Segmented Neutrophils % 89 % (35-66) H Band Neutrophils % 2 % (0-9) Lymphocytes % 3 % (24-48) L Monocytes % 6 % (0-10) Platelet Estimate Adequate (ADEQUATE) Polychromasia Slight Basophilic Stippling Present Anisocytosis Mod Ovalocytes Mod Prothrombin Time 11.9 SEC (11.7-14.0) Prothrombin Time INR 0.9 (0.8-1.1) Sodium Level 141 mmol/L (136-145) Potassium Level 3.7 mmol/L (3.5-5.1) Chloride Level 99 mmol/L (98-107) Carbon Dioxide Level 37 mmol/L (21-32) H Anion Gap 5 (6-14) L Blood Urea Nitrogen 16 mg/dL (8-26) Creatinine 1.0 mg/dL (0.7-1.3) Estimated GFR (Cockcroft-Gault) 92.5 BUN/Creatinine Ratio 16 (6-20) Glucose Level 137 mg/dL (70-99) H Calcium Level 9.3 mg/dL (8.5-10.1) Magnesium Level 1.5 mg/dL (1.8-2.4) L Total Bilirubin 0.3 mg/dL (0.2-1.0) Aspartate Amino Transferase (AST) 21 U/L (15-37) Alanine Aminotransferase (ALT) 30 U/L (16-63) Alkaline Phosphatase 102 U/L (46-116) Troponin I Quantitative < 0.017 ng/mL (0.000-0.055) TN-Bcr-U-Type Natriuretic Peptide 57 pg/mL (0-124) Total Protein 6.0 g/dL (6.4-8.2) L Albumin 3.2 g/dL (3.4-5.0) L Albumin/Globulin Ratio 1.1 (1.0-1.7) Laboratory Tests 02/15/19 19:40 Laboratory Tests 02/15/19 19:40 EKG EKG [] Radiology/Procedures Radiology/Procedures [][facility] [address] [place] [address] IMAGING REPORT Signed PATIENT: MACIEL JONESIS ACCOUNT: [id number] : 1960 LOCATION: ER AGE: 58 SEX: M EXAM STATUS: REG ER ORD. PHYSICIAN: JUSTYN PAL DO REASON: SOA PROCEDURE: PORTABLE CHEST 1V EXAM: CHEST ONE VIEW. HISTORY: Shortness of breath. COMPARISON: 02/12/2019. FINDINGS: A frontal view of the chest is obtained. There appears to be advanced chronic obstructive pulmonary disease. Bullous changes suspected in the left apex. Linear opacities in the bases most likely indicate atelectasis. There is no pneumothorax or clear pleural effusion. The heart is not enlarged. IMPRESSION: 1. Chronic obstructive pulmonary disease with a large left apical bulla. Bibasilar atelectasis. Electronically signed by: Zurdo Valiente MD (02/15/2019 9:00 PM) [facility] DICTATED and SIGNED BY: ANAT VALIENTE MD DATE: 02/15/19 2100 Course & Med Decision Making Course & Med Decision Making Pertinent Labs and Imaging studies reviewed. (See chart for details) Patient is a 58-year-old male with chronic back pain, chronic COPD, on oxygen at home, had been evaluated here numerous time for the same problem. Patient was given treatment in the ER, he felt much better. Patient has no evidence of pneumonia. He does not need to be admitted to hospital at this time. Dragon Disclaimer Dragon Disclaimer This electronic medical record was generated, in whole or in part, using a voice recognition dictation system. Departure Departure Impression: Primary Impression: COPD with exacerbation Additional Impression: Chronic pain Disposition: HOME, SELF-CARE Condition: STABLE Referrals: UNKNOWN PCP NAME (PCP) FOLLOW UP WITH YOUR DOCTOR NEXT WEEK. Patient Instructions: Chronic Asthmatic Bronchitis, Chronic Obstructive Pulmonary Disease Exacerbation Scripts Albuterol Sulfate (PROAIR HFA INHALER) 8.5 Gm Hfa.aer.ad 2 PUFF IH PRN Q4-6HRS PRN for wheezing for 21 Days, #1 INHALER 0 Refills Prov: JUSTYN PAL DO 02/15/19 Prednisone (PREDNISONE) 20 Mg Tablet 20 MG PO DAILY for 10 Days, #10 TAB Prov: JUSTYN PAL DO 02/15/19 Problem Qualifiers JUSTYN PAL DO Feb 15, 2019 23:40
--- NOTE | 2019-02-16 10:39 | EKG ---
[facility] [address] [place] [address] Test Date: 2019-02-15 Test Time: 20:06:47 Pat Name: KAYLA JONES Department: Room: Gender: Veterinary Medicine Doctor: : 1960 Requested By: JUSTYN PAL Order Number: [id number] Reading MD: Measurements Intervals [place] Rate: 105 P: 118 MA: 152 QRS: 26 QRSD: 86 T: 64 QT: 324 QTc: 432 Interpretive Statements SINUS TACHYCARDIA T ABNORMALITY IN HIGH LATERAL LEADS NON SPECIFIC ST-T ABNORMALITY (ELEVATION) ABNORMAL ECG No previous ECG available for comparison
== END 2019-02-16 00:05 | disposition home or self-care (01) ==
LOC: ER 19:04
DX: J44.1 Chronic obstructive pulmonary disease with (acute) exacerbation (principal); G89.29 Other chronic pain; M54.9 Dorsalgia, unspecified; Z98.890 Other specified postprocedural states
CPT/HCPCS: 36415; 71045; 80053; 83735; 83880; 84484; 85007; 85025; 85610; 93005; 94640; 94760; 96365; 96375; 99285; J2930; J3475; J7620

== ENCOUNTER 2019-03-06 20:20 | Emergency (ER) | payer MEDICARE, MEDICAID ==
[~2019-03-06] VITALS: Ht 177.8 cm; Wt 70.0 kg
[2019-03-06] MEDS ORDERED: IPRATRPIUM/ALBUTEROL 0.5/2.5MG 3 ML NEBU. NEB ONE (22:30)
[2019-03-06] MEDS ORDERED: METH4TAB2 PO (23:53)
[2019-03-06] MEDS ORDERED: HYDR-3164 PO (23:53)
--- NOTE | 2019-03-06 23:54 | PHYS DOC ---
Past Medical History Past Medical History: Anxiety, Bronchitis, CHF, COPD, Other Additional Past Medical Histor: EMPHYSEMA, OSTEOPOROSIS (BONILLA BRAND APRN) Past Surgical History: No Surgical History Additional Past Surgical Histo: HERNIA REPAIR (BONILLA BRAND APRN) Alcohol Use: None Drug Use: Benzodiazepine (BONILLA BRAND APRN) Attending Signature I have participated in the care of this patient and I have reviewed and agree with all pertinent clinical information above including history, exam, and recommendations. (SWATHI RAM MD) Adult General Chief Complaint Chief Complaint: SHORTNESS OF BREATH HPI HPI Patient is a 58 year old male who presents with shortness of breath. The patient has a history of COPD. The patient also states been having back pain. He states he has compression fractures in his back. He is out of pain medication. Denies fever, or cough. Denies any other symptoms. Complete ROS were reviewed and found to be within normal limits, except as documented in the HPI (BONILLA BRAND APRN) Current Medications Current Medications Current Medications Medications (Trade) Dose Ordered Sig/Candy Start Time Stop Time Status Last Admin Dose Admin Acetaminophen/ Hydrocodone Bitart (Lortab 5/325) 1 tab 1X ONCE 03/06/19 23:55 03/06/19 23:56 DC 03/07/19 00:02 1 TAB Albuterol/ Ipratropium (Duoneb) 3 ml 1X ONCE 03/06/19 22:30 03/06/19 22:31 DC 03/06/19 22:29 3 ML Dexamethasone (Decadron) 10 mg 1X ONCE 03/06/19 23:55 03/06/19 23:56 DC 03/07/19 00:01 10 MG (SWATHI RAM MD) Allergies Allergies Allergies Coded Allergies Type Severity Reaction Last Updated Verified acetaminophen Allergy Mild ITCHES 03/01/19 Yes (SWATHI RAM MD) Physical Exam Physical Exam Constitutional: Well developed, well nourished, no acute distress, non-toxic appearance. [] HENT: Normocephalic, atraumatic, bilateral external ears normal, oropharynx moist, no oral exudates, nose normal. [] Eyes: PERRLA, EOMI, conjunctiva normal, no discharge. [] Neck: Normal range of motion, no tenderness, supple, no stridor. [] Cardiovascular:Heart rate regular rhythm, no murmur [] Lungs & Thorax: Bilateral breath sounds have rhonchi diffusely. Abdomen: Bowel sounds normal, soft, no tenderness, no masses, no pulsatile masses. [] Skin: Warm, dry, no erythema, no rash. [] Back: Tenderness in lumbar spine. Extremities: No tenderness, no cyanosis, no clubbing, ROM intact, no edema. [] Neurologic: Alert and oriented X 3, normal motor function, normal sensory function, no focal deficits noted. [] Psychologic: Affect normal, judgement normal, mood normal. [] (BONILLA BRAND APRN) Current Patient Data Vital Signs Vital Signs Date Time Temp Pulse Resp B/P (MAP) Pulse Ox O2 Delivery O2 Flow Rate FiO2 03/06/19 22:26 95 Nasal Cannula 3.0 03/06/19 21:31 109 24 95/66 (76) 03/06/19 20:30 97.8 97.8 (SWATHI RAM MD) EKG EKG [] (BONILLA BRAND APRN) Radiology/Procedures Radiology/Procedures [] (BONILLA BRAND APRN) Course & Med Decision Making Course & Med Decision Making Pertinent Labs and Imaging studies reviewed. (See chart for details) Will give breathing treatment, Decadron, and Lortab. Patient has been having back pain due to compression. Will prescribe Lortab and Medrol dose pack. Patient has inhaler at home. Breath sounds improved after treatment. (BONILLA BRAND APRN) Dragon Disclaimer Dragon Disclaimer This electronic medical record was generated, in whole or in part, using a voice recognition dictation system. (BONILLA BRAND APRN) Departure Departure Impression: Primary Impression: COPD exacerbation Disposition: HOME, SELF-CARE Condition: STABLE Referrals: UNKNOWN PCP NAME (PCP) Patient Instructions: Chronic Obstructive Pulmonary Disease Exacerbation Additional Instructions: Thank you for visiting [facility]. We appreciate you trusting us with your care. If any additional problems come up don't hesitate to return to visit us. Please follow up with your primary care provider so they can plan additional care if needed and know about the problem that you had. If symptoms worsen come back to the Emergency Department. Any concerning symptoms that start such as chest pain, shortness of air, weakness or numbness on one side of the body, running high fevers or any other concerning symptoms return to the ER. Scripts Hydrocodone/Apap 5-325 (NORCO 5-325 TABLET) 1 Each Tablet 1 TAB PO PRN Q6HRS PRN for PAIN for 3 Days, #10 TAB 0 Refills Prov: BONILLA BRAND APRN 03/06/19 Methylprednisolone (MEDROL) 4 Mg Tab.ds.pk 1 PKG PO UD, #1 PKG Prov: BONILLA BRAND APRN 03/06/19 BONILLA BRAND APRN Mar 06, 2019 23:53 SWATHI RAM MD Mar 07, 2019 00:59
[2019-03-06] MEDS ORDERED: DEXAMETHASONE 4 MG TABLET PO ONE (23:55)
[2019-03-06] MEDS ORDERED: HYDROcodone/APAP 5/325MG 1 TAB TABLET PO ONE (23:55)
[2019-03-07 00:12] VITALS: BP 140/100
== END 2019-03-07 00:55 | disposition home or self-care (01) ==
LOC: ER 20:20
DX: J44.1 Chronic obstructive pulmonary disease with (acute) exacerbation (principal); R06.02 Shortness of breath; M54.9 Dorsalgia, unspecified
CPT/HCPCS: 94640; 99284; J7620; J8540

== ENCOUNTER 2019-03-11 17:00 | Inpatient (IN) | payer MEDICARE, MEDICAID ==
[~2019-03-11] VITALS: Ht 180.3 cm; Wt 65.3 kg
[~2019-03-11 17:00] MED LIST changes: +HYDR-3164 PO
[2019-03-11] MEDS ORDERED: IV NORMAL SALINE 1000ML BAG 1,000 ML IV SCH (17:18)
--- NOTE | 2019-03-11 17:31 | PHYS DOC ---
Past Medical History Past Medical History: Anxiety, Bronchitis, CHF, COPD, Other Additional Past Medical Histor: EMPHYSEMA, OSTEOPOROSIS (SHAYY GRIFFITH MD) Past Surgical History: No Surgical History Additional Past Surgical Histo: HERNIA REPAIR (SHAYY GRIFFITH MD) Alcohol Use: None Drug Use: Benzodiazepine (SHAYY GRIFFITH MD) Adult General Chief Complaint Chief Complaint: SHORTNESS OF BREATH HPI HPI Patient is a 58-year-old male, familiar to me from numerous ER visits, who presents to the emergency department for evaluation. He has numerous medical complaints, he states he is feeling short of breath, with a cough productive of yellow sputum, but this is chronic for him. He also reports bilateral kidney pain and feeling anxious. He also reports being hungry. He hasn't seen his emergency Department numerous times already this month, and often goes to as well. He has not had any vomiting. He denies any new chest pain. He has not had any fevers or chills. There are no alleviating or exacerbating factors to his symptoms. (SHAYY GRIFFITH MD) Review of Systems Review of Systems Constitutional: Denies fever or chills [] Eyes: Denies change in visual acuity, redness, or eye pain [] HENT: Denies nasal congestion or sore throat [] Respiratory: No additional information not addressed in HPI [] Cardiovascular: No additional information not addressed in HPI [] GI: Denies abdominal pain, nausea, vomiting, bloody stools or diarrhea [] : Denies dysuria or hematuria [] Musculoskeletal: Denies upper back pain or joint pain [] Integument: Denies rash or skin lesions [] Neurologic: Denies headache, focal weakness or sensory changes [] Endocrine: Denies polyuria or polydipsia [] All other systems were reviewed and found to be within normal limits, except as documented in this note. (SHAYY GRIFFITH MD) Current Medications Current Medications Current Medications Medications (Trade) Dose Ordered Sig/Candy Start Time Stop Time Status Last Admin Dose Admin Lorazepam (Ativan Inj) 1 mg 1X ONCE 03/11/19 17:45 03/11/19 17:46 DC 03/11/19 17:38 1 MG Sodium Chloride 1,000 ml @ 100 mls/hr Q10H 03/11/19 17:18 03/12/19 03:17 03/11/19 17:57 100 MLS/HR (SWATHI RAM MD) Allergies Allergies Allergies Coded Allergies Type Severity Reaction Last Updated Verified acetaminophen Allergy Mild ITCHES 03/01/19 Yes (SWATHI RAM MD) Physical Exam Physical Exam PHYSICAL EXAM: CONSTITUTIONAL: Well developed, well nourished HEAD: normocephalic, atraumatic EENT: PERRL, EOMI. Conjunctivae normal color, sclerae non-icteric; moist mucous membranes. NECK: Supple, non-tender; no meningismus. LUNGS: There are diminished breath sounds diffusely, without any rales, wheezes, or rhonchi. Breathing is mildly labored. HEART: Regular rate and rhythm, no murmur CHEST: No deformity; non-tender ABDOMEN: The abdomen is soft, and non-tender, no masses or bruits. EXTREM: Normal ROM; no deformity, no calf tenderness. Normal pulses palpable in all extremities. There is no pedal edema. SKIN: No rash; no diaphoresis NEURO: Alert; normal speech and cognition; CN's grossly intact; strength grossly intact without focal deficit. BACK: Is mild bilateral CVA TTP, along with diffuse tenderness to palpation of the mid back. PSYCHIATRIC: Patient appears anxious. (SHAYY GRIFFITH MD) Current Patient Data Vital Signs Vital Signs Date Time Temp Pulse Resp B/P (MAP) Pulse Ox O2 Delivery O2 Flow Rate FiO2 03/11/19 17:06 99.0 112 18 151/88 (109) 97 Nasal Cannula 3.0 99.0 (SWATHI RAM MD) Lab Values Laboratory Tests Test 03/11/19 17:24 White Blood Count 8.2 x10^3/uL (4.0-11.0) Red Blood Count 4.24 x10^6/uL (4.30-5.70) L Hemoglobin 12.2 g/dL (13.0-17.5) L Hematocrit 37.8 % (39.0-53.0) L Mean Corpuscular Volume 89 fL (79-100) Mean Corpuscular Hemoglobin 29 pg (25-35) Mean Corpuscular Hemoglobin Concent 32 g/dL (31-37) Red Cell Distribution Width 17.5 % (11.5-14.5) H Platelet Count 224 x10^3/uL (140-400) Neutrophils (%) (Auto) 88 % (31-73) H Lymphocytes (%) (Auto) 5 % (24-48) L Monocytes (%) (Auto) 6 % (0-9) Eosinophils (%) (Auto) 0 % (0-3) Basophils (%) (Auto) 1 % (0-3) Neutrophils # (Auto) 7.2 x10^3/uL (1.8-7.7) Lymphocytes # (Auto) 0.4 x10^3/uL (1.0-4.8) L Monocytes # (Auto) 0.5 x10^3/uL (0.0-1.1) Eosinophils # (Auto) 0.0 x10^3/uL (0.0-0.7) Basophils # (Auto) 0.1 x10^3/uL (0.0-0.2) Segmented Neutrophils % 91 % (35-66) H Lymphocytes % 3 % (24-48) L Monocytes % 6 % (0-10) Platelet Estimate Adequate (ADEQUATE) Anisocytosis Slight Prothrombin Time 12.5 SEC (11.7-14.0) Prothrombin Time INR 1.0 (0.8-1.1) Sodium Level 142 mmol/L (136-145) Potassium Level 4.2 mmol/L (3.5-5.1) Chloride Level 98 mmol/L (98-107) Carbon Dioxide Level 34 mmol/L (21-32) H Anion Gap 10 (6-14) Blood Urea Nitrogen 13 mg/dL (8-26) Creatinine 1.1 mg/dL (0.7-1.3) Estimated GFR (Cockcroft-Gault) 82.9 BUN/Creatinine Ratio 12 (6-20) Glucose Level 105 mg/dL (70-99) H Lactic Acid Level 3.7 mmol/L (0.4-2.0) H Calcium Level 9.0 mg/dL (8.5-10.1) Total Bilirubin 0.4 mg/dL (0.2-1.0) Aspartate Amino Transferase (AST) 18 U/L (15-37) Alanine Aminotransferase (ALT) 20 U/L (16-63) Alkaline Phosphatase 104 U/L (46-116) Troponin I Quantitative < 0.017 ng/mL (0.000-0.055) DY-Ltl-V-Type Natriuretic Peptide 39 pg/mL (0-124) Total Protein 6.2 g/dL (6.4-8.2) L Albumin 3.5 g/dL (3.4-5.0) Albumin/Globulin Ratio 1.3 (1.0-1.7) Lipase 83 U/L (73-393) Laboratory Tests 03/11/19 17:24 Laboratory Tests 03/11/19 17:24 (SWATHI RAM MD) Lab Values Laboratory Tests Test 03/11/19 17:24 White Blood Count 8.2 x10^3/uL (4.0-11.0) Red Blood Count 4.24 x10^6/uL (4.30-5.70) L Hemoglobin 12.2 g/dL (13.0-17.5) L Hematocrit 37.8 % (39.0-53.0) L Mean Corpuscular Volume 89 fL (79-100) Mean Corpuscular Hemoglobin 29 pg (25-35) Mean Corpuscular Hemoglobin Concent 32 g/dL (31-37) Red Cell Distribution Width 17.5 % (11.5-14.5) H Platelet Count 224 x10^3/uL (140-400) Neutrophils (%) (Auto) 88 % (31-73) H Lymphocytes (%) (Auto) 5 % (24-48) L Monocytes (%) (Auto) 6 % (0-9) Eosinophils (%) (Auto) 0 % (0-3) Basophils (%) (Auto) 1 % (0-3) Neutrophils # (Auto) 7.2 x10^3/uL (1.8-7.7) Lymphocytes # (Auto) 0.4 x10^3/uL (1.0-4.8) L Monocytes # (Auto) 0.5 x10^3/uL (0.0-1.1) Eosinophils # (Auto) 0.0 x10^3/uL (0.0-0.7) Basophils # (Auto) 0.1 x10^3/uL (0.0-0.2) Platelet Estimate Pending Sodium Level 142 mmol/L (136-145) Potassium Level 4.2 mmol/L (3.5-5.1) Chloride Level 98 mmol/L (98-107) Carbon Dioxide Level 34 mmol/L (21-32) H Anion Gap 10 (6-14) Blood Urea Nitrogen 13 mg/dL (8-26) Creatinine 1.1 mg/dL (0.7-1.3) Estimated GFR (Cockcroft-Gault) 82.9 BUN/Creatinine Ratio 12 (6-20) Glucose Level 105 mg/dL (70-99) H Calcium Level 9.0 mg/dL (8.5-10.1) Total Bilirubin Pending Aspartate Amino Transferase (AST) Pending Alanine Aminotransferase (ALT) Pending Alkaline Phosphatase Pending Total Protein Pending Albumin Pending Albumin/Globulin Ratio Pending Lipase Pending Laboratory Tests 03/11/19 17:24 Laboratory Tests 03/11/19 17:24 (SHAYY GRIFFITH MD) EKG EKG []Normal sinus rhythm at a rate of 110 bpm, leftward axis, normal intervals. There are no acute ischemic ST/T changes or significant changes compared to lorena ent's prior EKG. (SHAYY GRIFFITH MD) Radiology/Procedures Radiology/Procedures [] (SHAYY GRIFFITH MD) Radiology/Procedures [facility] [address] [place] [address] IMAGING REPORT Signed PATIENT: KAYLA JONES ACCOUNT: [id number] : 1960 LOCATION: ER AGE: 58 SEX: M EXAM STATUS: REG ER ORD. PHYSICIAN: SHAYY GRIFFITH MD REASON: renal pain PROCEDURE: CT ABDOMEN PELVIS WO CONTRAST Examination: CT head pelvis without contrast HISTORY: History of renal pain COMPARISON: 10/13/2018 TECHNIQUE: Axial CT was performed without contrast. Coronal and sagittal reformats are performed. Exposure: One or more of the following individualized dose reduction techniques were utilized for this examination: 1. Automated exposure control 2. Adjustment of the mA and/or kV according to patient size 3. Use of iterative reconstruction technique FINDINGS: Mild bibasilar lung airspace opacities likely atelectasis or infiltrates. Emphysematous changes identified in the left upper lobe of the lung. No evidence of free air identified in the abdomen. The evaluation of the solid organs is limited due to lack of IV contrast. The evaluation of bowel is limited due to lack of oral contrast. The visualized noncontrasted liver, spleen, adrenals grossly appears unremarkable. The stomach is mildly distended. The visualized pancreas grossly appears unremarkable. Small bowel is nondilated. Moderate amount of feces identified throughout the colon. The appendix is not well-visualized. No evidence of intrarenal collecting system calculi or hydronephrosis. The urinary bladder is mildly distended. Moderate degenerative changes lumbar spine. IMPRESSION: 1. No evidence of intrarenal collecting system calculi or hydronephrosis. 2. Moderate amount of feces and gas identified throughout the colon. Correlate for constipation. Electronically signed by: Vinh Mcintyre MD (03/11/2019 6:24 PM) [facility] DICTATED and SIGNED BY: VINH MCINTYRE MD DATE: 03/11/19 1824 [facility] [address] [place] [address] IMAGING REPORT Signed PATIENT: KAYLA JONES ACCOUNT: [id number] : 1960 LOCATION: ER AGE: 58 SEX: M EXAM STATUS: REG ER ORD. PHYSICIAN: SHAYY GRIFFITH MD REASON: SOB PROCEDURE: PORTABLE CHEST 1V EXAM: CHEST 1 VIEW History: Shortness of breath COMPARISON: 03/01/2019 TECHNIQUE: Single portable radiograph of the chest Findings/ impression: Apical bullous changes identified in the left lung similar to prior exam. Bibasilar lung airspace opacities likely atelectasis or infiltrates. Electronically signed by: Vinh Mcintyre MD (03/11/2019 6:00 PM) [facility] DICTATED and SIGNED BY: VINH MCINTYRE MD DATE: 03/11/19 1800 (SWATHI RAM MD) Course & Med Decision Making Course & Med Decision Making 6:00 PM: Patient care will be turned over to Dr. Ram at shift change, pending diagnostic test results and disposition. Report given. Pertinent Labs and Imaging studies reviewed. (See chart for details) [] (SHAYY GRIFFITH MD) Course & Med Decision Making Revise reviewed, lactic acid is 3.7, no acute concerns for sepsis given normal vital signs, afebrile, chronic changes on since chest x-ray. Patient has bilateral flank pain. Will admit patient with COPD exacerbation, flank pain, continue to follow lactic acid. (SWATHI RAM MD) Dragon Disclaimer Dragon Disclaimer This electronic medical record was generated, in whole or in part, using a voice recognition dictation system. (SHAYY GRIFFITH MD) Departure Departure Impression: Primary Impression: Acute exacerbation of chronic obstructive pulmonary disease (COPD) Additional Impressions: Bilateral flank pain Lactic acidosis Disposition: ADMITTED INPATIENT Admitting Physician: HIMS (SWATHI RAM MD) Condition: STABLE Referrals: UNKNOWN PCP NAME (PCP) Problem Qualifiers SHAYY GRIFFITH MD Mar 11, 2019 17:31 SWATHI RAM MD Mar 11, 2019 19:21
[2019-03-11 17:35] LABS: BASO # 0.1 x10^3/uL (0.0-0.2); BASO % 1 % (0-3); EOS % 0 % (0-3); HEMATOCRIT 37.8 % (39.0-53.0); HEMOGLOBIN 12.2 g/dL (13.0-17.5); LYMPH # 0.4 x10^3/uL (1.0-4.8); LYMPH % 5 % (24-48); MEAN CORPUSCULAR HEMOGLOBIN 29 pg (25-35); MEAN CORPUSCULAR HGB CONC 32 g/dL (31-37); MEAN CORPUSCULAR VOLUME 89 fL (79-100); MONO # 0.5 x10^3/uL (0.0-1.1); MONO % 6 % (0-9); NEUT # 7.2 x10^3/uL (1.8-7.7); NEUT % 88 % (31-73); PLATELET COUNT 224 x10^3/uL (140-400); RED BLOOD COUNT 4.24 x10^6/uL (4.30-5.70); RED CELL DISTRIBUTION WIDTH 17.5 % (11.5-14.5); WHITE BLOOD COUNT 8.2 x10^3/uL (4.0-11.0)
[2019-03-11 17:41] LABS: PROTHROMBIN TIME PATIENT 12.5 SEC (11.7-14.0)
[2019-03-11 17:42] LABS: CREATININE 1.1 mg/dL (0.7-1.3); GFR 82.9; POTASSIUM 4.2 mmol/L (3.5-5.1)
[2019-03-11 17:47] LABS: ALBUMIN 3.5 g/dL (3.4-5.0); ALBUMIN/GLOBULIN RATIO 1.3 (1.0-1.7); TOTAL BILIRUBIN 0.4 mg/dL (0.2-1.0); TOTAL PROTEIN 6.2 g/dL (6.4-8.2)
[2019-03-11 17:57] LABS: % LYMPHS 3 % (24-48); % MONOS 6 % (0-10); % SEGS 91 % (35-66); ANISOCYTOSIS SLIGHT; PLT ESTIMATE ADEQUATE (ADEQUATE)
--- NOTE | 2019-03-11 18:03 | RAD ---
EXAM: CHEST 1 VIEW History: Shortness of breath COMPARISON: 03/01/2019 TECHNIQUE: Single portable radiograph of the chest Findings/ impression: Apical bullous changes identified in the left lung similar to prior exam. Bibasilar lung airspace opacities likely atelectasis or infiltrates. Electronically signed by: Vinh Mcintyre MD (03/11/2019 6:00 PM) [facility]
--- NOTE | 2019-03-11 18:27 | RAD ---
Examination: CT head pelvis without contrast HISTORY: History of renal pain COMPARISON: 10/13/2018 TECHNIQUE: Axial CT was performed without contrast. Coronal and sagittal reformats are performed. Exposure: One or more of the following individualized dose reduction techniques were utilized for this examination: 1. Automated exposure control 2. Adjustment of the mA and/or kV according to patient size 3. Use of iterative reconstruction technique FINDINGS: Mild bibasilar lung airspace opacities likely atelectasis or infiltrates. Emphysematous changes identified in the left upper lobe of the lung. No evidence of free air identified in the abdomen. The evaluation of the solid organs is limited due to lack of IV contrast. The evaluation of bowel is limited due to lack of oral contrast. The visualized noncontrasted liver, spleen, adrenals grossly appears unremarkable. The stomach is mildly distended. The visualized pancreas grossly appears unremarkable. Small bowel is nondilated. Moderate amount of feces identified throughout the colon. The appendix is not well-visualized. No evidence of intrarenal collecting system calculi or hydronephrosis. The urinary bladder is mildly distended. Moderate degenerative changes lumbar spine. IMPRESSION: 1. No evidence of intrarenal collecting system calculi or hydronephrosis. 2. Moderate amount of feces and gas identified throughout the colon. Correlate for constipation. Electronically signed by: Vinh Mcintyre MD (03/11/2019 6:24 PM) [facility]
[2019-03-11] MEDS ORDERED: ACETAMINOPHEN 325 MG TABLET. PO PRN (19:30)
[2019-03-11] MEDS ORDERED: ONDANSETRON PF 4 MG/2 ML VIAL. IV PRN (19:30)
[2019-03-11] MEDS ORDERED: predniSONE 20 MG TABLET PO ONE (19:30)
[2019-03-11 20:35] VITALS: BP 117/72
[2019-03-11] MEDS: IPRATRPIUM/ALBUTEROL 0.5/2.5MG 3 ML NEBU. NEB SCH (21:52)
[2019-03-11] MEDS ORDERED: diphenhydrAMINE ORAL ELIXIR 12.5 MG/5 ML ML PO PRN (22:30)
[2019-03-11] MEDS: POLYETHYLENE GLYCOL 3350 17 GM PACKET. PO PRN (22:53)
[2019-03-11] MEDS: LORazepam 0.5 MG TABLET PO PRN (22:53)
[2019-03-11] MEDS: traZODone 50 MG TABLET. PO SCH (22:53)
[2019-03-11 23:00] VITALS: BP 115/67
[2019-03-12] MEDS: traMADol 50 MG TABLET PO PRN ×3 (00:25→21:33)
[2019-03-12 03:00] VITALS: BP 119/66
--- NOTE | 2019-03-12 06:48 | EKG ---
[address] [place] [id number] Test Date: 2019-03-11 Test Time: 17:12:54 Pat Name: KAYLA JONES Department: Room: Gender: Certified Ophthalmic Surgical Assistant: : 1960 Requested By: SHAYY GRIFFITH Order Number: [id number] Reading MD: Measurements Intervals [place] Rate: 110 P: 61 MI: 154 QRS: -24 QRSD: 88 T: 59 QT: 324 QTc: 444 Interpretive Statements SINUS TACHYCARDIA LEFTWARD AXIS S1,S2,S3 PATTERN NO SPECIFIC ECG ABNORMALITIES RI6.01 No previous ECG available for comparison
[2019-03-12 07:00] VITALS: BP 110/70
[2019-03-12] MEDS: IPRATRPIUM/ALBUTEROL 0.5/2.5MG 3 ML NEBU. NEB SCH ×5 (07:31→23:53)
[2019-03-12 08:34] LABS: BASO % 0 % (0-3); EOS % 0 % (0-3); HEMOGLOBIN 10.8 g/dL (13.0-17.5); LYMPH # 0.2 x10^3/uL (1.0-4.8); LYMPH % 3 % (24-48); MEAN CORPUSCULAR HEMOGLOBIN 29 pg (25-35); MEAN CORPUSCULAR HGB CONC 33 g/dL (31-37); MEAN CORPUSCULAR VOLUME 88 fL (79-100); MONO # 0.3 x10^3/uL (0.0-1.1); MONO % 5 % (0-9); NEUT # 5.8 x10^3/uL (1.8-7.7); NEUT % 92 % (31-73); PLATELET COUNT 186 x10^3/uL (140-400); RED BLOOD COUNT 3.74 x10^6/uL (4.30-5.70); RED CELL DISTRIBUTION WIDTH 17.3 % (11.5-14.5); WHITE BLOOD COUNT 6.3 x10^3/uL (4.0-11.0)
[2019-03-12 08:48] LABS: ALBUMIN 2.7 g/dL (3.4-5.0); CALCIUM 8.5 mg/dL (8.5-10.1); CREATININE 0.8 mg/dL (0.7-1.3); GFR 119.7; POTASSIUM 4.1 mmol/L (3.5-5.1); TOTAL BILIRUBIN 0.4 mg/dL (0.2-1.0); TOTAL PROTEIN 5.5 g/dL (6.4-8.2)
--- NOTE | 2019-03-12 10:38 | PDOC1 ---
History and Physical Date of Admission Date of Admission DATE: 03/12/19 TIME: 10:37 Identification/Chief Complaint Chief Complaint KNOWN HX ES LUNG DISEASE numerous medical complaints, he states he is feeling short of breath, with a cough productive of yellow sputum, He also reports bilateral kidney pain and feeling anxious. He also reports being hungry. He hasn't seen his emergency Department numerous times already this month, and often goes to as well. Past Medical History Past Medical History Past Medical History Cardiovascular: CHF, HTN, Hyperlipidemia, Other Pulmonary: Asthma, COPD, Pneumonia, Other CENTRAL NERVOUS SYSTEM: Other GI: GERD Heme/Onc: No pertinent hx Hepatobiliary: No pertinent hx Psych: Anxiety Rheumatologic: No pertinent hx Infectious disease: No pertinent hx Renal/: Chronic renal insuff Endocrine: Diabetes Past Surgical History Past Surgical History: Hernia Repair Family History Family History: Coronary Artery Disease, Hypertension Social History ALCOHOL: none Drugs: None Cardiovascular: CHF, HTN, Hyperlipidemia, Other Pulmonary: Asthma, COPD, Pneumonia, Other CENTRAL NERVOUS SYSTEM: Other GI: GERD Heme/Onc: No pertinent hx Hepatobiliary: No pertinent hx Psych: Anxiety Musculoskeletal: low back pain, Osteoarthritis, Weakness Rheumatologic: No pertinent hx Infectious disease: No pertinent hx Renal/: Chronic renal insuff Endocrine: Diabetes Past Surgical History Past Surgical History: Hernia Repair Family History Family History: Coronary Artery Disease, Hypertension Social History Smoke: Quit ALCOHOL: none Drugs: None Current Problem List Problem List Problems Medical Problems: (1) Acute exacerbation of chronic obstructive pulmonary disease (COPD) Status: Acute (2) Bilateral flank pain Status: Acute Current Medications Current Medications Current Medications Sodium Chloride 1,000 ml @ 100 mls/hr Q10H IV Last administered on 03/11/19at 17:57; Start 03/11/19 at 17:18; Stop 03/12/19 at 03:17; Status DC Lorazepam (Ativan Inj) 1 mg 1X ONCE IVP Last administered on 03/11/19at 17:38; Start 03/11/19 at 17:45; Stop 03/11/19 at 17:46; Status DC Ondansetron HCl (Zofran) 4 mg PRN Q8HRS PRN IV NAUSEA/VOMITING; Start 03/11/19 at 19:30; Stop 03/12/19 at 19:29 Acetaminophen (Tylenol) 650 mg PRN Q4HRS PRN PO FEVER; Start 03/11/19 at 19:30; Stop 03/12/19 at 19:29; Status UNV Albuterol/ Ipratropium (Duoneb) 3 ml RTQID NEB Last administered on 03/12/19at 07:31; Start 03/11/19 at 20:00; Stop 03/12/19 at 19:59 Levofloxacin/ Dextrose 150 ml @ 100 mls/hr 1X ONCE IV Last administered on 03/11/19at 19:42; Start 03/11/19 at 19:30; Stop 03/11/19 at 20:59; Status DC Prednisone (Prednisone) 60 mg 1X ONCE PO Last administered on 03/11/19at 19:42; Start 03/11/19 at 19:30; Stop 03/11/19 at 19:33; Status DC Lorazepam (Ativan) 0.5 mg PRN Q6HRS PRN PO ANXIETY / AGITATION Last administered on 03/11/19at 22:53; Start 03/11/19 at 22:30 Diphenhydramine HCl (Benadryl Oral Elixir) 25 mg PRN Q4HRS PRN PO ITCHING Last administered on 03/11/19at 22:53; Start 03/11/19 at 22:30 Polyethylene Glycol (miraLAX PACKET) 17 gm PRN DAILY PRN PO CONSTIPATION Last administered on 03/11/19at 22:53; Start 03/11/19 at 22:30 Trazodone HCl (Desyrel) 50 mg QHS PO Last administered on 03/11/19at 22:53; Start 03/11/19 at 22:45 Tramadol HCl (Ultram) 50 mg PRN Q6HRS PRN PO PAIN Last administered on 03/12/19at 10:22; Start 03/12/19 at 00:15 Active Scripts Active Collins 5-325 Tablet (Acetaminophen/Hydrocodone Bitart) 1 Each Tablet 1 Tab PO PRN Q6HRS PRN 3 Days Medrol (Methylprednisolone) 4 Mg Tab.ds.pk 1 Pkg PO UD Doxycycline Hyclate 100 Mg Tablet 100 Mg PO BID 4 Days Proair Hfa Inhaler (Albuterol Sulfate) 8.5 Gm Hfa.aer.ad 2 Puff IH PRN Q4-6HRS PRN 21 Days Prednisone 20 Mg Tablet 20 Mg PO DAILY 10 Days Prednisone 20 Mg Tablet 40 Mg PO DAILY 10 Days Proair Hfa Inhaler (Albuterol Sulfate) 8.5 Gm Hfa.aer.ad 2 Puff IH PRN Q4-6HRS PRN 21 Days Mag-Al Plus Xs Suspension (Mag Hydrox/Al Hydrox/Simeth) 30 Ml Oral.susp 30 Ml PO PRN DAILY PRN 10 Days Deep Sea (Sodium Chloride) 44 Ml Hood 1 Angel NS PRN Q1HR PRN 10 Days Hydrocodone-Apap 10-325 (Hydrocodone Bit/Acetaminophen) 1 Tab Tablet 1 Tab PO PRN Q6HRS PRN Culturelle (Lactobacillus Rhamnosus Gg) 1 Each Cap.sprink 1 Cap PO BID 30 Days Colace (Docusate Sodium) 100 Mg Capsule 100 Mg PO DAILY 30 Days Fluticasone Propionate Nasal Hood (Fluticasone Propionate) 16 Gm Hood.susp 2 Hood NS DAILY 30 Days Miralax (Polyethylene Glycol 3350) 119 Gm Powder 17 Gm PO BID Duoneb 0.5-3(2.5) Mg/3 Ml (Albuterol/Ipratropium) 3 Ml Ampul.neb 3 Ml NEB QID Tessalon Perle (Benzonatate) 100 Mg Capsule 1 Cap PO TID Montelukast Sodium Tablet (Montelukast Sodium) 10 Mg Tablet 10 Mg PO QHS Lidocaine PATCH (Lidocaine) 1 Each Adh..patch 1 Each TP DAILY 30 Days REMOVE AFTER 12 HOURS Humalog (Insulin Lispro) 100 Unit/1 Ml Insuln.pen 0 Units SQ TIDWMEALS 30 Days Aspirin Ec (Aspirin) 81 Mg Tablet.dr 81 Mg PO DAILYWBKFT 30 Days Guaifenesin 100 Mg/5 Ml Liquid 200 Mg PO PRN Q4HRS PRN 30 Days Tylenol (Acetaminophen) 325 Mg Tablet 650 Mg PO PRN Q4HRS PRN 10 Days Reglan (Metoclopramide Hcl) 10 Mg Tablet 0.5 Tab PO QID 30 Days Reported Lasix (Furosemide) 40 Mg Tablet 1 Tab PO DAILY 30 Days Feosol (Ferrous Sulfate) 325 Mg Tablet 1 Tab PO DAILY 30 Days Tramadol Hcl 50 Mg Tablet 50 Mg PO Q6HRS PRN Ativan (Lorazepam) 1 Mg Tablet 1 Mg PO BID Metformin Hcl 500 Mg Tablet 500 Mg PO DAILYWBKFT Vitamin D3 (Cholecalciferol (Vitamin D3)) 5,000 Unit Tablet 5,000 Unit PO DAILY Potassium Chloride (Potassium Chloride) 20 Meq Tablet.er 20 Meq PO DAILY Protonix (Pantoprazole Sodium) 20 Mg Tablet.dr 2 Tab PO DAILY Atorvastatin Calcium 10 Mg Tablet 10 Mg PO HS Symbicort 160-4.5 Mcg Inhaler (Budesonide/Formoterol Fumarate) 10.2 Gm Hfa.aer.ad 2 Puff IH BID Allergies Allergies: Coded Allergies: acetaminophen (Verified Allergy, Intermediate, ITCHES, 03/12/19) ROS Review of System Review of Systems Review of Systems Constitutional: Denies fever or chills [] Eyes: Denies change in visual acuity, redness, or eye pain [] HENT: Denies nasal congestion or sore throat [] Respiratory: No additional information not addressed in HPI [] Cardiovascular: No additional information not addressed in HPI [] GI: Denies abdominal pain, nausea, vomiting, bloody stools or diarrhea [] : Denies dysuria or hematuria [] Musculoskeletal: Denies upper back pain or joint pain [] Integument: Denies rash or skin lesions [] Neurologic: Denies headache, focal weakness or sensory changes [] Endocrine: Denies polyuria or polydipsia [] 14 PT systems were reviewed and found to be within normal limits, except as documented . PSYCHOLOGICAL ROS: YES: Anxiety Hematological and Lymphatic: No: Bleeding Problems, Blood Clots, Blood Transfusions, Brusing, Night Sweats, Pallor, Swollen Lymph Nodes, Other Respiratory: YES: Cough, Shortness of breath, SOB with excertion Physical Exam Physical Exam HEAD: normocephalic, atraumatic EENT: PERRL, EOMI. Conjunctivae normal color, sclerae non-icteric; moist mucous membranes. NECK: Supple, non-tender; no meningismus. LUNGS: There are diminished breath sounds diffusely, without any rales, wheezes, or rhonchi. Breathing is mildly labored. HEART: Regular rate and rhythm, no murmur CHEST: No deformity; non-tender ABDOMEN: The abdomen is soft, and non-tender, no masses or bruits. EXTREM: Normal ROM; no deformity, no calf tenderness. Normal pulses palpable in all extremities. There is no pedal edema. SKIN: No rash; no diaphoresis NEURO: Alert; normal speech and cognition; CN's grossly intact; strength grossly intact without focal deficit. BACK: Is mild bilateral CVA TTP, along with diffuse tenderness to palpation of the mid back. PSYCHIATRIC: Patient appears anxious. General: Alert, Oriented X3, Cooperative, mild distress HEENT: Mucous membr. moist/pink Lungs: Other (diminished) Heart: RRR Breasts: Not examined Abdomen: Soft Rectal Exam: not examined PELVIC: Examination not indicated Extremities: No cyanosis Neuro: Normal speech, Cranial nerves 3-12 NL Psych/Mental Status: Mental status NL, Mood NL Vitals Vitals Vital Signs Date Time Temp Pulse Resp B/P (MAP) Pulse Ox O2 Delivery O2 Flow Rate FiO2 03/12/19 10:22 Nasal Cannula 3.0 03/12/19 07:32 100 03/12/19 07:00 97.7 58 16 110/70 (83) 97.7 Labs Labs Laboratory Tests Test 03/11/19 17:24 03/11/19 21:00 03/12/19 08:15 White Blood Count 8.2 x10^3/uL (4.0-11.0) 6.3 x10^3/uL (4.0-11.0) Red Blood Count 4.24 x10^6/uL (4.30-5.70) 3.74 x10^6/uL (4.30-5.70) Hemoglobin 12.2 g/dL (13.0-17.5) 10.8 g/dL (13.0-17.5) Hematocrit 37.8 % (39.0-53.0) 33.0 % (39.0-53.0) Mean Corpuscular Volume 89 fL (79-100) 88 fL (79-100) Mean Corpuscular Hemoglobin 29 pg (25-35) 29 pg (25-35) Mean Corpuscular Hemoglobin Concent 32 g/dL (31-37) 33 g/dL (31-37) Red Cell Distribution Width 17.5 % (11.5-14.5) 17.3 % (11.5-14.5) Platelet Count 224 x10^3/uL (140-400) 186 x10^3/uL (140-400) Neutrophils (%) (Auto) 88 % (31-73) 92 % (31-73) Lymphocytes (%) (Auto) 5 % (24-48) 3 % (24-48) Monocytes (%) (Auto) 6 % (0-9) 5 % (0-9) Eosinophils (%) (Auto) 0 % (0-3) 0 % (0-3) Basophils (%) (Auto) 1 % (0-3) 0 % (0-3) Neutrophils # (Auto) 7.2 x10^3/uL (1.8-7.7) 5.8 x10^3/uL (1.8-7.7) Lymphocytes # (Auto) 0.4 x10^3/uL (1.0-4.8) 0.2 x10^3/uL (1.0-4.8) Monocytes # (Auto) 0.5 x10^3/uL (0.0-1.1) 0.3 x10^3/uL (0.0-1.1) Eosinophils # (Auto) 0.0 x10^3/uL (0.0-0.7) 0.0 x10^3/uL (0.0-0.7) Basophils # (Auto) 0.1 x10^3/uL (0.0-0.2) 0.0 x10^3/uL (0.0-0.2) Segmented Neutrophils % 91 % (35-66) Lymphocytes % 3 % (24-48) Monocytes % 6 % (0-10) Platelet Estimate Adequate (ADEQUATE) Anisocytosis Slight Prothrombin Time 12.5 SEC (11.7-14.0) Prothromb Time International Ratio 1.0 (0.8-1.1) Sodium Level 142 mmol/L (136-145) 140 mmol/L (136-145) Potassium Level 4.2 mmol/L (3.5-5.1) 4.1 mmol/L (3.5-5.1) Chloride Level 98 mmol/L (98-107) 99 mmol/L (98-107) Carbon Dioxide Level 34 mmol/L (21-32) 34 mmol/L (21-32) Anion Gap 10 (6-14) 7 (6-14) Blood Urea Nitrogen 13 mg/dL (8-26) 12 mg/dL (8-26) Creatinine 1.1 mg/dL (0.7-1.3) 0.8 mg/dL (0.7-1.3) Estimated GFR (Cockcroft-Gault) 82.9 119.7 BUN/Creatinine Ratio 12 (6-20) 15 (6-20) Glucose Level 105 mg/dL (70-99) 142 mg/dL (70-99) Lactic Acid Level 3.7 mmol/L (0.4-2.0) 1.5 mmol/L (0.4-2.0) Calcium Level 9.0 mg/dL (8.5-10.1) 8.5 mg/dL (8.5-10.1) Total Bilirubin 0.4 mg/dL (0.2-1.0) 0.4 mg/dL (0.2-1.0) Aspartate Amino Transf (AST/SGOT) 18 U/L (15-37) 15 U/L (15-37) Alanine Aminotransferase (ALT/SGPT) 20 U/L (16-63) 16 U/L (16-63) Alkaline Phosphatase 104 U/L (46-116) 85 U/L (46-116) Troponin I Quantitative < 0.017 ng/mL (0.000-0.055) FN-Dzz-C-Type Natriuretic Peptide 39 pg/mL (0-124) Total Protein 6.2 g/dL (6.4-8.2) 5.5 g/dL (6.4-8.2) Albumin 3.5 g/dL (3.4-5.0) 2.7 g/dL (3.4-5.0) Albumin/Globulin Ratio 1.3 (1.0-1.7) 1.0 (1.0-1.7) Lipase 83 U/L (73-393) Laboratory Tests Test 03/11/19 17:24 03/11/19 21:00 03/12/19 08:15 White Blood Count 8.2 x10^3/uL (4.0-11.0) 6.3 x10^3/uL (4.0-11.0) Red Blood Count 4.24 x10^6/uL (4.30-5.70) 3.74 x10^6/uL (4.30-5.70) Hemoglobin 12.2 g/dL (13.0-17.5) 10.8 g/dL (13.0-17.5) Hematocrit 37.8 % (39.0-53.0) 33.0 % (39.0-53.0) Mean Corpuscular Volume 89 fL (79-100) 88 fL (79-100) Mean Corpuscular Hemoglobin 29 pg (25-35) 29 pg (25-35) Mean Corpuscular Hemoglobin Concent 32 g/dL (31-37) 33 g/dL (31-37) Red Cell Distribution Width 17.5 % (11.5-14.5) 17.3 % (11.5-14.5) Platelet Count 224 x10^3/uL (140-400) 186 x10^3/uL (140-400) Neutrophils (%) (Auto) 88 % (31-73) 92 % (31-73) Lymphocytes (%) (Auto) 5 % (24-48) 3 % (24-48) Monocytes (%) (Auto) 6 % (0-9) 5 % (0-9) Eosinophils (%) (Auto) 0 % (0-3) 0 % (0-3) Basophils (%) (Auto) 1 % (0-3) 0 % (0-3) Neutrophils # (Auto) 7.2 x10^3/uL (1.8-7.7) 5.8 x10^3/uL (1.8-7.7) Lymphocytes # (Auto) 0.4 x10^3/uL (1.0-4.8) 0.2 x10^3/uL (1.0-4.8) Monocytes # (Auto) 0.5 x10^3/uL (0.0-1.1) 0.3 x10^3/uL (0.0-1.1) Eosinophils # (Auto) 0.0 x10^3/uL (0.0-0.7) 0.0 x10^3/uL (0.0-0.7) Basophils # (Auto) 0.1 x10^3/uL (0.0-0.2) 0.0 x10^3/uL (0.0-0.2) Segmented Neutrophils % 91 % (35-66) Lymphocytes % 3 % (24-48) Monocytes % 6 % (0-10) Platelet Estimate Adequate (ADEQUATE) Anisocytosis Slight Prothrombin Time 12.5 SEC (11.7-14.0) Prothromb Time International Ratio 1.0 (0.8-1.1) Sodium Level 142 mmol/L (136-145) 140 mmol/L (136-145) Potassium Level 4.2 mmol/L (3.5-5.1) 4.1 mmol/L (3.5-5.1) Chloride Level 98 mmol/L (98-107) 99 mmol/L (98-107) Carbon Dioxide Level 34 mmol/L (21-32) 34 mmol/L (21-32) Anion Gap 10 (6-14) 7 (6-14) Blood Urea Nitrogen 13 mg/dL (8-26) 12 mg/dL (8-26) Creatinine 1.1 mg/dL (0.7-1.3) 0.8 mg/dL (0.7-1.3) Estimated GFR (Cockcroft-Gault) 82.9 119.7 BUN/Creatinine Ratio 12 (6-20) 15 (6-20) Glucose Level 105 mg/dL (70-99) 142 mg/dL (70-99) Lactic Acid Level 3.7 mmol/L (0.4-2.0) 1.5 mmol/L (0.4-2.0) Calcium Level 9.0 mg/dL (8.5-10.1) 8.5 mg/dL (8.5-10.1) Total Bilirubin 0.4 mg/dL (0.2-1.0) 0.4 mg/dL (0.2-1.0) Aspartate Amino Transf (AST/SGOT) 18 U/L (15-37) 15 U/L (15-37) Alanine Aminotransferase (ALT/SGPT) 20 U/L (16-63) 16 U/L (16-63) Alkaline Phosphatase 104 U/L (46-116) 85 U/L (46-116) Troponin I Quantitative < 0.017 ng/mL (0.000-0.055) XH-Qwm-X-Type Natriuretic Peptide 39 pg/mL (0-124) Total Protein 6.2 g/dL (6.4-8.2) 5.5 g/dL (6.4-8.2) Albumin 3.5 g/dL (3.4-5.0) 2.7 g/dL (3.4-5.0) Albumin/Globulin Ratio 1.3 (1.0-1.7) 1.0 (1.0-1.7) Lipase 83 U/L (73-393) VTE Prophylaxis Ordered VTE Prophylaxis Devices: No VTE Pharmacological Prophylaxi: Yes Assessment/Plan Assessment/Plan IMPRESSION 1. Acute on chronic HYPOXIC respiratory failure secondary to acute exacerbation of chronic obstructive pulmonary disease and acute bronchitis. 2. Abnormal chest x-ray. 3. Acute exacerbation of chronic obstructive pulmonary disease. 4. Acute bronchitis. 5. END STAGE LUNG DISEASE 6. Very severe chronic obstructive pulmonary disease. 7. Ex-smoker. 8. back pain Plan . 1. Titrate FiO2 to keep O2 saturation 92%. 2. Bronchodilator. 3. Inhaled corticosteroid. 4. steroid taper 5. CONSULT PULM 6. Lovenox for deep vein thrombosis prophylaxis. 7. Protonix for stress ulcer prophylaxis. 8. The patient is being evaluated for lung transplant at [facility] 9. Continue not smoking. 10. Add BIPAP qhs 11. pain control 12. ua 13. miralax TOMAS BAIG MD Mar 12, 2019 10:38
[2019-03-12 11:00] VITALS: BP 112/70
[2019-03-12] MEDS ORDERED: SODIUM CHLORIDE 0.65% NASAL SPRAY 45ML BOTTLE. NS PRN (14:30)
[2019-03-12] MEDS ORDERED: NON FORMULARY ITEM (Methylprednisolone (Medrol) 1 PKG) PO SCH (14:30)
[2019-03-12] MEDS ORDERED: guaiFENesin ORAL 200 MG/10 ML LIQUID. PO PRN ×2 (14:30→15:30)
[2019-03-12] MEDS ORDERED: MAG HYDROX/ALUMINUM HYD/SIMETH 30 ML ORAL.SUSP PO PRN ×2 (14:30→15:30)
[2019-03-12 15:00] VITALS: BP 127/70
[2019-03-12] MEDS: FLUTICASONE 50MCG/NASAL SPRAY 16GM BOTTLE. NS SCH (15:00)
[2019-03-12] MEDS: LIDOCAINE (700MG/PATCH) PATCH. TP SCH (15:00)
[2019-03-12] MEDS ORDERED: POLYETHYLENE GLYCOL 3350 17 GM PACKET. PO SCH (15:00)
[2019-03-12] MEDS: BUDESONIDE 0.5 MG/2 ML NEBU. NEB SCH ×2 (15:15→20:12)
[2019-03-12] MEDS ORDERED: 0.9 % SODIUM CHLORIDE 10 ML DISP.SYRIN. IV PRN (15:30)
[2019-03-12] MEDS ORDERED: ACETAMINOPHEN 325 MG TABLET. PO PRN (15:30)
[2019-03-12] MEDS ORDERED: cloNIDine HCL 0.1 MG TABLET PO PRN (15:30)
[2019-03-12] MEDS ORDERED: DOCUSATE SODIUM 100 MG CAPSULE. PO PRN (15:30)
[2019-03-12] MEDS ORDERED: ONDANSETRON PF 4 MG/2 ML VIAL. IV PRN (15:30)
[2019-03-12] MEDS ORDERED: IPRATRPIUM/ALBUTEROL 0.5/2.5MG 3 ML NEBU. NEB SCH (16:00)
[2019-03-12] MEDS: PANTOPRAZOLE 40 MG TABLET.DR. PO SCH (16:47)
[2019-03-12] MEDS: POLYETHYLENE GLYCOL 3350 17 GM PACKET. PO PRN (16:47)
[2019-03-12] MEDS: CHOLECALCIFEROL (VITAMIN D3) 5,000 UNIT CAPSULE PO SCH (16:48)
[2019-03-12] MEDS: BENZONATATE 100 MG CAPSULE. PO SCH ×2 (16:48→21:22)
[2019-03-12] MEDS: predniSONE 20 MG TABLET PO SCH (16:48)
[2019-03-12] MEDS: METOCLOPRAMIDE 5 MG TABLET. PO SCH ×2 (16:48→21:29)
[2019-03-12] MEDS: metFORMIN 500 MG TABLET PO SCH (16:48)
[2019-03-12] MEDS: DOCUSATE SODIUM 100 MG CAPSULE. PO SCH (16:48)
[2019-03-12] MEDS: LACTOBACILLUS RHAMNOSUS GG 1 CAPSULE. PO SCH ×2 (16:48→21:22)
[2019-03-12] MEDS: FERROUS SULFATE 325 MG TABLET. PO SCH (16:48)
[2019-03-12] MEDS: LORazepam 1 MG TABLET PO SCH ×2 (16:49→21:22)
[2019-03-12] MEDS: DOXYCYCLINE HYCLATE 100 MG TABLET PO SCH ×2 (16:49→21:22)
[2019-03-12] MEDS: POTASSIUM CHLORIDE 20 MEQ TABLET.ER. PO SCH (16:49)
[2019-03-12] MEDS: FUROSEMIDE 40 MG TABLET. PO SCH (16:49)
[2019-03-12] MEDS: INSULIN LISPRO 300 UNITS/3 ML VIAL. SQ SCH (16:50)
[2019-03-12] MEDS ORDERED: IPRATRPIUM/ALBUTEROL 0.5/2.5MG 3 ML NEBU. NEB PRN (17:30)
[2019-03-12] MEDS ORDERED: ALBUTEROL SULFATE 2.5 MG/3 ML NEBU. NEB PRN (18:15)
[2019-03-12 19:00] VITALS: BP 102/63
[2019-03-12] MEDS: ENOXAPARIN 40 MG/0.4 ML SYRINGE. SQ SCH (21:00)
[2019-03-12] MEDS: PATCH REMOVAL. MC SCH (21:00)
[2019-03-12] MEDS: MONTELUKAST SODIUM 10 MG TABLET. PO SCH (21:22)
[2019-03-12] MEDS: traZODone 50 MG TABLET. PO SCH (21:22)
[2019-03-12] MEDS: ATORVASTATIN CALCIUM 10 MG TABLET. PO SCH (21:22)
[2019-03-12 23:00] VITALS: BP 106/66
[2019-03-12 23:08] LABS: BILIRUBIN,URINE NEGATIVE (NEG); CLARITY,URINE CLEAR; COLOR,URINE YELLOW; NITRITE,URINE NEGATIVE (NEG); PROTEIN,URINE NEGATIVE (NEG-TRACE); UROBILINOGEN,URINE 0.2 mg/dL (0.2 mg/dL)
[2019-03-12 23:11] LABS: BACTERIA,URINE 0 /HPF (0-FEW); RBC,URINE 0 /HPF (0-2); SQUAMOUS EPITHELIAL CELL,UR FEW /LPF; WBC,URINE 0 /HPF (0-4)
[2019-03-13 03:00] VITALS: BP 115/73
[2019-03-13] MEDS: IPRATRPIUM/ALBUTEROL 0.5/2.5MG 3 ML NEBU. NEB SCH ×6 (03:47→23:30)
[2019-03-13 07:00] VITALS: BP 119/76
[2019-03-13] MEDS: BUDESONIDE 0.5 MG/2 ML NEBU. NEB SCH ×2 (07:15→20:47)
[2019-03-13] MEDS: INSULIN LISPRO 300 UNITS/3 ML VIAL. SQ SCH ×3 (08:00→17:00)
[2019-03-13] MEDS: CHOLECALCIFEROL (VITAMIN D3) 5,000 UNIT CAPSULE PO SCH (08:44)
[2019-03-13] MEDS: metFORMIN 500 MG TABLET PO SCH (08:45)
[2019-03-13] MEDS: POTASSIUM CHLORIDE 20 MEQ TABLET.ER. PO SCH (08:45)
[2019-03-13] MEDS: predniSONE 20 MG TABLET PO SCH (08:45)
[2019-03-13] MEDS: FUROSEMIDE 40 MG TABLET. PO SCH (08:45)
[2019-03-13] MEDS: ASPIRIN ENTERIC COATED 81 MG TABLET.DR. PO SCH (08:45)
[2019-03-13] MEDS: PANTOPRAZOLE 40 MG TABLET.DR. PO SCH (08:45)
[2019-03-13] MEDS: LACTOBACILLUS RHAMNOSUS GG 1 CAPSULE. PO SCH ×2 (08:45→20:34)
[2019-03-13] MEDS: BENZONATATE 100 MG CAPSULE. PO SCH ×3 (08:45→20:34)
[2019-03-13] MEDS: LORazepam 1 MG TABLET PO SCH ×2 (08:45→20:49)
[2019-03-13] MEDS: DOCUSATE SODIUM 100 MG CAPSULE. PO SCH (08:45)
[2019-03-13] MEDS: DOXYCYCLINE HYCLATE 100 MG TABLET PO SCH ×2 (08:46→20:34)
[2019-03-13] MEDS: LIDOCAINE (700MG/PATCH) PATCH. TP SCH ×2 (08:46→09:00)
[2019-03-13] MEDS: traMADol 50 MG TABLET PO PRN ×2 (08:46→19:23)
[2019-03-13] MEDS: POLYETHYLENE GLYCOL 3350 17 GM PACKET. PO SCH (08:46)
[2019-03-13] MEDS: METOCLOPRAMIDE 5 MG TABLET. PO SCH ×4 (08:46→20:34)
[2019-03-13] MEDS: FLUTICASONE 50MCG/NASAL SPRAY 16GM BOTTLE. NS SCH (08:46)
[2019-03-13] MEDS: FERROUS SULFATE 325 MG TABLET. PO SCH (08:46)
[2019-03-13] MEDS ORDERED: POLYETHYLENE GLYCOL 3350 17 GM PACKET. PO SCH (09:00)
[2019-03-13] MEDS ORDERED: predniSONE 20 MG TABLET PO SCH (09:00)
--- NOTE | 2019-03-13 10:53 | PDOC ---
PROGRESS NOTES History of Present Illness History of Present Illness Assessment/Plan Assessment/Plan IMPRESSION 1. Acute on chronic HYPOXIC respiratory failure secondary to acute exacerbation of chronic obstructive pulmonary disease and acute bronchitis. 2. Abnormal chest x-ray. 3. Acute exacerbation of chronic obstructive pulmonary disease. 4. Acute bronchitis. 5. END STAGE LUNG DISEASE 6. Very severe chronic obstructive pulmonary disease. 7. Ex-smoker. 8. back pain Plan . 1. Titrate FiO2 to keep O2 saturation 92%. 2. Bronchodilator. 3. Inhaled corticosteroid. 4. steroid taper 5. CONSULT PULM 6. Lovenox for deep vein thrombosis prophylaxis. 7. Protonix for stress ulcer prophylaxis. 8. The patient is being evaluated for lung transplant at [place] 9. Continue not smoking. 10. Add BIPAP qhs 11. pain control 12. ua 13. miralax d/w case mgt Vitals Vitals Vital Signs Date Time Temp Pulse Resp B/P (MAP) Pulse Ox O2 Delivery O2 Flow Rate FiO2 03/13/19 09:46 100 Nasal Cannula 3.0 03/13/19 07:00 97.8 79 18 119/76 (90) 97.8 Physical Exam General: Alert, Oriented X3, Cooperative, mild distress Heart: Regular rate, Normal S1 Lungs: Other (diminished breath sounds) Abdomen: Normal bowel sounds, Soft, No tenderness Extremities: No cyanosis Labs LABS Laboratory Tests Test 03/12/19 20:26 03/12/19 23:00 03/13/19 08:08 Glucose (Fingerstick) 152 mg/dL (70-99) 88 mg/dL (70-99) Urine Collection Type Unknown Urine Color Yellow Urine Clarity Clear Urine pH 7.0 Urine Specific [place] 1.015 Urine Protein Negative mg/dL (NEG-TRACE) Urine Glucose (UA) Negative mg/dL (NEG) Urine Ketones (Stick) Negative mg/dL (NEG) Urine Blood Negative (NEG) Urine Nitrite Negative (NEG) Urine Bilirubin Negative (NEG) Urine Urobilinogen Dipstick 0.2 mg/dL (0.2 mg/dL) Urine Leukocyte Esterase Negative (NEG) Urine RBC 0 /HPF (0-2) Urine WBC 0 /HPF (0-4) Urine Squamous Epithelial Cells Few /LPF Urine Bacteria 0 /HPF (0-FEW) Assessment and Plan Assessmemt and Plan Problems Medical Problems: (1) Acute exacerbation of chronic obstructive pulmonary disease (COPD) Status: Acute (2) Bilateral flank pain Status: Acute Comment Review of Relevant I have reviewed the following items franki (where applicable) has been applied. Labs Laboratory Tests Test 03/11/19 17:24 03/11/19 21:00 03/12/19 08:15 03/12/19 20:26 White Blood Count 8.2 x10^3/uL (4.0-11.0) 6.3 x10^3/uL (4.0-11.0) Red Blood Count 4.24 x10^6/uL (4.30-5.70) 3.74 x10^6/uL (4.30-5.70) Hemoglobin 12.2 g/dL (13.0-17.5) 10.8 g/dL (13.0-17.5) Hematocrit 37.8 % (39.0-53.0) 33.0 % (39.0-53.0) Mean Corpuscular Volume 89 fL (79-100) 88 fL (79-100) Mean Corpuscular Hemoglobin 29 pg (25-35) 29 pg (25-35) Mean Corpuscular Hemoglobin Concent 32 g/dL (31-37) 33 g/dL (31-37) Red Cell Distribution Width 17.5 % (11.5-14.5) 17.3 % (11.5-14.5) Platelet Count 224 x10^3/uL (140-400) 186 x10^3/uL (140-400) Neutrophils (%) (Auto) 88 % (31-73) 92 % (31-73) Lymphocytes (%) (Auto) 5 % (24-48) 3 % (24-48) Monocytes (%) (Auto) 6 % (0-9) 5 % (0-9) Eosinophils (%) (Auto) 0 % (0-3) 0 % (0-3) Basophils (%) (Auto) 1 % (0-3) 0 % (0-3) Neutrophils # (Auto) 7.2 x10^3/uL (1.8-7.7) 5.8 x10^3/uL (1.8-7.7) Lymphocytes # (Auto) 0.4 x10^3/uL (1.0-4.8) 0.2 x10^3/uL (1.0-4.8) Monocytes # (Auto) 0.5 x10^3/uL (0.0-1.1) 0.3 x10^3/uL (0.0-1.1) Eosinophils # (Auto) 0.0 x10^3/uL (0.0-0.7) 0.0 x10^3/uL (0.0-0.7) Basophils # (Auto) 0.1 x10^3/uL (0.0-0.2) 0.0 x10^3/uL (0.0-0.2) Segmented Neutrophils % 91 % (35-66) Lymphocytes % 3 % (24-48) Monocytes % 6 % (0-10) Platelet Estimate Adequate (ADEQUATE) Anisocytosis Slight Prothrombin Time 12.5 SEC (11.7-14.0) Prothromb Time International Ratio 1.0 (0.8-1.1) Sodium Level 142 mmol/L (136-145) 140 mmol/L (136-145) Potassium Level 4.2 mmol/L (3.5-5.1) 4.1 mmol/L (3.5-5.1) Chloride Level 98 mmol/L (98-107) 99 mmol/L (98-107) Carbon Dioxide Level 34 mmol/L (21-32) 34 mmol/L (21-32) Anion Gap 10 (6-14) 7 (6-14) Blood Urea Nitrogen 13 mg/dL (8-26) 12 mg/dL (8-26) Creatinine 1.1 mg/dL (0.7-1.3) 0.8 mg/dL (0.7-1.3) Estimated GFR (Cockcroft-Gault) 82.9 119.7 BUN/Creatinine Ratio 12 (6-20) 15 (6-20) Glucose Level 105 mg/dL (70-99) 142 mg/dL (70-99) Lactic Acid Level 3.7 mmol/L (0.4-2.0) 1.5 mmol/L (0.4-2.0) Calcium Level 9.0 mg/dL (8.5-10.1) 8.5 mg/dL (8.5-10.1) Total Bilirubin 0.4 mg/dL (0.2-1.0) 0.4 mg/dL (0.2-1.0) Aspartate Amino Transf (AST/SGOT) 18 U/L (15-37) 15 U/L (15-37) Alanine Aminotransferase (ALT/SGPT) 20 U/L (16-63) 16 U/L (16-63) Alkaline Phosphatase 104 U/L (46-116) 85 U/L (46-116) Troponin I Quantitative < 0.017 ng/mL (0.000-0.055) DL-Fmz-Z-Type Natriuretic Peptide 39 pg/mL (0-124) Total Protein 6.2 g/dL (6.4-8.2) 5.5 g/dL (6.4-8.2) Albumin 3.5 g/dL (3.4-5.0) 2.7 g/dL (3.4-5.0) Albumin/Globulin Ratio 1.3 (1.0-1.7) 1.0 (1.0-1.7) Lipase 83 U/L (73-393) Glucose (Fingerstick) 152 mg/dL (70-99) Test 03/12/19 23:00 03/13/19 08:08 Urine Collection Type Unknown Urine Color Yellow Urine Clarity Clear Urine pH 7.0 Urine Specific [place] 1.015 Urine Protein Negative mg/dL (NEG-TRACE) Urine Glucose (UA) Negative mg/dL (NEG) Urine Ketones (Stick) Negative mg/dL (NEG) Urine Blood Negative (NEG) Urine Nitrite Negative (NEG) Urine Bilirubin Negative (NEG) Urine Urobilinogen Dipstick 0.2 mg/dL (0.2 mg/dL) Urine Leukocyte Esterase Negative (NEG) Urine RBC 0 /HPF (0-2) Urine WBC 0 /HPF (0-4) Urine Squamous Epithelial Cells Few /LPF Urine Bacteria 0 /HPF (0-FEW) Glucose (Fingerstick) 88 mg/dL (70-99) Laboratory Tests Test 03/12/19 20:26 03/12/19 23:00 03/13/19 08:08 Glucose (Fingerstick) 152 mg/dL (70-99) 88 mg/dL (70-99) Urine Collection Type Unknown Urine Color Yellow Urine Clarity Clear Urine pH 7.0 Urine Specific [place] 1.015 Urine Protein Negative mg/dL (NEG-TRACE) Urine Glucose (UA) Negative mg/dL (NEG) Urine Ketones (Stick) Negative mg/dL (NEG) Urine Blood Negative (NEG) Urine Nitrite Negative (NEG) Urine Bilirubin Negative (NEG) Urine Urobilinogen Dipstick 0.2 mg/dL (0.2 mg/dL) Urine Leukocyte Esterase Negative (NEG) Urine RBC 0 /HPF (0-2) Urine WBC 0 /HPF (0-4) Urine Squamous Epithelial Cells Few /LPF Urine Bacteria 0 /HPF (0-FEW) Medications Current Medications Sodium Chloride 1,000 ml @ 100 mls/hr Q10H IV Last administered on 03/11/19at 17:57; Start 03/11/19 at 17:18; Stop 03/12/19 at 03:17; Status DC Lorazepam (Ativan Inj) 1 mg 1X ONCE IVP Last administered on 03/11/19at 17:38; Start 03/11/19 at 17:45; Stop 03/11/19 at 17:46; Status DC Ondansetron HCl (Zofran) 4 mg PRN Q8HRS PRN IV NAUSEA/VOMITING; Start 03/11/19 at 19:30; Stop 03/12/19 at 18:08; Status DC Acetaminophen (Tylenol) 650 mg PRN Q4HRS PRN PO FEVER; Start 03/11/19 at 19:30; Stop 03/12/19 at 19:29; Status UNV Albuterol/ Ipratropium (Duoneb) 3 ml RTQID NEB Last administered on 03/12/19at 11:31; Start 03/11/19 at 20:00; Stop 03/12/19 at 14:31; Status DC Levofloxacin/ Dextrose 150 ml @ 100 mls/hr 1X ONCE IV Last administered on 03/11/19at 19:42; Start 03/11/19 at 19:30; Stop 03/11/19 at 20:59; Status DC Prednisone (Prednisone) 60 mg 1X ONCE PO Last administered on 03/11/19at 19:42; Start 03/11/19 at 19:30; Stop 03/11/19 at 19:33; Status DC Lorazepam (Ativan) 0.5 mg PRN Q6HRS PRN PO ANXIETY / AGITATION Last administered on 03/11/19at 22:53; Start 03/11/19 at 22:30 Diphenhydramine HCl (Benadryl Oral Elixir) 25 mg PRN Q4HRS PRN PO ITCHING Last administered on 03/11/19 22:53; Start 03/11/19 at 22:30 Polyethylene Glycol (miraLAX PACKET) 17 gm PRN DAILY PRN PO CONSTIPATION Last administered on 03/12/19 16:47; Start 03/11/19 at 22:30 Trazodone HCl (Desyrel) 50 mg QHS PO Last administered on 03/12/19 21:22; Start 03/11/19 at 22:45 Tramadol HCl (Ultram) 50 mg PRN Q6HRS PRN PO MODERATE TO SEVERE PAIN Last administered on 03/13/19 08:46; Start 03/12/19 at 00:15 Aspirin (Ecotrin) 81 mg DAILYWBKFT PO Last administered on 03/13/19 08:45; Start 03/13/19 at 08:00 Atorvastatin Calcium (Lipitor) 10 mg HS PO Last administered on 03/12/19 21:22; Start 03/12/19 at 21:00 Benzonatate (Tessalon Perle) 100 mg TID PO Last administered on 03/13/19 08:45; Start 03/12/19 at 15:00 Docusate Sodium (Colace) 100 mg DAILY PO Last administered on 03/13/19 08:45; Start 03/12/19 at 15:00 Doxycycline Hyclate (Vibra-Tab) 100 mg BID PO Last administered on 03/13/19 08:46; Start 03/12/19 at 15:00 Ferrous Sulfate (Feosol) 325 mg DAILY PO Last administered on 03/13/19 08:46; Start 03/12/19 at 15:00 Fluticasone Propionate (Flonase) 2 spray DAILY NS Last administered on 03/13/19 08:46; Start 03/12/19 at 15:00 Furosemide (Lasix) 40 mg DAILY PO Last administered on 03/13/19 08:45; Start 03/12/19 at 15:00 Guaifenesin (Robitussin) 200 mg PRN Q4HRS PRN PO COUGH; Start 03/12/19 at 14:30 Insulin Human Lispro (HumaLOG) TIDWMEALS SQ ; Start 03/12/19 at 17:00 Albuterol/ Ipratropium (Duoneb) 3 ml RTQID NEB ; Start 03/12/19 at 16:00; Stop 03/12/19 at 17:27; Status DC Lactobacillus Rhamnosus (Culturelle) 1 cap BID PO Last administered on 03/13/19at 08:45; Start 03/12/19 at 15:00 Lidocaine (Lidoderm) 1 patch DAILY TP Last administered on 03/13/19at 08:46; Start 03/12/19 at 15:00 Lorazepam (Ativan) 1 mg BID PO Last administered on 03/13/19at 08:45; Start 03/12/19 at 15:00 Al Hydroxide/Mg Hydroxide (Mylanta Plus Xs) 30 ml PRN DAILY PRN PO HEARTBURN / GAS; Start 03/12/19 at 14:30 Metformin HCl (Glucophage) 500 mg DAILYWBKFT PO Last administered on 03/13/19at 08:45; Start 03/12/19 at 17:00 Metoclopramide HCl (Reglan) 5 mg QIDACHS PO Last administered on 03/13/19at 08:46; Start 03/12/19 at 16:30 Montelukast Sodium (Singulair) 10 mg QHS PO Last administered on 03/12/19at 21:22; Start 03/12/19 at 21:00 Polyethylene Glycol (miraLAX PACKET) 17 gm BID PO ; Start 03/12/19 at 15:00; Stop 03/12/19 at 15:02; Status DC Potassium Chloride (Klor-Con) 20 meq DAILY PO Last administered on 03/13/19at 08:45; Start 03/12/19 at 15:00 Prednisone (Prednisone) 20 mg DAILY PO Last administered on 03/13/19at 08:45; Start 03/12/19 at 15:00 Prednisone (Prednisone) 40 mg DAILY PO ; Start 03/13/19 at 09:00; Status UNV Sodium Chloride (Saline Mist Nasal) 1 angel PRN Q1HR PRN NS NASAL CONGESTION; Start 03/12/19 at 14:30 Budesonide (Pulmicort) 0.5 mg RTBID NEB Last administered on 03/13/19at 07:15; Start 03/12/19 at 16:00 Vitamin D (Vitamin D3) 5,000 unit DAILY PO Last administered on 03/13/19at 08:44; Start 03/12/19 at 15:00 Non-Formulary Medication (Methylprednisolone (Medrol)) 1 pkg UD PO ; Start 03/12/19 at 14:30; Status UNV Pantoprazole Sodium (Protonix) 40 mg DAILYAC PO Last administered on 03/13/19at 08:45; Start 03/12/19 at 15:00 Miscellaneous (Lidoderm Patch Removal) 1 ea QHS ; Start 03/12/19 at 21:00 Polyethylene Glycol (miraLAX PACKET) 17 gm DAILY PO Last administered on 03/13/19at 08:46; Start 03/13/19 at 09:00 Levofloxacin/ Dextrose 100 ml @ 100 mls/hr Q24H IV Last administered on 03/12/19at 21:22; Start 03/12/19 at 20:00 Polyethylene Glycol (miraLAX PACKET) 17 gm DAILY PO ; Start 03/13/19 at 09:00; Status Cancel Sodium Chloride (Normal Saline Flush) 3 ml QSHIFT PRN IV AFTER MEDS AND BLOOD DRAWS; Start 03/12/19 at 15:30 Ondansetron HCl (Zofran) 4 mg PRN Q4HRS PRN IV NAUSEA/VOMITING; Start 03/12/19 at 15:30 Acetaminophen (Tylenol) 650 mg PRN Q4HRS PRN PO TEMP OVER 100.4F OR MILD PAIN; Start 03/12/19 at 15:30 Al Hydroxide/Mg Hydroxide (Mylanta Plus Xs) 30 ml PRN DAILY PRN PO HEARTBURN / GAS; Start 03/12/19 at 15:30; Status Cancel Clonidine HCl (Catapres) 0.1 mg PRN Q6HRS PRN PO SBP>160 OR DBP>90; Start 03/12/19 at 15:30 Docusate Sodium (Colace) 100 mg PRN BID PRN PO HARD STOOLS; Start 03/12/19 at 15:30 Albuterol/ Ipratropium (Duoneb) 3 ml Q4H NEB Last administered on 03/13/19at 07:15; Start 03/12/19 at 15:30 Guaifenesin (Robitussin) 200 mg PRN Q4HRS PRN PO COUGH; Start 03/12/19 at 15:30; Status Cancel Enoxaparin Sodium (Lovenox 40mg Syringe) 40 mg Q24H SQ ; Start 03/12/19 at 21:00 Albuterol/ Ipratropium (Duoneb) 3 ml PRN Q4HRS PRN NEB SHORTNESS OF BREATH; Start 03/12/19 at 17:30; Stop 03/12/19 at 18:07; Status DC Albuterol Sulfate (Ventolin Neb Soln) 3 mg PRN Q4HRS PRN NEB SHORTNESS OF BREATH; Start 03/12/19 at 18:15 Active Scripts Active [place] 5-325 Tablet (Acetaminophen/Hydrocodone Bitart) 1 Each Tablet 1 Tab PO PRN Q6HRS PRN 3 Days Doxycycline Hyclate 100 Mg Tablet 100 Mg PO BID 4 Days Prednisone 20 Mg Tablet 20 Mg PO DAILY 10 Days Proair Hfa Inhaler (Albuterol Sulfate) 8.5 Gm Hfa.aer.ad 2 Puff IH PRN Q4-6HRS PRN 21 Days Mag-Al Plus Xs Suspension (Mag Hydrox/Al Hydrox/Simeth) 30 Ml Oral.susp 30 Ml PO PRN DAILY PRN 10 Days [place] (Sodium Chloride) 44 Ml [place] 1 Angel NS PRN Q1HR PRN 10 Days Hydrocodone-Apap 10-325 (Hydrocodone Bit/Acetaminophen) 1 Tab Tablet 1 Tab PO PRN Q6HRS PRN Culturelle (Lactobacillus Rhamnosus Gg) 1 Each Cap.sprink 1 Cap PO BID 30 Days Colace (Docusate Sodium) 100 Mg Capsule 100 Mg PO DAILY 30 Days Fluticasone Propionate Nasal [place] (Fluticasone Propionate) 16 Gm [place].susp 2 [place] NS DAILY 30 Days Miralax (Polyethylene Glycol 3350) 119 Gm Powder 17 Gm PO BID Duoneb 0.5-3(2.5) Mg/3 Ml (Albuterol/Ipratropium) 3 Ml Ampul.neb 3 Ml NEB QID Tessalon Perle (Benzonatate) 100 Mg Capsule 1 Cap PO TID Montelukast Sodium Tablet (Montelukast Sodium) 10 Mg Tablet 10 Mg PO QHS Lidocaine PATCH (Lidocaine) 1 Each Adh..patch 1 Each TP DAILY 30 Days REMOVE AFTER 12 HOURS Humalog (Insulin Lispro) 100 Unit/1 Ml Insuln.pen 0 Units SQ TIDWMEALS 30 Days Aspirin Ec (Aspirin) 81 Mg Tablet.dr 81 Mg PO DAILYWBKFT 30 Days Guaifenesin 100 Mg/5 Ml Liquid 200 Mg PO PRN Q4HRS PRN 30 Days Tylenol (Acetaminophen) 325 Mg Tablet 650 Mg PO PRN Q4HRS PRN 10 Days Reglan (Metoclopramide Hcl) 10 Mg Tablet 0.5 Tab PO QID 30 Days Reported Lasix (Furosemide) 40 Mg Tablet 1 Tab PO DAILY 30 Days Feosol (Ferrous Sulfate) 325 Mg Tablet 1 Tab PO DAILY 30 Days Tramadol Hcl 50 Mg Tablet 50 Mg PO Q6HRS PRN Ativan (Lorazepam) 1 Mg Tablet 1 Mg PO BID Metformin Hcl 500 Mg Tablet 500 Mg PO DAILYWBKFT Vitamin D3 (Cholecalciferol (Vitamin D3)) 5,000 Unit Tablet 5,000 Unit PO DAILY Potassium Chloride (Potassium Chloride) 20 Meq Tablet.er 20 Meq PO DAILY Protonix (Pantoprazole Sodium) 20 Mg Tablet.dr 2 Tab PO DAILY Atorvastatin Calcium 10 Mg Tablet 10 Mg PO HS Symbicort 160-4.5 Mcg Inhaler (Budesonide/Formoterol Fumarate) 10.2 Gm Hfa.aer.ad 2 Puff IH BID Vitals/I & O Vital Sign - Last 24 Hours 03/12/19 03/12/19 03/12/19 03/12/19 11:00 11:25 11:32 15:00 Temp 97.9 97.7 97.9 97.7 Pulse 77 78 Resp 18 18 B/P (MAP) 112/70 (84) 127/70 (89) Pulse Ox 98 100 99 O2 Delivery Nasal Cannula Room Air Nasal Cannula Nasal Cannula O2 Flow Rate 3.0 3.0 3.0 03/12/19 03/12/19 03/12/19 03/12/19 16:01 19:00 20:00 20:14 Temp 97.9 97.9 Pulse 92 Resp 18 B/P (MAP) 102/63 (76) Pulse Ox 100 100 97 O2 Delivery Nasal Cannula Nasal Cannula Nasal Cannula Nasal Cannula O2 Flow Rate 3.0 3.0 3.0 3.0 03/12/19 03/12/19 03/12/19 03/13/19 20:14 23:00 23:53 03:00 Temp 97.9 97.7 97.9 97.7 Pulse 100 75 Resp 18 18 B/P (MAP) 106/66 (79) 115/73 (87) Pulse Ox 97 98 97 98 O2 Delivery Nasal Cannula Nasal Cannula Nasal Cannula Nasal Cannula O2 Flow Rate 3.0 3.0 3.0 3.0 03/13/19 03/13/19 03/13/19 03/13/19 03:48 07:00 07:16 08:46 Temp 97.8 97.8 Pulse 79 Resp 18 B/P (MAP) 119/76 (90) Pulse Ox 98 100 100 100 O2 Delivery Nasal Cannula Nasal Cannula Nasal Cannula Nasal Cannula O2 Flow Rate 3.0 3.0 3.0 3.0 03/13/19 09:46 Pulse Ox 100 O2 Delivery Nasal Cannula O2 Flow Rate 3.0 Intake and Output 03/12/19 03/12/19 03/13/19 15:00 23:00 07:00 Intake Total 120 ml 160 ml Output Total 1000 ml Balance 120 ml 160 ml -1000 ml TOMAS BAIG MD Mar 13, 2019 10:53
[2019-03-13 11:00] VITALS: BP_SYST 49; BP_SYST 99; BP_DIAS 67
--- NOTE | 2019-03-13 12:15 | NUR ---
SW following. Discussed with RN, pt is from home, has oxygen services through [facility]. RN advised no SW needs at this time. SW will continue to follow for any discharge planning needs.
[2019-03-13 15:00] VITALS: BP 111/73
--- NOTE | 2019-03-13 15:31 | RAD ---
3 views lumbar spine without comparison for severe back pain. FINDINGS: There is straightening of the normal lumbar lordosis. There are old compressions at T12 and L1. No acute osseous abnormality's are seen. Degenerative disc disease is seen at T12-L1, L1-2, and L5-S1, with vacuum phenomenon present at L5-S1. There is bulky facet arthrosis in the lower lumbar levels. Dense atherosclerosis of the aorta is noted and there is a mild rotary curvature of the lumbar spine, likely degenerative. IMPRESSION: 1. No acute osseous abnormality. 2. Chronic changes as described. Electronically signed by: Jose Cruz Stanford MD (03/13/2019 3:28 PM) [id number]
--- NOTE | 2019-03-13 15:38 | RAD ---
2 views of the thoracic spine without comparison for severe back pain. FINDINGS: There appear to be a few chronic compression fractures within the mid thoracic spine. There may be a new compression fracture of the lower thoracic spine, though this is somewhat difficult to precisely discern due to obliquity on the film. If there is clinical concern for new compression fracture, further evaluation with MRI of the thoracic spine is recommended. IMPRESSION: 1. Possible new compression fracture in the lower thoracic spine. If clinically warranted consider further evaluation with MRI. Electronically signed by: Jose Cruz Stanford MD (03/13/2019 3:35 PM) [id number]
--- NOTE | 2019-03-13 17:01 | PDOC ---
PULMONARY PROGRESS NOTES Vitals Vital Signs Date Time Temp Pulse Resp B/P (MAP) Pulse Ox O2 Delivery O2 Flow Rate FiO2 03/13/19 15:30 1 Nasal Cannula 3.0 03/13/19 15:00 98.1 98 18 111/73 (86) 98.1 General: Alert, No acute distress Lungs: Other (diminished breath sounds) Cardiovascular: S1, S2 Abdomen: Soft, Non-tender Extremities: No Edema Labs Laboratory Tests Test 03/11/19 17:24 03/11/19 21:00 03/12/19 08:15 03/12/19 20:26 White Blood Count 8.2 x10^3/uL (4.0-11.0) 6.3 x10^3/uL (4.0-11.0) Red Blood Count 4.24 x10^6/uL (4.30-5.70) 3.74 x10^6/uL (4.30-5.70) Hemoglobin 12.2 g/dL (13.0-17.5) 10.8 g/dL (13.0-17.5) Hematocrit 37.8 % (39.0-53.0) 33.0 % (39.0-53.0) Mean Corpuscular Volume 89 fL (79-100) 88 fL (79-100) Mean Corpuscular Hemoglobin 29 pg (25-35) 29 pg (25-35) Mean Corpuscular Hemoglobin Concent 32 g/dL (31-37) 33 g/dL (31-37) Red Cell Distribution Width 17.5 % (11.5-14.5) 17.3 % (11.5-14.5) Platelet Count 224 x10^3/uL (140-400) 186 x10^3/uL (140-400) Neutrophils (%) (Auto) 88 % (31-73) 92 % (31-73) Lymphocytes (%) (Auto) 5 % (24-48) 3 % (24-48) Monocytes (%) (Auto) 6 % (0-9) 5 % (0-9) Eosinophils (%) (Auto) 0 % (0-3) 0 % (0-3) Basophils (%) (Auto) 1 % (0-3) 0 % (0-3) Neutrophils # (Auto) 7.2 x10^3/uL (1.8-7.7) 5.8 x10^3/uL (1.8-7.7) Lymphocytes # (Auto) 0.4 x10^3/uL (1.0-4.8) 0.2 x10^3/uL (1.0-4.8) Monocytes # (Auto) 0.5 x10^3/uL (0.0-1.1) 0.3 x10^3/uL (0.0-1.1) Eosinophils # (Auto) 0.0 x10^3/uL (0.0-0.7) 0.0 x10^3/uL (0.0-0.7) Basophils # (Auto) 0.1 x10^3/uL (0.0-0.2) 0.0 x10^3/uL (0.0-0.2) Segmented Neutrophils % 91 % (35-66) Lymphocytes % 3 % (24-48) Monocytes % 6 % (0-10) Platelet Estimate Adequate (ADEQUATE) Anisocytosis Slight Prothrombin Time 12.5 SEC (11.7-14.0) Prothromb Time International Ratio 1.0 (0.8-1.1) Sodium Level 142 mmol/L (136-145) 140 mmol/L (136-145) Potassium Level 4.2 mmol/L (3.5-5.1) 4.1 mmol/L (3.5-5.1) Chloride Level 98 mmol/L (98-107) 99 mmol/L (98-107) Carbon Dioxide Level 34 mmol/L (21-32) 34 mmol/L (21-32) Anion Gap 10 (6-14) 7 (6-14) Blood Urea Nitrogen 13 mg/dL (8-26) 12 mg/dL (8-26) Creatinine 1.1 mg/dL (0.7-1.3) 0.8 mg/dL (0.7-1.3) Estimated GFR (Cockcroft-Gault) 82.9 119.7 BUN/Creatinine Ratio 12 (6-20) 15 (6-20) Glucose Level 105 mg/dL (70-99) 142 mg/dL (70-99) Lactic Acid Level 3.7 mmol/L (0.4-2.0) 1.5 mmol/L (0.4-2.0) Calcium Level 9.0 mg/dL (8.5-10.1) 8.5 mg/dL (8.5-10.1) Total Bilirubin 0.4 mg/dL (0.2-1.0) 0.4 mg/dL (0.2-1.0) Aspartate Amino Transf (AST/SGOT) 18 U/L (15-37) 15 U/L (15-37) Alanine Aminotransferase (ALT/SGPT) 20 U/L (16-63) 16 U/L (16-63) Alkaline Phosphatase 104 U/L (46-116) 85 U/L (46-116) Troponin I Quantitative < 0.017 ng/mL (0.000-0.055) FB-Wih-T-Type Natriuretic Peptide 39 pg/mL (0-124) Total Protein 6.2 g/dL (6.4-8.2) 5.5 g/dL (6.4-8.2) Albumin 3.5 g/dL (3.4-5.0) 2.7 g/dL (3.4-5.0) Albumin/Globulin Ratio 1.3 (1.0-1.7) 1.0 (1.0-1.7) Lipase 83 U/L (73-393) Glucose (Fingerstick) 152 mg/dL (70-99) Test 03/12/19 23:00 03/13/19 08:08 03/13/19 11:20 03/13/19 16:48 Urine Collection Type Unknown Urine Color Yellow Urine Clarity Clear Urine pH 7.0 Urine Specific [place] 1.015 Urine Protein Negative mg/dL (NEG-TRACE) Urine Glucose (UA) Negative mg/dL (NEG) Urine Ketones (Stick) Negative mg/dL (NEG) Urine Blood Negative (NEG) Urine Nitrite Negative (NEG) Urine Bilirubin Negative (NEG) Urine Urobilinogen Dipstick 0.2 mg/dL (0.2 mg/dL) Urine Leukocyte Esterase Negative (NEG) Urine RBC 0 /HPF (0-2) Urine WBC 0 /HPF (0-4) Urine Squamous Epithelial Cells Few /LPF Urine Bacteria 0 /HPF (0-FEW) Glucose (Fingerstick) 88 mg/dL (70-99) 119 mg/dL (70-99) 189 mg/dL (70-99) Laboratory Tests Test 03/12/19 20:26 03/12/19 23:00 03/13/19 08:08 03/13/19 11:20 Glucose (Fingerstick) 152 mg/dL (70-99) 88 mg/dL (70-99) 119 mg/dL (70-99) Urine Collection Type Unknown Urine Color Yellow Urine Clarity Clear Urine pH 7.0 Urine Specific [place] 1.015 Urine Protein Negative mg/dL (NEG-TRACE) Urine Glucose (UA) Negative mg/dL (NEG) Urine Ketones (Stick) Negative mg/dL (NEG) Urine Blood Negative (NEG) Urine Nitrite Negative (NEG) Urine Bilirubin Negative (NEG) Urine Urobilinogen Dipstick 0.2 mg/dL (0.2 mg/dL) Urine Leukocyte Esterase Negative (NEG) Urine RBC 0 /HPF (0-2) Urine WBC 0 /HPF (0-4) Urine Squamous Epithelial Cells Few /LPF Urine Bacteria 0 /HPF (0-FEW) Test 03/13/19 16:48 Glucose (Fingerstick) 189 mg/dL (70-99) Medications Active Scripts Medications Dose Route/Sig Max Daily Dose Days Date Category Dose Instructions [place] 5-325 Tablet (Acetaminophen/Hydrocodone Bitart) 1 Each Tablet 1 Tab PO PRN Q6HRS PRN 3 03/06/19 Rx Doxycycline Hyclate 100 Mg Tablet 100 Mg PO BID 4 03/04/19 Rx Prednisone 20 Mg Tablet 20 Mg PO DAILY 10 02/15/19 Rx Proair Hfa Inhaler (Albuterol Sulfate) 8.5 Gm Hfa.aer.ad 2 Puff IH PRN Q4-6HRS PRN 21 01/17/19 Rx Lasix (Furosemide) 40 Mg Tablet 1 Tab PO DAILY 30 01/09/19 Reported Feosol (Ferrous Sulfate) 325 Mg Tablet 1 Tab PO DAILY 30 01/09/19 Reported Tramadol Hcl 50 Mg Tablet 50 Mg PO Q6HRS PRN 01/09/19 Reported Mag-Al Plus Xs Suspension (Mag Hydrox/Al Hydrox/Simeth) 30 Ml Oral.susp 30 Ml PO PRN DAILY PRN 10 12/31/18 Rx [place] (Sodium Chloride) 44 Ml [place] 1 Angel NS PRN Q1HR PRN 10 12/31/18 Rx Hydrocodone-Apap 10-325 (Hydrocodone Bit/Acetaminophen) 1 Tab Tablet 1 Tab PO PRN Q6HRS PRN 12/22/18 Rx Ativan (Lorazepam) 1 Mg Tablet 1 Mg PO BID 12/20/18 Reported Culturelle (Lactobacillus Rhamnosus Gg) 1 Each Cap.sprink 1 Cap PO BID 30 11/11/18 Rx Colace (Docusate Sodium) 100 Mg Capsule 100 Mg PO DAILY 30 11/11/18 Rx Fluticasone Propionate Nasal [place] (Fluticasone Propionate) 16 Gm [place].susp 2 [place] NS DAILY 30 11/11/18 Rx Miralax (Polyethylene Glycol 3350) 119 Gm Powder 17 Gm PO BID 11/03/18 Rx Duoneb 0.5-3(2.5) Mg/3 Ml (Albuterol/Ipratropium) 3 Ml Ampul.neb 3 Ml NEB QID 10/28/18 Rx Tessalon Perle (Benzonatate) 100 Mg Capsule 1 Cap PO TID 10/28/18 Rx Montelukast Sodium Tablet (Montelukast Sodium) 10 Mg Tablet 10 Mg PO QHS 10/28/18 Rx Lidocaine PATCH (Lidocaine) 1 Each Adh..patch 1 Each TP DAILY 09/11/18 Rx REMOVE AFTER 12 HOURS Metformin Hcl 500 Mg Tablet 500 Mg PO DAILYWBKFT 09/09/18 Reported Humalog (Insulin Lispro) 100 Unit/1 Ml Insuln.pen 0 Units SQ TIDWMEALS 30 08/28/18 Rx Aspirin Ec (Aspirin) 81 Mg Tablet.dr 81 Mg PO DAILYWBKFT 30 08/28/18 Rx Guaifenesin 100 Mg/5 Ml Liquid 200 Mg PO PRN Q4HRS PRN 30 05/30/18 Rx Tylenol (Acetaminophen) 325 Mg Tablet 650 Mg PO PRN Q4HRS PRN 10 05/30/18 Rx Vitamin D3 (Cholecalciferol (Vitamin D3)) 5,000 Unit Tablet 5,000 Unit PO DAILY 03/15/18 Reported Reglan (Metoclopramide Hcl) 10 Mg Tablet 0.5 Tab PO QID 30 02/14/18 Rx Potassium Chloride (Potassium Chloride) 20 Meq Tablet.er 20 Meq PO DAILY 01/13/18 Reported Protonix (Pantoprazole Sodium) 20 Mg Tablet.dr 2 Tab PO DAILY 11/18/17 Reported Atorvastatin Calcium 10 Mg Tablet 10 Mg PO HS 08/21/17 Reported Symbicort 160-4.5 Mcg Inhaler (Budesonide/Formoterol Fumarate) 10.2 Gm Hfa.aer.ad 2 Puff IH BID 09/21/15 Reported Impression . FULL NOTE DICTATED THANKS SEE MY NOTE FOR POSSIBLE LUNG VOLUME REDUCTION SURGERY SCOTT COOK MD Mar 13, 2019 17:00
[2019-03-13 19:00] VITALS: BP 118/84
[2019-03-13] MEDS: MONTELUKAST SODIUM 10 MG TABLET. PO SCH (20:34)
[2019-03-13] MEDS: ATORVASTATIN CALCIUM 10 MG TABLET. PO SCH (20:34)
[2019-03-13] MEDS: LORazepam 0.5 MG TABLET PO PRN ×2 (20:34→20:39)
[2019-03-13] MEDS: traZODone 50 MG TABLET. PO SCH (20:34)
[2019-03-13] MEDS: PATCH REMOVAL. MC SCH (20:36)
[2019-03-13] MEDS: ENOXAPARIN 40 MG/0.4 ML SYRINGE. SQ SCH (20:37)
[2019-03-13 23:00] VITALS: BP 109/73
[2019-03-14 03:00] VITALS: BP 121/81
[2019-03-14] MEDS: IPRATRPIUM/ALBUTEROL 0.5/2.5MG 3 ML NEBU. NEB SCH ×4 (03:30→14:47)
--- NOTE | 2019-03-14 04:08 | CONS ---
DATE OF CONSULTATION: 03/13/2019 ATTENDING PHYSICIAN: Dr. Mccormick. REASON FOR CONSULTATION: The patient is seen in pulmonary consultation at the request of Dr. Mccormick for increasing shortness of air. HISTORY OF PRESENT ILLNESS: The patient is a 58-year-old male that has underlying severe COPD, end-stage large bullous emphysema. He was actually being evaluated for lung volume reduction surgery with endobronchial valve placement. He has an appointment coming up on 05/13/2019. The patient presented with increasing shortness of breath. He was also having some difficulty mainly related to lower back pain and some abdominal pain. He states that as a result of the abdominal pain and back pain, he was having difficulty with shortness of air. PAST MEDICAL HISTORY: Chronic respiratory failure, severe COPD, end-stage severe bullous emphysema, sleep apnea-hypopnea syndrome, osteoporosis, and history of pulmonary embolism. SOCIAL HISTORY: He quit tobacco in 2013. FAMILY HISTORY: Diabetes. REVIEW OF SYSTEMS: CONSTITUTIONAL: No fever or chills. EYES: No change in visual acuity. HENT: No nasal congestion or sore throat. PULMONARY: As indicated above. CARDIOVASCULAR: No chest pain. No pressure. GASTROINTESTINAL: No nausea, vomiting, diarrhea. GENITOURINARY: No dysuria or frequency. MUSCULOSKELETAL: Chronic back pain. SKIN: No new skin rashes. NEUROLOGIC: No headaches, diplopia, or blurred vision. CURRENT MEDICATION: List was reviewed. ALLERGIES: ACETAMINOPHEN. PHYSICAL EXAMINATION: VITAL SIGNS: Stable. O2 saturation was greater than 92%. HEENT: Eyes, the sclerae were nonicteric. NECK: Jugular venous distention was not elevated. No lymphadenopathy. CHEST: Full expansion. LUNGS: Poor air flow with no wheezes. CARDIOVASCULAR: Regular rate and rhythm with S1, S2, no S3. ABDOMEN: Soft, nontender, nondistended. EXTREMITIES: No clubbing, cyanosis, or edema. DIAGNOSTIC IMAGING: Chest x-ray was reviewed, again seen the apical bullous change taking up most of the left thoracic area and the left lung airspace opacities in the bases. Lumbar spine revealed no acute changes. Thoracic spine x-ray, compression fracture. CT pelvis without contrast revealed no evidence of intrarenal collecting system pathology. IMPRESSION: 1. Acute exacerbation of chronic obstructive pulmonary disease. 2. Chronic low back pain. 3. Osteoporosis. 4. Severe bullous emphysema. 5. Acute on chronic hypoxemic respiratory failure. PLAN: Agree with current medical management. The patient has an appointment for possible lung volume reduction surgery with Dr. Mcgarry at [facility]. I do appreciate the privilege in sharing in the patient's care. SCOTT COOK MD DR: MAVERICK/ferain JOB#: [id number] / [id number] JOHANNE
[2019-03-14] MEDS: BUDESONIDE 0.5 MG/2 ML NEBU. NEB SCH (07:03)
[2019-03-14 07:48] VITALS: BP 129/73
[2019-03-14] MEDS: ASPIRIN ENTERIC COATED 81 MG TABLET.DR. PO SCH (07:57)
[2019-03-14] MEDS: metFORMIN 500 MG TABLET PO SCH (07:57)
[2019-03-14] MEDS: FERROUS SULFATE 325 MG TABLET. PO SCH (07:57)
[2019-03-14] MEDS: METOCLOPRAMIDE 5 MG TABLET. PO SCH ×3 (07:57→16:31)
[2019-03-14] MEDS: DOCUSATE SODIUM 100 MG CAPSULE. PO SCH (07:57)
[2019-03-14] MEDS: LACTOBACILLUS RHAMNOSUS GG 1 CAPSULE. PO SCH (07:57)
[2019-03-14] MEDS: LORazepam 1 MG TABLET PO SCH (07:57)
[2019-03-14] MEDS: DOXYCYCLINE HYCLATE 100 MG TABLET PO SCH (07:57)
[2019-03-14] MEDS: FUROSEMIDE 40 MG TABLET. PO SCH (07:57)
[2019-03-14] MEDS: CHOLECALCIFEROL (VITAMIN D3) 5,000 UNIT CAPSULE PO SCH (07:57)
[2019-03-14] MEDS: traMADol 50 MG TABLET PO PRN (07:58)
[2019-03-14] MEDS: POTASSIUM CHLORIDE 20 MEQ TABLET.ER. PO SCH (07:58)
[2019-03-14] MEDS: PANTOPRAZOLE 40 MG TABLET.DR. PO SCH (07:58)
[2019-03-14] MEDS: predniSONE 20 MG TABLET PO SCH (07:58)
[2019-03-14] MEDS: INSULIN LISPRO 300 UNITS/3 ML VIAL. SQ SCH ×3 (07:58→16:31)
[2019-03-14] MEDS: POLYETHYLENE GLYCOL 3350 17 GM PACKET. PO SCH (07:58)
[2019-03-14] MEDS: BENZONATATE 100 MG CAPSULE. PO SCH ×2 (07:58→16:31)
[2019-03-14] MEDS: FLUTICASONE 50MCG/NASAL SPRAY 16GM BOTTLE. NS SCH (07:59)
[2019-03-14] MEDS: LIDOCAINE (700MG/PATCH) PATCH. TP SCH (07:59)
--- NOTE | 2019-03-14 08:27 | PDOC ---
PULMONARY PROGRESS NOTES Subjective PT LESS SOA Vitals Vital Signs Date Time Temp Pulse Resp B/P (MAP) Pulse Ox O2 Delivery O2 Flow Rate FiO2 03/14/19 08:05 Nasal Cannula 3.0 03/14/19 07:48 98.3 81 20 129/73 (91) 98 98.3 ROS: No Nausea, No Chest Pain, No Abdominal Pain, No Increase Cough General: Alert Lungs: Clear, Other (POOR AIRFLOW) Cardiovascular: S1, S2 Abdomen: Soft, Non-tender Neuro Exam: Alert Extremities: No Edema Skin: Warm Labs Laboratory Tests Test 03/12/19 20:26 03/12/19 23:00 03/13/19 08:08 03/13/19 11:20 Glucose (Fingerstick) 152 mg/dL (70-99) 88 mg/dL (70-99) 119 mg/dL (70-99) Urine Collection Type Unknown Urine Color Yellow Urine Clarity Clear Urine pH 7.0 Urine Specific [place] 1.015 Urine Protein Negative mg/dL (NEG-TRACE) Urine Glucose (UA) Negative mg/dL (NEG) Urine Ketones (Stick) Negative mg/dL (NEG) Urine Blood Negative (NEG) Urine Nitrite Negative (NEG) Urine Bilirubin Negative (NEG) Urine Urobilinogen Dipstick 0.2 mg/dL (0.2 mg/dL) Urine Leukocyte Esterase Negative (NEG) Urine RBC 0 /HPF (0-2) Urine WBC 0 /HPF (0-4) Urine Squamous Epithelial Cells Few /LPF Urine Bacteria 0 /HPF (0-FEW) Test 03/13/19 16:48 03/13/19 20:21 Glucose (Fingerstick) 189 mg/dL (70-99) 88 mg/dL (70-99) Laboratory Tests Test 03/13/19 11:20 03/13/19 16:48 03/13/19 20:21 Glucose (Fingerstick) 119 mg/dL (70-99) 189 mg/dL (70-99) 88 mg/dL (70-99) Medications Active Scripts Medications Dose Route/Sig Max Daily Dose Days Date Category Dose Instructions [place] 5-325 Tablet (Acetaminophen/Hydrocodone Bitart) 1 Each Tablet 1 Tab PO PRN Q6HRS PRN 3 03/06/19 Rx Doxycycline Hyclate 100 Mg Tablet 100 Mg PO BID 4 03/04/19 Rx Prednisone 20 Mg Tablet 20 Mg PO DAILY 10 1/4/20 Rx Proair Hfa Inhaler (Albuterol Sulfate) 8.5 Gm Hfa.aer.ad 2 Puff IH PRN Q4-6HRS PRN 21 01/17/19 Rx Lasix (Furosemide) 40 Mg Tablet 1 Tab PO DAILY 30 01/09/19 Reported Feosol (Ferrous Sulfate) 325 Mg Tablet 1 Tab PO DAILY 30 01/09/19 Reported Tramadol Hcl 50 Mg Tablet 50 Mg PO Q6HRS PRN 01/09/19 Reported Mag-Al Plus Xs Suspension (Mag Hydrox/Al Hydrox/Simeth) 30 Ml Oral.susp 30 Ml PO PRN DAILY PRN 10 12/31/18 Rx [place] (Sodium Chloride) 44 Ml [place] 1 Angel NS PRN Q1HR PRN 10 12/31/18 Rx Hydrocodone-Apap 10-325 (Hydrocodone Bit/Acetaminophen) 1 Tab Tablet 1 Tab PO PRN Q6HRS PRN 12/22/18 Rx Ativan (Lorazepam) 1 Mg Tablet 1 Mg PO BID 12/20/18 Reported Culturelle (Lactobacillus Rhamnosus Gg) 1 Each Cap.sprink 1 Cap PO BID 30 11/11/18 Rx Colace (Docusate Sodium) 100 Mg Capsule 100 Mg PO DAILY 30 11/11/18 Rx Fluticasone Propionate Nasal [place] (Fluticasone Propionate) 16 Gm [place].susp 2 [place] NS DAILY 30 11/11/18 Rx Miralax (Polyethylene Glycol 3350) 119 Gm Powder 17 Gm PO BID 11/03/18 Rx Duoneb 0.5-3(2.5) Mg/3 Ml (Albuterol/Ipratropium) 3 Ml Ampul.neb 3 Ml NEB QID 10/28/18 Rx Tessalon [place] (Benzonatate) 100 Mg Capsule 1 Cap PO TID 10/28/18 Rx Montelukast Sodium Tablet (Montelukast Sodium) 10 Mg Tablet 10 Mg PO QHS 10/28/18 Rx Lidocaine PATCH (Lidocaine) 1 Each Adh..patch 1 Each TP DAILY 30 09/11/18 Rx REMOVE AFTER 12 HOURS Metformin Hcl 500 Mg Tablet 500 Mg PO DAILYWBKFT 09/09/18 Reported Humalog (Insulin Lispro) 100 Unit/1 Ml Insuln.pen 0 Units SQ TIDWMEALS 08/28/18 Rx Aspirin Ec (Aspirin) 81 Mg Tablet. 81 Mg PO DAILYWBKFT 30 08/28/18 Rx Guaifenesin 100 Mg/5 Ml Liquid 200 Mg PO PRN Q4HRS PRN 30 05/30/18 Rx Tylenol (Acetaminophen) 325 Mg Tablet 650 Mg PO PRN Q4HRS PRN 10 05/30/18 Rx Vitamin D3 (Cholecalciferol (Vitamin D3)) 5,000 Unit Tablet 5,000 Unit PO DAILY 03/15/18 Reported Reglan (Metoclopramide Hcl) 10 Mg Tablet 0.5 Tab PO QID 30 02/14/18 Rx Potassium Chloride (Potassium Chloride) 20 Meq Tablet.er 20 Meq PO DAILY 01/13/18 Reported Protonix (Pantoprazole Sodium) 20 Mg Tablet. 2 Tab PO DAILY 11/18/17 Reported Atorvastatin Calcium 10 Mg Tablet 10 Mg PO HS 08/21/17 Reported Symbicort 160-4.5 Mcg Inhaler (Budesonide/Formoterol Fumarate) 10.2 Gm Hfa.aer.ad 2 Puff IH BID 09/21/15 Reported Impression . IMPRESSION: 1. Acute exacerbation of chronic obstructive pulmonary disease. 2. Chronic low back pain. 3. Osteoporosis. 4. Severe bullous emphysema. 5. Acute on chronic hypoxemic respiratory failure. Plan . SPOKE WITH DR HAIDER AT [place] PT HAS APPT ON April PT TO FOLLOW UP IN FEB WITH HIM FOR EVALUATION OF LUNG VOLUME REDUCTION SURGERY WITH ENDOBRONCHIAL VALVE SCOTT COOK MD Mar 14, 2019 08:27
--- NOTE | 2019-03-14 09:23 | PDOC ---
PROGRESS NOTES History of Present Illness History of Present Illness Assessment/Plan Assessment/Plan IMPRESSION 1. Acute on chronic HYPOXIC respiratory failure secondary to acute exacerbation of chronic obstructive pulmonary disease and acute bronchitis. 2. Abnormal chest x-ray. 3. Acute exacerbation of chronic obstructive pulmonary disease. 4. Acute bronchitis. 5. END STAGE LUNG DISEASE 6. Very severe chronic obstructive pulmonary disease. 7. Ex-smoker. 8. back pain 9. Possible new compression fracture in the lower thoracic spine. If clinically warranted consider further evaluation with MRI. Plan . 1. Titrate FiO2 to keep O2 saturation 92%. 2. Bronchodilator. 3. Inhaled corticosteroid. 4. steroid taper 5. CONSULT PULM 6. Lovenox for deep vein thrombosis prophylaxis. 7. Protonix for stress ulcer prophylaxis. 8. The patient is being evaluated for lung transplant at [facility] 9. Continue not smoking. 10. Add BIPAP qhs 11. pain control 12. ua 13. miralax 14. consult DR GOOD 03/14 PAIN , LOW BACK POORLY CONTROLLED, DR GOOD CONSULTED/ PT/OT d/w case mgt Vitals Vitals Vital Signs Date Time Temp Pulse Resp B/P (MAP) Pulse Ox O2 Delivery O2 Flow Rate FiO2 03/14/19 08:05 Nasal Cannula 3.0 03/14/19 07:48 98.3 81 20 129/73 (91) 98 98.3 Physical Exam General: Alert, Oriented X3, Cooperative, mild distress Heart: Regular rate, Normal S1 Lungs: Other (diminished breath sounds) Abdomen: Normal bowel sounds, Soft, No tenderness Extremities: No cyanosis, No tenderness/swelling Labs LABS 3 views lumbar spine without comparison for severe back pain. FINDINGS: There is straightening of the normal lumbar lordosis. There are old compressions at T12 and L1. No acute osseous abnormality's are seen. Degenerative disc disease is seen at T12-L1, L1-2, and L5-S1, with vacuum phenomenon present at L5-S1. There is bulky facet arthrosis in the lower lumbar levels. Dense atherosclerosis of the aorta is noted and there is a mild rotary curvature of the lumbar spine, likely degenerative. IMPRESSION: 1. No acute osseous abnormality. 2. Chronic changes as described. Electronically signed by: Jose Cruz Rubio MD (03/13/2019 3:28 PM) [id number] DICTATED and SIGNED BY: JOSE CRUZ RUBIO MD DATE: 03/13/19 1528 SEX: M EXAM STATUS: ADM IN ORD. PHYSICIAN: TOMAS BAIG MD REASON: severe back pain PROCEDURE: THORACIC SPINE 3V 2 views of the thoracic spine without comparison for severe back pain. FINDINGS: There appear to be a few chronic compression fractures within the mid thoracic spine. There may be a new compression fracture of the lower thoracic spine, though this is somewhat difficult to precisely discern due to obliquity on the film. If there is clinical concern for new compression fracture, further evaluation with MRI of the thoracic spine is recommended. IMPRESSION: 1. Possible new compression fracture in the lower thoracic spine. If clinically warranted consider further evaluation with MRI. Electronically signed by: Jose Cruz Rubio MD (03/13/2019 3:35 PM) [id number] DICTATED and SIGNED BY: JOSE CRUZ RUBIO MD Laboratory Tests Test 03/13/19 11:20 03/13/19 16:48 03/13/19 20:21 Glucose (Fingerstick) 119 mg/dL (70-99) 189 mg/dL (70-99) 88 mg/dL (70-99) Assessment and Plan Assessmemt and Plan Problems Medical Problems: (1) Acute exacerbation of chronic obstructive pulmonary disease (COPD) Status: Acute (2) Bilateral flank pain Status: Acute Comment Review of Relevant I have reviewed the following items franki (where applicable) has been applied. Labs Laboratory Tests Test 03/12/19 20:26 03/12/19 23:00 03/13/19 08:08 03/13/19 11:20 Glucose (Fingerstick) 152 mg/dL (70-99) 88 mg/dL (70-99) 119 mg/dL (70-99) Urine Collection Type Unknown Urine Color Yellow Urine Clarity Clear Urine pH 7.0 Urine Specific [place] 1.015 Urine Protein Negative mg/dL (NEG-TRACE) Urine Glucose (UA) Negative mg/dL (NEG) Urine Ketones (Stick) Negative mg/dL (NEG) Urine Blood Negative (NEG) Urine Nitrite Negative (NEG) Urine Bilirubin Negative (NEG) Urine Urobilinogen Dipstick 0.2 mg/dL (0.2 mg/dL) Urine Leukocyte Esterase Negative (NEG) Urine RBC 0 /HPF (0-2) Urine WBC 0 /HPF (0-4) Urine Squamous Epithelial Cells Few /LPF Urine Bacteria 0 /HPF (0-FEW) Test 03/13/19 16:48 03/13/19 20:21 Glucose (Fingerstick) 189 mg/dL (70-99) 88 mg/dL (70-99) Laboratory Tests Test 03/13/19 11:20 03/13/19 16:48 03/13/19 20:21 Glucose (Fingerstick) 119 mg/dL (70-99) 189 mg/dL (70-99) 88 mg/dL (70-99) Medications Current Medications Sodium Chloride 1,000 ml @ 100 mls/hr Q10H IV Last administered on 03/11/19at 17:57; Start 03/11/19 at 17:18; Stop 03/12/19 at 03:17; Status DC Lorazepam (Ativan Inj) 1 mg 1X ONCE IVP Last administered on 03/11/19at 17:38; Start 03/11/19 at 17:45; Stop 03/11/19 at 17:46; Status DC Ondansetron HCl (Zofran) 4 mg PRN Q8HRS PRN IV NAUSEA/VOMITING; Start 03/11/19 at 19:30; Stop 03/12/19 at 18:08; Status DC Acetaminophen (Tylenol) 650 mg PRN Q4HRS PRN PO FEVER; Start 03/11/19 at 19:30; Stop 03/12/19 at 19:29; Status UNV Albuterol/ Ipratropium (Duoneb) 3 ml RTQID NEB Last administered on 03/12/19at 11:31; Start 03/11/19 at 20:00; Stop 03/12/19 at 14:31; Status DC Levofloxacin/ Dextrose 150 ml @ 100 mls/hr 1X ONCE IV Last administered on 03/11/19at 19:42; Start 03/11/19 at 19:30; Stop 03/11/19 at 20:59; Status DC Prednisone (Prednisone) 60 mg 1X ONCE PO Last administered on 03/11/19at 19:42; Start 03/11/19 at 19:30; Stop 03/11/19 at 19:33; Status DC Lorazepam (Ativan) 0.5 mg PRN Q6HRS PRN PO ANXIETY / AGITATION Last admin istered on 03/11/19 22:53; Start 03/11/19 at 22:30 Diphenhydramine HCl (Benadryl Oral Elixir) 25 mg PRN Q4HRS PRN PO ITCHING Last administered on 03/11/19 22:53; Start 03/11/19 at 22:30 Polyethylene Glycol (miraLAX PACKET) 17 gm PRN DAILY PRN PO CONSTIPATION Last administered on 03/12/19 16:47; Start 03/11/19 at 22:30 Trazodone HCl (Desyrel) 50 mg QHS PO Last administered on 03/13/19 20:34; Start 03/11/19 at 22:45 Tramadol HCl (Ultram) 50 mg PRN Q6HRS PRN PO MODERATE TO SEVERE PAIN Last administered on 03/14/19 07:58; Start 03/12/19 at 00:15 Aspirin (Ecotrin) 81 mg DAILYWBKFT PO Last administered on 03/14/19 07:57; Start 03/13/19 at 08:00 Atorvastatin Calcium (Lipitor) 10 mg HS PO Last administered on 03/13/19 20:34; Start 03/12/19 at 21:00 Benzonatate (Tessalon Perle) 100 mg TID PO Last administered on 03/14/19 07:58; Start 03/12/19 at 15:00 Docusate Sodium (Colace) 100 mg DAILY PO Last administered on 03/14/19 07:57; Start 03/12/19 at 15:00 Doxycycline Hyclate (Vibra-Tab) 100 mg BID PO Last administered on 03/14/19 07:57; Start 03/12/19 at 15:00 Ferrous Sulfate (Feosol) 325 mg DAILY PO Last administered on 03/14/19 07:57; Start 03/12/19 at 15:00 Fluticasone Propionate (Flonase) 2 spray DAILY NS Last administered on 03/13/19 08:46; Start 03/12/19 at 15:00 Furosemide (Lasix) 40 mg DAILY PO Last administered on 03/14/19 07:57; Start 03/12/19 at 15:00 Guaifenesin (Robitussin) 200 mg PRN Q4HRS PRN PO COUGH; Start 03/12/19 at 14:30 Insulin Human Lispro (HumaLOG) TIDWMEALS SQ ; Start 03/12/19 at 17:00 Albuterol/ Ipratropium (Duoneb) 3 ml RTQID NEB ; Start 03/12/19 at 16:00; Stop 03/12/19 at 17:27; Status DC Lactobacillus Rhamnosus (Culturelle) 1 cap BID PO Last administered on 03/14/19at 07:57; Start 03/12/19 at 15:00 Lidocaine (Lidoderm) 1 patch DAILY TP ; Start 03/12/19 at 15:00 Lorazepam (Ativan) 1 mg BID PO Last administered on 03/14/19at 07:57; Start 03/12/19 at 15:00 Al Hydroxide/Mg Hydroxide (Mylanta Plus Xs) 30 ml PRN DAILY PRN PO HEARTBURN / GAS; Start 03/12/19 at 14:30 Metformin HCl (Glucophage) 500 mg DAILYWBKFT PO Last administered on 03/14/19at 07:57; Start 03/12/19 at 17:00 Metoclopramide HCl (Reglan) 5 mg QIDACHS PO Last administered on 03/14/19at 07:57; Start 03/12/19 at 16:30 Montelukast Sodium (Singulair) 10 mg QHS PO Last administered on 03/13/19at 20:34; Start 03/12/19 at 21:00 Polyethylene Glycol (miraLAX PACKET) 17 gm BID PO ; Start 03/12/19 at 15:00; Stop 03/12/19 at 15:02; Status DC Potassium Chloride (Klor-Con) 20 meq DAILY PO Last administered on 03/14/19at 07:58; Start 03/12/19 at 15:00 Prednisone (Prednisone) 20 mg DAILY PO Last administered on 03/14/19at 07:58; Start 03/12/19 at 15:00 Prednisone (Prednisone) 40 mg DAILY PO ; Start 03/13/19 at 09:00; Status UNV Sodium Chloride (Saline Mist Nasal) 1 angel PRN Q1HR PRN NS NASAL CONGESTION; Start 03/12/19 at 14:30 Budesonide (Pulmicort) 0.5 mg RTBID NEB Last administered on 03/14/19at 07:03; Start 03/12/19 at 16:00 Vitamin D (Vitamin D3) 5,000 unit DAILY PO Last administered on 03/14/19at 07:57; Start 03/12/19 at 15:00 Non-Formulary Medication (Methylprednisolone (Medrol)) 1 pkg UD PO ; Start 03/12/19 at 14:30; Status UNV Pantoprazole Sodium (Protonix) 40 mg DAILYAC PO Last administered on 03/14/19at 07:58; Start 03/12/19 at 15:00 Miscellaneous (Lidoderm Patch Removal) 1 ea QHS ; Start 03/12/19 at 21:00 Polyethylene Glycol (miraLAX PACKET) 17 gm DAILY PO Last administered on 03/14/19at 07:58; Start 03/13/19 at 09:00 Levofloxacin/ Dextrose 100 ml @ 100 mls/hr Q24H IV Last administered on 03/13/19at 19:24; Start 03/12/19 at 20:00 Polyethylene Glycol (miraLAX PACKET) 17 gm DAILY PO ; Start 03/13/19 at 09:00; Status Cancel Sodium Chloride (Normal Saline Flush) 3 ml QSHIFT PRN IV AFTER MEDS AND BLOOD DRAWS; Start 03/12/19 at 15:30 Ondansetron HCl (Zofran) 4 mg PRN Q4HRS PRN IV NAUSEA/VOMITING; Start 03/12/19 at 15:30 Acetaminophen (Tylenol) 650 mg PRN Q4HRS PRN PO TEMP OVER 100.4F OR MILD PAIN; Start 03/12/19 at 15:30 Al Hydroxide/Mg Hydroxide (Mylanta Plus Xs) 30 ml PRN DAILY PRN PO HEARTBURN / GAS; Start 03/12/19 at 15:30; Status Cancel Clonidine HCl (Catapres) 0.1 mg PRN Q6HRS PRN PO SBP>160 OR DBP>90; Start 03/12/19 at 15:30 Docusate Sodium (Colace) 100 mg PRN BID PRN PO HARD STOOLS; Start 03/12/19 at 15:30 Albuterol/ Ipratropium (Duoneb) 3 ml Q4H NEB Last administered on 03/14/19at 07:03; Start 03/12/19 at 15:30 Guaifenesin (Robitussin) 200 mg PRN Q4HRS PRN PO COUGH; Start 03/12/19 at 15:30; Status Cancel Enoxaparin Sodium (Lovenox 40mg Syringe) 40 mg Q24H SQ ; Start 03/12/19 at 21:00 Albuterol/ Ipratropium (Duoneb) 3 ml PRN Q4HRS PRN NEB SHORTNESS OF BREATH; Start 03/12/19 at 17:30; Stop 03/12/19 at 18:07; Status DC Albuterol Sulfate (Ventolin Neb Soln) 3 mg PRN Q4HRS PRN NEB SHORTNESS OF BREATH; Start 03/12/19 at 18:15 Active Scripts Active [place] 5-325 Tablet (Acetaminophen/Hydrocodone Bitart) 1 Each Tablet 1 Tab PO PRN Q6HRS PRN 3 Days Doxycycline Hyclate 100 Mg Tablet 100 Mg PO BID 4 Days Prednisone 20 Mg Tablet 20 Mg PO DAILY 10 Days Proair Hfa Inhaler (Albuterol Sulfate) 8.5 Gm Hfa.aer.ad 2 Puff IH PRN Q4-6HRS PRN 21 Days Mag-Al Plus Xs Suspension (Mag Hydrox/Al Hydrox/Simeth) 30 Ml Oral.susp 30 Ml PO PRN DAILY PRN 10 Days [place] (Sodium Chloride) 44 Ml [place] 1 Angel NS PRN Q1HR PRN 10 Days Hydrocodone-Apap 10-325 (Hydrocodone Bit/Acetaminophen) 1 Tab Tablet 1 Tab PO PRN Q6HRS PRN Culturelle (Lactobacillus Rhamnosus Gg) 1 Each Cap.sprink 1 Cap PO BID 30 Days Colace (Docusate Sodium) 100 Mg Capsule 100 Mg PO DAILY 30 Days Fluticasone Propionate Nasal [place] (Fluticasone Propionate) 16 Gm [place].susp 2 [place] NS DAILY 30 Days Miralax (Polyethylene Glycol 3350) 119 Gm Powder 17 Gm PO BID Duoneb 0.5-3(2.5) Mg/3 Ml (Albuterol/Ipratropium) 3 Ml Ampul.neb 3 Ml NEB QID Tessalon Perle (Benzonatate) 100 Mg Capsule 1 Cap PO TID Montelukast Sodium Tablet (Montelukast Sodium) 10 Mg Tablet 10 Mg PO QHS Lidocaine PATCH (Lidocaine) 1 Each Adh..patch 1 Each TP DAILY 30 Days REMOVE AFTER 12 HOURS Humalog (Insulin Lispro) 100 Unit/1 Ml Insuln.pen 0 Units SQ TIDWMEALS 30 Days Aspirin Ec (Aspirin) 81 Mg Tablet.dr 81 Mg PO DAILYWBKFT 30 Days Guaifenesin 100 Mg/5 Ml Liquid 200 Mg PO PRN Q4HRS PRN 30 Days Tylenol (Acetaminophen) 325 Mg Tablet 650 Mg PO PRN Q4HRS PRN 10 Days Reglan (Metoclopramide Hcl) 10 Mg Tablet 0.5 Tab PO QID 30 Days Reported Lasix (Furosemide) 40 Mg Tablet 1 Tab PO DAILY 30 Days Feosol (Ferrous Sulfate) 325 Mg Tablet 1 Tab PO DAILY 30 Days Tramadol Hcl 50 Mg Tablet 50 Mg PO Q6HRS PRN Ativan (Lorazepam) 1 Mg Tablet 1 Mg PO BID Metformin Hcl 500 Mg Tablet 500 Mg PO DAILYWBKFT Vitamin D3 (Cholecalciferol (Vitamin D3)) 5,000 Unit Tablet 5,000 Unit PO DAILY Potassium Chloride (Potassium Chloride) 20 Meq Tablet.er 20 Meq PO DAILY Protonix (Pantoprazole Sodium) 20 Mg Tablet.dr 2 Tab PO DAILY Atorvastatin Calcium 10 Mg Tablet 10 Mg PO HS Symbicort 160-4.5 Mcg Inhaler (Budesonide/Formoterol Fumarate) 10.2 Gm Hfa.aer.ad 2 Puff IH BID Vitals/I & O Vital Sign - Last 24 Hours 03/13/19 03/13/19 03/13/19 03/13/19 09:46 11:00 11:05 15:00 Temp 98.7 98.1 98.7 98.1 Pulse 94 98 Resp 16 18 B/P (MAP) 99/67 (78) 111/73 (86) Pulse Ox 100 97 100 99 O2 Delivery Nasal Cannula Room Air Nasal Cannula Room Air O2 Flow Rate 3.0 3.0 03/13/19 03/13/19 03/13/19 03/13/19 15:30 19:00 19:23 20:00 Temp 98.2 98.2 Pulse 99 Resp 18 B/P (MAP) 118/84 (95) Pulse Ox 1 96 O2 Delivery Nasal Cannula Nasal Cannula Room Air Nasal Cannula O2 Flow Rate 3.0 3.0 3.0 1/30/20 1/30/20 1/30/20 1/30/20 20:23 20:48 20:49 23:00 Temp 98.2 98.2 Pulse 89 Resp 18 B/P (MAP) 109/73 (85) Pulse Ox 99 99 99 O2 Delivery Nasal Cannula Nasal Cannula Nasal Cannula Nasal Cannula O2 Flow Rate 3.0 3.0 3.0 3.0 03/14/19 03/14/19 03/14/19 03/14/19 00:08 03:00 03:48 07:04 Temp 98.2 98.2 Pulse 94 Resp 20 B/P (MAP) 121/81 (94) Pulse Ox 99 99 98 99 O2 Delivery Nasal Cannula Nasal Cannula Nasal Cannula Nasal Cannula O2 Flow Rate 3.0 3.0 3.0 3.0 03/14/19 03/14/19 03/14/19 07:48 07:58 08:05 Temp 98.3 98.3 Pulse 81 Resp 20 B/P (MAP) 129/73 (91) Pulse Ox 98 O2 Delivery Nasal Cannula Nasal Cannula Nasal Cannula O2 Flow Rate 3.0 3.0 3.0 Intake and Output 03/13/19 03/13/19 03/14/19 15:00 23:00 07:00 Intake Total 740 ml Output Total 400 ml Balance -400 ml 740 ml TOMAS BAIG MD Mar 14, 2019 09:23
[2019-03-14 11:39] VITALS: BP 122/71
--- NOTE | 2019-03-14 12:27 | PDOC3 ---
Discharge Summary Date of Admission: Mar 12, 2019 Date of Discharge: Mar 14, 2019 Follow-Up: 3-5 days Admitting Diagnosis comment: discharge dx 1. Acute on chronic HYPOXIC respiratory failure secondary to acute exacerbation of chronic obstructive pulmonary disease and acute bronchitis. 2. Abnormal chest x-ray. 3. Acute exacerbation of chronic obstructive pulmonary disease. 4. Acute bronchitis. 5. END STAGE LUNG DISEASE 6. Very severe chronic obstructive pulmonary disease. 7. Ex-smoker. 8. back pain 9. Possible new compression fracture in the lower thoracic spine. If clinically warranted consider further evaluation with MRI. Plan . 1. Titrate FiO2 to keep O2 saturation 92%. 2. Bronchodilator. 3. Inhaled corticosteroid. 4. steroid taper 5. following PULM 6. Lovenox for deep vein thrombosis prophylaxis. 7. Protonix for stress ulcer prophylaxis. 8. The patient is being evaluated for lung transplant at [place] 9. Continue not smoking. 10. Add BIPAP qhs 11. pain control 12. ua 13. miralax 14. consult DR GOOD 03/14 PAIN , LOW BACK POORLY CONTROLLED, DR GOOD CONSULTED/ PT/OT d/c today for outpt rx d/w case mgt Vitals Vitals Vital Signs Date Time Temp Pulse Resp B/P (MAP) Pulse Ox O2 Delivery O2 Flow Rate FiO2 03/14/19 08:05 Nasal Cannula 3.0 03/14/19 07:48 98.3 81 20 129/73 (91) 98 98.3 Physical Exam General: Alert, Oriented X3, Cooperative, no distress eating lunch Heart: Regular rate, Normal S1 Lungs: Other (diminished breath sounds) Abdomen: Normal bowel sounds, Soft, No tenderness Extremities: No cyanosis, No tenderness/swelling Labs LABS 3 views lumbar spine without comparison for severe back pain. FINDINGS: There is straightening of the normal lumbar lordosis. There are old compressions at T12 and L1. No acute osseous abnormality's are seen. Degenerative disc disease is seen at T12-L1, L1-2, and L5-S1, with vacuum phenomenon present at L5-S1. There is bulky facet arthrosis in the lower lumbar levels. Dense atherosclerosis of the aorta is noted and there is a mild rotary curvature of the lumbar spine, likely degenerative. IMPRESSION: 1. No acute osseous abnormality. 2. Chronic changes as described. Electronically signed by: Jose Cruz Rubio MD (03/13/2019 3:28 PM) [id number] DICTATED and SIGNED BY: JOSE CRUZ RUBIO MD DATE: 03/13/19 1528 SEX: M EXAM STATUS: ADM IN ORD. PHYSICIAN: TOMAS BAIG MD REASON: severe back pain PROCEDURE: THORACIC SPINE 3V 2 views of the thoracic spine without comparison for severe back pain. FINDINGS: There appear to be a few chronic compression fractures within the mid thoracic spine. There may be a new compression fracture of the lower thoracic spine, though this is somewhat difficult to precisely discern due to obliquity on the film. If there is clinical concern for new compression fracture, further evaluation with MRI of the thoracic spine is recommended. IMPRESSION: 1. Possible new compression fracture in the lower thoracic spine. If clinically warranted consider further evaluation with MRI. Electronically signed by: Jose Cruz Rubio MD (03/13/2019 3:35 PM) [id number] FINAL DIAGNOSIS Problems Medical Problems: (1) Acute exacerbation of chronic obstructive pulmonary disease (COPD) Status: Acute (2) Bilateral flank pain Status: Acute Brief Hospital Course Mr. Nash is a 58 old [sex] who presented with [acute copd exac, resp failure ] CONDITION AT DISCHARGE: Improved Discharge Medications Current Medications Sodium Chloride 1,000 ml @ 100 mls/hr Q10H IV Last administered on 03/11/19at 17:57; Start 03/11/19 at 17:18; Stop 03/12/19 at 03:17; Status DC Lorazepam (Ativan Inj) 1 mg 1X ONCE IVP Last administered on 03/11/19at 17:38; Start 03/11/19 at 17:45; Stop 03/11/19 at 17:46; Status DC Ondansetron HCl (Zofran) 4 mg PRN Q8HRS PRN IV NAUSEA/VOMITING; Start 03/11/19 at 19:30; Stop 03/12/19 at 18:08; Status DC Acetaminophen (Tylenol) 650 mg PRN Q4HRS PRN PO FEVER; Start 03/11/19 at 19:30; Stop 03/12/19 at 19:29; Status UNV Albuterol/ Ipratropium (Duoneb) 3 ml RTQID NEB Last administered on 03/12/19at 11:31; Start 03/11/19 at 20:00; Stop 03/12/19 at 14:31; Status DC Levofloxacin/ Dextrose 150 ml @ 100 mls/hr 1X ONCE IV Last administered on 03/11/19at 19:42; Start 03/11/19 at 19:30; Stop 03/11/19 at 20:59; Status DC Prednisone (Prednisone) 60 mg 1X ONCE PO Last administered on 03/11/19at 19:42; Start 03/11/19 at 19:30; Stop 03/11/19 at 19:33; Status DC Lorazepam (Ativan) 0.5 mg PRN Q6HRS PRN PO ANXIETY / AGITATION Last administered on 03/11/19at 22:53; Start 03/11/19 at 22:30 Diphenhydramine HCl (Benadryl Oral Elixir) 25 mg PRN Q4HRS PRN PO ITCHING Last administered on 03/11/19at 22:53; Start 03/11/19 at 22:30 Polyethylene Glycol (miraLAX PACKET) 17 gm PRN DAILY PRN PO CONSTIPATION Last administered on 03/12/19at 16:47; Start 03/11/19 at 22:30 Trazodone HCl (Desyrel) 50 mg QHS PO Last administered on 03/13/19 20:34; Start 03/11/19 at 22:45 Tramadol HCl (Ultram) 50 mg PRN Q6HRS PRN PO MODERATE TO SEVERE PAIN Last administered on 03/14/19at 07:58; Start 03/12/19 at 00:15 Aspirin (Ecotrin) 81 mg DAILYWBKFT PO Last administered on 03/14/19 07:57; Start 03/13/19 at 08:00 Atorvastatin Calcium (Lipitor) 10 mg HS PO Last administered on 03/13/19 20:34; Start 03/12/19 at 21:00 Benzonatate (Tessalon Perle) 100 mg TID PO Last administered on 03/14/19 07:58; Start 03/12/19 at 15:00 Docusate Sodium (Colace) 100 mg DAILY PO Last administered on 03/14/19at 07:57; Start 03/12/19 at 15:00 Doxycycline Hyclate (Vibra-Tab) 100 mg BID PO Last administered on 03/14/19at 07:57; Start 03/12/19 at 15:00 Ferrous Sulfate (Feosol) 325 mg DAILY PO Last administered on 03/14/19at 07:57; Start 03/12/19 at 15:00 Fluticasone Propionate (Flonase) 2 spray DAILY NS Last administered on 03/13/19at 08:46; Start 03/12/19 at 15:00 Furosemide (Lasix) 40 mg DAILY PO Last administered on 03/14/19at 07:57; Start 03/12/19 at 15:00 Guaifenesin (Robitussin) 200 mg PRN Q4HRS PRN PO COUGH; Start 03/12/19 at 14:30 Insulin Human Lispro (HumaLOG) TIDWMEALS SQ ; Start 03/12/19 at 17:00 Albuterol/ Ipratropium (Duoneb) 3 ml RTQID NEB ; Start 03/12/19 at 16:00; Stop 03/12/19 at 17:27; Status DC Lactobacillus Rhamnosus (Culturelle) 1 cap BID PO Last administered on 03/14/19at 07:57; Start 03/12/19 at 15:00 Lidocaine (Lidoderm) 1 patch DAILY TP ; Start 03/12/19 at 15:00 Lorazepam (Ativan) 1 mg BID PO Last administered on 03/14/19at 07:57; Start 03/12/19 at 15:00 Al Hydroxide/Mg Hydroxide (Mylanta Plus Xs) 30 ml PRN DAILY PRN PO HEARTBURN / GAS; Start 03/12/19 at 14:30 Metformin HCl (Glucophage) 500 mg DAILYWBKFT PO Last administered on 03/14/19at 07:57; Start 03/12/19 at 17:00 Metoclopramide HCl (Reglan) 5 mg QIDACHS PO Last administered on 03/14/19at 12: 09; Start 03/12/19 at 16:30 Montelukast Sodium (Singulair) 10 mg QHS PO Last administered on 03/13/19at 20:34; Start 03/12/19 at 21:00 Polyethylene Glycol (miraLAX PACKET) 17 gm BID PO ; Start 1/29/20 at 15:00; Stop 03/12/19 at 15:02; Status DC Potassium Chloride (Klor-Con) 20 meq DAILY PO Last administered on 03/14/19at 07:58; Start 03/12/19 at 15:00 Prednisone (Prednisone) 20 mg DAILY PO Last administered on 03/14/19at 07:58; Start 03/12/19 at 15:00 Prednisone (Prednisone) 40 mg DAILY PO ; Start 03/13/19 at 09:00; Status UNV Sodium Chloride (Saline Mist Nasal) 1 angel PRN Q1HR PRN NS NASAL CONGESTION; Start 03/12/19 at 14:30 Budesonide (Pulmicort) 0.5 mg RTBID NEB Last administered on 03/14/19at 07:03; Start 03/12/19 at 16:00 Vitamin D (Vitamin D3) 5,000 unit DAILY PO Last administered on 03/14/19at 07:57; Start 03/12/19 at 15:00 Non-Formulary Medication (Methylprednisolone (Medrol)) 1 pkg UD PO ; Start 03/12/19 at 14:30; Status UNV Pantoprazole Sodium (Protonix) 40 mg DAILYAC PO Last administered on 03/14/19at 07:58; Start 03/12/19 at 15:00 Miscellaneous (Lidoderm Patch Removal) 1 ea [facility] ; Start 03/12/19 at 21:00 Polyethylene Glycol (miraLAX PACKET) 17 gm DAILY PO Last administered on 03/14/19at 07:58; Start 03/13/19 at 09:00 Levofloxacin/ Dextrose 100 ml @ 100 mls/hr Q24H IV Last administered on 03/13/19at 19:24; Start 03/12/19 at 20:00 Polyethylene Glycol (miraLAX PACKET) 17 gm DAILY PO ; Start 03/13/19 at 09:00; Status Cancel Sodium Chloride (Normal Saline Flush) 3 ml QSHIFT PRN IV AFTER MEDS AND BLOOD DRAWS; Start 03/12/19 at 15:30 Ondansetron HCl (Zofran) 4 mg PRN Q4HRS PRN IV NAUSEA/VOMITING; Start 03/12/19 at 15:30 Acetaminophen (Tylenol) 650 mg PRN Q4HRS PRN PO TEMP OVER 100.4F OR MILD PAIN; Start 03/12/19 at 15:30 Al Hydroxide/Mg Hydroxide (Mylanta Plus Xs) 30 ml PRN DAILY PRN PO HEARTBURN / GAS; Start 03/12/19 at 15:30; Status Cancel Clonidine HCl (Catapres) 0.1 mg PRN Q6HRS PRN PO SBP>160 OR DBP>90; Start 03/12/19 at 15:30 Docusate Sodium (Colace) 100 mg PRN BID PRN PO HARD STOOLS; Start 03/12/19 at 15:30 Albuterol/ Ipratropium (Duoneb) 3 ml Q4H NEB Last administered on 03/14/19at 07:03; Start 03/12/19 at 15:30 Guaifenesin (Robitussin) 200 mg PRN Q4HRS PRN PO COUGH; Start 03/12/19 at 15:30; Status Cancel Enoxaparin Sodium (Lovenox 40mg Syringe) 40 mg Q24H SQ ; Start 03/12/19 at 21:00 Albuterol/ Ipratropium (Duoneb) 3 ml PRN Q4HRS PRN NEB SHORTNESS OF BREATH; Start 03/12/19 at 17:30; Stop 03/12/19 at 18:07; Status DC Albuterol Sulfate (Ventolin Neb Soln) 3 mg PRN Q4HRS PRN NEB SHORTNESS OF BREATH; Start 03/12/19 at 18:15 Active Scripts Active [place] 5-325 Tablet (Acetaminophen/Hydrocodone Bitart) 1 Each Tablet 1 Tab PO PRN Q6HRS PRN 3 Days Doxycycline Hyclate 100 Mg Tablet 100 Mg PO BID 4 Days Prednisone 20 Mg Tablet 20 Mg PO DAILY 10 Days Proair Hfa Inhaler (Albuterol Sulfate) 8.5 Gm Hfa.aer.ad 2 Puff IH PRN Q4-6HRS PRN 21 Days Mag-Al Plus Xs Suspension (Mag Hydrox/Al Hydrox/Simeth) 30 Ml Oral.susp 30 Ml PO PRN DAILY PRN 10 Days [place] (Sodium Chloride) 44 Ml [place] 1 Angel NS PRN Q1HR PRN 10 Days Hydrocodone-Apap 10-325 (Hydrocodone Bit/Acetaminophen) 1 Tab Tablet 1 Tab PO PRN Q6HRS PRN Culturelle (Lactobacillus Rhamnosus Gg) 1 Each Cap.sprink 1 Cap PO BID 30 Days Colace (Docusate Sodium) 100 Mg Capsule 100 Mg PO DAILY 30 Days Fluticasone Propionate Nasal [place] (Fluticasone Propionate) 16 Gm [place].susp 2 [place] NS DAILY 30 Days Miralax (Polyethylene Glycol 3350) 119 Gm Powder 17 Gm PO BID Duoneb 0.5-3(2.5) Mg/3 Ml (Albuterol/Ipratropium) 3 Ml Ampul.neb 3 Ml NEB QID Tessalon Perle (Benzonatate) 100 Mg Capsule 1 Cap PO TID Montelukast Sodium Tablet (Montelukast Sodium) 10 Mg Tablet 10 Mg PO QHS Lidocaine PATCH (Lidocaine) 1 Each Adh..patch 1 Each TP DAILY 30 Days REMOVE AFTER 12 HOURS Humalog (Insulin Lispro) 100 Unit/1 Ml Insuln.pen 0 Units SQ TIDWMEALS 30 Days Aspirin Ec (Aspirin) 81 Mg Tablet.dr 81 Mg PO DAILYWBKFT 30 Days Guaifenesin 100 Mg/5 Ml Liquid 200 Mg PO PRN Q4HRS PRN 30 Days Tylenol (Acetaminophen) 325 Mg Tablet 650 Mg PO PRN Q4HRS PRN 10 Days Reglan (Metoclopramide Hcl) 10 Mg Tablet 0.5 Tab PO QID 30 Days Reported Lasix (Furosemide) 40 Mg Tablet 1 Tab PO DAILY 30 Days Feosol (Ferrous Sulfate) 325 Mg Tablet 1 Tab PO DAILY 30 Days Tramadol Hcl 50 Mg Tablet 50 Mg PO Q6HRS PRN Ativan (Lorazepam) 1 Mg Tablet 1 Mg PO BID Metformin Hcl 500 Mg Tablet 500 Mg PO DAILYWBKFT Vitamin D3 (Cholecalciferol (Vitamin D3)) 5,000 Unit Tablet 5,000 Unit PO DAILY Potassium Chloride (Potassium Chloride) 20 Meq Tablet.er 20 Meq PO DAILY Protonix (Pantoprazole Sodium) 20 Mg Tablet.dr 2 Tab PO DAILY Atorvastatin Calcium 10 Mg Tablet 10 Mg PO HS Symbicort 160-4.5 Mcg Inhaler (Budesonide/Formoterol Fumarate) 10.2 Gm Hfa.aer.ad 2 Puff IH BID Vital Signs Vital Signs Date Time Temp Pulse Resp B/P (MAP) Pulse Ox O2 Delivery O2 Flow Rate FiO2 03/14/19 11:39 97.8 93 20 122/71 (88) 97 Nasal Cannula 3.0 97.8 Labs Laboratory Tests Test 03/12/19 20:26 03/12/19 23:00 03/13/19 08:08 03/13/19 11:20 Glucose (Fingerstick) 152 mg/dL (70-99) 88 mg/dL (70-99) 119 mg/dL (70-99) Urine Collection Type Unknown Urine Color Yellow Urine Clarity Clear Urine pH 7.0 Urine Specific [place] 1.015 Urine Protein Negative mg/dL (NEG-TRACE) Urine Glucose (UA) Negative mg/dL (NEG) Urine Ketones (Stick) Negative mg/dL (NEG) Urine Blood Negative (NEG) Urine Nitrite Negative (NEG) Urine Bilirubin Negative (NEG) Urine Urobilinogen Dipstick 0.2 mg/dL (0.2 mg/dL) Urine Leukocyte Esterase Negative (NEG) Urine RBC 0 /HPF (0-2) Urine WBC 0 /HPF (0-4) Urine Squamous Epithelial Cells Few /LPF Urine Bacteria 0 /HPF (0-FEW) Test 03/13/19 16:48 03/13/19 20:21 03/14/19 10:40 03/14/19 11:55 Glucose (Fingerstick) 189 mg/dL (70-99) 88 mg/dL (70-99) 212 mg/dL (70-99) 137 mg/dL (70-99) Laboratory Tests Test 03/13/19 16:48 03/13/19 20:21 03/14/19 10:40 03/14/19 11:55 Glucose (Fingerstick) 189 mg/dL (70-99) 88 mg/dL (70-99) 212 mg/dL (70-99) 137 mg/dL (70-99) Allergies Allergies Coded Allergies Type Severity Reaction Last Updated Verified acetaminophen Allergy Intermediate ITCHES 03/12/19 Yes Disposition/Orders: D/C to Home Patient Instructions d/c planning 29 min TOMAS BAIG MD Mar 14, 2019 12:26
--- NOTE | 2019-03-14 12:29 | NUR ---
SW following. Discussed with RN, pt is from home, has oxygen services through [facility]. RN advised no SW needs at this time. SW will continue to follow for any discharge planning needs
[2019-03-14] MEDS ORDERED: TRAZ-118 PO (12:32)
--- NOTE | 2019-03-14 12:34 | DISCH ---
DISCHARGE INSTRUCTIONS Condition on Discharge Condition on Discharge: Stable Activity After Discharge Activity Instructions for Disc: Activity as tolerated Lifting Instructions after Dis: No heavy lifting Exercise Instruction after Dis: Progress as tolerated Driving Instructions after Dis: Do not drive, Do not drive today Weight Bearing Status after Di: As tolerated Diet after Discharge Diet after Discharge: Cardiac Diet Texture: Regular Liquid Texture: Thin Liquid Swallowing Supervision: None needed Wound Incision Care Wound/Incision Care: No wound care needed Checks after Discharge Checks after discharge: Check blood press - daily, Check your Temp as needed, Weigh Yourself Daily Contacting the DR. after DC Call your doctor for: If your condition worsens Treatment/Equipment after DC Adaptive Equipment Issued: None, Front wheeled walker Discharge Respiratory Equipmen: Oxygen, Nebulizer TOMAS BAIG MD Mar 14, 2019 12:33
--- NOTE | 2019-03-14 18:54 | NUR ---
Pt discharged home with self care. Discharge instructions and prescriptions discussed. Pt verbalized understanding. IV removed. Pt assisted to wheelchair and was taken to main entrance and secured in vehicle with friend.
--- NOTE | 2019-03-15 00:52 | CONS ---
DATE OF CONSULTATION: 03/14/2019 ATTENDING PHYSICIAN: Dr. Mccormick. REASON FOR CONSULTATION: The patient was seen at the request of Dr. Mccormick for rehab evaluation. HISTORY OF PRESENT ILLNESS: This is a 58-year-old male known to me since his previous hospitalizations. The patient with severe chronic obstructive pulmonary disease, admitted on 03/12/2019, complaining of increased shortness of breath and productive yellow sputum and also some back pain and anxiety. The patient is being followed by Emergency Room already twice this month about this problem and he also goes to [facility] Emergency Room. The patient with known congestive heart failure, hypertension, hyperlipidemia, asthmatic bronchitis, chronic obstructive pulmonary disease, pneumonia, gastroesophageal reflux disease, anxiety, chronic renal insufficiency, diabetes mellitus, multiple thoracic vertebral body compression fractures for which we have tried multiple braces. He does not like it as they interfere with his breathing. He was also evaluated for kyphoplasty and felt he is not a candidate for it. ALLERGIES: THE PATIENT IS KNOWN ALLERGIC TO ACETAMINOPHEN. PAST MEDICAL HISTORY: The patient admits to back pain mainly while he is coughing. PAST SURGICAL HISTORY: The patient is status post hernia repair. FAMILY HISTORY: Coronary artery disease and hypertension. He had radiological studies including CT scan, which revealed mild degenerative disk disease and degenerative joint disease of lumbar vertebrae and multiple old compression fractures involving the thoracic vertebral bodies. PHYSICAL EXAMINATION: Today revealed a middle-aged male. He is alert, oriented to time, place, person and circumstance and follows commands appropriately. He is cooperative during the examination. He had minimal tenderness to palpation over sacroiliac joint area. Straight leg raising test is negative bilaterally. No significant tenderness to palpation over thoracic or lumbar spine, interspinous ligamentous area or paraspinal muscles. He is independent with bed mobility and transfers. He is using proper body mechanics during mobility. He is using oxygen by nasal cannula. The patient had decreased knee and ankle jerks. He had equal perception of touch and pinprick sensation bilaterally. Overall, he had 4+/5 grade muscle strength. ASSESSMENT: A middle-aged male with chronic obstructive pulmonary disease with recent productive cough. Also osteoporotic thoracic vertebral body compression fractures, probably old with associated degenerative disk disease and degenerative joint disease of lumbar vertebrae with chronic back pain, no clinical evidence of ongoing thoracic or lumbar radiculopathy. The patient with diabetes mellitus with peripheral neuropathy, also with known congestive heart failure, hypertension, hyperlipidemia, gastroesophageal reflux disease, chronic renal insufficiency. RECOMMENDATIONS: I do not see need for any back support brace or kyphoplasty at this time. He knows how to take care of his back. I have again reviewed with him proper body mechanics and use a cane or walker while up walking. Dr. Mccormick, I appreciate asking me to participate in the care of this interesting patient. I will be glad to follow him with you as needed for the rehabilitation. SHELLY GOOD MD DR: DARLENE/efrain JOB#: [id number] / [id number]
== END 2019-03-14 18:59 | disposition home or self-care (01) | DRG 202 ==
LOC: ER 17:00 → 4 NORTH 19:13 → OBSVTOIN 03-12 10:42
PROVIDERS: ADMIT Internal Medicine; ATTEND Internal Medicine
DX: J20.9 Acute bronchitis, unspecified (principal); J96.21 Acute and chronic respiratory failure with hypoxia; I13.0 Hypertensive heart and chronic kidney disease with heart failure and stage 1 through stage 4 chronic kidney disease, or unspecified chronic kidney disease; M48.54XA Collapsed vertebra, not elsewhere classified, thoracic region, initial encounter for fracture; E87.2 Acidosis; J43.9 Emphysema, unspecified; M81.0 Age-related osteoporosis without current pathological fracture; F41.9 Anxiety disorder, unspecified; E78.5 Hyperlipidemia, unspecified; I50.9 Heart failure, unspecified; N18.9 Chronic kidney disease, unspecified; E11.22 Type 2 diabetes mellitus with diabetic chronic kidney disease; M19.90 Unspecified osteoarthritis, unspecified site; J98.4 Other disorders of lung; G89.29 Other chronic pain; E11.42 Type 2 diabetes mellitus with diabetic polyneuropathy; K21.9 Gastro-esophageal reflux disease without esophagitis; M51.37 Other intervertebral disc degeneration, lumbosacral region; Z88.8 Allergy status to other drugs, medicaments and biological substances; Z87.891 Personal history of nicotine dependence; Z86.711 Personal history of pulmonary embolism; Z83.3 Family history of diabetes mellitus; Z82.49 Family history of ischemic heart disease and other diseases of the circulatory system
CPT/HCPCS: 36415; 71045; 72072; 72100; 74176; 80053; 81001; 82962; 83605; 83690; 83880; 84484; 85007; 85025; 85610; 93005; 94640; 94760; G0378; G0379; J1815; J1956; J2060; J7030; J7512; J7620; J7626; J8597

== ENCOUNTER 2019-04-07 12:59 | Emergency (ER) | payer MEDICARE, MEDICAID ==
[~2019-04-07] VITALS: Ht 165.1 cm; Wt 80.0 kg
[~2019-04-07 12:59] MED LIST changes: +TRAZ-118 PO
[2019-04-07] MEDS ORDERED: methylPREDNISolone SOD SUCC PF 125 MG/2 ML VIAL. IV ONE (14:30)
[2019-04-07] MEDS ORDERED: IPRATRPIUM/ALBUTEROL 0.5/2.5MG 3 ML NEBU. NEB ONE (14:30)
[2019-04-07 14:35] LABS: BASO % 0 % (0-3); EOS % 0 % (0-3); HEMATOCRIT 42.2 % (39.0-53.0); HEMOGLOBIN 13.6 g/dL (13.0-17.5); LYMPH # 0.4 x10^3/uL (1.0-4.8); LYMPH % 4 % (24-48); MEAN CORPUSCULAR HEMOGLOBIN 29 pg (25-35); MEAN CORPUSCULAR HGB CONC 32 g/dL (31-37); MEAN CORPUSCULAR VOLUME 90 fL (79-100); MONO # 0.5 x10^3/uL (0.0-1.1); MONO % 5 % (0-9); NEUT # 8.3 x10^3/uL (1.8-7.7); NEUT % 91 % (31-73); PLATELET COUNT 240 x10^3/uL (140-400); RED CELL DISTRIBUTION WIDTH 15.9 % (11.5-14.5); WHITE BLOOD COUNT 9.1 x10^3/uL (4.0-11.0)
[2019-04-07 14:58] LABS: CALCIUM 9.4 mg/dL (8.5-10.1); GFR 92.5
[2019-04-07 15:03] LABS: ALBUMIN 3.7 g/dL (3.4-5.0); ALBUMIN/GLOBULIN RATIO 1.1 (1.0-1.7); MAGNESIUM 1.8 mg/dL (1.8-2.4); TOTAL BILIRUBIN 0.5 mg/dL (0.2-1.0)
[2019-04-07] MEDS ORDERED: methylPREDNISolone SOD SUCC PF 125 MG/2 ML VIAL. IM ONE (15:15)
--- NOTE | 2019-04-07 15:15 | RAD ---
PORTABLE CHEST 1V Clinical indications: Shortness of air. COMPARISON: March 11, 2019. 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 Chronic interstitial lung disease is seen bilaterally most prominent within the right lower lung zone. This is stable. Otherwise no new lung infiltrate or pleural effusion or pneumothorax is seen. The heart size, pulmonary vasculature, mediastinum and both maye are unremarkable. Impression: No acute radiographic abnormality is seen. Electronically signed by: Fransico Lindsey MD (04/07/2019 3:12 PM) [facility] [place]
[2019-04-07 15:51] LABS: % LYMPHS 7 % (24-48); % MONOS 2 % (0-10); % SEGS 91 % (35-66); PLT ESTIMATE ADEQUATE (ADEQUATE)
[2019-04-07 15:52] LABS: BURR CELLS OCC; OVALOCYTES OCC; SCHISTOCYTES OCC
--- NOTE | 2019-04-07 15:52 | EKG ---
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
[2019-04-07] MEDS ORDERED: oxyCODONE IR 5 MG TABLET PO ONE (16:15)
--- NOTE | 2019-04-07 16:19 | PHYS DOC ---
Past Medical History Past Medical History: Anxiety, Bronchitis, CHF, COPD, Other Additional Past Medical Histor: EMPHYSEMA, OSTEOPOROSIS (SD JON APRN) Past Surgical History: No Surgical History Additional Past Surgical Histo: HERNIA REPAIR (SD JON APRN) Smoking Status: Former Smoker Alcohol Use: None Drug Use: Benzodiazepine (SD JON APRN) Adult General Chief Complaint Chief Complaint: SHORTNESS OF BREATH HPI HPI Patient is a 58 year old male with history of COPD, anxiety, CHF, who presents to the ED today complaining of shortness of breath, and chronic cough that begun when he was out shopping and doing his own errands. Denies any fever. Denies any chest pain. (SD JON APRN) Review of Systems Review of Systems Constitutional: Denies fever or chills [] Eyes: Denies change in visual acuity, redness, or eye pain [] HENT: Denies nasal congestion or sore throat [] Respiratory: Reports cough and shortness of breath [] Cardiovascular: No additional information not addressed in HPI [] GI: Denies abdominal pain, nausea, vomiting, bloody stools or diarrhea [] : Denies dysuria or hematuria [] Musculoskeletal: Denies back pain or joint pain [] Integument: Denies rash or skin lesions [] Neurologic: Denies headache, focal weakness or sensory changes [] All other systems were reviewed and found to be within normal limits, except as documented in this note. (SD JON APRN) Current Medications Current Medications Current Medications Medications (Trade) Dose Ordered Sig/Candy Start Time Stop Time Status Last Admin Dose Admin Albuterol/ Ipratropium (Duoneb) 3 ml 1X ONCE 04/07/19 14:30 04/07/19 14:31 DC 04/07/19 14:37 3 ML Methylprednisolone Sodium Succinate (SOLU-Medrol 125MG VIAL) 125 mg 1X ONCE 04/07/19 15:15 04/07/19 15:16 DC Oxycodone HCl (Roxicodone) 5 mg 1X ONCE 04/07/19 16:15 04/07/19 16:16 DC (TEVIN GOODWIN MD) Allergies Allergies Allergies Coded Allergies Type Severity Reaction Last Updated Verified acetaminophen Allergy Intermediate ITCHES 03/12/19 Yes (TEVIN GOODWIN MD) Physical Exam Physical Exam Constitutional: Well developed, well nourished, no acute distress, non-toxic appearance. [] HENT: Normocephalic, atraumatic, bilateral external ears normal, oropharynx moist, no oral exudates, nose normal. [] Eyes: PERRLA, EOMI, conjunctiva normal, no discharge. [] Neck: Normal range of motion, no tenderness, supple, no stridor. [] Cardiovascular:Heart rate regular rhythm, no murmur [] Lungs & Thorax: tight lungs especially posterior lung bases Abdomen: Bowel sounds normal, soft, no tenderness, no masses, no pulsatile masses. [] Skin: Warm, dry, no erythema, no rash. [] Back: No tenderness, no CVA tenderness. [] Extremities: No tenderness, no cyanosis, no clubbing, ROM intact, no edema. [] Neurologic: Alert and oriented X 3, normal motor function, normal sensory function, no focal deficits noted. [] Psychologic: Affect normal, judgement normal, mood normal. [] (SD JON APRN) Current Patient Data Vital Signs Vital Signs Date Time Temp Pulse Resp B/P (MAP) Pulse Ox O2 Delivery O2 Flow Rate FiO2 04/07/19 14:37 97 Nasal Cannula 3.0 (TEVIN GOODWIN MD) Lab Values Laboratory Tests Test 04/07/19 13:45 White Blood Count 9.1 x10^3/uL (4.0-11.0) Red Blood Count 4.70 x10^6/uL (4.30-5.70) Hemoglobin 13.6 g/dL (13.0-17.5) Hematocrit 42.2 % (39.0-53.0) Mean Corpuscular Volume 90 fL (79-100) Mean Corpuscular Hemoglobin 29 pg (25-35) Mean Corpuscular Hemoglobin Concent 32 g/dL (31-37) Red Cell Distribution Width 15.9 % (11.5-14.5) H Platelet Count 240 x10^3/uL (140-400) Neutrophils (%) (Auto) 91 % (31-73) H Lymphocytes (%) (Auto) 4 % (24-48) L Monocytes (%) (Auto) 5 % (0-9) Eosinophils (%) (Auto) 0 % (0-3) Basophils (%) (Auto) 0 % (0-3) Neutrophils # (Auto) 8.3 x10^3/uL (1.8-7.7) H Lymphocytes # (Auto) 0.4 x10^3/uL (1.0-4.8) L Monocytes # (Auto) 0.5 x10^3/uL (0.0-1.1) Eosinophils # (Auto) 0.0 x10^3/uL (0.0-0.7) Basophils # (Auto) 0.0 x10^3/uL (0.0-0.2) Segmented Neutrophils % 91 % (35-66) H Lymphocytes % 7 % (24-48) L Monocytes % 2 % (0-10) Platelet Estimate Adequate (ADEQUATE) Ovalocytes Occ Benjamin Cells Occ Schistocytes Occ Sodium Level 143 mmol/L (136-145) Potassium Level 4.0 mmol/L (3.5-5.1) Chloride Level 100 mmol/L (98-107) Carbon Dioxide Level 35 mmol/L (21-32) H Anion Gap 8 (6-14) Blood Urea Nitrogen 14 mg/dL (8-26) Creatinine 1.0 mg/dL (0.7-1.3) Estimated GFR (Cockcroft-Gault) 92.5 BUN/Creatinine Ratio 14 (6-20) Glucose Level 97 mg/dL (70-99) Calcium Level 9.4 mg/dL (8.5-10.1) Magnesium Level 1.8 mg/dL (1.8-2.4) Total Bilirubin 0.5 mg/dL (0.2-1.0) Aspartate Amino Transferase (AST) 17 U/L (15-37) Alanine Aminotransferase (ALT) 24 U/L (16-63) Alkaline Phosphatase 100 U/L (46-116) Creatine Kinase 119 U/L (39-308) Creatine Kinase MB (Mass) 3.0 ng/mL (0.0-3.6) Creatine Kinase MB Relative Index 2.5 % (0-4) Troponin I Quantitative < 0.017 ng/mL (0.000-0.055) IP-Mpk-S-Type Natriuretic Peptide 64 pg/mL (0-124) Total Protein 7.0 g/dL (6.4-8.2) Albumin 3.7 g/dL (3.4-5.0) Albumin/Globulin Ratio 1.1 (1.0-1.7) Thyroid Stimulating Hormone (TSH) 0.672 uIU/mL (0.358-3.74) Laboratory Tests 04/07/19 13:45 Laboratory Tests 04/07/19 13:45 (TEVIN GOODWIN MD) EKG EKG [address] Hanson sinus tachycardia, HR 107 no STEMI[] (SD JON APRN) Radiology/Procedures Radiology/Procedures []PROCEDURE: PORTABLE CHEST 1V PORTABLE CHEST 1V Clinical indications: Shortness of air. COMPARISON: March 11, 2019. 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 Chronic interstitial lung disease is seen bilaterally most prominent within the right lower lung zone. This is stable. Otherwise no new lung infiltrate or pleural effusion or pneumothorax is seen. The heart size, pulmonary vasculature, mediastinum and both maye are unremarkable. Impression: No acute radiographic abnormality is seen. Electronically signed by: Scotty Lindsey MD (04/07/2019 3:12 PM) [facility] [place] DICTATED and SIGNED BY: SCOTTY LINDSEY MD DATE: 04/07/191511 (SD JON APRN) Course & Med Decision Making Course & Med Decision Making Pertinent Labs and Imaging studies reviewed. (See chart for details) This is a 58-year-old male patient well known to this ED presenting today complaining of shortness of breath and cough. Symptoms are chronic but got worse today while shopping. Chest x-ray interpreted by radiologist is negative for any acute findings, labs are negative for any acute findings. Patient is in no distress he appears much better than many times we have seen him in the ED. He was given a breathing treatment in the ED. O2 sats have remained above 97% on 3 L of oxygen which is what he uses at home he was discharged to home. Follow-up with his own PCP in the course of this week. (SD JON APRN) Course & Med Decision Making Staff Physician Addendum: I was working in the ER during the course of this patient's visit. I was available for consultation as needed, but I was not directly involved in the care of this patient. (TEVIN GOODWIN MD) Dragon Disclaimer Dragon Disclaimer This electronic medical record was generated, in whole or in part, using a voice recognition dictation system. (SD JON APRN) Departure Departure Impression: Primary Impression: COPD (chronic obstructive pulmonary disease) Disposition: HOME, SELF-CARE Condition: STABLE Referrals: UNKNOWN PCP NAME (PCP) follow up with your doctor in the course of this week Patient Instructions: Chronic Obstructive Pulmonary Disease Additional Instructions: Your work up in the emergency room was negative for any acute findings. Please continue breathing treatments at home. Please follow-up with your own doctor in the course of this week or next week. Problem Qualifiers Primary Impression: COPD (chronic obstructive pulmonary disease) COPD type: unspecified COPD Qualified Codes: J44.9 - Chronic obstructive pulmonary disease, unspecified SD JON APRN Apr 07, 2019 16:19 TEVIN GOODWIN MD Apr 07, 2019 16:38
[2019-04-07 16:30] VITALS: BP 117/82
== END 2019-04-07 16:55 | disposition home or self-care (01) ==
LOC: ER 12:59
DX: J44.9 Chronic obstructive pulmonary disease, unspecified (principal); Z87.891 Personal history of nicotine dependence; F41.9 Anxiety disorder, unspecified; Z86.79 Personal history of other diseases of the circulatory system; Z88.6 Allergy status to analgesic agent
CPT/HCPCS: 36415; 71045; 80053; 82553; 83735; 83880; 84443; 84484; 85007; 85025; 93005; 94640; 96372; 99285; J2930; J7620

== ENCOUNTER 2019-04-16 13:05 | Emergency (ER) | payer MEDICARE, MEDICAID ==
[~2019-04-16] VITALS: Ht 167.6 cm; Wt 73.0 kg
--- NOTE | 2019-04-16 15:25 | PHYS DOC ---
Past Medical History Past Medical History: Anxiety, CHF, COPD, Other Additional Past Medical Histor: OSTEOPOROSIS Past Surgical History: No Surgical History Additional Past Surgical Histo: HERNIA REPAIR Smoking Status: Former Smoker Alcohol Use: Occasionally Drug Use: Benzodiazepine Adult General Chief Complaint Chief Complaint: SHORTNESS OF BREATH [facility] HPI Patient is a 58 year old male who presented shortness of breath. States that his shortness of breath feels similar to when he normally has, however has felt a little bit hoarse the last couple days. States he has a history of COPD. Some oxygen at 3 L at home. States he has felt some tightness in his chest over the past couple days, feeling a little worse than usual. Denies any pain, Denies any nausea, States he had been seen at [facility] approximately 2 weeks ago for similar. Patient states he does take prednisone 10 mg daily, however he has increased his dose to 20 mg each day for the last 3 days. Review of Systems Review of Systems Constitutional: Denies fever or chills [] Eyes: Denies change in visual acuity, redness, or eye pain [] HENT: Denies nasal congestion or sore throat [] Respiratory: Reports cough, congestion, shortness of breath. Cardiovascular: No additional information not addressed in HPI [] GI: Denies abdominal pain, nausea, vomiting, bloody stools or diarrhea [] : Denies dysuria or hematuria [] Musculoskeletal: Denies back pain or joint pain [] Integument: Denies rash or skin lesions [] Neurologic: Denies headache, focal weakness or sensory changes [] Endocrine: Denies polyuria or polydipsia [] All other systems were reviewed and found to be within normal limits, except as documented in this note. Current Medications Current Medications Current Medications Medications (Trade) Dose Ordered Sig/Candy Start Time Stop Time Status Last Admin Dose Admin Albuterol/ Ipratropium (Duoneb) 3 ml 1X ONCE 04/16/19 17:00 04/16/19 17:01 DC 04/16/19 17:23 3 ML Ketorolac Tromethamine (Toradol 15mg Vial) 15 mg 1X ONCE 04/16/19 17:00 04/16/19 17:01 DC 04/16/19 17:08 15 MG Methylprednisolone Sodium Succinate (SOLU-Medrol 125MG VIAL) 125 mg 1X ONCE 04/16/19 15:30 04/16/19 15:31 DC 04/16/19 16:50 125 MG Allergies Allergies Allergies Coded Allergies Type Severity Reaction Last Updated Verified acetaminophen Allergy Intermediate ITCHES 03/12/19 Yes Physical Exam Physical Exam Constitutional: Well developed, well nourished, no acute distress, non-toxic appearance. [] HENT: Normocephalic, atraumatic, bilateral external ears normal, oropharynx moist, no oral exudates, nose normal. [] Eyes: PERRLA, EOMI, conjunctiva normal, no discharge. [] Neck: Normal range of motion, no tenderness, supple, no stridor. [] Cardiovascular:Heart rate regular rhythm, no murmur [] Lungs & Thorax: Bilateral diminished breath sounds faint wheeze noted. Patient occasional cough, able to speak in 5-6 word sentences.[] Abdomen: Bowel sounds normal, soft, no tenderness, no masses, no pulsatile masses. [] Skin: Warm, dry, no erythema, no rash. [] Back: No tenderness, no CVA tenderness. [] Extremities: No tenderness, no cyanosis, no clubbing, ROM intact, no edema. [] Neurologic: Alert and oriented X 3, normal motor function, normal sensory function, no focal deficits noted. [] Psychologic: Affect normal, judgement normal, mood normal. [] Current Patient Data Vital Signs Vital Signs Date Time Temp Pulse Resp B/P (MAP) Pulse Ox O2 Delivery O2 Flow Rate FiO2 04/16/19 17:23 100 Nasal Cannula 3.0 04/16/19 17:06 104 24 113/74 (87) 04/16/19 15:09 98.7 98.7 Lab Values Laboratory Tests Test 04/16/19 15:20 04/16/19 16:38 Urine Collection Type Void Urine Color Yellow Urine Clarity Clear Urine pH 5.0 Urine Specific [place] 1.020 Urine Protein Negative mg/dL (NEG-TRACE) Urine Glucose (UA) 500 mg/dL (NEG) Urine Ketones (Stick) Negative mg/dL (NEG) Urine Blood Negative (NEG) Urine Nitrite Negative (NEG) Urine Bilirubin Negative (NEG) Urine Urobilinogen Dipstick 1.0 mg/dL (0.2 mg/dL) Urine Leukocyte Esterase Negative (NEG) Urine RBC 0 /HPF (0-2) Urine WBC 0 /HPF (0-4) Urine Squamous Epithelial Cells Occ /LPF Urine Bacteria 0 /HPF (0-FEW) Urine Mucus Mod /LPF White Blood Count 10.3 x10^3/uL (4.0-11.0) Red Blood Count 4.79 x10^6/uL (4.30-5.70) Hemoglobin 14.3 g/dL (13.0-17.5) Hematocrit 42.7 % (39.0-53.0) Mean Corpuscular Volume 89 fL (79-100) Mean Corpuscular Hemoglobin 30 pg (25-35) Mean Corpuscular Hemoglobin Concent 34 g/dL (31-37) Red Cell Distribution Width 15.8 % (11.5-14.5) H Platelet Count 159 x10^3/uL (140-400) Neutrophils (%) (Auto) 89 % (31-73) H Lymphocytes (%) (Auto) 5 % (24-48) L Monocytes (%) (Auto) 5 % (0-9) Eosinophils (%) (Auto) 0 % (0-3) Basophils (%) (Auto) 1 % (0-3) Neutrophils # (Auto) 9.2 x10^3/uL (1.8-7.7) H Lymphocytes # (Auto) 0.5 x10^3/uL (1.0-4.8) L Monocytes # (Auto) 0.6 x10^3/uL (0.0-1.1) Eosinophils # (Auto) 0.0 x10^3/uL (0.0-0.7) Basophils # (Auto) 0.1 x10^3/uL (0.0-0.2) Segmented Neutrophils % 82 % (35-66) H Lymphocytes % 10 % (24-48) L Monocytes % 8 % (0-10) Toxic Granulation Slight Toxic Vacuolation Slight Platelet Estimate Adequate (ADEQUATE) Sodium Level 136 mmol/L (136-145) Potassium Level 4.8 mmol/L (3.5-5.1) Chloride Level 98 mmol/L (98-107) Carbon Dioxide Level 33 mmol/L (21-32) H Anion Gap 5 (6-14) L Blood Urea Nitrogen 22 mg/dL (8-26) Creatinine 0.9 mg/dL (0.7-1.3) Estimated GFR (Cockcroft-Gault) 104.5 BUN/Creatinine Ratio 24 (6-20) H Glucose Level 140 mg/dL (70-99) H Calcium Level 9.6 mg/dL (8.5-10.1) Total Bilirubin 0.6 mg/dL (0.2-1.0) Aspartate Amino Transferase (AST) 20 U/L (15-37) Alanine Aminotransferase (ALT) 25 U/L (16-63) Alkaline Phosphatase 95 U/L (46-116) Troponin I Quantitative < 0.017 ng/mL (0.000-0.055) Total Protein 7.2 g/dL (6.4-8.2) Albumin 3.7 g/dL (3.4-5.0) Albumin/Globulin Ratio 1.1 (1.0-1.7) Laboratory Tests 04/16/19 16:38 Laboratory Tests 04/16/19 16:38 EKG EKG Sinus Tachycardia per Dr Casillas @ 1459. no STEMI. [] Radiology/Procedures Radiology/Procedures History: Shortness of breath. Comparison: 04/07/2019. FINDINGS: Cardiomediastinal silhouette is stable. Aorta is tortuous and ectatic, similar to prior study. No evidence of pneumothorax. Interstitial markings of both lung bases appears similar to previous exam. No large effusion. Bones appear grossly intact. Emphysematous changes are again noted. IMPRESSION: Similar appearance, without evidence of consolidating infiltrate. Interstitial markings of both lung bases are stable, likely fibrotic. Electronically signed by: Mikael Nguyen MD (04/16/2019 3:57 PM) [id number] [] Course & Med Decision Making Course & Med Decision Making Pertinent Labs and Imaging studies reviewed. (See chart for details) [Following breathing treatments and steroids, patient remains resting calmly in room, SpO2 maintaining 95% on 3lpm. Patient in no apparent air hunger, conversing in multiple word sentences. Will recommend patient continue his home breathing treatments and follow up with PCP. Patient in agreement with plan without further questions or concerns Dragon Disclaimer Dragon Disclaimer This electronic medical record was generated, in whole or in part, using a voice recognition dictation system. Departure Departure Impression: Primary Impression: Acute exacerbation of chronic obstructive pulmonary disease (COPD) Disposition: HOME, SELF-CARE Condition: GOOD Referrals: UNKNOWN PCP NAME (PCP) Patient Instructions: Chronic Obstructive Pulmonary Disease Exacerbation, [id number] Additional Instructions: Keep Using your inhaler at home. Follow-up with your primary care provider as needed ERNESTO DECKER APRN Apr 16, 2019 15:25
[2019-04-16] MEDS ORDERED: methylPREDNISolone SOD SUCC PF 125 MG/2 ML VIAL. IV ONE (15:30)
[2019-04-16] MEDS ORDERED: IPRATRPIUM/ALBUTEROL 0.5/2.5MG 3 ML NEBU. NEB ONE ×2 (15:30→17:00)
[2019-04-16 15:40] LABS: BILIRUBIN,URINE NEGATIVE (NEG); COLOR,URINE YELLOW; NITRITE,URINE NEGATIVE (NEG); PROTEIN,URINE NEGATIVE (NEG-TRACE)
[2019-04-16 15:50] LABS: CLARITY,URINE CLEAR
[2019-04-16 15:52] LABS: BACTERIA,URINE 0 /HPF (0-FEW); RBC,URINE 0 /HPF (0-2); SQUAMOUS EPITHELIAL CELL,UR OCC /LPF; WBC,URINE 0 /HPF (0-4)
--- NOTE | 2019-04-16 15:54 | EKG ---
[facility] [address] [place] [address] Test Date: 2019-04-16 Test Time: 14:56:46 Pat Name: KAYLA JONES Department: Room: Gender: Review Analyst: : 1960 Requested By: ERNESTO DECKER Order Number: [id number] Reading MD: Measurements Intervals [place] Rate: 109 P: 62 FL: 148 QRS: 36 QRSD: 86 T: 68 QT: 320 QTc: 432 Interpretive Statements SINUS TACHYCARDIA NO SPECIFIC ECG ABNORMALITIES RI6.01 No previous ECG available for comparison
--- NOTE | 2019-04-16 16:00 | RAD ---
CHEST AP ONLY History: Shortness of breath. Comparison: 04/07/2019. FINDINGS: Cardiomediastinal silhouette is stable. Aorta is tortuous and ectatic, similar to prior study. No evidence of pneumothorax. Interstitial markings of both lung bases appears similar to previous exam. No large effusion. Bones appear grossly intact. Emphysematous changes are again noted. IMPRESSION: Similar appearance, without evidence of consolidating infiltrate. Interstitial markings of both lung bases are stable, likely fibrotic. Electronically signed by: Mikael Nguyen MD (04/16/2019 3:57 PM) [id number]
[2019-04-16 16:53] LABS: BASO # 0.1 x10^3/uL (0.0-0.2); BASO % 1 % (0-3); EOS % 0 % (0-3); HEMATOCRIT 42.7 % (39.0-53.0); HEMOGLOBIN 14.3 g/dL (13.0-17.5); LYMPH # 0.5 x10^3/uL (1.0-4.8); LYMPH % 5 % (24-48); MEAN CORPUSCULAR HEMOGLOBIN 30 pg (25-35); MEAN CORPUSCULAR HGB CONC 34 g/dL (31-37); MEAN CORPUSCULAR VOLUME 89 fL (79-100); MONO # 0.6 x10^3/uL (0.0-1.1); MONO % 5 % (0-9); NEUT # 9.2 x10^3/uL (1.8-7.7); NEUT % 89 % (31-73); PLATELET COUNT 159 x10^3/uL (140-400); RED BLOOD COUNT 4.79 x10^6/uL (4.30-5.70); RED CELL DISTRIBUTION WIDTH 15.8 % (11.5-14.5); WHITE BLOOD COUNT 10.3 x10^3/uL (4.0-11.0)
[2019-04-16] MEDS ORDERED: KETOROLAC 15 MG/ML VIAL. IVP ONE (17:00)
[2019-04-16 17:03] LABS: CALCIUM 9.6 mg/dL (8.5-10.1); CREATININE 0.9 mg/dL (0.7-1.3); GFR 104.5; POTASSIUM 4.8 mmol/L (3.5-5.1)
[2019-04-16 17:08] LABS: % LYMPHS 10 % (24-48); % MONOS 8 % (0-10); % SEGS 82 % (35-66)
[2019-04-16 17:09] LABS: ALBUMIN 3.7 g/dL (3.4-5.0); ALBUMIN/GLOBULIN RATIO 1.1 (1.0-1.7); TOTAL BILIRUBIN 0.6 mg/dL (0.2-1.0); TOTAL PROTEIN 7.2 g/dL (6.4-8.2)
[2019-04-16 17:11] LABS: PLT ESTIMATE ADEQUATE (ADEQUATE); TOXIC GRANULATION SLIGHT; TOXIC VACUOLATION SLIGHT
[2019-04-16 17:58] VITALS: BP 133/78
== END 2019-04-16 18:40 | disposition home or self-care (01) ==
LOC: ER 13:05
DX: J44.1 Chronic obstructive pulmonary disease with (acute) exacerbation (principal); R07.89 Other chest pain; F41.9 Anxiety disorder, unspecified; I50.9 Heart failure, unspecified; F15.90 Other stimulant use, unspecified, uncomplicated; Z87.891 Personal history of nicotine dependence; Z98.890 Other specified postprocedural states; Z88.6 Allergy status to analgesic agent
CPT/HCPCS: 36415; 71045; 80053; 81001; 84484; 85007; 85025; 93005; 94640; 96374; 96375; 99285; J1885; J2930

== ENCOUNTER 2019-04-20 13:23 | Emergency (ER) | payer MEDICARE, MEDICAID ==
[~2019-04-20] VITALS: Ht 180.3 cm; Wt 72.0 kg
[2019-04-20] MEDS ORDERED: IPRATRPIUM/ALBUTEROL 0.5/2.5MG 3 ML NEBU. NEB ONE ×2 (13:45→14:45)
--- NOTE | 2019-04-20 13:51 | PHYS DOC ---
Past Medical History Past Medical History: Anxiety, CHF, COPD, Other Additional Past Medical Histor: OSTEOPOROSIS Past Surgical History: No Surgical History Additional Past Surgical Histo: HERNIA REPAIR Smoking Status: Former Smoker Alcohol Use: Occasionally Drug Use: Benzodiazepine Adult General Chief Complaint Chief Complaint: SHORTNESS OF BREATH [facility] HPI Patient is a 58-year-old male, who is very familiar to me from prior ER visits, who presents to the emergency department for evaluation. He states he has had increasing shortness of breath and a cough, triggered by his anxiety. He has a history of COPD, and is dependent on oxygen, 3 L chronically. His oxygen saturation is 99% upon arrival in the emergency department. He was seen in this emergency department 4 days ago, had some blood testing done at that time, results have been reviewed. He has not had any fevers or chills. He reports a cough productive of pinkish and greenish sputum, which is somewhat of a frequent issue for him. He denies any new pain other than his chronic back pain. There are no alleviating or exacerbating factors to his symptoms otherwise. Review of Systems Review of Systems Constitutional: Denies fever or chills [] Eyes: Denies change in visual acuity, redness, or eye pain [] HENT: Denies nasal congestion or sore throat [] Respiratory: No other information other than as noted in the HPI [] Cardiovascular: The patient denies any shortness of breath, chest pain, palpitations, or orthopnea [] GI: Denies abdominal pain, nausea, vomiting, bloody stools or diarrhea [] : Denies dysuria or hematuria [] Musculoskeletal: Denies back pain or joint pain [] Integument: Denies rash or skin lesions [] Neurologic: Denies headache, focal weakness or sensory changes [] Endocrine: Denies polyuria or polydipsia [] All other systems were reviewed and found to be within normal limits, except as documented in this note. Current Medications Current Medications Current Medications Medications (Trade) Dose Ordered Sig/Candy Start Time Stop Time Status Last Admin Dose Admin Albuterol/ Ipratropium (Duoneb) 3 ml 1X ONCE 04/20/19 13:45 04/20/19 13:49 DC 04/20/19 13:49 3 ML Allergies Allergies Allergies Coded Allergies Type Severity Reaction Last Updated Verified acetaminophen Allergy Intermediate ITCHES 03/12/19 Yes Physical Exam Physical Exam PHYSICAL EXAM: CONSTITUTIONAL: Well developed, well nourished HEAD: normocephalic, atraumatic EENT: PERRL, EOMI. Conjunctivae normal color, sclerae non-icteric; moist mucous membranes. NECK: Supple, non-tender; no meningismus. LUNGS: There are globally diminished breath sounds, with some faint expiratory wheezes, without rales or rhonchi. HEART: Regular rate and rhythm, no murmur CHEST: No deformity; non-tender ABDOMEN: The abdomen is soft, and non-tender, no masses or bruits. EXTREM: Normal ROM; no deformity, no calf tenderness. Normal pulses palpable in all extremities. There is no pedal edema. SKIN: No rash; no diaphoresis NEURO: Alert; normal speech and cognition; CN's grossly intact; strength grossly intact without focal deficit. BACK: No CVA TTP. PSYCHIATRIC: The patient exhibits a moderately anxious affect. Current Patient Data Vital Signs Vital Signs Date Time Temp Pulse Resp B/P (MAP) Pulse Ox O2 Delivery O2 Flow Rate FiO2 04/20/19 13:50 Nasal Cannula 3.0 04/20/19 13:35 98.5 83 22 101/61 (74) 95 98.5 Lab Values Laboratory Tests Test 04/20/19 13:50 Influenza Type A Antigen Negative (NEGATIVE) Influenza Type B Antigen Negative (NEGATIVE) EKG EKG Normal sinus rhythm at a rate of 97 bpm, normal axis, normal intervals. Nonspecific ST/T changes. [] Radiology/Procedures Radiology/Procedures PROCEDURE: CHEST PA & LATERAL Exam performed: 2 views of the chest. Indication: Cough and shortness of breath Date of Service: 04/20/2019 1:43 PM . Comparison : One view chest from 04/16/2019 and priors Findings: PA and lateral radiographs of the chest reveal a normal cardiomediastinal contour. Diffuse emphysematous changes seen in both lungs, predominantly the left lung. The appearance is unchanged. No pleural fluid is seen. The visualized osseous structures are unremarkable. Impression: Stable one view chest. No acute findings noted. [] Course & Med Decision Making Course & Med Decision Making Pertinent Labs and Imaging studies reviewed. (See chart for details) [] Patient remains stable. I discussed test results, the need for close follow- up, and return precautions. Dragon Disclaimer Dragon Disclaimer This electronic medical record was generated, in whole or in part, using a voice recognition dictation system. Departure Departure Impression: Primary Impression: COPD (chronic obstructive pulmonary disease) Additional Impression: Anxiety Disposition: 01 HOME, SELF-CARE Condition: STABLE Referrals: UNKNOWN PCP NAME (PCP) Patient Instructions: Anxiety and Panic Attacks, Chronic Obstructive Pulmonary Disease Problem Qualifiers SHAYY GRIFFITH MD Apr 20, 2019 13:51
[2019-04-20 14:21] LABS: INFLUENZA A PATIENT NEGATIVE (NEGATIVE); INFLUENZA B PATIENT NEGATIVE (NEGATIVE)
[2019-04-20 14:30] VITALS: BP 101/57
--- NOTE | 2019-04-20 14:34 | RAD ---
Exam performed: 2 views of the chest. Indication: Cough and shortness of breath Date of Service: 04/20/2019 1:43 PM . Comparison : One view chest from 04/16/2019 and priors Findings: PA and lateral radiographs of the chest reveal a normal cardiomediastinal contour. Diffuse emphysematous changes seen in both lungs, predominantly the left lung. The appearance is unchanged. No pleural fluid is seen. The visualized osseous structures are unremarkable. Impression: Stable one view chest. No acute findings noted. Electronically signed by: Doreen Hayden MD (04/20/2019 2:32 PM) [id number]
[2019-04-20] MEDS ORDERED: methylPREDNISolone SOD SUCC PF 125 MG/2 ML VIAL. IM ONE (14:45)
--- NOTE | 2019-04-20 19:42 | EKG ---
[facility] [address] [place] [address] Test Date: 2019-04-20 Test Time: 14:02:48 Pat Name: KAYLA JONES Department: Room: Gender: [employer] Crewmember: : 1960 Requested By: SHAYY GRIFFITH Order Number: [id number] Reading MD: Measurements Intervals [place] Rate: 97 P: 63 NV: 150 QRS: 29 QRSD: 86 T: 56 QT: 340 QTc: 436 Interpretive Statements SINUS RHYTHM T ABNORMALITY IN ANTEROSEPTAL LEADS ABNORMAL ECG RI6.01 No previous ECG available for comparison
== END 2019-04-20 15:23 | disposition home or self-care (01) ==
LOC: ER 13:23
DX: J44.9 Chronic obstructive pulmonary disease, unspecified (principal); F41.9 Anxiety disorder, unspecified; G89.29 Other chronic pain; M54.9 Dorsalgia, unspecified; Z87.891 Personal history of nicotine dependence; Z98.890 Other specified postprocedural states; Z86.79 Personal history of other diseases of the circulatory system; Z88.6 Allergy status to analgesic agent
CPT/HCPCS: 71046; 87804; 93005; 94640; 96372; 99285; J2930

== ENCOUNTER 2019-04-23 14:13 | Emergency (ER) | payer MEDICARE, MEDICAID ==
[~2019-04-23] VITALS: Ht 180.3 cm; Wt 72.2 kg
--- NOTE | 2019-04-23 15:44 | PHYS DOC ---
Past Medical History Past Medical History: Anxiety, CHF, COPD, Other Additional Past Medical Histor: OSTEOPOROSIS Past Surgical History: No Surgical History Additional Past Surgical Histo: HERNIA REPAIR Smoking Status: Current Every Day Smoker Alcohol Use: Occasionally Drug Use: Benzodiazepine Adult General Chief Complaint Chief Complaint: SHORTNESS OF BREATH HPI HPI Patient is a 58 year old male who presents with shortness of breath. Patient states he is been feeling shortness of breath on and off for the last several weeks, states he has been to research and treatment over the last couple days, as well as had been seen in this ER recently. States no fever, does state he has been around several other people who have been ill, with fevers and coughing. States he has not had fevers himself, he has been taking his breathing treatments. He has tried taking some Mucinex which did seem to help a little, however he is only taking it 1 time. States he is using his oxygen as normal, no change from normal. Review of Systems Review of Systems Constitutional: Denies fever or chills [] HENT: Reports he is feeling some nasal congestion, denies sore throat [] Respiratory: Reports cough and shortness of breath, similar to what he normally feels [] Cardiovascular: No additional information not addressed in HPI [] GI: Denies abdominal pain, nausea, vomiting, bloody stools or diarrhea [] : Denies dysuria or hematuria [] Musculoskeletal: Denies back pain or joint pain [] Integument: Denies rash or skin lesions [] All other systems were reviewed and found to be within normal limits, except as documented in this note. Current Medications Current Medications Current Medications Medications (Trade) Dose Ordered Sig/Candy Start Time Stop Time Status Last Admin Dose Admin Albuterol/ Ipratropium (Duoneb) 3 ml 1X ONCE 04/23/19 19:00 04/23/19 19:09 DC 04/23/19 19:14 3 ML Dexamethasone (Decadron) 4 mg 1X ONCE 04/23/19 17:45 04/23/19 17:46 DC Allergies Allergies Allergies Coded Allergies Type Severity Reaction Last Updated Verified acetaminophen Allergy Intermediate ITCHES 03/12/19 Yes Physical Exam Physical Exam Constitutional: Well developed, well nourished, no acute distress, non-toxic appearance. [] HENT: Normocephalic, atraumatic,, oropharynx moist, no oral exudates, nose normal. [] Eyes: PERRLA, EOMI, conjunctiva normal, no discharge. [] Neck: Normal range of motion, no tenderness, supple, no stridor. [] Cardiovascular:Heart rate regular rhythm, no murmur [] Lungs & Thorax: Bilateral diminished breath sounds [] Abdomen: Bowel sounds normal, soft, no tenderness, no masses, no pulsatile masses. [] Skin: Warm, dry, no erythema, no rash. [] Back: No tenderness, no CVA tenderness. [] Extremities: No tenderness, no cyanosis, no clubbing, ROM intact, no edema. [] Neurologic: Alert and oriented X 3, normal motor function, normal sensory function, no focal deficits noted. [] Psychologic: Affect normal, judgement normal, mood normal. [] Current Patient Data Vital Signs Vital Signs Date Time Temp Pulse Resp B/P (MAP) Pulse Ox O2 Delivery O2 Flow Rate FiO2 04/23/19 20:00 98 16 120/72 (88) 99 Nasal Cannula 3.0 04/23/19 15:01 99.8 99.8 EKG EKG [] Radiology/Procedures Radiology/Procedures Clinical History: Shortness of breath. An AP erect portable digital radiograph of the chest was obtained. Comparison study is dated 04/20/2019. The cardiac silhouette is borderline enlarged. The thoracic aorta is mildly tortuous. Areas of subsegmental atelectasis and/or scarring are seen involving both lower lobes. No area of consolidation is seen. No pneumothorax or pleural effusion is noted. The osseous structures are unchanged. Impression: No area of consolidation is seen. Electronically signed by: Herminio Blevins MD (04/23/2019 3:52 PM) [facility] [place][] Course & Med Decision Making Course & Med Decision Making Pertinent Labs and Imaging studies reviewed. (See chart for details) [] Following additional breathing treatment, patient reports he still feels the same. Patient noted to increased air movement, with faint wheezes noted. Will repeat breathing treatment. @1999 patient reporting he does not feel better than when he came in. States he continues to cough up some clear mucus. Discussed findings with patient, with importance of continued to take his Mucinex, and his home medications. Patient no further questions or concerns, in agreement to discharge, does state he was little concerned because everyone at home seems to have been sick, with similar URI symptoms. Todd Disclaimer Harshon Disclaimer This electronic medical record was generated, in whole or in part, using a voice recognition dictation system. Departure Departure Impression: Primary Impression: Acute exacerbation of chronic obstructive pulmonary disease (COPD) Disposition: 01 HOME, SELF-CARE Condition: STABLE Referrals: UNKNOWN PCP NAME (PCP) Patient Instructions: Chronic Obstructive Pulmonary Disease Exacerbation Additional Instructions: As we discussed, continue to take your Mucinex for your cough and congestion. Continue to use your breathing treatments at home. Follow-up with your primary care provider as needed. Be sure to wash your hands well when around other sick people at home. ERNESTO DECKER APRN Apr 23, 2019 15:44
[2019-04-23] MEDS ORDERED: IPRATRPIUM/ALBUTEROL 0.5/2.5MG 3 ML NEBU. NEB ONE ×3 (15:45→19:00)
--- NOTE | 2019-04-23 15:55 | RAD ---
AP portable chest radiograph 04/23/2019 Clinical History: Shortness of breath. An AP erect portable digital radiograph of the chest was obtained. Comparison study is dated 04/20/2019. The cardiac silhouette is borderline enlarged. The thoracic aorta is mildly tortuous. Areas of subsegmental atelectasis and/or scarring are seen involving both lower lobes. No area of consolidation is seen. No pneumothorax or pleural effusion is noted. The osseous structures are unchanged. Impression: No area of consolidation is seen. Electronically signed by: Herminio Blevins MD (04/23/2019 3:52 PM) [facility] [place]
[2019-04-23] MEDS ORDERED: DEXAMETHASONE 4 MG TABLET PO SCH (16:15)
[2019-04-23] MEDS ORDERED: DEXAMETHASONE 4 MG TABLET PO ONE (17:45)
[2019-04-23 20:00] VITALS: BP 120/72
[2019-04-24] MEDS ORDERED: DEXAMETHASONE 4 MG TABLET PO SCH (09:00)
== END 2019-04-23 20:50 | disposition home or self-care (01) ==
LOC: ER 14:13
DX: J44.1 Chronic obstructive pulmonary disease with (acute) exacerbation (principal); F17.200 Nicotine dependence, unspecified, uncomplicated; Z88.6 Allergy status to analgesic agent
CPT/HCPCS: 71045; 94640; 99285; J8540

== ENCOUNTER 2019-04-26 15:30 | Emergency (ER) | payer MEDICARE, MEDICAID ==
[~2019-04-26] VITALS: Ht 170.2 cm; Wt 70.0 kg
[2019-04-26] MEDS ORDERED: IPRATRPIUM/ALBUTEROL 0.5/2.5MG 3 ML NEBU. NEB ONE (15:45)
[2019-04-26] MEDS ORDERED: methylPREDNISolone SOD SUCC PF 125 MG/2 ML VIAL. IV ONE (15:45)
[2019-04-26] MEDS ORDERED: MORPHINE SULFATE 4 MG/ML VIAL. IV/SQ PRN (15:45)
--- NOTE | 2019-04-26 16:01 | PHYS DOC ---
Past Medical History Past Medical History: Anxiety, CHF, COPD, Other Additional Past Medical Histor: OSTEOPOROSIS Past Surgical History: No Surgical History Additional Past Surgical Histo: HERNIA REPAIR Smoking Status: Current Every Day Smoker Alcohol Use: Occasionally Drug Use: Benzodiazepine Adult General HPI HPI Patient is a 58 year old male with history of CHF, end-stage COPD who presents to the ED today complaining of shortness of breath for 3 days. Patient denies any fever. He reports trying to use his inhaler with no relief. Of note patient was seen in the ED 3 days ago for the same complaint Review of Systems Review of Systems Constitutional: Denies fever or chills [] Eyes: Denies change in visual acuity, redness, or eye pain [] HENT: Denies nasal congestion or sore throat [] Respiratory: Reports shortness of breath. Denies cough Cardiovascular: No additional information not addressed in HPI [] GI: Denies abdominal pain, nausea, vomiting, bloody stools or diarrhea [] : Denies dysuria or hematuria [] Musculoskeletal: Denies back pain or joint pain [] Integument: Denies rash or skin lesions [] Neurologic: Denies headache, focal weakness or sensory changes [] All other systems were reviewed and found to be within normal limits, except as documented in this note. Current Medications Current Medications Current Medications Medications (Trade) Dose Ordered Sig/Candy Start Time Stop Time Status Last Admin Dose Admin Albuterol/ Ipratropium (Duoneb) 3 ml 1X ONCE 04/26/19 15:45 04/26/19 15:46 DC 04/26/19 15:58 3 ML Azithromycin (Zithromax) 500 mg 1X ONCE 04/26/19 17:45 04/26/19 17:46 Methylprednisolone Sodium Succinate (SOLU-Medrol 125MG VIAL) 125 mg 1X ONCE 04/26/19 16:15 04/26/19 16:16 DC 04/26/19 16:15 125 MG Morphine Sulfate (Morphine Sulfate) 4 mg PRN Q15MIN PRN 04/26/19 15:45 04/26/19 16:14 DC Allergies Allergies Allergies Coded Allergies Type Severity Reaction Last Updated Verified acetaminophen Allergy Intermediate ITCHES 03/12/19 Yes Physical Exam Physical Exam Constitutional: Well developed, well nourished, no acute distress, non-toxic appearance. [] HENT: Normocephalic, atraumatic, bilateral external ears normal, oropharynx moist, no oral exudates, nose normal. [] Eyes: PERRLA, EOMI, conjunctiva normal, no discharge. [] Neck: Normal range of motion, no tenderness, supple, no stridor. [] Cardiovascular:Heart rate regular rhythm, no murmur [] Lungs & Thorax: Bilateral breath sounds clear to auscultation [] Abdomen: Bowel sounds normal, soft, no tenderness, no masses, no pulsatile masses. [] Skin: Warm, dry, no erythema, no rash. [] Back: No tenderness, no CVA tenderness. [] Extremities: No tenderness, no cyanosis, no clubbing, ROM intact, no edema. [] Neurologic: Alert and oriented X 3, normal motor function, normal sensory function, no focal deficits noted. [] Psychologic: Affect normal, judgement normal, mood normal. [] Current Patient Data Vital Signs Vital Signs Date Time Temp Pulse Resp B/P (MAP) Pulse Ox O2 Delivery O2 Flow Rate FiO2 04/26/19 16:08 100 Nasal Cannula 3.0 04/26/19 15:30 98.9 112 24 143/86 (105) 98.9 Lab Values Laboratory Tests Test 04/26/19 15:53 White Blood Count 10.2 x10^3/uL (4.0-11.0) Red Blood Count 3.94 x10^6/uL (4.30-5.70) L Hemoglobin 11.7 g/dL (13.0-17.5) L Hematocrit 35.0 % (39.0-53.0) L Mean Corpuscular Volume 89 fL (79-100) Mean Corpuscular Hemoglobin 30 pg (25-35) Mean Corpuscular Hemoglobin Concent 33 g/dL (31-37) Red Cell Distribution Width 15.5 % (11.5-14.5) H Platelet Count 194 x10^3/uL (140-400) Neutrophils (%) (Auto) 92 % (31-73) H Lymphocytes (%) (Auto) 3 % (24-48) L Monocytes (%) (Auto) 5 % (0-9) Eosinophils (%) (Auto) 0 % (0-3) Basophils (%) (Auto) 0 % (0-3) Neutrophils # (Auto) 9.3 x10^3/uL (1.8-7.7) H Lymphocytes # (Auto) 0.3 x10^3/uL (1.0-4.8) L Monocytes # (Auto) 0.5 x10^3/uL (0.0-1.1) Eosinophils # (Auto) 0.0 x10^3/uL (0.0-0.7) Basophils # (Auto) 0.0 x10^3/uL (0.0-0.2) Segmented Neutrophils % 93 % (35-66) H Band Neutrophils % 3 % (0-9) Lymphocytes % 2 % (24-48) L Monocytes % 2 % (0-10) Platelet Estimate Adequate (ADEQUATE) Giant Platelets Occ Tear Drop Cells Occ Ovalocytes Few Prothrombin Time 12.3 SEC (11.7-14.0) Prothrombin Time INR 1.0 (0.8-1.1) Activated Partial Thromboplast Time 23 SEC (24-38) L Sodium Level 147 mmol/L (136-145) H Potassium Level 3.5 mmol/L (3.5-5.1) Chloride Level 106 mmol/L (98-107) Carbon Dioxide Level 31 mmol/L (21-32) Anion Gap 10 (6-14) Blood Urea Nitrogen 19 mg/dL (8-26) Creatinine 1.0 mg/dL (0.7-1.3) Estimated GFR (Cockcroft-Gault) 92.5 BUN/Creatinine Ratio 19 (6-20) Glucose Level 126 mg/dL (70-99) H Calcium Level 9.7 mg/dL (8.5-10.1) Total Bilirubin 0.3 mg/dL (0.2-1.0) Aspartate Amino Transferase (AST) 12 U/L (15-37) L Alanine Aminotransferase (ALT) 20 U/L (16-63) Alkaline Phosphatase 74 U/L (46-116) Creatine Kinase 132 U/L (39-308) Creatine Kinase MB (Mass) 2.6 ng/mL (0.0-3.6) Creatine Kinase MB Relative Index 2.0 % (0-4) Total Protein 6.2 g/dL (6.4-8.2) L Albumin 2.7 g/dL (3.4-5.0) L Albumin/Globulin Ratio 0.8 (1.0-1.7) L Procalcitonin < 0.10 ng/mL (0.00-0.10) Laboratory Tests 04/26/19 15:53 Laboratory Tests 04/26/19 15:53 EKG EKG [] Radiology/Procedures Radiology/Procedures []PROCEDURE: PORTABLE CHEST 1V EXAM: Chest, single view. HISTORY: Shortness of air. COMPARISON: 04/23/2019 FINDINGS: A frontal view of the chest is obtained. There is left upper lobe bullous emphysema with superimposed bilateral lower lobe predominant increased interstitial opacity due to chronic interstitial change or interstitial infiltrate. No pleural effusion or pneumothorax is seen. There is a stable cardiac silhouette. IMPRESSION: 1. Left upper lobe bullous emphysema. No convincing pneumothorax is seen. 2. Bilateral lower lobe interstitial infiltrate or chronic interstitial changes. Electronically signed by: Unique Sepulveda MD (04/26/2019 4:44 PM) [facility] [place] DICTATED and SIGNED BY: UNIQUE SEPULVEDA MD DATE: 04/26/19 9393 Course & Med Decision Making Course & Med Decision Making Pertinent Labs and Imaging studies reviewed. (See chart for details) This is a 58-year-old male patient presenting to the ED today complaining of shortness of breath. Patient has history of COPD, well-known to this ED. Patient's labs are negative for any acute findings, EKG is negative, chest x-ray does not show any acute findings. O2 sats have remained at 98% on room oxygen which he uses chronically Informed patient he will be discharged to home, he states he would like a prescription for antibiotics before he leaves. Informed him there is no indication for repeat but he continues to insist. He was given a dose of azith romycin in the ED and discharged with 4-day supply for azithromycin. Encouraged him to f/u with PCP next week Todd Disclaimer Todd Disclaimer This electronic medical record was generated, in whole or in part, using a voice recognition dictation system. Departure Departure Impression: Primary Impression: Acute exacerbation of chronic obstructive pulmonary disease (COPD) Disposition: 01 HOME, SELF-CARE Condition: STABLE Referrals: UNKNOWN PCP NAME (PCP) follow up with your doctor next week Patient Instructions: Chronic Obstructive Pulmonary Disease Exacerbation Scripts Azithromycin (AZITHROMYCIN TABLET) 250 Mg Tablet 250 MG PO DAILY for ANTI-BIOTIC, #4 TAB 0 Refills Prov: SD JON APRN 04/26/19 SD JON APRN Apr 26, 2019 16:01
[2019-04-26 16:08] LABS: BASO % 0 % (0-3); EOS % 0 % (0-3); HEMOGLOBIN 11.7 g/dL (13.0-17.5); LYMPH # 0.3 x10^3/uL (1.0-4.8); LYMPH % 3 % (24-48); MEAN CORPUSCULAR HEMOGLOBIN 30 pg (25-35); MEAN CORPUSCULAR HGB CONC 33 g/dL (31-37); MEAN CORPUSCULAR VOLUME 89 fL (79-100); MONO # 0.5 x10^3/uL (0.0-1.1); MONO % 5 % (0-9); NEUT # 9.3 x10^3/uL (1.8-7.7); NEUT % 92 % (31-73); PLATELET COUNT 194 x10^3/uL (140-400); RED BLOOD COUNT 3.94 x10^6/uL (4.30-5.70); RED CELL DISTRIBUTION WIDTH 15.5 % (11.5-14.5); WHITE BLOOD COUNT 10.2 x10^3/uL (4.0-11.0)
[2019-04-26 16:13] LABS: CALCIUM 9.7 mg/dL (8.5-10.1); GFR 92.5; POTASSIUM 3.5 mmol/L (3.5-5.1)
[2019-04-26] MEDS ORDERED: methylPREDNISolone SOD SUCC PF 125 MG/2 ML VIAL. IM ONE (16:15)
[2019-04-26 16:17] LABS: ALBUMIN 2.7 g/dL (3.4-5.0); ALBUMIN/GLOBULIN RATIO 0.8 (1.0-1.7); TOTAL BILIRUBIN 0.3 mg/dL (0.2-1.0); TOTAL PROTEIN 6.2 g/dL (6.4-8.2)
[2019-04-26 16:19] LABS: PROTHROMBIN TIME PATIENT 12.3 SEC (11.7-14.0)
--- NOTE | 2019-04-26 16:47 | RAD ---
EXAM: Chest, single view. HISTORY: Shortness of air. COMPARISON: 04/23/2019 FINDINGS: A frontal view of the chest is obtained. There is left upper lobe bullous emphysema with superimposed bilateral lower lobe predominant increased interstitial opacity due to chronic interstitial change or interstitial infiltrate. No pleural effusion or pneumothorax is seen. There is a stable cardiac silhouette. IMPRESSION: 1. Left upper lobe bullous emphysema. No convincing pneumothorax is seen. 2. Bilateral lower lobe interstitial infiltrate or chronic interstitial changes. Electronically signed by: Unique Sepulveda MD (04/26/2019 4:44 PM) [facility] [place]
[2019-04-26 16:49] LABS: % BANDS 3 % (0-9); % LYMPHS 2 % (24-48); % MONOS 2 % (0-10); % SEGS 93 % (35-66); OVALOCYTES FEW; PLT ESTIMATE ADEQUATE (ADEQUATE); TEAR DROP CELLS OCC
[2019-04-26 17:32] VITALS: BP 117/91
[2019-04-26] MEDS ORDERED: AZIT250T6 PO (17:37)
[2019-04-26] MEDS ORDERED: AZITHROMYCIN 250 MG TABLET. PO ONE (17:45)
--- NOTE | 2019-04-26 21:44 | EKG ---
[facility] [address] [place] [address] Test Date: 2019-04-26 Test Time: 15:40:19 Pat Name: KAYLA JONES Department: Room: Gender: Client Resolution Specialist: : 1960 Requested By: SD JON Order Number: [id number] Reading MD: Measurements Intervals [place] Rate: 112 P: [place]: QRS: 26 QRSD: 82 T: 47 QT: 308 QTc: 427 Interpretive Statements ATRIAL FIB./FLUTTER WITH RAPID VENTRICULAR RESPONSE CONSIDER RIGHT VENTRICULAR HYPERTROPHY T ABNORMALITY IN ANTEROSEPTAL LEADS NON SPECIFIC ST-T ABNORMALITY (ELEVATION) NON SPECIFIC ST DEPRESSION ABNORMAL ECG No previous ECG available for comparison
== END 2019-04-26 19:50 | disposition home or self-care (01) ==
LOC: ER 15:30
DX: J44.1 Chronic obstructive pulmonary disease with (acute) exacerbation (principal); F17.200 Nicotine dependence, unspecified, uncomplicated; Z86.79 Personal history of other diseases of the circulatory system; Z88.6 Allergy status to analgesic agent
CPT/HCPCS: 36415; 71045; 80053; 82553; 84145; 85007; 85025; 85610; 85730; 93005; 94640; 96372; 99285; J2930

== ENCOUNTER 2019-04-30 17:01 | Inpatient (IN) | payer MEDICARE, MEDICAID ==
[~2019-04-30] VITALS: Ht 167.6 cm; Wt 74.5 kg
[2019-04-30] MEDS ORDERED: methylPREDNISolone SOD SUCC PF 125 MG/2 ML VIAL. IV ONE (18:00)
[2019-04-30] MEDS ORDERED: ALBUTEROL SULFATE 2.5 MG/3 ML NEBU. CONT NEB ONE (18:00)
--- NOTE | 2019-04-30 18:04 | PHYS DOC ---
Past Medical History Past Medical History: Anxiety, CHF, COPD, Other Additional Past Medical Histor: OSTEOPOROSIS, O2 DEPENDENT Past Surgical History: No Surgical History Additional Past Surgical Histo: HERNIA REPAIR Smoking Status: Current Every Day Smoker Alcohol Use: Occasionally Drug Use: Benzodiazepine Adult General Chief Complaint Chief Complaint: SHORTNESS OF BREATH HPI HPI Patient is a 58 year old male who presents with has been here on 04/15, 04/22, 04/25 for shortness of breath and cough. He states he has been using his nebulizer and albuterol at home but is not helping. He was given a Z-[place] on 04/25 of which she states he has been taking. He wears 3 L all the time every day. He is 95% on 3 L in the ED today. He is ambulatory with a steady gait and speaks in full sentences. Patient is not tripoding. Patient denies any shortness of breath, headache, dizziness, visual changes, numbness or tingling, chest pain, fever, weakness, travel, abdominal pain, diarrhea, constipation. Patient states he did vomit this morning and that is the first time he has been vomiting. Patient states when he is been coughing he coughs up clear mucus. Review of Systems Review of Systems Respiratory: cough or shortness of breath [] All other systems were reviewed and found to be within normal limits, except as documented in this note. Current Medications Current Medications Current Medications Medications (Trade) Dose Ordered Sig/Candy Start Time Stop Time Status Last Admin Dose Admin Albuterol Sulfate (Ventolin Neb Soln) 10 mg 1X ONCE 04/30/19 18:00 04/30/19 18:01 DC 04/30/19 18:12 10 MG Methylprednisolone Sodium Succinate (SOLU-Medrol 125MG VIAL) 125 mg 1X ONCE 04/30/19 18:00 04/30/19 18:01 DC 04/30/19 18:51 125 MG Allergies Allergies Allergies Coded Allergies Type Severity Reaction Last Updated Verified acetaminophen Allergy Intermediate ITCHES 03/12/19 Yes Physical Exam Physical Exam Constitutional: Well developed, well nourished, no acute distress, non-toxic appearance. [] HENT: Normocephalic, atraumatic, bilateral external ears normal, oropharynx moist, no oral exudates, nose normal. [] Eyes: PERRLA, EOMI, conjunctiva normal, no discharge. [] Neck: Normal range of motion, no tenderness, supple, no stridor. [] Cardiovascular:Heart rate regular rhythm, no murmur [] Lungs & Thorax: Bilateral breath sounds diminished to auscultation [] Abdomen: Bowel sounds normal, soft, no tenderness, no masses, no pulsatile masses. [] Skin: Warm, dry, no erythema, no rash. [] Back: No tenderness, no CVA tenderness. [] Extremities: No tenderness, no cyanosis, no clubbing, ROM intact, no edema. [] Neurologic: Alert and oriented X 3, normal motor function, normal sensory function, no focal deficits noted. [] Psychologic: Affect normal, judgement normal, mood normal. [] Current Patient Data Vital Signs Vital Signs Date Time Temp Pulse Resp B/P (MAP) Pulse Ox O2 Delivery O2 Flow Rate FiO2 04/30/19 18:17 100 Nasal Cannula 3.0 Lab Values Laboratory Tests Test 04/30/19 17:53 04/30/19 18:07 04/30/19 18:55 O2 Saturation 97 % (92-99) Arterial Blood pH 7.45 (7.35-7.45) Arterial Blood pCO2 at Patient Temp 52 mmHg (35-46) H Arterial Blood pO2 at Patient Temp 106 mmHg (65-108) Arterial Blood HCO3 35 mmol/L (21-28) H Arterial Blood Base Excess 9 mmol/L (-3-3) H Oxyhemoglobin 97.0 % Methemoglobin 0.2 % (0.0-1.9) Carbon Monoxide, Quantitative 0.2 % (0.0-1.9) FiO2 32 White Blood Count 8.8 x10^3/uL (4.0-11.0) Red Blood Count 4.09 x10^6/uL (4.30-5.70) L Hemoglobin 12.1 g/dL (13.0-17.5) L Hematocrit 36.1 % (39.0-53.0) L Mean Corpuscular Volume 88 fL (79-100) Mean Corpuscular Hemoglobin 30 pg (25-35) Mean Corpuscular Hemoglobin Concent 34 g/dL (31-37) Red Cell Distribution Width 15.4 % (11.5-14.5) H Platelet Count 221 x10^3/uL (140-400) Neutrophils (%) (Auto) 91 % (31-73) H Lymphocytes (%) (Auto) 4 % (24-48) L Monocytes (%) (Auto) 5 % (0-9) Eosinophils (%) (Auto) 0 % (0-3) Basophils (%) (Auto) 0 % (0-3) Neutrophils # (Auto) 8.0 x10^3/uL (1.8-7.7) H Lymphocytes # (Auto) 0.3 x10^3/uL (1.0-4.8) L Monocytes # (Auto) 0.4 x10^3/uL (0.0-1.1) Eosinophils # (Auto) 0.0 x10^3/uL (0.0-0.7) Basophils # (Auto) 0.0 x10^3/uL (0.0-0.2) Segmented Neutrophils % 83 % (35-66) H Lymphocytes % 9 % (24-48) L Monocytes % 7 % (0-10) Basophils % 1 % (0-3) Platelet Estimate Adequate (ADEQUATE) Sodium Level 141 mmol/L (136-145) Potassium Level 3.9 mmol/L (3.5-5.1) Chloride Level 99 mmol/L (98-107) Carbon Dioxide Level 36 mmol/L (21-32) H Anion Gap 6 (6-14) Blood Urea Nitrogen 28 mg/dL (8-26) H Creatinine 1.7 mg/dL (0.7-1.3) H Estimated GFR (Cockcroft-Gault) 50.2 BUN/Creatinine Ratio 16 (6-20) Glucose Level 106 mg/dL (70-99) H Calcium Level 9.5 mg/dL (8.5-10.1) Total Bilirubin 0.4 mg/dL (0.2-1.0) Aspartate Amino Transferase (AST) 18 U/L (15-37) Alanine Aminotransferase (ALT) 22 U/L (16-63) Alkaline Phosphatase 75 U/L (46-116) Troponin I Quantitative < 0.017 ng/mL (0.000-0.055) AA-Wym-Q-Type Natriuretic Peptide 92 pg/mL (0-124) Total Protein 6.7 g/dL (6.4-8.2) Albumin 3.1 g/dL (3.4-5.0) L Albumin/Globulin Ratio 0.9 (1.0-1.7) L Influenza Type A Antigen Negative (NEGATIVE) Influenza Type B Antigen Negative (NEGATIVE) Laboratory Tests 04/30/19 18:07 Laboratory Tests 04/30/19 18:07 EKG EKG Irregular Rhythm and no STEMI Interpretation Time: [address] Manning Radiology/Procedures Radiology/Procedures [] Impressions: [facility] [address] [place] [address] IMAGING REPORT Signed PATIENT: KAYLA JONES ACCOUNT: [id number] : 1960 LOCATION: ER AGE: 58 SEX: M EXAM STATUS: REG ER ORD. PHYSICIAN: MAURA SEGURA APRN REASON: soa labs 6:00pm PROCEDURE: PORTABLE CHEST 1V Exam: Chest one view INDICATION: 04/26/2019 TECHNIQUE: Frontal view of the chest Comparisons: 04/26/2019 FINDINGS: The cardiomediastinal silhouette and pulmonary vessels are within normal limits. Emphysematous change in the lungs. No focal consolidation. No pleural effusion. IMPRESSION: No acute cardiopulmonary process. Electronically signed by: Yang Montano MD (04/30/2019 6:32 PM) [id number] DICTATED and SIGNED BY: YANG MONTANO MD DATE: 04/30/191831 Course & Med Decision Making Course & Med Decision Making Pertinent Labs and Imaging studies reviewed. (See chart for details) Afebrile in the ED. Speaks in full clear sentences. Ambulatory with a steady gait. Alert and oriented. Skin pink warm and dry. No extremity edema. Lungs are diminished in upper lobes and lower lobes. Patient has history of COPD, diabetes, CKD, A. fib, high cholesterol, NSVT, pneumonia, CHF. Patient is given Solu-Medrol and hour long breathing treatment in the ED. P atient states this morning he has vomited twice. Upon reexamination patients lung remain diminished. Patient states he is not feeling better. Patient is in no respiratory distress. Patient kidney function is slight bumped from what it was 4 days ago. Patient has not vomited since he has been here. I have spoken to Dr Mccormick for admission. [] Dragon Disclaimer Dragon Disclaimer This electronic medical record was generated, in whole or in part, using a voice recognition dictation system. Departure Departure Impression: Primary Impression: Acute exacerbation of chronic obstructive pulmonary disease (COPD) Disposition: 09 ADMITTED INPATIENT Admitting Physician: ALINE Condition: STABLE Referrals: UNKNOWN PCP NAME (PCP) MAURA SEGURA APRN Apr 30, 2019 18:04
[2019-04-30 18:18] LABS: BASO % 0 % (0-3); EOS % 0 % (0-3); HEMATOCRIT 36.1 % (39.0-53.0); HEMOGLOBIN 12.1 g/dL (13.0-17.5); LYMPH # 0.3 x10^3/uL (1.0-4.8); LYMPH % 4 % (24-48); MEAN CORPUSCULAR HEMOGLOBIN 30 pg (25-35); MEAN CORPUSCULAR HGB CONC 34 g/dL (31-37); MEAN CORPUSCULAR VOLUME 88 fL (79-100); MONO # 0.4 x10^3/uL (0.0-1.1); MONO % 5 % (0-9); NEUT % 91 % (31-73); PLATELET COUNT 221 x10^3/uL (140-400); RED BLOOD COUNT 4.09 x10^6/uL (4.30-5.70); RED CELL DISTRIBUTION WIDTH 15.4 % (11.5-14.5); WHITE BLOOD COUNT 8.8 x10^3/uL (4.0-11.0)
[2019-04-30 18:24] LABS: CALCIUM 9.5 mg/dL (8.5-10.1); CREATININE 1.7 mg/dL (0.7-1.3); GFR 50.2; POTASSIUM 3.9 mmol/L (3.5-5.1)
[2019-04-30 18:25] LABS: BASE EXCESS COOX 9 mmol/L (-3-3); HCO3 COOX 35 mmol/L (21-28); METHEMOGLOBIN 0.2 % (0.0-1.9); PCO2 COOX 52 mmHg (35-46); PO2 COOX 106 mmHg (65-108); SAT O2 COOX 97 % (92-99)
[2019-04-30 18:30] LABS: ALBUMIN 3.1 g/dL (3.4-5.0); ALBUMIN/GLOBULIN RATIO 0.9 (1.0-1.7); TOTAL BILIRUBIN 0.4 mg/dL (0.2-1.0); TOTAL PROTEIN 6.7 g/dL (6.4-8.2)
--- NOTE | 2019-04-30 18:35 | RAD ---
Exam: Chest one view INDICATION: 04/26/2019 TECHNIQUE: Frontal view of the chest Comparisons: 04/26/2019 FINDINGS: The cardiomediastinal silhouette and pulmonary vessels are within normal limits. Emphysematous change in the lungs. No focal consolidation. No pleural effusion. IMPRESSION: No acute cardiopulmonary process. Electronically signed by: Yang Rosa MD (04/30/2019 6:32 PM) [id number]
[2019-04-30 19:10] LABS: % BASOS 1 % (0-3); % LYMPHS 9 % (24-48); % MONOS 7 % (0-10); % SEGS 83 % (35-66)
[2019-04-30 19:13] LABS: PLT ESTIMATE ADEQUATE (ADEQUATE)
[2019-04-30 19:23] LABS: INFLUENZA A PATIENT NEGATIVE (NEGATIVE); INFLUENZA B PATIENT NEGATIVE (NEGATIVE)
[2019-04-30] MEDS ORDERED: ONDANSETRON PF 4 MG/2 ML VIAL. IV PRN (19:45)
[2019-04-30] MEDS ORDERED: IPRATRPIUM/ALBUTEROL 0.5/2.5MG 3 ML NEBU. NEB SCH (20:00)
[2019-04-30] MEDS: fentaNYL PF VIAL 100 MCG/2 ML VIAL IV PRN (21:53)
[2019-04-30 23:00] VITALS: BP 108/68
[2019-04-30] MEDS ORDERED: MAG HYDROX/ALUMINUM HYD/SIMETH 30 ML ORAL.SUSP PO PRN (23:30)
[2019-04-30] MEDS ORDERED: guaiFENesin ORAL 200 MG/10 ML LIQUID. PO PRN (23:30)
[2019-04-30] MEDS ORDERED: DEXTROSE 50% 25 GM / 50ML DISP.SYRIN. IV PRN (23:30)
[2019-04-30] MEDS ORDERED: IV DEXTROSE 5% 250 ML BAG. IV PRN (23:30)
[2019-04-30] MEDS ORDERED: SODIUM CHLORIDE 0.65% NASAL SPRAY 45ML BOTTLE. NS PRN (23:30)
[2019-05-01] MEDS: HYDROcodone/APAP 10/325 1 TAB TABLET PO PRN ×4 (00:43→23:42)
[2019-05-01] MEDS: cefTRIAXone IV Push 1 GM VIAL. IVP SCH ×2 (00:43→23:42)
[2019-05-01 03:00] VITALS: BP 120/64
[2019-05-01] MEDS: fentaNYL PF VIAL 100 MCG/2 ML VIAL IV PRN ×2 (05:12→14:43)
[2019-05-01] MEDS: LORazepam 1 MG TABLET PO SCH ×2 (05:12→16:59)
[2019-05-01] MEDS: methylPREDNISolone SOD SUCC PF 125 MG/2 ML VIAL. IV SCH ×3 (05:12→20:56)
--- NOTE | 2019-05-01 05:13 | EKG ---
[facility] [address] [place] [address] Test Date: 2019-04-30 Test Time: 17:58:06 Pat Name: KAYLA JONES Department: Room: Gender: Bucket Chucker: : 1960 Requested By: MAURA SEGURA Order Number: [id number] Reading MD: Measurements Intervals [place] Rate: 95 P: [place]: QRS: 8 QRSD: 84 T: 52 QT: 338 QTc: 428 Interpretive Statements IRREGULAR RHYTHM, NO P-WAVE FOUND NO SPECIFIC ECG ABNORMALITIES RI6.01 No previous ECG available for comparison
[2019-05-01] MEDS: ALBUTEROL SULFATE 2.5 MG/3 ML NEBU. NEB PRN (05:34)
[2019-05-01 07:00] VITALS: BP 122/77
[2019-05-01] MEDS: IPRATRPIUM/ALBUTEROL 0.5/2.5MG 3 ML NEBU. NEB SCH ×5 (08:37→20:00)
[2019-05-01] MEDS: LIDOCAINE (700MG/PATCH) PATCH. TP SCH (09:00)
[2019-05-01] MEDS ORDERED: LORazepam 1 MG TABLET PO SCH (09:00)
--- NOTE | 2019-05-01 09:34 | PDOC ---
PULMONARY PROGRESS NOTES Vitals Vital Signs Date Time Temp Pulse Resp B/P (MAP) Pulse Ox O2 Delivery O2 Flow Rate FiO2 05/01/19 08:37 99 3.0 05/01/19 07:00 98.5 65 14 122/77 (92) Nasal Cannula 98.5 General: Alert Lungs: Clear, Other Cardiovascular: S1, S2 Abdomen: Soft, Non-tender Extremities: No Edema Labs Laboratory Tests Test 04/30/19 17:53 04/30/19 18:07 04/30/19 18:55 05/01/19 08:27 O2 Saturation 97 % (92-99) Arterial Blood pH 7.45 (7.35-7.45) Arterial Blood pCO2 at Patient Temp 52 mmHg (35-46) Arterial Blood pO2 at Patient Temp 106 mmHg (65-108) Arterial Blood HCO3 35 mmol/L (21-28) Arterial Blood Base Excess 9 mmol/L (-3-3) Oxyhemoglobin 97.0 % Methemoglobin 0.2 % (0.0-1.9) Carbon Monoxide, Quantitative 0.2 % (0.0-1.9) FiO2 32 White Blood Count 8.8 x10^3/uL (4.0-11.0) Red Blood Count 4.09 x10^6/uL (4.30-5.70) Hemoglobin 12.1 g/dL (13.0-17.5) Hematocrit 36.1 % (39.0-53.0) Mean Corpuscular Volume 88 fL (79-100) Mean Corpuscular Hemoglobin 30 pg (25-35) Mean Corpuscular Hemoglobin Concent 34 g/dL (31-37) Red Cell Distribution Width 15.4 % (11.5-14.5) Platelet Count 221 x10^3/uL (140-400) Neutrophils (%) (Auto) 91 % (31-73) Lymphocytes (%) (Auto) 4 % (24-48) Monocytes (%) (Auto) 5 % (0-9) Eosinophils (%) (Auto) 0 % (0-3) Basophils (%) (Auto) 0 % (0-3) Neutrophils # (Auto) 8.0 x10^3/uL (1.8-7.7) Lymphocytes # (Auto) 0.3 x10^3/uL (1.0-4.8) Monocytes # (Auto) 0.4 x10^3/uL (0.0-1.1) Eosinophils # (Auto) 0.0 x10^3/uL (0.0-0.7) Basophils # (Auto) 0.0 x10^3/uL (0.0-0.2) Segmented Neutrophils % 83 % (35-66) Lymphocytes % 9 % (24-48) Monocytes % 7 % (0-10) Basophils % 1 % (0-3) Platelet Estimate Adequate (ADEQUATE) Sodium Level 141 mmol/L (136-145) Potassium Level 3.9 mmol/L (3.5-5.1) Chloride Level 99 mmol/L (98-107) Carbon Dioxide Level 36 mmol/L (21-32) Anion Gap 6 (6-14) Blood Urea Nitrogen 28 mg/dL (8-26) Creatinine 1.7 mg/dL (0.7-1.3) Estimated GFR (Cockcroft-Gault) 50.2 BUN/Creatinine Ratio 16 (6-20) Glucose Level 106 mg/dL (70-99) Calcium Level 9.5 mg/dL (8.5-10.1) Total Bilirubin 0.4 mg/dL (0.2-1.0) Aspartate Amino Transf (AST/SGOT) 18 U/L (15-37) Alanine Aminotransferase (ALT/SGPT) 22 U/L (16-63) Alkaline Phosphatase 75 U/L (46-116) Troponin I Quantitative < 0.017 ng/mL (0.000-0.055) RK-Yrf-X-Type Natriuretic Peptide 92 pg/mL (0-124) Total Protein 6.7 g/dL (6.4-8.2) Albumin 3.1 g/dL (3.4-5.0) Albumin/Globulin Ratio 0.9 (1.0-1.7) Influenza Type A Antigen Negative (NEGATIVE) Influenza Type B Antigen Negative (NEGATIVE) Glucose (Fingerstick) 177 mg/dL (70-99) Laboratory Tests Test 04/30/19 17:53 04/30/19 18:07 04/30/19 18:55 05/01/19 08:27 O2 Saturation 97 % (92-99) Arterial Blood pH 7.45 (7.35-7.45) Arterial Blood pCO2 at Patient Temp 52 mmHg (35-46) Arterial Blood pO2 at Patient Temp 106 mmHg (65-108) Arterial Blood HCO3 35 mmol/L (21-28) Arterial Blood Base Excess 9 mmol/L (-3-3) Oxyhemoglobin 97.0 % Methemoglobin 0.2 % (0.0-1.9) Carbon Monoxide, Quantitative 0.2 % (0.0-1.9) FiO2 32 White Blood Count 8.8 x10^3/uL (4.0-11.0) Red Blood Count 4.09 x10^6/uL (4.30-5.70) Hemoglobin 12.1 g/dL (13.0-17.5) Hematocrit 36.1 % (39.0-53.0) Mean Corpuscular Volume 88 fL (79-100) Mean Corpuscular Hemoglobin 30 pg (25-35) Mean Corpuscular Hemoglobin Concent 34 g/dL (31-37) Red Cell Distribution Width 15.4 % (11.5-14.5) Platelet Count 221 x10^3/uL (140-400) Neutrophils (%) (Auto) 91 % (31-73) Lymphocytes (%) (Auto) 4 % (24-48) Monocytes (%) (Auto) 5 % (0-9) Eosinophils (%) (Auto) 0 % (0-3) Basophils (%) (Auto) 0 % (0-3) Neutrophils # (Auto) 8.0 x10^3/uL (1.8-7.7) Lymphocytes # (Auto) 0.3 x10^3/uL (1.0-4.8) Monocytes # (Auto) 0.4 x10^3/uL (0.0-1.1) Eosinophils # (Auto) 0.0 x10^3/uL (0.0-0.7) Basophils # (Auto) 0.0 x10^3/uL (0.0-0.2) Segmented Neutrophils % 83 % (35-66) Lymphocytes % 9 % (24-48) Monocytes % 7 % (0-10) Basophils % 1 % (0-3) Platelet Estimate Adequate (ADEQUATE) Sodium Level 141 mmol/L (136-145) Potassium Level 3.9 mmol/L (3.5-5.1) Chloride Level 99 mmol/L (98-107) Carbon Dioxide Level 36 mmol/L (21-32) Anion Gap 6 (6-14) Blood Urea Nitrogen 28 mg/dL (8-26) Creatinine 1.7 mg/dL (0.7-1.3) Estimated GFR (Cockcroft-Gault) 50.2 BUN/Creatinine Ratio 16 (6-20) Glucose Level 106 mg/dL (70-99) Calcium Level 9.5 mg/dL (8.5-10.1) Total Bilirubin 0.4 mg/dL (0.2-1.0) Aspartate Amino Transf (AST/SGOT) 18 U/L (15-37) Alanine Aminotransferase (ALT/SGPT) 22 U/L (16-63) Alkaline Phosphatase 75 U/L (46-116) Troponin I Quantitative < 0.017 ng/mL (0.000-0.055) DO-Ehb-L-Type Natriuretic Peptide 92 pg/mL (0-124) Total Protein 6.7 g/dL (6.4-8.2) Albumin 3.1 g/dL (3.4-5.0) Albumin/Globulin Ratio 0.9 (1.0-1.7) Influenza Type A Antigen Negative (NEGATIVE) Influenza Type B Antigen Negative (NEGATIVE) Glucose (Fingerstick) 177 mg/dL (70-99) Medications Active Scripts Medications Dose Route/Sig Max Daily Dose Days Date Category Dose Instructions Trazodone Hcl 50 Mg Tablet 50 Mg PO QHS 30 03/14/19 Rx Proair Hfa Inhaler (Albuterol Sulfate) 8.5 Gm Hfa.aer.ad 2 Puff IH PRN Q4-6HRS PRN 21 01/17/19 Rx Lasix (Furosemide) 40 Mg Tablet 1 Tab PO DAILY 01/09/19 Reported Feosol (Ferrous Sulfate) 325 Mg Tablet 1 Tab PO DAILY 01/09/19 Reported Mag-Al Plus Xs Suspension (Mag Hydrox/Al Hydrox/Simeth) 30 Ml Oral.susp 30 Ml PO PRN DAILY PRN 12/31/18 Rx Deep Sea (Sodium Chloride) 44 Ml [place] 1 Angel NS PRN Q1HR PRN 12/31/18 Rx Hydrocodone-Apap 10-325 (Hydrocodone Bit/Acetaminophen) 1 Tab Tablet 1 Tab PO PRN Q6HRS PRN 12/22/18 Rx Ativan (Lorazepam) 1 Mg Tablet 1 Mg PO BID 12/20/18 Reported Culturelle (Lactobacillus Rhamnosus Gg) 1 Each Cap.sprink 1 Cap PO BID 30 11/11/18 Rx Colace (Docusate Sodium) 100 Mg Capsule 100 Mg PO DAILY 30 11/11/18 Rx Fluticasone Propionate Nasal [place] (Fluticasone Propionate) 16 Gm [place].susp 2 [place] NS DAILY 30 11/11/18 Rx Miralax (Polyethylene Glycol 3350) 119 Gm Powder 17 Gm PO BID 11/03/18 Rx Duoneb 0.5-3(2.5) Mg/3 Ml (Albuterol/Ipratropium) 3 Ml Ampul.neb 3 Ml NEB QID 10/28/18 Rx Tessalon Perle (Benzonatate) 100 Mg Capsule 1 Cap PO TID 10/28/18 Rx Montelukast Sodium Tablet (Montelukast Sodium) 10 Mg Tablet 10 Mg PO QHS 10/28/18 Rx Lidocaine PATCH (Lidocaine) 1 Each Adh..patch 1 Each TP DAILY 30 09/11/18 Rx REMOVE AFTER 12 HOURS Metformin Hcl 500 Mg Tablet 500 Mg PO DAILYWBKFT 09/09/18 Reported Aspirin Ec (Aspirin) 81 Mg Tablet.dr 81 Mg PO DAILYWBKFT 30 08/28/18 Rx Guaifenesin 100 Mg/5 Ml Liquid 200 Mg PO PRN Q4HRS PRN 30 05/30/18 Rx Vitamin D3 (Cholecalciferol (Vitamin D3)) 5,000 Unit Tablet 5,000 Unit PO DAILY 03/15/18 Reported Reglan (Metoclopramide Hcl) 10 Mg Tablet 0.5 Tab PO QID 30 02/14/18 Rx Potassium Chloride (Potassium Chloride) 20 Meq Tablet.er 20 Meq PO DAILY 01/13/18 Reported Protonix (Pantoprazole Sodium) 20 Mg Tablet.dr 2 Tab PO DAILY 11/18/17 Reported Atorvastatin Calcium 10 Mg Tablet 10 Mg PO HS 08/21/17 Reported Symbicort 160-4.5 Mcg Inhaler (Budesonide/Formoterol Fumarate) 10.2 Gm Hfa.aer.ad 2 Puff IH BID 09/21/15 Reported Impression . full note dictated thanks see orders aecopd a/c resp faliure pt needs inpt failed out pt SCOTT COOK MD May 01, 2019 09:33
[2019-05-01] MEDS: FLUTICASONE 50MCG/NASAL SPRAY 16GM BOTTLE. NS SCH (09:35)
[2019-05-01] MEDS: metFORMIN 500 MG TABLET PO SCH (09:36)
[2019-05-01] MEDS: POLYETHYLENE GLYCOL 3350 17 GM PACKET. PO SCH ×2 (09:36→20:53)
[2019-05-01] MEDS: ASPIRIN ENTERIC COATED 81 MG TABLET.DR. PO SCH (09:36)
[2019-05-01] MEDS: PANTOPRAZOLE 40 MG TABLET.DR. PO SCH (09:37)
[2019-05-01] MEDS: POTASSIUM CHLORIDE 20 MEQ TABLET.ER. PO SCH (09:37)
[2019-05-01] MEDS: DOCUSATE SODIUM 100 MG CAPSULE. PO SCH (09:37)
[2019-05-01] MEDS: METOCLOPRAMIDE 10 MG TABLET. PO SCH ×4 (09:37→20:52)
[2019-05-01] MEDS: FUROSEMIDE 40 MG TABLET. PO SCH (09:37)
[2019-05-01] MEDS: CHOLECALCIFEROL (VITAMIN D3) 5,000 UNIT CAPSULE PO SCH (09:38)
[2019-05-01] MEDS: FERROUS SULFATE 325 MG TABLET. PO SCH (09:38)
[2019-05-01] MEDS: LACTOBACILLUS RHAMNOSUS GG 1 CAPSULE. PO SCH ×2 (09:38→20:52)
[2019-05-01] MEDS: BENZONATATE 100 MG CAPSULE. PO SCH ×3 (09:38→20:52)
[2019-05-01] MEDS: INSULIN LISPRO 300 UNITS/3 ML VIAL. SQ SCH ×3 (09:50→17:00)
--- NOTE | 2019-05-01 10:24 | PDOC1 ---
History and Physical Date of Admission Date of Admission DATE: 05/01/19 TIME: 10:22 Identification/Chief Complaint Chief Complaint seen in er with jorge l, vomiting 58 year old male who presents with has been here on 04/15, 04/22, 04/25 for shortness of breath and cough.// nebulizer and albuterol at home but is not helping. He was given a Z-[place] on 04/25 of which she states he has been taking. ambulatory with a steady gait and speaks in full sentences. notes shortness of breath, no headache, dizziness, visual changes, numbness or tingling, chest pain, fever, weakness, travel, abdominal pain, diarrhea, constipation. he did vomit 04/29 and that is the first time he has been vomiting. coughing he coughs up clear mucus. Past Medical History Past Medical History Past Medical History Past Medical History: Anxiety, CHF, COPD, Other Additional Past Medical Histor: OSTEOPOROSIS, O2 DEPENDENT Past Surgical History: No Surgical History Additional Past Surgical Histo: HERNIA REPAIR Smoking Status: Current Every Day Smoker Alcohol Use: Occasionally Drug Use: Benzodiazepine fhx copd Cardiovascular: CHF, HTN, Hyperlipidemia, Other Pulmonary: Asthma, COPD, Pneumonia, Other CENTRAL NERVOUS SYSTEM: Other GI: GERD Heme/Onc: No pertinent hx Hepatobiliary: No pertinent hx Psych: Anxiety Musculoskeletal: low back pain, Osteoarthritis, Weakness Rheumatologic: No pertinent hx Infectious disease: No pertinent hx Renal/: Chronic renal insuff Endocrine: Diabetes Past Surgical History Past Surgical History: Hernia Repair Family History Family History: Coronary Artery Disease, Hypertension Social History Smoke: Quit ALCOHOL: none Drugs: None Current Problem List Problem List Problems Medical Problems: (1) Acute exacerbation of chronic obstructive pulmonary disease (COPD) Status: Acute Current Medications Current Medications Current Medications Albuterol Sulfate (Ventolin Neb Soln) 10 mg 1X ONCE CONT NEB Last administered on 04/30/19at 18:12; Start 04/30/19 at 18:00; Stop 04/30/19 at 18:01; Status DC Methylprednisolone Sodium Succinate (SOLU-Medrol 125MG VIAL) 125 mg 1X ONCE IV Last administered on 04/30/19at 18:51; Start 04/30/19 at 18:00; Stop 04/30/19 at 18:01; Status DC Ondansetron HCl (Zofran) 4 mg PRN Q8HRS PRN IV NAUSEA/VOMITING; Start 04/30/19 at 19:45; Stop 05/01/19 at 19:44 Fentanyl Citrate (Fentanyl 2ml Vial) 50 mcg PRN Q1HR PRN IV PAIN Last administered on 05/01/19at 05:12; Start 04/30/19 at 19:45; Stop 05/01/19 at 19:44 Albuterol/ Ipratropium (Duoneb) 3 ml RTQID NEB Last administered on 04/30/19at 20:00; Start 04/30/19 at 20:00; Stop 04/30/19 at 23:47; Status DC Insulin Human Lispro (HumaLOG) 0-5 UNITS TIDWMEALS SQ Last administered on 05/01/19at 09:50; Start 05/01/19 at 08:00 Dextrose (Dextrose 50%-Water Syringe) 12.5 gm PRN Q15MIN PRN IV SEE COMMENTS; Start 04/30/19 at 23:30 Dextrose (Iv Dextrose 5%) 250 ml PRN Q15MIN PRN IV SEE COMMENTS; Start 04/30/19 at 23:30 Methylprednisolone Sodium Succinate (SOLU-Medrol 125MG VIAL) 62.5 mg Q8HRS IV Last administered on 05/01/19at 05:12; Start 05/01/19 at 06:00 Ceftriaxone Sodium (Rocephin) 1 gm Q24H IVP Last administered on 05/01/19at 00:43; Start 04/30/19 at 23:30 Aspirin (Ecotrin) 81 mg DAILYWBKFT PO Last administered on 05/01/19at 09:36; Start 05/01/19 at 08:00 Atorvastatin Calcium (Lipitor) 10 mg HS PO ; Start 05/01/19 at 21:00 Benzonatate (Tessalon Perle) 100 mg TID PO Last administered on 05/01/19at 09:38; Start 05/01/19 at 09:00 Docusate Sodium (Colace) 100 mg DAILY PO Last administered on 05/01/19at 09:37; Start 05/01/19 at 09:00 Ferrous Sulfate (Feosol) 325 mg DAILY PO Last administered on 05/01/19at 09:38; Start 05/01/19 at 09:00 Fluticasone Propionate (Flonase) 2 spray DAILY NS Last administered on 05/01/19 09:35; Start 05/01/19 at 09:00 Furosemide (Lasix) 40 mg DAILY PO Last administered on 05/01/19 09:37; Start 05/01/19 at 09:00 Guaifenesin (Robitussin) 200 mg PRN Q4HRS PRN PO COUGH; Start 04/30/19 at 23:30 Acetaminophen/ Hydrocodone Bitart (Lortab 10/325) 1 tab PRN Q6HRS PRN PO PAIN Last administered on 05/01/19 09:36; Start 04/30/19 at 23:30 Albuterol/ Ipratropium (Duoneb) 3 ml RTQID NEB Last administered on 05/01/19 08:37; Start 05/01/19 at 08:00 Lactobacillus Rhamnosus (Culturelle) 1 cap BID PO Last administered on 05/01/19 09:38; Start 05/01/19 at 09:00 Lidocaine (Lidoderm) 1 patch DAILY TP ; Start 05/01/19 at 09:00 Lorazepam (Ativan) 1 mg BID PO ; Start 05/01/19 at 09:00; Stop 05/01/19 at 05:01; Status DC Al Hydroxide/Mg Hydroxide (Mylanta Plus Xs) 30 ml PRN DAILY PRN PO HEARTBURN / GAS; Start 04/30/19 at 23:30 Metformin HCl (Glucophage) 500 mg DAILYWBKFT PO Last administered on 05/01/19 09:36; Start 05/01/19 at 08:00 Metoclopramide HCl (Reglan) 5 mg QID PO Last administered on 05/01/19 09:37; Start 05/01/19 at 09:00 Montelukast Sodium (Singulair) 10 mg QHS PO ; Start 05/01/19 at 21:00 Polyethylene Glycol (miraLAX PACKET) 17 gm BID PO Last administered on 05/01/19 09:36; Start 05/01/19 at 09:00 Potassium Chloride (Klor-Con) 20 meq DAILYWBKFT PO Last administered on 05/01/19 09:37; Start 05/01/19 at 08:00 Sodium Chloride (Saline Mist Nasal) 1 angel PRN Q1HR PRN NS NASAL CONGESTION Last administered on 3/19/20at 09:35; Start 04/30/19 at 23:30 Trazodone HCl (Desyrel) 50 mg QHS PO ; Start 05/01/19 at 21:00 Vitamin D (Vitamin D3) 5,000 unit DAILY PO Last administered on 05/01/19at 09:38; Start 05/01/19 at 09:00 Pantoprazole Sodium (Protonix) 40 mg DAILYAC PO Last administered on 05/01/19at 09:37; Start 05/01/19 at 07:30 Miscellaneous (Lidoderm Patch Removal) 1 ea QHS MC ; Start 05/01/19 at 21:00 Lorazepam (Ativan) 1 mg Q12H PO Last administered on 05/01/19at 05:12; Start 05/01/19 at 05:00 Albuterol Sulfate (Ventolin Neb Soln) 2.5 mg PRN Q4HRS PRN NEB SHORTNESS OF BREATH Last administered on 05/01/19at 05:34; Start 05/01/19 at 05:15 Active Scripts Active Trazodone Hcl 50 Mg Tablet 50 Mg PO QHS 30 Days Proair Hfa Inhaler (Albuterol Sulfate) 8.5 Gm Hfa.aer.ad 2 Puff IH PRN Q4-6HRS PRN 21 Days Mag-Al Plus Xs Suspension (Mag Hydrox/Al Hydrox/Simeth) 30 Ml Oral.susp 30 Ml PO PRN DAILY PRN 10 Days [place] (Sodium Chloride) 44 Ml [place] 1 Angel NS PRN Q1HR PRN 10 Days Hydrocodone-Apap 10-325 (Hydrocodone Bit/Acetaminophen) 1 Tab Tablet 1 Tab PO PRN Q6HRS PRN Culturelle (Lactobacillus Rhamnosus Gg) 1 Each Cap.sprink 1 Cap PO BID 30 Days Colace (Docusate Sodium) 100 Mg Capsule 100 Mg PO DAILY 30 Days Fluticasone Propionate Nasal [place] (Fluticasone Propionate) 16 Gm [place].susp 2 [place] NS DAILY 30 Days Miralax (Polyethylene Glycol 3350) 119 Gm Powder 17 Gm PO BID Duoneb 0.5-3(2.5) Mg/3 Ml (Albuterol/Ipratropium) 3 Ml Ampul.neb 3 Ml NEB QID Tessalon Perle (Benzonatate) 100 Mg Capsule 1 Cap PO TID Montelukast Sodium Tablet (Montelukast Sodium) 10 Mg Tablet 10 Mg PO QHS Lidocaine PATCH (Lidocaine) 1 Each Adh..patch 1 Each TP DAILY 30 Days REMOVE AFTER 12 HOURS Aspirin Ec (Aspirin) 81 Mg Tablet.dr 81 Mg PO DAILYWBKFT 30 Days Guaifenesin 100 Mg/5 Ml Liquid 200 Mg PO PRN Q4HRS PRN 30 Days Reglan (Metoclopramide Hcl) 10 Mg Tablet 0.5 Tab PO QID 30 Days Reported Lasix (Furosemide) 40 Mg Tablet 1 Tab PO DAILY 30 Days Feosol (Ferrous Sulfate) 325 Mg Tablet 1 Tab PO DAILY 30 Days Ativan (Lorazepam) 1 Mg Tablet 1 Mg PO BID Metformin Hcl 500 Mg Tablet 500 Mg PO DAILYWBKFT Vitamin D3 (Cholecalciferol (Vitamin D3)) 5,000 Unit Tablet 5,000 Unit PO DAILY Potassium Chloride (Potassium Chloride) 20 Meq Tablet.er 20 Meq PO DAILY Protonix (Pantoprazole Sodium) 20 Mg Tablet.dr 2 Tab PO DAILY Atorvastatin Calcium 10 Mg Tablet 10 Mg PO HS Symbicort 160-4.5 Mcg Inhaler (Budesonide/Formoterol Fumarate) 10.2 Gm Hfa.aer.ad 2 Puff IH BID Allergies Allergies: Coded Allergies: acetaminophen (Verified Allergy, Intermediate, ITCHES, 03/12/19) ROS Review of System Review of Systems Review of Systems Respiratory: cough or shortness of breath [] 14 pt systems were reviewed and found to be within normal limits, except as documented PSYCHOLOGICAL ROS: YES: Depression Eyes: No Blurry vision, No Decreased vision, No Double vision, No Dry eyes, No Excessive tearing, No Eye Pain, No Itchy Eyes, No Loss of vision, No Photophobia, No Scotomata, No Uses contacts, No Uses glasses, No Other ALLERGY AND IMMUNOLOGY: No: Hives, Insect Bite Sensitivity, Itchy/Watery Eyes, Nasal Congestion, Post Nasal Drip, Seasonal Allergies, Other Hematological and Lymphatic: No: Bleeding Problems, Blood Clots, Blood Transfusions, Brusing, Night Sweats, Pallor, Swollen Lymph Nodes, Other Respiratory: YES: Cough, Shortness of breath, SOB with excertion Gastrointestinal: No Nausea, No Vomiting, No Abdominal Pain, No Diarrhea, No Constipation, No Melena, No Hematochezia, No Other Musculoskeletal: Yes Gait Disturbance, Yes Joint Stiffness, Yes Muscular Weakness Neurological: Yes Gait Disturbance Skin: No Dry Skin, No Eczema, No Hair Changes, No Lumps, No Mole Changes, No Mottling, No Nail Changes, No Pruritus, No Rash, No Skin Lesion Changes, No Ot her, No Acne Physical Exam Physical Exam Physical Exam Physical Exam Constitutional: Well developed, well nourished, mild acute distress, non-toxic appearance. [] HENT: Normocephalic, atraumatic, bilateral external ears normal, oropharynx moist, no oral exudates, nose normal. [] Eyes: PERRLA, EOMI, conjunctiva normal, no discharge. [] Neck: Normal range of motion, no tenderness, supple, no stridor. [] Cardiovascular:Heart rate regular rhythm, no murmur [] Lungs & Thorax: Bilateral breath sounds diminished to auscultation [] Abdomen: Bowel sounds normal, soft, no tenderness, no masses, no pulsatile masses. [] Skin: Warm, dry, no erythema, no rash. [] Back: No tenderness, no CVA tenderness. [] Extremities: No tenderness, no cyanosis, no clubbing, ROM intact, no edema. [] Neurologic: Alert and oriented X 3, normal motor function, normal sensory function, no focal deficits noted. [] Psychologic: Affect normal, judgment normal, mood normal. [] General: Alert, Oriented X3, Cooperative HEENT: EOMI, Mucous membr. moist/pink Abdomen: Normal bowel sounds, Soft Rectal Exam: not examined Extremities: No cyanosis Neuro: Normal speech, Cranial nerves 3-12 NL Psych/Mental Status: Mental status NL, Mood NL Vitals Vitals Vital Signs Date Time Temp Pulse Resp B/P (MAP) Pulse Ox O2 Delivery O2 Flow Rate FiO2 05/01/19 09:36 17 Nasal Cannula 3.0 05/01/19 08:37 99 05/01/19 07:00 98.5 65 122/77 (92) 98.5 Labs Labs Laboratory Tests Test 04/30/19 17:53 04/30/19 18:07 04/30/19 18:55 05/01/19 08:27 O2 Saturation 97 % (92-99) Arterial Blood pH 7.45 (7.35-7.45) Arterial Blood pCO2 at Patient Temp 52 mmHg (35-46) Arterial Blood pO2 at Patient Temp 106 mmHg (65-108) Arterial Blood HCO3 35 mmol/L (21-28) Arterial Blood Base Excess 9 mmol/L (-3-3) Oxyhemoglobin 97.0 % Methemoglobin 0.2 % (0.0-1.9) Carbon Monoxide, Quantitative 0.2 % (0.0-1.9) FiO2 32 White Blood Count 8.8 x10^3/uL (4.0-11.0) Red Blood Count 4.09 x10^6/uL (4.30-5.70) Hemoglobin 12.1 g/dL (13.0-17.5) Hematocrit 36.1 % (39.0-53.0) Mean Corpuscular Volume 88 fL (79-100) Mean Corpuscular Hemoglobin 30 pg (25-35) Mean Corpuscular Hemoglobin Concent 34 g/dL (31-37) Red Cell Distribution Width 15.4 % (11.5-14.5) Platelet Count 221 x10^3/uL (140-400) Neutrophils (%) (Auto) 91 % (31-73) Lymphocytes (%) (Auto) 4 % (24-48) Monocytes (%) (Auto) 5 % (0-9) Eosinophils (%) (Auto) 0 % (0-3) Basophils (%) (Auto) 0 % (0-3) Neutrophils # (Auto) 8.0 x10^3/uL (1.8-7.7) Lymphocytes # (Auto) 0.3 x10^3/uL (1.0-4.8) Monocytes # (Auto) 0.4 x10^3/uL (0.0-1.1) Eosinophils # (Auto) 0.0 x10^3/uL (0.0-0.7) Basophils # (Auto) 0.0 x10^3/uL (0.0-0.2) Segmented Neutrophils % 83 % (35-66) Lymphocytes % 9 % (24-48) Monocytes % 7 % (0-10) Basophils % 1 % (0-3) Platelet Estimate Adequate (ADEQUATE) Sodium Level 141 mmol/L (136-145) Potassium Level 3.9 mmol/L (3.5-5.1) Chloride Level 99 mmol/L (98-107) Carbon Dioxide Level 36 mmol/L (21-32) Anion Gap 6 (6-14) Blood Urea Nitrogen 28 mg/dL (8-26) Creatinine 1.7 mg/dL (0.7-1.3) Estimated GFR (Cockcroft-Gault) 50.2 BUN/Creatinine Ratio 16 (6-20) Glucose Level 106 mg/dL (70-99) Calcium Level 9.5 mg/dL (8.5-10.1) Total Bilirubin 0.4 mg/dL (0.2-1.0) Aspartate Amino Transf (AST/SGOT) 18 U/L (15-37) Alanine Aminotransferase (ALT/SGPT) 22 U/L (16-63) Alkaline Phosphatase 75 U/L (46-116) Troponin I Quantitative < 0.017 ng/mL (0.000-0.055) II-Ffs-C-Type Natriuretic Peptide 92 pg/mL (0-124) Total Protein 6.7 g/dL (6.4-8.2) Albumin 3.1 g/dL (3.4-5.0) Albumin/Globulin Ratio 0.9 (1.0-1.7) Influenza Type A Antigen Negative (NEGATIVE) Influenza Type B Antigen Negative (NEGATIVE) Glucose (Fingerstick) 177 mg/dL (70-99) Laboratory Tests Test 04/30/19 17:53 04/30/19 18:07 04/30/19 18:55 05/01/19 08:27 O2 Saturation 97 % (92-99) Arterial Blood pH 7.45 (7.35-7.45) Arterial Blood pCO2 at Patient Temp 52 mmHg (35-46) Arterial Blood pO2 at Patient Temp 106 mmHg (65-108) Arterial Blood HCO3 35 mmol/L (21-28) Arterial Blood Base Excess 9 mmol/L (-3-3) Oxyhemoglobin 97.0 % Methemoglobin 0.2 % (0.0-1.9) Carbon Monoxide, Quantitative 0.2 % (0.0-1.9) FiO2 32 White Blood Count 8.8 x10^3/uL (4.0-11.0) Red Blood Count 4.09 x10^6/uL (4.30-5.70) Hemoglobin 12.1 g/dL (13.0-17.5) Hematocrit 36.1 % (39.0-53.0) Mean Corpuscular Volume 88 fL (79-100) Mean Corpuscular Hemoglobin 30 pg (25-35) Mean Corpuscular Hemoglobin Concent 34 g/dL (31-37) Red Cell Distribution Width 15.4 % (11.5-14.5) Platelet Count 221 x10^3/uL (140-400) Neutrophils (%) (Auto) 91 % (31-73) Lymphocytes (%) (Auto) 4 % (24-48) Monocytes (%) (Auto) 5 % (0-9) Eosinophils (%) (Auto) 0 % (0-3) Basophils (%) (Auto) 0 % (0-3) Neutrophils # (Auto) 8.0 x10^3/uL (1.8-7.7) Lymphocytes # (Auto) 0.3 x10^3/uL (1.0-4.8) Monocytes # (Auto) 0.4 x10^3/uL (0.0-1.1) Eosinophils # (Auto) 0.0 x10^3/uL (0.0-0.7) Basophils # (Auto) 0.0 x10^3/uL (0.0-0.2) Segmented Neutrophils % 83 % (35-66) Lymphocytes % 9 % (24-48) Monocytes % 7 % (0-10) Basophils % 1 % (0-3) Platelet Estimate Adequate (ADEQUATE) Sodium Level 141 mmol/L (136-145) Potassium Level 3.9 mmol/L (3.5-5.1) Chloride Level 99 mmol/L (98-107) Carbon Dioxide Level 36 mmol/L (21-32) Anion Gap 6 (6-14) Blood Urea Nitrogen 28 mg/dL (8-26) Creatinine 1.7 mg/dL (0.7-1.3) Estimated GFR (Cockcroft-Gault) 50.2 BUN/Creatinine Ratio 16 (6-20) Glucose Level 106 mg/dL (70-99) Calcium Level 9.5 mg/dL (8.5-10.1) Total Bilirubin 0.4 mg/dL (0.2-1.0) Aspartate Amino Transf (AST/SGOT) 18 U/L (15-37) Alanine Aminotransferase (ALT/SGPT) 22 U/L (16-63) Alkaline Phosphatase 75 U/L (46-116) Troponin I Quantitative < 0.017 ng/mL (0.000-0.055) WJ-Eip-P-Type Natriuretic Peptide 92 pg/mL (0-124) Total Protein 6.7 g/dL (6.4-8.2) Albumin 3.1 g/dL (3.4-5.0) Albumin/Globulin Ratio 0.9 (1.0-1.7) Influenza Type A Antigen Negative (NEGATIVE) Influenza Type B Antigen Negative (NEGATIVE) Glucose (Fingerstick) 177 mg/dL (70-99) VTE Prophylaxis Ordered VTE Prophylaxis Devices: Yes VTE Pharmacological Prophylaxi: Yes Assessment/Plan Assessment/Plan impression 1. Acute on chronic HYPOXIC respiratory failure secondary to acute exacerbation of chronic obstructive pulmonary disease and acute bronchitis. 2. Abnormal chest x-ray. 3. Acute exacerbation of chronic obstructive pulmonary disease. 4. Acute bronchitis. 5. END STAGE LUNG DISEASE 6. Very severe chronic obstructive pulmonary disease., endstage 7. Ex-smoker. 8. back pain 9. old compression fracture in the lower thoracic spine. Plan . 1. Titrate FiO2 to keep O2 saturation 92%. 2. Bronchodilator. 3. Inhaled corticosteroid. 4. steroid taper 5. following PULM 6. Lovenox for deep vein thrombosis prophylaxis. 7. Protonix for stress ulcer prophylaxis. 8. The patient is being evaluated for lung transplant at [facility] 9. Continue not smoking. 10. Add BIPAP qhs 11. pain control 12. ua 13. miralax 74 min pt exam, chart review, > 50% of time spent with exam, chart review, pt care coordination TOMAS BAIG MD May 01, 2019 10:24
[2019-05-01] MEDS ORDERED: 0.9 % SODIUM CHLORIDE 10 ML DISP.SYRIN. IV PRN (10:45)
[2019-05-01] MEDS ORDERED: cloNIDine HCL 0.1 MG TABLET PO PRN (10:45)
[2019-05-01] MEDS ORDERED: DOCUSATE SODIUM 100 MG CAPSULE. PO PRN (10:45)
[2019-05-01] MEDS ORDERED: ACETAMINOPHEN 325 MG TABLET. PO PRN (10:45)
[2019-05-01] MEDS ORDERED: ONDANSETRON PF 4 MG/2 ML VIAL. IV PRN (10:45)
[2019-05-01] MEDS ORDERED: MAG HYDROX/ALUMINUM HYD/SIMETH 30 ML ORAL.SUSP PO PRN (10:45)
[2019-05-01 11:00] VITALS: BP 123/73
[2019-05-01] MEDS: ENOXAPARIN 40 MG/0.4 ML SYRINGE. SQ SCH (11:00)
--- NOTE | 2019-05-01 13:13 | PDOC2 ---
CONSULT Date of Consult Date of Consult DATE: 05/01/19 TIME: 13:07 Reason for Consult Reason for Consult: WILNER Referring Physician Referring Physician: JOVANNI Identification/Chief Complaint Chief Complaint SOB, N/V FOR 2 DAYS Source Source: Chart review, Patient History of Present Illness Reason for Visit: THIS IS A 58 YR OLD WITH SOB. ALSO HAD 2 DAYS OF N/V WHICH IS NOW BETTER. HAS HX OF COPD. HAD STARTED Z PACK BUT NOT ANY BETTER. NOW ON SUPPLEMENTAL O2. NO CKD HX. NO NEPHROTOXINS NOTED. NO HX EXCEPT SOME FREQUENCY AND OCC DECREASE IN STREAM. NO DEFINITIVE DX OF BPH BEEN GIVE. HEMODYNAMICALLY STABLE Past Medical History Cardiovascular: CHF, HTN, Hyperlipidemia, Other Pulmonary: Asthma, COPD, Pneumonia, Other CENTRAL NERVOUS SYSTEM: Other GI: GERD Heme/Onc: No pertinent hx Hepatobiliary: No pertinent hx Psych: Anxiety Musculoskeletal: low back pain, Osteoarthritis, Weakness Rheumatologic: No pertinent hx Infectious disease: No pertinent hx Renal/: No pertinent hx Endocrine: Diabetes Past Surgical History Past Surgical History: Hernia Repair Family History Family History: Coronary Artery Disease, Hypertension Social History Quit ALCOHOL: none Drugs: None Lives: with Family Current Problem List Problem List Problems Medical Problems: (1) Acute exacerbation of chronic obstructive pulmonary disease (COPD) Status: Acute Current Medications Current Medications Current Medications Albuterol Sulfate (Ventolin Neb Soln) 10 mg 1X ONCE CONT NEB Last administered on 04/30/19at 18:12; Start 04/30/19 at 18:00; Stop 04/30/19 at 18:01; Status DC Methylprednisolone Sodium Succinate (SOLU-Medrol 125MG VIAL) 125 mg 1X ONCE IV Last administered on 04/30/19at 18:51; Start 04/30/19 at 18:00; Stop 04/30/19 at 18:01; Status DC Ondansetron HCl (Zofran) 4 mg PRN Q8HRS PRN IV NAUSEA/VOMITING; Start 04/30/19 at 19:45; Stop 05/01/19 at 19:44 Fentanyl Citrate (Fentanyl 2ml Vial) 50 mcg PRN Q1HR PRN IV PAIN Last administered on 05/01/19at 05:12; Start 04/30/19 at 19:45; Stop 05/01/19 at 19:44 Albuterol/ Ipratropium (Duoneb) 3 ml RTQID NEB Last administered on 04/30/19at 20:00; Start 04/30/19 at 20:00; Stop 04/30/19 at 23:47; Status DC Insulin Human Lispro (HumaLOG) 0-5 UNITS TIDWMEALS SQ Last administered on 05/01/19at 09:50; Start 05/01/19 at 08:00 Dextrose (Dextrose 50%-Water Syringe) 12.5 gm PRN Q15MIN PRN IV SEE COMMENTS; Start 04/30/19 at 23:30 Dextrose (Iv Dextrose 5%) 250 ml PRN Q15MIN PRN IV SEE COMMENTS; Start 04/30/19 at 23:30 Methylprednisolone Sodium Succinate (SOLU-Medrol 125MG VIAL) 62.5 mg Q8HRS IV Last administered on 05/01/19at 05:12; Start 05/01/19 at 06:00 Ceftriaxone Sodium (Rocephin) 1 gm Q24H IVP Last administered on 05/01/19at 00:43; Start 04/30/19 at 23:30 Aspirin (Ecotrin) 81 mg DAILYWBKFT PO Last administered on 05/01/19at 09:36; Start 05/01/19 at 08:00 Atorvastatin Calcium (Lipitor) 10 mg HS PO ; Start 05/01/19 at 21:00 Benzonatate (Tessalon Perle) 100 mg TID PO Last administered on 05/01/19at 09:38; Start 05/01/19 at 09:00 Docusate Sodium (Colace) 100 mg DAILY PO Last administered on 05/01/19at 09:37; Start 05/01/19 at 09:00 Ferrous Sulfate (Feosol) 325 mg DAILY PO Last administered on 05/01/19at 09:38; Start 05/01/19 at 09:00 Fluticasone Propionate (Flonase) 2 spray DAILY NS Last administered on 05/01/19at 09:35; Start 05/01/19 at 09:00 Furosemide (Lasix) 40 mg DAILY PO Last administered on 05/01/19at 09:37; Start 05/01/19 at 09:00 Guaifenesin (Robitussin) 200 mg PRN Q4HRS PRN PO COUGH; Start 04/30/19 at 23:30 Acetaminophen/ Hydrocodone Bitart (Lortab 10/325) 1 tab PRN Q6HRS PRN PO PAIN Last administered on 05/01/19 09:36; Start 04/30/19 at 23:30 Albuterol/ Ipratropium (Duoneb) 3 ml RTQID NEB Last administered on 05/01/19 08:37; Start 05/01/19 at 08:00 Lactobacillus Rhamnosus (Culturelle) 1 cap BID PO Last administered on 05/01/19 09:38; Start 05/01/19 at 09:00 Lidocaine (Lidoderm) 1 patch DAILY TP ; Start 05/01/19 at 09:00 Lorazepam (Ativan) 1 mg BID PO ; Start 05/01/19 at 09:00; Stop 05/01/19 at 05:01; Status DC Al Hydroxide/Mg Hydroxide (Mylanta Plus Xs) 30 ml PRN DAILY PRN PO HEARTBURN / GAS; Start 04/30/19 at 23:30 Metformin HCl (Glucophage) 500 mg DAILYWBKFT PO Last administered on 05/01/19at 09:36; Start 05/01/19 at 08:00 Metoclopramide HCl (Reglan) 5 mg QID PO Last administered on 05/01/19at 09:37; Start 05/01/19 at 09:00 Montelukast Sodium (Singulair) 10 mg QHS PO ; Start 05/01/19 at 21:00 Polyethylene Glycol (miraLAX PACKET) 17 gm BID PO Last administered on 05/01/19at 09:36; Start 05/01/19 at 09:00 Potassium Chloride (Klor-Con) 20 meq DAILYWBKFT PO Last administered on 05/01/19at 09:37; Start 05/01/19 at 08:00 Sodium Chloride (Saline Mist Nasal) 1 angel PRN Q1HR PRN NS NASAL CONGESTION Last administered on 05/01/19 09:35; Start 04/30/19 at 23:30 Trazodone HCl (Desyrel) 50 mg QHS PO ; Start 05/01/19 at 21:00 Vitamin D (Vitamin D3) 5,000 unit DAILY PO Last administered on 05/01/19 09:38; Start 05/01/19 at 09:00 Pantoprazole Sodium (Protonix) 40 mg DAILYAC PO Last administered on 3/19/20at 09:37; Start 05/01/19 at 07:30 Miscellaneous (Lidoderm Patch Removal) 1 ea QHS MC ; Start 05/01/19 at 21:00 Lorazepam (Ativan) 1 mg Q12H PO Last administered on 05/01/19at 05:12; Start 05/01/19 at 05:00 Albuterol Sulfate (Ventolin Neb Soln) 2.5 mg PRN Q4HRS PRN NEB SHORTNESS OF BREATH Last administered on 05/01/19at 05:34; Start 05/01/19 at 05:15 Sodium Chloride (Normal Saline Flush) 3 ml QSHIFT PRN IV AFTER MEDS AND BLOOD DRAWS; Start 05/01/19 at 10:45 Ondansetron HCl (Zofran) 4 mg PRN Q4HRS PRN IV NAUSEA/VOMITING; Start 05/01/19 at 10:45 Acetaminophen (Tylenol) 650 mg PRN Q4HRS PRN PO TEMP OVER 100.4F OR MILD PAIN; Start 05/01/19 at 10:45 Al Hydroxide/Mg Hydroxide (Mylanta Plus Xs) 30 ml PRN DAILY PRN PO HEARTBURN / GAS; Start 05/01/19 at 10:45 Clonidine HCl (Catapres) 0.1 mg PRN Q6HRS PRN PO SBP>160 OR DBP>90; Start 05/01/19 at 10:45 Docusate Sodium (Colace) 100 mg PRN BID PRN PO CONSTIPATION; Start 05/01/19 at 10:45 Albuterol/ Ipratropium (Duoneb) 3 ml Q4HRS NEB Last administered on 05/01/19at 12:02; Start 05/01/19 at 11:00 Guaifenesin (Robitussin) 200 mg PRN Q4HRS PRN PO COUGH; Start 05/01/19 at 10:45 Enoxaparin Sodium (Lovenox 40mg Syringe) 40 mg Q24H SQ ; Start 05/01/19 at 11:00 Active Scripts Active Trazodone Hcl 50 Mg Tablet 50 Mg PO QHS 30 Days Proair Hfa Inhaler (Albuterol Sulfate) 8.5 Gm Hfa.aer.ad 2 Puff IH PRN Q4-6HRS PRN 21 Days Mag-Al Plus Xs Suspension (Mag Hydrox/Al Hydrox/Simeth) 30 Ml Oral.susp 30 Ml PO PRN DAILY PRN 10 Days [place] (Sodium Chloride) 44 Ml [place] 1 Angel NS PRN Q1HR PRN 10 Days Hydrocodone-Apap 10-325 (Hydrocodone Bit/Acetaminophen) 1 Tab Tablet 1 Tab PO PRN Q6HRS PRN Culturelle (Lactobacillus Rhamnosus Gg) 1 Each Cap.sprink 1 Cap PO BID 30 Days Colace (Docusate Sodium) 100 Mg Capsule 100 Mg PO DAILY 30 Days Fluticasone Propionate Nasal [place] (Fluticasone Propionate) 16 Gm [place].susp 2 [place] NS DAILY 30 Days Miralax (Polyethylene Glycol 3350) 119 Gm Powder 17 Gm PO BID Duoneb 0.5-3(2.5) Mg/3 Ml (Albuterol/Ipratropium) 3 Ml Amp[place].neb 3 Ml NEB QID Tessalon Perle (Benzonatate) 100 Mg Capsule 1 Cap PO TID Montelukast Sodium Tablet (Montelukast Sodium) 10 Mg Tablet 10 Mg PO QHS Lidocaine PATCH (Lidocaine) 1 Each Adh..patch 1 Each TP DAILY 30 Days REMOVE AFTER 12 HOURS Aspirin Ec (Aspirin) 81 Mg Tablet.dr 81 Mg PO DAILYWBKFT 30 Days Guaifenesin 100 Mg/5 Ml Liquid 200 Mg PO PRN Q4HRS PRN 30 Days Reglan (Metoclopramide Hcl) 10 Mg Tablet 0.5 Tab PO QID 30 Days Reported Lasix (Furosemide) 40 Mg Tablet 1 Tab PO DAILY 30 Days Feosol (Ferrous Sulfate) 325 Mg Tablet 1 Tab PO DAILY 30 Days Ativan (Lorazepam) 1 Mg Tablet 1 Mg PO BID Metformin Hcl 500 Mg Tablet 500 Mg PO DAILYWBKFT Vitamin D3 (Cholecalciferol (Vitamin D3)) 5,000 Unit Tablet 5,000 Unit PO DAILY Potassium Chloride (Potassium Chloride) 20 Meq Tablet.er 20 Meq PO DAILY Protonix (Pantoprazole Sodium) 20 Mg Tablet.dr 2 Tab PO DAILY Atorvastatin Calcium 10 Mg Tablet 10 Mg PO HS Symbicort 160-4.5 Mcg Inhaler (Budesonide/Formoterol Fumarate) 10.2 Gm Hfa.aer.ad 2 Puff IH BID Allergies Allergies: Coded Allergies: acetaminophen (Verified Allergy, Intermediate, ITCHES, 03/12/19) ROS General: YES: Fatigue, Malaise PSYCHOLOGICAL ROS: YES: Anxiety Eyes: Yes Decreased vision ALLERGY AND IMMUNOLOGY: YES: Seasonal Allergies Respiratory: YES: Cough Gastrointestinal: Yes Nausea, Yes Vomiting Genitourinary: YES Frequency Musculoskeletal: Yes Muscular Weakness Neurological: Yes Weakness Skin: Yes Dry Skin Physical Exam General: Alert, Oriented X3, Cooperative, No acute distress HEENT: Atraumatic, PERRLA Lungs: Clear to auscultation Heart: Regular rate, Normal S1, Normal S2 Abdomen: Normal bowel sounds Extremities: No clubbing Skin: No breakdown Neuro: Normal speech, Sensation intact Psych/Mental Status: Mental status NL, Mood NL MUSCULOSKELETAL: No joint tenderness, No deformity, No swelling Vitals VITALS Vital Signs Date Time Temp Pulse Resp B/P (MAP) Pulse Ox O2 Delivery O2 Flow Rate FiO2 05/01/19 12:03 3.0 05/01/19 11:00 98.3 75 12 123/73 (90) 100 Nasal Cannula 98.3 Labs Labs Laboratory Tests Test 04/30/19 17:53 04/30/19 18:07 04/30/19 18:55 05/01/19 08:27 O2 Saturation 97 % (92-99) Arterial Blood pH 7.45 (7.35-7.45) Arterial Blood pCO2 at Patient Temp 52 mmHg (35-46) Arterial Blood pO2 at Patient Temp 106 mmHg (65-108) Arterial Blood HCO3 35 mmol/L (21-28) Arterial Blood Base Excess 9 mmol/L (-3-3) Oxyhemoglobin 97.0 % Methemoglobin 0.2 % (0.0-1.9) Carbon Monoxide, Quantitative 0.2 % (0.0-1.9) FiO2 32 White Blood Count 8.8 x10^3/uL (4.0-11.0) Red Blood Count 4.09 x10^6/uL (4.30-5.70) Hemoglobin 12.1 g/dL (13.0-17.5) Hematocrit 36.1 % (39.0-53.0) Mean Corpuscular Volume 88 fL (79-100) Mean Corpuscular Hemoglobin 30 pg (25-35) Mean Corpuscular Hemoglobin Concent 34 g/dL (31-37) Red Cell Distribution Width 15.4 % (11.5-14.5) Platelet Count 221 x10^3/uL (140-400) Neutrophils (%) (Auto) 91 % (31-73) Lymphocytes (%) (Auto) 4 % (24-48) Monocytes (%) (Auto) 5 % (0-9) Eosinophils (%) (Auto) 0 % (0-3) Basophils (%) (Auto) 0 % (0-3) Neutrophils # (Auto) 8.0 x10^3/uL (1.8-7.7) Lymphocytes # (Auto) 0.3 x10^3/uL (1.0-4.8) Monocytes # (Auto) 0.4 x10^3/uL (0.0-1.1) Eosinophils # (Auto) 0.0 x10^3/uL (0.0-0.7) Basophils # (Auto) 0.0 x10^3/uL (0.0-0.2) Segmented Neutrophils % 83 % (35-66) Lymphocytes % 9 % (24-48) Monocytes % 7 % (0-10) Basophils % 1 % (0-3) Platelet Estimate Adequate (ADEQUATE) Sodium Level 141 mmol/L (136-145) Potassium Level 3.9 mmol/L (3.5-5.1) Chloride Level 99 mmol/L (98-107) Carbon Dioxide Level 36 mmol/L (21-32) Anion Gap 6 (6-14) Blood Urea Nitrogen 28 mg/dL (8-26) Creatinine 1.7 mg/dL (0.7-1.3) Estimated GFR (Cockcroft-Gault) 50.2 BUN/Creatinine Ratio 16 (6-20) Glucose Level 106 mg/dL (70-99) Calcium Level 9.5 mg/dL (8.5-10.1) Total Bilirubin 0.4 mg/dL (0.2-1.0) Aspartate Amino Transf (AST/SGOT) 18 U/L (15-37) Alanine Aminotransferase (ALT/SGPT) 22 U/L (16-63) Alkaline Phosphatase 75 U/L (46-116) Troponin I Quantitative < 0.017 ng/mL (0.000-0.055) KJ-Zbr-[id number]-Type Natriuretic Peptide 92 pg/mL (0-124) Total Protein 6.7 g/dL (6.4-8.2) Albumin 3.1 g/dL (3.4-5.0) Albumin/Globulin Ratio 0.9 (1.0-1.7) Influenza Type A Antigen Negative (NEGATIVE) Influenza Type B Antigen Negative (NEGATIVE) Glucose (Fingerstick) 177 mg/dL (70-99) Test 05/01/19 10:50 05/01/19 11:32 Troponin I Quantitative < 0.017 ng/mL (0.000-0.055) Glucose (Fingerstick) 146 mg/dL (70-99) Laboratory Tests Test 04/30/19 17:53 04/30/19 18:07 04/30/19 18:55 05/01/19 08:27 O2 Saturation 97 % (92-99) Arterial Blood pH 7.45 (7.35-7.45) Arterial Blood pCO2 at Patient Temp 52 mmHg (35-46) Arterial Blood pO2 at Patient Temp 106 mmHg (65-108) Arterial Blood HCO3 35 mmol/L (21-28) Arterial Blood Base Excess 9 mmol/L (-3-3) Oxyhemoglobin 97.0 % Methemoglobin 0.2 % (0.0-1.9) Carbon Monoxide, Quantitative 0.2 % (0.0-1.9) FiO2 32 White Blood Count 8.8 x10^3/uL (4.0-11.0) Red Blood Count 4.09 x10^6/uL (4.30-5.70) Hemoglobin 12.1 g/dL (13.0-17.5) Hematocrit 36.1 % (39.0-53.0) Mean Corpuscular Volume 88 fL (79-100) Mean Corpuscular Hemoglobin 30 pg (25-35) Mean Corpuscular Hemoglobin Concent 34 g/dL (31-37) Red Cell Distribution Width 15.4 % (11.5-14.5) Platelet Count 221 x10^3/uL (140-400) Neutrophils (%) (Auto) 91 % (31-73) Lymphocytes (%) (Auto) 4 % (24-48) Monocytes (%) (Auto) 5 % (0-9) Eosinophils (%) (Auto) 0 % (0-3) Basophils (%) (Auto) 0 % (0-3) Neutrophils # (Auto) 8.0 x10^3/uL (1.8-7.7) Lymphocytes # (Auto) 0.3 x10^3/uL (1.0-4.8) Monocytes # (Auto) 0.4 x10^3/uL (0.0-1.1) Eosinophils # (Auto) 0.0 x10^3/uL (0.0-0.7) Basophils # (Auto) 0.0 x10^3/uL (0.0-0.2) Segmented Neutrophils % 83 % (35-66) Lymphocytes % 9 % (24-48) Monocytes % 7 % (0-10) Basophils % 1 % (0-3) Platelet Estimate Adequate (ADEQUATE) Sodium Level 141 mmol/L (136-145) Potassium Level 3.9 mmol/L (3.5-5.1) Chloride Level 99 mmol/L (98-107) Carbon Dioxide Level 36 mmol/L (21-32) Anion Gap 6 (6-14) Blood Urea Nitrogen 28 mg/dL (8-26) Creatinine 1.7 mg/dL (0.7-1.3) Estimated GFR (Cockcroft-Gault) 50.2 BUN/Creatinine Ratio 16 (6-20) Glucose Level 106 mg/dL (70-99) Calcium Level 9.5 mg/dL (8.5-10.1) Total Bilirubin 0.4 mg/dL (0.2-1.0) Aspartate Amino Transf (AST/SGOT) 18 U/L (15-37) Alanine Aminotransferase (ALT/SGPT) 22 U/L (16-63) Alkaline Phosphatase 75 U/L (46-116) Troponin I Quantitative < 0.017 ng/mL (0.000-0.055) HU-Dhx-X-Type Natriuretic Peptide 92 pg/mL (0-124) Total Protein 6.7 g/dL (6.4-8.2) Albumin 3.1 g/dL (3.4-5.0) Albumin/Globulin Ratio 0.9 (1.0-1.7) Influenza Type A Antigen Negative (NEGATIVE) Influenza Type B Antigen Negative (NEGATIVE) Glucose (Fingerstick) 177 mg/dL (70-99) Test 05/01/19 10:50 05/01/19 11:32 Troponin I Quantitative < 0.017 ng/mL (0.000-0.055) Glucose (Fingerstick) 146 mg/dL (70-99) Assessment/Plan Assessment/Plan IMP WILNER CR OF 1.7-NO CKD HX DEHYDRATION ACUTE HYPOXIC RESP FAILURE SEVERE COPD PROSTATISM N/V-GASTROENTERITIS DM II PLAN HYDRATION CONSIDER HOLDING METFORMIN IF CR NO BETTER BY AM HOLD LASIX AND KCL CHECK UA WILL FOLLOW MARLENE COELHO MD May 01, 2019 13:13
--- NOTE | 2019-05-01 13:41 | NUR ---
SS following for discharge planning. SS reviewed pt chart and discussed with RN. Pt is from home and is currently requiring oxygen. Pt has home oxygen through [facility]. SS will continue to follow for discharge planning.
--- NOTE | 2019-05-01 14:22 | CONS ---
DATE OF CONSULTATION: 05/01/2019 ATTENDING PHYSICIAN: Lico Mccormick MD CONSULTING PHYSICIAN: Scott Cook MD REASON FOR CONSULTATION: The patient seen in pulmonary consultation at the request of Dr. Mccormick for increasing shortness of air. HISTORY OF PRESENT ILLNESS: The patient is a 58-year-old previously known with chronic respiratory failure, end-stage COPD, severe bullous emphysema and oxygen dependent at home. He has been in the Emergency Room on 04/16/2019, 04/23/2019 and 04/26/2019 for shortness of breath. He states he has been using nebulizer more frequently. This was not helping. He failed outpatient therapy. He was given Z-DARELL on 04/26/2019. He reports wheezing, cough, mostly nonproductive. No syncope or near syncopal episode. He denies any recent travel, no sick contacts, no exposure to anyone with a [id number] virus. PAST MEDICAL HISTORY: Past medical history has been well documented previously. In previous medical records, he has chronic respiratory failure, severe bullous emphysema has been actually evaluated for bullectomy, but was not a surgical candidate. He has a history of sleep apnea syndrome, osteoporosis, prior history of pulmonary embolism. SOCIAL HISTORY: He quit tobacco in 2013. FAMILY HISTORY: Diabetes. REVIEW OF SYSTEMS: CONSTITUTIONAL: No fever or chills. EYES: No changes in visual acuity. HENT: No nasal congestion or sore throat. PULMONARY: As indicated above. CARDIOVASCULAR: No chest pain. No pressure. GASTROINTESTINAL: No nausea, vomiting, diarrhea. GENITOURINARY: No dysuria or frequency. MUSCULOSKELETAL: No localized muscle aches or joint pains. SKIN: No new skin rashes. NEUROLOGIC: No headaches, diplopia or blurred vision. MEDICATIONS: List was reviewed. ALLERGIES: ACETAMINOPHEN. PHYSICAL EXAMINATION: GENERAL: The patient was sitting at the edge of the bed. He was in severe respiratory distress. He was in a tripod position. Currently on 3 liters. HEENT: Eyes, the sclerae were nonicteric. NECK: Jugular venous distention was not elevated. No lymphadenopathy. CHEST: Full expansion. LUNGS: Poor flow with expiratory wheeze. CARDIOVASCULAR: Regular rate and rhythm with S1, S2, no S3. ABDOMEN: Soft, nontender, nondistended. EXTREMITIES: No clubbing, cyanosis or edema. NEUROLOGICAL: The patient was awake, alert, following commands. A detailed neuro exam was not performed. LABORATORY DATA: Reviewed. Serology for influenza was negative. Electrolytes were noted. BUN and creatinine elevated. Arterial blood gas; pH of 7.45, PaCO2 of 52, pO2 of 106 on 35% FiO2. IMPRESSION: 1. Acute on chronic respiratory failure, the patient failed outpatient treatment, he has been in the Emergency Room the last 4-5 days. He requires inpatient admission utilizing accessory muscles to breathe. We will continue IV antibiotics and IV steroids. Continue nebulized treatments. 2. Obstructive sleep apnea. 3. History of deep venous thrombosis and pulmonary embolism. 4. Clinical depression. 5. History of vertebral compression fractures. 6. Diabetes with peripheral neuropathy. 7. Hypertension. PLAN: As indicated above. We will continue close monitoring and make adjustments on his regimen depending on his clinical response. SCOTT COOK MD DR: MAVERICK/efrain JOB#: [id number] / [id number]
[2019-05-01] MEDS: IV NORMAL SALINE 1000ML BAG 1,000 ML IV SCH (14:40)
[2019-05-01 15:00] VITALS: BP 138/85
[2019-05-01 19:26] LABS: BILIRUBIN,URINE NEGATIVE (NEG); CLARITY,URINE CLEAR; COLOR,URINE YELLOW; NITRITE,URINE NEGATIVE (NEG); PH,URINE 5.5 (<5.0-8.0); PROTEIN,URINE NEGATIVE (NEG-TRACE)
[2019-05-01 19:31] LABS: SQUAMOUS EPITHELIAL CELL,UR FEW /LPF
[2019-05-01 19:32] LABS: BACTERIA,URINE 0 /HPF (0-FEW); RBC,URINE 0 /HPF (0-2); WBC,URINE OCC /HPF (0-4)
[2019-05-01 19:40] VITALS: BP 112/68
[2019-05-01] MEDS: ATORVASTATIN CALCIUM 10 MG TABLET. PO SCH (20:52)
[2019-05-01] MEDS: traZODone 50 MG TABLET. PO SCH (20:52)
[2019-05-01] MEDS: MONTELUKAST SODIUM 10 MG TABLET. PO SCH (20:52)
[2019-05-01] MEDS: PATCH REMOVAL. MC SCH (21:00)
[2019-05-01 23:35] VITALS: BP 132/89
[2019-05-02] MEDS: IV NORMAL SALINE 1000ML BAG 1,000 ML IV SCH ×3 (02:35→19:31)
[2019-05-02] MEDS: IPRATRPIUM/ALBUTEROL 0.5/2.5MG 3 ML NEBU. NEB SCH ×8 (03:09→23:47)
[2019-05-02 03:35] VITALS: BP 128/82
[2019-05-02] MEDS: ALBUTEROL SULFATE 2.5 MG/3 ML NEBU. NEB PRN (04:20)
[2019-05-02 06:02] LABS: ALBUMIN 2.9 g/dL (3.4-5.0); CALCIUM 8.6 mg/dL (8.5-10.1); CREATININE 1.1 mg/dL (0.7-1.3); GFR 82.9; PHOSPHORUS 3.1 mg/dL (2.6-4.7); POTASSIUM 4.3 mmol/L (3.5-5.1)
[2019-05-02 06:09] LABS: BASO % 0 % (0-3); EOS % 0 % (0-3); HEMATOCRIT 34.7 % (39.0-53.0); HEMOGLOBIN 11.5 g/dL (13.0-17.5); LYMPH # 0.3 x10^3/uL (1.0-4.8); LYMPH % 3 % (24-48); MEAN CORPUSCULAR HEMOGLOBIN 30 pg (25-35); MEAN CORPUSCULAR HGB CONC 33 g/dL (31-37); MEAN CORPUSCULAR VOLUME 89 fL (79-100); MONO # 0.4 x10^3/uL (0.0-1.1); MONO % 3 % (0-9); NEUT # 9.8 x10^3/uL (1.8-7.7); NEUT % 94 % (31-73); PLATELET COUNT 208 x10^3/uL (140-400); RED CELL DISTRIBUTION WIDTH 15.1 % (11.5-14.5); WHITE BLOOD COUNT 10.4 x10^3/uL (4.0-11.0)
[2019-05-02] MEDS: HYDROcodone/APAP 10/325 1 TAB TABLET PO PRN ×3 (06:15→19:31)
[2019-05-02] MEDS: methylPREDNISolone SOD SUCC PF 125 MG/2 ML VIAL. IV SCH ×3 (06:15→21:38)
[2019-05-02] MEDS: LORazepam 1 MG TABLET PO SCH ×2 (06:15→18:43)
[2019-05-02 07:18] VITALS: BP 140/100
[2019-05-02] MEDS: INSULIN LISPRO 300 UNITS/3 ML VIAL. SQ SCH ×3 (08:00→18:46)
--- NOTE | 2019-05-02 08:01 | PDOC ---
PROGRESS NOTES History of Present Illness History of Present Illness VTE Prophylaxis Ordered VTE Prophylaxis Devices: Yes VTE Pharmacological Prophylaxi: Yes Assessment/Plan Assessment/Plan impression 1. Acute on chronic HYPOXIC respiratory failure secondary to acute exacerbation of chronic obstructive pulmonary disease and acute bronchitis. 2. Abnormal chest x-ray. 3. Acute exacerbation of chronic obstructive pulmonary disease. 4. Acute bronchitis. 5. END STAGE LUNG DISEASE 6. Very severe chronic obstructive pulmonary disease., endstage 7. Ex-smoker. 8. back pain 9. old compression fracture in the lower thoracic spine. Plan . 1. Titrate FiO2 to keep O2 saturation 92%. 2. Bronchodilator. 3. Inhaled corticosteroid. 4. steroid taper 5. following PULM 6. Lovenox for deep vein thrombosis prophylaxis. 7. Protonix for stress ulcer prophylaxis. 8. The patient is being evaluated for lung transplant at [facility] 9. Continue not smoking. 10. CONT BIPAP qhs 11. pain control 12. ua 13. miralax 05/01 STILL COARSE, WHEEZING 38 min pt exam, chart review, > 50% of time spent with exam, chart review, pt care coordination Vitals Vitals Vital Signs Date Time Temp Pulse Resp B/P (MAP) Pulse Ox O2 Delivery O2 Flow Rate FiO2 05/02/19 07:15 17 Nasal Cannula 3.0 05/02/19 06:15 96 05/02/19 03:35 97.9 79 128/82 (97) 97.9 Physical Exam General: Alert, Oriented X3, Cooperative, No acute distress Heart: Regular rate, Normal S1, Normal S2 Lungs: Clear, Other (diminished, coarse) Abdomen: Normal bowel sounds Extremities: No clubbing Skin: No breakdown Labs LABS Laboratory Tests Test 05/01/19 08:27 05/01/19 10:50 05/01/19 11:32 05/01/19 16:30 Glucose (Fingerstick) 177 mg/dL (70-99) 146 mg/dL (70-99) 148 mg/dL (70-99) Troponin I Quantitative < 0.017 ng/mL (0.000-0.055) Test 05/01/19 17:05 05/01/19 20:57 05/02/19 05:15 Urine Collection Type Unknown Urine Color Yellow Urine Clarity Clear Urine pH 5.5 (<5.0-8.0) Urine Specific [place] 1.015 (1.000-1.030) Urine Protein Negative mg/dL (NEG-TRACE) Urine Glucose (UA) Negative mg/dL (NEG) Urine Ketones (Stick) Negative mg/dL (NEG) Urine Blood Negative (NEG) Urine Nitrite Negative (NEG) Urine Bilirubin Negative (NEG) Urine Urobilinogen Dipstick 1.0 mg/dL (0.2 mg/dL) Urine Leukocyte Esterase Negative (NEG) Urine RBC 0 /HPF (0-2) Urine WBC Occ /HPF (0-4) Urine Squamous Epithelial Cells Few /LPF Urine Bacteria 0 /HPF (0-FEW) Urine Mucus Slight /LPF Glucose (Fingerstick) 207 mg/dL (70-99) White Blood Count 10.4 x10^3/uL (4.0-11.0) Red Blood Count 3.90 x10^6/uL (4.30-5.70) Hemoglobin 11.5 g/dL (13.0-17.5) Hematocrit 34.7 % (39.0-53.0) Mean Corpuscular Volume 89 fL (79-100) Mean Corpuscular Hemoglobin 30 pg (25-35) Mean Corpuscular Hemoglobin Concent 33 g/dL (31-37) Red Cell Distribution Width 15.1 % (11.5-14.5) Platelet Count 208 x10^3/uL (140-400) Neutrophils (%) (Auto) 94 % (31-73) Lymphocytes (%) (Auto) 3 % (24-48) Monocytes (%) (Auto) 3 % (0-9) Eosinophils (%) (Auto) 0 % (0-3) Basophils (%) (Auto) 0 % (0-3) Neutrophils # (Auto) 9.8 x10^3/uL (1.8-7.7) Lymphocytes # (Auto) 0.3 x10^3/uL (1.0-4.8) Monocytes # (Auto) 0.4 x10^3/uL (0.0-1.1) Eosinophils # (Auto) 0.0 x10^3/uL (0.0-0.7) Basophils # (Auto) 0.0 x10^3/uL (0.0-0.2) Sodium Level 142 mmol/L (136-145) Potassium Level 4.3 mmol/L (3.5-5.1) Chloride Level 99 mmol/L (98-107) Carbon Dioxide Level 32 mmol/L (21-32) Anion Gap 11 (6-14) Blood Urea Nitrogen 23 mg/dL (8-26) Creatinine 1.1 mg/dL (0.7-1.3) Estimated GFR (Cockcroft-Gault) 82.9 Glucose Level 250 mg/dL (70-99) Calcium Level 8.6 mg/dL (8.5-10.1) Phosphorus Level 3.1 mg/dL (2.6-4.7) Albumin 2.9 g/dL (3.4-5.0) Assessment and Plan Assessmemt and Plan Problems Medical Problems: (1) Acute exacerbation of chronic obstructive pulmonary disease (COPD) Status: Acute Comment Review of Relevant I have reviewed the following items franki (where applicable) has been applied. Labs Laboratory Tests Test 04/30/19 17:53 04/30/19 18:07 04/30/19 18:55 05/01/19 08:27 O2 Saturation 97 % (92-99) Arterial Blood pH 7.45 (7.35-7.45) Arterial Blood pCO2 at Patient Temp 52 mmHg (35-46) Arterial Blood pO2 at Patient Temp 106 mmHg (65-108) Arterial Blood HCO3 35 mmol/L (21-28) Arterial Blood Base Excess 9 mmol/L (-3-3) Oxyhemoglobin 97.0 % Methemoglobin 0.2 % (0.0-1.9) Carbon Monoxide, Quantitative 0.2 % (0.0-1.9) FiO2 32 White Blood Count 8.8 x10^3/uL (4.0-11.0) Red Blood Count 4.09 x10^6/uL (4.30-5.70) Hemoglobin 12.1 g/dL (13.0-17.5) Hematocrit 36.1 % (39.0-53.0) Mean Corpuscular Volume 88 fL (79-100) Mean Corpuscular Hemoglobin 30 pg (25-35) Mean Corpuscular Hemoglobin Concent 34 g/dL (31-37) Red Cell Distribution Width 15.4 % (11.5-14.5) Platelet Count 221 x10^3/uL (140-400) Neutrophils (%) (Auto) 91 % (31-73) Lymphocytes (%) (Auto) 4 % (24-48) Monocytes (%) (Auto) 5 % (0-9) Eosinophils (%) (Auto) 0 % (0-3) Basophils (%) (Auto) 0 % (0-3) Neutrophils # (Auto) 8.0 x10^3/uL (1.8-7.7) Lymphocytes # (Auto) 0.3 x10^3/uL (1.0-4.8) Monocytes # (Auto) 0.4 x10^3/uL (0.0-1.1) Eosinophils # (Auto) 0.0 x10^3/uL (0.0-0.7) Basophils # (Auto) 0.0 x10^3/uL (0.0-0.2) Segmented Neutrophils % 83 % (35-66) Lymphocytes % 9 % (24-48) Monocytes % 7 % (0-10) Basophils % 1 % (0-3) Platelet Estimate Adequate (ADEQUATE) Sodium Level 141 mmol/L (136-145) Potassium Level 3.9 mmol/L (3.5-5.1) Chloride Level 99 mmol/L (98-107) Carbon Dioxide Level 36 mmol/L (21-32) Anion Gap 6 (6-14) Blood Urea Nitrogen 28 mg/dL (8-26) Creatinine 1.7 mg/dL (0.7-1.3) Estimated GFR (Cockcroft-Gault) 50.2 BUN/Creatinine Ratio 16 (6-20) Glucose Level 106 mg/dL (70-99) Calcium Level 9.5 mg/dL (8.5-10.1) Total Bilirubin 0.4 mg/dL (0.2-1.0) Aspartate Amino Transf (AST/SGOT) 18 U/L (15-37) Alanine Aminotransferase (ALT/SGPT) 22 U/L (16-63) Alkaline Phosphatase 75 U/L (46-116) Troponin I Quantitative < 0.017 ng/mL (0.000-0.055) UA-Uac-C-Type Natriuretic Peptide 92 pg/mL (0-124) Total Protein 6.7 g/dL (6.4-8.2) Albumin 3.1 g/dL (3.4-5.0) Albumin/Globulin Ratio 0.9 (1.0-1.7) Influenza Type A Antigen Negative (NEGATIVE) Influenza Type B Antigen Negative (NEGATIVE) Glucose (Fingerstick) 177 mg/dL (70-99) Test 05/01/19 10:50 05/01/19 11:32 05/01/19 16:30 05/01/19 17:05 Troponin I Quantitative < 0.017 ng/mL (0.000-0.055) Glucose (Fingerstick) 146 mg/dL (70-99) 148 mg/dL (70-99) Urine Collection Type Unknown Urine Color Yellow Urine Clarity Clear Urine pH 5.5 (<5.0-8.0) Urine Specific [place] 1.015 (1.000-1.030) Urine Protein Negative mg/dL (NEG-TRACE) Urine Glucose (UA) Negative mg/dL (NEG) Urine Ketones (Stick) Negative mg/dL (NEG) Urine Blood Negative (NEG) Urine Nitrite Negative (NEG) Urine Bilirubin Negative (NEG) Urine Urobilinogen Dipstick 1.0 mg/dL (0.2 mg/dL) Urine Leukocyte Esterase Negative (NEG) Urine RBC 0 /HPF (0-2) Urine WBC Occ /HPF (0-4) Urine Squamous Epithelial Cells Few /LPF Urine Bacteria 0 /HPF (0-FEW) Urine Mucus Slight /LPF Test 05/01/19 20:57 05/02/19 05:15 Glucose (Fingerstick) 207 mg/dL (70-99) White Blood Count 10.4 x10^3/uL (4.0-11.0) Red Blood Count 3.90 x10^6/uL (4.30-5.70) Hemoglobin 11.5 g/dL (13.0-17.5) Hematocrit 34.7 % (39.0-53.0) Mean Corpuscular Volume 89 fL (79-100) Mean Corpuscular Hemoglobin 30 pg (25-35) Mean Corpuscular Hemoglobin Concent 33 g/dL (31-37) Red Cell Distribution Width 15.1 % (11.5-14.5) Platelet Count 208 x10^3/uL (140-400) Neutrophils (%) (Auto) 94 % (31-73) Lymphocytes (%) (Auto) 3 % (24-48) Monocytes (%) (Auto) 3 % (0-9) Eosinophils (%) (Auto) 0 % (0-3) Basophils (%) (Auto) 0 % (0-3) Neutrophils # (Auto) 9.8 x10^3/uL (1.8-7.7) Lymphocytes # (Auto) 0.3 x10^3/uL (1.0-4.8) Monocytes # (Auto) 0.4 x10^3/uL (0.0-1.1) Eosinophils # (Auto) 0.0 x10^3/uL (0.0-0.7) Basophils # (Auto) 0.0 x10^3/uL (0.0-0.2) Sodium Level 142 mmol/L (136-145) Potassium Level 4.3 mmol/L (3.5-5.1) Chloride Level 99 mmol/L (98-107) Carbon Dioxide Level 32 mmol/L (21-32) Anion Gap 11 (6-14) Blood Urea Nitrogen 23 mg/dL (8-26) Creatinine 1.1 mg/dL (0.7-1.3) Estimated GFR (Cockcroft-Gault) 82.9 Glucose Level 250 mg/dL (70-99) Calcium Level 8.6 mg/dL (8.5-10.1) Phosphorus Level 3.1 mg/dL (2.6-4.7) Albumin 2.9 g/dL (3.4-5.0) Laboratory Tests Test 05/01/19 08:27 05/01/19 10:50 05/01/19 11:32 05/01/19 16:30 Glucose (Fingerstick) 177 mg/dL (70-99) 146 mg/dL (70-99) 148 mg/dL (70-99) Troponin I Quantitative < 0.017 ng/mL (0.000-0.055) Test 05/01/19 17:05 05/01/19 20:57 05/02/19 05:15 Urine Collection Type Unknown Urine Color Yellow Urine Clarity Clear Urine pH 5.5 (<5.0-8.0) Urine Specific [place] 1.015 (1.000-1.030) Urine Protein Negative mg/dL (NEG-TRACE) Urine Glucose (UA) Negative mg/dL (NEG) Urine Ketones (Stick) Negative mg/dL (NEG) Urine Blood Negative (NEG) Urine Nitrite Negative (NEG) Urine Bilirubin Negative (NEG) Urine Urobilinogen Dipstick 1.0 mg/dL (0.2 mg/dL) Urine Leukocyte Esterase Negative (NEG) Urine RBC 0 /HPF (0-2) Urine WBC Occ /HPF (0-4) Urine Squamous Epithelial Cells Few /LPF Urine Bacteria 0 /HPF (0-FEW) Urine Mucus Slight /LPF Glucose (Fingerstick) 207 mg/dL (70-99) White Blood Count 10.4 x10^3/uL (4.0-11.0) Red Blood Count 3.90 x10^6/uL (4.30-5.70) Hemoglobin 11.5 g/dL (13.0-17.5) Hematocrit 34.7 % (39.0-53.0) Mean Corpuscular Volume 89 fL (79-100) Mean Corpuscular Hemoglobin 30 pg (25-35) Mean Corpuscular Hemoglobin Concent 33 g/dL (31-37) Red Cell Distribution Width 15.1 % (11.5-14.5) Platelet Count 208 x10^3/uL (140-400) Neutrophils (%) (Auto) 94 % (31-73) Lymphocytes (%) (Auto) 3 % (24-48) Monocytes (%) (Auto) 3 % (0-9) Eosinophils (%) (Auto) 0 % (0-3) Basophils (%) (Auto) 0 % (0-3) Neutrophils # (Auto) 9.8 x10^3/uL (1.8-7.7) Lymphocytes # (Auto) 0.3 x10^3/uL (1.0-4.8) Monocytes # (Auto) 0.4 x10^3/uL (0.0-1.1) Eosinophils # (Auto) 0.0 x10^3/uL (0.0-0.7) Basophils # (Auto) 0.0 x10^3/uL (0.0-0.2) Sodium Level 142 mmol/L (136-145) Potassium Level 4.3 mmol/L (3.5-5.1) Chloride Level 99 mmol/L (98-107) Carbon Dioxide Level 32 mmol/L (21-32) Anion Gap 11 (6-14) Blood Urea Nitrogen 23 mg/dL (8-26) Creatinine 1.1 mg/dL (0.7-1.3) Estimated GFR (Cockcroft-Gault) 82.9 Glucose Level 250 mg/dL (70-99) Calcium Level 8.6 mg/dL (8.5-10.1) Phosphorus Level 3.1 mg/dL (2.6-4.7) Albumin 2.9 g/dL (3.4-5.0) Medications Current Medications Albuterol Sulfate (Ventolin Neb Soln) 10 mg 1X ONCE CONT NEB Last administered on 04/30/19at 18:12; Start 04/30/19 at 18:00; Stop 04/30/19 at 18:01; Status DC Methylprednisolone Sodium Succinate (SOLU-Medrol 125MG VIAL) 125 mg 1X ONCE IV Last administered on 04/30/19at 18:51; Start 04/30/19 at 18:00; Stop 04/30/19 at 18:01; Status DC Ondansetron HCl (Zofran) 4 mg PRN Q8HRS PRN IV NAUSEA/VOMITING; Start 04/30/19 at 19:45; Stop 05/01/19 at 19:44; Status DC Fentanyl Citrate (Fentanyl 2ml Vial) 50 mcg PRN Q1HR PRN IV PAIN Last administered on 05/01/19at 14:43; Start 04/30/19 at 19:45; Stop 05/01/19 at 19:44; Status DC Albuterol/ Ipratropium (Duoneb) 3 ml RTQID NEB Last administered on 04/30/19at 20:00; Start 04/30/19 at 20:00; Stop 04/30/19 at 23:47; Status DC Insulin Human Lispro (HumaLOG) 0-5 UNITS TIDWMEALS SQ Last administered on 05/01/19at 09:50; Start 05/01/19 at 08:00 Dextrose (Dextrose 50%-Water Syringe) 12.5 gm PRN Q15MIN PRN IV SEE COMMENTS; Start 04/30/19 at 23:30 Dextrose (Iv Dextrose 5%) 250 ml PRN Q15MIN PRN IV SEE COMMENTS; Start 04/30/19 at 23:30 Methylprednisolone Sodium Succinate (SOLU-Medrol 125MG VIAL) 62.5 mg Q8HRS IV Last administered on 05/02/19 06:15; Start 05/01/19 at 06:00 Ceftriaxone Sodium (Rocephin) 1 gm Q24H IVP Last administered on 05/01/19 23:42; Start 04/30/19 at 23:30 Aspirin (Ecotrin) 81 mg DAILYWBKFT PO Last administered on 05/01/19 09:36; Start 05/01/19 at 08:00 Atorvastatin Calcium (Lipitor) 10 mg HS PO Last administered on 05/01/19 20:52; Start 05/01/19 at 21:00 Benzonatate (Tessalon Perle) 100 mg TID PO Last administered on 05/01/19 20:52; Start 05/01/19 at 09:00 Docusate Sodium (Colace) 100 mg DAILY PO Last administered on 05/01/19 09:37; Start 05/01/19 at 09:00 Ferrous Sulfate (Feosol) 325 mg DAILY PO Last administered on 05/01/19 09:38; Start 05/01/19 at 09:00 Fluticasone Propionate (Flonase) 2 spray DAILY NS Last administered on 05/01/19 09:35; Start 05/01/19 at 09:00 Furosemide (Lasix) 40 mg DAILY PO Last administered on 05/01/19 09:37; Start 05/01/19 at 09:00 Guaifenesin (Robitussin) 200 mg PRN Q4HRS PRN PO COUGH; Start 04/30/19 at 23:30 Acetaminophen/ Hydrocodone Bitart (Lortab 10/325) 1 tab PRN Q6HRS PRN PO PAIN Last administered on 05/02/19 06:15; Start 04/30/19 at 23:30 Albuterol/ Ipratropium (Duoneb) 3 ml RTQID NEB Last administered on 05/01/19 20:00; Start 05/01/19 at 08:00 Lactobacillus Rhamnosus (Culturelle) 1 cap BID PO Last administered on 05/01/19 20:52; Start 05/01/19 at 09:00 Lidocaine (Lidoderm) 1 patch DAILY TP ; Start 05/01/19 at 09:00 Lorazepam (Ativan) 1 mg BID PO ; Start 05/01/19 at 09:00; Stop 05/01/19 at 05:01; Status DC Al Hydroxide/Mg Hydroxide (Mylanta Plus Xs) 30 ml PRN DAILY PRN PO HEARTBURN / GAS; Start 04/30/19 at 23:30 Metformin HCl (Glucophage) 500 mg DAILYWBKFT PO Last administered on 05/01/19at 09:36; Start 05/01/19 at 08:00 Metoclopramide HCl (Reglan) 5 mg QID PO Last administered on 05/01/19at 20:52; Start 05/01/19 at 09:00 Montelukast Sodium (Singulair) 10 mg QHS PO Last administered on 05/01/19 20:52; Start 05/01/19 at 21:00 Polyethylene Glycol (miraLAX PACKET) 17 gm BID PO Last administered on 04/12 11/01at 20:53; Start 05/01/19 at 09:00 Potassium Chloride (Klor-Con) 20 meq DAILYWBKFT PO Last administered on 05/01/19at 09:37; Start 05/01/19 at 08:00 Sodium Chloride (Saline Mist Nasal) 1 angel PRN Q1HR PRN NS NASAL CONGESTION Last administered on 05/01/19 09:35; Start 04/30/19 at 23:30 Trazodone HCl (Desyrel) 50 mg QHS PO Last administered on 05/01/19 20:52; Start 05/01/19 at 21:00 Vitamin D (Vitamin D3) 5,000 unit DAILY PO Last administered on 05/01/19at 09:38; Start 05/01/19 at 09:00 Pantoprazole Sodium (Protonix) 40 mg DAILYAC PO Last administered on 05/01/19at 09:37; Start 05/01/19 at 07:30 Miscellaneous (Lidoderm Patch Removal) 1 ea QHS MC ; Start 05/01/19 at 21:00 Lorazepam (Ativan) 1 mg Q12H PO Last administered on 05/02/19at 06:15; Start 05/01/19 at 05:00 Albuterol Sulfate (Ventolin Neb Soln) 2.5 mg PRN Q4HRS PRN NEB SHORTNESS OF BREATH Last administered on 05/02/19at 04:20; Start 05/01/19 at 05:15 Sodium Chloride (Normal Saline Flush) 3 ml QSHIFT PRN IV AFTER MEDS AND BLOOD DRAWS; Start 05/01/19 at 10:45 Ondansetron HCl (Zofran) 4 mg PRN Q4HRS PRN IV NAUSEA/VOMITING; Start 05/01/19 at 10:45 Acetaminophen (Tylenol) 650 mg PRN Q4HRS PRN PO TEMP OVER 100.4F OR MILD PAIN; Start 05/01/19 at 10:45 Al Hydroxide/Mg Hydroxide (Mylanta Plus Xs) 30 ml PRN DAILY PRN PO HEARTBURN / GAS; Start 05/01/19 at 10:45 Clonidine HCl (Catapres) 0.1 mg PRN Q6HRS PRN PO SBP>160 OR DBP>90; Start 05/01/19 at 10:45 Docusate Sodium (Colace) 100 mg PRN BID PRN PO CONSTIPATION; Start 05/01/19 at 10:45 Albuterol/ Ipratropium (Duoneb) 3 ml Q4HRS NEB Last administered on 05/01/19at 12:02; Start 05/01/19 at 11:00 Guaifenesin (Robitussin) 200 mg PRN Q4HRS PRN PO COUGH; Start 05/01/19 at 10:45 Enoxaparin Sodium (Lovenox 40mg Syringe) 40 mg Q24H SQ ; Start 05/01/19 at 11:00 Sodium Chloride 1,000 ml @ 75 mls/hr [id number] IV Last administered on 05/02/19at 06:16; Start 05/01/19 at 13:15 Active Scripts Active Trazodone Hcl 50 Mg Tablet 50 Mg PO QHS 30 Days Proair Hfa Inhaler (Albuterol Sulfate) 8.5 Gm Hfa.aer.ad 2 Puff IH PRN Q4-6HRS PRN 21 Days Mag-Al Plus Xs Suspension (Mag Hydrox/Al Hydrox/Simeth) 30 Ml Oral.susp 30 Ml PO PRN DAILY PRN 10 Days [place] (Sodium Chloride) 44 Ml Percival 1 Angel NS PRN Q1HR PRN 10 Days Hydrocodone-Apap 10-325 (Hydrocodone Bit/Acetaminophen) 1 Tab Tablet 1 Tab PO PRN Q6HRS PRN Culturelle (Lactobacillus Rhamnosus Gg) 1 Each Cap.sprink 1 Cap PO BID 30 Days Colace (Docusate Sodium) 100 Mg Capsule 100 Mg PO DAILY 30 Days Fluticasone Propionate Nasal Percival (Fluticasone Propionate) 16 Gm Percival.susp 2 Percival NS DAILY 30 Days Miralax (Polyethylene Glycol 3350) 119 Gm Powder 17 Gm PO BID Duoneb 0.5-3(2.5) Mg/3 Ml (Albuterol/Ipratropium) 3 Ml Ampul.neb 3 Ml NEB QID Tessalon Perle (Benzonatate) 100 Mg Capsule 1 Cap PO TID Montelukast Sodium Tablet (Montelukast Sodium) 10 Mg Tablet 10 Mg PO QHS Lidocaine PATCH (Lidocaine) 1 Each Adh..patch 1 Each TP DAILY 30 Days REMOVE AFTER 12 HOURS Aspirin Ec (Aspirin) 81 Mg Tablet.dr 81 Mg PO DAILYWBKFT 30 Days Guaifenesin 100 Mg/5 Ml Liquid 200 Mg PO PRN Q4HRS PRN 30 Days Reglan (Metoclopramide Hcl) 10 Mg Tablet 0.5 Tab PO QID 30 Days Reported Lasix (Furosemide) 40 Mg Tablet 1 Tab PO DAILY 30 Days Feosol (Ferrous Sulfate) 325 Mg Tablet 1 Tab PO DAILY 30 Days Ativan (Lorazepam) 1 Mg Tablet 1 Mg PO BID Metformin Hcl 500 Mg Tablet 500 Mg PO DAILYWBKFT Vitamin D3 (Cholecalciferol (Vitamin D3)) 5,000 Unit Tablet 5,000 Unit PO DAILY Potassium Chloride (Potassium Chloride) 20 Meq Tablet.er 20 Meq PO DAILY Protonix (Pantoprazole Sodium) 20 Mg Tablet.dr 2 Tab PO DAILY Atorvastatin Calcium 10 Mg Tablet 10 Mg PO HS Symbicort 160-4.5 Mcg Inhaler (Budesonide/Formoterol Fumarate) 10.2 Gm Hfa.aer.ad 2 Puff IH BID Vitals/I & O Vital Sign - Last 24 Hours 05/01/19 05/01/19 05/01/19 05/01/19 08:37 09:36 10:36 11:00 Temp 98.3 98.3 Pulse 75 Resp 17 17 12 B/P (MAP) 123/73 (90) Pulse Ox 99 100 O2 Delivery Nasal Cannula Nasal Cannula Nasal Cannula O2 Flow Rate 3.0 3.0 3.0 3.0 05/01/19 05/01/19 05/01/19 05/01/19 12:03 14:43 15:00 15:13 Temp 98.8 98.8 Pulse 67 Resp 18 16 18 B/P (MAP) 138/85 (102) Pulse Ox 93 O2 Delivery Nasal Cannula Nasal Cannula Nasal Cannula O2 Flow Rate 3.0 3.0 3.0 3.0 05/01/19 05/01/19 05/01/19 05/01/19 16:31 17:00 19:40 20:15 Temp 98.5 98.5 Pulse 101 Resp 18 19 B/P (MAP) 112/68 (83) Pulse Ox 3 97 O2 Delivery Nasal Cannula Nasal Cannula Nasal Cannula O2 Flow Rate 3.0 3.0 3.0 05/01/19 05/01/19 05/01/19 05/02/19 20:23 23:35 23:42 00:42 Temp 98.1 98.1 Pulse 80 Resp 18 B/P (MAP) 132/89 (103) Pulse Ox 99 99 99 O2 Delivery Nasal Cannula Nasal Cannula Nasal Cannula O2 Flow Rate 3.0 2.5 2.5 2.5 05/02/19 05/02/19 05/02/19 05/02/19 03:35 04:20 06:15 07:15 Temp 97.9 97.9 Pulse 79 Resp 18 17 B/P (MAP) 128/82 (97) Pulse Ox 96 96 O2 Delivery Nasal Cannula Nasal Cannula Nasal Cannula O2 Flow Rate 2.0 3.0 3.0 3.0 Intake and Output 05/01/19 05/01/19 05/02/19 15:00 23:00 07:00 Intake Total 500 ml 500 ml 300 ml Output Total 800 ml Balance 500 ml -300 ml 300 ml TOMAS BAIG MD May 02, 2019 08:01
[2019-05-02] MEDS: POLYETHYLENE GLYCOL 3350 17 GM PACKET. PO SCH ×2 (08:18→21:34)
[2019-05-02] MEDS: POTASSIUM CHLORIDE 20 MEQ TABLET.ER. PO SCH (08:19)
[2019-05-02] MEDS: FUROSEMIDE 40 MG TABLET. PO SCH (08:19)
[2019-05-02] MEDS: ASPIRIN ENTERIC COATED 81 MG TABLET.DR. PO SCH (08:19)
[2019-05-02] MEDS: metFORMIN 500 MG TABLET PO SCH (08:19)
[2019-05-02] MEDS: DOCUSATE SODIUM 100 MG CAPSULE. PO SCH (08:19)
[2019-05-02] MEDS: BENZONATATE 100 MG CAPSULE. PO SCH ×3 (08:19→21:34)
[2019-05-02] MEDS: LACTOBACILLUS RHAMNOSUS GG 1 CAPSULE. PO SCH ×2 (08:20→21:33)
[2019-05-02] MEDS: FERROUS SULFATE 325 MG TABLET. PO SCH (08:20)
[2019-05-02] MEDS: CHOLECALCIFEROL (VITAMIN D3) 5,000 UNIT CAPSULE PO SCH (08:20)
[2019-05-02] MEDS: PANTOPRAZOLE 40 MG TABLET.DR. PO SCH (08:20)
[2019-05-02] MEDS: METOCLOPRAMIDE 10 MG TABLET. PO SCH ×4 (08:20→21:34)
[2019-05-02] MEDS: FLUTICASONE 50MCG/NASAL SPRAY 16GM BOTTLE. NS SCH (08:21)
[2019-05-02] MEDS: LIDOCAINE (700MG/PATCH) PATCH. TP SCH (08:21)
[2019-05-02] MEDS: ENOXAPARIN 40 MG/0.4 ML SYRINGE. SQ SCH (11:00)
[2019-05-02 11:12] VITALS: BP 126/88
--- NOTE | 2019-05-02 11:51 | PDOC ---
Renal-Progress Notes Subjective Notes Notes NO NEW COMPLAINTS History of Present Illness Hx of present illness STABLE Vitals Vitals Vital Signs Date Time Temp Pulse Resp B/P (MAP) Pulse Ox O2 Delivery O2 Flow Rate FiO2 05/02/19 11:12 97.5 85 20 126/88 (101) 98 Nasal Cannula 2.0 97.5 Weight Weight [ ] I.O. Intake and Output Intake and Output 05/02/19 07:00 Intake Total 1300 ml Output Total 800 ml Balance 500 ml Intake Oral 1300 ml Output Urine Total 800 ml Labs Labs Laboratory Tests Test 05/01/19 16:30 05/01/19 17:05 05/01/19 20:57 05/02/19 05:15 Glucose (Fingerstick) 148 mg/dL (70-99) 207 mg/dL (70-99) Urine Collection Type Unknown Urine Color Yellow Urine Clarity Clear Urine pH 5.5 (<5.0-8.0) Urine Specific [place] 1.015 (1.000-1.030) Urine Protein Negative mg/dL (NEG-TRACE) Urine Glucose (UA) Negative mg/dL (NEG) Urine Ketones (Stick) Negative mg/dL (NEG) Urine Blood Negative (NEG) Urine Nitrite Negative (NEG) Urine Bilirubin Negative (NEG) Urine Urobilinogen Dipstick 1.0 mg/dL (0.2 mg/dL) Urine Leukocyte Esterase Negative (NEG) Urine RBC 0 /HPF (0-2) Urine WBC Occ /HPF (0-4) Urine Squamous Epithelial Cells Few /LPF Urine Bacteria 0 /HPF (0-FEW) Urine Mucus Slight /LPF White Blood Count 10.4 x10^3/uL (4.0-11.0) Red Blood Count 3.90 x10^6/uL (4.30-5.70) Hemoglobin 11.5 g/dL (13.0-17.5) Hematocrit 34.7 % (39.0-53.0) Mean Corpuscular Volume 89 fL (79-100) Mean Corpuscular Hemoglobin 30 pg (25-35) Mean Corpuscular Hemoglobin Concent 33 g/dL (31-37) Red Cell Distribution Width 15.1 % (11.5-14.5) Platelet Count 208 x10^3/uL (140-400) Neutrophils (%) (Auto) 94 % (31-73) Lymphocytes (%) (Auto) 3 % (24-48) Monocytes (%) (Auto) 3 % (0-9) Eosinophils (%) (Auto) 0 % (0-3) Basophils (%) (Auto) 0 % (0-3) Neutrophils # (Auto) 9.8 x10^3/uL (1.8-7.7) Lymphocytes # (Auto) 0.3 x10^3/uL (1.0-4.8) Monocytes # (Auto) 0.4 x10^3/uL (0.0-1.1) Eosinophils # (Auto) 0.0 x10^3/uL (0.0-0.7) Basophils # (Auto) 0.0 x10^3/uL (0.0-0.2) Sodium Level 142 mmol/L (136-145) Potassium Level 4.3 mmol/L (3.5-5.1) Chloride Level 99 mmol/L (98-107) Carbon Dioxide Level 32 mmol/L (21-32) Anion Gap 11 (6-14) Blood Urea Nitrogen 23 mg/dL (8-26) Creatinine 1.1 mg/dL (0.7-1.3) Estimated GFR (Cockcroft-Gault) 82.9 Glucose Level 250 mg/dL (70-99) Calcium Level 8.6 mg/dL (8.5-10.1) Phosphorus Level 3.1 mg/dL (2.6-4.7) Albumin 2.9 g/dL (3.4-5.0) Test 05/02/19 08:03 05/02/19 10:59 Glucose (Fingerstick) 127 mg/dL (70-99) 155 mg/dL (70-99) Review of Systems Constitutional: yes: alert, oriented Ears/Nose/Throat: Yes: no symptom reported Eyes: Yes: no symptom reported Pulmonary: Yes no symptom reported Cardiovascular: Yes no symptom reported Gastrointestional: Yes: no symptom reported Genitourinary: Yes: no symptom reported Musculoskeletal: Yes: no symptom reported Skin: Yes no symptom reported Psychiatric/Neurological: Yes: no symptom reported Physical Exam General Appearance: no apparent distress Skin: warm Respiratory: decreased breath sounds Heart: S1S2 Abdomen: soft, bowel sounds present Genitourinary: bladder flat Extremities: pulses present Assessment Assessment Assessment/Plan IMP WILNER - RESOLVED DEHYDRATION ACUTE HYPOXIC RESP FAILURE SEVERE COPD PROSTATISM N/V-GASTROENTERITIS DM II PLAN HYDRATION NEEDED WILL SIGN OFF MARLNEE COELHO MD May 02, 2019 11:51
[2019-05-02 15:23] VITALS: BP 136/80
--- NOTE | 2019-05-02 16:56 | PDOC ---
PULMONARY PROGRESS NOTES Subjective PT STILL WITH SEVERE SOA Vitals Vital Signs Date Time Temp Pulse Resp B/P (MAP) Pulse Ox O2 Delivery O2 Flow Rate FiO2 05/02/19 16:10 3.0 05/02/19 15:23 97.9 82 20 136/80 (98) 98 Nasal Cannula 97.9 ROS: No Nausea, No Chest Pain, No Abdominal Pain, No Increase Cough General: Alert Lungs: Clear, Other (diminished, coarse) Cardiovascular: S1, S2 Abdomen: Soft, Non-tender Extremities: No Edema Labs Laboratory Tests Test 04/30/19 17:53 04/30/19 18:07 04/30/19 18:55 05/01/19 08:27 O2 Saturation 97 % (92-99) Arterial Blood pH 7.45 (7.35-7.45) Arterial Blood pCO2 at Patient Temp 52 mmHg (35-46) Arterial Blood pO2 at Patient Temp 106 mmHg (65-108) Arterial Blood HCO3 35 mmol/L (21-28) Arterial Blood Base Excess 9 mmol/L (-3-3) Oxyhemoglobin 97.0 % Methemoglobin 0.2 % (0.0-1.9) Carbon Monoxide, Quantitative 0.2 % (0.0-1.9) FiO2 32 White Blood Count 8.8 x10^3/uL (4.0-11.0) Red Blood Count 4.09 x10^6/uL (4.30-5.70) Hemoglobin 12.1 g/dL (13.0-17.5) Hematocrit 36.1 % (39.0-53.0) Mean Corpuscular Volume 88 fL (79-100) Mean Corpuscular Hemoglobin 30 pg (25-35) Mean Corpuscular Hemoglobin Concent 34 g/dL (31-37) Red Cell Distribution Width 15.4 % (11.5-14.5) Platelet Count 221 x10^3/uL (140-400) Neutrophils (%) (Auto) 91 % (31-73) Lymphocytes (%) (Auto) 4 % (24-48) Monocytes (%) (Auto) 5 % (0-9) Eosinophils (%) (Auto) 0 % (0-3) Basophils (%) (Auto) 0 % (0-3) Neutrophils # (Auto) 8.0 x10^3/uL (1.8-7.7) Lymphocytes # (Auto) 0.3 x10^3/uL (1.0-4.8) Monocytes # (Auto) 0.4 x10^3/uL (0.0-1.1) Eosinophils # (Auto) 0.0 x10^3/uL (0.0-0.7) Basophils # (Auto) 0.0 x10^3/uL (0.0-0.2) Segmented Neutrophils % 83 % (35-66) Lymphocytes % 9 % (24-48) Monocytes % 7 % (0-10) Basophils % 1 % (0-3) Platelet Estimate Adequate (ADEQUATE) Sodium Level 141 mmol/L (136-145) Potassium Level 3.9 mmol/L (3.5-5.1) Chloride Level 99 mmol/L (98-107) Carbon Dioxide Level 36 mmol/L (21-32) Anion Gap 6 (6-14) Blood Urea Nitrogen 28 mg/dL (8-26) Creatinine 1.7 mg/dL (0.7-1.3) Estimated GFR (Cockcroft-Gault) 50.2 BUN/Creatinine Ratio 16 (6-20) Glucose Level 106 mg/dL (70-99) Calcium Level 9.5 mg/dL (8.5-10.1) Total Bilirubin 0.4 mg/dL (0.2-1.0) Aspartate Amino Transf (AST/SGOT) 18 U/L (15-37) Alanine Aminotransferase (ALT/SGPT) 22 U/L (16-63) Alkaline Phosphatase 75 U/L (46-116) Troponin I Quantitative < 0.017 ng/mL (0.000-0.055) KG-Kvt-S-Type Natriuretic Peptide 92 pg/mL (0-124) Total Protein 6.7 g/dL (6.4-8.2) Albumin 3.1 g/dL (3.4-5.0) Albumin/Globulin Ratio 0.9 (1.0-1.7) Influenza Type A Antigen Negative (NEGATIVE) Influenza Type B Antigen Negative (NEGATIVE) Glucose (Fingerstick) 177 mg/dL (70-99) Test 05/01/19 10:50 05/01/19 11:32 05/01/19 16:30 05/01/19 17:05 Troponin I Quantitative < 0.017 ng/mL (0.000-0.055) Glucose (Fingerstick) 146 mg/dL (70-99) 148 mg/dL (70-99) Urine Collection Type Unknown Urine Color Yellow Urine Clarity Clear Urine pH 5.5 (<5.0-8.0) Urine Specific [place] 1.015 (1.000-1.030) Urine Protein Negative mg/dL (NEG-TRACE) Urine Glucose (UA) Negative mg/dL (NEG) Urine Ketones (Stick) Negative mg/dL (NEG) Urine Blood Negative (NEG) Urine Nitrite Negative (NEG) Urine Bilirubin Negative (NEG) Urine Urobilinogen Dipstick 1.0 mg/dL (0.2 mg/dL) Urine Leukocyte Esterase Negative (NEG) Urine RBC 0 /HPF (0-2) Urine WBC Occ /HPF (0-4) Urine Squamous Epithelial Cells Few /LPF Urine Bacteria 0 /HPF (0-FEW) Urine Mucus Slight /LPF Test 05/01/19 20:57 05/02/19 05:15 05/02/19 08:03 05/02/19 10:59 Glucose (Fingerstick) 207 mg/dL (70-99) 127 mg/dL (70-99) 155 mg/dL (70-99) White Blood Count 10.4 x10^3/uL (4.0-11.0) Red Blood Count 3.90 x10^6/uL (4.30-5.70) Hemoglobin 11.5 g/dL (13.0-17.5) Hematocrit 34.7 % (39.0-53.0) Mean Corpuscular Volume 89 fL (79-100) Mean Corpuscular Hemoglobin 30 pg (25-35) Mean Corpuscular Hemoglobin Concent 33 g/dL (31-37) Red Cell Distribution Width 15.1 % (11.5-14.5) Platelet Count 208 x10^3/uL (140-400) Neutrophils (%) (Auto) 94 % (31-73) Lymphocytes (%) (Auto) 3 % (24-48) Monocytes (%) (Auto) 3 % (0-9) Eosinophils (%) (Auto) 0 % (0-3) Basophils (%) (Auto) 0 % (0-3) Neutrophils # (Auto) 9.8 x10^3/uL (1.8-7.7) Lymphocytes # (Auto) 0.3 x10^3/uL (1.0-4.8) Monocytes # (Auto) 0.4 x10^3/uL (0.0-1.1) Eosinophils # (Auto) 0.0 x10^3/uL (0.0-0.7) Basophils # (Auto) 0.0 x10^3/uL (0.0-0.2) Sodium Level 142 mmol/L (136-145) Potassium Level 4.3 mmol/L (3.5-5.1) Chloride Level 99 mmol/L (98-107) Carbon Dioxide Level 32 mmol/L (21-32) Anion Gap 11 (6-14) Blood Urea Nitrogen 23 mg/dL (8-26) Creatinine 1.1 mg/dL (0.7-1.3) Estimated GFR (Cockcroft-Gault) 82.9 Glucose Level 250 mg/dL (70-99) Calcium Level 8.6 mg/dL (8.5-10.1) Phosphorus Level 3.1 mg/dL (2.6-4.7) Albumin 2.9 g/dL (3.4-5.0) Test 05/02/19 16:04 Glucose (Fingerstick) 215 mg/dL (70-99) Laboratory Tests Test 05/01/19 17:05 05/01/19 20:57 05/02/19 05:15 05/02/19 08:03 Urine Collection Type Unknown Urine Color Yellow Urine Clarity Clear Urine pH 5.5 (<5.0-8.0) Urine Specific [place] 1.015 (1.000-1.030) Urine Protein Negative mg/dL (NEG-TRACE) Urine Glucose (UA) Negative mg/dL (NEG) Urine Ketones (Stick) Negative mg/dL (NEG) Urine Blood Negative (NEG) Urine Nitrite Negative (NEG) Urine Bilirubin Negative (NEG) Urine Urobilinogen Dipstick 1.0 mg/dL (0.2 mg/dL) Urine Leukocyte Esterase Negative (NEG) Urine RBC 0 /HPF (0-2) Urine WBC Occ /HPF (0-4) Urine Squamous Epithelial Cells Few /LPF Urine Bacteria 0 /HPF (0-FEW) Urine Mucus Slight /LPF Glucose (Fingerstick) 207 mg/dL (70-99) 127 mg/dL (70-99) White Blood Count 10.4 x10^3/uL (4.0-11.0) Red Blood Count 3.90 x10^6/uL (4.30-5.70) Hemoglobin 11.5 g/dL (13.0-17.5) Hematocrit 34.7 % (39.0-53.0) Mean Corpuscular Volume 89 fL (79-100) Mean Corpuscular Hemoglobin 30 pg (25-35) Mean Corpuscular Hemoglobin Concent 33 g/dL (31-37) Red Cell Distribution Width 15.1 % (11.5-14.5) Platelet Count 208 x10^3/uL (140-400) Neutrophils (%) (Auto) 94 % (31-73) Lymphocytes (%) (Auto) 3 % (24-48) Monocytes (%) (Auto) 3 % (0-9) Eosinophils (%) (Auto) 0 % (0-3) Basophils (%) (Auto) 0 % (0-3) Neutrophils # (Auto) 9.8 x10^3/uL (1.8-7.7) Lymphocytes # (Auto) 0.3 x10^3/uL (1.0-4.8) Monocytes # (Auto) 0.4 x10^3/uL (0.0-1.1) Eosinophils # (Auto) 0.0 x10^3/uL (0.0-0.7) Basophils # (Auto) 0.0 x10^3/uL (0.0-0.2) Sodium Level 142 mmol/L (136-145) Potassium Level 4.3 mmol/L (3.5-5.1) Chloride Level 99 mmol/L (98-107) Carbon Dioxide Level 32 mmol/L (21-32) Anion Gap 11 (6-14) Blood Urea Nitrogen 23 mg/dL (8-26) Creatinine 1.1 mg/dL (0.7-1.3) Estimated GFR (Cockcroft-Gault) 82.9 Glucose Level 250 mg/dL (70-99) Calcium Level 8.6 mg/dL (8.5-10.1) Phosphorus Level 3.1 mg/dL (2.6-4.7) Albumin 2.9 g/dL (3.4-5.0) Test 05/02/19 10:59 05/02/19 16:04 Glucose (Fingerstick) 155 mg/dL (70-99) 215 mg/dL (70-99) Medications Active Scripts Medications Dose Route/Sig Max Daily Dose Days Date Category Dose Instructions Trazodone Hcl 50 Mg Tablet 50 Mg PO QHS 30 03/14/19 Rx Proair Hfa Inhaler (Albuterol Sulfate) 8.5 Gm Hfa.aer.ad 2 Puff IH PRN Q4-6HRS PRN 21 01/17/19 Rx Lasix (Furosemide) 40 Mg Tablet 1 Tab PO DAILY 30 01/09/19 Reported Feosol (Ferrous Sulfate) 325 Mg Tablet 1 Tab PO DAILY 30 01/09/19 Reported Mag-Al Plus Xs Suspension (Mag Hydrox/Al Hydrox/Simeth) 30 Ml Oral.susp 30 Ml PO PRN DAILY PRN 10 12/31/18 Rx [place] (Sodium Chloride) 44 Ml [place] 1 Angel NS PRN Q1HR PRN 10 12/31/18 Rx Hydrocodone-Apap 10-325 (Hydrocodone Bit/Acetaminophen) 1 Tab Tablet 1 Tab PO PRN Q6HRS PRN 12/22/18 Rx Ativan (Lorazepam) 1 Mg Tablet 1 Mg PO BID 12/20/18 Reported Culturelle (Lactobacillus Rhamnosus Gg) 1 Each Cap.sprink 1 Cap PO BID 30 11/11/18 Rx Colace (Docusate Sodium) 100 Mg Capsule 100 Mg PO DAILY 30 11/11/18 Rx Fluticasone Propionate Nasal [place] (Fluticasone Propionate) 16 Gm [place].susp 2 [place] NS DAILY 30 11/11/18 Rx Miralax (Polyethylene Glycol 3350) 119 Gm Powder 17 Gm PO BID 11/03/18 Rx Duoneb 0.5-3(2.5) Mg/3 Ml (Albuterol/Ipratropium) 3 Ml Ampul.neb 3 Ml NEB QID 10/28/18 Rx Tessalon Perle (Benzonatate) 100 Mg Capsule 1 Cap PO TID 10/28/18 Rx Montelukast Sodium Tablet (Montelukast Sodium) 10 Mg Tablet 10 Mg PO QHS 10/28/18 Rx Lidocaine PATCH (Lidocaine) 1 Each Adh..patch 1 Each TP DAILY 30 09/11/18 Rx REMOVE AFTER 12 HOURS Metformin Hcl 500 Mg Tablet 500 Mg PO DAILYWBKFT 09/09/18 Reported Aspirin Ec (Aspirin) 81 Mg Tablet. 81 Mg PO DAILYWBKFT 30 08/28/18 Rx Guaifenesin 100 Mg/5 Ml Liquid 200 Mg PO PRN Q4HRS PRN 30 05/30/18 Rx Vitamin D3 (Cholecalciferol (Vitamin D3)) 5,000 Unit Tablet 5,000 Unit PO DAILY 03/15/18 Reported Reglan (Metoclopramide Hcl) 10 Mg Tablet 0.5 Tab PO QID 30 02/14/18 Rx Potassium Chloride (Potassium Chloride) 20 Meq Tablet.er 20 Meq PO DAILY 01/13/18 Reported Protonix (Pantoprazole Sodium) 20 Mg Tablet.dr 2 Tab PO DAILY 11/18/17 Reported Atorvastatin Calcium 10 Mg Tablet 10 Mg PO HS 08/21/17 Reported Symbicort 160-4.5 Mcg Inhaler (Budesonide/Formoterol Fumarate) 10.2 Gm Hfa.aer.ad 2 Puff IH BID 09/21/15 Reported Impression . IMPRESSION:1. Acute on chronic respiratory failure, the patient failed outpatient treatment, he has been in the Emergency Room the last 4-5 days. He requires inpatient admission utilizing accessory muscles to breathe. We will continue IV antibiotics and IV steroids. Continue nebulized treatments. 2. Obstructive sleep apnea. 3. History of deep venous thrombosis and pulmonary embolism. 4. Clinical depression. 5. History of vertebral compression fractures. 6. Diabetes with peripheral neuropathy. 7. Hypertension. Plan . NEBS IV STERODIS 02 DVT AND GI PROPH PT WITH SEVERE COPD FEVI LESS THAN 25% OF PREDICTED SCOTT COOK MD May 02, 2019 16:55
[2019-05-02 19:55] VITALS: BP 122/75
[2019-05-02] MEDS: PATCH REMOVAL. MC SCH (21:00)
[2019-05-02] MEDS: traZODone 50 MG TABLET. PO SCH (21:33)
[2019-05-02] MEDS: MONTELUKAST SODIUM 10 MG TABLET. PO SCH (21:33)
[2019-05-02] MEDS: ATORVASTATIN CALCIUM 10 MG TABLET. PO SCH (21:34)
[2019-05-02 23:00] VITALS: BP 132/70
[2019-05-03] MEDS: cefTRIAXone IV Push 1 GM VIAL. IVP SCH (00:09)
[2019-05-03 03:25] VITALS: BP 133/82
[2019-05-03] MEDS: IPRATRPIUM/ALBUTEROL 0.5/2.5MG 3 ML NEBU. NEB SCH ×5 (04:50→20:32)
[2019-05-03] MEDS: HYDROcodone/APAP 10/325 1 TAB TABLET PO PRN ×3 (05:24→19:16)
[2019-05-03] MEDS: LORazepam 1 MG TABLET PO SCH ×2 (05:24→15:54)
[2019-05-03] MEDS: methylPREDNISolone SOD SUCC PF 125 MG/2 ML VIAL. IV SCH (05:25)
[2019-05-03 07:19] VITALS: BP 149/87
[2019-05-03] MEDS: INSULIN LISPRO 300 UNITS/3 ML VIAL. SQ SCH ×3 (08:00→16:52)
--- NOTE | 2019-05-03 08:09 | PDOC ---
PULMONARY PROGRESS NOTES Subjective sob, cough slightly better, no pain Vitals Vital Signs Date Time Temp Pulse Resp B/P (MAP) Pulse Ox O2 Delivery O2 Flow Rate FiO2 05/03/19 07:19 98.1 66 16 149/87 (107) 99 Nasal Cannula 2.0 98.1 ROS: No Nausea, No Chest Pain, No Abdominal Pain, No Increase Cough General: Alert Lungs: Wheezing, Other (diminished, coarse) Cardiovascular: S1, S2 Abdomen: Soft, Non-tender Neuro Exam: Alert Extremities: No Edema Skin: Warm Labs Laboratory Tests Test 05/01/19 08:27 05/01/19 10:50 05/01/19 11:32 05/01/19 16:30 Glucose (Fingerstick) 177 mg/dL (70-99) 146 mg/dL (70-99) 148 mg/dL (70-99) Troponin I Quantitative < 0.017 ng/mL (0.000-0.055) Test 05/01/19 17:05 05/01/19 20:57 05/02/19 05:15 05/02/19 08:03 Urine Collection Type Unknown Urine Color Yellow Urine Clarity Clear Urine pH 5.5 (<5.0-8.0) Urine Specific [place] 1.015 (1.000-1.030) Urine Protein Negative mg/dL (NEG-TRACE) Urine Glucose (UA) Negative mg/dL (NEG) Urine Ketones (Stick) Negative mg/dL (NEG) Urine Blood Negative (NEG) Urine Nitrite Negative (NEG) Urine Bilirubin Negative (NEG) Urine Urobilinogen Dipstick 1.0 mg/dL (0.2 mg/dL) Urine Leukocyte Esterase Negative (NEG) Urine RBC 0 /HPF (0-2) Urine WBC Occ /HPF (0-4) Urine Squamous Epithelial Cells Few /LPF Urine Bacteria 0 /HPF (0-FEW) Urine Mucus Slight /LPF Glucose (Fingerstick) 207 mg/dL (70-99) 127 mg/dL (70-99) White Blood Count 10.4 x10^3/uL (4.0-11.0) Red Blood Count 3.90 x10^6/uL (4.30-5.70) Hemoglobin 11.5 g/dL (13.0-17.5) Hematocrit 34.7 % (39.0-53.0) Mean Corpuscular Volume 89 fL (79-100) Mean Corpuscular Hemoglobin 30 pg (25-35) Mean Corpuscular Hemoglobin Concent 33 g/dL (31-37) Red Cell Distribution Width 15.1 % (11.5-14.5) Platelet Count 208 x10^3/uL (140-400) Neutrophils (%) (Auto) 94 % (31-73) Lymphocytes (%) (Auto) 3 % (24-48) Monocytes (%) (Auto) 3 % (0-9) Eosinophils (%) (Auto) 0 % (0-3) Basophils (%) (Auto) 0 % (0-3) Neutrophils # (Auto) 9.8 x10^3/uL (1.8-7.7) Lymphocytes # (Auto) 0.3 x10^3/uL (1.0-4.8) Monocytes # (Auto) 0.4 x10^3/uL (0.0-1.1) Eosinophils # (Auto) 0.0 x10^3/uL (0.0-0.7) Basophils # (Auto) 0.0 x10^3/uL (0.0-0.2) Sodium Level 142 mmol/L (136-145) Potassium Level 4.3 mmol/L (3.5-5.1) Chloride Level 99 mmol/L (98-107) Carbon Dioxide Level 32 mmol/L (21-32) Anion Gap 11 (6-14) Blood Urea Nitrogen 23 mg/dL (8-26) Creatinine 1.1 mg/dL (0.7-1.3) Estimated GFR (Cockcroft-Gault) 82.9 Glucose Level 250 mg/dL (70-99) Calcium Level 8.6 mg/dL (8.5-10.1) Phosphorus Level 3.1 mg/dL (2.6-4.7) Albumin 2.9 g/dL (3.4-5.0) Test 05/02/19 10:59 05/02/19 16:04 05/02/19 21:33 05/03/19 07:13 Glucose (Fingerstick) 155 mg/dL (70-99) 215 mg/dL (70-99) 158 mg/dL (70-99) 141 mg/dL (70-99) Laboratory Tests Test 05/02/19 10:59 05/02/19 16:04 05/02/19 21:33 05/03/19 07:13 Glucose (Fingerstick) 155 mg/dL (70-99) 215 mg/dL (70-99) 158 mg/dL (70-99) 141 mg/dL (70-99) Medications Active Scripts Medications Dose Route/Sig Max Daily Dose Days Date Category Dose Instructions Trazodone Hcl 50 Mg Tablet 50 Mg PO QHS 30 03/14/19 Rx Proair Hfa Inhaler (Albuterol Sulfate) 8.5 Gm Hfa.aer.ad 2 Puff IH PRN Q4-6HRS PRN 21 01/17/19 Rx Lasix (Furosemide) 40 Mg Tablet 1 Tab PO DAILY 30 01/09/19 Reported Feosol (Ferrous Sulfate) 325 Mg Tablet 1 Tab PO DAILY 30 01/09/19 Reported Mag-Al Plus Xs Suspension (Mag Hydrox/Al Hydrox/Simeth) 30 Ml Oral.susp 30 Ml PO PRN DAILY PRN 10 12/31/18 Rx [place] (Sodium Chloride) 44 Ml [place] 1 [place] NS PRN Q1HR PRN 12/31/18 Rx Hydrocodone-Apap 10-325 (Hydrocodone Bit/Acetaminophen) 1 Tab Tablet 1 Tab PO PRN Q6HRS PRN 12/22/18 Rx Ativan (Lorazepam) 1 Mg Tablet 1 Mg PO BID 12/20/18 Reported Culturelle (Lactobacillus Rhamnosus Gg) 1 Each Cap.sprink 1 Cap PO BID 30 11/11/18 Rx Colace (Docusate Sodium) 100 Mg Capsule 100 Mg PO DAILY 30 11/11/18 Rx Fluticasone Propionate Nasal [place] (Fluticasone Propionate) 16 Gm [place].susp 2 [place] NS DAILY 30 11/11/18 Rx Miralax (Polyethylene Glycol 3350) 119 Gm Powder 17 Gm PO BID 11/03/18 Rx Duoneb 0.5-3(2.5) Mg/3 Ml (Albuterol/Ipratropium) 3 Ml Ampul.neb 3 Ml NEB QID 10/28/18 Rx Tessalon [place] (Benzonatate) 100 Mg Capsule 1 Cap PO TID 10/28/18 Rx Montelukast Sodium Tablet (Montelukast Sodium) 10 Mg Tablet 10 Mg PO QHS 10/28/18 Rx Lidocaine PATCH (Lidocaine) 1 Each Adh..patch 1 Each TP DAILY 30 09/11/18 Rx REMOVE AFTER 12 HOURS Metformin Hcl 500 Mg Tablet 500 Mg PO DAILYWBKFT 09/09/18 Reported Aspirin Ec (Aspirin) 81 Mg Tablet.dr 81 Mg PO DAILYWBKFT 30 08/28/18 Rx Guaifenesin 100 Mg/5 Ml Liquid 200 Mg PO PRN Q4HRS PRN 30 05/30/18 Rx Vitamin D3 (Cholecalciferol (Vitamin D3)) 5,000 Unit Tablet 5,000 Unit PO DAILY 03/15/18 Reported Reglan (Metoclopramide Hcl) 10 Mg Tablet 0.5 Tab PO QID 30 02/14/18 Rx Potassium Chloride (Potassium Chloride) 20 Meq Tablet.er 20 Meq PO DAILY 01/13/18 Reported Protonix (Pantoprazole Sodium) 20 Mg Tablet.dr 2 Tab PO DAILY 11/18/17 Reported Atorvastatin Calcium 10 Mg Tablet 10 Mg PO HS 08/21/17 Reported Symbicort 160-4.5 Mcg Inhaler (Budesonide/Formoterol Fumarate) 10.2 Gm Hfa.aer.ad 2 Puff IH BID 09/21/15 Reported Impression . IMPRESSION:1. Acute on chronic respiratory failure, the patient failed outpatient treatment, he has been in the Emergency Room the last 4-5 days. He requires inpatient admission utilizing accessory muscles to breathe. We will continue IV antibiotics and IV steroids. Continue nebulized treatments. 2. Obstructive sleep apnea. 3. History of deep venous thrombosis and pulmonary embolism. 4. Clinical depression. 5. History of vertebral compression fractures. 6. Diabetes with peripheral neuropathy. 7. Hypertension. Plan . BD, NEBS change solumedrol to 40 q 8 hrs 02 cont abx DVT AND GI PROPH PT WITH SEVERE COPD FEVI LESS THAN 25% OF PREDICTED discussed w pt, rn TAMAR RING MD May 03, 2019 08:09
[2019-05-03] MEDS: POLYETHYLENE GLYCOL 3350 17 GM PACKET. PO SCH ×2 (08:28→22:19)
[2019-05-03] MEDS: ASPIRIN ENTERIC COATED 81 MG TABLET.DR. PO SCH (08:29)
[2019-05-03] MEDS: POTASSIUM CHLORIDE 20 MEQ TABLET.ER. PO SCH (08:29)
[2019-05-03] MEDS: FERROUS SULFATE 325 MG TABLET. PO SCH (08:29)
[2019-05-03] MEDS: PANTOPRAZOLE 40 MG TABLET.DR. PO SCH (08:29)
[2019-05-03] MEDS: FUROSEMIDE 40 MG TABLET. PO SCH (08:29)
[2019-05-03] MEDS: CHOLECALCIFEROL (VITAMIN D3) 5,000 UNIT CAPSULE PO SCH (08:29)
[2019-05-03] MEDS: BENZONATATE 100 MG CAPSULE. PO SCH ×3 (08:29→22:20)
[2019-05-03] MEDS: LIDOCAINE (700MG/PATCH) PATCH. TP SCH (08:30)
[2019-05-03] MEDS: metFORMIN 500 MG TABLET PO SCH (08:30)
[2019-05-03] MEDS: METOCLOPRAMIDE 10 MG TABLET. PO SCH ×4 (08:30→22:19)
[2019-05-03] MEDS: FLUTICASONE 50MCG/NASAL SPRAY 16GM BOTTLE. NS SCH (08:30)
[2019-05-03] MEDS: LACTOBACILLUS RHAMNOSUS GG 1 CAPSULE. PO SCH ×2 (08:30→22:19)
[2019-05-03] MEDS: DOCUSATE SODIUM 100 MG CAPSULE. PO SCH (08:30)
[2019-05-03] MEDS: ENOXAPARIN 40 MG/0.4 ML SYRINGE. SQ SCH (08:34)
--- NOTE | 2019-05-03 09:45 | PDOC ---
PROGRESS NOTES History of Present Illness History of Present Illness VTE Prophylaxis Ordered VTE Prophylaxis Devices: Yes VTE Pharmacological Prophylaxi: Yes Assessment/Plan Assessment/Plan impression 1. Acute on chronic HYPOXIC respiratory failure secondary to acute exacerbation of chronic obstructive pulmonary disease and acute bronchitis. 2. Abnormal chest x-ray. 3. Acute exacerbation of chronic obstructive pulmonary disease. 4. Acute bronchitis. 5. END STAGE LUNG DISEASE 6. Very severe chronic obstructive pulmonary disease., endstage 7. Ex-smoker. 8. back pain 9. old compression fracture in the lower thoracic spine. Plan . 1. Titrate FiO2 to keep O2 saturation 92%. 2. Bronchodilator. 3. Inhaled corticosteroid. 4. steroid taper 5. following PULM 6. Lovenox for deep vein thrombosis prophylaxis. 7. Protonix for stress ulcer prophylaxis. 8. The patient is being evaluated for lung transplant at [place] 9. Continue not smoking. 10. CONT BIPAP qhs 11. pain control 12. ua 13. miralax 05/02 STILL COARSE, WHEEZING 36 min pt exam, chart review, > 50% of time spent with exam, chart review, pt care coordination Vitals Vitals Vital Signs Date Time Temp Pulse Resp B/P (MAP) Pulse Ox O2 Delivery O2 Flow Rate FiO2 05/03/19 07:19 98.1 66 16 149/87 (107) 99 Nasal Cannula 2.0 98.1 Physical Exam General: Alert, Oriented X3, Cooperative, No acute distress Heart: Regular rate, Normal S1, Normal S2 Lungs: Wheezing, Other (diminished, coarse) Abdomen: Normal bowel sounds Extremities: No clubbing Skin: No breakdown Labs LABS Laboratory Tests Test 05/02/19 10:59 05/02/19 16:04 05/02/19 21:33 05/03/19 07:13 Glucose (Fingerstick) 155 mg/dL (70-99) 215 mg/dL (70-99) 158 mg/dL (70-99) 141 mg/dL (70-99) Assessment and Plan Assessmemt and Plan Problems Medical Problems: (1) Acute exacerbation of chronic obstructive pulmonary disease (COPD) Status: Acute Comment Review of Relevant I have reviewed the following items franki (where applicable) has been applied. Labs Laboratory Tests Test 05/01/19 10:50 05/01/19 11:32 05/01/19 16:30 05/01/19 17:05 Troponin I Quantitative < 0.017 ng/mL (0.000-0.055) Glucose (Fingerstick) 146 mg/dL (70-99) 148 mg/dL (70-99) Urine Collection Type Unknown Urine Color Yellow Urine Clarity Clear Urine pH 5.5 (<5.0-8.0) Urine Specific [place] 1.015 (1.000-1.030) Urine Protein Negative mg/dL (NEG-TRACE) Urine Glucose (UA) Negative mg/dL (NEG) Urine Ketones (Stick) Negative mg/dL (NEG) Urine Blood Negative (NEG) Urine Nitrite Negative (NEG) Urine Bilirubin Negative (NEG) Urine Urobilinogen Dipstick 1.0 mg/dL (0.2 mg/dL) Urine Leukocyte Esterase Negative (NEG) Urine RBC 0 /HPF (0-2) Urine WBC Occ /HPF (0-4) Urine Squamous Epithelial Cells Few /LPF Urine Bacteria 0 /HPF (0-FEW) Urine Mucus Slight /LPF Test 05/01/19 20:57 05/02/19 05:15 05/02/19 08:03 05/02/19 10:59 Glucose (Fingerstick) 207 mg/dL (70-99) 127 mg/dL (70-99) 155 mg/dL (70-99) White Blood Count 10.4 x10^3/uL (4.0-11.0) Red Blood Count 3.90 x10^6/uL (4.30-5.70) Hemoglobin 11.5 g/dL (13.0-17.5) Hematocrit 34.7 % (39.0-53.0) Mean Corpuscular Volume 89 fL (79-100) Mean Corpuscular Hemoglobin 30 pg (25-35) Mean Corpuscular Hemoglobin Concent 33 g/dL (31-37) Red Cell Distribution Width 15.1 % (11.5-14.5) Platelet Count 208 x10^3/uL (140-400) Neutrophils (%) (Auto) 94 % (31-73) Lymphocytes (%) (Auto) 3 % (24-48) Monocytes (%) (Auto) 3 % (0-9) Eosinophils (%) (Auto) 0 % (0-3) Basophils (%) (Auto) 0 % (0-3) Neutrophils # (Auto) 9.8 x10^3/uL (1.8-7.7) Lymphocytes # (Auto) 0.3 x10^3/uL (1.0-4.8) Monocytes # (Auto) 0.4 x10^3/uL (0.0-1.1) Eosinophils # (Auto) 0.0 x10^3/uL (0.0-0.7) Basophils # (Auto) 0.0 x10^3/uL (0.0-0.2) Sodium Level 142 mmol/L (136-145) Potassium Level 4.3 mmol/L (3.5-5.1) Chloride Level 99 mmol/L (98-107) Carbon Dioxide Level 32 mmol/L (21-32) Anion Gap 11 (6-14) Blood Urea Nitrogen 23 mg/dL (8-26) Creatinine 1.1 mg/dL (0.7-1.3) Estimated GFR (Cockcroft-Gault) 82.9 Glucose Level 250 mg/dL (70-99) Calcium Level 8.6 mg/dL (8.5-10.1) Phosphorus Level 3.1 mg/dL (2.6-4.7) Albumin 2.9 g/dL (3.4-5.0) Test 05/02/19 16:04 05/02/19 21:33 05/03/19 07:13 Glucose (Fingerstick) 215 mg/dL (70-99) 158 mg/dL (70-99) 141 mg/dL (70-99) Laboratory Tests Test 05/02/19 10:59 05/02/19 16:04 05/02/19 21:33 05/03/19 07:13 Glucose (Fingerstick) 155 mg/dL (70-99) 215 mg/dL (70-99) 158 mg/dL (70-99) 141 mg/dL (70-99) Medications Current Medications Albuterol Sulfate (Ventolin Neb Soln) 10 mg 1X ONCE CONT NEB Last administered on 04/30/19at 18:12; Start 04/30/19 at 18:00; Stop 04/30/19 at 18:01; Status DC Methylprednisolone Sodium Succinate (SOLU-Medrol 125MG VIAL) 125 mg 1X ONCE IV Last administered on 04/30/19at 18:51; Start 04/30/19 at 18:00; Stop 04/30/19 at 18:01; Status DC Ondansetron HCl (Zofran) 4 mg PRN Q8HRS PRN IV NAUSEA/VOMITING; Start 04/30/19 at 19:45; Stop 05/01/19 at 19:44; Status DC Fentanyl Citrate (Fentanyl 2ml Vial) 50 mcg PRN Q1HR PRN IV PAIN Last administered on 05/01/19at 14:43; Start 04/30/19 at 19:45; Stop 05/01/19 at 19:44; Status DC Albuterol/ Ipratropium (Duoneb) 3 ml RTQID NEB Last administered on 04/30/19at 20:00; Start 04/30/19 at 20:00; Stop 04/30/19 at 23:47; Status DC Insulin Human Lispro (HumaLOG) 0-5 UNITS TIDWMEALS SQ Last administered on 05/02/19at 18:46; Start 05/01/19 at 08:00 Dextrose (Dextrose 50%-Water Syringe) 12.5 gm PRN Q15MIN PRN IV SEE COMMENTS; Start 04/30/19 at 23:30 Dextrose (Iv Dextrose 5%) 250 ml PRN Q15MIN PRN IV SEE COMMENTS; Start 04/30/19 at 23:30 Methylprednisolone Sodium Succinate (SOLU-Medrol 125MG VIAL) 62.5 mg Q8HRS IV Last administered on 05/03/19at 05:25; Start 05/01/19 at 06:00; Stop 05/03/19 at 08:10; Status DC Ceftriaxone Sodium (Rocephin) 1 gm Q24H IVP Last administered on 05/03/19at 00:09; Start 04/30/19 at 23:30 Aspirin (Ecotrin) 81 mg DAILYWBKFT PO Last administered on 05/03/19at 08:29; Start 05/01/19 at 08:00 Atorvastatin Calcium (Lipitor) 10 mg HS PO Last administered on 05/02/19at 21:34; Start 05/01/19 at 21:00 Benzonatate (Tessalon Perle) 100 mg TID PO Last administered on 05/03/19at 08:29; Start 05/01/19 at 09:00 Docusate Sodium (Colace) 100 mg DAILY PO Last administered on 05/03/19 08:30; Start 05/01/19 at 09:00 Ferrous Sulfate (Feosol) 325 mg DAILY PO Last administered on 05/03/19 08:29; Start 05/01/19 at 09:00 Fluticasone Propionate (Flonase) 2 spray DAILY NS Last administered on 05/03/19 08:30; Start 05/01/19 at 09:00 Furosemide (Lasix) 40 mg DAILY PO Last administered on 05/03/19 08:29; Start 05/01/19 at 09:00 Guaifenesin (Robitussin) 200 mg PRN Q4HRS PRN PO COUGH; Start 04/30/19 at 23:30; Stop 05/02/19 at 11:08; Status DC Acetaminophen/ Hydrocodone Bitart (Lortab 10/325) 1 tab PRN Q6HRS PRN PO MODERATE-SEVERE PAIN Last administered on 05/03/19 05:24; Start 04/30/19 at 23:30 Albuterol/ Ipratropium (Duoneb) 3 ml RTQID NEB Last administered on 05/02/19 08:03; Start 05/01/19 at 08:00; Stop 05/02/19 at 11:09; Status DC Lactobacillus Rhamnosus (Culturelle) 1 cap BID PO Last administered on 05/03/19 08:30; Start 05/01/19 at 09:00 Lidocaine (Lidoderm) 1 patch DAILY TP ; Start 05/01/19 at 09:00 Lorazepam (Ativan) 1 mg BID PO ; Start 05/01/19 at 09:00; Stop 05/01/19 at 05:01; Status DC Al Hydroxide/Mg Hydroxide (Mylanta Plus Xs) 30 ml PRN DAILY PRN PO HEARTBURN / GAS; Start 04/30/19 at 23:30; Status Cancel Metformin HCl (Glucophage) 500 mg DAILYWBKFT PO Last administered on 05/03/19 08:30; Start 05/01/19 at 08:00 Metoclopramide HCl (Reglan) 5 mg QID PO Last administered on 05/03/19 08:30; Start 05/01/19 at 09:00 Montelukast Sodium (Singulair) 10 mg QHS PO Last administered on 05/02/19 21:33; Start 05/01/19 at 21:00 Polyethylene Glycol (miraLAX PACKET) 17 gm BID PO Last administered on 05/03/19 08:28; Start 05/01/19 at 09:00 Potassium Chloride (Klor-Con) 20 meq DAILYWBKFT PO Last administered on 05/03/19 08:29; Start 05/01/19 at 08:00 Sodium Chloride (Saline Mist Nasal) 1 angel PRN Q1HR PRN NS NASAL CONGESTION Last administered on 05/01/19at 09:35; Start 04/30/19 at 23:30 Trazodone HCl (Desyrel) 50 mg QHS PO Last administered on 05/02/19 21:33; Start 05/01/19 at 21:00 Vitamin D (Vitamin D3) 5,000 unit DAILY PO Last administered on 05/03/19 08:29; Start 05/01/19 at 09:00 Pantoprazole Sodium (Protonix) 40 mg DAILYAC PO Last administered on 05/03/19at 08:29; Start 05/01/19 at 07:30 Miscellaneous (Lidoderm Patch Removal) 1 ea QHS MC ; Start 05/01/19 at 21:00 Lorazepam (Ativan) 1 mg Q12H PO Last administered on 05/03/19at 05:24; Start 05/01/19 at 05:00 Albuterol Sulfate (Ventolin Neb Soln) 2.5 mg PRN Q4HRS PRN NEB SHORTNESS OF BREATH Last administered on 05/02/19 04:20; Start 05/01/19 at 05:15 Sodium Chloride (Normal Saline Flush) 3 ml QSHIFT PRN IV AFTER MEDS AND BLOOD DRAWS; Start 05/01/19 at 10:45 Ondansetron HCl (Zofran) 4 mg PRN Q4HRS PRN IV NAUSEA/VOMITING; Start 05/01/19 at 10:45 Acetaminophen (Tylenol) 650 mg PRN Q4HRS PRN PO TEMP OVER 100.4F OR MILD PAIN; Start 05/01/19 at 10:45 Al Hydroxide/Mg Hydroxide (Mylanta Plus Xs) 30 ml PRN DAILY PRN PO HEARTBURN / GAS; Start 05/01/19 at 10:45 Clonidine HCl (Catapres) 0.1 mg PRN Q6HRS PRN PO SBP>160 OR DBP>90; Start 05/01/19 at 10:45 Docusate Sodium (Colace) 100 mg PRN BID PRN PO CONSTIPATION; Start 05/01/19 at 10:45 Albuterol/ Ipratropium (Duoneb) 3 ml Q4HRS NEB Last administered on 05/03/19at 07:01; Start 05/01/19 at 11:00 Guaifenesin (Robitussin) 200 mg PRN Q4HRS PRN PO COUGH; Start 05/01/19 at 10:45 Enoxaparin Sodium (Lovenox 40mg Syringe) 40 mg Q24H SQ ; Start 05/01/19 at 11:00 Sodium Chloride 1,000 ml @ 75 mls/hr [id number] IV Last administered on 05/02/19at 19:31; Start 05/01/19 at 13:15 Methylprednisolone Sodium Succinate (SOLU-Medrol 40MG VIAL) 40 mg Q8HRS IV ; Start 05/03/19 at 14:00 Active Scripts Active Trazodone Hcl 50 Mg Tablet 50 Mg PO QHS 30 Days Proair Hfa Inhaler (Albuterol Sulfate) 8.5 Gm Hfa.aer.ad 2 Puff IH PRN Q4-6HRS PRN 21 Days Mag-Al Plus Xs Suspension (Mag Hydrox/Al Hydrox/Simeth) 30 Ml Oral.susp 30 Ml PO PRN DAILY PRN 10 Days [place] (Sodium Chloride) 44 Ml [place] 1 Angel NS PRN Q1HR PRN 10 Days Hydrocodone-Apap 10-325 (Hydrocodone Bit/Acetaminophen) 1 Tab Tablet 1 Tab PO PRN Q6HRS PRN Culturelle (Lactobacillus Rhamnosus Gg) 1 Each Cap.sprink 1 Cap PO BID 30 Days Colace (Docusate Sodium) 100 Mg Capsule 100 Mg PO DAILY 30 Days Fluticasone Propionate Nasal [place] (Fluticasone Propionate) 16 Gm [place].susp 2 [place] NS DAILY 30 Days Miralax (Polyethylene Glycol 3350) 119 Gm Powder 17 Gm PO BID Duoneb 0.5-3(2.5) Mg/3 Ml (Albuterol/Ipratropium) 3 Ml Ampul.neb 3 Ml NEB QID Tessalon Perle (Benzonatate) 100 Mg Capsule 1 Cap PO TID Montelukast Sodium Tablet (Montelukast Sodium) 10 Mg Tablet 10 Mg PO QHS Lidocaine PATCH (Lidocaine) 1 Each Adh..patch 1 Each TP DAILY 30 Days REMOVE AFTER 12 HOURS Aspirin Ec (Aspirin) 81 Mg Tablet.dr 81 Mg PO DAILYWBKFT 30 Days Guaifenesin 100 Mg/5 Ml Liquid 200 Mg PO PRN Q4HRS PRN 30 Days Reglan (Metoclopramide Hcl) 10 Mg Tablet 0.5 Tab PO QID 30 Days Reported Lasix (Furosemide) 40 Mg Tablet 1 Tab PO DAILY 30 Days Feosol (Ferrous Sulfate) 325 Mg Tablet 1 Tab PO DAILY 30 Days Ativan (Lorazepam) 1 Mg Tablet 1 Mg PO BID Metformin Hcl 500 Mg Tablet 500 Mg PO DAILYWBKFT Vitamin D3 (Cholecalciferol (Vitamin D3)) 5,000 Unit Tablet 5,000 Unit PO DAILY Potassium Chloride (Potassium Chloride) 20 Meq Tablet.er 20 Meq PO DAILY Protonix (Pantoprazole Sodium) 20 Mg Tablet.dr 2 Tab PO DAILY Atorvastatin Calcium 10 Mg Tablet 10 Mg PO HS Symbicort 160-4.5 Mcg Inhaler (Budesonide/Formoterol Fumarate) 10.2 Gm Hfa.aer.ad 2 Puff IH BID Vitals/I & O Vital Sign - Last 24 Hours 05/02/19 05/02/19 05/02/19 05/02/19 11:12 12:43 13:42 14:42 Temp 97.5 97.5 Pulse 85 Resp 20 18 17 B/P (MAP) 126/88 (101) Pulse Ox 98 99 O2 Delivery Nasal Cannula Nasal Cannula Nasal Cannula O2 Flow Rate 2.0 3.0 3.0 3.0 05/02/19 05/02/19 05/02/19 05/02/19 15:23 16:10 19:31 19:55 Temp 97.9 98.1 97.9 98.1 Pulse 82 84 Resp 20 19 B/P (MAP) 136/80 (98) 122/75 (91) Pulse Ox 98 98 98 O2 Delivery Nasal Cannula Nasal Cannula Nasal Cannula O2 Flow Rate 2.0 3.0 3.0 3.0 05/02/19 05/02/19 05/02/19 05/02/19 20:00 20:12 20:31 23:00 Temp 97.7 97.7 Pulse 71 Resp 19 19 B/P (MAP) 132/70 (90) Pulse Ox 98 99 O2 Delivery Nasal Cannula Nasal Cannula Nasal Cannula Nasal Cannula O2 Flow Rate 3.0 3.0 3.0 3.0 05/02/19 05/03/19 05/03/19 05/03/19 23:49 03:25 04:50 05:24 Temp 98.4 98.4 Pulse 74 Resp 19 B/P (MAP) 133/82 (99) Pulse Ox 100 98 99 99 O2 Delivery Nasal Cannula Nasal Cannula Nasal Cannula Nasal Cannula O2 Flow Rate 3.0 3.0 3.0 3.0 05/03/19 05/03/19 05/03/19 06:24 07:02 07:19 Temp 98.1 98.1 Pulse 66 Resp 18 16 B/P (MAP) 149/87 (107) Pulse Ox 99 100 99 O2 Delivery Nasal Cannula Nasal Cannula Nasal Cannula O2 Flow Rate 3.0 3.0 2.0 Intake and Output 05/02/19 05/02/19 05/03/19 15:00 23:00 07:00 Intake Total 460 ml 800 ml 600 ml Output Total 800 ml 1250 ml Balance -340 ml -450 ml 600 ml Nutrition Consultation Dietary Evaluation: Recommendations by RD: Dietary education by RD, Increase Calorie Intake, Protein supplementation Comments: ADA/Cardiac diet Glucerna tid Expected Outcomes/Goals: to meet >75% est nutr needs Malnutrition Findings: Body Fat Depletion (Non Severe: Mild Depletion Weight Status: Appropriate TOMAS BAIG MD May 03, 2019 09:45
[2019-05-03 11:15] VITALS: BP 132/76
[2019-05-03] MEDS: methylPREDNISolone SOD SUCC PF 40 MG/ML VIAL. IV SCH ×2 (13:45→22:19)
[2019-05-03 15:31] VITALS: BP 128/74
[2019-05-03] MEDS: IV NORMAL SALINE 1000ML BAG 1,000 ML IV SCH (15:55)
[2019-05-03 19:00] VITALS: BP 146/90
[2019-05-03] MEDS: PATCH REMOVAL. MC SCH (21:00)
[2019-05-03] MEDS: guaiFENesin DM 600/30MG 1 TAB TAB.ER.12H PO SCH (22:19)
[2019-05-03] MEDS: traZODone 50 MG TABLET. PO SCH (22:19)
[2019-05-03] MEDS: ATORVASTATIN CALCIUM 10 MG TABLET. PO SCH (22:20)
[2019-05-03] MEDS: MONTELUKAST SODIUM 10 MG TABLET. PO SCH (22:20)
[2019-05-03 23:00] VITALS: BP 116/95
[2019-05-04] MEDS: IPRATRPIUM/ALBUTEROL 0.5/2.5MG 3 ML NEBU. NEB SCH ×6 (00:09→21:04)
[2019-05-04] MEDS: cefTRIAXone IV Push 1 GM VIAL. IVP SCH (01:08)
[2019-05-04] MEDS: LORazepam 1 MG TABLET PO SCH ×2 (05:32→16:06)
[2019-05-04] MEDS: IV NORMAL SALINE 1000ML BAG 1,000 ML IV SCH ×2 (05:33→21:15)
[2019-05-04] MEDS: methylPREDNISolone SOD SUCC PF 40 MG/ML VIAL. IV SCH ×3 (05:33→20:49)
[2019-05-04 07:15] VITALS: BP 151/101
[2019-05-04] MEDS: INSULIN LISPRO 300 UNITS/3 ML VIAL. SQ SCH ×3 (08:00→16:04)
[2019-05-04] MEDS: CHOLECALCIFEROL (VITAMIN D3) 5,000 UNIT CAPSULE PO SCH (08:30)
[2019-05-04] MEDS: FERROUS SULFATE 325 MG TABLET. PO SCH (08:30)
[2019-05-04] MEDS: DOCUSATE SODIUM 100 MG CAPSULE. PO SCH (08:30)
[2019-05-04] MEDS: PANTOPRAZOLE 40 MG TABLET.DR. PO SCH (08:30)
[2019-05-04] MEDS: metFORMIN 500 MG TABLET PO SCH (08:31)
[2019-05-04] MEDS: LACTOBACILLUS RHAMNOSUS GG 1 CAPSULE. PO SCH ×2 (08:31→20:50)
[2019-05-04] MEDS: ASPIRIN ENTERIC COATED 81 MG TABLET.DR. PO SCH (08:31)
[2019-05-04] MEDS: guaiFENesin DM 600/30MG 1 TAB TAB.ER.12H PO SCH ×2 (08:31→20:50)
[2019-05-04] MEDS: POTASSIUM CHLORIDE 20 MEQ TABLET.ER. PO SCH (08:31)
[2019-05-04] MEDS: FUROSEMIDE 40 MG TABLET. PO SCH (08:31)
[2019-05-04] MEDS: METOCLOPRAMIDE 10 MG TABLET. PO SCH ×4 (08:31→20:50)
[2019-05-04] MEDS: POLYETHYLENE GLYCOL 3350 17 GM PACKET. PO SCH ×2 (08:32→20:49)
[2019-05-04] MEDS: LIDOCAINE (700MG/PATCH) PATCH. TP SCH (08:32)
[2019-05-04] MEDS: BENZONATATE 100 MG CAPSULE. PO SCH ×3 (08:32→20:51)
[2019-05-04] MEDS: FLUTICASONE 50MCG/NASAL SPRAY 16GM BOTTLE. NS SCH (08:32)
[2019-05-04] MEDS: ENOXAPARIN 40 MG/0.4 ML SYRINGE. SQ SCH (08:32)
[2019-05-04] MEDS: HYDROcodone/APAP 10/325 1 TAB TABLET PO PRN ×3 (08:32→20:50)
--- NOTE | 2019-05-04 09:47 | PDOC ---
PULMONARY PROGRESS NOTES Subjective sob slightly better, has cough, post nasal drip, no pain Vitals Vital Signs Date Time Temp Pulse Resp B/P (MAP) Pulse Ox O2 Delivery O2 Flow Rate FiO2 05/04/19 07:19 95 Nasal Cannula 3.0 05/04/19 07:15 98.9 74 22 151/101 (118) 98.9 ROS: No Nausea, No Chest Pain, No Abdominal Pain, No Increase Cough General: Alert Lungs: Other (diminished, coarse, a few end exp wheezing) Cardiovascular: S1, S2 Abdomen: Soft, Non-tender Neuro Exam: Alert Extremities: No Edema Skin: Warm Labs Laboratory Tests Test 05/02/19 10:59 05/02/19 16:04 05/02/19 21:33 05/03/19 07:13 Glucose (Fingerstick) 155 mg/dL (70-99) 215 mg/dL (70-99) 158 mg/dL (70-99) 141 mg/dL (70-99) Test 05/03/19 10:50 05/03/19 16:36 05/03/19 20:37 05/04/19 07:08 Glucose (Fingerstick) 286 mg/dL (70-99) 170 mg/dL (70-99) 153 mg/dL (70-99) 146 mg/dL (70-99) Laboratory Tests Test 05/03/19 10:50 05/03/19 16:36 05/03/19 20:37 05/04/19 07:08 Glucose (Fingerstick) 286 mg/dL (70-99) 170 mg/dL (70-99) 153 mg/dL (70-99) 146 mg/dL (70-99) Medications Active Scripts Medications Dose Route/Sig Max Daily Dose Days Date Category Dose Instructions Trazodone Hcl 50 Mg Tablet 50 Mg PO QHS 30 03/14/19 Rx Proair Hfa Inhaler (Albuterol Sulfate) 8.5 Gm Hfa.aer.ad 2 Puff IH PRN Q4-6HRS PRN 21 01/17/19 Rx Lasix (Furosemide) 40 Mg Tablet 1 Tab PO DAILY 30 01/09/19 Reported Feosol (Ferrous Sulfate) 325 Mg Tablet 1 Tab PO DAILY 30 01/09/19 Reported Mag-Al Plus Xs Suspension (Mag Hydrox/Al Hydrox/Simeth) 30 Ml Oral.susp 30 Ml PO PRN DAILY PRN 10 12/31/18 Rx [place] (Sodium Chloride) 44 Ml [place] 1 Angel NS PRN Q1HR PRN 10 12/31/18 Rx Hydrocodone-Apap 10-325 (Hydrocodone Bit/Acetaminophen) 1 Tab Tablet 1 Tab PO PRN Q6HRS PRN 12/22/18 Rx Ativan (Lorazepam) 1 Mg Tablet 1 Mg PO BID 12/20/18 Reported Culturelle (Lactobacillus Rhamnosus Gg) 1 Each Cap.sprink 1 Cap PO BID 30 11/11/18 Rx Colace (Docusate Sodium) 100 Mg Capsule 100 Mg PO DAILY 30 11/11/18 Rx Fluticasone Propionate Nasal [place] (Fluticasone Propionate) 16 Gm [place].susp 2 [place] NS DAILY 30 11/11/18 Rx Miralax (Polyethylene Glycol 3350) 119 Gm Powder 17 Gm PO BID 11/03/18 Rx Duoneb 0.5-3(2.5) Mg/3 Ml (Albuterol/Ipratropium) 3 Ml Ampul.neb 3 Ml NEB QID 10/28/18 Rx Tessalon Perle (Benzonatate) 100 Mg Capsule 1 Cap PO TID 10/28/18 Rx Montelukast Sodium Tablet (Montelukast Sodium) 10 Mg Tablet 10 Mg PO QHS 10/28/18 Rx Lidocaine PATCH (Lidocaine) 1 Each Adh..patch 1 Each TP DAILY 30 09/11/18 Rx REMOVE AFTER 12 HOURS Metformin Hcl 500 Mg Tablet 500 Mg PO DAILYWBKFT 09/09/18 Reported Aspirin Ec (Aspirin) 81 Mg Tablet.dr 81 Mg PO DAILYWBKFT 30 08/28/18 Rx Guaifenesin 100 Mg/5 Ml Liquid 200 Mg PO PRN Q4HRS PRN 30 05/30/18 Rx Vitamin D3 (Cholecalciferol (Vitamin D3)) 5,000 Unit Tablet 5,000 Unit PO DAILY 03/15/18 Reported Reglan (Metoclopramide Hcl) 10 Mg Tablet 0.5 Tab PO QID 30 02/14/18 Rx Potassium Chloride (Potassium Chloride) 20 Meq Tablet.er 20 Meq PO DAILY 01/13/18 Reported Protonix (Pantoprazole Sodium) 20 Mg Tablet.dr 2 Tab PO DAILY 11/18/17 Reported Atorvastatin Calcium 10 Mg Tablet 10 Mg PO HS 08/21/17 Reported Symbicort 160-4.5 Mcg Inhaler (Budesonide/Formoterol Fumarate) 10.2 Gm Hfa.aer.ad 2 Puff IH BID 09/21/15 Reported Impression . IMPRESSION:1. Acute on chronic respiratory failure, the patient failed outpatient treatment. 2. Obstructive sleep apnea. 3. History of deep venous thrombosis and pulmonary embolism. 4. Clinical depression. 5. History of vertebral compression fractures. 6. Diabetes with peripheral neuropathy. 7. Hypertension. Plan . BD, NEBS change solumedrol to 40 q 12 hrs add flonase for post nasal drip 02 cont abx DVT AND GI PROPH PT WITH SEVERE COPD FEVI LESS THAN 25% OF PREDICTED discussed w pt, rn TAMAR RING MD May 04, 2019 09:47
[2019-05-04 11:24] VITALS: BP 146/92
--- NOTE | 2019-05-04 12:01 | PDOC ---
PROGRESS NOTES History of Present Illness History of Present Illness VTE Prophylaxis Ordered VTE Prophylaxis Devices: Yes VTE Pharmacological Prophylaxi: Yes Assessment/Plan Assessment/Plan impression 1. Acute on chronic HYPOXIC respiratory failure secondary to acute exacerbation of chronic obstructive pulmonary disease and acute bronchitis. 2. Abnormal chest x-ray. 3. Acute exacerbation of chronic obstructive pulmonary disease. 4. Acute bronchitis. 5. END STAGE LUNG DISEASE 6. Very severe chronic obstructive pulmonary disease., endstage 7. Ex-smoker. 8. back pain 9. old compression fracture in the lower thoracic spine. Plan . 1. Titrate FiO2 to keep O2 saturation 92%. 2. Bronchodilator. 3. Inhaled corticosteroid. 4. steroid taper 5. following PULM 6. Lovenox for deep vein thrombosis prophylaxis. 7. Protonix for stress ulcer prophylaxis. 8. The patient is being evaluated for lung transplant at [facility] 9. Continue not smoking. 10. CONT BIPAP qhs 11. pain control 12. ua 13. miralax 05/03 STILL COARSE, WHEEZING SLOW TO IMPROVE 27 min pt exam, chart review, > 50% of time spent with exam, chart review, pt care coordination Vitals Vitals Vital Signs Date Time Temp Pulse Resp B/P (MAP) Pulse Ox O2 Delivery O2 Flow Rate FiO2 05/04/19 11:24 98.7 82 20 146/92 (110) 96 Nasal Cannula 2.0 98.7 Physical Exam General: Alert, Oriented X3, Cooperative, No acute distress Heart: Regular rate, Normal S1, Normal S2 Lungs: Wheezing, Other (diminished, coarse) Abdomen: Normal bowel sounds, Soft, No tenderness Extremities: No clubbing Skin: No breakdown Labs LABS Laboratory Tests Test 05/03/19 16:36 05/03/19 20:37 05/04/19 07:08 05/04/19 10:12 Glucose (Fingerstick) 170 mg/dL (70-99) 153 mg/dL (70-99) 146 mg/dL (70-99) 228 mg/dL (70-99) Assessment and Plan Assessmemt and Plan Problems Medical Problems: (1) Acute exacerbation of chronic obstructive pulmonary disease (COPD) Status: Acute Comment Review of Relevant I have reviewed the following items franki (where applicable) has been applied. Labs Laboratory Tests Test 05/02/19 16:04 05/02/19 21:33 05/03/19 07:13 05/03/19 10:50 Glucose (Fingerstick) 215 mg/dL (70-99) 158 mg/dL (70-99) 141 mg/dL (70-99) 286 mg/dL (70-99) Test 05/03/19 16:36 05/03/19 20:37 05/04/19 07:08 05/04/19 10:12 Glucose (Fingerstick) 170 mg/dL (70-99) 153 mg/dL (70-99) 146 mg/dL (70-99) 228 mg/dL (70-99) Laboratory Tests Test 05/03/19 16:36 05/03/19 20:37 05/04/19 07:08 05/04/19 10:12 Glucose (Fingerstick) 170 mg/dL (70-99) 153 mg/dL (70-99) 146 mg/dL (70-99) 228 mg/dL (70-99) Medications Current Medications Albuterol Sulfate (Ventolin Neb Soln) 10 mg 1X ONCE CONT NEB Last administered on 04/30/19at 18:12; Start 04/30/19 at 18:00; Stop 04/30/19 at 18:01; Status DC Methylprednisolone Sodium Succinate (SOLU-Medrol 125MG VIAL) 125 mg 1X ONCE IV Last administered on 04/30/19at 18:51; Start 04/30/19 at 18:00; Stop 04/30/19 at 18:01; Status DC Ondansetron HCl (Zofran) 4 mg PRN Q8HRS PRN IV NAUSEA/VOMITING; Start 04/30/19 at 19:45; Stop 05/01/19 at 19:44; Status DC Fentanyl Citrate (Fentanyl 2ml Vial) 50 mcg PRN Q1HR PRN IV PAIN Last administered on 05/01/19at 14:43; Start 04/30/19 at 19:45; Stop 05/01/19 at 19: 44; Status DC Albuterol/ Ipratropium (Duoneb) 3 ml RTQID NEB Last administered on 04/30/19at 20:00; Start 04/30/19 at 20:00; Stop 04/30/19 at 23:47; Status DC Insulin Human Lispro (HumaLOG) 0-5 UNITS TIDWMEALS SQ Last administered on 05/04/19at 11:50; Start 05/01/19 at 08:00 Dextrose (Dextrose 50%-Water Syringe) 12.5 gm PRN Q15MIN PRN IV SEE COMMENTS; Start 04/30/19 at 23:30 Dextrose (Iv Dextrose 5%) 250 ml PRN Q15MIN PRN IV SEE COMMENTS; Start 04/30/19 at 23:30 Methylprednisolone Sodium Succinate (SOLU-Medrol 125MG VIAL) 62.5 mg Q8HRS IV Last administered on 05/03/19at 05:25; Start 05/01/19 at 06:00; Stop 05/03/19 at 08:10; Status DC Ceftriaxone Sodium (Rocephin) 1 gm Q24H IVP Last administered on 05/04/19 01:08; Start 04/30/19 at 23:30 Aspirin (Ecotrin) 81 mg DAILYWBKFT PO Last administered on 05/04/19 08:31; Start 05/01/19 at 08:00 Atorvastatin Calcium (Lipitor) 10 mg HS PO Last administered on 05/03/19 22:20; Start 05/01/19 at 21:00 Benzonatate (Tessalon Perle) 100 mg TID PO Last administered on 05/03/19 22:20; Start 05/01/19 at 09:00 Docusate Sodium (Colace) 100 mg DAILY PO Last administered on 05/04/19 08:30; Start 05/01/19 at 09:00 Ferrous Sulfate (Feosol) 325 mg DAILY PO Last administered on 05/04/19 08:30; Start 05/01/19 at 09:00 Fluticasone Propionate (Flonase) 2 spray DAILY NS Last administered on 05/04/19 08:32; Start 05/01/19 at 09:00 Furosemide (Lasix) 40 mg DAILY PO Last administered on 05/04/19 08:31; Start 05/01/19 at 09:00 Guaifenesin (Robitussin) 200 mg PRN Q4HRS PRN PO COUGH; Start 04/30/19 at 23:30; Stop 05/02/19 at 11:08; Status DC Acetaminophen/ Hydrocodone Bitart (Lortab 10/325) 1 tab PRN Q6HRS PRN PO MODERATE-SEVERE PAIN Last administered on 05/04/19 08:32; Start 04/30/19 at 23:30 Albuterol/ Ipratropium (Duoneb) 3 ml RTQID NEB Last administered on 05/02/19 08:03; Start 05/01/19 at 08:00; Stop 05/02/19 at 11:09; Status DC Lactobacillus Rhamnosus (Culturelle) 1 cap BID PO Last administered on 05/04/19 08:31; Start 05/01/19 at 09:00 Lidocaine (Lidoderm) 1 patch DAILY TP ; Start 05/01/19 at 09:00 Lorazepam (Ativan) 1 mg BID PO ; Start 05/01/19 at 09:00; Stop 05/01/19 at 05:01; Status DC Al Hydroxide/Mg Hydroxide (Mylanta Plus Xs) 30 ml PRN DAILY PRN PO HEARTBURN / GAS; Start 04/30/19 at 23:30; Status Cancel Metformin HCl (Glucophage) 500 mg DAILYWBKFT PO Last administered on 05/04/19at 08:31; Start 05/01/19 at 08:00 Metoclopramide HCl (Reglan) 5 mg QID PO Last administered on 05/04/19at 11:48; Start 05/01/19 at 09:00 Montelukast Sodium (Singulair) 10 mg QHS PO Last administered on 05/03/19at 22:20; Start 05/01/19 at 21:00 Polyethylene Glycol (miraLAX PACKET) 17 gm BID PO Last administered on 05/04/19 08:32; Start 05/01/19 at 09:00 Potassium Chloride (Klor-Con) 20 meq DAILYWBKFT PO Last administered on 05/04/19 08:31; Start 05/01/19 at 08:00 Sodium Chloride (Saline Mist Nasal) 1 angel PRN Q1HR PRN NS NASAL CONGESTION Last administered on 05/01/19at 09:35; Start 04/30/19 at 23:30 Trazodone HCl (Desyrel) 50 mg QHS PO Last administered on 05/03/19 22:19; Start 05/01/19 at 21:00 Vitamin D (Vitamin D3) 5,000 unit DAILY PO Last administered on 05/04/19at 08:30; Start 05/01/19 at 09:00 Pantoprazole Sodium (Protonix) 40 mg DAILYAC PO Last administered on 05/04/19at 08:30; Start 05/01/19 at 07:30 Miscellaneous (Lidoderm Patch Removal) 1 ea QHS MC ; Start 05/01/19 at 21:00 Lorazepam (Ativan) 1 mg Q12H PO Last administered on 05/04/19at 05:32; Start 05/01/19 at 05:00 Albuterol Sulfate (Ventolin Neb Soln) 2.5 mg PRN Q4HRS PRN NEB SHORTNESS OF BREATH Last administered on 05/02/19at 04:20; Start 05/01/19 at 05:15 Sodium Chloride (Normal Saline Flush) 3 ml QSHIFT PRN IV AFTER MEDS AND BLOOD DRAWS; Start 05/01/19 at 10:45 Ondansetron HCl (Zofran) 4 mg PRN Q4HRS PRN IV NAUSEA/VOMITING; Start 05/01/19 at 10:45 Acetaminophen (Tylenol) 650 mg PRN Q4HRS PRN PO TEMP OVER 100.4F OR MILD PAIN; Start 05/01/19 at 10:45 Al Hydroxide/Mg Hydroxide (Mylanta Plus Xs) 30 ml PRN DAILY PRN PO HEARTBURN / GAS; Start 05/01/19 at 10:45 Clonidine HCl (Catapres) 0.1 mg PRN Q6HRS PRN PO SBP>160 OR DBP>90; Start 05/01/19 at 10:45 Docusate Sodium (Colace) 100 mg PRN BID PRN PO CONSTIPATION; Start 05/01/19 at 10:45 Albuterol/ Ipratropium (Duoneb) 3 ml Q4HRS NEB Last administered on 05/04/19at 10:57; Start 05/01/19 at 11:00 Guaifenesin (Robitussin) 200 mg PRN Q4HRS PRN PO COUGH; Start 05/01/19 at 10:45 Enoxaparin Sodium (Lovenox 40mg Syringe) 40 mg Q24H SQ ; Start 05/01/19 at 11:00 Sodium Chloride 1,000 ml @ 75 mls/hr [id number] IV Last administered on 05/04/19at 05:33; Start 05/01/19 at 13:15 Methylprednisolone Sodium Succinate (SOLU-Medrol 40MG VIAL) 40 mg Q8HRS IV Last administered on 05/04/19at 05:33; Start 05/03/19 at 14:00 Guaifenesin (MUCINEX ER with DM) 1 tab BID PO Last administered on 05/04/19at 08:31; Start 05/03/19 at 21:00 Fluticasone Propionate (Flonase) 2 spray DAILY NS ; Start 05/05/19 at 09:00; Status UNV Active Scripts Active Trazodone Hcl 50 Mg Tablet 50 Mg PO QHS 30 Days Proair Hfa Inhaler (Albuterol Sulfate) 8.5 Gm Hfa.aer.ad 2 Puff IH PRN Q4-6HRS PRN 21 Days Mag-Al Plus Xs Suspension (Mag Hydrox/Al Hydrox/Simeth) 30 Ml Oral.susp 30 Ml PO PRN DAILY PRN 10 Days Deep Sea (Sodium Chloride) 44 Ml Sanders 1 Angel NS PRN Q1HR PRN 10 Days Hydrocodone-Apap 10-325 (Hydrocodone Bit/Acetaminophen) 1 Tab Tablet 1 Tab PO PRN Q6HRS PRN Culturelle (Lactobacillus Rhamnosus Gg) 1 Each Cap.sprink 1 Cap PO BID 30 Days Colace (Docusate Sodium) 100 Mg Capsule 100 Mg PO DAILY 30 Days Fluticasone Propionate Nasal Sanders (Fluticasone Propionate) 16 Gm Sanders.susp 2 Sanders NS DAILY 30 Days Miralax (Polyethylene Glycol 3350) 119 Gm Powder 17 Gm PO BID Duoneb 0.5-3(2.5) Mg/3 Ml (Albuterol/Ipratropium) 3 Ml Ampul.neb 3 Ml NEB QID Tessalon Perle (Benzonatate) 100 Mg Capsule 1 Cap PO TID Montelukast Sodium Tablet (Montelukast Sodium) 10 Mg Tablet 10 Mg PO QHS Lidocaine PATCH (Lidocaine) 1 Each Adh..patch 1 Each TP DAILY 30 Days REMOVE AFTER 12 HOURS Aspirin Ec (Aspirin) 81 Mg Tablet.dr 81 Mg PO DAILYWBKFT 30 Days Guaifenesin 100 Mg/5 Ml Liquid 200 Mg PO PRN Q4HRS PRN 30 Days Reglan (Metoclopramide Hcl) 10 Mg Tablet 0.5 Tab PO QID 30 Days Reported Lasix (Furosemide) 40 Mg Tablet 1 Tab PO DAILY 30 Days Feosol (Ferrous Sulfate) 325 Mg Tablet 1 Tab PO DAILY 30 Days Ativan (Lorazepam) 1 Mg Tablet 1 Mg PO BID Metformin Hcl 500 Mg Tablet 500 Mg PO DAILYWBKFT Vitamin D3 (Cholecalciferol (Vitamin D3)) 5,000 Unit Tablet 5,000 Unit PO DAILY Potassium Chloride (Potassium Chloride) 20 Meq Tablet.er 20 Meq PO DAILY Protonix (Pantoprazole Sodium) 20 Mg Tablet.dr 2 Tab PO DAILY Atorvastatin Calcium 10 Mg Tablet 10 Mg PO HS Symbicort 160-4.5 Mcg Inhaler (Budesonide/Formoterol Fumarate) 10.2 Gm H fa.aer.ad 2 Puff IH BID Vitals/I & O Vital Sign - Last 24 Hours 05/03/19 05/03/19 05/03/19 05/03/19 15:31 15:41 19:00 20:00 Temp 98.1 97.7 98.1 97.7 Pulse 71 82 Resp 18 22 B/P (MAP) 128/74 (92) 146/90 (108) Pulse Ox 94 95 98 O2 Delivery Nasal Cannula Nasal Cannula Nasal Cannula Nasal Cannula O2 Flow Rate 2.0 3.0 2.0 3.0 05/03/19 05/03/19 05/03/19 05/04/19 20:16 20:31 23:00 00:12 Temp 97.8 97.8 Pulse 66 Resp 18 B/P (MAP) 116/95 (102) Pulse Ox 96 95 O2 Delivery Nasal Cannula AP NEB Nasal Cannula Nasal Cannula O2 Flow Rate 3.0 8.0 2.0 3.0 05/04/19 05/04/19 05/04/19 05/04/19 04:15 07:15 07:19 08:00 Temp 98.9 98.9 Pulse 74 Resp 22 B/P (MAP) 151/101 (118) Pulse Ox 95 97 95 O2 Delivery Nasal Cannula Nasal Cannula Nasal Cannula Nasal Cannula O2 Flow Rate 3.0 2.0 3.0 3.0 05/04/19 05/04/19 10:57 11:24 Temp 98.7 98.7 Pulse 82 Resp 20 B/P (MAP) 146/92 (110) Pulse Ox 95 96 O2 Delivery Nasal Cannula Nasal Cannula O2 Flow Rate 3.0 2.0 Intake and Output 305/03/19 05/04/19 15:00 23:00 07:00 Intake Total 460 ml 600 ml 200 ml Output Total 700 ml 350 ml Balance -240 ml 250 ml 200 ml Nutrition Consultation Dietary Evaluation: Recommendations by RD: Dietary education by RD, Increase Calorie Intake, Protein supplementation Comments: ADA/Cardiac diet Glucerna tid Expected Outcomes/Goals: to meet >75% est nutr needs Malnutrition Findings: Body Fat Depletion (Non Severe: Mild Depletion Weight Status: Appropriate TOMAS BAIG MD May 04, 2019 12:01
[2019-05-04 15:04] VITALS: BP 152/91
[2019-05-04 19:00] VITALS: BP 126/77
[2019-05-04] MEDS: traZODone 50 MG TABLET. PO SCH (20:49)
[2019-05-04] MEDS: ATORVASTATIN CALCIUM 10 MG TABLET. PO SCH (20:50)
[2019-05-04] MEDS: PATCH REMOVAL. MC SCH (20:50)
[2019-05-04] MEDS: MONTELUKAST SODIUM 10 MG TABLET. PO SCH (20:50)
[2019-05-04 23:06] VITALS: BP 131/87
[2019-05-05] MEDS: cefTRIAXone IV Push 1 GM VIAL. IVP SCH (00:01)
[2019-05-05] MEDS: IPRATRPIUM/ALBUTEROL 0.5/2.5MG 3 ML NEBU. NEB SCH ×6 (00:31→21:14)
[2019-05-05 03:11] VITALS: BP 148/84
[2019-05-05 04:15] LABS: BASO % 0 % (0-3); EOS % 0 % (0-3); HEMOGLOBIN 11.3 g/dL (13.0-17.5); LYMPH # 0.2 x10^3/uL (1.0-4.8); LYMPH % 2 % (24-48); MEAN CORPUSCULAR HEMOGLOBIN 30 pg (25-35); MEAN CORPUSCULAR HGB CONC 33 g/dL (31-37); MEAN CORPUSCULAR VOLUME 88 fL (79-100); MONO # 0.4 x10^3/uL (0.0-1.1); MONO % 4 % (0-9); NEUT # 9.7 x10^3/uL (1.8-7.7); NEUT % 94 % (31-73); PLATELET COUNT 191 x10^3/uL (140-400); RED BLOOD COUNT 3.85 x10^6/uL (4.30-5.70); WHITE BLOOD COUNT 10.4 x10^3/uL (4.0-11.0)
[2019-05-05 04:25] LABS: CALCIUM 9.4 mg/dL (8.5-10.1); CREATININE 0.7 mg/dL (0.7-1.3); GFR 139.7; POTASSIUM 4.4 mmol/L (3.5-5.1)
[2019-05-05] MEDS: LORazepam 1 MG TABLET PO SCH ×2 (06:25→16:40)
[2019-05-05 07:39] VITALS: BP 161/89
[2019-05-05] MEDS: INSULIN LISPRO 300 UNITS/3 ML VIAL. SQ SCH ×3 (07:44→16:53)
[2019-05-05] MEDS: ENOXAPARIN 40 MG/0.4 ML SYRINGE. SQ SCH (08:15)
[2019-05-05] MEDS: LIDOCAINE (700MG/PATCH) PATCH. TP SCH (08:15)
[2019-05-05] MEDS: DOCUSATE SODIUM 100 MG CAPSULE. PO SCH (08:16)
[2019-05-05] MEDS: BENZONATATE 100 MG CAPSULE. PO SCH ×3 (08:17→20:35)
[2019-05-05] MEDS: methylPREDNISolone SOD SUCC PF 40 MG/ML VIAL. IV SCH ×2 (08:18→20:35)
[2019-05-05] MEDS: ASPIRIN ENTERIC COATED 81 MG TABLET.DR. PO SCH (08:18)
[2019-05-05] MEDS: POLYETHYLENE GLYCOL 3350 17 GM PACKET. PO SCH ×2 (08:18→20:36)
[2019-05-05] MEDS: guaiFENesin DM 600/30MG 1 TAB TAB.ER.12H PO SCH ×2 (08:18→21:00)
[2019-05-05] MEDS: CHOLECALCIFEROL (VITAMIN D3) 5,000 UNIT CAPSULE PO SCH (08:19)
[2019-05-05] MEDS: POTASSIUM CHLORIDE 20 MEQ TABLET.ER. PO SCH (08:19)
[2019-05-05] MEDS: LACTOBACILLUS RHAMNOSUS GG 1 CAPSULE. PO SCH ×2 (08:19→20:35)
[2019-05-05] MEDS: FERROUS SULFATE 325 MG TABLET. PO SCH (08:19)
[2019-05-05] MEDS: metFORMIN 500 MG TABLET PO SCH (08:19)
[2019-05-05] MEDS: PANTOPRAZOLE 40 MG TABLET.DR. PO SCH (08:19)
[2019-05-05] MEDS: FUROSEMIDE 40 MG TABLET. PO SCH (08:20)
[2019-05-05] MEDS: METOCLOPRAMIDE 10 MG TABLET. PO SCH ×4 (08:20→20:34)
[2019-05-05] MEDS: HYDROcodone/APAP 10/325 1 TAB TABLET PO PRN ×3 (08:27→20:35)
--- NOTE | 2019-05-05 08:27 | PDOC ---
PULMONARY PROGRESS NOTES Subjective PT STILL SOA Vitals Vital Signs Date Time Temp Pulse Resp B/P (MAP) Pulse Ox O2 Delivery O2 Flow Rate FiO2 05/05/19 07:54 95 Nasal Cannula 3.0 05/05/19 07:39 98.0 64 20 161/89 (113) 98.0 ROS: No Nausea, No Chest Pain, No Abdominal Pain, No Increase Cough General: Alert Lungs: Other (diminished, coarse, a few end exp wheezing) Cardiovascular: S1, S2 Abdomen: Soft, Non-tender Neuro Exam: Alert Extremities: No Edema Skin: Warm Labs Laboratory Tests Test 05/03/19 10:50 05/03/19 16:36 05/03/19 20:37 05/04/19 07:08 Glucose (Fingerstick) 286 mg/dL (70-99) 170 mg/dL (70-99) 153 mg/dL (70-99) 146 mg/dL (70-99) Test 05/04/19 10:12 05/04/19 15:59 05/04/19 20:31 05/05/19 03:40 Glucose (Fingerstick) 228 mg/dL (70-99) 130 mg/dL (70-99) 243 mg/dL (70-99) White Blood Count 10.4 x10^3/uL (4.0-11.0) Red Blood Count 3.85 x10^6/uL (4.30-5.70) Hemoglobin 11.3 g/dL (13.0-17.5) Hematocrit 34.0 % (39.0-53.0) Mean Corpuscular Volume 88 fL (79-100) Mean Corpuscular Hemoglobin 30 pg (25-35) Mean Corpuscular Hemoglobin Concent 33 g/dL (31-37) Red Cell Distribution Width 15.0 % (11.5-14.5) Platelet Count 191 x10^3/uL (140-400) Neutrophils (%) (Auto) 94 % (31-73) Lymphocytes (%) (Auto) 2 % (24-48) Monocytes (%) (Auto) 4 % (0-9) Eosinophils (%) (Auto) 0 % (0-3) Basophils (%) (Auto) 0 % (0-3) Neutrophils # (Auto) 9.7 x10^3/uL (1.8-7.7) Lymphocytes # (Auto) 0.2 x10^3/uL (1.0-4.8) Monocytes # (Auto) 0.4 x10^3/uL (0.0-1.1) Eosinophils # (Auto) 0.0 x10^3/uL (0.0-0.7) Basophils # (Auto) 0.0 x10^3/uL (0.0-0.2) Sodium Level 138 mmol/L (136-145) Potassium Level 4.4 mmol/L (3.5-5.1) Chloride Level 100 mmol/L (98-107) Carbon Dioxide Level 33 mmol/L (21-32) Anion Gap 5 (6-14) Blood Urea Nitrogen 19 mg/dL (8-26) Creatinine 0.7 mg/dL (0.7-1.3) Estimated GFR (Cockcroft-Gault) 139.7 Glucose Level 206 mg/dL (70-99) Calcium Level 9.4 mg/dL (8.5-10.1) Test 05/05/19 07:27 Glucose (Fingerstick) 117 mg/dL (70-99) Laboratory Tests Test 05/04/19 10:12 05/04/19 15:59 05/04/19 20:31 05/05/19 03:40 Glucose (Fingerstick) 228 mg/dL (70-99) 130 mg/dL (70-99) 243 mg/dL (70-99) White Blood Count 10.4 x10^3/uL (4.0-11.0) Red Blood Count 3.85 x10^6/uL (4.30-5.70) Hemoglobin 11.3 g/dL (13.0-17.5) Hematocrit 34.0 % (39.0-53.0) Mean Corpuscular Volume 88 fL (79-100) Mean Corpuscular Hemoglobin 30 pg (25-35) Mean Corpuscular Hemoglobin Concent 33 g/dL (31-37) Red Cell Distribution Width 15.0 % (11.5-14.5) Platelet Count 191 x10^3/uL (140-400) Neutrophils (%) (Auto) 94 % (31-73) Lymphocytes (%) (Auto) 2 % (24-48) Monocytes (%) (Auto) 4 % (0-9) Eosinophils (%) (Auto) 0 % (0-3) Basophils (%) (Auto) 0 % (0-3) Neutrophils # (Auto) 9.7 x10^3/uL (1.8-7.7) Lymphocytes # (Auto) 0.2 x10^3/uL (1.0-4.8) Monocytes # (Auto) 0.4 x10^3/uL (0.0-1.1) Eosinophils # (Auto) 0.0 x10^3/uL (0.0-0.7) Basophils # (Auto) 0.0 x10^3/uL (0.0-0.2) Sodium Level 138 mmol/L (136-145) Potassium Level 4.4 mmol/L (3.5-5.1) Chloride Level 100 mmol/L (98-107) Carbon Dioxide Level 33 mmol/L (21-32) Anion Gap 5 (6-14) Blood Urea Nitrogen 19 mg/dL (8-26) Creatinine 0.7 mg/dL (0.7-1.3) Estimated GFR (Cockcroft-Gault) 139.7 Glucose Level 206 mg/dL (70-99) Calcium Level 9.4 mg/dL (8.5-10.1) Test 05/05/19 07:27 Glucose (Fingerstick) 117 mg/dL (70-99) Medications Active Scripts Medications Dose Route/Sig Max Daily Dose Days Date Category Dose Instructions Trazodone Hcl 50 Mg Tablet 50 Mg PO QHS 30 03/14/19 Rx Proair Hfa Inhaler (Albuterol Sulfate) 8.5 Gm Hfa.aer.ad 2 Puff IH PRN Q4-6HRS PRN 21 01/17/19 Rx Lasix (Furosemide) 40 Mg Tablet 1 Tab PO DAILY 30 01/09/19 Reported Feosol (Ferrous Sulfate) 325 Mg Tablet 1 Tab PO DAILY 30 01/09/19 Reported Mag-Al Plus Xs Suspension (Mag Hydrox/Al Hydrox/Simeth) 30 Ml Oral.susp 30 Ml PO PRN DAILY PRN 10 12/31/18 Rx Deep Sea (Sodium Chloride) 44 Ml Morgan 1 Angel NS PRN Q1HR PRN 10 12/31/18 Rx Hydrocodone-Apap 10-325 (Hydrocodone Bit/Acetaminophen) 1 Tab Tablet 1 Tab PO PRN Q6HRS PRN 12/22/18 Rx Ativan (Lorazepam) 1 Mg Tablet 1 Mg PO BID 12/20/18 Reported Culturelle (Lactobacillus Rhamnosus Gg) 1 Each Cap.sprink 1 Cap PO BID 30 11/11/18 Rx Colace (Docusate Sodium) 100 Mg Capsule 100 Mg PO DAILY 30 11/11/18 Rx Fluticasone Propionate Nasal Morgan (Fluticasone Propionate) 16 Gm Morgan.susp 2 Morgan NS DAILY 30 11/11/18 Rx Miralax (Polyethylene Glycol 3350) 119 Gm Powder 17 Gm PO BID 11/03/18 Rx Duoneb 0.5-3(2.5) Mg/3 Ml (Albuterol/Ipratropium) 3 Ml Ampul.neb 3 Ml NEB QID 10/28/18 Rx Tessalon Perle (Benzonatate) 100 Mg Capsule 1 Cap PO TID 10/28/18 Rx Montelukast Sodium Tablet (Montelukast Sodium) 10 Mg Tablet 10 Mg PO QHS 10/28/18 Rx Lidocaine PATCH (Lidocaine) 1 Each Adh..patch 1 Each TP DAILY 30 09/11/18 Rx REMOVE AFTER 12 HOURS Metformin Hcl 500 Mg Tablet 500 Mg PO DAILYWBKFT 09/09/18 Reported Aspirin Ec (Aspirin) 81 Mg Tablet.dr 81 Mg PO DAILYWBKFT 30 08/28/18 Rx Guaifenesin 100 Mg/5 Ml Liquid 200 Mg PO PRN Q4HRS PRN 30 05/30/18 Rx Vitamin D3 (Cholecalciferol (Vitamin D3)) 5,000 Unit Tablet 5,000 Unit PO DAILY 03/15/18 Reported Reglan (Metoclopramide Hcl) 10 Mg Tablet 0.5 Tab PO QID 30 02/14/18 Rx Potassium Chloride (Potassium Chloride) 20 Meq Tablet.er 20 Meq PO DAILY 01/13/18 Reported Protonix (Pantoprazole Sodium) 20 Mg Tablet.dr 2 Tab PO DAILY 11/18/17 Reported Atorvastatin Calcium 10 Mg Tablet 10 Mg PO HS 08/21/17 Reported Symbicort 160-4.5 Mcg Inhaler (Budesonide/Formoterol Fumarate) 10.2 Gm Hfa.aer.ad 2 Puff IH BID 09/21/15 Reported Impression . IMPRESSION:1. Acute on chronic respiratory failure, the patient failed outpatient treatment. 2. Obstructive sleep apnea. 3. History of deep venous thrombosis and pulmonary embolism. 4. Clinical depression. 5. History of vertebral compression fractures. 6. Diabetes with peripheral neuropathy. 7. Hypertension. Plan . STILL VERY SOA USING ACCESSORY MUSCLE AT TIMES TO BREATH HOPE TO DC IN AM DVT AND GI PROPH PT WITH SEVERE COPD FEVI LESS THAN 25% OF PREDICTED SCOTT COOK MD May 05, 2019 08:27
[2019-05-05] MEDS ORDERED: FLUTICASONE 50MCG/NASAL SPRAY 16GM BOTTLE. NS SCH (09:00)
[2019-05-05] MEDS: FLUTICASONE 50MCG/NASAL SPRAY 16GM BOTTLE. NS SCH (09:00)
--- NOTE | 2019-05-05 10:17 | PDOC ---
PROGRESS NOTES History of Present Illness History of Present Illness VTE Prophylaxis Ordered VTE Prophylaxis Devices: Yes VTE Pharmacological Prophylaxi: Yes Assessment/Plan Assessment/Plan impression 1. Acute on chronic HYPOXIC respiratory failure secondary to acute exacerbation of chronic obstructive pulmonary disease and acute bronchitis. 2. Abnormal chest x-ray. 3. Acute exacerbation of chronic obstructive pulmonary disease. 4. Acute bronchitis. 5. END STAGE LUNG DISEASE 6. Very severe chronic obstructive pulmonary disease., endstage 7. Ex-smoker. 8. back pain 9. old compression fracture in the lower thoracic spine. Plan . 1. Titrate FiO2 to keep O2 saturation 92%. 2. Bronchodilator. 3. Inhaled corticosteroid. 4. steroid taper 5. following PULM 6. Lovenox for deep vein thrombosis prophylaxis. 7. Protonix for stress ulcer prophylaxis. 8. The patient is being evaluated for lung transplant at [facility] 9. Continue not smoking. 10. CONT BIPAP qhs 11. pain control 12. ua 13. miralax 05/03 STILL COARSE, WHEEZING SLOW TO IMPROVE 27 min pt exam, chart review, > 50% of time spent with exam, chart review, pt care coordination Vitals Vitals Vital Signs Date Time Temp Pulse Resp B/P (MAP) Pulse Ox O2 Delivery O2 Flow Rate FiO2 05/05/19 09:27 Nasal Cannula 05/05/19 08:00 3.0 05/05/19 07:54 95 05/05/19 07:39 98.0 64 20 161/89 (113) 98.0 Physical Exam General: Alert, Oriented X3, Cooperative, No acute distress Heart: Regular rate, Normal S1, Normal S2 Lungs: Other (diminished, coarse, a few end exp wheezing) Abdomen: Normal bowel sounds, Soft, No tenderness Extremities: No clubbing Skin: No breakdown Labs LABS Laboratory Tests Test 05/04/19 15:59 05/04/19 20:31 05/05/19 03:40 05/05/19 07:27 Glucose (Fingerstick) 130 mg/dL (70-99) 243 mg/dL (70-99) 117 mg/dL (70-99) White Blood Count 10.4 x10^3/uL (4.0-11.0) Red Blood Count 3.85 x10^6/uL (4.30-5.70) Hemoglobin 11.3 g/dL (13.0-17.5) Hematocrit 34.0 % (39.0-53.0) Mean Corpuscular Volume 88 fL (79-100) Mean Corpuscular Hemoglobin 30 pg (25-35) Mean Corpuscular Hemoglobin Concent 33 g/dL (31-37) Red Cell Distribution Width 15.0 % (11.5-14.5) Platelet Count 191 x10^3/uL (140-400) Neutrophils (%) (Auto) 94 % (31-73) Lymphocytes (%) (Auto) 2 % (24-48) Monocytes (%) (Auto) 4 % (0-9) Eosinophils (%) (Auto) 0 % (0-3) Basophils (%) (Auto) 0 % (0-3) Neutrophils # (Auto) 9.7 x10^3/uL (1.8-7.7) Lymphocytes # (Auto) 0.2 x10^3/uL (1.0-4.8) Monocytes # (Auto) 0.4 x10^3/uL (0.0-1.1) Eosinophils # (Auto) 0.0 x10^3/uL (0.0-0.7) Basophils # (Auto) 0.0 x10^3/uL (0.0-0.2) Sodium Level 138 mmol/L (136-145) Potassium Level 4.4 mmol/L (3.5-5.1) Chloride Level 100 mmol/L (98-107) Carbon Dioxide Level 33 mmol/L (21-32) Anion Gap 5 (6-14) Blood Urea Nitrogen 19 mg/dL (8-26) Creatinine 0.7 mg/dL (0.7-1.3) Estimated GFR (Cockcroft-Gault) 139.7 Glucose Level 206 mg/dL (70-99) Calcium Level 9.4 mg/dL (8.5-10.1) Assessment and Plan Assessmemt and Plan Problems Medical Problems: (1) Acute exacerbation of chronic obstructive pulmonary disease (COPD) Status: Acute Comment Review of Relevant I have reviewed the following items franki (where applicable) has been applied. Labs Laboratory Tests Test 05/03/19 10:50 05/03/19 16:36 05/03/19 20:37 05/04/19 07:08 Glucose (Fingerstick) 286 mg/dL (70-99) 170 mg/dL (70-99) 153 mg/dL (70-99) 146 mg/dL (70-99) Test 05/04/19 10:12 05/04/19 15:59 05/04/19 20:31 05/05/19 03:40 Glucose (Fingerstick) 228 mg/dL (70-99) 130 mg/dL (70-99) 243 mg/dL (70-99) White Blood Count 10.4 x10^3/uL (4.0-11.0) Red Blood Count 3.85 x10^6/uL (4.30-5.70) Hemoglobin 11.3 g/dL (13.0-17.5) Hematocrit 34.0 % (39.0-53.0) Mean Corpuscular Volume 88 fL (79-100) Mean Corpuscular Hemoglobin 30 pg (25-35) Mean Corpuscular Hemoglobin Concent 33 g/dL (31-37) Red Cell Distribution Width 15.0 % (11.5-14.5) Platelet Count 191 x10^3/uL (140-400) Neutrophils (%) (Auto) 94 % (31-73) Lymphocytes (%) (Auto) 2 % (24-48) Monocytes (%) (Auto) 4 % (0-9) Eosinophils (%) (Auto) 0 % (0-3) Basophils (%) (Auto) 0 % (0-3) Neutrophils # (Auto) 9.7 x10^3/uL (1.8-7.7) Lymphocytes # (Auto) 0.2 x10^3/uL (1.0-4.8) Monocytes # (Auto) 0.4 x10^3/uL (0.0-1.1) Eosinophils # (Auto) 0.0 x10^3/uL (0.0-0.7) Basophils # (Auto) 0.0 x10^3/uL (0.0-0.2) Sodium Level 138 mmol/L (136-145) Potassium Level 4.4 mmol/L (3.5-5.1) Chloride Level 100 mmol/L (98-107) Carbon Dioxide Level 33 mmol/L (21-32) Anion Gap 5 (6-14) Blood Urea Nitrogen 19 mg/dL (8-26) Creatinine 0.7 mg/dL (0.7-1.3) Estimated GFR (Cockcroft-Gault) 139.7 Glucose Level 206 mg/dL (70-99) Calcium Level 9.4 mg/dL (8.5-10.1) Test 05/05/19 07:27 Glucose (Fingerstick) 117 mg/dL (70-99) Laboratory Tests Test 05/04/19 15:59 05/04/19 20:31 05/05/19 03:40 05/05/19 07:27 Glucose (Fingerstick) 130 mg/dL (70-99) 243 mg/dL (70-99) 117 mg/dL (70-99) White Blood Count 10.4 x10^3/uL (4.0-11.0) Red Blood Count 3.85 x10^6/uL (4.30-5.70) Hemoglobin 11.3 g/dL (13.0-17.5) Hematocrit 34.0 % (39.0-53.0) Mean Corpuscular Volume 88 fL (79-100) Mean Corpuscular Hemoglobin 30 pg (25-35) Mean Corpuscular Hemoglobin Concent 33 g/dL (31-37) Red Cell Distribution Width 15.0 % (11.5-14.5) Platelet Count 191 x10^3/uL (140-400) Neutrophils (%) (Auto) 94 % (31-73) Lymphocytes (%) (Auto) 2 % (24-48) Monocytes (%) (Auto) 4 % (0-9) Eosinophils (%) (Auto) 0 % (0-3) Basophils (%) (Auto) 0 % (0-3) Neutrophils # (Auto) 9.7 x10^3/uL (1.8-7.7) Lymphocytes # (Auto) 0.2 x10^3/uL (1.0-4.8) Monocytes # (Auto) 0.4 x10^3/uL (0.0-1.1) Eosinophils # (Auto) 0.0 x10^3/uL (0.0-0.7) Basophils # (Auto) 0.0 x10^3/uL (0.0-0.2) Sodium Level 138 mmol/L (136-145) Potassium Level 4.4 mmol/L (3.5-5.1) Chloride Level 100 mmol/L (98-107) Carbon Dioxide Level 33 mmol/L (21-32) Anion Gap 5 (6-14) Blood Urea Nitrogen 19 mg/dL (8-26) Creatinine 0.7 mg/dL (0.7-1.3) Estimated GFR (Cockcroft-Gault) 139.7 Glucose Level 206 mg/dL (70-99) Calcium Level 9.4 mg/dL (8.5-10.1) Medications Current Medications Albuterol Sulfate (Ventolin Neb Soln) 10 mg 1X ONCE CONT NEB Last administered on 04/30/19at 18:12; Start 04/30/19 at 18:00; Stop 04/30/19 at 18:01; Status DC Methylprednisolone Sodium Succinate (SOLU-Medrol 125MG VIAL) 125 mg 1X ONCE IV Last administered on 04/30/19at 18:51; Start 04/30/19 at 18:00; Stop 04/30/19 at 18:01; Status DC Ondansetron HCl (Zofran) 4 mg PRN Q8HRS PRN IV NAUSEA/VOMITING; Start 04/30/19 at 19:45; Stop 05/01/19 at 19:44; Status DC Fentanyl Citrate (Fentanyl 2ml Vial) 50 mcg PRN Q1HR PRN IV PAIN Last administered on 05/01/19at 14:43; Start 04/30/19 at 19:45; Stop 05/01/19 at 19:44; Status DC Albuterol/ Ipratropium (Duoneb) 3 ml RTQID NEB Last administered on 04/30/19at 20:00; Start 04/30/19 at 20:00; Stop 04/30/19 at 23:47; Status DC Insulin Human Lispro (HumaLOG) 0-5 UNITS TIDWMEALS SQ Last administered on 05/04/19at 11:50; Start 05/01/19 at 08:00 Dextrose (Dextrose 50%-Water Syringe) 12.5 gm PRN Q15MIN PRN IV SEE COMMENTS; Start 04/30/19 at 23:30 Dextrose (Iv Dextrose 5%) 250 ml PRN Q15MIN PRN IV SEE COMMENTS; Start 04/30/19 at 23:30 Methylprednisolone Sodium Succinate (SOLU-Medrol 125MG VIAL) 62.5 mg Q8HRS IV Last administered on 05/03/19 05:25; Start 05/01/19 at 06:00; Stop 05/03/19 at 08:10; Status DC Ceftriaxone Sodium (Rocephin) 1 gm Q24H IVP Last administered on 05/05/19at 00:01; Start 04/30/19 at 23:30 Aspirin (Ecotrin) 81 mg DAILYWBKFT PO Last administered on 05/05/19 08:18; Start 05/01/19 at 08:00 Atorvastatin Calcium (Lipitor) 10 mg HS PO Last administered on 05/04/19at 20:50; Start 05/01/19 at 21:00 Benzonatate (Tessalon Perle) 100 mg TID PO Last administered on 05/03/19 22:20 ; Start 05/01/19 at 09:00 Docusate Sodium (Colace) 100 mg DAILY PO Last administered on 05/04/19 08:30; Start 05/01/19 at 09:00 Ferrous Sulfate (Feosol) 325 mg DAILY PO Last administered on 05/05/19 08:19; Start 05/01/19 at 09:00 Fluticasone Propionate (Flonase) 2 spray DAILY NS Last administered on 05/04/19 08:32; Start 05/01/19 at 09:00 Furosemide (Lasix) 40 mg DAILY PO Last administered on 05/05/19 08:20; Start 05/01/19 at 09:00 Guaifenesin (Robitussin) 200 mg PRN Q4HRS PRN PO COUGH; Start 04/30/19 at 23:30; Stop 05/02/19 at 11:08; Status DC Acetaminophen/ Hydrocodone Bitart (Lortab 10/325) 1 tab PRN Q6HRS PRN PO MODER ATE-SEVERE PAIN Last administered on 05/05/19 08:27; Start 04/30/19 at 23:30 Albuterol/ Ipratropium (Duoneb) 3 ml RTQID NEB Last administered on 05/02/19 08:03; Start 05/01/19 at 08:00; Stop 05/02/19 at 11:09; Status DC Lactobacillus Rhamnosus (Culturelle) 1 cap BID PO Last administered on 05/05/19 08:19; Start 05/01/19 at 09:00 Lidocaine (Lidoderm) 1 patch DAILY TP ; Start 05/01/19 at 09:00 Lorazepam (Ativan) 1 mg BID PO ; Start 05/01/19 at 09:00; Stop 05/01/19 at 05:01; Status DC Al Hydroxide/Mg Hydroxide (Mylanta Plus Xs) 30 ml PRN DAILY PRN PO HEARTBURN / GAS; Start 04/30/19 at 23:30; Status Cancel Metformin HCl (Glucophage) 500 mg DAILYWBKFT PO Last administered on 05/05/19 08:19; Start 05/01/19 at 08:00 Metoclopramide HCl (Reglan) 5 mg QID PO Last administered on 05/05/19 08:20; Start 05/01/19 at 09:00 Montelukast Sodium (Singulair) 10 mg QHS PO Last administered on 05/04/19at 20:50; Start 05/01/19 at 21:00 Polyethylene Glycol (miraLAX PACKET) 17 gm BID PO Last administered on 05/05/19at 08:18; Start 05/01/19 at 09:00 Potassium Chloride (Klor-Con) 20 meq DAILYWBKFT PO Last administered on 05/05/19 08:19; Start 05/01/19 at 08:00 Sodium Chloride (Saline Mist Nasal) 1 angel PRN Q1HR PRN NS NASAL CONGESTION Last administered on 05/01/19at 09:35; Start 04/30/19 at 23:30 Trazodone HCl (Desyrel) 50 mg QHS PO Last administered on 05/04/19at 20:49; Start 05/01/19 at 21:00 Vitamin D (Vitamin D3) 5,000 unit DAILY PO Last administered on 05/05/19 08:19; Start 05/01/19 at 09:00 Pantoprazole Sodium (Protonix) 40 mg DAILYAC PO Last administered on 05/05/19 08:19; Start 05/01/19 at 07:30 Miscellaneous (Lidoderm Patch Removal) 1 ea QHS MC ; Start 05/01/19 at 21:00 Lorazepam (Ativan) 1 mg Q12H PO Last administered on 05/05/19 06:25; Start 05/01/19 at 05:00 Albuterol Sulfate (Ventolin Neb Soln) 2.5 mg PRN Q4HRS PRN NEB SHORTNESS OF BREATH Last administered on 05/02/19at 04:20; Start 05/01/19 at 05:15 Sodium Chloride (Normal Saline Flush) 3 ml QSHIFT PRN IV AFTER MEDS AND BLOOD DRAWS; Start 05/01/19 at 10:45 Ondansetron HCl (Zofran) 4 mg PRN Q4HRS PRN IV NAUSEA/VOMITING; Start 05/01/19 at 10:45 Acetaminophen (Tylenol) 650 mg PRN Q4HRS PRN PO TEMP OVER 100.4F OR MILD PAIN; Start 05/01/19 at 10:45 Al Hydroxide/Mg Hydroxide (Mylanta Plus Xs) 30 ml PRN DAILY PRN PO HEARTBURN / GAS; Start 05/01/19 at 10:45 Clonidine HCl (Catapres) 0.1 mg PRN Q6HRS PRN PO SBP>160 OR DBP>90; Start 04/30 at 10:45 Docusate Sodium (Colace) 100 mg PRN BID PRN PO CONSTIPATION; Start 05/01/19 at 10:45 Albuterol/ Ipratropium (Duoneb) 3 ml Q4HRS NEB Last administered on 05/05/19at 07:53; Start 05/01/19 at 11:00 Guaifenesin (Robitussin) 200 mg PRN Q4HRS PRN PO COUGH; Start 05/01/19 at 10:45 Enoxaparin Sodium (Lovenox 40mg Syringe) 40 mg Q24H SQ ; Start 05/01/19 at 11:00 Sodium Chloride 1,000 ml @ 75 mls/hr [id number] IV Last administered on 05/04/19at 05:33; Start 05/01/19 at 13:15; Stop 05/05/19 at 07:29; Status DC Methylprednisolone Sodium Succinate (SOLU-Medrol 40MG VIAL) 40 mg Q8HRS IV Last administered on 05/04/19at 13:50; Start 05/03/19 at 14:00; Stop 05/04/19 at 14:57; Status DC Guaifenesin (MUCINEX ER with DM) 1 tab BID PO Last administered on 05/05/19at 08:18; Start 05/03/19 at 21:00 Fluticasone Propionate (Flonase) 2 spray DAILY NS ; Start 05/05/19 at 09:00; Status UNV Methylprednisolone Sodium Succinate (SOLU-Medrol 40MG VIAL) 40 mg Q12HR IV Last administered on 05/05/19at 08:18; Start 05/04/19 at 21:00 Active Scripts Active Trazodone Hcl 50 Mg Tablet 50 Mg PO QHS 30 Days Proair Hfa Inhaler (Albuterol Sulfate) 8.5 Gm Hfa.aer.ad 2 Puff IH PRN Q4-6HRS PRN 21 Days Mag-Al Plus Xs Suspension (Mag Hydrox/Al Hydrox/Simeth) 30 Ml Oral.susp 30 Ml PO PRN DAILY PRN 10 Days [place] (Sodium Chloride) 44 Ml [place] 1 Angel NS PRN Q1HR PRN 10 Days Hydrocodone-Apap 10-325 (Hydrocodone Bit/Acetaminophen) 1 Tab Tablet 1 Tab PO PRN Q6HRS PRN Culturelle (Lactobacillus Rhamnosus Gg) 1 Each Cap.sprink 1 Cap PO BID 30 Days Colace (Docusate Sodium) 100 Mg Capsule 100 Mg PO DAILY 30 Days Fluticasone Propionate Nasal [place] (Fluticasone Propionate) 16 Gm [place].susp 2 [place] NS DAILY 30 Days Miralax (Polyethylene Glycol 3350) 119 Gm Powder 17 Gm PO BID Duoneb 0.5-3(2.5) Mg/3 Ml (Albuterol/Ipratropium) 3 Ml Amp[place].neb 3 Ml NEB QID Tessalon Perle (Benzonatate) 100 Mg Capsule 1 Cap PO TID Montelukast Sodium Tablet (Montelukast Sodium) 10 Mg Tablet 10 Mg PO QHS Lidocaine PATCH (Lidocaine) 1 Each Adh..patch 1 Each TP DAILY 30 Days REMOVE AFTER 12 HOURS Aspirin Ec (Aspirin) 81 Mg Tablet.dr 81 Mg PO DAILYWBKFT 30 Days Guaifenesin 100 Mg/5 Ml Liquid 200 Mg PO PRN Q4HRS PRN 30 Days Reglan (Metoclopramide Hcl) 10 Mg Tablet 0.5 Tab PO QID 30 Days Reported Lasix (Furosemide) 40 Mg Tablet 1 Tab PO DAILY 30 Days Feosol (Ferrous Sulfate) 325 Mg Tablet 1 Tab PO DAILY 30 Days Ativan (Lorazepam) 1 Mg Tablet 1 Mg PO BID Metformin Hcl 500 Mg Tablet 500 Mg PO DAILYWBKFT Vitamin D3 (Cholecalciferol (Vitamin D3)) 5,000 Unit Tablet 5,000 Unit PO DAILY Potassium Chloride (Potassium Chloride) 20 Meq Tablet.er 20 Meq PO DAILY Protonix (Pantoprazole Sodium) 20 Mg Tablet.dr 2 Tab PO DAILY Atorvastatin Calcium 10 Mg Tablet 10 Mg PO HS Symbicort 160-4.5 Mcg Inhaler (Budesonide/Formoterol Fumarate) 10.2 Gm Hfa.aer.ad 2 Puff IH BID Vitals/I & O Vital Sign - Last 24 Hours 05/04/19 05/04/19 05/04/19 05/04/19 10:57 11:24 15:04 15:25 Temp 98.7 98.6 98.7 98.6 Pulse 82 80 Resp 20 20 B/P (MAP) 146/92 (110) 152/91 (111) Pulse Ox 95 96 98 O2 Delivery Nasal Cannula Nasal Cannula Nasal Cannula Nasal Cannula O2 Flow Rate 3.0 2.0 2.0 3.0 05/04/19 05/04/19 05/04/19 05/04/19 19:00 20:00 20:50 21:50 Temp 98.7 98.7 Pulse 85 Resp 20 B/P (MAP) 126/77 (93) Pulse Ox 97 O2 Delivery Nasal Cannula Nasal Cannula Nasal Cannula Nasal Cannula O2 Flow Rate 3.0 05/04/19 05/05/19 05/05/19 05/05/19 23:06 00:31 03:11 03:46 Temp 98.1 98.3 98.1 98.3 Pulse 72 68 Resp 20 20 B/P (MAP) 131/87 (102) 148/84 (105) Pulse Ox 93 99 O2 Delivery Nasal Cannula Nasal Cannula Nasal Cannula Nasal Cannula O2 Flow Rate 3.0 3.0 05/05/19 05/05/19 05/05/19 05/05/19 07:39 07:54 08:00 08:27 Temp 98.0 98.0 Pulse 64 Resp 20 B/P (MAP) 161/89 (113) Pulse Ox 99 95 O2 Delivery Nasal Cannula Nasal Cannula Nasal Cannula Nasal Cannula O2 Flow Rate 2.0 3.0 3.0 05/05/19 09:27 O2 Delivery Nasal Cannula Intake and Output 05/04/19 05/04/19 05/05/19 15:00 23:00 07:00 Intake Total 250 ml 360 ml Output Total 300 ml 360 ml 0 ml Balance -50 ml 0 ml 0 ml Nutrition Consultation Dietary Evaluation: Recommendations by RD: Dietary education by RD, Increase Calorie Intake, Protein supplementation Comments: ADA/Cardiac diet Glucerna tid Expected Outcomes/Goals: to meet >75% est nutr needs Malnutrition Findings: Body Fat Depletion (Non Severe: Mild Depletion Weight Status: Appropriate TOMAS BAIG MD May 05, 2019 10:17
[2019-05-05 11:24] VITALS: BP 148/84
--- NOTE | 2019-05-05 12:39 | NUR ---
SS following up with discharge planning. PT recommended home independent at discharge. Pt has home oxygen through [facility]. SS discussed with RN. SS will continue to follow for discharge planning.
[2019-05-05 15:09] VITALS: BP 123/85
[2019-05-05 19:48] VITALS: BP 130/79
[2019-05-05] MEDS: MONTELUKAST SODIUM 10 MG TABLET. PO SCH (20:34)
[2019-05-05] MEDS: guaiFENesin ORAL 200 MG/10 ML LIQUID. PO PRN (20:34)
[2019-05-05] MEDS: ATORVASTATIN CALCIUM 10 MG TABLET. PO SCH (20:34)
[2019-05-05] MEDS: traZODone 50 MG TABLET. PO SCH (20:35)
[2019-05-05] MEDS: PATCH REMOVAL. MC SCH (20:35)
[2019-05-05 23:45] VITALS: BP 130/80
[2019-05-06] MEDS: IPRATRPIUM/ALBUTEROL 0.5/2.5MG 3 ML NEBU. NEB SCH ×5 (00:44→15:35)
[2019-05-06] MEDS: cefTRIAXone IV Push 1 GM VIAL. IVP SCH (00:59)
[2019-05-06 03:36] VITALS: BP 132/81
[2019-05-06] MEDS: HYDROcodone/APAP 10/325 1 TAB TABLET PO PRN ×2 (04:47→11:48)
[2019-05-06] MEDS: LORazepam 1 MG TABLET PO SCH (04:47)
[2019-05-06] MEDS: guaiFENesin ORAL 200 MG/10 ML LIQUID. PO PRN ×2 (04:50→09:15)
[2019-05-06 07:55] VITALS: BP 124/76
[2019-05-06] MEDS: INSULIN LISPRO 300 UNITS/3 ML VIAL. SQ SCH ×2 (07:56→11:34)
--- NOTE | 2019-05-06 08:04 | PDOC ---
PROGRESS NOTES History of Present Illness History of Present Illness VTE Prophylaxis Ordered VTE Prophylaxis Devices: Yes VTE Pharmacological Prophylaxi: Yes discharge dx Assessment/Plan impression 1. Acute on chronic HYPOXIC respiratory failure secondary to acute exacerbation of chronic obstructive pulmonary disease and acute bronchitis. 2. Abnormal chest x-ray. 3. Acute exacerbation of chronic obstructive pulmonary disease. 4. Acute bronchitis. 5. END STAGE LUNG DISEASE 6. Very severe chronic obstructive pulmonary disease., endstage 7. Ex-smoker. 8. back pain 9. old compression fracture in the lower thoracic spine. Plan . 1. Titrate FiO2 to keep O2 saturation 92%. 2. Bronchodilator. 3. Inhaled corticosteroid. 4. steroid taper 5. following PULM 6. Lovenox for deep vein thrombosis prophylaxis. 7. Protonix for stress ulcer prophylaxis. 8. The patient is being evaluated for lung transplant at [facility] 9. Continue not smoking. 10. CONT BIPAP qhs 11. pain control 12. ua 13. miralax 05/04 STILL COARSE, WHEEZING SLOW TO IMPROVE 05/05 d/c home 27 min pt exam, chart review d/c planning time, > 50% of time spent with exam, chart review, pt care coordination Vitals Vitals Vital Signs Date Time Temp Pulse Resp B/P (MAP) Pulse Ox O2 Delivery O2 Flow Rate FiO2 05/06/19 07:55 97.8 80 20 124/76 (92) 98 Nasal Cannula 2.0 97.8 Physical Exam General: Alert, Oriented X3, Cooperative, No acute distress Heart: Regular rate, Normal S1, Normal S2 Lungs: Other (diminished, coarse, a few end exp wheezing) Abdomen: Normal bowel sounds, Soft, No tenderness Extremities: No clubbing Skin: No breakdown Labs LABS Laboratory Tests Test 05/05/19 11:04 05/05/19 16:43 05/05/19 20:46 05/06/19 07:35 Glucose (Fingerstick) 146 mg/dL (70-99) 172 mg/dL (70-99) 93 mg/dL (70-99) 114 mg/dL (70-99) Assessment and Plan Assessmemt and Plan Problems Medical Problems: (1) Acute exacerbation of chronic obstructive pulmonary disease (COPD) Status: Acute Comment Review of Relevant I have reviewed the following items franki (where applicable) has been applied. Labs Laboratory Tests Test 05/04/19 10:12 05/04/19 15:59 05/04/19 20:31 05/05/19 03:40 Glucose (Fingerstick) 228 mg/dL (70-99) 130 mg/dL (70-99) 243 mg/dL (70-99) White Blood Count 10.4 x10^3/uL (4.0-11.0) Red Blood Count 3.85 x10^6/uL (4.30-5.70) Hemoglobin 11.3 g/dL (13.0-17.5) Hematocrit 34.0 % (39.0-53.0) Mean Corpuscular Volume 88 fL (79-100) Mean Corpuscular Hemoglobin 30 pg (25-35) Mean Corpuscular Hemoglobin Concent 33 g/dL (31-37) Red Cell Distribution Width 15.0 % (11.5-14.5) Platelet Count 191 x10^3/uL (140-400) Neutrophils (%) (Auto) 94 % (31-73) Lymphocytes (%) (Auto) 2 % (24-48) Monocytes (%) (Auto) 4 % (0-9) Eosinophils (%) (Auto) 0 % (0-3) Basophils (%) (Auto) 0 % (0-3) Neutrophils # (Auto) 9.7 x10^3/uL (1.8-7.7) Lymphocytes # (Auto) 0.2 x10^3/uL (1.0-4.8) Monocytes # (Auto) 0.4 x10^3/uL (0.0-1.1) Eosinophils # (Auto) 0.0 x10^3/uL (0.0-0.7) Basophils # (Auto) 0.0 x10^3/uL (0.0-0.2) Sodium Level 138 mmol/L (136-145) Potassium Level 4.4 mmol/L (3.5-5.1) Chloride Level 100 mmol/L (98-107) Carbon Dioxide Level 33 mmol/L (21-32) Anion Gap 5 (6-14) Blood Urea Nitrogen 19 mg/dL (8-26) Creatinine 0.7 mg/dL (0.7-1.3) Estimated GFR (Cockcroft-Gault) 139.7 Glucose Level 206 mg/dL (70-99) Calcium Level 9.4 mg/dL (8.5-10.1) Test 05/05/19 07:27 05/05/19 11:04 05/05/19 16:43 05/05/19 20:46 Glucose (Fingerstick) 117 mg/dL (70-99) 146 mg/dL (70-99) 172 mg/dL (70-99) 93 mg/dL (70-99) Test 05/06/19 07:35 Glucose (Fingerstick) 114 mg/dL (70-99) Laboratory Tests Test 05/05/19 11:04 05/05/19 16:43 05/05/19 20:46 05/06/19 07:35 Glucose (Fingerstick) 146 mg/dL (70-99) 172 mg/dL (70-99) 93 mg/dL (70-99) 114 mg/dL (70-99) Medications Current Medications Albuterol Sulfate (Ventolin Neb Soln) 10 mg 1X ONCE CONT NEB Last administered on 04/30/19at 18:12; Start 04/30/19 at 18:00; Stop 04/30/19 at 18:01; Status DC Methylprednisolone Sodium Succinate (SOLU-Medrol 125MG VIAL) 125 mg 1X ONCE IV Last administered on 04/30/19at 18:51; Start 04/30/19 at 18:00; Stop 04/30/19 at 18:01; Status DC Ondansetron HCl (Zofran) 4 mg PRN Q8HRS PRN IV NAUSEA/VOMITING; Start 04/30/19 at 19:45; Stop 05/01/19 at 19:44; Status DC Fentanyl Citrate (Fentanyl 2ml Vial) 50 mcg PRN Q1HR PRN IV PAIN Last administered on 05/01/19at 14:43; Start 04/30/19 at 19:45; Stop 05/01/19 at 19:44; Status DC Albuterol/ Ipratropium (Duoneb) 3 ml RTQID NEB Last administered on 04/30/19at 20:00; Start 04/30/19 at 20:00; Stop 04/30/19 at 23:47; Status DC Insulin Human Lispro (HumaLOG) 0-5 UNITS TIDWMEALS SQ Last administered on 05/05/19at 16:53; Start 05/01/19 at 08:00 Dextrose (Dextrose 50%-Water Syringe) 12.5 gm PRN Q15MIN PRN IV SEE COMMENTS; Start 04/30/19 at 23:30 Dextrose (Iv Dextrose 5%) 250 ml PRN Q15MIN PRN IV SEE COMMENTS; Start 04/30/19 at 23:30 Methylprednisolone Sodium Succinate (SOLU-Medrol 125MG VIAL) 62.5 mg Q8HRS IV Last administered on 05/03/19at 05:25; Start 05/01/19 at 06:00; Stop 05/03/19 at 08:10; Status DC Ceftriaxone Sodium (Rocephin) 1 gm Q24H IVP Last administered on 05/06/19at 00:59; Start 04/30/19 at 23:30 Aspirin (Ecotrin) 81 mg DAILYWBKFT PO Last administered on 05/05/19 08:18; Start 05/01/19 at 08:00 Atorvastatin Calcium (Lipitor) 10 mg HS PO Last administered on 05/05/19at 20:34; Start 05/01/19 at 21:00 Benzonatate (Tessalon Perle) 100 mg TID PO Last administered on 05/05/19 20:35; Start 05/01/19 at 09:00 Docusate Sodium (Colace) 100 mg DAILY PO Last administered on 05/04/19at 08:30; Start 05/01/19 at 09:00 Ferrous Sulfate (Feosol) 325 mg DAILY PO Last administered on 05/05/19at 08:19; Start 05/01/19 at 09:00 Fluticasone Propionate (Flonase) 2 spray DAILY NS Last administered on 05/04/19 08:32; Start 05/01/19 at 09:00 Furosemide (Lasix) 40 mg DAILY PO Last administered on 05/05/19 08:20; Start 05/01/19 at 09:00 Guaifenesin (Robitussin) 200 mg PRN Q4HRS PRN PO COUGH; Start 04/30/19 at 23:30; Stop 05/02/19 at 11:08; Status DC Acetaminophen/ Hydrocodone Bitart (Lortab 10/325) 1 tab PRN Q6HRS PRN PO MODERATE-SEVERE PAIN Last administered on 05/06/19 04:47; Start 04/30/19 at 23:30 Albuterol/ Ipratropium (Duoneb) 3 ml RTQID NEB Last administered on 05/02/19 08:03; Start 05/01/19 at 08:00; Stop 05/02/19 at 11:09; Status DC Lactobacillus Rhamnosus (Culturelle) 1 cap BID PO Last administered on 05/05/19 20:35; Start 05/01/19 at 09:00 Lidocaine (Lidoderm) 1 patch DAILY TP ; Start 05/01/19 at 09:00 Lorazepam (Ativan) 1 mg BID PO ; Start 05/01/19 at 09:00; Stop 05/01/19 at 05:01; Status DC Al Hydroxide/Mg Hydroxide (Mylanta Plus Xs) 30 ml PRN DAILY PRN PO HEARTBURN / GAS; Start 04/30/19 at 23:30; Status Cancel Metformin HCl (Glucophage) 500 mg DAILYWBKFT PO Last administered on 05/05/19 08:19; Start 05/01/19 at 08:00 Metoclopramide HCl (Reglan) 5 mg QID PO Last administered on 05/05/19 20:34; Start 05/01/19 at 09:00 Montelukast Sodium (Singulair) 10 mg QHS PO Last administered on 05/05/19 20:34; Start 05/01/19 at 21:00 Polyethylene Glycol (miraLAX PACKET) 17 gm BID PO Last administered on 05/05/19 08:18; Start 05/01/19 at 09:00 Potassium Chloride (Klor-Con) 20 meq DAILYWBKFT PO Last administered on 05/05/19 08:19; Start 05/01/19 at 08:00 Sodium Chloride (Saline Mist Nasal) 1 angel PRN Q1HR PRN NS NASAL CONGESTION Last administered on 05/01/19 09:35; Start 04/30/19 at 23:30 Trazodone HCl (Desyrel) 50 mg QHS PO Last administered on 05/05/19 20:35; Start 05/01/19 at 21:00 Vitamin D (Vitamin D3) 5,000 unit DAILY PO Last administered on 3/23/20at 08:19; Start 05/01/19 at 09:00 Pantoprazole Sodium (Protonix) 40 mg DAILYAC PO Last administered on 05/05/19at 08:19; Start 05/01/19 at 07:30 Miscellaneous (Lidoderm Patch Removal) 1 ea QHS ; Start 05/01/19 at 21:00 Lorazepam (Ativan) 1 mg Q12H PO Last administered on 05/06/19at 04:47; Start 05/01/19 at 05:00 Albuterol Sulfate (Ventolin Neb Soln) 2.5 mg PRN Q4HRS PRN NEB SHORTNESS OF BREATH Last administered on 05/02/19at 04:20; Start 05/01/19 at 05:15 Sodium Chloride (Normal Saline Flush) 3 ml QSHIFT PRN IV AFTER MEDS AND BLOOD DRAWS; Start 05/01/19 at 10:45 Ondansetron HCl (Zofran) 4 mg PRN Q4HRS PRN IV NAUSEA/VOMITING; Start 05/01/19 at 10:45 Acetaminophen (Tylenol) 650 mg PRN Q4HRS PRN PO TEMP OVER 100.4F OR MILD PAIN; Start 05/01/19 at 10:45 Al Hydroxide/Mg Hydroxide (Mylanta Plus Xs) 30 ml PRN DAILY PRN PO HEARTBURN / GAS; Start 05/01/19 at 10:45 Clonidine HCl (Catapres) 0.1 mg PRN Q6HRS PRN PO SBP>160 OR DBP>90; Start 05/01/19 at 10:45 Docusate Sodium (Colace) 100 mg PRN BID PRN PO CONSTIPATION; Start 05/01/19 at 10:45 Albuterol/ Ipratropium (Duoneb) 3 ml Q4HRS NEB Last administered on 05/06/19at 07:08; Start 05/01/19 at 11:00 Guaifenesin (Robitussin) 200 mg PRN Q4HRS PRN PO COUGH Last administered on 05/06/19at 04:50; Start 05/01/19 at 10:45 Enoxaparin Sodium (Lovenox 40mg Syringe) 40 mg Q24H SQ ; Start 05/01/19 at 11:00 Sodium Chloride 1,000 ml @ 75 mls/hr [id number] IV Last administered on 05/04/19at 05:33; Start 05/01/19 at 13:15; Stop 05/05/19 at 07:29; Status DC Methylprednisolone Sodium Succinate (SOLU-Medrol 40MG VIAL) 40 mg Q8HRS IV Last administered on 05/04/19at 13:50; Start 05/03/19 at 14:00; Stop 05/04/19 at 14:57; Status DC Guaifenesin (MUCINEX ER with DM) 1 tab BID PO Last administered on 05/05/19at 21:00; Start 05/03/19 at 21:00 Fluticasone Propionate (Flonase) 2 spray DAILY NS ; Start 05/05/19 at 09:00; Status UNV Methylprednisolone Sodium Succinate (SOLU-Medrol 40MG VIAL) 40 mg Q12HR IV Last administered on 05/05/19at 20:35; Start 05/04/19 at 21:00 Active Scripts Active Trazodone Hcl 50 Mg Tablet 50 Mg PO QHS 30 Days Proair Hfa Inhaler (Albuterol Sulfate) 8.5 Gm Hfa.aer.ad 2 Puff IH PRN Q4-6HRS PRN 21 Days Mag-Al Plus Xs Suspension (Mag Hydrox/Al Hydrox/Simeth) 30 Ml Oral.susp 30 Ml PO PRN DAILY PRN 10 Days [place] (Sodium Chloride) 44 Ml [place] 1 Angel NS PRN Q1HR PRN 10 Days Hydrocodone-Apap 10-325 (Hydrocodone Bit/Acetaminophen) 1 Tab Tablet 1 Tab PO PRN Q6HRS PRN Culturelle (Lactobacillus Rhamnosus Gg) 1 Each Cap.sprink 1 Cap PO BID 30 Days Colace (Docusate Sodium) 100 Mg Capsule 100 Mg PO DAILY 30 Days Fluticasone Propionate Nasal [place] (Fluticasone Propionate) 16 Gm [place].susp 2 [place] NS DAILY 30 Days Miralax (Polyethylene Glycol 3350) 119 Gm Powder 17 Gm PO BID Duoneb 0.5-3(2.5) Mg/3 Ml (Albuterol/Ipratropium) 3 Ml Ampul.neb 3 Ml NEB QID Tessalon Perle (Benzonatate) 100 Mg Capsule 1 Cap PO TID Montelukast Sodium Tablet (Montelukast Sodium) 10 Mg Tablet 10 Mg PO QHS Lidocaine PATCH (Lidocaine) 1 Each Adh..patch 1 Each TP DAILY 30 Days REMOVE AFTER 12 HOURS Aspirin Ec (Aspirin) 81 Mg Tablet. 81 Mg PO DAILYWBKFT 30 Days Guaifenesin 100 Mg/5 Ml Liquid 200 Mg PO PRN Q4HRS PRN 30 Days Reglan (Metoclopramide Hcl) 10 Mg Tablet 0.5 Tab PO QID 30 Days Reported Lasix (Furosemide) 40 Mg Tablet 1 Tab PO DAILY 30 Days Feosol (Ferrous Sulfate) 325 Mg Tablet 1 Tab PO DAILY 30 Days Ativan (Lorazepam) 1 Mg Tablet 1 Mg PO BID Metformin Hcl 500 Mg Tablet 500 Mg PO DAILYWBKFT Vitamin D3 (Cholecalciferol (Vitamin D3)) 5,000 Unit Tablet 5,000 Unit PO DAILY Potassium Chloride (Potassium Chloride) 20 Meq Tablet.er 20 Meq PO DAILY Protonix (Pantoprazole Sodium) 20 Mg Tablet. 2 Tab PO DAILY Atorvastatin Calcium 10 Mg Tablet 10 Mg PO HS Symbicort 160-4.5 Mcg Inhaler (Budesonide/Formoterol Fumarate) 10.2 Gm Hfa.aer.ad 2 Puff IH BID Vitals/I & O Vital Sign - Last 24 Hours 05/05/19 05/05/19 05/05/19 05/05/19 08:27 09:27 11:24 11:55 Temp 98.2 98.2 Pulse 85 Resp 20 B/P (MAP) 148/84 (105) Pulse Ox 96 98 O2 Delivery Nasal Cannula Nasal Cannula Nasal Cannula Nasal Cannula O2 Flow Rate 2.0 3.0 05/05/19 05/05/19 05/05/19 05/05/19 14:26 14:41 15:09 15:26 Temp 98.1 98.1 Pulse 109 Resp 20 18 B/P (MAP) 123/85 (98) Pulse Ox 98 97 O2 Delivery Nasal Cannula Nasal Cannula Nasal Cannula Nasal Cannula O2 Flow Rate 3.0 2.0 3.0 05/05/19 05/05/19 05/05/19 05/05/19 19:48 20:00 20:35 21:24 Temp 97.9 97.9 Pulse 78 Resp 20 B/P (MAP) 130/79 (96) Pulse Ox 98 98 100 O2 Delivery Nasal Cannula Nasal Cannula Nasal Cannula Nasal Cannula O2 Flow Rate 2.0 3.0 2.0 2.0 05/05/19 05/06/19 05/06/19 05/06/19 23:45 00:44 03:36 04:09 Temp 97.7 98.0 97.7 98.0 Pulse 85 80 Resp 20 20 B/P (MAP) 130/80 (97) 132/81 (98) Pulse Ox 98 97 O2 Delivery Nasal Cannula Nasal Cannula Nasal Cannula Nasal Cannula O2 Flow Rate 2.0 2.0 2.0 2.0 05/06/19 05/06/19 05/06/19 05/06/19 04:47 05:47 07:08 07:55 Temp 97.8 97.8 Pulse 80 Resp 20 B/P (MAP) 124/76 (92) Pulse Ox 97 97 98 98 O2 Delivery Nasal Cannula Nasal Cannula Nasal Cannula Nasal Cannula O2 Flow Rate 2.0 2.0 3.0 2.0 Intake and Output 05/05/19 05/05/19 05/06/19 15:00 23:00 07:00 Intake Total 500 ml 200 ml 800 ml Balance 500 ml 200 ml 800 ml Nutrition Consultation Dietary Evaluation: Recommendations by RD: Dietary education by RD, Increase Calorie Intake, Protein supplementation Comments: ADA/Cardiac diet Glucerna tid Expected Outcomes/Goals: to meet >75% est nutr needs Malnutrition Findings: Body Fat Depletion (Non Severe: Mild Depletion Weight Status: Appropriate TOMAS BAIG MD May 06, 2019 08:04
[2019-05-06] MEDS: FLUTICASONE 50MCG/NASAL SPRAY 16GM BOTTLE. NS SCH (09:00)
[2019-05-06] MEDS: LIDOCAINE (700MG/PATCH) PATCH. TP SCH (09:00)
[2019-05-06] MEDS: BENZONATATE 100 MG CAPSULE. PO SCH ×2 (09:00→11:43)
[2019-05-06] MEDS: methylPREDNISolone SOD SUCC PF 40 MG/ML VIAL. IV SCH (09:00)
[2019-05-06] MEDS: ASPIRIN ENTERIC COATED 81 MG TABLET.DR. PO SCH (09:09)
[2019-05-06] MEDS: METOCLOPRAMIDE 10 MG TABLET. PO SCH ×2 (09:09→11:47)
[2019-05-06] MEDS: POTASSIUM CHLORIDE 20 MEQ TABLET.ER. PO SCH (09:09)
[2019-05-06] MEDS: PANTOPRAZOLE 40 MG TABLET.DR. PO SCH (09:09)
[2019-05-06] MEDS: FUROSEMIDE 40 MG TABLET. PO SCH (09:10)
[2019-05-06] MEDS: DOCUSATE SODIUM 100 MG CAPSULE. PO SCH (09:10)
[2019-05-06] MEDS: ENOXAPARIN 40 MG/0.4 ML SYRINGE. SQ SCH (09:10)
[2019-05-06] MEDS: POLYETHYLENE GLYCOL 3350 17 GM PACKET. PO SCH (09:10)
[2019-05-06] MEDS: FERROUS SULFATE 325 MG TABLET. PO SCH (09:10)
[2019-05-06] MEDS: metFORMIN 500 MG TABLET PO SCH (09:10)
[2019-05-06] MEDS: LACTOBACILLUS RHAMNOSUS GG 1 CAPSULE. PO SCH (09:10)
[2019-05-06] MEDS: guaiFENesin DM 600/30MG 1 TAB TAB.ER.12H PO SCH (09:10)
[2019-05-06] MEDS: CHOLECALCIFEROL (VITAMIN D3) 5,000 UNIT CAPSULE PO SCH (09:10)
--- NOTE | 2019-05-06 09:26 | PDOC ---
PULMONARY PROGRESS NOTES Subjective No shortness of air no increasing chest pain or pressure. No nausea vomiting diarrhea Vitals Vital Signs Date Time Temp Pulse Resp B/P (MAP) Pulse Ox O2 Delivery O2 Flow Rate FiO2 05/06/19 07:55 97.8 80 20 124/76 (92) 98 Nasal Cannula 2.0 97.8 ROS: No Nausea, No Chest Pain, No Abdominal Pain, No Increase Cough General: Alert Lungs: Other (diminished, coarse, a few end exp wheezing) Cardiovascular: S1, S2 Abdomen: Soft, Non-tender Neuro Exam: Alert Extremities: No Edema Skin: Warm Labs Laboratory Tests Test 05/04/19 10:12 05/04/19 15:59 05/04/19 20:31 05/05/19 03:40 Glucose (Fingerstick) 228 mg/dL (70-99) 130 mg/dL (70-99) 243 mg/dL (70-99) White Blood Count 10.4 x10^3/uL (4.0-11.0) Red Blood Count 3.85 x10^6/uL (4.30-5.70) Hemoglobin 11.3 g/dL (13.0-17.5) Hematocrit 34.0 % (39.0-53.0) Mean Corpuscular Volume 88 fL (79-100) Mean Corpuscular Hemoglobin 30 pg (25-35) Mean Corpuscular Hemoglobin Concent 33 g/dL (31-37) Red Cell Distribution Width 15.0 % (11.5-14.5) Platelet Count 191 x10^3/uL (140-400) Neutrophils (%) (Auto) 94 % (31-73) Lymphocytes (%) (Auto) 2 % (24-48) Monocytes (%) (Auto) 4 % (0-9) Eosinophils (%) (Auto) 0 % (0-3) Basophils (%) (Auto) 0 % (0-3) Neutrophils # (Auto) 9.7 x10^3/uL (1.8-7.7) Lymphocytes # (Auto) 0.2 x10^3/uL (1.0-4.8) Monocytes # (Auto) 0.4 x10^3/uL (0.0-1.1) Eosinophils # (Auto) 0.0 x10^3/uL (0.0-0.7) Basophils # (Auto) 0.0 x10^3/uL (0.0-0.2) Sodium Level 138 mmol/L (136-145) Potassium Level 4.4 mmol/L (3.5-5.1) Chloride Level 100 mmol/L (98-107) Carbon Dioxide Level 33 mmol/L (21-32) Anion Gap 5 (6-14) Blood Urea Nitrogen 19 mg/dL (8-26) Creatinine 0.7 mg/dL (0.7-1.3) Estimated GFR (Cockcroft-Gault) 139.7 Glucose Level 206 mg/dL (70-99) Calcium Level 9.4 mg/dL (8.5-10.1) Test 05/05/19 07:27 05/05/19 11:04 05/05/19 16:43 05/05/19 20:46 Glucose (Fingerstick) 117 mg/dL (70-99) 146 mg/dL (70-99) 172 mg/dL (70-99) 93 mg/dL (70-99) Test 05/06/19 07:35 Glucose (Fingerstick) 114 mg/dL (70-99) Laboratory Tests Test 05/05/19 11:04 05/05/19 16:43 05/05/19 20:46 05/06/19 07:35 Glucose (Fingerstick) 146 mg/dL (70-99) 172 mg/dL (70-99) 93 mg/dL (70-99) 114 mg/dL (70-99) Medications Active Scripts Medications Dose Route/Sig Max Daily Dose Days Date Category Dose Instructions Trazodone Hcl 50 Mg Tablet 50 Mg PO QHS 30 03/14/19 Rx Proair Hfa Inhaler (Albuterol Sulfate) 8.5 Gm Hfa.aer.ad 2 Puff IH PRN Q4-6HRS PRN 21 01/17/19 Rx Lasix (Furosemide) 40 Mg Tablet 1 Tab PO DAILY 01/09/19 Reported Feosol (Ferrous Sulfate) 325 Mg Tablet 1 Tab PO DAILY 01/09/19 Reported Mag-Al Plus Xs Suspension (Mag Hydrox/Al Hydrox/Simeth) 30 Ml Oral.susp 30 Ml PO PRN DAILY PRN 12/31/18 Rx [place] (Sodium Chloride) 44 Ml [place] 1 Angel NS PRN Q1HR PRN 19 Rx Hydrocodone-Apap 10-325 (Hydrocodone Bit/Acetaminophen) 1 Tab Tablet 1 Tab PO PRN Q6HRS PRN 12/22/18 Rx Ativan (Lorazepam) 1 Mg Tablet 1 Mg PO BID 12/20/18 Reported Culturelle (Lactobacillus Rhamnosus Gg) 1 Each Cap.sprink 1 Cap PO BID 30 11/11/18 Rx Colace (Docusate Sodium) 100 Mg Capsule 100 Mg PO DAILY 30 11/11/18 Rx Fluticasone Propionate Nasal [place] (Fluticasone Propionate) 16 Gm [place].susp 2 [place] NS DAILY 30 11/11/18 Rx Miralax (Polyethylene Glycol 3350) 119 Gm Powder 17 Gm PO BID 11/03/18 Rx Duoneb 0.5-3(2.5) Mg/3 Ml (Albuterol/Ipratropium) 3 Ml Ampul.neb 3 Ml NEB QID 10/28/18 Rx Tessalon Perle (Benzonatate) 100 Mg Capsule 1 Cap PO TID 10/28/18 Rx Montelukast Sodium Tablet (Montelukast Sodium) 10 Mg Tablet 10 Mg PO QHS 10/28/18 Rx Lidocaine PATCH (Lidocaine) 1 Each Adh..patch 1 Each TP DAILY 30 09/11/18 Rx REMOVE AFTER 12 HOURS Metformin Hcl 500 Mg Tablet 500 Mg PO DAILYWBKFT 09/09/18 Reported Aspirin Ec (Aspirin) 81 Mg Tablet.dr 81 Mg PO DAILYWBKFT 30 08/28/18 Rx Guaifenesin 100 Mg/5 Ml Liquid 200 Mg PO PRN Q4HRS PRN 30 05/30/18 Rx Vitamin D3 (Cholecalciferol (Vitamin D3)) 5,000 Unit Tablet 5,000 Unit PO DAILY 03/15/18 Reported Reglan (Metoclopramide Hcl) 10 Mg Tablet 0.5 Tab PO QID 30 02/14/18 Rx Potassium Chloride (Potassium Chloride) 20 Meq Tablet.er 20 Meq PO DAILY 01/13/18 Reported Protonix (Pantoprazole Sodium) 20 Mg Tablet.dr 2 Tab PO DAILY 11/18/17 Reported Atorvastatin Calcium 10 Mg Tablet 10 Mg PO HS 08/21/17 Reported Symbicort 160-4.5 Mcg Inhaler (Budesonide/Formoterol Fumarate) 10.2 Gm Hfa.aer.ad 2 Puff IH BID 09/21/15 Reported Impression . IMPRESSION:1. Acute on chronic respiratory failure, the patient failed outpatient treatment. 2. Obstructive sleep apnea. 3. History of deep venous thrombosis and pulmonary embolism. 4. Clinical depression. 5. History of vertebral compression fractures. 6. Diabetes with peripheral neuropathy. 7. Hypertension. Plan . Patient back to baseline, will be discharged home. His respiratory status is still tenuous, considering the current outbreak of coronavirus, best to discharge home. Patient's previous FEV1 was less than 25% of predicted. SCOTT COOK MD May 06, 2019 09:26
[2019-05-06 11:00] VITALS: BP 119/87
--- NOTE | 2019-05-06 12:38 | PDOC3 ---
Discharge Summary Date of Admission: May 01, 2019 Date of Discharge: May 06, 2019 Follow-Up: 3-5 days Admitting Diagnosis comment: discharge dx Assessment/Plan impression 1. Acute on chronic HYPOXIC respiratory failure secondary to acute exacerbation of chronic obstructive pulmonary disease and acute bronchitis. 2. Abnormal chest x-ray. 3. Acute exacerbation of chronic obstructive pulmonary disease. 4. Acute bronchitis. 5. END STAGE LUNG DISEASE 6. Very severe chronic obstructive pulmonary disease., endstage 7. Ex-smoker. 8. back pain 9. old compression fracture in the lower thoracic spine. Plan . 1. Titrate FiO2 to keep O2 saturation 92%. 2. Bronchodilator. 3. Inhaled corticosteroid. 4. steroid taper 5. following PULM 6. Lovenox for deep vein thrombosis prophylaxis. 7. Protonix for stress ulcer prophylaxis. 8. The patient is being evaluated for lung transplant at [place] 9. Continue not smoking. 10. CONT BIPAP qhs 11. pain control 12. ua 13. miralax 05/04 STILL COARSE, WHEEZING SLOW TO IMPROVE 05/05 d/c home 27 min pt exam, chart review d/c planning time, > 50% of time spent with exam, chart review, pt care coordination Vitals Vitals Vital Signs Date Time Temp Pulse Resp B/P (MAP) Pulse Ox O2 Delivery O2 Flow Rate FiO2 05/06/19 07:55 97.8 80 20 124/76 (92) 98 Nasal Cannula 2.0 97.8 Physical Exam General: Alert, Oriented X3, Cooperative, No acute distress Heart: Regular rate, Normal S1, Normal S2 Lungs: Other (diminished, coarse, a few end exp wheezing) Abdomen: Normal bowel sounds, Soft, No tenderness Extremities: No clubbing Skin: No breakdown Labs LABS Laboratory Tests Test 05/05/19 11:04 05/05/19 16:43 05/05/19 20:46 05/06/19 07:35 Glucose (Fingerstick) 146 mg/dL (70-99) 172 mg/dL (70-99) 93 mg/dL (70-99) 114 mg/dL (70-99) Assessment and Plan Assessmemt and Plan Problems Medical Problems: (1) Acute exacerbation of chronic obstructive pulmonary disease (COPD) Status: Acute FINAL DIAGNOSIS Problems Medical Problems: (1) Acute exacerbation of chronic obstructive pulmonary disease (COPD) Status: Acute Brief Hospital Course Mr. Nash is a 58 old [sex] who presented with [acute copd exac ] CONDITION AT DISCHARGE: Improved Discharge Medications Current Medications Albuterol Sulfate (Ventolin Neb Soln) 10 mg 1X ONCE CONT NEB Last administered on 04/30/19at 18:12; Start 04/30/19 at 18:00; Stop 04/30/19 at 18:01; Status DC Methylprednisolone Sodium Succinate (SOLU-Medrol 125MG VIAL) 125 mg 1X ONCE IV Last administered on 04/30/19at 18:51; Start 04/30/19 at 18:00; Stop 04/30/19 at 18:01; Status DC Ondansetron HCl (Zofran) 4 mg PRN Q8HRS PRN IV NAUSEA/VOMITING; Start 04/30/19 at 19:45; Stop 05/01/19 at 19:44; Status DC Fentanyl Citrate (Fentanyl 2ml Vial) 50 mcg PRN Q1HR PRN IV PAIN Last administered on 05/01/19at 14:43; Start 04/30/19 at 19:45; Stop 05/01/19 at 19:44; Status DC Albuterol/ Ipratropium (Duoneb) 3 ml RTQID NEB Last administered on 04/30/19at 20:00; Start 04/30/19 at 20:00; Stop 04/30/19 at 23:47; Status DC Insulin Human Lispro (HumaLOG) 0-5 UNITS TIDWMEALS SQ Last administered on 05/05/19at 16:53; Start 05/01/19 at 08:00 Dextrose (Dextrose 50%-Water Syringe) 12.5 gm PRN Q15MIN PRN IV SEE COMMENTS; Start 04/30/19 at 23:30 Dextrose (Iv Dextrose 5%) 250 ml PRN Q15MIN PRN IV SEE COMMENTS; Start 04/30/19 at 23:30 Methylprednisolone Sodium Succinate (SOLU-Medrol 125MG VIAL) 62.5 mg Q8HRS IV Last administered on 05/03/19at 05:25; Start 05/01/19 at 06:00; Stop 05/03/19 at 08:10; Status DC Ceftriaxone Sodium (Rocephin) 1 gm Q24H IVP Last administered on 05/06/19 00:59; Start 04/30/19 at 23:30 Aspirin (Ecotrin) 81 mg DAILYWBKFT PO Last administered on 05/06/19 09:09; Start 05/01/19 at 08:00 Atorvastatin Calcium (Lipitor) 10 mg HS PO Last administered on 05/05/19 20:34; Start 05/01/19 at 21:00 Benzonatate (Tessalon Perle) 100 mg TID PO Last administered on 05/05/19 20:35; Start 05/01/19 at 09:00 Docusate Sodium (Colace) 100 mg DAILY PO Last administered on 05/06/19 09:10; Start 05/01/19 at 09:00 Ferrous Sulfate (Feosol) 325 mg DAILY PO Last administered on 05/06/19 09:10; Start 05/01/19 at 09:00 Fluticasone Propionate (Flonase) 2 spray DAILY NS Last administered on 05/06/19 09:00; Start 05/01/19 at 09:00 Furosemide (Lasix) 40 mg DAILY PO Last administered on 05/06/19 09:10; Start 05/01/19 at 09:00 Guaifenesin (Robitussin) 200 mg PRN Q4HRS PRN PO COUGH; Start 04/30/19 at 23:30; Stop 05/02/19 at 11:08; Status DC Acetaminophen/ Hydrocodone Bitart (Lortab 10/325) 1 tab PRN Q6HRS PRN PO MODERA TE-SEVERE PAIN Last administered on 05/06/19 11:48; Start 04/30/19 at 23:30 Albuterol/ Ipratropium (Duoneb) 3 ml RTQID NEB Last administered on 05/02/19 08:03; Start 05/01/19 at 08:00; Stop 05/02/19 at 11:09; Status DC Lactobacillus Rhamnosus (Culturelle) 1 cap BID PO Last administered on 05/06/19 09:10; Start 05/01/19 at 09:00 Lidocaine (Lidoderm) 1 patch DAILY TP ; Start 05/01/19 at 09:00 Lorazepam (Ativan) 1 mg BID PO ; Start 05/01/19 at 09:00; Stop 05/01/19 at 05:01; Status DC Al Hydroxide/Mg Hydroxide (Mylanta Plus Xs) 30 ml PRN DAILY PRN PO HEARTBURN / GAS; Start 04/30/19 at 23:30; Status Cancel Metformin HCl (Glucophage) 500 mg DAILYWBKFT PO Last administered on 05/06/19 09:10; Start 05/01/19 at 08:00 Metoclopramide HCl (Reglan) 5 mg QID PO Last administered on 05/06/19 11:47; Start 05/01/19 at 09:00 Montelukast Sodium (Singulair) 10 mg QHS PO Last administered on 05/05/19 20:34; Start 05/01/19 at 21:00 Polyethylene Glycol (miraLAX PACKET) 17 gm BID PO Last administered on 05/06/19 09:10; Start 05/01/19 at 09:00 Potassium Chloride (Klor-Con) 20 meq DAILYWBKFT PO Last administered on 05/06/19 09:09; Start 05/01/19 at 08:00 Sodium Chloride (Saline Mist Nasal) 1 angel PRN Q1HR PRN NS NASAL CONGESTION Last administered on 05/01/19 09:35; Start 04/30/19 at 23:30 Trazodone HCl (Desyrel) 50 mg QHS PO Last administered on 05/05/19 20:35; Start 05/01/19 at 21:00 Vitamin D (Vitamin D3) 5,000 unit DAILY PO Last administered on 05/06/19 09:10; Start 05/01/19 at 09:00 Pantoprazole Sodium (Protonix) 40 mg DAILYAC PO Last administered on 05/06/19 09:09; Start 05/01/19 at 07:30 Miscellaneous (Lidoderm Patch Removal) 1 ea QHS MC ; Start 05/01/19 at 21:00 Lorazepam (Ativan) 1 mg Q12H PO Last administered on 05/06/19 04:47; Start 05/01/19 at 05:00 Albuterol Sulfate (Ventolin Neb Soln) 2.5 mg PRN Q4HRS PRN NEB SHORTNESS OF BREATH Last administered on 05/02/19 04:20; Start 05/01/19 at 05:15 Sodium Chloride (Normal Saline Flush) 3 ml QSHIFT PRN IV AFTER MEDS AND BLOOD DRAWS; Start 05/01/19 at 10:45 Ondansetron HCl (Zofran) 4 mg PRN Q4HRS PRN IV NAUSEA/VOMITING; Start 05/01/19 at 10:45 Acetaminophen (Tylenol) 650 mg PRN Q4HRS PRN PO TEMP OVER 100.4F OR MILD PAIN; Start 05/01/19 at 10:45 Al Hydroxide/Mg Hydroxide (Mylanta Plus Xs) 30 ml PRN DAILY PRN PO HEARTBURN / GAS; Start 05/01/19 at 10:45 Clonidine HCl (Catapres) 0.1 mg PRN Q6HRS PRN PO SBP>160 OR DBP>90; Start 05/01/19 at 10:45 Docusate Sodium (Colace) 100 mg PRN BID PRN PO CONSTIPATION; Start 05/01/19 at 10:45 Albuterol/ Ipratropium (Duoneb) 3 ml Q4HRS NEB Last administered on 05/06/19at 11:10; Start 05/01/19 at 11:00 Guaifenesin (Robitussin) 200 mg PRN Q4HRS PRN PO COUGH Last administered on 05/06/19at 09:15; Start 05/01/19 at 10:45 Enoxaparin Sodium (Lovenox 40mg Syringe) 40 mg Q24H SQ ; Start 05/01/19 at 11:00 Sodium Chloride 1,000 ml @ 75 mls/hr [id number] IV Last administered on 05/04/19at 05:33; Start 05/01/19 at 13:15; Stop 05/05/19 at 07:29; Status DC Methylprednisolone Sodium Succinate (SOLU-Medrol 40MG VIAL) 40 mg Q8HRS IV Last administered on 05/04/19at 13:50; Start 05/03/19 at 14:00; Stop 05/04/19 at 14:57; Status DC Guaifenesin (MUCINEX ER with DM) 1 tab BID PO Last administered on 05/06/19at 09:10; Start 05/03/19 at 21:00 Fluticasone Propionate (Flonase) 2 spray DAILY NS ; Start 05/05/19 at 09:00; Status UNV Methylprednisolone Sodium Succinate (SOLU-Medrol 40MG VIAL) 40 mg Q12HR IV Last administered on 05/05/19at 20:35; Start 05/04/19 at 21:00 Active Scripts Active Trazodone Hcl 50 Mg Tablet 50 Mg PO QHS 30 Days Proair Hfa Inhaler (Albuterol Sulfate) 8.5 Gm Hfa.aer.ad 2 Puff IH PRN Q4-6HRS PRN 21 Days Mag-Al Plus Xs Suspension (Mag Hydrox/Al Hydrox/Simeth) 30 Ml Oral.susp 30 Ml PO PRN DAILY PRN 10 Days Deep Sea (Sodium Chloride) 44 Ml Corea 1 Angel NS PRN Q1HR PRN 10 Days Hydrocodone-Apap 10-325 (Hydrocodone Bit/Acetaminophen) 1 Tab Tablet 1 Tab PO PRN Q6HRS PRN Culturelle (Lactobacillus Rhamnosus Gg) 1 Each Cap.sprink 1 Cap PO BID 30 Days Colace (Docusate Sodium) 100 Mg Capsule 100 Mg PO DAILY 30 Days Fluticasone Propionate Nasal Corea (Fluticasone Propionate) 16 Gm Corea.susp 2 Corea NS DAILY 30 Days Miralax (Polyethylene Glycol 3350) 119 Gm Powder 17 Gm PO BID Duoneb 0.5-3(2.5) Mg/3 Ml (Albuterol/Ipratropium) 3 Ml Ampul.neb 3 Ml NEB QID Tessalon Perle (Benzonatate) 100 Mg Capsule 1 Cap PO TID Montelukast Sodium Tablet (Montelukast Sodium) 10 Mg Tablet 10 Mg PO QHS Lidocaine PATCH (Lidocaine) 1 Each Adh..patch 1 Each TP DAILY 30 Days REMOVE AFTER 12 HOURS Aspirin Ec (Aspirin) 81 Mg Tablet.dr 81 Mg PO DAILYWBKFT 30 Days Guaifenesin 100 Mg/5 Ml Liquid 200 Mg PO PRN Q4HRS PRN 30 Days Reglan (Metoclopramide Hcl) 10 Mg Tablet 0.5 Tab PO QID 30 Days Reported Lasix (Furosemide) 40 Mg Tablet 1 Tab PO DAILY 30 Days Feosol (Ferrous Sulfate) 325 Mg Tablet 1 Tab PO DAILY 30 Days Ativan (Lorazepam) 1 Mg Tablet 1 Mg PO BID Metformin Hcl 500 Mg Tablet 500 Mg PO DAILYWBKFT Vitamin D3 (Cholecalciferol (Vitamin D3)) 5,000 Unit Tablet 5,000 Unit PO DAILY Potassium Chloride (Potassium Chloride) 20 Meq Tablet.er 20 Meq PO DAILY Protonix (Pantoprazole Sodium) 20 Mg Tablet.dr 2 Tab PO DAILY Atorvastatin Calcium 10 Mg Tablet 10 Mg PO HS Symbicort 160-4.5 Mcg Inhaler (Budesonide/Formoterol Fumarate) 10.2 Gm Hfa.aer.ad 2 Puff IH BID Vital Signs Vital Signs Date Time Temp Pulse Resp B/P (MAP) Pulse Ox O2 Delivery O2 Flow Rate FiO2 05/06/19 11:10 99 Nasal Cannula 3.0 05/06/19 11:00 97.8 98 19 119/87 (98) 97.8 Labs Laboratory Tests Test 05/04/19 15:59 05/04/19 20:31 05/05/19 03:40 05/05/19 07:27 Glucose (Fingerstick) 130 mg/dL (70-99) 243 mg/dL (70-99) 117 mg/dL (70-99) White Blood Count 10.4 x10^3/uL (4.0-11.0) Red Blood Count 3.85 x10^6/uL (4.30-5.70) Hemoglobin 11.3 g/dL (13.0-17.5) Hematocrit 34.0 % (39.0-53.0) Mean Corpuscular Volume 88 fL (79-100) Mean Corpuscular Hemoglobin 30 pg (25-35) Mean Corpuscular Hemoglobin Concent 33 g/dL (31-37) Red Cell Distribution Width 15.0 % (11.5-14.5) Platelet Count 191 x10^3/uL (140-400) Neutrophils (%) (Auto) 94 % (31-73) Lymphocytes (%) (Auto) 2 % (24-48) Monocytes (%) (Auto) 4 % (0-9) Eosinophils (%) (Auto) 0 % (0-3) Basophils (%) (Auto) 0 % (0-3) Neutrophils # (Auto) 9.7 x10^3/uL (1.8-7.7) Lymphocytes # (Auto) 0.2 x10^3/uL (1.0-4.8) Monocytes # (Auto) 0.4 x10^3/uL (0.0-1.1) Eosinophils # (Auto) 0.0 x10^3/uL (0.0-0.7) Basophils # (Auto) 0.0 x10^3/uL (0.0-0.2) Sodium Level 138 mmol/L (136-145) Potassium Level 4.4 mmol/L (3.5-5.1) Chloride Level 100 mmol/L (98-107) Carbon Dioxide Level 33 mmol/L (21-32) Anion Gap 5 (6-14) Blood Urea Nitrogen 19 mg/dL (8-26) Creatinine 0.7 mg/dL (0.7-1.3) Estimated GFR (Cockcroft-Gault) 139.7 Glucose Level 206 mg/dL (70-99) Calcium Level 9.4 mg/dL (8.5-10.1) Test 05/05/19 11:04 05/05/19 16:43 05/05/19 20:46 05/06/19 07:35 Glucose (Fingerstick) 146 mg/dL (70-99) 172 mg/dL (70-99) 93 mg/dL (70-99) 114 mg/dL (70-99) Test 05/06/19 11:19 Glucose (Fingerstick) 115 mg/dL (70-99) Laboratory Tests Test 05/05/19 16:43 05/05/19 20:46 05/06/19 07:35 05/06/19 11:19 Glucose (Fingerstick) 172 mg/dL (70-99) 93 mg/dL (70-99) 114 mg/dL (70-99) 115 mg/dL (70-99) Allergies Allergies Coded Allergies Type Severity Reaction Last Updated Verified acetaminophen Allergy Intermediate ITCHES 03/12/19 Yes Disposition/Orders: D/C to Home TOMAS BAIG MD May 06, 2019 12:38
[2019-05-06] MEDS ORDERED: GUAI-108 PO (12:53)
[2019-05-06] MEDS ORDERED: ACET325T9 PO (12:53)
--- NOTE | 2019-05-06 12:58 | DISCH ---
DISCHARGE INSTRUCTIONS Condition on Discharge Condition on Discharge: Stable Activity After Discharge Activity Instructions for Disc: Activity as tolerated, Avoid exertion Lifting Instructions after Dis: No heavy lifting Exercise Instruction after Dis: Progress as tolerated Driving Instructions after Dis: Do not drive, Do not drive today Weight Bearing Status after Di: No restrictions Diet after Discharge Diet after Discharge: Regular Diet Texture: Regular Liquid Texture: Thin Liquid Swallowing Supervision: None needed Wound Incision Care Wound/Incision Care: No wound care needed Checks after Discharge Checks after discharge: Check blood press - daily, Check blood sugar, ac/hs Contacting the DR. after DC Call your doctor for: If your condition worsens Treatment/Equipment after DC Adaptive Equipment Issued: None, Front wheeled walker Discharge Respiratory Equipmen: Oxygen TOMAS BAIG MD May 06, 2019 12:58
--- NOTE | 2019-05-06 16:25 | NUR ---
Discharge Note: KAYLA ROMAN JR [address] [place] [address] Discharge instructions and discharge home medications reviewed with Patient and a copy given. All questions have been answered and understanding verbalized. The following instructions and handouts were given: f/u with pcp within one week. Discontinued lines and drains: Peripheral IV intact. Patient discharged to Home or Self Care with Family Member via Wheelchair.
== END 2019-05-06 16:25 | disposition home or self-care (01) | DRG 189 ==
LOC: ER 17:01 → 6 SOUTH 19:35
PROVIDERS: ADMIT Family Medicine; ATTEND Family Medicine
DX: J96.21 Acute and chronic respiratory failure with hypoxia (principal); I13.0 Hypertensive heart and chronic kidney disease with heart failure and stage 1 through stage 4 chronic kidney disease, or unspecified chronic kidney disease; N17.9 Acute kidney failure, unspecified; J20.9 Acute bronchitis, unspecified; J43.9 Emphysema, unspecified; I50.9 Heart failure, unspecified; E11.22 Type 2 diabetes mellitus with diabetic chronic kidney disease; E11.42 Type 2 diabetes mellitus with diabetic polyneuropathy; E78.5 Hyperlipidemia, unspecified; E86.0 Dehydration; F32.9 Major depressive disorder, single episode, unspecified; G47.33 Obstructive sleep apnea (adult) (pediatric); K52.9 Noninfective gastroenteritis and colitis, unspecified; N18.9 Chronic kidney disease, unspecified; K21.9 Gastro-esophageal reflux disease without esophagitis; M54.9 Dorsalgia, unspecified; F41.9 Anxiety disorder, unspecified; M19.90 Unspecified osteoarthritis, unspecified site; N40.0 Benign prostatic hyperplasia without lower urinary tract symptoms; Z82.49 Family history of ischemic heart disease and other diseases of the circulatory system; Z82.5 Family history of asthma and other chronic lower respiratory diseases; Z83.3 Family history of diabetes mellitus; Z86.711 Personal history of pulmonary embolism; Z86.718 Personal history of other venous thrombosis and embolism; Z87.891 Personal history of nicotine dependence; Z99.81 Dependence on supplemental oxygen; Z87.01 Personal history of pneumonia (recurrent)
CPT/HCPCS: 36415; 36600; 71045; 80048; 80053; 80069; 81001; 82805; 82962; 83880; 84484; 85007; 85025; 87804; 93005; 94640; 94760; 96374; J0696; J1815; J2920; J2930; J3010; J7030; J8597; 97530; 99285-25; G0378; J7613

== ENCOUNTER 2019-05-12 10:54 | Emergency (ER) | payer MEDICARE, MEDICAID ==
[~2019-05-12] VITALS: Ht 180.3 cm; Wt 72.0 kg
[~2019-05-12 10:54] MED LIST changes: +GUAI-108 PO
[2019-05-12 11:20] VITALS: BP 134/80
[2019-05-12] MEDS ORDERED: IPRATRPIUM/ALBUTEROL 0.5/2.5MG 3 ML NEBU. NEB ONE (11:45)
--- NOTE | 2019-05-12 12:09 | RAD ---
Single view of the chest. 05/12/2019 11:40 AM Indication: Shortness of breath Comparison: Chest radiograph April 30, 2019 Findings: No pneumothorax or effusion is seen. Heart size is stable. Emphysematous changes, with significant bullous changes in the left upper lung are similar to comparison study. No new infiltrate is identified. No acute osseous changes are identified. IMPRESSION: Stable significant emphysematous changes without evidence of acute cardiopulmonary process. Electronically signed by: Hilario Reeves MD (05/12/2019 12:06 PM) [id number]
--- NOTE | 2019-05-12 12:59 | PHYS DOC ---
Past Medical History Past Medical History: Anxiety, CHF, COPD, Other Additional Past Medical Histor: OSTEOPOROSIS, O2 DEPENDENT Past Surgical History: Other Additional Past Surgical Histo: HERNIA REPAIR Smoking Status: Former Smoker Alcohol Use: Occasionally Drug Use: Benzodiazepine Adult General Chief Complaint Chief Complaint: SHORTNESS OF BREATH HPI HPI Patient is a 58 year old male presenting to the due to chief complaint of cough. Patient states that he uses 3 L of oxygen home every day. Patient states that the cough has been present for at least 5 days. Patient denies recent travel or exposure to anyone having coronavirus. Patient does say that he has a history of COPD. Patient states that he used his albuterol inhaler at home and that he does not have money to buy cough medication. Review of Systems Review of Systems Patient denies fever, chills, nausea, vomiting, diarrhea, dysuria, chest pain. Patient is complaining of cough and shortness of breath. All other systems were reviewed and found to be within normal limits, except as documented in this note. Current Medications Current Medications Current Medications Medications (Trade) Dose Ordered Sig/Candy Start Time Stop Time Status Last Admin Dose Admin Albuterol/ Ipratropium (Duoneb) 3 ml 1X ONCE 05/12/19 11:45 05/12/19 11:46 DC 05/12/19 12:00 3 ML Allergies Allergies Allergies Coded Allergies Type Severity Reaction Last Updated Verified acetaminophen Allergy Intermediate ITCHES 03/12/19 Yes Physical Exam Physical Exam Constitutional: Well developed, well nourished, no acute distress, non-toxic appearance. HENT: Normocephalic, atraumatic, normocaphalic Eyes: PERRL, EOMI Neck: Normal range of motion, no tenderness, supple Cardiovascular:Heart rate regular rhythm, no murmur Resp: Bilateral wheezing mild Abdomen: Soft, no tenderness, no distension Extremities: No tenderness, ROM intact, no edema. Neurologic: Alert and oriented X 3, normal motor function, normal sensory function, no focal deficits noted. Current Patient Data Vital Signs Vital Signs Date Time Temp Pulse Resp B/P (MAP) Pulse Ox O2 Delivery O2 Flow Rate FiO2 05/12/19 12:25 95 Nasal Cannula 3.0 05/12/19 11:20 99.0 112 20 134/80 (98) 99.0 EKG EKG [] Radiology/Procedures Radiology/Procedures [] Impressions: Chest x-ray does not show any acute disease. Course & Med Decision Making Course & Med Decision Making Pertinent Labs and Imaging studies reviewed. (See chart for details) Chest x-ray does not show any acute disease. Patient is given a DuoNeb breathing treatment. Patient states that his breathing is much better now. Did not give patient steroids secondary to possible exposure to coronavirus. Discussed results and plan of care with patient. Patient does say that we give him a prescription for cough medication he WANTED. Discussed results and plan of care with patient. Patient is instructed to follow up with PCP in one to 2 days. Appropriate discharge instructions given to patient to return to the ED or to seek immediate medical evaluation. Patient is instructed to return to the ED if symptoms worsen or if any concerns. Dragon Disclaimer Dragon Disclaimer This electronic medical record was generated, in whole or in part, using a voice recognition dictation system. Departure Departure Impression: Primary Impression: COPD exacerbation Disposition: 01 HOME, SELF-CARE Condition: IMPROVED Referrals: UNKNOWN PCP NAME (PCP) Patient Instructions: Chronic Obstructive Pulmonary Disease Exacerbation Additional Instructions: Discussed results and plan of care with patient. Patient is instructed to follow up with PCP in one to 2 days. Appropriate discharge instructions given to patient to return to the ED or to seek immediate medical evaluation. Patient is instructed to return to the ED if symptoms worsen or if any concerns. Scripts Benzonatate (TESSALON PERLE) 100 Mg Capsule 1 CAP PO TID, #21 CAP Prov: BRIAN KING DO 05/12/19 BRIAN KING DO May 12, 2019 12:59
[2019-05-12] MEDS ORDERED: BENZ100C PO (13:02)
== END 2019-05-12 13:35 | disposition home or self-care (01) ==
LOC: ER 10:54
DX: J44.1 Chronic obstructive pulmonary disease with (acute) exacerbation (principal); Z86.79 Personal history of other diseases of the circulatory system; Z87.891 Personal history of nicotine dependence; Z88.6 Allergy status to analgesic agent
CPT/HCPCS: 71045; 94640; 99283-25